=== PATIENT | male | born 1965 | race Caucasian/White ===

== ENCOUNTER → 2018-01-10 11:00 | Outpatient (CLI) | payer MEDICARE, SELFPAY ==
[2018-01-10 16:19] LABS: Anion Gap 11 (5-15); BUN 8 mg/dL (7-18); BUN/Creat Ratio 10.3 RATIO (10-20); Calcium,Total 8.8 mg/dL (8.5-10.1); Chloride 89 mmol/L (98-107); Creatinine, Serum 0.77 mg/dL (0.70-1.30); EST Glomerular Filtration Rate 113 mL/min (>60); Est Glom Filt Rate - Afr Amer 137 mL/min (>60); Glucose 113 mg/dL (74-106); Potassium 3.6 mmol/L (3.5-5.1); Sodium Level 127 mmol/L (136-145)
== END ==
PROVIDERS: Family Provider Family Medicine; PCP Family Medicine; Visit Provider Urology
DX: N31.2 Flaccid neuropathic bladder, not elsewhere classified (principal)
CPT/HCPCS: 36415; 80048

== ENCOUNTER → 2018-01-18 10:31 | Outpatient (CLI) | payer MEDICARE, SELFPAY ==
--- NOTE | 2018-01-18 10:33 | US_ITS ---
US Kidney(s) complete (eg, kidneys T bladder) INDICATION: NEUROGENIC BLADDER COMPARISON: None TECHNIQUE: Ultrasonographic grayscale and Doppler investigation of the retroperitoneum including kidneys and urinary bladder FINDINGS: The right kidney measures 10.1 x 4.9 x 3.8 cm with a cortical thickness of 1.7 cm. There is no evidence of hydronephrosis, cyst, or shadowing calculus. The left kidney measures 9.6 x 4.3 x 5.3 cm with a cortical thickness of 1.9 cm. The left renal pelvis appears prominent, possibly due to parapelvic cysts. Multiple renal calculi are seen, measuring between 5 and 2 mm. The urinary bladder contains 173 mL prevoid and 130 mL postvoid. The prostate gland is prominent in size and lobulated, and bulges into the urinary bladder. US/Kidney and Bladder IMPRESSION: Residual postvoid urinary bladder volume is 130 mm, abnormal. Mild prostatomegaly with bulging of the prostate onto the urinary bladder. Correlate with PSA. Left renal pelviectasis or parapelvic renal cysts and multiple left renal calculi. at 2303 Reported and signed by: Katiana Nettles MD Electronically Signed: Katiana Nettles MD at 22:01 EST Tel , Service support ,
== END ==
PROVIDERS: Family Provider Family Medicine; PCP Family Medicine; Visit Provider Urology
DX: N31.9 Neuromuscular dysfunction of bladder, unspecified (principal); N20.0 Calculus of kidney
CPT/HCPCS: 76770

== ENCOUNTER 2020-08-01 19:31 | Emergency (ER) | payer MEDICARE, MEDICAID, SELFPAY ==
[2020-08-01 19:32] VITALS: BP 145/98; PULSE 99; RESP 18; TEMP 36.8; O2SAT 97; BMI 23.4
[2020-08-01 22:10] LABS: Bacteria 0 SEEN /hpf (None Seen); Mucous, Urine 0 SEEN /hpf (<or=2+); Red Blood Cells-Urine 0 SEEN /hpf (0-5); Squamous Epithelial Cells - UA 0 SEEN /hpf (0-5)
[2020-08-01 22:11] LABS: Color, Urine Yellow (Yellow); Glucose, Dipstick Normal (Normal); Ketone-Dipstick Negative (Negative); Leukocyte Esterase-Dipstick 25 /ul (Negative); Nitrite-Dipstick Negative (Negative); Occult Blood-Urine Negative /ul (Negative); Protein-Dipstick 15 mg/dl (Negative); Urine Bilirubin Dipstick Negative (Negative); Urine Clarity Sl. Cloudy (Clear); Urine Urobilinogen Normal (Normal)
[2020-08-01 22:26] VITALS: BP 161/103; PULSE 81; RESP 16; O2SAT 99
[2020-08-01] MEDS: 0.9% Normal Saline 1,000 ML 1000 ML IV (22:41)
--- NOTE | 2020-08-01 22:44 | CT_ITS ---
HISTORY: ABDOMINAL PAIN WITH DISTENTION TECHNIQUE: Helically acquired images were obtained of the abdomen and pelvis without oral or IV contrast. A radiation dose optimization technique was used for this scan. COMPARISON: A renal ultrasound comparison study is available from January 18, 2018. An x-ray of the abdomen is available from September 05, 2015. FINDINGS: # of images incl. paperwork: 470 LUNG BASES: clear. CT abdomen: The left hip is chronically dislocated. There is arthritis in a pseudoarticulation with hyperostosis to a degenerated pseudoacetabulum above the patient's left acetabulum from which the left femoral head has dislocated. This is indicative of severe chronic left hip dislocation. The right hip appears to be adequately aligned. There is a gentle dextroscoliosis within the lumbar spine. Some degenerative disc disease is present. Vertebral body height is otherwise preserved. There is gas and liquid distending the distal esophagus suggestive of a significant reflux disease. The gallbladder is contracted. The liver is displaced posteriorly by bowel, mostly colon. Thespleen, pancreas, and adrenal glands are normal. Nonobstructing left nephrolith. The right kidney is normal. There is some external rotation to the left kidney. An exophytic mass to the left kidney is hypodense, and statistically represents a benign cyst.. The aorta is normal. There is no intra-or extrahepatic biliary ductal dilatation. CT pelvis: No ascites is present. The prostate gland is slightly enlarged indenting into the posterior aspect of the urinary bladder. Within the right chest wall extending down the anterior right abdominal wall, extending into the pelvis through the lateral aspect of the right rectus abdominis muscle is a catheter likely a ventriculoperitoneal shunt.. The appendix is likely normal and tiny, coronal series 601 image 60. The bladder is decompressed with a Bowman catheter. A right posterior lateral bladder diverticulum is present. This is likely just anterior to the right ureterovesicular junction. Bilateral inguinal hernias are present. Both inguinal hernias containing the anterior borders of the urinary bladder greater on the left than right with some bladder wall thickening and induration of the surrounding fat. There may be some bowel wall thickening to the rectum. There is gaseous distention of the redundant sigmoid colon. There is gaseous distention of the transverse colon. The descending colon is almost completely decompressed. There is not a pathological volume of stool within the colon. Small bowel is normal. CT/Abdomen/Pelvis without Cont IMPRESSION: Gaseous distention of the transverse colon and the redundant sigmoid colon extending to the anterior abdominal wall into the abdomen out of the pelvis. This is of unknown etiology but could be due to delayed and decreased motility within the colon. Gas and fluid within a slightly distended esophagus suggestive of esophageal reflux disease. 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 Ventricular peritoneal catheter. Bilateral inguinal hernias containing fat and corners of the urinary bladder with some inflammation to the bladder extending into the left inguinal hernia. Diverticulum of the posterior right lateral aspect of the urinary bladder. The bladder does contain a Bowman catheter but is not completely decompressed. No bowel wall thickening. No constipation. Individualized dose optimization techniques were used for this CT. at 0006 Reported and signed by: Yuval Olson MD Electronically Signed: Yuval Olson MD at 0:05 EDT Tel , Service support ,
[2020-08-01 22:49] LABS: Amorphous Sediment 1+; White Blood Cells 0-5 SEEN /hpf (0-5)
[2020-08-01 22:49] LABS: Absolute Lymphocyte Count 2.59 X10^3/uL (0.83-4.51); Basophil# 0.04 X10^3/uL; Basophil% 0.4 % (0-1); Eosinophil# 0.17 X10^3/uL; Eosinophils% 1.9 % (0-5); Hematocrit 41.1 % (40-54); Hemoglobin 14.3 g/dL (13.0-16.5); Lymphocyte # 2.59 X10^3/ul (4.0); Lymphocyte % 28.6 % (19-41); Mean Corp Hgb Conc 34.8 g/dL (32-36); Mean Corpuscular Hgb 30.3 pg (27.0-32.0); Mean Corpuscular Volume 87.1 fL (80-94); Mean Platelet Vol. 10.1 fl (6.2-12.0); Monocyte# 1.29 X10^3/uL; Monocyte% 14.2 % (0-10); NRBC Flagged by Analyzer 0 % (0-5); Neutrophil # 4.96 X10^3/uL (2.7-7.7); Neutrophil % 54.7 % (47-70); Platelet Count 405 K/mm3 (150-450); RBC Distribution Width CV 12.2 % (11.6-14.6); Red Blood Count 4.72 M/mm3 (4.6-6.2); White Blood Count 9.1 K/mm3 (4.4-11.0)
--- NOTE | 2020-08-01 22:57 | ED.VIS.GI ---
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 Sister who is his primary caregiver, noticed that patient seemed to have a hernia develop in his left groin yesterday. No overlying redness and they called the PCP office who recommended be reevaluated in 24 hours. In addition patient seems to have increased urinary frequency but less drainage. The sister is concerned that he might have urinary retention. Finally, patient has been more distended in his abdomen lately. Did not complain of any abdominal pain. No reported nausea or vomiting. No fever or chills. No chest pain, shortness breath or difficulty breathing. No other complaints at this time. Patient is wheelchair-bound at baseline. Sister states he has had problem with urinary retention in the past and is seen Dr. Oliva. It is been recommended that he requires straight catheterization however he is a difficult catheterization apparently. In addition, he does have history of chronic constipation and has to receive enemas/manual stimulation to have bowel movements. No change in the caliber of his stools. Past Medical History - Allergies and Home Meds Allergies/Adverse Reactions: Allergies Iodinated Contrast Media [Iodinated Contrast Media - IV Dye] Allergy (Verified 08/01/20 19:34) Anaphylaxis nitrofurantoin Adverse Reaction (Verified 08/01/20 19:34) Upset Stomach Primary Care Physician: Damian Aldana MD [Primary Care Provider] - Past Medical History: - - Hydrocephalus, motor neuron damage, urinary retention Smoking Status: Never smoker Review of Systems General: Denies: Chills, Fever, Sweats Eyes: Denies: Visual changes - bilaterally, Diplopia ENT: Denies: Rhinorrhea, Sore throat Cardiovascular: Denies: Chest pain, Palpitations Respiratory: Denies: Dyspnea, Cough, Dyspnea on exertion Gastrointestinal: Reports: Abdominal pain, Constipation - Chronic. Denies: Nausea, Vomiting, Diarrhea, Melena, Hematochezia Genitourinary: Reports: - - Decreased frequency of urination/decreased urinary volumes. Denies: Dysuria, Hematuria, Frequency Musculoskeletal: Denies: Back pain, Extremity Pain Skin: Denies: Rash, Wounds Neurological: Reports: Weakness - Chronic, lower extremities. Denies: Headache, Numbness Physical Exam Vital Signs/Narrative: Vital Signs Temp Pulse Resp BP Pulse Ox 08/01/20 22:26 81 16 161/103 H 99 08/01/20 19:32 98.3 F 99 18 145/98 H 97 Inital Vital Signs reviewed: Yes General: Well nourished, Well developed, No Acute Distress Head: Normocephalic, Atraumatic Eyes: Perrl, EOMI ENT: Moist mucous membranes, No rhinorrhea Neck: Supple, Nontender Cardiovascular: Regular rate, Regular rhythm, No murmurs Respiratory: No distress, CTA bilaterally, Chest nontender Abdomen: Soft, Normal bowel sounds, Tender - Suprapubic region, Hypoactive bowel sounds, Inguinal hernia - Left, soft, no overlying erythema, reducible, - - Distended, palpable bladder. Negative for: Guarding : - - Normal external genitalia, normal testicles, normal lie, no testicular mass noted Extremities: Nontender, No edema Skin: Normal color, No rash Neurological: Alert, Oriented x3, Cranial nerves II-XII grossly intact, Normal Sensation, - - Atrophy and weakness of the lower extremities?chronic Psychological: Normal affect, Normal Mood Diagnostic/Tx/Re-eval Clinical Impression(s) from Imaging Studies Abdomen/Pelvis CT 08/01/20 22:44 IMPRESSION: Gaseous distention of the transverse colon and the redundant sigmoid colon extending to the anterior abdominal wall into the abdomen out of the pelvis. This is of unknown etiology but could be due to delayed and decreased motility within the colon. Gas and fluid within a slightly distended esophagus suggestive of esophageal reflux disease. 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 Ventricular peritoneal catheter. Bilateral inguinal hernias containing fat and corners of the urinary bladder with some inflammation to the bladder extending into the left inguinal hernia. Diverticulum of the posterior right lateral aspect of the urinary bladder. The bladder does contain a Bowman catheter but is not completely decompressed. No bowel wall thickening. No constipation. Individualized dose optimization techniques were used for this CT. at 0006 Reported and signed by: Yuval Olson MD Electronically Signed: Yuval Olson MD at 0:05 EDT Tel , Service support , Laboratory Data 08/01/20 08/01/20 08/01/20 21:04 22:15 22:15 WBC 9.1 RBC 4.72 Hgb 14.3 Hct 41.1 MCV 87.1 MCH 30.3 MCHC 34.8 RDW Std Deviation 39.0 RDW Coeff of Frieda 12.2 Plt Count 405 MPV 10.1 Immature Gran % (Auto) 0.200 Neut % (Auto) 54.7 Lymph % (Auto) 28.6 [place] % (Auto) 14.2 H Eos % (Auto) 1.9 Baso % (Auto) 0.4 Absolute Neuts (auto) 5.0 Absolute Lymphs (auto) 2.59 Nucleated RBC % 0 Sodium 129 L Potassium 3.7 Chloride 94 L Carbon Dioxide 28.0 Anion Gap 7 BUN 12 Creatinine 0.74 Estim Creat Clear Calc 82.58 Est GFR (MDRD) Af Amer 142 Est GFR (MDRD) Non-Af 117 BUN/Creatinine Ratio 16.1 Glucose 106 Lactic Acid Calcium 9.0 Total Bilirubin 0.30 AST 15 ALT 22 Alkaline Phosphatase 73 Total Protein 7.3 Albumin 3.5 Globulin 3.8 Albumin/Globulin Ratio 0.9 Lipase 123 Urine Color Yellow Urine Clarity Sl. Cloudy Urine pH 7.0 Ur Specific [place] 1.010 Urine Protein 15 H Urine Glucose (UA) Normal Urine Ketones Negative Urine Occult Blood Negative Urine Nitrite Negative Urine Bilirubin Negative Urine Urobilinogen Normal Ur Leukocyte Esterase 25 H Urine RBC 0 SEEN Urine WBC 0-5 SEEN Ur Squamous Epith Cells 0 SEEN Amorphous Sediment 1+ Urine Bacteria 0 SEEN Urine Mucus 0 SEEN 08/01/20 22:15 WBC RBC Hgb Hct MCV MCH MCHC RDW Std Deviation RDW Coeff of Frieda Plt Count MPV Immature Gran % (Auto) Neut % (Auto) Lymph % (Auto) [place] % (Auto) Eos % (Auto) Baso % (Auto) Absolute Neuts (auto) Absolute Lymphs (auto) Nucleated RBC % Sodium Potassium Chloride Carbon Dioxide Anion Gap BUN Creatinine Estim Creat Clear Calc Est GFR (MDRD) Af Amer Est GFR (MDRD) Non-Af BUN/Creatinine Ratio Glucose Lactic Acid 0.9 Calcium Total Bilirubin AST ALT Alkaline Phosphatase Total Protein Albumin Globulin Albumin/Globulin Ratio Lipase Urine Color Urine Clarity Urine pH Ur Specific [place] Urine Protein Urine Glucose (UA) Urine Ketones Urine Occult Blood Urine Nitrite Urine Bilirubin Urine Urobilinogen Ur Leukocyte Esterase Urine RBC Urine WBC Ur Squamous Epith Cells Amorphous Sediment Urine Bacteria Urine Mucus - Medical Decision Making Patient is evaluated for difficulty urinating as well as a swelling mass in his left groin area. Physical exam is consistent with a distended abdomen as well as tenderness in the suprapubic region and a reducible left inguinal hernia. Bladder scan performed which shows greater than 500 cc of urine. Bowman catheter is placed and patient ultimately has 1800 cc of urine out. He has improvement of symptoms with this. In addition his hernia seems to improve. CT of the abdomen pelvis is obtained without contrast as patient does have a history of anaphylaxis to contrast. It shows a significant gaseous distention as well as bilateral inguinal hernias with some bladder in the left hernia. This is discussed with surgery who feels that decompression of the bladder is likely treatment enough and patient can follow-up outpatient for the hernias. Patient will be given urology for outpatient follow-up. He has normal kidney function and no significant laboratory normalities. Sister who is his process designer is agreeable with this plan. He is seeing Dr. Oliva the past and is referred back to him for further management of his urinary retention and Bowman catheter. She is given return precautions. Patient and sister verbalized agreement understand this plan. Patient discharged home in improved and stable condition. ED Disposition - Plan for ED Patient: Disposition: Home or Assisted Living Diagnosis: Acute urinary retention, Inguinal hernia, Abdominal distension (gaseous) Instructions: ED Urinary Retention Male, ED Hernia Inguinal, ED Constipation Referrals: Damian Aldana MD [Primary Care Provider] - Kevyn Oliva MD [STAFF PHYSICIAN] - Chang Grant MD [STAFF PHYSICIAN] - Additional Instructions: Please call urology on Tuesday to arrange follow-up. His Bowman catheter will need to stay in for at least 5 to 7 days. This will help decompress the bladder and let the bladder heal from his urinary retention. Given you follow-up information for general surgery for further evaluation of his hernias. Continue with a stool regime to help limit constipation.
[2020-08-01 23:02] LABS: ALB/GLOB Ratio 0.9 RATIO (0.9-2.4); AST(SGOT) 15 U/L (15-37); Alanine Aminotransfer ALT/SGPT 22 U/L (16-61); Albumin, Serum 3.5 g/dL (3.2-5.0); Alkaline Phosphatase 73 U/L (45-117); Anion Gap 7 (5-15); BUN 12 mg/dL (7-18); BUN/Creat Ratio 16.1 RATIO (10-20); Chloride 94 mmol/L (98-107); Creatinine, Serum 0.74 mg/dL (0.70-1.30); EST Glomerular Filtration Rate 117 mL/min (>60); Est Glom Filt Rate - Afr Amer 142 mL/min (>60); Estimated Creatinine Clearance 82.58 ml/min; Globulin 3.8 g/dL (2.2-4.2); Glucose 106 mg/dL (74-106); Lipase 123 U/L (73-393); Potassium 3.7 mmol/L (3.5-5.1); Protein, Total 7.3 g/dL (6.4-8.2); Sodium Level 129 mmol/L (136-145)
[2020-08-01 23:05] LABS: Lactic Acid 0.9 mmol/L (0.4-1.9)
[2020-08-02 00:27] VITALS: BP 146/96; PULSE 81; RESP 16; O2SAT 96
== END 2020-08-02 00:48 | disposition home or self-care (01) ==
PROVIDERS: Emergency Provider Emergency Medicine; PCP Family Medicine
DX: R33.9 Retention of urine, unspecified (principal); K40.90 Unilateral inguinal hernia, without obstruction or gangrene, not specified as recurrent; R14.0 Abdominal distension (gaseous)
CPT/HCPCS: 51702; 74176; 80053; 81001; 83605; 83690; 85025; 96360; 96361; 99285; J7030; A4216

== ENCOUNTER 2020-08-18 11:44 | Emergency (ER) | payer MEDICARE, MEDICAID, SELFPAY ==
[2020-08-18 11:45] VITALS: BP 140/115; PULSE 94; RESP 16; TEMP 36.8; O2SAT 98; BMI 24.0
--- NOTE | 2020-08-18 12:44 | RAD_ITS ---
STUDY: X-RAY - ABDOMEN/PELVIS REASON FOR EXAM: Male, 54 years old. ABDOMINAL PAIN, NO BOWEL MOVEMENT IN 6 DAYS TECHNIQUE: Single AP view of the abdomen / pelvis. COMPARISON: 08/01/2020 FINDINGS: Normal visualized lung bases. There is gaseous distention of the colon, most compatible with a colonic ileus. There is no demonstrated free abdominal air. The visualized liver, spleen and kidneys are grossly normal in size and morphology. Normal soft tissue structures. Normal visualized osseous structures. RAD/Abdomen Single View IMPRESSION: There is gaseous distention of the colon, most compatible with a colonic ileus. Electronically Signed: Julius Steven, at 13:00 EDT Tel , Service support ,
--- NOTE | 2020-08-18 13:54 | ED.VIS.GI ---
History of Present Illness Chief Complaint: Constipation Narrative: Patient presenting for evaluation secondary to constipation. Patient sister who is his warehouse administrator states that he has not had a bowel movement since Tuesday. 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 Patient had been administered mineral oil, suppositories, and his sister even tried disimpaction which was not successful. Patient denies any abdominal pain. No fevers. No nausea or vomiting. She is concerned because he has a history of an inguinal hernia but he denies that this is painful or feels as if it is incarcerated. View of systems otherwise negative. Past Medical History - Allergies and Home Meds Allergies/Adverse Reactions: Allergies Iodinated Contrast Media [Iodinated Contrast Media - IV Dye] Allergy (Verified 08/18/20 11:47) Anaphylaxis nitrofurantoin Adverse Reaction (Verified 08/18/20 11:47) Upset Stomach Primary Care Physician: Lyndon Sanders MD [Primary Care Provider] - Prior records reviewed: Yes Lives: With Family Smoking Status: Never smoker Alcohol: None Drugs: None Review of Systems General: Denies: Chills, Fever, Sweats Eyes: Denies: Visual changes - bilaterally, Diplopia ENT: Denies: Rhinorrhea, Sore throat Cardiovascular: Denies: Chest pain, Palpitations Respiratory: Denies: Dyspnea, Cough, Dyspnea on exertion Gastrointestinal: Reports: Constipation Genitourinary: Denies: Dysuria, Hematuria, Frequency Musculoskeletal: Denies: Back pain, Extremity Pain Skin: Denies: Rash, Wounds Neurological: Denies: Headache Psych: Denies: Depression Hematologic: Denies: Easy bruising Allergy: Denies: Uticaria Physical Exam Vital Signs/Narrative: Vital Signs Temp Pulse Resp BP Pulse Ox 08/18/20 11:45 98.2 F 94 16 140/115 H 98 Inital Vital Signs reviewed: Yes General: - - Thin appearing male no acute distress Head: Normocephalic, Atraumatic Eyes: Perrl, EOMI ENT: Moist mucous membranes, No rhinorrhea Neck: Supple, Nontender Cardiovascular: Regular rate, Regular rhythm, No murmurs, - - 2+ radial pulses bilaterally symmetric Respiratory: No distress, CTA bilaterally, Chest nontender Abdomen: Soft, Nontender, Nondistended, Normal bowel sounds Rectal: - - Rectal exam demonstrates nonthrombosed nontender external hemorrhoids, there was no stool noted within the vault. Rectal exam was nontender. Extremities: Nontender, - - Chronic contractures noted Neurological: - - Paraplegia Diagnostic/Tx/Re-eval - Medical Decision Making Patient presents with constipation. X-ray shows no signs of obstruction, but does show a significant amount of stool within the patient's large intestines consistent with a colonic ileus by my personal interpretation as well as radiology. Patient be placed on a course of magnesium citrate. He is recommended follow-up with primary care. ED Disposition - Plan for ED Patient: Disposition: Home or Assisted Living Diagnosis: Constipation Instructions: ED Constipation Referrals: Lyndon Sanders MD [Primary Care Provider] - 1-2 Days if not improving
[2020-08-18] MEDS: Magnesium Citrate 300 ML PO (14:05)
== END 2020-08-18 14:06 | disposition home or self-care (01) ==
PROVIDERS: Emergency Provider Emergency Medicine; PCP Family Medicine
DX: K59.00 Constipation, unspecified (principal)
CPT/HCPCS: 74018; 99282

== ENCOUNTER 2020-12-11 17:43 | Emergency (ER) | payer MEDICARE, MEDICAID, SELFPAY ==
[2020-12-11 17:44] VITALS: BP 140/91; PULSE 85; RESP 16; TEMP 36.8; O2SAT 97
--- NOTE | 2020-12-11 19:34 | CT_ITS ---
STUDY: CT ABDOMEN AND PELVIS WITHOUT CONTRAST REASON FOR EXAM: Male, 55 years old. 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 Sagittal and coronal images were reconstructed. Individualized dose optimization techniques were used for this CT. COMPARISON: CT abdomen and pelvis 08/01/2020 FINDINGS: The visualized lung bases are unremarkable. The visualized portions of the heart are within normal limits. Normal liver. Normal gallbladder and extrahepatic biliary system. Normal spleen. Normal pancreas. Normal bilateral adrenal glands. Normal right kidney. 4 mm nonobstructing left nephrolith. 19 mm left renal cortical cyst. Normal visualized stomach. Normal small intestine. Colonic interposition between the liver and diaphragm. Increased stool and gas in the colon. Appendix is not identified. Normal abdominal aorta. Normal inferior vena cava. Normal retroperitoneum. Bladder partially decompressed with a SILVA catheter. Residual intravenous contrast or stones noted within the bladder. 2.9 x 3.6 cm right-sided bladder diverticulum. Bilateral fat-containing inguinal hernias. Peritoneal catheter noted in the anterior abdominal wall terminating in the left lower quadrant. No free fluid. Possible mild scoliosis. Chronically dislocated left hip superiorly with severe degenerative change. IMPRESSION: Increased stool and colonic ileus. Nonobstructing nephrolith on the left. Bladder stones versus residual intravenous contrast. Peritoneal catheter. Right-sided bladder diverticulum. The dislocated left hip. Electronically Signed: Chris Romero MD at 20:50 EST , Service support , CT/Abdomen/Pelvis without Cont
[2020-12-11 20:11] LABS: Absolute Lymphocyte Count 1.76 X10^3/uL (0.83-4.51); Absolute Neutrophil Count 3.1 X10^3/uL (2.0-7.7); Basophil# 0.03 X10^3/uL; Basophil% 0.5 % (0-1); Eosinophil# 0.04 X10^3/uL; Eosinophils% 0.7 % (0-5); Hematocrit 44.2 % (40-54); Hemoglobin 14.7 g/dL (13.0-16.5); Lymphocyte # 1.76 X10^3/ul (4.0); Mean Corp Hgb Conc 33.3 g/dL (32-36); Mean Corpuscular Hgb 28.7 pg (27.0-32.0); Mean Corpuscular Volume 86.2 fL (80-94); Mean Platelet Vol. 9.9 fl (6.2-12.0); Monocyte# 0.75 X10^3/uL; Monocyte% 13.2 % (0-10); NRBC Flagged by Analyzer 0 % (0-5); Neutrophil # 3.08 X10^3/uL (2.7-7.7); Neutrophil % 54.4 % (47-70); Platelet Count 425 K/mm3 (150-450); RBC Distribution Width CV 12.5 % (11.6-14.6); RBC Distribution Width SD 39.4 fl (35.1-43.9); Red Blood Count 5.13 M/mm3 (4.6-6.2); White Blood Count 5.7 K/mm3 (4.4-11.0)
--- NOTE | 2020-12-11 20:14 | ED.DCSUM_ITS ---
- ER Visit Summary Date of Service: 12/11/20 Chief Complaint: Constipation History of Present Illness: The patient is a 55 M presenting with constipation. Sister is his caregiver and is providing history. Patient has a history of hydrocephalus at . He has had chronic constipation for his entire life. Sister states they typically give him Metamucil, suppositories, enemas at home. His last bowel movement was 5 days ago. He has not been vomiting. No fever. Physical Examination: Vitals are stable. Patient is afebrile. Alert no acute distress. HEENT exam is unremarkable. Neck is supple. Lungs are clear and equal bilaterally. Heart is regular rate and rhythm. Abdomen is soft nontender nondistended. No guarding or rebound Rectal: nontender, no stool impaction Extremities are unremarkable. Skin is warm and dry. Remainder of exam is unremarkable. Emergency Department Course and Treatment: CBC, chemistries show sodium 129, similar to previous. CT abdomen/pelvis shows nonobstructing nephrolith on the left. Bladder stones versus residual intravenous contrast. Peritoneal catheter. Right-sided bladder diverticulum. Chronically dislocated left hip. Patient was offered enema. Family declines. They request mag citrate for home. He will follow-up with his primary care physician and GI physician. Advised return to ED for worsening complaints. Disposition: Discharge home Impression: Constipation This note was generated with [employer] dictation software. It may contain incorrect words, spelling, and punctuation that were not noted in review of the chart prior to signing ED Disposition - Plan for ED Patient: Referrals: Lyndon Sanders MD [Primary Care Provider] -
[2020-12-11 20:21] VITALS: BP 149/105; PULSE 87; RESP 16; O2SAT 96
[2020-12-11 20:29] LABS: Anion Gap 7 (5-15); BUN 6 mg/dL (7-18); BUN/Creat Ratio 8.9 RATIO (10-20); Calcium,Total 9.1 mg/dL (8.5-10.1); Chloride 95 mmol/L (98-107); Creatinine, Serum 0.68 mg/dL (0.70-1.30); EST Glomerular Filtration Rate 131 mL/min (>60); Est Glom Filt Rate - Afr Amer 158 mL/min (>60); Estimated Creatinine Clearance 96.72 ml/min; Glucose 87 mg/dL (74-106); Sodium Level 129 mmol/L (136-145)
--- NOTE | 2020-12-11 22:24 | ED.DEP ---
ED Disposition - Plan for ED Patient: Instructions: ED Constipation (Adult) Referrals: Lyndon Sanders MD [Primary Care Provider] -
[2020-12-11] MEDS: Magnesium Citrate 300 ML PO (22:34)
[2020-12-11 22:35] VITALS: BP 146/93; PULSE 89; RESP 16; O2SAT 95
== END 2020-12-11 22:50 | disposition home or self-care (01) ==
LOC: ED 19:37
PROVIDERS: Emergency Provider Emergency Medicine; PCP Family Medicine
DX: K59.00 Constipation, unspecified (principal)
CPT/HCPCS: 74176; 80048; 85025; 99283; A4216

== ENCOUNTER 2020-12-19 15:35 | Emergency (ER) | payer MEDICARE, MEDICAID, SELFPAY ==
[2020-12-19 15:36] VITALS: BP 163/139; PULSE 100; RESP 18; TEMP 36.4; O2SAT 98; BMI 22.6
--- NOTE | 2020-12-19 16:16 | ED.DCSUM_ITS ---
- ER Visit Summary Date of Service: 12/19/20 Chief Complaint: Needs Hannon catheter change History of Present Illness: The patient is a 55 M presenting due to hannon catheter not draining. Family states his catheter is changed once a month. States the catheter today stopped draining. Patient presented with suprapubic abdominal pain. No vomiting. No blood in urine. No fever. No other complaints. Physical Examination: Vitals are stable. Patient is afebrile. Alert no acute distress. HEENT exam is unremarkable. Neck is supple. Lungs are clear and equal bilaterally. Heart is regular rate and rhythm. Abdomen is soft nontender nondistended. No guarding or rebound Extremities are unremarkable. Skin is warm and dry. Remainder of exam is unremarkable. Emergency Department Course and Treatment: Hannon catheter was changed on patient's arrival. He feels much improved. Catheter is draining clear yellow urine. He will follow-up with his urologist. Advised return to ED for worsening complaints. Disposition: Discharge home Impression: Hannon catheter change This note was generated with [employer] dictation software. It may contain incorrect words, spelling, and punctuation that were not noted in review of the chart prior to signing ED Disposition - Plan for ED Patient: Referrals: Lyndon Sanders MD [Primary Care Provider] -
--- NOTE | 2020-12-19 16:19 | ED.DEP ---
ED Disposition - Plan for ED Patient: Instructions: ED Bowman Catheter, Care Referrals: Lyndon Sanders MD [Primary Care Provider] -
[2020-12-19 16:22] VITALS: BP 152/93; PULSE 89; RESP 17; O2SAT 97
[2020-12-19 16:41] VITALS: RESP 16
== END 2020-12-19 16:41 | disposition home or self-care (01) ==
LOC: ED 16:15
PROVIDERS: Emergency Provider Emergency Medicine; PCP Family Medicine
DX: Z46.6 Encounter for fitting and adjustment of urinary device (principal); R10.2 Pelvic and perineal pain
CPT/HCPCS: 51702; 87077; 87086; 87088; 87186; 99283

== ENCOUNTER 2020-12-31 08:45 | Emergency (ER) | payer MEDICARE, MEDICAID, SELFPAY ==
[2020-12-31 08:45] VITALS: BP 145/90; PULSE 98; RESP 16; TEMP 35.5; O2SAT 97; BMI 19.3
--- NOTE | 2020-12-31 09:21 | ED.VIS.GEN ---
History of Present Illness Chief Complaint: Bowman C/O Detail of Chief Complaint: Bowman was not functioning and was either removed or fell out Informant: Patient, Family Onset: Hours Context: Sudden Onset Timing: Continuous Quality: Problems with Bowman Location: Urethral, indwelling Current Severity: - - Bowman is presently out Maximum Severity: - - Not applicable Worsened by: Occluded Relieved by: Nothing Associated Symptoms: No associated symptoms Narrative: Is a 55-year-old man with history of urinary retention. Had Bowman placed July 2020. Bowman has been in place since. There is been no complaint of fever or chills. There is no plaints of nausea or vomiting. He does report pain that he points to the suprapubic area. Patient and family concerned because of the sediment. Apparently, he has had problems for more than 24 hours. He denies cardiac respiratory symptoms. He denies URI symptoms. He is not on an anticoagulant. She is not a good informant. Prior similar symptoms: Yes Recent Illness/Hospitalization: No - Past Medical History (1) History of urinary retention Status: Acute Past Medical History - Allergies and Home Meds Allergies/Adverse Reactions: Allergies Iodinated Contrast Media [Iodinated Contrast Media - IV Dye] Allergy (Verified 12/31/20 08:45) Anaphylaxis nitrofurantoin Adverse Reaction (Verified 12/31/20 08:45) Upset Stomach Primary Care Physician: Lyndon Sanders MD [Primary Care Provider] - Prior records reviewed: Yes Surgical History: noncontributory Lives: With Family Smoking Status: Never smoker Alcohol: None Drugs: None Review of Systems General: Denies: Chills, Fever, Malaise, Subjective, Sweats Eyes: Denies: Visual changes - bilaterally, Blurred Vision - bilaterally ENT: Denies: Rhinorrhea, Sore throat Cardiovascular: Denies: Chest pain, Palpitations Respiratory: Denies: Dyspnea, Cough, Dyspnea on exertion Gastrointestinal: Reports: Abdominal pain. Denies: Nausea, Vomiting Genitourinary: Reports: - - Inability to urinate. Denies: Dysuria, Hematuria, Frequency Musculoskeletal: Denies: Myalgias, Arthralgias, Back pain, Swelling, Extremity Pain Skin: Denies: Rash, Wounds Neurological: Denies: Weakness, Parasthesia Psych: Reports: Depression Hematologic: Denies: Easy bruising, Easy bleeding Physical Exam Vital Signs/Narrative: Vital Signs Temp Pulse Resp BP Pulse Ox 12/31/20 08:45 96 F L 98 16 145/90 H 97 Inital Vital Signs reviewed: Yes General: Well nourished, Well developed Head: Normocephalic, Atraumatic Eyes: Perrl, EOMI. Negative for: Pale conjunctiva, Scleral icterus ENT: Moist mucous membranes, No rhinorrhea Neck: Supple, Nontender, No lymphadenopathy, No JVD Cardiovascular: Regular rate, Regular rhythm, No murmurs, Normal S1, Normal S2 Respiratory: No distress, CTA bilaterally, Chest nontender Abdomen: Soft, Nondistended, Normal bowel sounds, Tender, Guarding, Mass - Distended bladder. Negative for: Nontender, No masses, Rebound tenderness Rectal: Deferred : - - Circumcised male without penile lesions or discharge. Testes descended bilaterally. Back: Nontender, Normal Inspection Extremities: Nontender, No edema Skin: Normal color, No rash Neurological: Alert, Oriented x3, Cranial nerves II-XII grossly intact Psychological: Depressed Diagnostic/Tx/Re-eval Laboratory Results 12/31/20 12/31/20 12/31/20 09:10 09:10 10:50 WBC 12.6 H RBC 5.15 Hgb 15.0 Hct 44.3 MCV 86.0 MCH 29.1 MCHC 33.9 RDW Std Deviation 38.8 RDW Coeff of Frieda 12.3 Plt Count 424 MPV 10.2 Immature Gran % (Auto) 0.400 Neut % (Auto) 78.5 H Lymph % (Auto) 9.8 L [place] % (Auto) 10.7 H Eos % (Auto) 0.2 Baso % (Auto) 0.4 Absolute Neuts (auto) 9.9 H Absolute Lymphs (auto) 1.23 Nucleated RBC % 0 Sodium 130 L Potassium 3.6 Chloride 96 L Carbon Dioxide 29.0 Anion Gap 5 BUN 8 Creatinine 0.84 Estim Creat Clear Calc 78.30 Est GFR (MDRD) Af Amer 123 Est GFR (MDRD) Non-Af 101 BUN/Creatinine Ratio 9.5 L Glucose 95 Lactic Acid Calcium 9.0 Urine Color Yellow Urine Clarity Clear Urine pH 7.0 Ur Specific [place] 1.010 Urine Protein 30 H Urine Glucose (UA) Normal Urine Ketones Negative Urine Occult Blood 25 H Urine Nitrite Negative Urine Bilirubin Negative Urine Urobilinogen Normal Ur Leukocyte Esterase 500 H Urine RBC 0 SEEN Urine WBC 10-25 SEEN Ur Squamous Epith Cells 0 SEEN Urine Bacteria 2+ Urine Mucus 0 SEEN 12/31/20 11:23 WBC RBC Hgb Hct MCV MCH MCHC RDW Std Deviation RDW Coeff of Frieda Plt Count MPV Immature Gran % (Auto) Neut % (Auto) Lymph % (Auto) [place] % (Auto) Eos % (Auto) Baso % (Auto) Absolute Neuts (auto) Absolute Lymphs (auto) Nucleated RBC % Sodium Potassium Chloride Carbon Dioxide Anion Gap BUN Creatinine Estim Creat Clear Calc Est GFR (MDRD) Af Amer Est GFR (MDRD) Non-Af BUN/Creatinine Ratio Glucose Lactic Acid 1.0 Calcium Urine Color Urine Clarity Urine pH Ur Specific [place] Urine Protein Urine Glucose (UA) Urine Ketones Urine Occult Blood Urine Nitrite Urine Bilirubin Urine Urobilinogen Ur Leukocyte Esterase Urine RBC Urine WBC Ur Squamous Epith Cells Urine Bacteria Urine Mucus Lactate is normal. Patient has sepsis. Patient did not have severe sepsis or evidence of endorgan injury. Will discharge with levofloxacin. He is to follow-up with his primary care physician in 2 to 3 days. - Medical Decision Making With history of urinary retention difficulty urinating will obtain a basic metabolic panel to assess renal function. UA was obtained to assess for infection as well as CBC. Bowman was ordered since patient has chronic urinary retention. Patient has 2 sirs criteria. Lactate was ordered as well as blood cultures. Since she has a chronic indwelling Bowman levofloxacin was ordered per sepsis treatment order set. If lactate is normal he is a candidate for home therapy otherwise will call hospitalist for admission. ED Disposition - Plan for ED Patient: Disposition: Home or Assisted Living Diagnosis: Urinary tract infection associated with catheterization of urinary tract, Sepsis Instructions: ED Urinary Retention, Male, ED Bladder Infection, Male (Adult) Prescriptions: Levofloxacin 750 mg PO DAILY #7 tab Transmission Status: [id number] Referrals: Lyndon Sanders MD [Primary Care Provider] - 3-5 Days
[2020-12-31 09:42] LABS: Absolute Lymphocyte Count 1.23 X10^3/uL (0.83-4.51); Absolute Neutrophil Count 9.9 X10^3/uL (2.0-7.7); Basophil# 0.05 X10^3/uL; Basophil% 0.4 % (0-1); Eosinophil# 0.03 X10^3/uL; Eosinophils% 0.2 % (0-5); Hematocrit 44.3 % (40-54); Lymphocyte # 1.23 X10^3/ul (4.0); Lymphocyte % 9.8 % (19-41); Mean Corp Hgb Conc 33.9 g/dL (32-36); Mean Corpuscular Hgb 29.1 pg (27.0-32.0); Mean Platelet Vol. 10.2 fl (6.2-12.0); Monocyte# 1.35 X10^3/uL; Monocyte% 10.7 % (0-10); NRBC Flagged by Analyzer 0 % (0-5); Neutrophil # 9.85 X10^3/uL (2.7-7.7); Neutrophil % 78.5 % (47-70); Platelet Count 424 K/mm3 (150-450); RBC Distribution Width CV 12.3 % (11.6-14.6); RBC Distribution Width SD 38.8 fl (35.1-43.9); Red Blood Count 5.15 M/mm3 (4.6-6.2); White Blood Count 12.6 K/mm3 (4.4-11.0)
[2020-12-31 09:56] LABS: Anion Gap 5 (5-15); BUN 8 mg/dL (7-18); BUN/Creat Ratio 9.5 RATIO (10-20); Chloride 96 mmol/L (98-107); Creatinine, Serum 0.84 mg/dL (0.70-1.30); EST Glomerular Filtration Rate 101 mL/min (>60); Est Glom Filt Rate - Afr Amer 123 mL/min (>60); Glucose 95 mg/dL (74-106); Potassium 3.6 mmol/L (3.5-5.1); Sodium Level 130 mmol/L (136-145)
[2020-12-31 10:44] VITALS: RESP 16
[2020-12-31 10:55] LABS: Mucous, Urine 0 SEEN /hpf (<or=2+); Red Blood Cells-Urine 0 SEEN /hpf (0-5); Squamous Epithelial Cells - UA 0 SEEN /hpf (0-5)
[2020-12-31 10:57] LABS: Color, Urine Yellow (Yellow); Glucose, Dipstick Normal (Normal); Ketone-Dipstick Negative (Negative); Leukocyte Esterase-Dipstick 500 /ul (Negative); Nitrite-Dipstick Negative (Negative); Occult Blood-Urine 25 /ul (Negative); Protein-Dipstick 30 mg/dl (Negative); Urine Bilirubin Dipstick Negative (Negative); Urine Clarity Clear (Clear); Urine Urobilinogen Normal (Normal)
[2020-12-31 11:03] LABS: White Blood Cells 10-25 SEEN /hpf (0-5)
[2020-12-31 11:04] LABS: Bacteria 2+ /hpf (None Seen)
[2020-12-31] MEDS: levoFLOXacin IV 750 MG/150 ML BAG 100 MG IV (11:30)
[2020-12-31 13:56] VITALS: BP 145/80; PULSE 85; RESP 18; O2SAT 96
== END 2020-12-31 13:58 | disposition home or self-care (01) ==
PROVIDERS: Emergency Provider Emergency Medicine; PCP Family Medicine
DX: N39.0 Urinary tract infection, site not specified (principal); A41.9 Sepsis, unspecified organism
CPT/HCPCS: 51702; 80048; 81001; 83605; 85025; 87040; 87077; 87086; 87088; 87186; 96365; 96366; 99285; J7050; A4216

== ENCOUNTER 2021-02-14 07:49 | Emergency (ER) | payer MEDICARE, MEDICAID, SELFPAY ==
[2021-02-14 07:50] VITALS: BP 149/94; PULSE 95; RESP 16; TEMP 36.6; O2SAT 99
[2021-02-14 08:05] VITALS: BP 149/94; PULSE 95; RESP 16; TEMP 36.6; O2SAT 99
--- NOTE | 2021-02-14 08:14 | ED.VIS.GEN ---
History of Present Illness Chief Complaint: Bowman C/O Informant: Patient, Family Narrative: Patient is a 55-year-old male with myelodysplastic disorder with a history of urinary retention since this past July. He is a chronic indwelling Bowman catheter. He typically gets this changed monthly. Have been having some issues with it. Lately it has been leaking. It typically would get change in 6 more days so they are coming in to request to be changed now. The patient denies any other symptoms whatsoever. No abdominal pain. No fevers or chills. Denies any back pain. They have not noticed any blood in the urine. Have noticed a strong smell but she states that it almost always smells strong. It has been otherwise draining appropriately previously. They did try to get a hold of the patient's urologist yesterday but they were not able to get a hold of them. Past Medical History - Allergies and Home Meds Allergies/Adverse Reactions: Allergies Iodinated Contrast Media [Iodinated Contrast Media - IV Dye] Allergy (Verified 12/31/20 08:45) Anaphylaxis nitrofurantoin Adverse Reaction (Verified 12/31/20 08:45) Upset Stomach Primary Care Physician: Lyndon Sanders MD [Primary Care Provider] - As Needed Prior records reviewed: Yes Surgical History: noncontributory Smoking Status: Never smoker Review of Systems All systems negative except as indicated General: Denies: Chills, Fever ENT: Denies: Rhinorrhea, Sore throat Cardiovascular: Denies: Chest pain Respiratory: Denies: Dyspnea Gastrointestinal: Denies: Abdominal pain, Nausea, Vomiting Genitourinary: Denies: Dysuria, Hematuria Musculoskeletal: Denies: Back pain Skin: Denies: Rash Neurological: Denies: Headache Physical Exam Vital Signs/Narrative: Vital Signs Temp Pulse Resp BP Pulse Ox 02/14/21 08:05 97.9 F 95 16 149/94 H 99 02/14/21 07:50 97.9 F 95 16 149/94 H 99 Inital Vital Signs reviewed: Yes General: Well nourished, Well developed, - - Contractures of upper extremities Head: Normocephalic, Atraumatic Eyes: Perrl, EOMI ENT: Moist mucous membranes Neck: Supple Cardiovascular: Regular rate, Regular rhythm Respiratory: No distress Abdomen: Soft, Nontender, Nondistended : - - Indwelling Bowman catheter present. Clear/yellow urine in bag. Skin: Normal color, No rash Neurological: Alert Psychological: Normal affect, Normal Mood Diagnostic/Tx/Re-eval - Medical Decision Making Patient presents to the ED for leaking of his Bowman catheter. He denies any complaints whatsoever otherwise. He is supposed to have this changed in the next 6 days. At this time will replace the Bowman catheter now. I do not feel he needs tested for UTI as he has no other complaints. He is to follow-up with his urologist. Patient will be discharged home in stable condition. All questions were answered. ED Disposition - Plan for ED Patient: Disposition: Home or Assisted Living Diagnosis: Bowman catheter problem Instructions: Caring for Your Indwelling Urinary Catheter Referrals: Lyndon Sanders MD [Primary Care Provider] - As Needed
[2021-02-14 08:51] VITALS: RESP 15
== END 2021-02-14 08:51 | disposition home or self-care (01) ==
PROVIDERS: Emergency Provider Emergency Medicine; PCP Family Medicine
DX: T83.9XXA Unspecified complication of genitourinary prosthetic device, implant and graft, initial encounter (principal)
CPT/HCPCS: 51702; 99283

== ENCOUNTER 2021-02-28 12:29 | Emergency (ER) | payer MEDICARE, MEDICAID, SELFPAY ==
[2021-02-28 12:31] VITALS: BP 150/88; PULSE 95; RESP 17; TEMP 36.6; O2SAT 97; BMI 21.9
--- NOTE | 2021-02-28 12:45 | ED.VIS.GEN ---
History of Present Illness Chief Complaint: Bowman C/O Narrative: Patient has a history of hydrocephalus, lower extremity paralysis and weakness, myelodysplastic disorder with a history of urinary retention presents after he noticed that the Bowman has not been draining this morning. He has suprapubic pressure. This has happened in the past. He has no fever chills no difficulty with bowel movement. He has no flank pain. Past medical history: As above Medications: Reviewed Social history: Noncontributory Review of systems: All systems negative except as indicated General: NoFever Eyes: No visual changes ENT: No upper airway congestion, normal voice Neck: No neck pain Cardiovascular: No chest pain Respiratory: No shortness of breath or cough Gastrointestinal: Some suprapubic pain. No constipation diarrhea or vomiting Genitourinary: As in HPI Musculoskeletal: Chronic lower extremity weakness, some upper extremity weakness Skin: No rash Neurological: No new changes Psych: No recent behavioral changes Hematologic: No easy bleeding or easy bruising Physical exam General: Patient appears chronically ill he does not appear acutely ill Head: Normocephalic, Atraumatic Eyes: Conjunctiva not pale ENT: Moist mucous membranes Neck: Supple, Nontender, No lymphadenopathy Cardiovascular: Regular rate, Regular rhythm Respiratory: No distress, CTA bilaterally Abdomen: Soft, there is a suprapubic mass which is somewhat tender. : Normal external genitalia uncircumcised with a catheter that appears intact. Back: Nontender, Normal Inspection. Negative for: CVA tenderness Extremities: Significant atrophy of the lower extremities some atrophy of the upper extremities minimal movement of the lower extremities. No signs of injury Skin: Normal color, No rash Neurological: Upper and lower extremity weakness but no new deficit he is lucid coherent and oriented Psychological: Normal affect Past Medical History - Allergies and Home Meds Allergies/Adverse Reactions: Allergies Iodinated Contrast Media [Iodinated Contrast Media - IV Dye] Allergy (Verified 02/28/21 12:30) Anaphylaxis nitrofurantoin Adverse Reaction (Verified 02/28/21 12:30) Upset Stomach Primary Care Physician: Lyndon Sanders MD [Primary Care Provider] - Surgical History: noncontributory Smoking Status: Never smoker Physical Exam Vital Signs/Narrative: Vital Signs Temp Pulse Resp BP Pulse Ox 02/28/21 12:31 97.8 F 95 17 150/88 H 97 Diagnostic/Tx/Re-eval - Medical Decision Making Catheter was changed by the nurse, it is now free-flowing. I will culture the urine otherwise I will discharge him in stable condition. He appears well. ED Disposition - Plan for ED Patient: Disposition: Home or Assisted Living Diagnosis: Malfunction of Bowman catheter Instructions: ED Bowman Catheter, Care Prescriptions: Smz/Tmp Ds [Bactrim Ds] 1 tablet PO BID #14 tab Transmission Status: [id number] Referrals: Lyndon Sanders MD [Primary Care Provider] - 2 Days
--- NOTE | 2021-02-28 13:05 | ED.RN ---
catheter in place prior to arrival. irrigation unsuccessful. hannon replaced and urine is draining. ua culture sent off for analysis. angelita alexander rn [id number]
[2021-02-28 13:34] VITALS: BP 145/100; PULSE 83; RESP 18
== END 2021-02-28 13:37 | disposition home or self-care (01) ==
LOC: ED 13:02
PROVIDERS: Emergency Provider Emergency Medicine; PCP Family Medicine
DX: T83.091A Other mechanical complication of indwelling urethral catheter, initial encounter (principal)
CPT/HCPCS: 51702; 87077; 87086; 87088; 87186; 99283

== ENCOUNTER 2021-06-17 10:51 | Emergency (ER) | payer MEDICARE, MEDICAID, SELFPAY ==
[2021-06-17 10:51] VITALS: BP 156/102; PULSE 92; RESP 18; TEMP 36.8; O2SAT 100; BMI 21.4
--- NOTE | 2021-06-17 11:37 | EX.ED.GUMALE ---
HPI History of Present Illness Chief Complaint: Complaint Detail of Chief Complaint: Leaking around Bowman catheter Informant: patient and family Pain Onset: Yesterday Context: Gradual Onset Timing: Continuous Worsened by: Laying down Relieved by: Nothing Narrative Narrative: Patient presents with leaking around his Bowman catheter that began yesterday. Patient states he noted some leaking last evening. Patient states that when he laid down there was a large amount of leaking around his catheter. Patient states he gets some pressure in his lower abdomen and then notices some leaking. Patient has a chronic indwelling Bowman catheter. Patient denies any dysuria or hematuria. Patient admits to some mild lower abdominal pain. Patient denies any fevers or chills. Patient does admit to a slight cough. [facility] Medical History (Updated 06/17/21 @ 12:[address] Richard Dodd DO) Hydrocephalus Home Medications baclofen 5 mg PO TID 12/11/20 [History Last Taken 12/11/20] cephalexin 500 mg PO Q6 #40 capsule 06/17/21 [Rx Last Taken Unknown] Allergy/AdvReac Type Severity Reaction Status Date / Time Iodinated Contrast Media Allergy Anaphylaxis Verified 06/17/21 10:54 [Iodinated Contrast Media - IV Dye] nitrofurantoin AdvReac Upset Verified 06/17/21 10:54 Stomach Surgical History S/P [employer]ORE LEAD shunt Social History Smoking Status: Never smoker ROS ROS ED Constitutional Constitutional ED: Denies chills or fever(s) Eyes Eyes: Denies blurry vision or change in vision ENT ENT ED: Denies rhinorrhea or sore throat Cardiovascular Cardiovascular: Denies chest pain or palpitations Respiratory/Chest Respiratory/Chest: Reports cough; Denies dyspnea Gastrointestinal Gastrointestinal: Reports abdominal pain; Denies nausea or vomiting Genitourinary Genitourinary ED: Denies dysuria or hematuria Musculoskeletal Musculoskeletal: Denies back pain or neck pain Integumentary Denies abscess or rash Neurologic Neurologic: Denies headache(s) or weakness Allergic/Immunologic Allergic/Immunologic ED: Denies mouth swelling or urticaria EXAM Physical Exam Const Vital Signs: 06/17/21 10:51 06/17/21 12:10 Temperature 98.2 F 98.2 F Temperature Source Temporal Temporal Pulse Rate 92 92 Respiratory Rate 18 18 Blood Pressure 156/102 H 156/102 H Blood Pressure Mean 120 120 Pulse Ox 100 100 Oxygen Delivery Method Room Air Room Air Positive well nourished, well developed and unkempt General Appearance ED: unkempt and well developed HEENT Reports moist mucous membranes Neck supple and no JVD Resp normal respiratory effort and clear to auscultation bilaterally Cardio regular rate and regular rhythm GI non-tender and non-distended Auscultation: normoactive bowel sounds Palpation: soft Neuro oriented x3, CN's II-XII intact bilaterally and no sensory deficits noted Sensorium / Orientation: alert Psych mental status grossly normal Appearance: unkempt MDM MDM MDM Narrative Medical decision making narrative: The Bowman catheter was changed. Urinalysis was obtained. Leukocyte esterase was 500. There were 5-10 white blood cells and 2+ bacteria. 005 epithelial cells. There is 50-100 red blood cells. Urine culture was sent. Patient was given a prescription for Keflex. Patient states he has an appointment with his primary care physician coming up in the next 1 to 2 weeks. Patient was instructed to keep this appointment. Patient was instructed to return if worse in any way. Patient understood and was agreeable with the plan. All questions were answered. Lab Data Attestation: I reviewed the patient's lab results. Labs: Laboratory Results - last 24 hr 06/17/21 12:00 Urine Color Red Urine Clarity Sl. Cloudy Urine pH 8.0 Ur Specific [place] 1.010 Urine Protein 100 H Urine Glucose (UA) Normal Urine Ketones Negative Urine Occult Blood 250 H Urine Nitrite Negative Urine Bilirubin Negative Urine Urobilinogen Normal Ur Leukocyte Esterase 500 H Urine RBC 50-100 SEEN Urine WBC 5-10 SEEN Ur Squamous Epith Cells 0-5 SEEN Urine Bacteria 2+ Urine Mucus 0 SEEN Discharge Plan Triage Chief Complaint: Complaint ED Provider: Richard Dodd Dx/Rx/DC Orders Clinical Impression: Urinary tract infection, History of urinary retention Instructions: ED Bladder Infection, Male (Adult) Prescriptions: New cephalexin [cephalexin] 500 MG capsule 500 mg PO Q6 Qty: 40 RF: 0 No Action baclofen 5 MG tablet 5 mg PO TID RF: 0 Primary Care Provider: Lyndon Sanders Referrals: Lyndon Sanders MD [Primary Care Provider] - Keep Stiven appointment Disposition Disposition: Home, Self Care
[2021-06-17 12:07] LABS: Mucous, Urine 0 SEEN /hpf (<or=2+)
[2021-06-17 12:08] LABS: Color, Urine Red (Yellow); Glucose, Dipstick Normal (Normal); Ketone-Dipstick Negative (Negative); Leukocyte Esterase-Dipstick 500 /ul (Negative); Nitrite-Dipstick Negative (Negative); Occult Blood-Urine 250 /ul (Negative); Protein-Dipstick 100 mg/dl (Negative); Urine Bilirubin Dipstick Negative (Negative); Urine Clarity Sl. Cloudy (Clear); Urine Urobilinogen Normal (Normal)
[2021-06-17 12:10] VITALS: BP 156/102; PULSE 92; RESP 18; TEMP 36.8; O2SAT 100
[2021-06-17 12:13] LABS: Bacteria 2+ /hpf (None Seen); Red Blood Cells-Urine 50-100 SEEN /hpf (0-5); Squamous Epithelial Cells - UA 0-5 SEEN /hpf (0-5); White Blood Cells 5-10 SEEN /hpf (0-5)
[2021-06-17] MEDS: Cephalexin 500 MG Capsule PO (12:49)
[2021-06-17 12:52] VITALS: BP 142/73; PULSE 83; RESP 17; O2SAT 97
== END 2021-06-17 12:53 | disposition home or self-care (01) ==
PROVIDERS: Emergency Provider Emergency Medicine; PCP Family Medicine
DX: N39.0 Urinary tract infection, site not specified (principal)
CPT/HCPCS: 51702; 81001; 87077; 87086; 87088; 87186; 99284

== ENCOUNTER 2021-07-13 17:21 | Emergency (ER) | payer MEDICARE, MEDICAID, SELFPAY ==
[2021-07-13 17:22] VITALS: BP 139/89; PULSE 86; RESP 14; TEMP 36.7; O2SAT 96; BMI 21.4
--- NOTE | 2021-07-13 18:06 | EX.ED.GUMALE ---
HPI History of Present Illness Chief Complaint: Bowman C/O Informant: patient and family Pain Onset: Today Context: Gradual Onset Timing: Continuous Current Severity: Mild Maximum Severity: Mild Appearance Lesion(s): No Genital Edema: No Narrative Narrative: 55-year-old male history of hydrocephalus and chronic indwelling Bowman catheter. Today his Bowman catheter was not working. A family member that is a nurse that takes care of it typically tried to flush it was unable to get to work and remove the Bowman catheter. He is really not been able to urinate since. He needs a new Bowman catheter placed. He denies any fever or recent illness. The most recent Bowman catheter was placed 06/17/2021. He has been on recent antibiotics for UTI. 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 Social History Smoking Status: Never smoker ROS ROS ED ROS Narrative Denies Review of Systems ROS Unobtainable: Denies due to encephalopathy Constitutional Constitutional ED: Denies chills or fever(s) Eyes Eyes: Denies change in vision ENT ENT ED: Denies ear pain or sore throat Cardiovascular Cardiovascular: Denies chest pain Respiratory/Chest Respiratory/Chest: Denies cough or dyspnea Gastrointestinal Gastrointestinal: Denies abdominal pain, diarrhea, nausea or vomiting Genitourinary Genitourinary ED: Denies dysuria Musculoskeletal Musculoskeletal: Denies myalgias Integumentary Denies rash Neurologic Neurologic: Denies headache(s) Psychiatric Psychiatric: Denies depression Endocrine Endocrinology: Denies polyuria Hematologic/Lymphatic Hematologic/Lymphatic: Denies easy bruising Allergic/Immunologic Allergic/Immunologic ED: Denies urticaria EXAM Physical Exam Narrative Exam Narrative: Middle-age male no acute distress. Vital signs stable afebrile. H EENT exam unremarkable. Neck nontender no lymphadenopathy. Lungs clear to auscultation bilaterally. Heart regular rhythm no murmur. Abdomen soft nondistended. Normal bowel sounds no peritoneal signs. External exam circumcised penis. Unremarkable otherwise. Moving all 4 extremities. Weak in the lower extremities which is chronic. No edema. Const Vital Signs: 07/13/21 17:22 Temperature 98.1 F Temperature Source Temporal Pulse Rate 86 Respiratory Rate 14 Blood Pressure 139/89 H Blood Pressure Mean 105 Pulse Ox 96 Oxygen Delivery Method Room Air Positive well nourished and well developed General Appearance ED: well developed and NAD HEENT Reports moist mucous membranes normocephalic and atraumatic; Negative for tenderness Eyes PERRL and EOMs intact bilaterally Neck no lymphadenopathy, supple and no JVD General: Negative for tenderness Resp normal respiratory effort and clear to auscultation bilaterally Auscultation: Negative for rales, rhonchi or wheezes Cardio regular rate, regular rhythm, S1 normal heart sound, S2 normal heart sound and no murmurs GI non-tender, non-distended and no masses Auscultation: normoactive bowel sounds; Negative for hyperactive bowel sounds or hypoactive bowel sounds Palpation: soft Rectal Exam: tenderness no CVA tenderness Bladder / Kidney Exam: No CVA tenderness Penis: normal penis and circumcised Back/Spine no CVA tenderness Extremity Extremity Narrative: Weakness both lower extremities which is chronic. Atrophy. Neuro Sensorium / Orientation: alert, oriented to person and oriented to place Motor Exam: strength abnormal Psych mental status grossly normal Skin Lesions: no lesions Rashes: no rashes MDM MDM MDM Narrative Medical decision making narrative: 55-year-old male with hydrocephalus chronic indwelling Bowman catheter. Bowman catheter is obstructed today family took it out at home. He needs it replaced. Urinalysis also being obtained. Lab Data Attestation: I reviewed the patient's lab results. Lab results narrative: Urine by catheter is positive for UTI with greater than 100 white cells 0-5 epithelial cells 2+ bacteria and positive nitrates. Culture will be sent. He will be started on does not Keflex 4 times daily for 10 days. Follow-up with his primary. Labs: Laboratory Results - last 24 hr 07/13/21 18:40 Urine Color Yellow Urine Clarity Cloudy Urine pH 7.0 Ur Specific [place] 1.005 Urine Protein 15 H Urine Glucose (UA) Normal Urine Ketones Negative Urine Occult Blood 50 H Urine Nitrite Positive H Urine Bilirubin Negative Urine Urobilinogen Normal Ur Leukocyte Esterase 500 H Urine RBC 5-10 SEEN Urine WBC >100 SEEN Ur Squamous Epith Cells 0-5 SEEN Amorphous Sediment 2+ PHOS Urine Bacteria 2+ Urine Mucus 0 SEEN Discharge Plan Triage Chief Complaint: Bowman C/O ED Provider: Mark Thomas Dx/Rx/DC Orders Clinical Impression: Urinary tract infection, History of urinary retention Instructions: Urinary Tract Infections in Men, ED Bowman Catheter, Care Prescriptions: New cephalexin 500 mg capsule 500 mg PO Q6H 10 Days Qty: 40 RF: 0 No Action baclofen 5 MG tablet 5 mg PO TID RF: 0 cephalexin [cephalexin] 500 MG capsule 500 mg PO Q6 Qty: 40 RF: 0 Primary Care Provider: Lyndon Sanders Referrals: Lyndon Sanders MD [Primary Care Provider] - 1 Week Activity Restrictions/Additional Instructions: Urinary tract infection. Urine culture was sent. You will be started on antibiotic Keflex 4 times a day for 10 days. Call [id number] with your primary care physician. Disposition Disposition: Home, Self Care
[2021-07-13 18:46] LABS: Mucous, Urine 0 SEEN /hpf (<or=2+)
[2021-07-13 18:54] LABS: Color, Urine Yellow (Yellow); Glucose, Dipstick Normal (Normal); Ketone-Dipstick Negative (Negative); Leukocyte Esterase-Dipstick 500 /ul (Negative); Nitrite-Dipstick Positive (Negative); Occult Blood-Urine 50 /ul (Negative); Protein-Dipstick 15 mg/dl (Negative); Specific Gravity, Urine 1.005 (1.002-1.030); Urine Bilirubin Dipstick Negative (Negative); Urine Clarity Cloudy (Clear); Urine Urobilinogen Normal (Normal)
[2021-07-13 19:31] LABS: Amorphous Sediment 2+ PHOS; Bacteria 2+ /hpf (None Seen); Red Blood Cells-Urine 5-10 SEEN /hpf (0-5); Squamous Epithelial Cells - UA 0-5 SEEN /hpf (0-5); White Blood Cells >100 SEEN /hpf (0-5)
[2021-07-13] MEDS: Cephalexin 250 MG Capsule 500 MG PO (20:34)
== END 2021-07-13 20:36 | disposition home or self-care (01) ==
PROVIDERS: Emergency Provider Emergency Medicine; PCP Family Medicine
DX: N39.0 Urinary tract infection, site not specified (principal)
CPT/HCPCS: 51702; 81001; 87077; 87086; 87088; 87186; 99284

== ENCOUNTER 2021-07-31 14:56 | Inpatient (IN) | payer MEDICARE, MEDICAID, SELFPAY ==
[2021-07-31 14:57] VITALS: BP 153/100; PULSE 107; RESP 17; TEMP 37.4; O2SAT 95; BMI 23.6
--- NOTE | 2021-07-31 15:13 | CT_ITS ---
STUDY: CT ABDOMEN AND PELVIS WITHOUT CONTRAST REASON FOR EXAM: Male, 55 years old. Pain. RADIATION DOSAGE (If Supplied By Facility): CTDIvol = ( 10.42 ) mGy, DLP = ( 573.00 ) mGycm TECHNIQUE: Transaxial images were obtained from the dome of the diaphragm to the symphysis pubis without oral contrast, and without intravenous contrast. Sagittal and coronal images were reconstructed. Individualized dose optimization techniques were used for this CT. COMPARISON: 12/11/2020. FINDINGS: The visualized lung bases are unremarkable. The visualized portions of the heart are within normal limits. Normal liver. Normal gallbladder and extrahepatic biliary system. Normal spleen. Normal pancreas. Normal bilateral adrenal glands. Normal right kidney. There is a 4 mm calcification in the mid calyx of left kidney. There is an exophytic 1.7 cm cyst off the lower pole. There is no abnormality of the visualized ureters. Fluid distention of the proximal stomach. There is abrupt narrowing and wall thickening of the antrum. There is no obstruction. There is distended proximal small bowel lobes containing air-fluid levels. There is no visualized transition point although the distal ileum appears to be normal in diameter. Air and feces are seen within the proximal colon. There is nondistention of the descending and rectosigmoid colon without mass or obstruction. There is a right-sided CASING INSPECTOR shunt catheter which enters the mid abdomen and extends into the left midabdomen and pelvis. The appendix is visualized and appears normal. Normal abdominal aorta. Normal inferior vena cava. Normal retroperitoneum. Urinary bladder is collapsed about a SILVA catheter. There are calcifications within the right lumen as well as within the lumen of the collapsed right bladder diverticulum seen on the earlier exam. The prostate remains enlarged. No pelvic lymphadenopathy. No free air or free fluid is seen within the peritoneal cavity. Bilateral inguinal hernias of omental fat. Anterior portions of bladder extend outward into the orifices of both hernias. There are degenerative changes of the lumbar spine. There is marked deformity of the left hip secondary to superior dislocation and formation of a pseudoarticulation. This is a stable finding. CT/Abdomen/Pelvis without Cont IMPRESSION: 1. Distended stomach and proximal small bowel. This appears more extensive than on the previous study. The transition point is not well visualized. 2. Luminal narrowing and wall thickening of the gastric antrum. The possibility of gastritis or mass cannot be entirely ruled out on the present study. No abnormality is seen on the prior study this may simply be due to compression by the adjacent distended small bowel loops. 3. SILVA catheter. Bladder calculi are seen both within the bladder lumen and the collateral right sided diverticulum. 4. No other major interval change. Electronically Signed: Oleg Berry DO at 16:37 EDT Tel [phone], Service support ,
--- NOTE | 2021-07-31 15:14 | EDS_ITS ---
HPI HPI - GI History of Present Illness Chief Complaint: Abd Pain Narrative Narrative: History and physical is limited secondary to hydrocephalus. Majority of the history does come from the patient's sister. She presents him because she states he recently got over a urinary tract infection. He has a chronic indwelling Silva catheter because part of his bladder is enclosed in a hernia. She states that last evening she was told that the patient had nausea and vomiting, and thinks that he is dehydrated because he has low urine output. He only had 200 cc over 8 hours. His urinary catheter bag was last emptied an hour and 15 minutes ago. She states that he has vomited 3 times without any blood in his emesis since 2:00 today. She is concerned about his low urine output. Additionally, he has problems with constipation. Although she has given him a r ectal suppository, he only had a small bowel movement. She feels he may be constipated. While she denies that he has had any surgical history that involves the abdomen, she is concerned about blockage. He has not had any fevers or chills. No other symptoms. He describes some abdominal pressure, mainly in his left lower quadrant. His nausea has resolved currently. [facility] Medical History Hydrocephalus Home Medications baclofen 5 mg PO TID 12/11/20 [History Last Taken 12/11/20] linaclotide [Linzess] 72 mcg PO QHS 07/31/21 [History Last Taken Unknown] Allergy/AdvReac Type Severity Reaction Status Date / Time Iodinated Contrast Media Allergy Anaphylaxis Verified 07/31/21 14:56 [Iodinated Contrast Media - IV Dye] nitrofurantoin AdvReac Upset Verified 07/31/21 14:56 Stomach Surgical History S/P SUSTAINABILITY OFFICER shunt Social History Smoking Status: Never smoker ROS ROS ED ROS Narrative Review of systems limited secondary to hydrocephalus constitutional: No fever, no chills. HEENT: No sore throat. No neck pain. No loss of vision. No rhinorrhea. Cardiovascular: No chest pain. No palpitations. No pedal edema. Respiratory: No cough, no shortness of breath. Abdominal: Diffuse to left lower quadrant abdominal pain. Positive nausea. Positive vomiting. No hematemesis. Positive constipation (chronic) Genitourinary: No dysuria. No hematuria. Musculoskeletal: No myalgias. No arthralgias. Neurologic: No headaches. No dizziness. No lightheadedness. Skin: No rash. No change in color. Psychiatric: No depression. No anxiety. EXAM Physical Exam Narrative Exam Narrative: Afebrile. Vital signs noted. HEENT: Normocephalic. Atraumatic. PERRL, EOMI. Neck soft and supple. No point tenderness or step off. Cardiovascular: Regular rate and rhythm with intermittent tachycardia. No murmurs, rubs, or gallops appreciated. Respiratory: No tachypnea. Lungs clear to auscultation bilaterally. Gastrointestinal: Abdomen soft, mild tenderness left lower quadrant, with normoactive bowel sounds. No rebound or guarding. Noted indwelling Silva catheter with small amount of yellow to dark yellow urine and collection bag. Neurological: Awake. Alert. Nonfocal, nonlateralizing. Skin: No rash. Normal color. No pallor. Musculoskeletal: No pedal edema. Bilateral lower extremities in braces.. Const Vital Signs: 07/31/21 14:57 07/31/21 17:04 07/31/21 19:16 Temperature 99.4 F H Temperature Source Temporal Pulse Rate 107 H 91 Respiratory Rate 17 16 Blood Pressure 153/100 H 148/81 H 172/106 H Blood Pressure Mean 117 103 128 Pulse Ox 95 98 96 Oxygen Delivery Method Room Air Room Air Room Air 07/31/21 21:31 Temperature Temperature Source Pulse Rate Respiratory Rate Blood Pressure 157/109 H Blood Pressure Mean 125 Pulse Ox Oxygen Delivery Method MDM MDM MDM Narrative Medical decision making narrative: Comprehensive work-up was pursued. He will be bolused normal saline 1 L intravenously. I will check a CBC, CMP, and lipase for his vomiting. I will obtain a CT of the abdomen and pelvis without contrast secondary to his IV contrast allergy. He has a slightly elevated white count of 12.7, but this may be demargination from any nausea and vomiting. Hemoglobin stable at 15.1. Sodium low at 123, but according to his sister he has chronic hyponatremia. Glucose appropriately elevated at 133. I obtained a CT of the abdomen and pelvis without contrast that showed a distended stomach and proximal small bowel. This appears more extensive than on the previous study. The transition point is not well visualized. There is luminal narrowing and wall thickening of the gastric antrum. This is seen in the possibility of gastritis or mass, but there is no abnormality seen on the prior study and may be simply due to compression by the adjacent distended small bowel loops. No other interval change. The patient experienced more nausea and vomiting. He was administered Zofran. NG was placed. Initially, I discussed the patient with the hospitalist who wanted general surgery consulted because of the results of the CAT scan and possibility of mass. CT scan was reviewed by Dr. Lopez and discussed with him. He states that he prefers that the patient be transferred. In discussion with his sister, they would like him transferred to [facility]. I discussed the patient with general surgery, Dr. Garner, who reviewed the patient's prior records from their facility. He does have chronic hyponatremia, and this is most likely a chronic problem with his gastric motility. However, he has accepted him in transfer. Patient will be transferred and is currently awaiting a bed. He is in stable condition. Lab Data Attestation: I reviewed the patient's lab results. Labs: Laboratory Results - last 24 hr 07/31/21 07/31/21 15:55 15:55 WBC 12.7 H RBC 5.09 Hgb 15.1 Hct 43.4 MCV 85.3 MCH 29.7 MCHC 34.8 RDW Std Deviation 38.8 RDW Coeff of Frieda 12.6 Plt Count 461 H MPV 10.0 Immature Gran % (Auto) 0.300 Neut % (Auto) 82.4 H Lymph % (Auto) 7.6 L [place] % (Auto) 9.5 Eos % (Auto) 0.0 Baso % (Auto) 0.2 Absolute Neuts (auto) 10.5 H Absolute Lymphs (auto) 0.96 Nucleated RBC % 0 Sodium 123 L Potassium 3.8 Chloride 86 L Carbon Dioxide 27.0 Anion Gap 10 BUN 15 Creatinine 0.78 Estim Creat Clear Calc 81.02 Est GFR (MDRD) Af Amer 134 Est GFR (MDRD) Non-Af 111 BUN/Creatinine Ratio 19.3 Glucose 133 H Calcium 9.2 Total Bilirubin 0.80 AST 11 L ALT 24 Alkaline Phosphatase 70 Total Protein 8.0 Albumin 3.4 Globulin 4.6 H Albumin/Globulin Ratio 0.7 L Lipase 35 L Radiography Diagnostic Testing: Radiology Impression Abdomen/Pelvis CT 07/31/21 15:13 IMPRESSION: 1. Distended stomach and proximal small bowel. This appears more extensive than on the previous study. The transition point is not well visualized. 2. Luminal narrowing and wall thickening of the gastric antrum. The possibility of gastritis or mass cannot be entirely ruled out on the present study. No abnormality is seen on the prior study this may simply be due to compression by the adjacent distended small bowel loops. 3. SILVA catheter. Bladder calculi are seen both within the bladder lumen and the collateral right sided diverticulum. 4. No other major interval change. Electronically Signed: Oleg Berry DO at 16:37 EDT Tel [phone], Service support , KUB X-Ray 07/31/21 20:22 IMPRESSION: 1. NG tube as described. 2. Ileus versus early or incomplete small bowel obstruction. Electronically Signed: Oleg Berry DO at 21:48 EDT Tel [phone], Service support , Discharge Plan Triage Chief Complaint: Abd Pain ED Provider: Josiah Schaffer Dx/Rx/DC Orders Prescriptions: No Action baclofen 5 MG tablet 5 mg PO TID RF: 0 Linzess 72 mcg capsule 72 mcg PO QHS RF: 0 Primary Care Provider: Lyndon Sanders Referrals: Lyndon Sanders MD [Primary Care Provider] - Disposition Disposition: Acute Care Hospital Discharge Location: [facility]
[2021-07-31] MEDS: 0.9% Normal Saline 1,000 ML 1000 ML IV (15:52)
[2021-07-31 16:12] LABS: Absolute Lymphocyte Count 0.96 X10^3/uL (0.83-4.51); Absolute Neutrophil Count 10.5 X10^3/uL (2.0-7.7); Basophil# 0.02 X10^3/uL; Basophil% 0.2 % (0-1); Hematocrit 43.4 % (40-54); Hemoglobin 15.1 g/dL (13.0-16.5); Lymphocyte # 0.96 X10^3/ul (0.83-4.51); Lymphocyte % 7.6 % (19-41); Mean Corp Hgb Conc 34.8 g/dL (32-36); Mean Corpuscular Hgb 29.7 pg (27.0-32.0); Mean Corpuscular Volume 85.3 fL (80-94); Monocyte% 9.5 % (0-10); NRBC Flagged by Analyzer 0 % (0-5); Neutrophil # 10.46 X10^3/uL (2.7-7.7); Neutrophil % 82.4 % (47-70); Platelet Count 461 K/mm3 (150-450); RBC Distribution Width CV 12.6 % (11.6-14.6); RBC Distribution Width SD 38.8 fl (35.1-43.9); Red Blood Count 5.09 M/mm3 (4.6-6.2); White Blood Count 12.7 K/mm3 (4.4-11.0)
[2021-07-31 16:26] LABS: ALB/GLOB Ratio 0.7 RATIO (0.9-2.4); AST(SGOT) 11 U/L (15-37); Alanine Aminotransfer ALT/SGPT 24 U/L (16-61); Albumin, Serum 3.4 g/dL (3.2-5.0); Alkaline Phosphatase 70 U/L (45-117); Anion Gap 10 (5-15); BUN 15 mg/dL (7-18); BUN/Creat Ratio 19.3 RATIO (10-20); Calcium,Total 9.2 mg/dL (8.5-10.1); Chloride 86 mmol/L (98-107); Creatinine, Serum 0.78 mg/dL (0.70-1.30); EST Glomerular Filtration Rate 111 mL/min (>60); Est Glom Filt Rate - Afr Amer 134 mL/min (>60); Estimated Creatinine Clearance 81.02 ml/min; Globulin 4.6 g/dL (2.2-4.2); Glucose 133 mg/dL (74-106); Lipase 35 U/L (73-393); Potassium 3.8 mmol/L (3.5-5.1); Sodium Level 123 mmol/L (136-145)
[2021-07-31] MEDS: Ondansetron 4 MG/2 ML Vial IV (16:30)
[2021-07-31 17:04] VITALS: BP 148/81; O2SAT 98
[2021-07-31] MEDS: 0.9% Normal Saline 1,000 ML 250 ML IV (18:09)
[2021-07-31] MEDS: Famotidine 200 MG/20 ML MDV 20 MG in 0.9% Normal Saline (Pres. free 8 ML 300 MG IV (18:09)
[2021-07-31 19:16] VITALS: BP 172/106; PULSE 91; RESP 16; O2SAT 96
--- NOTE | 2021-07-31 20:22 | RAD_ITS ---
STUDY: X-RAY - ABDOMEN/PELVIS REASON FOR EXAM: Male, 55 years old. NG tube insertion. Abdominal pain and nausea vomiting beginning last night. TECHNIQUE: Single AP view of the chest and upper abdomen COMPARISON: None. FINDINGS: Lungs are clear. The heart is normal in size. There is an NG tube with its tip in the region of the gastric fundus. There is dilated small bowel loops in this upper abdomen. Air is seen in distended colon beneath the diaphragms. There is no demonstrated free abdominal air. The visualized liver, spleen and kidneys are grossly normal in size and morphology. There is a right-sided REGISTERED NURSE CARDIAC TELEMETRY shunt catheter. Normal visualized osseous structures. RAD/Abdomen Single View (Portable) IMPRESSION: 1. NG tube as described. 2. Ileus versus early or incomplete small bowel obstruction. Electronically Signed: Oleg Berry DO at 21:48 EDT Tel [phone], Service support ,
[2021-07-31 21:31] VITALS: BP 157/109
--- NOTE | 2021-07-31 22:53 | ED.RN ---
PATIENT IS ACCEPTED AT [facility], WE DO NOT HAVE A BED ASSIGNMENT AT THIS TIME.
[2021-07-31 23:23] VITALS: BP 150/82; PULSE 74; RESP 18; O2SAT 98
[2021-07-31 23:24] VITALS: BP 150/82; PULSE 74; RESP 18; TEMP 36.9; O2SAT 98
[2021-08-01] VITALS (7 sets, daily range): BP systolic 141–162; BP diastolic 86–102; PULSE 90–98; RESP 14–18; TEMP 36.1–37.2; O2SAT 96–99; BMI 20.9
--- NOTE | 2021-08-01 02:43 | HP.PCM.HOS_ITS ---
HPI - General General Date of Admission: 08/01/21 HPI Narrative JIAN ALTAMIRANO, is a 55 M with a significant history of hydrocephalus status post MACHINE TOOL DRESSER shunts who presents with nausea and vomiting that started about 24 hours prior to presentation. Associated with his symptom is constipation. Patient received a suppository and water enema that helped his bowels to move. Patient has a chronic indwelling Silva catheter. Family noticed that the urine output in his chronic indwelling Silva has reduced. Emergency department doctor discussed the case with general surgery who request ed the patient be transferred to tertiary institution because of patient's complex medical history. Of note patient follows up with a GI doctor at [facility]. Reportedly patient has been accepted to [facility]. However because he stayed at the emergent department for more than 6 hours a decision was made to admit patient at our hospital until a bed becomes available at [facility]. [facility] Medical History Hydrocephalus Home Medications baclofen 5 mg PO TID 12/11/20 [History Last Taken 12/11/20] linaclotide [Linzess] 72 mcg PO QHS 07/31/21 [History Last Taken Unknown] Allergy/AdvReac Type Severity Reaction Status Date / Time Iodinated Contrast Media Allergy Anaphylaxis Verified 07/31/21 14:56 [Iodinated Contrast Media - IV Dye] nitrofurantoin AdvReac Upset Verified 07/31/21 14:56 Stomach Family History Other Cancer Heart disease Peptic ulcer disease Surgical History S/P MACHINE TOOL DRESSER shunt Social History Smoking Status: Never smoker ROS ROS Narrative Constitutional: Denies fever, chills or change in weight Eyes: Denies blurry vision, change in eye color, change in vision, discharge from eye(s), double vision, erythema, eye pain, loss of vision or other HEENT: Denies abnormal hearing, dysphagia, ear pain, epistaxis, headache(s), hearing loss, nasal congestion, nasal discharge, post nasal drip, sinus pressure, sore throat or other Cardiovascular: Denies chest pain or palpitations. Denies dyspnea on exertion, orthopnea and paroxysmal nocturnal dyspnea Respiratory/Chest: Denies cough, excessive phlegm production, shortness of breath with exertion and wheezing Gastrointestinal: Reports nausea, vomiting and constipation. Denies abdominal pain, hematemesis, hematochezia, or other Genitourinary: With chronic Silva catheter. Decreased urine output. Musculoskeletal: Denies arthralgias, back pain, joint pain, joint stiffness, joint swelling, myalgias, neck pain or other Neurologic: Walks with assistance. . Denies seizure-like activity, seizures, syncope, tingling, tremor(s) or other Psychiatric: Denies anxiety, depression, homicidal ideation, suicidal ideation or other Endocrinology: Denies change in body appearance, cold intolerance, excessive sweating, heat intolerance, polydipsia, polyuria or other Hematologic/Lymphatic: Denies anemia, easy bleeding, easy bruising, lymphadenopathy or other Integumentary: Denies rashes Allergic/Immunologic: Denies rhinitis, hives, eczema, asthma or other Vital Signs Vital Signs Vital Signs: 07/31/21 14:57 07/31/21 17:04 07/31/21 19:16 Temperature 99.4 F H Temperature Source Temporal Pulse Rate 107 H 91 Respiratory Rate 17 16 Blood Pressure 153/100 H 148/81 H 172/106 H Blood Pressure Mean 117 103 128 Pulse Ox 95 98 96 Oxygen Delivery Method Room Air Room Air Room Air 07/31/21 21:31 07/31/21 23:23 07/31/21 23:24 Temperature 98.5 F Temperature Source Pulse Rate 74 74 Respiratory Rate 18 18 Blood Pressure 157/109 H 150/82 H 150/82 H Blood Pressure Mean 125 104 104 Pulse Ox 98 98 Oxygen Delivery Method Room Air Weight Weight: 56.699 kg Body Mass Index (BMI) 23.6 Physical Exam Narrative Physical exam: General: Well-nourished, well-developed. Head: Normocephalic, atraumatic, no tenderness Eyes: PERRLA, EOMI ENT, no trauma, moist mucous membranes, no rhinorrhea Neck: Nontender, full range of motion, no spinal tenderness, deformities, step- off CVS: Regular rate and rhythm. S1-S2 present. No murmur, gallop or rub. Respiratory : clear to auscultation bilaterally, chest wall nontender, no wheezing Abdomen: NG tube in place. Soft, nontender, nondistended, normal bowel sounds, no masses : Silva catheter in place Back: Nontender, no CVA tenderness, no midline spinal tenderness, deformities, step-offs Extremities: Unable to move bilateral legs. Decreased strength in bilateral upper extremity; left worse on the right. Skin: Normal color, no trauma, abrasions Neuro: Alert, oriented, cranial nerves II through XII grossly intact. Psychiatry: Normal mood. Normal affect. Not depressed. Not anxious. Results Lab / Micro Data Result Diagrams: 07/31/21 15:55 07/31/21 15:55 Labs: Laboratory Results - last 24 hr 07/31/21 15:55: WBC 12.7 H, RBC 5.09, Hgb 15.1, Hct 43.4, MCV 85.3, MCH 29.7, MCHC 34.8, RDW Std Deviation 38.8, RDW Coeff of Frieda 12.6, Plt Count 461 H, MPV 10.0, Immature Gran % (Auto) 0.300, Neut % (Auto) 82.4 H, Lymph % (Auto) 7.6 L, [place] % (Auto) 9.5, Eos % (Auto) 0.0, Baso % (Auto) 0.2, Absolute Neuts (auto) 10.5 H, Absolute Lymphs (auto) 0.96, Nucleated RBC % 0 07/31/21 15:55: Sodium 123 L, Potassium 3.8, Chloride 86 L, Carbon Dioxide 27.0, Anion Gap 10, BUN 15, Creatinine 0.78, Estim Creat Clear Calc 81.02, Est GFR (MDRD) Af Amer 134, Est GFR (MDRD) Non-Af 111, BUN/Creatinine Ratio 19.3, Glucose 133 H, Calcium 9.2, Total Bilirubin 0.80, AST 11 L, ALT 24, Alkaline Phosphatase 70, Total Protein 8.0, Albumin 3.4, Globulin 4.6 H, Albumin/Globulin Ratio 0.7 L, Lipase 35 L Micro: Microbiology 07/31/21 18:10 Nasal Secretion SARS-CoV-2 Antigen (Rapid) - Final Radiology Impression Abdomen/Pelvis CT 07/31/21 15:13 IMPRESSION: 1. Distended stomach and proximal small bowel. This appears more extensive than on the previous study. The transition point is not well visualized. 2. Luminal narrowing and wall thickening of the gastric antrum. The possibility of gastritis or mass cannot be entirely ruled out on the present study. No abnormality is seen on the prior study this may simply be due to compression by the adjacent distended small bowel loops. 3. SILVA catheter. Bladder calculi are seen both within the bladder lumen and the collateral right sided diverticulum. 4. No other major interval change. Electronically Signed: Oleg Berry DO at 16:37 EDT Tel [phone], Service support , KUB X-Ray 07/31/21 20:22 IMPRESSION: 1. NG tube as described. 2. Ileus versus early or incomplete small bowel obstruction. Electronically Signed: Oleg Berry DO at 21:48 EDT Tel [phone], Service support , Assessment & Plan Assessment/Plan (1) Constipation: QUALIFIERS: Constipation type: unspecified constipation type Qualified Code(s): K59.00 - Constipation, unspecified (2) Nausea & vomiting: QUALIFIERS: Vomiting Intractability: intractable Vomiting type: unspecified Qualified Code(s): R11.2 - Nausea with vomiting, unspecified PLAN: Nausea, vomiting and constipation Impression of abdomen and pelvis CT by radiologist as above. I agree with the radiologist interpretation. Received normal saline bolus at emergency department and started on maintenance infusion. Maintenance normal saline infusion continued. NG tube was placed at the emergency department. Trend CBC and BMP. Patient has been accepted to [facility] awaiting bed. Decreased urinary volume/hyponatremia/thrombocytosis Review of medical department labs showed sodium of 123; chloride of 86; and platelet of 461. Likely secondary to hypovolemia. IV fluids as above. Trend BMP. Trend CBC Muscle spasms On home baclofen. Held secondary to n.p.o. status Chronic constipation Linzess held secondary to n.p.o. status DVT prophylaxis: SCD ordered.
--- NOTE | 2021-08-01 02:59 | ED.RN ---
PT TO BE ADMITTED TO [facility] UNTIL TRANSFER BED AVAILABLE TO [facility]
--- NOTE | 2021-08-01 04:08 | PCS.PANDOC ---
PANDEMIC DOCUMENTATION INITIATED: Date: 08/01/21 Time: 8500
[2021-08-01] MEDS: 0.9% Normal Saline 1,000 ML 75 ML IV ×2 (04:32→16:58)
[2021-08-01 07:13] LABS: Absolute Lymphocyte Count 1.16 X10^3/uL (0.83-4.51); Absolute Neutrophil Count 7.5 X10^3/uL (2.0-7.7); Basophil# 0.03 X10^3/uL; Basophil% 0.3 % (0-1); Eosinophil# 0.04 X10^3/uL; Eosinophils% 0.4 % (0-5); Hematocrit 37.7 % (40-54); Hemoglobin 12.6 g/dL (13.0-16.5); Lymphocyte # 1.16 X10^3/ul (0.83-4.51); Lymphocyte % 11.1 % (19-41); Mean Corp Hgb Conc 33.4 g/dL (32-36); Mean Corpuscular Hgb 29.2 pg (27.0-32.0); Mean Corpuscular Volume 87.3 fL (80-94); Mean Platelet Vol. 9.6 fl (6.2-12.0); Monocyte# 1.72 X10^3/uL; Monocyte% 16.4 % (0-10); NRBC Flagged by Analyzer 0 % (0-5); Neutrophil # 7.49 X10^3/uL (2.7-7.7); Neutrophil % 71.5 % (47-70); POSITIVE DIFFERENTIAL YES; Platelet Count 358 K/mm3 (150-450); RBC Distribution Width CV 12.7 % (11.6-14.6); RBC Distribution Width SD 40.4 fl (35.1-43.9); Red Blood Count 4.32 M/mm3 (4.6-6.2); White Blood Count 10.5 K/mm3 (4.4-11.0)
[2021-08-01 07:20] LABS: Differential Indicated SCAN CRITERIA MET
[2021-08-01 07:42] LABS: Anion Gap 4 (5-15); BUN 8 mg/dL (7-18); BUN/Creat Ratio 10.7 RATIO (10-20); Calcium,Total 8.1 mg/dL (8.5-10.1); Chloride 98 mmol/L (98-107); Creatinine, Serum 0.75 mg/dL (0.70-1.30); EST Glomerular Filtration Rate 115 mL/min (>60); Est Glom Filt Rate - Afr Amer 140 mL/min (>60); Estimated Creatinine Clearance 94.71 ml/min; Glucose 108 mg/dL (74-106); Potassium 3.6 mmol/L (3.5-5.1); Sodium Level 131 mmol/L (136-145)
[2021-08-01 07:45] LABS: Differential Comment SCANNED
--- NOTE | 2021-08-01 13:20 | CASEMGMT ---
RN ANGELITO Face to Face with patient for initial transition planning/care coordination assessment. RN CM introduced self and role at [facility]. Patient lying in bed, alert and oriented. Patient willing to participate in assessment and is able to answer all questions appropriately. Care providers, pharmacy, and demographics verified. Patient wishes to discharge home, denies need for home health at this time. Patient states he has no further needs or concerns at this time. CM to follow for discharge planning needs that may arise. PCP: Tommy Specialists: Luis Alberto urologist Preferred Pharmacy: [facility] Insurance: Olinda Garcia Prescription Benefit: yes Living Will/HPOA: none LNOK: sisters Living Arrangements: Patient lives with sister that has camper on property. Sisters provide care for patient and preform ADLs. Patient lives in a 2 story home with bed and bath on first floor and ramp to enter the home. Transportation: sisters DME/HHC: Patient states he has shower chair, BSC, raised toilet, cane, grab bars, and wheelchair at home. Patient denies previous HHC or SNF. Disposition Plan: Patient to discharge home with family support and follow-up plans in place. Anita FIELDS, RN, CM
--- NOTE | 2021-08-01 16:10 | PCM.PN.HOSP ---
Subjective Subjective Abdomen feeling better. Objective Data Objective Data Vital Signs: Vital Signs Temp Pulse Resp BP Pulse Ox 36.7 C 95 16 146/102 H 97 08/01/21 12:16 08/01/21 12:16 08/01/21 12:16 08/01/21 12:16 08/01/21 12:16 Oxygen Delivery Method Room Air Weight: 58.786 kg Body Mass Index (BMI) 20.9 Intake & Output: Intake and Output for Last 24 Hours 07/30/21 07/31/21 08/01/21 23:59 23:59 23:59 Intake Total 1010 / 1010 1000 / 1000 Output Total 1675 / 1675 Balance 1010 / 1010 -675 / -675 Lab / Micro Data Result Diagrams: 08/01/21 07:00 08/01/21 07:00 Labs: Laboratory Results - last 24 hr 07/31/21 15:55: WBC 12.7 H, RBC 5.09, Hgb 15.1, Hct 43.4, MCV 85.3, MCH 29.7, MCHC 34.8, RDW Std Deviation 38.8, RDW Coeff of Frieda 12.6, Plt Count 461 H, MPV 10.0, Immature Gran % (Auto) 0.300, Neut % (Auto) 82.4 H, Lymph % (Auto) 7.6 L, [place] % (Auto) 9.5, Eos % (Auto) 0.0, Baso % (Auto) 0.2, Absolute Neuts (auto) 10.5 H, Absolute Lymphs (auto) 0.96, Nucleated RBC % 0 07/31/21 15:55: Sodium 123 L, Potassium 3.8, Chloride 86 L, Carbon Dioxide 27.0, Anion Gap 10, BUN 15, Creatinine 0.78, Estim Creat Clear Calc 81.02, Est GFR (MDRD) Af Amer 134, Est GFR (MDRD) Non-Af 111, BUN/Creatinine Ratio 19.3, Glucose 133 H, Calcium 9.2, Total Bilirubin 0.80, AST 11 L, ALT 24, Alkaline Phosphatase 70, Total Protein 8.0, Albumin 3.4, Globulin 4.6 H, Albumin/Globulin Ratio 0.7 L, Lipase 35 L 08/01/21 07:00: Sodium 131 L, Potassium 3.6, Chloride 98, Carbon Dioxide 29.0, Anion Gap 4 L, BUN 8, Creatinine 0.75, Estim Creat Clear Calc 94.71, Est GFR (MDRD) Af Amer 140, Est GFR (MDRD) Non-Af 115, BUN/Creatinine Ratio 10.7, Glucose 108 H, Calcium 8.1 L 08/01/21 07:00: WBC 10.5, RBC 4.32 L, Hgb 12.6 L, Hct 37.7 L, MCV 87.3, MCH 29.2, MCHC 33.4, RDW Std Deviation 40.4, RDW Coeff of Frieda 12.7, Plt Count 358, MPV 9.6, Immature Gran % (Auto) 0.300, Neut % (Auto) 71.5 H, Lymph % (Auto) 11.1 L, [place] % (Auto) 16.4 H, Eos % (Auto) 0.4, Baso % (Auto) 0.3, Absolute Neuts (auto) 7.5, Absolute Lymphs (auto) 1.16, Nucleated RBC % 0, Differential Comment SCANNED Micro: Microbiology 07/31/21 18:10 Nasal Secretion SARS-CoV-2 Antigen (Rapid) - Final Radiography Diagnostic Testing: Radiology Impression Abdomen/Pelvis CT 07/31/21 15:13 IMPRESSION: 1. Distended stomach and proximal small bowel. This appears more extensive than on the previous study. The transition point is not well visualized. 2. Luminal narrowing and wall thickening of the gastric antrum. The possibility of gastritis or mass cannot be entirely ruled out on the present study. No abnormality is seen on the prior study this may simply be due to compression by the adjacent distended small bowel loops. 3. SILVA catheter. Bladder calculi are seen both within the bladder lumen and the collateral right sided diverticulum. 4. No other major interval change. Electronically Signed: Oleg Berry DO at 16:37 EDT Tel [phone], Service support , KUB X-Ray 07/31/21 20:22 IMPRESSION: 1. NG tube as described. 2. Ileus versus early or incomplete small bowel obstruction. Electronically Signed: Oleg Berry DO at 21:48 EDT Tel [phone], Service support , Physical Exam Const alert Resp normal respiratory effort, no retractions, no use of accessory muscles and clear to auscultation bilaterally Cardio regular rate, regular rhythm, S1 normal heart sound and S2 normal heart sound GI normal to inspection, nondistended, normoactive bowel sounds GI Narrative: soft NT ND Assessment & Plan Assessment/Plan (1) Constipation: QUALIFIERS: Constipation type: unspecified constipation type Qualified Code(s): K59.00 - Constipation, unspecified (2) Nausea & vomiting: QUALIFIERS: Vomiting type: unspecified Vomiting Intractability: intractable Qualified Code(s): R11.2 - Nausea with vomiting, unspecified PLAN: 1. Ileus/SBO clamped NG. No BM/flatus NPO 2. hyponatremia improved continue IVF 3. gastric antrum wall thickening mass cannot be ruled out awaiting on bed at [facility] for further evaluation. Dr. Lopez recommended transfer which facilitated the discussion. 4. VTE prophylaxis: SCDs Nausea, vomiting and constipation Impression of abdomen and pelvis CT by radiologist as above. I agree with the radiologist interpretation. Received normal saline bolus at emergency department and started on maintenance infusion. Maintenance normal saline infusion continued. NG tube was placed at the emergency department. Trend CBC and BMP. Patient has been accepted to [facility] awaiting bed. Decreased urinary volume/hyponatremia/thrombocytosis Review of medical department labs showed sodium of 123; chloride of 86; and platelet of 461. Likely secondary to hypovolemia. IV fluids as above. Trend BMP. Trend CBC Muscle spasms On home baclofen. Held secondary to n.p.o. status Chronic constipation Linzess held secondary to n.p.o. status DVT prophylaxis: SCD ordered. Charges/Coding Procedures Hospitalists Procedures: Other Procedure - See Report (non billable rounding. pt admitted after midnight. )
[2021-08-02 03:55] VITALS: BP 140/77; PULSE 88; RESP 16; TEMP 36.8; O2SAT 97
[2021-08-02 04:51] LABS: Absolute Lymphocyte Count 1.46 X10^3/uL (0.83-4.51); Absolute Neutrophil Count 7.3 X10^3/uL (2.0-7.7); Basophil# 0.03 X10^3/uL; Basophil% 0.3 % (0-1); Eosinophil# 0.03 X10^3/uL; Eosinophils% 0.3 % (0-5); Hematocrit 38.4 % (40-54); Hemoglobin 12.9 g/dL (13.0-16.5); Lymphocyte # 1.46 X10^3/ul (0.83-4.51); Lymphocyte % 13.9 % (19-41); Mean Corp Hgb Conc 33.6 g/dL (32-36); Mean Corpuscular Hgb 29.4 pg (27.0-32.0); Mean Corpuscular Volume 87.5 fL (80-94); Mean Platelet Vol. 9.7 fl (6.2-12.0); Monocyte# 1.65 X10^3/uL; Monocyte% 15.7 % (0-10); NRBC Flagged by Analyzer 0 % (0-5); Neutrophil # 7.28 X10^3/uL (2.7-7.7); Neutrophil % 69.4 % (47-70); POSITIVE DIFFERENTIAL YES; Platelet Count 363 K/mm3 (150-450); RBC Distribution Width CV 12.8 % (11.6-14.6); RBC Distribution Width SD 40.5 fl (35.1-43.9); Red Blood Count 4.39 M/mm3 (4.6-6.2); White Blood Count 10.5 K/mm3 (4.4-11.0)
[2021-08-02 05:03] LABS: Differential Indicated SCAN CRITERIA MET
[2021-08-02 05:09] LABS: Anion Gap 12 (5-15); BUN 11 mg/dL (7-18); BUN/Creat Ratio 18.5 RATIO (10-20); Calcium,Total 8.6 mg/dL (8.5-10.1); Chloride 96 mmol/L (98-107); Creatinine, Serum 0.59 mg/dL (0.70-1.30); EST Glomerular Filtration Rate 151 mL/min (>60); Est Glom Filt Rate - Afr Amer 183 mL/min (>60); Glucose 73 mg/dL (74-106); Potassium 3.1 mmol/L (3.5-5.1); Sodium Level 133 mmol/L (136-145)
[2021-08-02] MEDS: 0.9% Normal Saline 1,000 ML 75 ML IV (05:28)
[2021-08-02 08:21] LABS: Bedside Glucose 73 mg/dL (70-110)
[2021-08-02 08:24] VITALS: BP 150/100; PULSE 97; RESP 16; TEMP 36.5; O2SAT 95
[2021-08-02 08:51] LABS: Magnesium 2.1 mg/dL (1.6-2.6)
[2021-08-02] MEDS: Dextrose 5%/0.9% NaCl 1,000 ML 150 ML IV ×3 (08:52→21:24)
[2021-08-02 08:58] VITALS: O2SAT 95
[2021-08-02] MEDS: Potassium Chloride 10mEq/100mL 10 MEQ/100 ML IV.SOLN. 100 MEQ IV BOLUS ×4 (09:45→12:44)
[2021-08-02 10:39] LABS: Color, Urine Yellow (Yellow); Glucose, Dipstick Normal (Normal); Leukocyte Esterase-Dipstick 500 /ul (Negative); Nitrite-Dipstick Positive (Negative); Occult Blood-Urine 25 /ul (Negative); Protein-Dipstick 30 mg/dl (Negative); Specific Gravity, Urine 1.015 (1.002-1.030); Urine Bilirubin Dipstick Negative (Negative); Urine Clarity Cloudy (Clear); Urine Urobilinogen Normal (Normal); Urine pH 6.5 (5.0 - 8.0)
[2021-08-02 10:47] LABS: Ketone-Dipstick 150 mg/dl (Negative)
[2021-08-02 13:01] VITALS: BP 158/96; PULSE 92; RESP 18; TEMP 37; O2SAT 98
--- NOTE | 2021-08-02 14:09 | PN.HOSP_ITS ---
Subjective Subjective still with copious liquid suctioned via NG. Feels he needs his catheter flushed. Objective Data Objective Data Vital Signs: Vital Signs Temp Pulse Resp BP Pulse Ox 37.0 C 92 18 158/96 H 98 08/02/21 13:01 08/02/21 13:01 08/02/21 13:01 08/02/21 13:01 08/02/21 13:01 Oxygen Delivery Method Room Air Weight: 58.786 kg Body Mass Index (BMI) 20.9 Intake & Output: Intake and Output for Last 24 Hours 07/31/21 08/01/21 08/02/21 23:59 23:59 23:59 Intake Total 1010 / 1010 2292.5 / 2292.5 2149.17 / 2149.17 Output Total 2525 / 3375 2300 / 2300 Balance 1010 / 1010 -232.5 / -1082.5 -150.83 / -150.83 Lab / Micro Data Result Diagrams: 08/02/21 04:29 08/02/21 04:29 Labs: Laboratory Results - last 24 hr 08/02/21 04:29: WBC 10.5, RBC 4.39 L, Hgb 12.9 L, Hct 38.4 L, MCV 87.5, MCH 29.4, MCHC 33.6, RDW Std Deviation 40.5, RDW Coeff of Frieda 12.8, Plt Count 363, M PV 9.7, Immature Gran % (Auto) 0.400, Neut % (Auto) 69.4, Lymph % (Auto) 13.9 L, [place] % (Auto) 15.7 H, Eos % (Auto) 0.3, Baso % (Auto) 0.3, Absolute Neuts (auto) 7.3, Absolute Lymphs (auto) 1.46, Nucleated RBC % 0 08/02/21 04:29: Sodium 133 L, Potassium 3.1 L, Chloride 96 L, Carbon Dioxide 25.0, Anion Gap 12, BUN 11, Creatinine 0.59 L, Estim Creat Clear Calc 120.40, Est GFR (MDRD) Af Amer 183, Est GFR (MDRD) Non-Af 151, BUN/Creatinine Ratio 18.5, Glucose 73 L, Calcium 8.6 08/02/21 04:29: Magnesium 2.1 08/02/21 08:17: POC Glucose 73 08/02/21 10:32: Urine Color Yellow, Urine Clarity Cloudy, Urine pH 6.5, Ur Specific [place] 1.015, Urine Protein 30 H, Urine Glucose (UA) Normal, Urine Ketones 150 A*, Urine Occult Blood 25 H, Urine Nitrite Positive H, Urine Bilirubin Negative, Urine Urobilinogen Normal, Ur Leukocyte Esterase 500 H Micro: Microbiology 07/31/21 18:10 Nasal Secretion SARS-CoV-2 Antigen (Rapid) - Final Physical Exam Const alert Resp normal respiratory effort, no retractions, no use of accessory muscles and clear to auscultation bilaterally Cardio regular rate, regular rhythm, S1 normal heart sound and S2 normal heart sound GI GI Narrative: hypoactive BS. distended. NT. hannon with light bola urine. Assessment & Plan Assessment/Plan (1) Constipation: QUALIFIERS: Constipation type: unspecified constipation type Qualified Code(s): K59.00 - Constipation, unspecified (2) Nausea & vomiting: QUALIFIERS: Vomiting type: unspecified Vomiting Intractability: intractable Qualified Code(s): R11.2 - Nausea with vomiting, unspecified PLAN: 1. SBO ongoing Sister who cares for him was asking RN for patient to receive laxative and miralax. I reviewed imaging and I don't appreciate much in the way of constipation. Appears more consistent with SBO, therefore, will avoid her recommendations until this is resolved NPO D5NS 2. hyponatremia improved continue IVF 3. gastric antrum wall thickening mass cannot be ruled out awaiting on bed at [facility] for further evaluation. Dr. Lopez recommended transfer which facilitated the discussion. 4. VTE prophylaxis: SCDs 5. Hypokalemia replace magnesium 2.1 6. Urinary sediment UA dipstick shows +Nitrite, 500 LE and 150 ketones. Check complete UA to determine if he does have actual infection. Sister asking for hannon to be flushed. Pt has urinary output, so will hold off for now. 7. Urinary ketones not in DKA. Normal AG monitor clinically for now. 8. DVT prophylaxis: SCD ordered. Charges/Coding Visit Charges Inpatient E&M: 99729 Subs Hosp L2
[2021-08-02 17:01] VITALS: BP 151/93; PULSE 95; RESP 18; TEMP 37.1; O2SAT 100
[2021-08-02 19:24] LABS: Mucous, Urine 0 SEEN /hpf (<or=2+); Squamous Epithelial Cells - UA 0 SEEN /hpf (0-5)
[2021-08-02 20:21] LABS: White Blood Cells 50-100 SEEN /hpf (0-5)
[2021-08-02 20:22] LABS: Bacteria 4+ /hpf (None Seen)
[2021-08-02 20:23] LABS: Red Blood Cells-Urine 0-5 SEEN /hpf (0-5)
[2021-08-02 23:05] VITALS: BP 155/92; PULSE 97; RESP 16; TEMP 37.4; O2SAT 97
[2021-08-03 03:32] VITALS: BP 155/96; PULSE 95; RESP 18; TEMP 37.1; O2SAT 97
[2021-08-03] MEDS: Dextrose 5%/0.9% NaCl 1,000 ML 150 ML IV ×3 (03:45→16:56)
[2021-08-03 05:16] LABS: Absolute Lymphocyte Count 1.43 X10^3/uL (0.83-4.51); Absolute Neutrophil Count 7.3 X10^3/uL (2.0-7.7); Basophil# 0.03 X10^3/uL; Basophil% 0.3 % (0-1); Eosinophil# 0.06 X10^3/uL; Eosinophils% 0.6 % (0-5); Hematocrit 35.1 % (40-54); Hemoglobin 11.6 g/dL (13.0-16.5); Lymphocyte # 1.43 X10^3/ul (0.83-4.51); Lymphocyte % 13.5 % (19-41); Mean Corpuscular Hgb 29.2 pg (27.0-32.0); Mean Corpuscular Volume 88.4 fL (80-94); Mean Platelet Vol. 9.8 fl (6.2-12.0); Monocyte# 1.75 X10^3/uL; Monocyte% 16.6 % (0-10); NRBC Flagged by Analyzer 0 % (0-5); Neutrophil # 7.26 X10^3/uL (2.7-7.7); Neutrophil % 68.6 % (47-70); POSITIVE DIFFERENTIAL YES; Platelet Count 346 K/mm3 (150-450); RBC Distribution Width CV 12.8 % (11.6-14.6); RBC Distribution Width SD 41.4 fl (35.1-43.9); Red Blood Count 3.97 M/mm3 (4.6-6.2); White Blood Count 10.6 K/mm3 (4.4-11.0)
[2021-08-03 05:22] LABS: Differential Indicated SCAN CRITERIA MET
[2021-08-03 05:45] LABS: Anion Gap 7 (5-15); BUN 6 mg/dL (7-18); BUN/Creat Ratio 10.6 RATIO (10-20); Calcium,Total 7.9 mg/dL (8.5-10.1); Chloride 99 mmol/L (98-107); Creatinine, Serum 0.56 mg/dL (0.70-1.30); EST Glomerular Filtration Rate 161 mL/min (>60); Est Glom Filt Rate - Afr Amer 194 mL/min (>60); Estimated Creatinine Clearance 126.84 ml/min; Glucose 149 mg/dL (74-106); Sodium Level 132 mmol/L (136-145)
[2021-08-03 08:02] VITALS: BP 153/94; PULSE 92; RESP 18; TEMP 37; O2SAT 99
[2021-08-03] MEDS: Potassium Chloride 10mEq/100mL 10 MEQ/100 ML IV.SOLN. 100 MEQ IV BOLUS ×4 (08:18→11:41)
[2021-08-03 08:35] VITALS: O2SAT 94
[2021-08-03 14:00] VITALS: BP 159/95; PULSE 93; RESP 18; TEMP 36.9; O2SAT 99
--- NOTE | 2021-08-03 14:51 | PN.HOSP_ITS ---
Subjective Subjective Patient states that he feels like something is in his rectum. Still getting copestone fluids suctioned out through his NG tube. Bowman catheter was flushed and he states that he feels better afterwards. Objective Data Objective Data Vital Signs: Vital Signs Temp Pulse Resp BP Pulse Ox 36.9 C 93 18 159/95 H 99 08/03/21 14:00 08/03/21 14:00 08/03/21 14:00 08/03/21 14:00 08/03/21 14:00 Oxygen Delivery Method Room Air Weight: 58.786 kg Body Mass Index (BMI) 20.9 Intake & Output: Intake and Output for Last 24 Hours 08/01/21 08/02/21 08/03/21 23:59 23:59 23:59 Intake Total 2292.5 / 2292.5 4224.17 / 4344.17 2690.0 / 2690.0 Output Total 2525 / 3375 2750 / 3700 2825 / 2825 Balance -232.5 / -1082.5 1474.17 / 644.17 -135.0 / -135.0 Lab / Micro Data Result Diagrams: 08/03/21 04:56 08/03/21 04:56 Labs: Laboratory Results - last 24 hr 08/02/21 10:32: Urine RBC 0-5 SEEN, Urine WBC 50-100 SEEN, Ur Squamous Epith Cells 0 SEEN, Urine Bacteria 4+, Urine Mucus 0 SEEN 08/02/21 10:32: Urine Color Cancelled, Urine Clarity Cancelled, Urine pH Cancelled, Ur Specific [place] Cancelled, U Specif Grav (Refrac) Cancelled, Urine Protein Cancelled, Urine Glucose (UA) Cancelled, Urine Ketones Cancelled, Urine Occult Blood Cancelled, Urine Nitrite Cancelled, Urine Bilirubin Cancelled, Urine Urobilinogen Cancelled, Ur Leukocyte Esterase Cancelled, Urine RBC Cancelled, Urine WBC Cancelled, Ur Squamous Epith Cells Cancelled, Ur Transition Epith Cell Cancelled, Ur Renal Epithelial Cell Cancelled, Calcium Ox alate Crystal Cancelled, Uric Acid Crystals Cancelled, Triple Phos Crystals Cancelled, Other Crystals Cancelled, Amorphous Sediment Cancelled, Urine Bacteria Cancelled, Hyaline Casts Cancelled, Fine Granular Casts Cancelled, Coarse Granular Casts Cancelled, Waxy Casts Cancelled, RBC Casts Cancelled, WBC Casts Cancelled, Urine Mucus Cancelled, Urine Trichomonas Cancelled, Urine Yeast Cancelled 08/03/21 04:56: WBC 10.6, RBC 3.97 L, Hgb 11.6 L, Hct 35.1 L, MCV 88.4, MCH 29.2, MCHC 33.0, RDW Std Deviation 41.4, RDW Coeff of Frieda 12.8, Plt Count 346, MPV 9.8, Immature Gran % (Auto) 0.400, Neut % (Auto) 68.6, Lymph % (Auto) 13.5 L , [place] % (Auto) 16.6 H, Eos % (Auto) 0.6, Baso % (Auto) 0.3, Absolute Neuts (auto) 7.3, Absolute Lymphs (auto) 1.43, Nucleated RBC % 0 08/03/21 04:56: Sodium 132 L, Potassium 3.0 L, Chloride 99, Carbon Dioxide 26.0, Anion Gap 7, BUN 6 L, Creatinine 0.56 L, Estim Creat Clear Calc 126.84, Est GFR (MDRD) Af Amer 194, Est GFR (MDRD) Non-Af 161, BUN/Creatinine Ratio 10.6, Glucose 149 H, Calcium 7.9 L Micro: Microbiology 08/02/21 10:32 Urine Catheter - Catheter Urine Culture - Preliminary GNR lactose community service director Gram negative kennedy 07/31/21 18:10 Nasal Secretion SARS-CoV-2 Antigen (Rapid) - Final Physical Exam Const alert HEENT Head and Scalp: normocephalic Eyes Eyes Narrative: Amblyopia Resp normal respiratory effort, no retractions, no use of accessory muscles and clear to auscultation bilaterally Cardio regular rate, regular rhythm, S1 normal heart sound and S2 normal heart sound GI soft to palpation GI Narrative: Distended. Hypoactive bowel sounds. Nontender. Extremity normal to inspection Neuro no focal motor deficits Sensorium / Orientation: awake and alert Psych affect normal Assessment & Plan Assessment/Plan (1) Constipation: QUALIFIERS: Constipation type: unspecified constipation type Qualified Code(s): K59.00 - Constipation, unspecified (2) Nausea & vomiting: QUALIFIERS: Vomiting type: unspecified Vomiting Intractability: intractable Qualified Code(s): R11.2 - Nausea with vomiting, unspecified (3) Small bowel obstruction: PLAN: 1. SBO ongoing Sister who cares for him was asking RN for patient to receive laxative and miralax. I reviewed imaging and I don't appreciate much in the way of constipation. Appears more consistent with SBO, therefore, will avoid her recommendations until this is resolved NPO D5NS Sister now requesting soapsuds enema. I think that is reasonable to least try that. Per nursing, the sister is going to administer that with the nurse at bed side May need to consider TPN in the near future. Patient began having symptoms on the . And essentially has been n.p.o. since then. 2. hyponatremia improved continue IVF 3. gastric antrum wall thickening mass cannot be ruled out awaiting on bed at [facility] for further evaluation. Dr. Lopez recommended transfer which facilitated the discussion. We will add PPI through the IV as a mention cannot rule out gastritis 4. VTE prophylaxis: SCDs 5. Hypokalemia replace magnesium 2.1 6. Urinary sediment UA shows 150 ketones, positive nitrites, 500 leuk esterase, 50-100 white blood cells and 4+ bacteria. Culture showing gram-negative rods Cannot rule out colonization but patient has had a history of Klebsiella pneumonia a UTI but has not been sensitive to ceftriaxone Start ceftriaxone 7. Urinary ketones not in DKA. Normal AG monitor clinically for now. 8. DVT prophylaxis: SCD ordered. 9. History of hydrocephalus with COMMUNICATIONS REPRESENTATIVE shunt: Over all complicates care and overall recovery. Charges/Coding Visit Charges Inpatient E&M: 35496 Subs Hosp L3
[2021-08-03] MEDS: Ceftriaxone 1 GM/50 ML BAG IV (16:57)
[2021-08-03 21:38] VITALS: BP 162/91; PULSE 95; RESP 18; TEMP 36.3; O2SAT 97
[2021-08-04] MEDS: Dextrose 5%/0.9% NaCl 1,000 ML 150 ML IV ×4 (00:31→22:29)
[2021-08-04 02:31] VITALS: BP 129/80; PULSE 88; RESP 18; TEMP 36.6; O2SAT 96
[2021-08-04 06:27] LABS: Absolute Lymphocyte Count 1.58 X10^3/uL (0.83-4.51); Absolute Neutrophil Count 5.9 X10^3/uL (2.0-7.7); Basophil# 0.03 X10^3/uL; Basophil% 0.3 % (0-1); Eosinophil# 0.06 X10^3/uL; Eosinophils% 0.6 % (0-5); Hematocrit 34.1 % (40-54); Hemoglobin 11.5 g/dL (13.0-16.5); Lymphocyte # 1.58 X10^3/ul (0.83-4.51); Lymphocyte % 16.8 % (19-41); Mean Corp Hgb Conc 33.7 g/dL (32-36); Mean Corpuscular Hgb 29.3 pg (27.0-32.0); Mean Corpuscular Volume 86.8 fL (80-94); Monocyte# 1.79 X10^3/uL; NRBC Flagged by Analyzer 0 % (0-5); Neutrophil # 5.88 X10^3/uL (2.7-7.7); Neutrophil % 62.3 % (47-70); POSITIVE DIFFERENTIAL YES; Platelet Count 342 K/mm3 (150-450); RBC Distribution Width CV 12.7 % (11.6-14.6); RBC Distribution Width SD 40.7 fl (35.1-43.9); Red Blood Count 3.93 M/mm3 (4.6-6.2); White Blood Count 9.4 K/mm3 (4.4-11.0)
[2021-08-04 06:47] LABS: Anion Gap 5 (5-15); BUN 3 mg/dL (7-18); BUN/Creat Ratio 5.7 RATIO (10-20); Calcium,Total 8.1 mg/dL (8.5-10.1); Chloride 102 mmol/L (98-107); Creatinine, Serum 0.53 mg/dL (0.70-1.30); EST Glomerular Filtration Rate 174 mL/min (>60); Est Glom Filt Rate - Afr Amer 210 mL/min (>60); Estimated Creatinine Clearance 134.02 ml/min; Glucose 129 mg/dL (74-106); Sodium Level 134 mmol/L (136-145)
[2021-08-04 07:09] LABS: Differential Indicated SCAN CRITERIA MET
[2021-08-04 08:20] VITALS: BP 156/85; PULSE 90; RESP 20; TEMP 36.9; O2SAT 95
[2021-08-04 08:23] VITALS: O2SAT 95
[2021-08-04] MEDS: Potassium Chloride 10mEq/100mL 10 MEQ/100 ML IV.SOLN. 100 MEQ IV BOLUS ×4 (08:38→14:40)
[2021-08-04] MEDS: Ceftriaxone 1 GM/50 ML BAG IV (10:40)
--- NOTE | 2021-08-04 11:06 | CASEMGMT ---
According to [facility] website, the following tertiary facilities are in network: [facility], [place], [facility], [place], [facility], [facility], [place], [facility], [place], [facility] and .
--- NOTE | 2021-08-04 13:20 | NURSING ---
sister of pt calls out states the pts back of throat feels funny where the NGT is... pt was sitting in WC- unable for this nurse to hear placement.. pt moved back to bed. placement rechecked - placement confirmed. checked back of throat no coiling of tubing noted. placed rolled towel to back of neck pt states feels better. Lisa TREJO updated.
--- NOTE | 2021-08-04 16:28 | PCM.PN.HOSP ---
Subjective Subjective Still with abdominal distention, no flatus or bowel movement. Objective Data Objective Data Vital Signs: Vital Signs Temp Pulse Resp BP Pulse Ox 36.9 C 90 20 H 156/85 H 95 08/04/21 08:20 08/04/21 08:20 08/04/21 08:20 08/04/21 08:20 08/04/21 08:23 Oxygen Delivery Method Room Air Weight: 58.786 kg Body Mass Index (BMI) 20.9 Intake & Output: Intake and Output for Last 24 Hours 08/02/21 08/03/21 08/04/21 23:59 23:59 23:59 Intake Total 4224.17 / 4344.17 4970.0 / 4970.0 2920.0 / 2920.0 Output Total 2750 / 3700 3525 / 3525 3825 / 3825 Balance 1474.17 / 644.17 1445.0 / 1445.0 -905.0 / -905.0 Lab / Micro Data Result Diagrams: 08/04/21 05:44 08/04/21 05:44 Labs: Laboratory Results - last 24 hr 08/04/21 05:44: WBC 9.4, RBC 3.93 L, Hgb 11.5 L, Hct 34.1 L, MCV 86.8, MCH 29.3, MCHC 33.7, RDW Std Deviation 40.7, RDW Coeff of Frieda 12.7, Plt Count 342, MPV 10.0, Immature Gran % (Auto) 1.000 H, Neut % (Auto) 62.3, Lymph % (Auto) 16.8 L, [place] % (Auto) 19.0 H, Eos % (Auto) 0.6, Baso % (Auto) 0.3, Absolute Neuts (auto) 5.9, Absolute Lymphs (auto) 1.58, Nucleated RBC % 0 08/04/21 05:44: Sodium 134 L, Potassium 3.0 L, Chloride 102, Carbon Dioxide 27.0, Anion Gap 5, BUN 3 L, Creatinine 0.53 L, Estim Creat Clear Calc 134.02, Est GFR (MDRD) Af Amer 210, Est GFR (MDRD) Non-Af 174, BUN/Creatinine Ratio 5.7 L, Glucose 129 H, Calcium 8.1 L Micro: Microbiology 08/02/21 10:32 Urine Catheter - Catheter Urine Culture - Preliminary GNR lactose dealer development manager Gram negative kennedy Gram negative kennedy#2 GPC Poss Enterococcus sp 07/31/21 18:10 Nasal Secretion SARS-CoV-2 Antigen (Rapid) - Final Physical Exam Const alert Constitutional Narrative: No acute distress and afebrile. Resp normal respiratory effort, no retractions, no use of accessory muscles and clear to auscultation bilaterally Cardio regular rate, regular rhythm, S1 normal heart sound and S2 normal heart sound GI GI Narrative: Distended. Nontender. Hypoactive bowel sounds. Extremity normal to inspection Neuro Sensorium / Orientation: awake and alert Assessment & Plan Assessment/Plan (1) Constipation: QUALIFIERS: Constipation type: unspecified constipation type Qualified Code(s): K59.00 - Constipation, unspecified (2) Nausea & vomiting: QUALIFIERS: Vomiting type: unspecified Vomiting Intractability: intractable Qualified Code(s): R11.2 - Nausea with vomiting, unspecified (3) Small bowel obstruction: PLAN: 1. SBO ongoing NPO D5NS Sister now requesting soapsuds enema. I think that is reasonable to least try that. Per nursing, the sister is going to administer that with the nurse at bed side May need to consider TPN in the near future. Patient began having symptoms on the . And essentially has been n.p.o. since then. 2. hyponatremia improved continue IVF 3. gastric antrum wall thickening mass cannot be ruled out awaiting on bed at [facility] for further evaluation. Nursing has reached out to [facility] and he is listed as high-priority, but still no bed. Dr. Lopez on admission recommended transfer which facilitated the discussion. Will defer surgical consultation when patient is transferred. We will add PPI through the IV as a mention cannot rule out gastritis 4. VTE prophylaxis: SCDs 5. Hypokalemia replace magnesium 2.1 6. Urinary sediment UA shows 150 ketones, positive nitrites, 500 leuk esterase, 50-100 white blood cells and 4+ bacteria. Culture showing gram-negative rods Cannot rule out colonization but patient has had a history of Klebsiella pneumonia a UTI but has not been sensitive to ceftriaxone Start ceftriaxone Urine culture with multiple organisms including gram-negative rods and possible Enterococcus. Continue with antibiotics for now. This could very well be colonization. 7. Urinary ketones not in DKA. Normal AG monitor clinically for now. 8. DVT prophylaxis: SCD ordered. 9. 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 Charges/Coding Visit Charges Inpatient E&M: 33970 Subs Hosp L2
[2021-08-04 19:31] VITALS: BP 143/84; PULSE 88; RESP 20; TEMP 36.8; O2SAT 97
[2021-08-05 02:16] VITALS: BP 128/76; PULSE 74; RESP 18; TEMP 36.9; O2SAT 98
[2021-08-05] MEDS: Dextrose 5%/0.9% NaCl 1,000 ML 150 ML IV ×3 (05:10→18:56)
[2021-08-05 07:04] LABS: Absolute Lymphocyte Count 1.79 X10^3/uL (0.83-4.51); Absolute Neutrophil Count 3.6 X10^3/uL (2.0-7.7); Basophil# 0.03 X10^3/uL; Basophil% 0.5 % (0-1); Eosinophil# 0.13 X10^3/uL; Hematocrit 33.3 % (40-54); Hemoglobin 11.4 g/dL (13.0-16.5); Lymphocyte # 1.79 X10^3/ul (0.83-4.51); Lymphocyte % 27.1 % (19-41); Mean Corp Hgb Conc 34.2 g/dL (32-36); Mean Corpuscular Hgb 29.7 pg (27.0-32.0); Mean Corpuscular Volume 86.7 fL (80-94); Mean Platelet Vol. 10.3 fl (6.2-12.0); Monocyte# 1.09 X10^3/uL; Monocyte% 16.5 % (0-10); NRBC Flagged by Analyzer 0 % (0-5); Neutrophil # 3.55 X10^3/uL (2.7-7.7); Neutrophil % 53.7 % (47-70); Platelet Count 332 K/mm3 (150-450); RBC Distribution Width CV 12.7 % (11.6-14.6); RBC Distribution Width SD 40.2 fl (35.1-43.9); Red Blood Count 3.84 M/mm3 (4.6-6.2); White Blood Count 6.6 K/mm3 (4.4-11.0)
[2021-08-05 07:18] LABS: Anion Gap 7 (5-15); BUN 2 mg/dL (7-18); BUN/Creat Ratio 4.1 RATIO (10-20); Calcium,Total 8.4 mg/dL (8.5-10.1); Chloride 103 mmol/L (98-107); Creatinine, Serum 0.49 mg/dL (0.70-1.30); EST Glomerular Filtration Rate 188 mL/min (>60); Est Glom Filt Rate - Afr Amer 228 mL/min (>60); Estimated Creatinine Clearance 144.97 ml/min; Glucose 122 mg/dL (74-106); Potassium 3.3 mmol/L (3.5-5.1); Sodium Level 134 mmol/L (136-145)
[2021-08-05 08:15] VITALS: BP 136/78; PULSE 88; RESP 18; TEMP 36.7; O2SAT 98
--- NOTE | 2021-08-05 09:02 | PN.HOSP_ITS ---
Subjective Subjective Patient was seen and examined. Waiting on transfer to the [facility]. No acute events overnight. Had multiple enemas Objective Data Objective Data Vital Signs: Vital Signs Temp Pulse Resp BP Pulse Ox 98.0 F 88 18 136/78 H 98 08/05/21 08:15 08/05/21 08:15 08/05/21 08:15 08/05/21 08:15 08/05/21 08:15 Oxygen Delivery Method Room Air Weight: 58.786 kg Body Mass Index (BMI) 20.9 Intake & Output: Intake and Output for Last 24 Hours 08/03/21 08/04/21 08/05/21 23:59 23:59 23:59 Intake Total 4970.0 / 4970.0 4300.0 / 4300.0 1260 / 1260 Output Total 3525 / 3525 5625 / 5625 775 / 775 Balance 1445.0 / 1445.0 -1325.0 / -1325.0 485 / 485 Lab / Micro Data Result Diagrams: 08/05/21 06:24 08/05/21 06:24 Labs: Laboratory Results - last 24 hr 08/05/21 06:24: WBC 6.6, RBC 3.84 L, Hgb 11.4 L, Hct 33.3 L, MCV 86.7, MCH 29.7, MCHC 34.2, RDW Std Deviation 40.2, RDW Coeff of Frieda 12.7, Plt Count 332, MPV 10.3, Immature Gran % (Auto) 0.200, Neut % (Auto) 53.7, Lymph % (Auto) 27.1, [place] % (Auto) 16.5 H, Eos % (Auto) 2.0, Baso % (Auto) 0.5, Absolute Neuts (auto) 3.6, Absolute Lymphs (auto) 1.79, Nucleated RBC % 0 08/05/21 06:24: Sodium 134 L, Potassium 3.3 L, Chloride 103, Carbon Dioxide 24.0, Anion Gap 7, BUN 2 L, Creatinine 0.49 L, Estim Creat Clear Calc 144.97, Est GFR (MDRD) Af Amer 228, Est GFR (MDRD) Non-Af 188, BUN/Creatinine Ratio 4.1 L, Glucose 122 H, Calcium 8.4 L Micro: Microbiology 08/02/21 10:32 Urine Catheter - Catheter Urine Culture - Preliminary GNR lactose wall scraper Gram negative kennedy Gram negative kennedy#2 GPC Poss Enterococcus sp 07/31/21 18:10 Nasal Secretion SARS-CoV-2 Antigen (Rapid) - Final Physical Exam Narrative Physical exam: General: Alert, Oriented x3, Cooperative, No apparent distress, cachectic, left- sided weakness, chronic with contractures HEENT: Atraumatic Oral: Moist Mucosa Neck: Supple Lungs: Clear to auscultation Cardiovascular: HS I+II, regular, no murmurs Abdomen: Bowel Sounds Present, Soft, Non Tender Extremities: Bilateral leg wasting, no edema Assessment & Plan Assessment/Plan (1) Constipation: QUALIFIERS: Constipation type: unspecified constipation type Qualified Code(s): K59.00 - Constipation, unspecified (2) Nausea & vomiting: QUALIFIERS: Vomiting Intractability: intractable Vomiting type: unspecified Qualified Code(s): R11.2 - Nausea with vomiting, unspecified (3) Small bowel obstruction: PLAN: 1. Acute small bowel obstruction, improved somehow status post enema Status post NG tube, continue to keep n.p.o. Patient has been accepted to the [facility]; awaiting bed 2. Hyponatremia, improved, continue to monitor 3. Hypokalemia, replaced, recheck in a.m. 4. Gastric antrum wall thickening; mass cannot be ruled out Transfer to [facility] is pending Continue on IV PPI twice daily 5. Probable acute Klebsiella pneumonia, Morganella, procidentia and Enterococcus UTI Continue IV ceftriaxone, sensitive to above organisms 6. 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 Charges/Coding Visit Charges Inpatient E&M: 20739 Subs Hosp L3
[2021-08-05 09:11] VITALS: O2SAT 98
[2021-08-05] MEDS: Potassium Chloride 10mEq/100mL 10 MEQ/100 ML IV.SOLN. 100 MEQ IV BOLUS ×4 (09:55→14:02)
[2021-08-05] MEDS: Ceftriaxone 1 GM/50 ML BAG IV (10:29)
[2021-08-05 14:00] VITALS: BP 144/86; PULSE 84; RESP 16; TEMP 36.7; O2SAT 99
--- NOTE | 2021-08-05 15:04 | CASEMGMT ---
Social Work Note SW received call from NEIL EATON through [facility] requesting update on pt. SW provided update. Anita Zaldivar PUBLIC AFFAIRS SPECIALIST, GLOBAL REGULATORY LEAD
[2021-08-05 20:30] VITALS: BP 142/97; PULSE 81; RESP 16; TEMP 36.7; O2SAT 98
[2021-08-06] VITALS (8 sets, daily range): BP systolic 120–157; BP diastolic 50–93; PULSE 83–94; RESP 14–20; TEMP 36.4–37; O2SAT 97–99
[2021-08-06] MEDS: Dextrose 5%/0.9% NaCl 1,000 ML 150 ML IV ×3 (01:52→20:47)
[2021-08-06 07:04] LABS: Absolute Neutrophil Count 4.3 X10^3/uL (2.0-7.7); Basophil# 0.02 X10^3/uL; Basophil% 0.3 % (0-1); Eosinophil# 0.16 X10^3/uL; Eosinophils% 2.3 % (0-5); Hemoglobin 11.7 g/dL (13.0-16.5); Mean Corp Hgb Conc 34.4 g/dL (32-36); Mean Corpuscular Hgb 29.5 pg (27.0-32.0); Mean Corpuscular Volume 85.6 fL (80-94); Mean Platelet Vol. 9.6 fl (6.2-12.0); Monocyte# 0.89 X10^3/uL; Monocyte% 12.6 % (0-10); NRBC Flagged by Analyzer 0 % (0-5); Neutrophil # 4.28 X10^3/uL (2.7-7.7); Neutrophil % 60.5 % (47-70); Platelet Count 372 K/mm3 (150-450); RBC Distribution Width CV 12.5 % (11.6-14.6); RBC Distribution Width SD 39.1 fl (35.1-43.9); Red Blood Count 3.97 M/mm3 (4.6-6.2); White Blood Count 7.1 K/mm3 (4.4-11.0)
[2021-08-06 08:10] LABS: ALB/GLOB Ratio 0.6 RATIO (0.9-2.4); AST(SGOT) 10 U/L (15-37); Alanine Aminotransfer ALT/SGPT 20 U/L (16-61); Albumin, Serum 2.4 g/dL (3.2-5.0); Alkaline Phosphatase 50 U/L (45-117); Anion Gap 7 (5-15); BUN 2 mg/dL (7-18); BUN/Creat Ratio 3.8 RATIO (10-20); Calcium,Total 8.1 mg/dL (8.5-10.1); Chloride 101 mmol/L (98-107); Creatinine, Serum 0.52 mg/dL (0.70-1.30); EST Glomerular Filtration Rate 176 mL/min (>60); Est Glom Filt Rate - Afr Amer 213 mL/min (>60); Globulin 4.1 g/dL (2.2-4.2); Glucose 137 mg/dL (74-106); Potassium 3.1 mmol/L (3.5-5.1); Protein, Total 6.5 g/dL (6.4-8.2); Sodium Level 133 mmol/L (136-145)
[2021-08-06] MEDS: Ceftriaxone 1 GM/50 ML BAG IV (10:40)
--- NOTE | 2021-08-06 13:10 | PCM.PN.HOSP ---
Subjective Subjective Patient was seen and examined. He had a medium-sized bowel movement yesterday after enemas. He still has an NG tube in situ. Denied any nausea or abdominal discomfort. Objective Data Objective Data Vital Signs: Vital Signs Temp Pulse Resp BP Pulse Ox 98 F 92 14 152/83 H 97 08/06/21 09:45 08/06/21 09:45 08/06/21 09:45 08/06/21 09:45 08/06/21 09:45 Oxygen Delivery Method Room Air Weight: 58.786 kg Body Mass Index (BMI) 20.9 Intake & Output: Intake and Output for Last 24 Hours 08/04/21 08/05/21 08/06/21 23:59 23:59 23:59 Intake Total 4300.0 / 4300.0 3860.0 / 3860.0 2280 / 2280 Output Total 5625 / 5625 3075 / 3675 1725 / 1725 Balance -1325.0 / -1325.0 785.0 / 185.0 555 / 555 Lab / Micro Data Result Diagrams: 08/06/21 06:40 08/06/21 06:40 Labs: Laboratory Results - last 24 hr 08/06/21 06:40: WBC 7.1, RBC 3.97 L, Hgb 11.7 L, Hct 34.0 L, MCV 85.6, MCH 29.5, MCHC 34.4, RDW Std Deviation 39.1, RDW Coeff of Frieda 12.5, Plt Count 372, MPV 9.6, Immature Gran % (Auto) 0.300, Neut % (Auto) 60.5, Lymph % (Auto) 24.0, [place] % (Auto) 12.6 H, Eos % (Auto) 2.3, Baso % (Auto) 0.3, Absolute Neuts (auto) 4.3, Absolute Lymphs (auto) 1.70, Nucleated RBC % 0 08/06/21 06:40: Sodium 133 L, Potassium 3.1 L, Chloride 101, Carbon Dioxide 25.0, Anion Gap 7, BUN 2 L, Creatinine 0.52 L, Estim Creat Clear Calc 136.60, Est GFR (MDRD) Af Amer 213, Est GFR (MDRD) Non-Af 176, BUN/Creatinine Ratio 3.8 L, Glucose 137 H, Calcium 8.1 L, Total Bilirubin 0.30, AST 10 L, ALT 20, Alkaline Phosphatase 50, Total Protein 6.5, Albumin 2.4 L, Globulin 4.1, Albumin/Globulin Ratio 0.6 L Micro: Microbiology 08/02/21 10:32 Urine Catheter - Catheter Urine Culture - Final Klebsiella pneumoniae sp pneum Morganella morganii sp morgani Providencia rettgeri Enterococcus faecalis 07/31/21 18:10 Nasal Secretion SARS-CoV-2 Antigen (Rapid) - Final Physical Exam Narrative Physical exam: General: Alert, Oriented x3, Cooperative, No apparent distress, cachectic, left-sided weakness, chronic with contractures HEENT: Atraumatic Oral: Moist Mucosa Neck: Supple Lungs: Clear to auscultation Cardiovascular: HS I+II, regular, no murmurs Abdomen: Bowel Sounds Present, Soft, Non Tender Extremities: Bilateral leg wasting, no edema Assessment & Plan Assessment/Plan (1) Constipation: QUALIFIERS: Constipation type: unspecified constipation type Qualified Code(s): K59.00 - Constipation, unspecified (2) Nausea & vomiting: QUALIFIERS: Vomiting type: unspecified Vomiting Intractability: intractable Qualified Code(s): R11.2 - Nausea with vomiting, unspecified (3) Small bowel obstruction: PLAN: 1. Acute small bowel obstruction, improved Patient had medium sized bowel movement Status post NG tube, continue to keep n.p.o. Discussed with general surgery; will reevaluate 2. Hyponatremia, improved, continue to monitor 3. Hypokalemia, replaced, recheck in a.m. 4. Gastric antrum wall thickening; mass cannot be ruled out Continue on IV PPI twice daily Await general surgery reevaluation 5. Probable acute Klebsiella pneumonia, Morganella, procidentia and Enterococcus UTI Continue IV ceftriaxone, sensitive to above organisms 6. 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 Charges/Coding Visit Charges Inpatient E&M: 56441 Subs Hosp L2
--- NOTE | 2021-08-06 14:48 | CON.PCM.GI_ITS ---
HPI Consult Data Date of Consult: 08/06/21 HPI Narrative HPI Narrative: JIAN ALTAMIRANO, is a 55 M who presents with a significant history of hydrocephalus status post [employer]UM[employer]ING [employer] HEATING [employer] shunts who presents with nausea and vomiting. He has a history of an indwelling catheter with multiple urinary tract infections. He follows up at [facility] for almost all of his GI issues in particular chronic idiopathic constipation, gastroesophageal reflux disease and possible second baclofen. I was called to see him due to an abnormal CT scan and possible gastric mass that was seen on imaging. He has been having intractable nausea vomiting since being in the hospital. He was diagnosed with a partial small bowel obstruction and did okay with conservative therapy. [facility] Medical History (Updated 08/06/21 @ 14:[address] Alfonso Friend, DO) Chronic indwelling Bowman catheter Hydrocephalus Home Medications baclofen 5 mg PO TID 12/11/20 [History Last Taken 12/11/20] linaclotide [Linzess] 72 mcg PO QHS 07/31/21 [History Last Taken Unknown] Allergy/AdvReac Type Severity Reaction Status Date / Time Iodinated Contrast Media Allergy Anaphylaxis Verified 07/31/21 14:56 [Iodinated Contrast Media - IV Dye] nitrofurantoin AdvReac Upset Verified 07/31/21 14:56 Stomach Family History Other Cancer Heart disease Peptic ulcer disease Surgical History S/P PLUM[employer]ING [employer] HEATING [employer]CH[employer]IC shunt Social History Smoking Status: Never smoker ROS ROS Narrative Patient is not able to give a good history and review of systems so most of it i s obtained from chart and the patient's family Physical Exam Const alert General Appearance: cooperative HEENT hearing grossly normal bilaterally Head and Scalp: normal to inspection Face and Sinus: face symmetric Nose: external nose normal Mouth: oral and palatal mucosa normal Eyes conjunctivae normal General Eye: normal appearance of both eyes Neck full ROM General: normal visual inspection Lymph Lymphatic: no lymphadenopathy noted Chest inspection of chest normal and palpation of chest normal Chest: symmetrical chest wall rise Resp normal respiratory effort Cardio regular rate GI non-distended Percussion: normal to percussion Rectal Exam: deferred Neuro Speech: speech normal Gait (Neuro): normal gait Lab / Micro Data Result Diagrams: 08/06/21 06:40 08/06/21 06:40 Labs: Laboratory Results - last 24 hr 08/06/21 06:40: WBC 7.1, RBC 3.97 L, Hgb 11.7 L, Hct 34.0 L, MCV 85.6, MCH 29.5, MCHC 34.4, RDW Std Deviation 39.1, RDW Coeff of Frieda 12.5, Plt Count 372, MPV 9.6, Immature Gran % (Auto) 0.300, Neut % (Auto) 60.5, Lymph % (Auto) 24.0, [place] % (Auto) 12.6 H, Eos % (Auto) 2.3, Baso % (Auto) 0.3, Absolute Neuts (auto) 4.3, Absolute Lymphs (auto) 1.70, Nucleated RBC % 0 08/06/21 06:40: Sodium 133 L, Potassium 3.1 L, Chloride 101, Carbon Dioxide 25.0, Anion Gap 7, BUN 2 L, Creatinine 0.52 L, Estim Creat Clear Calc 136.60, Est GFR (MDRD) Af Amer 213, Est GFR (MDRD) Non-Af 176, BUN/Creatinine Ratio 3.8 L, Glucose 137 H, Calcium 8.1 L, Total Bilirubin 0.30, AST 10 L, ALT 20, Alkaline Phosphatase 50, Total Protein 6.5, Albumin 2.4 L, Globulin 4.1, Albumin/Globulin Ratio 0.6 L Assessment & Plan Assessment/Plan (1) Small bowel obstruction: PLAN: Small bowel obstruction has resolved. He will undergo upper endoscopy to evaluate his stomach. If everything is okay then he will be able to eat (2) Gastric outlet obstruction: PLAN: He possibly has a gastric outlet obstruction secondary to hypo contractility from baclofen. Also the differential diagnosis for possible gastric mass or obstruction would be severe gastritis or gastric ulcer. This will be evaluated an upper endoscopy. (3) Nausea & vomiting: QUALIFIERS: Vomiting Intractability: intractable Vomiting type: unspecified Qualified Code(s): R11.2 - Nausea with vomiting, unspecified PLAN: Nausea vomiting possibly secondary to medication induced gastroparesis, gastric outlet obstruction or peptic ulcer disease.
--- NOTE | 2021-08-06 15:00 | EGD_PTH ---
PATIENT: JIAN ALTAMIRANO LOC: MS3 U#:[id number] AGE/SX: 55/M ROOM: ME319 RE08/01/[address]: Dr. Gladys Hernandez MD : 1965 BED: 1 DIS: 08/07/2021 SPEC #: [id number] RECD: 08/06/21 15:48 STATUS: ANA MURPHY #: [id number] KATHERINE: 08/06/21 15:[address]: Kaden Haynes DEPT: SURGICAL PATHOLOGY RECD BY: Felipe Lara ENTERED: 08/07/21 07:32 SP TYPE: EGD BIOPSY OT DR: MD Dr. Arian Cole MD Dr. Joseph Agyepong, MD Dr. William Lago, MD Tissues: Duodenum, NOS Procedures: Surgery Specimen Level IV HEADER OPERATION: EGD ([facility]) PRE-OP DIAGNOSIS: Small bowel obstruction; gastric outlet obstruction; nausea and vomiting TISSUE SUBMITTED: Biopsy duodenal polyp MICROSCOPIC DIAGNOSIS Duodenal polyp, biopsy: Polypoid fragment of benign small bowel type mucosa with minimal chronic inflammation. AM:lashell 08/10/2021 MICROSCOPIC DESCRIPTION Slides are reviewed. GROSS DESCRIPTION Received in fixative is one container labeled with the patient's name and designated biopsy duodenal polyp. The specimen consists of one irregular fragment of light lloyd soft tissue that measures 0.4 x 0.4 x 0.1 cm. The specimen is totally submitted in one cassette. / GOLD:lashell 08/07/21 TC:5 CPT: 26166
--- NOTE | 2021-08-06 15:54 | OP.CCLET_ITS ---
07/15/2022 Lyndon Sanders Re : Upper GI endoscopy procedure for Immanuel Fuentes Dear Tommy This procedure was performed on July. My impressions and recommendations are as follows: Impressions : - Normal esophagus. - Normal stomach. - A single duodenal polyp. Resected and retrieved. - Normal esophagus. - Normal stomach. - A single duodenal polyp. Resected and retrieved. Biopsied. Recommendations : - Return patient to hospital fan for ongoing care. - Resume regular diet today. - Use Protonix (pantoprazole) 40 mg PO BID indefinitely. - Continue present medications. My findings are described in the full procedure note, which is enclosed. If I can be of further assistance, please feel free to contact me at . Sincerely, Kaden Friend, 08/06/2021 3:53:52 PM This report has been signed electronically.
--- NOTE | 2021-08-06 15:54 | OP.EGD_ITS ---
Patient Name: Immanuel Fuentes Procedure Date: 08/06/2021 3:02 PM Date of : 1965 Age: 55 Procedure: Upper GI endoscopy Indications: Failure to respond to medical treatment Providers: Kaden Haynes DO Medicines: Monitored Anesthesia Care Patient Profile: This is a 55 year old male. Refer to note in patient chart for documentation of history and physical. Patient has symptoms. The symptoms first began 04,. Complications: No immediate complications. Procedure: Pre-Anesthesia Assessment: - Prior to the procedure, a History and Physical was performed, and patient medications and allergies were reviewed. The patient is competent. The risks and benefits of the procedure and the sedation options and risks were discussed with the patient. All questions were answered and informed consent was obtained. Patient identification and proposed procedure were verified by the physician in the pre-procedure area. Mental Status Examination: normal. Airway Examination: normal oropharyngeal airway and neck mobility. Respiratory Examination: clear to auscultation. CV Examination: normal. Prophylactic Antibiotics: The patient does not require prophylactic antibiotics. Prior Anticoagulants: The patient has taken no previous anticoagulant or antiplatelet agents. ASA Grade Assessment: II - A patient with mild systemic disease. After reviewing the risks and benefits, the patient was deemed in satisfactory condition to undergo the procedure. The anesthesia plan was to use moderate sedation / analgesia (conscious sedation). Immediately prior to administration of medications, the patient was re-assessed for adequacy to receive sedatives. The heart rate, respiratory rate, oxygen saturations, blood pressure, adequacy of pulmonary ventilation, and response to care were monitored throughout the procedure. The physical status of the patient was re-assessed after the procedure. After obtaining informed consent, the endoscope was passed under direct vision. Throughout the procedure, the patient's blood pressure, pulse, and oxygen saturations were monitored continuously. The Endoscope was introduced through the mouth, and advanced to the second part of duodenum. The upper GI endoscopy was accomplished without difficulty. The patient tolerated the procedure well. Moderate Sedation: Moderate (conscious) sedation was personally administered by an anesthesia professional. The following parameters were monitored: oxygen saturation, heart rate, blood pressure, and response to care. Scope In: 3:18:45 PM Scope Out: 3:24:48 PM Total Procedure Duration Time 0 hours 6 minutes 3 seconds Findings: The examined esophagus was normal. The entire examined stomach was normal. A single 5 mm sessile polyp was found in the second portion of the duodenum. The polyp was removed with a jumbo cold forceps. Resection and retrieval were complete. Estimated blood loss: none. Impression: - Normal esophagus. - Normal stomach. - A single duodenal polyp. Resected and retrieved. - Normal esophagus. - Normal stomach. - A single duodenal polyp. Resected and retrieved. Biopsied. Recommendation: - Return patient to hospital fan for ongoing care. - Resume regular diet today. - Use Protonix (pantoprazole) 40 mg PO BID indefinitely. - Continue present medications. Procedure Code(s): --- Professional --- 99934, Esophagogastroduodenoscopy, flexible, transoral; with biopsy, single or multiple CPT copyright 2017 [employer]. All rights reserved. The codes documented in this report are preliminary and upon dress marker review may be revised to meet current compliance requirements. Kaden Haynes DO 08/06/2021 3:53:52 PM This report has been signed electronically. Number of Addenda: 1 Note Initiated On: 08/06/2021 3:02 PM Addendum Number: 1 Addendum Date: 07/15/2022 4:02:47 PM MAC was used instead of moderate sedation for this patient. Kaden Haynes DO 07/15/2022 4:02:54 PM This report has been signed electronically.
--- NOTE | 2021-08-06 16:35 | PCM.DC ---
Discharge Instructions Diet Discharge Diet: No restrictions Activity Discharge Activity: Return to Normal Activity Follow Up Care Test Results: Test results from this visit will be discussed in further detail at your follow-up appointment, if applicable. Discharge Plan Admission Admit Date/Time: 08/01/21 02:49 Primary Reason for Your Visit: Intractable nausea, vomiting, abdominal pain Attending Provider: Gladys Hernandez Primary Care Provider: Lyndon Sanders Consulting Providers: Arian Lopez Discharge Orders/Prescriptions Prescriptions: New cefdinir 300 mg capsule 300 mg PO BID 3 Days Qty: 6 RF: 0 pantoprazole 40 mg tablet,delayed release (DR/EC) 40 mg PO BID 30 Days Qty: 60 RF: 0 Continued baclofen 5 MG tablet 5 mg PO TID RF: 0 Linzess 72 mcg capsule 72 mcg PO QHS RF: 0 Referrals / Follow Up: Lyndon Sanders MD [Primary Care Provider] - Within 2 Weeks Disposition Disposition (needs filled in before D/C Order can be placed): Home, Self Care
--- NOTE | 2021-08-06 16:40 | DS.PCM_ITS ---
Providers Date of Admission: 08/01/21 Date of Discharge: 08/07/21 Primary Care Physician: Dr. Lyndon Sanders MD Consultations 08/05/21 17:23 Consult: General Surgery Routine Consulting Provider: Arian Lopez Reason for Consult: small bowel obstruction EMERGENT Consult: No MD Notified: Yes Date Notified: 08/05/21 Time Notified: 17:23 Method of Notification: phone Reason For Visit: NAUSEA, VOMITING AND CONSTIPATION Diagnosis Discharge Diagnosis (1) Small bowel obstruction: Status: Resolved Code(s): K56.609 - Unspecified intestinal obstruction, unspecified as to partial versus complete obstruction (2) Gastric outlet obstruction: Status: Resolved Code(s): K31.1 - Adult hypertrophic pyloric stenosis (3) Nausea & vomiting: Status: Acute Code(s): R11.2 - Nausea with vomiting, unspecified Qualifiers: Vomiting Intractability: intractable Vomiting type: unspecified Qualified Code(s): R11.2 - Nausea with vomiting, unspecified (4) Hyponatremia: Status: Acute Code(s): E87.1 - Hypo-osmolality and hyponatremia (5) Hypokalemia: Status: Resolved Code(s): E87.6 - Hypokalemia (6) Gastric mass: Status: Resolved Code(s): K31.89 - Other diseases of stomach and duodenum (7) Urinary tract infection: Status: Acute Code(s): N39.0 - Urinary tract infection, site not specified Medications at Discharge Home Medications baclofen 5 mg PO TID 12/11/20 Linzess 72 mcg PO QHS 07/31/21 cefdinir 300 mg PO BID 3 Days #6 cap 08/06/21 pantoprazole 40 mg PO BID 30 Days #60 tab 08/06/21 azithromycin 250 mg PO DAILY 14 Days #14 tab 08/07/21 metoclopramide HCl [Reglan] 5 mg PO .qid 30 Days #120 tab 08/07/21 Hospital Course Operations None Procedures EGD (08/06/21) Summary of Care Provided Minutes Spent on Discharge: 45 Hospital Course: 55-year-old male with past medical history of hydrocephalus status post shunt, who presents with nausea and vomiting ongoing for 1 day prior to admission. This is associated with constipation. Patient usually receives a suppository and water enema to make his bowels move. He has chronic indwelling Bowman catheter. Urine output from the catheter was also found to be reduced. CT of the abdomen and pelvis showed distended stomach as well as proximal small bowel. There was luminal narrowing and wall thickening of the gastric antrum suggestive of possible gastritis or mass. Emergency room discussed with general surgery. The recommendation was transferred to [facility]. Patient was admitted pending admission to the [facility]. An NG tube was placed for partial small bowel obstruction . He continued to improve. He never got a bed from the [facility]. His urine cultures grew Klebsiella pneumonia, Morganella Morgagni, procidentia and Enterococcus. Patient had multiple bowel movements in this hospital stay. Patient had multiple bowel movement with soap coral enemas. General surgery and gastroenterology reevaluated him. Patient underwent EGD on 08/06/21. Findings showed normal esophagus, normal stomach, single duodenal polyp which was resected and retrieved. It was recommended that he be discharged on pantoprazole twice daily. Patient tolerated a regular diet, had multiple bowel movements. It was recommended patient be discharged on azithromycin to 50 mg once daily for 2 weeks, Reglan 5 mg 4 times daily. He was discharged to follow-up with his primary care doctor and gastroenterology within 2 weeks. Physical Exam Narrative Physical exam: General: Alert, Oriented x3, Cooperative, No apparent distress, cachectic, left- sided weakness, chronic with contractures HEENT: Atraumatic Oral: Moist Mucosa Neck: Supple Lungs: Clear to auscultation Cardiovascular: HS I+II, regular, no murmurs Abdomen: Bowel Sounds Present, Soft, Non Tender Extremities: Bilateral leg wasting, no edema Weight / BMI Weight Weight: 58.786 kg Body Mass Index (BMI) 20.9 ABG / Lab / Microbiology Data Result Diagrams: 08/07/21 05:20 08/07/21 05:20 Laboratory: Laboratory Results - last 24 hr 08/06/21 06:40: WBC 7.1, RBC 3.97 L, Hgb 11.7 L, Hct 34.0 L, MCV 85.6, MCH 29.5, MCHC 34.4, RDW Std Deviation 39.1, RDW Coeff of Frieda 12.5, Plt Count 372, MPV 9.6, Immature Gran % (Auto) 0.300, Neut % (Auto) 60.5, Lymph % (Auto) 24.0, [place] % (Auto) 12.6 H, Eos % (Auto) 2.3, Baso % (Auto) 0.3, Absolute Neuts (auto) 4.3, Absolute Lymphs (auto) 1.70, Nucleated RBC % 0 08/06/21 06:40: Sodium 133 L, Potassium 3.1 L, Chloride 101, Carbon Dioxide 25.0, Anion Gap 7, BUN 2 L, Creatinine 0.52 L, Estim Creat Clear Calc 136.60, Est GFR (MDRD) Af Amer 213, Est GFR (MDRD) Non-Af 176, BUN/Creatinine Ratio 3.8 L, Glucose 137 H, Calcium 8.1 L, Total Bilirubin 0.30, AST 10 L, ALT 20, Alkaline Phosphatase 50, Total Protein 6.5, Albumin 2.4 L, Globulin 4.1, Albumin/Globulin Ratio 0.6 L Microbiology: Microbiology 08/02/21 10:32 Urine Catheter - Catheter Urine Culture - Final Klebsiella pneumoniae sp pneum Morganella morganii sp morgani Providencia rettgeri Enterococcus faecalis 07/31/21 18:10 Nasal Secretion SARS-CoV-2 Antigen (Rapid) - Final D/C Instructions Discharge Diet: No restrictions Meaningful Use Info Meaningful Use Diagnoses (Choose all that apply): None applicable Discharge Plan Admission Admit Date/Time: 08/01/21 02:49 Primary Reason for Your Visit: Intractable nausea, vomiting, abdominal pain Attending Provider: Gladys Hernandez Primary Care Provider: Lyndon Sanders Consulting Providers: Arian Lopez Discharge Orders/Prescriptions Prescriptions: New cefdinir 300 mg capsule 300 mg PO BID 3 Days Qty: 6 RF: 0 pantoprazole 40 mg tablet,delayed release (DR/EC) 40 mg PO BID 30 Days Qty: 60 RF: 0 metoclopramide HCl [Reglan] 5 mg tablet 5 mg PO .qid 30 Days Qty: 120 RF: 0 azithromycin 250 mg tablet 250 mg PO DAILY 14 Days Qty: 14 RF: 0 Continued baclofen 5 MG tablet 5 mg PO TID RF: 0 Linzess 72 mcg capsule 72 mcg PO QHS RF: 0 Referrals / Follow Up: Kaden Haynes DO [STAFF PHYSICIAN] - Within 2 Weeks Lyndon Sanders MD [Primary Care Provider] - 08/12/21 11:20 am (wear mask) Disposition Disposition (needs filled in before D/C Order can be placed): Home, Self Care Charges/Coding Visit Charges Inpatient E&M: 89421 Disch Hosp
[2021-08-07 02:12] VITALS: BP 133/85; PULSE 92; RESP 18; TEMP 37.1; O2SAT 94
[2021-08-07] MEDS: Dextrose 5%/0.9% NaCl 1,000 ML 150 ML IV (03:28)
[2021-08-07 05:40] LABS: Absolute Lymphocyte Count 1.94 X10^3/uL (0.83-4.51); Absolute Neutrophil Count 3.7 X10^3/uL (2.0-7.7); Basophil# 0.03 X10^3/uL; Basophil% 0.4 % (0-1); Eosinophil# 0.19 X10^3/uL; Eosinophils% 2.7 % (0-5); Hematocrit 33.9 % (40-54); Hemoglobin 11.6 g/dL (13.0-16.5); Lymphocyte # 1.94 X10^3/ul (0.83-4.51); Lymphocyte % 27.8 % (19-41); Mean Corp Hgb Conc 34.2 g/dL (32-36); Mean Corpuscular Hgb 29.4 pg (27.0-32.0); Mean Platelet Vol. 9.6 fl (6.2-12.0); Monocyte# 1.08 X10^3/uL; Monocyte% 15.5 % (0-10); NRBC Flagged by Analyzer 0 % (0-5); Neutrophil # 3.73 X10^3/uL (2.7-7.7); Neutrophil % 53.5 % (47-70); Platelet Count 383 K/mm3 (150-450); RBC Distribution Width CV 12.4 % (11.6-14.6); RBC Distribution Width SD 39.3 fl (35.1-43.9); Red Blood Count 3.94 M/mm3 (4.6-6.2)
[2021-08-07 06:05] LABS: ALB/GLOB Ratio 0.6 RATIO (0.9-2.4); AST(SGOT) 14 U/L (15-37); Alanine Aminotransfer ALT/SGPT 25 U/L (16-61); Albumin, Serum 2.4 g/dL (3.2-5.0); Alkaline Phosphatase 53 U/L (45-117); Anion Gap 6 (5-15); BUN 4 mg/dL (7-18); BUN/Creat Ratio 7.6 RATIO (10-20); Calcium,Total 8.2 mg/dL (8.5-10.1); Chloride 103 mmol/L (98-107); Creatinine, Serum 0.53 mg/dL (0.70-1.30); EST Glomerular Filtration Rate 174 mL/min (>60); Est Glom Filt Rate - Afr Amer 210 mL/min (>60); Estimated Creatinine Clearance 134.02 ml/min; Globulin 4.1 g/dL (2.2-4.2); Glucose 135 mg/dL (74-106); Potassium 3.1 mmol/L (3.5-5.1); Protein, Total 6.5 g/dL (6.4-8.2); Sodium Level 134 mmol/L (136-145)
[2021-08-07 08:15] VITALS: BP 142/94; PULSE 89; RESP 18; TEMP 36.6; O2SAT 97
[2021-08-07] MEDS: Potassium Chloride Oral Tablet 20 MEQ 60 MEQ PO (08:30)
--- NOTE | 2021-08-07 09:31 | CASEMGMT ---
[facility] in to pt room to discuss dc planning. Pt states he has his sisters (2) who rotate weeks coming in to stay with him. Pt states he does not feel that he needs any therapy at home, discussed HHC. Pt aware that if he changes his mind before he leaves to notify the [facility]. If he changes his mind at home, he should notify his PCP of his request for HHC. Pt verbalizes understanding.
--- NOTE | 2021-08-07 09:57 | EX.PCM.PN.GI ---
Subjective Subjective Patient is eating without any problems. He is not having any nausea or vomiting. He is not having abdominal pain. I had a long talk with his sister and power of criminal attorney yesterday after the procedure regarding the multiple bowel issues that he has that I believe is leading to a lot of his digestion issues Objective Data Objective Data Vital Signs: Vital Signs Temp Pulse Resp BP Pulse Ox 97.9 F 89 18 142/94 H 97 08/07/21 08:15 08/07/21 08:15 08/07/21 08:15 08/07/21 08:15 08/07/21 08:15 Oxygen Delivery Method Room Air Weight: 129 lb 9.6 oz Body Mass Index (BMI) 20.9 Intake & Output: Intake and Output for Last 24 Hours 08/05/21 08/06/21 08/07/21 23:59 23:59 23:59 Intake Total 3860.0 / 3860.0 3280 / 3280 1000 / 1000 Output Total 3075 / 3675 2525 / 4525 2700 / 2700 Balance 785.0 / 185.0 755 / -1245 -1700 / -1700 Lab / Micro Data Result Diagrams: 08/07/21 05:20 08/07/21 05:20 Labs: Laboratory Results - last 24 hr 08/07/21 05:20: WBC 7.0, RBC 3.94 L, Hgb 11.6 L, Hct 33.9 L, MCV 86.0, MCH 29.4, MCHC 34.2, RDW Std Deviation 39.3, RDW Coeff of Frieda 12.4, Plt Count 383, MPV 9.6, Immature Gran % (Auto) 0.100, Neut % (Auto) 53.5, Lymph % (Auto) 27.8, [place] % (Auto) 15.5 H, Eos % (Auto) 2.7, Baso % (Auto) 0.4, Absolute Neuts (auto) 3.7, Absolute Lymphs (auto) 1.94, Nucleated RBC % 0 08/07/21 05:20: Sodium 134 L, Potassium 3.1 L, Chloride 103, Carbon Dioxide 25.0, Anion Gap 6, BUN 4 L, Creatinine 0.53 L, Estim Creat Clear Calc 134.02, Est GFR (MDRD) Af Amer 210, Est GFR (MDRD) Non-Af 174, BUN/Creatinine Ratio 7.6 L, Glucose 135 H, Calcium 8.2 L, Total Bilirubin 0.30, AST 14 L, ALT 25, Alkaline Phosphatase 53, Total Protein 6.5, Albumin 2.4 L, Globulin 4.1, Albumin/Globulin Ratio 0.6 L Micro: Microbiology 08/02/21 10:32 Urine Catheter - Catheter Urine Culture - Final Klebsiella pneumoniae sp pneum Morganella morganii sp morgani Providencia rettgeri Enterococcus faecalis 07/31/21 18:10 Nasal Secretion SARS-CoV-2 Antigen (Rapid) - Final Physical Exam Const alert General Appearance: cooperative Orientation / Consciousness: oriented to person HEENT hearing grossly normal bilaterally Head and Scalp: normal to inspection Face and Sinus: face symmetric Nose: external nose normal Mouth: oral and palatal mucosa normal Eyes conjunctivae normal General Eye: normal appearance of both eyes Neck full ROM General: normal visual inspection Lymph Lymphatic: no lymphadenopathy noted Chest inspection of chest normal and palpation of chest normal Chest: symmetrical chest wall rise Resp normal respiratory effort Effort and Inspection: able to speak in complete sentences Cardio regular rate GI non-distended Percussion: normal to percussion Rectal Exam: deferred Neuro Speech: speech normal Gait (Neuro): normal gait Assessment & Plan Assessment/Plan (1) Gastric outlet obstruction: PLAN: I believe gastric outlet obstruction was secondary to a partial small bowel obstruction. I remove the NG tube during endoscopy yesterday after seeing that there was good movement in the small bowel at the level of the duodenum and no signs of obstruction in the stomach. (2) Small bowel obstruction: PLAN: Partial small bowel obstruction versus ileus secondary to chronic constipation. He needs a aggressive bowel regimen. (3) Constipation: QUALIFIERS: Constipation type: unspecified constipation type Qualified Code(s): K59.00 - Constipation, unspecified PLAN: I talked to his sister and recommended medical oil twice a day, azithromycin 250 mg once a day x2 weeks to increase small bowel motility by inhibiting migratory motor complex. (4) Nausea & vomiting: QUALIFIERS: Vomiting type: unspecified Vomiting Intractability: intractable Qualified Code(s): R11.2 - Nausea with vomiting, unspecified PLAN: I would recommend 5 mg of Reglan 4 times daily along with Protonix 40 mg once a day. If he is discharged today he can follow-up in the office in about 2 weeks.
[2021-08-07 10:00] VITALS: PULSE 89; O2SAT 97
[2021-08-07] MEDS: Ceftriaxone 1 GM/50 ML BAG IV (10:47)
--- NOTE | 2021-08-07 15:45 | CASEMGMT ---
Received tc from [facility] who requests DC summary to be faxed to her. Faxed at this time.
--- NOTE | 2021-08-08 00:30 | NURSING ---
Late note: [facility] called with a bed assignment. This RN advised [facility] that pt had been discharged to home today.
--- NOTE | 2021-08-10 14:10 | CASEMGMT ---
RN CM Discharge Follow-up Phone Call: CIELO: 11 Strata: 3 Call Date: 08/10/21 Discharge Date: 08/07/21 Time of Call: 1410 Duration: 1 min Admitting Diagnosis: N/V/Constipation RN ANGELITO attempted to complete follow-up phone call after recent hospitalization. No answer and unable to leave message as voicemail box is not setup.
== END 2021-08-07 14:00 | disposition home or self-care (01) | DRG 389 ==
LOC: ED 21:50 → MS3 08-01 03:18
PROVIDERS: Internal Medicine Gastroenterology; Admitting Provider Hospitalist; Emergency Provider Emergency Medicine; PCP Family Medicine; Visit Provider Internal Medicine
PROC: 0DJ08ZZ Inspection of Upper Intestinal Tract, Via Natural or Artificial Opening Endoscopic (ICD-10-PCS; CPT 43235; principal; 2021-08-06 14:55)
DX: K56.600 Partial intestinal obstruction, unspecified as to cause (principal); K31.1 Adult hypertrophic pyloric stenosis; G91.9 Hydrocephalus, unspecified; E87.1 Hypo-osmolality and hyponatremia; N39.0 Urinary tract infection, site not specified; Z98.2 Presence of cerebrospinal fluid drainage device; M62.838 Other muscle spasm; E86.1 Hypovolemia; E87.6 Hypokalemia; B95.2 Enterococcus as the cause of diseases classified elsewhere; B96.89 Other specified bacterial agents as the cause of diseases classified elsewhere; B96.1 Klebsiella pneumoniae [K. pneumoniae] as the cause of diseases classified elsewhere
CPT/HCPCS: 36415; 74018; 74176; 80048; 80053; 81002; 82962; 83690; 83735; 85025; 87077; 87086; 87088; 87186; 87426; 88305; 97110; 97162; 97530; 99285; J7030; J7050; J7120; A4216; J2405; J3490

== ENCOUNTER 2021-08-20 00:20 | Emergency (ER) | payer MEDICARE, MEDICAID, SELFPAY ==
[2021-08-20 00:21] VITALS: BP 144/110; PULSE 95; RESP 16; TEMP 36.5; O2SAT 96; BMI 22.6
--- NOTE | 2021-08-20 00:44 | EX.ED.GUMALE ---
HPI History of Present Illness Chief Complaint: Bowman C/O Detail of Chief Complaint: Bowman catheter problem that started last evening Informant: patient and family Narrative Narrative: Patient presents with concern for a malfunctioning Bowman catheter. Patient apparently had his catheter changed yesterday at his family practitioner's office and last evening noted that it was draining around the catheter and he was having some pressure in his abdomen. His caregiver who is a sister attempted to irrigated and irrigated without difficulty but was leaking around the catheter. There is concerned that the balloon might be broken or the catheter is malfunctioning. Patient otherwise has not been ill. No fever. No other complaints. Patient currently not having any abdominal discomfort. [facility] Medical History (Updated 08/20/21 @ 01:[address] Arely Wallace DO) Chronic indwelling Bowman catheter Hydrocephalus Home Medications baclofen 5 mg PO TID 12/11/20 [History Last Taken 12/11/20] Linzess 72 mcg PO QHS 07/31/21 [History Last Taken Unknown] cefdinir 300 mg PO BID 3 Days #6 cap 08/06/21 [Rx Last Taken Unknown] pantoprazole 40 mg PO BID 30 Days #60 tab 08/06/21 [Rx Last Taken Unknown] azithromycin 250 mg PO DAILY 14 Days #14 tab 08/07/21 [Rx Last Taken Unknown] metoclopramide HCl [Reglan] 5 mg PO .qid 30 Days #120 tab 08/07/21 [Rx Last Taken Unknown] Allergy/AdvReac Type Severity Reaction Status Date / Time Iodinated Contrast Media Allergy Anaphylaxis Verified 08/20/21 00:21 [Iodinated Contrast Media - IV Dye] nitrofurantoin AdvReac Upset Verified 08/20/21 00:21 Stomach Family History Other Cancer Heart disease Peptic ulcer disease Surgical History S/P [employer] shunt Social History Smoking Status: Never smoker ROS ROS ED Constitutional Constitutional ED: Reports systems reviewed and no addt'l complaints, except as documented; Denies body ache(s), change in weight or chills Eyes Eyes: Denies acute decrease in peripheral vision, change in vision, double vision or loss of vision ENT ENT ED: Reports none; Denies ear pain, lip swelling, loss taste/smell, neck pain, otalgia or sore throat Cardiovascular Cardiovascular: Reports none; Denies abdominal pain, chest pain with activity, leg edema, lightheadedness, palpitations, rapid heart rate or syncope Respiratory/Chest Respiratory/Chest: Reports none; Denies change in mental status, dry cough, dyspnea, hemoptysis, shortness of breath at rest or shortness of breath with exertion Gastrointestinal Gastrointestinal: Reports none; Denies abdominal pain, change in stool character, diarrhea, hematemesis, hematochezia, melena, rectal bleeding or vomiting Genitourinary Genitourinary ED: Reports none; Denies abdominal discomfort, anuria, dysuria, genital pain or polyuria Musculoskeletal Musculoskeletal: Reports none; Denies arthralgias, back pain, difficulty walking, extremity pain, muscle weakness or myalgias Integumentary Reports none; Denies abscess or rash Neurologic Neurologic: Reports none; Denies abnormal gait, confusion, focal weakness, frequent falls, headache(s), loss of vision, numbness, paresthesias, radicular pain, vertigo or weakness Psychiatric Psychiatric: Reports systems reviewed and no addt'l complaints, except as documented and none; Denies behavioral changes, confusion, difficulty concentrating, hallucinations, suicidal ideation, tactile hallucinations or visual hallucinations Endocrine Endocrinology: Denies none, cold intolerance, excessive sweating, fatigue or heat intolerance Hematologic/Lymphatic Hematologic/Lymphatic: Reports none; Denies anemia, easy bleeding or easy bruising Allergic/Immunologic Allergic/Immunologic ED: Denies as per HPI, none, lip swelling, mouth swelling, throat swelling, tongue swelling or hives EXAM Physical Exam Const Vital Signs: 08/20/21 00:21 08/20/21 01:10 Temperature 97.7 F L Temperature Source Temporal Pulse Rate 95 Respiratory Rate 16 17 Blood Pressure 144/110 H Blood Pressure Mean 121 Pulse Ox 96 Oxygen Delivery Method Room Air Positive well nourished and well developed General Appearance ED: well developed and NAD HEENT Reports TM's clear and moist mucous membranes normocephalic and atraumatic; Negative for trauma or tenderness Tympanic Membrane ED: Yes TM's clear Eyes PERRL and EOMs intact bilaterally General Eye ED: Negative for pale conjunctiva or scleral icterus Neck no lymphadenopathy, supple and no JVD General: Negative for tenderness Chest Wall inspection of chest normal and palpation of chest normal Chest: Negative for tenderness Resp normal respiratory effort and clear to auscultation bilaterally Effort and Inspection: Negative for respiratory distress or pain with movement Auscultation: Negative for rhonchi, wheezes or diminished lung sounds Cardio regular rate, regular rhythm, S1 normal heart sound, S2 normal heart sound and no murmurs Peripheral Pulses: pulses 2+ throughout GI normal to inspection, nondistended, normoactive bowel sounds, soft to palpation, non-tender, non-distended and no masses Back/Spine no CVA tenderness and no thoracic nor lumbar tenderness Extremity normal to inspection General Extremety ED: Negative for edema General Extremity: Negative for edema Neuro oriented x3, CN's II-XII intact bilaterally, no sensory deficits noted and gait normal Sensorium / Orientation: awake, alert, oriented to person, oriented to place and oriented to time Motor Exam: strength 5/5 throughout and strength abnormal Psych mental status grossly normal Skin no rashes or lesions noted and no wounds MDM MDM MDM Narrative Medical decision making narrative: Patient's Bowman catheter was replaced. Patient draining clear urine and has no complaints otherwise. Discharge Plan Triage Chief Complaint: Bowman C/O ED Provider: Arely Wallace Dx/Rx/DC Orders Clinical Impression: Encounter for Bowman catheter replacement Instructions: ED Bowman Catheter, Care Prescriptions: No Action baclofen 5 MG tablet 5 mg PO TID RF: 0 Linzess 72 mcg capsule 72 mcg PO QHS RF: 0 cefdinir 300 mg capsule 300 mg PO BID 3 Days Qty: 6 RF: 0 pantoprazole 40 mg tablet,delayed release (DR/EC) 40 mg PO BID 30 Days Qty: 60 RF: 0 metoclopramide HCl [Reglan] 5 mg tablet 5 mg PO .qid 30 Days Qty: 120 RF: 0 azithromycin 250 mg tablet 250 mg PO DAILY 14 Days Qty: 14 RF: 0 Primary Care Provider: Lyndon Sanders Referrals: Lyndon Sanders MD [Primary Care Provider] - As Needed Disposition Disposition: Home, Self Care
[2021-08-20 01:10] VITALS: RESP 17
== END 2021-08-20 01:36 | disposition home or self-care (01) ==
PROVIDERS: Emergency Provider Emergency Medicine; PCP Family Medicine
DX: Z46.6 Encounter for fitting and adjustment of urinary device (principal); T83.098A Other mechanical complication of other urinary catheter, initial encounter
CPT/HCPCS: 99282

== ENCOUNTER 2021-09-12 10:45 | Emergency (ER) | payer MEDICARE, MEDICAID, SELFPAY ==
[2021-09-12 10:46] VITALS: BP 114/97; PULSE 83; RESP 18; TEMP 36.6; O2SAT 98; BMI 23.0
--- NOTE | 2021-09-12 11:14 | EDS_ITS ---
HPI History of Present Illness Chief Complaint: Bowman C/O Informant: patient and family Pain Onset: Today Context: Sudden Onset Timing: Continuous Current Severity: Mild Maximum Severity: Mild Narrative Narrative: 55-year-old male history of hydrocephalus with shunt. History of chronic urinary retention with indwelling Bowman catheter for around the last year. He had his catheter changed about a month ago. States is not emptying today. He denies any fever. He denies any other complaints. Prior similar symptoms: Yes Recent Illness/Hospitalization: Yes PFSH PFSH Medical History Chronic indwelling Bowman catheter Gastroparesis Hydrocephalus Ileus Home Medications baclofen 5 mg PO TID 12/11/20 [History Last Taken 12/11/20] Linzess 72 mcg PO QHS 07/31/21 [History Last Taken Unknown] cefdinir 300 mg PO BID 3 Days #6 cap 08/06/21 [Rx Last Taken Unknown] pantoprazole 40 mg PO BID 30 Days #60 tab 08/06/21 [Rx Last Taken Unknown] azithromycin 250 mg PO DAILY 14 Days #14 tab 08/07/21 [Rx Last Taken Unknown] metoclopramide HCl [Reglan] 5 mg PO .qid 30 Days #120 tab 08/07/21 [Rx Last Taken Unknown] psyllium husk 3.4 gram/5.4 gram oral powder 1 tbsp PO DAILY PRN 08/20/21 [History Last Taken Unknown] Allergy/AdvReac Type Severity Reaction Status Date / Time Iodinated Contrast Media Allergy Anaphylaxis Verified 09/12/21 10:49 [Iodinated Contrast Media - IV Dye] nitrofurantoin AdvReac Upset Verified 09/12/21 10:49 Stomach Family History Other Cancer Heart disease Peptic ulcer disease Surgical History S/P [employer] shunt Social History Smoking Status: Never smoker ROS ROS ED ROS Narrative Denies recent illness. Review of Systems ROS Unobtainable: Denies due to encephalopathy Constitutional Constitutional ED: Denies fever(s) Eyes Eyes: Denies change in vision ENT ENT ED: Denies ear pain Cardiovascular Cardiovascular: Denies chest pain Respiratory/Chest Respiratory/Chest: Denies cough or dyspnea Gastrointestinal Gastrointestinal: Denies abdominal pain, diarrhea, nausea or vomiting Genitourinary Genitourinary ED: Denies dysuria or hematuria Musculoskeletal Musculoskeletal: Denies myalgias Integumentary Denies rash Neurologic Neurologic: Denies headache(s) Psychiatric Psychiatric: Denies depression Endocrine Endocrinology: Denies polyuria Hematologic/Lymphatic Hematologic/Lymphatic: Denies easy bruising Allergic/Immunologic Allergic/Immunologic ED: Denies urticaria EXAM Physical Exam Narrative Exam Narrative: Middle-age male no acute distress vital signs stable afebrile. HEENT exam unremarkable. Lungs clear. Heart regular rhythm. Abdomen soft nondistended normal bowel sounds no peritoneal signs. General exam unremarkable. Bowman catheter in place. There is no draining of urine. Extremities nontender no edema. Neurologically is awake and alert. He is answering questions and following commands. Const Vital Signs: 09/12/21 10:46 Temperature 98 F Temperature Source Temporal Pulse Rate 83 Respiratory Rate 18 Blood Pressure 114/97 H Blood Pressure Mean 102 Pulse Ox 98 Oxygen Delivery Method Room Air Positive well nourished and well developed; Negative for obese, cachectic, contractures or unkempt General Appearance ED: well developed and NAD; Negative for unkempt, cachectic or contractures Nutritional Appearance: Negative for cachectic or obese HEENT Reports moist mucous membranes normocephalic and atraumatic Eyes PERRL and EOMs intact bilaterally Neck no lymphadenopathy and supple Resp normal respiratory effort and clear to auscultation bilaterally Auscultation: Negative for rales, rhonchi or wheezes Cardio regular rate, regular rhythm, S1 normal heart sound, S2 normal heart sound and no murmurs GI non-tender, non-distended and no masses Auscultation: normoactive bowel sounds Palpation: soft Rectal Exam: Negative for tenderness no CVA tenderness Penis: normal penis Back/Spine no CVA tenderness Extremity normal to inspection General Extremety ED: Negative for edema or tenderness General Extremity: Negative for edema Neuro oriented x3 Sensorium / Orientation: alert, oriented to person, oriented to place and oriented to time Psych mental status grossly normal Appearance: Negative for unkempt Skin Lesions: no lesions Rashes: no rashes MDM MDM MDM Narrative Medical decision making narrative: Middle-age male with hydrocephalus with chronic indwelling Bowman catheter secondary urinary tension. The catheter is obstructed. Nursing will change the catheter he will be reassessed and most likely discharged home. Nurse placed a 16 Khmer Bowman catheter he had good output. The urine is primarily clear with sediment. UA was sent and shows 5-10 reds and 5-10 white cells with only rare bacteria no nitrates. I am not going to put him on an antibiotic at this time. A culture was sent if that shows significant growth then he would need to be treated. I discussed all this with the patient he is doing well on repeat exam at 12:15 PM will be discharged home. Lab Data Labs: Laboratory Results - last 24 hr 09/12/21 11:35 Urine Color Yellow Urine Clarity Clear Urine pH 7.0 Ur Specific Wheeler 1.010 Urine Protein 100 H Urine Glucose (UA) Normal Urine Ketones Negative Urine Occult Blood 250 H Urine Nitrite Negative Urine Bilirubin Negative Urine Urobilinogen Normal Ur Leukocyte Esterase 500 H Urine RBC 5-10 SEEN Urine WBC 5-10 SEEN Ur Squamous Epith Cells 0 SEEN Urine Bacteria RARE Urine Mucus 0 SEEN Discharge Plan Triage Chief Complaint: Bowman C/O ED Provider: Mark Thomas Dx/Rx/DC Orders Clinical Impression: Complication of Bowman catheter Instructions: ED Bowman Catheter, Care Prescriptions: No Action Metamucil 3.4 gram/5.4 gram powder 1 tbsp PO DAILY PRNRF: 0 baclofen 5 MG tablet 5 mg PO TID RF: 0 Linzess 72 mcg capsule 72 mcg PO QHS RF: 0 cefdinir 300 mg capsule 300 mg PO BID 3 Days Qty: 6 RF: 0 pantoprazole 40 mg tablet,delayed release (DR/EC) 40 mg PO BID 30 Days Qty: 60 RF: 0 metoclopramide HCl [Reglan] 5 mg tablet 5 mg PO .qid 30 Days Qty: 120 RF: 0 azithromycin 250 mg tablet 250 mg PO DAILY 14 Days Qty: 14 RF: 0 Primary Care Provider: Lyndon Sanders Referrals: Lyndon Sanders MD [Primary Care Provider] - As Needed Activity Restrictions/Additional Instructions: Follow-up with your doctors as needed. If your Bowman catheter is not draining you follow-up with them or return to the emergency department. Disposition Disposition: Home, Self Care
[2021-09-12 11:58] LABS: Mucous, Urine 0 SEEN /hpf (<or=2+); Squamous Epithelial Cells - UA 0 SEEN /hpf (0-5)
[2021-09-12 12:01] LABS: Color, Urine Yellow (Yellow); Glucose, Dipstick Normal (Normal); Ketone-Dipstick Negative (Negative); Leukocyte Esterase-Dipstick 500 /ul (Negative); Nitrite-Dipstick Negative (Negative); Occult Blood-Urine 250 /ul (Negative); Protein-Dipstick 100 mg/dl (Negative); Urine Bilirubin Dipstick Negative (Negative); Urine Clarity Clear (Clear); Urine Urobilinogen Normal (Normal)
[2021-09-12 12:07] LABS: Bacteria RARE /hpf (None Seen); Red Blood Cells-Urine 5-10 SEEN /hpf (0-5); White Blood Cells 5-10 SEEN /hpf (0-5)
--- NOTE | 2021-09-12 12:34 | ED.RN ---
Assist x2 into W/C without difficulty.
== END 2021-09-12 12:35 | disposition home or self-care (01) ==
PROVIDERS: Emergency Provider Emergency Medicine; PCP Family Medicine
DX: T83.091A Other mechanical complication of indwelling urethral catheter, initial encounter (principal); R33.9 Retention of urine, unspecified; G91.9 Hydrocephalus, unspecified
CPT/HCPCS: 51702; 81001; 87077; 87086; 87088; 87186; 99284

== ENCOUNTER 2021-11-17 10:26 | Emergency (ER) | payer MEDICARE, MEDICAID, SELFPAY ==
[2021-11-17 10:27] VITALS: BP 132/89; PULSE 107; RESP 18; TEMP 37.1; O2SAT 96; BMI 23.0
--- NOTE | 2021-11-17 12:33 | EX.ED.DYSGE1 ---
HPI History of Present Illness Chief Complaint: Complaint Informant: patient and spouse/S.O. Onset/Context/Timing Onset: Yesterday Context: Gradual Onset Timing: Waxes and wanes Quality: plugged hannon Associated Symptoms Associated Symptoms: none Narrative Narrative: Patient has a chronic indwelling Hannon catheter for urinary retention. He has congenital hydrocephalus. Last night it started plugging and leaking around it subsequently. He has a changed every month and today is the day he is supposed to have it changed. Spouse states that she called the urology office multiple times this morning but could not get anybody to respond or to talk to, so she brought him to the ER. Patient states that he had some bladder fullness that made it feel like his bladder was full earlier, but he does not feel like that now. He denies any abdominal pain, nausea, vomiting, back pain, hematuria, he states he feels at baseline without any illness. [facility] Medical History Chronic indwelling Hannon catheter Gastroparesis Hydrocephalus Ileus Home Medications baclofen 5 mg PO TID 12/11/20 [History Last Taken 12/11/20] Linzess 72 mcg PO QHS 07/31/21 [History Last Taken Unknown] cefdinir 300 mg PO BID 3 Days #6 cap 08/06/21 [Rx Last Taken Unknown] pantoprazole 40 mg PO BID 30 Days #60 tab 08/06/21 [Rx Last Taken Unknown] azithromycin 250 mg PO DAILY 14 Days #14 tab 08/07/21 [Rx Last Taken Unknown] metoclopramide HCl [Reglan] 5 mg PO .qid 30 Days #120 tab 08/07/21 [Rx Last Taken Unknown] psyllium husk 3.4 gram/5.4 gram oral powder 1 tbsp PO DAILY PRN 08/20/21 [History Last Taken Unknown] Allergy/AdvReac Type Severity Reaction Status Date / Time Iodinated Contrast Media Allergy Anaphylaxis Verified 11/17/21 10:26 [Iodinated Contrast Media - IV Dye] nitrofurantoin AdvReac Upset Verified 11/17/21 10:26 Stomach Family History Other Cancer Heart disease Peptic ulcer disease Surgical History S/P [employer] shunt Social History Smoking Status: Never smoker ROS ROS ED Constitutional Constitutional ED: Denies chills or fever(s) Eyes Eyes: Denies change in vision or diplopia ENT ENT ED: Denies rhinorrhea or sore throat Cardiovascular Cardiovascular: Denies chest pain or palpitations Respiratory/Chest Respiratory/Chest: Denies cough or dyspnea Gastrointestinal Gastrointestinal: Denies abdominal pain, diarrhea, nausea or vomiting Genitourinary Genitourinary ED: Reports as per HPI; Denies flank pain or hematuria Musculoskeletal Musculoskeletal: Denies back pain or neck pain Integumentary Denies abscess or rash Psychiatric Psychiatric: Denies anxiety or suicidal thoughts EXAM Physical Exam Const Vital Signs: 11/17/21 10:27 Temperature 98.8 F Temperature Source Temporal Pulse Rate 107 H Respiratory Rate 18 Blood Pressure 132/89 H Blood Pressure Mean 103 Pulse Ox 96 Oxygen Delivery Method Room Air Positive well nourished and well developed General Appearance ED: well developed and NAD HEENT Reports moist mucous membranes normocephalic and atraumatic Eyes PERRL and EOMs intact bilaterally Resp normal respiratory effort and clear to auscultation bilaterally Cardio regular rate, regular rhythm and no murmurs GI non-tender and non-distended Auscultation: normoactive bowel sounds Palpation: soft Narrative: Hannon catheter in place in the penis which is normal-appearing, there is no urine flowing out of the catheter, the urine noticed in the bag is very small in amount and cloudy. No blood. Back/Spine no CVA tenderness Neuro oriented x3 Sensorium / Orientation: awake and alert Skin no rashes or lesions noted and no wounds MDM MDM MDM Narrative Medical decision making narrative: Nurses swapped out his Hannon for a clean sterile 16 Kosovan, with good urine output. Sent for culture, and discharged home with appropriate instructions. Discharge Plan Triage Chief Complaint: Complaint ED Provider: Bennett Olivarez Dx/Rx/DC Orders Clinical Impression: Complication, blocked Hannon catheter Instructions: ED Hannon Catheter, Care Prescriptions: No Action Metamucil 3.4 gram/5.4 gram powder 1 tbsp PO DAILY PRNRF: 0 baclofen 5 MG tablet 5 mg PO TID RF: 0 Linzess 72 mcg capsule 72 mcg PO QHS RF: 0 cefdinir 300 mg capsule 300 mg PO BID 3 Days Qty: 6 RF: 0 pantoprazole 40 mg tablet,delayed release (DR/EC) 40 mg PO BID 30 Days Qty: 60 RF: 0 metoclopramide HCl [Reglan] 5 mg tablet 5 mg PO .qid 30 Days Qty: 120 RF: 0 azithromycin 250 mg tablet 250 mg PO DAILY 14 Days Qty: 14 RF: 0 Primary Care Provider: Lyndon Sanders Referrals: Lyndon Sanders MD [Primary Care Provider] - (Or urologist as needed. We did send a urine culture which is pending and will return in 3 days or so.) Disposition Disposition: Home, Self Care
[2021-11-17 13:01] VITALS: BP 144/92; PULSE 86; RESP 17; O2SAT 94
== END 2021-11-17 13:01 | disposition home or self-care (01) ==
PROVIDERS: Emergency Provider Emergency Medicine; PCP Family Medicine; Visit Provider Emergency Medicine
DX: T83.091A Other mechanical complication of indwelling urethral catheter, initial encounter (principal); Q03.9 Congenital hydrocephalus, unspecified; R33.9 Retention of urine, unspecified; X58.XXXA Exposure to other specified factors, initial encounter
CPT/HCPCS: 51702; 87077; 87086; 87088; 87186; 99283

== ENCOUNTER 2021-12-12 12:43 | Emergency (ER) | payer MEDICARE, MEDICAID, SELFPAY ==
--- NOTE | 2021-12-12 16:22 | EDS_ITS ---
DATE OF SERVICE 12/12/21 CHIEF COMPLAINT: Bowman catheter placement. HISTORY OF PRESENT ILLNESS: The patient is a 56-year-old male who presents with urinary retention. The patient has a chronic indwelling Bowman catheter. The patient and family report that this has not been draining and needs to be replaced. The patient has some pressure in his suprapubic area. The patient states that it has gradually gotten worse throughout the day. The patient denies any fevers or chills. PAST MEDICAL HISTORY: Hydrocephalus. PAST SURGICAL HISTORY: DIRECTOR MEDICAL ECONOMICS shunt and multiple revisions as well as hamstring surgery. MEDICATIONS: Baclofen, Linzess and Metamucil. ALLERGIES: IVP dye and Macrobid. SOCIAL HISTORY: The patient lives at home. The patient denies any smoking, alcohol or drug use. REVIEW OF SYSTEMS: GENERAL: The patient denies fever or chills. EYES: The patient denies diplopia or blurry vision. ENT: The patient denies sore throat or rhinorrhea. CARDIOVASCULAR: The patient denies chest pain or palpitations. RESPIRATORY: The patient denies shortness of breath or cough. GI: The patient denies any nausea or vomiting. MUSCULOSKELETAL: The patient denies any neck pain or back pain. SKIN: The patient denies rashes or abscess. NEUROLOGIC: The patient denies headaches. NEUROLOGIC: The patient denies headaches. The patient admits to general weakness due to hydrocephalus. ALLERGIES: The patient denies any hives or swelling. PHYSICAL EXAMINATION: GENERAL: The patient is in no acute distress. VITAL SIGNS: Stable. Afebrile. HEENT: Oral mucosa is pink and moist. NECK: Supple. There is no JVD or lymphadenopathy. LUNGS: Clear and equal bilaterally. HEART: Regular rate and rhythm. ABDOMEN: Soft, nontender. NEUROLOGIC: Cranial nerves II-XII are intact. The patient is awake, alert and oriented x3. The patient has chronic weakness. There are no new focal motor or sensory deficits. DIAGNOSTIC DATA: Urinalysis shows leukocyte esterase of 500 and occult blood of 250. There were positive nitrites with 10-15 WBC and 2+ bacteria. Urine culture was ordered. EMERGENCY DEPARTMENT COURSE AND MEDICAL DECISION MAKING: A Bowman catheter was placed. The patient felt better after this was placed. There were 450 mL urine removed immediately. IMPRESSION: Urinary retention. Urinary tract infection. DISPOSITION/PLAN: The family states that the patient normally does well with Bactrim or Keflex. The patient was given a prescription for Keflex. The patient was given a dose here. The patient was instructed to follow up with his primary care physician in 5-7 days. The patient and family understood and were agreeable with the plan. All questions were answered. The patient was discharged in stable condition.
[2021-12-12 20:26] LABS: Mucous, Urine 0 SEEN /hpf (<or=2+); Red Blood Cells-Urine 0 SEEN /hpf (0-5); Squamous Epithelial Cells - UA 0 SEEN /hpf (0-5)
[2021-12-13 09:04] LABS: Color, Urine Yellow (Yellow)
[2021-12-13 09:05] LABS: Bacteria 2+ /hpf (None Seen); Glucose, Dipstick NEGATIVE (Normal); Ketone-Dipstick Negative (Negative); Leukocyte Esterase-Dipstick 500 /ul (Negative); Nitrite-Dipstick Positive (Negative); Occult Blood-Urine 250 /ul (Negative); Protein-Dipstick 30 mg/dl (Negative); Specific Gravity, Urine 1.015 (1.002-1.030); Urine Bilirubin Dipstick Negative (Negative); Urine Clarity Cloudy (Clear); Urine Urobilinogen Normal (Normal); White Blood Cells 10-25 SEEN /hpf (0-5)
== END 2021-12-12 16:48 | disposition home or self-care (01) ==
LOC: ED 12-15 06:45
PROVIDERS: Emergency Provider Emergency Medicine; PCP Family Medicine; Referring Provider Emergency Medicine; Visit Provider Emergency Medicine
DX: R33.9 Retention of urine, unspecified (principal); N39.0 Urinary tract infection, site not specified
CPT/HCPCS: 51702; 81001; 87077; 87086; 87088; 87186; 99285

== ENCOUNTER 2021-12-26 17:56 | Emergency (ER) | payer MEDICARE, MEDICAID, SELFPAY ==
[2021-12-26 17:56] VITALS: BP 148/91; PULSE 94; RESP 14; TEMP 36.4; O2SAT 98; BMI 22.2
[2021-12-26 17:58] VITALS: BP 148/91; PULSE 94; RESP 14; TEMP 36.4; O2SAT 98
--- NOTE | 2021-12-26 18:18 | EX.ED.DYSGE1 ---
HPI History of Present Illness Chief Complaint: Bowman C/O Narrative Narrative: Patient is a 56-year-old male with neurogenic bladder who has a chronic indwelling Bowman. Patient and state that they noticed some sediment coming through the Bowman catheter over the past few days. states she flushed it yesterday hoping to clear any sediment out however about 3 to 4 hours prior to arrival the catheter stopped flowing and therefore she removed it and reported there was sediment on the end of it. Since removal the patient has a painful distended abdomen concerning for urinary retention and therefore was brought in for possible Bowman catheter replacement. [facility] Medical History Chronic indwelling Bowman catheter Gastroparesis Hydrocephalus Ileus Home Medications baclofen 5 mg PO TID 12/11/20 [History Last Taken 12/11/20] Linzess 72 mcg PO QHS 07/31/21 [History Last Taken Unknown] cefdinir 300 mg PO BID 3 Days #6 cap 08/06/21 [Rx Last Taken Unknown] pantoprazole 40 mg PO BID 30 Days #60 tab 08/06/21 [Rx Last Taken Unknown] azithromycin 250 mg PO DAILY 14 Days #14 tab 08/07/21 [Rx Last Taken Unknown] metoclopramide HCl [Reglan] 5 mg PO .qid 30 Days #120 tab 08/07/21 [Rx Last Taken Unknown] psyllium husk 3.4 gram/5.4 gram oral powder 1 tbsp PO DAILY PRN 08/20/21 [History Last Taken Unknown] Allergy/AdvReac Type Severity Reaction Status Date / Time Iodinated Contrast Media Allergy Anaphylaxis Verified 12/26/21 17:58 [Iodinated Contrast Media - IV Dye] nitrofurantoin AdvReac Upset Verified 12/26/21 17:58 Stomach Family History Other Cancer Heart disease Peptic ulcer disease Surgical History 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 Social History Smoking Status: Never smoker ROS ROS ED Constitutional Constitutional ED: Denies chills or fever(s) ENT ENT ED: Denies sore throat Cardiovascular Cardiovascular: Denies chest pain Respiratory/Chest Respiratory/Chest: Denies cough or dyspnea Gastrointestinal Gastrointestinal: Reports abdominal pain; Denies diarrhea, nausea or vomiting Genitourinary Genitourinary ED: Reports other Details: Positive urinary retention Musculoskeletal Musculoskeletal: Denies myalgias Integumentary Denies rash Neurologic Neurologic: Denies headache(s) Hematologic/Lymphatic Hematologic/Lymphatic: Denies easy bleeding or easy bruising EXAM Physical Exam Const Vital Signs: 12/26/21 17:56 12/26/21 17:58 Temperature 97.5 F L 97.5 F L Temperature Source Temporal Temporal Pulse Rate 94 94 Respiratory Rate 14 14 Blood Pressure 148/91 H 148/91 H Blood Pressure Mean 110 110 Pulse Ox 98 98 Oxygen Delivery Method Room Air Positive well nourished and well developed General Appearance ED: well developed HEENT Reports moist mucous membranes Eyes PERRL and EOMs intact bilaterally Neck supple Resp normal respiratory effort and clear to auscultation bilaterally Cardio regular rate and regular rhythm GI GI Narrative: Patient has mild distention and pain on palpation in the lower midline abdomen consistent with a distended bladder otherwise no voluntary guarding or rigidity or pulsatile mass Auscultation: normoactive bowel sounds Palpation: soft Narrative: Normal circumcised male with no blood or discharge from the urethral meatus no testicular masses or swelling noted. Extremity normal to inspection Neuro oriented x3 and CN's II-XII intact bilaterally Sensorium / Orientation: alert Motor Exam: strength 5/5 throughout Psych mental status grossly normal Skin no rashes or lesions noted MDM MDM MDM Narrative Medical decision making narrative: Patient presented to the ER hypertensive but otherwise with stable vitals. His history and exam is consistent with acute urinary retention. A Bowman catheter was placed in the ER and began draining clear yellow urine and his abdominal pain and distention resolved. He reported this is only been ongoing for a few hours and therefore my concern for obstructive nephropathy leading to acute kidney injury is low and not feel there is need for blood work or urine sample at this time. Therefore now that the catheter has been replaced and is draining well and patient symptoms have resolved he is safe for discharge. Discharge Plan Triage Chief Complaint: Bwoman C/O ED Provider: Abdirahman Jones Dx/Rx/DC Orders Clinical Impression: Urinary catheter (Bowman) change required Instructions: ED Bowman Catheter, Care Prescriptions: No Action Metamucil 3.4 gram/5.4 gram powder 1 tbsp PO DAILY PRNRF: 0 baclofen 5 MG tablet 5 mg PO TID RF: 0 Linzess 72 mcg capsule 72 mcg PO QHS RF: 0 cefdinir 300 mg capsule 300 mg PO BID 3 Days Qty: 6 RF: 0 pantoprazole 40 mg tablet,delayed release (DR/EC) 40 mg PO BID 30 Days Qty: 60 RF: 0 metoclopramide HCl [Reglan] 5 mg tablet 5 mg PO .qid 30 Days Qty: 120 RF: 0 azithromycin 250 mg tablet 250 mg PO DAILY 14 Days Qty: 14 RF: 0 Primary Care Provider: Lyndon Sanders Referrals: Lyndon Sanders MD [Primary Care Provider] - Disposition Disposition: Home, Self Care Discharge Date/Time: 12/26/21 18:28
== END 2021-12-26 18:28 | disposition home or self-care (01) ==
LOC: ED 18:22
PROVIDERS: Emergency Provider Emergency Medicine; PCP Family Medicine; Visit Provider Emergency Medicine
DX: T83.9XXA Unspecified complication of genitourinary prosthetic device, implant and graft, initial encounter (principal); X58.XXXA Exposure to other specified factors, initial encounter; Z79.899 Other long term (current) drug therapy
CPT/HCPCS: 51702; 99283

== ENCOUNTER 2022-01-10 05:35 | Emergency (ER) | payer MEDICARE, MEDICAID, SELFPAY ==
[2022-01-10 05:36] VITALS: BP 162/102; PULSE 84; RESP 16; TEMP 36.2; O2SAT 97; BMI 23.3
[2022-01-10 06:25] LABS: Mucous, Urine 0 SEEN /hpf (<or=2+); Squamous Epithelial Cells - UA 0 SEEN /hpf (0-5)
--- NOTE | 2022-01-10 06:26 | EX.ED.GUMALE ---
HPI History of Present Illness Chief Complaint: Bowman C/O Narrative Narrative: 56-year-old male presenting for Bowman catheter. Patient does normally have an indwelling Bowman catheter. His sister is able to put in a Bowman catheter however she did not have a spare. She took out the old Bowman catheter because it was blocked. She was able to straight catheterize him twice overnight and he did have 250 to 300 cc each time. She states he is otherwise at baseline. [facility] Medical History Chronic indwelling Bowman catheter Gastroparesis Hydrocephalus Ileus Home Medications baclofen 5 mg PO TID 12/11/20 [History Last Taken 12/11/20] Linzess 72 mcg PO DAILY 07/31/21 [History Last Taken Unknown] ciprofloxacin HCl [Cipro] 500 mg PO BID #13 tab 01/10/22 [Rx Last Taken Unknown] Allergy/AdvReac Type Severity Reaction Status Date / Time Iodinated Contrast Media Allergy Anaphylaxis Verified 01/10/22 05:43 [Iodinated Contrast Media - IV Dye] nitrofurantoin AdvReac Upset Verified 01/10/22 05:43 Stomach Family History Other Cancer Heart disease Peptic ulcer disease Surgical History S/P 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 shunt Social History Smoking Status: Never smoker ROS ROS ED Constitutional Constitutional ED: Denies fever(s) or sweats Eyes Eyes: Denies blurry vision ENT ENT ED: Denies rhinorrhea or sore throat Cardiovascular Cardiovascular: Denies chest pain or palpitations Respiratory/Chest Respiratory/Chest: Denies cough, dyspnea or sputum Gastrointestinal Gastrointestinal: Denies nausea or vomiting Genitourinary Genitourinary ED: Reports other Musculoskeletal Musculoskeletal: Denies myalgias or neck pain Integumentary Denies rash Neurologic Neurologic: Denies headache(s) EXAM Physical Exam Const Vital Signs: 01/10/22 05:36 01/10/22 06:57 Temperature 97.2 F L Temperature Source Temporal Pulse Rate 84 75 Respiratory Rate 16 17 Blood Pressure 162/102 H 133/76 H Blood Pressure Mean 122 95 Pulse Ox 97 97 Oxygen Delivery Method Room Air Room Air Positive well nourished General Appearance ED: NAD; Negative for pallor HEENT normocephalic and atraumatic Eyes PERRL and EOMs intact bilaterally Cardio regular rate and regular rhythm GI non-tender and non-distended Palpation: soft Neuro oriented x3 and CN's II-XII intact bilaterally Sensorium / Orientation: alert Skin General Skin Exam: Negative for jaundice or pallor MDM MDM MDM Narrative Medical decision making narrative: Patient had Bowman catheter placed. Urine appears to be clear to yellow. It is not dark. Urinalysis is positive for infection with positive nitrites, 500 leukocyte esterase, 3+ bacteria. I reviewed the patient's last blood culture from November which was sensitive to Cipro and Bactrim. His sister felt he would have better results with Cipro as she cares for him. Cipro will be provided with the first dose in the ER. Impression: 1. Urinary retention 2. UTI Lab Data Attestation: I reviewed the patient's lab results. Labs: Laboratory Results - last 24 hr 01/10/22 06:21 Urine Color Yellow Urine Clarity Clear Urine pH 7.0 Ur Specific [place] 1.010 Urine Protein 30 H Urine Glucose (UA) Normal Urine Ketones Negative Urine Occult Blood 10 H Urine Nitrite Positive H Urine Bilirubin Negative Urine Urobilinogen Normal Ur Leukocyte Esterase 500 H Urine RBC 0-5 SEEN Urine WBC 10-25 SEEN Ur Squamous Epith Cells 0 SEEN Urine Bacteria 3+ Urine Mucus 0 SEEN Discharge Plan Triage Chief Complaint: Bowman C/O ED Provider: Rivera Dodge Dx/Rx/DC Orders Instructions: ED Bowman Catheter, Care, ED Bladder Infection, Male (Adult) Prescriptions: New ciprofloxacin HCl [Cipro] 500 mg tablet 500 mg PO BID Qty: 13 RF: 0 No Action baclofen 5 MG tablet 5 mg PO TID RF: 0 Linzess 72 mcg capsule 72 mcg PO DAILY RF: 0 Primary Care Provider: Lyndon Sanders Referrals: Lyndon Sanders MD [Primary Care Provider] - Disposition Disposition: Home, Self Care
[2022-01-10 06:39] LABS: Color, Urine Yellow (Yellow); Glucose, Dipstick Normal (Normal); Ketone-Dipstick Negative (Negative); Leukocyte Esterase-Dipstick 500 /ul (Negative); Nitrite-Dipstick Positive (Negative); Occult Blood-Urine 10 /ul (Negative); Protein-Dipstick 30 mg/dl (Negative); Urine Bilirubin Dipstick Negative (Negative); Urine Clarity Clear (Clear); Urine Urobilinogen Normal (Normal)
[2022-01-10 06:55] LABS: Bacteria 3+ /hpf (None Seen); Red Blood Cells-Urine 0-5 SEEN /hpf (0-5); White Blood Cells 10-25 SEEN /hpf (0-5)
[2022-01-10 06:57] VITALS: BP 133/76; PULSE 75; RESP 17; O2SAT 97
[2022-01-10] MEDS: Ciprofloxacin 500 MG Tablet PO (07:11)
== END 2022-01-10 07:22 | disposition home or self-care (01) ==
PROVIDERS: Emergency Provider Student in an Organized Health Care Education/Training Program; PCP Family Medicine; Visit Provider Student in an Organized Health Care Education/Training Program
DX: R33.9 Retention of urine, unspecified (principal); N39.0 Urinary tract infection, site not specified; Z79.899 Other long term (current) drug therapy
CPT/HCPCS: 51702; 81001; 87077; 87086; 87088; 87186; 99284

== ENCOUNTER 2022-01-19 07:38 | Inpatient (IN) | payer MEDICARE, MEDICAID, SELFPAY ==
[2022-01-19] VITALS (8 sets, daily range): BP systolic 125–158; BP diastolic 7–103; PULSE 88–108; RESP 14–20; TEMP 36.7–37.5; O2SAT 94–98; BMI 22.1; BMI 23.7
--- NOTE | 2022-01-19 08:00 | CT_ITS ---
STUDY: CT ABDOMEN AND PELVIS WITHOUT CONTRAST REASON FOR EXAM: Male, 56 years old. Nausea and vomiting. Decreased urinary output. History of gastric mass. Myelodysplastic syndrome. RADIATION DOSAGE (If Supplied By Facility): CTDIvol = ( 6.40 ) mGy, DLP = ( 354.49 ) mGycm TECHNIQUE: Transaxial images were obtained from the dome of the diaphragm to the symphysis pubis without oral contrast, and without intravenous contrast. Sagittal and coronal images were reconstructed. Individualized dose optimization techniques were used for this CT. COMPARISON: Comparison is made with prior study dated 07/31/2021. FINDINGS: Stable 7 mm noncalcified nodule in the posterior medial segment of the left lower lobe. The visualized portions of the heart are within normal limits. Normal liver. Normal gallbladder and extrahepatic biliary system. Normal spleen. Normal pancreas. Normal bilateral adrenal glands. Normal right kidney. 5 mm nonobstructive calculus in the midpole calyx of the left kidney. There is a 1.7cm x 2.4 cm calculus in the distal portion of the right ureter. This has increased in size as compared to prior study. There is marked degree of distention of the stomach with residual fluid and food particles. There are dilated loops of the small intestine with a non-distended colon consistent with a small bowel obstruction. The transition point is in the mid portion of the ileum. Normal colon. The appendix is visualized and appears normal. Normal abdominal aorta. Normal inferior vena cava. Normal retroperitoneum. A SILVA catheter is seen within the urinary bladder. Diffuse bladder wall thickening. Multiple calculi are seen at the base of the bladder. A catheter is seen within the abdomen with the tip in the pelvis most likely representing a ventriculoperitoneal shunt tube. Small bilateral inguinal hernias more prominent on the left side. There are degenerative changes of the visualized lumbar spine. Mild dextroscoliosis. 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 CT/Abdomen/Pelvis without Cont IMPRESSION: Small bowel obstruction with the transition point in the mid ileum. Gastric distention. Multiple bladder calculi. Large calculus at the distal aspect of the right ureter. Electronically Signed: Kingsley Butler MD at 9:19 EST ,
--- NOTE | 2022-01-19 08:02 | EDS_ITS ---
HPI History of Present Illness Chief Complaint: Abd Pain Narrative Narrative: Patient with past medical history of congenital hydrocephalus, has chronic indwelling Bowman catheter, presents with his sister who is his caregiver for decreased urine output and abdominal pain. He has problems with constipation and in the past had problems with ileus. She states that he had a large bowel movement yesterday evening. She noticed that there was less drainage from his Bowman catheter and he has had problems with sediment, so she irrigated his Bowman last evening with 30 mL, then again this morning. She states there is only a small amount in the bag from 10 hours ago. She states that she also did not hear bowel sounds last evening, but this morning had he had bowel sounds in his right lower quadrant. He is nauseated but vomited once when he got here to the emergency department. No fevers or chills. No other symptoms. They are concerned because of his low urine output and his previous problems with ileus and constipation for which she was hospitalized for a week during the pandemic, while they were awaiting transfer to [facility] that never happened. [facility] Medical History Chronic indwelling Bowman catheter Gastroparesis Hydrocephalus Ileus Home Medications baclofen 5 mg PO TID 12/11/20 [History Last Taken 12/11/20] Linzess 72 mcg PO DAILY 07/31/21 [History Last Taken Unknown] ciprofloxacin HCl [Cipro] 500 mg PO BID #13 tab 01/10/22 [Rx Last Taken Unknown] Allergy/AdvReac Type Severity Reaction Status Date / Time Iodinated Contrast Media Allergy Anaphylaxis Verified 01/19/22 07:38 [Iodinated Contrast Media - IV Dye] nitrofurantoin AdvReac Upset Verified 01/19/22 07:38 Stomach Family History Other Cancer Heart disease Peptic ulcer disease Surgical History 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 HEENT: No sore throat. No neck pain. No loss of vision. No rhinorrhea. Cardiovascular: No chest pain. No palpitations. No pedal edema. Respiratory: No cough, no shortness of breath. Abdominal: Diffuse abdominal pain. Positive nausea. Positive vomiting x1. Genitourinary: No dysuria. No hematuria. Decreased urine output. He does have history of urinary retention. Musculoskeletal: No myalgias. No arthralgias. Neurologic: No headaches. No dizziness. No lightheadedness. Skin: No rash. No change in color. Psychiatric: No depression. No anxiety. EXAM Physical Exam Narrative Exam Narrative: Afebrile. Vital signs noted. HEENT: Atraumatic. PERRL, EOMI. Neck soft and supple. No point tenderness or step off. Cardiovascular: Regular rate and rhythm. No murmurs, rubs, or gallops apprecia benjy. Respiratory: No tachypnea. Lungs clear to auscultation bilaterally. Gastrointestinal: Abdomen soft, nontender, with decreased to normal bowel sounds. No rebound or guarding. Neurological: Awake. Alert. Nonfocal, nonlateralizing. Skin: No rash. Normal color. No pallor. Musculoskeletal: No pedal edema. Full range of motion extremities. Genitourinary: Indwelling Bowman catheter noted with approximately 300 cc of yellow to red urine noted in bag. Const Vital Signs: 01/19/22 07:39 01/19/22 10:34 01/19/22 11:19 Temperature 98.6 F Temperature Source Temporal Pulse Rate 104 H 97 88 Respiratory Rate 16 14 20 H Respiratory Pattern Normal Blood Pressure 158/98 H 155/103 H Blood Pressure Mean 118 120 Pulse Ox 96 96 Oxygen Delivery Method Room Air Room Air 01/19/22 14:31 01/19/22 14:33 Temperature Temperature Source Pulse Rate 93 93 Respiratory Rate 17 17 Respiratory Pattern Blood Pressure 125/7 H 125/73 H Blood Pressure Mean 46 90 Pulse Ox 94 94 Oxygen Delivery Method Room Air Room Air MDM MDM MDM Narrative Medical decision making narrative: I reviewed his prior records. I have seen the patient in the past and remember his problems with constipation and fecal impactions. He has recently been seen for urinary retention. I will have the RN perform a bladder scan and irrigate his Bowman. To investigate his decreased urine output I will obtain basic laboratory work. Given his reported ileus, although he has bowel sounds now, I will image his abdomen to ensure that he does not have a bowel obstruction. He is allergic to IV contrast. Patient has an elevated white count of 16.9, hemoglobin normal at 16.0. Platelet count slightly elevated at 475. He does appear dehydrated with a sodium of 124 and a chloride of 87. BUN is elevated at 20 with a normal creatinine of 1.18. His urinalysis shows no infection there are 5-10 white cells and 0-5 squamous epithelial cells with calcium oxalate crystals, but I do feel that with his indwelling Bowman catheter that this is most likely his baseline. He does have urine ketones. I do not feel that he requires emergent antibiotics. CT of the abdomen and pelvis without contrast does show what appears to be a small bowel obstruction with transition point in the mid ileum. NG tube was placed. In discussion with the patient and his sister who is his caregiver they would like to be transferred to the [facility] based on his multiple medical problems. I discussed the patient with Dr. Ash who has accepted him in transfer. NG tube was placed and KUB shows that the tip of the NG tube is in the body of the stomach. Patient is currently awaiting transfer. Should the weight be prolonged, he will be admitted here again for small bowel obstruction. Currently, he is in stable condition. He will be signed out to the oncoming physician, Dr. Damian Thomas, to make final disposition on this patient. He is in stable condition. Lab Data Labs: Laboratory Results - last 24 hr 01/19/22 01/19/22 01/19/22 08:00 08:00 08:50 WBC 16.9 H RBC 5.49 Hgb 16.0 Hct 47.0 MCV 85.6 MCH 29.1 MCHC 34.0 RDW Std Deviation 39.8 RDW Coeff of [place] 12.8 Plt Count 475 H MPV 11.0 Immature Gran % (Auto) 0.400 Neut % (Auto) 86.6 H Lymph % (Auto) 5.7 L [place] % (Auto) 7.2 Eos % (Auto) 0.0 Baso % (Auto) 0.1 Absolute Neuts (auto) 14.6 H Absolute Lymphs (auto) 0.96 Nucleated RBC % 0 Sodium 124 L Potassium 3.9 Chloride 87 L Carbon Dioxide 24.0 Anion Gap 13 BUN 20 H Creatinine 1.18 Estim Creat Clear Calc 57.39 Est GFR (MDRD) Af Amer 83 Est GFR (MDRD) Non-Af 68 BUN/Creatinine Ratio 16.9 Glucose 132 H Calcium 9.9 Urine Color Yellow Urine Clarity Sl. Cloudy Urine pH 6.0 Ur Specific [place] 1.015 Urine Protein 30 H Urine Glucose (UA) Normal Urine Ketones 15 H Urine Occult Blood 25 H Urine Nitrite Negative Urine Bilirubin Negative Urine Urobilinogen Normal Ur Leukocyte Esterase 500 H Urine RBC 0-5 SEEN Urine WBC 5-10 SEEN Ur Squamous Epith Cells 0-5 SEEN Calcium Oxalate Crystal RARE Urine Bacteria 1+ Urine Mucus 2+ Radiography Diagnostic Testing: Clinical Impression(s) from Imaging Studies Abdomen/Pelvis CT 01/19/22 08:00 IMPRESSION: Small bowel obstruction with the transition point in the mid ileum. Gastric distention. Multiple bladder calculi. Large calculus at the distal aspect of the right ureter. Electronically Signed: Kingsley Butler MD at 9:19 EST , KUB X-Ray 01/19/22 10:28 IMPRESSION: The tip of the NG tube is in the body of the stomach. Electronically Signed: Kingsley Butler MD at 12:12 EST , Discharge Plan Triage Chief Complaint: Abd Pain ED Provider: Josiah Schaffer Dx/Rx/DC Orders Prescriptions: No Action baclofen 5 MG tablet 5 mg PO TID RF: 0 Linzess 72 mcg capsule 72 mcg PO DAILY RF: 0 ciprofloxacin HCl [Cipro] 500 mg tablet 500 mg PO BID Qty: 13 RF: 0 Primary Care Provider: Lyndon Sanders
[2022-01-19] MEDS: 0.9% Normal Saline 1,000 ML 1000 ML IV (08:10)
[2022-01-19] MEDS: Ondansetron 4 MG/2 ML Vial IV (08:47)
[2022-01-19 08:54] LABS: Absolute Lymphocyte Count 0.96 X10^3/uL (0.83-4.51); Absolute Neutrophil Count 14.6 X10^3/uL (2.0-7.7); Basophil# 0.02 X10^3/uL; Basophil% 0.1 % (0-1); Lymphocyte # 0.96 X10^3/ul (0.83-4.51); Lymphocyte % 5.7 % (19-41); Mean Corpuscular Hgb 29.1 pg (27.0-32.0); Mean Corpuscular Volume 85.6 fL (80-94); Monocyte# 1.22 X10^3/uL; Monocyte% 7.2 % (0-10); NRBC Flagged by Analyzer 0 % (0-5); Neutrophil # 14.63 X10^3/uL (2.7-7.7); Neutrophil % 86.6 % (47-70); Platelet Count 475 K/mm3 (150-450); RBC Distribution Width CV 12.8 % (11.6-14.6); RBC Distribution Width SD 39.8 fl (35.1-43.9); Red Blood Count 5.49 M/mm3 (4.6-6.2); White Blood Count 16.9 K/mm3 (4.4-11.0)
[2022-01-19 08:56] LABS: Anion Gap 13 (5-15); BUN 20 mg/dL (7-18); BUN/Creat Ratio 16.9 RATIO (10-20); Calcium,Total 9.9 mg/dL (8.5-10.1); Chloride 87 mmol/L (98-107); Creatinine, Serum 1.18 mg/dL (0.70-1.30); EST Glomerular Filtration Rate 68 mL/min (>60); Est Glom Filt Rate - Afr Amer 83 mL/min (>60); Estimated Creatinine Clearance 57.39 ml/min; Glucose 132 mg/dL (74-106); Potassium 3.9 mmol/L (3.5-5.1); Sodium Level 124 mmol/L (136-145)
[2022-01-19 08:58] LABS: Color, Urine Yellow (Yellow); Glucose, Dipstick Normal (Normal); Ketone-Dipstick 15 mg/dl (Negative); Leukocyte Esterase-Dipstick 500 /ul (Negative); Nitrite-Dipstick Negative (Negative); Occult Blood-Urine 25 /ul (Negative); Protein-Dipstick 30 mg/dl (Negative); Specific Gravity, Urine 1.015 (1.002-1.030); Urine Bilirubin Dipstick Negative (Negative); Urine Clarity Sl. Cloudy (Clear); Urine Urobilinogen Normal (Normal)
[2022-01-19 09:17] LABS: Bacteria 1+ /hpf (None Seen); Calcium Oxalate Crystals Ur RARE /hpf (<or=2+); Mucous, Urine 2+ /hpf (<or=2+); Red Blood Cells-Urine 0-5 SEEN /hpf (0-5); Squamous Epithelial Cells - UA 0-5 SEEN /hpf (0-5); White Blood Cells 5-10 SEEN /hpf (0-5)
--- NOTE | 2022-01-19 10:28 | RAD_ITS ---
STUDY: X-RAY - ABDOMEN/PELVIS REASON FOR EXAM: Male, 56 years old. NG Insertion TECHNIQUE: Single AP view of the abdomen / pelvis. COMPARISON: None. FINDINGS: The tip of the NG tube is in the body of the stomach. A right-sided ventriculoperitoneal shunt tube is seen. RAD/Abdomen Single View (Portable) IMPRESSION: The tip of the NG tube is in the body of the stomach. Electronically Signed: Kingsley Butler MD at 12:12 EST ,
[2022-01-19] MEDS: Lidocaine 4% 5 ML Ampul 2 ML INHALATION (11:19)
[2022-01-19] MEDS: Oxymetazoline 0.05% 1 SPRAY SPRAY.BTL 2 SPRAY NASAL (11:30)
--- NOTE | 2022-01-19 17:07 | ED.RN ---
Dr Thomas aware that [facility] has an accepting Dr but no bed and no time to get a bed at this point
--- NOTE | 2022-01-19 17:09 | HP.PCM.HOS_ITS ---
HPI - General General Date of Admission: 01/19/22 HPI Narrative JIAN ALTAMIRANO, is a 56 M with a PMH as outlined who presents via the ED with a complaint of decreased urine output and abdominal pain. His sister is his primary senior resident care director and she noted that he had a large bowel movement the night before admission; she subsequently noted that he had limited urine output in his Cruz catheter; she irrigated it but he still had decreased urine output from the Cruz. He also had nausea and vomited x 1. Family was concerned about his low urine output and sister also said she didnt hear bowel sounds so she brought him to [facility] ED. He does have a history of gastroparesis and hydrocephalus and has an indwelling Cruz catheter. Vitals in the ED were BP of 144/91, WA of 105, RR of 15 and he was saturating at 98% on room air. CBC showed wbc of 16.9, Hb of 16 and platelets of 475. Chemistry showed sodium of 124 and chloride of 87 as well as Cr of 1.18. Urinalysis showed wbc of 5-10/wpf, and urine bacteria of 1+. CT abdomen showed small bowel obstruction with the transition point in the mid ileum with gastric distension and multiple bladder calculi with large calculus at the distal aspect of the right ureter. Family requested transfer to [facility], where he was accepted. However, per ED doctor, [facility] will not have a bed for him until at least tomorrow so he has been admitted pending transfer to [facility]. [facility] Medical History Chronic indwelling Cruz catheter Gastroparesis Hydrocephalus Ileus Home Medications baclofen 5 mg PO TID 12/11/20 [History Last Taken 12/11/20] Linzess 72 mcg PO DAILY 07/31/21 [History Last Taken Unknown] psyllium husk [Metamucil] 1 tbsp PO DAILY 01/19/22 [History Last Taken 01/17/22] Allergy/AdvReac Type Severity Reaction Status Date / Time Iodinated Contrast Media Allergy Anaphylaxis Verified 01/19/22 07:38 [Iodinated Contrast Media - IV Dye] nitrofurantoin AdvReac Upset Verified 01/19/22 07:38 Stomach Family History Other Cancer Heart disease Peptic ulcer disease Surgical History S/P [employer] shunt Social History Smoking Status: Never smoker ROS Constitutional Constitutional: Denies anorexia, change in weight, chills, fatigue, fever(s) or night sweats Eyes Eyes: Denies change in vision ENT HEENT: Denies dysphagia, hearing loss or nasal congestion Cardiovascular Cardiovascular: Denies chest pain, dyspnea on exertion, edema, lightheadedness, orthopnea, palpitations, paroxysmal nocturnal dyspnea or rapid heart rate Respiratory/Chest Respiratory/Chest: Denies cough, dyspnea, productive cough, shortness of breath at rest or shortness of breath with exertion Gastrointestinal Gastrointestinal: Reports abdominal pain and vomiting; Denies constipation, diarrhea, dyspepsia, hematemesis, hematochezia, loose stools, melena or nausea Genitourinary Genitourinary: Denies burning urination, dysuria, urinary frequency or urinary hesitancy Musculoskeletal Musculoskeletal: Denies arthralgias or joint pain Neurologic Neurologic: Denies confusion, disequilibrium, dizziness, focal weakness, seizures or syncope Psychiatric Psychiatric: Denies anxiety or depression Endocrine Endocrinology: Denies change in body appearance Hematologic/Lymphatic Hematologic/Lymphatic: Denies anemia Vital Signs Vital Signs Vital Signs: 01/19/22 07:39 01/19/22 10:34 01/19/22 11:19 Temperature 98.6 F Temperature Source Temporal Pulse Rate 104 H 97 88 Respiratory Rate 16 14 20 H Respiratory Pattern Normal Blood Pressure 158/98 H 155/103 H Blood Pressure Mean 118 120 Pulse Ox 96 96 Oxygen Delivery Method Room Air Room Air 01/19/22 14:31 01/19/22 14:33 01/19/22 17:04 Temperature Temperature Source Pulse Rate 93 93 105 H Respiratory Rate 17 17 15 Respiratory Pattern Blood Pressure 125/7 H 125/73 H 144/91 H Blood Pressure Mean 46 90 108 Pulse Ox 94 94 98 Oxygen Delivery Method Room Air Room Air Room Air Weight Weight: 125 lb Body Mass Index (BMI) 22.1 Physical Exam Const alert HEENT normocephalic and head/scalp atraumatic HEENT Narrative: Dry oral mucosa Eyes PERRL and EOMs intact bilaterally Neck no lymphadenopathy Resp normal respiratory effort, no retractions, no use of accessory muscles and clear to auscultation bilaterally Cardio regular rate, regular rhythm, S1 normal heart sound, S2 normal heart sound and no murmurs GI normal to inspection, nondistended, normoactive bowel sounds and soft to palpation GI Narrative: minimal generalised tenderness, no guarding or rebound tenderness. NG tube in place Extremity normal to inspection Peripheral Pulses: Yes pulses 2+ throughout Skin no rashes or lesions noted Neuro oriented x3 and CN's II-XII intact bilaterally Sensorium / Orientation: awake and alert Psych affect normal Results Lab / Micro Data Result Diagrams: 01/19/22 08:00 01/19/22 08:00 Labs: Laboratory Results - last 24 hr 01/19/22 08:00: WBC 16.9 H, RBC 5.49, Hgb 16.0, Hct 47.0, MCV 85.6, MCH 29.1, MCHC 34.0, RDW Std Deviation 39.8, RDW Coeff of Frieda 12.8, Plt Count 475 H, MPV 11.0, Immature Gran % (Auto) 0.400, Neut % (Auto) 86.6 H, Lymph % (Auto) 5.7 L, [place] % (Auto) 7.2, Eos % (Auto) 0.0, Baso % (Auto) 0.1, Absolute Neuts (auto) 14.6 H, Absolute Lymphs (auto) 0.96, Nucleated RBC % 0 01/19/22 08:00: Sodium 124 L, Potassium 3.9, Chloride 87 L, Carbon Dioxide 24.0, Anion Gap 13, BUN 20 H, Creatinine 1.18, Estim Creat Clear Calc 57.39, Est GFR (MDRD) Af Amer 83, Est GFR (MDRD) Non-Af 68, BUN/Creatinine Ratio 16.9, Glucose 132 H, Calcium 9.9 01/19/22 08:50: Urine Color Yellow, Urine Clarity Sl. Cloudy, Urine pH 6.0, Ur Specific [place] 1.015, Urine Protein 30 H, Urine Glucose (UA) Normal, Urine Ketones 15 H, Urine Occult Blood 25 H, Urine Nitrite Negative, Urine Bilirubin Negative, Urine Urobilinogen Normal, Ur Leukocyte Esterase 500 H, Urine RBC 0-5 SEEN, Urine WBC 5-10 SEEN, Ur Squamous Epith Cells 0-5 SEEN, Calcium Oxalate Crystal RARE, Urine Bacteria 1+, Urine Mucus 2+ Micro: Microbiology 01/19/22 11:04 Nasal Secretion SARS-CoV-2 Antigen (Rapid) - Final Radiology Impression Abdomen/Pelvis CT 01/19/22 08:00 IMPRESSION: Small bowel obstruction with the transition point in the mid ileum. Gastric distention. Multiple bladder calculi. Large calculus at the distal aspect of the right ureter. Electronically Signed: Kingsley Butler MD at 9:19 EST , KUB X-Ray 01/19/22 10:28 IMPRESSION: The tip of the NG tube is in the body of the stomach. Electronically Signed: Kingsley Butler MD at 12:12 EST , Assessment & Plan Assessment/Plan (1) Small bowel obstruction: PLAN: #Small bowel obstruction * hasnt had any bowel movement today. Says he thinks he passed gas this morning * CT of the abdomen showed small bowel obstruction with transition point in the mid ileum. as well as multiple bladder calculi and large calculus at the dista l aspect of the right ureter * keep NPO. Hydrate with IVF * NG tube in place. place to continuous suction for now * awaiting transfer to [facility]. If patient deteriorates, will consult general surgery. * #History of gastroparesis * patient was seen in [facility] in July 2021 for nausea and vomiting; CT abdomen and pelvis showed small bowel distention as well as gastric distention with luminal narrowing and wall thickening of the gastric antrum suggestive of possible gastritis or mass. At that time, was recommended that he be transferred to [facility] but he never got a bed though he was accepted. He did have EGD during that admission which showed a normal esophagus, normal stomach and single duodenal polyp which was resected and retrieved. * Stable. Will monitor. #Multiple bladder calculi * has a chronic indwelling cruz catheter * UA showed evidence of UTI * he does have a mild fever also * will start on IV ceftriaxone and get urine cultures * #History of hydrocephalus s/p shunt: stable DVT prophylaxis: lovenox Charges/Coding Visit Charges Inpatient E&M: 19844 Init Hosp L3
[2022-01-19] MEDS: 0.9% Saline Lock 10 ML Syringe IV (19:50)
[2022-01-19] MEDS: 0.9% Normal Saline 1,000 ML 125 ML IV (19:51)
[2022-01-19] MEDS: Baclofen 10 MG Tablet 5 MG PO (21:48)
[2022-01-19] MEDS: Ketorolac 15 MG/ML Vial IV (21:48)
[2022-01-20 00:15] VITALS: BP 122/74; PULSE 91; RESP 18; TEMP 37.1; O2SAT 94
[2022-01-20] MEDS: Ceftriaxone 1 GM/50 ML BAG IV ×2 (01:15→21:08)
[2022-01-20] MEDS: 0.9% Normal Saline 1,000 ML 125 ML IV (03:51)
[2022-01-20 05:58] LABS: Absolute Lymphocyte Count 1.53 X10^3/uL (0.83-4.51); Absolute Neutrophil Count 12.1 X10^3/uL (2.0-7.7); Basophil# 0.02 X10^3/uL; Basophil% 0.1 % (0-1); Differential Indicated SCAN CRITERIA MET; Eosinophil# 0.03 X10^3/uL; Eosinophils% 0.2 % (0-5); Hematocrit 38.5 % (40-54); Hemoglobin 13.2 g/dL (13.0-16.5); Lymphocyte # 1.53 X10^3/ul (0.83-4.51); Lymphocyte % 9.9 % (19-41); Mean Corp Hgb Conc 34.3 g/dL (32-36); Mean Corpuscular Hgb 29.2 pg (27.0-32.0); Mean Corpuscular Volume 85.2 fL (80-94); Mean Platelet Vol. 10.1 fl (6.2-12.0); Monocyte# 1.77 X10^3/uL; Monocyte% 11.4 % (0-10); NRBC Flagged by Analyzer 0 % (0-5); Neutrophil # 12.11 X10^3/uL (2.7-7.7); POSITIVE DIFFERENTIAL YES; Platelet Count 359 K/mm3 (150-450); RBC Distribution Width SD 40.2 fl (35.1-43.9); Red Blood Count 4.52 M/mm3 (4.6-6.2); White Blood Count 15.5 K/mm3 (4.4-11.0)
[2022-01-20] MEDS: Baclofen 10 MG Tablet 5 MG PO ×3 (06:10→21:08)
[2022-01-20 06:15] VITALS: BP 125/71; PULSE 75; RESP 16; TEMP 36.7; O2SAT 94
[2022-01-20 06:22] LABS: Anion Gap 6 (5-15); BUN 24 mg/dL (7-18); BUN/Creat Ratio 30.8 RATIO (10-20); Calcium,Total 7.8 mg/dL (8.5-10.1); Chloride 95 mmol/L (98-107); Creatinine, Serum 0.78 mg/dL (0.70-1.30); EST Glomerular Filtration Rate 110 mL/min (>60); Est Glom Filt Rate - Afr Amer 134 mL/min (>60); Estimated Creatinine Clearance 87.13 ml/min; Glucose 113 mg/dL (74-106); Potassium 3.5 mmol/L (3.5-5.1); Sodium Level 130 mmol/L (136-145)
--- NOTE | 2022-01-20 07:15 | PCM.PN.HOSP ---
Subjective Subjective Patient has has congenital hydrocephalus status post [employer] shunt. History of seizure on antiepileptic medication. Patient also with bilateral lower extremity paresis on wheelchair. Contracture on both lower extremities with muscle atrophy. Objective Data Objective Data Vital Signs: Vital Signs Temp Pulse Resp BP Pulse Ox 98.1 F 75 16 125/71 H 94 01/20/22 06:15 01/20/22 06:15 01/20/22 06:15 01/20/22 06:15 01/20/22 06:15 Oxygen Delivery Method Room Air Weight: 133 lb 13.129 oz Body Mass Index (BMI) 23.7 Intake & Output: Intake and Output for Last 24 Hours 01/18/22 01/19/22 01/20/22 23:59 23:59 23:59 Intake Total 1025 / 1025 1075 / 1075 Output Total 575 / 575 400 / 400 Balance 450 / 450 675 / 675 Lab / Micro Data Result Diagrams: 01/20/22 05:20 01/20/22 05:20 Labs: Laboratory Results - last 24 hr 01/19/22 08:00: WBC 16.9 H, RBC 5.49, Hgb 16.0, Hct 47.0, MCV 85.6, MCH 29.1, MCHC 34.0, RDW Std Deviation 39.8, RDW Coeff of Frieda 12.8, Plt Count 475 H, MPV 11.0, Immature Gran % (Auto) 0.400, Neut % (Auto) 86.6 H, Lymph % (Auto) 5.7 L, [place] % (Auto) 7.2, Eos % (Auto) 0.0, Baso % (Auto) 0.1, Absolute Neuts (auto) 14.6 H, Absolute Lymphs (auto) 0.96, Nucleated RBC % 0 01/19/22 08:00: Sodium 124 L, Potassium 3.9, Chloride 87 L, Carbon Dioxide 24.0, Anion Gap 13, BUN 20 H, Creatinine 1.18, Estim Creat Clear Calc 57.39, Est GFR (MDRD) Af Amer 83, Est GFR (MDRD) Non-Af 68, BUN/Creatinine Ratio 16.9, Glucose 132 H, Calcium 9.9 01/19/22 08:50: Urine Color Yellow, Urine Clarity Sl. Cloudy, Urine pH 6.0, Ur Specific [place] 1.015, Urine Protein 30 H, Urine Glucose (UA) Normal, Urine Ketones 15 H, Urine Occult Blood 25 H, Urine Nitrite Negative, Urine Bilirubin Negative, Urine Urobilinogen Normal, Ur Leukocyte Esterase 500 H, Urine RBC 0-5 SEEN, Urine WBC 5-10 SEEN, Ur Squamous Epith Cells 0-5 SEEN, Calcium Oxalate Crystal RARE, Urine Bacteria 1+, Urine Mucus 2+ 01/20/22 05:20: WBC 15.5 H, RBC 4.52 L, Hgb 13.2, Hct 38.5 L, MCV 85.2, MCH 29.2, MCHC 34.3, RDW Std Deviation 40.2, RDW Coeff of Frieda 13.0, Plt Count 359, MPV 10.1, Immature Gran % (Auto) 0.400, Neut % (Auto) 78.0 H, Lymph % (Auto) 9.9 L, [place] % (Auto) 11.4 H, Eos % (Auto) 0.2, Baso % (Auto) 0.1, Absolute Neuts (auto) 12.1 H, Absolute Lymphs (auto) 1.53, Nucleated RBC % 0, Diff Path Review March01/20/22 05:20: Sodium 130 L, Potassium 3.5, Chloride 95 L, Carbon Dioxide 29.0, Anion Gap 6, BUN 24 H, Creatinine 0.78, Estim Creat Clear Calc 87.13, Est GFR (MDRD) Af Amer 134, Est GFR (MDRD) Non-Af 110, BUN/Creatinine Ratio 30.8 H, Glucose 113 H, Calcium 7.8 L Micro: Microbiology 01/19/22 11:04 Nasal Secretion SARS-CoV-2 Antigen (Rapid) - Final Radiography Diagnostic Testing: Radiology Impression Abdomen/Pelvis CT 01/19/22 08:00 IMPRESSION: Small bowel obstruction with the transition point in the mid ileum. Gastric distention. Multiple bladder calculi. Large calculus at the distal aspect of the right ureter. Electronically Signed: Kingsley Butler MD at 9:19 EST , KUB X-Ray 01/19/22 10:28 IMPRESSION: The tip of the NG tube is in the body of the stomach. Electronically Signed: Kingsley Butler MD at 12:12 EST , Physical Exam Narrative Physical exam General: Oriented x3, Cooperative. On baseline HEENT: Atraumatic, PERRLA, EOMI, Normocephalic Oral: No Gingival or Mucosal Lesions/ Ulcerations Neck: Supple, No JVD, Negative Carotid Bruits Lungs: Air entry diminished in bilateral lung bases. No crepitation/rhonchi Cardiovascular: Regular rate, Regular Rhythm, Normal S1, Normal S2, No murmurs Abdomen: Bowel sound present. Soft, mild distention. No palpable mass : Chronic indwelling Hannon catheter. No renal angle tenderness. No suprapubic tenderness. Extremities: No edema, Capillary Refill Less than 3 Seconds Skin: No rashes, No breakdown Musculoskeletal: Muscle atrophy of bilateral lower extremity at hip knee and ankle joints. On wheelchair bound. ROM limited. 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 DTR 2/4. Muscle strength 2/5 at major joints of lower extremity. Psych/Mental Status: Flat affect. Assessment & Plan Assessment/Plan (1) Small bowel obstruction: PLAN: This is a 56-year-old male was admitted through ER for decreased urine output, abdominal pain. Patient has chronic indwelling Hannon catheter and her sister noticed decreased urine output after large bowel movement the night before admission on 01/19/2022. Urine output was low despite irrigation. Patient also had nausea and vomiting. 1 small bowel obstruction: CT abdomen shows small bowel obstruction with transition point in the mid ileum and distended jejunum. Multiple bladder calculi along with large callus at distal aspect of right ureter. Had bowel movement a day before yesterday. Bowel sounds present. Patient had previous bowel obstruction about 21 July 2021 and had relief with Dulcolax suppository and enema. Keep NPO. IV fluid. NG suction. Awaiting transfer to [facility] Transfer papers signed. 2. History of gastroparesis patient was seen in [facility] in July 2021 for nausea and vomiting; CT abdomen and pelvis showed small bowel distention as well as gastric distention with luminal narrowing and wall thickening of the gastric antrum suggestive of possible gastritis or mass. At that time, was recommended that he be transferred to [facility] but he never got a bed though he was accepted. He did have EGD during that admission which showed a normal esophagus, normal stomach and single duodenal polyp which was resected and retrieved. Will monitor #Multiple bladder calculi has a chronic indwelling hannon catheter. UA shows evidence of UTI along with mild fever. On IV ceftriaxone. Urine culture pending. #History of hydrocephalus s/p shunt on seizure prophylaxis, ED DVT prophylaxis: lovenox Charges/Coding Visit Charges Inpatient E&M: 41432 Subs Hosp L2
[2022-01-20 07:47] LABS: AST(SGOT) 14 U/L (15-37); Alanine Aminotransfer ALT/SGPT 19 U/L (16-61); Albumin, Serum 2.6 g/dL (3.2-5.0); Alkaline Phosphatase 58 U/L (45-117); Bilirubin, Direct 0.21 mg/dL (0.00-0.30); Globulin 3.6 g/dL (2.2-4.2); Protein, Total 6.2 g/dL (6.4-8.2)
[2022-01-20] MEDS: Bisacodyl 10 MG Suppository RC (08:48)
[2022-01-20 10:00] VITALS: BP 118/76; PULSE 74; RESP 16; TEMP 36.8; O2SAT 94
--- NOTE | 2022-01-20 12:51 | CHAPLAIN ---
Type of Pastoral Visit _x__ Initial Visit ___ Follow-up Visit ___ On-call Visit ___ General Patient Visit ___ Spiritual Assessment ___ Family Conference ___ Bereavement ___ Rapid Response ___ Code Blue ___ Other (describe below) Pastoral Care Referral From _x__ Patient xFamily ___ Nurse ___ Physician ___ Rim Turning Machine Operator ___ Sound Editor ___ Other (describe below) Sacrament/Intervention _x__ Active listening ___ Anointing ___ Amish ___ Bereavement ___ Communion _x__ Liset exploration ___ _x__ Life review _x__ Prayer ___ Reconciliation ___ Sacrament of Sick _x__ Supportive presence ___ Wedding ___ Other (describe below) Pastoral Comments patient states he appreciates the visit and the prayers; longer conversation including sister of patient; goal is to get a bed at [facility]; pt is connected to local episcopalian and identifies as [employer] with liset for his needs;
[2022-01-20 13:33] VITALS: BP 127/88; PULSE 90; RESP 16; TEMP 36.8; O2SAT 98
[2022-01-20 14:16] LABS: Pathologist Review Reviewed
[2022-01-20 21:00] VITALS: BP 130/93; PULSE 72; RESP 16; TEMP 36.7; O2SAT 97
[2022-01-21 03:00] VITALS: BP 145/87; PULSE 89; RESP 16; TEMP 36.9; O2SAT 97
[2022-01-21] MEDS: Baclofen 10 MG Tablet 5 MG PO ×3 (05:39→21:29)
--- NOTE | 2022-01-21 08:41 | PCM.PN.HOSP ---
Subjective Subjective 1500 mLNG tube mainly bilious with suspicion of undigested food material/Pt had feculent material. Small amount of BM after Dulcolax suppository yesterday. Abdominal x-ray, labs ordered. Discussed with the surgeon. Objective Data Objective Data Vital Signs: Vital Signs Temp Pulse Resp BP Pulse Ox 98.5 F 89 16 145/87 H 97 01/21/22 03:00 01/21/22 03:00 01/21/22 03:00 01/21/22 03:00 01/21/22 03:00 Oxygen Delivery Method Room Air Weight: 133 lb 13.129 oz Body Mass Index (BMI) 23.7 Intake & Output: Intake and Output for Last 24 Hours 01/19/22 01/20/22 01/21/22 23:59 23:59 23:59 Intake Total 1025 / 1025 2150 / 2150 30 / 30 Output Total 575 / 575 2350 / 2550 1100 / 1100 Balance 450 / 450 -200 / -400 -1070 / -1070 Lab / Micro Data Result Diagrams: 01/21/22 10:50 01/20/22 05:20 Labs: Laboratory Results - last 24 hr 01/20/22 05:20: Diff Path Review Reviewed Micro: Microbiology 01/19/22 11:04 Nasal Secretion SARS-CoV-2 Antigen (Rapid) - Final Physical Exam Narrative Physical exam General: Oriented x3, Cooperative. On baseline HEENT: Atraumatic, PERRLA, EOMI, Normocephalic Oral: No Gingival or Mucosal Lesions/ Ulcerations Neck: Supple, No JVD, Negative Carotid Bruits Lungs: Air entry diminished in bilateral lung bases. No crepitation/rhonchi Cardiovascular: Regular rate, Regular Rhythm, Normal S1, Normal S2, No murmurs Abdomen: Bowel sound present/high-pitched. Soft, not distended, nontender. No palpable mass : Chronic indwelling Hannon catheter. No renal angle tenderness. No suprapubic tenderness. Extremities: No edema, Capillary Refill Less than 3 Seconds Skin: No rashes, No breakdown Musculoskeletal: Muscle atrophy of bilateral lower extremity at hip knee and ankle joints with contracture and paraplegia. On wheelchair bound. ROM limited. 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 DTR 2/4. Muscle strength 2/5 at major joints of lower extremity. Psych/Mental Status: Flat affect. Assessment & Plan Assessment/Plan (1) Small bowel obstruction: PLAN: This is a 56-year-old male was admitted through ER for decreased urine output, abdominal pain. Patient has chronic indwelling Hannon catheter and her sister noticed decreased urine output after large bowel movement the night before admission on 01/19/2022. Urine output was low despite irrigation. Patient also had nausea and vomiting. 1 small bowel obstruction: CT abdomen shows small bowel obstruction with transition point in the mid ileum and distended jejunum. Multiple bladder calculi along with large callus at distal aspect of right ureter. Had bowel movement a day before yesterday. Bowel sounds present. Patient had previous bowel obstruction about 21 July 2021 and had relief with Dulcolax suppository and enema. Keep NPO. IV fluid. NG suction. Awaiting transfer to [facility]. Transfer papers signed. 01/21: Labs, abdominal x-ray and small bowel follow-through x-ray with Gastrografin ordered. Dulcolax suppository 1 dose more ordered. Continue IV fluid Ringer lactate. Follow-up labs. Surgery consult requested and discussed. Small bowel series follow-through reviewed. Although not reported shows gaseous distention of colon with contrast on the left side. Surgeon requested GI consult for decompression of colon. GI Dr. Haynes consulted and discussed with him. I further called [facility] for urgent transfer. He is on high-priority but still they do not have beds open. I talked to Pt's sister, Ms. Lesli Bansal and she is agreeable for transfer to other [facility] besides [facility]. I called [facility] and [facility] they also do not have beds open but patient is on the list. Continue NG suction. Discussed with surgery in afternoon and he agreed that contrast descending colon suggestive of colonic ileus. Radiologist also reported contrast seen in colon at 120 minutes following ingestion of Gastrografin. She also ordered tapwater enema. 2. History of gastroparesis patient was seen in [facility] in July 2021 for nausea and vomiting; CT abdomen and pelvis showed small bowel distention as well as gastric distention with luminal narrowing and wall thickening of the gastric antrum suggestive of possible gastritis or mass. At that time, was recommended that he be transferred to [facility] but he never got a bed though he was accepted. He did have EGD during that admission which showed a normal esophagus, normal stomach and single duodenal polyp which was resected and retrieved. 01/21: The stomach is not distended clinically or in x-ray #Multiple bladder calculi has a chronic indwelling hannon catheter. UA shows evidence of UTI along with mild fever. On IV ceftriaxone. Urine culture pending. #History of hydrocephalus s/p shunt on seizure prophylaxis, ED DVT prophylaxis: lovenox Total time of the visit including total time spent in counseling or coordination of care, (more than 50% of the total time, spent in obtaining medical information from nurses and other ancillary care providers,explaining to the patient about labs, imaging, diagnosis and management), discussion with surgeon, GI, patient's next of kin her sister and transfer engineer several different: Clinic hospitals , review of labs and imaging is 40 minutes. Charges/Coding Visit Charges Inpatient E&M: 73629 Subs Hosp L3
--- NOTE | 2022-01-21 08:52 | NURSING ---
[facility] called for an update on bed availability for transfer. Transfer line stated he is a level one for medicine service, but that there is not a bed available at this time.
--- NOTE | 2022-01-21 09:10 | RAD_ITS ---
CLINICAL HISTORY: Male, 56 years old. Small bowel follow-through examination with GASTROGRAFIN. PROCEDURE: GASTROGRAFIN was introduced through the indwelling nasogastric tube. A small bowel follow-through examination was then obtained. Findings: Gaseous distention of small bowel loops. Gas is seen throughout the colon. A right-sided ventriculoperitoneal shunt tube is in situ. There is delay of the contrast transit through the small bowel. Contrast is seen within the colon at 120 minutes following the ingestion of GASTROGRAFIN. Findings are suggestive of an ileus pattern. Suitable acetabulum involving the left iliac bone with cephalic migration of the left femoral head. RAD/Small Bowel Series Only IMPRESSION: Findings suggestive of an ileus pattern with delay of contrast transit through the small bowel. Electronically Signed: Kingsley Butler MD at 12:32 EST ,
--- NOTE | 2022-01-21 10:39 | CASEMGMT ---
According to [facility] website, the following tertiary facilities are in network: [facility], [place], [facility], [facility], [facility], [facility] and .
[2022-01-21 11:01] LABS: Absolute Lymphocyte Count 1.48 X10^3/uL (0.83-4.51); Absolute Neutrophil Count 8.7 X10^3/uL (2.0-7.7); Basophil# 0.03 X10^3/uL; Basophil% 0.3 % (0-1); Eosinophil# 0.01 X10^3/uL; Eosinophils% 0.1 % (0-5); Hematocrit 39.5 % (40-54); Hemoglobin 13.3 g/dL (13.0-16.5); Lymphocyte # 1.48 X10^3/ul (0.83-4.51); Lymphocyte % 12.6 % (19-41); Mean Corp Hgb Conc 33.7 g/dL (32-36); Mean Corpuscular Hgb 29.5 pg (27.0-32.0); Mean Corpuscular Volume 87.6 fL (80-94); Mean Platelet Vol. 9.6 fl (6.2-12.0); Monocyte# 1.51 X10^3/uL; Monocyte% 12.8 % (0-10); NRBC Flagged by Analyzer 0 % (0-5); Neutrophil # 8.73 X10^3/uL (2.7-7.7); Neutrophil % 73.9 % (47-70); POSITIVE DIFFERENTIAL YES; Platelet Count 366 K/mm3 (150-450); RBC Distribution Width CV 12.9 % (11.6-14.6); RBC Distribution Width SD 41.1 fl (35.1-43.9); Red Blood Count 4.51 M/mm3 (4.6-6.2); White Blood Count 11.8 K/mm3 (4.4-11.0)
[2022-01-21 11:03] LABS: Differential Indicated SCAN CRITERIA MET
--- NOTE | 2022-01-21 11:06 | PCM.CONS.GEN ---
Assessment & Plan Assessment/Plan (1) Small bowel obstruction: PLAN: I have been consulted in conjunction with Dr. Ruiz. She will independently evaluate this patient. I have discussed this patient with Dr. Ruiz. Patient had a small bowel follow-through today, awaiting final results. Appears gaseous distention of the colon is present. Patient has had multiple bowel movements and appears to be resolving with conservative measures. Recommend tap water enemas x 2. Recommend consulting GI for potential decompressive colonoscopy. Patient continue to resolve with conservative measures. Patient is currently awaiting transfer to the [facility]. 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 We do not have inpatient neurology in house to assist with this patient's potential post-surgical complications if any were to arise. If patient's symptoms resolve and is able to tolerate his diet, he may not have to be transferred during this visit. Patient has had the opportunity to ask and have questions answered. No surgical intervention planned at this time. Patient verbally understands and agrees with the plan. Thank you for allowing us to participate in this patient's care. HPI Consult Data Date of Consult: 01/21/22 HPI Narrative HPI Narrative: JIAN ALTAMIRANO, is a 56 M who presents with nausea, vomiting and abdominal pain. Patient noted on Tuesday evening, he developed severe cramping abdominal pain. He stated he ate a salad for dinner and then almost immediately had abdominal pain and nausea/vomiting. He presented to the emergency department. CT scan of the abdomen/pelvis demonstrated small bowel obstruction with transition point in the mid ileum, gastric distention, multiple bladder calculi, and large calculus at the distal aspect of the right ureter. Patient had an NG tube placed and has had a total output of 1500 cc over the last 24 hour period. Liquid has been brownish in color. Upon examination, he states he feels much improved. He denies abdominal pain, nausea, vomiting. He noted having a multiple bowel movements, solid and liquid, yesterday. He has had 200 cc output since 0600 AM this morning. He had just returned from a small bowel follow-through this morning. Images show gaseous distention of the colon. final read is not completed. Patient states he has been hospitalized previously last July for similar symptoms. He was evaluated by Dr. Haynes for gastroparesis. He was placed on mineral oil, protonix and Reglan at that time, however the patient's POA, his sister, did not want the patient on the medication due to side effects. Patient denies having any previous abdominal surgeries. He denies cardiac or pulmonary disease. 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 The shunt was last replaced in the . He follows with neurology at [facility]. He denies having seizures or seizure activity. [facility] Medical History (Updated 01/19/22 @ 18:07 by Maddie Fernandez) Chronic indwelling Bowman catheter Gastroparesis Hydrocephalus Hypertension Ileus Seizures Home Medications baclofen 5 mg PO TID 12/11/20 [History Last Taken 01/19/22 06:00] Linzess 72 mcg PO DAILY 07/31/21 [History Last Taken 01/18/22] psyllium husk [Metamucil] 1 tbsp PO DAILY 01/19/22 [History Last Taken 01/17/22] Allergy/AdvReac Type Severity Reaction Status Date / Time Iodinated Contrast Media Allergy Anaphylaxis Verified 01/19/22 07:38 [Iodinated Contrast Media - IV Dye] nitrofurantoin AdvReac Upset Verified 01/19/22 07:38 Stomach Family History Other Cancer Heart disease Peptic ulcer disease Surgical History S/P TECHNICAL PROGRAM MANAGER shunt Social History Smoking Status: Never smoker ROS Constitutional Constitutional: Reports systems reviewed and no addt'l complaints, except as documented Eyes Eyes: Reports systems reviewed and no addt'l complaints, except as documented ENT HEENT: Reports systems reviewed and no addt'l complaints, except as documented Cardiovascular Cardiovascular: Reports systems reviewed and no addt'l complaints, except as documented Respiratory/Chest Respiratory/Chest: Reports systems reviewed and no addt'l complaints, except as documented Gastrointestinal Gastrointestinal: Reports systems reviewed and no addt'l complaints, except as documented Genitourinary Genitourinary: Reports systems reviewed and no addt'l complaints, except as documented Musculoskeletal Musculoskeletal: Reports systems reviewed and no addt'l complaints, except as documented Integumentary Integumentary: Reports systems reviewed and no addt'l complaints, except as documented Neurologic Neurologic: Reports systems reviewed and no addt'l complaints, except as documented Psychiatric Psychiatric: Reports systems reviewed and no addt'l complaints, except as documented Endocrine Endocrinology: Reports systems reviewed and no addt'l complaints, except as documented Hematologic/Lymphatic Hematologic/Lymphatic: Reports systems reviewed and no addt'l complaints, except as documented Allergic/Immunologic Allergic/Immunologic: Reports systems reviewed and no addt'l complaints, except as documented Physical Exam Const alert, oriented x3 and no apparent distress Neck full ROM Lymph Lymphatic: no lymphadenopathy noted Resp normal respiratory effort, normal air movement and clear to auscultation bilaterally Auscultation: diminished lung sounds bilateral lower Cardio regular rate and regular rhythm GI normal to inspection, nondistended, normoactive bowel sounds, soft to palpation, non-tender and non-distended no CVA tenderness Back/Spine no CVA tenderness Extremity Extremity Narrative: Bilateral lower extremity paralysis. Atrophy bilateral lower extremities. Skin no rashes or lesions noted Neuro oriented x3 Psych mental status grossly normal, thought process normal and cooperative Lab / Micro Data Result Diagrams: 01/21/22 10:50 01/20/22 05:20 Labs: Laboratory Results - last 24 hr 01/20/22 05:20: Diff Path Review Reviewed 01/21/22 10:50: WBC 11.8 H, RBC 4.51 L, Hgb 13.3, Hct 39.5 L, MCV 87.6, MCH 29.5, MCHC 33.7, RDW Std Deviation 41.1, RDW Coeff of Frieda 12.9, Plt Count 366, MPV 9.6, Immature Gran % (Auto) 0.300, Neut % (Auto) 73.9 H, Lymph % (Auto) 12.6 L, [place] % (Auto) 12.8 H, Eos % (Auto) 0.1, Baso % (Auto) 0.3, Absolute Neuts (auto) 8.7 H, Absolute Lymphs (auto) 1.48, Nucleated RBC % 0 Micro: Microbiology 01/19/22 08:50 Urine, Random Urine Culture - Preliminary Culture exhibits no growth. Charges/Coding Visit Charges Office Visits / Consults: 09531 IP Consult L3
[2022-01-21 11:30] VITALS: BP 132/90; PULSE 87; RESP 16; TEMP 36.6; O2SAT 95
[2022-01-21 11:36] LABS: Magnesium 2.2 mg/dL (1.6-2.6); Phosphorus 2.4 mg/dL (2.5-4.9)
[2022-01-21] MEDS: 0.9% Saline Lock 10 ML Syringe IV (12:13)
[2022-01-21] MEDS: Lactated Ringers 1,000 ML 75 ML IV (12:15)
[2022-01-21 14:04] VITALS: BP 129/88; PULSE 88; RESP 16; TEMP 37.3; O2SAT 94
[2022-01-21] MEDS: Menthol/Lanolin/Calamine/Znox 113 GM Tube 1 APPLIC TOPICAL ×2 (15:15→21:29)
--- NOTE | 2022-01-21 15:28 | CHAPLAIN ---
Type of Pastoral Visit ___ Initial Visit _x__ Follow-up Visit ___ On-call Visit ___ General Patient Visit ___ Spiritual Assessment ___ Family Conference ___ Bereavement ___ Rapid Response ___ Code Blue ___ Other (describe below) Pastoral Care Referral From ___ Patient _x__ Family ___ Nurse ___ Physician ___ Security Guards Dispatcher ___ Product Safety Test Engineer ___ Other (describe below) Sacrament/Intervention ___ Active listening ___ Anointing ___ Temple ___ Bereavement ___ Communion ___ Liset exploration ___ ___ Life review _x__ Prayer ___ Reconciliation ___ Sacrament of Sick _x__ Supportive presence ___ Wedding ___ Other (describe below) Pastoral Comments follow up visit to check on patient who welcomed presence and prayer yesterday; pt is still waiting transfer; pt welcoming of prayer support; pt admits to being tired from a full day of testing so kept this visit brief
[2022-01-21 16:56] VITALS: BP 143/87; PULSE 96; RESP 18; TEMP 36.7; O2SAT 95
[2022-01-21] MEDS: Bisacodyl 10 MG Suppository RC ×2 (17:04→18:16)
[2022-01-21] MEDS: Ceftriaxone 1 GM/50 ML BAG IV (21:29)
[2022-01-21 23:00] VITALS: BP 139/88; PULSE 95; RESP 18; TEMP 37; O2SAT 97
[2022-01-22] MEDS: Lactated Ringers 1,000 ML 75 ML IV (00:30)
[2022-01-22 05:00] VITALS: BP 134/80; PULSE 92; RESP 18; TEMP 36.3; O2SAT 94
[2022-01-22] MEDS: Baclofen 10 MG Tablet 5 MG PO ×3 (05:33→22:24)
[2022-01-22 06:23] LABS: Absolute Neutrophil Count 7.4 X10^3/uL (2.0-7.7); Basophil# 0.04 X10^3/uL; Basophil% 0.4 % (0-1); Eosinophil# 0.06 X10^3/uL; Eosinophils% 0.6 % (0-5); Hematocrit 38.2 % (40-54); Lymphocyte % 16.3 % (19-41); Mean Corpuscular Hgb 30.2 pg (27.0-32.0); Mean Corpuscular Volume 88.6 fL (80-94); Monocyte% 11.5 % (0-10); NRBC Flagged by Analyzer 0 % (0-5); Neutrophil # 7.37 X10^3/uL (2.7-7.7); Neutrophil % 70.8 % (47-70); Platelet Count 379 K/mm3 (150-450); RBC Distribution Width CV 12.4 % (11.6-14.6); Red Blood Count 4.31 M/mm3 (4.6-6.2); White Blood Count 10.4 K/mm3 (4.4-11.0)
[2022-01-22 06:51] LABS: Anion Gap 10 (5-15); BUN 17 mg/dL (7-18); BUN/Creat Ratio 28.3 RATIO (10-20); Calcium,Total 8.6 mg/dL (8.5-10.1); Chloride 101 mmol/L (98-107); EST Glomerular Filtration Rate 149 mL/min (>60); Est Glom Filt Rate - Afr Amer 180 mL/min (>60); Estimated Creatinine Clearance 113.27 ml/min; Glucose 76 mg/dL (74-106); Potassium 3.2 mmol/L (3.5-5.1); Sodium Level 136 mmol/L (136-145)
--- NOTE | 2022-01-22 07:34 | PN.HOSP_ITS ---
Subjective Subjective Patient denies any abdominal pain. He had bowel movement and passed flatus after suppository and enema. Discussed with the surgeon. Normal development [facility]. Objective Data Objective Data Vital Signs: Vital Signs Temp Pulse Resp BP Pulse Ox 97.4 F L 92 18 134/80 H 94 01/22/22 05:00 01/22/22 05:00 01/22/22 05:00 01/22/22 05:00 01/22/22 05:00 Oxygen Delivery Method Room Air Weight: 133 lb 13.129 oz Body Mass Index (BMI) 23.7 Intake & Output: Intake and Output for Last 24 Hours 01/20/22 01/21/22 01/22/22 23:59 23:59 23:59 Intake Total 2150 / 2150 1199.17 / 1199.17 918.75 / 918.75 Output Total 2350 / 2550 2200 / 2550 1000 / 1000 Balance -200 / -400 -1000.83 / -1350.83 -81.25 / -81.25 Lab / Micro Data Result Diagrams: 01/22/22 05:54 01/22/22 05:54 Labs: Laboratory Results - last 24 hr 01/21/22 10:50: WBC 11.8 H, RBC 4.51 L, Hgb 13.3, Hct 39.5 L, MCV 87.6, MCH 29.5, MCHC 33.7, RDW Std Deviation 41.1, RDW Coeff of Frieda 12.9, Plt Count 366, MPV 9.6, Immature Gran % (Auto) 0.300, Neut % (Auto) 73.9 H, Lymph % (Auto) 12.6 L, [place] % (Auto) 12.8 H, Eos % (Auto) 0.1, Baso % (Auto) 0.3, Absolute Neuts (auto) 8.7 H, Absolute Lymphs (auto) 1.48, Nucleated RBC % 0, Diff Path Review March01/21/22 10:50: Phosphorus 2.4 L, Magnesium 2.2 01/22/22 05:54: WBC 10.4, RBC 4.31 L, Hgb 13.0, Hct 38.2 L, MCV 88.6, MCH 30.2, MCHC 34.0, RDW Std Deviation 41.0, RDW Coeff of Frieda 12.4, Plt Count 379, MPV 10.0, Immature Gran % (Auto) 0.400, Neut % (Auto) 70.8 H, Lymph % (Auto) 16.3 L, [place] % (Auto) 11.5 H, Eos % (Auto) 0.6, Baso % (Auto) 0.4, Absolute Neuts (auto) 7.4, Absolute Lymphs (auto) 1.70, Nucleated RBC % 0 01/22/22 05:54: Sodium 136, Potassium 3.2 L, Chloride 101, Carbon Dioxide 25.0, Anion Gap 10, BUN 17, Creatinine 0.60 L, Estim Creat Clear Calc 113.27, Est GFR (MDRD) Af Amer 180, Est GFR (MDRD) Non-Af 149, BUN/Creatinine Ratio 28.3 H, Glucose 76, Calcium 8.6 Micro: Microbiology 01/19/22 08:50 Urine, Random Urine Culture - Preliminary Culture exhibits no growth. 01/19/22 11:04 Nasal Secretion SARS-CoV-2 Antigen (Rapid) - Final Radiography Diagnostic Testing: Radiology Impression Small Bowel X-Ray 01/21/22 09:10 IMPRESSION: Findings suggestive of an ileus pattern with delay of contrast transit through the small bowel. Electronically Signed: Kingsley Butler MD at 12:32 EST , Physical Exam Narrative Physical exam General: Oriented x3, Cooperative. On baseline HEENT: Atraumatic, PERRLA, EOMI, Normocephalic Oral: NG tube bilious output. No Gingival or Mucosal Lesions/ Ulcerations Neck: Supple, No JVD, Negative Carotid Bruits Lungs: Air entry diminished in bilateral lung bases. No crepitation/rhonchi Cardiovascular: Regular rate, Regular Rhythm, Normal S1, Normal S2, No murmurs Abdomen: Bowel sound sluggish. Soft, not distended, nontender. No palpable mass : Chronic indwelling Hannon catheter. No renal angle tenderness. No suprapubic tenderness. Extremities: No edema, Capillary Refill Less than 3 Seconds Skin: No rashes, No breakdown Musculoskeletal: Muscle atrophy of bilateral lower extremity at hip knee and ankle joints with contracture and paraplegia. On wheelchair bound. ROM limited. 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 DTR 2/4. Muscle strength 2/5 at major joints of lower extremity. Psych/Mental Status: Flat affect. Assessment & Plan Assessment/Plan (1) Small bowel obstruction: PLAN: This is a 56-year-old male was admitted through ER for decreased urine output, abdominal pain. Patient has chronic indwelling Hannon catheter and her sister noticed decreased urine output after large bowel movement the night before admission on 01/19/2022. Urine output was low despite irrigation. Patient also had nausea and vomiting. 1 small bowel obstruction: CT abdomen shows small bowel obstruction with transition point in the mid ileum and distended jejunum. Multiple bladder calculi along with large callus at distal aspect of right ureter. Had bowel movement a day before yesterday. Bowel sounds present. Patient had previous bowel obstruction about 21 July 2021 and had relief with Dulcolax suppository and enema. Keep NPO. IV fluid. NG suction. Awaiting transfer to [facility]. Transfer papers signed. 01/21: Dulcolax suppository 1 dose was given Continue IV fluid Ringer lactate. Follow-up labs. Surgery consult requested and discussed. Small bowel series follow-through with Gastrografin reviewed. Although not reported shows gaseous distention of colon with contrast on the left side. Surgeon requested GI consult for decompression of colon. GI Dr. Haynes consulted and discussed with him. I further called [facility] for urgent transfer. He is on high- priority list but still they do not have beds open. I talked to Pt's sister, Ms. Lesli Bansal and she is agreeable for transfer to other [facility] besides [facility]. I called [facility] and [facility] they also do not have beds open but patient is on the list. Continue NG suction. Discussed with surgery in afternoon and he agreed that contrast descending colon suggestive of colonic ileus. Radiologist also reported contrast seen in colon at 120 minutes following ingestion of Gastrografin. She also ordered tapwater enema. 01/22: Phosphorus and potassium are low consistent with hypokalemia and hypophosphatemia.. Patient getting IV potassium phosphate. IV potassium phosphate ordered. Patient had bowel movement and flatus passed. NG output 800 mL on 01/21 and 1100 mL today after 12 AM. Is mainly bilious. On IV fluid Ringer lactate D5 as patient blood sugar was low 76. Magnesium 2.4. Yesterday the patient's sister refused for any procedure in [facility]. She refused for colonoscopy to Dr. Haynes. 2. History of gastroparesis * patient was seen in [facility] in July 2021 for nausea and vomiting; CT abdomen and pelvis showed small bowel distention as well as gastric distention with luminal narrowing and wall thickening of the gastric antrum suggestive of possible gastritis or mass. At that time, was recommended that he be transferred to [facility] but he never got a bed though he was accepted. He did have EGD during that admission which showed a normal esophagus, normal stomach and single duodenal polyp which was resected and retrieved. 01/21: The stomach is not distended clinically or in x-ray #Multiple bladder calculi * has a chronic indwelling hannon catheter. UA shows evidence of UTI along with mild fever. On IV ceftriaxone. Urine culture pending. #History of hydrocephalus s/p shunt on seizure prophylaxis, ED DVT prophylaxis: lovenox Total time of the visit including total time spent in counseling or coordination of care, (more than 50% of the total time, spent in obtaining medical i nformation from nurses and other ancillary care providers,explaining to the patient about labs, imaging, diagnosis and management), discussion with surgeon, GI, patient's next of kin her sister and tool coordinator several different: Clinic hospitals , review of labs and imaging is 40 minutes. Charges/Coding Visit Charges Inpatient E&M: 73401 Subs Hosp L2
[2022-01-22 08:22] VITALS: BP 139/85; PULSE 91; RESP 18; TEMP 36.2; O2SAT 95
--- NOTE | 2022-01-22 08:32 | RAD_ITS ---
STUDY: X-RAY - ABDOMEN/PELVIS REASON FOR EXAM: Male, 56 years old. Ileus -- portable TECHNIQUE: Single AP view of the abdomen / pelvis. COMPARISON: Comparison is made with prior study dated 01/21/2022. FINDINGS: Oral contrast is now seen throughout the colon. Residual small bowel dilatation. A right-sided ventriculoperitoneal shunt tube is seen. Normal soft tissue structures. Stable pseudoacetabulum with the cephalic migration of the left hip. RAD/Abdomen Single View (Portable) IMPRESSION: Oral contrast is now seen throughout the colon. Residual mildly dilated small bowel. Electronically Signed: Kingsley Butler MD at 9:25 EST ,
[2022-01-22] MEDS: Bisacodyl 10 MG Suppository RC ×2 (09:29→13:24)
--- NOTE | 2022-01-22 10:23 | PN.SURG_ITS ---
Subjective Subjective Patient has been having flatus as well as liquid stool with the enemas. KUB from this morning shows contrast within the colon still looks to have a distended sigmoid. Objective Data Objective Data Vital Signs: Vital Signs Temp Pulse Resp BP Pulse Ox 97.2 F L 91 18 139/85 H 95 01/22/22 08:22 01/22/22 08:22 01/22/22 08:22 01/22/22 08:22 01/22/22 08:22 Oxygen Delivery Method Room Air Weight: 133 lb 13.129 oz Body Mass Index (BMI) 23.7 Intake & Output: Intake and Output for Last 24 Hours 01/20/22 01/21/22 01/22/22 23:59 23:59 23:59 Intake Total 2150 / 2150 1199.17 / 1199.17 918.75 / 918.75 Output Total 2350 / 2550 2200 / 2550 1000 / 1000 Balance -200 / -400 -1000.83 / -1350.83 -81.25 / -81.25 Lab / Micro Data Result Diagrams: 01/22/22 05:54 01/22/22 05:54 Labs: Laboratory Results - last 24 hr 01/21/22 10:50: WBC 11.8 H, RBC 4.51 L, Hgb 13.3, Hct 39.5 L, MCV 87.6, MCH 29.5, MCHC 33.7, RDW Std Deviation 41.1, RDW Coeff of Frieda 12.9, Plt Count 366, MPV 9.6, Immature Gran % (Auto) 0.300, Neut % (Auto) 73.9 H, Lymph % (Auto) 12.6 L, [place] % (Auto) 12.8 H, Eos % (Auto) 0.1, Baso % (Auto) 0.3, Absolute Neuts (auto) 8.7 H, Absolute Lymphs (auto) 1.48, Nucleated RBC % 0, Diff Path Review March01/21/22 10:50: Phosphorus 2.4 L, Magnesium 2.2 01/22/22 05:54: WBC 10.4, RBC 4.31 L, Hgb 13.0, Hct 38.2 L, MCV 88.6, MCH 30.2, MCHC 34.0, RDW Std Deviation 41.0, RDW Coeff of Frieda 12.4, Plt Count 379, MPV 10.0, Immature Gran % (Auto) 0.400, Neut % (Auto) 70.8 H, Lymph % (Auto) 16.3 L, [place] % (Auto) 11.5 H, Eos % (Auto) 0.6, Baso % (Auto) 0.4, Absolute Neuts (auto) 7.4, Absolute Lymphs (auto) 1.70, Nucleated RBC % 0 01/22/22 05:54: Sodium 136, Potassium 3.2 L, Chloride 101, Carbon Dioxide 25.0, Anion Gap 10, BUN 17, Creatinine 0.60 L, Estim Creat Clear Calc 113.27, Est GFR (MDRD) Af Amer 180, Est GFR (MDRD) Non-Af 149, BUN/Creatinine Ratio 28.3 H, Glucose 76, Calcium 8.6 Micro: Microbiology 01/19/22 08:50 Urine, Random Urine Culture - Final Culture exhibits no growth. 01/19/22 11:04 Nasal Secretion SARS-CoV-2 Antigen (Rapid) - Final Radiography Diagnostic Testing: Radiology Impression Small Bowel X-Ray 01/21/22 09:10 IMPRESSION: Findings suggestive of an ileus pattern with delay of contrast transit through the small bowel. Electronically Signed: Kingsley Butler MD at 12:32 EST , KUB X-Ray 01/22/22 08:32 IMPRESSION: Oral contrast is now seen throughout the colon. Residual mildly dilated small bowel. Electronically Signed: Kingsley Butler MD at 9:25 EST , Physical Exam Const alert, oriented x3 and no apparent distress HEENT HEENT Narrative: NG in place Neck full ROM Resp normal respiratory effort, normal air movement and clear to auscultation bilaterally Auscultation: diminished lung sounds bilateral lower Cardio regular rate GI soft to palpation, non-tender and non-distended no CVA tenderness Extremity Extremity Narrative: Bilateral lower extremity paralysis. Atrophy bilateral lower extremities. Skin no rashes or lesions noted Neuro oriented x3 Psych mental status grossly normal, thought process normal and cooperative Assessment & Plan Assessment/Plan (1) Ileus: (2) Hypokalemia: (3) Hyponatremia: PLAN: This morning's KUB still shows contrast in the colon still has a dilated sigmoid patient has had some bowel movements we will continue with enemas. Patient is still having quite a bit out of his NG will continue NG. Also placed patient on Protonix unsure if the NG could be causing some irritation drainage is brownish color questionable coffee-ground. Hypokalemia?replaced Hyponatremia?improved Addendum: Patient is continue to get some results from the enemas this morning still has some enemas plan for this afternoon. Will check KUB in the morning. Dr. Lopez will be covering the weekend. Discussed with Dr. Annamarie Ruiz M.D. Pager: [phone] [facility] [address] [place] [address], [facility], [address] [place] [address] Office: [phone] Charges/Coding Visit Charges Inpatient E&M: 87817 Subs Hosp L3
[2022-01-22] MEDS: Menthol/Lanolin/Calamine/Znox 113 GM Tube 1 APPLIC TOPICAL ×2 (12:28→22:28)
[2022-01-22] MEDS: Dext 5%-0.45% NS 1,000 ML 75 ML IV (12:28)
[2022-01-22 12:39] VITALS: BP 136/93; PULSE 88; RESP 18; TEMP 36.9; O2SAT 95
[2022-01-22 13:27] LABS: Pathologist Review Reviewed
[2022-01-22] MEDS: Dextrose 5%-Lactated Ringers 1,000 ML 75 ML IV (13:47)
[2022-01-22 17:47] VITALS: BP 150/84; PULSE 89; RESP 18; TEMP 36.4; O2SAT 97
[2022-01-22 20:47] LABS: Potassium 3.4 mmol/L (3.5-5.1)
[2022-01-22] MEDS: Ceftriaxone 1 GM/50 ML BAG IV (22:20)
[2022-01-22 22:34] VITALS: BP 157/86; PULSE 88; RESP 16; TEMP 37.2; O2SAT 94
[2022-01-22] MEDS: Potassium Chloride 10mEq/100mL 10 MEQ/100 ML IV.SOLN. 100 MEQ IV BOLUS (23:01)
[2022-01-23] MEDS: Potassium Chloride 10mEq/100mL 10 MEQ/100 ML IV.SOLN. 100 MEQ IV BOLUS (00:06)
[2022-01-23] MEDS: Dextrose 5%-Lactated Ringers 1,000 ML 75 ML IV ×2 (02:59→16:28)
[2022-01-23 05:13] VITALS: BP 131/75; PULSE 84; RESP 16; TEMP 36.9; O2SAT 96
[2022-01-23] MEDS: Baclofen 10 MG Tablet 5 MG PO ×3 (05:16→21:25)
--- NOTE | 2022-01-23 05:55 | RAD_ITS ---
STUDY: X-RAY - ABDOMEN/PELVIS REASON FOR EXAM: Male, 56 years old. ileus TECHNIQUE: Single AP view of the abdomen / pelvis. COMPARISON: 01/22/2022 FINDINGS: Ventriculoperitoneal shunt. No change in multiple loops of dilated small bowel likely consistent with an adynamic ileus. Oral contrast again seen throughout the colon. The visualized liver, spleen and kidneys are grossly normal in size and morphology. Normal soft tissue structures. Normal visualized osseous structures. RAD/Abdomen Single View (Portable) IMPRESSION: No change in adynamic ileus. Electronically Signed: Evangelista Beatty MD at 7:05 EST ,
[2022-01-23 06:29] LABS: Absolute Lymphocyte Count 1.61 X10^3/uL (0.83-4.51); Absolute Neutrophil Count 4.9 X10^3/uL (2.0-7.7); Basophil# 0.04 X10^3/uL; Basophil% 0.5 % (0-1); Eosinophil# 0.28 X10^3/uL; Eosinophils% 3.5 % (0-5); Hematocrit 35.9 % (40-54); Hemoglobin 11.8 g/dL (13.0-16.5); Lymphocyte # 1.61 X10^3/ul (0.83-4.51); Mean Corp Hgb Conc 32.9 g/dL (32-36); Mean Corpuscular Hgb 29.2 pg (27.0-32.0); Mean Corpuscular Volume 88.9 fL (80-94); Mean Platelet Vol. 9.8 fl (6.2-12.0); Monocyte# 1.22 X10^3/uL; Monocyte% 15.2 % (0-10); NRBC Flagged by Analyzer 0 % (0-5); Neutrophil # 4.88 X10^3/uL (2.7-7.7); Neutrophil % 60.7 % (47-70); Platelet Count 362 K/mm3 (150-450); RBC Distribution Width CV 12.6 % (11.6-14.6); RBC Distribution Width SD 41.2 fl (35.1-43.9); Red Blood Count 4.04 M/mm3 (4.6-6.2)
[2022-01-23 06:59] LABS: Anion Gap 5 (5-15); BUN 11 mg/dL (7-18); BUN/Creat Ratio 18.5 RATIO (10-20); Chloride 104 mmol/L (98-107); Creatinine, Serum 0.59 mg/dL (0.70-1.30); EST Glomerular Filtration Rate 151 mL/min (>60); Est Glom Filt Rate - Afr Amer 183 mL/min (>60); Estimated Creatinine Clearance 115.19 ml/min; Glucose 116 mg/dL (74-106); Magnesium 2.1 mg/dL (1.6-2.6); Potassium 3.6 mmol/L (3.5-5.1); Sodium Level 136 mmol/L (136-145)
[2022-01-23 07:15] LABS: Phosphorus 2.6 mg/dL (2.5-4.9)
--- NOTE | 2022-01-23 07:57 | PN.SURG_ITS ---
Subjective Subjective Patient is tolerating NG tube being removed. Tolerating ice chips. Passing flatus. No abdominal pain. Objective Data Objective Data Abdomen is soft and flat no rebound guarding or peritoneal signs. Vital Signs: Vital Signs Temp Pulse Resp BP Pulse Ox 98.5 F 84 16 131/75 H 96 01/23/22 05:13 01/23/22 05:13 01/23/22 05:13 01/23/22 05:13 01/23/22 05:13 Oxygen Delivery Method Room Air Weight: 133 lb 13.129 oz Body Mass Index (BMI) 23.7 Intake & Output: Intake and Output for Last 24 Hours 01/21/22 01/22/22 01/23/22 23:59 23:59 23:59 Intake Total 1199.17 / 1199.17 3321.25 / 3321.25 547.5 / 547.5 Output Total 2200 / 2550 2750 / 2750 350 / 350 Balance -1000.83 / -1350.83 571.25 / 571.25 197.5 / 197.5 Lab / Micro Data Result Diagrams: 01/23/22 06:04 01/23/22 06:04 Labs: Laboratory Results - last 24 hr 01/21/22 10:50: Diff Path Review Reviewed 01/22/22 20:23: Potassium 3.4 L 01/23/22 06:04: WBC 8.0, RBC 4.04 L, Hgb 11.8 L, Hct 35.9 L, MCV 88.9, MCH 29.2, MCHC 32.9, RDW Std Deviation 41.2, RDW Coeff of Frieda 12.6, Plt Count 362, MPV 9.8, Immature Gran % (Auto) 0.100, Neut % (Auto) 60.7, Lymph % (Auto) 20.0, [place] % (Auto) 15.2 H, Eos % (Auto) 3.5, Baso % (Auto) 0.5, Absolute Neuts (auto) 4.9, Absolute Lymphs (auto) 1.61, Nucleated RBC % 0 01/23/22 06:04: Sodium 136, Potassium 3.6, Chloride 104, Carbon Dioxide 27.0, Anion Gap 5, BUN 11, Creatinine 0.59 L, Estim Creat Clear Calc 115.19, Est GFR (MDRD) Af Amer 183, Est GFR (MDRD) Non-Af 151, BUN/Creatinine Ratio 18.5, Gluco se 116 H, Calcium 8.0 L, Magnesium 2.1 01/23/22 06:04: Phosphorus 2.6 Micro: Microbiology 01/19/22 08:50 Urine, Random Urine Culture - Final Culture exhibits no growth. 01/19/22 11:04 Nasal Secretion SARS-CoV-2 Antigen (Rapid) - Final Radiography Diagnostic Testing: Radiology Impression KUB X-Ray 01/22/22 08:32 IMPRESSION: Oral contrast is now seen throughout the colon. Residual mildly dilated small bowel. Electronically Signed: Kingsley Butler MD at 9:25 EST , KUB X-Ray 01/23/22 05:55 IMPRESSION: No change in adynamic ileus. Electronically Signed: Evangelista Beatty MD at 7:05 EST , Assessment & Plan Assessment/Plan (1) Small bowel obstruction: PLAN: Will try to start clear liquids today. All the contrast is in his colon.
[2022-01-23 08:35] VITALS: BP 139/91; PULSE 85; RESP 18; TEMP 36.9; O2SAT 97
[2022-01-23] MEDS: Menthol/Lanolin/Calamine/Znox 113 GM Tube 1 APPLIC TOPICAL ×2 (09:34→21:19)
--- NOTE | 2022-01-23 10:00 | CASEMGMT ---
Per Dr. Braden, pt is improving and likely will not transfer to [facility] now. Layo TREJO CM
--- NOTE | 2022-01-23 11:20 | CASEMGMT ---
NEIL EATON assessment: Face to Face with patient for initial transition planning/care coordination assessment. NEIL EATON introduced self and role at [facility], pt/sister voice understanding and consents to assessment. Pt is sitting up in bed in no distress on RA. Pt is A/Ox4 and answers all questions appropriately but sister completes most of assessment with NEIL EATON. Care providers, pharmacy, and demographics verified/updated. Presentation: Pt c/o abd pain, N/V-decreased urine output this am Admitting dx: SBO PCP: Tommy Specialists: GI, uro and neuro at [facility] main Preferred Pharmacy: [facility] Insurance: [facility] Prescription Benefit: Yes Living Will/HPOA: Pt states does not have LW/HPOA and declines AD info. Sister states 'We need to work on that soon.' LNOK: Lesli Bansal, sister; Isadora Fuentes, sister Living Arrangements: Pt lives with sisterLesli, on main level of 2 story home and states no concerns at home. Pt's sister assists with ADL's. Transportation: Pt's sisters drive and states no transportation concerns. DME/HHC: Pt has the following DME: BSC, shower chair, w/c, chronic hannon, ramp, and finnish crab crutches. Pt/sister state no need for any further DME. Pt states has had HHC in past and states no hx of SNF. Pt/sister state no concerns with pt going home at time of discharge. Pt is on disability. Pt does not smoke cigarettes or drink ETOH. Pt/sister state no further concerns/needs. CM to follow for any further discharge planning/needs. Advised pt/sister to ask for CM if any further questions/concerns/needs arise, voice understanding. Pt Goal: Home Plan: [place] NEIL EATON
[2022-01-23] MEDS: Bisacodyl 10 MG Suppository RC (13:57)
--- NOTE | 2022-01-23 14:49 | PCM.PN.HOSP ---
Subjective Subjective Patient passing flatus and bowel movement. Started on clear liquids. Objective Data Objective Data Vital Signs: Vital Signs Temp Pulse Resp BP Pulse Ox 98.5 F 85 18 139/91 H 97 01/23/22 08:35 01/23/22 08:35 01/23/22 08:35 01/23/22 08:35 01/23/22 08:35 Oxygen Delivery Method Room Air Weight: 133 lb 13.129 oz Body Mass Index (BMI) 23.7 Intake & Output: Intake and Output for Last 24 Hours 01/21/22 01/22/22 01/23/22 23:59 23:59 23:59 Intake Total 1199.17 / 1199.17 3321.25 / 3321.25 657.5 / 657.5 Output Total 2200 / 2550 2750 / 2750 850 / 850 Balance -1000.83 / -1350.83 571.25 / 571.25 -192.5 / -192.5 Lab / Micro Data Result Diagrams: 01/23/22 06:04 01/23/22 06:04 Labs: Laboratory Results - last 24 hr 01/22/22 20:23: Potassium 3.4 L 01/23/22 06:04: WBC 8.0, RBC 4.04 L, Hgb 11.8 L, Hct 35.9 L, MCV 88.9, MCH 29.2, MCHC 32.9, RDW Std Deviation 41.2, RDW Coeff of Frieda 12.6, Plt Count 362, MPV 9.8, Immature Gran % (Auto) 0.100, Neut % (Auto) 60.7, Lymph % (Auto) 20.0, Geary % (Auto) 15.2 H, Eos % (Auto) 3.5, Baso % (Auto) 0.5, Absolute Neuts (auto) 4.9, Absolute Lymphs (auto) 1.61, Nucleated RBC % 0 01/23/22 06:04: Sodium 136, Potassium 3.6, Chloride 104, Carbon Dioxide 27.0, Anion Gap 5, BUN 11, Creatinine 0.59 L, Estim Creat Clear Calc 115.19, Est GFR (MDRD) Af Amer 183, Est GFR (MDRD) Non-Af 151, BUN/Creatinine Ratio 18.5, Glucose 116 H, Calcium 8.0 L, Magnesium 2.1 01/23/22 06:04: Phosphorus 2.6 Micro: Microbiology 01/19/22 08:50 Urine, Random Urine Culture - Final Culture exhibits no growth. 01/19/22 11:04 Nasal Secretion SARS-CoV-2 Antigen (Rapid) - Final Radiography Diagnostic Testing: Radiology Impression KUB X-Ray 01/23/22 05:55 IMPRESSION: No change in adynamic ileus. Electronically Signed: Evangelista Beatty MD at 7:05 EST , Physical Exam Narrative Physical exam NG tube drainage was 1450 mL bilious yesterday General: Oriented x3, Cooperative. On baseline HEENT: Atraumatic, PERRLA, EOMI, Normocephalic Oral: NG tube removed. No Gingival or Mucosal Lesions/ Ulcerations Neck: Supple, No JVD, Negative Carotid Bruits Lungs: Air entry diminished in bilateral lung bases. No crepitation/rhonchi Cardiovascular: Regular rate, Regular Rhythm, Normal S1, Normal S2, No murmurs Abdomen: Bowel sound good high-pitched. Soft, not distended, nontender. No palpable mass : Chronic indwelling Hannon catheter. No renal angle tenderness. No suprapubic tenderness. Extremities: No edema, Capillary Refill Less than 3 Seconds Skin: No rashes, No breakdown Musculoskeletal: Muscle atrophy of bilateral lower extremity at hip knee and ankle joints with contracture and paraplegia. On wheelchair bound. ROM limited. 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 DTR 2/4. Muscle strength 2/5 at major joints of lower extremity. Psych/Mental Status: Flat affect. Assessment & Plan Assessment/Plan (1) Small bowel obstruction: PLAN: This is a 56-year-old male was admitted through ER for decreased urine output, abdominal pain. Patient has chronic indwelling Hannon catheter and her sister noticed decreased urine output after large bowel movement the night before admission on 01/19/2022. Urine output was low despite irrigation. Patient also had nausea and vomiting. 1 small bowel obstruction: CT abdomen shows small bowel obstruction with transition point in the mid ileum and distended jejunum. Multiple bladder calculi along with large callus at distal aspect of right ureter. Had bowel movement a day before yesterday. Bowel sounds present. Patient had previous bowel obstruction about 21 July 2021 and had relief with Dulcolax suppository and enema. Keep NPO. IV fluid. NG suction. Awaiting transfer to [facility]. Transfer papers signed. 01/21: Dulcolax suppository 1 dose was given Continue IV fluid Ringer lactate. Follow-up labs. Surgery consult requested and discussed. Small bowel series follow-through with Gastrografin reviewed. Although not reported shows gaseous distention of colon with contrast on the left side. Surgeon requested GI consult for decompression of colon. GI Dr. Haynes consulted and discussed with him. I further called [facility] for urgent transfer. He is on high-priority list but still they do not have beds open. I talked to Pt's sister, Ms. Lesli Bansal and she is agreeable for transfer to other [facility]. I called [facility] and [facility] they also do not have beds open but patient is on the list. Continue NG suction. Discussed with surgery in afternoon and he agreed that contrast descending colon suggestive of colonic ileus. Radiologist also reported contrast seen in colon at 120 minutes following ingestion of Gastrografin. She also ordered tapwater enema. 01/22: Phosphorus and potassium are low consistent with hypokalemia and hypophosphatemia.. Patient getting IV potassium phosphate. IV potassium phosphate ordered. Patient had bowel movement and flatus passed. NG output 800 mL on 01/21 and 1100 mL today after 12 AM. Is mainly bilious. On IV fluid Ringer lactate D5 as patient blood sugar was low 76. Magnesium 2.4. Yesterday the patient's sister refused for any procedure in [facility]. She refused for colonoscopy to Dr. Haynes. 01/23: Patient started on clear liquid diet. Potassium 3.6. Phosphorus 2.6. Magnesium 2.1. Goal potassium 4.0 therefore IV potassium phosphate ordered. 2. History of gastroparesis patient was seen in [facility] in July 2021 for nausea and vomiting; CT abdomen and pelvis showed small bowel distention as well as gastric distention with luminal narrowing and wall thickening of the gastric antrum suggestive of possible gastritis or mass. At that time, was recommended that he be transferred to [facility] but he never got a bed though he was accepted. He did have EGD during that admission which showed a normal esophagus, normal stomach and single duodenal polyp which was resected and retrieved. 01/21: The stomach is not distended clinically or in x-ray #Multiple bladder calculi has a chronic indwelling hannon catheter. UA shows evidence of UTI along with mild fever. On IV ceftriaxone. 01/23: Urine culture shows no growth. IV antibiotic ceftriaxone discontinued #History of hydrocephalus s/p shunt on seizure prophylaxis, ED DVT prophylaxis: lovenox Total time of the visit including total time spent in counseling or coordination of care, (more than 50% of the total time, spent in obtaining medical information from nurses and other ancillary care providers,explaining to the patient about labs, imaging, diagnosis and management), discussion with surgeon, GI, patient's next of kin her sister and nutrition coordinator several different: Clinic hospitals , review of labs and imaging is 40 minutes. Charges/Coding Visit Charges Inpatient E&M: 48006 Subs Hosp L2
[2022-01-23 15:09] VITALS: BP 127/85; PULSE 78; RESP 18; TEMP 36.4; O2SAT 93
[2022-01-23 21:20] VITALS: BP 136/79; PULSE 78; RESP 16; TEMP 36.3; O2SAT 95
--- NOTE | 2022-01-24 00:30 | NURSING ---
Spoke with Anthony From [facility] transfer center with update, as of right now no bed is available yet yet patients name still remains on the list for transfer.
[2022-01-24 05:11] VITALS: BP 139/83; PULSE 72; RESP 16; TEMP 36.4; O2SAT 96
[2022-01-24] MEDS: Dextrose 5%-Lactated Ringers 1,000 ML 75 ML IV (05:13)
[2022-01-24] MEDS: Baclofen 10 MG Tablet 5 MG PO ×2 (05:15→13:50)
[2022-01-24 06:47] LABS: Absolute Lymphocyte Count 2.13 X10^3/uL (0.83-4.51); Absolute Neutrophil Count 2.7 X10^3/uL (2.0-7.7); Basophil# 0.05 X10^3/uL; Basophil% 0.8 % (0-1); Eosinophil# 0.51 X10^3/uL; Eosinophils% 8.1 % (0-5); Hematocrit 36.3 % (40-54); Hemoglobin 12.2 g/dL (13.0-16.5); Lymphocyte # 2.13 X10^3/ul (0.83-4.51); Lymphocyte % 33.7 % (19-41); Mean Corp Hgb Conc 33.6 g/dL (32-36); Mean Corpuscular Hgb 29.5 pg (27.0-32.0); Mean Corpuscular Volume 87.9 fL (80-94); Mean Platelet Vol. 10.1 fl (6.2-12.0); Monocyte# 0.95 X10^3/uL; NRBC Flagged by Analyzer 0 % (0-5); Neutrophil # 2.66 X10^3/uL (2.7-7.7); Neutrophil % 42.1 % (47-70); Platelet Count 358 K/mm3 (150-450); RBC Distribution Width CV 12.5 % (11.6-14.6); Red Blood Count 4.13 M/mm3 (4.6-6.2); White Blood Count 6.3 K/mm3 (4.4-11.0)
[2022-01-24 07:15] LABS: Anion Gap 5 (5-15); BUN 6 mg/dL (7-18); BUN/Creat Ratio 10.7 RATIO (10-20); Calcium,Total 8.4 mg/dL (8.5-10.1); Chloride 102 mmol/L (98-107); Creatinine, Serum 0.56 mg/dL (0.70-1.30); EST Glomerular Filtration Rate 162 mL/min (>60); Est Glom Filt Rate - Afr Amer 196 mL/min (>60); Estimated Creatinine Clearance 121.36 ml/min; Glucose 113 mg/dL (74-106); Magnesium 2.1 mg/dL (1.6-2.6); Phosphorus 3.6 mg/dL (2.5-4.9); Potassium 3.6 mmol/L (3.5-5.1); Sodium Level 134 mmol/L (136-145)
--- NOTE | 2022-01-24 08:52 | DCINST_ITS ---
Discharge Instructions Diet Discharge Diet: Soft diet (Soft, minced food for next 3 days. Avoid large solid food) Activity Discharge Activity: May Not Drive Dressing / Incision Call your doctor if you observe: Fever of 101 or Higher, Coldness, Increased Pain, Numbness or Tingling, Change in Color, Inability to urinate, Inability to have a bowel movement, Shortness of breath, Dizziness, Fainting spells, Swelling in the ankles, Chest pain, Prolonged hiccupping, Increased palpitations (irregular heartbeat), Calf discomfort and Uncontrolled pain Follow Up Care Test Results: Test results from this visit will be discussed in further detail at your follow-up appointment, if applicable. Discharge Plan Admission Admit Date/Time: 01/19/22 17:18 Primary Reason for Your Visit: Small bowel obstruction Adynamic ileus colon Attending Provider: London Braden Primary Care Provider: Lyndon Sanders Consulting Providers: Dorene Ruiz Instructions Additional Instructions / Restrictions: Follow-up [facility] crm marketing specialist for outpatient colonoscopy. Discharge Orders/Prescriptions Prescriptions: New bisacodyl 10 mg Suppository 10 mg NV PRN PRN (Reason: Constipation) Qty: 0 RF: 0 Continued Linzess 72 mcg capsule 72 mcg PO DAILY RF: 0 Metamucil 3.4 gram/5.4 gram Powder 1 tbsp PO DAILY RF: 0 baclofen 5 MG tablet 5 mg PO TID Qty: 0 RF: 0 Referrals / Follow Up: Lyndon Sanders MD [Primary Care Provider] - In 1 Week Disposition Disposition (needs filled in before D/C Order can be placed): Home Health Service
[2022-01-24] MEDS: Menthol/Lanolin/Calamine/Znox 113 GM Tube 1 APPLIC TOPICAL (09:44)
[2022-01-24 09:45] VITALS: BP 146/95; PULSE 84; RESP 18; TEMP 36.3; O2SAT 97
--- NOTE | 2022-01-24 11:15 | RAD_ITS ---
HISTORY: Adymaic ileus. TECHNIQUE: XR Abdomen W/ Decub and/or Erect Views. # of images incl. paperwork: 4. COMPARISON: 01/23/2022. FINDINGS: FREE AIR: None seen on decubitus view. BOWEL GAS PATTERN: Persistent gaseous distention and dilatation of bowel again noted. Residual contrast in the colon. SOFT TISSUES: FRONT OFFICE DIRECTOR shunt catheter again seen in the right abdomen, tip in the left lower quadrant. RAD/Abd Inc Decub and/or Erect IMPRESSION: No significant interval change in gaseous distention and dilatation of bowel. at 1147 Reported and signed by: Marce Macedo MD Electronically Signed: Marce Macedo MD at 11:45 EDT ,
--- NOTE | 2022-01-24 12:24 | PCM.DC.SUM ---
Providers Date of Admission: 01/19/22 Date of Discharge: 01/24/22 Primary Care Physician: Dr. Lyndon Sanders MD Consultations 01/21/22 08:31 Consult: General Surgery Routine Consulting Provider: Dorene Ruiz Reason for Consult: SBO at ileal level, NG tube 1500 ml EMERGENT Consult: No Notified: Yes Date Notified: 01/21/22 Time Notified: 08:32 Method of Notification: Verbal 01/21/22 10:07 Consult: Gastroenterology Routine Consulting Provider: [facility] Reason for Consult: SB obstruction EMERGENT Consult: No Notified: Yes Date Notified: 01/21/22 Time Notified: 10:07 Method of Notification: Verbal Reason For Visit: SMALL BOWEL OBSTRUCTION Diagnosis Discharge Diagnosis (1) Small bowel obstruction: Status: Acute Code(s): K56.609 - Unspecified intestinal obstruction, unspecified as to partial versus complete obstruction Medications at Discharge Home Medications Linzess 72 mcg PO DAILY 07/31/21 Metamucil 1 tbsp PO DAILY 01/19/22 baclofen 5 mg PO TID #0 tab 01/24/[address] PRN PRN #0 ea 01/24/22 Hospital Course Summary of Care Provided Hospital Course: This is a 56-year-old male was admitted through ER for decreased urine output, abdominal pain. Patient has chronic indwelling Hannon catheter and her sister noticed decreased urine output after large bowel movement the night before admission on 01/19/2022. Urine output was low despite irrigation. Patient also had nausea and vomiting. 1 small bowel obstruction: CT abdomen shows small bowel obstruction with transition point in the mid ileum and distended jejunum. Multiple bladder calculi along with large callus at distal aspect of right ureter. Had bowel movement a day before yesterday. Bowel sounds present. Patient had previous bowel obstruction about 21 July 2021 and had relief with Dulcolax suppository and enema. Keep NPO. IV fluid. NG suction. Awaiting transfer to [facility]. Transfer papers signed. During hospital course, surgical consult was obtained. Small bowel series follow-through with Gastrografin reviewed. It shows gaseous distention of colon with contrast on the left side. Surgeon requested GI consult for decompression of colon. GI Dr. Haynes consulted and discussed with him. I further called [facility] for urgent transfer. He is on high-priority list but still they do not have beds open. I talked to Pt's sister, Ms. Lesli Bansal and she is agreeable for transfer to other [facility]. I called [facility] and [facility] they also do not have beds open but patient is on the list. Continue NG suction. Patient was treated with Dulcolax suppository and tap water enema. Patient had hypokalemia and hypophosphatemia electrolytes were replaced. GI was consulted to decompress colon but patient refused to do colonoscopy in [facility] rather than wanted in [facility]. Further patient had KUB subsequent days shows adynamic ileus. Patient tolerated clear liquid diet yesterday and diet advanced to soft diet. Patient had follow-up with surgeon Dr. Lopez over the weekends. On 01/24 I talked to patient's sister, I gave update about resolution of bowel obstruction. She is okay with discharging taking home but she wanted 1 more KUB. I informed KUB wouldn't show much change than yesterday but ordered as per her request.repeat KUB on 01/24 showed no significant interval change in gaseous distention and dilatation of bowel. Patient discharged home 2. History of gastroparesis patient was seen in [facility] in July 2021 for nausea and vomiting; CT abdomen and pelvis showed small bowel distention as well as gastric distention with luminal narrowing and wall thickening of the gastric antrum suggestive of possible gastritis or mass. At that time, was recommended that he be transferred to [facility] but he never got a bed though he was accepted. He did have EGD during that admission which showed a normal esophagus, normal stomach and single duodenal polyp which was resected and retrieved. Patient NG tube removed #Multiple bladder calculi has a chronic indwelling hannon catheter. UA shows evidence of UTI along with mild fever. On IV ceftriaxone. 01/23: Urine culture shows no growth. IV antibiotic ceftriaxone discontinued #History of hydrocephalus s/p shunt on seizure prophylaxis, ED DVT prophylaxis: lovenox Discharge medication reconciliation done. Discharge follow-up instructions completed. Discharge process discussed with the patient and all questions were answered to patient's satisfaction. Total time spent, exact 35 minutes on discharge meds reconciliation, examination, coordination of care with nurses and ancillary staff, review of imaging and blood test and discussion with the patient on follow-up instructions. Physical Exam Narrative Physical exam Patient did not had nausea or vomiting. Had several bowel movement and passing gas. General: Oriented x3, Cooperative. On baseline HEENT: Atraumatic, PERRLA, EOMI, Normocephalic Oral: NG tube removed. No Gingival or Mucosal Lesions/ Ulcerations Neck: Supple, No JVD, Negative Carotid Bruits Lungs: Air entry diminished in bilateral lung bases. No crepitation/rhonchi Cardiovascular: Regular rate, Regular Rhythm, Normal S1, Normal S2, No murmurs Abdomen: Bowel sound good Soft, not distended, nontender. No palpable mass : Chronic indwelling Hannon catheter. No renal angle tenderness. No suprapubic tenderness. Extremities: No edema, Capillary Refill Less than 3 Seconds Skin: No rashes, No breakdown Musculoskeletal: Muscle atrophy of bilateral lower extremity at hip knee and ankle joints with contracture and paraplegia. On wheelchair bound. ROM limited. 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 DTR 2/4. Muscle strength 2/5 at major joints of lower extremity. Psych/Mental Status: Flat affect. Weight / BMI Weight Weight: 133 lb 13.129 oz Body Mass Index (BMI) 23.7 ABG / Lab / Microbiology Data Result Diagrams: 01/24/22 05:30 01/24/22 05:30 Laboratory: Laboratory Results - last 24 hr 01/24/22 05:30: WBC 6.3, RBC 4.13 L, Hgb 12.2 L, Hct 36.3 L, MCV 87.9, MCH 29.5, MCHC 33.6, RDW Std Deviation 40.0, RDW Coeff of Frieda 12.5, Plt Count 358, MPV 10.1, Immature Gran % (Auto) 0.300, Neut % (Auto) 42.1 L, Lymph % (Auto) 33.7, [place] % (Auto) 15.0 H, Eos % (Auto) 8.1 H, Baso % (Auto) 0.8, Absolute Neuts (auto) 2.7, Absolute Lymphs (auto) 2.13, Nucleated RBC % 0 01/24/22 05:30: Sodium 134 L, Potassium 3.6, Chloride 102, Carbon Dioxide 27.0, Anion Gap 5, BUN 6 L, Creatinine 0.56 L, Estim Creat Clear Calc 121.36, Est GFR (MDRD) Af Amer 196, Est GFR (MDRD) Non-Af 162, BUN/Creatinine Ratio 10.7, Glucose 113 H, Calcium 8.4 L, Phosphorus 3.6, Magnesium 2.1 Microbiology: Microbiology 01/19/22 08:50 Urine, Random Urine Culture - Final Culture exhibits no growth. 01/19/22 11:04 Nasal Secretion SARS-CoV-2 Antigen (Rapid) - Final Meaningful Use Info Meaningful Use Diagnoses (Choose all that apply): None applicable Discharge Plan Admission Admit Date/Time: 01/19/22 17:18 Primary Reason for Your Visit: Small bowel obstruction Adynamic ileus colon Attending Provider: London Braden Primary Care Provider: Lyndon Sanders Consulting Providers: Dorene Ruiz Instructions Additional Instructions / Restrictions: Follow-up [facility] scorer helper for outpatient colonoscopy. Discharge Orders/Prescriptions Prescriptions: New bisacodyl 10 mg Suppository [address] PRN PRN (Reason: Constipation) Qty: 0 RF: 0 Continued Linzess 72 mcg capsule 72 mcg PO DAILY RF: 0 Metamucil 3.4 gram/5.4 gram Powder 1 tbsp PO DAILY RF: 0 baclofen 5 MG tablet 5 mg PO TID Qty: 0 RF: 0 Referrals / Follow Up: Lyndon Sanders MD [Primary Care Provider] - In 1 Week Disposition Disposition (needs filled in before D/C Order can be placed): Home Health Service Charges/Coding Visit Charges Inpatient E&M: 21494 Disch Hosp
--- NOTE | 2022-01-24 12:27 | NURSING ---
talked with case mgmt Anita Seals regarding discharge planning. aware ok to go ahead with discharge and they will follow up with C needs tomorrow.
[2022-01-24 15:15] VITALS: BP 137/85; PULSE 72; RESP 18; TEMP 36.7; O2SAT 98
--- NOTE | 2022-01-25 14:49 | CASEMGMT ---
NEIL EATON called and spoke with daughter Lesli regarding need for HHC. Lesli declined HHC services at this time. 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 Sister has scheduled follow-up with wood floor refinisher Rafita at [facility]. Lesli aware to schedule follow-up appt with PCP. NEIL EATON informed sister that should she reconsider HHC to follow-up with PCP. Lesli voiced understanding. No further questions or concerns at this time.
== END 2022-01-24 16:33 | disposition home or self-care (01) | DRG 389 ==
LOC: ED 16:34 → MS3 17:23
PROVIDERS: Admitting Provider Student in an Organized Health Care Education/Training Program; Emergency Provider Emergency Medicine; PCP Family Medicine; Visit Provider Internal Medicine
DX: K56.609 Unspecified intestinal obstruction, unspecified as to partial versus complete obstruction (principal); N20.1 Calculus of ureter; E87.1 Hypo-osmolality and hyponatremia; Q03.9 Congenital hydrocephalus, unspecified; G83.10 Monoplegia of lower limb affecting unspecified side; G40.909 Epilepsy, unspecified, not intractable, without status epilepticus; K56.0 Paralytic ileus; I10 Essential (primary) hypertension; E87.6 Hypokalemia; K31.84 Gastroparesis; Z98.2 Presence of cerebrospinal fluid drainage device; K63.89 Other specified diseases of intestine; Z79.899 Other long term (current) drug therapy
CPT/HCPCS: 36415; 74018; 74019; 74176; 74250; 80048; 80076; 81001; 83735; 84100; 84132; 85025; 87086; 87426; 94640; 99251; 99285; J7030; J7040; J7050; J7120; A4216; G0463; J2405; J3490; J7799

== ENCOUNTER 2022-03-07 19:59 | Emergency (ER) | payer MEDICARE, MEDICAID, SELFPAY ==
[2022-03-07 20:00] VITALS: BP 134/88; PULSE 91; RESP 16; TEMP 36.6; O2SAT 98; BMI 24.4
--- NOTE | 2022-03-07 20:20 | EX.ED.GUMALE ---
HPI History of Present Illness Chief Complaint: Bowman C/O Informant: patient and family Pain Onset: Today Narrative Narrative: Leaking from around catheter today. Has a Bowman catheter because of bladder stones, recurrent urinary retention. Follows with urology at [facility]. No fevers, chills, blood. The catheter has still been draining urine off and on all day today. A family member who is a nurse flushed the catheter earlier in the day and she said it flushed without any difficulty, and the catheter still been draining. They said that the catheter is beyond due for changing, and they had to have that rescheduled for about 2 weeks from now. He denies any abdominal discomfort, he denies feelings of urinary retention. No fevers, chills, nausea, vomiting, abdominal pain. PFSH PFSH Medical History Chronic indwelling Bowman catheter Gastroparesis Hydrocephalus Hypertension Ileus Seizures Home Medications Linzess 72 mcg PO DAILY 07/31/21 [History Last Taken 01/18/22] Metamucil 1 tbsp PO DAILY 01/19/22 [History Last Taken 01/17/22] baclofen 5 mg PO TID #0 tab 01/24/22 [Rx Last Taken 01/19/22 06:00] bisacodyl 10 mg [place] PRN PRN #0 ea 01/24/22 [Rx Last Taken Unknown] doxycycline monohydrate 100 mg PO BID #14 capsule 03/07/22 [Rx Last Taken Unknown] Allergy/AdvReac Type Severity Reaction Status Date / Time Iodinated Contrast Media Allergy Anaphylaxis Verified 03/07/22 20:01 [Iodinated Contrast Media - IV Dye] nitrofurantoin AdvReac Upset Verified 03/07/22 20:01 Stomach Family History Other Cancer Heart disease Peptic ulcer disease Surgical History S/P FRIT MIXER shunt Social History Smoking Status: Never smoker ROS ROS ED Constitutional Constitutional ED: Denies chills or fever(s) Eyes Eyes: Denies change in vision or diplopia ENT ENT ED: Denies rhinorrhea or sore throat Cardiovascular Cardiovascular: Denies chest pain or palpitations Respiratory/Chest Respiratory/Chest: Denies cough or dyspnea Gastrointestinal Gastrointestinal: Denies abdominal pain, diarrhea, nausea or vomiting Genitourinary Genitourinary ED: Reports as per HPI; Denies dysuria or hematuria Musculoskeletal Musculoskeletal: Denies back pain or neck pain Integumentary Denies abscess or rash Neurologic Neurologic: Denies headache(s), paresthesias or weakness Psychiatric Psychiatric: Denies anxiety or suicidal thoughts EXAM Physical Exam Const Vital Signs: 03/07/22 20:00 Temperature 97.8 F Temperature Source Temporal Pulse Rate 91 Respiratory Rate 16 Blood Pressure 134/88 H Blood Pressure Mean 103 Pulse Ox 98 Oxygen Delivery Method Room Air Positive well nourished and well developed General Appearance ED: well developed and NAD Eyes PERRL and EOMs intact bilaterally Neck full ROM and supple Resp normal respiratory effort and clear to auscultation bilaterally Cardio regular rate, regular rhythm and no murmurs GI non-tender and non-distended Auscultation: normoactive bowel sounds Palpation: soft Narrative: Bowman catheter in place, urine is in the bag and transparent yellow nonbloody. There is thick discharge around the catheter to urethral meatus which is not erythematous or tender. Back/Spine no CVA tenderness General Back: other FROM Extremity normal to inspection General Extremety ED: Negative for edema, pulses abnormal or tenderness General Extremity: Negative for edema or pulses abnormal Neuro oriented x3 and CN's II-XII intact bilaterally Sensorium / Orientation: awake and alert Skin no rashes or lesions noted and no wounds MDM MDM MDM Narrative Medical decision making narrative: We did remove the patient's Bowman, it was kinked near the end, before she removed it and I did the calculus flowing. Replace it with a new Bowman catheter, urine did start flowing after that and after an hour or so, there were a couple 100 cc of urine. Unknown if the old one was obstructed for sure not, I do not think it was, however since he was past due getting it changed I think it was worth changing it out rather than just flushing it again since it did appear to have some urethral discharge around it. His urine looks clear. We will send it for culture, and I had nursing send a culture of the discharge around the catheter, however I think it was not obtained until after she put the new catheter in. We will place him on doxycycline for 1 week and have him follow-up. Discharge Plan Triage Chief Complaint: Bowman C/O ED Provider: Bennett Olivarez Dx/Rx/DC Orders Clinical Impression: Encounter for Bowman catheter replacement, Urethritis Instructions: Urethritis in Men Prescriptions: New doxycycline monohydrate 100 MG capsule 100 mg PO BID Qty: 14 RF: 0 No Action Linzess 72 mcg capsule 72 mcg PO DAILY RF: 0 Metamucil 3.4 gram/5.4 gram Powder 1 tbsp PO DAILY RF: 0 bisacodyl 10 mg Suppository 10 mg IA PRN PRN (Reason: Constipation) Qty: 0 RF: 0 baclofen 5 MG tablet 5 mg PO TID Qty: 0 RF: 0 Primary Care Provider: Lyndon Sanders Referrals: Lyndon Sanders MD [Primary Care Provider] - 3-5 Days (For reevaluation and review of culture results) Disposition Disposition: Home, Self Care
[2022-03-07] MEDS: Doxycycline 100 MG CAPSULE PO (22:00)
[2022-03-07 22:02] VITALS: PULSE 82; RESP 15; O2SAT 97
== END 2022-03-07 22:07 | disposition home or self-care (01) ==
PROVIDERS: Emergency Provider Emergency Medicine; PCP Family Medicine; Visit Provider Emergency Medicine
DX: T83.038A Leakage of other urinary catheter, initial encounter (principal); N34.2 Other urethritis; Z79.899 Other long term (current) drug therapy; X58.XXXA Exposure to other specified factors, initial encounter
CPT/HCPCS: 51702; 87077; 87086; 87088; 87186; 99284

== ENCOUNTER 2022-03-27 00:49 | Emergency (ER) | payer MEDICARE, MEDICAID, SELFPAY ==
[2022-03-27 00:50] VITALS: BP 137/101; PULSE 81; RESP 16; TEMP 36.6; O2SAT 96; BMI 22.5
[2022-03-27 01:40] LABS: Mucous, Urine 0 SEEN /hpf (<or=2+); Squamous Epithelial Cells - UA 0 SEEN /hpf (0-5)
[2022-03-27 01:47] LABS: Color, Urine Yellow (Yellow); Glucose, Dipstick Normal (Normal); Ketone-Dipstick Negative (Negative); Leukocyte Esterase-Dipstick 500 /ul (Negative); Nitrite-Dipstick Negative (Negative); Occult Blood-Urine 150 /ul (Negative); Protein-Dipstick 30 mg/dl (Negative); Urine Bilirubin Dipstick Negative (Negative); Urine Clarity Sl. Cloudy (Clear); Urine Urobilinogen Normal (Normal)
[2022-03-27 01:57] LABS: Bacteria 2+ /hpf (None Seen); White Blood Cells 50-100 SEEN /hpf (0-5)
[2022-03-27 01:59] LABS: Red Blood Cells-Urine 5-10 SEEN /hpf (0-5)
--- NOTE | 2022-03-27 02:02 | EDS_ITS ---
HPI History of Present Illness Chief Complaint: Bowman C/O Narrative Narrative: 56-year-old male presenting with urinary retention. Family states its been about 2 hours. Patient has history of urinary retention and indwelling Bowman catheter which is chronic. Patient does not usually make it 30 days with a Bowman catheter reported to be changed. They see Dr. Virgen as an outpatient urologist. Patient feeling otherwise well before the blockage. No fevers or chills. No abdominal pain. PFSH PFSH Medical History Chronic indwelling Bowman catheter Gastroparesis Hydrocephalus Hypertension Ileus Seizures Home Medications Linzess 72 mcg PO DAILY 07/31/21 [History Last Taken 01/18/22] Metamucil 1 tbsp PO DAILY 01/19/22 [History Last Taken 01/17/22] baclofen 5 mg PO TID #0 tab 01/24/22 [Rx Last Taken 01/19/22 06:00] bisacodyl 10 mg [place] PRN PRN #0 ea 01/24/22 [Rx Last Taken Unknown] doxycycline monohydrate 100 mg PO BID #14 capsule 03/07/22 [Rx Last Taken Unknown] ciprofloxacin HCl 500 mg PO BID #14 tab 03/27/22 [Rx Last Taken Unknown] Allergy/AdvReac Type Severity Reaction Status Date / Time Iodinated Contrast Media Allergy Anaphylaxis Verified 03/07/22 20:01 [Iodinated Contrast Media - IV Dye] nitrofurantoin AdvReac Upset Verified 03/07/22 20:01 Stomach Family History Other Cancer Heart disease Peptic ulcer disease Surgical History 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 Social History Smoking Status: Never smoker ROS ROS ED Constitutional Constitutional ED: Denies chills or fever(s) Eyes Eyes: Denies blurry vision ENT ENT ED: Denies rhinorrhea or sore throat Cardiovascular Cardiovascular: Denies chest pain or palpitations Respiratory/Chest Respiratory/Chest: Denies cough or dyspnea Gastrointestinal Gastrointestinal: Denies abdominal pain or nausea Genitourinary Genitourinary ED: Reports other Details: Urinary retention Musculoskeletal Musculoskeletal: Denies arthralgias or myalgias Integumentary Denies rash Neurologic Neurologic: Denies headache(s) Psychiatric Psychiatric: Denies anxiety or depression EXAM Physical Exam Const Vital Signs: 03/27/22 00:50 Temperature 97.9 F Temperature Source Temporal Pulse Rate 81 Respiratory Rate 16 Blood Pressure 137/101 H Blood Pressure Mean 113 Pulse Ox 96 Oxygen Delivery Method Room Air Positive well nourished General Appearance ED: NAD; Negative for pallor HEENT normocephalic and atraumatic Eyes PERRL and EOMs intact bilaterally Cardio regular rate and regular rhythm GI non-tender and non-distended Palpation: soft Penis: normal penis Neuro oriented x3, CN's II-XII intact bilaterally, no focal motor deficits and no sensory deficits noted Sensorium / Orientation: alert Psych mental status grossly normal Skin General Skin Exam: Negative for jaundice or pallor Lesions: no lesions Rashes: no rashes MDM MDM MDM Narrative Medical decision making narrative: Patient presenting after 2 hours of urinary retention. Bowman catheter changed and urine is yellow/clear. Urinalysis shows 500 leukocyte esterase, 50-100 white blood cells, 2+ bacteria. Discussed with the patient and family at length that patient will always be colonized. Family has concerned that he might have a UTI and wants to be covered for infection. They say Cipro normally helps. I looked at the urine culture from 4 and patient was sensitive to Cipro. Patient will be given ciprofloxacin for home with first dose in the ER. Impression: 1 Bowman obstruction 2. UTI Lab Data Attestation: I reviewed the patient's lab results. Labs: Laboratory Results - last 24 hr 03/27/22 01:35 Urine Color Yellow Urine Clarity Sl. Cloudy Urine pH 7.0 Ur Specific [place] 1.010 Urine Protein 30 H Urine Glucose (UA) Normal Urine Ketones Negative Urine Occult Blood 150 H Urine Nitrite Negative Urine Bilirubin Negative Urine Urobilinogen Normal Ur Leukocyte Esterase 500 H Urine RBC 5-10 SEEN Urine WBC 50-100 SEEN Ur Squamous Epith Cells 0 SEEN Urine Bacteria 2+ Urine Mucus 0 SEEN Discharge Plan Triage Chief Complaint: Bowman C/O ED Provider: Rivera Dodge Dx/Rx/DC Orders Instructions: ED Bowman Catheter, Care, ED Bladder Infection, Male (Adult) Prescriptions: New ciprofloxacin HCl 500 mg tablet 500 mg PO BID Qty: 14 RF: 0 No Action Linzess 72 mcg capsule 72 mcg PO DAILY RF: 0 Metamucil 3.4 gram/5.4 gram Powder 1 tbsp PO DAILY RF: 0 bisacodyl 10 mg Suppository 10 mg [place] PRN PRN (Reason: Constipation) Qty: 0 RF: 0 baclofen 5 MG tablet 5 mg PO TID Qty: 0 RF: 0 doxycycline monohydrate 100 MG capsule 100 mg PO BID Qty: 14 RF: 0 Primary Care Provider: Lyndon Sanders Referrals: Lyndon Sanders MD [Primary Care Provider] - Disposition Disposition: Home, Self Care
[2022-03-27] MEDS: Ciprofloxacin 500 MG Tablet PO (02:21)
[2022-03-27 02:24] VITALS: BP 136/88; PULSE 86; RESP 18; O2SAT 94
== END 2022-03-27 02:47 | disposition home or self-care (01) ==
PROVIDERS: Emergency Provider Student in an Organized Health Care Education/Training Program; PCP Family Medicine; Visit Provider Student in an Organized Health Care Education/Training Program
DX: T83.89XA Other specified complication of genitourinary prosthetic devices, implants and grafts, initial encounter (principal); N39.0 Urinary tract infection, site not specified; R33.9 Retention of urine, unspecified; Z79.899 Other long term (current) drug therapy; X58.XXXA Exposure to other specified factors, initial encounter
CPT/HCPCS: 51702; 81001; 87077; 87086; 87088; 87186; 99284

== ENCOUNTER 2022-04-13 20:31 | Emergency (ER) | payer MEDICARE, MEDICAID, SELFPAY ==
[2022-04-13 20:32] VITALS: BP 138/97; PULSE 105; RESP 16; TEMP 37; O2SAT 93; BMI 22.1
--- NOTE | 2022-04-13 20:53 | CT_ITS ---
INDICATION: Abdominal distenstion EXAMINATION: CT ABDOMEN AND PELVIS WITHOUT CONTRAST - CT Abdomen And Pelvis W/O Contrast Injection TECHNIQUE: Helically acquired images were obtained of the abdomen and pelvis without oral or IV contrast. A radiation dose optimization technique was used for this scan. IV Contrast dosage and agent: None. Oral contrast: None. COMPARISON: 01/19/2022 CT abdomen and pelvis. FINDINGS: LOWER CHEST: Lung bases are within normal limits of the exam; moderate motion artifact. No cardiomegaly or pericardial effusion. LIVER: Small versus absent left hepatic lobe, unchanged. No focal mass. GALLBLADDER AND BILIARY TREE: No calcified gallstones. Collapsed gallbladder. No intra- or extrahepatic biliary ductal dilation. PANCREAS: No focal cystic or solid mass. SPLEEN: Normal size without focal cystic or solid mass. ADRENAL GLANDS: No nodules. KIDNEYS, URETERS and BLADDER: Left inferior pole exophytic hypodensity measuring 30 HOUNSFIELD units, not clearly consistent with simple cyst. Correlation with ultrasound is recommended. There is mild left ureteral pelvic caliectasis, unchanged. Nonobstructing stone left kidney. Urinary bladder calcifications are again demonstrated. A knuckle of the bladder extends into a left inguinal hernia. Several bladder calcifications are seen within this herniated portion of the bladder in the inguinal canal. Fat filled right inguinal canal. Right distal ureteral region, roughly 2 x 2.4 cm, unchanged. PERITONEUM: No ascites or free air. No other fluid collection. Peritoneal drain likely representing ventriculoperitoneal shunt tubing. BOWEL: Visualized distal esophagus is patulous and contains an air-fluid level. Stomach is moderately distended. There are multiple distended proximal small bowel loops and air-fluid levels, not significantly changed in appearance compared to the prior exam. No surrounding inflammatory changes. The more distal small bowel is normal caliber, without collapse. No suspicious focal transition point. No appreciable mass or inflammatory changes. LYMPH NODES: No enlarged mesenteric or retroperitoneal lymph nodes. VESSELS: Aorta is non-dilated. REPRODUCTIVE ORGANS: No prostate enlargement. ABDOMINAL WALL: No discrete abdominal or pelvic wall hernia. BONES: Chronic degenerative morphologic changes left hip. Age expected degenerative changes of the spine. No fracture. No lytic or blastic bone lesion. CT/Abdomen/Pelvis without Cont IMPRESSION: No significant change compared to prior exam 01/19/2022 showing abnormally distended stomach and proximal small bowel loops. There is however no suspicious transition point or other findings to suggest significant obstruction. No inflammatory changes. Left kidney and urinary bladder stones. Right peripelvic 2 cm stone/calcification along with a expected course of the right ureter which is not well delineated. This is unchanged. Bilateral inguinal hernias. A portion of the urinary bladder containing stones and some air, are herniated into the left inguinal canal. This is new. Exophytic hypodensity left kidney shows 30 HOUNSFIELD units on today''s exam but only 13 HOUNSFIELD units on the prior exam. Consider renal ultrasound to exclude solid mass. Chronic degenerative and morphologic changes left hip. Electronically Signed: Myke Almaguer DO at 22:14 EDT ,
--- NOTE | 2022-04-13 20:54 | EX.ED.DYSGE1 ---
HPI History of Present Illness Chief Complaint: Abd Pain Informant: family Narrative Narrative: 56-year-old male brought into the emergency department with his sister who is one of the primary caregivers. He has a history of hydrocephalus wheelchair-bound. He has had 2 prior small bowel obstructions last January and last fall. She states that last night she noticed significant decrease in urinary output of only 150 cc. Decreased p.o. today and this afternoon abdominal distention with nausea and vomiting. Patient has gastroparesis and undergoes a bowel regimen each morning which includes manual disimpaction and enema. She states that he did have a large bowel movement this morning followed by liquid stool this afternoon. Almost all of his doctors are in [facility]. He has a local PCP here in town. [facility] Medical History Chronic indwelling Bowman catheter Gastroparesis Hydrocephalus Hypertension Ileus Seizures Home Medications Linzess 72 mcg PO DAILY 07/31/21 [History Last Taken 01/18/22] baclofen 5 mg PO TID #0 tab 01/24/22 [Rx Last Taken 01/19/22 06:00] bisacodyl 10 mg [place] DAILY 04/13/22 [History Last Taken Unknown] mineral oil 30 ml PO DAILY PRN 04/13/22 [History Last Taken Unknown] Allergy/AdvReac Type Severity Reaction Status Date / Time Iodinated Contrast Media Allergy Anaphylaxis Verified 04/13/22 20:35 [Iodinated Contrast Media - IV Dye] nitrofurantoin AdvReac Upset Verified 04/13/22 20:35 Stomach Family History Other Cancer Heart disease Peptic ulcer disease Surgical History 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 Arian Ching DO) current gender identity: male Smoking Status: Never smoker substance use type: does not use ROS ROS ED Constitutional Constitutional ED: Denies chills or weight loss Eyes Eyes: Denies change in vision or diplopia ENT ENT ED: Denies ear pain, rhinorrhea or sore throat Cardiovascular Cardiovascular: Denies chest pain, orthopnea, palpitations or racing heartbeat Respiratory/Chest Respiratory/Chest: Denies cough, dyspnea or orthopnea Gastrointestinal Gastrointestinal: Reports abdominal pain, constipation, nausea, vomiting and other Details: Abdominal distention ; Denies diarrhea Genitourinary Genitourinary ED: Reports other Details: Chronic indwelling Bowman. Decreased urinary output ; Denies dysuria, hematuria or urinary frequency Musculoskeletal Musculoskeletal: Denies arthralgias or myalgias Integumentary Denies abscess or rash Neurologic Neurologic: Denies headache(s) or weakness Psychiatric Psychiatric: Denies anxiety, depression, suicidal ideation or suicidal thoughts Endocrine Endocrinology: Denies polydipsia, polyphagia or polyuria Allergic/Immunologic Allergic/Immunologic ED: Denies mouth swelling, tongue swelling or urticaria EXAM Physical Exam Const Vital Signs: 04/13/22 20:32 04/13/22 22:00 04/13/22 22:02 Temperature 98.6 F 98.1 F 98.1 F Temperature Source Temporal Oral Oral Pulse Rate 105 H 94 94 Respiratory Rate 16 16 16 Blood Pressure 138/97 H 141/101 H 141/101 H Blood Pressure Mean 110 114 114 Pulse Ox 93 96 96 Oxygen Delivery Method Room Air Room Air Room Air Positive well nourished and well developed General Appearance ED: well developed HEENT Reports normocephalic, head/scalp atraumatic, TM's clear and moist mucous membranes Negative for trauma Tympanic Membrane ED: Yes TM's clear Eyes PERRL and EOMs intact bilaterally Neck no lymphadenopathy, supple and no JVD Resp normal respiratory effort and clear to auscultation bilaterally Cardio regular rate and no murmurs Rate: tachycardic GI non-tender Inspection: abdominal distention Auscultation: normoactive bowel sounds Palpation: soft; Negative for tender, guarding or rebound tenderness present Back/Spine no CVA tenderness and normal ROM Extremity normal to inspection General Extremety ED: Negative for edema General Extremity: Negative for edema Neuro Sensorium / Orientation: alert Psych Mood & Affect: Negative for depressed or tearful Skin no rashes or lesions noted and no wounds MDM MDM MDM Narrative Medical decision making narrative: White count nonspecifically elevated 13.2 hemoglobin 15.4. Lactic acid is normal at 0.8. Sodium is low at 123. CT abdomen pelvis was obtained. This was not performed with IV contrast due to his anaphylaxis and no oral contrast due to his vomiting. This demonstrated an abnormally distended stomach and proximal small bowel loops. There is no obvious transition point however. Patient received hydration. NG tube will be placed. Family is requesting transfer to [facility]. Lab Data Attestation: I reviewed the patient's lab results. Labs: Laboratory Results - last 24 hr 04/13/22 04/13/22 04/13/22 20:40 20:40 20:40 WBC 13.2 H RBC 5.30 Hgb 15.4 Hct 44.9 MCV 84.7 MCH 29.1 MCHC 34.3 RDW Std Deviation 38.8 RDW Coeff of Frieda 12.6 Plt Count 484 H MPV 9.9 Immature Gran % (Auto) 0.400 Neut % (Auto) 79.1 H Lymph % (Auto) 10.6 L [place] % (Auto) 9.7 Eos % (Auto) 0.0 Baso % (Auto) 0.2 Absolute Neuts (auto) 10.5 H Absolute Lymphs (auto) 1.41 Nucleated RBC % 0 Sodium 123 L Potassium 3.6 Chloride 86 L Carbon Dioxide 26.0 Anion Gap 11 BUN 24 H Creatinine 0.98 Estim Creat Clear Calc 69.11 Est GFR (MDRD) Af Amer 102 Est GFR (MDRD) Non-Af 85 BUN/Creatinine Ratio 24.5 H Glucose 122 H Lactic Acid 0.8 Calcium 9.4 Total Bilirubin 1.10 H AST 16 ALT 22 Alkaline Phosphatase 74 Total Protein 8.1 Albumin 3.7 Globulin 4.4 H Albumin/Globulin Ratio 0.8 L Lipase 66 L Urine Color Urine Clarity Urine pH Ur Specific [place] Urine Protein Urine Glucose (UA) Urine Ketones Urine Occult Blood Urine Nitrite Urine Bilirubin Urine Urobilinogen Ur Leukocyte Esterase 04/13/22 21:48 WBC RBC Hgb Hct MCV MCH MCHC RDW Std Deviation RDW Coeff of Frieda Plt Count MPV Immature Gran % (Auto) Neut % (Auto) Lymph % (Auto) [place] % (Auto) Eos % (Auto) Baso % (Auto) Absolute Neuts (auto) Absolute Lymphs (auto) Nucleated RBC % Sodium Potassium Chloride Carbon Dioxide Anion Gap BUN Creatinine Estim Creat Clear Calc Est GFR (MDRD) Af Amer Est GFR (MDRD) Non-Af BUN/Creatinine Ratio Glucose Lactic Acid Calcium Total Bilirubin AST ALT Alkaline Phosphatase Total Protein Albumin Globulin Albumin/Globulin Ratio Lipase Urine Color Yellow Urine Clarity Sl. Cloudy Urine pH 6.5 Ur Specific [place] 1.010 Urine Protein 30 H Urine Glucose (UA) Normal Urine Ketones 15 H Urine Occult Blood 250 H Urine Nitrite Negative Urine Bilirubin Negative Urine Urobilinogen Normal Ur Leukocyte Esterase 500 H Radiography Diagnostic Testing: Clinical Impression(s) from Imaging Studies Abdomen/Pelvis CT 04/13/22 20:53 IMPRESSION: No significant change compared to prior exam 01/19/2022 showing abnormally distended stomach and proximal small bowel loops. There is however no suspicious transition point or other findings to suggest significant obstruction. No inflammatory changes. Left kidney and urinary bladder stones. Right peripelvic 2 cm stone/calcification along with a expected course of the right ureter which is not well delineated. This is unchanged. Bilateral inguinal hernias. A portion of the urinary bladder containing stones and some air, are herniated into the left inguinal canal. This is new. Exophytic hypodensity left kidney shows 30 HOU[place]FIELD units on today''s exam but only 13 HOUNSFIELD units on the prior exam. Consider renal ultrasound to exclude solid mass. Chronic degenerative and morphologic changes left hip. Electronically Signed: Myke Almaguer DO at 22:14 EDT , Discharge Plan Dx/Rx/DC Orders Clinical Impression: Vomiting, Acute hyponatremia, Partial obstruction of small intestine, Acute dehydration Disposition Disposition: Acute Care [facility]
[2022-04-13] MEDS: 0.9% Normal Saline 1,000 ML 1000 ML IV (20:59)
[2022-04-13] MEDS: Ondansetron 4 MG/2 ML Vial IV (21:00)
[2022-04-13 21:07] LABS: Absolute Lymphocyte Count 1.41 X10^3/uL (0.83-4.51); Absolute Neutrophil Count 10.5 X10^3/uL (2.0-7.7); Basophil# 0.02 X10^3/uL; Basophil% 0.2 % (0-1); Hematocrit 44.9 % (40-54); Hemoglobin 15.4 g/dL (13.0-16.5); Lymphocyte # 1.41 X10^3/ul (0.83-4.51); Lymphocyte % 10.6 % (19-41); Mean Corp Hgb Conc 34.3 g/dL (32-36); Mean Corpuscular Hgb 29.1 pg (27.0-32.0); Mean Corpuscular Volume 84.7 fL (80-94); Mean Platelet Vol. 9.9 fl (6.2-12.0); Monocyte# 1.28 X10^3/uL; Monocyte% 9.7 % (0-10); NRBC Flagged by Analyzer 0 % (0-5); Neutrophil # 10.48 X10^3/uL (2.7-7.7); Neutrophil % 79.1 % (47-70); Platelet Count 484 K/mm3 (150-450); RBC Distribution Width CV 12.6 % (11.6-14.6); RBC Distribution Width SD 38.8 fl (35.1-43.9); White Blood Count 13.2 K/mm3 (4.4-11.0)
[2022-04-13 21:24] LABS: ALB/GLOB Ratio 0.8 RATIO (0.9-2.4); AST(SGOT) 16 U/L (15-37); Alanine Aminotransfer ALT/SGPT 22 U/L (16-61); Albumin, Serum 3.7 g/dL (3.2-5.0); Alkaline Phosphatase 74 U/L (45-117); Anion Gap 11 (5-15); BUN 24 mg/dL (7-18); BUN/Creat Ratio 24.5 RATIO (10-20); Calcium,Total 9.4 mg/dL (8.5-10.1); Chloride 86 mmol/L (98-107); Creatinine, Serum 0.98 mg/dL (0.70-1.30); EST Glomerular Filtration Rate 85 mL/min (>60); Est Glom Filt Rate - Afr Amer 102 mL/min (>60); Estimated Creatinine Clearance 69.11 ml/min; Globulin 4.4 g/dL (2.2-4.2); Glucose 122 mg/dL (74-106); Lipase 66 U/L (73-393); Potassium 3.6 mmol/L (3.5-5.1); Protein, Total 8.1 g/dL (6.4-8.2); Sodium Level 123 mmol/L (136-145)
[2022-04-13 21:44] LABS: Lactic Acid 0.8 mmol/L (0.4-1.9)
[2022-04-13 22:00] VITALS: BP 141/101; PULSE 94; RESP 16; TEMP 36.7; O2SAT 96
[2022-04-13 22:02] VITALS: BP 141/101; PULSE 94; RESP 16; TEMP 36.7; O2SAT 96
[2022-04-13 22:21] LABS: Color, Urine Yellow (Yellow); Glucose, Dipstick Normal (Normal); Ketone-Dipstick 15 mg/dl (Negative); Leukocyte Esterase-Dipstick 500 /ul (Negative); Nitrite-Dipstick Negative (Negative); Occult Blood-Urine 250 /ul (Negative); Protein-Dipstick 30 mg/dl (Negative); Urine Bilirubin Dipstick Negative (Negative); Urine Clarity Sl. Cloudy (Clear); Urine Urobilinogen Normal (Normal); Urine pH 6.5 (5.0 - 8.0)
[2022-04-13 22:31] LABS: Bacteria 2+ /hpf (None Seen); Calcium Oxalate Crystals Ur 1+ /hpf (<or=2+); Mucous, Urine 1+ /hpf (<or=2+); Red Blood Cells-Urine 5-10 SEEN /hpf (0-5); Squamous Epithelial Cells - UA 0-5 SEEN /hpf (0-5); White Blood Cells 10-25 SEEN /hpf (0-5)
[2022-04-13 22:32] LABS: Hyaline Cast 0-5 SEEN /lpf (0-5)
--- NOTE | 2022-04-13 22:55 | RAD_ITS ---
INDICATION: NG Insertion EXAMINATION/TECHNIQUE: X-RAY - portable, upright XR Abdomen 1 View COMPARISON: CT abdomen and pelvis from earlier the same evening. Also compared with [facility] [address] [facility] x-rays. FINDINGS: BOWEL GAS PATTERN: New enteric tube with the tip in the lateral aspect of the upper, mid abdomen likely representing persistently distended stomach. Prominent air-filled small bowel loops are again demonstrated. FREE AIR: None. ORGANOMEGALY: Not exemplified. CALCIFICATIONS: No abnormal calcifications observed. LOWER CHEST: Clear. BONES AND SOFT TISSUES: Ventriculoperitoneal shunt tubing looped in the abdomen. RAD/Abdomen Single View (Portable) IMPRESSION: Enteric tube with a somewhat atypical position of the distal tip in the more lateral left upper quadrant. Positioning may be due to persistent distention. No appreciable change in multiple, prominent air-filled small bowel loops. Electronically Signed: Myke Almaguer DO at 23:46 EDT ,
[2022-04-13 23:00] VITALS: BP 139/85; PULSE 95; RESP 16; TEMP 36.9; O2SAT 92
[2022-04-13] MEDS: Ceftriaxone 1 GM/50 ML BAG IV (23:51)
[2022-04-14 00:05] VITALS: BP 129/83; PULSE 96; RESP 16; O2SAT 91
[2022-04-14 01:00] VITALS: BP 124/73; PULSE 97; RESP 16; O2SAT 93
== END 2022-04-14 01:05 | disposition short-term general hospital (02) ==
PROVIDERS: Emergency Provider Emergency Medicine; PCP Family Medicine; Visit Provider Emergency Medicine
DX: E87.1 Hypo-osmolality and hyponatremia (principal); K56.600 Partial intestinal obstruction, unspecified as to cause; E86.0 Dehydration; Z99.3 Dependence on wheelchair
CPT/HCPCS: 74018; 74176; 80053; 81001; 83605; 83690; 85025; 87040; 87077; 87086; 87088; 87811; 96365; 96375; 99285; J7030; A4216; J2405

== ENCOUNTER 2022-07-05 12:23 | Emergency (ER) | payer MEDICARE, MEDICAID, SELFPAY ==
[2022-07-05 12:24] VITALS: BP 151/93; PULSE 86; RESP 15; TEMP 36.6; O2SAT 98; BMI 22.1
--- NOTE | 2022-07-05 13:17 | EX.ED.DYSGE1 ---
HPI History of Present Illness Chief Complaint: Bowman C/O Detail of Chief Complaint: Leaking Bowman cath Informant: patient and family Onset/Context/Timing Onset: Days Narrative Narrative: Patient presents with leaking Bowman catheter. Catheter was changed on the . 3 days later they noted that the catheter started leaking around where the catheter enters the end of his penis. He states he at times will get pressure in the suprapubic area. He did have normal urine output overnight, but has had some decreased urine output over the past several days. [facility] Medical History Chronic indwelling Bowman catheter Gastroparesis Hydrocephalus Hypertension Ileus Kidney stones Seizures Home Medications linaclotide 72 mcg capsule (Linzess) 72 mcg PO DAILY 07/31/21 [History Last Taken 01/18/22] baclofen 5 mg tablet 5 mg PO TID #0 tabs 01/24/22 [Rx Last Taken 01/19/22 06:00] bisacodyl 10 mg rectal suppository 10 mg DE DAILY 04/13/22 [History Last Taken Unknown] mineral oil 30 ml PO DAILY PRN Constipation 04/13/22 [History Last Taken Unknown] cephalexin 500 mg capsule 500 mg PO Q12 #14 caps 07/05/22 [Rx Last Taken Unknown] Allergy/AdvReac Type Severity Reaction Status Date / Time Iodinated Contrast Media Allergy Anaphylaxis Verified 07/05/22 12:24 [Iodinated Contrast Media - IV Dye] nitrofurantoin AdvReac Upset Verified 07/05/22 12:24 Stomach Family History Father Heart disease Kidney stones Prostate disease Brother Kidney stones Other Cancer Peptic ulcer disease Surgical History S/P release of urethral stricture 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 Social History household members: family Smoking Status: Never smoker alcohol intake: never substance use type: does not use ROS ROS ED Constitutional Constitutional ED: Denies chills or fever(s) Eyes Eyes: Denies change in vision or discharge from eye(s) ENT ENT ED: Denies discharge from eye(s), rhinorrhea or sore throat Cardiovascular Cardiovascular: Denies chest pain or palpitations Respiratory/Chest Respiratory/Chest: Denies cough or dyspnea Gastrointestinal Gastrointestinal: Reports abdominal pain; Denies diarrhea, nausea or vomiting Musculoskeletal Musculoskeletal: Denies back pain or extremity pain Integumentary Denies Abrasions or rash Neurologic Neurologic: Denies headache(s) Allergic/Immunologic Allergic/Immunologic ED: Denies lip swelling or urticaria EXAM Physical Exam Const Vital Signs: 07/05/22 12:24 Temperature 97.8 F Temperature Source Temporal Pulse Rate 86 Respiratory Rate 15 Blood Pressure 151/93 H Blood Pressure Mean 112 Pulse Ox 98 Oxygen Delivery Method Room Air Positive well nourished and well developed General Appearance ED: well developed HEENT Reports moist mucous membranes Eyes EOMs intact bilaterally Chest Wall inspection of chest normal and palpation of chest normal Resp normal respiratory effort and clear to auscultation bilaterally Cardio regular rate and regular rhythm GI non-tender Palpation: soft Neuro oriented x3 Psych mental status grossly normal Skin no rashes or lesions noted MDM MDM MDM Narrative Medical decision making narrative: Bowman catheter was changed. Urinalysis sent and does reveal sign of infection with 3+ bacteria and 10-25 white cells. Will be sent for culture. Previous urine cultures are reviewed. Patient will be treated with Keflex. Patient is to follow-up with his urologist. Lab Data Labs: Laboratory Results - last 24 hr 07/05/22 14:13 Urine Color Yellow Urine Clarity Clear Urine pH 7.0 Ur Specific [place] 1.015 Urine Protein 100 H Urine Glucose (UA) Normal Urine Ketones Negative Urine Occult Blood 50 H Urine Nitrite Negative Urine Bilirubin Negative Urine Urobilinogen Normal Ur Leukocyte Esterase 500 H Urine RBC 5-10 SEEN Urine WBC 10-25 SEEN Ur Squamous Epith Cells 0 SEEN Urine Bacteria 3+ Urine Mucus 0 SEEN Discharge Plan Triage Chief Complaint: Bowman C/O ED Provider: Maddie Vasquez Dx/Rx/DC Orders Clinical Impression: Bowman catheter problem, UTI (urinary tract infection) Instructions: ED Bowman Catheter, Care, ED Bladder Infection, Male (Adult) Prescriptions: New cephalexin 500 mg capsule 500 mg PO Q12 Qty: 14 0RF No Action Linzess 72 mcg capsule 72 mcg PO DAILY Label Comments: TAKE 1 CAP BY MOUTH ONCE DAILY ON EMPTY STOMACH SWALLOW WHOLE DO NOT CHEW/CRUSH baclofen 5 MG tablet 5 mg PO TID Qty: 0 0RF Rx Instructions: Hold for sedation/lethargy mineral oil Oil 30 ml PO DAILY PRN (Reason: Constipation) bisacodyl 10 mg suppository 10 mg DE DAILY Rx Instructions: OTC Primary Care Provider: Lyndon Sanders Referrals: Lyndon Sanders MD [Primary Care Provider] - Activity Restrictions/Additional Instructions: Follow-up with your urologist in 1 to 2 weeks. Disposition Disposition: Home, Self Care
[2022-07-05 14:16] LABS: Mucous, Urine 0 SEEN /hpf (<or=2+); Squamous Epithelial Cells - UA 0 SEEN /hpf (0-5)
[2022-07-05 14:19] LABS: Color, Urine Yellow (Yellow); Glucose, Dipstick Normal (Normal); Ketone-Dipstick Negative (Negative); Leukocyte Esterase-Dipstick 500 /ul (Negative); Nitrite-Dipstick Negative (Negative); Occult Blood-Urine 50 /ul (Negative); Protein-Dipstick 100 mg/dl (Negative); Specific Gravity, Urine 1.015 (1.002-1.030); Urine Bilirubin Dipstick Negative (Negative); Urine Clarity Clear (Clear); Urine Urobilinogen Normal (Normal)
[2022-07-05 14:23] LABS: White Blood Cells 10-25 SEEN /hpf (0-5)
[2022-07-05 14:24] LABS: Red Blood Cells-Urine 5-10 SEEN /hpf (0-5)
[2022-07-05 14:25] LABS: Bacteria 3+ /hpf (None Seen)
[2022-07-05] MEDS: Cephalexin 250 MG Capsule 500 MG PO (15:18)
[2022-07-05 15:24] VITALS: BP 156/90; PULSE 89; RESP 15; O2SAT 98
== END 2022-07-05 15:24 | disposition home or self-care (01) ==
PROVIDERS: Emergency Provider Emergency Medicine; PCP Family Medicine; Visit Provider Emergency Medicine
DX: T83.031A Leakage of indwelling urethral catheter, initial encounter (principal); N39.0 Urinary tract infection, site not specified; I10 Essential (primary) hypertension; X58.XXXA Exposure to other specified factors, initial encounter
CPT/HCPCS: 51702; 81001; 87077; 87086; 87088; 87186; 99284

== ENCOUNTER 2022-07-21 05:11 | Inpatient (IN) | payer MEDICARE, MEDICAID, SELFPAY ==
[2022-07-21] VITALS (10 sets, daily range): BP systolic 137–152; BP diastolic 78–99; PULSE 88–103; RESP 15–22; TEMP 36.4–37.7; O2SAT 95–100; BMI 22.3; BMI 20.4
--- NOTE | 2022-07-21 05:32 | EDS_ITS ---
HPI History of Present Illness Chief Complaint: General Illness Informant: patient and parent Narrative Narrative: Presents concerns for decreased output from Bowman catheter. Last emptying was 7 PM. Currently 400 cc in the bag report normally is 1400 output. Nausea vomiting x3 no hematemesis. Last bowel movement yesterday. Positive flatus. History of bowel obstructions. History of hydrocephalus with a TIRE MOLD TESTER shunt. History UTIs. Seen little over 2 weeks ago Bowman catheter exchange and findings of UTI. Records note E. coli pansensitive. He was on Keflex. He denies any fevers. Denies current nausea. Prior similar symptoms: Yes PFSH PFSH Medical History Chronic indwelling Bowman catheter Gastroparesis Hydrocephalus Hypertension Ileus Kidney stones Seizures Home Medications linaclotide 72 mcg capsule (Linzess) 72 mcg PO DAILY 07/31/21 [History Last Taken 01/18/22] baclofen 5 mg tablet 5 mg PO TID #0 tabs 01/24/22 [Rx Last Taken 01/19/22 06:00] bisacodyl 10 mg rectal suppository 10 mg [place] DAILY 04/13/22 [History Last Taken Unknown] mineral oil 30 ml PO DAILY PRN Constipation 04/13/22 [History Last Taken Unknown] cephalexin 500 mg capsule 500 mg PO Q12 #14 caps 07/05/22 [Rx Last Taken Unknown] Allergy/AdvReac Type Severity Reaction Status Date / Time Iodinated Contrast Media Allergy Anaphylaxis Verified 07/21/22 05:16 [Iodinated Contrast Media - IV Dye] nitrofurantoin AdvReac Upset Verified 07/21/22 05:16 Stomach Family History Father Heart disease Kidney stones Prostate disease Brother Kidney stones Other Cancer Peptic ulcer disease Surgical History S/P release of urethral stricture S/P TIRE MOLD TESTER shunt Social History household members: family Smoking Status: Never smoker alcohol intake: never substance use type: does not use ROS ROS ED Constitutional Constitutional ED: Denies chills, fever(s) or sweats Eyes Eyes: Denies change in vision ENT ENT ED: Denies dysphagia or sore throat Cardiovascular Cardiovascular: Denies chest pain, leg edema, palpitations or racing heartbeat Respiratory/Chest Respiratory/Chest: Denies cough, dyspnea or dyspnea on exertion Gastrointestinal Gastrointestinal: Reports nausea and vomiting; Denies abdominal pain or diarrhea Genitourinary Genitourinary ED: Reports other Details: Decreased Bowman catheter output. ; Denies dysuria, hematuria or urinary frequency Musculoskeletal Musculoskeletal: Denies back pain, extremity pain or neck pain Integumentary Denies rash or wounds Neurologic Neurologic: Denies headache(s), paresthesias or weakness EXAM Physical Exam Const Vital Signs: 07/21/22 05:12 07/21/22 05:15 07/21/22 05:18 Temperature 97.9 F 97.9 F Temperature Source Temporal Temporal Pulse Rate 103 H 103 H Respiratory Rate 20 H 20 H Respiratory Effort Normal Respiratory Pattern Normal Blood Pressure 150/89 H 150/89 H Blood Pressure Mean 109 109 Pulse Ox 95 98 Oxygen Delivery Method Room Air Room Air 07/21/22 06:26 07/21/22 08:03 Temperature 98.2 F 97.8 F Temperature Source Temporal Temporal Pulse Rate 88 100 Respiratory Rate 17 16 Respiratory Effort Respiratory Pattern Blood Pressure 142/78 H 137/95 H Blood Pressure Mean 99 109 Pulse Ox 98 96 Oxygen Delivery Method Room Air Room Air Positive well nourished and well developed General Appearance ED: well developed and NAD HEENT Reports moist mucous membranes normocephalic and atraumatic Eyes PERRL, EOMs intact bilaterally and conjunctivae normal General Eye ED: Yes normal appearance of both eyes Neck no lymphadenopathy and supple General: Negative for tenderness Chest Wall Chest: Negative for tenderness Resp normal respiratory effort and normal air movement Effort and Inspection: symmetric chest movement; Negative for respiratory distress Cardio regular rate, regular rhythm and no murmurs Peripheral Pulses: pulses 2+ throughout GI normal to inspection, nondistended, normoactive bowel sounds and non-tender Auscultation: hypoactive bowel sounds Palpation: Negative for guarding or rebound tenderness present Narrative: Bowman catheter dark yellow urine. 400 cc currently in urine bag. Back/Spine no CVA tenderness and no thoracic nor lumbar tenderness Extremity normal to inspection General Extremety ED: Negative for edema or tenderness General Extremity: Negative for edema Neuro oriented x3 and no sensory deficits noted Sensorium / Orientation: awake and alert Skin no rashes or lesions noted and no wounds MDM MDM MDM Narrative Medical decision making narrative: Patient was soft abdomen hypoactive bowel sounds. Bladder scan noted 35 cc residual. Labs White count 14. Liver enzymes renal function normal sodium 130. Hemoglobin 15.6. Urine positive for infection, culture sent he is started on Rocephin. CT scan per radiology results concerns for high-grade bowel obstruction with mid transition zone with moderate distended gastrum. Also notes moderate left inguinal hernia containing bladder with surrounding inflammatory changes could not rule out incarceration. He is nontender in this area on reevaluation. Lactic acid added returned at 1.3. NG tube was placed. Reviewing records he had obstruction concerns back in July and in January. He was managed with NG tube with conservative treatment with improvement. He has no abdominal surgeries. I spoke with covering surgeon Dr. Grant, discussed patient's history and findings. With abdominal surgeries and conservative treatment with findings of infection, he states more likely ileus. He would like this admitted to medicine with his close following. I spoke with hospitalist Dr. De Luna for admission. 0830: Review of KUB was reviewed by myself notes kinking of the tube in the stomach which curls back up to the esophagus, however orifice was still in the gastrum. Due to the kink, I did readjust the NG tube. Reorder of KUB is pending. 0845: Evaluation bedside of 1 view KUB by myself notes NG tube curled now in the mid esophagus. Tube was pulled back to posterior pharyngeal, loop, readjusted in advance, positive bowel sounds noted. Attached to suction more significant output. KUB reordered for evaluation. 0900: KUB reviewed bedside, now in appropriate position in the stomach. Lab Data Attestation: I reviewed the patient's lab results. Labs: Laboratory Results - last 24 hr 07/21/22 07/21/22 07/21/22 05:45 05:45 06:43 WBC 14.4 H RBC 5.39 Hgb 15.6 Hct 46.1 MCV 85.5 MCH 28.9 MCHC 33.8 RDW Std Deviation 39.8 RDW Coeff of [place] 12.8 Plt Count 450 MPV 9.5 Immature Gran % (Auto) 0.300 Neut % (Auto) 87.1 H Lymph % (Auto) 6.4 L [place] % (Auto) 5.9 Eos % (Auto) 0.2 Baso % (Auto) 0.1 Absolute Neuts (auto) 12.5 H Absolute Lymphs (auto) 0.92 Nucleated RBC % 0 Sodium 130 L Potassium 4.1 Chloride 95 L Carbon Dioxide 25.0 Anion Gap 10 BUN 20 H Creatinine 0.85 Estim Creat Clear Calc 79.96 Est GFR (MDRD) Af Amer 121 Est GFR (MDRD) Non-Af 100 BUN/Creatinine Ratio 23.6 H Glucose 138 H Lactic Acid Calcium 9.0 Total Bilirubin 0.60 AST 13 L ALT 20 Alkaline Phosphatase 70 Total Protein 7.7 Albumin 3.3 Globulin 4.4 H Albumin/Globulin Ratio 0.8 L Lipase 106 Urine Color Yellow Urine Clarity Turbid Urine pH 8.0 Ur Specific [place] 1.015 Urine Protein 500 H Urine Glucose (UA) Normal Urine Ketones 5 H Urine Occult Blood 250 H Urine Nitrite Negative Urine Bilirubin Negative Urine Urobilinogen Normal Ur Leukocyte Esterase 500 H Urine RBC > 100 SEEN Urine WBC 5-10 SEEN Ur Squamous Epith Cells 0-5 SEEN Triple Phos Crystals 1+ Urine Bacteria 4+ Urine Mucus 0 SEEN 07/21/22 07:15 WBC RBC Hgb Hct MCV MCH MCHC RDW Std Deviation RDW Coeff of Frieda Plt Count MPV Immature Gran % (Auto) Neut % (Auto) Lymph % (Auto) [place] % (Auto) Eos % (Auto) Baso % (Auto) Absolute Neuts (auto) Absolute Lymphs (auto) Nucleated RBC % Sodium Potassium Chloride Carbon Dioxide Anion Gap BUN Creatinine Estim Creat Clear Calc Est GFR (MDRD) Af Amer Est GFR (MDRD) Non-Af BUN/Creatinine Ratio Glucose Lactic Acid 1.3 Calcium Total Bilirubin AST ALT Alkaline Phosphatase Total Protein Albumin Globulin Albumin/Globulin Ratio Lipase Urine Color Urine Clarity Urine pH Ur Specific [place] Urine Protein Urine Glucose (UA) Urine Ketones Urine Occult Blood Urine Nitrite Urine Bilirubin Urine Urobilinogen Ur Leukocyte Esterase Urine RBC Urine WBC Ur Squamous Epith Cells Triple Phos Crystals Urine Bacteria Urine Mucus Radiography Diagnostic Testing: Clinical Impression(s) from Imaging Studies Abdomen/Pelvis CT 07/21/22 06:17 IMPRESSION: 1. High-grade small bowel obstruction with transition in the mid abdomen. 2. Moderately distended gastric fundus with distal gastric decompression, most likely related to transient peristalsis, however correlate for outlet obstruction. 3. Mild urinary bladder wall thickening with gas in urinary bladder, may be due to recent instrumentation or cystitis. 4. Moderate left inguinal hernia containing a portion of the urinary bladder with surrounding inflammatory changes, cannot exclude incarceration. 5. Nonobstructive left nephrolithiasis again seen. No hydroureteronephrosis. 6. Multiple bladder stones, similar compared to the prior. Electronically Signed: Ayan Thakkar MD at 6:58 EDT , Discharge Plan Dx/Rx/DC Orders Clinical Impression: Urinary tract infection, Gastroparesis, History of urinary retention, Acute hyponatremia, Ileus due to infection Disposition Disposition: Acute Care Hospital [facility]
[2022-07-21 05:49] LABS: Absolute Lymphocyte Count 0.92 X10^3/uL (0.83-4.51); Absolute Neutrophil Count 12.5 X10^3/uL (2.0-7.7); Basophil# 0.02 X10^3/uL; Basophil% 0.1 % (0-1); Eosinophil# 0.03 X10^3/uL; Eosinophils% 0.2 % (0-5); Hematocrit 46.1 % (40-54); Hemoglobin 15.6 g/dL (13.0-16.5); Lymphocyte # 0.92 X10^3/ul (0.83-4.51); Lymphocyte % 6.4 % (19-41); Mean Corp Hgb Conc 33.8 g/dL (32-36); Mean Corpuscular Hgb 28.9 pg (27.0-32.0); Mean Corpuscular Volume 85.5 fL (80-94); Mean Platelet Vol. 9.5 fl (6.2-12.0); Monocyte# 0.85 X10^3/uL; Monocyte% 5.9 % (0-10); NRBC Flagged by Analyzer 0 % (0-5); Neutrophil # 12.53 X10^3/uL (2.7-7.7); Neutrophil % 87.1 % (47-70); Platelet Count 450 K/mm3 (150-450); RBC Distribution Width CV 12.8 % (11.6-14.6); RBC Distribution Width SD 39.8 fl (35.1-43.9); Red Blood Count 5.39 M/mm3 (4.6-6.2); White Blood Count 14.4 K/mm3 (4.4-11.0)
[2022-07-21 06:09] LABS: ALB/GLOB Ratio 0.8 RATIO (0.9-2.4); AST(SGOT) 13 U/L (15-37); Alanine Aminotransfer ALT/SGPT 20 U/L (16-61); Albumin, Serum 3.3 g/dL (3.2-5.0); Alkaline Phosphatase 70 U/L (45-117); Anion Gap 10 (5-15); BUN 20 mg/dL (7-18); BUN/Creat Ratio 23.6 RATIO (10-20); Chloride 95 mmol/L (98-107); Creatinine, Serum 0.85 mg/dL (0.70-1.30); EST Glomerular Filtration Rate 100 mL/min (>60); Est Glom Filt Rate - Afr Amer 121 mL/min (>60); Estimated Creatinine Clearance 79.96 ml/min; Globulin 4.4 g/dL (2.2-4.2); Glucose 138 mg/dL (74-106); Lipase 106 U/L (73-393); Potassium 4.1 mmol/L (3.5-5.1); Protein, Total 7.7 g/dL (6.4-8.2); Sodium Level 130 mmol/L (136-145)
--- NOTE | 2022-07-21 06:17 | CT_ITS ---
STUDY: CT ABDOMEN AND PELVIS WITHOUT CONTRAST REASON FOR EXAM: Male, 56 years old. vomiting RADIATION DOSAGE (If Supplied By Facility): CTDIvol = ( 6.04 ) mGy, DLP = ( 333.75 ) mGycm TECHNIQUE: Transaxial images were obtained from the dome of the diaphragm to the symphysis pubis without oral contrast, and without intravenous contrast. Sagittal and coronal images were reconstructed. Individualized dose optimization techniques were used for this CT. COMPARISON: CT abdomen and pelvis 01/19/2022 FINDINGS: LOWER CHEST: Normal. LIVER: Normal. GALLBLADDER/BILE DUCTS: Normal. PANCREAS: Normal. SPLEEN: Normal. ADRENAL GLANDS: Normal. KIDNEYS/URETERS/BLADDER: Nonobstructive left nephrolithiasis and left renal cystic changes, similar compared to the prior. No hydroureteronephrosis. Bowman catheter in place within the urinary bladder. There is small gas in the urinary bladder and layering bladder stones extending into the small to moderate right bladder diverticulum. Small right and moderate left inguinal hernia is again seen with the left inguinal hernia containing a portion of the urinary bladder and at least 2 bladder calculi. Fat stranding involving the herniated fat in the left inguinal hernia. RETROPERITONEUM/AORTA: Normal. BOWEL/MESENTERY: Multiple dilated small bowel loops with transition in the mid abdomen into decompressed bowel loops with associated mesenteric infiltration. Moderately distended gastric fundus with distal gastric decompression. APPENDIX: Nonvisualized. PERITONEUM: Trace free fluid. REPRODUCTIVE ORGANS: Normal. BONES/SOFT TISSUES:. Severe degenerative changes in the left hip with superior subluxation, similar compared to the prior.. OTHER: Right abdominal JET DYEING MACHINE TENDER shunt terminates in similar position in the lower abdomen.. CT/Abdomen/Pelvis without Cont IMPRESSION: 1. High-grade small bowel obstruction with transition in the mid abdomen. 2. Moderately distended gastric fundus with distal gastric decompression, most likely related to transient peristalsis, however correlate for outlet obstruction. 3. Mild urinary bladder wall thickening with gas in urinary bladder, may be due to recent instrumentation or cystitis. 4. Moderate left inguinal hernia containing a portion of the urinary bladder with surrounding inflammatory changes, cannot exclude incarceration. 5. Nonobstructive left nephrolithiasis again seen. No hydroureteronephrosis. 6. Multiple bladder stones, similar compared to the prior. Electronically Signed: Ayan Thakkar MD at 6:58 EDT ,
[2022-07-21 06:49] LABS: Mucous, Urine 0 SEEN /hpf (<or=2+)
[2022-07-21 06:51] LABS: Color, Urine Yellow (Yellow); Glucose, Dipstick Normal (Normal); Ketone-Dipstick 5 mg/dl (Negative); Leukocyte Esterase-Dipstick 500 /ul (Negative); Nitrite-Dipstick Negative (Negative); Occult Blood-Urine 250 /ul (Negative); Protein-Dipstick 500 mg/dl (Negative); Specific Gravity, Urine 1.015 (1.002-1.030); Urine Bilirubin Dipstick Negative (Negative); Urine Clarity Turbid (Clear); Urine Urobilinogen Normal (Normal)
[2022-07-21 06:56] LABS: Bacteria 4+ /hpf (None Seen); Red Blood Cells-Urine > 100 SEEN /hpf (0-5); Squamous Epithelial Cells - UA 0-5 SEEN /hpf (0-5); Triple Phosphate Crystals Ur 1+ /hpf (<or=1+); White Blood Cells 5-10 SEEN /hpf (0-5)
[2022-07-21] MEDS: Ceftriaxone 1 GM/50 ML BAG IV (07:26)
--- NOTE | 2022-07-21 07:40 | ED.RN ---
multiple attempts to insert ng by different RN's all unsuccessful provider aware.
[2022-07-21 07:54] LABS: Lactic Acid 1.3 mmol/L (0.4-1.9)
--- NOTE | 2022-07-21 08:17 | PCM.HP.STD ---
HPI - General General Date of Admission: 07/21/22 Date of Service: 07/21/22 Chief Complaint: Abdominal discomfort HPI Narrative JIAN ALTAMIRANO, is a 56 M with past medical history significant for hydrocephalus status post PRODUCER ASSISTANT shunt, history of recurrent small bowel obstruction gastroparesis who presents with abdominal discomfort with nausea and vomiting. Patient symptoms started a day prior to coming in. Patient had also experienced subjective fever and chills at home. In view of worsening symptoms patient was brought to the emergency department. CT of the abdomen obtained demonstrated high-grade small bowel obstruction with transition in the mid abdomen. He was also found to have moderately distended gastric fundus with gastric decompression. Urinalysis also obtained demonstrated features consistent with UTI. An NG tube was placed in the ED and subsequently admitted to regular nursing floor for further management [facility] Medical History Chronic indwelling Bowman catheter Gastroparesis Hydrocephalus Hypertension Ileus Kidney stones Seizures Home Medications linaclotide 72 mcg capsule (Linzess) 145 mcg PO DAILY constipation 07/31/21 [History Last Taken 07/20/22] bisacodyl 10 mg rectal suppository 10 mg [place] DAILY constipation 04/13/22 [History Last Taken 07/20/22] mineral oil 30 ml PO DAILY PRN Constipation 04/13/22 [History Last Taken 07/18/22] baclofen 5 mg tablet 5 mg PO TID spasms 07/21/22 [History Last Taken 07/20/22] Allergy/AdvReac Type Severity Reaction Status Date / Time Iodinated Contrast Media Allergy Anaphylaxis Verified 07/21/22 05:16 [Iodinated Contrast Media - IV Dye] nitrofurantoin AdvReac Upset Verified 07/21/22 05:16 Stomach Family History Father Heart disease Kidney stones Prostate disease Brother Kidney stones Other Cancer Peptic ulcer disease Surgical History S/P release of urethral stricture S/P PRODUCER ASSISTANT shunt Social History household members: family Smoking Status: Never smoker alcohol intake: never substance use type: does not use ROS ROS Narrative GENERAL: fever, chills, HEENT: denies headache, sinus congestion, RESPIRATORY: denies cough, sputum production, CARDIAC: denies chest pain, palpitations, orthopnea, GASTROINTESTINAL: abdominal pain, nausea, vomiting, GENITOURINARY: denies dysuria, urgency, frequency, EXTREMITY: denies swelling MUSCULOSKELETAL: denies current joint pain or tenderness NEUROLOGIC: denies focal numbness, weakness, tingling HEMATOLOGIC: denies easy bruising and/or hemorrhage INTEGUMENT: denies rashes PSYCHIATRIC: denies suicidal or homicidal ideation Vital Signs Vital Signs Vital Signs: 07/21/22 05:12 07/21/22 05:15 07/21/22 05:18 Temperature 97.9 F 97.9 F Temperature Source Temporal Temporal Pulse Rate 103 H 103 H Respiratory Rate 20 H 20 H Respiratory Effort Normal Respiratory Pattern Normal Blood Pressure 150/89 H 150/89 H Blood Pressure Mean 109 109 Pulse Ox 95 98 Oxygen Delivery Method Room Air Room Air 07/21/22 06:26 07/21/22 08:03 Temperature 98.2 F 97.8 F Temperature Source Temporal Temporal Pulse Rate 88 100 Respiratory Rate 17 16 Respiratory Effort Respiratory Pattern Blood Pressure 142/78 H 137/95 H Blood Pressure Mean 99 109 Pulse Ox 98 96 Oxygen Delivery Method Room Air Room Air Weight Weight: 57.2 kg Body Mass Index (BMI) 22.3 Physical Exam Narrative GENERAL: Patient appears ill looking HEENT: Atraumatic; NG tube in place EYES; Anicteric, Normal Conjunctiva NECK; supple, normal thyroid, RESPIRATORY: Diminished to auscultation CARDIOVASCULAR: Regular S1 S2, GI: soft, normoactive bowel sounds, : No Renal angle tenderness; EXTREMITIES: No edema, no clubbing, MUSCULOSKELETAL: no muscle wasting NEURO: Awake; no lateralizing signs. SKIN: No Rash PSYCH; Flat affect Results Lab / Micro Data Result Diagrams: 07/21/22 05:45 07/21/22 05:45 Labs: Laboratory Results - last 24 hr 07/21/22 05:45: WBC 14.4 H, RBC 5.39, Hgb 15.6, Hct 46.1, MCV 85.5, MCH 28.9, MCHC 33.8, RDW Std Deviation 39.8, RDW Coeff of Frieda 12.8, Plt Count 450, MPV 9.5, Immature Gran % (Auto) 0.300, Neut % (Auto) 87.1 H, Lymph % (Auto) 6.4 L, [place] % (Auto) 5.9, Eos % (Auto) 0.2, Baso % (Auto) 0.1, Absolute Neuts (auto) 12.5 H, Absolute Lymphs (auto) 0.92, Nucleated RBC % 0 07/21/22 05:45: Sodium 130 L, Potassium 4.1, Chloride 95 L, Carbon Dioxide 25.0, Anion Gap 10, BUN 20 H, Creatinine 0.85, Estim Creat Clear Calc 79.96, Est GFR (MDRD) Af Amer 121, Est GFR (MDRD) Non-Af 100, BUN/Creatinine Ratio 23.6 H, Glucose 138 H, Calcium 9.0, Total Bilirubin 0.60, AST 13 L, ALT 20, Alkaline Phosphatase 70, Total Protein 7.7, Albumin 3.3, Globulin 4.4 H, Albumin/Globulin Ratio 0.8 L, Lipase 106 07/21/22 06:43: Urine Color Yellow, Urine Clarity Turbid, Urine pH 8.0, Ur Specific [place] 1.015, Urine Protein 500 H, Urine Glucose (UA) Normal, Urine Ketones 5 H, Urine Occult Blood 250 H, Urine Nitrite Negative, Urine Bilirubin Negative, Urine Urobilinogen Normal, Ur Leukocyte Esterase 500 H, Urine RBC > 100 SEEN, Urine WBC 5-10 SEEN, Ur Squamous Epith Cells 0-5 SEEN, Triple Phos Crystals 1+, Urine Bacteria 4+, Urine Mucus 0 SEEN 07/21/22 07:15: Lactic Acid 1.3 Radiology Impression Abdomen/Pelvis CT 07/21/22 06:17 IMPRESSION: 1. High-grade small bowel obstruction with transition in the mid abdomen. 2. Moderately distended gastric fundus with distal gastric decompression, most likely related to transient peristalsis, however correlate for outlet obstruction. 3. Mild urinary bladder wall thickening with gas in urinary bladder, may be due to recent instrumentation or cystitis. 4. Moderate left inguinal hernia containing a portion of the urinary bladder with surrounding inflammatory changes, cannot exclude incarceration. 5. Nonobstructive left nephrolithiasis again seen. No hydroureteronephrosis. 6. Multiple bladder stones, similar compared to the prior. Electronically Signed: Ayan Thakkar MD at 6:58 EDT , Assessment & Plan Assessment/Plan (1) Acute hyponatremia: (2) History of urinary retention: (3) Ileus due to infection: PLAN: Plan Patient is a 56-year-old gentleman presenting with abdominal pain with associated nausea vomiting and fever 1. Small bowel obstruction ? Patient has been admitted to regular nursing floor being managed conservatively with bowel rest NG tube to suction IV fluids pain meds as well as antinausea medications. Consult was placed to general surgery. Patient progressed being monitored clinically as well as with serial imaging studies. 2. Acute cystitis ? Patient started on Rocephin cultures sent, plan is to continue either with the Rocephin or adjust antibiotic therapy pending culture results 3. Hydrocephalus ? Status post PRODUCER ASSISTANT shunt 4. Gastroparesis ? Per history 5. History of multiple bladder calculi ? Stable 6. DVT prophylaxis ? CT Jaya Charges/Coding Visit Charges Inpatient E&M: 47203 Init Hosp L2
--- NOTE | 2022-07-21 08:20 | RAD_ITS ---
STUDY: X-RAY - ABDOMEN/PELVIS REASON FOR EXAM: Male, 56 years old. ng tube placement -- KUB with both diaphragms for NG/OG Verification TECHNIQUE: Single AP view of the abdomen / pelvis. COMPARISON: None. FINDINGS: The tip of the nasogastric tube is coiled within the distal portion of the esophagus. A ventriculoperitoneal shunt tube is seen. RAD/Abdomen Single View (Portable) IMPRESSION: The tip of the nasogastric tube is coiled within the distal portion of the esophagus. Electronically Signed: Kingsley Butler MD at 8:47 EDT ,
--- NOTE | 2022-07-21 08:24 | NURSING ---
MED SURG KITTOE UTI, ILEUS, VOMITNIG
--- NOTE | 2022-07-21 08:25 | NURSING ---
MED SURG KITTOE UTI, ILEUS, VOMITING
--- NOTE | 2022-07-21 08:35 | RAD_ITS ---
STUDY: X-RAY - ABDOMEN/PELVIS REASON FOR EXAM: Male, 56 years old. NG tube TECHNIQUE: AP supine and decubitus views of the abdomen and pelvis. COMPARISON: Comparison is made with prior study done earlier today. FINDINGS: The distal tip of the nasogastric tube is coiled within the midportion of the esophagus. RAD/Abdomen Single View (Portable) IMPRESSION: The distal tip of the nasogastric tube is coiled within the midportion of the esophagus. Electronically Signed: Kingsley Butler MD at 9:38 EDT ,
--- NOTE | 2022-07-21 08:56 | RAD_ITS ---
STUDY: X-RAY - ABDOMEN/PELVIS REASON FOR EXAM: Male, 56 years old. NG adjustment TECHNIQUE: Single AP view of the abdomen / pelvis. COMPARISON: Comparison is made with prior study done earlier today. FINDINGS: The tip of the nasogastric tube is in the body of the stomach. RAD/Abdomen Single View (Portable) IMPRESSION: The tip of the nasogastric tube is in the body of the stomach. Electronically Signed: Kingsley Butler MD at 9:39 EDT ,
[2022-07-21] MEDS: Enoxaparin 40 MG/0.4 ML Syringe SC (10:16)
--- NOTE | 2022-07-21 11:01 | CON.PCM.SX_ITS ---
Assessment & Plan Assessment/Plan (1) Ileus due to infection: PLAN: I have been consulted in conjunction with Dr. Grant. He will ind ependently evaluate this patient. I have discussed this patient with Dr. Grant. Plan for conservative measures with NG tube, bowel rest, IV fluids. Patient's ileus is likely due to his urinary tract infection. Recommend IV antibiotics to treat UTI. Obtain KUB tomorrow morning. 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 We do not have inpatient neurology in house to assist with this patient's potential post-surgical complications if any were to arise. If yuki vann's symptoms resolve and he is able to tolerate his diet, he may not have to be transferred during this visit. Patient has had the opportunity to ask and have questions answered. No surgical intervention planned at this time. Patient verbally understands and agrees with the plan. We will continue to closely monitor this patient. ? Thank you for allowing us to participate in this patient's care. HPI Consult Data Date of Consult: 07/21/22 HPI Narrative Reason for Consultation: Possible small bowel obstruction HPI Narrative: JIAN ALTAMIRANO, is a 56 M who presents with 1 day history of nausea, vomiting and decreased urine output. Patient stated his last bowel movement was yesterday morning. He notes passing flatus. Patient's sister is present along with patient's [id number]. 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 Patient follows with Dr. Chavarria at [facility], neurology. He denies having any seizures or seizure activity. Patient is able to ambulate with canes with 2 person assist, otherwise he spends most his time in a wheelchair or in bed. He states he has a dull ache in his abdomen. No true pain or discomfort. He takes Linzess and mineral oil daily for his bowels. His sister noted he also has to use suppositories and tap water enemas daily to assist with his bowel movements. He follows with a GI specialist at [facility]. He also sees a urologist there as well. Patient sees Dr. Virgen for catheter exchange monthly. Patient had a Hannon catheter placed in 2019 due to urinary retention. Patient has had a catheter ever since. Patient's sister noted that patient's urine output had decreased overnight. She noted typoically the patient will have 1400 cc overnight of urine. Last night patient was only noted to have a 400 cc urine output. Patient also notes he has had multiple bowel obstructions within the last year or two. Patient's most recent hospitalization was at [facility] in April. He was hospitalized for 1 week. His obstruction resolved with conservative measures. He denies any previous abdominal surgeries for bowel obstructions. Patient also notes he has UTI's often with the hannon catheter placed. Patient is cared for by his 2 sisters who alternate caregiver responsibilities. Patient was recently evaluated in the ED at [facility] on 07/05/22. Patient was treated for a UTI at that time with Keflex x 7 days. Culture demonstrated E. Coli. Patient also recently had an upper scope with Dr. Haynes on 07/15/22. Examination was unremarkable. It was recommended the patient use Protonix indefinitely. Patient has a history of medication induced gastroparesis. Patient is on Baclofen for tonic and spastic movements. Patient also has a known left inguinal hernia which includes bladder involvement. Per patient's sister, no plan has been made to repair the hernia at this time. The hernia does not seem to bother him. Patient had a CT scan of the abdomen/pelvis completed in the ED which demonstrated: IMPRESSION: ? 1.? High-grade small bowel obstruction with transition in the mid abdomen. 2.? Moderately distended gastric fundus with distal gastric decompression, most likely related to transient peristalsis, however correlate for outlet obstruction. 3.? Mild urinary bladder wall thickening with gas in urinary bladder, may be due to recent instrumentation or cystitis. 4.? Moderate left inguinal hernia containing a portion of the urinary bladder with surrounding inflammatory changes, cannot exclude incarceration. 5.? Nonobstructive left nephrolithiasis again seen.? No hydroureteronephrosis. 6.? Multiple bladder stones, similar compared to the prior. NG tube was placed in the ED by Dr. Albarran. Per patient's sister the canister in the ED was [address]. I am unfortunately unable to find the exact output a mount. WBC is 14.4. Patient's urine demonstrates a UTI. [facility] Medical History Chronic indwelling Hannon catheter Gastroparesis Hydrocephalus Hypertension Ileus Kidney stones Seizures Home Medications linaclotide 72 mcg capsule (Linzess) 145 mcg PO DAILY constipation 07/31/21 [History Last Taken 07/20/22] bisacodyl 10 mg rectal suppository 10 mg ME DAILY constipation 04/13/22 [History Last Taken 07/20/22] mineral oil 30 ml PO DAILY PRN Constipation 04/13/22 [History Last Taken 07/18/22] baclofen 5 mg tablet 5 mg PO TID spasms 07/21/22 [History Last Taken 07/20/22] Allergy/AdvReac Type Severity Reaction Status Date / Time Iodinated Contrast Media Allergy Anaphylaxis Verified 07/21/22 05:16 [Iodinated Contrast Media - IV Dye] nitrofurantoin AdvReac Upset Verified 07/21/22 05:16 Stomach Family History Father Heart disease Kidney stones Prostate disease Brother Kidney stones Other Cancer Peptic ulcer disease Surgical History S/P release of urethral stricture S/P 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 Social History household members: family Smoking Status: Never smoker alcohol intake: never substance use type: does not use ROS Constitutional Constitutional: Reports systems reviewed and no addt'l complaints, except as documented Eyes Eyes: Reports systems reviewed and no addt'l complaints, except as documented ENT HEENT: Reports systems reviewed and no addt'l complaints, except as documented Cardiovascular Cardiovascular: Reports systems reviewed and no addt'l complaints, except as documented Respiratory/Chest Respiratory/Chest: Reports systems reviewed and no addt'l complaints, except as documented Gastrointestinal Gastrointestinal: Reports systems reviewed and no addt'l complaints, except as documented Genitourinary Genitourinary: Reports systems reviewed and no addt'l complaints, except as documented Musculoskeletal Musculoskeletal: Reports systems reviewed and no addt'l complaints, except as documented Integumentary Integumentary: Reports systems reviewed and no addt'l complaints, except as documented Neurologic Neurologic: Reports systems reviewed and no addt'l complaints, except as documented Psychiatric Psychiatric: Reports systems reviewed and no addt'l complaints, except as documented Endocrine Endocrinology: Reports systems reviewed and no addt'l complaints, except as documented Hematologic/Lymphatic Hematologic/Lymphatic: Reports systems reviewed and no addt'l complaints, except as documented Allergic/Immunologic Allergic/Immunologic: Reports systems reviewed and no addt'l complaints, except as documented Physical Exam Const alert, oriented x3 and no apparent distress HEENT head/scalp atraumatic Eyes General Eye: proptosis Neck General: torticollis Lymph Lymphatic: no lymphadenopathy noted Chest inspection of chest normal Resp normal respiratory effort, normal air movement and clear to auscultation bilaterally Cardio regular rate and regular rhythm GI soft to palpation, non-tender and non-distended Auscultation: hypoactive bowel sounds no CVA tenderness Bladder / Kidney Exam: catheter in place other (turbid urine) Extremity Extremity Narrative: bilateral atrophic lower extremities. Bilateral lower extremities contracted. Neuro oriented x3 Psych mental status grossly normal, thought process normal, cooperative and speech normal Lab / Micro Data Result Diagrams: 07/21/22 05:45 07/21/22 05:45 Labs: Laboratory Results - last 24 hr 07/21/22 05:45: WBC 14.4 H, RBC 5.39, Hgb 15.6, Hct 46.1, MCV 85.5, MCH 28.9, MCHC 33.8, RDW Std Deviation 39.8, RDW Coeff of Frieda 12.8, Plt Count 450, MPV 9.5, Immature Gran % (Auto) 0.300, Neut % (Auto) 87.1 H, Lymph % (Auto) 6.4 L, [place] % (Auto) 5.9, Eos % (Auto) 0.2, Baso % (Auto) 0.1, Absolute Neuts (auto) 12.5 H, Absolute Lymphs (auto) 0.92, Nucleated RBC % 0 07/21/22 05:45: Sodium 130 L, Potassium 4.1, Chloride 95 L, Carbon Dioxide 25.0, Anion Gap 10, BUN 20 H, Creatinine 0.85, Estim Creat Clear Calc 79.96, Est GFR (MDRD) Af Amer 121, Est GFR (MDRD) Non-Af 100, BUN/Creatinine Ratio 23.6 H, Glucose 138 H, Calcium 9.0, Total Bilirubin 0.60, AST 13 L, ALT 20, Alkaline Phosphatase 70, Total Protein 7.7, Albumin 3.3, Globulin 4.4 H, Albumin/Globulin Ratio 0.8 L, Lipase 106 07/21/22 06:43: Urine Color Yellow, Urine Clarity Turbid, Urine pH 8.0, Ur Specific [place] 1.015, Urine Protein 500 H, Urine Glucose (UA) Normal, Urine Ketones 5 H, Urine Occult Blood 250 H, Urine Nitrite Negative, Urine Bilirubin Negative, Urine Urobilinogen Normal, Ur Leukocyte Esterase 500 H, Urine RBC > 100 SEEN, Urine WBC 5-10 SEEN, Ur Squamous Epith Cells 0-5 SEEN, Triple Phos Crystals 1+, Urine Bacteria 4+, Urine Mucus 0 SEEN 07/21/22 07:15: Lactic Acid 1.3 Radiology Impression Abdomen/Pelvis CT 07/21/22 06:17 IMPRESSION: 1. High-grade small bowel obstruction with transition in the mid abdomen. 2. Moderately distended gastric fundus with distal gastric decompression, most likely related to transient peristalsis, however correlate for outlet obstruction. 3. Mild urinary bladder wall thickening with gas in urinary bladder, may be due to recent instrumentation or cystitis. 4. Moderate left inguinal hernia containing a portion of the urinary bladder with surrounding inflammatory changes, cannot exclude incarceration. 5. Nonobstructive left nephrolithiasis again seen. No hydroureteronephrosis. 6. Multiple bladder stones, similar compared to the prior. Electronically Signed: Ayan Thakkar MD at 6:58 EDT , KUB X-Ray 07/21/22 08:20 IMPRESSION: The tip of the nasogastric tube is coiled within the distal portion of the esophagus. Electronically Signed: Kingsley Butler MD at 8:47 EDT , KUB X-Ray 07/21/22 08:35 IMPRESSION: The distal tip of the nasogastric tube is coiled within the midportion of the esophagus. Electronically Signed: Kingsley Butler MD at 9:38 EDT , KUB X-Ray 07/21/22 08:56 IMPRESSION: The tip of the nasogastric tube is in the body of the stomach. Electronically Signed: Kingsley Butler MD at 9:39 EDT , Charges/Coding Visit Charges Office Visits / Consults: 46562 IP Consult L3
[2022-07-21] MEDS: Baclofen 10 MG Tablet 5 MG PO ×2 (14:32→22:14)
--- NOTE | 2022-07-21 15:09 | CHAPLAIN ---
Type of Pastoral Visit _x__ Initial Visit ___ Follow-up Visit ___ On-call Visit ___ General Patient Visit ___ Spiritual Assessment ___ Family Conference ___ Bereavement ___ Rapid Response ___ Code Blue ___ Other (describe below) Pastoral Care Referral From _x__ Patient ___ Family ___ Nurse ___ Physician ___ Computer Drafter ___ Inspector Exhaust Emissions ___ Other (describe below) Sacrament/Intervention _x__ Active listening ___ Anointing ___ Nondenominational ___ Bereavement ___ Communion ___ Liset exploration ___ ___ Life review _x__ Prayer ___ Reconciliation ___ Sacrament of Sick ___ Supportive presence ___ Wedding ___ Other (describe below) Pastoral Comments two siblings are with patient in his room; pt is remembered from a previous admission; pt states that 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
[2022-07-21] MEDS: Menthol/Lanolin/Calamine/Znox 113 GM Tube 1 APPLIC TOPICAL (22:14)
[2022-07-22 03:08] VITALS: BP 145/88; PULSE 95; RESP 16; TEMP 36.6; O2SAT 97
[2022-07-22] MEDS: Baclofen 10 MG Tablet 5 MG PO ×3 (05:53→21:44)
[2022-07-22 06:00] LABS: Absolute Lymphocyte Count 1.72 X10^3/uL (0.83-4.51); Absolute Neutrophil Count 4.2 X10^3/uL (2.0-7.7); Basophil# 0.02 X10^3/uL; Basophil% 0.3 % (0-1); Eosinophil# 0.05 X10^3/uL; Eosinophils% 0.7 % (0-5); Hematocrit 42.7 % (40-54); Hemoglobin 13.8 g/dL (13.0-16.5); Lymphocyte # 1.72 X10^3/ul (0.83-4.51); Lymphocyte % 24.1 % (19-41); Mean Corp Hgb Conc 32.3 g/dL (32-36); Mean Corpuscular Hgb 29.7 pg (27.0-32.0); Monocyte# 1.09 X10^3/uL; Monocyte% 15.3 % (0-10); NRBC Flagged by Analyzer 0 % (0-5); Neutrophil # 4.24 X10^3/uL (2.7-7.7); Neutrophil % 59.3 % (47-70); Platelet Count 393 K/mm3 (150-450); RBC Distribution Width CV 13.2 % (11.6-14.6); RBC Distribution Width SD 44.5 fl (35.1-43.9); Red Blood Count 4.64 M/mm3 (4.6-6.2); White Blood Count 7.1 K/mm3 (4.4-11.0)
[2022-07-22 06:24] LABS: Anion Gap 4 (5-15); BUN 10 mg/dL (7-18); BUN/Creat Ratio 15.8 RATIO (10-20); Calcium,Total 8.3 mg/dL (8.5-10.1); Chloride 106 mmol/L (98-107); Creatinine, Serum 0.63 mg/dL (0.70-1.30); EST Glomerular Filtration Rate 140 mL/min (>60); Est Glom Filt Rate - Afr Amer 170 mL/min (>60); Estimated Creatinine Clearance 102.34 ml/min; Glucose 136 mg/dL (74-106); Potassium 3.7 mmol/L (3.5-5.1); Sodium Level 138 mmol/L (136-145)
[2022-07-22 06:32] LABS: Phosphorus 2.1 mg/dL (2.5-4.9)
--- NOTE | 2022-07-22 07:21 | RAD_ITS ---
STUDY: X-RAY - ABDOMEN/PELVIS REASON FOR EXAM: Male, 56 years old. Ileus -- PORTABLE TECHNIQUE: AP supine and decubitus views of the abdomen and pelvis. COMPARISON: Comparison made with prior study dated 07/21/2022. FINDINGS: A nasogastric tube is seen with the tip in the body of the stomach. A right-sided ventriculoperitoneal shunt tube is seen with the distal tip in the left lower abdomen. Normal visualized lung bases. Gaseous distention of the small bowel loops. Gas and fecal material are seen in the colon. There is no demonstrated free abdominal air. Bladder calculi are seen. Normal soft tissue structures. There is cephalic migration of the left hip with a new acetabulum formed in the left iliac bone with a marked degree of the degenerative changes and osteoarthritis. There is deformity of the left femoral head and femoral neck. RAD/Abd Decub and/or Erect(Portabl IMPRESSION: Gaseous distention of the small bowel loops. Gas is seen throughout the colon. This may represent an incomplete small bowel obstruction. Further follow-up is recommended. Opacities are seen in the urinary bladder suggestive of bladder calculi. Electronically Signed: Kingsley Butler MD at 10:09 EDT ,
[2022-07-22 07:48] VITALS: BP 134/89; PULSE 80; RESP 14; TEMP 36.5; O2SAT 98
--- NOTE | 2022-07-22 07:53 | PCM.PN.HOSP ---
Subjective Subjective Patient is a 56-year-old gentleman admitted with abdominal pain with nausea and vomiting found to have small bowel obstruction admitted to regular nursing floor where patient is currently being managed conservatively ? Patient seen currently denies having had any bowel movement. Objective Data Objective Data Vital Signs: Vital Signs Temp Pulse Resp BP Pulse Ox O2 Del Method 97.8 F 95 16 145/88 H 97 Room Air 07/22/22 03:08 07/22/22 03:08 07/22/22 03:08 07/22/22 03:08 07/22/22 03:08 07/22/22 03:08 Oxygen Delivery Method Room Air Weight: 53.977 kg Body Mass Index (BMI) 20.4 Intake & Output: Intake and Output for Last 24 Hours 07/20/22 07/21/22 07/22/22 23:59 23:59 23:59 Intake Total 2597.5 / 2597.5 1002.5 / 1002.5 Output Total 1150 / 1150 1900 / 1900 Balance 1447.5 / 1447.5 -897.5 / -897.5 Lab / Micro Data Result Diagrams: 07/22/22 05:40 07/22/22 05:40 Labs: Laboratory Results - last 24 hr 07/21/22 07:15: Lactic Acid 1.3 07/22/22 05:40: WBC 7.1, RBC 4.64, Hgb 13.8, Hct 42.7, MCV 92.0 D, MCH 29.7, MCHC 32.3, RDW Std Deviation 44.5 H, RDW Coeff of Frieda 13.2, Plt Count 393, MPV 10.0, Immature Gran % (Auto) 0.300, Neut % (Auto) 59.3, Lymph % (Auto) 24.1, [place] % (Auto) 15.3 H, Eos % (Auto) 0.7, Baso % (Auto) 0.3, Absolute Neuts (auto) 4.2, Absolute Lymphs (auto) 1.72, Nucleated RBC % 0 07/22/22 05:40: Sodium 138, Potassium 3.7, Chloride 106, Carbon Dioxide 28.0, Anion Gap 4 L, BUN 10, Creatinine 0.63 L, Estim Creat Clear Calc 102.34, Est GFR (MDRD) Af Amer 170, Est GFR (MDRD) Non-Af 140, BUN/Creatinine Ratio 15.8, Glucose 136 H, Calcium 8.3 L, Magnesium 2.0 07/22/22 05:40: Phosphorus 2.1 L Radiography Diagnostic Testing: Radiology Impression KUB X-Ray 07/21/22 08:20 IMPRESSION: The tip of the nasogastric tube is coiled within the distal portion of the esophagus. Electronically Signed: Kingsley Butler MD at 8:47 EDT , KUB X-Ray 07/21/22 08:35 IMPRESSION: The distal tip of the nasogastric tube is coiled within the midportion of the esophagus. Electronically Signed: Kingsley Butler MD at 9:38 EDT Reading Location ID and State: [id number] / [employer] , Service support , KUB X-Ray 07/21/22 08:56 IMPRESSION: The tip of the nasogastric tube is in the body of the stomach. Electronically Signed: Kingsley Butler MD at 9:39 EDT , Physical Exam Narrative GENERAL: Patient appears ill looking HEENT: Atraumatic; NG tube in place EYES; Anicteric, Normal Conjunctiva NECK; supple, normal thyroid, RESPIRATORY: Diminished to auscultation CARDIOVASCULAR: Regular S1 S2, GI: Nondistended but bowel sounds not appreciated : No Renal angle tenderness; EXTREMITIES: No edema, no clubbing, MUSCULOSKELETAL: no muscle wasting NEURO: Awake; no lateralizing signs. SKIN: No Rash PSYCH; Flat affect Assessment & Plan Assessment/Plan (1) Acute hyponatremia: (2) History of urinary retention: (3) Ileus due to infection: PLAN: Plan Patient is a 56-year-old gentleman presenting with abdominal pain with associated nausea vomiting and fever 1. Small bowel obstruction ? Patient has been admitted to regular nursing floor being managed conservatively with bowel rest NG tube to suction IV fluids pain meds as well as antinausea medications. Consult was placed to general surgery. Patient progressed being monitored clinically as well as with serial imaging studies. ? 07/22/2022. No bowel movement or return of bowel function 2. Acute cystitis ? Patient started on Rocephin cultures sent, plan is to continue either with the Rocephin or adjust antibiotic therapy pending culture results 3. Hydrocephalus ? Status post DYE RANGE FEEDER shunt 4. Gastroparesis ? Per history 5. History of multiple bladder calculi ? Stable 6. DVT prophylaxis ? SC Lovenox Charges/Coding Visit Charges Inpatient E&M: 98964 Subs Hosp L2
[2022-07-22 08:11] VITALS: BP 142/81; PULSE 54; RESP 18; TEMP 37; O2SAT 95
[2022-07-22] MEDS: Bisacodyl 10 MG Suppository RC (10:09)
[2022-07-22] MEDS: Menthol/Lanolin/Calamine/Znox 113 GM Tube 1 APPLIC TOPICAL ×2 (10:09→21:44)
[2022-07-22] MEDS: Enoxaparin 40 MG/0.4 ML Syringe SC (10:09)
[2022-07-22] MEDS: Ceftriaxone 1 GM/50 ML BAG IV (10:10)
--- NOTE | 2022-07-22 10:20 | CASEMGMT ---
RN ANGELITO Face to Face with patient for initial transition planning/care coordination assessment. RN CM introduced self and role at [facility]. Patient lying in bed, alert and oriented, sister and her partner at bedside. Patient willing to participate in assessment and is able to answer all questions appropriately. Care providers, pharmacy, and demographics verified. Patient wishes to discharge home with HHC for additional therapy. CM to provide patient with HHC list. Patient states he has no further needs or concerns at this time. CM to follow for discharge planning needs that may arise. PCP: Tommy Specialists: Urologist, GI, and Neurologist at [facility] Preferred Pharmacy: [facility] Insurance: Olinda Garcia Prescription Benefit: yes Living Will/HPOA: none LNOK: sisters Living Arrangements: Patient lives in a 2 story home with bed and bath on first floor. Sisters rotate every 2 weeks staying with patient and providing care. Transportation: sisters DME/HHC: Patient has BSC, raised toielt, cane, grab bars, walker, and wheelchair at home. Patient has had HHC in the past but could not recall agency. No previous SNF. Disposition Plan: Patient to discharge home with HHC, family support, and follow-up plans in place. Anita FIELDS, RN, CM
--- NOTE | 2022-07-22 10:33 | PN.SURG_ITS ---
Subjective Subjective Patient describes minimal abdominal pain and he says he is passing flatus. Objective Data Objective Data Vital Signs: Vital Signs Temp Pulse Resp BP Pulse Ox O2 Del Method 98.6 F 54 L 18 142/81 H 95 Room Air 07/22/22 08:11 07/22/22 08:11 07/22/22 08:11 07/22/22 08:11 07/22/22 08:11 07/22/22 08:16 Oxygen Delivery Method Room Air Weight: 118 lb 15.983 oz Body Mass Index (BMI) 20.4 Intake & Output: Intake and Output for Last 24 Hours 07/20/22 07/21/22 07/22/22 23:59 23:59 23:59 Intake Total 2597.5 / 2597.5 1032.5 / 1032.5 Output Total 1150 / 1150 1900 / 1900 Balance 1447.5 / 1447.5 -867.5 / -867.5 Lab / Micro Data Result Diagrams: 07/22/22 05:40 07/22/22 05:40 Labs: Laboratory Results - last 24 hr 07/22/22 05:40: WBC 7.1, RBC 4.64, Hgb 13.8, Hct 42.7, MCV 92.0 D, MCH 29.7, MCHC 32.3, RDW Std Deviation 44.5 H, RDW Coeff of Frieda 13.2, Plt Count 393, MPV 10.0, Immature Gran % (Auto) 0.300, Neut % (Auto) 59.3, Lymph % (Auto) 24.1, [place] % (Auto) 15.3 H, Eos % (Auto) 0.7, Baso % (Auto) 0.3, Absolute Neuts (auto) 4.2, Absolute Lymphs (auto) 1.72, Nucleated RBC % 0 07/22/22 05:40: Sodium 138, Potassium 3.7, Chloride 106, Carbon Dioxide 28.0, Anion Gap 4 L, BUN 10, Creatinine 0.63 L, Estim Creat Clear Calc 102.34, Est GFR (MDRD) Af Amer 170, Est GFR (MDRD) Non-Af 140, BUN/Creatinine Ratio 15.8, Glucose 136 H, Calcium 8.3 L, Magnesium 2.0 07/22/22 05:40: Phosphorus 2.1 L Micro: Microbiology 07/21/22 06:43 Urine, Catheterized Urine Culture - Preliminary GNR 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 Gas is seen throughout the colon. This may represent an incomplete small bowel obstruction. Further follow-up is recommended. Opacities are seen in the urinary bladder suggestive of bladder calculi. Electronically Signed: Kingsley Butler MD at 10:09 EDT , Assessment & Plan Assessment/Plan (1) Ileus due to infection: PLAN: Patient has ileus due to UTI. He is being treated and his white count is returned to normal. His NG output seems clear but it was still copious with over 1200 cc being removed in the last 24 hours. KUB from this morning shows air throughout the colon suggesting this is likely an ileus. I would recommend continuing the NG until the output decreases. I will obtain another KUB in the morning. Continue treatment of UTI. Chang Grant MD Pager: [facility] [address] [place] [address], [address] [place] [address] Office:
--- NOTE | 2022-07-22 11:18 | CASEMGMT ---
Notified by nurse that pt may benefit from therapy while in the hospital. Contacted hospitalist who gave order for evals.
--- NOTE | 2022-07-22 12:03 | CASEMGMT ---
NEIL EATON in to pt room, pt sister and another family member present. Patient and family were provided a list of [facility] providers including quality and resource use data and consistent with the patient?s preferred geographic region, medical needs, and insurance network were provided from the [employer] Guide. Patient and family has chosen [facility] as they have had used in the past with another family member. RYAN Petit at [facility], referral made. Also sent referral through [employer]. Will await acceptance.
[2022-07-22 13:37] VITALS: BP 136/79; PULSE 92; RESP 18; TEMP 37.1; O2SAT 98
[2022-07-22 20:01] VITALS: BP 139/85; PULSE 91; RESP 18; TEMP 36.6; O2SAT 94
[2022-07-23 02:09] VITALS: BP 135/87; PULSE 99; RESP 18; TEMP 36.5; O2SAT 93
--- NOTE | 2022-07-23 05:05 | RAD_ITS ---
STUDY: AP X-RAY OF THE ABDOMEN AND PELVIS--2 VIEWS OF 502 HOURS ON 07/23/2022 REASON FOR EXAM: 56-year-old male with a clinical ileus. TECHNIQUE: 2 AP views of the abdomen and pelvis were performed. COMPARISON: None. FINDINGS: There is a moderate small and large intestinal ileus. The most prominently dilated intestine is a segment of small intestine in the mid abdomen. There is evidence of a ventricular peritoneal shunt with considerable shunt catheter in the abdomen and pelvis. There is no abdominal organomegaly. There are amorphous increased density within the pelvis to that probably represents contrast in the sigmoid colon. No abnormal intra-abdominal calcifications. There is marked degenerative change of the left hip joint with a partial vertical subluxation and marked narrowing of the joint space with deformity of both the acetabulum and femoral head. RAD/Abdomen Single View IMPRESSION: 1. Moderate small large intestine ileus with a most prominently dilated intestine being a segment of small intestine mid abdomen. 2. Presence of a ventriculoperitoneal shunt with considerable shunt catheter in the abdomen and pelvis. 3. No abdominal organomegaly. 4. Amorphous increased density within the pelvis that probably represents contrast within the sigmoid colon. 5. No abnormal intra-abdominal calcifications. 6. Marked degenerative changes and deformity of the left hip joint, left femoral head, and left acetabulum. Electronically Signed: John Hurst MD at 1:44 EDT ,
[2022-07-23] MEDS: Baclofen 10 MG Tablet 5 MG PO ×3 (05:58→21:22)
[2022-07-23 06:04] LABS: Absolute Lymphocyte Count 1.92 X10^3/uL (0.83-4.51); Absolute Neutrophil Count 6.5 X10^3/uL (2.0-7.7); Basophil# 0.03 X10^3/uL; Basophil% 0.3 % (0-1); Eosinophil# 0.04 X10^3/uL; Eosinophils% 0.4 % (0-5); Hematocrit 37.4 % (40-54); Hemoglobin 12.7 g/dL (13.0-16.5); Lymphocyte # 1.92 X10^3/ul (0.83-4.51); Lymphocyte % 19.5 % (19-41); Mean Corpuscular Hgb 29.8 pg (27.0-32.0); Mean Corpuscular Volume 87.8 fL (80-94); Mean Platelet Vol. 10.3 fl (6.2-12.0); Monocyte% 14.2 % (0-10); NRBC Flagged by Analyzer 0 % (0-5); Neutrophil # 6.45 X10^3/uL (2.7-7.7); Neutrophil % 65.4 % (47-70); Platelet Count 381 K/mm3 (150-450); RBC Distribution Width CV 13.2 % (11.6-14.6); RBC Distribution Width SD 42.6 fl (35.1-43.9); Red Blood Count 4.26 M/mm3 (4.6-6.2); White Blood Count 9.9 K/mm3 (4.4-11.0)
[2022-07-23 06:26] LABS: Anion Gap 5 (5-15); BUN 11 mg/dL (7-18); BUN/Creat Ratio 15.9 RATIO (10-20); Calcium,Total 8.6 mg/dL (8.5-10.1); Chloride 107 mmol/L (98-107); Creatinine, Serum 0.69 mg/dL (0.70-1.30); EST Glomerular Filtration Rate 126 mL/min (>60); Est Glom Filt Rate - Afr Amer 153 mL/min (>60); Estimated Creatinine Clearance 93.44 ml/min; Glucose 107 mg/dL (74-106); Potassium 3.5 mmol/L (3.5-5.1); Sodium Level 142 mmol/L (136-145)
--- NOTE | 2022-07-23 07:48 | PN.SURG_ITS ---
Subjective Subjective Patient is not complaining of any sharp abdominal pain or nausea Objective Data Objective Data Vital Signs: Vital Signs Temp Pulse Resp BP Pulse Ox O2 Del Method 97.7 F L 99 18 135/87 H 93 Room Air 07/23/22 02:07/23/22 02:07/23/22 02:07/23/22 02:07/23/22 02:07/23/22 02:09 Oxygen Delivery Method Room Air Weight: 118 lb 15.983 oz Body Mass Index (BMI) 20.4 Intake & Output: Intake and Output for Last 24 Hours 07/21/22 07/22/22 07/23/22 23:59 23:59 23:59 Intake Total 2597.5 / 2597.5 3372.5 / 3402.5 90 / 90 Output Total 1150 / 1150 3625 / 4600 1675 / 1675 Balance 1447.5 / 1447.5 -252.5 / -1197.5 -1585 / -1585 Lab / Micro Data Result Diagrams: 07/23/22 05:02 07/23/22 05:02 Labs: Laboratory Results - last 24 hr 07/23/22 05:02: WBC 9.9, RBC 4.26 L, Hgb 12.7 L, Hct 37.4 L, MCV 87.8, MCH 29.8, MCHC 34.0 D, RDW Std Deviation 42.6, RDW Coeff of Frieda 13.2, Plt Count 381, MPV 10.3, Immature Gran % (Auto) 0.200, Neut % (Auto) 65.4, Lymph % (Auto) 19.5, [place] % (Auto) 14.2 H, Eos % (Auto) 0.4, Baso % (Auto) 0.3, Absolute Neuts (auto) 6.5, Absolute Lymphs (auto) 1.92, Nucleated RBC % 0 07/23/22 05:02: Sodium 142, Potassium 3.5, Chloride 107, Carbon Dioxide 30.0, Anion Gap 5, BUN 11, Creatinine 0.69 L, Estim Creat Clear Calc 93.44, Est GFR (MDRD) Af Amer 153, Est GFR (MDRD) Non-Af 126, BUN/Creatinine Ratio 15.9, Glucose 107 H, Calcium 8.6 Micro: Microbiology 07/21/22 09:54 Blood Culture (Wb) - Anticubital Right Blood Culture - Preliminary No growth in 48 hours. 07/21/22 09:49 Blood Culture (Wb) - Anticubital Left Blood Culture - Preliminary No growth in 48 hours. 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 Gas is seen throughout the colon. This may represent an incomplete small bowel obstruction. Further follow-up is recommended. Opacities are seen in the urinary bladder suggestive of bladder calculi. Electronically Signed: Kingsley Butler MD at 10:09 EDT , Physical Exam Const oriented x3 Resp normal respiratory effort Cardio regular rate and regular rhythm GI soft to palpation and non-tender Assessment & Plan Assessment/Plan (1) Ileus due to infection: PLAN: The patient is soft and nontender and is not complaining of any sharp pain. He does have some hypoactive bowel sounds. His NG output seems clear but it was copious. I will give a soapsuds enema today to see if this starts advancing his stool. The patient had a KUB this morning which shows distended colon. Continue observation and NG suction and bowel regimen. Chang Grant MD Pager: [facility] [address] [place] [address], [address] [place] [address] Office:
--- NOTE | 2022-07-23 07:49 | PN.HOSP_ITS ---
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 Still has NG tube with copious amount of secretions. KUB obtained this a.m. demonstrated distended colon. Objective Data Objective Data Vital Signs: Vital Signs Temp Pulse Resp BP Pulse Ox O2 Del Method 97.7 F L 99 18 135/87 H 93 Room Air 07/23/22 02:07/23/22 02:07/23/22 02:07/23/22 02:07/23/22 02:07/23/22 02:09 Oxygen Delivery Method Room Air Weight: 53.977 kg Body Mass Index (BMI) 20.4 Intake & Output: Intake and Output for Last 24 Hours 07/21/22 07/22/22 07/23/22 23:59 23:59 23:59 Intake Total 2597.5 / 2597.5 3372.5 / 3402.5 90 / 90 Output Total 1150 / 1150 3625 / 4600 1675 / 1675 Balance 1447.5 / 1447.5 -252.5 / -1197.5 -1585 / -1585 Lab / Micro Data Result Diagrams: 07/23/22 05:02 07/23/22 05:02 Labs: Laboratory Results - last 24 hr 07/23/22 05:02: WBC 9.9, RBC 4.26 L, Hgb 12.7 L, Hct 37.4 L, MCV 87.8, MCH 29.8, MCHC 34.0 D, RDW Std Deviation 42.6, RDW Coeff of Frieda 13.2, Plt Count 381, MPV 10.3, Immature Gran % (Auto) 0.200, Neut % (Auto) 65.4, Lymph % (Auto) 19.5, [place] % (Auto) 14.2 H, Eos % (Auto) 0.4, Baso % (Auto) 0.3, Absolute Neuts (auto) 6.5, Absolute Lymphs (auto) 1.92, Nucleated RBC % 0 07/23/22 05:02: Sodium 142, Potassium 3.5, Chloride 107, Carbon Dioxide 30.0, Anion Gap 5, BUN 11, Creatinine 0.69 L, Estim Creat Clear Calc 93.44, Est GFR (MDRD) Af Amer 153, Est GFR (MDRD) Non-Af 126, BUN/Creatinine Ratio 15.9, Glucos e 107 H, Calcium 8.6 Micro: Microbiology 07/21/22 09:54 Blood Culture (Wb) - Anticubital Right Blood Culture - Preliminary No growth in 48 hours. 07/21/22 09:49 Blood Culture (Wb) - Anticubital Left Blood Culture - Preliminary No growth in 48 hours. 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 Gas is seen throughout the colon. This may represent an incomplete small bowel obstruction. Further follow-up is recommended. Opacities are seen in the urinary bladder suggestive of bladder calculi. Electronically Signed: Kingsley Butler MD at 10:09 EDT , Physical Exam Narrative GENERAL: Patient appears ill looking HEENT: Atraumatic; NG tube in place EYES; Anicteric, Normal Conjunctiva NECK; supple, normal thyroid, RESPIRATORY: Diminished to auscultation CARDIOVASCULAR: Regular S1 S2, GI: Nondistended but bowel sounds not appreciated : No Renal angle tenderness; EXTREMITIES: No edema, no clubbing, MUSCULOSKELETAL: no muscle wasting NEURO: Awake; no lateralizing signs. SKIN: No Rash PSYCH; Flat affect Assessment & Plan Assessment/Plan (1) Acute hyponatremia: (2) History of urinary retention: (3) Ileus due to infection: PLAN: Plan Patient is a 56-year-old gentleman presenting with abdominal pain with associated nausea vomiting and fever 1. Small bowel obstruction ? Patient has been admitted to regular nursing floor being managed conservatively with bowel rest NG tube to suction IV fluids pain meds as well as antinausea medications. Consult was placed to general surgery. Patient progressed being monitored clinically as well as with serial imaging studies. ? 07/22/2022. No bowel movement or return of bowel function ? 07/23/2022; Still has NG tube with copious amount of secretions. KUB obtained this a.m. demonstrated distend colon. Surgery is recommended subset enemas. Per patient has been passing some gas 2. Acute cystitis (UTI due to indwelling urinary catheter.) ? 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 Hydrocephalus ? Status post HANDLE TURNER shunt 4. Gastroparesis ? Per history 5. History of multiple bladder calculi ? Stable 6. DVT prophylaxis ? SC Lovenox Charges/Coding Visit Charges Inpatient E&M: 88450 Subs Hosp L2
[2022-07-23 08:15] VITALS: BP 131/84; PULSE 90; RESP 18; TEMP 37.3; O2SAT 95
[2022-07-23] MEDS: Menthol/Lanolin/Calamine/Znox 113 GM Tube 1 APPLIC TOPICAL ×2 (08:16→21:22)
[2022-07-23 09:21] VITALS: RESP 18; O2SAT 95
[2022-07-23] MEDS: Ceftriaxone 1 GM/50 ML BAG IV (10:24)
[2022-07-23] MEDS: Enoxaparin 40 MG/0.4 ML Syringe SC (10:24)
--- NOTE | 2022-07-23 13:45 | CASEMGMT ---
TC hazel Petit at [facility], she is aware pt still with NG. Will touch base on Tuesday for plan for SOC.
[2022-07-23 19:46] VITALS: BP 150/89; PULSE 100; RESP 18; TEMP 36.5; O2SAT 100
[2022-07-23] MEDS: 0.9% Saline Lock 10 ML Syringe IV ×2 (21:22→23:18)
[2022-07-23] MEDS: 0.9% Normal Saline 1,000 ML 125 ML IV (23:17)
[2022-07-24 02:38] VITALS: BP 136/90; PULSE 96; RESP 18; TEMP 36.6; O2SAT 93
--- NOTE | 2022-07-24 05:01 | PN.SURG_ITS ---
Subjective Subjective Patient's NG put out about 350 overnight another 350 till midnight yesterday- light brown in color. Patient denies flatus states his abdomen is a little achy. Objective Data Objective Data Vital Signs: Vital Signs Temp Pulse Resp BP Pulse Ox O2 Del Method 98 F 96 18 136/90 H 93 Room Air 07/24/22 02:38 07/24/22 02:38 07/24/22 02:38 07/24/22 02:38 07/24/22 02:38 07/24/22 02:38 Oxygen Delivery Method Room Air Weight: 118 lb 15.983 oz Body Mass Index (BMI) 20.4 Intake & Output: Intake and Output for Last 24 Hours 07/22/22 07/23/22 07/24/22 23:59 23:59 23:59 Intake Total 3372.5 / 3402.5 330 / 330 60 / 60 Output Total 3625 / 4600 1875 / 1875 550 / 550 Balance -252.5 / -1197.5 -1545 / -1545 -490 / -490 Lab / Micro Data Result Diagrams: 07/23/22 05:02 07/23/22 05:02 Labs: Laboratory Results - last 24 hr 07/23/22 05:02: WBC 9.9, RBC 4.26 L, Hgb 12.7 L, Hct 37.4 L, MCV 87.8, MCH 29.8, MCHC 34.0 D, RDW Std Deviation 42.6, RDW Coeff of Frieda 13.2, Plt Count 381, MPV 10.3, Immature Gran % (Auto) 0.200, Neut % (Auto) 65.4, Lymph % (Auto) 19.5, [place] % (Auto) 14.2 H, Eos % (Auto) 0.4, Baso % (Auto) 0.3, Absolute Neuts (auto) 6.5, Absolute Lymphs (auto) 1.92, Nucleated RBC % 0 07/23/22 05:02: Sodium 142, Potassium 3.5, Chloride 107, Carbon Dioxide 30.0, Anion Gap 5, BUN 11, Creatinine 0.69 L, Estim Creat Clear Calc 93.44, Est GFR (MDRD) Af Amer 153, Est GFR (MDRD) Non-Af 126, BUN/Creatinine Ratio 15.9, Glucose 107 H, Calcium 8.6 Micro: Microbiology 07/21/22 06:43 Urine, Catheterized Urine Culture - Preliminary Escherichia coli Gram negative kennedy 07/21/22 09:54 Blood Culture (Wb) - Anticubital Right Blood Culture - Preliminary No growth in 48 hours. 07/21/22 09:49 Blood Culture (Wb) - Anticubital Left Blood Culture - Preliminary No growth in 48 hours. Radiography Diagnostic Testing: Radiology Impression KUB X-Ray 07/23/22 05:05 IMPRESSION: 1. Moderate small large intestine ileus with a most prominently dilated intestine being a segment of small intestine mid abdomen. 2. Presence of a ventriculoperitoneal shunt with considerable shunt catheter in the abdomen and pelvis. 3. No abdominal organomegaly. 4. Amorphous increased density within the pelvis that probably represents contrast within the sigmoid colon. 5. No abnormal intra-abdominal calcifications. 6. Marked degenerative changes and deformity of the left hip joint, left femoral head, and left acetabulum. Electronically Signed: John Hurst MD at 1:44 EDT , Physical Exam Resp normal respiratory effort Cardio regular rate GI soft to palpation GI Narrative: Mild abdominal distention Inspection: abdominal distention Palpation: tender other (Mild diffuse) Assessment & Plan Assessment/Plan (1) Ileus due to infection: PLAN: Plan We will continue to try suppositories/enemas as he has a regimen at home that his sisters use as well. KUB ordered for this morning. will continue to monitor. N.p.o./IV fluids/NG Dorene Ruiz M.D. Pager: [phone] [facility] [address] [place] [address], Outpatient [place], [address] [place] [address] Office: [phone] Charges/Coding Visit Charges Inpatient E&M: 33860 Subs Hosp L2
[2022-07-24] MEDS: 0.9% Normal Saline 1,000 ML 125 ML IV ×3 (06:29→22:02)
[2022-07-24] MEDS: Baclofen 10 MG Tablet 5 MG PO ×3 (06:30→22:00)
--- NOTE | 2022-07-24 07:28 | PCM.PN.HOSP ---
Subjective Subjective Patient seen yet to have return of bowel function. Plan is to restart patient home bowel regimen. KUB obtained the day prior demonstrated moderate large small intestines ileus Objective Data Objective Data Vital Signs: Vital Signs Temp Pulse Resp BP Pulse Ox O2 Del Method 98 F 96 18 136/90 H 93 Room Air 07/24/22 02:38 07/24/22 02:38 07/24/22 02:38 07/24/22 02:38 07/24/22 02:38 07/24/22 02:38 Oxygen Delivery Method Room Air Weight: 53.977 kg Body Mass Index (BMI) 20.4 Intake & Output: Intake and Output for Last 24 Hours 07/22/22 07/23/22 07/24/22 23:59 23:59 23:59 Intake Total 3372.5 / 3402.5 330 / 330 2019.17 / 2018. Output Total 3625 / 4600 1875 / 1875 1050 / 1050 Balance -252.5 / -1197.5 -1545 / -1545 969.17 / 969.17 Lab / Micro Data Result Diagrams: 07/24/22 07:38 07/23/22 05:02 Micro: Microbiology 07/21/22 06:43 Urine, Catheterized Urine Culture - Preliminary Escherichia coli Gram negative kennedy 07/21/22 09:54 Blood Culture (Wb) - Anticubital Right Blood Culture - Preliminary No growth in 48 hours. 07/21/22 09:49 Blood Culture (Wb) - Anticubital Left Blood Culture - Preliminary No growth in 48 hours. Radiography Diagnostic Testing: Radiology Impression KUB X-Ray 07/23/22 05:05 IMPRESSION: 1. Moderate small large intestine ileus with a most prominently dilated intestine being a segment of small intestine mid abdomen. 2. Presence of a ventriculoperitoneal shunt with considerable shunt catheter in the abdomen and pelvis. 3. No abdominal organomegaly. 4. Amorphous increased density within the pelvis that probably represents contrast within the sigmoid colon. 5. No abnormal intra-abdominal calcifications. 6. Marked degenerative changes and deformity of the left hip joint, left femoral head, and left acetabulum. Electronically Signed: John Hurst MD at 1:44 EDT , Physical Exam Narrative GENERAL: Patient appears ill looking HEENT: Atraumatic; NG tube in place EYES; Anicteric, Normal Conjunctiva NECK; supple, normal thyroid, RESPIRATORY: Diminished to auscultation CARDIOVASCULAR: Regular S1 S2, GI: Nondistended but bowel sounds not appreciated : No Renal angle tenderness; EXTREMITIES: No edema, no clubbing, MUSCULOSKELETAL: no muscle wasting NEURO: Awake; no lateralizing signs. SKIN: No Rash PSYCH; Flat affect Assessment & Plan Assessment/Plan (1) Acute hyponatremia: (2) History of urinary retention: (3) Ileus due to infection: PLAN: Plan Patient is a 56-year-old gentleman presenting with abdominal pain with associated nausea vomiting and fever 1. Small bowel obstruction ? Patient has been admitted to regular nursing floor being managed conservatively with bowel rest NG tube to suction IV fluids pain meds as well as antinausea medications. Consult was placed to general surgery. Patient progressed being monitored clinically as well as with serial imaging studies. ? 07/22/2022. No bowel movement or return of bowel function ? 07/23/2022; Still has NG tube with copious amount of secretions. KUB obtained this a.m. demonstrated distend colon. Surgery is recommended subset enemas. Per patient has been passing some gas -07/24/2022 ; Patient seen yet to have return of bowel function. Plan is to restart patient home bowel regimen. KUB obtained the day prior demonstrated moderate large small intestines ileus 2. Acute cystitis (UTI due to indwelling urinary catheter.) ? 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 Hydrocephalus ? Status post DOUBLE SURFACE OPERATOR shunt 4. Gastroparesis ? Per history 5. History of multiple bladder calculi ? Stable 6. DVT prophylaxis ? SC Lovenox Charges/Coding Visit Charges Inpatient E&M: 96075 Subs Hosp L2
[2022-07-24] MEDS: Bisacodyl 10 MG Suppository RC ×2 (08:01→16:12)
[2022-07-24 08:04] LABS: Absolute Lymphocyte Count 1.47 X10^3/uL (0.83-4.51); Absolute Neutrophil Count 7.9 X10^3/uL (2.0-7.7); Basophil# 0.03 X10^3/uL; Basophil% 0.3 % (0-1); Eosinophil# 0.03 X10^3/uL; Eosinophils% 0.3 % (0-5); Hematocrit 40.5 % (40-54); Lymphocyte # 1.47 X10^3/ul (0.83-4.51); Lymphocyte % 13.8 % (19-41); Mean Corp Hgb Conc 32.1 g/dL (32-36); Mean Corpuscular Hgb 28.9 pg (27.0-32.0); Mean Platelet Vol. 9.8 fl (6.2-12.0); Monocyte# 1.16 X10^3/uL; Monocyte% 10.9 % (0-10); NRBC Flagged by Analyzer 0 % (0-5); Neutrophil # 7.94 X10^3/uL (2.7-7.7); Neutrophil % 74.5 % (47-70); Platelet Count 385 K/mm3 (150-450); RBC Distribution Width CV 13.1 % (11.6-14.6); RBC Distribution Width SD 43.3 fl (35.1-43.9); White Blood Count 10.7 K/mm3 (4.4-11.0)
[2022-07-24 08:30] VITALS: BP 143/88; PULSE 95; RESP 18; TEMP 36.4; O2SAT 94
[2022-07-24 08:39] LABS: Anion Gap 12 (5-15); BUN 21 mg/dL (7-18); BUN/Creat Ratio 29.7 RATIO (10-20); Chloride 105 mmol/L (98-107); Creatinine, Serum 0.71 mg/dL (0.70-1.30); EST Glomerular Filtration Rate 123 mL/min (>60); Est Glom Filt Rate - Afr Amer 149 mL/min (>60); Estimated Creatinine Clearance 90.81 ml/min; Glucose 95 mg/dL (74-106); Potassium 3.1 mmol/L (3.5-5.1); Sodium Level 143 mmol/L (136-145)
[2022-07-24] MEDS: Ceftriaxone 1 GM/50 ML BAG IV (11:47)
[2022-07-24] MEDS: Enoxaparin 40 MG/0.4 ML Syringe SC (11:48)
[2022-07-24] MEDS: Menthol/Lanolin/Calamine/Znox 113 GM Tube 1 APPLIC TOPICAL ×2 (11:48→21:58)
--- NOTE | 2022-07-24 12:20 | RAD_ITS ---
STUDY: X-RAY - ABDOMEN/PELVIS REASON FOR EXAM: Male, 56 years old. illius TECHNIQUE: AP supine and decubitus views of the abdomen and pelvis. COMPARISON: 07/23/2022 FINDINGS: Nasogastric tube with the tip in the left upper quadrant likely in the body the stomach. Right-sided ventricular peritoneal shunt catheter terminates in the left side of the pelvis. Slight decrease in the caliber of air-filled dilated bowel consistent with improved adynamic ileus. There is no demonstrated free abdominal air. The visualized liver, spleen and kidneys are grossly normal in size and morphology. Normal soft tissue structures. Normal visualized osseous structures. RAD/Abd Decub and/or Erect(Portabl IMPRESSION: 1. Nasogastric tube with the tip in the left upper quadrant likely in the body the stomach. 2. Ventriculoperitoneal shunt catheter. 3. Slightly improved adynamic ileus. 4. No pneumoperitoneum. Electronically Signed: Evangelista Beatty MD at 13:00 EDT ,
[2022-07-24 15:03] VITALS: BP 150/91; PULSE 98; RESP 18; TEMP 36.9; O2SAT 94
[2022-07-24] MEDS: Mineral Oil 30 ML UDC PO (16:12)
[2022-07-24 22:00] VITALS: BP 136/88; PULSE 88; RESP 18; TEMP 36.8; O2SAT 100
[2022-07-25] MEDS: 0.9% Normal Saline 1,000 ML 125 ML IV (05:10)
[2022-07-25] MEDS: Baclofen 10 MG Tablet 5 MG PO (05:11)
[2022-07-25] MEDS: Potassium Chloride Oral Tablet 20 MEQ 40 MEQ PO (09:09)
[2022-07-25] MEDS: Enoxaparin 40 MG/0.4 ML Syringe SC (09:09)
[2022-07-25] MEDS: Menthol/Lanolin/Calamine/Znox 113 GM Tube 1 APPLIC TOPICAL (09:10)
[2022-07-25] MEDS: Ceftriaxone 1 GM/50 ML BAG IV (09:12)
--- NOTE | 2022-07-25 09:56 | DS.PCM_ITS ---
Providers Date of Admission: 07/21/22 Date of Discharge: 07/25/22 Primary Care Physician: Dr. Lyndon Sanders MD Consultations 07/21/22 09:42 Consult: General Surgery Routine Consulting Provider: Chang Grant Reason for Consult: SBO EMERGENT Consult: No Notified: Yes Date Notified: 07/21/22 Time Notified: 08:15 Method of Notification: Verbal Reason For Visit: ILEUS Diagnosis Discharge Diagnosis (1) Acute hyponatremia: Status: Acute Code(s): E87.1 - Hypo-osmolality and hyponatremia (2) History of urinary retention: Status: Acute Code(s): Z87.898 - Personal history of other specified conditions (3) Ileus due to infection: Status: Acute Code(s): K56.7 - Ileus, unspecified; B99.9 - Unspecified infectious disease Plan Patient is a 56-year-old gentleman presenting with abdominal pain with associated nausea vomiting and fever 1. Small bowel obstruction ? Patient has been admitted to regular nursing floor being managed conservatively with bowel rest NG tube to suction IV fluids pain meds as well as antinausea medications. Consult was placed to general surgery. Patient progressed being monitored clinically as well as with serial imaging studies. ? 07/22/2022. No bowel movement or return of bowel function ? 07/23/2022; Still has NG tube with copious amount of secretions. KUB obtained this a.m. demonstrated distend colon. Surgery is recommended subset enemas. Pe r patient has been passing some gas -07/24/2022 ; Patient seen yet to have return of bowel function. Plan is to restart patient home bowel regimen. KUB obtained the day prior demonstrated moderate large small intestines ileus -07/25/2022 patient did have significant bowel movement the day prior. Patient small bowel obstruction/ileus resolved patient will be assessed for possible discharge 2. Acute cystitis (UTI due to indwelling urinary catheter.) With E. coli and Proteus mirabilis ? 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 07/25/2022; cultures came back positive for E. coli and Proteus mirabilis discharged home on appropriate antibiotic therapy 3. Hydrocephalus ? Status post GRADES 1 THRU 6 HOME TEACHER shunt 4. Gastroparesis ? Per history 5. History of multiple bladder calculi ? Stable 6. DVT prophylaxis ? SC Lovenox Medications at Discharge Home Medications linaclotide 72 mcg capsule (Linzess) 145 mcg PO DAILY constipation 07/31/21 bisacodyl 10 mg rectal suppository 10 mg DC DAILY constipation 04/13/22 mineral oil 30 ml PO DAILY PRN Constipation 04/13/22 baclofen 5 mg tablet 5 mg PO TID spasms 07/21/22 cefdinir 300 mg capsule 300 mg PO BID #14 caps 07/25/22 Hospital Course Summary of Care Provided Minutes Spent on Discharge: 35 Physical Exam Narrative GENERAL: Patient appears ill looking HEENT: Atraumatic; NG tube in place EYES; Anicteric, Normal Conjunctiva NECK; supple, normal thyroid, RESPIRATORY: Diminished to auscultation CARDIOVASCULAR: Regular S1 S2, GI: Nondistended but bowel sounds not appreciated : No Renal angle tenderness; EXTREMITIES: No edema, no clubbing, MUSCULOSKELETAL: no muscle wasting NEURO: Awake; no lateralizing signs. SKIN: No Rash PSYCH; Flat affect Weight / BMI Weight Weight: 53.977 kg Body Mass Index (BMI) 20.4 ABG / Lab / Microbiology Data Result Diagrams: 07/24/22 07:38 07/24/22 07:38 Microbiology: Microbiology 07/21/22 06:43 Urine, Catheterized Urine Culture - Final Escherichia coli Proteus mirabilis 07/21/22 09:54 Blood Culture (Wb) - Anticubital Right Blood Culture - Preliminary No growth in 48 hours. 07/21/22 09:49 Blood Culture (Wb) - Anticubital Left Blood Culture - Preliminary No growth in 48 hours. Radiography Diagnostic Testing: Radiology Impression Abdomen X-Ray 07/24/22 12:20 IMPRESSION: 1. Nasogastric tube with the tip in the left upper quadrant likely in the body the stomach. 2. Ventriculoperitoneal shunt catheter. 3. Slightly improved adynamic ileus. 4. No pneumoperitoneum. Electronically Signed: Evangelista Beatty MD at 13:00 EDT , D/C Instructions Discharge Diet: No restrictions Call your doctor if you observe: Fever of 101 or Higher, Shortness of breath, Fainting spells and Chest pain Meaningful Use Info Meaningful Use Diagnoses (Choose all that apply): None applicable Discharge Plan Admission Admit Date/Time: 07/21/22 08:09 Attending Provider: Gavino De Luna Primary Care Provider: Lyndon Sanders Consulting Providers: Chang Grant Instructions Patient Instructions: Ileus Discharge Orders/Prescriptions Prescriptions: New cefdinir 300 mg capsule 300 mg PO BID Qty: 14 0RF Continued Linzess 72 mcg capsule 145 mcg PO DAILY Label Comments: TAKE 1 CAP BY MOUTH ONCE DAILY ON EMPTY STOMACH SWALLOW WHOLE DO NOT CHEW/CRUSH mineral oil Oil 30 ml PO DAILY PRN (Reason: Constipation) bisacodyl 10 mg suppository 10 mg DC DAILY Rx Instructions: OTC baclofen 5 MG tablet 5 mg PO TID Rx Instructions: Hold for sedation/lethargy Referrals / Follow Up: Lyndon Sanders MD [Primary Care Provider] - In 1 Week Disposition Disposition (needs filled in before D/C Order can be placed): Home Health Service Charges/Coding Visit Charges Inpatient E&M: 34107 Disch Hosp
[2022-07-25 10:01] VITALS: BP 134/68; PULSE 70; RESP 18; TEMP 37.2; O2SAT 98
--- NOTE | 2022-07-25 10:24 | PN.SURG_ITS ---
Subjective Subjective Patient tolerating regular diet with no issues. Denies any abdominal pain. Objective Data Objective Data Vital Signs: Vital Signs Temp Pulse Resp BP Pulse Ox O2 Del Method 98.3 F 88 18 136/88 H 100 Room Air 07/24/22 22:00 07/24/22 22:00 07/24/22 22:00 07/24/22 22:00 07/24/22 22:00 07/24/22 22:00 Oxygen Delivery Method Room Air Weight: 118 lb 15.983 oz Body Mass Index (BMI) 20.4 Intake & Output: Intake and Output for Last 24 Hours 07/23/22 07/24/22 07/25/22 23:59 23:59 23:59 Intake Total 330 / 330 4254.59 / 4254.59 891.67 / 891.67 Output Total 1875 / 1875 1650 / 1950 450 / 450 Balance -1545 / -1545 2604.59 / 2304.59 441.67 / 441.67 Lab / Micro Data Result Diagrams: 07/24/22 07:38 07/24/22 07:38 Micro: Microbiology 07/21/22 06:43 Urine, Catheterized Urine Culture - Final Escherichia coli Proteus mirabilis 07/21/22 09:54 Blood Culture (Wb) - Anticubital Right Blood Culture - Preliminary No growth in 48 hours. 07/21/22 09:49 Blood Culture (Wb) - Anticubital Left Blood Culture - Preliminary No growth in 48 hours. Radiography Diagnostic Testing: Radiology Impression Abdomen X-Ray 07/24/22 12:20 IMPRESSION: 1. Nasogastric tube with the tip in the left upper quadrant likely in the body the stomach. 2. Ventriculoperitoneal shunt catheter. 3. Slightly improved adynamic ileus. 4. No pneumoperitoneum. Electronically Signed: Evangelista Beatty MD at 13:00 EDT , Physical Exam Resp normal respiratory effort Cardio regular rate GI soft to palpation GI Narrative: Mild abdominal distention Inspection: Negative for abdominal distention Palpation: Negative for tender Assessment & Plan Assessment/Plan (1) Ileus due to infection: PLAN: Plan Patient's having bowel function tolerating regular diet okay to DC from surgery standpoint. Dorene Ruiz M.D. Pager: [phone] [facility] [address] [place] [address] [address] [place] [address] Office: [phone]
== END 2022-07-25 12:04 | disposition home health service (06) | DRG 699 ==
LOC: ED 05:34 → MS3 08:35
PROVIDERS: Admitting Provider Internal Medicine; Emergency Provider Emergency Medicine; PCP Family Medicine; Visit Provider Internal Medicine
DX: T83.511A Infection and inflammatory reaction due to indwelling urethral catheter, initial encounter (principal); K56.7 Ileus, unspecified; E87.1 Hypo-osmolality and hyponatremia; G91.9 Hydrocephalus, unspecified; N30.00 Acute cystitis without hematuria; G40.909 Epilepsy, unspecified, not intractable, without status epilepticus; K31.84 Gastroparesis; Y84.6 Urinary catheterization as the cause of abnormal reaction of the patient, or of later complication, without mention of misadventure at the time of the procedure; Z98.2 Presence of cerebrospinal fluid drainage device; Z87.442 Personal history of urinary calculi; Z79.899 Other long term (current) drug therapy; B96.20 Unspecified Escherichia coli [E. coli] as the cause of diseases classified elsewhere
CPT/HCPCS: 36415; 74018; 74019; 74176; 80048; 80053; 81001; 83605; 83690; 83735; 84100; 85025; 87040; 87077; 87086; 87088; 87186; 97116; 97162; 97166; 97530; 97535; 97802; 99285; J7030; A4216; C1887

== ENCOUNTER 2022-08-10 17:41 | Outpatient (RCR) | payer MEDICARE, SELFPAY ==
[2022-08-10 17:49] LABS: Color, Urine Yellow (Yellow); Glucose, Dipstick Normal (Normal); Ketone-Dipstick 50 mg/dl (Negative); Leukocyte Esterase-Dipstick 500 /ul (Negative); Nitrite-Dipstick Negative (Negative); Occult Blood-Urine 150 /ul (Negative); Protein-Dipstick 100 mg/dl (Negative); Urine Bilirubin Dipstick Negative (Negative); Urine Clarity Sl. Cloudy (Clear); Urine Urobilinogen Normal (Normal)
== END 2022-08-10 18:00 | disposition home or self-care (01) ==
LOC: HHLAB 17:41
PROVIDERS: PCP Family Medicine; Visit Provider Family Medicine
DX: T83.511D Infection and inflammatory reaction due to indwelling urethral catheter, subsequent encounter (principal)
CPT/HCPCS: 81002; 87077; 87086; 87088; 87186

== ENCOUNTER 2022-08-10 21:32 | Inpatient (IN) | payer MEDICARE, MEDICAID, SELFPAY ==
[2022-08-10 21:33] VITALS: BP 152/89; PULSE 97; RESP 16; TEMP 37.8; O2SAT 98; BMI 21.0
--- NOTE | 2022-08-10 22:11 | EDS_ITS ---
HPI History of Present Illness Chief Complaint: Fever Informant: patient and family Onset/Context/Timing Onset: Days Narrative Narrative: Patient presents with his sister for evaluation of fever. She is concerned that he may have a UTI. Patient has a chronic indwelling Bowman catheter secondary to urinary retention. Sister states it was last changed out not long ago. She states for the past 4 days or so he has felt warm and today had a temperature up to 103. He has not had significant cough, vomiting, or diarrhea. [facility] Medical History Chronic indwelling Bowman catheter Gastroparesis History of urinary retention Hydrocephalus Hypertension Ileus Kidney stones Seizures Home Medications linaclotide 72 mcg capsule (Linzess) 145 mcg PO DAILY constipation 07/31/21 [History Last Taken 07/20/22] bisacodyl 10 mg rectal suppository 10 mg AL DAILY constipation 04/13/22 [History Last Taken 07/20/22] mineral oil 30 ml PO DAILY PRN Constipation 04/13/22 [History Last Taken 07/18/22] baclofen 5 mg tablet 5 mg PO TID spasms 07/21/22 [History Last Taken 07/20/22] Allergy/AdvReac Type Severity Reaction Status Date / Time Iodinated Contrast Media Allergy Anaphylaxis Verified 08/10/22 21:39 [Iodinated Contrast Media - IV Dye] nitrofurantoin AdvReac Upset Verified 08/10/22 21:39 Stomach Family History Father Heart disease Kidney stones Prostate disease Brother Kidney stones Other Cancer Peptic ulcer disease Surgical History S/P release of urethral stricture 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 Social History household members: family Smoking Status: Never smoker alcohol intake: never substance use type: does not use ROS ROS ED Constitutional Constitutional ED: Reports fever(s); Denies chills Eyes Eyes: Denies change in vision or discharge from eye(s) ENT ENT ED: Denies discharge from eye(s), rhinorrhea or sore throat Cardiovascular Cardiovascular: Denies chest pain or palpitations Respiratory/Chest Respiratory/Chest: Denies cough or dyspnea Gastrointestinal Gastrointestinal: Denies abdominal pain, diarrhea, nausea or vomiting Musculoskeletal Musculoskeletal: Denies back pain or extremity pain Integumentary Denies Abrasions or rash Neurologic Neurologic: Denies headache(s) or weakness Allergic/Immunologic Allergic/Immunologic ED: Denies lip swelling or urticaria EXAM Physical Exam Const Vital Signs: 08/10/22 21:33 08/10/22 21:59 08/10/22 22:39 Temperature 100.0 F H 99.4 F H Temperature Source Temporal Temporal Pulse Rate 97 93 Respiratory Rate 16 17 Respiratory Effort Normal Non-Labored Respiratory Pattern Normal Blood Pressure 152/89 H 141/94 H Blood Pressure Mean 110 109 Pulse Ox 98 94 Oxygen Delivery Method Room Air Room Air 08/10/22 23:00 Temperature 99.4 F H Temperature Source Temporal Pulse Rate 91 Respiratory Rate 17 Respiratory Effort Respiratory Pattern Blood Pressure 146/86 H Blood Pressure Mean 106 Pulse Ox 94 Oxygen Delivery Method Room Air Positive well nourished and well developed General Appearance ED: well developed HEENT Reports normocephalic and head/scalp atraumatic Eyes PERRL and EOMs intact bilaterally Neck supple Chest Wall inspection of chest normal and palpation of chest normal Resp normal respiratory effort and clear to auscultation bilaterally Cardio regular rate and regular rhythm GI non-tender Auscultation: hypoactive bowel sounds Palpation: soft Extremity normal to inspection Neuro oriented x3 Sensorium / Orientation: alert Psych mental status grossly normal Skin no rashes or lesions noted MDM MDM MDM Narrative Medical decision making narrative: Patient reportedly had a temp of 103 at home did not receive anything for fever control. Temperature here is 100.0. Bowman catheter is completely replaced and urine sample taken out of new set up. Blood and urine cultures obtained. Swabs for COVID and influenza ordered. Lab Data Attestation: I reviewed the patient's lab results. Labs: Laboratory Results - last 24 hr 08/10/22 08/10/22 08/10/22 22:06 22:06 22:06 WBC 11.4 H RBC 4.27 L Hgb 12.5 L Hct 35.6 L MCV 83.4 MCH 29.3 MCHC 35.1 RDW Std Deviation 38.2 RDW Coeff of Frieda 12.6 Plt Count 376 MPV 9.9 Immature Gran % (Auto) 0.400 Neut % (Auto) 67.6 Lymph % (Auto) 13.3 L [place] % (Auto) 18.4 H Eos % (Auto) 0.1 Baso % (Auto) 0.2 Absolute Neuts (auto) 7.7 Absolute Lymphs (auto) 1.52 Nucleated RBC % 0 Differential Comment SEE COMMENT Diff Path Review May foll Platelet Estimate ADEQUATE RBC Morphology N CHROM Sodium 119 L* Potassium 3.8 Chloride 83 L Carbon Dioxide 27.0 Anion Gap 9 BUN 6 L Creatinine 0.68 L Estim Creat Clear Calc 94.81 Est GFR (MDRD) Af Amer 156 Est GFR (MDRD) Non-Af 129 BUN/Creatinine Ratio 8.8 L Glucose 115 H Lactic Acid 1.1 Calcium 8.5 Total Bilirubin 0.50 Direct Bilirubin 0.16 AST 24 ALT 25 Alkaline Phosphatase 62 Total Protein 7.2 Albumin 2.9 L Globulin 4.3 H Urine Color Urine Clarity Urine pH Ur Specific [place] Urine Protein Urine Glucose (UA) Urine Ketones Urine Occult Blood Urine Nitrite Urine Bilirubin Urine Urobilinogen Ur Leukocyte Esterase Urine RBC Urine WBC Ur Squamous Epith Cells Urine Bacteria Urine Mucus 08/10/22 22:25 WBC RBC Hgb Hct MCV MCH MCHC RDW Std Deviation RDW Coeff of Frieda Plt Count MPV Immature Gran % (Auto) Neut % (Auto) Lymph % (Auto) [place] % (Auto) Eos % (Auto) Baso % (Auto) Absolute Neuts (auto) Absolute Lymphs (auto) Nucleated RBC % Differential Comment Diff Path Review Platelet Estimate RBC Morphology Sodium Potassium Chloride Carbon Dioxide Anion Gap BUN Creatinine Estim Creat Clear Calc Est GFR (MDRD) Af Amer Est GFR (MDRD) Non-Af BUN/Creatinine Ratio Glucose Lactic Acid Calcium Total Bilirubin Direct Bilirubin AST ALT Alkaline Phosphatase Total Protein Albumin Globulin Urine Color Straw Urine Clarity Sl. Cloudy Urine pH 7.0 Ur Specific [place] 1.010 Urine Protein 30 H Urine Glucose (UA) Normal Urine Ketones 15 H Urine Occult Blood 150 H Urine Nitrite Positive H Urine Bilirubin Negative Urine Urobilinogen Normal Ur Leukocyte Esterase 500 H Urine RBC 0-5 SEEN Urine WBC 25-50 SEEN Ur Squamous Epith Cells 0 SEEN Urine Bacteria 1+ Urine Mucus 0 SEEN Radiography Chest X-Ray - ED: 1 View, Read by ED Physician, Chronic Changes and No Infiltrates Diagnostic Testing: Clinical Impression(s) from Imaging Studies Chest X-Ray 08/10/22 22:44 IMPRESSION: No acute abnormal cardiopulmonary finding. Electronically Signed: Brock Alberto MD at 23:02 EDT , Treatment and Re-Evaluation Narrative: Purple chest x-ray per my interpretation reveals no focal infiltrate. Radiology interpretation is reviewed and agrees. CBC reveals a white count of 11.4 but no left shift is appreciated. Chemistry studies significant for a sodium of 119. His sodium was 143 on July 24 of this year. Lactic acid is normal at 1.1. LFTs unremarkable. Urinalysis is positive for nitrites with 25-50 white cells and 1+ bacteria. COVID and influenza swabs are negative. Blood and urine cultures have been sent. Patient will be given a dose of Rocephin. IV fluids have been ordered to correct his sodium. I will speak with hospitalist regarding admission. Discharge Plan Triage Chief Complaint: Fever ED Provider: Maddie Vasquez Dx/Rx/DC Orders Clinical Impression: Hyponatremia, Fever, UTI (urinary tract infection) Prescriptions: No Action Linzess 72 mcg capsule 145 mcg PO DAILY Label Comments: TAKE 1 CAP BY MOUTH ONCE DAILY ON EMPTY STOMACH SWALLOW WHOLE DO NOT CHEW/CRUSH mineral oil Oil 30 ml PO DAILY PRN (Reason: Constipation) bisacodyl 10 mg suppository 10 mg AL DAILY Rx Instructions: OTC baclofen 5 MG tablet 5 mg PO TID Rx Instructions: Hold for sedation/lethargy Primary Care Provider: Lyndon Sanders Referrals: Lyndon Sanders MD [Primary Care Provider] - Disposition Disposition: Acute Care Hospital [facility]
--- NOTE | 2022-08-10 22:20 | ED.RN ---
Pt hannon cath from home d/c. New 16f hannon cath inserted without any difficulty. Draining clear with brownish shreds
[2022-08-10 22:27] LABS: Absolute Lymphocyte Count 1.52 X10^3/uL (0.83-4.51); Absolute Neutrophil Count 7.7 X10^3/uL (2.0-7.7); Basophil# 0.02 X10^3/uL; Basophil% 0.2 % (0-1); Eosinophil# 0.01 X10^3/uL; Eosinophils% 0.1 % (0-5); Hematocrit 35.6 % (40-54); Hemoglobin 12.5 g/dL (13.0-16.5); Lymphocyte # 1.52 X10^3/ul (0.83-4.51); Lymphocyte % 13.3 % (19-41); Mean Corp Hgb Conc 35.1 g/dL (32-36); Mean Corpuscular Hgb 29.3 pg (27.0-32.0); Mean Corpuscular Volume 83.4 fL (80-94); Mean Platelet Vol. 9.9 fl (6.2-12.0); Monocyte% 18.4 % (0-10); NRBC Flagged by Analyzer 0 % (0-5); Neutrophil % 67.6 % (47-70); POSITIVE DIFFERENTIAL YES; Platelet Count 376 K/mm3 (150-450); RBC Distribution Width CV 12.6 % (11.6-14.6); RBC Distribution Width SD 38.2 fl (35.1-43.9); Red Blood Count 4.27 M/mm3 (4.6-6.2); White Blood Count 11.4 K/mm3 (4.4-11.0)
[2022-08-10] MEDS: Acetaminophen 500 MG Tablet 1000 MG PO (22:32)
[2022-08-10] MEDS: 0.9% Normal Saline 1,000 ML 150 ML IV (22:32)
[2022-08-10 22:36] LABS: Mucous, Urine 0 SEEN /hpf (<or=2+); Squamous Epithelial Cells - UA 0 SEEN /hpf (0-5)
[2022-08-10 22:36] LABS: Differential Indicated SCAN CRITERIA MET
[2022-08-10 22:38] LABS: Color, Urine Straw (Yellow); Glucose, Dipstick Normal (Normal); Ketone-Dipstick 15 mg/dl (Negative); Leukocyte Esterase-Dipstick 500 /ul (Negative); Nitrite-Dipstick Positive (Negative); Occult Blood-Urine 150 /ul (Negative); Protein-Dipstick 30 mg/dl (Negative); Urine Bilirubin Dipstick Negative (Negative); Urine Clarity Sl. Cloudy (Clear); Urine Urobilinogen Normal (Normal)
[2022-08-10 22:39] VITALS: BP 141/94; PULSE 93; RESP 17; TEMP 37.4; O2SAT 94
--- NOTE | 2022-08-10 22:44 | RAD_ITS ---
STUDY: X-RAY CHEST REASON FOR EXAM: Male, 56 years old. Fever TECHNIQUE: Portable, upright, AP chest radiograph COMPARISON: 07/21/2022 abdomen x-ray FINDINGS: Right-sided shunt tubing redemonstrated. The lungs are clear and expanded. There is no demonstrated pleural abnormality. Normal size heart. Normal mediastinum and mike. Normal visualized pulmonary arteries. Normal visualized aortic arch and descending thoracic aorta. Partial redemonstration of gaseous bowel distention. RAD/Chest 1 View (Portable) IMPRESSION: No acute abnormal cardiopulmonary finding. Electronically Signed: Brock Alberto MD at 23:02 EDT ,
[2022-08-10 22:47] LABS: Bacteria 1+ /hpf (None Seen); Red Blood Cells-Urine 0-5 SEEN /hpf (0-5); White Blood Cells 25-50 SEEN /hpf (0-5)
[2022-08-10 22:50] LABS: Lactic Acid 1.1 mmol/L (0.4-1.9)
[2022-08-10 22:51] LABS: AST(SGOT) 24 U/L (15-37); Alanine Aminotransfer ALT/SGPT 25 U/L (16-61); Albumin, Serum 2.9 g/dL (3.2-5.0); Alkaline Phosphatase 62 U/L (45-117); Anion Gap 9 (5-15); BUN 6 mg/dL (7-18); BUN/Creat Ratio 8.8 RATIO (10-20); Bilirubin, Direct 0.16 mg/dL (0.00-0.30); Calcium,Total 8.5 mg/dL (8.5-10.1); Chloride 83 mmol/L (98-107); Creatinine, Serum 0.68 mg/dL (0.70-1.30); EST Glomerular Filtration Rate 129 mL/min (>60); Est Glom Filt Rate - Afr Amer 156 mL/min (>60); Estimated Creatinine Clearance 94.81 ml/min; Globulin 4.3 g/dL (2.2-4.2); Glucose 115 mg/dL (74-106); Potassium 3.8 mmol/L (3.5-5.1); Protein, Total 7.2 g/dL (6.4-8.2); Sodium Level 119 mmol/L (136-145)
[2022-08-10 23:00] VITALS: BP 146/86; PULSE 91; RESP 17; TEMP 37.4; O2SAT 94
[2022-08-10] MEDS: 0.9% Normal Saline 1,000 ML 999 ML IV (23:02)
[2022-08-10 23:10] LABS: Platelet Estimate ADEQUATE (ADEQ); Red Cell Morphology N CHROM NORMAL (NORM C&C)
[2022-08-10 23:33] VITALS: BP 131/87; PULSE 89; RESP 17; TEMP 37.4; O2SAT 94
[2022-08-10] MEDS: Ceftriaxone 1 GM/50 ML BAG IV (23:33)
--- NOTE | 2022-08-10 23:52 | PCM.HP.STD ---
Documented by User: NGHIA Valdivia 08/11/22 00:04 HPI - General General Date of Admission: 08/10/22 Date of Service: 08/10/22 Chief Complaint: Fever HPI Narrative JIAN LATAMIRANO, is a 56 M who presents with fever. Patient has a chronic indwelling catheter and patient's sister is concerned for UTIs which patient gets frequently. Patient sister reports that he had a fever of 103 at home. Patient's sister reports that she did not medicate him as she did not want to mask the fever prior to bringing him into the ER. Patient has a history of gastroparesis and bowel obstructions. [facility] Medical History Chronic indwelling Bowman catheter Gastroparesis History of urinary retention Hydrocephalus Hypertension Ileus Kidney stones Seizures Home Medications linaclotide 72 mcg capsule (Linzess) 145 mcg PO DAILY constipation 07/31/21 [History Last Taken 07/20/22] bisacodyl 10 mg rectal suppository 10 mg MI DAILY constipation 04/13/22 [History Last Taken 07/20/22] mineral oil 30 ml PO DAILY PRN Constipation 04/13/22 [History Last Taken 07/18/22] baclofen 5 mg tablet 5 mg PO TID spasms 07/21/22 [History Last Taken 07/20/22] Allergy/AdvReac Type Severity Reaction Status Date / Time Iodinated Contrast Media Allergy Anaphylaxis Verified 08/10/22 21:39 [Iodinated Contrast Media - IV Dye] nitrofurantoin AdvReac Upset Verified 08/10/22 21:39 Stomach Family History Father Heart disease Kidney stones Prostate disease Brother Kidney stones Other Cancer Peptic ulcer disease Surgical History S/P release of urethral stricture 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 Social History household members: family Smoking Status: Never smoker alcohol intake: never substance use type: does not use ROS Constitutional Constitutional: Reports chills, fever(s) and malaise; Denies anorexia, fatigue or weakness Cardiovascular Cardiovascular: Denies chest pain, edema, palpitations or syncope Respiratory/Chest Respiratory/Chest: Denies cough, shortness of breath at rest, shortness of breath with exertion or wheezing Gastrointestinal Gastrointestinal: Reports constipation; Denies abdominal pain, diarrhea, nausea or vomiting Genitourinary Genitourinary: Reports other Details: Change in urine consistency in catheter Musculoskeletal Musculoskeletal: Denies back pain, extremity pain or joint pain Integumentary Integumentary: Denies dry skin Neurologic Neurologic: Denies abnormal gait, abnormal speech, confusion or dizziness Psychiatric Psychiatric: Denies anxiety or depression Endocrine Endocrinology: Denies change in body appearance Hematologic/Lymphatic Hematologic/Lymphatic: Denies anemia Vital Signs Vital Signs Vital Signs: 08/10/22 21:33 08/10/22 21:59 08/10/22 22:39 Temperature 100.0 F H 99.4 F H Temperature Source Temporal Temporal Pulse Rate 97 93 Respiratory Rate 16 17 Respiratory Effort Normal Non-Labored Respiratory Pattern Normal Blood Pressure 152/89 H 141/94 H Blood Pressure Mean 110 109 Pulse Ox 98 94 Oxygen Delivery Method Room Air Room Air 08/10/22 23:00 08/10/22 23:33 Temperature 99.4 F H 99.3 F H Temperature Source Temporal Temporal Pulse Rate 91 89 Respiratory Rate 17 17 Respiratory Effort Respiratory Pattern Blood Pressure 146/86 H 131/87 H Blood Pressure Mean 106 101 Pulse Ox 94 94 Oxygen Delivery Method Room Air Room Air Weight Weight: 119 lb Body Mass Index (BMI) 21.0 Physical Exam Const alert and oriented x3 General Appearance: cooperative HEENT normocephalic, head/scalp atraumatic and moist oral mucous membranes Eyes conjunctivae normal and no scleral icterus Neck no lymphadenopathy and supple General: trachea midline Resp normal respiratory effort, normal air movement and clear to auscultation bilaterally Cardio regular rate, regular rhythm, S1 normal heart sound, S2 normal heart sound and peripheral pulses 2+ throughout GI normal to inspection, nondistended, normoactive bowel sounds, soft to palpation and non-tender Extremity normal capillary refill and no clubbing, cyanosis or edema Skin General Skin Exam: no breakdown Lesions: no lesions Rashes: no rashes Neuro no focal motor deficits and no sensory deficits noted Psych thought process normal, cooperative and affect normal Results Lab / Micro Data Result Diagrams: 08/10/22 22:06 08/10/22 22:06 Labs: Laboratory Results - last 24 hr 08/10/22 22:06: WBC 11.4 H, RBC 4.27 L, Hgb 12.5 L, Hct 35.6 L, MCV 83.4, MCH 29.3, MCHC 35.1, RDW Std Deviation 38.2, RDW Coeff of Frieda 12.6, Plt Count 376, MPV 9.9, Immature Gran % (Auto) 0.400, Neut % (Auto) 67.6, Lymph % (Auto) 13.3 L, [place] % (Auto) 18.4 H, Eos % (Auto) 0.1, Baso % (Auto) 0.2, Absolute Neuts (auto) 7.7, Absolute Lymphs (auto) 1.52, Nucleated RBC % 0, Differential Comment SEE COMMENT, Diff Path Review March, Platelet Estimate ADEQUATE, RBC Morphology N CHROM 08/10/22 22:06: Sodium 119 L*, Potassium 3.8, Chloride 83 L, Carbon Dioxide 27.0, Anion Gap 9, BUN 6 L, Creatinine 0.68 L, Estim Creat Clear Calc 94.81, Est GFR (MDRD) Af Amer 156, Est GFR (MDRD) Non-Af 129, BUN/Creatinine Ratio 8.8 L, Glucose 115 H, Calcium 8.5, Total Bilirubin 0.50, Direct Bilirubin 0.16, AST 24, ALT 25, Alkaline Phosphatase 62, Total Protein 7.2, Albumin 2.9 L, Globulin 4.3 H 08/10/22 22:06: Lactic Acid 1.1 08/10/22 22:25: Urine Color Straw, Urine Clarity Sl. Cloudy, Urine pH 7.0, Ur Specific [place] 1.010, Urine Protein 30 H, Urine Glucose (UA) Normal, Urine Ketones 15 H, Urine Occult Blood 150 H, Urine Nitrite Positive H, Urine Bilirubin Negative, Urine Urobilinogen Normal, Ur Leukocyte Esterase 500 H, Urine RBC 0-5 SEEN, Urine WBC 25-50 SEEN, Ur Squamous Epith Cells 0 SEEN, Urine Bacteria 1+, Urine Mucus 0 SEEN Micro: Microbiology 08/10/22 22:17 Nasal Secretion SARS-CoV-2 & FLU Antigen (Rapid) - Final Radiology Impression Chest X-Ray 08/10/22 22:44 IMPRESSION: No acute abnormal cardiopulmonary finding. Electronically Signed: Brock Alberto MD at 23:02 EDT , Assessment & Plan Assessment/Plan (1) Hyponatremia: (2) UTI (urinary tract infection): PLAN: Plan 1. Urinary tract infection -Sepsis ruled out -Admit to PCU -Blood and urine cultures pending -Maintain Bowman catheter, urinary catheter change in ER upon arrival -CBC, magnesium, phosphorus, TSH in a.m. -PT and OT to eval and treat -Intake and output -Continue Rocephin, patient received first dose in the ER 2. Hyponatremia -BMP every 4 hours, initial sodium 119 -Normal saline 150 mL/h ordered -Urine sodium, urine creatinine, urine osmolality, serum osmolality ordered -Patient's sister reports that she has been giving him large amounts of warm water to help with constipation. 3. Chronic constipation -Continue Linzess and as needed mineral oil and Dulcolax 4. Spasms -Continue scheduled baclofen 5. History of seizures -Patient currently not on medication regimen -Seizure precautions ordered DVT prophylaxis-subcu Lovenox This patient was seen by Beth Almazan NP-C under the supervision of Dr. Hinkle. 30 minutes spent in clinical coordination of patient's plan of care. Documented by User: Dr. Sidney Hinkle MD 08/11/22 00:12 HPI - General General Date of Admission: 08/10/22 [facility] Medical History Chronic indwelling Bowman catheter Gastroparesis History of urinary retention Hydrocephalus Hypertension Ileus Kidney stones Seizures Home Medications linaclotide 72 mcg capsule (Linzess) 145 mcg PO DAILY constipation 07/31/21 [History Last Taken 07/20/22] bisacodyl 10 mg rectal suppository 10 mg MI DAILY constipation 04/13/22 [History Last Taken 07/20/22] mineral oil 30 ml PO DAILY PRN Constipation 04/13/22 [History Last Taken 07/18/22] baclofen 5 mg tablet 5 mg PO TID spasms 07/21/22 [History Last Taken 07/20/22] Allergy/AdvReac Type Severity Reaction Status Date / Time Iodinated Contrast Media Allergy Anaphylaxis Verified 08/10/22 21:39 [Iodinated Contrast Media - IV Dye] nitrofurantoin AdvReac Upset Verified 08/10/22 21:39 Stomach Family History Father Heart disease Kidney stones Prostate disease Brother Kidney stones Other Cancer Peptic ulcer disease Surgical History S/P release of urethral stricture 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 I agree with assessment and plan by Beth Almazan NP-C JIAN ALTAMIRANO, is a 55 M with a significant history of hydrocephalus status post AUTO PAINTER shunts who presents emergency department with a fever for the past 4 days. On the day of presentation his fever increased to 103 Fahrenheit so patient was brought to the hospital. Of note patient sister to call patient at home. Reportedly patient has chronic constipation and has to be on a daily and routine suppository. Patient Bowman catheter was changed at the ED Physical exam: General: Well-nourished, well-developed. Head: Normocephalic, atraumatic Eyes: Vision is grossly intact. EOMI ENT, no trauma, moist mucous membranes, no rhinorrhea CVS: Regular rate and rhythm. S1-S2 present. No murmur, gallop or rub. Respiratory : clear to auscultation bilaterally, chest wall nontender, no wheezing Abdomen: Soft, nontender, nondistended, normal bowel sounds, no masses : Bowman catheter in place Extremities: Unable to raise bilateral legs. Weak strength in bilateral upper extremity, right worse than left. Skin: Normal color, no trauma, abrasions Neuro: Alert, oriented Psychiatry: Normal mood. Normal affect. Not depressed. Not anxious. Assessment and plan UTI secondary to chronic Bowman Chest x-ray showed no acute cardiopulmonary process. Chest x-ray was visualized and independent interpreted and I agree radiology interpretation. Urinalysis was abnormal. Bowman catheter change at the emergency department. Received ceftriaxone emergency department and continued. Hyponatremia Sodium of 119 at emergency department. Admit to progressive care unit on telemetry. Trend BMP. TSH, urine sodium, urine osmolality, uric acid ordered. Gentle normal saline IV hydration. Chronic constipation Reportedly last time patient had a good bowel movement was a day before presentation. On the day of presentation patient had only a smear of stool Home regimen continued. DVT prophylaxis: SCDs ordered. 35 minutes was spent seeing patient and reviewing charts. Visit Charges Inpatient E&M: 32014 Init Hosp L3
[2022-08-10 23:58] VITALS: BP 134/81; PULSE 89; RESP 17; TEMP 37.3; O2SAT 94
[2022-08-11] VITALS (14 sets, daily range): BP systolic 135–151; BP diastolic 78–89; PULSE 81–106; RESP 16–18; TEMP 36.8–38.8; O2SAT 94–99; BMI 20.5
[2022-08-11 00:28] LABS: Osmolality, Urine 49 mOsm/KG
[2022-08-11 00:32] LABS: Osmolality, Serum 239 mOsm/KG (275-295)
[2022-08-11 00:38] LABS: Creatinine, Urine (random) < 13.00 mg/dL (NO RANGE EST.); Urine Sodium 23 mmol/L (Not Establ.)
[2022-08-11] MEDS: 0.9% Normal Saline 1,000 ML 150 ML IV ×2 (00:52→08:59)
[2022-08-11 05:32] LABS: BUN 5 mg/dL (7-18); BUN/Creat Ratio 9.1 RATIO (10-20); Calcium,Total 7.8 mg/dL (8.5-10.1); Creatinine, Serum 0.55 mg/dL (0.70-1.30); EST Glomerular Filtration Rate 165 mL/min (>60); Est Glom Filt Rate - Afr Amer 200 mL/min (>60); Estimated Creatinine Clearance 117.92 ml/min; Glucose 118 mg/dL (74-106); Sodium Level 131 mmol/L (136-145)
[2022-08-11 05:33] LABS: Anion Gap 7 (5-15); Chloride 98 mmol/L (98-107); Potassium 3.3 mmol/L (3.5-5.1)
[2022-08-11 05:40] LABS: Absolute Lymphocyte Count 1.01 X10^3/uL (0.83-4.51); Basophil# 0.02 X10^3/uL; Basophil% 0.2 % (0-1); Eosinophil# 0.02 X10^3/uL; Eosinophils% 0.2 % (0-5); Hematocrit 33.6 % (40-54); Hemoglobin 11.6 g/dL (13.0-16.5); Lymphocyte # 1.01 X10^3/ul (0.83-4.51); Lymphocyte % 11.1 % (19-41); Mean Corp Hgb Conc 34.5 g/dL (32-36); Mean Corpuscular Hgb 29.1 pg (27.0-32.0); Mean Corpuscular Volume 84.2 fL (80-94); Mean Platelet Vol. 9.4 fl (6.2-12.0); Monocyte# 2.09 X10^3/uL; Monocyte% 22.9 % (0-10); NRBC Flagged by Analyzer 0 % (0-5); Neutrophil # 5.95 X10^3/uL (2.7-7.7); Neutrophil % 65.3 % (47-70); POSITIVE DIFFERENTIAL YES; Platelet Count 337 K/mm3 (150-450); RBC Distribution Width CV 12.6 % (11.6-14.6); RBC Distribution Width SD 38.4 fl (35.1-43.9); Red Blood Count 3.99 M/mm3 (4.6-6.2); White Blood Count 9.1 K/mm3 (4.4-11.0)
[2022-08-11] MEDS: Baclofen 10 MG Tablet 5 MG PO ×3 (05:46→20:44)
[2022-08-11 06:01] LABS: Differential Indicated SCAN CRITERIA MET
[2022-08-11 06:21] LABS: Phosphorus 3.4 mg/dL (2.5-4.9)
[2022-08-11 06:25] LABS: Anion Gap 8 (5-15); BUN 4 mg/dL (7-18); BUN/Creat Ratio 7.1 RATIO (10-20); Calcium,Total 8.1 mg/dL (8.5-10.1); Chloride 99 mmol/L (98-107); Creatinine, Serum 0.57 mg/dL (0.70-1.30); EST Glomerular Filtration Rate 159 mL/min (>60); Est Glom Filt Rate - Afr Amer 192 mL/min (>60); Estimated Creatinine Clearance 113.79 ml/min; Glucose 113 mg/dL (74-106); Magnesium 2.1 mg/dL (1.6-2.6); Potassium 3.8 mmol/L (3.5-5.1); Sodium Level 131 mmol/L (136-145); Thyroid Stim Hormone (TSH) 0.68 uIU/mL (0.358-3.74)
[2022-08-11 06:49] LABS: Differential Comment SCANNED
[2022-08-11] MEDS: 0.9% Saline Lock 10 ML Syringe IV (08:57)
[2022-08-11] MEDS: Bisacodyl 10 MG Suppository RC (08:57)
[2022-08-11] MEDS: Ceftriaxone 1 GM/50 ML BAG IV (09:04)
[2022-08-11] MEDS: Acetaminophen 325 MG Tablet 650 MG PO ×3 (09:12→20:46)
[2022-08-11] MEDS: Nystatin Powder 15gm Bottle 1 APPLIC TOPICAL (09:36)
[2022-08-11 11:00] LABS: Anion Gap 9 (5-15); BUN 5 mg/dL (7-18); BUN/Creat Ratio 6.3 RATIO (10-20); Calcium,Total 8.3 mg/dL (8.5-10.1); Chloride 98 mmol/L (98-107); Creatinine, Serum 0.79 mg/dL (0.70-1.30); EST Glomerular Filtration Rate 108 mL/min (>60); Est Glom Filt Rate - Afr Amer 131 mL/min (>60); Glucose 126 mg/dL (74-106); Potassium 3.5 mmol/L (3.5-5.1); Sodium Level 131 mmol/L (136-145)
--- NOTE | 2022-08-11 11:50 | PN.HOSP_ITS ---
Documented by User: Blaire Hunter NP, SURGICAL SERVICES MANAGER-C 08/11/22 11:57 Subjective Subjective Patient seen and examined. Sister at bedside, helping with care. Patient reports fever this morning. Reports recent bowel obstruction and had suppository this morning, states he feels like he needs to have a BM. Denies other symptoms or complaints Objective Data Objective Data Vital Signs: Vital Signs Temp Pulse Resp BP Pulse Ox O2 Del Method 101.9 F H 106 H 16 141/82 H 94 Room Air 08/11/22 08:50 08/11/22 08:50 08/11/22 08:50 08/11/22 08:50 08/11/22 08:50 08/11/22 08:50 Oxygen Delivery Method Room Air Weight: 119 lb 11.376 oz Body Mass Index (BMI) 20.5 Intake & Output: Intake and Output for Last 24 Hours 08/09/22 08/10/22 08/11/22 23:59 23:59 23:59 Intake Total 157.5 / 157.5 1807.5 / 1807.5 Output Total 2500 / 2500 Balance 157.5 / 157.5 -692.5 / -692.5 Lab / Micro Data Result Diagrams: 08/11/22 05:32 08/11/22 14:06 Labs: Laboratory Results - last 24 hr 08/10/22 00:14: Urine Osmolality 49 L, Ur Random Sodium 23, Urine Creatinine < 13.00 08/10/22 22:06: WBC 11.4 H, RBC 4.27 L, Hgb 12.5 L, Hct 35.6 L, MCV 83.4, MCH 29.3, MCHC 35.1, RDW Std Deviation 38.2, RDW Coeff of Frieda 12.6, Plt Count 376, MPV 9.9, Immature Gran % (Auto) 0.400, Neut % (Auto) 67.6, Lymph % (Auto) 13.3 L , [place] % (Auto) 18.4 H, Eos % (Auto) 0.1, Baso % (Auto) 0.2, Absolute Neuts (auto) 7.7, Absolute Lymphs (auto) 1.52, Nucleated RBC % 0, Differential Comment SEE COMMENT, Diff Path Review May foll, Platelet Estimate ADEQUATE, RBC Morphology N CHROM 08/10/22 22:06: Sodium 119 L*, Potassium 3.8, Chloride 83 L, Carbon Dioxide 27.0, Anion Gap 9, BUN 6 L, Creatinine 0.68 L, Estim Creat Clear Calc 94.81, Est GFR (MDRD) Af Amer 156, Est GFR (MDRD) Non-Af 129, BUN/Creatinine Ratio 8.8 L, Glucose 115 H, Calcium 8.5, Total Bilirubin 0.50, Direct Bilirubin 0.16, AST 24, ALT 25, Alkaline Phosphatase 62, Total Protein 7.2, Albumin 2.9 L, Globulin 4.3 H 08/10/22 22:06: Lactic Acid 1.1 08/10/22 22:06: Serum Osmolality 239 L 08/10/22 22:25: Urine Color Straw, Urine Clarity Sl. Cloudy, Urine pH 7.0, Ur Specific [place] 1.010, Urine Protein 30 H, Urine Glucose (UA) Normal, Urine Ketones 15 H, Urine Occult Blood 150 H, Urine Nitrite Positive H, Urine Bilirubin Negative, Urine Urobilinogen Normal, Ur Leukocyte Esterase 500 H, Urine RBC 0-5 SEEN, Urine WBC 25-50 SEEN, Ur Squamous Epith Cells 0 SEEN, Urine Bacteria 1+, Urine Mucus 0 SEEN 08/11/22 02:13: Sodium 131 L, Potassium 3.3 L, Chloride 98, Carbon Dioxide 26.0, Anion Gap 7, BUN 5 L, Creatinine 0.55 L, Estim Creat Clear Calc 117.92, Est GFR (MDRD) Af Amer 200, Est GFR (MDRD) Non-Af 165, BUN/Creatinine Ratio 9.1 L, Glucose 118 H, Calcium 7.8 L 08/11/22 05:32: WBC 9.1, RBC 3.99 L, Hgb 11.6 L, Hct 33.6 L, MCV 84.2, MCH 29.1, MCHC 34.5, RDW Std Deviation 38.4, RDW Coeff of Frieda 12.6, Plt Count 337, MPV 9.4, Immature Gran % (Auto) 0.300, Neut % (Auto) 65.3, Lymph % (Auto) 11.1 L, [place] % (Auto) 22.9 H, Eos % (Auto) 0.2, Baso % (Auto) 0.2, Absolute Neuts (auto) 6.0, Absolute Lymphs (auto) 1.01, Nucleated RBC % 0, Differential Comment SCANNED 08/11/22 05:32: Sodium 131 L, Potassium 3.8, Chloride 99, Carbon Dioxide 24.0, Anion Gap 8, BUN 4 L, Creatinine 0.57 L, Estim Creat Clear Calc 113.79, Est GFR (MDRD) Af Amer 192, Est GFR (MDRD) Non-Af 159, BUN/Creatinine Ratio 7.1 L, Glucose 113 H, Calcium 8.1 L, Magnesium 2.1, TSH 0.68 08/11/22 05:32: Phosphorus 3.4 08/11/22 10:08: Sodium 131 L, Potassium 3.5, Chloride 98, Carbon Dioxide 24.0, Anion Gap 9, BUN 5 L, Creatinine 0.79, Estim Creat Clear Calc 82.10, Est GFR (MDRD) Af Amer 131, Est GFR (MDRD) Non-Af 108, BUN/Creatinine Ratio 6.3 L, Glucose 126 H, Calcium 8.3 L Micro: Microbiology 08/10/22 22:25 Urine Catheter - Catheter Urine Culture - Preliminary GNR lactose receiving associate 08/10/22 22:17 Nasal Secretion SARS-CoV-2 & FLU Antigen (Rapid) - Final Radiography Diagnostic Testing: Radiology Impression Chest X-Ray 08/10/22 22:44 IMPRESSION: No acute abnormal cardiopulmonary finding. Electronically Signed: Brock Alberto MD at 23:02 EDT , Physical Exam Const alert and oriented x3 Constitutional Narrative: Slow to respond. Nutritional Appearance: cachectic HEENT normocephalic Mouth: dry mucous membranes Eyes PERRL, EOMs intact bilaterally and conjunctivae normal Neck no lymphadenopathy Resp clear to auscultation bilaterally Auscultation: diminished lung sounds Cardio regular rate, regular rhythm and no murmurs Peripheral Pulses: pulses 2+ throughout GI normal to inspection, nondistended, normoactive bowel sounds, non-tender and non-distended Extremity normal to inspection Extremity Narrative: Wheelchair-bound, muscle wasting Skin no rashes or lesions noted Lesions: no lesions Rashes: no rashes Trauma: no lacerations or abrasions Neuro CN's II-XII intact bilaterally, no focal motor deficits, no sensory deficits noted and deep tendon reflexes 2+ bilaterally Psych mental status grossly normal and affect normal Assessment & Plan Assessment/Plan (1) UTI (urinary tract infection): PLAN: Plan 1. Acute complicated UTI with history of chronic indwelling Bowman catheter- history of multiple bladder calculi. IV Rocephin pending urine culture. Previous cultures grew E. coli and Proteus. Blood culture pending. 2. Acute on chronic hyponatremia-now at baseline following IV fluids. Likely hypovolemic. Trend BMP. 3. History of recurrent small bowel obstruction/gastroparesis-currently stable. Continue aggressive bowel regimen. 4. Chronic debility/eeoerregzf-nlccs-hmjcyzroo to hydrocephalus status post POUCH MAKER shunt. PT/OT. Sister is water supply engineer. DVT prophylaxis- Lovenox sc This patient was seen by Blaire Hunter NP-C under the supervision of Dr. Mercer. Time spent examining patient, reviewing data and subsequent management of care: 16 minutes Documented by User: Dr. Geo Mercer DO 08/11/22 19:09 Objective Data Lab / Micro Data Result Diagrams: 08/11/22 05:32 08/11/22 14:06 Assessment & Plan Assessment/Plan (1) UTI (urinary tract infection): Charges/Coding Addendum Addendum: Patient was seen and examined independently of Blaire Hunter daily, he was admitted yesterday for a severe urinary tract infection and hyponatremia. Patient has a history in the past of hydrocephalus and has some physical impairment but according to his sister who was in the room at the time my examination today, patient's cognitive skills are not impaired. Patient appears to be resting at the time of my visit and I did not awaken the patient, he does not appear to be in any distress at this time. On examination he appeared somnolent and in no distress. Vital signs as doc umented. Skin warm and dry and without overt rashes. Neck without JVD, neck was supple, trachea midline, thyroid was normal. Lungs clear bilaterally, normal air movement was noted. Heart exam notable for regular rhythm, normal sounds and absence of murmurs, rubs or gallops. Abdomen unremarkable and without evidence of organomegaly, masses, or abdominal aortic enlargement. Bowel sounds are present, abdomen is not distended. Extremities nonedematous, no cyanosis was noted, no clubbing was noted. Neuro: Cranial nerves II through XII are grossly intact, no focal motor deficits were noted Psych: Patient is somnolent, he appears in no distress Impression: #1 urinary tract infection-urine is growing out a gram-negative lactose receiving associate, patient has a chronic Bowman in, patient's white blood cell count today was normal. Patient will remain on ceftriaxone at this time IV #2 hyponatremia-patient's sodium today is 133, his sodium appeared low at the time of admission at 119. I do not know if this was an accurate reading as the patient's sodium was repeated several hours later and it was 131. BMP will be repeated tomorrow morning as will a CBC #3 chronic constipation-patient is on Linzess of mineral oil as well as Dulcolax as needed I have reviewed Blaireconstance Hunter's progress note including her medical assessment and plan of care with the above additions endorse it. Total clinical time spent by myself addressing the patient's medical issues, reviewing the data, and collaborating with the patient's care team: 35 minutes Visit Charges Inpatient E&M: 92532 Subs Hosp L2
[2022-08-11 12:14] LABS: Pathologist Review Reviewed
[2022-08-11 12:42] LABS: Hemoglobin A1c 5.8 % (3.8-5.6)
[2022-08-11] MEDS: Zinc Oxide 30gm Tube 1 APPLIC TOPICAL (13:23)
[2022-08-11 14:40] LABS: Anion Gap 10 (5-15); BUN 6 mg/dL (7-18); BUN/Creat Ratio 7.3 RATIO (10-20); Calcium,Total 8.2 mg/dL (8.5-10.1); Chloride 98 mmol/L (98-107); Creatinine, Serum 0.83 mg/dL (0.70-1.30); EST Glomerular Filtration Rate 103 mL/min (>60); Est Glom Filt Rate - Afr Amer 124 mL/min (>60); Estimated Creatinine Clearance 78.14 ml/min; Glucose 120 mg/dL (74-106); Potassium 3.6 mmol/L (3.5-5.1); Sodium Level 133 mmol/L (136-145)
--- NOTE | 2022-08-11 15:00 | CASEMGMT ---
Readmission chart review: 07/21-07/25/22 Ileus 08/10/22-current UTI, hyponatremia Pt presented to [facility] ED for decreased urinary output, fever, nausea and was admitted to [facility] for Ileus. Pt's two sisters care for him and trade out every couple weeks d/t hx hydrocephalus w/ FLUE LINING DIPPER shunt/chronic debility. Pt with chronic hannon from home. Na+ on admission was 130 but up to 143 at discharge. Pt was sent home with [facility] for SN, PT/OT, SW. Pt did not have f/u scheduled with PCP at discharge. Pt returned to [facility] ED on 08/10/22 for fever and concern for UTI. Pt still with chronic hannon. Pt does have a urologist. Pt admitted to PCU for UTI, hyponatremia. Pt's Na+ on this admission was 119 and is now up to 133. MAURA order placed as pt is still active with [facility]. CM to follow for any further discharge planning/needs. SStcam TREJO CM
--- NOTE | 2022-08-11 16:24 | CHAPLAIN ---
Type of Pastoral Visit _x__ Initial Visit ___ Follow-up Visit ___ On-call Visit ___ General Patient Visit ___ Spiritual Assessment ___ Family Conference ___ Bereavement ___ Rapid Response ___ Code Blue ___ Other (describe below) Pastoral Care Referral From _x__ Patient ___ Family ___ Nurse ___ Physician ___ Belt Cutter ___ Paleologist ___ Other (describe below) Sacrament/Intervention _x__ Active listening ___ Anointing ___ Orthodoxy ___ Bereavement ___ Communion ___ Liset exploration ___ _x__ Life review _x__ Prayer ___ Reconciliation ___ Sacrament of Sick _x__ Supportive presence ___ Wedding ___ Other (describe below) Pastoral Comments patient has been seen before in previous admissions; sister of patient is also with him at this time; pt gives details about his new health issues; sister also gives her report; pt talks about some disappointment when he is not able to do his work for [employer]; conversation about his interest in baseball and what he can do to occupy himself; prayer and prsence welcomed
[2022-08-11] MEDS: 0.9% Normal Saline 1,000 ML 75 ML IV (16:31)
[2022-08-12] VITALS (11 sets, daily range): BP systolic 125–132; BP diastolic 62–84; PULSE 80–95; RESP 18–20; TEMP 36.5–38.3; O2SAT 97–98
[2022-08-12] MEDS: 0.9% Normal Saline 1,000 ML 75 ML IV ×2 (04:18→17:51)
[2022-08-12] MEDS: Baclofen 10 MG Tablet 5 MG PO ×3 (06:21→22:06)
[2022-08-12] MEDS: Linacolotide 145 MCG CAPSULE PO (06:22)
[2022-08-12 06:47] LABS: Absolute Neutrophil Count 4.8 X10^3/uL (2.0-7.7); Basophil# 0.04 X10^3/uL; Basophil% 0.5 % (0-1); Eosinophil# 0.02 X10^3/uL; Eosinophils% 0.2 % (0-5); Hematocrit 30.4 % (40-54); Hemoglobin 10.6 g/dL (13.0-16.5); Lymphocyte % 19.2 % (19-41); Mean Corp Hgb Conc 34.9 g/dL (32-36); Mean Corpuscular Hgb 29.4 pg (27.0-32.0); Mean Corpuscular Volume 84.4 fL (80-94); Mean Platelet Vol. 9.7 fl (6.2-12.0); Monocyte# 1.88 X10^3/uL; Monocyte% 22.6 % (0-10); NRBC Flagged by Analyzer 0 % (0-5); Neutrophil # 4.77 X10^3/uL (2.7-7.7); Neutrophil % 57.3 % (47-70); POSITIVE DIFFERENTIAL YES; Platelet Count 310 K/mm3 (150-450); RBC Distribution Width CV 12.9 % (11.6-14.6); RBC Distribution Width SD 39.8 fl (35.1-43.9); White Blood Count 8.3 K/mm3 (4.4-11.0)
[2022-08-12 06:49] LABS: Differential Indicated SCAN CRITERIA MET
[2022-08-12 07:06] LABS: Anion Gap 7 (5-15); BUN 5 mg/dL (7-18); BUN/Creat Ratio 8.8 RATIO (10-20); Chloride 101 mmol/L (98-107); Creatinine, Serum 0.57 mg/dL (0.70-1.30); EST Glomerular Filtration Rate 159 mL/min (>60); Est Glom Filt Rate - Afr Amer 193 mL/min (>60); Estimated Creatinine Clearance 113.79 ml/min; Glucose 110 mg/dL (74-106); Potassium 3.4 mmol/L (3.5-5.1); Sodium Level 133 mmol/L (136-145)
[2022-08-12 07:11] LABS: Differential Comment SCANNED
[2022-08-12] MEDS: Bisacodyl 10 MG Suppository RC (09:04)
[2022-08-12] MEDS: Enoxaparin 40 MG/0.4 ML Syringe SC (09:08)
[2022-08-12] MEDS: Nystatin Powder 15gm Bottle 1 APPLIC TOPICAL ×2 (09:09→22:03)
--- NOTE | 2022-08-12 09:32 | CASEMGMT ---
Social Work SW informed by LILY in Home Health that pt would like to complete POA papers, wants one sister to be POA but pt's other sister wants to be POA. SW called [facility]([phone]), pt has a rn field case manager Sherri Jean. SW spoke w/Lisandra Jean in regard to POA. Lisandra has just started working with this pt and family, and in fact will be scheduling a meeting in August with pt and family. SW asked if pt has the capacity to complete POA paperwork. Lisandra states she does not know, she actually has not even met the pt yet. We spoke about her addressing this w/pt and family. Sherri states she will address this w/pt and family at their August meeting. SW let the SW in Home Health know. MIKE Rose
--- NOTE | 2022-08-12 17:45 | PN.HOSP_ITS ---
Subjective Subjective Patient was seen and examined today, he appears more alert today and is talkative, I talked with his sister who was in the room at the time of my examination. Patient's urine culture resulted as ESBL E. coli, I changed his antibiotic coverage today from Rocephin to meropenem, I talked with infectious diseases today and they will see the patient in consultation. Objective Data Objective Data Vital Signs: Vital Signs Temp Pulse Resp BP Pulse Ox O2 Del Method 98.6 F 95 18 128/67 H 98 Room Air 08/12/22 16:00 08/12/22 16:00 08/12/22 16:00 08/12/22 16:00 08/12/22 16:00 08/12/22 16:00 Oxygen Delivery Method Room Air Weight: 54.3 kg Body Mass Index (BMI) 20.5 Intake & Output: Intake and Output for Last 24 Hours 08/10/22 08/11/22 08/12/22 23:59 23:59 23:59 Intake Total 157.5 / 157.5 3342.5 / 3342.5 2282.50 / 2282.50 Output Total 4125 / 4125 1900 / 1900 Balance 157.5 / 157.5 -782.5 / -782.5 382.50 / 382.50 Lab / Micro Data Result Diagrams: 08/12/22 06:14 08/12/22 06:14 Labs: Laboratory Results - last 24 hr 08/12/22 06:14: WBC 8.3, RBC 3.60 L, Hgb 10.6 L, Hct 30.4 L, MCV 84.4, MCH 29.4, MCHC 34.9, RDW Std Deviation 39.8, RDW Coeff of Frieda 12.9, Plt Count 310, MPV 9.7, Immature Gran % (Auto) 0.200, Neut % (Auto) 57.3, Lymph % (Auto) 19.2, [place] % (Auto) 22.6 H, Eos % (Auto) 0.2, Baso % (Auto) 0.5, Absolute Neuts (auto) 4.8, Absolute Lymphs (auto) 1.60, Nucleated RBC % 0, Differential Comment SCANNED 08/12/22 06:14: Sodium 133 L, Potassium 3.4 L, Chloride 101, Carbon Dioxide 25.0, Anion Gap 7, BUN 5 L, Creatinine 0.57 L, Estim Creat Clear Calc 113.79, Est GFR (MDRD) Af Amer 193, Est GFR (MDRD) Non-Af 159, BUN/Creatinine Ratio 8.8 L, Glucose 110 H, Calcium 8.0 L Micro: Microbiology 08/10/22 22:25 Urine Catheter - Catheter Urine Culture - Preliminary Escherichia coli 08/10/22 22:17 Nasal Secretion SARS-CoV-2 & FLU Antigen (Rapid) - Final Physical Exam Const alert, oriented x3 and no apparent distress Constitutional Narrative: Patient appears older than his stated age General Appearance: cooperative Orientation / Consciousness: awake, oriented to person, oriented to place and oriented to time HEENT normocephalic, head/scalp atraumatic and moist oral mucous membranes Eyes PERRL, EOMs intact bilaterally and conjunctivae normal Neck supple, no JVD, thyroid normal and no carotid bruits General: trachea midline Resp normal respiratory effort and clear to auscultation bilaterally Auscultation: Negative for rales, rhonchi or wheezes Cardio regular rate, regular rhythm, no murmurs, no rub and no gallops GI normal to inspection, nondistended, normoactive bowel sounds, soft to palpation, non-tender and non-distended Extremity Extremity Narrative: Patient exhibits muscle atrophy over his legs and arms Skin no rashes or lesions noted General Skin Exam: no breakdown Neuro oriented x3 and CN's II-XII intact bilaterally Sensorium / Orientation: awake and alert Speech: speech normal Psych affect normal Assessment & Plan Assessment/Plan (1) UTI (urinary tract infection): PLAN: Plan 1. Acute cystitis with E. coli which is ESBL-continue meropenem at this time, ID will see the patient tomorrow #2 hyponatremia-BMP will be rechecked tomorrow, continue normal saline IV #3 chronic constipation-patient is on Linzess and mineral oil as well as Dulcolax Charges/Coding Visit Charges Inpatient E&M: 67012 Subs Hosp L2
[2022-08-12] MEDS: Potassium Chloride Oral Soln 20 MEQ/15 ML UDC PO (17:51)
[2022-08-12] MEDS: Acetaminophen 325 MG Tablet 650 MG PO (20:03)
[2022-08-13] VITALS (8 sets, daily range): BP systolic 116–154; BP diastolic 64–88; PULSE 76–97; RESP 16–20; TEMP 36.5–37.3; O2SAT 94–98
[2022-08-13] MEDS: Baclofen 10 MG Tablet 5 MG PO ×3 (05:48→22:38)
[2022-08-13] MEDS: KCL 40mEq in 0.9% NS 40 MEQ/1,000 ML IV.SOLN 75 MEQ IV ×2 (05:48→19:19)
[2022-08-13] MEDS: Linacolotide 145 MCG CAPSULE PO (05:50)
[2022-08-13 05:55] LABS: Absolute Lymphocyte Count 1.74 X10^3/uL (0.83-4.51); Absolute Neutrophil Count 2.9 X10^3/uL (2.0-7.7); Basophil# 0.02 X10^3/uL; Basophil% 0.3 % (0-1); Eosinophil# 0.11 X10^3/uL; Eosinophils% 1.8 % (0-5); Hematocrit 31.5 % (40-54); Hemoglobin 10.7 g/dL (13.0-16.5); Lymphocyte # 1.74 X10^3/ul (0.83-4.51); Lymphocyte % 28.2 % (19-41); Mean Corpuscular Hgb 28.9 pg (27.0-32.0); Mean Corpuscular Volume 85.1 fL (80-94); Mean Platelet Vol. 9.6 fl (6.2-12.0); Monocyte# 1.37 X10^3/uL; Monocyte% 22.2 % (0-10); NRBC Flagged by Analyzer 0 % (0-5); Neutrophil % 47.2 % (47-70); POSITIVE MORPHOLOGY YES; Platelet Count 308 K/mm3 (150-450); RBC Distribution Width CV 12.9 % (11.6-14.6); RBC Distribution Width SD 39.9 fl (35.1-43.9); White Blood Count 6.2 K/mm3 (4.4-11.0)
[2022-08-13 06:11] LABS: Differential Indicated SCAN CRITERIA MET
[2022-08-13 06:25] LABS: Atypical Lymphocyte RARE %; Differential Comment SCANNED
[2022-08-13 06:34] LABS: Anion Gap 9 (5-15); BUN 6 mg/dL (7-18); BUN/Creat Ratio 12.1 RATIO (10-20); Calcium,Total 8.1 mg/dL (8.5-10.1); Chloride 101 mmol/L (98-107); Creatinine, Serum 0.49 mg/dL (0.70-1.30); EST Glomerular Filtration Rate 186 mL/min (>60); Est Glom Filt Rate - Afr Amer 225 mL/min (>60); Estimated Creatinine Clearance 132.36 ml/min; Glucose 111 mg/dL (74-106); Potassium 3.6 mmol/L (3.5-5.1); Sodium Level 135 mmol/L (136-145)
[2022-08-13] MEDS: Nystatin Powder 15gm Bottle 1 APPLIC TOPICAL ×2 (09:23→22:39)
[2022-08-13] MEDS: Bisacodyl 10 MG Suppository RC (09:28)
[2022-08-13] MEDS: Enoxaparin 40 MG/0.4 ML Syringe SC (09:28)
--- NOTE | 2022-08-13 12:41 | PCM.CONS.GEN ---
Assessment & Plan Assessment/Plan (1) UTI (urinary tract infection): PLAN: complicated uti with chronic hannon and esbl ecoli infection - improving with meropenem. Will continue while inpatient, plan on home with one week po bactrim DS bid which he has tolerated in past without issue. Will follow, thank you, d/w Dr. Mercer. HPI Consult Data Date of Consult: 08/13/22 HPI Narrative Reason for Consultation: esbl infection HPI Narrative: JIAN ALTAMIRANO, is a 56 M with hydrocephalus at , chronic hannon. His sisters take care of him. On 08/10 came to ED with one day h/o fever. Had recently been on 1 week cefdinir for uti. Admitted on ceftriaxone, changed to edwardo once ucx showed esbl ecoli. Now improved, temps better. Denies abd pain or back pain. Full ROS performed and neg except as noted above. [facility] Medical History Chronic indwelling Hannon catheter Gastroparesis History of urinary retention Hydrocephalus Hypertension Ileus Kidney stones Seizures Home Medications linaclotide 72 mcg capsule (Linzess) 145 mcg PO DAILY constipation 07/31/21 [History Last Taken 07/20/22] bisacodyl 10 mg rectal suppository 10 mg CA DAILY constipation 04/13/22 [History Last Taken 07/20/22] mineral oil 30 ml PO DAILY PRN Constipation 04/13/22 [History Last Taken 07/18/22] baclofen 5 mg tablet 5 mg PO TID spasms 07/21/22 [History Last Taken 07/20/22] Allergy/AdvReac Type Severity Reaction Status Date / Time Iodinated Contrast Media Allergy Anaphylaxis Verified 08/10/22 21:39 [Iodinated Contrast Media - IV Dye] nitrofurantoin AdvReac Upset Verified 08/10/22 21:39 Stomach Family History Father Heart disease Kidney stones Prostate disease Brother Kidney stones Other Cancer Peptic ulcer disease Surgical History S/P release of urethral stricture S/P GIS SOFTWARE ENGINEER shunt Social History household members: family Smoking Status: Never smoker alcohol intake: never substance use type: does not use Physical Exam Const alert and no apparent distress General Appearance: cooperative HEENT head/scalp atraumatic Eyes PERRL and EOMs intact bilaterally Neck supple and No nodes Resp normal air movement and clear to auscultation bilaterally Cardio regular rate and regular rhythm GI soft to palpation, non-tender and non-distended Extremity General Extremity: Negative for edema Skin no rashes or lesions noted Neuro CN's II-XII intact bilaterally Lab / Micro Data Attestation: I reviewed the patient's lab results. Result Diagrams: 08/13/22 05:25 08/13/22 05:25 Labs: Laboratory Results - last 24 hr 08/13/22 05:25: WBC 6.2, RBC 3.70 L, Hgb 10.7 L, Hct 31.5 L, MCV 85.1, MCH 28.9, MCHC 34.0, RDW Std Deviation 39.9, RDW Coeff of Frieda 12.9, Plt Count 308, MPV 9.6, Immature Gran % (Auto) 0.300, Neut % (Auto) 47.2, Lymph % (Auto) 28.2, [place] % (Auto) 22.2 H, Eos % (Auto) 1.8, Baso % (Auto) 0.3, Absolute Neuts (auto) 2.9, Absolute Lymphs (auto) 1.74, Nucleated RBC % 0, Differential Comment SCANNED, Atypical Lymphocytes RARE 08/13/22 05:25: Sodium 135 L, Potassium 3.6, Chloride 101, Carbon Dioxide 25.0, Anion Gap 9, BUN 6 L, Creatinine 0.49 L, Estim Creat Clear Calc 132.36, Est GFR (MDRD) Af Amer 225, Est GFR (MDRD) Non-Af 186, BUN/Creatinine Ratio 12.1, Glucose 111 H, Calcium 8.1 L Micro: Microbiology 08/10/22 22:25 Urine Catheter - Catheter Urine Culture - Final Escherichia coli
--- NOTE | 2022-08-13 13:40 | CASEMGMT ---
Green sheet on chart for MAURA C and per sister, no concerns with pt going home at discharge. SStcam TREJO CM
--- NOTE | 2022-08-13 15:02 | CASEMGMT ---
Patient does not have a Healthcare Power of Tobacco Curer or Healthcare Living Will. Lisandra BAUTISTA did talk with patient's Board of [employer] Specialist, Sherri who will be meeting with patient in Aug. Sherri will address completion of documents at that time. Roslyn Mcbride RUBBER MOLDER PATRICK
--- NOTE | 2022-08-13 19:21 | PN.HOSP_ITS ---
Subjective Subjective Patient was seen and examined today, I briefly talked with his sister who was in the room at the time of my examination, I also talked with infectious diseases, infectious diseases stated that the patient could go home on Bactrim when he is medically stable but recommended he receive 1 more day of IV antibiotics. I relayed this to the patient and his sister. Patient's white blood cell count today was normal at 6.2, blood cultures are not back at this time, urine culture finalized as showing ESBL E. coli. Objective Data Objective Data Vital Signs: Vital Signs Temp Pulse Resp BP Pulse Ox O2 Del Method 99.2 F H 89 16 116/64 97 Room Air 08/13/22 16:35 08/13/22 16:35 08/13/22 16:35 08/13/22 16:35 08/13/22 16:35 08/13/22 16:35 Oxygen Delivery Method Room Air Weight: 54.3 kg Body Mass Index (BMI) 20.5 Intake & Output: Intake and Output for Last 24 Hours 08/11/22 08/12/22 08/13/22 23:59 23:59 23:59 Intake Total 3342.5 / 3342.5 2578.75 / 2828.75 3316.25 / 3316.25 Output Total 4125 / 4125 2600 / 4700 4125 / 4125 Balance -782.5 / -782.5 -21.25 / -1871.25 -808.75 / -808.75 Lab / Micro Data Result Diagrams: 08/13/22 05:25 08/13/22 05:25 Labs: Laboratory Results - last 24 hr 08/13/22 05:25: WBC 6.2, RBC 3.70 L, Hgb 10.7 L, Hct 31.5 L, MCV 85.1, MCH 28.9, MCHC 34.0, RDW Std Deviation 39.9, RDW Coeff of Frieda 12.9, Plt Count 308, MPV 9. 6, Immature Gran % (Auto) 0.300, Neut % (Auto) 47.2, Lymph % (Auto) 28.2, [place] % (Auto) 22.2 H, Eos % (Auto) 1.8, Baso % (Auto) 0.3, Absolute Neuts (auto) 2.9, Absolute Lymphs (auto) 1.74, Nucleated RBC % 0, Differential Comment SCANNED, Atypical Lymphocytes RARE 08/13/22 05:25: Sodium 135 L, Potassium 3.6, Chloride 101, Carbon Dioxide 25.0, Anion Gap 9, BUN 6 L, Creatinine 0.49 L, Estim Creat Clear Calc 132.36, Est GFR (MDRD) Af Amer 225, Est GFR (MDRD) Non-Af 186, BUN/Creatinine Ratio 12.1, Glucose 111 H, Calcium 8.1 L Micro: Microbiology 08/10/22 22:25 Urine Catheter - Catheter Urine Culture - Final Escherichia coli 08/10/22 22:17 Nasal Secretion SARS-CoV-2 & FLU Antigen (Rapid) - Final Physical Exam Narrative alert, oriented x3 and no apparent distress Constitutional Narrative: Patient appears older than his stated age General Appearance: cooperative Orientation / Consciousness: awake, oriented to person, oriented to place and oriented to time HEENT normocephalic, head/scalp atraumatic and moist oral mucous membranes Eyes PERRL, EOMs intact bilaterally and conjunctivae normal Neck supple, no JVD, thyroid normal and no carotid bruits General: trachea midline Resp normal respiratory effort and clear to auscultation bilaterally Auscultation: Negative for rales, rhonchi or wheezes Cardio regular rate, regular rhythm, no murmurs, no rub and no gallops GI normal to inspection, nondistended, normoactive bowel sounds, soft to palpation, non-tender and non-distended Extremity Extremity Narrative: Patient exhibits muscle atrophy over his legs and arms Skin no rashes or lesions noted General Skin Exam: no breakdown Neuro oriented x3 and CN's II-XII intact bilaterally Sensorium / Orientation: awake and alert Speech: speech normal Psych affect normal Assessment & Plan Assessment/Plan (1) UTI (urinary tract infection): PLAN: Plan 1. Acute cystitis with E. coli which is ESBL-continue meropenem at this time, ID will see the patient tomorrow #2 hyponatremia-BMP will be rechecked tomorrow, continue normal saline IV #3 chronic constipation-patient is on Linzess and mineral oil as well as Dulcolax Charges/Coding Visit Charges Inpatient E&M: 97177 Subs Hosp L2
[2022-08-14 02:30] VITALS: PULSE 91
[2022-08-14 03:12] VITALS: BP 133/75; PULSE 89; RESP 20; TEMP 36.2; O2SAT 97
[2022-08-14] MEDS: Linacolotide 145 MCG CAPSULE PO (05:04)
[2022-08-14] MEDS: Baclofen 10 MG Tablet 5 MG PO (05:04)
[2022-08-14 07:00] VITALS: PULSE 79
[2022-08-14 09:12] VITALS: BP 114/83; PULSE 92; RESP 16; TEMP 37.1; O2SAT 97
--- NOTE | 2022-08-14 10:24 | DCINST_ITS ---
Discharge Instructions Diet Discharge Diet: No restrictions Activity Discharge Activity: Return to Normal Activity Weight Bearing Status: Full weight bearing Follow Up Care Test Results: Test results from this visit will be discussed in further detail at your follow- up appointment, if applicable. Discharge Plan Admission Admit Date/Time: 08/10/22 23:47 Primary Reason for Your Visit: urinary tract infection Attending Provider: Geo Mercer Primary Care Provider: Lyndon Snaders Consulting Providers: Sidney Hinkle ; Juan Miguel Castro Discharge Orders/Prescriptions Prescriptions: New sulfamethoxazole-trimethoprim [Bactrim DS] 800-160 mg tablet 1 tab PO BID Qty: 14 0RF Rx Instructions: start today Continued Linzess 72 mcg capsule 145 mcg PO DAILY Label Comments: TAKE 1 CAP BY MOUTH ONCE DAILY ON EMPTY STOMACH SWALLOW WHOLE DO NOT CHEW/CRUSH mineral oil Oil 30 ml PO DAILY PRN (Reason: Constipation) bisacodyl 10 mg suppository 10 mg GA DAILY Rx Instructions: OTC baclofen 5 MG tablet 5 mg PO TID Rx Instructions: Hold for sedation/lethargy Referrals / Follow Up: Lyndon Sanders MD [Primary Care Provider] - Within 2 Weeks Disposition Disposition (needs filled in before D/C Order can be placed): Home, Self Care
--- NOTE | 2022-08-14 10:27 | DS.PCM_ITS ---
Providers Date of Admission: 08/10/22 Date of Discharge: 08/14/22 Primary Care Physician: Dr. Lyndon Sanders MD Consultations 08/12/22 12:24 Consult: Infectious Disease Routine Consulting Provider: Juan Miguel Castro Reason for Consult: ESBL EMERGENT Consult: No MD Notified: Yes Date Notified: 08/12/22 Time Notified: 12:24 Method of Notification: Verbal Reason For Visit: UTI, HYPONATREMIA Diagnosis Discharge Diagnosis (1) UTI (urinary tract infection): Status: Acute Code(s): N39.0 - Urinary tract infection, site not specified Plan 1. Acute cystitis with E. coli which is ESBL-continue meropenem at this time, ID will see the patient tomorrow #2 hyponatremia-BMP will be rechecked tomorrow, continue normal saline IV #3 chronic constipation-patient is on Linzess and mineral oil as well as Dulcolax #4 chronic urinary retention #5 metabolic encephalopathy due to acute cystitis Medications at Discharge Home Medications linaclotide 72 mcg capsule (Linzess) 145 mcg PO DAILY constipation 07/31/21 bisacodyl 10 mg rectal suppository 10 mg SC DAILY constipation 04/13/22 mineral oil 30 ml PO DAILY PRN Constipation 04/13/22 baclofen 5 mg tablet 5 mg PO TID spasms 07/21/22 sulfamethoxazole 800 mg-trimethoprim 160 mg tablet (Bactrim DS) 1 tab PO BID #14 tabs 08/14/22 Hospital Course Operations None Procedures None Summary of Care Provided Minutes Spent on Discharge: 32 Hospital Course: This 56-year-old white male was seen in the emergency room at [facility] with complaints of fever and chills and altered mental status. Patient has a chronic indwelling Bowman, labs obtained in the emergency room revealed an elevated white blood cell count 11.4, patient's sodium was low at 119. Chest x- ray showed no acute abnormal finding, patient's urinalysis showed red blood cells, white blood cells, and bacteria although the patient did have a chronic indwelling Bowman catheter. Patient was lethargic. Patient was felt to have an acute urinary tract infection, he was admitted to PCU and placed on IV antibiotics, patient's mentation improved, he was given IV normal saline and his sodium improved. Patient's urine resulted in positive for E. coli which was ESBL, patient's antibiotics were changed to meropenem and he was seen in consultation by infectious diseases who made recommendations for outpatient oral antibiotic at the time of discharge (Bactrim DS) On 08/14/2022, patient was seen and examined: On examination he appeared in good health and spirits. Vital signs as documented. Skin warm and dry and without overt rashes. Neck without JVD, neck was supple, trachea midline, thyroid was normal. Lungs clear bilaterally, normal air movement was noted. Heart exam notable for regular rhythm, normal sounds and absence of murmurs, rubs or gallops. Abdomen unremarkable and without evidence of organomegaly, masses, or abdominal aortic enlargement. Bowel sounds are present, abdomen is not dist ended. Extremities nonedematous, no cyanosis was noted, no clubbing was noted. There is noted to be generalized wasting of the patient's extremities in keeping with chronic physical disability. Neuro: Cranial nerves II through XII are grossly intact, no focal motor deficits were noted, sensation to light touch and pinprick intact, motor exam 5/5 throughout. Psych: Patient is alert and oriented x3, he does not appear anxious or depressed, he does not appear agitated. Patient was felt to be stable for discharge on 08/14/2022, I had lengthy conversations with the patient's sister during my examinations of the patient during his hospital stay. Patient lives with his family. Weight / BMI Weight Weight: 54.3 kg Body Mass Index (BMI) 20.5 ABG / Lab / Microbiology Data Result Diagrams: 08/13/22 05:25 08/13/22 05:25 Microbiology: Microbiology 08/10/22 22:25 Urine Catheter - Catheter Urine Culture - Final Escherichia coli 08/10/22 22:17 Nasal Secretion SARS-CoV-2 & FLU Antigen (Rapid) - Final D/C Instructions Discharge Diet: No restrictions Weight Bearing Status: Full weight bearing Meaningful Use Info Meaningful Use Diagnoses (Choose all that apply): None applicable Discharge Plan Admission Admit Date/Time: 08/10/22 23:47 Primary Reason for Your Visit: urinary tract infection Attending Provider: Geo Mercer Primary Care Provider: Lyndon Sanders Consulting Providers: Sidney Hinkle ; Juan Miguel Castro Discharge Orders/Prescriptions Prescriptions: New sulfamethoxazole-trimethoprim [Bactrim DS] 800-160 mg tablet 1 tab PO BID Qty: 14 0RF Rx Instructions: start today Continued Linzess 72 mcg capsule 145 mcg PO DAILY Label Comments: TAKE 1 CAP BY MOUTH ONCE DAILY ON EMPTY STOMACH SWALLOW WHOLE DO NOT CHEW/CRUSH mineral oil Oil 30 ml PO DAILY PRN (Reason: Constipation) bisacodyl 10 mg suppository 10 mg SC DAILY Rx Instructions: OTC baclofen 5 MG tablet 5 mg PO TID Rx Instructions: Hold for sedation/lethargy Referrals / Follow Up: Lyndon Sanders MD [Primary Care Provider] - Within 2 Weeks Disposition Disposition (needs filled in before D/C Order can be placed): Home, Self Care Charges/Coding Visit Charges Inpatient E&M: 83322 Disch Hosp
[2022-08-14] MEDS: Bisacodyl 10 MG Suppository RC (10:38)
[2022-08-14] MEDS: Enoxaparin 40 MG/0.4 ML Syringe SC (10:39)
[2022-08-14] MEDS: Nystatin Powder 15gm Bottle 1 APPLIC TOPICAL (10:40)
--- NOTE | 2022-08-14 11:59 | NURSING ---
Around 1040 I spoke tricia Gustafson with [facility] to inform her of PT's D/c I also faxed d/c instructions over.
== END 2022-08-14 13:24 | disposition home or self-care (01) | DRG 698 ==
LOC: ED 23:30 → PCU 23:48
PROVIDERS: Nurse Practitioner Family; Admitting Provider Hospitalist; Emergency Provider Emergency Medicine; PCP Family Medicine; Visit Provider Internal Medicine
DX: T83.511A Infection and inflammatory reaction due to indwelling urethral catheter, initial encounter (principal); G93.41 Metabolic encephalopathy; E87.1 Hypo-osmolality and hyponatremia; N30.00 Acute cystitis without hematuria; K59.09 Other constipation; I10 Essential (primary) hypertension; Z79.2 Long term (current) use of antibiotics; B96.20 Unspecified Escherichia coli [E. coli] as the cause of diseases classified elsewhere; Z98.2 Presence of cerebrospinal fluid drainage device; R33.9 Retention of urine, unspecified
CPT/HCPCS: 36415; 71045; 80048; 80076; 81001; 81002; 82570; 83036; 83605; 83735; 83930; 83935; 84100; 84300; 84443; 85025; 87040; 87077; 87086; 87088; 87186; 87428; 97110; 97162; 97166; 97530; 97535; 97802; 99285; J2185; J7030; A4216

== ENCOUNTER 2022-09-09 21:27 | Inpatient (IN) | payer MEDICARE, MEDICAID, SELFPAY ==
[2022-09-09 21:28] VITALS: BP 136/84; PULSE 113; RESP 18; TEMP 36.6; O2SAT 95; BMI 21.0
--- NOTE | 2022-09-09 21:51 | EDS_ITS ---
HPI <Dr. Richard Dodd DO - Last Filed: 09/10/22 08:28> HPI - GI History of Present Illness Chief Complaint: Abd Pain Informant: spouse/S.O. Limited: other (Patient is nonverbal) Abdominal Pain/Flank Pain Onset: Today Context: Gradual Onset Timing: Continuous Location: Diffuse Nausea/Vomiting/Emesis GI Symptom: Positive for Nausea and Vomiting Onset: Today Diarrhea/Melena/Hematochezia GI Symptom: Negative for Diarrhea, Melena or Hematochezia Narrative Narrative: Patient presents with nausea and vomiting that began today. states that t he patient has a history of small bowel obstructions and thinks he is developing another 1. Patient is nonverbal and is a poor informant. states the patient is having some emesis of stomach contents. states nothing makes it better nothing makes it worse. states patient did have a bowel movement today. denies any fevers or chills. Patient has a chronic indwelling Bowman catheter for urinary retention. [facility] <Dr. Ricahrd Dodd DO - Last Filed: 09/10/22 08:28> [facility] Medical History Chronic indwelling Bowman catheter Fever Gastroparesis History of urinary retention Hydrocephalus Hypertension Hyponatremia Ileus Kidney stones Seizures Home Medications linaclotide 72 mcg capsule (Linzess) 145 mcg PO DAILY constipation 07/31/21 [History Last Taken 07/20/22] baclofen 5 mg tablet 5 mg PO TID spasms 07/21/22 [History Last Taken 07/20/22] Allergy/AdvReac Type Severity Reaction Status Date / Time Iodinated Contrast Media Allergy Anaphylaxis Verified 09/09/22 21:29 [Iodinated Contrast Media - IV Dye] nitrofurantoin AdvReac Upset Verified 09/09/22 21:29 Stomach Family History Father Heart disease Kidney stones Prostate disease Brother Kidney stones Other Cancer Peptic ulcer disease Surgical History S/P release of urethral stricture S/P [employer] shunt Social History household members: family Smoking Status: Never smoker alcohol intake: never substance use type: does not use ROS <Dr. Richard Dodd, DO - Last Filed: 09/10/22 08:28> ROS ED Review of Systems ROS Unobtainable: due to mental condition Constitutional Constitutional ED: Denies fever(s) or sweats Gastrointestinal Gastrointestinal: Reports nausea and vomiting Genitourinary Genitourinary ED: Denies dysuria or hematuria Integumentary Denies abscess or rash Allergic/Immunologic Allergic/Immunologic ED: Denies mouth swelling or tongue swelling EXAM <Dr. Richard Dodd, DO - Last Filed: 09/10/22 08:28> Physical Exam Const Vital Signs: 09/09/22 21:28 09/09/22 23:59 09/10/22 02:19 Temperature 97.8 F Temperature Source Temporal Pulse Rate 113 H Respiratory Rate 18 18 Blood Pressure 136/84 H 92/38 L Blood Pressure Mean 101 56 Pulse Ox 95 Oxygen Delivery Method Room Air 09/10/22 03:38 09/10/22 05:13 09/10/22 07:08 Temperature Temperature Source Pulse Rate 87 78 Respiratory Rate 18 18 Blood Pressure 121/75 H 102/77 105/69 Blood Pressure Mean 90 85 81 Pulse Ox 97 93 Oxygen Delivery Method Room Air Room Air 09/10/22 07:28 09/10/22 08:00 Temperature 98.7 F Temperature Source Temporal Pulse Rate 87 Respiratory Rate 14 Blood Pressure 105/69 117/92 H Blood Pressure Mean 81 100 Pulse Ox 96 95 Oxygen Delivery Method Room Air Room Air Positive well nourished General Appearance ED: NAD HEENT Reports moist mucous membranes Neck supple and no JVD Resp normal respiratory effort and clear to auscultation bilaterally Cardio regular rate and regular rhythm GI Auscultation: hypoactive bowel sounds Palpation: soft Neuro CN's II-XII intact bilaterally and no sensory deficits noted Sensorium / Orientation: alert Psych mental status grossly normal <Dr. Triny Lackey, DO - Last Filed: 09/10/22 08:02> Physical Exam Const Vital Signs: 09/09/22 21:28 09/09/22 23:59 09/10/22 02:19 Temperature 97.8 F Temperature Source Temporal Pulse Rate 113 H Respiratory Rate 18 18 Blood Pressure 136/84 H 92/38 L Blood Pressure Mean 101 56 Pulse Ox 95 Oxygen Delivery Method Room Air 09/10/22 03:38 09/10/22 05:13 09/10/22 07:08 Temperature Temperature Source Pulse Rate 87 78 Respiratory Rate 18 18 Blood Pressure 121/75 H 102/77 105/69 Blood Pressure Mean 90 85 81 Pulse Ox 97 93 Oxygen Delivery Method Room Air Room Air 09/10/22 07:28 09/10/22 08:00 Temperature 98.7 F Temperature Source Temporal Pulse Rate 87 Respiratory Rate 14 Blood Pressure 105/69 117/92 H Blood Pressure Mean 81 100 Pulse Ox 96 95 Oxygen Delivery Method Room Air Room Air MDM <Dr. Richard Dodd, DO - Last Filed: 09/10/22 08:28> [facility] Narrative Medical decision making narrative: Patient was given IV fluids. CBC shows a leukocytosis of 18.2. Comprehensive metabolic profile shows a sodium of 126. This is consistent with prior results. Urinalysis shows positive nitrates and a leukocyte esterases of 500. There were greater than 100 white blood cells and 25-50 red blood cells. Occult blood was 250. There is 3+ bacteria. Urine culture was ordered. CT scan of the abdomen pelvis was ordered and is pending. Lactate was ordered and is pending. Blood cultures were ordered. Patient was given a dose of Zosyn. Care of the patient was turned over to the oncoming physician. Lab Data Attestation: I reviewed the patient's lab results. Labs: Laboratory Results - last 24 hr 09/09/22 09/09/22 09/09/22 21:50 21:50 21:58 WBC 18.2 H RBC 5.68 Hgb 16.9 H Hct 47.7 MCV 84.0 MCH 29.8 MCHC 35.4 RDW Std Deviation 41.0 RDW Coeff of Frieda 13.3 Plt Count 366 MPV 10.2 Immature Gran % (Auto) 0.200 Neut % (Auto) 87.5 H Lymph % (Auto) 4.8 L Osborne % (Auto) 7.1 Eos % (Auto) 0.1 Baso % (Auto) 0.3 Absolute Neuts (auto) 15.9 H Absolute Lymphs (auto) 0.88 Nucleated RBC % 0 Sodium 126 L Potassium 3.5 Chloride 92 L Carbon Dioxide 22.0 Anion Gap 12 BUN 17 Creatinine 1.18 Estim Creat Clear Calc 54.64 Est GFR (MDRD) Af Amer 83 Est GFR (MDRD) Non-Af 68 BUN/Creatinine Ratio 14.4 Glucose 141 H Lactic Acid Calcium 9.8 Total Bilirubin 0.70 AST 14 L ALT 21 Alkaline Phosphatase 83 Total Protein 9.2 H Albumin 4.3 Globulin 4.9 H Albumin/Globulin Ratio 0.9 Lipase 91 Urine Color Yellow Urine Clarity Cloudy Urine pH 6.5 Ur Specific Meherrin 1.015 Urine Protein 500 H Urine Glucose (UA) Normal Urine Ketones 15 H Urine Occult Blood 250 H Urine Nitrite Positive H Urine Bilirubin Negative Urine Urobilinogen Normal Ur Leukocyte Esterase 500 H Urine RBC 25-50 SEEN Urine WBC >100 SEEN Ur Squamous Epith Cells 0 SEEN Urine Bacteria 3+ Urine Mucus 0 SEEN 09/09/22 22:15 WBC RBC Hgb Hct MCV MCH MCHC RDW Std Deviation RDW Coeff of Frieda Plt Count MPV Immature Gran % (Auto) Neut % (Auto) Lymph % (Auto) Osborne % (Auto) Eos % (Auto) Baso % (Auto) Absolute Neuts (auto) Absolute Lymphs (auto) Nucleated RBC % Sodium Potassium Chloride Carbon Dioxide Anion Gap BUN Creatinine Estim Creat Clear Calc Est GFR (MDRD) Af Amer Est GFR (MDRD) Non-Af BUN/Creatinine Ratio Glucose Lactic Acid 1.6 Calcium Total Bilirubin AST ALT Alkaline Phosphatase Total Protein Albumin Globulin Albumin/Globulin Ratio Lipase Urine Color Urine Clarity Urine pH Ur Specific Meherrin Urine Protein Urine Glucose (UA) Urine Ketones Urine Occult Blood Urine Nitrite Urine Bilirubin Urine Urobilinogen Ur Leukocyte Esterase Urine RBC Urine WBC Ur Squamous Epith Cells Urine Bacteria Urine Mucus Radiography Diagnostic Testing: Clinical Impression(s) from Imaging Studies KUB X-Ray 09/10/22 02:19 IMPRESSION: 1. Transesophageal catheter is new in the interval. Side port is below the GE junction and tip is at the proximal stomach. 2. No other changes from before. Electronically Signed: Abdirahman Patterson MD at 2:45 EDT , <Dr. Triny Lackey, DO - Last Filed: 09/10/22 08:02> [facility] MDM Narrative Medical decision making narrative: Patient was given IV fluids. CBC shows a leukocytosis of 18.2. Comprehensive metabolic profile shows a sodium of 126. This is consistent with prior results. Urinalysis shows positive nitrates and a leukocyte esterases of 500. There were greater than 100 white blood cells and 25-50 red blood cells. Occult blood was 250. There is 3+ bacteria. Urine culture was ordered. CT scan of the abdomen pelvis was ordered and is pending. Lactate was ordered and is pending. Blood cultures were ordered. Patient was given a dose of Zosyn. Care of the patient was turned over to the oncoming physician. Darya-patient signed out to me pending CT results. CT shows bladder calculi with bladder diverticula to exclude herniation of the left bladder diverticulum into the inguinal canal. There is associated inflammation about the herniated diverticulum raising concern for infection/inflammation/ischemia. Lactate is normal. Patient does have a history of ESBL. 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 Patient is accepted by Dr. Guadalupe at [facility] [place] however he is put on the wait list at there are no beds available. Patient remains hemodynamically stable. NG tube is placed as patient has an ileus versus early small bowel obstruction and is vomiting. Tolerates this well. He was placed on maintenance fluids. In the morning patient is evaluated by surgery who will questions if the UTI is actually because of his leukocytosis and this inguinal bladder diverticulum is more of an incidental finding. Patient be admitted to the medicine service with surgery and urology on consult. Lab Data Labs: Laboratory Results - last 24 hr 09/09/22 09/09/22 09/09/22 21:50 21:50 21:58 WBC 18.2 H RBC 5.68 Hgb 16.9 H Hct 47.7 MCV 84.0 MCH 29.8 MCHC 35.4 RDW Std Deviation 41.0 RDW Coeff of Frieda 13.3 Plt Count 366 MPV 10.2 Immature Gran % (Auto) 0.200 Neut % (Auto) 87.5 H Lymph % (Auto) 4.8 L Osborne % (Auto) 7.1 Eos % (Auto) 0.1 Baso % (Auto) 0.3 Absolute Neuts (auto) 15.9 H Absolute Lymphs (auto) 0.88 Nucleated RBC % 0 Sodium 126 L Potassium 3.5 Chloride 92 L Carbon Dioxide 22.0 Anion Gap 12 BUN 17 Creatinine 1.18 Estim Creat Clear Calc 54.64 Est GFR (MDRD) Af Amer 83 Est GFR (MDRD) Non-Af 68 BUN/Creatinine Ratio 14.4 Glucose 141 H Lactic Acid Calcium 9.8 Total Bilirubin 0.70 AST 14 L ALT 21 Alkaline Phosphatase 83 Total Protein 9.2 H Albumin 4.3 Globulin 4.9 H Albumin/Globulin Ratio 0.9 Lipase 91 Urine Color Yellow Urine Clarity Cloudy Urine pH 6.5 Ur Specific Meherrin 1.015 Urine Protein 500 H Urine Glucose (UA) Normal Urine Ketones 15 H Urine Occult Blood 250 H Urine Nitrite Positive H Urine Bilirubin Negative Urine Urobilinogen Normal Ur Leukocyte Esterase 500 H Urine RBC 25-50 SEEN Urine WBC >100 SEEN Ur Squamous Epith Cells 0 SEEN Urine Bacteria 3+ Urine Mucus 0 SEEN 09/09/22 22:15 WBC RBC Hgb Hct MCV MCH MCHC RDW Std Deviation RDW Coeff of Frieda Plt Count MPV Immature Gran % (Auto) Neut % (Auto) Lymph % (Auto) Osborne % (Auto) Eos % (Auto) Baso % (Auto) Absolute Neuts (auto) Absolute Lymphs (auto) Nucleated RBC % Sodium Potassium Chloride Carbon Dioxide Anion Gap BUN Creatinine Estim Creat Clear Calc Est GFR (MDRD) Af Amer Est GFR (MDRD) Non-Af BUN/Creatinine Ratio Glucose Lactic Acid 1.6 Calcium Total Bilirubin AST ALT Alkaline Phosphatase Total Protein Albumin Globulin Albumin/Globulin Ratio Lipase Urine Color Urine Clarity Urine pH Ur Specific Meherrin Urine Protein Urine Glucose (UA) Urine Ketones Urine Occult Blood Urine Nitrite Urine Bilirubin Urine Urobilinogen Ur Leukocyte Esterase Urine RBC Urine WBC Ur Squamous Epith Cells Urine Bacteria Urine Mucus Radiography Diagnostic Testing: Clinical Impression(s) from Imaging Studies KUB X-Ray 09/10/22 02:19 IMPRESSION: 1. Transesophageal catheter is new in the interval. Side port is below the GE junction and tip is at the proximal stomach. 2. No other changes from before. Electronically Signed: Abdirahman Patterson MD at 2:45 EDT , <Dr. Richard Dodd, DO - Last Filed: 09/10/22 08:28> Critical Care Time Critical Care Time: Yes Critical care time (excluding procedures): 30-74 minutes (33), Including time spent:, Discussing w/Patient &/or Family/Real Estate Loan Officer, Discussing w/Consultants, Arranging Admission or Transfer and Performing Direct Patient Care at Bedside Discharge Plan Triage Chief Complaint: Abd Pain Other Complaint: Nausea/Vomiting ED Provider: Richard Dodd Dx/Rx/DC Orders Clinical Impression: Abdominal pain, Nausea and vomiting, Catheter-associated urinary tract infection, Ileus, Bladder diverticulum, Inguinal hernia Primary Care Provider: Lyndon Sanders Disposition Disposition: Acute Care Hospital
[2022-09-09 22:09] LABS: Mucous, Urine 0 SEEN /hpf (<or=2+); Squamous Epithelial Cells - UA 0 SEEN /hpf (0-5)
[2022-09-09 22:14] LABS: Absolute Lymphocyte Count 0.88 X10^3/uL (0.83-4.51); Absolute Neutrophil Count 15.9 X10^3/uL (2.0-7.7); Basophil# 0.05 X10^3/uL; Basophil% 0.3 % (0-1); Eosinophil# 0.01 X10^3/uL; Eosinophils% 0.1 % (0-5); Hematocrit 47.7 % (40-54); Hemoglobin 16.9 g/dL (13.0-16.5); Lymphocyte # 0.88 X10^3/ul (0.83-4.51); Lymphocyte % 4.8 % (19-41); Mean Corp Hgb Conc 35.4 g/dL (32-36); Mean Corpuscular Hgb 29.8 pg (27.0-32.0); Mean Platelet Vol. 10.2 fl (6.2-12.0); Monocyte# 1.29 X10^3/uL; Monocyte% 7.1 % (0-10); NRBC Flagged by Analyzer 0 % (0-5); Neutrophil % 87.5 % (47-70); Platelet Count 366 K/mm3 (150-450); RBC Distribution Width CV 13.3 % (11.6-14.6); Red Blood Count 5.68 M/mm3 (4.6-6.2); White Blood Count 18.2 K/mm3 (4.4-11.0)
[2022-09-09] MEDS: 0.9% Normal Saline 1,000 ML 1000 ML IV (22:17)
[2022-09-09 22:20] LABS: Color, Urine Yellow (Yellow); Glucose, Dipstick Normal (Normal); Ketone-Dipstick 15 mg/dl (Negative); Leukocyte Esterase-Dipstick 500 /ul (Negative); Nitrite-Dipstick Positive (Negative); Occult Blood-Urine 250 /ul (Negative); Protein-Dipstick 500 mg/dl (Negative); Specific Gravity, Urine 1.015 (1.002-1.030); Urine Bilirubin Dipstick Negative (Negative); Urine Clarity Cloudy (Clear); Urine Urobilinogen Normal (Normal); Urine pH 6.5 (5.0 - 8.0)
[2022-09-09] MEDS: MethylPREDNISolone 125 MG/2 ML Vial IV (22:21)
[2022-09-09] MEDS: Ondansetron 4 MG/2 ML Vial IV (22:21)
[2022-09-09] MEDS: DiphenhydrAMINE 50 MG/ML Syringe 25 MG IV (22:23)
[2022-09-09 22:26] LABS: Bacteria 3+ /hpf (None Seen); Red Blood Cells-Urine 25-50 SEEN /hpf (0-5); White Blood Cells >100 SEEN /hpf (0-5)
[2022-09-09] MEDS: Famotidine 200 MG/20 ML MDV 20 MG in 0.9% Normal Saline (Pres. free 8 ML 300 MG IV (22:28)
[2022-09-09 22:31] LABS: ALB/GLOB Ratio 0.9 RATIO (0.9-2.4); AST(SGOT) 14 U/L (15-37); Alanine Aminotransfer ALT/SGPT 21 U/L (16-61); Albumin, Serum 4.3 g/dL (3.2-5.0); Alkaline Phosphatase 83 U/L (45-117); Anion Gap 12 (5-15); BUN 17 mg/dL (7-18); BUN/Creat Ratio 14.4 RATIO (10-20); Calcium,Total 9.8 mg/dL (8.5-10.1); Chloride 92 mmol/L (98-107); Creatinine, Serum 1.18 mg/dL (0.70-1.30); EST Glomerular Filtration Rate 68 mL/min (>60); Est Glom Filt Rate - Afr Amer 83 mL/min (>60); Estimated Creatinine Clearance 54.64 ml/min; Globulin 4.9 g/dL (2.2-4.2); Glucose 141 mg/dL (74-106); Lipase 91 U/L (73-393); Potassium 3.5 mmol/L (3.5-5.1); Protein, Total 9.2 g/dL (6.4-8.2); Sodium Level 126 mmol/L (136-145)
[2022-09-09 23:07] LABS: Lactic Acid 1.6 mmol/L (0.4-1.9)
[2022-09-09 23:59] VITALS: RESP 18
[2022-09-10] VITALS (9 sets, daily range): BP systolic 92–130; BP diastolic 38–92; PULSE 78–88; RESP 14–18; TEMP 36.6–37.1; O2SAT 93–99; BMI 21.3
--- NOTE | 2022-09-10 02:19 | RAD_ITS ---
EXAM: XR ABDOMEN, 1 VIEW CLINICAL INDICATION: NG Insertion TECHNIQUE: Frontal supine view of the abdomen/pelvis. This report was created using [employer] report generation technology. COMPARISON: None. FINDINGS: See Impression. RAD/Abdomen Single View (Portable) IMPRESSION: 1. Transesophageal catheter is new in the interval. Side port is below the GE junction and tip is at the proximal stomach. 2. No other changes from before. Electronically Signed: Abdirahman Patterson MD at 2:45 EDT ,
[2022-09-10] MEDS: 0.9% Normal Saline 1,000 ML 150 ML IV ×3 (08:00→20:35)
--- NOTE | 2022-09-10 08:02 | CON.PCM.SX_ITS ---
Assessment & Plan Assessment/Plan (1) Inguinal hernia: (2) Bladder diverticulum: (3) Nausea and vomiting: (4) Abdominal pain: PLAN: Plan This is a 56-year-old, medically complex, patient who initially presented with acute onset nausea, vomiting, and abdominal pain as well as signs of sepsis and CT imaging concerning for potential incarcerated/strangulated bladder diverticulum. On evaluation, patient did not have any contents to his left inguinal hernia and his abdominal exam is improved. He appears responsive to intravenous fluid resuscitation as his pressures were normal during my evaluation. I did note that he had a markedly abnormal urinalysis with elevated leukocyte esterase and nitrite positivity. With these observations I became relatively reassured that patient's white blood cell count and vital signs were not related to his inguinal hernia process and became suspicious for recurrent urinary tract infection. I did recommend, in this patient with limited verbal ability, that urology consultation be considered for complete evaluation of potential bladder involvement prior to my evaluation. I also recommended medicine admission for evaluation and treatment of urinary tract infection. Further recommendations: ? Continue surveillance of patient's abdominal exam ? Continue nasogastric tube to intermittent low wall suction until patient spontaneously demonstrating return of bowel function HPI Consult Data Date of Consult: 09/10/22 HPI Narrative Reason for Consultation: Abdominal pain with concerning imaging of left inguinal hernia HPI Narrative: JIAN ALTAMIRANO, is a 56 M, with a complex past medical history stemming from a diagnosis of congenital hydrocephalus status post [employer] shunt, who presents with his sister (primary caregiver) for recent complaints of abdominal pain, multiple bouts of emesis, and some hardening of his abdomen. History is primarily provided by patient's sister. She states that approximately a day and a half prior to presentation she noticed that her brother was having troubles with having bowel movements. She stated this was not necessarily unusual as she must really work at them. However yesterday, he began to have more firmness to his abdominal wall and had multiple episodes of vomiting yellow frothy fluid. She estimates in total he had a pint worth of vomiting. She insists there were no other associated signs of infection. Patient's ER work-up was notable for concerning vitals with some tachycardia and intermittent blood pressure readings of hypotension. White blood cell count was 18,[address] imaging was concerning for potentially ischemic bladder diverticulum with an patient's known left-sided inguinal hernia. On hearing and observing these features of his presentation, I immediately recommended transfer to a higher level of care?and suggested [facility] as this was reported to be where he primarily follows. I suggested my concerns were for an inability to address his care in a multidisciplinary fashion?as this may require emergent urologic assistance and neurosurgical assistance. I also advised them to begin empiric antibiotic coverage, consider NG-tube placement, and attempt to reduce patient's hernia. Emergency medicine sought referral as directed and received provisional acceptance at the Clinic, but was told there was no bed availability. They just began trying to seek placement elsewhere, but were not able to find bed availability with any of the options attempted. Therefore, I was asked to evaluate patient for probable admission here at [facility]. In reviewing patient's recent history with his sister, she comments that he was admitted to [facility] with signs and symptoms of a small bowel obstruction beginning of July. Then at the end of the month he required a second hospitalization for a multidrug-resistant E. coli UTI infection. She confirmed that he completed antibiotics for this infection and returned home to a normal state of health until his presentation today. Patient's sister also reports that his last [employer]END[employer] shunt intervention was a repair at the age of 19. She reports this was also the time of his last seizure?as occasioned by shunt malfunction. She vaguely recalls a possible intervention to her brother's kidney on the left side when he was young, but otherwise is unaware of any additional abdominal surgery. [facility] Medical History Chronic indwelling Bowman catheter Fever Gastroparesis History of urinary retention Hydrocephalus Hypertension Hyponatremia Ileus Kidney stones Seizures Home Medications linaclotide 72 mcg capsule (Linzess) 145 mcg PO DAILY constipation 07/31/21 [History Last Taken 07/20/22] baclofen 5 mg tablet 5 mg PO TID spasms 07/21/22 [History Last Taken 07/20/22] bisacodyl 10 mg rectal suppository (Dulcolax (bisacodyl)) 10 mg DC DAILY constipation 09/10/22 [History Last Taken Unknown] mineral oil 1 ea DC DAILY PRN Constipation 09/10/22 [History Last Taken Unknown] Allergy/AdvReac Type Severity Reaction Status Date / Time Iodinated Contrast Media Allergy Anaphylaxis Verified 09/09/22 21:29 [Iodinated Contrast Media - IV Dye] nitrofurantoin AdvReac Upset Verified 09/09/22 21:29 Stomach Family History Father Heart disease Kidney stones Prostate disease Brother Kidney stones Other Cancer Peptic ulcer disease Surgical History S/P release of urethral stricture S/P [employer]END[employer] shunt Social History household members: family Smoking Status: Never smoker alcohol intake: never substance use type: does not use Physical Exam Const alert Constitutional Narrative: Patient provides limited verbal feedback, but that which she does is appropriate HEENT HEENT Narrative: Nasogastric tube in place Resp normal respiratory effort GI GI Narrative: Nasogastric tube in place draining a light brown/frothy effluent of moderate volume. Patient's left groin immediately evaluated and there is no bulge present. A normal testicle was found in the left hemiscrotum and I probed the patient's left groin hernia to find it fully reduced and was able to insert my finger through a rather large defect into the patient's peritoneum. Patient's abdomen was soft and he denied any tenderness with palpation exam Bladder / Kidney Exam: catheter in place urethral Groin / Perineum Exam: reducible hernia Lab / Micro Data Result Diagrams: 09/09/22 21:50 09/09/22 21:50 Labs: Laboratory Results - last 24 hr 09/09/22 21:50: WBC 18.2 H, RBC 5.68, Hgb 16.9 H, Hct 47.7, MCV 84.0, MCH 29.8, MCHC 35.4, RDW Std Deviation 41.0, RDW Coeff of Frieda 13.3, Plt Count 366, MPV 10.2, Immature Gran % (Auto) 0.200, Neut % (Auto) 87.5 H, Lymph % (Auto) 4.8 L, [place] % (Auto) 7.1, Eos % (Auto) 0.1, Baso % (Auto) 0.3, Absolute Neuts (auto) 15.9 H, Absolute Lymphs (auto) 0.88, Nucleated RBC % 0 09/09/22 21:50: Sodium 126 L, Potassium 3.5, Chloride 92 L, Carbon Dioxide 22.0, Anion Gap 12, BUN 17, Creatinine 1.18, Estim Creat Clear Calc 54.64, Est GFR (MDRD) Af Amer 83, Est GFR (MDRD) Non-Af 68, BUN/Creatinine Ratio 14.4, Glucose 141 H, Calcium 9.8, Total Bilirubin 0.70, AST 14 L, ALT 21, Alkaline Phosphatase 83, Total Protein 9.2 H, Albumin 4.3, Globulin 4.9 H, Albumin/Globulin Ratio 0.9, Lipase 91 09/09/22 21:58: Urine Color Yellow, Urine Clarity Cloudy, Urine pH 6.5, Ur Specific [place] 1.015, Urine Protein 500 H, Urine Glucose (UA) Normal, Urine Ketones 15 H, Urine Occult Blood 250 H, Urine Nitrite Positive H, Urine Bilirubin Negative, Urine Urobilinogen Normal, Ur Leukocyte Esterase 500 H, Urine RBC 25-50 SEEN, Urine WBC >100 SEEN, Ur Squamous Epith Cells 0 SEEN, Urine Bacteria 3+, Urine Mucus 0 SEEN 09/09/22 22:15: Lactic Acid 1.6 Micro: Microbiology 09/10/22 02:04 Nasal Secretion SARS-CoV-2 Antigen (Rapid) - Final Radiology Impression KUB X-Ray 09/10/22 02:19 IMPRESSION: 1. Transesophageal catheter is new in the interval. Side port is below the GE junction and tip is at the proximal stomach. 2. No other changes from before. Electronically Signed: Abdirahman Patterson MD at 2:45 EDT , Abdomen CT 09/10/22 22:01 IMPRESSION: Bladder calculi with bladder diverticula to exclude herniation of the left bladder diverticulum into the inguinal canal. There is inflammation about the herniated diverticulum raising for infection/inflammation/ischemia. Electronically Signed: Abdirahman Patterson MD at 1:29 EDT , Charges/Coding Visit Charges Office Visits / Consults: 73719 IP Consult L2
--- NOTE | 2022-09-10 10:40 | CASEMGMT ---
RN ANGELITO Face to Face with patient for initial transition planning/care coordination assessment. RN CM introduced self and role at [facility]. Patient lying in bed, alert and oriented. Patient willing to participate in assessment and is able to answer all questions appropriately. Care providers, pharmacy, and demographics verified. Patient wishes to discharge home with resumption of HHC with [facility] HHC, patient declines list of HHC agnecies. Patient states he has no further needs or concerns at this time. CM to follow for discharge planning needs that may arise. PCP: Tommy Specialists: Urologist, GI, and Neurologist at [facility] Preferred Pharmacy: [facility] Insurance: Olinda Garcia Prescription Benefit: yes Living Will/HPOA: none LNOK: sisters Living Arrangements: Patient lives in a 2 story home with bed and bath on first floor. Sisters rotate every 2 weeks staying with patient and providing care. Transportation: sisters DME/HHC: Patient has BSC, raised toielt, cane, grab bars, walker, and wheelchair at home. Patient is active with [facility] and would like to return home with them. No previous SNF. Disposition Plan: Patient to discharge home with HHC, family support, and follow-up plans in place. Anita FIELDS, RN, CM
[2022-09-10] MEDS: Baclofen 10 MG Tablet 5 MG PO ×2 (14:44→23:01)
--- NOTE | 2022-09-10 16:59 | PCM.HP.STD ---
HPI - General General Date of Admission: 09/10/22 Date of Service: 09/10/22 Chief Complaint: Lower abdominal pain, nausea and vomiting HPI Narrative JIAN ALTAMIRANO, is a 56 M who presents to the emergency room at [facility] with complaints of lower abdominal pain along with nausea and vomiting. Patient presented on 09/09/2022 with these complaints, he was diagnosed with an ileus and a urinary tract infection, imaging studies done revealed a bladder diverticula with possible herniation of the left bladder diverticulum into the inguinal canal. There is noted to be inflammation about the herniated diverticulum raising concerns for infection. Arrangements were made for the patient be transferred to [facility] but there is no bed available, patient was then reevaluated by general surgery and it was felt that the he had an ileus and a urinary tract infection and that the patient could be admitted here. I talked with the patient's sister whom he lives with, patient is disabled due to hydrocephalus.. He is taken care of by his family. Patient's sister would like him transferred to [facility] when a bed becomes available. Until then, patient will be admitted to [place] [id number], NG tube will remain in place, and the patient will be given IV antibiotics for presumed ESBL urinary tract infection which she has had in the past. FOR[facility]LY [facility] Medical History Chronic indwelling Bowman catheter Fever Gastroparesis History of urinary retention Hydrocephalus Hypertension Hyponatremia Ileus Kidney stones Seizures Home Medications linaclotide 72 mcg capsule (Linzess) 145 mcg PO DAILY constipation 07/31/21 [History Last Taken 07/20/22] baclofen 5 mg tablet 5 mg PO TID spasms 07/21/22 [History Last Taken 07/20/22] bisacodyl 10 mg rectal suppository (Dulcolax (bisacodyl)) 10 mg CO DAILY constipation 09/10/22 [History Last Taken Unknown] mineral oil 1 ea CO DAILY PRN Constipation 09/10/22 [History Last Taken Unknown] Allergy/AdvReac Type Severity Reaction Status Date / Time Iodinated Contrast Media Allergy Anaphylaxis Verified 09/09/22 21:29 [Iodinated Contrast Media - IV Dye] nitrofurantoin AdvReac Upset Verified 09/09/22 21:29 Stomach Family History Father Heart disease Kidney stones Prostate disease Brother Kidney stones Other Cancer Peptic ulcer disease Surgical History S/P release of urethral stricture 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 Social History household members: family Smoking Status: Never smoker alcohol intake: never substance use type: does not use ROS ROS Narrative Review of systems was unobtainable due to patient's lethargy and somnolence, information was obtained from patient's sister who was in the room at the time of my examination Cardiovascular Cardiovascular: Denies claudication, edema or palpitations Respiratory/Chest Respiratory/Chest: Denies cough, hemoptysis, shortness of breath at rest or shortness of breath with exertion Gastrointestinal Gastrointestinal: Denies abdominal pain, constipation, diarrhea, hematemesis, hematochezia, melena, nausea or vomiting Genitourinary Genitourinary: Denies dysuria, hematuria, urinary frequency, urinary hesitancy, urinary incontinence or urinary urgency Musculoskeletal Musculoskeletal: Denies back pain, joint pain, joint stiffness, joint swelling, myalgias or neck pain Neurologic Neurologic: Denies abnormal gait, abnormal speech, dizziness, focal weakness, headache(s), loss of vision, numbness, other visual disturbances, paresthesias, syncope or tingling Psychiatric Psychiatric: Denies anxiety, cognitive impairment, depression, irritability, mood swings or suicidal ideation Endocrine Endocrinology: Denies change in body appearance, cold intolerance, excessive sweating, heat intolerance, polydipsia or polyuria Hematologic/Lymphatic Hematologic/Lymphatic: Denies none, anemia, easy bleeding, easy bruising or lymphadenopathy Allergic/Immunologic Allergic/Immunologic: Denies rhinitis, urticaria, eczemia or asthma Vital Signs Vital Signs Vital Signs: 09/09/22 21:28 09/09/22 23:59 09/10/22 02:19 Temperature 97.8 F Temperature Source Temporal Pulse Rate 113 H Respiratory Rate 18 18 Blood Pressure 136/84 H 92/38 L Blood Pressure Mean 101 56 Blood Pressure Source Blood Pressure Position Blood Pressure Location Pulse Ox 95 Oxygen Delivery Method Room Air 09/10/22 03:38 09/10/22 05:13 09/10/22 07:08 Temperature Temperature Source Pulse Rate 87 78 Respiratory Rate 18 18 Blood Pressure 121/75 H 102/77 105/69 Blood Pressure Mean 90 85 81 Blood Pressure Source Blood Pressure Position Blood Pressure Location Pulse Ox 97 93 Oxygen Delivery Method Room Air Room Air 09/10/22 07:28 09/10/22 08:00 09/10/22 09:41 Temperature 98.7 F 98.0 F Temperature Source Temporal Oral Pulse Rate 87 83 Respiratory Rate 14 16 Blood Pressure 105/69 117/92 H 130/82 H Blood Pressure Mean 81 100 98 Blood Pressure Source Monitor Blood Pressure Position Semi-Fowlers Blood Pressure Location Right Arm Pulse Ox 96 95 99 Oxygen Delivery Method Room Air Room Air Room Air 09/10/22 15:23 Temperature 97.9 F Temperature Source Oral Pulse Rate 82 Respiratory Rate 14 Blood Pressure 116/74 Blood Pressure Mean 88 Blood Pressure Source Monitor Blood Pressure Position Semi-Fowlers Blood Pressure Location Left Arm Pulse Ox 97 Oxygen Delivery Method Room Air Weight Weight: 54.6 kg Body Mass Index (BMI) 21.3 Physical Exam Narrative Patient is lethargic, he awakens to verbal and painful stimuli, he does not carry on conversation HEENT normocephalic, head/scalp atraumatic and hearing grossly normal bilaterally Eyes PERRL and EOMs intact bilaterally Neck supple and no JVD Resp normal respiratory effort, no retractions, no use of accessory muscles and clear to auscultation bilaterally Cardio regular rate, regular rhythm, S1 normal heart sound, S2 normal heart sound, no murmurs and no rub GI GI Narrative: Patient is abdomen is soft, bowel sounds are absent, abdomen does not appear to be distended, patient has an NG tube in place Neuro CN's II-XII intact bilaterally Neuro Narrative: Patient is alert but somnolent, he responds appropriately to verbal stimuli but does not carry on a conversation Psych Psych Narrative: Affect is dull Results Lab / Micro Data Result Diagrams: 09/11/22 05:05 09/11/22 05:05 Labs: Laboratory Results - last 24 hr 09/09/22 21:50: WBC 18.2 H, RBC 5.68, Hgb 16.9 H, Hct 47.7, MCV 84.0, MCH 29.8, MCHC 35.4, RDW Std Deviation 41.0, RDW Coeff of Frieda 13.3, Plt Count 366, MPV 10.2, Immature Gran % (Auto) 0.200, Neut % (Auto) 87.5 H, Lymph % (Auto) 4.8 L, [place] % (Auto) 7.1, Eos % (Auto) 0.1, Baso % (Auto) 0.3, Absolute Neuts (auto) 15.9 H, Absolute Lymphs (auto) 0.88, Nucleated RBC % 0 09/09/22 21:50: Sodium 126 L, Potassium 3.5, Chloride 92 L, Carbon Dioxide 22.0, Anion Gap 12, BUN 17, Creatinine 1.18, Estim Creat Clear Calc 54.64, Est GFR (MDRD) Af Amer 83, Est GFR (MDRD) Non-Af 68, BUN/Creatinine Ratio 14.4, Glucose 141 H, Calcium 9.8, Total Bilirubin 0.70, AST 14 L, ALT 21, Alkaline Phosphatase 83, Total Protein 9.2 H, Albumin 4.3, Globulin 4.9 H, Albumin/Globulin Ratio 0.9, Lipase 91 09/09/22 21:58: Urine Color Yellow, Urine Clarity Cloudy, Urine pH 6.5, Ur Specific [place] 1.015, Urine Protein 500 H, Urine Glucose (UA) Normal, Urine Ketones 15 H, Urine Occult Blood 250 H, Urine Nitrite Positive H, Urine Bilirubin Negative, Urine Urobilinogen Normal, Ur Leukocyte Esterase 500 H, Urine RBC 25-50 SEEN, Urine WBC >100 SEEN, Ur Squamous Epith Cells 0 SEEN, Urine Bacteria 3+, Urine Mucus 0 SEEN 09/09/22 22:15: Lactic Acid 1.6 Micro: Microbiology 09/09/22 23:14 Urine, Catheterized Urine Culture - Preliminary 09/10/22 02:04 Nasal Secretion SARS-CoV-2 Antigen (Rapid) - Final Radiology Impression KUB X-Ray 09/10/22 02:19 IMPRESSION: 1. Transesophageal catheter is new in the interval. Side port is below the GE junction and tip is at the proximal stomach. 2. No other changes from before. Electronically Signed: Abdirahman Patterson MD at 2:45 EDT , Abdomen CT 09/10/22 22:01 IMPRESSION: Bladder calculi with bladder diverticula to exclude herniation of the left bladder diverticulum into the inguinal canal. There is inflammation about the herniated diverticulum raising for infection/inflammation/ischemia. Electronically Signed: Abdirahman Patterson MD at 1:29 EDT , Assessment & Plan Assessment/Plan (1) Nausea and vomiting: PLAN: Plan 1. Adynamic ileus-patient had NG tube inserted in the emergency room, he will be admitted to [place] [address] and surgery has seen him in consultation. Patient will remain n.p.o. at this time he will be given IV fluids. #2 catheter associated urinary tract infection-it seems likely the patient has a urinary tract infection, he does have a chronic Bowman in place so it is difficult to tell but he did have some lower abdominal pain on initial examination. Patient has had a history of ESBL organisms, I have elected to place him on meropenem for now, patient was here recently went home on Bactrim DS with ESBL in the urine. #3 nausea and vomiting secondary to #1-patient currently is not vomiting, he has an NG tube in place #4 chronic gastroparesis-complicates management, care, recovery, and prognosis. Charges/Coding Visit Charges Inpatient E&M: 69842 Init Hosp L3
--- NOTE | 2022-09-10 22:01 | CT_ITS ---
EXAM: CT ABDOMEN AND PELVIS WITHOUT INTRAVENOUS CONTRAST CLINICAL INDICATION: Abdominal pain -- IV PO Contrast TECHNIQUE: Helically acquired images were obtained of the abdomen and pelvis without intravenous contrast. CTDIvol = ( 8.61 ) mGy, DLP = ( 479.79 ) mGycm This CT exam was performed using one or more of the following dose reduction techniques: automated exposure control, adjustment of the mA and/or kV according to patient size, and/or use of iterative reconstruction technique. This report was created using [employer] Number report [employer] technology. CONTRAST: Oral Gastrografin COMPARISON: None. FINDINGS: LOWER THORAX: Unremarkable. Lung bases are clear. No cardiomegaly. No significant pericardial effusion. ABDOMEN: LIVER: Unremarkable. Homogeneous. GALLBLADDER AND BILE DUCTS: Unremarkable. No calcified gallstones. No gallbladder distention or wall edema. No intra- or extrahepatic biliary ductal dilation. PANCREAS: Unremarkable. No focal cystic mass. SPLEEN: Unremarkable. Normal size without focal cystic or solid mass. ADRENALS: Unremarkable. No nodules. KIDNEYS AND URETERS: Exophytic left renal cyst posteriorly. Left renal calyceal pelvis measuring 7 mm, nonobstructing. Question left renal sinus region cyst. Normal renal size and position. STOMACH AND BOWEL: No colitis, diverticulitis or bowel obstruction. PELVIS: APPENDIX: No evidence of acute appendicitis. BLADDER: Bladder I and right posterior bladder diverticulum, also containing calcified. Anterior bladder wall thickening. Bladder catheter in place. REPRODUCTIVE: Unremarkable as visualized. No mass. ABDOMEN and PELVIS: INTRAPERITONEAL SPACE: No free air, pneumatosis or portal venous gas. No ascites or other fluid collection. 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 Severe degenerative changes are noted at this pseudoarticulation. No suspicious lytic or blastic abnormality. SOFT TISSUES: Fat-containing right inguinal hernia. Large inguinal hernia contains what appears to be a diverticulum arising from the left aspect of the bladder and containing intraluminal calculi. There is stranding within the left inguinal hernia raising concern infection or ischemia. VASCULATURE: Unremarkable. Abdominal aorta is non-dilated. LYMPH NODES: Unremarkable. No enlarged lymph nodes. TUBES, LINES AND DEVICES: Shunt catheter identified with no adjacent or fluid collections. CT/Abdomen/Pel W ORAL Cont Only IMPRESSION: Bladder calculi with bladder diverticula to exclude herniation of the left bladder diverticulum into the inguinal canal. There is inflammation about the herniated diverticulum raising for infection/inflammation/ischemia. Electronically Signed: Abdirahman Patterson MD at 1:29 EDT ,
[2022-09-10] MEDS: Heparin Injection (Vial) 5,000 UNIT/ML VIAL 5000 UNIT SC (23:02)
[2022-09-11 02:51] VITALS: BP 128/76; PULSE 85; RESP 18; TEMP 36.8; O2SAT 96
[2022-09-11] MEDS: 0.9% Normal Saline 1,000 ML 150 ML IV ×2 (03:01→11:25)
[2022-09-11] MEDS: Baclofen 10 MG Tablet 5 MG PO ×3 (05:33→23:18)
[2022-09-11 06:03] LABS: Absolute Lymphocyte Count 1.67 X10^3/uL (0.83-4.51); Absolute Neutrophil Count 6.4 X10^3/uL (2.0-7.7); Basophil# 0.02 X10^3/uL; Basophil% 0.2 % (0-1); Eosinophil# 0.01 X10^3/uL; Eosinophils% 0.1 % (0-5); Hematocrit 35.4 % (40-54); Hemoglobin 11.8 g/dL (13.0-16.5); Lymphocyte # 1.67 X10^3/ul (0.83-4.51); Lymphocyte % 17.7 % (19-41); Mean Corp Hgb Conc 33.3 g/dL (32-36); Mean Corpuscular Hgb 29.4 pg (27.0-32.0); Mean Corpuscular Volume 88.3 fL (80-94); Mean Platelet Vol. 10.1 fl (6.2-12.0); Monocyte% 13.8 % (0-10); NRBC Flagged by Analyzer 0 % (0-5); Neutrophil # 6.43 X10^3/uL (2.7-7.7); Platelet Count 275 K/mm3 (150-450); RBC Distribution Width CV 13.8 % (11.6-14.6); RBC Distribution Width SD 44.6 fl (35.1-43.9); Red Blood Count 4.01 M/mm3 (4.6-6.2); White Blood Count 9.5 K/mm3 (4.4-11.0)
[2022-09-11 06:45] LABS: Anion Gap 12 (5-15); BUN 14 mg/dL (7-18); BUN/Creat Ratio 22.8 RATIO (10-20); Calcium,Total 7.9 mg/dL (8.5-10.1); Chloride 105 mmol/L (98-107); Creatinine, Serum 0.61 mg/dL (0.70-1.30); EST Glomerular Filtration Rate 145 mL/min (>60); Est Glom Filt Rate - Afr Amer 176 mL/min (>60); Estimated Creatinine Clearance 106.91 ml/min; Glucose 83 mg/dL (74-106); Potassium 3.1 mmol/L (3.5-5.1); Sodium Level 139 mmol/L (136-145)
[2022-09-11 08:03] VITALS: BP 135/78; PULSE 93; RESP 18; TEMP 36.6; O2SAT 98
--- NOTE | 2022-09-11 08:06 | PN.SURG_ITS ---
Subjective Subjective Patient states he had some flatus. Denies any abdominal pain. Objective Data Objective Data Vital Signs: Vital Signs Temp Pulse Resp BP Pulse Ox O2 Del Method 97.9 F 93 18 135/78 H 98 Room Air 09/11/22 08:03 09/11/22 08:03 09/11/22 08:03 09/11/22 08:03 09/11/22 08:03 09/11/22 08:03 Oxygen Delivery Method Room Air Weight: 120 lb 5.958 oz Body Mass Index (BMI) 21.3 Intake & Output: Intake and Output for Last 24 Hours 09/09/22 09/10/22 09/11/22 23:59 23:59 23:59 Intake Total 2322.5 / 2322.5 1185 / 1185 Output Total 2725 / 4275 2750 / 2750 Balance -402.5 / -1952.5 -1565 / -1565 Lab / Micro Data Result Diagrams: 09/11/22 05:05 09/11/22 05:05 Labs: Laboratory Results - last 24 hr 09/11/22 05:05: WBC 9.5, RBC 4.01 L, Hgb 11.8 L, Hct 35.4 L, MCV 88.3 D, MCH 29.4, MCHC 33.3 D, RDW Std Deviation 44.6 H, RDW Coeff of Frieda 13.8, Plt Count 275, MPV 10.1, Immature Gran % (Auto) 0.200, Neut % (Auto) 68.0, Lymph % (Auto) 17.7 L, Lipscomb % (Auto) 13.8 H, Eos % (Auto) 0.1, Baso % (Auto) 0.2, Absolute Neuts (auto) 6.4, Absolute Lymphs (auto) 1.67, Nucleated RBC % 0 09/11/22 05:05: Sodium 139, Potassium 3.1 L, Chloride 105, Carbon Dioxide 22.0, Anion Gap 12, BUN 14, Creatinine 0.61 L, Estim Creat Clear Calc 106.91, Est GFR (MDRD) Af Amer 176, Est GFR (MDRD) Non-Af 145, BUN/Creatinine Ratio 22.8 H, Glucose 83, Calcium 7.9 L 09/11/22 05:05: Magnesium 2.0 Micro: Microbiology 09/09/22 23:14 Urine, Catheterized Urine Culture - Preliminary 09/10/22 02:04 Nasal Secretion SARS-CoV-2 Antigen (Rapid) - Final Physical Exam Const no apparent distress Constitutional Narrative: NG in place minimal in the container Resp normal respiratory effort Cardio regular rate GI soft to palpation and non-tender GI Narrative: Reduced inguinal hernia on exam. Assessment & Plan Assessment/Plan (1) Inguinal hernia: (2) Bladder diverticulum: (3) Nausea and vomiting: (4) Abdominal pain: PLAN: Plan Patient is having flatus minimal output from the NG will DC NG. Okay for clears will advance as tolerated Patient denies any abdominal pain. Patient's inguinal hernia is reduced on exam. Continue medical management for UTI. Dorene Ruiz M.D. Pager: [phone] [facility] [address] [place] [address], [facility], [address] [place] [id number] Office: [phone] Charges/Coding Visit Charges Inpatient E&M: 26546 Subs Hosp L2
[2022-09-11] MEDS: Potassium Chloride Oral Soln 20 MEQ/15 ML UDC 60 MEQ NG (08:11)
--- NOTE | 2022-09-11 11:07 | PN.HOSP_ITS ---
Subjective Subjective Patient was seen and Ament today, he is alert and does not appear in any distress, he denies any abdominal pain, his NG tube was removed today he has been passing flatus. Urine culture results are pending at this time, patient remains on IV antibiotics. Patient's diet will be advanced per surgery. I talked briefly with general surgery about his care today. Objective Data Objective Data Vital Signs: Vital Signs Temp Pulse Resp BP Pulse Ox O2 Del Method 97.9 F 93 18 135/78 H 98 Room Air 09/11/22 08:03 09/11/22 08:03 09/11/22 08:03 09/11/22 08:03 09/11/22 08:03 09/11/22 08:03 Oxygen Delivery Method Room Air Weight: 54.6 kg Body Mass Index (BMI) 21.3 Intake & Output: Intake and Output for Last 24 Hours 09/09/22 09/10/22 09/11/22 23:59 23:59 23:59 Intake Total 2322.5 / 2322.5 1960 / 1959 Output Total 2725 / 4275 2750 / 2750 Balance -402.5 / -1952.5 -790 / -790 Lab / Micro Data Result Diagrams: 09/11/22 05:05 09/11/22 05:05 Labs: Laboratory Results - last 24 hr 09/11/22 05:05: WBC 9.5, RBC 4.01 L, Hgb 11.8 L, Hct 35.4 L, MCV 88.3 D, MCH 29.4, MCHC 33.3 D, RDW Std Deviation 44.6 H, RDW Coeff of Frieda 13.8, Plt Count 275, MPV 10.1, Immature Gran % (Auto) 0.200, Neut % (Auto) 68.0, Lymph % (Auto) 17.7 L, King % (Auto) 13.8 H, Eos % (Auto) 0.1, Baso % (Auto) 0.2, Absolute Neuts (auto) 6.4, Absolute Lymphs (auto) 1.67, Nucleated RBC % 0 09/11/22 05:05: Sodium 139, Potassium 3.1 L, Chloride 105, Carbon Dioxide 22.0, Anion Gap 12, BUN 14, Creatinine 0.61 L, Estim Creat Clear Calc 106.91, Est GFR (MDRD) Af Amer 176, Est GFR (MDRD) Non-Af 145, BUN/Creatinine Ratio 22.8 H, Glucose 83, Calcium 7.9 L 09/11/22 05:05: Magnesium 2.0 Micro: Microbiology 09/09/22 23:14 Urine, Catheterized Urine Culture - Preliminary GNR lactose vp director of creative strategy Gram negative kennedy 09/10/22 02:04 Nasal Secretion SARS-CoV-2 Antigen (Rapid) - Final Physical Exam Const alert, oriented x3 and no apparent distress HEENT head/scalp atraumatic Head and Scalp: normocephalic Mouth: dry mucous membranes Eyes PERRL, EOMs intact bilaterally and conjunctivae normal Neck supple and no JVD Resp normal respiratory effort, no retractions, no use of accessory muscles and clear to auscultation bilaterally Cardio regular rate, regular rhythm, S1 normal heart sound, S2 normal heart sound, no murmurs and no rub GI normal to inspection, nondistended, normoactive bowel sounds, soft to palpation, non-tender and non-distended Extremity Extremity Narrative: Patient has atrophy of the lower extremities Neuro oriented x3, CN's II-XII intact bilaterally, moves all extremities and no focal motor deficits Neuro Narrative: Patient has a slow speech pattern, he is appropriate and answers questions appropriately Sensorium / Orientation: awake, alert, oriented to person, oriented to place and oriented to time Psych affect normal Assessment & Plan Assessment/Plan (1) Abdominal pain: PLAN: Plan 1. Adynamic ileus-resolved at this time, patient is NG tube was taken out this morning, he is passing flatus, he was placed on a clear liquid diet by surgery. #2 catheter associated urinary tract infection-again we are awaiting the final identification of the bacteria, patient remains on meropenem at this time #3 chronic gastroparesis-complicates care, management, recovery, and prognosis Charges/Coding Visit Charges Inpatient E&M: 75505 Subs Hosp L2
[2022-09-11 11:22] VITALS: O2SAT 96
[2022-09-11] MEDS: Heparin Injection (Vial) 5,000 UNIT/ML VIAL 5000 UNIT SC ×2 (11:27→23:18)
[2022-09-11] MEDS: Bisacodyl 10 MG Suppository RC (12:41)
[2022-09-11 14:00] VITALS: BP 136/88; PULSE 87; RESP 18; TEMP 36.7; O2SAT 97
[2022-09-11] MEDS: Nystatin Powder 15gm Bottle 1 APPLIC TOPICAL ×2 (17:08→23:21)
[2022-09-11] MEDS: 0.9% Normal Saline 1,000 ML 100 ML IV (21:41)
[2022-09-11 23:09] VITALS: BP 145/78; PULSE 93; RESP 18; TEMP 36.9; O2SAT 94
[2022-09-11 23:12] VITALS: BP 145/78; PULSE 93; RESP 18; TEMP 36.9; O2SAT 94
[2022-09-11] MEDS: 0.9% Saline Lock 10 ML Syringe IV (23:18)
[2022-09-12 05:00] VITALS: BP 136/83; PULSE 83; RESP 20; TEMP 36.7; O2SAT 95
[2022-09-12 05:30] VITALS: BP 136/83; PULSE 83; RESP 20; TEMP 36.7; O2SAT 95
[2022-09-12] MEDS: Baclofen 10 MG Tablet 5 MG PO ×2 (05:38→13:14)
[2022-09-12] MEDS: Nystatin Powder 15gm Bottle 1 APPLIC TOPICAL ×2 (06:12→13:15)
[2022-09-12 06:50] LABS: Anion Gap 6 (5-15); BUN 4 mg/dL (7-18); BUN/Creat Ratio 7.1 RATIO (10-20); Calcium,Total 8.4 mg/dL (8.5-10.1); Chloride 101 mmol/L (98-107); Creatinine, Serum 0.56 mg/dL (0.70-1.30); EST Glomerular Filtration Rate 161 mL/min (>60); Est Glom Filt Rate - Afr Amer 195 mL/min (>60); Estimated Creatinine Clearance 116.46 ml/min; Glucose 107 mg/dL (74-106); Potassium 3.8 mmol/L (3.5-5.1); Sodium Level 133 mmol/L (136-145)
--- NOTE | 2022-09-12 08:51 | PN.SURG_ITS ---
Subjective Subjective Currently having breakfast and tolerating regular diet. Patient did have bowel movements yesterday as well. denies any abdominal pain. Objective Data Objective Data Vital Signs: Vital Signs Temp Pulse Resp BP Pulse Ox O2 Del Method 98.1 F 83 20 H 136/83 H 95 Room Air 09/12/22 05:30 09/12/22 05:30 09/12/22 05:30 09/12/22 05:30 09/12/22 05:30 09/12/22 05:30 Oxygen Delivery Method Room Air Weight: 120 lb 5.958 oz Body Mass Index (BMI) 21.3 Intake & Output: Intake and Output for Last 24 Hours 09/10/22 09/11/22 09/12/22 23:59 23:59 23:59 Intake Total 2322.5 / 2322.5 3245.0 / 3305.0 60 / 60 Output Total 2725 / 4275 6275 / 6275 900 / 900 Balance -402.5 / -1952.5 -3030.0 / -2970.0 -840 / -840 Lab / Micro Data Result Diagrams: 09/11/22 05:05 09/12/22 05:20 Labs: Laboratory Results - last 24 hr 09/12/22 05:20: Sodium 133 L, Potassium 3.8, Chloride 101, Carbon Dioxide 26.0, Anion Gap 6, BUN 4 L, Creatinine 0.56 L, Estim Creat Clear Calc 116.46, Est GFR (MDRD) Af Amer 195, Est GFR (MDRD) Non-Af 161, BUN/Creatinine Ratio 7.1 L, Glucose 107 H, Calcium 8.4 L Micro: Microbiology 09/09/22 23:15 Blood Culture (Wb) - Left Hand Blood Culture - Preliminary No growth in 48 hours. 09/09/22 23:00 Blood Culture (Wb) - Right Hand Blood Culture - Preliminary No growth in 48 hours. 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 Assessment & Plan Assessment/Plan (1) Inguinal hernia: (2) Bladder diverticulum: (3) Nausea and vomiting: (4) Abdominal pain: PLAN: Plan Patient tolerated clears currently on regular diet ok to d/c per surgery if jordan PO. Dorene Ruiz M.D. Pager: [phone] [facility] [address] [place] [address], [address] [place] [address] Office: [phone] Charges/Coding Visit Charges Inpatient E&M: 00375 Subs Hosp L2
[2022-09-12] MEDS: 0.9% Normal Saline 1,000 ML 100 ML IV (09:43)
[2022-09-12 11:00] VITALS: PULSE 82; RESP 18; O2SAT 98
--- NOTE | 2022-09-12 11:04 | DCINST_ITS ---
Discharge Instructions Diet Discharge Diet: No restrictions Activity Discharge Activity: Return to Normal Activity Follow Up Care Test Results: Test results from this visit will be discussed in further detail at your follow- up appointment, if applicable. Discharge Plan Admission Admit Date/Time: 09/10/22 10:26 Primary Reason for Your Visit: ileus, cystitis Attending Provider: Geo Mercer Primary Care Provider: Lyndon Sanders Consulting Providers: Dorene Ruiz Discharge Orders/Prescriptions Prescriptions: New ciprofloxacin HCl 500 mg tablet 500 mg PO BID Qty: 10 0RF Rx Instructions: one twice a day for 5 days starting today Continued Linzess 72 mcg capsule 145 mcg PO DAILY Label Comments: TAKE 1 CAP BY MOUTH ONCE DAILY ON EMPTY STOMACH SWALLOW WHOLE DO NOT CHEW/CRUSH baclofen 5 MG tablet 5 mg PO TID Rx Instructions: Hold for sedation/lethargy bisacodyl [Dulcolax (bisacodyl)] 10 mg Suppository 10 mg WA DAILY mineral oil Enema 1 ea WA DAILY PRN (Reason: Constipation) Referrals / Follow Up: Lyndon Sanders MD [Primary Care Provider] - Within 2 Weeks Disposition Disposition (needs filled in before D/C Order can be placed): Home, Self Care
--- NOTE | 2022-09-12 11:08 | DS.PCM_ITS ---
Providers Date of Admission: 09/10/22 Date of Discharge: 09/12/22 Primary Care Physician: Dr. Lyndon Sanders MD Consultations 09/10/22 13:16 Consult: General Surgery Routine Consulting Provider: Dorene Ruiz Reason for Consult: ileus, abdominal pain EMERGENT Consult: No MD Notified: Yes Date Notified: 09/10/22 Time Notified: 10:39 Method of Notification: Verbal Reason For Visit: VOMITTING, UTI Diagnosis Discharge Diagnosis (1) Inguinal hernia: Status: Acute Code(s): K40.90 - Unilateral inguinal hernia, without obstruction or gangrene, not specified as recurrent (2) Bladder diverticulum: Status: Acute Code(s): N32.3 - Diverticulum of bladder (3) Nausea and vomiting: Status: Acute Code(s): R11.2 - Nausea with vomiting, unspecified (4) Abdominal pain: Status: Acute Code(s): R10.9 - Unspecified abdominal pain Plan 1. Adynamic ileus-resolved at this time, patient is NG tube was taken out this morning, he is passing flatus, he was placed on a clear liquid diet by surgery. #2 catheter associated urinary tract infection with Citrobacter and Proteus #3 chronic gastroparesis-complicates care, management, recovery, and prognosis Medications at Discharge Home Medications linaclotide 72 mcg capsule (Linzess) 145 mcg PO DAILY constipation 07/31/21 baclofen 5 mg tablet 5 mg PO TID spasms 07/21/22 bisacodyl 10 mg rectal suppository (Dulcolax (bisacodyl)) 10 mg MN DAILY constipation 09/10/22 mineral oil 1 ea MN DAILY PRN Constipation 09/10/22 ciprofloxacin HCl 500 mg tablet 500 mg PO BID #10 tabs 09/12/22 Hospital Course Operations None Procedures None Summary of Care Provided Minutes Spent on Discharge: 32 Hospital Course: This 56-year-old white male was seen in the emergency room at [facility] to complain of nausea and vomiting and lower abdominal pain, work-up in the emergency room showed the patient have an elevated white blood cell count, surgery was contacted initially due to concerns about an incarcerated bladder diverticulum but it was felt ultimately that the patient had an adynamic ileus. NG tube was inserted, patient was also felt to have a urinary tract infection-he has a chronic Bowman catheter and he is prone to frequent urinary tract infections. Patient was admitted to [place] [address], given IV fluids, NG tube suction was maintained and he was seen in consultation by surgery. Patient was started on meropenem, cultures finally resulted in Citrobacter and Proteus. Patient's ileus spontaneously resolved, NG tube was removed and he was transition to regular diet. Patient's white count improved. On 09/12/2022, patient was seen and examined:alert, oriented x3 and no apparent distress HEENT head/scalp atraumatic Head and Scalp: normocephalic Mouth: dry mucous membranes Eyes PERRL, EOMs intact bilaterally and conjunctivae normal Neck supple and no JVD Resp normal respiratory effort, no retractions, no use of accessory muscles and clear to auscultation bilaterally Cardio regular rate, regular rhythm, S1 normal heart sound, S2 normal heart sound, no murmurs and no rub GI normal to inspection, nondistended, normoactive bowel sounds, soft to palpation, non-tender and non-distended Extremity Extremity Narrative: Patient has atrophy of the lower extremities Neuro oriented x3, CN's II-XII intact bilaterally, moves all extremities and no focal motor deficits Neuro Narrative: Patient has a slow speech pattern, he is appropriate and answers questions appropriately Sensorium / Orientation: awake, alert, oriented to person, oriented to place and oriented to time Psych affect normal Patient was felt to be medically stable for discharge on 09/12/2022. Weight / BMI Weight Weight: 54.6 kg Body Mass Index (BMI) 21.3 ABG / Lab / Microbiology Data Result Diagrams: 09/11/22 05:05 09/12/22 05:20 Laboratory: Laboratory Results - last 24 hr 09/12/22 05:20: Sodium 133 L, Potassium 3.8, Chloride 101, Carbon Dioxide 26.0, Anion Gap 6, BUN 4 L, Creatinine 0.56 L, Estim Creat Clear Calc 116.46, Est GFR (MDRD) Af Amer 195, Est GFR (MDRD) Non-Af 161, BUN/Creatinine Ratio 7.1 L, Glucose 107 H, Calcium 8.4 L Microbiology: Microbiology 09/09/22 23:14 Urine, Catheterized Urine Culture - Final Citrobacter freundii Proteus mirabilis 09/09/22 23:15 Blood Culture (Wb) - Left Hand Blood Culture - Preliminary No growth in 48 hours. 09/09/22 23:00 Blood Culture (Wb) - Right Hand Blood Culture - Preliminary No growth in 48 hours. 09/10/22 02:04 Nasal Secretion SARS-CoV-2 Antigen (Rapid) - Final D/C Instructions Discharge Diet: No restrictions Meaningful Use Info Meaningful Use Diagnoses (Choose all that apply): None applicable Discharge Plan Admission Admit Date/Time: 09/10/22 10:26 Primary Reason for Your Visit: ileus, cystitis Attending Provider: Geo Mercer Primary Care Provider: Lyndon Sanders Consulting Providers: Dorene Ruiz Discharge Orders/Prescriptions Prescriptions: New ciprofloxacin HCl 500 mg tablet 500 mg PO BID Qty: 10 0RF Rx Instructions: one twice a day for 5 days starting today Continued Linzess 72 mcg capsule 145 mcg PO DAILY Label Comments: TAKE 1 CAP BY MOUTH ONCE DAILY ON EMPTY STOMACH SWALLOW WHOLE DO NOT CHEW/CRUSH baclofen 5 MG tablet 5 mg PO TID Rx Instructions: Hold for sedation/lethargy bisacodyl [Dulcolax (bisacodyl)] 10 mg Suppository 10 mg MN DAILY mineral oil Enema 1 ea MN DAILY PRN (Reason: Constipation) Referrals / Follow Up: Lyndon Sanders MD [Primary Care Provider] - Within 2 Weeks Disposition Disposition (needs filled in before D/C Order can be placed): Home, Self Care Charges/Coding Visit Charges Inpatient E&M: 01381 Disch Hosp
[2022-09-12 11:15] VITALS: BP 136/81; PULSE 82; RESP 18; TEMP 36.6; O2SAT 98
[2022-09-12 11:23] VITALS: O2SAT 96
[2022-09-12] MEDS: Menthol/Lanolin/Calamine/Znox 113 GM Tube 1 APPLIC TOPICAL (11:38)
[2022-09-12] MEDS: Bisacodyl 10 MG Suppository RC (11:45)
[2022-09-12] MEDS: Heparin Injection (Vial) 5,000 UNIT/ML VIAL 5000 UNIT SC (11:45)
[2022-09-12 13:20] VITALS: BP 139/80; PULSE 94; RESP 18; TEMP 36.6; O2SAT 98
== END 2022-09-12 14:56 | disposition home health service (06) | DRG 699 ==
LOC: ED 09-10 08:03 → MS3 09-10 08:39
PROVIDERS: Surgery; Admitting Provider Internal Medicine; Emergency Provider Emergency Medicine; PCP Family Medicine; Visit Provider Internal Medicine
DX: T83.511A Infection and inflammatory reaction due to indwelling urethral catheter, initial encounter (principal); K56.0 Paralytic ileus; Q03.9 Congenital hydrocephalus, unspecified; K40.90 Unilateral inguinal hernia, without obstruction or gangrene, not specified as recurrent; I10 Essential (primary) hypertension; K31.84 Gastroparesis; N39.0 Urinary tract infection, site not specified; R33.9 Retention of urine, unspecified; N32.3 Diverticulum of bladder; B96.4 Proteus (mirabilis) (morganii) as the cause of diseases classified elsewhere; Z98.2 Presence of cerebrospinal fluid drainage device
CPT/HCPCS: 36415; 74018; 74176; 80048; 80053; 81001; 83605; 83690; 83735; 85025; 87040; 87077; 87086; 87088; 87186; 87811; 96365; 96366; 96367; 96375; 99284; J2185; J7030; A4216; J2405; J3490

== ENCOUNTER 2022-09-19 19:18 | Inpatient (IN) | payer MEDICARE, MEDICAID, SELFPAY ==
[2022-09-19 19:19] VITALS: BP 136/95; PULSE 118; RESP 20; TEMP 36.6; O2SAT 98; BMI 21.0
[2022-09-19 19:21] VITALS: BP 136/95; PULSE 118; RESP 20; TEMP 36.6; O2SAT 98
--- NOTE | 2022-09-19 19:37 | EX.ED.DYSGE1 ---
HPI History of Present Illness Chief Complaint: Nausea/Vomiting Detail of Chief Complaint: Nausea vomiting abdominal pain with distention Informant: patient and family Onset/Context/Timing Onset: Today (Hours prior to presentation) Context: Sudden Onset Timing: Intermittent and Waxes and wanes Quality: 10-minute of vomiting followed by several small episodes Location: GI Current Severity: Mild Maximum Severity: Moderate Worsened by: Nothing Relieved by: Nothing Associated Symptoms Associated Symptoms: Abdominal distention Narrative Narrative: Patient is a 56-year-old male with history of catheter associated urinary tract infection, ileus, bladder diverticulum, inguinal hernia and gastric paresis. Apparently there is a gastric mass per review of old records. Review of the H&P performed by the emergency physician and by the admitting physician does not indicate there is a gastric mass. Apparently the bladder diverticulum was noted in the inguinal area and there was associated inflammation. Patient did receive his care here and was not transferred to [facility]. Parents state he was discharged past Tuesday. This evening he abruptly had nausea and vomiting that was persistent and lasted 10 minutes. He now reports mild abdominal discomfort with distention. There are no exacerbating precipitating or alleviating factors. His last bowel movement was today. He is passing gas. He has an indwelling Bowman. Prior similar symptoms: Yes Recent Illness/Hospitalization: Yes [facility] Medical History Chronic indwelling Bowman catheter Fever Gastroparesis History of urinary retention Hydrocephalus Hypertension Hyponatremia Ileus Kidney stones Seizures Home Medications linaclotide 72 mcg capsule (Linzess) 145 mcg PO DAILY constipation 07/31/21 [History Last Taken 07/20/22] baclofen 5 mg tablet 5 mg PO TID spasms 07/21/22 [History Last Taken 07/20/22] Allergy/AdvReac Type Severity Reaction Status Date / Time Iodinated Contrast Media Allergy Anaphylaxis Verified 09/09/22 21:29 [Iodinated Contrast Media - IV Dye] nitrofurantoin AdvReac Upset Verified 09/09/22 21:29 Stomach Family History Father Heart disease Kidney stones Prostate disease Brother Kidney stones Other Cancer Peptic ulcer disease Surgical History S/P release of urethral stricture S/P RECREATIONAL SPECIALIST shunt Social History household members: family Smoking Status: Never smoker alcohol intake: never substance use type: does not use ROS ROS ED Constitutional Constitutional ED: Denies chills, fever(s), subjective, sweats or weight loss Eyes Eyes: Denies blurry vision, change in vision or diplopia ENT ENT ED: Denies ear pain, rhinorrhea or sore throat Cardiovascular Cardiovascular: Denies chest pain or palpitations Respiratory/Chest Respiratory/Chest: Denies cough, dyspnea or dyspnea on exertion Gastrointestinal Gastrointestinal: Reports abdominal pain, nausea and vomiting; Denies constipation, diarrhea or melena Genitourinary Genitourinary ED: Reports other Details: Patient has an indwelling Bowman. Musculoskeletal Musculoskeletal: Denies arthralgias, back pain, myalgias or neck pain Integumentary Denies Abrasions or rash Neurologic Neurologic: Denies headache(s) or paresthesias Hematologic/Lymphatic Hematologic/Lymphatic: Denies anemia, easy bleeding or easy bruising EXAM Physical Exam Const Vital Signs: 09/19/22 19:19 09/19/22 19:21 09/19/22 21:30 Temperature 97.8 F 97.8 F Temperature Source Temporal Temporal Pulse Rate 118 H 118 H 101 H Respiratory Rate 20 H 20 H 18 Blood Pressure 136/95 H 136/95 H 138/97 H Blood Pressure Mean 108 108 110 Pulse Ox 98 98 95 Oxygen Delivery Method Room Air Room Air Room Air 09/19/22 22:11 Temperature Temperature Source Pulse Rate 90 Respiratory Rate 17 Blood Pressure 138/106 H Blood Pressure Mean 116 Pulse Ox Oxygen Delivery Method Positive well nourished, well developed and unkempt General Appearance ED: unkempt, well developed and NAD HEENT Reports dry mucous membranes HEENT Narrative: Head is atraumatic. Ears normal. Nares patent. Uvula midline. No deviation of protrusion. Mouth ED: Yes dry mucous membranes Mouth: dry mucous membranes Eyes PERRL and EOMs intact bilaterally General Eye ED: Negative for pale conjunctiva or scleral icterus Neck no lymphadenopathy, supple and no JVD Resp normal respiratory effort and clear to auscultation bilaterally Cardio regular rhythm, S1 normal heart sound, S2 normal heart sound and no murmurs Rate: tachycardic GI normal to inspection, nondistended, normoactive bowel sounds, non-tender, non-distended and no masses; Negative for hepatosplenomegaly Back/Spine no CVA tenderness Cervical Spine: Negative for cervical spine tenderness Thoracic Spine / Upper Back: Negative for thoracic spinal tenderness Lumbar Spine / Lower Back: Negative for lumbar spinal tenderness Extremity General Extremety ED: Negative for edema or tenderness General Extremity: Negative for edema Neuro oriented x3 and CN's II-XII intact bilaterally Sensorium / Orientation: alert Psych mental status grossly normal Appearance: unkempt Skin no rashes or lesions noted, no wounds and skin turgor normal MDM MDM MDM Narrative Medical decision making narrative: Patient has history of ileus with recent admission and discharge from [facility]. Since his abdomen is distended he had nausea and vomiting obtain abdominal x-rays to determine there is evidence of obstruction. His abdominal exam is unremarkable. Clinically is dehydrated. Will obtain basic metabolic panel to assess renal function, CO2 anion gap and electrolytes. CBC was obtained since he had recent infection with inflammation of his inguinal hernia/bladder diverticulum. He was medicated with Zofran for his nausea and vomiting. 1 L of normal saline was ordered. Lab Data Attestation: I reviewed the patient's lab results. Lab results narrative: CBC is remarkable white count of 16.9 thousand with slight shift. There is no bandemia. Basic metabolic panel is remarkable for hyponatremia. Slightly worse than blood work obtained on September 12. Labs: Laboratory Results - last 24 hr 09/19/22 09/19/22 19:50 19:50 WBC 16.9 H RBC 5.50 Hgb 16.0 Hct 46.9 MCV 85.3 MCH 29.1 MCHC 34.1 RDW Std Deviation 41.8 RDW Coeff of Frieda 13.4 Plt Count 550 H MPV 9.4 Immature Gran % (Auto) 0.400 Neut % (Auto) 77.0 H Lymph % (Auto) 12.1 L Todd % (Auto) 9.8 Eos % (Auto) 0.4 Baso % (Auto) 0.3 Absolute Neuts (auto) 13.1 H Absolute Lymphs (auto) 2.04 Nucleated RBC % 0 Differential Comment SCANNED Diff Path Review May foll Sodium 129 L Potassium 3.7 Chloride 91 L Carbon Dioxide 26.0 Anion Gap 12 BUN 14 Creatinine 0.76 Estim Creat Clear Calc 84.83 Est GFR (MDRD) Af Amer 137 Est GFR (MDRD) Non-Af 113 BUN/Creatinine Ratio 18.4 Glucose 128 H Calcium 10.1 Radiography Chest X-Ray - ED: Read by ED Physician (3 view abdominal series was obtained which included a chest portion. As well as KUB and upright. Patient has a ventricular peritoneal shunt noted. The cardiac silhouette and size is unremarkable. There is no abnormality of the lung parenchyma. Perihilar region looks normal. The abdominal porti) Diagnostic Testing: Clinical Impression(s) from Imaging Studies Acute Abdomen Series 09/19/22 20:40 IMPRESSION: 1. Right-sided ventriculoperitoneal shunt. 2. No active pulmonary disease. 3. Mildly dilated small bowel and colon. Electronically Signed: Evangelista Beatty MD at 21:18 EST , Treatment and Re-Evaluation Narrative: Patient did receive a liter of fluids. He has made little urine. His heart rate has improved from 1 18-90. Additional liter of normal saline was ordered. The Zofran initially did not help. He was treated with IV Reglan. His nausea and vomiting stopped. Discharge Plan Triage Chief Complaint: Nausea/Vomiting ED Provider: Parvez Moore Dx/Rx/DC Orders Prescriptions: No Action Linzess 72 mcg capsule 145 mcg PO DAILY Label Comments: TAKE 1 CAP BY MOUTH ONCE DAILY ON EMPTY STOMACH SWALLOW WHOLE DO NOT CHEW/CRUSH baclofen 5 MG tablet 5 mg PO TID Rx Instructions: Hold for sedation/lethargy Primary Care Provider: Lyndon Sanders Referrals: Lyndon Sanders MD [Primary Care Provider] -
[2022-09-19] MEDS: 0.9% Normal Saline 1,000 ML 1000 ML IV ×2 (19:49→23:10)
[2022-09-19] MEDS: Ondansetron 4 MG/2 ML Vial IV (19:53)
[2022-09-19 19:56] LABS: Absolute Lymphocyte Count 2.04 X10^3/uL (0.83-4.51); Absolute Neutrophil Count 13.1 X10^3/uL (2.0-7.7); Basophil# 0.05 X10^3/uL; Basophil% 0.3 % (0-1); Eosinophil# 0.06 X10^3/uL; Eosinophils% 0.4 % (0-5); Hematocrit 46.9 % (40-54); Lymphocyte # 2.04 X10^3/ul (0.83-4.51); Lymphocyte % 12.1 % (19-41); Mean Corp Hgb Conc 34.1 g/dL (32-36); Mean Corpuscular Hgb 29.1 pg (27.0-32.0); Mean Corpuscular Volume 85.3 fL (80-94); Mean Platelet Vol. 9.4 fl (6.2-12.0); Monocyte# 1.65 X10^3/uL; Monocyte% 9.8 % (0-10); NRBC Flagged by Analyzer 0 % (0-5); Neutrophil # 13.05 X10^3/uL (2.7-7.7); POSITIVE DIFFERENTIAL YES; Platelet Count 550 K/mm3 (150-450); RBC Distribution Width CV 13.4 % (11.6-14.6); RBC Distribution Width SD 41.8 fl (35.1-43.9); White Blood Count 16.9 K/mm3 (4.4-11.0)
[2022-09-19 19:57] LABS: Differential Indicated SCAN CRITERIA MET
[2022-09-19 20:08] LABS: Anion Gap 12 (5-15); BUN 14 mg/dL (7-18); BUN/Creat Ratio 18.4 RATIO (10-20); Calcium,Total 10.1 mg/dL (8.5-10.1); Chloride 91 mmol/L (98-107); Creatinine, Serum 0.76 mg/dL (0.70-1.30); EST Glomerular Filtration Rate 113 mL/min (>60); Est Glom Filt Rate - Afr Amer 137 mL/min (>60); Estimated Creatinine Clearance 84.83 ml/min; Glucose 128 mg/dL (74-106); Potassium 3.7 mmol/L (3.5-5.1); Sodium Level 129 mmol/L (136-145)
[2022-09-19 20:18] LABS: Differential Comment SCANNED
--- NOTE | 2022-09-19 20:40 | RAD_ITS ---
STUDY: X-RAY - ACUTE ABDOMINAL SERIES REASON FOR EXAM: Male, 56 years old. Pain TECHNIQUE: Single view of the chest. Supine, and erect view(s) of the abdomen were obtained. COMPARISON: None. FINDINGS: Right-sided ventricular peritoneal shunt appears intact. The lungs are clear and expanded. Normal size heart. Normal mediastinum and mike. Normal visualized pulmonary arteries. Normal visualized aortic arch and descending thoracic aorta. Mildly dilated small bowel and colon. The soft tissue structures of the abdomen and pelvis are unremarkable. Normal visualized osseous structures. RAD/Acute Abdomen Inc Chest IMPRESSION: 1. Right-sided ventriculoperitoneal shunt. 2. No active pulmonary disease. 3. Mildly dilated small bowel and colon. Electronically Signed: Evangelista Beatty MD at 21:18 EST ,
[2022-09-19 21:30] VITALS: BP 138/97; PULSE 101; RESP 18; O2SAT 95
[2022-09-19] MEDS: Metoclopramide 10 MG/2 ML Vial 5 MG IV (21:57)
[2022-09-19 22:11] VITALS: BP 138/106; PULSE 90; RESP 17
[2022-09-20] VITALS (11 sets, daily range): BP systolic 103–131; BP diastolic 62–98; PULSE 62–106; RESP 16–18; TEMP 36.6–37.4; O2SAT 94–98; BMI 20.8
--- NOTE | 2022-09-20 | CT_ITS ---
INDICATION: Nausea vomiting persistent history of SBO EXAMINATION: CT ABDOMEN AND PELVIS WITHOUT CONTRAST - CT Abdomen And Pelvis W/O Contrast Injection TECHNIQUE: Helically acquired images were obtained of the abdomen and pelvis without oral or IV contrast. A radiation dose optimization technique was used for this scan. IV Contrast dosage and agent: None. Oral contrast: None. COMPARISON: September 10, 2022 CT. abdominal radiograph September 19, 2022. FINDINGS: LOWER CHEST: Mild dependent atelectasis. Lung bases are clear. No cardiomegaly or pericardial effusion. LIVER: Homogeneous. No focal mass. GALLBLADDER AND BILIARY TREE: No calcified gallstones. No gallbladder distension or wall edema. No intra- or extrahepatic biliary ductal dilation. PANCREAS: No focal cystic or solid mass. SPLEEN: Normal size without focal cystic or solid mass. ADRENAL GLANDS: No nodules. KIDNEYS AND URETERS: Left renal 2 cm exophytic cyst, and follow-up required. Nonobstructive 5 mm left renal stone. No hydronephrosis. Left kidney is rotated leftward. Unremarkable ureters. Dependent stones within the bladder. Bulky calcification likely within right posterior bladder diverticulum. Bladder decompressed by Bowman catheter. Prostate enlarged at 5.4 cm transverse. Bladder with small dependent stone extends into the left inguinal fat-containing hernia. Right inguinal fat containing hernia also noted. PERITONEUM: Anterior peritoneal shunt noted. Trace perihepatic ascites. No free air. No other fluid collection. BOWEL: Enteric tube extends into distended fluid and air-filled stomach. Diffuse proximal and mid small bowel distention. Transition to decompressed distal small bowel in the central abdomen, axial image 111. Appendix is not seen. No right lower quadrant inflammation to suggest appendicitis. Large rectal stool collection. No gross colonic wall thickening. LYMPH NODES: No enlarged mesenteric or retroperitoneal lymph nodes. VESSELS: Aorta is non-dilated. BONES: Severe left hip osteoarthritis with femoral acetabular osseous remodeling and cephalad subluxation. Mild to moderate right hip osteoarthritis. No lytic or blastic abnormality. CT/Abdomen/Pelvis without Cont IMPRESSION: Findings consistent with distal small bowel obstruction with transition in the midabdomen. Large rectal stool collection. Bilateral inguinal hernias, continuing to contain bladder on the left with mild surrounding inflammation. Inflammation is less extensive than seen September 10, 2022. Dependent stones within the bladder and right posterior bladder diverticulum. Nonobstructive left nephrolithiasis. Electronically Signed: Beck Mcgovern MD at 1:27 EST ,
[2022-09-20] MEDS: Lidocaine Jelly 2% 20 ML Syringe (URO-JET) 1 APPLIC TOPICAL (00:05)
--- NOTE | 2022-09-20 02:10 | PCM.HP.STD ---
HPI - General General Date of Admission: 09/20/22 Date of Service: 09/20/22 Chief Complaint: Intractable nausea and vomiting HPI Narrative JIAN ALTAMIRANO, is a 56 M who presented department [facility] on 05/19/2022 with intractable nausea and vomiting that started at approximately 6 PM. Patient was just recently admitted here from 09/10/2022 [id number]/2022 through 09/12/2022 for bowel obstruction at that time. Family states that there is some theory that he has some scar from his CONSERVATION BIOLOGY PROFESSOR shunt that intermittently causes obstruction. Family indicated that typically they noticed his urine output drops some prior to him developing obstructions. It appears that last admission his symptoms resolved with conservative management however he was only discharged 1 week ago today. He was also found to have a urinary tract infection at that time and does have a known history of bladder stones for which he follows with urology in [place]. Family is not aware when his last visit was however. He has just completed his antibiotics yesterday for his UTI found at his last admission. Since presenting he had ongoing episodes of nausea and vomiting and an NG tube had to be placed. He has had several bouts of symptoms as above that have caused presentation however it does not appear that he is required any surgical intervention previously. Family is concerned because they do feel that these becoming more frequently occurring. Vital signs on presentation showed a temperature of 97.8, heart rate 118, blood pressure 136/95, respiratory rate is 20, pulse ox is 98% on room air. His tachycardia did improve after the NG tube was placed as did his blood pressure. CBC shows a leukocytosis and a thrombocytosis with a white count of 16.9 and a platelet count of 550,000 respectively. His chemistry panel shows hyponatremia at 129 however he does have intermittent issues with chronic hyponatremia. Blood glucose level was 128. His lab is otherwise unremarkable. Acute abdominal series was performed and showed right-sided CONSERVATION BIOLOGY PROFESSOR shunt, no active pulmonary disease and a mildly dilated small bowel and colon. A CT of the abdomen pelvis was then performed and demonstrated findings consistent with a distal small bowel obstruction having a transition point in the mid abdomen, large rectal stool collection, bilateral inguinal hernia continuing to contain bladder on the left with mild surrounding inflammation however inflammation has improved since September 10, 2022 scan, dependent stones within the bladder and right posterior bladder diverticulum, nonobstructive left nephrolithiasis that is stable. After NG tube placement the emergency department his vital signs improved dramatically. He was also given pain medication and antiemetics. General surgery was contacted by the emergency department physician and they recommended admission with consultation to them. [facility] Medical History Bladder diverticulum Catheter-associated urinary tract infection Chronic indwelling Bowman catheter Fever Gastroparesis History of urinary retention Hydrocephalus Hypertension Hyponatremia Ileus Inguinal hernia Kidney stones Seizures Home Medications linaclotide 72 mcg capsule (Linzess) 145 mcg PO DAILY constipation 07/31/21 [History Last Taken 07/20/22] baclofen 5 mg tablet 5 mg PO TID spasms 07/21/22 [History Last Taken 07/20/22] Allergy/AdvReac Type Severity Reaction Status Date / Time Iodinated Contrast Media Allergy Anaphylaxis Verified 09/09/22 21:29 [Iodinated Contrast Media - IV Dye] nitrofurantoin AdvReac Upset Verified 09/09/22 21:29 Stomach Family History Father Heart disease Kidney stones Prostate disease Brother Kidney stones Other Cancer Peptic ulcer disease Surgical History S/P release of urethral stricture S/P CONSERVATION BIOLOGY PROFESSOR shunt Social History household members: family Smoking Status: Never smoker alcohol intake: never substance use type: does not use ROS Review of Systems ROS Unobtainable: due to mental condition Vital Signs Vital Signs Vital Signs: 09/19/22 19:19 09/19/22 19:21 09/19/22 21:30 Temperature 97.8 F 97.8 F Temperature Source Temporal Temporal Pulse Rate 118 H 118 H 101 H Respiratory Rate 20 H 20 H 18 Blood Pressure 136/95 H 136/95 H 138/97 H Blood Pressure Mean 108 108 110 Pulse Ox 98 98 95 Oxygen Delivery Method Room Air Room Air Room Air 09/19/22 22:11 09/20/22 00:09 Temperature Temperature Source Pulse Rate 90 106 H Respiratory Rate 17 18 Blood Pressure 138/106 H 131/95 H Blood Pressure Mean 116 107 Pulse Ox 96 Oxygen Delivery Method Room Air Weight Weight: 53.977 kg Body Mass Index (BMI) 21.0 Physical Exam Const Constitutional Narrative: Middle-aged white male sleeping, appears comfortable and not restless, family at bedside, nontoxic HEENT normocephalic and head/scalp atraumatic HEENT Narrative: Dentition is fair, Mallampati is 2, no thrush, mucous membranes are slightly dry, NG tube in place and has put out 2 L of fluid thus far Eyes PERRL and conjunctivae normal Eyes Narrative: No scleral icterus Neck no lymphadenopathy and supple Neck Narrative: Trachea midline, no thyroid enlargement Resp normal respiratory effort, no retractions, no use of accessory muscles and clear to auscultation bilaterally Auscultation: Negative for crackles, rales, rhonchi or wheezes Cardio regular rate, regular rhythm, S1 normal heart sound, S2 normal heart sound, no murmurs, no rub, no gallops and no clicks GI GI Narrative: No distention, abdomen is soft no tenderness at this time Auscultation: hypoactive bowel sounds Extremity no clubbing, cyanosis or edema Extremity Narrative: Decreased lean muscle mass Skin no rashes or lesions noted, no wounds, skin turgor normal, no jaundice, no petechiae and no mottling Neuro Neuro Narrative: Patient moves all extremities spontaneously, sleeping at this time difficult to obtain complete neurological exam Psych Psych Narrative: Unable to assess Results Lab / Micro Data Result Diagrams: 09/19/22 19:50 09/19/22 19:50 Labs: Laboratory Results - last 24 hr 09/19/22 19:50: WBC 16.9 H, RBC 5.50, Hgb 16.0, Hct 46.9, MCV 85.3, MCH 29.1, MCHC 34.1, RDW Std Deviation 41.8, RDW Coeff of Frieda 13.4, Plt Count 550 H, MPV 9.4, Immature Gran % (Auto) 0.400, Neut % (Auto) 77.0 H, Lymph % (Auto) 12.1 L, [place] % (Auto) 9.8, Eos % (Auto) 0.4, Baso % (Auto) 0.3, Absolute Neuts (auto) 13.1 H, Absolute Lymphs (auto) 2.04, Nucleated RBC % 0, Differential Comment SCANNED, Diff Path Review March09/19/22 19:50: Sodium 129 L, Potassium 3.7, Chloride 91 L, Carbon Dioxide 26.0, Anion Gap 12, BUN 14, Creatinine 0.76, Estim Creat Clear Calc 84.83, Est GFR (MDRD) Af Amer 137, Est GFR (MDRD) Non-Af 113, BUN/Creatinine Ratio 18.4, Glucose 128 H, Calcium 10.1 Radiology Impression Acute Abdomen Series 09/19/22 20:40 IMPRESSION: 1. Right-sided ventriculoperitoneal shunt. 2. No active pulmonary disease. 3. Mildly dilated small bowel and colon. Electronically Signed: Evangelista Beatty MD at 21:18 EST , Abdomen/Pelvis CT 09/20/22 00:00 IMPRESSION: Findings consistent with distal small bowel obstruction with transition in the midabdomen. Large rectal stool collection. Bilateral inguinal hernias, continuing to contain bladder on the left with mild surrounding inflammation. Inflammation is less extensive than seen September 10, 2022. Dependent stones within the bladder and right posterior bladder diverticulum. Nonobstructive left nephrolithiasis. Electronically Signed: Beck Mcgovern MD at 1:27 EST , ADDENDUM: 09/20/22 0141 IMPRESSION: Findings consistent with distal small bowel obstruction with transition in the midabdomen. Large rectal stool collection. Bilateral inguinal hernias, continuing to contain bladder on the left with mild surrounding inflammation. Inflammation is less extensive than seen September 10, 2022. Dependent stones within the bladder and right posterior bladder diverticulum. Nonobstructive left nephrolithiasis. N.B. : Wesley Lynn RN, confirmed on 09/20/2022 01:33:09 (ET) that the healthcare facility has received the radiology report. Electronically Signed: Beck Mcgovern MD at 1:27 EST , Assessment & Plan Assessment/Plan (1) Abdominal pain, acute, generalized: (2) Small bowel obstruction: (3) Sinus tachycardia: (4) Bladder diverticulum: (5) Bladder stones: PLAN: Plan Small bowel obstruction -Has had these periodically -Evidently had neurological damage to the nerves that supply the gastrointestinal tract during a CONSERVATION BIOLOGY PROFESSOR shunt placement -Also concerned that scarring from CONSERVATION BIOLOGY PROFESSOR shunt placement complicated this as well -N.p.o. -NG tube in place to low intermittent suction -Continue IV fluids -As needed pain medication -Antiemetics -Consult to general surgery Sinus tachycardia -Improving -Likely related to above and discomfort Bladder diverticulum/bladder stones/inguinal hernia containing bladder -Check UA as patient does have frequent UTIs -Bladder stones would complicate this -Consult urology Chronic hyponatremia -Slightly lower than baseline -Suspect this was related to nausea and vomiting and dehydration -IV fluids as above -Repeat BMP in a.m. Leukocytosis/thrombocytosis -Unclear if this is just related to stress response or if actual infection -UA pending as patient has history of recurrent UTIs -If UA is suggestive of urinary tract infection will start antibiotics next-patient has just completed antibiotics for UTI that was discovered at his last admission on 09/10/2022. -Repeat CBC in a.m. Congenital hydrocephalus -Status post CONSERVATION BIOLOG[employer] PROFESSOR shunt placement -Appears clinically stable at this time -Last CONSERVATION BIOLOGY PROFESSOR shunt intervention was a repair at age of 19 History of seizures -Patient family reports that his last seizure was related to CONSERVATION BIOLOG[employer] PROFESSOR shunt malfunction he is not on any chronic medications Bilateral inguinal hernia -General surgery consultation DVT prophylaxis -Subcu Lovenox -SCDs CODE STATUS -Full code Charges/Coding Visit Charges Inpatient E&M: 74881 Init Hosp L3
[2022-09-20 03:05] LABS: Color, Urine Yellow (Yellow); Glucose, Dipstick Normal (Normal); Ketone-Dipstick 5 mg/dl (Negative); Leukocyte Esterase-Dipstick 500 /ul (Negative); Nitrite-Dipstick Positive (Negative); Occult Blood-Urine 150 /ul (Negative); Protein-Dipstick 100 mg/dl (Negative); Specific Gravity, Urine 1.015 (1.002-1.030); Urine Bilirubin Dipstick Negative (Negative); Urine Clarity Sl. Cloudy (Clear); Urine Urobilinogen Normal (Normal)
[2022-09-20] MEDS: 0.9% Saline Lock 10 ML Syringe IV (04:56)
[2022-09-20] MEDS: Lactated Ringers 1,000 ML 100 ML IV ×2 (04:56→14:41)
--- NOTE | 2022-09-20 07:07 | EX.PCM.CON.S ---
Assessment & Plan Assessment/Plan (1) Small bowel obstruction: PLAN: Patient has had multiple hospital admissions for abdominal pain and partial small bowel obstruction/ileus. His last admission and discharge was 09/12. He presents with similar symptoms. Hopefully this will resolve with IV hydration, NG tube decompression, and supportive care. Continue present therapy. PLAN: Plan see above HPI Consult Data Date of Consult: 09/21/22 HPI Narrative Reason for Consultation: abdominal pain HPI Narrative: I was asked to see patient by Dr. Diane Franco in consultation for this patient's abdominal pain. JIAN ALTAMIRANO, is a 56 M who presents with abdominal pain. He has had multiple hospitalization and ER visits for bowel and urinary problems. He was hospitalized recently for ileus from 09/10-09/12. He was hospitalized for UTI with ileus from 08/10-08/14. He was hospitalized for ileus from 07/21-07/25. He was hospitalized from 01/19-01/24. Patient appears to have long standing history of poor intestinal motility. He is on Linzess for chronic constipation. He had a colonoscopy in 2020 which revealed tortuous colon with redundancy. It was also atonic without noticeable peristalsis during examination. He also has known gastroparesis. He has a SWINGING CUT OFF SAW OPERATOR shunt in place for hydrocephalus and he has spina bifida. He denies previous abdominal surgeries. Presently, he states that he feels improved after NG tube placed. [facility] Medical History Bladder diverticulum Catheter-associated urinary tract infection Chronic indwelling Bowman catheter Fever Gastroparesis History of urinary retention Hydrocephalus Hypertension Hyponatremia Ileus Inguinal hernia Kidney stones Seizures Home Medications linaclotide 72 mcg capsule (Linzess) 145 mcg PO DAILY constipation 07/31/21 [History Last Taken 07/20/22] baclofen 5 mg tablet 5 mg PO TID spasms 07/21/22 [History Last Taken 07/20/22] Allergy/AdvReac Type Severity Reaction Status Date / Time Iodinated Contrast Media Allergy Anaphylaxis Verified 09/09/22 21:29 [Iodinated Contrast Media - IV Dye] nitrofurantoin AdvReac Upset Verified 09/09/22 21:29 Stomach Family History Father Heart disease Kidney stones Prostate disease Brother Kidney stones Other Cancer Peptic ulcer disease Surgical History S/P release of urethral stricture S/P SWINGING CUT OFF SAW OPERATOR shunt Social History household members: family Smoking Status: Never smoker alcohol intake: never substance use type: does not use ROS Constitutional Constitutional: Denies fever(s) or weight gain Gastrointestinal Gastrointestinal: Reports abdominal pain and constipation Genitourinary Genitourinary: Reports difficulty urinating Musculoskeletal Musculoskeletal: Reports systems reviewed and no addt'l complaints, except as documented Integumentary Integumentary: Denies jaundice Physical Exam Const alert and oriented x3 General Appearance: cooperative HEENT HEENT Narrative: NG tube in place Eyes Eyes Narrative: left eye stray Neck supple Resp normal respiratory effort Effort and Inspection: able to speak in complete sentences GI GI Narrative: abdomen is soft and benign, not distended Lab / Micro Data Attestation: I reviewed the patient's lab results. Result Diagrams: 09/21/22 05:46 09/21/22 05:46 Labs: Laboratory Results - last 24 hr 09/19/22 19:50: WBC 16.9 H, RBC 5.50, Hgb 16.0, Hct 46.9, MCV 85.3, MCH 29.1, MCHC 34.1, RDW Std Deviation 41.8, RDW Coeff of Frieda 13.4, Plt Count 550 H, MPV 9.4, Immature Gran % (Auto) 0.400, Neut % (Auto) 77.0 H, Lymph % (Auto) 12.1 L, [place] % (Auto) 9.8, Eos % (Auto) 0.4, Baso % (Auto) 0.3, Absolute Neuts (auto) 13.1 H, Absolute Lymphs (auto) 2.04, Nucleated RBC % 0, Differential Comment SCANNED, Diff Path Review March09/19/22 19:50: Sodium 129 L, Potassium 3.7, Chloride 91 L, Carbon Dioxide 26.0, Anion Gap 12, BUN 14, Creatinine 0.76, Estim Creat Clear Calc 84.83, Est GFR (MDRD) Af Amer 137, Est GFR (MDRD) Non-Af 113, BUN/Creatinine Ratio 18.4, Glucose 128 H, Calcium 10.1 09/20/22 02:47: Urine Color Yellow, Urine Clarity Sl. Cloudy, Urine pH 6.0, Ur Specific [place] 1.015, Urine Protein 100 H, Urine Glucose (UA) Normal, Urine Ketones 5 H, Urine Occult Blood 150 H, Urine Nitrite Positive H, Urine Bilirubin Negative, Urine Urobilinogen Normal, Ur Leukocyte Esterase 500 H Radiology Impression Acute Abdomen Series 09/19/22 20:40 IMPRESSION: 1. Right-sided ventriculoperitoneal shunt. 2. No active pulmonary disease. 3. Mildly dilated small bowel and colon. Electronically Signed: Evangelista Beatty MD at 21:18 EST , Abdomen/Pelvis CT 09/20/22 00:00 IMPRESSION: Findings consistent with distal small bowel obstruction with transition in the midabdomen. Large rectal stool collection. Bilateral inguinal hernias, continuing to contain bladder on the left with mild surrounding inflammation. Inflammation is less extensive than seen September 10, 2022. Dependent stones within the bladder and right posterior bladder diverticulum. Nonobstructive left nephrolithiasis. Electronically Signed: Beck Mcgovern MD at 1:27 EST , ADDENDUM: 09/20/22 0141 IMPRESSION: Findings consistent with distal small bowel obstruction with transition in the midabdomen. Large rectal stool collection. Bilateral inguinal hernias, continuing to contain bladder on the left with mild surrounding inflammation. Inflammation is less extensive than seen September 10, 2022. Dependent stones within the bladder and right posterior bladder diverticulum. Nonobstructive left nephrolithiasis. N.B. : Wesley Lynn RN, confirmed on 09/20/2022 01:33:09 (ET) that the healthcare facility has received the radiology report. Electronically Signed: Beck Mcgovern MD at 1:27 EST ,
[2022-09-20 09:14] LABS: Absolute Lymphocyte Count 1.23 X10^3/uL (0.83-4.51); Absolute Neutrophil Count 13.3 X10^3/uL (2.0-7.7); Basophil# 0.03 X10^3/uL; Basophil% 0.2 % (0-1); Eosinophil# 0.01 X10^3/uL; Eosinophils% 0.1 % (0-5); Hematocrit 44.2 % (40-54); Hemoglobin 15.3 g/dL (13.0-16.5); Lymphocyte # 1.23 X10^3/ul (0.83-4.51); Lymphocyte % 7.6 % (19-41); Mean Corp Hgb Conc 34.6 g/dL (32-36); Mean Corpuscular Hgb 29.8 pg (27.0-32.0); Mean Corpuscular Volume 86.2 fL (80-94); Mean Platelet Vol. 9.3 fl (6.2-12.0); Monocyte# 1.53 X10^3/uL; Monocyte% 9.5 % (0-10); NRBC Flagged by Analyzer 0 % (0-5); Neutrophil # 13.34 X10^3/uL (2.7-7.7); Neutrophil % 82.3 % (47-70); POSITIVE DIFFERENTIAL YES; Platelet Count 521 K/mm3 (150-450); RBC Distribution Width CV 13.7 % (11.6-14.6); RBC Distribution Width SD 43.4 fl (35.1-43.9); Red Blood Count 5.13 M/mm3 (4.6-6.2); White Blood Count 16.2 K/mm3 (4.4-11.0)
[2022-09-20 09:17] LABS: Differential Indicated SCAN CRITERIA MET
[2022-09-20] MEDS: Enoxaparin 40 MG/0.4 ML Syringe SC (09:39)
[2022-09-20 10:08] LABS: ALB/GLOB Ratio 0.8 RATIO (0.9-2.4); AST(SGOT) 9 U/L (15-37); Alanine Aminotransfer ALT/SGPT 17 U/L (16-61); Albumin, Serum 3.4 g/dL (3.2-5.0); Alkaline Phosphatase 69 U/L (45-117); Anion Gap 9 (5-15); BUN 20 mg/dL (7-18); BUN/Creat Ratio 23.2 RATIO (10-20); Calcium,Total 9.5 mg/dL (8.5-10.1); Chloride 93 mmol/L (98-107); Creatinine, Serum 0.86 mg/dL (0.70-1.30); EST Glomerular Filtration Rate 98 mL/min (>60); Est Glom Filt Rate - Afr Amer 119 mL/min (>60); Estimated Creatinine Clearance 74.03 ml/min; Globulin 4.4 g/dL (2.2-4.2); Glucose 119 mg/dL (74-106); Magnesium 2.3 mg/dL (1.6-2.6); Phosphorus 4.5 mg/dL (2.5-4.9); Potassium 4.1 mmol/L (3.5-5.1); Protein, Total 7.8 g/dL (6.4-8.2); Sodium Level 130 mmol/L (136-145); Thyroid Stim Hormone (TSH) 0.98 uIU/mL (0.358-3.74)
--- NOTE | 2022-09-20 10:08 | CON.PCM.UR_ITS ---
HPI Consult Data Date of Consult: 09/21/22 HPI Narrative HPI Narrative: JIAN ALTAMIRANO, is a 56 M who presents with a partial small bowel obstruction CT scan was done also demonstrates very large stone in the bladder and also a large diverticulum with a stone within the diverticulum he certainly would benefit from having the stone diverticulum removed and probably prostate surgery to address this situation however the stone is so large that endoscopic management would be futile, best approach would be either open surgical approach to remove the stone and remove the diverticulum or my preference would be a laparoscopic robotic approach to remove the stone in the diverticulum however given his current situation with a partial small bowel obstruction this would be too risky right now out of the weight until his bowel obstruction has resolved completely. He can follow-up with me after discharge from the hospital to discuss the options of doing robotic surgery to remove his bladder stone and diverticulum. Call me with questions. [facility] Medical History Bladder diverticulum Catheter-associated urinary tract infection Chronic indwelling Bowman catheter Fever Gastroparesis History of urinary retention Hydrocephalus Hypertension Hyponatremia Ileus Inguinal hernia Kidney stones Seizures Home Medications linaclotide 72 mcg capsule (Linzess) 145 mcg PO DAILY constipation 07/31/21 [History Last Taken 07/20/22] baclofen 5 mg tablet 5 mg PO TID spasms 07/21/22 [History Last Taken 07/20/22] Allergy/AdvReac Type Severity Reaction Status Date / Time Iodinated Contrast Media Allergy Anaphylaxis Verified 09/09/22 21:29 [Iodinated Contrast Media - IV Dye] nitrofurantoin AdvReac Upset Verified 09/09/22 21:29 Stomach Family History Father Heart disease Kidney stones Prostate disease Brother Kidney stones Other Cancer Peptic ulcer disease Surgical History S/P release of urethral stricture 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 Social History household members: family Smoking Status: Never smoker alcohol intake: never substance use type: does not use Lab / Micro Data Result Diagrams: 09/21/22 05:46 09/21/22 05:46 Labs: Laboratory Results - last 24 hr 09/19/22 19:50: WBC 16.9 H, RBC 5.50, Hgb 16.0, Hct 46.9, MCV 85.3, MCH 29.1, MCHC 34.1, RDW Std Deviation 41.8, RDW Coeff of Frieda 13.4, Plt Count 550 H, MPV 9.4, Immature Gran % (Auto) 0.400, Neut % (Auto) 77.0 H, Lymph % (Auto) 12.1 L, [place] % (Auto) 9.8, Eos % (Auto) 0.4, Baso % (Auto) 0.3, Absolute Neuts (auto) 13.1 H, Absolute Lymphs (auto) 2.04, Nucleated RBC % 0, Differential Comment SCANNED, Diff Path Review March09/19/22 19:50: Sodium 129 L, Potassium 3.7, Chloride 91 L, Carbon Dioxide 26.0, Anion Gap 12, BUN 14, Creatinine 0.76, Estim Creat Clear Calc 84.83, Est GFR (MDRD) Af Amer 137, Est GFR (MDRD) Non-Af 113, BUN/Creatinine Ratio 18.4, Gl ucose 128 H, Calcium 10.1 09/20/22 02:47: Urine Color Yellow, Urine Clarity Sl. Cloudy, Urine pH 6.0, Ur Specific [place] 1.015, Urine Protein 100 H, Urine Glucose (UA) Normal, Urine Ketones 5 H, Urine Occult Blood 150 H, Urine Nitrite Positive H, Urine Bilirubin Negative, Urine Urobilinogen Normal, Ur Leukocyte Esterase 500 H 09/20/22 09:04: WBC 16.2 H, RBC 5.13, Hgb 15.3, Hct 44.2, MCV 86.2, MCH 29.8, MCHC 34.6, RDW Std Deviation 43.4, RDW Coeff of Frieda 13.7, Plt Count 521 H, MPV 9.3, Immature Gran % (Auto) 0.300, Neut % (Auto) 82.3 H, Lymph % (Auto) 7.6 L, [place] % (Auto) 9.5, Eos % (Auto) 0.1, Baso % (Auto) 0.2, Absolute Neuts (auto) 13.3 H, Absolute Lymphs (auto) 1.23, Nucleated RBC % 0, Differential Comment COMMENT, Diff Path Review May foll Radiology Impression Acute Abdomen Series 09/19/22 20:40 IMPRESSION: 1. Right-sided ventriculoperitoneal shunt. 2. No active pulmonary disease. 3. Mildly dilated small bowel and colon. Electronically Signed: Evangelista Beatty MD at 21:18 EST , Abdomen/Pelvis CT 09/20/22 00:00 IMPRESSION: Findings consistent with distal small bowel obstruction with transition in the midabdomen. Large rectal stool collection. Bilateral inguinal hernias, continuing to contain bladder on the left with mild surrounding inflammation. Inflammation is less extensive than seen September 10, 2022. Dependent stones within the bladder and right posterior bladder diverticulum. Nonobstructive left nephrolithiasis. Electronically Signed: Beck Mcgovern MD at 1:27 EST , ADDENDUM: 09/20/22 0141 IMPRESSION: Findings consistent with distal small bowel obstruction with transition in the midabdomen. Large rectal stool collection. Bilateral inguinal hernias, continuing to contain bladder on the left with mild surrounding inflammation. Inflammation is less extensive than seen September 10, 2022. Dependent stones within the bladder and right posterior bladder diverticulum. Nonobstructive left nephrolithiasis. N.B. : Wesley Lynn RN, confirmed on 09/20/2022 01:33:09 (ET) that the healthcare facility has received the radiology report. Electronically Signed: Beck Mcgovern MD at 1:27 EST ,
--- NOTE | 2022-09-20 10:50 | PCM.PN.HOSP ---
Subjective Subjective Patient seen and examined. He says he feels better since he had the NG inserted. He denied any abdominal pain and says he is passing gas but not having bowel movements. Review of systems is otherwise negative. Objective Data Objective Data Vital Signs: Vital Signs Temp Pulse Resp BP Pulse Ox O2 Del Method 98.9 F 62 16 129/88 H 98 Room Air 09/20/22 09:10 09/20/22 09:10 09/20/22 09:10 09/20/22 09:10 09/20/22 09:10 09/20/22 09:10 Oxygen Delivery Method Room Air Weight: 117 lb 8.102 oz Body Mass Index (BMI) 20.8 Intake & Output: Intake and Output for Last 24 Hours 09/19/22 09/19/22 09/20/22 00:59 23:59 23:59 Intake Total 1060 / 1060 Output Total 3600 / 3600 Balance -2540 / -2540 Lab / Micro Data Result Diagrams: 09/20/22 09:04 09/20/22 09:04 Labs: Laboratory Results - last 24 hr 09/19/22 19:50: WBC 16.9 H, RBC 5.50, Hgb 16.0, Hct 46.9, MCV 85.3, MCH 29.1, MCHC 34.1, RDW Std Deviation 41.8, RDW Coeff of Frieda 13.4, Plt Count 550 H, MPV 9.4, Immature Gran % (Auto) 0.400, Neut % (Auto) 77.0 H, Lymph % (Auto) 12.1 L, [place] % (Auto) 9.8, Eos % (Auto) 0.4, Baso % (Auto) 0.3, Absolute Neuts (auto) 13.1 H, Absolute Lymphs (auto) 2.04, Nucleated RBC % 0, Differential Comment SCANNED, Diff Path Review March09/19/22 19:50: Sodium 129 L, Potassium 3.7, Chloride 91 L, Carbon Dioxide 26.0, Anion Gap 12, BUN 14, Creatinine 0.76, Estim Creat Clear Calc 84.83, Est GFR (MDRD) Af Amer 137, Est GFR (MDRD) Non-Af 113, BUN/Creatinine Ratio 18.4, Glucose 128 H, Calcium 10.1 09/20/22 02:47: Urine Color Yellow, Urine Clarity Sl. Cloudy, Urine pH 6.0, Ur Specific [place] 1.015, Urine Protein 100 H, Urine Glucose (UA) Normal, Urine Ketones 5 H, Urine Occult Blood 150 H, Urine Nitrite Positive H, Urine Bilirubin Negative, Urine Urobilinogen Normal, Ur Leukocyte Esterase 500 H 09/20/22 09:04: WBC 16.2 H, RBC 5.13, Hgb 15.3, Hct 44.2, MCV 86.2, MCH 29.8, MCHC 34.6, RDW Std Deviation 43.4, RDW Coeff of Frieda 13.7, Plt Count 521 H, MPV 9.3, Immature Gran % (Auto) 0.300, Neut % (Auto) 82.3 H, Lymph % (Auto) 7.6 L, [place] % (Auto) 9.5, Eos % (Auto) 0.1, Baso % (Auto) 0.2, Absolute Neuts (auto) 13.3 H, Absolute Lymphs (auto) 1.23, Nucleated RBC % 0, Differential Comment COMMENT, Diff Path Review March09/20/22 09:04: Sodium 130 L, Potassium 4.1, Chloride 93 L, Carbon Dioxide 28.0, Anion Gap 9, BUN 20 H, Creatinine 0.86, Estim Creat Clear Calc 74.03, Est GFR (MDRD) Af Amer 119, Est GFR (MDRD) Non-Af 98, BUN/Creatinine Ratio 23.2 H, Glucose 119 H, Calcium 9.5, Phosphorus 4.5, Magnesium 2.3, Total Bilirubin 0.90, AST 9 L, ALT 17, Alkaline Phosphatase 69, Total Protein 7.8, Albumin 3.4, Globulin 4.4 H, Albumin/Globulin Ratio 0.8 L, TSH 0.98 Radiography Diagnostic Testing: Radiology Impression Acute Abdomen Series 09/19/22 20:40 IMPRESSION: 1. Right-sided ventriculoperitoneal shunt. 2. No active pulmonary disease. 3. Mildly dilated small bowel and colon. Electronically Signed: Evangelista Beatty MD at 21:18 EST , Abdomen/Pelvis CT 09/20/22 00:00 IMPRESSION: Findings consistent with distal small bowel obstruction with transition in the midabdomen. Large rectal stool collection. Bilateral inguinal hernias, continuing to contain bladder on the left with mild surrounding inflammation. Inflammation is less extensive than seen September 10, 2022. Dependent stones within the bladder and right posterior bladder diverticulum. Nonobstructive left nephrolithiasis. Electronically Signed: Beck Mcgovern MD at 1:27 EST , ADDENDUM: 09/20/22 0141 IMPRESSION: Findings consistent with distal small bowel obstruction with transition in the midabdomen. Large rectal stool collection. Bilateral inguinal hernias, continuing to contain bladder on the left with mild surrounding inflammation. Inflammation is less extensive than seen September 10, 2022. Dependent stones within the bladder and right posterior bladder diverticulum. Nonobstructive left nephrolithiasis. N.B. : Wesley Lynn RN, confirmed on 09/20/2022 01:33:09 (ET) that the healthcare facility has received the radiology report. Electronically Signed: Beck Mcgovern MD at 1:27 EST , Physical Exam Const alert, oriented x3 and no apparent distress Constitutional Narrative: frail HEENT head/scalp atraumatic and oropharynx normal Head and Scalp: normocephalic Mouth: dry mucous membranes Eyes PERRL Neck no lymphadenopathy and supple Resp normal respiratory effort, no retractions, no use of accessory muscles and clear to auscultation bilaterally Cardio regular rate, regular rhythm, S1 normal heart sound, S2 normal heart sound and no murmurs GI GI Narrative: NG tube in situ, draining bilious fluid. abdominal soft, minimal tenderness, few bowel sounds auscultated. Neuro oriented x3, CN's II-XII intact bilaterally, moves all extremities and no focal motor deficits Sensorium / Orientation: awake and alert Motor Exam: strength 5/5 throughout Psych affect normal Assessment & Plan Assessment/Plan (1) Small bowel obstruction: (2) Nausea and vomiting in adult patient: PLAN: Plan #Recurrent small bowel obstruction currently NPO NG tube in position, placed to low intermittent suction hydrate gently with IVF on IV zofran prn general surgery on board #Sinus tachycardia; resolved #Bladder diverticulum and kidney stones CT abdomen showed dependent stones within and right posterior bladder diverticulum urology consulted. 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 Not on any chronic meds. #Bilateral inguinal hernia: stable. DVT prophylaxis: lovenox Charges/Coding Visit Charges Inpatient E&M: 06264 [facility] Hosp L3
[2022-09-20 12:25] LABS: Pathologist Review Reviewed
[2022-09-20 12:38] LABS: Pathologist Review Reviewed
--- NOTE | 2022-09-20 12:50 | CASEMGMT ---
NEIL EATON Readmission Note Previous Admission:?09/10/22-09/12/22 ? Diagnosis:? Vomiting, UTI DC Disposition: Home with resumption of [facility]. Current Admission? Current Diagnosis:?SBO Pt presented to ER from home with N/V that lasted 10 minutes. Pt is a 56-year-old male with history of catheter associated urinary tract infection, ileus, bladder diverticulum, inguinal hernia and gastric paresis. Pt had BM day of admission. NEIL EATON in to pt room, pt lying in bed with NG in. Pt reports he had not had time to follow up with his PCP as the follow up was for in 2 weeks. Pt states he is taking his meds as ordered. His sisters are still rotating caring for him. Pt is active with [facility]. Pt states he would like to return home with [facility] and denies further homegoing needs. DC Plan: Resume [facility] SN
--- NOTE | 2022-09-20 13:28 | CASEMGMT ---
Updated Marisabel at [facility] that pt would like to resume services upon dc.
[2022-09-20] MEDS: HYDROmorphone 0.5 MG/0.5 ML SYRINGE IV (20:59)
[2022-09-21] VITALS (8 sets, daily range): BP systolic 120–148; BP diastolic 84–92; PULSE 86–90; RESP 12–16; TEMP 36.6–37.2; O2SAT 85–97
[2022-09-21] MEDS: Lactated Ringers 1,000 ML 100 ML IV ×3 (00:34→20:22)
[2022-09-21 06:11] LABS: Absolute Lymphocyte Count 2.22 X10^3/uL (0.83-4.51); Absolute Neutrophil Count 6.7 X10^3/uL (2.0-7.7); Basophil# 0.02 X10^3/uL; Basophil% 0.2 % (0-1); Eosinophil# 0.03 X10^3/uL; Eosinophils% 0.3 % (0-5); Hematocrit 36.6 % (40-54); Lymphocyte # 2.22 X10^3/ul (0.83-4.51); Lymphocyte % 21.4 % (19-41); Mean Corp Hgb Conc 32.8 g/dL (32-36); Mean Corpuscular Hgb 29.1 pg (27.0-32.0); Mean Corpuscular Volume 88.8 fL (80-94); Monocyte# 1.41 X10^3/uL; Monocyte% 13.6 % (0-10); NRBC Flagged by Analyzer 0 % (0-5); Neutrophil # 6.68 X10^3/uL (2.7-7.7); Neutrophil % 64.2 % (47-70); Platelet Count 410 K/mm3 (150-450); RBC Distribution Width SD 45.1 fl (35.1-43.9); Red Blood Count 4.12 M/mm3 (4.6-6.2); White Blood Count 10.4 K/mm3 (4.4-11.0)
--- NOTE | 2022-09-21 06:45 | NURSING ---
Patients sister called. Sister requesting that patients physician contact her. Sister also requesting case management meet with pt and herself.
--- NOTE | 2022-09-21 07:05 | PN.SURG_ITS ---
Subjective Subjective patient denies abdominal pain, not passing flatus, feels rumblings in abdomen, denies bloating Objective Data Objective Data Vital Signs: Vital Signs Temp Pulse Resp BP Pulse Ox O2 Del Method 98.5 F 88 16 120/84 H 95 Room Air 09/21/22 02:49 09/21/22 02:49 09/21/22 02:49 09/21/22 02:49 09/21/22 02:49 09/21/22 02:49 Oxygen Delivery Method Room Air Weight: 53.3 kg Body Mass Index (BMI) 20.8 Intake & Output: Intake and Output for Last 24 Hours 09/19/22 09/20/22 09/21/22 23:59 23:59 23:59 Intake Total 2095 / 2095 988.33 / 988.33 Output Total 3900 / 4050 700 / 700 Balance -1805 / -1955 288.33 / 288.33 Medical Nutrition Assessment Dietitian: Malnutrition Criteria Met Start: 09/20/22 11:01 Freq: Status: Active Protocol: Document 09/20/22 11:02 JOSE RAUL (Rec: 09/20/22 11:02 [facility] [id number]) Nutrition Malnutrition Evidence of Malnutrition Exists Yes Malnutrition (severe): Acute Illness/Injury Evidenced By Suboptimal Energy Intake ( Severe),Weight Loss (Severe), Physical Changes (Mild) Clinical Problem Acute Disease or Injury Related Malnutrition Etiology related to GI dysfunction and having decreased energy intake to meet est nutritional needs Signs/Symptoms as evidenced by NPO status w/ NG in place for wall suction, 2.4% wt loss and <50% po intake of meals x < 2 weeks. Fat/muscle loss noted w/ NFPA. Status Active Problem Recommendation Dietitian Recommendations/Changes As medically able, rec CHACORTA to Transitional diet w/ goal of liberal Regular diet Rec 8 oz ensure clear w/ meals when po diet resumes. Consider nutrition support if prolonged NPO duration (>3 days) Lab / Micro Data Result Diagrams: 09/21/22 05:46 09/21/22 05:46 Labs: Laboratory Results - last 24 hr 09/19/22 19:50: Diff Path Review Reviewed 09/20/22 09:04: WBC 16.2 H, RBC 5.13, Hgb 15.3, Hct 44.2, MCV 86.2, MCH 29.8, MCHC 34.6, RDW Std Deviation 43.4, RDW Coeff of Frieda 13.7, Plt Count 521 H, MPV 9.3, Immature Gran % (Auto) 0.300, Neut % (Auto) 82.3 H, Lymph % (Auto) 7.6 L, [place] % (Auto) 9.5, Eos % (Auto) 0.1, Baso % (Auto) 0.2, Absolute Neuts (auto) 13.3 H, Absolute Lymphs (auto) 1.23, Nucleated RBC % 0, Differential Comment COMMENT, Diff Path Review Reviewed 09/20/22 09:04: Sodium 130 L, Potassium 4.1, Chloride 93 L, Carbon Dioxide 28.0, Anion Gap 9, BUN 20 H, Creatinine 0.86, Estim Creat Clear Calc 74.03, Est GFR (MDRD) Af Amer 119, Est GFR (MDRD) Non-Af 98, BUN/Creatinine Ratio 23.2 H, Glucose 119 H, Calcium 9.5, Phosphorus 4.5, Magnesium 2.3, Total Bilirubin 0.90, AST 9 L, ALT 17, Alkaline Phosphatase 69, Total Protein 7.8, Albumin 3.4, Globulin 4.4 H, Albumin/Globulin Ratio 0.8 L, TSH 0.98 09/21/22 05:46: WBC 10.4, RBC 4.12 L, Hgb 12.0 L, Hct 36.6 L, MCV 88.8, MCH 29.1, MCHC 32.8 D, RDW Std Deviation 45.1 H, RDW Coeff of Frieda 14.0, Plt Count 410, MPV 10.0, Immature Gran % (Auto) 0.300, Neut % (Auto) 64.2, Lymph % (Auto) 21.4, [place] % (Auto) 13.6 H, Eos % (Auto) 0.3, Baso % (Auto) 0.2, Absolute Neuts (auto) 6.7, Absolute Lymphs (auto) 2.22, Nucleated RBC % 0 Physical Exam Const alert and oriented x3 General Appearance: cooperative HEENT HEENT Narrative: right head tilt Resp normal respiratory effort Effort and Inspection: able to speak in complete sentences GI GI Narrative: abdomen is soft and benign Assessment & Plan Assessment/Plan (1) Abdominal pain, acute, generalized: PLAN: see below (2) Small bowel obstruction: PLAN: see below PLAN: Plan because of retained stool in rectum - will order enema may consider repeat CT scan with gastrografin continue present therapy
[2022-09-21 07:14] LABS: Anion Gap 7 (5-15); BUN 23 mg/dL (7-18); BUN/Creat Ratio 35.3 RATIO (10-20); Calcium,Total 8.1 mg/dL (8.5-10.1); Chloride 99 mmol/L (98-107); Creatinine, Serum 0.65 mg/dL (0.70-1.30); EST Glomerular Filtration Rate 135 mL/min (>60); Est Glom Filt Rate - Afr Amer 164 mL/min (>60); Estimated Creatinine Clearance 97.94 ml/min; Glucose 100 mg/dL (74-106); Sodium Level 134 mmol/L (136-145)
[2022-09-21] MEDS: Enoxaparin 40 MG/0.4 ML Syringe SC (08:53)
--- NOTE | 2022-09-21 12:08 | PN.HOSP_ITS ---
Subjective Subjective Patient seen and examined. He has no active complaints. He had an enema yesterday but had only passed gas. NG tube is still in situ. Review of systems is otherwise negative. Objective Data Objective Data Vital Signs: Vital Signs Temp Pulse Resp BP Pulse Ox O2 Del Method 98 F 86 16 132/85 H 97 Room Air 09/21/22 10:13 09/21/22 10:13 09/21/22 10:13 09/21/22 10:13 09/21/22 10:13 09/21/22 10:13 Oxygen Delivery Method Room Air Weight: 117 lb 8.102 oz Body Mass Index (BMI) 20.8 Intake & Output: Intake and Output for Last 24 Hours 09/19/22 09/20/22 09/21/22 23:59 23:59 23:59 Intake Total 2094 / 2094 1994. / 1994. Output Total 3900 / 4050 700 / 700 Balance -1805 / -1955 1295.00 / 1295.00 Medical Nutrition Assessment Dietitian: Malnutrition Criteria Met Start: 09/20/22 11:01 Freq: Status: Active Protocol: Document 09/20/22 11:02 JOSE RAUL (Rec: 09/20/22 11:02 JOSE RAUL [id number]) Nutrition Malnutrition Evidence of Malnutrition Exists Yes Malnutrition (severe): Acute Illness/Injury Evidenced By Suboptimal Energy Intake ( Severe),Weight Loss (Severe), Physical Changes (Mild) Clinical Problem Acute Disease or Injury Related Malnutrition Etiology related to GI dysfunction and having decreased energy intake to meet est nutritional needs Signs/Symptoms as evidenced by NPO status w/ NG in place for wall suction, 2.4% wt loss and <50% po intake of meals x < 2 weeks. Fat/muscle loss noted w/ NFPA. Status Active Problem Recommendation Dietitian Recommendations/Changes As medically able, rec CHACORTA to Transitional diet w/ goal of liberal Regular diet Rec 8 oz ensure clear w/ meals when po diet resumes. Consider nutrition support if prolonged NPO duration (>3 days) Lab / Micro Data Result Diagrams: 09/21/22 05:46 09/21/22 05:46 Labs: Laboratory Results - last 24 hr 09/19/22 19:50: Diff Path Review Reviewed 09/20/22 09:04: Diff Path Review Reviewed 09/21/22 05:46: WBC 10.4, RBC 4.12 L, Hgb 12.0 L, Hct 36.6 L, MCV 88.8, MCH 29.1, MCHC 32.8 D, RDW Std Deviation 45.1 H, RDW Coeff of Frieda 14.0, Plt Count 410, MPV 10.0, Immature Gran % (Auto) 0.300, Neut % (Auto) 64.2, Lymph % (Auto) 21.4, [place] % (Auto) 13.6 H, Eos % (Auto) 0.3, Baso % (Auto) 0.2, Absolute Neuts (auto) 6.7, Absolute Lymphs (auto) 2.22, Nucleated RBC % 0 09/21/22 05:46: Sodium 134 L, Potassium 4.0, Chloride 99, Carbon Dioxide 28.0, Anion Gap 7, BUN 23 H, Creatinine 0.65 L, Estim Creat Clear Calc 97.94, Est GFR (MDRD) Af Amer 164, Est GFR (MDRD) Non-Af 135, BUN/Creatinine Ratio 35.3 H, Glucose 100, Calcium 8.1 L Physical Exam Const alert, oriented x3 and no apparent distress Constitutional Narrative: frail HEENT normocephalic, head/scalp atraumatic, moist oral mucous membranes and oropharynx normal Head and Scalp: normocephalic Mouth: dry mucous membranes Eyes PERRL, EOMs intact bilaterally and conjunctivae normal Neck no lymphadenopathy and supple Resp normal respiratory effort, no retractions, no use of accessory muscles and clear to auscultation bilaterally Auscultation: Negative for crackles, rales, rhonchi or wheezes Cardio regular rate, regular rhythm, S1 normal heart sound, S2 normal heart sound, no murmurs, no rub, no gallops and no clicks GI GI Narrative: NG tube in situ, draining bilious fluid. abdominal soft, no tenderness, few bowel sounds auscultated. Auscultation: hypoactive bowel sounds Extremity no clubbing, cyanosis or edema Skin no rashes or lesions noted, no wounds, skin turgor normal, no jaundice, no petechiae and no mottling Neuro oriented x3, CN's II-XII intact bilaterally, moves all extremities and no focal motor deficits Sensorium / Orientation: awake and alert Motor Exam: strength 5/5 throughout Psych affect normal Assessment & Plan Assessment/Plan (1) Small bowel obstruction: (2) Nausea and vomiting in adult patient: PLAN: Plan #Recurrent small bowel obstruction * still NPO * NG tube in position, placed to low intermittent suction * hydrate gently with IVF * on IV zofran prn * general surgery on board; per general surgery, to consider repeating CT scan with gastrografin. * was given an enema yesterday, but hasnt yet had a bowel movement. Is passing gas. * #Sinus tachycardia; resolved #Bladder diverticulum and kidney stones * CT abdomen showed dependent stones within and right posterior bladder diverticulum * urology consulted. Per urology, he would benefit from having the stone diverticulum removed, but stone is so large that endoscopic management would be futile; best approach would be open surgical approach or a laparoscopic robotic approach. Surgery is deemed too risky now, so to follow up with urology on outpatient basis. * * #Chronic hyponatremia: stable #Leucocytosis * resolved. 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 Stable #History of seizures * due to ASSOCIATE [employer]OR [employer] shunt malfunction. Not on any chronic meds. * #Bilateral inguinal hernia: stable. DVT prophylaxis: lovenox Charges/Coding Visit Charges Inpatient E&M: 94942 Subs Hosp L2
[2022-09-22 03:00] VITALS: BP 143/84; PULSE 91; RESP 14; TEMP 36.8; O2SAT 96
[2022-09-22 06:30] LABS: Absolute Lymphocyte Count 1.82 X10^3/uL (0.83-4.51); Basophil# 0.03 X10^3/uL; Basophil% 0.3 % (0-1); Eosinophil# 0.04 X10^3/uL; Eosinophils% 0.4 % (0-5); Hematocrit 34.6 % (40-54); Hemoglobin 11.8 g/dL (13.0-16.5); Lymphocyte # 1.82 X10^3/ul (0.83-4.51); Lymphocyte % 16.4 % (19-41); Mean Corp Hgb Conc 34.1 g/dL (32-36); Mean Corpuscular Hgb 29.6 pg (27.0-32.0); Mean Corpuscular Volume 86.9 fL (80-94); Mean Platelet Vol. 9.3 fl (6.2-12.0); Monocyte% 10.8 % (0-10); NRBC Flagged by Analyzer 0 % (0-5); Neutrophil % 71.8 % (47-70); Platelet Count 387 K/mm3 (150-450); RBC Distribution Width CV 13.3 % (11.6-14.6); RBC Distribution Width SD 42.3 fl (35.1-43.9); Red Blood Count 3.98 M/mm3 (4.6-6.2); White Blood Count 11.1 K/mm3 (4.4-11.0)
[2022-09-22] MEDS: Lactated Ringers 1,000 ML 100 ML IV ×2 (06:33→16:57)
[2022-09-22 06:57] LABS: Anion Gap 12 (5-15); BUN 10 mg/dL (7-18); BUN/Creat Ratio 20.5 RATIO (10-20); Calcium,Total 8.1 mg/dL (8.5-10.1); Chloride 96 mmol/L (98-107); Creatinine, Serum 0.49 mg/dL (0.70-1.30); EST Glomerular Filtration Rate 189 mL/min (>60); Est Glom Filt Rate - Afr Amer 229 mL/min (>60); Estimated Creatinine Clearance 129.93 ml/min; Glucose 74 mg/dL (74-106); Potassium 3.5 mmol/L (3.5-5.1); Sodium Level 131 mmol/L (136-145)
[2022-09-22 09:00] VITALS: BP 134/84; PULSE 87; RESP 17; TEMP 36.6; O2SAT 98
[2022-09-22] MEDS: Enoxaparin 40 MG/0.4 ML Syringe SC (09:38)
--- NOTE | 2022-09-22 10:48 | PN.HOSP_ITS ---
Subjective Subjective Doing well, no issues overnight. His NG tube is clamped today Objective Data Objective Data Vital Signs: Vital Signs Temp Pulse Resp BP Pulse Ox O2 Del Method 97.9 F 87 17 134/84 H 98 Room Air 09/22/22 09:00 09/22/22 09:00 09/22/22 09:00 09/22/22 09:00 09/22/22 09:00 09/22/22 09:00 Oxygen Delivery Method Room Air Weight: 117 lb 8.102 oz Body Mass Index (BMI) 20.8 Intake & Output: Intake and Output for Last 24 Hours 09/21/22 09/22/22 09/23/22 03:59 03:59 03:59 Intake Total 2083.33 / 2083.33 2066.67 / 2066.67 1060 / 1060 Output Total 950 / 950 1750 / 1750 890 / 890 Balance 1133.33 / 1133.33 316.67 / 316.67 170 / 170 Medical Nutrition Assessment Dietitian: Malnutrition Criteria Met Start: 09/20/22 11:01 Freq: Status: Active Protocol: Document 09/20/22 11:02 JOSE RAUL (Rec: 09/20/22 11:02 JOSE RAUL [id number]) Nutrition Malnutrition Evidence of Malnutrition Exists Yes Malnutrition (severe): Acute Illness/Injury Evidenced By Suboptimal Energy Intake ( Severe),Weight Loss (Severe), Physical Changes (Mild) Clinical Problem Acute Disease or Injury Related Malnutrition Etiology related to GI dysfunction and having decreased energy intake to meet est nutritional needs Signs/Symptoms as evidenced by NPO status w/ NG in place for wall suction, 2.4% wt loss and <50% po intake of meals x < 2 weeks. Fat/muscle loss noted w/ NFPA. Status Active Problem Recommendation Dietitian Recommendations/Changes As medically able, rec CHACORTA to Transitional diet w/ goal of liberal Regular diet Rec 8 oz ensure clear w/ meals when po diet resumes. Consider nutrition support if prolonged NPO duration (>3 days) Lab / Micro Data Result Diagrams: 09/22/22 06:15 09/22/22 06:15 Labs: Laboratory Results - last 24 hr 09/22/22 06:15: WBC 11.1 H, RBC 3.98 L, Hgb 11.8 L, Hct 34.6 L, MCV 86.9, MCH 29.6, MCHC 34.1, RDW Std Deviation 42.3, RDW Coeff of Frieda 13.3, Plt Count 387, MPV 9.3, Immature Gran % (Auto) 0.300, Neut % (Auto) 71.8 H, Lymph % (Auto) 16.4 L, [place] % (Auto) 10.8 H, Eos % (Auto) 0.4, Baso % (Auto) 0.3, Absolute Neuts (auto) 8.0 H, Absolute Lymphs (auto) 1.82, Nucleated RBC % 0 09/22/22 06:15: Sodium 131 L, Potassium 3.5, Chloride 96 L, Carbon Dioxide 23.0, Anion Gap 12, BUN 10, Creatinine 0.49 L, Estim Creat Clear Calc 129.93, Est GFR (MDRD) Af Amer 229, Est GFR (MDRD) Non-Af 189, BUN/Creatinine Ratio 20.5 H, Glucose 74, Calcium 8.1 L Physical Exam Narrative General: Alert, Oriented x3, Cooperative, No apparent distress HEENT: Atraumatic, PERRLA, EOMI, Normocephalic, NG tube in place but clamped Oral: Moist Mucosa Neck: Supple, No JVD Lungs: Clear to auscultation, Normal air movement, No rhonchi, No wheeze, No rales Cardiovascular: Regular rate, Regular Rhythm, Normal S1, Normal S2, No murmurs Abdomen: Soft, Non Tender, Non-Distended, No Hepato-splenomegaly Extremities: No edema, Capillary Refill Less than 3 Seconds Skin: No rashes, No breakdown Musculoskeletal: No Tenderness to Palpation of Joints or Extremities Neurological: Cranial nerves II-XII grossly intact, Motor Exam 5/5 strength throughout, Sensory exam intact to light touch and pain Psych/Mental Status: Normal Affect, Appropriate Assessment & Plan Assessment/Plan (1) Small bowel obstruction: (2) Nausea and vomiting in adult patient: PLAN: Plan 1. Recurrent small bowel obstruction * still NPO * NG tube in position, clamped * hydrate gently with IVF * on IV zofran prn * general surgery on board; per general surgery, to consider repeating CT scan with gastrografin. * was given an enema yesterday, but hasnt yet had a bowel movement. Is passing gas. Can try a suppository today 2. Bladder diverticulum and kidney stones * CT abdomen showed dependent stones within and right posterior bladder diverticulum * urology consulted. Per urology, he would benefit from having the stone diverticulum removed, but stone is so large that endoscopic management would be futile; best approach would be open surgical approach or a laparoscopic robotic approach. Surgery is deemed too risky now, so to follow up with urology on outpatient basis. 3. Chronic hyponatremia: stable 4. 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 Stable 5. History of seizures * due to MANUAL WINDER shunt malfunction. Not on any chronic meds. 6. Bilateral inguinal hernia: stable. DVT: lovenox Charges/Coding Visit Charges Inpatient E&M: 35929 Subs Hosp L2
--- NOTE | 2022-09-22 11:37 | PN.SURG_ITS ---
Subjective Subjective patient passing flatus, his NG output has greatly decreased, his NG tube has been clamped most of the morning and patient has not had emesis denies abdominal pain patient's sister wants patient to have a bowel movement before he goes home, she is also requesting SBFT Objective Data Objective Data Vital Signs: Vital Signs Temp Pulse Resp BP Pulse Ox O2 Del Method 97.9 F 87 17 134/84 H 98 Room Air 09/22/22 09:00 09/22/22 09:00 09/22/22 09:00 09/22/22 09:00 09/22/22 09:00 09/22/22 09:00 Oxygen Delivery Method Room Air Weight: 53.3 kg Body Mass Index (BMI) 20.8 Intake & Output: Intake and Output for Last 24 Hours 09/20/22 09/21/22 09/22/22 23:59 23:59 23:59 Intake Total 2095 / 2095 3055.00 / 3055.00 1060 / 1060 Output Total 3900 / 4050 1350 / 1900 1440 / 1440 Balance -1805 / -1955 1705.00 / 1155.00 -380 / -380 Medical Nutrition Assessment Dietitian: Malnutrition Criteria Met Start: 09/20/22 11:01 Freq: Status: Active Protocol: Document 09/20/22 11:02 JOSE RAUL (Rec: 09/20/22 11:02 JOSE RAUL [id number]) Nutrition Malnutrition Evidence of Malnutrition Exists Yes Malnutrition (severe): Acute Illness/Injury Evidenced By Suboptimal Energy Intake ( Severe),Weight Loss (Severe), Physical Changes (Mild) Clinical Problem Acute Disease or Injury Related Malnutrition Etiology related to GI dysfunction and having decreased energy intake to meet est nutritional needs Signs/Symptoms as evidenced by NPO status w/ NG in place for wall suction, 2.4% wt loss and <50% po intake of meals x < 2 weeks. Fat/muscle loss noted w/ NFPA. Status Active Problem Recommendation Dietitian Recommendations/Changes As medically able, rec CHACORTA to Transitional diet w/ goal of liberal Regular diet Rec 8 oz ensure clear w/ meals when po diet resumes. Consider nutrition support if prolonged NPO duration (>3 days) Lab / Micro Data Attestation: I reviewed the patient's lab results. Result Diagrams: 09/22/22 06:15 09/22/22 06:15 Labs: Laboratory Results - last 24 hr 09/22/22 06:15: WBC 11.1 H, RBC 3.98 L, Hgb 11.8 L, Hct 34.6 L, MCV 86.9, MCH 29.6, MCHC 34.1, RDW Std Deviation 42.3, RDW Coeff of Frieda 13.3, Plt Count 387, MPV 9.3, Immature Gran % (Auto) 0.300, Neut % (Auto) 71.8 H, Lymph % (Auto) 16.4 L, [place] % (Auto) 10.8 H, Eos % (Auto) 0.4, Baso % (Auto) 0.3, Absolute Neuts (auto) 8.0 H, Absolute Lymphs (auto) 1.82, Nucleated RBC % 0 09/22/22 06:15: Sodium 131 L, Potassium 3.5, Chloride 96 L, Carbon Dioxide 23.0, Anion Gap 12, BUN 10, Creatinine 0.49 L, Estim Creat Clear Calc 129.93, Est GFR (MDRD) Af Amer 229, Est GFR (MDRD) Non-Af 189, BUN/Creatinine Ratio 20.5 H, Glu cose 74, Calcium 8.1 L Physical Exam Const alert General Appearance: cooperative Resp normal respiratory effort Effort and Inspection: able to speak in complete sentences GI GI Narrative: abdomen is soft and benign Assessment & Plan Assessment/Plan (1) Small bowel obstruction: PLAN: resolved, see below (2) Abdominal pain, acute, generalized: PLAN: resolved, see below PLAN: Plan spoke with patient's sister, she is unhappy with her brother's care in the hospital she states that a specific bowel regimen must be followed for her brother - I have ordered this as per her wishes Will also order gastrogaffin SBFT and discussed with radiologist - if clear then can advance patient's diet and d/c to jasmine
--- NOTE | 2022-09-22 12:00 | RAD_ITS ---
STUDY: GASTROGRAFIN SMALL BOWEL FOLLOW-THROUGH EXAMINATION. REASON FOR EXAM: Male, 56 years old. Gastrogaffin small bowel follow through TECHNIQUE: 120 mL of GASTROGRAFIN was introduced through the indwelling nasogastric tube. COMPARISON: None. FINDINGS: A ventriculoperitoneal shunt catheter is seen within the left lower quadrant. There is mild degree of diffuse gaseous distention of the small bowel and colon down to the rectum. There is a deformity of the left hip joint with cephalic migration of the left femur with a new pseudoacetabulum in the superior aspect of the left iliac bone. Contrast is seen in the small bowel. By 4 hours, contrast is seen throughout the colon. RAD/Small Bowel Series Only IMPRESSION: Delayed transit although there is no evidence of obstruction. Electronically Signed: Kingsley Butler MD at 8:15 EST ,
--- NOTE | 2022-09-22 12:08 | NURSING ---
Pt off floor for procedure
[2022-09-22 16:55] VITALS: O2SAT 98
[2022-09-22] MEDS: Glycerin 1 Suppository 1 SUPP RC (16:55)
[2022-09-22 17:00] VITALS: BP 137/81; PULSE 96; RESP 16; TEMP 36.6; O2SAT 96
[2022-09-22 22:00] VITALS: BP 150/89; PULSE 86; RESP 16; TEMP 36.4; O2SAT 97
[2022-09-23] MEDS: Lactated Ringers 1,000 ML 100 ML IV (02:29)
[2022-09-23 03:39] VITALS: BP 123/85; PULSE 95; RESP 18; TEMP 36.6; O2SAT 96
--- NOTE | 2022-09-23 04:35 | RAD_ITS ---
EXAM: XR ABDOMEN, 1 VIEW CLINICAL INDICATION: ileus TECHNIQUE: Frontal supine view of the abdomen/pelvis. This report was created using [employer] report generation technology. COMPARISON: XR Abdomen dated 09/22/2022 FINDINGS: LOWER THORAX: No acute pathology. GASTROINTESTINAL TRACT: Previously noted barium placed within the stomach via the endogastric tube now extends into the large bowel and rectum. There is persistent prominent and diffuse distention of the large bowel and rectum. ORGANS: No organomegaly. BONES/JOINTS: No acute abnormality. SOFT TISSUES: No pathological calcification. RAD/Abdomen Single View (Portable) IMPRESSION: Persistent large bowel ileus. No evidence of small bowel obstruction. Electronically Signed: Chemo Bell MD at 8:26 EST ,
[2022-09-23 07:02] LABS: Absolute Lymphocyte Count 1.64 X10^3/uL (0.83-4.51); Absolute Neutrophil Count 8.3 X10^3/uL (2.0-7.7); Basophil# 0.03 X10^3/uL; Basophil% 0.3 % (0-1); Eosinophil# 0.04 X10^3/uL; Eosinophils% 0.3 % (0-5); Hematocrit 34.6 % (40-54); Hemoglobin 11.9 g/dL (13.0-16.5); Lymphocyte # 1.64 X10^3/ul (0.83-4.51); Lymphocyte % 14.2 % (19-41); Mean Corp Hgb Conc 34.4 g/dL (32-36); Mean Corpuscular Hgb 29.8 pg (27.0-32.0); Mean Corpuscular Volume 86.5 fL (80-94); Mean Platelet Vol. 9.2 fl (6.2-12.0); Monocyte# 1.55 X10^3/uL; Monocyte% 13.4 % (0-10); NRBC Flagged by Analyzer 0 % (0-5); Neutrophil # 8.28 X10^3/uL (2.7-7.7); Neutrophil % 71.5 % (47-70); POSITIVE DIFFERENTIAL YES; Platelet Count 389 K/mm3 (150-450); RBC Distribution Width CV 13.4 % (11.6-14.6); RBC Distribution Width SD 42.4 fl (35.1-43.9); White Blood Count 11.6 K/mm3 (4.4-11.0)
[2022-09-23 07:10] LABS: Differential Indicated SCAN CRITERIA MET
[2022-09-23 07:45] VITALS: O2SAT 95
[2022-09-23 07:47] LABS: Anion Gap 13 (5-15); BUN 9 mg/dL (7-18); BUN/Creat Ratio 18.5 RATIO (10-20); Calcium,Total 8.3 mg/dL (8.5-10.1); Chloride 96 mmol/L (98-107); Creatinine, Serum 0.49 mg/dL (0.70-1.30); EST Glomerular Filtration Rate 189 mL/min (>60); Est Glom Filt Rate - Afr Amer 229 mL/min (>60); Estimated Creatinine Clearance 129.93 ml/min; Glucose 70 mg/dL (74-106); Potassium 3.3 mmol/L (3.5-5.1); Sodium Level 130 mmol/L (136-145)
[2022-09-23 08:46] VITALS: BP 134/90; PULSE 92; RESP 16; TEMP 36.6; O2SAT 97
[2022-09-23] MEDS: Enoxaparin 40 MG/0.4 ML Syringe SC (10:42)
[2022-09-23 11:00] VITALS: BP 128/82; PULSE 90; RESP 15; TEMP 36.3; O2SAT 96
[2022-09-23] MEDS: Potassium Chloride 10mEq/100mL 10 MEQ/100 ML IV.SOLN. 100 MEQ IV BOLUS ×4 (11:48→14:53)
[2022-09-23] MEDS: Menthol/Lanolin/Calamine/Znox 113 GM Tube 1 APPLIC TOPICAL (13:50)
--- NOTE | 2022-09-23 15:28 | DCINST_ITS ---
Discharge Instructions Diet Discharge Diet: No restrictions Activity Discharge Activity: Return to Normal Activity Dressing / Incision Call your doctor if you observe: Fever of 101 or Higher, Shortness of breath, Dizziness, Fainting spells, Swelling in the ankles, Chest pain and Increased palpitations (irregular heartbeat) Follow Up Care Test Results: Test results from this visit will be discussed in further detail at your follow- up appointment, if applicable. Discharge Plan Admission Admit Date/Time: 09/20/22 02:04 Attending Provider: Ace Moncada Primary Care Provider: Lyndon Sanders Consulting Providers: Laura Kidd ; Diane Franco ; Kevyn Oliva ; Conchita Rankin Discharge Orders/Prescriptions Prescriptions: Continued Linzess 72 mcg capsule 145 mcg PO DAILY Label Comments: TAKE 1 CAP BY MOUTH ONCE DAILY ON EMPTY STOMACH SWALLOW WHOLE DO NOT CHEW/CRUSH baclofen 5 MG tablet 5 mg PO TID Rx Instructions: Hold for sedation/lethargy Referrals / Follow Up: Lyndon Sanders MD [Primary Care Provider] - Within 1 Week Disposition Disposition (needs filled in before D/C Order can be placed): Home Health Service
--- NOTE | 2022-09-23 15:30 | DS.PCM_ITS ---
Providers Date of Admission: 09/20/22 Primary Care Physician: Dr. Lyndon Sanders MD Consultations 09/20/22 04:41 Consult: General Surgery Routine Consulting Provider: Laura Kidd Reason for Consult: Distal small bowel obstruction EMERGENT Consult: No MD Notified: Yes Date Notified: 09/20/22 Time Notified: 02:09 Method of Notification: ED Physician Initiated Consult: Urology Routine Consulting Provider: Kevyn Oliva Reason for Consult: Inguinal hernia containing bladder/bladder diverticulum/bladder stones EMERGENT Consult: No MD Notified: Yes Date Notified: 09/20/22 Time Notified: 09:55 Method of Notification: Answering Service Reason For Visit: SMALL BOWEL OBSTRUCTION Diagnosis Discharge Diagnosis (1) Small bowel obstruction: Status: Acute Code(s): K56.609 - Unspecified intestinal obstruction, unspecified as to partial versus complete obstruction (2) Abdominal pain, acute, generalized: Status: Acute Code(s): R10.84 - Generalized abdominal pain Plan 1. Recurrent small bowel obstruction * still NPO * NG tube in position, clamped * hydrate gently with IVF * on IV zofran prn * general surgery on board; per general surgery, to consider repeating CT scan with gastrografin. * was given an enema yesterday, but hasnt yet had a bowel movement. Is passing gas. Can try a suppository today 2. Bladder diverticulum and kidney stones * CT abdomen showed dependent stones within and right posterior bladder diverticulum * urology consulted. Per urology, he would benefit from having the stone diverticulum removed, but stone is so large that endoscopic management would be futile; best approach would be open surgical approach or a laparoscopic robotic approach. Surgery is deemed too risky now, so to follow up with urology on outpatient basis. 3. Chronic hyponatremia: stable 4. 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 Stable 5. History of seizures * due to [employer]PECTOR shunt malfunction. Not on any chronic meds. 6. Bilateral inguinal hernia: stable. DVT: lovenox Medications at Discharge Home Medications linaclotide 72 mcg capsule (Linzess) 145 mcg PO DAILY constipation 07/31/21 baclofen 5 mg tablet 5 mg PO TID spasms 07/21/22 Hospital Course Operations None Procedures None Summary of Care Provided Minutes Spent on Discharge: 37 Hospital Course: Per HPI: JIAN ALTAMIRANO, is a 56 M who presented department [facility] on 05/19/2022 with intractable nausea and vomiting that started at approximately 6 PM.? Patient was just recently admitted here from 09/10/2022 [id number] through 09/12/2022 for bowel obstruction at that time.? Family states that there is some theory that he has some scar from his [employer] shunt that intermittently causes obstruction.? Family indicated that typically they noticed his urine output drops some prior to him developing obstructions.? It appears that last admission his symptoms resolved with conservative management however he was only discharged 1 week ago today.? He was also found to have a urinary tract infection at that time and does have a known history of bladder stones for which he follows with urology in [place].? Family is not aware when his last visit was however.? He has just completed his antibiotics yesterday for his UTI found at his last admission.? Since presenting he had ongoing episodes of nausea and vomiting and an NG tube had to be placed.? He has had several bouts of symptoms as above that have caused presentation however it does not appear that he is required any surgical intervention previously.? Family is concerned because they do feel that these becoming more frequently occurring. Vital signs on presentation showed a temperature of 97.8, heart rate 118, blood pressure 136/95, respiratory rate is 20, pulse ox is 98% on room air.? His tachycardia did improve after the NG tube was placed as did his blood pressure.? CBC shows a leukocytosis and a thrombocytosis with a white count of 16.9 and a platelet count of 550,000 respectively.? His chemistry panel shows hyponatremia at 129 however he does have intermittent issues with chronic hyponatremia.? Blood glucose level was 128.? His lab is otherwise unremarkable.? Acute abdominal series was performed and showed right-sided [employer] shunt, no active pulmonary disease and a mildly dilated small bowel and colon.? A CT of the abdomen pelvis was then performed and demonstrated findings consistent with a distal small bowel obstruction having a transition point in the mid abdomen, large rectal stool collection, bilateral inguinal hernia continuing to contain bladder on the left with mild surrounding inflammation however inflammation has improved since September 10, 2022 scan, dependent stones within the bladder and right posterior bladder diverticulum, nonobstructive left nephrolithiasis that is stable. After NG tube placement the emergency department his vital signs improved dramatically.? He was also given pain medication and antiemetics.? General surgery was contacted by the emergency department physician and they recommended admission with consultation to them. Hospital Course: 1. Recurrent small bowel obstruction/bladder diverticulum with stone? 56-year-old male with a history of hydrocephalus presents to the hospital with recurrent small bowel obstructions. This is likely secondary to adhesions due to placement of the [employer]PECTOR shunt. He proceeded through his hospital course very well, his NG was clamped yesterday and he was trialed on clear liquids and then he had its removed today as he was not having any nausea or vomiting. He did have small bowel follow-through was just showed his gastroparesis and slow transit but did not show any small bowel obstruction at this time. He is having some fairly large stools today so it does appear that things are opening up. Is also noticed on CT scan on admission that he had a bladder diverticulum with stones so urology was consulted and felt that he can follow-up with them as an outpatient to discuss surgical options. I discussed with him and his sister the plan for discharge today and they both expressed understanding of the risk benefits of going home and are okay with him going home today. 2. Chronic hyponatremia, congenital hydrocephalus, history of seizures, bilateral inguinal hernias are all chronic medical conditions complicate his care. His home medications were continued where appropriate Physical Exam Narrative General: Alert, Oriented x3, Cooperative, No apparent distress HEENT: Atraumatic, PERRLA, EOMI, Normocephalic Oral: Moist Mucosa Neck: Supple, No JVD Lungs: Clear to auscultation, Normal air movement, No rhonchi, No wheeze, No rales Cardiovascular: Regular rate, Regular Rhythm, Normal S1, Normal S2, No murmurs Abdomen: Soft, Non Tender, Non-Distended, No Hepato-splenomegaly Extremities: No edema, Capillary Refill Less than 3 Seconds Skin: No rashes, No breakdown Musculoskeletal: No Tenderness to Palpation of Joints or Extremities Neurological: Cranial nerves II-XII grossly intact, Motor Exam 5/5 strength throughout, Sensory exam intact to light touch and pain Psych/Mental Status: Normal Affect, Appropriate Medical Records Data Medical Nutrition Assessment Dietitian: Malnutrition Criteria Met Start: 09/20/22 11:01 Freq: Status: Active Protocol: Document 09/20/22 11:02 JOSE RAUL (Rec: 11/07/22 11:02 SLA [id number]) Nutrition Malnutrition Evidence of Malnutrition Exists Yes Malnutrition (severe): Acute Illness/Injury Evidenced By Suboptimal Energy Intake ( Severe),Weight Loss (Severe), Physical Changes (Mild) Clinical Problem Acute Disease or Injury Related Malnutrition Etiology related to GI dysfunction and having decreased energy intake to meet est nutritional needs Signs/Symptoms as evidenced by NPO status w/ NG in place for wall suction, 2.4% wt loss and <50% po intake of meals x < 2 weeks. Fat/muscle loss noted w/ NFPA. Status Active Problem Recommendation Dietitian Recommendations/Changes As medically able, rec CHACORTA to Transitional diet w/ goal of liberal Regular diet Rec 8 oz ensure clear w/ meals when po diet resumes. Consider nutrition support if prolonged NPO duration (>3 days) Weight / BMI Weight Weight: 117 lb 8.102 oz Body Mass Index (BMI) 20.8 ABG / Lab / Microbiology Data Result Diagrams: 09/23/22 06:45 09/23/22 06:45 Laboratory: Laboratory Results - last 24 hr 09/23/22 06:45: WBC 11.6 H, RBC 4.00 L, Hgb 11.9 L, Hct 34.6 L, MCV 86.5, MCH 29.8, MCHC 34.4, RDW Std Deviation 42.4, RDW Coeff of Frieda 13.4, Plt Count 389, MPV 9.2, Immature Gran % (Auto) 0.300, Neut % (Auto) 71.5 H, Lymph % (Auto) 14.2 L, [place] % (Auto) 13.4 H, Eos % (Auto) 0.3, Baso % (Auto) 0.3, Absolute Neuts (auto) 8.3 H, Absolute Lymphs (auto) 1.64, Nucleated RBC % 0, Diff Path Review March09/23/22 06:45: Sodium 130 L, Potassium 3.3 L, Chloride 96 L, Carbon Dioxide 21.0, Anion Gap 13, BUN 9, Creatinine 0.49 L, Estim Creat Clear Calc 129.93, Est GFR (MDRD) Af Amer 229, Est GFR (MDRD) Non-Af 189, BUN/Creatinine Ratio 18.5, Glucose 70 L, Calcium 8.3 L Radiography Diagnostic Testing: Radiology Impression Small Bowel X-Ray 09/22/22 12:00 IMPRESSION: Delayed transit although there is no evidence of obstruction. Electronically Signed: Kingsley Butler MD at 8:15 EST , KUB X-Ray 09/23/22 04:35 IMPRESSION: Persistent large bowel ileus. No evidence of small bowel obstruction. Electronically Signed: Chemo Bell MD at 8:26 EST , D/C Instructions Discharge Diet: No restrictions Call your doctor if you observe: Fever of 101 or Higher, Shortness of breath, Dizziness, Fainting spells, Swelling in the ankles, Chest pain and Increased palpitations (irregular heartbeat) Meaningful Use Info Meaningful Use Diagnoses (Choose all that apply): None applicable Discharge Plan Admission Admit Date/Time: 09/20/22 02:04 Attending Provider: Ace Moncada Primary Care Provider: Lyndon Sanders Consulting Providers: Laura Kidd ; Diane Franco ; Kevyn Oliva ; Conchita Rankin Discharge Orders/Prescriptions Prescriptions: Continued Linzess 72 mcg capsule 145 mcg PO DAILY Label Comments: TAKE 1 CAP BY MOUTH ONCE DAILY ON EMPTY STOMACH SWALLOW WHOLE DO NOT CHEW/CRUSH baclofen 5 MG tablet 5 mg PO TID Rx Instructions: Hold for sedation/lethargy Referrals / Follow Up: Lyndon Sanders MD [Primary Care Provider] - Within 1 Week Kevyn Oliva MD [Med Staff - Active Staff] - Within 1 Month Disposition Disposition (needs filled in before D/C Order can be placed): Home Health Service Charges/Coding Visit Charges Inpatient E&M: 22972 Disch Hosp
[2022-09-23 15:40] LABS: Pathologist Review Reviewed
--- NOTE | 2022-09-23 15:51 | PCM.PN.SRG ---
Subjective Subjective patient denies abdominal pain, having diarrhea after gastrogaffin SBFT Objective Data Objective Data Vital Signs: Vital Signs Temp Pulse Resp BP Pulse Ox O2 Del Method 97.3 F L 90 15 128/82 H 96 Room Air 09/23/22 11:00 09/23/22 11:00 09/23/22 11:00 09/23/22 11:00 09/23/22 11:00 09/23/22 11:00 Oxygen Delivery Method Room Air Weight: 53.3 kg Body Mass Index (BMI) 20.8 Intake & Output: Intake and Output for Last 24 Hours 09/21/22 09/22/22 09/23/22 23:59 23:59 23:59 Intake Total 3055.00 / 3055.00 2060 / 2060 2196.66 / 2196.66 Output Total 1350 / 1900 2140 / 2390 800 / 800 Balance 1705.00 / 1155.00 -80 / -330 1396.66 / 1396.66 Medical Nutrition Assessment Dietitian: Malnutrition Criteria Met Start: 09/20/22 11:01 Freq: Status: Active Protocol: Document 09/20/22 11:02 JOSE RAUL (Rec: 09/20/22 11:02 [facility] [id number]) Nutrition Malnutrition Evidence of Malnutrition Exists Yes Malnutrition (severe): Acute Illness/Injury Evidenced By Suboptimal Energy Intake ( Severe),Weight Loss (Severe), Physical Changes (Mild) Clinical Problem Acute Disease or Injury Related Malnutrition Etiology related to GI dysfunction and having decreased energy intake to meet est nutritional needs Signs/Symptoms as evidenced by NPO status w/ NG in place for wall suction, 2.4% wt loss and <50% po intake of meals x < 2 weeks. Fat/muscle loss noted w/ NFPA. Status Active Problem Recommendation Dietitian Recommendations/Changes As medically able, rec CHACORTA to Transitional diet w/ goal of liberal Regular diet Rec 8 oz ensure clear w/ meals when po diet resumes. Consider nutrition support if prolonged NPO duration (>3 days) Lab / Micro Data Attestation: I reviewed the patient's lab results. Result Diagrams: 09/23/22 06:45 09/23/22 06:45 Labs: Laboratory Results - last 24 hr 09/23/22 06:45: WBC 11.6 H, RBC 4.00 L, Hgb 11.9 L, Hct 34.6 L, MCV 86.5, MCH 29.8, MCHC 34.4, RDW Std Deviation 42.4, RDW Coeff of Frieda 13.4, Plt Count 389, MPV 9.2, Immature Gran % (Auto) 0.300, Neut % (Auto) 71.5 H, Lymph % (Auto) 14.2 L, [place] % (Auto) 13.4 H, Eos % (Auto) 0.3, Baso % (Auto) 0.3, Absolute Neuts (auto) 8.3 H, Absolute Lymphs (auto) 1.64, Nucleated RBC % 0, Diff Path Review Reviewed 09/23/22 06:45: Sodium 130 L, Potassium 3.3 L, Chloride 96 L, Carbon Dioxide 21.0, Anion Gap 13, BUN 9, Creatinine 0.49 L, Estim Creat Clear Calc 129.93, Est GFR (MDRD) Af Amer 229, Est GFR (MDRD) Non-Af 189, BUN/Creatinine Ratio 18.5, Glucose 70 L, Calcium 8.3 L Radiography Diagnostic Testing: Radiology Impression Small Bowel X-Ray 09/22/22 12:00 IMPRESSION: Delayed transit although there is no evidence of obstruction. Electronically Signed: Kingsley Butler MD at 8:15 EST , KUB X-Ray 09/23/22 04:35 IMPRESSION: Persistent large bowel ileus. No evidence of small bowel obstruction. Electronically Signed: Chemo Bell MD at 8:26 EST , Physical Exam Const alert and oriented x3 General Appearance: cooperative Resp normal respiratory effort Effort and Inspection: able to speak in complete sentences GI GI Narrative: abdomen is unchanged from yesterday Assessment & Plan Assessment/Plan (1) Small bowel obstruction: PLAN: resolved as seen by radiographic studies (2) Abdominal pain, acute, generalized: PLAN: resolved as per patient PLAN: Plan consider discharge home if medically feasible I will sign off If patient remains in patient, please re-consult if any problems
--- NOTE | 2022-09-23 16:05 | CASEMGMT ---
NEIL EATON NOTE: Pt being discharged home. PT/OT notes have been reviewed. Additional therapy recommended. NEIL EATON to room to talk w/pt and sister, who is at bedside. They both state would like for have [facility] therapy work w/pt. Order placed to have PT/OT added onto [facility] order. Call placed to Marisabel @ [facility] and she was made aware. She is also aware pt is discharging today. Pt and sister deny having other discharge planning needs. Augusto FIELDS RN CM
[2022-09-23 17:00] VITALS: BP 128/72; PULSE 75; RESP 15; TEMP 36.4; O2SAT 94
== END 2022-09-23 19:05 | disposition home health service (06) | DRG 389 ==
LOC: ED 23:44 → MS3 09-20 03:52
PROVIDERS: Student in an Organized Health Care Education/Training Program; Admitting Provider Internal Medicine; Emergency Provider Emergency Medicine; PCP Family Medicine; Visit Provider Family Medicine
DX: K56.600 Partial intestinal obstruction, unspecified as to cause (principal); E87.1 Hypo-osmolality and hyponatremia; Q03.9 Congenital hydrocephalus, unspecified; K40.20 Bilateral inguinal hernia, without obstruction or gangrene, not specified as recurrent; I10 Essential (primary) hypertension; K31.84 Gastroparesis; Z98.2 Presence of cerebrospinal fluid drainage device; N20.0 Calculus of kidney; N32.3 Diverticulum of bladder; Z79.899 Other long term (current) drug therapy; Z68.20 Body mass index [BMI] 20.0-20.9, adult
CPT/HCPCS: 36415; 74018; 74022; 74176; 74250; 80048; 80053; 81002; 83735; 84100; 84443; 85025; 97162; 97166; 97802; 99251; 99285; J7030; J7050; J7120; A4216; G0463; J2405

== ENCOUNTER 2022-10-29 14:18 | Emergency (ER) | payer MEDICARE, MEDICAID, SELFPAY ==
[2022-10-29 14:20] VITALS: BP 160/98; PULSE 98; RESP 18; TEMP 36.2; O2SAT 100; BMI 21.0
[2022-10-29 15:56] LABS: Mucous, Urine 0 SEEN /hpf (<or=2+); Squamous Epithelial Cells - UA 0 SEEN /hpf (0-5)
[2022-10-29 16:01] LABS: Color, Urine Yellow (Yellow); Glucose, Dipstick Normal (Normal); Ketone-Dipstick Negative (Negative); Leukocyte Esterase-Dipstick 500 /ul (Negative); Nitrite-Dipstick Positive (Negative); Occult Blood-Urine 250 /ul (Negative); Protein-Dipstick 100 mg/dl (Negative); Specific Gravity, Urine 1.015 (1.002-1.030); Urine Bilirubin Dipstick Negative (Negative); Urine Clarity Sl. Cloudy (Clear); Urine Urobilinogen Normal (Normal)
[2022-10-29 16:07] LABS: Red Blood Cells-Urine > 100 SEEN /hpf (0-5); White Blood Cells 5-10 SEEN /hpf (0-5)
[2022-10-29 16:08] LABS: Bacteria RARE /hpf (None Seen)
--- NOTE | 2022-10-29 16:51 | EX.ED.GUMALE ---
HPI History of Present Illness Chief Complaint: Bowman C/O Informant: patient and spouse/S.O. Narrative Narrative: Bowman catheter dysfunction. This was changed out at home today was not draining spouse concerns with area looking dusky therefore is removed. He has had a Bowman catheter 2 years for retention. He was brought in here. Denies fevers. Denies abdominal pain. Follows to urologist through [facility]. Prior similar symptoms: Yes PFSH PFSH Medical History Bladder diverticulum Bladder diverticulum Bladder stones Catheter-associated urinary tract infection Chronic indwelling Bowman catheter Fever Gastric paresis Gastroparesis History of urinary retention Hydrocephalus Hypertension Hyponatremia Ileus Inguinal hernia Kidney stones Seizures Home Medications linaclotide 72 mcg capsule (Linzess) 145 mcg PO DAILY constipation 07/31/21 [History Last Taken 07/20/22] baclofen 5 mg tablet 5 mg PO TID spasms 07/21/22 [History Last Taken 07/20/22] cephalexin 500 mg capsule 500 mg PO Q6 #28 caps 10/29/22 [Rx Last Taken Unknown] Allergy/AdvReac Type Severity Reaction Status Date / Time Iodinated Contrast Media Allergy Anaphylaxis Verified 10/29/22 14:20 [Iodinated Contrast Media - IV Dye] nitrofurantoin AdvReac Upset Verified 10/29/22 14:20 Stomach Family History Father Heart disease Kidney stones Prostate disease Brother Kidney stones Other Cancer Peptic ulcer disease Surgical History S/P release of urethral stricture 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 Social History household members: family Smoking Status: Never smoker alcohol intake: never substance use type: does not use ROS ROS ED Constitutional Constitutional ED: Denies chills, fever(s) or sweats Eyes Eyes: Denies change in vision ENT ENT ED: Denies dysphagia or sore throat Cardiovascular Cardiovascular: Denies chest pain, leg edema, palpitations or racing heartbeat Respiratory/Chest Respiratory/Chest: Denies cough, dyspnea or dyspnea on exertion Gastrointestinal Gastrointestinal: Denies abdominal pain, diarrhea, nausea or vomiting Genitourinary Genitourinary ED: Denies dysuria, hematuria or urinary frequency Musculoskeletal Musculoskeletal: Denies back pain, extremity pain or neck pain Integumentary Denies rash or wounds Neurologic Neurologic: Denies headache(s), paresthesias or weakness EXAM Physical Exam Const Vital Signs: 10/29/22 14:20 Temperature 97.1 F L Temperature Source Temporal Pulse Rate 98 Respiratory Rate 18 Blood Pressure 160/98 H Blood Pressure Mean 118 Pulse Ox 100 Oxygen Delivery Method Room Air Positive well nourished and well developed General Appearance ED: well developed and NAD HEENT Reports moist mucous membranes normocephalic and atraumatic Eyes PERRL, EOMs intact bilaterally and conjunctivae normal General Eye ED: Yes normal appearance of both eyes Neck no lymphadenopathy and supple General: Negative for tenderness Chest Wall Chest: Negative for tenderness Resp normal respiratory effort and normal air movement Effort and Inspection: symmetric chest movement; Negative for respiratory distress Cardio regular rate, regular rhythm and no murmurs Peripheral Pulses: pulses 2+ throughout GI normal to inspection, nondistended, normoactive bowel sounds and non-tender Palpation: Negative for guarding or rebound tenderness present Narrative: Bowman catheter draining yellow urine. Back/Spine no CVA tenderness and no thoracic nor lumbar tenderness Extremity normal to inspection General Extremety ED: Negative for edema or tenderness General Extremity: Negative for edema Neuro oriented x3 and no sensory deficits noted Sensorium / Orientation: awake and alert Skin no rashes or lesions noted and no wounds MDM MDM MDM Narrative Medical decision making narrative: Vital stable due to the busy department Bowman catheter was placed through triage by nursing. Straining. Urine from new Bowman, noted signs of infection culture sent. He started on Keflex. He feels better. Outpatient follow-up. Lab Data Attestation: I reviewed the patient's lab results. Labs: Laboratory Results - last 24 hr 10/29/22 15:50 Urine Color Yellow Urine Clarity Sl. Cloudy Urine pH 8.0 Ur Specific Cascade 1.015 Urine Protein 100 H Urine Glucose (UA) Normal Urine Ketones Negative Urine Occult Blood 250 H Urine Nitrite Positive H Urine Bilirubin Negative Urine Urobilinogen Normal Ur Leukocyte Esterase 500 H Urine RBC > 100 SEEN Urine WBC 5-10 SEEN Ur Squamous Epith Cells 0 SEEN Urine Bacteria RARE Urine Mucus 0 SEEN Discharge Plan Triage Chief Complaint: Bowman C/O Other Complaint: Complaint ED Provider: Abelardo Albarran Dx/Rx/DC Orders Clinical Impression: Bowman catheter problem, Acute UTI Instructions: Urinary Tract Infections in Men, ED Bowman Catheter, Care Prescriptions: New cephalexin [cephalexin] 500 mg capsule 500 mg PO Q6 Qty: 28 0RF No Action Linzess 72 mcg capsule 145 mcg PO DAILY Label Comments: TAKE 1 CAP BY MOUTH ONCE DAILY ON EMPTY STOMACH SWALLOW WHOLE DO NOT CHEW/CRUSH baclofen 5 MG tablet 5 mg PO TID Rx Instructions: Hold for sedation/lethargy Primary Care Provider: Lyndon Sanders Referrals: Lyndon Sanders MD [Primary Care Provider] - 5-7 Days Disposition Disposition: Home, Self Care
[2022-10-29] MEDS: Cephalexin 250 MG Capsule 500 MG PO (17:04)
== END 2022-10-29 17:05 | disposition home or self-care (01) ==
LOC: ED 17:02
PROVIDERS: Emergency Provider Emergency Medicine; PCP Family Medicine; Visit Provider Emergency Medicine
DX: T83.011A Breakdown (mechanical) of indwelling urethral catheter, initial encounter (principal); Y84.6 Urinary catheterization as the cause of abnormal reaction of the patient, or of later complication, without mention of misadventure at the time of the procedure; N39.0 Urinary tract infection, site not specified; R33.9 Retention of urine, unspecified; I10 Essential (primary) hypertension; Z79.899 Other long term (current) drug therapy
CPT/HCPCS: 51702; 81001; 87077; 87086; 87088; 87186; 99283; A4216

== ENCOUNTER 2022-12-10 22:13 | Emergency (ER) | payer MEDICARE, MEDICAID, SELFPAY ==
[2022-12-10 22:14] VITALS: BP 160/94; PULSE 101; RESP 16; TEMP 36.4; O2SAT 98; BMI 21.0
--- NOTE | 2022-12-10 22:24 | CT_ITS ---
ACR Level 3 findings have been noted. An addendum which confirms receipt of the report will follow. INDICATION: Pain EXAMINATION: CT Abdomen And Pelvis W/O Contrast Injection TECHNIQUE: Helically acquired images were obtained of the abdomen and pelvis without the use of IV contrast. A radiation dose optimization technique was used for this scan. Oral contrast: None. COMPARISON: 09/20/2022 FINDINGS: Evaluation of the solid organs and vascular structures is limited without intravenous contrast. Visualized lung bases: Bibasilar atelectasis. Liver: Unremarkable Gallbladder: Unremarkable Spleen: Unremarkable Pancreas: Unremarkable Adrenal Glands: Unremarkable Kidneys: 5 mm nonobstructing stone in the left mid renal pole. Multiple bilateral simple cysts are stable. Vasculature: Mild scattered aortoiliac atherosclerotic calcifications. GI Tract: There is marked distention of the stomach, multiple small bowel loops and the colon. The colon is dilated up to 6.9 cm in the transverse segment. The small bowel is dilated up to 4.6 cm. The sigmoid colon appears to rotate around an axis of swirling vessels with short segment narrowing of the proximal and distal sigmoid colon in the mid abdomen (image 32, series 601). Lymphadenopathy: None Peritoneum: No ascites. There is a shunt catheter coursing in the anterior abdominal wall and ending in the left paracolic gutter. Bladder: Moderate circumferential bladder wall thickening with surrounding mesenteric fat stranding. There is a Bowman catheter in place. There is bulky calcification again seen in the dependent portion of the bladder as well as a right posterior bladder diverticulum. Bowman catheter is in place. A small portion of the left anterior bladder extends into a left inguinal hernia, unchanged from prior. Reproductive organs: The prostate is moderate enlarged. Bones/Soft tissues: Mild scattered degenerative changes of the visualized spine. Severe left hip osteoarthritis with femoral acetabular osseous remodeling and cephalad subluxation. Mild to moderate right hip osteoarthritis. 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 Chronic findings involving the bladder with likely cystitis, unchanged since prior CT dated 09/20/2022. Other chronic findings as above. Electronically Signed: Reynold Anglin MD at 23:37 EST ,
--- NOTE | 2022-12-10 22:27 | EDS_ITS ---
HPI HPI - GI History of Present Illness Chief Complaint: Nausea/Vomiting Narrative Narrative: 57-year-old male past medical history of gastroparesis, indwelling Bowman catheter, previous ileus and bowel obstructions, bladder diverticulum presents with his sister who is a retired RN with concern for bowel obstruction. He is well-known to the emergency department for frequent visits for nausea and vomiting, and abdominal pain. She states that she thinks his last bowel obstruction was in August or September of last year but is unsure. He had a large bowel movement this morning without any blood in it. This evening, he vomited his stomach contents. This is usually a sign that he is working on obstruction. She denies that he has had any fever or other symptoms. No blood in his emesis. PFSH [facility] Medical History Bladder diverticulum Bladder diverticulum Bladder stones Catheter-associated urinary tract infection Chronic indwelling Bowman catheter Fever Gastric paresis Gastroparesis History of urinary retention Hydrocephalus Hypertension Hyponatremia Ileus Inguinal hernia Kidney stones Seizures Home Medications linaclotide 72 mcg capsule (Linzess) 145 mcg PO DAILY constipation 07/31/21 [History Last Taken 07/20/22] baclofen 5 mg tablet 5 mg PO TID spasms 07/21/22 [History Last Taken 07/20/22] cephalexin 500 mg capsule 500 mg PO Q6 #28 caps 10/29/22 [Rx Last Taken Unknown] sulfamethoxazole 800 mg-trimethoprim 160 mg tablet (Bactrim DS) 1 tab PO BID 7 days #14 tabs 11/04/22 [Rx Last Taken Unknown] Allergy/AdvReac Type Severity Reaction Status Date / Time Iodinated Contrast Media Allergy Anaphylaxis Verified 10/29/22 14:20 [Iodinated Contrast Media - IV Dye] nitrofurantoin AdvReac Upset Verified 10/29/22 14:20 Stomach Family History Father Heart disease Kidney stones Prostate disease Brother Kidney stones Other Cancer Peptic ulcer disease Surgical History S/P release of urethral stricture S/P CRYPTOLOGIC SUPERVISOR shunt Social History household members: family Smoking Status: Never smoker alcohol intake: never substance use type: does not use ROS ROS ED ROS Narrative Constitutional: No fever, no chills. HEENT: No sore throat. No neck pain. No loss of vision. No rhinorrhea. Cardiovascular: No chest pain. No palpitations. No pedal edema. Respiratory: No cough, no shortness of breath. Abdominal: No abdominal pain. Positive nausea. 1 episode of nonbloody vomiting. Genitourinary: No dysuria. No hematuria. Musculoskeletal: No myalgias. No arthralgias. Neurologic: No headaches. No dizziness. No lightheadedness. Skin: No rash. No change in color. Psychiatric: No depression. No anxiety. EXAM Physical Exam Narrative Exam Narrative: Afebrile. Vital signs noted. HEENT: Normocephalic. Atraumatic. PERRL, EOMI. Neck soft and supple. No point tenderness or step off. Cardiovascular: Regular rate and rhythm with intermittent tachycardia. No murmurs, rubs, or gallops appreciated. Respiratory: No tachypnea. Lungs clear to auscultation bilaterally. Gastrointestinal: Abdomen soft, mild diffuse tenderness with mild to moderate distention with decreased bowel sounds. No rebound or guarding. Neurological: Awake. Alert. Nonfocal, nonlateralizing. Skin: No rash. Normal color. No pallor. Musculoskeletal: No pedal edema. Full range of motion extremities. Const Vital Signs: 12/10/22 22:14 12/11/22 01:46 12/11/22 03:48 Temperature 97.5 F L Temperature Source Temporal Pulse Rate 101 H 92 Respiratory Rate 16 18 16 Blood Pressure 160/94 H 147/91 H Blood Pressure Mean 116 109 Pulse Ox 98 94 Oxygen Delivery Method Room Air Room Air Room Air MDM MDM MDM Narrative Medical decision making narrative: I reviewed his prior ED work-ups. He had a bowel obstruction in September of last year. CT will be obtained without contrast because he has anaphylaxis to IV contrast. He is not given p.o. contrast secondary to his vomiting and concern for aspiration. He will be given Zofran and a bolus of IV fluids and his laboratory work will be checked. I am not as concerned for dehydration as he has only had 1 episode of vomiting today. I reviewed the patient's laboratory work. He has slightly elevated white count of 12.1, but almost chronic leukocytosis. Hemoglobin normal at 14.6, hematocrit 41.8. Platelet count of 425. He is hyponatremic with a sodium of 129 with chloride 95. Glucose slightly elevated at 146 with a normal anion gap of 11. BUN of 16 and normal creatinine of 0.76. Lipase normal at 95. I in the pendantly reviewed the patient's CT scan. There is evidence of dilated stomach, and dilated small bowel, all the way down to the colon. In review of the radiology CT report, they confirm suspicion for sigmoid volvulus. I discussed the patient with the radiologist over the telephone, and he states that there are 2 areas of concern in the S[place] L[place]: That appear pinched with engorged blood vessels. Upon repeat examination at approximately 2345, patient's abdomen remains soft. He has not had profuse vomiting here, and his sister states that he may have spit up. I will discuss the patient with Dr. Grant with general surgery with concern for the patient's sigmoid volvulus. In discussion with Dr. Grant, as the patient has a CRYPTOLOGIC SUPERVISOR shunt, it is not advisable that he be admitted here as there is no neurosurgery available in the event that the shunt needs were placed, or gets infected. In discussion with his sister, she agrees with the need for transfer to an outside facility. I discussed the patient with the [facility], and while he was initially accepted there, there is a long waiting list and I was told that he needed a backup plan by the on-call colorectal surgeon. Of note, gastroenterology is unavailable here for any sigmoid volvulus decompression with endoscopy. In discussion with his sister, she states that she would like [facility] to be tried for transfer as I do feel his sigmoid volvulus requires more emergent attention. I discussed the patient with Dr. Navarro with acute care surgery who recommends ED to ED transfer. I then discussed the patient with Dr. Murillo in the ED at the [facility] at [facility] who is excepted him in transfer. The colorectal surgeon was also on the line, and she agrees with the ED to ED transfer. I informed the patient and his sister that they would be transferred. In the meantime, I did have the RN inserted an NG tube to low intermittent wall suction. KUB x-ray was obtained for placement and interpreted by myself. Upon my interpretation it does appear to be in good position. I reviewed the radiology report and they confirm good placement of the NG tube. At this point in time, he will be transferred in stable condition. Lab Data Attestation: I reviewed the patient's lab results. Labs: Laboratory Results - last 24 hr 12/10/22 12/10/22 22:53 22:53 WBC 12.1 H RBC 4.96 Hgb 14.6 Hct 41.8 MCV 84.3 MCH 29.4 MCHC 34.9 RDW Std Deviation 40.9 RDW Coeff of Frieda 13.2 Plt Count 425 MPV 9.7 Immature Gran % (Auto) 0.200 Neut % (Auto) 78.7 H Lymph % (Auto) 11.0 L Pennington % (Auto) 9.7 Eos % (Auto) 0.2 Baso % (Auto) 0.2 Absolute Neuts (auto) 9.5 H Absolute Lymphs (auto) 1.34 Nucleated RBC % 0 Sodium 129 L Potassium 3.9 Chloride 95 L Carbon Dioxide 23.0 Anion Gap 11 BUN 16 Creatinine 0.76 Estim Creat Clear Calc 83.85 Est GFR (MDRD) Af Amer 138 Est GFR (MDRD) Non-Af 114 BUN/Creatinine Ratio 21.2 H Glucose 146 H Calcium 8.7 Total Bilirubin 0.40 AST 13 L ALT 19 Alkaline Phosphatase 63 Total Protein 7.4 Albumin 3.4 Globulin 4.0 Albumin/Globulin Ratio 0.8 L Lipase 95 Radiography Diagnostic Testing: Clinical Impression(s) from Imaging Studies Abdomen/Pelvis CT 12/10/22 22:24 IMPRESSION: Findings suspicious for sigmoid volvulus with high-grade bowel obstruction. Chronic findings involving the bladder with likely cystitis, unchanged since prior CT dated 09/20/2022. Other chronic findings as above. Electronically Signed: Reynold Anglin MD at 23:37 EST , ADDENDUM: 12/10/22 1269 IMPRESSION: Findings suspicious for sigmoid volvulus with high-grade bowel obstruction. Chronic findings involving the bladder with likely cystitis, unchanged since prior CT dated 09/20/2022. Other chronic findings as above. N.B. : The above information has been verbally conveyed by Reynold Anglin MD to Josiah Schaffer MD, on 12/10/2022 23:45:05 (ET). Electronically Signed: Reynold Anglin MD at 23:37 EST , KUB X-Ray 12/11/22 00:29 IMPRESSION: 1. Appropriate positioning of nasogastric tube. 2. Dilated small and large bowel. Electronically Signed: Shantelle Murillo MD at 1:55 EST , Critical Care Time Critical care time (excluding procedures): 30-74 minutes (22 minutes), Including time spent:, Discussing w/Patient &/or Family/Manufacturing Engineering Technologist, Discussing w/Consultants, Arranging Admission or Transfer and Performing Direct Patient Care at Bedside Discharge Plan Triage Chief Complaint: Nausea/Vomiting ED Provider: Josiah Schaffer Dx/Rx/DC Orders Clinical Impression: Sigmoid volvulus, Hyponatremia, Nausea and vomiting, CRYPTOLOGIC SUPERVISOR (ventriculoperitoneal) shunt status Prescriptions: No Action Linzess 72 mcg capsule 145 mcg PO DAILY Label Comments: TAKE 1 CAP BY MOUTH ONCE DAILY ON EMPTY STOMACH SWALLOW WHOLE DO NOT CHEW/CRUSH baclofen 5 MG tablet 5 mg PO TID Rx Instructions: Hold for sedation/lethargy cephalexin [cephalexin] 500 mg capsule 500 mg PO Q6 Qty: 28 0RF sulfamethoxazole-trimethoprim [Bactrim DS] 800-160 mg tablet 1 tab PO BID 7 Days Qty: 14 0RF Rx Instructions: 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 Stop the current Keflex that he is on because the bacteria may be resistant to it. The Bactrim he will take 1 pill twice a day for 7 days. Primary Care Provider: Lyndon Sanders Referrals: Lyndon Sanders MD [Primary Care Provider] - Disposition Disposition: Acute Care Hospital Discharge Location: [facility]
[2022-12-10] MEDS: 0.9% Normal Saline 1,000 ML 1000 ML IV (22:57)
[2022-12-10] MEDS: Ondansetron 4 MG/2 ML Vial IV (22:57)
[2022-12-10 23:04] LABS: Absolute Lymphocyte Count 1.34 X10^3/uL (0.83-4.51); Absolute Neutrophil Count 9.5 X10^3/uL (2.0-7.7); Basophil# 0.02 X10^3/uL; Basophil% 0.2 % (0-1); Eosinophil# 0.03 X10^3/uL; Eosinophils% 0.2 % (0-5); Hematocrit 41.8 % (40-54); Hemoglobin 14.6 g/dL (13.0-16.5); Lymphocyte # 1.34 X10^3/ul (0.83-4.51); Mean Corp Hgb Conc 34.9 g/dL (32-36); Mean Corpuscular Hgb 29.4 pg (27.0-32.0); Mean Corpuscular Volume 84.3 fL (80-94); Mean Platelet Vol. 9.7 fl (6.2-12.0); Monocyte# 1.18 X10^3/uL; Monocyte% 9.7 % (0-10); NRBC Flagged by Analyzer 0 % (0-5); Neutrophil # 9.53 X10^3/uL (2.7-7.7); Neutrophil % 78.7 % (47-70); Platelet Count 425 K/mm3 (150-450); RBC Distribution Width CV 13.2 % (11.6-14.6); RBC Distribution Width SD 40.9 fl (35.1-43.9); Red Blood Count 4.96 M/mm3 (4.6-6.2); White Blood Count 12.1 K/mm3 (4.4-11.0)
[2022-12-10 23:19] LABS: ALB/GLOB Ratio 0.8 RATIO (0.9-2.4); AST(SGOT) 13 U/L (15-37); Alanine Aminotransfer ALT/SGPT 19 U/L (16-61); Albumin, Serum 3.4 g/dL (3.2-5.0); Alkaline Phosphatase 63 U/L (45-117); Anion Gap 11 (5-15); BUN 16 mg/dL (7-18); BUN/Creat Ratio 21.2 RATIO (10-20); Calcium,Total 8.7 mg/dL (8.5-10.1); Chloride 95 mmol/L (98-107); Creatinine, Serum 0.76 mg/dL (0.70-1.30); EST Glomerular Filtration Rate 114 mL/min (>60); Est Glom Filt Rate - Afr Amer 138 mL/min (>60); Estimated Creatinine Clearance 83.85 ml/min; Glucose 146 mg/dL (74-106); Lipase 95 U/L (73-393); Potassium 3.9 mmol/L (3.5-5.1); Protein, Total 7.4 g/dL (6.4-8.2); Sodium Level 129 mmol/L (136-145)
--- NOTE | 2022-12-11 00:29 | RAD_ITS ---
STUDY: X-RAY - ABDOMEN/PELVIS REASON FOR EXAM: Male, 57 years old patient with nasogastric (NG) tube placement. TECHNIQUE: Single AP view of the abdomen / pelvis. COMPARISON: CT of the abdomen and pelvis dated December 10, 2022. FINDINGS: Normal visualized lung bases. There is a large amount of bowel gas throughout the upper abdomen with dilatation of small bowel. Nasogastric tube is present with the distal tip in the left upper quadrant. There is no obvious organomegaly, mass, or pathologic calcifications. A catheter is visible in the soft tissues of the right chest and upper abdomen. This is presumably secondary to ventriculostomy drain. Pelvis is not imaged on this study. Normal visualized osseous structures. RAD/Abdomen Single View (Portable) IMPRESSION: 1. Appropriate positioning of nasogastric tube. 2. Dilated small and large bowel. Electronically Signed: Shantelle Murillo MD at 1:55 EST ,
[2022-12-11] MEDS: Oxymetazoline 0.05% 1 SPRAY SPRAY.BTL 2 SPRAY NASAL (01:27)
[2022-12-11] MEDS: Lidocaine Jelly 2% 20 ML Syringe (URO-JET) 1 APPLIC TOPICAL (01:27)
[2022-12-11 01:46] VITALS: BP 147/91; PULSE 92; RESP 18; O2SAT 94
--- NOTE | 2022-12-11 01:52 | ED.RN ---
[facility] CONTACTED FOR TRANSFER AT THIS TIME
[2022-12-11 03:48] VITALS: RESP 16
[2022-12-11 06:19] VITALS: BP 126/81; PULSE 86; RESP 16; TEMP 36.4; O2SAT 95
[2022-12-11 06:20] VITALS: BP 126/81; RESP 16; O2SAT 95
== END 2022-12-11 07:39 | disposition short-term general hospital (02) ==
PROVIDERS: Emergency Provider Emergency Medicine; PCP Family Medicine; Visit Provider Emergency Medicine
DX: K56.2 Volvulus (principal); E87.1 Hypo-osmolality and hyponatremia; R11.2 Nausea with vomiting, unspecified; Z98.2 Presence of cerebrospinal fluid drainage device
CPT/HCPCS: 74018; 74176; 80053; 83690; 85025; 87428; 96361; 96374; 99285; J7030; A4216; J2405

== ENCOUNTER 2023-02-15 05:19 | Emergency (ER) | payer MEDICARE, MEDICAID, SELFPAY ==
[2023-02-15 05:20] VITALS: BP 148/96; PULSE 85; RESP 18; TEMP 37.1; O2SAT 98; BMI 21.7
--- NOTE | 2023-02-15 05:29 | EX.ED.GUMALE ---
HPI History of Present Illness Chief Complaint: Bowman C/O Narrative Narrative: 57-year-old male, past medical history of gastroparesis, chronic indwelling Bowman that is changed once a month, presents with his sister who is his caregiver because of blocked Bowman catheter. She relates history that he called her at around 3:00 in the morning, 2-1/2 hours ago, with bladder pressure. She was unable to irrigate his Bowman catheter like she usually does. She did not have anything to deflate the balloon. She thinks it may have been blocked for a few hours. No fevers or chills, no nausea or vomiting currently. He had been on cephalexin last month. She presents him for his Bowman catheter problem. [facility] Medical History Bladder diverticulum Bladder diverticulum Bladder stones Catheter-associated urinary tract infection Chronic indwelling Bowman catheter Fever Gastric paresis Gastroparesis History of urinary retention Hydrocephalus Hypertension Hyponatremia Ileus Inguinal hernia Kidney stones Seizures Home Medications linaclotide 72 mcg capsule (Linzess) 145 mcg PO DAILY constipation 07/31/21 [History Last Taken 07/20/22] baclofen 5 mg tablet 5 mg PO TID spasms 07/21/22 [History Last Taken 07/20/22] cephalexin 500 mg capsule 500 mg PO Q6 #28 caps 10/29/22 [Rx Last Taken Unknown] sulfamethoxazole 800 mg-trimethoprim 160 mg tablet (Bactrim DS) 1 tab PO BID 7 days #14 tabs 11/04/22 [Rx Last Taken Unknown] Allergy/AdvReac Type Severity Reaction Status Date / Time Iodinated Contrast Media Allergy Anaphylaxis Verified 10/29/22 14:20 [Iodinated Contrast Media - IV Dye] nitrofurantoin AdvReac Upset Verified 10/29/22 14:20 Stomach Family History Father Heart disease Kidney stones Prostate disease Brother Kidney stones Other Cancer Peptic ulcer disease Surgical History S/P release of urethral stricture 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 HEENT: No sore throat. No neck pain. No loss of vision. No rhinorrhea. Cardiovascular: No chest pain. No palpitations. No pedal edema. Respiratory: No cough, no shortness of breath. Abdominal: No abdominal pain. No nausea. No vomiting. Genitourinary: No dysuria. No hematuria. History of bladder diverticulum. Chronic indwelling Bowman catheter. Unable to irrigate because Bowman catheter is blocked. Musculoskeletal: No myalgias. No arthralgias. Neurologic: No headaches. No dizziness. No lightheadedness. Skin: No rash. No change in color. Psychiatric: No depression. No anxiety. EXAM Physical Exam Narrative Exam Narrative: Afebrile. Vital signs noted. HEENT: Normocephalic. Atraumatic. PERRL, EOMI. Neck soft and supple. No point tenderness or step off. Cardiovascular: Regular rate and rhythm. No murmurs, rubs, or gallops appreciated. Respiratory: No tachypnea. Lungs clear to auscultation bilaterally. Gastrointestinal: Abdomen soft, nontender, with normoactive bowel sounds. No rebound or guarding. Genitourinary: Exam performed after Bowman catheter had been changed by RN upon arrival, draining clear to yellow urine. Neurological: Awake. Alert. Nonfocal, nonlateralizing. Skin: No rash. Normal color. No pallor. Musculoskeletal: No pedal edema. Full range of motion extremities. Const Vital Signs: 02/15/23 05:20 Temperature 98.8 F Temperature Source Temporal Pulse Rate 85 Respiratory Rate 18 Blood Pressure 148/96 H Blood Pressure Mean 113 Pulse Ox 98 Oxygen Delivery Method Room Air MDM MDM MDM Narrative Medical decision making narrative: His obstructed Bowman catheter has been changed out. He was not due for a Bowman catheter change until mid month, in the next 1 to 2 weeks. At this point in time, I feel he can be discharged home to follow-up with his urologist and his primary care provider. I do feel that the blockage may have been secondary to sediment. I do not feel that he requires observation or outpatient antibiotics, this can be taken care of by his primary care provider and/or urologist because with his history of bladder diverticulum and chronic indwelling Bowman catheter, I do feel a urinalysis would most likely be colonized with bacteria. Hence, without any fever, I do not feel that he would require antibiotics regardless of what the urinalysis would show. Return instructions were reviewed. Disposition is discharged home in stable condition. Discharge Plan Triage Chief Complaint: Bowman C/O ED Provider: Josiah Schaffer Dx/Rx/DC Orders Clinical Impression: Bowman catheter problem, Obstructed Bowman catheter, Urinary catheter (Bowman) change required Instructions: Indwelling Urinary Catheter Dc, ED Bowman Catheter, Care Prescriptions: No Action Linzess 72 mcg capsule 145 mcg PO DAILY Label Comments: TAKE 1 CAP BY MOUTH ONCE DAILY ON EMPTY STOMACH SWALLOW WHOLE DO NOT CHEW/CRUSH baclofen 5 MG tablet 5 mg PO TID Rx Instructions: Hold for sedation/lethargy cephalexin [cephalexin] 500 mg capsule 500 mg PO Q6 Qty: 28 0RF sulfamethoxazole-trimethoprim [Bactrim DS] 800-160 mg tablet 1 tab PO BID 7 Days Qty: 14 0RF Rx Instructions: 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 Stop the current Keflex that he is on because the bacteria may be resistant to it. The Bactrim he will take 1 pill twice a day for 7 days. Primary Care Provider: Lyndon Sanders Referrals: Lyndon Sandesr MD [Primary Care Provider] - Activity Restrictions/Additional Instructions: Follow-up with your urologist as soon as possible. Disposition Disposition: Home, Self Care
== END 2023-02-15 05:45 | disposition home or self-care (01) ==
LOC: ED 05:34
PROVIDERS: Emergency Provider Emergency Medicine; PCP Family Medicine; Visit Provider Emergency Medicine
DX: T83.091A Other mechanical complication of indwelling urethral catheter, initial encounter (principal); X58.XXXA Exposure to other specified factors, initial encounter
CPT/HCPCS: 99282

== ENCOUNTER 2023-02-20 15:21 | Inpatient (IN) | payer MEDICARE, MEDICAID, SELFPAY ==
[2023-02-20 15:22] VITALS: BP 137/103; PULSE 101; RESP 18; TEMP 37.2
[2023-02-20 15:24] VITALS: BP 137/103; PULSE 101; RESP 18; TEMP 37.2
--- NOTE | 2023-02-20 16:21 | CT_ITS ---
STUDY: CT ABDOMEN AND PELVIS WITHOUT CONTRAST REASON FOR EXAM: Male, 57 years old. Pain -- distention, hx of sbo RADIATION DOSAGE (If Supplied By Facility): CTDIvol = ( 6.55 ) mGy, DLP = ( 369.98 ) mGycm TECHNIQUE: Transaxial images were obtained from the dome of the diaphragm to the symphysis pubis without oral contrast, and without intravenous contrast. Sagittal and coronal images were reconstructed. Individualized dose optimization techniques were used for this CT. COMPARISON: CT abdomen and pelvis December 10, 2022. FINDINGS: The visualized lung bases are unremarkable. The visualized portions of the heart are within normal limits. Normal liver. Normal gallbladder and extrahepatic biliary system. Normal spleen. Normal pancreas. Normal bilateral adrenal glands. Mild right hydronephrosis. Punctate nonobstructing nephrolith on the left. 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 Stable simple left renal cortical cyst measures 1 x 2.2 cm. Moderate hiatal hernia. Air-fluid levels noted in the small bowel. Colon is distended with multiple air-fluid levels. There is no bowel wall thickening or pneumatosis. Appendix is not identified. Normal abdominal aorta. Normal inferior vena cava. Normal retroperitoneum. Bladder is decompressed with a Bowman catheter. Bladder stones appear unchanged. There is also a stable radiodensity in or near the distal right ureter measuring 3.6 x 1.7 cm in transverse dimension. Bilateral fat-containing inguinal hernias. Bladder extends in to the left inguinal hernia also. CRITICAL CARE SPECIALIST shunt enters the right upper quadrant and is terminating within the pelvis. Moderate dextroconvex scoliosis. Chronic dislocation left hip. CT/Abdomen/Pelvis without Cont IMPRESSION: Mild right hydronephrosis and hydroureter. Possible punctate distal ureterolith. Stable bladder stone and questionable large distal ureterolith. Ileus. Electronically Signed: Chris Romero MD at 18:18 EDT ,
[2023-02-20 16:33] VITALS: BMI 24.7
--- NOTE | 2023-02-20 16:34 | ED.VIS.GI ---
HPI HPI - GI History of Present Illness Chief Complaint: Abd Pain Informant: patient and spouse/S.O. Narrative Narrative: Here with sister concerning recurrent bowel obstruction. History of multiple bowel obstructions in the past. Reports last time was a couple months ago diagnosed here, however transferred to for with suspected sigmoid volvulus. Per sister, sigmoid scope was performed and there was no volvulus, treated conservatively with improvement of symptoms. Prior to that was this past July evaluated by myself treated conservatively. History of CRUISE COORDINATOR shunt with surgery from shunt placement. Known inguinal hernia from CT back July with bladder involvement no bowel involvement. Last bowel movement yesterday. Sister states since yesterday increasing distention and pain. There is no nausea or vomiting. Patient tolerated p.o. intake is been decreased Bowman output and she reports this is a precursor to him developing a bowel obstruction. Chronic Bowman for retention followed by Dr. Virgen. Denies fevers. No surgical intervention for obstruction in the past. Reports no flatus today. Prior similar symptoms: Yes PFSH PFSH Medical History (Updated 02/20/23 @ 20:[address] Nikki Celestin MD) Bladder diverticulum Bladder stones Catheter-associated urinary tract infection Chronic indwelling Bowman catheter Gastroparesis History of urinary retention Hydrocephalus Hypertension Hyponatremia Ileus Inguinal hernia Seizures Home Medications linaclotide 72 mcg capsule (Linzess) 290 mcg PO DAILY constipation 07/31/21 [History Last Taken 02/20/23] baclofen 5 mg tablet 5 mg PO TID spasms 07/21/22 [History Last Taken 02/20/23] Allergy/AdvReac Type Severity Reaction Status Date / Time Iodinated Contrast Media Allergy Anaphylaxis Verified 10/29/22 14:20 [Iodinated Contrast Media - IV Dye] nitrofurantoin AdvReac Upset Verified 10/29/22 14:20 Stomach Family History Father Heart disease Kidney stones Prostate disease Brother Kidney stones Other Cancer Peptic ulcer disease Surgical History S/P release of urethral stricture S/P CRUISE COORDINATOR shunt Social History household members: family Smoking Status: Never smoker alcohol intake: never substance use type: does not use ROS ROS ED Constitutional Constitutional ED: Denies chills, fever(s) or sweats Eyes Eyes: Denies change in vision ENT ENT ED: Denies dysphagia or sore throat Cardiovascular Cardiovascular: Denies chest pain, leg edema, palpitations or racing heartbeat Respiratory/Chest Respiratory/Chest: Denies cough, dyspnea or dyspnea on exertion Gastrointestinal Gastrointestinal: Reports abdominal pain; Denies diarrhea, nausea or vomiting Genitourinary Genitourinary ED: Denies dysuria, hematuria or urinary frequency Musculoskeletal Musculoskeletal: Denies back pain, extremity pain or neck pain Integumentary Denies rash or wounds Neurologic Neurologic: Denies headache(s), paresthesias or weakness EXAM Physical Exam Const Vital Signs: 02/20/23 15:22 02/20/23 15:24 02/20/23 18:43 Temperature 99.0 F 99.0 F 98.9 F Temperature Source Temporal Temporal Temporal Pulse Rate 101 H 101 H 95 Respiratory Rate 18 18 18 Blood Pressure 137/103 H 137/103 H 134/90 H Blood Pressure Mean 114 114 104 Pulse Ox 96 Oxygen Delivery Method Room Air Positive well nourished and well developed General Appearance ED: well developed and NAD HEENT Reports dry mucous membranes normocephalic and atraumatic Mouth ED: Yes dry mucous membranes Mouth: dry mucous membranes Eyes PERRL, EOMs intact bilaterally and conjunctivae normal General Eye ED: Yes normal appearance of both eyes Neck no lymphadenopathy and supple General: Negative for tenderness Chest Wall Chest: Negative for tenderness Resp normal respiratory effort and normal air movement Effort and Inspection: symmetric chest movement; Negative for respiratory distress Cardio regular rate, regular rhythm and no murmurs Peripheral Pulses: pulses 2+ throughout GI GI Narrative: Abdominal distention scant bowel sounds, no guarding or rebound. 2 healed horizontal right side abdominal scars reported from CRUISE COORDINATOR shunt placement Palpation: Negative for guarding or rebound tenderness present Back/Spine no CVA tenderness and no thoracic nor lumbar tenderness Extremity normal to inspection General Extremety ED: Negative for edema or tenderness General Extremity: Negative for edema Neuro oriented x3 and no sensory deficits noted Sensorium / Orientation: awake and alert Skin no rashes or lesions noted and no wounds MDM MDM MDM Narrative Medical decision making narrative: Interventions / MDM: Differential diagnosis: Small bowel obstruction, abdominal pain Diagnosis considered but do not suspect: N/A My EKG interpretation: N/A Imaging independently reviewed and interpreted by myself: CT abdomen pelvis: Proximal small bowel distention with air-fluid levels along with mild right hydro-, calcification in the bladder with Bowman catheter. Noted bladder herniation left inguinal canal as previous. Per radiology reporting ileus with questionable distal ureteral stone. External documents reviewed: N/A Test considered but not ordered:N/A ED course: Patient distended abdomen scant bowel sounds history of similar with bowel obstructions. Work-up initial white count 3.7 then so 124, there is been similar levels previously, currently not confused without any vomiting. Creatinine normal, lactic acid normal. CT scan per radiology air-fluid levels reporting ileus. Reported right hydro question of distal stone. Added urine and culture. Re-evaluation: 1900: stable, 300 cc output, improved distention. Nontoxic. I spoke with on-call surgeon Dr. Kidd, with reported ileus improved with conservative therapy previously she request discussing with medicine for admission. Spoke with Dr. Celestin for admission. Urine did report signs of infection and possible colonization culture sent. Will do cefepime which is sensitive as Rocephin was resistant. Disposition discussed with patient/family/significant other: Patient Case discussed with consulting clinician: General surgeon Dr. Kidd, hospitalist Dr. Celestin Lab Data Attestation: I reviewed the patient's lab results. Labs: Laboratory Results - last 24 hr 02/20/23 02/20/23 02/20/23 16:39 16:39 16:39 WBC 13.7 H RBC 4.98 Hgb 14.7 Hct 42.8 MCV 85.9 MCH 29.5 MCHC 34.3 RDW Std Deviation 39.3 RDW Coeff of Frieda 12.6 Plt Count 414 MPV 9.5 Immature Gran % (Auto) 0.300 Neut % (Auto) 73.6 H Lymph % (Auto) 12.4 L [place] % (Auto) 13.0 H Eos % (Auto) 0.5 Baso % (Auto) 0.2 Absolute Neuts (auto) 10.1 H Absolute Lymphs (auto) 1.69 Nucleated RBC % 0 Differential Comment SCANNED Diff Path Review May foll Sodium 124 L Potassium 3.7 Chloride 92 L Carbon Dioxide 21.0 Anion Gap 11 BUN 18 Creatinine 0.78 Estim Creat Clear Calc 86.12 Est GFR (MDRD) Af Amer 132 Est GFR (MDRD) Non-Af 109 BUN/Creatinine Ratio 23.0 H Glucose 106 Lactic Acid 1.0 Calcium 8.6 Phosphorus Magnesium Total Bilirubin 0.80 AST 14 L ALT 19 Alkaline Phosphatase 72 Total Protein 7.3 Albumin 3.5 Globulin 3.8 Albumin/Globulin Ratio 0.9 Lipase 71 L Urine Color Urine Clarity Urine pH Ur Specific [place] Urine Protein Urine Glucose (UA) Urine Ketones Urine Occult Blood Urine Nitrite Urine Bilirubin Urine Urobilinogen Ur Leukocyte Esterase Urine RBC Urine WBC Ur Squamous Epith Cells Amorphous Sediment Urine Bacteria Urine Mucus 02/20/23 02/20/23 16:39 18:55 WBC RBC Hgb Hct MCV MCH MCHC RDW Std Deviation RDW Coeff of Frieda Plt Count MPV Immature Gran % (Auto) Neut % (Auto) Lymph % (Auto) [place] % (Auto) Eos % (Auto) Baso % (Auto) Absolute Neuts (auto) Absolute Lymphs (auto) Nucleated RBC % Differential Comment Diff Path Review Sodium Potassium Chloride Carbon Dioxide Anion Gap BUN Creatinine Estim Creat Clear Calc Est GFR (MDRD) Af Amer Est GFR (MDRD) Non-Af BUN/Creatinine Ratio Glucose Lactic Acid Calcium Phosphorus 2.9 Magnesium 2.1 Total Bilirubin AST ALT Alkaline Phosphatase Total Protein Albumin Globulin Albumin/Globulin Ratio Lipase Urine Color Yellow Urine Clarity Sl. Cloudy Urine pH 8.0 Ur Specific [place] 1.010 Urine Protein 30 H Urine Glucose (UA) Normal Urine Ketones 50 H Urine Occult Blood 25 H Urine Nitrite Positive H Urine Bilirubin Negative Urine Urobilinogen Normal Ur Leukocyte Esterase 500 H Urine RBC 0-5 SEEN Urine WBC 10-25 SEEN Ur Squamous Epith Cells 0-5 SEEN Amorphous Sediment 1+ PHOS Urine Bacteria 1+ Urine Mucus 0 SEEN Radiography Diagnostic Testing: Clinical Impression(s) from Imaging Studies Abdomen/Pelvis CT 02/20/23 16:21 IMPRESSION: Mild right hydronephrosis and hydroureter. Possible punctate distal ureterolith. Stable bladder stone and questionable large distal ureterolith. Ileus. Electronically Signed: Chris Romero MD at 18:18 EDT Reading Location ID and State: [facility] / [place] , Service support , KUB X-Ray 02/20/23 18:40 IMPRESSION: Ileus. Enteric tube now noted in the stomach. Electronically Signed: Chris Romero MD at 19:12 EDT , Discharge Plan Dx/Rx/DC Orders Clinical Impression: Ileus, Hyponatremia, Abdominal distension, Normal pressure hydrocephalus, CRUISE COORDINATOR (ventriculoperitoneal) shunt status, Chronic indwelling Bowman catheter, Kidney stone on right side, UTI (urinary tract infection) Disposition Disposition: Acute Care Hospital [facility] Discharge Date/Time: 02/20/23 20:13
[2023-02-20] MEDS: 0.9% Normal Saline 1,000 ML 1000 ML IV (16:41)
[2023-02-20 16:49] LABS: Absolute Lymphocyte Count 1.69 X10^3/uL (0.83-4.51); Absolute Neutrophil Count 10.1 X10^3/uL (2.0-7.7); Basophil# 0.03 X10^3/uL; Basophil% 0.2 % (0-1); Eosinophil# 0.07 X10^3/uL; Eosinophils% 0.5 % (0-5); Hematocrit 42.8 % (40-54); Hemoglobin 14.7 g/dL (13.0-16.5); Lymphocyte # 1.69 X10^3/ul (0.83-4.51); Lymphocyte % 12.4 % (19-41); Mean Corp Hgb Conc 34.3 g/dL (32-36); Mean Corpuscular Hgb 29.5 pg (27.0-32.0); Mean Corpuscular Volume 85.9 fL (80-94); Mean Platelet Vol. 9.5 fl (6.2-12.0); Monocyte# 1.78 X10^3/uL; NRBC Flagged by Analyzer 0 % (0-5); Neutrophil # 10.06 X10^3/uL (2.7-7.7); Neutrophil % 73.6 % (47-70); POSITIVE DIFFERENTIAL YES; Platelet Count 414 K/mm3 (150-450); RBC Distribution Width CV 12.6 % (11.6-14.6); RBC Distribution Width SD 39.3 fl (35.1-43.9); Red Blood Count 4.98 M/mm3 (4.6-6.2); White Blood Count 13.7 K/mm3 (4.4-11.0)
[2023-02-20 17:03] LABS: ALB/GLOB Ratio 0.9 RATIO (0.9-2.4); AST(SGOT) 14 U/L (15-37); Alanine Aminotransfer ALT/SGPT 19 U/L (16-61); Albumin, Serum 3.5 g/dL (3.2-5.0); Alkaline Phosphatase 72 U/L (45-117); Anion Gap 11 (5-15); BUN 18 mg/dL (7-18); Calcium,Total 8.6 mg/dL (8.5-10.1); Chloride 92 mmol/L (98-107); Creatinine, Serum 0.78 mg/dL (0.70-1.30); EST Glomerular Filtration Rate 109 mL/min (>60); Est Glom Filt Rate - Afr Amer 132 mL/min (>60); Estimated Creatinine Clearance 86.12 ml/min; Globulin 3.8 g/dL (2.2-4.2); Glucose 106 mg/dL (74-106); Lipase 71 U/L (73-393); Potassium 3.7 mmol/L (3.5-5.1); Protein, Total 7.3 g/dL (6.4-8.2); Sodium Level 124 mmol/L (136-145)
[2023-02-20 17:31] LABS: Differential Indicated SCAN CRITERIA MET
[2023-02-20 17:33] LABS: Differential Comment SCANNED
[2023-02-20] MEDS: Oxymetazoline 0.05% 1 SPRAY SPRAY.BTL 2 SPRAY NASAL (18:16)
--- NOTE | 2023-02-20 18:40 | RAD_ITS ---
STUDY: X-RAY - ABDOMEN/PELVIS REASON FOR EXAM: Male, 57 years old. NG Insertion TECHNIQUE: Single AP view of the abdomen / pelvis. COMPARISON: CT abdomen and pelvis from today. FINDINGS: Normal visualized lung bases. Gas-filled loops of small and large bowel. Lower abdomen is not included within the [id number]. Enteric tube is now noted within the stomach. Peritoneal catheter projects over the right abdomen. The visualized liver, spleen and kidneys are grossly normal in size and morphology. Normal soft tissue structures. Normal visualized osseous structures. RAD/Abdomen Single View (Portable) IMPRESSION: Ileus. Enteric tube now noted in the stomach. Electronically Signed: Chris Romero MD at 19:12 EDT ,
[2023-02-20 18:43] VITALS: BP 134/90; PULSE 95; RESP 18; TEMP 37.2; O2SAT 96
[2023-02-20 19:09] LABS: Mucous, Urine 0 SEEN /hpf (<or=2+)
[2023-02-20 19:12] LABS: Color, Urine Yellow (Yellow); Glucose, Dipstick Normal (Normal); Ketone-Dipstick 50 mg/dl (Negative); Leukocyte Esterase-Dipstick 500 /ul (Negative); Nitrite-Dipstick Positive (Negative); Occult Blood-Urine 25 /ul (Negative); Protein-Dipstick 30 mg/dl (Negative); Urine Bilirubin Dipstick Negative (Negative); Urine Clarity Sl. Cloudy (Clear); Urine Urobilinogen Normal (Normal)
[2023-02-20 19:32] LABS: Amorphous Sediment 1+ PHOS; Bacteria 1+ /hpf (None Seen); Red Blood Cells-Urine 0-5 SEEN /hpf (0-5); Squamous Epithelial Cells - UA 0-5 SEEN /hpf (0-5); White Blood Cells 10-25 SEEN /hpf (0-5)
--- NOTE | 2023-02-20 19:50 | PCM.HP.STD ---
HPI - General General Date of Admission: 02/20/23 Date of Service: 02/20/23 Chief Complaint: Abdominal pain, distention, decreased UOP, foul smelling urine. HPI Narrative The patient is a 57 y/o M w/ PMHx: Chronic Hyponatremia (130 usual average but vacillates between low 120s-mid 130s), HTN, Hx Seizure disorder, Gastroparesis, Neurogenic bladder with chronic indwelling hannon catheter, NPH/Hydrocephalus/Functional paraplegia with wheelchair bound status s/p BASS MECHANISM MAKER shunt placement, Hx prior SBO who presents to the [facility] ED on 02/20/23 with history of 12-24 hours of progressively worsening abdominal distention, abdominal discomfort rated moderate 4-6 out of 10 in severity, decreased oral intake, decreased urine output and lack of flatus with last bowel movement greater than 24 hours prior with family concern for possible recurrent bowel obstruction and possible UTI with strong smelling urine reported as well but no fevers or chills prompting ED evaluation. Work-up in the ED included T99, heart rate 101, BP 137/103, respiratory rate 18, 96% on room air, CBC with WBC 13.7, hemoglobin 14.7, platelet 414 with left shift, CMP with sodium 124, chloride 92, lactic acid 1.0, unremarkable hepatic profile, lipase 71, urinalysis concerning for possible UTI although patient would certainly could be chronically colonized, urine culture pending per ED, CT abdomen pelvis with mild right hydronephrosis and hydroureter, possible punctate distal ureterolith, stable bladder stone and questionable large distal ureterolith, ileus with air-fluid levels noted in the small bowel, colon distended with multiple air-fluid levels with no bowel wall thickening or pneumatosis, follow-up KUB following NG tube placement with evidence of ileus with enteric tube in the stomach. In the ED patient ministered 1 L normal saline as well as cefepime 1 g IV x1. [facility] Medical History (Updated 02/20/23 @ 20:[address] Nikki Celestin MD) Bladder diverticulum Bladder stones Catheter-associated urinary tract infection Chronic indwelling Hannon catheter Gastroparesis History of urinary retention Hydrocephalus Hypertension Hyponatremia Ileus Inguinal hernia Seizures Home Medications linaclotide 72 mcg capsule (Linzess) 145 mcg PO DAILY constipation 07/31/21 [History Last Taken 07/20/22] baclofen 5 mg tablet 5 mg PO TID spasms 07/21/22 [History Last Taken 07/20/22] Allergy/AdvReac Type Severity Reaction Status Date / Time Iodinated Contrast Media Allergy Anaphylaxis Verified 10/29/22 14:20 [Iodinated Contrast Media - IV Dye] nitrofurantoin AdvReac Upset Verified 10/29/22 14:20 Stomach Family History Father Heart disease Kidney stones Prostate disease Brother Kidney stones Other Cancer Peptic ulcer disease Surgical History S/P release of urethral stricture S/P BASS MECHANISM MAKER shunt Social History household members: family Smoking Status: Never smoker alcohol intake: never substance use type: does not use ROS ROS Narrative Admission Review of Systems: CONSTITUTIONAL: No weight loss, fever, chills, + weakness or fatigue. HEENT: Eyes: No visual loss, blurred vision, double vision or yellow sclerae. Ears, Nose, Throat: No hearing loss, sneezing, congestion, runny nose or sore throat. SKIN: No rash or itching, lesions, wounds. CARDIOVASCULAR: No chest pain, chest pressure or chest discomfort, palpitations, edema, orthopnea, syncopal events. RESPIRATORY: No shortness of breath, cough or sputum, wheezing, hemoptysis. GASTROINTESTINAL: + anorexia, abdominal discomfort and distention, No reported nausea, vomiting, melena, BRBPR. GENITOURINARY: + Neurogenic bladder with chronic indwelling Hannon catheter, reporting foul-smelling urine. Does have a history of urinary retention. NEUROLOGICAL: + History neurogenic bladder, NPH, hydrocephalus with functional paraplegia with wheelchair bound status, seizure disorder, No headache, dizziness, syncope, change in bowel or bladder control. MUSCULOSKELETAL: + muscle, back pain, joint pain or stiffness. HEMATOLOGIC: No anemia, bleeding or bruising. LYMPHATICS: No enlarged nodes. No history of splenectomy. PSYCHIATRIC: No history of depression or anxiety. ENDOCRINOLOGIC: No reports of sweating, cold or heat intolerance. No polyuria or polydipsia. ALLERGIES: + History of anaphylaxis. Vital Signs Vital Signs Vital Signs: 02/20/23 15:22 02/20/23 15:24 02/20/23 18:43 Temperature 99.0 F 99.0 F 98.9 F Temperature Source Temporal Temporal Temporal Pulse Rate 101 H 101 H 95 Respiratory Rate 18 18 18 Blood Pressure 137/103 H 137/103 H 134/90 H Blood Pressure Mean 114 114 104 Pulse Ox 96 Oxygen Delivery Method Room Air Weight Weight: 139 lb 15.896 oz Body Mass Index (BMI) 24.7 Physical Exam Narrative Physical Examination: General: Awake, alert, oriented to self, place and recent events, remains cooperative, seated upright in the ED bed, notes feeling improved status post NG tube placement with approximately one quarter of the canister filled already Skin: Normal color, normal turgor, no icterus, no cyanosis. HEENT: AT/NC, EOMI, PERRLA, dry MM, poor dentition, no carotid bruits or JVD noted. Lungs: Mildly diminished, greater bases, proper effort, no rales, ronchi or wheezing. Heart: Currently regular rate and rhythm; no gallop, rub audible. Abdomen: Soft, still some discomfort to general palpation but no rebound or guarding and no marked distention with patient reporting that this has improved status post NG tube placement, NG tube in place with at least one quarter of the canister filled, hypoactive bowel sounds, no obvious HSM. Extremities: No cyanosis, clubbing, or edema, evidence of lower extremity muscle wasting. Neurological: Patient awake, alert, oriented as noted, cognitive function suspect baseline intact intact; pupils equally reactive to light and accommodation, cranial nerves II-XII grossly normal, moving extremities but patient does have significant distal muscle wasting and uses a wheelchair at baseline. Psychiatric: Affect appears fatigued, no acute evidence of depressive or anxiety feelings. Results Lab / Micro Data Result Diagrams: 02/20/23 16:39 02/20/23 16:39 Labs: Laboratory Results - last 24 hr 02/20/23 16:39: WBC 13.7 H, RBC 4.98, Hgb 14.7, Hct 42.8, MCV 85.9, MCH 29.5, MCHC 34.3, RDW Std Deviation 39.3, RDW Coeff of Frieda 12.6, Plt Count 414, MPV 9.5, Immature Gran % (Auto) 0.300, Neut % (Auto) 73.6 H, Lymph % (Auto) 12.4 L, [place] % (Auto) 13.0 H, Eos % (Auto) 0.5, Baso % (Auto) 0.2, Absolute Neuts (auto) 10.1 H, Absolute Lymphs (auto) 1.69, Nucleated RBC % 0, Differential Comment SCANNED, Diff Path Review March02/20/23 16:39: Sodium 124 L, Potassium 3.7, Chloride 92 L, Carbon Dioxide 21.0, Anion Gap 11, BUN 18, Creatinine 0.78, Estim Creat Clear Calc 86.12, Est GFR (MDRD) Af Amer 132, Est GFR (MDRD) Non-Af 109, BUN/Creatinine Ratio 23.0 H, Glucose 106, Calcium 8.6, Total Bilirubin 0.80, AST 14 L, ALT 19, Alkaline Phosphatase 72, Total Protein 7.3, Albumin 3.5, Globulin 3.8, Albumin/Globulin Ratio 0.9, Lipase 71 L 02/20/23 16:39: Lactic Acid 1.0 02/20/23 18:55: Urine Color Yellow, Urine Clarity Sl. Cloudy, Urine pH 8.0, Ur Specific [place] 1.010, Urine Protein 30 H, Urine Glucose (UA) Normal, Urine Ketones 50 H, Urine Occult Blood 25 H, Urine Nitrite Positive H, Urine Bilirubin Negative, Urine Urobilinogen Normal, Ur Leukocyte Esterase 500 H, Urine RBC 0-5 SEEN, Urine WBC 10-25 SEEN, Ur Squamous Epith Cells 0-5 SEEN, Amorphous Sediment 1+ PHOS, Urine Bacteria 1+, Urine Mucus 0 SEEN Radiology Impression Abdomen/Pelvis CT 02/20/23 16:21 IMPRESSION: Mild right hydronephrosis and hydroureter. Possible punctate distal ureterolith. Stable bladder stone and questionable large distal ureterolith. Ileus. Electronically Signed: Chris Romero MD at 18:18 EDT Reading Location ID and State: [facility] / [place] , Service support , KUB X-Ray 02/20/23 18:40 IMPRESSION: Ileus. Enteric tube now noted in the stomach. Electronically Signed: Chris Romero MD at 19:12 EDT Reading Location ID and State: [facility] / [place] , Service support , Assessment & Plan Assessment/Plan (1) Ileus: PLAN: Plan The patient is a 57 y/o M w/ PMHx: Chronic Hyponatremia, HTN, Hx Seizure disorder, Gastroparesis, Neurogenic bladder with chronic indwelling hannon catheter, NPH/Hydrocephalus/Functional paraplegia with wheelchair bound status s/p BASS MECHANISM MAKER shunt placement, Hx prior SBO who presents to the [facility] ED on 02/20/23 with history of 12-24 hours of progressively worsening abdominal distention, abdominal discomfort rated moderate 4-6 out of 10 in severity, decreased oral intake, decreased urine output and lack of flatus with last bowel movement greater than 24 hours prior with family concern for possible recurrent bowel obstruction and possible UTI with strong smelling urine reported as well but no fevers or chills prompting ED evaluation. #1. Abdominal pain, distention with concern for adynamic ileus versus possible early SBO: Will admit to medical surgical floor, maintain on IVFs, continue NGT to suction, strict I&Os, IV pain/anti-emetics PRN, serial KUB as needed to montior bowel function, PPI IV, maintain NPO on bowel rest. General surgery Dr. Kidd consulted and will evaluate in AM. #2. Acute Complicated Urinary Tract Infection associated with Chronic Indwelling Hannon Catheter with Neurogenic bladder w/ mild right hydronephrosis and hydroureter, possible punctate distal ureterolith, stable bladder stone and questionable large distal ureterolith: UA upon ED evaluation remarkable and given decreased UOP, strong smelling per family will opt to initiate therapy but certainly does have some component of chronic colonization, pending UCx, continue IVFs, monitor I/Os, continue IV cefepime w/ transition as able pending sensitivities and speciation. Will have catheter changed. Dr. Oliva will be consulted in AM. #3. Acute on Chronic Hyponatremia: Admission Na 124, baseline does appear mid 120s-low 130s, likely worsened by recent decreased intake given #1 and #2, will continue to hydrate and repeat CMP in AM. #4. NPH, Hydrocephalus, Chronic wheelchair status, functional paraplegia, chart reported seizure history: s/p BASS MECHANISM MAKER shunt, encourage continued follow-up with his Neurologist/Neurosurgery, fall precautions, frequent positional changes, barrier care, despite seizure history reported no usage of AED. Holding chronic baclofen, will change to low dose IV ativan to prevent withdrawal component. #5. Gastroaparesis: Chronic issues, not on any reglan or medication, currently NPO status but given history could start low dose scheduled IV if necessary. #6. DVT prophylaxis: Lovenox. #7. CODE status: Patient does not have healthcare power of deputy prosecuting attorney nor living will set up he notes that his sister present would be his decision maker likely. Discussed CODE status at length including difference between FULL code, DNR-CCA and DNR-CC status. Following discussions about the differences in these status and following discussions he states he is really not sure but amenable to keeping his status is full code and will think about it further and relate to staff if there is any change. Advanced Care Planning Face to Face Time: 16 minutes. Admission Evaluation Time spent evaluating chart, patient history, patient evaluation, care planning and discussion with specialists: 75 minutes. Charges/Coding Visit Charges Inpatient E&M: 25352 Init Hosp L3 Procedures Hospitalists Procedures: 92811 Advncd Care Plan 30 Min
[2023-02-20 20:11] VITALS: BP 138/90; PULSE 81; RESP 22; TEMP 36.4; O2SAT 97
[2023-02-20 20:20] LABS: Magnesium 2.1 mg/dL (1.6-2.6); Phosphorus 2.9 mg/dL (2.5-4.9)
[2023-02-20 20:37] VITALS: BMI 21.5
[2023-02-20 20:41] VITALS: BP 134/89; PULSE 80; RESP 18; TEMP 36.6; O2SAT 95
[2023-02-20] MEDS: 0.9% Normal Saline 1,000 ML 125 ML IV (21:30)
[2023-02-20] MEDS: LORazepam 2 MG/ML Syringe 0.5 MG IV (23:10)
[2023-02-21 03:00] VITALS: BP 122/87; PULSE 80; RESP 16; TEMP 37.3; O2SAT 95
[2023-02-21 04:57] LABS: Absolute Lymphocyte Count 1.74 X10^3/uL (0.83-4.51); Absolute Neutrophil Count 3.7 X10^3/uL (2.0-7.7); Basophil# 0.03 X10^3/uL; Basophil% 0.5 % (0-1); Eosinophil# 0.08 X10^3/uL; Eosinophils% 1.2 % (0-5); Hematocrit 37.1 % (40-54); Hemoglobin 12.9 g/dL (13.0-16.5); Lymphocyte # 1.74 X10^3/ul (0.83-4.51); Lymphocyte % 26.7 % (19-41); Mean Corp Hgb Conc 34.8 g/dL (32-36); Mean Corpuscular Hgb 30.3 pg (27.0-32.0); Mean Corpuscular Volume 87.1 fL (80-94); Mean Platelet Vol. 9.7 fl (6.2-12.0); Monocyte# 0.92 X10^3/uL; Monocyte% 14.1 % (0-10); NRBC Flagged by Analyzer 0 % (0-5); Neutrophil # 3.74 X10^3/uL (2.7-7.7); Neutrophil % 57.3 % (47-70); Platelet Count 340 K/mm3 (150-450); RBC Distribution Width SD 40.9 fl (35.1-43.9); Red Blood Count 4.26 M/mm3 (4.6-6.2); White Blood Count 6.5 K/mm3 (4.4-11.0)
[2023-02-21] MEDS: 0.9% Normal Saline 1,000 ML 125 ML IV ×3 (05:17→20:07)
[2023-02-21] MEDS: LORazepam 2 MG/ML Syringe 0.5 MG IV ×3 (05:17→21:17)
[2023-02-21 05:21] LABS: ALB/GLOB Ratio 0.9 RATIO (0.9-2.4); AST(SGOT) 12 U/L (15-37); Alanine Aminotransfer ALT/SGPT 17 U/L (16-61); Albumin, Serum 2.8 g/dL (3.2-5.0); Alkaline Phosphatase 60 U/L (45-117); Anion Gap 5 (5-15); BUN 10 mg/dL (7-18); BUN/Creat Ratio 15.8 RATIO (10-20); Calcium,Total 7.9 mg/dL (8.5-10.1); Chloride 105 mmol/L (98-107); Creatinine, Serum 0.63 mg/dL (0.70-1.30); EST Glomerular Filtration Rate 140 mL/min (>60); Est Glom Filt Rate - Afr Amer 169 mL/min (>60); Estimated Creatinine Clearance 103.25 ml/min; Globulin 3.2 g/dL (2.2-4.2); Glucose 99 mg/dL (74-106); Potassium 3.8 mmol/L (3.5-5.1); Sodium Level 133 mmol/L (136-145)
--- NOTE | 2023-02-21 05:55 | RAD_ITS ---
INDICATION: Ileus EXAMINATION/TECHNIQUE: X-RAY - Supine AP view. COMPARISON: 02/20/2023. FINDINGS: Ventriculoperitoneal shunt terminates in the left lower quadrant. BOWEL GAS PATTERN: Stable dilated loops of large bowel and small bowel. No significant stool retention. CALCIFICATIONS: No abnormal calcifications identified. LOWER CHEST: Visualized lung bases are unremarkable. BONES AND SOFT TISSUES: No acute abnormality. Severe degenerative changes in the wrist changes of the left hip. RAD/Abdomen Single View (Portable) IMPRESSION: Stable ileus. Electronically Signed: Damian Moon DO at 5:47 EDT ,
[2023-02-21 06:00] VITALS: BMI 21.2
--- NOTE | 2023-02-21 06:38 | CON.PCM.SX_ITS ---
Assessment & Plan Assessment/Plan (1) Ileus: PLAN: see below PLAN: Plan patient has presented to hospital for multiple admissions for partial SBO/ileus these episodes have all resolved with NG tube decompression/IV hydration/bowel rest Patient has had no previous intraabdominal surgeries except has a NEWSP[employer]ER REPOR[employer] shunt He has known slow peristalsis Suspect that this episode will also resolve without surgery Consider gastrografin SBFT and IV reglan HPI Consult Data Date of Consult: 02/21/23 HPI Narrative Reason for Consultation: abdominal pain HPI Narrative: I was asked by Dr. Nikki Celestin to see this patient for consultation for abdominal pain and abnormal CT scan. JIAN ALTAMIRANO, is a 57 M who presents with abdominal pain, nausea and emesis. He has had multiple admissions to the hospital for the same presentation. Findings on CT scan of ileus. He has had worsening symptoms of above for the past day. He may also have a UTI. He presents with low grade temperature elevations CT scan reveals air fluid levels of small bowel, reading by radiologist of ileus - patient has known slow peristalsis. [facility] Medical History Bladder diverticulum Bladder stones Catheter-associated urinary tract infection Chronic indwelling Bowman catheter Gastroparesis History of urinary retention Hydrocephalus Hypertension Hyponatremia Ileus Inguinal hernia Seizures Home Medications linaclotide 72 mcg capsule (Linzess) 290 mcg PO DAILY constipation 07/31/21 [History Last Taken 02/20/23] baclofen 5 mg tablet 5 mg PO TID spasms 07/21/22 [History Last Taken 02/20/23] Allergy/AdvReac Type Severity Reaction Status Date / Time Iodinated Contrast Media Allergy Anaphylaxis Verified 10/29/22 14:20 [Iodinated Contrast Media - IV Dye] nitrofurantoin AdvReac Upset Verified 10/29/22 14:20 Stomach Family History Father Heart disease Kidney stones Prostate disease Brother Kidney stones Other Cancer Peptic ulcer disease Surgical History S/P release of urethral stricture S/P NEWSPAPER REPORTER shunt Social History household members: family Smoking Status: Never smoker alcohol intake: never substance use type: does not use ROS Constitutional Constitutional: Reports fatigue; Denies chills Eyes Eyes: Denies loss of central vision ENT HEENT: Denies epistaxis Cardiovascular Cardiovascular: Denies chest pain at rest Respiratory/Chest Respiratory/Chest: Denies shortness of breath at rest Gastrointestinal Gastrointestinal: Reports abdominal pain Genitourinary Genitourinary: Reports difficulty urinating Musculoskeletal Musculoskeletal: Reports muscle weakness Integumentary Integumentary: Denies jaundice Neurologic Neurologic: Denies loss of vision Hematologic/Lymphatic Hematologic/Lymphatic: Denies easy bleeding Physical Exam Const alert General Appearance: cooperative HEENT head/scalp atraumatic Neck supple Resp normal respiratory effort Effort and Inspection: able to speak in complete sentences GI GI Narrative: abdomen is soft and benign, slightly tympanitic Medical Records Data Attestation: I reviewed the patient's medical records Lab / Micro Data Attestation: I reviewed the patient's lab results. Result Diagrams: 02/21/23 04:25 02/21/23 04:25 Labs: Laboratory Results - last 24 hr 02/20/23 16:39: WBC 13.7 H, RBC 4.98, Hgb 14.7, Hct 42.8, MCV 85.9, MCH 29.5, MCHC 34.3, RDW Std Deviation 39.3, RDW Coeff of Frieda 12.6, Plt Count 414, MPV 9.5, Immature Gran % (Auto) 0.300, Neut % (Auto) 73.6 H, Lymph % (Auto) 12.4 L, Nolan % (Auto) 13.0 H, Eos % (Auto) 0.5, Baso % (Auto) 0.2, Absolute Neuts (auto) 10.1 H, Absolute Lymphs (auto) 1.69, Nucleated RBC % 0, Differential Comment SCANNED, Diff Path Review March02/20/23 16:39: Sodium 124 L, Potassium 3.7, Chloride 92 L, Carbon Dioxide 21.0, Anion Gap 11, BUN 18, Creatinine 0.78, Estim Creat Clear Calc 86.12, Est GFR (MDRD) Af Amer 132, Est GFR (MDRD) Non-Af 109, BUN/Creatinine Ratio 23.0 H, Glucose 106, Calcium 8.6, Total Bilirubin 0.80, AST 14 L, ALT 19, Alkaline Phosphatase 72, Total Protein 7.3, Albumin 3.5, Globulin 3.8, Albumin/Globulin Ratio 0.9, Lipase 71 L 02/20/23 16:39: Lactic Acid 1.0 02/20/23 16:39: Phosphorus 2.9, Magnesium 2.1 02/20/23 18:55: Urine Color Yellow, Urine Clarity Sl. Cloudy, Urine pH 8.0, Ur Specific Sylvester 1.010, Urine Protein 30 H, Urine Glucose (UA) Normal, Urine Ketones 50 H, Urine Occult Blood 25 H, Urine Nitrite Positive H, Urine Bilirubin Negative, Urine Urobilinogen Normal, Ur Leukocyte Esterase 500 H, Urine RBC 0-5 SEEN, Urine WBC 10-25 SEEN, Ur Squamous Epith Cells 0-5 SEEN, Amorphous Sediment 1+ PHOS, Urine Bacteria 1+, Urine Mucus 0 SEEN 02/21/23 04:25: WBC 6.5, RBC 4.26 L, Hgb 12.9 L, Hct 37.1 L, MCV 87.1, MCH 30.3, MCHC 34.8, RDW Std Deviation 40.9, RDW Coeff of Frieda 13.0, Plt Count 340, MPV 9.7, Immature Gran % (Auto) 0.200, Neut % (Auto) 57.3, Lymph % (Auto) 26.7, Nolan % (Auto) 14.1 H, Eos % (Auto) 1.2, Baso % (Auto) 0.5, Absolute Neuts (auto) 3.7, Absolute Lymphs (auto) 1.74, Nucleated RBC % 0 02/21/23 04:25: Sodium 133 L, Potassium 3.8, Chloride 105, Carbon Dioxide 23.0, Anion Gap 5, BUN 10, Creatinine 0.63 L, Estim Creat Clear Calc 103.25, Est GFR (MDRD) Af Amer 169, Est GFR (MDRD) Non-Af 140, BUN/Creatinine Ratio 15.8, Glucose 99, Calcium 7.9 L, Total Bilirubin 0.70, AST 12 L, ALT 17, Alkaline Phosphatase 60, Total Protein 6.0 L, Albumin 2.8 L, Globulin 3.2, Albumin/Globulin Ratio 0.9 Radiology Impression Abdomen/Pelvis CT 02/20/23 16:21 IMPRESSION: Mild right hydronephrosis and hydroureter. Possible punctate distal ureterolith. Stable bladder stone and questionable large distal ureterolith. Ileus. Electronically Signed: Chris Romero MD at 18:18 EDT , KUB X-Ray 02/20/23 18:40 IMPRESSION: Ileus. Enteric tube now noted in the stomach. Electronically Signed: Chris Romero MD at 19:12 EDT , KUB X-Ray 02/21/23 05:55 IMPRESSION: Stable ileus. Electronically Signed: Damian Moon DO at 5:47 EDT ,
[2023-02-21 08:23] VITALS: BP 113/73; PULSE 75; RESP 18; TEMP 36.8; O2SAT 94
[2023-02-21] MEDS: Enoxaparin 40 MG/0.4 ML Syringe SC (09:17)
[2023-02-21 10:00] VITALS: O2SAT 95
--- NOTE | 2023-02-21 10:16 | CASEMGMT ---
Addendum entered by Niesha Goldberg 02/21/23 10:34: Updated Marisabel at [facility] of plan for pt to return home after hospital stay. Original Note: NEIL EATON Assessment: Face to Face with pt for initial transition planning/care coordination assessment. NEIL EATON introduced self and role at [facility], pt voices understanding and consents to assessment. Pt is A/O x4 and answers all questions appropriately at this time. Pt lying in bed in no distress with NG tube in. Pt sister Lesli came in room mid assessment and began turning pt. Care providers, pharmacy, and demographics verified/updated. Admitting Dx: ileus, hyponatremia PCP:Tommy Specialists: Pt sees a neuro and uro at [facility]. Preferred Pharmacy: [facility] Insurance: [facility] Prescription Benefit: yes LNOK: Yakelin Bansal, sister; Isadora Paigedoralaurel, sister Living Arrangements: Pt lives in a two story home with a ramp to enter. Pt states his sisters rotate care for him and are on the property very frequently. Pt needs assist with all ADL's and IADL's from sisters. Pt denies concerns at home. Transportation: Pt sister Yakeiln usually provides transportation to medical appts. DME/HHC/SNF: Pt has 3 cane crab crutches, walker, w/c, grab bars, BSC, and raised toilet. Pt is active with [facility] SN for monthly cath changes. Pt denies SNF stays and pt sister states He will not go to one as long as I am alive. Pt states no concerns with going home at time of dc. Pt and sister deny any need for therapy at home. Sister states she knows how to take care of pt. Pt states no further concerns/needs. CM to follow. Advised pt to ask CM if any further question/concerns/needs arise, voices understanding. Pt Goal: Home with MAURA of SN services through [facility]. Plan: Home with MAURA of SN services through [facility]. Pt sister is requesting information for completing DPOA. Updated SW.
[2023-02-21 13:21] VITALS: BP 121/69; PULSE 85; RESP 18; TEMP 36.7; O2SAT 97
--- NOTE | 2023-02-21 16:37 | CHAPLAIN ---
Type of Pastoral Visit _x__ Initial Visit ___ Follow-up Visit ___ On-call Visit ___ General Patient Visit ___ Spiritual Assessment ___ Family Conference ___ Bereavement ___ Rapid Response ___ Code Blue ___ Other (describe below) Pastoral Care Referral From _x__ Patient ___ Family ___ Nurse ___ Physician ___ Gymnastic Teacher ___ Marriage Therapist ___ Other (describe below) Sacrament/Intervention _x__ Active listening ___ Anointing ___ Restorationist ___ Bereavement ___ Communion ___ Liset exploration ___ ___ Life review _x__ Prayer ___ Reconciliation ___ Sacrament of Sick _x__ Supportive presence ___ Wedding ___ Other (describe below) Pastoral Comments patient has been seen before in previous admissions; pt is greeted and he expresses remembrance of previous visits; this engineering teacher notices a special Aviation hat and asks about it; pt talks about his interest in planes and flying history; pt also relates to his interests in current events and reading books; time given to converse and hear about pt; pt welcomes a prayer; no other needs noted
[2023-02-21 16:53] VITALS: BP 130/77; PULSE 89; RESP 18; TEMP 37; O2SAT 98
--- NOTE | 2023-02-21 19:31 | PN.HOSP_ITS ---
Reason for Visit Reason for Visit: Diagnoses Ileus, unspecified (02/20/23) Subjective Subjective Patient was seen and examined today, he does not appear uncomfortable, he still has an NG tube in place, I talked with his sister who is in the room at the time my examination also. Surgery is participating in his medical care at this time, it appears from her note that the patient may not need surgical intervention at this time. Objective Data Objective Data Vital Signs: Vital Signs Temp Pulse Resp BP Pulse Ox O2 Del Method 98.6 F 89 18 130/77 H 98 Room Air 02/21/23 16:53 02/21/23 16:53 02/21/23 16:53 02/21/23 16:53 02/21/23 16:53 02/21/23 16:53 Oxygen Delivery Method Room Air Weight: 54.4 kg Body Mass Index (BMI) 21.2 Intake & Output: Intake and Output for Last 24 Hours 02/19/23 02/20/23 02/21/23 23:59 23:59 23:59 Intake Total 1368.33 / 1368.33 3333.67 / 3333.67 Output Total 1500 / 1500 1100 / 1100 Balance -131.67 / -131.67 2233.67 / 2233.67 Lab / Micro Data Result Diagrams: 02/21/23 04:25 02/21/23 04:25 Labs: Laboratory Results - last 24 hr 02/20/23 16:39: Phosphorus 2.9, Magnesium 2.1 02/20/23 18:55: Urine Color Yellow, Urine Clarity Sl. Cloudy, Urine pH 8.0, Ur Specific Waldron 1.010, Urine Protein 30 H, Urine Glucose (UA) Normal, Urine Ketones 50 H, Urine Occult Blood 25 H, Urine Nitrite Positive H, Urine Bilirubin Negative, Urine Urobilinogen Normal, Ur Leukocyte Esterase 500 H, Urine RBC 0-5 SEEN, Urine WBC 10-25 SEEN, Ur Squamous Epith Cells 0-5 SEEN, Amorphous Sediment 1+ PHOS, Urine Bacteria 1+, Urine Mucus 0 SEEN 02/21/23 04:25: WBC 6.5, RBC 4.26 L, Hgb 12.9 L, Hct 37.1 L, MCV 87.1, MCH 30.3, MCHC 34.8, RDW Std Deviation 40.9, RDW Coeff of Frieda 13.0, Plt Count 340, MPV 9.7, Immature Gran % (Auto) 0.200, Neut % (Auto) 57.3, Lymph % (Auto) 26.7, Collin % (Auto) 14.1 H, Eos % (Auto) 1.2, Baso % (Auto) 0.5, Absolute Neuts (auto) 3.7, Absolute Lymphs (auto) 1.74, Nucleated RBC % 0 02/21/23 04:25: Sodium 133 L, Potassium 3.8, Chloride 105, Carbon Dioxide 23.0, Anion Gap 5, BUN 10, Creatinine 0.63 L, Estim Creat Clear Calc 103.25, Est GFR (MDRD) Af Amer 169, Est GFR (MDRD) Non-Af 140, BUN/Creatinine Ratio 15.8, Glucose 99, Calcium 7.9 L, Total Bilirubin 0.70, AST 12 L, ALT 17, Alkaline Phosphatase 60, Total Protein 6.0 L, Albumin 2.8 L, Globulin 3.2, Albumin/Globulin Ratio 0.9 Micro: Microbiology 02/20/23 18:55 Urine, Catheterized Urine Culture - Preliminary Gram negative kennedy Radiography Diagnostic Testing: Radiology Impression KUB X-Ray 02/21/23 05:55 IMPRESSION: Stable ileus. Electronically Signed: Damian Moon DO at 5:47 EDT , Physical Exam Const alert, oriented x3 and no apparent distress General Appearance: cooperative, well kempt and well developed Orientation / Consciousness: awake, oriented to person, oriented to place and oriented to time HEENT normocephalic, head/scalp atraumatic and moist oral mucous membranes Eyes PERRL, EOMs intact bilaterally and conjunctivae normal Neck supple, no JVD, thyroid normal and no carotid bruits General: trachea midline Resp normal respiratory effort, no retractions, no use of accessory muscles and clear to auscultation bilaterally Auscultation: Negative for rales, rhonchi or wheezes Cardio regular rate, regular rhythm, S1 normal heart sound, S2 normal heart sound, no murmurs, no rub and no gallops GI soft to palpation and non-tender GI Narrative: Bowel sounds are diminished at this time Auscultation: hypoactive bowel sounds Extremity no clubbing, cyanosis or edema Skin no rashes or lesions noted General Skin Exam: no breakdown Neuro oriented x3, CN's II-XII intact bilaterally, no focal motor deficits and no s ensory deficits noted Sensorium / Orientation: awake, alert, oriented to person, oriented to place and oriented to time Speech: speech normal Psych affect normal Assessment & Plan Assessment/Plan (1) Ileus: PLAN: Plan 1. Acute recurrent ileus-patient currently has an NG to suction, he is being seen by general surgery #2 acute cystitis associated with chronic indwelling Bowman catheter with bladder stones-patient will remain on his current antibiotic coverage #3 hyponatremia-continue to monitor sodium, IV fluids will be administered #4 chronic gastroparesis-complicates care, medical course, recovery, and prognosis #5 history of normal pressure hydrocephalus-patient ambulates with special canes, otherwise uses a wheelchair Total clinical time spent by myself addressing the patient's medical issues, reviewing all of his data, and collaborating with patient's care team: 37 minutes Charges/Coding Visit Charges Inpatient E&M: 70779 Subs Hosp L2
[2023-02-21 21:00] VITALS: BP 120/86; PULSE 78; RESP 16; TEMP 36.6; O2SAT 95
[2023-02-22 00:59] VITALS: BMI 21.2
[2023-02-22 03:23] VITALS: BP 118/74; PULSE 82; RESP 14; TEMP 36.6; O2SAT 95
[2023-02-22] MEDS: 0.9% Normal Saline 1,000 ML 125 ML IV ×3 (04:07→21:39)
[2023-02-22] MEDS: LORazepam 2 MG/ML Syringe 0.5 MG IV ×3 (05:34→21:45)
--- NOTE | 2023-02-22 07:42 | CON.PCM.UR_ITS ---
Assessment & Plan Assessment/Plan (1) Bladder stones: PLAN: 57-year-old male multiple medical problems he has chronic Bowman catheter in place he does have a stone in his bladder and also appears that may be a stone in the left ureter some mild left hydronephrosis. This is definitely chronic prior CAT scan that demonstrated both findings. Unfortunately because of his condition and state it would be physically impossible to get the stones out via a transurethral approach because I would not be able to get his legs in stirrups in order to get into the bladder and remove the stones and the stone in the ureter. I think it be too dangerous to approach this with an open surgical approach given his bowel distention and bowel problems. So at this point I do not think I am able to offer the patient any intervention regarding the removal of the stone in the bladder and the ureter. Signing off call me with questions. HPI Consult Data Date of Consult: 02/22/23 HPI Narrative Reason for Consultation: Bladder stone possible ureteral calculi HPI Narrative: JIAN ALTAMIRANO, is a 57 male patient with multiple medical problems he has a chronic indwelling Bowman catheter he presents to the hospital multiple times with abdominal distention and possible bowel obstruction which typically is managed with NG decompression and time. CT scan was done that demonstrates stone within the bladder and also possible stone within the left ureter. Unfortunate this patient is a cachectic noninteractive male with his legs are very thin and cachectic and contorted together he has a Bowman catheter that is changed every month. He is followed by the [facility] urologist as an outpatient. I reviewed the CAT scan and his admission notes [facility] Medical History (Updated 02/22/23 @ 07:[address] Kevyn Oliva MD) Bladder diverticulum Bladder stones Catheter-associated urinary tract infection Chronic indwelling Bowman catheter Gastroparesis History of urinary retention Hydrocephalus Hypertension Hyponatremia Ileus Inguinal hernia Seizures Home Medications linaclotide 72 mcg capsule (Linzess) 290 mcg PO DAILY constipation 07/31/21 [History Last Taken 02/20/23] baclofen 5 mg tablet 5 mg PO TID spasms 07/21/22 [History Last Taken 02/20/23] Allergy/AdvReac Type Severity Reaction Status Date / Time Iodinated Contrast Media Allergy Anaphylaxis Verified 10/29/22 14:20 [Iodinated Contrast Media - IV Dye] nitrofurantoin AdvReac Upset Verified 10/29/22 14:20 Stomach Family History Father Heart disease Kidney stones Prostate disease Brother Kidney stones Other Cancer Peptic ulcer disease Surgical History S/P release of urethral stricture S/P [employer] shunt Social History household members: family Smoking Status: Never smoker alcohol intake: never substance use type: does not use Physical Exam Narrative Noninteractive male does not respond to questions has got an NG tube in place abdomen is slightly distended Bowman catheter is in place he had cachectic contorted legs together. Lab / Micro Data Result Diagrams: 02/21/23 04:25 02/21/23 04:25 Micro: Microbiology 02/20/23 18:55 Urine, Catheterized Urine Culture - Preliminary Gram negative kennedy Reviewed CT scan imaging
[2023-02-22 08:02] VITALS: BP 130/90; PULSE 74; RESP 12; TEMP 36.3; O2SAT 98
--- NOTE | 2023-02-22 10:14 | CASEMGMT ---
Social Work SW in to pt room to discuss HCPOA paperwork. Pt presented soft spoken, groggy and not making eye contact. SW introduced self and role at [facility]. Inquired pt pt would like to complete AD this morning. Pt shook head no. Pt indicated not feeling well this morning. SW left Advanced Directives Rack card and explained pt can set appointment at later time to complete. SW will check in with pt later this day if time allows. JORGE Escamilla
[2023-02-22 11:03] VITALS: O2SAT 94
[2023-02-22] MEDS: Enoxaparin 40 MG/0.4 ML Syringe SC (11:11)
--- NOTE | 2023-02-22 12:51 | PCM.PN.SRG ---
Subjective Subjective patient's sister in the room, she states that patient is on a very specific bowel regimen and it has not been followed while has been hospitalized she states that patient has passed flatus and that is abdomen is much less disteneded Objective Data Objective Data Vital Signs: Vital Signs Temp Pulse Resp BP Pulse Ox O2 Del Method 97.3 F L 74 12 130/90 H 94 Room Air 02/22/23 08:02 02/22/23 08:02 02/22/23 08:02 02/22/23 08:02 02/22/23 11:03 02/22/23 11:03 Oxygen Delivery Method Room Air Weight: 54.4 kg Body Mass Index (BMI) 21.2 Intake & Output: Intake and Output for Last 24 Hours 02/20/23 02/21/23 02/22/23 23:59 23:59 23:59 Intake Total 1368.33 / 1368.33 4429.09 / 4429.09 2185 / 2185 Output Total 1500 / 1500 2300 / 2300 1250 / 1250 Balance -131.67 / -131.67 2129.09 / 2129.09 935 / 935 Lab / Micro Data Attestation: I reviewed the patient's lab results. Result Diagrams: 02/21/23 04:25 02/21/23 04:25 Micro: Microbiology 02/20/23 18:55 Urine, Catheterized Urine Culture - Final Proteus mirabilis Physical Exam Const alert Resp normal respiratory effort GI GI Narrative: abdomen is soft and benign Assessment & Plan Assessment/Plan (1) Ileus: PLAN: see below PLAN: Plan will obtain small bowel series with gastrografin - if all contrast goes through, can d/c NG tube and then d/c to home
--- NOTE | 2023-02-22 13:15 | RAD_ITS ---
CLINICAL HISTORY: Male, 57 years old. Abdominal pain and distention, possible obstruction PROCEDURE: Small bowel follow-through with Gastrografin No fluoroscopy time, 8 overhead images obtained over a 16 hour timeframe. TECHNIQUE: (All elements of maximal sterile barrier technique followed, including US elements as applicable) Laborer Syrup Machine film demonstrates borderline distended air-filled loops of small and large bowel in all 4 quadrants of the abdomen with retained stool in the rectum. There is a nonspecific chunky calcification the right hemipelvis of uncertain etiology. There is end-stage left hip arthrosis with a new superior pseudojoint having been performed above the normal acetabular joint space with femoral head flattening and subchondral changes consistent with AVN. Patient has NG tube tip in the body the stomach and a INVASIVE PHYSICIAN shunt tube noted. Initial and 2.5 hour films showed persistence of Gastrografin within the stomach. However, the overnight films show that the Gastrografin moved through the small and into the large bowel and the overnight 16.5 hour image shows contrast throughout the colon. This suggests that there is no obstruction, that there is small and large bowel ileus. RAD/Small Bowel Series Only IMPRESSION: Although transit time is abnormal at somewhere around 16.5 hours, the Gastrografin does make it into the colon. No demonstrated obstruction, findings are system with both small and large bowel ileus. Electronically Signed: Sebastián Marcial MD at 8:55 EDT ,
[2023-02-22 14:26] VITALS: BP 138/86; PULSE 79; RESP 18; TEMP 36.8; O2SAT 98
[2023-02-22 20:30] VITALS: BP 140/90; PULSE 88; RESP 18; TEMP 36.8; O2SAT 98
--- NOTE | 2023-02-22 20:50 | PN.HOSP_ITS ---
Reason for Visit Reason for Visit: Diagnoses Ileus, unspecified (02/20/23) Calculus in bladder (02/20/23) Subjective Subjective Patient was seen and examined today, he still has an NG in place, a small bowel follow-through was ordered by surgery today and it is not resulted at the time of this dictation. Patient has no complaints of any nausea or abdominal pain at this time. Objective Data Objective Data Vital Signs: Vital Signs Temp Pulse Resp BP Pulse Ox O2 Del Method 98.3 F 88 18 140/90 H 98 Room Air 02/22/23 20:30 02/22/23 20:30 02/22/23 20:30 02/22/23 20:30 02/22/23 20:30 02/22/23 20:30 Oxygen Delivery Method Room Air Weight: 54.4 kg Body Mass Index (BMI) 21.2 Intake & Output: Intake and Output for Last 24 Hours 02/20/23 02/21/23 02/22/23 23:59 23:59 23:59 Intake Total 1368.33 / 1368.33 4429.09 / 4429.09 2441.25 / 2441.25 Output Total 1500 / 1500 2300 / 2300 3650 / 3650 Balance -131.67 / -131.67 2129.09 / 2129.09 -1208.75 / -1208.75 Lab / Micro Data Result Diagrams: 02/21/23 04:25 02/21/23 04:25 Micro: Microbiology 02/20/23 18:55 Urine, Catheterized Urine Culture - Final Proteus mirabilis Physical Exam Narrative alert, oriented x3 and no apparent distress General Appearance: cooperative, well kempt and well developed Orientation / Consciousness: awake, oriented to person, oriented to place and oriented to time HEENT normocephalic, head/scalp atraumatic and moist oral mucous membranes Eyes PERRL, EOMs intact bilaterally and conjunctivae normal Neck supple, no JVD, thyroid normal and no carotid bruits General: trachea midline Resp normal respiratory effort, no retractions, no use of accessory muscles and clear to auscultation bilaterally Auscultation: Negative for rales, rhonchi or wheezes Cardio regular rate, regular rhythm, S1 normal heart sound, S2 normal heart sound, no murmurs, no rub and no gallops GI soft to palpation and non-tender, NG tube in place GI Narrative: Bowel sounds are diminished at this time Auscultation: hypoactive bowel sounds Extremity no clubbing, cyanosis or edema Skin no rashes or lesions noted General Skin Exam: no breakdown Neuro oriented x3, CN's II-XII intact bilaterally, no focal motor deficits and no sensory deficits noted Sensorium / Orientation: awake, alert, oriented to person, oriented to place and oriented to time Speech: speech normal Psych affect normal Assessment & Plan Assessment/Plan (1) Ileus: PLAN: Plan 1. Acute recurrent ileus-patient currently has an NG to suction, he is being seen by general surgery #2 acute cystitis associated with chronic indwelling Bowman catheter with bladder stones-patient will remain on his current antibiotic coverage #3 hyponatremia-continue to monitor sodium, IV fluids will be administered #4 chronic gastroparesis-complicates care, medical course, recovery, and pro gnosis #5 history of normal pressure hydrocephalus-patient ambulates with special canes, otherwise uses a wheelchair Total clinical time spent by myself addressing the patient's medical issues, reviewing all of his data, and collaborating with patient's care team: 35 minutes Charges/Coding Visit Charges Inpatient E&M: 64799 Subs Hosp L2
[2023-02-22] MEDS: 0.9% Saline Lock 10 ML Syringe IV (21:45)
[2023-02-23 02:50] VITALS: BP 122/83; PULSE 95; RESP 18; TEMP 37.1; O2SAT 95
[2023-02-23 05:21] VITALS: BMI 21.2
[2023-02-23] MEDS: 0.9% Normal Saline 1,000 ML 125 ML IV ×2 (05:39→15:42)
[2023-02-23 07:10] VITALS: O2SAT 97
[2023-02-23 08:35] VITALS: BP 139/82; PULSE 96; RESP 18; TEMP 36.6; O2SAT 96
[2023-02-23] MEDS: Enoxaparin 40 MG/0.4 ML Syringe SC (08:42)
[2023-02-23 10:38] LABS: Pathologist Review Reviewed
[2023-02-23] MEDS: Bisacodyl 10 MG Suppository RC (13:05)
[2023-02-23 15:30] VITALS: BP 124/76; PULSE 83; RESP 18; TEMP 36.6; O2SAT 99
--- NOTE | 2023-02-23 16:39 | PCM.PN.SRG ---
Subjective Subjective patient denies abdominal pain has been passing flatus and had a bowel movement Objective Data Objective Data Vital Signs: Vital Signs Temp Pulse Resp BP Pulse Ox O2 Del Method 98 F 83 18 124/76 H 99 Room Air 02/23/23 15:30 02/23/23 15:30 02/23/23 15:30 02/23/23 15:30 02/23/23 15:30 02/23/23 15:30 Oxygen Delivery Method Room Air Weight: 54.4 kg Body Mass Index (BMI) 21.2 Intake & Output: Intake and Output for Last 24 Hours 02/21/23 02/22/23 02/23/23 23:59 23:59 23:59 Intake Total 4429.09 / 4429.09 3495.00 / 3495.00 2310 / 2310 Output Total 2300 / 2300 3650 / 4050 1250 / 1250 Balance 2129.09 / 2129.09 -155.00 / -555.00 1060 / 1060 Lab / Micro Data Attestation: I reviewed the patient's lab results. Result Diagrams: 02/21/23 04:25 02/21/23 04:25 Labs: Laboratory Results - last 24 hr 02/20/23 16:39: Diff Path Review Reviewed Micro: Microbiology 02/20/23 18:55 Urine, Catheterized Urine Culture - Final Proteus mirabilis Radiography Diagnostic Testing: Radiology Impression Small Bowel X-Ray 02/22/23 13:15 IMPRESSION: Although transit time is abnormal at somewhere around 16.5 hours, the Gastrografin does make it into the colon. No demonstrated obstruction, findings are system with both small and large bowel ileus. Electronically Signed: Sebastián Marcial MD at 8:55 EDT , Physical Exam Const alert General Appearance: cooperative Neck supple GI GI Narrative: abdomen is soft and benign Assessment & Plan Assessment/Plan (1) Ileus: PLAN: see below PLAN: Plan patient with known ileus no bowel obstruction No surgical intervention required I am signing off this case, please re-consult general surgery if patient's status changes
--- NOTE | 2023-02-23 20:31 | PN.HOSP_ITS ---
Reason for Visit Reason for Visit: Diagnoses Ileus, unspecified (02/20/23) Calculus in bladder (02/20/23) Subjective Subjective Patient was seen and examined today, his NG tube was removed by general surgery and he is now on liquids. I had the nurses place him back on his home meds. Objective Data Objective Data Vital Signs: Vital Signs Temp Pulse Resp BP Pulse Ox O2 Del Method 98 F 83 18 124/76 H 99 Room Air 02/23/23 15:30 02/23/23 15:30 02/23/23 15:30 02/23/23 15:30 02/23/23 15:30 02/23/23 15:30 Oxygen Delivery Method Room Air Weight: 54.4 kg Body Mass Index (BMI) 21.2 Intake & Output: Intake and Output for Last 24 Hours 02/21/23 02/22/23 02/23/23 23:59 23:59 23:59 Intake Total 4429.09 / 4429.09 3495.00 / 3495.00 2310 / 2310 Output Total 2300 / 2300 3650 / 4050 2050 / 2050 Balance 2129.09 / 2129.09 -155.00 / -555.00 260 / 260 Lab / Micro Data Result Diagrams: 02/21/23 04:25 02/21/23 04:25 Labs: Laboratory Results - last 24 hr 02/20/23 16:39: Diff Path Review Reviewed Micro: Microbiology 02/20/23 18:55 Urine, Catheterized Urine Culture - Final Proteus mirabilis Radiography Diagnostic Testing: Radiology Impression Small Bowel X-Ray 02/22/23 13:15 IMPRESSION: Although transit time is abnormal at somewhere around 16.5 hours, the Gastrografin does make it into the colon. No demonstrated obstruction, findings are system with both small and large bowel ileus. Electronically Signed: Sebastián Marcial MD at 8:55 EDT , Physical Exam Narrative alert, oriented x3 and no apparent distress General Appearance: cooperative, well kempt and well developed Orientation / Consciousness: awake, oriented to person, oriented to place and oriented to time HEENT normocephalic, head/scalp atraumatic and moist oral mucous membranes Eyes PERRL, EOMs intact bilaterally and conjunctivae normal Neck supple, no JVD, thyroid normal and no carotid bruits General: trachea midline Resp normal respiratory effort, no retractions, no use of accessory muscles and clear to auscultation bilaterally Auscultation: Negative for rales, rhonchi or wheezes Cardio regular rate, regular rhythm, S1 normal heart sound, S2 normal heart sound, no murmurs, no rub and no gallops GI soft to palpation and non-tender GI Narrative: Bowel sounds are diminished at this time Auscultation: hypoactive bowel sounds Extremity no clubbing, cyanosis or edema Skin no rashes or lesions noted General Skin Exam: no breakdown Neuro oriented x3, CN's II-XII intact bilaterally, no focal motor deficits and no sensory deficits noted Sensorium / Orientation: awake, alert, oriented to person, oriented to place and oriented to time Speech: speech normal Psych affect normal Assessment & Plan Assessment/Plan (1) Ileus: PLAN: Plan 1. Acute recurrent ileus-patient currently has an NG to suction, he is being seen by general surgery #2 acute cystitis from Proteus mirabilis associated with chronic indwelling Bowman catheter with bladder stones-patient will remain on his current antibiotic coverage #3 hyponatremia-continue to monitor sodium, IV fluids will be administered #4 chronic gastroparesis-complicates care, medical course, recovery, and prognosis #5 history of normal pressure hydrocephalus-patient ambulates with special canes, otherwise uses a wheelchair #6 bladder stone-urology states that it would be difficult to remove the stone at this time, patient is to follow-up with his urologist who is at the [facility] Total clinical time spent by myself addressing the patient's medical issues, reviewing all of his data, and collaborating with patient's care team: 36 minutes Charges/Coding Visit Charges Inpatient E&M: 18306 Subs Hosp L2
[2023-02-23 21:00] VITALS: BP 146/99; PULSE 79; RESP 18; TEMP 36.8; O2SAT 98
[2023-02-23] MEDS: Baclofen 10 MG Tablet 5 MG PO (21:53)
[2023-02-24 03:00] VITALS: BP 137/100; PULSE 83; RESP 18; TEMP 36.8; O2SAT 98; BMI 21.2
[2023-02-24] MEDS: 0.9% Normal Saline 1,000 ML 125 ML IV (05:16)
[2023-02-24] MEDS: Baclofen 10 MG Tablet 5 MG PO (05:16)
[2023-02-24 05:53] VITALS: BMI 21.2
[2023-02-24 10:07] VITALS: BP 154/98; PULSE 91; RESP 16; TEMP 36.2; O2SAT 100
[2023-02-24] MEDS: Enoxaparin 40 MG/0.4 ML Syringe SC (10:26)
[2023-02-24] MEDS: Cefdinir 300 MG Capsule PO (10:34)
--- NOTE | 2023-02-24 11:24 | DCINST_ITS ---
Discharge Instructions Diet Discharge Diet: No restrictions Activity Discharge Activity: - (Resume previous activity level) Follow Up Care Test Results: Test results from this visit will be discussed in further detail at your follow- up appointment, if applicable. Discharge Plan Admission Admit Date/Time: 02/20/23 19:51 Primary Reason for Your Visit: Ileus, urinary tract infection Attending Provider: Geo Mercer Primary Care Provider: Lyndon Sanders Consulting Providers: Laura Kidd ; Nikki Celestin ; Kevyn Oliva Instructions Additional Instructions / Restrictions: Follow-up with your urologist concerning your bladder stone Discharge Orders/Prescriptions Prescriptions: New cefdinir 300 mg Capsule 300 mg PO BID Qty: 9 0RF Continued Linzess 72 mcg capsule 290 mcg PO DAILY Label Comments: TAKE 1 CAP BY MOUTH ONCE DAILY ON EMPTY STOMACH SWALLOW WHOLE DO NOT CHEW/CRUSH baclofen 5 MG tablet 5 mg PO TID Rx Instructions: Hold for sedation/lethargy Referrals / Follow Up: Lyndon Sanders MD [Primary Care Provider] - See Referral Note (At next scheduled appointment time) Disposition Disposition (needs filled in before D/C Order can be placed): Home Health Service
--- NOTE | 2023-02-24 11:28 | PCM.DC.SUM ---
Providers Date of Admission: 02/20/23 Date of Discharge: 02/24/23 Primary Care Physician: Dr. Lyndon Sanders MD Consultations 02/20/23 20:31 Consult: General Surgery Routine Consulting Provider: Laura Kidd Reason for Consult: Ileus, hx frequent SBO EMERGENT Consult: No Notified: Yes Date Notified: 02/20/23 Time Notified: 19:54 Method of Notification: Text 02/21/23 07:00 Consult: Urology Routine Consulting Provider: Kevyn Oliva Reason for Consult: Complicated UTI/hannon w/ R sided hydro/hydroureter EMERGENT Consult: No Notified: Yes Date Notified: 02/20/23 Time Notified: 10:10 Method of Notification: Verbal Method of Consult:: In-Person Reason For Visit: ILEUS, HYPONATREMIA Diagnosis Discharge Diagnosis (1) Ileus: Status: Acute Code(s): K56.7 - Ileus, unspecified Plan 1. Acute recurrent ileus-patient currently has an NG to suction, he is being seen by general surgery #2 acute cystitis from Proteus mirabilis associated with chronic indwelling Hannon catheter with bladder stones-patient will remain on his current antibiotic coverage #3 hyponatremia-continue to monitor sodium, IV fluids will be administered #4 chronic gastroparesis-complicates care, medical course, recovery, and prognosis #5 history of normal pressure hydrocephalus-patient ambulates with special canes, otherwise uses a wheelchair #6 bladder stone-urology states that it would be difficult to remove the stone at this time, patient is to follow-up with his urologist who is at the [facility] Total clinical time spent by myself addressing the patient's medical issues, reviewing all of his data, and collaborating with patient's care team: 36 minutes Medications at Discharge Home Medications linaclotide 72 mcg capsule (Linzess) 290 mcg PO DAILY constipation 07/31/21 baclofen 5 mg tablet 5 mg PO TID spasms 07/21/22 cefdinir 300 mg capsule 300 mg PO BID #9 caps 02/24/23 Hospital Course Operations None Procedures None Summary of Care Provided Minutes Spent on Discharge: 32 Hospital Course: This 57-year-old white male was seen in the emergency room at [facility] with chief complaint of generalized abdominal pain, patient is cared for by his sister due to debility, he had been admitted to the hospital previously for small bowel obstruction. Patient has a chronic Hannon for urinary retention. Work-up in the emergency room showed the patient had an ileus, an NG tube was inserted and he was seen by general surgery and admitted to [facility], patient was also felt to have acute cystitis associated with his chronic indwelling Hannon, he was treated with IV antibiotics. Patient improved over the next several days and his NG was able to be removed. On 02/24/2023, patient was seen and examined: On examination he appeared in good health and spirits. Vital signs as documented. Skin warm and dry and without overt rashes. Neck without JVD, neck was supple, trachea midline, thyroid was normal. Lungs clear bilaterally, normal air movement was noted. Heart exam notable for regular rhythm, normal sounds and absence of murmurs, rubs or gallops. Abdomen unremarkable and without evidence of organomegaly, masses, or abdominal aortic enlargement. Bowel sounds are present, abdomen is not distended. Extremities nonedematous, no cyanosis was noted, no clubbing was noted. Neuro: Cranial nerves II through XII are grossly intact, no focal motor deficits were noted, sensation to light touch and pinprick intact, motor exam 5/5 throughout. Psych: Patient is alert and oriented x3, he does not appear anxious or depressed, he does not appear agitated. Patient appear to be stable for discharge home on 02/24/2023 Weight / BMI Weight Weight: 54.4 kg Body Mass Index (BMI) 21.2 ABG / Lab / Microbiology Data Result Diagrams: 02/21/23 04:25 02/21/23 04:25 Microbiology: Microbiology 02/20/23 18:55 Urine, Catheterized Urine Culture - Final Proteus mirabilis D/C Instructions Discharge Diet: No restrictions Meaningful Use Info Meaningful Use Diagnoses (Choose all that apply): None applicable Discharge Plan Admission Admit Date/Time: 02/20/23 19:51 Primary Reason for Your Visit: Ileus, urinary tract infection Attending Provider: Geo Mercer Primary Care Provider: Lyndon Sanders Consulting Providers: Laura Kidd ; Nikki Celestin ; Kevyn Oliva Instructions Additional Instructions / Restrictions: Follow-up with your urologist concerning your bladder stone Discharge Orders/Prescriptions Prescriptions: New cefdinir 300 mg Capsule 300 mg PO BID Qty: 9 0RF Continued Linzess 72 mcg capsule 290 mcg PO DAILY Label Comments: TAKE 1 CAP BY MOUTH ONCE DAILY ON EMPTY STOMACH SWALLOW WHOLE DO NOT CHEW/CRUSH baclofen 5 MG tablet 5 mg PO TID Rx Instructions: Hold for sedation/lethargy Referrals / Follow Up: Lyndon Sanders MD [Primary Care Provider] - See Referral Note (At next scheduled appointment time) Disposition Disposition (needs filled in before D/C Order can be placed): Home Health Service Charges/Coding Visit Charges Inpatient E&M: 99486 Disch Hosp >30min
--- NOTE | 2023-02-24 11:51 | CASEMGMT ---
Notified Marisabel at [facility] that pt will dc today.
--- NOTE | 2023-02-24 12:59 | PHA.DC.MC ---
Pharmacy Service has performed discharge medication reconciliation and counseling for this patient. The patient was counseled on the following discharge medications and changes in medications for homegoing were reviewed. 1. OMNICEF The Reason for Use, instructions for use, and potential side effects were reviewed for all new medications. The patient's questions regarding all of their medications were answered. The patient's sister was able to verbally demonstrate an understanding of the patient's discharge medications. Home Medications linaclotide 72 mcg capsule (Linzess) 290 mcg PO DAILY constipation 07/31/21 baclofen 5 mg tablet 5 mg PO TID spasms 07/21/22 cefdinir 300 mg capsule 300 mg PO BID #9 caps 02/24/23
--- NOTE | 2023-02-24 13:19 | CASEMGMT ---
Social work SW met with pt and introduced self and role of SW. SW spoke with pt regarding advance directives and per pt request, SW assisted pt in completing Living Will and HCPOA naming his sister Lesli Bansal. Copy placed on pt chart and original given to pt. JORGE Hartley
[2023-02-24 14:40] VITALS: BP 137/84; PULSE 82; RESP 16; TEMP 37.1; O2SAT 98
== END 2023-02-24 15:26 | disposition home health service (06) | DRG 699 ==
LOC: ED 19:29 → MS3 20:11
PROVIDERS: Admitting Provider Family Medicine; Emergency Provider Emergency Medicine; PCP Family Medicine; Visit Provider Internal Medicine
DX: T83.511A Infection and inflammatory reaction due to indwelling urethral catheter, initial encounter (principal); K56.0 Paralytic ileus; G91.2 (Idiopathic) normal pressure hydrocephalus; E87.1 Hypo-osmolality and hyponatremia; N13.6 Pyonephrosis; N30.00 Acute cystitis without hematuria; F44.4 Conversion disorder with motor symptom or deficit; I10 Essential (primary) hypertension; K31.84 Gastroparesis; X58.XXXA Exposure to other specified factors, initial encounter; B96.4 Proteus (mirabilis) (morganii) as the cause of diseases classified elsewhere; N31.9 Neuromuscular dysfunction of bladder, unspecified; N21.0 Calculus in bladder; Z99.3 Dependence on wheelchair; Z98.2 Presence of cerebrospinal fluid drainage device; Z79.899 Other long term (current) drug therapy; Z87.19 Personal history of other diseases of the digestive system
CPT/HCPCS: 36415; 74018; 74176; 74250; 80053; 81001; 83605; 83690; 83735; 84100; 85025; 87077; 87086; 87088; 87186; 97162; 97166; 99283; J7030; A4216

== ENCOUNTER 2023-03-30 16:34 | Emergency (ER) | payer MEDICARE, MEDICAID, SELFPAY ==
[2023-03-30 16:35] VITALS: BP 141/98; PULSE 80; RESP 16; TEMP 36.4; O2SAT 100
--- NOTE | 2023-03-30 17:41 | EX.ED.GUMALE ---
HPI History of Present Illness Chief Complaint: Bowman C/O Narrative Narrative: 57-year-old male presenting with dark urine. Family concern for UTI. Patient has history of indwelling Bowman catheter because he cannot void normally. He has not any fevers, chills, nausea, vomiting. He is not having abdominal pain. Patient's family called his doctor's office but he is not on vacation so he was deferred to the ER. Family member states that she has been getting lots of fluids into him. His urinary output fluctuates. He had 6 cups of water prior to coming in today. [facility] Medical History Bladder diverticulum Bladder stones Catheter-associated urinary tract infection Chronic indwelling Bowman catheter Gastroparesis History of urinary retention Hydrocephalus Hypertension Hyponatremia Ileus Inguinal hernia Normal pressure hydrocephalus Seizures Home Medications linaclotide 72 mcg capsule (Linzess) 290 mcg PO DAILY constipation 07/31/21 [History Last Taken 02/20/23] baclofen 5 mg tablet 5 mg PO TID spasms 07/21/22 [History Last Taken 02/20/23] cefdinir 300 mg capsule 300 mg PO BID #9 caps 02/24/23 [Rx Last Taken Unknown] Allergy/AdvReac Type Severity Reaction Status Date / Time Iodinated Contrast Media Allergy Anaphylaxis Verified 03/30/23 16:35 [Iodinated Contrast Media - IV Dye] nitrofurantoin AdvReac Upset Verified 03/30/23 16:35 Stomach Family History Father Heart disease Kidney stones Prostate disease Brother Kidney stones Other Cancer Peptic ulcer disease Surgical History S/P release of urethral stricture S/P INSOLE BOTTOM FILLER shunt INSOLE BOTTOM FILLER (ventriculoperitoneal) shunt status Social History household members: family Smoking Status: Never smoker alcohol intake: never substance use type: does not use ROS ROS ED Constitutional Constitutional ED: Denies chills or fever(s) Eyes Eyes: Denies change in vision or other ENT ENT ED: Denies rhinorrhea or sore throat Cardiovascular Cardiovascular: Denies chest pain Respiratory/Chest Respiratory/Chest: Denies cough or dyspnea Gastrointestinal Gastrointestinal: Denies abdominal pain or constipation Genitourinary Genitourinary ED: Reports other Details: Dark urine Musculoskeletal Musculoskeletal: Denies arthralgias or back pain Integumentary Denies abscess or rash Neurologic Neurologic: Denies headache(s) or paresthesias EXAM Physical Exam Const Vital Signs: 03/30/23 16:35 Temperature 97.5 F L Temperature Source Temporal Pulse Rate 80 Respiratory Rate 16 Blood Pressure 141/98 H Blood Pressure Mean 112 Pulse Ox 100 Oxygen Delivery Method Room Air Positive well nourished General Appearance ED: NAD Resp normal respiratory effort Cardio regular rate and regular rhythm GI non-tender Narrative: Bowman catheter in place. Dark urine feels the Bowman catheter bag Back/Spine no CVA tenderness Neuro Sensorium / Orientation: alert Psych Psych Narrative: Mental status at baseline MDM MDM MDM Narrative Medical decision making narrative: 57-year-old male presenting with indwelling Bowman catheter. It does appear to be cloudy. Patient's sister concerned that this seems to be changed. She states he only gets 1 a month. Patient was referred to the ER by his primary care's office. He gets his urologic care from [facility] she states include 1. He has not any fevers, chills, nausea, vomiting. He denies abdominal pain or flank pain. CBC to assess white blood cell count, hemoglobin, platelets, differential. BMP to assess renal function, electrolytes, glucose, anion gap. Urinalysis to assess for UTI. CBC and BMP are unremarkable with exception of a sodium of 129. Urinalysis shows 500 leukocyte esterase, 10-25 RBCs, 25-50 WBCs, 0-5 squamous epithelial cells. No bacteria seen. I will send this for culture. We will hold antibiotics for now. Return precautions discussed. Discussed with the patient and his sister to check online for culture results. Return for any new or worsening symptoms. Impression: 1. Bowman catheter care Lab Data Attestation: I reviewed the patient's lab results. Labs: Laboratory Results - last 24 hr 03/30/23 03/30/23 03/30/23 18:12 18:12 19:43 WBC 7.0 RBC 4.62 Hgb 13.7 Hct 40.4 MCV 87.4 MCH 29.7 MCHC 33.9 RDW Std Deviation 39.8 RDW Coeff of Frieda 12.4 Plt Count 382 MPV 9.6 Immature Gran % (Auto) 0.100 Neut % (Auto) 49.5 Lymph % (Auto) 34.9 [place] % (Auto) 12.6 H Eos % (Auto) 2.3 Baso % (Auto) 0.6 Absolute Neuts (auto) 3.5 Absolute Lymphs (auto) 2.46 Nucleated RBC % 0 Sodium 129 L Potassium 3.6 Chloride 96 L Carbon Dioxide 26.0 Anion Gap 7 BUN 11 Creatinine 0.57 L Est GFR (MDRD) Af Amer 191 Est GFR (MDRD) Non-Af 158 BUN/Creatinine Ratio 19.3 Glucose 98 Calcium 8.3 L Urine Color Yellow Urine Clarity Sl. Cloudy Urine pH 7.0 Ur Specific [place] 1.005 Urine Protein 15 H Urine Glucose (UA) Normal Urine Ketones 5 H Urine Occult Blood 150 H Urine Nitrite Negative Urine Bilirubin Negative Urine Urobilinogen Normal Ur Leukocyte Esterase 500 H Urine RBC 10-25 SEEN Urine WBC 25-50 SEEN Ur Squamous Epith Cells 0-5 SEEN Amorphous Sediment 1+ PHOS Urine Bacteria 0 SEEN Urine Mucus 0 SEEN Discharge Plan Triage Chief Complaint: Bowman C/O ED Provider: Rivera Dodge Dx/Rx/DC Orders Instructions: ED Bowman Catheter, Care Prescriptions: No Action Linzess 72 mcg capsule 290 mcg PO DAILY Label Comments: TAKE 1 CAP BY MOUTH ONCE DAILY ON EMPTY STOMACH SWALLOW WHOLE DO NOT CHEW/CRUSH baclofen 5 MG tablet 5 mg PO TID Rx Instructions: Hold for sedation/lethargy cefdinir 300 mg Capsule 300 mg PO BID Qty: 9 0RF Primary Care Provider: Lyndon Sanders Referrals: Lyndon Sanders MD [Primary Care Provider] - Disposition Disposition: Home, Self Care
[2023-03-30 18:23] LABS: Absolute Lymphocyte Count 2.46 X10^3/uL (0.83-4.51); Absolute Neutrophil Count 3.5 X10^3/uL (2.0-7.7); Basophil# 0.04 X10^3/uL; Basophil% 0.6 % (0-1); Eosinophil# 0.16 X10^3/uL; Eosinophils% 2.3 % (0-5); Hematocrit 40.4 % (40-54); Hemoglobin 13.7 g/dL (13.0-16.5); Lymphocyte # 2.46 X10^3/ul (0.83-4.51); Lymphocyte % 34.9 % (19-41); Mean Corp Hgb Conc 33.9 g/dL (32-36); Mean Corpuscular Hgb 29.7 pg (27.0-32.0); Mean Corpuscular Volume 87.4 fL (80-94); Mean Platelet Vol. 9.6 fl (6.2-12.0); Monocyte# 0.89 X10^3/uL; Monocyte% 12.6 % (0-10); NRBC Flagged by Analyzer 0 % (0-5); Neutrophil # 3.48 X10^3/uL (2.7-7.7); Neutrophil % 49.5 % (47-70); Platelet Count 382 K/mm3 (150-450); RBC Distribution Width CV 12.4 % (11.6-14.6); RBC Distribution Width SD 39.8 fl (35.1-43.9); Red Blood Count 4.62 M/mm3 (4.6-6.2)
[2023-03-30 18:35] LABS: BUN 11 mg/dL (7-18); Creatinine, Serum 0.57 mg/dL (0.70-1.30); Glucose 98 mg/dL (74-106)
[2023-03-30 18:36] LABS: Anion Gap 7 (5-15); BUN/Creat Ratio 19.3 RATIO (10-20); Calcium,Total 8.3 mg/dL (8.5-10.1); Chloride 96 mmol/L (98-107); EST Glomerular Filtration Rate 158 mL/min (>60); Est Glom Filt Rate - Afr Amer 191 mL/min (>60); Potassium 3.6 mmol/L (3.5-5.1); Sodium Level 129 mmol/L (136-145)
[2023-03-30 19:51] LABS: Bacteria 0 SEEN /hpf (None Seen); Mucous, Urine 0 SEEN /hpf (<or=2+)
[2023-03-30 19:55] LABS: Color, Urine Yellow (Yellow); Glucose, Dipstick Normal (Normal); Ketone-Dipstick 5 mg/dl (Negative); Leukocyte Esterase-Dipstick 500 /ul (Negative); Nitrite-Dipstick Negative (Negative); Occult Blood-Urine 150 /ul (Negative); Protein-Dipstick 15 mg/dl (Negative); Specific Gravity, Urine 1.005 (1.002-1.030); Urine Bilirubin Dipstick Negative (Negative); Urine Clarity Sl. Cloudy (Clear); Urine Urobilinogen Normal (Normal)
[2023-03-30 20:18] LABS: Amorphous Sediment 1+ PHOS; Red Blood Cells-Urine 10-25 SEEN /hpf (0-5); Squamous Epithelial Cells - UA 0-5 SEEN /hpf (0-5); White Blood Cells 25-50 SEEN /hpf (0-5)
[2023-03-30 20:34] VITALS: RESP 18
== END 2023-03-30 21:21 | disposition home or self-care (01) ==
PROVIDERS: Emergency Provider Student in an Organized Health Care Education/Training Program; PCP Family Medicine; Visit Provider Student in an Organized Health Care Education/Training Program
DX: R82.89 Other abnormal findings on cytological and histological examination of urine (principal)
CPT/HCPCS: 51702; 99284; 80048; 81001; 85025; 87077; 87086; 87088; 87186; A4216

== ENCOUNTER 2023-04-01 23:33 | Inpatient (IN) | payer MEDICARE, MEDICAID, SELFPAY ==
[2023-04-01 23:35] VITALS: BP 128/88; PULSE 103; RESP 18; TEMP 36.7; O2SAT 97; BMI 22.7
--- NOTE | 2023-04-01 23:48 | EKG12_ITS ---
Test Reason : DYSRHYTHMIA Blood Pressure : / mmHG Vent. Rate : 103 BPM Atrial Rate : 103 BPM P-R Int : 138 ms QRS Dur : 094 ms QT Int : 332 ms P-R-T Axes : 055 043 045 degrees QTc Int : 434 ms Sinus tachycardia Otherwise normal ECG Confirmed by ALFONSO DONOVAN, RALPH ([id number]), web editor DAVE MARQUEZ ([id number]) on 04/04/2023 11:10:52 AM Referred By: PL Confirmed By:RALPH HAMILTON MD
--- NOTE | 2023-04-01 23:53 | EX.ED.DYSGE1 ---
HPI History of Present Illness Chief Complaint: Nausea/Vomiting Informant: patient and friend Narrative Narrative: Patient presents with concern for ileus or obstruction. This patient has a history of hydrocephalus with SPINNING MACHINE TENDER shunt. This was most recently evaluated by [facility] in November and they saw no issues with this. He has chronic indwelling Bowman. He has a history of frequent UTIs. He has been having problems with frequent ileus and obstructions. He has never needed surgery for these. He also has known gastroparesis and poor peristalsis. His last admission was about 2 months ago. He started to get mild nausea today at dinnertime. He ate a meal. After this he had more abdominal cramping and pain. He had some stool output over the last couple days but it was a little less than normal. He almost always needs an enema manual stimulation and is also on Linzess for this. There have been no fevers or chills. No blood in the stool. His abdomen is normally quite thin and it is slightly distended this evening. This is a typical pattern that he has presented with. [facility] Medical History Bladder diverticulum Bladder stones Catheter-associated urinary tract infection Chronic indwelling Bowman catheter Gastroparesis History of urinary retention Hydrocephalus Hypertension Hyponatremia Ileus Inguinal hernia Normal pressure hydrocephalus Seizures Home Medications linaclotide 72 mcg capsule (Linzess) 290 mcg PO DAILY constipation 07/31/21 [History Last Taken 02/20/23] baclofen 5 mg tablet 5 mg PO TID spasms 07/21/22 [History Last Taken 02/20/23] Allergy/AdvReac Type Severity Reaction Status Date / Time Iodinated Contrast Media Allergy Anaphylaxis Verified 04/01/23 23:35 [Iodinated Contrast Media - IV Dye] nitrofurantoin AdvReac Upset Verified 04/01/23 23:35 Stomach Family History Father Heart disease Kidney stones Prostate disease Brother Kidney stones Other Cancer Peptic ulcer disease Surgical History S/P release of urethral stricture S/P SPINNING MACHINE TENDER shunt SPINNING MACHINE TENDER (ventriculoperitoneal) shunt status Social History household members: family Smoking Status: Never smoker alcohol intake: never substance use type: does not use ROS ROS ED ROS Narrative A complete review of systems was performed and is negative except as documented in the history of present illness. Some specific details below. Constitutional: No recent fevers or chills. He felt fine until earlier this evening. EYE: No visual complaints or pain. ENT: No difficulty swallowing. No pain. No GERD. CV: No chest pain or palpitations. Respiratory: No dyspnea. No hemoptysis. No difficulty taking breaths. GI: Please see history of present illness. : Chronic indwelling Bowman. Was checked for UTI 2 days ago. No bacteria were seen. Antibiotics were held pending culture. I just reviewed his culture and he is positive. Sensitive to everything except Macrobid. Musculoskeletal: No recent trauma. No pains. Skin: No rash. Nondiaphoretic. Neuro: No focal weakness or numbness. Endocrine: No polyuria or polydipsia. EXAM Physical Exam Const Vital Signs: 04/01/23 23:35 04/02/23 00:52 Temperature 98.1 F Temperature Source Temporal Pulse Rate 103 H 91 Respiratory Rate 18 18 Blood Pressure 128/88 H 123/89 H Blood Pressure Mean 101 100 Pulse Ox 97 95 Oxygen Delivery Method Room Air Room Air MDM MDM MDM Narrative Medical decision making narrative: Patient CBC shows elevated white count and elevated hemoglobin. This may be due to both infection and some component of dehydration. Platelets are also up. He is known to have a UTI based on recent cultures and I did initiate therapy for this. Electrolytes show mild low sodium. It is a little lower than what he normally is. Creatinine is 1.3. Glucose is a little up at 159. Patient's lactic acid is normal. Liver function test showed no marked abnormalities Lipase is normal My independent interpretation the patient's CT of the abdomen does show diffuse distended small bowel loops with air-fluid levels consistent with an obstruction. There does appear to be a portion of the bladder diverticulum in the left inguinal region. Final reading shows mid small bowel obstruction with transition. He has bilateral inguinal hernias. I I spoke with Dr. Diego about this patient. He is going to come in and see him because the concern is that this patient does have a SPINNING MACHINE TENDER shunt. If it is concerning he may need surgery he may be best served up at where the patient has been seen before and follows for his SPINNING MACHINE TENDER shunt. I rechecked the patient. He is not having inguinal tenderness although I can feel some fullness on his left. It does not hurt. Its feels like I can easily reduce the small amount of swelling but it comes back. But his abdomen is definitely more distended now than when I first saw him. But he came in very quickly after the onset of his symptoms. He is just about to get his NG tube so we will see how this helps him. Final disposition will be made after seen by surgery here. Dr. Diego came down to see the patient and talk with his sister. He spent quite a bit of time reviewing the history exam and work-up. His concern is that of this patient needs surgery he really needs access to both urology and neurosurgery. We have neither of those at this facility at this time. Although we do have urology at times they are not here this weekend. For this reason it is most appropriate that he goes to facility with a few more options. They prefer [facility] as they see both gastroenterology and urology there. His shunt was actually originally placed to [facility] and revised there when he was 19 years old. I did call [facility] transfer line and give them all the information. They contacted their surgeon on-call Dr. Fischer who has excepted the patient and will get the patient transferred up there as soon as possible. Lab Data Attestation: I reviewed the patient's lab results. Labs: Laboratory Results - last 24 hr 04/01/23 04/01/23 04/01/23 23:58 23:58 23:58 WBC 20.9 H RBC 5.83 Hgb 17.2 H Hct 50.7 MCV 87.0 MCH 29.5 MCHC 33.9 RDW Std Deviation 40.1 RDW Coeff of Frieda 12.7 Plt Count 495 H MPV 10.6 Immature Gran % (Auto) 0.400 Neut % (Auto) 87.0 H Lymph % (Auto) 5.1 L [place] % (Auto) 7.2 Eos % (Auto) 0.0 Baso % (Auto) 0.3 Absolute Neuts (auto) 18.2 H Absolute Lymphs (auto) 1.07 Nucleated RBC % 0 Sodium 124 L Potassium 3.7 Chloride 88 L Carbon Dioxide 23.0 Anion Gap 13 BUN 20 H Creatinine 1.30 Estim Creat Clear Calc 51.67 Est GFR (MDRD) Af Amer 74 Est GFR (MDRD) Non-Af 61 BUN/Creatinine Ratio 15.4 Glucose 159 H Lactic Acid 1.6 Calcium 10.7 H Magnesium 2.5 Total Bilirubin 0.90 AST 17 ALT 22 Alkaline Phosphatase 93 Total Protein 9.6 H Albumin 4.6 Globulin 5.0 H Albumin/Globulin Ratio 0.9 Lipase 31 Urine Color Urine Clarity Urine pH Ur Specific [place] Urine Protein Urine Glucose (UA) Urine Ketones Urine Occult Blood Urine Nitrite Urine Bilirubin Urine Urobilinogen Ur Leukocyte Esterase Urine RBC Urine WBC Ur Squamous Epith Cells Triple Phos Crystals Urine Bacteria Urine Mucus 04/02/23 00:30 WBC RBC Hgb Hct MCV MCH MCHC RDW Std Deviation RDW Coeff of Frieda Plt Count MPV Immature Gran % (Auto) Neut % (Auto) Lymph % (Auto) [place] % (Auto) Eos % (Auto) Baso % (Auto) Absolute Neuts (auto) Absolute Lymphs (auto) Nucleated RBC % Sodium Potassium Chloride Carbon Dioxide Anion Gap BUN Creatinine Estim Creat Clear Calc Est GFR (MDRD) Af Amer Est GFR (MDRD) Non-Af BUN/Creatinine Ratio Glucose Lactic Acid Calcium Magnesium Total Bilirubin AST ALT Alkaline Phosphatase Total Protein Albumin Globulin Albumin/Globulin Ratio Lipase Urine Color Yellow Urine Clarity Turbid Urine pH 8.0 Ur Specific [place] 1.015 Urine Protein 100 H Urine Glucose (UA) Normal Urine Ketones 15 H Urine Occult Blood 150 H Urine Nitrite Negative Urine Bilirubin Negative Urine Urobilinogen Normal Ur Leukocyte Esterase 500 H Urine RBC 10-25 SEEN Urine WBC 50-100 SEEN Ur Squamous Epith Cells 0-5 SEEN Triple Phos Crystals RARE Urine Bacteria 4+ Urine Mucus 0 SEEN Radiography Diagnostic Testing: Clinical Impression(s) from Imaging Studies KUB X-Ray 04/02/23 01:50 IMPRESSION: Enteric tube projects subdiaphragmatic within a distended stomach. Diffuse upper abdominal bowel distention. Electronically Signed: Beck Mcgovern MD at 2:09 EDT , Abdomen/Pelvis CT 04/02/23 23:48 IMPRESSION: Mid small bowel obstruction with transition to decompressed distal small bowel in the posterior central lower abdomen. No evidence of perforation. Nonobstructive left nephrolithiasis. Bowman catheter decompresses the bladder with coarse intraluminal stones. Coarse stones also suggested in a right bladder diverticulum. Bilateral inguinal hernias, containing a small amount of bladder in the left hernia. Electronically Signed: Beck Mcgovern MD at 1:16 EDT , ADDENDUM: 04/02/23 0128 IMPRESSION: Mid small bowel obstruction with transition to decompressed distal small bowel in the posterior central lower abdomen. No evidence of perforation. Nonobstructive left nephrolithiasis. Bowman catheter decompresses the bladder with coarse intraluminal stones. Coarse stones also suggested in a right bladder diverticulum. Bilateral inguinal hernias, containing a small amount of bladder in the left hernia. N.B. : Immanuel Jose MD, confirmed on 04/02/2023 01:21:55 (ET) that the healthcare facility has received the radiology report. Electronically Signed: Beck Mcgovern MD at 1:16 EDT , EKG Initial EKG: Comments: My independent interpretation the patient's EKG done for mildly tachycardic rate shows sinus rhythm with tachycardic rate at 103. Nonspecific changes but no acute ST elevation or depression. No ectopy. MD interval, QRS duration and QTc are normal. Management Discussion w/another healthcare provider: Mathematical Statistician Discharge Plan Triage Chief Complaint: Nausea/Vomiting Other Complaint: Abd Pain ED Provider: Immanuel Jose Dx/Rx/DC Orders Clinical Impression: SBO (small bowel obstruction), Leukocytosis, Urinary tract infection, Bladder stones, Chronic indwelling Bowman catheter Prescriptions: No Action Linzess 72 mcg capsule 290 mcg PO DAILY Label Comments: TAKE 1 CAP BY MOUTH ONCE DAILY ON EMPTY STOMACH SWALLOW WHOLE DO NOT CHEW/CRUSH baclofen 5 MG tablet 5 mg PO TID Rx Instructions: Hold for sedation/lethargy Primary Care Provider: Lyndon Sanders Referrals: Lyndon Sanders MD [Primary Care Provider] - Disposition Disposition: Acute Care Hospital Discharge Location: [facility]
[2023-04-02] VITALS (8 sets, daily range): BP systolic 116–131; BP diastolic 76–89; PULSE 83–98; RESP 14–18; TEMP 36.1–37.5; O2SAT 93–98; BMI 21.9
[2023-04-02] MEDS: 0.9% Normal Saline 1,000 ML 1000 ML IV
[2023-04-02 00:20] LABS: Absolute Lymphocyte Count 1.07 X10^3/uL (0.83-4.51); Absolute Neutrophil Count 18.2 X10^3/uL (2.0-7.7); Basophil# 0.06 X10^3/uL; Basophil% 0.3 % (0-1); Eosinophil# 0.01 X10^3/uL; Hematocrit 50.7 % (40-54); Hemoglobin 17.2 g/dL (13.0-16.5); Lymphocyte # 1.07 X10^3/ul (0.83-4.51); Lymphocyte % 5.1 % (19-41); Mean Corp Hgb Conc 33.9 g/dL (32-36); Mean Corpuscular Hgb 29.5 pg (27.0-32.0); Mean Platelet Vol. 10.6 fl (6.2-12.0); Monocyte% 7.2 % (0-10); NRBC Flagged by Analyzer 0 % (0-5); Platelet Count 495 K/mm3 (150-450); RBC Distribution Width CV 12.7 % (11.6-14.6); RBC Distribution Width SD 40.1 fl (35.1-43.9); Red Blood Count 5.83 M/mm3 (4.6-6.2); White Blood Count 20.9 K/mm3 (4.4-11.0)
[2023-04-02 00:33] LABS: ALB/GLOB Ratio 0.9 RATIO (0.9-2.4); AST(SGOT) 17 U/L (15-37); Alanine Aminotransfer ALT/SGPT 22 U/L (16-61); Albumin, Serum 4.6 g/dL (3.2-5.0); Alkaline Phosphatase 93 U/L (45-117); Anion Gap 13 (5-15); BUN 20 mg/dL (7-18); BUN/Creat Ratio 15.4 RATIO (10-20); Calcium,Total 10.7 mg/dL (8.5-10.1); Chloride 88 mmol/L (98-107); EST Glomerular Filtration Rate 61 mL/min (>60); Est Glom Filt Rate - Afr Amer 74 mL/min (>60); Estimated Creatinine Clearance 51.67 ml/min; Glucose 159 mg/dL (74-106); Lipase 31 U/L (13-75); Magnesium 2.5 mg/dL (1.6-2.6); Potassium 3.7 mmol/L (3.5-5.1); Protein, Total 9.6 g/dL (6.4-8.2); Sodium Level 124 mmol/L (136-145)
[2023-04-02 00:38] LABS: Mucous, Urine 0 SEEN /hpf (<or=2+)
[2023-04-02 00:38] LABS: Lactic Acid 1.6 mmol/L (0.4-1.9)
[2023-04-02] MEDS: Ceftriaxone 1 GM/50 ML BAG IV (00:58)
[2023-04-02 01:21] LABS: Color, Urine Yellow (Yellow); Glucose, Dipstick Normal (Normal); Ketone-Dipstick 15 mg/dl (Negative); Leukocyte Esterase-Dipstick 500 /ul (Negative); Nitrite-Dipstick Negative (Negative); Occult Blood-Urine 150 /ul (Negative); Protein-Dipstick 100 mg/dl (Negative); Specific Gravity, Urine 1.015 (1.002-1.030); Urine Bilirubin Dipstick Negative (Negative); Urine Clarity Turbid (Clear); Urine Urobilinogen Normal (Normal)
[2023-04-02 01:35] LABS: Bacteria 4+ /hpf (None Seen); Red Blood Cells-Urine 10-25 SEEN /hpf (0-5); Squamous Epithelial Cells - UA 0-5 SEEN /hpf (0-5); Triple Phosphate Crystals Ur RARE /hpf (<or=1+); White Blood Cells 50-100 SEEN /hpf (0-5)
[2023-04-02] MEDS: Oxymetazoline 0.05% 1 SPRAY SPRAY.BTL 2 SPRAY NASAL (01:40)
--- NOTE | 2023-04-02 01:50 | RAD_ITS ---
INDICATION: NG Tube placement -- KUB with both diaphragms for NG/OG Verification EXAMINATION/TECHNIQUE: X-RAY - XR Abdomen 1 View COMPARISON: CT April 02, 2023 FINDINGS: BOWEL GAS PATTERN: Enteric tube projects subdiaphragmatic within the distended stomach. Partially seen right ventriculoperitoneal shunt. Diffuse distention of bowel filling the upper abdomen.. FREE AIR: Not well assessed on a supine view. ORGANOMEGALY: Not seen. CALCIFICATIONS: Left renal 3 mm calcification noted. LOWER CHEST: No airspace consolidation effusion or pneumothorax. No florid edema.. BONES AND SOFT TISSUES: No acute pathology. RAD/Abdomen Single View (Portable) IMPRESSION: Enteric tube projects subdiaphragmatic within a distended stomach. Diffuse upper abdominal bowel distention. Electronically Signed: Beck Mcgovern MD at 2:09 EDT ,
--- NOTE | 2023-04-02 03:03 | EX.PCM.CON.S ---
Assessment & Plan Assessment/Plan (1) SBO (small bowel obstruction): PLAN: Patient is a 57-year-old male, with a moderately complex past medical history, who presents for evaluation of acute onset abdominal discomfort and nausea. Clinical evaluation is consistent with recurrence of small bowel obstruction. Today, patient's abdominal exam is nonacute and my independent review of his CT imaging confirms that his small bowel obstruction has recurred in the same location designated with previous imaging studies. I remain suspicious that patient's leukocytosis is most attributable to his ongoing urinary tract infections. Mr. Fuentes is known to me from a prior admission August 2022 with a similar presentation and ultimately experienced spontaneous return of bowel function, however, he underwent 3 subsequent admissions at this facility for similar presentations in the interval since we last had contact. With each of these admissions it has always been the agreement that if surgery were required, Mr. Fuentes would require tertiary referral?owing to the existence of his PAINT BRUSH MAKER shunt and the possible need for revision. As stated above, patient's sister (and primary caregiver) is a good historian and provides this interval update. She states that in addition to the above admissions at this facility she and her brother were at [facility] in November and December for concerns around a sigmoid volvulus event. She also reports that they have seen urology relatively recently at the [facility] for Mr. Fuentes's recurrent urinary tract infections. Approaching half a dozen admissions in as many months, I raised this issue to patient and his sister and they confirm that they have made this observation of increasing frequency of visits as well. I offered to them that we could seek inpatient admission as we have done historically, with our usual understanding that if surgery required transfer request would be made or we could consider transfer at this juncture. Is patient's/patient's sister's request that we seek transfer now with the hopes of intervention. This request was passed along to emergency medicine who agreed to pursue transfer. HPI Consult Data Date of Consult: 04/02/23 HPI Narrative Reason for Consultation: Small bowel obstruction HPI Narrative: IMMANUEL FUENTES, is a 57 M, with past medical history of normal pressure hydrocephalus and indwelling ventriculoperitoneal shunt, who presents to [facility] due to complaints of acute onset abdominal pain and nausea. He has a history of recurrent small bowel obstructions and when he complained of these things to his sister (primary caregiver) she immediately brought in for evaluation. She states that the symptoms were first reported to her approximately 8 PM. ER evaluation is notable for CBC with significant leukocytosis at 20.[address] imaging of the abdomen pelvis which shows small bowel obstruction with small bowel loops dilated to 4.7 cm with a transition point in the mid abdomen. Nasogastric tube was placed by emergency medicine and there is been output of a moderate volume of yellow bilious fluid. Patient's sister provides much of the additional history and she states that she brought her brother in just 2 days ago for possible urinary tract infection. At that time his catheter was exchanged and a urine culture was obtained. She states that she has been informed that culture has just started to show some growth. She also reports that she has noticed a decrease in her brother's urine output over the last couple of days and anecdotally has found this to correlate with his bowel complaints. Patient apparently had relatively normal bowel movements with his usual regimen (2 suppositories and a tapwater enema daily) each day this week including today. When asked about any use of high-fiber foods, patient's sister states that she is aware that this is a risk factor and she generally tries to avoid these things, but does admit to feeding her brother some potatoes with her skin still on and some salads. [facility] Medical History Bladder diverticulum Bladder stones Catheter-associated urinary tract infection Chronic indwelling Bowman catheter Gastroparesis History of urinary retention Hydrocephalus Hypertension Hyponatremia Ileus Inguinal hernia Normal pressure hydrocephalus Seizures Home Medications linaclotide 72 mcg capsule (Linzess) 290 mcg PO DAILY constipation 07/31/21 [History Last Taken 02/20/23] baclofen 5 mg tablet 5 mg PO TID spasms 07/21/22 [History Last Taken 02/20/23] Allergy/AdvReac Type Severity Reaction Status Date / Time Iodinated Contrast Media Allergy Anaphylaxis Verified 04/01/23 23:35 [Iodinated Contrast Media - IV Dye] nitrofurantoin AdvReac Upset Verified 04/01/23 23:35 Stomach Family History Father Heart disease Kidney stones Prostate disease Brother Kidney stones Other Cancer Peptic ulcer disease Surgical History S/P release of urethral stricture S/P PAINT BRUSH MAKER shunt PAINT BRUSH MAKER (ventriculoperitoneal) shunt status Social History household members: family Smoking Status: Never smoker alcohol intake: never substance use type: does not use Physical Exam Const alert, oriented x3 and no apparent distress Constitutional Narrative: Appears very fatigued Resp normal respiratory effort GI GI Narrative: Mild to moderately distended, soft, nontender to palpation x4 quadrants Narrative: No tenderness over bilateral groins. Urine is dark and concentrated in appearance Bladder / Kidney Exam: catheter in place Lab / Micro Data Result Diagrams: 04/01/23 23:58 04/01/23 23:58 Labs: Laboratory Results - last 24 hr 04/01/23 23:58: WBC 20.9 H, RBC 5.83, Hgb 17.2 H, Hct 50.7, MCV 87.0, MCH 29.5, MCHC 33.9, RDW Std Deviation 40.1, RDW Coeff of Frieda 12.7, Plt Count 495 H, MPV 10.6, Immature Gran % (Auto) 0.400, Neut % (Auto) 87.0 H, Lymph % (Auto) 5.1 L, [place] % (Auto) 7.2, Eos % (Auto) 0.0, Baso % (Auto) 0.3, Absolute Neuts (auto) 18.2 H, Absolute Lymphs (auto) 1.07, Nucleated RBC % 0 04/01/23 23:58: Sodium 124 L, Potassium 3.7, Chloride 88 L, Carbon Dioxide 23.0, Anion Gap 13, BUN 20 H, Creatinine 1.30, Estim Creat Clear Calc 51.67, Est GFR (MDRD) Af Amer 74, Est GFR (MDRD) Non-Af 61, BUN/Creatinine Ratio 15.4, Glucose 159 H, Calcium 10.7 H, Magnesium 2.5, Total Bilirubin 0.90, AST 17, ALT 22, Alkaline Phosphatase 93, Total Protein 9.6 H, Albumin 4.6, Globulin 5.0 H, Albumin/Globulin Ratio 0.9, Lipase 31 04/01/23 23:58: Lactic Acid 1.6 04/02/23 00:30: Urine Color Yellow, Urine Clarity Turbid, Urine pH 8.0, Ur Specific [place] 1.015, Urine Protein 100 H, Urine Glucose (UA) Normal, Urine Ketones 15 H, Urine Occult Blood 150 H, Urine Nitrite Negative, Urine Bilirubin Negative, Urine Urobilinogen Normal, Ur Leukocyte Esterase 500 H, Urine RBC 10-25 SEEN, Urine WBC 50-100 SEEN, Ur Squamous Epith Cells 0-5 SEEN, Triple Phos Crystals RARE, Urine Bacteria 4+, Urine Mucus 0 SEEN Radiology Impression KUB X-Ray 04/02/23 01:50 IMPRESSION: Enteric tube projects subdiaphragmatic within a distended stomach. Diffuse upper abdominal bowel distention. Electronically Signed: Beck Mcgovern MD at 2:09 EDT Reading Location ID and State: [facility] / [place] Tel , Service support , Abdomen/Pelvis CT 04/02/23 23:48 IMPRESSION: Mid small bowel obstruction with transition to decompressed distal small bowel in the posterior central lower abdomen. No evidence of perforation. Nonobstructive left nephrolithiasis. Bowman catheter decompresses the bladder with coarse intraluminal stones. Coarse stones also suggested in a right bladder diverticulum. Bilateral inguinal hernias, containing a small amount of bladder in the left hernia. Electronically Signed: Beck Mcgovern MD at 1:16 EDT , ADDENDUM: 04/02/23 0128 IMPRESSION: Mid small bowel obstruction with transition to decompressed distal small bowel in the posterior central lower abdomen. No evidence of perforation. Nonobstructive left nephrolithiasis. Bowman catheter decompresses the bladder with coarse intraluminal stones. Coarse stones also suggested in a right bladder diverticulum. Bilateral inguinal hernias, containing a small amount of bladder in the left hernia. N.B. : Immanuel Jose MD, confirmed on 04/02/2023 01:21:55 (ET) that the healthcare facility has received the radiology report. Electronically Signed: Beck Mcgovern MD at 1:16 EDT , Charges/Coding Visit Charges Office Visits / Consults: [id number] ED Visit; High/Urgent Severity
--- NOTE | 2023-04-02 08:53 | NURSING ---
talked to [facility] and they are still waiting on a bed
[2023-04-02] MEDS: 0.9% Normal Saline 1,000 ML 150 ML IV ×3 (10:34→21:33)
[2023-04-02] MEDS: Ondansetron 4 MG/2 ML Vial IV ×2 (10:37)
[2023-04-02] MEDS: Morphine 4 MG/ML Syringe IV (10:38)
--- NOTE | 2023-04-02 11:14 | HP.PCM.HOS_ITS ---
HPI - General General Date of Admission: 04/02/23 Date of Service: 04/02/23 Chief Complaint: abdominal pain. HPI Narrative JIAN ALTAMIRANO, is a 57 M who presents with N/V and abdominal pain. Presented to ED on the and found to have a SBO. NGT was placed. Seen by Dr. Diego and given pt's complexity, recommended transfer to a tertiary facility. [facility] was contacted by the ED and patient was accepted, but unable to transfer the patient immediately since there are no current beds available. The Hospitalist service was contacted to admit the patient since the patient may not be able to be transferred for 1-2 days. Pt was seen on the and diagnosed with a UTI. His catheter was changed at that time and discharge with cefdinir. Pt received CTX during this visit. The UCx from the showed Monganella morganii and Citrobacter freundii (resistant to CTX). [facility] Medical History Bladder diverticulum Bladder stones Catheter-associated urinary tract infection Chronic indwelling Bowman catheter Gastroparesis History of urinary retention Hydrocephalus Hypertension Hyponatremia Ileus Inguinal hernia Normal pressure hydrocephalus Seizures Home Medications linaclotide 72 mcg capsule (Linzess) 290 mcg PO DAILY constipation 07/31/21 [History Last Taken 02/20/23] baclofen 5 mg tablet 5 mg PO TID spasms 07/21/22 [History Last Taken 02/20/23] Allergy/AdvReac Type Severity Reaction Status Date / Time Iodinated Contrast Media Allergy Anaphylaxis Verified 04/01/23 23:35 [Iodinated Contrast Media - IV Dye] nitrofurantoin AdvReac Upset Verified 04/01/23 23:35 Stomach Family History Father Heart disease Kidney stones Prostate disease Brother Kidney stones Other Cancer Peptic ulcer disease Surgical History S/P release of urethral stricture S/P HOME HELP AIDE shunt HOME HELP AIDE (ventriculoperitoneal) shunt status Social History household members: family Smoking Status: Never smoker alcohol intake: never substance use type: does not use ROS ROS Narrative + Rhinitis. Walks with assistance at baseline. All review of systems were negative except as mentioned above in the history of present illness and the other review of systems. Vital Signs Vital Signs Vital Signs: 04/01/23 23:35 04/02/23 00:52 04/02/23 03:00 Temperature 36.7 C Temperature Source Temporal Pulse Rate 103 H 91 94 Respiratory Rate 18 18 18 Blood Pressure 128/88 H 123/89 H 116/78 Blood Pressure Mean 101 100 90 Pulse Ox 97 95 94 Oxygen Delivery Method Room Air Room Air Room Air 04/02/23 05:00 04/02/23 08:00 04/02/23 10:00 Temperature Temperature Source Pulse Rate 98 Respiratory Rate 16 14 14 Blood Pressure 120/83 H 131/76 H 121/85 H Blood Pressure Mean 95 94 97 Pulse Ox 93 95 96 Oxygen Delivery Method Room Air Room Air Room Air 04/02/23 10:51 Temperature 36.1 C L Temperature Source Temporal Pulse Rate 97 Respiratory Rate 16 Blood Pressure 126/85 H Blood Pressure Mean 98 Pulse Ox 95 Oxygen Delivery Method Room Air Weight Weight: 58.2 kg Body Mass Index (BMI) 22.7 Physical Exam Const alert and no apparent distress Constitutional Narrative: towel over face. HEENT normocephalic HEENT Narrative: NGT in place. Resp normal respiratory effort and no retractions Cardio regular rate, regular rhythm, S1 normal heart sound and S2 normal heart sound GI GI Narrative: distended. hypoacitve BS. Extremity Extremity Narrative: atrophic LE. Neuro moves all extremities Results Lab / Micro Data Attestation: I reviewed the patient's lab results. Result Diagrams: 04/01/23 23:58 04/01/23 23:58 Labs: Laboratory Results - last 24 hr 04/01/23 23:58: WBC 20.9 H, RBC 5.83, Hgb 17.2 H, Hct 50.7, MCV 87.0, MCH 29.5, MCHC 33.9, RDW Std Deviation 40.1, RDW Coeff of Frieda 12.7, Plt Count 495 H, MPV 10.6, Immature Gran % (Auto) 0.400, Neut % (Auto) 87.0 H, Lymph % (Auto) 5.1 L, Preston % (Auto) 7.2, Eos % (Auto) 0.0, Baso % (Auto) 0.3, Absolute Neuts (auto) 18.2 H, Absolute Lymphs (auto) 1.07, Nucleated RBC % 0 04/01/23 23:58: Sodium 124 L, Potassium 3.7, Chloride 88 L, Carbon Dioxide 23.0, Anion Gap 13, BUN 20 H, Creatinine 1.30, Estim Creat Clear Calc 51.67, Est GFR (MDRD) Af Amer 74, Est GFR (MDRD) Non-Af 61, BUN/Creatinine Ratio 15.4, Glucose 159 H, Calcium 10.7 H, Magnesium 2.5, Total Bilirubin 0.90, AST 17, ALT 22, Alkaline Phosphatase 93, Total Protein 9.6 H, Albumin 4.6, Globulin 5.0 H, Albumin/Globulin Ratio 0.9, Lipase 31 04/01/23 23:58: Lactic Acid 1.6 04/02/23 00:30: Urine Color Yellow, Urine Clarity Turbid, Urine pH 8.0, Ur Specific Hessmer 1.015, Urine Protein 100 H, Urine Glucose (UA) Normal, Urine Ketones 15 H, Urine Occult Blood 150 H, Urine Nitrite Negative, Urine Bilirubin Negative, Urine Urobilinogen Normal, Ur Leukocyte Esterase 500 H, Urine RBC 10- 25 SEEN, Urine WBC 50-100 SEEN, Ur Squamous Epith Cells 0-5 SEEN, Triple Phos Crystals RARE, Urine Bacteria 4+, Urine Mucus 0 SEEN EKG Initial EKG: Attestation: I personally reviewed and interpreted this EKG as follows: Prior EKG tracings: available for review EKG Rhythm Intrepretation: Sinus Tachycardia Radiology Impression KUB X-Ray 04/02/23 01:50 IMPRESSION: Enteric tube projects subdiaphragmatic within a distended stomach. Diffuse upper abdominal bowel distention. Electronically Signed: Beck Mcgovern MD at 2:09 EDT , Abdomen/Pelvis CT 04/02/23 23:48 IMPRESSION: Mid small bowel obstruction with transition to decompressed distal small bowel in the posterior central lower abdomen. No evidence of perforation. Nonobstructive left nephrolithiasis. Bowman catheter decompresses the bladder with coarse intraluminal stones. Coarse stones also suggested in a right bladder diverticulum. Bilateral inguinal hernias, containing a small amount of bladder in the left hernia. Electronically Signed: Beck Mcgovern MD at 1:16 EDT , ADDENDUM: 04/02/23 0128 IMPRESSION: Mid small bowel obstruction with transition to decompressed distal small bowel in the posterior central lower abdomen. No evidence of perforation. Nonobstructive left nephrolithiasis. Bowman catheter decompresses the bladder with coarse intraluminal stones. Coarse stones also suggested in a right bladder diverticulum. Bilateral inguinal hernias, containing a small amount of bladder in the left hernia. N.B. : Jian Jose MD, confirmed on 04/02/2023 01:21:55 (ET) that the healthcare facility has received the radiology report. Electronically Signed: Beck Mcgovern MD at 1:16 EDT , Assessment & Plan Assessment/Plan (1) SBO (small bowel obstruction): PLAN: Awaiting on TF to [facility] in case surgery would be needed. continue NGT to LIS PRN antiemetics pain control (2) Urinary tract infection: PLAN: Mongella morganii and Citrobacter freundii CAUTI. Catheter changed on 03/30 Was discharge with cefdinir and received CTX in ED. The citrobacter was resistant to CTX Change Abx to levofloxacin (3) TRESA (acute kidney injury): PLAN: 2/2 decreased intake + vomiting. continue IVF PLAN: Plan Chronic conditions: * hydrocephalus s/p HOME HELP AIDE shunt. Initial placement when he was 5 * gastroparesis * constipation: hold linzess for now * Chronic indwelling catheter, continue * chronic debility: walks with assistance VTE prophylaxis: SQ LMWH. Code Status: pt unsure. Full code. Informed pt he can change this at any time. Charges/Coding Visit Charges Inpatient E&M: 03752 Init Hosp L3
[2023-04-02] MEDS: levoFLOXacin IV 500 MG/100 ML BAG 100 MG IV (13:36)
--- NOTE | 2023-04-02 23:48 | CT_ITS ---
ACR Level 3 findings have been noted. An addendum which confirms receipt of the report will follow. /INDICATION: Pain EXAMINATION: CT ABDOMEN AND PELVIS WITHOUT CONTRAST - CT Abdomen And Pelvis W/O Contrast Injection TECHNIQUE: Helically acquired images were obtained of the abdomen and pelvis without oral or IV contrast. A radiation dose optimization technique was used for this scan. IV Contrast dosage and agent: None. Oral contrast: None. COMPARISON: February 20, 2023. FINDINGS: TUBES: Right anterior chest and abdominal ventriculoperitoneal shunt partially seen LOWER CHEST: Lung bases are clear. No cardiomegaly or pericardial effusion. Fluid-filled distended distal esophagus LIVER: Homogeneous. No focal mass. GALLBLADDER AND BILIARY TREE: No calcified gallstones. No gallbladder distension or wall edema. No intra- or extrahepatic biliary ductal dilation. PANCREAS: No focal cystic or solid mass. SPLEEN: Normal size without focal cystic or solid mass. ADRENAL GLANDS: No nodules. KIDNEYS AND URETERS: Left renal 4 mm and smaller nonobstructive stones. Exophytic left renal cyst, no imaging follow-up required. No hydronephrosis or surrounding inflammation. No acute ureteral finding. . PERITONEUM: No ascites or free air. No other fluid collection. BOWEL: Bladder is distended with fluid. Diffuse small bowel fluid distention up to 4.7 cm with transition to decompressed bowel in the posterior inferior abdomen, axial image 108 and coronal image 46. Appendix is not seen. No right lower quadrant inflammation to suggest appendicitis. Scattered fluid within the proximal colon and rectum without focal colonic wall thickening. LYMPH NODES: No enlarged mesenteric or retroperitoneal lymph nodes. VESSELS: Aorta is non-dilated. URINARY BLADDER: Bowman catheter decompresses bladder. Bulky calcifications within the bladder and likely within right posterior bladder diverticulum. Bilateral inguinal hernias containing fat on the right and fat and small portion of bladder on the left.. REPRODUCTIVE ORGANS: No pelvic masses. BONES: No lytic or blastic abnormality. CT/Abdomen/Pelvis without Cont IMPRESSION: Mid small bowel obstruction with transition to decompressed distal small bowel in the posterior central lower abdomen. No evidence of perforation. Nonobstructive left nephrolithiasis. Bowman catheter decompresses the bladder with coarse intraluminal stones. Coarse stones also suggested in a right bladder diverticulum. Bilateral inguinal hernias, containing a small amount of bladder in the left hernia. Electronically Signed: Beck Mcgovern MD at 1:16 EDT ,
--- NOTE | 2023-04-03 00:22 | NURSING ---
0015 Pt left with transport to [facility]. IV saline locked. NG clamped. Pt wheelchair and belongings sent with transport.
--- NOTE | 2023-04-03 06:56 | DS.PCM_ITS ---
Providers Date of Admission: 04/02/23 Primary Care Physician: Dr. Lyndon Sanders MD Reason For Visit: SBO, UTI Diagnosis Discharge Diagnosis (1) SBO (small bowel obstruction): Status: Acute Code(s): K56.609 - Unspecified intestinal obstruction, unspecified as to partial versus complete obstruction Plan: Awaiting on TF to [facility] in case surgery would be needed. continue NGT to LIS PRN antiemetics pain control (2) Urinary tract infection: Status: Acute Code(s): N39.0 - Urinary tract infection, site not specified Plan: Mongella morganii and Citrobacter freundii CAUTI. Catheter changed on 03/30 Was discharge with cefdinir and received CTX in ED. The citrobacter was resistant to CTX Change Abx to levofloxacin (3) TRESA (acute kidney injury): Status: Acute Code(s): N17.9 - Acute kidney failure, unspecified Plan: 2/2 decreased intake + vomiting. continue IVF Plan Chronic conditions: * hydrocephalus s/p LIBRARY HELPER shunt. Initial placement when he was 5 * gastroparesis * constipation: hold linzess for now * Chronic indwelling catheter, continue * chronic debility: walks with assistance VTE prophylaxis: SQ LMWH. Code Status: pt unsure. Full code. Informed pt he can change this at any time. Medications at Discharge Home Medications linaclotide 72 mcg capsule (Linzess) 290 mcg PO DAILY constipation 07/31/21 baclofen 5 mg tablet 5 mg PO TID spasms 07/21/22 Hospital Course Operations None Procedures None Summary of Care Provided Hospital Course: Patient was admitted with small bowel obstruction. Given patient prior surgical history, general surgery, saw the patient in the emergency room, recommend transfer to tertiary facility. Patient was accepted to [facility] but they informed emergency room that they would not have any beds available for a day or 2.'s patient did have NG tube placed. Patient also had a urinary tract infection was started on antibiotics. Patient was able to get a bed and was discharged at 0045 on 04/03. Weight / BMI Weight Weight: 56.2 kg Body Mass Index (BMI) 21.9 ABG / Lab / Microbiology Data Result Diagrams: 04/01/23 23:58 04/01/23 23:58 Meaningful Use Info Meaningful Use Diagnoses (Choose all that apply): None applicable Discharge Plan Admission Admit Date/Time: 04/02/23 11:05 Primary Reason for Your Visit: small bowel obstruction. Attending Provider: Richard Palacio Primary Care Provider: Lyndon Sanders Discharge Orders/Prescriptions Prescriptions: No Action Linzess 72 mcg capsule 290 mcg PO DAILY Label Comments: TAKE 1 CAP BY MOUTH ONCE DAILY ON EMPTY STOMACH SWALLOW WHOLE DO NOT CHEW/CRUSH baclofen 5 MG tablet 5 mg PO TID Rx Instructions: Hold for sedation/lethargy Referrals / Follow Up: Lyndon Sanders MD [Primary Care Provider] - Disposition Disposition (needs filled in before D/C Order can be placed): DC/Tx to Another Type of [facility]CF
== END 2023-04-03 00:10 | disposition short-term general hospital (02) | DRG 389 ==
LOC: ED 04-02 10:07 → MS3 04-02 10:59
PROVIDERS: Emergency Provider Emergency Medicine; PCP Family Medicine
DX: K56.609 Unspecified intestinal obstruction, unspecified as to partial versus complete obstruction (principal); T83.511A Infection and inflammatory reaction due to indwelling urethral catheter, initial encounter; G91.2 (Idiopathic) normal pressure hydrocephalus; N17.9 Acute kidney failure, unspecified; N39.0 Urinary tract infection, site not specified; K31.84 Gastroparesis; I10 Essential (primary) hypertension; K59.00 Constipation, unspecified; X58.XXXA Exposure to other specified factors, initial encounter; B96.4 Proteus (mirabilis) (morganii) as the cause of diseases classified elsewhere; B96.89 Other specified bacterial agents as the cause of diseases classified elsewhere; R53.81 Other malaise; Z98.2 Presence of cerebrospinal fluid drainage device; Z79.899 Other long term (current) drug therapy; Z87.440 Personal history of urinary (tract) infections
CPT/HCPCS: 51702; 74018; 74176; 80048; 80053; 81001; 83605; 83690; 83735; 85025; 87077; 87086; 87088; 87186; 93005; 97162; 97166; 99284; 99285; J7030; A4216; J2405

== ENCOUNTER 2023-05-09 03:09 | Inpatient (IN) | payer MEDICARE, MEDICAID, SELFPAY ==
[2023-05-09] VITALS (8 sets, daily range): BP systolic 115–149; BP diastolic 71–91; PULSE 71–100; RESP 16–20; TEMP 36.3–37.3; O2SAT 91–97; BMI 21.9
--- NOTE | 2023-05-09 03:35 | CT_ITS ---
ACR Level 3 findings have been noted. An addendum which confirms receipt of the report will follow. INDICATION: abd pain / ? SBO -- oral EXAMINATION: CT ABDOMEN AND PELVIS WITHOUT CONTRAST - CT Abdomen And Pelvis W/O Contrast Injection TECHNIQUE: Helically acquired images were obtained of the abdomen and pelvis without oral or IV contrast. A radiation dose optimization technique was used for this scan. IV Contrast dosage and agent: None. Oral contrast: None. COMPARISON: April 02, 2023. FINDINGS: LOWER CHEST: Lung bases are clear. No cardiomegaly or pericardial effusion. LIVER: Homogeneous. No focal mass. GALLBLADDER AND BILIARY TREE: No calcified gallstones. No gallbladder distension or wall edema. No intra- or extrahepatic biliary ductal dilation. PANCREAS: No focal cystic or solid mass. SPLEEN: Normal size without focal cystic or solid mass. ADRENAL GLANDS: No nodules. KIDNEYS AND URETERS: Left renal exophytic cyst. Mild bilateral renal pelviectasis including the left extrarenal pelvis. Nonobstructive left renal 5 mm stone. Cystic versus PERITONEUM: No ascites or free air. No other fluid collection. BOWEL: Persistent gastric distention. Increased diffuse distention of small bowel up to 5 cm with transition to decompressed bowel in the central pelvis, axial image 127. Scattered fluid remains throughout the colon with rectal stool. LYMPH NODES: No enlarged mesenteric or retroperitoneal lymph nodes. VESSELS: Aorta is non-dilated. URINARY BLADDER: Diffuse bladder wall thickening,including portion herniated into left inguinal canal. Large dependent stones in the main bladder, bladder in the left inguinal canal, and right posterior bladder diverticulum. REPRODUCTIVE ORGANS: No pelvic masses. ABDOMINAL WALL: No discrete abdominal or pelvic wall hernia. BONES: No lytic or blastic abnormality. 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 Ventricular peritoneal shunt partially seen, pelvis coiled in the anterior pelvis. CT/Abdomen/Pel W ORAL Cont Only IMPRESSION: 1. Progressive or recurrent distention of small bowel with transition to decompressed bowel in the central pelvis concerning for small bowel obstruction. 2. Bilateral inguinal hernias, containing bladder on the left, with dependent stones within the pelvic bladder and herniated bladder segment. Diffuse chronic bladder wall thickening likely secondary to chronic outlet dysfunction in setting of large prostate. Correlate with urine to exclude cystitis. 3. Mild bilateral renal pelviectasis. Electronically Signed: Beck Mcgovern MD at 7:01 EDT ,
--- NOTE | 2023-05-09 03:47 | EX.ED.DYSGE1 ---
HPI History of Present Illness Chief Complaint: GI Bleed Informant: patient, legal guardian and family Narrative Narrative: Patient is a 57-year-old male with complex medical history of recurrent small bowel obstructions recurrent urinary tract infections chronic indwelling Bowman catheter and hydrocephalus requiring ADMINISTRATIVE SECRETARY shunt as well as gastroparesis. His sister is his primary product technician. She states that today he was having difficulty with bowel movements and she was concerned that he could be developing an obstruction once again and she gave him enemas and eventually was able to have a large bowel movement. She states that she thought he was doing better but that this evening/morning he developed abdominal pain and had 2 or 3 bouts of vomiting and there was red discoloration to it. She states that she is unsure if it was blood or not as it did not have the normal blood smell. She also states that he did have pizza this evening and there is chance that the discoloration could have been from the marinara sauce. However she feels like his stomach is nondistended and she is concerned that with the vomiting and the constipation he had earlier today that he is developing a repeat obstruction or potential ileus and therefore he was brought in for evaluation [facility] Medical History Bladder diverticulum Bladder stones Catheter-associated urinary tract infection Chronic indwelling Bowman catheter Gastroparesis History of urinary retention Hydrocephalus Hypertension Hyponatremia Ileus Inguinal hernia Normal pressure hydrocephalus Seizures Home Medications linaclotide 72 mcg capsule (Linzess) 290 mcg PO DAILY constipation 07/31/21 [History Last Taken 02/20/23] baclofen 5 mg tablet 5 mg PO TID spasms 07/21/22 [History Last Taken 02/20/23] Allergy/AdvReac Type Severity Reaction Status Date / Time Iodinated Contrast Media Allergy Anaphylaxis Verified 05/09/23 03:11 [Iodinated Contrast Media - IV Dye] nitrofurantoin AdvReac Upset Verified 05/09/23 03:11 Stomach Family History Father Heart disease Kidney stones Prostate disease Brother Kidney stones Other Cancer Peptic ulcer disease Surgical History S/P release of urethral stricture S/P ADMINISTRATIVE SECRETARY shunt ADMINISTRATIVE SECRETARY (ventriculoperitoneal) shunt status Social History household members: family Smoking Status: Never smoker alcohol intake: never substance use type: does not use ROS ROS ED Constitutional Constitutional ED: Denies chills or fever(s) Cardiovascular Cardiovascular: Denies chest pain Respiratory/Chest Respiratory/Chest: Denies cough or dyspnea Gastrointestinal Gastrointestinal: Reports abdominal pain, nausea and vomiting; Denies diarrhea Musculoskeletal Musculoskeletal: Denies back pain or myalgias Integumentary Denies rash Neurologic Neurologic: Denies headache(s) Hematologic/Lymphatic Hematologic/Lymphatic: Denies easy bleeding or easy bruising EXAM Physical Exam Const Vital Signs: 05/09/23 03:12 05/09/23 05:19 Temperature 97.3 F L Temperature Source Temporal Pulse Rate 100 86 Respiratory Rate 18 16 Blood Pressure 149/91 H 149/88 H Blood Pressure Mean 110 108 Pulse Ox 94 96 Positive well nourished and well developed General Appearance ED: well developed HEENT HEENT Narrative: Normocephalic atraumatic Eyes PERRL and EOMs intact bilaterally General Eye ED: Negative for scleral icterus Neck supple Resp normal respiratory effort and clear to auscultation bilaterally Cardio regular rate and regular rhythm GI non-tender GI Narrative: Abdomen is soft with slight distention. There is increased tympany noted in the midepigastric and left upper quadrant. However there is no obvious pain with palpation no voluntary guarding or rigidity or pulsatile mass or fluid wave. No organomegaly to suggest urinary retention. Auscultation: normoactive bowel sounds Palpation: soft Extremity normal to inspection Neuro CN's II-XII intact bilaterally Neuro Narrative: Patient is at his baseline mental status Sensorium / Orientation: alert Psych Psych Narrative: Patient has a flat affect Skin no rashes or lesions noted General Skin Exam: Negative for jaundice MDM MDM MDM Narrative Medical decision making narrative: Patient presented to the ER mildly hypertensive but otherwise with stable vitals. Patient and sister reported that after his enema he did have a bowel movement and large passage of gas. There was only one episode of vomiting and only questionable blood as sister reported that the emesis was red in color but that he also had pizza for dinner which could have change the color of the emesis. However as he has had recurrent bowel obstructions and he is slightly distended and had constipation and vomiting today the sister is concern for that once again. White count is slightly bumped at 15.7 which could just be stress response his sodium is chronically low at 127 which is near baseline and he does not have signs of acute kidney injury. His urine does show changes consistent with infection which correlates with his history of recurrent catheter associated UTIs but he is not showing laboratory or vital sign changes concerning for urosepsis. The urine was sent for culture and he was started on Rocephin. He has not had any further bouts of vomiting since his arrival to the ER and was able to drink oral contrast without difficulty. CT scan shows intestinal dilation with transition point consistent with recurrent small bowel obstruction. Secondary to this I discussed the case with general surgery on-call. They feel that patient may does have an ileus secondary to his recurrent UTI but this also could be a recurrent SBO which may require surgery and with his ADMINISTRATIVE SECRETARY shunt will require a higher level of care at a tertiary center. Family is requesting admission at this facility and therefore medicine will be contacted. Even though he is not had any bouts of vomiting after reviewing the CT scan general surgery recommends NG tube placement at this time. The case was also discussed with medicine but as general surgery would not be able to perform any type of operation even if it was lifesaving based on his history of ADMINISTRATIVE SECRETARY shunt they recommend transfer and therefore we will reach out to the [facility] facility where he was admitted roughly 1 month ago to see if they are capable of accepting for recurrent care at this time. History & Record Review Discussion w/independent historian: Patient and Family Lab Data Attestation: I reviewed the patient's lab results. Labs: Laboratory Results - last 24 hr 05/09/23 05/09/23 05/09/23 03:47 03:47 03:47 WBC 15.7 H RBC 5.31 Hgb 15.5 Hct 45.9 MCV 86.4 MCH 29.2 MCHC 33.8 RDW Std Deviation 39.4 RDW Coeff of Frieda 12.5 Plt Count 423 MPV 10.0 Immature Gran % (Auto) 0.400 Neut % (Auto) 85.7 H Lymph % (Auto) 6.4 L Bea[place]gard % (Auto) 7.2 Eos % (Auto) 0.1 Baso % (Auto) 0.2 Absolute Neuts (auto) 13.4 H Absolute Lymphs (auto) 1.00 Nucleated RBC % 0 Sodium 127 L Potassium 3.9 Chloride 91 L Carbon Dioxide 26.0 Anion Gap 10 BUN 19 H Creatinine 0.84 Estim Creat Clear Calc 78.98 Est GFR (MDRD) Af Amer 122 Est GFR (MDRD) Non-Af 101 BUN/Creatinine Ratio 22.6 H Glucose 135 H Lactic Acid 1.0 Calcium 9.7 Total Bilirubin 0.90 Direct Bilirubin 0.20 AST 16 ALT 19 Alkaline Phosphatase 80 Total Protein 8.0 Albumin 3.8 Globulin 4.2 Lipase 29 Urine Color Urine Clarity Urine pH Ur Specific [place] Urine Protein Urine Glucose (UA) Urine Ketones Urine Occult Blood Urine Nitrite Urine Bilirubin Urine Urobilinogen Ur Leukocyte Esterase Urine RBC Urine WBC Ur Squamous Epith Cells Urine Bacteria Urine Mucus 05/09/23 05:20 WBC RBC Hgb Hct MCV MCH MCHC RDW Std Deviation RDW Coeff of Frieda Plt Count MPV Immature Gran % (Auto) Neut % (Auto) Lymph % (Auto) Bea[place]gard % (Auto) Eos % (Auto) Baso % (Auto) Absolute Neuts (auto) Absolute Lymphs (auto) Nucleated RBC % Sodium Potassium Chloride Carbon Dioxide Anion Gap BUN Creatinine Estim Creat Clear Calc Est GFR (MDRD) Af Amer Est GFR (MDRD) Non-Af BUN/Creatinine Ratio Glucose Lactic Acid Calcium Total Bilirubin Direct Bilirubin AST ALT Alkaline Phosphatase Total Protein Albumin Globulin Lipase Urine Color Yellow Urine Clarity Clear Urine pH 7.0 Ur Specific [place] 1.010 Urine Protein 15 H Urine Glucose (UA) Normal Urine Ketones 5 H Urine Occult Blood 10 H Urine Nitrite Negative Urine Bilirubin Negative Urine Urobilinogen Normal Ur Leukocyte Esterase 500 H Urine RBC 0-5 SEEN Urine WBC 25-50 SEEN Ur Squamous Epith Cells 0 SEEN Urine Bacteria 2+ Urine Mucus 0 SEEN Radiography Diagnostic Testing: Clinical Impression(s) from Imaging Studies Abdomen CT 05/09/23 03:35 IMPRESSION: 1. Progressive or recurrent distention of small bowel with transition to decompressed bowel in the central pelvis concerning for small bowel obstruction. 2. Bilateral inguinal hernias, containing bladder on the left, with dependent stones within the pelvic bladder and herniated bladder segment. Diffuse chronic bladder wall thickening likely secondary to chronic outlet dysfunction in setting of large prostate. Correlate with urine to exclude cystitis. 3. Mild bilateral renal pelviectasis. Electronically Signed: Beck Mcgovern MD at 7:01 EDT , ADDENDUM: 05/09/23 0712 IMPRESSION: 1. Progressive or recurrent distention of small bowel with transition to decompressed bowel in the central pelvis concerning for small bowel obstruction. 2. Bilateral inguinal hernias, containing bladder on the left, with dependent stones within the pelvic bladder and herniated bladder segment. Diffuse chronic bladder wall thickening likely secondary to chronic outlet dysfunction in setting of large prostate. Correlate with urine to exclude cystitis. 3. Mild bilateral renal pelviectasis. N.B. : ALPHONSE Kim, confirmed on 05/09/2023 07:05:15 (ET) that the healthcare facility has received the radiology report. Electronically Signed: Beck Mcgovern MD at 7:01 EDT Reading Location ID and State: [facility] / [place] Tel , Service support , Management Discussion w/another healthcare provider: Hospitalist and Guide Dog Instructor Discharge Plan Triage Chief Complaint: GI Bleed ED Provider: Abdirahman Jones Dx/Rx/DC Orders Clinical Impression: Recurrent urinary tract infection, Chronic hyponatremia, SBO (small bowel obstruction) Prescriptions: No Action Linzess 72 mcg capsule 290 mcg PO DAILY Label Comments: TAKE 1 CAP BY MOUTH ONCE DAILY ON EMPTY STOMACH SWALLOW WHOLE DO NOT CHEW/CRUSH baclofen 5 MG tablet 5 mg PO TID Rx Instructions: Hold for sedation/lethargy Primary Care Provider: Lyndon Sanders Referrals: Lyndon Sanders MD [Primary Care Provider] - Disposition Disposition: Acute Care Hospital Discharge Location: [facility]
[2023-05-09] MEDS: 0.9% Normal Saline 1,000 ML 999 ML IV ×2 (03:51→05:18)
[2023-05-09] MEDS: MethylPREDNISolone 125 MG/2 ML Vial IV (03:51)
[2023-05-09] MEDS: DiphenhydrAMINE 50 MG/ML Syringe IV (03:52)
[2023-05-09] MEDS: Ondansetron 4 MG/2 ML Vial IV (03:52)
[2023-05-09 04:03] LABS: Absolute Neutrophil Count 13.4 X10^3/uL (2.0-7.7); Basophil# 0.03 X10^3/uL; Basophil% 0.2 % (0-1); Eosinophil# 0.01 X10^3/uL; Eosinophils% 0.1 % (0-5); Hematocrit 45.9 % (40-54); Hemoglobin 15.5 g/dL (13.0-16.5); Lymphocyte % 6.4 % (19-41); Mean Corp Hgb Conc 33.8 g/dL (32-36); Mean Corpuscular Hgb 29.2 pg (27.0-32.0); Mean Corpuscular Volume 86.4 fL (80-94); Monocyte# 1.13 X10^3/uL; Monocyte% 7.2 % (0-10); NRBC Flagged by Analyzer 0 % (0-5); Neutrophil # 13.42 X10^3/uL (2.7-7.7); Neutrophil % 85.7 % (47-70); Platelet Count 423 K/mm3 (150-450); RBC Distribution Width CV 12.5 % (11.6-14.6); RBC Distribution Width SD 39.4 fl (35.1-43.9); Red Blood Count 5.31 M/mm3 (4.6-6.2); White Blood Count 15.7 K/mm3 (4.4-11.0)
[2023-05-09 04:19] LABS: AST(SGOT) 16 U/L (15-37); Alanine Aminotransfer ALT/SGPT 19 U/L (16-61); Albumin, Serum 3.8 g/dL (3.2-5.0); Alkaline Phosphatase 80 U/L (45-117); Anion Gap 10 (5-15); BUN 19 mg/dL (7-18); BUN/Creat Ratio 22.6 RATIO (10-20); Calcium,Total 9.7 mg/dL (8.5-10.1); Chloride 91 mmol/L (98-107); Creatinine, Serum 0.84 mg/dL (0.70-1.30); EST Glomerular Filtration Rate 101 mL/min (>60); Est Glom Filt Rate - Afr Amer 122 mL/min (>60); Estimated Creatinine Clearance 78.98 ml/min; Globulin 4.2 g/dL (2.2-4.2); Glucose 135 mg/dL (74-106); Lipase 29 U/L (13-75); Potassium 3.9 mmol/L (3.5-5.1); Sodium Level 127 mmol/L (136-145)
[2023-05-09 05:24] LABS: Mucous, Urine 0 SEEN /hpf (<or=2+); Squamous Epithelial Cells - UA 0 SEEN /hpf (0-5)
[2023-05-09 05:41] LABS: Color, Urine Yellow (Yellow); Glucose, Dipstick Normal (Normal); Ketone-Dipstick 5 mg/dl (Negative); Leukocyte Esterase-Dipstick 500 /ul (Negative); Nitrite-Dipstick Negative (Negative); Occult Blood-Urine 10 /ul (Negative); Protein-Dipstick 15 mg/dl (Negative); Urine Bilirubin Dipstick Negative (Negative); Urine Clarity Clear (Clear); Urine Urobilinogen Normal (Normal)
[2023-05-09 06:46] LABS: White Blood Cells 25-50 SEEN /hpf (0-5)
[2023-05-09 06:47] LABS: Bacteria 2+ /hpf (None Seen); Red Blood Cells-Urine 0-5 SEEN /hpf (0-5)
[2023-05-09] MEDS: Ceftriaxone 1 GM/50 ML BAG IV (07:12)
--- NOTE | 2023-05-09 07:20 | RAD_ITS ---
EXAM: XR ABDOMEN, 1 VIEW CLINICAL INDICATION: s/p NG tube placement -- KUB with both diaphragms for NG/OG Verification TECHNIQUE: Frontal supine view of the abdomen/pelvis. COMPARISON: No relevant prior studies available. FINDINGS: GASTROINTESTINAL TRACT: Prominent diffuse gaseous distention of the bowel again noted. ORGANS: No organomegaly. BONES/JOINTS: No acute abnormality. TUBES, LINES AND DEVICES: Enteric tube extends into the stomach. RAD/Abdomen Single View (Portable) IMPRESSION: Satisfactory endogastric tube placement. Persistent diffuse bowel ileus. Electronically Signed: Chemo Bell MD at 8:26 EDT ,
[2023-05-09] MEDS: Oxymetazoline 0.05% 1 SPRAY SPRAY.BTL 2 SPRAY NASAL (07:48)
--- NOTE | 2023-05-09 08:02 | NURSING ---
CALLED [facility] TRANSFER LINE. TALKED TO
--- NOTE | 2023-05-09 08:32 | NURSING ---
DR LINDA LYLE
--- NOTE | 2023-05-09 09:13 | HP.PCM.HOS_ITS ---
HPI - General General Date of Service: 05/09/23 Chief Complaint: abdominal pain and distention HPI Narrative JIAN ALTAMIRANO, is a 57 M who presents with worsening abdominal pain and distention. Began around 1 AM. CAT scan performed in the emergency room showed progressive or recurrent distention of small bowel with transition to decompressed bowel in the central pelvis. Concerning for small bowel obstruction. NG tube was placed. ED reached out to [facility] for transfer. They reference the patient had a small bowel follow-through that he had had performed when he was transferred there month ago and showed no small bowel obstruction but was concerning for motility issue. The surgeon there recommended medical admission and conservative management. Patient's sister tells me the patient had not been feeling well for the previous few days but did have flatus and a bowel movement yesterday. She thought that they were through the worst of it until he got worse earlier this morning. [facility] Medical History Bladder diverticulum Bladder stones Catheter-associated urinary tract infection Chronic indwelling Bowman catheter Gastroparesis History of urinary retention Hydrocephalus Hypertension Hyponatremia Ileus Inguinal hernia Normal pressure hydrocephalus Seizures Home Medications linaclotide 72 mcg capsule (Linzess) 290 mcg PO DAILY constipation 07/31/21 [History Last Taken 02/20/23] baclofen 5 mg tablet 5 mg PO TID spasms 07/21/22 [History Last Taken 02/20/23] Allergy/AdvReac Type Severity Reaction Status Date / Time Iodinated Contrast Media Allergy Anaphylaxis Verified 05/09/23 03:11 [Iodinated Contrast Media - IV Dye] nitrofurantoin AdvReac Upset Verified 05/09/23 03:11 Stomach Family History Father Heart disease Kidney stones Prostate disease Brother Kidney stones Other Cancer Peptic ulcer disease Surgical History S/P release of urethral stricture S/P BOOKSTORE CLERK shunt BOOKSTORE CLERK (ventriculoperitoneal) shunt status Social History household members: family Smoking Status: Never smoker alcohol intake: never substance use type: does not use ROS ROS Narrative All review of systems were negative except as mentioned above in the history of present illness and the other review of systems. Vital Signs Vital Signs Vital Signs: 05/09/23 03:12 05/09/23 05:19 05/09/23 07:00 Temperature 36.3 C L Temperature Source Temporal Pulse Rate 100 86 89 Respiratory Rate 18 16 18 Blood Pressure 149/91 H 149/88 H 115/80 Blood Pressure Mean 110 108 91 Pulse Ox 94 96 97 Oxygen Delivery Method Room Air 05/09/23 09:00 Temperature Temperature Source Pulse Rate Respiratory Rate Blood Pressure 126/77 H Blood Pressure Mean 93 Pulse Ox Oxygen Delivery Method Weight Weight: 56.2 kg Body Mass Index (BMI) 21.9 Physical Exam Const alert and no apparent distress HEENT normocephalic, head/scalp atraumatic and hearing grossly normal bilaterally Eyes Eyes Narrative: No icterus Neck no lymphadenopathy Resp normal respiratory effort, no retractions, no use of accessory muscles and clear to auscultation bilaterally Cardio regular rate, regular rhythm, S1 normal heart sound and S2 normal heart sound GI GI Narrative: Hypoactive bowel sounds. Nondistended. Nontender. Extremity Extremity Narrative: Atrophy Neuro Sensorium / Orientation: awake and alert Speech: speech normal Psych Psych Narrative: Flat affect Results Lab / Micro Data Attestation: I reviewed the patient's lab results. Result Diagrams: 05/09/23 03:47 05/09/23 03:47 Labs: Laboratory Results - last 24 hr 05/09/23 03:47: WBC 15.7 H, RBC 5.31, Hgb 15.5, Hct 45.9, MCV 86.4, MCH 29.2, M CHC 33.8, RDW Std Deviation 39.4, RDW Coeff of Frieda 12.5, Plt Count 423, MPV 10.0, Immature Gran % (Auto) 0.400, Neut % (Auto) 85.7 H, Lymph % (Auto) 6.4 L, Coles % (Auto) 7.2, Eos % (Auto) 0.1, Baso % (Auto) 0.2, Absolute Neuts (auto) 13.4 H, Absolute Lymphs (auto) 1.00, Nucleated RBC % 0 05/09/23 03:47: Sodium 127 L, Potassium 3.9, Chloride 91 L, Carbon Dioxide 26.0, Anion Gap 10, BUN 19 H, Creatinine 0.84, Estim Creat Clear Calc 78.98, Est GFR (MDRD) Af Amer 122, Est GFR (MDRD) Non-Af 101, BUN/Creatinine Ratio 22.6 H, Glucose 135 H, Calcium 9.7, Total Bilirubin 0.90, Direct Bilirubin 0.20, AST 16, ALT 19, Alkaline Phosphatase 80, Total Protein 8.0, Albumin 3.8, Globulin 4.2, Lipase 29 05/09/23 03:47: Lactic Acid 1.0 05/09/23 05:20: Urine Color Yellow, Urine Clarity Clear, Urine pH 7.0, Ur Specific Som[place] 1.010, Urine Protein 15 H, Urine Glucose (UA) Normal, Urine Ketones 5 H, Urine Occult Blood 10 H, Urine Nitrite Negative, Urine Bilirubin Negative, Urine Urobilinogen Normal, Ur Leukocyte Esterase 500 H, Urine RBC 0-5 SEEN, Urine WBC 25-50 SEEN, Ur Squamous Epith Cells 0 SEEN, Urine Bacteria 2+, Urine Mucus 0 SEEN Radiology Impression Abdomen CT 05/09/23 03:35 IMPRESSION: 1. Progressive or recurrent distention of small bowel with transition to decompressed bowel in the central pelvis concerning for small bowel obstruction. 2. Bilateral inguinal hernias, containing bladder on the left, with dependent stones within the pelvic bladder and herniated bladder segment. Diffuse chronic bladder wall thickening likely secondary to chronic outlet dysfunction in setting of large prostate. Correlate with urine to exclude cystitis. 3. Mild bilateral renal pelviectasis. Electronically Signed: Beck Mcgovern MD at 7:01 EDT Reading Location ID and State: [facility] / [place] Tel , Service support , ADDENDUM: 05/09/23 0745 IMPRESSION: 1. Progressive or recurrent distention of small bowel with transition to decompressed bowel in the central pelvis concerning for small bowel obstruction. 2. Bilateral inguinal hernias, containing bladder on the left, with dependent stones within the pelvic bladder and herniated bladder segment. Diffuse chronic bladder wall thickening likely secondary to chronic outlet dysfunction in setting of large prostate. Correlate with urine to exclude cystitis. 3. Mild bilateral renal pelviectasis. N.B. : ALPHONSE Kim, confirmed on 05/09/2023 07:05:15 (ET) that the healthcare facility has received the radiology report. Electronically Signed: Beck Mcgovern MD at 7:01 EDT , KUB X-Ray 05/09/23 07:20 IMPRESSION: Satisfactory endogastric tube placement. Persistent diffuse bowel ileus. Electronically Signed: Chemo Bell MD at 8:26 EDT , Assessment & Plan Assessment/Plan (1) SBO (small bowel obstruction): PLAN: Small bowel suction versus ileus. NG tube placed in the emergency room and will continue low intermittent suction N.p.o. Antiemetics I will order a small bowel follow-through. Discussed with the patient and his sister, that my recommendation is for the patient to be transferred as I do not have surgery available at this institution that would be able to do any management in case he gets worse. I did review through [facility] from March and xrays at [facility] please reference hospitalization from March. If patient does get worse, I told them both that it could be detrimental to his health and even his life. They both expressed understanding. If this is found to be more of a motility issue or ileus, may consider doing gastric emptying study at a later point. (2) Chronic hyponatremia: PLAN: IV fluids. Monitor PLAN: Plan Abnormal urinalysis: Not consistent with urinary tract infection. Patient did receive antibiotics. Urinary tract infection ruled out. Chronic conditions * Spina bifida: Hold off on baclofen for now. * Hydrocephalus: BOOKSTORE CLERK shunt in place. VTE prophylaxis: SCDs CODE STATUS: Addressed with the patient. Patient wishes to be DNR Comfort Care arrest no intubation. Charges/Coding Visit Charges Inpatient E&M: 65103 Init Hosp L3
--- NOTE | 2023-05-09 10:11 | NURSING ---
ngt clamped for radiology transport.
--- NOTE | 2023-05-09 10:30 | RAD_ITS ---
CLINICAL HISTORY: Male, 57 years old. Small bowel obstruction PROCEDURE: 11 overhead KUB films post enteric contrast via enteric tube. Including a vp home health film. Findings: Peritoneal catheter right abdomen and pelvis. 4 cm radiodense lesion right pelvis unchanged. Enteric tube in the stomach. Gas-filled loops of small and large bowel noted throughout. Severe degenerative change dislocation left hip. Scoliosis. Oral contrast is followed throughout the distended small bowel and appears to be within the colon at 6 hours. RAD/Small Bowel Series Only IMPRESSION: Incomplete small bowel obstruction Electronically Signed: Chris Romero MD at 18:16 EDT ,
[2023-05-09] MEDS: 0.9% Normal Saline 1,000 ML 150 ML IV ×2 (12:12→18:48)
--- NOTE | 2023-05-09 15:11 | CHAPLAIN ---
Type of Pastoral Visit ___ Initial Visit ___ Follow-up Visit ___ On-call Visit ___ General Patient Visit ___ Spiritual Assessment ___ Family Conference ___ Bereavement ___ Rapid Response ___ Code Blue ___ Other (describe below) Pastoral Care Referral From ___ Patient ___ Family ___ Nurse ___ Physician ___ Ventilating Engineer ___ Personnel Recruiter ___ Other (describe below) Sacrament/Intervention ___ Active listening ___ Anointing ___ Cheondoism ___ Bereavement ___ Communion ___ Liset exploration ___ ___ Life review ___ Prayer ___ Reconciliation ___ Sacrament of Sick ___ Supportive presence ___ Wedding ___ Other (describe below) Pastoral Comments patient is sleeping, did not disturb
[2023-05-10] MEDS: 0.9% Normal Saline 1,000 ML 150 ML IV ×4 (00:09→20:15)
[2023-05-10 05:48] VITALS: BP 134/86; PULSE 84; RESP 18; TEMP 37.4; O2SAT 94
[2023-05-10 06:04] LABS: Absolute Lymphocyte Count 1.22 X10^3/uL (0.83-4.51); Absolute Neutrophil Count 11.5 X10^3/uL (2.0-7.7); Basophil# 0.02 X10^3/uL; Basophil% 0.1 % (0-1); Hemoglobin 11.8 g/dL (13.0-16.5); Lymphocyte # 1.22 X10^3/ul (0.83-4.51); Lymphocyte % 8.5 % (19-41); Mean Corp Hgb Conc 32.8 g/dL (32-36); Mean Corpuscular Hgb 29.6 pg (27.0-32.0); Mean Corpuscular Volume 90.2 fL (80-94); Mean Platelet Vol. 10.6 fl (6.2-12.0); Monocyte# 1.49 X10^3/uL; Monocyte% 10.4 % (0-10); NRBC Flagged by Analyzer 0 % (0-5); Neutrophil # 11.52 X10^3/uL (2.7-7.7); Neutrophil % 80.6 % (47-70); Platelet Count 328 K/mm3 (150-450); Red Blood Count 3.99 M/mm3 (4.6-6.2); White Blood Count 14.3 K/mm3 (4.4-11.0)
[2023-05-10 07:03] LABS: Anion Gap 5 (5-15); BUN 17 mg/dL (7-18); BUN/Creat Ratio 25.6 RATIO (10-20); Calcium,Total 7.6 mg/dL (8.5-10.1); Chloride 109 mmol/L (98-107); Creatinine, Serum 0.66 mg/dL (0.70-1.30); EST Glomerular Filtration Rate 132 mL/min (>60); Est Glom Filt Rate - Afr Amer 160 mL/min (>60); Estimated Creatinine Clearance 100.61 ml/min; Glucose 119 mg/dL (74-106); Potassium 3.4 mmol/L (3.5-5.1); Sodium Level 140 mmol/L (136-145)
--- NOTE | 2023-05-10 07:38 | PCM.PN.HOSP ---
Reason for Visit Reason for Visit: Diagnoses Hypo-osmolality and hyponatremia (05/09/23) Unspecified intestinal obstruction, unspecified as to partial versus complete obstruction (05/09/23) Subjective Subjective Denies flatus or any bowel movements. Feels that he should have a suppository for bowel movement. Objective Data Objective Data Vital Signs: Vital Signs Temp Pulse Resp BP Pulse Ox O2 Del Method 37.4 C H 84 18 134/86 H 94 Room Air 05/10/23 05:48 05/10/23 05:48 05/10/23 05:48 05/10/23 05:48 05/10/23 05:48 05/10/23 05:48 Oxygen Delivery Method Room Air Weight: 56.245 kg Body Mass Index (BMI) 21.9 Intake & Output: Intake and Output for Last 24 Hours 05/08/23 05/09/23 05/10/23 23:59 23:59 23:59 Intake Total 3240 / 3240 1890.0 / 1890.0 Output Total 2750 / 2750 900 / 900 Balance 490 / 490 990.0 / 990.0 Lab / Micro Data Result Diagrams: 05/10/23 05:21 05/10/23 05:21 Labs: Laboratory Results - last 24 hr 05/10/23 05:21: WBC 14.3 H, RBC 3.99 L, Hgb 11.8 L, Hct 36.0 L, MCV 90.2, MCH 29.6, MCHC 32.8, RDW Std Deviation 43.0, RDW Coeff of Frieda 13.0, Plt Count 328, MPV 10.6, Immature Gran % (Auto) 0.400, Neut % (Auto) 80.6 H, Lymph % (Auto) 8.5 L, Dillon % (Auto) 10.4 H, Eos % (Auto) 0.0, Baso % (Auto) 0.1, Absolute Neuts (auto) 11.5 H, Absolute Lymphs (auto) 1.22, Nucleated RBC % 0 05/10/23 05:21: Sodium 140, Potassium 3.4 L, Chloride 109 H, Carbon Dioxide 26.0, Anion Gap 5, BUN 17, Creatinine 0.66 L, Estim Creat Clear Calc 100.61, Est GFR (MDRD) Af Amer 160, Est GFR (MDRD) Non-Af 132, BUN/Creatinine Ratio 25.6 H, Glucose 119 H, Calcium 7.6 L Radiography Diagnostic Testing: Radiology Impression KUB X-Ray 05/09/23 07:20 IMPRESSION: Satisfactory endogastric tube placement. Persistent diffuse bowel ileus. Electronically Signed: Chemo Bell MD at 8:26 EDT , Small Bowel X-Ray 05/09/23 10:30 IMPRESSION: Incomplete small bowel obstruction Electronically Signed: Chris Romero MD at 18:16 EDT , Physical Exam Const alert and no apparent distress Constitutional Narrative: NG tube in place with bilious gastric drainage. Resp normal respiratory effort, no retractions, no use of accessory muscles and clear to auscultation bilaterally Cardio regular rate, regular rhythm, S1 normal heart sound and S2 normal heart sound GI GI Narrative: Hypoactive bowel sounds. Nontender. Distended. Extremity normal to inspection Neuro Sensorium / Orientation: awake Assessment & Plan Assessment/Plan (1) SBO (small bowel obstruction): PLAN: NG tube placed in the emergency room and will continue low intermittent suction N.p.o. Antiemetics 05/09: Discussed with the patient and his sister, that my recommendation is for the patient to be transferred as I do not have surgery available at this institution that would be able to do any management in case he gets worse. I did review through [facility] SBFT from March and xrays at [facility]. If patient does get worse, I told them both that it could be detrimental to his health and even his life. They both expressed understanding. If this is found to be more of a motility issue or ileus, may consider doing gastric emptying study at a later point. SBFT from 05/09 showed incomplete SBO 05/10: KUB performed today, results pending. (2) Chronic hyponatremia: PLAN: Improved w IV fluids. Monitor Suspect due to hypovolemia PLAN: Plan Abnormal urinalysis: Not consistent with urinary tract infection. Patient did receive antibiotics. Urinary tract infection ruled out. Chronic conditions Spina bifida: Hold off on baclofen for now. 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 VTE prophylaxis: SCDs CODE STATUS: Addressed with the patient. Patient wishes to be DNR Comfort Care arrest no intubation. Charges/Coding Visit Charges Inpatient E&M: 60429 Subs Hosp L2
--- NOTE | 2023-05-10 07:41 | RAD_ITS ---
STUDY: X-RAY - ABDOMEN/PELVIS REASON FOR EXAM: Male, 57 years old. SBO TECHNIQUE: Single AP view of the abdomen / pelvis. COMPARISON: Comparison is made with prior study dated May 09, 2023. FINDINGS: The tip of a nasogastric tube is in the body of the stomach. A right-sided ventriculoperitoneal shunt tube is seen. Contrast is seen within the entire colon. Persistent ileus pattern of the small bowel and distal colon. The visualized liver, spleen and kidneys are grossly normal in size and morphology. Normal soft tissue structures. Normal visualized osseous structures. RAD/Abdomen Single View (Portable) IMPRESSION: Contrast is seen within the colon. Persistent ileus distention of the colon and small bowel. Electronically Signed: Kingsley Butler MD at 13:45 EDT ,
[2023-05-10 09:26] VITALS: BP 144/81; PULSE 93; RESP 18; TEMP 37; O2SAT 97
--- NOTE | 2023-05-10 11:40 | CASEMGMT ---
NEIL EATON Assessment: Face to Face with pt for initial transition planning/care coordination assessment. NEIL EATON introduced self and role at [facility], pt voices understanding and consents to assessment. Pt is A/O x3 and answers all questions appropriately at this time. Pt lying in bed with NG in and pillowcase over head in no distress. Care providers, pharmacy, and demographics verified/updated. Admitting Dx: SBO PCP:Tommy Specialists:Kimberlyn, neuro and uro at [facility]- pt cannot recall name Preferred Pharmacy: [facility] Insurance: [facility] Prescription Benefit: yes LNOK: Yakelin Bansal, sister; Isadora Fuentes, sister Living Arrangements: Pt lives in a two story home with a ramp to enter. Pt uses the main level. Pt has his sisters or sister's sig other present with him at all times. Pt reports family provides all ADL/IADL's. Pt denies concerns at home. Transportation: Pt sister Lesli provides transportation to medical appts. DME/HHC/SNF: Pt has a 3 prong honduran crab cane, crutches, walker, w/c, grab bars, BSC and raised toilet seat. Pt is active with [facility] for SN for cath changes and would like them to return upon dc. Pt denies need for list of other agencies to chose from. Pt denies SNF stays. Pt states no concerns with going home at time of dc. Referral via careport to [facility] per dc supply chain planner, message to [facility] intake. Pt states no further concerns/needs. CM to follow. Advised pt to ask CM if any further question/concerns/needs arise, voices understanding. Pt Goal: Home with [facility] to resume Plan: Home with [facility] to resume
--- NOTE | 2023-05-10 11:47 | CASEMGMT ---
Discharge Planning Referral sent [facility] Felicita Armenta, Discharge Planning Asst.
--- NOTE | 2023-05-10 14:11 | CHAPLAIN ---
Type of Pastoral Visit _x__ Initial Visit ___ Follow-up Visit ___ On-call Visit ___ General Patient Visit ___ Spiritual Assessment ___ Family Conference ___ Bereavement ___ Rapid Response ___ Code Blue ___ Other (describe below) Pastoral Care Referral From _x__ Patient ___ Family ___ Nurse ___ Physician ___ Basketball Player ___ Content Assistant ___ Other (describe below) Sacrament/Intervention _x__ Active listening ___ Anointing ___ Islam ___ Bereavement ___ Communion ___ Liset exploration ___ ___ Life review _x__ Prayer ___ Reconciliation ___ Sacrament of Sick _x__ Supportive presence ___ Wedding ___ Other (describe below) Pastoral Comments patient is awake on this attempt to visit; sister is in the room; pt states that I am managing but sister adds that still need to find out why this is happening and goes on to describe a new medicine that will be a trial to see if it can benefit patient; pt does answer questions with some difficulty due to gastric tube down throat; both welcome prayer for support
[2023-05-10] MEDS: Bisacodyl 10 MG Suppository RC (15:10)
[2023-05-10] MEDS: Ceftriaxone 1 GM/50 ML BAG IV (15:10)
[2023-05-10] MEDS: Metoclopramide 10 MG/2 ML Vial 5 MG IV ×3 (15:13→23:58)
[2023-05-10] MEDS: 0.9% Saline Lock 10 ML Syringe IV ×2 (15:13→23:58)
[2023-05-10 16:22] VITALS: BP 130/80; PULSE 80; RESP 18; TEMP 37.1; O2SAT 98
[2023-05-10 21:41] VITALS: BP 139/75; PULSE 90; RESP 16; TEMP 36.8; O2SAT 94
[2023-05-11 01:48] VITALS: BP 140/59; PULSE 84; RESP 16; TEMP 36.6; O2SAT 100
[2023-05-11] MEDS: 0.9% Normal Saline 1,000 ML 150 ML IV ×4 (02:56→23:51)
[2023-05-11] MEDS: Metoclopramide 10 MG/2 ML Vial 5 MG IV ×2 (06:00→12:14)
[2023-05-11] MEDS: 0.9% Saline Lock 10 ML Syringe IV (06:00)
[2023-05-11 07:12] LABS: Absolute Lymphocyte Count 1.04 X10^3/uL (0.83-4.51); Basophil# 0.02 X10^3/uL; Basophil% 0.1 % (0-1); Hematocrit 33.8 % (40-54); Hemoglobin 11.1 g/dL (13.0-16.5); Lymphocyte # 1.04 X10^3/ul (0.83-4.51); Lymphocyte % 7.7 % (19-41); Mean Corp Hgb Conc 32.8 g/dL (32-36); Mean Corpuscular Hgb 30.1 pg (27.0-32.0); Mean Corpuscular Volume 91.6 fL (80-94); Monocyte# 1.47 X10^3/uL; Monocyte% 10.8 % (0-10); NRBC Flagged by Analyzer 0 % (0-5); Neutrophil # 10.95 X10^3/uL (2.7-7.7); Neutrophil % 80.8 % (47-70); Platelet Count 286 K/mm3 (150-450); RBC Distribution Width SD 43.8 fl (35.1-43.9); Red Blood Count 3.69 M/mm3 (4.6-6.2); White Blood Count 13.6 K/mm3 (4.4-11.0)
--- NOTE | 2023-05-11 07:15 | PCM.PN.HOSP ---
Reason for Visit Reason for Visit: Diagnoses Hypo-osmolality and hyponatremia (05/09/23) Unspecified intestinal obstruction, unspecified as to partial versus complete obstruction (05/09/23) Subjective Subjective Some flatus when lying on his side. Objective Data Objective Data Vital Signs: Vital Signs Temp Pulse Resp BP Pulse Ox O2 Del Method 36.6 C 84 16 140/59 H 100 Room Air 05/11/23 01:48 05/11/23 01:48 05/11/23 01:48 05/11/23 01:48 05/11/23 01:48 05/11/23 01:48 Oxygen Delivery Method Room Air Weight: 56.245 kg Body Mass Index (BMI) 21.9 Intake & Output: Intake and Output for Last 24 Hours 05/09/23 05/10/23 05/11/23 23:59 23:59 23:59 Intake Total 3240 / 3240 4240.0 / 4240.0 100 / 100 Output Total 2750 / 2750 3750 / 3750 Balance 490 / 490 490.0 / 490.0 100 / 100 Lab / Micro Data 05/11/23 05:25 05/11/23 05:25 Labs: Laboratory Results - last 24 hr 05/11/23 05:25: WBC 13.6 H, RBC 3.69 L, Hgb 11.1 L, Hct 33.8 L, MCV 91.6, MCH 30.1, MCHC 32.8, RDW Std Deviation 43.8, RDW Coeff of Frieda 13.0, Plt Count 286, MPV 11.0, Immature Gran % (Auto) 0.600, Neut % (Auto) 80.8 H, Lymph % (Auto) 7.7 L, Grant % (Auto) 10.8 H, Eos % (Auto) 0.0, Baso % (Auto) 0.1, Absolute Neuts (auto) 11.0 H, Absolute Lymphs (auto) 1.04, Nucleated RBC % 0 Micro: Microbiology 05/09/23 05:20 Urine Catheter - Bowman Urine Culture - Preliminary GNR lactose acquisition consultant Gram negative kennedy Radiography Diagnostic Testing: Radiology Impression KUB X-Ray 05/10/23 07:41 IMPRESSION: Contrast is seen within the colon. Persistent ileus distention of the colon and small bowel. Electronically Signed: Kingsley Butler MD at 13:45 EDT , Physical Exam Const alert and no apparent distress HEENT HEENT Narrative: NGT in place. Resp normal respiratory effort, no retractions, no use of accessory muscles and clear to auscultation bilaterally Cardio regular rate, regular rhythm, S1 normal heart sound and S2 normal heart sound GI normal to inspection, nondistended, normoactive bowel sounds, soft to palpation and non-tender Assessment & Plan Assessment/Plan (1) SBO (small bowel obstruction): PLAN: NG tube placed in the emergency room and will continue low intermittent suction N.p.o. Antiemetics 05/09: Discussed with the patient and his sister, that my recommendation is for the patient to be transferred as I do not have surgery available at this institution that would be able to do any management in case he gets worse. I did review through [facility] SBFT from March and xrays at [facility]. If patient does get worse, I told them both that it could be detrimental to his health and even his life. They both expressed understanding. If this is found to be more of a motility issue or ileus, may consider doing gastric emptying study at a later point. SBFT from 05/09 showed incomplete SBO 05/10: KUB performed today, results pending. Started on metoclopramide. 05/11: ileus pattern still present. Treat UTI. Correct electrolytes. (2) Chronic hyponatremia: PLAN: Improved w IV fluids. Monitor Suspect due to hypovolemia (3) Urinary tract infection: QUALIFIERS: Hematuria presence: without hematuria Urinary tract infection type: acute cystitis Qualified Code(s): N30.00 - Acute cystitis without hematuria PLAN: GNR On CTX Follow up Cx. (4) BPH (benign prostatic hyperplasia): QUALIFIERS: Lower urinary tract symptom presence: symptoms present Lower urinary tract symptom detail: urinary retention Qualified Code(s): N40.1 - Benign prostatic hyperplasia with lower urinary tract symptoms; R33.8 - Other retention of urine PLAN: CT showed diffuse chronic bladder wall thickening likely 2/2 chronic outlet dysfuntion in settin of large prostate. When able to take PO, start tamsulosin. (5) Hypokalemia: PLAN: Replace Check Mag and replace if low. PLAN: Plan Chronic conditions Spina bifida: Hold off on baclofen for now. Hydrocephalus: POST ANESTHESIA NURSE shunt in place. VTE prophylaxis: SCDs CODE STATUS: Addressed with the patient. Patient wishes to be DNR Comfort Care arrest no intubation. Charges/Coding Visit Charges Inpatient E&M: 96407 Subs Hosp L2
--- NOTE | 2023-05-11 07:16 | RAD_ITS ---
STUDY: X-RAY - ABDOMEN/PELVIS REASON FOR EXAM: Male, 57 years old. Ileus TECHNIQUE: Single AP view of the abdomen / pelvis. COMPARISON: Comparison is made with prior study dated May 10, 2023. FINDINGS: A right-sided ventriculoperitoneal shunt tube is seen. Oral contrast is seen within the entire colon down to the rectum. Stable ileus pattern of the small bowel and colon. Normal soft tissue structures. 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 RAD/Abdomen Single View (Portable) IMPRESSION: Stable examination. Electronically Signed: Kingsley Butler MD at 8:42 EDT ,
[2023-05-11 07:35] LABS: Anion Gap 8 (5-15); BUN 16 mg/dL (7-18); BUN/Creat Ratio 28.1 RATIO (10-20); Calcium,Total 7.8 mg/dL (8.5-10.1); Chloride 111 mmol/L (98-107); Creatinine, Serum 0.57 mg/dL (0.70-1.30); EST Glomerular Filtration Rate 158 mL/min (>60); Est Glom Filt Rate - Afr Amer 191 mL/min (>60); Estimated Creatinine Clearance 116.49 ml/min; Glucose 104 mg/dL (74-106); Potassium 3.2 mmol/L (3.5-5.1); Sodium Level 144 mmol/L (136-145)
[2023-05-11 08:26] VITALS: BP 128/76; PULSE 83; RESP 16; TEMP 36.7; O2SAT 96
[2023-05-11] MEDS: Ceftriaxone 1 GM/50 ML BAG IV (09:46)
[2023-05-11 11:07] LABS: Magnesium 2.3 mg/dL (1.6-2.6)
[2023-05-11] MEDS: Potassium Chloride 10mEq/100mL 10 MEQ/100 ML IV.SOLN. 100 MEQ IV BOLUS ×2 (12:14→14:03)
[2023-05-11] MEDS: Bisacodyl 10 MG Suppository RC (14:01)
[2023-05-11 14:05] VITALS: BP 137/88; PULSE 88; RESP 16; TEMP 36.7; O2SAT 96
[2023-05-11] MEDS: Potassium Chloride 10mEq/100mL 10 MEQ/100 ML IV.SOLN. 75 MEQ IV BOLUS ×2 (16:11→17:32)
[2023-05-11 20:30] VITALS: BP 152/92; PULSE 85; RESP 18; TEMP 37.2; O2SAT 97
[2023-05-12 02:00] VITALS: BP 128/71; PULSE 89; RESP 16; TEMP 37.2; O2SAT 95
[2023-05-12] MEDS: 0.9% Normal Saline 1,000 ML 150 ML IV ×3 (05:56→18:25)
[2023-05-12 06:49] LABS: Anion Gap 8 (5-15); BUN 9 mg/dL (7-18); BUN/Creat Ratio 20.2 RATIO (10-20); Calcium,Total 7.9 mg/dL (8.5-10.1); Chloride 106 mmol/L (98-107); Creatinine, Serum 0.44 mg/dL (0.70-1.30); EST Glomerular Filtration Rate 210 mL/min (>60); Est Glom Filt Rate - Afr Amer 254 mL/min (>60); Estimated Creatinine Clearance 150.91 ml/min; Glucose 78 mg/dL (74-106); Potassium 2.8 mmol/L (3.5-5.1); Sodium Level 138 mmol/L (136-145)
[2023-05-12 08:27] VITALS: BP 130/78; PULSE 84; RESP 16; TEMP 37.1; O2SAT 96
--- NOTE | 2023-05-12 08:40 | PCM.PN.HOSP ---
Reason for Visit Reason for Visit: Diagnoses Hypo-osmolality and hyponatremia (05/09/23) Hypokalemia (05/09/23) Unspecified intestinal obstruction, unspecified as to partial versus complete obstruction (05/09/23) Acute cystitis without hematuria (05/09/23) Benign prostatic hyperplasia with lower urinary tract symptoms (05/09/23) Other retention of urine (05/09/23) Subjective Subjective Had some BMs yesterday after suppositories and tap water enema. Objective Data Objective Data Vital Signs: Vital Signs Temp Pulse Resp BP Pulse Ox O2 Del Method 37.1 C 84 16 130/78 H 96 Room Air 05/12/23 08:27 05/12/23 08:27 05/12/23 08:27 05/12/23 08:27 05/12/23 08:27 05/12/23 08:27 Oxygen Delivery Method Room Air Weight: 56.245 kg Body Mass Index (BMI) 21.9 Intake & Output: Intake and Output for Last 24 Hours 05/10/23 05/11/23 05/12/23 23:59 23:59 23:59 Intake Total 4240.0 / 4240.0 5050 / 5050 1312.5 / 1312.5 Output Total 3750 / 3750 3100 / 3100 950 / 950 Balance 490.0 / 490.0 1950 / 1950 362.5 / 362.5 Lab / Micro Data 05/11/23 05:25 05/12/23 05:40 Labs: Laboratory Results - last 24 hr 05/11/23 05:25: Magnesium 2.3 05/12/23 05:40: Sodium 138, Potassium 2.8 L, Chloride 106, Carbon Dioxide 24.0, Anion Gap 8, BUN 9, Creatinine 0.44 L, Estim Creat Clear Calc 150.91, Est GFR (MDRD) Af Amer 254, Est GFR (MDRD) Non-Af 210, BUN/Creatinine Ratio 20.2 H, Glucose 78, Calcium 7.9 L Micro: Microbiology 05/09/23 05:20 Urine Catheter - Bowman Urine Culture - Preliminary GNR lactose creative assistant Gram negative kennedy Radiography Diagnostic Testing: Radiology Impression KUB X-Ray 05/11/23 07:16 IMPRESSION: Stable examination. Electronically Signed: Kingsley Butler MD at 8:42 EDT , Physical Exam Const alert and no apparent distress HEENT head/scalp atraumatic and moist oral mucous membranes Resp normal respiratory effort, no retractions, no use of accessory muscles and clear to auscultation bilaterally Cardio regular rate, regular rhythm, S1 normal heart sound and S2 normal heart sound GI GI Narrative: hypoactive BS. distended. NT. Assessment & Plan Assessment/Plan (1) SBO (small bowel obstruction): PLAN: NG tube placed in the emergency room and will continue low intermittent suction N.p.o. Antiemetics 05/09: Discussed with the patient and his sister, that my recommendation is for the patient to be transferred as I do not have surgery available at this institution that would be able to do any management in case he gets worse. I did review through [facility] SBFT from March and xrays at [facility]. If patient does get worse, I told them both that it could be detrimental to his health and even his life. They both expressed understanding. If this is found to be more of a motility issue or ileus, may consider doing gastric emptying study at a later point. SBFT from 05/09 showed incomplete SBO 05/10: KUB performed today, results pending. Started on metoclopramide. 05/11: ileus pattern still present. Treat UTI. Correct electrolytes. Had BMs 05/12: clinically unchanged. hold off on repeat Xray at this time. reattempt suppositories and enema. Clamp NG and observe. (2) Chronic hyponatremia: PLAN: Improved w IV fluids. Monitor Suspect due to hypovolemia (3) Urinary tract infection: QUALIFIERS: Hematuria presence: without hematuria Urinary tract infection type: acute cystitis Qualified Code(s): N30.00 - Acute cystitis without hematuria PLAN: GNR On CTX Follow up Cx. (4) BPH (benign prostatic hyperplasia): QUALIFIERS: Lower urinary tract symptom detail: urinary retention Lower urinary tract symptom presence: symptoms present Qualified Code(s): N40.1 - Benign prostatic hyperplasia with lower urinary tract symptoms; R33.8 - Other retention of urine PLAN: CT showed diffuse chronic bladder wall thickening likely 2/2 chronic outlet dysfuntion in settin of large prostate. When able to take PO, start tamsulosin. (5) Hypokalemia: PLAN: Ongoing Replace Magnesium WNL PLAN: Plan Chronic conditions Spina bifida: Hold off on baclofen for now. 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 VTE prophylaxis: SCDs CODE STATUS: Addressed with the patient. Patient wishes to be DNR Comfort Care arrest no intubation. Charges/Coding Visit Charges Inpatient E&M: 33121 Subs Hosp L2
[2023-05-12] MEDS: Potassium Chloride 10mEq/100mL 10 MEQ/100 ML IV.SOLN. 100 MEQ IV BOLUS ×4 (09:11→13:27)
[2023-05-12] MEDS: Ceftriaxone 1 GM/50 ML BAG IV (10:09)
[2023-05-12] MEDS: Bisacodyl 10 MG Suppository RC ×2 (11:11→14:29)
[2023-05-12 11:33] VITALS: BP 135/87; PULSE 81; RESP 16; TEMP 37.5; O2SAT 97
--- NOTE | 2023-05-12 13:28 | NURSING ---
pt sister at bedside and insist that she does his bowel care. pt agreed to have her do it. sister stated she does this every day, and knows him. pt sister gave supp. no results with the supp. pt sister then gave tap water enema, as per dr altman.
[2023-05-12] MEDS: Ondansetron 4 MG/2 ML Vial IV (14:32)
--- NOTE | 2023-05-12 14:34 | NURSING ---
sister stated she gave 500cc tap water enema and has mod results.
[2023-05-12 15:10] LABS: Anion Gap 11 (5-15); BUN 8 mg/dL (7-18); BUN/Creat Ratio 14.7 RATIO (10-20); Chloride 104 mmol/L (98-107); Creatinine, Serum 0.55 mg/dL (0.70-1.30); EST Glomerular Filtration Rate 166 mL/min (>60); Est Glom Filt Rate - Afr Amer 200 mL/min (>60); Estimated Creatinine Clearance 120.73 ml/min; Glucose 80 mg/dL (74-106); Potassium 3.6 mmol/L (3.5-5.1); Sodium Level 138 mmol/L (136-145)
[2023-05-12 15:16] VITALS: BP 111/57; PULSE 74; RESP 16; TEMP 36.7; O2SAT 97
[2023-05-12 21:02] VITALS: BP 118/64; PULSE 81; RESP 18; TEMP 36.4; O2SAT 97
[2023-05-13] MEDS: 0.9% Normal Saline 1,000 ML 150 ML IV ×4 (01:38→22:05)
[2023-05-13 03:02] VITALS: BP 112/68; PULSE 81; RESP 16; TEMP 36.6; O2SAT 95
[2023-05-13 06:45] LABS: Anion Gap 12 (5-15); BUN 6 mg/dL (7-18); BUN/Creat Ratio 16.2 RATIO (10-20); Calcium,Total 7.3 mg/dL (8.5-10.1); Chloride 103 mmol/L (98-107); Creatinine, Serum 0.37 mg/dL (0.70-1.30); EST Glomerular Filtration Rate 259 mL/min (>60); Est Glom Filt Rate - Afr Amer 314 mL/min (>60); Estimated Creatinine Clearance 179.46 ml/min; Glucose 95 mg/dL (74-106); Sodium Level 134 mmol/L (136-145)
--- NOTE | 2023-05-13 06:45 | NURSING ---
Pt sister called [phone] for update. This RN returned call 0510 with update on pt.
--- NOTE | 2023-05-13 08:33 | PCM.PN.HOSP ---
Reason for Visit Reason for Visit: Diagnoses Hypo-osmolality and hyponatremia (05/09/23) Hypokalemia (05/09/23) Unspecified intestinal obstruction, unspecified as to partial versus complete obstruction (05/09/23) Acute cystitis without hematuria (05/09/23) Benign prostatic hyperplasia with lower urinary tract symptoms (05/09/23) Other retention of urine (05/09/23) Subjective Subjective Some BM. Abdomen more distended. Declined metoclopramide as it made him drowsy. Objective Data Objective Data Vital Signs: Vital Signs Temp Pulse Resp BP Pulse Ox O2 Del Method 36.6 C 81 16 112/68 95 Room Air 05/13/23 03:02 05/13/23 03:02 05/13/23 03:02 05/13/23 03:02 05/13/23 03:02 05/13/23 03:02 Oxygen Delivery Method Room Air Weight: 56.245 kg Body Mass Index (BMI) 21.9 Intake & Output: Intake and Output for Last 24 Hours 05/11/23 05/12/23 05/13/23 23:59 23:59 23:59 Intake Total 5050 / 5050 3607.5 / 3607.5 2500 / 2500 Output Total 3100 / 3100 2550 / 2550 900 / 900 Balance 1950 / 1950 1057.5 / 1057.5 1600 / 1600 Lab / Micro Data 05/11/23 05:25 05/13/23 05:25 Labs: Laboratory Results - last 24 hr 05/12/23 14:40: Sodium 138, Potassium 3.6, Chloride 104, Carbon Dioxide 23.0, Anion Gap 11, BUN 8, Creatinine 0.55 L, Estim Creat Clear Calc 120.73, Est GFR (MDRD) Af Amer 200, Est GFR (MDRD) Non-Af 166, BUN/Creatinine Ratio 14.7, Glucose 80, Calcium 8.0 L 05/13/23 05:25: Sodium 134 L, Potassium 3.0 L, Chloride 103, Carbon Dioxide 19.0 L, Anion Gap 12, BUN 6 L, Creatinine 0.37 L, Estim Creat Clear Calc 179.46, Est GFR (MDRD) Af Amer 314, Est GFR (MDRD) Non-Af 259, BUN/Creatinine Ratio 16.2, Glucose 95, Calcium 7.3 L Micro: Microbiology 05/09/23 05:20 Urine Catheter - Bowman Urine Culture - Final Citrobacter freundii Proteus mirabilis Physical Exam Const alert and no apparent distress HEENT head/scalp atraumatic and moist oral mucous membranes Resp normal respiratory effort, no retractions, no use of accessory muscles and clear to auscultation bilaterally Cardio regular rate and regular rhythm GI GI Narrative: distended. high pitched bowel sounds. Assessment & Plan Assessment/Plan (1) SBO (small bowel obstruction): PLAN: NG tube placed in the emergency room and will continue low intermittent suction N.p.o. Antiemetics 05/09: Discussed with the patient and his sister, that my recommendation is for the patient to be transferred as I do not have surgery available at this institution that would be able to do any management in case he gets worse. I did review through [facility] SBFT from March and [facility]. If patient does get worse, I told them both that it could be detrimental to his health and even his life. They both expressed understanding. If this is found to be more of a motility issue or ileus, may consider doing gastric emptying study at a later point. SBFT from 05/09 showed incomplete SBO 05/10: KUB performed today, results pending. Started on metoclopramide. 05/11: ileus pattern still present. Treat UTI. Correct electrolytes. Had BMs 05/12: clinically unchanged. hold off on repeat Xray at this time. reattempt suppositories and enema. Clamp NG and observe. 05/13: worse. pt had been declining metoclopramide due to drowsiness. I recommended taking given lack of improvement. DW pt's sister. Replace suction to NG. NPO. continue reglan. (2) Chronic hyponatremia: PLAN: Improved w IV fluids. Monitor Suspect due to hypovolemia (3) Urinary tract infection: QUALIFIERS: Hematuria presence: without hematuria Urinary tract infection type: acute cystitis Qualified Code(s): N30.00 - Acute cystitis without hematuria PLAN: GNR On CTX Follow up Cx. (4) BPH (benign prostatic hyperplasia): QUALIFIERS: Lower urinary tract symptom detail: urinary retention Lower urinary tract symptom presence: symptoms present Qualified Code(s): N40.1 - Benign prostatic hyperplasia with lower urinary tract symptoms; R33.8 - Other retention of urine PLAN: CT showed diffuse chronic bladder wall thickening likely 2/2 chronic outlet dysfuntion in settin of large prostate. When able to take PO, start tamsulosin. (5) Hypokalemia: PLAN: Ongoing Continue to replace Magnesium WNL PLAN: Plan Chronic conditions Spina bifida: Hold off on baclofen for now. 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 VTE prophylaxis: SCDs CODE STATUS: Addressed with the patient. Patient wishes to be DNR Comfort Care arrest no intubation. Charges/Coding Visit Charges Inpatient E&M: 81863 Subs Hosp L2
[2023-05-13 09:20] VITALS: BP 118/67; PULSE 88; RESP 16; TEMP 37.2; O2SAT 97
[2023-05-13] MEDS: Potassium Chloride 10mEq/100mL 10 MEQ/100 ML IV.SOLN. 100 MEQ IV BOLUS ×4 (09:27→12:52)
[2023-05-13] MEDS: Ceftriaxone 1 GM/50 ML BAG IV (10:15)
[2023-05-13] MEDS: Bisacodyl 10 MG Suppository RC (10:52)
[2023-05-13 11:06] VITALS: BP 124/74; PULSE 61; RESP 16; TEMP 36.8; O2SAT 99
[2023-05-13] MEDS: Metoclopramide 10 MG/2 ML Vial 5 MG IV ×2 (11:45→17:27)
[2023-05-13 14:36] VITALS: BP 111/72; PULSE 69; RESP 16; TEMP 37.2; O2SAT 98
[2023-05-13 21:47] VITALS: BP 120/76; PULSE 78; RESP 16; TEMP 36.9; O2SAT 98
[2023-05-14] MEDS: Metoclopramide 10 MG/2 ML Vial 5 MG IV ×4 (00:01→18:11)
[2023-05-14 03:45] VITALS: BP 139/79; PULSE 77; RESP 16; TEMP 37.2; O2SAT 95
[2023-05-14] MEDS: 0.9% Normal Saline 1,000 ML 150 ML IV ×3 (04:47→19:43)
[2023-05-14 06:37] LABS: Absolute Neutrophil Count 7.6 X10^3/uL (2.0-7.7); Basophil# 0.03 X10^3/uL; Basophil% 0.3 % (0-1); Eosinophil# 0.16 X10^3/uL; Eosinophils% 1.5 % (0-5); Hematocrit 34.5 % (40-54); Hemoglobin 11.5 g/dL (13.0-16.5); Lymphocyte % 16.5 % (19-41); Mean Corp Hgb Conc 33.3 g/dL (32-36); Mean Corpuscular Hgb 29.9 pg (27.0-32.0); Mean Corpuscular Volume 89.6 fL (80-94); Monocyte# 1.31 X10^3/uL; NRBC Flagged by Analyzer 0 % (0-5); Neutrophil # 7.55 X10^3/uL (2.7-7.7); Neutrophil % 69.3 % (47-70); Platelet Count 340 K/mm3 (150-450); RBC Distribution Width CV 12.2 % (11.6-14.6); RBC Distribution Width SD 39.9 fl (35.1-43.9); Red Blood Count 3.85 M/mm3 (4.6-6.2); White Blood Count 10.9 K/mm3 (4.4-11.0)
--- NOTE | 2023-05-14 07:30 | PN.HOSP_ITS ---
Reason for Visit Reason for Visit: Diagnoses Hypo-osmolality and hyponatremia (05/09/23) Hypokalemia (05/09/23) Unspecified intestinal obstruction, unspecified as to partial versus complete obstruction (05/09/23) Acute cystitis without hematuria (05/09/23) Benign prostatic hyperplasia with lower urinary tract symptoms (05/09/23) Other retention of urine (05/09/23) Subjective Subjective Feeling ok. Tolerating some PO. Objective Data Objective Data Vital Signs: Vital Signs Temp Pulse Resp BP Pulse Ox O2 Del Method 37.2 C 77 16 139/79 H 95 Room Air 05/14/23 03:45 05/14/23 03:45 05/14/23 03:45 05/14/23 03:45 05/14/23 03:45 05/14/23 03:45 Oxygen Delivery Method Room Air Weight: 56.245 kg Body Mass Index (BMI) 21.9 Intake & Output: Intake and Output for Last 24 Hours 05/12/23 05/13/23 05/14/23 23:59 23:59 23:59 Intake Total 3607.5 / 3607.5 5292.5 / 5532.5 1480 / 1480 Output Total 2550 / 2550 3250 / 4150 2300 / 2300 Balance 1057.5 / 1057.5 2042.5 / 1382.5 -820 / -820 Lab / Micro Data 05/14/23 05:15 05/14/23 05:15 Labs: Laboratory Results - last 24 hr 05/14/23 05:15: WBC 10.9, RBC 3.85 L, Hgb 11.5 L, Hct 34.5 L, MCV 89.6, MCH 29.9, MCHC 33.3, RDW Std Deviation 39.9, RDW Coeff of Frieda 12.2, Plt Count 340, MPV 11.0, Immature Gran % (Auto) 0.400, Neut % (Auto) 69.3, Lymph % (Auto) 16.5 L, [place] % (Auto) 12.0 H, Eos % (Auto) 1.5, Baso % (Auto) 0.3, Absolute Neuts (auto) 7.6, Absolute Lymphs (auto) 1.80, Nucleated RBC % 0 Micro: Microbiology 05/09/23 05:20 Urine Catheter - Bowman Urine Culture - Final Citrobacter freundii Proteus mirabilis Physical Exam Const alert Resp normal respiratory effort, no retractions, no use of accessory muscles and clear to auscultation bilaterally Cardio regular rate, regular rhythm, S1 normal heart sound and S2 normal heart sound GI normal to inspection, nondistended, normoactive bowel sounds GI Narrative: distended. high pitched bowel sounds Assessment & Plan Assessment/Plan (1) SBO (small bowel obstruction): PLAN: NG tube placed in the emergency room and will continue low intermittent suction N.p.o. Antiemetics 05/09: Discussed with the patient and his sister, that my recommendation is for the patient to be transferred as I do not have surgery available at this institution that would be able to do any management in case he gets worse. I did review through [facility] SBFT from March and xrays at [facility]. If patient does g et worse, I told them both that it could be detrimental to his health and even his life. They both expressed understanding. If this is found to be more of a motility issue or ileus, may consider doing gastric emptying study at a later point. SBFT from 05/09 showed incomplete SBO 05/10: KUB performed today, results pending. Started on metoclopramide. 05/11: ileus pattern still present. Treat UTI. Correct electrolytes. Had BMs 05/12: clinically unchanged. hold off on repeat Xray at this time. reattempt suppositories and enema. Clamp NG and observe. 05/13: worse. pt had been declining metoclopramide due to drowsiness. I recommended taking given lack of improvement. DW pt's sister. Replace suction to NG. NPO. continue reglan. Later in the day, pt had some BMs and flatus. Reclamped NGT and advanced to clear diets. 05/14: ongoing. Add erythromycin. (2) Chronic hyponatremia: PLAN: Improved w IV fluids. Monitor Suspect due to hypovolemia (3) Urinary tract infection: QUALIFIERS: Hematuria presence: without hematuria Urinary tract infection type: acute cystitis Qualified Code(s): N30.00 - Acute cystitis without hematuria PLAN: GNR On CTX Follow up Cx. (4) BPH (benign prostatic hyperplasia): QUALIFIERS: Lower urinary tract symptom detail: urinary retention Lower urinary tract symptom presence: symptoms present Qualified Code(s): N40.1 - Benign prostatic hyperplasia with lower urinary tract symptoms; R33.8 - Other retention of urine PLAN: CT showed diffuse chronic bladder wall thickening likely 2/2 chronic outlet dysfuntion in settin of large prostate. When able to take PO, start tamsulosin. (5) Hypokalemia: PLAN: Ongoing Continue to replace Magnesium WNL PLAN: Plan Chronic conditions * Spina bifida: Hold off on baclofen for now. 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 VTE prophylaxis: SCDs CODE STATUS: Addressed with the patient. Patient wishes to be DNR Comfort Care arrest no intubation. Charges/Coding Visit Charges Inpatient E&M: 68780 Subs Hosp L2
[2023-05-14 07:33] LABS: Anion Gap 12 (5-15); BUN 3 mg/dL (7-18); BUN/Creat Ratio 9.3 RATIO (10-20); Chloride 102 mmol/L (98-107); Creatinine, Serum 0.32 mg/dL (0.70-1.30); EST Glomerular Filtration Rate 306 mL/min (>60); Est Glom Filt Rate - Afr Amer 370 mL/min (>60); Glucose 82 mg/dL (74-106); Sodium Level 136 mmol/L (136-145)
[2023-05-14 09:43] VITALS: BP 133/83; PULSE 86; RESP 18; TEMP 37.2; O2SAT 96
[2023-05-14] MEDS: Ceftriaxone 1 GM/50 ML BAG IV (09:50)
[2023-05-14] MEDS: Bisacodyl 10 MG Suppository RC (11:21)
[2023-05-14] MEDS: Potassium Chloride 10mEq/100mL 10 MEQ/100 ML IV.SOLN. 100 MEQ IV BOLUS ×4 (13:48→17:11)
[2023-05-14] MEDS: Potassium Chloride Oral Soln 20 MEQ/15 ML UDC 40 MEQ PO (14:53)
[2023-05-14 16:46] VITALS: BP 150/90; PULSE 86; RESP 18; TEMP 37; O2SAT 96
[2023-05-14] MEDS: 0.9% Saline Lock 10 ML Syringe IV (18:12)
[2023-05-14 23:00] VITALS: PULSE 76
[2023-05-15] MEDS: Metoclopramide 10 MG/2 ML Vial 5 MG IV ×5 (00:22→23:45)
[2023-05-15] MEDS: 0.9% Normal Saline 1,000 ML 150 ML IV ×4 (02:35→23:45)
[2023-05-15 05:47] VITALS: BP 146/96; PULSE 88; RESP 16; TEMP 36.3; O2SAT 95
--- NOTE | 2023-05-15 07:08 | PCM.PN.HOSP ---
Reason for Visit Reason for Visit: Diagnoses Hypo-osmolality and hyponatremia (05/09/23) Hypokalemia (05/09/23) Unspecified intestinal obstruction, unspecified as to partial versus complete obstruction (05/09/23) Acute cystitis without hematuria (05/09/23) Benign prostatic hyperplasia with lower urinary tract symptoms (05/09/23) Other retention of urine (05/09/23) Subjective Subjective Tolerating some clears. Some flatus and BMs. Objective Data Objective Data Vital Signs: Vital Signs Temp Pulse Resp BP Pulse Ox O2 Del Method 36.3 C L 88 16 146/96 H 95 Room Air 05/15/23 05:47 05/15/23 05:47 05/15/23 05:47 05/15/23 05:47 05/15/23 05:47 05/15/23 05:47 Oxygen Delivery Method Room Air Weight: 56.245 kg Body Mass Index (BMI) 21.9 Intake & Output: Intake and Output for Last 24 Hours 05/13/23 05/14/23 05/15/23 23:59 23:59 23:59 Intake Total 5292.5 / 5532.5 4630 / 4630 1100 / 1100 Output Total 3250 / 4150 5800 / 7000 2000 / 1999 Balance 2042.5 / 1382.5 -1170 / -2370 -900 / -900 Lab / Micro Data 05/14/23 05:15 05/15/23 06:16 Labs: Laboratory Results - last 24 hr 05/14/23 05:15: Sodium 136, Potassium 3.0 L, Chloride 102, Carbon Dioxide 22.0, Anion Gap 12, BUN 3 L, Creatinine 0.32 L, Estim Creat Clear Calc 207.50, Est GFR (MDRD) Af Amer 370, Est GFR (MDRD) Non-Af 306, BUN/Creatinine Ratio 9.3 L, Glucose 82, Calcium 8.0 L Micro: Microbiology 05/09/23 05:20 Urine Catheter - Bowman Urine Culture - Final Citrobacter freundii Proteus mirabilis Physical Exam Const alert HEENT head/scalp atraumatic and moist oral mucous membranes Resp normal respiratory effort, no retractions, no use of accessory muscles and clear to auscultation bilaterally Cardio regular rate, regular rhythm, S1 normal heart sound and S2 normal heart sound GI GI Narrative: distended, but not taut. high-pitched bowel sounds. Assessment & Plan Assessment/Plan (1) SBO (small bowel obstruction): PLAN: NG tube placed in the emergency room and will continue low intermittent suction N.p.o. Antiemetics 05/09: Discussed with the patient and his sister, that my recommendation is for the patient to be transferred as I do not have surgery available at this institution that would be able to do any management in case he gets worse. I did review through [facility] SBFT from March and xrays at [facility]. If patient does get worse, I told them both that it could be detrimental to his health and even his life. They both expressed understanding. If this is found to be more of a motility issue or ileus, may consider doing gastric emptying study at a later point. SBFT from 05/09 showed incomplete SBO 05/10: KUB performed today, results pending. Started on metoclopramide. 05/11: ileus pattern still present. Treat UTI. Correct electrolytes. Had BMs 05/12: clinically unchanged. hold off on repeat Xray at this time. reattempt suppositories and enema. Clamp NG and observe. 05/13: worse. pt had been declining metoclopramide due to drowsiness. I recommended taking given lack of improvement. ASHLEE pt's sister. Replace suction to NG. NPO. continue reglan. Later in the day, pt had some BMs and flatus. Reclamped NGT and advanced to clear diets. 05/14: ongoing. Add erythromycin. 05/15: no change, but not worse. Remove NGT. Small bites and amounts of food for now. Continue metoclopramide and erythromycin. Consult GI for additional recs (ASHLEE Dr. Friend). I am concerned pt may be at or near his baseline. (2) Chronic hyponatremia: PLAN: Improved w IV fluids. Monitor Suspect due to hypovolemia (3) Urinary tract infection: QUALIFIERS: Hematuria presence: without hematuria Urinary tract infection type: acute cystitis Qualified Code(s): N30.00 - Acute cystitis without hematuria PLAN: GNR On CTX Follow up Cx. (4) BPH (benign prostatic hyperplasia): QUALIFIERS: Lower urinary tract symptom detail: urinary retention Lower urinary tract symptom presence: symptoms present Qualified Code(s): N40.1 - Benign prostatic hyperplasia with lower urinary tract symptoms; R33.8 - Other retention of urine PLAN: CT showed diffuse chronic bladder wall thickening likely 2/2 chronic outlet dysfuntion in settin of large prostate. When able to take PO, start tamsulosin. (5) Hypokalemia: PLAN: Ongoing Continue to replace Magnesium WNL PLAN: Plan Chronic conditions Spina bifida: Hold off on baclofen for now. 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 VTE prophylaxis: SCDs CODE STATUS: Addressed with the patient. Patient wishes to be DNR Comfort Care arrest no intubation. Charges/Coding Visit Charges Inpatient E&M: 26591 Subs Hosp L2
[2023-05-15 07:27] LABS: Anion Gap 8 (5-15); BUN 2 mg/dL (7-18); BUN/Creat Ratio 4.5 RATIO (10-20); Chloride 101 mmol/L (98-107); Creatinine, Serum 0.44 mg/dL (0.70-1.30); EST Glomerular Filtration Rate 212 mL/min (>60); Est Glom Filt Rate - Afr Amer 257 mL/min (>60); Estimated Creatinine Clearance 150.91 ml/min; Glucose 99 mg/dL (74-106); Potassium 3.1 mmol/L (3.5-5.1); Sodium Level 133 mmol/L (136-145)
[2023-05-15 08:38] VITALS: BP 145/81; PULSE 90; RESP 16; TEMP 36.4; O2SAT 96
[2023-05-15] MEDS: Ceftriaxone 1 GM/50 ML BAG IV (11:25)
[2023-05-15] MEDS: Bisacodyl 10 MG Suppository RC (11:25)
[2023-05-15] MEDS: 0.9% Saline Lock 10 ML Syringe IV (11:26)
[2023-05-15] MEDS: Potassium Chloride Oral Soln 20 MEQ/15 ML UDC 40 MEQ PO ×2 (13:22→18:08)
[2023-05-15 16:05] VITALS: BP 148/68; PULSE 88; RESP 16; TEMP 36.5; O2SAT 95
[2023-05-15] MEDS: Tamsulosin HCl 0.4 MG Capsule PO (18:15)
[2023-05-15 21:15] VITALS: BP 151/95; PULSE 88; RESP 16; TEMP 36.6; O2SAT 95
[2023-05-15 21:22] VITALS: O2SAT 96
[2023-05-16 03:15] VITALS: BP 130/82; PULSE 80; RESP 16; TEMP 36.4; O2SAT 97
[2023-05-16] MEDS: Metoclopramide 10 MG/2 ML Vial 5 MG IV ×2 (06:01→12:28)
[2023-05-16] MEDS: 0.9% Normal Saline 1,000 ML 150 ML IV (06:01)
[2023-05-16 07:08] LABS: Anion Gap 5 (5-15); BUN 1 mg/dL (7-18); BUN/Creat Ratio 2.3 RATIO (10-20); Chloride 104 mmol/L (98-107); Creatinine, Serum 0.44 mg/dL (0.70-1.30); EST Glomerular Filtration Rate 213 mL/min (>60); Est Glom Filt Rate - Afr Amer 258 mL/min (>60); Estimated Creatinine Clearance 150.91 ml/min; Glucose 104 mg/dL (74-106); Potassium 3.8 mmol/L (3.5-5.1); Sodium Level 135 mmol/L (136-145)
--- NOTE | 2023-05-16 07:08 | CON.PCM.GI_ITS ---
HPI Consult Data Date of Consult: 05/15/23 HPI Narrative Reason for Consultation: Ileus HPI Narrative: JIAN ALTAMIRANO, is a 57 M who presents with worsening abdominal distention and possible bowel obstruction. He has a past medical history of chronic hyponatremia, hypertension, seizure disorder, gastroparesis and neurogenic bladder, normal pressure hydrocephalus with AUTOMATIC FANCY MACHINE OPERATOR shunt and functional paraplegia. He presented to the [facility] ED owith history of 12-24 hours of progressively worsening abdominal distention, abdominal discomfort rated moderate 4-6 out of 10 in severity, decreased oral intake, decreased urine output and lack of flatus with last bowel movement greater than 24 hours prior with family concern for possible recurrent bowel obstruction . He has presented to hospital for multiple admissions for partial SBO/ileus these episodes have all resolved with NG tube decompression/IV hydration/bowel rest. Patient has had no previous intraabdominal surgeries except has a AUTOMATIC FANCY MACHINE OPERATOR shunt. On this current admission he had a small bowel follow-through that did not show any signs of obstruction. Patient did have multiple bowel movements today. And after talking to nursing they tell me that his sister comes every morning to g selvin him enemas and decompress his bowels. Patient said that he did have liquids this morning and he had a regular lunch. He says that his abdomen feels a lot better. He is gotten multiple treatments including Reglan, erythromycin and PPI therapy on this admission. [facility] Medical History (Updated 05/16/23 @ 07:[address] Kaden Haynes, ) Bladder diverticulum Bladder stones BPH (benign prostatic hyperplasia) Catheter-associated urinary tract infection Chronic indwelling Bowman catheter Gastroparesis History of urinary retention Hydrocephalus Hypertension Hyponatremia Ileus Inguinal hernia Normal pressure hydrocephalus Seizures Home Medications linaclotide 72 mcg capsule (Linzess) 290 mcg PO DAILY constipation 07/31/21 [History Last Taken 02/20/23] baclofen 5 mg tablet 5 mg PO TID spasms 07/21/22 [History Last Taken 02/20/23] Allergy/AdvReac Type Severity Reaction Status Date / Time Iodinated Contrast Media Allergy Anaphylaxis Verified 05/09/23 03:11 [Iodinated Contrast Media - IV Dye] nitrofurantoin AdvReac Upset Verified 05/09/23 03:11 Stomach Family History Father Heart disease Kidney stones Prostate disease Brother Kidney stones Other Cancer Peptic ulcer disease Surgical History S/P release of urethral stricture S/P AUTOMATIC FANCY MACHINE OPERATOR shunt AUTOMATIC FANCY MACHINE OPERATOR (ventriculoperitoneal) shunt status Social History household members: family Smoking Status: Never smoker alcohol intake: never substance use type: does not use ROS ROS Narrative All review of systems were negative except as mentioned above in the history of present illness and the other review of systems. Physical Exam Const alert HEENT head/scalp atraumatic and moist oral mucous membranes Resp normal respiratory effort, no retractions, no use of accessory muscles and clear to auscultation bilaterally Cardio regular rate, regular rhythm, S1 normal heart sound and S2 normal heart sound GI GI Narrative: Nondistended and nontender Lab / Micro Data 05/14/23 05:15 05/16/23 05:55 Labs: Laboratory Results - last 24 hr 05/15/23 06:16: Sodium 133 L, Potassium 3.1 L, Chloride 101, Carbon Dioxide 24.0, Anion Gap 8, BUN 2 L, Creatinine 0.44 L, Estim Creat Clear Calc 150.91, Est GFR (MDRD) Af Amer 257, Est GFR (MDRD) Non-Af 212, BUN/Creatinine Ratio 4.5 L, Glucose 99, Calcium 8.0 L 05/16/23 05:55: Sodium 135 L, Potassium 3.8, Chloride 104, Carbon Dioxide 26.0, Anion Gap 5, BUN 1 L, Creatinine 0.44 L, Estim Creat Clear Calc 150.91, Est GFR (MDRD) Af Amer 258, Est GFR (MDRD) Non-Af 213, BUN/Creatinine Ratio 2.3 L, Glucose 104, Calcium 8.0 L Assessment & Plan Assessment/Plan (1) Chronic intestinal pseudo-obstruction: PLAN: Typically for an acute exacerbation we would stop all medications that can exacerbate his chronic intestinal pseudoobstruction including opioids, calcium channel blockers and all medicines the anticholinergic side effects. Also we give methylnaltrexone at a 0.15 mg/kg dose, along with erythromycin 3 mg/kg every 8 hours for 5 to 7 days and neostigmine 0.5 mg intramuscular. If you give neostigmine IV did not have to be under cardiac monitoring. I would also include metoclopramide 10 mg every 6 hours. Chronically he could be on prucalopride which is a 5-HT 4 receptor agonist that accelerates transit in the stomach, small bowel and colon with pyridostigmine which is a oral form of neostigmine that may be also beneficial. At this time he seems to be doing very well. Therefore you can continue current therapy. Charges/Coding Visit Charges Inpatient E&M: 02198 Init Hosp L3
[2023-05-16] MEDS: Potassium Chloride Oral Soln 20 MEQ/15 ML UDC 40 MEQ PO (08:32)
[2023-05-16] MEDS: Bisacodyl 10 MG Suppository RC (10:17)
[2023-05-16] MEDS: Ceftriaxone 1 GM/50 ML BAG IV (10:18)
[2023-05-16 10:25] VITALS: BP 136/97; PULSE 100; PULSE 95; RESP 18; TEMP 36.7; O2SAT 96
--- NOTE | 2023-05-16 10:48 | DCINST_ITS ---
Discharge Instructions Diet Discharge Diet: No restrictions Activity Discharge Activity: Return to Normal Activity Dressing / Incision Call your doctor if you observe: Fever of 101 or Higher, Shortness of breath, Dizziness, Fainting spells, Swelling in the ankles, Chest pain and Increased palpitations (irregular heartbeat) Follow Up Care Test Results: Test results from this visit will be discussed in further detail at your follow- up appointment, if applicable. Discharge Plan Admission Admit Date/Time: 05/09/23 09:06 Attending Provider: Ace Moncada Primary Care Provider: Lyndon Sanders Consulting Providers: Richard Palacio Instructions Additional Instructions / Restrictions: Have lab work drawn by the home health nurse in 3 to 5 days to monitor your renal function and electrolytes Discharge Orders/Prescriptions Prescriptions: New metoclopramide HCl 5 mg/mL Solution 5 mg IV Q6 30 Days Qty: 120 0RF tamsulosin 0.4 mg Capsule 0.4 mg PO DAILY@1730 30 Days Qty: 30 0RF erythromycin ethylsuccinate [EryPed 200] 200 mg/5 mL Suspension For Reconstitution 100 mg PO TIDAC 30 Days Qty: 225 0RF Continued Linzess 72 mcg capsule 290 mcg PO DAILY Patient Comments: TAKE 1 CAP BY MOUTH ONCE DAILY ON EMPTY STOMACH SWALLOW WHOLE DO NOT CHEW/CRUSH baclofen 5 MG tablet 5 mg PO TID Rx Instructions: Hold for sedation/lethargy Referrals / Follow Up: Kaden Haynes DO [Med Staff - Active Staff] - Within 3 Months Lyndon Sanders MD [Primary Care Provider] - Within 1 Week Disposition Disposition (needs filled in before D/C Order can be placed): Home Health Service
[2023-05-16] MEDS: 0.9% Saline Lock 10 ML Syringe IV (12:29)
--- NOTE | 2023-05-16 13:23 | CASEMGMT ---
Addendum entered by Niesha Goldberg 05/16/23 13:37: [facility] [place] will see pt on Tuesday, Johanna aware of lab draw due in 3-5 days. Original Note: TC to Johanna at [facility] [place], made aware pt is dc'ing today. [facility] to resume.
--- NOTE | 2023-05-16 13:25 | PCM.DC.SUM ---
Providers Date of Admission: 05/09/23 Primary Care Physician: Dr. Lyndon Sanders MD Consultations 05/15/23 12:25 Consult: Gastroenterology Routine Consulting Provider: Estela Gastro[facility] Reason for Consult: Gastroparesis EMERGENT Consult: No MD Notified: Yes Date Notified: 05/15/23 Time Notified: 12:25 Method of Notification: Verbal Reason For Visit: SBO Diagnosis Discharge Diagnosis (1) Chronic intestinal pseudo-obstruction: Status: Acute Code(s): K59.89 - Other specified functional intestinal disorders Medications at Discharge Home Medications linaclotide 72 mcg capsule (Linzess) 290 mcg PO DAILY constipation 07/31/21 baclofen 5 mg tablet 5 mg PO TID spasms 07/21/22 erythromycin ethylsuccinate 200 mg/5 mL oral powder for suspension (EryPed 200) 100 mg (2.5 mL) PO TIDAC 30 days #225 mL 05/16/23 metoclopramide HCl 5 mg tablet (Reglan) 5 mg PO Q6H 30 days #120 tabs 05/16/23 tamsulosin 0.4 mg capsule 0.4 mg PO DAILY@1730 30 days #30 caps 05/16/23 Hospital Course Operations None Procedures None Summary of Care Provided Minutes Spent on Discharge: 36 Hospital Course: Per HPI: JIAN ALTAMIRANO, is a 57 M who presents with worsening abdominal pain and distention. Began around 1 AM. CAT scan performed in the emergency room showed progressive or recurrent distention of small bowel with transition to decompressed bowel in the central pelvis. Concerning for small bowel obstruction. NG tube was placed. ED reached out to [facility] for transfer. They reference the patient had a small bowel follow-through that he had had performed when he was transferred there month ago and showed no small bowel obstruction but was concerning for motility issue. The surgeon there recommended medical admission and conservative management. Patient's sister tells me the patient had not been feeling well for the previous few days but did have flatus and a bowel movement yesterday. She thought that they were through the worst of it until he got worse earlier this morning. Hospital Course: 1. Chronic intestinal pseudoobstruction/spina bifida/hydrocephalus?57-year-old male presented to the hospital with what appeared to be a small bowel obstruction. He was started on NG tube and made n.p.o. This does happen periodically and he is not a great surgical candidate here. He did slowly improve and was placed on erythromycin as well as Reglan which did cause him to start having multiple bowel movements and he was able to tolerate a p.o. diet. Gastroenterology was consulted and felt that he was doing well and recommended Reglan and erythromycin on discharge. He is already on Linzess and does not take any medications other than baclofen for his muscle spasms and can cause constipation. I discussed with him the plan for possible discharge today and he expressed understanding of the risks and benefits of going home and he would like to go home today, he feels much better today than when he came in. I do recommend that he follow-up with his PCP in 3 to 5 days as well as gastroenterology as an outpatient for continued monitoring and management of his GI condition. Physical Exam Narrative General: Alert, Oriented x3, Cooperative, No apparent distress HEENT: Atraumatic, PERRLA, EOMI, Normocephalic Oral: Moist Mucosa Neck: Supple, No JVD Lungs: Diminished, normal air movement, No rhonchi, No wheeze, No rales Cardiovascular: Regular rate, Regular Rhythm, Normal S1, Normal S2, No murmurs Abdomen: Soft, Non Tender, Non-Distended, No Hepato-splenomegaly Extremities: No edema, Capillary Refill Less than 3 Seconds Skin: No rashes, No breakdown Musculoskeletal: No Tenderness to Palpation of Joints or Extremities Neurological: Chronically abnormal due to spina bifida, remains unchanged Psych/Mental Status: Normal Affect, Appropriate Weight / BMI Weight Weight: 124 lb Body Mass Index (BMI) 21.9 ABG / Lab / Microbiology Data 05/14/23 05:15 05/16/23 05:55 Laboratory: Laboratory Results - last 24 hr 05/16/23 05:55: Sodium 135 L, Potassium 3.8, Chloride 104, Carbon Dioxide 26.0, Anion Gap 5, BUN 1 L, Creatinine 0.44 L, Estim Creat Clear Calc 150.91, Est GFR (MDRD) Af Amer 258, Est GFR (MDRD) Non-Af 213, BUN/Creatinine Ratio 2.3 L, Glucose 104, Calcium 8.0 L Microbiology: Microbiology 05/09/23 05:20 Urine Catheter - Bowman Urine Culture - Final Citrobacter freundii Proteus mirabilis D/C Instructions Discharge Diet: No restrictions Call your doctor if you observe: Fever of 101 or Higher, Shortness of breath, Dizziness, Fainting spells, Swelling in the ankles, Chest pain and Increased palpitations (irregular heartbeat) Meaningful Use Info Meaningful Use Diagnoses (Choose all that apply): None applicable Discharge Plan Admission Admit Date/Time: 05/09/23 09:06 Attending Provider: Ace Moncada Primary Care Provider: Lyndon Sanders Consulting Providers: Richard Palacio Instructions Additional Instructions / Restrictions: Have lab work drawn by the home health nurse in 3 to 5 days to monitor your renal function and electrolytes Discharge Orders/Prescriptions Prescriptions: New tamsulosin 0.4 mg Capsule 0.4 mg PO DAILY@1730 30 Days Qty: 30 0RF erythromycin ethylsuccinate [EryPed 200] 200 mg/5 mL Suspension For Reconstitution 100 mg PO TIDAC 30 Days Qty: 225 0RF metoclopramide HCl [Reglan] 5 mg tablet 5 mg PO Q6H 30 Days Qty: 120 0RF Continued Linzess 72 mcg capsule 290 mcg PO DAILY Patient Comments: TAKE 1 CAP BY MOUTH ONCE DAILY ON EMPTY STOMACH SWALLOW WHOLE DO NOT CHEW/CRUSH baclofen 5 MG tablet 5 mg PO TID Rx Instructions: Hold for sedation/lethargy Referrals / Follow Up: Kaden Haynes DO [Med Staff - Active Staff] - 09/30/23 3:15 pm Lyndon Sanders MD [Primary Care Provider] - 05/20/23 2:20 pm Disposition Disposition (needs filled in before D/C Order can be placed): Home Health Service Charges/Coding Visit Charges Inpatient E&M: 41608 Disch Hosp >30min
== END 2023-05-16 13:54 | disposition home health service (06) | DRG 392 ==
LOC: ED 07:51 → MS3 11:43
PROVIDERS: Emergency Provider Emergency Medicine; PCP Family Medicine; Visit Provider Family Medicine
DX: K59.89 Other specified functional intestinal disorders (principal); E87.1 Hypo-osmolality and hyponatremia; G91.2 (Idiopathic) normal pressure hydrocephalus; T83.511A Infection and inflammatory reaction due to indwelling urethral catheter, initial encounter; N30.00 Acute cystitis without hematuria; I10 Essential (primary) hypertension; E86.1 Hypovolemia; E87.6 Hypokalemia; X58.XXXA Exposure to other specified factors, initial encounter; B96.4 Proteus (mirabilis) (morganii) as the cause of diseases classified elsewhere; B96.89 Other specified bacterial agents as the cause of diseases classified elsewhere; N40.1 Benign prostatic hyperplasia with lower urinary tract symptoms; R33.8 Other retention of urine; Z66 Do not resuscitate; Z98.2 Presence of cerebrospinal fluid drainage device; Z79.899 Other long term (current) drug therapy
CPT/HCPCS: 36415; 74018; 74176; 74250; 80048; 80076; 81001; 83605; 83690; 83735; 85025; 87077; 87086; 87088; 87186; 97802; 99285; J7030; A4216; J2405

== ENCOUNTER 2023-08-09 00:17 | Inpatient (IN) | payer MEDICARE, MEDICAID, SELFPAY ==
[2023-08-09] VITALS (9 sets, daily range): BP systolic 123–139; BP diastolic 82–107; PULSE 66–110; RESP 16–20; TEMP 36.3–37.1; O2SAT 95–98; BMI 22.1
--- NOTE | 2023-08-09 00:36 | CT_ITS ---
INDICATION: abd pain EXAMINATION: CT ABDOMEN AND PELVIS WITHOUT CONTRAST - CT Abdomen And Pelvis W/O Contrast Injection TECHNIQUE: Helically acquired images were obtained of the abdomen and pelvis without oral or IV contrast. A radiation dose optimization technique was used for this scan. IV Contrast dosage and agent: None. Oral contrast: None. RADIATION DOSAGE (If Supplied By Facility): CTDIvol = ( 7.22 ) mGy, DLP = ( 501.77 ) mGycm COMPARISON: Prior study dated: 05/09/2023 FINDINGS: LOWER CHEST: Lung bases are clear. No cardiomegaly or pericardial effusion. LIVER: The liver is normal in size, shape, and attenuation. No focal mass. GALLBLADDER AND BILIARY TREE: The gallbladder is normally distended. No gallstones. No gallbladder wall thickening or edema. No intra- or extrahepatic biliary ductal dilation. PANCREAS: No focal cystic or solid mass. SPLEEN: Normal size without focal cystic or solid mass. ADRENAL GLANDS: No nodules. KIDNEYS AND URETERS: Normal renal size and position. No hydronephrosis. Simple left lower pole renal cyst. No specific follow-up recommended. Left upper pole 0.5 cm calculus is 4 cm from the posterior axillary line. PERITONEUM: No ascites or free air. No other fluid collection. BOWEL: Significantly distended stomach. No wall thickening. The small bowel is fluid-filled and dilated as well. This is similar to previous imaging, with transition to decompressed small bowel in the region of the pelvis/right lower quadrant. Shunt tubing extends into the pelvis. LYMPH NODES: No enlarged mesenteric or retroperitoneal lymph nodes. VESSELS: Aorta is non-dilated. URINARY BLADDER: Bowman catheter in the bladder. Prominent diverticulum at the posterior right aspect of the bladder wall with additional left diverticulum extending into a left inguinal hernia. The diverticula have internal calculi, as well as layering calcification in the bladder lumen. REPRODUCTIVE ORGANS: No pelvic masses. ABDOMINAL WALL: Bilateral inguinal hernias, with the left-sided hernia containing a bladder diverticulum. BONES: No acute or suspicious osseous abnormality. Degenerative change throughout the spine. Chronic left hip dislocation. Associated pseudoarthrosis of the pelvis. CT/Abdomen/Pelvis without Cont IMPRESSION: Multiple chronic changes. Significant distention of the stomach and proximal small bowel with distal transition, suggestive of a small bowel obstruction. This appearance is similar to prior imaging. Bladder with prominent diverticula. Multiple bladder calcifications. Left-sided diverticulum enters into the left inguinal hernia. Left-sided renal calculus. No hydronephrosis. Chronic left hip dislocation. Electronically Signed: Roscoe Sinha MD at 1:47 EDT ,
[2023-08-09] MEDS: 0.9% Normal Saline (1000mL) 1,000 ML 999 ML IV (01:03)
[2023-08-09] MEDS: Ondansetron 4 MG/2 ML Vial IV ×2 (01:03→12:59)
[2023-08-09 01:05] LABS: Absolute Lymphocyte Count 1.15 X10^3/uL (0.83-4.51); Basophil# 0.04 X10^3/uL; Basophil% 0.3 % (0-1); Eosinophil# 0.02 X10^3/uL; Eosinophils% 0.1 % (0-5); Hematocrit 45.5 % (40-54); Hemoglobin 15.8 g/dL (13.0-16.5); Lymphocyte # 1.15 X10^3/ul (0.83-4.51); Lymphocyte % 7.5 % (19-41); Mean Corp Hgb Conc 34.7 g/dL (32-36); Mean Corpuscular Hgb 29.9 pg (27.0-32.0); Mean Corpuscular Volume 86.2 fL (80-94); Mean Platelet Vol. 9.5 fl (6.2-12.0); Monocyte% 7.2 % (0-10); NRBC Flagged by Analyzer 0 % (0-5); Neutrophil # 12.98 X10^3/uL (2.7-7.7); Neutrophil % 84.5 % (47-70); Platelet Count 522 K/mm3 (150-450); RBC Distribution Width CV 12.5 % (11.6-14.6); RBC Distribution Width SD 39.1 fl (35.1-43.9); Red Blood Count 5.28 M/mm3 (4.6-6.2); White Blood Count 15.4 K/mm3 (4.4-11.0)
[2023-08-09 01:23] LABS: AST(SGOT) 15 U/L (15-37); Alanine Aminotransfer ALT/SGPT 19 U/L (16-61); Albumin, Serum 3.6 g/dL (3.2-5.0); Alkaline Phosphatase 84 U/L (45-117); Anion Gap 8 (5-15); BUN 15 mg/dL (7-18); BUN/Creat Ratio 16.9 RATIO (10-20); Bilirubin, Direct 0.16 mg/dL (0.00-0.30); Calcium,Total 9.2 mg/dL (8.5-10.1); Chloride 92 mmol/L (98-107); Creatinine, Serum 0.89 mg/dL (0.70-1.30); EST Glomerular Filtration Rate 94 mL/min (>60); Est Glom Filt Rate - Afr Amer 114 mL/min (>60); Estimated Creatinine Clearance 75.21 ml/min; Globulin 4.7 g/dL (2.2-4.2); Glucose 168 mg/dL (74-106); Lipase 22 U/L (13-75); Potassium 4.1 mmol/L (3.5-5.1); Protein, Total 8.3 g/dL (6.4-8.2); Sodium Level 127 mmol/L (136-145)
--- NOTE | 2023-08-09 01:52 | RAD_ITS ---
INDICATION: NG Insertion EXAMINATION/TECHNIQUE: X-RAY - upright XR Abdomen 1 View COMPARISON: Prior study dated: CT 08/09/2023 FINDINGS: BOWEL GAS PATTERN: Dilated appearance of bowel in the upper abdomen. Enteric tube terminates in the stomach in good position. FREE AIR: No gross evidence of free air, although evaluation is limited due to the gas-filled appearance of the bowel/stomach. ORGANOMEGALY: Not seen. CALCIFICATIONS: No abnormal calcifications observed. LOWER CHEST: No acute pathology. BONES AND SOFT TISSUES: No acute pathology. RAD/Abdomen Single View (Portable) IMPRESSION: Enteric tube terminating in the stomach. Dilated bowel in the upper abdomen. Electronically Signed: Roscoe Sinha MD at 2:42 EDT ,
[2023-08-09] MEDS: Piperacil/Tazobactam 3.375 GM in 0.9% Normal Saline (50mL MB+) 50 ML IV (03:17)
--- NOTE | 2023-08-09 03:38 | EX.ED.DYSGE1 ---
HPI History of Present Illness Chief Complaint: Nausea/Vomiting Informant: patient and family Narrative Narrative: Patient is a 57-year-old male with past medical history of hydrocephalus having a [employer] shunt placed shortly after . He has paraplegia secondary to this. He also has a history of recurrent small bowel obstructions and a chronic indwelling Bowman cath. Patient and his sister who he stays with states that he was doing well but this evening approximately 2 hours prior to arrival began with increasing upper abdominal pain and bouts of vomiting. They deny any fever but with his history of SBO and now sudden onset of vomiting there is concern for this and he was brought in for evaluation [facility] Medical History Bladder diverticulum Bladder stones BPH (benign prostatic hyperplasia) Catheter-associated urinary tract infection Chronic hyponatremia Chronic indwelling Bowman catheter Chronic intestinal pseudo-obstruction Gastroparesis History of urinary retention Hydrocephalus Hypertension Hyponatremia Ileus Inguinal hernia Normal pressure hydrocephalus Seizures Home Medications linaclotide 72 mcg capsule (Linzess) 290 mcg PO DAILY constipation 07/31/21 [History Last Taken 02/20/23] baclofen 5 mg tablet 5 mg PO TID spasms 07/21/22 [History Last Taken 02/20/23] erythromycin ethylsuccinate 200 mg/5 mL oral powder for suspension (EryPed 200) 100 mg (2.5 mL) PO TIDAC 30 days #225 mL 05/16/23 [Rx Last Taken Unknown] metoclopramide HCl 5 mg tablet (Reglan) 5 mg PO Q6H 30 days #120 tabs 05/16/23 [Rx Last Taken Unknown] tamsulosin 0.4 mg capsule 0.4 mg PO DAILY@1730 30 days #30 caps 05/16/23 [Rx Last Taken Unknown] Allergy/AdvReac Type Severity Reaction Status Date / Time Iodinated Contrast Media Allergy Anaphylaxis Verified 05/09/23 03:11 [Iodinated Contrast Media - IV Dye] nitrofurantoin AdvReac Upset Verified 05/09/23 03:11 Stomach Family History Father Heart disease Kidney stones Prostate disease Brother Kidney stones Other Cancer Peptic ulcer disease Surgical History S/P release of urethral stricture S/P [employer] shunt [employer] (ventriculoperitoneal) shunt status Social History household members: family Smoking Status: Never smoker alcohol intake: never substance use type: does not use ROS ROS ED Constitutional Constitutional ED: Denies chills or fever(s) ENT ENT ED: Denies sore throat Cardiovascular Cardiovascular: Denies chest pain Respiratory/Chest Respiratory/Chest: Denies cough or dyspnea Gastrointestinal Gastrointestinal: Reports abdominal pain, nausea and vomiting; Denies diarrhea Integumentary Denies rash Neurologic Neurologic: Denies headache(s) Hematologic/Lymphatic Hematologic/Lymphatic: Denies easy bleeding or easy bruising EXAM Physical Exam Const Vital Signs: 08/09/23 00:18 08/09/23 02:17 Temperature 98.5 F Temperature Source Temporal Pulse Rate 110 H Respiratory Rate 16 20 H Blood Pressure 137/107 H Blood Pressure Mean 117 Pulse Ox 97 Oxygen Delivery Method Room Air Positive well nourished and well developed General Appearance ED: well developed HEENT Reports moist mucous membranes HEENT Narrative: No airway edema or compromise No secondary changes of the posterior pharynx to suggest infection Eyes PERRL and EOMs intact bilaterally General Eye ED: Negative for scleral icterus Neck supple Neck Narrative: No nuchal rigidity or meningeal signs noted Resp normal respiratory effort and clear to auscultation bilaterally Resp Narrative: Breath sounds are diminished throughout but overall clear to auscultation without nasal flaring retractions tachypnea or accessory muscle use Cardio regular rhythm Rate: tachycardic and other Other Details: Slightly tachycardic heart rate with regular rhythm. Radial and carotid pulses are equal and symmetric GI GI Narrative: Abdomen is distended with hypoactive bowel sounds. There is pain on palpation in the upper abdomen and there is increased tympany at the site. Auscultation: hypoactive bowel sounds Narrative: Patient has a chronic indwelling Bowman catheter Extremity Extremity Narrative: Patient has chronic changes to his arms and legs secondary to his history of hydrocephalus Neuro oriented x3 and CN's II-XII intact bilaterally Sensorium / Orientation: alert Psych mental status grossly normal Skin no rashes or lesions noted General Skin Exam: Negative for jaundice MDM MDM MDM Narrative Medical decision making narrative: Patient presented to the ER hypertensive and slightly tachycardic but afebrile. He has a history of recurrent small bowel obstructions and his exam with distention and hypoactive bowel sounds and increased tympany does correlate with this. Differential diagnosis is for SBO versus ileus versus gastroenteritis. A CT scan without contrast was obtained as patient has a allergy to contrast dye. This confirmed dilated stomach and small bowel obstruction with transition point. Therefore a NG tube was placed to decompress the bowel. His white count is elevated at 15.4 which could be secondary to developing infection or stress response from the SBO as he does have history of [employer] shunt antibiotics were started. The patient does have hyponatremia at 127 which he has been at before but is below his most recent values. Case was discussed with general surgery on-call/Dr. Centeno who agrees with NG tube placement but states because of the [employer] shunt if he did require surgery we cannot perform here and therefore recommends transfer. Family request [facility] and therefore they were contacted and the case was discussed with general surgeon Dr. Brice. He agrees except the patient at this time. Patient and sister were informed of the acceptance and at this time patient remains hemodynamically stable while awaiting transfer to [facility] History & Record Review Discussion w/independent historian: Patient and Family Lab Data Attestation: I reviewed the patient's lab results. Labs: Laboratory Results - last 24 hr 08/09/23 00:59 WBC 15.4 H RBC 5.28 Hgb 15.8 Hct 45.5 MCV 86.2 MCH 29.9 MCHC 34.7 RDW Std Deviation 39.1 RDW Coeff of Frieda 12.5 Plt Count 522 H MPV 9.5 Immature Gran % (Auto) 0.400 Neut % (Auto) 84.5 H Lymph % (Auto) 7.5 L [place] % (Auto) 7.2 Eos % (Auto) 0.1 Baso % (Auto) 0.3 Absolute Neuts (auto) 13.0 H Absolute Lymphs (auto) 1.15 Nucleated RBC % 0 Sodium 127 L Potassium 4.1 Chloride 92 L Carbon Dioxide 27.0 Anion Gap 8 BUN 15 Creatinine 0.89 Estim Creat Clear Calc 75.21 Est GFR (MDRD) Af Amer 114 Est GFR (MDRD) Non-Af 94 BUN/Creatinine Ratio 16.9 Glucose 168 H Lactic Acid 1.0 Calcium 9.2 Total Bilirubin 0.50 Direct Bilirubin 0.16 AST 15 ALT 19 Alkaline Phosphatase 84 Total Protein 8.3 H Albumin 3.6 Globulin 4.7 H Lipase 22 Radiography Diagnostic Testing: Clinical Impression(s) from Imaging Studies Abdomen/Pelvis CT 08/09/23 00:36 IMPRESSION: Multiple chronic changes. Significant distention of the stomach and proximal small bowel with distal transition, suggestive of a small bowel obstruction. This appearance is similar to prior imaging. Bladder with prominent diverticula. Multiple bladder calcifications. Left-sided diverticulum enters into the left inguinal hernia. Left-sided renal calculus. No hydronephrosis. Chronic left hip dislocation. Electronically Signed: Roscoe Sinha MD at 1:47 EDT , KUB X-Ray 08/09/23 01:52 IMPRESSION: Enteric tube terminating in the stomach. Dilated bowel in the upper abdomen. Electronically Signed: Roscoe Sinha MD at 2:42 EDT , KUB is interpreted by the emergency medicine physician reveals the nasogastric tube terminating within the stomach and persistent dilated loops of bowel consistent with SBO Management Discussion w/another healthcare provider: Emergency Medicine Physician and Other Discharge Plan Triage Chief Complaint: Nausea/Vomiting ED Provider: Abdirahman Jones Dx/Rx/DC Orders Clinical Impression: Small bowel obstruction, Chronic indwelling Bowman catheter, Hyponatremia, Hydrocephalus Prescriptions: No Action Linzess 72 mcg capsule 290 mcg PO DAILY Patient Comments: TAKE 1 CAP BY MOUTH ONCE DAILY ON EMPTY STOMACH SWALLOW WHOLE DO NOT CHEW/CRUSH baclofen 5 MG tablet 5 mg PO TID Rx Instructions: Hold for sedation/lethargy tamsulosin 0.4 mg Capsule 0.4 mg PO DAILY@1730 30 Days Qty: 30 0RF erythromycin ethylsuccinate [EryPed 200] 200 mg/5 mL Suspension For Reconstitution 100 mg PO TIDAC 30 Days Qty: 225 0RF metoclopramide HCl [Reglan] 5 mg tablet 5 mg PO Q6H 30 Days Qty: 120 0RF Primary Care Provider: Lyndon Sanders Referrals: Lyndon Sanders MD [Primary Care Provider] - Disposition Disposition: Acute Care Hospital Discharge Location: [facility]
[2023-08-09] MEDS: 0.9% Normal Saline (1000mL) 1,000 ML 200 ML IV (05:28)
[2023-08-09] MEDS: Morphine 4 MG/ML Syringe IV (12:59)
--- NOTE | 2023-08-09 14:36 | HP.PCM.HOS_ITS ---
[facility] General Date of Admission: 08/09/23 Date of Service: 08/09/23 Chief Complaint: abdominal pain HPI Narrative JIAN ALTAMIRANO, is a 57 M who presents with abdominal pain. Patient was having vomiting abdominal distention. Patient has had similar but this was more severe, according to his sister at bedside. Patient presents to the emergency room and was noted to have significant distention of the stomach and proximal small bowel with distal transition, suggestive of a small bowel obstruction. An NG tube was placed in the emergency room the patient had copious amounts of green bilious fluid suctioned. Dr. Grant, general surgery, was contacted and would not feel comfortable managing this patient given his history of P[employer]IATRY PROFESSOR shunt. Requested transfer to tertiary facility. [facility] was contacted and the patient was excepted, however no readily available beds. Patient was emergency room for roughly 6 hours and the hospitalist service was contacted. I requested them to reach out to [facility] but no available at this time. Patient is to be brought into the hospital with his abdominal issues which may be a small bowel obstruction or an ileus with right surgical availability. If condition worsens. Patient will remain here until he can be safely transferred to a tertiary facility for unless he gets better. [facility] Medical History Bladder diverticulum Bladder stones BPH (benign prostatic hyperplasia) Catheter-associated urinary tract infection Chronic hyponatremia Chronic indwelling Bowman catheter Chronic intestinal pseudo-obstruction Gastroparesis History of urinary retention Hydrocephalus Hypertension Hyponatremia Ileus Inguinal hernia Normal pressure hydrocephalus Seizures Home Medications baclofen 5 mg tablet 5 mg PO TID MUSCLE SPASMS 07/21/22 [History Last Taken 02/20/23] metoclopramide HCl 5 mg tablet (Reglan) 5 mg PO Q6H 30 days #120 tabs 05/16/23 [Rx Last Taken Unknown] linaclotide 290 mcg capsule (Linzess) 290 mcg PO DAILY IRRITABLE BOWELS 08/09/23 [History Last Taken Unknown] omeprazole 20 mg capsule,delayed release 20 mg PO DAILY ACID REFLUX 08/09/23 [History Last Taken Unknown] prucalopride 2 mg tablet (Motegrity) 2 mg PO DAILY CHRONIC CONSTIPATION 08/09/23 [History Last Taken Unknown] tamsulosin 0.4 mg capsule 0.4 mg PO 1730 PROSTATE 08/09/23 [History Last Taken Unknown] Allergy/AdvReac Type Severity Reaction Status Date / Time Iodinated Contrast Media Allergy Anaphylaxis Verified 05/09/23 03:11 [Iodinated Contrast Media - IV Dye] nitrofurantoin AdvReac Upset Verified 05/09/23 03:11 Stomach Family History Father Heart disease Kidney stones Prostate disease Brother Kidney stones Other Cancer Peptic ulcer disease Surgical History S/P release of urethral stricture S/P PODIATRY PROFESSOR shunt PODIATRY PROFESSOR (ventriculoperitoneal) shunt status Social History household members: family Smoking Status: Never smoker alcohol intake: never substance use type: does not use ROS ROS Narrative Feeling much better after the ET tube was placed. All review of systems were negative except as mentioned above in the history of present illness and the other review of systems. Vital Signs Vital Signs Vital Signs: 08/09/23 00:18 08/09/23 02:17 08/09/23 04:00 Temperature 36.9 C Temperature Source Temporal Pulse Rate 110 H Respiratory Rate 16 20 H 18 Blood Pressure 137/107 H Blood Pressure Mean 117 Pulse Ox 97 Oxygen Delivery Method Room Air 08/09/23 08:20 08/09/23 11:00 08/09/23 12:55 Temperature 36.3 C L Temperature Source Oral Pulse Rate 89 66 90 Respiratory Rate 16 16 16 Blood Pressure 126/82 H 138/90 H 139/102 H Blood Pressure Mean 96 106 114 Pulse Ox 98 95 95 Oxygen Delivery Method Room Air Room Air Room Air Weight Weight: 56.699 kg Body Mass Index (BMI) 22.1 Physical Exam Const alert and no apparent distress Constitutional Narrative: NG tube in place HEENT normocephalic and head/scalp atraumatic Resp normal respiratory effort, no retractions, no use of accessory muscles and clear to auscultation bilaterally Cardio regular rate, regular rhythm, S1 normal heart sound and S2 normal heart sound GI normal to inspection, nondistended, normoactive bowel sounds, soft to palpation, non-tender and non-distended Extremity normal to inspection Neuro Sensorium / Orientation: awake and alert Results Lab / Micro Data 08/09/23 00:59 08/09/23 00:59 Labs: Laboratory Results - last 24 hr 08/09/23 00:59: WBC 15.4 H, RBC 5.28, Hgb 15.8, Hct 45.5, MCV 86.2, MCH 29.9, MC HC 34.7, RDW Std Deviation 39.1, RDW Coeff of Frieda 12.5, Plt Count 522 H, MPV 9.5, Immature Gran % (Auto) 0.400, Neut % (Auto) 84.5 H, Lymph % (Auto) 7.5 L, Maverick % (Auto) 7.2, Eos % (Auto) 0.1, Baso % (Auto) 0.3, Absolute Neuts (auto) 13.0 H, Absolute Lymphs (auto) 1.15, Nucleated RBC % 0, Sodium 127 L, Potassium 4.1, Chloride 92 L, Carbon Dioxide 27.0, Anion Gap 8, BUN 15, Creatinine 0.89, Estim Creat Clear Calc 75.21, Est GFR (MDRD) Af Amer 114, Est GFR (MDRD) Non-Af 94, BUN/Creatinine Ratio 16.9, Glucose 168 H, Lactic Acid 1.0, Calcium 9.2, Total Bilirubin 0.50, Direct Bilirubin 0.16, AST 15, ALT 19, Alkaline Phosphatase 84, Total Protein 8.3 H, Albumin 3.6, Globulin 4.7 H, Lipase 22 Radiology Impression Abdomen/Pelvis CT 08/09/23 00:36 IMPRESSION: Multiple chronic changes. Significant distention of the stomach and proximal small bowel with distal transition, suggestive of a small bowel obstruction. This appearance is similar to prior imaging. Bladder with prominent diverticula. Multiple bladder calcifications. Left-sided diverticulum enters into the left inguinal hernia. Left-sided renal calculus. No hydronephrosis. Chronic left hip dislocation. Electronically Signed: Roscoe Sinha MD at 1:47 EDT , KUB X-Ray 08/09/23 01:52 IMPRESSION: Enteric tube terminating in the stomach. Dilated bowel in the upper abdomen. Electronically Signed: Roscoe Sinha MD at 2:42 EDT , Assessment & Plan Assessment/Plan (1) Small bowel obstruction: PLAN: Versus ileus. Patient has had similar presentations. Unclear as to which this is at this time. Continue with NG tube to low intermittent suction. IV fluids, antiemetics, nonnarcotic analgesia. Metoclopramide, scheduled. Patient does get better we can manage him here by clamping NG tube and assessing his overall response. If he does not get better or certainly if he gets worse, patient still waiting on transfer to the [facility]. (2) Leukocytosis: QUALIFIERS: Leukocytosis type: unspecified Qualified Code(s): D72.829 - Elevated white blood cell count, unspecified PLAN: Suspect reactive due to small bowel obstruction or ileus Monitor (3) Hyponatremia: PLAN: May be due to hypovolemia. Continue with IV fluids and monitor PLAN: Plan Chronic conditions * BPH: Hold tamsulosin for now * Spina bifida: Hold baclofen. * Status post PODIATRY PROFESSOR shunt: No active issues. Concern for infection at this time, however, who presents precludes her surgery managing this patient here. VTE prophylaxis: SCDs CODE STATUS: Addressed with the patient's sister at bedside. DNR Comfort Care arrest no intubation.. Charges/Coding Visit Charges Inpatient E&M: 22209 Init Hosp L3
[2023-08-09] MEDS: 0.9% Normal Saline (1000mL) 1,000 ML 150 ML IV ×2 (16:02→22:31)
[2023-08-09] MEDS: 0.9% Saline Lock 10 ML Syringe IV (16:02)
[2023-08-09] MEDS: Metoclopramide 10 MG/2 ML Vial 5 MG IV (17:24)
[2023-08-10] MEDS: Metoclopramide 10 MG/2 ML Vial 5 MG IV ×4 (00:59→17:38)
[2023-08-10 02:27] VITALS: BP 105/73; PULSE 94; RESP 18; TEMP 37.1; O2SAT 96
[2023-08-10] MEDS: 0.9% Normal Saline (1000mL) 1,000 ML 150 ML IV ×3 (05:06→18:33)
[2023-08-10 06:33] LABS: Absolute Lymphocyte Count 1.41 X10^3/uL (0.83-4.51); Absolute Neutrophil Count 5.5 X10^3/uL (2.0-7.7); Basophil# 0.03 X10^3/uL; Basophil% 0.4 % (0-1); Eosinophil# 0.04 X10^3/uL; Eosinophils% 0.5 % (0-5); Hematocrit 34.1 % (40-54); Hemoglobin 11.6 g/dL (13.0-16.5); Lymphocyte # 1.41 X10^3/ul (0.83-4.51); Lymphocyte % 17.1 % (19-41); Mean Corpuscular Hgb 30.1 pg (27.0-32.0); Mean Corpuscular Volume 88.6 fL (80-94); Mean Platelet Vol. 9.7 fl (6.2-12.0); Monocyte# 1.31 X10^3/uL; Monocyte% 15.9 % (0-10); NRBC Flagged by Analyzer 0 % (0-5); Neutrophil # 5.45 X10^3/uL (2.7-7.7); Neutrophil % 65.9 % (47-70); Platelet Count 367 K/mm3 (150-450); RBC Distribution Width CV 12.8 % (11.6-14.6); RBC Distribution Width SD 41.5 fl (35.1-43.9); Red Blood Count 3.85 M/mm3 (4.6-6.2); White Blood Count 8.3 K/mm3 (4.4-11.0)
[2023-08-10 07:04] LABS: ALB/GLOB Ratio 0.8 RATIO (0.9-2.4); AST(SGOT) 5 U/L (15-37); Alanine Aminotransfer ALT/SGPT 13 U/L (16-61); Albumin, Serum 2.6 g/dL (3.2-5.0); Alkaline Phosphatase 57 U/L (45-117); Anion Gap 5 (5-15); BUN 11 mg/dL (7-18); BUN/Creat Ratio 17.3 RATIO (10-20); Calcium,Total 7.8 mg/dL (8.5-10.1); Chloride 105 mmol/L (98-107); Creatinine, Serum 0.64 mg/dL (0.70-1.30); EST Glomerular Filtration Rate 138 mL/min (>60); Est Glom Filt Rate - Afr Amer 168 mL/min (>60); Estimated Creatinine Clearance 104.59 ml/min; Globulin 3.4 g/dL (2.2-4.2); Glucose 96 mg/dL (74-106); Potassium 3.5 mmol/L (3.5-5.1); Sodium Level 137 mmol/L (136-145)
--- NOTE | 2023-08-10 08:31 | PCM.PN.HOSP ---
Reason for Visit Reason for Visit: Diagnoses Elevated white blood cell count, unspecified (08/09/23) Hypo-osmolality and hyponatremia (08/09/23) Unspecified intestinal obstruction, unspecified as to partial versus complete obstruction (08/09/23) Subjective Subjective Still with abdominal pain. No BM nor flatus. Objective Data Objective Data Vital Signs: Vital Signs Temp Pulse Resp BP Pulse Ox O2 Del Method 37.1 C 94 18 105/73 96 Room Air 08/10/23 02:08/10/23 02:08/10/23 02:27 08/10/23 02:08/10/23 02:08/10/23 02:27 Oxygen Delivery Method Room Air Weight: 56.699 kg Body Mass Index (BMI) 22.1 Intake & Output: Intake and Output for Last 24 Hours 08/08/23 08/09/23 08/10/23 23:59 23:59 23:59 Intake Total 3102.5 / 3102.5 1047.5 / 1047.5 Output Total 1050 / 1050 1550 / 1550 Balance 2052.5 / 2052.5 -502.5 / -502.5 Lab / Micro Data 08/10/23 06:09 08/10/23 06:09 Labs: Laboratory Results - last 24 hr 08/10/23 06:09: WBC 8.3, RBC 3.85 L, Hgb 11.6 L, Hct 34.1 L, MCV 88.6, MCH 30.1, MCHC 34.0, RDW Std Deviation 41.5, RDW Coeff of Frieda 12.8, Plt Count 367, MPV 9.7, Immature Gran % (Auto) 0.200, Neut % (Auto) 65.9, Lymph % (Auto) 17.1 L, Mcintosh % (Auto) 15.9 H, Eos % (Auto) 0.5, Baso % (Auto) 0.4, Absolute Neuts (auto) 5.5, Absolute Lymphs (auto) 1.41, Nucleated RBC % 0, Sodium 137, Potassium 3.5, Chloride 105, Carbon Dioxide 27.0, Anion Gap 5, BUN 11, Creatinine 0.64 L, Estim Creat Clear Calc 104.59, Est GFR (MDRD) Af Amer 168, Est GFR (MDRD) Non-Af 138, BUN/Creatinine Ratio 17.3, Glucose 96, Calcium 7.8 L, Total Bilirubin 0.60, AST 5 L, ALT 13 L, Alkaline Phosphatase 57, Total Protein 6.0 L, Albumin 2.6 L, Globulin 3.4, Albumin/Globulin Ratio 0.8 L Physical Exam Const alert and no apparent distress Resp normal respiratory effort, no retractions, no use of accessory muscles and clear to auscultation bilaterally Cardio regular rate, regular rhythm, S1 normal heart sound and S2 normal heart sound GI GI Narrative: soft, NT, ND. copious bilious fluid from NGT. Assessment & Plan Assessment/Plan (1) Small bowel obstruction: PLAN: Versus ileus. Patient has had similar presentations. Unclear as to which this is at this time. Continue with NG tube to low intermittent suction. IV fluids, antiemetics, nonnarcotic analgesia. Metoclopramide, scheduled. Patient does get better we can manage him here by clamping NG tube and assessing his overall response. If he does not get better or certainly if he gets worse, patient still waiting on transfer to the [facility]. (2) Leukocytosis: QUALIFIERS: Leukocytosis type: unspecified Qualified Code(s): D72.829 - Elevated white blood cell count, unspecified PLAN: Resovled Suspect reactive due to small bowel obstruction or ileus Monitor (3) Hyponatremia: PLAN: Resolved May be due to hypovolemia. Continue with IV fluids and monitor PLAN: Plan Chronic conditions BPH: Hold tamsulosin for now Spina bifida: Hold baclofen. Status post FOLD SKIVER shunt: No active issues. Concern for infection at this time, however, who presents precludes her surgery managing this patient here. VTE prophylaxis: SCDs CODE STATUS: Addressed with the patient's sister at bedside. DNR Comfort Care arrest no intubation.. Charges/Coding Visit Charges Inpatient E&M: 24438 Subs Hosp L2
[2023-08-10 09:28] VITALS: BP 115/76; PULSE 91; RESP 18; TEMP 36.9; O2SAT 95
--- NOTE | 2023-08-10 10:20 | CASEMGMT ---
NEIL EATON Assessment: Face to Face with pt for initial transition planning/care coordination assessment. NEIL EATON introduced self and role at [facility], pt voices understanding and consents to assessment. Pt is A/O x3 and answers all questions appropriately at this time. Pt lying in bed with NG in in no distress. Care providers, pharmacy, and demographics verified/updated. Admitting Dx: SBO PCP:Tommy Specialists:Kimberlyn, neuro and uro at [facility] Preferred Pharmacy: [facility] Insurance: [place] Prescription Benefit: yes LNOK: Yakelin Bansal, sister; Isadora Fuentes, sister Living Arrangements: Pt lives in a two story home with a ramp to enter. Pt uses the main level. Pt has his sisters or sister's sig other present with him at all times. Pt reports family provides all ADL/IADL's. Pt denies concerns at home. Transportation: Pt sister Yakelin provides transportation to medical appts. DME/HHC/SNF: Pt has a 3 prong malagasy crab cane, crutches, walker, w/c, grab bars, BSC and raised toilet seat. Pt is active with [facility] for SN for cath changes and would like them to return upon dc. Pt denies need for list of other agencies to chose from. Pt denies SNF stays. Notified [facility] that pt would like to resume services and possibility of trf to [facility], left message on Lety's vm. Pt states no further concerns/needs. CM to follow. Advised pt to ask CM if any further question/concerns/needs arise, voices understanding. Pt Goal: Home with [facility] to resume unless trf'd to [facility] Plan: Home with [facility] to resume unless trf'd to [facility]
[2023-08-10 14:15] VITALS: BP 130/87; PULSE 98; RESP 18; TEMP 37.2; O2SAT 98
--- NOTE | 2023-08-10 14:54 | CHAPLAIN ---
Type of Pastoral Visit _x__ Initial Visit ___ Follow-up Visit ___ On-call Visit ___ General Patient Visit ___ Spiritual Assessment ___ Family Conference ___ Bereavement ___ Rapid Response ___ Code Blue ___ Other (describe below) Pastoral Care Referral From _x__ Patient ___ Family ___ Nurse ___ Physician ___ Electric Meter Repairer Apprentice ___ Supervisor Cutting And Boning ___ Other (describe below) Sacrament/Intervention _x__ Active listening ___ Anointing ___ Gnosticism ___ Bereavement ___ Communion ___ Liset exploration ___ ___ Life review _x__ Prayer ___ Reconciliation ___ Sacrament of Sick _x__ Supportive presence ___ Wedding ___ Other (describe below) Pastoral Comments patient has been seen before in previous admissions; pt is given time to talk and to express his feelings; pt acknowledges that he is getting weary of many admissions and having similar problems; pt also speaks of a friend who has health and relationship issues which show a sensitivity to the plight of others; pt states that he has no other real needs but does welcome prayer and the presence of this reinsurance clerk
--- NOTE | 2023-08-10 16:02 | NURSING ---
talked with Aung at [facility] transfer center aware no bed at this time.
[2023-08-10 20:00] VITALS: BP 143/84; PULSE 91; RESP 18; TEMP 36.5; O2SAT 97
[2023-08-11] MEDS: Metoclopramide 10 MG/2 ML Vial 5 MG IV ×4 (01:00→17:51)
[2023-08-11] MEDS: 0.9% Normal Saline (1000mL) 1,000 ML 150 ML IV ×4 (01:14→21:40)
[2023-08-11] MEDS: 0.9% Saline Lock 10 ML Syringe IV (01:15)
[2023-08-11 01:16] VITALS: BP 127/74; PULSE 95; RESP 18; TEMP 37.2; O2SAT 96
[2023-08-11 04:36] VITALS: BP 115/66; PULSE 88; RESP 18; TEMP 36.8; O2SAT 95
[2023-08-11 06:36] LABS: Absolute Lymphocyte Count 1.26 X10^3/uL (0.83-4.51); Absolute Neutrophil Count 9.1 X10^3/uL (2.0-7.7); Basophil# 0.04 X10^3/uL; Basophil% 0.3 % (0-1); Eosinophil# 0.03 X10^3/uL; Eosinophils% 0.3 % (0-5); Hematocrit 35.2 % (40-54); Hemoglobin 11.1 g/dL (13.0-16.5); Lymphocyte # 1.26 X10^3/ul (0.83-4.51); Lymphocyte % 10.6 % (19-41); Mean Corp Hgb Conc 31.5 g/dL (32-36); Mean Corpuscular Volume 91.9 fL (80-94); Mean Platelet Vol. 10.1 fl (6.2-12.0); Monocyte% 12.6 % (0-10); NRBC Flagged by Analyzer 0 % (0-5); Neutrophil # 9.06 X10^3/uL (2.7-7.7); Neutrophil % 75.9 % (47-70); Platelet Count 387 K/mm3 (150-450); RBC Distribution Width CV 12.7 % (11.6-14.6); RBC Distribution Width SD 41.8 fl (35.1-43.9); Red Blood Count 3.83 M/mm3 (4.6-6.2); White Blood Count 11.9 K/mm3 (4.4-11.0)
[2023-08-11 07:25] LABS: Anion Gap 12 (5-15); BUN 12 mg/dL (7-18); BUN/Creat Ratio 20.8 RATIO (10-20); Chloride 105 mmol/L (98-107); Creatinine, Serum 0.58 mg/dL (0.70-1.30); EST Glomerular Filtration Rate 155 mL/min (>60); Est Glom Filt Rate - Afr Amer 188 mL/min (>60); Estimated Creatinine Clearance 115.41 ml/min; Glucose 69 mg/dL (74-106); Potassium 3.2 mmol/L (3.5-5.1); Sodium Level 139 mmol/L (136-145)
--- NOTE | 2023-08-11 08:01 | PCM.PN.HOSP ---
Reason for Visit Reason for Visit: Diagnoses Elevated white blood cell count, unspecified (08/09/23) Hypo-osmolality and hyponatremia (08/09/23) Unspecified intestinal obstruction, unspecified as to partial versus complete obstruction (08/09/23) Subjective Subjective Denies complaints. No BM. No flatus. He says his abdomen growls more at night. Objective Data Objective Data Vital Signs: Vital Signs Temp Pulse Resp BP Pulse Ox O2 Del Method 36.8 C 88 18 115/66 95 Room Air 08/11/23 04:36 08/11/23 04:36 08/11/23 04:36 08/11/23 04:36 08/11/23 04:36 08/11/23 04:36 Oxygen Delivery Method Room Air Weight: 56.699 kg Body Mass Index (BMI) 22.1 Intake & Output: Intake and Output for Last 24 Hours 08/09/23 08/10/23 08/11/23 23:59 23:59 23:59 Intake Total 3102.5 / 3102.5 3155.0 / 3155.0 1090 / 1090 Output Total 1050 / 1050 3650 / 3650 1300 / 1300 Balance 2052.5 / 2052.5 -495.0 / -495.0 -210 / -210 Lab / Micro Data 08/11/23 05:35 08/11/23 05:35 Labs: Laboratory Results - last 24 hr 08/11/23 05:35: WBC 11.9 H, RBC 3.83 L, Hgb 11.1 L, Hct 35.2 L, MCV 91.9, MCH 29.0, MCHC 31.5 L D, RDW Std Deviation 41.8, RDW Coeff of Frieda 12.7, Plt Count 387, MPV 10.1, Immature Gran % (Auto) 0.300, Neut % (Auto) 75.9 H, Lymph % (Auto) 10.6 L, [place] % (Auto) 12.6 H, Eos % (Auto) 0.3, Baso % (Auto) 0.3, Absolute Neuts (auto) 9.1 H, Absolute Lymphs (auto) 1.26, Nucleated RBC % 0, Sodium 139, Potassium 3.2 L, Chloride 105, Carbon Dioxide 22.0, Anion Gap 12, BUN 12, Creatinine 0.58 L, Estim Creat Clear Calc 115.41, Est GFR (MDRD) Af Amer 188, Est GFR (MDRD) Non-Af 155, BUN/Creatinine Ratio 20.8 H, Glucose 69 L, Calcium 8.0 L Physical Exam Const alert and no apparent distress Cardio regular rate, regular rhythm, S1 normal heart sound and S2 normal heart sound GI normal to inspection, nondistended, normoactive bowel sounds GI Narrative: copious dark brown drainage from NGT. Neuro oriented x3 Sensorium / Orientation: awake and alert Assessment & Plan Assessment/Plan (1) Small bowel obstruction: PLAN: Versus ileus, though this is less likely given any significant failure to improve. Continue with NG tube to low intermittent suction. IV fluids, antiemetics, nonnarcotic analgesia. Metoclopramide, scheduled. Patient does get better we can manage him here by clamping NG tube and assessing his overall response. If he does not get better or certainly if he gets worse, patient still waiting on transfer to the [facility]. (2) Leukocytosis: QUALIFIERS: Leukocytosis type: unspecified Qualified Code(s): D72.829 - Elevated white blood cell count, unspecified PLAN: Resovled Suspect reactive due to small bowel obstruction or ileus Monitor (3) Hyponatremia: PLAN: Resolved May be due to hypovolemia. Continue with IV fluids and monitor (4) Hypokalemia: PLAN: Likely secondary to GI losses Replace Magnesium 2.1 PLAN: Plan Chronic conditions BPH: Hold tamsulosin for now Spina bifida: Hold baclofen. 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 Concern for infection at this time, however, who presents precludes her surgery managing this patient here. VTE prophylaxis: SCDs CODE STATUS: Addressed with the patient's sister at bedside. DNR Comfort Care arrest no intubation. Charges/Coding Visit Charges Inpatient E&M: 61417 Subs Hosp L2
--- NOTE | 2023-08-11 08:32 | NURSING ---
[facility] called at this time for transfer status update. No bed available at this time, patient remains on waiting list.
[2023-08-11 08:40] LABS: Magnesium 2.1 mg/dL (1.6-2.6)
[2023-08-11] MEDS: Potassium Chloride 10mEq/100mL 10 MEQ/100 ML IV.SOLN. 100 MEQ IV BOLUS ×4 (09:49→13:13)
[2023-08-11 10:00] VITALS: BP 110/65; PULSE 83; RESP 18; TEMP 37.2; O2SAT 96
[2023-08-11 15:04] VITALS: BP 137/84; PULSE 85; RESP 18; TEMP 37.2; O2SAT 96
[2023-08-11] MEDS: Phenol/Sodium Phenolate 180ML 2 SPRAY MUCOUS MEM ×2 (17:51→22:52)
[2023-08-11 22:00] VITALS: BP 134/87; PULSE 96; RESP 18; TEMP 37.3; O2SAT 97
[2023-08-11 22:16] LABS: Bedside Glucose 79 mg/dL (74-106)
[2023-08-12] MEDS: 0.9% Saline Lock 10 ML Syringe IV ×3 (00:29→18:24)
[2023-08-12] MEDS: Metoclopramide 10 MG/2 ML Vial 5 MG IV ×4 (00:29→18:14)
[2023-08-12 03:00] VITALS: BP 129/79; PULSE 93; RESP 16; TEMP 37.1; O2SAT 96
[2023-08-12] MEDS: 0.9% Normal Saline (1000mL) 1,000 ML 150 ML IV (03:23)
[2023-08-12 05:55] LABS: Absolute Lymphocyte Count 1.54 X10^3/uL (0.83-4.51); Absolute Neutrophil Count 9.3 X10^3/uL (2.0-7.7); Basophil# 0.04 X10^3/uL; Basophil% 0.3 % (0-1); Eosinophil# 0.03 X10^3/uL; Eosinophils% 0.2 % (0-5); Hematocrit 35.2 % (40-54); Hemoglobin 11.2 g/dL (13.0-16.5); Lymphocyte # 1.54 X10^3/ul (0.83-4.51); Lymphocyte % 12.1 % (19-41); Mean Corp Hgb Conc 31.8 g/dL (32-36); Mean Corpuscular Hgb 28.9 pg (27.0-32.0); Mean Platelet Vol. 9.9 fl (6.2-12.0); Monocyte# 1.76 X10^3/uL; Monocyte% 13.8 % (0-10); NRBC Flagged by Analyzer 0 % (0-5); Neutrophil # 9.31 X10^3/uL (2.7-7.7); Neutrophil % 73.1 % (47-70); POSITIVE DIFFERENTIAL YES; Platelet Count 384 K/mm3 (150-450); RBC Distribution Width CV 12.8 % (11.6-14.6); RBC Distribution Width SD 42.6 fl (35.1-43.9); Red Blood Count 3.87 M/mm3 (4.6-6.2); White Blood Count 12.8 K/mm3 (4.4-11.0)
[2023-08-12 05:56] LABS: Differential Indicated SCAN CRITERIA MET
[2023-08-12 06:21] LABS: Differential Comment SCANNED
[2023-08-12 06:29] LABS: Anion Gap 12 (5-15); BUN 9 mg/dL (7-18); Calcium,Total 8.2 mg/dL (8.5-10.1); Chloride 108 mmol/L (98-107); EST Glomerular Filtration Rate 148 mL/min (>60); Est Glom Filt Rate - Afr Amer 179 mL/min (>60); Estimated Creatinine Clearance 111.56 ml/min; Glucose 74 mg/dL (74-106); Potassium 3.2 mmol/L (3.5-5.1); Sodium Level 140 mmol/L (136-145)
[2023-08-12 07:12] LABS: Bedside Glucose 71 mg/dL (74-106)
[2023-08-12] MEDS: Phenol/Sodium Phenolate 180ML 2 SPRAY MUCOUS MEM ×2 (08:09→18:24)
[2023-08-12 08:15] VITALS: O2SAT 98
[2023-08-12 08:17] VITALS: BP 139/80; PULSE 92; RESP 16; TEMP 36.2; O2SAT 98
--- NOTE | 2023-08-12 08:26 | NURSING ---
This RN is aware of Vital Signs taken by [facility] Braille Operator. Pt seems to be having continous dry coughing this morning. Pt denies sputum. This Rn will consult hospitalist possibly ordering I.S and peep. sp02 98% on RA at rest.
--- NOTE | 2023-08-12 08:34 | PCM.PN.HOSP ---
Reason for Visit Reason for Visit: Diagnoses Elevated white blood cell count, unspecified (08/09/23) Hypo-osmolality and hyponatremia (08/09/23) Hypokalemia (08/09/23) Unspecified intestinal obstruction, unspecified as to partial versus complete obstruction (08/09/23) Subjective Subjective Still no BM, nor flatus. Objective Data Objective Data Vital Signs: Vital Signs Temp Pulse Resp BP Pulse Ox O2 Del Method 36.2 C L 92 16 139/80 H 98 Room Air 08/12/23 08:17 08/12/23 08:17 08/12/23 08:17 08/12/23 08:17 08/12/23 08:17 08/12/23 08:17 Oxygen Delivery Method Room Air Weight: 56.699 kg Body Mass Index (BMI) 22.1 Intake & Output: Intake and Output for Last 24 Hours 08/10/23 08/11/23 08/12/23 23:59 23:59 23:59 Intake Total 3155.0 / 3155.0 4610 / 4610 887.5 / 887.5 Output Total 3650 / 3650 3900 / 3900 1040 / 1040 Balance -495.0 / -495.0 710 / 710 -152.5 / -152.5 Lab / Micro Data 08/12/23 05:12 08/12/23 05:12 Labs: Laboratory Results - last 24 hr 08/11/23 05:35: Magnesium 2.1 08/11/23 20:37: POC Glucose 79 08/12/23 05:12: WBC 12.8 H, RBC 3.87 L, Hgb 11.2 L, Hct 35.2 L, MCV 91.0, MCH 28.9, MCHC 31.8 L, RDW Std Deviation 42.6, RDW Coeff of Frieda 12.8, Plt Count 384, MPV 9.9, Immature Gran % (Auto) 0.500, Neut % (Auto) 73.1 H, Lymph % (Auto) 12.1 L, [place] % (Auto) 13.8 H, Eos % (Auto) 0.2, Baso % (Auto) 0.3, Absolute Neuts (auto) 9.3 H, Absolute Lymphs (auto) 1.54, Nucleated RBC % 0, Differential Comment SCANNED, Diff Path Review March, Sodium 140, Potassium 3.2 L, Chloride 108 H, Carbon Dioxide 20.0 L, Anion Gap 12, BUN 9, Creatinine 0.60 L, Estim Creat Clear Calc 111.56, Est GFR (MDRD) Af Amer 179, Est GFR (MDRD) Non-Af 148, BUN/Creatinine Ratio 15.0, Glucose 74, Calcium 8.2 L 08/12/23 05:52: POC Glucose 71 L Physical Exam Const alert and no apparent distress Resp normal respiratory effort, no retractions, no use of accessory muscles and clear to auscultation bilaterally Cardio regular rate, regular rhythm, S1 normal heart sound and S2 normal heart sound GI normal to inspection, nondistended, normoactive bowel sounds, soft to palpation, non-tender and non-distended Assessment & Plan Assessment/Plan (1) Small bowel obstruction: PLAN: Versus ileus, though this is less likely given any significant failure to improve. Continue with NG tube to low intermittent suction. IV fluids, antiemetics, nonnarcotic analgesia. Metoclopramide, scheduled. Patient does get better we can manage him here by clamping NG tube and assessing his overall response. If he does not get better or certainly if he gets worse, patient still waiting on transfer to the [facility]. Tried suppository, no effect. Will attempt tap water enema. (2) Leukocytosis: QUALIFIERS: Leukocytosis type: unspecified Qualified Code(s): D72.829 - Elevated white blood cell count, unspecified PLAN: Resovled Suspect reactive due to small bowel obstruction or ileus Monitor (3) Hyponatremia: PLAN: Resolved May be due to hypovolemia. Continue with IV fluids and monitor (4) Hypokalemia: PLAN: Likely secondary to GI losses Replace Magnesium 2.1 PLAN: Plan Chronic conditions BPH: Hold tamsulosin for now Spina bifida: Hold baclofen. 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 Concern for infection at this time, however, who presents precludes her surgery managing this patient here. VTE prophylaxis: SCDs CODE STATUS: Addressed with the patient's sister at bedside. DNR Comfort Care arrest no intubation. Charges/Coding Visit Charges Inpatient E&M: 36369 Subs Hosp L2
[2023-08-12 09:26] VITALS: O2SAT 98
[2023-08-12] MEDS: 0.9% Normal Saline (1000mL) 1,000 ML 100 ML IV ×2 (09:47→18:17)
[2023-08-12] MEDS: Potassium Chloride 10mEq/100mL 10 MEQ/100 ML IV.SOLN. 100 MEQ IV BOLUS ×4 (09:47→12:54)
[2023-08-12 12:21] LABS: Pathologist Review Reviewed
[2023-08-12] MEDS: Bisacodyl 10 MG Suppository RC (12:54)
[2023-08-12 13:26] LABS: Bedside Glucose 84 mg/dL (74-106)
--- NOTE | 2023-08-12 13:30 | NURSING ---
Pt's sister wanted to give the suppository to the patient and not have this RN do it. Dr. Palacio aware. Pt's sister Cassidy also requesting Tap water Enema for pt b/c thats what we do at home despite education that we should give the suppository time to work, pt sister wants tap water enema ordered. This RN informed Dr. Palacio and he was okay with her giving the tap water enema.
[2023-08-12 16:40] VITALS: BP 138/83; PULSE 86; RESP 16; TEMP 37.4; O2SAT 96
[2023-08-12 18:47] LABS: Bedside Glucose 87 mg/dL (74-106)
[2023-08-12 20:32] VITALS: BP 139/81; PULSE 83; RESP 16; TEMP 36.8; O2SAT 99
[2023-08-13] MEDS: Metoclopramide 10 MG/2 ML Vial 5 MG IV ×4 (00:13→17:45)
[2023-08-13 00:20] VITALS: BP 129/76; PULSE 89; RESP 16; TEMP 37.1; O2SAT 97
[2023-08-13] MEDS: Phenol/Sodium Phenolate 180ML 2 SPRAY MUCOUS MEM (00:33)
[2023-08-13 00:57] LABS: Bedside Glucose 82 mg/dL (74-106)
[2023-08-13] MEDS: 0.9% Normal Saline (1000mL) 1,000 ML 100 ML IV ×3 (04:07→22:32)
[2023-08-13 05:47] VITALS: BP 132/76; PULSE 90; RESP 16; TEMP 36.9; O2SAT 93
[2023-08-13 06:11] LABS: Bedside Glucose 83 mg/dL (74-106)
[2023-08-13 07:11] LABS: Absolute Lymphocyte Count 1.37 X10^3/uL (0.83-4.51); Absolute Neutrophil Count 9.1 X10^3/uL (2.0-7.7); Basophil# 0.04 X10^3/uL; Basophil% 0.3 % (0-1); Eosinophil# 0.07 X10^3/uL; Eosinophils% 0.6 % (0-5); Hematocrit 35.9 % (40-54); Hemoglobin 11.3 g/dL (13.0-16.5); Lymphocyte # 1.37 X10^3/ul (0.83-4.51); Lymphocyte % 11.4 % (19-41); Mean Corp Hgb Conc 31.5 g/dL (32-36); Mean Corpuscular Hgb 28.7 pg (27.0-32.0); Mean Corpuscular Volume 91.1 fL (80-94); Mean Platelet Vol. 10.1 fl (6.2-12.0); Monocyte# 1.46 X10^3/uL; Monocyte% 12.1 % (0-10); NRBC Flagged by Analyzer 0 % (0-5); Neutrophil # 9.07 X10^3/uL (2.7-7.7); Neutrophil % 75.4 % (47-70); Platelet Count 394 K/mm3 (150-450); RBC Distribution Width CV 12.9 % (11.6-14.6); Red Blood Count 3.94 M/mm3 (4.6-6.2)
--- NOTE | 2023-08-13 07:36 | PN.HOSP_ITS ---
Reason for Visit Reason for Visit: Diagnoses Elevated white blood cell count, unspecified (08/09/23) Hypo-osmolality and hyponatremia (08/09/23) Hypokalemia (08/09/23) Unspecified intestinal obstruction, unspecified as to partial versus complete obstruction (08/09/23) Subjective Subjective Did have a BM yesterday. Denies any complaints. Objective Data Objective Data Vital Signs: Vital Signs Temp Pulse Resp BP Pulse Ox O2 Del Method 36.9 C 90 16 132/76 H 93 Room Air 08/13/23 05:47 08/13/23 05:47 08/13/23 05:47 08/13/23 05:47 08/13/23 05:47 08/13/23 05:47 Oxygen Delivery Method Room Air Weight: 56.699 kg Body Mass Index (BMI) 22.1 Intake & Output: Intake and Output for Last 24 Hours 08/11/23 08/12/23 08/13/23 23:59 23:59 23:59 Intake Total 4610 / 4610 3240.83 / 3240.83 1103.33 / 1103.33 Output Total 3900 / 3900 3390 / 3390 1000 / 1000 Balance 710 / 710 -149.17 / -149.17 103.33 / 103.33 Lab / Micro Data 08/13/23 06:32 08/13/23 06:32 Labs: Laboratory Results - last 24 hr 08/12/23 05:12: Diff Path Review Reviewed 08/12/23 13:07: POC Glucose 84 08/12/23 18:26: POC Glucose 87 08/13/23 00:28: POC Glucose 82 08/13/23 05:39: POC Glucose 83 08/13/23 06:32: WBC 12.0 H, RBC 3.94 L, Hgb 11.3 L, Hct 35.9 L, MCV 91.1, MCH 28.7, MCHC 31.5 L, RDW Std Deviation 43.0, RDW Coeff of Frieda 12.9, Plt Count 394, MPV 10.1, Immature Gran % (Auto) 0.200, Neut % (Auto) 75.4 H, Lymph % (Auto) 11.4 L, [place] % (Auto) 12.1 H, Eos % (Auto) 0.6, Baso % (Auto) 0.3, Absolute Neuts (auto) 9.1 H, Absolute Lymphs (auto) 1.37, Nucleated RBC % 0 Physical Exam Const alert and no apparent distress HEENT head/scalp atraumatic and moist oral mucous membranes Resp normal respiratory effort, no retractions, no use of accessory muscles and clear to auscultation bilaterally Cardio regular rate, regular rhythm, S1 normal heart sound and S2 normal heart sound GI normal to inspection, nondistended, normoactive bowel sounds, soft to palpation and non-tender Assessment & Plan Assessment/Plan (1) Small bowel obstruction: PLAN: Versus ileus, though this is less likely given any significant failure to improve. Continue with NG tube to low intermittent suction. IV fluids, antiemetics, nonnarcotic analgesia. Metoclopramide, scheduled. Patient does get better we can manage him here by clamping NG tube and assessing his overall response. If he does not get better or certainly if he gets worse, patient still waiting on transfer to the [facility]. Did abdomen on . We will clamp the NG tube and evaluate. (2) Leukocytosis: QUALIFIERS: Leukocytosis type: unspecified Qualified Code(s): D72.829 - Elevated white blood cell count, unspecified PLAN: Resovled Suspect reactive due to small bowel obstruction or ileus Monitor (3) Hyponatremia: PLAN: Resolved May be due to hypovolemia. Continue with IV fluids and monitor (4) Hypokalemia: PLAN: Likely secondary to GI losses Replace Magnesium 2.1 PLAN: Plan Chronic conditions * BPH: Hold tamsulosin for now * Spina bifida: Hold baclofen. 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 Concern for infection at this time, however, who presents precludes her surgery managing this patient here. VTE prophylaxis: SCDs CODE STATUS: Addressed with the patient's sister at bedside. DNR Comfort Care arrest no intubation. Charges/Coding Visit Charges Inpatient E&M: 97824 Subs Hosp L2
[2023-08-13 07:40] LABS: ALB/GLOB Ratio 0.7 RATIO (0.9-2.4); AST(SGOT) 8 U/L (15-37); Alanine Aminotransfer ALT/SGPT 13 U/L (16-61); Albumin, Serum 2.7 g/dL (3.2-5.0); Alkaline Phosphatase 58 U/L (45-117); Anion Gap 11 (5-15); BUN 6 mg/dL (7-18); BUN/Creat Ratio 10.5 RATIO (10-20); Calcium,Total 8.2 mg/dL (8.5-10.1); Chloride 109 mmol/L (98-107); Creatinine, Serum 0.57 mg/dL (0.70-1.30); EST Glomerular Filtration Rate 157 mL/min (>60); Est Glom Filt Rate - Afr Amer 190 mL/min (>60); Estimated Creatinine Clearance 117.43 ml/min; Globulin 3.7 g/dL (2.2-4.2); Glucose 81 mg/dL (74-106); Potassium 3.2 mmol/L (3.5-5.1); Protein, Total 6.4 g/dL (6.4-8.2); Sodium Level 138 mmol/L (136-145)
[2023-08-13 08:18] VITALS: BP 128/81; PULSE 93; RESP 18; TEMP 37.1; O2SAT 94
[2023-08-13] MEDS: Potassium Chloride 10mEq/100mL 10 MEQ/100 ML IV.SOLN. 100 MEQ IV BOLUS ×4 (10:50→14:10)
[2023-08-13] MEDS: 0.9% Normal Saline (250mL Bag) 250 ML 15 ML IV (10:52)
[2023-08-13] MEDS: Bisacodyl 10 MG Suppository RC (14:09)
[2023-08-13 14:17] VITALS: BP 148/90; PULSE 88; RESP 18; TEMP 37.1; O2SAT 100
--- NOTE | 2023-08-13 15:28 | NURSING ---
approximately 1200; pt given 100 cc of liquid sister Lucina requests 50cc water with some sugar in it and also 50cc of applejuice with some sugar in it and she will assist pt with sipping/drinking.
[2023-08-13 16:25] VITALS: BP 147/87; PULSE 86
[2023-08-13 16:51] LABS: Bedside Glucose 74 mg/dL (74-106)
[2023-08-13 18:07] LABS: Bedside Glucose 92 mg/dL (74-106)
[2023-08-13 20:20] VITALS: BP 151/91; PULSE 90; RESP 16; TEMP 37.2; O2SAT 97
[2023-08-14] MEDS: Metoclopramide 10 MG/2 ML Vial 5 MG IV ×4 (00:41→17:37)
[2023-08-14 02:00] VITALS: BP 149/82; PULSE 85; RESP 16; TEMP 36.6; O2SAT 99
[2023-08-14 05:24] LABS: Bedside Glucose 96 mg/dL (74-106)
[2023-08-14 06:20] LABS: Bedside Glucose 96 mg/dL (74-106)
[2023-08-14 07:08] LABS: Absolute Lymphocyte Count 1.92 X10^3/uL (0.83-4.51); Absolute Neutrophil Count 3.6 X10^3/uL (2.0-7.7); Basophil# 0.04 X10^3/uL; Basophil% 0.6 % (0-1); Eosinophil# 0.27 X10^3/uL; Hematocrit 34.2 % (40-54); Hemoglobin 11.3 g/dL (13.0-16.5); Lymphocyte # 1.92 X10^3/ul (0.83-4.51); Lymphocyte % 28.6 % (19-41); Mean Corpuscular Volume 87.9 fL (80-94); Mean Platelet Vol. 9.5 fl (6.2-12.0); Monocyte# 0.92 X10^3/uL; Monocyte% 13.7 % (0-10); NRBC Flagged by Analyzer 0 % (0-5); Neutrophil # 3.56 X10^3/uL (2.7-7.7); Platelet Count 378 K/mm3 (150-450); RBC Distribution Width CV 12.8 % (11.6-14.6); RBC Distribution Width SD 41.4 fl (35.1-43.9); Red Blood Count 3.89 M/mm3 (4.6-6.2); White Blood Count 6.7 K/mm3 (4.4-11.0)
--- NOTE | 2023-08-14 07:28 | PN.HOSP_ITS ---
Reason for Visit Reason for Visit: Diagnoses Elevated white blood cell count, unspecified (08/09/23) Hypo-osmolality and hyponatremia (08/09/23) Hypokalemia (08/09/23) Unspecified intestinal obstruction, unspecified as to partial versus complete obstruction (08/09/23) Subjective Subjective Sneezed out his NGT yesterday. Instead of replacing it, I kept it out. He had small BMs yesterday. Started on clear liquid diet. Objective Data Objective Data Vital Signs: Vital Signs Temp Pulse Resp BP Pulse Ox O2 Del Method 36.6 C 85 16 149/82 H 99 Room Air 08/14/23 02:00 08/14/23 02:00 08/14/23 02:00 08/14/23 02:00 08/14/23 02:00 08/14/23 02:00 Oxygen Delivery Method Room Air Weight: 56.699 kg Body Mass Index (BMI) 22.1 Intake & Output: Intake and Output for Last 24 Hours 08/12/23 08/13/23 08/14/23 23:59 23:59 23:59 Intake Total 3240.83 / 3240.83 3387.75 / 3387.75 Output Total 3390 / 3390 2550 / 2550 850 / 850 Balance -149.17 / -149.17 837.75 / 837.75 -850 / -850 Lab / Micro Data 08/14/23 06:30 08/14/23 06:30 Labs: Laboratory Results - last 24 hr 08/13/23 06:32: Sodium 138, Potassium 3.2 L, Chloride 109 H, Carbon Dioxide 18.0 L, Anion Gap 11, BUN 6 L, Creatinine 0.57 L, Estim Creat Clear Calc 117.43, Est GFR (MDRD) Af Amer 190, Est GFR (MDRD) Non-Af 157, BUN/Creatinine Ratio 10.5, Glucose 81, Calcium 8.2 L, Total Bilirubin 0.70, AST 8 L, ALT 13 L, Alkaline Phosphatase 58, Total Protein 6.4, Albumin 2.7 L, Globulin 3.7, Albumin/Globulin Ratio 0.7 L 08/13/23 11:56: POC Glucose 74 08/13/23 17:43: POC Glucose 92 08/14/23 00:37: POC Glucose 96 08/14/23 05:54: POC Glucose 96 08/14/23 06:30: WBC 6.7, RBC 3.89 L, Hgb 11.3 L, Hct 34.2 L, MCV 87.9, MCH 29.0, MCHC 33.0, RDW Std Deviation 41.4, RDW Coeff of Frieda 12.8, Plt Count 378, MPV 9.5, Immature Gran % (Auto) 0.100, Neut % (Auto) 53.0, Lymph % (Auto) 28.6, [place] % (Auto) 13.7 H, Eos % (Auto) 4.0, Baso % (Auto) 0.6, Absolute Neuts (auto) 3.6, Absolute Lymphs (auto) 1.92, Nucleated RBC % 0 Physical Exam Const alert HEENT head/scalp atraumatic Cardio regular rate, regular rhythm, S1 normal heart sound and S2 normal heart sound GI normal to inspection, nondistended, normoactive bowel sounds, soft to palpation, non-tender and non-distended Extremity normal to inspection Neuro oriented x3 and CN's II-XII intact bilaterally Assessment & Plan Assessment/Plan (1) Small bowel obstruction: PLAN: Resolved versus ileus, though this is less likely given any significant failure to improve. Continue with NG tube to low intermittent suction. IV fluids, antiemetics, nonnarcotic analgesia. Metoclopramide, scheduled. Patient does get better we can manage him here by clamping NG tube and assessing his overall response. If he does not get better or certainly if he gets worse, patient still waiting on transfer to the [facility]. NG tube sneezed out on the . Kept out. Tolerating clears. Will advance to full's and if tolerates that then can transition to a transitional diet. And if remains stable, hopefully be able to discharge on the second. No need for transfer at this time as patient is medically stable. (2) Leukocytosis: QUALIFIERS: Leukocytosis type: unspecified Qualified Code(s): D72.829 - Elevated white blood cell count, unspecified PLAN: Resovled Suspect reactive due to small bowel obstruction or ileus Monitor (3) Hyponatremia: PLAN: Resolved May be due to hypovolemia. Continue with IV fluids and monitor (4) Hypokalemia: PLAN: Likely secondary to GI losses Replace Magnesium 2.1 PLAN: Plan Chronic conditions * BPH: Hold tamsulosin for now * Spina bifida: Hold baclofen. 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 Concern for infection at this time, however, who presents precludes her surgery managing this patient here. VTE prophylaxis: SCDs CODE STATUS: Addressed with the patient's sister at bedside. DNR Comfort Care arrest no intubation. Charges/Coding Visit Charges Inpatient E&M: 17748 Subs Hosp L2
[2023-08-14 07:31] LABS: Anion Gap 7 (5-15); BUN 3 mg/dL (7-18); BUN/Creat Ratio 6.5 RATIO (10-20); Chloride 106 mmol/L (98-107); Creatinine, Serum 0.46 mg/dL (0.70-1.30); EST Glomerular Filtration Rate 199 mL/min (>60); Est Glom Filt Rate - Afr Amer 241 mL/min (>60); Estimated Creatinine Clearance 145.51 ml/min; Glucose 108 mg/dL (74-106); Sodium Level 136 mmol/L (136-145)
[2023-08-14 08:02] VITALS: BP 126/87; PULSE 91; RESP 18; TEMP 36.7; O2SAT 97
[2023-08-14] MEDS: 0.9% Normal Saline (1000mL) 1,000 ML 100 ML IV (08:11)
--- NOTE | 2023-08-14 10:36 | PCA ---
Per RN she states Dr. Lozano said it is okay to cancel pending transfer for [facility]
[2023-08-14 13:51] VITALS: BP 126/84; PULSE 93; RESP 18; TEMP 37.2; O2SAT 99
[2023-08-14] MEDS: Potassium Chloride Oral Soln 20 MEQ/15 ML UDC 40 MEQ PO (13:53)
[2023-08-14] MEDS: 0.9% Saline Lock 10 ML Syringe IV ×2 (15:55→17:37)
[2023-08-14 20:20] VITALS: BP 152/96; PULSE 88; RESP 16; TEMP 36.9; O2SAT 97
[2023-08-14] MEDS: Metoclopramide 5 MG TABLET PO (20:49)
[2023-08-15 02:20] VITALS: BP 121/77; PULSE 82; RESP 16; TEMP 36.6; O2SAT 96
[2023-08-15] MEDS: Metoclopramide 5 MG TABLET PO ×2 (06:32→10:24)
[2023-08-15] MEDS: Phenol/Sodium Phenolate 180ML 2 SPRAY MUCOUS MEM (06:37)
[2023-08-15 10:22] VITALS: BP 131/88; PULSE 99; RESP 18; TEMP 36.6; O2SAT 96
--- NOTE | 2023-08-15 15:52 | DCINST_ITS ---
Discharge Instructions Diet Discharge Diet: Soft diet (advance slowly as tolerated) Activity Discharge Activity: Return to Normal Activity Weight Bearing Status: Weight bearing as tolerated Dressing / Incision Call your doctor if you observe: Fever of 101 or Higher, Shortness of breath, Dizziness and Chest pain Follow Up Care Test Results: Test results from this visit will be discussed in further detail at your follow- up appointment, if applicable. Discharge Plan Admission Admit Date/Time: 08/09/23 14:30 Primary Reason for Your Visit: small bowel obstruction Attending Provider: Conchita Rankin Primary Care Provider: Lyndon Sanders Consulting Providers: Richard Palacio Instructions Patient Instructions: Small Bowel Obstruction Discharge Orders/Prescriptions Prescriptions: Continued baclofen 5 MG tablet 5 mg PO TID Patient Comments: Hold for sedation/lethargy metoclopramide HCl [Reglan] 5 mg tablet 5 mg PO Q6H 30 Days Qty: 120 0RF Linzess 290 mcg capsule 290 mcg PO DAILY omeprazole 20 mg capsule,delayed release(DR/EC) 20 mg PO DAILY Motegrity 2 mg tablet 2 mg PO DAILY tamsulosin 0.4 mg Capsule 0.4 mg PO 1730 Referrals / Follow Up: Lyndon Sanders MD [Primary Care Provider] - Within 1 Week Disposition Disposition (needs filled in before D/C Order can be placed): Home, Self Care
--- NOTE | 2023-08-15 15:53 | PCM.DC.SUM ---
Providers Date of Admission: 08/09/23 Date of Discharge: 08/15/23 Primary Care Physician: Dr. Lyndon Sanders MD Reason For Visit: SMALL BOWL OBSTRUCTION Diagnosis Discharge Diagnosis (1) Small bowel obstruction: Status: Acute Code(s): K56.609 - Unspecified intestinal obstruction, unspecified as to partial versus complete obstruction (2) Leukocytosis: Status: Acute Code(s): D72.829 - Elevated white blood cell count, unspecified Qualifiers: Leukocytosis type: unspecified Qualified Code(s): D72.829 - Elevated white blood cell count, unspecified (3) Hyponatremia: Status: Acute Code(s): E87.1 - Hypo-osmolality and hyponatremia (4) Hypokalemia: Status: Resolved Code(s): E87.6 - Hypokalemia Medications at Discharge Home Medications baclofen 5 mg tablet 5 mg PO TID MUSCLE SPASMS 07/21/22 metoclopramide HCl 5 mg tablet (Reglan) 5 mg PO Q6H 30 days #120 tabs 05/16/23 linaclotide 290 mcg capsule (Linzess) 290 mcg PO DAILY IRRITABLE BOWELS 08/09/23 omeprazole 20 mg capsule,delayed release 20 mg PO DAILY ACID REFLUX 08/09/23 prucalopride 2 mg tablet (Motegrity) 2 mg PO DAILY CHRONIC CONSTIPATION 08/09/23 tamsulosin 0.4 mg capsule 0.4 mg PO 1730 PROSTATE 08/09/23 Hospital Course Operations None Procedures None Summary of Care Provided Minutes Spent on Discharge: 55 Hospital Course: JIAN ALTAMIRANO, is a 57 M with a PMH as outlined who presents via the ED on 08/09/2023 with abdominal pain. He had associated vomiting and abdominal distension; he had had similar episodes in the past but it had worsened. this time. He came in to the ED and abdominal imaging done showed evidence of small bowel obstruction, with significant distension of hte stomach and proximal small bowel with distal transition. NG tube was inserted. 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 Patient was therefore to be transfered to [facility]. He was accepted at [facility] pending bed availability. He was eventually admitted to [facility] because of no bed availability at [facility]. He was intially kept NPO; abdominal pain resolved and he felt much better. He started passing gas. He was started on a clear liquid diet which he tolerated. He was advanced to a transitional diet which he also tolerated and did well. On the day of discharge, 08/15/2023, patient tolerated both breakfast and lunch on the transitional diet. He remained stable and requested to be discharged home. There was no longer any need for transfer because he was no longer having abdominal pain, and was passing gas and tolerating a diet. He remained stable and was discharged home on 08/15/2023. He is to follow up with his PCP within one week. He is to advance his diet very slowly as tolerated. Patient seen and examined. He feels well and has no complaints. He had tolerated breakfast and subsequently tolerated lunch. He denied any nausea vomiting or abdominal pain. Review of systems otherwise negative. Labs and vitals reviewed. Home meds reviewed and reconciled. Physical Exam Const alert, oriented x3 and no apparent distress General Appearance: cooperative and comfortable Orientation / Consciousness: awake Exam Limitations: no limitations HEENT normocephalic, head/scalp atraumatic, hearing grossly normal bilaterally and moist oral mucous membranes Mouth: oral and palatal mucosa normal Eyes PERRL Neck no lymphadenopathy Resp normal respiratory effort, no retractions, no use of accessory muscles and clear to auscultation bilaterally Cardio regular rate, regular rhythm, S1 normal heart sound and S2 normal heart sound GI normal to inspection, nondistended, normoactive bowel sounds, soft to palpation, non-tender and non-distended Extremity normal to inspection Skin no rashes or lesions noted Neuro oriented x3 and CN's II-XII intact bilaterally Sensorium / Orientation: awake and alert Motor Exam: strength 5/5 throughout Psych affect normal Weight / BMI Weight Weight: 125 lb Body Mass Index (BMI) 22.1 ABG / Lab / Microbiology Data 08/14/23 06:30 08/14/23 06:30 D/C Instructions Discharge Diet: Soft diet (advance slowly as tolerated) Discharge Activity: Return to Normal Activity Weight Bearing Status: Weight bearing as tolerated Call your doctor if you observe: Fever of 101 or Higher, Shortness of breath, Dizziness and Chest pain Meaningful Use Info Meaningful Use Diagnoses (Choose all that apply): None applicable Discharge Plan Admission Admit Date/Time: 08/09/23 14:30 Primary Reason for Your Visit: small bowel obstruction Attending Provider: Conchita Rankin Primary Care Provider: Lyndon Sanders Consulting Providers: Richard Palacio Instructions Patient Instructions: Small Bowel Obstruction Discharge Orders/Prescriptions Prescriptions: Continued baclofen 5 MG tablet 5 mg PO TID Patient Comments: Hold for sedation/lethargy metoclopramide HCl [Reglan] 5 mg tablet 5 mg PO Q6H 30 Days Qty: 120 0RF Linzess 290 mcg capsule 290 mcg PO DAILY omeprazole 20 mg capsule,delayed release(DR/EC) 20 mg PO DAILY Motegrity 2 mg tablet 2 mg PO DAILY tamsulosin 0.4 mg Capsule 0.4 mg PO 1730 Referrals / Follow Up: Lyndon Sanders MD [Primary Care Provider] - Within 1 Week Disposition Disposition (needs filled in before D/C Order can be placed): Home, Self Care Charges/Coding Visit Charges Inpatient E&M: 88244 Disch Hosp >30min
--- NOTE | 2023-08-15 16:02 | CASEMGMT ---
Updated Marisabel at [facility] that pt will dc today.
[2023-08-15 16:11] VITALS: BP 126/81; PULSE 96; RESP 18; TEMP 36.6; O2SAT 98
== END 2023-08-15 16:27 | disposition home health service (06) | DRG 389 ==
LOC: ED 03:45 → MS3 14:37
PROVIDERS: Emergency Provider Emergency Medicine; PCP Family Medicine; Visit Provider Student in an Organized Health Care Education/Training Program
DX: K56.609 Unspecified intestinal obstruction, unspecified as to partial versus complete obstruction (principal); E87.1 Hypo-osmolality and hyponatremia; G82.20 Paraplegia, unspecified; Q05.4 Unspecified spina bifida with hydrocephalus; I10 Essential (primary) hypertension; E87.6 Hypokalemia; N40.0 Benign prostatic hyperplasia without lower urinary tract symptoms; Z66 Do not resuscitate; Z98.2 Presence of cerebrospinal fluid drainage device; Z79.899 Other long term (current) drug therapy
CPT/HCPCS: 36415; 51702; 74018; 74176; 80048; 80053; 80076; 82962; 83605; 83690; 83735; 85025; 92610; 94668; 99285; J7030; J7050; A4216; J2405

== ENCOUNTER 2023-09-20 18:47 | Observation (INO) | payer MEDICARE, MEDICAID, SELFPAY ==
[2023-09-20] VITALS (8 sets, daily range): BP systolic 105–139; BP diastolic 60–94; PULSE 82–105; RESP 13–18; TEMP 36.6–37.3; O2SAT 95–96; BMI 18.8
--- NOTE | 2023-09-20 19:06 | EKG12_ITS ---
Test Reason : COMPAINT Blood Pressure : / mmHG Vent. Rate : 095 BPM Atrial Rate : 095 BPM P-R Int : 134 ms QRS Dur : 104 ms QT Int : 348 ms P-R-T Axes : 041 043 036 degrees QTc Int : 437 ms Normal sinus rhythm Normal ECG Confirmed by DUANE DONOVAN, KENYATTA ([id number]), manager editorial ARTHUR DAMON ([id number]) on 09/26/2023 8:35:39 AM Referred By: CARLOS Confirmed By:KENYETTA ZEPEDA MD
--- NOTE | 2023-09-20 19:07 | EDS_ITS ---
HPI History of Present Illness Chief Complaint: Complaint Informant: patient and family (subassembler) Narrative Narrative: Patient with a fever of 101.7 axillary today according to subassembler at home. He has been having lots of sediment in his urine, intermittent leaking around the catheter maybe a week. Had the catheter changed just over a week ago and again today. Prior to changing it had about 200 cc out in the catheter, but a scant amount since then and it has been 5 hours. No bowel movement in the last 2 days but no vomiting, has a history of chronic constipation for which she is on medication follows with a specialist at [facility], and has been admitted for ileus and bowel obstructions in the past. When asked if he has abdominal pain right now, he states a little ache. Healthcare Management Consultant provides most all the history. She states she tested positive for COVID about a week ago, she is feeling better but other family members had a 2, and he has had chronic congestion with a little bit of a cough lately but no dyspnea. [facility] Medical History Bladder diverticulum Bladder stones BPH (benign prostatic hyperplasia) Catheter-associated urinary tract infection Chronic hyponatremia Chronic indwelling Bowman catheter Chronic indwelling Bowman catheter Chronic intestinal pseudo-obstruction Gastroparesis History of urinary retention Hydrocephalus Hydrocephalus Hypertension Hyponatremia Hyponatremia Ileus Inguinal hernia Normal pressure hydrocephalus Seizures Home Medications baclofen 5 mg tablet 5 mg PO TID MUSCLE SPASMS 07/21/22 [History Last Taken 02/20/23] metoclopramide HCl 5 mg tablet (Reglan) 5 mg PO Q6H 30 days #120 tabs 05/16/23 [Rx Last Taken Unknown] linaclotide 290 mcg capsule (Linzess) 290 mcg PO DAILY IRRITABLE BOWELS 08/09/23 [History Last Taken Unknown] omeprazole 20 mg capsule,delayed release 20 mg PO DAILY ACID REFLUX 08/09/23 [History Last Taken Unknown] prucalopride 2 mg tablet (Motegrity) 2 mg PO DAILY CHRONIC CONSTIPATION 08/09/23 [History Last Taken Unknown] tamsulosin 0.4 mg capsule 0.4 mg PO 1730 PROSTATE 08/09/23 [History Last Taken Unknown] Allergy/AdvReac Type Severity Reaction Status Date / Time Iodinated Contrast Media Allergy Anaphylaxis Verified 09/20/23 18:51 [Iodinated Contrast Media - IV Dye] nitrofurantoin AdvReac Upset Verified 09/20/23 18:51 Stomach Family History Father Heart disease Kidney stones Prostate disease Brother Kidney stones Other Cancer Peptic ulcer disease Surgical History S/P release of urethral stricture S/P ASSOCIATE SOFTWARE DEVELOPER shunt ASSOCIATE SOFTWARE DEVELOPER (ventriculoperitoneal) shunt status Social History household members: family Smoking Status: Never smoker alcohol intake: never substance use type: does not use ROS ROS ED Review of Systems ROS Unobtainable: due to mental status Constitutional Constitutional ED: Reports fever(s) and malaise Eyes Eyes: Denies change in vision ENT ENT ED: Denies ear pain or sore throat Cardiovascular Cardiovascular: Denies chest pain or palpitations Respiratory/Chest Respiratory/Chest: Reports cough; Denies dyspnea Gastrointestinal Gastrointestinal: Reports abdominal pain and constipation; Denies melena, nausea or vomiting Musculoskeletal Musculoskeletal: Denies back pain or neck pain Integumentary Denies rash Neurologic Neurologic: Reports weakness; Denies headache(s) EXAM Physical Exam Const Vital Signs: 09/20/23 18:49 09/20/23 19:31 09/20/23 19:47 Temperature 97.8 F Temperature Source Temporal Pulse Rate 105 H 96 Respiratory Rate 18 16 Blood Pressure 137/94 H 139/93 H Blood Pressure Mean 108 108 Pulse Ox 95 95 95 Oxygen Delivery Method Room Air Room Air Room Air 09/20/23 19:47 Temperature 98.9 F Temperature Source Oral Pulse Rate 97 Respiratory Rate 15 Blood Pressure 136/93 H Blood Pressure Mean 107 Pulse Ox 96 Oxygen Delivery Method Room Air Positive well nourished, well developed and cachectic General Appearance ED: well developed, cachectic and NAD Nutritional Appearance: cachectic HEENT Reports moist mucous membranes HEENT Narrative: ASSOCIATE SOFTWARE DEVELOPER shunt along with distribution all the way to the right upper quadrant benign nontender without any overlying erythema normocephalic and atraumatic Eyes PERRL and EOMs intact bilaterally Neck full ROM, no lymphadenopathy and supple Resp normal respiratory effort and clear to auscultation bilaterally Cardio regular rate, regular rhythm and no murmurs Rate: Negative for tachycardic GI non-tender and non-distended Auscultation: normoactive bowel sounds Palpation: soft Narrative: Bowman catheter in place, cloudy yellow urine within the catheter without blood. No leakage around the catheter insertion site. Extremity normal to inspection General Extremety ED: Negative for edema, pulses abnormal or tenderness General Extremity: Negative for edema or pulses abnormal Neuro oriented x3 and CN's II-XII intact bilaterally Neuro Narrative: atrophy BLE Sensorium / Orientation: awake and alert Motor Exam: general weakness Psych mental status grossly normal Skin no rashes or lesions noted and no wounds MDM MDM MDM Narrative Medical decision making narrative: Patient's work-up indicates that he does have COVID-19, but he also appears to have a complicated urinary infection. Septic work-up was obtained including blood and urine cultures, and he was given empiric Rocephin 1 g IV. My concern is that he has a significant leukocytosis, suggesting that his fever is related to the urine infection and not necessarily COVID-19 which typically is not associated with an acute leukocytosis with a leftward shift like this patient has. His lactate is within normal limits, he is hyponatremic. He was initially given a 500 cc bolus of IV fluid, but given that his pressures are good and his vital signs are otherwise normal, we will continue the IV fluids at a slower rate. Given the leukocytosis and fever, supposing this is probably due to the UTI, will admit with IV antibiotics for now pending cultures. Does not technically meet criteria for sepsis and I do not think he needs to be in the ICU at this time. Lab Data Attestation: I reviewed the patient's lab results. Labs: Laboratory Results - last 24 hr 09/20/23 09/20/23 19:35 19:45 WBC 19.4 H RBC 4.35 L Hgb 12.3 L Hct 36.8 L MCV 84.6 MCH 28.3 MCHC 33.4 RDW Std Deviation 39.8 RDW Coeff of Frieda 12.9 Plt Count 366 MPV 9.7 Immature Gran % (Auto) 0.500 Neut % (Auto) 80.2 H Lymph % (Auto) 5.9 L Coryell % (Auto) 12.8 H Eos % (Auto) 0.4 Baso % (Auto) 0.2 Absolute Neuts (auto) 15.6 H Absolute Lymphs (auto) 1.14 Nucleated RBC % 0 Differential Comment SCANNED Diff Path Review March foll PT 14.5 INR 1.1 APTT 32.9 Sodium 124 L Potassium 3.6 Chloride 90 L Carbon Dioxide 27.0 Anion Gap 7 BUN 12 Creatinine 0.68 L Est GFR (MDRD) Af Amer 155 Est GFR (MDRD) Non-Af 128 BUN/Creatinine Ratio 17.6 Glucose 120 H Lactic Acid 0.9 Calcium 8.3 L Total Bilirubin 0.50 AST 11 L ALT 16 Alkaline Phosphatase 62 Total Protein 7.0 Albumin 3.0 L Globulin 4.0 Albumin/Globulin Ratio 0.8 L Urine Color Yellow Urine Clarity Cloudy Urine pH 7.0 Ur Specific [place] 1.010 Urine Protein 100 H Urine Glucose (UA) Normal Urine Ketones 15 H Urine Occult Blood 50 H Urine Nitrite Positive H Urine Bilirubin Negative Urine Urobilinogen Normal Ur Leukocyte Esterase 500 H Urine RBC 10-25 SEEN Urine WBC 25-50 SEEN Ur Squamous Epith Cells 0 SEEN Urine Bacteria 2+ Urine Mucus 0 SEEN Radiography Diagnostic Testing: Clinical Impression(s) from Imaging Studies Chest X-Ray 09/20/23 19:50 IMPRESSION: 1. No acute pathology in the chest. 2. Mild gaseous distention of bowel in the upper abdomen partially visualized. No discrete evidence of subdiaphragmatic air. Electronically Signed: Conor Carrasco DO at 20:06 EST , Rhythm Strip Rhythm Strip: Sinus Rhythm Rate: 95 Ectopy: None EKG Initial EKG: Attestation: I personally reviewed and interpreted this EKG as follows: Interpretation: Sinus Rhythm and No Acute Injury Pattern Management Discussion w/another healthcare provider: Hospitalist Discharge Plan Triage Chief Complaint: Complaint ED Provider: Bennett Olivarez Dx/Rx/DC Orders Clinical Impression: Complicated UTI (urinary tract infection), COVID-19, Acute hyponatremia, Leukocytosis Prescriptions: No Action baclofen 5 MG tablet 5 mg PO TID Patient Comments: Hold for sedation/lethargy metoclopramide HCl [Reglan] 5 mg tablet 5 mg PO Q6H 30 Days Qty: 120 0RF Linzess 290 mcg capsule 290 mcg PO DAILY omeprazole 20 mg capsule,delayed release(DR/EC) 20 mg PO DAILY Motegrity 2 mg tablet 2 mg PO DAILY tamsulosin 0.4 mg Capsule 0.4 mg PO 1730 Primary Care Provider: Lyndon Sanders Referrals: Lyndon Sanders MD [Primary Care Provider] - Disposition Disposition: Acute Care Hospital [facility]
--- OUTSIDE RECORDS SUMMARY | 2023-09-20 19:30 | XMS RPT_ITS | CCD ---
Author Name Unknown Address [address] [place] [address] Organization [facility] Care Team Providers Care Research Spec Name Role Phone Lyndon Estes MD Primary Care Provider [phone] Mikey DONOVAN, Traceyoxi Unavailable Mikey DONOVAN, Traceyoxi Unavailable Dr. Von Sanchez Attending Steffi vailable Laura, Dr. Von Dunbar Admitting Steffi vailable Patient, Unavailable Referring Unavailable Lyndon Estes MD Primary Care Provider Mikey DONOVAN, Traceyoxi Unavailable Mieky DONOVAN, Traceyoxmyriam Unavailable Landy TREJO, Katiana Unavailable Unavailable Adam TREJO, Giselle Unavailable Unavailable MARCELO PRINCE Attending Unavail able LYNDON ESTES Primary Care Unavailable Nayely Nazario Attending Unavailable LYNDON ESTES Primary Care Unavailable MILLIE CONNER Referring Unavailable LYNDON ESTES Primary Care Unavailable TERESITA REESE Attending Unavailable JIAN UGALDE Referring Unavaila ble LYNDON ESTES Primary Care Unavailable Muriel, Hemn Admitting Unavailable JUDAH CORRAL Attending Unavailable Juan Daniel WOLFF Attending Unavailable LYNDON ESTES Primary Care Unavailable LYNDON ESTES Referring Unavailable LYNDON ESTES Primary Care Unavailable LYNDON ESTES Attending Unavailable LYNDON ESTES Primary Care Unavailable LIZ VILLARREAL Attending Unavailable LYNDON ESTES Primary Care Unavailable LYNDON ESTES Primary Care Unavailable LYNDON ESTES Referring Unavailable LYNDON ESTES Primary Care Unavailable LIZ VILLARREAL Attending Unavailable LYNDON ESTES Primary Care Unavailable LYNDON ESTES Referring Unavailable LYNDON ESTES Primary Care Unavailable LYNDON ESTES Referring Unavailable LYNDON ESTES Primary Care Unavailable SELF Referring Unavailable LYNDON ESTES Attending Unavailable LYNDON ESTES Primary Care Unavailable LYNDON ESTES Attending Unavailable Allergies Allergy Classification Reported Allergen(s) Allergy Type Date of Onset Reaction(s) Facility (20 sources) Contrast media; Translations: [CONTRAST DYE] Drug Allergy 0 Anaphylaxis [facility] Work Phone: (20 sources) Nitrofurantoin; Translations: [NITROFURANTOIN MACROCRYSTALLINE ] Drug Allergy 0 GI Upset [facility] Work Phone: (20 sources) Nitrofurantoin; Translations: [NITROFURANTOIN] Drug Allergy 1 GI Upset [facility] (20 sources) Phenytoin; Translations: [PHENYTOIN] Drug Allergy 6 [facility] Work Phone: (20 sources) Fd And C Blue No.1; Translations: [FD AND C BLUE NO.1] Propensity to adverse reactions 6 [facility] Work Phone: (1 source) IODINATED CONTRAST MEDIA; Translations: [IODINATED CONTRAST MEDIA] Propensity to adverse reactions to drug (disorder) 1 [facility] Repository Medications Current Medications Medication Drug Class(es) Dates Sig (Normalized) Sig (Original) baclofen 5 mg oral tablet (20 sources) gamma-Aminobutyri c Acid-ergic Agonist Start: 08-03-2023 End: 09-05-2024 take 1 tablet by mouth three times daily baclofen 5 mg tablet Indications: Spina bifida with hydrocephalus, unspecified spinal region (HCC) Take 1 tablet by mouth three times a day. 270 Each 3 09/06/2023 09/05/2024 Active Completed/Discontinued Medications Medication Drug Class(es) Dates Sig (Normalized) Sig (Original) bisacodyl 10 mg rectal suppository (20 sources) Stimulant Laxative Start: 01-24-2022 End: 05-19-2022 bisacodyl (DULCOLAX) 10 mg supp Bisacodyl Active 10 MG RC NEEDED 0 January 24, 2022 10:15am OTC 0 01/24/2022 Active Problems Active Problems Problem Classification Problem Date Documented Da te Episodic/Chronic Allergic reactions (1 source) Radiographic dye allergy status; Translations: [Radiographic dye allergy status] Onset: 12-15-2022 Episodic Calculus of urinary tract (1 source) Urinary bladder stone; Translations: [Calculus in bladder] Episodic Digestive congenital anomalies (4 sources) Congenital redundant colon; Translations: [Other specified congenital malformations of intestine] Onset: 10-04-2022 Chronic Disorders of lipid metabolism (1 source) Hyperlipidemia, unspecified; Translations: [Hyperlipidemia, unspecified] Onset: 12-15-2022 Chronic Epilepsy; convulsions (1 source) Epilepsy, unspecified, not intractable, without status epilepticus; Translations: [Epilepsy, unsp, not intractable, without status epilepticus] Onset: 12-15-2022 Chronic Essential hypertension (1 source) Essential (primary) hypertension; Translations: [Essential (primary) hypertension] Onset: 12-15-2022 Chronic Genitourinary symptoms and ill-defined conditions (2 sources) Urinary catheter in situ; Translations: [Presence of urogenital implants] Chronic Hyperplasia of prostate (20 sources) Benign prostatic hypertrophy with outflow obstruction; Translations: [Benign prostatic hyperplasia with lower urinary tract symptoms] Onset: 08-29-2020 08-29-2020 Chronic Immunizations and screening for infectious disease (2 sources) Needs influenza immunization; Translations: [Encounter for immunization] Onset: 08-03-2023 Episodic Mycoses (1 source) Dermal mycosis; Translations: [Superficial mycosis, unspecified] Episodic Neoplasms of unspecified nature or uncertain behavior (1 source) Thrombocytosis; Translations: [Thrombocytosis] Onset: 08-03-2023 Chronic Neoplasms of unspecified nature or uncertain behavior (3 sources) Thrombocytosis; Translations: [Thrombocytosis] Episodic Nervous system congenital anomalies (20 sources) Congenital hydrocephalus; Translations: [Congenital hydrocephalus, unspecified] Onset: 02-02-2008 02-02-2008 Chronic Other aftercare (1 source) Other remote computer terminal operator (current) drug therapy; Translations: [Other remote computer terminal operator (current) drug therapy] Onset: 12-15-2022 Episodic Other diseases of bladder and urethra (20 sources) Neurogenic bladder; Translations: [Neuromuscular dysfunction of bladder, unspecified] Onset: 08-22-2018 08-22-2018 Chronic Other diseases of bladder and urethra (2 sources) Neuromuscular dysfunction of bladder, unspecified; Translations: [Neuromuscular dysfunction of bladder, unspecified] Onset: 12-15-2022 Chronic Other diseases of kidney and ureters (1 source) Renal impairment; Translations: [Disorder of kidney and ureter, unspecified] Episodic Other gastrointestinal disorders (5 sources) Chronic constipation; Translations: [Other constipation] Episodic Other gastrointestinal disorders (5 sources) Personal history of other diseases of the digestive system; Translations: [Personal history of other diseases of digestive system] Onset: 10-04-2022 Episodic Other gastrointestinal disorders (4 sources) Constipation, unspecified; Translations: [Constipation, unspecified] Onset: 12-11-2022 Episodic Other gastrointestinal disorders (1 source) Other megacolon; Translations: [Other megacolon] Onset: 12-15-2022 Episodic Other gastrointestinal disorders (2 sources) Constipation; Translations: [Constipation, unspecified] 06-13-2023 Episodic Other lower respiratory disease (2 sources) Chronic cough; Translations: [Chronic cough] Onset: 08-03-2023 08-03-2023 Episodic Other nervous system disorders (20 sources) Hydrocephalus; Translations: [Hydrocephalus, unspecified] Onset: 04-06-2021 04-06-2021 Chronic Other nervous system disorders (20 sources) H/O: major vascular surgery; Translations: [Presence of cerebrospinal fluid drainage device] Onset: 07-16-2022 Chronic Other nervous system disorders (1 source) Hydrocephalus, unspecified; Translations: [Hydrocephalus, unspecified type (HCC)] Onset: 04-06-2021 Chronic Other screening for suspected conditions (not mental disorders or infectious disease) (3 sources) Patient encounter status; Translations: [Encounter for screening for other disorder] Episodic Residual codes; unclassified (1 source) Other specified postprocedural states; Translations: [Other specified postprocedural states] Onset: 12-15-2022 Episodic Residual codes; unclassified (1 source) Acquired absence of other specified parts of digestive tract; Translations: [Acquired absence of other specified parts of digestive tract] Onset: 12-15-2022 Episodic Unclassified (20 sources) Myelodysplasia of spinal cord; Translations: [Myelodysplasia] Onset: 05-22-2013 05-22-2013 Unclassified (1 source) Contact with and (suspected) exposure to COVID-19; Translations: [Contact with and (suspected) exposure to COVID-19] Onset: 12-15-2022 Urinary tract infections (2 sources) Recurrent urinary tract infection; Translations: [Urinary tract infection, site not specified] Episodic Past or Other Problems Problem Classification Problem Date Documented Da te Episodic/Chronic Abdominal hernia (20 sources) Right inguinal hernia ; Translations: [Unilateral inguinal hernia, without obstruction or gangrene, not specified as recurrent] Onset: 04-06-2021 04-06-2021 Episodic Abdominal pain (1 source) Pelvic and perineal pain; Translations: [Suprapubic pressure] Onset: 05-20-2023 Episodic Complication of device; implant or graft (1 source) Unspecified complication of genitourinary prosthetic device, implant and graft, initial encounter; Translations: [Bowman catheter problem, initial encounter ([facility])] Onset: 05-20-2023 Episodic Fluid and electrolyte disorders (20 sources) Hyponatremia; Translations: [Hypo-osmolality and hyponatremia] Onset: 05-19-2023 Episodic Genitourinary symptoms and ill-defined conditions (20 sources) Retention of urine; Translations: [Retention of urine, unspecified] Onset: 04-06-2021 04-06-2021 Episodic Intestinal obstruction without hernia (20 sources) Small bowel obstruction; Translations: [Unspecified intestinal obstruction, unspecified as to partial versus complete obstruction] Onset: 04-14-2022 Episodic Malaise and fatigue (20 sources) Asthenia; Translations: [Weakness] Onset: 07-31-2015 07-31-2015 Episodic Nervous system congenital anomalies (1 source) Personal history of other specified (corrected) congenital malformations of nervous system and sense organs; Translations: [History of spina bifida] Onset: 05-20-2023 Episodic Other acquired deformities (20 sources) Acquired deformity of ankle AND/OR foot; Translations: [Unspecified acquired deformity of unspecified lower leg] Onset: 07-31-2015 07-31-2015 Episodic Other diseases of kidney and ureters (1 source) Disorder of kidney and ureter, unspecified; Translations: [Renal insufficiency] Onset: 05-19-2023 Episodic Other disorders of stomach and duodenum (2 sources) Gastroparesis; Translations: [Gastroparesis] Onset: 12-15-2022 Episodic Other disorders of stomach and duodenum (20 sources) Gastroparesis syndrome; Translations: [Gastroparesis] Onset: 05-19-2023 Episodic Other gastrointestinal disorders (1 source) Other constipation; Translations: [Chronic constipation] Onset: 10-04-2022 Episodic Other nervous system disorders (20 sources) Abnormal gait; Translations: [Unspecified abnormalities of gait and mobility] Onset: 07-31-2015 07-31-2015 Episodic Results Test Name Value Interpretation Reference Range Facil ity Vital Signs Date Time Vital Sign Value Performing Clinician Terrii lity 08-03-2023 15:04-0400 Diastolic blood pressure 88 mm[Hg] Lyndon Estes MD Work Phone: [facility] 08-03-2023 15:04-0400 Heart rate 84 /min Lyndon Estes MD Work Phone: [facility] 08-03-2023 15:04-0400 SaO2% (BldA) [Mass fraction] 97 % Lyndon Estes MD Work Phone: [facility] 08-03-2023 15:04-0400 Systolic blood pressure 130 mm[Hg] Lynodn Estes MD Work Phone: [facility] 06-13-2023 15:30-0400 Body height 160 cm Liz Villarreal PA-C Work Phone: [facility] 06-13-2023 15:30-0400 Body temperature 97 [degF] Liz Bells PA-C Work Phone: [facility] 06-13-2023 15:30-0400 Body weight 56.25 kg Liz Bells PA-C Work Phone: [facility] 06-13-2023 15:30-0400 Diastolic blood pressure 89 mm[Hg] Liz Bells PA-C Work Phone: [facility] 06-13-2023 15:30-0400 Heart rate 80 /min Liz Villarreal PA-C Work Phone: [facility] 06-13-2023 15:30-0400 SaO2% (BldA) [Mass fraction] 98 % Liz LEE-Anyi Work Phone: [facility] 06-13-2023 15:30-0400 Systolic blood pressure 125 mm[Hg] Liz Villarreal PA-C Work Phone: [facility] 05-19-2023 15:30-0400 Body height 160 cm Lyndon Estes MD Work Phone: [facility] 05-19-2023 15:30-0400 Body weight 56.25 kg Lyndon Estes MD Work Phone: [facility] 05-19-2023 15:30-0400 Diastolic blood pressure 64 mm[Hg] Lyndon Estes MD Work Phone: [facility] 05-19-2023 15:30-0400 Heart rate 94 /min Lyndon Estes MD Work Phone: [facility] 05-19-2023 15:30-0400 SaO2% (BldA) [Mass fraction] 96 % Lyndon Estes MD Work Phone: [facility] 05-19-2023 15:30-0400 Systolic blood pressure 108 mm[Hg] Lyndon Estes MD Work Phone: [facility] 10-12-2022 12:36-0500 Diastolic blood pressure 89 mm[Hg] Marcelo Prince MD Work Phone: [facility] 10-12-2022 12:36-0500 Heart rate 83 /min Marcelo Prince MD Work Phone: [facility] 10-12-2022 12:36-0500 Systolic blood pressure 131 mm[Hg] Marcelo Prince MD Work Phone: [facility] 10-04-2022 16:31-0500 Body height 160 cm Nayely Nazario MD Work Phone: [facility] 10-04-2022 16:31-0500 Body weight 53.98 kg Nayely Nazario MD Work Phone: [facility] 10-04-2022 16:31-0500 Diastolic blood pressure 92 mm[Hg] Nayely Nazario MD Work Phone: [facility] 10-04-2022 16:31-0500 Heart rate 89 /min Nayely Nazario MD Work Phone: [facility] 10-04-2022 16:31-0500 SaO2% (BldA) [Mass fraction] 100 % Nayely Nazario MD Work Phone: [facility] 10-04-2022 16:31-0500 Systolic blood pressure 145 mm[Hg] Nayely Nazario MD Work Phone: [facility] 08-24-2022 14:32-0400 Diastolic blood pressure 80 mm[Hg] Lyndon Estes MD Work Phone: [facility] 08-24-2022 14:32-0400 Systolic blood pressure 126 mm[Hg] Lyndon Estes MD Work Phone: [facility] 08-24-2022 14:05-0400 Body height 157.5 cm Lyndon Estes MD Work Phone: [facility] 08-24-2022 14:05-0400 Body weight 53.98 kg Lyndon Estes MD Work Phone: [facility] 08-24-2022 14:05-0400 Heart rate 94 /min Lyndon Estes MD Work Phone: [facility] 08-24-2022 14:05-0400 SaO2% (BldA) [Mass fraction] 97 % Lyndon Estes MD Work Phone: [facility] 07-30-2022 15:57-0400 Diastolic blood pressure 86 mm[Hg] Lyndon Estes MD Work Phone: [facility] 07-30-2022 15:57-0400 Systolic blood pressure 130 mm[Hg] Lyndon Estes MD Work Phone: [facility] 07-30-2022 15:36-0400 Body height 157.5 cm Lyndon Estes MD Work Phone: [facility] 07-30-2022 15:36-0400 Body weight 53.98 kg Lyndon Estes MD Work Phone: [facility] 07-30-2022 15:36-0400 Heart rate 97 /min Lyndon Estes MD Work Phone: [facility] 07-30-2022 15:36-0400 SaO2% (BldA) [Mass fraction] 97 % Lyndon Estes MD Work Phone: [facility] 07-16-2022 10:52-0400 Diastolic blood pressure 84 mm[Hg] Julita Sofia DO Work Phone: [facility] 07-16-2022 10:52-0400 Heart rate 87 /min Julita Sofia DO Work Phone: [facility] 07-16-2022 10:52-0400 Systolic blood pressure 153 mm[Hg] Julita Sofia DO Work Phone: [facility] 06-11-2022 16:25-0400 Body height 157.5 cm Millie Kubena FINANCIAL WRITER.CN P Work Phone: [facility] 06-11-2022 16:25-0400 Body temperature 97.39 [degF] Millie Kubena FINANCIAL WRITER.CN P Work Phone: [facility] 06-11-2022 16:25-0400 Body weight 55.79 kg Millie Kubena FINANCIAL WRITER.CN P Work Phone: [facility] 06-11-2022 16:25-0400 Diastolic blood pressure 87 mm[Hg] Millie Kubena FINANCIAL WRITER.[employer] Work Phone: [facility] 06-11-2022 16:25-0400 Heart rate 76 /min Millie Kubena FINANCIAL WRITER.CN P Work Phone: [facility] 06-11-2022 16:25-0400 SaO2% (BldA) [Mass fraction] 99 % Millie Kubena FINANCIAL WRITER.[employer] Work Phone: [facility] 06-11-2022 16:25-0400 Systolic blood pressure 136 mm[Hg] Millie Conner APRN.[employer] Work Phone: [facility] 02-17-2022 09:55-0400 Diastolic blood pressure 88 mm[Hg] Marcelo Prince MD Work Phone: [facility] 02-17-2022 09:55-0400 Heart rate 82 /min Marcelo Prince MD Work Phone: [facility] 02-17-2022 09:55-0400 Systolic blood pressure 128 mm[Hg] Marcelo Prince MD Work Phone: [facility] 02-02-2022 13:40-0400 Body temperature 97.9 [degF] PHUONG Eller MD Work Phone: [facility] 02-02-2022 13:40-0400 Diastolic blood pressure 91 mm[Hg] PHUONG Eller MD Work Phone: [facility] 02-02-2022 13:40-0400 Heart rate 83 /min PHUONG Eller MD Work Phone: [facility] 02-02-2022 13:40-0400 Respiratory rate 20 /min PHUONG Eller MD Work Phone: [facility] 02-02-2022 13:40-0400 SaO2% (BldA) [Mass fraction] 100 % PHUONG Eller MD Work Phone: [facility] 02-02-2022 13:40-0400 Systolic blood pressure 145 mm[Hg] PHUONG Eller MD Work Phone: [facility] Encounters Encounter Date Encounter Type Care Provider Facility Start: 09-06-2023 Denise Mir APRN.[employer] Work Phone: [facility] Procedures Date Procedure Procedure Detail Performing Clinician Start: 08-03-2023 INFLUENZA VACCINE, A GE 6 MO - 64 YR, QUADRIVALENT (AFLURIA, FLULAVAL, FLUZONE) Lynodn Estes MD Work Phone: Start: 04-06-2023 Antibody screen JOSE PRINCE Plan of Treatment Date Care Activity Detail Author Start: 01-28-2028 PROSTATE CANCER SCRE ENING DISCUSSION PROSTATE CANCER SCREENING DISCUSSION [facility] Start: 08-03-2026 Diabetes Screening Diabetes Screenin [facility] Start: 05-26-2026 DIABETES SCREEN DIABETES SCREEN [facility] Start: 05-26-2026 Diabetes Screening Diabetes Screenin g [facility] Start: 05-20-2026 DIABETES SCREEN DIABETES SCREEN [facility] Start: 05-19-2026 DIABETES SCREEN DIABETES SCREEN [facility] Start: 04-06-2026 DIABETES SCREEN DIABETES SCREEN [facility] Start: 01-27-2026 DIABETES SCREEN DIABETES SCREEN [facility] Start: 09-11-2025 Lipid 1996 panel - S yue or Plasma Lipid Screening [facility] Start: 09-11-2025 LIPID SCREEN LIPID SCREEN [facility] Start: 09-03-2025 DIABETES SCREEN DIABETES SCREEN [facility] Start: 08-24-2025 DIABETES SCREEN DIABETES SCREEN [facility] Start: 07-30-2025 DIABETES SCREEN DIABETES SCREEN [facility] Start: 07-30-2025 Urine microalbumin profile [facility] Start: 04-19-2025 DIABETES SCREEN DIABETES SCREEN [facility] Start: 01-27-2025 DIABETES SCREEN DIABETES SCREEN [facility] Start: 01-28-2024 HEPATITIS C SCREENING HEPATITIS C SC ELLEN [facility] Immunizations Immunization Date Immunization Notes Care Provider Liliya hartman 08-03-2023 influenza, injectabl e, quadrivalent, contains preservative Lyndon Estes MD Work Phone: [facility] 07-30-2022 influenza, injectabl e, quadrivalent, contains preservative Lyndon Estes MD Work Phone: [facility] 04-19-2022 COVID-19 vaccine, ag e 12+ yr ([employer] - [facility]) Katiana Loera LPN Work Phone: [facility] 07-21-2021 influenza, injectabl e, quadrivalent, contains preservative PHUONG Eller MD Work Phone: [facility] 09-11-2020 influenza, injectabl e, quadrivalent, contains preservative PHUONG Eller MD Work Phone: [facility] 07-30-2015 tetanus toxoid, redu yong diphtheria toxoid, and acellular pertussis vaccine, adsorbed PHUONG Eller MD Work Phone: [facility] Payers Date Payer Category Payer Medicaid [employer] [id number] 2019-Present [phone] [address] [place] [address] Medicaid [id number] 2019 Medicaid [employer] [id number] 2019-Present [phone] [address] [place] [address] Medicaid [id number] 2019 Unknown ANTHEM BLUE CROS S AND BLUE SHIELD ANTHEM MEDIBLUE O [id number] 2019-Present [phone] [id number] [id number] 2019 Unknown ANTHEM BLUE CROS S AND BLUE SHIELD ANTHEM MEDIBLUE O [id number] 2019-Present [phone] [address] [facility] [id number] 2019 Unknown [id number] 2019 Unknown [id number] 1965 Unknown [id number] Social History Date Type Detail Facility Start: 05-23-2013 Tobacco smoking stat us NHIS Never smoked tobacco [facility] Start: 02-02-2022 End: 08-22-2023 Alcohol intake Current non-drinker of alcohol (finding) [facility] Start: 1965 Sex Assigned At Not on file [facility] Start: 01-23-2022 End: 10-12-2022 Exposure to SARS-CoV-2 (event) Not sure [facility] Start: 02-23-2022 End: 03-05-2022 Exposure to SARS-CoV-2 (event) Unable to assess [facility] Start: 04-14-2022 History SDOH Financial 5 [facility] Start: 04-14-2022 End: 04-07-2023 History SDOH Food Worry 1 [facility] Start: 04-14-2022 End: 04-07-2023 History SDOH Transport Med 2 [facility] Start: 05-23-2013 Tobacco use and exposure Smokeless tobacco non-user [facility] Start: 04-14-2023 End: 05-20-2023 History of Social function [facility] Work Phone: Start: 04-14-2023 End: 05-20-2023 Tobacco use panel [facility] Work Phone: Adult Depression Screening Assessment 0 [facility] Work Phone: (I/We) worried wheth er (my/our) food would run out before (I/we) got money to buy more. Never true [facility] In the past 12 month s, was there a time when you were not able to pay the mortgage or rent on time? No [facility] Work Phone: Clinical Notes 02-02-2008 to 09-06-2023 Telephone Encounter - Felicita Kennedy LPN - 09/06/2023 12:00 PM EDTTelephone Encounter - Mabel Lopez LPN - 09/05/2023 9:42 AM EDTTelephone Encounter - Laura Colon - 08/16/2023 10:43 AM EDT Note Date & Type Note Facility 09-06-2023 Miscellaneous Notes Patient has been identified by name and date of : Yes, Provider Yvette Mir Parent/Guardian phones for refill(s): Requested Prescriptions Pending Prescriptions Disp Refills baclofen 5 mg tablet 270 Each 3 Sig: Take 1 tablet by mouth three times a day. Date of last office visit in primary care: 08/22/2023 Date of next office visit in primary care: 09/14/2023 Last 2 Encounter Wt Readings: Date: Wt: 06/13/2023 56.2 kg (124 lb) 05/20/2023 56.2 kg (124 lb) Please advise. Thank you. Felicita Kennedy LPN. documented in this encounter [facility] 09-05-2023 Miscellaneous Notes Faxed signed order to [employer] for urological supplies. Mabel Lopez LPN documented in this encounter [facility] 08-22-2023 Note HNO ID: [id number] Author: Juan Daniel Wolff PA-C Service: ? Author Type: Physician Wig Stylist Type: Progress Notes Filed: 08/22/2023 8:46 PM Note Text: 57 year old male [place] with spina bfida, hydrocephallus, brain shunt.c/o Hospital discharge follow up Facility [facility] Date of admission 08/09/2023 Date of discharge 08/15/2023 Discharge diagnoses: 1. Small bowel obstruction acute 2. Leukocytosis 3. Hyponatremia 4. Hypokalemia Medication reconciliation: Continue: Baclofen 5 mg p.o. 3 times daily muscle spasm Metoclopramide HCl 5 mg p.o. every 6 hours x30 days, #120/0 Linaclotide 290 mcg capsule p.o. daily IBS Omeprazole [address] daily AC Prucalopride 2 mg p.o. daily chronic constipation Tamsulosin 0.4 mg p.o. daily prostate Hospital course, admitted to the emergency department with acute abdominal pain, vomiting and abdominal distention. Similar episodes in the past but this time was worse. In the ED imaging demonstrated evidence of small bowel obstruction with significant distention of the stomach, small bowel with distal transition. NG tube inserted for decompression which was successful. Patient has presence of SUSPECT ARTIST shunt which made concerns for surgical evaluation. Patient was transferred to [facility], initially kept n.p.o. MDM patient was admitted to [facility] because no bed was available at [facility]. Advance to transitional diet where he also tolerated and did well. Date of discharge 08/15/2023 patient tolerated breakfast, transitional diet, remained stable, was discharged home. Discharge weight 125 pounds, BMI 22.1 Discharge labs WBC 6.7-Hgb 11.3-HCT 34.2-PLT 378 NA 136-CL 106-K3.0-CO2 23.0-BUN 3-CRE 0.46-GLU 108 C/o clear rhinorrhea, cough, irritation posterior pharnyx in the hospital. Used Chlorseptic spray. Appetite pretty good. Bowels moving daily, glycerin suppository and tap water enema Has permanent indwelling bowman No cough currently, occurs at night Walking 20-30 feet with quad canes. Follows GI [facility] HISTORIES FAMILY HISTORY Problem Relation Age of Onset Allergies Father Stroke Other Arthritis Other Cancer Brother lung cancer Asthma Sister other (head injury) Sister PAST MEDICAL HISTORY Diagnosis Date Bowel dysfunction Constipation Hydrocephalus (HCC) Inguinal hernia left - imaging at [facility] Sleep apnea Spina bifida (HCC) Urinary retention PAST SURGICAL HISTORY Procedure Laterality Date CRTJ SHUNT [id number] TERMINUS EGD W/O [facility] SPEC VARICIES INJ 08/06/2021 PAST SURGICAL HISTORY OF repair of hamstring Social History Tobacco Use Smoking status: Never Smokeless tobacco: Never Substance Use Topics Alcohol use: No Drug use: No ACTIVE PROBLEM LIST Congenital Hydrocephalus (Hcc) Myelodysplasia Deformity of Ankle and Foot, Acquired Weakness Abnormality of Gait Spina Bifida (Hcc) Neurogenic Bladder Benign Prostatic Hyperplasia With Urinary Retention Right Inguinal Hernia Hydrocephalus (Hcc) Urinary Retention History of Brain Shunt Gastroparesis Acute Pseudo-Obstruction of Bowel Hypokalemia Current Outpatient Medications Medication Sig Dispense Refill metoclopramide HCl (REGLAN) 5 mg tablet Take 1 po up to tid prn constipation 10 tablet 2 baclofen 5 mg tablet Take 1 tablet by mouth three times daily. 270 Each 3 omeprazole (PRILOSEC) 20 mg capsule Take 1 capsule by mouth daily before breakfast. 1/2 hr before meal. 30 capsule 5 linaCLOtide (LINZESS) 290 mcg capsule Take 1 po qd 90 capsule 2 MOTEGRITY 2 mg tab tablet TAKE 1 TABLET BY MOUTH EVERY DAY 30 tablet 3 bisacodyl (DULCOLAX) 10 mg supp Bisacodyl Active 10 MG RC NEEDED 0 January 24, 2022 10:15am OTC No current facility-administered medications for this visit. Colorectal Cancer Screening due on 03/27/2022 Covid-19 Vaccine(4 - Moderna series) due on 06/14/2022 EXAM: BP 132/82 Pulse 104 Resp 16 SpO2 98% Pleasant adult man with spina bifida, communicating clearly in no acute distress. Alert and oriented all spheres. Normal affect and cognition. Speech normal. No deficits to learning or comprehension. Skin warm, dry, pink to lips and nailbeds. Normal turgor. Respirations regular and unlabored. HEENT: NCAT. No scleral icterus or conjunctival injection. TM's clear. Nose and oropharynx free from injection or lesion. Oral membranes moist and pink. Mild gingival erythema. No cervical lymph nodes. Thyroid non-tender, no masses, or enlargement. Carotids pulses 2+/4+ without bruits. No JVD with HOB at 30 degrees. Chest is normal shape. Lungs are clear to all zelaya with good air exchange through out. HRRR without murmur or gallop. No lifts, heaves, or rubs. Abd soft, active bowels, nontender. Active bowel sounds. Extrem: no clubbing or cyanosis. Edema: none. Extremities atrophic are warm and pink with prompt capillary refill. ASSESSMENT/PLAN: 1. Hospital discharge follow-up - ICD9: V67.59, ICD10: (more content not included)... [facility] 08-19-2023 Miscellaneous Notes Thanks for the update. Spoke with sister. Patient doing well at this time. Reviewed using Motegrity & Linzess as his regular medications. May add Reglan sparingly. Reviewed that walking and abdominal massage are very safe ways to encourage his bowels. She hasn't yet implemented them d/t her own health issues but intends to put more effort into adding this to his regimen. Sister & POA Diaz) called. Says Jian was admitted on , and D/C yesterday at [facility] for small bowel obstruction issues. Says he was doing well on the Motegrity. Since, D/C, advised to consult for next plan. Should he take the Reglan in addition to the Motegrity? Also, follow-up?? Believes he overdue for a EGD (high risk)? Please advise. documented in this encounter [facility] 08-18-2023 Note Patient Outreach (FA MPWS) JIAN FUENTES ([id number]) 1965 M Date Time Provider Department 08/18/23 KASSY KYLE During your visit today, we recorded the following information about you: Kassy Kyle Ma 08/19/2023 8:19 AM Signed TRANSITION CARE MANAGEMENT (TCM) INITIAL CONTACT [employer] Outreach Provider Action/FYI: Left message for Darrion deng, to return call Initial contact with patient post discharge, spoke to . Patient identified by name and . TRANSITION CARE MANAGEMENT INITIAL OUTREACH DOCUMENTATION: Date of Outreach: 08/18/2023 Outreach Attempt 1: Contact Not Made Date of Discharge 08/15/2023 Some recent data might be hidden SUMMARY: -Pt discharged from [facility] on 08/15/23. -Admitted for: Small Bowel Obstruction Do you have a hospital follow up appointment with your PCP? Appointment on with 08/22/23 with Brayan Wolff MEDICATIONS: Many patients have questions or concerns about their medications once they are home. Were you prescribed any new medications? Yes waiting on air personality from [facility] on a medication Were you told to hold any medications? No Were any of your medications discontinued? No Do you have any questions about getting or taking your medications? No Your discharge instructions/After visit Summary (AVS) are important in guiding you through the recovery process. Is there anything I might help you understand? waiting for call back from [facility] [place] Do you have all the necessary equipment and supplies at home? No, follow site specific process to secure durable medical equipment and/or supplies for the patient, handoff to RN/BEAMER OPERATOR, or LIP Medical records from recent hospitalization: [facility] Allergies As of Date: 08/18/2023 Noted Allergy Reaction CONTRAST DYE 10/29/2010 10 - Anaphylaxis FD AND C BLUE NO.1 07/29/2006 IODINATED CONTRAST MEDIA 12/11/2020 10 - Anaphylaxis MACRODANTIN (NITROFURANTOIN MACRO*10/29/2010 8 - GI Upset NITROFURANTOIN 12/11/2020 8 - GI Upset PHENYTOIN 07/29/2006 Date Reviewed: 08/03/2023 Reviewed by: Kaylee Greenberg LPN - Fully Assessed Reason for Visit: Transition Of Care [4074] Cmt: [facility] 08/09/23-08/15/23 Prescriptions as of 08/19/2023 - metoclopramide HCl (REGLAN) 5 mg tablet Take 1 po up to tid prn constipation - baclofen 5 mg tablet Take 1 tablet by mouth three times daily. - omeprazole (PRILOSEC) 20 mg capsule Take 1 capsule by mouth daily before breakfast. 1/2 hr before meal. - linaCLOtide (LINZESS) 290 mcg capsule Take 1 po qd - MOTEGRITY 2 mg tab tablet TAKE 1 TABLET BY MOUTH EVERY DAY - bisacodyl (DULCOLAX) 10 mg supp Bisacodyl Active 10 MG RC NEEDED 0 January 24, 2022 10:15am OTC Meds Comments as of 11/01/2020: 11/01/2020 Pt's sister stating pt not taking Cipro at this time, completed course of atb. Matt Gutierrez Problem List As Of Date 08/18/2023 Noted Resolved Congenital hydrocephalus (HCC) [Q03.9] 02/02/2008 CP (CEREBRAL PALSY - INFANTILE) HEMIPLEGIA, CON*02/02/2008 05/22/2013 Myelodysplasia [SDA8392] 05/22/2013 Deformity of ankle and foot, acquired [M21.969] 07/31/2015 Weakness [R53.1] 07/31/2015 Abnormality of gait [R26.9] 07/31/2015 Spina bifida (HCC) [Q05.9] 08/22/2018 Neurogenic bladder [N31.9] 08/22/2018 Benign prostatic hyperplasia with urinary reten*08/29/2020 Right inguinal hernia [K40.90] 04/06/2021 Hydrocephalus (HCC) [G91.9] 04/06/2021 Urinary retention [R33.9] 04/06/2021 SBO (small bowel obstruction) (HCC) [K56.609] 04/14/2022 05/19/2023 History of brain shunt [Z98.2] 07/16/2022 Small bowel obstruction (HCC) [K56.609] 04/03/2023 04/06/2023 Gastroparesis [K31.84] 05/19/2023 Acute pseudo-obstruction of bowel [K59.89] 05/19/2023 Hypokalemia [E87.6] 05/19/2023 Encounter Status:Closed by KASSY KYLE MA on 08/19/23 [facility] 08-18-2023 Note HNO ID: [id number] Author: Kassy Kyle Ma Service: ? Author Type: ? Type: Progress Notes Filed: 08/19/2023 8:19 AM Note Text: TRANSITION CARE MANAGEMENT (TCM) INITIAL CONTACT [employer] Out[facility] Provider Action/FYI: Left message for Darrion deng, to return call Initial contact with patient post discharge, spoke to sister. Patient identified by name and . TRANSITION CARE MANAGEMENT INITIAL OUTREACH DOCUMENTATION: Date of Outreach: 08/18/2023 Outreach Attempt 1: Contact Not Made Date of Discharge 08/15/2023 Some recent data might be hidden SUMMARY: -Pt discharged from [facility] on 08/15/23. -Admitted for: Small Bowel Obstruction Do you have a hospital follow up appointment with your PCP? Appointment on with 08/22/23 with Brayan Wolff MEDICATIONS: Many patients have questions or concerns about their medications once they are home. Were you prescribed any new medications? Yes waiting on air personality from [facility] on a medication Were you told to hold any medications? No Were any of your medications discontinued? No Do you have any questions about getting or taking your medications? No Your discharge instructions/After visit Summary (AVS) are important in guiding you through the recovery process. Is there anything I might help you understand? waiting for call back from main [facility] Do you have all the necessary equipment and supplies at home? No, follow site specific process to secure durable medical equipment and/or supplies for the patient, handoff to RN/BEAMER OPERATOR, or LIP Medical records from recent hospitalization: [facility] 08-18-2023 History of Presen t illness Narrative TRANSITION CARE MANAGEMENT (TCM) INITIAL CONTACT [employer] [facility] Provider Action/FYI: Left message for Darrion deng, to return call Initial contact with patient post discharge, spoke to sister. Patient identified by name and . TRANSITION CARE MANAGEMENT INITIAL OUTREACH DOCUMENTATION: Date of Outreach: 08/18/2023 Outreach Attempt 1: Contact Not Made Date of Discharge 08/15/2023 Some recent data might be hidden SUMMARY: -Pt discharged from [facility] on 08/15/23. -Admitted for: Small Bowel Obstruction Do you have a hospital follow up appointment with your PCP? Appointment on with 08/22/23 with Brayan Wolff MEDICATIONS: Many patients have questions or concerns about their medications once they are home. Were you prescribed any new medications? Yes waiting on air personality from [facility] on a medication Were you told to hold any medications? No Were any of your medications discontinued? No Do you have any questions about getting or taking your medications? No Your discharge instructions/After visit Summary (AVS) are important in guiding you through the recovery process. Is there anything I might help you understand? [facility] Do you have all the necessary equipment and supplies at home? No, follow site specific process to secure durable medical equipment and/or supplies for the patient, handoff to RN/BEAMER OPERATOR, or LIP Medical records from recent hospitalization: [facility] documented in this encounter [facility] 08-15-2023 Miscellaneous Notes FYI: Elizabeth vitale [employer] Mixer with [employer] calls to report that pt is getting discharged today from [facility]. Pt was dx with a small bowel obstruction which has been resolved. Lily Noonan LPN [facility] calls back to let provider know that patient is currently at [facility] ER for bowel obstruction. Catheter has been changed in ER. Christiano reports patient is going to be a transfer to [facility]. Christiano will call back for resumption of care orders once released from hospital. Daniela Nelson RN Christian[facility] from [facility] Home Health calling time for recert for monthly bowman catheter change, every month x 2 starting in August, need new verbal order and for Urine and culture order. Patient sister has been irrigating catheter due to lots of sediment and clogging issues, changing catheter today while he is there, is a week early for changing. Pending orders needs diagnosis. Please advise documented in this encounter [facility] 08-11-2023 Miscellaneous Notes Spoke with Jian Fuentes ( sister Darrion)on August 11, 2023. Patient Update - Darrion stated and informed of patient status Admitted in [facility] since TuesdayAugust 08 with NG Tube with drainage of 500-1000 cc daily . Waiting on a Hospital bed at [facility] per patients request. Ms. Verdugo was made aware that Liz was out of the office until Aug.15 . Discussed while her brother (patient) was admitted into the hospital at [facility] he would be under the Physicians at the hospital care plan and treatment plan until discharge . Ms. Verdugo verbalized understanding. -Maryan Juarez LPN Sis (Darrion) called. Says Jian will be admitted at [facility], but he's waiting on a bed right now. States the Motegrity worked well for 3 months, until now. Symptoms / details No pain nor nausea; more so off/on ache He has the symptoms of a ?? bowel obstruction, which resolve in the past, but doesn't seem to be now. He has a NG Tube, and has a large amount of drainage, which often indicates a blockage. Is there another facility she can take him to? Says he also has AV Shunt that would require a Neuro MD as well. Please advise. documented in this encounter [facility] 08-05-2023 Miscellaneous Notes Talked to patients sister and she understands he needs to drink less pain water and moire electrolytes Ericka Rubin . Sodium is low. Are they watching his fluid intake. Again, limit plain water and use electrolyte drinks etc for now. Recheck bmp in a few weeks. documented in this encounter [facility] 08-03-2023 Note HNO ID: [id number] Author: Lyndon Estes MD Service: ? Author Type: Physician Type: Progress Notes Filed: 08/03/2023 5:47 PM Note Text: Patient presents with: 6 Month Exam HPI: Patient presents today for office visit for for follow up. Is doing better. The combination of the linzess and motegrity has helped. Bowels are moving better. Appetite is stable. They would like his urine checked. Has indwelling bowman. No fever or chills. No behavioral changes. No hematuria. Has a chronic cough. Worse when lying flat. Is worse over the last year. Has had chest xray. MEDICATIONS: Current Outpatient Medications Medication Sig linaCLOtide (LINZESS) 290 mcg capsule Take 1 po qd MOTEGRITY 2 mg tab tablet TAKE 1 TABLET BY MOUTH EVERY DAY bisacodyl (DULCOLAX) 10 mg supp Bisacodyl Active 10 MG RC NEEDED 0 January 24, 2022 10:15am OTC No current facility-administered medications for this visit. ALLERGIES: ALLERGIES Allergen Reactions Contrast Dye Anaphylaxis Fd And C Blue No.1 Iodinated Contrast * Anaphylaxis Macrodantin [Nitrof* GI Upset Nitrofurantoin GI Upset Phenytoin PAST MEDICAL HISTORY Diagnosis Date Bowel dysfunction Constipation Hydrocephalus (HCC) Inguinal hernia left - imaging at [facility] Sleep apnea Spina bifida (HCC) Urinary retention PAST SURGICAL HISTORY Procedure Laterality Date CRTJ SHUNT [id number] TERMINUS EGD W/O BRSH SPEC VARICIES INJ 08/06/2021 PAST SURGICAL HISTORY OF repair of hamstring FAMILY HISTORY Problem Relation Age of Onset Allergies Father Stroke Other Arthritis Other Cancer Brother lung cancer Asthma Sister other (head injury) Sister Social History Tobacco Use Smoking status: Never Smokeless tobacco: Never Substance Use Topics Alcohol use: No Drug use: No Reviewed current medications, allergies, past medical history, surgical history, family history and social history today. REVIEW OF SYSTEMS All other reviewed and negative other than HPI. VITALS: BP 130/88 Pulse 84 SpO2 97% Last 4 Encounter Wt Readings: Date: Wt: 06/13/2023 56.2 kg (124 lb) 05/20/2023 56.2 kg (124 lb) 05/20/2023 56.2 kg (124 lb) 05/19/2023 56.2 kg (124 lb) PHYSICAL EXAMINATION: General appearance: Well appearing, alert, in no acute distress, well-hydrated, well nourished. Skin: Skin color, texture, turgor normal, no suspicious rashes or lesions Lungs: Lungs clear to auscultation. No wheezing, rhonchi, rales Heart: RRR without murmur, gallop, or rubs. No ectopy Abdomen: Normal abdominal exam, Abdomen soft, non-tender. Bowel sounds normal. No masses, organomegaly Extremities: No deformities, edema, skin discoloration, clubbing or cyanosis. Good capillary refill. Neuro: no neuro changes. ASSESSMENT/PLAN: 1. Hydrocephalus, unspecified type (HCC) - ICD9: 331.4, ICD10: G91.9 (primary diagnosis) Reminded to follow with neurology 2. Encounter for immunization - ICD9: V03.89, ICD10: Z23 - INFLUENZA VACCINE, AGE 6 MO - 64 YR, QUADRIVALENT (AFLURIA, FLULAVAL, FLUZONE) 3. Spina bifida with hydrocephalus, unspecified spinal region (HCC) - ICD9: 741.00, ICD10: Q05.4 - BACLOFEN 5 MG TABLET 4. Congenital hydrocephalus (HCC) - ICD9: 742.3, ICD10: Q03.9 - see neuro 5. Neurogenic bladder - ICD9: 596.54, ICD10: N31. - URINALYSIS, WITH MICROSCOPIC - URINE CULTURE - CONSULT TO NEUROLOGY 6. Gastroparesis - ICD9: 536.3, ICD10: K31.84 -doing better. 7. Chronic cough - ICD9: 786.2, ICD10: R05.3 - Discussed risks and benefits of new medication with the patient. Advised them to call if any side effects or questions. Keep follow up - SPIROMETRY WITH DILATOR IF OBSTRUCTED - LUNG DIFFUSION CAPACITY (DLCO) - OMEPRAZOLE 20 MG CAPSULE,DELAYED RELEASE 8. Dark urine - ICD9: 791.9, ICD10: R82.998 - check urine. 9. Hyponatremia - ICD9: 276.1, ICD10: E87. - COMP METABOLIC PANEL 10. Urinary retention - ICD9: 788.20, ICD10: R33.9 11. Hypokalemia - ICD9: 276.8, ICD10: E87.6 - COMP METABOLIC PANEL 12. Thrombocytosis - ICD9: 238.71, ICD10: D75.839 - CBC + DIFF Lyndon Estes RTO in six weeks and prn. [facility] 08-03-2023 History of Presen t illness Narrative Patient presents with: 6 Month Exam HPI: Patient presents today for office visit for for follow up. Is doing better. The combination of the linzess and motegrity has helped. Bowels are moving better. Appetite is stable. They would like his urine checked. Has indwelling bowman. No fever or chills. No behavioral changes. No hematuria. Has a chronic cough. Worse when lying flat. Is worse over the last year. Has had chest xray. MEDICATIONS: Current Outpatient Medications Medication Sig linaCLOtide (LINZESS) 290 mcg capsule Take 1 po qd MOTEGRITY 2 mg tab tablet TAKE 1 TABLET BY MOUTH EVERY DAY bisacodyl (DULCOLAX) 10 mg supp Bisacodyl Active 10 MG RC NEEDED 0 January 24, 2022 10:15am OTC No current facility-administered medications for this visit. ALLERGIES: ALLERGIES Allergen Reactions Contrast Dye Anaphylaxis Fd And C Blue No.1 Iodinated Contrast * Anaphylaxis Macrodantin [Nitrof* GI Upset Nitrofurantoin GI Upset Phenytoin PAST MEDICAL HISTORY Diagnosis Date Bowel dysfunction Constipation Hydrocephalus (HCC) Inguinal hernia left - imaging at [facility] Sleep apnea Spina bifida (HCC) Urinary retention PAST SURGICAL HISTORY Procedure Laterality Date CRTJ SHUNT [id number] TERMINUS EGD W/O BRSH SPEC VARICIES INJ 08/06/2021 PAST SURGICAL HISTORY OF repair of hamstring FAMILY HISTORY Problem Relation Age of Onset Allergies Father Stroke Other Arthritis Other Cancer Brother lung cancer Asthma Sister other (head injury) Sister Social History Tobacco Use Smoking status: Never Smokeless tobacco: Never Substance Use Topics Alcohol use: No Drug use: No Reviewed current medications, allergies, past medical history, surgical history, family history and social history today. REVIEW OF SYSTEMS All other reviewed and negative other than HPI. VITALS: BP 130/88 Pulse 84 SpO2 97% Last 4 Encounter Wt Readings: Date: Wt: 06/13/2023 56.2 kg (124 lb) 05/20/2023 56.2 kg (124 lb) 05/20/2023 56.2 kg (124 lb) 05/19/2023 56.2 kg (124 lb) PHYSICAL EXAMINATION: General appearance: Well appearing, alert, in no acute distress, well-hydrated, well nourished. Skin: Skin color, texture, turgor normal, no suspicious rashes or lesions Lungs: Lungs clear to auscultation. No wheezing, rhonchi, rales Heart: RRR without murmur, gallop, or rubs. No ectopy Abdomen: Normal abdominal exam, Abdomen soft, non-tender. Bowel sounds normal. No masses, organomegaly Extremities: No deformities, edema, skin discoloration, clubbing or cyanosis. Good capillary refill. Neuro: no neuro changes. ASSESSMENT/PLAN: 1. Hydrocephalus, unspecified type (HCC) - ICD9: 331.4, ICD10: G91.9 (primary diagnosis) Reminded to follow with neurology 2. Encounter for immunization - ICD9: V03.89, ICD10: Z23 - INFLUENZA VACCINE, AGE 6 MO - 64 YR, QUADRIVALENT (AFLURIA, FLULAVAL, FLUZONE) 3. Spina bifida with hydrocephalus, unspecified spinal region (HCC) - ICD9: 741.00, ICD10: Q05.4 - BACLOFEN 5 MG TABLET 4. Congenital hydrocephalus (HCC) - ICD9: 742.3, ICD10: Q03.9 - see neuro 5. Neurogenic bladder - ICD9: 596.54, ICD10: N31. - URINALYSIS, WITH MICROSCOPIC - URINE CULTURE - CONSULT TO NEUROLOGY 6. Gastroparesis - ICD9: 536.3, ICD10: K31.84 -doing better. 7. Chronic cough - ICD9: 786.2, ICD10: R05.3 - Discussed risks and benefits of new medication with the patient. Advised them to call if any side effects or questions. Keep follow up - SPIROMETRY WITH DILATOR IF OBSTRUCTED - LUNG DIFFUSION CAPACITY (DLCO) - OMEPRAZOLE 20 MG CAPSULE,DELAYED RELEASE 8. Dark urine - ICD9: 791.9, ICD10: R82.998 - check urine. 9. Hyponatremia - ICD9: 276.1, ICD10: E87. - COMP METABOLIC PANEL 10. Urinary retention - ICD9: 788.20, ICD10: R33.9 11. Hypokalemia - ICD9: 276.8, ICD10: E87.6 - COMP METABOLIC PANEL 12. Thrombocytosis - ICD9: 238.71, ICD10: D75.839 - CBC + DIFF Lyndon Estes RTO in six weeks and prn. documented in this encounter [facility] 07-13-2023 Miscellaneous Notes Signed and faxed back. Placed on Tommy's desk for review and completion. Sarahy Monet Type of form: Home Health Certification and POC Form received via fax When form is completed, Fax form to [phone] Form has been forwarded to Physician Mailbox: Dr. Tommy Guajardo LPN documented in this encounter [facility] 06-13-2023 Note HNO ID: [id number] Author: Liz Villarreal PA-C Service: ? Author Type: Physician Wig Stylist Type: Progress Notes Filed: 06/13/2023 10:17 PM Note Text: DEPARTMENT OF GASTROENTEROLOGY GI MOTILITY follow-up (Add-on patient from Dr. Nazario.) Hx by patient and his sister. REASON FOR VISIT Jian Fuentes is a 57 year old year old male who is an established patient with constipation. My final recommendations will be communicated back to the requesting physician by the way of the shared medical record, fax, or via US Mail. HISTORY OF PRESENT ILLNESS Jian Fuentes is a 57 year old year old male who presents today for an evaluation of chronic constipation AND ileus. Pt. AND his sister have been positivly impressed w/ their one month so far of adding Motegrity 2mg to his bowel regimen. Dr. Nazario saw him briefly and agrees with plan. FAMILY HISTORY Problem Relation Age of Onset Allergies Father Stroke Other Arthritis Other Cancer Brother lung cancer Asthma Sister other (head injury) Sister 04/03/2023 AST 10 04/03/2023 ALT 8 04/03/2023 Hemoglobin (g/dL) Date Value 05/20/2023 12.9 07/30/2021 15.3 Hematocrit (%) Date Value 05/20/2023 38.9 07/30/2021 47.4 WBC (k/uL) Date Value 05/20/2023 6.99 07/30/2021 12.52 Platelet Count (k/uL) Date Value 05/20/2023 480 07/30/2021 362 MCV (fL) Date Value 05/20/2023 89.4 07/30/2021 88.6 RECENT LABS Glucose 68 05/26/2023 BUN 9 05/26/2023 Creatinine 0.83 05/26/2023 Sodium 128 05/26/2023 Potassium 4.6 05/26/2023 Chloride 95 05/26/2023 CO2 19 05/26/2023 Protein, Total 6.6 04/03/2023 Albumin 3.7 04/03/2023 Calcium 8.6 05/26/2023 Alkaline Phosphatase 58 04/03/2023 Bilirubin, Total 0 Social History Tobacco Use Smoking status: Never Smokeless tobacco: Never Substance Use Topics Alcohol use: No Drug use: No PAST MEDICAL HISTORY Diagnosis Date Bowel dysfunction Constipation Hydrocephalus (HCC) Inguinal hernia left - imaging at [facility] Sleep apnea Spina bifida (HCC) Urinary retention PAST SURGICAL HISTORY Procedure Laterality Date CRTJ SHUNT [id number] TERMINUS [facility]IC[facility] INJ 08/06/2021 PAST SURGICAL HISTORY OF repair of hamstring Current Outpatient Medications Medication Sig linaCLOtide (LINZESS) 290 mcg capsule Take 1 capsule by mouth DAILY (6 AM). baclofen (LIORESAL) 5 mg tablet Take 1 tablet by mouth three times daily. bisacodyl (DULCOLAX) 10 mg supp Bisacodyl Active 10 MG RC NEEDED 0 January 24, 2022 10:15am OTC MOTEGRITY 2 mg tab tablet TAKE 1 TABLET BY MOUTH EVERY DAY (Patient not taking: Reported on 06/13/2023) No current facility-administered medications for this visit. ALLERGIES Allergen Reactions Contrast Dye Anaphylaxis Fd And C Blue No.1 Iodinated Contrast * Anaphylaxis Macrodantin [Nitrof* GI Upset Nitrofurantoin GI Upset Phenytoin REVIEW OF SYSTEMS PAIN ASSESSMENT: Negative for pain, history of chronic pain, or current treatment for a chronic pain condition. GENERAL: No weight loss, malaise or fevers HEENT: Negative for frequent or significant headaches, No changes in hearing or vision, no nose bleeds or other nasal problems NECK: Negative for lumps, goiter, pain and significant neck swelling RESPIRATORY: Negative for cough, hemoptysis, wheezing, COPD, dyspnea or shortness of breath CARDIOVASCULAR: Negative for chest pain, leg swelling, hypertension, CHF or palpitations GI: See HPI : No history of dysuria, frequency or incontinence MUSCULOSKELETAL: Negative for joint pain or swelling, back pain or muscle pain SKIN: Negative for lesions, rash, and itching PHYSICAL EXAMINATION BP 125/89 (BP Site: Left Arm, BP Position: Sitting, BP Cuff Size: Regular Adult) Pulse 80 Temp 36.1 ?C (97 ?F) (Temporal) Ht 160 cm (5' 3 ) Wt 56.2 kg (124 lb) SpO2 98% BMI 21.97 kg/m? General appearance: alert, oriented x 3, pleasant and in no acute distress Skin: Skin color, texture, turgor normal, no suspicious rashes or lesions Head: normocephalic, atraumatic Lungs: Lungs clear to auscultation. No wheezing, rhonchi, rales Heart: regular rate and rhythm, no murmurs or gallops Abdomen: Abdomen is soft, nontender, without organomegaly or masses. Extremities: no cyanosis or edema Gait: normal Assessment IMPRESSION: This is a 57 year old year old male presenting with spina bifida, hydrocephalus with SUSPECT ARTIST shunt AND is wheelchair-bound who has chronic constipation AND recurrent ileus'. PLAN: Pt. AND sister plan to continue on Motegrity 2mg AND not pursue Randolph-ped at this time. He's had no bloating or abdominal pain. BM's still require some rectal manipulation etc but it's reportedly much easier. Follow-up here or virtually. I suggested 6 mo. but they'd like to come sooner. I spent a total of 30 minutes minutes on the date of the service which included preparing to see the patie (more content not included)... [facility] 06-13-2023 History of Presen t illness Narrative DEPARTMENT OF GASTROENTEROLOGY GI MOTILITY follow-up (Add-on patient from Dr. Nazario.) Hx by patient and his sister. REASON FOR VISIT Jian Fuentes is a 57 year old year old male who is an established patient with constipation. My final recommendations will be communicated back to the requesting physician by the way of the shared medical record, fax, or via US Mail. HISTORY OF PRESENT ILLNESS Jian Fuentes is a 57 year old year old male who presents today for an evaluation of chronic constipation & ileus. Pt. & his sister have been positivly impressed w/ their one month so far of adding Motegrity 2mg to his bowel regimen. Dr. Nazario saw him briefly and agrees with plan. FAMILY HISTORY Problem Relation Age of Onset Allergies Father Stroke Other Arthritis Other Cancer Brother lung cancer Asthma Sister other (head injury) Sister 04/03/2023 AST 10 04/03/2023 ALT 8 04/03/2023 Hemoglobin (g/dL) Date Value 05/20/2023 12.9 07/30/2021 15.3 Hematocrit (%) Date Value 05/20/2023 38.9 07/30/2021 47.4 WBC (k/uL) Date Value 05/20/2023 6.99 07/30/2021 12.52 Platelet Count (k/uL) Date Value 05/20/2023 480 07/30/2021 362 MCV (fL) Date Value 05/20/2023 89.4 07/30/2021 88.6 RECENT LABS Glucose 68 05/26/2023 BUN 9 05/26/2023 Creatinine 0.83 05/26/2023 Sodium 128 05/26/2023 Potassium 4.6 05/26/2023 Chloride 95 05/26/2023 CO2 19 05/26/2023 Protein, Total 6.6 04/03/2023 Albumin 3.7 04/03/2023 Calcium 8.6 05/26/2023 Alkaline Phosphatase 58 04/03/2023 Bilirubin, Total 0 Social History Tobacco Use Smoking status: Never Smokeless tobacco: Never Substance Use Topics Alcohol use: No Drug use: No PAST MEDICAL HISTORY Diagnosis Date Bowel dysfunction Constipation Hydrocephalus (HCC) Inguinal hernia left - imaging at [facility] Sleep apnea Spina bifida (HCC) Urinary retention PAST SURGICAL HISTORY Procedure Laterality Date CRTJ SHUNT [id number] TERMINUS EGD W/O [facility] SPEC VARICIES INJ 08/06/2021 PAST SURGICAL HISTORY OF repair of hamstring Current Outpatient Medications Medication Sig linaCLOtide (LINZESS) 290 mcg capsule Take 1 capsule by mouth DAILY (6 AM). baclofen (LIORESAL) 5 mg tablet Take 1 tablet by mouth three times daily. bisacodyl (DULCOLAX) 10 mg supp Bisacodyl Active 10 MG RC NEEDED 0 January 24, 2022 10:15am OTC MOTEGRITY 2 mg tab tablet TAKE 1 TABLET BY MOUTH EVERY DAY (Patient not taking: Reported on 06/13/2023) No current facility-administered medications for this visit. ALLERGIES Allergen Reactions Contrast Dye Anaphylaxis Fd And C Blue No.1 Iodinated Contrast * Anaphylaxis Macrodantin [Nitrof* GI Upset Nitrofurantoin GI Upset Phenytoin REVIEW OF SYSTEMS PAIN ASSESSMENT: Negative for pain, history of chronic pain, or current treatment for a chronic pain condition. GENERAL: No weight loss, malaise or fevers HEENT: Negative for frequent or significant headaches, No changes in hearing or vision, no nose bleeds or other nasal problems NECK: Negative for lumps, goiter, pain and significant neck swelling RESPIRATORY: Negative for cough, hemoptysis, wheezing, COPD, dyspnea or shortness of breath CARDIOVASCULAR: Negative for chest pain, leg swelling, hypertension, CHF or palpitations GI: See HPI : No history of dysuria, frequency or incontinence MUSCULOSKELETAL: Negative for joint pain or swelling, back pain or muscle pain SKIN: Negative for lesions, rash, and itching PHYSICAL EXAMINATION BP 125/89 (BP Site: Left Arm, BP Position: Sitting, BP Cuff Size: Regular Adult) Pulse 80 Temp 36.1 C (97 F) (Temporal) Ht 160 cm (5' 3 ) Wt 56.2 kg (124 lb) SpO2 98% BMI 21.97 kg/m General appearance: alert, oriented x 3, pleasant and in no acute distress Skin: Skin color, texture, turgor normal, no suspicious rashes or lesions Head: normocephalic, atraumatic Lungs: Lungs clear to auscultation. No wheezing, rhonchi, rales Heart: regular rate and rhythm, no murmurs or gallops Abdomen: Abdomen is soft, nontender, without organomegaly or masses. Extremities: no cyanosis or edema Gait: normal Assessment IMPRESSION: This is a 57 year old year old male presenting with spina bifida, hydrocephalus with SUSPECT ARTIST shunt & is wheelchair-bound who has chronic constipation & recurrent ileus'. PLAN: Pt. & sister plan to continue on Motegrity 2mg & not pursue Randolph-ped at this time. He's had no bloating or abdominal pain. BM's still require some rectal manipulation etc but it's reportedly much easier. Follow-up here or virtually. I suggested 6 mo. but they'd like to come sooner. I spent a total of 30 minutes minutes on the date of the service which included preparing to see the patient, [id number] patient care, completing clinical documentation, obtaining and/or reviewing separately obtained history, performing a medically appropriate examination, counseling and educating the patient/family/caregiver, ordering medications, tests, or procedures, communicating results to the patient/family/caregiver, and care coordination (not separately reported). Liz Villarreal PA-C Neurogastroenterology Section Department of Gastroenterology June 13, 2023 documented in this encounter [facility] 06-13-2023 Miscellaneous Notes Ok. Juan from [facility] calls and states that he did re-certification of patient today. Juan states that senior care will visit patient 1 time a month in June and 2 times a month in July. Patient gets catheter changes once every month, and patient will need to be re-certified again at end of July. Please review and advise, Mercy Noonan, RN documented in this encounter [facility] 06-09-2023 Miscellaneous Notes Faxed signed orders by Azam Virgen PA-C for urological supplies, bedside drainage bad, to [facility]. Mabel Lopez LPN documented in this encounter [facility] 05-30-2023 Miscellaneous Notes Spoke with Darrion, patients sister who states she still has been unable to get out to get to store. She says she's using what she has at home which is tomato juice and pretzels while also reducing his water intake. She was advised to make sure she get his labs repeated in two weeks and she verbalized understanding. Sarahy Monet She needs to find a way to get some this week. His sodium should not be this low. Recheck bmp in two weeks. Patient sister Darrion returned call and went over results, notes from Dr Estes with understanding. Sister said she was not able to get out to the store to get gatorade. she is only caregiver taking care of brother. Message left for return call from sister, Darrion. Sarahy Monet Sodium is still low. Did they make changes that we discussed at last ov. documented in this encounter [facility] 05-23-2023 Miscellaneous Notes PHARMACY EMERGENCY DEPARTMENT CULTURE CALLBACK Patient Name: Jian Fuentes Date of Callback: 05/23/2023 Pharmacist contacted sister of this patient per emergency department culture callback guidelines. Patient was confirmed with 2 ID's Patient reviewed with Reuben Reese ALLERGIES Allergen Reactions Contrast Dye Anaphylaxis Fd And C Blue No.1 Iodinated Contrast * Anaphylaxis Macrodantin [Nitrof* GI Upset Nitrofurantoin GI Upset Phenytoin Type of Culture(s): Urine Culture Results: Positive: Citrobacter Change in treatment needed:No Action Taken: discussed with sister who stated that PCP had already sent in antibiotics Lab Results: n/a Home Medication List: Prior to Admission medications as of 05/20/23 9550 Medication Sig Last Dose Taking sulfamethoxazole-trimethoprim (BACTRIM DS) 800-160 mg per tablet Take 1 tablet by mouth twice daily for 7 days. linaCLOtide (LINZESS) 290 mcg capsule Take 1 capsule by mouth DAILY (6 AM). MOTEGRITY 2 mg tab tablet TAKE 1 TABLET BY MOUTH EVERY DAY baclofen (LIORESAL) 5 mg tablet Take 1 tablet by mouth three times daily. bisacodyl (DULCOLAX) 10 mg supp Bisacodyl Active 10 MG RC NEEDED 0 January 24, 2022 10:15am OTC Patient's Preferred Pharmacy: e- [facility]/pharmacy #[id number] [place] [address] [phone] [facility]. - [phone] [facility] [phone] Please page/call with any issues or questions. Electronic signature: Lesli Rutherford RPh May 23, 2023 7:55 PM Pager/Extension: [phone] documented in this encounter [facility] 05-23-2023 Miscellaneous Notes Sister made aware Urine culture from ER did come back positive. It is somewhat resistant. Add bactrim. Rx sent documented in this encounter [facility] 05-21-2023 Note HNO ID: [id number] Author: Liz Villarreal PA-C Service: ? Author Type: Physician Wig Stylist Type: Progress Notes Filed: 07/28/2023 11:24 PM Note Text: DEPARTMENT OF GASTROENTEROLOGY - NEW PATIENT/CONSULT GI MOTILITY History by patient AND sister. REASON FOR VISIT Jian Fuentes is a 57 year old year old male who is scheduled for New Patient (Chronic constipation, spina bifida with hydrocephalus). My final recommendations will be communicated back to the requesting physician by the way of the shared medical record, fax, or via US Mail. HISTORY OF PRESENT ILLNESS Jian Fuentes is a 57 year old year old male w/ h/o spina bifida who presents today for an evaluation of .chronic constipation, redundant colon, mult.SBO's AND spina bifida. Symptoms: Sister relates that he's had several SBO's and chronic constipation for which she has a complex daily bowel regimen set up. Recent discharge from hospital for same AND sister is worried that he might soon relapse. Couldn't afford several of the laxatives prescribed. Uses 2-3 suppository plus enema, lubricant AND rectal stim regularly. She's also careful about other factors that can affect his constipation: Diet - sweet potatoes AND rhubarb, poke greens AND muñiz, hot water, greasy foods AND yoel crackers. Exercise consists of walking 25 ft. Uses Linzess 290 mcg/d AND Baclofen ?5 mg tid. Eryped, Reglan ($300.00) AND Motegrity 2 mg - hasn't started yet. Reviewed: 04/15/22 CT Abd/Pel GI Tract: Dilated proximal-mid small bowel up to 5 cm with caliber change in the right abdomen, consistent with obstruction and likely related to adhesive tethering. Gas and feces within nondilated colon. Associated dilation of the distal esophagus and stomach related to the small bowel obstruction. FAMILY HISTORY Problem Relation Age of Onset Allergies Father Stroke Other Arthritis Other Cancer Brother lung cancer Asthma Sister other (head injury) Sister RECENT LABS Glucose 116 05/20/2023 BUN 9 05/20/2023 Creatinine 0.61 05/20/2023 Sodium 129 05/20/2023 Potassium 3.7 05/20/2023 Chloride 93 05/20/2023 CO2 27 05/20/2023 Protein, Total 6.6 04/03/2023 Albumin 3.7 04/03/2023 Calcium 8.7 05/20/2023 Alkaline Phosphatase 58 04/03/2023 Bilirubin, Total 0.6 04/03/2023 AST 10 04/03/2023 ALT 8 04/03/2023 Hemoglobin (g/dL) Date Value 05/20/2023 12.9 07/30/2021 15.3 Hematocrit (%) Date Value 05/20/2023 38.9 07/30/2021 47.4 WBC (k/uL) Date Value 05/20/2023 6.99 07/30/2021 12.52 Platelet Count (k/uL) Date Value 05/20/2023 480 07/30/2021 362 MCV (fL) Date Value 05/20/2023 89.4 07/30/2021 88.6 Social History Tobacco Use Smoking status: Never Smokeless tobacco: Never Substance Use Topics Alcohol use: No Drug use: No PAST MEDICAL HISTORY Diagnosis Date Bowel dysfunction Constipation Hydrocephalus (HCC) Inguinal hernia left - imaging at [facility] Sleep apnea Spina bifida (HCC) Urinary retention PAST SURGICAL HISTORY Procedure Laterality Date CRTJ SHUNT [id number] TERMINUS EGD W/O [facility] SPEC VARICIES INJ 08/06/2021 PAST SURGICAL HISTORY OF repair of hamstring Current Outpatient Medications Medication Sig linaCLOtide (LINZESS) 290 mcg capsule Take 1 capsule by mouth DAILY (6 AM). MOTEGRITY 2 mg tab tablet TAKE 1 TABLET BY MOUTH EVERY DAY baclofen (LIORESAL) 5 mg tablet Take 1 tablet by mouth three times daily. bisacodyl (DULCOLAX) 10 mg supp Bisacodyl Active 10 MG RC NEEDED 0 January 24, 2022 10:15am OTC No current facility-administered medications for this visit. ALLERGIES Allergen Reactions Contrast Dye Anaphylaxis Fd And C Blue No.1 Iodinated Contrast * Anaphylaxis Macrodantin [Nitrof* GI Upset Nitrofurantoin GI Upset Phenytoin REVIEW OF SYSTEMS PAIN ASSESSMENT: Negative for pain, history of chronic pain, or current treatment for a chronic pain condition. GENERAL: No weight loss, malaise or fevers HEENT: Negative for frequent or significant headaches, No changes in hearing or vision, no nose bleeds or other nasal problems NECK: Negative for lumps, goiter, pain and significant neck swelling RESPIRATORY: Negative for cough, hemoptysis, wheezing, COPD, dyspnea or shortness of breath CARDIOVASCULAR: Negative for chest pain, leg swelling, hypertension, CHF or palpitations GI: See HPI : No history of dysuria, frequency or incontinence MUSCULOSKELETAL: Negative for joint pain or swelling, back pain or muscle pain SKIN: Negative for lesions, rash, and itching PHYSICAL EXAMINATION BP 112/74 (BP Site: Right Arm, BP Position: Sitting, BP Cuff Size: Regular Adult) Pulse 85 Temp 37.1 ?C (98.8 ?F) (Temporal) Ht 160 cm (5' 3 ) Wt 56.2 kg (124 lb) SpO2 98% BMI 21.97 kg/m? Patient in wheelchair. Verbal but quiet. General appearance: alert, oriented x 3, pleasant and in no acute distress Skin: color, texture, turgor normal (more content not included)... [facility] 05-20-2023 Miscellaneous Notes Patient's sister notified of same. Placed call to patients sister Darrion. No answer. Left for return call. Sarahy Monet Potassium is normal. His sodium however is very low again. Make sure not drinking plain water. Supplement with things like gatorade etc. Recheck bmp next week documented in this encounter [facility] 05-19-2023 Note HNO ID: [id number] Author: Lyndon Estes MD Service: ? Author Type: Physician Type: Progress Notes Filed: 05/19/2023 4:13 PM Note Text: Patient presents with: Hospital F/U HPI: Patient presents today for office visit for hospital follow up. Admitted into [facility] on 05/09/23 Discharged on 05/16/23 Due to Gastroparesis. Gi saw in consult and it was discussed with [facility] who had him admitted previously and felt it was pseudoobstruction and gastroparesis. He improved with erthyro and reglan. Has chronic indwelling catheter Sent home with Tamsulosin 0.4 mg, Erythromycin 200mg/5ml and Metoclopramide. Per sister they did not pick these medications up due to expense. Wants to discuss starting Tamsulosin with urologist first. Sister told us yesterday she prefers to use natural means Explained there is no natural remedy for gastroparesis and that we need to probably used medications. They do have an appt tomorrow with gi. His potassium was low probably due to his prolonged ng. They have motegrity but has not started that yet. Reiterated that we need to do something. She will discuss Using rhubarb pie, sweet potato, relaxation, and exercise. See hospital discharge summary from 04/05. DIAGNOSIS: Principal Problem: Small bowel obstruction (HCC) POA: Yes Resolved Problems: * No resolved hospital problems. * OPERATIONS DURING HOSPITALIZATION: None PROCEDURES DURING HOSPITALIZATION: IV Access, EKG, KUB, SBFT Study HOSPITAL COURSE: Mr. Jian Fuentes is a 57 year old male with spina bifida, hydrocephalus s/p SUSPECT ARTIST shunt placement (at 19 yo in ), neurogenic bladder s/p chronic bowman placement (follows with Dr. Prince at [facility]), who presents on 04/03/2023 as transfer from [facility] for recurrent small bowel obstruction. Imaging obtained at OSH shows a mid SBO with diffuse small bowel fluid distension up to 4.7cm with transition to decompressed bowel in the posterior inferior abdomen. A nasogastric tube was placed at OSH prior to transfer. KUB upon arrival confirms appropriate position. Patient admitted under general surgery to the regular nursing floor. He underwent SBFT 04/04 with resolution of small bowel dilation with persistent gaseous colonic dilation; normal small bowel transit time without obstruction . MEDICATIONS: Current Outpatient Medications Medication Sig linaCLOtide (LINZESS) 290 mcg capsule Take 1 capsule by mouth DAILY (6 AM). MOTEGRITY 2 mg tab tablet TAKE 1 TABLET BY MOUTH EVERY DAY baclofen (LIORESAL) 5 mg tablet Take 1 tablet by mouth three times daily. bisacodyl (DULCOLAX) 10 mg supp Bisacodyl Active 10 MG RC NEEDED 0 January 24, 2022 10:15am OTC No current facility-administered medications for this visit. ALLERGIES: ALLERGIES Allergen Reactions Contrast Dye Anaphylaxis Fd And C Blue No.1 Iodinated Contrast * Anaphylaxis Macrodantin [Nitrof* GI Upset Nitrofurantoin GI Upset Phenytoin PAST MEDICAL HISTORY Diagnosis Date Bowel dysfunction Constipation Hydrocephalus (HCC) Inguinal hernia left - imaging at [facility] Sleep apnea Spina bifida (HCC) Urinary retention PAST SURGICAL HISTORY Procedure Laterality Date CRTJ SHUNT [id number] TERMINUS [facility] SPE[facility] VARICIES INJ 08/06/2021 PAST SURGICAL HISTORY OF repair of hamstring FAMILY HISTORY Problem Relation Age of Onset Allergies Father Stroke Other Arthritis Other Cancer Brother lung cancer Asthma Sister other (head injury) Sister Social History Tobacco Use Smoking status: Never Smokeless tobacco: Never Substance Use Topics Alcohol use: No Drug use: No Reviewed current medications, allergies, past medical history, surgical history, family history and social history today. REVIEW OF SYSTEMS All other reviewed and negative other than HPI. VITALS: BP 108/64 Pulse 94 Ht 160 cm (5' 3 ) Wt 56.2 kg (124 lb) SpO2 96% BMI 21.97 kg/m? Last 4 Encounter Wt Readings: Date: Wt: 04/02/2023 58 kg (127 lb 13.9 oz) 01/27/2023 54 kg (119 lb) 10/04/2022 54 kg (119 lb) 08/24/2022 54 kg (119 lb) PHYSICAL EXAMINATION: General appearance: Well appearing, alert, in no acute distress, well-hydrated, well nourished in wheelchair. Skin: Skin color, texture, turgor normal, no suspicious rashes or lesions Head: Normocephalic, no masses, lesions, tenderness or abnormalities Lungs: Lungs clear to auscultation. No wheezing, rhonchi, rales Heart: RRR without murmur, gallop, or rubs. No ectopy Abdomen: Normal abdominal exam, Abdomen soft, non-tender. Bowel sounds normal. No masses, organomegaly Bowman draining well. ASSESSMENT/PLAN: 1. Acute pseudo-obstruction of bowel - ICD9: 560.89, ICD10: K59.89 (primary diagnosis) - see gi. Encouraged to follow their recommendations. If have motegrity. 2. Gastroparesis - ICD9: 536.3, ICD10: K31.84 - see gi. 3. Spina bifida with hydrocephalus, unspecified s (more content not included)... [facility] 05-19-2023 History of Presen t illness Narrative Patient presents with: Hospital F/U HPI: Patient presents today for office visit for hospital follow up. Admitted into [facility] on 05/09/23 Discharged on 05/16/23 Due to Gastroparesis. Gi saw in consult and it was discussed with [facility] who had him admitted previously and felt it was pseudoobstruction and gastroparesis. He improved with erthyro and reglan. Has chronic indwelling catheter Sent home with Tamsulosin 0.4 mg, Erythromycin 200mg/5ml and Metoclopramide. Per sister they did not pick these medications up due to expense. Wants to discuss starting Tamsulosin with urologist first. Sister told us yesterday she prefers to use natural means Explained there is no natural remedy for gastroparesis and that we need to probably used medications. They do have an appt tomorrow with gi. His potassium was low probably due to his prolonged ng. They have motegrity but has not started that yet. Reiterated that we need to do something. She will discuss Using rhubarb pie, sweet potato, relaxation, and exercise. See hospital discharge summary\ from 04/05. DIAGNOSIS: Principal Problem: Small bowel obstruction (HCC) POA: Yes Resolved Problems: * No resolved hospital problems. * OPERATIONS DURING HOSPITALIZATION: None PROCEDURES DURING HOSPITALIZATION: IV Access, EKG, KUB, SBFT Study HOSPITAL COURSE: Mr. Jian Fuentes is a 57 year old male with spina bifida, hydrocephalus s/p SUSPECT ARTIST shunt placement (at 19 yo in ), neurogenic bladder s/p chronic bowman placement (follows with Dr. Prince at [facility]), who presents on 04/03/2023 as transfer from [facility] for recurrent small bowel obstruction. Imaging obtained at OSH shows a mid SBO with diffuse small bowel fluid distension up to 4.7cm with transition to decompressed bowel in the posterior inferior abdomen. A nasogastric tube was placed at OSH prior to transfer. KUB upon arrival confirms appropriate position. Patient admitted under general surgery to the regular nursing floor. He underwent SBFT 04/04 with resolution of small bowel dilation with persistent gaseous colonic dilation; normal small bowel transit time without obstruction . MEDICATIONS: Current Outpatient Medications Medication Sig linaCLOtide (LINZESS) 290 mcg capsule Take 1 capsule by mouth DAILY (6 AM). MOTEGRITY 2 mg tab tablet TAKE 1 TABLET BY MOUTH EVERY DAY baclofen (LIORESAL) 5 mg tablet Take 1 tablet by mouth three times daily. bisacodyl (DULCOLAX) 10 mg supp Bisacodyl Active 10 MG RC NEEDED 0 January 24, 2022 10:15am OTC No current facility-administered medications for this visit. ALLERGIES: ALLERGIES Allergen Reactions Contrast Dye Anaphylaxis Fd And C Blue No.1 Iodinated Contrast * Anaphylaxis Macrodantin [Nitrof* GI Upset Nitrofurantoin GI Upset Phenytoin PAST MEDICAL HISTORY Diagnosis Date Bowel dysfunction Constipation Hydrocephalus (HCC) Inguinal hernia left - imaging at [facility] Sleep apnea Spina bifida (HCC) Urinary retention PAST SURGICAL HISTORY Procedure Laterality Date CRTJ SHUNT [id number] TERMINUS EGD W/O BRSH SPEC VARICIES INJ 08/06/2021 PAST SURGICAL HISTORY OF repair of hamstring FAMILY HISTORY Problem Relation Age of Onset Allergies Father Stroke Other Arthritis Other Cancer Brother lung cancer Asthma Sister other (head injury) Sister Social History Tobacco Use Smoking status: Never Smokeless tobacco: Never Substance Use Topics Alcohol use: No Drug use: No Reviewed current medications, allergies, past medical history, surgical history, family history and social history today. REVIEW OF SYSTEMS All other reviewed and negative other than HPI. VITALS: BP 108/64 Pulse 94 Ht 160 cm (5' 3 ) Wt 56.2 kg (124 lb) SpO2 96% BMI 21.97 kg/m Last 4 Encounter Wt Readings: Date: Wt: 04/02/2023 58 kg (127 lb 13.9 oz) 01/27/2023 54 kg (119 lb) 10/04/2022 54 kg (119 lb) 08/24/2022 54 kg (119 lb) PHYSICAL EXAMINATION: General appearance: Well appearing, alert, in no acute distress, well-hydrated, well nourished in wheelchair. Skin: Skin color, texture, turgor normal, no suspicious rashes or lesions Head: Normocephalic, no masses, lesions, tenderness or abnormalities Lungs: Lungs clear to auscultation. No wheezing, rhonchi, rales Heart: RRR without murmur, gallop, or rubs. No ectopy Abdomen: Normal abdominal exam, Abdomen soft, non-tender. Bowel sounds normal. No masses, organomegaly Bowman draining well. ASSESSMENT/PLAN: 1. Acute pseudo-obstruction of bowel - ICD9: 560.89, ICD10: K59.89 (primary diagnosis) - see gi. Encouraged to follow their recommendations. If have motegrity. 2. Gastroparesis - ICD9: 536.3, ICD10: K31.84 - see gi. 3. Spina bifida with hydrocephalus, unspecified spinal region (HCC) - ICD9: 741.00, ICD10: Q05.4 - stable. 4. Hypokalemia - ICD9: 276.8, ICD10: E87.6 - bmp. Will follow up. Lyndon Estes MD documented in this encounter [facility] 05-18-2023 Miscellaneous Notes Called sister Lesli notified and given Dr. Estes's instructions. Given the amount of hospitalizations he has had. Relying on natural medicines is a very, very bad idea and may be dangerous. Let her know I highly discourage that. Spoke with sister, Lesli, states patient had a large bowel movement today, states they would rather rely on natural foods than take medication. Is scheduled to be at appointment tomorrow. Will try to get blood drawn prior to, but may be after appointment tomorrow. Let them know I recommend they get these meds unless they like for him to go to the hospital again. Needs labs done. Shruthi from [facility] calls to report that senior care had gone out to see patient on 05/16 to resume HH after patient was discharged from hospital. Patient is supposed to be getting labs drawn for renal function. Patient had family is not wanting home health to come and do this. Patient and family is only wanting senior care to come out to only change the bowman catheter. This needs to be changed again on 05/30 Patient was prescribed erythromycin ethylsuccinate 200 mg/5ml suspension which patient is supposed to be taking 2.5 mL TID and metoclopramide 5 mg tablet which patient is supposed to be taking every 6 hours. Patient and family went to pharmacy and did not sisal picker both medications due to cost. Patient has hospital follow up appointment with Dr. Estes on 05/19/2023 which patient and family are supposed to discuss the above with provider. Mercy Noonan RN documented in this encounter [facility] 05-18-2023 Miscellaneous Notes Yvette from [facility] reports pt was hospitalized 05/09 - 05/16/2023 & has a FU appt 05/19/23. Pt's sister is asking for a list of high potassium foods when she brings pt in for his appt. Felicita Kennedy LPN documented in this encounter [facility] 05-04-2023 Note HNO ID: [id number] Author: Giselle Reese RN Service: ? Author Type: Registered Nurse Type: Progress Notes Filed: 05/04/2023 2:42 PM Note Text: TRANSITION CARE MANAGEMENT (TCM) FOLLOW-UP NOTE Provider Action/FYI Chart reviewed. Unable to reach pt/pts sister Darrion for TCM follow-up call, left voicemail. Will continue to follow. Summary: Pt discharged from [facility] on 04/06/23. Admitted for: small bowel obstruction PMHx spina bifida, hydrocephalus s/p SUSPECT ARTIST shunt placement, s/p chronic bowman placement Signature Giselle Reese RN May 04, 2023 [facility] 05-04-2023 History of Presen t illness Narrative TRANSITION CARE MANAGEMENT (TCM) FOLLOW-UP NOTE Provider Action/FYI Chart reviewed. Unable to reach pt/pts sister Darrion for TCM follow-up call, left voicemail. Will continue to follow. Summary: Pt discharged from [facility] on 04/06/23. Admitted for: small bowel obstruction PMHx spina bifida, hydrocephalus s/p SUSPECT ARTIST shunt placement, s/p chronic bowman placement Signature Giselle Reese RN May 04, 2023 documented in this encounter [facility] 05-04-2023 Note Patient Outreach (AM [facility]) JIAN FUENTES ([id number]) 1965 M Date Time Provider Department 05/04/23 GISELLE REESE During your visit today, we recorded the following information about you: Giselle Reese RN 05/04/2023 2:42 PM Signed TRANSITION CARE MANAGEMENT (TCM) FOLLOW-UP NOTE Provider Action/FYI Chart reviewed. Unable to reach pt/pts sister Darrion for TCM follow-up call, left voicemail. Will continue to follow. Summary: Pt discharged from [facility] on 04/06/23. Admitted for: small bowel obstruction PMHx spina bifida, hydrocephalus s/p SUSPECT ARTIST shunt placement, s/p chronic bowman placement Signature Giselle Reese RN May 04, 2023 Allergies As of Date: 05/04/2023 Noted Allergy Reaction CONTRAST DYE 10/29/2010 10 - Anaphylaxis FD AND C BLUE NO.1 07/29/2006 IODINATED CONTRAST MEDIA 12/11/2020 10 - Anaphylaxis MACRODANTIN (NITROFURANTOIN MACRO*10/29/2010 8 - GI Upset NITROFURANTOIN 12/11/2020 8 - GI Upset PHENYTOIN 07/29/2006 Date Reviewed: 04/03/2023 Reviewed by: Sarahy Muñiz RN - Fully Assessed Reason for Visit: Transition Of Care [4074] Cmt: TCM follow-up Prescriptions as of 05/04/2023 - linaCLOtide (LINZESS) 290 mcg capsule Take 1 capsule by mouth DAILY (6 AM). - MOTEGRITY 2 mg tab tablet TAKE 1 TABLET BY MOUTH EVERY DAY - baclofen (LIORESAL) 5 mg tablet Take 1 tablet by mouth three times daily. - bisacodyl (DULCOLAX) 10 mg supp Bisacodyl Active 10 MG RC NEEDED 0 January 24, 2022 10:15am OTC Meds Comments as of 11/01/2020: 11/01/2020 Pt's sister stating pt not taking Cipro at this time, completed course of atb. Matt Gutierrez Problem List As Of Date 05/04/2023 Noted Resolved Congenital hydrocephalus (HCC) [Q03.9] 02/02/2008 CP (CEREBRAL PALSY - INFANTILE) HEMIPLEGIA, CON*02/02/2008 05/22/2013 Myelodysplasia [NZW3135] 05/22/2013 Deformity of ankle and foot, acquired [M21.969] 07/31/2015 Weakness [R53.1] 07/31/2015 Abnormality of gait [R26.9] 07/31/2015 Spina bifida (HCC) [Q05.9] 08/22/2018 Neurogenic bladder [N31.9] 08/22/2018 Benign prostatic hyperplasia with urinary reten*08/29/2020 Right inguinal hernia [K40.90] 04/06/2021 Hydrocephalus (HCC) [G91.9] 04/06/2021 Urinary retention [R33.9] 04/06/2021 SBO (small bowel obstruction) (HCC) [K56.609] 04/14/2022 History of brain shunt [Z98.2] 07/16/2022 Small bowel obstruction (HCC) [K56.609] 04/03/2023 04/06/2023 Encounter Status:Closed by GISELLE REESE on 05/04/23 [facility] 04-20-2023 Note HNO ID: [id number] Author: Giselle Reese RN Service: ? Author Type: Registered Nurse Type: Progress Notes Filed: 04/20/2023 3:49 PM Note Text: TRANSITION CARE MANAGEMENT (TCM) FOLLOW-UP NOTE Provider Action/FYI Chart reviewed. Spoke with pts sister Darrion, states pt is doing ok, no s/s of pain, no sob, tolerating diet, having bowel movements most days. Discussed missed appt with PCP 04/14/23, states she forgot to write it down-she will reschedule with Dr Estes herself, did not want assistance with that. She states overall, pt is doing better. Will continue to follow. Patient identified by name and date of : YES Spoke to sister Darrion Caregiver Discharge Network Status: In-Network Discharge Summary: Pt discharged from [facility] on 04/06/23. Admitted for: small bowel obstruction PMHx spina bifida, hydrocephalus s/p SUSPECT ARTIST shunt placement, s/p chronic bowman placement Signature Giselle Reese RN April 20, 2023 [facility] 04-20-2023 History of Presen t illness Narrative TRANSITION CARE MANAGEMENT (TCM) FOLLOW-UP NOTE Provider Action/FYI Chart reviewed. Spoke with pts sister Darrion, states pt is doing ok, no s/s of pain, no sob, tolerating diet, having bowel movements most days. Discussed missed appt with PCP 04/14/23, states she forgot to write it down-she will reschedule with Dr Estes herself, did not want assistance with that. She states overall, pt is doing better. Will continue to follow. Patient identified by name and date of : YES Spoke to sister Darrion Caregiver Discharge Network Status: In-Network Discharge Summary: Pt discharged from [facility] on 04/06/23. Admitted for: small bowel obstruction PMHx spina bifida, hydrocephalus s/p SUSPECT ARTIST shunt placement, s/p chronic bowman placement Signature Giselle Reese RN April 20, 2023 documented in this encounter [facility] 04-20-2023 Note Patient Outreach [place] JIAN FUENT[place] ([id number]) 1965 M Date Time Provider Department 04/20/23 GISELLE REESE During your visit today, we recorded the following information about you: Giselle Reese RN 04/20/2023 3:49 PM Signed TRANSITION CARE MANAGEMENT (TCM) FOLLOW-UP NOTE Provider Action/FYI Chart reviewed. Spoke with pts sister Darrion, states pt is doing ok, no s/s of pain, no sob, tolerating diet, having bowel movements most days. Discussed missed appt with PCP 04/14/23, states she forgot to write it down-she will reschedule with Dr Estes herself, did not want assistance with that. She states overall, pt is doing better. Will continue to follow. Patient identified by name and date of : YES Spoke to sister Darrion Caregiver Discharge Network Status: In-Network Discharge Summary: Pt discharged from [facility] on 04/06/23. Admitted for: small bowel obstruction PMHx spina bifida, hydrocephalus s/p SUSPECT ARTIST shunt placement, s/p chronic bowman placement Signature Giselle Reese RN April 20, 2023 Allergies As of Date: 04/20/2023 Noted Allergy Reaction CONTRAST DYE 10/29/2010 10 - Anaphylaxis FD AND C BLUE NO.1 07/29/2006 IODINATED CONTRAST MEDIA 12/11/2020 10 - Anaphylaxis MACRODANTIN (NITROFURANTOIN MACRO*10/29/2010 8 - GI Upset NITROFURANTOIN 12/11/2020 8 - GI Upset PHENYTOIN 07/29/2006 Date Reviewed: 04/03/2023 Reviewed by: Sarahy Muñiz RN - Fully Assessed Reason for Visit: Transition Of Care [4074] Cmt: TCM follow-up Prescriptions as of 04/20/2023 - linaCLOtide (LINZESS) 290 mcg capsule Take 1 capsule by mouth DAILY (6 AM). - MOTEGRITY 2 mg tab tablet TAKE 1 TABLET BY MOUTH EVERY DAY - baclofen (LIORESAL) 5 mg tablet Take 1 tablet by mouth three times daily. - bisacodyl (DULCOLAX) 10 mg supp Bisacodyl Active 10 MG RC NEEDED 0 January 24, 2022 10:15am OTC Meds Comments as of 11/01/2020: 11/01/2020 Pt's sister stating pt not taking Cipro at this time, completed course of jaycob. Matt Gutierrez Problem List As Of Date 04/20/2023 Noted Resolved Congenital hydrocephalus (HCC) [Q03.9] 02/02/2008 CP (CEREBRAL PALSY - INFANTILE) HEMIPLEGIA, CON*02/02/2008 05/22/2013 Myelodysplasia [BME7648] 05/22/2013 Deformity of ankle and foot, acquired [M21.969] 07/31/2015 Weakness [R53.1] 07/31/2015 Abnormality of gait [R26.9] 07/31/2015 Spina bifida (HCC) [Q05.9] 08/22/2018 Neurogenic bladder [N31.9] 08/22/2018 Benign prostatic hyperplasia with urinary reten*08/29/2020 Right inguinal hernia [K40.90] 04/06/2021 Hydrocephalus (HCC) [G91.9] 04/06/2021 Urinary retention [R33.9] 04/06/2021 SBO (small bowel obstruction) (HCC) [K56.609] 04/14/2022 History of brain shunt [Z98.2] 07/16/2022 Small bowel obstruction (HCC) [K56.609] 04/03/2023 04/06/2023 Encounter Status:Closed by GISELLE REESE on 04/20/23 [facility] 04-15-2023 Miscellaneous Notes Notified. Ok to do Bushra with [facility] asking provider for order to allow [facility] to see patient monthly for catheter changes; 1 month x 1, then 2 months x 1. Please call Bushra at [phone]. Thank you. documented in this encounter [facility] 04-07-2023 Note Patient Outreach ([facility] JIAN FUENTES ([id number]) 1965 M Date Time Provider Department 04/07/23 GISELLE REESEG During your visit today, we recorded the following information about you: Giselle Reese RN 04/07/2023 10:14 AM Signed TCM Home Visit Referral Source of Stratification: [facility] Admission Status: Discharged Readmission Risk Score: 17 SHAMA Score: 8 Patient meets program referral criteria: No Patient does not qualify for High Risk TCM Home Visit program due to: Discharged home, does not meet program criteria Giselle Reese RN April 07, 2023 10:14 AM TRANSITIONAL CARE MANAGEMENT (TCM) COMMUNITY MONITORING PROGRAM Provider Action/FYI: PMHx spina bifida, hydrocephalus s/p SUSPECT ARTIST shunt placement, s/p chronic bowman placement Spoke with pts sister Ramsey, she is primary caregiver and lives with him, she states pt does not c/o pain, no sob, still burping a lot, had small stool last night, she is keeping him on full liquid diet today then she said she would advance as tolerated-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 TCM Eligible until 04/20/23 Thank you SUMMARY: Discharge Network Status: In-Network Discharge Pt discharged from [facility] [place] on 04/06/23. Admitted for: small bowel obstruction Contact made with patient: Yes Hi my name is Giselle Reese RN and I am calling from the [facility] on behalf of your PCP, Lyndon Estes MD I understand you were recently in the hospital so I am calling to check in with you to ensure you are feeling well now that you're home. May I ask you a few questions related to your hospital stay and well-being? Yes Contact with patient post discharge, spoke to sister. Patient identified by name and . Do you feel your health is BETTER, WORSE, or the SAME since leaving the hospital? Better ACTION TAKEN: Patient indicated symptoms are better or same, no action required. Continue outreach. MEDICATIONS: Many patients have questions or concerns about their medications once they are home. Do you have any questions about taking your medications or which medication you should be on? No Do you need any medication refills at this time, including any of the medications you might take only when needed? No ACTION TAKEN: No action required For RNs or Pharmacy completing outreach ONLY, was a medication review completed? Yes SOCIAL: We would like to make sure you have what you need so that your basics needs are met - including your personal safety, food, housing and medications. Would you like to speak with a social work seafood team member to help give you support for any of these needs? No It can be normal to feel anxious or down during a time like this. Would you like to talk to a mental health professional about how you have been feeling? No ACTION TAKEN: No action taken DISCHARGE INTRUCTIONS: Your discharge instructions / After Visit Summary (AVS) are important in guiding you through the recovery process. Do you have any questions related to your discharge instructions? No Do you have all the necessary equipment and supplies at home? Yes ACTION TAKEN: No action required I would like to help you schedule a hospital follow-up virtual or telephone visit with your PCP. This is a great way for you to connect with your provider to ensure you have safely transitioned home. If you are agreeable, I will send your request to a radiology scheduler who will contact and assist you with that appointment. This will give you an opportunity to ask any questions or address any concerns you may have with your PCP. Inform the patient that if they have any questions or concerns prior to that appointment, to call their PCP's office right away. ACTION TAKEN: Patient desires an appointment - Routed to [facility] [[id number]] for scheduling telehealth visit (telephonic, virtual visit, or Facetime) within 7 days of discharge with PCP care team. Indicate hospital follow-up appointment needed within 7 days in Provider/FYI box. End Outreach. Your doctor would like us to remind you of the recommendations regarding the coronavirus (Covid19) outbreak: Avoid public places as much as possible. Avoid close contact (within 6 feet) with others you don?t live with, especially if they are sick. Stay home if you are sick. Wash your hands regularly for at least 20 seconds with soap and water. Wear a cloth mask in public places to help reduce community spread. Do not go to your Doctor?s office unless instructed to do so. For any non-emergency symptoms, call your Doctor?s office to get instructions on how to manage (we might recommend a telephone or virtual visit). For emergency symptoms, pro (more content not included)... [facility] 04-07-2023 Note HNO ID: [id number] Author: Kaitlynn Mitchell MA Service: ? Author Type: [employer] Bluer Type: Progress Notes Filed: 04/07/2023 11:04 AM Note Text: POPULATION HEALTH NAVIGATION OUTREACH Action/FYI April 07, 2023 Spoke with pt's sisterLesli. Pt scheduled for hospital follow up appt on 04/14/23 with PCP. Contact: Lesli Bansal (Sister) [phone] (Home Phone TCM eligible through 04/20/23 Pt discharged from [facility] on 04/06/23 Admitted for: small bowel obstruction Patient Identified by Name and : YES, via phone Outreach Outcome/Action Spoke to patient / parent / legal guardian: Patient scheduled Did you use a PCP flex slot to schedule this appointment? No Reason for Outreach Community Monitoring Pool Payer: Payor: [employer] / Plan: [employer] HMO / Product Type: HMO / Care Gap Reviewed:: Follow-up appointment Reminder: Reminder note to check Health Maintenance for items below Health Maintenance items due: COLORECTAL CANCER SCREENING due on 03/27/2022 COVID-19 VACCINE(4 - Booster for Moderna series) due on 06/14/2022 Navigation Signature: Kaitlynn Mitchell MA April 07, 2023 10:[address] [facility] 04-07-2023 Note HNO ID: [id number] Author: Giselle Reese RN Service: ? Author Type: Registered Nurse Type: Progress Notes Filed: 04/07/2023 10:14 AM Note Text: TCM Home Visit Referral Source of Stratification: TCM [facility] Hospital Admission Status: Discharged Readmission Risk Score: 17 SHAMA Score: 8 Patient meets program referral criteria: No Patient does not qualify for High Risk TCM Home Visit program due to: Discharged home, does not meet program criteria Giselle Reese RN April 07, 2023 10:14 AM TRANSITIONAL CARE MANAGEMENT (TCM) COMMUNITY MONITORING PROGRAM Provider Action/FYI: PMHx spina bifida, hydrocephalus s/p SUSPECT ARTIST shunt placement, s/p chronic bowman placement Spoke with pts sister Ramsey, she is primary caregiver and lives with him, she states pt does not c/o pain, no sob, still burping a lot, had small stool last night, she is keeping him on full liquid diet today then she said she would advance as tolerated-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 TCM Eligible until 04/20/23 Thank you SUMMARY: Discharge Network Status: In-Network Discharge Pt discharged from [facility] [place] on 04/06/23. Admitted for: small bowel obstruction Contact made with patient: Yes Hi my name is Giselle Reese RN and I am calling from the [facility] on behalf of your PCP, Lyndon Estes MD I understand you were recently in the hospital so I am calling to check in with you to ensure you are feeling well now that you're home. May I ask you a few questions related to your hospital stay and well-being? Yes Contact with patient post discharge, spoke to sister. Patient identified by name and . Do you feel your health is BETTER, WORSE, or the SAME since leaving the hospital? Better ACTION TAKEN: Patient indicated symptoms are better or same, no action required. Continue outreach. MEDICATIONS: Many patients have questions or concerns about their medications once they are home. Do you have any questions about taking your medications or which medication you should be on? No Do you need any medication refills at this time, including any of the medications you might take only when needed? No ACTION TAKEN: No action required For RNs or Pharmacy completing outreach ONLY, was a medication review completed? Yes SOCIAL: We would like to make sure you have what you need so that your basics needs are met - including your personal safety, food, housing and medications. Would you like to speak with a social work seafood team member to help give you support for any of these needs? No It can be normal to feel anxious or down during a time like this. Would you like to talk to a mental health professional about how you have been feeling? No ACTION TAKEN: No action taken DISCHARGE INTRUCTIONS: Your discharge instructions / After Visit Summary (AVS) are important in guiding you through the recovery process. Do you have any questions related to your discharge instructions? No Do you have all the necessary equipment and supplies at home? Yes ACTION TAKEN: No action required I would like to help you schedule a hospital follow-up virtual or telephone visit with your PCP. This is a great way for you to connect with your provider to ensure you have safely transitioned home. If you are agreeable, I will send your request to a radiology scheduler who will contact and assist you with that appointment. This will give you an opportunity to ask any questions or address any concerns you may have with your PCP. Inform the patient that if they have any questions or concerns prior to that appointment, to call their PCP's office right away. ACTION TAKEN: Patient desires an appointment - Routed to [facility] [[id number]] for scheduling telehealth visit (telephonic, virtual visit, or Facetime) within 7 days of discharge with PCP care team. Indicate hospital follow-up appointment needed within 7 days in Provider/FYI box. End Outreach. Your doctor would like us to remind you of the recommendations regarding the coronavirus (Covid19) outbreak: Avoid public places as much as possible. Avoid close contact (within 6 feet) with others you don?t live with, especially if they are sick. Stay home if you are sick. Wash your hands regularly for at least 20 seconds with soap and water. Wear a cloth mask in public places to help reduce community spread. Do not go to your Doctor?s office unless instructed to do so. For any non-emergency symptoms, call your Doctor?s office to get instructions on how to manage (we might recommend a telephone or virtual visit). For emergency symptoms, proceed to Emergency Department as usual but inform them of cough and fever symptoms JIE if present (or call on the way if possible). IRENE Education Ordered -: No [facility] 04-06-2023 Note HNO ID: [id number] Author: Arian Nichols RN Service: Care Management Author Type: Registered Nurse Type: Care Mgt Progress Note Filed: 04/07/2023 8:42 AM Note Text: CARE MANAGEMENT DISCHARGE NOTE SERVICE DATE: April 07, 2023 SERVICE TIME: 8:42 AM Admission Date: 04/03/2023 LOS: 3 days Discharge Arrangement Discharge Arrangement: Home with Relative, Home with Self Care Caregiver Assessment Caregiver is ready, willing and able to meet the patient's needs as recommended by the inter-professional team: Yes Name of Caregiver: Sister Transportation Arrangements Transportation Arrangements: Car Handoff Communication: Handoff to: Primary Care Physician Primary Care Physician Name/Phone: Lyndon Estes MD [phone] Patient d/c ready to home with no skilled needs identified. Patient and bedside RN aware of plan. Family to transport patient home via private auto. SIGNATURE: Arian Nichols RN PATIENT NAME: Jian Fuentes DATE: April 07, 2023 TIME: 8:42 AM CONTACT #: [phone] [facility] 04-06-2023 Note HNO ID: [id number] Author: Roscoe Dejesus MD Service: General Surgery Author Type: Resident Type: Progress Notes Filed: 04/06/2023 10:38 AM Note Text: GENERAL SURGERY SERVICE PROGRESS NOTE Jian Fuentes [id number] ASSESSMENT: Jian Fuentes is 57 year old PMHx spina bifida, hydrocephalus s/p SUSPECT ARTIST shunt placement (at 19 yo in ), neurogenic bladder s/p chronic bowman placement (follows with Dr. Prince at [facility]), and bilateral asymptomatic inguinal hernias who presented as transfer from [facility] for recurrent small bowel obstructions. Imaging shows a mid SBO with some distal small bowel. Patient is currently being managed conservatively. Patient underwent SBFT on 04/04 with contrast reaching colon in 60 mins, presentation more consistent with decreased intestinal motility vs functional. Will advance diet as tolerated today and will continue suppositories as this is helping with patient's bowel function. If he is tolerating soft foods this afternoon he is ok for discharge and should follow up with GI for intestinal dysmotility. PLAN of Care: - Advance diet as tolerated today, if tolerating GI soft then ok for discharge - Continue suppositories PRN Roscoe Dejesus MD General Surgery, PGY 1 For team paging 6AM-6PM during weekdays: Acute Care Surgery (ACS) Day Floor Pager: [phone] Acute Care Surgery (ACS) Day Consults Pager: [phone] On nights (6 pm to 6 am) and on Weekends/Holidays, please page the on-call pager: [phone] Subjective INTERVAL HPI: NG tube removed yesterday afternoon. Tolerating clear liquids this morning. No nausea or vomiting. Having bowel function which is helped by suppositories. Objective BP 154/90 Pulse 90 Temp (Src) 98.4 (Oral) Resp 16 Ht 5' 3 (1.60m) Wt 127 lb 13.9 oz (58.0kg) SpO2 98% BMI 22.66 kg/(m2). O2 Therapy: Room Air Date 04/05/23 07 - 04/06/23 0659 04/06/23 0700 - 04/07/23 0659 Shift 1403-9357 8489-8406 7874-8502 24 Hour Total 5282-8766 0300-6372 7532-0496 24 Hour Total INTAKE PO 0 0 PO 0 0 IV 1600 786 352 2492 Volume (mL) (levoFLOXacin iv piggyback 750 mg in D5W 150 mL (LEVAQUIN)) 150 150 Volume (mL) (lactated ringers iv infusion) 1450 450 024 8758 Shift Total 1600 027 009 6697 OUTPUT Urine 650 2492 348 0912 Output ( Indwelling Urinary Catheter 04/03/23 0240 Admission to [facility]) 650 9988 041 1058 Emesis 0 0 Emesis (ml) 0 0 Tubes 100 100 Output ([REMOVED] GI Feed 04/03/23 0241 Admission to Hospital Gastric Left Naris 04/05/23 1745) 100 100 # of BMs Number of BMs 0 x 2 x 2 x Shift Total 750 8966 825 9887 Weight (kg) 58 58 58 58 58 58 58 58 Lines, Drains, and Airways Line Duration Peripheral 04/06/23 1006 Right Arm 22 Gauge <1 day Drain Duration Indwelling Urinary Catheter 04/03/23 0240 Admission to [facility] 3 days OBJECTIVE: BP 154/90 Pulse 90 Temp 36.9 ?C (98.4 ?F) (Oral) Resp 16 Ht 160 cm (5' 3 ) Wt 58 kg (127 lb 13.9 oz) SpO2 98% BMI 22.65 kg/m? Body mass index is 22.65 kg/m?. GENERAL: Alert and oriented, no acute distress, cooperative. LUNGS: Non labored breathing ABDOMEN: Soft, nontender and mildly distended Labs: CBC, Coags, BMP, Mg, Phos Recent Labs 04/06/23 0142 04/04/23 0858 WBC 7.12 9.30 HB 12.7* 12.9* HCT 36.7* 38.3* PLT 359 363 NA 133* 131* K 3.5* 3.6* CHLOR 95* 95* CO2 22 20* BUN 7* 9 CREAT 0.64* 0.66* GLUC 72* 71* CA 9.0 8.9 MG 1.8 1.8 P 3.4 3.0 Liver Function, Amylase, AND Lipase I/O past 24h: Intake/Output Summary (Last 24 hours) at 04/06/2023 1035 Last data filed at 04/06/2023 0655 Gross per 24 hour Intake 1800 ml Output 2475 ml Net -675 ml LDA: Lines, Drains, and Airways Line Duration Peripheral 04/06/23 1006 Right Arm 22 Gauge <1 day Drain Duration Indwelling Urinary Catheter 04/03/23 0240 Admission to [facility] 3 days SURGERY/PROCEDURE: Procedure(s) and Anesthesia Type: * LAPAROSCOPY DIAGNOSTIC - General [facility] 04-05-2023 Note HNO ID: [id number] Author: Saravanan Interiano MD Service: General Surgery Author Type: Resident Type: Progress Notes Filed: 04/05/2023 12:35 PM Note Text: Documentation Query Based on your medical judgment of the clinical indicators outlined below, please clarify the condition: (Please type X next to your response and sign) Clinical Indicators: ...presented....for recurrent small bowel obstruction... 04/03/23 Labs: Potassium 3.6 Treatment: ...potassium chloride iv piggyback 20 mEq/100 mL) 200 Please clarify the diagnosis associated with the above clinical indicators: Hyperkalemia x Other, please specify hypokalemia _ [facility] 04-05-2023 Miscellaneous Notes Maru Prakash Flitch Hanger- phoned to let pcp know, patient went to [facility] ER and was admitted on 04-02-23 with intestinal obstruction and UTI, then transferred to [facility] Main on 04-03-23. Possible discharge tomorrow, 04-06-23 as the obstruction is resolving and will not need surgery. documented in this encounter [facility] 04-05-2023 Note HNO ID: [id number] Author: Saravanan Interiano MD Service: General Surgery Author Type: Resident Type: Progress Notes Filed: 04/05/2023 9:01 AM Note Text: GENERAL SURGERY SERVICE PROGRESS NOTE Jian Fuentes [id number] ASSESSMENT: Jian Fuentes is 57 year old PMHx spina bifida, hydrocephalus s/p SUSPECT ARTIST shunt placement (at 19 yo in ), neurogenic bladder s/p chronic bowman placement (follows with Dr. Prince at [facility]), and bilateral asymptomatic inguinal hernias who presented as transfer from [facility] for recurrent small bowel obstructions. Imaging shows a mid SBO with some distal small bowel. Patient is currently being managed conservatively. Patient underwent SBFT on 04/04 with contrast reaching colon in 60 mins, presentation more consistent with decreased intestinal motility vs functional. PLAN of Care: - GI consult for dilated colon. - Clamp trail today, if passed will advance to clears - Suppository ( patient on daily suppository at home) - Diet: NPO, IVFs - Pain: multimodal - Abx: Levaquin ( uti) - Chronic bowman, strict I/O - incentive spirometry 10x/hr, wean O2 as tolerated - Activity - OOB ambulating TID, OOB to chair TID - DVT prx: SQH, SCDs - Dispo RNF. Approaching discharge, can be medically cleared tomorrow if NGT clamp trail passed. Appreciate CM assistance and PT/OT irving Interiano MD General Surgery, PGY 1 For team paging 6AM-6PM during weekdays: Acute Care Surgery (ACS) Day Floor Pager: [phone] Acute Care Surgery (ACS) Day Consults Pager: [phone] On nights (6 pm to 6 am) and on Weekends/Holidays, please page the on-call pager: [phone] Subjective INTERVAL HPI: NAEON NGT with 100 cc Objective BP 136/76 Pulse 75 Temp (Src) 97.9 (Axillary) Resp 16 Ht 5' 3 (1.60m) Wt 127 lb 13.9 oz (58.0kg) SpO2 95% BMI 22.66 kg/(m2). O2 Therapy: Room Air Date 04/04/23 0700 - 04/05/23 0659 04/05/23 07 - 04/06/23 0659 Shift 8323-6690 0441-1462 2525-9063 24 Hour Total 9883-9763 5138-9999 5109-7535 24 Hour Total INTAKE PO 0 0 0 0 PO 0 0 0 0 Supplements (mL) 0 0 0 IV 950 950 Volume (mL) (levoFLOXacin iv piggyback 750 mg in D5W 150 mL (LEVAQUIN)) 150 150 Volume (mL) (potassium chloride iv piggyback 20 mEq/100 mL) 200 200 Volume (mL) (lactated ringers iv infusion) 600 600 Irrigants 40 40 Irrigant/Flush Amount In (GI Feed 04/03/23240 Admission to Hospital Gastric Left [facility]aris) 40 40 Shift Total 990 0 0 990 OUTPUT Urine 750 1320 385 2220 Output ( Indwelling Urinary Catheter 04/03/23239 Admission to [facility]) 750 2660 924 5786 Emesis 0 0 Emesis (ml) 0 0 Tubes 100 0 300 400 Output (GI Feed 04/03/23240 Admission to Hospital Gastric Left [facility]aris) 100 0 300 400 # of BMs Number of BMs 0 x 0 x Shift Total 850 1025 1150 3025 Weight (kg) 58 58 58 58 58 58 58 58 Lines, Drains, and Airways Line Duration Peripheral 04/04/23 1323 Short Right Hand 20 Gauge <1 day Drain Duration GI Feed 04/03/23240 Admission to Hospital Gastric Left [facility]aris 2 days Indwelling Urinary Catheter 04/03/23239 Admission to [facility] 2 days OBJECTIVE: BP 136/76 Pulse 75 Temp 36.6 ?C (97.9 ?F) (Axillary) Resp 16 Ht 160 cm (5' 3 ) Wt 58 kg (127 lb 13.9 oz) SpO2 95% BMI 22.65 kg/m? Body mass index is 22.65 kg/m?. GENERAL: Alert and oriented, no acute distress, cooperative. LUNGS: Non labored breathing ABDOMEN: Soft, nontender and moderately distended, left inguinal region with more fullness - both inguinal regions soft. NGT in place with minimal bilious output WOUND: N/A Labs: CBC, Coags, BMP, Mg, Phos Recent Labs 04/04/23 0858 04/03/23 0604 04/03/23 0603 WBC 9.30 9.15 -- HB 12.9* 14.0 -- HCT 38.3* 41.6 -- PLT 363 357 -- INR -- 1.1 -- APTT -- 21.7* -- NA 131* -- 134* K 3.6* -- 3.6* CHLOR 95* -- 98 CO2 20* -- 24 BUN 9 -- 11 CREAT 0.66* -- 0.80 GLUC 71* -- 94 CA 8.9 -- 8.8 MG 1.8 -- -- P 3.0 -- -- Liver Function, Amylase, AND Lipase Recent Labs 04/03/23 0603 TPROT 6.6 ALB 3.7* ALT 8* AST 10* ALKPHOS 58 TBILI 0.6 I/O past 24h: Intake/Output Summary (Last 24 hours) at 04/05/2023 0834 Last data filed at 04/05/2023 0600 Gross per 24 hour Intake 990 ml Output 3025 ml Net -2035 ml LDA: Lines, Drains, and Airways Line Duration Peripheral 04/04/23 1323 Short Right Hand 20 Gauge <1 day Drain Duration GI Feed 04/03/23 0241 Admission to Hospital Gastric Left Naris 2 days Indwelling Urinary Catheter 04/03/23 0240 Admission to [facility] 2 days SURGERY/PROCEDURE: Procedure(s) and Anesthesia Type: * LAPAROSCOPY DIAGNOSTIC - General [facility] 04-04-2023 Note HNO ID: [id number] Author: Arian Nichols RN Service: Care Management Author Type: Registered Nurse Type: Care Mgt Initial Assessment Filed: 04/04/2023 3:20 PM Note Text: CARE MANAGEMENT: ASSESSMENT AND DISCHARGE PLAN SERVICE DATE: April 04, 2023 SERVICE TIME: 3:16 PM PCP: Lyndon Estes MD Primary Contact: Extended Emergency Contact Information Primary Emergency Contact: Lesli Bansal Relation: Sister Secondary Emergency Contact: Isadora Fuentes Mobile Relation: Sister Admission Status: Inpatient Insurance Provider: [employer] [facility] Discharge Planning requested by: Attending Provider Potential Transition Plans To Be Determined Advance Directives Current Advance Directive: Health Care Power of [place] Floor Walker In Chart: No Current Living Arrangements and Support Lives with: Family members Type of Residence: Private Residence (House) Support: Family members How do you manage to accomplish the following: Independent: Ambulation;Bathe/Shower;Dress;Me als/Meal Prep;Going to the bathroom;Medication Management Needs Assistance: Transportation to appointments/community Current Services/Equipment Current Post-Acute Service(s): DME Current DME Type: Cane, Wheelchair-manual Discharge Planning Patient Goal(s): Be able to go home, General wellness Jay of Choice Explained: Jay of Choice Given: No Reason Not Given: No placements necessary Are you interested in bedside delivery of your medications? No Discharge Planning Participant(s): Patient Patient/Family Comments: Caregiver Assessment: Caregiver is ready, willing and able to meet the patient's needs as recommended by the inter-professional team: No Caregiver needed Transport at Discharge: Transportation Arrangements: Car Needs Prior to Discharge: Needs Prior to Discharge: To Be Determined Post-Acute Discharge Plan: 57 year old male with PMHx spina bifida, hydrocephalus s/p SUSPECT ARTIST shunt placement (at 19 yo in ), neurogenic bladder s/p chronic bowman placement who was transferred 04/03 from [facility] for recurrent small bowel obstructions. Needs TBD. Family to transport at D/C. SIGNATURE: Arian Nichols RN PATIENT NAME: Jian Fuentes DATE: April 04, 2023 TIME: 3:16 PM CONTACT #: [phone] [facility] 04-04-2023 Note HNO ID: [id number] Author: Johanna Read RT(R) Service: Radiology Author Type: Technologist Type: Progress Notes Filed: 04/04/2023 10:53 AM Note Text: Radiology Service Progress Note PATIENT NAME: Jian Fuentes DATE OF SERVICE: April 04, 2023 TIME: 10:53 AM PATIENT IDENTITY VERIFICATION COMPLETED USING TWO (2) IDENTIFIERS: Name and Date of confirmed by patient verbally. FALL SCREENING: Has the patient had 2 falls in the last year or 1 fall with injury or currently using an Ambulatory Assistive Device (Walker, Cane, Wheelchair, Crutches, etc.)? Inpatient: Screened on floor PATIENT GENDER DATA: Male PATIENT RELEVANT IMPLANT DATA REVIEWED: Not Applicable RADIOLOGY DEPARTMENT: General X-ray: Exam(s) Completed: GI/ Procedure(s): Small bowel series with water soluable contrast PERIPHERAL IV DATA: Not applicable SIGNED BY: Johanna Read, RT(R) April 04, 2023 10:[address] [facility] 04-04-2023 Note HNO ID: [id number] Author: Saravanan Interiano MD Service: General Surgery Author Type: Resident Type: Progress Notes Filed: 04/04/2023 8:44 AM Note Text: GENERAL SURGERY SERVICE PROGRESS NOTE Jian Fuentes [id number] ASSESSMENT: Jian Fuentes is 57 year old PMHx spina bifida, hydrocephalus s/p SUSPECT ARTIST shunt placement (at 19 yo in ), neurogenic bladder s/p chronic bowman placement (follows with Dr. Prince at [facility]), and bilateral asymptomatic inguinal hernias who presented as transfer from [facility] for recurrent small bowel obstructions. Imaging shows a mid SBO with some distal small bowel. Patient is currently being managed conservatively. PLAN of Care: - Awaiting SBFT. Premedicated for h/o of contrast allergy ( per patient anaphylactic reaction) - Diet: NPO, IVFs - NGT - Pain: multimodal - Abx: Levaquin ( uti) - Chronic bowman, strict I/O - incentive spirometry 10x/hr, wean O2 as tolerated - Activity - OOB ambulating TID, OOB to chair TID - DVT prx: SQH, SCDs - Dispo RNF Saravanan Interiano MD General Surgery, PGY 1 For team paging 6AM-6PM during weekdays: Acute Care Surgery (ACS) Day Floor Pager: [phone] Acute Care Surgery (ACS) Day Consults Pager: [phone] On nights (6 pm to 6 am) and on Weekends/Holidays, please page the on-call pager: [phone] Subjective INTERVAL HPI: NAEON NGT with 750 cc Objective BP 140/74 Pulse 81 Temp (Src) 98.6 (Axillary) Resp 16 Ht 5' 3 (1.60m) Wt 127 lb 13.9 oz (58.0kg) SpO2 95% BMI 22.66 kg/(m2). O2 Therapy: Room Air Date 04/03/23 07 - 04/04/23 0659 04/04/23 07 - 04/05/23 0659 Shift 1513-1609 0678-1850 8604-4152 24 Hour Total 4190-6782 4323-3744 0710-1598 24 Hour Total INTAKE PO 0 0 PO 0 0 IV 979 160 6756 Volume (mL) (levoFLOXacin iv piggyback 750 mg in D5W 150 mL (LEVAQUIN)) 150 150 Volume (mL) (potassium chloride iv piggyback 20 mEq/100 mL) 200 200 Volume (mL) (lactated ringers iv infusion) 900 900 Shift Total 350 0 900 1250 OUTPUT Urine 350 875 484 5865 Output ( Indwelling Urinary Catheter 04/03/23239 Admission to [facility]) 350 831 713 6927 Tubes 0 500 250 750 Output (GI Feed 04/03/23240 Admission to Hospital Gastric Left Naris) 0 500 250 750 # of BMs Number of BMs 0 x 0 x 0 x 0 x Shift Total 350 1200 1125 2675 Weight (kg) 58 58 58 58 58 58 58 58 Lines, Drains, and Airways Line Duration Peripheral 04/03/23 0230 Admission to Hospital Short Left Arm 20 Gauge 1 day Drain Duration GI Feed 04/03/23240 Admission to Hospital Gastric Left Naris 1 day Indwelling Urinary Catheter 04/03/23239 Admission to [facility] 1 day OBJECTIVE: BP 140/74 Pulse 81 Temp 37 ?C (98.6 ?F) (Axillary) Resp 16 Ht 160 cm (5' 3 ) Wt 58 kg (127 lb 13.9 oz) SpO2 95% BMI 22.65 kg/m? Body mass index is 22.65 kg/m?. GENERAL: Alert and oriented, no acute distress, cooperative. LUNGS: Non labored breathing ABDOMEN: Soft, mild diffuse tenderness and distended, left inguinal region with more fullness - both inguinal regions soft WOUND: N/A Labs: CBC, Coags, BMP, Mg, Phos Recent Labs 04/03/23 0604/03/23 06 WBC 9.15 -- HB 14.0 -- HCT 41.6 -- PLT 357 -- INR 1.1 -- APTT 21.7* -- NA -- 134* K -- 3.6* CHLOR -- 98 CO2 -- 24 BUN -- 11 CREAT -- 0.80 GLUC -- 94 CA -- 8.8 Liver Function, Amylase, AND Lipase Recent Labs 04/03/23 0603 TPROT 6.6 ALB 3.7* ALT 8* AST 10* ALKPHOS 58 TBILI 0.6 I/O past 24h: Intake/Output Summary (Last 24 hours) at 04/04/2023 0843 Last data filed at 04/04/2023 0600 Gross per 24 hour Intake 1250 ml Output 2675 ml Net -1425 ml LDA: Lines, Drains, and Airways Line Duration Peripheral 04/03/23 0230 Admission to Hospital Short Left Arm 20 Gauge 1 day Drain Duration GI Feed 04/03/23 0241 Admission to Hospital Gastric Left Naris 1 day Indwelling Urinary Catheter 04/03/23 0240 Admission to [facility] 1 day SURGERY/PROCEDURE: Procedure(s) and Anesthesia Type: * LAPAROSCOPY DIAGNOSTIC - General [facility] documented as of this encounter (statuses as of 04/14/2023) [facility]05-21-2023 History of Past illness Narrative* Problem Noted Date Resolved Date Small bowel obstruction 04/03/2023 04/06/20 23 CP (CEREBRAL PALSY - INFANTILE) HEMIPLEGIA, TESFAYE ENITAL 02/02/2008 05/22/2013 documented as of this encounter (statuses as of 04/15/2023) [facility] History of Past illness Narrative* Problem Noted Date Resolved Date Small bowel obstruction 04/03/2023 04/06/20 23 CP (CEREBRAL PALSY - INFANTILE) HEMIPLEGIA, TESFAYE ENITAL 02/02/2008 05/22/2013 documented as of this encounter (statuses as of 04/21/2023) [facility] History of Past illness Narrative* Problem Noted Date Resolved Date Small bowel obstruction 04/03/2023 04/06/20 23 CP (CEREBRAL PALSY - INFANTILE) HEMIPLEGIA, TESFAYE ENITAL 02/02/2008 05/22/2013 documented as of this encounter (statuses as of 05/04/2023) [facility] History of Past illness Narrative* Problem Noted Date Resolved Date Small bowel obstruction 04/03/2023 04/06/20 23 CP (CEREBRAL PALSY - INFANTILE) HEMIPLEGIA, TESFAYE ENITAL 02/02/2008 05/22/2013 documented as of this encounter (statuses as of 05/19/2023) [facility] History of Past illness Narrative* Problem Noted Date Resolved Date Small bowel obstruction 04/03/2023 04/06/20 23 SBO (small bowel obstruction) 04/14/2022 CP (CEREBRAL PALSY - INFANTILE) HEMIPLEGIA, TESFAYE ENITAL 02/02/2008 05/22/2013 documented as of this encounter (statuses as of 05/20/2023) [address]21-2023 History of Past illness Narrative* Problem Noted Date Resolved Date Small bowel obstruction 04/03/2023 04/06/20 23 SBO (small bowel obstruction) 04/14/2022 CP (CEREBRAL PALSY - INFANTILE) HEMIPLEGIA, TESFAYE ENITAL 02/02/2008 05/22/2013 documented as of this encounter (statuses as of 05/20/2023) [address]-2023 History of Past illness Narrative* Problem Noted Date Diagnosed Date Resolved Date Small bowel obstruction 04/03/202303/15 SBO (small bowel obstruction) 04/14/2022 05/19/2023 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, 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 05/22/2013 documented as of this encounter (statuses as of 05/24/2023) [facility] History of Past illness Narrative* Problem Noted Date Diagnosed Date Resolved Date Small bowel obstruction 04/03/202303/15 SBO (small bowel obstruction) 04/14/2022 05/19/2023 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, 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 05/22/2013 documented as of this encounter (statuses as of 05/30/2023) [address]-2023 History of Past illness Narrative* Problem Noted Date Diagnosed Date Resolved Date Small bowel obstruction 04/03/2023 0502/2023 SBO (small bowel obstruction) 04/14/2022 05/19/2023 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, 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 05/22/2013 documented as of this encounter (statuses as of 06/10/2023) [address]-2023 History of Past illness Narrative* Problem Noted Date Diagnosed Date Resolved Date Small bowel obstruction 04/03/202303/15 SBO (small bowel obstruction) 04/14/2022 05/19/2023 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, 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 05/22/2013 documented as of this encounter (statuses as of 06/14/2023) [facility] History of Past illness Narrative* Problem Noted Date Diagnosed Date Resolved Date Small bowel obstruction 04/03/202303/15 SBO (small bowel obstruction) 04/14/2022 05/19/2023 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, 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 05/22/2013 documented as of this encounter (statuses as of 06/14/2023) [facility] History of Past illness Narrative* Problem Noted Date Diagnosed Date Resolved Date Small bowel obstruction 04/03/202303/15 SBO (small bowel obstruction) 04/14/2022 05/19/2023 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, 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 05/22/2013 documented as of this encounter (statuses as of 06/29/2023) [facility] History of Past illness Narrative* Problem Noted Date Diagnosed Date Resolved Date Small bowel obstruction 04/03/202303/15 SBO (small bowel obstruction) 04/14/2022 05/19/2023 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, 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 05/22/2013 documented as of this encounter (statuses as of 07/05/2023) [facility] History of Past illness Narrative* Problem Noted Date Diagnosed Date Resolved Date Small bowel obstruction 04/03/202303/15 SBO (small bowel obstruction) 04/14/2022 05/19/2023 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, 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 05/22/2013 documented as of this encounter (statuses as of 07/13/2023) [facility] History of Past illness Narrative* Problem Noted Date Diagnosed Date Resolved Date Small bowel obstruction 04/03/202303/15 SBO (small bowel obstruction) 04/14/2022 05/19/2023 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, 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 05/22/2013 documented as of this encounter (statuses as of 08/04/2023) [facility] History of Past illness Narrative* Problem Noted Date Diagnosed Date Resolved Date Small bowel obstruction 04/03/202303/15 SBO (small bowel obstruction) 04/14/2022 05/19/2023 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, 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 05/22/2013 documented as of this encounter (statuses as of 08/05/2023) [facility] History of Past illness Narrative* Problem Noted Date Diagnosed Date Resolved Date Small bowel obstruction 04/03/202303/15 SBO (small bowel obstruction) 04/14/2022 05/19/2023 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, 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 05/22/2013 documented as of this encounter (statuses as of 08/12/2023) [facility] History of Past illness Narrative* Problem Noted Date Diagnosed Date Resolved Date Small bowel obstruction 04/03/202303/15 SBO (small bowel obstruction) 04/14/2022 05/19/2023 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, 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 05/22/2013 documented as of this encounter (statuses as of 08/16/2023) [facility] History of Past illness Narrative* Problem Noted Date Diagnosed Date Resolved Date Small bowel obstruction 04/03/202303/15 SBO (small bowel obstruction) 04/14/2022 05/19/2023 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, 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 05/22/2013 documented as of this encounter (statuses as of 08/20/2023) [address]21-2023 History of Past illness Narrative* Problem Noted Date Diagnosed Date Resolved Date Small bowel obstruction 04/03/202303/15 SBO (small bowel obstruction) 04/14/2022 05/19/2023 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, 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 05/22/2013 documented as of this encounter (statuses as of 08/20/2023) [facility]05-21-2023 History of Past illness Narrative* Problem Noted Date Diagnosed Date Resolved Date Small bowel obstruction 04/03/202303/15 SBO (small bowel obstruction) 04/14/2022 05/19/2023 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, 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 05/22/2013 documented as of this encounter (statuses as of 09/05/2023) [facility]05-21-2023 History of Past illness Narrative* Problem Noted Date Diagnosed Date Resolved Date Small bowel obstruction 04/03/202303/15 SBO (small bowel obstruction) 04/14/2022 05/19/2023 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 Prince at [facility]), and bilateral asymptomatic inguinal hernias who presented as transfer from [facility] for recurrent small bowel obstructions. Imaging shows a mid SBO with some distal small bowel. Patient is currently being managed conservatively. PLAN of Care: - Awaiting SBFT. Tentatively added on for diagnostic laparoscopy tomorrow - Diet: NPO, IVFs - NGT - Pain: multimodal - Abx: Levaquin ( uti) - Chronic bowman, strict I/O - incentive spirometry 10x/hr, wean O2 as tolerated - Activity - OOB ambulating TID, OOB to chair TID - DVT prx: SQH, SCDs - Dispo RNF Saravanan Interiano MD General Surgery, PGY 1 For team paging 6AM-6PM during weekdays: Acute Care Surgery (ACS) Day Floor Pager: [phone] Acute Care Surgery (ACS) Day Consults Pager: [phone] On nights (6 pm to 6 am) and on Weekends/Holidays, please page the on-call pager: [phone] Subjective INTERVAL HPI: NAEON since admission Objective BP 135/83 Pulse 85 Temp (Src) 98.1 (Oral) Resp 18 Ht 5' 3 (1.60m) Wt 127 lb 13.9 oz (58.0kg) SpO2 97% BMI 22.66 kg/(m2). O2 Therapy: Room Air Date 04/02/23 07 - 04/03/23 06(Not Admitted) 04/03/23 07 - 04/04/23 0659 Shift 9312-0731 5771-0552 7805-4571 24 Hour Total 4107-0658 7532-1772 2135-2452 24 Hour Total INTAKE IV 200 200 Volume (mL) (lactated ringers iv infusion) 200 200 Irrigants 60 60 Irrigant/Flush Amount In (GI Feed 04/03/23240 Admission to Hospital Gastric Left Naris) 60 60 Shift Total 260 260 OUTPUT Urine 400 400 Output ( Indwelling Urinary Catheter 04/03/23239 Admission to Hospital Bowman) 400 400 Tubes 800 800 Output (GI Feed 04/03/23240 Admission to Hospital Gastric Left Naris) 800 800 Shift Total 1200 1200 Weight (kg) 58 58 58 58 58 58 Lines, Drains, and Airways Line Duration Peripheral 04/03/23 0230 Admission to Hospital Short Left Arm 20 Gauge <1 day Drain Duration GI Feed 04/03/23 024 Admission to Hospital Gastric Left Naris <1 day Indwelling Urinary Catheter 04/03/23 0240 Admission to Hospital Bowman <1 day OBJECTIVE: BP 135/83 Pulse 85 Temp 36.7 ?C (98.1 ?F) (Oral) Resp 18 Ht 160 cm (5' 3 ) Wt 58 kg (127 lb 13.9 oz) SpO2 97% BMI 22.65 kg/m? Body mass index is 22.65 kg/m?. GENERAL: Alert and oriented, no acute distress, cooperative. LUNGS: Non labored breathing ABDOMEN: Soft, mild diffuse tenderness and distended, left inguinal region with more fullness - both inguinal regions soft WOUND: N/A Labs: CBC, Coags, BMP, Mg, Phos Recent Labs 04/03/23 0604/03/23 06 WBC 9.15 -- HB 14.0 -- HCT 41.6 -- PLT 357 -- INR 1.1 -- APTT 21.7* -- NA -- 134* K -- 3.6* CHLOR -- 98 CO2 -- 24 BUN -- 11 CREAT -- 0.80 GLUC -- 94 CA -- 8.8 Liver Function, Amylase, AND Lipase Recent Labs 04/03/23 06 TPROT 6.6 ALB 3.7* ALT 8* AST 10* ALKPHOS 58 TBILI 0.6 I/O past 24h: Intake/Output Summary (Last 24 hours) at 04/03/2023 0841 Last data filed at 04/03/2023 0655 Gross per 24 hour Intake 260 ml Output 1200 ml Net -940 ml LDA: Lines, Drains, and Airways Line Duration Peripheral 04/03/23 0230 Admission to Hospital Short Left Arm 20 Gauge <1 day Drain Duration GI Feed 04/03/23 0241 Admission to Hospital Gastric Left Naris <1 day Indwelling Urinary Catheter 04/03/23 0240 Admission to Hospital Bowman <1 day SURGERY/PROCEDURE: * Surgery not found *[facility]04-25-2023 NoteHNO ID: [id number] Author: Katiana Hoyos RN Service: ? Author Type: Registered Nurse Type: Progress Notes Filed: 03/08/2023 3:04 PM Note Text: TRANSITION CARE MANAGEMENT (TCM) FOLLOW-UP NOTE Provider Action/FYI Discharge Network Status: Exm-nd-Locfhfw (OON) Discharge Summary: Pt discharged from [facility] on 02/24/23. Admitted for: Ileus, UTI Concerns: Attempted to reach pt for TCM follow up, VM left for sister Lesli with CC contact information. Encouraged to contact PCP for questions or concerns. Bus Inspector plan for next outreach: Will continue to follow during TCM 30 day period Signature Katiana Hoyos RN March 08[facility]04-25-2023 History of Present illness Narrative* Katiana Hoyos RN - 03/08/2023 3:00 PM EDT TRANSITION CARE MANAGEMENT (TCM) FOLLOW-UP NOTE Provider Action/FYI Discharge Network Status: Gmg-zm-Tisypgz (OON) Discharge Summary: Pt discharged from [facility] on 02/24/23. Admitted for: Ileus, UTI Concerns: Attempted to reach pt for TCM follow up, VM left for sister Lesli with CC contact information. Encouraged to contact PCP for questions or concerns. Bus Inspector plan for next outreach: Will continue to follow during TCM 30 day period Signature Katiana Hoyos RN March 08, 2023 documented [facility] NotePatient Outreach (AMBCMG) JIAN FUENTES ([id number]) 1965 M Date Time Provider Department 03/08/23 KATIANA HOYOS During your visit today, we recorded the following information about you: Katiana Hoyos RN 03/08/2023 3:04 PM Signed TRANSITION CARE MANAGEMENT (TCM) FOLLOW-UP NOTE Provider Action/FYI Discharge Network Status: Dyn-xb-Jfwncfu (OON) Discharge Summary: Pt discharged from [facility] on 02/24/23. Admitted for: Ileus, UTI Concerns: Attempted to reach pt for TCM follow up, VM left for sister Lesli with CC contact information. Encouraged to contact PCP for questions or concerns. Bus Inspector plan for next outreach: Will continue to follow during TCM 30 day period Signature Katiana Hoyos RN March 08, 2023 Allergies As of Date: 03/08/2023 Noted Allergy Reaction CONTRAST DYE 10/29/2010 10 - Anaphylaxis FD AND C BLUE NO.1 07/29/2006 IODINATED CONTRAST MEDIA 12/11/2020 10 - Anaphylaxis MACRODANTIN (NITROFURANTOIN MACRO*10/29/2010 8 - GI Upset NITROFURANTOIN 12/11/2020 8 - GI Upset PHENYTOIN 07/29/2006 Date Reviewed: 01/27/2023 Reviewed by: Sarahy Monet - Fully Assessed Reason for Visit: Transition Of Care [4074] Cmt: TCM follow up Prescriptions as of 03/08/2023 - linaCLOtide (LINZESS) 290 mcg capsule Take 1 capsule by mouth DAILY (6 AM). - MOTEGRITY 2 mg tab tablet TAKE 1 TABLET BY MOUTH EVERY DAY - baclofen (LIORESAL) 5 mg tablet Take 1 tablet by mouth three times daily. - bisacodyl (DULCOLAX) 10 mg supp Bisacodyl Active 10 MG RC NEEDED 0 January 24, 2022 10:15am OTC Meds Comments as of 11/01/2020: 11/01/2020 Pt's sister stating pt not taking Cipro at this time, completed course of atb. 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 03-03-2023 NoteHNO ID: [id number] Author: Kaitlynn Mitchell MA Service: ? Author Type: Dulite Machine Bluer Type: Progress Notes Filed: 03/03/2023 10:04 AM Note Text: POPULATION HEALTH NAVIGATION OUTREACH Action/March 03, 2023 2nd attempt - spoke with pt's sister who declines appt at this time. Sister states she will contact PCP's office directly with any updates or to schedule if she feels the need. TCM eligible through 03/10/23 Pt discharged from [facility] on 02/24/23. Admitted for: Ileus, UTI Patient Identified by Name and : YES, via phone Outreach Outcome/Action Spoke to patient / parent / legal guardian: Patient declined Did you use a PCP flex slot to schedule this appointment? N/A Reason for Outreach [facility] Monitoring [place] Payer: Payor: SUZY PERDUE / Plan: ANTHEM MEDIBLUE HMO / Product Type: HMO / Care Gap Reviewed:: Follow-up appointment Reminder: Reminder note to check Health Maintenance for items below Health Maintenance items due: COLORECTAL CANCER SCREENING due on 03/27/2022 COVID-19 VACCINE(4 - Booster for Moderna series) due on 06/14/2022 Navigation Signature: Kaitlynn Mitchell MA March 03, 2023 9:56 [facility]04-18-2023 NoteHNO ID: [id number] Author: Ros Paez MA Service: ? Author Type: Dulite Machine Bluer Type: Progress Notes Filed: 03/01/2023 5:11 PM Note Text: POPULATION HEALTH NAVIGATION OUTREACH Action/March 01, 2023 Pt discharged from [facility] on 02/24/23. Admitted for: Ileus, UTI TCM Eligible through 03/10/2023 Outcome/Action Unable to reach patient. Person on other hung up phone x 2 times MC letter sent Postponed x 2 days Ros Paez MA Patient Identified by Name and : NO Outreach Outcome/Action Unable to reach patient: Left message MyChart message sent Did you use a PCP flex slot to schedule this appointment? N/A Reason for Outreach [facility] [place] Payer: Payor: SUZY PERDUE / Plan: ANTHEM MEDIBLUE HMO / Product Type: HMO / Care Gap Reviewed:: Follow-up appointment Reminder: Reminder note to check Health Maintenance for items below Health Maintenance items due: COLORECTAL CANCER SCREENING due on 03/27/2022 COVID-19 VACCINE(4 - Booster for Moderna series) due on 06/14/2022 Navigation Signature: Ros Paez MA March 01, 2023 5:00 [facility]04-18-2023 NoteHNO ID: [id number] Author: Katiana Hoyos RN Service: ? Author Type: Registered Nurse Type: Progress Notes Filed: 03/01/2023 4:56 PM Note Text: TRANSITIONAL CARE MANAGEMENT (TCM) COMMUNITY MONITORING PROGRAM Provider Action/FYI: PCP Pt discharged from [facility] on 02/24/23. Admitted for: Ileus, UTI Per sister Lesli Pt is feeling better Denies CP or acute pain, SOB, N/V, fever or chills Bowman draining clear yellow urine BM 03/02 Ambulating with canes or wheelchair Appetite is good, eating and hydrating Denies questions or concerns at this time Upcoming appointments PCP 08/03 Copied from Care Everywhere cefdinir 300 mg BID - New - finished yesterday Linzess 290 mcg daily baclofen 5 MG TID Small Bowel X-Ray 02/22/23 13:15 IMPRESSION: Although transit time is abnormal at somewhere around 16.5 hours, the Gastrografin does make it into the colon. No demonstrated obstruction, findings are system with both small and large bowel ileus. Follow-up with his urologist who is at the [facility] concerning your bladder stone -Sister will contact Dr. Nazario's office tomorrow Navigation Team Please assist with scheduling [facility] Hospital Discharge Follow up. TCM Eligible until 03/10/23. OON DC Thank you SUMMARY: Discharge Network Status: Uvj-bj-Kgebpha (OON) Discharge Pt discharged from [facility] on 02/24/23. Admitted for: Ileus, UTI Contact made with patient: Yes Hi my name is Katiana Hoyos RN and I am calling from the [facility] on behalf of your PCP, Lyndon Estes MD I understand you were recently in the hospital so I am calling to check in with you to ensure you are feeling well now that you're home. May I ask you a few questions related to your hospital stay and well-being? Yes Contact with patient post discharge, spoke to sister. Niecy Ballesteros is involved in patients care. Patient identified by name and . Do you feel your health is BETTER, WORSE, or the SAME since leaving the hospital? Better ACTION TAKEN: Patient indicated symptoms are better or same, no action required. Continue outreach. MEDICATIONS: Many patients have questions or concerns about their medications once they are home. Do you have any questions about taking your medications or which medication you should be on? No Do you need any medication refills at this time, including any of the medications you might take only when needed? No ACTION TAKEN: No action required For RNs or Pharmacy completing outreach ONLY, was a medication review completed? Yes SOCIAL: We would like to make sure you have what you need so that your basics needs are met - including your personal safety, food, housing and medications. Would you like to speak with a social work seafood team member to help give you support for any of these needs? No It can be normal to feel anxious or down during a time like this. Would you like to talk to a mental health professional about how you have been feeling? No ACTION TAKEN: No action taken DISCHARGE INTRUCTIONS: Your discharge instructions / After Visit Summary (AVS) are important in guiding you through the recovery process. Do you have any questions related to your discharge instructions? No Do you have all the necessary equipment and supplies at home? Yes ACTION TAKEN: No action required I would like to help you schedule a hospital follow-up virtual or telephone visit with your PCP. This is a great way for you to connect with your provider to ensure you have safely transitioned home. If you are agreeable, I will send your request to a radiology scheduler who will contact and assist you with that appointment. This will give you an opportunity to ask any questions or address any concerns you may have with your PCP. Inform the patient that if they have any questions or concerns prior to that appointment, to call their PCP's office right away. ACTION TAKEN: Patient desires an appointment - Routed to [facility] [[id number]] for scheduling telehealth visit (telephonic, virtual visit, or Facetime) within 7 days of discharge with PCP care team. Indicate hospital follow-up appointment needed within 7 days in Provider/FYI box. End Outreach. Your doctor would like us to remind you of the recommendations regarding the coronavirus (Covid19) outbreak: Avoid public places as much as possible. Avoid close contact (within 6 feet) with others you don?t live with, especially if they are sick. Stay home if you are sick. Wash your hands regularly for at least 20 seconds with soap and water. Wear a cloth mask in public places to help reduce community spread. Do not go to your Doctor?s office unless instructed to do so. For any non-emergency symptoms, call your Doctor?s office to get instructions on how to manage (we might recommend a telephone or virtual visit). For emergency symptoms, proceed to Rohini (more content not included)...[facility]04-18-2023 NotePatient Outreach (AMBCMG) JIAN FUENTES ([id number]) 1965 M Date Time Provider Department 03/01/23 KATIANA HOYOS During your visit today, we recorded the following information about you: Katiana Hoyos RN 03/01/2023 4:56 PM Signed TRANSITIONAL CARE MANAGEMENT (TCM) COMMUNITY MONITORING PROGRAM Provider Action/FYI: PCP Pt discharged from [facility] on 02/24/23. Admitted for: Ileus, UTI Per sister Lesli Pt is feeling better Denies CP or acute pain, SOB, N/V, fever or chills Bowman draining clear yellow urine BM 03/02 Ambulating with canes or wheelchair Appetite is good, eating and hydrating Denies questions or concerns at this time Upcoming appointments PCP 08/03 Copied from Care Everywhere cefdinir 300 mg BID - New - finished yesterday Linzess 290 mcg daily baclofen 5 MG TID Small Bowel X-Ray 02/22/23 13:15 IMPRESSION: Although transit time is abnormal at somewhere around 16.5 hours, the Gastrografin does make it into the colon. No demonstrated obstruction, findings are system with both small and large bowel ileus. Follow-up with his urologist who is at the [facility] concerning your bladder stone -Sister will contact Dr. Nazario's office tomorrow Navigation Team Please assist with scheduling TCM Hospital Discharge Follow up. TCM Eligible until 03/10/23. OON DC Thank you SUMMARY: Discharge Network Status: Yei-py-Cwcbomz (OON) Discharge Pt discharged from [facility] on 02/24/23. Admitted for: Ileus, UTI Contact made with patient: Yes Hi my name is Katiana Hoyos RN and I am calling from the [facility] on behalf of your PCP, Lyndon Estes MD I understand you were recently in the hospital so I am calling to check in with you to ensure you are feeling well now that you're home. May I ask you a few questions related to your hospital stay and well-being? Yes Contact with patient post discharge, spoke to sister. Niecy Ballesteros is involved in patients care. Patient identified by name and . Do you feel your health is BETTER, WORSE, or the SAME since leaving the hospital? Better ACTION TAKEN: Patient indicated symptoms are better or same, no action required. Continue outreach. MEDICATIONS: Many patients have questions or concerns about their medications once they are home. Do you have any questions about taking your medications or which medication you should be on? No Do you need any medication refills at this time, including any of the medications you might take only when needed? No ACTION TAKEN: No action required For RNs or Pharmacy completing outreach ONLY, was a medication review completed? Yes SOCIAL: We would like to make sure you have what you need so that your basics needs are met - including your personal safety, food, housing and medications. Would you like to speak with a social work seafood team member to help give you support for any of these needs? No It can be normal to feel anxious or down during a time like this. Would you like to talk to a mental health professional about how you have been feeling? No ACTION TAKEN: No action taken DISCHARGE INTRUCTIONS: Your discharge instructions / After Visit Summary (AVS) are important in guiding you through the recovery process. Do you have any questions related to your discharge instructions? No Do you have all the necessary equipment and supplies at home? Yes ACTION TAKEN: No action required I would like to help you schedule a hospital follow-up virtual or telephone visit with your PCP. This is a great way for you to connect with your provider to ensure you have safely transitioned home. If you are agreeable, I will send your request to a radiology scheduler who will contact and assist you with that appointment. This will give you an opportunity to ask any questions or address any concerns you may have with your PCP. Inform the patient that if they have any questions or concerns prior to that appointment, to call their PCP's office right away. ACTION TAKEN: Patient desires an appointment - Routed to [facility] [[id number]] for scheduling telehealth visit (telephonic, virtual visit, or Facetime) within 7 days of discharge with PCP care team. Indicate hospital follow-up appointment needed within 7 days in Provider/FYI box. End Outreach. Your doctor would like us to remind you of the recommendations regarding the coronavirus (Covid19) outbreak: Avoid public places as much as possible. Avoid close contact (within 6 feet) with others you don?t live with, especially if they are sick. Stay home if you are sick. Wash your hands regularly for at least 20 seconds with soap and water. Wear a cloth mask in public places to help reduce community spread. Do not go to your Doctor?s office unless instructed to do so. For a (more content not included)...[facility]04-14-2023 Miscellaneous Notes * Telephone Encounter - Lesli Burton Ma - 02/25/2023 1:04 PM EDT Marisabel was notified with provider response Lesli Burton Ma * Telephone Encounter - Lyndon Estes MD - 02/25/2023 12:55 PM EDT ok * Telephone Encounter - Juan Daniel Finn RN - 02/25/2023 12:48 PM EDT Marisabel, [facility], reports patient was discharged yesterday from [facility] with orders for HHC. Marisabel spoke with sister, who is caregiver, and requested delay / resumption of care until 02-28-23. Please phone Marisabel with verbal approval. documented in this [facility]Gre[facility]04-[facility]-2023 Miscellaneous Notes* Telephone Encounter - Juan Daniel Finn RN - 02/23/2023 8:09 AM EDT Aurelio Prakash- phoned to let pcp know, patient was admitted to [facility] on 02-20-23 with ileus and is still an inpatient. documented in this encounterGreene [facility] Hospital04-06-2023 Miscellaneous Notes* Telephone Encounter - Kishor Briseno - 02/17/2023 10:54 AM EDT Patient's request for medication is as follows: Requested Prescriptions Pending Prescriptions Disp Refills linaCLOtide (LINZESS) 290 mcg capsule 30 capsule 3 Sig: Take 1 capsule by mouth DAILY (6 AM). Please send this med to [facility] pharmacy in [place], [place] on [address] [facility] [address]. documented in this encounterGreene [facility] Hospital04-05-2023 Miscellaneous Notes* Telephone Encounter - Kaylee Greenberg LPN - 02/16/2023 12:27 PM EDT Completed and faxed. * Telephone Encounter - Rich Guajardo LPN - 02/16/2023 10:22 AM EDT Type of form: Home Health Care Orders Form received via fax When form is completed, Fax form to [phone] Form has been forwarded to Physician Mailbox: Dr. Tommy Guajardo LPN documented in this encounterGreene [facility] Hospital03-31-2023 Miscellaneous Notes* Telephone Encounter - Kaylee Greenberg LPN - 02/11/2023 4:44 PM EDT Signed and faxed as requested. * Telephone Encounter - Rich Guajardo LPN - 02/11/2023 3:16 PM EDT Type of form: Home Health Care Orders Form received via fax When form is completed, Fax form to [phone] Form has been forwarded to Physician Mailbox: Dr. Tommy Guajardo LPN documented in this encounterGreene Memorial Hospital03-31-2023 Miscellaneous Notes* Telephone Encounter - Daniela Nelson RN - 02/11/2023 12:20 PM EDT Moriah calling from [facility] to report plan of care for patient and SN will visit patient 1 time a monthfor a month and 1 times a week for 2 weeks. SN will work with patient on bowman placement, disease management, and medication education. Moriah reports no call back needed if provider agrees with POC. Daniela Nelson RN documented in this encounterGreene Memorial Hospital03-17-2023 Miscellaneous Notes* Telephone Encounter - Kaylee Greenberg LPN - 01/28/2023 12:44 PM EDT Notified sister Darrion and verbalizes understanding. * Telephone Encounter - Lyndon Estes MD - 01/28/2023 12:14 PM EDT Sodium has dropped again. I think we discussed before that they pushed plain water. Change to something like gatorade etc. Recheck bmp in one week documented in this encounterGreene Memorial Hospital03-16-2023 NoteHNO ID: [id number] Author: Lyndon Estes MD Service: ? Author Type: Physician Type: Progress Notes Filed: 01/27/2023 2:37 PM Note Text: Patient presents with: 6 Month Exam HPI: Patient presents today for office visit for follow up. Patient states overall feeling pretty good. Seeing Dr. Mansi Lugo Continue current bowel regimen. Linzess increased and Motegrity added. Seems to be a lot of confusion about the Motegrity. Patient has not started yet. Sister seems confused about things. Patient was in the ER back in December sister thinks. Due to nausea and abdomen firmness. Seeing Urology. Last seen 10/12/22. Cath changes monthly. Next change 01/28/23. Sister thinks he has a uti. Urine has sludge. No fever or chills. No hematuria. No vomiting or abd pain. Bowels are workign well. No chest pain or shortness of breath. MEDICATIONS: Current Outpatient Medications Medication Sig MOTEGRITY 2 mg tab tablet TAKE 1 TABLET BY MOUTH EVERY DAY linaCLOtide (LINZESS) 290 mcg capsule Take 1 capsule by mouth DAILY (6 AM). baclofen (LIORESAL) 5 mg tablet Take 1 tablet by mouth three times daily. bisacodyl (DULCOLAX) 10 mg supp Bisacodyl Active 10 MG RC NEEDED 0 January 24, 2022 10:15am OTC No current facility-administered medications for this visit. ALLERGIES: ALLERGIES Allergen Reactions Contrast Dye Anaphylaxis Fd And C Blue No.1 Iodinated Contrast * Anaphylaxis Macrodantin [Nitrof* GI Upset Nitrofurantoin GI Upset Phenytoin PAST MEDICAL HISTORY Diagnosis Date Bowel dysfunction Constipation Hydrocephalus (HCC) Inguinal hernia left - imaging at [facility] Sleep apnea Spina bifida (HCC) Urinary retention PAST SURGICAL HISTORY Procedure Laterality Date CRTJ SHUNT [id number] TERMINUS EGD W/O BRSH SPEC VARICIES INJ 08/06/2021 PAST SURGICAL HISTORY OF repair of hamstring FAMILY HISTORY Problem Relation Age of Onset Allergies Father Stroke Other Arthritis Other Cancer Brother lung cancer Asthma Sister other (head injury) Sister Social History Tobacco Use Smoking status: Never Smokeless tobacco: Never Substance Use Topics Alcohol use: No Drug use: No Reviewed current medications, allergies, past medical history, surgical history, family history and social history today. REVIEW OF SYSTEMS All other reviewed and negative other than HPI. HEALTH MAINTENANCE: Reviewed health maintenance issues today and recommended the following in detail. HEPATITIS B(1 of 3 - 3-dose series) Never done HEPATITIS C SCREENING -declines HIV SCREENING -declines. SHINGRIX VACCINE(1 of 2) Never done COLORECTAL CANCER SCREENING - per gi. COVID-19 VACCINE(4 - Booster for Moderna series) due on 06/14/2022 DEPRESSION ASSESSMENT Never done PROSTATE CANCER SCREENING DISCUSSION - defer to urology. Had discussion with patient regarding risks and benefits of prostate screening. VITALS: BP 134/82 Pulse 85 Wt 54 kg (119 lb) SpO2 98% BMI 21.08 kg/m? Last 4 Encounter Wt Readings: Date: Wt: 10/04/2022 54 kg (119 lb) 08/24/2022 54 kg (119 lb) 07/30/2022 54 kg (119 lb) 06/11/2022 55.8 kg (123 lb) PHYSICAL EXAMINATION: General appearance: Well appearing, alert, in no acute distress, well-hydrated, well nourished. Skin: Skin color, texture, turgor normal, no suspicious rashes or lesions Head: Normocephalic, no masses, lesions, tenderness or abnormalities Lungs: Lungs clear to auscultation. No wheezing, rhonchi, rales Heart: RRR without murmur, gallop, or rubs. No ectopy Abdomen: Normal abdominal exam, Abdomen soft, non-tender. Bowel sounds normal. No masses, organomegaly Extremities: No deformities, edema, skin discoloration, clubbing or cyanosis. Good capillary refill. Musculoskeletal: No joint swelling, deformity, or tenderness Peripheral pulses: Normal Neuro: no change. Bowman shows sediment in it. ASSESSMENT/PLAN: 1. Urine abnormality - ICD9: 791.9, ICD10: R82.90 (primary diagnosis) - send urine for culture. Cover with keflex. - URINE CULTURE - CEPHALEXIN 250 MG CAPSULE 2. Congenital hydrocephalus (HCC) - ICD9: 742.3, ICD10: Q03.9 - doing well. 3. Spina bifida with hydrocephalus, unspecified spinal region (HCC) - ICD9: 741.00, ICD10: Q05.4 - stable. 4. Neurogenic bladder - ICD9: 596.54, ICD10: N31.9 - stable. 5. Abnormality of gait - ICD9: 781.2, ICD10: R26.9 - stable. Lyndon Estes, [facility]02-06-2023 Miscellaneous Notes* Telephone Encounter - Stephanie Wahl LPN - 12/20/2022 10:28 AM EST NEIL Hankinsagriculture manager for [facility] calling to let you know pt was d/c from [facility] on 12-15-22. Pt had a large bowel blockage. (FYI pt was sent there because there was no beds at [facility] per Nhi). Stephanie Wahl LPN documented in this encounterGreene Memorial Hospital02-03-2023 Miscellaneous Notes* Telephone Encounter - Melodie Kim RN - 12/17/2022 1:05 PM EST Sallie at [facility] notified by detailed VM on her identified line. Melodie Kim RN * Telephone Encounter - Juan Daniel Finn RN - 12/17/2022 9:38 AM EST Sallie- [facility] asking for approval for POC to see patient 2 x month for 2 months for bowman catheter change and recertification. Please phone Sallie with verbal. documented in this encounterGreene Memorial Hospital02-02-2023 Miscellaneous Notes* Telephone Encounter - Kishor Briseno - 12/16/2022 3:20 PM EST Patient's sister, Darrion, is asking what medication Dr Nazario is suggesting for him. She said there was a laxative that Dr Nazario suggested that she can't remember. Darrion is asking what should she do now? She would like to speak with Dr Nazario to discuss her brother'scurrent update now. documented in this encounterGreene Memorial Hospital02-01-2023 NoteSend Summary: Discharge Summary Providers: Provider RoleProvider Name AttendingMiMaddie Simms Note Recipients: Correct Info, Needed, Von Bass MD Miller-Ocuin, Jennifer L, MD Required, No Pcp, Discharge: Summary: Admission Date: .11-Dec-2022 08:52:00 Discharge Date: 15-Dec-2022 Attending Physician at Discharge: Maddie Thornton Admission Reason: Obstipation Final Discharge Diagnoses: Obstipation, Obstruction of colon Procedures: none Condition at Discharge: Satisfactory Disposition at Discharge: Home Health Care - Resumed Vital Signs: T PRBPMAPSpO2 Value35.89250939/8692% Date/Time12/15 5:542/ 5:542/ 5:542/1 5:542/1 5:54 Range(35.9C - 37.1C ) (72 - 102 ) (16 - 18 ) (117 - 148 )/ (77 - 88 ) (92% - 96% ) Highest temp of 37.1 C was recorded at 12/14 9:24 Date: Weight/Scale Type:Height: 11-Dec-2022 16:1954.4 kg / hfb129.9 cm Physical Exam: Constitutional: Pleasant, calm and cooperative resting in bed, no apparent distress Pulmonary: Lungs CTAB, chest expansion symmetric, unlabored on room air Cardiac: RRR Abdominal: Soft, round, nontender, and nondistended : Voiding via chronic Bowman catheter Extremities: ROM intact, Pato Psychological: Appropriate for discharge Discharge instructions reviewed. Total time with patient today was 30 minutes, all of which was spent counseling patient on resuming home bowel regimen and contacting Dr. Chidi Mitchell office with any further questions or concerns. Hospital Course: Jian Fuentes is a 57 year old Male with a history of congenital hydrocephalus s/p remote SUSPECT ARTIST shunt (revision at 19yo), bowel dysmotility, neurogenic bladder, HTN, HLD, and seizures who presented to an OSH with abdominal pain. He endorsed nausea with bilious emesis and flatus or stool in over 24 hours. Has a long-standing history of bowel dysmotility requiring daily enemas and suppositories. He endorsed a history of multiple admissions in the past for SBO. CT obtained at OSH showed large stool burden, diffuse dilation, and possible rectosigmoid narrowing. He was given a bowel regimen with enema and suppositories. He was noted to have good result with return of bowel function with stool and flatus. His diet was advanced as tolerated. He endorsed feeling well without abdominal discomfort and bloating and he was discharged home with family. He discharged home with a bowel regime and will follow up with home primary care doctor as needed. Discharge Information: and Continuing Care: Lab Results - Pending: None Radiology Results - Pending: None Discharge Instructions: Activity: activity as tolerated. May shower.. May not drive. Weight-bearing Instructions: full weight bearing. Nutrition/Diet: resume normal diet Encourage Fluids: Drink plenty of a variety of fluids to prevent dehydration. Signs of dehydration are: dry mouth, dark yellow urine in small amounts, and dizziness with change in position or increased feeling of weakness/tiredness. Catheter Care: Type: indwelling Catheter Care: soap and water Catheter Care Frequency: Twice daily and as needed Catheter Change: Change once per month per usual routine Additional Orders: Additional Instructions: Continue home bowel regimen Drink plenty of a variety of fluids to prevent dehydration. Signs of dehydration are: dry mouth, dark yellow urine in small amounts, and dizziness with change in position or increased feeling of weakness/tiredness. Infectious Disease: PPD Status: not given MRSA: no VRE: no C. 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, for monthly Bowman catheter change Home Care Services: Home Care Skilled Service: bowman catheter Follow Up Appointments: Follow-Up Appointment 01: Physician/Dept/Service: Dr Thornton Reason for Referral: Colorectal Surgeon Discharge Medications: Home Medication baclofen 5 mg oral tablet - 1 tab(s) orally 3 times a day linaclotide 290 mcg oral capsule - 1 cap(s) orally once a day with first meal of the day PRN Medication DNR Status: Code StatusCode Status order at time of discharge: Full Code Electronic Signatures: Long Saldaña ([employer]AN[employer]) (Signed 15-Dec-2022 13:32) Authored: Send Summary, Summary Content, Ongoing Care, DNR Status, Note Completion Last Updated: 15-Dec-2022 13:32 by Long Saldaña (FINANCIAL [employer])[facility]01-31-2023 Miscellaneous Notes* Telephone Encounter - Daniela Nelson RN - 12/14/2022 10:15 AM EST Nhi mendoza with [facility] calls to let provider know that patient was transferred to [facility] instead of [facility]. Not certain as to why but they are discussing discharge planning at this time. Daniela Nelson RN documented in this encounterGreene Memorial Hospital01-28-2023 NoteClinical Note - Pharmacy v2: Education: Document TopicMedication Education MedicationMeds to Beds: Patient accepts Meds to Beds service at discharge, please send prescriptions to [facility]. Sources used to confirm home medication list: Family interview with sister Darrion Barrow (patient's drum builder), Continuity of Care Document [facility] 12/11/2022, fill history Additional comments: Patient's sister reports he takes baclofen at 6 AM, 2 PM, and 10 PM daily Medication reconciliation complete Please reach out via [email or web address] for questions Wesley Mueller PharmD PGY-1 Family Consumer Science [employer] Teacher Meds Ambulatory and Retail Services Is This Intervention Medication Reconciliation Relatedyes Time [id number] minutes Additional NotesHome Medications Review Status for Reconciliation: Complete Med Status: Patient Currently Takes Medications Drug Name: baclofen 5 mg oral tablet (Takes at 6 AM, 2 PM, and 10 PM) Instructions: 1 tab(s) orally 3 times a day Drug Name: linaclotide 290 mcg oral capsule Instructions: 1 cap(s) orally once a day with first meal of the day Allergy: Allergies Summary Allergy Allergen: DrugAllergiesUnable to Obtain Type: Reaction: Allergen: Ionic contrasts Type: Contrast Reaction: Anaphylaxis Electronic Signatures: Wesley Mueller ([facility]) (Signed 11-Dec-2022 14:53) Authored: Education, Allergy Yobani Romero ([facility]) (Signed 11-Dec-2022 18:26) Co-Signer: Stuart, Allergy Last Updated: 11-Dec-2022 18:26 by Yobani Romero ([facility]01-28-2023 NoteHistory of Present Illness: HPI: JIAN FUENTES is a 57 year old Male with Hx congenital hydrocephalus s/p remote SUSPECT ARTIST shunt (revision at 19yo), bowel dysmotility, neurogenic bladder, HTN, HLD, seizures who presented to OSH with abdominal pain. Patent reports that he had one day of crampy abdominal pain, diffuse, started yesterday, associated with multiple bouts of nausea and bilious emesis. Reports last BM was yesterday in the day, hasn't passed flatus since. Has a long-standing history of bowel dysmotility requiring daily enemas and suppositories. Reports having multiple admission for SBOs managed without surgery. CT obtained at OSH was read as sigmoid volvulus ; however, in house review showed large stool burden, diffuse dilation, possible rectosigmoid narrowing due to compression from stool. Prior colonoscopy two years ago reported to be tortuous but otherwise unremarkable. PMH: congenital hydrocephalus, gastroparesis, HTN, hyponatremia, seizures, prior small bowel obstructions PSH: remote SUSPECT ARTIST shunt Allergies: None FHX: noncontributory Meds: baclofen 5mg TID, linzess Social history: no alcohol / tobacco / recreational drugs. Ambulatory with significant assistance. Lives at home and cared for by sister ROS: 12-pt ROS was unremarkable unless otherwise indicated above in HPI Comorbidities: Comorbidites: Comorbid Conditionshypertension Family History: Family History: reviewed and not pertinent to presenting problem Social History: Social History: Smoking Statusnever smoker Alcohol Usedenies Drug Usedenies Allergies: DrugAllergiesUnable to Obtain: Ionic contrasts: Anaphylaxis Medications Prior to Admission: Outpatient Meds have not been reviewed. Review of Systems: Constitutional: NEGATIVE: Fever, Chills, Malaise Eyes: NEGATIVE: Blurry Vision, Vision Loss/ Change ENMT: NEGATIVE: Nasal Discharge, Throat Pain Respiratory: NEGATIVE: Dry Cough, Shortness of Breath Cardiac: NEGATIVE: Chest Pain, Syncope Gastrointestinal: POSITIVE: Nausea, Vomiting, Constipation Genitourinary: NEGATIVE: Discharge Musculoskeletal: NEGATIVE: Decreased ROM, Swelling, Stiffness Neurological: NEGATIVE: Dizziness, Confusion Psychiatric: NEGATIVE: Mood Changes, Anxiety Skin: NEGATIVE: Mass, Rash Hematologic/Lymph: NEGATIVE: Anemia, Bruising Allergic/Immunologic: NEGATIVE: Anaphylaxis All Other Systems: All other systems reviewed and are negative Objective: Objective Information: T PRBPMAPSpO2 Value36.84942354/9095% Date/Time12/11 9: 12: 12: 12: 12:16 Range(36.8C - 36.8C ) (89 - 94 ) (17 - 18 ) (129 - 141 )/ (90 - 93 ) (95% - 96% ) Pain reported at 12/11 9:02: 2 = Mild Weights 12/11 9:02: Weight in lbs ((lbs)) 118.8 12/11 9:02: Weight in kg (Weight (kg)) 53.9 12/11 9:02: BMI (kg/m2) (BMI (kg/m2)) 21.054 Physical Exam by System: Constitutional: NAD, AAO, lying comfortably in bed Eyes: EOMI ENMT: MMM, NGT with gastric output in cannister Head/Neck: Trachea midline Respiratory/Thorax: No conversational dyspnea, on RA, symmetric chest rise Cardiovascular: RR per bedside monitor Gastrointestinal: soft, minimally distended, nontender Genitourinary: Chronic bowman in place Musculoskeletal: ESQUIVEL Extremities: warm and well perfused, no edema Psychological: Appropriate mood and behavior Skin: warm, no cyanosis or jaundice Medications: Medications: Continuous Medications No continuous medications are active Scheduled Medications 1. diphenhydrAMINE Injectable: 50 mg IntraVenous Push Once 2. Gastrografin 15 mL - No Flavoring - in 450 mL Clear Fluid (Pre-Exam): 1 dose(s) Oral Once 3. Iohexol (Omnipaque 350-Radiology Contrast): 80.85 mL IntraVenous Push Once 4. methylPREDNISolone Sodium Succinate Injectable: 40 mg IntraVenous Push Every 4 Hours PRN Medications No PRN medications are active Recent Lab Results: Results: CBC: 12/11/2022 09:28 \ Hgb / \ 12.9 L / WBC Plt 8.0 358 / Hct \ / 36.4 L \ RBC: 4.39 L MCV: 83 Neutrophil %: 62.2 RFP: 12/11/2022 09:28 NA+ Cl- BUN / 127 L 98 13 / Glucose 106 H K+ HCO3- Creat \ 4.0 24 0.70 \ Calcium : 8.1 LAnion Gap : 9 L Albumin : 3.4 Phos : 2.9 Coagulation: 12/11/2022 09:28 PT / 12.4 / -------< INR < 1.1 PTT\ 29 \ Assessment and Plan: Assessment: JIAN FUENTES is a 57 year old Male with Hx congenital hydrocephalus s/p remote SUSPECT ARTIST shunt (revision at 19yo), bowel dysmotility, neurogenic bladder, HTN, HLD, seizures who presented to OSH with abdominal pain c/f significant constipation vs rectosigmoid narrowing. Plan: -2x tap water enemas now to (more content not included)...[facility]12-19-2022 Miscellaneous Notes* Telephone Encounter - Mabel Lopez LPN - 11/01/2022 2:40 PM EST Called Cori- left message. We can see patient in clinic for cathter changes but understood previously that skilled care in place for several care issues with one being transportation and being able to get patient to clinic forcare. Mabel Lopez LPN * Telephone Encounter - Isadora Rea LPN - 11/01/2022 12:43 PM EST Janay with [facility] called, stating patient sister took catheter out of Nurse hand when going to place new one in patient, the patient sister proceeded to place catheter in patient, later that evening removed catheter stating it was not working and took to ER. Sister stated ER Placed a 14French instead of 16 [facility]. Home health is frustrated with the sister, and want to know if they should continue bowman changes or can it be done in office? Please advise. Thank you. Cori# [phone] * Telephone Encounter - Mercy Noonan RN - 10/29/2022 1:32 PM EST Shruthi from [facility] calls and states that she had changed Bowman catheter today. intermediate is decreasing their frequency of visits to 1 time a month. Next visit is 11/23/2022 where they will re-certify patient again. Mercy Noonan RN documented in this encounterGreene Memorial Hospital12-09-2022 Miscellaneous Notes* Telephone Encounter - Kaylee Greenberg LPN - 10/22/2022 10:33 AM EST Left detailed message as advised. * Telephone Encounter - Lyndon Estes MD - 10/22/2022 8:29 AM EST Ok to do * Telephone Encounter - Stephanie Wahl LPN - 10/22/2022 8:15 AM EST Sallie with [facility], nursing called to get a verbal order to move apt from today to reevaluate. Apt was to be today but pt has declined apt today and asking to have next week. Please call Sallie with verbal order. Okay to leave a message. [phone]. Stephanie Wahl LPN documented in this encounterGreene Memorial Hospital11-29-2022 NoteHNO ID: [id number] Author: Marcelo Prince MD Service: ? Author Type: Physician Type: Progress Notes Filed: 10/12/2022 4:09 PM Note Text: [facility] UROLOGY HISTORY AND PHYSICAL ESTABLISHED PATIENT VISIT PATIENT: Jian Fuentes : 1965 DATE OF SERVICE: October 12, 2022 HISTORY OF PRESENT ILLNESS: Jain Fuentes is a 56 year old male with history of hydrocephalous, recurrent small bowel obstructions, bilateral inguinal hernias, and neurogenic bladder who presents to clinic today for follow-up for bladder stones/calcified debris, recurrent UTI and chronic indwelling bowman catheter. Patient has had urethral bowman (16 Fr) exchanged multiple times with prior discussions focused on consideration of SP or ileal conduit if other surgery planned. Patient was admitted to [facility] for SBO on 04/14/2022 and was treated conservatively managed with gastric decompression. Patient has been admitted to local hospital 5 times since July for febrile UTI (ESBL UTI) associated with bladder stone, hyponatremia, SBO. CT imaging at OSH on 09/10 revealed right posterior bladder diverticulum containing calcified material, calcified material along the posterior bladder wall, and anterior bladder wall thickening. Negative for hematuria. Chronic indwelling 16 Fr urethral bowman with mild debris in urine. Currently on aggressive bowel regimen including daily suppositories and enemas. SUBJECTIVE AND REVIEW OF SYSTEMS: General: SEE HPI ENMT: No earaches, No hearing loss, No nose, sinus problems or snoring, No dry mouth, mouth ulcers or sore throat, No thrush Eyes:Not Significant Respiratory: Negative for cough, wheezing or shortness of breath. Cardiovascular: Negative for chest pain, leg swelling or palpitations. Gastrointestinal: Constipation and Positive for small bowel obstructions Genitourinary: Chronic indwelling urethral bowman, recurrent UTIs Musculoskeletal: Contracted muscles Skin: Negative for lesions, rash, and itching. Neuro: Hydrocephalus [x] The remainder of the ROS was reviewed and was negative; see HPI above OBJECTIVE: ALLERGIES: ALLERGIES Allergen Reactions Contrast Dye Anaphylaxis Fd And C Blue No.1 Iodinated Contrast * Anaphylaxis Macrodantin [Nitrof* GI Upset Nitrofurantoin GI Upset Phenytoin MEDICATIONS: Current Outpatient Medications Medication Sig MOTEGRITY 2 mg tab tablet TAKE 1 TABLET BY MOUTH ONCE DAILY. linaCLOtide (LINZESS) 290 mcg capsule Take 1 capsule by mouth DAILY (6 AM). baclofen (LIORESAL) 5 mg tablet Take 1 tablet by mouth three times daily. bisacodyl (DULCOLAX) 10 mg supp Bisacodyl Active 10 MG RC NEEDED 0 January 24, 2022 10:15am OTC No current facility-administered medications for this visit. PAST MEDICAL HISTORY: PAST MEDICAL HISTORY Diagnosis Date Bowel dysfunction Constipation Hydrocephalus (HCC) Inguinal hernia left - imaging at [facility] Sleep apnea Spina bifida (HCC) Urinary retention PAST SURGICAL HISTORY Procedure Laterality Date CRTJ SHUNT [id number] TERMINUS EGD W/O BRSH SPEC VARICIES INJ 08/06/2021 PAST SURGICAL HISTORY OF repair of hamstring VITALS: There were no vitals taken for this visit. PHYSICAL EXAM: Physical Exam performed by: GEN: [x] NAD [] AANDO x __ [] Lethargic []Arousable [] Unresponsive [] Other: LUNGS: [x] CTAB [] Wheezing [] Crackles [] Coughing [] Other: HEART: [x] RRR [] MURMUR [] EKG changes [] Other: ABD/: [x] Soft [x] NT [x] ND [] Tender to palpation [] Distended [] Firm [] Rigid [x] Other: Bilateral inguinal hernias appreciated, 16 Fr urethral bowman inserted draining CYU EXT: [x] No edema [x] BLE pulses [x] Warm [] Cool [] Edema [] Non pitting [] Pitting []Others: LAB REVIEW Creatinine Date Value Ref Range Status 09/03/2022 0.63 (L) 0.73 - 1.22 mg/dL Final 08/24/2022 0.56 (L) 0.73 - 1.22 mg/dL Final 07/30/2022 0.74 0.73 - 1.22 mg/dL Final 04/19/2022 0.71 (L) 0.73 - 1.22 mg/dL Final IMAGING: CT A/P from OSH (09/10) - Right posterior bladder diverticulum containing calcified material, posterior calcification of the bladder wall, and anterior bladder wall thickening. ASSESSMENT/PLAN PHYSICIAN NOTE OF PERSONAL INVOLVEMENT IN CARE: Staff Note: I reviewed the above HPI/EXAM with the fellow/R.N. and discussed findings face to face with patient and agreed with giraldo findings and plan. IMPRESSION: 56 year old male with history of hydrocephalous, recurrent small bowel obstructions, bilateral inguinal hernias, and neurogenic bladder who presents to clinic today for follow-up for bladder stones/calcified debris, recurrent UTI and chronic indwelling bowman catheter. Herniation of left anterior bladder noted on prior CT with calcified matierial in area of herniation. PLAN: - Relatively stable bladder stone/calcification burden - Deferring on SP tube placement fo (more content not included)...[facility]11-29-2022 NotePatient Outreach (UROLMN) JIAN FUENTES ([id number]) 1965 M Date Time Provider Department 10/12/22 MARCELO PRINCE UROMARCO ANTONION During your visit today, we recorded the following information about you: Allergies As of Date: 10/12/2022 Noted Allergy Reaction CONTRAST DYE 10/29/2010 10 - Anaphylaxis FD AND C BLUE NO.1 07/29/2006 IODINATED CONTRAST MEDIA 12/11/2020 10 - Anaphylaxis MACRODANTIN (NITROFURANTOIN MACRO*10/29/2010 8 - GI Upset NITROFURANTOIN 12/11/2020 8 - GI Upset PHENYTOIN 07/29/2006 Date Reviewed: 10/12/2022 Reviewed by: Long Man MA - Fully Assessed Visit Diagnosis:Screening for genitourinary condition [Z13.89] Order(s):URINALYSIS, REFLEX MICROSCOPIC [[id number]] Order #: [id number] Prescriptions as of 10/15/2022 - MOTEGRITY 2 mg tab tablet TAKE 1 TABLET BY MOUTH EVERY DAY - linaCLOtide (LINZESS) 290 mcg capsule Take 1 capsule by mouth DAILY (6 AM). - baclofen (LIORESAL) 5 mg tablet Take 1 tablet by mouth three times daily. - bisacodyl (DULCOLAX) 10 mg supp Bisacodyl Active 10 MG RC NEEDED 0 January 24, 2022 10:15am OTC Meds Comments as of 11/01/2020: 11/01/2020 Pt's sister stating pt not taking Cipro at this time, completed course of atb. Matt Gutierrez Problem List As Of Date 10/12/2022 Noted Resolved CONGENITAL HYDROCEPHALUS [Q03.9] 02/02/2008 CP (CEREBRAL PALSY - INFANTILE) HEMIPLEGIA, CON*02/02/2008 05/22/2013 Myelodysplasia [YGT5554] 05/22/2013 Deformity of ankle and foot, acquired [M21.969] 07/31/2015 Weakness [R53.1] 07/31/2015 Abnormality of gait [R26.9] 07/31/2015 Spina bifida (HCC) [Q05.9] 08/22/2018 Neurogenic bladder [N31.9] 08/22/2018 Benign prostatic hyperplasia with urinary reten*08/29/2020 Right inguinal hernia [K40.90] 04/06/2021 Hydrocephalus (HCC) [G91.9] 04/06/2021 Urinary retention [R33.9] 04/06/2021 SBO (small bowel obstruction) (HCC) [K56.609] 04/14/2022 History of brain shunt [Z98.2] 07/16/2022 Encounter Status:Closed by EPIC, PRODUSER on 10/15/22[facility] 10-12-2022 History of Present illness Narrative* Marcelo Prince MD - 10/12/2022 12:36 PM EST [facility] UROLOGY HISTORY AND PHYSICAL ESTABLISHED PATIENT VISIT PATIENT: Jian uFentes : 1965 DATE OF SERVICE: October 12, 2022 HISTORY OF PRESENT ILLNESS: Jian Fuentes is a 56 year old male with history of hydrocephalous, recurrent small bowel obstructions, bilateral inguinal hernias, and neurogenic bladder who presents to clinic today for follow-up for bladder stones/calcified debris, recurrent UTI and chronic indwelling bowman catheter. Patient has had urethral bowman (16 Fr) exchanged multiple times with prior discussions focused on consideration of SP or ileal conduit if other surgery planned. Patient was admitted to [facility] for SBO on 04/14/2022 and was treated conservatively managed with gastricdecompression. Patient has been admitted to local hospital 5 times since July for febrile UTI (ESBL UTI) associated with bladder stone, hyponatremia, SBO. CT imaging at [facility] on 09/10 revealed right posterior bladder diverticulum containing calcified material, calcified material along the posterior bladder wall, and anterior bladder wall thickening. Negative for hematuria. Chronic indwelling 16 Fr urethral bowman with mild debris in urine. Currently on aggressive bowel regimen including daily suppositories and enemas. SUBJECTIVE AND REVIEW OF SYSTEMS: General: SEE HPI ENMT: No earaches, No hearing loss, No nose, sinus problems or snoring, No dry mouth, mouth ulcers or sore throat, No thrush Eyes:Not Significant Respiratory: Negative for cough, wheezing or shortness of breath. Cardiovascular: Negative for chest pain, leg swelling or palpitations. Gastrointestinal: Constipation and Positive for small bowel obstructions Genitourinary: Chronic indwelling urethral bowman, recurrent UTIs Musculoskeletal: Contracted muscles Skin: Negative for lesions, rash, and itching. Neuro: Hydrocephalus [x] The remainder of the ROS was reviewed and was negative; see HPI above OBJECTIVE: ALLERGIES: ALLERGIES Allergen Reactions Contrast Dye Anaphylaxis Fd And C Blue No.1 Iodinated Contrast * Anaphylaxis Macrodantin [Nitrof* GI Upset Nitrofurantoin GI Upset Phenytoin MEDICATIONS: Current Outpatient Medications Medication Sig MOTEGRITY 2 mg tab tablet TAKE 1 TABLET BY MOUTH ONCE DAILY. linaCLOtide (LINZESS) 290 mcg capsule Take 1 capsule by mouth DAILY (6 AM). baclofen (LIORESAL) 5 mg tablet Take 1 tablet by mouth three times daily. bisacodyl (DULCOLAX) 10 mg supp Bisacodyl Active 10 MG RC NEEDED 0 January 24, 2022 10:15am OTC No current facility-administered medications for this visit. PAST MEDICAL HISTORY: PAST MEDICAL HISTORY Diagnosis Date Bowel dysfunction Constipation Hydrocephalus (HCC) Inguinal hernia left - imaging at [facility] apnea Spina bifida (HCC) Urinary retention PAST SURGICAL HISTORY Procedure Laterality Date CRTJ SHUNT [id number] TERMINUS EGD W/O BRSH SPEC VARICIES INJ 08/06/2021 PAST SURGICAL HISTORY OF repair of hamstring VITALS: There were no vitals taken for this visit. PHYSICAL EXAM: Physical Exam performed by: GEN: [x] NAD [] A&O x __ [] Lethargic []Arousable [] Unresponsive [] Other: LUNGS: [x] CTAB [] Wheezing [] Crackles [] Coughing [] Other: HEART: [x] RRR [] MURMUR [] EKG changes [] Other: ABD/: [x] Soft [x] NT [x] ND [] Tender to palpation [] Distended [] Firm [] Rigid [x] Other: Bilateral inguinal hernias appreciated, 16 Fr urethral bowman inserted draining CYU EXT: [x] No edema [x] BLE pulses [x] Warm [] Cool [] Edema [] Non pitting [] Pitting []Others: LAB REVIEW Creatinine Date Value Ref Range Status 09/03/2022 0.63 (L) 0.73 - 1.22 mg/dL Final 08/24/2022 0.56 (L) 0.73 - 1.22 mg/dL Final 07/30/2022 0.74 0.73 - 1.22 mg/dL Final 04/19/2022 0.71 (L) 0.73 - 1.22 mg/dL Final IMAGING: CT A/P from [facility] (09/10) - Right posterior bladder diverticulum containing calcified material, posterior calcification of the bladder wall, and anterior bladder wall thickening. ASSESSMENT/PLAN PHYSICIAN NOTE OF PERSONAL INVOLVEMENT IN CARE: Staff Note: I reviewed the above HPI/EXAM with the fellow/R.N. and discussed findings face to face with patient and agreed with giraldo findings and plan. IMPRESSION: 56 year old male with history of hydrocephalous, recurrent small bowel obstructions, bilateral inguinal hernias, and neurogenic bladder who presents to clinic today for follow-up for bladder stones/calcified debris, recurrent UTI and chronic indwelling bowman catheter. Herniation of leftanterior bladder noted on prior CT with calcified matierial in area of herniation. PLAN: - Relatively stable bladder stone/calcification burden - Deferring on SP tube placement for now - Continue routine bowman catheter exchanged, continue monitoring for febrile UTIs - Patient and caregiver to reach out if urinary comorbidities worsen Mahendra Escalante MD, MS Urology PGY-2 UROL Staff Reviewed PMH/PSH, medications and ROS noted by RN/resident. Agree with details. Long discussion with caregiver and patient. Overall he has had 1 febrile UTI. Stone burden is essentially no different from 02/2022. Discussed procedure to remove stones. She will consider and notify me if his condition worsens Marcelo Prince MD documented in this encounterGreene [facility] Hospital11-23-2022 Miscellaneous Notes* Telephone Encounter - Kaylee Greenberg LPN - 10/06/2022 12:11 PM EST Completed and faxed. * Telephone Encounter - Sarahy Monet - 10/04/2022 12:05 PM EST Physician order placed on Melbeta's desk for signature. Needs faxed back to [phone] Sarahy Monet documented in this encounterGreene Memorial Hospital11-21-2022 Instructions* Patient Instructions* Liz Villarreal PA-C - 10/04/2022 6:14 PM EST Dear Jian Fuentes, It was a pleasure seeing you and talking to you! Here are some things we discussed: -- continue your current bowel regimen -- Don't use any supplemental fiber, --Try to avoid more than one high-fiber food with any meal. --Increase Linzess to 290 mcg/d -- add Motegrity 2 mg once daily. Let's follow up virtually or via mychart after above or as needed. Please feel free to call with questions and concerns anytime. My PA Liz, nurse Aileen and secretary administrative assistant Kishor are also very familiar with you and they can help as well, but I am here for you anytime.Follow up appt at: [phone]. Scheduling number is: [phone] Best regards, Nayely Nazario M.D Mail List Processor, GI motility & pelvic floor clinic Department of Gastroenterology, Nutrition & Hepatology [facility] [place] [facility] documented in this encounterGreene Memorial Hospital11-21-2022 NoteHNO ID: [id number] Author: Nayely Nazario MD Service: ? Author Type: Physician Type: Progress Notes Filed: 10/05/2022 4:55 PM Note Text: DEPARTMENT OF GASTROENTEROLOGY - NEW PATIENT/CONSULT NEUROGASTROENTEROLOGY SECTION GI MOTILITY AND PELVIC FLOOR CLINIC REASON FOR VISIT Jian Fuentes is a 56 year old male who is scheduled at the request of Millie Conner for slow transit dysmotility. My final recommendations will be communicated back to the requesting physician by the way of the shared medical record, fax, or via US Mail.slow transit dysmotility HISTORY OF PRESENT ILLNESS Patient presents with sister (a BEAMER OPERATOR). Jian Fuentes is a 56 year old male who presents today for an evaluation of slow transit dysmotility. Wants to avoid bowel obstructions. Symptoms: -- Knows that he has a bowel obstruction when he's vomiting despite Zofran -- He also burps before bowel obstruction AND has concentrated urine -- He has BM's qd after glycerin supp (denies Dulcolax) AND tap water enema, sometimes has to walk Stopped Metamucil because sister suspects that may cause bowel obstruction but still eats fibrous foods/vegetables. Has hemorrhoids w/ occas. bleeding, on Linzess 145 mcg Has had 5 bowel obstruction in past 1-2 years, resolve spontaneously Had surgical consult 09/10/22 Has inguinal hernia containing portion of bladder Only surgery was A-V shunt Approx 1/mo has food slowly go down Weight is stable Is able to tolerate baclofen tid w/o aggravating constipation Has an upcoming sowmya't w/ Dr. Harrington Caffeine - zero, Non-smoker, alcohol - zero, stress d/t hospitalizations Worked at [employer] until COVID19 AND bowel problems becoming time consuming Reviewed extensive testing in the past 09/28/2022 XRAY ABDOMEN ([facility]) IMPRESSION: Persistent large bowel ileus. No evidence of SBO. EGD 08/06/2021([facility]) IMPRESSION: Normal esophagus Duodenal polyp, resected and retrieved Normal esophagus Normal stomach A single duodenal polyp, resected and retrieved. COLONOSCOPY 03/27/2021 Findings: The colon (entire examined portion) was moderately tortuous and redundant. It was also atonic without noticeable peritalsis during the examination Meds and therapies tried Kiwi, Linzess PAST MEDICAL HISTORY Diagnosis Date Bowel dysfunction Constipation Hydrocephalus (HCC) Inguinal hernia left - imaging at [facility] Sleep apnea Spina bifida (HCC) Urinary retention PAST SURGICAL HISTORY Procedure Laterality Date CRTJ SHUNT [id number] TERMINUS EGD W/O BRSH SPEC VARICIES INJ 08/06/2021 PAST SURGICAL HISTORY OF repair of hamstring Current Outpatient Medications Medication Sig Dispense Refill baclofen (LIORESAL) 5 mg tablet Take 1 tablet by mouth three times daily. 270 Each 3 linaclotide (LINZESS) 145 mcg capsule Take 1 capsule by mouth DAILY (6 AM). 90 capsule 1 bisacodyl (DULCOLAX) 10 mg supp Bisacodyl Active 10 MG RC NEEDED 0 January 24, 2022 10:15am OTC No current facility-administered medications for this visit. ALLERGIES Allergen Reactions Contrast Dye Anaphylaxis Fd And C Blue No.1 Iodinated Contrast * Anaphylaxis Macrodantin [Nitrof* GI Upset Nitrofurantoin GI Upset Phenytoin Social History Tobacco Use Smoking status: Never Smokeless tobacco: Never Substance Use Topics Alcohol use: No Drug use: No FAMILY HISTORY: No known GI or liver family history unless stated above. GI SPECIFIC REVIEW OF SYMPTOMS All ROS are negative unless specified in HPI REVIEW OF SYSTEMS Eyes Negative for vision changes, diplopia or epiphora. Ears, Mouth, nose, throat:No problems Cardiovascular: No Problems Respiratory: Negative for cough, wheezing and shortness of breath Gastrointestinal : per HPI Genitourinary: negative Musuloskeletal: Denies significant problems Integumentary: no rashes, lesions, or jaundice Neurological: No history of neurologic problems Endocrine: Negative for cold or heat intolerance, polyuria, polydipsia and goiter. Psychiatric: See above Allergic/ Immunologic: Negative All others negative PHYSICAL EXAMINATION BP 145/92 Pulse 89 Ht 5' 3 (1.60m) Wt 119 lb (54.0kg) SpO2 100% BMI 21.09 kg/(m2). General Appearance: Well appearing, alert, in no acute distress, well-hydrated, well nourished. Eyes: PERRLA, conjunctiva and sclera normal Oropharynx: Lips, tongue, and oral mucosa normal. There is no thrush or oral ulcers. Lungs:breath sounds clear to auscultation bilaterally, no crackles, rhonchi, or wheezes Heart: regular rate and rhythm, no murmurs or gallops. Abdomen: round, soft, nontender, w/o HSM or masses ?Shunt palpable in RUQ Rectal exam: Deferred. Extremities: no cyanosis or edema Skin: no jaundice, no spider angiomas, no palmar erythema Neuro:alert, oriented x 3, pleasant and in no acute distress RECENT LABS (more content not included)...[facility]11-21-2022 History of Present illness Narrative* Nayely Nazario MD - 10/04/2022 3:30 PM EST DEPARTMENT OF GASTROENTEROLOGY - NEW PATIENT/CONSULT NEUROGASTROENTEROLOGY SECTION GI MOTILITY & PELVIC FLOOR CLINIC REASON FOR VISIT Jian Fuentes is a 56 year old male who is scheduled at the request of Millie Conner for slow transit dysmotility. My final recommendations will be communicated back to the requesting physician by the way of the shared medical record, fax, or via US Mail.slow transit dysmotility HISTORY OF PRESENT ILLNESS Patient presents with sister (a BEAMER OPERATOR). Jian Fuentes is a 56 year old male who presents today for an evaluation of slow transit dysmotility. Wants to avoid bowel obstructions. Symptoms: -- Knows that he has a bowel obstruction when he's vomiting despite Zofran -- He also burps before bowel obstruction & has concentrated urine -- He has BM's qd after glycerin supp (denies Dulcolax) & tap water enema, sometimes has to walk Stopped Metamucil because sister suspects that may cause bowel obstruction but still eats fibrous foods/vegetables. Has hemorrhoids w/ occas. bleeding, on Linzess 145 mcg Has had 5 bowel obstruction in past 1-2 years, resolve spontaneously Had surgical consult 09/10/22 Has inguinal hernia containing portion of bladder Only surgery was A-V shunt Approx 1/mo has food slowly go down Weight is stable Is able to tolerate baclofen tid w/o aggravating constipation Has an upcoming sowmya't w/ Dr. Harrington Caffeine - zero, Non-smoker, alcohol - zero, stress d/t hospitalizations Worked at [employer] until COVID19 & bowel problems becoming time consuming Reviewed extensive testing in the past 09/28/2022 XRAY ABDOMEN ([facility]) IMPRESSION: Persistent large bowel ileus. No evidence of SBO. EGD 08/06/2021([facility]) IMPRESSION: Normal esophagus Duodenal polyp, resected and retrieved Normal esophagus Normal stomach A single duodenal polyp, resected and retrieved. COLONOSCOPY 03/27/2021 Findings: The colon (entire examined portion) was moderately tortuous and redundant. It was also atonic without noticeable peritalsis during the examination Meds and therapies tried Nish Espino PAST MEDICAL HISTORY Diagnosis Date Bowel dysfunction Constipation Hydrocephalus (HCC) Inguinal hernia left - imaging at [facility] Sleep apnea Spina bifida (HCC) Urinary retention PAST SURGICAL HISTORY Procedure Laterality Date CRTJ SHUNT [id number] TERMINUS EGD W/O BRSH SPEC VARICIES INJ 08/06/2021 PAST SURGICAL HISTORY OF repair of hamstring Current Outpatient Medications Medication Sig Dispense Refill baclofen (LIORESAL) 5 mg tablet Take 1 tablet by mouth three times daily. 270 Each 3 linaclotide (LINZESS) 145 mcg capsule Take 1 capsule by mouth DAILY (6 AM). 90 capsule 1 bisacodyl (DULCOLAX) 10 mg supp Bisacodyl Active 10 MG RC NEEDED 0 January 24, 2022 10:15am OTC No current facility-administered medications for this visit. ALLERGIES Allergen Reactions Contrast Dye Anaphylaxis Fd And C Blue No.1 Iodinated Contrast * Anaphylaxis Macrodantin [Nitrof* GI Upset Nitrofurantoin GI Upset Phenytoin Social History Tobacco Use Smoking status: Never Smokeless tobacco: Never Substance Use Topics Alcohol use: No Drug use: No FAMILY HISTORY: No known GI or liver family history unless stated above. GI SPECIFIC REVIEW OF SYMPTOMS All ROS are negative unless specified in HPI REVIEW OF SYSTEMS Eyes Negative for vision changes, diplopia or epiphora. Ears, Mouth, nose, throat:No problems Cardiovascular: No Problems Respiratory: Negative for cough, wheezing and shortness of breath Gastrointestinal : per HPI Genitourinary: negative Musuloskeletal: Denies significant problems Integumentary: no rashes, lesions, or jaundice Neurological: No history of neurologic problems Endocrine: Negative for cold or heat intolerance, polyuria, polydipsia and goiter. Psychiatric: See above Allergic/ Immunologic: Negative All others negative PHYSICAL EXAMINATION BP 145/92 Pulse 89 Ht 5' 3 (1.60m) Wt 119 lb (54.0kg) SpO2 100% BMI 21.09 kg/(m^2). General Appearance: Well appearing, alert, in no acute distress, well-hydrated, well nourished. Eyes: PERRLA, conjunctiva and sclera normal Oropharynx: Lips, tongue, and oral mucosa normal. There is no thrush or oral ulcers. Lungs:breath sounds clear to auscultation bilaterally, no crackles, rhonchi, or wheezes Heart: regular rate and rhythm, no murmurs or gallops. Abdomen: round, soft, nontender, w/o HSM or masses ?Shunt palpable in RUQ Rectal exam: Deferred. Extremities: no cyanosis or edema Skin: no jaundice, no spider angiomas, no palmar erythema Neuro:alert, oriented x 3, pleasant and in no acute distress RECENT LABS CBC: WBC (k/uL) Date Value 09/03/2022 6.24 08/24/2022 6.84 Hematocrit (%) Date Value 09/03/2022 41.6 MCV (fL) Date Value 09/03/2022 87.9 Platelet Count (k/uL) Date Value 09/03/2022 312 Lymph% (%) Date Value 09/03/2022 26.6 Comprehensive Metabolic Panel: Glucose (mg/dL) Date Value 09/03/2022 90 BUN (mg/dL) Date Value 09/03/2022 12 Creatinine (mg/dL) Date Value 09/03/2022 0.63 (L) Sodium (mmol/L) Date Value 09/03/2022 129 (L) Potassium (mmol/L) Date Value 09/03/2022 4.7 Chloride (mmol/L) Date Value 09/03/2022 95 (L) CO2 (mmol/L) Date Value 09/03/2022 24 Protein, Total (g/dL) Date Value 04/19/2022 6.6 Albumin (g/dL) Date Value 04/19/2022 3.4 (L) Calcium, Total (mg/dL) Date Value 09/03/2022 9.1 Alkaline Phosphatase (U/L) Date Value 04/19/2022 65 Bilirubin, Total (mg/dL) Date Value 04/19/2022 0.3 AST (U/L) Date Value 04/19/2022 35 ALT (U/L) Date Value 04/19/2022 34 IMPRESSION Mr. Fuentes is a 56 year old year old male with spina bifida here with sister who presents with chronic constipation and repeated SBO's. Has not had to have surgery for these. Has spina bifida & uses a wheelchair. Sister does daily bowel care: BM's qd after glycerin supp (denies Dulcolax)& tap water enema, sometimes has to walk to bring on a BM. He has no pain today. Sister wants to know how much fiber he should have in his diet & wants to know if blocked shunt brings on SBO's. Had 2 CT's of the abdomen <1 mo ago at [facility]. Recent xray with persistent large bowel ileus. PLAN Continue current bowel regimen. Don't use any supplemental fiber, Try to avoid more than one high-fiber food with any meal. Increase Linzess to 290 mcg/d Add Motegrity 2 mg once daily. Enemas every day- every other day Liz Villarreal PA-C GI Motility & pelvic floor clinic Neurogastroenterology section Department of Gastroenterology Plan is to follow up as needed Nayely Nazario M.D Mail List Processor, GI motility & pelvic floor clinic Department of Gastroenterology, nutrition & hepatology [facility] [place] [facility] I spent a total of 60 minutes on the date of the service which included preparing to see the patient, [id number] patient care, completing clinical documentation, obtaining and/or reviewing separately obtained history, performing a medically appropriate examination, counseling and educating the pat ient/family/caregiver, ordering medications, tests, or procedures, communicating with other HCPs (not separately reported), independently interpreting results (not separately reported), communicatingresults to the patient/family/caregiver, and care coordination (not separately reported). documented in this encounterGreene Memorial Hospital11-16-2022 Miscellaneous Notes* Telephone Encounter - Dalia Floyd RN - 09/29/2022 2:15 PM EST NANETTE Jimenez @ [facility] calling to let PCP know PT evaluated patient today and patient does not need physical therapy services at this time. He is at his baseline prior to hospitalization. Dalia Floyd RN documented in this encounterGreene Memorial Hospital11-04-2022 NoteHNO ID: [id number] Author: Lyndon Estes MD Service: ? Author Type: Physician Type: Progress Notes Filed: 09/17/2022 3:30 PM Note Text: Addendum: Patient requires new wheelchair. He uses it daily in order to move about the home and do his adls due to his spina bifida and hydrocephalus.[facility]11-02-2022 Miscellaneous Notes* Telephone Encounter - Kaylee Greenberg LPN - 09/15/2022 11:40 AM EDT Form on Dr Estes desk for review. * Telephone Encounter - Rich Guajardo LPN - 09/15/2022 10:16 AM EDT Patient has been identified by name and date of : Yes Type of form: Medical Necessity (received previous CMN but was incomplete) Form received via: Fax When form is completed, fax form to fax number provided. Form has been forwarded to: Nurse Rich Guajardo LPN documented in this encounterGreene Memorial Hospital10-28-2022 Miscellaneous Notes* Telephone Encounter - Millie Conner APRN.CNP - 09/10/2022 9:16 AM EDT Called and spoke to patient's sister. Reports she took patient to ED last night [facility]. Recommended follow up with Dr. Nazario at [facility] for slow transit constipation and motility after admission. Sister verbalized understanding and agreed to plan. Millie Conner APRN.KAREN * Telephone Encounter - Laura Perez Sec - 09/09/2022 1:20 PM EDT Sister (Darrion Bansal) called requesting to speak to Millie or her RN JIE. Says Jian has been having difficulties moving his bowels. Advised to give 2 kiwi's which she's been out of for a couple of days. He takes Linzess once daily. However, yesterday and today, she gave both a depository and enema with a manual stem (??) trying to get the stool out. Says before she can prepare the enema kit, the stool goes back up. Doesn't knowwhat to do. Jian is resting now, but she will try again when he wakes up. Any suggestions?? Doesn't want him to overuse laxatives. Please call; desperate because he's had no BM's for awhile. documented in this encounterGreene Memorial Hospital10-24-2022 Miscellaneous Notes* Telephone Encounter - Kassy Kyle Ma - 09/06/2022 11:38 AM EDT VO given to kate at [facility] * Telephone Encounter - Yvette Mir APRN.KAREN - 09/06/2022 10:16 AM EDT Agree. Yvette Mir APRN.KAREN * Telephone Encounter - Mercy Noonan RN - 09/06/2022 10:03 AM EDT Kate from [facility] calls to report that physical therapy did not visit the patient on 09/03/2022 due to they needed insurance authorization. Kate asking for orders to omit that visit. Kate also asking for orders for physical therapy to do a 1 time visit for re-evaluation of physical therapy. Please review and advise, Mercy Noonan RN documented in this encounterGreene Memorial Hospital10-12-2022 Miscellaneous Notes* Telephone Encounter - Sarahy Monet - 08/25/2022 1:28 PM EDT Spoke with Darrion, patients sister and informed of results. She verbalized understanding. Sarahy Monet * Telephone Encounter - Lyndon Estes MD - 08/25/2022 12:49 PM EDT Platelets are up,likely due to recent infection. Sodium is better but still low. Recheck labs in one week documented in this encounterGreene Memorial Hospital10-11-2022 History of Present illness Narrative* Lyndon Estes MD - 08/24/2022 2:05 PM EDT Patient presents with: Hospital Follow Up HPI: Patient presents today for office visit for hospital follow up/TCM. Dx with UTI. Abx completed. Has finished the bactrim. Discussed infections and catheters. He does have a chronic indwelling. They had really pushed fluids prior to admit so they are wondering if that is what dropped his sodium. Feels great now. Urine is clear and passing well. No fever or chills. Bowels are doing well. No abd pain. Discussed whether or not to recheck urine, particularly since he has a cath that is likely to show bacteria and the possibility we could create resistance. Home health is coming in. Still doing physical therapy as well. Appetite is doing well. SeeTCM noted. Discharged from [facility] on 08/14: Copied from [facility] [employer]: This 56 year-old white male seen in the emergency room at [facility] with complaints of fever and chills and altered mental status. Patient has a chronic indwelling Bowman, labs obtained in the emergency room revealed an elevated white blood cell count 11.4, patient's sodium was lowat 119. Chest x- ray showed no acute abnormal finding, patient's urinalysis showed red blood cells, white blood cells, and bacteria although the patient did have a chronic indwelling Bowman catheter. Patient was lethargic. Patient was felt to have an acute urinary tract infection, he was admitted to PCU and place on IV antibiotics, patient's mentation improved, he was given IV normal saline and his sodium improved. Patient's urine resulted in positive for E.Coli which was ESBL, patient's antibiotics were changed to meropenem and he was seen in consultation by infectious disease who made recommendations for outpatient oral antibiotic at the time of discharge (Bactrim DS) On 08/14/22, patient was seen and examined: On examination he appeared in good health and spirits. Vital signs as documented. Skin warm and dry and without over rashes. Neck without JVD, neck was supple, trachea midline, thyroid was normal. Lungs clear bilaterally, normal air movement was noted. Heart exam notable for regular rhythm, normal sounds and absence of murmurs, rubs or gallops. Abdomen unremarkable and without evidence of organomegaly, masses or abdominal aortic enlargement. Bowel sounds are present, abdomen is not distended. Extremities nonedematous, no cyanosis was noted, no clubbing was noted. There is noted to be generalized wasting of the patients extremities in keeping with chronic physical disability. Neuro: Cranial nerves II through XII are grossly intact, no focal motor deficits were noted, sensation to light touch and pinprick intact, motor exam 5/5 throughout. Psych:Patient is alert and oriented x3, he does not appear anxious or depressed, he does not appear agitat ed. Patient was felt to be stable for discharge on 08/14/22, I had lengthy conversations with the patient's sister during my examinations of the patient during his hospital stay. Patient lives with his family. Per sister, pt does not have any follow up's with ID and does have some questions regarding the type of bacterial growth found on urine cx. She plans to discuss with PCP at upcoming appt. MEDICATIONS: Current Outpatient Medications Medication Sig baclofen (LIORESAL) 5 mg tablet Take 1 tablet by mouth three times daily. linaclotide (LINZESS) 145 mcg capsule Take 1 capsule by mouth DAILY (6 AM). bisacodyl (DULCOLAX) 10 mg supp Bisacodyl Active 10 MG RC NEEDED 0 January 24, 2022 10:15am OTC No current facility-administered medications for this visit. ALLERGIES: ALLERGIES Allergen Reactions Contrast Dye Anaphylaxis Fd And C Blue No.1 Iodinated Contrast * Anaphylaxis Macrodantin [Nitrof* GI Upset Nitrofurantoin GI Upset Phenytoin PAST MEDICAL HISTORY Diagnosis Date Bowel dysfunction Constipation Hydrocephalus (HCC) Inguinal hernia left - imaging at [facility] Sleep apnea Spina bifida (HCC) Urinary retention PAST SURGICAL HISTORY Procedure Laterality Date CRTJ SHUNT [id number] TERMINUS EGD W/O [facility] SPEC VARICIES INJ 08/06/2021 PAST SURGICAL HISTORY OF repair of hamstring FAMILY HISTORY Problem Relation Age of Onset Allergies Father Stroke Other Arthritis Other Cancer Brother lung cancer Asthma Sister other (head injury) Sister Social History Tobacco Use Smoking status: Never Smokeless tobacco: Never Substance Use Topics Alcohol use: No Drug use: No Reviewed current medications, allergies, past medical history, surgical history, family history andsocial history today. REVIEW OF SYSTEMS All other reviewed and negative other than HPI. VITALS: BP 126/80 Pulse 94 Ht 157.5 cm (5' 2 ) Wt 54 kg (119 lb) SpO2 97% BMI 21.77 kg/m Last 4 Encounter Wt Readings: Date: Wt: 07/30/2022 54 kg (119 lb) 06/11/2022 55.8 kg (123 lb) 04/13/2022 55.9 kg (123 lb 3.8 oz) 02/02/2022 0 kg () PHYSICAL EXAMINATION: General appearance: Well appearing, alert, in no acute distress, well-hydrated, well nourished. Skin: Skin color, texture, turgor normal, no suspicious rashes or lesions Head: Normocephalic, no masses, lesions, tenderness or abnormalities Neck: Supple, no adenopathy; thyroid symmetric, normal size, no bruits Lungs: Lungs clear to auscultation. No wheezing, rhonchi, rales Heart: RRR without murmur, gallop, or rubs. No ectopy Abdomen: Normal abdominal exam, Abdomen soft, non-tender. Bowel sounds normal. No masses, organomegaly Extremities: No deformities, edema, skin discoloration, clubbing or cyanosis. Good capillary refill. ASSESSMENT/PLAN: 1. Urinary tract infection without hematuria, site unspecified - ICD9: 599.0, ICD10: N39.0 (primarydiagnosis) - now resolved. Call if any issues. - CBC + DIFF 2. Hyponatremia - ICD9: 276.1, ICD10: E87.1 - folllow labs. - BASIC METABOLIC PNL 3. Urinary catheter in place - ICD9: V45.89, ICD10: Z96.0 - continue care. 4. Neurogenic bladder - ICD9: 596.54, ICD10: N31.9 5. Spina bifida with hydrocephalus, unspecified spinal region (HCC) - ICD9: 741.00, ICD10: Q05.4 Lyndon Estes MD Keep follow up appt and prn documented in this encounterGreene Memorial Hospital10-06-2022 Miscellaneous Notes* Telephone Encounter - Kaylee Greenberg LPN - 08/19/2022 3:10 PM EDT Faxed as requested. * Telephone Encounter - Lyndon Estes MD - 08/19/2022 2:30 PM EDT Printed. * Telephone Encounter - Ave Mullins LPN - 08/19/2022 1:28 PM EDT Janie from [facility] Home Health OT returned call and said family wants order for standard manual wheel chair with elevating leg rests faxed to [employer] fax number is [phone]. Patient height is 63 inches and weight is 119 pounds. * Telephone Encounter - Kyleigh Hernandez LPN - 08/18/2022 12:00 PM EDT Contacted Janie from , need to know where to send order. Janie states she will find out and call back. * Telephone Encounter - Lyndon Estes MD - 08/17/2022 3:40 PM EDT written * Telephone Encounter - Mercy Noonan RN - 08/17/2022 1:47 PM EDT Janie OT from [facility] calls to report that she did only a one time visit. Janie states that patient is pretty much wheel chair bound. Patient wheel chair is old and torn withno cushion. Janie asking if provider can write a prescription for a new wheel chair and cushion. Please review and advise, Mercy Noonan RN documented in this encounterGreene Memorial Hospital10-05-2022 Miscellaneous Notes* Telephone Encounter - Juan Daniel Finn RN - 08/18/2022 4:09 PM EDT Barbara- PT- [facility], reporting POC: will see patient 2 x's week for 2 weeks, for lower extremity strengthening, ROM, transfers, and gait training. documented in this encounterGreene Memorial Hospital10-04-2022 History of Present illness Narrative* Rich Guajardo BEAMER OPERATOR - 08/17/2022 10:14 AM EDT TRANSITION CARE MANAGEMENT (TCM) INITIAL CONTACT [employer] Outreach Provider Action/FYI: Copied from [facility] [employer]: This 56 year-old white male seen in the emergency room at [facility] with complaints of fever and chills and altered mental status. Patient has a chronic indwelling Bowman, labs obtained in the emergency room revealed an elevated white blood cell count 11.4, patient's sodium was lowat 119. Chest x- ray showed no acute abnormal finding, patient's urinalysis showed red blood cells, white blood cells, and bacteria although the patient did have a chronic indwelling Bowman catheter. Patient was lethargic. Patient was felt to have an acute urinary tract infection, he was admitted to PCU and place on IV antibiotics, patient's mentation improved, he was given IV normal saline and his sodium improved. Patient's urine resulted in positive for E.Coli which was ESBL, patient's antibiotics were changed to meropenem and he was seen in consultation by infectious disease who made recommendations for outpatient oral antibiotic at the time of discharge (Bactrim DS) On 08/14/22, patient was seen and examined: On examination he appeared in good health and spirits. Vital signs as documented. Skin warm and dry and without over rashes. Neck without JVD, neck was supple, trachea midline, thyroid was normal. Lungs clear bilaterally, normal air movement was noted. Heart exam notable for regular rhythm, normal sounds and absence of murmurs, rubs or gallops. Abdomen unremarkable and without evidence of organomegaly, masses or abdominal aortic enlargement. Bowel sounds are present, abdomen is not distended. Extremities nonedematous, no cyanosis was noted, no clubbing was noted. There is noted to be generalized wasting of the patients extremities in keeping with chronic physical disability. Neuro: Cranial nerves II through XII are grossly intact, no focal motor deficits were noted, sensation to light touch and pinprick intact, motor exam 5/5 throughout. Psych:Patient is alert and oriented x3, he does not appear anxious or depressed, he does not appear agitat ed. Patient was felt to be stable for discharge on 08/14/22, I had lengthy conversations with the patient's sister during my examinations of the patient during his hospital stay. Patient lives with his family. Per sister, pt does not have any follow up's with ID and does have some questions regarding the type of bacterial growth found on urine cx. She plans to discuss with PCP at upcoming appt. Initial contact with patient post discharge, spoke to caregiver, sister Lesli. Patient identified by name and . TRANSITION CARE MANAGEMENT INITIAL OUTREACH DOCUMENTATION: Date of Outreach: 08/17/2022 Outreach Attempt 1: Contact Made Date of Discharge 08/14/2022 Some recent data might be hidden SUMMARY: -Pt discharged from [facility] on 08/14/22. -Admitted for: UTI, hyponatremia Do you have a hospital follow up appointment with your PCP? Appointment on 08/[address] Estes. Yes. Remind patient of appointment date, time, and location. If not within 14 calendar days of discharge - please reschedule accordingly. MEDICATIONS: Many patients have questions or concerns about their medications once they are home. Were you prescribed any new medications? Yes, Bactrim DS 800-160mg 1 tablet twice daily x 7days. Were you told to hold any medications? No Were any of your medications discontinued? No Do you have any questions about getting or taking your medications? No Your discharge instructions/After visit Summary (AVS) are important in guiding you through the recovery process. Is there anything I might help you understand? No Do you have all the necessary equipment and supplies at home? Yes Medical records from recent hospitalization: Requested from outside hospital documented in this encounterGreene Memorial Hospital09-29-2022 Miscellaneous Notes* Telephone Encounter - Kassy Kyle Ma - 08/12/2022 12:11 PM EDT Patient currently admitted and being treated for UTI * Telephone Encounter - Lyndon Estes MD - 08/12/2022 12:05 PM EDT I think he is still in the hospital for ? Uti. Can we check. * Telephone Encounter - Morenita Neil Ma - 08/12/2022 12:00 PM EDT See outside external lab. View External Lab - Miscellaneous Lab [ID [id number]] Morenita Neil Ma documented in this encounterGreene Memorial Hospital09-28-2022 Miscellaneous Notes* Telephone Encounter - Daniela Nelson RN - 08/11/2022 9:13 AM EDT Serina SW with [facility] HH calls to let provider know that she planned to see patient in the home today to help complete advance directives--POA. Serina reports that patient is currently hospitalized at [facility] PCU and SW will assist patient with this while he is there. Serina reports she shouldn't need anyfurther SW visits in the home but will call back if that changes. Daniela Nelson RN documented in this encounterGreene Memorial Hospital09-27-2022 Miscellaneous Notes* Telephone Encounter - Kassy Kyle Ma - 08/10/2022 1:16 PM EDT VO given to Moriah from [facility] * Telephone Encounter - Juan Daniel Wolff PA-C - 08/10/2022 12:51 PM EDT Telephone on 08/10/22 URINALYSIS, REFLEX MICROSCOPIC URINE CULTURE Abnormal urine color (primary encounter diagnosis) Urinary catheter in place Brayan Lawson PA-C * Telephone Encounter - Ave Mullins LPN - 08/10/2022 10:22 AM EDT Moriah from [facility] Home Health calling patient caregiver has called her and said his urine color is much darker, he has bowman catheter chronically. She plans to go to home later this morning. She is askingfor orders for urine sample. Pending orders needs diagnosis. Please advise documented in this encounterGreene Memorial Hospital09-23-2022 Miscellaneous Notes* Telephone Encounter - Jane Wiggins RN - 08/06/2022 3:42 PM EDT Nhi nurse from [facility] called in and reports she was getting notifications that the Pt had been in the hospital from 07/20-07/23. I told her I didn't see in our system that the Pt had been. She saidshe couldn't pull any visits up either. documented in this encounterGreene Memorial Hospital09-22-2022 Miscellaneous Notes* Telephone Encounter - Morenita Neil Ma - 08/05/2022 11:29 AM EDT Returned call to Phyllis, notified her of response from PCP, verbalized understanding. Morenita Neil Ma * Telephone Encounter - Lyndon Estes MD - 08/05/2022 10:24 AM EDT Ok to do * Telephone Encounter - Mercy Noonan RN - 08/05/2022 10:00 AM EDT Serina BAUTISTA from [facility] calls and asking for a verbal order for continued Social Work for 1 time for 2 weeks. Please give Serina a call back at with verbal order if agreeable. Mercy Noonan RN documented in this encounterGreene Memorial Hospital09-20-2022 Miscellaneous Notes* Telephone Encounter - Melodie Kim RN - 08/03/2022 11:58 AM EDT Shantelle, Nurse, notified of order. Melodie Kim RN * Telephone Encounter - Yvette Mir APRN.CNP - 08/03/2022 11:48 AM EDT Okay to change catheter. Yvette Mir APRN.[employer] * Telephone Encounter - Melodie Kim RN - 08/03/2022 10:19 AM EDT Shantelle, a nurse with [facility] calling to state patient's daughter reports patient's catheter is leaking. Shantelle is planning to visit patient at this afternoon. She is asking for an order to change the catheter today, if provider agreeable- It was to be changed on 08/11. Please call Shantelle with order at [phone]. Thank you. documented in this encounterGreene Memorial Hospital09-19-2022 Miscellaneous Notes* Telephone Encounter - Lyndon Estes MD - 08/02/2022 3:15 PM EDT noted * Telephone Encounter - Juan Daniel Finn RN - 08/02/2022 2:43 PM EDT Janie- [facility] OT reporting POC- there was a delay of care waiting for insurance authorization. Plan to see patient 2 x's week for 2 weeks, then 1 x week for 1 week, for home exercise to improve transfers, and education for caregivers. Does not need a call back as long as pcp agrees. documented in this encounterGreene Memorial Hospital09-19-2022 Miscellaneous Notes* Telephone Encounter - aKylee Greenberg LPN - 08/02/2022 11:27 AM EDT As requested this was printed in letters and sent to patient via mail. This was requested by [facility] office the day of visit. * Telephone Encounter - Lyndon Estes MD - 08/02/2022 8:41 AM EDT His labs are stable. Platelets are mildly up. Potassium is mildly up. Sodium is low but stable. Recheck labs in two weeks documented in this encounterGreene Memorial Hospital09-16-2022 History of Present illness Narrative* Lyndon Estes MD - 07/30/2022 3:39 PM EDT Patient presents with: Hospital F/U HPI: Patient presents today for office visit for hospital follow up. Bowel obstruction and UTI. Was in [facility] Admitted 07/21-07/25 DX:admitted with SBO, cystitis. Is on cefdinir. Cultlure was positive for e coli. He does see urology. Was seen by Dr Manriquez, surgery as well. Also has hyponatremia. No fever or chills. No stomach pain. No nausea or vomiting. Doing physical therapy and home health. Catheter is draining well. No bm yet today but has been better for several days. MEDICATIONS: Current Outpatient Medications Medication Sig cefdinir (OMNICEF) 300 mg capsule Take 300 mg by mouth twice daily. nystatin (MYCOSTATIN) powder Apply 1 application to affected area four times daily for 14 days. baclofen (LIORESAL) 5 mg tablet Take 1 tablet by mouth three times daily. linaclotide (LINZESS) 145 mcg capsule Take 1 capsule by mouth DAILY (6 AM). bisacodyl (DULCOLAX) 10 mg supp Bisacodyl Active 10 MG RC NEEDED 0 January 24, 2022 10:15am OTC No current facility-administered medications for this visit. ALLERGIES: ALLERGIES Allergen Reactions Contrast Dye Anaphylaxis Fd And C Blue No.1 Iodinated Contrast * Anaphylaxis Macrodantin [Nitrof* GI Upset Nitrofurantoin GI Upset Phenytoin PAST MEDICAL HISTORY Diagnosis Date Bowel dysfunction Constipation Hydrocephalus (HCC) Inguinal hernia left - imaging at [place] Sleep apnea Spina bifida (HCC) Urinary retention PAST SURGICAL HISTORY Procedure Laterality Date CRTJ SHUNT [id number] TERMINUS EGD W/O [facility] SPEC VARICIES INJ 08/06/2021 PAST SURGICAL HISTORY OF repair of hamstring FAMILY HISTORY Problem Relation Age of Onset Allergies Father Stroke Other Arthritis Other Cancer Brother lung cancer Asthma Sister other (head injury) Sister Social History Tobacco Use Smoking status: Never Smokeless tobacco: Never Substance Use Topics Alcohol use: No Drug use: No Reviewed current medications, allergies, past medical history, surgical history, family history andsocial history today. REVIEW OF SYSTEMS Requests nystatin powder No chest pain or shortness of breath. All other reviewed and negative other than HPI. HEALTH MAINTENANCE: Reviewed health maintenance issues today and recommended the following in detail. COLORECTAL CANCER SCREENING-per gi. Had colonoscopy in 2020 INFLUENZA(1) due on 07/15/2022 VITALS: BP 130/86 Pulse 97 Ht 157.5 cm (5' 2 ) Wt 54 kg (119 lb) SpO2 97% BMI 21.77 kg/m Last 4 Encounter Wt Readings: Date: Wt: 07/30/2022 54 kg (119 lb) 06/11/2022 55.8 kg (123 lb) 04/13/2022 55.9 kg (123 lb 3.8 oz) 02/02/2022 0 kg () PHYSICAL EXAMINATION: General appearance: Wheelchair. Appears healthy. Urine is draining clear in bowman. Skin: Skin color, texture, turgor normal, no suspicious rashes or lesions Lungs: Lungs clear to auscultation. No wheezing, rhonchi, rales Heart: RRR without murmur, gallop, or rubs. No ectopy Abdomen: Normal abdominal exam, Abdomen soft, non-tender. Bowel sounds normal. No masses, organomegaly Extremities: No deformities, edema, skin discoloration, clubbing or cyanosis. Good capillary refill. Musculoskeletal: No joint swelling, deformity, or tenderness Peripheral pulses: Normal Neuro: no change. ASSESSMENT/PLAN: 1. SBO (small bowel obstruction) (HCC) - ICD9: 560.9, ICD10: K56.609 (primary diagnosis) - is improving. Follow with gi. Continue regimen. 2. Need for influenza vaccination - ICD9: V04.81, ICD10: Z23 - INFLUENZA VACCINE QUADRIVALENT 6 MO - 64 YRS IM 3. Recurrent UTI (urinary tract infection) - ICD9: 599.0, ICD10: N39.0 - see urology - CBC + DIFF 4. Congenital hydrocephalus ([facility]) - ICD9: 742.3, ICD10: Q03.9 - stable. 5. Spina bifida with hydrocephalus, unspecified spinal region (HCC) - ICD9: 741.00, ICD10: Q05.4 - stable. 6. Neurogenic bladder - ICD9: 596.54, ICD10: N31.9 7. Hyponatremia - ICD9: 276.1, ICD10: E87.1 - BASIC METABOLIC PNL Lyndon Estes RTO in six months and prn. documented in this encounterGreene Memorial Hospital09-16-2022 Miscellaneous Notes* Telephone Encounter - Lyndon Estes MD - 07/30/2022 3:22 PM EDT ok * Telephone Encounter - Ave Mullins LPN - 07/30/2022 3:15 PM EDT Barbara from [facility] Home Health calling with PT plan of care, 2 visits weekly for 3 weeks working on lower extremities range of motion, tone management, transfer and gait training, core strength. documented in this encounterGreene Memorial Hospital09-13-2022 Miscellaneous Notes* Telephone Encounter - Mercy Noonan RN - 07/27/2022 4:36 PM EDT Christiano from [facility] calls and states that she did receive orders from provider via detailed message. Patient needs nystatin powder prescription to be sent to [facility]. Please review and advise, Mercy Noonan RN documented in this encounterGreene Memorial Hospital09-13-2022 Miscellaneous Notes* Telephone Encounter - Diane Franco Ma - 07/27/2022 3:27 PM EDT Detailed message left on Cori's identified confidential VM. Diane Franco Ma * Telephone Encounter - Lyndon Estes MD - 07/27/2022 3:17 PM EDT Ok for all * Telephone Encounter - Jane Wiggins RN - 07/27/2022 2:45 PM EDT Janay SN with [facility] called in and reports they will see the Pt once a week for three weeks. She is asking for an order for Social Work to help with community resources and Advanced Directives. She reports the Pt has a stage 1 wound to his coccyx and is asking for orders for that. She also reports he has excoriation to his groin and R armpit and is asking for Nystatin to be ordered to that. Pleasecall and advise. documented in this encounterGreene Memorial Hospital09-12-2022 Miscellaneous Notes* Telephone Encounter - Rich Guajardo LPN - 07/26/2022 5:44 PM EDT TC to Marisabel, left detailed message on secure identified voicemail. Marisabel only to return call to office /c any questions. Rich Guajardo LPN * Telephone Encounter - Lyndon Estes MD - 07/26/2022 5:09 PM EDT ok * Telephone Encounter - Dalia Floyd RN - 07/26/2022 4:45 PM EDT Marisabel nurse @ [facility] calling to let PCP know patient was discharged from [facility] on 07/25 post hospitalization for ileus, SBO, gastroparesis, UTI. He has home health orders for nursing, PT/OT. Agree and willing to follow? Please call with verbal okay. # [phone]. Dalia Floyd RN documented in this encounterGreene Memorial Hospital09-02-2022 Instructions* Patient Instructions* Julita Sofia DO - 07/16/2022 11:26 AM EDT Today we discuss: -baclofen 5 mg every 8 hours is working well for spasticity, but diet had to be changed due to three small bowel obstructions. -you do not show symptoms of increased intracranial pressure such that neurosurgery visit is not indicated now. -One year of baclofen prescribed today, for 3 month supply, with three refills. -A consult placed to physical medicine and rehab, which may be helpful with therapy, with recommendations for therapists, and other options for treating the spasticity. documented in this encounterGreene Memorial Hospital09-02-2022 History of Present illness Narrative* Julita Sofia DO - 07/16/2022 11:00 AM EDT Images from the original note were not included. [facility] Follow up/ Established patient visit Individuals who were included in, or assisted with the encounter were: Jian Sofia DO Chief Complaint/Issues: Jian Fuentes is a 56 year old male seen in the [facility] for: Spasticity or b/l UE and LE, neurogenic bladder, bowel dysfunction. Multiple surgeries through the years to his legs, wheelchair bound with catheter Diagnosis/Issues: Relevant Medical Issues: 1. Hydrocephalus s/p SUSPECT ARTIST shunt 2. Spina bifida 3. Spastic paraparesis with neurogenic bladder, SBO in 04/2022 and right head tilt Current Treatment and Relevant Treatment History: 1. baclofen 07/08/2022 2. referred to spasticity clinic for botox evaluation Follows with urology and GI Imaging/Studies/Labs: No WORKING SECOND HAND imaging Most Recent Neurological Assessment and Plan: Last Filed Values None HPI/Interval History: Today, patient here with his sister Darrion. Since last visit in 09/19/2020 he has had three SBOs. He has had few to no spasticity events since starting baclofen. He has had a dietary change, with no meats that are hard to chew, no metamucil. He has started eating Kiwi. He still has a urinary catheter, follows with urology. In the past, his symptoms of intracranial hypertension when his shunt malfunctioned, his symptoms included nausea, headache seizure. He has not had any of these symptoms since last visit. His isvery -last shunt check by neurosurgery is 2014 according to last office visit note. Referred to [facility] in September 2020. -consider referral to [facility] PHYSICAL EXAM: General appearance: Awake and alert. No distress. Cooperative with exam. Skin: No rash or jaundice. HEENT: Atraumatic. Anicteric. Lungs: Clear to auscultation. Heart: RRR. No murmur heard. Abdomen: Soft, non tender. Extremities: No edema. Radial and DP pulses strong bilaterally. Musculoskeletal: No obvious joint swelling. Neurological exam: Mental Status: Alert, oriented x3 Cranial Nerves: CNII: Visual zelaya full to confrontation CNIII, IV, : Pupils equal, round and reactive to light, baseline dysconjugate gaze with OD exotropia CN V: Facial sensation intact bilaterally to fine touch CN VII: Facial muscles symmetric and strong CN VIII: Hears finger rub well bilaterally CN IX: Deferred CN X: Palate elevates symmetrically CN XI: Full strength shoulder shrug bilaterally CN XII: Tongue protrusion full and midline Motor Exam: Muscle Tone: increased bilateral upper and lower extremitie spasticity in all four limbs Strength: 4/5 bilateral upper extremities proximal>distal, 4/5 R hip flexion, 3/5 L hip flexion,4-/5 bilateral knee flexion/extension, bilateral ankles contracted Reflexes: equal and reactive, 2+ throughout Sensation: Intact to light touch and pin prick all 4 extremities. Coordination: Finger-to- nose-finger limited by spasticity but no clear dysmetria Gait: Patient's unable to walk, he is in a wheelchair Assessment & Plan 07/16/2022 - General Neurology, Julita Sofia, DO ASSESSMENT Patient is 56 yo male with a history of spina bifida with hydrocephalus s/p SUSPECT ARTIST shunt placed at who presents for followup visit. He has spasticity in all limbs that has improved with baclofen 5mg TID, however, this has led to constipation and three SBOs since starting baclofen. They have modified his diet to prevent constipation, which has helped. He has an indwelling catheter as well. Spasticity in neck muscles with rightward head tilt. His last shunt evaluation by Neurosurgery was 2014, however, no symptoms of headache, nausea/vomiting, or seizures (symptoms demonstrated previously when shunt malfunctioned) so may be ok to not see neurosurgery at this time. Driving up to main campus is very difficult, as his sister Darrion, his caregiver, has some physical limitations of her own. He may benefit from a different treatment for the spasticity (botox) that would not cause the constipation and SBOs, so I've referred to Physical med and Rehab for full evaluation. They are interested in an in home therapist also that maybe can be recommended from the [facility] group. baclofen refilled today. Return in one year. PLAN -baclofen 5 mg every 8 hours is working well for spasticity, but diet had to be changed due to three small bowel obstructions. -you do not show symptoms of increased intracranial pressure such that neurosurgery visit is not indicated now. -One year of baclofen prescribed today, for 3 month supply, with three refills. -A consult placed to physical medicine and rehab, which may be helpful with therapy, with recommendations for therapists, and other options for treating the spasticity. No diagnosis found. No follow-ups on file. Data Review Objective Current Outpatient Medications Medication Sig baclofen (LIORESAL) 5 mg tablet Take 1 tablet by mouth three times daily. linaclotide (LINZESS) 145 mcg capsule Take 1 capsule by mouth DAILY (6 AM). bisacodyl (DULCOLAX) 10 mg supp Bisacodyl Active 10 MG RC NEEDED 0 January 24, 2022 10:15am OTC psyllium husk (METAMUCIL ORAL) Take by mouth daily at bedtime. OTC as needed (Patient not taking: Reported on 06/11/2022 ) No current facility-administered medications for this visit. ACTIVE PROBLEM LIST Congenital Hydrocephalus (Hcc) Myelodysplasia Deformity of Ankle and Foot, Acquired Weakness Abnormality of Gait Spina bifida (HCC) Neurogenic Bladder Benign Prostatic Hyperplasia With Urinary Retention Right Inguinal Hernia Hydrocephalus (Hcc) Urinary Retention Sbo (Small Bowel Obstruction) ([facility]) PAST MEDICAL HISTORY Diagnosis Date Bowel dysfunction Constipation Hydrocephalus (HCC) Inguinal hernia left - imaging at [place] Sleep apnea Spina bifida (HCC) Urinary retention PAST SURGICAL HISTORY Procedure Laterality Date CRTJ SHUNT [id number] TERMINUS PAST SURGICAL HISTORY OF repair of hamstring Social History Tobacco Use Smoking status: Never Smokeless tobacco: Never Substance Use Topics Alcohol use: No Drug use: No FAMILY HISTORY Problem Relation Age of Onset Allergies Father Stroke Other Arthritis Other Cancer Brother lung cancer Asthma Sister other (head injury) Sister Review of Systems Musculoskeletal: Positive for muscle weakness. Gastrointestinal: Positive for constipation. Genitourinary: Positive for indwelling catheter. Lab and Test Review: Results for orders placed or performed in visit on 06/04/22 PT ED PATIENT INFORMATION Result Value Ref Range [place] Provider DALILA your patient JIAN FUENTES has been assigned their Irene program. The date to complete this order is 07-19-2022 The Irene program is: PATIENT SAFETY AND FALL PREVENTION The patient access code to view the Irene program is: [id number] To view the Irene program go to: [email or web address] Data/Labs: Subjective Patient-Entered Data: 07/11/22 - GENERAL NEUROLOGY SCORES No flowsheet data found. Depression Screening 09/06/2016 08/22/2018 PHQ-2 Score 2 0 No flowsheet data found. No flowsheet data found. No flowsheet data found. I spent a total of 35 minutes on the date of the service which included preparing to see the patient, [id number] patient care, completing clinical documentation, obtaining and/or reviewing separately obtained history, performing a medically appropriate examination, counseling and educating the pat ient/family/caregiver, ordering medications, tests, or procedures, independently interpreting results (not separately reported), and care coordination (not separately reported). Julita Sofia DO documented in this encounterGreene [facility] Hospital07-29-2022 Instructions* Patient Instructions* Millie Conner APRN.CNP - 06/11/2022 4:18 PM EDT PLAN - Trial increase Linzess 145mcg daily. - 2 kiwi fruit/day - Follow up 6 months. documented in this encounterGreene Memorial Hospital07-29-2022 History of Present illness Narrative* Millie Conner APRN.CNP - 06/11/2022 4:07 PM EDT Jian Fuentes, 56 year old male here for follow-up for chronic constipation . LAST SEEN: 02/06/21 chronic constipation Plan -Overdue for screening colonoscopy MAC -Miralax titrate up to three times daily -Fiber supplement (metamucil) -Start Linzess 72 mcg daily -Anorectal manometry -2 kiwi fruit/day for constipation -F/U after testing. Interval events: Admitted 04/14-04/18 with suspected SBO- management non-operatively with NGT. Linzess has really been helping. Has mineral oil on standby as needed if unable to have a BM. Stopped taking fiber. Trying to avoid taking multiple laxatives. Has been having a small BM daily. No nausea or vomiting. No interested in seeing colorectal surgery at this time. GI EVALUATION 03/27/21: Colonoscopy: - Tortuous colon with redundancy and atonic. - No specimens collected. 02/18/21: Colonoscopy: - Preparation of the colon was unsatisfactory. - Stool in the rectum, in the sigmoid colon and in the descending colon. - No specimens collected. ALLERGIES Allergen Reactions Contrast Dye Anaphylaxis Fd And C Blue No.1 Iodinated Contrast * Anaphylaxis Macrodantin [Nitrof* GI Upset Nitrofurantoin GI Upset Phenytoin Current Outpatient Medications Medication Sig Dispense Refill linaclotide (LINZESS) 145 mcg capsule Take 1 capsule by mouth DAILY (6 AM). 90 capsule 1 bisacodyl (DULCOLAX) 10 mg supp Bisacodyl Active 10 MG RC NEEDED 0 January 24, 2022 10:15am OTC baclofen (LIORESAL) 5 mg tablet Take 1 tablet by mouth three times daily. 90 Each 2 psyllium husk (METAMUCIL ORAL) Take by mouth daily at bedtime. OTC as needed (Patient not taking: Reported on 06/11/2022 ) No current facility-administered medications for this visit. Past medical, surgical and social history is reviewed and unchanged from prior visit. REVIEW OF SYSTEMS: Eyes: Negative for vision changes, diplopia or epiphora. Ears, Mouth, nose, throat:No problems Cardiovascular: No Problems Respiratory: Negative for cough, wheezing and shortness of breath Gastrointestinal : See HPI. Genitourinary: neurogenic bladder Musuloskeletal: spina bifida Integumentary: no rashes, lesions, or jaundice Neurological: spina bifida Endocrine: Negative for cold or heat intolerance, polyuria, polydipsia and goiter. Psychiatric: Cooperative and agreeable Allergic/ Immunologic: Negative PHYSICAL EXAMINATION General appearance: alert, in no acute distress Skin: Skin color, texture, turgor normal, no suspicious rashes or lesions Head: Normocephalic, no masses, lesions, tenderness or abnormalities Eyes: Anicteric sclera. Lungs: Lungs clear to auscultation. No wheezing, rhonchi, rales. Heart: RRR Abdomen: Abdomen soft, non-tender. Bowel sounds normal. No masses, organomegaly Extremities: No edema, skin discoloration, clubbing or cyanosis. Assessment IMPRESSION 56-year old male with h/o neurogenic bladder, spina bifida presents today for follow up of chronic constipation/slow transit constipation. Recently admitted for suspected SBO/pseudo-obstruction 2/2 slow transit constipation. Colonoscopy last year with a tortuous, atonic and redundant colon. Discussed options to see colorectal regarding possible surgical intervention- pt is not interested at this time. PLAN - Trial increase Linzess 145mcg daily. - 2 kiwi fruit/day - Follow up 6 months. Millie Conner APRN.CNP June 11, 2022 4:08 PM documented in this encounterGreene Memorial Hospital07-19-2022 History of Present illness Narrative* Mabel Lopez LPN - 06/01/2022 1:56 PM EDT CC Bowman catheter in Place HPI: Jian Fuentes is a 56 year old male. The patient is here now for a supra bowman catheter change. Procedure: Performed a catheter change. Removed fluid from balloon in the bowman. The indwelling bowman catheter size 16 Fr Coude was removedwith catheter tip intact without difficulty. Inserted 16 Fr Coude catheter using aseptic technique.Bulb inflated with 10 mLs prefilled syringe- sterile water. Very small amount of thick urine return. Irrigated with 60 mL 0.9% sodium chloride without difficulties. Approximately 80 mLs light yellow urine return noted. Catheter secured to left inner thigh with drainage bag. The patient tolerated the procedure well. Assessment/Plan: Successful catheter change. Return for catheter changes as planned. Mabel Lopez LPN documented in this encounterGreene Memorial Hospital06-17-2022 History of Present illness Narrative* Blaire Pandey RN - 04/30/2022 2:37 PM EDT Patient present for bowman catheter change. 16F coude bowman catheter removed with cath tip intact. Patient was then prepped with betadine usingsterile technique. 16F coude bowman catheter inserted and balloon inflated with 10 mL sterile water.Approximately 50 mL of urine drained into leg bag without issue. Patient tolerated procedure without distress. Instructions given on catheter care. Blaire Pandey RN documented in this encounterGreene Memorial Hospital06-14-2022 Miscellaneous Notes* Telephone Encounter - Kassy Kyle Ma - 04/27/2022 12:13 PM EDT Order faxed * Telephone Encounter - Kassy Kyle Ma - 04/27/2022 11:[address] referral then will fax to [phone] Spoke with Enedina, then her supervisor production department Hiral, they will try to get one out to him. * Telephone Encounter - Lyndon Estes MD - 04/27/2022 11:39 AM EDT Are we able to have the agencies social media assistant see him? * Telephone Encounter - Ave Susanna WOOTEN - 04/27/2022 10:02 AM EDT Enedina from [facility] calling she opened patient case on 04/22. Pt plan of care 1 visit weekly for 1 week, 2 visits weekly for 1 week, then 1 visit weekly for 2 weeks. She is working on home exercise plan. Enedina said patient has terrible home situation. She is not sure if PCP is aware. Sister is his caregiver. They live in a tiny very old shack, very cluttered with stuff, path to the tv room. She said kitchen table is stacked with stuff had 8 x 10 space to have her computer and patient had that space to eat at the eat. He has twin bed that is half full of books, he loves to read. She said it is lashae ers living in very small space. They live back [place], with junk cars and old mobile homes, campersnear the shack. She said sister helps him bathe at bedside, has never been in the shower, has foleycatheter. She kept trying to have sister set up follow up appt with PCP, said she will not need to.Family situation is not good, another brother has mental issues not sure if he comes to the home at times. Sister had said she had head injury from other brother so she can no longer work. She wants to help but has never seen conditions like this. documented in this encounterGreene Memorial Hospital06-10-2022 Miscellaneous Notes* Telephone Encounter - Makenna Gonzalez RN - 04/23/2022 2:57 PM EDT PATIENT INFORMATION Record ID: [id number] [facility] [place]: [facility] [place] Attending: Francisca Jensen Center: General Surgery INSTRUCTIONS Continue with script and ensure patient has number or is given number to appointment center [phone] All Clear All Clear SURVEY INFORMATION Medical/Nurse Wig Stylist: Makenna Gonzalez 1. Your discharge instructions are important in guiding you through the recovery process. Is there anything I could help you clarify on your discharge instructions? (Standard Question) No, All clear 2. Do you have a follow up appointment related to your hospital stay scheduled within the next 30 days? (Standard Question) No, patient prefers to schedule in own time 3. Do you have any of the following new symptoms related to your wound?; Creamy white or foul smelling drainage Increasing redness or swelling, Increasing pain (Red Flag Question) No, no concerns at all 4. Are you tolerating your pain with your current medication? (Red Flag Question) Yes, I can tolerate my pain 5. Many patients have concerns about their medications once they are home. Do you have any questions about getting or taking your medications? (Standard Question) No 6. Do you have any new or different symptoms? (Standard Question) No documented in this encounterGreene Memorial Hospital06-10-2022 Miscellaneous Notes* Telephone Encounter - Rich Guajardo LPN - 04/23/2022 11:15 AM EDT TC hazel Wolf, detailed message left on secure identified voicemail. Rich Guajardo LPN * Telephone Encounter - Lyndon Estes MD - 04/23/2022 11:05 AM EDT Ok to start * Telephone Encounter - Jane Wiggins RN - 04/23/2022 9:30 AM EDT Maryann from [facility] will be faxing an order to provider at [phone]. This is for verbal for start of care for PT evaluation and treatment date 04/20/22. She states they will have a fax number on the paper for provider to send back to, she said to just put Attn: Penelope. documented in this encounterGreene Memorial Hospital06-07-2022 Miscellaneous Notes* Telephone Encounter - Katiana Loera LPN - 04/20/2022 3:07 PM EDT CONFIRMATION CALL a. Date and Time: 3:08 PM 04/20/2022 b. Contact name/relationship: Spoke with patients sister DARRION and she said [facility] will be providinghomecare at this time. I told her if any problems please call. Katiana Loera LPN documented in this encounterGreene Memorial Hospital05-20-2022 Miscellaneous Notes* Telephone Encounter - Mabel Quiñones RN - 04/02/2022 4:02 PM EDT Scheduling center scheduled patient with Dr Desai in April. Message sent to them to notify that he shantal patient of Dr Sofia's and should be scheduled with her. Joana Quiñones RN * Telephone Encounter - Mabel Quiñones RN - 04/01/2022 9:36 AM EDT Patient trying to make appointment with Dr Sofia but scheduling center is telling patient that he has never seen Dr Sofia. Explained that patient saw Dr Buchanan with Dr Sofia when she was a fellow in our office. Joana Quiñones RN documented in this encounterGreene Memorial Hospital05-18-2022 Miscellaneous Notes* Telephone Encounter - Juvenal Henry MD - 03/31/2022 6:24 PM EDT Updated Nurse on-Call: Paged by RN re: Mr. Jian Fuentes, a 56 yo man w/PMH s/f spina bifida with hydrocephalus s/p SUSPECT ARTIST shunt placed at , spastic paraparesis, and neurogenic bladder who last saw Dr. Sofia in Neurology clinic for spasticity. Mr. Fuentes's family called asking for a re-fill for his Baclofen for his spasticity. However, per EMR review, they have attempted to get a re-fill on 03/[address] Sofia's office, however, their request was denied by the office since they have not seen Dr. Sofia since 09/19/2020. Unfortunately I am unable to write this re-fill prescription if the Neurology office has not seen the patient in so long and requires an updated visit to prescribe. Recommendations: Recommended to call Dr. Sofia's office first thing tomorrow AM and attempt to get a visit scheduled for re-assessment and on-going re-fills. I have routed the message to Dr. Sofia as well. Juvenal Henry MD PGY-2, Neurology [phone] 6:32 PM, March 31, 2022 documented in this encounterGreene Memorial Hospital05-18-2022 Miscellaneous Notes* Telephone Encounter - Chriss Bradford RN - 03/31/2022 5:58 PM EDT The patient's sister, Lesli Bansal, is calling, seeking a refill on Baclofen 5mg for the patient. The patient is not present at this time. She states that he has been out of the medication for several days and they have been calling the office trying to get a refill and have not received word back and the pharmacy states they have not received a new order. She said due to muscle rigidity and spasms she is not able to perform his rangeof motion exercises. She respectfully requests a months worth of pills, because they live 70 miles away and it is not easy with his other medical problems to get him in for an appointment. She will call the neurology office tomorrow morning for an appointment with Dr Julita Sofia. Allergies were reviewed, (see list,) no new allergies [facility] pharmacy in [place], Paged the doctor on air personality for Dr Sofia, and Dr Juvenal Henry responded and after review of the chart does not feel like he is able to refill this prescription. He advised that they call to speak directly with the office tomorrow for an appointment and a refill. The patient's sister was recalled and informed of the above. Although frustrated, she is most appreciative and will call the office right after 8a.m. tomorrow morning. (Dr Sofia's office phone [phone]) documented in this encounterGreene Memorial Hospital05-17-2022 Miscellaneous Notes* Telephone Encounter - Mabel Quiñones RN - 03/30/2022 1:37 PM EDT Refused refill request again as no longer under providers care. Joana Quiñones RN documented in this encounterGreene Memorial Hospital05-12-2022 Miscellaneous Notes* Telephone Encounter - Mabel Quiñones RN - 03/25/2022 4:58 PM EDT Refill request refused due to MIGNON 09/19/20. Joana Quiñones RN * Telephone Encounter - Mabel Quiñones RN - 03/25/2022 1:43 PM EDT Last OV: 09/19/[address] Buchanan Last Refill: 09/25/21 FU OV: No upcoming appointments Appropriate for refill routed to Dr Sofia for review Joana Quiñones RN * Telephone Encounter - Paco Hawkins - 03/24/2022 3:26 PM EDT Physician: Julita Sofia Call from patient requesting refill. Please E-Scribe Last OV: 09/19/20 with Dewayne Pending Prescriptions Disp Refills BACLOFEN 5 MG TABLET 90 Each 5 Sig: Take 1 tablet by mouth three times daily. CARINE: No Pharmacy Name: [facility] Pharmacy Phone #: [phone] Paco Hawkins documented in this encounterGreene Memorial Hospital05-05-2022 Miscellaneous Notes* Telephone Encounter - Laura Valentine - 03/18/2022 9:47 AM EDT Forwarding script request to covering provider for approval; in lieu of Millie's absence. documented in this encounterGreene Memorial Hospital04-22-2022 History of Present illness Narrative* Ina Bernal, RT(R) - 03/05/2022 4:00 PM EDT Radiology Service Progress Note PATIENT NAME: Jian Fuentes DATE OF SERVICE: March 05, 2022 TIME: 4:34 PM PATIENT IDENTITY VERIFICATION COMPLETED USING TWO (2) IDENTIFIERS: Name and Date of confirmedby patient verbally and Name and Date of confirmed by identification band. FALL SCREENING: Has the patient had 2 falls in the last year or 1 fall with injury or currently using an Ambulatory Assistive Device (Walker, Cane, Wheelchair, Crutches, etc.)? Yes, Patient High Riskfor Falls What interventions were put in place to prevent falls during this visit? Increased Observations by Caregivers PATIENT GENDER DATA: Male PATIENT RELEVANT IMPLANT DATA REVIEWED: Yes RADIOLOGY DEPARTMENT: CT; Exam(s) Completed: Abdomen/Pelvis PERIPHERAL IV DATA: Not applicable SIGNED BY: RT Eitan(R) March 05, 2022 4:34 PM documented in this encounterGreene Memorial Hospital04-06-2022 Miscellaneous Notes* Telephone Encounter - Laura Jacobo RN - 02/17/2022 11:46 AM EDT Will have patient contact schedulers to schedule appointments. * Telephone Encounter - Keisha Jin - 02/17/2022 11:15 AM EDT Patient is at [facility] currently wants to know if they can schedule CT while they are here want a call back form Laura. 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 Soto and Dr. Ramos for neurogenic bladder Last seen in March 2021- Previous local hospital admission 01/19-01/24/22 Small bowel obstruction Bladder stone, kidney stone Recent CT imaging completed Creatinine Date Value Ref Range Status 01/27/2022 0.59 (L) 0.73 - 1.22 mg/dL Final Contrast Dye allergy UROL Staff Reviewed PMH/PSH, medications and ROS noted by RN/resident. Agree with details. Follow up re: bladder dysfunction and bladder stones. Re-iterated discussion held by Dr. Soto -Continue with urethral catheter -consider SP tube -ileal conduit if role for other surgery Per sister, she is fine with continued urethral catheter. Will change monthly. CT non-contrast to assess for stones. Marcelo Prince MD documented in this encounterGreene Memorial Hospital04-05-2022 Miscellaneous Notes* Telephone Encounter - Laura Jacobo RN - 02/16/2022 9:20 AM EDT Message sent to schedulers. * Telephone Encounter - Keisha Allen Pss - 02/16/2022 8:55 AM EDT Sister wants a call back to schedule CT with the Clinic for the patient documented in this encounterGreene Memorial Hospital04-05-2022 Miscellaneous Notes* Telephone Encounter - Laura Perez Sec - 02/16/2022 8:49 AM EDT Patient's sister called stating that he's completely out of his Linzess medication. Can refills be added this time please? Forwarding script request to covering provider for approval; in lieu of Millie's absence. documented in this encounterGreene Memorial Hospital04-05-2022 Miscellaneous Notes* Telephone Encounter - Laura Jacobo RN - 02/16/2022 8:36 AM EDT Discussed with patient , that we will cancel CT scan since he has a contrast allergy. We will have someone send prescription for medications to take, patient will call and reschedule CT scan * Telephone Encounter - Keisha Allen Pss - 02/16/2022 8:16 AM EDT Sister has concerns about the drink that patient has to consume before image testing wants a call back. [facility] History of Present illness Narrative* Mabel Lopez LPN - 02/12/2022 10:49 AM EDT CC Bowman catheter in Place HPI: Jian Fuentes is a 56 year old male. The patient is here now for a bowman catheter change. Darrion, patients sister/caregiver, reports that bowman catheter last changed at [facility] on 01/10/2022. Procedure: Performed a catheter change. Removed fluid from balloon in the bowman. The indwelling bowman catheter bowman size 16 Fr coude was removed with catheter tip intact without difficulty. Inserted 16 Fr Coude Silicone catheter using aseptic technique. Bulb infalted with 10 mLs prefilled syringe. Irrigated with 60 mL sterile water without difficulties. 60 mLs clear yellow urine return noted. Catheter secured to left inner thigh with drainage bag. Instructions on catheter care and importance of changing catheter every 4-6 weeks. The patient tolerated the procedure well. Assessment/Plan: Successful catheter change. Return for catheter changes as planned. Mabel Lopez LPN documented in this encounterGreene [facility]03-22-[facility]22 History of Present illness Narrative* Lamont Eller MD - 02/02/2022 2:11 PM EDT Consultation requested by Self for an opinion regarding Jian Fuentes, who presents today for recurrent SBO.. My final recommendations will be communicated back to the requesting physician byway of shared Medical record or letter to requesting physician via US mail. [facility] STAFF PHYSICIAN NOTE OF PERSONAL INVOLVEMENT IN CARE I have reviewed the consult note obtained and documented by the resident and I personally participated in the giraldo components. I have discussed the case and management of the patient's care. The following comments revise or confirm relevant giraldo components of the note. IMPRESSION: This is a 56 year old with recurrent SBO, last episode 2 weeks ago, prior in Sept. prior abdominal surgery. now back to normal. PMHx per resident including SUSPECT ARTIST shunt. PLAN: options of surgery now vs waiting for recurrent sx discussed. will repeat imaging now and decide. CT with PO contrast only. Medical Decision Making Daniel Eller MD Date of Service: February 02, 2022 Time of Service: 2:22 PM documented in [facility]22 History and physical note * Nicho Jimenes MD - 02/02/2022 2:08 PM EDT SURGICAL SERVICES HISTORY AND PHYSICAL EXAMINATION SERVICE DATE: 02/02/2022 SERVICE TIME: 2:08 PM PRIMARY CARE PHYSICIAN: Lyndon Estes MD SUBJECTIVE CHIEF COMPLAINT: Small bowel obstruction HISTORY OF PRESENT ILLNESS: Mr. Fuentes is a 56 year old male with a PMHx of spina bifida, hydrocephalus s/p SUSPECT ARTIST shunt and dysmotility requiring regular suppositories and bowel regimen presents for follow up after small bowel obstruction. The patient had a recent admission for an obstructive episode on 01/19. Presenting with abdominal pain, nausea and vomiting. He was discharged after being treated with bowel rest and NGT decompression and discharged on 01/24 after normal SBFT study and return of bowel function. He had a previous episode of obstruction in July of 2021, at that time treated nonoperatively. Since discharge he has had no more abdominal pain, nausea or vomiting and has had regular bowel movements, however requiring more suppositories and enemas compared to his base line. He is tolerating a regular diet, takesmetamucil once a day and rectal suppositories. PAST MEDICAL HISTORY: PAST MEDICAL HISTORY Diagnosis Date Bowel dysfunction Constipation Hydrocephalus (HCC) Inguinal hernia left - imaging at [facility] Sleep apnea Spina bifida (HCC) Urinary retention PAST SURGICAL HISTORY: PAST SURGICAL HISTORY Procedure Laterality Date CRTJ SHUNT [id number] TERMINUS PAST SURGICAL HISTORY OF repair of hamstring FAMILY HISTORY: FAMILY HISTORY Problem Relation Age of Onset Allergies Father Stroke Other Arthritis Other Cancer Brother lung cancer Asthma Sister other (head injury) Sister SOCIAL HISTORY: Social History Tobacco Use Smoking status: Never Smoker Smokeless tobacco: Never Used Substance Use Topics Alcohol use: No Drug use: No I have confirmed and edited as necessary, the PFSH and ROS obtained by others. MEDICATIONS: Prior to Admission Medications: (Not in a hospital admission) No current facility-administered medications for this visit. ALLERGIES: ALLERGIES Allergen Reactions Contrast Dye Anaphylaxis Fd And C Blue No.1 Iodinated Contrast * Anaphylaxis Macrodantin [Nitrof* GI Upset Nitrofurantoin GI Upset Phenytoin COMPLETE REVIEW OF SYSTEMS: A 10 Point Review of Systems was completed; pertinent positives are noted above in HPI, all other reviewed are negative PAIN ASSESSMENT: Negative for pain, history of chronic pain, or current treatment for a chronic pain condition. GENERAL: No weight loss, malaise or fevers RESPIRATORY: Negative for cough, hemoptysis, wheezing, COPD, dyspnea or shortness of breath CARDIOVASCULAR: Negative for chest pain, leg swelling, hypertension, CHF or palpitations GI: See HPI ASSOCIATE SALES: Negative for abnormal vaginal bleeding, abnormal vaginal discharge SKIN: Negative for lesions, rash, and itching NEURO: No history of headaches, syncope, paralysis, seizures or tremors OBJECTIVE PHYSICAL EXAM: BP 145/91 Pulse 83 Temp (Src) 97.9 (Oral) Resp 20 Ht [unable to obtain[ (0.00m) Wt 0 lb (0.0kg) SpO2 100[RA]% GENERAL: Alert, no distress, cooperative SKIN: Skin color, texture, turgor normal. No rashes or lesions. HEAD/SINUSES: No significant findings. EYES: EOMI and anicteric sclerae NECK: Supple, no thyromegaly LUNGS: Lungs clear to auscultation, Good diaphragmatic excursion CARDIAC: Normal S1 and S2; no rubs, murmurs, or gallops ABDOMEN: Abdomen soft, non-tender, non-distended, BS normal EXTREMITIES: Extremities normal, no deformities, edema, clubbing or skin discoloration. Good capillary refill., No ulcers PULSES: 2+ radial ASSESSMENT AND PLAN Jian Fuentes is a 56 year old male with a PMH as noted above who presents for follow up after an episode of bowel obstruction. The patient is doing well clinically with obstructive symptoms resolved. Given his initial CT scan that was showing the obstruction has a concerning area of possible mesenteric twist, it is reasonable to repeat imaging and reevaluate. Scan will be done with only PO contrast due to anaphylactic reaction to contrast being charted in EMR. - Repeat CT A/P with oral contrast Nicho Jimenes MD PGY-2 General Surgery Resident Pager: [phone] 02/02/2022 documented in this encounterGre[facility]03-14-2022 Miscellaneous Notes* Telephone Encounter - Marcela Rowland LPN - 01/25/2022 2:45 PM EDT Called patient to gather medical record info. Patient voicemail not set up Spoke with patient sister, records at [facility]. Records requested 01/26/22 documented in this encounterGre[facility] History of Past illness Narrative* Problem Noted Date Resolved Date CP (CEREBRAL PALSY - INFANTILE) HEMIPLEGIA, TESFAYE ENITAL 02/02/2008 05/22/2013 documented as of this encounter (statuses as of 02/03/2022) [address]21-2008 History of Past illness Narrative* Problem Noted Date Resolved Date CP (CEREBRAL PALSY - INFANTILE) HEMIPLEGIA, TESFAYE ENITAL 02/02/2008 05/22/2013 documented as of this encounter (statuses as of 02/04/2022) [address]21-2008 History of Past illness Narrative* Problem Noted Date Resolved Date CP (CEREBRAL PALSY - INFANTILE) HEMIPLEGIA, TESFAYE ENITAL 02/02/2008 05/22/2013 documented as of this encounter (statuses as of 02/12/2022) [facility] Narrative* Problem Noted Date Resolved Date CP (CEREBRAL PALSY - INFANTILE) HEMIPLEGIA, TESFAYE ENITAL 02/02/2008 05/22/2013 documented as of this encounter (statuses as of 02/16/2022) [facility] illness Narrative* Problem Noted Date Resolved Date CP (CEREBRAL PALSY - INFANTILE) HEMIPLEGIA, TESFAYE ENITAL 02/02/2008 05/22/2013 documented as of this encounter (statuses as of 02/17/2022) [address]-2008 History of Past illness Narrative* Problem Noted Date Resolved Date CP (CEREBRAL PALSY - INFANTILE) HEMIPLEGIA, TESFAYE ENITAL 02/02/2008 05/22/2013 documented as of this encounter (statuses as of 02/17/2022) [facility] Narrative* Problem Noted Date Resolved Date CP (CEREBRAL PALSY - INFANTILE) HEMIPLEGIA, TESFAYE ENITAL 02/02/2008 05/22/2013 documented as of this encounter (statuses as of 02/18/2022) [facility] Narrative* Problem Noted Date Resolved Date CP (CEREBRAL PALSY - INFANTILE) HEMIPLEGIA, TESFAYE ENITAL 02/02/2008 05/22/2013 documented as of this encounter (statuses as of 02/22/2022) [facility] Narrative* Problem Noted Date Resolved Date CP (CEREBRAL PALSY - INFANTILE) HEMIPLEGIA, TESFAYE ENITAL 02/02/2008 05/22/2013 documented as of this encounter (statuses as of 03/04/2022) [facility] Narrative* Problem Noted Date Resolved Date CP (CEREBRAL PALSY - INFANTILE) HEMIPLEGIA, TESFAYE ENITAL 02/02/2008 05/22/2013 documented as of this encounter (statuses as of 03/06/2022) [facility] Narrative* Problem Noted Date Resolved Date CP (CEREBRAL PALSY - INFANTILE) HEMIPLEGIA, TESFAYE ENITAL 02/02/2008 05/22/2013 documented as of this encounter (statuses as of 03/06/2022) [facility] Narrative* Problem Noted Date Resolved Date CP (CEREBRAL PALSY - INFANTILE) HEMIPLEGIA, TESFAYE ENITAL 02/02/2008 05/22/2013 documented as of this encounter (statuses as of 03/18/2022) [facility] Narrative* Problem Noted Date Resolved Date CP (CEREBRAL PALSY - INFANTILE) HEMIPLEGIA, TESFAYE ENITAL 02/02/2008 05/22/2013 documented as of this encounter (statuses as of 03/25/2022) [facility] Narrative* Problem Noted Date Resolved Date CP (CEREBRAL PALSY - INFANTILE) HEMIPLEGIA, TESFAYE ENITAL 02/02/2008 05/22/2013 documented as of this encounter (statuses as of 03/30/2022) [address]-2008 History of Past illness Narrative* Problem Noted Date Resolved Date CP (CEREBRAL PALSY - INFANTILE) HEMIPLEGIA, TESFAYE ENITAL 02/02/2008 05/22/2013 documented as of this encounter (statuses as of 03/31/2022) [address]-2008 History of Past illness Narrative* Problem Noted Date Resolved Date CP (CEREBRAL PALSY - INFANTILE) HEMIPLEGIA, TESFAYE ENITAL 02/02/2008 05/22/2013 documented as of this encounter (statuses as of 04/07/2022) [facility] Narrative* Problem Noted Date Resolved Date CP (CEREBRAL PALSY - INFANTILE) HEMIPLEGIA, TESFAYE ENITAL 02/02/2008 05/22/2013 documented as of this encounter (statuses as of 04/20/2022) [facility] Narrative* Problem Noted Date Resolved Date CP (CEREBRAL PALSY - INFANTILE) HEMIPLEGIA, TESFAYE ENITAL 02/02/2008 05/22/2013 documented as of this encounter (statuses as of 04/22/2022) [facility] Narrative* Problem Noted Date Resolved Date CP (CEREBRAL PALSY - INFANTILE) HEMIPLEGIA, TESFAYE ENITAL 02/02/2008 05/22/2013 documented as of this encounter (statuses as of 04/23/2022) [facility] Narrative* Problem Noted Date Resolved Date CP (CEREBRAL PALSY - INFANTILE) HEMIPLEGIA, TESFAYE ENITAL 02/02/2008 05/22/2013 documented as of this encounter (statuses as of 04/27/2022) [facility] Narrative* Problem Noted Date Resolved Date CP (CEREBRAL PALSY - INFANTILE) HEMIPLEGIA, TESFAYE ENITAL 02/02/2008 05/22/2013 documented as of this encounter (statuses as of 04/30/2022) [facility] Narrative* Problem Noted Date Resolved Date CP (CEREBRAL PALSY - INFANTILE) HEMIPLEGIA, TESFAYE ENITAL 02/02/2008 05/22/2013 documented as of this encounter (statuses as of 06/01/2022) [address]21-2008 History of Past illness Narrative* Problem Noted Date Resolved Date CP (CEREBRAL PALSY - INFANTILE) HEMIPLEGIA, TESFAYE ENITAL 02/02/2008 05/22/2013 documented as of this encounter (statuses as of 06/14/2022) [address]21-2008 History of Past illness Narrative* Problem Noted Date Resolved Date CP (CEREBRAL PALSY - INFANTILE) HEMIPLEGIA, TESFAYE ENITAL 02/02/2008 05/22/2013 documented as of this encounter (statuses as of 07/16/2022) [address]21-2008 History of Past illness Narrative* Problem Noted Date Resolved Date CP (CEREBRAL PALSY - INFANTILE) HEMIPLEGIA, TESFAYE ENITAL 02/02/2008 05/22/2013 documented as of this encounter (statuses as of 07/26/2022) [address]21-2008 History of Past illness Narrative* Problem Noted Date Resolved Date CP (CEREBRAL PALSY - INFANTILE) HEMIPLEGIA, TESFAYE ENITAL 02/02/2008 05/22/2013 documented as of this encounter (statuses as of 07/27/2022) [address]21-2008 History of Past illness Narrative* Problem Noted Date Resolved Date CP (CEREBRAL PALSY - INFANTILE) HEMIPLEGIA, TESFAYE ENITAL 02/02/2008 05/22/2013 documented as of this encounter (statuses as of 07/30/2022) [address]21-2008 History of Past illness Narrative* Problem Noted Date Resolved Date CP (CEREBRAL PALSY - INFANTILE) HEMIPLEGIA, TESFAYE ENITAL 02/02/2008 05/22/2013 documented as of this encounter (statuses as of 07/30/2022) [address]21-2008 History of Past illness Narrative* Problem Noted Date Resolved Date CP (CEREBRAL PALSY - INFANTILE) HEMIPLEGIA, TESFAYE ENITAL 02/02/2008 05/22/2013 documented as of this encounter (statuses as of 08/02/2022) [address]21-2008 History of Past illness Narrative* Problem Noted Date Resolved Date CP (CEREBRAL PALSY - INFANTILE) HEMIPLEGIA, TESFAYE ENITAL 02/02/2008 05/22/2013 documented as of this encounter (statuses as of 08/02/2022) [address]-2008 History of Past illness Narrative* Problem Noted Date Resolved Date CP (CEREBRAL PALSY - INFANTILE) HEMIPLEGIA, TESFAYE ENITAL 02/02/2008 05/22/2013 documented as of this encounter (statuses as of 08/03/2022) [facility]arrative* Problem Noted Date Resolved Date CP (CEREBRAL PALSY - INFANTILE) HEMIPLEGIA, TESFAYE ENITAL 02/02/2008 05/22/2013 documented as of this encounter (statuses as of 08/05/2022) [facility] Narrative* Problem Noted Date Resolved Date CP (CEREBRAL PALSY - INFANTILE) HEMIPLEGIA, TESFAYE ENITAL 02/02/2008 05/22/2013 documented as of this encounter (statuses as of 08/06/2022) [facility] Narrative* Problem Noted Date Resolved Date CP (CEREBRAL PALSY - INFANTILE) HEMIPLEGIA, TESFAYE ENITAL 02/02/2008 05/22/2013 documented as of this encounter (statuses as of 08/10/2022) [facility] Narrative* Problem Noted Date Resolved Date CP (CEREBRAL PALSY - INFANTILE) HEMIPLEGIA, TESFAYE ENITAL 02/02/2008 05/22/2013 documented as of this encounter (statuses as of 08/19/2022) [facility]arrative* Problem Noted Date Resolved Date CP (CEREBRAL PALSY - INFANTILE) HEMIPLEGIA, TESFAYE ENITAL 02/02/2008 05/22/2013 documented as of this encounter (statuses as of 08/20/2022) [facility] Narrative* Problem Noted Date Resolved Date CP (CEREBRAL PALSY - INFANTILE) HEMIPLEGIA, TESFAYE ENITAL 02/02/2008 05/22/2013 documented as of this encounter (statuses as of 08/24/2022) [facility] Narrative* Problem Noted Date Resolved Date CP (CEREBRAL PALSY - INFANTILE) HEMIPLEGIA, TESFAYE ENITAL 02/02/2008 05/22/2013 documented as of this encounter (statuses as of 08/25/2022) [facility] Narrative* Problem Noted Date Resolved Date CP (CEREBRAL PALSY - INFANTILE) HEMIPLEGIA, TESFAYE ENITAL 02/02/2008 05/22/2013 documented as of this encounter (statuses as of 09/01/2022) [address]21-2008 History of Past illness Narrative* Problem Noted Date Resolved Date CP (CEREBRAL PALSY - INFANTILE) HEMIPLEGIA, TESFAYE ENITAL 02/02/2008 05/22/2013 documented as of this encounter (statuses as of 09/06/2022) [address]21-2008 History of Past illness Narrative* Problem Noted Date Resolved Date CP (CEREBRAL PALSY - INFANTILE) HEMIPLEGIA, TESFAYE ENITAL 02/02/2008 05/22/2013 documented as of this encounter (statuses as of 09/10/2022) [facility]arrative* Problem Noted Date Resolved Date CP (CEREBRAL PALSY - INFANTILE) HEMIPLEGIA, TESFAYE ENITAL 02/02/2008 05/22/2013 documented as of this encounter (statuses as of 09/22/2022) [facility]arrative* Problem Noted Date Resolved Date CP (CEREBRAL PALSY - INFANTILE) HEMIPLEGIA, TESFAYE ENITAL 02/02/2008 05/22/2013 documented as of this encounter (statuses as of 09/30/2022) [facility]arrative* Problem Noted Date Resolved Date CP (CEREBRAL PALSY - INFANTILE) HEMIPLEGIA, TESFAYE ENITAL 02/02/2008 05/22/2013 documented as of this encounter (statuses as of 10/04/2022) [facility]arrative* Problem Noted Date Resolved Date CP (CEREBRAL PALSY - INFANTILE) HEMIPLEGIA, TESFAYE ENITAL 02/02/2008 05/22/2013 documented as of this encounter (statuses as of 10/05/2022) [address]-2008 History of Past illness Narrative* Problem Noted Date Resolved Date CP (CEREBRAL PALSY - INFANTILE) HEMIPLEGIA, TESFAYE ENITAL 02/02/2008 05/22/2013 documented as of this encounter (statuses as of 10/06/2022) [address]21-2008 History of Past illness Narrative* Problem Noted Date Resolved Date CP (CEREBRAL PALSY - INFANTILE) HEMIPLEGIA, TESFAYE ENITAL 02/02/2008 05/22/2013 documented as of this encounter (statuses as of 10/11/2022) [address]21-2008 History of Past illness Narrative* Problem Noted Date Resolved Date CP (CEREBRAL PALSY - INFANTILE) HEMIPLEGIA, TESFAYE ENITAL 02/02/2008 05/22/2013 documented as of this encounter (statuses as of 10/12/2022) [address]21-2008 History of Past illness Narrative* Problem Noted Date Resolved Date CP (CEREBRAL PALSY - INFANTILE) HEMIPLEGIA, TESFAYE ENITAL 02/02/2008 05/22/2013 documented as of this encounter (statuses as of 10/13/2022) [address]21-2008 History of Past illness Narrative* Problem Noted Date Resolved Date CP (CEREBRAL PALSY - INFANTILE) HEMIPLEGIA, TESFAYE ENITAL 02/02/2008 05/22/2013 documented as of this encounter (statuses as of 10/15/2022) [address]21-2008 History of Past illness Narrative* Problem Noted Date Resolved Date CP (CEREBRAL PALSY - INFANTILE) HEMIPLEGIA, TESFAYE ENITAL 02/02/2008 05/22/2013 documented as of this encounter (statuses as of 10/22/2022) [address]-2008 History of Past illness Narrative* Problem Noted Date Resolved Date CP (CEREBRAL PALSY - INFANTILE) HEMIPLEGIA, TESFAYE ENITAL 02/02/2008 05/22/2013 documented as of this encounter (statuses as of 11/03/2022) [address]-2008 History of Past illness Narrative* Problem Noted Date Resolved Date CP (CEREBRAL PALSY - INFANTILE) HEMIPLEGIA, TESFAYE ENITAL 02/02/2008 05/22/2013 documented as of this encounter (statuses as of 12/16/2022) [address]-2008 History of Past illness Narrative* Problem Noted Date Resolved Date CP (CEREBRAL PALSY - INFANTILE) HEMIPLEGIA, TESFAYE ENITAL 02/02/2008 05/22/2013 documented as of this encounter (statuses as of 12/16/2022) [address]-2008 History of Past illness Narrative* Problem Noted Date Resolved Date CP (CEREBRAL PALSY - INFANTILE) HEMIPLEGIA, TESFAYE ENITAL 02/02/2008 05/22/2013 documented as of this encounter (statuses as of 12/17/2022) [address]-2008 History of Past illness Narrative* Problem Noted Date Resolved Date CP (CEREBRAL PALSY - INFANTILE) HEMIPLEGIA, TESFAYE ENITAL 02/02/2008 05/22/2013 documented as of this encounter (statuses as of 12/21/2022) [facility]arr[facility]* Problem Noted Date Resolved Date CP (CEREBRAL PALSY - INFANTILE) HEMIPLEGIA, TESFAYE ENITAL 02/02/2008 05/22/2013 documented as of this encounter (statuses as of 01/28/2023) [facility]arrative* Problem Noted Date Resolved Date CP (CEREBRAL PALSY - INFANTILE) HEMIPLEGIA, TESFAYE ENITAL 02/02/2008 05/22/2013 documented as of this encounter (statuses as of 02/12/2023) [facility]ative* Problem Noted Date Resolved Date CP (CEREBRAL PALSY - INFANTILE) HEMIPLEGIA, TESFAYE ENITAL 02/02/2008 05/22/2013 documented as of this encounter (statuses as of 02/15/2023) [facility]* Problem Noted Date Resolved Date CP (CEREBRAL PALSY - INFANTILE) HEMIPLEGIA, TESFAYE ENITAL 02/02/2008 05/22/2013 documented as of this encounter (statuses as of 02/16/2023) [facility]arr[facility]* Problem Noted Date Resolved Date CP (CEREBRAL PALSY - INFANTILE) HEMIPLEGIA, TESFAYE ENITAL 02/02/2008 05/22/2013 documented as of this encounter (statuses as of 02/17/2023) [facility]* Problem Noted Date Resolved Date CP (CEREBRAL PALSY - INFANTILE) HEMIPLEGIA, TESFAYE ENITAL 02/02/2008 05/22/2013 documented as of this encounter (statuses as of 02/18/2023) [facility]* Problem Noted Date Resolved Date CP (CEREBRAL PALSY - INFANTILE) HEMIPLEGIA, TESFAYE ENITAL 02/02/2008 05/22/2013 documented as of this encounter (statuses as of 02/26/2023) [facility]arrative* Problem Noted Date Resolved Date CP (CEREBRAL PALSY - INFANTILE) HEMIPLEGIA, TESFAYE ENITAL 02/02/2008 05/22/2013 documented as of this encounter (statuses as of 03/09/2023) [facility]arrative* Problem Noted Date Resolved Date CP (CEREBRAL PALSY - INFANTILE) HEMIPLEGIA, TESFAYE ENITAL 02/02/2008 05/22/2013 documented as of this encounter (statuses as of 03/10/2023) [facility]arrative* Problem Noted Date Resolved Date CP (CEREBRAL PALSY - INFANTILE) HEMIPLEGIA, TESFAYE ENITAL 02/02/2008 05/22/2013 documented as of this encounter (statuses as of 03/10/2023) [facility] note* Diagnosis Small bowel obstruction (HCC)- Primary Unspecified [facility] Diagnosis Urinary retention- Primary Retention of urine, unspecified [facility] Diagnosis Calculus of urinary bladder [facility] Diagnosis Chronic constipation Unspecified constipation [facility] Diagnosis Screening for genitourinary condition Screening for other and unspecified genitourinary condition [facility] Diagnosis Small bowel obstruction (HCC) Unspecified intestinal obstruction Urinary retention Retention of urine, unspecified [facility]* Diagnosis Chronic constipation Unspecified constipation [facility] Diagnosis Spina bifida with hydrocephalus, unspecified spinal region (FORMERLY [facility] Diagnosis Neurogenic bladder- Primary Neurogenic bladder, NOS [facility] Diagnosis Neurogenic bladder- Primary Neurogenic bladder, NOS [facility] Diagnosis Chronic constipation- Primary Unspecified constipation [facility] Diagnosis Spina bifida with hydrocephalus, unspecified spinal region (HCC)- Primary Acquired deformity of ankle and foot, unspecified laterality Neurogenic bladder Neurogenic bladder, NOS SBO (small bowel obstruction) (HCC) Unspecified intestinal obstruction Congenital hydrocephalus (HCC) Congenital hydrocephalus History of brain shunt [facility] Diagnosis SBO (small bowel obstruction) (HCC)- Primary Unspecified intestinal obstruction Need for influenza vaccination Need for prophylactic vaccination and inoculation against influenza Recurrent UTI (urinary tract infection) Urinary tract infection, site not specified Congenital hydrocephalus (HCC) Congenital hydrocephalus Spina bifida with hydrocephalus, unspecified spinal region (HCC) Neurogenic bladder Neurogenic bladder, NOS Hyponatremia Hyposmolality and/or hyponatremia Fungal dermatitis Dermatomycosis, unspecified [facility] Diagnosis Thrombocytosis- Primary Essential thrombocythemia Hyperkalemia Hyperpotassemia [facility] Diagnosis Abnormal urine color- Primary Other nonspecific finding on examination of urine Urinary catheter in place Other postprocedural status [facility] Diagnosis Spina bifida with hydrocephalus, unspecified spinal region (HCC)- Primary Congenital hydrocephalus (HCC) Congenital hydrocephalus [facility] Diagnosis Urinary tract infection without hematuria, site unspecified- Primary Hyponatremia Hyposmolality and/or hyponatremia Urinary catheter in place Other postprocedural status Neurogenic bladder Neurogenic bladder, NOS Spina bifida with hydrocephalus, unspecified spinal region (HCC) [facility] Diagnosis Thrombocytosis- Primary Essential thrombocythemia Hyponatremia Hyposmolality and/or hyponatremia [facility] Diagnosis Chronic constipation- Primary Unspecified constipation Spina bifida with hydrocephalus, unspecified spinal region (HCC) Redundant colon Other congenital anomalies of intestine History of small bowel obstruction Personal history of other diseases of digestive system [facility] Diagnosis Neurogenic bladder- Primary Neurogenic bladder, NOS [facility] Diagnosis Screening for genitourinary condition Screening for other and unspecified genitourinary condition [facility] Diagnosis Renal insufficiency- Primary Unspecified disorder of kidney and ureter [facility] Diagnosis Acute pseudo-obstruction of bowel- Primary Other specified intestinal obstruction Gastroparesis Spina bifida with hydrocephalus, unspecified spinal region (HCC) Hypokalemia Hypopotassemia [facility]* Diagnosis Hyponatremia- Primary Hyposmolality and/or hyponatremia [facility] Diagnosis Hyponatremia- Primary Hyposmolality and/or hyponatremia [facility]* Diagnosis Constipation, unspecified constipation type- Primary Redundant colon Other congenital anomalies of intestine H/O small bowel obstruction Personal history of other diseases of digestive system Spina bifida with hydrocephalus, unspecified spinal region (HCC) Neurogenic bladder Neurogenic bladder, NOS [facility] Diagnosis Hydrocephalus, unspecified type (HCC)- Primary Encounter for immunization Need for other specified prophylactic vaccination against single bacterial disease Spina bifida with hydrocephalus, unspecified spinal region (HCC) Congenital hydrocephalus (HCC) Congenital hydrocephalus Neurogenic bladder Neurogenic bladder, NOS Gastroparesis Chronic cough Cough Dark urine Other nonspecific finding on examination of urine Hyponatremia Hyposmolality and/or hyponatremia Urinary retention Retention of urine, unspecified Hypokalemia Hypopotassemia Thrombocytosis Essential thrombocythemia [facility]* Diagnosis Hyponatremia- Primary Hyposmolality and/or hyponatremia [facility] Diagnosis Spina bifida with hydrocephalus, unspecified spinal region (HCC) documented [facility] Summary Purpose Family History No Family History Records FoundNo Family History Records FoundNo Family History Records Found Advance Directives Documents on File Type Date Recorded Patient [employer] Expl anation Advance Directive(s) 03/27/2021 1:27 PM Advance Directive(s) 02/18/2021 9:25 AM Documents on File Type Date Recorded Patient [employer] Expl anation Advance Directive(s) 03/27/2021 1:27 PM Advance Directive(s) 02/18/2021 9:25 AM Documents on File Type Date Recorded Patient [employer] Expl anation Advance Directive(s) 04/14/2022 6:51 PM Advance Directive(s) 03/27/2021 1:27 PM Advance Directive(s) 02/18/2021 9:25 AM Documents on File Type Date Recorded Patient [employer] Expl anation Advance Directive(s) 04/04/2023 7:49 PM Documents on File Type Date Recorded Patient [employer] Expl anation Advance Directive(s) 04/04/2023 7:49 PM Reason for Referral Specialty Diagnoses / Procedures Referred By Contac t Referred To Contact CT IMAGING Diagnoses Small bowel obstruction (HCC) Procedures CT ABD/PEL WO IVCON CT ABD & PEL[place] [address] [place] [address] Ct Imaging Referral ID Status Reason Start Date Expiration Date Visits Requested Visits Authorized [id number] Authorized Auto-Generat ed Referral 03/05/2022 03/04/2023 1 1 Specialty Diagnoses / Procedures Referred By Contac t Referred To Contact CT IMAGING Diagnoses Calculus of urinary bladder Procedures CT FLANK WO IVCON CT ABD & PELVIS W/O CONTRAST Marcelo Prince MD [address] [place] [address] Ct Imaging Referral ID Status Reason Start Date Expiration Date Visits Requested Visits Authorized [id number] Pending Review Auto-Generat ed Referral 02/26/2022 03/19/2023 1 1 Referral ID Status Reason Start Date Expiration Date V isits Requested Visits Authorized [id number] Closed Auto-Generate d Referral 03/05/2022 03/04/2023 1 1 Specialty Diagnoses / Procedures Referred By Contac t Referred To Contact [facility] Diagnoses Spina bifida with hydrocephalus, unspecified spinal region (HCC) Procedures CONSULT TO PHYSICAL MEDICINE AND REHABILITATION OFFICE/OUTPATIENT [facility] 60-74 MINUTES Julita Sofia DO [address] [place] [address] [facility] [place] [address] [place] [address] Referral ID Status Reason Start Date Expiration Date Visits Requested Visits Authorized [id number] Pending Review PCP Requested Referral Auto-Generate d Referral 07/16/2022 07/16/2023 1 1 Specialty Diagnoses / Procedures Referred By Contac t Referred To Contact Neurology Diagnoses Spina bifida with hydrocephalus, unspecified spinal region (HCC) Congenital hydrocephalus (HCC) Hydrocephalus, unspecified type (HCC) Neurogenic bladder Procedures CONSULT TO NEUROLOGY OFFICE/OUTPATIENT [facility] 60-74 MINUTES Lyndon Estes MD [address] [place] [address] Referral ID Status Reason Start Date Expiration Date Visits Requested Visits Authorized [id number] Pending Review PCP Requested Referral 08/03/2023 08/02/2024 1 1 Specialty Diagnoses / Procedures Referred By Contac t Referred To Contact [facility] Diagnoses Chronic cough Procedures LUNG DIFFUSION CAPACITY (DLCO) DIFFUSING CAPACITY Lyndon Estes MD [address] [place] [address] [address] Referral ID Status Reason Start Date Expiration Date Visits Requested Visits Authorized [id number] Pending Review Auto-Generat ed Referral 08/03/2023 09/01/2024 1 1 Specialty Diagnoses / Procedures Referred By Contac t Referred To Contact [facility] Diagnoses Chronic cough Procedures SPIROMETRY WITH DILATOR IF OBSTRUCTED BRNCDILAT RSPSE SPMTRY PRE&POST-BRNCDILAT ADMN Lyndon Estes MD [address] [place] [address] [address] Referral ID Status Reason Start Date Expiration Date Visits Requested Visits Authorized [id number] Pending Review Auto-Generat ed Referral 08/03/2023 09/01/2024 1 1 Additional Source Comments (unrecognized sect ion and content) No Status Records FoundNo Status Records FoundNo Status Records Found INFORMATION SOURCE (unrecogn ized section and content) DATE CREATED AUTHOR AUTHOR'S ORGANIZ ATION 12/23/2022 [facility] DATE CREATED AUTHOR AUTHOR'S ORGANIZ ATION 09/05/2023 [facility] Source Comments (unrecognize d section and content) In the event this informatio n is protected by the Federal Confidentiality of Alcohol and Drug Abuse Patient Records regulations: The Federal rules restrict any use of the information to criminally investigate or prosecute any alcohol or drug abuse patient.[facility] the event this information is protected by the Federal Confidentiality of Alcohol and Drug Abuse Patient Records regulations: The Federal rules restrict any use of the information to criminally investigate or prosecute any alcohol or drug abuse patient.[facility] the event this information is protected by the Federal Confidentiality of Alcohol and Drug Abuse Patient Records regulations: The Federal rules restrict any use of the information to criminally investigate or prosecute any alcohol or drug abuse patient.[facility] the event this information is protected by the Federal Confidentiality of Alcohol and Drug Abuse Patient Records regulations: The Federal rules restrict any use of the information to criminally investigate or prosecute any alcohol or drug abuse patient.[facility] the event this information is protected by the Federal Confidentiality of Alcohol and Drug Abuse Patient Records regulations: The Federal rules restrict any use of the information to criminally investigate or prosecute any alcohol or drug abuse patient.[facility] the event this information is protected by the Federal Confidentiality of Alcohol and Drug Abuse Patient Records regulations: The Federal rules restrict any use of the information to criminally investigate or prosecute any alcohol or drug abuse patient.[facility] the event this information is protected by the Federal Confidentiality of Alcohol and Drug Abuse Patient Records regulations: The Federal rules restrict any use of the information to criminally investigate or prosecute any alcohol or drug abuse patient.[facility]In the event this information is protected by the Federal Confidentiality of Alcohol and Drug Abuse Patient Records regulations: The Federal rules restrict any use of the information to criminally investigate or prosecute any alcohol or drug abuse patient.[facility]In the event this information is protected by the Federal Confidentiality of Alcohol and Drug Abuse Patient Records regulations: The Federal rules restrict any use of the information to criminally investigate or prosecute any alcohol or drug abuse patient.[facility] the event this information is protected by the Federal Confidentiality of Alcohol and Drug Abuse Patient Records regulations: The Federal rules restrict any use of the information to criminally investigate or prosecute any alcohol or drug abuse patient.[facility]In the event this information is protected by the Federal Confidentiality of Alcohol and Drug Abuse Patient Records regulations: The Federal rules restrict any use of the information to criminally investigate or prosecute any alcohol or drug abuse patient.[facility]In the event this information is protected by the Federal Confidentiality of Alcohol and Drug Abuse Patient Records regulations: The Federal rules restrict any use of the information to criminally investigate or prosecute any alcohol or drug abuse patient.[facility] HospitalIn the event this information is protected by the Federal Confidentiality of Alcohol and Drug Abuse Patient Records regulations: The Federal rules restrict any use of the information to criminally investigate or prosecute any alcohol or drug abuse patient.[facility]In the event this information is protected by the Federal Confidentiality of Alcohol and Drug Abuse Patient Records regulations: The Federal rules restrict any use of the information to criminally investigate or prosecute any alcohol or drug abuse patient.[facility]In the event this information is protected by the Federal Confidentiality of Alcohol and Drug Abuse Patient Records regulations: The Federal rules restrict any use of the information to criminally investigate or prosecute any alcohol or drug abuse patient.[facility] HospitalIn the event this information is protected by the Federal Confidentiality of Alcohol and Drug Abuse Patient Records regulations: The Federal rules restrict any use of the information to criminally investigate or prosecute any alcohol or drug abuse patient.[facility] HospitalIn the event this information is protected by the Federal Confidentiality of Alcohol and Drug Abuse Patient Records regulations: The Federal rules restrict any use of the information to criminally investigate or prosecute any alcohol or drug abuse patient.[facility] HospitalIn the event this information is protected by the Federal Confidentiality of Alcohol and Drug Abuse Patient Records regulations: The Federal rules restrict any use of the information to criminally investigate or prosecute any alcohol or drug abuse patient.[facility] HospitalIn the event this information is protected by the Federal Confidentiality of Alcohol and Drug Abuse Patient Records regulations: The Federal rules restrict any use of the information to criminally investigate or prosecute any alcohol or drug abuse patient.[facility] HospitalIn the event this information is protected by the Federal Confidentiality of Alcohol and Drug Abuse Patient Records regulations: The Federal rules restrict any use of the information to criminally investigate or prosecute any alcohol or drug abuse patient.[facility] HospitalIn the event this information is protected by the Federal Confidentiality of Alcohol and Drug Abuse Patient Records regulations: The Federal rules restrict any use of the information to criminally investigate or prosecute any alcohol or drug abuse patient.[facility] HospitalIn the event this information is protected by the Federal Confidentiality of Alcohol and Drug Abuse Patient Records regulations: The Federal rules restrict any use of the information to criminally investigate or prosecute any alcohol or drug abuse patient.[facility] HospitalIn the event this information is protected by the Federal Confidentiality of Alcohol and Drug Abuse Patient Records regulations: The Federal rules restrict any use of the information to criminally investigate or prosecute any alcohol or drug abuse patient.[facility] HospitalIn the event this information is protected by the Federal Confidentiality of Alcohol and Drug Abuse Patient Records regulations: The Federal rules restrict any use of the information to criminally investigate or prosecute any alcohol or drug abuse patient.[facility] HospitalIn the event this information is protected by the Federal Confidentiality of Alcohol and Drug Abuse Patient Records regulations: The Federal rules restrict any use of the information to criminally investigate or prosecute any alcohol or drug abuse patient.[facility] HospitalIn the event this information is protected by the Federal Confidentiality of Alcohol and Drug Abuse Patient Records regulations: The Federal rules restrict any use of the information to criminally investigate or prosecute any alcohol or drug abuse patient.[facility]In the event this information is protected by the Federal Confidentiality of Alcohol and Drug Abuse Patient Records regulations: The Federal rules restrict any use of the information to criminally investigate or prosecute any alcohol or drug abuse patient.[facility]In the event this information is protected by the Federal Confidentiality of Alcohol and Drug Abuse Patient Records regulations: The Federal rules restrict any use of the information to criminally investigate or prosecute any alcohol or drug abuse patient.[facility] HospitalIn the event this information is protected by the Federal Confidentiality of Alcohol and Drug Abuse Patient Records regulations: The Federal rules restrict any use of the information to criminally investigate or prosecute any alcohol or drug abuse patient.[facility]In the event this information is protected by the Federal Confidentiality of Alcohol and Drug Abuse Patient Records regulations: The Federal rules restrict any use of the information to criminally investigate or prosecute any alcohol or drug abuse patient.[facility] HospitalIn the event this information is protected by the Federal Confidentiality of Alcohol and Drug Abuse Patient Records regulations: The Federal rules restrict any use of the information to criminally investigate or prosecute any alcohol or drug abuse patient.[facility] HospitalIn the event this information is protected by the Federal Confidentiality of Alcohol and Drug Abuse Patient Records regulations: The Federal rules restrict any use of the information to criminally investigate or prosecute any alcohol or drug abuse patient.[facility] HospitalIn the event this information is protected by the Federal Confidentiality of Alcohol and Drug Abuse Patient Records regulations: The Federal rules restrict any use of the information to criminally investigate or prosecute any alcohol or drug abuse patient.[facility] HospitalIn the event this information is protected by the Federal Confidentiality of Alcohol and Drug Abuse Patient Records regulations: The Federal rules restrict any use of the information to criminally investigate or prosecute any alcohol or drug abuse patient.[facility]In the event this information is protected by the Federal Confidentiality of Alcohol and Drug Abuse Patient Records regulations: The Federal rules restrict any use of the information to criminally investigate or prosecute any alcohol or drug abuse patient.[facility]In the event this information is protected by the Federal Confidentiality of Alcohol and Drug Abuse Patient Records regulations: The Federal rules restrict any use of the information to criminally investigate or prosecute any alcohol or drug abuse patient.[facility] HospitalIn the event this information is protected by the Federal Confidentiality of Alcohol and Drug Abuse Patient Records regulations: The Federal rules restrict any use of the information to criminally investigate or prosecute any alcohol or drug abuse patient.[facility] HospitalIn the event this information is protected by the Federal Confidentiality of Alcohol and Drug Abuse Patient Records regulations: The Federal rules restrict any use of the information to criminally investigate or prosecute any alcohol or drug abuse patient.[facility]In the event this information is protected by the Federal Confidentiality of Alcohol and Drug Abuse Patient Records regulations: The Federal rules restrict any use of the information to criminally investigate or prosecute any alcohol or drug abuse patient.[facility] HospitalIn the event this information is protected by the Federal Confidentiality of Alcohol and Drug Abuse Patient Records regulations: The Federal rules restrict any use of the information to criminally investigate or prosecute any alcohol or drug abuse patient.[facility] HospitalIn the event this information is protected by the Federal Confidentiality of Alcohol and Drug Abuse Patient Records regulations: The Federal rules restrict any use of the information to criminally investigate or prosecute any alcohol or drug abuse patient.[facility] HospitalIn the event this information is protected by the Federal Confidentiality of Alcohol and Drug Abuse Patient Records regulations: The Federal rules restrict any use of the information to criminally investigate or prosecute any alcohol or drug abuse patient.[facility] HospitalIn the event this information is protected by the Federal Confidentiality of Alcohol and Drug Abuse Patient Records regulations: The Federal rules restrict any use of the information to criminally investigate or prosecute any alcohol or drug abuse patient.[facility] HospitalIn the event this information is protected by the Federal Confidentiality of Alcohol and Drug Abuse Patient Records regulations: The Federal rules restrict any use of the information to criminally investigate or prosecute any alcohol or drug abuse patient.[facility] HospitalIn the event this information is protected by the Federal Confidentiality of Alcohol and Drug Abuse Patient Records regulations: The Federal rules restrict any use of the information to criminally investigate or prosecute any alcohol or drug abuse patient.[facility] HospitalIn the event this information is protected by the Federal Confidentiality of Alcohol and Drug Abuse Patient Records regulations: The Federal rules restrict any use of the information to criminally investigate or prosecute any alcohol or drug abuse patient.[facility] HospitalIn the event this information is protected by the Federal Confidentiality of Alcohol and Drug Abuse Patient Records regulations: The Federal rules restrict any use of the information to criminally investigate or prosecute any alcohol or drug abuse patient.[facility] HospitalIn the event this information is protected by the Federal Confidentiality of Alcohol and Drug Abuse Patient Records regulations: The Federal rules restrict any use of the information to criminally investigate or prosecute any alcohol or drug abuse patient.[facility] HospitalIn the event this information is protected by the Federal Confidentiality of Alcohol and Drug Abuse Patient Records regulations: The Federal rules restrict any use of the information to criminally investigate or prosecute any alcohol or drug abuse patient.[facility] HospitalIn the event this information is protected by the Federal Confidentiality of Alcohol and Drug Abuse Patient Records regulations: The Federal rules restrict any use of the information to criminally investigate or prosecute any alcohol or drug abuse patient.[facility] HospitalIn the event this information is protected by the Federal Confidentiality of Alcohol and Drug Abuse Patient Records regulations: The Federal rules restrict any use of the information to criminally investigate or prosecute any alcohol or drug abuse patient.[facility] HospitalIn the event this information is protected by the Federal Confidentiality of Alcohol and Drug Abuse Patient Records regulations: The Federal rules restrict any use of the information to criminally investigate or prosecute any alcohol or drug abuse patient.[facility] HospitalIn the event this information is protected by the Federal Confidentiality of Alcohol and Drug Abuse Patient Records regulations: The Federal rules restrict any use of the information to criminally investigate or prosecute any alcohol or drug abuse patient.[facility] HospitalIn the event this information is protected by the Federal Confidentiality of Alcohol and Drug Abuse Patient Records regulations: The Federal rules restrict any use of the information to criminally investigate or prosecute any alcohol or drug abuse patient.[facility] HospitalIn the event this information is protected by the Federal Confidentiality of Alcohol and Drug Abuse Patient Records regulations: The Federal rules restrict any use of the information to criminally investigate or prosecute any alcohol or drug abuse patient.[facility] HospitalIn the event this information is protected by the Federal Confidentiality of Alcohol and Drug Abuse Patient Records regulations: The Federal rules restrict any use of the information to criminally investigate or prosecute any alcohol or drug abuse patient.[facility] HospitalIn the event this information is protected by the Federal Confidentiality of Alcohol and Drug Abuse Patient Records regulations: The Federal rules restrict any use of the information to criminally investigate or prosecute any alcohol or drug abuse patient.[facility] HospitalIn the event this information is protected by the Federal Confidentiality of Alcohol and Drug Abuse Patient Records regulations: The Federal rules restrict any use of the information to criminally investigate or prosecute any alcohol or drug abuse patient.[facility] HospitalIn the event this information is protected by the Federal Confidentiality of Alcohol and Drug Abuse Patient Records regulations: The Federal rules restrict any use of the information to criminally investigate or prosecute any alcohol or drug abuse patient.[facility] HospitalIn the event this information is protected by the Federal Confidentiality of Alcohol and Drug Abuse Patient Records regulations: The Federal rules restrict any use of the information to criminally investigate or prosecute any alcohol or drug abuse patient.[facility] HospitalIn the event this information is protected by the Federal Confidentiality of Alcohol and Drug Abuse Patient Records regulations: The Federal rules restrict any use of the information to criminally investigate or prosecute any alcohol or drug abuse patient.[facility] HospitalIn the event this information is protected by the Federal Confidentiality of Alcohol and Drug Abuse Patient Records regulations: The Federal rules restrict any use of the information to criminally investigate or prosecute any alcohol or drug abuse patient.[facility] HospitalIn the event this information is protected by the Federal Confidentiality of Alcohol and Drug Abuse Patient Records regulations: The Federal rules restrict any use of the information to criminally investigate or prosecute any alcohol or drug abuse patient.[facility] HospitalIn the event this information is protected by the Federal Confidentiality of Alcohol and Drug Abuse Patient Records regulations: The Federal rules restrict any use of the information to criminally investigate or prosecute any alcohol or drug abuse patient.[facility] HospitalIn the event this information is protected by the Federal Confidentiality of Alcohol and Drug Abuse Patient Records regulations: The Federal rules restrict any use of the information to criminally investigate or prosecute any alcohol or drug abuse patient.[facility] HospitalIn the event this information is protected by the Federal Confidentiality of Alcohol and Drug Abuse Patient Records regulations: The Federal rules restrict any use of the information to criminally investigate or prosecute any alcohol or drug abuse patient.[facility] HospitalIn the event this information is protected by the Federal Confidentiality of Alcohol and Drug Abuse Patient Records regulations: The Federal rules restrict any use of the information to criminally investigate or prosecute any alcohol or drug abuse patient.[facility] HospitalIn the event this information is protected by the Federal Confidentiality of Alcohol and Drug Abuse Patient Records regulations: The Federal rules restrict any use of the information to criminally investigate or prosecute any alcohol or drug abuse patient.[facility] HospitalIn the event this information is protected by the Federal Confidentiality of Alcohol and Drug Abuse Patient Records regulations: The Federal rules restrict any use of the information to criminally investigate or prosecute any alcohol or drug abuse patient.[facility] HospitalIn the event this information is protected by the Federal Confidentiality of Alcohol and Drug Abuse Patient Records regulations: The Federal rules restrict any use of the information to criminally investigate or prosecute any alcohol or drug abuse patient.[facility] HospitalIn the event this information is protected by the Federal Confidentiality of Alcohol and Drug Abuse Patient Records regulations: The Federal rules restrict any use of the information to criminally investigate or prosecute any alcohol or drug abuse patient.[facility] HospitalIn the event this information is protected by the Federal Confidentiality of Alcohol and Drug Abuse Patient Records regulations: The Federal rules restrict any use of the information to criminally investigate or prosecute any alcohol or drug abuse patient.[facility] HospitalIn the event this information is protected by the Federal Confidentiality of Alcohol and Drug Abuse Patient Records regulations: The Federal rules restrict any use of the information to criminally investigate or prosecute any alcohol or drug abuse patient.[facility] HospitalIn the event this information is protected by the Federal Confidentiality of Alcohol and Drug Abuse Patient Records regulations: The Federal rules restrict any use of the information to criminally investigate or prosecute any alcohol or drug abuse patient.[facility] HospitalIn the event this information is protected by the Federal Confidentiality of Alcohol and Drug Abuse Patient Records regulations: The Federal rules restrict any use of the information to criminally investigate or prosecute any alcohol or drug abuse patient.[facility] HospitalIn the event this information is protected by the Federal Confidentiality of Alcohol and Drug Abuse Patient Records regulations: The Federal rules restrict any use of the information to criminally investigate or prosecute any alcohol or drug abuse patient.[facility] HospitalIn the event this information is protected by the Federal Confidentiality of Alcohol and Drug Abuse Patient Records regulations: The Federal rules restrict any use of the information to criminally investigate or prosecute any alcohol or drug abuse patient.[facility] HospitalIn the event this information is protected by the Federal Confidentiality of Alcohol and Drug Abuse Patient Records regulations: The Federal rules restrict any use of the information to criminally investigate or prosecute any alcohol or drug abuse patient.[facility] HospitalIn the event this information is protected by the Federal Confidentiality of Alcohol and Drug Abuse Patient Records regulations: The Federal rules restrict any use of the information to criminally investigate or prosecute any alcohol or drug abuse patient.[facility] HospitalIn the event this information is protected by the Federal Confidentiality of Alcohol and Drug Abuse Patient Records regulations: The Federal rules restrict any use of the information to criminally investigate or prosecute any alcohol or drug abuse patient.[facility] HospitalIn the event this information is protected by the Federal Confidentiality of Alcohol and Drug Abuse Patient Records regulations: The Federal rules restrict any use of the information to criminally investigate or prosecute any alcohol or drug abuse patient.[facility] HospitalIn the event this information is protected by the Federal Confidentiality of Alcohol and Drug Abuse Patient Records regulations: The Federal rules restrict any use of the information to criminally investigate or prosecute any alcohol or drug abuse patient.[facility] HospitalIn the event this information is protected by the Federal Confidentiality of Alcohol and Drug Abuse Patient Records regulations: The Federal rules restrict any use of the information to criminally investigate or prosecute any alcohol or drug abuse patient.[facility] HospitalIn the event this information is protected by the Federal Confidentiality of Alcohol and Drug Abuse Patient Records regulations: The Federal rules restrict any use of the information to criminally investigate or prosecute any alcohol or drug abuse patient.[facility] HospitalIn the event this information is protected by the Federal Confidentiality of Alcohol and Drug Abuse Patient Records regulations: The Federal rules restrict any use of the information to criminally investigate or prosecute any alcohol or drug abuse patient.[facility] HospitalIn the event this information is protected by the Federal Confidentiality of Alcohol and Drug Abuse Patient Records regulations: The Federal rules restrict any use of the information to criminally investigate or prosecute any alcohol or drug abuse patient.[facility] HospitalIn the event this information is protected by the Federal Confidentiality of Alcohol and Drug Abuse Patient Records regulations: The Federal rules restrict any use of the information to criminally investigate or prosecute any alcohol or drug abuse patient.[facility] HospitalIn the event this information is protected by the Federal Confidentiality of Alcohol and Drug Abuse Patient Records regulations: The Federal rules restrict any use of the information to criminally investigate or prosecute any alcohol or drug abuse patient.[facility] HospitalIn the event this information is protected by the Federal Confidentiality of Alcohol and Drug Abuse Patient Records regulations: The Federal rules restrict any use of the information to criminally investigate or prosecute any alcohol or drug abuse patient.[facility] HospitalIn the event this information is protected by the Federal Confidentiality of Alcohol and Drug Abuse Patient Records regulations: The Federal rules restrict any use of the information to criminally investigate or prosecute any alcohol or drug abuse patient.[facility] HospitalIn the event this information is protected by the Federal Confidentiality of Alcohol and Drug Abuse Patient Records regulations: The Federal rules restrict any use of the information to criminally investigate or prosecute any alcohol or drug abuse patient.[facility] HospitalIn the event this information is protected by the Federal Confidentiality of Alcohol and Drug Abuse Patient Records regulations: The Federal rules restrict any use of the information to criminally investigate or prosecute any alcohol or drug abuse patient.[facility] HospitalIn the event this information is protected by the Federal Confidentiality of Alcohol and Drug Abuse Patient Records regulations: The Federal rules restrict any use of the information to criminally investigate or prosecute any alcohol or drug abuse patient.[facility] HospitalIn the event this information is protected by the Federal Confidentiality of Alcohol and Drug Abuse Patient Records regulations: The Federal rules restrict any use of the information to criminally investigate or prosecute any alcohol or drug abuse patient.[facility] HospitalIn the event this information is protected by the Federal Confidentiality of Alcohol and Drug Abuse Patient Records regulations: The Federal rules restrict any use of the information to criminally investigate or prosecute any alcohol or drug abuse patient.[facility] HospitalIn the event this information is protected by the Federal Confidentiality of Alcohol and Drug Abuse Patient Records regulations: The Federal rules restrict any use of the information to criminally investigate or prosecute any alcohol or drug abuse patient.[facility] HospitalIn the event this information is protected by the Federal Confidentiality of Alcohol and Drug Abuse Patient Records regulations: The Federal rules restrict any use of the information to criminally investigate or prosecute any alcohol or drug abuse patient.[facility] Reason for Visit (unrecogniz ed section and content) Reason Comments Appointment Reason Comments Nurse Visit Reason Comments Patient Update Reason Comments Patient Question Reason Comments Follow Up Reason Comments Refill Request Reason Comments Preparations For Procedures I tried call ing patient to confirm premed pickup and instructions. No answer. I left a message with a call back number Reason Comments Radiology CT Specialty Diagnoses / Procedures Referred By Rose Marie t Referred To Contact CT IMAGING Diagnoses Small bowel obstruction (HCC) Procedures CT ABD/PEL WO IVCON CT ABD & PEL[place] [address] [place] [address] Ct Imaging Referral ID Status Reason Start Date Expiration Date V isits Requested Visits Authorized [id number] Closed Auto-Generate d Referral 03/05/2022 03/04/2023 1 1 Reason Onset Date Comments Refill Request 03/18/2022 Reason Onset Date Comments Refill Request 03/31/2022 Reason Comments Home Care confirmation call Reason Comments Follow Up Phone Call Post Discharge F/U attempt made. No answer. Reason Comments Orders Reason Comments Follow Up Phone Call All Clear Reason Comments PT plan of care Reason Comments Home Health orders Reason Comments Patient Update Orders Reason Onset Date Comments Hospital F/U Immunizations 07/30/2022 Flu vaccination Reason Comments Results Reason Comments [facility] OT POC Reason Comments Order Request Reason Comments Continued Social Work order Reason Comments Hospital Follow Up Reason Onset Date Comments Transition Of Care 08/17/2022 [facility] 08/10/22-1 Reason Comments Physical Therapy orders Reason Comments Forms Reason Comments Physical Therapy Update Reason Comments New Patient Slow transit dysmoti lity Reason Comments Orders [facility] Home health Reason Comments Med Change Request Reason Comments [facility], nursing, verbal order Reason Comments Halfway Updated Reason Comments Patient Update Patient Question Reason Comments Approve for POC Reason Comments [facility] SN POC Reason Onset Date Comments Refill Request 02/17/2023 Reason Comments Delay/resumption of care Reason Onset Date Comments Transition Of Care 03/08/2023 TCM follow up Reason Comments [facility] PT POC Reason Comments Inpatient at [facility] Reason Comments Follow Up Phone Call Post Discharge F/U - attempt made. No answer. Reason Comments Home Health Nursing Call Reason Onset Date Comments Transition Of Care 04/20/2023 TCM follow-up Reason Onset Date Comments Transition Of Care 05/04/2023 TCM follow-up Reason Comments Halfway Update Reason Comments Hospital F/U Reason Comments Patient Update Results Reason Comments Home Health Medication Order Reason Comments Established Patient Constipation Reason Comments 6 Month Exam Reason Comments Hospital Admission Reason Comments Orders recert patient for home health Reason Comments Hospital F/U Reason Onset Date Comments Transition Of Care 08/18/2023 [facility] 08/09/23-1 Reason Onset Date Comments Refill Request 09/06/2023 Care Teams (unrecognized sec tion and content) Research Spec Relationship Specialty Start Date End Date Lyndon Estes MD [address] [place] [address] PCP - General Family Practice 12/11/18 Research Spec Relationship Specialty Start Date End Date Lyndon Estes MD [address] [place] [address] PCP - General Family Practice 12/11/18 Research Spec Relationship Specialty Start Date End Date Lyndon Estes MD [address] [place] [address] PCP - General Family Practice 12/11/18 Research Spec Relationship Specialty Start Date End Date Lyndon Estes MD [address] [place] [address] PCP - General Family Practice 12/11/18 Research Spec Relationship Specialty Start Date End Date Lyndon Estes MD [address] [place] [address] PCP - General Family Practice 12/11/18 Research Spec Relationship Specialty Start Date End Date Lyndon Estes MD [address] [place] [address] PCP - General Family Practice 12/11/18 Research Spec Relationship Specialty Start Date End Date Lyndon Estes MD [address] [place] [address] PCP - General Family Practice 12/11/18 Research Spec Relationship Specialty Start Date End Date Lyndon Estes MD [address] [place] [address] PCP - General Family Practice 12/11/18 Research Spec Relationship Specialty Start Date End Date Lyndon Estes MD [address] [place] [address] PCP - General Family Practice 12/11/18 Research Spec Relationship Specialty Start Date End Date Lyndon Estes MD [address] [place] [address] PCP - General Family Practice 12/11/18 Francisca Jensen MD [address] [place] [address] Referring General Surgery 04/20/22 Francisca Jensen MD [address] [place] [address] Home Care Physician General Surgery 04/20/22 Research Spec Relationship Specialty Start Date End Date Lyndon Estes MD [address] [place] [address] PCP - General Family Practice 12/11/18 Francisca Jensen MD [address] [place] [address] Referring General Surgery 04/20/22 Francisca Jensen MD [address] [place] [address] Home Care Physician General Surgery 04/20/22 Research Spec Relationship Specialty Start Date End Date Lyndon Estes MD [address] [place] [address] PCP - General Family Practice 12/11/18 Francisca Jensen MD [address] [place] [address] Referring General Surgery 04/20/22 Francisca Jensen MD [address] [place] [address] Home Care Physician General Surgery 04/20/22 Research Spec Relationship Specialty Start Date End Date Lyndon Estes MD [address] [place] [address] PCP - General Family Practice 12/11/18 Francisca Jensen MD [address] [place] [address] Referring General Surgery 04/20/22 Francisca Jensen MD [address] [place] [address] Home Care Physician General Surgery 04/20/22 Research Spec Relationship Specialty Start Date End Date Lyndon Estes MD [address] [place] [address] PCP - General Family Practice 12/11/18 Francisca Jensen MD [address] [place] [address] Referring General Surgery 04/20/22 Francisca Jensen MD [address] [place] [address] Home Care Physician General Surgery 04/20/22 Research Spec Relationship Specialty Start Date End Date Lyndon Estes MD [address] [place] [address] PCP - General Family Practice 12/11/18 Francisca Jensen MD [address] [place] [address] Referring General Surgery 04/20/22 Franicsca Jensen MD [address] [place] [address] Home Care Physician General Surgery 04/20/22 Research Spec Relationship Specialty Start Date End Date Lyndon Estes MD [address] [place] [address] PCP - General Family Practice 12/11/18 Francisca Jensen MD [address] [place] [address] Referring General Surgery 04/20/22 Francisca Jensen MD [address] [place] [address] Home Care Provider General Surgery 04/20/22 Research Spec Relationship Specialty Start Date End Date Lyndon Estes MD [facility] [place] [address] PCP - General Family Practice 12/11/18 Francisca Jensen MD [address] [place] [address] Referring General Surgery 04/20/22 Francisca Jensen MD [address] [place] [address] Home Care Provider General Surgery 04/20/22 Research Spec Relationship Specialty Start Date End Date Lyndon Estes MD [address] [place] [address] PCP - General [facility] Practice 12/11/18 Francisca Jensen MD [address] [place] [address] Referring General Surgery 04/20/22 Francisca Jensen MD [address] [place] [address] Home Care Provider General Surgery 04/20/22 Research Spec Relationship Specialty Start Date End Date Lyndon Estes MD [address] [place] [address] PCP - General Family Practice 12/11/18 Francisca Jensen MD [address] [place] [address] Referring General Surgery 04/20/22 Francisca Jensen MD [address] [place] [address] Home Care Provider General Surgery 04/20/22 Research Spec Relationship Specialty Start Date End Date Lyndon Estes MD [address] [place] [address] PCP - General Family Medicine 12/11/18 Francisca Jensen MD [address] [place] [address] Referring General Surgery 04/20/22 Francisca Jensen MD [address] [place] [address] Home Care Provider General Surgery 04/20/22 Research Spec Relationship Specialty Start Date End Date Lyndon Estes MD [address] [place] [address] PCP - General Family Medicine 12/11/18 Francisca Jensen MD [address] [place] [address] Referring General Surgery 04/20/22 Francisca Jensen MD [address] [place] [address] Home Care Provider General Surgery 04/20/22 Research Spec Relationship Specialty Start Date End Date Lyndon Estes MD [address] [place] [address] PCP - General Family Medicine 12/11/18 Francisca Jensen MD [address] [place] [address] Referring General Surgery 04/20/22 Francisca Jensen MD [address] [place] [address] Home Care Provider General Surgery 04/20/22 Research Spec Relationship Specialty Start Date End Date Lyndon Estes MD [address] [place] [address] PCP - General Family Medicine 12/11/18 Francisca Jensen MD [address] [place] [address] Referring General Surgery 04/20/22 Francisca Jensen MD [address] [place] [address] Home Care Provider General Surgery 04/20/22 Research Spec Relationship Specialty Start Date End Date Lyndon Estes MD [address] [place] [address] PCP - General Family Medicine 12/11/18 Francisca Jensen MD [address] [place] [address] Referring General Surgery 04/20/22 Francisca Jensen MD [address] [place] [address] Home Care Provider General Surgery 04/20/22 Research Spec Relationship Specialty Start Date End Date Lyndon Estes MD [address] [place] [address] PCP - General Family Medicine 12/11/18 Francisca Jensen MD [address] [place] [address] Referring General Surgery 04/20/22 Francisca Jensen MD [address] [place] [address] Home Care Provider General Surgery 04/20/22 Research Spec Relationship Specialty Start Date End Date Lyndon Estes MD [address] [place] [address] PCP - General Family Medicine 12/11/18 Francisca Jensen MD [address] [place] [address] Referring General Surgery 04/20/22 Francisca Jensen MD [address] [place] [address] Home Care Provider General Surgery 04/20/22 Research Spec Relationship Specialty Start Date End Date Lyndon Estes MD [address] [place] [address] PCP - General Family Medicine 12/11/18 Francisca Jensen MD [address] [place] [address] Referring General Surgery 04/20/22 Francisca Jensen MD [address] [place] [address] Home Care Provider General Surgery 04/20/22 Research Spec Relationship Specialty Start Date End Date Lyndon Estes MD [address] [place] [address] PCP - General Family Medicine 12/11/18 Francisca Jensen MD [address] [place] [address] Referring General Surgery 04/20/22 Francisca Jensen MD [address] [place] [address] Home Care Provider General Surgery 04/20/22 Research Spec Relationship Specialty Start Date End Date Lyndon Estes MD [address] [place] [address] PCP - General Family Medicine 12/11/18 Francisca Jensen MD [address] [place] [address] Referring General Surgery 04/20/22 Francisca Jensen MD [address] [place] [address] Home Care Provider General Surgery 04/20/22 Katiana Hoyos, [employer] 03/01/23 03/30/23 Research Spec Relationship Specialty Start Date End Date Lyndon Estes MD [address] [place] [address] PCP - General Family Medicine 12/11/18 Francisca Jensen MD [address] [place] [address] Referring General Surgery 04/20/22 Francisca Jensen MD [address] [place] [address] Home Care Provider General Surgery 04/20/22 Katiana Hoyos, pizzamaker Medical Esthetician 03/01/23 03/30/23 Research Spec Relationship Specialty Start Date End Date Lyndon Estes MD [address] [place] [address] PCP - General Family Medicine 12/11/18 Francisca Jensen MD [address] [place] [address] Referring General Surgery 04/20/22 Francisca Jensen MD [address] [place] [address] Home Care Provider General Surgery 04/20/22 Giselle Reese, pizzamaker Medical Esthetician 04/06/23 05/04/23 Research Spec Relationship Specialty Start Date End Date Lyndon Estes MD [address] [place], [place] [id number] PCP - General Family Medicine 12/11/18 Francisca Jensen MD [address] [place] [address] Referring General Surgery 04/20/22 Francisca Jensen MD [address] [place] [address] Home Care Provider General Surgery 04/20/22 Giselle Reese, pizzamaker Medical Esthetician 04/06/23 05/04/23 Research Spec Relationship Specialty Start Date End Date Lyndon Estes MD [address] [place], [place] [id number] PCP - General Family Medicine 12/11/18 Francisca Jensen MD [address] [place] [address] Referring General Surgery 04/20/22 Francisca Jensen MD [address] [place] [address] Home Care Provider General Surgery 04/20/22 Giselle Reese, pizzamaker Medical Esthetician 04/06/23 05/04/23 Research Spec Relationship Specialty Start Date End Date Lyndon Estes MD [address] [place], [place] [id number] PCP - General Family Medicine 12/11/18 Francisca Jensen MD [address] [place], [place] [id number] [phone] Referring General Surgery 04/20/22 Francisca Jensen MD [address] [place] [address] Home Care Provider General Surgery 04/20/22 Research Spec Relationship Specialty Start Date End Date Lyndon Estes MD [address] [place] [address] PCP - General Family Medicine 12/11/18 Francisca Jensen MD [address] [place] [address] Referring General Surgery 04/20/22 Francisca Jensen MD [address] [place] [address] Home Care Provider General Surgery 04/20/22 Research Spec Relationship Specialty Start Date End Date Lyndon Estes MD [address] [place] [address] PCP - General Family Medicine 12/11/18 Francisca Jensen MD [address] [place] [address] Referring General Surgery 04/20/22 Francisca Jensen MD [address] [place] [address] Home Care Provider General Surgery 04/20/22 Research Spec Relationship Specialty Start Date End Date Lyndon Estes MD [address] [place], [place] [id number] PCP - General Family Medicine 12/11/18 Francisca Jensen MD [address] [place], [place] [id number] [phone] Referring General Surgery 04/20/22 Francisca Jensen MD [address] [place], [place] [id number] [phone] Home Care Provider General Surgery 04/20/22 Research Spec Relationship Specialty Start Date End Date yLndon Estes MD [address] [place] [address] PCP - General Family Medicine 12/11/18 Francisca Jensen MD [address] [place] [address] Referring General Surgery 04/20/22 Francisca Jensen MD [address] [place] [address] Home Care Provider General Surgery 04/20/22 Research Spec Relationship Specialty Start Date End Date Lyndon Estes MD [address] [place] [address] PCP - General Family Medicine 12/11/18 Francisca Jensen MD [address] [place] [address] Referring General Surgery 04/20/22 Francisca Jensen MD [address] [place] [address] Home Care Provider General Surgery 04/20/22 Research Spec Relationship Specialty Start Date End Date Lyndon Estes MD [address] [place], [place] [address] PCP - General Family Medicine 12/11/18 Francisca Jensen MD [address] [place], [place] [id number] Referring General Surgery 04/20/22 Francisca Jensen MD [address] [place], [place] [id number] Home Care Provider General Surgery 04/20/22 Giselle Reese, pizzamaker Medical Esthetician 04/06/23 05/04/23 Research Spec Relationship Specialty Start Date End Date Lyndon Estes MD [address] [place] [address] PCP - General Family Medicine 12/11/18 Francisca Jensen MD [address] [place] [address] Referring General Surgery 04/20/22 Francisca Jensen MD [address] [place], [place] [id number] [phone] Home Care Provider General Surgery 04/20/22 Research Spec Relationship Specialty Start Date End Date Lyndon Estes MD [address] [place], [place] [id number] PCP - General Family Medicine 12/11/18 Francisca Jensen MD [address] [place], [place] [id number] [phone] Referring General Surgery 04/20/22 Francisca Jensen MD [address] [place] [address] Home Care Provider General Surgery 04/20/22 Research Spec Relationship Specialty Start Date End Date Lyndon Estes MD [address] [place], [place] [id number] PCP - General Family Medicine 12/11/18 Francisca Jensen MD [address] [place] [address] Referring General Surgery 04/20/22 Francisca Jensen MD [address] [place] [address] Home Care Provider General Surgery 04/20/22 Research Spec Relationship Specialty Start Date End Date Lyndon Estes MD [address] [place], [place] [address] PCP - General Family Medicine 12/11/18 Francisca Jensen MD [address] [place] [address] Referring General Surgery 04/20/22 Francisca Jensen MD [address] [place] [address] Home Care Provider General Surgery 04/20/22 FOR RECORDS PERTAINING TO PATIENTS WHO ARE OR HAVE BEEN ENROLLED IN A CHEMICAL DEPENDENCY/SUBSTANCEABUSE PROGRAM, SOME INFORMATION MAY BE OMITTED. This clinical summary was aggregated from multiple sources. Caution should be exercised in using it in the provision of clinical care. This summary normalizes information from multiple sources, and as a consequence, information in this document may materially change the coding, format and clinical context of patient data. In addition, data may be omitted in some cases. CLINICAL DECISIONS SHOULD BE BASED ON THE PRIMARY CLINICAL RECORDS. [facility] [employer] [facility]. provides no warranty or guarantee of the accuracy or completeness of information in this document.
[2023-09-20 19:48] LABS: Absolute Lymphocyte Count 1.14 X10^3/uL (0.83-4.51); Absolute Neutrophil Count 15.6 X10^3/uL (2.0-7.7); Basophil# 0.03 X10^3/uL; Basophil% 0.2 % (0-1); Eosinophil# 0.07 X10^3/uL; Eosinophils% 0.4 % (0-5); Hematocrit 36.8 % (40-54); Hemoglobin 12.3 g/dL (13.0-16.5); Lymphocyte # 1.14 X10^3/ul (0.83-4.51); Lymphocyte % 5.9 % (19-41); Mean Corp Hgb Conc 33.4 g/dL (32-36); Mean Corpuscular Hgb 28.3 pg (27.0-32.0); Mean Corpuscular Volume 84.6 fL (80-94); Mean Platelet Vol. 9.7 fl (6.2-12.0); Monocyte# 2.48 X10^3/uL; Monocyte% 12.8 % (0-10); NRBC Flagged by Analyzer 0 % (0-5); Neutrophil # 15.57 X10^3/uL (2.7-7.7); Neutrophil % 80.2 % (47-70); POSITIVE DIFFERENTIAL YES; Platelet Count 366 K/mm3 (150-450); RBC Distribution Width CV 12.9 % (11.6-14.6); RBC Distribution Width SD 39.8 fl (35.1-43.9); Red Blood Count 4.35 M/mm3 (4.6-6.2); White Blood Count 19.4 K/mm3 (4.4-11.0)
[2023-09-20 19:49] LABS: Mucous, Urine 0 SEEN /hpf (<or=2+); Squamous Epithelial Cells - UA 0 SEEN /hpf (0-5)
--- NOTE | 2023-09-20 19:50 | RAD_ITS ---
EXAM: XR CHEST, 1 VIEW CLINICAL INDICATION: fever TECHNIQUE: Frontal view of the chest. COMPARISON: Acute abdominal series, 09/19/2022 FINDINGS: LUNGS AND PLEURAL SPACES: No significant abnormality. No consolidation or edema. No pneumothorax. No effusion. HEART: No significant abnormality. Cardiac silhouette not enlarged. MEDIASTINUM: Central airways and mediastinal contour are unremarkable. BONES/JOINTS: No significant abnormality. SOFT TISSUES: No significant abnormality. TUBES, LINES AND DEVICES: A ventriculoperitoneal shunt catheter traverses the right chest wall. UPPER ABDOMEN: Mild gaseous distention of bowel in the upper abdomen partially visualized. No discrete evidence of subdiaphragmatic air. RAD/Chest 1 View (Portable) IMPRESSION: 1. No acute pathology in the chest. 2. Mild gaseous distention of bowel in the upper abdomen partially visualized. No discrete evidence of subdiaphragmatic air. Electronically Signed: Conor Carrasco DO at 20:06 EST ,
[2023-09-20 19:51] LABS: Color, Urine Yellow (Yellow); Glucose, Dipstick Normal (Normal); Ketone-Dipstick 15 mg/dl (Negative); Leukocyte Esterase-Dipstick 500 /ul (Negative); Nitrite-Dipstick Positive (Negative); Occult Blood-Urine 50 /ul (Negative); Protein-Dipstick 100 mg/dl (Negative); Urine Bilirubin Dipstick Negative (Negative); Urine Clarity Cloudy (Clear); Urine Urobilinogen Normal (Normal)
[2023-09-20 19:54] LABS: Bacteria 2+ /hpf (None Seen); Red Blood Cells-Urine 10-25 SEEN /hpf (0-5); White Blood Cells 25-50 SEEN /hpf (0-5)
[2023-09-20 19:56] LABS: International Normalized Ratio 1.1; Prothrombin Time (Protime)PT. 14.5 SECONDS (11.7-14.9)
[2023-09-20] MEDS: 0.9% Normal Saline (500mL Bag) 500 ML 999 ML IV (19:57)
[2023-09-20 19:58] LABS: Differential Indicated SCAN CRITERIA MET
[2023-09-20 20:01] LABS: Partial Thromboplast Time 32.9 Seconds (24.1-36.2)
[2023-09-20 20:05] LABS: ALB/GLOB Ratio 0.8 RATIO (0.9-2.4); AST(SGOT) 11 U/L (15-37); Alanine Aminotransfer ALT/SGPT 16 U/L (16-61); Alkaline Phosphatase 62 U/L (45-117); Anion Gap 7 (5-15); BUN 12 mg/dL (7-18); BUN/Creat Ratio 17.6 RATIO (10-20); Calcium,Total 8.3 mg/dL (8.5-10.1); Chloride 90 mmol/L (98-107); Creatinine, Serum 0.68 mg/dL (0.70-1.30); EST Glomerular Filtration Rate 128 mL/min (>60); Est Glom Filt Rate - Afr Amer 155 mL/min (>60); Glucose 120 mg/dL (74-106); Potassium 3.6 mmol/L (3.5-5.1); Sodium Level 124 mmol/L (136-145)
[2023-09-20 20:10] LABS: Lactic Acid 0.9 mmol/L (0.4-1.9)
[2023-09-20 20:12] LABS: Differential Comment SCANNED
[2023-09-20] MEDS: 0.9% Normal Saline (1000mL) 1,000 ML 150 ML IV (20:57)
[2023-09-20] MEDS: Ceftriaxone 1 GM/50 ML BAG IV (20:58)
--- NOTE | 2023-09-20 21:41 | PCM.HP.STD ---
HPI - General General Date of Admission: 09/20/23 Date of Service: 09/20/23 Chief Complaint: Fever and Decreased UOP. HPI Narrative JIAN FUENTES, is a 57 M past medical history of normal pressure hydrocephalus since ; status post ELECTION WATCHER shunt, seizure disorder, history of urinary retention with chronic indwelling Bowman catheter with frequent UTIs, history of urethral stricture; status post release, history of ileus, gastroparesis and chronic intestinal pseudoobstruction; on Linzess and as needed Reglan, history of chronic hyponatremia, BPH, history of bladder diverticulum, history of bladder stones and recently diagnosed COVID-19 approximately 1 week ago who presents to [facility] ER complaining of fever and decreased urinary output. Mr. Fuentes is a suboptimal historian at this time so augmented history was gathered from his older sister who is his distribution dispatcher. She reported he had been experiencing lots of sediment in his urine with intermittent urine leaking around his Bowman catheter for approximately 1 week with his Bowman just changed earlier today. Then he spiked a temp up to 101.7 ?F that coincided with a decrease amount of urine of only approximately 200 cc over the past 5 hours. He admits to a mild pain in his abdomen that is aching in nature cannot further elaborate. She also reports that he has a chronic congested cough and chronic constipation with no BM in the past 2 days but she denies acute shortness of breath or other significant symptoms at this time. In the ER his urinalysis was positive for acute cystitis related to chronic Bowman for which she was started on IV Rocephin with leukocytosis of 19.4 present on admission complicated by subacute COVID-19 with positive test this admission and hyponatremia of 124 mmol/L present on admission in the ER. He did not meet criteria for sepsis and did not appear to be acutely ill enough to require ICU admission at this time. He was then admitted to the PCU for ongoing care for a stay is expected to be greater than 48 hours [facility] Medical History Bladder diverticulum Bladder stones BPH (benign prostatic hyperplasia) Catheter-associated urinary tract infection Chronic hyponatremia Chronic indwelling Bowman catheter Chronic indwelling Bowman catheter Chronic intestinal pseudo-obstruction Gastroparesis History of urinary retention Hydrocephalus Hydrocephalus Hypertension Hyponatremia Hyponatremia Ileus Inguinal hernia Normal pressure hydrocephalus Seizures Home Medications baclofen 5 mg tablet 5 mg PO TID MUSCLE SPASMS 07/21/22 [History Last Taken 02/20/23] linaclotide 290 mcg capsule (Linzess) 290 mcg PO DAILY IRRITABLE BOWELS 08/09/23 [History Last Taken Unknown] omeprazole 20 mg capsule,delayed release 20 mg PO DAILY ACID REFLUX 08/09/23 [History Last Taken Unknown] prucalopride 2 mg tablet (Motegrity) 2 mg PO DAILY CHRONIC CONSTIPATION 08/09/23 [History Last Taken Unknown] tamsulosin 0.4 mg capsule 0.4 mg PO 1730 PROSTATE 08/09/23 [History Last Taken Unknown] metoclopramide HCl 5 mg tablet (Reglan) 5 mg PO Q6H PRN nausea and vomiting 09/20/23 [History Last Taken Unknown] Allergy/AdvReac Type Severity Reaction Status Date / Time Iodinated Contrast Media Allergy Anaphylaxis Verified 09/20/23 18:51 [Iodinated Contrast Media - IV Dye] nitrofurantoin AdvReac Upset Verified 09/20/23 18:51 Stomach Family History Father Heart disease Kidney stones Prostate disease Brother Kidney stones Other Cancer Peptic ulcer disease Surgical History S/P release of urethral stricture S/P ELECTION WATCHER shunt ELECTION WATCHER (ventriculoperitoneal) shunt status Social History household members: family Smoking Status: Never smoker alcohol intake: never substance use type: does not use ROS ROS Narrative Review of systems cannot be fully completed due to patient's encephalopathy. Review of Systems ROS Unobtainable: due to encephalopathy Constitutional Constitutional: Reports fatigue Genitourinary Genitourinary: Reports burning urination, difficulty urinating and dysuria Musculoskeletal Musculoskeletal: Reports myalgias Neurologic Neurologic: Reports confusion Psychiatric Psychiatric: Reports depression Vital Signs Vital Signs Vital Signs: 09/20/23 18:49 09/20/23 19:31 09/20/23 19:47 Temperature 97.8 F Temperature Source Temporal Pulse Rate 105 H 96 Respiratory Rate 18 16 Blood Pressure 137/94 H 139/93 H Blood Pressure Mean 108 108 Pulse Ox 95 95 95 Oxygen Delivery Method Room Air Room Air Room Air 09/20/23 19:47 09/20/23 20:45 09/20/23 21:02 Temperature 98.9 F 98.6 F Temperature Source Oral Oral Pulse Rate 97 95 92 Respiratory Rate 15 16 15 Blood Pressure 136/93 H 113/66 116/74 Blood Pressure Mean 107 81 88 Pulse Ox 96 95 95 Oxygen Delivery Method Room Air Room Air Room Air Physical Exam Const alert, no apparent distress and average body habitus General Appearance: cooperative Orientation / Consciousness: confused HEENT normocephalic, head/scalp atraumatic, hearing grossly normal bilaterally and moist oral mucous membranes Eyes PERRL, EOMs intact bilaterally and conjunctivae normal Neck no lymphadenopathy Resp normal respiratory effort, no retractions, no use of accessory muscles and clear to auscultation bilaterally Cardio regular rate and regular rhythm GI normal to inspection, nondistended, normoactive bowel sounds, soft to palpation, non-tender and non-distended GI Narrative: Patient has a ELECTION WATCHER shunt in place in the right side of his abdomen. Extremity Extremity Narrative: Patient is atrophied foot muscles bilaterally; right greater than left. Skin Skin Narrative: Negative for rash. Neuro CN's II-XII intact bilaterally and moves all extremities Sensorium / Orientation: awake, alert, oriented to person and oriented to place Speech: speech normal Psych Mood & Affect: depressed Results Medical Records Data Attestation: I reviewed the patient's medical records Lab / Micro Data Attestation: I reviewed the patient's lab results. 09/21/23 04:36 09/21/23 04:36 Labs: Laboratory Results - last 24 hr 09/20/23 19:35: WBC 19.4 H, RBC 4.35 L, Hgb 12.3 L, Hct 36.8 L, MCV 84.6, MCH 28.3, MCHC 33.4, RDW Std Deviation 39.8, RDW Coeff of Frieda 12.9, Plt Count 366, MPV 9.7, Immature Gran % (Auto) 0.500, Neut % (Auto) 80.2 H, Lymph % (Auto) 5.9 L, [place] % (Auto) 12.8 H, Eos % (Auto) 0.4, Baso % (Auto) 0.2, Absolute Neuts (auto) 15.6 H, Absolute Lymphs (auto) 1.14, Nucleated RBC % 0, Differential Comment SCANNED, Diff Path Review March foll, PT 14.5, INR 1.1, APTT 32.9, Sodium 124 L, Potassium 3.6, Chloride 90 L, Carbon Dioxide 27.0, Anion Gap 7, BUN 12, Creatinine 0.68 L, Est GFR (MDRD) Af Amer 155, Est GFR (MDRD) Non-Af 128, BUN/Creatinine Ratio 17.6, Glucose 120 H, Lactic Acid 0.9, Calcium 8.3 L, Total Bilirubin 0.50, AST 11 L, ALT 16, Alkaline Phosphatase 62, Total Protein 7.0, Albumin 3.0 L, Globulin 4.0, Albumin/Globulin Ratio 0.8 L 09/20/23 19:45: Urine Color Yellow, Urine Clarity Cloudy, Urine pH 7.0, Ur Specific [place] 1.010, Urine Protein 100 H, Urine Glucose (UA) Normal, Urine Ketones 15 H, Urine Occult Blood 50 H, Urine Nitrite Positive H, Urine Bilirubin Negative, Urine Urobilinogen Normal, Ur Leukocyte Esterase 500 H, Urine RBC 10-25 SEEN, Urine WBC 25-50 SEEN, Ur Squamous Epith Cells 0 SEEN, Urine Bacteria 2+, Urine Mucus 0 SEEN Micro: Microbiology 09/20/23 19:29 Nasal Secretion SARS-CoV-2 Antigen (Rapid) - Final SARS-CoV-2 (COVID 19) Rhythm Strip Rhythm Strip: Sinus Rhythm Rate: 95 Ectopy: None Radiology Impression Chest X-Ray 09/20/23 19:50 IMPRESSION: 1. No acute pathology in the chest. 2. Mild gaseous distention of bowel in the upper abdomen partially visualized. No discrete evidence of subdiaphragmatic air. Electronically Signed: Conor Carrasco, DO at 20:06 EST , Assessment & Plan Assessment/Plan (1) Acute hyponatremia: (2) COVID-19: (3) Complicated UTI (urinary tract infection): (4) Chronic indwelling Bowman catheter: (5) Leukocytosis: PLAN: Plan 1. Acute cystitis in the setting of chronic indwelling Bowman causing infection with leukocytosis of 19.4 present on admission -admit to general medical floor. Continue IV Rocephin and await culture and sensitivity data to narrow antibiotic spectrum. Patient's Bowman was changed within the last 24 hours. Give Tylenol as needed for pain or fever. 2. Subacute COVID-19 complicating #1 - Patient has positive test this admission with resolving symptoms. Placed on droplet precautions treat supportively with vitamin D3, vitamin C and zinc. 3. Hyponatremia of 124 mmol/L present on admission compounding #1 and #2- Give normal saline IV fluids and recheck BMP in the a.m. to ensure improvement. 4. History of normal pressure hydrocephalus since ; status post ELECTION WATCHER shunt with seizure disorder - Continue home medications as previous. 5. History of BPH, bladder diverticulum and bladder stones - Stable. 6. DVT prophylaxis - Lovenox 40 mg subcu daily. Total time: Approximately 55 minutes Charges/Coding Visit Charges Inpatient E&M: 94469 Init Hosp L2
--- OUTSIDE RECORDS SUMMARY | 2023-09-20 22:10 | XMS RPT_ITS | CCD ---
Author Name Unknown Address [address] [place] [address] Organization [facility] Care Team Providers Care Alarm Adjuster Name Role Phone Tommy DONOVAN, Lyndon Alexis Primary Care Provider Mikey DONOVAN, Traceyoxi Unavailable Mikey DONOVAN, Traceyoxi Unavailable Dr. Von Sanchez Attending Steffi vailable Laura, Dr. Von Dunbar Admitting Steffi vailable Patient, Unavailable Referring Unavailable Lyndon Estes MD Primary Care Provider Mikey DONOVAN, Traceyoxi Unavailable Mikey DONOVAN, Traceyoxi Unavailable Landy TREJO, Katiana Unavailable Unavailable Adam TREJO, Giselle Unavailable Unavailable MARCELO PRINCE Attending Unavail able LYNDON ESTES Primary Care Unavailable Nayely Nazario Attending Unavailable LYNDON ESTES Primary Care Unavailable Millie Kaur Referring Unavailable LYNDON ESTES Primary Care Unavailable TERESITA REESE Attending Unavailable JIAN UGALDE Referring Unavaila ble LYNDON ESTES Primary Care Unavailable Qader, Hemn Admitting Unavailable JUDAH CORRAL Attending Unavailable [...] Translations: [CONTRAST DYE] Drug Allergy 0 Anaphylaxis [facility] Work Phone: (20 sources) Nitrofurantoin; Translations: [NITROFURANTOIN MACROCRYSTALLINE ] Drug Allergy 0 GI Upset [facility] Work Phone: (20 sources) Nitrofurantoin; Translations: [NITROFURANTOIN] Drug Allergy 1 GI Upset [facility] (20 sources) Phenytoin; Translations: [PHENYTOIN] Drug Allergy 6 [facility] Work Phone: (20 sources) Fd And C Blue No.1; Translations: [FD AND C BLUE NO.1] Propensity to adverse reactions 6 [facility] Work Phone: (1 source) IODINATED CONTRAST MEDIA; Translations: [IODINATED CONTRAST MEDIA] Propensity to adverse reactions to drug (disorder) 1 [facility] Rep[facility] Medications Current Medications Medication Drug Class(es) [...] situ; Translations: [Presence of urogenital implants] Chronic Genitourinary symptoms and ill-defined conditions (20 sources) Retention of urine; Translations: [Retention of urine, unspecified] Onset: 04-06-2021 04-06-2021 Episodic Hyperplasia of prostate (20 sources) Benign prostatic [...] 02-02-2008 Chronic Other aftercare (1 source) Other fdc (current) drug therapy; Translations: [Other terminal gauger (current) drug therapy] Onset: 12-15-2022 Episodic Other [...] Translations: [Other constipation] Episodic Other gastrointestinal disorders (1 source) Other [...] Translations: [Bowman catheter problem, initial encounter ([facility])] Onset: 05-20-2023 Episodic Fluid and electrolyte disorders (20 sources) Hyponatremia; Translations: [Hypo-osmolality and hyponatremia] Onset: 05-19-2023 Episodic Intestinal obstruction without hernia (20 sources) [...] [Gastroparesis] Onset: 05-19-2023 Episodic Other gastrointestinal disorders (5 sources) Personal [...] Date Time Vital Sign Value Performing Clinician Faci lity 08-03-2023 15:04-0400 Diastolic blood pressure 88 mm[Hg] Lyndon Estes MD Work Phone: [facility] 08-03-2023 15:04-0400 Heart rate 84 /min Lyndon Estes MD Work Phone: [facility] 08-03-2023 15:04-0400 SaO2% (BldA) [Mass fraction] 97 % Lyndon Estes MD Work Phone: [facility] 08-03-2023 15:04-0400 Systolic blood pressure 130 mm[Hg] Lyndon Estes MD Work Phone: [facility] 06-13-2023 15:30-0400 Body height 160 cm Liz Lintonbons PA-C Work Phone: [facility] 06-13-2023 15:30-0400 Body temperature 97 [degF] Liz Lintonbons PA-C Work Phone: [facility] 06-13-2023 15:30-0400 Body weight 56.25 kg Liz Royerbons PA-C Work Phone: [facility] 06-13-2023 15:30-0400 Diastolic blood pressure 89 mm[Hg] Liz Lintonbons PA-C Work Phone: [facility] 06-13-2023 15:30-0400 Heart rate 80 /min Liz Bells PA-C Work Phone: [facility] 06-13-2023 15:30-0400 SaO2% (BldA) [Mass fraction] 98 % Liz Villarreal PA-C Work Phone: [facility] 06-13-2023 15:30-0400 Systolic blood pressure 125 mm[Hg] Liz Villarreal PA-C Work Phone: [facility] 05-19-2023 15:30-0400 Body height 160 cm Lyndon Estes MD Work Phone: [facility] 05-19-2023 15:30-0400 Body weight 56.25 kg Lyndon Estes MD Work Phone: [facility] 05-19-2023 15:30-0400 Diastolic blood pressure 64 mm[Hg] Lyndon Estes MD Work Phone: [facility] 05-19-2023 15:30-0400 Heart rate 94 /min Lyndon Estes MD Work Phone: [facility] 05-19-2023 15:30-0400 SaO2% (BldA) [Mass fraction] 96 % Lyndon Estes MD Work Phone: [facility] 05-19-2023 15:30-0400 Systolic blood pressure 108 mm[Hg] Lyndon Estes MD Work Phone: [facility] 10-12-2022 12:36-0500 Diastolic blood pressure 89 mm[Hg] Marcelo Prince MD Work Phone: [facility] 10-12-2022 12:36-0500 Heart rate 83 /min Marcelo Prince MD Work Phone: [facility] 10-12-2022 12:36-0500 Systolic blood pressure 131 mm[Hg] Marcelo Prince MD Work Phone: [facility] 10-04-2022 16:31-0500 Body height 160 cm Nayely Nazario MD Work Phone: [facility] 10-04-2022 16:31-0500 Body weight 53.98 kg Nayely Nazario MD Work Phone: [facility] 10-04-2022 16:31-0500 Diastolic blood pressure 92 mm[Hg] Nayely Nazario MD Work Phone: [facility] 10-04-2022 16:31-0500 Heart rate 89 /min Nayely Nazario MD Work Phone: [facility] 10-04-2022 16:31-0500 SaO2% (BldA) [Mass fraction] 100 % Nayely Nazario MD Work Phone: [facility] 10-04-2022 16:31-0500 Systolic blood pressure 145 mm[Hg] Nayely Nazario MD Work Phone: [facility] 08-24-2022 14:32-0400 Diastolic blood pressure 80 mm[Hg] Lyndon Estes MD Work Phone: [facility] 08-24-2022 14:32-0400 Systolic blood pressure 126 mm[Hg] Lyndon Estes MD Work Phone: [facility] 08-24-2022 14:05-0400 Body height 157.5 cm Lyndon Estes MD Work Phone: [facility] 08-24-2022 14:05-0400 Body weight 53.98 kg Lyndon Estes MD Work Phone: [facility] 08-24-2022 14:05-0400 Heart rate 94 /min Lyndon Estes MD Work Phone: [facility] 08-24-2022 14:05-0400 SaO2% (BldA) [Mass fraction] 97 % Lyndon Estes MD Work Phone: [facility] 07-30-2022 15:57-0400 Diastolic blood pressure 86 mm[Hg] Lyndon Estes MD Work Phone: [facility] 07-30-2022 15:57-0400 Systolic blood pressure 130 mm[Hg] Lyndon Estes MD Work Phone: [facility] 07-30-2022 15:36-0400 Body height 157.5 cm Lyndon Estes MD Work Phone: [facility] 07-30-2022 15:36-0400 Body weight 53.98 kg Lyndon Estes MD Work Phone: [facility] 07-30-2022 15:36-0400 Heart rate 97 /min Lyndon Estes MD Work Phone: [facility] 07-30-2022 15:36-0400 SaO2% (BldA) [Mass fraction] 97 % Lyndon Estes MD Work Phone: [facility] 07-16-2022 10:52-0400 Diastolic blood pressure 84 mm[Hg] Julita Sofia DO Work Phone: [facility] 07-16-2022 10:52-0400 Heart rate 87 /min Julita Sofia DO Work Phone: [facility] 07-16-2022 10:52-0400 Systolic blood pressure 153 mm[Hg] Julita Sofia DO Work Phone: [facility] 06-11-2022 16:25-0400 Body height 157.5 cm Millie Kaur APRN.CN P Work Phone: [facility] 06-11-2022 16:25-0400 Body temperature 97.39 [degF] iMllie Hudsonbena PROVIDER NETWORK ANALYST.CN P Work Phone: [facility] 06-11-2022 16:25-0400 Body weight 55.79 kg Millie Hudsonbena PROVIDER NETWORK ANALYST.CN P Work Phone: [facility] 06-11-2022 16:25-0400 Diastolic blood pressure 87 mm[Hg] Millie Kubena PROVIDER NETWORK ANALYST.TUNNELLER Work Phone: [facility] 06-11-2022 16:25-0400 Heart rate 76 /min Millie Hudsonbedebbie CHANGN.CN P Work Phone: [facility] 06-11-2022 16:25-0400 SaO2% (BldA) [Mass fraction] 99 % Millie Dalila PROVIDER NETWORK ANALYST.TUNNELLER Work Phone: [facility] 06-11-2022 16:25-0400 Systolic blood pressure 136 mm[Hg] Millie Dalila PROVIDER NETWORK ANALYST.TUNNELLER Work Phone: [facility] 02-17-2022 09:55-0400 Diastolic blood pressure 88 mm[Hg] Marcelo Prince MD Work Phone: [facility] 02-17-2022 09:55-0400 Heart rate 82 /min Marcelo Prince MD Work Phone: [facility] 02-17-2022 09:55-0400 Systolic blood pressure 128 mm[Hg] Marcelo Prince MD Work Phone: [facility] 02-02-2022 13:40-0400 Body temperature 97.9 [degF] DEBBIE Eller MD Work Phone: [facility] 02-02-2022 13:40-0400 Diastolic blood pressure 91 mm[Hg] DEBBIE Eller MD Work Phone: [facility] 02-02-2022 13:40-0400 Heart rate 83 /min DEBBIE Eller MD Work Phone: [facility] 02-02-2022 13:40-0400 Respiratory rate 20 /min DEBBIE Eller MD Work Phone: [facility] 02-02-2022 13:40-0400 SaO2% (BldA) [Mass fraction] 100 % DEBBIE Eller MD Work Phone: [facility] 02-02-2022 13:40-0400 Systolic blood pressure 145 mm[Hg] DEBBIE Eller MD Work Phone: [facility] Encounters Encounter Date Encounter Type Care Provider Facility Start: 09-06-2023 Denise Mir PROVIDER NETWORK ANALYST.TUNNELLER Work Phone: [facility] [place] Procedures Date Procedure Procedure Detail Performing Clinician Start: 08-03-2023 INFLUENZA VACCINE, A GE 6 MO - 64 YR, QUADRIVALENT (AFLURIA, FLULAVAL, FLUZONE) Lyndon Estes MD Work Phone: Start: 04-06-2023 Antibody screen JOSE PRINCE Plan of Treatment Date Care Activity Detail Author Start: 01-28-2028 PROSTATE CANCER SCRE ENING DISCUSSION PROSTATE CANCER SCREENING DISCUSSION [facility] Start: 08-03-2026 Diabetes Screening Diabetes Screenin [facility] Start: 05-26-2026 DIABETES SCREEN DIABETES SCREEN [facility] Start: 05-26-2026 Diabetes Screening Diabetes Screenin g [facility] Start: 05-20-2026 DIABETES SCREEN DIABETES SCREEN [facility] Start: 05-19-2026 DIABETES SCREEN DIABETES SCREEN [facility] Start: 04-06-2026 DIABETES SCREEN DIABETES SCREEN [facility] Start: 01-27-2026 DIABETES SCREEN DIABETES SCREEN [facility] Start: 09-11-2025 Lipid 1996 panel - S yue or Plasma Lipid Screening [facility] Start: 09-11-2025 LIPID SCREEN LIPID SCREEN [facility] Start: 09-03-2025 DIABETES SCREEN DIABETES SCREEN [facility] Start: 08-24-2025 DIABETES SCREEN DIABETES SCREEN [facility] Start: 07-30-2025 DIABETES SCREEN DIABETES SCREEN [facility] Start: 07-30-2025 Urine microalbumin profile [facility] Start: 04-19-2025 DIABETES SCREEN DIABETES SCREEN [facility] Start: 01-27-2025 DIABETES SCREEN DIABETES SCREEN [facility] Start: 01-28-2024 HEPATITIS C SCREENING HEPATITIS C SC [facility] Immunizations Immunization Date Immunization Notes Care Provider Fa devan 08-03-2023 influenza, injectabl e, quadrivalent, contains preservative Lyndon Estes MD Work Phone: [facility] 07-30-2022 influenza, injectabl e, quadrivalent, contains preservative Lyndon Estes MD Work Phone: [facility] 04-19-2022 COVID-19 vaccine, ag e 12+ yr ([facility] [employer] [facility] Katiana Loera LPN Work Phone: [facility] 07-21-2021 influenza, injectabl e, quadrivalent, contains preservative NA Eller MD Work Phone: [facility] 09-11-2020 influenza, injectabl e, quadrivalent, contains preservative DEBBIE Eller MD Work Phone: [facility] 07-30-2015 tetanus toxoid, redu yong diphtheria toxoid, and acellular pertussis vaccine, adsorbed DEBBIE Eller MD Work Phone: [facility] Payers Date Payer Category Payer Medicaid [employer] [id number] 2019-Present [phone] [address] [place] [address] Medicaid [id number] 2019 Medicaid [employer] [id number] 2019-Present [phone] [address] [place] [address] Medicaid [id number] 2019 Unknown ANTHEM BLUE CROS S AND BLUE SHIELD ANTHEM MEDIBLUE O [id number] 2019-Present [phone] [address] [id number] 2019 Unknown ANTHEM BLUE CROS S AND BLUE SHIELD ANTHEM MEDIBLUE O [id number] 2019-Present [id number] [place], [place] [id number] O [id number] 2019 Unknown [id number] 2019 Unknown [id number] 1965 Unknown [id number] Social History Date Type Detail Facility Start: 05-23-2013 Tobacco smoking stat us [facility] Never smoked tobacco [facility] Start: 02-02-2022 End: 08-22-2023 Alcohol intake Current non-drinker of alcohol (finding) [facility] Start: 1965 Sex Assigned At Not on file [facility] Start: 01-23-2022 End: 10-12-2022 Exposure to SARS-CoV-2 (event) Not sure [facility] Start: 02-23-2022 End: 03-05-2022 Exposure to SARS-CoV-2 (event) Unable to assess [facility] Start: 04-14-2022 History SDOH Financial 5 [facility] Start: 04-14-2022 End: 04-07-2023 History SDOH Food Worry 1 [facility] Start: 04-14-2022 End: 04-07-2023 History SDOH Transport Med 2 [facility] Start: 05-23-2013 Tobacco use and exposure Smokeless tobacco non-user [facility] Start: 04-14-2023 End: 05-20-2023 History of Social function [facility] Work Phone: Start: 04-14-2023 End: 05-20-2023 Tobacco use panel [facility] Work Phone: Adult Depression Screening Assessment 0 [facility] Work Phone: (I/We) worried wheth er (my/our) food would run out before (I/we) got money to buy more. Never true [facility] In the past 12 month s, was there a time when you were not able to pay the mortgage or rent on time? No [facility] Work Phone: Clinical Notes 02-02-2008 to 09-06-2023 [...] Felicita Kennedy LPN. documented in this encounter [facility] 09-05-2023 Miscellaneous Notes Faxed signed order to [employer] for urological supplies. Mabel Lopez LPN documented in this encounter [facility] 08-22-2023 Note HNO ID: [id number] Author: Juan Daniel Wolff PA-C Service: ? Author Type: Physician Blood Bank Order Control Clerk Type: Progress Notes Filed: 08/22/2023 8:46 PM Note Text: 57 year old male new to [place] with spina bfida, hydrocephallus, brain shunt.c/o Hospital discharge follow up Facility [facility] Date of admission 08/09/2023 Date of discharge [...] which was successful. Patient has presence of FALSEWORK BUILDER shunt which made concerns for surgical evaluation. Patient was transferred to [facility], initially kept n.p.o. MDM patient was admitted to [facility] because no bed was available at [facility]. Advance to transitional diet where he also [...] (HCC) Inguinal hernia left - imaging at [place] Sleep apnea Spina bifida (HCC) Urinary retention PAST SURGICAL HISTORY Procedure Laterality Date CRTJ SHUNT [id number] TERMINUS EGD W/O RUST SPEC VARICIES INJ 08/06/2021 PAST SURGICAL HISTORY [...] ICD9: V67.59, ICD10: (more content not included)... [facility] 08-19-2023 Miscellaneous Notes Thanks for the [...] admitted on , and D/C yesterday at [facility] for small bowel obstruction issues. Says he was doing well on the Motegrity. Since, D/C, advised to consult for next plan. Should he take the Reglan in addition to the Motegrity? Also, follow-up?? Believes he overdue for a EGD (high risk)? Please advise. documented in this encounter [facility] 08-18-2023 Note Patient Outreach (FA MPWS) JIAN FUENTES ([id number]) 1965 M Date Time Provider Department 08/18/23 KASSY KYLE During your visit today, we recorded the following information about you: Kassy Kyle Ma 08/19/2023 8:19 AM Signed TRANSITION CARE MANAGEMENT (TCM) INITIAL CONTACT Life Trainer Outreach Provider Action/FYI: Left message for Darrion deng, to return call Initial contact with patient post discharge, spoke to . Patient identified by name and . TRANSITION CARE MANAGEMENT INITIAL OUTREACH DOCUMENTATION: Date of Outreach: 08/18/2023 Outreach Attempt 1: Contact Not Made Date of Discharge 08/15/2023 Some recent data might be hidden SUMMARY: -Pt discharged from [facility] on 08/15/23. -Admitted for: Small Bowel Obstruction Do you have a hospital follow up appointment with your PCP? Appointment on with 08/22/23 with Brayan Wolff MEDICATIONS: Many patients have questions or concerns about their medications once they are home. Were you prescribed any new medications? Yes waiting special education resource room teacher from [facility] [place] on a medication Were you told to hold any medications? No Were any of your medications discontinued? No Do you have any questions about getting or taking your medications? No Your discharge instructions/After visit Summary (AVS) are important in guiding you through the recovery process. Is there anything I might help you understand? waiting for call back from [facility] [place] Do you have all the necessary equipment and supplies at home? No, follow site specific process to secure durable medical equipment and/or supplies for the patient, handoff to RN/CHURCH BUSINESS ADMINISTRATOR, or LIP Medical records from recent hospitalization: [facility] Allergies As of Date: 08/18/2023 Noted Allergy Reaction CONTRAST DYE 10/29/2010 10 - Anaphylaxis FD AND C BLUE NO.1 07/29/2006 IODINATED CONTRAST MEDIA 12/11/2020 10 - Anaphylaxis MACRODANTIN (NITROFURANTOIN MACRO*10/29/2010 8 - GI Upset NITROFURANTOIN 12/11/2020 8 - GI Upset PHENYTOIN 07/29/2006 Date Reviewed: 08/03/2023 Reviewed by: Kaylee Greenberg LPN - Fully Assessed Reason for Visit: Transition Of Care [4074] Cmt: [facility] 08/09/23-08/15/23 Prescriptions as of 08/19/2023 - metoclopramide [...] PALSY - INFANTILE) HEMIPLEGIA, CON*02/02/2008 05/22/2013 Myelodysplasia [[id number]] 05/22/2013 Deformity of ankle and foot, acquired [...] Status:Closed by KASSY KYLE MA on 08/19/23 [facility] 08-18-2023 Note HNO ID: [id number] Author: Kassy Kyle Ma Service: ? Author Type: ? Type: Progress Notes Filed: 08/19/2023 8:19 AM Note Text: TRANSITION CARE MANAGEMENT (TCM) INITIAL CONTACT Life Trainer Outreach Provider Action/FYI: Left message for sister, Darrion, to return call Initial contact with patient post discharge, spoke to sister. Patient identified by name and . TRANSITION CARE MANAGEMENT INITIAL OUTREACH DOCUMENTATION: Date of Outreach: 08/18/2023 Outreach Attempt 1: Contact Not Made Date of Discharge 08/15/2023 Some recent data might be hidden SUMMARY: -Pt discharged from [facility] on 08/15/23. -Admitted for: Small Bowel Obstruction Do you have a hospital follow up appointment with your PCP? Appointment on with 08/22/23 with Brayan Wolff MEDICATIONS: Many patients have questions or concerns about their medications once they are home. Were you prescribed any new medications? Yes waiting special education resource room teacher from [facility] on a medication Were [...] and/or supplies for the patient, handoff to RN/CHURCH BUSINESS ADMINISTRATOR, or LIP Medical records from recent hospitalization: [facility] 08-18-2023 History of Presen t illness Narrative TRANSITION CARE MANAGEMENT (TCM) INITIAL CONTACT Life Trainer Outreach Provider Action/FYI: Left message for Darrion deng, to return call Initial contact with patient post discharge, spoke to sister. Patient identified by name and . TRANSITION CARE MANAGEMENT INITIAL OUTREACH DOCUMENTATION: Date of Outreach: 08/18/2023 Outreach Attempt 1: Contact Not Made Date of Discharge 08/15/2023 Some recent data might be hidden SUMMARY: -Pt discharged from [facility] on 08/15/23. -Admitted for: Small Bowel Obstruction Do you have a hospital follow up appointment with your PCP? Appointment on with 08/22/23 with Brayan Wolff MEDICATIONS: Many patients have questions or concerns about their medications once they are home. Were you prescribed any new medications? Yes waiting special education resource room teacher from main campus on a medication Were you told to hold any medications? No Were any of your medications discontinued? No Do you have any questions about getting or taking your medications? No Your discharge instructions/After visit Summary (AVS) are important in guiding you through the recovery process. Is there anything I might help you understand? waiting [facility] Do you have all the necessary equipment and supplies at home? No, follow site specific process to secure durable medical equipment and/or supplies for the patient, handoff to RN/CHURCH BUSINESS ADMINISTRATOR, or LIP Medical records from recent hospitalization: [facility] documented in this encounter [facility] 08-15-2023 Miscellaneous Notes FYI: Elizabeth vitale Product Coordinator with [employer] calls to report that pt is getting discharged today from [facility]. Pt was dx with a small bowel obstruction which has been resolved. Lily Noonan LPN [facility] calls back to let provider know that patient is currently at [facility] ER for bowel obstruction. Catheter has been changed in ER. Christiano reports patient is going to be a transfer to [facility]. Christiano will call back for resumption of care orders once released from hospital. Daniela Nelson RN Christiano from [facility] Home Health calling time for recert for [...] diagnosis. Please advise documented in this encounter [facility] 08-11-2023 Miscellaneous Notes Spoke with Jian Fuentes ( sister Darrion)on August 11, 2023. Patient Update - Darrion stated and informed of patient status Admitted in [facility] since TuesdayAugust 08 with NG Tube with drainage of 500-1000 cc daily . Waiting on a Hospital bed at [facility] per patients request. Ms. Verdugo was made aware that Liz was out of the office until Aug.15 . Discussed while her brother (patient) was admitted into the hospital at [facility] he would be under the Physicians at the hospital care plan and treatment plan until discharge . Ms. Verdugo verbalized understanding. -Maryan Juarez LPN Sis (Darrion) called. Says Jian will be admitted at [facility], but he's waiting on a bed right [...] well. Please advise. documented in this encounter [facility] 08-05-2023 Miscellaneous Notes Talked to patients sister and she understands he needs to drink less pain water and moire electrolytes Ericka Rubin . Sodium is low. Are they watching his fluid intake. Again, limit plain water and use electrolyte drinks etc for now. Recheck bmp in a few weeks. documented in this encounter [facility] 08-03-2023 Note HNO ID: [id number] Author: Lyndon Estes MD Service: ? Author [...] (HCC) Inguinal hernia left - imaging at [place] Sleep apnea Spina bifida (HCC) Urinary retention PAST SURGICAL HISTORY Procedure Laterality Date CRTJ SHUNT [id number] TERMINUS EGD W/O BRSH SPEC VARICIES INJ [...] Estes RTO in six weeks and prn. [facility] 08-03-2023 History of Presen t illness [...] (HCC) Inguinal hernia left - imaging at [place] Sleep apnea Spina bifida (HCC) Urinary retention PAST SURGICAL HISTORY Procedure Laterality Date CRTJ SHUNT [id number] TERMINUS EGD W/O BRSH SPEC VARICIES INJ [...] weeks and prn. documented in this encounter [facility] 07-13-2023 Miscellaneous Notes Signed and faxed back. Placed on Tommy's desk for review and completion. Sarahy Monet Type of form: Home Health Certification and POC Form received via fax When form is completed, Fax form to [phone] Form has been forwarded to Physician Mailbox: Dr. Tommy Guajardo LPN documented in this encounter [facility] 06-13-2023 Note HNO ID: [id number] Author: Liz Villarreal PA-C Service: ? Author Type: Physician Blood Bank Order Control Clerk Type: Progress Notes Filed: 06/13/2023 10:17 PM [...] (HCC) Inguinal hernia left - imaging at [place] Sleep apnea Spina bifida (HCC) Urinary retention PAST SURGICAL HISTORY Procedure Laterality Date CRTJ SHUNT [id number] TERMINUS EGD W/O BRSH SPEC VARICIES INJ [...] male presenting with spina bifida, hydrocephalus with FALSEWORK BUILDER shunt AND is wheelchair-bound who has chronic [...] see the patie (more content not included)... [facility] 06-13-2023 History of Presen t illness [...] (HCC) Inguinal hernia left - imaging at [place] Sleep apnea Spina bifida (HCC) Urinary retention PAST SURGICAL HISTORY Procedure Laterality Date CRTJ SHUNT [id number] TERMINUS EGD W/O RUST SPEC VARICIES INJ 08/06/2021 PAST SURGICAL HISTORY [...] male presenting with spina bifida, hydrocephalus with FALSEWORK BUILDER shunt & is wheelchair-bound who has chronic [...] which included preparing to see the patient, uoja-ow-dgfz patient care, completing clinical documentation, obtaining and/or reviewing separately obtained history, performing a medically appropriate examination, counseling and educating the patient/family/caregiver, ordering medications, tests, or procedures, communicating results to the patient/family/caregiver, and care coordination (not separately reported). Liz Villarreal PA-C Neurogastroenterology Section Department of Gastroenterology June 13, 2023 documented in this encounter [facility] 06-13-2023 Miscellaneous Notes Ok. Juan from [facility] calls and states that he did re-certification of patient today. Juan states that [facility] will visit patient 1 time a month in June and 2 times a month in July. Patient gets catheter changes once every month, and patient will need to be re-certified again at end of July. Please review and advise, Mercy Noonan RN documented in this encounter [facility] 06-09-2023 Miscellaneous Notes Faxed signed orders by Azam Virgen PA-C for urological supplies, bedside drainage bad, to [facility]. Mabel Lopez LPN documented in this encounter [facility] 05-30-2023 Miscellaneous Notes Spoke with Darrion, patients [...] brother. Message left for return call from sisterDarrion. Sarahy Monet Sodium is still low. Did they make changes that we discussed at last ov. documented in this encounter [facility] 05-23-2023 Miscellaneous Notes PHARMACY EMERGENCY DEPARTMENT CULTURE [...] Prior to Admission medications as of 05/20/23 4330 Medication Sig Last Dose Taking sulfamethoxazole-trimethoprim (BACTRIM [...] 2022 10:15am OTC Patient's Preferred Pharmacy: e- [facility]/pharmacy #[id number] [place] [address] - [address]. - [phone] Please page/call with any issues or questions. Electronic signature: Lesli Rutherford RPh May 23, 2023 7:55 PM Pager/Extension: [phone] documented in this encounter [facility] 05-23-2023 Miscellaneous Notes Sister made aware Urine culture from ER did come back positive. It is somewhat resistant. Add bactrim. Rx sent documented in this encounter [facility] 05-21-2023 Note HNO ID: [id number] Author: Liz Villarreal PA-C Service: ? Author Type: Physician Blood Bank Order Control Clerk Type: Progress Notes Filed: 07/28/2023 11:24 PM [...] SURGICAL HISTORY Procedure Laterality Date CRTJ SHUNT [id number] TERMINUS EGD W/O BRSH SPEC VARICIES INJ [...] texture, turgor normal (more content not included)... [facility] 05-20-2023 Miscellaneous Notes Patient's sister notified of same. Placed call to patients sister Darrion. No answer. Left for return call. Sarahy Monet Potassium is normal. His sodium however is very low again. Make sure not drinking plain water. Supplement with things like gatorade etc. Recheck bmp next week documented in this encounter [facility] 05-19-2023 Note HNO ID: [id number] Author: Lyndon Estes MD Service: ? Author Type: Physician Type: Progress Notes Filed: 05/19/2023 4:13 PM Note Text: Patient presents with: Hospital F/U HPI: Patient presents today for office visit for hospital follow up. Admitted into [facility] on 05/09/23 Discharged on 05/16/23 Due to [...] old male with spina bifida, hydrocephalus s/p FALSEWORK BUILDER shunt placement (at 19 yo in ), neurogenic bladder s/p chronic bowman placement (follows with Dr. Prince at [facility]), who presents on 04/03/2023 as transfer from [facility] for recurrent small bowel obstruction. Imaging obtained [...] (HCC) Inguinal hernia left - imaging at [place] Sleep apnea Spina bifida (HCC) Urinary retention PAST SURGICAL HISTORY Procedure Laterality Date CRTJ SHUNT [id number] TERMINUS EGD W/O BRSH SPEC VARICIES INJ [...] hydrocephalus, unspecified s (more content not included)... [facility] 05-19-2023 History of Presen t illness Narrative Patient presents with: Hospital F/U HPI: Patient presents today for office visit for hospital follow up. Admitted into [facility] on 05/09/23 Discharged on 05/16/23 Due to [...] old male with spina bifida, hydrocephalus s/p FALSEWORK BUILDER shunt placement (at 19 yo in ), neurogenic bladder s/p chronic bowman placement (follows with Dr. Prince at [facility]), who presents on 04/03/2023 as transfer from [facility] for recurrent small bowel obstruction. Imaging obtained [...] (HCC) Inguinal hernia left - imaging at [place] Sleep apnea Spina bifida (HCC) Urinary retention PAST SURGICAL HISTORY Procedure Laterality Date CRTJ SHUNT [id number] TERMINUS EGD W/O BRSH SPEC VARICIES INJ [...] Lyndon Estes MD documented in this encounter [facility] 05-18-2023 Miscellaneous Notes Called sister Lesli notified [...] hospital again. Needs labs done. Shruthi from [facility] HH calls to report that [facility] had gone out to see patient on 05/16 to resume HH after patient was discharged from hospital. Patient is supposed to be getting labs drawn for renal function. Patient had family is not wanting home health to come and do this. Patient and family is only wanting [facility] to come out to only change the bowman catheter. This needs to be changed again on 05/30 Patient was prescribed erythromycin ethylsuccinate 200 mg/5ml suspension which patient is supposed to be taking 2.5 mL TID and metoclopramide 5 mg tablet which patient is supposed to be taking every 6 hours. 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 Patient has hospital follow up appointment with Dr. Estes on 05/19/2023 which patient and family are supposed to discuss the above with provider. Mercy Noonan RN documented in this encounter [facility] 05-18-2023 Miscellaneous Notes Yvette from [facility] reports pt was hospitalized 05/09 - 05/16/2023 & has a FU appt 05/19/23. Pt's sister is asking for a list of high potassium foods when she brings pt in for his appt. Felicita Kennedy LPN documented in this encounter [facility] 05-04-2023 Note HNO ID: [id number] Author: Giselle Reese RN Service: ? Author Type: Registered Nurse Type: Progress Notes Filed: 05/04/2023 2:42 PM Note Text: TRANSITION CARE MANAGEMENT (TCM) FOLLOW-UP NOTE Provider Action/FYI Chart reviewed. Unable to reach pt/pts sister Darrion for TCM follow-up call, left voicemail. Will continue to follow. Summary: Pt discharged from [facility] on 04/06/23. Admitted for: small bowel obstruction PMHx spina bifida, hydrocephalus s/p FALSEWORK BUILDER shunt placement, s/p chronic bowman placement Signature Giselle Reese RN May 04, 2023 [facility] 05-04-2023 History of Presen t illness Narrative TRANSITION CARE MANAGEMENT (TCM) FOLLOW-UP NOTE Provider Action/FYI Chart reviewed. Unable to reach pt/pts sister Darrion for TCM follow-up call, left voicemail. Will continue to follow. Summary: Pt discharged from [facility] on 04/06/23. Admitted for: small bowel obstruction PMHx spina bifida, hydrocephalus s/p FALSEWORK BUILDER shunt placement, s/p chronic bowman placement Signature Giselle Reese RN May 04, 2023 documented in this encounter [facility] 05-04-2023 Note Patient Outreach (AM [facility]) JIAN FUENTES ([id number]) 1965 M Date Time Provider Department 05/04/23 GISELLE REESE During your visit today, we recorded the following information about you: Giselle Reese RN 05/04/2023 2:42 PM Signed TRANSITION CARE MANAGEMENT (TCM) FOLLOW-UP NOTE Provider Action/FYI Chart reviewed. Unable to reach pt/pts sister Darrion for TCM follow-up call, left voicemail. Will continue to follow. Summary: Pt discharged from [facility] on 04/06/23. Admitted for: small bowel obstruction PMHx spina bifida, hydrocephalus s/p FALSEWORK BUILDER shunt placement, s/p chronic bowman placement Signature [...] PALSY - INFANTILE) HEMIPLEGIA, CON*02/02/2008 05/22/2013 Myelodysplasia [[id number]] 05/22/2013 Deformity of ankle and foot, acquired [...] Encounter Status:Closed by GISELLE REESE on 05/04/23 [facility] 04-20-2023 Note HNO ID: [id number] Author: Giselle Reese RN Service: ? Author [...] Status: In-Network Discharge Summary: Pt discharged from [facility] on 04/06/23. Admitted for: small bowel obstruction PMHx spina bifida, hydrocephalus s/p FALSEWORK BUILDER shunt placement, s/p chronic bowman placement Signature Giselle Reese RN April 20, 2023 [facility] 04-20-2023 History of Presen t illness [...] Status: In-Network Discharge Summary: Pt discharged from [facility] on 04/06/23. Admitted for: small bowel obstruction PMHx spina bifida, hydrocephalus s/p FALSEWORK BUILDER shunt placement, s/p chronic bowman placement Signature Giselle Reese RN April 20, 2023 documented in this encounter [facility] 04-20-2023 Note Patient Outreach (AM [facility]) JIAN FUENTES ([id number]) 1965 M Date Time Provider Department 04/20/23 [...] Status: In-Network Discharge Summary: Pt discharged from [facility] [place] on 04/06/23. Admitted for: small bowel obstruction PMHx spina bifida, hydrocephalus s/p FALSEWORK BUILDER shunt placement, s/p chronic bowman placement Signature [...] PALSY - INFANTILE) HEMIPLEGIA, CON*02/02/2008 05/22/2013 Myelodysplasia [[id number]] 05/22/2013 Deformity of ankle and foot, acquired [...] Encounter Status:Closed by GISELLE REESE on 04/20/23 [facility] 04-15-2023 Miscellaneous Notes Notified. Ok to do Bushra with [facility] HH asking provider for order to allow [facility] to see patient monthly for catheter changes; 1 month x 1, then 2 months x 1. Please call Bushra at [phone]. Thank you. documented in this encounter [facility] 04-07-2023 Note Patient Outreach (AM [facility]) JIAN FUENTES ([id number]) 1965 M Date Time Provider Department 04/07/23 GISELLE REESE During your visit today, we recorded the following information about you: Giselle Reese RN 04/07/2023 10:14 AM Signed TCM Home Visit Referral Source of Stratification: [facility] Admission Status: Discharged Readmission Risk Score: 17 SHAMA Score: 8 Patient meets program referral criteria: No Patient does not qualify for High Risk TCM Home Visit program due to: Discharged home, does not meet program criteria Giselle Reese RN April 07, 2023 10:14 AM TRANSITIONAL CARE MANAGEMENT (TCM) COMMUNITY MONITORING PROGRAM Provider Action/FYI: PMHx spina bifida, hydrocephalus s/p FALSEWORK BUILDER shunt placement, s/p chronic bowman placement Spoke with pts sister Ramsey, she is primary caregiver and lives with him, she states pt does not c/o pain, no sob, still burping a lot, had small stool last night, she is keeping him on full liquid diet today then she said she would advance as tolerated-she states she used to be a [employer], no fever/chills, abdomen soft but still slightly distended Navigation Team Please assist with scheduling [facility] Hospital Discharge Follow up. TCM Eligible until 04/20/23 Thank you SUMMARY: Discharge Network Status: In-Network Discharge Pt discharged from [facility] on 04/06/23. Admitted for: small bowel obstruction Contact made with patient: Yes Hi my name is Giselle Reese RN and I am calling from the [facility] on behalf of your PCP, Lyndon Estes [...] like to speak with a social work [employer] team member to help give you support [...] I will send your request to a planner/scheduler who will contact and assist you with that appointment. This will give you an opportunity to ask any questions or address any concerns you may have with your PCP. Inform the patient that if they have any questions or concerns prior to that appointment, to call their PCP's office right away. ACTION TAKEN: Patient desires an appointment - Routed to [facility] [[id number]] for scheduling telehealth visit (telephonic, virtual visit, [...] emergency symptoms, pro (more content not included)... [facility] 04-07-2023 Note HNO ID: [id number] Author: Kaitlynn Mitchell MA Service: ? Author Type: Life Trainer Type: Progress Notes Filed: 04/07/2023 11:04 AM Note Text: POPULATION HEALTH NAVIGATION OUTREACH Action/FYI April 07, 2023 Spoke with pt's sisterLesli. Pt scheduled for hospital follow up appt on 04/14/23 with PCP. Contact: Lesli Bansal (Sister) [phone] (Home Phone TCM eligible through 04/20/23 Pt discharged from [facility] on 04/06/23 Admitted for: small bowel obstruction Patient Identified by Name and : YES, via phone Outreach Outcome/Action Spoke to patient / parent / legal guardian: Patient scheduled Did you use a PCP flex slot to schedule this appointment? No Reason for Outreach Community Monitoring Pool Payer: Payor: [employer] / Plan: [employer] HMO / Product Type: HMO / Care Gap Reviewed:: Follow-up appointment Reminder: Reminder note to check Health Maintenance for items below Health Maintenance items due: COLORECTAL CANCER SCREENING due on 03/27/2022 COVID-19 VACCINE(4 - Booster for Moderna series) due on 06/14/2022 Navigation Signature: Kaitlynn Mitchell MA April 07, 2023 10:52 AM [facility] 04-07-2023 Note HNO ID: [id number] Author: Giselle Reese RN Service: ? Author Type: Registered Nurse Type: Progress Notes Filed: 04/07/2023 10:14 AM Note Text: TCM Home Visit Referral Source of Stratification: TCM [facility] Hospital Admission Status: Discharged Readmission Risk Score: 17 SHAMA Score: 8 Patient meets program referral criteria: No Patient does not qualify for High Risk TCM Home Visit program due to: Discharged home, does not meet program criteria Giselle Reese RN April 07, 2023 10:14 AM TRANSITIONAL CARE MANAGEMENT (TCM) COMMUNITY MONITORING PROGRAM Provider Action/I: PMHx spina bifida, hydrocephalus s/p FALSEWORK BUILDER shunt placement, s/p chronic bowman placement Spoke with pts sister Ramsey, she is primary caregiver and lives with him, she states pt does not c/o pain, no sob, still burping a lot, had small stool last night, she is keeping him on full liquid diet today then she said she would advance as tolerated-she states she used to be a [employer], no fever/chills, abdomen soft but still slightly distended Navigation Team Please assist with scheduling [facility] Hospital Discharge Follow up. TCM Eligible until 04/20/23 Thank you SUMMARY: Discharge Network Status: In-Network Discharge Pt discharged from [facility] [place] on 04/06/23. Admitted for: small bowel obstruction Contact made with patient: Yes Hi my name is Giselle Reese RN and I am calling from the [facility] on behalf of your PCP, Lyndon Estes [...] like to speak with a social work pizza hut team member to help give you support [...] I will send your request to a planner/scheduler who will contact and assist you with that appointment. This will give you an opportunity to ask any questions or address any concerns you may have with your PCP. Inform the patient that if they have any questions or concerns prior to that appointment, to call their PCP's office right away. ACTION TAKEN: Patient desires an appointment - Routed to [facility] [[id number]] for scheduling telehealth visit (telephonic, virtual visit, [...] if possible). IRENE Education Ordered -: No [facility] 04-06-2023 Note HNO ID: [id number] Author: Arian Nichols RN Service: Care Management [...] Primary Care Physician Name/Phone: Lyndon Estes MD [phone] Patient d/c ready to home with no skilled needs identified. Patient and bedside RN aware of plan. Family to transport patient home via private auto. SIGNATURE: Arian Nichols RN PATIENT NAME: Jian Fuentes DATE: April 07, 2023 TIME: 8:42 AM CONTACT #: [phone] [facility] 04-06-2023 Note HNO ID: [id number] Author: Roscoe Dejesus MD Service: General Surgery Author Type: Resident Type: Progress Notes Filed: 04/06/2023 10:38 AM Note Text: GENERAL SURGERY SERVICE PROGRESS NOTE Jian Fuentes [id number] ASSESSMENT: Jian Fuentes is 57 year old PMHx spina bifida, hydrocephalus s/p FALSEWORK BUILDER shunt placement (at 19 yo in ), neurogenic bladder s/p chronic bowman placement (follows with Dr. Prince at [facility]), and bilateral asymptomatic inguinal hernias who presented as transfer from [facility] for recurrent small bowel obstructions. Imaging shows [...] Acute Care Surgery (ACS) Day Floor Pager: [phone] Acute Care Surgery (ACS) Day Consults Pager: [phone] On nights (6 pm to 6 am) and on Weekends/Holidays, please page the on-call pager: [phone] Subjective INTERVAL HPI: NG tube removed yesterday afternoon. Tolerating clear liquids this morning. No nausea or vomiting. Having bowel function which is helped by suppositories. Objective BP 154/90 Pulse 90 Temp (Src) 98.4 (Oral) Resp 16 Ht 5' 3 (1.60m) Wt 127 lb 13.9 oz (58.0kg) SpO2 98% BMI 22.66 kg/(m2). O2 Therapy: Room Air Date 04/05/23 0700 - 04/06/23 0659 04/06/23 0700 - 04/07/23 0659 Shift 7572-8169 8727-7753 1716-4080 24 Hour Total 8317-4129 9640-4164 7245-5445 24 Hour Total INTAKE PO 0 0 PO 0 0 IV 1600 961 699 9237 Volume (mL) (levoFLOXacin iv piggyback 750 mg in D5W 150 mL (LEVAQUIN)) 150 150 Volume (mL) (lactated ringers iv infusion) 1450 831 224 0585 Shift Total 1600 610 710 5855 OUTPUT Urine 650 6711 546 8865 Output ( Indwelling Urinary Catheter 04/03/23 0240 Admission to [facility]) 650 9871 688 7433 Emesis 0 0 Emesis (ml) 0 0 Tubes 100 100 Output ([REMOVED] GI Feed 04/03/23 0241 Admission to [facility] Gastric Left Naris 04/05/23 1745) 100 100 # of BMs Number of BMs 0 x 2 x 2 x Shift Total 750 5564 935 1006 Weight (kg) 58 58 58 58 58 58 58 58 Lines, Drains, and Airways Line Duration Peripheral 04/06/23 1006 Right Arm 22 Gauge <1 day Drain Duration Indwelling Urinary Catheter 04/03/23 0240 Admission to [facility] 3 days OBJECTIVE: BP 154/90 Pulse 90 [...] Anesthesia Type: * LAPAROSCOPY DIAGNOSTIC - General [facility] 04-05-2023 Note HNO ID: [id number] Author: Saravanan Interiano MD Service: General Surgery [...] Hyperkalemia x Other, please specify hypokalemia _ [facility] 04-05-2023 Miscellaneous Notes Maru Prakash Breastfeeding Educator- phoned to let pcp know, patient went to [facility] ER and was admitted on 04-02-23 with intestinal obstruction and UTI, then transferred to [facility] Main on 04-03-23. Possible discharge tomorrow, 04-06-23 as the obstruction is resolving and will not need surgery. documented in this encounter [facility] 04-05-2023 Note HNO ID: [id number] Author: Saravanan Interiano MD Service: General Surgery Author Type: Resident Type: Progress Notes Filed: 04/05/2023 9:01 AM Note Text: GENERAL SURGERY SERVICE PROGRESS NOTE Jian Fuentes [id number] ASSESSMENT: Jian Fuentes is 57 year old PMHx spina bifida, hydrocephalus s/p FALSEWORK BUILDER shunt placement (at 19 yo in ), neurogenic bladder s/p chronic bowman placement (follows with Dr. Prince at [facility]), and bilateral asymptomatic inguinal hernias who presented as transfer from [facility] for recurrent small bowel obstructions. Imaging shows [...] Acute Care Surgery (ACS) Day Floor Pager: [phone] Acute Care Surgery (ACS) Day Consults Pager: [phone] On nights (6 pm to 6 am) and on Weekends/Holidays, please page the on-call pager: [phone] Subjective INTERVAL HPI: NAEON NGT with 100 cc Objective BP 136/76 Pulse 75 Temp (Src) 97.9 (Axillary) Resp 16 Ht 5' 3 (1.60m) Wt 127 lb 13.9 oz (58.0kg) SpO2 95% BMI 22.66 kg/(m2). O2 Therapy: Room Air Date 04/04/23 07 - 04/05/23 0659 04/05/23 07 - 04/06/23 0659 Shift 0842-9176 5186-6241 3838-6222 24 Hour Total 7611-3588 0103-2212 4700-7995 24 Hour Total INTAKE PO 0 0 [...] 990 0 0 990 OUTPUT Urine 750 7524 219 7163 Output ( Indwelling Urinary Catheter 04/03/23239 Admission to Hospital [facility]) 750 9901 640 7870 Emesis 0 0 Emesis (ml) 0 0 [...] Anesthesia Type: * LAPAROSCOPY DIAGNOSTIC - General [facility] 04-04-2023 Note HNO ID: [id number] Author: Arian Nichols RN Service: Care Management [...] Admission Status: Inpatient [place] [facility] [place] Planning requested by: Attending Provider Potential Transition Plans To Be Determined Advance Directives Current Advance Directive: Health Care Power of Internal Corrosion Specialist In Chart: No Current Living Arrangements and [...] Be able to go home, General wellness Carm[place] of Choice Explained: [place] of Choice Given: No Reason Not Given: [...] male with PMHx spina bifida, hydrocephalus s/p FALSEWORK BUILDER shunt placement (at 19 yo in ), neurogenic bladder s/p chronic bowman placement who was transferred 04/03 from [facility] for recurrent small bowel obstructions. Needs TBD. Family to transport at D/C. SIGNATURE: Arian Nichols RN PATIENT NAME: Jian Fuentes DATE: April 04, 2023 TIME: 3:16 PM CONTACT #: [phone] [facility] 04-04-2023 Note HNO ID: [id number] Author: Johanna Read RT(R) Service: Radiology Author [...] Read, RT(R) April 04, 2023 10:53 AM [facility] 04-04-2023 Note HNO ID: [id number] Author: Saravanan Interiano MD Service: General Surgery Author Type: Resident Type: Progress Notes Filed: 04/04/2023 8:44 AM Note Text: GENERAL SURGERY SERVICE PROGRESS NOTE Jian Fuentes [id number] ASSESSMENT: Jian Fuentes is 57 year old PMHx spina bifida, hydrocephalus s/p FALSEWORK BUILDER shunt placement (at 19 yo in ), neurogenic bladder s/p chronic bowman placement (follows with Dr. Prince at [facility]), and bilateral asymptomatic inguinal hernias who presented as transfer from [facility] for recurrent small bowel obstructions. Imaging shows [...] Acute Care Surgery (ACS) Day Floor Pager: [phone] Acute Care Surgery (ACS) Day Consults Pager: [phone] On nights (6 pm to 6 am) and on Weekends/Holidays, please page the on-call pager: [phone] Subjective INTERVAL HPI: NAEON NGT with 750 cc Objective BP 140/74 Pulse 81 Temp (Src) 98.6 (Axillary) Resp 16 Ht 5' 3 (1.60m) Wt 127 lb 13.9 oz (58.0kg) SpO2 95% BMI 22.66 kg/(m2). O2 Therapy: Room Air Date 04/03/23 07 - 04/04/23 0659 04/04/23 07 - 04/05/23 0659 Shift 4769-9007 0433-6498 0161-6320 24 Hour Total 6788-3440 2113-1207 0960-5905 24 Hour Total INTAKE PO 0 0 PO 0 0 IV 004 557 6461 Volume (mL) (levoFLOXacin iv piggyback 750 mg in D5W 150 mL (LEVAQUIN)) 150 150 Volume (mL) (potassium chloride iv piggyback 20 mEq/100 mL) 200 200 Volume (mL) (lactated ringers iv infusion) 900 900 Shift Total 350 0 900 1250 OUTPUT Urine 350 933 555 3532 Output ( Indwelling Urinary Catheter 04/03/23239 Admission to Hospital Bowman) 350 361 802 9582 Tubes 0 500 250 750 Output (GI [...] Coags, BMP, Mg, Phos Recent Labs 04/03/23 0604 04/03/23 0603 WBC 9.15 -- HB 14.0 -- HCT [...] Anesthesia Type: * LAPAROSCOPY DIAGNOSTIC - General [facility] documented as of this encounter (statuses as of 04/14/2023) [facility]05-21-2023 History of Past illness Narrative* Problem Noted Date Resolved Date Small bowel obstruction 04/03/2023 04/06/20 23 CP (CEREBRAL PALSY - INFANTILE) HEMIPLEGIA, TESFAYE ENITAL 02/02/2008 05/22/2013 documented as of this encounter (statuses as of 04/15/2023) [facility]05-21-2023 History of Past illness Narrative* Problem Noted Date Resolved Date Small bowel obstruction 04/03/2023 04/06/20 23 CP (CEREBRAL PALSY - INFANTILE) HEMIPLEGIA, TESFAYE ENITAL 02/02/2008 05/22/2013 documented as of this encounter (statuses as of 04/21/2023) [facility]05[facility]21[facility]2023 History of Past illness Narrative* Problem Noted Date Resolved Date Small bowel obstruction 04/03/2023 04/06/20 23 CP (CEREBRAL PALSY - INFANTILE) HEMIPLEGIA, TESFAYE ENITAL 02/02/2008 05/22/2013 documented as of this encounter (statuses as of 05/04/2023) [facility]2023 History of Past illness Narrative* Problem Noted Date Resolved Date Small bowel obstruction 04/03/2023 04/06/20 23 CP (CEREBRAL PALSY - INFANTILE) HEMIPLEGIA, TESFAYE ENITAL 02/02/2008 05/22/2013 documented as of this encounter (statuses as of 05/19/2023) [facility] History of Past illness Narrative* Problem Noted Date Resolved Date Small bowel obstruction 04/03/2023 04/06/20 23 SBO (small bowel obstruction) 04/14/2022 CP (CEREBRAL PALSY - INFANTILE) HEMIPLEGIA, TESFAYE ENITAL 02/02/2008 05/22/2013 documented as of this encounter (statuses as of 05/20/2023) [facility] History of Past illness Narrative* Problem Noted Date Resolved Date Small bowel obstruction 04/03/2023 04/06/20 23 SBO (small bowel obstruction) 04/14/2022 CP (CEREBRAL PALSY - INFANTILE) HEMIPLEGIA, TESFAYE ENITAL 02/02/2008 05/22/2013 documented as of this encounter (statuses as of 05/20/2023) [facility] History of Past illness Narrative* Problem Noted Date Diagnosed Date Resolved Date Small bowel obstruction 04/03/202303/15 SBO (small bowel obstruction) 04/14/2022 05/19/2023 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, 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 05/22/2013 documented as of this encounter (statuses as of 05/24/2023) [facility] History of Past illness Narrative* Problem Noted Date Diagnosed Date Resolved Date Small bowel obstruction 04/03/202303/15 SBO (small bowel obstruction) 04/14/2022 05/19/2023 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, 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 05/22/2013 documented as of this encounter (statuses as of 05/30/2023) [facility] History of Past illness Narrative* Problem Noted Date Diagnosed Date Resolved Date Small bowel obstruction 04/03/202303/15 SBO (small bowel obstruction) 04/14/2022 05/19/2023 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, 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 05/22/2013 documented as of this encounter (statuses as of 06/10/2023) [facility] History of Past illness Narrative* Problem Noted Date Diagnosed Date Resolved Date Small bowel obstruction 04/03/20232 02/2023 SBO (small bowel obstruction) 04/14/2022 05/19/2023 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, 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 05/22/2013 documented as of this encounter (statuses as of 06/14/2023) [facility] History of Past illness Narrative* Problem Noted Date Diagnosed Date Resolved Date Small bowel obstruction 04/03/202303/15 SBO (small bowel obstruction) 04/14/2022 05/19/2023 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, 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 05/22/2013 documented as of this encounter (statuses as of 06/14/2023) [facility] History of Past illness Narrative* Problem Noted Date Diagnosed Date Resolved Date Small bowel obstruction 04/03/202303/15 SBO (small bowel obstruction) 04/14/2022 05/19/2023 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, 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 05/22/2013 documented as of this encounter (statuses as of 06/29/2023) [facility] History of Past illness Narrative* Problem Noted Date Diagnosed Date Resolved Date Small bowel obstruction 04/03/202303/15 SBO (small bowel obstruction) 04/14/2022 05/19/2023 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, 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 05/22/2013 documented as of this encounter (statuses as of 07/05/2023) [facility] History of Past illness Narrative* Problem Noted Date Diagnosed Date Resolved Date Small bowel obstruction 04/03/202303/15 SBO (small bowel obstruction) 04/14/2022 05/19/2023 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, 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 05/22/2013 documented as of this encounter (statuses as of 07/13/2023) [facility] History of Past illness Narrative* Problem Noted Date Diagnosed Date Resolved Date Small bowel obstruction 04/03/202303/15 SBO (small bowel obstruction) 04/14/2022 05/19/2023 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, 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 05/22/2013 documented as of this encounter (statuses as of 08/04/2023) [facility]20[facility] History of Past illness Narrative* Problem Noted Date Diagnosed Date Resolved Date Small bowel obstruction 04/03/20232 02/2023 SBO (small bowel obstruction) 04/14/2022 05/19/2023 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, 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 05/22/2013 documented as of this encounter (statuses as of 08/05/2023) [facility]05[facility] History of Past illness Narrative* Problem Noted Date Diagnosed Date Resolved Date Small bowel obstruction 04/03/20232 02/2023 SBO (small bowel obstruction) 04/14/2022 05/19/2023 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, 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 05/22/2013 documented as of this encounter (statuses as of 08/12/2023) [facility]2023 History of Past illness Narrative* Problem Noted Date Diagnosed Date Resolved Date Small bowel obstruction 04/03/202303/15 SBO (small bowel obstruction) 04/14/2022 05/19/2023 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, 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 05/22/2013 documented as of this encounter (statuses as of 08/16/2023) [facility]20[facility] History of Past illness Narrative* Problem Noted Date Diagnosed Date Resolved Date Small bowel obstruction 04/03/2023 05/2 02/2023 SBO (small bowel obstruction) 04/14/2022 05/19/2023 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, 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 05/22/2013 documented as of this encounter (statuses as of 08/20/2023) [address]21-2023 History of Past illness Narrative* Problem Noted Date Diagnosed Date Resolved Date Small bowel obstruction 04/03/20232 02/2023 SBO (small bowel obstruction) 04/14/2022 05/19/2023 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, 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 05/22/2013 documented as of this encounter (statuses as of 08/20/2023) [facility] History of Past illness Narrative* Problem Noted Date Diagnosed Date Resolved Date Small bowel obstruction 04/03/202303/15 SBO (small bowel obstruction) 04/14/2022 05/19/2023 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, 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 05/22/2013 documented as of this encounter (statuses as of 09/05/2023) [facility] History of Past illness Narrative* Problem Noted Date Diagnosed Date Resolved Date Small bowel obstruction 04/03/202303/15 SBO (small bowel obstruction) 04/14/2022 05/19/2023 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, 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 05/22/2013 documented as of this encounter (statuses as of 09/07/2023) [facility]05-21-2023 NoteHNO ID: [id number] Author: Татьяна Hernandez MD Service: General Surgery Author Type: Resident Type: Progress Notes Filed: 04/03/2023 12:15 PM Note Text: GENERAL SURGERY SERVICE PROGRESS NOTE Jian Fuentes [id number] ASSESSMENT: Jian Fuentes is 57 year old PMHx spina bifida, hydrocephalus s/p FALSEWORK BUILDER shunt placement (at 19 yo in ), neurogenic bladder s/p chronic bowman placement (follows with Dr. Prince at [facility]), and bilateral asymptomatic inguinal hernias who presented as transfer from [facility] for recurrent small bowel obstructions. Imaging shows [...] Acute Care Surgery (ACS) Day Floor Pager: [phone] Acute Care Surgery (ACS) Day Consults Pager: [phone] On nights (6 pm to 6 am) and on Weekends/Holidays, please page the on-call pager: [phone] Subjective INTERVAL HPI: NAEON since admission Objective BP 135/83 Pulse 85 Temp (Src) 98.1 (Oral) Resp 18 Ht 5' 3 (1.60m) Wt 127 lb 13.9 oz (58.0kg) SpO2 97% BMI 22.66 kg/(m2). O2 Therapy: Room Air Date 04/02/23 07 - 04/03/23 06(Not Admitted) 04/03/23 07 - 04/04/23 0659 Shift 4171-1902 6439-8121 4776-9050 24 Hour Total 3725-8726 0452-7007 5664-1730 24 Hour Total INTAKE IV 200 200 [...] 04/03/23240 Admission to Hospital Gastric Left Naris <1 [...] <1 day SURGERY/PROCEDURE: * Surgery not found *[facility]04-25-2023 NoteHNO ID: [id number] Author: Katiana Hoyos RN Service: ? Author Type: Registered Nurse Type: Progress Notes Filed: 03/08/2023 3:04 PM Note Text: TRANSITION CARE MANAGEMENT (TCM) FOLLOW-UP NOTE Provider Action/FYI Discharge Network Status: Eqm-rq-Viamefx (OON) Discharge Summary: Pt discharged from [facility] on 02/24/23. Admitted for: Ileus, UTI Concerns: Attempted to reach pt for TCM follow up, left for sister Lesli with CC contact information. Encouraged to contact PCP for questions or concerns. Medical Equipment Repairer plan for next outreach: Will continue to follow during TCM 30 day period Signature Katiana Hoyos RN March 08[facility]04[facility]25-[facility]23 History of Present illness Narrative* Katiana Hoyos RN - 03/08/2023 3:00 PM EDT TRANSITION CARE MANAGEMENT (TCM) FOLLOW-UP NOTE Provider Action/FYI Discharge Network Status: Drb-tw-Kniwbrd (OON) Discharge Summary: Pt discharged from [facility] on 02/24/23. Admitted for: Ileus, UTI Concerns: Attempted to reach pt for TCM follow up, VM left for sister Lesli with CC contact information. Encouraged to contact PCP for questions or concerns. Medical Equipment Repairer plan for next outreach: Will continue to follow during TCM 30 day period Signature Katiana Hoyos RN March 08, 2023 documented in this encounterLakehealth [facility]04-25-2023 NotePatient Outreach ([facility]) JIAN FUENTES ([id number]) 1965 M Date Time Provider Department 03/08/23 KATIANA HOYOS During your visit today, we recorded the following information about you: Katiana Hoyos RN 03/08/2023 3:04 PM Signed TRANSITION CARE MANAGEMENT (TCM) FOLLOW-UP NOTE Provider Action/FYI Discharge Network Status: Vew-fx-Wlcppte (OON) Discharge Summary: Pt discharged from [facility] on 02/24/23. Admitted for: Ileus, UTI Concerns: Attempted to reach pt for TCM follow up, VM left for sister Lesli with CC contact information. Encouraged to contact PCP for questions or concerns. 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 Author Type: Life Trainer Type: Progress Notes Filed: 03/03/2023 10:04 AM Note Text: POPULATION HEALTH NAVIGATION OUTREACH Action/March 03, 2023 2nd attempt - spoke with pt's sister who declines appt at this time. Sister states she will contact PCP's office directly with any updates or to schedule if she feels the need. TCM eligible through 03/10/23 Pt discharged from [facility] on 02/24/23. Admitted for: Ileus, UTI Patient Identified by Name and : YES, via phone Outreach Outcome/Action Spoke to patient / parent / legal guardian: Patient declined Did you use a PCP flex slot to schedule this appointment? N/A Reason for Outreach [facility] Monitoring [place] Payer: Payor: SUZY PERDUE / Plan: [employer] MEDIBLUE HMO / Product Type: HMO / Care Gap Reviewed:: Follow-up appointment Reminder: Reminder note to check Health Maintenance for items below Health Maintenance items due: COLORECTAL CANCER SCREENING due on 03/27/2022 COVID-19 VACCINE(4 - Booster for Moderna series) due on 06/14/2022 Navigation Signature: Kaitlynn Mitchell MA March 03, 2023 9:56 [facility]04-18-2023 NoteHNO ID: [id number] Author: Ros Paez MA Service: ? Author Type: Life Trainer Type: Progress Notes Filed: 03/01/2023 5:11 PM Note Text: POPULATION HEALTH NAVIGATION OUTREACH Action/March 01, 2023 Pt discharged from [facility] on 02/24/23. Admitted for: Ileus, UTI TCM [...] schedule this appointment? N/A Reason for Outreach [facility] Monitoring [place] Payer: Payor: SUZY PERDUE / Plan: [employer]M MEDIBLUE HMO / Product Type: HMO / Care Gap Reviewed:: Follow-up appointment Reminder: Reminder note to check Health Maintenance for items below Health Maintenance items due: COLORECTAL CANCER SCREENING due on 03/27/2022 COVID-19 VACCINE(4 - Booster for Moderna series) due on 06/14/2022 Navigation Signature: Ros Paez MA March 01, 2023 5:00 [facility]04-18-2023 NoteHNO ID: [id number] Author: Katiana Hoyos RN Service: ? Author Type: Registered Nurse Type: Progress Notes Filed: 03/01/2023 4:56 PM Note Text: TRANSITIONAL CARE MANAGEMENT ([facility]) COMMUNITY MONITORING PROGRAM Provider Action/FYI: PCP Pt discharged from [facility] on 02/24/23. Admitted for: Ileus, UTI Per [...] with his urologist who is at the [facility] concerning your bladder stone -Sister will contact Dr. Nazario's office tomorrow Navigation Team Please assist with scheduling [facility] Hospital Discharge Follow up. TCM Eligible until 03/10/23. OON DC Thank you SUMMARY: Discharge Network Status: Ans-qm-Goqtpkz (OON) Discharge Pt discharged from [facility] on 02/24/23. Admitted for: Ileus, UTI Contact made with patient: Yes Hi my name is Katiana Hoyos RN and I am calling from the [facility] on behalf of your PCP, Lyndon Estes [...] like to speak with a social work [employer] team member to help give you support [...] I will send your request to a planner/scheduler who will contact and assist you with that appointment. This will give you an opportunity to ask any questions or address any concerns you may have with your PCP. Inform the patient that if they have any questions or concerns prior to that appointment, to call their PCP's office right away. ACTION TAKEN: Patient desires an appointment - Routed to [facility] [[id number]] for scheduling telehealth visit (telephonic, virtual visit, [...] symptoms, proceed to Rohini (more content not included)...[facility]04-18-2023 NotePatient Outreach ([facility]) JIAN FUENTES ([id number]) 1965 M Date Time Provider Department 03/01/23 KATIANA HOYOS During your visit today, we recorded the following information about you: Katiana Hoyos RN 03/01/2023 4:56 PM Signed TRANSITIONAL CARE MANAGEMENT (TCM) COMMUNITY MONITORING PROGRAM Provider Action/FYI: PCP Pt discharged from [facility] on 02/24/23. Admitted for: Ileus, UTI Per [...] with his urologist who is at the [facility] concerning your bladder stone -Sister will contact Dr. Nazario's office tomorrow Navigation Team Please assist with scheduling TCM Hospital Discharge Follow up. TCM Eligible until 03/10/23. OON DC Thank you SUMMARY: Discharge Network Status: Jsz-eq-Jqmzcuu (OON) Discharge Pt discharged from [facility] on 02/24/23. Admitted for: Ileus, UTI Contact made with patient: Yes Hi my name is Katiana Hoyos RN and I am calling from the [facility] on behalf of your PCP, Lyndon Estes [...] like to speak with a social work [employer] team member to help give you support [...] I will send your request to a planner/scheduler who will contact and assist you with that appointment. This will give you an opportunity to ask any questions or address any concerns you may have with your PCP. Inform the patient that if they have any questions or concerns prior to that appointment, to call their PCP's office right away. ACTION TAKEN: Patient desires an appointment - Routed to [facility] [[id number]] for scheduling telehealth visit (telephonic, virtual visit, [...] do so. For a (more content not included)...[facility]04-14-2023 Miscellaneous Notes * Telephone Encounter - Lesli Burton Ma - 02/25/2023 1:04 PM EDT Marisabel was notified with provider response Lesli Burton Ma * Telephone Encounter - Lyndon Estes MD - 02/25/2023 12:55 PM EDT ok * Telephone Encounter - Juan Daniel Finn RN - 02/25/2023 12:48 PM EDT Marisabel, [facility], reports patient was discharged yesterday from [facility] with orders for HHC. Marisabel spoke with sister, who is caregiver, and requested delay / resumption of care until 02-28-23. Please phone Marisabel with verbal approval. documented in this encounterLakehealth [facility]04-12-2023 Miscellaneous Notes* Telephone Encounter - Juan Daniel Finn RN - 02/23/2023 8:09 AM EDT Aurelio Prakash- phoned to let pcp know, patient was admitted to [facility] on 02-20-23 with ileus and is still an inpatient. documented in this encounterLakehealth [facility]point [facility] Center04-06-2023 Miscellaneous Notes* Telephone Encounter - Kishor Briseno - 02/17/2023 10:54 AM EDT Patient's request for medication is as follows: Requested Prescriptions Pending Prescriptions Disp Refills linaCLOtide (LINZESS) 290 mcg capsule 30 capsule 3 Sig: Take 1 capsule by mouth DAILY (6 AM). Please send this med to [facility] pharmacy in [place], [place] on [address] [place]. documented in this encounterLakehealth [facility]point Medical Center04-05-2023 Miscellaneous Notes* Telephone Encounter - Kaylee Greenberg LPN - 02/16/2023 12:27 PM EDT Completed and faxed. * Telephone Encounter - Rich Guajardo LPN - 02/16/2023 10:22 AM EDT Type of form: Home Health Care Orders Form received via fax When form is completed, Fax form to [phone] Form has been forwarded to Physician Mailbox: Dr. Tommy Guajardo LPN documented in this encounterLakehealth [facility]point [facility] Center03-31-2023 Miscellaneous Notes* Telephone Encounter - Kaylee Greenberg LPN - 02/11/2023 4:44 PM EDT Signed and faxed as requested. * Telephone Encounter - Rich Guajardo LPN - 02/11/2023 3:16 PM EDT Type of form: Home Health Care Orders Form received via fax When form is completed, Fax form to [phone] Form has been forwarded to Physician Mailbox: Dr. Tommy Guajardo LPN documented in this encounterLakehealth Tripoint Medical Center03-31-2023 Miscellaneous Notes* Telephone Encounter - Daniela Nelson RN - 02/11/2023 12:20 PM EDT Moriah calling from [facility] to report plan of care for patient and SN will visit patient 1 time a monthfor a month and 1 times a week for 2 weeks. SN will work with patient on obwman placement, disease management, and medication education. Moriah reports no call back needed if provider agrees with POC. Daniela Nelson RN documented in this encounterLakehealth Tripoint Medical Center03-17-2023 Miscellaneous Notes* Telephone Encounter - Kaylee Greenberg LPN - 01/28/2023 12:44 PM EDT Notified sister Darrion and verbalizes understanding. * Telephone Encounter - Lyndon Estes MD - 01/28/2023 12:14 PM EDT Sodium has dropped again. I think we discussed before that they pushed plain water. Change to something like gatorade etc. Recheck bmp in one week documented in this encounterLakehealth [facility]point Medical Center03-16-2023 NoteHNO ID: [id number] Author: Lyndon Estes MD Service: ? Author [...] (HCC) Inguinal hernia left - imaging at [place] Sleep apnea Spina bifida (HCC) Urinary retention PAST SURGICAL HISTORY Procedure Laterality Date CRTJ SHUNT [id number] TERMINUS EGD W/O BRSH SPEC VARICIES INJ [...] 781.2, ICD10: R26.9 - stable. Lyndon Estes, [facility]02-06-2023 Miscellaneous Notes* Telephone Encounter - Stephanie Wahl LPN - 12/20/2022 10:28 AM EST NEIL Hankinssql manager for [facility] calling to let you know pt was d/c from [facility] on 12-15-22. Pt had a large bowel blockage. (FYI pt was sent there because there was no beds at [facility] per [facility]). Stephanie Wahl LPN documented in this encounterLakehealth Tripoint Medical Center02-03-2023 Miscellaneous Notes* Telephone Encounter - Melodie Kim RN - 12/17/2022 1:05 PM EST Sallie at [facility] notified by detailed VM on her identified line. Melodie Kim RN * Telephone Encounter - Juan Daniel Finn RN - 12/17/2022 9:38 AM EST Sallie- [facility] asking for approval for POC to see patient 2 x month for 2 months for bowman catheter change and recertification. Please phone Sallie with verbal. documented in this encounterLakehealth [facility]point Medical Center02-02-2023 Miscellaneous Notes* Telephone Encounter - Kishor Briseno [...] her brother'scurrent update now. documented in this encounterLakehealth Tripoint Medical Center02-01-2023 NoteSend Summary: Discharge Summary Providers: Provider RoleProvider Name AttendingMiMaddie Simms Note Recipients: Correct Info, Needed, Von aBss MD Miller-Ocuin, Jennifer L, MD Required, No Pcp, MD Discharge: Summary: Admission Date: .11-Dec-2022 08:52:00 Discharge Date: 15-Dec-2022 Attending Physician at Discharge: Maddie Thornton Admission Reason: Obstipation Final Discharge Diagnoses: Obstipation, Obstruction of colon Procedures: none Condition at Discharge: Satisfactory Disposition at Discharge: Home Health Care - Resumed Vital Signs: T PRBPMAPSpO2 [id number]/8692% Date/Time12/15 5:542/ 5:542/ 5:542/ 5:542/ 5:54 Range(35.9C - 37.1C ) (72 - 102 ) (16 - 18 ) (117 - 148 )/ (77 - 88 ) (92% - 96% ) Highest temp of 37.1 C was recorded at 12/14 9:24 Date: Weight/Scale Type:Height: 11-Dec-2022 16:1954.4 kg / gfw240.9 cm Physical Exam: Constitutional: Pleasant, calm and [...] a history of congenital hydrocephalus s/p remote FALSEWORK BUILDER shunt (revision at 19yo), bowel dysmotility, neurogenic [...] none Home Care Certification: Skilled Disciplines Ordered: RN/CHURCH BUSINESS ADMINISTRATOR, for monthly Bowman catheter change Home Care [...] discharge: Full Code Electronic Signatures: Long Saldaña (PROVIDER NETWORK ANALYST-TUNNELLER) (Signed 15-Dec-2022 13:32) Authored: Send Summary, Summary Content, Ongoing Care, DNR Status, Note Completion Last Updated: 15-Dec-2022 13:32 by Long Saldaña (PROVIDER NETWORK ANALYST-TUNNELLER)[facility]01-31-2023 Miscellaneous Notes* Telephone Encounter - Daniela Nelson RN - 12/14/2022 10:15 AM EST Nhi mendoza with [facility] calls to let provider know that patient was transferred to [facility] instead of [facility]. Not certain as to why but they are discussing discharge planning at this time. Daniela Nelson RN documented in this encounterLakehealth Tripoint Medical Center01-28-2023 NoteClinical Note - Pharmacy v2: Education: Document TopicMedication Education MedicationMeds to Beds: Patient accepts Meds to Beds service at discharge, please send prescriptions to [facility]. Sources used to confirm home medication list: Family interview with sister Darrion Barrow (patient's client support manager), Continuity of Care Document [facility] 12/11/2022, fill history Additional comments: Patient's sister reports he takes baclofen at 6 AM, 2 PM, and 10 PM daily Medication reconciliation complete Please reach out via UserMojo for questions Wesley Mueller PharmD PGY-1 [facility] Is This Intervention Medication Reconciliation Relatedyes Time Pxiqovgf53-60 minutes Additional NotesHome Medications Review Status for [...] Contrast Reaction: Anaphylaxis Electronic Signatures: Wesley Mueller ([facility]) (Signed 11-Dec-2022 14:53) Authored: Education, Allergy Yobani Romero ([facility]) (Signed 11-Dec-2022 18:26) Co-Signer: Stuart, Allergy Last Updated: 11-Dec-2022 18:26 by Yobani Romero ([facility]01-28-2023 NoteHistory of Present Illness: HPI: JIAN FUENTES is a 57 year old Male with Hx congenital hydrocephalus s/p remote FALSEWORK BUILDER shunt (revision at 19yo), bowel dysmotility, neurogenic [...] seizures, prior small bowel obstructions PSH: remote FALSEWORK BUILDER shunt Allergies: None FHX: noncontributory Meds: baclofen [...] are negative Objective: Objective Information: T PRBPMAPSpO2 Value36.25498625/9095% Date/Time12/11 9: 12: 12: 12: 12:16 Range(36.8C [...] Male with Hx congenital hydrocephalus s/p remote FALSEWORK BUILDER shunt (revision at 19yo), bowel dysmotility, neurogenic bladder, HTN, HLD, seizures who presented to OSH with abdominal pain c/f significant constipation vs rectosigmoid narrowing. Plan: -2x tap water enemas now to (more content not included)...[facility]12-19-2022 Miscellaneous Notes* Telephone Encounter - Mabel Lopez [...] Rea LPN - 11/01/2022 12:43 PM EST Chidii with [facility] called, stating patient sister took catheter out of Nurse hand when going to place new one in patient, the patient sister proceeded to place catheter in patient, later that evening removed catheter stating it was not working and took to ER. Sister stated ER Placed a 14French instead of 16 Swazi. [facility] is frustrated with the sister, and want to know if they should continue bowman changes or can it be done in office? Please advise. Thank you. Cori# [phone] * Telephone Encounter - Mercy Noonan RN - 10/29/2022 1:32 PM EST Shruthi from [facility] calls and states that she had changed Bowman catheter today. [facility] is decreasing their frequency of visits to 1 time a month. Next visit is 11/23/2022 where they will re-certify patient again. Mercy Noonan RN documented in this encounterLakehealth Tripoint Medical Center12-09-2022 Miscellaneous Notes* Telephone Encounter - Kaylee Greenberg LPN - 10/22/2022 10:33 AM EST Left detailed message as advised. * Telephone Encounter - Lyndon Estes MD - 10/22/2022 8:29 AM EST Ok to do * Telephone Encounter - Stephanie Wahl LPN - 10/22/2022 8:15 AM EST Sallie with [facility], nursing called to get a verbal order to move apt from today to reevaluate. Apt was to be today but pt has declined apt today and asking to have next week. Please call Sallie with verbal order. Okay to leave a message. [phone]. Stephanie Wahl LPN documented in this encounterLakehealth Tripoint Medical Center11-29-2022 NoteHNO ID: [id number] Author: Marcelo Prince MD Service: ? Author Type: Physician Type: Progress Notes Filed: 10/12/2022 4:09 PM Note Text: [facility] UROLOGY HISTORY AND PHYSICAL ESTABLISHED PATIENT VISIT [...] other surgery planned. Patient was admitted to [facility] for SBO on 04/14/2022 and was treated [...] (HCC) Inguinal hernia left - imaging at [place] Sleep apnea Spina bifida (HCC) Urinary retention PAST SURGICAL HISTORY Procedure Laterality Date CRTJ SHUNT [id number] TERMINUS EGD W/O BRSH SPEC VARICIES INJ [...] SP tube placement fo (more content not included)...[facility]11-29-2022 NotePatient Outreach (UROLMN) JIAN FUENTES ([id number]) 1965 M Date Time Provider Department 10/12/22 MARCELO PRINEC URODARREL During your visit today, we recorded the [...] for genitourinary condition [Z13.89] Order(s):URINALYSIS, REFLEX MICROSCOPIC [ADG7417] Order #: [id number] Prescriptions as of 10/15/2022 - MOTEGRITY 2 [...] PALSY - INFANTILE) HEMIPLEGIA, CON*02/02/2008 05/22/2013 Myelodysplasia [ZWL3118] 05/22/2013 Deformity of ankle and foot, acquired [M21.969] 07/31/2015 Weakness [R53.1] 07/31/2015 Abnormality of gait [R26.9] 07/31/2015 Spina bifida (HCC) [Q05.9] 08/22/2018 Neurogenic bladder [N31.9] 08/22/2018 Benign prostatic hyperplasia with urinary reten*08/29/2020 Right inguinal hernia [K40.90] 04/06/2021 Hydrocephalus (HCC) [G91.9] 04/06/2021 Urinary retention [R33.9] 04/06/2021 SBO (small bowel obstruction) (HCC) [K56.609] 04/14/2022 History of brain shunt [Z98.2] 07/16/2022 Encounter Status:Closed by JOE, PRODUSER on 10/15/22[facility] 10-12-2022 History of Present illness Narrative* Marcelo Prince MD - 10/12/2022 12:[address] [facility] UROLOGY HISTORY AND PHYSICAL ESTABLISHED PATIENT VISIT [...] other surgery planned. Patient was admitted to [facility] for SBO on 04/14/2022 and was treated [...] (HCC) Inguinal hernia left - imaging at [place] Sleep apnea Spina bifida (HCC) Urinary retention PAST SURGICAL HISTORY Procedure Laterality Date CRTJ SHUNT [id number] TERMINUS EGD W/O BRSH SPEC VARICIES INJ [...] worsens Marcelo Prince MD documented in this encounterLakehealth Tripoint Medical Center11-23-2022 Miscellaneous Notes* Telephone Encounter - Kaylee Greenberg LPN - 10/06/2022 12:11 PM EST Completed and faxed. * Telephone Encounter - Sarahy Monet - 10/04/2022 12:05 PM EST Physician order placed on Pontoosuc's desk for signature. Needs faxed back to [phone] Sarahy Monet documented in this encounterLakehealth Tripoint Medical Center11-21-2022 Instructions* Patient Instructions* Liz Villarreal PA-C - [...] anytime. My PA Liz, nurse Aileen and company secretary Kishor are also very familiar with you and they can help as well, but I am here for you anytime.Follow up appt at: [phone]. Scheduling number is: [phone] Best regards, Nayely Nazario M.D Tetryl Screen Operator, GI motility & pelvic floor clinic Department of Gastroenterology, Nutrition & Hepatology [facility] [place] ([facility]) [facility] documented in this encounterLakehealth Tripoint Medical Center11-21-2022 NoteHNO ID: [id number] Author: Nayely Nazario MD Service: ? Author Type: Physician Type: Progress Notes Filed: 10/05/2022 4:55 PM Note Text: DEPARTMENT OF GASTROENTEROLOGY - NEW PATIENT/CONSULT NEUROGASTROENTEROLOGY SECTION GI MOTILITY AND PELVIC FLOOR CLINIC REASON FOR VISIT Jian Fuentes is a 56 year old male who is scheduled at the request of Millie Kaur for slow transit dysmotility. My final recommendations will be communicated back to the requesting physician by the way of the shared medical record, fax, or via US Mail.slow transit dysmotility HISTORY OF PRESENT ILLNESS Patient presents with sister (a CHURCH BUSINESS ADMINISTRATOR). Jian Fuentes is a 56 year old [...] testing in the past 09/28/2022 XRAY ABDOMEN ([facility]) IMPRESSION: Persistent large bowel ileus. No evidence of SBO. EGD 08/06/2021([facility]) IMPRESSION: Normal esophagus Duodenal polyp, resected [...] (HCC) Inguinal hernia left - imaging at [place] Sleep apnea Spina bifida (HCC) Urinary retention PAST SURGICAL HISTORY Procedure Laterality Date CRTJ SHUNT [id number] TERMINUS EGD W/O BRSH SPEC VARICIES INJ [...] acute distress RECENT LABS (more content not included)...[facility]11-21-2022 History of Present illness Narrative* Nayely Nazario MD - 10/04/2022 3:30 PM EST DEPARTMENT OF GASTROENTEROLOGY - NEW PATIENT/CONSULT NEUROGASTROENTEROLOGY SECTION GI MOTILITY & PELVIC FLOOR CLINIC REASON FOR VISIT Jian Fuentes is a 56 year old male who is scheduled at the request of Millie Kaur for slow transit dysmotility. My final recommendations will be communicated back to the requesting physician by the way of the shared medical record, fax, or via US Mail.slow transit dysmotility HISTORY OF PRESENT ILLNESS Patient presents with sister (iam CHURCH BUSINESS ADMINISTRATOR). Jian Fuentes is a 56 year old [...] - zero, stress d/t hospitalizations Worked at [employer] until COVID19 & bowel problems becoming time consuming Reviewed extensive testing in the past 09/28/2022 XRAY ABDOMEN ([facility]) IMPRESSION: Persistent large bowel ileus. No evidence of SBO. EGD 08/06/2021([facility]) IMPRESSION: Normal esophagus Duodenal polyp, resected [...] (HCC) Inguinal hernia left - imaging at [place] Sleep apnea Spina bifida (HCC) Urinary retention PAST SURGICAL HISTORY Procedure Laterality Date CRTJ SHUNT [id number] TERMINUS EGD W/O BRSH SPEC VARICIES INJ [...] of the abdomen <1 mo ago at [facility]. Recent xray with persistent large bowel [...] follow up as needed Nayely Nazario M.D Tetryl Screen Operator, GI motility & pelvic floor clinic Department of Gastroenterology, nutrition & hepatology [facility] [place] ([facility]) [facility] I spent a total of 60 minutes on the date of the service which included preparing to see the patient, [id number]-[id number] patient care, completing clinical documentation, obtaining and/or reviewing separately obtained history, performing a medically appropriate examination, counseling and educating the pat ient/family/caregiver, ordering medications, tests, or procedures, communicating with other HCPs (not separately reported), independently interpreting results (not separately reported), communicatingresults to the patient/family/caregiver, and care coordination (not separately reported). documented in this encounterLakehealth Tripoint Medical Center11-16-2022 Miscellaneous Notes* Telephone Encounter - Dalia Floyd RN - 09/29/2022 2:15 PM EST NANETTE Jimenez @ [facility] calling to let PCP know PT evaluated patient today and patient does not need physical therapy services at this time. He is at his baseline prior to hospitalization. Dalia Floyd RN documented in this encounterLakehealth Tripoint Medical Center11-02-2022 Miscellaneous Notes* Telephone Encounter - Kaylee Greenberg LPN - 09/15/2022 11:40 AM EDT Form on Dr Tommy stephenson for review. * Telephone Encounter - Rich Guajardo LPN - 09/15/2022 10:16 AM EDT Patient has been identified by name and date of : Yes Type of form: Medical Necessity (received previous CMN but was incomplete) Form received via: Fax When form is completed, fax form to fax number provided. Form has been forwarded to: Nurse Rich Guajardo LPN documented in this encounterLakehealth Tripoint Medical Center10-28-2022 Miscellaneous Notes* Telephone Encounter - Millie Kaur APRN.TUNNELLER - 09/10/2022 9:16 AM EDT Called and spoke to patient's sister. Reports she took patient to ED last night and [facility] to [facility]. [facility] transit constipation and motility after admission. Sister verbalized understanding and agreed to plan. Millie Kaur APRN.CNP * Telephone Encounter - Laura Valentine - 09/09/2022 1:20 PM EDT Sister (Darrion [...] no BM's for awhile. documented in this encounterLakehealth Tripoint Medical Center10-24-2022 Miscellaneous Notes* Telephone Encounter - Kassy Kyle Ma - 09/06/2022 11:38 AM EDT VO given to kate at [facility] * Telephone Encounter - Yvette Mir APRN.CNP - 09/06/2022 10:16 AM EDT Agree. Yvette Mir APRN.CNP * Telephone Encounter - Mercy Noonan RN - 09/06/2022 10:03 AM EDT Kate from [facility] calls to report that physical therapy did not visit the patient on 09/03/2022 due to they needed insurance authorization. Kate asking for orders to omit that visit. Kate also asking for orders for physical therapy to do a 1 time visit for re-evaluation of physical therapy. Please review and advise, Mercy Noonan RN documented in this encounterLakehealth Tripoint Medical Center10-12-2022 Miscellaneous Notes* Telephone Encounter - Sarahy Monet - 08/25/2022 1:28 PM EDT Spoke with Darrion, patients sister and informed of results. She verbalized understanding. Sarahy Monet * Telephone Encounter - Lyndon Estes MD - 08/25/2022 12:49 PM EDT Platelets are up,likely due to recent infection. Sodium is better but still low. Recheck labs in one week documented in this encounterLakehealth Tripoint Medical Center10-11-2022 History of Present illness Narrative* Lyndon Estes [...] is doing well. SeeTCM noted. Discharged from [facility] on 08/14: Copied from [facility]: This 56 year-old white male seen in the emergency room at [facility] with complaints of fever and chills and [...] (HCC) Inguinal hernia left - imaging at [place] Sleep apnea Spina bifida (HCC) Urinary retention PAST SURGICAL HISTORY Procedure Laterality Date CRTJ SHUNT [id number] TERMINUS EGD W/O BRSH SPEC VARICIES INJ [...] up appt and prn documented in this encounterLakehealth Tripoint Medical Center10-06-2022 Miscellaneous Notes* Telephone Encounter - Kaylee Greenberg LPN - 08/19/2022 3:10 PM EDT Faxed as requested. * Telephone Encounter - Lyndon Estes MD - 08/19/2022 2:30 PM EDT Printed. * Telephone Encounter - Ave Mullins LPN - 08/19/2022 1:28 PM EDT Janie from [facility] Home Health OT returned call and said family wants order for standard manual wheel chair with elevating leg rests faxed to [facility] fax number is [phone]. Patient height is 63 inches and weight [...] 08/17/2022 1:47 PM EDT Janie OT from [facility] calls to report that she did only a one time visit. Janie states that patient is pretty much wheel chair bound. Patient wheel chair is old and torn withno cushion. Janie asking if provider can write a prescription for a new wheel chair and cushion. Please review and advise, Mercy Noonan RN documented in this encounterLakehealth Tripoint Medical Center10-05-2022 Miscellaneous Notes* Telephone Encounter - Juan Daniel Finn RN - 08/18/2022 4:09 PM EDT Stan PT- [facility], reporting POC: will see patient 2 x's week for 2 weeks, for lower extremity strengthening, ROM, transfers, and gait training. documented in this encounterLakehealth Tripoint Medical Center10-04-2022 History of Present illness Narrative* Rich Guajardo LPN - 08/17/2022 10:14 AM EDT TRANSITION CARE MANAGEMENT (TCM) INITIAL CONTACT Life Trainer Outreach Provider Action/FYI: Copied from [facility]: This 56 year-old white male seen in the emergency room at [facility] with complaints of fever and chills and [...] might be hidden SUMMARY: -Pt discharged from [facility] on 08/14/22. -Admitted for: UTI, hyponatremia Do [...] Requested from outside hospital documented in this encounterLakehealth Tripoint Medical Center09-29-2022 Miscellaneous Notes* Telephone Encounter - Kassy Kyle [...] View External Lab - Miscellaneous Lab [ID [id number]] Morenita Neil Ma documented in this encounterLakehealth Tripoint Medical Center09-28-2022 Miscellaneous Notes* Telephone Encounter - Daniela Nelson RN - 08/11/2022 9:13 AM EDT Serina SW with [facility] calls to let provider know that she planned to see patient in the home today to help complete advance directives--POA. Serina reports that patient is currently hospitalized at [facility] PCU and SW will assist patient with this while he is there. Serina reports she shouldn't need anyfurther SW visits in the home but will call back if that changes. Daniela Nelson RN documented in this encounterLakehealth Tripoint Medical Center09-27-2022 Miscellaneous Notes* Telephone Encounter - Kassy Kyle Ma - 08/10/2022 1:16 PM EDT VO given to Moriah from [facility] * Telephone Encounter - Juan Daniel Wolff PA-C - 08/10/2022 12:51 PM EDT Telephone on 08/10/22 URINALYSIS, REFLEX MICROSCOPIC URINE CULTURE Abnormal urine color (primary encounter diagnosis) Urinary catheter in place ThanksBrayan PA-C * Telephone Encounter - Ave Mullins LPN - 08/10/2022 10:22 AM EDT Moriah from [facility] Home Health calling patient caregiver has called her and said his urine color is much darker, he has bowman catheter chronically. She plans to go to home later this morning. She is askingfor orders for urine sample. Pending orders needs diagnosis. Please advise documented in this encounterLakehealth Tripoint Medical Center09-23-2022 Miscellaneous Notes* Telephone Encounter - Jane Wiggins RN - 08/06/2022 3:42 PM EDT Nhi nurse from [facility] called in and reports she was getting notifications that the Pt had been in the hospital from 07/20-07/23. I told her I didn't see in our system that the Pt had been. She saidshe couldn't pull any visits up either. documented in this encounterLakehealth Tripoint Medical Center09-22-2022 Miscellaneous Notes* Telephone Encounter - Morenita Neil Ma - 08/05/2022 11:29 AM EDT Returned call to [place], notified her of response from PCP, verbalized understanding. Morenita Neil Ma * Telephone Encounter - Lyndon Estes MD - 08/05/2022 10:24 AM EDT Ok to do * Telephone Encounter - Mercy Noonan RN - 08/05/2022 10:00 AM EDT Serina BAUTISTA from [facility] calls and asking for a verbal order for continued Social Work for 1 time for 2 weeks. Please give Serina a call back at with verbal order if agreeable. Mercy Noonan RN documented in this encounterLakehealth Tripoint Medical Center09-20-2022 Miscellaneous Notes* Telephone Encounter - Melodie Kim RN - 08/03/2022 11:58 AM EDT Shantelle, Nurse, notified of order. Meldoie Kim RN * Telephone Encounter - Yvette Mir APRN.CNP - 08/03/2022 11:48 AM EDT Okay to change catheter. Yvette Mir APRN.KAREN * Telephone Encounter - Melodie Kim RN - 08/03/2022 10:19 AM EDT Shantelle, a nurse with [facility] calling to state patient's daughter reports patient's catheter is leaking. Shantelle is planning to visit patient at this afternoon. She is asking for an order to change the catheter today, if provider agreeable- It was to be changed on 08/11. Please call Shantelle with order at [phone]. Thank you. documented in this encounterLakehealth Tripoint Medical Center09-19-2022 Miscellaneous Notes* Telephone Encounter - Lyndon Estes MD - 08/02/2022 3:15 PM EDT noted * Telephone Encounter - Juan Daniel Finn RN - 08/02/2022 2:43 PM EDT Janie- [facility] OT reporting POC- there was a delay of care waiting for insurance authorization. Plan to see patient 2 x's week for 2 weeks, then 1 x week for 1 week, for home exercise to improve transfers, and education for caregivers. Does not need a call back as long as pcp agrees. documented in this encounterLakehealth Tripoint Medical Center09-19-2022 Miscellaneous Notes* Telephone Encounter - Kaylee Greenberg LPN - 08/02/2022 11:27 AM EDT As requested this was printed in letters and sent to patient via mail. This was requested by [facility] office the day of visit. * Telephone Encounter - Lyndon Estes MD - 08/02/2022 8:41 AM EDT His labs are stable. Platelets are mildly up. Potassium is mildly up. Sodium is low but stable. Recheck labs in two weeks documented in this encounterLakehealth Tripoint Medical Center09-16-2022 History of Present illness Narrative* Lyndon Estes MD - 07/30/2022 3:39 PM EDT Patient presents with: Hospital F/U HPI: Patient presents today for office visit for hospital follow up. Bowel obstruction and UTI. Was in [facility] Admitted 07/21-07/25 DX:admitted with SBO, cystitis. Is [...] (HCC) Inguinal hernia left - imaging at [place] Sleep apnea Spina bifida (HCC) Urinary retention PAST SURGICAL HISTORY Procedure Laterality Date CRTJ SHUNT [id number] TERMINUS EGD W/O BRSH SPEC VARICIES INJ [...] - CBC + DIFF 4. 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 5. Spina bifida with hydrocephalus, unspecified spinal region (HCC) - ICD9: 741.00, ICD10: Q05.4 - stable. 6. Neurogenic bladder - ICD9: 596.54, ICD10: N31.9 7. Hyponatremia - ICD9: 276.1, ICD10: E87.1 - BASIC METABOLIC PNL Lyndon Estes RTO in six months and prn. documented in this encounterLakehealth Tripoint Medical Center09-16-2022 Miscellaneous Notes* Telephone Encounter - Lyndon Estes MD - 07/30/2022 3:22 PM EDT ok * Telephone Encounter - Ave Mullins LPN - 07/30/2022 3:15 PM EDT Barbara from [facility] calling with PT plan of care, 2 visits weekly for 3 weeks working on lower extremities range of motion, tone management, transfer and gait training, core strength. documented in this encounterLakehealth Tripoint Medical Center09-13-2022 Miscellaneous Notes* Telephone Encounter - Mercy Noonan RN - 07/27/2022 4:36 PM EDT Christiano from [facility] calls and states that she did receive orders from provider via detailed message. Patient needs nystatin powder prescription to be sent to [facility]. Please review and advise, Mercy Noonan RN documented in this encounterLakehealth Tripoint Medical Center09-13-2022 Miscellaneous Notes* Telephone Encounter - Diane Franco Ma - 07/27/2022 3:27 PM EDT Detailed message left on Cori's identified confidential VM. Dianebrenda Franco Ma * Telephone Encounter - Lyndon Estes MD - 07/27/2022 3:17 PM EDT Ok for all * Telephone Encounter - Jane Wiggins RN - 07/27/2022 2:45 PM EDT Janay SN with [facility] called in and reports they will see [...] that. Pleasecall and advise. documented in this encounterLakehealth Tripoint Medical Center09-12-2022 Miscellaneous Notes* Telephone Encounter - Rich Guajardo LPN - 07/26/2022 5:44 PM EDT TC to Marisabel left detailed message on secure identified voicemail. Marisabel only to return call to office /c any questions. Rich Guajardo LPN * Telephone Encounter - Lyndon Estes MD - 07/26/2022 5:09 PM EDT ok * Telephone Encounter - Dalia Floyd RN - 07/26/2022 4:45 PM EDT Marisabel, nurse @ [facility] calling to let PCP know patient was discharged from [facility] on 07/25 post hospitalization for ileus, SBO, gastroparesis, UTI. He has home health orders for nursing, PT/OT. Agree and willing to follow? Please call with verbal okay. # [phone]. Dalia Floyd RN documented in this encounterLakehealth [facility]09-02-2022 Instructions* Patient Instructions* Julita Sofia DO - [...] for treating the spasticity. documented in this encounterLakehealth Tripoint [facility] Center09-02-2022 History of Present illness Narrative* Julita Sofia DO - 07/16/2022 11:00 AM EDT Images from the original note were not included. [facility] for General [facility]rology Follow up/ Established patient visit Individuals who were included in, or assisted with the encounter were: Jian Sofia DO Chief Complaint/Issues: Jian Reuben Fuentes is a 56 year old male seen in the [facility] for General Neurology for: Spasticity or b/l UE and LE, neurogenic bladder, bowel dysfunction. Multiple surgeries through the years to his legs, wheelchair bound with catheter Diagnosis/Issues: Relevant Medical Issues: 1. Hydrocephalus s/p FALSEWORK BUILDER shunt 2. Spina bifida 3. Spastic paraparesis with neurogenic bladder, SBO in 04/2022 and right head tilt Current Treatment and Relevant Treatment History: 1. baclofen 07/08/2022 2. referred to spasticity clinic for botox evaluation Follows with urology and GI Imaging/Studies/Labs: No OIL FIRE SPECIALIST imaging Most Recent Neurological Assessment and Plan: [...] of these symptoms since last visit. His raudel -last shunt check by neurosurgery is 2014 [...] Plan 07/16/2022 - General Neurology, Julita Sofia, ASSESSMENT Patient is 56 yo male with a history of spina bifida with hydrocephalus s/p FALSEWORK BUILDER shunt placed at who presents for followup [...] (Hcc) Urinary Retention Sbo (Small Bowel Obstruction) (Hcc) PAST MEDICAL HISTORY Diagnosis Date Bowel dysfunction Constipation Hydrocephalus (HCC) Inguinal hernia left - imaging at [place] Sleep apnea Spina bifida (HCC) Urinary retention PAST SURGICAL HISTORY Procedure Laterality Date CRTJ SHUNT [id number] TERMINUS PAST SURGICAL HISTORY OF repair of [...] ED PATIENT INFORMATION Result Value Ref Range Hvac Sheet Metal Installer Provider DALILA your patient JIAN FUENTES has been assigned their Irene program. The date to complete this order is 07-19-2022 The Irene program is: PATIENT SAFETY AND FALL PREVENTION The patient access code to view the Irene program is: [id number] To view the Irene program go to: [email or web address] Patient-Entered Data: 07/11/22 - GENERAL NEUROLOGY SCORES No flowsheet data found. Depression Screening 09/06/2016 08/22/2018 PHQ-2 Score 2 0 No flowsheet data found. No flowsheet data found. No flowsheet data found. I spent a total of 35 minutes on the date of the service which included preparing to see the patient, [id number] patient care, completing clinical documentation, obtaining and/or reviewing separately obtained history, performing a medically appropriate examination, counseling and educating the pat ient/family/caregiver, ordering medications, tests, or procedures, independently interpreting results (not separately reported), and care coordination (not separately reported). Julita Sofia DO documented in this encounterLakehealth [facility]point [facility] Center07-29-2022 Instructions* Patient Instructions* Millie Kaur APRN.CNP - 06/11/2022 4:18 PM EDT PLAN - Trial increase Linzess 145mcg daily. - 2 kiwi fruit/day - Follow up 6 months. documented in this encounterLakehealth Tripoint Medical Center07-29-2022 History of Present illness Narrative* Millie Kaur APRN.CNP - 06/11/2022 4:07 PM EDT Jian [...] fruit/day - Follow up 6 months. Millie Kaur APRN.TUNNELLER June 11, 2022 4:08 PM documented in this encounterLakehealth Tripoint [facility] Center07-19-2022 History of Present illness Narrative* Mabel Lopez [...] planned. Mabel Lopez LPN documented in this encounterLakehealth Tripoint [facility] Center06-17-2022 History of Present illness Narrative* Blaire Pandey [...] care. Blaire Pandey RN documented in this encounterLakehealth Tripoint Medical Center06-14-2022 Miscellaneous Notes* Telephone Encounter - Kassy Kyle Ma - 04/27/2022 12:13 PM EDT Order faxed * Telephone Encounter - Kassy Kyle Ma - 04/27/2022 11:[address] referral then will fax to [phone] Spoke with Enedina, then her banana ripening room supervisor Hiral, they will try to get one out to him. * Telephone Encounter - Lyndon Estes MD - 04/27/2022 11:39 AM EDT Are we able to have the agencies transition social worker see him? * Telephone Encounter - Ave Mullins LPN - 04/27/2022 10:02 AM EDT Enedina from [facility] calling she opened patient case on 04/22. [...] cars and old mobile homes, [facility]. She said sister helps him bathe at [...] seen conditions like this. documented in this encounterLakehealth [facility] Center06-10-2022 Miscellaneous Notes* Telephone Encounter - Makenna Gonzalez RN - 04/23/2022 2:57 PM EDT PATIENT INFORMATION Record ID: [id number] Patient Name: Eleanor Slater [facility]: [facility] [place]: [facility] [place] Attending: Francisca Jensen Center: General Surgery INSTRUCTIONS Continue with script and ensure patient has number or is given number to appointment center [phone] All Clear All Clear SURVEY INFORMATION Medical/Nurse Blood Bank Order Control Clerk: Makenna Gonzalez 1. Your discharge instructions are [...] symptoms? (Standard Question) No documented in this encounterLakehealth Tripoint Medical Center06-10-2022 Miscellaneous Notes* Telephone Encounter - Rich Guajardo LPN - 04/23/2022 11:15 AM EDT TC hazel Wolf, detailed message left on secure identified voicemail. Rich Guajardo LPN * Telephone Encounter - Lyndon Estes MD - 04/23/2022 11:05 AM EDT Ok to start * Telephone Encounter - Jane Wiggins RN - 04/23/2022 9:30 AM EDT Maraynn from [facility] will be faxing an order to provider at [phone]. This is for verbal for start of care for PT evaluation and treatment date 04/20/22. She states they will have a fax number on the paper for provider to send back to, she said to just put Attn: Penelope. documented in this encounterLakehealth [facility]point Medical Center06-07-2022 Miscellaneous Notes* Telephone Encounter - Katiana Loera LPN - 04/20/2022 3:07 PM EDT CONFIRMATION CALL a. Date and Time: 3:08 PM 04/20/2022 b. Contact name/relationship: Spoke with patients sister DARRION and she said [facility] will be providinghomecare at this time. I told her if any problems please call. Katiana Loera LPN documented in this encounterLakehealth [facility]point [facility] Center05-20-2022 Miscellaneous Notes* Telephone Encounter - Mabel Quiñones [...] office. Joana Quiñones RN documented in this encounterLakehealth [facility]point [facility] Center05-18-2022 Miscellaneous Notes* Telephone Encounter - Juvenal Henry MD - 03/31/2022 6:24 PM EDT Updated Nurse on-Call: Paged by RN re: Mr. Jian Fuentes, a 56 yo man w/PMH s/f spina bifida with hydrocephalus s/p FALSEWORK BUILDER shunt placed at , spastic paraparesis, and [...] as well. Juvenal Henry MD PGY-2, Neurology [phone] 6:32 PM, March 31, 2022 documented in this encounterLakehealth Tripoint [facility] Center05-18-2022 Miscellaneous Notes* Telephone Encounter - Chriss Bradford [...] were reviewed, (see list,) no new allergies [facility] pharmacy in [place], Paged the doctor special education resource room teacher for Dr Sofia, and Dr Juvenal Henry [...] 8a.m. tomorrow morning. (Dr Sofia's office phone [phone]) documented in this encounterLakehealth [facility]point [facility] Center05-17-2022 Miscellaneous Notes* Telephone Encounter - Mabel Quiñones RN - 03/30/2022 1:37 PM EDT Refused refill request again as no longer under providers care. Joana Quiñones RN documented in this encounterLakehealth [facility] Center05-12-2022 Miscellaneous Notes* Telephone Encounter - Mabel Quiñones RN - 03/25/2022 4:58 PM EDT Refill request refused due to MIGNON 09/19/20. Jaona Quiñones RN * Telephone Encounter - Mabel [...] three times daily. CARINE: No Pharmacy Name: [facility] Pharmacy Phone #: [phone] Paco Hawkins documented in this encounterLakehealth [facility]point [facility] Center05-05-2022 Miscellaneous Notes* Telephone Encounter - Laura Perez Sec - 03/18/2022 9:47 AM EDT Forwarding script request to covering provider for approval; in lieu of Millie's absence. documented in this encounterLakehealth Tripoint Medical Center04-22-2022 History of Present illness Narrative* RT Eitan(Lamont) - 03/05/2022 4:00 PM EDT Radiology Service [...] 05, 2022 4:34 PM documented in this encounterLakehealth Tripoint Medical Center04-06-2022 Miscellaneous Notes* Telephone Encounter - Laura Jacobo RN - 02/17/2022 11:46 AM EDT Will have patient contact schedulers to schedule appointments. * Telephone Encounter - Keisha Allen Pss - 02/17/2022 11:15 AM EDT [facility] wants to know if they can schedule CT while they are here want a call back form Laura. 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 Soto and Dr. Ramso for neurogenic bladder Last seen in March [...] stones. Marcelo Prince MD documented in this encounterCleveland [phone] Miscellaneous Notes* Telephone Encounter - Laura Jacobo RN - 02/16/2022 9:20 AM EDT Message sent to schedulers. * Telephone Encounter - Keisha Allen Pss - 02/16/2022 8:55 AM EDT Sister wants a call back to schedule CT with the Clinic for the patient documented in this encounterLakehealth [facility]point [facility] Center04-05-2022 Miscellaneous Notes* Telephone Encounter - Laura Perez Sec - 02/16/2022 8:49 AM EDT Patient's sister called stating that he's completely out of his Linzess medication. Can refills be added this time please? Forwarding script request to covering provider for approval; in lieu of Millie's absence. documented in this encounterLakehealth [facility] Center04-05-2022 Miscellaneous Notes* Telephone Encounter - Laura Jacobo [...] wants a call back. documented in this encounterLakehealth [facility]point [facility] Center04-01-2022 History of Present illness Narrative* Mabel Lopez LPN - 02/12/2022 10:49 AM EDT CC Bowman catheter in Place HPI: Jian Fuentes is a 56 year old male. The patient is here now for a bowman catheter change. Darrion, patients sister/caregiver, reports that bowman catheter last changed at [facility] on 01/10/2022. Procedure: Performed a catheter change. [...] planned. Mabel Lopez LPN documented in this encounterLakehealth Tripoint [facility] Center03-22-2022 History of Present illness Narrative* Lamont Eller MD - 02/02/2022 2:11 PM EDT Consultation requested by Self for an opinion regarding Jian Fuentes, who presents today for recurrent SBO.. My final recommendations will be communicated back to the requesting physician byway of shared Medical record or letter to requesting physician via US mail. [facility] STAFF PHYSICIAN NOTE OF PERSONAL INVOLVEMENT IN [...] last episode 2 weeks ago, prior in Jul. prior abdominal surgery. now back to normal. PMHx per resident including FALSEWORK BUILDER shunt. PLAN: options of surgery now vs waiting for recurrent sx discussed. will repeat imaging now and decide. CT with PO contrast only. Medical Decision Making Daniel Eller MD Date of Service: February 02, 2022 Time of Service: 2:22 PM documented in this encounterLakehealth Tripoint Medical Center03-22-2022 History and physical note * Nicho Jimenes MD - 02/02/2022 2:08 PM EDT SURGICAL SERVICES HISTORY AND PHYSICAL EXAMINATION SERVICE DATE: 02/02/2022 SERVICE TIME: 2:08 PM PRIMARY CARE PHYSICIAN: Lyndon Estes MD SUBJECTIVE CHIEF COMPLAINT: Small bowel obstruction HISTORY OF PRESENT ILLNESS: Mr. Fuentes is a 56 year old male with a PMHx of spina bifida, hydrocephalus s/p FALSEWORK BUILDER shunt and dysmotility requiring regular suppositories and [...] (HCC) Inguinal hernia left - imaging at [place] Sleep apnea Spina bifida (HCC) Urinary retention PAST SURGICAL HISTORY: PAST SURGICAL HISTORY Procedure Laterality Date CRTJ SHUNT [id number] TERMINUS PAST SURGICAL HISTORY OF repair of [...] hypertension, CHF or palpitations GI: See HPI LIGHT CLEANER: Negative for abnormal vaginal bleeding, abnormal vaginal [...] Jimenes MD PGY-2 General Surgery Resident Pager: [phone] 02/02/2022 documented in this encounterLakehealth Tripoint Medical Center03-14-2022 Miscellaneous Notes* Telephone Encounter - Marcela Rowland LPN - 01/25/2022 2:45 PM EDT Called patient to gather medical record info. Patient voicemail not set up Spoke with patient sister, records at [facility]. Records requested 01/26/22 documented in this encounterLakehealth Tripoint Medical Center03-21-2008 History of Past illness Narrative* Problem Noted Date Resolved Date CP (CEREBRAL PALSY - INFANTILE) HEMIPLEGIA, TESFAYE ENITAL 02/02/2008 05/22/2013 documented as of this encounter (statuses as of 02/03/2022) [facility] History of Past illness Narrative* Problem Noted Date Resolved Date CP (CEREBRAL PALSY - INFANTILE) HEMIPLEGIA, TESFAYE ENITAL 02/02/2008 05/22/2013 documented as of this encounter (statuses as of 02/04/2022) [facility]03[facility] History of Past illness Narrative* Problem Noted Date Resolved Date CP (CEREBRAL PALSY - INFANTILE) HEMIPLEGIA, TESFAYE ENITAL 02/02/2008 05/22/2013 documented as of this encounter (statuses as of 02/12/2022) [facility] of Past illness Narrative* Problem Noted Date Resolved Date CP (CEREBRAL PALSY - INFANTILE) HEMIPLEGIA, TESFAYE ENITAL 02/02/2008 05/22/2013 documented as of this encounter (statuses as of 02/16/2022) [facility] of Past illness Narrative* Problem Noted Date Resolved Date CP (CEREBRAL PALSY - INFANTILE) HEMIPLEGIA, TESFAYE ENITAL 02/02/2008 05/22/2013 documented as of this encounter (statuses as of 02/17/2022) [facility] of Past illness Narrative* Problem Noted Date Resolved Date CP (CEREBRAL PALSY - INFANTILE) HEMIPLEGIA, TESFAYE ENITAL 02/02/2008 05/22/2013 documented as of this encounter (statuses as of 02/17/2022) [facility] of Past illness Narrative* Problem Noted Date Resolved Date CP (CEREBRAL PALSY - INFANTILE) HEMIPLEGIA, TESFAYE ENITAL 02/02/2008 05/22/2013 documented as of this encounter (statuses as of 02/18/2022) [address]21-2008 History of Past illness Narrative* Problem Noted Date Resolved Date CP (CEREBRAL PALSY - INFANTILE) HEMIPLEGIA, TESFAYE ENITAL 02/02/2008 05/22/2013 documented as of this encounter (statuses as of 02/22/2022) [address]21-2008 History of Past illness Narrative* Problem Noted Date Resolved Date CP (CEREBRAL PALSY - INFANTILE) HEMIPLEGIA, TESFAYE ENITAL 02/02/2008 05/22/2013 documented as of this encounter (statuses as of 03/04/2022) [address]21-2008 History of Past illness Narrative* Problem Noted Date Resolved Date CP (CEREBRAL PALSY - INFANTILE) HEMIPLEGIA, TESFAYE ENITAL 02/02/2008 05/22/2013 documented as of this encounter (statuses as of 03/06/2022) [address]21-2008 History of Past illness Narrative* Problem Noted Date Resolved Date CP (CEREBRAL PALSY - INFANTILE) HEMIPLEGIA, TESFAYE ENITAL 02/02/2008 05/22/2013 documented as of this encounter (statuses as of 03/06/2022) [address]21-2008 History of Past illness Narrative* Problem Noted Date Resolved Date CP (CEREBRAL PALSY - INFANTILE) HEMIPLEGIA, TESFAYE ENITAL 02/02/2008 05/22/2013 documented as of this encounter (statuses as of 03/18/2022) [address]21-2008 History of Past illness Narrative* Problem Noted Date Resolved Date CP (CEREBRAL PALSY - INFANTILE) HEMIPLEGIA, TESFAYE ENITAL 02/02/2008 05/22/2013 documented as of this encounter (statuses as of 03/25/2022) [address]21-2008 History of Past illness Narrative* Problem Noted Date Resolved Date CP (CEREBRAL PALSY - INFANTILE) HEMIPLEGIA, TESFAYE ENITAL 02/02/2008 05/22/2013 documented as of this encounter (statuses as of 03/30/2022) [address]21-2008 History of Past illness Narrative* Problem Noted Date Resolved Date CP (CEREBRAL PALSY - INFANTILE) HEMIPLEGIA, TESFAYE ENITAL 02/02/2008 05/22/2013 documented as of this encounter (statuses as of 03/31/2022) [address]21-2008 History of Past illness Narrative* Problem Noted Date Resolved Date CP (CEREBRAL PALSY - INFANTILE) HEMIPLEGIA, TESFAYE ENITAL 02/02/2008 05/22/2013 documented as of this encounter (statuses as of 04/07/2022) [address]21-2008 History of Past illness Narrative* Problem Noted Date Resolved Date CP (CEREBRAL PALSY - INFANTILE) HEMIPLEGIA, TESFAYE ENITAL 02/02/2008 05/22/2013 documented as of this encounter (statuses as of 04/20/2022) [address]21-2008 History of Past illness Narrative* Problem Noted Date Resolved Date CP (CEREBRAL PALSY - INFANTILE) HEMIPLEGIA, TESFAYE ENITAL 02/02/2008 05/22/2013 documented as of this encounter (statuses as of 04/22/2022) [address]21-2008 History of Past illness Narrative* Problem Noted Date Resolved Date CP (CEREBRAL PALSY - INFANTILE) HEMIPLEGIA, TESFAYE ENITAL 02/02/2008 05/22/2013 documented as of this encounter (statuses as of 04/23/2022) [address]21-2008 History of Past illness Narrative* Problem Noted Date Resolved Date CP (CEREBRAL PALSY - INFANTILE) HEMIPLEGIA, TESFAYE ENITAL 02/02/2008 05/22/2013 documented as of this encounter (statuses as of 04/27/2022) [address]21-2008 History of Past illness Narrative* Problem Noted Date Resolved Date CP (CEREBRAL PALSY - INFANTILE) HEMIPLEGIA, TESFAYE ENITAL 02/02/2008 05/22/2013 documented as of this encounter (statuses as of 04/30/2022) [address]21-2008 History of Past illness Narrative* Problem Noted Date Resolved Date CP (CEREBRAL PALSY - INFANTILE) HEMIPLEGIA, TESFAYE ENITAL 02/02/2008 05/22/2013 documented as of this encounter (statuses as of 06/01/2022) [address]21-2008 History of Past illness Narrative* Problem Noted Date Resolved Date CP (CEREBRAL PALSY - INFANTILE) HEMIPLEGIA, TESFAYE ENITAL 02/02/2008 05/22/2013 documented as of this encounter (statuses as of 06/14/2022) [address]21-2008 History of Past illness Narrative* Problem Noted Date Resolved Date CP (CEREBRAL PALSY - INFANTILE) HEMIPLEGIA, TESFAYE ENITAL 02/02/2008 05/22/2013 documented as of this encounter (statuses as of 07/16/2022) [facility] Narrative* Problem Noted Date Resolved Date CP (CEREBRAL PALSY - INFANTILE) HEMIPLEGIA, TESFAYE ENITAL 02/02/2008 05/22/2013 documented as of this encounter (statuses as of 07/26/2022) [facility] Narrative* Problem Noted Date Resolved Date CP (CEREBRAL PALSY - INFANTILE) HEMIPLEGIA, TESFAYE ENITAL 02/02/2008 05/22/2013 documented as of this encounter (statuses as of 07/27/2022) [facility] Narrative* Problem Noted Date Resolved Date CP (CEREBRAL PALSY - INFANTILE) HEMIPLEGIA, TESFAYE ENITAL 02/02/2008 05/22/2013 documented as of this encounter (statuses as of 07/30/2022) [facility] Narrative* Problem Noted Date Resolved Date CP (CEREBRAL PALSY - INFANTILE) HEMIPLEGIA, TESFAYE ENITAL 02/02/2008 05/22/2013 documented as of this encounter (statuses as of 07/30/2022) [facility] Narrative* Problem Noted Date Resolved Date CP (CEREBRAL PALSY - INFANTILE) HEMIPLEGIA, TESFAYE ENITAL 02/02/2008 05/22/2013 documented as of this encounter (statuses as of 08/02/2022) [facility] Narrative* Problem Noted Date Resolved Date CP (CEREBRAL PALSY - INFANTILE) HEMIPLEGIA, TESFAYE ENITAL 02/02/2008 05/22/2013 documented as of this encounter (statuses as of 08/02/2022) [facility] Narrative* Problem Noted Date Resolved Date CP (CEREBRAL PALSY - INFANTILE) HEMIPLEGIA, TESFAYE ENITAL 02/02/2008 05/22/2013 documented as of this encounter (statuses as of 08/03/2022) [facility] Narrative* Problem Noted Date Resolved Date CP (CEREBRAL PALSY - INFANTILE) HEMIPLEGIA, TESFAYE ENITAL 02/02/2008 05/22/2013 documented as of this encounter (statuses as of 08/05/2022) [address]21-2008 History of Past illness Narrative* Problem Noted Date Resolved Date CP (CEREBRAL PALSY - INFANTILE) HEMIPLEGIA, TESFAYE ENITAL 02/02/2008 05/22/2013 documented as of this encounter (statuses as of 08/06/2022) [address]21-2008 History of Past illness Narrative* Problem Noted Date Resolved Date CP (CEREBRAL PALSY - INFANTILE) HEMIPLEGIA, TESFAYE ENITAL 02/02/2008 05/22/2013 documented as of this encounter (statuses as of 08/10/2022) [address]21-2008 History of Past illness Narrative* Problem Noted Date Resolved Date CP (CEREBRAL PALSY - INFANTILE) HEMIPLEGIA, TESFAYE ENITAL 02/02/2008 05/22/2013 documented as of this encounter (statuses as of 08/19/2022) [address]21-2008 History of Past illness Narrative* Problem Noted Date Resolved Date CP (CEREBRAL PALSY - INFANTILE) HEMIPLEGIA, TESFAYE ENITAL 02/02/2008 05/22/2013 documented as of this encounter (statuses as of 08/20/2022) [address]21-2008 History of Past illness Narrative* Problem Noted Date Resolved Date CP (CEREBRAL PALSY - INFANTILE) HEMIPLEGIA, TESFAYE ENITAL 02/02/2008 05/22/2013 documented as of this encounter (statuses as of 08/24/2022) [address]21-2008 History of Past illness Narrative* Problem Noted Date Resolved Date CP (CEREBRAL PALSY - INFANTILE) HEMIPLEGIA, TESFAYE ENITAL 02/02/2008 05/22/2013 documented as of this encounter (statuses as of 08/25/2022) [address]21-2008 History of Past illness Narrative* Problem Noted Date Resolved Date CP (CEREBRAL PALSY - INFANTILE) HEMIPLEGIA, TESFAYE ENITAL 02/02/2008 05/22/2013 documented as of this encounter (statuses as of 09/01/2022) [address]21-2008 History of Past illness Narrative* Problem Noted Date Resolved Date CP (CEREBRAL PALSY - INFANTILE) HEMIPLEGIA, TESFAYE ENITAL 02/02/2008 05/22/2013 documented as of this encounter (statuses as of 09/06/2022) [address]21-2008 History of Past illness Narrative* Problem Noted Date Resolved Date CP (CEREBRAL PALSY - INFANTILE) HEMIPLEGIA, TESFAYE ENITAL 02/02/2008 05/22/2013 documented as of this encounter (statuses as of 09/10/2022) [address]21-2008 History of Past illness Narrative* Problem Noted Date Resolved Date CP (CEREBRAL PALSY - INFANTILE) HEMIPLEGIA, TESFAYE ENITAL 02/02/2008 05/22/2013 documented as of this encounter (statuses as of 09/22/2022) [address]21-2008 History of Past illness Narrative* Problem Noted Date Resolved Date CP (CEREBRAL PALSY - INFANTILE) HEMIPLEGIA, TESFAYE ENITAL 02/02/2008 05/22/2013 documented as of this encounter (statuses as of 09/30/2022) [address]21-2008 History of Past illness Narrative* Problem Noted Date Resolved Date CP (CEREBRAL PALSY - INFANTILE) HEMIPLEGIA, TESFAYE ENITAL 02/02/2008 05/22/2013 documented as of this encounter (statuses as of 10/04/2022) [address]21-2008 History of Past illness Narrative* Problem Noted Date Resolved Date CP (CEREBRAL PALSY - INFANTILE) HEMIPLEGIA, TESFAYE ENITAL 02/02/2008 05/22/2013 documented as of this encounter (statuses as of 10/05/2022) [address]21-2008 History of Past illness Narrative* Problem Noted Date Resolved Date CP (CEREBRAL PALSY - INFANTILE) HEMIPLEGIA, TESFAYE ENITAL 02/02/2008 05/22/2013 documented as of this encounter (statuses as of 10/06/2022) [address]21[address] History of Past illness Narrative* Problem Noted Date Resolved Date CP (CEREBRAL PALSY - INFANTILE) HEMIPLEGIA, TESFAYE ENITAL 02/02/2008 05/22/2013 documented as of this encounter (statuses as of 10/11/2022) [address]21-2008 History of Past illness Narrative* Problem Noted Date Resolved Date CP (CEREBRAL PALSY - INFANTILE) HEMIPLEGIA, TESFAYE ENITAL 02/02/2008 05/22/2013 documented as of this encounter (statuses as of 10/12/2022) [address]21-2008 History of Past illness Narrative* Problem Noted Date Resolved Date CP (CEREBRAL PALSY - INFANTILE) HEMIPLEGIA, TESFAYE ENITAL 02/02/2008 05/22/2013 documented as of this encounter (statuses as of 10/13/2022) [facility]03-21-2008 History of Past illness Narrative* Problem Noted Date Resolved Date CP (CEREBRAL PALSY - INFANTILE) HEMIPLEGIA, TESFAYE ENITAL 02/02/2008 05/22/2013 documented as of this encounter (statuses as of 10/15/2022) [facility]03-21-2008 History of Past illness Narrative* Problem Noted Date Resolved Date CP (CEREBRAL PALSY - INFANTILE) HEMIPLEGIA, TESFAYE ENITAL 02/02/2008 05/22/2013 documented as of this encounter (statuses as of 10/22/2022) [facility]03-21-2008 History of Past illness Narrative* Problem Noted Date Resolved Date CP (CEREBRAL PALSY - INFANTILE) HEMIPLEGIA, TESFAYE ENITAL 02/02/2008 05/22/2013 documented as of this encounter (statuses as of 11/03/2022) [facility]03-21-2008 History of Past illness Narrative* Problem Noted Date Resolved Date CP (CEREBRAL PALSY - INFANTILE) HEMIPLEGIA, TESFAYE ENITAL 02/02/2008 05/22/2013 documented as of this encounter (statuses as of 12/16/2022) [facility]21-2008 History of Past illness Narrative* Problem Noted Date Resolved Date CP (CEREBRAL PALSY - INFANTILE) HEMIPLEGIA, TESFAYE ENITAL 02/02/2008 05/22/2013 documented as of this encounter (statuses as of 12/16/2022) [facility]21-2008 History of Past illness Narrative* Problem Noted Date Resolved Date CP (CEREBRAL PALSY - INFANTILE) HEMIPLEGIA, TESFAYE ENITAL 02/02/2008 05/22/2013 documented as of this encounter (statuses as of 12/17/2022) [facility]-2008 History of Past illness Narrative* Problem Noted Date Resolved Date CP (CEREBRAL PALSY - INFANTILE) HEMIPLEGIA, TESFAYE ENITAL 02/02/2008 05/22/2013 documented as of this encounter (statuses as of 12/21/2022) [facility]2008 History of Past illness Narrative* Problem Noted Date Resolved Date CP (CEREBRAL PALSY - INFANTILE) HEMIPLEGIA, TESFAYE ENITAL 02/02/2008 05/22/2013 documented as of this encounter (statuses as of 01/28/2023) [address]21-2008 History of Past illness Narrative* Problem Noted Date Resolved Date CP (CEREBRAL PALSY - INFANTILE) HEMIPLEGIA, TESFAYE ENITAL 02/02/2008 05/22/2013 documented as of this encounter (statuses as of 02/12/2023) [address]21-2008 History of Past illness Narrative* Problem Noted Date Resolved Date CP (CEREBRAL PALSY - INFANTILE) HEMIPLEGIA, TESFAYE ENITAL 02/02/2008 05/22/2013 documented as of this encounter (statuses as of 02/15/2023) [address]21-2008 History of Past illness Narrative* Problem Noted Date Resolved Date CP (CEREBRAL PALSY - INFANTILE) HEMIPLEGIA, TESFAYE ENITAL 02/02/2008 05/22/2013 documented as of this encounter (statuses as of 02/16/2023) [address]21-2008 History of Past illness Narrative* Problem Noted Date Resolved Date CP (CEREBRAL PALSY - INFANTILE) HEMIPLEGIA, TESFAYE ENITAL 02/02/2008 05/22/2013 documented as of this encounter (statuses as of 02/17/2023) [address]21-2008 History of Past illness Narrative* Problem Noted Date Resolved Date CP (CEREBRAL PALSY - INFANTILE) HEMIPLEGIA, TESFAYE ENITAL 02/02/2008 05/22/2013 documented as of this encounter (statuses as of 02/18/2023) [address]21-2008 History of Past illness Narrative* Problem Noted Date Resolved Date CP (CEREBRAL PALSY - INFANTILE) HEMIPLEGIA, TESFAYE ENITAL 02/02/2008 05/22/2013 documented as of this encounter (statuses as of 02/26/2023) [address]21-2008 History of Past illness Narrative* Problem Noted Date Resolved Date CP (CEREBRAL PALSY - INFANTILE) HEMIPLEGIA, TESFAYE ENITAL 02/02/2008 05/22/2013 documented as of this encounter (statuses as of 03/09/2023) [address]21-2008 History of Past illness Narrative* Problem Noted Date Resolved Date CP (CEREBRAL PALSY - INFANTILE) HEMIPLEGIA, TESFAYE ENITAL 02/02/2008 05/22/2013 documented as of this encounter (statuses as of 03/10/2023) [facility]-2008 History of Past illness Narrative* Problem Noted Date Resolved Date CP (CEREBRAL PALSY - INFANTILE) HEMIPLEGIA, TESFAYE ENITAL 02/02/2008 05/22/2013 documented as of this encounter (statuses as of 03/10/2023) [facility] note* Diagnosis Small bowel obstruction (HCC)- Primary Unspecified intestinal obstruction documented in this encounter [facility] note* Diagnosis Urinary retention- Primary Retention of urine, unspecified documented in this encounter [facility] note* Diagnosis Calculus of urinary bladder documented in this encounter [facility] note* Diagnosis Chronic constipation Unspecified constipation documented in this encounter [facility] note* Diagnosis Screening for genitourinary condition Screening for other and unspecified genitourinary condition documented in this encounter [facility] note* Diagnosis Small bowel obstruction (HCC) Unspecified intestinal obstruction Urinary retention Retention of urine, unspecified documented in this encounter [facility] note* Diagnosis Chronic constipation Unspecified constipation documented in this encounter [facility] note* Diagnosis Spina bifida with hydrocephalus, unspecified spinal region (HCC)- Primary documented in this encounter [facility] note* Diagnosis Neurogenic bladder- Primary Neurogenic bladder, NOS documented in this encounter [facility] note* Diagnosis Neurogenic bladder- Primary Neurogenic bladder, NOS documented in this encounter [facility] note* Diagnosis Chronic constipation- Primary Unspecified constipation documented in this encounter [facility] note* Diagnosis Spina bifida with hydrocephalus, unspecified spinal region (HCC)- Primary Acquired deformity of ankle and foot, unspecified laterality Neurogenic bladder Neurogenic bladder, NOS SBO (small bowel obstruction) (HCC) Unspecified intestinal obstruction Congenital hydrocephalus (HCC) Congenital hydrocephalus History of brain shunt documented in this encounter [facility] note* Diagnosis SBO (small bowel obstruction) (HCC)- [...] dermatitis Dermatomycosis, unspecified [facility] Thrombocytosis- Primary Essential thrombocythemia Hyperkalemia Hyperpotassemia [facility] Diagnosis Abnormal urine color- Primary Other nonspecific finding on examination of urine Urinary catheter in place Other postprocedural status [facility] Diagnosis Spina bifida with hydrocephalus, unspecified spinal region (HCC)- Primary Congenital hydrocephalus (HCC) Congenital hydrocephalus [facility] Diagnosis Urinary tract infection without hematuria, site unspecified- Primary Hyponatremia Hyposmolality and/or hyponatremia Urinary catheter in place Other postprocedural status Neurogenic bladder Neurogenic bladder, NOS Spina bifida with hydrocephalus, unspecified spinal region (HCC) [facility] Diagnosis Thrombocytosis- Primary Essential thrombocythemia Hyponatremia Hyposmolality and/or hyponatremia [facility] Diagnosis Chronic constipation- Primary Unspecified constipation Spina bifida with hydrocephalus, unspecified spinal region (HCC) Redundant colon Other congenital anomalies of intestine History of small bowel obstruction Personal history of other diseases of digestive system [facility] Diagnosis Neurogenic bladder- Primary Neurogenic bladder, NOS [facility] Diagnosis Screening for genitourinary condition Screening for other and unspecified genitourinary condition [facility] Diagnosis Renal insufficiency- Primary Unspecified disorder of kidney and ureter [facility] Diagnosis Acute pseudo-obstruction of bowel- Primary Other specified intestinal obstruction Gastroparesis Spina bifida with hydrocephalus, unspecified spinal region (HCC) Hypokalemia Hypopotassemia [facility] Diagnosis Hyponatremia- Primary Hyposmolality and/or hyponatremia [facility] Diagnosis Hyponatremia- Primary Hyposmolality and/or hyponatremia [facility] Diagnosis Constipation, unspecified constipation type- Primary Redundant colon Other congenital anomalies of intestine H/O small bowel obstruction Personal history of other diseases of digestive system Spina bifida with hydrocephalus, unspecified spinal region (HCC) Neurogenic bladder Neurogenic bladder, NOS [facility] Diagnosis Hydrocephalus, unspecified type (HCC)- Primary [...] Thrombocytosis Essential thrombocythemia [facility] Diagnosis Hyponatremia- Primary Hyposmolality and/or hyponatremia [facility] Diagnosis Spina bifida with hydrocephalus, unspecified spinal region (HCC) documented in this encounter [facility] Summary Purpose Family History No Family History Records FoundNo Family History Records FoundNo Family History Records Found Advance Directives No Advanced Directives Records FoundDocuments on File Type Date Recorded 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 Advance Directive(s) 03/27/2021 1:27 PM Advance Directive(s) 02/18/2021 9:25 AM Documents on File Type Date Recorded 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 Advance Directive(s) 03/27/2021 1:27 PM Advance Directive(s) 02/18/2021 9:25 AM Documents on File Type Date Recorded 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 Advance Directive(s) 04/14/2022 6:51 PM Advance Directive(s) 03/27/2021 1:27 PM Advance Directive(s) 02/18/2021 9:25 AM Documents on File Type Date Recorded 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 Advance Directive(s) 04/04/2023 7:49 PM Documents on File Type Date Recorded 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 Advance Directive(s) 04/04/2023 7:49 PM Reason for Referral Specialty Diagnoses / Procedures Referred By Rose Marie neri Referred To Contact CT IMAGING Diagnoses Small bowel obstruction (HCC) Procedures CT ABD/PEL WO IVCON CT ABD & P[place] [address] [place] [address] Ct Imaging Referral ID Status Reason Start Date Expiration Date Visits Requested Visits Authorized [id number] Authorized Auto-Generat ed Referral 03/05/2022 03/04/2023 1 1 Specialty Diagnoses / Procedures Referred By Contac t Referred To Contact CT IMAGING Diagnoses Calculus of urinary bladder Procedures CT FLANK WO IVCON CT ABD & PELVIS W/O CONTRAST Marcelo Prince MD [address] [place] [address] Ct Imaging Referral ID Status Reason Start Date Expiration Date Visits Requested Visits Authorized [id number] Pending Review Auto-Generat ed Referral 02/26/2022 03/19/2023 1 1 Referral ID Status Reason Start Date Expiration Date V isits Requested Visits Authorized [id number] Closed Auto-Generate d Referral 03/05/2022 03/04/2023 1 1 Specialty Diagnoses / Procedures Referred By Contac t Referred To Contact [facility] Diagnoses Spina bifida with hydrocephalus, unspecified spinal region (HCC) Procedures CONSULT TO PHYSICAL MEDICINE AND REHABILITATION OFFICE/OUTPATIENT [facility] 60-74 MINUTES Julita Sofia DO [address] [place] [address] [facility] [place] [address] [place] [id number] Referral ID Status Reason Start Date Expiration Date Visits Requested Visits Authorized [id number] Pending Review PCP Requested Referral Auto-Generate d Referral 07/16/2022 07/16/2023 1 1 Specialty Diagnoses / Procedures Referred By Contac t Referred To Contact Neurology Diagnoses Spina bifida with hydrocephalus, unspecified spinal region (HCC) Congenital hydrocephalus (HCC) Hydrocephalus, unspecified type (HCC) Neurogenic bladder Procedures CONSULT TO NEUROLOGY OFFICE/OUTPATIENT [facility] 60-74 MINUTES Lyndon Estes MD [address] [place] [id number] Referral ID Status Reason Start Date Expiration Date Visits Requested Visits Authorized [id number] Pending Review PCP Requested Referral 08/03/2023 08/02/2024 1 1 Specialty Diagnoses / Procedures Referred By Contac t Referred To [facility] Diagnoses Chronic cough Procedures LUNG DIFFUSION CAPACITY (DLCO) DIFFUSING CAPACITY Lyndon Estes MD [address] [place] [id number] [facility] [address] [place] [address], [place] [address] Referral ID Status Reason Start Date Expiration Date Visits Requested Visits Authorized [id number] Pending Review Auto-Generat ed Referral 08/03/2023 09/01/2024 1 1 Specialty Diagnoses / Procedures Referred By Rose Marie neri Referred To Contact [facility] Diagnoses Chronic cough Procedures SPIROMETRY WITH DILATOR IF OBSTRUCTED BRNCDILAT RSPSE SPMTRY PRE&POST-BRNCDILAT ADMN Lyndon Estes MD [address] [place] [address] [facility] [address] [place] [id number] Referral ID Status Reason Start Date Expiration Date Visits Requested Visits Authorized [id number] Pending Review Auto-Generat ed Referral 08/03/2023 09/01/2024 1 1 Additional Source Comments (unrecognized sect ion and content) No Status Records FoundNo Status Records FoundNo Status Records Found INFORMATION SOURCE (unrecogn ized section and content) DATE CREATED AUTHOR AUTHOR'S ORGANIZ ATION 12/23/2022 [facility] DATE CREATED AUTHOR AUTHOR'S ORGANIZ ATION 09/20/2023 [facility] Source Comments (unrecognize d section and content) In the event this informatio n is protected by the Federal Confidentiality of Alcohol and Drug Abuse Patient Records regulations: The Federal rules restrict any use of the information to criminally investigate or prosecute any alcohol or drug abuse patient.[facility] the event this information is protected by the Federal Confidentiality of Alcohol and Drug Abuse Patient Records regulations: The Federal rules restrict any use of the information to criminally investigate or prosecute any alcohol or drug abuse patient.[facility] Center[facility] the event this information is protected by the Federal Confidentiality of Alcohol and Drug Abuse Patient Records regulations: The Federal rules restrict any use of the information to criminally investigate or prosecute any alcohol or drug abuse patient.[facility] Center[facility] the event this information is protected by the Federal Confidentiality of Alcohol and Drug Abuse Patient Records regulations: The Federal rules restrict any use of the information to criminally investigate or prosecute any alcohol or drug abuse patient.[facility] Center[facility] the event this information is protected by the Federal Confidentiality of Alcohol and Drug Abuse Patient Records regulations: The Federal rules restrict any use of the information to criminally investigate or prosecute any alcohol or drug abuse patient.[facility] Center[facility] the event this information is protected by the Federal Confidentiality of Alcohol and Drug Abuse Patient Records regulations: The Federal rules restrict any use of the information to criminally investigate or prosecute any alcohol or drug abuse patient.[facility] Center[facility] the event this information is protected by the Federal Confidentiality of Alcohol and Drug Abuse Patient Records regulations: The Federal rules restrict any use of the information to criminally investigate or prosecute any alcohol or drug abuse patient.[facility] CenterIn the event this information is protected by the Federal Confidentiality of Alcohol and Drug Abuse Patient Records regulations: The Federal rules restrict any use of the information to criminally investigate or prosecute any alcohol or drug abuse patient.[facility] Center[facility] the event this information is protected by the Federal Confidentiality of Alcohol and Drug Abuse Patient Records regulations: The Federal rules restrict any use of the information to criminally investigate or prosecute any alcohol or drug abuse patient.[facility] CenterIn the event this information is protected by the Federal Confidentiality of Alcohol and Drug Abuse Patient Records regulations: The Federal rules restrict any use of the information to criminally investigate or prosecute any alcohol or drug abuse patient.[facility] CenterIn the event this information is protected by the Federal Confidentiality of Alcohol and Drug Abuse Patient Records regulations: The Federal rules restrict any use of the information to criminally investigate or prosecute any alcohol or drug abuse patient.[facility] CenterIn the event this information is protected by the Federal Confidentiality of Alcohol and Drug Abuse Patient Records regulations: The Federal rules restrict any use of the information to criminally investigate or prosecute any alcohol or drug abuse patient.[facility] CenterIn the event this information is protected by the Federal Confidentiality of Alcohol and Drug Abuse Patient Records regulations: The Federal rules restrict any use of the information to criminally investigate or prosecute any alcohol or drug abuse patient.[facility] CenterIn the event this information is protected by the Federal Confidentiality of Alcohol and Drug Abuse Patient Records regulations: The Federal rules restrict any use of the information to criminally investigate or prosecute any alcohol or drug abuse patient.[facility] CenterIn the event this information is protected by the Federal Confidentiality of Alcohol and Drug Abuse Patient Records regulations: The Federal rules restrict any use of the information to criminally investigate or prosecute any alcohol or drug abuse patient.[facility] CenterIn the event this information is protected by the Federal Confidentiality of Alcohol and Drug Abuse Patient Records regulations: The Federal rules restrict any use of the information to criminally investigate or prosecute any alcohol or drug abuse patient.[facility] CenterIn the event this information is protected by the Federal Confidentiality of Alcohol and Drug Abuse Patient Records regulations: The Federal rules restrict any use of the information to criminally investigate or prosecute any alcohol or drug abuse patient.[facility] CenterIn the event this information is protected by the Federal Confidentiality of Alcohol and Drug Abuse Patient Records regulations: The Federal rules restrict any use of the information to criminally investigate or prosecute any alcohol or drug abuse patient.[facility] CenterIn the event this information is protected by the Federal Confidentiality of Alcohol and Drug Abuse Patient Records regulations: The Federal rules restrict any use of the information to criminally investigate or prosecute any alcohol or drug abuse patient.[facility] CenterIn the event this information is protected by the Federal Confidentiality of Alcohol and Drug Abuse Patient Records regulations: The Federal rules restrict any use of the information to criminally investigate or prosecute any alcohol or drug abuse patient.[facility] CenterIn the event this information is protected by the Federal Confidentiality of Alcohol and Drug Abuse Patient Records regulations: The Federal rules restrict any use of the information to criminally investigate or prosecute any alcohol or drug abuse patient.[facility] CenterIn the event this information is protected by the Federal Confidentiality of Alcohol and Drug Abuse Patient Records regulations: The Federal rules restrict any use of the information to criminally investigate or prosecute any alcohol or drug abuse patient.[facility] CenterIn the event this information is protected by the Federal Confidentiality of Alcohol and Drug Abuse Patient Records regulations: The Federal rules restrict any use of the information to criminally investigate or prosecute any alcohol or drug abuse patient.[facility] CenterIn the event this information is protected by the Federal Confidentiality of Alcohol and Drug Abuse Patient Records regulations: The Federal rules restrict any use of the information to criminally investigate or prosecute any alcohol or drug abuse patient.[facility] CenterIn the event this information is protected by the Federal Confidentiality of Alcohol and Drug Abuse Patient Records regulations: The Federal rules restrict any use of the information to criminally investigate or prosecute any alcohol or drug abuse patient.[facility] CenterIn the event this information is protected by the Federal Confidentiality of Alcohol and Drug Abuse Patient Records regulations: The Federal rules restrict any use of the information to criminally investigate or prosecute any alcohol or drug abuse patient.[facility] CenterIn the event this information is protected by the Federal Confidentiality of Alcohol and Drug Abuse Patient Records regulations: The Federal rules restrict any use of the information to criminally investigate or prosecute any alcohol or drug abuse patient.[facility] CenterIn the event this information is protected by the Federal Confidentiality of Alcohol and Drug Abuse Patient Records regulations: The Federal rules restrict any use of the information to criminally investigate or prosecute any alcohol or drug abuse patient.[facility] CenterIn the event this information is protected by the Federal Confidentiality of Alcohol and Drug Abuse Patient Records regulations: The Federal rules restrict any use of the information to criminally investigate or prosecute any alcohol or drug abuse patient.[facility] CenterIn the event this information is protected by the Federal Confidentiality of Alcohol and Drug Abuse Patient Records regulations: The Federal rules restrict any use of the information to criminally investigate or prosecute any alcohol or drug abuse patient.[facility] CenterIn the event this information is protected by the Federal Confidentiality of Alcohol and Drug Abuse Patient Records regulations: The Federal rules restrict any use of the information to criminally investigate or prosecute any alcohol or drug abuse patient.[facility] CenterIn the event this information is protected by the Federal Confidentiality of Alcohol and Drug Abuse Patient Records regulations: The Federal rules restrict any use of the information to criminally investigate or prosecute any alcohol or drug abuse patient.[facility] CenterIn the event this information is protected by the Federal Confidentiality of Alcohol and Drug Abuse Patient Records regulations: The Federal rules restrict any use of the information to criminally investigate or prosecute any alcohol or drug abuse patient.[facility] CenterIn the event this information is protected by the Federal Confidentiality of Alcohol and Drug Abuse Patient Records regulations: The Federal rules restrict any use of the information to criminally investigate or prosecute any alcohol or drug abuse patient.[facility] CenterIn the event this information is protected by the Federal Confidentiality of Alcohol and Drug Abuse Patient Records regulations: The Federal rules restrict any use of the information to criminally investigate or prosecute any alcohol or drug abuse patient.[facility] CenterIn the event this information is protected by the Federal Confidentiality of Alcohol and Drug Abuse Patient Records regulations: The Federal rules restrict any use of the information to criminally investigate or prosecute any alcohol or drug abuse patient.[facility] CenterIn the event this information is protected by the Federal Confidentiality of Alcohol and Drug Abuse Patient Records regulations: The Federal rules restrict any use of the information to criminally investigate or prosecute any alcohol or drug abuse patient.[facility] CenterIn the event this information is protected by the Federal Confidentiality of Alcohol and Drug Abuse Patient Records regulations: The Federal rules restrict any use of the information to criminally investigate or prosecute any alcohol or drug abuse patient.[facility] CenterIn the event this information is protected by the Federal Confidentiality of Alcohol and Drug Abuse Patient Records regulations: The Federal rules restrict any use of the information to criminally investigate or prosecute any alcohol or drug abuse patient.[facility] CenterIn the event this information is protected by the Federal Confidentiality of Alcohol and Drug Abuse Patient Records regulations: The Federal rules restrict any use of the information to criminally investigate or prosecute any alcohol or drug abuse patient.[facility] CenterIn the event this information is protected by the Federal Confidentiality of Alcohol and Drug Abuse Patient Records regulations: The Federal rules restrict any use of the information to criminally investigate or prosecute any alcohol or drug abuse patient.[facility] CenterIn the event this information is protected by the Federal Confidentiality of Alcohol and Drug Abuse Patient Records regulations: The Federal rules restrict any use of the information to criminally investigate or prosecute any alcohol or drug abuse patient.[facility] CenterIn the event this information is protected by the Federal Confidentiality of Alcohol and Drug Abuse Patient Records regulations: The Federal rules restrict any use of the information to criminally investigate or prosecute any alcohol or drug abuse patient.[facility] CenterIn the event this information is protected by the Federal Confidentiality of Alcohol and Drug Abuse Patient Records regulations: The Federal rules restrict any use of the information to criminally investigate or prosecute any alcohol or drug abuse patient.[facility] CenterIn the event this information is protected by the Federal Confidentiality of Alcohol and Drug Abuse Patient Records regulations: The Federal rules restrict any use of the information to criminally investigate or prosecute any alcohol or drug abuse patient.[facility] CenterIn the event this information is protected by the Federal Confidentiality of Alcohol and Drug Abuse Patient Records regulations: The Federal rules restrict any use of the information to criminally investigate or prosecute any alcohol or drug abuse patient.[facility] CenterIn the event this information is protected by the Federal Confidentiality of Alcohol and Drug Abuse Patient Records regulations: The Federal rules restrict any use of the information to criminally investigate or prosecute any alcohol or drug abuse patient.[facility] CenterIn the event this information is protected by the Federal Confidentiality of Alcohol and Drug Abuse Patient Records regulations: The Federal rules restrict any use of the information to criminally investigate or prosecute any alcohol or drug abuse patient.[facility] CenterIn the event this information is protected by the Federal Confidentiality of Alcohol and Drug Abuse Patient Records regulations: The Federal rules restrict any use of the information to criminally investigate or prosecute any alcohol or drug abuse patient.[facility] CenterIn the event this information is protected by the Federal Confidentiality of Alcohol and Drug Abuse Patient Records regulations: The Federal rules restrict any use of the information to criminally investigate or prosecute any alcohol or drug abuse patient.[facility] CenterIn the event this information is protected by the Federal Confidentiality of Alcohol and Drug Abuse Patient Records regulations: The Federal rules restrict any use of the information to criminally investigate or prosecute any alcohol or drug abuse patient.[facility] CenterIn the event this information is protected by the Federal Confidentiality of Alcohol and Drug Abuse Patient Records regulations: The Federal rules restrict any use of the information to criminally investigate or prosecute any alcohol or drug abuse patient.[facility] CenterIn the event this information is protected by the Federal Confidentiality of Alcohol and Drug Abuse Patient Records regulations: The Federal rules restrict any use of the information to criminally investigate or prosecute any alcohol or drug abuse patient.[facility] CenterIn the event this information is protected by the Federal Confidentiality of Alcohol and Drug Abuse Patient Records regulations: The Federal rules restrict any use of the information to criminally investigate or prosecute any alcohol or drug abuse patient.[facility] CenterIn the event this information is protected by the Federal Confidentiality of Alcohol and Drug Abuse Patient Records regulations: The Federal rules restrict any use of the information to criminally investigate or prosecute any alcohol or drug abuse patient.[facility] CenterIn the event this information is protected by the Federal Confidentiality of Alcohol and Drug Abuse Patient Records regulations: The Federal rules restrict any use of the information to criminally investigate or prosecute any alcohol or drug abuse patient.[facility] CenterIn the event this information is protected by the Federal Confidentiality of Alcohol and Drug Abuse Patient Records regulations: The Federal rules restrict any use of the information to criminally investigate or prosecute any alcohol or drug abuse patient.[facility] CenterIn the event this information is protected by the Federal Confidentiality of Alcohol and Drug Abuse Patient Records regulations: The Federal rules restrict any use of the information to criminally investigate or prosecute any alcohol or drug abuse patient.[facility] CenterIn the event this information is protected by the Federal Confidentiality of Alcohol and Drug Abuse Patient Records regulations: The Federal rules restrict any use of the information to criminally investigate or prosecute any alcohol or drug abuse patient.[facility] CenterIn the event this information is protected by the Federal Confidentiality of Alcohol and Drug Abuse Patient Records regulations: The Federal rules restrict any use of the information to criminally investigate or prosecute any alcohol or drug abuse patient.[facility] CenterIn the event this information is protected by the Federal Confidentiality of Alcohol and Drug Abuse Patient Records regulations: The Federal rules restrict any use of the information to criminally investigate or prosecute any alcohol or drug abuse patient.[facility] CenterIn the event this information is protected by the Federal Confidentiality of Alcohol and Drug Abuse Patient Records regulations: The Federal rules restrict any use of the information to criminally investigate or prosecute any alcohol or drug abuse patient.[facility] CenterIn the event this information is protected by the Federal Confidentiality of Alcohol and Drug Abuse Patient Records regulations: The Federal rules restrict any use of the information to criminally investigate or prosecute any alcohol or drug abuse patient.[facility] CenterIn the event this information is protected by the Federal Confidentiality of Alcohol and Drug Abuse Patient Records regulations: The Federal rules restrict any use of the information to criminally investigate or prosecute any alcohol or drug abuse patient.[facility] CenterIn the event this information is protected by the Federal Confidentiality of Alcohol and Drug Abuse Patient Records regulations: The Federal rules restrict any use of the information to criminally investigate or prosecute any alcohol or drug abuse patient.[facility] CenterIn the event this information is protected by the Federal Confidentiality of Alcohol and Drug Abuse Patient Records regulations: The Federal rules restrict any use of the information to criminally investigate or prosecute any alcohol or drug abuse patient.[facility] CenterIn the event this information is protected by the Federal Confidentiality of Alcohol and Drug Abuse Patient Records regulations: The Federal rules restrict any use of the information to criminally investigate or prosecute any alcohol or drug abuse patient.[facility] CenterIn the event this information is protected by the Federal Confidentiality of Alcohol and Drug Abuse Patient Records regulations: The Federal rules restrict any use of the information to criminally investigate or prosecute any alcohol or drug abuse patient.[facility] CenterIn the event this information is protected by the Federal Confidentiality of Alcohol and Drug Abuse Patient Records regulations: The Federal rules restrict any use of the information to criminally investigate or prosecute any alcohol or drug abuse patient.[facility] CenterIn the event this information is protected by the Federal Confidentiality of Alcohol and Drug Abuse Patient Records regulations: The Federal rules restrict any use of the information to criminally investigate or prosecute any alcohol or drug abuse patient.[facility] CenterIn the event this information is protected by the Federal Confidentiality of Alcohol and Drug Abuse Patient Records regulations: The Federal rules restrict any use of the information to criminally investigate or prosecute any alcohol or drug abuse patient.[facility] CenterIn the event this information is protected by the Federal Confidentiality of Alcohol and Drug Abuse Patient Records regulations: The Federal rules restrict any use of the information to criminally investigate or prosecute any alcohol or drug abuse patient.[facility] CenterIn the event this information is protected by the Federal Confidentiality of Alcohol and Drug Abuse Patient Records regulations: The Federal rules restrict any use of the information to criminally investigate or prosecute any alcohol or drug abuse patient.[facility] CenterIn the event this information is protected by the Federal Confidentiality of Alcohol and Drug Abuse Patient Records regulations: The Federal rules restrict any use of the information to criminally investigate or prosecute any alcohol or drug abuse patient.[facility] CenterIn the event this information is protected by the Federal Confidentiality of Alcohol and Drug Abuse Patient Records regulations: The Federal rules restrict any use of the information to criminally investigate or prosecute any alcohol or drug abuse patient.[facility] CenterIn the event this information is protected by the Federal Confidentiality of Alcohol and Drug Abuse Patient Records regulations: The Federal rules restrict any use of the information to criminally investigate or prosecute any alcohol or drug abuse patient.[facility] CenterIn the event this information is protected by the Federal Confidentiality of Alcohol and Drug Abuse Patient Records regulations: The Federal rules restrict any use of the information to criminally investigate or prosecute any alcohol or drug abuse patient.[facility] CenterIn the event this information is protected by the Federal Confidentiality of Alcohol and Drug Abuse Patient Records regulations: The Federal rules restrict any use of the information to criminally investigate or prosecute any alcohol or drug abuse patient.[facility] CenterIn the event this information is protected by the Federal Confidentiality of Alcohol and Drug Abuse Patient Records regulations: The Federal rules restrict any use of the information to criminally investigate or prosecute any alcohol or drug abuse patient.[facility] CenterIn the event this information is protected by the Federal Confidentiality of Alcohol and Drug Abuse Patient Records regulations: The Federal rules restrict any use of the information to criminally investigate or prosecute any alcohol or drug abuse patient.[facility] CenterIn the event this information is protected by the Federal Confidentiality of Alcohol and Drug Abuse Patient Records regulations: The Federal rules restrict any use of the information to criminally investigate or prosecute any alcohol or drug abuse patient.[facility] CenterIn the event this information is protected by the Federal Confidentiality of Alcohol and Drug Abuse Patient Records regulations: The Federal rules restrict any use of the information to criminally investigate or prosecute any alcohol or drug abuse patient.[facility] CenterIn the event this information is protected by the Federal Confidentiality of Alcohol and Drug Abuse Patient Records regulations: The Federal rules restrict any use of the information to criminally investigate or prosecute any alcohol or drug abuse patient.[facility] CenterIn the event this information is protected by the Federal Confidentiality of Alcohol and Drug Abuse Patient Records regulations: The Federal rules restrict any use of the information to criminally investigate or prosecute any alcohol or drug abuse patient.[facility] CenterIn the event this information is protected by the Federal Confidentiality of Alcohol and Drug Abuse Patient Records regulations: The Federal rules restrict any use of the information to criminally investigate or prosecute any alcohol or drug abuse patient.[facility] CenterIn the event this information is protected by the Federal Confidentiality of Alcohol and Drug Abuse Patient Records regulations: The Federal rules restrict any use of the information to criminally investigate or prosecute any alcohol or drug abuse patient.[facility] CenterIn the event this information is protected by the Federal Confidentiality of Alcohol and Drug Abuse Patient Records regulations: The Federal rules restrict any use of the information to criminally investigate or prosecute any alcohol or drug abuse patient.[facility] CenterIn the event this information is protected by the Federal Confidentiality of Alcohol and Drug Abuse Patient Records regulations: The Federal rules restrict any use of the information to criminally investigate or prosecute any alcohol or drug abuse patient.[facility] CenterIn the event this information is protected by the Federal Confidentiality of Alcohol and Drug Abuse Patient Records regulations: The Federal rules restrict any use of the information to criminally investigate or prosecute any alcohol or drug abuse patient.[facility] CenterIn the event this information is protected by the Federal Confidentiality of Alcohol and Drug Abuse Patient Records regulations: The Federal rules restrict any use of the information to criminally investigate or prosecute any alcohol or drug abuse patient.[facility] CenterIn the event this information is protected by the Federal Confidentiality of Alcohol and Drug Abuse Patient Records regulations: The Federal rules restrict any use of the information to criminally investigate or prosecute any alcohol or drug abuse patient.[facility] CenterIn the event this information is protected by the Federal Confidentiality of Alcohol and Drug Abuse Patient Records regulations: The Federal rules restrict any use of the information to criminally investigate or prosecute any alcohol or drug abuse patient.[facility] CenterIn the event this information is protected by the Federal Confidentiality of Alcohol and Drug Abuse Patient Records regulations: The Federal rules restrict any use of the information to criminally investigate or prosecute any alcohol or drug abuse patient.[facility] CenterIn the event this information is protected by the Federal Confidentiality of Alcohol and Drug Abuse Patient Records regulations: The Federal rules restrict any use of the information to criminally investigate or prosecute any alcohol or drug abuse patient.[facility] CenterIn the event this information is protected by the Federal Confidentiality of Alcohol and Drug Abuse Patient Records regulations: The Federal rules restrict any use of the information to criminally investigate or prosecute any alcohol or drug abuse patient.[facility] CenterIn the event this information is protected by the Federal Confidentiality of Alcohol and Drug Abuse Patient Records regulations: The Federal rules restrict any use of the information to criminally investigate or prosecute any alcohol or drug abuse patient.[facility] CenterIn the event this information is protected by the Federal Confidentiality of Alcohol and Drug Abuse Patient Records regulations: The Federal rules restrict any use of the information to criminally investigate or prosecute any alcohol or drug abuse patient.[facility] Reason for Visit (unrecogniz ed section and [...] CT Specialty Diagnoses / Procedures Referred By Contac t Referred To Contact CT IMAGING Diagnoses Small bowel obstruction (HCC) Procedures CT ABD/PEL WO IVCON CT ABD & PEL[place] [id number] Imaging Referral ID Status Reason Start Date Expiration Date V isits Requested Visits Authorized [id number] Closed Auto-Generate d Referral 03/05/2022 03/04/2023 1 [...] Flu vaccination Reason Comments Results Reason Comments [facility] OT POC Reason Comments Order Request Reason Comments Continued Social Work order Reason Comments Hospital Follow Up Reason Onset Date Comments Transition Of Care 08/17/2022 [facility] 08/10/22-1 Reason Comments Physical Therapy orders Reason Comments Forms Reason Comments Physical Therapy Update Reason Comments New Patient Slow transit dysmoti lity Reason Comments Orders [facility] Home health Reason Comments Med Change Request Reason Comments [facility], nursing, verbal order Reason Comments Usp Updated Reason Comments Patient Update Patient Question Reason Comments Approve for POC Reason Comments [facility] SN POC Reason Onset Date Comments Refill Request 02/17/2023 Reason Comments Delay/resumption of care Reason Onset Date Comments Transition Of Care 03/08/2023 TCM follow up Reason Comments [facility] PT POC Reason Comments Inpatient at [facility] Reason Comments Follow Up Phone Call Post Discharge F/U - attempt made. No answer. Reason Comments Home Health Nursing Call Reason Onset Date Comments Transition Of Care 04/20/2023 TCM follow-up Reason Onset Date Comments Transition Of Care 05/04/2023 TCM follow-up Reason Comments Usp Update Reason Comments Hospital F/U Reason Comments Patient Update Results Reason Comments Home Health Medication Order Reason Comments Established Patient Constipation Reason Comments 6 Month Exam Reason Comments Hospital Admission Reason Comments Orders recert patient for home health Reason Comments Hospital F/U Reason Onset Date Comments Transition Of Care 08/18/2023 [facility] 08/09/23-1 Reason Onset Date Comments Refill Request 09/06/2023 Care Teams (unrecognized sec tion and content) Alarm Adjuster Relationship Specialty Start Date End Date Tommy, Lyndon J, MD [address] [facility] [address] PCP - General Family Practice 12/11/18 Alarm Adjuster Relationship Specialty Start Date End Date Lyndon Estes MD [address] [facility] [address] PCP - General Family Practice 12/11/18 Alarm Adjuster Relationship Specialty Start Date End Date Lyndon Estes MD [address] [facility] [address] PCP - General Family Practice 12/11/18 Alarm Adjuster Relationship Specialty Start Date End Date Lyndon Estes MD [address] [facility] [address] PCP - General Family Practice 12/11/18 Alarm Adjuster Relationship Specialty Start Date End Date Lyndon Estes MD [address] [facility] [address] PCP - General Family Practice 12/11/18 Alarm Adjuster Relationship Specialty Start Date End Date Lyndon Estes MD [address] [facility] [address] PCP - General Family Practice 12/11/18 Alarm Adjuster Relationship Specialty Start Date End Date Lyndon Estes MD [address] [facility] [address] PCP - General Family Practice 12/11/18 Alarm Adjuster Relationship Specialty Start Date End Date Lyndon Estes MD [address] [facility] [address] PCP - General Family Practice 12/11/18 Alarm Adjuster Relationship Specialty Start Date End Date Lyndon Estes MD [address] [facility] [address] PCP - General Family Practice 12/11/18 Alarm Adjuster Relationship Specialty Start Date End Date Lyndon Estes MD [address] [place] [address] PCP - General Family Practice 12/11/18 Francisca Jensen MD [address] [place] [address] Referring General Surgery 04/20/22 Francisca Jensen MD [address] [place] [address] Home Care Physician General Surgery 04/20/22 Alarm Adjuster Relationship Specialty Start Date End Date Lyndon Estes MD [address] [place] [address] PCP - General Family Practice 12/11/18 Francisca Jensen MD [address] [place] [address] Referring General Surgery 04/20/22 Francisca Jensen MD [address] [place] [address] Home Care Physician General Surgery 04/20/22 Alarm Adjuster Relationship Specialty Start Date End Date Lyndon Estes MD [address] [place] [address] PCP - General Family Practice 12/11/18 Francisca Jensen MD [address] [place] [address] Referring General Surgery 04/20/22 Francisca Jensen MD [address] [place] [address] Home Care Physician General Surgery 04/20/22 Alarm Adjuster Relationship Specialty Start Date End Date Lyndon Estes MD [address] [place] [address] PCP - General Family Practice 12/11/18 Francisca Jensen MD [address] [place] [address] Referring General Surgery 04/20/22 Francisca Jensen MD [address] [place] [address] Home Care Physician General Surgery 04/20/22 Alarm Adjuster Relationship Specialty Start Date End Date Lyndon Estes MD [address] [place] [address] PCP - General Family Practice 12/11/18 Francisca Jensen MD [address] [place] [address] Referring General Surgery 04/20/22 Francisca Jensen MD [address] [place] [address] Home Care Physician General Surgery 04/20/22 Alarm Adjuster Relationship Specialty Start Date End Date Lyndon Estes MD [address] [place] [address] PCP - General Family Practice 12/11/18 Francisca Jensen MD [address] [place] [address] Referring General Surgery 04/20/22 Francisca Jensen MD [address] [place] [address] Home Care Physician General Surgery 04/20/22 Alarm Adjuster Relationship Specialty Start Date End Date Lyndon Estes MD [address] [place] [address] PCP - General Family Practice 12/11/18 Francisca Jensen MD [address] [place] [address] Referring General Surgery 04/20/22 Francisca Jensen MD [address] [place] [address] Home Care Provider General Surgery 04/20/22 Alarm Adjuster Relationship Specialty Start Date End Date Lyndon Estes MD [address] [place] [address] PCP - General Family Practice 12/11/18 Francisca Jensen MD [address] [place] [address] Referring General Surgery 04/20/22 Francisca Jensen MD [address] [place] [address] Home Care Provider General Surgery 04/20/22 Alarm Adjuster Relationship Specialty Start Date End Date Lyndon Estes MD [address] [place] [address] PCP - General Family Practice 12/11/18 Francisca Jensen MD [address] [place] [address] Referring General Surgery 04/20/22 Francisca Jensen MD [address] [place] [address] Home Care Provider General Surgery 04/20/22 Alarm Adjuster Relationship Specialty Start Date End Date Lyndon Estes MD [address] [place] [address] PCP - General Family Practice 12/11/18 Francisca Jensen MD [address] [place] [address] Referring General Surgery 04/20/22 Francisca Jensen MD [address] [place] [address] Home Care Provider General Surgery 04/20/22 Alarm Adjuster Relationship Specialty Start Date End Date Lyndon Estes MD [address] [place] [address] PCP - General Family Medicine 12/11/18 Francisca Jensen MD [address] [place] [address] Referring General Surgery 04/20/22 Francisca Jensen MD [address] [place] [address] Home Care Provider General Surgery 04/20/22 Alarm Adjuster Relationship Specialty Start Date End Date Lyndon Estes MD [address] [place] [address] PCP - General Family Medicine 12/11/18 Francisca Jensen MD [address] [place] [address] Referring General Surgery 04/20/22 Francisca Jensen MD [address] [place] [address] Home Care Provider General Surgery 04/20/22 Alarm Adjuster Relationship Specialty Start Date End Date Lyndon Estes MD [address] [place] [address] PCP - General Family Medicine 12/11/18 Francisca Jensen MD [address] [place] [address] Referring General Surgery 04/20/22 Francisca Jensen MD [address] [place] [address] Home Care Provider General Surgery 04/20/22 Alarm Adjuster Relationship Specialty Start Date End Date Lyndon Estes MD [address] [place] [address] PCP - General Family Medicine 12/11/18 Francisca Jensen MD [address] [place] [address] Referring General Surgery 04/20/22 Francisca Jensen MD [address] [place] [address] Home Care Provider General Surgery 04/20/22 Alarm Adjuster Relationship Specialty Start Date End Date Lyndon Estes MD [address] [place] [address] PCP - General Family Medicine 12/11/18 Francisca Jensen MD [address] [place] [address] Referring General Surgery 04/20/22 Francisca Jensen MD [address] [place] [address] Home Care Provider General Surgery 04/20/22 Alarm Adjuster Relationship Specialty Start Date End Date Lyndon Estes MD [address] [place] [address] PCP - General Family Medicine 12/11/18 Francisca Jensen MD [address] [place] [address] Referring General Surgery 04/20/22 Francisca Jensen MD [address] [place] [address] Home Care Provider General Surgery 04/20/22 Alarm Adjuster Relationship Specialty Start Date End Date Lyndon Estes MD [address] [place] [address] PCP - General Family Medicine 12/11/18 Francisca Jensen MD [address] [place] [address] Referring General Surgery 04/20/22 Francisca Jensen MD [address] [place] [address] Home Care Provider General Surgery 04/20/22 Alarm Adjuster Relationship Specialty Start Date End Date Lyndon Estes MD [address] [place] [address] PCP - General Family Medicine 12/11/18 Francisca Jensen MD [address] [place] [address] Referring General Surgery 04/20/22 Francisca Jensen MD [address] [place] [address] Home Care Provider General Surgery 04/20/22 Alarm Adjuster Relationship Specialty Start Date End Date Lyndon Estes MD [address] [place] [address] PCP - General Family Medicine 12/11/18 Francisca Jensen MD [address] [place] [address] Referring General Surgery 04/20/22 Francisca Jensen MD [address] [place] [address] Home Care Provider General Surgery 04/20/22 Alarm Adjuster Relationship Specialty Start Date End Date Lyndon Estes MD [address] [place] [address] PCP - General Family Medicine 12/11/18 Francisca Jensen MD [address] [place] [address] Referring General Surgery 04/20/22 Francisca Jensen MD [address] [place] [address] Home Care Provider General Surgery 04/20/22 Katiana Hoyos, body design checker Inspector Circuitry Negative 03/01/23 03/30/23 Alarm Adjuster Relationship Specialty Start Date End Date Lyndon Estes MD [address] [place], [place] [id number] PCP - General Family Medicine 12/11/18 Francisca Jensen MD [address] [place] [address] Referring General Surgery 04/20/22 Francisca Jensen MD [address] [place] [address] Home Care Provider General Surgery 04/20/22 Katiana Hoyos, body design checker Inspector Circuitry Negative 03/01/23 03/30/23 Alarm Adjuster Relationship Specialty Start Date End Date Lyndon Estes MD [address] [place], [place] [address] PCP - General Family Medicine 12/11/18 Francisca Jensen MD [address] [place] [address] Referring General Surgery 04/20/22 Francisca Jensen MD [address] [place] [address] Home Care Provider General Surgery 04/20/22 Giselle Reese body design checker Inspector Circuitry Negative 04/06/23 05/04/23 Alarm Adjuster Relationship Specialty Start Date End Date Lyndon Estes MD [address] [place] [address] PCP - General Family Medicine 12/11/18 Francisca Jensen MD [address] [place] [address] Referring General Surgery 04/20/22 Francisca Jensen MD [address] [place] [address] Home Care Provider General Surgery 04/20/22 Giselle Reese, body design checker Inspector Circuitry Negative 04/06/23 05/04/23 Alarm Adjuster Relationship Specialty Start Date End Date Lyndon Estes MD [address] [place] [address] PCP - General Family Medicine 12/11/18 Francisca Jensen MD [address] [place] [address] Referring General Surgery 04/20/22 Francisca Jensen MD [address] [place] [address] Home Care Provider General Surgery 04/20/22 Giselle Reese, body design checker Inspector Circuitry Negative 04/06/23 05/04/23 Alarm Adjuster Relationship Specialty Start Date End Date Lyndon Estes MD [address] [place] [address] PCP - General Family Medicine 12/11/18 Francisca Jensen MD [address] [place] [address] Referring General Surgery 04/20/22 Francisca Jensen MD [address] [place] [address] Home Care Provider General Surgery 04/20/22 Alarm Adjuster Relationship Specialty Start Date End Date Lyndon Estes MD [address] [place] [address] PCP - General Family Medicine 12/11/18 Francisca Jensen MD [address] [place] [address] Referring General Surgery 04/20/22 Francisca Jensen MD [address] [place], [place] [address] Home Care Provider General Surgery 04/20/22 Alarm Adjuster Relationship Specialty Start Date End Date Lyndon Estes MD [address] [place] [address] PCP - General Family Medicine 12/11/18 Francisca Jensen MD [address] [place] [address] Referring General Surgery 04/20/22 Francisca Jensen MD [address] [place] [address] Home Care Provider General Surgery 04/20/22 Alarm Adjuster Relationship Specialty Start Date End Date Lyndon Estes MD [address] [place] [address] PCP - General Family Medicine 12/11/18 Francisca Jensen MD [address] [place] [address] Referring General Surgery 04/20/22 Francisca Jensen MD [address] [place] [address] Home Care Provider General Surgery 04/20/22 Alarm Adjuster Relationship Specialty Start Date End Date Lyndon Estes MD [address] [place] [address] PCP - General Family Medicine 12/11/18 Francisca Jensen MD [address] [place] [address] Referring General Surgery 04/20/22 Francisca Jensen MD [address] [place] [address] Home Care Provider General Surgery 04/20/22 Alarm Adjuster Relationship Specialty Start Date End Date Lyndon Estes MD [address] [place] [address] PCP - General Family Medicine 12/11/18 Francisca Jensen MD [address] [place] [address] Referring General Surgery 04/20/22 Francisca Jensen MD [address] [place] [address] Home Care Provider General Surgery 04/20/22 Alarm Adjuster Relationship Specialty Start Date End Date Lyndon Estes MD [address] [place] [address] PCP - General Family Medicine 12/11/18 Francisca Jensen MD [address] [place] [phone] Referring General Surgery 04/20/22 Francisca Jensen MD [address] [place] [address] Home Care Provider General Surgery 04/20/22 Giselle Reese, body design checker Inspector Circuitry Negative 04/06/23 05/04/23 Alarm Adjuster Relationship Specialty Start Date End Date Lyndon Estes MD [address] [place], [place] [address] PCP - General Family Medicine 12/11/18 Francisca Jensen MD [address] [place] [address] Referring General Surgery 04/20/22 Francisca Jensen MD [address] [place] [address] Home Care Provider General Surgery 04/20/22 Alarm Adjuster Relationship Specialty Start Date End Date Lyndon Estes MD [address] [place] [address] PCP - General Family Medicine 12/11/18 Francisca Jensen MD [address] [place] [address] Referring General Surgery 04/20/22 Francisca Jensen MD [address] [place] [address] Home Care Provider General Surgery 04/20/22 Alarm Adjuster Relationship Specialty Start Date End Date Lyndon Estes MD [address] [place] [address] PCP - General Family Medicine 12/11/18 Francisca Jensen MD [address] [place] [address] Referring General Surgery 04/20/22 Francisca Jensen MD [address] [place] [address] Home Care Provider General Surgery 04/20/22 Alarm Adjuster Relationship Specialty Start Date End Date Lyndon Estes MD [address] [place] [address] PCP - General Family Medicine 12/11/18 Francisca Jensen MD [address] [place] [address] Referring General Surgery 04/20/22 Francisca Jensen MD [address] [place] [address] Home Care Provider General Surgery [...] BE BASED ON THE PRIMARY CLINICAL RECORDS. [employer] [facility]. provides no warranty or guarantee of the accuracy or completeness of information in this document.
--- OUTSIDE RECORDS SUMMARY | 2023-09-20 22:55 | XMS RPT_ITS | CCD ---
Author Name Unknown Address [address] [place] [address] Organization [facility] Care Team Providers Care Planer Feeder Name Role Phone Tommy DONOVAN, Lyndon Alexis Primary Care Provider [phone] Mikey DONOVAN, Traceyoxi Unavailable Mikey DONOVAN, Traceyoxi [...] Translations: [CONTRAST DYE] Drug Allergy 0 Anaphylaxis [facility] Work Phone: (20 sources) Nitrofurantoin; Translations: [NITROFURANTOIN MACROCRYSTALLINE ] Drug Allergy 0 GI Upset [facility] Work Phone: (20 sources) Nitrofurantoin; Translations: [NITROFURANTOIN] Drug Allergy 1 GI Upset [facility] (20 sources) Phenytoin; Translations: [PHENYTOIN] Drug Allergy 6 [facility] Work Phone: (20 sources) Fd And C Blue No.1; Translations: [FD AND C BLUE NO.1] Propensity to adverse reactions 6 [facility] Work Phone: (1 source) IODINATED CONTRAST MEDIA; Translations: [IODINATED CONTRAST MEDIA] Propensity to adverse reactions to drug (disorder) 1 [facility] Repository Medications Current Medications Medication Drug [...] 02-02-2008 Chronic Other aftercare (1 source) Other senior care (current) drug therapy; Translations: [Other intermediate manager (current) drug therapy] Onset: 12-15-2022 Episodic Other [...] encounter; Translations: [Bowman catheter problem, initial encounter ([facility])] Onset: 05-20-2023 Episodic Fluid and [...] 88 mm[Hg] Lyndon Estes MD Work Phone: [facility] 08-03-2023 15:04-0400 Heart rate 84 /min Lyndon Estes MD Work Phone: [facility] 08-03-2023 15:04-0400 SaO2% (BldA) [Mass fraction] 97 % Lyndon Estes MD Work Phone: [facility] 08-03-2023 15:04-0400 Systolic blood pressure 130 mm[Hg] Lyndon Estes MD Work Phone: [facility] 06-13-2023 15:30-0400 Body height 160 cm Liz Lintonbons PA-C Work Phone: [facility] 06-13-2023 15:30-0400 Body temperature 97 [degF] Liz Lintonbons PA-C Work Phone: [facility] 06-13-2023 15:30-0400 Body weight 56.25 kg Liz Royerbons PA-C Work Phone: [facility] 06-13-2023 15:30-0400 Diastolic blood pressure 89 mm[Hg] Liz Lintonbons PA-C Work Phone: [facility] 06-13-2023 15:30-0400 Heart rate 80 /min Liz Bells PA-C Work Phone: [facility] 06-13-2023 15:30-0400 SaO2% (BldA) [Mass fraction] 98 % Liz Villarreal PA-C Work Phone: [facility] 06-13-2023 15:30-0400 Systolic blood pressure 125 mm[Hg] Liz Villarreal PA-C Work Phone: [facility] 05-19-2023 15:30-0400 Body height 160 cm Lyndon Estes MD Work Phone: [facility] 05-19-2023 15:30-0400 Body weight 56.25 kg Lyndon Estes MD Work Phone: [facility] 05-19-2023 15:30-0400 Diastolic blood pressure 64 mm[Hg] Lyndon Estes MD Work Phone: [facility] 05-19-2023 15:30-0400 Heart rate 94 /min Lyndon Estes MD Work Phone: [facility] 05-19-2023 15:30-0400 SaO2% (BldA) [Mass fraction] 96 % Lyndon Estes MD Work Phone: [facility] 05-19-2023 15:30-0400 Systolic blood pressure 108 mm[Hg] Lyndon Estes MD Work Phone: [facility] 10-12-2022 12:36-0500 Diastolic blood pressure 89 mm[Hg] Marcelo Prince MD Work Phone: [facility] 10-12-2022 12:36-0500 Heart rate 83 /min Marcelo Prince MD Work Phone: [facility] 10-12-2022 12:36-0500 Systolic blood pressure 131 mm[Hg] Marcelo Prince MD Work Phone: [facility] 10-04-2022 16:31-0500 Body height 160 cm Nayely Nazario MD Work Phone: [facility] 10-04-2022 16:31-0500 Body weight 53.98 kg Nayely Nazario MD Work Phone: [facility] 10-04-2022 16:31-0500 Diastolic blood pressure 92 mm[Hg] Nayely Nazario MD Work Phone: [facility] 10-04-2022 16:31-0500 Heart rate 89 /min Nayely Nazario MD Work Phone: [facility] 10-04-2022 16:31-0500 SaO2% (BldA) [Mass fraction] 100 % Nayely Nazario MD Work Phone: [facility] 10-04-2022 16:31-0500 Systolic blood pressure 145 mm[Hg] Nayely Nazario MD Work Phone: [facility] 08-24-2022 14:32-0400 Diastolic blood pressure 80 mm[Hg] Lyndon Estes MD Work Phone: [facility] 08-24-2022 14:32-0400 Systolic blood pressure 126 mm[Hg] Lyndon Estes MD Work Phone: [facility] 08-24-2022 14:05-0400 Body height 157.5 cm Lyndon Estes MD Work Phone: [facility] 08-24-2022 14:05-0400 Body weight 53.98 kg Lyndon Estes MD Work Phone: [facility] 08-24-2022 14:05-0400 Heart rate 94 /min Lyndon Estes MD Work Phone: [facility] 08-24-2022 14:05-0400 SaO2% (BldA) [Mass fraction] 97 % Lyndon Estes MD Work Phone: [facility] 07-30-2022 15:57-0400 Diastolic blood pressure 86 mm[Hg] Lyndon Estes MD Work Phone: [facility] 07-30-2022 15:57-0400 Systolic blood pressure 130 mm[Hg] Lyndon Estes MD Work Phone: [facility] 07-30-2022 15:36-0400 Body height 157.5 cm Lyndon Estes MD Work Phone: [facility] 07-30-2022 15:36-0400 Body weight 53.98 kg Lyndon Estes MD Work Phone: [facility] 07-30-2022 15:36-0400 Heart rate 97 /min Lyndon Estes MD Work Phone: [facility] 07-30-2022 15:36-0400 SaO2% (BldA) [Mass fraction] 97 % Lyndon Estes MD Work Phone: [facility] 07-16-2022 10:52-0400 Diastolic blood pressure 84 mm[Hg] Julita Sofia DO Work Phone: [facility] 07-16-2022 10:52-0400 Heart rate 87 /min Julita Sofia DO Work Phone: [facility] 07-16-2022 10:52-0400 Systolic blood pressure 153 mm[Hg] Julita Sofia DO Work Phone: [facility] 06-11-2022 16:25-0400 Body height 157.5 cm Millie Kaur APRN.CN P Work Phone: [facility] 06-11-2022 16:25-0400 Body temperature 97.39 [degF] Millie Hudsonbena PARTS FINISHER.CN P Work Phone: [facility] 06-11-2022 16:25-0400 Body weight 55.79 kg Millie Hudsonbena PARTS FINISHER.CN P Work Phone: [facility] 06-11-2022 16:25-0400 Diastolic blood pressure 87 mm[Hg] Millie Kubena PARTS FINISHER.HAND IRONER Work Phone: [facility] 06-11-2022 16:25-0400 Heart rate 76 /min Millie Hudsonbedebbie CHANGN.CN P Work Phone: [facility] 06-11-2022 16:25-0400 SaO2% (BldA) [Mass fraction] 99 % Millie Dalila PARTS FINISHER.HAND IRONER Work Phone: [facility] 06-11-2022 16:25-0400 Systolic blood pressure 136 mm[Hg] Millie Dalila PARTS FINISHER.HAND IRONER Work Phone: [facility] 02-17-2022 09:55-0400 Diastolic blood pressure 88 mm[Hg] Marcelo Prince MD Work Phone: [facility] 02-17-2022 09:55-0400 Heart rate 82 /min Marcelo Prince MD Work Phone: [facility] 02-17-2022 09:55-0400 Systolic blood pressure 128 mm[Hg] Marcelo Prince MD Work Phone: [facility] 02-02-2022 13:40-0400 Body temperature 97.9 [degF] DEBBIE Eller MD Work Phone: [facility] 02-02-2022 13:40-0400 Diastolic blood pressure 91 mm[Hg] DEBBIE Eller MD Work Phone: [facility] 02-02-2022 13:40-0400 Heart rate 83 /min DEBBIE Eller MD Work Phone: [facility] 02-02-2022 13:40-0400 Respiratory rate 20 /min DEBBIE Eller MD Work Phone: [facility] 02-02-2022 13:40-0400 SaO2% (BldA) [Mass fraction] 100 % DEBBIE Eller MD Work Phone: [facility] 02-02-2022 13:40-0400 Systolic blood pressure 145 mm[Hg] DEBBIE Eller MD Work Phone: [facility] Encounters Encounter Date Encounter Type Care Provider Facility Start: 09-06-2023 Denise Mir PARTS FINISHER.HAND IRONER Work Phone: [facility] [place] Procedures Date Procedure Procedure Detail Performing Clinician Start: 08-03-2023 INFLUENZA VACCINE, A GE 6 MO - 64 YR, QUADRIVALENT (AFLURIA, FLULAVAL, FLUZONE) Lyndon Estes MD Work Phone: Start: 04-06-2023 Antibody screen JOSE PRINCE Plan of Treatment Date Care Activity Detail Author Start: 01-28-2028 PROSTATE CANCER SCRE ENING DISCUSSION PROSTATE CANCER SCREENING DISCUSSION [facility] Start: 08-03-2026 Diabetes Screening Diabetes Screen[facility] Start: 05-26-2026 DIABETES SCREEN DIABETES SCREEN [facility] Start: 05-26-2026 Diabetes Screening Diabetes Screenin g [facility] Start: 05-20-2026 DIABETES SCREEN DIABETES SCREEN [facility] Start: 05-19-2026 DIABETES SCREEN DIABETES SCREEN [facility] Start: 04-06-2026 DIABETES SCREEN DIABETES SCREEN [facility] Start: 01-27-2026 DIABETES SCREEN DIABETES SCREEN [facility] Start: 09-11-2025 Lipid 1996 panel - S yue or Plasma Lipid Screening [facility] Start: 09-11-2025 LIPID SCREEN LIPID SCREEN [facility] Start: 09-03-2025 DIABETES SCREEN DIABETES SCREEN [facility] Start: 08-24-2025 DIABETES SCREEN DIABETES SCREEN [facility] Start: 07-30-2025 DIABETES SCREEN DIABETES SCREEN [facility] Start: 07-30-2025 Urine microalbumin profile [facility] Start: 04-19-2025 DIABETES SCREEN DIABETES SCREEN [facility] Start: 01-27-2025 DIABETES SCREEN DIABETES SCREEN [facility] Start: 01-28-2024 HEPATITIS C SCREENING HEPATITIS C [facility] Immunizations Immunization Date Immunization Notes Care Provider Fa devan 08-03-2023 influenza, injectabl e, quadrivalent, contains preservative Lyndon Estes MD Work Phone: [facility] 07-30-2022 influenza, injectabl e, quadrivalent, contains preservative Lyndon Estes MD Work Phone: [facility] 04-19-2022 COVID-19 vaccine, ag e 12+ yr ([employer] [facility]) Katiana Loera LPN Work Phone: [facility] 07-21-2021 influenza, injectabl e, quadrivalent, contains preservative NA Eller MD Work Phone: [facility] 09-11-2020 influenza, injectabl e, quadrivalent, contains preservative DEBBIE Eller MD Work Phone: [facility] 07-30-2015 tetanus toxoid, redu yong diphtheria toxoid, and acellular pertussis vaccine, adsorbed DEBBIE Eller MD Work Phone: [facility] Payers Date Payer Category Payer Medicaid [employer] [id number] 2019-Present [phone] [address] [place] [address] Medicaid [id number] 2019 Medicaid [employer] [id number] 2019-Present [phone] [address] [place] [address] Medicaid [id number] 2019 Unknown ANTHEM BLUE CROS S AND BLUE SHIELD ANTHEM MEDIBLUE O [id number] 2019-Present [phone] [address] [id number] 2019 Unknown ANTHEM BLUE CROS S AND BLUE SHIELD ANTHEM MEDIBLUE O [id number] 2019-Present [id number] [place], [place] [id number] O [id number] 2019 Unknown [id number] 2019 Unknown [id number] 1965 Unknown [id number] Social History Date Type Detail Facility Start: 05-23-2013 Tobacco smoking stat us [facility] Never smoked tobacco [facility] Start: 02-02-2022 End: 08-22-2023 Alcohol intake Current non-drinker of alcohol (finding) [facility] Start: 1965 Sex Assigned At Not on file [facility] Start: 01-23-2022 End: 10-12-2022 Exposure to SARS-CoV-2 (event) Not sure [facility] Start: 02-23-2022 End: 03-05-2022 Exposure to SARS-CoV-2 (event) Unable to assess [facility] Start: 04-14-2022 History SDOH Financial 5 [facility] Start: 04-14-2022 End: 04-07-2023 History SDOH Food Worry 1 [facility] Start: 04-14-2022 End: 04-07-2023 History SDOH Transport Med 2 [facility] Start: 05-23-2013 Tobacco use and exposure Smokeless tobacco non-user [facility] Start: 04-14-2023 End: 05-20-2023 History of Social function [facility] Work Phone: Start: 04-14-2023 End: 05-20-2023 Tobacco use panel [facility] Work Phone: Adult Depression Screening Assessment 0 [facility] Work Phone: (I/We) worried wheth er (my/our) food would run out before (I/we) got money to buy more. Never true [facility] In the past 12 month s, was there a time when you were not able to pay the mortgage or rent on time? No [facility] Work Phone: Clinical Notes 02-02-2008 to 09-06-2023 [...] Felicita Kennedy LPN. documented in this encounter [facility] 09-05-2023 Miscellaneous Notes Faxed signed order to [employer] for urological supplies. Mabel Lopez LPN documented in this encounter [facility] 08-22-2023 Note HNO ID: [id number] Author: Juan Daniel Wolff PA-C Service: ? Author Type: Physician Lacemaker Type: Progress Notes Filed: 08/22/2023 8:46 PM Note Text: 57 year [place] with spina bfida, hydrocephallus, brain shunt.c/o Hospital discharge follow up Facility [facility] Date of admission 08/09/2023 Date of discharge [...] which was successful. Patient has presence of CAPONIZER shunt which made concerns for surgical evaluation. Patient was transferred to [facility], initially kept n.p.o. MDM patient was admitted to [facility] because no bed was available at [facility]. Advance to transitional diet where he [...] (HCC) Inguinal hernia left - imaging at [place] Sleep apnea Spina bifida (HCC) Urinary retention PAST SURGICAL HISTORY Procedure Laterality Date CRTJ SHUNT [id number] TERMINUS EGD W/O [facility] SPEC VARICIES INJ 08/06/2021 PAST SURGICAL HISTORY [...] ICD9: V67.59, ICD10: (more content not included)... [facility] 08-19-2023 Miscellaneous Notes Thanks for the update. [...] risk)? Please advise. documented in this encounter [facility] 08-18-2023 Note Patient Outreach (FA MPWS) JIAN FUENTES ([id number]) 1965 M Date Time Provider Department 08/18/23 KASSY KYLE During your visit today, we recorded the following information about you: Kassy Kyle Ma 08/19/2023 8:19 AM Signed TRANSITION CARE MANAGEMENT (TCM) INITIAL CONTACT Land Conservation Specialist Outreach Provider Action/FYI: Left message for Darrion deng, to return call Initial contact with patient post discharge, spoke to . Patient identified by name and . TRANSITION CARE MANAGEMENT INITIAL OUTREACH DOCUMENTATION: Date of Outreach: 08/18/2023 Outreach Attempt 1: Contact Not Made Date of Discharge 08/15/2023 Some recent data might be hidden SUMMARY: -Pt discharged from [facility] on 08/15/23. -Admitted for: Small Bowel Obstruction Do you have a hospital follow up appointment with your PCP? Appointment on with 08/22/23 with Brayan Wolff MEDICATIONS: Many patients have questions or concerns about their medications once they are home. Were you prescribed any new medications? 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 No Were any of your medications discontinued? No Do you have any questions about getting or taking your medications? No Your discharge instructions/After visit Summary (AVS) are important in guiding you through the recovery process. Is there anything I might help you understand? waiting for call back from [facility] [place] Do you have all the necessary equipment and supplies at home? No, follow site specific process to secure durable medical equipment and/or supplies for the patient, handoff to RN/LEGAL OFFICER, or LIP Medical records from recent hospitalization: [facility] Allergies As of Date: 08/18/2023 Noted Allergy Reaction CONTRAST DYE 10/29/2010 10 - Anaphylaxis FD AND C BLUE NO.1 07/29/2006 IODINATED CONTRAST MEDIA 12/11/2020 10 - Anaphylaxis MACRODANTIN (NITROFURANTOIN MACRO*10/29/2010 8 - GI Upset NITROFURANTOIN 12/11/2020 8 - GI Upset PHENYTOIN 07/29/2006 Date Reviewed: 08/03/2023 Reviewed by: Kaylee Greenberg LPN - Fully Assessed Reason for Visit: Transition Of Care [4074] Cmt: [facility] 08/09/23-08/15/23 Prescriptions as of 08/19/2023 - metoclopramide [...] PALSY - INFANTILE) HEMIPLEGIA, CON*02/02/2008 05/22/2013 Myelodysplasia [[id number]] 05/22/2013 Deformity of ankle and foot, acquired [...] Status:Closed by KASSY KYLE MA on 08/19/23 [facility] 08-18-2023 Note HNO ID: [id number] Author: Kassy Kyle Ma Service: ? Author Type: ? Type: Progress Notes Filed: 08/19/2023 8:19 AM Note Text: TRANSITION CARE MANAGEMENT (TCM) INITIAL CONTACT Land Conservation Specialist Outreach Provider Action/FYI: Left message for sister, Darrion, to return call Initial contact with patient post discharge, spoke to sister. Patient identified by name and . TRANSITION CARE MANAGEMENT INITIAL OUTREACH DOCUMENTATION: Date of Outreach: 08/18/2023 Outreach Attempt 1: Contact Not Made Date of Discharge 08/15/2023 Some recent data might be hidden SUMMARY: -Pt discharged from [facility] on 08/15/23. -Admitted for: Small Bowel Obstruction Do you have a hospital follow up appointment with your PCP? Appointment on with 08/22/23 with Brayan Wolff MEDICATIONS: Many patients have questions or concerns about their medications once they are home. Were you prescribed any new medications? Yes waiting concrete buster operator from main campus on a medication Were [...] and/or supplies for the patient, handoff to RN/LEGAL OFFICER, or LIP Medical records from recent hospitalization: [facility] 08-18-2023 History of Presen t illness Narrative TRANSITION CARE MANAGEMENT (TCM) INITIAL CONTACT Land Conservation Specialist Outreach Provider Action/FYI: Left message for Darrion deng, to return call Initial contact with patient post discharge, spoke to sister. Patient identified by name and . TRANSITION CARE MANAGEMENT INITIAL OUTREACH DOCUMENTATION: Date of Outreach: 08/18/2023 Outreach Attempt 1: Contact Not Made Date of Discharge 08/15/2023 Some recent data might be hidden SUMMARY: -Pt discharged from [facility] on 08/15/23. -Admitted for: Small Bowel Obstruction Do you have a hospital follow up appointment with your PCP? Appointment on with 08/22/23 with Brayan Wolff MEDICATIONS: Many patients have questions or concerns about their medications once they are home. Were you prescribed any new medications? Yes waiting concrete buster operator from main campus on a medication Were you told to hold any medications? No Were any of your medications discontinued? No Do you have any questions about getting or taking your medications? No Your discharge instructions/After visit Summary (AVS) are important in guiding you through the recovery process. Is there anything I might help you understand? waiting for call back [facility] Do you have all the necessary equipment and supplies at home? No, follow site specific process to secure durable medical equipment and/or supplies for the patient, handoff to RN/LEGAL OFFICER, or LIP Medical records from recent hospitalization: [facility] documented in this encounter [facility] 08-15-2023 Miscellaneous Notes FYI: Elizabeth vitale Oracle Architect with [employer] calls to report that pt is getting discharged today from [facility]. Pt was dx with a small bowel obstruction which has been resolved. Lily Noonan LPN [facility] calls back to let provider know that patient is currently at [facility] ER for bowel obstruction. Catheter has been changed in ER. Christiano reports patient is going to be a transfer to [facility]. Christiano will call back for resumption of care orders once released from hospital. Daniela Nelson RN Christiano from [facility] Home Health calling time for recert for [...] diagnosis. Please advise documented in this encounter [facility] 08-11-2023 Miscellaneous Notes Spoke with Jian Fuentes ( sister Darrion)on August 11, 2023. Patient Update - Darrion stated and informed of patient status Admitted in [facility] since TuesdayAugust 08 with NG Tube with drainage of 500-1000 cc daily . Waiting on a Hospital bed at [facility] per patients request. Ms. Verdugo was made aware that Liz was out of the office until Aug.15 . Discussed while her brother (patient) was admitted into the hospital at [facility] he would be under the Physicians at the hospital care plan and treatment plan until discharge . Ms. Verdugo verbalized understanding. -Maryan Juarez LPN Sis (Darrion) called. Says Jian will be admitted at [facility], but he's waiting on a bed right [...] well. Please advise. documented in this encounter [facility] 08-05-2023 Miscellaneous Notes Talked to patients sister and she understands he needs to drink less pain water and moire electrolytes Ericka Rubin . Sodium is low. Are they watching his fluid intake. Again, limit plain water and use electrolyte drinks etc for now. Recheck bmp in a few weeks. documented in this encounter [facility] 08-03-2023 Note HNO ID: [id number] Author: Lyndon Estes MD Service: ? Author [...] (HCC) Inguinal hernia left - imaging at [place] Sleep apnea Spina bifida (HCC) Urinary retention PAST SURGICAL HISTORY Procedure Laterality Date CRTJ SHUNT [id number] TERMINUS EGD W/O [facility] SPEC VARICIES INJ [...] ICD10: D75.839 - CBC + DIFF Lyndon Estse RTO in six weeks and prn. [facility] 08-03-2023 History of Presen t illness Narrative [...] (HCC) Inguinal hernia left - imaging at [place] Sleep apnea Spina bifida (HCC) Urinary retention PAST SURGICAL HISTORY Procedure Laterality Date CRTJ SHUNT [id number] TERMINUS EGD W/O BRSH SPEC VARICIES INJ [...] weeks and prn. documented in this encounter [facility] 07-13-2023 Miscellaneous Notes Signed and faxed back. Placed on Tommy's desk for review and completion. Sarahy Monet Type of form: Home Health Certification and POC Form received via fax When form is completed, Fax form to [phone] Form has been forwarded to Physician Mailbox: Dr. Tommy Guajardo LPN documented in this encounter [facility] 06-13-2023 Note HNO ID: [id number] Author: Liz Villarreal PA-C Service: ? Author Type: Physician Lacemaker Type: Progress Notes Filed: 06/13/2023 10:17 PM [...] (HCC) Inguinal hernia left - imaging at [place] Sleep apnea Spina bifida (HCC) Urinary retention PAST SURGICAL HISTORY Procedure Laterality Date CRTJ SHUNT [id number] TERMINUS EGD W/O BRSH SPEC VARICIES INJ [...] male presenting with spina bifida, hydrocephalus with CAPONIZER shunt AND is wheelchair-bound who has chronic [...] see the patie (more content not included)... [facility] 06-13-2023 History of Presen t illness Narrative [...] (HCC) Inguinal hernia left - imaging at [place] Sleep apnea Spina bifida (HCC) Urinary retention PAST SURGICAL HISTORY Procedure Laterality Date CRTJ SHUNT [id number] TERMINUS EGD W/O [facility] SPEC VARICIES INJ 08/06/2021 PAST SURGICAL HISTORY [...] male presenting with spina bifida, hydrocephalus with CAPONIZER shunt & is wheelchair-bound who has chronic [...] which included preparing to see the patient, [id number] patient care, completing clinical documentation, obtaining and/or reviewing separately obtained history, performing a medically appropriate examination, counseling and educating the patient/family/caregiver, ordering medications, tests, or procedures, communicating results to the patient/family/caregiver, and care coordination (not separately reported). Liz Villarreal PA-C Neurogastroenterology Section Department of Gastroenterology June 13, 2023 documented in this encounter [facility] 06-13-2023 Miscellaneous Notes Ok. Juan from [facility] calls and states that he did re-certification of patient today. Juan states that detention will visit patient 1 time a month in June and 2 times a month in July. Patient gets catheter changes once every month, and patient will need to be re-certified again at end of July. Please review and advise, Mercy Noonan RN documented in this encounter [facility] 06-09-2023 Miscellaneous Notes Faxed signed orders by Azam Virgen PA-C for urological supplies, bedside drainage bad, to [facility]. Mabel Lopez LPN documented in this encounter [facility] 05-30-2023 Miscellaneous Notes Spoke with Darrion, patients [...] at last ov. documented in this encounter [facility] 05-23-2023 Miscellaneous Notes PHARMACY EMERGENCY DEPARTMENT CULTURE [...] Prior to Admission medications as of 05/20/23 6200 Medication Sig Last Dose Taking sulfamethoxazole-trimethoprim (BACTRIM [...] 2022 10:15am OTC Patient's Preferred Pharmacy: e- [facility]/pharmacy #[id number] [place] [address] - [address] [facility]. - [phone] [phone] Please page/call with any issues or questions. Electronic signature: Lesli Rutherford RPh May 23, 2023 7:55 PM Pager/Extension: [phone] documented in this encounter [facility] 05-23-2023 Miscellaneous Notes Sister made aware Urine culture from ER did come back positive. It is somewhat resistant. Add bactrim. Rx sent documented in this encounter [facility] 05-21-2023 Note HNO ID: [id number] Author: Liz Villarreal PA-C Service: ? Author Type: Physician Lacemaker Type: Progress Notes Filed: 07/28/2023 11:24 PM [...] SURGICAL HISTORY Procedure Laterality Date CRTJ SHUNT [id number] TERMINUS EGD W/O BRSH SPEC VARICIES INJ [...] texture, turgor normal (more content not included)... [facility] 05-20-2023 Miscellaneous Notes Patient's sister notified of same. Placed call to patients sister Darrion. No answer. Left for return call. Sarahy Monet Potassium is normal. His sodium however is very low again. Make sure not drinking plain water. Supplement with things like gatorade etc. Recheck bmp next week documented in this encounter [facility] 05-19-2023 Note HNO ID: [id number] Author: Lyndon Estes MD Service: ? Author Type: Physician Type: Progress Notes Filed: 05/19/2023 4:13 PM Note Text: Patient presents with: Hospital F/U HPI: Patient presents today for office visit for hospital follow up. Admitted into [facility] on 05/09/23 Discharged on 05/16/23 Due to [...] old male with spina bifida, hydrocephalus s/p CAPONIZER shunt placement (at 19 yo in ), neurogenic bladder s/p chronic bowman placement (follows with Dr. Prince at [facility]), who presents on 04/03/2023 as transfer from [facility] for recurrent small bowel obstruction. [...] (HCC) Inguinal hernia left - imaging at [place] Sleep apnea Spina bifida (HCC) Urinary retention PAST SURGICAL HISTORY Procedure Laterality Date CRTJ SHUNT [id number] TERMINUS EGD W/O BRSH SPEC VARICIES INJ [...] hydrocephalus, unspecified s (more content not included)... [facility] 05-19-2023 History of Presen t illness Narrative Patient presents with: Hospital F/U HPI: Patient presents today for office visit for hospital follow up. Admitted into [facility] on 05/09/23 Discharged on 05/16/23 Due to [...] old male with spina bifida, hydrocephalus s/p CAPONIZER shunt placement (at 19 yo in ), neurogenic bladder s/p chronic bowman placement (follows with Dr. Prince at [facility]), who presents on 04/03/2023 as transfer from [facility] for recurrent small bowel obstruction. [...] (HCC) Inguinal hernia left - imaging at [place] Sleep apnea Spina bifida (HCC) Urinary retention PAST SURGICAL HISTORY Procedure Laterality Date CRTJ SHUNT [id number] TERMINUS EGD W/O BRSH SPEC VARICIES INJ [...] Lyndon Estes MD documented in this encounter [facility] 05-18-2023 Miscellaneous Notes Called sister Lesli notified [...] hospital again. Needs labs done. Shruthi from [facility] HH calls to report that detention had gone out to see patient on 05/16 to resume HH after patient was discharged from hospital. Patient is supposed to be getting labs drawn for renal function. Patient had family is not wanting home health to come and do this. Patient and family is only wanting detention to come out to only change the bowman catheter. This needs to be changed again on 05/30 Patient was prescribed erythromycin ethylsuccinate 200 mg/5ml suspension which patient is supposed to be taking 2.5 mL TID and metoclopramide 5 mg tablet which patient is supposed to be taking every 6 hours. Patient and family went to pharmacy and did not olive picker both medications due to cost. Patient has hospital follow up appointment with Dr. Estes on 05/19/2023 which patient and family are supposed to discuss the above with provider. Mercy Noonan RN documented in this encounter [facility] 05-18-2023 Miscellaneous Notes Yvette from [facility] reports pt was hospitalized 05/09 - 05/16/2023 & has a FU appt 05/19/23. Pt's sister is asking for a list of high potassium foods when she brings pt in for his appt. Felicita Kennedy LPN documented in this encounter [facility] 05-04-2023 Note HNO ID: [id number] Author: Giselle Reese RN Service: ? Author Type: Registered Nurse Type: Progress Notes Filed: 05/04/2023 2:42 PM Note Text: TRANSITION CARE MANAGEMENT (TCM) FOLLOW-UP NOTE Provider Action/FYI Chart reviewed. Unable to reach pt/pts sister Darrion for TCM follow-up call, left voicemail. Will continue to follow. Summary: Pt discharged from [facility] on 04/06/23. Admitted for: small bowel obstruction PMHx spina bifida, hydrocephalus s/p CAPONIZER shunt placement, s/p chronic bowman placement Signature Giselle Reese RN May 04, 2023 [facility] 05-04-2023 History of Presen t illness Narrative TRANSITION CARE MANAGEMENT (TCM) FOLLOW-UP NOTE Provider Action/FYI Chart reviewed. Unable to reach pt/pts sister Darrion for TCM follow-up call, left voicemail. Will continue to follow. Summary: Pt discharged from [facility] on 04/06/23. Admitted for: small bowel obstruction PMHx spina bifida, hydrocephalus s/p CAPONIZER shunt placement, s/p chronic bowman placement Signature Giselle Reese RN May 04, 2023 documented in this encounter [facility] 05-04-2023 Note Patient Outreach (AM [facility]) JIAN FUENTES ([id number]) 1965 M Date Time Provider Department 05/04/23 GISELLE REESE During your visit today, we recorded the following information about you: Giselle Reese RN 05/04/2023 2:42 PM Signed TRANSITION CARE MANAGEMENT (TCM) FOLLOW-UP NOTE Provider Action/FYI Chart reviewed. Unable to reach pt/pts sister Darrion for TCM follow-up call, left voicemail. Will continue to follow. Summary: Pt discharged from [facility] on 04/06/23. Admitted for: small bowel obstruction PMHx spina bifida, hydrocephalus s/p CAPONIZER shunt placement, s/p chronic bowman placement Signature [...] PALSY - INFANTILE) HEMIPLEGIA, CON*02/02/2008 05/22/2013 Myelodysplasia [[id number]] 05/22/2013 Deformity of ankle and foot, acquired [...] Encounter Status:Closed by GISELLE REESE on 05/04/23 [facility] 04-20-2023 Note HNO ID: [id number] Author: Giselle Reese RN Service: ? Author [...] Status: In-Network Discharge Summary: Pt discharged from [facility] on 04/06/23. Admitted for: small bowel obstruction PMHx spina bifida, hydrocephalus s/p CAPONIZER shunt placement, s/p chronic bowman placement Signature Giselle Reese RN April 20, 2023 [facility] 04-20-2023 History of Presen t illness Narrative [...] Status: In-Network Discharge Summary: Pt discharged from [facility] on 04/06/23. Admitted for: small bowel obstruction PMHx spina bifida, hydrocephalus s/p CAPONIZER shunt placement, s/p chronic bowman placement Signature Giselle Reese RN April 20, 2023 documented in this encounter [facility] 04-20-2023 Note Patient Outreach (AM [facility]) JIAN FUENTES ([id number]) 1965 M Date Time Provider Department 04/20/23 [...] In-Network Discharge Summary: Pt discharged from Main [place] on 04/06/23. Admitted for: small bowel obstruction PMHx spina bifida, hydrocephalus s/p CAPONIZER shunt placement, s/p chronic bowman placement Signature [...] PALSY - INFANTILE) HEMIPLEGIA, CON*02/02/2008 05/22/2013 Myelodysplasia [[id number]] 05/22/2013 Deformity of ankle and foot, acquired [...] Encounter Status:Closed by GISELLE REESE on 04/20/23 [facility] 04-15-2023 Miscellaneous Notes Notified. Ok to do Bushra with [facility] asking provider for order to allow Shelter to see patient monthly for catheter changes; 1 month x 1, then 2 months x 1. Please call Bushra at [phone]. Thank you. documented in this encounter [facility] 04-07-2023 Note Patient Outreach (AM [facility]) JIAN FUENTES ([id number]) 1965 M Date Time Provider Department 04/07/23 GISELLE REESE During your visit today, we recorded the following information about you: Giselle Reese RN 04/07/2023 10:14 AM Signed TCM Home Visit Referral Source of Stratification: [facility] Admission Status: Discharged Readmission Risk Score: 17 SHAMA Score: 8 Patient meets program referral criteria: No Patient does not qualify for High Risk TCM Home Visit program due to: Discharged home, does not meet program criteria Giselle Reese RN April 07, 2023 10:14 AM TRANSITIONAL CARE MANAGEMENT (TCM) COMMUNITY MONITORING PROGRAM Provider Action/FYI: PMHx spina bifida, hydrocephalus s/p CAPONIZER shunt placement, s/p chronic bowman placement Spoke with pts sister Ramsey, she is primary caregiver and lives with him, she states pt does not c/o pain, no sob, still burping a lot, had small stool last night, she is keeping him on full liquid diet today then she said she would advance as tolerated-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 TCM Eligible until 04/20/23 Thank you SUMMARY: Discharge Network Status: In-Network Discharge Pt discharged from [facility] on 04/06/23. Admitted for: small bowel obstruction Contact made with patient: Yes Hi my name is Giselle Reese RN and I am calling from the [facility] on behalf of your PCP, Lyndon Estes [...] like to speak with a social work meat service team member to help give you support [...] I will send your request to a rehabilitation aide/scheduler who will contact and assist you with that appointment. This will give you an opportunity to ask any questions or address any concerns you may have with your PCP. Inform the patient that if they have any questions or concerns prior to that appointment, to call their PCP's office right away. ACTION TAKEN: Patient desires an appointment - Routed to [facility] [[id number]] for scheduling telehealth visit (telephonic, virtual visit, [...] emergency symptoms, pro (more content not included)... [facility] 04-07-2023 Note HNO ID: [id number] Author: Kaitlynn Mitchell MA Service: ? Author Type: Land Conservation Specialist Type: Progress Notes Filed: 04/07/2023 11:04 AM Note Text: POPULATION HEALTH NAVIGATION OUTREACH Action/FYI April 07, 2023 Spoke with pt's sisterLesli. Pt scheduled for hospital follow up appt on 04/14/23 with PCP. Contact: Lesli Bansal (Sister) [phone] (Home Phone TCM eligible through 04/20/23 Pt discharged from [facility] on 04/06/23 Admitted for: small bowel obstruction Patient Identified by Name and : YES, via phone Outreach Outcome/Action Spoke to patient / parent / legal guardian: Patient scheduled Did you use a PCP flex slot to schedule this appointment? No Reason for Outreach Community Monitoring Pool Payer: Payor: [employer] AND [employer] / Plan: [employer] HMO / Product Type: HMO / Care Gap Reviewed:: Follow-up appointment Reminder: Reminder note to check Health Maintenance for items below Health Maintenance items due: COLORECTAL CANCER SCREENING due on 03/27/2022 COVID-19 VACCINE(4 - Booster for Moderna series) due on 06/14/2022 Navigation Signature: Kaitlynn Mitchell MA April 07, 2023 10:52 AM [facility] 04-07-2023 Note HNO ID: [id number] Author: Giselle Reese RN Service: ? Author Type: Registered Nurse Type: Progress Notes Filed: 04/07/2023 10:14 AM Note Text: TCM Home Visit Referral Source of Stratification: TCM [facility] Admission Status: Discharged Readmission Risk Score: 17 SHAMA Score: 8 Patient meets program referral criteria: No Patient does not qualify for High Risk TCM Home Visit program due to: Discharged home, does not meet program criteria Giselle Resee RN April 07, 2023 10:14 AM TRANSITIONAL CARE MANAGEMENT (TCM) COMMUNITY MONITORING PROGRAM Provider Action/I: PMHx spina bifida, hydrocephalus s/p CAPONIZER shunt placement, s/p chronic bowman placement Spoke with pts sister Ramsey, she is primary caregiver and lives with him, she states pt does not c/o pain, no sob, still burping a lot, had small stool last night, she is keeping him on full liquid diet today then she said she would advance as tolerated-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 TCM Eligible until 04/20/23 Thank you SUMMARY: Discharge Network Status: In-Network Discharge Pt discharged from Main [place] on 04/06/23. Admitted for: small bowel obstruction Contact made with patient: Yes Hi my name is Giselle Reese RN and I am calling from the [facility] on behalf of your PCP, Lyndon Estes [...] like to speak with a social work meat service team member to help give you support [...] I will send your request to a rehabilitation aide/scheduler who will contact and assist you with that appointment. This will give you an opportunity to ask any questions or address any concerns you may have with your PCP. Inform the patient that if they have any questions or concerns prior to that appointment, to call their PCP's office right away. ACTION TAKEN: Patient desires an appointment - Routed to [facility] [[id number]] for scheduling telehealth visit (telephonic, virtual visit, [...] if possible). IRENE Education Ordered -: No [facility] 04-06-2023 Note HNO ID: [id number] Author: Arian Nichols RN Service: Care Management [...] Primary Care Physician Name/Phone: Lyndon Estes MD [phone] Patient d/c ready to home with no skilled needs identified. Patient and bedside RN aware of plan. Family to transport patient home via private auto. SIGNATURE: Arian Nichols RN PATIENT NAME: Jian Fuentes DATE: April 07, 2023 TIME: 8:42 AM CONTACT #: [phone] [facility] 04-06-2023 Note HNO ID: [id number] Author: Roscoe Dejesus MD Service: General Surgery Author Type: Resident Type: Progress Notes Filed: 04/06/2023 10:38 AM Note Text: GENERAL SURGERY SERVICE PROGRESS NOTE Jian Fuentes [id number] ASSESSMENT: Jian Fuentes is 57 year old PMHx spina bifida, hydrocephalus s/p CAPONIZER shunt placement (at 19 yo in ), neurogenic bladder s/p chronic bowman placement (follows with Dr. Prince at [facility]), and bilateral asymptomatic inguinal hernias who presented as transfer from [facility] for recurrent small bowel obstructions. [...] Acute Care Surgery (ACS) Day Floor Pager: [phone] Acute Care Surgery (ACS) Day Consults Pager: [phone] On nights (6 pm to 6 am) and on Weekends/Holidays, please page the on-call pager: [phone] Subjective INTERVAL HPI: NG tube removed yesterday [...] 0659 04/06/23 0700 - 04/07/23 0659 Shift 1928-3176 6938-0342 5710-5814 24 Hour Total 9209-4528 7459-0785 4837-0449 24 Hour Total INTAKE PO 0 0 PO 0 0 IV 1600 362 417 2051 Volume (mL) (levoFLOXacin iv piggyback 750 mg in D5W 150 mL (LEVAQUIN)) 150 150 Volume (mL) (lactated ringers iv infusion) 1450 037 235 0468 Shift Total 1600 142 254 5779 OUTPUT Urine 650 5726 905 9324 Output ( Indwelling Urinary Catheter 04/03/23 0240 Admission to [facility]) 650 9562 088 6567 Emesis 0 0 Emesis (ml) 0 0 Tubes 100 100 Output ([REMOVED] GI Feed 04/03/23 0241 Admission to [facility] Gastric Left Naris 04/05/23 1745) 100 100 # of BMs Number of BMs 0 x 2 x 2 x Shift Total 750 5170 603 3199 Weight (kg) 58 58 58 58 58 58 58 58 Lines, Drains, and Airways Line Duration Peripheral 04/06/23 1006 Right Arm 22 Gauge <1 day Drain Duration Indwelling Urinary Catheter 04/03/23 0240 Admission to [facility] 3 days OBJECTIVE: BP 154/90 Pulse 90 [...] Anesthesia Type: * LAPAROSCOPY DIAGNOSTIC - General [facility] 04-05-2023 Note HNO ID: [id number] Author: Saravanan Interiano MD Service: General Surgery [...] Hyperkalemia x Other, please specify hypokalemia _ [facility] 04-05-2023 Miscellaneous Notes Maru Prakash Editor School Photograph- phoned to let pcp know, patient went to [facility] ER and was admitted on 04-02-23 with intestinal obstruction and UTI, then transferred to [facility] Main on 04-03-23. Possible discharge tomorrow, 04-06-23 as the obstruction is resolving and will not need surgery. documented in this encounter [facility] 04-05-2023 Note HNO ID: [id number] Author: Saravanan Interiano MD Service: General Surgery Author Type: Resident Type: Progress Notes Filed: 04/05/2023 9:01 AM Note Text: GENERAL SURGERY SERVICE PROGRESS NOTE Jian Fuentes [id number] ASSESSMENT: Jian Fuentes is 57 year old PMHx spina bifida, hydrocephalus s/p CAPONIZER shunt placement (at 19 yo in ), neurogenic bladder s/p chronic bowman placement (follows with Dr. Prince at [facility]), and bilateral asymptomatic inguinal hernias who presented as transfer from [facility] for recurrent small bowel obstructions. [...] Acute Care Surgery (ACS) Day Floor Pager: [phone] Acute Care Surgery (ACS) Day Consults Pager: [phone] On nights (6 pm to 6 am) and on Weekends/Holidays, please page the on-call pager: [phone] Subjective INTERVAL HPI: NAEON NGT with 100 cc Objective BP 136/76 Pulse 75 Temp (Src) 97.9 (Axillary) Resp 16 Ht 5' 3 (1.60m) Wt 127 lb 13.9 oz (58.0kg) SpO2 95% BMI 22.66 kg/(m2). O2 Therapy: Room Air Date 04/04/23 07 - 04/05/23 0659 04/05/23 07 - 04/06/23 0659 Shift 5820-9994 4336-9329 9551-1341 24 Hour Total 5348-3269 4002-6782 1042-1332 24 Hour Total INTAKE PO 0 0 [...] 990 0 0 990 OUTPUT Urine 750 0026 409 6973 Output ( Indwelling Urinary Catheter 04/03/23239 Admission to Hospital [facility]) 750 5316 483 0079 Emesis 0 0 Emesis (ml) 0 0 [...] Indwelling Urinary Catheter 04/03/23239 Admission to Hospital [facility] 2 days OBJECTIVE: BP 136/76 Pulse 75 [...] Anesthesia Type: * LAPAROSCOPY DIAGNOSTIC - General [facility] 04-04-2023 Note HNO ID: [id number] Author: Arian Nichols RN Service: Care Management [...] Admission Status: Inpatient Insurance Provider: [facility] Discharge Planning requested by: Attending Provider Potential Transition Plans To Be Determined Advance Directives Current Advance Directive: Health Care Power of Facepiece Line Supervisor In Chart: No Current Living Arrangements and [...] Be able to go home, General wellness [place] Explained: [place] Given: No Reason Not Given: [...] male with PMHx spina bifida, hydrocephalus s/p CAPONIZER shunt placement (at 19 yo in ), neurogenic bladder s/p chronic bowman placement who was transferred 04/03 from [facility] for recurrent small bowel obstructions. Needs TBD. Family to transport at D/C. SIGNATURE: Arian Nichols RN PATIENT NAME: Jian Fuentes DATE: April 04, 2023 TIME: 3:16 PM CONTACT #: [phone] [facility] 04-04-2023 Note HNO ID: [id number] Author: Johanna Read RT(R) Service: Radiology Author [...] Read, RT(R) April 04, 2023 10:53 AM [facility] 04-04-2023 Note HNO ID: [id number] Author: Saravanan Interiano MD Service: General Surgery Author Type: Resident Type: Progress Notes Filed: 04/04/2023 8:44 AM Note Text: GENERAL SURGERY SERVICE PROGRESS NOTE Jian Fuentes [id number] ASSESSMENT: Jian Fuentes is 57 year old PMHx spina bifida, hydrocephalus s/p CAPONIZER shunt placement (at 19 yo in ), neurogenic bladder s/p chronic bowman placement (follows with Dr. Prince at [facility]), and bilateral asymptomatic inguinal hernias who presented as transfer from [facility] for recurrent small bowel obstructions. [...] Acute Care Surgery (ACS) Day Floor Pager: [phone] Acute Care Surgery (ACS) Day Consults Pager: [phone] On nights (6 pm to 6 am) and on Weekends/Holidays, please page the on-call pager: [phone] Subjective INTERVAL HPI: NAEON NGT with 750 cc Objective BP 140/74 Pulse 81 Temp (Src) 98.6 (Axillary) Resp 16 Ht 5' 3 (1.60m) Wt 127 lb 13.9 oz (58.0kg) SpO2 95% BMI 22.66 kg/(m2). O2 Therapy: Room Air Date 04/03/23 07 - 04/04/23 0659 04/04/23 07 - 04/05/23 0659 Shift 9150-8194 6756-0709 9622-5724 24 Hour Total 1640-8407 0068-9860 4633-4780 24 Hour Total INTAKE PO 0 0 PO 0 0 IV 177 205 4851 Volume (mL) (levoFLOXacin iv piggyback 750 mg in D5W 150 mL (LEVAQUIN)) 150 150 Volume (mL) (potassium chloride iv piggyback 20 mEq/100 mL) 200 200 Volume (mL) (lactated ringers iv infusion) 900 900 Shift Total 350 0 900 1250 OUTPUT Urine 350 311 794 9346 Output ( Indwelling Urinary Catheter 04/03/23239 Admission to [facility]) 350 571 565 9828 Tubes 0 500 250 750 Output (GI [...] Anesthesia Type: * LAPAROSCOPY DIAGNOSTIC - General [facility] documented as of this encounter (statuses as of 04/14/2023) [facility]05-21-2023 History of Past illness Narrative* Problem Noted Date Resolved Date Small bowel obstruction 04/03/2023 04/06/20 23 CP (CEREBRAL PALSY - INFANTILE) HEMIPLEGIA, TESFAYE ENITAL 02/02/2008 05/22/2013 documented as of this encounter (statuses as of 04/15/2023) [facility]05-21-2023 History of Past illness Narrative* Problem Noted Date Resolved Date Small bowel obstruction 04/03/2023 04/06/20 23 CP (CEREBRAL PALSY - INFANTILE) HEMIPLEGIA, TESFAYE ENITAL 02/02/2008 05/22/2013 documented as of this encounter (statuses as of 04/21/2023) [facility]05-21[facility]2023 History of Past illness Narrative* Problem Noted Date Resolved Date Small bowel obstruction 04/03/2023 04/06/20 23 CP (CEREBRAL PALSY - INFANTILE) HEMIPLEGIA, TESFAYE ENITAL 02/02/2008 05/22/2013 documented as of this encounter (statuses as of 05/04/2023) [facility]2023 History of Past illness Narrative* Problem Noted Date Resolved Date Small bowel obstruction 04/03/2023 04/06/20 23 CP (CEREBRAL PALSY - INFANTILE) HEMIPLEGIA, TESFAYE ENITAL 02/02/2008 05/22/2013 documented as of this encounter (statuses as of 05/19/2023) [facility]21[facility]2023 History of Past illness Narrative* Problem Noted Date Resolved Date Small bowel obstruction 04/03/2023 04/06/20 23 SBO (small bowel obstruction) 04/14/2022 CP (CEREBRAL PALSY - INFANTILE) HEMIPLEGIA, TESFAYE ENITAL 02/02/2008 05/22/2013 documented as of this encounter (statuses as of 05/20/2023) [facility]23 History of Past illness Narrative* Problem Noted Date Resolved Date Small bowel obstruction 04/03/2023 04/06/20 23 SBO (small bowel obstruction) 04/14/2022 CP (CEREBRAL PALSY - INFANTILE) HEMIPLEGIA, TESFAYE ENITAL 02/02/2008 05/22/2013 documented as of this encounter (statuses as of 05/20/2023) [facility]23 History of Past illness Narrative* Problem Noted Date Diagnosed Date Resolved Date Small bowel obstruction 04/03/202303/15 SBO (small bowel obstruction) 04/14/2022 05/19/2023 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, 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 05/22/2013 documented as of this encounter (statuses as of 05/24/2023) [facility] History of Past illness Narrative* Problem Noted Date Diagnosed Date Resolved Date Small bowel obstruction 04/03/202303/15 SBO (small bowel obstruction) 04/14/2022 05/19/2023 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, 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 05/22/2013 documented as of this encounter (statuses as of 05/30/2023) [facility]23 History of Past illness Narrative* Problem Noted Date Diagnosed Date Resolved Date Small bowel obstruction 04/03/202303/15 SBO (small bowel obstruction) 04/14/2022 05/19/2023 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, 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 05/22/2013 documented as of this encounter (statuses as of 06/10/2023) [facility] History of Past illness Narrative* Problem Noted Date Diagnosed Date Resolved Date Small bowel obstruction 04/03/20232 02/2023 SBO (small bowel obstruction) 04/14/2022 05/19/2023 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, 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 05/22/2013 documented as of this encounter (statuses as of 06/14/2023) [facility] History of Past illness Narrative* Problem Noted Date Diagnosed Date Resolved Date Small bowel obstruction 04/03/202303/15 SBO (small bowel obstruction) 04/14/2022 05/19/2023 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, 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 05/22/2013 documented as of this encounter (statuses as of 06/14/2023) [facility]23 History of Past illness Narrative* Problem Noted Date Diagnosed Date Resolved Date Small bowel obstruction 04/03/202303/15 SBO (small bowel obstruction) 04/14/2022 05/19/2023 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, 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 05/22/2013 documented as of this encounter (statuses as of 06/29/2023) [facility]2023 History of Past illness Narrative* Problem Noted Date Diagnosed Date Resolved Date Small bowel obstruction 04/03/202303/15 SBO (small bowel obstruction) 04/14/2022 05/19/2023 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, 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 05/22/2013 documented as of this encounter (statuses as of 07/05/2023) [facility] History of Past illness Narrative* Problem Noted Date Diagnosed Date Resolved Date Small bowel obstruction 04/03/202303/15 SBO (small bowel obstruction) 04/14/2022 05/19/2023 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, 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 05/22/2013 documented as of this encounter (statuses as of 07/13/2023) [facility]2023 History of Past illness Narrative* Problem Noted Date Diagnosed Date Resolved Date Small bowel obstruction 04/03/202303/15 SBO (small bowel obstruction) 04/14/2022 05/19/2023 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, 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 05/22/2013 documented as of this encounter (statuses as of 08/04/2023) [facility] History of Past illness Narrative* Problem Noted Date Diagnosed Date Resolved Date Small bowel obstruction 04/03/20232 02/2023 SBO (small bowel obstruction) 04/14/2022 05/19/2023 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, 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 05/22/2013 documented as of this encounter (statuses as of 08/05/2023) [facility]2023 History of Past illness Narrative* Problem Noted Date Diagnosed Date Resolved Date Small bowel obstruction 04/03/20232 02/2023 SBO (small bowel obstruction) 04/14/2022 05/19/2023 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, 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 05/22/2013 documented as of this encounter (statuses as of 08/12/2023) [facility]2023 History of Past illness Narrative* Problem Noted Date Diagnosed Date Resolved Date Small bowel obstruction 04/03/202303/15 SBO (small bowel obstruction) 04/14/2022 05/19/2023 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, 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 05/22/2013 documented as of this encounter (statuses as of 08/16/2023) [facility]21[facility]2023 History of Past illness Narrative* Problem Noted Date Diagnosed Date Resolved Date Small bowel obstruction 04/03/2023 05/2 02/2023 SBO (small bowel obstruction) 04/14/2022 05/19/2023 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, 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 05/22/2013 documented as of this encounter (statuses as of 08/20/2023) [address]21-2023 History of Past illness Narrative* Problem Noted Date Diagnosed Date Resolved Date Small bowel obstruction 04/03/20232 02/2023 SBO (small bowel obstruction) 04/14/2022 05/19/2023 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, 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 05/22/2013 documented as of this encounter (statuses as of 08/20/2023) [facility]23 History of Past illness Narrative* Problem Noted Date Diagnosed Date Resolved Date Small bowel obstruction 04/03/202303/15 SBO (small bowel obstruction) 04/14/2022 05/19/2023 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, 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 05/22/2013 documented as of this encounter (statuses as of 09/05/2023) [facility]05[facility]21[facility]2023 History of Past illness Narrative* Problem Noted Date Diagnosed Date Resolved Date Small bowel obstruction 04/03/202303/15 SBO (small bowel obstruction) 04/14/2022 05/19/2023 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, 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 05/22/2013 documented as of this encounter (statuses as of 09/07/2023) [facility]05-21-2023 NoteHNO ID: [id number] Author: Татьяна Hernandez MD Service: General Surgery Author Type: Resident Type: Progress Notes Filed: 04/03/2023 12:15 PM Note Text: GENERAL SURGERY SERVICE PROGRESS NOTE Jian Fuentes [id number] ASSESSMENT: Jian Fuentes is 57 year old PMHx spina bifida, hydrocephalus s/p CAPONIZER shunt placement (at 19 yo in ), neurogenic bladder s/p chronic bowman placement (follows with Dr. Prince at [facility]), and bilateral asymptomatic inguinal hernias who presented as transfer from [facility] for recurrent small bowel obstructions. [...] Acute Care Surgery (ACS) Day Floor Pager: [phone] Acute Care Surgery (ACS) Day Consults Pager: [phone] On nights (6 pm to 6 am) and on Weekends/Holidays, please page the on-call pager: [phone] Subjective INTERVAL HPI: NAEON since admission Objective BP 135/83 Pulse 85 Temp (Src) 98.1 (Oral) Resp 18 Ht 5' 3 (1.60m) Wt 127 lb 13.9 oz (58.0kg) SpO2 97% BMI 22.66 kg/(m2). O2 Therapy: Room Air Date 04/02/23 07 - 04/03/23 06(Not Admitted) 04/03/23 07 - 04/04/23 0659 Shift 3495-7660 3884-1763 5892-8369 24 Hour Total 1261-4635 2251-2903 1925-4541 24 Hour Total INTAKE IV 200 200 [...] <1 day SURGERY/PROCEDURE: * Surgery not found *[facility]04-25-2023 NoteHNO ID: [id number] Author: Katiana Hoyos RN Service: ? Author Type: Registered Nurse Type: Progress Notes Filed: 03/08/2023 3:04 PM Note Text: TRANSITION CARE MANAGEMENT (TCM) FOLLOW-UP NOTE Provider Action/FYI Discharge Network Status: Qeg-of-Cubjbar (OON) Discharge Summary: Pt discharged from [facility] on 02/24/23. Admitted for: Ileus, UTI Concerns: Attempted to reach pt for TCM follow up, left for sister Lesli with CC contact information. Encouraged to contact PCP for questions or concerns. Alterations Supervisor plan for next outreach: Will continue to follow during TCM 30 day period Signature [facility] 08[facility] of Present illness Narrative* Katiana Hoyos RN - 03/08/2023 3:00 PM EDT TRANSITION CARE MANAGEMENT (TCM) FOLLOW-UP NOTE Provider Action/FYI Discharge Network Status: Xjp-os-Auwezfa (OON) Discharge Summary: Pt discharged from [facility] on 02/24/23. Admitted for: Ileus, UTI Concerns: Attempted to reach pt for TCM follow up, VM left for sister Lesli with CC contact information. Encouraged to contact PCP for questions or concerns. Alterations Supervisor plan for next outreach: Will continue to follow during TCM 30 day period Signature Katiana Hoyos RN March 08, 2023 documented in this encounterFirelands [facility]04-[facility]-2023 NotePatient Outreach (AMBCMG) JIAN FUENTES ([id number]) 1965 M Date Time Provider Department 03/08/23 KATIANA HOYOS During your visit today, we recorded the following information about you: Katiana Hoyos RN 03/08/2023 3:04 PM Signed TRANSITION CARE MANAGEMENT (TCM) FOLLOW-UP NOTE Provider Action/FYI Discharge Network Status: Nse-vp-Lnlefzv (OON) Discharge Summary: Pt discharged from [facility] on 02/24/23. Admitted for: Ileus, UTI Concerns: Attempted to reach pt for TCM follow up, VM left for sister Lesli with CC contact information. Encouraged to contact PCP for questions or concerns. Alterations Supervisor plan for next outreach: Will continue to [...] PALSY - INFANTILE) HEMIPLEGIA, CON*02/02/2008 05/22/2013 Myelodysplasia [[id number]] 05/22/2013 Deformity of ankle and foot, acquired [...] 07/16/2022 Encounter Status:Closed by KATIANA HOYOS on 03/08/23[facility] 03-03-2023 NoteHNO ID: [id number] Author: Kaitlynn Mitchell MA Service: ? Author Type: Land Conservation Specialist Type: Progress Notes Filed: 03/03/2023 10:04 AM Note Text: POPULATION HEALTH NAVIGATION OUTREACH Action/March 03, 2023 2nd attempt - spoke with pt's sister who declines appt at this time. Sister states she will contact PCP's office directly with any updates or to schedule if she feels the need. TCM eligible through 03/10/23 Pt discharged from [facility] on 02/24/23. Admitted for: Ileus, UTI Patient Identified by Name and : YES, via phone Outreach Outcome/Action Spoke to patient / parent / legal guardian: Patient declined Did you use a PCP flex slot to schedule this appointment? N/A Reason for Outreach [facility] Monitoring [place] Payer: Payor: SUZY PERDUE / Plan: ANTHEM MEDIBLUE HMO / Product Type: HMO / Care Gap Reviewed:: Follow-up appointment Reminder: Reminder note to check Health Maintenance for items below Health Maintenance items due: COLORECTAL CANCER SCREENING due on 03/27/2022 COVID-19 VACCINE(4 - Booster for Moderna series) due on 06/14/2022 Navigation Signature: Kaitlynn Mitchell MA March 03, 2023 9:56 [facility]04-18-2023 NoteHNO ID: [id number] Author: Ros Paez MA Service: ? Author Type: Land Conservation Specialist Type: Progress Notes Filed: 03/01/2023 5:11 PM Note Text: POPULATION HEALTH NAVIGATION OUTREACH Action/March 01, 2023 Pt discharged from [facility] on 02/24/23. Admitted for: Ileus, [...] schedule this appointment? N/A Reason for Outreach [facility] [place] Payer: Payor: SUZY PERDUE / Plan: ANTHEM MEDIBLUE HMO / Product Type: HMO / Care Gap Reviewed:: Follow-up appointment Reminder: Reminder note to check Health Maintenance for items below Health Maintenance items due: COLORECTAL CANCER SCREENING due on 03/27/2022 COVID-19 VACCINE(4 - Booster for Moderna series) due on 06/14/2022 Navigation Signature: Ros Paez MA March 01, 2023 5:00 [facility]04-18-2023 NoteHNO ID: [id number] Author: Katiana Hoyos RN Service: ? Author Type: Registered Nurse Type: Progress Notes Filed: 03/01/2023 4:56 PM Note Text: TRANSITIONAL CARE MANAGEMENT [facility] COMMUNITY MONITORING PROGRAM Provider Action/FYI: PCP Pt discharged from [facility] on 02/24/23. Admitted for: Ileus, [...] with his urologist who is at the [facility] concerning your bladder stone -Sister will contact Dr. Nazario's office tomorrow Navigation Team Please assist with scheduling [facility] Discharge Follow up. TCM Eligible until 03/10/23. OON DC Thank you SUMMARY: Discharge Network Status: Bci-ui-Qgoaggf (OON) Discharge Pt discharged from [facility] on 02/24/23. Admitted for: Ileus, UTI Contact made with patient: Yes Hi my name is Katiana Hoyos RN and I am calling from the [facility] on behalf of your PCP, Lyndon Estes [...] like to speak with a social work meat service team member to help give you support [...] I will send your request to a rehabilitation aide/scheduler who will contact and assist you with that appointment. This will give you an opportunity to ask any questions or address any concerns you may have with your PCP. Inform the patient that if they have any questions or concerns prior to that appointment, to call their PCP's office right away. ACTION TAKEN: Patient desires an appointment - Routed to [facility] [[phone]] for scheduling telehealth visit (telephonic, virtual visit, [...] symptoms, proceed to Rohini (more content not included)...[facility]04-18-2023 NotePatient Outreach ([facility]BCMG) JIAN FUENTES ([id number]) 1965 M Date Time Provider Department 03/01/23 KATIANA HOYOS During your visit today, we recorded the following information about you: Katiana Hoyos RN 03/01/2023 4:56 PM Signed TRANSITIONAL CARE MANAGEMENT (TCM) COMMUNITY MONITORING PROGRAM Provider Action/FYI: PCP Pt discharged from [facility] on 02/24/23. Admitted for: Ileus, [...] with his urologist who is at the [facility] concerning your bladder stone -Sister will contact Dr. Nazario's office tomorrow Navigation Team Please assist with scheduling TCM Hospital Discharge Follow up. TCM Eligible until 03/10/23. OON DC Thank you SUMMARY: Discharge Network Status: Ivh-qk-Gfsqsyv (OON) Discharge Pt discharged from [facility] on 02/24/23. Admitted for: Ileus, UTI Contact made with patient: Yes Hi my name is Katiana Hoyos RN and I am calling from the [facility] on behalf of your PCP, Lyndon Estes [...] like to speak with a social work meat service team member to help give you support [...] I will send your request to a rehabilitation aide/scheduler who will contact and assist you with that appointment. This will give you an opportunity to ask any questions or address any concerns you may have with your PCP. Inform the patient that if they have any questions or concerns prior to that appointment, to call their PCP's office right away. ACTION TAKEN: Patient desires an appointment - Routed to [facility] [[id number]] for scheduling telehealth visit (telephonic, virtual visit, [...] do so. For a (more content not included)...[facility]04-14-2023 Miscellaneous Notes * Telephone Encounter - Lesli Burton Ma - 02/25/2023 1:04 PM EDT Marisabel was notified with provider response Lesli Burton Ma * Telephone Encounter - Lyndon Estes MD - 02/25/2023 12:55 PM EDT ok * Telephone Encounter - Juan Daniel Finn RN - 02/25/2023 12:48 PM EDT Marisabel, [facility], reports patient was discharged yesterday from [facility] with orders for HHC. Marisabel spoke with sister, who is caregiver, and requested delay / resumption of care until 02-28-23. Please phone Marisabel with verbal approval. documented in this encounterFirelands [facility]04-12-2023 Miscellaneous Notes* Telephone Encounter - Juan Daniel Finn RN - 02/23/2023 8:09 AM EDT Aurelio Prakash- phoned to let pcp know, patient was admitted to [facility] on 02-20-23 with ileus and is still an inpatient. documented in this encounterFirelands Regional Medical [facility]04-06-2023 Miscellaneous Notes* Telephone Encounter - Kishor Briseno - 02/17/2023 10:54 AM EDT Patient's request for medication is as follows: Requested Prescriptions Pending Prescriptions Disp Refills linaCLOtide (LINZESS) 290 mcg capsule 30 capsule 3 Sig: Take 1 capsule by mouth DAILY (6 AM). Please send this med to [facility] pharmacy in [place], [place] on [address]. documented in this encounterFirelands Regional Medical Center [facility]04-05-2023 Miscellaneous Notes* Telephone Encounter - Kaylee Greenberg LPN - 02/16/2023 12:27 PM EDT Completed and faxed. * Telephone Encounter - Rich Guajardo LPN - 02/16/2023 10:22 AM EDT Type of form: Home Health Care Orders Form received via fax When form is completed, Fax form to [phone] Form has been forwarded to Physician Mailbox: Dr. Tommy Guajardo LPN documented in this encounterFirelands Regional Medical [facility]03-31-2023 Miscellaneous Notes* Telephone Encounter - Kaylee Greenberg LPN - 02/11/2023 4:44 PM EDT Signed and faxed as requested. * Telephone Encounter - Rich Guajardo LPN - 02/11/2023 3:16 PM EDT Type of form: Home Health Care Orders Form received via fax When form is completed, Fax form to [phone] Form has been forwarded to Physician Mailbox: Dr. Tommy Guajardo LPN documented in this encounterFirelands Regional Medical Center [facility]03-31-2023 Miscellaneous Notes* Telephone Encounter - Daniela Nelson RN - 02/11/2023 12:20 PM EDT Moriah calling from [facility] to report plan of care for patient and SN will visit patient 1 time a monthfor a month and 1 times a week for 2 weeks. SN will work with patient on bowman placement, disease management, and medication education. Moriah reports no call back needed if provider agrees with POC. Daniela Nelson RN documented in this encounterFirelands Regional Medical Center [facility]03-17-2023 Miscellaneous Notes* Telephone Encounter - Kaylee Greenberg LPN - 01/28/2023 12:44 PM EDT Notified sister Darrion and verbalizes understanding. * Telephone Encounter - Lyndon Estes MD - 01/28/2023 12:14 PM EDT Sodium has dropped again. I think we discussed before that they pushed plain water. Change to something like gatorade etc. Recheck bmp in one week documented in this encounterFirelands Regional Medical Center [facility] Campus03-16-2023 NoteHNO ID: [id number] Author: Lyndon Estes MD Service: ? Author [...] (HCC) Inguinal hernia left - imaging at [place] Sleep apnea Spina bifida (HCC) Urinary retention PAST SURGICAL HISTORY Procedure Laterality Date CRTJ SHUNT TNZEAFOWDE-VBEVYJMVM-LLANEGN TERMINUS EGD W/O BRSH SPEC VARICIES INJ [...] ICD9: 781.2, ICD10: R26.9 - stable. Lyndon Estse, [facility]02-06-2023 Miscellaneous Notes* Telephone Encounter - Stephanie Wahl LPN - 12/20/2022 10:28 AM EST NEIL Hankinsmanager stars for [facility] calling to let you know pt was d/c from [facility] on 12-15-22. Pt had a large bowel blockage. (FYI pt was sent there because there was no beds at [facility] per Nhi). Stephanie Wahl LPN documented in this encounterFirelands Regional Medical Center [facility]02-03-2023 Miscellaneous Notes* Telephone Encounter - Melodie Kim RN - 12/17/2022 1:05 PM EST Sallie at [facility] notified by detailed VM on her identified line. Melodie Kim RN * Telephone Encounter - Juan Dnaiel Finn RN - 12/17/2022 9:38 AM EST Sallie- [facility] asking for approval for POC to see patient 2 x month for 2 months for bowman catheter change and recertification. Please phone Sallie with verbal. documented in this encounterFirelands Regional Medical [facility]02-02-2023 Miscellaneous Notes* Telephone Encounter - Kishor Briseno [...] her brother'scurrent update now. documented in this encounterFirelands Regional Medical Center [facility]02-01-2023 NoteSend Summary: Discharge Summary Providers: Provider RoleProvider [...] Care - Resumed Vital Signs: T PRBPMAPSpO2 [id number]/8692% Date/Time12/15 5:542/ 5:542/ 5:542/ 5:542/ 5:54 Range(35.9C - 37.1C ) (72 - 102 ) (16 - 18 ) (117 - 148 )/ (77 - 88 ) (92% - 96% ) Highest temp of 37.1 C was recorded at 12/14 9:24 Date: Weight/Scale Type:Height: 11-Dec-2022 16:1954.4 kg / ztp290.9 cm Physical Exam: Constitutional: Pleasant, calm and [...] a history of congenital hydrocephalus s/p remote CAPONIZER shunt (revision at 19yo), bowel dysmotility, neurogenic [...] none Home Care Certification: Skilled Disciplines Ordered: RN/LEGAL OFFICER, for monthly Bowman catheter change Home Care [...] discharge: Full Code Electronic Signatures: Long Saldaña (PARTS FINISHER-HAND IRONER) (Signed 15-Dec-2022 13:32) Authored: Send Summary, Summary Content, Ongoing Care, DNR Status, Note Completion Last Updated: 15-Dec-2022 13:32 by Long Saldaña (PARTS FINISHER-HAND IRONER)[facility]01-31-2023 Miscellaneous Notes* Telephone Encounter - Daniela Nelson RN - 12/14/2022 10:15 AM EST Nhi mendoza with [employer] calls to let provider know that patient was transferred to [facility] instead of [facility]. Not certain as to why but they are discussing discharge planning at this time. Daniela Nelson RN documented in this encounterFirelands Regional Medical Center South Campus01-28-2023 NoteClinical Note - Pharmacy v2: Education: Document TopicMedication Education MedicationMeds to Beds: Patient accepts Meds to Beds service at discharge, please send prescriptions to [facility]. Sources used to confirm home medication list: Family interview with sister Darrion Barrow (patient's corporate associate attorney), Continuity of Care Document [facility] 12/11/2022, fill history Additional comments: Patient's sister reports he takes baclofen at 6 AM, 2 PM, and 10 PM daily Medication reconciliation complete Please reach out via GoEuro for questions Wesley Mueller PharmD PGY-1 [employer] Amb[facility] [employer] Services Is This Intervention Medication Reconciliation Relatedyes Time [id number] minutes Additional NotesHome Medications Review Status for [...] Contrast Reaction: Anaphylaxis Electronic Signatures: Wesley Mueller ([facility]) (Signed 11-Dec-2022 14:53) Authored: Education, Allergy Yobani Romero ([facility]) (Signed 11-Dec-2022 18:26) Co-Signer: Stuart, Allergy Last Updated: 11-Dec-2022 18:26 by Yobani Romero ([facility]01-28-2023 NoteHistory of Present Illness: HPI: JIAN FUENTES is a 57 year old Male with Hx congenital hydrocephalus s/p remote CAPONIZER shunt (revision at 19yo), bowel dysmotility, neurogenic [...] seizures, prior small bowel obstructions PSH: remote CAPONIZER shunt Allergies: None FHX: noncontributory Meds: baclofen [...] are negative Objective: Objective Information: T PRBPMAPSpO2 Value36.03677732/9095% Date/Time12/11 9: 12: 12: 12: 12:16 Range(36.8C [...] Male with Hx congenital hydrocephalus s/p remote CAPONIZER shunt (revision at 19yo), bowel dysmotility, neurogenic bladder, HTN, HLD, seizures who presented to OSH with abdominal pain c/f significant constipation vs rectosigmoid narrowing. Plan: -2x tap water enemas now to (more content not included)...[facility]12-19-2022 Miscellaneous Notes* Telephone Encounter - Mabel Lopez [...] - 11/01/2022 12:43 PM EST Chidii with [facility] called, stating patient sister took catheter out of Nurse hand when going to place new one in patient, the patient sister proceeded to place catheter in patient, later that evening removed catheter stating it was not working and took to ER. Sister stated ER Placed a 14French instead of 16 Polish. [facility] is frustrated with the sister, and want to know if they should continue bowman changes or can it be done in office? Please advise. Thank you. Cori# [phone] * Telephone Encounter - Mercy Noonan RN - 10/29/2022 1:32 PM EST Shruthi from [facility] calls and states that she had changed Bowman catheter today. correction is decreasing their frequency of visits to 1 time a month. Next visit is 11/23/2022 where they will re-certify patient again. Mercy Noonan RN documented in this encounterFirelands Regional Medical Center South Campus12-09-2022 Miscellaneous Notes* Telephone Encounter - Kaylee Greenberg LPN - 10/22/2022 10:33 AM EST Left detailed message as advised. * Telephone Encounter - Lyndon Estes MD - 10/22/2022 8:29 AM EST Ok to do * Telephone Encounter - Stephanie Wahl LPN - 10/22/2022 8:15 AM EST Sallie with [facility], nursing called to get a verbal order to move apt from today to reevaluate. Apt was to be today but pt has declined apt today and asking to have next week. Please call Sallie with verbal order. Okay to leave a message. [phone]. Stephanie Wahl LPN documented in this encounterFirelands Regional Medical Center South Campus11-29-2022 NoteHNO ID: [id number] Author: Marcelo Prince MD Service: ? Author Type: Physician Type: Progress Notes Filed: 10/12/2022 4:09 PM Note Text: [facility] UROLOGY HISTORY AND PHYSICAL ESTABLISHED PATIENT [...] (HCC) Inguinal hernia left - imaging at [place] Sleep apnea Spina bifida (HCC) Urinary retention PAST SURGICAL HISTORY Procedure Laterality Date CRTJ SHUNT [id number] TERMINUS EGD W/O BRSH SPEC VARICIES INJ [...] Bilateral inguinal hernias appreciated, 16 Fr urethral obwman inserted draining CYU EXT: [x] No edema [...] SP tube placement fo (more content not included)...[facility]11-29-2022 NotePatient Outreach (UROLMN) JIAN FUENTES ([id number]) 1965 M Date Time Provider Department 10/12/22 MARCELO PRINCE URODARREL During your visit today, we recorded [...] for genitourinary condition [Z13.89] Order(s):URINALYSIS, REFLEX MICROSCOPIC [[id number]] Order #: [id number] Prescriptions as of 10/15/2022 - MOTEGRITY 2 [...] PALSY - INFANTILE) HEMIPLEGIA, CON*02/02/2008 05/22/2013 Myelodysplasia [FKJ9224] 05/22/2013 Deformity of ankle and foot, acquired [...] 07/16/2022 Encounter Status:Closed by JOE, PRODUSER on 10/15/22[facility] 10-12-2022 History of Present illness Narrative* Marcelo Prince MD - 10/12/2022 12:36 PM EST [facility] UROLOGY HISTORY AND PHYSICAL ESTABLISHED PATIENT VISIT PATIENT: iJan Fuentes : 1965 DATE OF SERVICE: October [...] other surgery planned. Patient was admitted to [facility] for SBO on 04/14/2022 and was [...] (HCC) Inguinal hernia left - imaging at [place] Sleep apnea Spina bifida (HCC) Urinary retention PAST SURGICAL HISTORY Procedure Laterality Date CRTJ SHUNT [id number] TERMINUS EGD W/O BRSH SPEC VARICIES INJ [...] worsens Marcelo Prince MD documented in this encounterFirelands Regional Medical Center South Campus11-23-2022 Miscellaneous Notes* Telephone Encounter - Kaylee Greenberg LPN - 10/06/2022 12:11 PM EST Completed and faxed. * Telephone Encounter - Sarahy Monet - 10/04/2022 12:05 PM EST Physician order placed on [place]'s desk for signature. Needs faxed back to [phone] Sarahy Monet documented in this encounterFirelands Regional Medical Center South Campus11-21-2022 Instructions* Patient Instructions* Liz Villarreal PA-C - [...] anytime. My PA Liz, nurse Aileen and marketing secretary Kishor are also very familiar with you and they can help as well, but I am here for you anytime.Follow up appt at: [phone]. Scheduling number is: [phone] Best regards, Nayely Nazario M.D Extract Mixer, GI motility & pelvic floor clinic Department of Gastroenterology, Nutrition & Hepatology [facility] [place] ([facility]) [facility] documented in this encounterFirelands Regional Medical Center South Campus11-21-2022 NoteHNO ID: [id number] Author: Nayely Nazario MD Service: ? Author [...] PRESENT ILLNESS Patient presents with sister (a LEGAL OFFICER). Jian Fuentes is a 56 year old [...] testing in the past 09/28/2022 XRAY ABDOMEN ([facility]) IMPRESSION: Persistent large bowel ileus. No evidence of SBO. EGD 08/06/2021([facility]) IMPRESSION: Normal esophagus Duodenal polyp, resected [...] (HCC) Inguinal hernia left - imaging at [place] Sleep apnea Spina bifida (HCC) Urinary retention PAST SURGICAL HISTORY Procedure Laterality Date CRTJ SHUNT [id number] TERMINUS EGD W/O BRSH SPEC VARICIES INJ [...] acute distress RECENT LABS (more content not included)...[facility]11-21-2022 History of Present illness Narrative* Nayely Nazario [...] PRESENT ILLNESS Patient presents with sister (iam LEGAL OFFICER). Jian Fuentes is a 56 year old [...] - zero, stress d/t hospitalizations Worked at [employer] until COVID19 & bowel problems becoming time consuming Reviewed extensive testing in the past 09/28/2022 XRAY ABDOMEN ([facility]) IMPRESSION: Persistent large bowel ileus. No evidence of SBO. EGD 08/06/2021([facility]) IMPRESSION: Normal esophagus Duodenal polyp, resected [...] (HCC) Inguinal hernia left - imaging at [place] Sleep apnea Spina bifida (HCC) Urinary retention PAST SURGICAL HISTORY Procedure Laterality Date CRTJ SHUNT [id number] TERMINUS EGD W/O BRSH SPEC VARICIES INJ [...] of the abdomen <1 mo ago at [facility]. Recent xray with persistent large bowel [...] follow up as needed Nayely Nazario M.D Extract Mixer, GI motility & pelvic floor clinic Department of Gastroenterology, nutrition & hepatology [facility] [place] ([facility]) [facility] I spent a total of 60 minutes on the date of the service which included preparing to see the patient, [id number] patient care, completing clinical documentation, obtaining and/or reviewing separately obtained history, performing a medically appropriate examination, counseling and educating the pat ient/family/caregiver, ordering medications, tests, or procedures, communicating with other HCPs (not separately reported), independently interpreting results (not separately reported), communicatingresults to the patient/family/caregiver, and care coordination (not separately reported). documented in this encounterFirelands Regional Medical Center South Campus11-16-2022 Miscellaneous Notes* Telephone Encounter - Dalia Floyd RN - 09/29/2022 2:15 PM EST NANETTE Jimenez @ [facility] calling to let PCP know PT evaluated patient today and patient does not need physical therapy services at this time. He is at his baseline prior to hospitalization. Dalia Floyd RN documented in this encounterFirelands Regional Medical Center South Campus11-02-2022 Miscellaneous Notes* Telephone Encounter - Kaylee Greenberg [...] Nurse Rich Guajardo LPN documented in this encounterFirelands Regional Medical Center South Campus10-28-2022 Miscellaneous Notes* Telephone Encounter - Millie Kaur APRN.HAND IRONER - 09/10/2022 9:16 AM EDT Called and spoke to patient's sister. Reports she took patient to ED last night and [facility]. Recommended follow up with Dr. Nazario at [facility] for slow transit constipation and [...] no BM's for awhile. documented in this encounterFirelands Regional Medical Center South Campus10-24-2022 Miscellaneous Notes* Telephone Encounter - Kassy Kyle Ma - 09/06/2022 11:38 AM EDT VO given to kate at [facility] * Telephone Encounter - Yvette Mir APRN.CNP - 09/06/2022 10:16 AM EDT Agree. Yvette Mir APRN.CNP * Telephone Encounter - Mercy Noonan RN - 09/06/2022 10:03 AM EDT Kate from [facility] HH calls to report that physical therapy did not visit the patient on 09/03/2022 due to they needed insurance authorization. Kate asking for orders to omit that visit. Kate also asking for orders for physical therapy to do a 1 time visit for re-evaluation of physical therapy. Please review and advise, Mercy Noonan RN documented in this encounterFirelands Regional Medical Center South Campus10-12-2022 Miscellaneous Notes* Telephone Encounter - Sarahy Monet - 08/25/2022 1:28 PM EDT Spoke with Darrion, patients sister and informed of results. She verbalized understanding. Sarahy Monet * Telephone Encounter - Lyndon Estes MD - 08/25/2022 12:49 PM EDT Platelets are up,likely due to recent infection. Sodium is better but still low. Recheck labs in one week documented in this encounterFirelands Regional Medical Center South Campus10-11-2022 History of Present illness Narrative* Lyndon Estes [...] is doing well. SeeTCM noted. Discharged from [facility] on 08/14: Copied from [facility] Alphion: This 56 year-old white male seen in the emergency room at [facility] with complaints of fever and [...] (HCC) Inguinal hernia left - imaging at [place] Sleep apnea Spina bifida (HCC) Urinary retention PAST SURGICAL HISTORY Procedure Laterality Date CRTJ SHUNT [id number] TERMINUS EGD W/O BRSH SPEC VARICIES INJ [...] up appt and prn documented in this encounterFirelands Regional Medical Center South Campus10-06-2022 Miscellaneous Notes* Telephone Encounter - Kaylee Greenberg LPN - 08/19/2022 3:10 PM EDT Faxed as requested. * Telephone Encounter - Lyndon Estes MD - 08/19/2022 2:30 PM EDT Printed. * Telephone Encounter - Ave Mullins LPN - 08/19/2022 1:28 PM EDT Janie from [facility] Home Health OT returned call and said family wants order for standard manual wheel chair with elevating leg rests faxed to [facility] fax number is [phone]. Patient height is 63 inches and weight [...] 08/17/2022 1:47 PM EDT Janie OT from [facility] calls to report that she did only a one time visit. Janie states that patient is pretty much wheel chair bound. Patient wheel chair is old and torn withno cushion. Janie asking if provider can write a prescription for a new wheel chair and cushion. Please review and advise, Mercy Noonan RN documented in this encounterFirelands Regional Medical Center South Campus10-05-2022 Miscellaneous Notes* Telephone Encounter - Juan Daniel Finn RN - 08/18/2022 4:09 PM EDT Stan PT- [facility], reporting POC: will see patient 2 x's week for 2 weeks, for lower extremity strengthening, ROM, transfers, and gait training. documented in this encounterFirelands Regional Medical Center South Campus10-04-2022 History of Present illness Narrative* Rich Guajardo LPN - 08/17/2022 10:14 AM EDT TRANSITION CARE MANAGEMENT (TCM) INITIAL CONTACT Land Conservation Specialist Outreach Provider Action/FYI: Copied from [facility]: This 56 year-old white male seen in the emergency room at [facility] with complaints of fever and [...] might be hidden SUMMARY: -Pt discharged from [facility] on 08/14/22. -Admitted for: UTI, hyponatremia Do [...] Requested from outside hospital documented in this encounterFirelands Regional Medical Center South Campus09-29-2022 Miscellaneous Notes* Telephone Encounter - Kassy Kyle [...] View External Lab - Miscellaneous Lab [ID [id number]] Morenita Neil Ma documented in this encounterFirelands Regional Medical Center South Campus09-28-2022 Miscellaneous Notes* Telephone Encounter - Daniela Nelson RN - 08/11/2022 9:13 AM EDT Serina SW with [facility] HH calls to let provider know that she planned to see patient in the home today to help complete advance directives--POA. Serina reports that patient is currently hospitalized at [facility] PCU and SW will assist patient with this while he is there. Serina reports she shouldn't need anyfurther SW visits in the home but will call back if that changes. Daniela Nelson RN documented in this encounterFirelands Regional Medical Center South Campus09-27-2022 Miscellaneous Notes* Telephone Encounter - Kassy Kyle Ma - 08/10/2022 1:16 PM EDT VO given to Moriah from [facility] * Telephone Encounter - Juan Daniel Wolff PA-C - 08/10/2022 12:51 PM EDT Telephone on 08/10/22 URINALYSIS, REFLEX MICROSCOPIC URINE CULTURE Abnormal urine color (primary encounter diagnosis) Urinary catheter in place ThanksBrayan PA-C * Telephone Encounter - Ave Mullins LPN - 08/10/2022 10:22 AM EDT Moriah from [facility] Home Health calling patient caregiver has called her and said his urine color is much darker, he has bowman catheter chronically. She plans to go to home later this morning. She is askingfor orders for urine sample. Pending orders needs diagnosis. Please advise documented in this encounterFirelands Regional Medical Center South Campus09-23-2022 Miscellaneous Notes* Telephone Encounter - Jane Wiggins RN - 08/06/2022 3:42 PM EDT Nhi nurse from [facility] called in and reports she was getting notifications that the Pt had been in the hospital from 07/20-07/23. I told her I didn't see in our system that the Pt had been. She saidshe couldn't pull any visits up either. documented in this encounterFirelands Regional Medical Center South Campus09-22-2022 Miscellaneous Notes* Telephone Encounter - Morenita Neil Ma - 08/05/2022 11:29 AM EDT Returned call to [place], notified her of response from PCP, verbalized understanding. Morenita Neil Ma * Telephone Encounter - Lyndon Estes MD - 08/05/2022 10:24 AM EDT Ok to do * Telephone Encounter - Mercy Noonan RN - 08/05/2022 10:00 AM EDT Serina BAUTISTA from [facility] calls and asking for a verbal order for continued Social Work for 1 time for 2 weeks. Please give Serina a call back at with verbal order if agreeable. Mercy Noonan RN documented in this encounterFirelands Regional Medical Center South Campus09-20-2022 Miscellaneous Notes* Telephone Encounter - Melodie Kim RN - 08/03/2022 11:58 AM EDT Shantelle, Nurse, notified of order. Melodie Kim RN * Telephone Encounter - Yvette Mir APRN.CNP - 08/03/2022 11:48 AM EDT Okay to change catheter. Yvette Mir APRN.KAREN * Telephone Encounter - Melodie Kim RN - 08/03/2022 10:19 AM EDT Shantelle, a nurse with [facility] calling to state patient's daughter reports patient's catheter is leaking. Shantelle is planning to visit patient at this afternoon. She is asking for an order to change the catheter today, if provider agreeable- It was to be changed on 08/11. Please call Shantelle with order at [phone]. Thank you. documented in this encounterFirelands Regional Medical Center South Campus09-19-2022 Miscellaneous Notes* Telephone Encounter - Lyndon Estes MD - 08/02/2022 3:15 PM EDT noted * Telephone Encounter - Juan Daniel Finn RN - 08/02/2022 2:43 PM EDT Janie- [facility] OT reporting POC- there was a delay of care waiting for insurance authorization. Plan to see patient 2 x's week for 2 weeks, then 1 x week for 1 week, for home exercise to improve transfers, and education for caregivers. Does not need a call back as long as pcp agrees. documented in this encounterFirelands Regional Medical Center South Campus09-19-2022 Miscellaneous Notes* Telephone Encounter - Kaylee Greenberg LPN - 08/02/2022 11:27 AM EDT As requested this was printed in letters and sent to patient via mail. This was requested by [facility] office the day of visit. * Telephone Encounter - Lyndon Estes MD - 08/02/2022 8:41 AM EDT His labs are stable. Platelets are mildly up. Potassium is mildly up. Sodium is low but stable. Recheck labs in two weeks documented in this encounterFirelands Regional Medical Center South Campus09-16-2022 History of Present illness Narrative* Lyndon Estes MD - 07/30/2022 3:39 PM EDT Patient presents with: Hospital F/U HPI: Patient presents today for office visit for hospital follow up. Bowel obstruction and UTI. Was in [facility] Admitted 07/21-07/25 DX:admitted with SBO, cystitis. Is [...] (HCC) Inguinal hernia left - imaging at [place] Sleep apnea Spina bifida (HCC) Urinary retention PAST SURGICAL HISTORY Procedure Laterality Date CRTJ SHUNT [id number] TERMINUS EGD W/O BRSH SPEC VARICIES INJ [...] six months and prn. documented in this encounterFirelands Regional Medical Center South Campus09-16-2022 Miscellaneous Notes* Telephone Encounter - Lyndon Estes MD - 07/30/2022 3:22 PM EDT ok * Telephone Encounter - Ave Mullins LPN - 07/30/2022 3:15 PM EDT Barbara from [facility] Home Health calling with PT plan of care, 2 visits weekly for 3 weeks working on lower extremities range of motion, tone management, transfer and gait training, core strength. documented in this encounterFirelands Regional Medical Center South Campus09-13-2022 Miscellaneous Notes* Telephone Encounter - Mercy Noonan RN - 07/27/2022 4:36 PM EDT Christiano from [facility] calls and states that she did receive orders from provider via detailed message. Patient needs nystatin powder prescription to be sent to [facility]. Please review and advise, Mercy Noonan RN documented in this encounterFirelands Regional Medical Center South Campus09-13-2022 Miscellaneous Notes* Telephone Encounter - Diane Franco Ma - 07/27/2022 3:27 PM EDT Detailed message left on Cori's identified confidential VM. Dianebrenda Franco Ma * Telephone Encounter - Lyndon Estes MD - 07/27/2022 3:17 PM EDT Ok for all * Telephone Encounter - Jane Wiggins RN - 07/27/2022 2:45 PM EDT Janay SN with [facility] HH called in and reports they will [...] that. Pleasecall and advise. documented in this encounterFirelands Regional Medical Center South Campus09-12-2022 Miscellaneous Notes* Telephone Encounter - Rich Guajardo LPN - 07/26/2022 5:44 PM EDT TC to Marisabel left detailed message on secure identified voicemail. Marisabel only to return call to office /c any questions. Rich Guajardo LPN * Telephone Encounter - Lyndon Estes MD - 07/26/2022 5:09 PM EDT ok * Telephone Encounter - Dalia lFoyd RN - 07/26/2022 4:45 PM EDT Marisabel, nurse @ [facility] calling to let PCP know patient was discharged from [facility] on 07/25 post hospitalization for ileus, SBO, gastroparesis, UTI. He has home health orders for nursing, PT/OT. Agree and willing to follow? Please call with verbal okay. # [phone]. Dalia Floyd RN documented in this encounterFirelands Regional Medical Center South Campus09-02-2022 Instructions* Patient Instructions* Julita Sofia DO - [...] for treating the spasticity. documented in this encounterFirelands Regional Medical Center South Campus09-02-2022 History of Present illness Narrative* Julita Sofia DO - 07/16/2022 11:00 AM EDT Images from the original note were not included. [facility] Follow up/ Established patient visit Individuals who were included in, or assisted with the encounter were: Jian Sofia DO Chief Complaint/Issues: Jian Reuben Fuentes is a 56 year old male seen in the [facility] for: Spasticity or b/l UE and LE, neurogenic bladder, bowel dysfunction. Multiple surgeries through the years to his legs, wheelchair bound with catheter Diagnosis/Issues: Relevant Medical Issues: 1. Hydrocephalus s/p CAPONIZER shunt 2. Spina bifida 3. Spastic paraparesis with neurogenic bladder, SBO in 04/2022 and right head tilt Current Treatment and Relevant Treatment History: 1. baclofen 07/08/2022 2. referred to spasticity clinic for botox evaluation Follows with urology and GI Imaging/Studies/Labs: No [facility] imaging Most Recent Neurological Assessment and [...] history of spina bifida with hydrocephalus s/p CAPONIZER shunt placed at who presents for followup [...] (HCC) Inguinal hernia left - imaging at [place] Sleep apnea Spina bifida (HCC) Urinary retention PAST SURGICAL HISTORY Procedure Laterality Date CRTJ SHUNT [id number] TERMINUS PAST SURGICAL HISTORY OF repair of [...] ED PATIENT INFORMATION Result Value Ref Range Toolroom Machinist Provider DALILA your patient JIAN FUENTES has been assigned their Irene program. The date to complete this order is 07-19-2022 The Irene program is: PATIENT SAFETY AND FALL PREVENTION The patient access code to view the Irene program is: [email or web address] To view the Irene program go to: [email or web address] Patient-Entered Data: 07/11/22 - GENERAL NEUROLOGY SCORES No flowsheet data found. Depression Screening 09/06/2016 08/22/2018 PHQ-2 Score 2 0 No flowsheet data found. No flowsheet data found. No flowsheet data found. I spent a total of 35 minutes on the date of the service which included preparing to see the patient, [id number] patient care, completing clinical documentation, obtaining and/or reviewing separately obtained history, performing a medically appropriate examination, counseling and educating the pat ient/family/caregiver, ordering medications, tests, or procedures, independently interpreting results (not separately reported), and care coordination (not separately reported). Julita Sofia DO documented in this encounterFirelands Regional Medical [facility] Campus07-29-2022 Instructions* Patient Instructions* Millie Kaur APRN.CNP - 06/11/2022 4:18 PM EDT PLAN - Trial increase Linzess 145mcg daily. - 2 kiwi fruit/day - Follow up 6 months. documented in this encounterFirelands Regional Medical Center South Campus07-29-2022 History of Present illness Narrative* Millie Kaur [...] - Follow up 6 months. Millie Kaur APRN.HAND IRONER June 11, 2022 4:08 PM documented in this encounterFirelands Regional Medical Center [facility] Campus07-19-2022 History of Present illness Narrative* Mabel Lopez [...] planned. Mabel Lopez LPN documented in this encounterFirelands Regional Medical Center South Campus06-17-2022 History of Present illness Narrative* Blaire Panedy RN - 04/30/2022 2:37 PM EDT Patient [...] care. Blaire Pandey RN documented in this encounterFirelands Regional Medical [facility] Campus06-14-2022 Miscellaneous Notes* Telephone Encounter - Kassy Kyle Ma - 04/27/2022 12:13 PM EDT Order faxed * Telephone Encounter - Kassy Kyle Ma - 04/27/2022 11:[address] referral then will fax to [phone] Spoke with Enedina, then her sawmill supervisor Hiral, they will try to get one out to him. * Telephone Encounter - Lyndon Estes MD - 04/27/2022 11:39 AM EDT Are we able to have the agencies social work associate see him? * Telephone Encounter - Ave Mullins LPN - 04/27/2022 10:02 AM EDT Enedina from [facility] calling she opened patient case on [...] cars and old mobile homes, campersnear the psychiatric. She said sister helps him bathe at [...] seen conditions like this. documented in this encounterFirelands Regional Medical Center South Campus06-10-2022 Miscellaneous Notes* Telephone Encounter - Makenna Gonzalez RN - 04/23/2022 2:57 PM EDT PATIENT INFORMATION Record ID: [id number] [facility] [place]: [facility] [place] Attending: [facility]: General Surgery INSTRUCTIONS Continue with script and ensure patient has number or is given number to appointment center [phone] All Clear All Clear SURVEY INFORMATION Medical/Nurse Lacemaker: Makenna Gonzalez 1. Your discharge instructions are [...] symptoms? (Standard Question) No documented in this encounterFirelands Regional Medical Center South Campus06-10-2022 Miscellaneous Notes* Telephone Encounter - Rich Guajardo LPN - 04/23/2022 11:15 AM EDT TC hazel Wolf, detailed message left on secure identified voicemail. Rich Guajardo LPN * Telephone Encounter - Lyndon Estes MD - 04/23/2022 11:05 AM EDT Ok to start * Telephone Encounter - Jane Wiggins RN - 04/23/2022 9:30 AM EDT Maryann from [facility] will be faxing an order to provider at [phone]. This is for verbal for start of care for PT evaluation and treatment date 04/20/22. She states they will have a fax number on the paper for provider to send back to, she said to just put Attn: Penelope. documented in this encounterFirelands Regional Medical Center South Campus06-07-2022 Miscellaneous Notes* Telephone Encounter - Katiana Loera LPN - 04/20/2022 3:07 PM EDT CONFIRMATION CALL a. Date and Time: 3:08 PM 04/20/2022 b. Contact name/relationship: Spoke with patients sister DARRION and she said [facility] will be providinghomecare at this time. I told her if any problems please call. Katiana Loera LPN documented in this encounterFirelands Regional Medical Center [facility] Campus05-20-2022 Miscellaneous Notes* Telephone Encounter - Mabel Quiñones [...] office. Joana Quiñones RN documented in this encounterFirelands Regional Medical Center South Campus05-18-2022 Miscellaneous Notes* Telephone Encounter - Juvenal Henry MD - 03/31/2022 6:24 PM EDT Updated Nurse on-Call: Paged by RN re: Mr. Jian Fuentes, a 56 yo man w/PMH s/f spina bifida with hydrocephalus s/p CAPONIZER shunt placed at , spastic paraparesis, and [...] as well. Juvenal Henry MD PGY-2, Neurology [phone] 6:32 PM, March 31, 2022 documented in this encounterFirelands Regional Medical Center South Campus05-18-2022 Miscellaneous Notes* Telephone Encounter - Chriss Bradford [...] were reviewed, (see list,) no new allergies [facility] pharmacy in [place], Paged the doctor concrete buster operator for Dr Sofia, and Dr Juvenal Henry [...] 8a.m. tomorrow morning. (Dr Sofia's office phone [phone]) documented in this encounterFirelands Regional Medical Center [facility] Campus05-17-2022 Miscellaneous Notes* Telephone Encounter - Mabel Quiñones RN - 03/30/2022 1:37 PM EDT Refused refill request again as no longer under providers care. Joana Quiñones RN documented in this encounterFirelands Regional Medical Center [facility] Campus05-12-2022 Miscellaneous Notes* Telephone Encounter - Mabel Quiñones [...] three times daily. CARINE: No Pharmacy Name: [facility] Pharmacy Phone #: [phone] Paco Hawkins documented in this encounterFirelands Regional Medical Center South Campus05-05-2022 Miscellaneous Notes* Telephone Encounter - Laura Perez Sec - 03/18/2022 9:47 AM EDT Forwarding script request to covering provider for approval; in lieu of Millie's absence. documented in this encounterFirelands Regional Medical Center South Campus04-22-2022 History of Present illness Narrative* RT Eitan(Lamont) [...] 05, 2022 4:34 PM documented in this encounterFirelands Regional Medical Center South Campus04-06-2022 Miscellaneous Notes* Telephone Encounter - Laura Jacobo RN - 02/17/2022 11:46 AM EDT Will have patient contact schedulers to schedule appointments. * Telephone Encounter - Keisha Allen Pss - 02/17/2022 11:15 AM EDT Patient is at [facility] currently wants to know if they can schedule CT while they are here want a call back form Laura. documented in this encounterFirelands Regional Medical Center South Campus04-06-2022 History of Present illness Narrative* Marcelo Prince MD - 02/17/2022 10:00 AM EDT [facility] [place] 56 yo male Here for evaluation of kidney stone, bladder pmh of hydrocephalus- lifelong Permanent indwelling catheter for urinary retention mention Sister with patient at corporate associate attorney Previously seen in urology by Dr. Soto [...] Marcelo Prince MD documented in this encounterCleveland [phone] Miscellaneous Notes* Telephone Encounter - Laura Jacobo RN - 02/16/2022 9:20 AM EDT Message sent to schedulers. * Telephone Encounter - Keisha Allen Pss - 02/16/2022 8:55 AM EDT Sister wants a call back to schedule CT with the Clinic for the patient documented in this encounterFirelands Regional Medical Center South Campus04-05-2022 Miscellaneous Notes* Telephone Encounter - Laura Perez Sec - 02/16/2022 8:49 AM EDT Patient's sister called stating that he's completely out of his Linzess medication. Can refills be added this time please? Forwarding script request to covering provider for approval; in lieu of Millie's absence. documented in this encounterFirelands Regional Medical Center [facility] Campus04-05-2022 Miscellaneous Notes* Telephone Encounter - Laura Jacobo [...] wants a call back. documented in this encounterFirelands Regional Medical Center South Campus04-01-2022 History of Present illness Narrative* Mabel Lopez LPN - 02/12/2022 10:49 AM EDT CC Bowman catheter in Place HPI: Jian Fuentes is a 56 year old male. The patient is here now for a bowman catheter change. Darrion, patients sister/caregiver, reports that bowman catheter last changed at [facility] on 01/10/2022. Procedure: Performed a [...] planned. Mabel Lopez LPN documented in this encounterFirelands Regional Medical Center [facility] Campus03-22-2022 History of Present illness Narrative* Lamont Eller MD - 02/02/2022 2:11 PM EDT Consultation requested by Self for an opinion regarding Jian Fuentes, who presents today for recurrent SBO.. My final recommendations will be communicated back to the requesting physician byway of shared Medical record or letter to requesting physician via US mail. [facility] STAFF PHYSICIAN NOTE OF PERSONAL INVOLVEMENT [...] back to normal. PMHx per resident including CAPONIZER shunt. PLAN: options of surgery now vs waiting for recurrent sx discussed. will repeat imaging now and decide. CT with PO contrast only. Medical Decision Making Daniel Eller MD Date of Service: February 02, 2022 Time of Service: 2:22 PM documented in this encounterFirelands Regional Medical Center [facility] Campus03-22-2022 History and physical note * Nicho Jimenes MD - 02/02/2022 2:08 PM EDT SURGICAL SERVICES HISTORY AND PHYSICAL EXAMINATION SERVICE DATE: 02/02/2022 SERVICE TIME: 2:08 PM PRIMARY CARE PHYSICIAN: Lyndon Estes MD SUBJECTIVE CHIEF COMPLAINT: Small bowel obstruction HISTORY OF PRESENT ILLNESS: Mr. Fuentes is a 56 year old male with a PMHx of spina bifida, hydrocephalus s/p CAPONIZER shunt and dysmotility requiring regular suppositories and [...] (HCC) Inguinal hernia left - imaging at [place] Sleep apnea Spina bifida (HCC) Urinary retention PAST SURGICAL HISTORY: PAST SURGICAL HISTORY Procedure Laterality Date CRTJ SHUNT [id number] TERMINUS PAST SURGICAL HISTORY OF repair of [...] hypertension, CHF or palpitations GI: See HPI TAXI DRIVER: Negative for abnormal vaginal bleeding, abnormal vaginal [...] Jimenes MD PGY-2 General Surgery Resident Pager: [phone] 02/02/2022 documented in this encounterFirelands Regional Medical Center [facility] Campus03-14-2022 Miscellaneous Notes* Telephone Encounter - Marcela Rowland LPN - 01/25/2022 2:45 PM EDT Called patient to gather medical record info. Patient voicemail not set up Spoke with patient sister, records [facility]. Records requested 01/26/22 documented in this encounterFirelands Regional Medical Center [facility] Campus03-21-2008 History of Past illness Narrative* Problem Noted Date Resolved Date CP (CEREBRAL PALSY - INFANTILE) HEMIPLEGIA, TESFAYE ENITAL 02/02/2008 05/22/2013 documented as of this encounter (statuses as of 02/03/2022) [facility]03-21-2008 History of Past illness Narrative* Problem Noted Date Resolved Date CP (CEREBRAL PALSY - INFANTILE) HEMIPLEGIA, TESFAYE ENITAL 02/02/2008 05/22/2013 documented as of this encounter (statuses as of 02/04/2022) [facility]03-21-2008 History of Past illness Narrative* Problem Noted Date Resolved Date CP (CEREBRAL PALSY - INFANTILE) HEMIPLEGIA, TESFAYE ENITAL 02/02/2008 05/22/2013 documented as of this encounter (statuses as of 02/12/2022) [facility]03-21-2008 History of Past illness Narrative* Problem Noted Date Resolved Date CP (CEREBRAL PALSY - INFANTILE) HEMIPLEGIA, TESFAYE ENITAL 02/02/2008 05/22/2013 documented as of this encounter (statuses as of 02/16/2022) [facility]03[facility] History of Past illness Narrative* Problem Noted Date Resolved Date CP (CEREBRAL PALSY - INFANTILE) HEMIPLEGIA, TESFAYE ENITAL 02/02/2008 05/22/2013 documented as of this encounter (statuses as of 02/17/2022) [facility] History of Past illness Narrative* Problem Noted Date Resolved Date CP (CEREBRAL PALSY - INFANTILE) HEMIPLEGIA, TESFAYE ENITAL 02/02/2008 05/22/2013 documented as of this encounter (statuses as of 02/17/2022) [facility] History of Past illness Narrative* Problem Noted Date Resolved Date CP (CEREBRAL PALSY - INFANTILE) HEMIPLEGIA, TESFAYE ENITAL 02/02/2008 05/22/2013 documented as of this encounter (statuses as of 02/18/2022) [address]21-2008 History of Past illness Narrative* Problem Noted Date Resolved Date CP (CEREBRAL PALSY - INFANTILE) HEMIPLEGIA, TESFAYE ENITAL 02/02/2008 05/22/2013 documented as of this encounter (statuses as of 02/22/2022) [address]21-2008 History of Past illness Narrative* Problem Noted Date Resolved Date CP (CEREBRAL PALSY - INFANTILE) HEMIPLEGIA, TESFAYE ENITAL 02/02/2008 05/22/2013 documented as of this encounter (statuses as of 03/04/2022) [address]21-2008 History of Past illness Narrative* Problem Noted Date Resolved Date CP (CEREBRAL PALSY - INFANTILE) HEMIPLEGIA, TESFAYE ENITAL 02/02/2008 05/22/2013 documented as of this encounter (statuses as of 03/06/2022) [address]21-2008 History of Past illness Narrative* Problem Noted Date Resolved Date CP (CEREBRAL PALSY - INFANTILE) HEMIPLEGIA, TESFAYE ENITAL 02/02/2008 05/22/2013 documented as of this encounter (statuses as of 03/06/2022) [address]21-2008 History of Past illness Narrative* Problem Noted Date Resolved Date CP (CEREBRAL PALSY - INFANTILE) HEMIPLEGIA, TESFAYE ENITAL 02/02/2008 05/22/2013 documented as of this encounter (statuses as of 03/18/2022) [address]21-2008 History of Past illness Narrative* Problem Noted Date Resolved Date CP (CEREBRAL PALSY - INFANTILE) HEMIPLEGIA, TESFAYE ENITAL 02/02/2008 05/22/2013 documented as of this encounter (statuses as of 03/25/2022) [address]21-2008 History of Past illness Narrative* Problem Noted Date Resolved Date CP (CEREBRAL PALSY - INFANTILE) HEMIPLEGIA, TESFAYE ENITAL 02/02/2008 05/22/2013 documented as of this encounter (statuses as of 03/30/2022) [address]21-2008 History of Past illness Narrative* Problem Noted Date Resolved Date CP (CEREBRAL PALSY - INFANTILE) HEMIPLEGIA, TESFAYE ENITAL 02/02/2008 05/22/2013 documented as of this encounter (statuses as of 03/31/2022) [address]21-2008 History of Past illness Narrative* Problem Noted Date Resolved Date CP (CEREBRAL PALSY - INFANTILE) HEMIPLEGIA, TESFAYE ENITAL 02/02/2008 05/22/2013 documented as of this encounter (statuses as of 04/07/2022) [address]21-2008 History of Past illness Narrative* Problem Noted Date Resolved Date CP (CEREBRAL PALSY - INFANTILE) HEMIPLEGIA, TESFAYE ENITAL 02/02/2008 05/22/2013 documented as of this encounter (statuses as of 04/20/2022) [address]21-2008 History of Past illness Narrative* Problem Noted Date Resolved Date CP (CEREBRAL PALSY - INFANTILE) HEMIPLEGIA, TESFAYE ENITAL 02/02/2008 05/22/2013 documented as of this encounter (statuses as of 04/22/2022) [address]21-2008 History of Past illness Narrative* Problem Noted Date Resolved Date CP (CEREBRAL PALSY - INFANTILE) HEMIPLEGIA, TESFAYE ENITAL 02/02/2008 05/22/2013 documented as of this encounter (statuses as of 04/23/2022) [address]21-2008 History of Past illness Narrative* Problem Noted Date Resolved Date CP (CEREBRAL PALSY - INFANTILE) HEMIPLEGIA, TESFAYE ENITAL 02/02/2008 05/22/2013 documented as of this encounter (statuses as of 04/27/2022) [address]21-2008 History of Past illness Narrative* Problem Noted Date Resolved Date CP (CEREBRAL PALSY - INFANTILE) HEMIPLEGIA, TESFAYE ENITAL 02/02/2008 05/22/2013 documented as of this encounter (statuses as of 04/30/2022) [address]21-2008 History of Past illness Narrative* Problem Noted Date Resolved Date CP (CEREBRAL PALSY - INFANTILE) HEMIPLEGIA, TESFAYE ENITAL 02/02/2008 05/22/2013 documented as of this encounter (statuses as of 06/01/2022) [address]21-2008 History of Past illness Narrative* Problem Noted Date Resolved Date CP (CEREBRAL PALSY - INFANTILE) HEMIPLEGIA, TESFAYE ENITAL 02/02/2008 05/22/2013 documented as of this encounter (statuses as of 06/14/2022) [address]21-2008 History of Past illness Narrative* Problem Noted Date Resolved Date CP (CEREBRAL PALSY - INFANTILE) HEMIPLEGIA, TESFAYE ENITAL 02/02/2008 05/22/2013 documented as of this encounter (statuses as of 07/16/2022) [facility] of Past illness Narrative* Problem Noted Date Resolved Date CP (CEREBRAL PALSY - INFANTILE) HEMIPLEGIA, TESFAYE ENITAL 02/02/2008 05/22/2013 documented as of this encounter (statuses as of 07/26/2022) [facility] of Past illness Narrative* Problem Noted Date Resolved Date CP (CEREBRAL PALSY - INFANTILE) HEMIPLEGIA, TESFAYE ENITAL 02/02/2008 05/22/2013 documented as of this encounter (statuses as of 07/27/2022) [facility] of Past illness Narrative* Problem Noted Date Resolved Date CP (CEREBRAL PALSY - INFANTILE) HEMIPLEGIA, TESFAYE ENITAL 02/02/2008 05/22/2013 documented as of this encounter (statuses as of 07/30/2022) [facility] of Past illness Narrative* Problem Noted Date Resolved Date CP (CEREBRAL PALSY - INFANTILE) HEMIPLEGIA, TESFAYE ENITAL 02/02/2008 05/22/2013 documented as of this encounter (statuses as of 07/30/2022) [facility] of Past illness Narrative* Problem Noted Date Resolved Date CP (CEREBRAL PALSY - INFANTILE) HEMIPLEGIA, TESFAYE ENITAL 02/02/2008 05/22/2013 documented as of this encounter (statuses as of 08/02/2022) [facility] of Past illness Narrative* Problem Noted Date Resolved Date CP (CEREBRAL PALSY - INFANTILE) HEMIPLEGIA, TESFAYE ENITAL 02/02/2008 05/22/2013 documented as of this encounter (statuses as of 08/02/2022) [facility] of Past illness Narrative* Problem Noted Date Resolved Date CP (CEREBRAL PALSY - INFANTILE) HEMIPLEGIA, TESFAYE ENITAL 02/02/2008 05/22/2013 documented as of this encounter (statuses as of 08/03/2022) [facility] of Past illness Narrative* Problem Noted Date Resolved Date CP (CEREBRAL PALSY - INFANTILE) HEMIPLEGIA, TESFAYE ENITAL 02/02/2008 05/22/2013 documented as of this encounter (statuses as of 08/05/2022) [address]21-2008 History of Past illness Narrative* Problem Noted Date Resolved Date CP (CEREBRAL PALSY - INFANTILE) HEMIPLEGIA, TESFAYE ENITAL 02/02/2008 05/22/2013 documented as of this encounter (statuses as of 08/06/2022) [address]21-2008 History of Past illness Narrative* Problem Noted Date Resolved Date CP (CEREBRAL PALSY - INFANTILE) HEMIPLEGIA, TESFAYE ENITAL 02/02/2008 05/22/2013 documented as of this encounter (statuses as of 08/10/2022) [address]21-2008 History of Past illness Narrative* Problem Noted Date Resolved Date CP (CEREBRAL PALSY - INFANTILE) HEMIPLEGIA, TESFAYE ENITAL 02/02/2008 05/22/2013 documented as of this encounter (statuses as of 08/19/2022) [address]21-2008 History of Past illness Narrative* Problem Noted Date Resolved Date CP (CEREBRAL PALSY - INFANTILE) HEMIPLEGIA, TESFAYE ENITAL 02/02/2008 05/22/2013 documented as of this encounter (statuses as of 08/20/2022) [address]21-2008 History of Past illness Narrative* Problem Noted Date Resolved Date CP (CEREBRAL PALSY - INFANTILE) HEMIPLEGIA, TESFAYE ENITAL 02/02/2008 05/22/2013 documented as of this encounter (statuses as of 08/24/2022) [address]21-2008 History of Past illness Narrative* Problem Noted Date Resolved Date CP (CEREBRAL PALSY - INFANTILE) HEMIPLEGIA, TESFAYE ENITAL 02/02/2008 05/22/2013 documented as of this encounter (statuses as of 08/25/2022) [address]21-2008 History of Past illness Narrative* Problem Noted Date Resolved Date CP (CEREBRAL PALSY - INFANTILE) HEMIPLEGIA, TESFAYE ENITAL 02/02/2008 05/22/2013 documented as of this encounter (statuses as of 09/01/2022) [address]21-2008 History of Past illness Narrative* Problem Noted Date Resolved Date CP (CEREBRAL PALSY - INFANTILE) HEMIPLEGIA, TESFAYE ENITAL 02/02/2008 05/22/2013 documented as of this encounter (statuses as of 09/06/2022) [address]21-2008 History of Past illness Narrative* Problem Noted Date Resolved Date CP (CEREBRAL PALSY - INFANTILE) HEMIPLEGIA, TESFAYE ENITAL 02/02/2008 05/22/2013 documented as of this encounter (statuses as of 09/10/2022) [address]21-2008 History of Past illness Narrative* Problem Noted Date Resolved Date CP (CEREBRAL PALSY - INFANTILE) HEMIPLEGIA, TESFAYE ENITAL 02/02/2008 05/22/2013 documented as of this encounter (statuses as of 09/22/2022) [address]21-2008 History of Past illness Narrative* Problem Noted Date Resolved Date CP (CEREBRAL PALSY - INFANTILE) HEMIPLEGIA, TESFAYE ENITAL 02/02/2008 05/22/2013 documented as of this encounter (statuses as of 09/30/2022) [address]21-2008 History of Past illness Narrative* Problem Noted Date Resolved Date CP (CEREBRAL PALSY - INFANTILE) HEMIPLEGIA, TESFAYE ENITAL 02/02/2008 05/22/2013 documented as of this encounter (statuses as of 10/04/2022) [address]21-2008 History of Past illness Narrative* Problem Noted Date Resolved Date CP (CEREBRAL PALSY - INFANTILE) HEMIPLEGIA, TESFAYE ENITAL 02/02/2008 05/22/2013 documented as of this encounter (statuses as of 10/05/2022) [address]-2008 History of Past illness Narrative* Problem Noted Date Resolved Date CP (CEREBRAL PALSY - INFANTILE) HEMIPLEGIA, TESFAYE ENITAL 02/02/2008 05/22/2013 documented as of this encounter (statuses as of 10/06/2022) [address]-2008 History of Past illness Narrative* Problem Noted Date Resolved Date CP (CEREBRAL PALSY - INFANTILE) HEMIPLEGIA, TESFAYE ENITAL 02/02/2008 05/22/2013 documented as of this encounter (statuses as of 10/11/2022) [address]-2008 History of Past illness Narrative* Problem Noted Date Resolved Date CP (CEREBRAL PALSY - INFANTILE) HEMIPLEGIA, TESFAYE ENITAL 02/02/2008 05/22/2013 documented as of this encounter (statuses as of 10/12/2022) [address]-2008 History of Past illness Narrative* Problem Noted Date Resolved Date CP (CEREBRAL PALSY - INFANTILE) HEMIPLEGIA, TESFAYE ENITAL 02/02/2008 05/22/2013 documented as of this encounter (statuses as of 10/13/2022) [facility] Narrative* Problem Noted Date Resolved Date CP (CEREBRAL PALSY - INFANTILE) HEMIPLEGIA, TESFAYE ENITAL 02/02/2008 05/22/2013 documented as of this encounter (statuses as of 10/15/2022) [facility] Narrative* Problem Noted Date Resolved Date CP (CEREBRAL PALSY - INFANTILE) HEMIPLEGIA, TESFAYE ENITAL 02/02/2008 05/22/2013 documented as of this encounter (statuses as of 10/22/2022) [facility] Narrative* Problem Noted Date Resolved Date CP (CEREBRAL PALSY - INFANTILE) HEMIPLEGIA, TESFAYE ENITAL 02/02/2008 05/22/2013 documented as of this encounter (statuses as of 11/03/2022) [facility] Past illness Narrative* Problem Noted Date Resolved Date CP (CEREBRAL PALSY - INFANTILE) HEMIPLEGIA, TESFAYE ENITAL 02/02/2008 05/22/2013 documented as of this encounter (statuses as of 12/16/2022) [facility] of Past illness Narrative* Problem Noted Date Resolved Date CP (CEREBRAL PALSY - INFANTILE) HEMIPLEGIA, TESFAYE ENITAL 02/02/2008 05/22/2013 documented as of this encounter (statuses as of 12/16/2022) [facility] of Past illness Narrative* Problem Noted Date Resolved Date CP (CEREBRAL PALSY - INFANTILE) HEMIPLEGIA, TESFAYE ENITAL 02/02/2008 05/22/2013 documented as of this encounter (statuses as of 12/17/2022) [facility] of Past illness Narrative* Problem Noted Date Resolved Date CP (CEREBRAL PALSY - INFANTILE) HEMIPLEGIA, TESFAYE ENITAL 02/02/2008 05/22/2013 documented as of this encounter (statuses as of 12/21/2022) [facility] of Past illness Narrative* Problem Noted Date Resolved Date CP (CEREBRAL PALSY - INFANTILE) HEMIPLEGIA, TESFAYE ENITAL 02/02/2008 05/22/2013 documented as of this encounter (statuses as of 01/28/2023) [address]21-2008 History of Past illness Narrative* Problem Noted Date Resolved Date CP (CEREBRAL PALSY - INFANTILE) HEMIPLEGIA, TESFAYE ENITAL 02/02/2008 05/22/2013 documented as of this encounter (statuses as of 02/12/2023) [address]-2008 History of Past illness Narrative* Problem Noted Date Resolved Date CP (CEREBRAL PALSY - INFANTILE) HEMIPLEGIA, TESFAYE ENITAL 02/02/2008 05/22/2013 documented as of this encounter (statuses as of 02/15/2023) [address]-2008 History of Past illness Narrative* Problem Noted Date Resolved Date CP (CEREBRAL PALSY - INFANTILE) HEMIPLEGIA, TESFAYE ENITAL 02/02/2008 05/22/2013 documented as of this encounter (statuses as of 02/16/2023) [address]-2008 History of Past illness Narrative* Problem Noted Date Resolved Date CP (CEREBRAL PALSY - INFANTILE) HEMIPLEGIA, TESFAYE ENITAL 02/02/2008 05/22/2013 documented as of this encounter (statuses as of 02/17/2023) [address]-2008 History of Past illness Narrative* Problem Noted Date Resolved Date CP (CEREBRAL PALSY - INFANTILE) HEMIPLEGIA, TESFAYE ENITAL 02/02/2008 05/22/2013 documented as of this encounter (statuses as of 02/18/2023) [address]-2008 History of Past illness Narrative* Problem Noted Date Resolved Date CP (CEREBRAL PALSY - INFANTILE) HEMIPLEGIA, TESFAYE ENITAL 02/02/2008 05/22/2013 documented as of this encounter (statuses as of 02/26/2023) [address]-2008 History of Past illness Narrative* Problem Noted Date Resolved Date CP (CEREBRAL PALSY - INFANTILE) HEMIPLEGIA, TESFAYE ENITAL 02/02/2008 05/22/2013 documented as of this encounter (statuses as of 03/09/2023) [address]-2008 History of Past illness Narrative* Problem Noted Date Resolved Date CP (CEREBRAL PALSY - INFANTILE) HEMIPLEGIA, TESFAYE ENITAL 02/02/2008 05/22/2013 documented as of this encounter (statuses as of 03/10/2023) [facility]2008 History of Past illness Narrative* Problem Noted Date Resolved Date CP (CEREBRAL PALSY - INFANTILE) HEMIPLEGIA, TESFAYE ENITAL 02/02/2008 05/22/2013 documented as of this encounter (statuses as of 03/10/2023) [facility] note* Diagnosis Small bowel obstruction (HCC)- Primary Unspecified intestinal obstruction documented in this encounter [facility] note* Diagnosis Urinary retention- Primary Retention of urine, unspecified documented in this encounter [facility] note* Diagnosis Calculus of urinary bladder documented in this encounter [facility] note* Diagnosis Chronic constipation Unspecified constipation documented in this encounter [facility] note* Diagnosis Screening for genitourinary condition Screening for other and unspecified genitourinary condition documented in this encounter [facility] note* Diagnosis Small bowel obstruction (HCC) Unspecified intestinal obstruction Urinary retention Retention of urine, unspecified documented in this encounter [facility] note* Diagnosis Chronic constipation Unspecified constipation documented in this encounter [facility] note* Diagnosis Spina bifida with hydrocephalus, unspecified spinal region (HCC)- Primary documented in this encounter [facility] note* Diagnosis Neurogenic bladder- Primary Neurogenic bladder, NOS documented in this encounter [facility] note* Diagnosis Neurogenic bladder- Primary Neurogenic bladder, NOS documented in this encounter [facility] note* Diagnosis Chronic constipation- Primary Unspecified constipation documented in this encounter [facility] note* Diagnosis Spina bifida with hydrocephalus, unspecified spinal region (HCC)- Primary Acquired deformity of ankle and foot, unspecified laterality Neurogenic bladder Neurogenic bladder, NOS SBO (small bowel obstruction) (HCC) Unspecified intestinal obstruction Congenital hydrocephalus (HCC) Congenital hydrocephalus History of brain shunt documented in this encounter [facility] note* Diagnosis SBO (small bowel obstruction) (HCC)- [...] thrombocythemia Hyperkalemia Hyperpotassemia [facility] Diagnosis Abnormal urine color- Primary Other nonspecific finding on examination of urine Urinary catheter in place Other postprocedural status [facility] Diagnosis Spina bifida with hydrocephalus, unspecified spinal region (HCC)- Primary Congenital hydrocephalus (HCC) Congenital hydrocephalus [facility] Diagnosis Urinary tract infection without hematuria, site unspecified- Primary Hyponatremia Hyposmolality and/or hyponatremia Urinary catheter in place Other postprocedural status Neurogenic bladder Neurogenic bladder, NOS Spina bifida with hydrocephalus, unspecified spinal region (HCC) [facility] Diagnosis Thrombocytosis- Primary Essential thrombocythemia Hyponatremia Hyposmolality and/or hyponatremia documented [facility] Diagnosis Chronic constipation- Primary Unspecified constipation Spina bifida with hydrocephalus, unspecified spinal region (HCC) Redundant colon Other congenital anomalies of intestine History of small bowel obstruction Personal history of other diseases of digestive system [facility] Diagnosis Neurogenic bladder- Primary Neurogenic bladder, NOS documented [facility] Diagnosis Screening for genitourinary condition Screening for other and unspecified genitourinary condition [facility] Diagnosis Renal insufficiency- Primary Unspecified disorder of kidney and ureter [facility] Diagnosis Acute pseudo-obstruction of bowel- Primary Other specified intestinal obstruction Gastroparesis Spina bifida with hydrocephalus, unspecified spinal region (HCC) Hypokalemia Hypopotassemia [facility] Diagnosis Hyponatremia- Primary Hyposmolality and/or hyponatremia documented [facility] this [facility] Diagnosis Hyponatremia- Primary Hyposmolality and/or hyponatremia documented [facility] this [facility] Diagnosis Constipation, unspecified constipation type- Primary Redundant colon Other congenital anomalies of intestine H/O small bowel obstruction Personal history of other diseases of digestive system Spina bifida with hydrocephalus, unspecified spinal region (HCC) Neurogenic bladder Neurogenic bladder, NOS documented [facility] this encounter [facility] Diagnosis Hydrocephalus, unspecified type (HCC)- Primary [...] Thrombocytosis Essential thrombocythemia [facility] Diagnosis Hyponatremia- Primary Hyposmolality and/or hyponatremia [facility] this [facility] Diagnosis Spina bifida with hydrocephalus, unspecified spinal region (HCC) documented in this encounter [facility] Summary Purpose Family History No Family History Records FoundNo Family History Records FoundNo Family History Records Found Advance Directives No Advanced Directives Records FoundDocuments on File Type Date 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 Advance Directive(s) 03/27/2021 1:27 PM Advance Directive(s) 02/18/2021 9:25 AM Documents on File Type Date 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 Advance Directive(s) 03/27/2021 1:27 PM Advance Directive(s) 02/18/2021 9:25 AM Documents on File Type Date 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 Advance Directive(s) 04/14/2022 6:51 PM Advance Directive(s) 03/27/2021 1:27 PM Advance Directive(s) 02/18/2021 9:25 AM Documents on File Type Date 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 Advance Directive(s) 04/04/2023 7:49 PM Documents on File Type Date 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 Advance Directive(s) 04/04/2023 7:49 PM Reason for Referral Specialty Diagnoses / Procedures Referred By Rose Marie neri Referred To Contact CT IMAGING Diagnoses Small bowel obstruction (HCC) Procedures CT ABD/PEL WO IVCON CT ABD & [place] [address] [place] [address] Ct Imaging Referral ID Status Reason Start Date Expiration Date Visits Requested Visits Authorized [id number] Authorized Auto-Generat ed Referral 03/05/2022 03/04/2023 1 1 Specialty Diagnoses / Procedures Referred By Contac t Referred To Contact CT IMAGING Diagnoses Calculus of urinary bladder Procedures CT FLANK WO IVCON CT ABD & PELVIS W/O CONTRAST Marcelo Prince MD [address] [place] [address] Ct Imaging Referral ID Status Reason Start Date Expiration Date Visits Requested Visits Authorized [id number] Pending Review Auto-Generat ed Referral 02/26/2022 03/19/2023 1 1 Referral ID Status Reason Start Date Expiration Date V isits Requested Visits Authorized [id number] Closed Auto-Generate d Referral 03/05/2022 03/04/2023 1 1 Specialty Diagnoses / Procedures Referred By Contac t Referred To Contact [facility] Diagnoses Spina bifida with hydrocephalus, unspecified spinal region (HCC) Procedures CONSULT TO PHYSICAL MEDICINE AND REHABILITATION OFFICE/OUTPATIENT [facility] 60-74 MINUTES Julita Sofia DO [address] [place] [address] [facility] [place] [address] [place] [id number] Referral ID Status Reason Start Date Expiration Date Visits Requested Visits Authorized [id number] Pending Review PCP Requested Referral Auto-Generate d Referral 07/16/2022 07/16/2023 1 1 Specialty Diagnoses / Procedures Referred By Contac t Referred To Contact Neurology Diagnoses Spina bifida with hydrocephalus, unspecified spinal region (HCC) Congenital hydrocephalus (HCC) Hydrocephalus, unspecified type (HCC) Neurogenic bladder Procedures CONSULT TO NEUROLOGY OFFICE/OUTPATIENT [facility] 60-74 MINUTES Lyndon Estes MD [address] [place] [id number] Referral ID Status Reason Start Date Expiration Date Visits Requested Visits Authorized [id number] Pending Review PCP Requested Referral 08/03/2023 08/02/2024 1 1 Specialty Diagnoses / Procedures Referred By Contac t Referred To Contact [facility] Diagnoses Chronic cough Procedures LUNG DIFFUSION CAPACITY (DLCO) DIFFUSING CAPACITY Lyndon Estes MD [address] [place] [phone] [facility] [place] [address] [place] [address], [place] [address] Referral ID Status Reason Start Date Expiration Date Visits Requested Visits Authorized [id number] Pending Review Auto-Generat ed Referral 08/03/2023 09/01/2024 1 1 Specialty Diagnoses / Procedures Referred By Rose Marie neri Referred To Contact [facility] Diagnoses Chronic cough Procedures SPIROMETRY WITH DILATOR IF OBSTRUCTED BRNCDILAT RSPSE SPMTRY PRE&POST-BRNCDILAT ADMN Lyndon Estes MD [address] [place] [address] [facility] [place] [address] [place] [phone] Referral ID Status Reason Start Date Expiration Date Visits Requested Visits Authorized [id number] Pending Review Auto-Generat ed Referral 08/03/2023 09/01/2024 1 1 Additional Source Comments (unrecognized sect ion and content) No Status Records FoundNo Status Records FoundNo Status Records Found INFORMATION SOURCE (unrecogn ized section and content) DATE CREATED AUTHOR AUTHOR'S ORGANIZ ATION 12/23/2022 [facility] DATE CREATED AUTHOR AUTHOR'S ORGANIZ ATION 09/20/2023 [facility] Source Comments (unrecognize d section and content) In the event this informatio n is protected by the Federal Confidentiality of Alcohol and Drug Abuse Patient Records regulations: The Federal rules restrict any use of the information to criminally investigate or prosecute any alcohol or drug abuse patient.[facility] the event this information is protected by the Federal Confidentiality of Alcohol and Drug Abuse Patient Records regulations: The Federal rules restrict any use of the information to criminally investigate or prosecute any alcohol or drug abuse patient.[facility] the event this information is protected by the Federal Confidentiality of Alcohol and Drug Abuse Patient Records regulations: The Federal rules restrict any use of the information to criminally investigate or prosecute any alcohol or drug abuse patient.[facility] the event this information is protected by the Federal Confidentiality of Alcohol and Drug Abuse Patient Records regulations: The Federal rules restrict any use of the information to criminally investigate or prosecute any alcohol or drug abuse patient.[facility] the event this information is protected by the Federal Confidentiality of Alcohol and Drug Abuse Patient Records regulations: The Federal rules restrict any use of the information to criminally investigate or prosecute any alcohol or drug abuse patient.[facility] the event this information is protected by the Federal Confidentiality of Alcohol and Drug Abuse Patient Records regulations: The Federal rules restrict any use of the information to criminally investigate or prosecute any alcohol or drug abuse patient.[facility] the event this information is protected by the Federal Confidentiality of Alcohol and Drug Abuse Patient Records regulations: The Federal rules restrict any use of the information to criminally investigate or prosecute any alcohol or drug abuse patient.[facility] the event this information is protected by the Federal Confidentiality of Alcohol and Drug Abuse Patient Records regulations: The Federal rules restrict any use of the information to criminally investigate or prosecute any alcohol or drug abuse patient.[facility] the event this information is protected by the Federal Confidentiality of Alcohol and Drug Abuse Patient Records regulations: The Federal rules restrict any use of the information to criminally investigate or prosecute any alcohol or drug abuse patient.[facility] the event this information is protected by the Federal Confidentiality of Alcohol and Drug Abuse Patient Records regulations: The Federal rules restrict any use of the information to criminally investigate or prosecute any alcohol or drug abuse patient.[facility] the event this information is protected by the Federal Confidentiality of Alcohol and Drug Abuse Patient Records regulations: The Federal rules restrict any use of the information to criminally investigate or prosecute any alcohol or drug abuse patient.[facility] the event this information is protected by the Federal Confidentiality of Alcohol and Drug Abuse Patient Records regulations: The Federal rules restrict any use of the information to criminally investigate or prosecute any alcohol or drug abuse patient.[facility] the event this information is protected by the Federal Confidentiality of Alcohol and Drug Abuse Patient Records regulations: The Federal rules restrict any use of the information to criminally investigate or prosecute any alcohol or drug abuse patient.[facility] the event this information is protected by the Federal Confidentiality of Alcohol and Drug Abuse Patient Records regulations: The Federal rules restrict any use of the information to criminally investigate or prosecute any alcohol or drug abuse patient.[facility] the event this information is protected by the Federal Confidentiality of Alcohol and Drug Abuse Patient Records regulations: The Federal rules restrict any use of the information to criminally investigate or prosecute any alcohol or drug abuse patient.[facility] the event this information is protected by the Federal Confidentiality of Alcohol and Drug Abuse Patient Records regulations: The Federal rules restrict any use of the information to criminally investigate or prosecute any alcohol or drug abuse patient.[facility] the event this information is protected by the Federal Confidentiality of Alcohol and Drug Abuse Patient Records regulations: The Federal rules restrict any use of the information to criminally investigate or prosecute any alcohol or drug abuse patient.[facility] the event this information is protected by the Federal Confidentiality of Alcohol and Drug Abuse Patient Records regulations: The Federal rules restrict any use of the information to criminally investigate or prosecute any alcohol or drug abuse patient.[facility] the event this information is protected by the Federal Confidentiality of Alcohol and Drug Abuse Patient Records regulations: The Federal rules restrict any use of the information to criminally investigate or prosecute any alcohol or drug abuse patient.[facility] the event this information is protected by the Federal Confidentiality of Alcohol and Drug Abuse Patient Records regulations: The Federal rules restrict any use of the information to criminally investigate or prosecute any alcohol or drug abuse patient.[facility] the event this information is protected by the Federal Confidentiality of Alcohol and Drug Abuse Patient Records regulations: The Federal rules restrict any use of the information to criminally investigate or prosecute any alcohol or drug abuse patient.[facility] the event this information is protected by the Federal Confidentiality of Alcohol and Drug Abuse Patient Records regulations: The Federal rules restrict any use of the information to criminally investigate or prosecute any alcohol or drug abuse patient.[facility] the event this information is protected by the Federal Confidentiality of Alcohol and Drug Abuse Patient Records regulations: The Federal rules restrict any use of the information to criminally investigate or prosecute any alcohol or drug abuse patient.[facility] the event this information is protected by the Federal Confidentiality of Alcohol and Drug Abuse Patient Records regulations: The Federal rules restrict any use of the information to criminally investigate or prosecute any alcohol or drug abuse patient.[facility] the event this information is protected by the Federal Confidentiality of Alcohol and Drug Abuse Patient Records regulations: The Federal rules restrict any use of the information to criminally investigate or prosecute any alcohol or drug abuse patient.[facility] the event this information is protected by the Federal Confidentiality of Alcohol and Drug Abuse Patient Records regulations: The Federal rules restrict any use of the information to criminally investigate or prosecute any alcohol or drug abuse patient.[facility] the event this information is protected by the Federal Confidentiality of Alcohol and Drug Abuse Patient Records regulations: The Federal rules restrict any use of the information to criminally investigate or prosecute any alcohol or drug abuse patient.[facility] the event this information is protected by the Federal Confidentiality of Alcohol and Drug Abuse Patient Records regulations: The Federal rules restrict any use of the information to criminally investigate or prosecute any alcohol or drug abuse patient.[facility] the event this information is protected by the Federal Confidentiality of Alcohol and Drug Abuse Patient Records regulations: The Federal rules restrict any use of the information to criminally investigate or prosecute any alcohol or drug abuse patient.[facility] the event this information is protected by the Federal Confidentiality of Alcohol and Drug Abuse Patient Records regulations: The Federal rules restrict any use of the information to criminally investigate or prosecute any alcohol or drug abuse patient.[facility] the event this information is protected by the Federal Confidentiality of Alcohol and Drug Abuse Patient Records regulations: The Federal rules restrict any use of the information to criminally investigate or prosecute any alcohol or drug abuse patient.[facility] the event this information is protected by the Federal Confidentiality of Alcohol and Drug Abuse Patient Records regulations: The Federal rules restrict any use of the information to criminally investigate or prosecute any alcohol or drug abuse patient.[facility] the event this information is protected by the Federal Confidentiality of Alcohol and Drug Abuse Patient Records regulations: The Federal rules restrict any use of the information to criminally investigate or prosecute any alcohol or drug abuse patient.[facility] the event this information is protected by the Federal Confidentiality of Alcohol and Drug Abuse Patient Records regulations: The Federal rules restrict any use of the information to criminally investigate or prosecute any alcohol or drug abuse patient.[facility] the event this information is protected by the Federal Confidentiality of Alcohol and Drug Abuse Patient Records regulations: The Federal rules restrict any use of the information to criminally investigate or prosecute any alcohol or drug abuse patient.[facility] the event this information is protected by the Federal Confidentiality of Alcohol and Drug Abuse Patient Records regulations: The Federal rules restrict any use of the information to criminally investigate or prosecute any alcohol or drug abuse patient.[facility] the event this information is protected by the Federal Confidentiality of Alcohol and Drug Abuse Patient Records regulations: The Federal rules restrict any use of the information to criminally investigate or prosecute any alcohol or drug abuse patient.[facility] the event this information is protected by the Federal Confidentiality of Alcohol and Drug Abuse Patient Records regulations: The Federal rules restrict any use of the information to criminally investigate or prosecute any alcohol or drug abuse patient.[facility] the event this information is protected by the Federal Confidentiality of Alcohol and Drug Abuse Patient Records regulations: The Federal rules restrict any use of the information to criminally investigate or prosecute any alcohol or drug abuse patient.[facility] CampusIn the event this information is protected by the Federal Confidentiality of Alcohol and Drug Abuse Patient Records regulations: The Federal rules restrict any use of the information to criminally investigate or prosecute any alcohol or drug abuse patient.[facility] CampusIn the event this information is protected by the Federal Confidentiality of Alcohol and Drug Abuse Patient Records regulations: The Federal rules restrict any use of the information to criminally investigate or prosecute any alcohol or drug abuse patient.[facility] CampusIn the event this information is protected by the Federal Confidentiality of Alcohol and Drug Abuse Patient Records regulations: The Federal rules restrict any use of the information to criminally investigate or prosecute any alcohol or drug abuse patient.[facility] CampusIn the event this information is protected by the Federal Confidentiality of Alcohol and Drug Abuse Patient Records regulations: The Federal rules restrict any use of the information to criminally investigate or prosecute any alcohol or drug abuse patient.[facility] CampusIn the event this information is protected by the Federal Confidentiality of Alcohol and Drug Abuse Patient Records regulations: The Federal rules restrict any use of the information to criminally investigate or prosecute any alcohol or drug abuse patient.[facility] CampusIn the event this information is protected by the Federal Confidentiality of Alcohol and Drug Abuse Patient Records regulations: The Federal rules restrict any use of the information to criminally investigate or prosecute any alcohol or drug abuse patient.[facility] CampusIn the event this information is protected by the Federal Confidentiality of Alcohol and Drug Abuse Patient Records regulations: The Federal rules restrict any use of the information to criminally investigate or prosecute any alcohol or drug abuse patient.[facility] CampusIn the event this information is protected by the Federal Confidentiality of Alcohol and Drug Abuse Patient Records regulations: The Federal rules restrict any use of the information to criminally investigate or prosecute any alcohol or drug abuse patient.[facility] CampusIn the event this information is protected by the Federal Confidentiality of Alcohol and Drug Abuse Patient Records regulations: The Federal rules restrict any use of the information to criminally investigate or prosecute any alcohol or drug abuse patient.[facility] CampusIn the event this information is protected by the Federal Confidentiality of Alcohol and Drug Abuse Patient Records regulations: The Federal rules restrict any use of the information to criminally investigate or prosecute any alcohol or drug abuse patient.[facility] CampusIn the event this information is protected by the Federal Confidentiality of Alcohol and Drug Abuse Patient Records regulations: The Federal rules restrict any use of the information to criminally investigate or prosecute any alcohol or drug abuse patient.[facility] CampusIn the event this information is protected by the Federal Confidentiality of Alcohol and Drug Abuse Patient Records regulations: The Federal rules restrict any use of the information to criminally investigate or prosecute any alcohol or drug abuse patient.[facility] CampusIn the event this information is protected by the Federal Confidentiality of Alcohol and Drug Abuse Patient Records regulations: The Federal rules restrict any use of the information to criminally investigate or prosecute any alcohol or drug abuse patient.[facility] CampusIn the event this information is protected by the Federal Confidentiality of Alcohol and Drug Abuse Patient Records regulations: The Federal rules restrict any use of the information to criminally investigate or prosecute any alcohol or drug abuse patient.[facility] CampusIn the event this information is protected by the Federal Confidentiality of Alcohol and Drug Abuse Patient Records regulations: The Federal rules restrict any use of the information to criminally investigate or prosecute any alcohol or drug abuse patient.[facility] CampusIn the event this information is protected by the Federal Confidentiality of Alcohol and Drug Abuse Patient Records regulations: The Federal rules restrict any use of the information to criminally investigate or prosecute any alcohol or drug abuse patient.[facility] CampusIn the event this information is protected by the Federal Confidentiality of Alcohol and Drug Abuse Patient Records regulations: The Federal rules restrict any use of the information to criminally investigate or prosecute any alcohol or drug abuse patient.[facility] CampusIn the event this information is protected by the Federal Confidentiality of Alcohol and Drug Abuse Patient Records regulations: The Federal rules restrict any use of the information to criminally investigate or prosecute any alcohol or drug abuse patient.[facility] CampusIn the event this information is protected by the Federal Confidentiality of Alcohol and Drug Abuse Patient Records regulations: The Federal rules restrict any use of the information to criminally investigate or prosecute any alcohol or drug abuse patient.[facility] CampusIn the event this information is protected by the Federal Confidentiality of Alcohol and Drug Abuse Patient Records regulations: The Federal rules restrict any use of the information to criminally investigate or prosecute any alcohol or drug abuse patient.[facility] CampusIn the event this information is protected by the Federal Confidentiality of Alcohol and Drug Abuse Patient Records regulations: The Federal rules restrict any use of the information to criminally investigate or prosecute any alcohol or drug abuse patient.[facility] CampusIn the event this information is protected by the Federal Confidentiality of Alcohol and Drug Abuse Patient Records regulations: The Federal rules restrict any use of the information to criminally investigate or prosecute any alcohol or drug abuse patient.[facility] CampusIn the event this information is protected by the Federal Confidentiality of Alcohol and Drug Abuse Patient Records regulations: The Federal rules restrict any use of the information to criminally investigate or prosecute any alcohol or drug abuse patient.[facility] CampusIn the event this information is protected by the Federal Confidentiality of Alcohol and Drug Abuse Patient Records regulations: The Federal rules restrict any use of the information to criminally investigate or prosecute any alcohol or drug abuse patient.[facility] CampusIn the event this information is protected by the Federal Confidentiality of Alcohol and Drug Abuse Patient Records regulations: The Federal rules restrict any use of the information to criminally investigate or prosecute any alcohol or drug abuse patient.[facility] CampusIn the event this information is protected by the Federal Confidentiality of Alcohol and Drug Abuse Patient Records regulations: The Federal rules restrict any use of the information to criminally investigate or prosecute any alcohol or drug abuse patient.[facility] CampusIn the event this information is protected by the Federal Confidentiality of Alcohol and Drug Abuse Patient Records regulations: The Federal rules restrict any use of the information to criminally investigate or prosecute any alcohol or drug abuse patient.[facility] CampusIn the event this information is protected by the Federal Confidentiality of Alcohol and Drug Abuse Patient Records regulations: The Federal rules restrict any use of the information to criminally investigate or prosecute any alcohol or drug abuse patient.[facility] CampusIn the event this information is protected by the Federal Confidentiality of Alcohol and Drug Abuse Patient Records regulations: The Federal rules restrict any use of the information to criminally investigate or prosecute any alcohol or drug abuse patient.[facility] CampusIn the event this information is protected by the Federal Confidentiality of Alcohol and Drug Abuse Patient Records regulations: The Federal rules restrict any use of the information to criminally investigate or prosecute any alcohol or drug abuse patient.[facility] CampusIn the event this information is protected by the Federal Confidentiality of Alcohol and Drug Abuse Patient Records regulations: The Federal rules restrict any use of the information to criminally investigate or prosecute any alcohol or drug abuse patient.[facility] CampusIn the event this information is protected by the Federal Confidentiality of Alcohol and Drug Abuse Patient Records regulations: The Federal rules restrict any use of the information to criminally investigate or prosecute any alcohol or drug abuse patient.[facility] CampusIn the event this information is protected by the Federal Confidentiality of Alcohol and Drug Abuse Patient Records regulations: The Federal rules restrict any use of the information to criminally investigate or prosecute any alcohol or drug abuse patient.[facility] CampusIn the event this information is protected by the Federal Confidentiality of Alcohol and Drug Abuse Patient Records regulations: The Federal rules restrict any use of the information to criminally investigate or prosecute any alcohol or drug abuse patient.[facility] CampusIn the event this information is protected by the Federal Confidentiality of Alcohol and Drug Abuse Patient Records regulations: The Federal rules restrict any use of the information to criminally investigate or prosecute any alcohol or drug abuse patient.[facility] CampusIn the event this information is protected by the Federal Confidentiality of Alcohol and Drug Abuse Patient Records regulations: The Federal rules restrict any use of the information to criminally investigate or prosecute any alcohol or drug abuse patient.[facility] CampusIn the event this information is protected by the Federal Confidentiality of Alcohol and Drug Abuse Patient Records regulations: The Federal rules restrict any use of the information to criminally investigate or prosecute any alcohol or drug abuse patient.[facility] CampusIn the event this information is protected by the Federal Confidentiality of Alcohol and Drug Abuse Patient Records regulations: The Federal rules restrict any use of the information to criminally investigate or prosecute any alcohol or drug abuse patient.[facility] CampusIn the event this information is protected by the Federal Confidentiality of Alcohol and Drug Abuse Patient Records regulations: The Federal rules restrict any use of the information to criminally investigate or prosecute any alcohol or drug abuse patient.[facility] CampusIn the event this information is protected by the Federal Confidentiality of Alcohol and Drug Abuse Patient Records regulations: The Federal rules restrict any use of the information to criminally investigate or prosecute any alcohol or drug abuse patient.[facility] CampusIn the event this information is protected by the Federal Confidentiality of Alcohol and Drug Abuse Patient Records regulations: The Federal rules restrict any use of the information to criminally investigate or prosecute any alcohol or drug abuse patient.[facility] CampusIn the event this information is protected by the Federal Confidentiality of Alcohol and Drug Abuse Patient Records regulations: The Federal rules restrict any use of the information to criminally investigate or prosecute any alcohol or drug abuse patient.[facility] CampusIn the event this information is protected by the Federal Confidentiality of Alcohol and Drug Abuse Patient Records regulations: The Federal rules restrict any use of the information to criminally investigate or prosecute any alcohol or drug abuse patient.[facility] CampusIn the event this information is protected by the Federal Confidentiality of Alcohol and Drug Abuse Patient Records regulations: The Federal rules restrict any use of the information to criminally investigate or prosecute any alcohol or drug abuse patient.[facility] CampusIn the event this information is protected by the Federal Confidentiality of Alcohol and Drug Abuse Patient Records regulations: The Federal rules restrict any use of the information to criminally investigate or prosecute any alcohol or drug abuse patient.[facility] CampusIn the event this information is protected by the Federal Confidentiality of Alcohol and Drug Abuse Patient Records regulations: The Federal rules restrict any use of the information to criminally investigate or prosecute any alcohol or drug abuse patient.[facility] CampusIn the event this information is protected by the Federal Confidentiality of Alcohol and Drug Abuse Patient Records regulations: The Federal rules restrict any use of the information to criminally investigate or prosecute any alcohol or drug abuse patient.[facility] CampusIn the event this information is protected by the Federal Confidentiality of Alcohol and Drug Abuse Patient Records regulations: The Federal rules restrict any use of the information to criminally investigate or prosecute any alcohol or drug abuse patient.[facility] CampusIn the event this information is protected by the Federal Confidentiality of Alcohol and Drug Abuse Patient Records regulations: The Federal rules restrict any use of the information to criminally investigate or prosecute any alcohol or drug abuse patient.[facility] CampusIn the event this information is protected by the Federal Confidentiality of Alcohol and Drug Abuse Patient Records regulations: The Federal rules restrict any use of the information to criminally investigate or prosecute any alcohol or drug abuse patient.[facility] CampusIn the event this information is protected by the Federal Confidentiality of Alcohol and Drug Abuse Patient Records regulations: The Federal rules restrict any use of the information to criminally investigate or prosecute any alcohol or drug abuse patient.[facility] CampusIn the event this information is protected by the Federal Confidentiality of Alcohol and Drug Abuse Patient Records regulations: The Federal rules restrict any use of the information to criminally investigate or prosecute any alcohol or drug abuse patient.[facility] CampusIn the event this information is protected by the Federal Confidentiality of Alcohol and Drug Abuse Patient Records regulations: The Federal rules restrict any use of the information to criminally investigate or prosecute any alcohol or drug abuse patient.[facility] CampusIn the event this information is protected by the Federal Confidentiality of Alcohol and Drug Abuse Patient Records regulations: The Federal rules restrict any use of the information to criminally investigate or prosecute any alcohol or drug abuse patient.[facility] CampusIn the event this information is protected by the Federal Confidentiality of Alcohol and Drug Abuse Patient Records regulations: The Federal rules restrict any use of the information to criminally investigate or prosecute any alcohol or drug abuse patient.[facility] CampusIn the event this information is protected by the Federal Confidentiality of Alcohol and Drug Abuse Patient Records regulations: The Federal rules restrict any use of the information to criminally investigate or prosecute any alcohol or drug abuse patient.[facility] CampusIn the event this information is protected by the Federal Confidentiality of Alcohol and Drug Abuse Patient Records regulations: The Federal rules restrict any use of the information to criminally investigate or prosecute any alcohol or drug abuse patient.[facility] CampusIn the event this information is protected by the Federal Confidentiality of Alcohol and Drug Abuse Patient Records regulations: The Federal rules restrict any use of the information to criminally investigate or prosecute any alcohol or drug abuse patient.[facility] Reason for Visit (unrecogniz ed section and [...] & PEL[place] [id number] Imaging Referral ID Status Reason Start Date Expiration Date V isits Requested Visits Authorized [id number] Closed Auto-Generate d Referral 03/05/2022 03/04/2023 1 [...] Flu vaccination Reason Comments Results Reason Comments [facility] OT POC Reason Comments Order Request Reason Comments Continued Social Work order Reason Comments Hospital Follow Up Reason Onset Date Comments Transition Of Care 08/17/2022 [facility] 08/10/22-1 Reason Comments Physical Therapy orders Reason Comments Forms Reason Comments Physical Therapy Update Reason Comments New Patient Slow transit dysmoti lity Reason Comments Orders [facility] Home health Reason Comments Med Change Request Reason Comments [facility], nursing, verbal order Reason Comments Shelter Updated Reason Comments Patient Update Patient Question Reason Comments Approve for POC Reason Comments [facility] SN POC Reason Onset Date Comments Refill Request 02/17/2023 Reason Comments Delay/resumption of care Reason Onset Date Comments Transition Of Care 03/08/2023 TCM follow up Reason Comments [facility] PT POC Reason Comments Inpatient at [facility] Reason Comments Follow Up Phone Call Post Discharge F/U - attempt made. No answer. Reason Comments Home Health Nursing Call Reason Onset Date Comments Transition Of Care 04/20/2023 TCM follow-up Reason Onset Date Comments Transition Of Care 05/04/2023 TCM follow-up Reason Comments Shelter Update Reason Comments Hospital F/U Reason Comments Patient Update Results Reason Comments Home Health Medication Order Reason Comments Established Patient Constipation Reason Comments 6 Month Exam Reason Comments Hospital Admission Reason Comments Orders recert patient for home health Reason Comments Hospital F/U Reason Onset Date Comments Transition Of Care 08/18/2023 [facility] 08/09/23-1 Reason Onset Date Comments Refill Request 09/06/2023 Care Teams (unrecognized sec tion and content) Planer Feeder Relationship Specialty Start Date End Date Tommy, Lyndon J, MD [address] [facility] [place] [address] PCP - General Family Practice 12/11/18 Planer Feeder Relationship Specialty Start Date End Date Lyndon Estes MD [address] [facility] [place] [address] PCP - General Family Practice 12/11/18 Planer Feeder Relationship Specialty Start Date End Date Lyndon Estes MD [address] [facility] [place] [address] PCP - General Family Practice 12/11/18 Planer Feeder Relationship Specialty Start Date End Date Lyndon Estes MD [address] [facility] [place] [address] PCP - General Family Practice 12/11/18 Planer Feeder Relationship Specialty Start Date End Date Lyndon Estes MD [address] [facility] [place] [address] PCP - General Family Practice 12/11/18 Planer Feeder Relationship Specialty Start Date End Date Lyndon Estes MD [address] [facility] [place] [address] PCP - General Family Practice 12/11/18 Planer Feeder Relationship Specialty Start Date End Date Lyndon Estes MD [address] [facility] [place] [address] PCP - General Family Practice 12/11/18 Planer Feeder Relationship Specialty Start Date End Date Lyndon Estes MD [address] [facility] [place] [address] PCP - General Family Practice 12/11/18 Planer Feeder Relationship Specialty Start Date End Date Lyndon Estes MD [address] [facility] [place] [address] PCP - General Family Practice 12/11/18 Planer Feeder Relationship Specialty Start Date End Date Lyndon Estes MD [address] [place] [address] PCP - General Family Practice 12/11/18 Francisca Jensen MD [address] [place] [address] Referring General Surgery 04/20/22 Francisca Jensen MD [address] [place] [address] Home Care Physician General Surgery 04/20/22 Planer Feeder Relationship Specialty Start Date End Date Lyndon Estes MD [address] [place] [address] PCP - General Family Practice 12/11/18 Francisca Jensen MD [address] [place] [address] Referring General Surgery 04/20/22 Francisca Jensen MD [address] [place] [address] Home Care Physician General Surgery 04/20/22 Planer Feeder Relationship Specialty Start Date End Date Lyndon Estes MD [address] [place] [address] PCP - General Family Practice 12/11/18 Francisca Jensen MD [address] [place] [address] Referring General Surgery 04/20/22 Francisca Jensen MD [address] [place] [address] Home Care Physician General Surgery 04/20/22 Planer Feeder Relationship Specialty Start Date End Date Lyndon Estes MD [address] [place] [address] PCP - General Family Practice 12/11/18 Francisca Jensen MD [address] [place] [address] Referring General Surgery 04/20/22 Francisca Jensen MD [address] [place] [address] Home Care Physician General Surgery 04/20/22 Planer Feeder Relationship Specialty Start Date End Date Lyndon Estes MD [address] [place] [address] PCP - General Family Practice 12/11/18 Francisca Jensen MD [address] [place] [address] Referring General Surgery 04/20/22 Francisca Jensen MD [address] [place] [address] Home Care Physician General Surgery 04/20/22 Planer Feeder Relationship Specialty Start Date End Date Lyndon Estes MD [address] [place] [address] PCP - General Family Practice 12/11/18 Francisca Jensen MD [address] [place] [address] Referring General Surgery 04/20/22 Francisca Jensen MD [address] [place] [address] Home Care Physician General Surgery 04/20/22 Planer Feeder Relationship Specialty Start Date End Date Lyndon Estes MD [address] [place] [address] PCP - General Family Practice 12/11/18 Francisca Jensen MD [address] [place] [address] Referring General Surgery 04/20/22 Francisca Jensen MD [address] [place] [address] Home Care Provider General Surgery 04/20/22 Planer Feeder Relationship Specialty Start Date End Date Lyndon Estes MD [address] [place] [address] PCP - General Family Practice 12/11/18 Francisca Jensen MD [address] [place] [address] Referring General Surgery 04/20/22 Francisca Jensen MD [address] [place] [address] Home Care Provider General Surgery 04/20/22 Planer Feeder Relationship Specialty Start Date End Date Lyndon Estes MD [address] [place] [address] PCP - General Family Practice 12/11/18 Francisca Jensen MD [address] [place] [address] Referring General Surgery 04/20/22 Francisca Jensen MD [address] [place] [address] Home Care Provider General Surgery 04/20/22 Planer Feeder Relationship Specialty Start Date End Date Lyndon Estes MD [address] [place] [address] PCP - General Family Practice 12/11/18 Francisca Jensen MD [address] [place] [address] Referring General Surgery 04/20/22 Francisca Jensen MD [address] [place] [address] Home Care Provider General Surgery 04/20/22 Planer Feeder Relationship Specialty Start Date End Date Lyndon Estes MD [address] [place] [address] PCP - General Family Medicine 12/11/18 Francisca Jensen MD [address] [place] [address] Referring General Surgery 04/20/22 Francisca Jensen MD [address] [place] [address] Home Care Provider General Surgery 04/20/22 Planer Feeder Relationship Specialty Start Date End Date Lyndon Estes MD [address] [place] [address] PCP - General Family Medicine 12/11/18 Francisca Jensen MD [address] [place] [address] Referring General Surgery 04/20/22 Francisca Jensen MD [address] [place] [address] Home Care Provider General Surgery 04/20/22 Planer Feeder Relationship Specialty Start Date End Date Lyndon Estes MD [address] [place] [address] PCP - General Family Medicine 12/11/18 Francisca Jensen MD [address] [place] [address] Referring General Surgery 04/20/22 Francisca Jensen MD [address] [place] [address] Home Care Provider General Surgery 04/20/22 Planer Feeder Relationship Specialty Start Date End Date Lyndon Estes MD [address] [place] [address] PCP - General Family Medicine 12/11/18 Francisca Jensen MD [address] [place] [address] Referring General Surgery 04/20/22 Francisca Jensen MD [address] [place] [address] Home Care Provider General Surgery 04/20/22 Planer Feeder Relationship Specialty Start Date End Date Lyndon Estes MD [address] [place] [address] PCP - General Family Medicine 12/11/18 Francisca Jensen MD [address] [place] [address] Referring General Surgery 04/20/22 Francisca Jensen MD [address] [place] [address] Home Care Provider General Surgery 04/20/22 Planer Feeder Relationship Specialty Start Date End Date Lyndon Estes MD [address] [place] [address] PCP - General Family Medicine 12/11/18 Francisca Jensen MD [address] [place] [address] Referring General Surgery 04/20/22 Francisca Jensen MD [address] [place] [address] Home Care Provider General Surgery 04/20/22 Planer Feeder Relationship Specialty Start Date End Date Lyndon Estes MD [address] [place] [address] PCP - General Family Medicine 12/11/18 Francisca Jensen MD [address] [place] [address] Referring General Surgery 04/20/22 Francisca Jensen MD [address] [place] [address] Home Care Provider General Surgery 04/20/22 Planer Feeder Relationship Specialty Start Date End Date Lyndon Estes MD [address] [place] [address] PCP - General Family Medicine 12/11/18 Francisca Jensen MD [address] [place] [address] Referring General Surgery 04/20/22 Francisca Jensen MD [address] [place] [address] Home Care Provider General Surgery 04/20/22 Planer Feeder Relationship Specialty Start Date End Date Lyndon Estes MD [address] [place] [address] PCP - General Family Medicine 12/11/18 Francisca Jensen MD [address] [place] [address] Referring General Surgery 04/20/22 Francisca Jensen MD [address] [place] [address] Home Care Provider General Surgery 04/20/22 Planer Feeder Relationship Specialty Start Date End Date Lyndon Estes MD [address] [place] [address] PCP - General Family Medicine 12/11/18 Francisca Jensen MD [address] [place] [address] Referring General Surgery 04/20/22 Francisca Jensen MD [address] [place] [address] Home Care Provider General Surgery 04/20/22 Katiana Hoyos, community arts officer Clerical Car Checker 03/01/23 03/30/23 Planer Feeder Relationship Specialty Start Date End Date Lyndon Estes MD [address] [place], [place] [id number] PCP - General Family Medicine 12/11/18 Francisca Jensen MD [address] [place] [address] Referring General Surgery 04/20/22 Francisca Jensen MD [address] [place] [address] Home Care Provider General Surgery 04/20/22 Katiana Hoyos, community arts officer Clerical Car Checker 03/01/23 03/30/23 Planer Feeder Relationship Specialty Start Date End Date Lyndon Estes MD [address] [place], [place] [address] PCP - General Family Medicine 12/11/18 Francisca Jensen MD [address] [place] [address] Referring General Surgery 04/20/22 Francisca Jensen MD [address] [place] [address] Home Care Provider General Surgery 04/20/22 Giselle Reese community arts officer Clerical Car Checker 04/06/23 05/04/23 Planer Feeder Relationship Specialty Start Date End Date Lyndon Estes MD [address] [place] [address] PCP - General Family Medicine 12/11/18 Francisca Jensen MD [address] [place] [address] Referring General Surgery 04/20/22 Francisca Jensen MD [address] [place] [address] Home Care Provider General Surgery 04/20/22 Giselle Reese, community arts officer Clerical Car Checker 04/06/23 05/04/23 Planer Feeder Relationship Specialty Start Date End Date Lyndon Estes MD [address] [place] [address] PCP - General Family Medicine 12/11/18 Francisca Jensen MD [address] [place] [address] Referring General Surgery 04/20/22 Francisca Jensen MD [address] [place] [address] Home Care Provider General Surgery 04/20/22 Giselle Reese, community arts officer Clerical Car Checker 04/06/23 05/04/23 Planer Feeder Relationship Specialty Start Date End Date Lyndon Estes MD [address] [place] [address] PCP - General Family Medicine 12/11/18 Francisca Jensen MD [address] [place] [address] Referring General Surgery 04/20/22 Francisca Jensen MD [address] [place] [address] Home Care Provider General Surgery 04/20/22 Planer Feeder Relationship Specialty Start Date End Date Lyndon Estes MD [address] [place] [address] PCP - General Family Medicine 12/11/18 Francisca Jensen MD [address] [place] [address] Referring General Surgery 04/20/22 Francisca Jensen MD [address] [place], [place] [address] Home Care Provider General Surgery 04/20/22 Planer Feeder Relationship Specialty Start Date End Date Lyndon Estes MD [address] [place] [address] PCP - General Family Medicine 12/11/18 Francisca Jensen MD [address] [place] [address] Referring General Surgery 04/20/22 Francisca Jensen MD [address] [place] [address] Home Care Provider General Surgery 04/20/22 Planer Feeder Relationship Specialty Start Date End Date Lyndon Estes MD [address] [place] [address] PCP - General Family Medicine 12/11/18 Francisca Jensen MD [address] [place] [address] Referring General Surgery 04/20/22 Francisca Jensen MD [address] [place] [address] Home Care Provider General Surgery 04/20/22 Planer Feeder Relationship Specialty Start Date End Date Lyndon Estes MD [address] [place] [address] PCP - General Family Medicine 12/11/18 Francisca Jensen MD [address] [place] [address] Referring General Surgery 04/20/22 Francisca Jensen MD [address] [place] [address] Home Care Provider General Surgery 04/20/22 Planer Feeder Relationship Specialty Start Date End Date Lyndon Estes MD [address] [place] [address] PCP - General Family Medicine 12/11/18 Francisca Jensen MD [address] [place] [address] Referring General Surgery 04/20/22 Francisca Jensen MD [address] [place] [address] Home Care Provider General Surgery 04/20/22 Planer Feeder Relationship Specialty Start Date End Date Lyndon Estes MD [address] [place] [address] PCP - General Family Medicine 12/11/18 Francisca Jensen MD [address] [place], [place] [address] [phone] Referring General Surgery 04/20/22 Francisca Jensen MD [address] [place] [address] Home Care Provider General Surgery 04/20/22 Giselle Reese, community arts officer Clerical Car Checker 04/06/23 05/04/23 Planer Feeder Relationship Specialty Start Date End Date Lyndon Estes MD [address] [place], [place] [address] PCP - General Family Medicine 12/11/18 Francisca Jensen MD [address] [place] [address] Referring General Surgery 04/20/22 Francisca Jensen MD [address] [place] [address] Home Care Provider General Surgery 04/20/22 Planer Feeder Relationship Specialty Start Date End Date Lyndon Estes MD [address] [place] [address] PCP - General Family Medicine 12/11/18 Francisca Jensen MD [address] [place] [address] Referring General Surgery 04/20/22 Francisca Jensen MD [address] [place] [address] Home Care Provider General Surgery 04/20/22 Planer Feeder Relationship Specialty Start Date End Date Lyndon Estes MD [address] [place] [address] PCP - General Family Medicine 12/11/18 Francisca Jensen MD [address] [place] [address] Referring General Surgery 04/20/22 Francisca Jensen MD [address] [place] [address] Home Care Provider General Surgery 04/20/22 Planer Feeder Relationship Specialty Start Date End Date Lyndon Estes MD [address] [place] [address] PCP - General Family Medicine 12/11/18 Francisca Jensen MD [address] [place] [address] Referring General Surgery 04/20/22 Francisca Jensen MD [address] [place] [address] Home Care Provider General Surgery [...] BE BASED ON THE PRIMARY CLINICAL RECORDS. [employer] [facility]. provides no warranty or guarantee of the accuracy or completeness of information in this document.
[2023-09-20] MEDS: 0.9% Normal Saline (1000mL) 1,000 ML 75 ML IV (23:00)
[2023-09-21 00:20] VITALS: O2SAT 96
[2023-09-21] MEDS: Baclofen 10 MG Tablet 5 MG PO ×4 (00:22→22:46)
[2023-09-21 05:09] LABS: Absolute Lymphocyte Count 2.09 X10^3/uL (0.83-4.51); Absolute Neutrophil Count 9.6 X10^3/uL (2.0-7.7); Basophil# 0.02 X10^3/uL; Basophil% 0.1 % (0-1); Eosinophil# 0.03 X10^3/uL; Eosinophils% 0.2 % (0-5); Hematocrit 34.7 % (40-54); Hemoglobin 11.5 g/dL (13.0-16.5); Lymphocyte # 2.09 X10^3/ul (0.83-4.51); Lymphocyte % 15.7 % (19-41); Mean Corp Hgb Conc 33.1 g/dL (32-36); Mean Corpuscular Hgb 28.3 pg (27.0-32.0); Mean Corpuscular Volume 85.5 fL (80-94); Mean Platelet Vol. 10.1 fl (6.2-12.0); Monocyte# 1.58 X10^3/uL; Monocyte% 11.8 % (0-10); NRBC Flagged by Analyzer 0 % (0-5); Neutrophil # 9.57 X10^3/uL (2.7-7.7); Neutrophil % 71.8 % (47-70); POSITIVE DIFFERENTIAL YES; Platelet Count 335 K/mm3 (150-450); RBC Distribution Width SD 40.3 fl (35.1-43.9); Red Blood Count 4.06 M/mm3 (4.6-6.2); White Blood Count 13.4 K/mm3 (4.4-11.0)
[2023-09-21 05:30] VITALS: BP 110/67; PULSE 84; RESP 16; TEMP 37.1; O2SAT 95
[2023-09-21 05:36] LABS: Anion Gap 6 (5-15); BUN 8 mg/dL (7-18); BUN/Creat Ratio 14.8 RATIO (10-20); Chloride 98 mmol/L (98-107); Creatinine, Serum 0.54 mg/dL (0.70-1.30); EST Glomerular Filtration Rate 167 mL/min (>60); Est Glom Filt Rate - Afr Amer 202 mL/min (>60); Estimated Creatinine Clearance 105.38 ml/min; Glucose 109 mg/dL (74-106); Potassium 3.6 mmol/L (3.5-5.1); Sodium Level 129 mmol/L (136-145)
[2023-09-21] MEDS: Acetaminophen 500 MG Tablet 1000 MG PO (05:38)
[2023-09-21] MEDS: Miconazole Nitrate 43 GM Bottle 1 APPLIC TOPICAL ×3 (05:43→22:35)
[2023-09-21] MEDS: 0.9% Normal Saline (1000mL) 1,000 ML 75 ML IV ×2 (05:46→13:59)
[2023-09-21 06:00] VITALS: BMI 18.8
[2023-09-21 06:07] LABS: Differential Indicated SCAN CRITERIA MET
[2023-09-21 06:14] LABS: Differential Comment SCANNED
--- NOTE | 2023-09-21 08:21 | PCM.PN.HOSP ---
Reason for Visit Reason for Visit: Diagnoses Elevated white blood cell count, unspecified (09/20/23) Hypo-osmolality and hyponatremia (09/20/23) Urinary tract infection, site not specified (09/20/23) COVID-19 (09/20/23) Presence of other specified devices (09/20/23) Subjective Subjective Discussed the case with the patient's sister he said bedside. Stated he has not had much in way of bowel movements and she is concerned that he may start developing another ileus. I requested to be able to give him enemas. Objective Data Objective Data Vital Signs: Vital Signs Temp Pulse Resp BP Pulse Ox O2 Del Method 37.1 C 84 16 110/67 95 Room Air 09/21/23 05:30 09/21/23 05:30 09/21/23 05:30 09/21/23 05:30 09/21/23 05:30 09/21/23 05:30 Oxygen Delivery Method Room Air Weight: 48.1 kg Body Mass Index (BMI) 18.8 Intake & Output: Intake and Output for Last 24 Hours 09/19/23 09/20/23 09/21/23 23:59 23:59 23:59 Intake Total 1000 / 1000 507.5 / 507.5 Output Total 200 / 200 1250 / 1250 Balance 800 / 800 -742.5 / -742.5 Lab / Micro Data 09/21/23 04:36 09/21/23 04:36 Labs: Laboratory Results - last 24 hr 09/20/23 19:35: WBC 19.4 H, RBC 4.35 L, Hgb 12.3 L, Hct 36.8 L, MCV 84.6, MCH 28.3, MCHC 33.4, RDW Std Deviation 39.8, RDW Coeff of Frieda 12.9, Plt Count 366, MPV 9.7, Immature Gran % (Auto) 0.500, Neut % (Auto) 80.2 H, Lymph % (Auto) 5.9 L, [place] % (Auto) 12.8 H, Eos % (Auto) 0.4, Baso % (Auto) 0.2, Absolute Neuts (auto) 15.6 H, Absolute Lymphs (auto) 1.14, Nucleated RBC % 0, Differential Comment SCANNED, Diff Path Review March, PT 14.5, INR 1.1, APTT 32.9, Sodium 124 L, Potassium 3.6, Chloride 90 L, Carbon Dioxide 27.0, Anion Gap 7, BUN 12, Creatinine 0.68 L, Est GFR (MDRD) Af Amer 155, Est GFR (MDRD) Non-Af 128, BUN/Creatinine Ratio 17.6, Glucose 120 H, Lactic Acid 0.9, Calcium 8.3 L, Total Bilirubin 0.50, AST 11 L, ALT 16, Alkaline Phosphatase 62, Total Protein 7.0, Albumin 3.0 L, Globulin 4.0, Albumin/Globulin Ratio 0.8 L 09/20/23 19:45: Urine Color Yellow, Urine Clarity Cloudy, Urine pH 7.0, Ur Specific [place] 1.010, Urine Protein 100 H, Urine Glucose (UA) Normal, Urine Ketones 15 H, Urine Occult Blood 50 H, Urine Nitrite Positive H, Urine Bilirubin Negative, Urine Urobilinogen Normal, Ur Leukocyte Esterase 500 H, Urine RBC 10-25 SEEN, Urine WBC 25-50 SEEN, Ur Squamous Epith Cells 0 SEEN, Urine Bacteria 2+, Urine Mucus 0 SEEN 09/21/23 04:36: WBC 13.4 H, RBC 4.06 L, Hgb 11.5 L, Hct 34.7 L, MCV 85.5, MCH 28.3, MCHC 33.1, RDW Std Deviation 40.3, RDW Coeff of Frieda 13.0, Plt Count 335, MPV 10.1, Immature Gran % (Auto) 0.400, Neut % (Auto) 71.8 H, Lymph % (Auto) 15.7 L, [place] % (Auto) 11.8 H, Eos % (Auto) 0.2, Baso % (Auto) 0.1, Absolute Neuts (auto) 9.6 H, Absolute Lymphs (auto) 2.09, Nucleated RBC % 0, Differential Comment SCANNED, Diff Path Review March, Sodium 129 L, Potassium 3.6, Chloride 98, Carbon Dioxide 25.0, Anion Gap 6, BUN 8, Creatinine 0.54 L, Estim Creat Clear Calc 105.38, Est GFR (MDRD) Af Amer 202, Est GFR (MDRD) Non-Af 167, BUN/Creatinine Ratio 14.8, Glucose 109 H, Calcium 8.0 L Micro: Microbiology 09/20/23 19:29 Nasal Secretion SARS-CoV-2 Antigen (Rapid) - Final SARS-CoV-2 (COVID 19) Radiography Diagnostic Testing: Radiology Impression Chest X-Ray 09/20/23 19:50 IMPRESSION: 1. No acute pathology in the chest. 2. Mild gaseous distention of bowel in the upper abdomen partially visualized. No discrete evidence of subdiaphragmatic air. Electronically Signed: Conor Carrasco, DO at 20:06 EST , Rhythm Strip Rhythm Strip: Sinus Rhythm Rate: 95 Ectopy: None Physical Exam Const alert and no apparent distress HEENT head/scalp atraumatic and moist oral mucous membranes Resp normal respiratory effort and no retractions Cardio regular rate, regular rhythm, S1 normal heart sound and S2 normal heart sound GI normal to inspection, nondistended, normoactive bowel sounds, soft to palpation, non-tender and non-distended Extremity normal to inspection Assessment & Plan Assessment/Plan (1) Complicated UTI (urinary tract infection): PLAN: CAUTI. Catheter changed. Antibiotics with ceftriaxone. Await final urine culture results. (2) COVID-19: PLAN: On room air. Chest x-ray showed no pneumonia. No treatment for COVID-19 indicated at this time. Positive test on the . Patient will need to quarantine through the . (3) Acute hyponatremia: PLAN: Hyponatremia of 124 mmol/L present on admission compounding #1 and #2- Give normal saline IV fluids and recheck BMP in the a.m. to ensure improvement. Improving PLAN: Plan Chronic conditions History of recurrent ileus: Patient has scans that look like small bowel obstruction but generally respond to conservative measures. Seems to be more consistent with an ileus. Patient has been admitted here on numerous occasions as he surgeons in [place] do not feel that is an actual small bowel obstruction. Patient has responded well to conservative measures. General surgery here has repeatedly declined to be involved with the patient's care as it is beyond their scope given the patient's history of EMOTIONALLY IMPAIRED TEACHER shunt. Currently no ongoing issues at this time but would advise caution with narcotics given this patient's history.Patient sister asking to be able to give him enemas. I feel that would be fine. I would defer to her as she is very intimately involved with his care at home. She is actually administered suppositories and enemas for him in the hospital during previous encounters. History of normal pressure hydrocephalus since ; status post EMOTIONALLY IMPAIRED TEACHER shunt with seizure disorder - Continue home medications as previous. History of BPH, bladder diverticulum and bladder stones - Stable. DVT prophylaxis - Lovenox 40 mg subcu daily. I believe the patient's sister was a former nurse, but when the patient is hospitalized previously she is actually very involved in his care in regards to changing him and tending to many of his nursing needs. Charges/Coding Visit Charges Inpatient E&M: 72992 Subs Hosp L2
[2023-09-21 09:15] VITALS: BP 131/84; PULSE 84; RESP 18; TEMP 36.6; O2SAT 97
[2023-09-21] MEDS: Phenylephrine 0.25%/Cocoa Btr 1 Rectal Supp 1 SUPP RC (09:16)
[2023-09-21] MEDS: Enoxaparin 40 MG/0.4 ML Syringe SC ×2 (09:16→22:30)
[2023-09-21] MEDS: Pantoprazole Sodium 20 MG Tablet PO (09:16)
[2023-09-21] MEDS: Zinc Sulfate 50 mg zinc (220 mg) ORAL capsule PO (10:29)
[2023-09-21] MEDS: Cholecalciferol (Vit D3) 125 MCG CAPSULE (5,000 UNITS) PO (10:29)
[2023-09-21] MEDS: Ascorbic Acid 500 MG Tablet 1000 MG PO (10:29)
[2023-09-21 13:16] VITALS: O2SAT 96
--- NOTE | 2023-09-21 14:31 | NURSING ---
This RN assisted pt's sister to give fleet enema.
[2023-09-21] MEDS: Bisacodyl 10 MG Suppository RC (14:40)
[2023-09-21 15:15] VITALS: BP 124/77; PULSE 77; RESP 18; TEMP 36.3; O2SAT 98
[2023-09-21] MEDS: Tamsulosin HCl 0.4 MG Capsule 0.400000000000000022 MG PO (16:15)
[2023-09-21 22:22] VITALS: BP 112/67; PULSE 78; RESP 16; TEMP 37; O2SAT 99
[2023-09-21] MEDS: Ceftriaxone 1 GM/50 ML BAG IV (22:31)
[2023-09-22 03:34] VITALS: BP 123/75; PULSE 85; RESP 16; TEMP 36.7; O2SAT 98
[2023-09-22] MEDS: 0.9% Normal Saline (1000mL) 1,000 ML 75 ML IV (03:36)
[2023-09-22] MEDS: Baclofen 10 MG Tablet 5 MG PO ×2 (05:44→14:00)
[2023-09-22] MEDS: Miconazole Nitrate 43 GM Bottle 1 APPLIC TOPICAL (05:46)
[2023-09-22 06:52] LABS: Absolute Lymphocyte Count 1.24 X10^3/uL (0.83-4.51); Absolute Neutrophil Count 4.8 X10^3/uL (2.0-7.7); Basophil# 0.01 X10^3/uL; Basophil% 0.1 % (0-1); Eosinophil# 0.06 X10^3/uL; Eosinophils% 0.9 % (0-5); Hematocrit 32.9 % (40-54); Hemoglobin 11.4 g/dL (13.0-16.5); Lymphocyte # 1.24 X10^3/ul (0.83-4.51); Mean Corp Hgb Conc 34.7 g/dL (32-36); Mean Corpuscular Hgb 29.4 pg (27.0-32.0); Mean Corpuscular Volume 84.8 fL (80-94); Mean Platelet Vol. 9.7 fl (6.2-12.0); Monocyte# 0.78 X10^3/uL; Monocyte% 11.3 % (0-10); NRBC Flagged by Analyzer 0 % (0-5); Neutrophil # 4.78 X10^3/uL (2.7-7.7); Neutrophil % 69.4 % (47-70); Platelet Count 327 K/mm3 (150-450); RBC Distribution Width CV 13.2 % (11.6-14.6); RBC Distribution Width SD 40.9 fl (35.1-43.9); Red Blood Count 3.88 M/mm3 (4.6-6.2); White Blood Count 6.9 K/mm3 (4.4-11.0)
[2023-09-22 07:25] VITALS: O2SAT 97
[2023-09-22 07:27] LABS: Anion Gap 7 (5-15); BUN 5 mg/dL (7-18); BUN/Creat Ratio 10.4 RATIO (10-20); Calcium,Total 6.6 mg/dL (8.5-10.1); Chloride 98 mmol/L (98-107); Creatinine, Serum 0.48 mg/dL (0.70-1.30); EST Glomerular Filtration Rate 192 mL/min (>60); Est Glom Filt Rate - Afr Amer 233 mL/min (>60); Glucose 111 mg/dL (74-106); Potassium 3.5 mmol/L (3.5-5.1); Sodium Level 129 mmol/L (136-145)
[2023-09-22] MEDS: LINACLOTIDE 290 MCG CAPSULE PO (08:13)
[2023-09-22] MEDS: Zinc Sulfate 50 mg zinc (220 mg) ORAL capsule PO (08:14)
[2023-09-22] MEDS: Pantoprazole Sodium 20 MG Tablet PO (08:14)
[2023-09-22] MEDS: Cholecalciferol (Vit D3) 125 MCG CAPSULE (5,000 UNITS) PO (08:14)
[2023-09-22] MEDS: Ascorbic Acid 500 MG Tablet 1000 MG PO (08:14)
[2023-09-22] MEDS: PRUCALOPRIDE SUCCINATE 2 MG TABLET PO (08:14)
[2023-09-22] MEDS: Phenylephrine 0.25%/Cocoa Btr 1 Rectal Supp 1 SUPP RC (08:15)
[2023-09-22] MEDS: Enoxaparin 40 MG/0.4 ML Syringe SC (08:15)
[2023-09-22 08:17] VITALS: BP 127/90; PULSE 79; RESP 16; TEMP 36; O2SAT 98
--- NOTE | 2023-09-22 09:08 | PN.HOSP_ITS ---
Reason for Visit Reason for Visit: Diagnoses Elevated white blood cell count, unspecified (09/20/23) Hypo-osmolality and hyponatremia (09/20/23) Urinary tract infection, site not specified (09/20/23) COVID-19 (09/20/23) Presence of other specified devices (09/20/23) Objective Data Objective Data Vital Signs: Vital Signs Temp Pulse Resp BP Pulse Ox O2 Del Method 96.8 F L 79 16 127/90 H 98 Room Air 09/22/23 08:17 09/22/23 08:17 09/22/23 08:17 09/22/23 08:17 09/22/23 08:17 09/22/23 08:17 Oxygen Delivery Method Room Air Weight: 106 lb 0.677 oz Body Mass Index (BMI) 18.8 Intake & Output: Intake and Output for Last 24 Hours 09/20/23 09/21/23 09/22/23 23:59 23:59 23:59 Intake Total 1000 / 1000 2373.75 / 2373.75 1000 / 1000 Output Total 200 / 200 3200 / 3200 1000 / 1000 Balance 800 / 800 -826.25 / -826.25 0 / 0 Medical Nutrition Assessment Dietitian: Malnutrition Criteria Met Start: 09/21/23 14:54 Freq: Status: Active Protocol: Document 09/21/23 14:54 RMA (Rec: 09/21/23 14:54 RMA [id number]) Nutrition Malnutrition Evidence of Malnutrition Exists Yes Malnutrition (severe): Chronic Evidenced By Suboptimal Energy Intake ( Severe),Weight Loss (Severe) Intake Problem Inadequate Oral Intake Etiology related to altered GI function Signs/Symptoms as evidenced by ~14% unintentional weight loss x less than 2 months Status Active Problem Clinical Problem Chronic Disease or Condition Related Malnutrition Etiology Severe protein-calorie malnutrition in the context of chronic disease related to inadequate oral intake and altered GI function/recurrent ileus Signs/Symptoms as evidenced by BMI 18.8, ~14% weight loss x less than 2 months and PO meeting less than 50% estimated nutrition needs x past 1 month Status Active Problem Recommendation Dietitian Recommendations/Changes Will liberalize diet to regular w/ fiber-restriction given recurrent ileus/ obstructions. Will add ensure compact TID w/ meals as tolerated. Additional ONS as needed. Reweigh patient as able for further assessment. Lab / Micro Data 09/22/23 06:20 09/22/23 06:20 Labs: Laboratory Results - last 24 hr 09/22/23 06:20: WBC 6.9, RBC 3.88 L, Hgb 11.4 L, Hct 32.9 L, MCV 84.8, MCH 29.4, MCHC 34.7, RDW Std Deviation 40.9, RDW Coeff of Frieda 13.2, Plt Count 327, MPV 9.7, Immature Gran % (Auto) 0.300, Neut % (Auto) 69.4, Lymph % (Auto) 18.0 L, [place] % (Auto) 11.3 H, Eos % (Auto) 0.9, Baso % (Auto) 0.1, Absolute Neuts (auto) 4.8, Absolute Lymphs (auto) 1.24, Nucleated RBC % 0, Sodium 129 L, Potassium 3.5, Chloride 98, Carbon Dioxide 24.0, Anion Gap 7, BUN 5 L, Creatinine 0.48 L, Estim Creat Clear Calc 118.30, Est GFR (MDRD) Af Amer 233, Est GFR (MDRD) Non-Af 192, BUN/Creatinine Ratio 10.4, Glucose 111 H, Calcium 6.6 L Micro: Microbiology 09/20/23 19:45 Urine Catheter - Bowman Urine Culture - Final Escherichia coli Proteus mirabilis 09/20/23 19:29 Nasal Secretion SARS-CoV-2 Antigen (Rapid) - Final SARS-CoV-2 (COVID 19) Rhythm Strip Rhythm Strip: Sinus Rhythm Rate: 95 Ectopy: None Physical Exam Narrative Patient is atrophied foot muscles bilaterally; right greater than left. Assessment & Plan Assessment/Plan (1) Complicated UTI (urinary tract infection): PLAN: CAUTI. Catheter changed. Antibiotics with ceftriaxone. Await final urine culture results. (2) COVID-19: PLAN: On room air. Chest x-ray showed no pneumonia. No treatment for COVID-19 indicated at this time. Positive test on the . Patient will need to quarantine through the . (3) Acute hyponatremia: PLAN: Hyponatremia of 124 mmol/L present on admission compounding #1 and #2- Give normal saline IV fluids and recheck BMP in the a.m. to ensure improvement. Improving PLAN: Plan Chronic conditions * History of recurrent ileus: Patient has scans that look like small bowel obstruction but generally respond to conservative measures. Seems to be more consistent with an ileus. Patient has been admitted here on numerous occasions as he surgeons in [place] do not feel that is an actual small bowel obstruction. Patient has responded well to conservative measures. 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 Currently no ongoing issues at this time but would advise caution with narcotics given this patient's history.Patient sister asking to be able to give him enemas. I feel that would be fine. I would defer to her as she is very intimately involved with his care at home. She is actually administered suppositories and enemas for him in the hospital during previous encounters. 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 * History of BPH, bladder diverticulum and bladder stones - Stable. DVT prophylaxis - Lovenox 40 mg subcu daily. I believe the patient's sister was a former nurse, but when the patient is hospitalized previously she is actually very involved in his care in regards to changing him and tending to many of his nursing needs.
[2023-09-22 09:21] LABS: Pathologist Review Reviewed
[2023-09-22 09:27] LABS: Pathologist Review Reviewed
--- NOTE | 2023-09-22 11:10 | PCM.DC ---
Discharge Instructions Diet Discharge Diet: Light diet - advance as tolerated ( Soft diet easy to chew, protein rich diet.) and - Activity Discharge Activity: Return to Normal Activity Weight Bearing Status: Partial weight bearing Dressing / Incision Call your doctor if you observe: Fever of 101 or Higher, Coldness, Increased Pain, Numbness or Tingling, Change in Color, Inability to urinate, Inability to have a bowel movement, Shortness of breath, Dizziness, Fainting spells, Swelling in the ankles, Chest pain, Prolonged hiccupping, Increased palpitations (irregular heartbeat) and Calf discomfort Follow Up Care When: IN 2 WEEKS Test Results: Test results from this visit will be discussed in further detail at your follow-up appointment, if applicable. Discharge Plan Admission Admit Date/Time: 09/20/23 21:57 Attending Provider: London Braden Primary Care Provider: Lyndon Sanders Consulting Providers: Gavino Pena; Richard Palacio Instructions Additional Instructions / Restrictions: Follow-up in [facility] urologist for kidney stones Discharge Orders/Prescriptions Prescriptions: New bisacodyl 10 mg Suppository 10 mg RI DAILY PRN (Reason: Constipation) Qty: 0 0RF ciprofloxacin HCl 500 mg tablet 500 mg PO BID Qty: 10 0RF Continued baclofen 5 MG tablet 5 mg PO TID Patient Comments: Hold for sedation/lethargy Linzess 290 mcg capsule 290 mcg PO DAILY omeprazole 20 mg capsule,delayed release(DR/EC) 20 mg PO DAILY Motegrity 2 mg tablet 2 mg PO DAILY tamsulosin 0.4 mg Capsule 0.4 mg PO 1730 metoclopramide HCl [Reglan] 5 mg tablet 5 mg PO Q6H PRN (Reason: nausea and vomiting) Referrals / Follow Up: Lyndon Sanders MD [Primary Care Provider] - Within 2 Weeks Chang Grant MD [Med Staff - Active Staff] - Within 1 Month (for recurrent ileus) Disposition Disposition (needs filled in before D/C Order can be placed): Home Health Service
--- NOTE | 2023-09-22 13:19 | DS.PCM_ITS ---
Providers Date of Admission: 09/20/23 Date of Discharge: 09/22/23 Primary Care Physician: Dr. Lyndon Sanders MD Reason For Visit: UTI, SUBACUTE COVID-19 AND HYPONATREMIA OF 124 POA Diagnosis Discharge Diagnosis (1) Complicated UTI (urinary tract infection): Status: Acute Code(s): N39.0 - Urinary tract infection, site not specified Plan: CAUTI. Catheter changed. Antibiotics with ceftriaxone. Await final urine culture results. (2) COVID-19: Status: Acute Code(s): U07.1 - COVID-19 Plan: On room air. Chest x-ray showed no pneumonia. No treatment for COVID-19 indicated at this time. Positive test on the . Patient will need to quarantine through the . Follow with PCP. Patient might benefit from booster COVID injection with multiple variants (3) Acute hyponatremia: Status: Acute Code(s): E87.1 - Hypo-osmolality and hyponatremia Plan: Sodium is 129 for last 2 days. I think he might have isovolemic hyponatremia. Follow with PCP. Plan Chronic conditions * History of recurrent ileus: Patient has scans that look like small bowel obstruction but generally respond to conservative measures. Seems to be more consistent with an ileus. Patient has been admitted here on numerous occasions as he surgeons in [place] do not feel that is an actual small bowel obstruction. Patient has responded well to conservative measures. General surgery here has repeatedly declined to be involved with the patient's care as it is beyond their scope given the patient's history of [employer] shunt. Currently no ongoing issues at this time but would advise caution with narcotics given this patient's history.Patient sister asking to be able to give him enemas. I feel that would be fine. I would defer to her as she is very intimately involved with his care at home. She is actually administered suppositories and enemas for him in the hospital during previous encounters. * Follow-up with Dr. Steve Nichols surgeon. * History of normal pressure hydrocephalus since ; status post [employer] shunt with seizure disorder - Continue home medications as previous. * History of BPH, bladder diverticulum and bladder stones - Stable. DVT prophylaxis - Lovenox 40 mg subcu daily. I believe the patient's sister was a former nurse, Mrs. Lesli Bansal multiple health conditions including recurrent UTI from stone and indwelling Bowman catheter. Patient also COVID-19 infection follow with PCP. He also has recurrent ileus and requires suppositories and enema. Her sister takes care of it. Follow-up with surgeon. Discharge medication reconciliation done. Discharge follow-up instructions completed. Discharge process discussed with the patient and all questions were answered to patient's satisfaction. Follow with PCP in 1 to 2 weeks Total time spent, exact 35 minutes on discharge meds reconciliation, examination, coordination of care with nurses and ancillary staff, review of imaging and blood test and discussion with the patient on follow-up instructions. Medications at Discharge Home Medications baclofen 5 mg tablet 5 mg PO TID MUSCLE SPASMS 07/21/22 linaclotide 290 mcg capsule (Linzess) 290 mcg PO DAILY IRRITABLE BOWELS 08/09/23 omeprazole 20 mg capsule,delayed release 20 mg PO DAILY ACID REFLUX 08/09/23 prucalopride 2 mg tablet (Motegrity) 2 mg PO DAILY CHRONIC CONSTIPATION 08/09/23 tamsulosin 0.4 mg capsule 0.4 mg PO 1730 PROSTATE 08/09/23 metoclopramide HCl 5 mg tablet (Reglan) 5 mg PO Q6H PRN nausea and vomiting 09/20/23 bisacodyl 10 mg rectal suppository 10 mg WV DAILY PRN Constipation #0 ea 09/22/23 ciprofloxacin HCl 500 mg tablet 500 mg PO BID #10 tabs 09/22/23 Physical Exam Narrative Seen and examined. Patient is states no abdominal pain. Patient had good bowel movement. Physical exam General: Awake. Oriented x3. HEENT: Atraumatic, PERRLA, EOMI, Normocephalic Oral: No Gingival or Mucosal Lesions/ Ulcerations Neck: Supple, No JVD, Negative Carotid Bruits Lungs: Air entry diminished in bilateral lung bases. No crepitation/rhonchi. On room air. Cardiovascular: Regular rate, Regular Rhythm, Normal S1, Normal S2, No murmurs Abdomen: Abdominal surgical scar. Bowel Sounds Present, Soft, Non Tender, Non- Distended : No renal angle tenderness. No suprapubic tenderness. Extremities: No edema, Capillary Refill Less than 3 Seconds Skin: No rashes, No breakdown Musculoskeletal: Moderate to severe atrophy of muscles of extremity. No Tenderness to Palpation of Joints or Extremities Neurological: Cranial nerves II-XII grossly intact, DTR 2+/4. No acute focal neurological deficit. Psych/Mental Status: Flat affect. Medical Records Data Medical Nutrition Assessment Dietitian: Malnutrition Criteria Met Start: 09/21/23 14:54 Freq: Status: Active Protocol: Document 09/21/23 14:54 RMA (Rec: 09/21/23 14:54 RMA [id number]) Nutrition Malnutrition Evidence of Malnutrition Exists Yes Malnutrition (severe): Chronic Evidenced By Suboptimal Energy Intake ( Severe),Weight Loss (Severe) Intake Problem Inadequate Oral Intake Etiology related to altered GI function Signs/Symptoms as evidenced by ~14% unintentional weight loss x less than 2 months Status Active Problem Clinical Problem Chronic Disease or Condition Related Malnutrition Etiology Severe protein-calorie malnutrition in the context of chronic disease related to inadequate oral intake and altered GI function/recurrent ileus Signs/Symptoms as evidenced by BMI 18.8, ~14% weight loss x less than 2 months and PO meeting less than 50% estimated nutrition needs x past 1 month Status Active Problem Recommendation Dietitian Recommendations/Changes Will liberalize diet to regular w/ fiber-restriction given recurrent ileus/ obstructions. Will add ensure compact TID w/ meals as tolerated. Additional ONS as needed. Reweigh patient as able for further assessment. Weight / BMI Weight Weight: 106 lb 0.677 oz Body Mass Index (BMI) 18.8 ABG / Lab / Microbiology Data 09/22/23 06:20 09/22/23 06:20 Laboratory: Laboratory Results - last 24 hr 09/20/23 19:35: Diff Path Review Reviewed 09/21/23 04:36: Diff Path Review Reviewed 09/22/23 06:20: WBC 6.9, RBC 3.88 L, Hgb 11.4 L, Hct 32.9 L, MCV 84.8, MCH 29.4, MCHC 34.7, RDW Std Deviation 40.9, RDW Coeff of Frieda 13.2, Plt Count 327, MPV 9.7, Immature Gran % (Auto) 0.300, Neut % (Auto) 69.4, Lymph % (Auto) 18.0 L, [place] % (Auto) 11.3 H, Eos % (Auto) 0.9, Baso % (Auto) 0.1, Absolute Neuts (auto) 4.8, Absolute Lymphs (auto) 1.24, Nucleated RBC % 0, Sodium 129 L, Potassium 3.5, Chloride 98, Carbon Dioxide 24.0, Anion Gap 7, BUN 5 L, Creatinine 0.48 L, Estim Creat Clear Calc 118.30, Est GFR (MDRD) Af Amer 233, Est GFR (MDRD) Non-Af 192, BUN/Creatinine Ratio 10.4, Glucose 111 H, Calcium 6.6 L Microbiology: Microbiology 09/20/23 19:45 Urine Catheter - Bowman Urine Culture - Final Escherichia coli Proteus mirabilis 09/20/23 19:29 Nasal Secretion SARS-CoV-2 Antigen (Rapid) - Final SARS-CoV-2 (COVID 19) D/C Instructions Discharge Diet: Light diet - advance as tolerated ( Soft diet easy to chew, protein rich diet.) and - Weight Bearing Status: Partial weight bearing Call your doctor if you observe: Fever of 101 or Higher, Coldness, Increased Pain, Numbness or Tingling, Change in Color, Inability to urinate, Inability to have a bowel movement, Shortness of breath, Dizziness, Fainting spells, Swelling in the ankles, Chest pain, Prolonged hiccupping, Increased palpitations (irregular heartbeat) and Calf discomfort When: IN 2 WEEKS Meaningful Use Info Meaningful Use Diagnoses (Choose all that apply): None applicable Discharge Plan Admission Admit Date/Time: 09/20/23 21:57 Attending Provider: London Braden Primary Care Provider: Lyndon Sanders Consulting Providers: Gavino Pena; Richard Palacio Instructions Additional Instructions / Restrictions: Follow-up in [facility] urologist for kidney stones Discharge Orders/Prescriptions Prescriptions: New bisacodyl 10 mg Suppository 10 mg WV DAILY PRN (Reason: Constipation) Qty: 0 0RF ciprofloxacin HCl 500 mg tablet 500 mg PO BID Qty: 10 0RF Continued baclofen 5 MG tablet 5 mg PO TID Patient Comments: Hold for sedation/lethargy Linzess 290 mcg capsule 290 mcg PO DAILY omeprazole 20 mg capsule,delayed release(DR/EC) 20 mg PO DAILY Motegrity 2 mg tablet 2 mg PO DAILY tamsulosin 0.4 mg Capsule 0.4 mg PO 1730 metoclopramide HCl [Reglan] 5 mg tablet 5 mg PO Q6H PRN (Reason: nausea and vomiting) Referrals / Follow Up: Chang Grant MD [Med Staff - Active Staff] - Within 1 Month (for recurrent ileus) Lyndon Sanders MD [Primary Care Provider] - Within 2 Weeks Disposition Disposition (needs filled in before D/C Order can be placed): Home Health Service Charges/Coding Visit Charges Inpatient E&M: 44120 Disch Hosp >30min
--- NOTE | 2023-09-22 13:25 | CASEMGMT ---
RN ANGELITO called sister for initial transition planning/care coordination assessment as she is patient's caregiver. RN ANGELITO introduced self and role at [facility]. Sister, Lesli, willing to participate in assessment and is able to answer all questions appropriately. Care providers, pharmacy, and demographics verified. Sister wishes for patient to discharge home with resumption of HHC with [facility]. Sister states she has no further needs or concerns at this time. CM to follow for discharge planning needs that may arise. PCP: Tommy Specialists: Kimberlyn Neurologist; Urologist [facility] Preferred [facility]acy[facility] Insurance: [employer] Prescription Benefit: yes Living Will/HPOA: yes, sister Lesli Bansal LNOK: sisters Living Arrangements: Patient lives in a 2 story home with first floor setup. Sisters rotate taking care of patient and preforming ADLs. Transportation: sister DME/HHC: Patient has BSC, raised toilet, cane, walker, crutches, wheelchair, and grab bars at home. No previous SNF. Patient is active with [facility] Disposition Plan: Patietn to discharge home with resumption of HHC, family support, and follow-up plans in place. Anita FIELDS, RN, CM
[2023-09-22 14:23] VITALS: BP 126/82; PULSE 91; RESP 16; TEMP 36.1
--- NOTE | 2023-09-22 15:13 | PHA.DC_ITS ---
Pharmacy [facility] Reconciliation Pharmacy Service has performed discharge medication reconciliation for this patient. The patient's discharge medication list was reviewed for discrepancies and discrepancies were resolved. Medications at Discharge Home Medications baclofen 5 mg tablet 5 mg PO TID MUSCLE SPASMS 07/21/22 linaclotide 290 mcg capsule (Linzess) 290 mcg PO DAILY IRRITABLE BOWELS 08/09/23 omeprazole 20 mg capsule,delayed release 20 mg PO DAILY ACID REFLUX 08/09/23 prucalopride 2 mg tablet (Motegrity) 2 mg PO DAILY CHRONIC CONSTIPATION 08/09/23 tamsulosin 0.4 mg capsule 0.4 mg PO 1730 PROSTATE 08/09/23 metoclopramide HCl 5 mg tablet (Reglan) 5 mg PO Q6H PRN nausea and vomiting 09/20/23 bisacodyl 10 mg rectal suppository 10 mg ME DAILY PRN Constipation #0 ea 09/22/23 ciprofloxacin HCl 500 mg tablet 500 mg PO BID #10 tabs 09/22/23
== END 2023-09-22 14:48 | disposition home health service (06) | DRG 698 ==
LOC: ED 20:41 → PCU 22:41
PROVIDERS: Admitting Provider Internal Medicine; Emergency Provider Emergency Medicine; PCP Family Medicine; Visit Provider Internal Medicine
DX: T83.511A Infection and inflammatory reaction due to indwelling urethral catheter, initial encounter (principal); Q03.8 Other congenital hydrocephalus; G40.909 Epilepsy, unspecified, not intractable, without status epilepticus; U07.1 COVID-19; E87.1 Hypo-osmolality and hyponatremia; N30.00 Acute cystitis without hematuria; I10 Essential (primary) hypertension; Y73.8 Miscellaneous gastroenterology and urology devices associated with adverse incidents, not elsewhere classified; N40.1 Benign prostatic hyperplasia with lower urinary tract symptoms; R33.8 Other retention of urine; B96.20 Unspecified Escherichia coli [E. coli] as the cause of diseases classified elsewhere; B96.4 Proteus (mirabilis) (morganii) as the cause of diseases classified elsewhere; Z98.2 Presence of cerebrospinal fluid drainage device; Z79.899 Other long term (current) drug therapy; Z87.19 Personal history of other diseases of the digestive system; Z87.442 Personal history of urinary calculi; Z87.448 Personal history of other diseases of urinary system
CPT/HCPCS: 36415; 71045; 80048; 80053; 81001; 83605; 85025; 85610; 85730; 87040; 87077; 87086; 87088; 87186; 87811; 92610; 93005; 96361; 96365; 96366; 96372; 97802; 99221; 99285; J7030; A4216; G0378

== ENCOUNTER 2023-11-01 18:51 | Emergency (ER) | payer MEDICARE, MEDICAID, SELFPAY ==
[2023-11-01 18:53] VITALS: BP 166/107; PULSE 93; RESP 18; TEMP 36.5; O2SAT 100
--- NOTE | 2023-11-01 19:06 | EDS_ITS ---
HPI History of Present Illness Chief Complaint: Bowman C/O Informant: patient and family Narrative Narrative: Chronic Bowman catheter per sister decreased urine output since 2:30 PM. Normal emptying at that time of 450 cc. She tried to flush 4pm and felt resistance. Stated since then he feels more pressure. No fevers. Last Bowman change 12 days ago by home health nurse. Prior similar symptoms: Yes PFSH PFSH Medical History Acute hyponatremia Bladder diverticulum Bladder stones BPH (benign prostatic hyperplasia) Catheter-associated urinary tract infection Chronic hyponatremia Chronic indwelling Bowman catheter Chronic indwelling Bowman catheter Chronic intestinal pseudo-obstruction Complicated UTI (urinary tract infection) COVID-19 Gastroparesis History of urinary retention Hydrocephalus Hydrocephalus Hypertension Hyponatremia Hyponatremia Ileus Inguinal hernia Normal pressure hydrocephalus Seizures Home Medications baclofen 5 mg tablet 5 mg PO TID MUSCLE SPASMS 07/21/22 [History Last Taken 02/20/23] linaclotide 290 mcg capsule (Linzess) 290 mcg PO DAILY IRRITABLE BOWELS 08/09/23 [History Last Taken Unknown] omeprazole 20 mg capsule,delayed release 20 mg PO DAILY ACID REFLUX 08/09/23 [History Last Taken Unknown] prucalopride 2 mg tablet (Motegrity) 2 mg PO DAILY CHRONIC CONSTIPATION 08/09/23 [History Last Taken Unknown] tamsulosin 0.4 mg capsule 0.4 mg PO 1730 PROSTATE 08/09/23 [History Last Taken Unknown] metoclopramide HCl 5 mg tablet (Reglan) 5 mg PO Q6H PRN nausea and vomiting 09/20/23 [History Last Taken Unknown] bisacodyl 10 mg rectal suppository 10 mg CA DAILY PRN Constipation #0 ea 09/22/23 [Rx Last Taken Unknown] ciprofloxacin HCl 500 mg tablet 500 mg PO BID #10 tabs 09/22/23 [Rx Last Taken Unknown] cefuroxime axetil 500 mg tablet 500 mg PO BID #13 tabs 11/01/23 [Rx Last Taken Unknown] Allergy/AdvReac Type Severity Reaction Status Date / Time Iodinated Contrast Media Allergy Anaphylaxis Verified 11/01/23 18:53 [Iodinated Contrast Media - IV Dye] nitrofurantoin AdvReac Upset Verified 11/01/23 18:53 Stomach Family History Father Heart disease Kidney stones Prostate disease Brother Kidney stones Other Cancer Peptic ulcer disease Surgical History S/P release of urethral stricture S/P [employer] shunt [employer] (ventriculoperitoneal) shunt status Social History household members: family Smoking Status: Never smoker alcohol intake: never substance use type: does not use ROS ROS ED Constitutional Constitutional ED: Denies chills, fever(s) or sweats Eyes Eyes: Denies change in vision ENT ENT ED: Denies dysphagia or sore throat Cardiovascular Cardiovascular: Denies chest pain, leg edema, palpitations or racing heartbeat Respiratory/Chest Respiratory/Chest: Denies cough, dyspnea or dyspnea on exertion Gastrointestinal Gastrointestinal: Denies abdominal pain, diarrhea, nausea or vomiting Genitourinary Genitourinary ED: Reports other Details: Decreased Bowman output ; Denies dysuria, hematuria or urinary frequency Musculoskeletal Musculoskeletal: Denies back pain, extremity pain or neck pain Integumentary Denies rash or wounds Neurologic Neurologic: Denies headache(s), paresthesias or weakness EXAM Physical Exam Const Vital Signs: 11/01/23 18:53 11/01/23 21:41 Temperature 97.7 F L Temperature Source Temporal Pulse Rate 93 Respiratory Rate 18 Blood Pressure 166/107 H Blood Pressure Mean 126 Pulse Ox 100 Oxygen Delivery Method Room Air Room Air Positive well nourished and well developed General Appearance ED: well developed and NAD HEENT Reports moist mucous membranes normocephalic and atraumatic Eyes EOMs intact bilaterally and conjunctivae normal General Eye ED: Yes normal appearance of both eyes Neck no lymphadenopathy and supple General: Negative for tenderness Chest Wall Chest: Negative for tenderness Resp normal respiratory effort and normal air movement Effort and Inspection: symmetric chest movement; Negative for respiratory distress Cardio regular rate, regular rhythm and no murmurs Peripheral Pulses: pulses 2+ throughout GI normal to inspection, nondistended, normoactive bowel sounds GI Narrative: No significant distention suprapubic, no rebound or guarding. Palpation: Negative for guarding or rebound tenderness present Narrative: Bowman catheter yellow urine mild, reported 3 hours ago this was emptied however only 20 cc urine output. Back/Spine no CVA tenderness and no thoracic nor lumbar tenderness Extremity Extremity Narrative: Atrophy lower extremities General Extremety ED: Negative for edema or tenderness General Extremity: Negative for edema Neuro oriented x3 and no sensory deficits noted Sensorium / Orientation: awake and alert MDM MDM MDM Narrative Medical decision making narrative: Interventions / MDM: Differential diagnosis: Bowman dysfunction, UTI Diagnosis considered but do not suspect: No clinical sepsis My EKG interpretation: N/A Imaging independently reviewed and interpreted by myself: N/A External documents reviewed: N/A Test considered but not ordered:N/A ED course: Patient nontoxic minimal urine output, he had nondistended abdomen. Bladder scans per nursing states 100 cc. However they tried to flush no resistance. Therefore this was swapped out. He had immediate urine output up to 400 cc reported cloudy. This was sent to the lab along with cultures, notes signs of infection. He is covered with cefuroxime. He is nontoxic. He felt better with bladder drainage and Bowman output. Outpatient follow-up. All questions were answered. Re-evaluation: stable Disposition discussed with patient/family/significant other: Patient and sister Case discussed with consulting clinician: N/A This note was generated with Seahorse dictation software. It may contain incorrect words, spelling, and punctuation that were not noted in checking the note before signing. Lab Data Attestation: I reviewed the patient's lab results. Labs: Laboratory Results - last 24 hr 11/01/23 20:08 Urine Color Yellow Urine Clarity Cloudy Urine pH 8.0 Ur Specific [place] 1.015 Urine Protein 100 H Urine Glucose (UA) Normal Urine Ketones Negative Urine Occult Blood 150 H Urine Nitrite Positive H Urine Bilirubin Negative Urine Urobilinogen Normal Ur Leukocyte Esterase 500 H Urine RBC 5-10 SEEN Urine WBC >100 SEEN Ur Squamous Epith Cells 0 SEEN Triple Phos Crystals RARE Amorphous Sediment 1+ Urine Bacteria 3+ Urine Mucus 0 SEEN Discharge Plan Triage Chief Complaint: Bowman C/O ED Provider: Abelardo Albarran Dx/Rx/DC Orders Clinical Impression: Bowman catheter problem, Chronic indwelling Bowman catheter, Acute UTI Instructions: Urinary Tract Infections in Men, ED Bowman Catheter, Care Prescriptions: New cefuroxime axetil 500 mg tablet 500 mg PO BID Qty: 13 0RF No Action baclofen 5 MG tablet 5 mg PO TID Patient Comments: Hold for sedation/lethargy Linzess 290 mcg capsule 290 mcg PO DAILY omeprazole 20 mg capsule,delayed release(DR/EC) 20 mg PO DAILY Motegrity 2 mg tablet 2 mg PO DAILY tamsulosin 0.4 mg Capsule 0.4 mg PO 1730 metoclopramide HCl [Reglan] 5 mg tablet 5 mg PO Q6H PRN (Reason: nausea and vomiting) bisacodyl 10 mg Suppository 10 mg CA DAILY PRN (Reason: Constipation) Qty: 0 0RF ciprofloxacin HCl 500 mg tablet 500 mg PO BID Qty: 10 0RF Primary Care Provider: Lyndon Sanders Referrals: Lyndon Sanders MD [Primary Care Provider] - 1 Week Disposition Disposition: Home, Self Care Discharge Date/Time: 11/01/23 21:41
[2023-11-01 20:14] LABS: Mucous, Urine 0 SEEN /hpf (<or=2+); Squamous Epithelial Cells - UA 0 SEEN /hpf (0-5)
[2023-11-01 20:16] LABS: Color, Urine Yellow (Yellow); Glucose, Dipstick Normal (Normal); Ketone-Dipstick Negative (Negative); Leukocyte Esterase-Dipstick 500 /ul (Negative); Nitrite-Dipstick Positive (Negative); Occult Blood-Urine 150 /ul (Negative); Protein-Dipstick 100 mg/dl (Negative); Specific Gravity, Urine 1.015 (1.002-1.030); Urine Bilirubin Dipstick Negative (Negative); Urine Clarity Cloudy (Clear); Urine Urobilinogen Normal (Normal)
[2023-11-01 20:24] LABS: White Blood Cells >100 SEEN /hpf (0-5)
[2023-11-01 20:25] LABS: Bacteria 3+ /hpf (None Seen); Red Blood Cells-Urine 5-10 SEEN /hpf (0-5)
[2023-11-01 20:26] LABS: Amorphous Sediment 1+; Triple Phosphate Crystals Ur RARE /hpf (<or=1+)
[2023-11-01] MEDS: cefuroxime axetiL 250 MG TABLET 500 MG PO (21:31)
== END 2023-11-01 21:41 | disposition home or self-care (01) ==
PROVIDERS: Emergency Provider Emergency Medicine; PCP Family Medicine; Visit Provider Emergency Medicine
DX: T83.89XA Other specified complication of genitourinary prosthetic devices, implants and grafts, initial encounter (principal); N39.0 Urinary tract infection, site not specified; X58.XXXA Exposure to other specified factors, initial encounter; Z86.16 Personal history of COVID-19
CPT/HCPCS: 81001; 87077; 87086; 87088; 87186; 99282

== ENCOUNTER 2023-11-28 14:19 | Emergency (ER) | payer MEDICARE, MEDICAID, SELFPAY ==
[2023-11-28 14:20] VITALS: BP 118/80; PULSE 110; RESP 18; TEMP 37.2; O2SAT 96
[2023-11-28 16:23] VITALS: TEMP 36.9
--- NOTE | 2023-11-28 17:44 | CT_ITS ---
STUDY: CT ABDOMEN AND PELVIS WITHOUT CONTRAST REASON FOR EXAM: Male, 58 years old. abdominal pain RADIATION DOSAGE (If Supplied By Facility): CTDIvol = ( 6.72 ) mGy, DLP = ( 394.42 ) mGycm TECHNIQUE: Transaxial images were obtained from the dome of the diaphragm to the symphysis pubis without oral contrast, and without intravenous contrast. Sagittal and coronal images were reconstructed. Individualized dose optimization techniques were used for this CT. COMPARISON: August 09, 2023. FINDINGS: The visualized lung bases are unremarkable. The visualized portions of the heart are within normal limits. Normal liver. Normal gallbladder and extrahepatic biliary system. Normal spleen. Normal pancreas. Normal bilateral adrenal glands. Normal right kidney. 5 mm stone in the left kidney. 2.2 cm left renal cyst Normal visualized stomach. Normal small intestine. Fecal retention and gaseous distention in the colon. The appendix is not visualized. Normal abdominal aorta. Normal inferior vena cava. Normal retroperitoneum. There is a shunt catheter extending into the pelvis. [place] catheter in the urinary bladder with diffuse wall thickening and diverticuli bilaterally containing calculi. There is a left inguinal hernia partially containing the left-sided urinary bladder diverticulum with calculus and mild intraluminal gas. Normal abdominal wall. Old deformity of the left hip. CT/Abdomen/Pelvis without Cont IMPRESSION: Nonobstructive left renal stone and cyst. Fecal retention and gaseous distention in the colon. There is a shunt catheter extending into the pelvis. Bowman catheter in the urinary bladder with diffuse wall thickening and diverticuli bilaterally containing calculi. There is a left inguinal hernia partially containing the left-sided urinary bladder diverticulum with calculus and mild intraluminal gas. Old left hip deformity. Electronically Signed: Raphael Spaulding DO at 19:01 EST Reading Location ID and State: [facility] / [place] Tel [phone], Service support ,
--- NOTE | 2023-11-28 17:45 | EDS_ITS ---
HPI History of Present Illness Chief Complaint: Abd Pain PFSH PFS Medical History Acute hyponatremia Bladder diverticulum Bladder stones BPH (benign prostatic hyperplasia) Catheter-associated urinary tract infection Chronic hyponatremia Chronic indwelling Bowman catheter Chronic indwelling Bowman catheter Chronic intestinal pseudo-obstruction Complicated UTI (urinary tract infection) COVID-19 Gastroparesis History of urinary retention Hydrocephalus Hydrocephalus Hypertension Hyponatremia Hyponatremia Ileus Inguinal hernia Normal pressure hydrocephalus Seizures Home Medications baclofen 5 mg tablet 5 mg PO TID MUSCLE SPASMS 07/21/22 [History Last Taken 02/20/23] linaclotide 290 mcg capsule (Linzess) 290 mcg PO DAILY IRRITABLE BOWELS 08/09/23 [History Last Taken Unknown] omeprazole 20 mg capsule,delayed release 20 mg PO DAILY ACID REFLUX 08/09/23 [History Last Taken Unknown] prucalopride 2 mg tablet (Motegrity) 2 mg PO DAILY CHRONIC CONSTIPATION 08/09/23 [History Last Taken Unknown] tamsulosin 0.4 mg capsule 0.4 mg PO 1730 PROSTATE 08/09/23 [History Last Taken Unknown] metoclopramide HCl 5 mg tablet (Reglan) 5 mg PO Q6H PRN nausea and vomiting 09/20/23 [History Last Taken Unknown] bisacodyl 10 mg rectal suppository 10 mg IA DAILY PRN Constipation #0 ea 09/22/23 [Rx Last Taken Unknown] ciprofloxacin HCl 500 mg tablet 500 mg PO BID #10 tabs 09/22/23 [Rx Last Taken Unknown] cefuroxime axetil 500 mg tablet 500 mg PO BID #13 tabs 11/01/23 [Rx Last Taken Unknown] Allergy/AdvReac Type Severity Reaction Status Date / Time Iodinated Contrast Media Allergy Anaphylaxis Verified 11/28/23 16:24 [Iodinated Contrast Media - IV Dye] nitrofurantoin AdvReac Upset Verified 11/28/23 16:24 Stomach Family History Father Heart disease Kidney stones Prostate disease Brother Kidney stones Other Cancer Peptic ulcer disease Surgical History S/P release of urethral stricture 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 I agree with his/her statements and above findings. I have personally performed a face to face assessment of the patient and have reviewed the JAY Note. I performed a substantive portion of the visit including all aspects of the following. I personally saw the patient performed chart review, physical exam, reviewed labs, imaging (if obtained), and formulated a treatment and management plan. Brief history: 58-year-old male here for abdominal pain. Exam: Nursing triage notes reviewed, Vital signs reviewed Constitutional: please see mdm Abdomen: Distention, diffuse tenderness MDM/plan: Chief Complaint: Abdominal pain External records reviewed: hospitalized in February 2023 for ileus Factors affecting care: Ileus, small bowel obstruction, hydrocephalus status post RAG ROOM SUPERVISOR shunt Social determinants of health: Developmental disability MDM narrative: Patient was initially tachycardic otherwise hemodynamically stable he is afebrile and nontoxic-appearing. Abdomen was diffusely tender concern for small bowel obstruction, perforation, UTI amongst other etiologies Will perform a broad lab and imaging workup to further elucidate etiology patient complaints. Will dispo based on results of imaging, repeat exam, labs, show decision making. Shared decision making: I will have a discussion with the patient and or visitors regarding risk/benefits of further testing or admission. They will be made aware of of the risk/benefits inherent in this decision they will be given the opportunity to voice understanding. Discharge Plan Triage Chief Complaint: Abd Pain ED Midlevel Provider: Kassy Gray ED Provider: Reji Woods Dx/Rx/DC Orders Prescriptions: No Action baclofen 5 MG tablet 5 mg PO TID Patient Comments: Hold for sedation/lethargy Linzess 290 mcg capsule 290 mcg PO DAILY omeprazole 20 mg capsule,delayed release(DR/EC) 20 mg PO DAILY Motegrity 2 mg tablet 2 mg PO DAILY tamsulosin 0.4 mg Capsule 0.4 mg PO 1730 cefuroxime axetil 500 mg tablet 500 mg PO BID Qty: 13 0RF metoclopramide HCl [Reglan] 5 mg tablet 5 mg PO Q6H PRN (Reason: nausea and vomiting) bisacodyl 10 mg Suppository 10 mg IA DAILY PRN (Reason: Constipation) Qty: 0 0RF ciprofloxacin HCl 500 mg tablet 500 mg PO BID Qty: 10 0RF Primary Care Provider: Lyndon Sanders Referrals: Lyndon Sanders MD [Primary Care Provider] - Capacity Legal Wrapper Layer And Examiner Soft Work Reflex Medical hold order details:: IF a medical hold is selected below, a suggested order for a MEDICAL HOLD will reflex upon signing the document. Next of kin: [place] law dictates a PRIORITY LIST for identifying legal decision-maker/legal next of kin in the following order (LNOK): 1st: The patient?s legal guardian, if any 2nd: The patient's spouse (if status is questionable, consult Risk Management) 3rd: The patient?s adult child(grant) (majority, if multiple children) 4th: The patient?s parents 5th: The patient?s adult siblings (majority, if multiple children siblings)
--- NOTE | 2023-11-28 17:54 | EDS_ITS ---
HPI <JESUS Loaiza - Last Filed: 11/28/23 19:58> History of Present Illness Chief Complaint: Abd Pain Narrative Narrative: 58-year-old male has history of CARDIOLOGY MANAGER shunt, disability, bowel obstructions, indwelling Bowman catheter. He was brought in by his sister who is one of his caregivers because this morning he had shaking and chills. She checked his axillary temperature and it was 104F and gave Tylenol at 10 AM. He had p.o. intake earlier but this afternoon vomited x 2. She administers suppositories twice daily and enemas as needed so he has a daily BM. He had a normal BM yesterday but today only still amount of liquid stool. She is concerned he c ould be developing a bowel obstruction. He has had this multiple times in the past and they were always managed medically. No history of abdominal surgeries. His indwelling Bowman catheter was changed today by visiting nurse and is draining well. [facility] <JESUS Loaiza - Last Filed: 11/28/23 19:58> [facility] Medical History Acute hyponatremia Bladder diverticulum Bladder stones BPH (benign prostatic hyperplasia) Catheter-associated urinary tract infection Chronic hyponatremia Chronic indwelling Bowman catheter Chronic indwelling Bowman catheter Chronic intestinal pseudo-obstruction Complicated UTI (urinary tract infection) COVID-19 Gastroparesis History of urinary retention Hydrocephalus Hydrocephalus Hypertension Hyponatremia Hyponatremia Ileus Inguinal hernia Normal pressure hydrocephalus Seizures Home Medications baclofen 5 mg tablet 5 mg PO TID MUSCLE SPASMS 07/21/22 [History Last Taken 02/20/23] linaclotide 290 mcg capsule (Linzess) 290 mcg PO DAILY IRRITABLE BOWELS 08/09/23 [History Last Taken Unknown] omeprazole 20 mg capsule,delayed release 20 mg PO DAILY ACID REFLUX 08/09/23 [History Last Taken Unknown] prucalopride 2 mg tablet (Motegrity) 2 mg PO DAILY CHRONIC CONSTIPATION 08/09/23 [History Last Taken Unknown] tamsulosin 0.4 mg capsule 0.4 mg PO 1730 PROSTATE 08/09/23 [History Last Taken Unknown] metoclopramide HCl 5 mg tablet (Reglan) 5 mg PO Q6H PRN nausea and vomiting 09/20/23 [History Last Taken Unknown] bisacodyl 10 mg rectal suppository 10 mg DC DAILY PRN Constipation #0 ea 09/22/23 [Rx Last Taken Unknown] ciprofloxacin HCl 500 mg tablet 500 mg PO BID #10 tabs 09/22/23 [Rx Last Taken Unknown] cefuroxime axetil 500 mg tablet 500 mg PO BID #13 tabs 11/01/23 [Rx Last Taken Unknown] cephalexin 500 mg capsule 500 mg PO Q6 7 days #28 CAPSULES 11/28/23 [Rx Last Taken Unknown] Allergy/AdvReac Type Severity Reaction Status Date / Time Iodinated Contrast Media Allergy Anaphylaxis Verified 11/28/23 16:24 [Iodinated Contrast Media - IV Dye] nitrofurantoin AdvReac Upset Verified 11/28/23 16:24 Stomach Family History Father Heart disease Kidney stones Prostate disease Brother Kidney stones Other Cancer Peptic ulcer disease Surgical History S/P release of urethral stricture S/P CARDIOLOGY MANAGER shunt CARDIOLOGY MANAGER (ventriculoperitoneal) shunt status Social History household members: family Smoking Status: Never smoker alcohol intake: never substance use type: does not use ROS <JESUS Loaiza - Last Filed: 11/28/23 19:58> ROS ED ROS Narrative Constitutional: Positive for fever. Respiratory: Negative for shortness of breath, cough. GI: Positive for vomiting. Skin: Negative for rash, wound. EXAM <JESUS Loaiza - Last Filed: 11/28/23 19:58> Physical Exam Narrative Exam Narrative: CONST: Male laying in bed in no distress. EYES: Normal inspection. ENT: Normal inspection, moist mucous membranes. NECK: Normal inspection. RESP: No respiratory distress, CTAB. CVS: Regular rate and rhythm, no murmur, no gallop. ABD: Soft and nontender, no guarding or rebound, mildly distended. SKIN: Color normal, no rash, warm, dry, intact. EXTREMITIES: Normal appearance, no pedal edema. NEURO: Awake and alert. Intellectual disability, extremity contractures/atrophy. PSYCH: Normal affect. Const Vital Signs: 11/28/23 14:20 11/28/23 16:23 11/28/23 19:35 Temperature 99.0 F 98.5 F Temperature Source Temporal Oral Pulse Rate 110 H 97 Respiratory Rate 18 Blood Pressure 118/80 Blood Pressure Mean 92 Pulse Ox 96 Oxygen Delivery Method Room Air <Dr. Reji Woods DO - Last Filed: 11/28/23 23:48> Physical Exam Const Vital Signs: 11/28/23 14:20 11/28/23 16:23 11/28/23 19:35 Temperature 99.0 F 98.5 F Temperature Source Temporal Oral Pulse Rate 110 H 97 Respiratory Rate 18 Blood Pressure 118/80 Blood Pressure Mean 92 Pulse Ox 96 Oxygen Delivery Method Room Air MDM <JESUS Loaiza - Last Filed: 11/28/23 19:58> MDM MDM Narrative Medical decision making narrative: History gathered from: Patient's sister, caregiver Patient developed a fever this morning and vomiting x 2 and had loss of a bowel movement. Sister is concerned he is either developing an infection or bowel obstruction. He is awake alert in no distress. HR is 110 with otherwise normal vital signs. He is afebrile last dose of Tylenol was at 10 AM. Normal heart and lung sounds. Abdomen soft and nontender with normal bowel sounds. Sepsis workup ordered?WBC is 20.5, lactate 2.0. Hyponatremia at 129 is chronic. Normal renal function. COVID/flu/RSV swab is negative. CT abdomen/pelvis scan shows no acute findings?there is fecal retention and gas in the colon but no obstruction. The Bowman catheter is in the bladder which has diffuse wall thickening. UA appears infected and while this may be colonization with his new leukocytosis I sent a culture and treated with Rocephin. I discussed the case with his sister who is his caregiver and offered admission but she would like to go home and is comfortable administering oral antibiotics. Plan is after medication administration to make sure his heart rate has improved. I sent Keflex QID to his pharmacy and discussed to come back if any symptoms worsen. He was discharged in stable condition. Lab Data Attestation: I reviewed the patient's lab results. Labs: Laboratory Results - last 24 hr 11/28/23 11/28/23 17:50 17:55 WBC 20.5 H RBC 4.89 Hgb 13.8 Hct 42.1 MCV 86.1 MCH 28.2 MCHC 32.8 RDW Std Deviation 43.0 RDW Coeff of Frieda 13.6 Plt Count 406 MPV 9.3 Immature Gran % (Auto) 0.800 Neut % (Auto) 91.2 H Lymph % (Auto) 2.5 L Frio % (Auto) 5.3 Eos % (Auto) 0.0 Baso % (Auto) 0.2 Absolute Neuts (auto) 18.7 H Absolute Lymphs (auto) 0.51 L Nucleated RBC % 0 Differential Comment SCANNED Sodium 129 L Potassium 4.1 Chloride 94 L Carbon Dioxide 26.0 Anion Gap 9 BUN 15 Creatinine 0.84 Est GFR (MDRD) Af Amer 121 Est GFR (MDRD) Non-Af 100 BUN/Creatinine Ratio 17.8 Glucose 109 H Lactic Acid 2.0 Calcium 8.6 Total Bilirubin 0.90 AST 25 ALT 28 Alkaline Phosphatase 74 Total Protein 7.6 Albumin 3.3 Globulin 4.3 H Albumin/Globulin Ratio 0.8 L Lipase 17 Urine Color Yellow Urine Clarity Sl. Cloudy Urine pH 6.5 Ur Specific [place] 1.015 Urine Protein 100 H Urine Glucose (UA) Normal Urine Ketones Negative Urine Occult Blood 150 H Urine Nitrite Positive H Urine Bilirubin Negative Urine Urobilinogen 1 H Ur Leukocyte Esterase 500 H Urine RBC 25-50 SEEN Urine WBC >100 SEEN Ur Squamous Epith Cells 0-5 SEEN Amorphous Sediment 1+ URATE Urine Bacteria 2+ Urine Mucus 0 SEEN Radiography Diagnostic Testing: Clinical Impression(s) from Imaging Studies Abdomen/Pelvis CT 11/28/23 17:44 IMPRESSION: Nonobstructive left renal stone and cyst. Fecal retention and gaseous distention in the colon. There is a shunt catheter extending into the pelvis. Bowman catheter in the urinary bladder with diffuse wall thickening and diverticuli bilaterally containing calculi. There is a left inguinal hernia partially containing the left-sided urinary bladder diverticulum with calculus and mild intraluminal gas. Old left hip deformity. Electronically Signed: Raphael Spaulding DO at 19:01 EST Reading Location ID and State: [facility] / [place] Tel [phone], Service support , <Dr. Reji Woods DO - Last Filed: 11/28/23 23:48> [facility] Lab Data Labs: Laboratory Results - last 24 hr 11/28/23 11/28/23 17:50 17:55 WBC 20.5 H RBC 4.89 Hgb 13.8 Hct 42.1 MCV 86.1 MCH 28.2 MCHC 32.8 RDW Std Deviation 43.0 RDW Coeff of Frieda 13.6 Plt Count 406 MPV 9.3 Immature Gran % (Auto) 0.800 Neut % (Auto) 91.2 H Lymph % (Auto) 2.5 L Frio % (Auto) 5.3 Eos % (Auto) 0.0 Baso % (Auto) 0.2 Absolute Neuts (auto) 18.7 H Absolute Lymphs (auto) 0.51 L Nucleated RBC % 0 Differential Comment SCANNED Sodium 129 L Potassium 4.1 Chloride 94 L Carbon Dioxide 26.0 Anion Gap 9 BUN 15 Creatinine 0.84 Est GFR (MDRD) Af Amer 121 Est GFR (MDRD) Non-Af 100 BUN/Creatinine Ratio 17.8 Glucose 109 H Lactic Acid 2.0 Calcium 8.6 Total Bilirubin 0.90 AST 25 ALT 28 Alkaline Phosphatase 74 Total Protein 7.6 Albumin 3.3 Globulin 4.3 H Albumin/Globulin Ratio 0.8 L Lipase 17 Urine Color Yellow Urine Clarity Sl. Cloudy Urine pH 6.5 Ur Specific [place] 1.015 Urine Protein 100 H Urine Glucose (UA) Normal Urine Ketones Negative Urine Occult Blood 150 H Urine Nitrite Positive H Urine Bilirubin Negative Urine Urobilinogen 1 H Ur Leukocyte Esterase 500 H Urine RBC 25-50 SEEN Urine WBC >100 SEEN Ur Squamous Epith Cells 0-5 SEEN Amorphous Sediment 1+ URATE Urine Bacteria 2+ Urine Mucus 0 SEEN Radiography Diagnostic Testing: Clinical Impression(s) from Imaging Studies Abdomen/Pelvis CT 11/28/23 17:44 IMPRESSION: Nonobstructive left renal stone and cyst. Fecal retention and gaseous distention in the colon. There is a shunt catheter extending into the pelvis. Bowman catheter in the urinary bladder with diffuse wall thickening and diverticuli bilaterally containing calculi. There is a left inguinal hernia partially containing the left-sided urinary bladder diverticulum with calculus and mild intraluminal gas. Old left hip deformity. Electronically Signed: Raphael Spaulding DO at 19:01 EST Reading Location ID and State: [facility] / [place] Tel [phone], Service support , Treatment and Re-Evaluation :: ED attending note: I evaluated the patient in conjunction with the JAY. I agree with his/her statements and above findings. I have personally performed a face to face assessment of the patient and have reviewed the JAY Note. I performed a substantive portion of the visit including all aspects of the following. I personally saw the patient performed chart review, physical exam, reviewed labs, imaging (if obtained), and formulated a treatment and management plan. Brief history: 58-year-old male here for abdominal pain. Exam: Nursing triage notes reviewed, Vital signs reviewed Constitutional: please see mdm Abdomen: Distention, diffuse tenderness MDM/plan: Chief Complaint: Abdominal pain External records reviewed: hospitalized in February 2023 for ileus Factors affecting care: Ileus, small bowel obstruction, hydrocephalus status post CARDIOLOGY MANAGER shunt Social determinants of health: Developmental disability MDM narrative: Patient was initially tachycardic otherwise hemodynamically stable he is afebrile and nontoxic-appearing. Abdomen was diffusely tender concern for small bowel obstruction, perforation, UTI amongst other etiologies Will perform a broad lab and imaging workup to further elucidate etiology patient complaints. Will dispo based on results of imaging, repeat exam, labs, show decision making. Shared decision making: I will have a discussion with the patient and or visitors regarding risk/benefits of further testing or admission. They will be made aware of of the risk/benefits inherent in this decision they will be given the opportunity to voice understanding. Discharge Plan Triage Chief Complaint: Abd Pain ED Midlevel Provider: Kassy Gray ED Provider: Reji Woods Dx/Rx/DC Orders Clinical Impression: Acute UTI, Leukocytosis, Chronic constipation Instructions: ED Bladder Infection, Male (Adult) Prescriptions: New cephalexin 500 mg capsule 500 mg PO Q6 7 Days Qty: 28 0RF No Action baclofen 5 MG tablet 5 mg PO TID Patient Comments: Hold for sedation/lethargy Linzess 290 mcg capsule 290 mcg PO DAILY omeprazole 20 mg capsule,delayed release(DR/EC) 20 mg PO DAILY Motegrity 2 mg tablet 2 mg PO DAILY tamsulosin 0.4 mg Capsule 0.4 mg PO 1730 cefuroxime axetil 500 mg tablet 500 mg PO BID Qty: 13 0RF metoclopramide HCl [Reglan] 5 mg tablet 5 mg PO Q6H PRN (Reason: nausea and vomiting) bisacodyl 10 mg Suppository 10 mg DC DAILY PRN (Reason: Constipation) Qty: 0 0RF ciprofloxacin HCl 500 mg tablet 500 mg PO BID Qty: 10 0RF Primary Care Provider: Lyndon Sanders Referrals: Lyndon Sanders MD [Primary Care Provider] - Activity Restrictions/Additional Instructions: He was prescribed antibiotics for urinary tract infection to take 4 times daily. If symptoms worsen such as persistent fevers, vomiting and inability to take medications, come back to ER. Disposition Disposition: Home, Self Care Discharge Date/Time: 11/28/23 21:02 Capacity <JESUS Loaiza - Last Filed: 11/28/23 19:58> Legal Liquor Inspector Reflex Medical hold order details:: IF a medical hold is selected below, a suggested order for a MEDICAL HOLD will reflex upon signing the document. Next of kin: [place] law dictates a PRIORITY LIST for identifying legal decision-maker/legal next of kin in the following order (LNOK): 1st: The patient?s legal guardian, if any 2nd: The patient's spouse (if status is questionable, consult Risk Management) 3rd: The patient?s adult child(grant) (majority, if multiple children) 4th: The patient?s parents 5th: The patient?s adult siblings (majority, if multiple children siblings)
[2023-11-28 18:00] LABS: Mucous, Urine 0 SEEN /hpf (<or=2+)
[2023-11-28 18:05] LABS: Absolute Lymphocyte Count 0.51 X10^3/uL (0.83-4.51); Absolute Neutrophil Count 18.7 X10^3/uL (2.0-7.7); Basophil# 0.05 X10^3/uL; Basophil% 0.2 % (0-1); Hematocrit 42.1 % (40-54); Hemoglobin 13.8 g/dL (13.0-16.5); Lymphocyte # 0.51 X10^3/ul (0.83-4.51); Lymphocyte % 2.5 % (19-41); Mean Corp Hgb Conc 32.8 g/dL (32-36); Mean Corpuscular Hgb 28.2 pg (27.0-32.0); Mean Corpuscular Volume 86.1 fL (80-94); Mean Platelet Vol. 9.3 fl (6.2-12.0); Monocyte# 1.08 X10^3/uL; Monocyte% 5.3 % (0-10); NRBC Flagged by Analyzer 0 % (0-5); Neutrophil # 18.68 X10^3/uL (2.7-7.7); Neutrophil % 91.2 % (47-70); POSITIVE DIFFERENTIAL YES; Platelet Count 406 K/mm3 (150-450); RBC Distribution Width CV 13.6 % (11.6-14.6); Red Blood Count 4.89 M/mm3 (4.6-6.2); White Blood Count 20.5 K/mm3 (4.4-11.0)
[2023-11-28 18:06] LABS: Color, Urine Yellow (Yellow); Glucose, Dipstick Normal (Normal); Ketone-Dipstick Negative (Negative); Leukocyte Esterase-Dipstick 500 /ul (Negative); Nitrite-Dipstick Positive (Negative); Occult Blood-Urine 150 /ul (Negative); Protein-Dipstick 100 mg/dl (Negative); Specific Gravity, Urine 1.015 (1.002-1.030); Urine Bilirubin Dipstick Negative (Negative); Urine Clarity Sl. Cloudy (Clear); Urine Urobilinogen 1 mg/dl (Normal); Urine pH 6.5 (5.0 - 8.0)
[2023-11-28 18:10] LABS: Differential Indicated SCAN CRITERIA MET
[2023-11-28 18:13] LABS: Red Blood Cells-Urine 25-50 SEEN /hpf (0-5); Squamous Epithelial Cells - UA 0-5 SEEN /hpf (0-5); White Blood Cells >100 SEEN /hpf (0-5)
[2023-11-28 18:14] LABS: Amorphous Sediment 1+ URATE; Bacteria 2+ /hpf (None Seen)
[2023-11-28 18:28] LABS: ALB/GLOB Ratio 0.8 RATIO (0.9-2.4); AST(SGOT) 25 U/L (15-37); Alanine Aminotransfer ALT/SGPT 28 U/L (16-61); Albumin, Serum 3.3 g/dL (3.2-5.0); Alkaline Phosphatase 74 U/L (45-117); Anion Gap 9 (5-15); BUN 15 mg/dL (7-18); BUN/Creat Ratio 17.8 RATIO (10-20); Calcium,Total 8.6 mg/dL (8.5-10.1); Chloride 94 mmol/L (98-107); Creatinine, Serum 0.84 mg/dL (0.70-1.30); Differential Comment SCANNED; EST Glomerular Filtration Rate 100 mL/min (>60); Est Glom Filt Rate - Afr Amer 121 mL/min (>60); Globulin 4.3 g/dL (2.2-4.2); Glucose 109 mg/dL (74-106); Lipase 17 U/L (13-75); Potassium 4.1 mmol/L (3.5-5.1); Protein, Total 7.6 g/dL (6.4-8.2); Sodium Level 129 mmol/L (136-145)
[2023-11-28 19:35] VITALS: PULSE 97
[2023-11-28] MEDS: Ceftriaxone 1 GM/50 ML BAG IV (20:12)
[2023-11-28] MEDS: 0.9% Normal Saline (1000mL) 1,000 ML 999 ML IV (20:12)
[2023-11-28 21:58] LABS: Reflex Lactate? Y
== END 2023-11-28 21:02 | disposition home or self-care (01) ==
PROVIDERS: Physician Assistant; Emergency Provider Emergency Medicine; PCP Family Medicine; Visit Provider Emergency Medicine
DX: N39.0 Urinary tract infection, site not specified (principal); D72.829 Elevated white blood cell count, unspecified; K59.09 Other constipation; Z86.16 Personal history of COVID-19
CPT/HCPCS: 74176; 80053; 81001; 83605; 83690; 85025; 87040; 87077; 87086; 87088; 87149; 87186; 87631; 96365; 99284; J7030; A4216

== ENCOUNTER 2024-02-10 13:43 | Outpatient (RCR) | payer MEDICARE, MEDICAID, SELFPAY ==
[2024-01-23 11:54] LABS: Color, Urine Yellow (Yellow); Glucose, Dipstick Normal (Normal); Ketone-Dipstick Negative (Negative); Leukocyte Esterase-Dipstick 500 /ul (Negative); Nitrite-Dipstick Negative (Negative); Occult Blood-Urine 25 /ul (Negative); Protein-Dipstick 30 mg/dl (Negative); Urine Bilirubin Dipstick Negative (Negative); Urine Clarity Sl. Cloudy (Clear); Urine Urobilinogen Normal (Normal)
[2024-02-10 13:51] LABS: Color, Urine Yellow (Yellow); Glucose, Dipstick Normal (Normal); Ketone-Dipstick Negative (Negative); Leukocyte Esterase-Dipstick 500 /ul (Negative); Nitrite-Dipstick Positive (Negative); Occult Blood-Urine 250 /ul (Negative); Protein-Dipstick Negative (Negative); Specific Gravity, Urine 1.005 (1.002-1.030); Urine Bilirubin Dipstick Negative (Negative); Urine Clarity Sl. Cloudy (Clear); Urine Urobilinogen Normal (Normal)
== END 2024-02-11 18:00 | disposition home or self-care (01) ==
LOC: HHLAB 13:43
PROVIDERS: PCP Family Medicine; Visit Provider Family Medicine
DX: Z46.6 Encounter for fitting and adjustment of urinary device (principal); N40.1 Benign prostatic hyperplasia with lower urinary tract symptoms; R33.8 Other retention of urine; K59.89 Other specified functional intestinal disorders
CPT/HCPCS: 81002; 87077; 87086; 87088; 87186

== ENCOUNTER 2024-06-06 01:09 | Inpatient (IN) | payer MEDICARE, MEDICAID, SELFPAY ==
[2024-06-06] VITALS (20 sets, daily range): BP systolic 96–132; BP diastolic 65–92; PULSE 76–122; RESP 12–22; TEMP 36–37.4; O2SAT 92–99; BMI 21.5; BMI 20.7
--- NOTE | 2024-06-06 01:46 | CT_ITS ---
We are attempting to reach an attending provider to discuss findings. An addendum with communication details will be sent when the communication is complete. INDICATION: Pain EXAMINATION: CT ABDOMEN AND PELVIS WITHOUT CONTRAST - CT Abdomen And Pelvis W/O Contrast Injection TECHNIQUE: Helically acquired images were obtained of the abdomen and pelvis without oral or IV contrast. A radiation dose optimization technique was used for this scan. IV Contrast dosage and agent: None. Oral contrast: None. COMPARISON: CT November 28, 2023. FINDINGS: LOWER CHEST: Left basilar 1.1 cm cavitary lesion with layering fluid, axial image 11. No cardiomegaly or pericardial effusion. LIVER: Homogeneous. No focal mass. GALLBLADDER AND BILIARY TREE: No calcified gallstones. No gallbladder distension or wall edema. No intra- or extrahepatic biliary ductal dilation. PANCREAS: No focal cystic or solid mass. SPLEEN: Normal size without focal cystic or solid mass. ADRENAL GLANDS: No nodules. KIDNEYS AND URETERS: 5 mm nonobstructive left renal stone. No hydronephrosis or perinephric inflammation. Benign left renal cyst, no imaging follow-up required. Unremarkable ureters. Bowman catheter mostly decompressed the bladder with mild wall thickening and adjacent inflammatory stranding. . PERITONEUM: [Abdominal ventricular peritoneal shunt noted. No ascites or free air. No other fluid collection. BOWEL: Stomach is distended with fluid without wall thickening or surrounding inflammation. Diffuse small bowel distention up to 4 cm with transition to decompressed small bowel in the central abdomen, axial image 93 and coronal image 31. No colonic distention or wall thickening. Redundant sigmoid colon extends into the right upper quadrant. Appendix is not seen. No right lower quadrant inflammation to suggest appendicitis. LYMPH NODES: No enlarged mesenteric or retroperitoneal lymph nodes. VESSELS: Aorta is non-dilated. ABDOMINAL WALL: Small fat-containing inguinal hernias, left greater than right. Within the left inguinal hernia there is a 1.9 cm curvilinear tube like device with surrounding air, unchanged from November 28, 2023 BONES: No lytic or blastic abnormality. Severe left hip osteoarthritis with femoral acetabular remodeling. Mild right hip osteoarthritis.. CT/Abdomen/Pelvis without Cont IMPRESSION: Mid small bowel bowel obstruction with transition to decompressed bowel in the central abdomen. No evidence of perforation. Bladder partially decompressed by Bowman catheter with mild wall thickening adjacent inflammation. Correlate with urine for evidence of cystitis. Nonobstructive left nephrolithiasis. Electronically Signed: Beck Mcgovern MD at 3:05 EDT ,
--- NOTE | 2024-06-06 01:47 | EDS_ITS ---
HPI HPI - GI History of Present Illness Chief Complaint: Abd Pain Detail of Chief Complaint: Abdominal pain Informant: patient Narrative Narrative: Patient presents with abdominal pain that started today. Patient went to bed and was heard by family member tsering [place]. Patient ended up vomiting x 2. Temperature was checked and was 100.8. Patient has history of frequent obstructions of the bowel. He has a ELEVATOR BUILDER shunt for history of hydrocephalus. Patient had a headache earlier in the day but not currently. Patient has an indwelling Bowman catheter. Last bowel movement was today. PFSH PFSH Medical History Acute hyponatremia Bladder diverticulum Bladder stones BPH (benign prostatic hyperplasia) Catheter-associated urinary tract infection Chronic hyponatremia Chronic indwelling Bowman catheter Chronic indwelling Bowman catheter Chronic intestinal pseudo-obstruction Complicated UTI (urinary tract infection) COVID-19 Gastroparesis History of urinary retention Hydrocephalus Hydrocephalus Hypertension Hyponatremia Hyponatremia Ileus Inguinal hernia Normal pressure hydrocephalus Seizures Home Medications ?Medication ?Instructions ?Recorded ?Last Taken ?Type baclofen 5 mg tablet 5 mg PO TID MUSCLE SPASMS 07/21/22 02/20/23 History linaclotide 290 mcg capsule 290 mcg PO DAILY IRRITABLE BOWELS 08/09/23 Unknown History (Linzess) prucalopride 2 mg tablet 2 mg PO DAILY CHRONIC CONSTIPATION 08/09/23 Unknown History (Motegrity) metoclopramide HCl 5 mg tablet 5 mg PO Q6H PRN nausea and vomiting 09/20/23 Unknown History (Reglan) bisacodyl 10 mg rectal suppository 10 mg NH DAILY PRN Constipation #0 09/22/23 Unknown Rx ea Allergy/AdvReac Type Severity Reaction Status Date / Time Iodinated Contrast Media Allergy Anaphylaxis Verified 06/06/24 01:10 (Iodinated Contrast Media - IV Dye) nitrofurantoin AdvReac Upset Verified 06/06/24 01:10 Stomach Family History Father Heart disease Kidney stones Prostate disease Brother Kidney stones Other Cancer Peptic ulcer disease Surgical History S/P release of urethral stricture S/P ELEVATOR BUILDER shunt ELEVATOR BUILDER (ventriculoperitoneal) shunt status Social History household members: family Smoking Status: Never smoker alcohol intake: never substance use type: does not use ROS ROS ED Review of Systems ROS Unobtainable: other Constitutional Constitutional ED: Reports lethargy; Denies chills, fever(s), sweats or weight loss Eyes Eyes: Denies blurry vision, change in vision or diplopia ENT ENT ED: Denies rhinorrhea or sore throat Cardiovascular Cardiovascular: Reports chest pain and racing heartbeat; Denies orthopnea Respiratory/Chest Respiratory/Chest: Denies cough, dyspnea, dyspnea on exertion, orthopnea or sputum Gastrointestinal Gastrointestinal: Reports abdominal pain, nausea and vomiting; Denies diarrhea Genitourinary Genitourinary ED: Denies dysuria, hematuria or urinary frequency Musculoskeletal Musculoskeletal: Denies arthralgias, back pain, myalgias or neck pain Integumentary Denies abscess, Abrasions or rash Neurologic Neurologic: Denies headache(s) or weakness Psychiatric Psychiatric: Denies anxiety, depression or suicidal thoughts Endocrine Endocrinology: Denies polydipsia, polyphagia or polyuria Hematologic/Lymphatic Hematologic/Lymphatic: Denies easy bleeding, easy bruising or lymphadenopathy Allergic/Immunologic Allergic/Immunologic ED: Denies mouth swelling, tongue swelling or urticaria EXAM Physical Exam Const Vital Signs: 06/06/24 01:10 06/06/24 02:25 06/06/24 03:25 Temperature 97 F L 98.4 F 98.7 F Temperature Source Temporal Oral Oral Pulse Rate 105 H 122 H 93 Respiratory Rate 17 22 H 16 Blood Pressure 130/92 H 132/80 H 96/66 Blood Pressure Mean 104 97 76 Pulse Ox 94 96 94 Oxygen Delivery Method Room Air Room Air Room Air 06/06/24 04:00 Temperature 98 F Temperature Source Oral Pulse Rate 99 Respiratory Rate 20 H Blood Pressure 124/79 H Blood Pressure Mean 94 Pulse Ox 94 Oxygen Delivery Method Room Air Positive well nourished and well developed General Appearance ED: well developed and NAD HEENT Reports TM's clear and moist mucous membranes normocephalic and atraumatic; Negative for trauma or tenderness Tympanic Membrane ED: Yes TM's clear Eyes PERRL and EOMs intact bilaterally General Eye ED: Negative for pale conjunctiva or scleral icterus Neck no lymphadenopathy, supple and no JVD General: Negative for tenderness Chest Wall inspection of chest normal and palpation of chest normal Chest: Negative for tenderness Resp normal respiratory effort and clear to auscultation bilaterally Effort and Inspection: Negative for respiratory distress or pain with movement Auscultation: Negative for rhonchi, wheezes or diminished lung sounds Cardio regular rate, regular rhythm, S1 normal heart sound, S2 normal heart sound and no murmurs Peripheral Pulses: pulses 2+ throughout GI normal to inspection, nondistended, normoactive bowel sounds, soft to palpation, non-distended and no masses GI Narrative: Mild diffuse tenderness. No rebound, rigidity, or peritoneal signs. No mass palpated. Back/Spine no CVA tenderness and no thoracic nor lumbar tenderness Extremity normal to inspection General Extremety ED: Negative for edema General Extremity: Negative for edema Neuro oriented x3, CN's II-XII intact bilaterally, no sensory deficits noted and gait normal Sensorium / Orientation: awake, alert, oriented to person, oriented to place and oriented to time Motor Exam: strength 5/5 throughout and strength abnormal Psych mental status grossly normal Skin no rashes or lesions noted and no wounds MDM MDM MDM Narrative Medical decision making narrative: Patient presents with abdominal pain and vomiting with history of bowel obstructions. Patient also has indwelling Bowman catheter. IV line established. CBC with differential obtained showed an elevated WBC count of 25,000. Chemistry showed a sodium of 121. Lactate normal at 1.2. LFTs unremarkable. Urinalysis positive for infection. Urine culture sent. Patient started on Rocephin [address] scan of the ab pelvis obtained showed a small bowel obstruction with transition point in the mid abdomen. Patient had a shunt series obtained that showed no evidence of break in the shunt. Patient was given Zofran on arrival. He was given normal saline. Discussed with patient's sister who is the caregiver. If patient would need surgery apparently they were told he would need to go up to the [facility] because of his shunt. I discussed case with [facility] surgeon on-call Dr. Chakraborty who accepted transfer of patient to their facility. They are not sure when they will have a bed available. We did place an NG tube to low intermittent suction. Lab Data Attestation: I reviewed the patient's lab results. Labs: Laboratory Results - last 24 hr 06/06/24 06/06/24 06/06/24 01:38 01:59 02:59 WBC 25.3 H RBC 5.06 Hgb 14.8 Hct 42.5 MCV 84.0 MCH 29.2 MCHC 34.8 RDW Std Deviation 39.6 RDW Coeff of [place] 12.9 Plt Count 368 MPV 10.1 Immature Gran % (Auto) 0.700 Neut % (Auto) 85.5 H Lymph % (Auto) 3.6 L [place] % (Auto) 9.9 Eos % (Auto) 0.0 Baso % (Auto) 0.3 Absolute Neuts (auto) 21.6 H Absolute Lymphs (auto) 0.91 Nucleated RBC % 0 Differential Comment SCANNED Diff Path Review May foll Sodium 121 L Potassium 3.6 Chloride 85 L Carbon Dioxide 25.0 Anion Gap 11 BUN 16 Creatinine 1.07 Estim Creat Clear Calc 60.08 Est GFR (MDRD) Af Amer 92 Est GFR (MDRD) Non-Af 76 BUN/Creatinine Ratio 15.0 Glucose 142 H Lactic Acid 1.2 Calcium 9.9 Total Bilirubin 1.50 H AST 14 L ALT 19 Alkaline Phosphatase 92 Total Protein 8.5 H Albumin 3.9 Globulin 4.6 H Albumin/Globulin Ratio 0.8 L Lipase 17 Urine Color Yellow Urine Clarity Cloudy Urine pH 5.0 Ur Specific [place] 1.025 Urine Protein 100 H Urine Glucose (UA) Normal Urine Ketones 5 H Urine Occult Blood 150 H Urine Nitrite Positive H Urine Bilirubin 1 H Urine Urobilinogen 1 H Ur Leukocyte Esterase 500 H Urine RBC 10-25 SEEN Urine WBC >100 SEEN Ur Squamous Epith Cells 5-10 SEEN Urine Bacteria 4+ Hyaline Casts 0-5 SEEN Fine Granular Casts 0-5 SEEN Urine Mucus 0 SEEN Radiography Diagnostic Testing: Clinical Impression(s) from Imaging Studies Abdomen/Pelvis CT 06/06/24 01:46 IMPRESSION: Mid small bowel bowel obstruction with transition to decompressed bowel in the central abdomen. No evidence of perforation. Bladder partially decompressed by Bowman catheter with mild wall thickening adjacent inflammation. Correlate with urine for evidence of cystitis. Nonobstructive left nephrolithiasis. Electronically Signed: Beck Mcgovern MD at 3:05 EDT Reading Location ID and State: [facility] / [place] Tel , Service support , ADDENDUM: 06/06/24 0314 IMPRESSION: Mid small bowel bowel obstruction with transition to decompressed bowel in the central abdomen. No evidence of perforation. Bladder partially decompressed by Bowman catheter with mild wall thickening adjacent inflammation. Correlate with urine for evidence of cystitis. Nonobstructive left nephrolithiasis. N.B. : The above Results were Read Back by Beck Mcgovern MD to Dr. Arely Wallace , DO, and understanding confirmed on 06/06/2024 03:07:22 (ET). Electronically Signed: Beck Mcgovern MD at 3:05 EDT , ADDENDUM: 06/06/24 0401 IMPRESSION: undefined Shuntogram 06/06/24 01:49 IMPRESSION: No evidence of shunt disruption. Gaseous distention of bowel in the upper abdomen.. CT pending No evidence of acute cardiopulmonary process. Electronically Signed: Beck Mcgovern MD at 2:49 EDT , KUB X-Ray 06/06/24 03:07 IMPRESSION: Enteric tube projects subdiaphragmatic within the stomach. Upper abdominal bowel distention, slightly decreased from prior exam. Electronically Signed: Beck Mcgovern MD at 4:44 EDT , Shuntogram obtained interpreted by myself as no evidence of disruption. Radiology in agreement. KUB obtained after NG tube placement shows the NG tube to be within the stomach on my interpretation. Radiology in agreement. Discharge Plan Triage Chief Complaint: Abd Pain ED Provider: Arely Wallace Dx/Rx/DC Orders Clinical Impression: Complete obstruction of small intestine, Acute UTI, Acute hyponatremia, Leukocytosis Prescriptions: No Action baclofen 5 MG tablet 5 mg PO TID Patient Comments: Hold for sedation/lethargy Linzess 290 mcg capsule 290 mcg PO DAILY Motegrity 2 mg tablet 2 mg PO DAILY metoclopramide HCl [Reglan] 5 mg tablet 5 mg PO Q6H PRN (Reason: nausea and vomiting) bisacodyl 10 mg Suppository 10 mg NH DAILY PRN (Reason: Constipation) Qty: 0 0RF Primary Care Provider: Lyndon Sanders Referrals: Lyndon Sanders MD [Primary Care Provider] - Print Language: Chinese Disposition Disposition: DC/Tx to Another Type of [facility]
--- NOTE | 2024-06-06 01:49 | RAD_ITS ---
INDICATION: headache, fever , vomitting EXAMINATION/TECHNIQUE: X-RAY - XR Shuntogram (Previously Placed): 5 image shunt series from skull to abdomen COMPARISON: November 28, 2023 CT. Chest radiograph September 20, 2023. FINDINGS: LINES/DEVICES: Right ventricular shunt noted without evidence of disruption from the head through the right chest and into right abdomen and pelvis.. LUNGS: No consolidation, edema or effusion. No pneumothorax. MEDIASTINUM AND CARDIOVASCULAR STRUCTURES: Cardiac silhouette not enlarged. BONES AND SOFT TISSUES: Unremarkable. ABDOMEN: Gaseous distention of bowel in upper abdomen. RAD/Shuntogram/Prev Placed Shunt IMPRESSION: No evidence of shunt disruption. Gaseous distention of bowel in the upper abdomen.. CT pending No evidence of acute cardiopulmonary process. Electronically Signed: Beck Mcgovern MD at 2:49 EDT ,
[2024-06-06] MEDS: 0.9% Normal Saline (1000mL) 1,000 ML 125 ML IV ×2 (01:57→10:00)
[2024-06-06] MEDS: Ondansetron 4 MG/2 ML Vial IV ×2 (01:58→14:23)
[2024-06-06 02:07] LABS: Absolute Lymphocyte Count 0.91 X10^3/uL (0.83-4.51); Absolute Neutrophil Count 21.6 X10^3/uL (2.0-7.7); Basophil# 0.08 X10^3/uL; Basophil% 0.3 % (0-1); Hematocrit 42.5 % (40-54); Hemoglobin 14.8 g/dL (13.0-16.5); Lymphocyte # 0.91 X10^3/ul (0.83-4.51); Lymphocyte % 3.6 % (19-41); Mean Corp Hgb Conc 34.8 g/dL (32-36); Mean Corpuscular Hgb 29.2 pg (27.0-32.0); Mean Platelet Vol. 10.1 fl (6.2-12.0); Monocyte# 2.49 X10^3/uL; Monocyte% 9.9 % (0-10); NRBC Flagged by Analyzer 0 % (0-5); Neutrophil # 21.62 X10^3/uL (2.7-7.7); Neutrophil % 85.5 % (47-70); POSITIVE DIFFERENTIAL YES; Platelet Count 368 K/mm3 (150-450); RBC Distribution Width CV 12.9 % (11.6-14.6); RBC Distribution Width SD 39.6 fl (35.1-43.9); Red Blood Count 5.06 M/mm3 (4.6-6.2); White Blood Count 25.3 K/mm3 (4.4-11.0)
[2024-06-06 02:31] LABS: Lactic Acid 1.2 mmol/L (0.4-1.9)
[2024-06-06 02:36] LABS: Differential Comment SCANNED; Differential Indicated SCAN CRITERIA MET
[2024-06-06 02:40] LABS: ALB/GLOB Ratio 0.8 RATIO (0.9-2.4); AST(SGOT) 14 U/L (15-37); Alanine Aminotransfer ALT/SGPT 19 U/L (16-61); Albumin, Serum 3.9 g/dL (3.2-5.0); Alkaline Phosphatase 92 U/L (45-117); Anion Gap 11 (5-15); BUN 16 mg/dL (7-18); Calcium,Total 9.9 mg/dL (8.5-10.1); Chloride 85 mmol/L (98-107); Creatinine, Serum 1.07 mg/dL (0.70-1.30); EST Glomerular Filtration Rate 76 mL/min (>60); Est Glom Filt Rate - Afr Amer 92 mL/min (>60); Estimated Creatinine Clearance 60.08 ml/min; Globulin 4.6 g/dL (2.2-4.2); Glucose 142 mg/dL (74-106); Lipase 17 U/L (13-75); Potassium 3.6 mmol/L (3.5-5.1); Protein, Total 8.5 g/dL (6.4-8.2); Sodium Level 121 mmol/L (136-145)
[2024-06-06 03:02] LABS: Color, Urine Yellow (Yellow); Glucose, Dipstick Normal (Normal); Ketone-Dipstick 5 mg/dl (Negative); Leukocyte Esterase-Dipstick 500 /ul (Negative); Mucous, Urine 0 SEEN /hpf (<or=2+); Nitrite-Dipstick Positive (Negative); Occult Blood-Urine 150 /ul (Negative); Protein-Dipstick 100 mg/dl (Negative); Specific Gravity, Urine 1.025 (1.002-1.030); Urine Clarity Cloudy (Clear); Urine Urobilinogen 1 mg/dl (Normal)
--- NOTE | 2024-06-06 03:07 | RAD_ITS ---
INDICATION: NG Insertion EXAMINATION/TECHNIQUE: X-RAY - XR Abdomen 1 View COMPARISON: Shunt series on same day FINDINGS: BOWEL GAS PATTERN: Enteric tube projects subdiaphragmatic within the stomach. Persistent upper abdominal distention of bowel, slightly decreased from prior exam. Right ventriculoperitoneal shunt better assessed on shunt series FREE AIR: No specific evidence of pneumoperitoneum. ORGANOMEGALY: Not seen. CALCIFICATIONS: No concerning calcifications. LOWER CHEST: No acute pathology. BONES AND SOFT TISSUES: No acute pathology. RAD/Abdomen Single View (Portable) IMPRESSION: Enteric tube projects subdiaphragmatic within the stomach. Upper abdominal bowel distention, slightly decreased from prior exam. Electronically Signed: Beck Mcgovern MD at 4:44 EDT ,
[2024-06-06 03:33] LABS: Urine Bilirubin Dipstick 1 mg/dL (Negative)
[2024-06-06 03:34] LABS: Bacteria 4+ /hpf (None Seen); Fine Granular Cast- Urine 0-5 SEEN /lpf (0-5); Hyaline Cast 0-5 SEEN /lpf (0-5); Red Blood Cells-Urine 10-25 SEEN /hpf (0-5); Squamous Epithelial Cells - UA 5-10 SEEN /hpf (0-5); White Blood Cells >100 SEEN /hpf (0-5)
[2024-06-06] MEDS: Ceftriaxone 1 GM/50 ML BAG IV (04:20)
--- NOTE | 2024-06-06 08:39 | ED.RN ---
CALLED [facility]--WAITING BED @[id number]
[2024-06-06 10:49] LABS: Pathologist Review Reviewed
--- NOTE | 2024-06-06 12:33 | ED.RN ---
CALLED [facility]--STILL WAITING ON BED; MOST LIKELY NOT TODAY
[2024-06-06] MEDS: Morphine 4 MG/ML Syringe IV (14:23)
--- NOTE | 2024-06-06 14:31 | PCM.HP.STD ---
HPI - General General Date of Admission: 06/06/24 Date of Service: 06/06/24 Chief Complaint: Abdominal pain, N/V, Fever. HPI Narrative The patient is a 58 y/o M w/ PMHx: Chronic Hyponatremia (130 usual average but vacillates between low 120s-mid 130s), HTN, Hx Seizure disorder, Gastroparesis, Neurogenic bladder with chronic indwelling hannon catheter, NPH/Hydrocephalus/Functional paraplegia with wheelchair bound status s/p [employer] shunt placement, Hx prior SBO who presents to the [facility] ED on 06/06/24 with history of onset of abdominal pain starting 06/05/2024 with onset of nausea and dry heaving with eventual bouts of emesis with elevated temperature up to 100.8 at home with family initially reporting a mild headache earlier in the day but this dissipated with last bowel movement earlier in the day upon initial ED presentation but given ongoing symptoms prompted ED evaluation. Patient notes that the distention and abdominal pain is currently resolved and he feels much improved. He was having nausea previously but was given some IV Zofran and notes this is currently resolved. He does report feeling significantly fatigued. He does report that his urine has smelled very strong and foul. Workup in the ED included T97, heart rate 105, BP 140/92, respiratory rate 17, 94% on room air, noted to be afebrile during presentation, most recent vital signs T97.8, heart rate 90, BP 129/90, respiratory rate 13, 95% room air, CBC with WC 25.3, hemoglobin 14.8, platelet 368 with significant left shift, CMP with sodium 121, chloride 85, glucose 142, lactic acid 1.2, hepatic profile with T. bili 1.50 otherwise not marked appearing, lipase 17, urine culture pending per ED, urinalysis with elevated specific remedy 1.025, protein 100, ketone 5, occult blood 150, nitrite positive, leukocyte Estrace 500 with urine RBCs 10-25, urine to BCs greater than 100 with 4+ urine bacteria, CT abdomen and pelvis with left lower lobe cavitary lesion with layering fluid concerning for possible fungal versus mycobacterial infection with cystic neoplasm less likely, mid small bowel obstruction with transition to decompressed bowel in the central abdomen with no evidence of any perforation, bladder partially decompressed by Hannon catheter with mild wall thickening adjacent inflammation, nonobstructive left nephrolithiasis, shuntogram with no evidence of any shunt disruption, gaseous distention of bowel in the upper abdomen, no acute cardiopulmonary process identified, KUB with ET tube projecting to the send diaphragmatic within the stomach, upper abdominal bowel distention, slightly decreased from previous exam. Per discussion with ED staff patient catheter was also changed in the ED. Given these initial findings patient was treated with IV Rocephin 1 g secondary to concerns for UTI and an given bowel obstruction NG tube was placed with transfer initiated to [facility] secondary to known shunt although shuntogram appropriate given high risk for any surgical intervention with acceptance by Dr. Chakraborty general surgery. Unfortunately bed availability was noted to be significantly delayed thus hospitalist service contacted for admission evaluation. Reviewed previous urine cultures and noted significant resistance patterns thus initial decision to initiate IV imipenem versus ertapenem however also reviewed imaging study and it was noted addendum to initial CT scan with concern for left lower lobe cavitary lesion with layering fluid concerning for possible fungal versus mycobacterial infection therefore at this time CT chest is also being obtained to be cautious. Patient will be placed in appropriate precautions and if CT chest does confirm this appearance would initiate aggressive antibiotic regimen and discussed case with infectious disease. [facility] will be updated regarding these findings per discussion with staff. Awaiting these findings to determine placement/precautions needed/abx needed. [facility] Medical History COVID-19 Complicated UTI (urinary tract infection) Hydrocephalus Hyponatremia Chronic indwelling Hannon catheter Chronic intestinal pseudo-obstruction BPH (benign prostatic hyperplasia) Chronic hyponatremia Normal pressure hydrocephalus Bladder stones Bladder diverticulum Inguinal hernia Catheter-associated urinary tract infection Hyponatremia Hypertension Seizures Gastroparesis Ileus Chronic indwelling Hannon catheter Hydrocephalus History of urinary retention Home Medications ?Medication ?Instructions ?Recorded ?Last Taken ?Type baclofen 5 mg tablet 5 mg PO TID MUSCLE SPASMS 07/21/22 02/20/23 History linaclotide 290 mcg capsule 290 mcg PO DAILY IRRITABLE BOWELS 08/09/23 Unknown History (Linzess) prucalopride 2 mg tablet 2 mg PO DAILY CHRONIC CONSTIPATION 08/09/23 Unknown History (Motegrity) metoclopramide HCl 5 mg tablet 5 mg PO Q6H PRN nausea and vomiting 09/20/23 Unknown History (Reglan) bisacodyl 10 mg rectal suppository 10 mg MA DAILY PRN Constipation #0 09/22/23 Unknown Rx ea Allergy/AdvReac Type Severity Reaction Status Date / Time Iodinated Contrast Media Allergy Anaphylaxis Verified 06/06/24 01:10 (Iodinated Contrast Media - IV Dye) nitrofurantoin AdvReac Upset Verified 06/06/24 01:10 Stomach Family History (Updated 06/06/24 @ 15:[address] Nikki Celestin MD) Father Heart disease Kidney stones Prostate disease Hypertension Brother Kidney stones Mother Cancer Hypertension Peptic ulcer disease Surgical History [employer] (ventriculoperitoneal) shunt status S/P release of urethral stricture S/P [employer] shunt Social History household members: family Smoking Status: Never smoker alcohol intake: never substance use type: does not use ROS ROS Narrative Admission Review of Systems: CONSTITUTIONAL: No weight loss, fever, chills, + weakness or fatigue. HEENT: Eyes: No visual loss, blurred vision, double vision or yellow sclerae. Ears, Nose, Throat: No hearing loss, sneezing, congestion, runny nose or sore throat. SKIN: No rash or itching, lesions, wounds. CARDIOVASCULAR: No chest pain, chest pressure or chest discomfort, palpitations, edema, orthopnea, syncopal events. RESPIRATORY: No shortness of breath, cough or sputum, wheezing, hemoptysis. GASTROINTESTINAL: + Anorexia, abdominal discomfort, distention, lack of bowel movement and flatus, nausea, emesis. No melena, BRBPR. GENITOURINARY: + Neurogenic bladder with chronic indwelling Hannon catheter with also history of retention previously, reporting foul-smelling/strong smelling urine. NEUROLOGICAL: + History neurogenic bladder, NPH, hydrocephalus with functional paraplegia with wheelchair bound status, seizure disorder, No headache, dizziness, syncope, change in bowel or bladder control. MUSCULOSKELETAL: + muscle, back pain, joint pain or stiffness. HEMATOLOGIC: No anemia, bleeding or bruising. LYMPHATICS: No enlarged nodes. No history of splenectomy. PSYCHIATRIC: No history of depression or anxiety. ENDOCRINOLOGIC: No reports of sweating, cold or heat intolerance. No polyuria or polydipsia. ALLERGIES: + History of anaphylaxis. Vital Signs Vital Signs Vital Signs: 06/06/24 01:10 06/06/24 02:25 06/06/24 03:25 Temperature 97 F L 98.4 F 98.7 F Temperature Source Temporal Oral Oral Pulse Rate 105 H 122 H 93 Respiratory Rate 17 22 H 16 Blood Pressure 130/92 H 132/80 H 96/66 Blood Pressure Mean 104 97 76 Pulse Ox 94 96 94 Oxygen Delivery Method Room Air Room Air Room Air 06/06/24 04:00 06/06/24 05:00 06/06/24 06:00 Temperature 98 F 97.4 F L 97.7 F L Temperature Source Oral Temporal Temporal Pulse Rate 99 98 93 Respiratory Rate 20 H 16 16 Blood Pressure 124/79 H 105/67 108/69 Blood Pressure Mean 94 79 82 Pulse Ox 94 93 94 Oxygen Delivery Method Room Air Room Air Room Air 06/06/24 07:00 06/06/24 08:00 06/06/24 09:14 Temperature 97.0 F L 97.7 F L 96.8 F L Temperature Source Temporal Temporal Temporal Pulse Rate 93 93 100 Respiratory Rate 15 15 15 Blood Pressure 111/70 106/65 116/68 Blood Pressure Mean 83 78 84 Pulse Ox 96 94 95 Oxygen Delivery Method Room Air Room Air Room Air 06/06/24 10:01 06/06/24 11:00 06/06/24 12:00 Temperature 97.0 F L 97.1 F L 97.3 F L Temperature Source Temporal Temporal Temporal Pulse Rate 97 96 98 Respiratory Rate 18 12 16 Blood Pressure 118/70 116/69 117/74 Blood Pressure Mean 86 84 88 Pulse Ox 92 92 93 Oxygen Delivery Method Room Air Room Air Room Air 06/06/24 13:00 Temperature 97.8 F Temperature Source Temporal Pulse Rate 90 Respiratory Rate 13 Blood Pressure 129/90 H Blood Pressure Mean 103 Pulse Ox 95 Oxygen Delivery Method Room Air Weight Weight: 121 lb 7.595 oz Body Mass Index (BMI) 21.5 Physical Exam Narrative Physical Examination: General: Awake, alert, oriented to self, place and recent events, laying in the ED bed, notes feeling improved status post NG tube placement, denies any current abdominal pain or nausea. Skin: Normal color, normal turgor, no icterus, no cyanosis except occasional staged ecchymoses, abrasion. HEENT: AT/NC, EOMI, PERRLA, dry MM, NG tube in place, poor dentition, no carotid bruits or JVD noted. Lungs: Mildly diminished, greater bases, proper effort, no rales, ronchi or wheezing. Heart: Regular rate and rhythm; no gallop, rub audible. Abdomen: Soft, abdomen nontender palpation with no rebound or guarding, absent bowel sounds, no HSM, NG tube in place, canister currently empty but was recently changed per report. Extremities: No cyanosis, clubbing, or edema, evidence of lower extremity muscle wasting. Neurological: Patient awake, alert, oriented as noted, cognitive function appropriate and patient is currently baseline intact; pupils equally reactive to light and accommodation, cranial nerves grossly normal, moving extremities but patient does have significant distal muscle wasting and uses a wheelchair at baseline. Psychiatric: Affect appears fatigued, ill-appearing, abdominal pain currently resolved, no acute evidence of depressive or anxiety feelings. Results Lab / Micro Data 06/06/24 01:38 06/06/24 01:38 Labs: Laboratory Results - last 24 hr 06/06/24 01:38: WBC 25.3 H, RBC 5.06, Hgb 14.8, Hct 42.5, MCV 84.0, MCH 29.2, MCHC 34.8, RDW Std Deviation 39.6, RDW Coeff of Frieda 12.9, Plt Count 368, MPV 10.1, Immature Gran % (Auto) 0.700, Neut % (Auto) 85.5 H, Lymph % (Auto) 3.6 L, [place] % (Auto) 9.9, Eos % (Auto) 0.0, Baso % (Auto) 0.3, Absolute Neuts (auto) 21.6 H, Absolute Lymphs (auto) 0.91, Nucleated RBC % 0, Differential Comment SCANNED, Diff Path Review Reviewed, Sodium 121 L, Potassium 3.6, Chloride 85 L, Carbon Dioxide 25.0, Anion Gap 11, BUN 16, Creatinine 1.07, Estim Creat Clear Calc 60.08, Est GFR (MDRD) Af Amer 92, Est GFR (MDRD) Non-Af 76, BUN/Creatinine Ratio 15.0, Glucose 142 H, Calcium 9.9, Total Bilirubin 1.50 H, AST 14 L, ALT 19, Alkaline Phosphatase 92, Total Protein 8.5 H, Albumin 3.9, Globulin 4.6 H, Albumin/Globulin Ratio 0.8 L, Lipase 17 06/06/24 01:59: Lactic Acid 1.2 06/06/24 02:59: Urine Color Yellow, Urine Clarity Cloudy, Urine pH 5.0, Ur Specific [place] 1.025, Urine Protein 100 H, Urine Glucose (UA) Normal, Urine Ketones 5 H, Urine Occult Blood 150 H, Urine Nitrite Positive H, Urine Bilirubin 1 H, Urine Urobilinogen 1 H, Ur Leukocyte Esterase 500 H, Urine RBC 10-25 SEEN, Urine WBC >100 SEEN, Ur Squamous Epith Cells 5-10 SEEN, Urine Bacteria 4+, Hyaline Casts 0-5 SEEN, Fine Granular Casts 0-5 SEEN, Urine Mucus 0 SEEN Imaging Radiology Impression Abdomen/Pelvis CT 06/06/24 01:46 IMPRESSION: Mid small bowel bowel obstruction with transition to decompressed bowel in the central abdomen. No evidence of perforation. Bladder partially decompressed by Hannon catheter with mild wall thickening adjacent inflammation. Correlate with urine for evidence of cystitis. Nonobstructive left nephrolithiasis. Electronically Signed: Beck Mcgovern MD at 3:05 EDT , ADDENDUM: 06/06/24 0314 IMPRESSION: Mid small bowel bowel obstruction with transition to decompressed bowel in the central abdomen. No evidence of perforation. Bladder partially decompressed by Hannon catheter with mild wall thickening adjacent inflammation. Correlate with urine for evidence of cystitis. Nonobstructive left nephrolithiasis. N.B. : The above Results were Read Back by Beck Mcgovern MD to Dr. Arely Wallace DO, and understanding confirmed on 06/06/2024 03:07:22 (ET). Electronically Signed: Beck Mcgovern MD at 3:05 EDT , ADDENDUM: 06/06/24 0401 IMPRESSION: undefined Shuntogram 06/06/24 01:49 IMPRESSION: No evidence of shunt disruption. Gaseous distention of bowel in the upper abdomen.. CT pending No evidence of acute cardiopulmonary process. Electronically Signed: Beck Mcgovern MD at 2:49 EDT , KUB X-Ray 06/06/24 03:07 IMPRESSION: Enteric tube projects subdiaphragmatic within the stomach. Upper abdominal bowel distention, slightly decreased from prior exam. Electronically Signed: Beck Mcgovern MD at 4:44 EDT , Assessment & Plan Assessment/Plan (1) Complete obstruction of small intestine: PLAN: Plan The patient is a 58 y/o M w/ PMHx: Chronic Hyponatremia (130 usual average but vacillates between low 120s-mid 130s), HTN, Hx Seizure disorder, Gastroparesis, Neurogenic bladder with chronic indwelling hannon catheter, NPH/Hydrocephalus/Functional paraplegia with wheelchair bound status s/p [employer] shunt placement, Hx prior SBO who presents to the [facility] ED on 06/06/24 with history of onset of abdominal pain starting 06/05/2024 with onset of nausea and dry heaving with eventual bouts of emesis with elevated temperature up to 100.8 at home with family initially reporting a mild headache earlier in the day but this dissipated with last bowel movement earlier in the day upon initial ED presentation but given ongoing symptoms prompted ED evaluation. #1. Abdominal pain, distention, nausea and emesis secondary to complicated small bowel obstruction with previous history: Given there is no [facility] bed available at this time would plan to temporarily admit to [facility] on MedSurg, maintain on judicious IVFs, continue NGT to suction, strict I&Os, IV pain/anti-emetics PRN, serial KUB as needed to montior bowel function, PPI IV, maintain NPO on bowel rest. General surgery, Dr. Diego was contacted and will evaluate patient in the interim until bed is obtained at tertiary facility. #2. Acute Complicated Urinary Tract Infection associated with Chronic Indwelling Hannon Catheter with Neurogenic bladder with significant resistance history per urine culture review with ESBL, VRE, Proteus Mirabellis on prior Cx noted: UA upon ED evaluation remarkable, pending UCx, continue IVFs, monitor I/Os, initially administered IV Rocephin however based on previous cultures patient would have likely significant resistance, decision to initiate IV meropenem however may need to broaden this regimen given pending CT chest as noted, will alter pending CT chest as well as urine culture sensitivities and speciation. #3. Incidentally noted Questionable left lower lobe cavitary lesion with layering fluid: Noted on CT imaging of the abdomen pelvis, concerning for possible fungal versus mycobacterial infection. As noted will temporally place patient in precautions and as discussed with ED physician CT chest will be obtained to further evaluate. If there is in fact an obvious cavitary lesion will discuss case with infectious disease and would likely have to broaden regimen from not only imipenem to treat possibility of a mycobacterial infection versus fungal infection. Will await this imaging prior to decision and course of treatment plan. #4. Acute on Chronic Hyponatremia, hypochloremia: Admission Na 121, baseline does appear mid 120s-low 130s, likely worsened by recent decreased intake given #1 and #2 as well as possibly #3, will continue to hydrate and repeat CMP in AM. #5. Hyperglycemia, possibly stress response: Admission glucose 142, to be cautious will obtain hemoglobin A1c. #6. NPH, Hydrocephalus, Chronic wheelchair status, functional paraplegia, chart reported seizure history: s/p [employer] shunt, ED obtained shuntogram unremarkable, encourage continued follow-up with his Neurologist/Neurosurgery, fall precautions, frequent positional changes, barrier care, despite seizure history reported no usage of AED. Holding chronic baclofen given NG tube placement as noted, will change to low dose IV ativan to prevent withdrawal component. #7. Gastroparesis, chronic component: Patient is not on any reglan or medication, currently NPO status with NG tube, if needed may add low dose IV reglan. #8. DVT prophylaxis: Lovenox. #9. CODE status: Patient sister is his HCPOA and LW is currently in place. Discussed CODE status at length including difference between FULL code, DNR-CCA and DNR-CC status. Following discussions about the differences in these status and following discussions sister and patient elect full code but sister does note that if he worsened or was deteriorating they would consider altering his status. Advanced Care Planning Face to Face Time: 16 minutes. Charges/Coding Visit Charges Inpatient E&M: 70680 Init Hosp L3 Procedures Hospitalists Procedures: 24753 Advncd Care Plan 30 Min
--- NOTE | 2024-06-06 15:00 | CT_ITS ---
STUDY: CT CHEST WITHOUT CONTRAST REASON FOR EXAM: Male, 58 years old. Lung lesion RADIATION DOSAGE (If Supplied By Facility): CTDIvol = ( 9.61 ) mGy, DLP = ( 360.40 ) mGycm TECHNIQUE: Transaxial imaging was performed without the administration of intravenous contrast material. Multiplanar coronal and sagittal images were reformatted. Individualized dose optimization techniques were used for this CT. COMPARISON: Comparison is made with prior CT scan of the abdomen and pelvis dated June 06, 2024. FINDINGS: CHEST An orogastric tube is seen within the esophagus. There is a 1.1 cm partially cavitated lesion in the posterior aspect of the left lower lobe. This may represent either focal bronchiectasis with fluid versus a cavitary nodule. Increased markings at the lung bases slightly more prominent on the right side suggestive of scarring and/or atelectasis. Calcified right pleural plaques. There are calcifications of the coronary arteries. Normal mediastinum. Normal hilar regions. Normal unenhanced pulmonary arteries. Normal aorta arch and descending thoracic aorta. There are multi-level degenerative changes of the thoracic spine. Fluid-filled small bowel loops. CT/Chest without Contrast IMPRESSION: 1.1 cm cavitated nodule at the left lung base. Three-month follow-up is recommended. Findings suggestive of scarring at the lung bases with calcified pleural plaques on the right side. Electronically Signed: Kingsley Butler MD at 15:19 EDT ,
[2024-06-06] MEDS: Meropenem 1 GM in 0.9% Normal Saline (100mL MB+) 100 ML IV ×2 (15:14→21:49)
[2024-06-06] MEDS: 0.9% Normal Saline (1000mL) 1,000 ML 999 ML IV (17:42)
[2024-06-06] MEDS: 0.9% Normal Saline (1000mL) 1,000 ML 100 ML IV (17:44)
[2024-06-06] MEDS: Pantoprazole Sodium 40 MG in 0.9% Normal Saline (100mL MB+) 100 ML 330 MG IV ×2 (18:31→21:15)
--- NOTE | 2024-06-06 18:37 | NURSING ---
notified sister that dr ordered atvian so pt will not go through withdraw from baclofen. sister understands why it was ordered but does not want pt to have it. she stated that pt has not been able to take baclofen dose for a bit and already is spastic. sister stated that ativan will only add to the bowel issues.
[2024-06-06] MEDS: Vancomycin HCl 1,250 MG in 0.9% Normal Saline (250mL Bag) 250 ML 167 MG IV (18:53)
[2024-06-06 18:59] LABS: M R Staph aureus DNA By PCR Negative (Negative); Probe Check PASS; Specimen Processing Control PASS
--- NOTE | 2024-06-06 20:04 | PCM.RX.CS ---
Consult Antibiotic Management Pharmacy has been consulted to manage selected antibiotic: Vancomycin Type of Intervention Type of Consult: New start Suspected Infection Suspected Infection: Other Labs Labs: Sodium 121 mmol/L (136-145) L 06/06/24 01:38 Potassium 3.6 mmol/L (3.5-5.1) 06/06/24 01:38 Chloride 85 mmol/L (98-107) L 06/06/24 01:38 Carbon Dioxide 25.0 mmol/L (21.0-32.0) 06/06/24 01:38 Anion Gap 11 (5-15) 06/06/24 01:38 BUN 16 mg/dL (7-18) 06/06/24 01:38 Creatinine 1.07 mg/dL (0.70-1.30) 06/06/24 01:38 Est GFR (MDRD) Af Amer 92 mL/min (>60) 06/06/24 01:38 Est GFR (MDRD) Non-Af 76 mL/min (>60) 06/06/24 01:38 BUN/Creatinine Ratio 15.0 RATIO (10-20) 06/06/24 01:38 Glucose 142 mg/dL (74-106) H 06/06/24 01:38 Microbiology Microbiology: Microbiology 06/06/24 02:59 Urine Catheter - Bowman Legionella Antigen - Final 06/06/24 02:59 Urine Catheter - Bowman Streptococcus pneumoniae Antigen (M - Final Goal Trough Goal Trough: 15-20 mcg/mL Pharmacy Plan for Drug Dosing Pharmacy Plan for Drug Dosing: NEW START IV VANCOMYCIN Consulting Physician: Dr. Celestin Indication: Complicated UTI/ r/o possible infected cavitary lesion Goal Trough: 15-20 SrCr: 1.07 CrCl: 60 mL/min Comments: Loading dose of 1250mg IV X1 ordered and administered 06/06 @1853 Vancomycin Dose: Vancomycin 500mg IV Q12hr to start 06/07/24 @0700 Pending Level: 06/08/24 @0630, prior to 4th total dose of vanco per protocol Pharmacy Service will continue to monitor and adjust dosing as required.
--- NOTE | 2024-06-06 22:48 | CON.PCM.SX_ITS ---
Assessment & Plan Assessment/Plan (1) Complete obstruction of small intestine: PLAN: Patient is a 58-year-old male with moderately complex past medical history inclusive of recurrent small bowel obstructions who presents with signs and symptoms of a recurrent obstruction. He notes that all of his symptoms developed acutely yesterday after normal bowel movement. He shares that he is improved now after nasogastric tube decompression. Indeed, on exam his abdomen is benign. There is approximately 600 mL of mildly bilious simple fluid in the nasogastric tube collection. Patient does deny any passage of flatus. Based on patient's exam and his history of resolution through conservative measures I would be inclined to pursue a small bowel follow-through tomorrow via his nasogastric tube. However, if he were to fail this test he would require transfer to a tertiary facility given the concurrent ventriculoperitoneal shunt. Myke Diego MD General Surgery Endocrine Surgery Pager: [facility] [address] [place] [address], [facility], [address] [place] [id number] Office: [phone] HPI Consult Data Date of Consult: 06/06/24 HPI Narrative Reason for Consultation: Small bowel obstruction HPI Narrative: JIAN FUENTES, is a 58 M who presented to [facility] last evening after acutely developing abdominal discomfort, nausea and vomiting. He is well-known to me and our service for history of recurrent small bowel obstructions but was last seen by me in March 2023. He shares that overall he has done better from a small bowel obstruction standpoint but was fairly recently operated on for urologic issues (later specified to mean removal of bladder stones) at the [facility]. He notes that he was having a reasonable day yesterday and actually even had a bowel movement yesterday before he developed the nausea and vomiting. CT imaging of the abdomen pelvis was obtained and showed evidence of a transition point within the mid abdomen. Transfer was sought to a tertiary facility given patient's indwelling ventriculoperitoneal shunt and while acceptance was made bed availability was not guaranteed. Ultimately patient was admitted to the hospital by the hospitalist service as he awaited transfer. A nasogastric tube was placed in this interim and Mr. Fuentes confirms that he now feels better after its placement. [facility] Medical History COVID-19 Complicated UTI (urinary tract infection) Hydrocephalus Hyponatremia Chronic indwelling Bowman catheter Chronic intestinal pseudo-obstruction BPH (benign prostatic hyperplasia) Chronic hyponatremia Normal pressure hydrocephalus Bladder stones Bladder diverticulum Inguinal hernia Catheter-associated urinary tract infection Hyponatremia Hypertension Seizures Gastroparesis Ileus Chronic indwelling Bowman catheter Hydrocephalus History of urinary retention Home Medications ?Medication ?Instructions ?Recorded ?Last Taken ?Type baclofen 5 mg tablet 5 mg PO TID MUSCLE SPASMS 07/21/22 02/20/23 History linaclotide 290 mcg capsule 290 mcg PO DAILY IRRITABLE BOWELS 08/09/23 Unknown History (Linzess) prucalopride 2 mg tablet 2 mg PO DAILY CHRONIC CONSTIPATION 08/09/23 Unknown History (Motegrity) metoclopramide HCl 5 mg tablet 5 mg PO Q6H PRN nausea and vomiting 09/20/23 Unknown History (Reglan) bisacodyl 10 mg rectal suppository 10 mg [place] DAILY PRN Constipation #0 09/22/23 Unknown Rx ea Allergy/AdvReac Type Severity Reaction Status Date / Time Iodinated Contrast Media Allergy Anaphylaxis Verified 06/06/24 01:10 (Iodinated Contrast Media - IV Dye) nitrofurantoin AdvReac Upset Verified 06/06/24 01:10 Stomach Family History (Updated 06/06/24 @ 15:[address] Nikki Celestin MD) Father Heart disease Kidney stones Prostate disease Hypertension Brother Kidney stones Mother Cancer Hypertension Peptic ulcer disease Surgical History NAILHEAD OPERATOR (ventriculoperitoneal) shunt status S/P release of urethral stricture S/P NAILHEAD OPERATOR shunt Social History household members: family Smoking Status: Never smoker alcohol intake: never substance use type: does not use ROS Gastrointestinal Gastrointestinal: Reports abdominal pain, nausea and vomiting Physical Exam Const alert and no apparent distress General Appearance: cooperative Resp normal respiratory effort GI GI Narrative: Numerous scars well-healed, no visible herniation, nondistended, soft, nontender to palpation x 4 quadrants Lab / Micro Data 06/06/24 01:38 06/06/24 01:38 Labs: Laboratory Results - last 24 hr 06/06/24 01:38: WBC 25.3 H, RBC 5.06, Hgb 14.8, Hct 42.5, MCV 84.0, MCH 29.2, MCHC 34.8, RDW Std Deviation 39.6, RDW Coeff of Frieda 12.9, Plt Count 368, MPV 10.1, Immature Gran % (Auto) 0.700, Neut % (Auto) 85.5 H, Lymph % (Auto) 3.6 L, [place] % (Auto) 9.9, Eos % (Auto) 0.0, Baso % (Auto) 0.3, Absolute Neuts (auto) 21.6 H, Absolute Lymphs (auto) 0.91, Nucleated RBC % 0, Differential Comment SCANNED, Diff Path Review Reviewed, Sodium 121 L, Potassium 3.6, Chloride 85 L, Carbon Dioxide 25.0, Anion Gap 11, BUN 16, Creatinine 1.07, Estim Creat Clear Calc 60.08, Est GFR (MDRD) Af Amer 92, Est GFR (MDRD) Non-Af 76, BUN/Creatinine Ratio 15.0, Glucose 142 H, Calcium 9.9, Total Bilirubin 1.50 H, AST 14 L, ALT 19, Alkaline Phosphatase 92, Total Protein 8.5 H, Albumin 3.9, Globulin 4.6 H, A lbumin/Globulin Ratio 0.8 L, Lipase 17 06/06/24 01:59: Lactic Acid 1.2 06/06/24 02:59: Urine Color Yellow, Urine Clarity Cloudy, Urine pH 5.0, Ur Specific [place] 1.025, Urine Protein 100 H, Urine Glucose (UA) Normal, Urine Ketones 5 H, Urine Occult Blood 150 H, Urine Nitrite Positive H, Urine Bilirubin 1 H, Urine Urobilinogen 1 H, Ur Leukocyte Esterase 500 H, Urine RBC 10-25 SEEN, Urine WBC >100 SEEN, Ur Squamous Epith Cells 5-10 SEEN, Urine Bacteria 4+, Hyaline Casts 0-5 SEEN, Fine Granular Casts 0-5 SEEN, Urine Mucus 0 SEEN 06/06/24 17:40: MRSA (PCR) Negative Micro: Microbiology 06/06/24 18:40 Mucosa - Nose Respiratory Panel (PCR) - Final 06/06/24 02:59 Urine Catheter - Bowman Legionella Antigen - Final 06/06/24 02:59 Urine Catheter - Bowman Streptococcus pneumoniae Antigen (M - Final Imaging Radiology Impression Abdomen/Pelvis CT 06/06/24 01:46 IMPRESSION: Mid small bowel bowel obstruction with transition to decompressed bowel in the central abdomen. No evidence of perforation. Bladder partially decompressed by Bowman catheter with mild wall thickening adjacent inflammation. Correlate with urine for evidence of cystitis. Nonobstructive left nephrolithiasis. Electronically Signed: Beck Mcgovern MD at 3:05 EDT Reading Location ID and State: [facility] / [place] Tel , Service support , ADDENDUM: 06/06/24 0314 IMPRESSION: Mid small bowel bowel obstruction with transition to decompressed bowel in the central abdomen. No evidence of perforation. Bladder partially decompressed by Bowman catheter with mild wall thickening adjacent inflammation. Correlate with urine for evidence of cystitis. Nonobstructive left nephrolithiasis. N.B. : The above Results were Read Back by Beck Mcgovern MD to Dr. Arely Wallace DO, and understanding confirmed on 06/06/2024 03:07:22 (ET). Electronically Signed: Beck Mcgovern MD at 3:05 EDT Reading Location ID and State: [facility] / [place] Tel , Service support , ADDENDUM: 06/06/24 0401 IMPRESSION: undefined Shuntogram 06/06/24 01:49 IMPRESSION: No evidence of shunt disruption. Gaseous distention of bowel in the upper abdomen.. CT pending No evidence of acute cardiopulmonary process. Electronically Signed: Beck Mcgovern MD at 2:49 EDT , KUB X-Ray 06/06/24 03:07 IMPRESSION: Enteric tube projects subdiaphragmatic within the stomach. Upper abdominal bowel distention, slightly decreased from prior exam. Electronically Signed: Beck Mcgovern MD at 4:44 EDT , Chest CT 06/06/24 15:00 IMPRESSION: 1.1 cm cavitated nodule at the left lung base. Three-month follow-up is recommended. Findings suggestive of scarring at the lung bases with calcified pleural plaques on the right side. Electronically Signed: Kingsley Butler MD at 15:19 EDT , Charges/Coding Visit Charges Inpatient E&M: 41000 Init Hosp L2
[2024-06-07] VITALS (7 sets, daily range): BP systolic 119–158; BP diastolic 75–89; PULSE 84–93; RESP 16–18; TEMP 36.5–37.1; O2SAT 95–99; BMI 20.7
--- NOTE | 2024-06-07 05:55 | RAD_ITS ---
INDICATION: bowel obstruction EXAMINATION/TECHNIQUE: X-RAY - Supine AP view. COMPARISON: 06/06/2024. FINDINGS: Ventriculoperitoneal shunt terminates in the left hemipelvis. Enteric tube side-port and distal tip are distal to the GE junction within the proximal stomach. BOWEL GAS PATTERN: Again seen is dilated small bowel. CALCIFICATIONS: No abnormal calcifications identified. LOWER CHEST: Visualized lung bases are unremarkable. BONES AND SOFT TISSUES: No acute abnormality. RAD/Abdomen Single View (Portable) IMPRESSION: Dilated small bowel consistent with small bowel obstruction, slightly improved as compared to the prior exam. Electronically Signed: Damian Moon DO at 6:28 EDT ,
[2024-06-07] MEDS: 0.9% Normal Saline (1000mL) 1,000 ML 100 ML IV (05:56)
[2024-06-07] MEDS: Vancomycin IV 500 MG/100 ML BAG 100 MG IV (06:00)
--- NOTE | 2024-06-07 06:58 | RAD_ITS ---
STUDY: GASTROGRAFIN SMALL BOWEL FOLLOW-THROUGH EXAMINATION. REASON FOR EXAM: Male, 58 years old. f/u SBO -- Films: Immediately post GG, 6 h, 12 h, and 24h TECHNIQUE: Gastrografin was introduced into the indwelling nasogastric tube. Imaging was performed at 6 hours, 12 hours and 24 hours following the placement of the contrast. COMPARISON: None. FINDINGS: On the 6 hour study, contrast is seen throughout the entire colon. There is evidence of a dilated small bowel loops. This may represent an ileus pattern. Contrast is still seen in the colon on the 24 hour image. RAD/Small Bowel Series Only IMPRESSION: No evidence of the small bowel obstruction although there is evidence of small bowel dilatation suggestive of ileus pattern. Electronically Signed: Kingsley Butler MD at 13:39 EDT ,
--- NOTE | 2024-06-07 06:59 | PN.SURG_ITS ---
Subjective Subjective Patient seen and examined during AM rounds. He reports that he is doing about the same as yesterday. He denies passage of flatus but he also denies any nausea. He suggests colicky abdominal discomfort. Objective Data Objective Data Vital Signs: Vital Signs Temp Pulse Resp BP Pulse Ox O2 Del Method 97.8 F 92 16 119/75 95 Room Air 06/07/24 02:00 06/07/24 02:00 06/07/24 02:00 06/07/24 02:00 06/07/24 02:00 06/07/24 02:00 Oxygen Delivery Method Room Air Weight: 117 lb 1.047 oz Body Mass Index (BMI) 20.7 Intake & Output: Intake and Output for Last 24 Hours 06/05/24 06/06/24 06/07/24 23:59 23:59 23:59 Intake Total 3926.82 / 4051.82 1470 / 1470 Output Total 2000 / 2650 1200 / 1200 Balance 1926.82 / 1401.82 270 / 270 Lab / Micro Data 06/07/24 06:18 06/07/24 06:18 Labs: Laboratory Results - last 24 hr 06/06/24 01:38: Diff Path Review Reviewed 06/06/24 17:40: MRSA (PCR) Negative Micro: Microbiology 06/06/24 18:40 Mucosa - Nose Respiratory Panel (PCR) - Final 06/06/24 02:59 Urine Catheter - Bowman Legionella Antigen - Final 06/06/24 02:59 Urine Catheter - Bowman Streptococcus pneumoniae Antigen (M - Final Radiography Diagnostic Testing: Radiology Impression Chest CT 06/06/24 15:00 IMPRESSION: 1.1 cm cavitated nodule at the left lung base. Three-month follow-up is recommended. Findings suggestive of scarring at the lung bases with calcified pleural plaques on the right side. Electronically Signed: Kingsley Butler MD at 15:19 EDT , KUB X-Ray 06/07/24 05:55 IMPRESSION: Dilated small bowel consistent with small bowel obstruction, slightly improved as compared to the prior exam. Electronically Signed: Damian Moon DO at 6:28 EDT , Physical Exam Const oriented x3 and no apparent distress GI GI Narrative: Nasogastric tube in place draining thin, serous?type gastric contents with mild tenting, minimally distended, soft, minimally tender to palpation x 4 quadrants (nonfocal) Assessment & Plan Assessment/Plan (1) Complete obstruction of small intestine: PLAN: Patient is a 58-year-old male with moderately complex past medical history inclusive of recurrent small bowel obstructions who presents with signs and symptoms of a recurrent obstruction. Patient appears stable today without spontaneous return of bowel function, however, his exam is relatively benign. Given that he has undergone adequate NG tube decompression will begin small bowel follow-through. Myke Diego MD General Surgery Endocrine Surgery Pager: [facility] [address] [place] [address], [address] [place] [id number] Office: [phone] Charges/Coding Visit Charges Inpatient E&M: 68380 Subs Hosp L2
[2024-06-07] MEDS: Meropenem 1 GM in 0.9% Normal Saline (100mL MB+) 100 ML IV ×2 (07:07→13:32)
[2024-06-07 07:37] LABS: Absolute Lymphocyte Count 1.23 X10^3/uL (0.83-4.51); Absolute Neutrophil Count 6.1 X10^3/uL (2.0-7.7); Basophil# 0.03 X10^3/uL; Basophil% 0.3 % (0-1); Eosinophil# 0.07 X10^3/uL; Eosinophils% 0.8 % (0-5); Hemoglobin 11.8 g/dL (13.0-16.5); Lymphocyte # 1.23 X10^3/ul (0.83-4.51); Lymphocyte % 13.9 % (19-41); Mean Corp Hgb Conc 32.8 g/dL (32-36); Mean Corpuscular Hgb 29.4 pg (27.0-32.0); Mean Corpuscular Volume 89.8 fL (80-94); Mean Platelet Vol. 10.7 fl (6.2-12.0); Monocyte# 1.37 X10^3/uL; Monocyte% 15.5 % (0-10); NRBC Flagged by Analyzer 0 % (0-5); Neutrophil # 6.12 X10^3/uL (2.7-7.7); Neutrophil % 69.2 % (47-70); Platelet Count 284 K/mm3 (150-450); RBC Distribution Width CV 13.1 % (11.6-14.6); RBC Distribution Width SD 43.8 fl (35.1-43.9); Red Blood Count 4.01 M/mm3 (4.6-6.2); White Blood Count 8.9 K/mm3 (4.4-11.0)
--- NOTE | 2024-06-07 07:59 | CASEMGMT ---
Social Work- Pt has directives naming sister, Lesli, as primary agent and brother, Nicholas, as alternate agent in chart. JORGE Mahoney
[2024-06-07 08:25] LABS: ALB/GLOB Ratio 0.8 RATIO (0.9-2.4); AST(SGOT) 12 U/L (15-37); Alanine Aminotransfer ALT/SGPT 13 U/L (16-61); Albumin, Serum 2.5 g/dL (3.2-5.0); Alkaline Phosphatase 62 U/L (45-117); Anion Gap 11 (5-15); BUN 12 mg/dL (7-18); BUN/Creat Ratio 19.3 RATIO (10-20); Calcium,Total 7.7 mg/dL (8.5-10.1); Chloride 103 mmol/L (98-107); Creatinine, Serum 0.62 mg/dL (0.70-1.30); EST Glomerular Filtration Rate 142 mL/min (>60); Est Glom Filt Rate - Afr Amer 172 mL/min (>60); Estimated Creatinine Clearance 99.92 ml/min; Globulin 3.3 g/dL (2.2-4.2); Glucose 73 mg/dL (74-106); Potassium 3.5 mmol/L (3.5-5.1); Protein, Total 5.8 g/dL (6.4-8.2); Sodium Level 135 mmol/L (136-145)
[2024-06-07 09:23] LABS: Hemoglobin A1c 5.1 % (3.8-5.6)
--- NOTE | 2024-06-07 09:23 | CASEMGMT ---
Insurance review for hospitals In-network with?[place] insurance if transfer is recommended is as follows: [facility], [place], [facility], [place], [facility], [facility], [facility], [facility], [place], [facility]), and . Felicita Armenta, Discharge Planning Asst.
[2024-06-07] MEDS: Pantoprazole Sodium 40 MG in 0.9% Normal Saline (100mL MB+) 100 ML 330 MG IV ×2 (10:49→21:41)
[2024-06-07] MEDS: Enoxaparin 40 MG/0.4 ML Syringe SC (10:49)
[2024-06-07 13:03] LABS: Bedside Glucose 72 mg/dL (74-106)
[2024-06-07] MEDS: 0.9% Normal Saline (250mL Bag) 250 ML 15 ML IV (13:31)
--- NOTE | 2024-06-07 13:47 | PN_ITS ---
Subjective Subjective Patient seen and examined. He said he felt better. He still has not passed gas but denies any abdominal pain. He has an NG tube in situ and is due for Gastrografin study today. Review of symptoms otherwise negative. Objective Data Objective Data Vital Signs: Vital Signs Temp Pulse Resp BP Pulse Ox O2 Del Method 97.8 F 87 16 144/88 H 97 Room Air 06/07/24 13:40 06/07/24 13:40 06/07/24 13:40 06/07/24 13:40 06/07/24 13:40 06/07/24 13:40 Oxygen Delivery Method Room Air Weight: 117 lb 1.047 oz Body Mass Index (BMI) 20.7 Intake & Output: Intake and Output for Last 24 Hours 06/05/24 06/06/24 06/07/24 23:59 23:59 23:59 Intake Total 3926.82 / 4051.82 1925 / 1925 Output Total 1999 / 2650 2100 / 2100 Balance 1926.82 / 1401.82 -175 / -175 Lab / Micro Data 06/07/24 06:18 06/07/24 06:18 Labs: Laboratory Results - last 24 hr 06/06/24 17:40: MRSA (PCR) Negative 06/07/24 06:18: WBC 8.9, RBC 4.01 L, Hgb 11.8 L, Hct 36.0 L, MCV 89.8 D, MCH 29.4, MCHC 32.8 D, RDW Std Deviation 43.8, RDW Coeff of Frieda 13.1, Plt Count 284, MPV 10.7, Immature Gran % (Auto) 0.300, Neut % (Auto) 69.2, Lymph % (Auto) 13.9 L, [place] % (Auto) 15.5 H, Eos % (Auto) 0.8, Baso % (Auto) 0.3, Absolute Neuts (auto) 6.1, Absolute Lymphs (auto) 1.23, Nucleated RBC % 0, Sodium 135 L, Potassium 3.5, Chloride 103, Carbon Dioxide 21.0, Anion Gap 11, BUN 12, C reatinine 0.62 L, Estim Creat Clear Calc 99.92, Est GFR (MDRD) Af Amer 172, Est GFR (MDRD) Non-Af 142, BUN/Creatinine Ratio 19.3, Glucose 73 L, Hemoglobin A1c 5.1, Calcium 7.7 L, Total Bilirubin 0.70, AST 12 L, ALT 13 L, Alkaline Phosphatase 62, Total Protein 5.8 L, Albumin 2.5 L, Globulin 3.3, A lbumin/Globulin Ratio 0.8 L 06/07/24 12:42: POC Glucose 72 L Micro: Microbiology 06/06/24 02:59 Urine Catheter - Bowman Urine Culture - Preliminary GNR lactose program checker 06/06/24 18:40 Mucosa - Nose Respiratory Panel (PCR) - Final 06/06/24 02:59 Urine Catheter - Bowman Legionella Antigen - Final 06/06/24 02:59 Urine Catheter - Bowman Streptococcus pneumoniae Antigen (M - Final Radiography Diagnostic Testing: Radiology Impression Chest CT 06/06/24 15:00 IMPRESSION: 1.1 cm cavitated nodule at the left lung base. Three-month follow-up is recommended. Findings suggestive of scarring at the lung bases with calcified pleural plaques on the right side. Electronically Signed: Kingsley Butler MD at 15:19 EDT , KUB X-Ray 06/07/24 05:55 IMPRESSION: Dilated small bowel consistent with small bowel obstruction, slightly improved as compared to the prior exam. Electronically Signed: Damian Moon DO at 6:28 EDT , Physical Exam Const alert, oriented x3 and no apparent distress Constitutional Narrative: frail General Appearance: cooperative HEENT normocephalic, head/scalp atraumatic and oropharynx normal Mouth: dry mucous membranes Eyes PERRL and EOMs intact bilaterally Neck no lymphadenopathy and supple Lymph Lymphatic: no lymphadenopathy noted and no lymphedema noted Resp Resp Narrative: diminished breath sounds bibasally, no wheezes or crackles. on room air. Cardio regular rate, regular rhythm, S1 normal heart sound, S2 normal heart sound and no murmurs GI GI Narrative: NG tube in situ; abdomen mildly distended, minimal bowel sounds, no guarding or rebound tenderness. NG tube draining bilious fluid. Extremity normal capillary refill, no clubbing, cyanosis or edema and no calf tenderness General Extremity: no tenderness to palpation of joints or extremities Skin General Skin Exam: no breakdown Neuro CN's II-XII intact bilaterally, no focal motor deficits and deep tendon reflexes 2+ bilaterally Motor Exam: strength 5/5 throughout and general weakness Psych thought process normal and cooperative Appearance: appropriate Assessment & Plan Assessment/Plan (1) Complete obstruction of small intestine: PLAN: Plan #Small bowel obstruction * Still not passing gas. CT of the abdomen done showed complete small bowel obstruction. * NG tube in situ. General surgery on board. For Gastrografin study today. * Continue gentle hydration with IV fluids. Keep n.p.o. * Accepted at [facility] pending bed availability. * KUB this morning showed dilated small bowel consistent with small bowel obstruction, slightly improved as compared to prior exam. #Acute complicated UTI * Has a history of chronic indwelling Bowman catheter with neurogenic bladder. * On IV meropenem based on previous culture results. * urine culture pending * #Left lower lobe cavitary lesion with layering fluid * this was an incidental finding of CT abdomen and pelvis, concerning for fungal vs mycobacterial infetion. However, there was low suspicion for mycobacterial infection as he had not had any weight loss or night sweats. * started on IV vancomycin and meropenem empirically * will consult ID * sputum culture ordered. Respiraory panel also ordered * #Acute on chronic hyponatremia: * resolved. Sodium is 135. Was 121 on admission. * Continue gentle hydration with iVF due to SBO. * I do not think there is a need for tolvaptan to bring down the sodium now as he does have chronic hyponatremia. #History of normal pressure hydrocephalus * has a history of functional paraplegia * has a HOISTER shunt in place * n baclofen, but that is now on hold due to patient having NG tube in situ. * #DVT prophylaxis: lovenox * Charges/Coding Visit Charges Inpatient E&M: 42312 [facility] Hosp L3
--- NOTE | 2024-06-07 14:42 | CON.PCM.ID_ITS ---
Assessment & Plan Assessment/Plan (1) Cavitating mass in left lower lung lobe: PLAN: No clinical signs of active infection at this time. Small cavitary lesion in the left lower lobe unclear etiology. Recommend to follow CT scan of the chest in 3 to 6 months. If the lesion does increase in size would recommend a diagnostic bronchoscopy. Patient does have a chronic indwelling Bowman catheter with persistent bacteriuria, will discontinue vancomycin and meropenem at this time HPI Consult Data Date of Consult: 06/07/24 HPI Narrative Reason for Consultation: Cavitary lung lesion with left lower lobe HPI Narrative: JIAN ALTAMIRANO, is a 58 M who presents multiple comorbidities including seizure disorder with underlying hydrocephalus, neurogenic bladder with a chronic indwelling Bowman catheter who was recently admitted found to have an abnormal CT scan involving his left lower lung. Patient currently has NG tube in place. No documented fevers. I did review his CT scan of the chest that shows a small 1.1 cm cavitary lesion. In talking the patient he denies any significant phlegm production. No hemoptysis. No pleuritic chest pain. No fevers at home. Denies any night sweats. Currently on vancomycin plus meropenem [facility] Medical History COVID-19 Complicated UTI (urinary tract infection) Hydrocephalus Hyponatremia Chronic indwelling Bowman catheter Chronic intestinal pseudo-obstruction BPH (benign prostatic hyperplasia) Chronic hyponatremia Normal pressure hydrocephalus Bladder stones Bladder diverticulum Inguinal hernia Catheter-associated urinary tract infection Hyponatremia Hypertension Seizures Gastroparesis Ileus Chronic indwelling Bowman catheter Hydrocephalus History of urinary retention Home Medications ?Medication ?Instructions ?Recorded ?Last Taken ?Type baclofen 5 mg tablet 5 mg PO TID MUSCLE SPASMS 07/21/22 02/20/23 History linaclotide 290 mcg capsule 290 mcg PO DAILY IRRITABLE BOWELS 08/09/23 Unknown History (Linzess) prucalopride 2 mg tablet 2 mg PO DAILY CHRONIC CONSTIPATION 08/09/23 Unknown History (Motegrity) metoclopramide HCl 5 mg tablet 5 mg PO Q6H PRN nausea and vomiting 09/20/23 Unknown History (Reglan) bisacodyl 10 mg rectal suppository 10 mg [place] DAILY PRN Constipation #0 09/22/23 Unknown Rx ea Allergy/AdvReac Type Severity Reaction Status Date / Time Iodinated Contrast Media Allergy Anaphylaxis Verified 06/06/24 01:10 (Iodinated Contrast Media - IV Dye) nitrofurantoin AdvReac Upset Verified 06/06/24 01:10 Stomach Family History (Updated 06/06/24 @ 15:[address] Nikki Celestin MD) Father Heart disease Kidney stones Prostate disease Hypertension Brother Kidney stones Mother Cancer Hypertension Peptic ulcer disease Surgical History CHIP MACHINE OPERATOR (ventriculoperitoneal) shunt status S/P release of urethral stricture S/P CHIP MACHINE OPERATOR shunt Social History household members: family Smoking Status: Never smoker alcohol intake: never substance use type: does not use ROS ROS Narrative As stated in history of present illness others negative Physical Exam Narrative Alert and responsive does not appear acutely ill lungs are clear heart exam S1- S2 abdomen soft. Indwelling Bowman catheter is in place Lab / Micro Data 06/07/24 06:18 06/07/24 06:18 Labs: Laboratory Results - last 24 hr 06/06/24 17:40: MRSA (PCR) Negative 06/07/24 06:18: WBC 8.9, RBC 4.01 L, Hgb 11.8 L, Hct 36.0 L, MCV 89.8 D, MCH 29.4, MCHC 32.8 D, RDW Std Deviation 43.8, RDW Coeff of Frieda 13.1, Plt Count 284, MPV 10.7, Immature Gran % (Auto) 0.300, Neut % (Auto) 69.2, Lymph % (Auto) 13.9 L, [place] % (Auto) 15.5 H, Eos % (Auto) 0.8, Baso % (Auto) 0.3, Absolute Neuts (auto) 6.1, Absolute Lymphs (auto) 1.23, Nucleated RBC % 0, Sodium 135 L, Potassium 3.5, Chloride 103, Carbon Dioxide 21.0, Anion Gap 11, BUN 12, C reatinine 0.62 L, Estim Creat Clear Calc 99.92, Est GFR (MDRD) Af Amer 172, Est GFR (MDRD) Non-Af 142, BUN/Creatinine Ratio 19.3, Glucose 73 L, Hemoglobin A1c 5.1, Calcium 7.7 L, Total Bilirubin 0.70, AST 12 L, ALT 13 L, Alkaline Phosphatase 62, Total Protein 5.8 L, Albumin 2.5 L, Globulin 3.3, A lbumin/Globulin Ratio 0.8 L 06/07/24 12:42: POC Glucose 72 L Micro: Microbiology 06/06/24 02:59 Urine Catheter - Bowman Urine Culture - Preliminary GNR lactose railroad carman 06/06/24 18:40 Mucosa - Nose Respiratory Panel (PCR) - Final 06/06/24 02:59 Urine Catheter - Bowman Legionella Antigen - Final 06/06/24 02:59 Urine Catheter - Bowman Streptococcus pneumoniae Antigen (M - Final Imaging Radiology Impression Chest CT 06/06/24 15:00 IMPRESSION: 1.1 cm cavitated nodule at the left lung base. Three-month follow-up is recommended. Findings suggestive of scarring at the lung bases with calcified pleural plaques on the right side. Electronically Signed: Kingsley Butelr MD at 15:19 EDT , KUB X-Ray 06/07/24 05:55 IMPRESSION: Dilated small bowel consistent with small bowel obstruction, slightly improved as compared to the prior exam. Electronically Signed: Damian Moon DO at 6:28 EDT ,
[2024-06-07] MEDS: Bisacodyl 10 MG Suppository RC (18:24)
[2024-06-07] MEDS: Lactated Ringers 1,000 ML 100 ML IV (19:51)
[2024-06-08 02:00] VITALS: BP 146/91; PULSE 88; RESP 16; TEMP 37.1; O2SAT 96
[2024-06-08] MEDS: Lactated Ringers 1,000 ML 100 ML IV (05:52)
[2024-06-08 06:00] VITALS: BMI 21.4
[2024-06-08 06:40] LABS: Absolute Lymphocyte Count 1.15 X10^3/uL (0.83-4.51); Basophil# 0.03 X10^3/uL; Basophil% 0.4 % (0-1); Eosinophil# 0.09 X10^3/uL; Eosinophils% 1.2 % (0-5); Hematocrit 34.2 % (40-54); Hemoglobin 11.3 g/dL (13.0-16.5); Lymphocyte # 1.15 X10^3/ul (0.83-4.51); Lymphocyte % 15.3 % (19-41); Mean Corpuscular Hgb 29.2 pg (27.0-32.0); Mean Corpuscular Volume 88.4 fL (80-94); Mean Platelet Vol. 9.6 fl (6.2-12.0); Monocyte# 1.21 X10^3/uL; Monocyte% 16.1 % (0-10); NRBC Flagged by Analyzer 0 % (0-5); Neutrophil # 5.03 X10^3/uL (2.7-7.7); Neutrophil % 66.7 % (47-70); Platelet Count 309 K/mm3 (150-450); RBC Distribution Width CV 12.9 % (11.6-14.6); RBC Distribution Width SD 41.8 fl (35.1-43.9); Red Blood Count 3.87 M/mm3 (4.6-6.2); White Blood Count 7.5 K/mm3 (4.4-11.0)
[2024-06-08 07:15] LABS: Anion Gap 11 (5-15); BUN 6 mg/dL (7-18); BUN/Creat Ratio 10.8 RATIO (10-20); Calcium,Total 8.2 mg/dL (8.5-10.1); Chloride 104 mmol/L (98-107); Creatinine, Serum 0.55 mg/dL (0.70-1.30); EST Glomerular Filtration Rate 162 mL/min (>60); Est Glom Filt Rate - Afr Amer 196 mL/min (>60); Estimated Creatinine Clearance 116.67 ml/min; Glucose 76 mg/dL (74-106); Potassium 3.3 mmol/L (3.5-5.1); Sodium Level 134 mmol/L (136-145)
[2024-06-08 07:48] VITALS: O2SAT 96
[2024-06-08] MEDS: Potassium Chloride 10mEq/100mL 10 MEQ/100 ML IV.SOLN. 100 MEQ IV BOLUS ×4 (08:18→12:21)
[2024-06-08] MEDS: 0.9% Normal Saline (250mL Bag) 250 ML 15 ML IV (08:18)
[2024-06-08 09:15] VITALS: BP 140/79; PULSE 89; RESP 16; TEMP 37.1; O2SAT 97
[2024-06-08] MEDS: Pantoprazole Sodium 40 MG in 0.9% Normal Saline (100mL MB+) 100 ML 330 MG IV ×2 (09:40→21:48)
[2024-06-08] MEDS: Enoxaparin 40 MG/0.4 ML Syringe SC (09:42)
[2024-06-08] MEDS: Menthol/Lanolin/Calamine/Znox 113 GM Tube 1 APPLIC TOPICAL ×2 (09:43→21:49)
--- NOTE | 2024-06-08 10:01 | PN_ITS ---
Subjective Subjective Patient seen and examined. He had no active complaints. Patient told me that he had some suppositories inserted but he did not have any bowel movements. However his nurse tells me that he did have 2 bowel movements overnight. NG tube remains in situ. Review of systems otherwise negative. Objective Data Objective Data Vital Signs: Vital Signs Temp Pulse Resp BP Pulse Ox O2 Del Method 98.8 F 89 16 140/79 H 97 Room Air 06/08/24 09:15 06/08/24 09:15 06/08/24 09:15 06/08/24 09:15 06/08/24 09:15 06/08/24 09:15 Oxygen Delivery Method Room Air Weight: 121 lb 4.068 oz Body Mass Index (BMI) 21.4 Intake & Output: Intake and Output for Last 24 Hours 06/06/24 06/07/24 06/08/24 23:59 23:59 23:59 Intake Total 3926.82 / 4051.82 3686.92 / 3686.92 1260 / 1260 Output Total 1999 / 2650 2650 / 3900 2049 / 2049 Balance 1926.82 / 1401.82 1036.92 / -213.08 -790 / -790 Lab / Micro Data 06/08/24 05:20 06/08/24 05:20 Labs: Laboratory Results - last 24 hr 06/07/24 12:42: POC Glucose 72 L 06/08/24 05:20: WBC 7.5, RBC 3.87 L, Hgb 11.3 L, Hct 34.2 L, MCV 88.4, MCH 29.2, MCHC 33.0, RDW Std Deviation 41.8, RDW Coeff of Frieda 12.9, Plt Count 309, MPV 9.6, Immature Gran % (Auto) 0.300, Neut % (Auto) 66.7, Lymph % (Auto) 15.3 L, M mag % (Auto) 16.1 H, Eos % (Auto) 1.2, Baso % (Auto) 0.4, Absolute Neuts (auto) 5.0, Absolute Lymphs (auto) 1.15, Nucleated RBC % 0, Sodium 134 L, Potassium 3.3 L, Chloride 104, Carbon Dioxide 19.0 L, Anion Gap 11, BUN 6 L, Creatinine 0.55 L , Estim Creat Clear Calc 116.67, Est GFR (MDRD) Af Amer 196, Est GFR (MDRD) Non- Af 162, BUN/Creatinine Ratio 10.8, Glucose 76, Calcium 8.2 L Micro: Microbiology 06/06/24 02:59 Urine Catheter - Bowman Urine Culture - Final Escherichia coli 06/06/24 18:40 Mucosa - Nose Respiratory Panel (PCR) - Final 06/06/24 02:59 Urine Catheter - Bowman Legionella Antigen - Final 06/06/24 02:59 Urine Catheter - Bowman Streptococcus pneumoniae Antigen (M - Final Physical Exam Const alert, oriented x3 and no apparent distress Constitutional Narrative: frail General Appearance: cooperative HEENT normocephalic, head/scalp atraumatic and oropharynx normal Eyes PERRL and EOMs intact bilaterally Neck no lymphadenopathy and supple Lymph Lymphatic: no lymphadenopathy noted and no lymphedema noted Resp Resp Narrative: diminished breath sounds bibasally, no wheezes or crackles. on room air. Cardio regular rate, regular rhythm, S1 normal heart sound, S2 normal heart sound and no murmurs GI GI Narrative: NG tube in situ; abdomen mildly distended, minimal bowel sounds, no guarding or rebound tenderness. NG tube draining bilious fluid. Extremity normal capillary refill, no clubbing, cyanosis or edema and no calf tenderness General Extremity: no tenderness to palpation of joints or extremities Skin General Skin Exam: no breakdown Neuro CN's II-XII intact bilaterally, no focal motor deficits and deep tendon reflexes 2+ bilaterally Motor Exam: strength 5/5 throughout and general weakness Psych thought process normal and cooperative Appearance: appropriate Assessment & Plan Assessment/Plan (1) Complete obstruction of small intestine: PLAN: Plan #Small bowel obstruction * had 2 bowel movements overnight * CT of the abdomen done showed complete small bowel obstruction on admission. * NG tube in situ. General surgery on board. * Continue gentle hydration with IV fluids. Keep n.p.o. * Accepted at [facility] Main campus pending bed availability. * KUB yesterday showed dilated small bowel consistent with small bowel obstruction, slightly improved as compared to prior exam. * management as per general surgery #Acute complicated UTI * Has a history of chronic indwelling Bowman catheter with neurogenic bladder. * On IV meropenem based on previous culture results. * urine culture growing E coli sensitive to ceftriaxone * will de-escalate antibiotics to ceftriaxone. * #Left lower lobe cavitary lesion with layering fluid * this was an incidental finding of CT abdomen and pelvis, concerning for fungal vs mycobacterial infection. However, there was low suspicion for mycobacterial infection as he had not had any weight loss or night sweats. * started on IV vancomycin and meropenem empirically * ID on board and stopped antibiotics yesterday due to no evidence of infection. * #Acute on chronic hyponatremia: * Sodium today is 134. Will monitor closely. * #Hypokalemia: Potassium is 3.3. Replace and trend. #History of normal pressure hydrocephalus * has a history of functional paraplegia * has a EDI MANAGER shunt in place * n baclofen, but that is now on hold due to patient having NG tube in situ. * #DVT prophylaxis: lovenox * Charges/Coding Visit Charges Inpatient E&M: 76897 Subs Hosp L2
[2024-06-08] MEDS: 0.9% Normal Saline (1000mL) 1,000 ML 100 ML IV (11:05)
[2024-06-08] MEDS: Ceftriaxone 1 GM/50 ML BAG IV (12:20)
[2024-06-08 12:51] LABS: Bedside Glucose 67 mg/dL (74-106)
[2024-06-08] MEDS: Dextrose 5%/0.9% NaCl 1,000 ML 125 ML IV ×2 (13:20→21:48)
[2024-06-08 13:51] VITALS: BP 139/84; PULSE 81; RESP 16; TEMP 36.8; O2SAT 97
--- NOTE | 2024-06-08 15:34 | CASEMGMT ---
NEIL EATON called [facility] to notify plan is still to transfer to [facility] notified NEIL EATON their last scheduled visit is this Tuesday06/10/24, after this the patient will no longer be a [facility]URA and will be a new patient referral.
--- NOTE | 2024-06-08 15:38 | CHAPLAIN ---
Type of Pastoral Visit _x__ Initial Visit ___ Follow-up Visit ___ On-call Visit ___ General Patient Visit ___ Spiritual Assessment ___ Family Conference ___ Bereavement ___ Rapid Response ___ Code Blue ___ Other (describe below) Pastoral Care Referral From _x__ Patient ___ Family ___ Nurse ___ Physician ___ Sustainability Coordinator ___ Job Counselor ___ Other (describe below) Sacrament/Intervention _x__ Active listening ___ Anointing ___ Yazidism ___ Bereavement ___ Communion ___ Liset exploration ___ ___ Life review ___ Prayer ___ Reconciliation ___ Sacrament of Sick _x__ Supportive presence ___ Wedding ___ Other (describe below) Pastoral Comments lots of supportive listening as this patient explained his current situation and the need for a decision about staying in [place] or going to [facility]; pt has had some good health recently and yet now has some anxiety about how this will all hospitalist nocturnist physician; lots of time given to listen and be present
[2024-06-08] MEDS: Bisacodyl 10 MG Suppository RC (16:45)
--- NOTE | 2024-06-08 18:17 | PN.SURG_ITS ---
Subjective Subjective Patient seen and examined during AM rounds and then again in the afternoon. This morning he reported improvements in his abdominal discomfort after nursing and confirmed multiple loose bowel movements overnight. Unfortunately patient denies any return of appetite. Objective Data Objective Data Vital Signs: Vital Signs Temp Pulse Resp BP Pulse Ox O2 Del Method 98.3 F 81 16 139/84 H 97 Room Air 06/08/24 13:51 06/08/24 13:51 06/08/24 13:51 06/08/24 13:51 06/08/24 13:51 06/08/24 13:51 Oxygen Delivery Method Room Air Weight: 121 lb 4.068 oz Body Mass Index (BMI) 21.4 Intake & Output: Intake and Output for Last 24 Hours 06/06/24 06/07/24 06/08/24 23:59 23:59 23:59 Intake Total 3926.82 / 4051.82 3686.92 / 3686.92 2591.67 / 2591.67 Output Total 1999 / 2650 2650 / 3900 2049 / 2049 Balance 1926.82 / 1401.82 1036.92 / -213.08 541.67 / 541.67 Lab / Micro Data 06/08/24 05:20 06/08/24 05:20 Labs: Laboratory Results - last 24 hr 06/08/24 05:20: WBC 7.5, RBC 3.87 L, Hgb 11.3 L, Hct 34.2 L, MCV 88.4, MCH 29.2, MCHC 33.0, RDW Std Deviation 41.8, RDW Coeff of Frieda 12.9, Plt Count 309, MPV 9.6, Immature Gran % (Auto) 0.300, Neut % (Auto) 66.7, Lymph % (Auto) 15.3 L, M mag % (Auto) 16.1 H, Eos % (Auto) 1.2, Baso % (Auto) 0.4, Absolute Neuts (auto) 5.0, Absolute Lymphs (auto) 1.15, Nucleated RBC % 0, Sodium 134 L, Potassium 3.3 L, Chloride 104, Carbon Dioxide 19.0 L, Anion Gap 11, BUN 6 L, Creatinine 0.55 L , Estim Creat Clear Calc 116.67, Est GFR (MDRD) Af Amer 196, Est GFR (MDRD) Non- Af 162, BUN/Creatinine Ratio 10.8, Glucose 76, Calcium 8.2 L 06/08/24 12:31: POC Glucose 67 L Micro: Microbiology 06/06/24 02:59 Urine Catheter - Bowman Urine Culture - Final Escherichia coli 06/06/24 18:40 Mucosa - Nose Respiratory Panel (PCR) - Final 06/06/24 02:59 Urine Catheter - Bowman Legionella Antigen - Final 06/06/24 02:59 Urine Catheter - Bowman Streptococcus pneumoniae Antigen (M - Final Radiography Diagnostic Testing: Radiology Impression Small Bowel X-Ray 06/07/24 06:58 IMPRESSION: No evidence of the small bowel obstruction although there is evidence of small bowel dilatation suggestive of ileus pattern. Electronically Signed: Kingsley Butler MD at 13:39 EDT , Physical Exam Const oriented x3 and no apparent distress Resp normal respiratory effort GI GI Narrative: Mild persistent abdominal distention, mildly bilious output from NG tube, soft, nontender to palpation x 4 quadrants Assessment & Plan Assessment/Plan (1) Complete obstruction of small intestine: PLAN: Patient is a 58-year-old male with moderately complex past medical history inclusive of recurrent small bowel obstructions who presents with signs and symptoms of a recurrent obstruction. Patient remains clinically stable after completion of small bowel follow- through. There are no signs of obstruction on this exam, however there was delayed evacuation of the contrast once it reached the distal colon. Patient did ultimately have several bowel movements overnight. He is symptomatically improved, however his appetite is not returned and his KUB shows persistent dilation of his small bowel. With this persistent dilation I have asked nursing to continue NG tube to low intermittent wall suction. Radiology agrees that this picture is consistent with persistent ileus. Remains undetermined as to why patient develops this problem so frequently, but he is followed as an outpatient with a motility clinic. Given both this following as well as the persistent abnormalities on his radiographs I have encouraged nursing staff and primary hospitalist team to continue to seek transfer to a tertiary facility. I discussed patient's case at length with his sister and power of civil attorney. We will plan to repeat a Dulcolax suppository today to try to continue to stimulate bowel activity from below. Dr. Ruiz will be covering this weekend. Myke Diego MD General Surgery Endocrine Surgery Pager: [facility] [address] [place] [address] [address] [place] [address] Office: [phone] Charges/Coding Visit Charges Inpatient E&M: 64367 Subs Hosp L2
[2024-06-08 19:53] VITALS: O2SAT 95
[2024-06-08 20:05] VITALS: BP 148/88; PULSE 86; RESP 15; TEMP 36.9; O2SAT 97
[2024-06-09] VITALS: RESP 15
[2024-06-09 00:05] LABS: Bedside Glucose 131 mg/dL (74-106)
[2024-06-09 04:00] VITALS: BP 128/78; PULSE 75; RESP 15; TEMP 37.4; O2SAT 97
[2024-06-09 05:01] VITALS: BMI 21.5
[2024-06-09] MEDS: Dextrose 5%/0.9% NaCl 1,000 ML 125 ML IV ×2 (05:53→17:11)
[2024-06-09 06:10] LABS: Absolute Lymphocyte Count 1.46 X10^3/uL (0.83-4.51); Absolute Neutrophil Count 3.1 X10^3/uL (2.0-7.7); Basophil# 0.02 X10^3/uL; Basophil% 0.3 % (0-1); Eosinophil# 0.13 X10^3/uL; Eosinophils% 2.2 % (0-5); Hematocrit 33.3 % (40-54); Hemoglobin 11.2 g/dL (13.0-16.5); Lymphocyte # 1.46 X10^3/ul (0.83-4.51); Mean Corp Hgb Conc 33.6 g/dL (32-36); Mean Corpuscular Hgb 28.7 pg (27.0-32.0); Mean Corpuscular Volume 85.4 fL (80-94); Mean Platelet Vol. 9.8 fl (6.2-12.0); Monocyte% 18.9 % (0-10); NRBC Flagged by Analyzer 0 % (0-5); Neutrophil % 53.3 % (47-70); Platelet Count 330 K/mm3 (150-450); RBC Distribution Width CV 12.5 % (11.6-14.6); RBC Distribution Width SD 39.1 fl (35.1-43.9); White Blood Count 5.8 K/mm3 (4.4-11.0)
[2024-06-09 06:28] LABS: Bedside Glucose 141 mg/dL (74-106)
[2024-06-09 06:38] LABS: Anion Gap 7 (5-15); BUN 2 mg/dL (7-18); BUN/Creat Ratio 3.6 RATIO (10-20); Calcium,Total 8.1 mg/dL (8.5-10.1); Chloride 101 mmol/L (98-107); Creatinine, Serum 0.55 mg/dL (0.70-1.30); EST Glomerular Filtration Rate 164 mL/min (>60); Est Glom Filt Rate - Afr Amer 198 mL/min (>60); Estimated Creatinine Clearance 116.88 ml/min; Glucose 151 mg/dL (74-106); Potassium 3.1 mmol/L (3.5-5.1); Sodium Level 132 mmol/L (136-145)
[2024-06-09 07:41] VITALS: O2SAT 97
--- NOTE | 2024-06-09 08:48 | PCM.PN.SRG ---
Subjective Subjective +BM, NG in place with 550 cc overnight per nursing, canister pretty clear patient is getting flushed with 125 cc for the NG. Patient denies any abdominal pain, awaiting transfer bed to [facility] Objective Data Objective Data Vital Signs: Vital Signs Temp Pulse Resp BP Pulse Ox O2 Del Method 99.3 F H 75 15 128/78 H 97 Room Air 06/09/24 04:00 06/09/24 04:00 06/09/24 04:00 06/09/24 04:00 06/09/24 07:41 06/09/24 07:41 Oxygen Delivery Method Room Air Weight: 121 lb 7.595 oz Body Mass Index (BMI) 21.5 Intake & Output: Intake and Output for Last 24 Hours 06/07/24 06/08/24 06/09/24 23:59 23:59 23:59 Intake Total 3686.92 / 3686.92 4201.67 / 4326.67 1250 / 1250 Output Total 2650 / 3900 2600 / 3500 1500 / 1500 Balance 1036.92 / -213.08 1601.67 / 826.67 -250 / -250 Lab / Micro Data 06/09/24 05:25 06/09/24 05:25 Labs: Laboratory Results - last 24 hr 06/08/24 12:31: POC Glucose 67 L 06/08/24 23:40: POC Glucose 131 H 06/09/24 05:25: WBC 5.8, RBC 3.90 L, Hgb 11.2 L, Hct 33.3 L, MCV 85.4, MCH 28.7, MCHC 33.6, RDW Std Deviation 39.1, RDW Coeff of Frieda 12.5, Plt Count 330, MPV 9.8, Immature Gran % (Auto) 0.300, Neut % (Auto) 53.3, Lymph % (Auto) 25.0, [place] % (Auto) 18.9 H, Eos % (Auto) 2.2, Baso % (Auto) 0.3, Absolute Neuts (auto) 3.1, Absolute Lymphs (auto) 1.46, Nucleated RBC % 0, Sodium 132 L, Potassium 3.1 L, Chloride 101, Carbon Dioxide 24.0, Anion Gap 7, BUN 2 L, Creatinine 0.55 L, Estim Creat Clear Calc 116.88, Est GFR (MDRD) Af Amer 198, Est GFR (MDRD) Non-Af 164, BUN/Creatinine Ratio 3.6 L, Glucose 151 H, Calcium 8.1 L 06/09/24 05:50: POC Glucose 141 H Micro: Microbiology 06/06/24 02:59 Urine Catheter - Bowman Urine Culture - Final Escherichia coli 06/06/24 18:40 Mucosa - Nose Respiratory Panel (PCR) - Final 06/06/24 02:59 Urine Catheter - Bowman Legionella Antigen - Final 06/06/24 02:59 Urine Catheter - Bowman Streptococcus pneumoniae Antigen (M - Final Radiography Diagnostic Testing: Radiology Impression Small Bowel X-Ray 06/07/24 06:58 IMPRESSION: No evidence of the small bowel obstruction although there is evidence of small bowel dilatation suggestive of ileus pattern. Electronically Signed: Kingsley Butler MD at 13:39 EDT Reading Location ID and State: [facility] / [place] , Service support , Physical Exam Const oriented x3 and no apparent distress Resp normal respiratory effort GI GI Narrative: NG tube?NG in place output clear, soft, nontender to palpation no peritoneal signs Assessment & Plan Assessment/Plan (1) Complete obstruction of small intestine: PLAN: Patient is a 58-year-old male with moderately complex past medical history inclusive of recurrent small bowel obstructions who presents with signs and symptoms of a recurrent obstruction. Awaiting transfer bed Will check KUB, continue NG and IV fluids Dorene Ruiz M.D. Pager: [phone] [facility] [address] [place] [address], Outpatient [place], [address] [place] [address] Office: [phone] Charges/Coding Visit Charges Inpatient E&M: 55279 Subs Hosp L2
--- NOTE | 2024-06-09 08:50 | RAD_ITS ---
HISTORY: SBO. TECHNIQUE: XR Abdomen 1 View. COMPARISON: 06/07/2024. FINDINGS: LINES/TUBES: Nasogastric tube tip in the left upper quadrant at the level of the distal stomach. [employer] shunt catheter extending from the right upper quadrant to pelvis with tip in the left lower quadrant. BOWEL GAS PATTERN: Persistent gaseous distention and dilatation of small and large bowel in the midabdomen. Residual contrast throughout the colon down to the level of the rectum. FREE AIR: Not assessed on supine view. RAD/Abdomen Single View (Portable) IMPRESSION: Persistent ileus or distal obstruction. Electronically Signed: Marce Macedo MD at 10:59 EDT ,
[2024-06-09] MEDS: Pantoprazole Sodium 40 MG in 0.9% Normal Saline (100mL MB+) 100 ML 330 MG IV ×2 (09:15→21:10)
[2024-06-09] MEDS: Menthol/Lanolin/Calamine/Znox 113 GM Tube 1 APPLIC TOPICAL ×2 (09:16→21:11)
[2024-06-09] MEDS: Enoxaparin 40 MG/0.4 ML Syringe SC (09:18)
[2024-06-09] MEDS: 0.9% Saline Lock 10 ML Syringe IV (09:23)
[2024-06-09 09:25] VITALS: BP 141/81; PULSE 84; RESP 18; TEMP 36.7; O2SAT 94
--- NOTE | 2024-06-09 09:57 | PN_ITS ---
Subjective Subjective Patient seen and examined. He has no active complaints today. Review of systems is otherwise negative. He says he had some loose bowel movement overnight. Output from NG tube is now clear. Objective Data Objective Data Vital Signs: Vital Signs Temp Pulse Resp BP Pulse Ox O2 Del Method 98.0 F 84 18 141/81 H 94 Room Air 06/09/24 09:25 06/09/24 09:25 06/09/24 09:25 06/09/24 09:25 06/09/24 09:25 06/09/24 09:25 Oxygen Delivery Method Room Air Weight: 121 lb 7.595 oz Body Mass Index (BMI) 21.5 Intake & Output: Intake and Output for Last 24 Hours 06/07/24 06/08/24 06/09/24 23:59 23:59 23:59 Intake Total 3686.92 / 3686.92 4201.67 / 4326.67 1937.5 / 1937.5 Output Total 2650 / 3900 2600 / 3500 1500 / 1500 Balance 1036.92 / -213.08 1601.67 / 826.67 437.5 / 437.5 Lab / Micro Data 06/09/24 05:25 06/09/24 05:25 Labs: Laboratory Results - last 24 hr 06/08/24 12:31: POC Glucose 67 L 06/08/24 23:40: POC Glucose 131 H 06/09/24 05:25: WBC 5.8, RBC 3.90 L, Hgb 11.2 L, Hct 33.3 L, MCV 85.4, MCH 28.7, MCHC 33.6, RDW Std Deviation 39.1, RDW Coeff of Frieda 12.5, Plt Count 330, MPV 9.8, Immature Gran % (Auto) 0.300, Neut % (Auto) 53.3, Lymph % (Auto) 25.0, [place] % (Auto) 18.9 H, Eos % (Auto) 2.2, Baso % (Auto) 0.3, Absolute Neuts (auto) 3.1, Absolute Lymphs (auto) 1.46, Nucleated RBC % 0, Sodium 132 L, Potassium 3.1 L, Chloride 101, Carbon Dioxide 24.0, Anion Gap 7, BUN 2 L, Creatinine 0.55 L, Estim Creat Clear Calc 116.88, Est GFR (MDRD) Af Amer 198, Est GFR (MDRD) Non-Af 164, BUN/Creatinine Ratio 3.6 L, Glucose 151 H, Calcium 8.1 L 06/09/24 05:50: POC Glucose 141 H Micro: Microbiology 06/06/24 02:59 Urine Catheter - Bowman Urine Culture - Final Escherichia coli 06/06/24 18:40 Mucosa - Nose Respiratory Panel (PCR) - Final 06/06/24 02:59 Urine Catheter - Bowamn Legionella Antigen - Final 06/06/24 02:59 Urine Catheter - Bowman Streptococcus pneumoniae Antigen (M - Final Radiography Diagnostic Testing: Radiology Impression Small Bowel X-Ray 06/07/24 06:58 IMPRESSION: No evidence of the small bowel obstruction although there is evidence of small bowel dilatation suggestive of ileus pattern. Electronically Signed: Kingsley Butler MD at 13:39 EDT Reading Location ID and State: [facility] / [place] , Service support , Physical Exam Const alert, oriented x3 and no apparent distress Constitutional Narrative: frail General Appearance: cooperative HEENT normocephalic, head/scalp atraumatic and oropharynx normal Eyes PERRL and EOMs intact bilaterally Neck no lymphadenopathy and supple Lymph Lymphatic: no lymphadenopathy noted and no lymphedema noted Resp Resp Narrative: diminished breath sounds bibasally, no wheezes or crackles. on room air. Cardio regular rate, regular rhythm, S1 normal heart sound, S2 normal heart sound and no murmurs GI GI Narrative: NG tube in situ; abdomen mildly distended, few bowel sounds, no guarding or rebound tenderness. NG tube now draining fluid. Extremity normal capillary refill, no clubbing, cyanosis or edema and no calf tenderness General Extremity: no tenderness to palpation of joints or extremities Skin General Skin Exam: no breakdown Neuro CN's II-XII intact bilaterally, no focal motor deficits and deep tendon reflexes 2+ bilaterally Motor Exam: strength 5/5 throughout and general weakness Psych thought process normal and cooperative Appearance: appropriate Assessment & Plan Assessment/Plan (1) Complete obstruction of small intestine: PLAN: Plan #Small bowel obstruction * CT of the abdomen done showed complete small bowel obstruction on admission. * NG tube in situ. General surgery on board. * Continue gentle hydration with IV fluids. continie n.p.o. * Accepted at [facility] Main [place] pending bed availability. * KUB yesterday showed dilated small bowel consistent with small bowel obstruction, slightly improved as compared to prior exam. * management as per general surgery #Acute complicated UTI * Has a history of chronic indwelling Bowman catheter with neurogenic bladder * urine culture growing E coli sensitive to ceftriaxone * now on IV ceftriaxone * #Left lower lobe cavitary lesion with layering fluid * this was an incidental finding of CT abdomen and pelvis, concerning for fungal vs mycobacterial infection. However, there was low suspicion for mycobacterial infection as he had not had any weight loss or night sweats. * started on IV vancomycin and meropenem empirically * ID on board and stopped antibiotics yesterday due to no evidence of infection. * #Acute on chronic hyponatremia: * Sodium today is 132. Will monitor closely. * #Hypokalemia: Potassium is 3. Will replace and trend. #History of normal pressure hydrocephalus * has a history of functional paraplegia * has a BLOCK OUT MACHINE OPERATOR shunt in place * n baclofen, but that is now on hold due to patient having NG tube in situ. * #DVT prophylaxis: lovenox * Charges/Coding Visit Charges Inpatient E&M: 56304 Subs Hosp L2
[2024-06-09] MEDS: Ceftriaxone 1 GM/50 ML BAG IV (10:26)
[2024-06-09] MEDS: Potassium Chloride 10mEq/100mL 10 MEQ/100 ML IV.SOLN. 100 MEQ IV BOLUS ×4 (11:45→16:55)
--- NOTE | 2024-06-09 11:50 | NURSING ---
1st bag of the Krider running. This RN checked compatibility and potassium chloride is compatible with Dextrose 5% 0.9NS thats also running.
[2024-06-09 11:59] LABS: Bedside Glucose 120 mg/dL (74-106)
[2024-06-09] MEDS: Bisacodyl 10 MG Suppository RC (14:42)
[2024-06-09 17:32] LABS: Bedside Glucose 133 mg/dL (74-106)
[2024-06-09] MEDS: PRUCALOPRIDE SUCCINATE 2 MG TABLET PO (18:30)
[2024-06-09 18:38] VITALS: BP 166/98; PULSE 76; RESP 18; TEMP 36.8; O2SAT 99
--- NOTE | 2024-06-09 18:46 | NURSING ---
SBP is 166. This RN wanted to give prn Apresoline IV per protocol and pts sister stated, who ordered that. Sister got defensive. I dont want him to have that. Stated that his bp gets high when his bowels get in trouble. This RN asked pt since he is A&OX3 what he wanted to do. Pt agreed with sister and did not want the apresoline. Sister also wanted to put up all four of his side rails. This RN told her that it would be considered a restraint. Pt sister asked when that happened b/c she never heard that. Education given. x3 side rails up at this time.
[2024-06-09 21:28] VITALS: BP 139/88; PULSE 74; RESP 16; TEMP 36.6; O2SAT 99
[2024-06-10] MEDS: Dextrose 5%/0.9% NaCl 1,000 ML 125 ML IV ×3 (01:04→17:51)
[2024-06-10 05:02] VITALS: BMI 21.9
[2024-06-10 05:15] VITALS: BP 121/73; PULSE 72; RESP 16; TEMP 36.6; O2SAT 98
[2024-06-10 06:28] LABS: Absolute Lymphocyte Count 1.37 X10^3/uL (0.83-4.51); Absolute Neutrophil Count 2.4 X10^3/uL (2.0-7.7); Basophil# 0.02 X10^3/uL; Basophil% 0.4 % (0-1); Eosinophil# 0.12 X10^3/uL; Eosinophils% 2.5 % (0-5); Hematocrit 33.3 % (40-54); Hemoglobin 11.4 g/dL (13.0-16.5); Lymphocyte # 1.37 X10^3/ul (0.83-4.51); Mean Corp Hgb Conc 34.2 g/dL (32-36); Mean Corpuscular Hgb 29.2 pg (27.0-32.0); Mean Corpuscular Volume 85.2 fL (80-94); Mean Platelet Vol. 9.8 fl (6.2-12.0); Monocyte# 0.82 X10^3/uL; Monocyte% 17.3 % (0-10); NRBC Flagged by Analyzer 0 % (0-5); Neutrophil # 2.38 X10^3/uL (2.7-7.7); Neutrophil % 50.4 % (47-70); POSITIVE MORPHOLOGY YES; Platelet Count 345 K/mm3 (150-450); RBC Distribution Width CV 12.5 % (11.6-14.6); RBC Distribution Width SD 38.5 fl (35.1-43.9); Red Blood Count 3.91 M/mm3 (4.6-6.2); White Blood Count 4.7 K/mm3 (4.4-11.0)
[2024-06-10 06:38] LABS: Differential Indicated SCAN CRITERIA MET
[2024-06-10 06:50] LABS: Anion Gap 4 (5-15); BUN 1 mg/dL (7-18); BUN/Creat Ratio 2.1 RATIO (10-20); Chloride 103 mmol/L (98-107); Creatinine, Serum 0.47 mg/dL (0.70-1.30); EST Glomerular Filtration Rate 197 mL/min (>60); Est Glom Filt Rate - Afr Amer 239 mL/min (>60); Estimated Creatinine Clearance 139.75 ml/min; Glucose 142 mg/dL (74-106); Potassium 2.9 mmol/L (3.5-5.1); Sodium Level 135 mmol/L (136-145)
[2024-06-10] MEDS: Potassium Chloride 10mEq/100mL 10 MEQ/100 ML IV.SOLN. 100 MEQ IV BOLUS ×4 (07:48→11:34)
[2024-06-10] MEDS: Menthol/Lanolin/Calamine/Znox 113 GM Tube 1 APPLIC TOPICAL ×2 (07:48→20:44)
[2024-06-10] MEDS: Enoxaparin 40 MG/0.4 ML Syringe SC (07:49)
[2024-06-10] MEDS: 0.9% Saline Lock 10 ML Syringe IV (07:49)
[2024-06-10 08:04] VITALS: BP 123/77; PULSE 84; RESP 18; TEMP 36.5; O2SAT 95
--- NOTE | 2024-06-10 08:10 | PCM.PN.SRG ---
Subjective Subjective Patient's NG is still clear and output 300 overnight, patient did have results after an suppository and enema yesterday. Still no current transfer bed available. Objective Data Objective Data Vital Signs: Vital Signs Temp Pulse Resp BP Pulse Ox O2 Del Method 97.7 F L 84 18 123/77 H 95 Room Air 06/10/24 08:04 06/10/24 08:04 06/10/24 08:04 06/10/24 08:04 06/10/24 08:04 06/10/24 08:04 Oxygen Delivery Method Room Air Weight: 124 lb 1.924 oz Body Mass Index (BMI) 21.9 Intake & Output: Intake and Output for Last 24 Hours 06/08/24 06/09/24 06/10/24 23:59 23:59 23:59 Intake Total 4201.67 / 4326.67 3727.92 / 3727.92 475.83 / 475.83 Output Total 2600 / 3500 3075 / 3525 1150 / 1150 Balance 1601.67 / 826.67 652.92 / 202.92 -674.17 / -674.17 Lab / Micro Data 06/10/24 05:30 06/10/24 05:30 Labs: Laboratory Results - last 24 hr 06/09/24 11:35: POC Glucose 120 H 06/09/24 17:10: POC Glucose 133 H 06/10/24 05:30: WBC 4.7, RBC 3.91 L, Hgb 11.4 L, Hct 33.3 L, MCV 85.2, MCH 29.2, MCHC 34.2, RDW Std Deviation 38.5, RDW Coeff of Frieda 12.5, Plt Count 345, MPV 9.8, Immature Gran % (Auto) 0.400, Neut % (Auto) 50.4, Lymph % (Auto) 29.0, [place] % (Auto) 17.3 H, Eos % (Auto) 2.5, Baso % (Auto) 0.4, Absolute Neuts (auto) 2.4, Absolute Lymphs (auto) 1.37, Nucleated RBC % 0, Sodium 135 L, Potassium 2.9 L, Chloride 103, Carbon Dioxide 28.0, Anion Gap 4 L, BUN 1 L, Creatinine 0.47 L, Estim Creat Clear Calc 139.75, Est GFR (MDRD) Af Amer 239, Est GFR (MDRD) Non-Af 197, BUN/Creatinine Ratio 2.1 L, Glucose 142 H, Calcium 8.0 L Micro: Microbiology 06/06/24 02:59 Urine Catheter - Bowman Urine Culture - Final Escherichia coli 06/06/24 18:40 Mucosa - Nose Respiratory Panel (PCR) - Final 06/06/24 02:59 Urine Catheter - Bowman Legionella Antigen - Final 06/06/24 02:59 Urine Catheter - Bowman Streptococcus pneumoniae Antigen (M - Final Radiography Diagnostic Testing: Radiology Impression KUB X-Ray 06/09/24 08:50 IMPRESSION: Persistent ileus or distal obstruction. Electronically Signed: Marce Macedo MD at 10:59 EDT , Physical Exam Const oriented x3 and no apparent distress Resp normal respiratory effort GI GI Narrative: NG tube?NG in place output clear, soft, nontender to palpation no peritoneal signs Assessment & Plan Assessment/Plan (1) Complete obstruction of small intestine: PLAN: Patient is a 58-year-old male with moderately complex past medical history inclusive of recurrent small bowel obstructions who presents with signs and symptoms of a recurrent obstruction. Awaiting transfer bed Will check KUB, continue NG and IV fluids Continue with patient's home regimen for motility, did have results with the enema after the soapsuds did not have any results. Dorene Ruiz M.D. Pager: [phone] [facility] [address] [place] [address], [facility], [address] [place] [address] Office: [phone]
--- NOTE | 2024-06-10 08:27 | RAD_ITS ---
STUDY: XR Abdomen 1 View 06/10/2024 8:14 AM REASON FOR EXAM: Male, 58 years old. ileus TECHNIQUE: XR Abdomen 1 View COMPARISON: Study done yesterday FINDINGS: Normal visualized lung bases. There is a paralytic ileus of the small intestine with mild gaseous distention. Oral contrast fills the colon. ANALYTICAL CHEMIST shunt noted on the right side. NG tube tip visualized in the region of the stomach. There is no demonstrated free abdominal air. The visualized liver, spleen and kidneys are grossly normal in size and morphology. Normal soft tissue structures. There are diffuse degenerative changes of the visualized lumbar spine. RAD/Abdomen Single View (Portable) IMPRESSION: Since the prior study, there is been no transit of the oral contrast. This suggests slow colonic motility. The small bowel loops are unchanged in appearance and suggest an ileus. Obstruction is not excluded. Electronically Signed: Varun Lutz MD at 14:50 EDT ,
[2024-06-10 12:02] LABS: Bedside Glucose 115 mg/dL (74-106)
--- NOTE | 2024-06-10 12:19 | PN_ITS ---
Subjective Subjective Patient seen and examined. He had no complaints today and had a couple of loose bowel movements. He denied any fever, chills, chest pain, palpitations, dizziness, nausea or vomiting. Review of systems is otherwise negative. NG tube still draining some bilious fluid. General surgery wants to get an KUB today. Objective Data Objective Data Vital Signs: Vital Signs Temp Pulse Resp BP Pulse Ox O2 Del Method 97.7 F L 84 18 123/77 H 95 Room Air 06/10/24 08:04 06/10/24 08:04 06/10/24 08:04 06/10/24 08:04 06/10/24 08:04 06/10/24 08:04 Oxygen Delivery Method Room Air Weight: 124 lb 1.924 oz Body Mass Index (BMI) 21.9 Intake & Output: Intake and Output for Last 24 Hours 06/08/24 06/09/24 06/10/24 23:59 23:59 23:59 Intake Total 4201.67 / 4326.67 3727.92 / 3727.92 1748.75 / 1748.75 Output Total 2600 / 3500 3075 / 3525 1150 / 1150 Balance 1601.67 / 826.67 652.92 / 202.92 598.75 / 598.75 Lab / Micro Data 06/10/24 05:30 06/10/24 05:30 Labs: Laboratory Results - last 24 hr 06/09/24 17:10: POC Glucose 133 H 06/10/24 05:30: WBC 4.7, RBC 3.91 L, Hgb 11.4 L, Hct 33.3 L, MCV 85.2, MCH 29.2, MCHC 34.2, RDW Std Deviation 38.5, RDW Coeff of Frieda 12.5, Plt Count 345, MPV 9.8, Immature Gran % (Auto) 0.400, Neut % (Auto) 50.4, Lymph % (Auto) 29.0, [place] % (Auto) 17.3 H, Eos % (Auto) 2.5, Baso % (Auto) 0.4, Absolute Neuts (auto) 2.4, Absolute Lymphs (auto) 1.37, Nucleated RBC % 0, Sodium 135 L, Potassium 2.9 L, Chloride 103, Carbon Dioxide 28.0, Anion Gap 4 L, BUN 1 L, Creatinine 0.47 L, Estim Creat Clear Calc 139.75, Est GFR (MDRD) Af Amer 239, Est GFR (MDRD) Non-Af 197, BUN/Creatinine Ratio 2.1 L, Glucose 142 H, Calcium 8.0 L 06/10/24 11:25: POC Glucose 115 H Micro: Microbiology 06/06/24 02:59 Urine Catheter - Bowman Urine Culture - Final Escherichia coli 06/06/24 18:40 Mucosa - Nose Respiratory Panel (PCR) - Final 06/06/24 02:59 Urine Catheter - Bowman Legionella Antigen - Final 06/06/24 02:59 Urine Catheter - Bowman Streptococcus pneumoniae Antigen (M - Final Physical Exam Const alert, oriented x3 and no apparent distress Constitutional Narrative: frail General Appearance: cooperative HEENT normocephalic, head/scalp atraumatic and oropharynx normal Eyes PERRL and EOMs intact bilaterally Neck no lymphadenopathy and supple Lymph Lymphatic: no lymphadenopathy noted and no lymphedema noted Resp Resp Narrative: diminished breath sounds bibasally, no wheezes or crackles. on room air. Cardio regular rate, regular rhythm, S1 normal heart sound, S2 normal heart sound and no murmurs GI GI Narrative: NG tube in situ; abdomen mildly distended, few bowel sounds, no guarding or rebound tenderness. NG tube now draining fluid. Extremity normal capillary refill, no clubbing, cyanosis or edema and no calf tenderness General Extremity: no tenderness to palpation of joints or extremities Skin General Skin Exam: no breakdown Neuro CN's II-XII intact bilaterally, no focal motor deficits and deep tendon reflexes 2+ bilaterally Motor Exam: strength 5/5 throughout and general weakness Psych thought process normal and cooperative Appearance: appropriate Assessment & Plan Assessment/Plan (1) Complete obstruction of small intestine: PLAN: Plan #Small bowel obstruction * CT of the abdomen done showed complete small bowel obstruction on admission. * NG tube in situ. General surgery on board. * Continue gentle hydration with IV fluids. continue n.p.o. * Accepted at [facility] Main campus pending bed availability, though since he is not a surgical candidate, there may be limited utility in transferring him. * KUB yesterday showed dilated small bowel consistent with small bowel obstruction, slightly improved as compared to prior exam. * management as per general surgery * continue gentle hydration with iVF. #Acute complicated UTI * Has a history of chronic indwelling Bowman catheter with neurogenic bladder * urine culture growing E coli sensitive to ceftriaxone * now on IV ceftriaxone- day 2 of 5. * #Left lower lobe cavitary lesion with layering fluid * this was an incidental finding of CT abdomen and pelvis, concerning for fungal vs mycobacterial infection. However, there was low suspicion for mycobacterial infection as he had not had any weight loss or night sweats. * started on IV vancomycin and meropenem empirically * ID on board and stopped antibiotics yesterday due to no evidence of infection. * #Acute on chronic hyponatremia: * Sodium today is 135. * resolved * #Hypokalemia: Potassium is 2.9. Will replace and trend. Will check magnesium also. 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 * #DVT prophylaxis: lovenox * Charges/Coding Visit Charges Inpatient E&M: 62784 Subs Hosp L2
[2024-06-10] MEDS: Ceftriaxone 1 GM/50 ML BAG IV (13:04)
[2024-06-10] MEDS: Bisacodyl 10 MG Suppository RC (13:32)
[2024-06-10] MEDS: Pantoprazole Sodium 40 MG in 0.9% Normal Saline (100mL MB+) 100 ML 330 MG IV ×2 (13:44→20:40)
[2024-06-10 14:00] VITALS: BP 146/95; PULSE 74; RESP 16; TEMP 36.6; O2SAT 94
[2024-06-10 14:47] VITALS: O2SAT 94
[2024-06-10] MEDS: PRUCALOPRIDE SUCCINATE 2 MG TABLET PO (17:50)
[2024-06-10] MEDS: Phenol/Sodium Phenolate 180ML 3 SPRAY MUCOUS MEM (18:03)
[2024-06-10 18:39] LABS: Bedside Glucose 119 mg/dL (74-106)
[2024-06-10 20:56] VITALS: BP 131/90; PULSE 75; RESP 16; TEMP 36.7; O2SAT 98
[2024-06-11] MEDS: Dextrose 5%/0.9% NaCl 1,000 ML 125 ML IV (02:14)
[2024-06-11] MEDS: Phenol/Sodium Phenolate 180ML 3 SPRAY MUCOUS MEM ×2 (02:14→06:32)
[2024-06-11 02:46] VITALS: BP 119/80; PULSE 86; RESP 16; TEMP 36.9; O2SAT 95
[2024-06-11 04:58] VITALS: BMI 21.9
--- NOTE | 2024-06-11 06:47 | NURSING ---
report called to jarrell @ [facility]
--- NOTE | 2024-06-11 08:11 | PN.SURG_ITS ---
Subjective Subjective Patient is evaluated resting comfortably in bed. He denies any abdominal pain or nausea this morning. Objective Data Objective Data Vital Signs: Vital Signs Temp Pulse Resp BP Pulse Ox O2 Del Method 98.5 F 86 16 119/80 95 Room Air 06/11/24 02:46 06/11/24 02:46 06/11/24 02:46 06/11/24 02:46 06/11/24 02:46 06/11/24 02:46 Oxygen Delivery Method Room Air Weight: 123 lb 10.869 oz Body Mass Index (BMI) 21.9 Intake & Output: Intake and Output for Last 24 Hours 06/09/24 06/10/24 06/11/24 23:59 23:59 23:59 Intake Total 3727.92 / 3727.92 3560.83 / 3560.83 677.92 / 677.92 Output Total 3075 / 3525 3700 / 3700 1050 / 1050 Balance 652.92 / 202.92 -139.17 / -139.17 -372.08 / -372.08 Lab / Micro Data 06/10/24 05:30 06/10/24 05:30 Labs: Laboratory Results - last 24 hr 06/10/24 11:25: POC Glucose 115 H 06/10/24 17:52: POC Glucose 119 H Micro: Microbiology 06/06/24 02:59 Urine Catheter - Bowman Urine Culture - Final Escherichia coli 06/06/24 18:40 Mucosa - Nose Respiratory Panel (PCR) - Final 06/06/24 02:59 Urine Catheter - Bowman Legionella Antigen - Final 06/06/24 02:59 Urine Catheter - Bowman Streptococcus pneumoniae Antigen (M - Final Radiography Diagnostic Testing: Radiology Impression KUB X-Ray 06/10/24 08:27 IMPRESSION: Since the prior study, there is been no transit of the oral contrast. This suggests slow colonic motility. The small bowel loops are unchanged in appearance and suggest an ileus. Obstruction is not excluded. Electronically Signed: Varun Lutz MD at 14:50 EDT , Physical Exam GI GI Narrative: Abdomen- slight distention. Non-tender Assessment & Plan Assessment/Plan (1) Complete obstruction of small intestine: PLAN: I am following his patient in conjunction with Dr. Diego. He has independently evaluated this patient. Plan is for patient to be transferred to [facility] Main [place] to motility specialist today Patient has been accepted and bed is available Charges/Coding Visit Charges Inpatient E&M: 14625 Subs Hosp L1
--- NOTE | 2024-06-11 14:35 | DS.PCM_ITS ---
Providers Date of Admission: 06/06/24 Date of Discharge: 06/11/24 Primary Care Physician: Dr. Lyndon Sanders MD Consultations 06/06/24 17:19 Consult: General Surgery Routine Consulting Provider: Myke Diego Reason for Consult: Bowel obstruction EMERGENT Consult: No Notified: Yes Date Notified: 06/06/24 Time Notified: 15:42 Method of Notification: Verbal 06/07/24 14:27 Consult: Infectious Disease Routine Consulting Provider: Juan Miguel Castro Reason for Consult: cavitary lung lesion EMERGENT Consult: No Notified: Yes Date Notified: 06/07/24 Time Notified: 14:27 Method of Notification: Text Reason For Visit: BOWEL OBSTRUCTION, COMPLICATED UTI,LUNG CAVITARY N Diagnosis Discharge Diagnosis (1) Complete obstruction of small intestine: Status: Acute Code(s): K56.601 - Complete intestinal obstruction, unspecified as to cause Plan #Small bowel obstruction * CT of the abdomen done showed complete small bowel obstruction on admission. * NG tube in situ. General surgery on board. * Continue gentle hydration with IV fluids. continue n.p.o. * Accepted at [facility] pending bed availability, though since he is not a surgical candidate, there may be limited utility in transferring him. * KUB yesterday showed dilated small bowel consistent with small bowel obstruction, slightly improved as compared to prior exam. * management as per general surgery * continue gentle hydration with iVF. #Acute complicated UTI * Has a history of chronic indwelling Bowman catheter with neurogenic bladder * urine culture growing E coli sensitive to ceftriaxone * now on IV ceftriaxone- day 2 of 5. * #Left lower lobe cavitary lesion with layering fluid * this was an incidental finding of CT abdomen and pelvis, concerning for fungal vs mycobacterial infection. However, there was low suspicion for mycobacterial infection as he had not had any weight loss or night sweats. * started on IV vancomycin and meropenem empirically * ID on board and stopped antibiotics yesterday due to no evidence of infection. * #Acute on chronic hyponatremia: * Sodium today is 135. * resolved * #Hypokalemia: Potassium is 2.9. Will replace and trend. Will check magnesium also. 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 * #DVT prophylaxis: lovenox * Medications at Discharge Home Medications baclofen 5 mg tablet 5 mg PO TID MUSCLE SPASMS 07/21/22 linaclotide 290 mcg capsule (Linzess) 290 mcg PO DAILY IRRITABLE BOWELS 08/09/23 prucalopride 2 mg tablet (Motegrity) 2 mg PO DAILY CHRONIC CONSTIPATION 08/09/23 metoclopramide HCl 5 mg tablet (Reglan) 5 mg PO Q6H PRN nausea and vomiting 09/20/23 bisacodyl 10 mg rectal suppository 10 mg ID DAILY PRN Constipation #0 ea 09/22/23 Hospital Course Operations None Procedures None Summary of Care Provided Minutes Spent on Discharge: 55 Hospital Course: Patient is a 58-year-old male with an extensive past medical history as outlined which includes NPH with functional paraplegia and STONE POLISHER HAND shunt in place and previous history of recurrent small bowel obstruction. He was admitted through the ED on 06/06/2024 with a complaint of abdominal pain and nausea as well as dry heaving and subsequent nausea and vomiting. He also had a mild fever 100.8. He had had abdominal distention and abdominal pain though he had had a bowel movement during the day. Urinalysis showed 4+ bacteria and CT of the abdomen and pelvis showed a left lower lobe cavitary lesion with layering fluid concerning for possible fungal versus mycobacterial infection with cystic neoplasm less likely and he also had a mid small bowel obstruction with transition to decompressed bowel in the central abdomen and no evidence of perforation. She was started on IV ceftriaxone for UTI and NG tube was placed. Plan was to transfer to [facility] [place] in light of his complicated history and presence of STONE POLISHER HAND shunt but there was no bed available so he was admitted to [facility] and managed for small bowel obstruction as well as possible cavitary pneumonia. General surgery was also consulted as well as ID. Patient antibiotics were broadened to IV vancomycin and meropenem. ID reviewed him and did not think that he had any evidence of infection for the cavitary lesion and it was an incidental finding so vancomycin and meropenem were discontinued. Patient was placed on IV ceftriaxone due to UTI. Urine cultures grew E. coli sensitive to ceftriaxone. KUB done subsequently showed dilated small bowel consistent with small bowel obstruction. Patient has started having bowel movements. However NG tube remained in situ per general surgery. Patient got a bed at [facility] on 06/11/2024 and so he was transferred to the on 06/11/2024. He is to follow-up with his primary care doctor within 1 to 2 weeks Patient was seen and examined prior to transfer. He had no complaints. He was passing gas and said he had had a bowel movement the night before. Review of systems otherwise negative. Labs and vitals reviewed. Physical Exam Const alert, oriented x3 and no apparent distress Constitutional Narrative: frail General Appearance: cooperative, comfortable and well kempt HEENT normocephalic, head/scalp atraumatic, hearing grossly normal bilaterally, moist oral mucous membranes and oropharynx normal Mouth: oral and palatal mucosa normal Eyes PERRL and EOMs intact bilaterally Neck no lymphadenopathy and supple Lymph Lymphatic: no lymphadenopathy noted and no lymphedema noted Resp Resp Narrative: diminished breath sounds bibasally, no wheezes or crackles. on room air. Cardio regular rate, regular rhythm, S1 normal heart sound, S2 normal heart sound and no murmurs GI GI Narrative: NG tube in situ; abdomen mildly distended, few bowel sounds, no guarding or rebound tenderness. Extremity normal to inspection, full ROM, normal capillary refill, no clubbing, cyanosis or edema and no calf tenderness General Extremity: no tenderness to palpation of joints or extremities Skin no rashes or lesions noted and no wounds General Skin Exam: no breakdown Neuro oriented x3, CN's II-XII intact bilaterally, moves all extremities, no focal motor deficits, no sensory deficits noted and deep tendon reflexes 2+ bilaterally Sensorium / Orientation: awake and alert Motor Exam: strength 5/5 throughout and general weakness Psych thought process normal and cooperative Appearance: appropriate Weight / BMI Weight Weight: 123 lb 10.869 oz Body Mass Index (BMI) 21.9 ABG / Lab / Microbiology Data 06/10/24 05:30 06/10/24 05:30 Laboratory: Laboratory Results - last 24 hr 06/10/24 17:52: POC Glucose 119 H Microbiology: Microbiology 06/06/24 02:59 Urine Catheter - Bowman Urine Culture - Final Escherichia coli 06/06/24 18:40 Mucosa - Nose Respiratory Panel (PCR) - Final 06/06/24 02:59 Urine Catheter - Bowman Legionella Antigen - Final 06/06/24 02:59 Urine Catheter - Bowman Streptococcus pneumoniae Antigen (M - Final Radiography Diagnostic Testing: Radiology Impression KUB X-Ray 06/10/24 08:27 IMPRESSION: Since the prior study, there is been no transit of the oral contrast. This suggests slow colonic motility. The small bowel loops are unchanged in appearance and suggest an ileus. Obstruction is not excluded. Electronically Signed: Varun Lutz MD at 14:50 EDT Reading Location ID and State: [facility] / [place] , Service support , Meaningful Use Info Meaningful Use Meaningful Use Diagnoses (Choose all that apply): None applicable Ischemic Stroke Statin Dosing Therapy Reference: STATIN DOSE THERAPY REFERENCE: * Patients > 75 years receive moderate or high dose statin therapy. * Patients 75 years or YOUNGER should receive HIGH intensity statin dose unless contraindicated. You will be required to document reason for non-treatment if statin daily dose does not meet guidelines. HIGH DOSE STATIN THERAPY DAILY Atorvastatin > than or = to 40 mg Rosuvastatin > than or = to 20 mg Amlodipine + Atorvastatin > than or = to 2.5/40 mg Ezetimibe + Simvastatin 10/80 mg Simvastatin 80mg Discharge Plan Admission Admit Date/Time: 06/06/24 15:39 Primary Reason for Your Visit: small bowel obstruction Attending Provider: Conchita Rankin Primary Care Provider: Lyndon Sanders Consulting Providers: Myke Diego; Nikki Celestin; Juan Miguel Castro Discharge Orders/Prescriptions Prescriptions: No Action baclofen 5 MG tablet 5 mg PO TID Patient Comments: Hold for sedation/lethargy Linzess 290 mcg capsule 290 mcg PO DAILY Motegrity 2 mg tablet 2 mg PO DAILY metoclopramide HCl [Reglan] 5 mg tablet 5 mg PO Q6H PRN (Reason: nausea and vomiting) bisacodyl 10 mg Suppository 10 mg ID DAILY PRN (Reason: Constipation) Qty: 0 0RF Referrals / Follow Up: Lyndon Sanders MD [Primary Care Provider] - Disposition Disposition (needs filled in before D/C Order can be placed): DC/Tx to Another Type of HCF Charges/Coding Visit Charges Inpatient E&M: 48886 Disch Hosp >30min
== END 2024-06-11 08:14 | disposition short-term general hospital (02) | DRG 389 ==
LOC: ED 04:38 → MS3 16:41
PROVIDERS: Admitting Provider Family Medicine; Emergency Provider Emergency Medicine; PCP Family Medicine; Visit Provider Student in an Organized Health Care Education/Training Program
DX: K56.691 Other complete intestinal obstruction (principal); E87.1 Hypo-osmolality and hyponatremia; G91.2 (Idiopathic) normal pressure hydrocephalus; T83.511A Infection and inflammatory reaction due to indwelling urethral catheter, initial encounter; N39.0 Urinary tract infection, site not specified; E87.8 Other disorders of electrolyte and fluid balance, not elsewhere classified; G40.909 Epilepsy, unspecified, not intractable, without status epilepticus; I10 Essential (primary) hypertension; E87.6 Hypokalemia; J98.4 Other disorders of lung; Z98.2 Presence of cerebrospinal fluid drainage device; R73.9 Hyperglycemia, unspecified; N31.9 Neuromuscular dysfunction of bladder, unspecified; F44.4 Conversion disorder with motor symptom or deficit; B96.20 Unspecified Escherichia coli [E. coli] as the cause of diseases classified elsewhere; N40.0 Benign prostatic hyperplasia without lower urinary tract symptoms; Z99.3 Dependence on wheelchair; Z79.899 Other long term (current) drug therapy; Y73.8 Miscellaneous gastroenterology and urology devices associated with adverse incidents, not elsewhere classified
CPT/HCPCS: 36415; 51702; 71250; 74018; 74176; 74250; 75809; 80048; 80053; 81001; 82962; 83036; 83605; 83690; 85025; 87077; 87086; 87088; 87186; 87449; 87633; 87641; 94668; 97110; 97162; 97166; 97530; 97535; 99252; 99285; J2185; J7030; J7050; J7120; A4216; G0463; J2405

== ENCOUNTER 2025-09-21 22:30 | Emergency (ER) | payer MEDICARE, MEDICAID, SELFPAY ==
[2025-09-21 22:31] VITALS: BP 198/88; PULSE 118; RESP 22; TEMP 36.8; O2SAT 92
[2025-09-21 22:59] VITALS: BP 153/96; PULSE 80; RESP 18; TEMP 36.8; O2SAT 98; BMI 21.7
--- NOTE | 2025-09-21 22:59 | EDS_ITS ---
HPI History of Present Illness Chief Complaint: Bowman C/O Narrative Narrative: Patient was seen and examined after presenting to ED for evaluation for Bowman catheter family states that they have been unable to irrigated the last time they had any decent output was around 1700 earlier today patient is complaining of some abdominal distention. 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 Leukocytosis Acute hyponatremia Acute UTI Complete obstruction of small intestine COVID-19 Complicated UTI (urinary tract infection) Hydrocephalus Hyponatremia Chronic indwelling Bowman catheter Chronic intestinal pseudo-obstruction BPH (benign prostatic hyperplasia) Chronic hyponatremia Normal pressure hydrocephalus Bladder stones Bladder diverticulum Inguinal hernia Catheter-associated urinary tract infection Hyponatremia Hypertension Seizures Gastroparesis Ileus Chronic indwelling Bowman catheter Hydrocephalus History of urinary retention Home Medications Medication Instructions Recorded Last Taken Type baclofen 5 mg tablet 5 mg PO TID MUSCLE SPASMS 02/20/23 History linaclotide 290 mcg capsule 290 mcg PO DAILY IRRITABLE BOWELS 08/09/23 Unknown History (Linzess) prucalopride 2 mg tablet 2 mg PO DAILY CHRONIC CONSTI PATION 08/09/23 Unknown History (Motegrity) metoclopramide HCl 5 mg tablet 5 mg PO Q6H PRN nausea and vomiting 09/20/23 Unknown History (Reglan) bisacodyl 10 mg rectal suppository 10 mg MN DAILY PRN Constipation #0 09/22/23 Unknown Rx ea cefdinir 300 mg capsule 300 mg PO BID #14 caps 09/22 Unknown Rx Allergy/AdvReac Type Severity Reaction Status Date / Time Iodinated Contrast Media Allergy Anaphylaxis Verified 09/21/25 22:31 (Iodinated Contrast Media - IV Dye) nitrofurantoin AdvReac Upset Verified 09/21/25 22:31 Stomach Family History Father Heart disease Kidney stones Prostate disease Hypertension Brother Kidney stones Mother Cancer Hypertension Peptic ulcer disease Surgical History GAS USAGE METER CLERK (ventriculoperitoneal) shunt status S/P release of urethral stricture S/P GAS USAGE METER CLERK shunt Social History household members: family Smoking Status: Never smoker alcohol intake: never substance use type: does not use ROS ROS ED ROS Narrative Pertinent Positives: Abdominal distention and inability to irrigate Bowman catheter Pertinent Negatives: Fevers chills nausea vomiting diarrhea black or bloody stools blood in urine The remainder of review of systems negative unless otherwise stated in the HPI above. Systems reviewed including constitutional, psychiatric, cardiovascular, respiratory, integument, HENT, gastrointestinal. EXAM Physical Exam Narrative Exam Narrative: Afebrile hemodynamically stable although tachycardic and hypertensive does not appear toxic or in distress. Normocephalic atraumatic abdomen soft has some suprapubic discomfort on palpation mildly distended. Intact MSPs he is warm and well-perfused Const Vital Signs: 09/21/25 22:31 09/21/25 22:59 09/22/25 00:31 Temperature 98.2 F 98.2 F Temperature Source Temporal Oral Pulse Rate 118 H 80 72 Respiratory Rate 22 H 18 Blood Pressure 198/88 H 153/96 H 150/91 H Blood Pressure Mean 124 115 110 Pulse Ox 92 98 99 Oxygen Delivery Method Room Air Room Air MDM MDM MDM Narrative Medical decision making narrative: Nursing notes, triage notes, available previous documentation, and vital signs were reviewed. Any discrepancies noted were addressed. Differential Diagnoses: Could be an obstruction of some sort or dislodgment of the catheter itself we will make sure that he does have urine in fact in his bladder Interventions: Antibiotics Given: Cefdinir Fluids Given: 1 L normal saline Labs Reviewed: Patient found to have a slight hyponatremia 127 no renal insufficiency urine appears to be positive for nitrates we will go ahead and provide him with coverage which appears based off of previous sensitivities he has had various resistant pathology however his most recent urine in May 2024 showed that it was sensitive to cephalosporins Previous Documentation Reviewed: None available or applicable at this time. ED Course: Patient presenting with difficulty irrigating bladder as stated above we will go ahead and do a bladder scan will get a renal panel and if we need to swap out the Bowman we will. We ended up replacing Bowman catheter he was found to be slightly hyponatremic he was receiving IV fluids for this also found to have nitrite positive urine but based off his most recent sensitivity back in May 2024 it showed sensitivity to cephalosporins for E. coli so we will go ahead and give dose cefdinir here as well as a prescription for the same return precautions follow-up recommendations provide patient stable for discharge This note was made utilizing voice recognition software. All attempts were made to correct spelling or other errors prior to note completion. However, due to the fast-paced nature of emergency medicine, some errors may still be present. Lab Data Labs: Laboratory Results - last 24 hr 09/21/25 09/21/25 23:00 23:30 Sodium 127 L Potassium 4.4 Chloride 93 L Carbon Dioxide 22.0 Anion Gap 12 BUN 11 Creatinine 0.74 Estim Creat Clear Calc 86.61 Est GFR (MDRD) Non-Af 106 BUN/Creatinine Ratio 15.2 Glucose 104 H Calcium 8.9 Urine Color Yellow Urine Clarity Clear Urine pH 7.0 Ur Specific [place] 1.010 Urine Protein 30 H Urine Glucose (UA) Normal Urine Ketones 5 H Urine Occult Blood 150 H Urine Nitrite Positive H Urine Bilirubin Negative Urine Urobilinogen Normal Ur Leukocyte Esterase 500 H Urine RBC 0-5 SEEN Urine WBC 10-25 SEEN Ur Squamous Epith Cells 0 SEEN Other Crystals COMMENT Urine Bacteria 1+ Urine Mucus 0 SEEN Discharge Plan Triage Chief Complaint: Bowman C/O ED Provider: Linn Rudd Dx/Rx/DC Orders Clinical Impression: Bowman catheter problem, Chronic indwelling Bowman catheter, Acute UTI Instructions: ED Bowman Catheter, Care Prescriptions: New cefdinir 300 mg capsule 300 mg PO BID Qty: 14 0RF No Action baclofen 5 MG tablet 5 mg PO TID Patient Comments: Hold for sedation/lethargy Linzess 290 mcg capsule 290 mcg PO DAILY Motegrity 2 mg tablet 2 mg PO DAILY metoclopramide HCl [Reglan] 5 mg tablet 5 mg PO Q6H PRN (Reason: nausea and vomiting) bisacodyl 10 mg Suppository 10 mg MN DAILY PRN (Reason: Constipation) Qty: 0 0RF Primary Care Provider: Lyndon Sanders Referrals: Lyndon Sanders MD [Primary Care Provider, Medical] Activity Restrictions/Additional Instructions: We are going to go ahead and provide you with a course of antibiotics because your urine does appear to be somewhat infected if you are feeling worse in any way do not hesitate to return otherwise follow-up with your medical care team. Print Language: Serbian Disposition Disposition: Home, Self Care
--- OUTSIDE RECORDS SUMMARY | 2025-09-21 23:28 | XMS RPT_ITS | CCD ---
Author Organization [facility] Care Team Providers Care Cuff Stitcher Name Role Phone Clifford Estes MD Primary Care Provider Dr. Clifford Estes Primary Care Provider MD Josiah Schaffer Emergency Provider Dr. Conchita Rankin Admit Provider Dr. London Braden Attending Provider Dr. London Braden Other Provider Dr. Dorene Ruiz Other Provider Dr. Conchita Rankin Referring Provider Dr. Dorene Ruiz Attending Provider Mikey DONOVAN, Traceyoxmyriam Unavailable Mikey DONOVAN, Traceyoxmyriam Unavailable Clifford Estes MD Primary Care Provider [phone] Mikey DONOVAN, Xiaoxi Unavailable Mikey DONOVAN, Xiaoxi Unavailable Dr. Clifford Estes Primary Care Provider Dr. Abelardo Albarran Emergency Provider [phone] Dr. Gavino De Luna Admit Provider Unavailable Dr. Gavino De Luna Attending Provider Unavailable Dr. Gavino De Luna Other Provider Unavailable Dr. Chang Grant Other Provider ZOE Rivera Attending Provider Dr. Chang Grant Attending Provider Dr. Dorene Ruiz Attending Provider Mikey DONOVAN, Francisca Unavailable Clifford Estes MD Primary Care Provider Dr. Gavino De Luna Referring Provider Unavailable Dr. Maddie Vasquez Emergency Provider Dr. Sidney Hinkle Provider Dr. Sidney Hinkle Other Provider Tha, HOME MORTGAGE DISCLOSURE ACT SPECIALIST-C Beth Attending Provider Unavail able Dr. Geo Mercer Other Provider Dale HOME MORTGAGE DISCLOSURE ACT SPECIALIST, HOME MORTGAGE DISCLOSURE ACT SPECIALIST-C Blaire Attending Provider Dr. Geo Mercer Attending Provider Dr. Juan Miguel Castro Other Provider Dr. Sidney Hinkle Attending Provider Dr. Geo Mercer Attending Provider Dr. Clifford Estes Primary Care Provider Dr. Abelardo Albarran Emergency Provider Dr. Gavino De Lunait Provider Unavailable Dr. Gavino De Luna Attending Provider Unavailable Dr. Gavino De Luna Other Provider Unavailable Dr. Chang Grant Other Provider Dr. Gavino De Luna Referring Provider Unavailable ZOE Rivera Attending Provider Dr. Chang Grant Attending Provider Dr. Dorene Ruiz Attending Provider Dr. aMddie Vasquez Emergency Provider Dr. Sidney Hinkle Provider Dr. Sidney Hinlke Attending Provider Dr. Sidney Hinkle Other Provider Dr. Geo Mercer Attending Provider Dr. Geo Mercer Other Provider Dr. Juan Miguel Castro Other Provider Dr. Richard Dodd Emergency Provider Dr. Geo Mercer Admit Provider Dr. Dorene Ruiz Other Provider Dr. Parvez Moore Emergency Provider Dr. Diane Franco Attending Provider Dr. Diane Franco Admit Provider Dr. Diane Franco Other Provider Dr. Laura Kidd Other Provider Dr. Conchita Rankin Attending Provider Dr. Conchita Rankin Other Provider Dr. Kevyn Oliva Other Provider Dr. Ace Moncada Attending Provider Dr. Ace Moncada Other Provider Tommy DONOVAN, Clifford Alexis Primary Care Provider Mikey DONOVAN, Xiaoxi Unavailable Mikey DONOVAN, Xiaoxi Unavailable Dr. Clifford Estes Primary Care Provider Dr. Maddie Vasquez Emergency Provider Dr. Sidney Hinkle Admit Provider Dr. Sidney Hinkle Other Provider Dr. Geo Mercer Attending Provider Dr. Geo Mercer Other Provider Dr. Juan Miguel Castro Other Provider Dr. Dorene Ruiz Attending Provider Dr. Von Sanchez Attending Steffi vailable Dr. Von Sanchez Admitting Steffi vailable Patient, Unavailable Referring Unavailable Dr. Clifford Estes Primary Care Provider Dr. Abelardo Albarran Emergency Provider Dr. Nikki Celestin Admit Provider Dr. Nikki Celestin Other Provider Dr. Laura Kidd Other Provider Dr. Geo Mercer Attending Provider Dr. Geo Mercer Other Provider Dr. Kevyn Oliva Other Provider Landy RN, Katiana Unavailable Unavailable Adam RN, Giselle Unavailable Unavailable Dr. Jian oJse Emergency Provider Dr. Myke Diego Attending Provider Dr. Richard Palacio Admit Provider Dr. Richard Palacio Attending Provider Dr. Richard Palacio Other Provider Dr. Abdirahman Jones Emergency Provider Dr. Ace Moncada Other Provider Friend, Dr. Alfonso Attending Provider Dr. Ace Moncada Attending Provider Dr. Clifford Estes Primary Care Provider Dr. Richard Palacio Attending Provider Dr. Richard Palacio Admit Provider Dr. Richard Palacio Other Provider Dr. Ace Moncada Referring Provider Dr. Conchita Rankin Attending Provider Dr. Conchita Rankin Other Provider Dr. Clifford Estes Primary Care Provider Dr. Abdirahman Jones Emergency Provider Dr. Richard Palacio Admit Provider Dr. Richard Palacio Attending Provider Dr. Richard Palacio Other Provider Chucho, Dr. Conchita Cordero Attending Provider Chucho, Dr. Conchita Cordero Other Provider Juanis, Dr. Guajardo Emergency Provider Pena, Dr. Mancia Admit Provider Unavailabl e Pena, Dr. Mancia Other Provider Unavailabl e Sampson, Dr. Callahan Attending Provider Sampson, Dr. Callahan Other Provider Landy TREJO, Katiana Unavailable Unavailable Tommy DONOVAN, Clifford Alexis Primary Care Provider Provider MD, Ssuanne Unavailable Unavailable Provider , Susanne Unavailable Unavailable Tommy DONOVAN, Clifford Alexis Unavailable Tommy DONOVAN, Clifford Alexis Unavailable Rony TREJO, Wero Unavailable Mikey DONOVAN, Xiaaroldo Unavailable Mikey DONOVAN, Xiaoxi Unavailable Adeola SENIOR BUSINESS MANAGER.Yvette JONES Unavailable Suppan SENIOR BUSINESS MANAGER.Kyleigh JONES Unavailable Clifford Estes Attending Unavailable [place], Clifford Primary Care Unavailable Reji Woods Attending Unavailable [place], Clifford Primary Care Unavailable Koram, Conchita Consuelo Attending Unavailable Brandie, Myke Consulting Unavailable [place], Clifford Primary Care Unavailable White, Nikki L Admitting Unavailable White, Nikki L Consulting Unavailable Gloria, Juan Miguel Consulting Unavailable Koram, Conchita Consuelo Attending Unavailable White, Nikki L Admitting Unavailable Bortz, Myke Consulting Unavailable Tommy, Clifford Primary Care Unavailable White, Nikki L Consulting Unavailable Gloria, Juan Miguel Consulting Unavailable Koram, Conchita Consuelo Consulting Unavailable White, Nikki L Attending Unavailable Tommy, Clifford Primary Care Unavailable Koram, Conchita Consuelo Referring Unavailable Myke Diego Attending Unavailable Dorene Ruiz Attending Unavailable Jane Rivera Attending Unavailable Tommy, Clifford Attending Unavailable Tommy, Clifford Primary Care Unavailable Suppan SENIOR BUSINESS MANAGER.KAREN, Kyleigh A Unavailable MARIAH-RAMANDEEPEJY Referring Unavailable BREA FLORENTINO Attending Unavailable [facility] Unavailable [facility] Unavailable MARIAH-RAMANDEEP, BREA Referring Unavailable [facility] Unavailable MARIAH-RAMANDEEP, BREA Referring Unavailable [facility] Unavailable SUPPELIZABETH, KYLEIGH Referring Unavailable [facility] Unavailable SUPPAN, KYLEIGH Referring Unavailable [facility] Unavailable SUPPPADMA JOHNSONLINE Attending Unavailable Allergies Allergy Classification Reported Allergen(s) Allergy Type Date of Onset Reaction(s) Facility Anti-Epileptic Agents (1 source) Phenytoin Drug Allergy 6 [facility] Contrast Media (1 source) Contrast media Substance Allergy 0 Anaphylaxis [facility] Nitrofurantoin (2 sources) Nitrofurantoin Drug Allergy 0 GI Upset [facility] (20 sources) Contrast media; Translations: [CONTRAST DYE] Drug Allergy 0 Anaphylaxis [facility] Work Phone: (20 sources) Nitrofurantoin; Translations: [NITROFURANTOIN MACROCRYSTALLINE] Drug Allergy 0 GI Upset [facility] Work Phone: (20 sources) Nitrofurantoin; Translations: [NITROFURANTOIN] Drug Allergy 1 GI Upset [facility] (20 sources) Phenytoin; Translations: [PHENYTOIN] Drug Allergy 6 [facility] Work Phone: (20 sources) Fd And C Blue No.1; Translations: [FD AND C BLUE NO.1] Propensity to adverse reactions 6 [facility] Work Phone: (20 sources) Iodinated Contrast Media; Translations: [Iodinated Contrast Media] Allergy to substance 1 Anaphylaxis [facility] (1 source) Nitrofurantoin Drug Allergy 4 [facility] Repository Medications Current Medications Medication Drug Class(es) Dates Sig (Normalized) Sig (Original) baclofen 5 mg oral tablet (20 sources) gamma-Aminobutyr ic Acid-ergic Agonist Start: 12-11-2020 End: 09-06-2025 take 1 tablet by mouth three times daily baclofen 5 mg tablet Indications: Spina bifida with hydrocephalus, unspecified spinal region (HCC) Take 1 tablet by mouth three times a day. 270 Each 3 09/06/2024 09/06/2025 Active Comment on above: Take 1 tablet by rosales th three times daily. Take 1 tablet by rosales th three times a day. belladonna alkaloids 16.2 mg / opium 30 mg rectal suppository (5 sources) Start: 09-19-2023 End: 09-26-2023 belladonna-opium (B AND O 15-A) 16.2-30 mg suppository Indications: Bladder spasm 30 mg by RECTAL route two times a day as needed for pain for up to 7 days. 14 Suppository 0 09/19/2023 09/26/2023 Active Comment on above: 30 mg by RECTAL rout e two times a day as needed for pain for up to 7 days. bisacodyl 10 mg rectal suppository (20 sources) Stimulant Laxative Start: 01-24-2022 take 10 mg rectal route once daily as needed for constipation bisacodyl (DULCOLAX) 10 mg supp Bisacodyl Active 10 MG rectally daily NEEDED for constipation 01/24/2022 Active Start: 01-24-2022 End: 05-19-2022 bisacodyl (DULCOLAX) 10 mg s upp Bisacodyl Active 10 MG rectally daily NEEDED for constipation 0 01/24/2022 Active Comment on above: 1 Suppository by REC REGGIE route twice daily. Bisacodyl Active 10 MG RC NEEDED 0 January 24, 2022 10:15am OTC cefdinir 300 mg oral capsule (12 sources) Cephalosporin Antibacterial Start: 02-24-2023 take 300 mg by mouth twice daily Cefdinir Active 300 MG PO TWICE A DAY February 24, 2023 12:00am Start: 07-25-2022 End: 08-24-2022 take 1 capsule by mouth twice daily cefdinir (OMNICEF) 300 mg capsule Take 300 mg by mouth twice daily. 0 07/25/2022 08/24/2022 Discontinued (Other) Comment on above: Take 300 mg by mouth twice daily. cefuroxime 500 mg oral tablet (3 sources) Cephalosporin Antibacterial Start: 3 take 500 mg by mouth twice daily Cefuroxime Axetil Active 500 MG PO TWICE A DAY November 01, 2023 1:00am cephalexin 500 mg oral capsule (12 sources) Cephalosporin Antibacterial Start: 5 End: 5 take 1 capsule by mouth four times daily cephALEXin (KEFLEX) 500 mg capsule Take 1 capsule by mouth four times daily for 5 days. 20 capsule 04/26/2025 05/01/2025 Active Start: 01-23-2024 End: 02-02-2024 take 1 capsule by mouth four times daily cephALEXin (KEFLEX) 500 mg capsule Take 1 capsule by mouth four times daily for 10 days. 40 capsule 0 01/23/2024 01/27/2024 Discontinued Start: 11-28-2023 take 500 mg by mouth every six hours Cephalexin Active 500 MG PO EVERY 6 HOURS 10 06November 28, 2023 8:45pm Start: 01-27-2023 End: 02-03-2023 take 1 capsule by mouth four times daily cephALEXin (KEFLEX) 250 mg capsule Indications: Urine abnormality Take 1 capsule by mouth four times daily for 7 days. 28 capsule 0 01/27/2023 02/03/2023 Active Start: 10-29-2022 take 500 mg by mouth every six hours Cephalexin Active 500 MG PO EVERY 6 HOURS October 29, 2022 1:00am Start: 07-05-2022 take 500 mg by mouth every twelve hours Cephalexin Active 500 MG PO EVERY 12 HOURS July 05, 2022 12:00am Comment on above: Take 1 capsule by [facility] four times daily for 7 days. Take 1 capsule by [facility] four times daily for 10 days. doxycycline monohydrate 100 mg oral capsule (2 sources) Tetracycline-class Drug Start: 03-07-2022 take 100 mg by mouth twice daily Doxycycline Monohydrate Active 100 MG PO TWICE A DAY March 07, 2022 9:50pm linaclotide 0.29 mg oral capsule (20 sources) Guanylate Cyclase-C Agonist Start: 10-04-2022 End: 05-13-2025 linaCLOtide (LINZESS) 290 mcg capsule [The details of the medication are not available because there are pending changes by a home health clinician.] 90 capsule 2 05/13/2025 Active Start: 06-11-2022 End: 12-08-2022 take 1 capsule by mouth once daily, then take 6 capsules by mouth in the morning linaclotide (LINZESS) 145 mcg capsule Indications: Chronic constipation Take 1 capsule by mouth DAILY (6 AM). 90 capsule 1 06/11/2022 10/04/2022 Discontinued Start: 07-31-2021 End: 08-09-2023 take 1 capsule by mouth once daily Linaclotide (Linzess) 72 mcg capsule Discontinued 290 MCG PO DAILY July 31, 2021 12:00am August 09, 2023 10:14am Comment on above: Take 1 capsule by mo uth once daily. Administer on an empty stomach. Swallow whole; DO NOT crush or chew. Take 1 capsule by mo ut DAILY (6 AM). Take 1 po qd metoclopramide 5 mg oral tablet (20 sources) Dopamine-2 Receptor Antagonist Start: 06-04-2025 metoclopramide HCl (REGLAN) 5 mg tablet [The details of the medication are not available because there are pending changes by a home health clinician.] 10 tablet 2 06/04/2025 Active Start: 12-20-2024 End: 06-04-2025 take 1 tablet by mouth three times daily as needed for constipation metoclopramide HCl (REGLAN) 5 mg tablet Take 1 po up to tid prn constipation 10 tablet 2 06/04/2025 Active Start: 06-06-2024 End: 12-20-2024 metoclopramide HCl (REGLAN) 5 mg tablet [The details of the medication are not available because there are pending changes by a home health clinician.] 10 tablet 2 06/06/2024 12/20/2024 Discontinued Start: 11-30-2023 End: 06-06-2024 take 1 tablet by mouth three times daily as needed for constipation metoclopramide HCl (REGLAN) 5 mg tablet Take 1 po up to tid prn constipation 10 tablet 2 06/06/2024 Active Start: 08-18-2023 take 1 tablet by rosales three times daily as needed for constipation metoclopramide HCl (REGLAN) 5 mg tablet Take 1 po up to tid prn constipation 10 tablet 2 08/18/2023 Active Start: 05-16-2023 End: 09-20-2023 take 1 tablet by mouth every six hours Metoclopramide Hcl (Reglan) 5 mg tablet Active 5 MG PO EVERY 6 HOURS September 20, 2023 12:00am Comment on above: Take 1 po up to tid prn constipation Mineral Oil (7 sources) Start: 04-13-2022 take 1 mL by mouth once daily Mineral Oil Active 30 ML PO DAILY April 13, 2022 9:01pm Start: 04-13-2022 take 1 mL by mouth once daily Mineral Oil Active 30 ML PO DAILY April 13, 2022 12:00am nystatin 100 unt/mg topical powder (10 sources) Polyene Antifungal Start: 07-27-2022 End: 08-13-2022 nystatin (MYCOSTATIN) powder Indications: Fungal dermatitis Apply 1 application to affected area four times daily for 14 days. 60 g 1 07/30/2022 08/13/2022 Active Comment on above: Apply 1 application to affected area four times daily for 14 days. omeprazole 20 mg delayed release oral capsule (20 sources) Proton Pump Inhibitor Start: 08-03-2023 take 1 capsule by mouth once daily before breakfast omeprazole (PRILOSEC) 20 mg capsule Indications: Chronic cough Take 1 capsule by mouth daily before breakfast. 1/2 hr before meal. 30 capsule 5 08/03/2023 Active Comment on above: Take 1 capsule by [facility] daily before breakfast. 1/2 hr before meal. polyethylene glycol 3350 34462 mg powder for oral solution (20 sources) Osmotic Laxative Start: 04-13-2024 polyethylene glycol 3350 (MIRALAX) 17 gram packet Take 1 Packet by mouth once daily as needed for constipation. Dissolve dose in 4 - 8 ounces of liquid and take as directed. 04/13/2024 Active prucalopride 2 mg oral tablet (20 sources) Start: 10-04-2022 End: 08-12-2025 take 1 tablet by mouth once daily prucalopride 2 mg tablet (MOTEGRITY) Take 1 tablet by mouth once daily. 30 tablet 2 05/14/2025 08/12/2025 Active Comment on above: Take 1 tablet (2 mg) by mouth once daily. TAKE 1 TABLET BY ROSALES TH ONCE DAILY. TAKE 1 TABLET BY ROSALES TH EVERY DAY psyllium 3400 mg powder for oral suspension (2 sources) Start: 01-19-2022 Psyllium Husk (Metamucil) 3.4 gram/5.4 gram Powder Active 1 tbsp PO DAILY January 19, 2022 6:19pm sulfamethoxazole 800 mg / trimethoprim 160 mg oral tablet (11 sources) Dihydrofolate Reductase Inhibitor Antibacterial, Sulfonamide Antimicrobial Start: 04-13-2024 End: 04-18-2024 take 1 tablet by mouth twice daily sulfamethoxazole- trimethoprim (BACTRIM DS) 800-160 mg per tablet Take 1 tablet by mouth two times a day for 5 days. 10 tablet 0 04/13/2024 04/18/2024 Active Start: 04-06-2024 End: 04-09-2024 take 1 tablet by mouth twice daily sulfamethoxazole-trimethoprim (BACTRIM D S) 800-160 mg per tablet Take 1 tablet by mouth two times a day for 3 days. 6 tablet 0 04/06/2024 04/09/2024 Active Start: 05-23-2023 End: 05-30-2023 take 1 tablet by mouth twice daily sulfamethoxazole-trimethoprim (BACTRIM D S) 800-160 mg per tablet Take 1 tablet by mouth twice daily for 7 days. 14 tablet 0 05/23/2023 05/30/2023 Active Start: 11-04-2022 take 1 tablet by rosales th once daily, then take 1 tablet by mouth twice daily Sulfamethoxazole-Trimethoprim (Bactrim D s) 800-160 mg tablet Active 1 TABLET PO TWICE A DAY 27 05November 04, 2022 1:00am Start this antibiotic once you citrus picker the prescription. Stop the current Keflex that he is on because the bacteria may be resistant to it. The Bactrim he will take 1 pill twice a day for 7 days. Start: 08-14-2022 take 1 tablet by rosales th twice daily Sulfamethoxazole-Trimethoprim (Bactrim D s) 800-160 mg tablet Active 1 TABLET PO TWICE A DAY August 14, 2022 12:00am start today Comment on above: Take 1 tablet by rosales th twice daily for 7 days. tamsulosin hydrochloride 0.4 mg oral capsule (15 sources) alpha-Adrenergic Sean Start: 3 End: 3 Tamsulosin Active 0.4 MG PO 1729August 08, 2023 11:00pm trospium chloride 20 mg oral tablet (20 sources) Cholinergic Muscarinic Antagonist Start: 4 take 1 tablet by mouth every twelve hours as needed trospium (SANCTURA) 20 mg tablet Take 1 tablet by mouth two times a day as needed (bladder spasm or urine leaking around catheter). 21 tablet 04/13/2024 Active Completed/Discontinued Medications Medication Drug Class(es) Dates Sig (Normalized) Sig (Original) ciprofloxacin 250 mg oral tablet (20 sources) Quinolone Antimicrobial Start: 02-14-2024 End: 02-21-2024 take 1 tablet by mouth twice daily ciprofloxacin HCl (CIPRO) 250 mg tablet Take 1 tablet by mouth two times a day for 7 days. 14 tablet 0 02/14/2024 02/21/2024 Start: 09-22-2023 take 500 mg by mouth twice daily Ciprofloxacin Hcl Active 500 MG PO TWICE A DAY September 22, 2023 1:00am Start: 03-27-2022 take 500 mg by mouth twice daily Ciprofloxacin Hcl Active 500 MG PO TWICE A DAY March 27, 2022 2:01am Comment on above: Take 500 mg by mouth twice daily. Take 1 tablet by rosales th two times a day for 7 days. cosyntropin 0.25 mg injection (CORTROSYN) (2 sources) Start: 10-25-2023 End: 10-25-2023 cosyntropin 0.25 mg injection (CORTROSYN) Start: 10-25-2023 End: 10-25-2023 cosyntropin 0.25 mg injectio n (CORTROSYN) diphenhydrAMINE hydrochloride 25 mg oral capsule (12 sources) Histamine-1 Receptor Antagonist Start: 02-16-2022 diphenhydrAMINE (BENADRYL) 25 mg capsule Take two capsules (50 mg) [address] scan. 2 capsule 0 02/16/2022 Active Comment on above: Take two capsules (5 0 mg) [address] scan. enteric contrast (will be provided with radiology test) (1 source) Start: 02-02-2022 End: 02-02-2022 take 1 dose by mouth once, then take 1 dose by mouth once enteric contrast (will be provided with radiology test) Take 1 Each by mouth one time only for [address] ABD/PEL WO Routine order Administer, As Directed One Time Only, via Oral, Rectal, both Oral and Rectal, Enteric Tube, Stoma or Indwelling Catheter, Enteric Contrast as designated per enteric contrast guidelines 1 Each 0 02/02/2022 02/02/2022 Comment on above: Take 1 Each by mouth one time only for [address] ABD/PEL WO Routine order Administer, As Directed One Time Only, via Oral, Rectal, both Oral and Rectal, Enteric Tube, Stoma or Indwelling Catheter, Enteric Contrast as designated per enteric contrast guidelines erythromycin ethylsuccinate 40 mg/ml oral suspension (8 sources) Macrolide, Macrolide Antimicrobial Start: 05-16-2023 End: 08-09-2023 Erythromycin Ethylsuccinate (Eryped 200) 200 mg/5 mL Suspension For Reconstitution Discontinued 100 MG PO THREE TIMES DAILY BEFORE MEALS 225 May 16, 2023 12:00am August 09, 2023 10:18am ipratropium bromide 0.021 mg/actuat metered dose nasal spray (18 sources) Anticholinergic Start: 07-21-2021 Ipratropium [place] (ATROVENT) 21 mcg (0.03 %) nasal spray Indications: Chronic rhinitis Use 2 Sprays in the nose every 12 hours. 30 mL 3 07/21/2021 Active Comment on above: Use 2 Sprays in the nose every 12 hours. Irrigation Set irst (18 sources) Start: 01-27-2021 Irrigation Set irst Indications: Neurogenic bladder Irrigation of SPT as needed when collection bag and tubing stop draining 5 Each 5 01/27/2021 Active Comment on above: Irrigation of SPT as needed when collection bag and tubing stop draining Magnesium Sulfate / potassium sulfate / sodium sulfate (20 sources) Start: 02-18-2021 sodium sulfate-potassium sulfate-magnesium sulfate (SUPREP BOWEL PREP KIT) 17.5-3.13-1.6 gram oral liquid Indications: Colon cancer screening Refer to instructions given by your provider. 2 Kit 0 02/18/2021 Active Start: 02-18-2021 sodium sulfate -potassium sulfate-magnesium sulfate (SUPREP BOWEL PREP KIT) 17.5-3.13-1.6 gram oral liquid Indications: Colon cancer screening Refer to instructions given by your provider. 1 Kit 0 02/18/2021 Active Comment on above: Refer to instruction s given by your provider. MINERAL OIL, BULK, MISC (18 sources) MINERAL OIL, BUL K, MISC 2 Tablespoonsful. 0 Active Comment on above: 2 Tablespoonsful. mupirocin 0.02 mg/mg topical ointment (18 sources) RNA Synthetase Inhibitor Antibacterial Start: 05-06-20 19 mupirocin (BACTROBAN) 2 % ointment Apply 1 application to affected area three times daily. 30 g 0 05/06/2019 Active Comment on above: Apply 1 application to affected area three times daily. oxyCODONE hydrochloride 5 mg oral tablet (1 source) Opioid Agonist Start: 04-13-20 24 End: 04-16-20 24 oxyCODONE IR (ROXICODONE) 5 mg immediate release tablet Indications: Post-op pain Take 1 tablet by mouth every 8 hours as needed for pain for up to 8 doses. 8 tablet 0 04/13/2024 04/16/2024 pantoprazole 40 mg delayed release oral tablet (18 sources) Proton Pump Inhibitor Start: 08-06-20 21 take 1 tablet by mouth twice daily pantoprazole DR (PROTONIX) 40 mg tablet Take 40 mg by mouth twice daily. 0 08/06/2021 Active Comment on above: Take 40 mg by mouth twice daily. predniSONE 10 mg oral tablet (12 sources) Start: 02-17-20 predniSONE (DELTASONE) 10 mg tablet Take 5 tablets by mouth as directed. Take 5 tablets [address] scan. Take 5 tablets [address] scan. Take 5 tablets [address] scan. 15 tablet 0 02/16/2022 Active Comment on above: Take 5 tablets by [facility] as directed. Take 5 tablets [address] scan. Take 5 tablets [address] scan. Take 5 tablets [address] scan. psyllium husk (METAMUCIL ORAL) (20 sources) End: 07-30-20 22 psyllium husk (METAMUCIL ORAL) Take by mouth daily at bedtime. OTC as needed 0 07/30/2022 Discontinued (Other) psyllium husk (M ETAMUCIL ORAL) Take by mouth daily at bedtime. OTC as needed 0 Active Comment on above: Take by mouth daily at bedtime. OTC as needed sodium chloride 0.154 meq/ml irrigation solution (18 sources) Start: 11-04-2020 sodium chloride irrig solution (NACL 0.9% IRRIGATION BOTTLE) Indications: Dysuria Irrigate 200 mL as instructed once daily. 2000 mL 4 11/04/2020 Active Comment on above: Irrigate 200 mL as i nstructed once daily. Problems Active Problems Problem Classification Problem Date Documented Date Episodic/Chronic Acute and unspecified renal failure (9 sources) Injury of kidney; Translations: [Acute kidney failure, unspecified] 04-02-2023 Episodic Allergic reactions (1 source) Radiographic dye allergy status; Translations: [Radiographic dye allergy status] Onset: 12-15-19 Episodic Cardiac dysrhythmias (19 sources) Sinus tachycardia; Translations: [Tachycardia, unspecified] Episodic Complication of device; implant or graft (20 sources) Disorder of urethral catheter; Translations: [Breakdown (mechanical) of indwelling urethral catheter, initial encounter] Episodic Digestive congenital anomalies (3 sources) Congenital redundant colon; Translations: [Other specified congenital malformations of intestine] Chronic Diseases of white blood cells (20 sources) Leukocytosis; Translations: [Elevated white blood cell count, unspecified] 04-02-2023 Chronic Disorders of lipid metabolism (1 source) Hyperlipidemia, unspecified; Translations: [Hyperlipidemia, unspecified] Onset: 12-15-19 Chronic Epilepsy; convulsions (1 source) Epilepsy, unspecified, not intractable, without status epilepticus; Translations: [Epilepsy, unsp, not intractable, without status epilepticus] Onset: 12-15-19 Chronic Essential hypertension (1 source) Essential (primary) hypertension; Translations: [Essential (primary) hypertension] Onset: 12-15-19 Chronic Fever of unknown origin (20 sources) Fever; Translations: [Fever, unspecified] Episodic Fluid and electrolyte disorders (20 sources) Hyponatremia; Translations: [Hypo-osmolality and hyponatremia] Onset: 05-19-20 Episodic Genitourinary symptoms and ill-defined conditions (20 sources) Urinary catheter in situ; Translations: [Encounter for fitting and adjustment of urinary device] Chronic Genitourinary symptoms and ill-defined conditions (20 sources) Retention of urine; Translations: [Retention of urine, unspecified] Onset: 04-06-20 21 04-06-2021 Episodic Hyperplasia of prostate (20 sources) Benign prostatic hypertrophy with outflow obstruction; Translations: [Benign prostatic hyperplasia with lower urinary tract symptoms] Onset: 08-29-20 20 08-29-2020 Chronic Immunizations and screening for infectious disease (2 sources) Needs influenza immunization; Translations: [Encounter for immunization] Onset: 08-30-20 Episodic Mycoses (2 sources) Dermal mycosis; Translations: [Superficial mycosis, unspecified] Onset: 08-30-20 Episodic Nausea and vomiting (20 sources) Nausea and vomiting; Translations: [Nausea with vomiting, unspecified] Episodic Neoplasms of unspecified nature or uncertain behavior (3 sources) Thrombocytosis; Translations: [Thrombocytosis] Episodic Nervous system congenital anomalies (20 sources) Congenital hydrocephalus; Translations: [Congenital hydrocephalus, unspecified] Onset: 02-02-20 08 02-02-2008 Chronic Other aftercare (1 source) Other residential (current) drug therapy; Translations: [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] Onset: 12-15-19 Episodic Other congenital anomalies (1 source) Congenital hernia of bladder; Translations: [Congenital hernia of bladder] 02-21-2024 Chronic Other diseases of bladder and urethra (20 sources) Neurogenic bladder; Translations: [Neuromuscular dysfunction of bladder, unspecified] Onset: 08-22-20 18 08-22-2018 Chronic Other diseases of bladder and urethra (20 sources) Diverticulum of bladder; Translations: [Diverticulum of bladder] Onset: 04-12-20 24 09-20-2022 Chronic Other diseases of bladder and urethra (4 sources) Diverticulum of bladder; Translations: [Diverticulum of bladder] Onset: 06-07-20 Chronic Other diseases of bladder and urethra (2 sources) Neuromuscular dysfunction of bladder, unspecified; Translations: [Neuromuscular dysfunction of bladder, unspecified] Onset: 12-15-19 Chronic Other diseases of bladder and urethra (1 source) Spasm of bladder; Translations: [Other specified disorders of bladder] 09-19-2023 Chronic Other diseases of kidney and ureters (1 source) Renal impairment; Translations: [Disorder of kidney and ureter, unspecified] Episodic Other disorders of stomach and duodenum (20 sources) Pyloric obstruction; Translations: [Adult hypertrophic pyloric stenosis] 08-15-2021 Episodic Other disorders of stomach and duodenum (20 sources) Mass of stomach; Translations: [Other diseases of stomach and duodenum] 08-07-2021 Episodic Other disorders of stomach and duodenum (12 sources) Gastroparesis; Translations: [Gastroparesis] Onset: 12-15-19 Episodic Other gastrointestinal disorders (1 source) Neurogenic bowel; Translations: [Neurogenic bowel, not elsewhere classified] 03-21-2024 Chronic Other gastrointestinal disorders (7 sources) Chronic constipation; Translations: [Other constipation] Episodic Other gastrointestinal disorders (20 sources) Abdominal distension, gaseous; Translations: [Abdominal distension (gaseous)] 08-03-2020 Episodic Other gastrointestinal disorders (20 sources) Constipation; Translations: [Constipation, unspecified] 08-15-2021 Episodic Other gastrointestinal disorders (3 sources) Personal history of other diseases of the digestive system; Translations: [Personal history of other diseases of digestive system] Episodic Other gastrointestinal disorders (3 sources) Constipation, unspecified; Translations: [Constipation, unspecified] Onset: 12-11-19 Episodic Other gastrointestinal disorders (1 source) Other megacolon; Translations: [Other megacolon] Onset: 12-15-19 Episodic Other gastrointestinal disorders (10 sources) Swollen abdomen; Translations: [Abdominal distension (gaseous)] 02-20-2023 Episodic Other gastrointestinal disorders (3 sources) Abdominal distension (gaseous); Translations: [Flatulence, eructation, and gas pain] 02-20-2023 Episodic Other gastrointestinal disorders (9 sources) Chronic intestinal pseudo-obstruction; 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] 05-16-2023 Episodic Other gastrointestinal disorders (2 sources) Constipation due to neurogenic bowel; Translations: [Constipation, unspecified] 07-02-2024 Episodic Other lower respiratory disease (1 source) Chronic cough; Translations: [Chronic cough] 08-03-2023 Episodic Other nervous system disorders (20 sources) Hydrocephalus; Translations: [Hydrocephalus, unspecified] Onset: 04-06-2004-06-2021 Chronic Other nervous system disorders (20 sources) H/O: major vascular surgery; Translations: [Presence of cerebrospinal fluid drainage device] Onset: 07-16-20 Chronic Other nervous system disorders (20 sources) Ventriculoperitoneal shunt in situ; Translations: [Presence of cerebrospinal fluid drainage device] 12-11-2022 Chronic Other nervous system disorders (10 sources) Normal pressure hydrocephalus; Translations: [(Idiopathic) normal pressure hydrocephalus] 02-20-2023 Chronic Other nervous system disorders (2 sources) (Idiopathic) normal pressure hydrocephalus; 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)] 02-20-2023 Chronic Other nervous system disorders (2 sources) Presence of cerebrospinal fluid drainage device; Translations: [Presence of cerebrospinal fluid drainage device] 02-20-2023 Chronic Other nervous system disorders (3 sources) Hydrocephalus, unspecified; Translations: [Obstructive hydrocephalus] Onset: 04-06-2008-09-2023 Chronic Other screening for suspected conditions (not mental disorders or infectious disease) (8 sources) Patient encounter status; Translations: [Encounter for screening for other disorder] Episodic Residual codes; unclassified (20 sources) H/O: urinary disease; Translations: [Personal history of other specified conditions] 08-02-2022 Episodic Residual codes; unclassified (2 sources) Personal history of other specified conditions; Translations: [Personal history of other specified urinary system disorders] Episodic Residual codes; unclassified (1 source) Other specified postprocedural states; Translations: [Other specified postprocedural states] Onset: 12-15-19 Episodic Residual codes; unclassified (1 source) Acquired absence of other specified parts of digestive tract; Translations: [Acquired absence of other specified parts of digestive tract] Onset: 12-15-19 Episodic Residual codes; unclassified (17 sources) Urinary catheter in situ; Translations: [Presence of other specified devices] 02-20-2023 Episodic Screening and history of mental health and substance abuse codes (2 sources) Encounter for screening for depression; Translations: [Encounter for screening examination for other mental health and behavioral disorders] Onset: 08-30-20 Episodic Septicemia (except in labor) (20 sources) Sepsis; Translations: [Sepsis, unspecified organism] 01-01-2021 Episodic Unclassified (20 sources) Myelodysplasia of spinal cord; Translations: [Myelodysplasia] Onset: 05-22-20 13 05-22-2013 Unclassified (1 source) Contact with and (suspected) exposure to COVID-19; Translations: [Contact with and (suspected) exposure to COVID-19] Onset: 12-15-19 Urinary tract infections (20 sources) Urinary tract infectious disease; Translations: [Urinary tract infection, site not specified] Episodic Viral infection (8 sources) Disease caused by 2019-nCoV; Translations: [COVID-19] 09-20-2023 Episodic Past or Other Problems Problem Classification Problem Date Documented Da te Episodic/Chronic Abdominal hernia (20 sources) Right inguinal hernia ; Translations: [Unilateral inguinal hernia, without obstruction or gangrene, not specified as recurrent] Onset: 04-06-2021 04-06-2021 Episodic Abdominal pain (20 sources) Abdominal pain; Translations: [Unspecified abdominal pain] Onset: 01-26-2024 Episodic Calculus of urinary tract (20 sources) Urinary bladder stone; Translations: [Calculus in bladder] Onset: 04-12-2024 Episodic Intestinal obstruction without hernia (20 sources) Small bowel obstruction; Translations: [Unspecified intestinal obstruction, unspecified as to partial versus complete obstruction] Onset: 04-14-2022 Resolved: 05-19-2023 Episodic Malaise and fatigue (20 sources) Asthenia; Translations: [Weakness] Onset: 07-31-2015 07-31-2015 Episodic Other acquired deformities (20 sources) Acquired deformity of ankle AND/OR foot; Translations: [Unspecified acquired deformity of unspecified lower leg] Onset: 07-31-2015 07-31-2015 Episodic Other disorders of stomach and duodenum (20 sources) Gastroparesis syndrome; Translations: [Gastroparesis] Onset: 05-19-2023 07-21-2022 Episodic Other gastrointestinal disorders (2 sources) Other specified functional intestinal disorders; Translations: [Other specified functional intestinal disorders] Onset: 02-11-2024 Episodic Other lower respiratory disease (1 source) Other disorders of lung; Translations: [Other disorders of lung] Onset: 06-30-2024 Episodic Other nervous system disorders (20 sources) Abnormal gait; Translations: [Unspecified abnormalities of gait and mobility] Onset: 07-31-2015 07-31-2015 Episodic Other nervous system disorders (1 source) Unspecified abnormalities of gait and mobility; Translations: [Abnormality of gait] Onset: 04-06-2023 Episodic Paralysis (20 sources) Hemiplegic cerebral palsy; Translations: [Other cerebral palsy] Onset: 02-02-2008 Resolved: 05-22-2013 05-22-2013 Chronic Residual codes; unclassified (8 sources) Presence of other specified devices; Translations: [Other postprocedural status] 02-20-2023 Episodic Results Test Name Value Interpretation Reference Range Facility Basic metabolic 2000 panelon 09-06-2025 Anion gap [Moles/Vol] 12 mmol/L Normal 8-15 [facility] Comment on above: Order Comment: Speci men Type: BLOOD SPECIMENOrdering Facility: [facility] Address: [address] [place] [address] Performed By: #### 2 4321-2 ####[facility] LABCLIA [id number] [place] [address] [place] Calcium [Mass/Vol] 9.1 mg/dL Normal 8.5-10.2 [facility] Comment on above: Order Comment: Speci men Type: BLOOD SPECIMENOrdering Facility: [facility] Address: [address] [place] [address] Performed By: #### 2 4321-2 ####[facility] LABCLIA [id number] [place] [address] [place] Chloride [Moles/Vol] 94 mmol/L Low 98-107 [facility] Comment on above: Order Comment: Speci men Type: BLOOD SPECIMENOrdering Facility: [facility] Address: [address] [place] [address] Performed By: #### 2 4321-2 ####[facility] LABCLIA [id number] [place] [id number] [place] CO2 [Moles/Vol] 23 mmol/L Normal 22-30 [facility] Comment on above: Order Comment: Speci men Type: BLOOD SPECIMENOrdering Facility: [facility] Address: [address] [place] [address] Performed By: #### 2 4321-2 ####[facility] LABCLIA [id number] [place] [id number] [place] Creatinine [Mass/Vol] 0.63 mg/dL Low 0.73-1.22 [facility] Comment on above: Order Comment: Mary gallegos Type: BLOOD SPECIMENOrdering Facility: [facility] Address: [address] [place] [address] Performed By: #### 2 4321-2 ####[facility] LABCLIA [id number] [place] [address] [place] eGFRcr SerPlBld CKD-EPI 2020 111 mL/min/1.73m??? Normal >=60 [facility] Comment on above: Order Comment: Mary gallegos Type: BLOOD SPECIMENOrdering Facility: [facility] Address: [address] [place] [address] Result Comment: Zoey mated Glomerular Filtration Rate (eGFR) is calculated using the 2020 CKD-EPI creatinine equation. This equation utilizes serum creatinine, sex, and age as parameters. The creatinine assay has traceable calibration to isotope dilution-mass spectrometry. Refer to KDIGO guidelines for clinical interpretation. In patients with unstable renal function, e.g. those with acute kidney injury, the eGFR may not accurately reflect actual GFR. Performed By: #### 2 4321-2 ####[facility] LABCLIA [id number] [place] [address] [place] Glucose [Mass/Vol] 101 mg/dL High 74-99 [facility] Comment on above: Order Comment: Mary rosy Type: BLOOD SPECIMENOrdering Facility: [facility] Address: [address] [place] [address] Result Comment: The [place] [employer] Association (ADA) provides guidance for cutoff values for fasting glucose and random glucose. The ADA defines fasting as no caloric intake for at least 8 hours. Fasting plasma glucose results between 100 to 125 mg/dL indicate increased risk for diabetes (prediabetes). Fasting plasma glucose results greater than or equal to 126 mg/dL meet the criteria for diagnosis of diabetes. In the absence of unequivocal hyperglycemia, results should be confirmed by repeat testing. In a patient with classic symptoms of hyperglycemia or hyperglycemic crisis, random plasma glucose results greater than or equal to 200 mg/dL meet the criteria for diagnosis of diabetes. Reference: Standards of Medical Care in Diabetes 2016, [place] [employer]. Diabetes Care. 2016.39(Suppl 1). Performed By: #### 2 4321-2 ####[facility] LABCLIA [id number] [place] [address] [place] Potassium [Moles/Vol] 3.9 mmol/L Normal 3.7-5.1 [facility] Comment on above: Order Comment: Speci men Type: BLOOD SPECIMENOrdering Facility: [facility] Address: [address] [place] [address] Performed By: #### 2 4321-2 ####[facility] LABCLIA [id number] [place] [address] [place] Sodium [Moles/Vol] 129 mmol/L Low 136-144 [facility] Comment on above: Order Comment: Speci men Type: BLOOD SPECIMENOrdering Facility: [facility] Address: [address] [place] [address] Performed By: #### 2 4321-2 ####[facility] LABIA [id number] [place] [address] [place] Urea nitrogen [Mass/Vol] 12 mg/dL Normal 9-24 [facility] Comment on above: Order Comment: Speci men Type: BLOOD SPECIMENOrdering Facility: [facility] Address: [address] [place] [address] Performed By: #### 2 4321-2 ####[facility] LABIA [id number] [place] [address] [place] Osmolality Uron 09-06-2025 Osmolality (U) [Osmolality] 301 mosm/kg Normal 50-1200 [facility] Comment on above: Order Comment: Speci men Type: URINE SPECIMENOrdering Facility: [facility] Address: [address] [place] [address] Performed By: #### 2 695-5 ####[facility] LABCLIA [id number] [place] [address] [place] CBC W Auto Differential pane l (Bld)on 08-30-2025 Basophils (Bld) [#/Vol] 0.06 10*3/uL Normal <0.11 [facility] Comment on above: Order Comment: Speci men Type: BLOOD SPECIMENOrdering Facility: [facility] Address: [address] [place] [address] Performed By: #### 5 7021-8 ####[facility] LABCLIA [id number] [place] [address] [place] Basophils/100 WBC (Bld) 0.7 % Normal [facility] Comment on above: Order Comment: Speci men Type: BLOOD SPECIMENOrdering Facility: [facility] Address: [address] [place] [address] Performed By: #### 5 7021-8 ####[facility] LABCLIA [id number] [place] [address] [place] Differential cell count method Nom (Bld) Auto Normal [facility] Comment on above: Order Comment: Speci men Type: BLOOD SPECIMENOrdering Facility: [facility] Address: [address] [place] [address] Performed By: #### 5 7021-8 ####[facility] LABCLIA [id number] [place] [address] [place] Eosinophils (Bld) [#/Vol] 0.17 10*3/uL Normal <0.46 [facility] Comment on above: Order Comment: Speci men Type: BLOOD SPECIMENOrdering Facility: [facility] Address: [address] [place] [address] Performed By: #### 5 7021-8 ####[facility] LABCLIA [id number] [place] [address] [place] Eosinophils/100 WBC (Bld) 2.1 % Normal [facility] Comment on above: Order Comment: Speci men Type: BLOOD SPECIMENOrdering Facility: [facility] Address: [address] [place] [address] Performed By: #### 5 7021-8 ####[facility] LABCLIA [id number] [address] [place] Erythrocyte distribution width (RBC) [Ratio] 12.7 % Normal 11.5-15.0 [facility] Comment on above: Order Comment: Speci men Type: BLOOD SPECIMENOrdering Facility: [facility] Address: [address] [place] [address] Performed By: #### 5 7021-8 ####[facility] LABCLIA [id number] [place] [address] [place] Hematocrit (Bld) [Volume fraction] 42.5 % Normal 39.0-51.0 [facility] Comment on above: Order Comment: Speci men Type: BLOOD SPECIMENOrdering Facility: [facility] Address: [address] [place] [address] Performed By: #### 5 7021-8 ####[facility] LABCLIA [id number] [place] [address] [place] Hemoglobin (Bld) [Mass/Vol] 14.6 g/dL Normal 13.0-17.0 [facility] Comment on above: Order Comment: Speci men Type: BLOOD SPECIMENOrdering Facility: [facility] Address: [address] [place] [address] Performed By: #### 5 7021-8 ####[facility] LABCLIA [id number] [place] [address] [place] Immature granulocytes (Bld) [#/Vol] 10*3/uL Normal <0.10 [facility] Comment on above: Order Comment: Speci men Type: BLOOD SPECIMENOrdering Facility: [facility] Address: [address] [place] [address] Performed By: #### 5 7021-8 ####[facility] LABCLIA [id number] [place] [address] [place] Immature granulocytes/100 WBC (Bld) 0.2 % Normal [facility] Comment on above: Order Comment: Speci men Type: BLOOD SPECIMENOrdering Facility: [facility] Address: [address] [place] [address] Performed By: #### 5 7021-8 ####[facility] LABCLIA [id number] [place] [address] [place] Lymphocytes (Bld) [#/Vol] 1.97 10*3/uL Normal 1.00-4.00 [facility] Comment on above: Order Comment: Speci men Type: BLOOD SPECIMENOrdering Facility: [facility] Address: [address] [place] [address] Performed By: #### 5 7021-8 ####[facility] LABCLIA [id number] [place] [address] [place] Lymphocytes/100 WBC (Bld) 24.1 % Normal [facility] Comment on above: Order Comment: Speci men Type: BLOOD SPECIMENOrdering Facility: [facility] Address: [address] [place] [address] Performed By: #### 5 7021-8 ####[facility] LABCLIA [id number] [place] [address] [place] MCH (RBC) [Entitic mass] 30.3 pg Normal 26.0-34.0 [facility] Comment on above: Order Comment: Speci men Type: BLOOD SPECIMENOrdering Facility: [facility] Address: [address] [place] [address] Performed By: #### 5 7021-8 ####[facility] LABCLIA [id number] [place] [address] [place] MCHC (RBC) [Mass/Vol] 34.4 g/dL Normal 30.5-36.0 [facility] Comment on above: Order Comment: Speci men Type: BLOOD SPECIMENOrdering Facility: [facility] Address: [address] [place] [address] Performed By: #### 5 7021-8 ####[facility] LABCLIA [id number] [place] [address] [place] MCV (RBC) [Entitic vol] 88.2 fL Normal 80.0-100.0 [facility] Comment on above: Order Comment: Speci men Type: BLOOD SPECIMENOrdering Facility: [facility] Address: [address] [place] [address] Performed By: #### 5 7021-8 ####[facility] LABCLIA [id number] [place] [address] [place] Monocytes (Bld) [#/Vol] 1.14 10*3/uL High <0.87 [facility] Comment on above: Order Comment: Speci men Type: BLOOD SPECIMENOrdering Facility: [facility] Address: [address] [place] [address] Performed By: #### 5 7021-8 ####[facility] LABCLIA [id number] [place] [address] [place] Monocytes/100 WBC (Bld) 14.0 % [facility] on above: Order Comment: Speci men Type: BLOOD SPECIMENOrdering Facility: [facility] Address: [address] [place] [address] Performed By: #### 5 7021-8 ####[facility] LABCLIA [id number] [place] [address] [place] Neutrophils (Bld) [#/Vol] 4.80 10*3/uL Normal 1.45-7.50 [facility] Comment on above: Order Comment: Speci men Type: BLOOD SPECIMENOrdering Facility: [facility] Address: [address] [place] [address] Performed By: #### 5 7021-8 ####[facility] LABCLIA [id number] [place] [address] [place] Neutrophils/100 WBC (Bld) 58.9 % Normal [facility] Comment on above: Order Comment: Speci men Type: BLOOD SPECIMENOrdering Facility: [facility] Address: [address] [place] [address] Performed By: #### 5 7021-8 ####[facility] LABCLIA [id number] [place] [address] [place] Nucleated RBC (Bld) [#/Vol] 10*3/uL Normal <0.01 [facility] Comment on above: Order Comment: Speci men Type: BLOOD SPECIMENOrdering Facility: [facility] Address: [address] [place] [address] Performed By: #### 5 7021-8 ####[facility] LABCLIA [id number] [place] [address] [place] Nucleated RBC/100 WBC (Bld) [Ratio] 0.0 /100 WBC Normal [facility] Comment on above: Order Comment: Speci men Type: BLOOD SPECIMENOrdering Facility: [facility] Address: [address] [place] [address] Performed By: #### 5 7021-8 ####[facility] LABCLIA [id number] [place] [address] [place] Platelet mean volume (Bld) [Entitic vol] 11.2 fL Normal 9.0-12.7 [facility] [place] Comment on above: Order Comment: Speci men Type: BLOOD SPECIMENOrdering Facility: [facility] Address: [address] [place] [address] Performed By: #### 5 7021-8 ####[facility] LABCLIA [id number] [place] [address] [place] Platelets (Bld) [#/Vol] 299 10*3/uL Normal 150-400 [facility] [place] Comment on above: Order Comment: Speci men Type: BLOOD SPECIMENOrdering Facility: [facility] Address: [address] [place] [address] Performed By: #### 5 7021-8 ####[facility] LABCLIA [id number] [place] [address] [place] RBC (Bld) [#/Vol] 4.82 10*6/uL Normal 4.20-6.00 [facility] Comment on above: Order Comment: Speci men Type: BLOOD SPECIMENOrdering Facility: [facility] Address: [address] [id number] Performed By: #### 5 7021-8 ####[facility] LABCLIA [id number] [place] [id number] [place] WBC (Bld) [#/Vol] 8.16 10*3/uL Normal 3.70-11.00 [facility] Comment on above: Order Comment: Speci men Type: BLOOD SPECIMENOrdering Facility: [facility] Address: [address] [id number] Performed By: #### 5 7021-8 ####[facility] LABCLIA [id number] [place] [id number] [facility] CNOVon 08-30-2025 CNOV Office Visit ([facility] ) -------- JEANJIAN KOENIG ([id number]) 1965 M Date Time Provider Department 08/30/25 2:40 PM [facility] During your visit today, we recorded the following information about you: Pulse Respiration Blood pressure 81/minute 16/minute 128/82 Kyleigh Casas, SENIOR BUSINESS MANAGER.[employer]YS [employer] GAMES HAND FINISHER 08/30/2025 4:16 PM Signed Chief Reason For Appointment Patient presents with: Yearly Exam Jian Altamirano is a 59 year old male who presents for annual exam. Last office visit date: 06/25/2024 Accompanied By spouse, Darrion, sister Have you had any critical events, hospital stays, ER visits, surgeries or procedures since your last visit here in our office: No Specialists/Other Healthcare Providers Seen: Patient Care Team: Clifford Estes MD as PCP - General (Family Medicine) Clifford Estes MD as Referring (Family Medicine) Clifford Estes MD as Home Care Provider (Family Medicine) Wero Uribe RN as Balancer (Post Acute Care) Yvette Gao APRN.KAREN as Instructor Dancing (Family Medicine) Kyleigh Casas APRN.KAREN as Instructor Dancing (Family Medicine) Concerns today: Fungal rashes and sinus drainage HPI The patient is a 59-year-old male with chronic sinusitis, presenting for evaluation of persistent sinus congestion and nocturnal cough. Accompanied by his sister, who is providing history on his behalf. Jian Altamirano is a 59-year-old male with a history of chronic sinusitis, neurogenic bladder, and bowel obstructions, accompanied by his sister, who is providing history on his behalf, presenting for evaluation of chronic sinusitis and skin rash. Chronic Sinusitis: - Chronic sinusitis with nocturnal cough. - Sister reports horrible wax problem in ears. - Denies SOB, wheezing, or chest pain. Skin Rash: - Dry, flaky skin on scalp. - Occasional erythema in axillary regions, managed with Betadine pads. Neurogenic Bladder: - Managed with twice-monthly catheter changes by home health nurse. - Daily bladder irrigation performed by sister. - History of bladder stones; reports strong-smelling urine. Bowel Obstructions: - History of SBOs and ileus. - Managed by motility specialist at [facility]. - Currently taking Motegrity with good results. - Denies recent nausea or emesis. Mobility: - Ambulates with assistance using Serbian crutches. - Unable to obtain accurate weight due to mobility limitations. Immunizations: - Interested in receiving flu and COVID vaccines today. 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 ROS: Constitutional: (-) weight loss, (-) weight gain Head: (-) headache Ears/Nose/Mouth/Throat: (+) ear fullness Neck: (-) neck swelling Cardiovascular: (+) palpitations, (-) chest pain, (-) peripheral edema, (-) orthopnea Respiratory: (+) cough Gastrointestinal: (-) nausea, (-) vomiting Musculoskeletal: (-) joint pain, (-) joint swelling Skin: (+) dry skin, (+) axillary rash Neurological: (-) seizures, (-) stroke symptoms, (-) tremor Psychiatric: (-) depressed mood, (-) anhedonia, (-) anxiety, (-) suicidal ideation PAST MEDICAL HISTORY Diagnosis Date Bladder stones 04/12/2024 Bowel dysfunction Constipation Hydrocephalus (HCC) Inguinal hernia left - imaging at [facility] Sleep apnea Spina bifida (HCC) Urinary retention PAST SURGICAL HISTORY Procedure Laterality Date CRTJ SHUNT [id number] URAL TERMINUS EGD W/O [facility] SPEC VARICIES INJ 08/06/2021 PAST SURGICAL HISTORY OF repair of hamstring PAST SURGICAL HISTORY OF abdominal surgery in childhood Medication List Current Outpatient Medications Medication Sig Dispense Refill baclofen 5 mg tablet Take 1 tablet by mouth three times a day. 270 each 3 metoclopramide HCl (REGLAN) 5 mg tablet Take 1 po up to tid prn constipation 10 tablet 2 linaCLOtide (LINZESS) 290 mcg capsule Take 1 po qd 90 capsule 2 trospium (SANCTURA) 20 mg tablet Take 1 tablet by mouth two times a day as needed (bladder spasm or urine leaking around catheter). 21 tablet 0 polyethylene glycol 3350 (MIRALAX) 17 gram packet Take 1 Packet by mouth once daily as needed for constipation. Dissolve dos (more content not included)... Normal [facility] Comprehensive metabolic 2000 panelon 08-30-2025 Albumin [Mass/Vol] 4.2 g/dL Normal 3.9-4.9 [facility] Comment on above: Order Comment: Speci men Type: BLOOD SPECIMENOrdering Facility: [facility] Address: [address] [place] [address] Performed By: #### 1 9123-9, 3016-3, 67656-3, LIPNF ####[facility] LABCLIA [id number] [place] [address] [place] ALP [Catalytic activity/Vol] 70 U/L Normal 38-113 [facility] Comment on above: Order Comment: Speci men Type: BLOOD SPECIMENOrdering Facility: [facility] Address: [address] [place] [address] Performed By: #### 1 9123-9, 3016-3, 46698-8, LIPNF ####[facility] LABCLIA [id number] [place] [address] [place] ALT [Catalytic activity/Vol] 14 U/L Normal 10-54 [facility] Comment on above: Order Comment: Speci men Type: BLOOD SPECIMENOrdering Facility: [facility] Address: [address] [place] [address] Performed By: #### 1 9123-9, 6-3, 56036-2, LIPNF ####[facility] LABCLIA [id number] [place] [address] [place] Anion gap [Moles/Vol] 11 mmol/L Normal 8-15 [facility] Comment on above: Order Comment: Speci men Type: BLOOD SPECIMENOrdering Facility: [facility] Address: [address] [place] [address] Performed By: #### 1 9123-9, 3015-3, 77388-3, LIPNF ####[facility] LABCLIA [id number] [place] [id number] [place] AST [Catalytic activity/Vol] 17 U/L Normal 14-40 [facility] Comment on above: Order Comment: Speci men Type: BLOOD SPECIMENOrdering Facility: [facility] Address: [address] [place] [address] Performed By: #### 1 9123-9, 3016-3, 98779-1, LIPNF ####[facility] LABCLIA [id number] [place] [address] [place] Bilirubin [Mass/Vol] 0.5 mg/dL Normal 0.2-1.3 [facility] Comment on above: Order Comment: Speci men Type: BLOOD SPECIMENOrdering Facility: [facility] Address: [address] [place] [address] Performed By: #### 1 9123-9, 3016-3, 71697-1, LIPNF ####[facility] LABCLIA [id number] [place] [address] [place] Calcium [Mass/Vol] 9.0 mg/dL Normal 8.5-10.2 [facility] Comment on above: Order Comment: Speci men Type: BLOOD SPECIMENOrdering Facility: [facility] Address: [address] [place] [address] Performed By: #### 1 9123-9, 3015-3, 25908-6, LIPNF ####[facility] LABCLIA [id number] [place] [address] [place] Chloride [Moles/Vol] 91 mmol/L Low 98-107 [facility] Comment on above: Order Comment: Speci men Type: BLOOD SPECIMENOrdering Facility: [facility] Address: [address] [place] [address] Performed By: #### 1 9123-9, 3015-3, 84636-1, LIPNF ####[facility] LABCLIA [id number] [place] [address] [place] CO2 [Moles/Vol] 24 mmol/L Normal 22-30 [facility] Comment on above: Order Comment: Speci men Type: BLOOD SPECIMENOrdering Facility: [facility] Address: [address] [place] [address] Performed By: #### 1 9123-9, 6-3, 29903-8, LIPNF ####[facility] LABCLIA [id number] [place] [id number] [place] Creatinine [Mass/Vol] 0.61 mg/dL Low 0.73-1.22 [facility] Comment on above: Order Comment: Mary gallegos Type: BLOOD SPECIMENOrdering Facility: [facility] Address: [address] [place] [address] Performed By: #### 1 9123-9, 3016-3, 96243-9, LIPNF ####[facility] LABCLIA [id number] [place] [address] [place] eGFRcr SerPlBld CKD-EPI 2020 112 mL/min/1.73m??? Normal >=60 [facility] Comment on above: Order Comment: Mary gallegos Type: BLOOD SPECIMENOrdering Facility: [facility] Address: [address] [place] [address] Result Comment: Zoey mated Glomerular Filtration Rate (eGFR) is calculated using the 2020 CKD-EPI creatinine equation. This equation utilizes serum creatinine, sex, and age as parameters. The creatinine assay has traceable calibration to isotope dilution-mass spectrometry. Refer to KDIGO guidelines for clinical interpretation. In patients with unstable renal function, e.g. those with acute kidney injury, the eGFR may not accurately reflect actual GFR. Performed By: #### 1 9123-9, 3016-3, 81935-7, LIPNF ####[facility] LABCLIA [id number] [place] [address] [place] Glucose [Mass/Vol] 96 mg/dL Normal 74-99 [facility] Comment on above: Order Comment: Mary gallegos Type: BLOOD SPECIMENOrdering Facility: [facility] Address: [address] [place] [address] Result Comment: The [place] Diabetes Association (ADA) provides guidance for cutoff values for fasting glucose and random glucose. The ADA defines fasting as no caloric intake for at least 8 hours. Fasting plasma glucose results between 100 to 125 mg/dL indicate increased risk for diabetes (prediabetes). Fasting plasma glucose results greater than or equal to 126 mg/dL meet the criteria for diagnosis of diabetes. In the absence of unequivocal hyperglycemia, results should be confirmed by repeat testing. In a patient with classic symptoms of hyperglycemia or hyperglycemic crisis, random plasma glucose results greater than or equal to 200 mg/dL meet the criteria for diagnosis of diabetes. Reference: Standards of Medical Care in Diabetes 2016, [place] Diabetes Association. Diabetes Care. 2016.39(Suppl 1). Performed By: #### 1 9123-9, 3015-3, 38317-8, LIPNF ####[facility] LABCLIA [id number] [place] [address] [place] Potassium [Moles/Vol] 4.2 mmol/L Normal 3.7-5.1 [facility] Comment on above: Order Comment: Speci men Type: BLOOD SPECIMENOrdering Facility: [facility] Address: [address] [place] [address] Performed By: #### 1 9123-9, 3, , LIPNF ####[facility] LABCLIA [id number] [place] [id number] [place] Protein [Mass/Vol] 7.5 g/dL Normal 6.3-8.0 [facility] Comment on above: Order Comment: Speci men Type: BLOOD SPECIMENOrdering Facility: [facility] Address: [address] [place] [address] Performed By: #### 1 9123-9, 3, , LIPNF ####[facility] LABCLIA [id number] [place] [id number] [place] Sodium [Moles/Vol] 126 mmol/L Low 136-144 [facility] Comment on above: Order Comment: Speci men Type: BLOOD SPECIMENOrdering Facility: [facility] Address: [address] [place] [address] Performed By: #### 1 9123-9, 3015-3, , LIPNF ####[facility] LABCLIA [id number] [place] [address] [place] Urea nitrogen [Mass/Vol] 6 mg/dL Low 9-24 [facility] Comment on above: Order Comment: Speci men Type: BLOOD SPECIMENOrdering Facility: [facility] Address: [address] [place] [address] Performed By: #### 1 9123-9, 3016-3, 39508-9, LIPNF ####[facility] LABCLIA [id number] [address] HbA1c (Bld)on 08-30-2025 Average glucose Estimated from glycated hemoglobin (Bld) [Mass/Vol] 103 mg/dL Normal [facility] Comment on above: Order Comment: Mary gallegos Type: BLOOD SPECIMENOrdering Facility: [facility] Address: [address] [place] [address] Result Comment: eAG: (Estimated average glucose) is a calculated value from HgbA1c and is mechanical service representative of the average blood glucose level in the last 2-3 month period. Performed By: #### 5 5454-3 ####[facility] LABIA [id number] [address] [facility] HbA1c (Bld) [Mass fraction] 5.2 % Normal 4.3-5.6 [facility] Comment on above: Order Comment: Mary gallegos Type: BLOOD SPECIMENOrdering Facility: [facility] Address: [address] [place] [address] Result Comment: [place] Diabetes Association guidelines indicate that patients with HgbA1c in the range 5.7-6.4% are at increased risk for development of diabetes, and intervention by lifestyle modification may be beneficial. HgbA1c greater or equal to 6.5% is considered diagnostic of diabetes. Performed By: #### 5 5454-3 ####[facility] LABIA [id number] [address] [facility] LIPID PANEL, NONFASTINGon Cholesterol [Mass/Vol] 136 mg/dL Normal <200 [facility] Comment on above: Order Comment: Mary gallegos Type: BLOOD SPECIMENOrdering Facility: [facility] Address: [address] [place] [address] Result Comment: <200 mg/dL, Desirable 200-239 mg/dL, Borderline high >239 mg/dL, High Performed By: #### 1 9123-9, 6-3, 98544-5, LIPNF ####[facility] LABCLIA [id number] [address] STATES [facility] HDL CHOLESTEROL, NF 42 mg/dL Normal >39 [facility] Comment on above: Order Comment: Speci men Type: BLOOD SPECIMENOrdering Facility: [facility] Address: [address] [place] [address] Result Comment: 40-5 9 mg/dL, Acceptable >59 mg/dL, High: Negative risk factor for coronary heart disease <40 mg/dL, Low: Positive risk factor for coronary heart disease Performed By: #### 1 9123-9, 3015-3, 72397-6, LIPNF ####[facility] LABCLIA [id number] [address] LDL CHOLESTEROL CALCULATED, NF 81 mg/dL Normal <100 [facility] Comment on above: Order Comment: Speci men Type: BLOOD SPECIMENOrdering Facility: [facility] Address: [address] [place] [address] Result Comment: <100 mg/dL, Optimal 100-129 mg/dL, Near optimal/above optimal 130-159 mg/dL, Borderline high 160-189 mg/dL, High >189 mg/dL, Very high Secondary prevention optimal LDL Cholesterol levels are recommended to be <70 mg/dL LDL cholesterol is calculated using the Davidson-NIH equation. Performed By: #### 1 9123-9, 3015-3, 03431-6, LIPNF ####[facility] LABCLIA [id number] [address] [facility] LDL/HDL RATIO, NF 1.93 mg/dL Normal <2.54 [facility] Comment on above: Order Comment: Speci men Type: BLOOD SPECIMENOrdering Facility: [facility] Address: [address] [place] [address] Result Comment: Refe rence: 1. National Cholesterol Education Program ATP III Guideline At-A-Glance Quick Desk Reference: National Heart, Lung, and Blood [place]. National Institutes of Health. 2001: NIH Publication No. 01-3305. 2. An International Atherosclerosis Society position paper: global recommendations for the management of dyslipidemia: executive summary, Atherosclerosis. 2014: 232(2):410-413. Performed By: #### 1 9123-9, 3016-3, 12718-3, LIPNF ####[facility] LABCLIA [id number] [place] [id number] [place] NON HDL CHOL, NF 94 mg/dL Normal <130 [facility] Comment on above: Order Comment: Speci men Type: BLOOD SPECIMENOrdering Facility: [facility] Address: [address] [place] [address] Result Comment: <130 mg/dL, Optimal 130-159 mg/dL, Near optimal/above optimal 160-189 mg/dL, Borderline high 190-219 mg/dL, High >219 mg/dL, Very high Secondary prevention optimal non HDL Cholesterol levels are recommended to be <100 mg/dL Performed By: #### 1 9123-9, 3016-3, 72441-4, LIPNF ####[facility] LABCLIA [id number] [place] [address] [place] T CHOL/HDL RATIO NF 3.24 mg/dL Normal <5.10 [facility] Comment on above: Order Comment: Mary men Type: BLOOD SPECIMENOrdering Facility: [facility] Address: [address] [place] [address] Performed By: #### 1 9123-9, 3016-3, 08991-9, LIPNF ####[facility] LABCLIA [id number] [place] [id number] [place] TRIGLYCERIDES, NF 59 mg/dL Normal <150 [facility] Comment on above: Order Comment: Speci men Type: BLOOD SPECIMENOrdering Facility: [facility] Address: [address] [place] [address] Result Comment: <150 mg/dL, Normal 150-199 mg/dL, Borderline high 200-499 mg/dL, High >499 mg/dL, Very high Performed By: #### 1 9123-9, 3016-3, 58186-0, LIPNF ####[facility] LABCLIA [id number] [place] [id number] [place] VLDL CHOLESTEROL, NF 9 mg/dL Normal <30 [facility] Comment on above: Order Comment: Speci men Type: BLOOD SPECIMENOrdering Facility: [facility] Address: [address] [place] [address] Performed By: #### 1 9123-9, 6-3, 16092-0, LIPNF ####[facility] LABCLIA [id number] [place] [address] [place] Magnesium SerPl-mCncon 08-30 Magnesium [Mass/Vol] 2.1 mg/dL Normal 1.7-2.3 [facility] Comment on above: Order Comment: Speci men Type: BLOOD SPECIMENOrdering Facility: [facility] Address: [address] [place] [address] Performed By: #### 1 9123-9, 6-3, 27440-8, LIPNF ####[facility] LABIA [id number] [place] [address] [place] TSH SerPl-aCncon 08-30-2025 TSH Qn 0.824 m[IU]/L Normal 0.270-4.200 [facility] Comment on above: Order Comment: Speci men Type: BLOOD SPECIMENOrdering Facility: [facility] Address: [address] [place] [address] Performed By: #### 1 9123-9, 6-3, 16485-5, LIPNF ####[facility] LABCLIA [id number] [place] [address] [place] Vit B12 SerPl-mCncon 025 Cobalamin (Vitamin B12) [Mass/Vol] 341 pg/mL Normal 232-1245 [facility] Comment on above: Order Comment: Speci men Type: BLOOD SPECIMENOrdering Facility: [facility] Address: [address] [place] [address] Performed By: #### 2 132-9 ####[facility] LABCLIA [id number] [address] [facility] 102on 08-29-2025 102 HNO ID: [id number] Author: RELL HART HDA Service: ? Author Type: ? Type: 102 Filed: 08/29/2025 10:59 Note Text: Code Status: DNR-CCA Normal [facility] CNPNon [facility]20[facility] -------- JIAN ALTAMIRANO ([id number]) 1965 M Date Time Provider Department 08/03/25 CLIFFORD ESTES [facility] During your visit today, we recorded the following information about you: Barbara Gutierrez 08/03/2025 10:19 AM Signed Sister/NIVIAGrady Lesli, calling to request prescription for renewal of X2 handicap placards. 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 [phone]. Kaylee Salguero LPN 08/05/2025 9:56 AM Signed Printed and will place on desk to sign. Clifford Estes MD 08/05/2025 10:46 AM Signed Kaylee Ayala LPN 08/05/2025 11:38 AM Signed Notified sister that can be picked up. Allergies As of Date: 08/03/2025 Noted Allergy Reaction CONTRAST DYE 10/29/2010 10 - Anaphylaxis FD AND C BLUE NO.1 07/29/2006 IODINATED CONTRAST MEDIA 12/11/2020 10 - Anaphylaxis MACRODANTIN (NITROFURANTOIN MACRO*10/29/2010 8 - GI Upset NITROFURANTOIN 12/11/2020 8 - GI Upset PHENYTOIN 07/29/2006 Date Reviewed: 07/24/2025 Reviewed by: Daniella Garrett RN - Fully Assessed Reason for Visit: Orders [681] Cmt: Handicap Placards Prescriptions as of 08/05/2025 - metoclopramide HCl (REGLAN) 5 mg tablet Take 1 po up to tid prn constipation - prucalopride 2 mg tablet (MOTEGRITY) Take 1 tablet by mouth once daily. - linaCLOtide (LINZESS) 290 mcg capsule Take 1 po qd - baclofen 5 mg tablet Take 1 tablet by mouth three times a day. - trospium (SANCTURA) 20 mg tablet Take 1 tablet by mouth two times a day as needed (bladder spasm or urine leaking around catheter). - polyethylene glycol 3350 (MIRALAX) 17 gram packet Take 1 Packet by mouth once daily as needed for constipation. Dissolve dose in 4 - 8 ounces of liquid and take as directed. - omeprazole (PRILOSEC) 20 mg capsule Take 1 capsule by mouth daily before breakfast. 1/2 hr before meal. - bisacodyl (DULCOLAX) 10 mg supp Bisacodyl Active 10 MG rectally daily NEEDED for constipation Meds Comments as of 11/01/2020: 11/01/2020 Pt's sister stating pt not taking Cipro at this time, completed course of jaycob. Matt Gutierrez Problem List As Of Date 08/03/2025 Noted Resolved Congenital hydrocephalus (HCC) [Q03.9] 02/02/2008 CP (CEREBRAL PALSY - INFANTILE) HEMIPLEGIA, CON*02/02/2008 05/22/2013 Myelodysplasia [UZR2014] 05/22/2013 Deformity of ankle and foot, acquired [...] of bowel [K59.89] 05/19/2023 Hypokalemia [E87.6] 05/19/2023 Bladder diverticulum [N32.3] 04/12/2024 Bladder stones [N21.0] 04/12/2024 Small bowel obstruction (HCC) [K56.609] 06/11/2024 Letter Text Encounter Status:Closed by KAYLEE SALGUERO on 08/05/25 [facility] 07-24-2025 CNPN Telephone ([facility]) -------- JIAN ALTAMIRANO ([id number]) 1965 M Date Time Provider Department 07/24/25 [facility] During your visit today, we recorded the following information about you: Daniella Garrett RN 07/24/2025 9:39 AM Signed Good morning, I wanted to update you on hannon management. Sister has had to change the catheter 3 times in the past month. She tried the vinegar irrigation but pt had a lot of cramping and discomfort with it. She is still irrigating daily with the distilled water. The blockage happens suddenly and she is not able to irrigate. Do you have any other suggestions? . Allergies As of Date: 07/24/2025 Noted Allergy Reaction CONTRAST DYE 10/29/2010 10 - Anaphylaxis FD AND C BLUE NO.1 07/29/2006 IODINATED CONTRAST MEDIA 12/11/2020 10 - Anaphylaxis MACRODANTIN (NITROFURANTOIN MACRO*10/29/2010 8 - GI Upset NITROFURANTOIN 12/11/2020 8 - GI Upset PHENYTOIN 07/29/2006 Date Reviewed: 07/24/2025 Reviewed by: Daniella Garrett RN - Fully Assessed Reason for Visit: Patient Update [1234] Primary Visit Diagnosis:Cloudy urine [R82.90] Other Visit Diagnoses:Neurogenic bladder [N31.9] Bladder stone [N21.0] Order(s):CT FLANK WO IVCON [[id number]] Order #: [id number] FUTURE Prescriptions as of 07/24/2025 - metoclopramide HCl (REGLAN) 5 mg tablet Take 1 po up to tid prn constipation - prucalopride 2 mg tablet (MOTEGRITY) Take 1 tablet by mouth once daily. - linaCLOtide (LINZESS) 290 mcg capsule Take 1 po qd - baclofen 5 mg tablet Take 1 tablet by mouth three times a day. - trospium (SANCTURA) 20 mg tablet Take 1 tablet by mouth two times a day as needed (bladder spasm or urine leaking around catheter). - polyethylene glycol 3350 (MIRALAX) 17 gram packet Take 1 Packet by mouth once daily as needed for constipation. Dissolve dose in 4 - 8 ounces of liquid and take as directed. - omeprazole (PRILOSEC) 20 mg capsule Take 1 capsule by mouth daily before breakfast. 1/2 hr before meal. - bisacodyl (DULCOLAX) 10 mg supp Bisacodyl Active 10 MG rectally daily NEEDED for constipation Meds Comments as of 11/01/2020: 11/01/2020 Pt's sister stating pt not taking Cipro at this time, completed course of jaycob. Matt Gutierrez Problem List As Of Date 07/24/2025 Noted Resolved Congenital hydrocephalus (HCC) [Q03.9] 02/02/2008 CP (CEREBRAL PALSY - INFANTILE) HEMIPLEGIA, CON*02/02/2008 05/22/2013 Myelodysplasia [IST1219] 05/22/2013 Deformity of ankle and foot, acquired [...] of bowel [K59.89] 05/19/2023 Hypokalemia [E87.6] 05/19/2023 Bladder diverticulum [N32.3] 04/12/2024 Bladder stones [N21.0] 04/12/2024 Small bowel obstruction (HCC) [K56.609] 06/11/2024 Encounter Status:Closed by BREA FLORENTINO on 07/24/25 [facility] 102on 07-04-2025 102 HNO ID: [id number] Author: RELL HART HDA Service: ? Author Type: ? Type: 102 Filed: 07/04/2025 11:01 Note Text: Code Status: DNR-CCA [facility] 07-03-2025 KARENN Telephone (UROMARCO ANTONION) -------- JIAN ALTAMIRANO ([id number]) 1965 M Date Time Provider Department 07/03/25 KHAI ARRIAGA During your visit today, we recorded the following information about you: Khai Arriaga RN 07/03/2025 12:31 PM Addendum Left voicemail with Daniella [facility] home care nurse, and relayed per Brea Florentino MD's verbal order it is ok to change pt catheter every two weeks. Khai Arriaga RN ----- Message from Brea Florentino MD sent at 07/03/2025 10:46 AM EDT ----- Regarding: RE: Catheter How do I give them a verbal ordeR? ----- Message ----- From: Miroslava Adame Sent: 07/03/2025 9:38 AM EDT To: Brea Florentino MD Subject: Catheter Daniella [facility] Home Health Nurse [phone] [facility] Home Health nurse would like verbal approval to change his catheter every two weeks - the irrigating did not go well lots of cramping and it still clogged. Allergies As of Date: 07/03/2025 Noted Allergy Reaction CONTRAST DYE 10/29/2010 10 - Anaphylaxis FD AND C BLUE NO.1 07/29/2006 IODINATED CONTRAST MEDIA 12/11/2020 10 - Anaphylaxis MACRODANTIN (NITROFURANTOIN MACRO*10/29/2010 8 - GI Upset NITROFURANTOIN 12/11/2020 8 - GI Upset PHENYTOIN 07/29/2006 Date Reviewed: 07/03/2025 Reviewed by: Daniella Garrett RN - Fully Assessed Reason for Visit: Orders [681] Prescriptions as of 07/03/2025 - metoclopramide HCl (REGLAN) 5 mg tablet Take 1 po up to tid prn constipation - prucalopride 2 mg tablet (MOTEGRITY) Take 1 tablet by mouth once daily. - linaCLOtide (LINZESS) 290 mcg capsule Take 1 po qd - baclofen 5 mg tablet Take 1 tablet by mouth three times a day. - trospium (SANCTURA) 20 mg tablet Take 1 tablet by mouth two times a day as needed (bladder spasm or urine leaking around catheter). - polyethylene glycol 3350 (MIRALAX) 17 gram packet Take 1 Packet by mouth once daily as needed for constipation. Dissolve dose in 4 - 8 ounces of liquid and take as directed. - omeprazole (PRILOSEC) 20 mg capsule Take 1 capsule by mouth daily before breakfast. 1/2 hr before meal. - bisacodyl (DULCOLAX) 10 mg supp Bisacodyl Active 10 MG rectally daily NEEDED for constipation Meds Comments as of 11/01/2020: 11/01/2020 Pt's sister stating pt not taking Cipro at this time, completed course of atb. 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] 02/02/2008 CP (CEREBRAL PALSY - INFANTILE) HEMIPLEGIA, CON*02/02/2008 05/22/2013 Myelodysplasia [DVH0702] 05/22/2013 Deformity of ankle and foot, acquired [...] of bowel [K59.89] 05/19/2023 Hypokalemia [E87.6] 05/19/2023 Bladder diverticulum [N32.3] 04/12/2024 Bladder stones [N21.0] 04/12/2024 Small bowel obstruction (HCC) [K56.609] 06/11/2024 Encounter Status:Closed by KHAI ARRIAGA on 07/03/25 Normal [facility] Telephone (HCSIND) -------- ADARSHJIAN ([id number]) 1965 M Date Time Provider Department 07/03/25 DANIELLA GARRETT During your visit today, we recorded the following information about you: Daniella Garrett RN 07/03/2025 10:08 AM Signed Good morning, FYI: sister reported that pt fell out of his w/c on 06/23/25 am while getting dressed. He leaned too far forward and fell forward, did strike his head on the floor and suffered a small laceration which family treated with first aid, he did not have any LOC and no change in mental status. Clifford Estes MD 07/03/2025 10:09 AM Signed Noted. Thank you Allergies As of Date: 07/03/2025 Noted Allergy Reaction CONTRAST DYE 10/29/2010 10 - Anaphylaxis FD AND C BLUE NO.1 07/29/2006 IODINATED CONTRAST MEDIA 12/11/2020 10 - Anaphylaxis MACRODANTIN (NITROFURANTOIN MACRO*10/29/2010 8 - GI Upset NITROFURANTOIN 12/11/2020 8 - GI Upset PHENYTOIN 07/29/2006 Date Reviewed: 06/10/2025 Reviewed by: Daniella Garrett RN - Fully Assessed Reason for Visit: Home Care [4073] Cmt: Pt fall Prescriptions as of 07/03/2025 - metoclopramide HCl (REGLAN) 5 mg tablet Take 1 po up to tid prn constipation - prucalopride 2 mg tablet (MOTEGRITY) Take 1 tablet by mouth once daily. - linaCLOtide (LINZESS) 290 mcg capsule Take 1 po qd - baclofen 5 mg tablet Take 1 tablet by mouth three times a day. - trospium (SANCTURA) 20 mg tablet Take 1 tablet by mouth two times a day as needed (bladder spasm or urine leaking around catheter). - polyethylene glycol 3350 (MIRALAX) 17 gram packet Take 1 Packet by mouth once daily as needed for constipation. Dissolve dose in 4 - 8 ounces of liquid and take as directed. - omeprazole (PRILOSEC) 20 mg capsule Take 1 capsule by mouth daily before breakfast. 1/2 hr before meal. - bisacodyl (DULCOLAX) 10 mg supp Bisacodyl Active 10 MG rectally daily NEEDED for constipation Meds Comments as of 11/01/2020: 11/01/2020 Pt's sister stating pt not taking Cipro at this time, completed course of atb. 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] 02/02/2008 CP (CEREBRAL PALSY - INFANTILE) HEMIPLEGIA, CON*02/02/2008 05/22/2013 Myelodysplasia [ERP8106] 05/22/2013 Deformity of ankle and foot, acquired [...] of bowel [K59.89] 05/19/2023 Hypokalemia [E87.6] 05/19/2023 Bladder diverticulum [N32.3] 04/12/2024 Bladder stones [N21.0] 04/12/2024 Small bowel obstruction (HCC) [K56.609] 06/11/2024 Encounter Status:Closed by DANIELLA GARRETT on 07/03/25 Normal [facility] CNOVon 06-07-2025 CNOV Office Visit (UROLMN ) -------- JIAN ALTAMIRANO ([id number]) 1965 M Date Time Provider Department 06/07/25 9:00 AM BREA FLORENTINO During your visit today, we recorded the following information about you: Pulse Blood pressure 81/minute 144/94 Brea Florentino MD 06/07/2025 10:05 AM Signed HPI: 59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 Normal right kidney. 2. The left kidney contains an 8 mm calculus at its midportion and a 3 cm exophytic cyst posteriorly PAST MEDICAL HISTORY Diagnosis Date Bladder stones 04/12/2024 Bowel dysfunction Constipation Hydrocephalus (HCC) Inguinal hernia left - imaging at [place] Sleep apnea Spina bifida (HCC) Urinary retention PAST SURGICAL HISTORY Procedure Laterality Date CRTJ SHUNT [id number] URAL TERMINUS EGD W/O BRSH SPEC VARICIES INJ 08/06/2021 PAST SURGICAL HISTORY OF repair of hamstring PAST SURGICAL HISTORY OF abdominal surgery in childhood Social History Tobacco Use Smoking status: Never Smokeless tobacco: Never Substance Use Topics Alcohol use: No Drug use: No Current Outpatient Medications Medication Sig Dispense Refill metoclopramide HCl (REGLAN) 5 mg tablet Take 1 po up to tid prn constipation 10 tablet 2 prucalopride 2 mg tablet (MOTEGRITY) Take 1 tablet by mouth once daily. 30 tablet 2 linaCLOtide (LINZESS) 290 mcg capsule Take 1 po qd 90 capsule 2 baclofen 5 mg tablet Take 1 tablet by mouth three times a day. 270 Each 3 trospium (SANCTURA) 20 mg tablet Take 1 tablet by mouth two times a day as needed (bladder spasm or urine leaking around catheter). 21 tablet 0 polyethylene glycol 3350 (MIRALAX) 17 gram packet Take 1 Packet by mouth once daily as needed for constipation. Dissolve dose in 4 - 8 ounces of liquid and take as directed. bisacodyl (DULCOLAX) 10 mg supp Bisacodyl Active 10 MG rectally daily NEEDED for constipation omeprazole (PRILOSEC) 20 mg capsule Take 1 capsule by mouth daily before breakfast. 1/2 hr before meal. (Patient not taking: Reported on 04/05/2024) 30 capsule 5 No current facility-administered medications for this visit. ROS: Constitutional: negative Gastrointestinal: negative PHYSICAL EXAM: BP 144/94 (BP Site: Left Arm, BP Position: Sitting, BP Cuff Size: Regular Adult) Pulse 81 GENERAL: Wnl nutrition, no deformities, healthy appearing ABDOMEN: Soft, nontender, nondistended, no masses. No hernia Lower midline well healed Hannon draining clear urine DATA/OR LABS TO BE REVIEWED: (Simple=1 data point; Complex= 2 or more) No results found for: PSA Creatinine (mg/dL) Date Value 05/08/2025 0.66 06/12/2024 0.51 06/11/2024 0.49 04/13/2024 0.74 04/12/2024 0.83 07/30/2021 0.73 10/02/2020 0.72 09/11/2020 0.68 08/22/2018 0.76 05/22/2013 0.53 No results found for: TESTOST A/P: 59M w spina bifida, shunted hydrocephalus, NGB/B Large bladder stone in R posterior tic + bl bladder containing hernias with stone on left, stone within bladder lumen Now sp open cystolithotomy and bladder diverticulectomy 04/12/24 RBUS, Cr, cystatin C all normal Doing well More clogging that normal Rec vinegar instillations Rbus, bmp and cystatin and vv in 1 year MD Adrian Knutson Molly, MD 06/07/2025 9:54 AM Signed Instill 30-50mls of dilute vinegar into your bladder and cap the tube for 10-20 minutes. Then irrigate Amount of 5% White Vinegar Solution to Mix In: If Your Normal Bladder Irrigation Amount Is: 0.5 teaspoon 50 mL 1 teaspoon (5 ml) 100 mL 2.5 teaspoons (12.5 mL) 250 mL irrigation 5 teaspoons (25 mL) 500 mL irrigation 10 teaspoons (50 mL) 1000 mL irrigation About 6 ounces 1 gallon irrigation Referring Provider: BREA FLORENTINO [[id number]] Allergies As of Date: 06/07/2025 Noted Allergy Reaction CONTRAST DYE 10/29/2010 10 - Anaphylaxis FD AND C BLUE NO.1 07/29/2006 IODINATED CONTRAST MEDIA 12/11/2020 10 - Anaphylaxis MACRODANTIN (NITROFURANTOIN MACRO*10/29/2010 8 - GI Upset NITROFURANTOIN 12/11/2020 8 - GI Upset PHENYTOIN 07/29/2006 Date Reviewed: 06/07/2025 Reviewed by: Roslyn Celestin MA - Fully Assessed Reason for Visit: Follow Up [171] Primary Visit Diagnosis:Neurogenic bladder [N31.9] Other Visit Diagnoses: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 Normal [facility] Basic metabolic 2000 panelon 05-08-2025 Anion gap [Moles/Vol] 12 mmol/L Normal - [facility] Comment on above: Order Comment: Speci men Type: BLOOD SPECIMENOrdering Facility: [facility] Address: [address] [place] [address] Performed By: #### 2 4321-2 ####[facility] [id number] [place] [address] [place] Calcium [Mass/Vol] 9.6 mg/dL Normal 8.5-10.2 [facility] Comment on above: Order Comment: Speci men Type: BLOOD SPECIMENOrdering Facility: [facility] Address: [address] [place] [address] Performed By: #### 2 4321-2 ####[facility] MILLTOWNCLIA [id number] [place] [address] [place] Chloride [Moles/Vol] 97 mmol/L Low 98-107 [facility] Comment on above: Order Comment: Speci men Type: BLOOD SPECIMENOrdering Facility: [facility] Address: [address] [place] [address] Performed By: #### 2 4321-2 ####[facility] [id number] [place] [address] [place] CO2 [Moles/Vol] 20 mmol/L Low 22-30 [facility] Comment on above: Order Comment: Speci men Type: BLOOD SPECIMENOrdering Facility: [facility] Address: [address] [place] [address] Performed By: #### 2 4321-2 ####[facility] [id number] [place] [address] [place] Creatinine [Mass/Vol] 0.66 mg/dL Low 0.73-1.22 [facility] Comment on above: Order Comment: Speci men Type: BLOOD SPECIMENOrdering Facility: [facility] Address: [address] [place] [address] Performed By: #### 2 4321-2 ####[facility] [id number] [place] [address] [place] Creatinine and Glomerular filtration rate.predicted panel (S/P/Bld) 109 mL/min/1.73m??? Normal >=60 [facility] Comment on above: Order Comment: Mary gallegos Type: BLOOD SPECIMENOrdering Facility: [facility] Address: [address] [id number] Result Comment: Zoey mated Glomerular Filtration Rate (eGFR) is calculated using the 2020 CKD-EPI creatinine equation. This equation utilizes serum creatinine, sex, and age as parameters. The creatinine assay has traceable calibration to isotope dilution-mass spectrometry. Refer to KDIGO guidelines for clinical interpretation. In patients with unstable renal function, e.g. those with acute kidney injury, the eGFR may not accurately reflect actual GFR. Performed By: #### 2 4321-2 ####[facility] [id number] [place] [address] [place] Glucose [Mass/Vol] 104 mg/dL High 74-99 [facility] Comment on above: Order Comment: Mary gallegos Type: BLOOD SPECIMENOrdering Facility: [facility] Address: [address] [place] [address] Result Comment: The [place] Diabetes Association (ADA) provides guidance for cutoff values for fasting glucose and random glucose. The ADA defines fasting as no caloric intake for at least 8 hours. Fasting plasma glucose results between 100 to 125 mg/dL indicate increased risk for diabetes (prediabetes). Fasting plasma glucose results greater than or equal to 126 mg/dL meet the criteria for diagnosis of diabetes. In the absence of unequivocal hyperglycemia, results should be confirmed by repeat testing. In a patient with classic symptoms of hyperglycemia or hyperglycemic crisis, random plasma glucose results greater than or equal to 200 mg/dL meet the criteria for diagnosis of diabetes. Reference: Standards of Medical Care in Diabetes 2016, [place] Diabetes Association. Diabetes Care. 2016.39(Suppl 1). Performed By: #### 2 4321-2 ####[facility] [id number] [place] [address] [place] Potassium [Moles/Vol] 4.0 mmol/L Normal 3.7-5.1 [facility] Comment on above: Order Comment: Mary gallegos Type: BLOOD SPECIMENOrdering Facility: [facility] Address: [address] [id number] Performed By: #### 2 4321-2 ####[facility] [id number] [place] [address] [place] Sodium [Moles/Vol] 129 mmol/L Low 136-144 [facility] Comment on above: Order Comment: Speci men Type: BLOOD SPECIMENOrdering Facility: [facility] Address: [address] [place] [address] Performed By: #### 2 4321-2 ####[facility] [id number] [place] [address] [place] Urea nitrogen [Mass/Vol] 11 mg/dL Normal 9-24 [facility] Comment on above: Order Comment: Speci men Type: BLOOD SPECIMENOrdering Facility: [facility] Address: [address] [place] [address] Performed By: #### 2 4321-2 ####[facility] [id number] [place] [address] [place] CYSTATIN Con 05-08-2025 Cystatin C [Mass/Vol] 0.94 mg/L Normal 0.61-0.95 [facility] Comment on above: Order Comment: Speci men Type: BLOOD SPECIMENOrdering Facility: [facility] Address: [address] [place] [address] Performed By: #### C YS ####[facility] LABCLIA [id number] [place] [address] [place] CYSTATIN C EGFR 85 mL/min/1.73m??? Normal >=60 C [facility] Comment on above: Order Comment: Speci men Type: BLOOD SPECIMENOrdering Facility: [facility] Address: [address] [place] [address] Result Comment: Zoye mated Glomerular Filtration Rate (eGFR) is calculated using the 2012 CKD-EPI cystatin C equation. This equation utilizes serum cystatin C, sex, and age as parameters. The cystatin C assay has traceable calibration to the ERM-DA471/IF reference material. Refer to KDIGO guidelines for clinical interpretation. In patients with unstable renal function, e.g. those with acute kidney injury, the eGFR may not accurately reflect actual GFR. Performed By: #### C YSTC ####[facility] LABCLIA [id number] [address] STATES OF [facility] US KIDNEY/BLADDERon 05-08-20 US KIDNEY/BLADDER * * *Final Report* * * DATE OF EXAM: May 08 2025 8:24AM U 1055 - US KIDNEY/BLADDER / PROCEDURE REASON: Neurogenic bladder * * * * Physician Interpretation * * * * EXAMINATION: RENAL ULTRASOUND CLINICAL HISTORY: Neurogenic bladder TECHNIQUE: Sonography of the kidneys and urinary bladder was performed. Images were obtained and stored in a permanent archive. MQ: UR_1 COMPARISON: CT study from February 2022 and prior ultrasound from January 2021 RESULT: Right Kidney: -Renal length: 10.9 cm -Parenchyma: Normal parenchymal echogenicity. Normal parenchymal thickness. -Collecting system: No hydronephrosis. -Calculus: No echogenic, shadowing calculus. -Lesion: None. Left Kidney: -Renal length: 10.5 cm -Parenchyma: Normal parenchymal echogenicity. Normal parenchymal thickness. -Collecting system: No hydronephrosis. -Calculus: 8 mm calculus at the mid kidney -Lesion: 3 cm simple cyst posteriorly Bladder: Collapsed with a Hannon catheter in place. IMPRESSION: 1. Normal right kidney. 2. 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 Author Type: ? Type: 102 Filed: 05/03/2025 09:36 Note Text: Code Status: DNR-CCA Normal [facility] Bacteria Ur Culton 5 Bacteria identified Cx Nom (U) ORGANISM ID: 1 >=100,000 CFU/ml Mixed microbiota No further workup. Mixed microbiota can be due to???urine???contaminati on with skin bacteria at time of collection or presence of a long-term urinary catheter. If a new culture is needed, please consider re-education of the patient on proper midstream co llection technique or straight catheterization for???urine???collection . Normal [facility] Comment on above: Performed By: #### 2 4356-8, 630-4 ####[facility] LABCLIA [id number] [place] [facility] [id number] [address] [place] Urinalysis complete panel (U )on 04-25-2025 BACTERIA UL >9821 High Negative [facility] Comment on above: Order Comment: Speci men Type: URINE SPECIMENOrdering Facility: [facility] Address: [address] [place] [address], [place] [address] Performed By: #### 2 4356-8, 630-4 ####[facility] LABCLIA [id number] [place] [address] [place] [address] [place] Bilirubin Ql (U) Negative Normal Negative [facility] Comment on above: Order Comment: Speci men Type: URINE SPECIMENOrdering Facility: [facility] Address: [address] [place] [address], [place] [address] Performed By: #### 2 4356-8, 630-4 ####[facility] LABCLIA [id number] [place] [facility] [address] [place] [address] [place] Clarity (Unsp spec) Turbid Abnormal [facility] Comment on above: Order Comment: Speci men Type: URINE SPECIMENOrdering Facility: [facility] Address: [address] [place] [address], [place] [address] Performed By: #### 2 4356-8, 630-4 ####[facility] LABCLIA [id number] [place] [address] [place] [address] [place] Color (U) Yellow Normal Yellow [facility] Comment on above: Order Comment: Speci men Type: URINE SPECIMENOrdering Facility: [facility] Address: [address] [place] [address], [place] [address] Performed By: #### 2 4356-8, 630-4 ####[facility] LABCLIA [id number] [place] [address], [id number] [place] Epithelial cells LM.HPF (Urine sed) [#/Area] None Seen Normal [facility] Comment on above: Order Comment: Speci men Type: URINE SPECIMENOrdering Facility: [facility] Address: [address] [place] [address], [place] [address] Performed By: #### 2 4356-8, 630-4 ####[facility] LABCLIA [id number] [facility] [address], [id number] OF [place] Glucose Test strip (U) [Mass/Vol] Negative Normal Negative [facility] Comment on above: Order Comment: Speci men Type: URINE SPECIMENOrdering Facility: [facility] Address: [address] [place] [address], [place] [address] Performed By: #### 2 4356-8, 020-4 ####[facility] LABCLIA [id number] [facility] [address] [place] [address] [place] Hemoglobin Ql (U) Trace Abnormal Negative [facility] Comment on above: Order Comment: Speci men Type: URINE SPECIMENOrdering Facility: [facility] Address: [address] [place] [address], [place] [address] Performed By: #### 2 4356-8, 630-4 ####[facility] LABCLIA [id number] [facility] [address], [id number] [place] Hyaline casts (Urine sed) [#/Area] 1-3 /LPF Abnormal 0 /LPF [facility] Comment on above: Order Comment: Speci men Type: URINE SPECIMENOrdering Facility: [facility] Address: [address] [place] [address], [place] [address] Performed By: #### 2 4356-8, 630-4 ####[facility] LABCLIA [id number] [address] [id number], [place] [address] [place] Ketones Ql (U) Negative Normal Negative [facility] Comment on above: Order Comment: Speci men Type: URINE SPECIMENOrdering Facility: [facility] Address: [address] [place] [address], [place] [address] Performed By: #### 2 4356-8, 630-4 ####[facility] LABCLIA [id number] [id number], [place] [address] [place] Leukocyte esterase Test strip Ql (U) 3+ Abnormal Negative [facility] Comment on above: Order Comment: Speci men Type: URINE SPECIMENOrdering Facility: [facility] Address: [address] [place] [address], [place] [address] Performed By: #### 2 43568, 630-4 ####[facility] LABCLIA [id number] [address] [id number], [place] [address] [place] Nitrite Ql (U) Positive Abnormal Negative [facility] Comment on above: Order Comment: Speci men Type: URINE SPECIMENOrdering Facility: [facility] Address: [address] [place] [address], [place] [address] Performed By: #### 2 43568, 630-4 ####[facility] LABCLIA [id number] [address] [id number], [place] [address] [place] pH (U) 7.5 [pH] Normal <8.5 [facility] Comment on above: Order Comment: Speci men Type: URINE SPECIMENOrdering Facility: [facility] Address: [address] [place] [address], [place] [id number] Performed By: #### 2 4356-8, 630-4 ####[facility] LABCLIA [id number] [address] [id number], [place] [address] [place] Protein (U) [Mass/Vol] 2+ Abnormal Negative [facility] Comment on above: Order Comment: Speci men Type: URINE SPECIMENOrdering Facility: [facility] Address: [address] [place] [address], [place] [address] Performed By: #### 2 4356-8, 630-4 ####[facility] LABCLIA [id number] [facility] [address] [place] [address] [place] RBC LM.HPF (Urine sed) [#/Area] 3-5 /HPF Abnormal 0-2 /HPF [facility] Comment on above: Order Comment: Speci men Type: URINE SPECIMENOrdering Facility: [facility] Address: [address] [place] [address], [place] [address] Performed By: #### 2 4356-8, 630-4 ####[facility] LABIA [id number] [address] [place] [address] [place] Specific gravity (U) [Rel density] 1.017 Normal 1.005-1.030 [facility] Comment on above: Order Comment: Speci men Type: URINE SPECIMENOrdering Facility: [facility] Address: [address] [place] [address], [place] [address] Performed By: #### 2 4356-8, 630-4 ####[facility] LABCLIA [id number] [facility] [address] [place] [address] [place] Triple phosphate crystals LM.HPF (Urine sed) [#/Area] Many Abnormal None Seen [facility] Comment on above: Order Comment: Speci men Type: URINE SPECIMENOrdering Facility: [facility] Address: [address] [place] [address], [place] [address] Performed By: #### 2 4356-8, 630-4 ####[facility] LABCLIA [id number] [facility] [address] [place] [address] [place] Urobilinogen Ql (U) 0.2 EU/dL Normal 0.2-1.0 EU/dL [facility] Comment on above: Order Comment: Speci men Type: URINE SPECIMENOrdering Facility: [facility] Address: [address] [place] [address], [place] [address] Performed By: #### 2 4356-8, 630-4 ####[facility] [id number] [address] [place] WBC LM.HPF (Urine sed) [#/Area] /[HPF] Abnormal 0-5 /HPF [facility] Comment on above: Order Comment: Speci men Type: URINE SPECIMENOrdering Facility: [facility] Address: [address] [place] [address], [place] [address] Performed By: #### 2 4356-8, 630-4 ####[facility] LABIA [id number] [place] [id number] [place] CNPNon 03-13-2025 CNPN Telephone (HCSIND) -------- JIAN ALTAMIRANO ([id number]) 1965 M Date Time Provider Department 03/13/25 DANIELLA GARRETT HCSALFREDO During your visit today, we recorded the following information about you: Daniella Garrett RN 03/13/2025 10:01 AM Signed Good morning, Pt has had trouble with this catheter the last 2 months and required an extra catheter; I spoke with [facility], his DME supplier, and they informed me that his insurance will pnly cover 1 per month.. They also informed me that if a script was sent to them stating that pt medically needs 2 16 fr/10 ml balloon hannon catheters, 2 10 ml hannon insertion trays and 2 2000 ml bedside drainage bags; they can pursue getting the extra supplies covered. Could you have your staff follow up on this please? The DME is [facility] and their fax number is [phone]. Thank you very much! Clifford Estes MD 03/13/2025 11:55 AM Signed printed Wilfredo Monet MA 03/13/2025 2:48 PM Signed Faxed. Wilfredo Monet [place] Allergies As of Date: 03/13/2025 Noted Allergy Reaction CONTRAST DYE 10/29/2010 10 - Anaphylaxis FD AND C BLUE NO.1 07/29/2006 IODINATED CONTRAST MEDIA 12/11/2020 10 - Anaphylaxis MACRODANTIN (NITROFURANTOIN MACRO*10/29/2010 8 - GI Upset NITROFURANTOIN 12/11/2020 8 - GI Upset PHENYTOIN 07/29/2006 Date Reviewed: 02/08/2025 Reviewed by: Daniella Garrett RN - Fully Assessed Reason for Visit: Home Care [4073] Patient Question [7247] Primary Visit Diagnosis:Spina bifida with hydrocephalus, unspecified spinal region (HCC) [Q05.4] Other Visit Diagnoses:Urinary retention [R33.9] Bladder diverticulum [N32.3] Neurogenic bladder [N31.9] Order(s):DME SUPPLY OR ACCESSORY, NOS [[id number]] Order #: [id number] Prescriptions as of 03/13/2025 - prucalopride 2 mg tablet (MOTEGRITY) Take 1 tablet by mouth once daily. - metoclopramide HCl (REGLAN) 5 mg tablet Take 1 po up to tid prn constipation - baclofen 5 mg tablet Take 1 tablet by mouth three times a day. - linaCLOtide (LINZESS) 290 mcg capsule Take 1 po qd - trospium (SANCTURA) 20 mg tablet Take 1 tablet by mouth two times a day as needed (bladder spasm or urine leaking around catheter). - polyethylene glycol 3350 (MIRALAX) 17 gram packet Take 1 Packet by mouth once daily as needed for constipation. Dissolve dose in 4 - 8 ounces of liquid and take as directed. - omeprazole (PRILOSEC) 20 mg capsule Take 1 capsule by mouth daily before breakfast. 1/2 hr before meal. - bisacodyl (DULCOLAX) 10 mg supp Bisacodyl Active 10 MG rectally daily NEEDED for constipation Meds Comments as of 11/01/2020: 11/01/2020 Pt's sister stating pt not taking Cipro at this time, completed course of jaycob. Matt Gutierrez Problem List As Of Date 03/13/2025 Noted Resolved Congenital hydrocephalus (HCC) [Q03.9] 02/02/2008 CP (CEREBRAL PALSY - INFANTILE) HEMIPLEGIA, CON*02/02/2008 05/22/2013 Myelodysplasia [CMX8043] 05/22/2013 Deformity of ankle and foot, acquired [...] of bowel [K59.89] 05/19/2023 Hypokalemia [E87.6] 05/19/2023 Bladder diverticulum [N32.3] 04/12/2024 Bladder stones [N21.0] 04/12/2024 Small bowel obstruction (HCC) [K56.609] 06/11/2024 Encounter Status:Closed by WILFREDO MONET on 03/13/25 [facility] 102on 02-20-2025 102 HNO ID: [id number] Author: RELL HART HDA Service: ? Author Type: ? Type: 102 Filed: 02/20/2025 10:04 Note Text: Code Status: DNR-CCA [facility] 102on 01-02-2025 102 HNO ID: [id number] Author: LAURA NOONAN HDA Service: ? Author Type: ? Type: 102 Filed: 01/02/2025 10:01 Note Text: Code Status: DNR-CCA Normal [facility] CNPNon 11-20-2024 CNPN Telephone (ICUHOSP) -------- JIAN ALTAMIRANO ([id number]) 1965 M Date Time Provider Department 11/20/24 KAYLIE MARES ICUHOSP During your visit today, we recorded the following information about you: Nayely Nazario MD 11/21/2024 3:34 PM Signed He can continue motegrity if helping and no side effects. Allergies As of Date: 11/20/2024 Noted Allergy Reaction CONTRAST DYE 10/29/2010 10 - Anaphylaxis FD AND C BLUE NO.1 07/29/2006 IODINATED CONTRAST MEDIA 12/11/2020 10 - Anaphylaxis MACRODANTIN (NITROFURANTOIN MACRO*10/29/2010 8 - GI Upset NITROFURANTOIN 12/11/2020 8 - GI Upset PHENYTOIN 07/29/2006 Date Reviewed: 11/16/2024 Reviewed by: Daniella Garrett RN - Fully Assessed Prescriptions as of 11/22/2024 - prucalopride (MOTEGRITY) 2 mg tab tablet Take 1 tablet (2 mg) by mouth once daily. - baclofen 5 mg tablet Take 1 tablet by mouth three times a day. - linaCLOtide (LINZESS) 290 mcg capsule Take 1 po qd - metoclopramide HCl (REGLAN) 5 mg tablet Take 1 po up to tid prn constipation - trospium (SANCTURA) 20 mg tablet Take 1 tablet by mouth two times a day as needed (bladder spasm or urine leaking around catheter). - polyethylene glycol 3350 (MIRALAX) 17 gram packet Take 1 Packet by mouth once daily as needed for constipation. Dissolve dose in 4 - 8 ounces of liquid and take as directed. - omeprazole (PRILOSEC) 20 mg capsule Take 1 capsule by mouth daily before breakfast. 1/2 hr before meal. - bisacodyl (DULCOLAX) 10 mg supp Bisacodyl Active 10 MG rectally daily NEEDED for constipation Meds Comments as of 11/01/2020: 11/01/2020 Pt's sister stating pt not taking Cipro at this time, completed course of atb. 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 Author Type: ? Type: 102 Filed: 10/31/2024 11:46 Note Text: Code Status: DNR-CCA Normal [facility] Basic Metabolic Profile (BMP )on 06-15-2024 BUN Normal 7-18 [facility] Comment on above: Result Comment: Canc elled via OM: Order cancelled - Patient discharged Performed By: #### L 501.2450, L100.0100, L500.4050, L503.6005 #### [facility] [address] [place], [address] BUN/CRE Normal 10-20 [facility] Comment on above: Result Comment: Canc elled via OM: Order cancelled - Patient discharged Performed By: #### L 501.2450, L100.0100, L500.4050, L503.6005 #### [facility] [address] [place], [address] CA,Total Normal 8.5-10.1 [facility] Comment on above: Result Comment: Canc elled via OM: Order cancelled - Patient discharged Performed By: #### L 501.2450, L100.0100, L500.4050, L503.6005 #### [facility] [address] [place], [address] CL Normal 98-107 [facility] Comment on above: Result Comment: Canc elled via OM: Order cancelled - Patient discharged Performed By: #### L 501.2450, L100.0100, L500.4050, L503.6005 #### [facility] [address] [place], [address] CO2 Normal 21.0-32.0 [facility] Comment on above: Result Comment: Canc elled via OM: Order cancelled - Patient discharged Performed By: #### L 501.2450, L100.0100, L500.4050, L503.6005 #### [facility] [address] [place], [address] CREAT,SERUM Normal 0.70-1.30 [facility] Comment on above: Result Comment: Canc elled via OM: Order cancelled - Patient discharged Performed By: #### L 501.2450, L100.0100, L500.4050, L503.6005 #### [facility] [address] [place], [address] EST GFR Normal >60 [facility] Comment on above: Result Comment: Canc elled via OM: Order cancelled - Patient discharged Performed By: #### L 501.2450, L100.0100, L500.4050, L503.6005 #### [facility] [address] [place], [address] EST GFR - AA Normal >60 [facility] Comment on above: Result Comment: Canc elled via OM: Order cancelled - Patient discharged Performed By: #### L 501.2450, L100.0100, L500.4050, L503.6005 #### [facility] [address] [place], [address] GAP Normal 5-15 [facility] Comment on above: Result Comment: Canc elled via OM: Order cancelled - Patient discharged Performed By: #### L 501.2450, L100.0100, L500.4050, L503.6005 #### [facility] [address] [place], [address] GLU Normal 74-106 [facility] Comment on above: Result Comment: Canc elled via OM: Order cancelled - Patient discharged Performed By: #### L 501.2450, L100.0100, L500.4050, L503.6005 #### [facility] [address] [place], [address] Potassium Normal 3.5-5.1 [facility] Comment on above: Result Comment: Canc elled via OM: Order cancelled - Patient discharged Performed By: #### L 501.2450, L100.0100, L500.4050, L503.6005 #### [facility] [address] [place], [address] Basic Metabolic Profile (BMP) Normal 136-145 [facility] Comment on above: Result Comment: Canc elled via OM: Order cancelled - Patient discharged Performed By: #### L 501.2450, L100.0100, L500.4050, L503.6005 #### [facility] [address] [place], [address] CBC W/Diff, Automatedon 08-0 -2023 Absolute Neut Normal 2.0-7.7 [facility] Comment on above: Result Comment: Canc elled via OM: Order cancelled - Patient discharged Performed By: #### L 501.2450, L100.0100, L500.4050, L503.6005 #### [facility] [address] [place], [address] HCT Normal 40-54 [facility] Comment on above: Result Comment: Canc elled via OM: Order cancelled - Patient discharged Performed By: #### L 501.2450, L100.0100, L500.4050, L503.6005 #### [facility] [address] [place], [address] HGB Normal 13.0-16.5 [facility] Comment on above: Result Comment: Canc elled via OM: Order cancelled - Patient discharged Performed By: #### L 501.2450, L100.0100, L500.4050, L503.6005 #### [facility] [address] [place], [address] MCH Normal 27.0-32.0 [facility] Comment on above: Result Comment: Canc elled via OM: Order cancelled - Patient discharged Performed By: #### L 501.2450, L100.0100, L500.4050, L503.6005 #### [facility] [address] [place], [address] MCHC Normal 32-36 [facility] Comment on above: Result Comment: Canc elled via OM: Order cancelled - Patient discharged Performed By: #### L 501.2450, L100.0100, L500.4050, L503.6005 #### [facility] [address] [place], [address] MCV Normal 80-94 [facility] Comment on above: Result Comment: Canc elled via OM: Order cancelled - Patient discharged Performed By: #### L 501.2450, L100.0100, L500.4050, L503.6005 #### [facility] [address] [place], [address] NEUT% Normal 47-70 [facility] Comment on above: Result Comment: Canc elled via OM: Order cancelled - Patient discharged Performed By: #### L 501.2450, L100.0100, L500.4050, L503.6005 #### [facility] [address] [place], [address] PLT Normal 150-450 [facility] Comment on above: Result Comment: Canc elled via OM: Order cancelled - Patient discharged Performed By: #### L 501.2450, L100.0100, L500.4050, L503.6005 #### [facility] [address] [place], [address] RBC Normal 4.6-6.2 [facility] Comment on above: Result Comment: Canc elled via OM: Order cancelled - Patient discharged Performed By: #### L 501.2450, L100.0100, L500.4050, L503.6005 #### [facility] [address] [place], [address] RDW CV Normal 11.6-14.6 [facility] Comment on above: Result Comment: Canc elled via OM: Order cancelled - Patient discharged Performed By: #### L 501.2450, L100.0100, L500.4050, L503.6005 #### [facility] [address] [place], [address] RDW SD Normal 35.1-43.9 [facility] Comment on above: Result Comment: Canc elled via OM: Order cancelled - Patient discharged Performed By: #### L 501.2450, L100.0100, L500.4050, L503.6005 #### [facility] [address] [place], [address] WBC Normal 4.4-11.0 [facility] Comment on above: Result Comment: Canc elled via OM: Order cancelled - Patient discharged Performed By: #### L 501.2450, L100.0100, L500.4050, L503.6005 #### [facility] [address] [place], [address] Basic Metabolic Profile (BMP )on 06-14-2024 BUN Normal 7-18 [facility] Comment on above: Result Comment: Canc elled via OM: Order cancelled - Patient discharged Performed By: #### M 100.2200, L4 #### [facility] [address] [place], [address] BUN/CRE Normal 10-20 [facility] Comment on above: Result Comment: Canc elled via OM: Order cancelled - Patient discharged Performed By: #### M 100.2200, L4.2010 #### [facility] [address] [place], [address] CA,Total Normal 8.5-10.1 [facility] Comment on above: Result Comment: Canc elled via OM: Order cancelled - Patient discharged Performed By: #### M .2199, #### [facility] [address] [place], [address] CL Normal 98-107 [facility] Comment on above: Result Comment: Canc elled via OM: Order cancelled - Patient discharged Performed By: #### M 100.2199, #### [facility] [address] [place], [address] CO2 Normal 21.0-32.0 [facility] Comment on above: Result Comment: Canc elled via OM: Order cancelled - Patient discharged Performed By: #### M , #### [facility] [address] [place], [address] CREAT,SERUM Normal 0.70-1.30 [facility] Comment on above: Result Comment: Canc elled via OM: Order cancelled - Patient discharged Performed By: #### M , L4 #### [facility] [address] [place], [address] EST GFR Normal >60 [facility] Comment on above: Result Comment: Canc elled via OM: Order cancelled - Patient discharged Performed By: #### M , L4 #### [facility] [address] [place], [address] EST GFR - AA Normal >60 [facility] Comment on above: Result Comment: Canc elled via OM: Order cancelled - Patient discharged Performed By: #### M , L4 #### [facility] [address] [place], [address] GAP Normal 5-15 [facility] Comment on above: Result Comment: Canc elled via OM: Order cancelled - Patient discharged Performed By: #### M , #### [facility] [address] [place], [address] GLU Normal 74-106 [facility] Comment on above: Result Comment: Canc elled via OM: Order cancelled - Patient discharged Performed By: #### M 100.2199, #### [facility] [address] [place], [address] Potassium Normal 3.5-5.1 [facility] Comment on above: Result Comment: Canc elled via OM: Order cancelled - Patient discharged Performed By: #### M 100.2199, #### [facility] [address] [place], [address] Basic Metabolic Profile (BMP) Normal 136-145 [facility] Comment on above: Result Comment: Canc elled via OM: Order cancelled - Patient discharged Performed By: #### M .2199, #### [facility] [address] [place], [address] CBC W/Diff, Automatedon 08-0 -2023 Absolute Neut Normal 2.0-7.7 [facility] Comment on above: Result Comment: Canc elled via OM: Order cancelled - Patient discharged Performed By: #### M 100.2199, #### [facility] [address] [place], [address] HCT Normal 40-54 [facility] Comment on above: Result Comment: Canc elled via OM: Order cancelled - Patient discharged Performed By: #### M 100.2199, L4 #### [facility] [address] [place], [address] HGB Normal 13.0-16.5 [facility] Comment on above: Result Comment: Canc elled via OM: Order cancelled - Patient discharged Performed By: #### M 100.2199, #### [facility] [address] [place], [address] MCH Normal 27.0-32.0 [facility] Comment on above: Result Comment: Canc elled via OM: Order cancelled - Patient discharged Performed By: #### M 100.2199, L400.2010 #### [facility] [address] [place], [address] MCHC Normal 32-36 [facility] Comment on above: Result Comment: Canc elled via OM: Order cancelled - Patient discharged Performed By: #### M 100.2199, L4 #### [facility] [address] [place], [address] MCV Normal 80-94 [facility] Comment on above: Result Comment: Canc elled via OM: Order cancelled - Patient discharged Performed By: #### M 100.2199, L4 #### [facility] [address] [place], [address] NEUT% Normal 47-70 [facility] Comment on above: Result Comment: Canc elled via OM: Order cancelled - Patient discharged Performed By: #### M .2199, L4 #### [facility] [address] [place], [address] PLT Normal 150-450 [facility] Comment on above: Result Comment: Canc elled via OM: Order cancelled - Patient discharged Performed By: #### M 100.2199, L400 #### [facility] [address] [place], [address] RBC Normal 4.6-6.2 [facility] Comment on above: Result Comment: Canc elled via OM: Order cancelled - Patient discharged Performed By: #### M 100.2199, L400 #### [facility] [address] [place], [address] RDW CV Normal 11.6-14.6 [facility] Comment on above: Result Comment: Canc elled via OM: Order cancelled - Patient discharged Performed By: #### M 100.2200, L400.2010 #### [facility] [address] [place], [address] RDW SD Normal 35.1-43.9 [facility] Comment on above: Result Comment: Canc elled via OM: Order cancelled - Patient discharged Performed By: #### M 100.2200, L400.2010 #### [facility] [address] [place], [address] WBC Normal 4.4-11.0 [facility] Comment on above: Result Comment: Canc elled via OM: Order cancelled - Patient discharged Performed By: #### M 100.0, L400.2010 #### [facility] [address] [place], [address] Basic Metabolic Profile (BMP )on 06-13-2024 BUN Normal 7-18 [facility] Comment on above: Result Comment: Canc elled via OM: Order cancelled - Patient discharged Performed By: #### L 100.0100, L500.2500 ####[facility] [address] [place], [address] BUN/CRE Normal 10-20 [facility] Comment on above: Result Comment: Canc elled via OM: Order cancelled - Patient discharged Performed By: #### L 100.0100, L500.2500 ####[facility] [address] [place], [address] CA,Total Normal 8.5-10.1 [facility] Comment on above: Result Comment: Canc elled via OM: Order cancelled - Patient discharged Performed By: #### L 100.0100, L500.2500 ####[facility] [address] [place], [address] CL Normal 98-107 [facility] Comment on above: Result Comment: Canc elled via OM: Order cancelled - Patient discharged Performed By: #### L 100.0100, L500.2500 ####[facility] [address] [place], [address] CO2 Normal 21.0-32.0 [facility] Comment on above: Result Comment: Canc elled via OM: Order cancelled - Patient discharged Performed By: #### L 100.0100, L500.2500 ####[facility] [address] [place], [address] CREAT,SERUM Normal 0.70-1.30 [facility] Comment on above: Result Comment: Canc elled via OM: Order cancelled - Patient discharged Performed By: #### L 100.0100, L500.2500 ####[facility] [address] [place], [address] EST GFR Normal >60 [facility] Comment on above: Result Comment: Canc elled via OM: Order cancelled - Patient discharged Performed By: #### L 100.0100, L500.2500 ####[facility] [address] [place], [address] EST GFR - AA Normal >60 [facility] Comment on above: Result Comment: Canc elled via OM: Order cancelled - Patient discharged Performed By: #### L 100.0100, L500.2500 ####[facility] [address] [place], [address] GAP Normal 5-15 [facility] Comment on above: Result Comment: Canc elled via OM: Order cancelled - Patient discharged Performed By: #### L 100.0100, L500.2500 ####[facility] [address] [place], [address] GLU Normal 74-106 [facility] Comment on above: Result Comment: Canc elled via OM: Order cancelled - Patient discharged Performed By: #### L 100.0100, L500.2500 ####[facility] [address] [place], [address] Potassium Normal 3.5-5.1 [facility] Comment on above: Result Comment: Canc elled via OM: Order cancelled - Patient discharged Performed By: #### L 100.0100, L500.2500 ####[facility] [address] [place], [address] Basic Metabolic Profile (BMP) Normal 136-145 [facility] Comment on above: Result Comment: Canc elled via OM: Order cancelled - Patient discharged Performed By: #### L 100.0100, L500.2500 ####[facility] [address] [place], [address] CBC W/Diff, Automatedon 07-3 Absolute Neut Normal 2.0-7.7 [facility] Comment on above: Result Comment: Canc elled via OM: Order cancelled - Patient discharged Performed By: #### L 100.0100, L500.2500 ####[facility] [address] [place], [address] HCT Normal 40-54 [facility] Comment on above: Result Comment: Canc elled via OM: Order cancelled - Patient discharged Performed By: #### L 100.0100, L500.2500 ####[facility] [address] [place], [address] HGB Normal 13.0-16.5 [facility] Comment on above: Result Comment: Canc elled via OM: Order cancelled - Patient discharged Performed By: #### L 100.0100, L500.2500 ####[facility] [address] [place], [address] MCH Normal 27.0-32.0 [facility] Comment on above: Result Comment: Canc elled via OM: Order cancelled - Patient discharged Performed By: #### L 100.0100, L500.2500 ####[facility] [address] [place], [address] MCHC Normal 32-36 [facility] Comment on above: Result Comment: Canc elled via OM: Order cancelled - Patient discharged Performed By: #### L 100.0100, L500.2500 ####[facility] [address] [place], [address] MCV Normal 80-94 [facility] Comment on above: Result Comment: Canc elled via OM: Order cancelled - Patient discharged Performed By: #### L 100.0100, L500.2500 ####[facility] [address] [place], [address] NEUT% Normal 47-70 [facility] Comment on above: Result Comment: Canc elled via OM: Order cancelled - Patient discharged Performed By: #### L 100.0100, L500.2500 ####[facility] [address] [place], [address] PLT Normal 150-450 [facility] Comment on above: Result Comment: Canc elled via OM: Order cancelled - Patient discharged Performed By: #### L 100.0100, L500.2500 ####[facility] [address] [place], [address] RBC Normal 4.6-6.2 [facility] Comment on above: Result Comment: Canc elled via OM: Order cancelled - Patient discharged Performed By: #### L 100.0100, L500.2500 ####[facility] [address] [place], [address] RDW CV Normal 11.6-14.6 [facility] Comment on above: Result Comment: Canc elled via OM: Order cancelled - Patient discharged Performed By: #### L 100.0100, L500.2500 ####[facility] [address] [place], [address] RDW SD Normal 35.1-43.9 [facility] Comment on above: Result Comment: Canc elled via OM: Order cancelled - Patient discharged Performed By: #### L 100.0100, L500.2500 ####[facility] [address] [place], [address] WBC Normal 4.4-11.0 [facility] Comment on above: Result Comment: Canc elled via OM: Order cancelled - Patient discharged Performed By: #### L 100.0100, L500.2500 ####[facility] [address] [place], [address] Basic Metabolic Profile (BMP )on 06-12-2024 BUN Normal 7-18 [facility] Comment on above: Result Comment: Canc elled via OM: Order cancelled - Patient discharged Performed By: #### L 100.0100, L500.2500 ####[facility] [address] [place], [address] BUN/CRE Normal 10-20 [facility] Comment on above: Result Comment: Canc elled via OM: Order cancelled - Patient discharged Performed By: #### L 100.0100, L500.2500 ####[facility] [address] [place], [address] CA,Total Normal 8.5-10.1 [facility] Comment on above: Result Comment: Canc elled via OM: Order cancelled - Patient discharged Performed By: #### L 100.0100, L500.2500 ####[facility] [address] [place], [address] CL Normal 98-107 [facility] Comment on above: Result Comment: Canc elled via OM: Order cancelled - Patient discharged Performed By: #### L 100.0100, L500.2500 ####[facility] [address] [place], [address] CO2 Normal 21.0-32.0 [facility] Comment on above: Result Comment: Canc elled via OM: Order cancelled - Patient discharged Performed By: #### L 100.0100, L500.2500 ####[facility] [address] [place], [address] CREAT,SERUM Normal 0.70-1.30 [facility] Comment on above: Result Comment: Canc elled via OM: Order cancelled - Patient discharged Performed By: #### L 100.0100, L500.2500 ####[facility] [address] [place], [address] EST GFR Normal >60 [facility] Comment on above: Result Comment: Canc elled via OM: Order cancelled - Patient discharged Performed By: #### L 100.0100, L500.2500 ####[facility] [address] [place], [address] EST GFR - AA Normal >60 [facility] Comment on above: Result Comment: Canc elled via OM: Order cancelled - Patient discharged Performed By: #### L 100.0100, L500.2500 ####[facility] [address] [place], [address] GAP Normal 5-15 [facility] Comment on above: Result Comment: Canc elled via OM: Order cancelled - Patient discharged Performed By: #### L 100.0100, L500.2500 ####[facility] [address] [place], [address] GLU Normal 74-106 [facility] Comment on above: Result Comment: Canc elled via OM: Order cancelled - Patient discharged Performed By: #### L 100.0100, L500.2500 ####[facility] [address] [place], [address] Potassium Normal 3.5-5.1 [facility] Comment on above: Result Comment: Canc elled via OM: Order cancelled - Patient discharged Performed By: #### L 100.0100, L500.2500 ####[facility] [address] [place], [address] Basic Metabolic Profile (BMP) Normal 136-145 [facility] Comment on above: Result Comment: Canc elled via OM: Order cancelled - Patient discharged Performed By: #### L 100.0100, L500.2500 ####[facility] [address] [place], [address] CBC W/Diff, Automatedon 07-3 0-2023 Absolute Neut Normal 2.0-7.7 [facility] Comment on above: Result Comment: Canc elled via OM: Order cancelled - Patient discharged Performed By: #### L 100.0100, L500.2500 ####[facility] [address] [place], [address] HCT Normal 40-54 [facility] Comment on above: Result Comment: Canc elled via OM: Order cancelled - Patient discharged Performed By: #### L 100.0100, L500.2500 ####[facility] [address] [place], [address] HGB Normal 13.0-16.5 [facility] Comment on above: Result Comment: Canc elled via OM: Order cancelled - Patient discharged Performed By: #### L 100.0100, L500.2500 ####[facility] [address] [place], [address] MCH Normal 27.0-32.0 [facility] Comment on above: Result Comment: Canc elled via OM: Order cancelled - Patient discharged Performed By: #### L 100.0100, L500.2500 ####[facility] [address] [place], [address] MCHC Normal 32-36 [facility] Comment on above: Result Comment: Canc elled via OM: Order cancelled - Patient discharged Performed By: #### L 100.0100, L500.2500 ####[facility] [address] [place], [address] MCV Normal 80-94 [facility] Comment on above: Result Comment: Canc elled via OM: Order cancelled - Patient discharged Performed By: #### L 100.0100, L500.2500 ####[facility] [address] [place], [address] NEUT% Normal 47-70 [facility] Comment on above: Result Comment: Canc elled via OM: Order cancelled - Patient discharged Performed By: #### L 100.0100, L500.2500 ####[facility] [address] [place], [address] PLT Normal 150-450 [facility] Comment on above: Result Comment: Canc elled via OM: Order cancelled - Patient discharged Performed By: #### L 100.0100, L500.2500 ####[facility] [address] [place], [address] RBC Normal 4.6-6.2 [facility] Comment on above: Result Comment: Canc elled via OM: Order cancelled - Patient discharged Performed By: #### L 100.0100, L500.2500 ####[facility] [address] [place], [address] RDW CV Normal 11.6-14.6 [facility] Comment on above: Result Comment: Canc elled via OM: Order cancelled - Patient discharged Performed By: #### L 100.0100, L500.2500 ####[facility] [address] [place], [address] RDW SD Normal 35.1-43.9 [facility] Comment on above: Result Comment: Canc elled via OM: Order cancelled - Patient discharged Performed By: #### L 100.0100, L500.2500 ####[facility] [address] [place], [address] WBC Normal 4.4-11.0 [facility] Comment on above: Result Comment: Canc elled via OM: Order cancelled - Patient discharged Performed By: #### L 100.0100, L500.2500 ####[facility] [address] [place], [address] Basic Metabolic Profile (BMP )on 06-11-2024 BUN Normal 7-18 [facility] Comment on above: Result Comment: @PAT IENT TRANSFERRED PER TAO,RN Performed By: #### M 100.2200, L4 #### [facility] [address] [place], [address] BUN/CRE Normal 10-20 [facility] Comment on above: Result Comment: @PAT IENT TRANSFERRED PER TAO,RN Performed By: #### M 100.2200, L4 #### [facility] [address] [place], [address] CA,Total Normal 8.5-10.1 [facility] Comment on above: Result Comment: @PAT IENT TRANSFERRED PER TAO,RN Performed By: #### M 100.2200, L4 #### [facility] [address] [place], [address] CL Normal 98-107 [facility] Comment on above: Result Comment: @PAT IENT TRANSFERRED PER TAO,RN Performed By: #### M 100.2200, L4 #### [facility] [address] [place], [address] CO2 Normal 21.0-32.0 [facility] Comment on above: Result Comment: @PAT IENT TRANSFERRED PER TAO,RN Performed By: #### M 100.2200, L4 #### [facility] [address] [place], [address] CREAT,SERUM Normal 0.70-1.30 [facility] Comment on above: Result Comment: @PAT IENT TRANSFERRED PER TAO,RN Performed By: #### M 100.2199, L4 #### [facility] [address] [place], [address] EST GFR Normal >60 [facility] Comment on above: Result Comment: @PAT IENT TRANSFERRED PER TAO,RN Performed By: #### M 100.2199, L4 #### [facility] [address] [place], [address] EST GFR - AA Normal >60 [facility] Comment on above: Result Comment: @PAT IENT TRANSFERRED PER TAO,RN Performed By: #### M .2199, L4 #### [facility] [address] [place], [address] GAP Normal 5-15 [facility] Comment on above: Result Comment: @PAT IENT TRANSFERRED PER TAO,RN Performed By: #### M .2199, L4 #### [facility] [address] [place], [address] GLU Normal 74-106 [facility] Comment on above: Result Comment: @PAT IENT TRANSFERRED PER TAO,RN Performed By: #### M 100.2199, L4 #### [facility] [address] [place], [address] Potassium Normal 3.5-5.1 [facility] Comment on above: Result Comment: @PAT IENT TRANSFERRED PER TAO,RN Performed By: #### M 100.2199, L4 #### [facility] [address] [place], [address] Basic Metabolic Profile (BMP) Normal 136-145 [facility] Comment on above: Result Comment: @PAT IENT TRANSFERRED PER TAO,RN Performed By: #### M 100.2199, #### [facility] [address] [place], [address] CBC W/Diff, Automatedon 07-2 Absolute Neut Normal 2.0-7.7 [facility] Comment on above: Result Comment: @PAT IENT TRANSFERRED PER TAO,RN Performed By: #### M 100.2199, #### [facility] [address] [place], [address] HCT Normal 40-54 [facility] Comment on above: Result Comment: @PAT IENT TRANSFERRED PER TAO,RN Performed By: #### M 100.2199, #### [facility] [address] [place], [address] HGB Normal 13.0-16.5 [facility] Comment on above: Result Comment: @PAT IENT TRANSFERRED PER TAO,RN Performed By: #### M 100.2199, L4 #### [facility] [address] [place], [address] MCH Normal 27.0-32.0 [facility] Comment on above: Result Comment: @PAT IENT TRANSFERRED PER TAO,RN Performed By: #### M 100.2199, #### [facility] [address] [place], [address] MCHC Normal 32-36 [facility] Comment on above: Result Comment: @PAT IENT TRANSFERRED PER TAO,RN Performed By: #### M 100.2199, L4 #### [facility] [address] [place], [address] MCV Normal 80-94 [facility] Comment on above: Result Comment: @PAT IENT TRANSFERRED PER TAO,RN Performed By: #### M 100.2199, #### [facility] [address] [place], [address] NEUT% Normal 47-70 [facility] Comment on above: Result Comment: @PAT IENT TRANSFERRED PER TAO,RN Performed By: #### M 100.2199, #### [facility] [address] [place], [address] PLT Normal 150-450 [facility] Comment on above: Result Comment: @PAT IENT TRANSFERRED PER TAO,RN Performed By: #### M 100.2199, #### [facility] [address] [place], [address] RBC Normal 4.6-6.2 [facility] Comment on above: Result Comment: @PAT IENT TRANSFERRED PER TAO,RN Performed By: #### M 100.2199, #### [facility] [address] [place], [address] RDW CV Normal 11.6-14.6 [facility] Comment on above: Result Comment: @PAT IENT TRANSFERRED PER TAO,RN Performed By: #### M , #### [facility] [address] [place], [address] RDW SD Normal 35.1-43.9 [facility] Comment on above: Result Comment: @PAT IENT TRANSFERRED PER TAO,RN Performed By: #### M 100.2199, #### [facility] [address] [place], [address] WBC Normal 4.4-11.0 [facility] Comment on above: Result Comment: @PAT IENT TRANSFERRED PER TAO,RN Performed By: #### M 100.2199, #### [facility] [address] [place], [address] Abdomen Single View (Portabl e)on 06-10-2024 Abdomen Single View (Portable) [facility] [address] [place], [place] [address] Abdomen Single View (Portable) MR#: [id number] Acct: [id number] Name: JIAN ALTAMIRANO Rep #: [id number] : 1965 M 58 From: Varun Thompson PCP: Dr. Clifford Estes MD Status: ADM IN Study: Abdomen Single View (Portable) Date of Exam: 0 06/10/24 Exam# [id number] Ordering Dr: Dorene Ruiz MD [id number] STUDY: XR Abdomen 1 View 06/10/2024 8:14 AM REASON FOR EXAM: Male, 58 years old. ileus TECHNIQUE: XR Abdomen 1 View COMPARISON: Study done yesterday FINDINGS: Normal visualized lung bases. There is a paralytic ileus of the small intestine with mild gaseous distention. Oral contrast fills the colon. SOFT SHOE DANCER shunt noted on the right side. NG tube tip visualized in the region of the stomach. There is no demonstrated free abdominal air. The visualized liver, spleen and kidneys are grossly normal in size and morphology. Normal soft tissue structures. There are diffuse degenerative changes of the visualized lumbar spine. RAD/Abdomen Single View (Portable) IMPRESSION: Since the prior study, there is been no transit of the oral contrast. This suggests slow colonic motility. The small bowel loops are unchanged in appearance and suggest an ileus. Obstruction is not excluded. Electronically Signed: Varun Lutz MD at 14:50 EDT , CC: Dr. Dorene Ruiz MD; Dr. Clifford Estes MD Tank House Operator: Signed Normal [facility] Basic Metabolic Profile (BMP )on 06-10-2024 BUN/CRE 2.1 RATIO Low 10-20 [facility] Comment on above: Performed By: #### M 100.2199, L4 #### [facility] [address] [place], [address] CA,Total 8.0 mg/dL Low 8.5-10.1 [facility] Comment on above: Performed By: #### M .2199, #### [facility] [address] [place], [address] Chloride [Moles/Vol] 103 mmol/L Normal 98-107 [facility] Comment on above: Performed By: #### M .2199, #### [facility] [address] [place], [address] CO2 [Moles/Vol] 28.0 mmol/L Normal 21.0-32.0 [facility] Comment on above: Performed By: #### M .2199, L4 #### [facility] [address] [place], [address] Creatinine [Mass/Vol] 0.47 mg/dL Low 0.70-1.30 [facility] Comment on above: Result Comment: The validity of the calculated GFR GFRAA in patients over 70 years has not been determined. Clinical correlation is essential. Performed By: #### M 100.2199, L4 #### [facility] [address] [place], [address] ECRCL 139.75 ml/min Normal [facility] Comment on above: Performed By: #### M 100.220, L4 #### [facility] [address] [place], [address] EST GFR - AA 239 mL/min Normal >60 [facility] Comment on above: Result Comment: Afri can [place] GFR Calc Performed By: #### M .2199, L4 #### [facility] [address] [place], [address] GAP 4 Low 5-15 [facility] Comment on above: Performed By: #### M .2199, L4 #### [facility] [address] [place], [address] GFR/1.73 sq M.predicted among non-blacks MDRD (S/P/Bld) [Vol rate/Area] 197 mL/min/{1.73_m2} Normal >60 [facility] Comment on above: Result Comment: Non- GFR Calc Performed By: #### M , #### [facility] [address] [place], [address] Glucose [Mass/Vol] 142 mg/dL High 74-106 [facility] Comment on above: Result Comment: Fast ing Glucose result greater than or equal to 126 mg/dL suggests DIABETES MELLITUS per A.D.A. criteria. Performed By: #### M , L4 #### [facility] [address] [place], [address] Potassium [Moles/Vol] 2.9 mmol/L Low 3.5-5.1 [facility] Comment on above: Performed By: #### M .2199, L4 #### [facility] [address] [place], [address] Sodium [Moles/Vol] 135 mmol/L Low 136-145 [facility] Comment on above: Performed By: #### M 100.2199, L4 #### [facility] [address] [place], [address] Urea nitrogen [Mass/Vol] 1 mg/dL Low 7-18 [facility] Comment on above: Performed By: #### M 100.2199, L4 #### [facility] [address] [place], [address] Bedside Glucoseon 06-10-2024 FINGERSTICK GLU 119 mg/dL High 74-106 [facility] Comment on above: Result Comment: ANAMARIA GEMENT OF PATIENT CARE PER NURSING PROTOCOL Performed By: #### L 501.080 ####[facility] [address] [place], [address] FINGERSTICK GLU 115 mg/dL High 74-106 [facility] Comment on above: Result Comment: ANAMARIA GEMENT OF PATIENT CARE PER NURSING PROTOCOL Performed By: #### M 100.2199, #### [facility] [address] [place], [address] CBC W/Diff, Automatedon 05-15 Absolute Lymph 1.37 X10 3/uL Normal 0.83-4.51 [facility] Comment on above: Performed By: #### M 100.2199, L4 #### [facility] [address] [place], [address] Absolute Neut 2.4 X10 3/uL Normal 2.0-7.7 [facility] Comment on above: Performed By: #### M 100.2199, L4 #### [facility] [address] [place], [address] Basophils/100 WBC (Bld) 0.4 % Normal 0-1 [facility] Comment on above: Performed By: #### M 100.2199, L4 #### [facility] [address] [place], [address] Eosinophils/100 WBC (Bld) 2.5 % Normal 0-5 [facility] Comment on above: Performed By: #### M 100.2199, L4 #### [facility] [address] [place], [address] Erythrocyte distribution width (RBC) [Ratio] 12.5 % Normal 11.6-14.6 [facility] Comment on above: Performed By: #### M .2199, #### [facility] [address] [place], [address] Hematocrit (Bld) [Volume fraction] 33.3 % Low 40-54 [facility] Comment on above: Performed By: #### M .2199, #### [facility] [address] [place], [address] Hemoglobin (Bld) [Mass/Vol] 11.4 g/dL Low 13.0-16.5 [facility] Comment on above: Performed By: #### M , #### [facility] [address] [place], [address] IG% 0.400 Normal 0.0-0.9 [facility] Comment on above: Result Comment: IG% - Immature Granulocytes (promyelocytes, myelocytes and metamyelocytes) > 1% indicates that a LEFT SHIFT is Present. Performed By: #### M .2199, #### [facility] [address] [place], [address] Lymphocytes/100 WBC (Bld) 29.0 % Normal 19-41 [facility] Comment on above: Performed By: #### M 100.2199, #### [facility] [address] [place], [address] MCH (RBC) [Entitic mass] 29.2 pg Normal 27.0-32.0 [facility] Comment on above: Performed By: #### M 100.2199, #### [facility] [address] [place], [address] MCHC (RBC) [Mass/Vol] 34.2 g/dL Normal 32-36 [facility] Comment on above: Performed By: #### M , #### [facility] [address] [place], [address] MCV (RBC) [Entitic vol] 85.2 fL Normal 80-94 [facility] Comment on above: Performed By: #### M , #### [facility] [address] [place], [address] Monocytes/100 WBC (Bld) 17.3 % High 0-10 [facility] Comment on above: Performed By: #### M , #### [facility] [address] [place], [address] Neutrophils/100 WBC (Bld) 50.4 % Normal 47-70 [facility] Comment on above: Performed By: #### M , #### [facility] [address] [place], [address] Nucleated RBC (Bld) [#/Vol] 0 10*3/uL Normal 0-5 [facility] Comment on above: Performed By: #### M , #### [facility] [address] [place], [address] Platelet mean volume (Bld) [Entitic vol] 9.8 fL Normal 6.2-12.0 [facility] Comment on above: Performed By: #### M , #### [facility] [address] [place], [address] Platelets (Bld) [#/Vol] 345 10*3/uL Normal 150-450 [facility] Comment on above: Performed By: #### M , #### [facility] [address] [place], [address] RBC (Bld) [#/Vol] 3.91 10*6/uL Low 4.6-6.2 [facility] Comment on above: Performed By: #### M 100.2200, L400.2010 #### [facility] [address] [place], [address] RDW SD 38.5 fl Normal 35.1-43.9 [facility] Comment on above: Performed By: #### M 100.2200, L400.2010 #### [facility] [address] [place], [address] WBC (Bld) [#/Vol] 4.7 10*3/uL Normal 4.4-11.0 [facility] Comment on above: Performed By: #### M 100.2200, L4.2010 #### [facility] [address] [place], [address] Abdomen Single View (Portabl e)on 06-09-2024 Abdomen Single View (Portable) [facility] [address] [place] [address] Abdomen Single View (Portable) MR#: [id number] Acct: [id number] Name: VALENTINJIAN SALGUERO Reuben Rep #: [id number] : 1965 M 58 From: Marce cruz MD PCP: Dr. Clifford Estes MD Status: ADM IN Study: Abdomen Single View (Portable) Date of Exam: 0 06/09/24 Exam# [id number] Ordering Dr: Dorene Ruiz MD [id number] HISTORY: SBO. TECHNIQUE: XR Abdomen 1 View. COMPARISON: 06/07/2024. FINDINGS: LINES/TUBES: Nasogastric tube tip in the left upper quadrant at the level of the distal stomach. SOFT SHOE DANCER shunt catheter extending from the right upper quadrant to pelvis with tip in the left lower quadrant. BOWEL GAS PATTERN: Persistent gaseous distention and dilatation of small and large bowel in the midabdomen. Residual contrast throughout the colon down to the level of the rectum. FREE AIR: Not assessed on supine view. RAD/Abdomen Single View (Portable) IMPRESSION: Persistent ileus or distal obstruction. Electronically Signed: Marce Macedo MD at 10:59 EDT , CC: Dr. Dorene Ruiz MD; Dr. Clifford Estes MD Tank House Operator: Signed Normal [facility] Basic Metabolic Profile (BMP )on 06-09-2024 BUN/CRE 3.6 RATIO Low 10-20 [facility] Comment on above: Performed By: #### L 500.2500, L100.0100 ####[facility] [address] [place], [address] CA,Total 8.1 mg/dL Low 8.5-10.1 [facility] Comment on above: Performed By: #### L 500.2500, L100.0100 ####[facility] [address] [place], [address] Chloride [Moles/Vol] 101 mmol/L Normal 98-107 [facility] Comment on above: Performed By: #### L 500.2500, L100.0100 ####[facility] [address] [place], [address] CO2 [Moles/Vol] 24.0 mmol/L Normal 21.0-32.0 [facility] Comment on above: Performed By: #### L 500.2500, L100.0100 ####[facility] [address] [place], [address] Creatinine [Mass/Vol] 0.55 mg/dL Low 0.70-1.30 [facility] Comment on above: Result Comment: The validity of the calculated GFR GFRAA in patients over 70 years has not been determined. Clinical correlation is essential. Performed By: #### L 500.2500, L100.0100 ####[facility] [address] [place], [address] ECRCL 116.88 ml/min Normal [facility] Comment on above: Performed By: #### L 500.2500, L100.0100 ####[facility] [address] [place], [address] EST GFR - AA 198 mL/min Normal >60 [facility] Comment on above: Result Comment: Afri can [place] GFR Calc Performed By: #### L 500.2500, L100.0100 ####[facility] [address] [place], [address] GAP 7 Normal 5-15 [facility] Comment on above: Performed By: #### L 500.2500, L100.0100 ####[facility] [address] [place], [address] GFR/1.73 sq M.predicted among non-blacks MDRD (S/P/Bld) [Vol rate/Area] 164 mL/min/{1.73_m2} Normal >60 [facility] Comment on above: Result Comment: Non- GFR Calc Performed By: #### L 500.2500, L100.0100 ####[facility] [address] [place], [address] Glucose [Mass/Vol] 151 mg/dL High 74-106 [facility] Comment on above: Result Comment: Fast ing Glucose result greater than or equal to 126 mg/dL suggests DIABETES MELLITUS per A.D.A. criteria. Performed By: #### L 500.2500, L100.0100 ####[facility] [address] [place], [address] Potassium [Moles/Vol] 3.1 mmol/L Low 3.5-5.1 [facility] Comment on above: Performed By: #### L 500.2500, L100.0100 ####[facility] [address] [place], [address] Sodium [Moles/Vol] 132 mmol/L Low 136-145 [facility] Comment on above: Performed By: #### L 500.2500, L100.0100 ####[facility] [address] [place], [address] Urea nitrogen [Mass/Vol] 2 mg/dL Low 7-18 [facility] Comment on above: Performed By: #### L 500.2500, L100.0100 ####[facility] [address] [place], [address] Bedside Glucoseon 06-09-2024 FINGERSTICK GLU 133 mg/dL High 74-106 [facility] Comment on above: Result Comment: ANAMARIA GEMENT OF PATIENT CARE PER NURSING PROTOCOL Performed By: #### M , L4.2010 #### [facility] [address] [place], [address] FINGERSTICK GLU 120 mg/dL High 74-106 [facility] Comment on above: Result Comment: ANAMARIA GEMENT OF PATIENT CARE PER NURSING PROTOCOL Performed By: #### M , L4.2010 #### [facility] [address] [place], [address] FINGERSTICK GLU 141 mg/dL High 74-106 [facility] Comment on above: Result Comment: ANAMARIA GEMENT OF PATIENT CARE PER NURSING PROTOCOL Performed By: #### M 100.2199, L4.2010 #### [facility] [address] [place], [address] FINGERSTICK GLU 131 mg/dL High 74-106 [facility] Comment on above: Result Comment: ANAMARIA GEMENT OF PATIENT CARE PER NURSING PROTOCOL Performed By: #### M 100.220, L400.2010 #### [facility] [address] [place], [address] CBC W/Diff, Automatedon 05-15 Absolute Lymph 1.46 X10 3/uL Normal 0.83-4.51 [facility] Comment on above: Performed By: #### L 500.2500, L100.0100 ####[facility] [address] [place], [address] Absolute Neut 3.1 X10 3/uL Normal 2.0-7.7 [facility] Comment on above: Performed By: #### L 500.2500, L100.0100 ####[facility] [address] [place], [address] Basophils/100 WBC (Bld) 0.3 % Normal 0-1 [facility] Comment on above: Performed By: #### L 500.2500, L100.0100 ####[facility] [address] [place], [address] Eosinophils/100 WBC (Bld) 2.2 % Normal 0-5 [facility] Comment on above: Performed By: #### L 500.2500, L100.0100 ####[facility] [address] [place], [address] Erythrocyte distribution width (RBC) [Ratio] 12.5 % Normal 11.6-14.6 [facility] Comment on above: Performed By: #### L 500.2500, L100.0100 ####[facility] [address] [place], [address] Hematocrit (Bld) [Volume fraction] 33.3 % Low 40-54 [facility] Comment on above: Performed By: #### L 500.2500, L100.0100 ####[facility] [address] [place], [address] Hemoglobin (Bld) [Mass/Vol] 11.2 g/dL Low 13.0-16.5 [facility] Comment on above: Performed By: #### L 500.2500, L100.0100 ####[facility] [address] [place], [address] IG% 0.300 Normal 0.0-0.9 [facility] Comment on above: Result Comment: IG% - Immature Granulocytes (promyelocytes, myelocytes and metamyelocytes) > 1% indicates that a LEFT SHIFT is Present. Performed By: #### L 500.2500, L100.0100 ####[facility] [address] [place], [address] Lymphocytes/100 WBC (Bld) 25.0 % Normal 19-41 [facility] Comment on above: Performed By: #### L 500.2500, L100.0100 ####[facility] [address] [place], [address] MCH (RBC) [Entitic mass] 28.7 pg Normal 27.0-32.0 [facility] Comment on above: Performed By: #### L 500.2500, L100.0100 ####[facility] [address] [place], [address] MCHC (RBC) [Mass/Vol] 33.6 g/dL Normal 32-36 [facility] Comment on above: Performed By: #### L 500.2500, L100.0100 ####[facility] [address] [place], [address] MCV (RBC) [Entitic vol] 85.4 fL Normal 80-94 [facility] Comment on above: Performed By: #### L 500.2500, L100.0100 ####[facility] [address] [place], [address] Monocytes/100 WBC (Bld) 18.9 % High 0-10 [facility] Comment on above: Performed By: #### L 500.2500, L100.0100 ####[facility] [address] [place], [address] Neutrophils/100 WBC (Bld) 53.3 % Normal 47-70 [facility] Comment on above: Performed By: #### L 500.2500, L100.0100 ####[facility] [address] [place], [address] Nucleated RBC (Bld) [#/Vol] 0 10*3/uL Normal 0-5 [facility] Comment on above: Performed By: #### L 500.2500, L100.0100 ####[facility] [address] [place], [address] Platelet mean volume (Bld) [Entitic vol] 9.8 fL Normal 6.2-12.0 [facility] Comment on above: Performed By: #### L 500.2500, L100.0100 ####[facility] [address] [place], [address] Platelets (Bld) [#/Vol] 330 10*3/uL Normal 150-450 [facility] Comment on above: Performed By: #### L 500.2500, L100.0100 ####[facility] [address] [place], [address] RBC (Bld) [#/Vol] 3.90 10*6/uL Low 4.6-6.2 [facility] Comment on above: Performed By: #### L 500.2500, L100.0100 ####[facility] [address] [place], [address] RDW SD 39.1 fl Normal 35.1-43.9 [facility] Comment on above: Performed By: #### L 500.2500, L100.0100 ####[facility] [address] [place], [address] WBC (Bld) [#/Vol] 5.8 10*3/uL Normal 4.4-11.0 [facility] Comment on above: Performed By: #### L 500.2500, L100.0100 ####[facility] [address] [place], [address] Basic Metabolic Profile (BMP )on 06-08-2024 BUN/CRE 10.8 RATIO Normal 10-20 [facility] Comment on above: Performed By: #### M 100.2200, L4.2010 #### [facility] [address] [place], [address] CA,Total 8.2 mg/dL Low 8.5-10.1 [facility] Comment on above: Performed By: #### M 100.2200, L4.2010 #### [facility] [address] [place], [address] Chloride [Moles/Vol] 104 mmol/L Normal 98-107 [facility] Comment on above: Performed By: #### M 100.2200, L4.2010 #### [facility] [address] [place], [address] CO2 [Moles/Vol] 19.0 mmol/L Low 21.0-32.0 [facility] Comment on above: Performed By: #### M 100.2200, L4.2010 #### [facility] [address] [place], [address] Creatinine [Mass/Vol] 0.55 mg/dL Low 0.70-1.30 [facility] Comment on above: Result Comment: The validity of the calculated GFR GFRAA in patients over 70 years has not been determined. Clinical correlation is essential. Performed By: #### M 100.2200, L400.2010 #### [facility] [address] [place], [address] ECRCL 116.67 ml/min Normal [facility] Comment on above: Performed By: #### M , #### [facility] [address] [place], [address] EST GFR - AA 196 mL/min Normal >60 [facility] Comment on above: Result Comment: Afri can [place] GFR Calc Performed By: #### M , #### [facility] [address] [place], [address] GAP 11 Normal 5-15 [facility] Comment on above: Performed By: #### M , #### [facility] [address] [place], [address] GFR/1.73 sq M.predicted among non-blacks MDRD (S/P/Bld) [Vol rate/Area] 162 mL/min/{1.73_m2} Normal >60 [facility] Comment on above: Result Comment: Non- GFR Calc Performed By: #### M , #### [facility] [address] [place], [address] Glucose [Mass/Vol] 76 mg/dL Normal 74-106 [facility] Comment on above: Performed By: #### M , #### [facility] [address] [place], [address] Potassium [Moles/Vol] 3.3 mmol/L Low 3.5-5.1 [facility] Comment on above: Performed By: #### M , L4 #### [facility] [address] [place], [address] Sodium [Moles/Vol] 134 mmol/L Low 136-145 [facility] Comment on above: Performed By: #### M , #### [facility] [address] [place], [address] Urea nitrogen [Mass/Vol] 6 mg/dL Low 7-18 [facility] Comment on above: Performed By: #### M 100.220, #### [facility] [address] [place], [address] Bedside Glucoseon 06-08-2024 FINGERSTICK GLU 67 mg/dL Low 74-106 [facility] Comment on above: Result Comment: ANAMARIA CRUZ OF PATIENT CARE PER NURSING PROTOCOL Performed By: #### M 100.2199, #### [facility] [address] [place], [address] CBC W/Diff, Automatedon 07- Absolute Lymph 1.15 X10 3/uL Normal 0.83-4.51 [facility] Comment on above: Performed By: #### M 100.2199, #### [facility] [address] [place], [address] Absolute Neut 5.0 X10 3/uL Normal 2.0-7.7 [facility] Comment on above: Performed By: #### M 100.2199, L4 #### [facility] [address] [place], [address] Basophils/100 WBC (Bld) 0.4 % Normal 0-1 [facility] Comment on above: Performed By: #### M 100.220, L4 #### [facility] [address] [place], [address] Eosinophils/100 WBC (Bld) 1.2 % Normal 0-5 [facility] Comment on above: Performed By: #### M 100.220, L4 #### [facility] [address] [place], [address] Erythrocyte distribution width (RBC) [Ratio] 12.9 % Normal 11.6-14.6 [facility] Comment on above: Performed By: #### M , #### [facility] [address] [place], [address] Hematocrit (Bld) [Volume fraction] 34.2 % Low 40-54 [facility] Comment on above: Performed By: #### M , #### [facility] [address] [place], [address] Hemoglobin (Bld) [Mass/Vol] 11.3 g/dL Low 13.0-16.5 [facility] Comment on above: Performed By: #### M , #### [facility] [address] [place], [address] IG% 0.300 Normal 0.0-0.9 [facility] Comment on above: Result Comment: IG% - Immature Granulocytes (promyelocytes, myelocytes and metamyelocytes) > 1% indicates that a LEFT SHIFT is Present. Performed By: #### M , #### [facility] [address] [place], [address] Lymphocytes/100 WBC (Bld) 15.3 % Low 19-41 [facility] Comment on above: Performed By: #### M , #### [facility] [address] [place], [address] MCH (RBC) [Entitic mass] 29.2 pg Normal 27.0-32.0 [facility] Comment on above: Performed By: #### M , #### [facility] [address] [place], [address] MCHC (RBC) [Mass/Vol] 33.0 g/dL Normal 32-36 [facility] Comment on above: Performed By: #### M , L4.2010 #### [facility] [address] [place], [address] MCV (RBC) [Entitic vol] 88.4 fL Normal 80-94 [facility] Comment on above: Performed By: #### M 100, L4.2010 #### [facility] [address] [place], [address] Monocytes/100 WBC (Bld) 16.1 % High 0-10 [facility] Comment on above: Performed By: #### M , L4.2010 #### [facility] [address] [place], [address] Neutrophils/100 WBC (Bld) 66.7 % Normal 47-70 [facility] Comment on above: Performed By: #### M , L4.2010 #### [facility] [address] [place], [address] Nucleated RBC (Bld) [#/Vol] 0 10*3/uL Normal 0-5 [facility] Comment on above: Performed By: #### M , L4 #### [facility] [address] [place], [address] Platelet mean volume (Bld) [Entitic vol] 9.6 fL Normal 6.2-12.0 [facility] Comment on above: Performed By: #### M , L4 #### [facility] [address] [place], [address] Platelets (Bld) [#/Vol] 309 10*3/uL Normal 150-450 [facility] Comment on above: Performed By: #### M 100, L400.2010 #### [facility] [address] [place], [address] RBC (Bld) [#/Vol] 3.87 10*6/uL Low 4.6-6.2 [facility] Comment on above: Performed By: #### M 100.2200, L400.2010 #### [facility] [address] [place], [address] RDW SD 41.8 fl Normal 35.1-43.9 [facility] Comment on above: Performed By: #### M 100.2200, L400.2010 #### [facility] [address] [place], [address] WBC (Bld) [#/Vol] 7.5 10*3/uL Normal 4.4-11.0 [facility] Comment on above: Performed By: #### M 100.2200, L400.2010 #### [facility] [address] [place], [address] Urine Cultureon 06-08-2024 [facility] Escherichia coli [place] Count >100,000 Escherichia coli: REACTION Ampicillin Islt CONOR >=32 R Ampicillin+Sulbac Islt CONOR 16 I ceFAZolin Islt CONOR <=4 S Cefepime Islt CONOR <=0.12 S cefTRIAXone Islt CONOR <=0.25 S Ciprofloxacin Islt CONOR >=4 R Ertapenem Islt CONOR <=0.12 S B-Lactamase Extended Susc Islt NEG Gentamicin Islt CONOR >=16 R Imipenem Islt CONOR <=0.25 S levoFLOXacin Islt CONOR >=8 R Nitrofurantoin Islt CONOR <=16 S Pip+Tazo Islt CONOR <=4 S Tobramycin Islt CONOR 8 I TMP SMX Islt CNOOR >=320 R Normal [facility] Comment on above: Performed By: #### M 100.2200, L400.2010 #### [facility] [address] [place], [address] Abdomen Single View (Portabl e)on 06-07-2024 Abdomen Single View (Portable) [facility] [address] [place] [address] Abdomen Single View (Portable) MR#: [id number] Acct: [id number] Name: JIAN ALTAMIRANO Rep #: [id number] : 1965 M 58 From: Damian Moon MD PCP: Dr. Clifford Estes MD Status: ADM IN Study: Abdomen Single View (Portable) Date of Exam: 0 06/07/24 Exam# [id number] Ordering Dr: Nikki Celestin MD [id number] INDICATION: bowel obstruction EXAMINATION/TECHNIQUE: X-RAY - Supine AP view. COMPARISON: 06/06/2024. FINDINGS: Ventriculoperitoneal shunt terminates in the left hemipelvis. Enteric tube side-port and distal tip are distal to the GE junction within the proximal stomach. BOWEL GAS PATTERN: Again seen is dilated small bowel. CALCIFICATIONS: No abnormal calcifications identified. LOWER CHEST: Visualized lung bases are unremarkable. BONES AND SOFT TISSUES: No acute abnormality. RAD/Abdomen Single View (Portable) IMPRESSION: Dilated small bowel consistent with small bowel obstruction, slightly improved as compared to the prior exam. Electronically Signed: Damian Moon DO at 6:28 EDT , CC: Dr. Nikki Celestin MD; Dr. Clifford Estes MD Tank House Operator: Signed Normal [facility] Bedside Glucoseon 06-07-2024 FINGERSTICK GLU 72 mg/dL Low 74-106 [facility] Comment on above: Result Comment: ANAMARIA NANCY OF PATIENT CARE PER NURSING PROTOCOL Performed By: #### L 501.2450, L100.0100, L500.4050, L503.6005 #### [facility] [address] [place], [address] CBC W/Diff, Automatedon 07-2 -2023 Absolute Lymph 1.23 X10 3/uL Normal 0.83-4.51 [facility] Comment on above: Performed By: #### L 100.0100, L501.9985, L500.4050 #### [facility] [address] [place], [address] Absolute Neut 6.1 X10 3/uL Normal 2.0-7.7 [facility] Comment on above: Performed By: #### L 100.0100, L501.9985, L500.4050 #### [facility] [address] [place], [address] Basophils/100 WBC (Bld) 0.3 % Normal 0-1 [facility] Comment on above: Performed By: #### L 100.0100, L501.9985, L500.4050 #### [facility] [address] [place], [address] Eosinophils/100 WBC (Bld) 0.8 % Normal 0-5 [facility] Comment on above: Performed By: #### L 100.0100, L501.9985, L500.4050 #### [facility] [address] [place], [address] Erythrocyte distribution width (RBC) [Ratio] 13.1 % Normal 11.6-14.6 [facility] Comment on above: Performed By: #### L 100.0100, L501.9985, L500.4050 #### [facility] [address] [place], [address] Hematocrit (Bld) [Volume fraction] 36.0 % Low 40-54 [facility] Comment on above: Performed By: #### L 100.0100, L501.9985, L500.4050 #### [facility] [address] [place], [address] Hemoglobin (Bld) [Mass/Vol] 11.8 g/dL Low 13.0-16.5 [facility] Comment on above: Performed By: #### L 100.0100, L501.9985, L500.4050 #### [facility] [address] [place], [address] IG% 0.300 Normal 0.0-0.9 [facility] Comment on above: Result Comment: IG% - Immature Granulocytes (promyelocytes, myelocytes and metamyelocytes) > 1% indicates that a LEFT SHIFT is Present. Performed By: #### L 100.0100, L501.9985, L500.4050 #### [facility] [address] [place], [address] Lymphocytes/100 WBC (Bld) 13.9 % Low 19-41 [facility] Comment on above: Performed By: #### L 100.0100, L501.9985, L500.4050 #### [facility] [address] [place], [address] MCH (RBC) [Entitic mass] 29.4 pg Normal 27.0-32.0 [facility] Comment on above: Performed By: #### L 100.0100, L501.9985, L500.4050 #### [facility] [address] [place], [address] MCHC (RBC) [Mass/Vol] 32.8 g/dL Normal 32-36 [facility] Comment on above: Performed By: #### L 100.0100, L501.9985, L500.4050 #### [facility] [address] [place], [address] MCV (RBC) [Entitic vol] 89.8 fL Normal 80-94 [facility] Comment on above: Performed By: #### L 100.0100, L501.9985, L500.4050 #### [facility] [address] [place], [address] Monocytes/100 WBC (Bld) 15.5 % High 0-10 [facility] Comment on above: Performed By: #### L 100.0100, L501.9985, L500.4050 #### [facility] [address] [place], [address] Neutrophils/100 WBC (Bld) 69.2 % Normal 47-70 [facility] Comment on above: Performed By: #### L 100.0100, L501.9985, L500.4050 #### [facility] [address] [place], [address] Nucleated RBC (Bld) [#/Vol] 0 10*3/uL Normal 0-5 [facility] Comment on above: Performed By: #### L 100.0100, L501.9985, L500.4050 #### [facility] [address] [place], [address] Platelet mean volume (Bld) [Entitic vol] 10.7 fL Normal 6.2-12.0 [facility] Comment on above: Performed By: #### L 100.0100, L501.9985, L500.4050 #### [facility] [address] [place], [address] Platelets (Bld) [#/Vol] 284 10*3/uL Normal 150-450 [facility] Comment on above: Performed By: #### L 100.0100, L501.9985, L500.4050 #### [facility] [address] [place], [address] RBC (Bld) [#/Vol] 4.01 10*6/uL Low 4.6-6.2 [facility] Comment on above: Performed By: #### L 100.0100, L501.9985, L500.4050 #### [facility] [address] [place], [address] RDW SD 43.8 fl Normal 35.1-43.9 [facility] Comment on above: Performed By: #### L 100.0100, L501.9985, L500.4050 #### [facility] [address] [place], [address] WBC (Bld) [#/Vol] 8.9 10*3/uL Normal 4.4-11.0 [facility] Comment on above: Performed By: #### L 100.0100, L501.9985, L500.4050 #### [facility] [address] [place], [address] Comprehensive Metabolic [facility] 06-07-2024 Albumin [Mass/Vol] 2.5 g/dL Low 3.2-5.0 [facility] Comment on above: Performed By: #### L 100.0100, L501.9985, L500.4050 ####[facility] [address] [place], [address] Albumin/Globulin [Mass ratio] 0.8 {ratio} Low 0.9-2.4 [facility] Comment on above: Performed By: #### L 100.0100, L501.9985, L500.4050 ####[facility] [address] [place], [address] ALK P 62 U/L Normal 45-117 [facility] Comment on above: Performed By: #### L 100.0100, L501.9985, L500.4050 ####[facility] [address] [place], [address] ALT [Catalytic activity/Vol] 13 U/L Low 16-61 [facility] Comment on above: Performed By: #### L 100.0100, L501.9985, L500.4050 ####[facility] [address] [place], [address] AST [Catalytic activity/Vol] 12 U/L Low 15-37 [facility] Comment on above: Performed By: #### L 100.0100, L501.9985, L500.4050 ####[facility] [address] [place], [address] Bilirubin [Mass/Vol] 0.70 mg/dL Normal 0.20-1.00 [facility] Comment on above: Result Comment: For patients on eltrombopag therapy, use of Dimension [place] TBIL is not recommended. Performed By: #### L 100.0100, L501.9985, L500.4050 ####[facility] [address] [place], [address] BUN/CRE 19.3 RATIO Normal 10-20 [facility] Comment on above: Performed By: #### L 100.0100, L501.9985, L500.4050 ####[facility] [address] [place], [address] CA,Total 7.7 mg/dL Low 8.5-10.1 [facility] Comment on above: Performed By: #### L 100.0100, L501.9985, L500.4050 ####[facility] [address] [place], [address] Chloride [Moles/Vol] 103 mmol/L Normal 98-107 [facility] Comment on above: Performed By: #### L 100.0100, L501.9985, L500.4050 ####[facility] [address] [place], [address] CO2 [Moles/Vol] 21.0 mmol/L Normal 21.0-32.0 [facility] Comment on above: Performed By: #### L 100.0100, L501.9985, L500.4050 ####[facility] [address] [place], [address] Creatinine [Mass/Vol] 0.62 mg/dL Low 0.70-1.30 [facility] Comment on above: Result Comment: The validity of the calculated GFR GFRAA in patients over 70 years has not been determined. Clinical correlation is essential. Performed By: #### L 100.0100, L501.9985, L500.4050 ####[facility] [address] [place], [address] ECRCL 99.92 ml/min Normal [facility] Comment on above: Performed By: #### L 100.0100, L501.9985, L500.4050 ####[facility] [address] [place], [address] EST GFR - AA 172 mL/min Normal >60 [facility] Comment on above: Result Comment: Afri can [place] GFR Calc Performed By: #### L 100.0100, L501.9985, L500.4050 ####[facility] [address] [place], [address] GAP 11 Normal 5-15 [facility] Comment on above: Performed By: #### L 100.0100, L501.9985, L500.4050 ####[facility] [address] [place], [address] GFR/1.73 sq M.predicted among non-blacks MDRD (S/P/Bld) [Vol rate/Area] 142 mL/min/{1.73_m2} Normal >60 [facility] Comment on above: Result Comment: Non- GFR Calc Performed By: #### L 100.0100, L501.9985, L500.4050 ####[facility] [address] [place], [address] Globulin (S) [Mass/Vol] 3.3 g/dL Normal 2.2-4.2 [facility] Comment on above: Performed By: #### L 100.0100, L501.9985, L500.4050 ####[facility] [address] [place], [address] Glucose [Mass/Vol] 73 mg/dL Low 74-106 [facility] Comment on above: Performed By: #### L 100.0100, L501.9985, L500.4050 ####[facility] [address] [place], [address] Potassium [Moles/Vol] 3.5 mmol/L Normal 3.5-5.1 [facility] Comment on above: Performed By: #### L 100.0100, L501.9985, L500.4050 ####[facility] [address] [place], [address] Sodium [Moles/Vol] 135 mmol/L Low 136-145 [facility] Comment on above: Performed By: #### L 100.0100, L501.9985, L500.4050 ####[facility] [address] [place], [address] T PROT 5.8 g/dL Low 6.4-8.2 [facility] Comment on above: Performed By: #### L 100.0100, L501.9985, L500.4050 ####[facility] [address] [place], [address] Urea nitrogen [Mass/Vol] 12 mg/dL Normal 7-18 [facility] Comment on above: Performed By: #### L 100.0100, L501.9985, L500.4050 ####[facility] [address] [place], [address] Consultation - Infectious Dx on 06-07-2024 Consultation - Infectious Dx [facility] Medical Records Department [address] [place] [address] Consultation - Infectious Dx 06/07/24 1442 MR#: [id number] Acct: [id number] Name: JIAN ALTAMIRANO Rep #: [id number] : 1965 58 From: Willard Pettit MD PCP: Dr. Clifford Estes MD Status:ADM IN Location: [facility]3 [id number] Assessment Plan Assessment/Plan (1) Cavitating mass in left lower lung lobe: PLAN: No clinical signs of active infection at this time. Small cavitary lesion in the left lower lobe unclear etiology. Recommend to follow CT scan of the chest in 3 to 6 months. If the lesion does increase in size would recommend a diagnostic bronchoscopy. Patient does have a chronic indwelling Hannon catheter with persistent bacteriuria, will discontinue vancomycin and meropenem at this time HPI Consult Data Date of Consult: 06/07/24 HPI Narrative Reason for Consultation: Cavitary lung lesion with left lower lobe HPI Narrative: JIAN ALTAMIRANO, is a 58 M who presents multiple comorbidities including seizure disorder with underlying hydrocephalus, neurogenic bladder with a chronic indwelling Hannon catheter who was recently admitted found to have an abnormal CT scan involving his left lower lung. Patient currently has NG tube in place. No documented fevers. I did review his CT scan of the chest that shows a small 1.1 cm cavitary lesion. In talking the patient he denies any significant phlegm production. No hemoptysis. No pleuritic chest pain. No fevers at home. Denies any night sweats. Currently on vancomycin plus meropenem [facility] Medical History COVID-19 Complicated UTI (urinary tract infection) Hydrocephalus Hyponatremia Chronic indwelling Hannon catheter Chronic intestinal pseudo-obstruction BPH (benign prostatic hyperplasia) Chronic hyponatremia Normal pressure hydrocephalus Bladder stones Bladder diverticulum Inguinal hernia Catheter-associated urinary tract infection Hyponatremia Hypertension Seizures Gastroparesis Ileus Chronic indwelling Hannon catheter Hydrocephalus History of urinary retention Home Medications ???Medication ???Instructions ???Recorded ???Last Taken ???Type baclofen 5 mg tablet 5 mg PO TID MUSCLE SPASMS 07/21/22 02/20/23 History linaclotide 290 mcg capsule 290 mcg PO DAILY IRRITABLE BOWELS 08/09/23 Unknown History (Linzess) prucalopride 2 mg tablet 2 mg PO DAILY CHRONIC CONSTIPATION 08/09/23 Unknown History (Motegrity) metoclopramide HCl 5 mg tablet 5 mg PO Q6H PRN nausea and vomiting 09/20/23 Unknown History (Reglan) bisacodyl 10 mg rectal suppository 10 mg [place] DAILY PRN Constipation #0 09/22/23 Unknown Rx ea Allergy/AdvReac Type Severity Reaction Status Date / Time Iodinated Contrast Media Allergy Anaphylaxis Verified 06/06/24 01:10 (Iodinated Contrast Media - IV Dye) nitrofurantoin AdvReac Upset Verified 06/06/24 01:10 Stomach Family History (Updated 06/06/24 @ 15:[address] Nikki Celestin MD) Father Heart disease Kidney stones Prostate disease Hypertension Brother Kidney stones Mother Cancer Hypertension Peptic ulcer disease Surgical History SOFT SHOE DANCER (ventriculoperitoneal) shunt status S/P release of urethral stricture S/P SOFT SHOE DANCER shunt Social History household members: family Smoking Status: Never smoker alcohol intake: never substance use type: does not use ROS ROS Narrative As stated in history of present illness others negative Physical Exam Narrative Alert and responsive does not appear acutely ill lungs are clear heart exam S1-S2 abdomen soft. Indwelling Hannon catheter is in place Lab / Micro Data 06/07/24 06:18 06/07/24 06:18 Labs: Laboratory Results - last 24 hr 06/06/24 17:40: MRSA (PCR) Negative 06/07/24 06:18: WBC 8.9, RBC 4.01 L, Hgb 11.8 L, Hct 36.0 L, MCV 89.8 D, MCH 29.4, MCHC 32.8 D, RDW Std Deviation 43.8, RDW Coeff of Frieda 13.1, Plt Count 284, MPV 10.7, Immature Gran % (Auto) 0.300, Neut % (Auto) 69.2, Lymph % (Auto) 13.9 L, [place] % (Auto) 15.5 H, Eos % (Auto) 0.8, Baso % (Auto) 0.3, Absolute Neuts (auto) 6.1, Absolute Lymphs (auto) 1.23, Nucleated RBC % 0, Sodium 135 L, Potassium 3.5, Chloride 103, Carbon Dioxide 21.0, Anion Gap 11, BUN 12, Creatinine 0.62 L, Estim Creat Clear Calc 99.92, Est GFR (MDRD) Af Amer 172, Est GFR (MDRD) Non-Af 142, BUN/Creatinine Ratio 19.3, Glucose 73 L, Hemoglobin A1c 5.1, Calcium 7.7 L, Total Bilirubin 0.70, AST 12 L, ALT 13 L, Alkaline Phosphatase 62, Total Protein 5.8 L, Albumin 2.5 L, Globulin 3.3, Albumin/Globulin Ratio 0.8 L 06/07/24 12:42: POC Glucose 72 L Micro: Microbiology 06/06/24 02:59 Urine Catheter - Hannon Urine Culture - Preliminary (more content not included)... Normal [facility] Hemoglobin A1con 06-07-2024 HbA1c (Bld) [Mass fraction] 5.1 % Normal 3.8-5.6 [facility] Comment on above: Result Comment: Norm al < 5.7 % Prediabetic 5.7 - 6.4 % Diabetic >or= 6.5 % Please note range changes. Performed By: #### L 100.0100, L501.9985, L500.4050 ####[facility] [address] [place], [place], [address] Small Bowel Series Onlyon Small Bowel Series Only [facility] Imaging Services [address] [place], [place] [id number] Small Bowel Series Only MR#: [id number] Acct: [id number] Name: JIAN ALTAMIRANO Reuben Rep #: [id number] : 1965 M 58 From: Kingsley pratt MD PCP: Dr. Clifford Estes MD Status: ADM IN Study: Small Bowel Series Only Date of Exam: 06/07/24 Exam# [id number] Ordering Dr: Myke Diego MD [id number] STUDY: GASTROGRAFIN SMALL BOWEL FOLLOW-THROUGH EXAMINATION. REASON FOR EXAM: Male, 58 years old. f/u SBO -- Films: Immediately post GG, 6 h, 12 h, and 24h TECHNIQUE: Gastrografin was introduced into the indwelling nasogastric tube. Imaging was performed at 6 hours, 12 hours and 24 hours following the placement of the contrast. COMPARISON: None. FINDINGS: On the 6 hour study, contrast is seen throughout the entire colon. There is evidence of a dilated small bowel loops. This may represent an ileus pattern. Contrast is still seen in the colon on the 24 hour image. RAD/Small Bowel Series Only IMPRESSION: No evidence of the small bowel obstruction although there is evidence of small bowel dilatation suggestive of ileus pattern. Electronically Signed: Kingsley Butler MD at 13:39 EDT Reading Location ID and State: [address] [place] [address] , Service support , CC: Dr. Myke Diego MD; Dr. Clifford Estes MD Tank House Operator: Signed Normal [facility] Abdomen Single View (Portabl e)on 06-06-2024 Abdomen Single View (Portable) [facility] [address] [place], [place] [id number] Abdomen Single View (Portable) MR#: [id number] Acct: [id number] Name: NISHAMINAJIAN Rep #: [id number] : 1965 M 58 From: Beck Mcgovern MD PCP: Dr. Clifford Estes MD Status: REG ER Study: Abdomen Single View (Portable) Date of Exam: 0 06/06/24 Exam# [id number] Ordering Dr: Arely Wallace DO [id number] INDICATION: NG Insertion EXAMINATION/TECHNIQUE: X-RAY - XR Abdomen 1 View COMPARISON: Shunt series on same day FINDINGS: BOWEL GAS PATTERN: Enteric tube projects subdiaphragmatic within the stomach. Persistent upper abdominal distention of bowel, slightly decreased from prior exam. Right ventriculoperitoneal shunt better assessed on shunt series FREE AIR: No specific evidence of pneumoperitoneum. ORGANOMEGALY: Not seen. CALCIFICATIONS: No concerning calcifications. LOWER CHEST: No acute pathology. BONES AND SOFT TISSUES: No acute pathology. RAD/Abdomen Single View (Portable) IMPRESSION: Enteric tube projects subdiaphragmatic within the stomach. Upper abdominal bowel distention, slightly decreased from prior exam. Electronically Signed: Beck Mcgovern MD at 4:44 EDT Reading Location ID and State: [facility] / [place] Tel , Service support , CC: Dr. Arely Wallace DO; Dr. Clifford Estes MD Tank House Operator: Signed Normal [facility] Abdomen/Pelvis without Conto n 06-06-2024 Abdomen/Pelvis without Cont [facility] Services [address] [place] [id number] Abdomen/Pelvis without Cont MR#: [id number] Acct: [id number] Name: JIAN ALTAMIRANO Rep #: [id number] : 1965 M 58 From: Beck Mcgovern MD PCP: Dr. Clifford Estes MD Status: REG ER Study: Abdomen/Pelvis without Cont Date of Exam: 05/15 03/07 Exam# [id number] Ordering Dr: Arely Wallace DO ADDENDUM by Dr. Beck Mcgovern MD on 06/06/24 at 0354 == ADDENDUM == [id number] ADDENDUM: Additional impression 4: Left lower lobe cavitary lesion with layering fluid, commonly infectious such as with fungal or mycobacterial infection. Cystic neoplasm less likely. Consider dedicated CT chest and pulmonary follow-up Electronically Signed: Beck Mcgovern MD at 3:54 EDT , N.B. : The above Results were Read Back by Beck Mcgovern MD to Dr. Arely Wallace DO, and understanding confirmed on 06/06/2024 03:07:22 (ET). 06/06/24 0354 Date cc: Dr. Arely Wallace DO; Dr. Clifford Estes MD * Signed ADDENDUM by Dr. Beck Mcgovern MD on 06/06/24 at 0305 [id number] INDICATION: Pain EXAMINATION: CT ABDOMEN AND PELVIS WITHOUT CONTRAST - CT Abdomen And Pelvis W/O Contrast Injection TECHNIQUE: Helically acquired images were obtained of the abdomen and pelvis without oral or IV contrast. A radiation dose optimization technique was used for this scan. IV Contrast dosage and agent: None. Oral contrast: None. COMPARISON: CT November 28, 2023. FINDINGS: LOWER CHEST: Left basilar 1.1 cm cavitary lesion with layering fluid, axial image 11. No cardiomegaly or pericardial effusion. LIVER: Homogeneous. No focal mass. GALLBLADDER AND BILIARY TREE: No calcified gallstones. No gallbladder distension or wall edema. No intra- or extrahepatic biliary ductal dilation. PANCREAS: No focal cystic or solid mass. SPLEEN: Normal size without focal cystic or solid mass. ADRENAL GLANDS: No nodules. KIDNEYS AND URETERS: 5 mm nonobstructive left renal stone. No hydronephrosis or perinephric inflammation. Benign left renal cyst, no imaging follow-up required. Unremarkable ureters. Hannon catheter mostly decompressed the bladder with mild wall thickening and adjacent inflammatory stranding. . PERITONEUM: [Abdominal ventricular peritoneal shunt noted. No ascites or free air. No other fluid collection. BOWEL: Stomach is distended with fluid without wall thickening or surrounding inflammation. Diffuse small bowel distention up to 4 cm with transition to decompressed small bowel in the central abdomen, axial image 93 and coronal image 31. No colonic distention or wall thickening. Redundant sigmoid colon extends into the right upper quadrant. Appendix is not seen. No right lower quadrant inflammation to suggest appendicitis. LYMPH NODES: No enlarged mesenteric or retroperitoneal lymph nodes. VESSELS: Aorta is non-dilated. ABDOMINAL WALL: Small fat-containing inguinal hernias, left greater than right. Within the left inguinal hernia there is a 1.9 cm curvilinear tube like device with surrounding air, unchanged from November 28, 2023 BONES: No lytic or blastic abnormality. Severe left hip osteoarthritis with femoral acetabular remodeling. Mild right hip osteoarthritis.. 06/06/24 0305 Date cc: Dr. Arely Wallace DO; Dr. Clifford Estes MD * Signed ADDENDUM by Dr. Beck Mcgovern MD on 06/06/[address]/Abdomen/Pelvis without Cont IMPRESSION: undefined 06/06/24 0401 Date cc: Dr. Arely Wallace DO; Dr. Clifford Estes MD * Signed ADDENDUM by Dr. Beck Mcgovern MD on 06/06/[address]/Abdomen/Pelvis without Cont IMPRESSION: Mid small bowel bowel obstruction with transition to decompressed bowel in the central abdomen. No evidence of perforation. Bladder partially decompressed by Hannon catheter with mild wall thickening adjacent inflammation. Correlate with urine for evidence of cystitis. Nonobstructive left nephrolithiasis. N.B. : The above Results were Read Back by Beck Mcgovern MD to Dr. Arely Wallace DO, and understanding confirmed on 06/06/2024 03:07:22 (ET). Electronically Signed: Beck Mcgovern MD at 3:05 EDT , 06/06/24 0314 Date cc: Dr. Arely Wallace DO; Dr. Clifford Estes MD * Signed We are attempting to reach an attending provi (more content not included)... Normal [facility] CBC W/Diff, Automatedon 05-15 PATH REV Reviewed Normal [facility] Comment on above: Result Comment: Neut rophilic leukocytosis. Clinical correlation necessary. Rony Simons M.D. 06/06/24 AMENDED REPORT 06/06/24 1049 PATH REV previously reported as: March Performed By: #### L 501.2450, L100.0100, L500.4050, L503.6005 #### [facility] [address] [facility] [place], [address] Chest without Contraston Chest without Contrast [facility] Services [address] [place] [address] Chest without Contrast MR#: [id number] Acct: [id number] Name: JIAN ALTAMIRANO Rep #: [id number] : 1965 M 58 From: Kingsley pratt MD PCP: Dr. Clifford Estes MD Status: REG ER Study: Chest without Contrast Date of Exam: 06/06/24 Exam# [id number] Ordering Dr: Arian Ching DO [id number] STUDY: CT CHEST WITHOUT CONTRAST REASON FOR EXAM: Male, 58 years old. Lung lesion RADIATION DOSAGE (If Supplied By Facility): CTDIvol = ( 9.61 ) mGy, DLP = ( 360.40 ) mGycm TECHNIQUE: Transaxial imaging was performed without the administration of intravenous contrast material. Multiplanar coronal and sagittal images were reformatted. Individualized dose optimization techniques were used for this CT. COMPARISON: Comparison is made with prior CT scan of the abdomen and pelvis dated June 06, 2024. FINDINGS: CHEST An orogastric tube is seen within the esophagus. There is a 1.1 cm partially cavitated lesion in the posterior aspect of the left lower lobe. This may represent either focal bronchiectasis with fluid versus a cavitary nodule. Increased markings at the lung bases slightly more prominent on the right side suggestive of scarring and/or atelectasis. Calcified right pleural plaques. There are calcifications of the coronary arteries. Normal mediastinum. Normal hilar regions. Normal unenhanced pulmonary arteries. Normal aorta arch and descending thoracic aorta. There are multi-level degenerative changes of the thoracic spine. Fluid-filled small bowel loops. CT/Chest without Contrast IMPRESSION: 1.1 cm cavitated nodule at the left lung base. Three-month follow-up is recommended. Findings suggestive of scarring at the lung bases with calcified pleural plaques on the right side. Electronically Signed: Kingsley Butler MD at 15:19 EDT , CC: Dr. Arian Ching DO; Dr. Clifford Estes MD Tank House Operator: Signed Normal [facility] Comprehensive Metabolic Prof inon 06-06-2024 Albumin [Mass/Vol] 3.9 g/dL Normal 3.2-5.0 [facility] Comment on above: Performed By: #### L 501.2450, L100.0100, L500.4050, L503.6005 #### [facility] [address] [place], [address] Albumin/Globulin [Mass ratio] 0.8 {ratio} Low 0.9-2.4 [facility] Comment on above: Performed By: #### L 501.2450, L100.0100, L500.4050, L503.6005 #### [facility] [address] [place], [address] ALK P 92 U/L Normal 45-117 [facility] Comment on above: Performed By: #### L 501.2450, L100.0100, L500.4050, L503.6005 #### [facility] [address] [place], [address] ALT [Catalytic activity/Vol] 19 U/L Normal 16-61 [facility] Comment on above: Performed By: #### L 501.2450, L100.0100, L500.4050, L503.6005 #### [facility] [address] [place], [address] AST [Catalytic activity/Vol] 14 U/L Low 15-37 [facility] Comment on above: Performed By: #### L 501.2450, L100.0100, L500.4050, L503.6005 #### [facility] [address] [place], [address] Bilirubin [Mass/Vol] 1.50 mg/dL High 0.20-1.00 [facility] Comment on above: Result Comment: For patients on eltrombopag therapy, use of Dimension [place] TBIL is not recommended. Performed By: #### L 501.2450, L100.0100, L500.4050, L503.6005 #### [facility] [address] [place], [address] BUN/CRE 15.0 RATIO Normal 10-20 [facility] Comment on above: Performed By: #### L 501.2450, L100.0100, L500.4050, L503.6005 #### [facility] [address] [place], [address] CA,Total 9.9 mg/dL Normal 8.5-10.1 [facility] Comment on above: Performed By: #### L 501.2450, L100.0100, L500.4050, L503.6005 #### [facility] [address] [place], [address] Chloride [Moles/Vol] 85 mmol/L Low 98-107 [facility] Comment on above: Performed By: #### L 501.2450, L100.0100, L500.4050, L503.6005 #### [facility] [address] [place], [address] CO2 [Moles/Vol] 25.0 mmol/L Normal 21.0-32.0 [facility] Comment on above: Performed By: #### L 501.2450, L100.0100, L500.4050, L503.6005 #### [facility] [address] [place], [address] Creatinine [Mass/Vol] 1.07 mg/dL Normal 0.70-1.30 [facility] Comment on above: Result Comment: The validity of the calculated GFR GFRAA in patients over 70 years has not been determined. Clinical correlation is essential. Performed By: #### L 501.2450, L100.0100, L500.4050, L503.6005 #### [facility] [address] [place], [address] ECRCL 60.08 ml/min Normal [facility] Comment on above: Performed By: #### L 501.2450, L100.0100, L500.4050, L503.6005 #### [facility] [address] [place], [address] EST GFR - AA 92 mL/min Normal >60 [facility] Comment on above: Result Comment: Afri can [place] GFR Calc Performed By: #### L 501.2450, L100.0100, L500.4050, L503.6005 #### [facility] [address] [place], [address] GAP 11 Normal 5-15 [facility] Comment on above: Performed By: #### L 501.2450, L100.0100, L500.4050, L503.6005 #### [facility] [address] [place], [address] GFR/1.73 sq M.predicted among non-blacks MDRD (S/P/Bld) [Vol rate/Area] 76 mL/min/{1.73_m2} Normal >60 [facility] Comment on above: Result Comment: Non- GFR Calc Performed By: #### L 501.2450, L100.0100, L500.4050, L503.6005 #### [facility] [address] [place], [address] Globulin (S) [Mass/Vol] 4.6 g/dL High 2.2-4.2 [facility] Comment on above: Performed By: #### L 501.2450, L100.0100, L500.4050, L503.6005 #### [facility] [address] [place], [address] Glucose [Mass/Vol] 142 mg/dL High 74-106 [facility] Comment on above: Result Comment: Fast ing Glucose result greater than or equal to 126 mg/dL suggests DIABETES MELLITUS per A.D.A. criteria. Performed By: #### L 501.2450, L100.0100, L500.4050, L503.6005 #### [facility] [address] [place], [address] Potassium [Moles/Vol] 3.6 mmol/L Normal 3.5-5.1 [facility] Comment on above: Performed By: #### L 501.2450, L100.0100, L500.4050, L503.6005 #### [facility] [address] [place], [address] Sodium [Moles/Vol] 121 mmol/L Low 136-145 [facility] Comment on above: Performed By: #### L 501.2450, L100.0100, L500.4050, L503.6005 #### [facility] [address] [place], [address] T PROT 8.5 g/dL High 6.4-8.2 [facility] Comment on above: Performed By: #### L 501.2450, L100.0100, L500.4050, L503.6005 #### [facility] [address] [place], [address] Urea nitrogen [Mass/Vol] 16 mg/dL Normal 7-18 [facility] Comment on above: Performed By: #### L 501.2450, L100.0100, L500.4050, L503.6005 #### [facility] [address] [place], [address] Consultation - Surgicalon Consultation - Surgical [facility] Medical Records Department [address] [place] [address] Consultation - Surgical 06/06/248 MR#: [id number] Acct: [id number] Name: JIAN ALTAMIRANO Rep #: [id number] : 1965 58 From: Myke Diego MD PCP: Dr. Clifford Estes MD Status:ADM IN Location: [id number] Assessment Plan Assessment/Plan (1) Complete obstruction of small intestine: PLAN: Patient is a 58-year-old male with moderately complex past medical history inclusive of recurrent small bowel obstructions who presents with signs and symptoms of a recurrent obstruction. He notes that all of his symptoms developed acutely yesterday after normal bowel movement. He shares that he is improved now after nasogastric tube decompression. Indeed, on exam his abdomen is benign. There is approximately 600 mL of mildly bilious simple fluid in the nasogastric tube collection. Patient does deny any passage of flatus. Based on patient's exam and his history of resolution through conservative measures I would be inclined to pursue a small bowel follow-through tomorrow via his nasogastric tube. However, if he were to fail this test he would require transfer to a tertiary facility given the concurrent ventriculoperitoneal shunt. Myke Diego MD General Surgery Endocrine Surgery Pager: [facility] [address] [place] [address], [address] [place] [id number] Office: [phone] HPI Consult Data Date of Consult: 06/06/24 HPI Narrative Reason for Consultation: Small bowel obstruction HPI Narrative: JIAN ALTAMIRANO, is a 58 M who presented to [facility] last evening after acutely developing abdominal discomfort, nausea and vomiting. He is well-known to me and our service for history of recurrent small bowel obstructions but was last seen by me in March 2023. He shares that overall he has done better from a small bowel obstruction standpoint but was fairly recently operated on for "urologic issues" (later specified to mean removal of bladder stones) at the [facility]. He notes that he was having a reasonable day yesterday and actually even had a bowel movement yesterday before he developed the nausea and vomiting. CT imaging of the abdomen pelvis was obtained and showed evidence of a transition point within the mid abdomen. Transfer was sought to a tertiary facility given patient's indwelling ventriculoperitoneal shunt and while acceptance was made bed availability was not guaranteed. Ultimately patient was admitted to the hospital by the hospitalist service as he awaited transfer. A nasogastric tube was placed in this interim and Mr. Altamirano confirms that he now feels better after its placement. [facility] Medical History COVID-19 Complicated UTI (urinary tract infection) Hydrocephalus Hyponatremia Chronic indwelling Hannon catheter Chronic intestinal pseudo-obstruction BPH (benign prostatic hyperplasia) Chronic hyponatremia Normal pressure hydrocephalus Bladder stones Bladder diverticulum Inguinal hernia Catheter-associated urinary tract infection Hyponatremia Hypertension Seizures Gastroparesis Ileus Chronic indwelling Hannon catheter Hydrocephalus History of urinary retention Home Medications ???Medication ???Instructions ???Recorded ???Last Taken ???Type baclofen 5 mg tablet 5 mg PO TID MUSCLE SPASMS 07/21/22 02/20/23 History linaclotide 290 mcg capsule 290 mcg PO DAILY IRRITABLE BOWELS 08/09/23 Unknown History (Linzess) prucalopride 2 mg tablet 2 mg PO DAILY CHRONIC CONSTIPATION 08/09/23 Unknown History (Motegrity) metoclopramide HCl 5 mg tablet 5 mg PO Q6H PRN nausea and vomiting 09/20/23 Unknown History (Reglan) bisacodyl 10 mg rectal suppository 10 mg [place] DAILY PRN Constipation #0 09/22/23 Unknown Rx ea Allergy/AdvReac Type Severity Reaction Status Date / Time Iodinated Contrast Media Allergy Anaphylaxis Verified 06/06/24 01:10 (Iodinated Contrast Media - IV Dye) nitrofurantoin AdvReac Upset Verified 06/06/24 01:10 Stomach Family History (Updated 06/06/24 @ 15:[address] Nikki Celestin MD) Father Heart disease Kidney stones Prostate disease Hypertension Brother Kidney stones Mother Cancer Hypertension Peptic ulcer disease Surgical History SOFT SHOE DANCER (ventriculoperitoneal) shunt status S/P release of urethral stricture S/P SOFT SHOE DANCER shunt Social History household members: family Smoking Status: Never smoker alcohol intake: never substance use type: does not use ROS Gastrointestinal Gastrointestinal: Reports abdominal pain, nausea and vomiting Physical Exam Const (more content not included)... Normal [facility] Emergency Department Summary on 06-06-2024 Emergency Department Summary [facility] Medical Records Department [address] [place] [address] Emergency Department Summary 06/06/24 MR#: [id number] Acct: [id number] Name: JIAN ALTAMIRANO Rep #: [id number] : 1965 58 From: Arely [place] DO PCP: Dr. Clifford Estes MD Status:REG ER Location: ED HPI HPI - GI History of Present Illness Chief Complaint: Abd Pain Detail of Chief Complaint: Abdominal pain Informant: patient Narrative Narrative: Patient presents with abdominal pain that started today. Patient went to bed and was heard by family member dry ramírez. Patient ended up vomiting x 2. Temperature was checked and was 100.8. Patient has history of frequent obstructions of the bowel. He has a SOFT SHOE DANCER shunt for history of hydrocephalus. Patient had a headache earlier in the day but not currently. Patient has an indwelling Hannon catheter. Last bowel movement was today. PFSH PFSH Medical History Acute hyponatremia Bladder diverticulum Bladder stones BPH (benign prostatic hyperplasia) Catheter-associated urinary tract infection Chronic hyponatremia Chronic indwelling Hannon catheter Chronic indwelling Hannon catheter Chronic intestinal pseudo-obstruction Complicated UTI (urinary tract infection) COVID-19 Gastroparesis History of urinary retention Hydrocephalus Hydrocephalus Hypertension Hyponatremia Hyponatremia Ileus Inguinal hernia Normal pressure hydrocephalus Seizures Home Medications ???Medication ???Instructions ???Recorded ???Last Taken ???Type baclofen 5 mg tablet 5 mg PO TID MUSCLE SPASMS 07/21/22 02/20/23 History linaclotide 290 mcg capsule 290 mcg PO DAILY IRRITABLE BOWELS 08/09/23 Unknown History (Linzess) prucalopride 2 mg tablet 2 mg PO DAILY CHRONIC CONSTIPATION 08/09/23 Unknown History (Motegrity) metoclopramide HCl 5 mg tablet 5 mg PO Q6H PRN nausea and vomiting 09/20/23 Unknown History (Reglan) bisacodyl 10 mg rectal suppository 10 mg [place] DAILY PRN Constipation #0 09/22/23 Unknown Rx ea Allergy/AdvReac Type Severity Reaction Status Date / Time Iodinated Contrast Media Allergy Anaphylaxis Verified 06/06/24 01:10 (Iodinated Contrast Media - IV Dye) nitrofurantoin AdvReac Upset Verified 06/06/24 01:10 Stomach Family History Father Heart disease Kidney stones Prostate disease Brother Kidney stones Other Cancer Peptic ulcer disease Surgical History S/P release of urethral stricture S/P SOFT SHOE DANCER shunt SOFT SHOE DANCER (ventriculoperitoneal) shunt status Social History household members: family Smoking Status: Never smoker alcohol intake: never substance use type: does not use ROS ROS ED Review of Systems ROS Unobtainable: other Constitutional Constitutional ED: Reports lethargy; Denies chills, fever(s), sweats or weight loss Eyes Eyes: Denies blurry vision, change in vision or diplopia ENT ENT ED: Denies rhinorrhea or sore throat Cardiovascular Cardiovascular: Reports chest pain and racing heartbeat; Denies orthopnea Respiratory/Chest Respiratory/Chest: Denies cough, dyspnea, dyspnea on exertion, orthopnea or sputum Gastrointestinal Gastrointestinal: Reports abdominal pain, nausea and vomiting; Denies diarrhea Genitourinary Genitourinary ED: Denies dysuria, hematuria or urinary frequency Musculoskeletal Musculoskeletal: Denies arthralgias, back pain, myalgias or neck pain Integumentary Denies abscess, Abrasions or rash Neurologic Neurologic: Denies headache(s) or weakness Psychiatric Psychiatric: Denies anxiety, depression or suicidal thoughts Endocrine Endocrinology: Denies polydipsia, polyphagia or polyuria Hematologic/Lymphatic Hematologic/Lymphatic: Denies easy bleeding, easy bruising or lymphadenopathy Allergic/Immunologic Allergic/Immunologic ED: Denies mouth swelling, tongue swelling or urticaria EXAM Physical Exam Const Vital Signs: 06/06/24 01:10 06/06/24 02:25 06/06/24 03:25 Temperature 97 F L 98.4 F 98.7 F Temperature Source Temporal Oral Oral Pulse Rate 105 H 122 H 93 Respiratory Rate 17 22 H 16 Blood Pressure 130/92 H 132/80 H 96/66 Blood Pressure Mean 104 97 76 Pulse Ox 94 96 94 Oxygen Delivery Method Room Air Room Air Room Air 06/06/24 04:00 Temperature 98 F Temperature Source Oral Pulse Rate 99 Respiratory Rate 20 H Blood Pressure 124/79 H Blood Pressure Mean 94 Pulse Ox 94 Oxygen Delivery Method Room Air Positive well nourished and well developed General Appearance ED: well developed and NAD HEENT Reports TM's clear and moist mucous membranes normoceph (more content not included)... Normal [facility] H AND P Exam - Hospitaliston 06-06-2024 H&P Exam - Hospitalist [facility] Medical Records Department [address] [place] [address] H P Exam - Hospitalist 06/06/24 1431 MR#: [id number] Acct: [id number] Name: JIAN ALTAMIRANO Rep #: [id number] : 1965 58 From: Nikki Celestin MD PCP: Dr. Clifford Estes MD Status:ADM IN Location: [id number] HPI - General General Date of Admission: 06/06/24 Date of Service: 06/06/24 Chief Complaint: Abdominal pain, N/V, Fever. HPI Narrative The patient is a 58 y/o M w/ PMHx: Chronic Hyponatremia (130 usual average but vacillates between low 120s-mid 130s), HTN, Hx Seizure disorder, Gastroparesis, Neurogenic bladder with chronic indwelling hannon catheter, NPH/Hydrocephalus/Functi onal paraplegia with wheelchair bound status s/p SOFT SHOE DANCER shunt placement, Hx prior SBO who presents to the [facility] ED on 06/06/24 with history of onset of abdominal pain starting 06/05/2024 with onset of nausea and dry heaving with eventual bouts of emesis with elevated temperature up to 100.8 at home with family initially reporting a mild headache earlier in the day but this dissipated with last bowel movement earlier in the day upon initial ED presentation but given ongoing symptoms prompted ED evaluation. Patient notes that the distention and abdominal pain is currently resolved and he feels much improved. He was having nausea previously but was given some IV Zofran and notes this is currently resolved. He does report feeling significantly fatigued. He does report that his urine has smelled very strong and foul. Workup in the ED included T97, heart rate 105, BP 140/92, respiratory rate 17, 94% on room air, noted to be afebrile during presentation, most recent vital signs T97.8, heart rate 90, BP 129/90, respiratory rate 13, 95% room air, CBC with WC 25.3, hemoglobin 14.8, platelet 368 with significant left shift, CMP with sodium 121, chloride 85, glucose 142, lactic acid 1.2, hepatic profile with T. bili 1.50 otherwise not marked appearing, lipase 17, urine culture pending per ED, urinalysis with elevated specific remedy 1.025, protein 100, ketone 5, occult blood 150, nitrite positive, leukocyte Estrace 500 with urine RBCs 10-25, urine to BCs greater than 100 with 4+ urine bacteria, CT abdomen and pelvis with left lower lobe cavitary lesion with layering fluid concerning for possible fungal versus mycobacterial infection with cystic neoplasm less likely, mid small bowel obstruction with transition to decompressed bowel in the central abdomen with no evidence of any perforation, bladder partially decompressed by Hannon catheter with mild wall thickening adjacent inflammation, nonobstructive left nephrolithiasis, shuntogram with no evidence of any shunt disruption, gaseous distention of bowel in the upper abdomen, no acute cardiopulmonary process identified, KUB with ET tube projecting to the send diaphragmatic within the stomach, upper abdominal bowel distention, slightly decreased from previous exam. Per discussion with ED staff patient catheter was also changed in the ED. Given these initial findings patient was treated with IV Rocephin 1 g secondary to concerns for UTI and an given bowel obstruction NG tube was placed with transfer initiated to [facility] secondary to known shunt although shuntogram appropriate given high risk for any surgical intervention with acceptance by Dr. Chakraborty general surgery. Unfortunately bed availability was noted to be significantly delayed thus hospitalist service contacted for admission evaluation. Reviewed previous urine cultures and noted significant resistance patterns thus initial decision to initiate IV imipenem versus ertapenem however also reviewed imaging study and it was noted addendum to initial CT scan with concern for left lower lobe cavitary lesion with layering fluid concerning for possible fungal versus mycobacterial infection therefore at this time CT chest is also being obtained to be cautious. Patient will be placed in appropriate precautions and if CT chest does confirm this appearance would initiate aggressive antibiotic regimen and discussed case with infectious disease. [facility] will be updated regarding these findings per discussion with staff. Awaiting these findings to determine placement/precautions needed/abx needed. [facility] Medical History COVID-19 Complicated UTI (urinary tract infection) Hydrocephalus Hyponatremia Chronic indwelling Hannon catheter Chronic intestinal pseudo-obstruction BPH (benign prostatic hyperplasia) Chronic hyponatremia Normal pressure hydrocephalus Bladder stones Bladder diverticulum Inguinal hernia Catheter-associated urinary tract infection Hyponatremia Hypertension Seizures Gastroparesis Ileus Chronic indwelling Hannon catheter Hydrocephalus History of urinary retention Home Medications ???Medicat (more content not included)... Normal [facility] Lactic Acidon 06-06-2024 Lactate [Moles/Vol] 1.2 mmol/L Normal 0.4-1.9 [facility] Comment on above: Order Comment: Y Performed By: #### L 501.2450, L100.0100, L500.4050, L503.6005 #### [facility] [address] [place], [address] Legionella Antigen Urineon 0 06-06-2024 LEGU URINE, CATHETER Legionella Antigen result interpretation: L pneumo Ag Ur Ql Negative Presumptive negative for Legionella pneumophila serogroup 1 antigen in urine, suggesting no recent or current infection. Legionella Ag, Urine Negative (See interpretation below) Normal [facility] Comment on above: Performed By: #### M 300.4500, M300.4600 ####[facility] [address] [place], [address] Lipaseon 06-06-2024 Lipase [Catalytic activity/Vol] 17 U/L Normal 13-75 [facility] Comment on above: Result Comment: Nessa hein note: LIPASE revised reference range effective 23. New Lipase methodology. Expected to produce lower values than the previous assay method. NEW Reference Range: 13 - 75 U/L Performed By: #### L 501.2450, L100.0100, L500.4050, L503.6005 #### [facility] [address] [place], [address] M R Staph Aureus DNA by PCRo n 06-06-2024 MRSA DNA ASSAY Negative Normal Negative [facility] Comment on above: Performed By: #### L 501.2450, L100.0100, L500.4050, L503.6005 #### [facility] [address] [place], [address] RESPIRATORY PANEL MOLECULARo n 06-06-2024 RP PANEL ADENOVIRUS Not Detected INFLUENZA A Not Detected INFLUENZA A (SUBTYPE H1) Not Detected INFLUENZA A (SUBTYPE H3) Not Detected INFLUENZA B Not Detected HUMAN METAPHNEUMO Not Detected PARAINFLUENZA 1 Not Detected PARAINFLUENZA 2 Not Detected PARAINFLUENZA 3 Not Detected PARAINFLUENZA 4 Not Detected RHINOVIRUS Not Detected RSV A Not Detected RSV B Not Detected Normal [facility] Comment on above: Performed By: #### M 100.638 ####[facility] [address] [place], [place], [id number] Shuntogram/Prev Placed Shunt on 06-06-2024 Shuntogram/Prev Placed Shunt [facility] [address] [place], [place] [id number] Shuntogram/Prev Placed Shunt MR#: [id number] Acct: [id number] Name: JIAN ALTAMIRANO Rep #: [id number] : 1965 M 58 From: Beck Mcgovern MD PCP: Dr. Clifford Estes MD Status: [facility] Study: Shuntogram/Prev Placed Shunt Date of Exam: Exam# [id number] Ordering Dr: Arely [place] DO [id number] INDICATION: headache, fever , vomitting EXAMINATION/TECHNIQUE: X-RAY - XR Shuntogram (Previously Placed): 5 image shunt series from skull to abdomen COMPARISON: November 28, 2023 CT. Chest radiograph September 20, 2023. FINDINGS: LINES/DEVICES: Right ventricular shunt noted without evidence of disruption from the head through the right chest and into right abdomen and pelvis.. LUNGS: No consolidation, edema or effusion. No pneumothorax. MEDIASTINUM AND CARDIOVASCULAR STRUCTURES: Cardiac silhouette not enlarged. BONES AND SOFT TISSUES: Unremarkable. ABDOMEN: Gaseous distention of bowel in upper abdomen. RAD/Shuntogram/Prev Placed Shunt IMPRESSION: No evidence of shunt disruption. Gaseous distention of bowel in the upper abdomen.. CT pending No evidence of acute cardiopulmonary process. Electronically Signed: Beck Mcgovern MD at 2:49 EDT , CC: Dr. Arely [place], DO; Dr. Clifford Estes MD Tank House Operator: Signed Normal [facility] Strep pneumoniae Antig(UR,CS F)on 06-06-2024 STPAG URINE, CATHETER Strep pneumoniae Antig(UR,CSF) [] Negative Urine Presumptive negative for pneumococcal pneumonia, suggesting no current or recent pneumococcal infection. Infection due to S pneumoniae cannot be ruled out since the antigen present in the sample may be below the detection limit of the test. Strep pneumo Test Negative URINE (See interpretation below) Normal [facility] Comment on above: Performed By: #### M 300.4500, M300.4600 ####[facility] [address] [place], [address] Urinalysis, Completeon 06-06 BACTERIA 4+ /hpf Normal None Seen [facility] Comment on above: Order Comment: Y Performed By: #### L 501.2450, L100.0100, L500.4050, L503.6005 #### [facility] [address] [place], [address] CAST,FINE GRAN 0-5 SEEN Normal 0-5 [facility] Comment on above: Order Comment: Y Performed By: #### L 501.2450, L100.0100, L500.4050, L503.6005 #### [facility] [address] [place], [address] CAST,HYALINE 0-5 SEEN Normal 0-5 [facility] Comment on above: Order Comment: Y Performed By: #### L 501.2450, L100.0100, L500.4050, L503.6005 #### [facility] [address] [place], [address] EPI,SQUAMOUS 5-10 SEEN Normal 0-5 [facility] Comment on above: Order Comment: Y Performed By: #### L 501.2450, L100.0100, L500.4050, L503.6005 #### [facility] [address] [place], [address] RBC 10-25 SEEN Normal 0-5 [facility] Comment on above: Order Comment: Y Performed By: #### L 501.2450, L100.0100, L500.4050, L503.6005 #### [facility] [address] [place], [address] WBC >100 SEEN Normal 0-5 [facility] Comment on above: Order Comment: Y Performed By: #### L 501.2450, L100.0100, L500.4050, L503.6005 #### [facility] [address] [place], [address] Mucus Ql (Urine sed) 0 SEEN Normal [facility] Comment on above: Order Comment: Y Performed By: #### L 501.2450, L100.0100, L500.4050, L503.6005 #### [facility] [address] [place], [address] Bacteria identified Cx Nom ( U)Ordered By: Jacquelyn Hernandez on 04-07-2024 Interpretation and review of laboratory results Abnormal [facility] URINE CULTUREOrdered By: Janet Hernandez on 04-07-2024 Bacteria identified Cx Nom (U) >=100,000 CFU/ml Mixed microbiota including 4 different colony types, and no one type predominating. No further workup. Abnormal [facility] XR Head to Abdomen Views for shunt patencyon 04-03-2024 IMPRESSION: Intact shunt without kink. Calcifications along the catheter suggest that it is long-standing and or nonfunctioning. Tank House Operator: PSCDavian Transcribe Date/Time: Apr 03 2024 1:38P Dictated by : WESTLEY VALE MD This examination was interpreted and the report reviewed and electronically signed by: THIEN NAGY MD on Apr 03 2024 2:46PM [facility] DIVISION OF RADIOLOGY * * *Final Report* * * DATE OF EXAM: Apr 03 2024 11:37AM CAX 5696 - XR SOFT SHOE DANCER SHUNT SERIES 5V - / PROCEDURE REASON: multiple diagnoses * * * * Physician Interpretation * * * * EXAMINATION: XR SOFT SHOE DANCER SHUNT SERIES 5V - CLINICAL HISTORY: SOFT SHOE DANCER shunt in place. TECHNIQUE: AP and lateral views of the skull; AP views of the chest and abdomen were obtained. 5 total images. COMPARISON: None. RESULT: SOFT SHOE DANCER Shunt: Right prior occipital approach ventriculoperitoneal shunt catheter extends along the right scalp into the neck and chest eventually entering the right upper quadrant abdomen with tip in the LEFT mid abdomen. No interruption or kinking of the shunt catheter tubing. Calcifications are seen adjacent to it. Chest: No pneumothorax or substantial pleural effusion. No new focal consolidation or overt pulmonary edema. Abdomen: No dilated bowel. Retained contrast. Other: Large C2 and C3 osteophytes and C4 bridging osteophyte. Multilevel degenerative changes of the cervical spine. Dysplastic LEFT hip with severe degenerative changes. DIVISION OF RADIOLOGY Provider, [facility] - 04/03/2024 * * *Final Report* * * DATE OF EXAM: Apr 03 2024 11:37AM CAX 5696 - XR SOFT SHOE DANCER SHUNT SERIES 5 - / PROCEDURE REASON: multiple diagnoses * * * * Physician Interpretation * * * * EXAMINATION: XR SOFT SHOE DANCER SHUNT SERIES 5 - CLINICAL HISTORY: SOFT SHOE DANCER shunt in place. TECHNIQUE: AP and lateral views of the skull; AP views of the chest and abdomen were obtained. 5 total images. COMPARISON: None. RESULT: SOFT SHOE DANCER Shunt: Right prior occipital approach ventriculoperitoneal shunt catheter extends along the right scalp into the neck and chest eventually entering the right upper quadrant abdomen with tip in the LEFT mid abdomen. No interruption or kinking of the shunt catheter tubing. Calcifications are seen adjacent to it. Chest: No pneumothorax or substantial pleural effusion. No new focal consolidation or overt pulmonary edema. Abdomen: No dilated bowel. Retained contrast. Other: Large C2 and C3 osteophytes and C4 bridging osteophyte. Multilevel degenerative changes of the cervical spine. Dysplastic LEFT hip with severe degenerative changes. IMPRESSION IMPRESSION: Intact shunt without kink. Calcifications along the catheter suggest that it is long-standing and or nonfunctioning. Tank House Operator: PSCB Transcribe Date/Time: Apr 03 2024 1:38P Dictated by : WESTLEY VALE MD This examination was interpreted and the report reviewed and electronically signed by: THIEN NAGY MD on Apr 03 2024 2:46PM EST [facility] Radiology Study observation (narrative) Ale[facility] XR Head to Abdomen Views for shunt patencyOrdered By: [facility] Provider on 04-03-2024 [facility] Urine Cultureon 02-13-2024 URC Proteus mirabilis [place] Count >100,000 Citrobacter freundii [place] Count >100,000 Proteus mirabilis: REACTION Ampicillin Islt CONOR >=32 R Ampicillin+Sulbac Islt CONOR 8 S ceFAZolin Islt CONOR >=64 R Cefepime Islt CONOR 16 R cefTRIAXone Islt CONOR >=64 R Ciprofloxacin Islt CONOR <=0.25 S Ertapenem Islt CONOR <=0.12 S Gentamicin Islt CONOR <=1 S levoFLOXacin Islt CONOR <=0.12 S Nitrofurantoin Islt CONOR 128 R Pip+Tazo Islt CONOR <=4 S Tobramycin Islt CONOR <=1 S TMP SMX Islt CONOR <=20 S Citrobacter freundii: REACTION ceFAZolin Islt CONOR >=64 R Cefepime Islt CONOR <=0.12 S cefTRIAXone Islt CONOR >=64 R Ciprofloxacin Islt CONOR 0.5 S Gentamicin Islt CONOR <=1 S Imipenem Islt CONOR <=0.25 S levoFLOXacin Islt CONOR 1 S Nitrofurantoin Islt CONOR <=16 S Tobramycin Islt CONOR <=1 S TMP SMX Islt CONOR <=20 S Normal [facility] Comment on above: Performed By: #### M 100.2200, L400.2010 #### [facility] [address] [place], [address] Bilirubin Test strip Ql (U)O rdered By: Clifford Estes on 02-10-2024 Bilirubin Ql (U) Negative Negative [facility] Ketones Test strip Ql (U)Ord ered By: Clifford Estes on 02-10-2024 Ketones Ql (U) Negative Negative [facility] Nitrite Test strip Ql (U)Ord ered By: Clifford Estes on 02-10-2024 Nitrite Ql (U) Positive Negative [facility] Protein Test strip Ql (U)Ord ered By: Clifford Estes on 02-10-2024 Protein Ql (U) Negative Negative [facility] Urinalysis, Routine (Dipstic k)on 02-10-2024 BILIRUBIN URINE Negative Normal Negative [facility] Comment on above: Order Comment: Urine , Random Performed By: #### M 100.2200, L4.2010 #### [facility] [address] [place], [address] Clarity (U) Sl. Cloudy Normal Clear [facility] Comment on above: Order Comment: Urine , Random Performed By: #### M 100.2200, L4 #### [facility] [address] [place], [address] Color (U) Yellow Normal Yellow [facility] Comment on above: Order Comment: Urine , Random Performed By: #### M 100.2200, L400 #### [facility] [address] [place], [address] GLUCOSE, UR Normal Normal Normal [facility] Comment on above: Order Comment: Urine , Random Performed By: #### M 100.2200, L400 #### [facility] [address] [place], [address] KETONE UR Negative Normal Negative [facility] Comment on above: Order Comment: Urine , Random Performed By: #### M 100.2200, L400 #### [facility] [address] [place], [address] LEUK ESTERASE 500 /ul Abnormal Negative [facility] Comment on above: Order Comment: Urine , Random Performed By: #### M 100.2200, L400 #### [facility] [address] [place], [address] Nitrite Ql (U) Positive Abnormal Negative [facility] Comment on above: Order Comment: Urine , Random Performed By: #### M 100.2200, L400.2010 #### [facility] [address] [place], [address] OCCULT BLOOD-UR 250 /ul Abnormal Negative [facility] Comment on above: Order Comment: Urine , Random Performed By: #### M 100.2200, L4.2010 #### [facility] [address] [place], [address] pH UR 7.0 Normal 5.0 - 8.0 [facility] Comment on above: Order Comment: Urine , Random Performed By: #### M 100.2200, L400.2010 #### [facility] [address] [place], [address] PROT DIPSTX Negative Normal Negative [facility] Comment on above: Order Comment: Urine , Random Performed By: #### M 100.2200, L400.2010 #### [facility] [address] [place], [address] SP.GR. DIPSTX 1.005 Normal 1.002-1.030 [facility] Comment on above: Order Comment: Urine , Random Performed By: #### M 100.0, L400.2010 #### [facility] [address] [place], [address] UROBILI Normal Normal Normal [facility] Comment on above: Order Comment: Urine , Random Performed By: #### M 100.2200, L400.2010 #### [facility] [address] [place], [address] Urine blood detectionOrdered By: Clifford Estes on 02-10-2024 RBC Ql (U) 250 /ul Negative [facility] Urine clarityOrdered By: Chip Estes on 02-10-2024 Clarity (U) Sl. Cloudy Clear [facility] Urine color determinationOrd ered By: Clifford Estes on 02-10-2024 Color (U) Yellow Yellow [facility] Urine glucose detectionOrder ed By: Clifford Estes on 02-10-2024 Glucose Ql (U) Normal mg/dl Normal [facility] Urine leukocyte esterase det ection by dipstickOrdered By: Clifford Estes on 02-10-2024 Leukocyte esterase Test strip Ql (U) 500 /ul Negative [facility] Urine pHOrdered By: Clifford Estes on 02-10-2024 pH (U) 7.0 [pH] 5.0 - 8.0 [facility] Urine specific gravity measu rementOrdered By: Clifford Estes on 02-10-2024 Specific gravity (U) [Rel density] 1.005 1.002-1.030 [facility] Urine urobilinogen measureme ntOrdered By: lCifford Estes on 02-10-2024 Urobilinogen Ql (U) Normal mg/dl Normal [facility] Urine Cultureon 01-27-2024 [facility] ESBL RESULTS CALLED TO Yobani VELEZ 01/25/24 1124 Blaire Fernandez. REPORT READ BACK BY . Bacteria Ur Cult Copy of report sent to Infection Control Printer [id number] 01/25/24 1129 IMGuest. Bacteria Ur Cult VRE RESULTS CALLED TO Daniel FINN 01/26/24 0947 Blaire Fernandez. REPORT READ BACK BY . Bacteria Ur Cult Copy of report sent to Infection Control Printer [id number] 01/26/24 0947 IMGuest. ESBL Escherichia coli [place] Count >100,000 MARKER A ESBL producing Organism A Providencia rettgeri [place] Count >100,000 Vancomycin Resist. E. faecilis [place] Count 80,000-100,000 Proteus mirabilis [place] Count >100,000 Alcaligenes faecalis ssp faeca [place] Count >100,000 ESBL Escherichia coli: REACTION Amikacin Islt CONOR <=2 S cefoTEtan Islt CONOR <=4 S Meropenem Islt CONOR <=0.25 S Tetracycline Islt CONOR >=16 R Cefuroxime Islt CONOR >=64 R ESBL Escherichia coli: REACTION Ampicillin Islt CONOR >=32 R Ampicillin+Sulbac Islt CONOR 4 S ceFAZolin Islt CONOR >=64 R Cefepime Islt CONOR 2 S cefTRIAXone Islt CONOR >=64 R Ciprofloxacin Islt CONOR >=4 R Ertapenem Islt CONOR <=0.12 S B-Lactamase Extended Susc Islt POS Gentamicin Islt CONOR <=1 S Imipenem Islt CONOR <=0.25 S levoFLOXacin Islt CONOR >=8 R Nitrofurantoin Islt CONOR <=16 S Pip+Tazo Islt CONOR <=4 S Tobramycin Islt CONOR <=1 S TMP SMX Islt CONOR >=320 R Providencia rettgeri: REACTION Ampicillin Islt CONOR R Ampicillin+Sulbac Islt CONOR <=2 S ceFAZolin Islt CONOR >=64 R Cefepime Islt CONOR <=0.12 S cefTRIAXone Islt CONOR <=0.25 S Ciprofloxacin Islt CONOR <=0.25 S Ertapenem Islt CONOR <=0.12 S Gentamicin Islt CONOR <=1 S Imipenem Islt CONOR 1 S levoFLOXacin Islt CONOR <=0.12 S Nitrofurantoin Islt CONOR 256 R Pip+Tazo Islt CONOR <=4 S Tobramycin Islt CONOR <=1 S TMP SMX Islt CONOR <=20 S Vancomycin Resist. E. faecilis: REACTION Ampicillin Islt CONOR 32 R Ciprofloxacin Islt CONOR >=8 R Gentamicin Synergy Susc Islt SYN-S S levoFLOXacin Islt CONOR 1 S Nitrofurantoin Islt CONOR 32 S Streptomycin High Pot Susc Islt SYN-S S Tetracycline Islt CONOR >=16 R Vancomycin Islt CONOR >=32 R Proteus mirabilis: REACTION Ampicillin Islt CONOR >=32 R Ampicillin+Sulbac Islt CONOR 4 S ceFAZolin Islt CONOR >=64 R Cefepime Islt CONOR 2 S cefTRIAXone Islt CONOR 32 R Ciprofloxacin Islt CONOR <=0.25 S Ertapenem Islt CONOR <=0.12 S Gentamicin Islt CONOR <=1 S levoFLOXacin Islt CONOR <=0.12 S Nitrofurantoin Islt CONOR 128 R Pip+Tazo Islt CONOR <=4 S Tobramycin Islt CONOR <=1 S TMP SMX Islt CONOR <=20 S Alcaligenes faecalis ssp faeca: REACTION ceFAZolin Islt CONOR 32 R Ciprofloxacin Islt CONOR 1 S Gentamicin Islt CONOR <=1 S levoFLOXacin Islt CONOR 0.5 S Tobramycin Islt CONOR <=1 S TMP SMX Islt CONOR <=20 S Normal [facility] Comment on above: Performed By: #### L 501.2450, L100.0100, L500.4050, L503.6005 #### [facility] [address] [place], [address] Urinalysis, Routine (Dipstic k)on 01-23-2024 BILIRUBIN URINE Negative Normal Negative [facility] Comment on above: Order Comment: Y Performed By: #### L 501.2450, L100.0100, L500.4050, L503.6005 #### [facility] [address] [place], [address] Clarity (U) Sl. Cloudy Normal Clear [facility] Comment on above: Order Comment: Y Performed By: #### L 501.2450, L100.0100, L500.4050, L503.6005 #### [facility] [address] [place], [address] Color (U) Yellow Normal Yellow [facility] Comment on above: Order Comment: Y Performed By: #### L 501.2450, L100.0100, L500.4050, L503.6005 #### [facility] [address] [place], [address] GLUCOSE, UR Normal Normal Normal [facility] Comment on above: Order Comment: Y Performed By: #### L 501.2450, L100.0100, L500.4050, L503.6005 #### [facility] [address] [place], [address] KETONE UR Negative Normal Negative [facility] Comment on above: Order Comment: Y Performed By: #### L 501.2450, L100.0100, L500.4050, L503.6005 #### [facility] [address] [place], [address] LEUK ESTERASE 500 /ul Abnormal Negative [facility] Comment on above: Order Comment: Y Performed By: #### L 501.2450, L100.0100, L500.4050, L503.6005 #### [facility] [address] [place], [address] Nitrite Ql (U) Negative Normal Negative [facility] Comment on above: Order Comment: Y Performed By: #### L 501.2450, L100.0100, L500.4050, L503.6005 #### [facility] [address] [place], [address] OCCULT BLOOD-UR 25 /ul Abnormal Negative [facility] Comment on above: Order Comment: Y Performed By: #### L 501.2450, L100.0100, L500.4050, L503.6005 #### [facility] [address] [place], [address] pH UR 8.0 Normal 5.0 - 8.0 [facility] Comment on above: Order Comment: Y Performed By: #### L 501.2450, L100.0100, L500.4050, L503.6005 #### [facility] [address] [place], [address] PROT DIPSTX 30 mg/dl Abnormal Negative [facility] Comment on above: Order Comment: Y Performed By: #### L 501.2450, L100.0100, L500.4050, L503.6005 #### [facility] [address] [place], [address] SP.GR. DIPSTX 1.010 Normal 1.002-1.030 [facility] Comment on above: Order Comment: Y Performed By: #### L 501.2450, L100.0100, L500.4050, L503.6005 #### [facility] [address] [place], [address] UROBILI Normal Normal Normal [facility] Comment on above: Order Comment: Y Performed By: #### L 501.2450, L100.0100, L500.4050, L503.6005 #### [facility] [address] [place], [address] Culture, Blood (WB)on 2023 CUB No growth in 5 days. Normal [facility] Comment on above: Performed By: #### M 100.2200, L400.2010 #### [facility] [address] [place], [address] Culture, Blood (WB)on 2023 CUB POSITIVE BLOOD CULTU RE GRAM STAIN= GRAM POSITIVE COCCI IN CHAINS Culture, Blood (WB) RESULTS CALLED TO Nestor SEGUNDO 11/29/23 1538 Blaire Fernandez. REPORT READ BACK BY SAME. Streptococcus mitis Amount Growth Growth Streptococcus mitis: REACTION Ampicillin Islt CONOR <=0.25 Penicillin G Islt CONOR 0.12 S Cefotaxime Islt CONOR <=0.12 S cefTRIAXone Islt CONOR 0.25 S Clindamycin Islt CONOR <=0.25 S Vancomycin Islt CONOR 0.5 S Normal [facility] Comment on above: Performed By: #### M 100.2200, L400.2010 #### [facility] [address] [place], [address] Urine Cultureon 12-01-2023 [facility] RESULTS CALLED TO Nestor SEGUNDO 11/30/23 0850 Blaire Fernandez. REPORT READ BACK BY . Bacteria Ur Cult Copy of report sent to Infection Control Printer [id number] 11/30/23 0886 RACHEAL. ESBL Escherichia coli [place] Count >100,000 MARKER A ESBL producing Organism A Proteus mirabilis [place] Count 11,000-25,000 ESBL Escherichia coli: REACTION Amikacin Islt CONOR <=2 S cefoTEtan Islt CONOR <=4 S Meropenem Islt CONOR <=0.25 S Tetracycline Islt CONOR >=16 R Cefuroxime Islt CONOR >=64 R ESBL Escherichia coli: REACTION Ampicillin Islt CONOR >=32 R Ampicillin+Sulbac Islt CONOR >=32 R ceFAZolin Islt CONOR >=64 R Cefepime Islt CONOR 2 S cefTRIAXone Islt CONOR >=64 R Ciprofloxacin Islt CONOR >=4 R Ertapenem Islt CONOR <=0.12 S B-Lactamase Extended Susc Islt POS Gentamicin Islt CONOR >=16 R Imipenem Islt CONOR <=0.25 S levoFLOXacin Islt CONOR >=8 R Nitrofurantoin Islt CONOR <=16 S Pip+Tazo Islt CONOR <=4 S Tobramycin Islt CONOR 2 S TMP SMX Islt CONOR >=320 R Proteus mirabilis: REACTION Ampicillin Islt CONOR >=32 R Ampicillin+Sulbac Islt CONOR <=2 S ceFAZolin Islt CONOR >=64 R Cefepime Islt CONOR 2 S cefTRIAXone Islt CONOR >=64 R Ciprofloxacin Islt CONOR <=0.25 S Ertapenem Islt CONOR <=0.12 S Gentamicin Islt CONOR <=1 S levoFLOXacin Islt CONOR <=0.12 S Nitrofurantoin Islt CONOR 128 R Pip+Tazo Islt CONOR <=4 S Tobramycin Islt CONOR <=1 S TMP SMX Islt CONOR <=20 S Normal [facility] Comment on above: Performed By: #### M 100.2200 ####[facility] [address] [place], [address] BC GPC IDon 11-30-2023 BC GPC ID Enterococcus sp. Not Detected Listeria spp Not Detected NAAT METHOD Testing was performed using nucleic acid amplification Staphylococcus sp. Not Detected Streptococcus spp. DETECTED mecA Not Detected Massiel/vanB Not Detected Strep not Strep pneumo Normal [facility] Comment on above: Performed By: #### M 100.2200, L400.2010 #### [facility] [address] [place], [address] Abdomen/Pelvis without Conto n 11-28-2023 Abdomen/Pelvis without Cont [facility] [address] [place] [address] Abdomen/Pelvis without Cont MR#: [id number] Acct: [id number] Name: JIAN ALTAMIRANO Rep #: [id number] : 1965 M 58 From: Raphael Spaulding DO PCP: Dr. Clifford Estes MD Status: REG ER Study: Abdomen/Pelvis without Cont Date of Exam: 11/14 04/06 Exam# [id number] Ordering Dr: Kassy Gray [id number] STUDY: CT ABDOMEN AND PELVIS WITHOUT CONTRAST REASON FOR EXAM: Male, 58 years old. abdominal pain RADIATION DOSAGE (If Supplied By Facility): CTDIvol = ( 6.72 ) mGy, DLP = ( 394.42 ) mGycm TECHNIQUE: Transaxial images were obtained from the dome of the diaphragm to the symphysis pubis without oral contrast, and without intravenous contrast. Sagittal and coronal images were reconstructed. Individualized dose optimization techniques were used for this CT. COMPARISON: August 09, 2023. FINDINGS: The visualized lung bases are unremarkable. The visualized portions of the heart are within normal limits. Normal liver. Normal gallbladder and extrahepatic biliary system. Normal spleen. Normal pancreas. Normal bilateral adrenal glands. Normal right kidney. 5 mm stone in the left kidney. 2.2 cm left renal cyst Normal visualized stomach. Normal small intestine. Fecal retention and gaseous distention in the colon. The appendix is not visualized. Normal abdominal aorta. Normal inferior vena cava. Normal retroperitoneum. There is a shunt catheter extending into the pelvis. Hannon catheter in the urinary bladder with diffuse wall thickening and diverticuli bilaterally containing calculi. There is a left inguinal hernia partially containing the left-sided urinary bladder diverticulum with calculus and mild intraluminal gas. Normal abdominal wall. Old deformity of the left hip. CT/Abdomen/Pelvis without Cont IMPRESSION: Nonobstructive left renal stone and cyst. Fecal retention and gaseous distention in the colon. There is a shunt catheter extending into the pelvis. Hannon catheter in the urinary bladder with diffuse wall thickening and diverticuli bilaterally containing calculi. There is a left inguinal hernia partially containing the left-sided urinary bladder diverticulum with calculus and mild intraluminal gas. Old left hip deformity. Electronically Signed: Raphael DO Jasson at 19:01 EST Reading Location ID and State: [facility] / [place] Tel [phone], Service support , CC: Dr. Clifford Estes MD; JESUS [employer] Operator: Signed Normal [facility] Absolute lymphocyte countOrd ered By: Reji Woods on 11-28-2023 Lymphocytes Auto (Unsp spec) [#/Vol] 0.51 10*3/uL 0.83-4.51 [facility] Amorphous sediment detection in urine sediment by light microscopyOrdered By: Reji Woods on 11-28-2023 Amorphous sediment LM Ql (Urine sed) 1+ URATE [facility] Basophil percentageOrdered B y: Reji Woods on 11-28-2023 Basophil percentage >100 SEEN /hpf 0-5 [facility] Basophils/100 WBC (Bld) 0.2 % 0-1 [facility] Bilirubin [Mass/Vol] 0.90 mg/dL 0.20-1.00 [facility] Comment on above: For patients on eltr ombopag therapy, use of Dimension [place] TBIL is not recommended. Chloride [Moles/Vol] 94 mmol/L 98-107 [facility] Eosinophils/100 WBC (Bld) 0.0 % 0-5 [facility] Glucose [Mass/Vol] 109 mg/dL 74-106 [facility] Comment on above: Fasting Glucose resu lt from 100 to 125 mg/dL suggests IMPAIRED HOMEOSTASIS per A.D.A. criteria. Neutrophils (Bld) [#/Vol] 18.7 10*3/uL 2.0-7.7 [facility] Neutrophils/100 WBC (Bld) 91.2 % 47-70 [facility] Potassium [Moles/Vol] 4.1 mmol/L 3.5-5.1 [facility] Protein [Mass/Vol] 7.6 g/dL 6.4-8.2 [facility] Sodium [Moles/Vol] 129 mmol/L 136-145 [facility] WBC (Bld) [#/Vol] 20.5 10*3/uL 4.4-11.0 [facility] Basophil percentageOrdered B y: Kassy Gray on 11-28-2023 Lactate [Moles/Vol] 2.0 mmol/L 0.4-2.0 [facility] Comment on above: CRITICAL VALUE VERIF IED. CALLED TO PAT NEVILLE RN ER11/28/[id number] Myke Connors.RESULTS READ BACK BY SAME . Previous reported result: 2.0 mmol/LEdited by: CASIMIRO on 11/28/23:1845 Bilirubin Test strip Ql (U)O rdered By: Reji Woods on 11-28-2023 Bilirubin Ql (U) Negative Negative [facility] Blood erythrocytes count (nu mber/volume)Ordered By: Reji Woods on 11-28-2023 RBC (Bld) [#/Vol] 4.89 10*6/uL 4.6-6.2 [facility] Blood hemoglobin measurement (mass/volume)Ordered By: Reji Woods on 11-28-2023 Hemoglobin (Bld) [Mass/Vol] 13.8 g/dL 13.0-16.5 [facility] Blood lymphocytes/100 leukoc ytesOrdered By: Reji Woods on 11-28-2023 Lymphocytes/100 WBC (Bld) 2.5 % 19-41 [facility] Blood manual differential co mment interpretation (narrative result)Ordered By: Reji Woods on 11-28-2023 Manual differential comment Vasu (Bld) [Interp] SCANNED [facility] Blood monocytes/100 leukocyt esOrdered By: Reji Woods on 11-28-2023 Monocytes/100 WBC (Bld) 5.3 % 0-10 [facility] Blood platelet mean volumeOr dered By: Reji Woods on 11-28-2023 Platelet mean volume (Bld) [Entitic vol] 9.3 fL 6.2-12.0 [facility] CBC W/Diff, Automatedon 11-14 SMEAR COMMENT SCANNED Normal [facility] Comment on above: Performed By: #### L 501.2450, L100.0100, L500.4050, L503.6005 #### [facility] [address] [place], [address] Comprehensive Metabolic Prof ilon 11-28-2023 Albumin [Mass/Vol] 3.3 g/dL Normal 3.2-5.0 [facility] Comment on above: Performed By: #### L 501.2450, L100.0100, L500.4050, L503.6005 #### [facility] [address] [place], [address] Albumin/Globulin [Mass ratio] 0.8 {ratio} Low 0.9-2.4 [facility] Comment on above: Performed By: #### L 501.2450, L100.0100, L500.4050, L503.6005 #### [facility] [address] [place], [address] ALK P 74 U/L Normal 45-117 [facility] Comment on above: Performed By: #### L 501.2450, L100.0100, L500.4050, L503.6005 #### [facility] [address] [place], [address] ALT [Catalytic activity/Vol] 28 U/L Normal 16-61 [facility] Comment on above: Performed By: #### L 501.2450, L100.0100, L500.4050, L503.6005 #### [facility] [address] [place], [address] AST [Catalytic activity/Vol] 25 U/L Normal 15-37 [facility] Comment on above: Performed By: #### L 501.2450, L100.0100, L500.4050, L503.6005 #### [facility] [address] [place], [address] Bilirubin [Mass/Vol] 0.90 mg/dL Normal 0.20-1.00 [facility] Comment on above: Result Comment: For patients on eltrombopag therapy, use of Dimension [place] TBIL is not recommended. Performed By: #### L 501.2450, L100.0100, L500.4050, L503.6005 #### [facility] [address] [place], [address] BUN/CRE 17.8 RATIO Normal 10-20 [facility] Comment on above: Performed By: #### L 501.2450, L100.0100, L500.4050, L503.6005 #### [facility] [address] [place], [address] CA,Total 8.6 mg/dL Normal 8.5-10.1 [facility] Comment on above: Performed By: #### L 501.2450, L100.0100, L500.4050, L503.6005 #### [facility] [address] [place], [address] Chloride [Moles/Vol] 94 mmol/L Low 98-107 [facility] Comment on above: Performed By: #### L 501.2450, L100.0100, L500.4050, L503.6005 #### [facility] [address] [place], [address] CO2 [Moles/Vol] 26.0 mmol/L Normal 21.0-32.0 [facility] Comment on above: Performed By: #### L 501.2450, L100.0100, L500.4050, L503.6005 #### [facility] [address] [place], [address] Creatinine [Mass/Vol] 0.84 mg/dL Normal 0.70-1.30 [facility] Comment on above: Result Comment: The validity of the calculated GFR GFRAA in patients over 70 years has not been determined. Clinical correlation is essential. Performed By: #### L 501.2450, L100.0100, L500.4050, L503.6005 #### [facility] [address] [place], [address] EST GFR - AA 121 mL/min Normal >60 [facility] Comment on above: Result Comment: Afri can [place] GFR Calc Performed By: #### L 501.2450, L100.0100, L500.4050, L503.6005 #### [facility] [address] [place], [address] GAP 9 Normal 5-15 [facility] Comment on above: Performed By: #### L 501.2450, L100.0100, L500.4050, L503.6005 #### [facility] [address] [place], [address] GFR/1.73 sq M.predicted among non-blacks MDRD (S/P/Bld) [Vol rate/Area] 100 mL/min/{1.73_m2} Normal >60 [facility] Comment on above: Result Comment: Non- GFR Calc Performed By: #### L 501.2450, L100.0100, L500.4050, L503.6005 #### [facility] [address] [place], [address] Globulin (S) [Mass/Vol] 4.3 g/dL High 2.2-4.2 [facility] Comment on above: Performed By: #### L 501.2450, L100.0100, L500.4050, L503.6005 #### [facility] [address] [place], [address] Glucose [Mass/Vol] 109 mg/dL High 74-106 [facility] Comment on above: Result Comment: Fast ing Glucose result from 100 to 125 mg/dL suggests IMPAIRED HOMEOSTASIS per A.D.A. criteria. Performed By: #### L 501.2450, L100.0100, L500.4050, L503.6005 #### [facility] [address] [place], [address] Potassium [Moles/Vol] 4.1 mmol/L Normal 3.5-5.1 [facility] Comment on above: Performed By: #### L 501.2450, L100.0100, L500.4050, L503.6005 #### [facility] [address] [place], [address] Sodium [Moles/Vol] 129 mmol/L Low 136-145 [facility] Comment on above: Performed By: #### L 501.2450, L100.0100, L500.4050, L503.6005 #### [facility] [address] [place], [address] T PROT 7.6 g/dL Normal 6.4-8.2 [facility] Comment on above: Performed By: #### L 501.2450, L100.0100, L500.4050, L503.6005 #### [facility] [address] [place], [address] Urea nitrogen [Mass/Vol] 15 mg/dL Normal 7-18 [facility] Comment on above: Performed By: #### L 501.2450, L100.0100, L500.4050, L503.6005 #### [facility] [address] [place], [address] Culture, urineOrdered By: Shelley Gray on 11-28-2023 Bacteria identified Cx Nom (U) ESBL Escherichia coli [facility] Bacteria identified Cx Nom (U) Proteus mirabilis [facility] Determination of erythrocyte mean corpuscular volume (MCV)Ordered By: Reji Woods on 11-28-2023 MCV (RBC) [Entitic vol] 86.1 fL 80-94 [facility] Emergency Department Summary on 11-28-2023 Emergency Department Summary [facility] Medical Records Department [address] [place] [address] Emergency Department Summary 11/28/23 MR#: [id number] Acct: [id number] Name: JIAN ALTAMIRANO Rep #: [id number] : 1965 58 From: Reji Woods DO PCP: Dr. 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 He was brought in by his sister who is one of his caregivers because this morning he had shaking and chills. She checked his axillary temperature and it was 104F and gave Tylenol at 10 AM. He had p.o. intake earlier but this afternoon vomited x 2. She administers suppositories twice daily and enemas as needed so he has a daily BM. He had a normal BM yesterday but today only still amount of liquid stool. She is concerned he could be developing a bowel obstruction. He has had this multiple times in the past and they were always managed medically. No history of abdominal surgeries. His indwelling Hannon catheter was changed today by visiting nurse and is draining well. [facility] Medical History Acute hyponatremia Bladder diverticulum Bladder stones BPH (benign prostatic hyperplasia) Catheter-associated urinary tract infection Chronic hyponatremia Chronic indwelling Hannon catheter Chronic indwelling Hannon catheter Chronic intestinal pseudo-obstruction Complicated UTI (urinary tract infection) COVID-19 Gastroparesis History of urinary retention Hydrocephalus Hydrocephalus Hypertension Hyponatremia Hyponatremia Ileus Inguinal hernia Normal pressure hydrocephalus Seizures Home Medications baclofen 5 mg tablet 5 mg PO TID MUSCLE SPASMS 07/21/22 [History Last Taken 02/20/23] linaclotide 290 mcg capsule (Linzess) 290 mcg PO DAILY IRRITABLE BOWELS 08/09/23 [History Last Taken Unknown] omeprazole 20 mg capsule,delayed release 20 mg PO DAILY ACID REFLUX 08/09/23 [History Last Taken Unknown] prucalopride 2 mg tablet (Motegrity) 2 mg PO DAILY CHRONIC CONSTIPATION 08/09/23 [History Last Taken Unknown] tamsulosin 0.4 mg capsule 0.4 mg PO 1730 PROSTATE 08/09/23 [History Last Taken Unknown] metoclopramide HCl 5 mg tablet (Reglan) 5 mg PO Q6H PRN nausea and vomiting 09/20/23 [History Last Taken Unknown] bisacodyl 10 mg rectal suppository 10 mg [place] DAILY PRN Constipation #0 ea 09/22/23 [Rx Last Taken Unknown] ciprofloxacin HCl 500 mg tablet 500 mg PO BID #10 tabs 09/22/23 [Rx Last Taken Unknown] cefuroxime axetil 500 mg tablet 500 mg PO BID #13 tabs 11/01/23 [Rx Last Taken Unknown] cephalexin 500 mg capsule 500 mg PO Q6 7 days #28 CAPSULES 11/28/23 [Rx Last Taken Unknown] Allergy/AdvReac Type Severity Reaction Status Date / Time Iodinated Contrast Media Allergy Anaphylaxis Verified 11/28/23 16:24 [Iodinated Contrast Media - IV Dye] nitrofurantoin AdvReac Upset Verified 11/28/23 16:24 Stomach Family History Father Heart disease Kidney stones Prostate disease Brother Kidney stones Other Cancer Peptic ulcer disease Surgical History S/P release of urethral stricture S/P SOFT SHOE DANCER shunt SOFT SHOE DANCER (ventriculoperitoneal) shunt status Social History household members: family Smoking Status: Never smoker alcohol intake: never substance use type: does not use ROS ROS ED ROS Narrative Constitutional: Positive for fever. Respiratory: Negative for shortness of breath, cough. GI: Positive for vomiting. Skin: Negative for rash, wound. EXAM Physical Exam Narrative Exam Narrative: CONST: Male laying in bed in no distress. EYES: Normal inspection. ENT: Normal inspection, moist mucous membranes. NECK: Normal inspection. RESP: No respiratory distress, CTAB. CVS: Regular rate and rhythm, no murmur, no gallop. ABD: Soft and nontender, no guarding or rebound, mildly distended. SKIN: Color normal, no rash, warm, dry, intact. EXTREMITIES: Normal appearance, no pedal edema. NEURO: Awake and alert. Intellectual disability, extremity contractures/atrophy. PSYCH: Normal affect. Const Vital Signs: 11/28/23 14:20 11/28/23 16:23 11/28/23 19:35 Temperature 99.0 F 98.5 F Temperature Source Temporal Oral Pulse Rate 110 H 97 Respiratory Rate 18 Blood Pressure 118/80 Blood Pressure Mean 92 Pulse Ox 96 Oxygen Delivery Method Room Air Physical Exam Const Vital Signs: 11/28/23 14:20 11/28/23 16:23 11/28/23 19:35 Temperature 99.0 F 98.5 F Temperature Source Temporal Oral Pulse Rate 110 H 97 Respira (more content not included)... Normal [facility] Hematocrit Auto (Bld) [Volum e fraction]Ordered By: Reji Woods on 11-28-2023 Hematocrit (Bld) [Volume fraction] 42.1 % 40-54 [facility] Ketones Test strip Ql (U)Ord ered By: Reji Woods on 11-28-2023 Ketones Ql (U) Negative Negative [facility] Laboratory - Chemistry and C hemistry - challengeOrdered By: Reji Woods on 11-28-2023 ALP [Catalytic activity/Vol] 74 U/L 45-117 [facility] ALT [Catalytic activity/Vol] 28 U/L 16-61 [facility] CO2 [Moles/Vol] 26.0 mmol/L 21.0-32.0 [facility] Globulin (S) [Mass/Vol] 4.3 g/dL 2.2-4.2 [facility] Urea nitrogen/Creatinine [Mass ratio] 17.8 mg/mg 10-20 [facility] - Chemistry and C hemistry - challengeOrdered By: Kassy Gray on 11-28-2023 Lipase [Catalytic activity/Vol] 17 U/L 13-75 [facility] Comment on above: Please note:LIPASE r evised reference range effective 23. New Lipase methodology. Expected to produce lower values than the previous assay method. NEW Reference Range: 13 - 75 U/L Laboratory - Hematology and Cell countsOrdered By: Reji Woods on 11-28-2023 Erythrocyte distribution width (RBC) [Entitic vol] 43.0 fL 35.1-43.9 [facility] Erythrocyte distribution width (RBC) [Ratio] 13.6 % 11.6-14.6 [facility] Immature granulocytes/100 WBC (Bld) 0.800 % 0.0-0.9 [facility] Comment on above: IG% - Immature Granu locytes (promyelocytes, myelocytes and metamyelocytes) > 1% indicates that a LEFT SHIFT is Present. MCH (RBC) [Entitic mass] 28.2 pg 27.0-32.0 [facility] Nucleated RBC/100 WBC (Bld) [Ratio] 0 % 0-5 [facility] - Microbiology an d Antimicrobial susceptibilityOrdered By: Kassy Gray on 11-28-2023 SARS-CoV-2 (COVID-19) RNA MOHINI+probe Ql (Unsp spec) [facility] SARS-CoV-2 (COVID-19) RNA MOHINI+probe Ql (Unsp spec) [facility] Bacteria identified Cx Nom (Bld) No growth in 5 days. [facility] Bacteria identified Cx Nom (Bld) Streptococcus mitis [facility] Lactic Acidon 11-28-2023 Lactate [Moles/Vol] 2.0 mmol/L Normal 0.4-1.9 [facility] Comment on above: Order Comment: Urine , Random Result Comment: CRIT ICAL VALUE VERIFIED. CALLED TO PAT NEVILLE RN ER 11/28/23 1846 Myke Connors. RESULTS READ BACK BY SAME . Performed By: #### M 100.2200, L400.2010 #### [facility] [address] [place], [address] Lipaseon 11-28-2023 Lipase [Catalytic activity/Vol] 17 U/L Normal 13-75 [facility] Comment on above: Result Comment: Nessa hein note: LIPASE revised reference range effective 23. New Lipase methodology. Expected to produce lower values than the previous assay method. NEW Reference Range: 13 - 75 U/L Performed By: #### L 501.2450, L100.0100, L500.4050, L503.6005 #### [facility] [address] [place], [address] M100.678on 11-28-2023 M100.678 SARS-CoV-2 (COVID 19 ) Negative INFLUENZA A Negative INFLUENZA B Negative RSV PCR Negative Normal [facility] Comment on above: Performed By: #### M 100.2200, L400.2010 #### [facility] [address] [place], [address] MCHC Auto (RBC) [Mass/Vol]Or dered By: Reji Woods on 11-28-2023 MCHC (RBC) [Mass/Vol] 32.8 g/dL 32-36 [facility] Mucus LM Ql (Urine sed)Order ed By: Reji Woods on 11-28-2023 Mucus Ql (Urine sed) 0 SEEN /hpf [facility] Nitrite Test strip Ql (U)Ord ered By: Reji Woods on 11-28-2023 Nitrite Ql (U) Positive Negative [facility] No Panel InformationOrdered By: Reji Woods on 11-28-2023 Estimated GFR (MDRD) Amer 121 mL/min >60 [facility] Comment on above: GFR Calc Estimated GFR (MDRD) Non-Af Amer 100 mL/min >60 [facility] Comment on above: Non- GFR Calc No Panel InformationOrdered By: Kassy Gray on 11-28-2023 Bacteria Detection (PCR) Strep not Strep pneumo [facility] Platelets bldOrdered By: Armani Woods on 11-28-2023 Platelets (Bld) [#/Vol] 406 10*3/uL 150-450 [facility] Protein Test strip Ql (U)Ord ered By: Reji Woods on 11-28-2023 Protein Ql (U) 100 mg/dl Negative [facility] Serum or plasma albumin jeremiah urement (mass/volume)Ordered By: Reji Woods on 11-28-2023 Albumin [Mass/Vol] 3.3 g/dL 3.2-5.0 [facility] Serum or plasma albumin/glob ulin mass ratioOrdered By: Reji Woods on 11-28-2023 Albumin/Globulin [Mass ratio] 0.8 {ratio} 0.9-2.4 [facility] Serum or plasma calcium jeremiah urement (mass/volume)Ordered By: Reji Woods on 11-28-2023 Calcium [Mass/Vol] 8.6 mg/dL 8.5-10.1 [facility] Serum or plasma creatinine m easurement (mass/volume)Ordered By: Reji Woods on 11-28-2023 Creatinine [Mass/Vol] 0.84 mg/dL 0.70-1.30 [facility] Comment on above: The validity of the calculated GFR & GFRAA in patients over 70 years has not been determined. Clinical correlation is essential. Serum or plasma urea nitroge n measurement (mass/volume)Ordered By: Reji Woods on 11-28-2023 Urea nitrogen [Mass/Vol] 15 mg/dL 7-18 [facility] Squamous epithelial cells de tection in urine sediment by light microscopyOrdered By: Reji Woods on 11-28-2023 Epithelial cells.squamous LM Ql (Urine sed) 0-5 SEEN /hpf 0-5 [facility] Thin prep Papanicolaou smear with manual screeningOrdered By: Reji Woods on 11-28-2023 Thin prep Papanicolaou smear with manual screening 25 U/L 15-37 [facility] Thin prep Papanicolaou smear with manual screening 9 5-15 [facility] Urinalysis, Completeon 11-28 AMORPHOUS 1+ URATE Normal [facility] Comment on above: Order Comment: JUAN R RINCONOR TO SPECIFY Performed By: #### L 400.0001 ####[facility] [address] [place], [place], [id number] BACTERIA 2+ /hpf Normal None Seen [facility] Comment on above: Order Comment: JUAN R RINCONOR TO SPECIFY Performed By: #### L 400.0001 ####[facility] [address] [place], [place], [id number] EPI,SQUAMOUS 0-5 SEEN Normal 0-5 [facility] Comment on above: Order Comment: JUAN R CTOR TO SPECIFY Performed By: #### L 400.0001 ####[facility] [address] [place], [address] RBC 25-50 SEEN Normal 0-5 [facility] Comment on above: Order Comment: JUAN R CTOR TO SPECIFY Performed By: #### L 400.0001 ####[facility] [address] [place], [address] WBC >100 SEEN Normal 0-5 [facility] Comment on above: Order Comment: JUAN R CTOR TO SPECIFY Performed By: #### L 400.0001 ####[facility] [address] [place], [address] Mucus Ql (Urine sed) 0 SEEN Normal [facility] Comment on above: Order Comment: JUAN R CTOR TO SPECIFY Performed By: #### L 400.0001 ####[facility] [address] [place], [place], [id number] Urine blood detectionOrdered By: Reji Woods on 11-28-2023 RBC Ql (U) 150 /ul Negative [facility] RBC Ql (U) 25-50 SEEN /hpf 0-5 [facility] Urine clarityOrdered By: Armani Woods on 11-28-2023 Clarity (U) Sl. Cloudy Clear [facility] Urine color determinationOrd ered By: Reji Woods on 11-28-2023 Color (U) Yellow Yellow [facility] Urine glucose detectionOrder ed By: Reji Woods on 11-28-2023 Glucose Ql (U) Normal mg/dl Normal [facility] Urine leukocyte esterase det ection by dipstickOrdered By: Reji Woods on 11-28-2023 Leukocyte esterase Test strip Ql (U) 500 /ul Negative [facility] Urine pHOrdered By: Reji porter on 11-28-2023 pH (U) 6.5 [pH] 5.0 - 8.0 [facility] Urine sediment bacteria coun t by microscopy (number/high power field)Ordered By: Reji Woods on 11-28-2023 Bacteria LM.HPF (Urine sed) [#/Area] 2 /[HPF] None Seen [facility] Urine specific gravity measu rementOrdered By: Reji Woods on 11-28-2023 Specific gravity (U) [Rel density] 1.015 1.002-1.030 [facility] Urobilinogen Auto test strip Ql (U)Ordered By: Reji Woods on 11-28-2023 Urobilinogen Ql (U) 1 mg/dl Normal [facility] Amorphous sediment detection in urine sediment by light microscopyOrdered By: Abelardo Albarran on 11-01-2023 Amorphous sediment LM Ql (Urine sed) 1+ [facility] Basophil percentageOrdered B y: Abelardo Albarran on 11-01-2023 Basophil percentage >100 SEEN /hpf 0-5 [facility] Bilirubin Test strip Ql (U)O rdered By: Abelardo Albarran on 11-01-2023 Bilirubin Ql (U) Negative Negative [facility] Culture, urineOrdered By: Pancho Albarran on 11-01-2023 Bacteria identified Cx Nom (U) Escherichia coli [facility] Bacteria identified Cx Nom (U) Proteus mirabilis [facility] Bacteria identified Cx Nom (U) Escherichia coli [facility] Bacteria identified Cx Nom (U) Proteus mirabilis [facility] Ketones Test strip Ql (U)Ord ered By: Abelardo Albarran on 11-01-2023 Ketones Ql (U) Negative Negative [facility] Magnesium ammonium phosphate crystal detectionOrdered By: Aeblardo Albarran on 11-01-2023 Triple phosphate crystals LM Ql (Urine sed) RARE /hpf [facility] Mucus LM Ql (Urine sed)Order ed By: Abelardo Albarran on 11-01-2023 Mucus Ql (Urine sed) 0 SEEN /hpf [facility] Nitrite Test strip Ql (U)Ord ered By: Abelardo Albarran on 11-01-2023 Nitrite Ql (U) Positive Negative [facility] Protein Test strip Ql (U)Ord ered By: Abelardo Albarran on 11-01-2023 Protein Ql (U) 100 mg/dl Negative [facility] Squamous epithelial cells de tection in urine sediment by light microscopyOrdered By: Abelardo Albarran on 11-01-2023 Epithelial cells.squamous LM Ql (Urine sed) 0 SEEN /hpf 0-5 [facility] Urine blood detectionOrdered By: Abelardo Albarran on 11-01-2023 RBC Ql (U) 150 /ul Negative [facility] RBC Ql (U) 5-10 SEEN /hpf 0-5 [facility] Urine clarityOrdered By: Sridhar Albarran on 11-01-2023 Clarity (U) Cloudy Clear [facility] Urine color determinationOrd ered By: Abelardo Albarran on 11-01-2023 Color (U) Yellow Yellow [facility] Urine glucose detectionOrder ed By: Abelardo Albarran on 11-01-2023 Glucose Ql (U) Normal mg/dl Normal [facility] Urine leukocyte esterase det ection by dipstickOrdered By: Abelardo Albarran on 11-01-2023 Leukocyte esterase Test strip Ql (U) 500 /ul Negative [facility] Urine pHOrdered By: Abelardo Albarran on 11-01-2023 pH (U) 8.0 [pH] 5.0 - 8.0 [facility] Urine sediment bacteria coun t by microscopy (number/high power field)Ordered By: Abelardo Albarran on 11-01-2023 Bacteria LM.HPF (Urine sed) [#/Area] 3 /[HPF] None Seen [facility] Urine specific gravity measu rementOrdered By: Abelardo Albarran on 11-01-2023 Specific gravity (U) [Rel density] 1.015 1.002-1.030 [facility] Urobilinogen Auto test strip Ql (U)Ordered By: Abelardo Albarran on 11-01-2023 Urobilinogen Ql (U) Normal mg/dl Normal [facility] CBC W Auto Differential pane l (Bld)on 10-04-2023 Basophils (Bld) [#/Vol] 0.07 10*3/uL <0.11 k/uL [facility] Basophils/100 WBC (Bld) 1.0 % C [facility] Differential cell count method Nom (Bld) Auto [facility] Eosinophils (Bld) [#/Vol] 0.09 10*3/uL <0.46 k/uL [facility] Eosinophils/100 WBC (Bld) 1.3 % [facility] Erythrocyte distribution width (RBC) [Ratio] 13.4 % 11.5 - 15.0 % [facility] Hematocrit (Bld) [Volume fraction] 40.2 % 39.0 - 51.0 % [facility] Hemoglobin (Bld) [Mass/Vol] 13.4 g/dL 13.0 - 17.0 g/dL [facility] Immature granulocytes (Bld) [#/Vol] <0.10 k/uL [facility] Immature granulocytes/100 WBC (Bld) 0.3 % [facility] Lymphocytes (Bld) [#/Vol] 1.46 10*3/uL 1.00 - 4.00 k/uL [facility] Lymphocytes/100 WBC (Bld) 20.3 % [facility] MCH (RBC) [Entitic mass] 28.6 pg 26. 0 - 34.0 pg [facility] MCHC (RBC) [Mass/Vol] 33.3 g/dL 30.5 - 36.0 g/dL [facility] MCV (RBC) [Entitic vol] 85.9 fL 80.0 - 100.0 fL [facility] Monocytes (Bld) [#/Vol] 0.92 10*3/uL High <0.87 k/uL [facility] Monocytes/100 WBC (Bld) 12.8 % [facility] Neutrophils (Bld) [#/Vol] 4.62 10*3/uL 1.45 - 7.50 k/uL [facility] Neutrophils/100 WBC (Bld) 64.3 % [facility] Nucleated RBC (Bld) [#/Vol] <0.01 k/uL [facility] Nucleated RBC/100 WBC (Bld) [Ratio] 0.0 /100 WBC [facility] Platelet mean volume (Bld) [Entitic vol] 10.3 fL 9.0 - 12.7 fL [facility] Platelets (Bld) [#/Vol] 408 10*3/uL High 150 - 400 k/uL [facility] RBC (Bld) [#/Vol] 4.68 10*6/uL 4.20 - 6.0 0 m/uL [facility] WBC (Bld) [#/Vol] 7.18 10*3/uL 3.70 - 11.00 k/uL [facility] Absolute lymphocyte countOrd ered By: Richard Palacio on 09-22-2023 Lymphocytes Auto (Unsp spec) [#/Vol] 1.24 10*3/uL 0.83-4.51 [facility] Basophil percentageOrdered B y: Richard Palacio on 09-22-2023 Basophils/100 WBC (Bld) 0.1 % 0-1 [facility] Chloride [Moles/Vol] 98 mmol/L 98-107 [facility] Eosinophils/100 WBC (Bld) 0.9 % 0-5 [facility] Glucose [Mass/Vol] 111 mg/dL 74-106 [facility] Comment on above: Fasting Glucose resu lt from 100 to 125 mg/dL suggests IMPAIRED HOMEOSTASIS per A.D.A. criteria. Neutrophils (Bld) [#/Vol] 4.8 10*3/uL 2.0-7.7 [facility] Neutrophils/100 WBC (Bld) 69.4 % 47-70 [facility] Potassium [Moles/Vol] 3.5 mmol/L 3.5-5.1 [facility] Sodium [Moles/Vol] 129 mmol/L 136-145 [facility] WBC (Bld) [#/Vol] 6.9 10*3/uL 4.4-11.0 [facility] Blood erythrocytes count (nu mber/volume)Ordered By: Richard Palacio on 09-22-2023 RBC (Bld) [#/Vol] 3.88 10*6/uL 4.6-6.2 [facility] Blood hemoglobin measurement (mass/volume)Ordered By: Richard Palacio on 09-22-2023 Hemoglobin (Bld) [Mass/Vol] 11.4 g/dL 13.0-16.5 [facility] Blood lymphocytes/100 leukoc ytesOrdered By: Richard Palacio on 09-22-2023 Lymphocytes/100 WBC (Bld) 18.0 % 19-41 [facility] Blood monocytes/100 leukocyt esOrdered By: Richard Palacio on 09-22-2023 Monocytes/100 WBC (Bld) 11.3 % 0-10 [facility] Blood platelet mean volumeOr dered By: Richard Palacio on 09-22-2023 Platelet mean volume (Bld) [Entitic vol] 9.7 fL 6.2-12.0 [facility] Determination of erythrocyte mean corpuscular volume (MCV)Ordered By: Richard Palacio on 09-22-2023 MCV (RBC) [Entitic vol] 84.8 fL 80-94 [facility] Hematocrit Auto (Bld) [Volum e fraction]Ordered By: Richard Palacio on 09-22-2023 Hematocrit (Bld) [Volume fraction] 32.9 % 40-54 [facility] - Chemistry and C hemistry - challengeOrdered By: Richard Palacio on 09-22-2023 CO2 [Moles/Vol] 24.0 mmol/L 21.0-32.0 [facility] Urea nitrogen/Creatinine [Mass ratio] 10.4 mg/mg 10-20 [facility] - Hematology and Cell countsOrdered By: Richard Palacio on 09-22-2023 Erythrocyte distribution width (RBC) [Entitic vol] 40.9 fL 35.1-43.9 [facility] Erythrocyte distribution width (RBC) [Ratio] 13.2 % 11.6-14.6 [facility] Immature granulocytes/100 WBC (Bld) 0.300 % 0.0-0.9 [facility] Comment on above: IG% - Immature Granu locytes (promyelocytes, myelocytes and metamyelocytes) > 1% indicates that a LEFT SHIFT is Present. MCH (RBC) [Entitic mass] 29.4 pg 27.0-32.0 [facility] Nucleated RBC/100 WBC (Bld) [Ratio] 0 % 0-5 [facility] MCHC Auto (RBC) [Mass/Vol]Or dered By: Richard Palacio on 09-22-2023 MCHC (RBC) [Mass/Vol] 34.7 g/dL 32-36 [facility] No Panel InformationOrdered By: Richard Palacio on 09-22-2023 Estimated Creatinine Clearance Calc 118.30 ml/min [facility] Estimated GFR (MDRD) Amer 233 mL/min >60 [facility] Comment on above: GFR Calc Estimated GFR (MDRD) Non-Af Amer 192 mL/min >60 [facility] Comment on above: Non- GFR Calc Platelets bldOrdered By: Kel Palacio on 09-22-2023 Platelets (Bld) [#/Vol] 327 10*3/uL 150-450 [facility] Serum or plasma calcium jeremiah urement (mass/volume)Ordered By: Richard Palacio on 09-22-2023 Calcium [Mass/Vol] 6.6 mg/dL 8.5-10.1 [facility] Serum or plasma creatinine m easurement (mass/volume)Ordered By: Richard Palacio on 09-22-2023 Creatinine [Mass/Vol] 0.48 mg/dL 0.70-1.30 [facility] Comment on above: The validity of the calculated GFR & GFRAA in patients over 70 years has not been determined. Clinical correlation is essential. Serum or plasma urea nitroge n measurement (mass/volume)Ordered By: Richard Palacio on 09-22-2023 Urea nitrogen [Mass/Vol] 5 mg/dL 7-18 [facility] Thin prep Papanicolaou smear with manual screeningOrdered By: Richard Palacio on 09-22-2023 Thin prep Papanicolaou smear with manual screening 7 5-15 [facility] Blood manual differential co mment interpretation (narrative result)Ordered By: Gavino Burden on 09-21-2023 Manual differential comment Vasu (Bld) [Interp] SCANNED [facility] Review by pathologistOrdered By: Gavino Burden on 09-21-2023 Pathologist review Vasu (Unsp spec) [Interp] Reviewed [facility] Comment on above: Previous reported re sult: Lissett velazco Edited by: UZIEL on 09/22/23:925Neutrophilic leukocytosis.Clinical correlation necessary.Rony Simons M.D. 09/22/23 AMENDED REPORT 09/22/23925 PATH REV previously reported as: Lissett velazco Absolute lymphocyte countOrd ered By: Bennett Olivarez on 09-20-2023 Lymphocytes Auto (Unsp spec) [#/Vol] 1.14 10*3/uL 0.83-4.51 [facility] Basophil percentageOrdered B y: Bennett Olivarez on 09-20-2023 Basophil percentage 25-50 SEEN /hpf 0-5 [facility] Basophils/100 WBC (Bld) 0.2 % 0-1 [facility] Bilirubin [Mass/Vol] 0.50 mg/dL 0.20-1.00 [facility] Comment on above: For patients on eltr ombopag therapy, use of Dimension [place] TBIL is not recommended. Chloride [Moles/Vol] 90 mmol/L 98-107 [facility] Eosinophils/100 WBC (Bld) 0.4 % 0-5 [facility] Glucose [Mass/Vol] 120 mg/dL 74-106 [facility] Comment on above: Fasting Glucose resu lt from 100 to 125 mg/dL suggests IMPAIRED HOMEOSTASIS per A.D.A. criteria. Lactate [Moles/Vol] 0.9 mmol/L 0.4-2.0 [facility] Neutrophils (Bld) [#/Vol] 15.6 10*3/uL 2.0-7.7 [facility] Neutrophils/100 WBC (Bld) 80.2 % 47-70 [facility] Potassium [Moles/Vol] 3.6 mmol/L 3.5-5.1 [facility] Protein [Mass/Vol] 7.0 g/dL 6.4-8.2 [facility] Sodium [Moles/Vol] 124 mmol/L 136-145 [facility] WBC (Bld) [#/Vol] 19.4 10*3/uL 4.4-11.0 [facility] Bilirubin Test strip Ql (U)O rdered By: Bennett Olivarez on 09-20-2023 Bilirubin Ql (U) Negative Negative [facility] Blood erythrocytes count (nu mber/volume)Ordered By: Bennett Olivarez on 09-20-2023 RBC (Bld) [#/Vol] 4.35 10*6/uL 4.6-6.2 [facility] Blood hemoglobin measurement (mass/volume)Ordered By: Bennett Olivarez on 09-20-2023 Hemoglobin (Bld) [Mass/Vol] 12.3 g/dL 13.0-16.5 [facility] Blood lymphocytes/100 leukoc ytesOrdered By: Bennett Olivarez on 09-20-2023 Lymphocytes/100 WBC (Bld) 5.9 % 19-41 [facility] Blood manual differential co mment interpretation (narrative result)Ordered By: Bennett Olivarez on 09-20-2023 Manual differential comment Vasu (Bld) [Interp] SCANNED [facility] Comment on above: MONOCYTOSIS NOTED Blood monocytes/100 leukocyt esOrdered By: Bennett Olivarez on 09-20-2023 Monocytes/100 WBC (Bld) 12.8 % 0-10 [facility] Blood platelet mean volumeOr dered By: Bennett Olivarez on 09-20-2023 Platelet mean volume (Bld) [Entitic vol] 9.7 fL 6.2-12.0 [facility] Culture, urineOrdered By: Leo Olivarez on 09-20-2023 Bacteria identified Cx Nom (U) Escherichia coli [facility] Bacteria identified Cx Nom (U) Proteus mirabilis [facility] Determination of erythrocyte mean corpuscular volume (MCV)Ordered By: Bennett Olivarez on 09-20-2023 MCV (RBC) [Entitic vol] 84.6 fL 80-94 [facility] Hematocrit Auto (Bld) [Volum e fraction]Ordered By: Bennett Olivarez on 09-20-2023 Hematocrit (Bld) [Volume fraction] 36.8 % 40-54 [facility] INR in Blood by Coagulation assayOrdered By: Bennett Olivarez on 09-20-2023 INR Coag (Bld) [Relative time] 1.1 {INR} [facility] Ketones Test strip Ql (U)Ord ered By: Bennett Olivarez on 09-20-2023 Ketones Ql (U) 15 mg/dl Negative [facility] Laboratory - Chemistry and C hemistry - challengeOrdered By: Bennett Olivarez on 09-20-2023 ALP [Catalytic activity/Vol] 62 U/L 45-117 [facility] ALT [Catalytic activity/Vol] 16 U/L 16-61 [facility] CO2 [Moles/Vol] 27.0 mmol/L 21.0-32.0 [facility] Globulin (S) [Mass/Vol] 4.0 g/dL 2.2-4.2 [facility] Urea nitrogen/Creatinine [Mass ratio] 17.6 mg/mg 10-20 [facility] Laboratory - CoagulationOrde red By: Bennett Olivarez on 09-20-2023 aPTT Coag (Bld) [Time] 32.9 s 24.1-36.2 [facility] PT Coag (PPP) [Time] 14.5 s 11.7-14.9 [facility] Laboratory - Hematology and Cell countsOrdered By: Bennett Olivarez on 09-20-2023 Erythrocyte distribution width (RBC) [Entitic vol] 39.8 fL 35.1-43.9 [facility] Erythrocyte distribution width (RBC) [Ratio] 12.9 % 11.6-14.6 [facility] Immature granulocytes/100 WBC (Bld) 0.500 % 0.0-0.9 [facility] Comment on above: IG% - Immature Granu locytes (promyelocytes, myelocytes and metamyelocytes) > 1% indicates that a LEFT SHIFT is Present. MCH (RBC) [Entitic mass] 28.3 pg 27.0-32.0 [facility] Nucleated RBC/100 WBC (Bld) [Ratio] 0 % 0-5 [facility] Laboratory - Microbiology an d Antimicrobial susceptibilityOrdered By: Bennett Olivarez on 09-20-2023 Bacteria identified Cx Nom (Bld) No growth in 5 days. [facility] MCHC Auto (RBC) [Mass/Vol]Or dered By: Bennett Olivarez on 09-20-2023 MCHC (RBC) [Mass/Vol] 33.4 g/dL 32-36 [facility] Mucus LM Ql (Urine sed)Order ed By: Bennett Olivarez on 09-20-2023 Mucus Ql (Urine sed) 0 SEEN /hpf [facility] Nitrite Test strip Ql (U)Ord ered By: Bennett Olivarze on 09-20-2023 Nitrite Ql (U) Positive Negative [facility] No Panel InformationOrdered By: Bennett Olivarez on 09-20-2023 Estimated GFR (MDRD) Amer 155 mL/min >60 [facility] Comment on above: GFR Calc Estimated GFR (MDRD) Non-Af Amer 128 mL/min >60 [facility] Comment on above: Non- GFR Calc Platelets bldOrdered By: Mirta Olivarez on 09-20-2023 Platelets (Bld) [#/Vol] 366 10*3/uL 150-450 [facility] Protein Test strip Ql (U)Ord ered By: Bennett Olivarez on 09-20-2023 Protein Ql (U) 100 mg/dl Negative [facility] Review by pathologistOrdered By: Benntet Olivarez on 09-20-2023 Pathologist review Vasu (Unsp spec) [Interp] May foll [facility] SARS-CoV-2 (COVID-19) Ag IA. rapid Ql (Resp)Ordered By: Bennett Olivarez on 09-20-2023 SARS-CoV-2 Antigen (Rapid) SARS-CoV-2 (COVID 19) [facility] Serum or plasma albumin jeremiah urement (mass/volume)Ordered By: Bennett Olivarez on 09-20-2023 Albumin [Mass/Vol] 3.0 g/dL 3.2-5.0 [facility] Serum or plasma albumin/glob ulin mass ratioOrdered By: Bennett Olivarez on 09-20-2023 Albumin/Globulin [Mass ratio] 0.8 {ratio} 0.9-2.4 [facility] Serum or plasma calcium jeremiah urement (mass/volume)Ordered By: Bennett Olivarez on 09-20-2023 Calcium [Mass/Vol] 8.3 mg/dL 8.5-10.1 [facility] Serum or plasma creatinine m easurement (mass/volume)Ordered By: Bennett Olivarez on 09-20-2023 Creatinine [Mass/Vol] 0.68 mg/dL 0.70-1.30 [facility] Comment on above: The validity of the calculated GFR & GFRAA in patients over 70 years has not been determined. Clinical correlation is essential. Serum or plasma urea nitroge n measurement (mass/volume)Ordered By: Bennett Olivarez on 09-20-2023 Urea nitrogen [Mass/Vol] 12 mg/dL 7-18 [facility] Squamous epithelial cells de tection in urine sediment by light microscopyOrdered By: Bennett Olivarez on 09-20-2023 Epithelial cells.squamous LM Ql (Urine sed) 0 SEEN /hpf 0-5 [facility] Thin prep Papanicolaou smear with manual screeningOrdered By: Bennett Olivarez on 09-20-2023 Thin prep Papanicolaou smear with manual screening 11 U/L 15-37 [facility] Thin prep Papanicolaou smear with manual screening 7 5-15 [facility] Urine blood detectionOrdered By: Bennett Olivarez on 09-20-2023 RBC Ql (U) 50 /ul Negative [facility] RBC Ql (U) 10-25 SEEN /hpf 0-5 [facility] Urine clarityOrdered By: Mirta Olivarez on 09-20-2023 Clarity (U) Cloudy Clear [facility] Urine color determinationOrd ered By: Bennett Olivarez on 09-20-2023 Color (U) Yellow Yellow [facility] Urine glucose detectionOrder ed By: Bennett Olivarez on 09-20-2023 Glucose Ql (U) Normal mg/dl Normal [facility] Urine leukocyte esterase det ection by dipstickOrdered By: Bennett Olivarez on 09-20-2023 Leukocyte esterase Test strip Ql (U) 500 /ul Negative [facility] Urine pHOrdered By: Bennett Olivarez on 09-20-2023 pH (U) 7.0 [pH] 5.0 - 8.0 [facility] Urine sediment bacteria coun t by microscopy (number/high power field)Ordered By: Bennett Olivarez on 09-20-2023 Bacteria LM.HPF (Urine sed) [#/Area] 2 /[HPF] None Seen [facility] Urine specific gravity measu rementOrdered By: Bennett Olivarez on 09-20-2023 Specific gravity (U) [Rel density] 1.010 1.002-1.030 [facility] Urobilinogen Auto test strip Ql (U)Ordered By: Bennett Olivarez on 09-20-2023 Urobilinogen Ql (U) Normal mg/dl Normal [facility] Absolute lymphocyte countOrd ered By: Richard Palacio on 08-14-2023 Lymphocytes Auto (Unsp spec) [#/Vol] 1.92 10*3/uL 0.83-4.51 [facility] Basophil percentageOrdered B y: Richard Palacio on 08-14-2023 Basophils/100 WBC (Bld) 0.6 % 0-1 [facility] Chloride [Moles/Vol] 106 mmol/L 98-107 [facility] Eosinophils/100 WBC (Bld) 4.0 % 0-5 [facility] Glucose [Mass/Vol] 108 mg/dL 74-106 [facility] Comment on above: Fasting Glucose resu lt from 100 to 125 mg/dL suggests IMPAIRED HOMEOSTASIS per A.D.A. criteria. Neutrophils (Bld) [#/Vol] 3.6 10*3/uL 2.0-7.7 [facility] Neutrophils/100 WBC (Bld) 53.0 % 47-70 [facility] Potassium [Moles/Vol] 3.0 mmol/L 3.5-5.1 [facility] Sodium [Moles/Vol] 136 mmol/L 136-145 [facility] WBC (Bld) [#/Vol] 6.7 10*3/uL 4.4-11.0 [facility] Blood erythrocytes count (nu mber/volume)Ordered By: Rihcard Palacio on 08-14-2023 RBC (Bld) [#/Vol] 3.89 10*6/uL 4.6-6.2 [facility] Blood hemoglobin measurement (mass/volume)Ordered By: Richard Palacio on 08-14-2023 Hemoglobin (Bld) [Mass/Vol] 11.3 g/dL 13.0-16.5 [facility] Blood lymphocytes/100 leukoc ytesOrdered By: Richard Palacio on 08-14-2023 Lymphocytes/100 WBC (Bld) 28.6 % 19-41 [facility] Blood monocytes/100 leukocyt esOrdered By: Richard Palacio on 08-14-2023 Monocytes/100 WBC (Bld) 13.7 % 0-10 [facility] Blood platelet mean volumeOr dered By: Richard Palacio on 08-14-2023 Platelet mean volume (Bld) [Entitic vol] 9.5 fL 6.2-12.0 [facility] Determination of erythrocyte mean corpuscular volume (MCV)Ordered By: Richard Palacio on 08-14-2023 MCV (RBC) [Entitic vol] 87.9 fL 80-94 [facility] Glucose Glucometer (BldC) [M ass/Vol]Ordered By: Richard Palacio on 08-14-2023 Glucose [Mass/Vol] 96 mg/dL 74-106 [facility] Comment on above: MANAGEMENT OF PATIEN T CARE PER NURSING PROTOCOL Hematocrit Auto (Bld) [Volum e fraction]Ordered By: Richard Palacio on 08-14-2023 Hematocrit (Bld) [Volume fraction] 34.2 % 40-54 [facility] Laboratory - Chemistry and C hemistry - challengeOrdered By: Richard Palacio on 08-14-2023 CO2 [Moles/Vol] 23.0 mmol/L 21.0-32.0 [facility] Urea nitrogen/Creatinine [Mass ratio] 6.5 mg/mg 10-20 [facility] Laboratory - Hematology and Cell countsOrdered By: Richard Palacio on 08-14-2023 Erythrocyte distribution width (RBC) [Entitic vol] 41.4 fL 35.1-43.9 [facility] Erythrocyte distribution width (RBC) [Ratio] 12.8 % 11.6-14.6 [facility] Immature granulocytes/100 WBC (Bld) 0.100 % 0.0-0.9 [facility] Comment on above: IG% - Immature Granu locytes (promyelocytes, myelocytes and metamyelocytes) > 1% indicates that a LEFT SHIFT is Present. MCH (RBC) [Entitic mass] 29.0 pg 27.0-32.0 [facility] Nucleated RBC/100 WBC (Bld) [Ratio] 0 % 0-5 [facility] MCHC Auto (RBC) [Mass/Vol]Or dered By: Richard Palacio on 08-14-2023 MCHC (RBC) [Mass/Vol] 33.0 g/dL 32-36 [facility] No Panel InformationOrdered By: Richard Palacio on 08-14-2023 Estimated Creatinine Clearance Calc 145.51 ml/min [facility] Estimated GFR (MDRD) Amer 241 mL/min >60 [facility] Comment on above: GFR Calc Estimated GFR (MDRD) Non-Af Amer 199 mL/min >60 [facility] Comment on above: Non- GFR Calc Platelets bldOrdered By: Kel Palacio on 08-14-2023 Platelets (Bld) [#/Vol] 378 10*3/uL 150-450 [facility] Serum or plasma calcium jeremiah urement (mass/volume)Ordered By: Richard Palacio on 08-14-2023 Calcium [Mass/Vol] 8.0 mg/dL 8.5-10.1 [facility] Serum or plasma creatinine m easurement (mass/volume)Ordered By: Richard Palacio on 08-14-2023 Creatinine [Mass/Vol] 0.46 mg/dL 0.70-1.30 [facility] Comment on above: The validity of the calculated GFR & GFRAA in patients over 70 years has not been determined. Clinical correlation is essential. Serum or plasma urea nitroge n measurement (mass/volume)Ordered By: Richard Palacio on 08-14-2023 Urea nitrogen [Mass/Vol] 3 mg/dL 7-18 [facility] Thin prep Papanicolaou smear with manual screeningOrdered By: Richard Palacio on 08-14-2023 Thin prep Papanicolaou smear with manual screening 7 5-15 [facility] Basophil percentageOrdered B y: Richard Palacio on 08-13-2023 Bilirubin [Mass/Vol] 0.70 mg/dL 0.20-1.00 [facility] Comment on above: For patients on eltr ombopag therapy, use of Dimension [place] TBIL is not recommended. Protein [Mass/Vol] 6.4 g/dL 6.4-8.2 [facility] Laboratory - Chemistry and C hemistry - challengeOrdered By: Richard Palacio on 08-13-2023 ALP [Catalytic activity/Vol] 58 U/L 45-117 [facility] ALT [Catalytic activity/Vol] 13 U/L 16-61 [facility] Globulin (S) [Mass/Vol] 3.7 g/dL 2.2-4.2 [facility] Serum or plasma albumin jeremiah urement (mass/volume)Ordered By: Richard Palacio on 08-13-2023 Albumin [Mass/Vol] 2.7 g/dL 3.2-5.0 [facility] Serum or plasma albumin/glob ulin mass ratioOrdered By: Richard Palacio on 08-13-2023 Albumin/Globulin [Mass ratio] 0.7 {ratio} 0.9-2.4 [facility] Thin prep Papanicolaou smear with manual screeningOrdered By: Richard Palacio on 08-13-2023 Thin prep Papanicolaou smear with manual screening 8 U/L 15-37 [facility] Blood manual differential co mment interpretation (narrative result)Ordered By: Richard Palacio on 08-12-2023 Manual differential comment Vasu (Bld) [Interp] SCANNED [facility] Review by pathologistOrdered By: Richard Palacio on 08-12-2023 Pathologist review Vasu (Unsp spec) [Interp] Reviewed [facility] Comment on above: Previous reported re sult: Lissett velazco Edited by: RGOOD on 08/12/23:1220Neutrophilic leukocytosis.Clinical correlation necessary.Rony Simons M.D. 08/12/23 AMENDED REPORT 08/12/23 1220 PATH REV previously reported as: [facility] Laboratory - Chemistry and C hemistry - challengeOrdered By: Richard Palacio on 08-11-2023 Magnesium [Mass/Vol] 2.1 mg/dL 1.6-2.6 [facility] Absolute lymphocyte countOrd ered By: Abdirahman Jones on 08-09-2023 Lymphocytes Auto (Unsp spec) [#/Vol] 1.15 10*3/uL 0.83-4.51 [facility] Basophil percentageOrdered B y: Abdirahman Jones on 08-09-2023 Basophils/100 WBC (Bld) 0.3 % 0-1 [facility] Bilirubin [Mass/Vol] 0.50 mg/dL 0.20-1.00 [facility] Comment on above: For patients on eltr ombopag therapy, use of Dimension [place] TBIL is not recommended. Chloride [Moles/Vol] 92 mmol/L 98-107 [facility] Eosinophils/100 WBC (Bld) 0.1 % 0-5 [facility] Glucose [Mass/Vol] 168 mg/dL 74-106 [facility] Comment on above: Fasting Glucose resu lt greater than or equal to 126 mg/dL suggests DIABETES MELLITUS per A.D.A. criteria. Lactate [Moles/Vol] 1.0 mmol/L 0.4-2.0 [facility] Neutrophils (Bld) [#/Vol] 13.0 10*3/uL 2.0-7.7 [facility] Neutrophils/100 WBC (Bld) 84.5 % 47-70 [facility] Potassium [Moles/Vol] 4.1 mmol/L 3.5-5.1 [facility] Comment on above: Slight Hemolysis, Re sult may be falsely increased. Protein [Mass/Vol] 8.3 g/dL 6.4-8.2 [facility] Sodium [Moles/Vol] 127 mmol/L 136-145 [facility] WBC (Bld) [#/Vol] 15.4 10*3/uL 4.4-11.0 [facility] Blood erythrocytes count (nu mber/volume)Ordered By: Abdirahman Jones on 08-09-2023 RBC (Bld) [#/Vol] 5.28 10*6/uL 4.6-6.2 [facility] Blood hemoglobin measurement (mass/volume)Ordered By: Abdirahman Jones on 08-09-2023 Hemoglobin (Bld) [Mass/Vol] 15.8 g/dL 13.0-16.5 [facility] Blood lymphocytes/100 leukoc ytesOrdered By: Abdirahman Jones on 08-09-2023 Lymphocytes/100 WBC (Bld) 7.5 % 19-41 [facility] Blood monocytes/100 leukocyt esOrdered By: Abdirahman Jones on 08-09-2023 Monocytes/100 WBC (Bld) 7.2 % 0-10 [facility] Blood platelet mean volumeOr dered By: Abdirahman Jones on 08-09-2023 Platelet mean volume (Bld) [Entitic vol] 9.5 fL 6.2-12.0 [facility] Determination of erythrocyte mean corpuscular volume (MCV)Ordered By: Abdirahman Jones on 08-09-2023 MCV (RBC) [Entitic vol] 86.2 fL 80-94 [facility] Direct bilirubinOrdered By: Abdirahman Jones on 08-09-2023 Bilirubin.direct [Mass/Vol] 0.16 mg/dL 0.00-0.30 [facility] Hematocrit Auto (Bld) [Volum e fraction]Ordered By: Abdirahman Jones on 08-09-2023 Hematocrit (Bld) [Volume fraction] 45.5 % 40-54 [facility] Laboratory - Chemistry and C hemistry - challengeOrdered By: Abdirahman Jones on 08-09-2023 ALP [Catalytic activity/Vol] 84 U/L 45-117 [facility] ALT [Catalytic activity/Vol] 19 U/L 16-61 [facility] CO2 [Moles/Vol] 27.0 mmol/L 21.0-32.0 [facility] Globulin (S) [Mass/Vol] 4.7 g/dL 2.2-4.2 [facility] Lipase [Catalytic activity/Vol] 22 U/L 13-75 [facility] Comment on above: Please note:LIPASE r evised reference range effective 23. New Lipase methodology. Expected to produce lower values than the previous assay method. NEW Reference Range: 13 - 75 U/L Urea nitrogen/Creatinine [Mass ratio] 16.9 mg/mg 10-20 [facility] Laboratory - Hematology and Cell countsOrdered By: Abdirahman Jones on 08-09-2023 Erythrocyte distribution width (RBC) [Entitic vol] 39.1 fL 35.1-43.9 [facility] Erythrocyte distribution width (RBC) [Ratio] 12.5 % 11.6-14.6 [facility] Immature granulocytes/100 WBC (Bld) 0.400 % 0.0-0.9 [facility] Comment on above: IG% - Immature Granu locytes (promyelocytes, myelocytes and metamyelocytes) > 1% indicates that a LEFT SHIFT is Present. MCH (RBC) [Entitic mass] 29.9 pg 27.0-32.0 [facility] Nucleated RBC/100 WBC (Bld) [Ratio] 0 % 0-5 [facility] MCHC Auto (RBC) [Mass/Vol]Or dered By: Abdirahman Jones on 08-09-2023 MCHC (RBC) [Mass/Vol] 34.7 g/dL 32-36 [facility] No Panel InformationOrdered By: Abdirahman Jones on 08-09-2023 Estimated Creatinine Clearance Calc 75.21 ml/min [facility] Estimated GFR (MDRD) Amer 114 mL/min >60 [facility] Comment on above: GFR Calc Estimated GFR (MDRD) Non-Af Amer 94 mL/min >60 [facility] Comment on above: Non- GFR Calc Platelets bldOrdered By: Toribio Jones on 08-09-2023 Platelets (Bld) [#/Vol] 522 10*3/uL 150-450 [facility] Serum or plasma albumin jeremiah urement (mass/volume)Ordered By: Abdirahman Jones on 08-09-2023 Albumin [Mass/Vol] 3.6 g/dL 3.2-5.0 [facility] Serum or plasma calcium jeremiah urement (mass/volume)Ordered By: Abdirahman Jones on 08-09-2023 Calcium [Mass/Vol] 9.2 mg/dL 8.5-10.1 [facility] Serum or plasma creatinine m easurement (mass/volume)Ordered By: Abdirahman Jones on 08-09-2023 Creatinine [Mass/Vol] 0.89 mg/dL 0.70-1.30 [facility] Comment on above: The validity of the calculated GFR & GFRAA in patients over 70 years has not been determined. Clinical correlation is essential. Serum or plasma urea nitroge n measurement (mass/volume)Ordered By: Abdirahman Jones on 08-09-2023 Urea nitrogen [Mass/Vol] 15 mg/dL 7-18 [facility] Thin prep Papanicolaou smear with manual screeningOrdered By: Abdirahman Jones on 08-09-2023 Thin prep Papanicolaou smear with manual screening 15 U/L 15-37 [facility] Comment on above: Slight Hemolysis, Re sult may be falsely increased. Thin prep Papanicolaou smear with manual screening 8 5-15 [facility] CBC W Auto Differential pane l (Bld)on 08-04-2023 Basophils (Bld) [#/Vol] 0.05 10*3/uL <0.11 k/uL [facility] Basophils/100 WBC (Bld) 0.7 % C [facility] Differential cell count method Nom (Bld) Auto [facility] Eosinophils (Bld) [#/Vol] 0.15 10*3/uL <0.46 k/uL [facility] Eosinophils/100 WBC (Bld) 2.1 % [facility] Erythrocyte distribution width (RBC) [Ratio] 12.5 % 11.5 - 15.0 % [facility] Hematocrit (Bld) [Volume fraction] 41.4 % 39.0 - 51.0 % [facility] Hemoglobin (Bld) [Mass/Vol] 13.6 g/dL 13.0 - 17.0 g/dL [facility] Immature granulocytes (Bld) [#/Vol] 0.03 10*3/uL <0.10 k/uL [facility] Immature granulocytes/100 WBC (Bld) 0.4 % [facility] Lymphocytes (Bld) [#/Vol] 2.29 10*3/uL 1.00 - 4.00 k/uL [facility] Lymphocytes/100 WBC (Bld) 31.9 % [facility] MCH (RBC) [Entitic mass] 28.9 pg 26. 0 - 34.0 pg [facility] MCHC (RBC) [Mass/Vol] 32.9 g/dL 30.5 - 36.0 g/dL [facility] MCV (RBC) [Entitic vol] 88.1 fL 80.0 - 100.0 fL [facility] Monocytes (Bld) [#/Vol] 0.92 10*3/uL High <0.87 k/uL [facility] Monocytes/100 WBC (Bld) 12.8 % C [facility] Neutrophils (Bld) [#/Vol] 3.74 10*3/uL 1.45 - 7.50 k/uL [facility] Neutrophils/100 WBC (Bld) 52.1 % [facility] Nucleated RBC (Bld) [#/Vol] <0.01 k/uL [facility] Nucleated RBC/100 WBC (Bld) [Ratio] 0.0 /100 WBC [facility] Platelet mean volume (Bld) [Entitic vol] 10.7 fL 9.0 - 12.7 fL [facility] Platelets (Bld) [#/Vol] 325 10*3/uL 150 - 400 k/uL [facility] RBC (Bld) [#/Vol] 4.70 10*6/uL 4.20 - 6.0 0 m/uL [facility] WBC (Bld) [#/Vol] 7.18 10*3/uL 3.70 - 11.00 k/uL [facility] Basophil percentageOrdered B y: Richard Palacio on 05-16-2023 Chloride [Moles/Vol] 104 mmol/L 98-107 [facility] Glucose [Mass/Vol] 104 mg/dL 74-106 [facility] Comment on above: Fasting Glucose resu lt from 100 to 125 mg/dL suggests IMPAIRED HOMEOSTASIS per A.D.A. criteria. Potassium [Moles/Vol] 3.8 mmol/L 3.5-5.1 [facility] Sodium [Moles/Vol] 135 mmol/L 136-145 [facility] Laboratory - Chemistry and C hemistry - challengeOrdered By: Richard Palacio on 05-16-2023 CO2 [Moles/Vol] 26.0 mmol/L 21.0-32.0 [facility] Urea nitrogen/Creatinine [Mass ratio] 2.3 mg/mg 10-20 [facility] No Panel InformationOrdered By: Richard Palacio on 05-16-2023 Estimated Creatinine Clearance Calc 150.91 ml/min [facility] Estimated GFR (MDRD) Amer 258 mL/min >60 [facility] Comment on above: GFR Calc Estimated GFR (MDRD) Non-Af Amer 213 mL/min >60 [facility] Comment on above: Non- GFR Calc Serum or plasma calcium jeremiah urement (mass/volume)Ordered By: Richard Palacio on 05-16-2023 Calcium [Mass/Vol] 8.0 mg/dL 8.5-10.1 [facility] Serum or plasma creatinine m easurement (mass/volume)Ordered By: Richard Palacio on 05-16-2023 Creatinine [Mass/Vol] 0.44 mg/dL 0.70-1.30 [facility] Comment on above: The validity of the calculated GFR & GFRAA in patients over 70 years has not been determined. Clinical correlation is essential. Serum or plasma urea nitroge n measurement (mass/volume)Ordered By: Richard Palacio on 05-16-2023 Urea nitrogen [Mass/Vol] 1 mg/dL 7-18 [facility] Thin prep Papanicolaou smear with manual screeningOrdered By: Richard Palacio on 05-16-2023 Thin prep Papanicolaou smear with manual screening 5 5-15 [facility] Absolute lymphocyte countOrd ered By: Richard Palacio on 05-14-2023 Lymphocytes Auto (Unsp spec) [#/Vol] 1.80 10*3/uL 0.83-4.51 [facility] Basophil percentageOrdered B y: Richard Palacio on 05-14-2023 Basophils/100 WBC (Bld) 0.3 % 0-1 [facility] Eosinophils/100 WBC (Bld) 1.5 % 0-5 [facility] Neutrophils (Bld) [#/Vol] 7.6 10*3/uL 2.0-7.7 [facility] Neutrophils/100 WBC (Bld) 69.3 % 47-70 [facility] WBC (Bld) [#/Vol] 10.9 10*3/uL 4.4-11.0 [facility] Blood erythrocytes count (nu mber/volume)Ordered By: Richard Palacio on 05-14-2023 RBC (Bld) [#/Vol] 3.85 10*6/uL 4.6-6.2 [facility] Blood hemoglobin measurement (mass/volume)Ordered By: Richard Palacio on 05-14-2023 Hemoglobin (Bld) [Mass/Vol] 11.5 g/dL 13.0-16.5 [facility] Blood lymphocytes/100 leukoc ytesOrdered By: Richard Palacio on 05-14-2023 Lymphocytes/100 WBC (Bld) 16.5 % 19-41 [facility] Blood monocytes/100 leukocyt esOrdered By: Richard Palacio on 05-14-2023 Monocytes/100 WBC (Bld) 12.0 % 0-10 [facility] Blood platelet mean volumeOr dered By: Richard Palacio on 05-14-2023 Platelet mean volume (Bld) [Entitic vol] 11.0 fL 6.2-12.0 [facility] Determination of erythrocyte mean corpuscular volume (MCV)Ordered By: Richard Palacio on 05-14-2023 MCV (RBC) [Entitic vol] 89.6 fL 80-94 [facility] Hematocrit Auto (Bld) [Volum e fraction]Ordered By: Richard Palacio on 05-14-2023 Hematocrit (Bld) [Volume fraction] 34.5 % 40-54 [facility] Laboratory - Hematology and Cell countsOrdered By: Richard Palacio on 05-14-2023 Erythrocyte distribution width (RBC) [Entitic vol] 39.9 fL 35.1-43.9 [facility] Erythrocyte distribution width (RBC) [Ratio] 12.2 % 11.6-14.6 [facility] Immature granulocytes/100 WBC (Bld) 0.400 % 0.0-0.9 [facility] Comment on above: IG% - Immature Granu locytes (promyelocytes, myelocytes and metamyelocytes) > 1% indicates that a LEFT SHIFT is Present. MCH (RBC) [Entitic mass] 29.9 pg 27.0-32.0 [facility] Nucleated RBC/100 WBC (Bld) [Ratio] 0 % 0-5 [facility] MCHC Auto (RBC) [Mass/Vol]Or dered By: Richard Palacio on 05-14-2023 MCHC (RBC) [Mass/Vol] 33.3 g/dL 32-36 [facility] Platelets bldOrdered By: Kel Palacio on 05-14-2023 Platelets (Bld) [#/Vol] 340 10*3/uL 150-450 [facility] - Chemistry and C hemistry - challengeOrdered By: Richard Palacio on 05-11-2023 Magnesium [Mass/Vol] 2.3 mg/dL 1.6-2.6 [facility] Basophil percentageOrdered B y: Abdirahman Jones on 05-09-2023 Basophil percentage 25-50 SEEN /hpf 0-5 [facility] Bilirubin [Mass/Vol] 0.90 mg/dL 0.20-1.00 [facility] Comment on above: For patients on eltr ombopag therapy, use of Dimension [place] TBIL is not recommended. Lactate [Moles/Vol] 1.0 mmol/L 0.4-2.0 [facility] Protein [Mass/Vol] 8.0 g/dL 6.4-8.2 [facility] Bilirubin Test strip Ql (U)O rdered By: Abdirahman Jones on 05-09-2023 Bilirubin Ql (U) Negative Negative [facility] Culture, urineOrdered By: Susannah Jones on 05-09-2023 Bacteria identified Cx Nom (U) Citrobacter freundii [facility] Bacteria identified Cx Nom (U) Proteus mirabilis [facility] Direct bilirubinOrdered By: Abdirahman Jones on 05-09-2023 Bilirubin.direct [Mass/Vol] 0.20 mg/dL 0.00-0.30 [facility] Ketones Test strip Ql (U)Ord ered By: Abdirahman Jones on 05-09-2023 Ketones Ql (U) 5 mg/dl Negative [facility] Laboratory - Chemistry and C hemistry - challengeOrdered By: Abdirahman Jones on 05-09-2023 ALP [Catalytic activity/Vol] 80 U/L 45-117 [facility] ALT [Catalytic activity/Vol] 19 U/L 16-61 [facility] Globulin (S) [Mass/Vol] 4.2 g/dL 2.2-4.2 [facility] Lipase [Catalytic activity/Vol] 29 U/L 13-75 [facility] Comment on above: Please note:LIPASE r evised reference range effective 23. New Lipase methodology. Expected to produce lower values than the previous assay method. NEW Reference Range: 13 - 75 U/L Mucus LM Ql (Urine sed)Order ed By: Abdirahman Jones on 05-09-2023 Mucus Ql (Urine sed) 0 SEEN /hpf [facility] Nitrite Test strip Ql (U)Ord ered By: Abdirahman Jones on 05-09-2023 Nitrite Ql (U) Negative Negative [facility] Protein Test strip Ql (U)Ord ered By: Abdirahman Jones on 05-09-2023 Protein Ql (U) 15 mg/dl Negative [facility] Serum or plasma albumin jeremiah urement (mass/volume)Ordered By: Abdirahman Jones on 05-09-2023 Albumin [Mass/Vol] 3.8 g/dL 3.2-5.0 [facility] Squamous epithelial cells de tection in urine sediment by light microscopyOrdered By: Abdirahman Jones on 05-09-2023 Epithelial cells.squamous LM Ql (Urine sed) 0 SEEN /hpf 0-5 [facility] Thin prep Papanicolaou smear with manual screeningOrdered By: Abdirahman Jones on 05-09-2023 Thin prep Papanicolaou smear with manual screening 16 U/L 15-37 [facility] Urine blood detectionOrdered By: Abdirahman Jones on 05-09-2023 RBC Ql (U) 10 /ul Negative [facility] RBC Ql (U) 0-5 SEEN /hpf 0-5 [facility] Urine clarityOrdered By: Toribio Jones on 05-09-2023 Clarity (U) Clear Clear [facility] Urine color determinationOrd ered By: Abdirahman Jones on 05-09-2023 Color (U) Yellow Yellow [facility] Urine glucose detectionOrder ed By: Abdirahman Jones on 05-09-2023 Glucose Ql (U) Normal mg/dl Normal [facility] Urine leukocyte esterase det ection by dipstickOrdered By: Abdirahman Jones on 05-09-2023 Leukocyte esterase Test strip Ql (U) 500 /ul Negative [facility] Urine pHOrdered By: Abdirahman mcgarrys on 05-09-2023 pH (U) 7.0 [pH] 5.0 - 8.0 [facility] Urine sediment bacteria coun t by microscopy (number/high power field)Ordered By: Abdirahman Jones on 05-09-2023 Bacteria LM.HPF (Urine sed) [#/Area] 2 /[HPF] None Seen [facility] Urine specific gravity measu rementOrdered By: Abdirahman Jones on 05-09-2023 Specific gravity (U) [Rel density] 1.010 1.002-1.030 [facility] Urobilinogen Auto test strip Ql (U)Ordered By: Abdirahman Jones on 05-09-2023 Urobilinogen Ql (U) Normal mg/dl Normal [facility] Basophil percentageOrdered B y: Jian Jose on 04-02-2023 Basophil percentage 50-100 SEEN /hpf 0-5 [facility] Bilirubin Test strip Ql (U)O rdered By: Jian Jose on 04-02-2023 Bilirubin Ql (U) Negative Negative [facility] Culture, urineOrdered By: Wali Jules on 04-02-2023 Bacteria identified Cx Nom (U) Providencia rettgeri [facility] Bacteria identified Cx Nom (U) Citrobacter freundii [facility] Ketones Test strip Ql (U)Ord ered By: Jian Jose on 04-02-2023 Ketones Ql (U) 15 mg/dl Negative [facility] Magnesium ammonium phosphate crystal detectionOrdered By: Jian Jose on 04-02-2023 Triple phosphate crystals LM Ql (Urine sed) RARE /hpf [facility] Mucus LM Ql (Urine sed)Order ed By: Jian Jose on 04-02-2023 Mucus Ql (Urine sed) 0 SEEN /hpf [facility] Nitrite Test strip Ql (U)Ord ered By: Jian Jose on 04-02-2023 Nitrite Ql (U) Negative Negative [facility] Protein Test strip Ql (U)Ord ered By: Jian Jose on 04-02-2023 Protein Ql (U) 100 mg/dl Negative [facility] Squamous epithelial cells de tection in urine sediment by light microscopyOrdered By: Jian Jose on 04-02-2023 Epithelial cells.squamous LM Ql (Urine sed) 0-5 SEEN /hpf 0-5 [facility] Urine blood detectionOrdered By: Jian Jose on 04-02-2023 RBC Ql (U) 150 /ul Negative [facility] RBC Ql (U) 10-25 SEEN /hpf 0-5 [facility] Urine clarityOrdered By: Sangeeta Jose on 04-02-2023 Clarity (U) Turbid Clear [facility] Urine color determinationOrd ered By: Jian Jose on 04-02-2023 Color (U) Yellow Yellow [facility] Urine glucose detectionOrder ed By: Jian Jose on 04-02-2023 Glucose Ql (U) Normal mg/dl Normal [facility] Urine leukocyte esterase det ection by dipstickOrdered By: Jian Jose on 04-02-2023 Leukocyte esterase Test strip Ql (U) 500 /ul Negative [facility] Urine pHOrdered By: Jian bangura on 04-02-2023 pH (U) 8.0 [pH] 5.0 - 8.0 [facility] Urine sediment bacteria coun t by microscopy (number/high power field)Ordered By: Jian Jose on 04-02-2023 Bacteria LM.HPF (Urine sed) [#/Area] 4 /[HPF] None Seen [facility] Urine specific gravity measu rementOrdered By: Jian Jose on 04-02-2023 Specific gravity (U) [Rel density] 1.015 1.002-1.030 [facility] Urobilinogen Auto test strip Ql (U)Ordered By: Jian Jose on 04-02-2023 Urobilinogen Ql (U) Normal mg/dl Normal [facility] Absolute lymphocyte countOrd ered By: Jian Jose on 04-01-2023 Lymphocytes Auto (Unsp spec) [#/Vol] 1.07 10*3/uL 0.83-4.51 [facility] Basophil percentageOrdered B y: Jian Jose on 04-01-2023 Basophils/100 WBC (Bld) 0.3 % 0-1 [facility] Bilirubin [Mass/Vol] 0.90 mg/dL 0.20-1.00 [facility] Comment on above: For patients on eltr ombopag therapy, use of Dimension [place] TBIL is not recommended. Chloride [Moles/Vol] 88 mmol/L 98-107 [facility] Eosinophils/100 WBC (Bld) 0.0 % 0-5 [facility] Glucose [Mass/Vol] 159 mg/dL 74-106 [facility] Comment on above: Fasting Glucose resu lt greater than or equal to 126 mg/dL suggests DIABETES MELLITUS per A.D.A. criteria. Lactate [Moles/Vol] 1.6 mmol/L 0.4-2.0 [facility] Neutrophils (Bld) [#/Vol] 18.2 10*3/uL 2.0-7.7 [facility] Neutrophils/100 WBC (Bld) 87.0 % 47-70 [facility] Potassium [Moles/Vol] 3.7 mmol/L 3.5-5.1 [facility] Protein [Mass/Vol] 9.6 g/dL 6.4-8.2 [facility] Sodium [Moles/Vol] 124 mmol/L 136-145 [facility] WBC (Bld) [#/Vol] 20.9 10*3/uL 4.4-11.0 [facility] Blood erythrocytes count (nu mber/volume)Ordered By: Jian Jose on 05-19-2023 RBC (Bld) [#/Vol] 5.83 10*6/uL 4.6-6.2 [facility] Blood hemoglobin measurement (mass/volume)Ordered By: Jian Jose on 04-01-2023 Hemoglobin (Bld) [Mass/Vol] 17.2 g/dL 13.0-16.5 [facility] Blood lymphocytes/100 leukoc ytesOrdered By: Jian Jose on 04-01-2023 Lymphocytes/100 WBC (Bld) 5.1 % 19-41 [facility] Blood monocytes/100 leukocyt esOrdered By: Jian Jose on 04-01-2023 Monocytes/100 WBC (Bld) 7.2 % 0-10 [facility] Blood platelet mean volumeOr dered By: Jian Jose on 04-01-2023 Platelet mean volume (Bld) [Entitic vol] 10.6 fL 6.2-12.0 [facility] Determination of erythrocyte mean corpuscular volume (MCV)Ordered By: Jian Jose on 04-01-2023 MCV (RBC) [Entitic vol] 87.0 fL 80-94 [facility] Hematocrit Auto (Bld) [Volum e fraction]Ordered By: Jian Jose on 04-01-2023 Hematocrit (Bld) [Volume fraction] 50.7 % 40-54 [facility] - Chemistry and C hemistry - challengeOrdered By: Jian Jose on 04-01-2023 ALP [Catalytic activity/Vol] 93 U/L 45-117 [facility] ALT [Catalytic activity/Vol] 22 U/L 16-61 [facility] CO2 [Moles/Vol] 23.0 mmol/L 21.0-32.0 [facility] Globulin (S) [Mass/Vol] 5.0 g/dL 2.2-4.2 [facility] Lipase [Catalytic activity/Vol] 31 U/L 13-75 [facility] Comment on above: Please note:LIPASE r evised reference range effective 23. New Lipase methodology. Expected to produce lower values than the previous assay method. NEW Reference Range: 13 - 75 U/L Magnesium [Mass/Vol] 2.5 mg/dL 1.6-2.6 [facility] Urea nitrogen/Creatinine [Mass ratio] 15.4 mg/mg 10-20 [facility] - Hematology and Cell countsOrdered By: Jian Jose on 04-01-2023 Erythrocyte distribution width (RBC) [Entitic vol] 40.1 fL 35.1-43.9 [facility] Erythrocyte distribution width (RBC) [Ratio] 12.7 % 11.6-14.6 [facility] Immature granulocytes/100 WBC (Bld) 0.400 % 0.0-0.9 [facility] Comment on above: IG% - Immature Granu locytes (promyelocytes, myelocytes and metamyelocytes) > 1% indicates that a LEFT SHIFT is Present. MCH (RBC) [Entitic mass] 29.5 pg 27.0-32.0 [facility] Nucleated RBC/100 WBC (Bld) [Ratio] 0 % 0-5 [facility] MCHC Auto (RBC) [Mass/Vol]Or dered By: Jian Jose on 04-01-2023 MCHC (RBC) [Mass/Vol] 33.9 g/dL 32-36 [facility] No Panel InformationOrdered By: Jian Jose on 04-01-2023 Estimated Creatinine Clearance Calc 51.67 ml/min [facility] Estimated GFR (MDRD) Amer 74 mL/min >60 [facility] Comment on above: GFR Calc Estimated GFR (MDRD) Non-Af Amer 61 mL/min >60 [facility] Comment on above: Non- GFR Calc Platelets bldOrdered By: Sangeeta Jose on 04-01-2023 Platelets (Bld) [#/Vol] 495 10*3/uL 150-450 [facility] Serum or plasma albumin jeremiah urement (mass/volume)Ordered By: Jian Jose on 04-01-2023 Albumin [Mass/Vol] 4.6 g/dL 3.2-5.0 [facility] Serum or plasma albumin/glob ulin mass ratioOrdered By: Jian Jose on 04-01-2023 Albumin/Globulin [Mass ratio] 0.9 {ratio} 0.9-2.4 [facility] Serum or plasma calcium ejremiah urement (mass/volume)Ordered By: Jian Jose on 04-01-2023 Calcium [Mass/Vol] 10.7 mg/dL 8.5-10.1 [facility] Serum or plasma creatinine m easurement (mass/volume)Ordered By: Jian Jose on 04-01-2023 Creatinine [Mass/Vol] 1.30 mg/dL 0.70-1.30 [facility] Comment on above: The validity of the calculated GFR & GFRAA in patients over 70 years has not been determined. Clinical correlation is essential. Serum or plasma urea nitroge n measurement (mass/volume)Ordered By: Jian Jose on 04-01-2023 Urea nitrogen [Mass/Vol] 20 mg/dL 7-18 [facility] Thin prep Papanicolaou smear with manual screeningOrdered By: Jian Jose on 04-01-2023 Thin prep Papanicolaou smear with manual screening 17 U/L 15-37 [facility] Thin prep Papanicolaou smear with manual screening 13 5-15 [facility] Absolute lymphocyte countOrd ered By: Rivera Dodge on 03-30-2023 Lymphocytes Auto (Unsp spec) [#/Vol] 2.46 10*3/uL 0.83-4.51 [facility] Amorphous sediment detection in urine sediment by light microscopyOrdered By: Rivera Dodeg on 03-30-2023 Amorphous sediment LM Ql (Urine sed) 1+ PHOS [facility] Basophil percentageOrdered B y: Rivera Dodge on 03-30-2023 Basophil percentage 25-50 SEEN /hpf 0-5 [facility] Basophils/100 WBC (Bld) 0.6 % 0-1 [facility] Chloride [Moles/Vol] 96 mmol/L 98-107 [facility] Eosinophils/100 WBC (Bld) 2.3 % 0-5 [facility] Glucose [Mass/Vol] 98 mg/dL 74-106 [facility] Neutrophils (Bld) [#/Vol] 3.5 10*3/uL 2.0-7.7 [facility] Neutrophils/100 WBC (Bld) 49.5 % 47-70 [facility] Potassium [Moles/Vol] 3.6 mmol/L 3.5-5.1 [facility] Sodium [Moles/Vol] 129 mmol/L 136-145 [facility] WBC (Bld) [#/Vol] 7.0 10*3/uL 4.4-11.0 [facility] Bilirubin Test strip Ql (U)O rdered By: Rivera Dodge on 03-30-2023 Bilirubin Ql (U) Negative Negative [facility] Blood erythrocytes count (nu mber/volume)Ordered By: Rivera Dodge on 03-30-2023 RBC (Bld) [#/Vol] 4.62 10*6/uL 4.6-6.2 [facility] Blood hemoglobin measurement (mass/volume)Ordered By: Rivera Dodge on 03-30-2023 Hemoglobin (Bld) [Mass/Vol] 13.7 g/dL 13.0-16.5 [facility] Blood lymphocytes/100 leukoc ytesOrdered By: Rivera Dodge on 03-30-2023 Lymphocytes/100 WBC (Bld) 34.9 % 19-41 [facility] Blood monocytes/100 leukocyt esOrdered By: Rivera Dodge on 03-30-2023 Monocytes/100 WBC (Bld) 12.6 % 0-10 [facility] Blood platelet mean volumeOr dered By: Rivera Dodge on 03-30-2023 Platelet mean volume (Bld) [Entitic vol] 9.6 fL 6.2-12.0 [facility] Culture, urineOrdered By: Do zina Dodge on 03-30-2023 Bacteria identified Cx Nom (U) Morganella morganii sp sibonii [facility] Bacteria identified Cx Nom (U) Citrobacter freundii [facility] Determination of erythrocyte mean corpuscular volume (MCV)Ordered By: Rivera Dodge on 03-30-2023 MCV (RBC) [Entitic vol] 87.4 fL 80-94 [facility] Hematocrit Auto (Bld) [Volum e fraction]Ordered By: Rivera Dodge on 03-30-2023 Hematocrit (Bld) [Volume fraction] 40.4 % 40-54 [facility] Ketones Test strip Ql (U)Ord ered By: Rivera Dodge on 03-30-2023 Ketones Ql (U) 5 mg/dl Negative [facility] - Chemistry and C hemistry - challengeOrdered By: Rivera Dodge on 03-30-2023 CO2 [Moles/Vol] 26.0 mmol/L 21.0-32.0 [facility] Urea nitrogen/Creatinine [Mass ratio] 19.3 mg/mg 10-20 [facility] - Hematology and Cell countsOrdered By: Rivera Dodge on 03-30-2023 Erythrocyte distribution width (RBC) [Entitic vol] 39.8 fL 35.1-43.9 [facility] Erythrocyte distribution width (RBC) [Ratio] 12.4 % 11.6-14.6 [facility] Immature granulocytes/100 WBC (Bld) 0.100 % 0.0-0.9 [facility] Comment on above: IG% - Immature Granu locytes (promyelocytes, myelocytes and metamyelocytes) > 1% indicates that a LEFT SHIFT is Present. MCH (RBC) [Entitic mass] 29.7 pg 27.0-32.0 [facility] Nucleated RBC/100 WBC (Bld) [Ratio] 0 % 0-5 [facility] MCHC Auto (RBC) [Mass/Vol]Or dered By: Rivera Dodge on 03-30-2023 MCHC (RBC) [Mass/Vol] 33.9 g/dL 32-36 [facility] Mucus LM Ql (Urine sed)Order ed By: Rivera Dodge on 03-30-2023 Mucus Ql (Urine sed) 0 SEEN /hpf [facility] Nitrite Test strip Ql (U)Ord ered By: Rivera Dodge on 03-30-2023 Nitrite Ql (U) Negative Negative [facility] No Panel InformationOrdered By: Rivera Dodge on 03-30-2023 Estimated GFR (MDRD) Amer 191 mL/min >60 [facility] Comment on above: GFR Calc Estimated GFR (MDRD) Non-Af Amer 158 mL/min >60 [facility] Comment on above: Non- GFR Calc Platelets bldOrdered By: Ramon Dodge on 03-30-2023 Platelets (Bld) [#/Vol] 382 10*3/uL 150-450 [facility] Protein Test strip Ql (U)Ord ered By: Rivera Dodge on 03-30-2023 Protein Ql (U) 15 mg/dl Negative [facility] Serum or plasma calcium jeremiah urement (mass/volume)Ordered By: Rivera Dodge on 03-30-2023 Calcium [Mass/Vol] 8.3 mg/dL 8.5-10.1 [facility] Serum or plasma creatinine m easurement (mass/volume)Ordered By: Rivera Dodge on 03-30-2023 Creatinine [Mass/Vol] 0.57 mg/dL 0.70-1.30 [facility] Comment on above: The validity of the calculated GFR & GFRAA in patients over 70 years has not been determined. Clinical correlation is essential. Serum or plasma urea nitroge n measurement (mass/volume)Ordered By: Rivera Dodge on 03-30-2023 Urea nitrogen [Mass/Vol] 11 mg/dL 7-18 [facility] Squamous epithelial cells de tection in urine sediment by light microscopyOrdered By: Rivera Dodge on 03-30-2023 Epithelial cells.squamous LM Ql (Urine sed) 0-5 SEEN /hpf 0-5 [facility] Thin prep Papanicolaou smear with manual screeningOrdered By: Rivera Dodge on 03-30-2023 Thin prep Papanicolaou smear with manual screening 7 5-15 [facility] Urine blood detectionOrdered By: Rivera Dodge on 03-30-2023 RBC Ql (U) 150 /ul Negative [facility] RBC Ql (U) 10-25 SEEN /hpf 0-5 [facility] Urine clarityOrdered By: Ramon Dodge on 03-30-2023 Clarity (U) Sl. Cloudy Clear [facility] Urine color determinationOrd ered By: Rivera Dodge on 03-30-2023 Color (U) Yellow Yellow [facility] Urine glucose detectionOrder ed By: Rivera Dodge on 03-30-2023 Glucose Ql (U) Normal mg/dl Normal [facility] Urine leukocyte esterase det ection by dipstickOrdered By: Rivera Dodge on 03-30-2023 Leukocyte esterase Test strip Ql (U) 500 /ul Negative [facility] Urine pHOrdered By: Rivera nelson on 03-30-2023 pH (U) 7.0 [pH] 5.0 - 8.0 [facility] Urine sediment bacteria coun t by microscopy (number/high power field)Ordered By: Rivera Dodge on 03-30-2023 Bacteria LM.HPF (Urine sed) [#/Area] 0 /[HPF] None Seen [facility] Urine specific gravity measu rementOrdered By: Rivera Dodge on 03-30-2023 Specific gravity (U) [Rel density] 1.005 1.002-1.030 [facility] Urobilinogen Auto test strip Ql (U)Ordered By: Rivera Dodge on 03-30-2023 Urobilinogen Ql (U) Normal mg/dl Normal [facility] Culture, urineOrdered By: Dr Arleen Albarran on 02-22-2023 Bacteria identified Cx Nom (U) Proteus mirabilis [facility] Absolute lymphocyte countOrd ered By: Dr. Celestin on 02-21-2023 Lymphocytes Auto (Unsp spec) [#/Vol] 1.74 10*3/uL 0.83-4.51 [facility] Basophil percentageOrdered B y: Dr. Celestin on 02-21-2023 Basophils/100 WBC (Bld) 0.5 % 0-1 [facility] Bilirubin [Mass/Vol] 0.70 mg/dL 0.20-1.00 [facility] Comment on above: For patients on eltr ombopag therapy, use of Dimension [place] TBIL is not recommended. Chloride [Moles/Vol] 105 mmol/L 98-107 [facility] Eosinophils/100 WBC (Bld) 1.2 % 0-5 [facility] Glucose [Mass/Vol] 99 mg/dL 74-106 [facility] Neutrophils (Bld) [#/Vol] 3.7 10*3/uL 2.0-7.7 [facility] Neutrophils/100 WBC (Bld) 57.3 % 47-70 [facility] Potassium [Moles/Vol] 3.8 mmol/L 3.5-5.1 [facility] Protein [Mass/Vol] 6.0 g/dL 6.4-8.2 [facility] Sodium [Moles/Vol] 133 mmol/L 136-145 [facility] WBC (Bld) [#/Vol] 6.5 10*3/uL 4.4-11.0 [facility] Blood erythrocytes count (nu mber/volume)Ordered By: Dr. Celestin on 02-21-2023 RBC (Bld) [#/Vol] 4.26 10*6/uL 4.6-6.2 [facility] Blood hemoglobin measurement (mass/volume)Ordered By: Dr. Celestin on 02-21-2023 Hemoglobin (Bld) [Mass/Vol] 12.9 g/dL 13.0-16.5 [facility] Blood lymphocytes/100 leukoc ytesOrdered By: Dr. Celestin on 02-21-2023 Lymphocytes/100 WBC (Bld) 26.7 % 19-41 [facility] Blood monocytes/100 leukocyt esOrdered By: Dr. Celestin on 02-21-2023 Monocytes/100 WBC (Bld) 14.1 % 0-10 [facility] Blood platelet mean volumeOr dered By: Dr. Celestin on 02-21-2023 Platelet mean volume (Bld) [Entitic vol] 9.7 fL 6.2-12.0 [facility] Determination of erythrocyte mean corpuscular volume (MCV)Ordered By: Dr. Celestin on 02-21-2023 MCV (RBC) [Entitic vol] 87.1 fL 80-94 [facility] Hematocrit Auto (Bld) [Volum e fraction]Ordered By: Dr. Celestin on 02-21-2023 Hematocrit (Bld) [Volume fraction] 37.1 % 40-54 [facility] - Chemistry and C hemistry - challengeOrdered By: Dr. Celestin on 02-21-2023 ALP [Catalytic activity/Vol] 60 U/L 45-117 [facility] ALT [Catalytic activity/Vol] 17 U/L 16-61 [facility] CO2 [Moles/Vol] 23.0 mmol/L 21.0-32.0 [facility] Globulin (S) [Mass/Vol] 3.2 g/dL 2.2-4.2 [facility] Urea nitrogen/Creatinine [Mass ratio] 15.8 mg/mg 10-20 [facility] - Hematology and Cell countsOrdered By: Dr. Celestin on 02-21-2023 Erythrocyte distribution width (RBC) [Entitic vol] 40.9 fL 35.1-43.9 [facility] Erythrocyte distribution width (RBC) [Ratio] 13.0 % 11.6-14.6 [facility] Immature granulocytes/100 WBC (Bld) 0.200 % 0.0-0.9 [facility] Comment on above: IG% - Immature Granu locytes (promyelocytes, myelocytes and metamyelocytes) > 1% indicates that a LEFT SHIFT is Present. MCH (RBC) [Entitic mass] 30.3 pg 27.0-32.0 [facility] Nucleated RBC/100 WBC (Bld) [Ratio] 0 % 0-5 [facility] MCHC Auto (RBC) [Mass/Vol]Or dered By: Dr. Celestin on 02-21-2023 MCHC (RBC) [Mass/Vol] 34.8 g/dL 32-36 [facility] No Panel InformationOrdered By: Dr. Celestin on 02-21-2023 Estimated Creatinine Clearance Calc 103.25 ml/min [facility] Estimated GFR (MDRD) Amer 169 mL/min >60 [facility] Comment on above: GFR Calc Estimated GFR (MDRD) Non-Af Amer 140 mL/min >60 [facility] Comment on above: Non- GFR Calc Platelets bldOrdered By: Dr. Celestin on 02-21-2023 Platelets (Bld) [#/Vol] 340 10*3/uL 150-450 [facility] Serum or plasma albumin jeremiah urement (mass/volume)Ordered By: Dr. Celestin on 02-21-2023 Albumin [Mass/Vol] 2.8 g/dL 3.2-5.0 [facility] Serum or plasma albumin/glob ulin mass ratioOrdered By: Dr. Celestin on 02-21-2023 Albumin/Globulin [Mass ratio] 0.9 {ratio} 0.9-2.4 [facility] Serum or plasma calcium jeremiah urement (mass/volume)Ordered By: Dr. Celestin on 02-21-2023 Calcium [Mass/Vol] 7.9 mg/dL 8.5-10.1 [facility] Serum or plasma creatinine m easurement (mass/volume)Ordered By: Dr. Celestin on 02-21-2023 Creatinine [Mass/Vol] 0.63 mg/dL 0.70-1.30 [facility] Comment on above: The validity of the calculated GFR & GFRAA in patients over 70 years has not been determined. Clinical correlation is essential. Serum or plasma urea nitroge n measurement (mass/volume)Ordered By: Dr. Celestin on 02-21-2023 Urea nitrogen [Mass/Vol] 10 mg/dL 7-18 [facility] Thin prep Papanicolaou smear with manual screeningOrdered By: Dr. Celestin on 02-21-2023 Thin prep Papanicolaou smear with manual screening 12 U/L 15-37 [facility] Thin prep Papanicolaou smear with manual screening 5 5-15 [facility] Absolute lymphocyte countOrd ered By: Dr. Albarran on 02-20-2023 Lymphocytes Auto (Unsp spec) [#/Vol] 1.69 10*3/uL 0.83-4.51 [facility] Amorphous sediment detection in urine sediment by light microscopyOrdered By: Dr. Albarran on 02-20-2023 Amorphous sediment LM Ql (Urine sed) 1+ PHOS [facility] Basophil percentageOrdered B y: Dr. Albarran on 02-20-2023 Basophil percentage 10-25 SEEN /hpf 0-5 [facility] Basophils/100 WBC (Bld) 0.2 % 0-1 [facility] Bilirubin [Mass/Vol] 0.80 mg/dL 0.20-1.00 [facility] Comment on above: For patients on eltr ombopag therapy, use of Dimension [place] TBIL is not recommended. Chloride [Moles/Vol] 92 mmol/L 98-107 [facility] Eosinophils/100 WBC (Bld) 0.5 % 0-5 [facility] Glucose [Mass/Vol] 106 mg/dL 74-106 [facility] Comment on above: Fasting Glucose resu lt from 100 to 125 mg/dL suggests IMPAIRED HOMEOSTASIS per A.D.A. criteria. Lactate [Moles/Vol] 1.0 mmol/L 0.4-2.0 [facility] Neutrophils (Bld) [#/Vol] 10.1 10*3/uL 2.0-7.7 [facility] Neutrophils/100 WBC (Bld) 73.6 % 47-70 [facility] Potassium [Moles/Vol] 3.7 mmol/L 3.5-5.1 [facility] Protein [Mass/Vol] 7.3 g/dL 6.4-8.2 [facility] Sodium [Moles/Vol] 124 mmol/L 136-145 [facility] WBC (Bld) [#/Vol] 13.7 10*3/uL 4.4-11.0 [facility] Basophil percentageOrdered B y: Dr. Celestin on 02-20-2023 Basophil percentage 2.9 mg/dL 2.5-4.9 [facility] Bilirubin Test strip Ql (U)O rdered By: Dr. Albarran on 02-20-2023 Bilirubin Ql (U) Negative Negative [facility] Blood erythrocytes count (nu mber/volume)Ordered By: Dr. Albarran on 02-20-2023 RBC (Bld) [#/Vol] 4.98 10*6/uL 4.6-6.2 [facility] Blood hemoglobin measurement (mass/volume)Ordered By: Dr. Albarran on 02-20-2023 Hemoglobin (Bld) [Mass/Vol] 14.7 g/dL 13.0-16.5 [facility] Blood lymphocytes/100 leukoc ytesOrdered By: Dr. Albarran on 02-20-2023 Lymphocytes/100 WBC (Bld) 12.4 % 19-41 [facility] Blood manual differential co mment interpretation (narrative result)Ordered By: Dr. Albarran on 02-20-2023 Manual differential comment Vasu (Bld) [Interp] SCANNED [facility] Blood monocytes/100 leukocyt esOrdered By: Dr. Albarran on 02-20-2023 Monocytes/100 WBC (Bld) 13.0 % 0-10 [facility] Blood platelet mean volumeOr dered By: Dr. Albarran on 02-20-2023 Platelet mean volume (Bld) [Entitic vol] 9.5 fL 6.2-12.0 [facility] Culture, urineOrdered By: Pancho Albarran on 02-20-2023 Bacteria identified Cx Nom (U) Proteus mirabilis [facility] Determination of erythrocyte mean corpuscular volume (MCV)Ordered By: Dr. Albarran on 02-20-2023 MCV (RBC) [Entitic vol] 85.9 fL 80-94 [facility] Hematocrit Auto (Bld) [Volum e fraction]Ordered By: Dr. Albarran on 02-20-2023 Hematocrit (Bld) [Volume fraction] 42.8 % 40-54 [facility] Ketones Test strip Ql (U)Ord ered By: Dr. Albarran on 02-20-2023 Ketones Ql (U) 50 mg/dl Negative [facility] Laboratory - Chemistry and C hemistry - challengeOrdered By: Dr. Albarran on 02-20-2023 ALP [Catalytic activity/Vol] 72 U/L 45-117 [facility] ALT [Catalytic activity/Vol] 19 U/L 16-61 [facility] CO2 [Moles/Vol] 21.0 mmol/L 21.0-32.0 [facility] Globulin (S) [Mass/Vol] 3.8 g/dL 2.2-4.2 [facility] Lipase [Catalytic activity/Vol] 71 U/L 73-393 [facility] Urea nitrogen/Creatinine [Mass ratio] 23.0 mg/mg 10-20 [facility] Laboratory - Chemistry and C hemistry - challengeOrdered By: Dr. Celestin on 02-20-2023 Magnesium [Mass/Vol] 2.1 mg/dL 1.6-2.6 [facility] Laboratory - Hematology and Cell countsOrdered By: Dr. Albarran on 02-20-2023 Erythrocyte distribution width (RBC) [Entitic vol] 39.3 fL 35.1-43.9 [facility] Erythrocyte distribution width (RBC) [Ratio] 12.6 % 11.6-14.6 [facility] Immature granulocytes/100 WBC (Bld) 0.300 % 0.0-0.9 [facility] Comment on above: IG% - Immature Granu locytes (promyelocytes, myelocytes and metamyelocytes) > 1% indicates that a LEFT SHIFT is Present. MCH (RBC) [Entitic mass] 29.5 pg 27.0-32.0 [facility] Nucleated RBC/100 WBC (Bld) [Ratio] 0 % 0-5 [facility] MCHC Auto (RBC) [Mass/Vol]Or dered By: Dr. Albarran on 02-20-2023 MCHC (RBC) [Mass/Vol] 34.3 g/dL 32-36 [facility] Mucus LM Ql (Urine sed)Order ed By: Dr. Albarran on 02-20-2023 Mucus Ql (Urine sed) 0 SEEN /hpf [facility] Nitrite Test strip Ql (U)Ord ered By: Dr. Albarran on 02-20-2023 Nitrite Ql (U) Positive Negative [facility] No Panel InformationOrdered By: Dr. Albarran on 02-20-2023 Estimated Creatinine Clearance Calc 86.12 ml/min [facility] Estimated GFR (MDRD) Amer 132 mL/min >60 [facility] Comment on above: GFR Calc Estimated GFR (MDRD) Non-Af Amer 109 mL/min >60 [facility] Comment on above: Non- GFR Calc Platelets bldOrdered By: Dr. Albarran on 02-20-2023 Platelets (Bld) [#/Vol] 414 10*3/uL 150-450 [facility] Protein Test strip Ql (U)Ord ered By: Dr. Albarran on 02-20-2023 Protein Ql (U) 30 mg/dl Negative [facility] Review by pathologistOrdered By: Dr. Albarran on 02-20-2023 Pathologist review Vasu (Unsp spec) [Interp] Lissett velazco [facility] Pathologist review Vasu (Unsp spec) [Interp] Reviewed [facility] Comment on above: Previous reported re sult: Lissett velazco Edited by: RGOOD on 02/23/23:1038Neutrophilic leukocytosis.Clinical correlation necessary.Rony Simons M.D. 02/23/23 AMENDED REPORT 02/23/23 1038 PATH REV previously reported as: Lissett velazco Serum or plasma albumin jeremiah urement (mass/volume)Ordered By: Dr. Albarran on 02-20-2023 Albumin [Mass/Vol] 3.5 g/dL 3.2-5.0 [facility] Serum or plasma albumin/glob ulin mass ratioOrdered By: Dr. Albarran on 02-20-2023 Albumin/Globulin [Mass ratio] 0.9 {ratio} 0.9-2.4 [facility] Serum or plasma calcium jeremiah urement (mass/volume)Ordered By: Dr. Albarran on 02-20-2023 Calcium [Mass/Vol] 8.6 mg/dL 8.5-10.1 [facility] Serum or plasma creatinine m easurement (mass/volume)Ordered By: Dr. Albarran on 02-20-2023 Creatinine [Mass/Vol] 0.78 mg/dL 0.70-1.30 [facility] Comment on above: The validity of the calculated GFR & GFRAA in patients over 70 years has not been determined. Clinical correlation is essential. Serum or plasma urea nitroge n measurement (mass/volume)Ordered By: Dr. Albarran on 02-20-2023 Urea nitrogen [Mass/Vol] 18 mg/dL 7-18 [facility] Squamous epithelial cells de tection in urine sediment by light microscopyOrdered By: Dr. Albarran on 02-20-2023 Epithelial cells.squamous LM Ql (Urine sed) 0-5 SEEN /hpf 0-5 [facility] Thin prep Papanicolaou smear with manual screeningOrdered By: Dr. Albarran on 02-20-2023 Thin prep Papanicolaou smear with manual screening 14 U/L 15-37 [facility] Thin prep Papanicolaou smear with manual screening 11 5-15 [facility] Urine blood detectionOrdered By: Dr. Albarran on 02-20-2023 RBC Ql (U) 25 /ul Negative [facility] RBC Ql (U) 0-5 SEEN /hpf 0-5 [facility] Urine clarityOrdered By: Dr. Albarran on 02-20-2023 Clarity (U) Sl. Cloudy Clear [facility] Urine color determinationOrd ered By: Dr. Albarran on 02-20-2023 Color (U) Yellow Yellow [facility] Urine glucose detectionOrder ed By: Dr. Albarran on 02-20-2023 Glucose Ql (U) Normal mg/dl Normal [facility] Urine leukocyte esterase det ection by dipstickOrdered By: Dr. Albarran on 02-20-2023 Leukocyte esterase Test strip Ql (U) 500 /ul Negative [facility] Urine pHOrdered By: Dr. Albarran o n 02-20-2023 pH (U) 8.0 [pH] 5.0 - 8.0 [facility] Urine sediment bacteria coun t by microscopy (number/high power field)Ordered By: Dr. Albarran on 02-20-2023 Bacteria LM.HPF (Urine sed) [#/Area] 1 /[HPF] None Seen [facility] Urine specific gravity measu rementOrdered By: Dr. Albarran on 02-20-2023 Specific gravity (U) [Rel density] 1.010 1.002-1.030 [facility] Urobilinogen Auto test strip Ql (U)Ordered By: Dr. Albarran on 02-20-2023 Urobilinogen Ql (U) Normal mg/dl Normal [facility] Discharge [id number] Discharge Profile2 Discharge Orders: Anticipated Discharge Date: Anticipated Discharge [id number] Problem List: Additional Dx: Abnormal computed tomography of gastrointestinal tract: Catalog Name: Abnormal findings on diagnostic imaging of other parts of digestive tract Obstipation: Catalog Name: Constipation, unspecified Hospital Providers: Provider RoleProvider Name Maddie Gibbs DNAR: Code Status at Discharge: Full Code Activity: activity as tolerated. May shower. May not drive. Weight-bearing Instructions: full weight bearing. Diet: Dietresume normal diet Encourage FluidsDrink plenty of a variety of fluids to prevent dehydration. Signs of dehydration are: dry mouth, dark yellow urine in small amounts, and dizziness with change in position or increased feeling of weakness/tiredness. Catheter Care: Typeindwelling Catheter Caresoap and water Catheter Care FrequencyTwice daily and as needed Catheter ChangeChange once per month per usual routine Additional Orders: Additional Instructions Continue home bowel regimen Drink plenty of a variety of fluids to prevent dehydration. Signs of dehydration are: dry mouth, dark yellow urine in small amounts, and dizziness with change in position or increased feeling of weakness/tiredness. Call Provider If (Homegoing Patients): Breathing faster than normal. Temperature is greater than 102 degrees. Chills. Urinating less than normal, over 1 day. Acting very sleepy and difficult to awaken. Vomiting (throwing up) and not able to eat or drink for 12 hours. Any new concerning symptoms. If you have questions or concerns, call your doctor s office at: [phone]. This phone number is answered 06/06. If it is after hours, and you need to speak to a physician, the service will answer and page the physician covering, who will return your call. Hospital Course (Home Care/Gold Form): Hospital Course: Hospital Course: include significant abnormal lab values Jian Altamirano is a 57 year old Male with a history of congenital hydrocephalus s/p remote SOFT SHOE DANCER shunt (revision at 19yo), bowel dysmotility, neurogenic [...] with home primary care doctor as needed. Infectious Disease: PPD Statusnot given MRSAno VREno C. Diffno Other Resistant Organismno Isolation Typenone Home Care Orders: Face to Face Certification: Home Care Services Needed: yes Provider to Follow After Discharge: PCP Skilled Disciplines Ordered: RN/POWERHOUSE OILER, for monthly Hannon catheter change Face to Face Encounter Completed: yes Date of Encounter: 14-Dec-2022 Medical Necessity for Homecare (based on clinical findings): My clinical findings support the need for the following skilled services: Nursing/RN needed to assist with monthly indwelling catheter change Homebound Status: homebound Homebound Due to:: Based on my clinical findings, this patient is homebound due to chronic physical limitations Face to Face Completed and Home Care Orders Reviewed: I certify that this patient is under my care. I have reviewed the information included in the face to face and certify that the home care services ordered are medically necessary for this patient. Home Care Services: Home Care Skilled Servicefoley catheter Hannon Catheter [facility] FINAL REVIEW of Orders: Final Review: Final Review of Medication Reconciliation and Orders Completedby ORALIA Reviewing ProviderCHANDRIKA Bose at 15-Dec-2022 13:26:10 Name/Contact Info for Questions About [facility]charge [facility]Un[facility], [facility], pager [phone] Appointments: Follow-Up Appointment 01: Physician/Dept/Daren Thornton Reason for ReferralColorectal Surgeon Phone [phone] Commentsfollow up as needed Electronic Signatures: Anila Ferguson ([facility]) (Signed 15-Dec-2022 12:04) Authored: Discharge Orders, Hospital Course (Home Care/Gold Form), Home Care Orders, Provider FINAL REVIEW of Orders, Appointments, Gold Form - Drum Sprayer Summary Long Saldaña ([facility]) (Sig (more content not included)... Normal [facility] Order Reconciliationon 12-15 Order Reconciliation Page 1 Discharge Reconciliation Document Reconciliation Type: Discharge requested on behalf of Long Saldaña (Advanced Practice Nurse) done by Long Saldaña ([facility]) Discharge - Reconciliation: 15-Dec-2022 13:27 by: Long Saldaña ([facility]) Home Medications EnteredHOME MEDICATIONS AT DISCHARGE DateReconciliation Comment/ Additional Information baclofen 5 mg oral tablet 1 tab(s) orally 3 times a day 11-Dec-2022 14:49 baclofen 5 mg oral tablet 1 tab(s) orally 3 times a day 11-Dec-2022 14:49 baclofen 5 mg oral tablet is continued as baclofen 5 mg oral tablet linaclotide 290 mcg oral capsule 1 cap(s) orally once a day with first meal of the day 11-Dec-2022 14:49 linaclotide 290 mcg oral capsule 1 cap(s) orally once a day with first meal of the day 11-Dec-2022 14:49 linaclotide 290 mcg oral capsule is continued as linaclotide 290 mcg oral capsule Current OrdersDateHOME MEDICATIONS AT DISCHARGE DateReconciliation Comment/ Additional Information Baclofen Tablet (LIORESAL)DOSE = 5 mg Oral 3 Times a Day 13-Dec-2022 09:50 Baclofen is not required Bisacodyl Rectal Suppository (DULCOLAX)DOSE = 10 mg Rectal 2 Times a Day 13-Dec-2022 09:48 Bisacodyl Rectal is not required Enoxaparin SubCutaneous (LOVENOX)DOSE = 40 mg SubCutaneous Every 24 Hours 11-Dec-2022 22:12 Enoxaparin SubCutaneous is not required Linaclotide Capsule (LINZESS)DOSE = 290 microgram(s) Oral DailyClinician Notes: with first meal 13-Dec-2022 09:50 Linaclotide is not required Ondansetron Injectable (ZOFRAN)DOSE = 4 mg IntraVenous Push Every 6 Hours, PRN Nausea and/or Vomiting 11-Dec-2022 22:15 Ondansetron Injectable is not required Pantoprazole Injectable (PROTONIX)DOSE = 40 mg IntraVenous Push Every 24 Hours 11-Dec-2022 22:16 Pantoprazole Injectable is not required Sodium Chloride 0.9% Injectable Flush via Peripheral LineVolume = 10 mL IntraVenous Flush Every 8 Hours and as Needed 11-Dec-2022 22:12 Sodium Chloride 0.9% Injectable Flush is not required All Active Home Medications at time of Discharge Reconciliation: 15-Dec-2022 13:27 baclofen 5 mg oral tablet 1 tab(s) orally 3 times a day linaclotide 290 mcg oral capsule 1 cap(s) orally once a day with first meal of the day Normal [facility] Daily Progress Note-Colorect al Surgeryon 12-14-2022 Daily Progress Note-Colorectal Surgery Service: Colorectal Surgery Subjective Data: JIAN ALTAMIRANO is a 57 year old Male who is Hospital Day # 4. No acute events overnight, afebrile with stable vital signs. states he feels well today, back to base Large liquid stool this am, holding bowel regime this am Advanced to soft diet as tolerated. Objective Data: Objective Information: T PRBPMAPSpO2 [id number]/7896% Date/Time12/14 9: 9: 9: 9: 9:50 Range(36C - 37.1C ) (72 - 96 ) (16 - 18 ) (117 - 149 )/ (76 - 89 ) (95% - 98% ) Highest temp of 37.1 C was recorded at 12/14 9:24 Pain reported at 12/14 11:10: 0 = None ---- Intake and Output ----- Mn/Dy/Year TimeIntakeOutputNet Dec 14, 2022 2:00 [id number] Dec 14, 2022 6:00 [id number] Dec 13, 2022 10:00 [id number] The Intake and Output Totals for the last 24 hours are: IntakeOutputNet [id number] Physical Exam by System: Constitutional: lying in bed, alert and conversive, no distress Eyes: clear sclera ENMT: MMM Respiratory/Thorax: Chest expansion symmetrical, unlabored on room air Cardiovascular: Regular Gastrointestinal: Abdomen soft, minimal distention, no guarding or rebound tenderness Genitourinary: Continues with chronic indwelling hannon with sufficient urine Musculoskeletal: ESQUIVEL x 4 Extremities: warm and dry, SCDs on Neurological: appropriate conversation Psychological: Appropriate mood and behavior Skin: Warm and dry, no lesions, no rashes Medication: Medications: Continuous Medications -------- 1. Dextrose 5% - NaCL 0.45% Infusion: 1000 mL IntraVenous Scheduled Medications -------- 1. Baclofen: 5 mg Oral 3 Times a Day 2. Bisacodyl Rectal: 10 mg Rectal 2 Times a Day 3. Enoxaparin SubCutaneous: 40 mg SubCutaneous Every 24 Hours 4. Linaclotide: 290 microgram(s) Oral Daily 5. Pantoprazole Injectable: 40 mg IntraVenous Push Every 24 Hours PRN Medications -------- 1. Ondansetron Injectable: 4 mg IntraVenous Push Every 6 Hours 2. Sodium Chloride 0.9% Injectable Flush: 10 mL IntraVenous Flush Every 8 Hours and as Needed Assessment and Plan: Code Status: Code StatusFull Code Assessment: VALENTINLANAJIAN MONTES DE OCA is a 57 year old Male with Hx congenital hydrocephalus s/p remote SOFT SHOE DANCER shunt (revision at 19yo), bowel dysmotility, neurogenic bladder, HTN, HLD, seizures who presented to OSH with abdominal pain c/f significant constipation vs rectosigmoid narrowing. Plan: Neuro: history congential hydrocephalus, seizures, comfortable - no pain meds needed - Continue home baclofen CV: Hx HTN- on no medications at home - VS q8 Pulm: no acute issues - IS 10x/hr and PRN - OOB as tolerated with assist GI: Hx neurogenic bowel, frequent - enema and suppository held this am for large stool - Continue home Linzess - Advance to soft diet as tolerated - continue to observe for stool, continue bowel routine : chronic hannon - continue strict intake and output - IV off Heme: no overt signs of bleeding, no indication for transfusions ID: afebrile - no indication for ATB at this time Endo: no glycemic requirements PPx: LVX, SCDs Dispo: cont management on RNF - will resume home nurse for ahnnon change monthly as needed Discussed with surgery K Marty BARTON-[employer] FINISHER Colorectal Surgery HOME M[employer] DISCLOSURE ACT SPECIALIST #[id number] [place] # [id number] Electronic Signatures: Anila Ferguson (SENIOR BUSINESS MANAGER-[employer]) (Signed 14-Dec-2022 15:56) Authored: Service, Subjective Data, Objective Data, Assessment and Plan, Note Completion Last Updated: 14-Dec-2022 15:56 by Anila Ferguson (SENIOR BUSINESS MANAGER-[facility]) Normal [facility] CBCon 12-13-2022 HCT Canceled Normal [facility] Comment on above: Order Comment: TEST CBC WAS CANCELLED, 12/13/2022 08:13 NO SPECIMEN RECEIVED IN LAB. Performed By: #### C BC #### [facility] [address] [place] [address] HGB Canceled Normal [facility] Comment on above: Order Comment: TEST CBC WAS CANCELLED, 12/13/2022 08:13 NO SPECIMEN RECEIVED IN LAB. Performed By: #### C BC #### [facility] [address] [place] [address] MCHC Canceled Normal [facility] Comment on above: Order Comment: TEST CBC WAS CANCELLED, 12/13/2022 08:13 NO SPECIMEN RECEIVED IN LAB. Performed By: #### C BC #### [facility] [address] [place] [address] MCV Canceled Normal [facility] Comment on above: Order Comment: TEST CBC WAS CANCELLED, 12/13/2022 08:13 NO SPECIMEN RECEIVED IN LAB. Performed By: #### C BC #### [facility] [address] [place] [address] NUCLEATED RBC Canceled Normal [facility] Comment on above: Order Comment: TEST CBC WAS CANCELLED, 12/13/2022 08:13 NO SPECIMEN RECEIVED IN LAB. Performed By: #### C BC #### [facility] [address] [place] [address] PLT Canceled Normal [facility] Comment on above: Order Comment: TEST CBC WAS CANCELLED, 12/13/2022 08:13 NO SPECIMEN RECEIVED IN LAB. Performed By: #### C BC #### [facility] [address] [place] [address] RBC Canceled Normal [facility] Comment on above: Order Comment: TEST CBC WAS CANCELLED, 12/13/2022 08:13 NO SPECIMEN RECEIVED IN LAB. Performed By: #### C BC #### [facility] [address] [place] [address] RDW-CV Canceled Normal [facility] Comment on above: Order Comment: TEST CBC WAS CANCELLED, 12/13/2022 08:13 NO SPECIMEN RECEIVED IN LAB. Performed By: #### C BC #### [facility] [address] [place] [address] WBC Canceled Normal [facility] Comment on above: Order Comment: TEST CBC WAS CANCELLED, 12/13/2022 08:13 NO SPECIMEN RECEIVED IN LAB. Performed By: #### C BC #### [facility] [address] [place] [address] Daily Progress Note-Colorect al Surgeryon 12-13-2022 Daily Progress Note-Colorectal Surgery Service: Colorectal Surgery Subjective Data: JIAN ALTAMIRANO is a 57 year old Male who is Hospital Day # 3. No acute events overnight. Having bowel movements with suppositories and enemas. NGT output low. Objective Data: Objective Information: T PRBPMAPSpO2 [id number]% Date/Time12/13 4: 4: 4: 4: 4: 4:54 Range(36C - 36.2C ) (79 - 92 ) (16 - 18 ) (116 - 150 )/ (75 - 92 ) (89 - 89 ) (96% - 98% ) As of 12-Dec-2022 04:58:00, patient is on 2 L/min of oxygen via room air. Pain reported at 12/12 9:50: 0 = None Physical Exam Narrative: Physical Exam: Constitutional: NAD, AAO, lying comfortably in bed Eyes: EOMI ENMT: MMM, NGT with minimal gastric output in cannister Head/Neck: Trachea midline Respiratory/Thorax: No conversational dyspnea, on RA, symmetric chest rise Cardiovascular: RR per bedside monitor Gastrointestinal: soft, nondistended, nontender Genitourinary: Chronic hannon in place Musculoskeletal: ESQUIVEL Extremities: warm and well perfused, no edema Psychological: Appropriate mood and behavior Skin: warm, no cyanosis or jaundice Medication: Medications: Continuous Medications -------- 1. Dextrose 5% - NaCL 0.45% Infusion: 1000 mL IntraVenous Scheduled Medications -------- 1. Bisacodyl Rectal: 10 mg Rectal Daily 2. Enoxaparin SubCutaneous: 40 mg SubCutaneous Every 24 Hours 3. Pantoprazole Injectable: 40 mg IntraVenous Push Every 24 Hours PRN Medications -------- 1. Methocarbamol Injectable: 1000 mg IntraVenous Push Every 8 Hours 2. Ondansetron Injectable: 4 mg IntraVenous Push Every 6 Hours 3. Sodium Chloride 0.9% Injectable Flush: 10 mL IntraVenous Flush Every 8 Hours and as Needed Assessment and Plan: Code Status: Code StatusFull Code Assessment: SHARANJIAN MONTES DE OCA is a 57 year old Male with Hx congenital hydrocephalus s/p remote SOFT SHOE DANCER shunt (revision at 19yo), bowel dysmotility, neurogenic bladder, HTN, HLD, seizures who presented to OSH with abdominal pain c/f significant constipation vs rectosigmoid narrowing. Plan Neuro: no pain meds needed, will restart baclofen Pulm: IS 10x/hr and PRN CV: no cardiac meds, cont to monitor hemodynamics FEN/GI: D51/2NS down to 40cc/hr, replete lytes PRN, will d/c NGT, start CLD, restart home linzess, cont daily suppositories and enemas : chronic hannon, cont strict I/Os Heme: no overt signs of bleeding, no indication for transfusions ID: no overt signs of infection, no indication for abx Endo: no glycemic requirements MSK: OOB with assistance PPx: LVX, SCDs Dispo: cont management on RNF Patient seen and discussed with attending, Dr. Norberto Coates MD PGY5 Colorectal Surgery [id number] Attestation: Note Completion: I am a: Resident/Fellow Attending AttestationI saw and evaluated the patient. I personally obtained the giraldo and critical portions of the history and physical exam or was physically present for giraldo and critical portions performed by the resident/fellow. I reviewed the resident/fellows documentation and discussed the patient with the resident/fellow. I agree with the resident/fellows medical decision making as documented in the note. I personally evaluated the patient [id number] Electronic Signatures: Maddie Thornton) (Signed 16-Dec-2022 13:50) Authored: Note Completion Co-Signer: Service, Subjective Data, Objective Data, Assessment and Plan, Note Completion Clifford Coates (Resident)) (Signed 13-Dec-2022 09:48) Authored: Service, Subjective Data, Objective Data, Assessment and Plan, Note Completion Last Updated: 16-Dec-2022 13:50 by Maddie Thornton) Normal [facility] CBCon 12-12-2022 HCT Canceled Normal [facility] Comment on above: Order Comment: TEST CBC WAS CANCELLED, 12/12/2022 10:51 QNS, PLEASE RESUBMIT.. Performed By: #### C BC #### [facility] [address] [place] [address] HGB Canceled Normal [facility] Comment on above: Order Comment: TEST CBC WAS CANCELLED, 12/12/2022 10:51 QNS, PLEASE RESUBMIT.. Performed By: #### C BC #### [facility] [address] [place] [address] MCHC Canceled Normal [facility] Comment on above: Order Comment: TEST CBC WAS CANCELLED, 12/12/2022 10:51 QNS, PLEASE RESUBMIT.. Performed By: #### C BC #### [facility] [address] [place] [address] MCV Canceled Normal [facility] Comment on above: Order Comment: TEST CBC WAS CANCELLED, 12/12/2022 10:51 QNS, PLEASE RESUBMIT.. Performed By: #### C BC #### [facility] [address] [place] [address] NUCLEATED RBC Canceled Normal [facility] Comment on above: Order Comment: TEST CBC WAS CANCELLED, 12/12/2022 10:51 QNS, PLEASE RESUBMIT.. Performed By: #### C BC #### [facility] [address] [place] [address] PLT Canceled Normal [facility] Comment on above: Order Comment: TEST CBC WAS CANCELLED, 12/12/2022 10:51 QNS, PLEASE RESUBMIT.. Performed By: #### C BC #### [facility] [address] [place] [address] RBC Canceled Normal [facility] Comment on above: Order Comment: TEST CBC WAS CANCELLED, 12/12/2022 10:51 QNS, PLEASE RESUBMIT.. Performed By: #### C BC #### [facility] [address] [place] [address] RDW-CV Canceled Normal [facility] Comment on above: Order Comment: TEST CBC WAS CANCELLED, 12/12/2022 10:51 QNS, PLEASE RESUBMIT.. Performed By: #### C BC #### [facility] [address] [place] [address] WBC Canceled Normal [facility] Comment on above: Order Comment: TEST CBC WAS CANCELLED, 12/12/2022 10:51 QNS, PLEASE RESUBMIT.. Performed By: #### C BC #### [facility] [address] [place] [address] HCT Canceled Normal [facility] Comment on above: Order Comment: TEST CBC WAS CANCELLED, 12/11/2022 22:21 Performed By: #### C BC #### [facility] [address] [place] [address] HGB Canceled Normal [facility] Comment on above: Order Comment: TEST CBC WAS CANCELLED, 12/11/2022 22:21 Performed By: #### C BC #### [facility] [address] [place] [address] MCHC Canceled Normal [facility] Comment on above: Order Comment: TEST CBC WAS CANCELLED, 12/11/2022 22:21 Performed By: #### C BC #### [facility] [address] [place] [address] MCV Canceled Normal [facility] Comment on above: Order Comment: TEST CBC WAS CANCELLED, 12/11/2022 22:21 Performed By: #### C BC #### [facility] [address] [place] [address] NUCLEATED RBC Canceled Normal [facility] Comment on above: Order Comment: TEST CBC WAS CANCELLED, 12/11/2022 22:21 Performed By: #### C BC #### [facility] [address] [place] [address] PLT Canceled Normal [facility] Comment on above: Order Comment: TEST CBC WAS CANCELLED, 12/11/2022 22:21 Performed By: #### C BC #### [facility] [address] [place] [address] RBC Canceled Normal [facility] Comment on above: Order Comment: TEST CBC WAS CANCELLED, 12/11/2022 22:21 Performed By: #### C BC #### [facility] [address] [place] [address] RDW-CV Canceled Normal [facility] Comment on above: Order Comment: TEST CBC WAS CANCELLED, 12/11/2022 22:21 Performed By: #### C BC #### [facility] [address] [place] [address] WBC Canceled Normal [facility] Comment on above: Order Comment: TEST CBC WAS CANCELLED, 12/11/2022 22:21 Performed By: #### C #### [facility] [address] [place] [address] Covid 19 Resultson 3 SARS-CoV-2 (COVID-19) RNA MOHINI+probe Ql (Unsp spec) NEGATIVE COVID-19 Test Coronaviruses are common world-wide and are the cause of many common colds. SARS-COV2 is a new coronavirus that began circulating worldwide in 2019 so we are calling it COVID-19. It has been estimated that four out of five patients with COVID-19 will recover at home without the need for medical attention. Symptoms of COVID-19 may include cough, fever, shortness of breath, loss of taste or smell and other flu-like symptoms including chills, sore muscles, sore throat, and headache. Severe illness is more common in older people and people with other health problems such as high blood pressure, obesity, and immune system problems. If the test is positive, you have COVID-19. You will be contacted by the ordering physicians office and instructed to remain on home isolation, in accordance with CDC guidelines. You may also be contacted by the [facility] to see if any of your close contacts may have been exposed to the virus and need to quarantine. If the test is negative, you likely do not have COVID-19 at this time, but you still may have a different illness that can spread to other people (like Influenza, or the Flu) and could still be at risk for getting COVID-19. We recommend that you stay away from other people to limit the spread of illness until your symptoms are improving and you are fever-free for 24 hours without the use of fever lowering medications such as acetaminophen or ibuprofen. No test is 100% accurate so if you are still concerned you may have COVID-19, talk to your doctor about the need to continue to stay away from others. Medicines Unless your provider told you not to use the following: Acetaminophen (Tylenol and others) is generally safe. Anti-inflammatory medications, such as Ibuprofen (Advil or Motrin) or Naproxen (Aleve) can also be used. Ulks-vqc-xajetdw cough and cold medicines can be used according to the instructions on the package. Some gttr-pbi-koquiry medicines also contain acetaminophen. Make sure you are not taking more than your recommended dose. For those not hospitalized, there is no specific treatment available for this illness. Antibiotics do not treat Coronaviruses. Follow-Up Follow up with your doctor by scheduling a virtual visit or consider follow-up at one of our urgent care fever clinics. If you are having difficulty breathing, or are very weak and having difficulty standing, this is a medical emergency. Call 911 or have someone take you to the nearest emergency room immediately. If possible, wear a facemask. Additional guidance from the CDC for patients who tested POSITIVE for COVID-19 How to isolate: Isolate yourself in a specific room at home and limit your contact with others. Use a separate bathroom from other members of the household, when possible. Leave home only to get essential medical care. Do not go to work, school or public areas. Avoid using public transportation, ride-sharing, or taxis. Restrict contact with pets and other animals. If you must care for your pet or be around animals while you are sick, wash your hands before and after your interaction and wear a facemask. Make sure that shared spaces in the home have good airflow, such as by an air conditioner or an opened window, weather permitting. Personal Hygiene Procedures: Wear a face mask when in the same room as other people or pets. If a face mask interferes with your breathing, others should wear a mask when sharing space with you. Frequent hand-washing: wash your hands with soap and water for at least 20 seconds. If soap and water are not available, use alcohol-based hand lobster man. Avoid touching your eyes, nose, and mouth with unwashed hands. Household Hygiene Procedures: Avoid sharing personal household items such as dishes, glassware, cups, eating utensils, towels or bedding with other people or pets in your home. After use, these items should be washed with soap and hot water. Disinfect all high-touch surfaces every day with antibacterial cleaning solutions such as Lysol wipes, bleach, cleansers, etc. High-touch surfaces include tabletops, doorknobs, bathroom fixtures, toilets, phones, keyboards, tablets and bedside tables. Immediately clean any surfaces that may have blood, poop or body fluids on them, using antibacterial cleaning solutions such as Lysol wipes, bleach, cleansers, etc. If clothing or bedding come into contact with blood, poop or body fluids, they should be washed immediately. Follow the directions on the laundry detergent and clothing labels but hot water is recommended when possible. Stopping home isolation precautions: If possible, consult your doctor before stopping home isolation precautions. According to the CDC, you can discontinue home isolation precautions when you have met both of these criteria: Your fever and respiratory symptoms have been gone for 24 morris (more content not included)... Normal [facility] Daily Progress Note-Colorect al Surgeryon 12-12-2022 Daily Progress Note-Colorectal Surgery Service: Colorectal Surgery Subjective Data: JIAN ALTAMIRANO is a 57 year old Male who is Hospital Day # 2. No acute events overnight. Objective Data: Objective Information: T PRBPMAPSpO2 [id number]% Date/Time12/12 4: 4: 4: 4: 4: 4:58 Range(36.2C - 36.8C ) (83 - 94 ) (16 - 18 ) (116 - 148 )/ (75 - 96 ) (89 - 101 ) (95% - 99% ) As of 12-Dec-2022 04:58:00, patient is on 2 L/min of oxygen via nasal cannula. Pain reported at 12/12 7:30: sleeping Physical Exam Narrative: Physical Exam: Constitutional: NAD, AAO, lying comfortably in bed Eyes: EOMI ENMT: MMM, NGT with gastric output in cannister Head/Neck: Trachea midline Respiratory/Thorax: No conversational dyspnea, on RA, symmetric chest rise Cardiovascular: RR per bedside monitor Gastrointestinal: soft, minimally distended, nontender Genitourinary: Chronic hannon in place Musculoskeletal: ESQUIVEL Extremities: warm and well perfused, no edema Psychological: Appropriate mood and behavior Skin: warm, no cyanosis or jaundice Recent Lab Results: Results: CBC: 12/12/2022 08:37 \\ Hgb / \\ Canceled / WBC Plt Canceled Canceled / Hct \\ / Canceled \\ RBC: Canceled MCV: Canceled RFP: 12/12/2022 08:37 NA+ Cl- BUN / 132 L 98 12 / -------- Glucose --- 76 K+ HCO3- Creat \\ 4.1 24 0.67 \\ Calcium : 8.9Anion Gap : 14 Albumin : 3.3 L Phos : 4.5 Assessment and Plan: Code Status: Code StatusFull Code Assessment: JIAN ALTAMIRANO is a 57 year old Male with Hx congenital hydrocephalus s/p remote SOFT SHOE DANCER shunt (revision at 19yo), bowel dysmotility, neurogenic bladder, HTN, HLD, seizures who presented to OSH with abdominal pain c/f significant constipation vs rectosigmoid narrowing. Plan: -NSGY to evaluate for shunt externalization if needs colectomy or colostomy -Ok for LVX, SCDs -NPO, NGT in place for now - go lytely prep - lactulose tomorrow - switch LR to mIVF - suppository and enemas Patient seen and discussed with attending, Dr. Norberto Nice DO PGY2 Colorectal Surgery [id number] Attestation: Note Completion: I am a: Resident/Fellow Attending AttestationI saw and evaluated the patient. I personally obtained the giraldo and critical portions of the history and physical exam or was physically present for giraldo and critical portions performed by the resident/fellow. I reviewed the resident/fellows documentation and discussed the patient with the resident/fellow. I agree with the resident/fellows medical decision making as documented in their note with the exception/addition of the following: I personally evaluated the patient [id number] Comments/ Additional Findings No evidence of colonic volvulus. Severe constipation and dysmotility. Given NG in place will administer Go Lytely prep prior to removal. Resume home regimen of enema and suppositories. Will also add Miralax or lactulose to home regimen. Electronic Signatures: Maryann Nice ( (Resident)) (Signed 12-Dec-2022 13:32) Authored: Service, Subjective Data, Objective Data, Assessment and Plan, Note Completion Maddie Thornton) (Signed 16-Dec-2022 13:34) Authored: Note Completion Co-Signer: Service, Subjective Data, Objective Data, Assessment and Plan, Note Completion Last Updated: 16-Dec-2022 13:34 by Maddie Thornton) Normal [facility] Daily Progress Note-Gastroen terologyon 12-12-2022 Daily Progress Note-Gastroenterology Service: Gastroenterology Subjective Data: JIAN ALTAMIRANO is a 57 year old Male who is Hospital Day # 2. Patient reports no abdominal pain. No complaints this am other than dry mouth. Patient's sister requesting suppository so she can assist with manual digital disimpaction which she states she has to do periodically due to his chronic motility issues. Objective Data: Objective Information: T PRBPMAPSpO2 [id number]% Date/Time12/12 4: 4: 4: 4: 4: 4:58 Range(36.2C - 36.8C ) (83 - 94 ) (16 - 18 ) (116 - 148 )/ (75 - 96 ) (89 - 101 ) (95% - 99% ) As of 12-Dec-2022 04:58:00, patient is on 2 L/min of oxygen via nasal cannula. Pain reported at 12/12 7:30: sleeping Physical Exam by System: Constitutional: NAD, NG to suction. Eyes: EOMI ENMT: MMM Head/Neck: NC, AT Respiratory/Thorax: CTAB Cardiovascular: RRR Gastrointestinal: Soft, NT, ND, +BS Musculoskeletal: Normal bulk Extremities: No cyanosis, pitting edema Neurological: A&O x3 Psychological: Appropriate mood and behavior Skin: No rashes Medication: Medications: Continuous Medications -------- 1. Lactated Ringers Infusion: 1000 mL IntraVenous Scheduled Medications -------- 1. Enoxaparin SubCutaneous: 40 mg SubCutaneous Every 24 Hours 2. Pantoprazole Injectable: 40 mg IntraVenous Push Every 24 Hours 3. Polyethylene Glycol with Electrolytes: 2 liter(s) Gastrostomy Tube Once PRN Medications -------- 1. Methocarbamol Injectable: 1000 mg IntraVenous Push Every 8 Hours 2. Ondansetron Injectable: 4 mg IntraVenous Push Every 6 Hours 3. Sodium Chloride 0.9% Injectable Flush: 10 mL IntraVenous Flush Every 8 Hours and as Needed Recent Lab Results: Results: CBC: 12/11/2022 22:23 \\ Hgb / \\ Canceled / WBC Plt Canceled Canceled / Hct \\ / Canceled \\ RBC: Canceled MCV: Canceled Neutrophil %: 62.2 RFP: 12/11/2022 22:23 NA+ Cl- BUN / Canceled Canceled Canceled / -------- Glucose --- Canceled K+ HCO3- Creat \\ Canceled Canceled Canceled \\ Calcium : CanceledAnion Gap : Canceled Albumin : Canceled Phos : Canceled The performance characteristics of phosphorus testing in heparinized plasma have been validated by the individual laboratory site where testing is performed. Testing on heparinized plasma is not approved by the FDA; however, suc Coagulation: 12/11/2022 09:28 PT / 12.4 / -------< INR < 1.1 PTT\\ 29 \\ Radiology Results: Results: Impression: Intact SOFT SHOE DANCER shunt catheter without kinking or discontinuity. Gaseous distention of bowel loops throughout the abdomen Xray Adult Shunt Series [Dec 11 2022 4:14PM] Assessment and Plan: Code Status: Code StatusFull Code Assessment: 57 yo, PMH of congenital hydrocephalus s/p SOFT SHOE DANCER shunt, chronic indwelling catheter, gastroparesis, prior bowel obstructions, HTN, seizures, who presented as a transfer from [place] due to a possible sigmoid volvulus. GI is consulted for the same Imaging not typical of a sigmoid volvulus, given significant dilation of small bowel, large bowel, as well as stomach, suspect a component of chronic dysmotility. Does have a large stool burden in a high lying rectum, possibly leading to region of sigmoid narrowing. Flex sig in OR 12/11 - Dilated in the rectum, in the sigmoid colon, in the descending colon and in the distal transverse colon with redundant colon consistent with chronic dysmotility. - Stool in the entire examined colon - No narrowing or volvulus encountered Recs - Aggressive bowel regimen to clear out extensive stool burden. - Repeat imaging PRN. Consider obtaining additional prior outside imaging results for comparison re: chronicity. 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 - Trial of clamping NG with removal if does well GI will sign off. If additional questions, [place] [phone] during the daytime/weekdays, and [phone] after 5pm and on weekends/holidays. Follow up with PCP and GI in [place], [place]. Plan of Care Reviewed With: Plan of Care Reviewed With: patient; sibling; durable/healthcare power of director of corporate responsibility Consult Status: Consult Status (select all that apply): initial consult complete, will not follow, call as needed Multidisciplinary Rounding: The following staff were in attendance consulting physician and fellow. The following topics were discussed during rounds blood test results, diet, discharge planning, imaging/procedure results, issues/problems expressed by family, medications and plan of car (more content not included)... Normal [facility] MAGNESIUMon 12-12-2022 Magnesium [Mass/Vol] 1.88 mg/dL Normal 1.60 - 2.40 [facility] Comment on above: Performed By: #### V FPA4 #### [facility] [address] [place] [address] MAGNESIUM Canceled Normal [facility] Comment on above: Order Comment: TEST MAGNESIUM WAS CANCELLED, 12/11/2022 22:21 Performed By: #### C BCDF #### [facility] [address] [place] [address] RENAL FUNCTION PANELon 12-12 Albumin [Mass/Vol] 3.3 g/dL Low 3.4 - 5.0 [facility] Comment on above: Performed By: #### V FPA4 #### [facility] [address] [place] [address] Anion gap [Moles/Vol] 14 mmol/L Normal 10 - 20 [facility] Comment on above: Performed By: #### V FPA4 #### [facility] [address] [place] [address] Calcium [Mass/Vol] 8.9 mg/dL Normal 8.6 - 10.6 [facility] Comment on above: Performed By: #### V FPA4 #### [facility] [address] [place] [address] Chloride [Moles/Vol] 98 mmol/L Normal 98 - 107 [facility] Comment on above: Performed By: #### V FPA4 #### [facility] [address] [place] [address] Creatinine [Mass/Vol] 0.67 mg/dL Normal 0.50 - 1.30 [facility] Comment on above: Performed By: #### V FPA4 #### [facility] [address] [place] [address] eGFR MALE >90 Normal >90 [facility] Comment on above: Result Comment: CALC ULATIONS OF ESTIMATED GFR ARE PERFORMED USING THE 2020 CKD-EPI STUDY REFIT EQUATION WITHOUT THE RACE VARIABLE FOR THE IDMS-TRACEABLE CREATININE METHODS. https://jasn.asnjournals.org/content/early//ASN.393 1884247 Performed By: #### V FPA4 #### [facility] [address] [place] [address] Glucose [Mass/Vol] 76 mg/dL Normal 74 - 99 [facility] Comment on above: Performed By: #### V FPA4 #### [facility] [address] [place] [address] HCO3 (Bld) [Moles/Vol] 24 mmol/L Normal 21 - 32 [facility] Comment on above: Performed By: #### V FPA4 #### [facility] [address] [place] [address] Phosphate [Mass/Vol] 4.5 mg/dL Normal 2.5 - 4.9 [facility] Comment on above: Result Comment: The performance characteristics of phosphorus testing in heparinized plasma have been validated by the individual laboratory site where testing is performed. Testing on heparinized plasma is not approved by the FDA; however, such approval is not necessary. Performed By: #### V FPA4 #### [facility] [address] [place] [address] Potassium [Moles/Vol] 4.1 mmol/L Normal 3.5 - 5.3 [facility] Comment on above: Performed By: #### V FPA4 #### [facility] [address] [place] [address] Sodium [Moles/Vol] 132 mmol/L Low 136 - 145 [facility] Comment on above: Performed By: #### V FPA4 #### [facility] [address] [place] [address] Urea nitrogen [Mass/Vol] 12 mg/dL Normal 6 - 23 [facility] Comment on above: Performed By: #### V FPA4 #### [facility] [address] [place] [address] ALBUMIN Canceled Normal [facility] Comment on above: Order Comment: TEST RENAL FUNCTION PANEL WAS CANCELLED, 12/11/2022 22:21 Performed By: #### R ENAL #### [facility] [address] [place] [address] ANION GAP Canceled Normal [facility] Comment on above: Order Comment: TEST RENAL FUNCTION PANEL WAS CANCELLED, 12/11/2022 22:21 Performed By: #### R ENAL #### [facility] [address] [place] [address] BICARBONATE Canceled Normal [facility] Comment on above: Order Comment: TEST RENAL FUNCTION PANEL WAS CANCELLED, 12/11/2022 22:21 Performed By: #### R ENAL #### [facility] [address] [place] [address] CALCIUM Canceled Normal [facility] Comment on above: Order Comment: TEST RENAL FUNCTION PANEL WAS CANCELLED, 12/11/2022 22:21 Performed By: #### R ENAL #### [facility] [address] [place] [address] CHLORIDE Canceled Normal [facility] Comment on above: Order Comment: TEST RENAL FUNCTION PANEL WAS CANCELLED, 12/11/2022 22:21 Performed By: #### R ENAL #### [facility] [address] [place] [address] CREATININE Canceled Normal [facility] Comment on above: Order Comment: TEST RENAL FUNCTION PANEL WAS CANCELLED, 12/11/2022 22:21 Performed By: #### R ENAL #### [facility] [address] [place] [address] eGFR FEMALE Canceled Normal [facility] Comment on above: Order Comment: TEST RENAL FUNCTION PANEL WAS CANCELLED, 12/11/2022 22:21 Result Comment: CALC ULATIONS OF ESTIMATED GFR ARE PERFORMED USING THE 2020 CKD-EPI STUDY REFIT EQUATION WITHOUT THE RACE VARIABLE FOR THE IDMS-TRACEABLE CREATININE METHODS. https://jasn.asnjournals.org/content/earlyASN.009 1714259 Performed By: #### R ENAL #### [facility] [address] [place] [address] eGFR MALE Canceled Normal [facility] Comment on above: Order Comment: TEST RENAL FUNCTION PANEL WAS CANCELLED, 12/11/2022 22:21 Result Comment: CALC ULATIONS OF ESTIMATED GFR ARE PERFORMED USING THE 2020 CKD-EPI STUDY REFIT EQUATION WITHOUT THE RACE VARIABLE FOR THE IDMS-TRACEABLE CREATININE METHODS. https://jasn.asnjournals.org/content/earlyASN.387 7179774 Performed By: #### R ENAL #### [facility] [address] [place] [address] GLUCOSE Canceled Normal [facility] Comment on above: Order Comment: TEST RENAL FUNCTION PANEL WAS CANCELLED, 12/11/2022 22:21 Performed By: #### R ENAL #### [facility] [address] [place] [address] PHOSPHORUS Canceled Normal [facility] Comment on above: Order Comment: TEST RENAL FUNCTION PANEL WAS CANCELLED, 12/11/2022 22:21 Result Comment: The performance characteristics of phosphorus testing in heparinized plasma have been validated by the individual laboratory site where testing is performed. Testing on heparinized plasma is not approved by the FDA; however, such approval is not necessary. Performed By: #### R ENAL #### [facility] [address] [place] [address] POTASSIUM Canceled Normal [facility] Comment on above: Order Comment: TEST RENAL FUNCTION PANEL WAS CANCELLED, 12/11/2022 22:21 Performed By: #### R ENAL #### [facility] [address] [place] [address] SODIUM Canceled Normal [facility] Comment on above: Order Comment: TEST RENAL FUNCTION PANEL WAS CANCELLED, 12/11/2022 22:21 Performed By: #### R ENAL #### [facility] [address] [place] [address] UREA NITROGEN Canceled Normal [facility] Comment on above: Order Comment: TEST RENAL FUNCTION PANEL WAS CANCELLED, 12/11/2022 22:21 Performed By: #### R ENAL #### [facility] [address] [place] [address] ABO/RH GROUP TESTon 12-11-19 23 ABO TYPE A Normal [facility] Comment on above: Performed By: #### V ERAB #### [facility] [address] [place] [address] RH TYPE Positive Normal [facility] Comment on above: Performed By: #### V ERAB #### [facility] [address] [place] [address] Admission Risk Screen - Adul ton 12-11-2022 Admission Risk Screen - Adult Allergies: Allergies: DrugAllergiesUnable to Obtain: Ionic contrasts: Anaphylaxis Patient Verification: New W ID Band Applied in my Departmentno Type of ID Patient is WearingW wristband, but not applied here Patient Transferred from Other Facility ([facility], [facility],etc)no Patient Identity Verified Bypatient ID Band FULL Name, include Middle, spelling matches patient's ID used for verificationyes ID Band Matches Patient ID used for Verficationyes ID Band MRN Matches EMR MRNyes Visitor Restriction: Coronavirus Visitor Restriction: Reasonable restrictions to in-person visitors will be observed due to current coronavirus pandemic. Travel History: COVID-19 Screening Completedno exposure or symptoms(1) Travel or Exposure Past 30 DaysNO travel to International locations in the past 30 days Ebola AlertFor Ebola-like Symptoms: Isolate Patient and Notify Provider/Golf Coach For Contact: Notify Provider/Golf Coach Advance Directive: Advance Directive/DNRno Advance Directive Information Givenpatient/family declined [place] Fall Screen: History of falling (immediate or previous)no (0) Secondary Diagnosisyes (15) Intravenous Therapy/ Heparin/Saline Lockyes (20) Gait/Transferringimpaire d (20) Ambulatory Aidsnone/bedrest/nurse assist (0) Mental Statusoriented to own ability (0) Score: Low risk (<25). Moderate risk (25-44). High risk (>44).55 Hill InterventionsHIGH INTERVENTIONS *Low and Moderate Interventions Plus: * supervised toileting at all times, strongly recommended: gait belts with ambulation Family Violence Screen: Are you or have you been threatened or abused physically, emotionally, or sexually by anyoneno Do you feel UNSAFE going back to the place where you are livingno Clinical assessment: Are there any apparent signs of injuries/behaviors that could be related to abuse/neglectno Social Service Consult for abuse/neglect needed this visitno Functional Screen: Functional Screen: In the recent/past 2-4 weeks, patient or family have noticedno issues that require a speech/language consult at this time AM-PAC- Basic Mobility/Daily Activity: Patient baseline bedboundyes Learning Assessment (Patient): Patient is Able to be Assessed for Learningyes Factors Influencing Readiness to Learninformation requested Factors that Impact Ability to Learnnone Devices/Methods Used to Communicatenone Learning Preferencesaudio Cultural Considerationsnone Developmental Considerationsnone Rastafarian Considerationsnone Learning Assessment (Other Learner): Other learner availableno Depression Screen: During the past month, have you often been bothered by feeling down, depressed or hopelessno During the past month, have you often had little interest or pleasure in doing thingsno Have you had any thoughts of harming anyone elseno (1) [place] Suicide: Risk Screen Not Applicable/Able to Answerable to be screened In the Past Month: Have you wished you were or could go to sleep and not wake upno(1) In the Past Month: Have you had any actual thoughts of killing yourself no(1) Lifetime: Have you ever done, started to do, or prepared to do anything to end your lifeno [place] Suicide Risknegative Adult Nutrition Screen: Have you recently lost weight without tryingno Have you been eating poorly because of a decreased appetiteno Malnutrition Screening Tool Score0 Malnutrition Screening Tool RiskMST = 0 or 1 Not at risk. Eating well with little or no weight loss Nutrition Consult needed this visitno Can Patient Participate in Room Serviceyes, with assistance Patient requires Paper Dishes/Plastic Utensilsno Pain Screen: Pain Scalenumerical 0-10 Pain Scale Educationteaching provided Current Pain Level0 = None Acceptable Pain Level0 = None Expression of Pain (nonverbal)none Chronic Painno Spiritual Screen: Are there any cultural, spiritual, christianity practices/values/needs that are important for us to knowno CAGE: Is this an injured patient at a Tra[place] Center [place]/[place] /[place]): no Vaccinations: Vaccination - Influenza Vaccination Screen: Is it flu season (between and February 11)Yes Screening for identified contraindications to influenza vaccinationpatient already received vaccine this season Vaccination - Pneumonia Vaccination Screen: Patient has received a previous pneumonia vaccine:no/unknown... Immunocompetent persons with underlying chronic conditions or reside in residential care facilitiesnone of these conditions Persons with Functional or Anatomic Asplenianone of these conditions Immunocompromised Personsnone of these conditions Pneumonia vaccine NOT indicated due to:patient DOES NOT have a condition that indicates vaccination Chapo: Skin - Chapo Scale: Chapo: Sensory Perception (response to environment)(2) very limi (more content not included)... Normal [facility] BN ADULT SHUNT SERIESon 11-15 ADULT SHUNT SERIES Patient Name: NISHAMINAJIAN STUDY: ADULT SHUNT SERIES; 12/11/2022 2:33 pm INDICATION: evaluate shunt . COMPARISON: None. ACCESSION NUMBER(S): [id number] ORDERING CLINICIAN: DENA JACOBO FINDINGS: Shunt series, five views SOFT SHOE DANCER shunt place extending over the right neck, the right hemithorax and right aspect of the abdomen and terminating over the pelvis. Shunt catheter is intact without kinking or discontinuity. Gaseous distention of the bowel is present including both large and small bowel. The lungs are clear. IMPRESSION: Intact SOFT SHOE DANCER shunt catheter without kinking or discontinuity. Gaseous distention of bowel loops throughout the abdomen Electronically signed by: ADAM PALACIOS MD Normal [facility] CBC AND DIFFERENTIALon 12-11 % AUTOMATED IMMATURE GRAN 0.1 % Normal 0.0 - 0.9 [facility] Comment on above: Result Comment: Nita ture Granulocyte Count (IG) includes promyelocytes, myelocytes and metamyelocytes but does not include bands. Percent differential counts (%) should be interpreted in the context of the absolute cell counts (cells/L). Performed By: #### C BCDF #### [facility] [address] [place] [address] Basophils (Bld) [#/Vol] 0.03 10*3/uL Normal 0.00 - 0.1 0 [facility] Comment on above: Performed By: #### C BCDF #### [facility] [address] [place] [address] Basophils/100 WBC (Bld) 0.4 % Normal 0.0 - 2.0 [facility] Comment on above: Performed By: #### C BCDF #### [facility] [address] [place] [address] Eosinophils (Bld) [#/Vol] 0.06 10*3/uL Normal 0.00 - 0.70 [facility] Comment on above: Performed By: #### C BCDF #### [facility] [address] [place] [address] Eosinophils/100 WBC (Bld) 0.8 % Normal 0.0 - 6.0 [facility] Comment on above: Performed By: #### C BCDF #### [facility] [address] [place] [address] Erythrocyte distribution width (RBC) [Ratio] 13.3 % Normal 11.5 - 14.5 [facility] Comment on above: Performed By: #### C BCDF #### [facility] [address] [place] [address] Hematocrit (Bld) [Volume fraction] 36.4 % Low 41.0 - 52.0 [facility] Comment on above: Performed By: #### C BCDF #### [facility] [address] [place] [address] Hemoglobin (Bld) [Mass/Vol] 12.9 g/dL Low 13.5 - 17.5 [facility] Comment on above: Performed By: #### C BCDF #### [facility] [address] [place] [address] Lymphocytes (Bld) [#/Vol] 1.84 10*3/uL Normal 1.20 - 4.80 [facility] Comment on above: Performed By: #### C BCDF #### [facility] [address] [place] [address] Lymphocytes/100 WBC (Bld) 23.0 % Normal 13.0 - 44.0 [facility] Comment on above: Performed By: #### C BCDF #### [facility] [address] [place] [address] MCHC (RBC) [Mass/Vol] 35.4 g/dL Normal 32.0 - 36.0 [facility] Comment on above: Performed By: #### C BCDF #### [facility] [address] [place] [address] MCV (RBC) [Entitic vol] 83 fL Normal 80 - 100 [facility] Comment on above: Performed By: #### C BCDF #### [facility] [address] [place] [address] Monocytes (Bld) [#/Vol] 1.08 10*3/uL High 0.10 - 1.0 0 [facility] Comment on above: Performed By: #### C BCDF #### [facility] [address] [place] [address] Monocytes/100 WBC (Bld) 13.5 % Normal 2.0 - 10.0 [facility] Comment on above: Performed By: #### C BCDF #### [facility] [address] [place] [address] Neutrophils (Bld) [#/Vol] 4.98 10*3/uL Normal 1.20 - 7.70 [facility] Comment on above: Performed By: #### C BCDF #### [facility] [address] [place] [address] Neutrophils/100 WBC (Bld) 62.2 % Normal 40.0 - 80.0 [facility] Comment on above: Performed By: #### C BCDF #### [facility] [address] [place] [address] NUCLEATED RBC 0.0 /100 WBC Normal 0.0-0.0 [facility] Comment on above: Performed By: #### C BCDF #### [facility] [address] [place] [address] Platelets (Bld) [#/Vol] 358 10*3/uL Normal 150 - 450 [facility] Comment on above: Performed By: #### C BCDF #### [facility] [address] [place] [address] RBC 4.39 x10E12/L Low 4.50 - 5.90 [facility] Comment on above: Performed By: #### C BCDF #### [facility] [address] [place] [address] WBC (Bld) [#/Vol] 8.0 10*3/uL Normal 4.4 - 11.3 [facility] Comment on above: Performed By: #### C BCDF #### [facility] [address] [place] [address] COAGULATION SCREENon 023 aPTT Coag (Bld) [Time] 29 s Normal 26 - 39 [facility] Comment on above: Result Comment: THE APTT IS NO LONGER USED FOR MONITORING UNFRACTIONATED HEPARIN THERAPY. FOR MONITORING HEPARIN THERAPY, USE THE HEPARIN ASSAY. Performed By: #### C OAGS ####[id number] [place] [address] PT Coag (PPP) [Time] 12.4 s Normal 9.8 - 13.4 [facility] Comment on above: Performed By: #### C OAGS ####[id number] [place] [address] PT, INR 1.1 Normal 0.9 - 1.1 [facility] Comment on above: Performed By: #### C OAGS ####[id number] [place] [address] CORONAVIRUS 2019 BY PCRon SARS-CoV-2 (COVID-19) RNA MOHINI+probe Ql (Unsp spec) Canceled Normal [facility] Comment on above: Order Comment: TEST CORONAVIRUS 2019 BY PCR WAS CANCELLED, 12/11/2022 14:58 Result Comment: . This test has received FDA Emergency Use Authorization (EUA) and has been verified by [facility] ([facility]). This test is only authorized for the duration of time that circumstances exist to justify the authorization of the emergency use of in vitro diagnostic tests for the detection of SARS-CoV-2 virus and/or diagnosis of COVID-19 infection under section 564(b)(1) of the Act, 21 U.S.C. 360bbb-3(b)(1), unless the authorization is terminated or revoked sooner. [facility] is certified under CLIA-88 as qualified to perform high complexity testing. Testing is performed in the [facility] [place] [address] [place] [address]. SARS-CoV-2/Flu/RSV Multiplex Test: Fact sheet for providers: https://www.fda.gov/media/462641/download Fact sheet for patients: https://www.fda.gov/media/635948/download Performed By: #### C BCDF #### [facility] [address] [place] [address] Lab Specimen Source Nasal, Nasopharyngeal Normal [facility] Comment on above: Order Comment: TEST CORONAVIRUS 2019 BY PCR WAS CANCELLED, 12/11/2022 14:58 Performed By: #### C BCDF #### [place] [address] CORONAVIRUS 2019, SCREEN ASY MPTOMATICon 12-11-2022 SARS-CoV-2 (COVID-19) RNA MOHINI+probe Ql (Unsp spec) Not detected Normal Not Detected [facility] Comment on above: Result Comment: . This test has received [facility] Emergency Use Authorization (EUA) and has been verified by [facility] ([facility]). This test is only authorized for the duration of time that circumstances exist to justify the authorization of the emergency use of in vitro diagnostic tests for the detection of SARS-CoV-2 virus and/or diagnosis of COVID-19 infection under section 564(b)(1) of the Act, 21 U.S.C. 360bbb-3(b)(1), unless the authorization is terminated or revoked sooner. [facility] is certified under CLIA-88 as qualified to perform high complexity testing. Testing is performed in the [facility] located at [address] [place] [address]. SARS-CoV-2/Flu/RSV Multiplex Test: Fact sheet for providers: https://www.fda.gov/media/284075/download Fact sheet for patients: https://www.fda.gov/media/695684/download Performed By: #### C BCDF #### [place] [address] Lab Specimen Source Nasal, Nasopharyngeal Normal [facility] Comment on above: Performed By: #### C BCDF #### [address] [place] [address] SARS-CoV-2 (COVID-19) RNA MOHINI+probe Ql (Unsp spec) Canceled Normal [facility] Comment on above: Order Comment: TEST CORONAVIRUS 2018, SCREEN ASYMPTOMATIC WAS CANCELLED, 12/11/2022 10:58 Result Comment: . This test has received FDA Emergency Use Authorization (EUA) and has been verified by [facility] ([facility]). This test is only authorized for the duration of time that circumstances exist to justify the authorization of the emergency use of in vitro diagnostic tests for the detection of SARS-CoV-2 virus and/or diagnosis of COVID-19 infection under section 564(b)(1) of the Act, 21 U.S.C. 360bbb-3(b)(1), unless the authorization is terminated or revoked sooner. [facility] is certified under CLIA-88 as qualified to perform high complexity testing. Testing is performed in the [facility] located at [address] [place] [address]. SARS-CoV-2/Flu/RSV Multiplex Test: Fact sheet for providers: https://www.fda.gov/media/061374/download Fact sheet for patients: https://www.fda.gov/media/618831/download Performed By: #### C OVSC #### [facility] [address] [place] [address] Lab Specimen Source Nasal, Nasopharyngeal Normal [facility] Comment on above: Order Comment: TEST CORONAVIRUS 2019, SCREEN ASYMPTOMATIC WAS CANCELLED, 12/11/2022 10:58 Performed By: #### C OVSC #### [facility] [address] [place] [address] SARS-CoV-2 (COVID-19) RNA MOHINI+probe Ql (Unsp spec) Canceled Normal [facility] Comment on above: Order Comment: TEST CORONAVIRUS 2018, SCREEN ASYMPTOMATIC WAS CANCELLED, 12/11/2022 09:34 Result Comment: . This test has received FDA Emergency Use Authorization (EUA) and has been verified by [facility] ([facility]). This test is only authorized for the duration of time that circumstances exist to justify the authorization of the emergency use of in vitro diagnostic tests for the detection of SARS-CoV-2 virus and/or diagnosis of COVID-19 infection under section 564(b)(1) of the Act, 21 U.S.C. 360bbb-3(b)(1), unless the authorization is terminated or revoked sooner. [facility] is certified under CLIA-88 as qualified to perform high complexity testing. Testing is performed in the [facility] located at [address] [place] [address]. SARS-CoV-2/Flu/RSV Multiplex Test: Fact sheet for providers: https://www.fda.gov/media/744149/download Fact sheet for patients: https://www.fda.gov/media/958779/download Performed By: #### V FPA4 #### [facility] [address] [place] [address] Lab Specimen Source Nasal, Nasopharyngeal Normal [facility] Comment on above: Order Comment: TEST CORONAVIRUS 2019, SCREEN ASYMPTOMATIC WAS CANCELLED, 12/11/2022 09:34 Performed By: #### V FPA4 #### [facility] [id number] [place] [address]. [place] [address] Consult - Neuro-Neurosurgery on 12-11-2022 Consult - Neuro-Neurosurgery Service: Service: Service: Surgery Consult: Consult requested by (Attending Name): Von Sanchez Reason: possible SOFT SHOE DANCER shunt externalization for OR tomorrow History of Present Illness: History Present Illness: HPI: Jian Altamirano is a 57 yr old M with h/o HTN, HLD, seizures, gastroparesis, prior small bowel obstructions, spina bifida c/b hydrocephalus s/p SOFT SHOE DANCER shunt (last revised 17 yrs ago), who presents with abdominal pain and bilious emesis and CT CAP poss bowel obstruction. Neurosurgery was consulted due to concern for distal shunt in effected abdomen. The patient's radiographic findings were personally reviewed and the following significant findings were identified: CTH demonstrating thin ventricles. Shunt series without obvious kinking or disconnection. Patient denies any new neurologic complaints. Denies headache. Denies new weakness/numbness/parast hesias. Denies nausea/vomiting. No visual changes. Denies any fever/chills. PMH: as above PSH: as above SH: lives with sibling at baseline FH: non contributory Allergies: reviewed and as listed in EMR ROS: 10 point ROS NEGATIVE other than per above HPI. EXAM: NAD, AOx3, no aphasia or dysarthria, normal fund of knowledge Cranial Nerves II-XII: VFF, PERRL, EOMI, Face Symm, Facial SILT, Palate/Tongue midline and symmetric Motor: Follows commands x4 antigravity in uppers Sensation: SILT throughout all extremities DTRS: 2+ Throughout, No Hoffmans or Clonus Gen: NAD Chest wall rise symmetric Carotid pulses 2+ and symmetric bilaterally Skin warm/dry with no visible lesions No pitting edema Allergies: DrugAllergiesUnable to Obtain: Ionic contrasts: Anaphylaxis Assessment/Recommendatio ns: Assessment: Assessment: Jian Altamirano is a 57 yr old M with h/o HTN, HLD, seizures, gastroparesis, prior small bowel obstructions, spina bifida c/b hydrocephalus s/p SOFT SHOE DANCER shunt (last revised 17 yrs ago), who presents with abdominal pain and bilious emesis and CT CAP poss bowel obstruction. Neurosurgery was consulted due to concern for distal shunt in effected abdomen. The patient's radiographic findings were personally reviewed and the following significant findings were identified: CTH demonstrating thin ventricles. Shunt series without obvious kinking or disconnection. Recommendations: no indication for shunt externalization at this time if patient goes to OR for abdominal surgery please page neurosurgery will continue to follow Consult Status: Consult Order ID: [id number] Attestation: Note Completion: I am a: Resident/Fellow Attending AttestationI saw and evaluated the patient. I personally obtained the giraldo and critical portions of the history and physical exam or was physically present for giraldo and critical portions performed by the resident/fellow. I reviewed the resident/fellows documentation and discussed the patient with the resident/fellow. I agree with the resident/fellows medical decision making as documented in the note. I personally evaluated the patient [id number] Electronic Signatures: Dena Jacobo (Resident)) (Signed 11-Dec-2022 16:46) Authored: Service, History of Present Illness, Allergies, Assessment/Recommendatio ns, Note Completion Maddie Kent) (Signed 12-Dec-2022 07:29) Authored: Note Completion Co-Signer: Service, History of Present Illness, Allergies, Assessment/Recommendatio ns, Note Completion Last Updated: 12-Dec-2022 07:29 by Maddie Kent) Normal [facility] Consult-Acute Care Surgeryon 12-11-2022 Consult-Acute Care Surgery Service: Service: Acute Care Surgery Consult: Consult requested by (Attending Name): Emergency Medicine History of Present Illness: HPI: JIAN ALTAMIRANO is a 57 year old Male with Hx congenital hydrocephalus s/p remote SOFT SHOE DANCER shunt, bowel dysmotility, neurogenic bladder, HTN, HLD, seizures who presented to OSH with 1 day of increasing abdominal pain. CT was concerning for possible sigmoid volvulus and he was transferred to [facility]. Of note, he lives at home with help from his family. He requires daily enemas and suppositories to promote bowel movements. He has had small bowel obstructions in the past but has never needed surgery for them. On interview, he feels slightly better since NG placement but his abdominal pain is continuing. PMH: congenital hydrocephalus, gastroparesis, HTN, hyponatremia, seizures, prior smal bowel obstructions PSH: remote SOFT SHOE DANCER shunt Allergies: None FHX: noncontributorty Social history: no alcohol / tobacco / illicits Allergies: No Known Allergies: Objective: Objective Information: T PRBPMAPSpO2 [id number]/9096% Date/Time12/11 9: 10: 10: 10: 10:24 Range(36.8C - 36.8C ) (91 - 94 ) (18 - 18 ) (129 - 141 )/ (90 - 93 ) (96% - 96% ) Physical Exam Narrative: Physical Exam: General: uncomfortable but in no acute distress, non-toxic appearing Head: normocephalic, atraumatic, symmetric, NG tube in place draining bilious output Respiratory: non labored breathing on room air Cardiovascular: regular rate Abdomen: soft, slightly distended, mildly tender in lower abdomen Extremities: no cyanosis, clubbing or edema Skin: no obvious lesions or rashes Psych: appropriate mood and behavior Assessment: JIAN ALTAMIRANO is a 57 year old Male with Hx congenital hydrocephalus s/p remote SOFT SHOE DANCER shunt, bowel dysmotility, neurogenic bladder, HTN, HLD, seizures who presented to OSH with 1 day of increasing abdominal pain. CT was concerning for possible sigmoid volvulus and he was transferred to [facility]. After discussion with colorectal surgery team, operative intervention may be necessary if GI unable to decompress endoscopically. If surgery is required, colorectal team will take lead. ACS available to assist if needed. Plan: - f/u GI recs for possible endoscopic decompression - f/u colorectal surgery recs - ACS available to assist if needed - NPO, maintain NGT - Rest per ED Seen with attending: Dr. Jazzmine Cunha MD Acute Care Surgery - PGY-1 Pager [phone] Attestation: Note Completion: I am a: Resident/Fellow Attending AttestationI saw and evaluated the patient. I personally obtained the giraldo and critical portions of the history and physical exam or was physically present for giraldo and critical portions performed by the resident/fellow. I reviewed the resident/fellows documentation and discussed the patient with the resident/fellow. I agree with the resident/fellows medical decision making as documented in the note. I personally evaluated the patient [id number] Comments/ Additional Findings Defer to colo-rectal and gastroenterology services management plan. We will be available as needed. Electronic Signatures: Arian Cunha (Resident)) (Signed 11-Dec-2022 12:05) Authored: Service, History of Present Illness, Allergies, Objective, Assessment/Recommendatio ns, Note Completion Teto Dover) (Signed 11-Dec-2022 16:31) Authored: Service, Note Completion Co-Signer: Service, History of Present Illness, Allergies, Objective, Assessment/Recommendatio ns, Note Completion Last Updated: 11-Dec-2022 16:31 by Teto Dover) Normal [facility] Consult-Enterostomal Therapy on 12-11-2022 Consult-Enterostomal Therapy Service: Service: Enterostomal Therapy Consult: Reason: preoperative education History of Present Illness: HPI: JIAN ALTAMIRANO is a 57 year old Male Review Family/Social History and ROS: Social History: Smoking Status: never smoker (1) Alcohol Use: denies(1) Drug Use: denies (1) Allergies: DrugAllergiesUnable to Obtain: Ionic contrasts: Anaphylaxis Assessment: Marked L side of abdomen for possible colostomy . Marked with black permanent marker on flat part of abd visible while sitting and simulating sitting in a wheelchair. Reviewed basic GI function and basic ostomy care. Showed sample pouch. Gave and reviewed booklet Preparing for Ostomy Surgery". Patient reaction: Patient listened to education intently, no questions were asked. Patient hopeful not to need an ostomy. Patient's sister assists with the patient's care, but was not at bedside after multiple visits to patient to try to see her. Plan: will follow if stoma placed. Shelby Moses, MSN, RN, CWCN, COCN Pager [phone] [employer] Electronic Signatures: Shelby Moses (BYRON) (Signed 11-Dec-2022 18:17) Authored: Service, History of Present Illness, Review Family/Social History and ROS, Allergies, Assessment/Recommendatio ns, Note Completion Last Updated: 11-Dec-2022 18:17 by Shelby Moses (BYRON) References: 1. Data Referenced From Patient Profile - Adult v2" 11-Dec-2022 16:19 Normal [facility] Consult-Gastroenterologyon 0 12-11-2022 Consult-Gastroenterology Service: Service: Gastroenterology Consult: Consult requested by (Attending Name): Von Sanchez Reason: Sigmoid volvulus. History of Present Illness: Admission Reason: Sigmoid volvulus. HPI: 57 yo, PMH of congenital hydrocephalus s/p SOFT SHOE DANCER shunt, chronic indwelling catheter, gastroparesis, prior bowel obstructions, HTN, seizures, who presented as a transfer from [place] due to a possible sigmoid volvulus. GI is consulted for the same. Chart review limited as patient is new to system, per RIE care is predominantly in [place]. Noted CTAP concerning for SBO in 09/2022. CT from 12/10/22 "GI Tract: There is marked distention of the stomach, multiple small bowel loops and the colon. The colon is dilated up to 6.9 cm in the transverse segment. The small bowel is dilated up to 4.6 cm. The sigmoid colon appears to rotate around an axis of swirling vessels with short segment narrowing of the proximal and distal sigmoid colon in the mid abdomen (image 32, series 601). On interview, patient reports he had some abdominal pain. His stomach is gurgly and filled with gas. Does not report much emesis prior to coming in, which he reports is different from his prior SBOs. Some collateral was obtained from his sister. He has had problems with motility since . He is on suppositories/ Enemas daily at this point. Last 5-6 years has had obstructions, typically conservatively managed, but needed multiple hospitalizations. He had a motility specialist see him at [facility] as well, not started on a motility agent as well. This is the first time he has had issues with large intestine per her. Reports she placed a "flatus tube" with 250-300cc output yesterday. 12 point ROS as above, otherwise negative. PMH/PSH As above SH No alcohol, smoking, illicit drug use. FH No GI malignancies. Allergies: DrugAllergiesUnable to Obtain: Ionic contrasts: Anaphylaxis Objective: Objective Information: T PRBPMAPSpO2 [id number]/9095% Date/Time12/11 9: 12: 12: 12: 12:16 Range(36.8C - 36.8C ) (89 - 94 ) (17 - 18 ) (129 - 141 )/ (90 - 93 ) (95% - 96% ) Physical Exam by System: Constitutional: NAD, NG to suction. Eyes: EOMI ENMT: MMM Head/Neck: NC, AT Respiratory/Thorax: CTAB Cardiovascular: RRR Gastrointestinal: Soft, NT, ND, +BS Musculoskeletal: Normal bulk Extremities: No cyanosis, pitting edema Neurological: A&O x3 Psychological: Appropriate mood and behavior Skin: No rashes Refresh Home Medications List: Select to Refresh Home Medication ListRefresh Home Medications Medications: Medications: Continuous Medications -------- No continuous medications are active Scheduled Medications -------- 1. diphenhydrAMINE Injectable: 50 mg IntraVenous Push Once 2. Gastrografin 15 mL - No Flavoring - in 450 mL Clear Fluid (Pre-Exam): 1 dose(s) Oral Once 3. Iohexol (Omnipaque 350-Radiology Contrast): 80.85 mL IntraVenous Push Once 4. methylPREDNISolone Sodium Succinate Injectable: 40 mg IntraVenous Push Every 4 Hours PRN Medications -------- No PRN medications are active Recent Lab Results: Results: I have reviewed these laboratory results: Complete Blood Count + Differential 11-Dec-2022 09:28:00 ResultValue White Blood Cell Count 8.0 Nucleated Erythrocyte Count 0.0 Red Blood Cell Count 4.39 L HGB 12.9 L HCT 36.4 L MCV 83 MCHC 35.4 PLT 358 RDW-CV 13.3 Neutrophil % 62.2 Immature Granulocytes % 0.1 Lymphocyte % 23.0 Monocyte % 13.5 Eosinophil % 0.8 Basophil % 0.4 Neutrophil Count 4.98 Lymphocyte Count 1.84 Monocyte Count 1.08 H Eosinophil Count 0.06 Basophil Count 0.03 Renal Function Panel 11-Dec-2022 09:28:00 ResultValue Glucose, Serum 106 H NA 127 L K 4.0 CL 98 Bicarbonate, Serum 24 Anion Gap, Serum 9 L BUN 13 CREAT 0.70 GFR Male >90 Calcium, Serum 8.1 L Phosphorus, Serum 2.9 ALB 3.4 Coagulation Screen 11-Dec-2022 09:28:00 ResultValue Prothrombin Time, Plasma 12.4 International Normalized Ratio, Plasma 1.1 Activated Partial Thromboplastin Time 29 Radiology Results: Results: Images of outside CT abdomen personally reviewed by us. Assessment: 57 yo, PMH of congenital hydrocephalus s/p SOFT SHOE DANCER shunt, chronic indwelling catheter, gastroparesis, prior bowel obstructions, HTN, seizures, who presented as a transfer from [place] due to a possible sigmoid volvulus. GI is consulted for the same Imaging at this is not typical of a sigmoid volvulus, given significant dilation of small bowel, large bowel, as well as stomach, suspect a component of chronic dysmotility. Does have a large stool burden in a high lying rectum, possibly leading to region of sigmoid narrowing from stool burden in rectum. Would recommend enemas to clear out stool burden, an (more content not included)... Normal [facility] Discharge Planning [id number] 0 12-11-2022 Discharge Planning Note2 Discharge Plann ing: Discharge Barriersnone Planned Dispositionhome with homecare Discharge DestinationResume [facility] [place] of Choice Explainedyes Anticipated Discharge [id number] Discharge Planning 12/11/2022 1600 Patient arrived to floor from ED. Patient transferred from [facility]. Patient lives at home alone but receives 24 hour care from various members of patient's support team. Sister at bedside. Requesting information regarding POA. 12/13/22 2302 Transitional Care Coordination Progress Note: Patient discussed during interdisciplinary rounds. Team members present: [employer] HAND FINISHER, SW, RD, TCC Plan per Medical/Surgical team: Pt has a hx of bladder and bowel problems (chronic constipation), seizures and HTN. CRS is ordering a vigorous bowel regime and pt is to start a clear liquid diet. He lives in [place] and is active with [facility], not in [facility]. His sister and family assist him with his care. Status: Inpatient Payor source: [facility], [facility] Discharge disposition: Resume HC Potential Barriers: None. ADOD: two or 3 days Maddie Brooks, DANGELO Doc Halo 12/14/22 Extension Edger Note: Spoke to pt a the bedside and confirmed pt receives [facility]. [facility] was contacted and they confirmed pt was receiving RN services with Dr. Clifford Estes following. Referral to resume home care sent in [facility]. Pt may be ready for discharge today if pt has family to assist him home. Maddie Hall RN TCC Assessment: Discharge Planning Assessment [id number] Discharge Planning Assessment Completed byDIAMOND Magana RN Extension Edger (Doc Halo) Primary Contact Name and NumberSister Darrion [phone] Prior Level of Jxeneqznjho08/7 care from family Lives Withalone; Patient lives alone but receives 24 hour care at home from various members of support team(1) Living Arrangementshouse(1) Stated Reason for Admissionabd pain(1) Arrived Fromhospital (1) PCPunsure Preferred Pharmacy Name/LocationBolpending [facility] Recent Falls/ Injury/ Need Assist with AmbulationPatient states they feel safe at home and denies any recent falls. DME Supplier Name/Numbern/a Home Care Agency/Support ServicesPatient states he is active [facility] Diabetic/Supplies Neededn/a Hemodialysis Schedulen/a Resource/Environmental Concernsnone(1) Anticipated Transition [place](1) Services Anticipated at Transitioncommunity health care InsuranceAnthem Dual Adv Anticipated Changes Related to Illnessnone Equipment Needed After Dischargenone Anticipated Discharge Facility/Level of Care NeedsHome Care - Resume/Unrelated Discharge Planning CommentsPatient states medications are affordable/obtainable. Patient states family drive him to appts. Patient states they feel safe at home and denies any recent falls. Peggy Paz RN Extension Edger (office)[phone] Social Determinants of Health Identifiedn/a Special Considerationsn/a Transportation Home Who/Sister Rocha Medication Adherence/Afford/Obtainy es O2 LPMn/a Home O2 Suppliern/a Electronic Signatures: maddie hsu (RN) (Signed 11-Dec-2022 16:35) Authored: Discharge Planning, Assessment Mabel Freeman (RN) (Signed 15-Dec-2022 02:45) Authored: Discharge Planning Maddie Hall (CN) (Signed 14-Dec-2022 11:22) Authored: Discharge Planning Maddie Brooks (RN) (Signed 13-Dec-2022 13:11) Authored: Discharge Planning, Assessment Peggy Paz (RN) (Signed 12-Dec-2022 11:30) Authored: Discharge Planning, Assessment Last Updated: 15-Dec-2022 02:45 by Mabel Freeman (RN) References: 1. Data Referenced From Patient Profile - Adult v2" 11-Dec-2022 16:19 Normal [facility] Flexible Sigmoidoscopyon Flexible sigmoidoscopy PATIENTNAME Patient Name: Jian Altamirano EXAMDATE Procedure Date: 12/11/2022 8:04 PM PATIENTID PATIENTACCOUNTNUM PATIENTDOB Date of : 1965 ADMITTYPE Admit Type: Inpatient PATIENTROOM Site: Travel ETHNICITY Ethnicity: Not or RACE Race: White PROVDR Attending MD: Emerson Reyes MD, SHAORN, [id number] ENDOPROCEDURENAME Procedure: Inpatient flexible sigmoidoscopy performed in the [place] INDICATION Indications: Abnormal CT of the GI tract, Suspected volvulus COMORBID Comorbidities: Hypertension, Generalized degenerative joint disease, History of seizure disorder PTPROFILE Patient Profile: 57 yo, PMH of congenital hydrocephalus s/p SOFT SHOE DANCER shunt, chronic indwelling catheter, gastroparesis, prior bowel obstructions, HTN, seizures, who presented due to a possible sigmoid volvulus PRIMARYPROVIDER Providers: Emerson Reyes MD, SAHRON (Doctor), Margie Perez MD (Fellow) EDREFPROVIDER Referring: Maddie Thornton MD CURRENT_MEDS Medicines: General Anesthesia, See the Anesthesia note for documentation of the administered medications COMPLIC Complications: No immediate complications. ENDOPROCEDURETEXT Procedure: Pre-Anesthesia Assessment: - Prior to the procedure, a History and Physical was performed, and patient medications and allergies were reviewed. The patient is unable to give consent secondary to the patient being legally incompetent to consent. The risks and benefits of the procedure and the sedation options and risks were discussed with the patient's sister. All questions were answered and informed consent was obtained. Patient identification and proposed procedure were verified by the physician, the nurse, the anesthesiologist, the manager integrated and the help desk technician in the operating room. Mental Status Examination: alert and oriented. Airway Examination: Mallampati Class II (the uvula but not tonsillar pillars visualized). Respiratory Examination: clear to auscultation. CV Examination: normal. Prophylactic Antibiotics: The patient does not require prophylactic antibiotics. Prior Anticoagulants: The patient has taken no anticoagulant or antiplatelet agents. ASA Grade Assessment: III - A patient with severe systemic disease. After reviewing the risks and benefits, the patient was deemed in satisfactory condition to undergo the procedure. The anesthesia plan was to use general anesthesia. Immediately prior to administration of medications, the patient was re-assessed for adequacy to receive sedatives. The heart rate, respiratory rate, oxygen saturations, blood pressure, adequacy of pulmonary ventilation, and response to care were monitored throughout the procedure. The physical status of the patient was re-assessed after the procedure. After obtaining informed consent, the endoscope was passed under direct vision. Throughout the procedure, the patient's blood pressure, pulse, and oxygen saturations were monitored continuously. The adult colonoscope was introduced through the anus and advanced to the left transverse colon. The flexible sigmoidoscopy was accomplished without difficulty. The patient tolerated the procedure. The quality of the bowel preparation was poor. FINDING Findings: The lumen of the rectum, sigmoid colon, descending colon and distal transverse colon was moderately dilated and redundant. Copious quantities of semi-liquid semi-solid solid stool was found in the entire colon, interfering with visualization. Lavage of the area was performed using copious amounts of sterile water, resulting in incomplete clearance with fair visualization. There is no endoscopic evidence of mass, stricture, colitis or volvulus in the sigmoid colon. SEDATION Moderate Sedation: N/A IMPRESS Impression: - Dilated in the rectum, in the sigmoid colon, in the descending colon and in the distal transverse colon with redundant colon consistent with chronic colonic dysmotility. - Stool in the entire examined colon. - No specimens collected. EBL Estimated Blood Loss: Estimated blood loss: none. ENDORECOMMENDATION Recommendation: - Return patient to hospital fan for ongoing care. - Continue present medications. - The patient is not currently taking anticoagulant or antiplatelet agents. - Agressive bowel regimen to clear out extensive stool burden. - Repeat imaging PRN. Consider obtaining additional prior outside imaging results for comparison re: chronicity. - The findings and recommendations were discussed with the surgeon, Maddie Thornton MD, who was present during the procedure. - Follow up with Maddie Thornton MD for ongoing inpatient medical care. - Return to primary care physician at appointment to be scheduled. CPT_CODES Procedure Code(s): --- Professional --- 54437, Sigmoidos (more content not included)... Normal [facility] Influenza virus A and B and SARS-CoV-2 (COVID-19) Ag panel - Upper respiratory specimOrdered By: Dr. Schaffer on 12-11-2022 SARS-CoV-2 (COVID-19) RNA MOHINI+probe Ql (Resp) [facility] NR CT HEAD WO CONTRASTon NR CT HEAD WO CONTRAST Patient Name: JIAN ALTAMIRANO STUDY: CT HEAD WO CONTRAST; 12/11/2022 2:37 pm INDICATION: evaluate shunt, Lie Flat: Yes . COMPARISON: None. ACCESSION NUMBER(S): [id number] ORDERING CLINICIAN: DENA JACOBO TECHNIQUE: Noncontrast axial CT scan of head was performed. Angled reformats in brain and bone windows were generated. The images were reviewed in bone, brain, blood and soft tissue windows. FINDINGS: Changes of right posterior approach shunt catheter placement are evident, with the tip of the shunt terminating near the parenchyma of the medial left frontal lobe, to the left of midline of the expected location of the foramen of Monro. Somewhat dysmorphic ventricular system is not dilated. No abnormal extra-axial fluid collections are identified. Basal cisterns appear patent. Corpus callosum is not well seen, and may be atrophied or partially congenitally absent. Subtle attenuation changes are present in the periventricular and subcortical white matter of bilateral cerebral hemispheres, with newell-white differentiation otherwise intact. 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 Calvarium does not demonstrate any acute abnormalities. No depressed skull fracture is evident. Mastoid air cells and middle ear cavities are well aerated. Nonspecific soft tissue attenuation present in the external auditory canals bilaterally, left greater than right, is favored to represent cerumen but is incompletely characterized on current study. Mild mucosal thickening is present in the inferior maxillary sinuses bilaterally. IMPRESSION: 1. Changes of right posterior approach ventriculostomy shunt catheter, tip of which crosses the midline and appears to terminate near the anterior horn/body of left lateral ventricle, as detailed above. The ventricular system is somewhat dysmorphic in appearance, but nondilated. 2. No evidence of transcortical infarct, hemorrhage, or other acute intracranial abnormality. Electronically signed by: JONY REED MD Normal [facility] Order Reconciliationon 12-11 Order Reconciliation Page 1 Admission Reconciliation Document Reconciliation Type: Admission from ED requested on behalf of Clifford Coates (Resident) done by Clifford Coates ( (Resident)) Admission from ED - Reconciliation: 11-Dec-2022 13:23 by: Clifford Coates ( (Resident)) Additional Current Orders diphenhydrAMINE Injectable (BENADRYL)DOSE = 50 mg IntraVenous Push OnceClinician Notes: 1 hour PRIOR to contrast. Nursing please time dose based on discussion with radiology technicians. Enoxaparin SubCutaneous (LOVENOX)DOSE = 40 mg SubCutaneous Every 24 Hours Gastrografin 15 mL - No Flavoring - in 450 mL Clear Fluid (Pre-Exam) DOSE = 1 dose(s) Oral OnceClinician Notes: SELECT IF PATIENT IS DIABETIC OR IF ADMINISTERED THROUGH NASOGASTRIC TUBE Iohexol (Omnipaque 350-Radiology Contrast) (OMNIPAQUE)DOSE = 80.85 mL IntraVenous Push OnceCa.5 mL/Kg/DOSE x 53.9 Kg = 80.85 mL/Dose (Daily Total is 80.85 mL)LABS: Blood Urea Nitrogen, Serum,13,11-Dec-2022 10:07:26 Creatinine, Serum,0.70,11-Dec-2022 10:07:26 methylPREDNISolone Sodium Succinate Injectable (SOLU-MEDROL)DOSE = 40 mg IntraVenous Push Every 4 HoursCa mg/DOSE x 1 = 40 mg/Dose (Requested dose was 40 mg per Flat Dose) (Daily Total is 240 mg)Clinician Notes: Until contrast administered. Sodium Chloride 0.9% Infusion IV Bag Volume = 1,000 mL Run at: 75 mL/hr IntraVenous Sodium Chloride 0.9% Injectable Flush via Peripheral LineVolume = 10 mL IntraVenous Flush Every 8 Hours and as Needed Normal [facility] Patient Profile - Adult v2on 12-11-2022 Patient Profile - Adult v2 Profile: Initial Info: How to be AddressedPeter Spoken Language PreferredEnglish (1) Source of Informationpatient; family Stated Reason for Admissionabd pain Wants Family/Rep Notified of Admissionn/a; family present Notify PCPnotify PCP Informed of Patient Visiting Rightsyes Arrived Fromspital Patient Belongingsremains with patient Patient Belongings Remaining with Patientcell phone/electronics; clothing Medications Brought to Hospitalno General Health: Weight in kg54.4 kilogram(s)(2) Weight in dhk487.9 pound(s) Weight Methodactual (measured) Scale Typebed Height in cm159.9 centimeter(s)(3) Height in feet5 feet Height in inches2.99 inch(es) Height Methodstated BMI (kg/m2)21.276 square meter RSP Based Care: How would you like to participate in your careinformed decision making What is the number one concern for you during this hospitalizationanswers for abd pain What is the most important thing we can do to support you during this hospitalizationkeep comfortable/informed Is there anything we need to know to best care for youno Substance: Smoking Statusnever smoker (4) Alcohol Usedenies(4) Drug Usedenies (4) Health Mgmt: Symptoms/Conditions Managed at Homegastrointestinal; musculoskeletal; neurological Gastrointestinal Symptoms/Conditionsabdom inal pain; constipation; fecal incontinence Gastrointestinal Management Strategiesbowel program; medication therapy; incontinence garment/pad Gastrointestinal Managementnot managed Musculoskeletal Symptoms/Conditionsmobil ity limited Musculoskeletal Managementmanaged Neurological Symptoms/Conditionsseizu res Neurological Managementmanaged Relationship/Environ: Resource/Environmental Concernsnone Primary Source of Support/Comfortsibling(s ) Lives Withalone; Patient lives alone but receives 24 hour care at home from various members of support team Living Arrangementshouse Services Anticipated at Transitionnone Anticipated Transition [place] Significant IndicatorsComplete Information Review: Allergies, Home Meds and Significant Events have been Reviewed and Verified with Patient/Familyyes ALLERGY, INTOLERANCE, ADVERSE EVENT: Allergies: DrugAllergiesUnable to Obtain: Active Ionic contrasts: Contrast, Anaphylaxis, Active Electronic Signatures: maddie hsu (NEIL) (Signed 11-Dec-2022 16:32) Authored: Initial Info, General Health, RSP Based Care, Substance, Health Mgmt, Relationship/Environ, Additional Information Last Updated: 11-Dec-2022 16:32 by maddie hsu (NEIL) References: 1. Data Referenced From Triage - ED 11-Dec-2022 09:02 2. Data Referenced From 1. Vital Signs 11-Dec-2022 16:08 3. Data Referenced From 1. Vital Signs 11-Dec-2022 09:02 4. Data Referenced From History and Physical 11-Dec-2022 13:26 Normal [facility] Provider Note - ED v3on 11-15 Provider Note - ED v3 Provider Note: Chart Review: ED NOTES ED NOTES: HPI: Patient is a 57-year-old male with past medical history of congenital hydrocephalus status post SOFT SHOE DANCER shunt many years ago, chronic indwelling catheter, gastroparesis with previous bowel obstructions, hypertension, hyponatremia, seizures who presents the emergency department as a transfer from outside hospital due to sigmoid volvulus. Patient states that last night she began to have diffuse abdominal pain but was not having any significant nausea or vomiting. His last bowel movement was earlier that day after he received an enema. He did have a solid bowel movement the day before. Patient had an NG tube placed at the outside hospital and had 400 mL of fluid evacuated. Upon arrival here patient feels like his pain is improved but he is still slightly achy. Patient states that he has had bowel obstructions before and this seems less severe than previous. Patient is not have any concerns about his SOFT SHOE DANCER shunt. He denies headache, new weakness or numbness, vision changes. Patient denies fever, chills, headache, lightheadedness, chest pain, shortness of breath, cough, urinary symptoms, focal neurologic deficits. Past Medical History: congenital hydrocephalus status post SOFT SHOE DANCER shunt many years ago, chronic indwelling catheter, gastroparesis with previous bowel obstructions, hypertension, hyponatremia, seizures Past Surgical History: SOFT SHOE DANCER shunt Allergies: Per EMR Family History: denies family history pertinent to presenting problem Social History: Denies tobacco, alcohol, illicit drug use ROS: All systems were reviewed and negative except as mentioned above in HPI Physical Exam: Appearance: Alert, oriented , cooperative, in no acute distress. Well nourished & well hydrated. Skin: Intact, dry skin, no lesions, rash, petechiae or purpura. Eyes: PERRLA, EOMI, Eyelids without lesions. No scleral icterus. ENT: Hearing grossly intact, mucus membranes moist. Neck: Supple, Trachea at midline. Pulmonary: Clear bilaterally with good chest wall excursion. No rales, rhonchi or wheezing. No accessory muscle use or stridor. Cardiac: RRR, Normal S1, S2 without murmur, rub, gallop or extrasystole. Abdomen: Abdomen is slightly distended but nontender. No rebound or guarding. No CVA tenderness. Musculoskeletal: Full range of motion. no pain, edema, or deformity. Pulses full and equal Neurological: alert and oriented, no focal findings identified. Psychiatric: Appropriate mood and affect. Labs, imaging and meds ordered: please see orders Medical decision-making: Patient is a 57-year-old male with past medical history of congenital hydrocephalus status post SOFT SHOE DANCER shunt many years ago, chronic indwelling catheter, gastroparesis with previous bowel obstructions, hypertension, hyponatremia, seizures who presents the emergency department as a transfer from outside hospital due to sigmoid volvulus. Initial evaluation patient is afebrile, hemodynamically stable, nontoxic-appearing. Patient is clinically well-appearing and does have a distended abdomen but is relatively nontender. He already has an NG tube in for decompression. I reviewed imaging and I do note what appears to be a volvulus. At this point I consulted acute care surgery, colorectal surgery, GI. I performed a repeat set of labs. Labs are at patient's baseline or improved. After discussion between the teams it was decided that patient would be best served being admitted to colorectal surgery so patient was admitted at this time. Pt seen and discussed with Dr. Laura Zhang PGY-3 Emergency Medicine HISTORY OF PRESENTING ILLNESS JIAN is a 57 year old Male and was seen by me at 11-Dec-2022 09:02 for a chief complaint of abdominal pain . Other complaints include: pt presents to the ed as a acs transfer from [place]. pt complaining of a 1 day history of abdominal pain, nausea and vomiting. CT scan at [place] revealed a Sigmoid volvus with sbo . Triage Information: Most recent Vital Sign Value Date Temp (F): 98.4 12-11-2022 09:02 Temp (C): 36.8 12-11-2022 09:02 Heart Rate (beats/min): 94 12-11-2022 09:02 Respirations (breaths/min): 18 12-11-2022 09:02 SpO2 (%): 96 12-11-2022 09:02 BP Systolic (mm Hg): 141 12-11-2022 09:02 BP Diastolic (mm Hg): 93 12-11-2022 09:02 PAST MEDICAL HISTORY ALLERGIES/INTOLERANCES: No Known Allergies HEALTH HISTORY: No documented data. OUTPATIENT MEDICATIONS: Home Medications Review Status for Reconciliation: N/A Med Status: N/A No documented data. SIGNIFICANT EVENTS: Past Medical History Description:hydrocephalu s Description:htn Description:bladder diverticulum Description:bladder stones Description:UTI Description:gastroparesi s Description:seizures DISPOSITION Diagnosis/Annotation: ED Dx Name:Bowel obstruction Code:K56.609 Disposition: hospitalized Admit (more content not included)... Normal [facility] RENAL FUNCTION PANELon 12-11 Albumin [Mass/Vol] 3.4 g/dL Normal 3.4 - 5.0 [facility] Comment on above: Performed By: #### R ENAL ####[id number] [place] [address] Anion gap [Moles/Vol] 9 mmol/L Low 10 - 20 [facility] Comment on above: Performed By: #### R ENAL ####[id number] [place] [address] Calcium [Mass/Vol] 8.1 mg/dL Low 8.6 - 10.6 [facility] Comment on above: Performed By: #### R ENAL ####[id number] [place] [address] Chloride [Moles/Vol] 98 mmol/L Normal 98 - 107 [facility] Comment on above: Performed By: #### R ENAL ####[id number] [place] [address] Creatinine [Mass/Vol] 0.70 mg/dL Normal 0.50 - 1.30 [facility] Comment on above: Performed By: #### R ENAL ####[id number] [place] [address] eGFR MALE >90 Normal >90 [facility] Comment on above: Result Comment: CALC ULATIONS OF ESTIMATED GFR ARE PERFORMED USING THE 2020 CKD-EPI STUDY REFIT EQUATION WITHOUT THE RACE VARIABLE FOR THE IDMS-TRACEABLE CREATININE METHODS. https://jasn.asnjournals.org/content/early//ASN.810 3206466 Performed By: #### R ENAL ####[id number] [place] [address] Glucose [Mass/Vol] 106 mg/dL High 74 - 99 [facility] Comment on above: Performed By: #### R ENAL ####[id number] [place] [address] HCO3 (Bld) [Moles/Vol] 24 mmol/L Normal 21 - 32 [facility] Comment on above: Performed By: #### R ENAL ####[id number] [place] [address] Phosphate [Mass/Vol] 2.9 mg/dL Normal 2.5 - 4.9 [facility] Comment on above: Result Comment: The performance characteristics of phosphorus testing in heparinized plasma have been validated by the individual laboratory site where testing is performed. Testing on heparinized plasma is not approved by the FDA; however, such approval is not necessary. Performed By: #### R ENAL ####[id number] [place] [address] Potassium [Moles/Vol] 4.0 mmol/L Normal 3.5 - 5.3 [facility] Comment on above: Performed By: #### R ENAL ####[id number] [place] [address] Sodium [Moles/Vol] 127 mmol/L Low 136 - 145 [facility] Comment on above: Performed By: #### R ENAL ####[id number] [place] [address] Urea nitrogen [Mass/Vol] 13 mg/dL Normal 6 - 23 [facility] Comment on above: Performed By: #### R ENAL ####[id number] [place] [address] TYPE + SCREENon 12-11-2022 ABO TYPE A Normal [facility] Comment on above: Performed By: #### V FPA4 #### [facility] [id number] [place] [address] RH TYPE Positive Normal [facility] Comment on above: Performed By: #### V FPA4 #### [facility] [id number] [place] [address] Triage - EDon 12-11-2022 Triage - ED Quick Triage: The patient and/or guardian verbally acknowledges placement for services into the following (when Urgent Care Service hours are operating):emergency department Chart Review: PRIMARY ASSESSMENT JIAN ALTAMIRANO's primary assessment is Within Defined Limits. The airway is open and patent. Breathing spontaneous and unlabored with clear breath sounds bilaterally. Circulation is normal with good peripheral pulses. Skin is warm and dry and color is normal for race. ARRIVAL INFORMATION Means of Arrival: stretcher Mode of Arrival: ambulance Agency Name: [facility] Arrival From: another ED Accompanied By: self and console assembler Language: Spoken Language Preferred: Ivorian Reading Language Preferred: Ivorian Field Service Representative Requested: no flower buncher or picker was requested MDRO: History of MDRO: no Present on Arrival: Device Present on Arrival to ED: no Pressure Ulcer Present on Arrival to ED: no CHIEF COMPLAINT JIAN ALTAMIRANO is a Male patient with a chief complaint of abdominal pain. Onset of the Complaint: 10-Dec-2022 Other Complaints: pt presents to the ed as a acs transfer from [place]. pt complaining of a 1 day history of abdominal pain, nausea and vomiting. CT scan at [place] revealed a Sigmoid volvus with sbo Triage Date/Time: 11-Dec-2022 09:02 RONI: 2 Pain Rating (0-10): 2 = Mild Vital Signs: Temperature: 98.4F ( 36.8C) taken oral Blood Pressure: 141/93 Mean: Heart Rate: 94 Respiratory Rate: 18 Pulse Oximetry: 96% on room air, no respiratory support. Height: 5 feet 3.00 inches. 160.0 CM Weight: 118.8 pounds. Calculated 53.9 kg. (stated) Calculated BMI (kg/m2): 21.054 Calculated BSA (m2) 1.55 [place] Coma Scale: Best Eye Response: (E4) spontaneous Best Motor Response: (M6) obeys commands Best Verbal Response: (V5) oriented Courtney Score: 15 Cough lasting greater than 3 weeks: no Allergies: no Mask applied: no Patient has homicidal thoughts: no Symptoms Are POSITIVE For: nausea and vomiting. Symptoms Are Negative For: anorexia, constipation, diaphoresis, diarrhea, distention, fever and rectal blood. Last Bowel Movement: 10-Dec-2022 Risk Screens Suicide Risk Screen In the Past Month: Have you wished you were or wished you could go to sleep and not wake up no In the Past Month: Have you had any actual thoughts of killing yourself no In Your Lifetime: Have you ever done anything, started to do anything, or prepared to do anything to end your life no Hill Fall Scale Screening Has the patient fallen before (or is the patient in the ED as a result of a fall) has not had a fall Does the patient have an impaired gait does not have impaired gait Is the patient cognitively impaired not cognitively impaired Interventions: Hill Fall Interventions: LOW INTERVENTIONS: *patient oriented to surroundings and call system, * patient/family falls education completed and documented, *patients fall status communicated during bedside handoff, *whiteboard updated, *mode of toileting discussed with patient, *bed in low position with brakes locked, *call light in reach, * non-skid footwear PAST MEDICAL HISTORY Immunization History: Last Known Tetanus Immunization: Unknown TRAVEL HISTORY Travel History Coronavirus Screening: no exposure or symptoms Travel Exposure History: NO travel to International locations in the past 30 days PAIN Pain Scale Used: DANIELLE Pain Rating (0-10): 2 = Mild Past Medical History: Past Medical History Reviewedyes seizures: Past Medical History, Active gastroparesis: Past Medical History, Active UTI: Past Medical History, Active bladder stones: Past Medical History, Active bladder diverticulum: Past Medical History, Active htn: Past Medical History, Active hydrocephalus: Past Medical History, Active Electronic Signatures: Philly De Los Santos (RN) (Signed 11-Dec-2022 09:12) Authored: Quick Triage, Risk Screens, Pain, Arrival, ABCD, Immunizations, Travel History, Chart Review, Scores, Past Medical History Last Updated: 11-Dec-2022 09:12 by Philly De Los Santso (RN) Normal [facility] VENOUS FULL PANELon 12-11-19 23 Anion gap [Moles/Vol] 10 mmol/L Normal 10 - 25 [facility] Comment on above: Performed By: #### V FPA4 #### [facility] [address] [place] [address] BASE EXCESS-BLOOD 0.5 mmol/L Normal -2.0 - 3.0 [facility] Comment on above: Performed By: #### V FPA4 #### [facility] [address] [place] [address] BICARB, CALCULATED 24.6 mmol/L Normal 22.0 - 26.0 [facility] Comment on above: Performed By: #### V FPA4 #### [facility] [address] [place] [address] CALCIUM,IONIZED 1.10 mmol/L Normal 1.10 - 1.33 [facility] Comment on above: Performed By: #### V FPA4 #### [facility] [address] [place] [address] Chloride [Moles/Vol] 97 mmol/L Low 98 - 107 [facility] Comment on above: Performed By: #### V FPA4 #### [place] [id number] [place] [address] Glucose [Mass/Vol] 110 mg/dL High 74 - 99 [facility] Comment on above: Performed By: #### V FPA4 #### [facility] [address] [place] [address] Hematocrit (Bld) [Volume fraction] 39.0 % Low 41.0 - 52.0 [facility] Comment on above: Performed By: #### V FPA4 #### [facility] [address] [place] [address] Hemoglobin (Bld) [Mass/Vol] 13.1 g/dL Low 13.5 - 17.5 [facility] Comment on above: Performed By: #### V FPA4 #### [facility] [address] [place] [address] Lactate [Moles/Vol] 0.5 mmol/L Normal 0.4 - 2.0 [facility] Comment on above: Performed By: #### V FPA4 #### [facility] [address] [place] [address] OXY HGB 94.5 % High 45.0 - 75.0 [facility] Comment on above: Performed By: #### V FPA4 #### [facility] [address] [place] [address] Oxygen (Bld) [Partial pressure] 76 mm[Hg] High 35 - 45 [facility] Comment on above: Performed By: #### V FPA4 #### [facility] [address] [place] [address] PATIENT TEMPERATURE 37.0 degrees C Normal [facility] Comment on above: Result Comment: NOTE : PATIENT RESULTS ARE NOT CORRECTED FOR TEMPERATURE. Performed By: #### V FPA4 #### [facility] [address] [place] [address] PCO2 37 mmHg Low 41 - 51 [facility] Comment on above: Performed By: #### V FPA4 #### [facility] [address] [place] [address] pH (Bld) 7.43 [pH] Normal 7.33 - 7.43 [facility] Comment on above: Performed By: #### V FPA4 #### [facility] [address] [place] [address] Potassium [Moles/Vol] 3.8 mmol/L Normal 3.5 - 5.3 [facility] Comment on above: Performed By: #### V FPA4 #### [facility] [address] [place] [address] SO2 97 % High 45 - 75 [facility] Comment on above: Performed By: #### V FPA4 #### [facility] [address] [place] [address] Sodium [Moles/Vol] 128 mmol/L Low 136 - 145 [facility] Comment on above: Performed By: #### V FPA4 #### [facility] [address] [place] [address] Absolute lymphocyte countOrd ered By: Dr. Schaffer on 12-10-2022 Lymphocytes Auto (Unsp spec) [#/Vol] 1.34 10*3/uL 0.83-4.51 [facility] Basophil percentageOrdered B y: Dr. Schaffer on 12-10-2022 Basophils/100 WBC (Bld) 0.2 % 0-1 [facility] Bilirubin [Mass/Vol] 0.40 mg/dL 0.20-1.00 [facility] Comment on above: For patients on eltr ombopag therapy, use of Dimension [place] TBIL is not recommended. Chloride [Moles/Vol] 95 mmol/L 98-107 [facility] Eosinophils/100 WBC (Bld) 0.2 % 0-5 [facility] Glucose [Mass/Vol] 146 mg/dL 74-106 [facility] Comment on above: Fasting Glucose resu lt greater than or equal to 126 mg/dL suggests DIABETES MELLITUS per A.D.A. criteria. Neutrophils (Bld) [#/Vol] 9.5 10*3/uL 2.0-7.7 [facility] Neutrophils/100 WBC (Bld) 78.7 % 47-70 [facility] Potassium [Moles/Vol] 3.9 mmol/L 3.5-5.1 [facility] Protein [Mass/Vol] 7.4 g/dL 6.4-8.2 [facility] Sodium [Moles/Vol] 129 mmol/L 136-145 [facility] WBC (Bld) [#/Vol] 12.1 10*3/uL 4.4-11.0 [facility] Blood erythrocytes count (nu mber/volume)Ordered By: Dr. Schaffer on 12-10-2022 RBC (Bld) [#/Vol] 4.96 10*6/uL 4.6-6.2 [facility] Blood hemoglobin measurement (mass/volume)Ordered By: Dr. Schaffer on 12-10-2022 Hemoglobin (Bld) [Mass/Vol] 14.6 g/dL 13.0-16.5 [facility] Blood lymphocytes/100 leukoc ytesOrdered By: Dr. Schaffer on 12-10-2022 Lymphocytes/100 WBC (Bld) 11.0 % 19-41 [facility] Blood monocytes/100 leukocyt esOrdered By: Dr. Schaffer on 12-10-2022 Monocytes/100 WBC (Bld) 9.7 % 0-10 [facility] Blood platelet mean volumeOr dered By: Dr. Schaffer on 12-10-2022 Platelet mean volume (Bld) [Entitic vol] 9.7 fL 6.2-12.0 [facility] Determination of erythrocyte mean corpuscular volume (MCV)Ordered By: Dr. Schaffer on 12-10-2022 MCV (RBC) [Entitic vol] 84.3 fL 80-94 [facility] Hematocrit Auto (Bld) [Volum e fraction]Ordered By: Dr. Schaffer on 12-10-2022 Hematocrit (Bld) [Volume fraction] 41.8 % 40-54 [facility] - Chemistry and C hemistry - challengeOrdered By: Dr. Schaffer on 12-10-2022 ALP [Catalytic activity/Vol] 63 U/L 45-117 [facility] ALT [Catalytic activity/Vol] 19 U/L 16-61 [facility] CO2 [Moles/Vol] 23.0 mmol/L 21.0-32.0 [facility] Globulin (S) [Mass/Vol] 4.0 g/dL 2.2-4.2 [facility] Lipase [Catalytic activity/Vol] 95 U/L 73-393 [facility] Urea nitrogen/Creatinine [Mass ratio] 21.2 mg/mg 10-20 [facility] - Hematology and Cell countsOrdered By: Dr. Schaffer on 12-10-2022 Erythrocyte distribution width (RBC) [Entitic vol] 40.9 fL 35.1-43.9 [facility] Erythrocyte distribution width (RBC) [Ratio] 13.2 % 11.6-14.6 [facility] Immature granulocytes/100 WBC (Bld) 0.200 % 0.0-0.9 [facility] Comment on above: IG% - Immature Granu locytes (promyelocytes, myelocytes and metamyelocytes) > 1% indicates that a LEFT SHIFT is Present. MCH (RBC) [Entitic mass] 29.4 pg 27.0-32.0 [facility] Nucleated RBC/100 WBC (Bld) [Ratio] 0 % 0-5 [facility] MCHC Auto (RBC) [Mass/Vol]Or dered By: Dr. Schaffer on 12-10-2022 MCHC (RBC) [Mass/Vol] 34.9 g/dL 32-36 [facility] No Panel InformationOrdered By: Dr. Schaffer on 12-10-2022 Estimated Creatinine Clearance Calc 83.85 ml/min [facility] Estimated GFR (MDRD) Amer 138 mL/min >60 [facility] Comment on above: GFR Calc Estimated GFR (MDRD) Non-Af Amer 114 mL/min >60 [facility] Comment on above: Non- GFR Calc Platelets bldOrdered By: Dr. Schaffer on 12-10-2022 Platelets (Bld) [#/Vol] 425 10*3/uL 150-450 [facility] Serum or plasma albumin jeremiah urement (mass/volume)Ordered By: Dr. Schaffer on 12-10-2022 Albumin [Mass/Vol] 3.4 g/dL 3.2-5.0 [facility] Serum or plasma albumin/glob ulin mass ratioOrdered By: Dr. Schaffer on 12-10-2022 Albumin/Globulin [Mass ratio] 0.8 {ratio} 0.9-2.4 [facility] Serum or plasma calcium jeremiah urement (mass/volume)Ordered By: Dr. Schaffer on 12-10-2022 Calcium [Mass/Vol] 8.7 mg/dL 8.5-10.1 [facility] Serum or plasma creatinine m easurement (mass/volume)Ordered By: Dr. Schaffer on 12-10-2022 Creatinine [Mass/Vol] 0.76 mg/dL 0.70-1.30 [facility] Comment on above: The validity of the calculated GFR & GFRAA in patients over 70 years has not been determined. Clinical correlation is essential. Serum or plasma urea nitroge n measurement (mass/volume)Ordered By: Dr. Schaffer on 12-10-2022 Urea nitrogen [Mass/Vol] 16 mg/dL 7-18 [facility] Thin prep Papanicolaou smear with manual screeningOrdered By: Dr. Schaffer on 12-10-2022 Thin prep Papanicolaou smear with manual screening 13 U/L 15-37 [facility] Thin prep Papanicolaou smear with manual screening 11 5-15 [facility] Culture, urineOrdered By: Dr Arleen Albarran on 11-03-2022 Bacteria identified Cx Nom (U) Citrobacter freundii [facility] Bacteria identified Cx Nom (U) Acinetobacter baumannii [facility] Bacteria identified Cx Nom (U) Enterococcus faecalis [facility] Basophil percentageOrdered B y: ED PROVIDER on 10-29-2022 Basophil percentage 5-10 SEEN /hpf 0-5 [facility] Bilirubin Test strip Ql (U)O rdered By: ED PROVIDER on 10-29-2022 Bilirubin Ql (U) Negative Negative [facility] Ketones Test strip Ql (U)Ord ered By: ED PROVIDER on 10-29-2022 Ketones Ql (U) Negative Negative [facility] Mucus LM Ql (Urine sed)Order ed By: ED PROVIDER on 10-29-2022 Mucus Ql (Urine sed) 0 SEEN /hpf [facility] Nitrite Test strip Ql (U)Ord ered By: ED PROVIDER on 10-29-2022 Nitrite Ql (U) Positive Negative [facility] Protein Test strip Ql (U)Ord ered By: ED PROVIDER on 10-29-2022 Protein Ql (U) 100 mg/dl Negative [facility] Squamous epithelial cells de tection in urine sediment by light microscopyOrdered By: ED PROVIDER on 10-29-2022 Epithelial cells.squamous LM Ql (Urine sed) 0 SEEN /hpf 0-5 [facility] Urine blood detectionOrdered By: ED PROVIDER on 10-29-2022 RBC Ql (U) 250 /ul Negative [facility] RBC Ql (U) > 100 SEEN /hpf 0-5 [facility] Urine clarityOrdered By: ED PROVIDER on 10-29-2022 Clarity (U) Sl. Cloudy Clear [facility] Urine color determinationOrd ered By: ED PROVIDER on 10-29-2022 Color (U) Yellow Yellow [facility] Urine glucose detectionOrder ed By: ED PROVIDER on 10-29-2022 Glucose Ql (U) Normal mg/dl Normal [facility] Urine leukocyte esterase det ection by dipstickOrdered By: ED PROVIDER on 10-29-2022 Leukocyte esterase Test strip Ql (U) 500 /ul Negative [facility] Urine pHOrdered By: ED PROVI KRISTINE on 10-29-2022 pH (U) 8.0 [pH] 5.0 - 8.0 [facility] Urine sediment bacteria coun t by microscopy (number/high power field)Ordered By: ED PROVIDER on 10-29-2022 Bacteria LM.HPF (Urine sed) [#/Area] RARE /hpf None Seen [facility] Urine specific gravity measu rementOrdered By: ED PROVIDER on 10-29-2022 Specific gravity (U) [Rel density] 1.015 1.002-1.030 [facility] Urobilinogen Auto test strip Ql (U)Ordered By: ED PROVIDER on 10-29-2022 Urobilinogen Ql (U) Normal mg/dl Normal [facility] Absolute lymphocyte countOrd ered By: Dr. Rankin on 09-23-2022 Lymphocytes Auto (Unsp spec) [#/Vol] 1.64 10*3/uL 0.83-4.51 [facility] Basophil percentageOrdered B y: Dr. Rankin on 09-23-2022 Basophils/100 WBC (Bld) 0.3 % 0-1 [facility] Chloride [Moles/Vol] 96 mmol/L 98-107 [facility] Eosinophils/100 WBC (Bld) 0.3 % 0-5 [facility] Glucose [Mass/Vol] 70 mg/dL 74-106 [facility] Neutrophils (Bld) [#/Vol] 8.3 10*3/uL 2.0-7.7 [facility] Neutrophils/100 WBC (Bld) 71.5 % 47-70 [facility] Potassium [Moles/Vol] 3.3 mmol/L 3.5-5.1 [facility] Sodium [Moles/Vol] 130 mmol/L 136-145 [facility] WBC (Bld) [#/Vol] 11.6 10*3/uL 4.4-11.0 [facility] Blood erythrocytes count (nu mber/volume)Ordered By: Dr. Rankin on 09-23-2022 RBC (Bld) [#/Vol] 4.00 10*6/uL 4.6-6.2 [facility] Blood hemoglobin measurement (mass/volume)Ordered By: Dr. Rankin on 09-23-2022 Hemoglobin (Bld) [Mass/Vol] 11.9 g/dL 13.0-16.5 [facility] Blood lymphocytes/100 leukoc ytesOrdered By: Dr. Rankin on 09-23-2022 Lymphocytes/100 WBC (Bld) 14.2 % 19-41 [facility] Blood monocytes/100 leukocyt esOrdered By: Dr. Rankin on 09-23-2022 Monocytes/100 WBC (Bld) 13.4 % 0-10 [facility] Blood platelet mean volumeOr dered By: Dr. Rankin on 09-23-2022 Platelet mean volume (Bld) [Entitic vol] 9.2 fL 6.2-12.0 [facility] Determination of erythrocyte mean corpuscular volume (MCV)Ordered By: Dr. Rankin on 09-23-2022 MCV (RBC) [Entitic vol] 86.5 fL 80-94 [facility] Hematocrit Auto (Bld) [Volum e fraction]Ordered By: Dr. Rankin on 09-23-2022 Hematocrit (Bld) [Volume fraction] 34.6 % 40-54 [facility] - Chemistry and C hemistry - challengeOrdered By: Dr. Rankin on 09-23-2022 CO2 [Moles/Vol] 21.0 mmol/L 21.0-32.0 [facility] Urea nitrogen/Creatinine [Mass ratio] 18.5 mg/mg 10-20 [facility] - Hematology and Cell countsOrdered By: Dr. Rankin on 09-23-2022 Erythrocyte distribution width (RBC) [Entitic vol] 42.4 fL 35.1-43.9 [facility] Erythrocyte distribution width (RBC) [Ratio] 13.4 % 11.6-14.6 [facility] Immature granulocytes/100 WBC (Bld) 0.300 % 0.0-0.9 [facility] Comment on above: IG% - Immature Granu locytes (promyelocytes, myelocytes and metamyelocytes) > 1% indicates that a LEFT SHIFT is Present. MCH (RBC) [Entitic mass] 29.8 pg 27.0-32.0 [facility] Nucleated RBC/100 WBC (Bld) [Ratio] 0 % 0-5 [facility] MCHC Auto (RBC) [Mass/Vol]Or dered By: Dr. Rankin on 09-23-2022 MCHC (RBC) [Mass/Vol] 34.4 g/dL 32-36 [facility] No Panel InformationOrdered By: Dr. Rankin on 09-23-2022 Estimated Creatinine Clearance Calc 129.93 ml/min [facility] Estimated GFR (MDRD) Amer 229 mL/min >60 [facility] Comment on above: GFR Calc Estimated GFR (MDRD) Non-Af Amer 189 mL/min >60 [facility] Comment on above: Non- GFR Calc Platelets bldOrdered By: Dr. Rankin on 09-23-2022 Platelets (Bld) [#/Vol] 389 10*3/uL 150-450 [facility] Review by pathologistOrdered By: Dr. Rankin on 09-23-2022 Pathologist review Vasu (Unsp spec) [Interp] Reviewed [facility] Comment on above: Previous reported re sult: Lissett velazco Edited by: JACKIE on 09/23/22:1540Neutrophilic leukocytosis.Clinical correlation necessary.Rony Simons M.D. 09/23/22 AMENDED REPORT 09/23/22 1540 PATH REV previously reported as: Lissett velazco Serum or plasma calcium jeremiah urement (mass/volume)Ordered By: Dr. Rankin on 09-23-2022 Calcium [Mass/Vol] 8.3 mg/dL 8.5-10.1 [facility] Serum or plasma creatinine m easurement (mass/volume)Ordered By: Dr. Rankin on 09-23-2022 Creatinine [Mass/Vol] 0.49 mg/dL 0.70-1.30 [facility] Comment on above: The validity of the calculated GFR & GFRAA in patients over 70 years has not been determined. Clinical correlation is essential. Serum or plasma urea nitroge n measurement (mass/volume)Ordered By: Dr. Rankin on 09-23-2022 Urea nitrogen [Mass/Vol] 9 mg/dL 7-18 [facility] Thin prep Papanicolaou smear with manual screeningOrdered By: Dr. Rankin on 09-23-2022 Thin prep Papanicolaou smear with manual screening 13 5-15 [facility] Basophil percentageOrdered B y: Dr. Franco on 09-20-2022 Basophil percentage 4.5 mg/dL 2.5-4.9 [facility] Bilirubin [Mass/Vol] 0.90 mg/dL 0.20-1.00 [facility] Comment on above: For patients on eltr ombopag therapy, use of Dimension [place] TBIL is not recommended. Protein [Mass/Vol] 7.8 g/dL 6.4-8.2 [facility] Bilirubin Test strip Ql (U)O rdered By: Dr. Franco on 09-20-2022 Bilirubin Ql (U) Negative Negative [facility] Blood manual differential co mment interpretation (narrative result)Ordered By: Dr. Franco on 09-20-2022 Manual differential comment Vasu (Bld) [Interp] COMMENT [facility] Comment on above: MONOCYTOSIS. Ketones Test strip Ql (U)Ord ered By: Dr. Franco on 09-20-2022 Ketones Ql (U) 5 mg/dl Negative [facility] - Chemistry and C hemistry - challengeOrdered By: Dr. Franco on 09-20-2022 ALP [Catalytic activity/Vol] 69 U/L 45-117 [facility] ALT [Catalytic activity/Vol] 17 U/L 16-61 [facility] Globulin (S) [Mass/Vol] 4.4 g/dL 2.2-4.2 [facility] [facility] Magnesium [Mass/Vol] 2.3 mg/dL 1.6-2.6 [facility] Nitrite Test strip Ql (U)Ord ered By: Dr. Franco on 09-20-2022 Nitrite Ql (U) Positive Negative [facility] No Panel InformationOrdered By: Dr. Franco on 09-20-2022 Thyroid Stimulating Hormone (TSH) 0.98 uIU/mL 0.358-3.74 [facility] Protein Test strip Ql (U)Ord ered By: Dr. Franco on 09-20-2022 Protein Ql (U) 100 mg/dl Negative [facility] Serum or plasma albumin jeremiah urement (mass/volume)Ordered By: Dr. Franco on 09-20-2022 Albumin [Mass/Vol] 3.4 g/dL 3.2-5.0 [facility] Serum or plasma albumin/glob ulin mass ratioOrdered By: Dr. Franco on 09-20-2022 Albumin/Globulin [Mass ratio] 0.8 {ratio} 0.9-2.4 [facility] Thin prep Papanicolaou smear with manual screeningOrdered By: Dr. Franco on 09-20-2022 Thin prep Papanicolaou smear with manual screening 9 U/L 15-37 [facility] Urine blood detectionOrdered By: Dr. Franco on 09-20-2022 RBC Ql (U) 150 /ul Negative [facility] Urine clarityOrdered By: Dr. Franco on 09-20-2022 Clarity (U) Sl. Cloudy Clear [facility] Urine color determinationOrd ered By: Dr. Franco on 09-20-2022 Color (U) Yellow Yellow [facility] Urine glucose detectionOrder ed By: Dr. Franco on 09-20-2022 Glucose Ql (U) Normal mg/dl Normal [facility] Urine leukocyte esterase det ection by dipstickOrdered By: Dr. Franco on 09-20-2022 Leukocyte esterase Test strip Ql (U) 500 /ul Negative [facility] Urine pHOrdered By: Dr. Franco on 09-20-2022 pH (U) 6.0 [pH] 5.0 - 8.0 [facility] Urine specific gravity measu rementOrdered By: Dr. Franco on 09-20-2022 Specific gravity (U) [Rel density] 1.015 1.002-1.030 [facility] Urobilinogen Auto test strip Ql (U)Ordered By: Dr. Franco on 09-20-2022 Urobilinogen Ql (U) Normal mg/dl Normal [facility] Absolute lymphocyte counton 09-19-2022 Lymphocytes Auto (Unsp spec) [#/Vol] 2.04 10*3/uL 0.83-4.51 [facility] Work Phone: Basophil percentageon 2021 Basophils/100 WBC (Bld) 0.3 % 0-1 [facility] Work Phone: Chloride [Moles/Vol] 91 mmol/L 98-107 [facility]: Eosinophils/100 WBC (Bld) 0.4 % 0-5 [facility] Work Phone: Glucose [Mass/Vol] 128 mg/dL 74-106 [facility] Work Phone: [phone] Comment on above: Fasting Glucose resu lt greater than or equal to 126 mg/dL suggests DIABETES MELLITUS per A.D.A. criteria. Neutrophils (Bld) [#/Vol] 13.1 10*3/uL 2.0-7.7 [facility] Work Phone: Neutrophils/100 WBC (Bld) 77.0 % 47-70 [facility] Work Phone: Potassium [Moles/Vol] 3.7 mmol/L 3.5-5.1 [facility] Work Phone: Sodium [Moles/Vol] 129 mmol/L 136-145 [facility] Work Phone: WBC (Bld) [#/Vol] 16.9 10*3/uL 4.4-11.0 [facility] Work Phone: [phone] Blood erythrocytes count (nu mber/volume)on 09-19-2022 RBC (Bld) [#/Vol] 5.50 10*6/uL 4.6-6.2 [facility] Work Phone: Blood hemoglobin measurement (mass/volume)on 09-19-2022 Hemoglobin (Bld) [Mass/Vol] 16.0 g/dL 13.0-16.5 [facility] Work Phone: Blood lymphocytes/100 leukoc yteson 09-19-2022 Lymphocytes/100 WBC (Bld) 12.1 % 19-41 [facility] Work Phone: Blood manual differential co mment interpretation (narrative result)on 09-19-2022 Manual differential comment Vasu (Bld) [Interp] SCANNED [facility] Work Phone: Blood monocytes/100 leukocyt eson 09-19-2022 Monocytes/100 WBC (Bld) 9.8 % 0-10 [facility] Work Phone: Blood platelet mean volumeon 09-19-2022 Platelet mean volume (Bld) [Entitic vol] 9.4 fL 6.2-12.0 [facility] Work Phone: Determination of erythrocyte mean corpuscular volume (MCV)on 09-19-2022 MCV (RBC) [Entitic vol] 85.3 fL 80-94 [facility] Work Phone: Hematocrit Auto (Bld) [Volum e fraction]on 09-19-2022 Hematocrit (Bld) [Volume fraction] 46.9 % 40-54 [facility] Work Phone: Laboratory - Chemistry and C hemistry - challengeon 09-19-2022 CO2 [Moles/Vol] 26.0 mmol/L 21.0-32.0 [facility] Work Phone: Urea nitrogen/Creatinine [Mass ratio] 18.4 mg/mg 10-20 [facility] Work Phone: Laboratory - Hematology and Cell countson 09-19-2022 Erythrocyte distribution width (RBC) [Entitic vol] 41.8 fL 35.1-43.9 [facility] Work Phone: Erythrocyte distribution width (RBC) [Ratio] 13.4 % 11.6-14.6 [facility] Work Phone: Immature granulocytes/100 WBC (Bld) 0.400 % 0.0-0.9 [facility] Work Phone: Comment on above: IG% - Immature Granu locytes (promyelocytes, myelocytes and metamyelocytes) > 1% indicates that a LEFT SHIFT is Present. MCH (RBC) [Entitic mass] 29.1 pg 27.0-32.0 [facility] Work Phone: Nucleated RBC/100 WBC (Bld) [Ratio] 0 % 0-5 [facility] Work Phone: MCHC Auto (RBC) [Mass/Vol]on 09-19-2022 MCHC (RBC) [Mass/Vol] 34.1 g/dL 32-36 [facility] Work Phone: No Panel Informationon 09-19 Estimated Creatinine Clearance Calc 84.83 ml/min [facility] Work Phone: Estimated GFR (MDRD) Amer 137 mL/min >60 [facility] Work Phone: Comment on above: GFR Calc Estimated GFR (MDRD) Non-Af Amer 113 mL/min >60 [facility] Work Phone: Comment on above: Non- GFR Calc Platelets bldon 09-19-2022 Platelets (Bld) [#/Vol] 550 10*3/uL 150-450 [facility] Work Phone: Review by pathologiston Pathologist review Vasu (Unsp spec) [Interp] March [facility] Work Phone: Serum or plasma calcium jeremiah urement (mass/volume)on 09-19-2022 Calcium [Mass/Vol] 10.1 mg/dL 8.5-10.1 [facility] Work Phone: Serum or plasma creatinine m easurement (mass/volume)on 09-19-2022 Creatinine [Mass/Vol] 0.76 mg/dL 0.70-1.30 [facility] Work Phone: Comment on above: The validity of the calculated GFR & GFRAA in patients over 70 years has not been determined. Clinical correlation is essential. Serum or plasma urea nitroge n measurement (mass/volume)on 09-19-2022 Urea nitrogen [Mass/Vol] 14 mg/dL 7-18 [facility] Work Phone: Thin prep Papanicolaou smear with manual screeningon 09-19-2022 Thin prep Papanicolaou smear with manual screening 12 5-15 [facility] Work Phone: Laboratory - Microbiology an d Antimicrobial susceptibilityOrdered By: Dr. Dodd on 09-15-2022 Bacteria identified Cx Nom (Bld) No growth in 5 days. [facility] Bacteria identified Cx Nom (Bld) No growth in 5 days. [facility] Basophil percentageOrdered B y: Dr. Mercer on 09-12-2022 Chloride [Moles/Vol] 101 mmol/L 98-107 [facility] Glucose [Mass/Vol] 107 mg/dL 74-106 [facility] Comment on above: Fasting Glucose resu lt from 100 to 125 mg/dL suggests IMPAIRED HOMEOSTASIS per A.D.A. criteria. Potassium [Moles/Vol] 3.8 mmol/L 3.5-5.1 [facility] Sodium [Moles/Vol] 133 mmol/L 136-145 [facility] Culture, urineOrdered By: Dr Arleen Dodd on 09-12-2022 Bacteria identified Cx Nom (U) Citrobacter freundii [facility] Bacteria identified Cx Nom (U) Proteus mirabilis [facility] Laboratory - Chemistry and C hemistry - challengeOrdered By: Dr. Mercer on 09-12-2022 CO2 [Moles/Vol] 26.0 mmol/L 21.0-32.0 [facility] Urea nitrogen/Creatinine [Mass ratio] 7.1 mg/mg 09-02 [facility] No Panel InformationOrdered By: Dr. Mercer on 09-12-2022 Estimated Creatinine Clearance Calc 116.46 ml/min [facility] Estimated GFR (MDRD) Amer 195 mL/min >60 [facility] Comment on above: GFR Calc Estimated GFR (MDRD) Non-Af Amer 161 mL/min >60 [facility] Comment on above: Non- GFR Calc Serum or plasma calcium jeremiah urement (mass/volume)Ordered By: Dr. Mercer on 09-12-2022 Calcium [Mass/Vol] 8.4 mg/dL 8.5-10.1 [facility] Serum or plasma creatinine m easurement (mass/volume)Ordered By: Dr. Mercer on 09-12-2022 Creatinine [Mass/Vol] 0.56 mg/dL 0.70-1.30 [facility] Comment on above: The validity of the calculated GFR & GFRAA in patients over 70 years has not been determined. Clinical correlation is essential. Serum or plasma urea nitroge n measurement (mass/volume)Ordered By: Dr. Mercer on 09-12-2022 Urea nitrogen [Mass/Vol] 4 mg/dL 7-18 [facility] Thin prep Papanicolaou smear with manual screeningOrdered By: Dr. Mercer on 09-12-2022 Thin prep Papanicolaou smear with manual screening 6 5-15 [facility] Absolute lymphocyte countOrd ered By: Dr. Mercer on 09-11-2022 Lymphocytes Auto (Unsp spec) [#/Vol] 1.67 10*3/uL 0.83-4.51 [facility] Basophil percentageOrdered B y: Dr. Mercer on 09-11-2022 Basophils/100 WBC (Bld) 0.2 % 0-1 [facility] Eosinophils/100 WBC (Bld) 0.1 % 0-5 [facility] Neutrophils (Bld) [#/Vol] 6.4 10*3/uL 2.0-7.7 [facility] Neutrophils/100 WBC (Bld) 68.0 % 47-70 [facility] WBC (Bld) [#/Vol] 9.5 10*3/uL 4.4-11.0 [facility] Blood erythrocytes count (nu mber/volume)Ordered By: Dr. Mercer on 09-11-2022 RBC (Bld) [#/Vol] 4.01 10*6/uL 4.6-6.2 [facility] Blood hemoglobin measurement (mass/volume)Ordered By: Dr. Mercer on 09-11-2022 Hemoglobin (Bld) [Mass/Vol] 11.8 g/dL 13.0-16.5 [facility] Blood lymphocytes/100 leukoc ytesOrdered By: Dr. Mercer on 09-11-2022 Lymphocytes/100 WBC (Bld) 17.7 % 19-41 [facility] Blood monocytes/100 leukocyt esOrdered By: Dr. Mercer on 09-11-2022 Monocytes/100 WBC (Bld) 13.8 % 0-10 [facility] Blood platelet mean volumeOr dered By: Dr. Mercer on 09-11-2022 Platelet mean volume (Bld) [Entitic vol] 10.1 fL 6.2-12.0 [facility] Determination of erythrocyte mean corpuscular volume (MCV)Ordered By: Dr. Mercer on 09-11-2022 MCV (RBC) [Entitic vol] 88.3 fL 80-94 [facility] Comment on above: Delta: 84.0 on 09/09 Hematocrit Auto (Bld) [Volum e fraction]Ordered By: Dr. Mercer on 09-11-2022 Hematocrit (Bld) [Volume fraction] 35.4 % 40-54 [facility] Laboratory - Chemistry and C hemistry - challengeOrdered By: Dr. Ruiz on 09-11-2022 Magnesium [Mass/Vol] 2.0 mg/dL 1.6-2.6 [facility] Laboratory - Hematology and Cell countsOrdered By: Dr. Mercer on 09-11-2022 Erythrocyte distribution width (RBC) [Entitic vol] 44.6 fL 35.1-43.9 [facility] Erythrocyte distribution width (RBC) [Ratio] 13.8 % 11.6-14.6 [facility] Immature granulocytes/100 WBC (Bld) 0.200 % 0.0-0.9 [facility] Comment on above: IG% - Immature Granu locytes (promyelocytes, myelocytes and metamyelocytes) > 1% indicates that a LEFT SHIFT is Present. MCH (RBC) [Entitic mass] 29.4 pg 27.0-32.0 [facility] Nucleated RBC/100 WBC (Bld) [Ratio] 0 % 0-5 [facility] MCHC Auto (RBC) [Mass/Vol]Or dered By: Dr. Mercer on 09-11-2022 MCHC (RBC) [Mass/Vol] 33.3 g/dL 32-36 [facility] Comment on above: Delta: 35.4 on 09/09-2149 Platelets bldOrdered By: Dr. Mercer on 09-11-2022 Platelets (Bld) [#/Vol] 275 10*3/uL 150-450 [facility] COVID-19 virus antigen assay Ordered By: Dr. Lackey on 09-10-2022 SARS-CoV-2 (COVID-19) Ag IA.rapid Ql (Resp) [facility] Absolute lymphocyte counton 09-09-2022 Lymphocytes Auto (Unsp spec) [#/Vol] 0.88 10*3/uL 0.83-4.51 [facility] Work Phone: [phone] Basophil percentageOrdered B y: Dr. Dodd on 09-09-2022 Lactate [Moles/Vol] 1.6 mmol/L 0.4-2.0 [facility] Basophil percentage >100 SEEN /hpf 0-5 [facility] Bilirubin [Mass/Vol] 0.70 mg/dL 0.20-1.00 [facility] Comment on above: For patients on eltr ombopag therapy, use of Dimension [place] TBIL is not recommended. Protein [Mass/Vol] 9.2 g/dL 6.4-8.2 [facility] Basophil percentageon 2021 Basophils/100 WBC (Bld) 0.3 % 0-1 [facility] Work Phone: Chloride [Moles/Vol] 92 mmol/L 98-107 [facility] Work Phone: Eosinophils/100 WBC (Bld) 0.1 % 0-5 [facility] Work Phone: Glucose [Mass/Vol] 141 mg/dL 74-106 [facility] Work Phone: Comment on above: Fasting Glucose resu lt greater than or equal to 126 mg/dL suggests DIABETES MELLITUS per A.D.A. criteria. Neutrophils (Bld) [#/Vol] 15.9 10*3/uL 2.0-7.7 [facility] Work Phone: Neutrophils/100 WBC (Bld) 87.5 % 47-70 [facility] Work Phone: Potassium [Moles/Vol] 3.5 mmol/L 3.5-5.1 [facility] Work Phone: Sodium [Moles/Vol] 126 mmol/L 136-145 [facility] Work Phone: WBC (Bld) [#/Vol] 18.2 10*3/uL 4.4-11.0 [facility] Work Phone: Bilirubin Test strip Ql (U)O rdered By: Dr. Dodd on 09-09-2022 Bilirubin Ql (U) Negative Negative [facility] Blood erythrocytes count (nu mber/volume)on 09-09-2022 RBC (Bld) [#/Vol] 5.68 10*6/uL 4.6-6.2 [facility] Work Phone: Blood hemoglobin measurement (mass/volume)on 09-09-2022 Hemoglobin (Bld) [Mass/Vol] 16.9 g/dL 13.0-16.5 [facility] Work Phone: Blood lymphocytes/100 leukoc yteson 09-09-2022 Lymphocytes/100 WBC (Bld) 4.8 % 19-41 [facility] Work Phone: Blood monocytes/100 leukocyt eson 09-09-2022 Monocytes/100 WBC (Bld) 7.1 % 0-10 [facility] Work Phone: Blood platelet mean volumeon 09-09-2022 Platelet mean volume (Bld) [Entitic vol] 10.2 fL 6.2-12.0 [facility] Work Phone: Determination of erythrocyte mean corpuscular volume (MCV)on 09-09-2022 MCV (RBC) [Entitic vol] 84.0 fL 80-94 [facility] Work Phone: Hematocrit Auto (Bld) [Volum e fraction]on 09-09-2022 Hematocrit (Bld) [Volume fraction] 47.7 % 40-54 [facility] Work Phone: Ketones Test strip Ql (U)Ord ered By: Dr. Dodd on 09-09-2022 Ketones Ql (U) 15 mg/dl Negative [facility] Laboratory - Chemistry and C hemistry - challengeOrdered By: Dr. Dodd on 09-09-2022 ALP [Catalytic activity/Vol] 83 U/L 45-117 [facility] ALT [Catalytic activity/Vol] 21 U/L 16-61 [facility] Globulin (S) [Mass/Vol] 4.9 g/dL 2.2-4.2 [facility] Lipase [Catalytic activity/Vol] 91 U/L 73-393 [facility] Laboratory - Chemistry and C hemistry - challengeon 09-09-2022 CO2 [Moles/Vol] 22.0 mmol/L 21.0-32.0 [facility] Work Phone: Urea nitrogen/Creatinine [Mass ratio] 14.4 mg/mg 10-20 [facility] Work Phone: Laboratory - Hematology and Cell countson 09-09-2022 Erythrocyte distribution width (RBC) [Entitic vol] 41.0 fL 35.1-43.9 [facility] Work Phone: Erythrocyte distribution width (RBC) [Ratio] 13.3 % 11.6-14.6 [facility] Work Phone: Immature granulocytes/100 WBC (Bld) 0.200 % 0.0-0.9 [facility] Work Phone: Comment on above: IG% - Immature Granu locytes (promyelocytes, myelocytes and metamyelocytes) > 1% indicates that a LEFT SHIFT is Present. MCH (RBC) [Entitic mass] 29.8 pg 27.0-32.0 [facility] Work Phone: Nucleated RBC/100 WBC (Bld) [Ratio] 0 % 0-5 [facility] Work Phone: MCHC Auto (RBC) [Mass/Vol]on 09-09-2022 MCHC (RBC) [Mass/Vol] 35.4 g/dL 32-36 [facility] Work Phone: Mucus LM Ql (Urine sed)Order ed By: Dr. Dodd on 09-09-2022 Mucus Ql (Urine sed) 0 SEEN /hpf [facility] Nitrite Test strip Ql (U)Ord ered By: Dr. Dodd on 09-09-2022 Nitrite Ql (U) Positive Negative [facility] No Panel Informationon 09-09 Estimated Creatinine Clearance Calc 54.64 ml/min [facility] Work Phone: Estimated GFR (MDRD) Amer 83 mL/min >60 [facility] Work Phone: Comment on above: GFR Calc Estimated GFR (MDRD) Non-Af Amer 68 mL/min >60 [facility] Work Phone: Comment on above: Non- GFR Calc Platelets bldon 09-09-2022 Platelets (Bld) [#/Vol] 366 10*3/uL 150-450 [facility] Work Phone: Protein Test strip Ql (U)Ord ered By: Dr. Dodd on 09-09-2022 Protein Ql (U) 500 mg/dl Negative [facility] Serum or plasma albumin jeremiah urement (mass/volume)Ordered By: Dr. Dodd on 09-09-2022 Albumin [Mass/Vol] 4.3 g/dL 3.2-5.0 [facility] Serum or plasma albumin/glob ulin mass ratioOrdered By: Dr. Dodd on 09-09-2022 Albumin/Globulin [Mass ratio] 0.9 {ratio} 0.9-2.4 [facility] Serum or plasma calcium jeremiah urement (mass/volume)on 09-09-2022 Calcium [Mass/Vol] 9.8 mg/dL 8.5-10.1 [facility] Work Phone: Serum or plasma creatinine m easurement (mass/volume)on 09-09-2022 Creatinine [Mass/Vol] 1.18 mg/dL 0.70-1.30 [facility] Work Phone: Comment on above: The validity of the calculated GFR & GFRAA in patients over 70 years has not been determined. Clinical correlation is essential. Serum or plasma urea nitroge n measurement (mass/volume)on 09-09-2022 Urea nitrogen [Mass/Vol] 17 mg/dL 7-18 [facility] Work Phone: Squamous epithelial cells de tection in urine sediment by light microscopyOrdered By: Dr. Dodd on 09-09-2022 Epithelial cells.squamous LM Ql (Urine sed) 0 SEEN /hpf 0-5 [facility] Thin prep Papanicolaou smear with manual screeningOrdered By: Dr. Dodd on 09-09-2022 Thin prep Papanicolaou smear with manual screening 14 U/L 15-37 [facility] Thin prep Papanicolaou smear with manual screeningon 09-09-2022 Thin prep Papanicolaou smear with manual screening 12 5-15 [facility] Work Phone: Urine blood detectionOrdered By: Dr. Dodd on 09-09-2022 RBC Ql (U) 250 /ul Negative [facility] RBC Ql (U) 25-50 SEEN /hpf 0-5 [facility] Urine clarityOrdered By: Dr. Dodd on 09-09-2022 Clarity (U) Cloudy Clear [facility] Urine color determinationOrd ered By: Dr. Dodd on 09-09-2022 Color (U) Yellow Yellow [facility] Urine glucose detectionOrder ed By: Dr. Dodd on 09-09-2022 Glucose Ql (U) Normal mg/dl Normal [facility] Urine leukocyte esterase det ection by dipstickOrdered By: Dr. Dodd on 09-09-2022 Leukocyte esterase Test strip Ql (U) 500 /ul Negative [facility] Urine pHOrdered By: Dr. Josselin rivas on 09-09-2022 pH (U) 6.5 [pH] 5.0 - 8.0 [facility] Urine sediment bacteria coun t by microscopy (number/high power field)Ordered By: Dr. Dodd on 09-09-2022 Bacteria LM.HPF (Urine sed) [#/Area] 3 /[HPF] None Seen [facility] Urine specific gravity measu rementOrdered By: Dr. Dodd on 09-09-2022 Specific gravity (U) [Rel density] 1.015 1.002-1.030 [facility] Urobilinogen Auto test strip Ql (U)Ordered By: Dr. Dodd on 09-09-2022 Urobilinogen Ql (U) Normal mg/dl Normal [facility] Laboratory - Microbiology an d Antimicrobial susceptibilityOrdered By: Dr. Vasquez on 08-16-2022 Bacteria identified Cx Nom (Bld) No growth in 5 days. [facility] Absolute lymphocyte countOrd ered By: Dr. Mercer on 08-13-2022 Lymphocytes Auto (Unsp spec) [#/Vol] 1.74 10*3/uL 0.83-4.51 [facility] Basophil percentageOrdered B y: Dr. Mercer on 08-13-2022 Basophils/100 WBC (Bld) 0.3 % 0-1 [facility] Chloride [Moles/Vol] 101 mmol/L 98-107 [facility] Eosinophils/100 WBC (Bld) 1.8 % 0-5 [facility] Glucose [Mass/Vol] 111 mg/dL 74-106 [facility] Comment on above: Fasting Glucose resu lt from 100 to 125 mg/dL suggests IMPAIRED HOMEOSTASIS per A.D.A. criteria. Neutrophils (Bld) [#/Vol] 2.9 10*3/uL 2.0-7.7 [facility] Neutrophils/100 WBC (Bld) 47.2 % 47-70 [facility] Potassium [Moles/Vol] 3.6 mmol/L 3.5-5.1 [facility] Sodium [Moles/Vol] 135 mmol/L 136-145 [facility] WBC (Bld) [#/Vol] 6.2 10*3/uL 4.4-11.0 [facility] Blood erythrocytes count (nu mber/volume)Ordered By: Dr. Mercer on 08-13-2022 RBC (Bld) [#/Vol] 3.70 10*6/uL 4.6-6.2 [facility] Blood hemoglobin measurement (mass/volume)Ordered By: Dr. Mercer on 08-13-2022 Hemoglobin (Bld) [Mass/Vol] 10.7 g/dL 13.0-16.5 [facility] Blood lymphocytes/100 leukoc ytesOrdered By: Dr. Mercer on 08-13-2022 Lymphocytes/100 WBC (Bld) 28.2 % 19-41 [facility] Blood manual differential co mment interpretation (narrative result)Ordered By: Dr. Mercer on 08-13-2022 Manual differential comment Vasu (Bld) [Interp] SCANNED [facility] Blood monocytes/100 leukocyt esOrdered By: Dr. Mercer on 08-13-2022 Monocytes/100 WBC (Bld) 22.2 % 0-10 [facility] Blood platelet mean volumeOr dered By: Dr. Mercer on 08-13-2022 Platelet mean volume (Bld) [Entitic vol] 9.6 fL 6.2-12.0 [facility] Culture, urineOrdered By: Dr Arleen Vasquez on 08-13-2022 Bacteria identified Cx Nom (U) Escherichia coli [facility] Determination of erythrocyte mean corpuscular volume (MCV)Ordered By: Dr. Mercer on 08-13-2022 MCV (RBC) [Entitic vol] 85.1 fL 80-94 [facility] Hematocrit Auto (Bld) [Volum e fraction]Ordered By: Dr. Mercer on 08-13-2022 Hematocrit (Bld) [Volume fraction] 31.5 % 40-54 [facility] Laboratory - Chemistry and C hemistry - challengeOrdered By: Dr. Mercer on 08-13-2022 CO2 [Moles/Vol] 25.0 mmol/L 21.0-32.0 [facility] Urea nitrogen/Creatinine [Mass ratio] 12.1 mg/mg 10-20 [facility] Laboratory - Hematology and Cell countsOrdered By: Dr. Mercer on 08-13-2022 Erythrocyte distribution width (RBC) [Entitic vol] 39.9 fL 35.1-43.9 [facility] Erythrocyte distribution width (RBC) [Ratio] 12.9 % 11.6-14.6 [facility] Immature granulocytes/100 WBC (Bld) 0.300 % 0.0-0.9 [facility] Comment on above: IG% - Immature Granu locytes (promyelocytes, myelocytes and metamyelocytes) > 1% indicates that a LEFT SHIFT is Present. MCH (RBC) [Entitic mass] 28.9 pg 27.0-32.0 [facility] Nucleated RBC/100 WBC (Bld) [Ratio] 0 % 0-5 [facility] MCHC Auto (RBC) [Mass/Vol]Or dered By: Dr. Mercer on 08-13-2022 MCHC (RBC) [Mass/Vol] 34.0 g/dL 32-36 [facility] No Panel InformationOrdered By: Dr. Mercer on 08-13-2022 Atypical Lymphocytes RARE % [facility] Estimated Creatinine Clearance Calc 132.36 ml/min [facility] Estimated GFR (MDRD) Amer 225 mL/min >60 [facility] Comment on above: GFR Calc Estimated GFR (MDRD) Non-Af Amer 186 mL/min >60 [facility] Comment on above: Non- GFR Calc Platelets bldOrdered By: Dr. Mercer on 08-13-2022 Platelets (Bld) [#/Vol] 308 10*3/uL 150-450 [facility] Serum or plasma calcium jeremiah urement (mass/volume)Ordered By: Dr. Mercer on 08-13-2022 Calcium [Mass/Vol] 8.1 mg/dL 8.5-10.1 [facility] Serum or plasma creatinine m easurement (mass/volume)Ordered By: Dr. Mercer on 08-13-2022 Creatinine [Mass/Vol] 0.49 mg/dL 0.70-1.30 [facility] Comment on above: The validity of the calculated GFR & GFRAA in patients over 70 years has not been determined. Clinical correlation is essential. Serum or plasma urea nitroge n measurement (mass/volume)Ordered By: Dr. Mercer on 08-13-2022 Urea nitrogen [Mass/Vol] 6 mg/dL 7-18 [facility] Thin prep Papanicolaou smear with manual screeningOrdered By: Dr. Mercer on 08-13-2022 Thin prep Papanicolaou smear with manual screening 9 5-15 [facility] Basophil percentageOrdered B y: Beth Almazan on 08-11-2022 Basophil percentage 3.4 mg/dL 2.5-4.9 [facility] Laboratory - Chemistry and C hemistry - challengeOrdered By: Beth Almazan on 08-11-2022 Magnesium [Mass/Vol] 2.1 mg/dL 1.6-2.6 [facility] No Panel InformationOrdered By: Beth Almazan on 08-11-2022 Thyroid Stimulating Hormone (TSH) 0.68 uIU/mL 0.358-3.74 [facility] Whole blood hemoglobin A1c/t otal hemoglobin ratio (mass fraction)Ordered By: Blaire Hunter on 08-11-2022 HbA1c (Bld) [Mass fraction] 5.8 % 3.8-5.6 [facility] Comment on above: Normal < 5.7 % Predi abetic 5.7 - 6.4 % Diabetic >or= 6.5 % Please note range changes. Absolute lymphocyte counton 08-10-2022 Lymphocytes Auto (Unsp spec) [#/Vol] 1.52 10*3/uL 0.83-4.51 [facility] Work Phone: Basophil percentageOrdered B y: Dr. Vasquez on 08-10-2022 Basophil percentage 25-50 SEEN /hpf 0-5 [facility] Bilirubin [Mass/Vol] 0.50 mg/dL 0.20-1.00 [facility] Comment on above: For patients on eltr ombopag therapy, use of Dimension [place] TBIL is not recommended. Lactate [Moles/Vol] 1.1 mmol/L 0.4-2.0 [facility] Protein [Mass/Vol] 7.2 g/dL 6.4-8.2 [facility] Basophil percentageon 2021 Basophils/100 WBC (Bld) 0.2 % 0-1 [facility] Work Phone: Chloride [Moles/Vol] 83 mmol/L 98-107 [facility] Work Phone: Eosinophils/100 WBC (Bld) 0.1 % 0-5 [facility] Work Phone: Glucose [Mass/Vol] 115 mg/dL 74-106 [facility] Work Phone: Comment on above: Fasting Glucose resu lt from 100 to 125 mg/dL suggests IMPAIRED HOMEOSTASIS per A.D.A. criteria. Neutrophils (Bld) [#/Vol] 7.7 10*3/uL 2.0-7.7 [facility] Work Phone: Neutrophils/100 WBC (Bld) 67.6 % 47-70 [facility] Work Phone: Potassium [Moles/Vol] 3.8 mmol/L 3.5-5.1 [facility] Work Phone: Sodium [Moles/Vol] 119 mmol/L 136-145 [facility] Work Phone: [phone] Comment on above: Critical Result(s) C alled at: 22:55:16 08/10/2022 by: TERESITA CELESTIN TO [facility]. Results read back by same. WBC (Bld) [#/Vol] 11.4 10*3/uL 4.4-11.0 [facility] Work Phone: Bilirubin Test strip Ql (U)o n 08-10-2022 Bilirubin Ql (U) Negative Negative [facility] Work Phone: Bilirubin Test strip Ql (U)O rdered By: Dr. Vasquez on 08-10-2022 Bilirubin Ql (U) Negative Negative [facility] Blood erythrocytes count (nu mber/volume)on 08-10-2022 RBC (Bld) [#/Vol] 4.27 10*6/uL 4.6-6.2 [facility] Work Phone: Blood hemoglobin measurement (mass/volume)on 08-10-2022 Hemoglobin (Bld) [Mass/Vol] 12.5 g/dL 13.0-16.5 [facility] Work Phone: Blood lymphocytes/100 leukoc yteson 08-10-2022 Lymphocytes/100 WBC (Bld) 13.3 % 19-41 [facility] Work Phone: Blood manual differential co mment interpretation (narrative result)on 08-10-2022 Manual differential comment Vasu (Bld) [Interp] SEE COMMENT [facility] Work Phone: Comment on above: MONOCYTOSIS NOTED Blood monocytes/100 leukocyt eson 08-10-2022 Monocytes/100 WBC (Bld) 18.4 % 0-10 [facility] Work Phone: Blood platelet adequacy dete ction by light microscopyOrdered By: Dr. Vasquez on 08-10-2022 Platelets LM Ql (Bld) ADEQUATE ADEQ [facility] Blood platelet mean volumeon 08-10-2022 Platelet mean volume (Bld) [Entitic vol] 9.9 fL 6.2-12.0 [facility] Work Phone: Determination of erythrocyte mean corpuscular volume (MCV)on 08-10-2022 MCV (RBC) [Entitic vol] 83.4 fL 80-94 [facility] Work Phone: Direct bilirubinOrdered By: Dr. Vasquez on 08-10-2022 Bilirubin.direct [Mass/Vol] 0.16 mg/dL 0.00-0.30 [facility] Hematocrit Auto (Bld) [Volum e fraction]on 08-10-2022 Hematocrit (Bld) [Volume fraction] 35.6 % 40-54 [facility] Work Phone: Influenza virus A and B and SARS-CoV-2 (COVID-19) Ag panel - Upper respiratory specimOrdered By: Dr. Vasquez on 08-10-2022 SARS-CoV-2 (COVID-19) RNA MOHINI+probe Ql (Resp) [facility] Ketones Test strip Ql (U)on 08-10-2022 Ketones Ql (U) 50 mg/dl Negative [facility] Work Phone: Ketones Test strip Ql (U)Ord ered By: Dr. Vasquez on 08-10-2022 Ketones Ql (U) 15 mg/dl Negative [facility] Laboratory - Chemistry and C hemistry - challengeOrdered By: Dr. Vasquez on 08-10-2022 ALP [Catalytic activity/Vol] 62 U/L 45-117 [facility] ALT [Catalytic activity/Vol] 25 U/L 16-61 [facility] Globulin (S) [Mass/Vol] 4.3 g/dL 2.2-4.2 [facility] Laboratory - Chemistry and C hemistry - challengeon 08-10-2022 CO2 [Moles/Vol] 27.0 mmol/L 21.0-32.0 [facility] Work Phone: Urea nitrogen/Creatinine [Mass ratio] 8.8 mg/mg 10-20 [facility] Work Phone: Laboratory - Chemistry and C hemistry - challengeOrdered By: Beth Almazan on 08-10-2022 Sodium (U) [Moles/Vol] 23 mmol/L Not Establ. [facility] Laboratory - Hematology and Cell countson 08-10-2022 Erythrocyte distribution width (RBC) [Entitic vol] 38.2 fL 35.1-43.9 [facility] Work Phone: Erythrocyte distribution width (RBC) [Ratio] 12.6 % 11.6-14.6 [facility] Work Phone: Immature granulocytes/100 WBC (Bld) 0.400 % 0.0-0.9 [facility] Work Phone: Comment on above: IG% - Immature Granu locytes (promyelocytes, myelocytes and metamyelocytes) > 1% indicates that a LEFT SHIFT is Present. MCH (RBC) [Entitic mass] 29.3 pg 27.0-32.0 [facility] Work Phone: Nucleated RBC/100 WBC (Bld) [Ratio] 0 % 0-5 [facility] Work Phone: MCHC Auto (RBC) [Mass/Vol]on 08-10-2022 MCHC (RBC) [Mass/Vol] 35.1 g/dL 32-36 [facility] Work Phone: Mucus LM Ql (Urine sed)Order ed By: Dr. Vasquez on 08-10-2022 Mucus Ql (Urine sed) 0 SEEN /hpf [facility] Nitrite Test strip Ql (U)on 08-10-2022 Nitrite Ql (U) Negative Negative [facility] Work Phone: Nitrite Test strip Ql (U)Ord ered By: Dr. Vasquez on 08-10-2022 Nitrite Ql (U) Positive Negative [facility] No Panel Informationon 08-10 Estimated Creatinine Clearance Calc 94.81 ml/min [facility] Work Phone: Estimated GFR (MDRD) Amer 156 mL/min >60 [facility] Work Phone: Comment on above: GFR Calc Estimated GFR (MDRD) Non-Af Amer 129 mL/min >60 [facility] Work Phone: Comment on above: Non- GFR Calc Platelets bldon 08-10-2022 Platelets (Bld) [#/Vol] 376 10*3/uL 150-450 [facility] Work Phone: Protein Test strip Ql (U)on 08-10-2022 Protein Ql (U) 100 mg/dl Negative [facility] Work Phone: Protein Test strip Ql (U)Ord ered By: Dr. Vasquez on 08-10-2022 Protein Ql (U) 30 mg/dl Negative [facility] RBC morphologyOrdered By: Dr Arleen Vasquez on 08-10-2022 RBC morphology finding Nom (Bld) N CHROM NORMAL NORM C&C [facility] Review by pathologiston 07-16 Pathologist review Vasu (Unsp spec) [Interp] March mora [facility] Work Phone: Review by pathologistOrdered By: Dr. Vasquez on 08-10-2022 Pathologist review Vasu (Unsp spec) [Interp] Reviewed [facility] Comment on above: Previous reported re sult: March mora Edited by: RGOOD on 08/11/22:1213Leukocytosis. Clinical correlation necessary.Rony Simons M.D. 08/11/22 AMENDED REPORT 08/11/22 1213 PATH REV previously reported as: March mora Serum or plasma albumin jeremiah urement (mass/volume)Ordered By: Dr. Vasquez on 08-10-2022 Albumin [Mass/Vol] 2.9 g/dL 3.2-5.0 [facility] Serum or plasma calcium jeremiah urement (mass/volume)on 08-10-2022 Calcium [Mass/Vol] 8.5 mg/dL 8.5-10.1 [facility] Work Phone: Serum or plasma creatinine m easurement (mass/volume)on 08-10-2022 Creatinine [Mass/Vol] 0.68 mg/dL 0.70-1.30 [facility] Work Phone: Comment on above: The validity of the calculated GFR & GFRAA in patients over 70 years has not been determined. Clinical correlation is essential. Serum or plasma urea nitroge n measurement (mass/volume)on 08-10-2022 Urea nitrogen [Mass/Vol] 6 mg/dL 7-18 [facility] Work Phone: Squamous epithelial cells de tection in urine sediment by light microscopyOrdered By: Dr. Vasquez on 08-10-2022 Epithelial cells.squamous LM Ql (Urine sed) 0 SEEN /hpf 0-5 [facility] Thin prep Papanicolaou smear with manual screeningOrdered By: Dr. Vasquez on 08-10-2022 Thin prep Papanicolaou smear with manual screening 24 U/L 15-37 [facility] Thin prep Papanicolaou smear with manual screeningon 08-10-2022 Thin prep Papanicolaou smear with manual screening 9 5-15 [facility] Work Phone: Thin prep Papanicolaou smear with manual screeningOrdered By: Beth Almazan on 08-10-2022 Thin prep Papanicolaou smear with manual screening 239 mOsm/KG 275-295 [facility] Urine blood detectionon 07-16 RBC Ql (U) 150 /ul Negative [facility] Work Phone: Urine blood detectionOrdered By: Dr. Vasquez on 08-10-2022 RBC Ql (U) 150 /ul Negative [facility] RBC Ql (U) 0-5 SEEN /hpf 0-5 [facility] Urine clarityon 08-10-2022 Clarity (U) Sl. Cloudy Clear [facility] Work Phone: Urine clarityOrdered By: Dr. Vasquez on 08-10-2022 Clarity (U) Sl. Cloudy Clear [facility] Urine color determinationon 08-10-2022 Color (U) Yellow Yellow [facility] Work Phone: Urine color determinationOrd ered By: Dr. Vasqeuz on 08-10-2022 Color (U) Straw Yellow [facility] Urine creatinine measurement (mass/volume)Ordered By: Beth Almazan on 08-10-2022 Creatinine (U) [Mass/Vol] mg/dL NO RANGE EST. [facility] Urine glucose detectionon Glucose Ql (U) Normal mg/dl Normal [facility] Work Phone: Urine glucose detectionOrder ed By: Dr. Vasquez on 08-10-2022 Glucose Ql (U) Normal mg/dl Normal [facility] Urine leukocyte esterase det ection by dipstickon 08-10-2022 Leukocyte esterase Test strip Ql (U) 500 /ul Negative [facility] Work Phone: Urine leukocyte esterase det ection by dipstickOrdered By: Dr. Vasquez on 08-10-2022 Leukocyte esterase Test strip Ql (U) 500 /ul Negative [facility] Urine osmolality measurement Ordered By: Beth Almazan on 08-10-2022 Osmolality (U) [Osmolality] 49 mOsm/KG >50 [facility] Comment on above: Normal Urine Referen ce Ranges Random: 50 - 1200 mOsm/kg H20 depending on fluid intake Random: >850 mOsm/kg after 12 hour fluid restriction 24 hour: ~300 - 900 mOsm/kg H2O Urine pHon 08-10-2022 pH (U) 7.0 [pH] 5.0 - 8.0 [facility] Work Phone: Urine pHOrdered By: Dr. Royce sales on 08-10-2022 pH (U) 7.0 [pH] 5.0 - 8.0 [facility] Urine sediment bacteria coun t by microscopy (number/high power field)Ordered By: Dr. Vasquez on 08-10-2022 Bacteria LM.HPF (Urine sed) [#/Area] 1 /[HPF] None Seen [facility] Urine specific gravity measu rementon 08-10-2022 Specific gravity (U) [Rel density] 1.010 1.002-1.030 [facility] Work Phone: Urine specific gravity measu rementOrdered By: Dr. Vasquez on 08-10-2022 Specific gravity (U) [Rel density] 1.010 1.002-1.030 [facility] Urobilinogen Auto test strip Ql (U)on 08-10-2022 Urobilinogen Ql (U) Normal mg/dl Normal [facility] Work Phone: Urobilinogen Auto test strip Ql (U)Ordered By: Dr. Vasquez on 08-10-2022 Urobilinogen Ql (U) Normal mg/dl Normal [facility] Absolute lymphocyte counton 07-24-2022 Lymphocytes Auto (Unsp spec) [#/Vol] 1.47 10*3/uL 0.83-4.51 [facility] Work Phone: Basophil percentageon 2021 Basophils/100 WBC (Bld) 0.3 % 0-1 [facility] Work Phone: Chloride [Moles/Vol] 105 mmol/L 98-107 [facility] Work Phone: Eosinophils/100 WBC (Bld) 0.3 % 0-5 [facility] Work Phone: Glucose [Mass/Vol] 95 mg/dL 74-106 [facility] Work Phone: Neutrophils (Bld) [#/Vol] 7.9 10*3/uL 2.0-7.7 [facility] Work Phone: [phone] Neutrophils/100 WBC (Bld) 74.5 % 47-70 [facility] Work Phone: Potassium [Moles/Vol] 3.1 mmol/L 3.5-5.1 [facility] Work Phone: [phone] Sodium [Moles/Vol] 143 mmol/L 136-145 [facility] Work Phone: WBC (Bld) [#/Vol] 10.7 10*3/uL 4.4-11.0 [facility] Work Phone: Blood erythrocytes count (nu mber/volume)on 07-24-2022 RBC (Bld) [#/Vol] 4.50 10*6/uL 4.6-6.2 [facility] Work Phone: Blood hemoglobin measurement (mass/volume)on 07-24-2022 Hemoglobin (Bld) [Mass/Vol] 13.0 g/dL 13.0-16.5 [facility] Work Phone: Blood lymphocytes/100 leukoc yteson 07-24-2022 Lymphocytes/100 WBC (Bld) 13.8 % 19-41 [facility] Work Phone: Blood monocytes/100 leukocyt eson 07-24-2022 Monocytes/100 WBC (Bld) 10.9 % 0-10 [facility] Work Phone: Blood platelet mean volumeon 07-24-2022 Platelet mean volume (Bld) [Entitic vol] 9.8 fL 6.2-12.0 [facility] Work Phone: Determination of erythrocyte mean corpuscular volume (MCV)on 07-24-2022 MCV (RBC) [Entitic vol] 90.0 fL 80-94 [facility] Work Phone: Hematocrit Auto (Bld) [Volum e fraction]on 07-24-2022 Hematocrit (Bld) [Volume fraction] 40.5 % 40-54 [facility] Work Phone: Laboratory - Chemistry and C hemistry - challengeon 07-24-2022 CO2 [Moles/Vol] 26.0 mmol/L 21.0-32.0 [facility] Work Phone: Urea nitrogen/Creatinine [Mass ratio] 29.7 mg/mg 10-20 [facility] Work Phone: Laboratory - Hematology and Cell countson 07-24-2022 Erythrocyte distribution width (RBC) [Entitic vol] 43.3 fL 35.1-43.9 [facility] Work Phone: Erythrocyte distribution width (RBC) [Ratio] 13.1 % 11.6-14.6 [facility] Work Phone: Immature granulocytes/100 WBC (Bld) 0.200 % 0.0-0.9 [facility] Work Phone: Comment on above: IG% - Immature Granu locytes (promyelocytes, myelocytes and metamyelocytes) > 1% indicates that a LEFT SHIFT is Present. MCH (RBC) [Entitic mass] 28.9 pg 27.0-32.0 [facility] Work Phone: Nucleated RBC/100 WBC (Bld) [Ratio] 0 % 0-5 [facility] Work Phone: MCHC Auto (RBC) [Mass/Vol]on 07-24-2022 MCHC (RBC) [Mass/Vol] 32.1 g/dL 32-36 [facility] Work Phone: Comment on above: Delta: 34.0 on 07/23 No Panel Informationon 07-24 Estimated Creatinine Clearance Calc 90.81 ml/min [facility] Work Phone: Estimated GFR (MDRD) Amer 149 mL/min >60 [facility] Work Phone: Comment on above: GFR Calc Estimated GFR (MDRD) Non-Af Amer 123 mL/min >60 [facility] Work Phone: Comment on above: Non- GFR Calc Platelets bldon 07-24-2022 Platelets (Bld) [#/Vol] 385 10*3/uL 150-450 [facility] Work Phone: Serum or plasma calcium jeremiah urement (mass/volume)on 07-24-2022 Calcium [Mass/Vol] 9.0 mg/dL 8.5-10.1 [facility] Work Phone: Serum or plasma creatinine m easurement (mass/volume)on 07-24-2022 Creatinine [Mass/Vol] 0.71 mg/dL 0.70-1.30 [facility] Work Phone: Comment on above: The validity of the calculated GFR & GFRAA in patients over 70 years has not been determined. Clinical correlation is essential. Serum or plasma urea nitroge n measurement (mass/volume)on 07-24-2022 Urea nitrogen [Mass/Vol] 21 mg/dL 7-18 [facility] Work Phone: Thin prep Papanicolaou smear with manual screeningon 07-24-2022 Thin prep Papanicolaou smear with manual screening 12 5-15 [facility] Work Phone: Basophil percentageon 2021 Basophil percentage 2.1 mg/dL 2.5-4.9 [facility] Work Phone: Laboratory - Chemistry and C hemistry - challengeon 07-22-2022 Magnesium [Mass/Vol] 2.0 mg/dL 1.6-2.6 [facility] Work Phone: Absolute lymphocyte counton 07-21-2022 Lymphocytes Auto (Unsp spec) [#/Vol] 0.92 10*3/uL 0.83-4.51 [facility] Work Phone: Basophil percentageon 2021 Lactate [Moles/Vol] 1.3 mmol/L 0.4-2.0 [facility] Work Phone: Basophil percentage 5-10 SEEN /hpf 0-5 [facility] Work Phone: Basophils/100 WBC (Bld) 0.1 % 0-1 [facility] Work Phone: Bilirubin [Mass/Vol] 0.60 mg/dL 0.20-1.00 [facility] Work Phone: Comment on above: For patients on eltr ombopag therapy, use of Dimension [place] TBIL is not recommended. Chloride [Moles/Vol] 95 mmol/L 98-107 [facility] Work Phone: Eosinophils/100 WBC (Bld) 0.2 % 0-5 [facility] Work Phone: Glucose [Mass/Vol] 138 mg/dL 74-106 [facility] Work Phone: Comment on above: Fasting Glucose resu lt greater than or equal to 126 mg/dL suggests DIABETES MELLITUS per A.D.A. criteria. Neutrophils (Bld) [#/Vol] 12.5 10*3/uL 2.0-7.7 [facility] Work Phone: Neutrophils/100 WBC (Bld) 87.1 % 47-70 [facility] Work Phone: Potassium [Moles/Vol] 4.1 mmol/L 3.5-5.1 [facility] Work Phone: Protein [Mass/Vol] 7.7 g/dL 6.4-8.2 [facility] Work Phone: Sodium [Moles/Vol] 130 mmol/L 136-145 [facility] Work Phone: WBC (Bld) [#/Vol] 14.4 10*3/uL 4.4-11.0 [facility] Work Phone: Bilirubin Test strip Ql (U)o n 07-21-2022 Bilirubin Ql (U) Negative Negative [facility] Work Phone: Blood erythrocytes count (nu mber/volume)on 07-21-2022 RBC (Bld) [#/Vol] 5.39 10*6/uL 4.6-6.2 [facility] Work Phone: Blood hemoglobin measurement (mass/volume)on 07-21-2022 Hemoglobin (Bld) [Mass/Vol] 15.6 g/dL 13.0-16.5 [facility] Work Phone: Blood lymphocytes/100 leukoc yteson 07-21-2022 Lymphocytes/100 WBC (Bld) 6.4 % 19-41 [facility] Work Phone: Blood monocytes/100 leukocyt eson 07-21-2022 Monocytes/100 WBC (Bld) 5.9 % 0-10 [facility] Work Phone: Blood platelet mean volumeon 07-21-2022 Platelet mean volume (Bld) [Entitic vol] 9.5 fL 6.2-12.0 [facility] Work Phone: Determination of erythrocyte mean corpuscular volume (MCV)on 07-21-2022 MCV (RBC) [Entitic vol] 85.5 fL 80-94 [facility] Work Phone: Hematocrit Auto (Bld) [Volum e fraction]on 07-21-2022 Hematocrit (Bld) [Volume fraction] 46.1 % 40-54 [facility] Work Phone: Ketones Test strip Ql (U)on 07-21-2022 Ketones Ql (U) 5 mg/dl Negative [facility] Work Phone: Laboratory - Chemistry and C hemistry - challengeon 07-21-2022 ALP [Catalytic activity/Vol] 70 U/L 45-117 [facility] Work Phone: ALT [Catalytic activity/Vol] 20 U/L 16-61 [facility] Work Phone: CO2 [Moles/Vol] 25.0 mmol/L 21.0-32.0 [facility] Work Phone: Globulin (S) [Mass/Vol] 4.4 g/dL 2.2-4.2 [facility] Work Phone: Lipase [Catalytic activity/Vol] 106 U/L 73-393 [facility] Work Phone: Urea nitrogen/Creatinine [Mass ratio] 23.6 mg/mg 10-20 [facility] Work Phone: Laboratory - Hematology and Cell countson 07-21-2022 Erythrocyte distribution width (RBC) [Entitic vol] 39.8 fL 35.1-43.9 [facility] Work Phone: Erythrocyte distribution width (RBC) [Ratio] 12.8 % 11.6-14.6 [facility] Work Phone: Immature granulocytes/100 WBC (Bld) 0.300 % 0.0-0.9 [facility] Work Phone: Comment on above: IG% - Immature Granu locytes (promyelocytes, myelocytes and metamyelocytes) > 1% indicates that a LEFT SHIFT is Present. MCH (RBC) [Entitic mass] 28.9 pg 27.0-32.0 [facility] Work Phone: Nucleated RBC/100 WBC (Bld) [Ratio] 0 % 0-5 [facility] Work Phone: MCHC Auto (RBC) [Mass/Vol]on 07-21-2022 MCHC (RBC) [Mass/Vol] 33.8 g/dL 32-36 [facility] Work Phone: Magnesium ammonium phosphate crystal detectionon 07-21-2022 Triple phosphate crystals LM Ql (Urine sed) 1+ /hpf [facility] Work Phone: Mucus LM Ql (Urine sed)on Mucus Ql (Urine sed) 0 SEEN /hpf [facility] Work Phone: Nitrite Test strip Ql (U)on 07-21-2022 Nitrite Ql (U) Negative Negative [facility] Work Phone: No Panel Informationon 07-21 Estimated Creatinine Clearance Calc 79.96 ml/min [facility] Work Phone: Estimated GFR (MDRD) Amer 121 mL/min >60 [facility] Work Phone: Comment on above: GFR Calc Estimated GFR (MDRD) Non-Af Amer 100 mL/min >60 [facility] Work Phone: Comment on above: Non- GFR Calc Platelets bldon 07-21-2022 Platelets (Bld) [#/Vol] 450 10*3/uL 150-450 [facility] Work Phone: Protein Test strip Ql (U)on 07-21-2022 Protein Ql (U) 500 mg/dl Negative [facility] Work Phone: Serum or plasma albumin jeremiah urement (mass/volume)on 07-21-2022 Albumin [Mass/Vol] 3.3 g/dL 3.2-5.0 [facility] Work Phone: Serum or plasma albumin/glob ulin mass ratioon 07-21-2022 Albumin/Globulin [Mass ratio] 0.8 {ratio} 0.9-2.4 [facility] Work Phone: Serum or plasma calcium jeremiah urement (mass/volume)on 07-21-2022 Calcium [Mass/Vol] 9.0 mg/dL 8.5-10.1 [facility] Work Phone: Serum or plasma creatinine m easurement (mass/volume)on 07-21-2022 Creatinine [Mass/Vol] 0.85 mg/dL 0.70-1.30 [facility] Work Phone: Comment on above: The validity of the calculated GFR & GFRAA in patients over 70 years has not been determined. Clinical correlation is essential. Serum or plasma urea nitroge n measurement (mass/volume)on 07-21-2022 Urea nitrogen [Mass/Vol] 20 mg/dL 7-18 [facility] Work Phone: Squamous epithelial cells de tection in urine sediment by light microscopyon 07-21-2022 Epithelial cells.squamous LM Ql (Urine sed) 0-5 SEEN /hpf 0-5 [facility] Work Phone: Thin prep Papanicolaou smear with manual screeningon 07-21-2022 Thin prep Papanicolaou smear with manual screening 13 U/L 15-37 [facility] Work Phone: Thin prep Papanicolaou smear with manual screening 10 5-15 [facility] Work Phone: Urine blood detectionon RBC Ql (U) 250 /ul Negative [facility] Work Phone: RBC Ql (U) > 100 SEEN /hpf 0-5 [facility] Work Phone: Urine clarityon 07-21-2022 Clarity (U) Turbid Clear [facility] Work Phone: Urine color determinationon 07-21-2022 Color (U) Yellow Yellow [facility] Work Phone: Urine glucose detectionon Glucose Ql (U) Normal mg/dl Normal [facility] Work Phone: Urine leukocyte esterase det ection by dipstickon 07-21-2022 Leukocyte esterase Test strip Ql (U) 500 /ul Negative [facility] Work Phone: Urine pHon 07-21-2022 pH (U) 8.0 [pH] 5.0 - 8.0 [facility] Work Phone: Urine sediment bacteria coun t by microscopy (number/high power field)on 07-21-2022 Bacteria LM.HPF (Urine sed) [#/Area] 4 /[HPF] None Seen [facility] Work Phone: Urine specific gravity measu rementon 07-21-2022 Specific gravity (U) [Rel density] 1.015 1.002-1.030 [facility] Work Phone: Urobilinogen Auto test strip Ql (U)on 07-21-2022 Urobilinogen Ql (U) Normal mg/dl Normal [facility] Work Phone: Basophil percentageon 2021 Basophil percentage 10-25 SEEN /hpf 0-5 [facility] Work Phone: Bilirubin Test strip Ql (U)o n 07-05-2022 Bilirubin Ql (U) Negative Negative [facility] Work Phone: Ketones Test strip Ql (U)on 07-05-2022 Ketones Ql (U) Negative Negative [facility] Work Phone: Mucus LM Ql (Urine sed)on Mucus Ql (Urine sed) 0 SEEN /hpf [facility] Work Phone: Nitrite Test strip Ql (U)on 07-05-2022 Nitrite Ql (U) Negative Negative [facility] Work Phone: Protein Test strip Ql (U)on 07-05-2022 Protein Ql (U) 100 mg/dl Negative [facility] Work Phone: Squamous epithelial cells de tection in urine sediment by light microscopyon 07-05-2022 Epithelial cells.squamous LM Ql (Urine sed) 0 SEEN /hpf 0-5 [facility] Work Phone: Urine blood detectionon 06-15 RBC Ql (U) 50 /ul Negative [facility] Work Phone: RBC Ql (U) 5-10 SEEN /hpf 0-5 [facility] Work Phone: Urine clarityon 07-05-2022 Clarity (U) Clear Clear [facility] Work Phone: Urine color determinationon 07-05-2022 Color (U) Yellow Yellow [facility] Work Phone: Urine glucose detectionon Glucose Ql (U) Normal mg/dl Normal [facility] Work Phone: Urine leukocyte esterase det ection by dipstickon 07-05-2022 Leukocyte esterase Test strip Ql (U) 500 /ul Negative [facility] Work Phone: Urine pHon 07-05-2022 pH (U) 7.0 [pH] 5.0 - 8.0 [facility] Work Phone: Urine sediment bacteria coun t by microscopy (number/high power field)on 07-05-2022 Bacteria LM.HPF (Urine sed) [#/Area] 3 /[HPF] None Seen [facility] Work Phone: Urine specific gravity measu rementon 07-05-2022 Specific gravity (U) [Rel density] 1.015 1.002-1.030 [facility] Work Phone: Urobilinogen Auto test strip Ql (U)on 07-05-2022 Urobilinogen Ql (U) Normal mg/dl Normal [facility] Work Phone: Absolute lymphocyte counton 04-13-2022 Lymphocytes Auto (Unsp spec) [#/Vol] 1.41 10*3/uL 0.83-4.51 [facility] Work Phone: Basophil percentageon 2021 Basophil percentage 10-25 SEEN /hpf 0-5 [facility] Work Phone: Basophils/100 WBC (Bld) 0.2 % 0-1 [facility] Work Phone: Bilirubin [Mass/Vol] 1.10 mg/dL 0.20-1.00 [facility] Work Phone: Comment on above: For patients on eltr ombopag therapy, use of Dimension [place] TBIL is not recommended. Chloride [Moles/Vol] 86 mmol/L 98-107 [facility] Work Phone: Eosinophils/100 WBC (Bld) 0.0 % 0-5 [facility] Work Phone: [phone] Glucose [Mass/Vol] 122 mg/dL 74-106 [facility] Work Phone: Comment on above: Fasting Glucose resu lt from 100 to 125 mg/dL suggests IMPAIRED HOMEOSTASIS per A.D.A. criteria. Lactate [Moles/Vol] 0.8 mmol/L 0.4-2.0 [facility] Work Phone: Neutrophils (Bld) [#/Vol] 10.5 10*3/uL 2.0-7.7 [facility] Work Phone: Neutrophils/100 WBC (Bld) 79.1 % 47-70 [facility] Work Phone: Potassium [Moles/Vol] 3.6 mmol/L 3.5-5.1 [facility] Work Phone: Protein [Mass/Vol] 8.1 g/dL 6.4-8.2 [facility] Work Phone: Sodium [Moles/Vol] 123 mmol/L 136-145 [facility] Work Phone: WBC (Bld) [#/Vol] 13.2 10*3/uL 4.4-11.0 [facility] Work Phone: Bilirubin Test strip Ql (U)o n 04-13-2022 Bilirubin Ql (U) Negative Negative [facility] Work Phone: Blood erythrocytes count (nu mber/volume)on 04-13-2022 RBC (Bld) [#/Vol] 5.30 10*6/uL 4.6-6.2 [facility] Work Phone: Blood hemoglobin measurement (mass/volume)on 04-13-2022 Hemoglobin (Bld) [Mass/Vol] 15.4 g/dL 13.0-16.5 [facility] Work Phone: Blood lymphocytes/100 leukoc yteson 04-13-2022 Lymphocytes/100 WBC (Bld) 10.6 % 19-41 [facility] Work Phone: [phone] Blood monocytes/100 leukocyt eson 04-13-2022 Monocytes/100 WBC (Bld) 9.7 % 0-10 [facility] Work Phone: Blood platelet mean volumeon 04-13-2022 Platelet mean volume (Bld) [Entitic vol] 9.9 fL 6.2-12.0 [facility] Work Phone: [phone] Calcium oxalate crystals det ection in urine sediment by light microscopyon 04-13-2022 Calcium oxalate crystals LM Ql (Urine sed) 1+ /hpf [facility] Work Phone: Determination of erythrocyte mean corpuscular volume (MCV)on 04-13-2022 MCV (RBC) [Entitic vol] 84.7 fL 80-94 [facility] Work Phone: Hematocrit Auto (Bld) [Volum e fraction]on 04-13-2022 Hematocrit (Bld) [Volume fraction] 44.9 % 40-54 [facility] Work Phone: [phone] Hyaline casts LM.LPF (Urine sed) [#/Area]on 04-13-2022 Hyaline casts (Urine sed) [#/Area] 0 /[LPF] 0-5 [facility] Work Phone: Ketones Test strip Ql (U)on 04-13-2022 Ketones Ql (U) 15 mg/dl Negative [facility] Work Phone: Laboratory - Chemistry and C hemistry - challengeon 04-13-2022 ALP [Catalytic activity/Vol] 74 U/L 45-117 [facility] Work Phone: ALT [Catalytic activity/Vol] 22 U/L 16-61 [facility] Work Phone: CO2 [Moles/Vol] 26.0 mmol/L 21.0-32.0 [facility] Work Phone: Globulin (S) [Mass/Vol] 4.4 g/dL 2.2-4.2 [facility] Work Phone: Lipase [Catalytic activity/Vol] 66 U/L 73-393 [facility] Work Phone: Urea nitrogen/Creatinine [Mass ratio] 24.5 mg/mg 10-20 [facility] Work Phone: Laboratory - Hematology and Cell countson 04-13-2022 Erythrocyte distribution width (RBC) [Entitic vol] 38.8 fL 35.1-43.9 [facility] Work Phone: Erythrocyte distribution width (RBC) [Ratio] 12.6 % 11.6-14.6 [facility] Work Phone: Immature granulocytes/100 WBC (Bld) 0.400 % 0.0-0.9 [facility] Work Phone: Comment on above: IG% - Immature Granu locytes (promyelocytes, myelocytes and metamyelocytes) > 1% indicates that a LEFT SHIFT is Present. MCH (RBC) [Entitic mass] 29.1 pg 27.0-32.0 [facility] Work Phone: Nucleated RBC/100 WBC (Bld) [Ratio] 0 % 0-5 [facility] Work Phone: [phone] MCHC Auto (RBC) [Mass/Vol]on 04-13-2022 MCHC (RBC) [Mass/Vol] 34.3 g/dL 32-36 [facility] Work Phone: Mucus LM Ql (Urine sed)on Mucus Ql (Urine sed) 1+ /hpf [facility] Work Phone: Nitrite Test strip Ql (U)on 04-13-2022 Nitrite Ql (U) Negative Negative [facility] Work Phone: No Panel Informationon 04-13 Estimated Creatinine Clearance Calc 69.11 ml/min [facility] Work Phone: Estimated GFR (MDRD) Amer 102 mL/min >60 [facility] Work Phone: Comment on above: GFR Calc Estimated GFR (MDRD) Non-Af Amer 85 mL/min >60 [facility] Work Phone: Comment on above: Non- GFR Calc Platelets bldon 04-13-2022 Platelets (Bld) [#/Vol] 484 10*3/uL 150-450 [facility] Work Phone: Protein Test strip Ql (U)on 04-13-2022 Protein Ql (U) 30 mg/dl Negative [facility] Work Phone: Serum or plasma albumin jeremiah urement (mass/volume)on 04-13-2022 Albumin [Mass/Vol] 3.7 g/dL 3.2-5.0 [facility] Work Phone: Serum or plasma albumin/glob ulin mass ratioon 04-13-2022 Albumin/Globulin [Mass ratio] 0.8 {ratio} 0.9-2.4 [facility] Work Phone: Serum or plasma calcium jeremiah urement (mass/volume)on 04-13-2022 Calcium [Mass/Vol] 9.4 mg/dL 8.5-10.1 [facility] Work Phone: Serum or plasma creatinine m easurement (mass/volume)on 04-13-2022 Creatinine [Mass/Vol] 0.98 mg/dL 0.70-1.30 [facility] Work Phone: Comment on above: The validity of the calculated GFR & GFRAA in patients over 70 years has not been determined. Clinical correlation is essential. Serum or plasma urea nitroge n measurement (mass/volume)on 04-13-2022 Urea nitrogen [Mass/Vol] 24 mg/dL 7-18 [facility] Work Phone: Squamous epithelial cells de tection in urine sediment by light microscopyon 04-13-2022 Epithelial cells.squamous LM Ql (Urine sed) 0-5 SEEN /hpf 0-5 [facility] Work Phone: Thin prep Papanicolaou smear with manual screeningon 04-13-2022 Thin prep Papanicolaou smear with manual screening 16 U/L 15-37 [facility] Work Phone: Thin prep Papanicolaou smear with manual screening 11 5-15 [facility] Work Phone: Urine blood detectionon - RBC Ql (U) 250 /ul Negative [facility] Work Phone: RBC Ql (U) 5-10 SEEN /hpf 0-5 [facility] Work Phone: Urine clarityon 04-13-2022 Clarity (U) Sl. Cloudy Clear [facility] Work Phone: Urine color determinationon 04-13-2022 Color (U) Yellow Yellow [facility] Work Phone: Urine glucose detectionon Glucose Ql (U) Normal mg/dl Normal [facility] Work Phone: Urine leukocyte esterase det ection by dipstickon 04-13-2022 Leukocyte esterase Test strip Ql (U) 500 /ul Negative [facility] Work Phone: Urine pHon 04-13-2022 pH (U) 6.5 [pH] 5.0 - 8.0 [facility] Work Phone: Urine sediment bacteria coun t by microscopy (number/high power field)on 04-13-2022 Bacteria LM.HPF (Urine sed) [#/Area] 2 /[HPF] None Seen [facility] Work Phone: Urine specific gravity measu rementon 04-13-2022 Specific gravity (U) [Rel density] 1.010 1.002-1.030 [facility] Work Phone: Urobilinogen Auto test strip Ql (U)on 04-13-2022 Urobilinogen Ql (U) Normal mg/dl Normal [facility] Work Phone: Basophil percentageon 2021 Basophil percentage 50-100 SEEN /hpf 0-5 [facility] Work Phone: Bilirubin Test strip Ql (U)o n 03-27-2022 Bilirubin Ql (U) Negative Negative [facility] Work Phone: Culture, urineon 03-27-2022 Bacteria identified Cx Nom (U) Proteus mirabilis [facility] Work Phone: Ketones Test strip Ql (U)on 03-27-2022 Ketones Ql (U) Negative Negative [facility] Work Phone: Mucus LM Ql (Urine sed)on Mucus Ql (Urine sed) 0 SEEN /hpf [facility] Work Phone: Nitrite Test strip Ql (U)on 03-27-2022 Nitrite Ql (U) Negative Negative [facility] Work Phone: Protein Test strip Ql (U)on 03-27-2022 Protein Ql (U) 30 mg/dl Negative [facility] Work Phone: Squamous epithelial cells de tection in urine sediment by light microscopyon 03-27-2022 Epithelial cells.squamous LM Ql (Urine sed) 0 SEEN /hpf 0-5 [facility] Work Phone: Urine blood detectionon 03-14 RBC Ql (U) 150 /ul Negative [facility] Work Phone: RBC Ql (U) 5-10 SEEN /hpf 0-5 [facility] Work Phone: Urine clarityon 03-27-2022 Clarity (U) Sl. Cloudy Clear [facility] Work Phone: Urine color determinationon 03-27-2022 Color (U) Yellow Yellow [facility] Work Phone: Urine glucose detectionon Glucose Ql (U) Normal mg/dl Normal [facility] Work Phone: Urine leukocyte esterase det ection by dipstickon 03-27-2022 Leukocyte esterase Test strip Ql (U) 500 /ul Negative [facility] Work Phone: Urine pHon 03-27-2022 pH (U) 7.0 [pH] 5.0 - 8.0 [facility] Work Phone: Urine sediment bacteria coun t by microscopy (number/high power field)on 03-27-2022 Bacteria LM.HPF (Urine sed) [#/Area] 2 /[HPF] None Seen [facility] Work Phone: Urine specific gravity measu rementon 03-27-2022 Specific gravity (U) [Rel density] 1.010 1.002-1.030 [facility] Work Phone: Urobilinogen Auto test strip Ql (U)on 03-27-2022 Urobilinogen Ql (U) Normal mg/dl Normal [facility] Work Phone: Culture, urineon 03-07-2022 Bacteria identified Cx Nom (U) Morganella morganii sp morgani [facility] Work Phone: CT ABD/PEL WO IVCONon 2021 [facility] Absolute lymphocyte counton 01-24-2022 Lymphocytes Auto (Unsp spec) [#/Vol] 2.13 10*3/uL 0.83-4.51 [facility] Work Phone: Basophil percentageon 2021 Basophil percentage 3.6 mg/dL 2.5-4.9 [facility] Work Phone: [phone] Basophils/100 WBC (Bld) 0.8 % 0-1 [facility] Work Phone: Chloride [Moles/Vol] 102 mmol/L 98-107 [facility]: Eosinophils/100 WBC (Bld) 8.1 % 0-5 [facility] Work Phone: [phone] Glucose [Mass/Vol] 113 mg/dL 74-106 [facility] Work Phone: Comment on above: Fasting Glucose resu lt from 100 to 125 mg/dL suggests IMPAIRED HOMEOSTASIS per A.D.A. criteria. Neutrophils (Bld) [#/Vol] 2.7 10*3/uL 2.0-7.7 [facility] Work Phone: [phone] Neutrophils/100 WBC (Bld) 42.1 % 47-70 [facility] Work Phone: Potassium [Moles/Vol] 3.6 mmol/L 3.5-5.1 [facility] Work Phone: [phone] Sodium [Moles/Vol] 134 mmol/L 136-145 [facility] Work Phone: [phone] WBC (Bld) [#/Vol] 6.3 10*3/uL 4.4-11.0 [facility] Work Phone: Blood erythrocytes count (nu mber/volume)on 01-24-2022 RBC (Bld) [#/Vol] 4.13 10*6/uL 4.6-6.2 [facility] Work Phone: Blood hemoglobin measurement (mass/volume)on 01-24-2022 Hemoglobin (Bld) [Mass/Vol] 12.2 g/dL 13.0-16.5 [facility] Work Phone: [phone] Blood lymphocytes/100 leukoc yteson 01-24-2022 Lymphocytes/100 WBC (Bld) 33.7 % 19-41 [facility] Work Phone: Blood monocytes/100 leukocyt eson 01-24-2022 Monocytes/100 WBC (Bld) 15.0 % 0-10 [facility] Work Phone: Blood platelet mean volumeon 01-24-2022 Platelet mean volume (Bld) [Entitic vol] 10.1 fL 6.2-12.0 [facility] Work Phone: Determination of erythrocyte mean corpuscular volume (MCV)on 01-24-2022 MCV (RBC) [Entitic vol] 87.9 fL 80-94 [facility] Work Phone: Hematocrit Auto (Bld) [Volum e fraction]on 01-24-2022 Hematocrit (Bld) [Volume fraction] 36.3 % 40-54 [facility] Work Phone: Laboratory - Chemistry and C hemistry - challengeon 01-24-2022 CO2 [Moles/Vol] 27.0 mmol/L 21.0-32.0 [facility] Work Phone: Magnesium [Mass/Vol] 2.1 mg/dL 1.6-2.6 [facility] Work Phone: Urea nitrogen/Creatinine [Mass ratio] 10.7 mg/mg 10-20 [facility] Work Phone: Laboratory - Hematology and Cell countson 01-24-2022 Erythrocyte distribution width (RBC) [Entitic vol] 40.0 fL 35.1-43.9 [facility] Work Phone: Erythrocyte distribution width (RBC) [Ratio] 12.5 % 11.6-14.6 [facility] Work Phone: Immature granulocytes/100 WBC (Bld) 0.300 % 0.0-0.9 [facility] Work Phone: Comment on above: IG% - Immature Granu locytes (promyelocytes, myelocytes and metamyelocytes) > 1% indicates that a LEFT SHIFT is Present. MCH (RBC) [Entitic mass] 29.5 pg 27.0-32.0 [facility] Work Phone: Nucleated RBC/100 WBC (Bld) [Ratio] 0 % 0-5 [facility] Work Phone: MCHC Auto (RBC) [Mass/Vol]on 01-24-2022 MCHC (RBC) [Mass/Vol] 33.6 g/dL 32-36 [facility] Work Phone: No Panel Informationon 01-24 Estimated Creatinine Clearance Calc 121.36 ml/min [facility] Work Phone: Estimated GFR (MDRD) Amer 196 mL/min >60 [facility] Work Phone: Comment on above: GFR Calc Estimated GFR (MDRD) Non-Af Amer 162 mL/min >60 [facility] Work Phone: Comment on above: Non- GFR Calc Platelets bldon 01-24-2022 Platelets (Bld) [#/Vol] 358 10*3/uL 150-450 [facility] Work Phone: Serum or plasma calcium jeremiah urement (mass/volume)on 01-24-2022 Calcium [Mass/Vol] 8.4 mg/dL 8.5-10.1 [facility] Work Phone: Serum or plasma creatinine m easurement (mass/volume)on 01-24-2022 Creatinine [Mass/Vol] 0.56 mg/dL 0.70-1.30 [facility] Work Phone: Comment on above: The validity of the calculated GFR & GFRAA in patients over 70 years has not been determined. Clinical correlation is essential. Serum or plasma urea nitroge n measurement (mass/volume)on 01-24-2022 Urea nitrogen [Mass/Vol] 6 mg/dL 7-18 [facility] Work Phone: Thin prep Papanicolaou smear with manual screeningon 01-24-2022 Thin prep Papanicolaou smear with manual screening 5 5-15 [facility] Work Phone: Review by pathologiston 01-12 Pathologist review Vasu (Unsp spec) [Interp] Reviewed [facility] Work Phone: Comment on above: Previous reported re sult: Lissett velazco Edited by: RGOOD on 01/22/22:1327Neutrophilic leukocytosis.Clinical correlation necessary.Rony Simons M.D. 01/22/22 AMENDED REPORT 01/22/22 1327 PATH REV previously reported as: March foll Basophil percentageon 2021 Bilirubin [Mass/Vol] 0.70 mg/dL 0.20-1.00 [facility] Work Phone: Comment on above: For patients on eltr ombopag therapy, use of Dimension [place] TBIL is not recommended. Protein [Mass/Vol] 6.2 g/dL 6.4-8.2 [facility] Work Phone: Direct bilirubinon 2 Bilirubin.direct [Mass/Vol] 0.21 mg/dL 0.00-0.30 [facility] Work Phone: Laboratory - Chemistry and C hemistry - challengeon 01-20-2022 ALP [Catalytic activity/Vol] 58 U/L 45-117 [facility] Work Phone: ALT [Catalytic activity/Vol] 19 U/L 16-61 [facility] Work Phone: Globulin (S) [Mass/Vol] 3.6 g/dL 2.2-4.2 [facility] Work Phone: Serum or plasma albumin jeremiah urement (mass/volume)on 01-20-2022 Albumin [Mass/Vol] 2.6 g/dL 3.2-5.0 [facility] Work Phone: Thin prep Papanicolaou smear with manual screeningon 01-20-2022 Thin prep Papanicolaou smear with manual screening 14 U/L 15-37 [facility] Work Phone: Basophil percentageon 2021 Basophil percentage 5-10 SEEN /hpf [facility] Work Phone: Bilirubin Test strip Ql (U)o n 03-08-2022 Bilirubin Ql (U) Negative Negative [facility] Work Phone: Calcium oxalate crystals det ection in urine sediment by light microscopyon 01-19-2022 Calcium oxalate crystals LM Ql (Urine sed) RARE /hpf [facility] Work Phone: Culture, urineon 01-19-2022 Bacteria identified Cx Nom (U) Culture exhibits no growth. [facility] Work Phone: Ketones Test strip Ql (U)on 01-19-2022 Ketones Ql (U) 15 mg/dl Negative [facility] Work Phone: Mucus LM Ql (Urine sed)on Mucus Ql (Urine sed) 2+ /hpf [facility] Work Phone: Nitrite Test strip Ql (U)on 01-19-2022 Nitrite Ql (U) Negative Negative [facility] Work Phone: Protein Test strip Ql (U)on 01-19-2022 Protein Ql (U) 30 mg/dl Negative [facility] Work Phone: Squamous epithelial cells de tection in urine sediment by light microscopyon 01-19-2022 Epithelial cells.squamous LM Ql (Urine sed) 0-5 SEEN /hpf [facility] Work Phone: Urine blood detectionon - RBC Ql (U) 25 /ul Negative [facility] Work Phone: RBC Ql (U) 0-5 SEEN /hpf [facility] Work Phone: Urine clarityon 01-19-2022 Clarity (U) Sl. Cloudy Clear [facility] Work Phone: Urine color determinationon 01-19-2022 Color (U) Yellow Yellow [facility] Work Phone: Urine glucose detectionon Glucose Ql (U) Normal mg/dl Normal [facility] Work Phone: Urine leukocyte esterase det ection by dipstickon 01-19-2022 Leukocyte esterase Test strip Ql (U) 500 /ul Negative [facility] Work Phone: Urine pHon 01-19-2022 pH (U) 6.0 [pH] [facility] Work Phone: Urine sediment bacteria coun t by microscopy (number/high power field)on 01-19-2022 Bacteria LM.HPF (Urine sed) [#/Area] 1 /[HPF] None Seen [facility] Work Phone: Urine specific gravity measu rementon 01-19-2022 Specific gravity (U) [Rel density] 1.015 [facility] Work Phone: Urobilinogen Auto test strip Ql (U)on 01-19-2022 Urobilinogen Ql (U) Normal mg/dl Normal [facility] Work Phone: Basophil percentageon 2021 Basophil percentage 10-25 SEEN /hpf [facility] Work Phone: Bilirubin Test strip Ql (U)o n 01-10-2022 Bilirubin Ql (U) Negative Negative [facility] Work Phone: Culture, urineon 01-10-2022 Bacteria identified Cx Nom (U) Klebsiella pneumoniae sp pneum [facility] Work Phone: Bacteria identified Cx Nom (U) Citrobacter freundii [facility] Work Phone: Bacteria identified Cx Nom (U) Morganella morganii sp morgani [facility] Work Phone: Bacteria identified Cx Nom (U) Proteus mirabilis [facility] Work Phone: Bacteria identified Cx Nom (U) Streptococcus agalactiae (B) [facility] Work Phone: Ketones Test strip Ql (U)on 01-10-2022 Ketones Ql (U) Negative Negative [facility] Work Phone: Mucus LM Ql (Urine sed)on Mucus Ql (Urine sed) 0 SEEN /hpf [facility] Work Phone: Nitrite Test strip Ql (U)on 01-10-2022 Nitrite Ql (U) Positive Negative [facility] Work Phone: Protein Test strip Ql (U)on 01-10-2022 Protein Ql (U) 30 mg/dl Negative [facility] Work Phone: Squamous epithelial cells de tection in urine sediment by light microscopyon 01-10-2022 Epithelial cells.squamous LM Ql (Urine sed) 0 SEEN /hpf [facility] Work Phone: Urine blood detectionon 12-16 RBC Ql (U) 10 /ul Negative [facility] Work Phone: RBC Ql (U) 0-5 SEEN /hpf [facility] Work Phone: Urine clarityon 01-10-2022 Clarity (U) Clear Clear [facility] Work Phone: Urine color determinationon 01-10-2022 Color (U) Yellow Yellow [facility] Work Phone: Urine glucose detectionon Glucose Ql (U) Normal mg/dl Normal [facility] Work Phone: Urine leukocyte esterase det ection by dipstickon 01-10-2022 Leukocyte esterase Test strip Ql (U) 500 /ul Negative [facility] Work Phone: Urine pHon 01-10-2022 pH (U) 7.0 [pH] [facility] Work Phone: Urine sediment bacteria coun t by microscopy (number/high power field)on 01-10-2022 Bacteria LM.HPF (Urine sed) [#/Area] 3 /[HPF] None Seen [facility] Work Phone: Urine specific gravity measu rementon 01-10-2022 Specific gravity (U) [Rel density] 1.010 [facility] Work Phone: Urobilinogen Auto test strip Ql (U)on 01-10-2022 Urobilinogen Ql (U) Normal mg/dl Normal [facility] Work Phone: Basophil percentageon 2021 Basophil percentage 10-25 SEEN /hpf [facility] Work Phone: Bilirubin Test strip Ql (U)o n 12-12-2021 Bilirubin Ql (U) Negative Negative [facility] Work Phone: Culture, urineon 12-12-2021 Bacteria identified Cx Nom (U) Klebsiella pneumoniae sp pneum [facility] Work Phone: Bacteria identified Cx Nom (U) Morganella morganii sp morgani [facility] Work Phone: Ketones Test strip Ql (U)on 12-12-2021 Ketones Ql (U) Negative Negative [facility] Work Phone: Mucus LM Ql (Urine sed)on Mucus Ql (Urine sed) 0 SEEN /hpf [facility] Work Phone: Nitrite Test strip Ql (U)on 12-12-2021 Nitrite Ql (U) Positive Negative [facility] Work Phone: Protein Test strip Ql (U)on 12-12-2021 Protein Ql (U) 30 mg/dl Negative [facility] Work Phone: Squamous epithelial cells de tection in urine sediment by light microscopyon 12-12-2021 Epithelial cells.squamous LM Ql (Urine sed) 0 SEEN /hpf [facility] Work Phone: Urine blood detectionon 11-15 RBC Ql (U) 250 /ul Negative [facility] Work Phone: RBC Ql (U) 0 SEEN /hpf [facility] Work Phone: Urine clarityon 12-12-2021 Clarity (U) Cloudy Clear [facility] Work Phone: Urine color determinationon 12-12-2021 Color (U) Yellow Yellow [facility] Work Phone: Urine glucose detectionon Glucose Ql (U) Negative Normal [facility] Work Phone: Urine leukocyte esterase det ection by dipstickon 12-12-2021 Leukocyte esterase Test strip Ql (U) 500 /ul Negative [facility] Work Phone: Urine pHon 12-12-2021 pH (U) 8.0 [pH] [facility] Work Phone: Urine sediment bacteria coun t by microscopy (number/high power field)on 12-12-2021 Bacteria LM.HPF (Urine sed) [#/Area] 2 /[HPF] None Seen [facility] Work Phone: Urine specific gravity measu rementon 12-12-2021 Specific gravity (U) [Rel density] 1.015 [facility] Work Phone: Urobilinogen Auto test strip Ql (U)on 12-12-2021 Urobilinogen Ql (U) Normal mg/dl Normal [facility] Work Phone: Culture, urineon 11-17-2021 Bacteria identified Cx Nom (U) Citrobacter freundii [facility] Work Phone: COVID-19 virus antigen assay SARS-CoV-2 (COVID-19) Ag IA.rapid Ql (Resp) [facility] Work Phone: Culture, urine Bacteria identified Cx Nom (U) Morganella morganii sp morgani [facility] Work Phone: Bacteria identified Cx Nom (U) Proteus mirabilis [facility] Work Phone: Bacteria identified Cx Nom (U) Corynebacterium amycolatum [facility] Work Phone: Bacteria identified Cx Nom (U) Escherichia coli [facility] Work Phone: Bacteria identified Cx Nom (U) Mixed Gram Pos & Gram Neg Org [facility] Work Phone: Bacteria identified Cx Nom (U) Citrobacter freundii [facility] Work Phone: Influenza virus A and B and SARS-CoV-2 (COVID-19) Ag panel - Upper respiratory specim SARS-CoV-2 (COVID-19) RNA MOHINI+probe Ql (Resp) [facility] Work Phone: Laboratory - Microbiology an d Antimicrobial susceptibility Bacteria identified Cx Nom (Bld) No growth in 5 days. [facility] Work Phone: No Panel Information SARS-CoV-2 & FLU Antigen (Rapid) [facility] Work Phone: Vital Signs Date Time Vital Sign Value Performing Clinician Terrii rose 07-24-2025 09:26-0400 Body temperature 98.01 [degF] Daniella Most RN Work Phone: [facility] 07-24-2025 09:26-0400 Diastolic blood pressure 84 mm[Hg] Daniella Most RN Work Phone: [facility] 07-24-2025 09:26-0400 Heart rate 76 /min Daniella Most RN Work Phone: [facility] 07-24-2025 09:26-0400 Respiratory rate 16 /min Daniella Most RN Work Phone: [facility] 07-24-2025 09:26-0400 SaO2% (BldA) [Mass fraction] 96 % Daniella Most RN Work Phone: [facility] 07-24-2025 09:26-0400 Systolic blood pressure 132 mm[Hg] Daniella Most RN Work Phone: [facility] 07-10-2025 10:50-0400 Body temperature 97.7 [degF] Daniella Most RN Work Phone: [facility] 07-10-2025 10:50-0400 Diastolic blood pressure 84 mm[Hg] Daniella Most RN Work Phone: [facility] 07-10-2025 10:50-0400 Heart rate 84 /min Daniella Most RN Work Phone: [facility] 07-10-2025 10:50-0400 Respiratory rate 16 /min Daniella Most RN Work Phone: [facility] 07-10-2025 10:50-0400 SaO2% (BldA) [Mass fraction] 98 % Daniella Most RN Work Phone: [facility] 07-10-2025 10:50-0400 Systolic blood pressure 138 mm[Hg] Daniella Most RN Work Phone: [facility] 07-03-2025 09:47-0400 Body temperature 97.81 [degF] Daniella Most RN Work Phone: [facility] 07-03-2025 09:47-0400 Diastolic blood pressure 60 mm[Hg] Daniella Most RN Work Phone: [facility] 07-03-2025 09:47-0400 Heart rate 84 /min Daniella Most RN Work Phone: [facility] 07-03-2025 09:47-0400 Respiratory rate 16 /min Daniella Most RN Work Phone: [facility] 07-03-2025 09:47-0400 SaO2% (BldA) [Mass fraction] 94 % Daniella Most RN Work Phone: [facility] 07-03-2025 09:47-0400 Systolic blood pressure 118 mm[Hg] Daniella Most RN Work Phone: [facility] 06-10-2025 09:48-0400 Body temperature 98.49 [degF] Daniella Most RN Work Phone: [facility] 06-10-2025 09:48-0400 Diastolic blood pressure 88 mm[Hg] Daniella Most RN Work Phone: [facility] 06-10-2025 09:48-0400 Heart rate 92 /min Daniella Most RN Work Phone: [facility] 06-10-2025 09:48-0400 Respiratory rate 16 /min Daniella Most RN Work Phone: [facility] 06-10-2025 09:48-0400 SaO2% (BldA) [Mass fraction] 96 % Daniella Most RN Work Phone: [facility] 06-10-2025 09:48-0400 Systolic blood pressure 142 mm[Hg] Daniella Most RN Work Phone: [facility] 06-07-2025 09:34-0400 Diastolic blood pressure 94 mm[Hg] Brea Florentino MD Work Phone: [facility] 06-07-2025 09:34-0400 Heart rate 81 /min Brea Florentino MD Work Phone: [facility] 06-07-2025 09:34-0400 Systolic blood pressure 144 mm[Hg] Brea Florentino MD Work Phone: [facility] 05-10-2025 10:31-0400 Body temperature 98.4 [degF] Daniella Most RN Work Phone: [facility] 05-10-2025 10:31-0400 Diastolic blood pressure 78 mm[Hg] Daniella Most RN Work Phone: [facility] 05-10-2025 10:31-0400 Heart rate 84 /min Daniella Most RN Work Phone: [facility] 05-10-2025 10:31-0400 Respiratory rate 16 /min Daniella Most RN Work Phone: [facility] 05-10-2025 10:31-0400 SaO2% (BldA) [Mass fraction] 98 % Daniella Most RN Work Phone: [facility] 05-10-2025 10:31-0400 Systolic blood pressure 126 mm[Hg] Daniella Most RN Work Phone: [facility] 04-25-2025 09:49-0400 Body temperature 97.7 [degF] Daniella Most RN Work Phone: [facility] 04-25-2025 09:49-0400 Diastolic blood pressure 70 mm[Hg] Daniella Most RN Work Phone: [facility] 04-25-2025 09:49-0400 Heart rate 76 /min Daniella Most RN Work Phone: [facility] 04-25-2025 09:49-0400 Respiratory rate 16 /min Daniella Most RN Work Phone: [facility] 04-25-2025 09:49-0400 SaO2% (BldA) [Mass fraction] 96 % Daniella Most RN Work Phone: [facility] 04-25-2025 09:49-0400 Systolic blood pressure 122 mm[Hg] Daniella Most RN Work Phone: [facility] 04-24-2025 09:30-0400 Body temperature 97.9 [degF] Daniella Most RN Work Phone: [facility] 04-24-2025 09:30-0400 Diastolic blood pressure 76 mm[Hg] Daniella Most RN Work Phone: [facility] 04-24-2025 09:30-0400 Heart rate 80 /min Daniella Most RN Work Phone: [facility] 04-24-2025 09:30-0400 Respiratory rate 16 /min Daniella Most RN Work Phone: [facility] 04-24-2025 09:30-0400 SaO2% (BldA) [Mass fraction] 96 % Daniella Most RN Work Phone: [facility] 04-24-2025 09:30-0400 Systolic blood pressure 122 mm[Hg] Daniella Most RN Work Phone: [facility] 04-10-2025 09:22-0400 Body temperature 98.2 [degF] Daniella Most RN Work Phone: [facility] 04-10-2025 09:22-0400 Diastolic blood pressure 82 mm[Hg] Daniella Most RN Work Phone: [facility] 04-10-2025 09:22-0400 Heart rate 80 /min Daniella Most RN Work Phone: [facility] 04-10-2025 09:22-0400 Respiratory rate 16 /min Daniella Most RN Work Phone: [facility] 04-10-2025 09:22-0400 SaO2% (BldA) [Mass fraction] 96 % Daniella Most RN Work Phone: [facility] 04-10-2025 09:22-0400 Systolic blood pressure 124 mm[Hg] Daniella Most RN Work Phone: [facility] 03-13-2025 10:02-0400 Body temperature 97.9 [degF] Daniella Most RN Work Phone: [facility] 03-13-2025 10:02-0400 Diastolic blood pressure 84 mm[Hg] Daniella Most RN Work Phone: [facility] 03-13-2025 10:02-0400 Heart rate 72 /min Daniella Most RN Work Phone: [facility] 03-13-2025 10:02-0400 Respiratory rate 16 /min Daniella Most RN Work Phone: [facility] 03-13-2025 10:02-0400 SaO2% (BldA) [Mass fraction] 96 % Daniella Most RN Work Phone: [facility] 03-13-2025 10:02-0400 Systolic blood pressure 132 mm[Hg] Daniella Most RN Work Phone: [facility] 02-08-2025 09:34-0400 Body temperature 97.9 [degF] Daniella Most RN Work Phone: [facility] 02-08-2025 09:34-0400 Diastolic blood pressure 84 mm[Hg] Daniella Most RN Work Phone: [facility] 02-08-2025 09:34-0400 Heart rate 76 /min Daniella Most RN Work Phone: [facility] 02-08-2025 09:34-0400 Respiratory rate 16 /min Daniella Most RN Work Phone: [facility] 02-08-2025 09:34-0400 SaO2% (BldA) [Mass fraction] 97 % Daniella Most RN Work Phone: [facility] 02-08-2025 09:34-0400 Systolic blood pressure 136 mm[Hg] Daniella Most RN Work Phone: [facility] 01-09-2025 09:46-0500 Body temperature 97 [degF] Daniella Most RN Work Phone: [facility] 01-09-2025 09:46-0500 Diastolic blood pressure 82 mm[Hg] Daniella Most RN Work Phone: [facility] 01-09-2025 09:46-0500 Heart rate 72 /min Daniella Most RN Work Phone: [facility] 01-09-2025 09:46-0500 Respiratory rate 16 /min Daniella Most RN Work Phone: [facility] 01-09-2025 09:46-0500 SaO2% (BldA) [Mass fraction] 97 % Daniella Most RN Work Phone: [facility] 01-09-2025 09:46-0500 Systolic blood pressure 128 mm[Hg] Daniella Most RN Work Phone: [facility] 12-13-2024 09:37-0500 Body temperature 97.39 [degF] Daniella Most RN Work Phone: [facility] 12-13-2024 09:37-0500 Diastolic blood pressure 84 mm[Hg] Adniella Most RN Work Phone: [facility] 12-13-2024 09:37-0500 Heart rate 72 /min Daniella Most RN Work Phone: [facility] 12-13-2024 09:37-0500 Respiratory rate 20 /min Daniella Most RN Work Phone: [facility] 12-13-2024 09:37-0500 SaO2% (BldA) [Mass fraction] 96 % Daniella Most RN Work Phone: [facility] 12-13-2024 09:37-0500 Systolic blood pressure 136 mm[Hg] Daniella Most RN Work Phone: [facility] 11-16-2024 09:45-0500 Body temperature 98.1 [degF] Daniella Most RN Work Phone: [facility] 11-16-2024 09:45-0500 Diastolic blood pressure 84 mm[Hg] Daniella Most RN Work Phone: [facility] 11-16-2024 09:45-0500 Heart rate 80 /min Daniella Most RN Work Phone: [facility] 11-16-2024 09:45-0500 Respiratory rate 16 /min Daniella Most RN Work Phone: [facility] 11-16-2024 09:45-0500 SaO2% (BldA) [Mass fraction] 99 % Daniella Most RN Work Phone: [facility] 11-16-2024 09:45-0500 Systolic blood pressure 132 mm[Hg] Daniella Most RN Work Phone: [facility] 10-17-2024 09:47-0500 Body temperature 97.39 [degF] Daniella Most RN Work Phone: [facility] 10-17-2024 09:47-0500 Diastolic blood pressure 82 mm[Hg] Daniella Most RN Work Phone: [facility] 10-17-2024 09:47-0500 Heart rate 76 /min Daniella Most RN Work Phone: [facility] 10-17-2024 09:47-0500 Respiratory rate 16 /min Daniella Most RN Work Phone: [facility] 10-17-2024 09:47-0500 SaO2% (BldA) [Mass fraction] 98 % Daniella Most RN Work Phone: [facility] 10-17-2024 09:47-0500 Systolic blood pressure 124 mm[Hg] Daniella Most RN Work Phone: [facility] 10-10-2024 16:51-0500 Body temperature 98.49 [degF] Daniella Most RN Work Phone: [facility] 10-10-2024 16:51-0500 Diastolic blood pressure 64 mm[Hg] Daniella Most RN Work Phone: [facility] 10-10-2024 16:51-0500 Heart rate 80 /min Daniella Most RN Work Phone: [facility] 10-10-2024 16:51-0500 Respiratory rate 20 /min Daniella Most RN Work Phone: [facility] 10-10-2024 16:51-0500 SaO2% (BldA) [Mass fraction] 99 % Daniella Most RN Work Phone: [facility] 10-10-2024 16:51-0500 Systolic blood pressure 110 mm[Hg] Daniella Most RN Work Phone: [facility] 09-19-2024 09:21-0500 Body temperature 98.01 [degF] Daniella Most RN Work Phone: [facility] 09-19-2024 09:21-0500 Diastolic blood pressure 84 mm[Hg] Daniella Most RN Work Phone: [facility] 09-19-2024 09:21-0500 Heart rate 88 /min Daniella Most RN Work Phone: [facility] 09-19-2024 09:21-0500 Respiratory rate 16 /min Daniella Most RN Work Phone: [facility] 09-19-2024 09:21-0500 SaO2% (BldA) [Mass fraction] 96 % Daniella Most RN Work Phone: [facility] 09-19-2024 09:21-0500 Systolic blood pressure 132 mm[Hg] Daniella Most RN Work Phone: [facility] 08-24-2024 14:16-0400 Body temperature 98.6 [degF] Shaila Tapia RN Work Phone: [facility] 08-24-2024 14:16-0400 Diastolic blood pressure 70 mm[Hg] Shaila Tapia RN Work Phone: [facility] 08-24-2024 14:16-0400 Heart rate 83 /min Shaila Tapia RN Work Phone: [facility] 08-24-2024 14:16-0400 Respiratory rate 16 /min Shaila Tapia RN Work Phone: [facility] 08-24-2024 14:16-0400 SaO2% (BldA) [Mass fraction] 98 % Shaila Tapia RN Work Phone: [facility] 08-24-2024 14:16-0400 Systolic blood pressure 124 mm[Hg] Shaila Tapia RN Work Phone: [facility] 08-15-2024 09:17-0400 Body temperature 97.9 [degF] Daniellaelroy Garrett RN Work Phone: [facility] 08-15-2024 09:17-0400 Diastolic blood pressure 82 mm[Hg] Daniellaelroy Garrett RN Work Phone: [facility] 08-15-2024 09:17-0400 Heart rate 76 /min Daniella Most RN Work Phone: [facility] 08-15-2024 09:17-0400 Respiratory rate 16 /min Daniella Most RN Work Phone: [facility] 08-15-2024 09:17-0400 SaO2% (BldA) [Mass fraction] 96 % Daniellaelroy Garrett RN Work Phone: [facility] 08-15-2024 09:17-0400 Systolic blood pressure 124 mm[Hg] Daniella Most RN Work Phone: [facility] 08-03-2024 09:44-0400 Body temperature 97.9 [degF] Daniella Most RN Work Phone: [facility] 08-03-2024 09:44-0400 Diastolic blood pressure 82 mm[Hg] Daniella Most RN Work Phone: [facility] 08-03-2024 09:44-0400 Heart rate 76 /min Daniella Most RN Work Phone: [facility] 08-03-2024 09:44-0400 Respiratory rate 20 /min Daniella Most RN Work Phone: [facility] 08-03-2024 09:44-0400 SaO2% (BldA) [Mass fraction] 97 % Daniella Most RN Work Phone: [facility] 08-03-2024 09:44-0400 Systolic blood pressure 126 mm[Hg] Daniella Most RN Work Phone: [facility] 07-05-2024 09:52-0400 Body temperature 97.81 [degF] Daniella Most RN Work Phone: [facility] 07-05-2024 09:52-0400 Diastolic blood pressure 80 mm[Hg] Daniella Most RN Work Phone: [facility] 07-05-2024 09:52-0400 Heart rate 76 /min Daniella Most RN Work Phone: [facility] 07-05-2024 09:52-0400 Respiratory rate 16 /min Daniella Most RN Work Phone: [facility] 07-05-2024 09:52-0400 SaO2% (BldA) [Mass fraction] 96 % Daniella Most RN Work Phone: [facility] 07-05-2024 09:52-0400 Systolic blood pressure 122 mm[Hg] Daniella Most RN Work Phone: [facility] 07-02-2024 14:06-0400 Body temperature 97 [degF] Nayely Nazario MD Work Phone: [facility] 07-02-2024 14:06-0400 Diastolic blood pressure 109 mm[Hg] Nayely Nazario MD Work Phone: [facility] Comment on above: 2nd BP reading 152/91 07-02-2024 14:06-0400 Heart rate 71 /min Nayely Nazario MD Work Phone: [facility] 07-02-2024 14:06-0400 SaO2% (BldA) [Mass fraction] 99 % Nayely Nazario MD Work Phone: [facility] 07-02-2024 14:06-0400 Systolic blood pressure 144 mm[Hg] Nayely Nazario MD Work Phone: [facility] Comment on above: 2nd BP reading 152/91 06-27-2024 09:09-0400 Body temperature 97.2 [degF] Daniellaelroy Garrett RN Work Phone: [facility] 06-27-2024 09:09-0400 Diastolic blood pressure 86 mm[Hg] Daniella Garrett RN Work Phone: [facility] 06-27-2024 09:09-0400 Heart rate 80 /min Daniella Garrett RN Work Phone: [facility] 06-27-2024 09:09-0400 Respiratory rate 16 /min Daniella Garrett RN Work Phone: [facility] 06-27-2024 09:09-0400 SaO2% (BldA) [Mass fraction] 97 % Daniellaelroy Garrett RN Work Phone: [facility] 06-27-2024 09:09-0400 Systolic blood pressure 132 mm[Hg] Daniella Garrett RN Work Phone: [facility] 06-25-2024 14:32-0400 Diastolic blood pressure 90 mm[Hg] Yvette Gao SENIOR BUSINESS MANAGER.[employer] Work Phone: [facility] 06-25-2024 14:32-0400 Heart rate 82 /min Yvette Haagen SENIOR BUSINESS MANAGER.[employer] Work Phone: [facility] 06-25-2024 14:32-0400 Respiratory rate 16 /min Yvette Haagen SENIOR BUSINESS MANAGER.[employer] Work Phone: [facility] 06-25-2024 14:32-0400 SaO2% (BldA) [Mass fraction] 98 % Yvette Mikeagen SENIOR BUSINESS MANAGER.[employer] Work Phone: [facility] 06-25-2024 14:32-0400 Systolic blood pressure 138 mm[Hg] Yvette Gao [employer] Work Phone: [facility] 06-20-2024 15:18-0400 Body temperature 98.01 [degF] Daniella Garrett RN Work Phone: [facility] 06-20-2024 15:18-0400 Diastolic blood pressure 70 mm[Hg] Daniella Garrett RN Work Phone: [facility] 06-20-2024 15:18-0400 Heart rate 84 /min Daniella Garrett RN Work Phone: [facility] 06-20-2024 15:18-0400 Respiratory rate 16 /min Daniella Garrett RN Work Phone: [facility] 06-20-2024 15:18-0400 SaO2% (BldA) [Mass fraction] 97 % Daniella Garrett RN Work Phone: [facility] 06-20-2024 15:18-0400 Systolic blood pressure 118 mm[Hg] Daniella Garrett RN Work Phone: [facility] 06-17-2024 12:01-0400 Body mass index (BMI) [Ratio] 21.08 kg/m2 Maddie Pineda RN Work Phone: [facility] 06-17-2024 12:01-0400 Body temperature 98.4 [degF] Maddie Pineda RN Work Phone: [facility] 06-17-2024 12:01-0400 Body weight 53.98 kg Maddie Pineda RN Work Phone: [facility] Comment on above: Reported 06-17-2024 12:01-0400 Diastolic blood pressure 86 mm[Hg] Maddie Pineda RN Work Phone: [facility] 06-17-2024 12:01-0400 Heart rate 78 /min Maddie Pineda RN Work Phone: [facility] 06-17-2024 12:01-0400 Respiratory rate 18 /min Maddie Pineda RN Work Phone: [facility] 06-17-2024 12:01-0400 SaO2% (BldA) [Mass fraction] 97 % Maddie Pineda RN Work Phone: [facility] 06-17-2024 12:01-0400 Systolic blood pressure 128 mm[Hg] Maddie Pineda RN Work Phone: [facility] 04-10-2024 10:35-0400 Body height 160 cm Paco Murillo MD Work Phone: [facility] 04-10-2024 10:35-0400 Body mass index (BMI) [Ratio] 21.08 kg/m2 Paco Murillo MD Work Phone: [facility] 04-10-2024 10:35-0400 Body temperature 97.39 [degF] Paco Murillo MD Work Phone: [facility] 04-10-2024 10:35-0400 Body weight 53.98 kg Paco Murillo MD Work Phone: [facility] 04-10-2024 10:35-0400 Diastolic blood pressure 86 mm[Hg] Paco Murillo MD Work Phone: [facility] 04-10-2024 10:35-0400 Heart rate 83 /min Paco Murillo MD Work Phone: [facility] 04-10-2024 10:35-0400 Systolic blood pressure 122 mm[Hg] Paco Murillo MD Work Phone: [facility] 04-05-2024 13:31-0400 Body height 160 cm Pac 6 Work Phone: [facility] 04-05-2024 13:31-0400 Body mass index (BMI) [Ratio] 21.08 kg/m2 Pac 6 Work Phone: [facility] 04-05-2024 13:31-0400 Body temperature 98.01 [degF] Pac 6 Work Phone: [facility] 04-05-2024 13:31-0400 Body weight 53.98 kg Pacc 6 Work Phone: [facility] Comment on above: pt stated 04-05-2024 13:31-0400 Diastolic blood pressure 77 mm[Hg] Pacc 6 Work Phone: [facility] 04-05-2024 13:31-0400 Heart rate 80 /min Pacc 6 Work Phone: [facility] 04-05-2024 13:31-0400 SaO2% (BldA) [Mass fraction] 98 % Pacc 6 Work Phone: [facility] 04-05-2024 13:31-0400 Systolic blood pressure 129 mm[Hg] Pacc 6 Work Phone: [facility] 04-05-2024 11:38-0400 Diastolic blood pressure 87 mm[Hg] Isadora Garvin RN Work Phone: [facility] 04-05-2024 11:38-0400 Heart rate 81 /min Isadora Garvin RN Work Phone: [facility] 04-05-2024 11:38-0400 Systolic blood pressure 128 mm[Hg] Isadora Garvin RN Work Phone: [facility] 04-03-2024 12:02-0400 Body temperature 97.59 [degF] Daphney Buckk PA-C Work Phone: [facility] 04-03-2024 12:02-0400 Diastolic blood pressure 84 mm[Hg] Daphney Buckk PA-C Work Phone: [facility] 04-03-2024 12:02-0400 Heart rate 73 /min Daphneyelizabeth Buckk PA-C Work Phone: [facility] 04-03-2024 12:02-0400 Respiratory rate 18 /min Daphneyelizabeth Buckk PA-C Work Phone: [facility] 04-03-2024 12:02-0400 SaO2% (BldA) [Mass fraction] 99 % Daphney Buckk PA-C Work Phone: [facility] 04-03-2024 12:02-0400 Systolic blood pressure 125 mm[Hg] Daphney Castellon PA-C Work Phone: [facility] 02-21-2024 12:32-0400 Diastolic blood pressure 84 mm[Hg] Brea Florentino MD Work Phone: [facility] 02-21-2024 12:32-0400 Heart rate 87 /min Brea Florentino MD Work Phone: [facility] 02-21-2024 12:32-0400 Systolic blood pressure 127 mm[Hg] Brea Florentino MD Work Phone: [facility] 11-28-2023 19:35-0500 Heart rate 97 /min Dr. Clifford Estes Work Phone: [facility] 11-28-2023 16:23-0500 Body temperature 98.5 [degF] Dr. Clifford Estes Work Phone: [facility] 11-28-2023 14:20-0500 Body height 160.[address] Clifford Estes Work Phone: [facility] 11-28-2023 14:20-0500 Diastolic blood pressure 80 mm[Hg] Dr. Clifford Estes Work Phone: [facility] 11-28-2023 14:20-0500 Respiratory rate 18 /min Dr. Clifford Estes Work Phone: [facility] 11-28-2023 14:20-0500 SaO2% (BldA) [Mass fraction] 96 % Dr. Clifford Estes Work Phone: [facility] 11-28-2023 14:20-0500 Systolic blood pressure 118 mm[Hg] Dr. Clifford Estes Work Phone: [facility] 11-01-2023 18:53-0500 Body height 160.[address] Clifford Estes Work Phone: [facility] 11-01-2023 18:53-0500 Body temperature 97.7 [degF] Dr. Clifford Estes Work Phone: [facility] 11-01-2023 18:53-0500 Diastolic blood pressure 107 mm[Hg] Dr. Clifford Estes Work Phone: [facility] 11-01-2023 18:53-0500 Heart rate 93 /min Dr. Clifford Estes Work Phone: [facility] 11-01-2023 18:53-0500 Respiratory rate 18 /min Dr. Clifford Estes Work Phone: 0(136)437-492185 [place] [address] 11-01-2023 18:53-0500 SaO2% (BldA) [Mass fraction] 100 % Dr. Clifford Estes Work Phone: [facility] 11-01-2023 18:53-0500 Systolic blood pressure 166 mm[Hg] Dr. Clifford Estes Work Phone: [facility] 10-04-2023 14:48-0500 Diastolic blood pressure 90 mm[Hg] Yvette Haagen SENIOR BUSINESS MANAGER.[employer] Work Phone: [facility] 10-04-2023 14:48-0500 Heart rate 87 /min Yvette Haagen SENIOR BUSINESS MANAGER.[employer]ISH[employer] Work Phone: [facility] 10-04-2023 14:48-0500 Respiratory rate 16 /min Yvette Haagen SENIOR BUSINESS MANAGER.[employer]ISH[employer] Work Phone: [facility] 10-04-2023 14:48-0500 SaO2% (BldA) [Mass fraction] 98 % Yvette Haagen SENIOR BUSINESS MANAGER.[employer]ISH[employer] Work Phone: [facility] 10-04-2023 14:48-0500 Systolic blood pressure 132 mm[Hg] Yvette Haagen SENIOR BUSINESS MANAGER.[employer] Work Phone: [facility] 09-22-2023 14:23-0500 Body temperature 97 [degF] Dr. Clifford Estes Work Phone: [facility] 09-22-2023 14:23-0500 Diastolic blood pressure 82 mm[Hg] Dr. Clifford Estes Work Phone: 5(804)532-817922 [place] [address] 09-22-2023 14:23-0500 Heart rate 91 /min Dr. Clifford Estes Work Phone: 4(720)449-866822 [place] [address] 09-22-2023 14:23-0500 Respiratory rate 16 /min Dr. Clifford Estes Work Phone: 8(463)162-091822 [place] [address] 09-22-2023 14:23-0500 Systolic blood pressure 126 mm[Hg] Dr. Clifford Estes Work Phone: 5(790)737-659222 [place] [address] 09-22-2023 08:17-0500 SaO2% (BldA) [Mass fraction] 98 % Dr. Clifford Estes Work Phone: 1(111)853-790522 [place] [address] 09-21-2023 14:37-0500 Body height 160.[address] Clifford Estes Work Phone: 5(883)850-772722 [place] [address] 09-21-2023 14:37-0500 Body weight 48.[address] Clifford Estes Work Phone: 2(856)542-475222 [place] [address] 09-21-2023 06:00-0500 Body mass index (BMI) [Ratio] 18.8 kg/m2 Dr. Clifford Estes Work Phone: 9(010)019-802522 [place] [address] 09-20-2023 21:43-0500 Body temperature 98.2 [degF] Dr. Clifford Estes Work Phone: 5(596)010-441922 [place] [address] 09-20-2023 21:43-0500 Diastolic blood pressure 70 mm[Hg] Dr. Clifford Estes Work Phone: 6(000)723-564122 [place] [address] 09-20-2023 21:43-0500 Heart rate 91 /min Dr. Clifford Estes Work Phone: 2(976)375-090822 [place] [address] 09-20-2023 21:43-0500 Respiratory rate 13 /min Dr. Clifford Estes Work Phone: 1(252)146-180422 [place] [address] 09-20-2023 21:43-0500 SaO2% (BldA) [Mass fraction] 96 % Dr. Clifford Estes Work Phone: 5(159)896-477622 [place] [address] 09-20-2023 21:43-0500 Systolic blood pressure 111 mm[Hg] Dr. Clifford Estes Work Phone: 4(242)812-490822 [place] [address] 09-20-2023 18:49-0500 Body height 160.[address] Clifford Estes Work Phone: 9(218)387-948722 [place] [address] 08-15-2023 16:11-0400 Body temperature 97.8 [degF] Dr. Clifford Estes Work Phone: 6(222)826-110022 [place] [address] 08-15-2023 16:11-0400 Diastolic blood pressure 81 mm[Hg] Dr. Clifford Estes Work Phone: 5(650)104-710222 [place] [address] 08-15-2023 16:11-0400 Heart rate 96 /min Dr. Clifford Estes Work Phone: 6(251)090-676022 [place] [address] 08-15-2023 16:11-0400 Respiratory rate 18 /min Dr. Clifford Estes Work Phone: 9(332)648-004222 [place] [address] 08-15-2023 16:11-0400 SaO2% (BldA) [Mass fraction] 98 % Dr. Clifford Estes Work Phone: 4(822)109-920322 [place] [address] 08-15-2023 16:11-0400 Systolic blood pressure 126 mm[Hg] Dr. Clifford Estes Work Phone: 2(691)596-958622 [place] [address] 08-10-2023 14:04-0400 Body height 160.[address] Clifford Estes Work Phone: 5(195)805-333322 [place] [address] 08-10-2023 14:04-0400 Body weight 56.[address] Clifford Estes Work Phone: 7(448)616-442822 [place] [address] 08-09-2023 15:44-0400 Body mass index (BMI) [Ratio] 22.1 kg/m2 Dr. Clifford Estes Work Phone: 6(895)038-873922 [place] [address] 08-09-2023 14:43-0400 Diastolic blood pressure 87 mm[Hg] Dr. Clifford Estes Work Phone: 3(524)933-946422 [place] [address] 08-09-2023 14:43-0400 Heart rate 91 /min Dr. Clifford Estes Work Phone: [facility] 08-09-2023 14:43-0400 Respiratory rate 16 /min Dr. Clifford Estes Work Phone: [facility] 08-09-2023 14:43-0400 SaO2% (BldA) [Mass fraction] 97 % Dr. Clifford Estes Work Phone: [facility] 08-09-2023 14:43-0400 Systolic blood pressure 123 mm[Hg] Dr. Clifford Estes Work Phone: [facility] 08-09-2023 11:00-0400 Body temperature 97.4 [degF] Dr. Clifford Estes Work Phone: [facility] 08-09-2023 00:18-0400 Body height 160.[address] Clifford Estes Work Phone: [facility] 08-09-2023 00:18-0400 Body mass index (BMI) [Ratio] 22.1 kg/m2 Dr. Clifford Estes Work Phone: [facility] 08-09-2023 00:18-0400 Body weight 56.[address] Clifford Estes Work Phone: [facility] 08-03-2023 15:04-0400 Diastolic blood pressure 88 mm[Hg] Clifofrd Estes MD Work Phone: [facility] 08-03-2023 15:04-0400 Heart rate 84 /min Clifford Estes MD Work Phone: [facility] 08-03-2023 15:04-0400 SaO2% (BldA) [Mass fraction] 97 % Clifford Estes MD Work Phone: [facility] 08-03-2023 15:04-0400 Systolic blood pressure 130 mm[Hg] Clifford Estes MD Work Phone: [facility] 06-13-2023 15:30-0400 Body height 160 cm Liz Villarreal PA-C Work Phone: [facility] 06-13-2023 15:30-0400 Body temperature 97 [degF] Liz Longbons PA-C Work Phone: [facility] 06-13-2023 15:30-0400 Body weight 56.25 kg Liz Longbons PA-C Work Phone: [facility] 06-13-2023 15:30-0400 Diastolic blood pressure 89 mm[Hg] Liz Longbons PA-C Work Phone: [facility] 06-13-2023 15:30-0400 Heart rate 80 /min Liz Longbons PA-C Work Phone: [facility] 06-13-2023 15:30-0400 SaO2% (BldA) [Mass fraction] 98 % Liz Longbons PA-C Work Phone: [facility] 06-13-2023 15:30-0400 Systolic blood pressure 125 mm[Hg] Liz Longbons PA-C Work Phone: [facility] 05-19-2023 15:30-0400 Body height 160 cm Clifford Estes MD Work Phone: [facility] 05-19-2023 15:30-0400 Body weight 56.25 kg Clifford Estes MD Work Phone: [facility] 05-19-2023 15:30-0400 Diastolic blood pressure 64 mm[Hg] Clifford Estes MD Work Phone: [facility] 05-19-2023 15:30-0400 Heart rate 94 /min Clifford Estes MD Work Phone: [facility] 05-19-2023 15:30-0400 SaO2% (BldA) [Mass fraction] 96 % Clifford Estes MD Work Phone: [facility] 05-19-2023 15:30-0400 Systolic blood pressure 108 mm[Hg] Clifford Estes MD Work Phone: [facility] 05-16-2023 10:25-0400 Body temperature 98 [degF] Dr. Clifford Estes Work Phone: 3(296)781-444122 [place] [address] 05-16-2023 10:25-0400 Diastolic blood pressure 97 mm[Hg] Dr. Clifford Estes Work Phone: 6(277)174-813122 [place] [address] 05-16-2023 10:25-0400 Heart rate 95 /min Dr. Clifford Estes Work Phone: 5(998)305-603922 [place] [address] 05-16-2023 10:25-0400 Respiratory rate 18 /min Dr. Clifford Estes Work Phone: 0(837)448-904622 [place] [address] 05-16-2023 10:25-0400 SaO2% (BldA) [Mass fraction] 96 % Dr. Clifford Estes Work Phone: 9(405)732-486122 [place] [address] 05-16-2023 10:25-0400 Systolic blood pressure 136 mm[Hg] Dr. Clifford Estes Work Phone: 6(464)271-826122 [place] [address] 05-11-2023 15:02-0400 Body height 160.[address] Clifford Estes Work Phone: 2(365)250-390622 [place] [address] 05-11-2023 15:02-0400 Body weight 56.[address] Clifford Estes Work Phone: 3(586)897-845222 [place] [address] 05-09-2023 09:58-0400 Body mass index (BMI) [Ratio] 21.9 kg/m2 Dr. Clifford Estes Work Phone: 5(241)032-536022 [place] [address] 04-02-2023 21:17-0400 Body temperature 99.5 [degF] Dr. Clifford Estes Work Phone: 4(056)943-975122 [place] [address] 04-02-2023 21:17-0400 Diastolic blood pressure 87 mm[Hg] Dr. Clifford Estes Work Phone: 3(095)105-913622 [place] [address] 04-02-2023 21:17-0400 Heart rate 88 /min Dr. Clifford Estes Work Phone: 9(328)867-097022 [place] [address] 04-02-2023 21:17-0400 Respiratory rate 16 /min Dr. Clifford Estes Work Phone: 6(159)299-169622 [place] [address] 04-02-2023 21:17-0400 SaO2% (BldA) [Mass fraction] 96 % Dr. Clifford Estes Work Phone: 6(249)142-431722 [place] [address] 04-02-2023 21:17-0400 Systolic blood pressure 129 mm[Hg] Dr. Clifford Estes Work Phone: 9(799)155-187222 [place] [address] 04-02-2023 11:37-0400 Body mass index (BMI) [Ratio] 21.9 kg/m2 Dr. Clifford Estes Work Phone: 5(658)066-457822 [place] [address] 04-02-2023 11:37-0400 Body weight 56.[address] Clifford Estes Work Phone: 6(937)564-102022 [place] [address] 03-30-2023 20:34-0400 Respiratory rate 18 /min Dr. Clifford Estes Work Phone: 8(296)980-146122 [place] [address] 03-30-2023 16:35-0400 Body temperature 97.5 [degF] Dr. Clifford Estes Work Phone: 4(091)306-287922 [place] [address] 03-30-2023 16:35-0400 Diastolic blood pressure 98 mm[Hg] Dr. Clifford Estes Work Phone: 6(040)703-922422 [place] [address] 03-30-2023 16:35-0400 Heart rate 80 /min Dr. Clifford Estes Work Phone: 4(680)072-666222 [place] [address] 03-30-2023 16:35-0400 SaO2% (BldA) [Mass fraction] 100 % Dr. Clifford Estes Work Phone: 4(243)092-761622 [place] [address] 03-30-2023 16:35-0400 Systolic blood pressure 141 mm[Hg] Dr. Clifford Estes Work Phone: 7(289)454-593422 [place] [address] 02-24-2023 14:40-0400 Body temperature 98.7 [degF] Dr. Clifford Estes Work Phone: 6(329)396-975022 [place] [address] 02-24-2023 14:40-0400 Diastolic blood pressure 84 mm[Hg] Dr. Clifford Estes Work Phone: 6(830)111-723822 [place] [address] 02-24-2023 14:40-0400 Heart rate 82 /min Dr. Clifford Estes Work Phone: [facility] 02-24-2023 14:40-0400 Respiratory rate 16 /min Dr. Clifford Estes Work Phone: [facility] 02-24-2023 14:40-0400 SaO2% (BldA) [Mass fraction] 98 % Dr. Clifford Estes Work Phone: [facility] 02-24-2023 14:40-0400 Systolic blood pressure 137 mm[Hg] Dr. Clifford Estes Work Phone: [facility] 02-24-2023 05:53-0400 Body mass index (BMI) [Ratio] 21.2 kg/m2 Dr. Clifford Estes Work Phone: [facility] 02-24-2023 05:53-0400 Body weight 54.[address] Clifford Estes Work Phone: [facility] 02-21-2023 12:34-0400 Body height 160.[address] Clifford Estes Work Phone: [facility] 02-20-2023 20:11-0400 Body temperature 97.6 [degF] [facility] 02-20-2023 20:11-0400 Diastolic blood pressure 90 mm[Hg] [facility] 02-20-2023 20:11-0400 Heart rate 81 /min [facility] 02-20-2023 20:11-0400 Respiratory rate 22 /min [facility] 02-20-2023 20:11-0400 SaO2% (BldA) [Mass fraction] 97 % [facility] 02-20-2023 20:11-0400 Systolic blood pressure 138 mm[Hg] [facility] 02-20-2023 16:33-0400 Body mass index (BMI) [Ratio] 24.7 kg/m2 [facility] 02-20-2023 16:33-0400 Body weight 63.5 kg [facility] 02-20-2023 15:22-0400 Body height 160.02 cm [facility] 02-15-2023 05:20-0400 Body height 159.99 cm [facility] 02-15-2023 05:20-0400 Body mass index (BMI) [Ratio] 21.7 kg/m2 [facility] 02-15-2023 05:20-0400 Body temperature 98.8 [degF] [facility] 02-15-2023 05:20-0400 Body weight 55.6 kg [facility] 02-15-2023 05:20-0400 Diastolic blood pressure 96 mm[Hg] [facility] 02-15-2023 05:20-0400 Heart rate 85 /min [facility] 02-15-2023 05:20-0400 Respiratory rate 18 /min [facility] 02-15-2023 05:20-0400 SaO2% (BldA) [Mass fraction] 98 % [facility] 02-15-2023 05:20-0400 Systolic blood pressure 148 mm[Hg] [facility] 12-11-2022 06:20-0500 Diastolic blood pressure 81 mm[Hg] Dr. Clifford Estes Work Phone: [facility] 12-11-2022 06:20-0500 Respiratory rate 16 /min Dr. Clifford Estes Work Phone: [facility] 12-11-2022 06:20-0500 SaO2% (BldA) [Mass fraction] 95 % Dr. Clifford Estes Work Phone: [facility] 12-11-2022 06:20-0500 Systolic blood pressure 126 mm[Hg] Dr. Clifford Estes Work Phone: [facility] 12-11-2022 06:19-0500 Body temperature 97.6 [degF] Dr. Clifford Estes Work Phone: [facility] 12-11-2022 06:19-0500 Heart rate 86 /min Dr. Clifford Estes Work Phone: [facility] 12-10-2022 22:14-0500 Body height 160.[address] Clifford Estes Work Phone: 4(280)684-230985 [place] [address] 12-10-2022 22:14-0500 Body mass index (BMI) [Ratio] 21 kg/m2 Dr. Clifford Estes Work Phone: 7(515)441-581922 [place] [address] 12-10-2022 22:14-0500 Body weight 53.[address] Clifford Estes Work Phone: 1(207)789-201822 [place] [address] 10-29-2022 14:20-0500 Body height 160.[address] Clifford Estes Work Phone: 4(946)313-240922 [place] [address] Work Phone: 10-29-2022 14:20-0500 Body mass index (BMI) [Ratio] 21 kg/m2 Dr. Clifford Estes Work Phone: 2(341)991-075222 [place] [address] 10-29-2022 14:20-0500 Body temperature 97.1 [degF] Dr. Clifford Estes Work Phone: 4(469)861-579622 [place] [address] 10-29-2022 14:20-0500 Body weight 53.[address] Clifford Estes Work Phone: 3(594)248-432722 [place] [address] 10-29-2022 14:20-0500 Diastolic blood pressure 98 mm[Hg] Dr. Clifford Estes Work Phone: 7(571)800-523522 [place] [address] 10-29-2022 14:20-0500 Heart rate 98 /min Dr. Clifford Estes Work Phone: 0(097)451-528822 [place] [address] 10-29-2022 14:20-0500 Respiratory rate 18 /min Dr. Clifford Estes Work Phone: 6(996)544-637722 [place] [address] 10-29-2022 14:20-0500 SaO2% (BldA) [Mass fraction] 100 % Dr. Clifford Estes Work Phone: 7(751)298-070922 [place] [address] 10-29-2022 14:20-0500 Systolic blood pressure 160 mm[Hg] Dr. Clifford Estes Work Phone: 1(322)567-603522 [place] [address] 10-12-2022 12:36-0500 Diastolic blood pressure 89 mm[Hg] Brice Henriquez MD Work Phone: [facility] 10-12-2022 12:36-0500 Heart rate 83 /min Brice Henriquez MD Work Phone: [facility] 10-12-2022 12:36-0500 Systolic blood pressure 131 mm[Hg] Brice Henriquez MD Work Phone: [facility] 10-04-2022 16:31-0500 Body height 160 cm Nayely Nazario MD Work Phone: [facility] 10-04-2022 16:31-0500 Body weight 53.98 kg Nayely Nazario MD Work Phone: [facility] 10-04-2022 16:31-0500 Diastolic blood pressure 92 mm[Hg] Nayely Nazario MD Work Phone: [facility] 10-04-2022 16:31-0500 Heart rate 89 /min Nayely Nazario MD Work Phone: [facility] 10-04-2022 16:31-0500 SaO2% (BldA) [Mass fraction] 100 % Nayely Nazario MD Work Phone: [facility] 10-04-2022 16:31-0500 Systolic blood pressure 145 mm[Hg] Nayely Nazario MD Work Phone: [facility] 09-23-2022 17:00-0500 Body temperature 97.6 [degF] Dr. Clifford Estes Work Phone: [facility] 09-23-2022 17:00-0500 Diastolic blood pressure 72 mm[Hg] Dr. Clifford Estes Work Phone: [facility] 09-23-2022 17:00-0500 Heart rate 75 /min Dr. Clifford Estes Work Phone: [facility] 09-23-2022 17:00-0500 Respiratory rate 15 /min Dr. Clifford Estes Work Phone: [facility] 09-23-2022 17:00-0500 SaO2% (BldA) [Mass fraction] 94 % Dr. Clifford Estes Work Phone: [facility] 09-23-2022 17:00-0500 Systolic blood pressure 128 mm[Hg] Dr. Clifford Estes Work Phone: [facility] 09-23-2022 12:09-0500 Body height 159.[address] Clifford Estes Work Phone: [facility] Work Phone: 09-23-2022 12:09-0500 Body weight 53.[address] Clifford Estes Work Phone: 2(475)706-591141 [address] 09-20-2022 04:24-0500 Body mass index (BMI) [Ratio] 20.8 kg/m2 Dr. Clifford Estes Work Phone: [facility] 09-20-2022 03:27-0500 Body temperature 98.5 [degF] Dr. Clifford Estes Work Phone: [facility] Work Phone: 09-20-2022 03:27-0500 Diastolic blood pressure 80 mm[Hg] Dr. Clifford Estes Work Phone: [facility] Work Phone: 09-20-2022 03:27-0500 Heart rate 101 /min Dr. Clifford Estes Work Phone: [facility] Work Phone: 09-20-2022 03:27-0500 Respiratory rate 18 /min Dr. Clifford Estes Work Phone: [facility] Work Phone: 09-20-2022 03:27-0500 SaO2% (BldA) [Mass fraction] 96 % Dr. Clifford Estes Work Phone: [facility] Work Phone: 09-20-2022 03:27-0500 Systolic blood pressure 108 mm[Hg] Dr. Clifford Estes Work Phone: [facility] Work Phone: 09-19-2022 19:19-0500 Body height 160.[address] Clifford Estes Work Phone: [facility] Work Phone: 09-19-2022 19:19-0500 Body mass index (BMI) [Ratio] 21 kg/m2 Dr. Clifford Estes Work Phone: [facility] Work Phone: 09-19-2022 19:19-0500 Body weight 53.[address] Clifford Estes Work Phone: [facility] Work Phone: 09-12-2022 13:20-0400 Body temperature 98 [degF] Dr. Clifford Estes Work Phone: 3(957)409-208941 [address] 09-12-2022 13:20-0400 Diastolic blood pressure 80 mm[Hg] Dr. Clifford Estes Work Phone: 4(379)938-785022 [place] [address] 09-12-2022 13:20-0400 Heart rate 94 /min Dr. Clifford Estes Work Phone: 6(911)919-582622 [place] [address] 09-12-2022 13:20-0400 Respiratory rate 18 /min Dr. Clifford Estes Work Phone: 2(450)554-306222 [place] [address] 09-12-2022 13:20-0400 SaO2% (BldA) [Mass fraction] 98 % Dr. Clifford Estes Work Phone: 0(832)154-840285 [place] [address] 09-12-2022 13:20-0400 Systolic blood pressure 139 mm[Hg] Dr. Clifford Estes Work Phone: 1(002)341-407222 [place] [address] 09-10-2022 14:53-0400 Body weight 54.[address] Clifford Estes Work Phone: 9(901)860-593222 [place] [address] 09-10-2022 08:38-0400 Body mass index (BMI) [Ratio] 21.3 kg/m2 Dr. Clifford Estes Work Phone: 5(038)136-311722 [place] [address] 09-10-2022 08:00-0400 Body temperature 98.7 [degF] Dr. Clifford Estes Work Phone: [facility] Work Phone: 09-10-2022 08:00-0400 Diastolic blood pressure 92 mm[Hg] Dr. Clifford Estes Work Phone: [facility] Work Phone: 09-10-2022 08:00-0400 Heart rate 87 /min Dr. Clifford Estes Work Phone: [facility] Work Phone: 09-10-2022 08:00-0400 Respiratory rate 14 /min Dr. Clifford Estes Work Phone: [facility] Work Phone: 09-10-2022 08:00-0400 SaO2% (BldA) [Mass fraction] 95 % Dr. Clifford Estes Work Phone: [facility] Work Phone: 09-10-2022 08:00-0400 Systolic blood pressure 117 mm[Hg] Dr. Clifford Estes Work Phone: [facility] Work Phone: 09-09-2022 21:28-0400 Body height 160.[address] Clifford Estes Work Phone: [facility] Work Phone: 09-09-2022 21:28-0400 Body mass index (BMI) [Ratio] 21 kg/m2 Dr. Clifford Estes Work Phone: [facility] Work Phone: 09-09-2022 21:28-0400 Body weight 53.[address] Clifford Estes Work Phone: [facility] Work Phone: 08-24-2022 14:32-0400 Diastolic blood pressure 80 mm[Hg] Clifford Estes MD Work Phone: [facility] 08-24-2022 14:32-0400 Systolic blood pressure 126 mm[Hg] Clifford Estes MD Work Phone: [facility] 08-24-2022 14:05-0400 Body height 157.5 cm Clifford Estes MD Work Phone: [facility] 08-24-2022 14:05-0400 Body weight 53.98 kg Clifford Estes MD Work Phone: [facility] 08-24-2022 14:05-0400 Heart rate 94 /min Clifford Estes MD Work Phone: [facility] 08-24-2022 14:05-0400 SaO2% (BldA) [Mass fraction] 97 % Clifford Estes MD Work Phone: [facility] 08-14-2022 09:12-0400 Body temperature 98.7 [degF] Dr. Clifford Estes Work Phone: [facility] 08-14-2022 09:12-0400 Diastolic blood pressure 83 mm[Hg] Dr. Clifford Estes Work Phone: [facility] 08-14-2022 09:12-0400 Heart rate 92 /min Dr. Clifford Estes Work Phone: [facility] 08-14-2022 09:12-0400 Respiratory rate 16 /min Dr. Clifford Estes Work Phone: [facility] 08-14-2022 09:12-0400 SaO2% (BldA) [Mass fraction] 97 % Dr. Clifford Estes Work Phone: [facility] 08-14-2022 09:12-0400 Systolic blood pressure 114 mm[Hg] Dr. Clifford Estes Work Phone: [facility] 08-13-2022 16:35-0400 Body temperature 99.2 [degF] Dr. Clifford Estes Work Phone: [facility] Work Phone: 08-13-2022 16:35-0400 Diastolic blood pressure 64 mm[Hg] Dr. Clifford Estes Work Phone: [facility] Work Phone: 08-13-2022 16:35-0400 Heart rate 89 /min Dr. Clifford Estes Work Phone: [facility] Work Phone: 08-13-2022 16:35-0400 Respiratory rate 16 /min Dr. Clifford Estes Work Phone: [facility] Work Phone: 08-13-2022 16:35-0400 SaO2% (BldA) [Mass fraction] 97 % Dr. Clifford Estes Work Phone: [facility] Work Phone: 08-13-2022 16:35-0400 Systolic blood pressure 116 mm[Hg] Dr. Clifford Estes Work Phone: [facility] Work Phone: 08-11-2022 15:16-0400 Body height 162.[address] Clifford Estes Work Phone: [facility] Work Phone: 08-11-2022 15:16-0400 Body weight 54.[address] Clifford Estes Work Phone: [facility] 08-11-2022 00:09-0400 Body mass index (BMI) [Ratio] 20.5 kg/m2 Dr. Clifford Estes Work Phone: [facility] 08-10-2022 23:58-0400 Body temperature 99.2 [degF] Dr. Clifford Estes Work Phone: [facility] Work Phone: 08-10-2022 23:58-0400 Diastolic blood pressure 81 mm[Hg] Dr. Clifford Esets Work Phone: [facility] Work Phone: 08-10-2022 23:58-0400 Heart rate 89 /min Dr. Clifford Estes Work Phone: [facility] Work Phone: 08-10-2022 23:58-0400 Respiratory rate 17 /min Dr. Clifford Estes Work Phone: [facility] Work Phone: 08-10-2022 23:58-0400 SaO2% (BldA) [Mass fraction] 94 % Dr. Clifford Estes Work Phone: [facility] Work Phone: 08-10-2022 23:58-0400 Systolic blood pressure 134 mm[Hg] Dr. Clifford Estes Work Phone: [facility] Work Phone: 08-10-2022 21:33-0400 Body height 160.[address] Clifford Estes Work Phone: [facility] Work Phone: 08-10-2022 21:33-0400 Body mass index (BMI) [Ratio] 21 kg/m2 Dr. Clifford Estes Work Phone: [facility] Work Phone: 08-10-2022 21:33-0400 Body weight 53.[address] Clifford Estes Work Phone: [facility] Work Phone: 07-30-2022 15:57-0400 Diastolic blood pressure 86 mm[Hg] Clifford Estes MD Work Phone: [facility] 07-30-2022 15:57-0400 Systolic blood pressure 130 mm[Hg] Clifford Estes MD Work Phone: [facility] 07-30-2022 15:36-0400 Body height 157.5 cm Clifford Estes MD Work Phone: [facility] 07-30-2022 15:36-0400 Body weight 53.98 kg Clifford Estes MD Work Phone: [facility] 07-30-2022 15:36-0400 Heart rate 97 /min Clifford Estes MD Work Phone: [facility] 07-30-2022 15:36-0400 SaO2% (BldA) [Mass fraction] 97 % Clifford Estes MD Work Phone: [facility] 07-25-2022 10:01-0400 Body temperature 98.9 [degF] Dr. Clifford Estes Work Phone: [facility] Work Phone: 07-25-2022 10:01-0400 Diastolic blood pressure 68 mm[Hg] Dr. Clifford Estes Work Phone: [facility] Work Phone: 07-25-2022 10:01-0400 Heart rate 70 /min Dr. Clifford Estes Work Phone: [facility] Work Phone: 07-25-2022 10:01-0400 Respiratory rate 18 /min Dr. Clifford Estes Work Phone: [facility] Work Phone: 07-25-2022 10:01-0400 SaO2% (BldA) [Mass fraction] 98 % Dr. Clifford Estes Work Phone: [facility] Work Phone: 07-25-2022 10:01-0400 Systolic blood pressure 134 mm[Hg] Dr. Clifford Estes Work Phone: [facility] Work Phone: 07-21-2022 16:51-0400 Body height 162.[address] Clifford Estes Work Phone: [facility] Work Phone: 07-21-2022 16:51-0400 Body weight 53.[address] Clifford Estes Work Phone: [facility] Work Phone: 07-21-2022 09:53-0400 Body mass index (BMI) [Ratio] 20.4 kg/m2 Dr. Clifford Estes Work Phone: [facility] Work Phone: 07-21-2022 08:38-0400 Diastolic blood pressure 93 mm[Hg] [facility] Work Phone: 07-21-2022 08:38-0400 Heart rate 99 /min [facility] Work Phone: 07-21-2022 08:38-0400 Respiratory rate 15 /min [facility] Work Phone: 07-21-2022 08:38-0400 SaO2% (BldA) [Mass fraction] 98 % [facility] Work Phone: 07-21-2022 08:38-0400 Systolic blood pressure 140 mm[Hg] [facility] Work Phone: 07-21-2022 08:36-0400 Body temperature 98 [degF] [facility] Work Phone: 07-21-2022 05:12-0400 Body height 160.02 cm [facility] Work Phone: 07-21-2022 05:12-0400 Body mass index (BMI) [Ratio] 22.3 kg/m2 [facility] Work Phone: 07-21-2022 05:12-0400 Body weight 57.2 kg [facility] Work Phone: 07-16-2022 10:52-0400 Diastolic blood pressure 84 mm[Hg] Julita Sofia DO Work Phone: [facility] 07-16-2022 10:52-0400 Heart rate 87 /min Julita Sofia DO Work Phone: [facility] 07-16-2022 10:52-0400 Systolic blood pressure 153 mm[Hg] Julita Sofia DO Work Phone: [facility] 07-05-2022 15:24-0400 Diastolic blood pressure 90 mm[Hg] [facility] Work Phone: 07-05-2022 15:24-0400 Heart rate 89 /min [facility] Work Phone: 07-05-2022 15:24-0400 Respiratory rate 15 /min [facility] Work Phone: 07-05-2022 15:24-0400 SaO2% (BldA) [Mass fraction] 98 % [facility] Work Phone: 07-05-2022 15:24-0400 Systolic blood pressure 156 mm[Hg] [facility] Work Phone: 07-05-2022 12:24-0400 Body height 160.02 cm [facility] Work Phone: 07-05-2022 12:24-0400 Body mass index (BMI) [Ratio] 22.1 kg/m2 [facility] Work Phone: 07-05-2022 12:24-0400 Body temperature 97.8 [degF] [facility] Work Phone: 07-05-2022 12:24-0400 Body weight 56.69 kg [facility] Work Phone: 06-11-2022 16:25-0400 Body height 157.5 cm Millie Kaur APRN.CN P Work Phone: [facility] 06-11-2022 16:25-0400 Body temperature 97.39 [degF] Millie Kaur APRN.CN P Work Phone: [facility] 06-11-2022 16:25-0400 Body weight 55.79 kg Millie Kaur APRN.CN P Work Phone: [facility] 06-11-2022 16:25-0400 Diastolic blood pressure 87 mm[Hg] Millie Kaur APRN.[employer] Work Phone: [facility] 06-11-2022 16:25-0400 Heart rate 76 /min Millie Kaur APRN.CN P Work Phone: [facility] 06-11-2022 16:25-0400 SaO2% (BldA) [Mass fraction] 99 % Millie Kaur APRN.[employer] Work Phone: [facility] 06-11-2022 16:25-0400 Systolic blood pressure 136 mm[Hg] Millie Kaur APRN.[employer] Work Phone: [facility] 04-14-2022 01:00-0400 Diastolic blood pressure 73 mm[Hg] Dr. Clifford Estes Work Phone: [facility] Work Phone: 04-14-2022 01:00-0400 Heart rate 97 /min Dr. Clifford Estes Work Phone: [facility] Work Phone: 04-14-2022 01:00-0400 Respiratory rate 16 /min Dr. Clifford Estes Work Phone: [facility] Work Phone: 04-14-2022 01:00-0400 SaO2% (BldA) [Mass fraction] 93 % Dr. Clifford Estes Work Phone: [facility] Work Phone: 04-14-2022 01:00-0400 Systolic blood pressure 124 mm[Hg] Dr. Clifford Estes Work Phone: [facility] Work Phone: 04-13-2022 23:00-0400 Body temperature 98.4 [degF] Dr. Clifford Estes Work Phone: [facility] Work Phone: 04-13-2022 20:32-0400 Body height 160.[address] Clifford Estes Work Phone: [facility] Work Phone: 04-13-2022 20:32-0400 Body mass index (BMI) [Ratio] 22.1 kg/m2 Dr. Clifford Estes Work Phone: [facility] Work Phone: 04-13-2022 20:32-0400 Body weight 56.[address] Clifford Estes Work Phone: [facility] Work Phone: 03-27-2022 02:24-0400 Diastolic blood pressure 88 mm[Hg] Dr. Clifford Estes Work Phone: [facility] Work Phone: 03-27-2022 02:24-0400 Heart rate 86 /min Dr. Clifford Estes Work Phone: [facility] Work Phone: 03-27-2022 02:24-0400 Respiratory rate 18 /min Dr. Clifford Estes Work Phone: [facility] Work Phone: 03-27-2022 02:24-0400 SaO2% (BldA) [Mass fraction] 94 % Dr. Clifford Estes Work Phone: [facility] Work Phone: 03-27-2022 02:24-0400 Systolic blood pressure 136 mm[Hg] Dr. Clifford Estes Work Phone: [facility] Work Phone: 03-27-2022 00:50-0400 Body height 160.[address] Clifford Estes Work Phone: [facility] Work Phone: 03-27-2022 00:50-0400 Body mass index (BMI) [Ratio] 22.5 kg/m2 Dr. Clifford Estes Work Phone: [facility] Work Phone: 03-27-2022 00:50-0400 Body temperature 97.9 [degF] Dr. Clifford Estes Work Phone: [facility] Work Phone: 03-27-2022 00:50-0400 Body weight 57.[address] Clifford Estes Work Phone: [facility] Work Phone: 03-07-2022 22:02-0400 Heart rate 82 /min Dr. Clifford Estes Work Phone: [facility] Work Phone: 03-07-2022 22:02-0400 Respiratory rate 15 /min Dr. Clifford Estes Work Phone: [facility] Work Phone: 03-07-2022 22:02-0400 SaO2% (BldA) [Mass fraction] 97 % Dr. Clifford Estes Work Phone: [facility] Work Phone: 03-07-2022 20:00-0400 Body height 152.[address] Clifford Estes Work Phone: [facility] Work Phone: 03-07-2022 20:00-0400 Body mass index (BMI) [Ratio] 24.4 kg/m2 Dr. Clifford Estes Work Phone: [facility] Work Phone: 03-07-2022 20:00-0400 Body temperature 97.8 [degF] Dr. Clifford Estes Work Phone: [facility] Work Phone: 03-07-2022 20:00-0400 Body weight 56.[address] Clifford Estes Work Phone: [facility] Work Phone: 03-07-2022 20:00-0400 Diastolic blood pressure 88 mm[Hg] Dr. Clifford Estes Work Phone: [facility] Work Phone: 03-07-2022 20:00-0400 Systolic blood pressure 134 mm[Hg] Dr. Clifford Estes Work Phone: [facility] Work Phone: 02-17-2022 09:55-0400 Diastolic blood pressure 88 mm[Hg] Brice Henriquez MD Work Phone: [facility] 02-17-2022 09:55-0400 Heart rate 82 /min Brice Henriquez MD Work Phone: [facility] 02-17-2022 09:55-0400 Systolic blood pressure 128 mm[Hg] Brice Henriquez MD Work Phone: [facility] 02-02-2022 13:40-0400 Body temperature 97.9 [degF] PHUONG Eller MD Work Phone: [facility] 02-02-2022 13:40-0400 Diastolic blood pressure 91 mm[Hg] PHUONG lEler MD Work Phone: [facility] 02-02-2022 13:40-0400 Heart rate 83 /min PHUONG Eller MD Work Phone: [facility] 02-02-2022 13:40-0400 Respiratory rate 20 /min PHUONG Eller MD Work Phone: [facility] 02-02-2022 13:40-0400 SaO2% (BldA) [Mass fraction] 100 % PHUONG Eller MD Work Phone: [facility] 02-02-2022 13:40-0400 Systolic blood pressure 145 mm[Hg] PHUONG Eller MD Work Phone: [facility] 01-24-2022 15:15-0400 Body temperature 98.1 [degF] Dr. Clifford Estes Work Phone: [facility] Work Phone: 01-24-2022 15:15-0400 Diastolic blood pressure 85 mm[Hg] Dr. Clifford Estes Work Phone: [facility] Work Phone: 01-24-2022 15:15-0400 Heart rate 72 /min Dr. Clifford Estes Work Phone: [facility] Work Phone: 01-24-2022 15:15-0400 Respiratory rate 18 /min Dr. Clifford Estes Work Phone: [facility] Work Phone: 01-24-2022 15:15-0400 SaO2% (BldA) [Mass fraction] 98 % Dr. Clifford Estes Work Phone: [facility] Work Phone: 01-24-2022 15:15-0400 Systolic blood pressure 137 mm[Hg] Dr. Clifford Estes Work Phone: [facility] Work Phone: 01-20-2022 13:26-0500 Body weight 60.[address] Clifford Estes Work Phone: [facility] Work Phone: 01-19-2022 17:12-0500 Body mass index (BMI) [Ratio] 23.7 kg/m2 Dr. Clifford Estes Work Phone: [facility] Work Phone: 01-10-2022 05:57-0500 Diastolic blood pressure 76 mm[Hg] Dr. Clifford Estes Work Phone: [facility] Work Phone: 01-10-2022 05:57-0500 Heart rate 75 /min Dr. Clifford Estes Work Phone: [facility] Work Phone: 01-10-2022 05:57-0500 Respiratory rate 17 /min Dr. Clifford Estes Work Phone: [facility] Work Phone: 01-10-2022 05:57-0500 SaO2% (BldA) [Mass fraction] 97 % Dr. Clifford Estes Work Phone: [facility] Work Phone: 01-10-2022 05:57-0500 Systolic blood pressure 133 mm[Hg] Dr. Clifford Estes Work Phone: [facility] Work Phone: 01-10-2022 04:36-0500 Body mass index (BMI) [Ratio] 23.3 kg/m2 Dr. Clifford Estes Work Phone: [facility] Work Phone: 01-10-2022 04:36-0500 Body temperature 97.2 [degF] Dr. Clifford Estes Work Phone: [facility] Work Phone: 01-10-2022 04:36-0500 Body weight 59.[address] Clifford Estes Work Phone: [facility] Work Phone: 12-26-2021 16:58-0500 Body temperature 97.5 [degF] Dr. Clifford Estes Work Phone: [facility] Work Phone: 12-26-2021 16:58-0500 Diastolic blood pressure 91 mm[Hg] Dr. Clifford Estes Work Phone: [facility] Work Phone: 12-26-2021 16:58-0500 Heart rate 94 /min Dr. Clifford Estes Work Phone: [facility] Work Phone: 12-26-2021 16:58-0500 Respiratory rate 14 /min Dr. Clifford Estes Work Phone: [facility] Work Phone: 12-26-2021 16:58-0500 SaO2% (BldA) [Mass fraction] 98 % Dr. Clifford Estes Work Phone: [facility] Work Phone: 12-26-2021 16:58-0500 Systolic blood pressure 148 mm[Hg] Dr. Clifford Estes Work Phone: [facility] Work Phone: 12-26-2021 16:56-0500 Body mass index (BMI) [Ratio] 22.2 kg/m2 Dr. Clifford Estes Work Phone: [facility] Work Phone: 12-26-2021 16:56-0500 Body weight [address] Clifford Estes Work Phone: [facility] Work Phone: 11-17-2021 12:01-0500 Diastolic blood pressure 92 mm[Hg] Dr. Clifford Estes Work Phone: [facility] Work Phone: 11-17-2021 12:01-0500 Heart rate 86 /min Dr. Clifford Estes Work Phone: [facility] Work Phone: 11-17-2021 12:01-0500 Respiratory rate 17 /min Dr. Clifford Estes Work Phone: [facility] Work Phone: 11-17-2021 12:01-0500 SaO2% (BldA) [Mass fraction] 94 % Dr. Clifford Estes Work Phone: [facility] Work Phone: 11-17-2021 12:01-0500 Systolic blood pressure 144 mm[Hg] Dr. Clifford Estes Work Phone: [facility] Work Phone: 11-17-2021 09:27-0500 Body mass index (BMI) [Ratio] 23 kg/m2 Dr. Clifford Estes Work Phone: [facility] Work Phone: 11-17-2021 09:27-0500 Body temperature 98.8 [degF] Dr. Clifford Estes Work Phone: [facility] Work Phone: 11-17-2021 09:27-0500 Body weight 58.[address] Clifford Estes Work Phone: [facility] Work Phone: Encounters Encounter Date Encounter Type Care Provider Facility Start: 09-06-2025 End: 09-06-2025 ambulatory [facility] Facility:[facility] Start: 08-30-2025 End: 08-30-2025 ambulatory [facility] Facility:[facility] Start: 08-30-2025 Encounter for genera l adult medical examination without abnormal findings BREA FLORENTINO [facility] Start: 08-30-2025 End: 08-30-2025 ambulatory [facility] Facility:[facility] Start: 07-24-2025 End: 07-24-2025 Telephone encounter Daniella Garrett RN Work Phone: [facility] Comment on above: Patient Update Start: 07-24-2025 End: 07-24-2025 Home visit Daniella Garrett RN Work Phone: [facility] Comment on above: SN ROUTINE Start: 07-10-2025 End: 07-10-2025 Home visit Daniella Garrett RN Work Phone: [facility] Comment on above: SN ROUTINE Start: 07-03-2025 End: 07-03-2025 Telephone encounter Daniella Garrett RN Work Phone: [facility] Comment on above: Home Care (Pt fall) Orders Start: 07-03-2025 End: 07-03-2025 Home visit Daniella Garrett RN Work Phone: [facility] Comment on above: SN ROUTINE Start: 06-23-2025 End: 06-23-2025 Home visit Svetlana Reyes RN Work Phone: [facility] Comment on above: HH TRIAGE PHONE CALL Start: 06-10-2025 End: 06-10-2025 Home visit Daniella Garrett RN Work Phone: [facility] Comment on above: SN RECERT Start: 06-07-2025 End: 06-10-2025 ambulatory Brea Florentino MD Work Phone: Urology Start: 06-07-2025 End: 06-07-2025 Patient encounter procedure Brea Florentino MD Work Phone: Urology Comment on above: Neurogenic bladder ( Primary Dx); Diverticulum of bladder; Bladder stones; Spina bifida with hydrocephalus, unspecified spinal region (HCC) Start: 06-04-2025 End: 06-04-2025 Refill Nayely Nazario MD Work Phone: Gastroenterology Comment on above: Refill Request Start: 06-03-2025 End: 06-04-2025 Refill Nayely Nazario MD Work Phone: Gastroenterology Comment on above: Refill Request Start: 05-14-2025 End: 05-14-2025 Refill Nayely Nazario MD Work Phone: Gastroenterology Comment on above: Refill Request Start: 05-13-2025 End: 05-13-2025 Refill Nayely Nazario MD Work Phone: Gastroenterology Comment on above: Refill Request Start: 05-10-2025 End: 05-10-2025 Home visit Daniella Garrett RN Work Phone: [facility] Comment on above: SN ROUTINE Start: 05-09-2025 End: 07-09-2025 Follow-up encounter Brea Florentino MD Work Phone: Urology Start: 05-08-2025 End: 05-08-2025 Subsequent hospital visit by physician [facility] [place] [facility] Work Phone: Radiology Comment on above: Neurogenic bladder [ N31.9] Start: 05-08-2025 End: 05-08-2025 ambulatory CLIFFORD ESTES Facility:[facility] Start: 04-26-2025 End: 04-29-2025 Follow-up encounter Clifford Estes MD Work Phone: [facility] [place] Start: 04-25-2025 End: 04-25-2025 Home visit Daniella Garrett RN Work Phone: [facility] Comment on above: SN PRN VISIT Start: 04-24-2025 End: 04-24-2025 Home visit Daniella Garrett RN Work Phone: [facility] Comment on above: SN ROUTINE Start: 04-10-2025 End: 04-10-2025 Home visit Daniella Garrett RN Work Phone: [facility] Comment on above: SN RECERT Start: 03-24-2025 End: 03-25-2025 Home visit Halie Lofton RN Work Phone: [facility] Comment on above: HH TRIAGE PHONE CALL Start: 03-13-2025 End: 03-13-2025 Telephone encounter Daniella Garrett RN Work Phone: [facility] Comment on above: Home Care; Patient Q uestion Start: 03-13-2025 End: 03-13-2025 Home visit Daniella Garrett RN Work Phone: [facility] Comment on above: SN ROUTINE Start: 03-03-2025 End: 03-04-2025 Home visit Tereza Celestin RN Work Phone: [facility] Comment on above: HH TRIAGE PHONE CALL Start: 02-25-2025 End: 02-26-2025 Telephone encounter Nayely Nazario MD Work Phone: Gastroenterology Comment on above: Patient Question Start: 02-18-2025 End: 02-18-2025 Refill Nayely Nazario MD Work Phone: Gastroenterology Comment on above: Refill Request Start: 02-08-2025 End: 02-08-2025 Home visit Daniella Garrett RN Work Phone: [facility] Comment on above: SN RECERT Start: 01-09-2025 End: 01-09-2025 Home visit Daniella Garrett RN Work Phone: [facility] Comment on above: SN ROUTINE Start: 12-20-2024 End: 12-20-2024 Refill Nayely Nazario MD Work Phone: Gastroenterology Comment on above: Refill Request Start: 12-13-2024 End: 12-13-2024 Home visit Daniella Garrett RN Work Phone: [facility] Comment on above: SN RECERT Start: 11-26-2024 End: 11-26-2024 ambulatory Anna Eid RN AG [employer] Start: 11-26-2024 End: 11-26-2024 Home visit Anna Eid RN [employer] Comment on above: Population Health Na vigation Outreach ([place] Attributed Member - Chart Review ) Start: 11-21-2024 End: 11-21-2024 Refill Nayely Nazario MD Work Phone: Gastroenterology Comment on above: Refill Request Start: 11-20-2024 End: 11-20-2024 Telephone encounter Kaylie Mares MD Work Phone: ICU Hosp Start: 11-19-2024 End: 11-19-2024 Orders Only Clifford Estes MD Work Phone: [facility] [place] Start: 11-16-2024 End: 11-16-2024 Home visit Daniella Garrett RN Work Phone: [facility] Comment on above: SN ROUTINE Start: 10-20-2024 End: 10-20-2024 Orders Only Camille Larios SENIOR BUSINESS MANAGER.[employer] HAND FINISHER Work Phone: Gastroenterology Start: 10-17-2024 End: 10-17-2024 Home visit Daniella Garrett RN Work Phone: [facility] Comment on above: SN ROUTINE Start: 10-10-2024 End: 10-10-2024 Home visit Daniella Garrett RN Work Phone: [facility] Comment on above: SN RECERT Start: 09-19-2024 End: 09-19-2024 Home visit Daniella Garrett RN Work Phone: [facility] Comment on above: SN ROUTINE Start: 09-06-2024 End: 09-06-2024 Telephone encounter Clifford Estes MD Work Phone: [facility] [place] Comment on above: Refill Request Start: 09-03-2024 End: 09-03-2024 Telephone encounter Wero Uribe RN Work Phone: [facility] Comment on above: Home Care (Notificat ion of unmade home nurse visit.) Start: 08-29-2024 End: 08-29-2024 Telephone encounter Yvette Gao APRN.[employer] HAND FINISHER Work Phone: [facility] [place] Comment on above: Results Start: 08-29-2024 End: 08-29-2024 Home visit Wero Uribe RN Work Phone: [facility] Comment on above: SN UNMADE VISIT Start: 08-24-2024 End: 08-24-2024 Home visit Shaila Tapia RN Work Phone: [facility] Comment on above: SN PRN VISIT Start: 08-23-2024 End: 08-23-2024 Home visit Shaila Tapia RN Work Phone: [facility] Comment on above: SN UNMADE VISIT Start: 08-22-2024 End: 08-22-2024 Home visit Svetlana Reyes RN Work Phone: [facility] Comment on above: HH TRIAGE PHONE CALL Start: 08-22-2024 End: 08-22-2024 Telephone encounter Svetlana Reyes RN Work Phone: [facility] Comment on above: Home Care Start: 08-15-2024 End: 08-15-2024 Refill Nayely Nazario MD Work Phone: Gastroenterology Comment on above: Refill Request SN RECERT Start: 08-03-2024 End: 08-03-2024 Home visit Daniella Garrett RN Work Phone: [facility] Comment on above: SN ROUTINE Start: 07-19-2024 End: 07-19-2024 Telephone encounter Vickie PATEL Work Phone: [facility] Comment on above: Home Care Start: 07-19-2024 End: 07-19-2024 Home visit Vickie PATEL Work Phone: [facility] Comment on above: [facility] Start: 07-05-2024 End: 07-05-2024 Home visit Daniella Garrett RN Work Phone: [facility] Comment on above: SN ROUTINE Start: 07-02-2024 End: 07-02-2024 Patient encounter procedure Nayely Nazario MD Work Phone: Gastroenterology Comment on above: Constipation due to neurogenic bowel (Primary Dx); SBO (small bowel obstruction) (HCC) Start: 06-28-2024 ambulatory Anna Eid RN AG [facility] Start: 06-28-2024 Home visit Anna Eid RN [facility] Comment on above: Population Health Na vigation Outreach ([place] Attributed Member- PCP Attribution Update Sent to [employer] ) Start: 06-27-2024 End: 06-27-2024 Home visit Daniella Garrett RN Work Phone: [facility] Comment on above: SN ROUTINE Start: 06-25-2024 End: 06-25-2024 Office outpatient visit 15 minutes Yvette Gao APRN.[employer] FINISHER Work Phone: [facility] [place] Comment on above: SBO (small bowel obs truction) (HCC) (Primary Dx) Start: 06-20-2024 End: 06-20-2024 Home visit Daniella Garrett RN Work Phone: [facility] Comment on above: SN ROUTINE Start: 06-18-2024 End: 06-18-2024 Home visit Vickie VUW Work Phone: [facility] Comment on above: [facility] Start: 06-17-2024 End: 06-17-2024 Home visit Maddie Pineda RN Work Phone: [facility] Comment on above: SN SOC Start: 06-16-2024 Telephone encounter Maddie crews RN Work Phone: [facility] Comment on above: Home Care Arrangemen ts Start: 06-15-2024 Telephone encounter Chyna morales LPN Work Phone: [facility] Comment on above: Home Assisted Care (Confirmat ion call.) Start: 06-14-2024 Patient Outreach Ace Campos RN Work Phone: [employer] Management Comment on above: Transition Of Care ( Value based non-response initial outreach) Start: 06-13-2024 Telephone encounter Azam López thomas PA-C Work Phone: Orthopaedics Comment on above: Patient Update Start: 06-09-2024 Refill Nayely Nazario MD Work Phone: Gastroenterology Comment on above: Refill Request Start: 06-07-2024 ambulatory Beth Randall MA Na vigate [facility] Start: 06-07-2024 Patient encounter procedure Beth Randall MA [facility] Comment on above: Population Health Na vigation Outreach ([facility]) Start: 06-06-2024 End: 06-11-2024 Evaluation and management of inpatient Conchita Cordero [facility] Facility:[facility] Start: 06-06-2024 Refill Nayely Nazario MD Work Phone: Gastroenterology Comment on above: Refill Request Start: 05-08-2024 End: 05-08-2024 Patient encounter procedure Brea Florentino MD Work Phone: Urology Comment on above: Neurogenic bladder ( Primary Dx); Diverticulum of bladder; Bladder stones Start: 05-08-2024 ambulatory Brea york MD Work Phone: Urology Start: 04-24-2024 Patient Outreach Ophelia John RN Work Phone: [employer] Management Comment on above: Transition Of Care ( [employer] nonresponse single outreach) Start: 04-18-2024 Telephone encounter Clifford Estes MD Work Phone: [facility] [place] Comment on above: Patient Update Start: 04-17-2024 Telephone encounter Clifford Estes MD Work Phone: [facility] [place] Comment on above: bowel issue Start: 04-16-2024 Refill Nayely Nazario MD Work Phone: Gastroenterology Comment on above: Refill Request Start: 04-11-2024 Telephone encounter Dalia Floyd RN [facility] [place] Comment on above: Home Health Update Start: 04-10-2024 End: 04-10-2024 Patient encounter procedure Paco Murillo MD Work Phone: General Surgery Comment on above: Non-recurrent bilate ral inguinal hernia without obstruction or gangrene (Primary Dx) Start: 04-06-2024 Telephone encounter Toni Carlos MD Work Phone: Urology Start: 04-05-2024 ambulatory Brea york MD Work Phone: Urology Start: 04-05-2024 End: 04-05-2024 Admission to establishment Pacc Main 6 Work Phone: Pre Anesthesia Start: 04-05-2024 End: 04-05-2024 Anesthesia consultation Pac Main 6 Work Phone: Pre Anesthesia Comment on above: Pre-op evaluation (P rimary Dx); Hydrocephalus, unspecified type (HCC); Spina bifida with hydrocephalus, unspecified spinal region (HCC); Gastroparesis; Neurogenic bladder Start: 04-05-2024 End: 04-05-2024 Preprocedural examination done Pac Main 6 Work Phone: [facility] Work Phone: Start: 04-05-2024 End: 04-09-2024 Nursing evaluation of patient and report Isadora Garvin RN Work Phone: Urology Comment on above: Screening for genito urinary condition (Primary Dx); Diverticulum of bladder; Bladder stones; Spina bifida with hydrocephalus, unspecified spinal region (HCC) Start: 04-03-2024 End: 04-03-2024 Patient encounter procedure Daphney Castellon PA-C Work Phone: [facility] Comment on above: Spina bifida of lumb ar region with hydrocephalus (HCC) Start: 04-03-2024 End: 04-03-2024 Subsequent hospital visit by physician Lasha Goldberg Work Phone: Radiology Comment on above: Diverticulum of blad kristine [N32.3] Start: 04-02-2024 Telephone encounter Brea Fields MD Work Phone: Urology Start: 03-21-2024 End: 03-21-2024 Patient encounter procedure Beck Mar MD Work Phone: Gastroenterology Comment on above: Neurogenic bowel (Pr imary Dx) Start: 03-21-2024 Telephone encounter Isadora leger RN Work Phone: Urology Comment on above: Returning Patient's Call Start: 03-06-2024 Telephone encounter Clifford Estes MD Work Phone: [facility] [place] Comment on above: information upcoming surgery Start: 03-05-2024 ambulatory Brea york MD Work Phone: Urology Start: 02-29-2024 ambulatory Lety Trevizo MA [facility] Start: 02-29-2024 Patient encounter procedure Lety Trevizo MA [facility] Comment on above: Population Health Na vigation Outreach ([place] Annual Wellness Visit ) Start: 02-21-2024 ambulatory Brice Henriquez MD Work Phone: Urology Start: 02-21-2024 End: 02-21-2024 Patient encounter procedure Brea Florentino MD Work Phone: Urology Comment on above: Neurogenic bladder ( Primary Dx); 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); Bladder stone; Recurrent UTI; S/P SOFT SHOE DANCER shunt; Diverticulum of bladder; Congenital hernia of bladder Start: 02-20-2024 Refill Nayely Nazario MD Work Phone: Gastroenterology Comment on above: Refill Request Start: 02-14-2024 Telephone encounter Clifford Estes MD Work Phone: [facility] [place] Comment on above: Problem with cathete r Start: 02-13-2024 Telephone encounter Clifford Estes MD Work Phone: [facility] [place] Comment on above: Results Start: 02-13-2024 ambulatory Clifford Estes Facility:[facility] Start: 02-10-2024 End: 02-11-2024 ambulatory [facility] Work Phone: Start: 02-10-2024 End: 02-11-2024 Discharged Recurring [facility] Start: 01-25-2024 Telephone encounter Clifford Estes MD Work Phone: [facility] Comment on above: urine culture result s Start: 01-23-2024 Telephone encounter Clifford Estes MD Work Phone: [facility] Comment on above: Order request Results Start: 01-11-2024 Telephone encounter Azam thomas PA-C Work Phone: Urology Comment on above: Orders Start: 12-28-2023 Telephone encounter Clifford Estes MD Work Phone: [facility] Comment on above: Patient Update Start: 12-21-2023 Telephone encounter Nayely hollis MD Work Phone: Gastroenterology Comment on above: Medication Question (Clarification) Start: 11-28-2023 End: 11-28-2023 Emergency department patient visit Dr. Clifford Estes Work Phone: [facility] Work Phone: Start: 11-01-2023 End: 11-01-2023 Emergency department patient visit Dr. Clifford Estes Work Phone: [facility] Work Phone: Start: 10-26-2023 Telephone encounter Clifford Estes MD Work Phone: [facility] Comment on above: Results Start: 10-25-2023 End: 10-25-2023 Nursing evaluation of patient and report Mi Nurse Work Phone: [facility] Comment on above: Hyponatremia (Primar y Dx) Start: 10-21-2023 Telephone encounter Yvette abrams APRN.[employer] FINISHER Work Phone: [facility] Comment on above: Orders Start: 10-14-2023 ambulatory Katiana Bill RN [facility] Start: 10-14-2023 Follow-up encounter Katiana Cruz Control Clerk Repairs Management Comment on above: Transition Of Care ( TCM follow up) Start: 10-14-2023 Telephone encounter Yvette abrams APRN.[employer] HAND FINISHER Work Phone: [facility] Comment on above: Results Start: 10-04-2023 End: 10-04-2023 Office outpatient visit 25 minutes Yvette Gao APRN.[employer] HAND FINISHER Work Phone: [facility] Comment on above: Acute cystitis witho ut hematuria (Primary Dx); Hyponatremia; Leukocytosis, unspecified type; Gastroparesis; COVID-19 Start: 09-30-2023 Patient Outreach Katiana Rasmussen mbulatory Care Management Comment on above: Transition Of Care ( TCM Initial Outreach: [facility] 09/22/23, UTI) Start: 09-28-2023 Telephone encounter Azam thomas PA-C Work Phone: Urology Comment on above: Orders; Care Coordin ator - Other Start: 09-23-2023 Telephone encounter Clifford Estes MD Work Phone: [facility] Comment on above: Orders Start: 09-22-2023 Telephone encounter Clifford Estes MD Work Phone: [facility] Comment on above: FYI-No Action Needed Refill Request Start: 09-22-2023 Non-patient / Non-visit Dr. Clifford Estes Work Phone: [facility] Work Phone: Start: 09-21-2023 Telephone encounter Azam thomas PA-C Work Phone: Urology Comment on above: Home Health Update Start: 09-21-2023 Non-patient / Non-visit Dr. Clifford Estes Work Phone: [facility] Work Phone: Start: 09-20-2023 End: 09-22-2023 Evaluation and management of inpatient Dr. Clifford Estes Work Phone: [facility] Work Phone: Start: 09-20-2023 Telephone encounter Juan Daniel GIBSONC Work Phone: [facility] [place] Comment on above: Elevated Heart Rate Start: 09-19-2023 Telephone encounter Clifford Estes MD Work Phone: [facility] [place] Comment on above: [facility], verbal order needed jie Start: 09-06-2023 Refill Yvette Goa APRN.[employer] FINISHER Work Phone: [facility] [place] Comment on above: Refill Request Start: 09-05-2023 Telephone encounter Azam GIBSONC Work Phone: Pulmonary Medicine Comment on above: Orders Start: 08-18-2023 Patient Outreach Kassy Willson MA [facility] [place] Comment on above: Transition Of Care ( [facility] 08/09/23-08/15/23) Start: 08-16-2023 Telephone encounter Liz LEE-C Work Phone: Gastroenterology Comment on above: Hospital F/U (/) Start: 08-15-2023 Non-patient / Non-visit Dr. Clifford Estes Work Phone: [facility] Work Phone: Start: 08-14-2023 Non-patient / Non-visit Dr. Clifford Estes Work Phone: [facility] Work Phone: Start: 08-13-2023 Non-patient / Non-visit Dr. Clifford Estes Work Phone: [facility] Work Phone: Start: 08-12-2023 Non-patient / Non-visit Dr. Clifford Estes Work Phone: [facility] Work Phone: Start: 08-11-2023 Telephone encounter Liz LEE-C Work Phone: Gastroenterology Comment on above: Hospital Admission Start: 08-11-2023 Non-patient / Non-visit Dr. Clifford Estes Work Phone: [facility] Work Phone: Start: 08-10-2023 Non-patient / Non-visit Dr. Clifford Estes Work Phone: [facility] Work Phone: Start: 08-09-2023 Non-patient / Non-visit Dr. Clifford Estes Work Phone: [facility] Work Phone: Start: 08-09-2023 End: 08-15-2023 Evaluation and management of inpatient Dr. Clifford Estes [facility] Work Phone: Start: 08-09-2023 Telephone encounter Clifford Estes MD Work Phone: [facility] Comment on above: Orders; recert patie nt for home health Start: 08-05-2023 Telephone encounter Clifford Estes MD Work Phone: [facility] Comment on above: Results Start: 08-03-2023 End: 08-03-2023 Patient encounter procedure Clifford Estes MD Work Phone: [facility] [place] Comment on above: Hydrocephalus, unspe cified type (HCC) (Primary Dx); Encounter for immunization; Spina bifida with hydrocephalus, unspecified spinal region (HCC); Congenital hydrocephalus (HCC); Neurogenic bladder; Gastroparesis; Chronic cough; Dark urine; Hyponatremia; Urinary retention; Hypokalemia; Thrombocytosis Start: 07-11-2023 Telephone encounter Clifford Estes MD Work Phone: [facility] [place] Comment on above: Forms Start: 07-04-2023 Refill Liz segundo PA-C Work Phone: Gastroenterology Start: 06-13-2023 End: 06-13-2023 Patient encounter procedure Liz Villarreal PA-C Work Phone: Gastroenterology Comment on above: Constipation, unspec ified constipation type (Primary Dx); Redundant colon; H/O small bowel obstruction; Spina bifida with hydrocephalus, unspecified spinal region (HCC); Neurogenic bladder Start: 06-13-2023 Telephone encounter Clifford Estes MD Work Phone: [facility] [place] Comment on above: Home Health Medicati on Order Start: 06-09-2023 Telephone encounter Azam Mo martha ENRIQUEZ Work Phone: Urology Comment on above: Orders Start: 05-27-2023 Telephone encounter Clifford Estes MD Work Phone: [facility] [place] Comment on above: Results Start: 05-23-2023 Telephone encounter Clifford Estes MD Work Phone: [facility] [place] Comment on above: Results Start: 05-20-2023 Telephone encounter Clifford Estes MD Work Phone: [facility] [place] Comment on above: Results Start: 05-19-2023 End: 05-19-2023 Patient encounter procedure Clifford Estes MD Work Phone: [facility] [place] Comment on above: Acute pseudo-obstruc tion of bowel (Primary Dx); Gastroparesis; Spina bifida with hydrocephalus, unspecified spinal region (HCC); Hypokalemia Start: 05-18-2023 Telephone encounter Clifford Estes MD Work Phone: [facility] [place] Comment on above: Long-Term Upda te Patient Update; Resu lts Start: 05-16-2023 Non-patient / Non-visit Dr. Clifford Estes Work Phone: [facility] Work Phone: Start: 05-16-2023 Non-patient / Non-visit Dr. Clifford Estes Work Phone: [facility] Start: 05-15-2023 Non-patient / Non-visit Dr. Clifford Estes Work Phone: [facility] Work Phone: Start: 05-14-2023 Non-patient / Non-visit Dr. Clifford Estes Work Phone: [facility] Work Phone: Start: 05-13-2023 Non-patient / Non-visit Dr. Clifford Estes Work Phone: [facility] Work Phone: Start: 05-12-2023 Non-patient / Non-visit Dr. Clifford Estes Work Phone: [facility] Work Phone: Start: 05-11-2023 Non-patient / Non-visit Dr. Clifford Estes Work Phone: [facility] Work Phone: Start: 05-10-2023 Non-patient / Non-visit Dr. Clifford Estes Work Phone: [facility] Work Phone: Start: 05-09-2023 Non-patient / Non-visit Dr. Clifford Estes Work Phone: [facility] Work Phone: Start: 05-09-2023 End: 05-16-2023 Evaluation and management of inpatient Dr. Clifford Estes [facility] Work Phone: Start: 05-04-2023 ambulatory Giselle Medina RN [facility] [place] Start: 05-04-2023 Follow-up encounter Giselle Medina cancer registry coordinatorControl Clerk Repairs Management Comment on above: Transition Of Care ( TCM follow-up) Start: 04-20-2023 ambulatory Giselle Medina RN [facility] [place] Start: 04-20-2023 Follow-up encounter Giselle Medina cancer registry coordinatorControl Clerk Repairs Management Comment on above: Transition Of Care ( TCM follow-up) Start: 04-15-2023 Telephone encounter Clifford Estes MD Work Phone: [facility] Comment on above: Home Health Nursing Call Start: 04-14-2023 Telephone encounter Clifford Estes MD Work Phone: NOC Comment on above: Follow Up Phone Call (Post Discharge F/U - attempt made. No answer.) Start: 04-05-2023 Telephone encounter Clifford Estes MD Work Phone: [facility] Comment on above: Patient Update Start: 04-03-2023 Non-patient / Non-visit Dr. Clifford Estes Work Phone: [facility] Work Phone: Start: 04-02-2023 Non-patient / Non-visit Dr. Clifford Estes Work Phone: [facility] Work Phone: Start: 04-02-2023 End: 04-03-2023 Evaluation and management of inpatient Dr. Clifford Estes [facility] Work Phone: Start: 04-02-2023 Non-patient / Non-visit Dr. Clifford Estes Work Phone: [facility] Start: 03-30-2023 End: 03-30-2023 Emergency department patient visit Dr. Clifford Estes [facility] Work Phone: Start: 03-08-2023 ambulatory Katiana Bill RN [facility] Start: 03-08-2023 Follow-up encounter Katiana Cruz Control Clerk [employer] Management Comment on above: Transition Of Care ( TCM follow up) Start: 02-25-2023 Telephone encounter Clifford Estes MD Work Phone: [facility] Comment on above: Delay/resumption of care Start: 02-24-2023 Non-patient / Non-visit Dr. Clifford Estes Work Phone: [facility] Work Phone: Start: 02-23-2023 Non-patient / Non-visit Dr. Clifford Estes Work Phone: [facility] Start: 02-23-2023 Telephone encounter Clifford Estes MD Work Phone: [facility] [place] Comment on above: Inpatient at [facility] Start: 02-22-2023 Non-patient / Non-visit Dr. Clifford Estes Work Phone: [facility] Start: 02-21-2023 Non-patient / Non-visit Dr. Clifford Estes Work Phone: [facility] Start: 02-20-2023 End: 02-24-2023 [facility] of [facility] Start: 02-17-2023 Refill Nayely Nazario MD Work Phone: Gastroenterology Comment on above: Refill Request Start: 02-16-2023 Telephone encounter Clifford Estes MD Work Phone: [facility] Comment on above: Forms Start: 02-15-2023 End: 02-15-2023 Emergency department patient visit [facility] Start: 02-14-2023 Refill Nayely Nazario MD Work Phone: Gastroenterology Comment on above: Refill Request Start: 02-11-2023 Telephone encounter Clifford Estes MD Work Phone: [facility] [place] Comment on above: Orders [facility] HH SN POC Start: 01-28-2023 Telephone encounter Clifford Estes MD Work Phone: [facility] [place] Comment on above: Results Start: 12-20-2022 Telephone encounter Clifford Estes MD Work Phone: [facility] [place] Comment on above: Patient Update Start: 12-17-2022 Telephone encounter Clifford Estes MD Work Phone: [facility] [place] Comment on above: Approve for POC Start: 12-16-2022 Telephone encounter Nayely hollis MD Work Phone: Gastroenterology Comment on above: Patient Update; Sumaya ent Question Start: 12-14-2022 Telephone encounter Clifford Estes MD Work Phone: [facility] [place] Comment on above: Patient Update Start: 12-11-2022 End: 12-11-2022 Emergency department patient visit Dr. Von Sanchez Facility:[facility] Start: 12-10-2022 End: 12-11-2022 Emergency department patient visit Dr. Clifford Estes [facility] Start: 10-29-2022 End: 10-29-2022 Emergency department patient visit Dr. Clifford Estes [facility] Start: 10-29-2022 Telephone encounter Clifford Estes MD Work Phone: [facility] [place] Comment on above: Long-Term Upda benjy Start: 10-22-2022 Telephone encounter Clifford Estes MD Work Phone: [facility] Comment on above: [facility], nursing, leodan bal order Start: 10-12-2022 ambulatory Brice Henriquez MD Work Phone: Urology Start: 10-12-2022 End: 10-12-2022 Patient encounter procedure Brice Henriquez MD Work Phone: Urology Comment on above: Neurogenic bladder ( Primary Dx) Start: 10-11-2022 Refill Nayely Nazario MD Work Phone: Gastroenterology Comment on above: Med Change Request Start: 10-04-2022 End: 10-04-2022 Patient encounter procedure Nayely Nazario MD Work Phone: Gastroenterology Comment on above: Chronic constipation (Primary Dx); Spina bifida with hydrocephalus, unspecified spinal region (HCC); Redundant colon; History of small bowel obstruction Start: 10-04-2022 Refill Nayely Nazario MD Work Phone: Gastroenterology Comment on above: Med Change Request Start: 10-04-2022 Telephone encounter Clifford Estes MD Work Phone: [facility] Comment on above: Orders ([facility] Home hea lth ) Start: 09-29-2022 Telephone encounter Clifford Estes MD Work Phone: [facility] Comment on above: Physical Therapy Upd ate Start: 09-23-2022 Non-patient / Non-visit Dr. Clifford Estes Work Phone: [facility] Start: 09-22-2022 Non-patient / Non-visit Dr. Clifford Estes Work Phone: [facility] Start: 09-21-2022 Non-patient / Non-visit Dr. Clifford Estes Work Phone: [facility] Start: 09-20-2022 Evaluation and management of inpatient Dr. Clifford Estes Work Phone: [facility] Start: 09-20-2022 Non-patient / Non-visit Dr. Clifford Estes Work Phone: [facility] Start: 09-20-2022 End: 09-23-2022 Evaluation and management of inpatient Dr. Clifford Estes Work Phone: [facility] Start: 09-15-2022 Telephone encounter Clifford Estes MD Work Phone: [facility] Comment on above: Forms Start: 09-12-2022 Non-patient / Non-visit Dr. Clifford Estes Work Phone: [facility] Start: 09-12-2022 Non-patient / Non-visit Dr. Clifford Estes Work Phone: [facility] Start: 09-11-2022 Non-patient / Non-visit Dr. Clifford Estes Work Phone: [facility] Start: 09-11-2022 Non-patient / Non-visit Dr. Clifford Estes Work Phone: [facility] Start: 09-10-2022 Non-patient / Non-visit Dr. Clifford Estes Work Phone: [facility] Start: 09-10-2022 End: 09-12-2022 Evaluation and management of inpatient Dr. Clifford Estes Work Phone: [facility] Start: 09-10-2022 Evaluation and management of inpatient Dr. Clifford Estes Work Phone: [facility] Start: 09-09-2022 Telephone encounter Millie waldron APRN.[employer] Work Phone: Gastroenterology Comment on above: Patient Question Start: 09-06-2022 Telephone encounter Clifford Estes MD Work Phone: [facility] Comment on above: Physical Therapy ord ers Start: 08-25-2022 Telephone encounter Clifford Estes MD Work Phone: [facility] Comment on above: Results Start: 08-24-2022 End: 08-24-2022 Patient encounter procedure Clifford Estes MD Work Phone: [facility] Comment on above: Urinary tract infect ion without hematuria, site unspecified (Primary Dx); Hyponatremia; Urinary catheter in place; Neurogenic bladder; Spina bifida with hydrocephalus, unspecified spinal region (HCC) Start: 08-18-2022 Telephone encounter Clifford Estes MD Work Phone: [facility] Comment on above: [facility] HH PT POC Start: 08-17-2022 ambulatory Rich Guajardo POWERHOU[employer] [facility] Start: 08-17-2022 Telephone encounter Clifford Estes MD Work Phone: [facility] Comment on above: Patient Update Transition Of Care ( [facility] 08/10/22-08/14/22) Start: 08-14-2022 Non-patient / Non-visit Dr. Clifford Estes Work Phone: [facility] Start: 08-13-2022 Non-patient / Non-visit Dr. Clifford Estes Work Phone: [facility] Start: 08-12-2022 Non-patient / Non-visit Dr. Clifford Estes Work Phone: [facility] Start: 08-12-2022 Telephone encounter Clifford Estes MD Work Phone: [facility] Comment on above: Results Start: 08-11-2022 Telephone encounter Clifford Estes MD Work Phone: [facility] Comment on above: Patient Update Start: 08-11-2022 Non-patient / Non-visit Dr. Clifford Estes Work Phone: [facility] Start: 08-10-2022 Non-patient / Non-visit Dr. Clifford Estes Work Phone: [facility] Start: 08-10-2022 End: 08-14-2022 Evaluation and management of inpatient Dr. Clifford Estes Work Phone: [facility] Start: 08-10-2022 End: 08-10-[address] Clifford Estes Work Phone: [facility] Work Phone: Start: 08-10-2022 End: 08-10-[address] [facility] Start: 08-10-[address] Cr Estes Work Phone: [facility] Start: 08-10-2022 Telephone encounter Juan Daniel Wolff PA-C Work Phone: [facility] Comment on above: Orders Start: 08-06-2022 Telephone encounter Clifford Estes MD Work Phone: [facility] Comment on above: Patient Update Start: 08-05-2022 Telephone encounter Clifford Estes MD Work Phone: [facility] Comment on above: Continued Social Wor k order Start: 08-03-2022 Telephone encounter Clifford Estes MD Work Phone: [facility] Comment on above: Order Request Start: 08-02-2022 Telephone encounter [facility] Comment [facility]: Results [facility] OT POC Start: 07-30-2022 End: 07-30-2022 Patient encounter procedure Clifford Estes MD Work Phone: [facility] Comment on above: SBO (small bowel obs truction) ([facility]) (Primary Dx); Need for influenza vaccination; Recurrent UTI (urinary tract infection); Congenital hydrocephalus ([facility]); Spina bifida with hydrocephalus, unspecified spinal region (HCC); Neurogenic bladder; Hyponatremia; Fungal dermatitis Start: 07-30-2022 Telephone encounter Clifford Estes MD Work Phone: [facility] Comment on above: PT plan of care Start: 07-27-2022 Telephone encounter Clifford Estes MD Work Phone: [facility] Comment on above: Patient Update; Orde rs Orders Start: 07-26-2022 Telephone encounter Clifford Estes MD Work Phone: [facility] Comment on above: Home Health orders Start: 07-25-2022 Non-patient / Non-visit Dr. Clifford Estes Work Phone: [facility] Start: 07-24-2022 Non-patient / Non-visit Dr. Clifford Estes Work Phone: [facility] Start: 07-24-2022 Non-patient / Non-visit Dr. Clifford Estes Work Phone: [facility] Start: 07-23-2022 Non-patient / Non-visit Dr. Clifford Estes Work Phone: [facility] Start: 07-22-2022 Non-patient / Non-visit Dr. Clifford Estes Work Phone: [facility] Start: 07-22-2022 Non-patient / Non-visit Dr. Clifford Estes Work Phone: [facility] Start: 07-21-2022 Non-patient / Non-visit Dr. Clifford Estes Work Phone: [facility] Start: 07-21-2022 Non-patient / Non-visit Dr. Clifford Estes Work Phone: [facility] Start: 07-21-2022 End: 07-25-2022 Evaluation and management of inpatient [facility] Start: 07-16-2022 End: 07-16-2022 Patient encounter procedure Julita Sofia DO Work Phone: Neurology Comment on above: Spina bifida with hy drocephalus, unspecified spinal region (HCC) (Primary Dx); Acquired deformity of ankle and foot, unspecified laterality; Neurogenic bladder; SBO (small bowel obstruction) (HCC); Congenital hydrocephalus (HCC); History of brain shunt Start: 07-05-2022 End: 07-05-2022 Emergency department patient visit [facility] Start: 06-11-2022 End: 06-11-2022 Patient encounter procedure Millie Kaur APRN.CNP Work Phone: Gastroenterology Comment on above: Chronic constipation (Primary Dx) Start: 06-01-2022 End: 06-01-2022 Patient encounter procedure Azam Virgen PA-C Work Phone: Urology Comment on above: Neurogenic bladder ( Primary Dx) Start: 04-30-2022 End: 04-30-2022 Patient encounter procedure Azam Virgen PA-C Work Phone: Urology Comment on above: Neurogenic bladder ( Primary Dx) Start: 04-27-2022 Telephone encounter Clifford Estes MD Work Phone: [facility] Comment on above: PT plan of care Start: 04-23-2022 Telephone encounter Clifford Estes MD Work Phone: [facility] Comment on above: Orders Follow Up Phone Call (All Clear) Start: 04-22-2022 Telephone encounter Clifford Estes MD Work Phone: [address] [place] [address] Comment on above: Follow Up Phone Call (Post Discharge F/U attempt made. No answer.) Start: 04-20-2022 Telephone encounter Katiana Deleon taqueria WOOTEN Work Phone: [facility] Comment on above: Home Care (confirmat ion call) Start: 04-13-2022 End: 04-14-2022 Emergency department patient visit Dr. Clifford Estes [facility] Start: 04-01-2022 Telephone encounter Julita daniel DO Work Phone: Neurology Comment on above: Appointment Start: 03-31-2022 ambulatory Chriss Bradford RN [facility] Start: 03-31-2022 Telephone encounter Juvenal Henry MD Work Phone: [facility] H[facility] Comment on above: Refill Request Start: 03-27-2022 End: 03-27-2022 Emergency department patient visit Dr. Clifford Estes Work Phone: [facility] Start: 03-25-2022 Refill Julita johnson DO Work Phone: Neurology Comment on above: Refill Request Start: 03-24-2022 Refill Julita Marielos johnson DO Work Phone: Neurology Comment on above: Refill Request Start: 03-18-2022 Refill Millie Kaur APRN.[employer] Work Phone: Gastroenterology Comment on above: Refill Request Start: 03-07-2022 End: 03-07-2022 Emergency department patient visit Dr. Clifford Estes [facility] Start: 03-05-2022 End: 03-05-2022 Subsequent hospital visit by physician Ct 2 Main Qb (I-Stat) Radiology Comment on above: Small bowel obstruct ion (HCC) [K56.609] Start: 03-04-2022 Telephone encounter Ina Bernal RT(R) Radiology Comment on above: Preparations For Pro cedures (I tried calling patient to confirm premed pickup and instructions. No answer. I left a message with a call back number ) Start: 02-17-2022 ambulatory Brice Henriquez MD Work Phone: Urology Start: 02-17-2022 Telephone encounter Lamont Eller MD Work Phone: Gastroenterology Comment on above: Patient Question Start: 02-17-2022 End: 02-17-2022 Patient encounter procedure Brice Henriquez MD Work Phone: Urology Comment on above: Calculus of urinary bladder Start: 02-16-2022 Telephone encounter Lamont Eller MD Work Phone: Gastroenterology Comment on above: Patient Update Refill Request Start: 02-12-2022 End: 02-12-2022 Nursing evaluation of patient and report Nurse Urol [facility] Work Phone: Urology Comment on above: Urinary retention (P rimary Dx) Start: 02-02-2022 End: 02-02-2022 Patient encounter procedure Lamont Eller MD Work Phone: General Surgery Comment on above: Small bowel obstruct ion (HCC) (Primary Dx) Start: 01-25-2022 Telephone encounter Marcela Rowland LPN General Surgery Comment on above: Appointment Start: 01-24-2022 Non-patient / Non-visit Dr. Clifford Estes Work Phone: [facility] Start: 01-23-2022 Non-patient / Non-visit Dr. Clifford Estes Work Phone: [facility] Start: 01-22-2022 Non-patient / Non-visit Dr. Clifford Estes Work Phone: [facility] Start: 01-22-2022 Non-patient / Non-visit Dr. Clifford Estes Work Phone: [facility] Start: 01-21-2022 Non-patient / Non-visit Dr. Clifford Estes Work Phone: [facility] Start: 01-21-2022 Non-patient / Non-visit Dr. Clifford Estes Work Phone: [facility] Start: 01-20-2022 Non-patient / Non-visit Dr. Clifford Estes Work Phone: [facility] Start: 01-19-2022 End: 01-24-2022 Evaluation and management of inpatient Dr. Clifford Estes [facility] Start: 01-10-2022 End: 01-10-2022 Emergency department patient visit Dr. Clifford Estes [facility] Start: 12-26-2021 End: 12-26-2021 Emergency department patient visit Dr. Clifford Estes [facility] Start: 12-12-2021 End: 12-12-2021 Emergency department patient visit Dr. Clifford Estes [facility] Start: 11-17-2021 End: 11-17-2021 Emergency department patient visit Dr. Clifford Estes Work Phone: [facility] Procedures Date Procedure Procedure Detail Performing Clinician Start: 04-05-2024 Culture bacterial quanttative colony count urine Brea Florentino MD Work Phone: Start: 04-03-2024 XR SOFT SHOE DANCER SHUNT SERIES 5 V SKULL/NECK/CHEST/ABD/CTL ABD Brea Florentino MD Work Phone: Start: 11-28-2023 CT of abdomen and pe lvis without contrast Dr. Clifford Estes Work Phone: Start: 11-28-2023 Bacteria Detection (PCR) Start: 11-28-2023 Bacteria identified in Blood by Culture Start: 11-28-2023 SARS-CoV-2, Influenz a & RSV (PCR) Dr. lCifford Estes Work Phone: Start: 11-28-2023 Urine culture Start: 11-01-[address] Cr Estes Work Phone: Start: 09-20-2023 Plain chest X-ray Dr. Warren Estes Work Phone: Start: 09-20-2023 Bacteria identified in Blood by Culture Dr. Clifford Estes Work Phone: Start: 09-20-[address] Cr Estes Work Phone: Start: 09-20-[address] Clifford Estes Work Phone: Start: 08-09-2023 Plain X-ray abdomen Dr. Clifford Estes Work Phone: Start: 08-09-2023 CT of abdomen and pe lvis without contrast Dr. Clifford Estes Work Phone: Start: 08-03-2023 INFLUENZA VACCINE, A GE 6 MO - 64 YR, QUADRIVALENT (AFLURIA, FLULAVAL, FLUZONE) Clifford Estes MD Work Phone: Start: 05-11-2023 Plain X-ray abdomen Dr. Clifford Estes Work Phone: Start: 05-10-2023 Plain X-ray abdomen Dr. Clifford Estes Work Phone: Start: 05-09-[address] Cr Estes Work Phone: Start: 05-09-[address] Clifford Esets Work Phone: Start: 05-09-2023 Plain X-ray abdomen Dr. Clifford Estes Work Phone: Start: 05-09-2023 CT of abdomen and pe lvis with oral contrast Dr. Clifford Estes Work Phone: Start: 04-02-2023 CT of abdomen and pe lvis without contrast Dr. Clifford Estes Work Phone: Start: 04-02-[address] Cr Estes Work Phone: Start: 04-02-2023 Plain X-ray abdomen Dr. Clifford Estes Work Phone: Start: 03-30-[address] Cr Estes Work Phone: Start: 02-22-[address] Clifford Estes Work Phone: Start: 02-21-2023 Plain X-ray abdomen Dr. Clifford Estes Work Phone: Start: 02-20-2023 Plain X-ray abdomen Start: 02-20-2023 CT of abdomen and pe lvis without contrast Start: 02-20-[address] Cr Estes Work Phone: Start: 12-11-[address] Shafer in [facility] Comment on above: Performed By: #### V FPA4 #### [facility] [address] [facility] [place] [address] Start: 12-11-2022 Plain X-ray abdomen Dr. Clifford Estes Work Phone: Start: 12-10-2022 CT of abdomen and pe lvis without contrast Dr. Clifford Estes Work Phone: Start: 09-23-2022 Plain X-ray abdomen Dr. Clifford Estes Work Phone: Start: 09-22-[address] Clifford Estes Work Phone: Start: 09-20-2022 CT of abdomen and pe lvis without contrast Dr. Clifford Estes Work Phone: Start: 09-19-2022 Diagnostic radiograp hy of abdomen Dr. Clifford Estes Work Phone: Start: 09-10-2022 CT of abdomen and pe lvis with oral contrast Dr. Clifford Estes Work Phone: Start: 09-10-2022 Plain X-ray abdomen Dr. Clifford Estes Work Phone: Start: 08-10-2022 Plain chest X-ray Dr. Warren Estes Work Phone: Start: 07-30-2022 INFLUENZA VACCINE QUADRIVALENT 6 MO - 64 YRS IM Clifford Estes MD Work Phone: Start: 07-24-2022 Plain X-ray abdomen Dr. Clifford Estes Work Phone: Start: 07-23-2022 Diagnostic radiograp hy of abdomen Dr. Clifford Estes Work Phone: Start: 07-22-2022 Plain X-ray abdomen Dr. Clifford Estes Work Phone: Start: 07-21-2022 End: 07-21-2022 Plain X-ray abdomen Start: 07-21-2022 CT of abdomen and pe lvis without contrast Start: 04-13-2022 Plain X-ray abdomen Dr. Clifford Estes Work Phone: Start: 04-13-2022 CT of abdomen and pe lvis without contrast Dr. Clifford Estes Work Phone: Start: 04-13-2022 End: 04-13-[address] Clifford Estes Work Phone: Start: 03-27-[address] Cr Estes Work Phone: Start: 03-07-[address] Cr Estes Work Phone: Start: 03-05-2022 Ct abdomen & pelvis w/o contrast material Nicho Jimenes MD Work Phone: Start: 01-24-2022 Diagnostic radiograp hy of abdomen, decubitus and erect Dr. Clifford Estes Work Phone: Start: 01-23-2022 Plain X-ray abdomen Dr. Clifford Estes Work Phone: Start: 01-22-2022 Plain X-ray abdomen Dr. Clifford Estes Work Phone: Start: 01-21-[address] Clifford Estes Work Phone: Start: 01-19-[address] Cr Estes Work Phone: Start: 01-19-2022 End: 01-19-[address] Clifford Estes Work Phone: Start: 01-19-2022 Plain X-ray abdomen Dr. Clifford Estes Work Phone: Start: 01-19-2022 CT of abdomen and pe lvis without contrast Dr. Clifford Estes Work Phone: Start: 01-10-[address] Cr Estes Work Phone: Start: 12-12-[address] Cr Estes Work Phone: Start: 11-17-[address] Cr frias [place] Work Phone: Start: 03-27-2021 Colonoscopy PHUONG Thompson Work Phone: Start: 09-11-2020 Lipid 1996 panel - S yue or Plasma Clifford Estes MD Work Phone: Start: 08-22-2018 Adult depression scr eening assessment PHUONG Eller MD Work Phone: Bacteria identified in Blood by Culture Bacteria identified in Blood by Culture Dr. Clifford Estes Work Phone: Bacteria identified in Blood by Culture Dr. Clifford Estes Work Phone: SARS-CoV-2 & FLU Ant igen (Rapid) Dr. Clifford Estes Work Phone: SARS-CoV-2 & FLU Ant igen (Rapid) Dr. Clifford Estes Work Phone: SARS-CoV-2 & FLU Ant igen (Rapid) Dr. Clifford Estes Work Phone: Urine culture Urine culture Dr. Clifford Wade Work Phone: Urine culture Dr. Clifford Wade Work Phone: Urine culture Dr. Clifford Wade Work Phone: Urine culture Dr. Clifford Wade Work Phone: Viral antigen assay Viral antigen assay Dr. Edmar Estes Work Phone: Plan of Treatment Date Care Activity Detail Author Start: 05-08-2028 Diabetes Screening Diabetes Screening [facility] Start: 01-28-2028 PROSTATE CANCER SCREENING DISCUSSION PROSTATE CANCER SCREENING DISCUSSION [facility] Start: 01-28-2028 Prostate specific antigen measurement Prostate Cancer Screening Discussion [facility] Start: 12-11-2027 Screening for malignant neoplasm of colon [facility] Start: 06-12-2027 Diabetes Screening Diabetes Screening [facility] Start: 04-13-2027 Diabetes Screening Diabetes Screening [facility] Start: 04-03-2027 Diabetes Screening Diabetes Screening [facility] Start: 10-25-2026 Diabetes Screening Diabetes Screening [facility] Start: 10-12-2026 Diabetes Screening Diabetes Screening [facility] Start: 08-03-2026 Diabetes Screening Diabetes Screening [facility] Start: 06-20-2026 End: 06-20-2026 ambulatory 06/20/2026 9:00 AM EDT [facility]rology [address] [address] Brea Florentino MD [address] [place] [address] 1 year vv with US and lab prior per cc chart Urology Comment on above: 1 year vv with US and lab prior per cc yudelka veronica Start: 06-09-2026 End: 06-09-2026 Patient encounter procedure 06/09/2026 7:45 AM EDT Appointment Radiology [address] [place] [address] Neurogenic bladder [N31.9] Radiology Comment on above: Neurogenic bladder [N31.9] Start: 06-09-2026 End: 06-09-2026 ambulatory 06/09/2026 7:30 AM EDT Results Only [place] [facility] [address] [place] [address] Neurogenic bladder [N31.9] [place] [facility] Comment on above: Neurogenic bladder [N31.9] Start: 06-07-2026 End: 09-06-2026 Basic metabolic 2000 panel - Serum or Plasma BASIC METABOLIC PANEL Lab Routine Neurogenic bladder Expected: 06/07/2026, Expires: 09/06/2026 [facility] Comment on above: Expected: 06/07/2026, Expires: Start: 06-07-2026 End: 09-06-2026 CYSTATIN C CYSTATIN C Lab Routine Neurogenic bladder Expected: 06/07/2026, Expires: 09/06/2026 [facility] Comment on above: Expected: 06/07/2026, Expires: Start: 06-07-2026 End: 07-08-2026 US Kidney - bilateral and Urinary bladder US KIDNEY/BLADDER Radiology Routine Neurogenic bladder Expected: 06/07/2026, Expires: 07/08/2026 [facility] Work Phone: Comment on above: Expected: 06/07/2026, Expires: Start: 05-26-2026 DIABETES SCREEN DIABETES SCREEN [facility] Start: 05-26-2026 Diabetes Screening Diabetes Screening [facility] Start: 05-20-2026 DIABETES SCREEN DIABETES SCREEN [facility] Start: 05-19-2026 DIABETES SCREEN DIABETES SCREEN [facility] Start: 04-06-2026 DIABETES SCREEN DIABETES SCREEN [facility] Start: 01-27-2026 DIABETES SCREEN DIABETES SCREEN [facility] Start: 09-11-2025 Lipid 1996 panel - Serum or Plasma Lipid Screening [facility] Start: 09-11-2025 Lipid panel Lipid Screening [facility] Start: 09-11-2025 LIPID SCREEN LIPID SCREEN [facility] Start: 09-03-2025 DIABETES SCREEN DIABETES SCREEN [facility] Start: 08-24-2025 DIABETES SCREEN DIABETES SCREEN [facility] Start: 07-30-2025 DIABETES SCREEN DIABETES SCREEN [facility] Start: 07-30-2025 Urine microalbumin profile [facility] Start: 07-15-2025 Influenza vaccination [facility] Start: 06-10-2025 End: 06-10-2025 Documentation procedure 06/10/2025 Plan of Care Documentation [facility] [address] [place] [id number] [facility] Start: 06-07-2025 End: 06-07-2025 Patient encounter procedure 06/07/2025 9:00 AM EDT Office Visit Urology [address] [address] Brea Florentino MD [address] [place] [address] one year follow up Urology Comment on above: one year follow up Start: 05-14-2025 End: 05-14-2025 Patient encounter procedure 05/14/2025 2:00 PM EDT Office Visit Urology [address] [address] Brea Florentino MD [address] [place] [address] one year follow up Urology Comment on above: one year follow up Start: 05-10-2025 End: 05-10-2025 Patient encounter procedure 05/10/2025 9:00 AM EDT Office Visit Urology [address] [address] Brea Florentino MD [address] [place] [address] one year follow up Urology Comment on above: one year follow up Start: 05-08-2025 End: 08-07-2025 Basic metabolic 2000 panel - Serum or Plasma BASIC METABOLIC PANEL Lab Routine Neurogenic bladder Expected: 05/08/2025 (Approximate), Expires: 08/07/2025 [facility] Comment on above: Expected: 05/08/2025 (Approximate), Expi res: 08/07/2025 Start: 05-08-2025 End: 08-07-2025 CYSTATIN C CYSTATIN C Lab Routine Neurogenic bladder Expected: 05/08/2025 (Approximate), Expires: 08/07/2025 [facility] Comment on above: Expected: 05/08/2025 (Approximate), Expi res: 08/07/2025 Start: 05-08-2025 End: 06-07-2025 US Kidney - bilateral and Urinary bladder [facility] Work Phone: Comment on above: Expected: 05/08/2025 (Approximate), Expi res: 06/07/2025 Start: 05-08-2025 End: 05-08-2025 Patient encounter procedure 05/08/2025 7:45 AM EDT Appointment Radiology [address] [place] [address] US KIDNEY/BLADDER Radiology Comment on above: US KIDNEY/BLADDER Start: 05-08-2025 End: 05-08-2025 ambulatory 05/08/2025 7:15 AM EDT Results Only Isabela [place] [facility] [address] [place] [address] BASIC METABOLIC PANEL Isabel[place] [facility] Comment on above: BASIC METABOLIC PANEL Start: 04-19-2025 DIABETES SCREEN DIABETES SCREEN [facility] Start: 04-10-2025 End: 04-10-2025 Documentation procedure 04/10/2025 Plan of Care Documentation [facility] [address] [place] [address], [place] [address] [facility] Start: 02-08-2025 End: 02-08-2025 Documentation procedure 02/08/2025 Plan of Care Documentation [facility] [address] [place] [address], [place] [address] [facility] Start: 01-27-2025 DIABETES SCREEN DIABETES SCREEN [facility] Start: 12-13-2024 End: 12-13-2024 Documentation procedure 12/13/2024 Plan of Care Documentation [facility] [address] [place] [address], [place] [address] [facility] Start: 11-14-2024 Medicare Advantage Annual Wellness Visit Medicare Advantage Annual Wellness Visit [facility] Start: 10-12-2024 End: 10-12-2024 Documentation procedure 10/12/2024 Plan of Care Documentation [facility] [address] [place] [address], [place] [address] [facility] Start: 08-22-2024 End: 11-21-2024 Bacteria identified in Urine by Culture URINE CULTURE Microbiology Routine Malodorous urine Expected: 08/22/2024, Expires: 11/21/2024 [facility] Comment on above: Expected: 08/22/2024, Expires: Start: 08-22-2024 End: 11-21-2024 Urinalysis complete panel - Urine URINALYSIS, WITH MICROSCOPIC Lab Routine Malodorous urine Expected: 08/22/2024, Expires: 11/21/2024 [facility] Work Phone: Comment on above: Expected: 08/22/2024, Expires: Start: 08-15-2024 End: 08-15-2024 Documentation procedure 08/15/2024 Plan of Care Documentation [facility] [address] [place] [address] [facility] Start: 07-15-2024 Covid-19 Vaccine () Covid-19 Vaccine () [facility] Start: 07-15-2024 Covid-19 Vaccine () Covid-19 Vaccine () [facility] Start: 07-15-2024 Influenza [facility] Start: 07-02-2024 End: 07-02-2024 Patient encounter procedure 07/02/2024 2:00 PM EDT Office Visit Gastroenterology [address] [address] Nayely Nazario MD [address] [place] [address] Small Bowel Obstruction, F/up after hospital discharge Gastroenterology Comment on above: Small Bowel Obstruction, F/up after hosp ital discharge Start: 06-25-2024 End: 06-25-2024 Patient encounter procedure 06/25/2024 2:20 PM EDT Office Visit Family [facility] [place] [address] [place], [place] [id number] Yvette Gao APRN.[employer] [address] [place], [place] [id number] Hospital FU / D/C [facility] 06/12/24 [facility] Comment on above: Hospital FU / D/C [facility] 06/12/24 [facility] Start: 05-08-2024 End: 05-08-2024 Patient encounter procedure 05/08/2024 4:15 PM EDT Office Visit Urology [address] [address] Brea Florentino MD [address] [place] [address] 1 month cath change/post op per staff msg Urology Comment on above: 1 month cath change/post op per staff ms g Start: 04-12-2024 End: 04-12-2024 Admission to same day surgery center 04/12/2024 7:30 AM EDT - 04/12/2024 10:45 AM EDT Surgery Admitting [address] [place] [address] Brea Florentino MD [address] [place] [address] DIVERTICULECTOMY BLADDER Admitting Comment on above: DIVERTICULECTOMY BLADDER Start: 04-12-2024 End: 04-12-2024 Cysto w/insert ureteral stent INSERTION STENT URETERAL Diverticulum of bladder Bladder stones 04/12/2024 7:30 AM EDT [facility] Start: 04-12-2024 End: 04-12-2024 Cystolithotomy cystotomy w/rmvl calculus CYSTOLITHOTOMY Diverticulum of bladder Bladder stones 04/12/2024 7:30 AM EDT [facility] Start: 04-12-2024 End: 04-12-2024 Cystotomy excise bladder diverticulum 1/multiple DIVERTICULECTOMY BLADDER Diverticulum of bladder Bladder stones 04/12/2024 7:30 AM EDT [facility] Start: 04-12-2024 End: 04-12-2024 Cystourethroscopy CYSTOSCOPY FLEXIBLE Diverticulum of bladder Bladder stones 04/12/2024 7:30 AM EDT [facility] Start: 04-12-2024 Subsequent hospital visit by physician 04/12/2024 7:30 AM EDT Hospital Encounter Admitting [address] [place] [address] Brea Florentino MD [address] [place] [address] Diverticulum of bladder [N32.3] Admitting Comment on above: Diverticulum of bladder [N32.3] Start: 04-10-2024 End: 04-10-2024 Patient encounter procedure 04/10/2024 10:00 AM EDT Office Visit General Surgery [address] [id number] Paco Murillo MD [address] [place] [address] NEW/HERNIA General Surgery Comment on above: NEW/HERNIA Start: 04-05-2024 End: 04-05-2024 Anesthesia consultation 04/05/2024 1:40 PM EDT PAT Pre Anesthesia [address] [place] [id number] 6, [address] [place] [id number] Pre-Op, , Dr. Florentino Pre Anesthesia Comment on above: Pre-Op, , Dr. Florentino Start: 04-05-2024 End: 04-05-2024 Patient encounter procedure 04/05/2024 1:00 PM EDT Office Visit Admitting [address] [address] A12, Admit Interview [address] [place] [id number] Pre-Op Admitting Comment on above: Pre-Op Start: 04-05-2024 End: 04-05-2024 Nursing evaluation of patient and report 04/05/2024 11:00 AM EDT Nurse Visit Urology [address] [address] Isadora Garvin RN [address] [address] Pre-Op Per Cure form [facility] U[facility] Comment on above: Pre-Op Per Cure form [facility] Start: 04-03-2024 End: 04-12-2024 Bacteria identified in Urine by Culture URINE CULTURE Microbiology Routine Diverticulum of bladder Bladder stones Expected: 04/03/2024, Expires: 04/12/2024 [facility] Comment on above: Expected: 04/03/2024, Expires: 4 Start: 04-03-2024 End: 04-12-2024 CBC panel - Blood by Automated count COMPLETE BLOOD COUNT Lab Routine Diverticulum of bladder Bladder stones Expected: 04/03/2024, Expires: 04/12/2024 [facility] Work Phone: Comment on above: Expected: 04/03/2024, Expires: 4 Start: 04-03-2024 End: 04-12-2024 Comprehensive metabolic 2000 panel - Serum or Plasma COMPREHENSIVE METABOLIC PANEL Lab Routine Diverticulum of bladder Bladder stones Expected: 04/03/2024, Expires: 04/12/2024 [facility] Comment on above: Expected: 04/03/2024, Expires: 4 Start: 04-03-2024 End: 04-12-2024 CYSTATIN C CYSTATIN C Lab Routine Diverticulum of bladder Bladder stones Expected: 04/03/2024, Expires: 04/12/2024 [facility] Comment on above: Expected: 04/03/2024, Expires: 4 Start: 04-03-2024 End: 04-03-2024 ambulatory 04/03/2024 12:45 PM EDT Results Only [facility] [address] [address] [place] [address] Lab Pre-Op [facility] [address] Comment on above: Lab Pre-Op Start: 04-03-2024 End: 04-03-2024 Patient encounter procedure Radiology Comment on above: Shunt Series XR Spina bifida of lumb ar region with hydrocephalus (HCC) [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] Start: 03-21-2024 End: 03-21-2024 Patient encounter procedure 03/21/2024 2:30 PM EDT Office Visit Gastroenterology [address] [address] Beck Mar MD [address] [facility] [place] [address] Neurogenic bowel, please call Darrion Bansal (sister) [phone] Gastroenterology Comment on above: Neurogenic bowel, please call Darrion Bansal (sister) [phone] Start: 03-13-2024 End: 03-13-2024 Patient encounter procedure 03/13/2024 2:45 PM EDT Office [place] [address] Pre-Op [employer] [facility] Comment on above: Pre-Op Start: 02-21-2024 End: 05-22-2024 CYSTATIN C CYSTATIN C Lab Routine Neurogenic bladder Expected: 02/21/2024, Expires: 05/22/2024 [facility] Work Phone: Comment on above: Expected: 02/21/2024, Expires: Start: 02-10-2024 Urine culture Urine Culture [facility] Start: 02-10-2024 [facility] Start: 01-28-2024 HEPATITIS C SCREENING HEPATITIS C SCREENING [facility] Comment on above: Postponed from 1985 (Declined at t his time) Start: 01-28-2024 Hepatitis C screening Hepatitis C Screening [facility] Comment on above: Postponed from 1985 (Declined at t his time) Start: 01-28-2024 SHINGRIX VACCINE (1 of 2) SHINGRIX VACCINE (1 of 2) [facility] Comment on above: Postponed from 2017 (Declined at t his time) Start: 01-23-2024 End: 04-23-2024 Bacteria identified in Urine by Culture URINE CULTURE Microbiology Routine Recurrent UTI (urinary tract infection) Expected: 01/23/2024, Expires: 04/23/2024 [facility] Work Phone: Comment on above: Expected: 01/23/2024, Expires: Start: 01-23-2024 End: 04-23-2024 Urinalysis complete panel - Urine URINALYSIS, WITH MICROSCOPIC Lab Routine Recurrent UTI (urinary tract infection) Expected: 01/23/2024, Expires: 04/23/2024 [facility] Work Phone: Comment on above: Expected: 01/23/2024, Expires: 4 Start: 11-28-2023 [facility] Start: 11-28-2023 [facility] Start: 11-28-2023 End: 11-28-2023 Blood culture [facility] Start: 11-28-2023 Bacteria identified in Blood by Culture Blood Culture [facility] Start: 11-28-2023 Bacteria identified in Urine by Culture Urine Culture [facility] Start: 11-14-2023 Behavioral Health Screening Behavioral Health Screening [facility] Start: 11-14-2023 Depression Assessment Depression Assessment [facility] Start: 11-01-2023 [facility] Start: 11-01-2023 [facility] Start: 11-01-2023 Bacteria identified in Urine by Culture Urine Culture [facility] Start: 10-14-2023 End: 01-13-2024 ACTH STIMULATION,3 TIME POINTS ACTH STIMULATION,3 TIME POINTS Lab Routine Hyponatremia Expected: 10/14/2023, Expires: 01/13/2024 [facility] Work Phone: Comment on above: Expected: 10/14/2023, Expires: 4 Start: 10-14-2023 End: 01-13-2024 Basic metabolic 2000 panel - Serum or Plasma BASIC METABOLIC PNL Lab Routine Hyponatremia Expected: 10/14/2023, Expires: 01/13/2024 [facility] Work Phone: Comment on above: Expected: 10/14/2023, Expires: 4 Start: 10-14-2023 End: 01-13-2024 Cortisol [Mass/volume] in Serum or Plasma CORTISOL BLD Lab Routine Hyponatremia Expected: 10/14/2023, Expires: 01/13/2024 [facility] Work Phone: Comment on above: Expected: 10/14/2023, Expires: 4 Start: 10-04-2023 End: 01-03-2024 Basic metabolic 2000 panel - Serum or Plasma [facility] Work Phone: Comment on above: Expected: 10/04/2023, Expires: 4 Start: 09-22-2023 Referral to service [facility] Start: 09-22-2023 Patient discharge [facility] Start: 09-22-2023 Speech therapy assessment [facility] Start: 09-21-2023 Following clinical pathway protocol [facility] Start: 09-20-2023 End: 09-20-2023 [facility] Start: 09-20-2023 Assessment of risk of venous thromboembolism [facility] Start: 09-20-2023 Inhalation therapy procedure [facility] Start: 09-20-2023 Insertion of catheter into peripheral vein [facility] Start: 09-20-2023 Measuring intake and output [facility] Start: 09-20-2023 Providing care according to standard [facility] Start: 09-20-2023 Verification routine [facility] Start: 09-20-2023 End: 09-20-2023 Admission procedure [facility] Start: 09-20-2023 Hospital admission, emergency, from emergency room, medical nature [facility] Start: 09-20-2023 End: 09-20-2023 Blood culture [facility] Start: 09-20-2023 End: 09-20-2023 [facility] Start: 09-20-2023 Bacteria identified in Blood by Culture Blood Culture [facility] Start: 09-20-2023 Bacteria identified in Urine by Culture Urine Culture [facility] Start: 09-20-2023 Patient referral to dietitian [facility] Start: 08-15-2023 Patient discharge [facility] Start: 08-14-2023 End: 08-14-2023 [facility] Start: 08-14-2023 Speech therapy assessment [facility] Start: 08-13-2023 [facility] Start: 08-13-2023 [facility] Start: 08-13-2023 [facility] Start: 08-10-2023 Referral to service [facility] Start: 08-10-2023 [facility] Start: 08-09-2023 Application of intermittent pneumatic compression device [facility] Start: 08-09-2023 Following clinical pathway protocol [facility] Start: 08-09-2023 Assessment of risk of venous thromboembolism [facility] Start: 08-09-2023 Documentation procedure [facility] Start: 08-09-2023 Insertion of catheter into peripheral vein [facility] Start: 08-09-2023 Providing care according to standard [facility] Start: 08-09-2023 Provision of activity privileges [facility] Start: 08-09-2023 Referral to occupational therapist [facility] Start: 08-09-2023 Referral to service [facility] Start: 08-09-2023 [facility] Start: 08-09-2023 Verification routine [facility] Start: 08-09-2023 Admission procedure [facility] Start: 08-05-2023 End: 10-05-2023 Basic metabolic 2000 panel - Serum or Plasma BASIC METABOLIC PNL Lab Routine Hyponatremia Expected: 08/05/2023, Expires: 10/05/2023 [facility] Work Phone: Comment on above: Expected: 08/05/2023, Expires: 3 Start: 08-03-2023 End: 10-03-2023 Bacteria identified in Urine by Culture [facility] Work Phone: Comment on above: Expected: 08/03/2023, Expires: 3 Start: 08-03-2023 End: 10-03-2023 Comprehensive metabolic 2000 panel - Serum or Plasma [facility] Work Phone: Comment on above: Expected: 08/03/2023, Expires: 3 Start: 08-03-2023 End: 10-03-2023 Urinalysis complete panel - Urine [facility] Work Phone: Comment on above: Expected: 08/03/2023, Expires: 3 Start: 07-15-2023 Covid-19 Vaccine () Covid-19 Vaccine () [facility] Start: 07-15-2023 Influenza vaccination INFLUENZA (#1) [facility] Start: 05-30-2023 End: 07-30-2023 Basic metabolic 2000 panel - Serum or Plasma BASIC METABOLIC PNL Lab Routine Hyponatremia Expected: 05/30/2023, Expires: 07/30/2023 [facility] Work Phone: Comment on above: Expected: 05/30/2023, Expires: 3 Start: 05-20-2023 End: 07-20-2023 Basic metabolic 2000 panel - Serum or Plasma BASIC METABOLIC PNL Lab Routine Hyponatremia Expected: 05/20/2023, Expires: 07/20/2023 [facility] Work Phone: Comment on above: Expected: 05/20/2023, Expires: 3 Start: 05-18-2023 End: 07-18-2023 Basic metabolic 2000 panel - Serum or Plasma BASIC METABOLIC PNL Lab Routine Renal insufficiency Expected: 05/18/2023, Expires: 07/18/2023 [facility] Work Phone: Comment on above: Expected: 05/18/2023, Expires: 3 Start: 05-16-2023 Patient discharge [facility] Start: 05-15-2023 Referral to gastroenterology service [facility] Start: 05-15-2023 [facility] Start: 05-13-2023 [facility] Start: 05-13-2023 [facility] Start: 05-12-2023 [facility] Start: 05-10-2023 [facility] Start: 05-10-2023 Referral to service [facility] Start: 05-09-2023 Application of intermittent pneumatic compression device [facility] Start: 05-09-2023 Assessment of risk of venous thromboembolism [facility] Start: 05-09-2023 Documentation procedure [facility] Start: 05-09-2023 Insertion of catheter into peripheral vein [facility] Start: 05-09-2023 Providing care according to standard [facility] Start: 05-09-2023 Referral to service [facility] Start: 05-09-2023 [facility] Start: 05-09-2023 Following clinical pathway protocol [facility] Start: 05-09-2023 Admission procedure [facility] Start: 05-09-2023 Patient referral to dietitian [facility] Start: 04-03-2023 Patient discharge [facility] Start: 04-02-2023 [facility] Start: 04-02-2023 Assessment of risk of venous thromboembolism [facility] Start: 04-02-2023 Insertion of catheter into peripheral vein [facility] Start: 04-02-2023 Providing care according to standard [facility] Start: 04-02-2023 Provision of activity privileges [facility] Start: 04-02-2023 Referral to occupational therapist [facility] Start: 04-02-2023 Referral to service [facility] Start: 04-02-2023 [facility] Start: 04-02-2023 Following clinical pathway protocol [facility] Start: 04-02-2023 Admission procedure [facility] Start: 03-30-2023 Emergency department visit high/urgent severity EMERGENCY DEPT VISIT MOD MDM [facility] Start: 03-30-2023 Insj temp ndwellg bladder catheter simple INSERT TEMP BLADDER CATH [facility] Start: 02-24-2023 Patient discharge [facility] Start: 02-23-2023 [facility] Start: 02-21-2023 Referral to service [facility] Start: 02-21-2023 Consultation [facility] Start: 02-20-2023 Following clinical pathway protocol [facility] Start: 02-20-2023 Aspiration precautions [facility] Start: 02-20-2023 Assessment of risk of venous thromboembolism [facility] Start: 02-20-2023 Fall prevention [facility] Start: 02-20-2023 Inhalation therapy procedure [facility] Start: 02-20-2023 Insertion of catheter into peripheral vein [facility] Start: 02-20-2023 Insertion of nasogastric tube [facility] Start: 02-20-2023 Measuring intake and output [facility] Start: 02-20-2023 Providing care according to standard [facility] Start: 02-20-2023 Provision of activity privileges [facility] Start: 02-20-2023 Referral to general surgeon [facility] Start: 02-20-2023 Referral to occupational therapist [facility] Start: 02-20-2023 Referral to service [facility] Start: 02-20-2023 [facility] Start: 02-20-2023 Verification routine [facility] Start: 02-20-2023 Admission procedure [facility] Start: 02-20-2023 [facility] Start: 02-20-2023 End: 02-20-2023 [facility] Start: 2022 PROSTATE CANCER SCREENING DISCUSSION PROSTATE CANCER SCREENING DISCUSSION [facility] Start: 11-14-2022 DEPRESSION ASSESSMENT DEPRESSION ASSESSMENT [facility] Start: 10-29-2022 [facility] Work Phone: Start: 09-28-2022 Blood chemistry [facility] Work Phone: Start: 09-27-2022 Blood chemistry [facility] Work Phone: Start: 09-26-2022 Blood chemistry [facility] Work Phone: Start: 09-25-2022 Blood chemistry [facility] Work Phone: Start: 09-24-2022 Blood chemistry [facility] Work Phone: Start: 09-23-2022 Patient discharge [facility] Start: 09-23-2022 End: 09-23-2022 [facility] Start: 09-23-2022 [facility] Start: 09-22-2022 [facility] Start: 09-22-2022 [facility] Start: 09-22-2022 Referral to occupational therapist [facility] Start: 09-22-2022 Referral to service [facility] Start: 09-20-2022 Referral to service [facility] Start: 09-20-2022 Assessment of risk of venous thromboembolism [facility] Start: 09-20-2022 Consultation [facility] Start: 09-20-2022 Incentive spirometry [facility] Start: 09-20-2022 Insertion of catheter into peripheral vein [facility] Start: 09-20-2022 Insertion of nasogastric tube [facility] Start: 09-20-2022 Patient referral to dietitian [facility] Start: 09-20-2022 Providing care according to standard [facility] Start: 09-20-2022 Provision of activity privileges [facility] Start: 09-20-2022 Referral to general surgeon [facility] Start: 09-20-2022 Referral to service [facility] Start: 09-20-2022 [facility] Start: 09-20-2022 Following clinical pathway protocol [facility] Start: 09-20-2022 Verification routine [facility] Work Phone: Start: 09-20-2022 Admission procedure [facility] Start: 09-12-2022 Patient discharge [facility] Start: 09-11-2022 [facility] Start: 09-10-2022 End: 09-11-2022 [facility] Start: 09-10-2022 Referral to service [facility] Start: 09-10-2022 Assessment of risk of venous thromboembolism [facility] Start: 09-10-2022 Insertion of catheter into peripheral vein [facility] Start: 09-10-2022 Oxygen therapy [facility] Start: 09-10-2022 Providing care according to standard [facility] Start: 09-10-2022 Referral to general surgeon [facility] Start: 09-10-2022 Admission procedure [facility] Start: 09-10-2022 Following clinical pathway protocol [facility] Start: 09-09-2022 [facility] Work Phone: Start: 09-09-2022 End: 09-09-2022 Blood culture [facility] Work Phone: Start: 08-25-2022 End: 10-25-2022 Basic metabolic 2000 panel - Serum or Plasma BASIC METABOLIC PNL Lab Routine Hyponatremia Expected: 08/25/2022, Expires: 10/25/2022 [facility] Work Phone: Comment on above: Expected: 08/25/2022, Expires: 2 Start: 08-25-2022 End: 10-25-2022 CBC W Auto Differential panel - Blood CBC + DIFF Lab Routine Thrombocytosis Expected: 08/25/2022, Expires: 10/25/2022 [facility] Work Phone: Comment on above: Expected: 08/25/2022, Expires: 2 Start: 08-24-2022 End: 10-24-2022 Basic metabolic 2000 panel - Serum or Plasma [facility] Work Phone: Comment on above: Expected: 08/24/2022, Expires: 2 Start: 08-24-2022 End: 10-24-2022 CBC W Auto Differential panel - Blood [facility] Work Phone: Comment on above: Expected: 08/24/2022, Expires: 2 Start: 08-19-2022 COVID-19 VACCINE (4 - Booster for Moderna series) COVID-19 VACCINE (4 - Booster for Moderna series) [facility] Start: 08-14-2022 Patient discharge [facility] Start: 08-14-2022 [facility] Start: 08-13-2022 [facility] Start: 08-12-2022 Consultation [facility] Start: 08-12-2022 Contact precautions [facility] Start: 08-11-2022 End: 08-12-2022 [facility] Start: 08-11-2022 Referral to service [facility] Start: 08-11-2022 Following clinical pathway protocol [facility] Start: 08-11-2022 Assessment of risk of venous thromboembolism [facility] Start: 08-11-2022 Insertion of catheter into peripheral vein [facility] Start: 08-11-2022 Measuring intake and output [facility] Start: 08-11-2022 Oxygen therapy [facility] Start: 08-11-2022 Patient referral to dietitian [facility] Start: 08-11-2022 Providing care according to standard [facility] Start: 08-11-2022 Provision of activity privileges [facility] Start: 08-11-2022 Referral to occupational therapist [facility] Start: 08-11-2022 Referral to service [facility] Start: 08-11-2022 Seizure precautions [facility] Start: 08-10-2022 End: 08-11-2022 [facility] Start: 08-10-2022 Verification routine [facility] Work Phone: Start: 08-10-2022 Admission procedure [facility] Start: 08-10-2022 [facility] Work Phone: Start: 08-10-2022 End: 08-10-2022 Blood culture [facility] Work Phone: Start: 08-10-2022 End: 10-10-2022 Bacteria identified in Urine by Culture URINE CULTURE Microbiology Routine Abnormal urine color Urinary catheter in place Expected: 08/10/2022, Expires: 10/10/2022 [facility] Work Phone: Comment on above: Expected: 08/10/2022, Expires: 2 Start: 08-10-2022 End: 10-10-2022 URINALYSIS, REFLEX MICROSCOPIC URINALYSIS, REFLEX MICROSCOPIC Lab Routine Abnormal urine color Urinary catheter in place Expected: 08/10/2022, Expires: 10/10/2022 [facility] Work Phone: Comment on above: Expected: 08/10/2022, Expires: 2 Start: 08-10-2022 [facility] Work Phone: Start: 08-02-2022 End: 10-02-2022 Basic metabolic 2000 panel - Serum or Plasma BASIC METABOLIC PNL Lab Routine Hyperkalemia Expected: 08/02/2022, Expires: 10/02/2022 [facility] Work Phone: Comment on above: Expected: 08/02/2022, Expires: 2 Start: 08-02-2022 End: 10-02-2022 Platelets [#/volume] in Blood PLTCT (PLATELET COUNT) Lab Routine Thrombocytosis Expected: 08/02/2022, Expires: 10/02/2022 [facility] Work Phone: Comment on above: Expected: 08/02/2022, Expires: 2 Start: 07-30-2022 End: 09-29-2022 Basic metabolic 2000 panel - Serum or Plasma [facility] Work Phone: Comment on above: Expected: 07/30/2022, Expires: 2 Start: 07-30-2022 End: 09-29-2022 CBC W Auto Differential panel - Blood [facility] Work Phone: Comment on above: Expected: 07/30/2022, Expires: Start: 07-25-2022 Patient discharge [facility] Work Phone: Start: 07-24-2022 End: 07-24-2022 [facility] Work Phone: Start: 07-24-2022 [facility] Work Phone: Start: 07-22-2022 Referral to occupational therapist [facility] Work Phone: Start: 07-22-2022 End: 07-22-2022 Referral to service [facility] Work Phone: Start: 07-21-2022 Blood culture [facility] Work Phone: Start: 07-21-2022 Insertion of nasogastric tube [facility] Work Phone: Start: 07-21-2022 Following clinical pathway protocol [facility] Work Phone: Start: 07-21-2022 Ambulation without limitation [facility] Work Phone: Start: 07-21-2022 Assessment of risk of venous thromboembolism [facility] Work Phone: Start: 07-21-2022 Inhalation therapy procedure [facility] Work Phone: Start: 07-21-2022 Insertion of catheter into peripheral vein [facility] Work Phone: Start: 07-21-2022 Providing care according to standard [facility] Work Phone: Start: 07-21-2022 Referral to general surgeon [facility] Work Phone: Start: 07-21-2022 [facility] Work Phone: Start: 07-21-2022 End: 07-21-2022 Plain X-ray abdomen Abdomen Single View (Portable) [facility] Work Phone: Start: 07-21-2022 XR Abdomen Single view [facility] Work Phone: Start: 07-21-2022 Blood culture [facility] Work Phone: Start: 07-21-2022 Verification routine [facility] Work Phone: Start: 07-21-2022 Admission procedure [facility] Work Phone: Start: 07-21-2022 End: 07-21-2022 [facility] Work Phone: Start: 07-21-2022 Patient referral to dietitian [facility] Work Phone: Start: 07-21-2022 [facility] Work Phone: Start: 07-15-2022 Influenza vaccination INFLUENZA (#1) [facility] Start: 07-05-2022 [facility] Work Phone: Start: 06-14-2022 COVID-19 VACCINE (4 - Booster for Moderna series) COVID-19 VACCINE (4 - Booster for Moderna series) [facility] Start: 06-14-2022 COVID-19 VACCINE (4 - Moderna series) COVID-19 VACCINE (4 - Moderna series) [facility] Start: 04-13-2022 [facility] Work Phone: Start: 04-13-2022 Bacteria identified in Blood by Culture Blood Culture [facility] Work Phone: Start: 04-13-2022 Bacteria identified in Urine by Culture Urine Culture [facility] Work Phone: Start: 03-27-2022 Bacteria identified in Urine by Culture Urine Culture [facility] Work Phone: Start: 03-27-2022 Colonoscopy COLONOSCOPY [facility] Start: 03-27-2022 COLORECTAL CANCER SCREENING COLORECTAL CANCER SCREENING [facility] Start: 03-27-2022 Screening for malignant neoplasm of colon [facility] Start: 03-07-2022 Removal of urinary catheter [facility] Work Phone: Start: 03-07-2022 Bacteria identified in Urine by Culture Urine Culture [facility] Work Phone: Start: 03-05-2022 End: 03-04-2023 Ct abdomen & pelvis w/o contrast material [facility] Work Phone: Comment on above: Expected: 03/05/2022, Expires: 3 Start: 02-26-2022 End: 02-17-2023 Ct abdomen & pelvis w/o contrast material CT FLANK WO IVCON Radiology Routine Calculus of urinary bladder Expected: 02/26/2022, Expires: 02/17/2023 [facility] Work Phone: Comment on above: Expected: 02/26/2022, Expires: 3 Start: 11-14-2021 DEPRESSION ASSESSMENT DEPRESSION ASSESSMENT [facility] Start: 10-07-2021 COVID-19 VACCINE (3 - Booster for Moderna series) COVID-19 VACCINE (3 - Booster for Moderna series) [facility] Start: 08-22-2019 Adult depression screening assessment DEPRESSION SCREENING [facility] Start: 2017 Pneumococcal Vaccine: 50+ (1 of 1 - PCV) Pneumococcal Vaccine: 50+ (1 of 1 - PCV) [facility] Start: 2017 SHINGRIX VACCINE (1 of 2) SHINGRIX VACCINE (1 of 2) [facility] Start: 2012 COLOGUARD (FIT-DNA) COLOGUARD (FIT-DNA) [facility] Start: [address] COLONOGRAPHY [facility] Start: 2012 FECAL OCCULT BLOOD FECAL OCCULT BLOOD [facility] Start: 2012 Screening for malignant neoplasm of colon [facility] Start: 2012 SIGMOIDOSCOPY SIGMOIDOSCOPY [facility] Start: 1985 Anxiety Screening Anxiety Screening [facility] Start: 1985 Depression Screening Depression Screening [facility] Start: 1985 HEPATITIS C SCREENING HEPATITIS C SCREENING [facility] Start: 1985 Hepatitis C screening Hepatitis C Screening [facility] Start: 1985 HIV SCREENING HIV SCREENING [facility] Start: 1967 HEPATITIS B (1 of 3 - 3-dose series) HEPATITIS B (1 of 3 - 3-dose series) [facility] Alanine aminotransfe rase [Enzymatic activity/volume] in Serum or Plasma [facility] Albumin [Mass/volume ] in Serum or Plasma [facility] Alkaline phosphatase [Enzymatic activity/volume] in Serum or Plasma [facility] Anion gap measurement [facility] Aspartate aminotransferase [Enzymatic activity/volume] in Serum or Plasma [facility] Bacteria identified in Blood by Culture Blood Culture [facility] Work Phone: Bacteria identified in Urine by Culture Urine Culture [facility] Bilirubin, total measurement [facility] Blood culture [facility] Work Phone: BUN/Creatinine ratio [facility] Calcium [Mass/volume ] in Serum or Plasma [facility] Carbon dioxide, tota l [Moles/volume] in Serum or Plasma [facility] Chloride [Moles/volu me] in Serum or Plasma [facility] Creatinine [Mass/vol ume] in Urine collected for unspecified duration [facility] Work Phone: Creatinine [Moles/volume] in Serum or Plasma [facility] End: 08-23-2026 CT Abdomen and Pelvis WO contrast CT FLANK WO IVCON Radiology Routine Cloudy urine Neurogenic bladder Bladder stone 1 Occurrences starting 07/24/2025 until 08/23/2026 [facility] Work Phone: Comment on above: 1 Occurrences starting 07/24/2025 until 08/23/2026 End: 05-03-2025 CT Head WO contrast CT BRAIN WO IVCON Radiology Routine 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) 1 Occurrences starting 04/03/2024 until 05/03/2025 [facility] Work Phone: Comment on above: 1 Occurrences starting 04/03/2024 until 05/03/2025 ECG COMPLETE ECG COMPLETE ECG Routine Pre-op evaluation 04/05/2024 2:10 PM EDT [facility] Work Phone: End: 02-12-2023 [facility]ANGE HANNON CHANGE Procedures Routine Urinary retention Once per month for 12 Occurrences starting 02/12/2022 until 02/12/2023 [facility] Work Phone: Comment on above: Once per month for 12 Occurrences starti ng 02/12/2022 until 02/12/2023 Glucose [Mass/volume ] in Serum or Plasma [facility] Hematocrit [Volume Fraction] of Blood [facility] Hemoglobin [Mass/vol ume] in Blood [facility] Leukocytes [#/volume ] in Blood [facility] End: 09-01-2024 LUNG DIFFUSION CAPACITY (DLCO) LUNG DIFFUSION CAPACITY (DLCO) PFT Routine Chronic cough 1 Occurrences starting 08/03/2023 until 09/01/2024 [facility] Work Phone: Comment on above: 1 Occurrences starting 08/03/2023 until 09/01/2024 Magnesium [Mass/volu me] in Serum or Plasma [facility] Mean corpuscular hemoglobin concentration determination [facility] Mean corpuscular hemoglobin determination [facility] Measurement of renal function [facility] Neutrophil count [facility] Neutrophil percent differential count [facility] Osmolality of Urine [facility] Work Phone: Patient Education [facility] Work Phone: Patient referral [facility] Work Phone: Platelets [#/volume] in Blood [facility] Potassium [Moles/vol ume] in Serum or Plasma [facility] Red blood cell count [facility] Red cell distributio n width determination [facility] Sodium [Moles/volume ] in Serum or Plasma [facility] Sodium [Moles/volume ] in Urine [facility] Work Phone: End: 09-01-2024 SPIROMETRY WITH DILATOR IF OBSTRUCTED SPIROMETRY WITH DILATOR IF OBSTRUCTED PFT Routine Chronic cough 1 Occurrences starting 08/03/2023 until 09/01/2024 [facility] Work Phone: Comment on above: 1 Occurrences starting 08/03/2023 until 09/01/2024 Total protein measurement [facility] UA DIP, URINE (POC) UA DIP, URIN E (POC) Lab Routine Screening for genitourinary condition 1 Occurrences starting 06/07/2025 [facility] Work Phone: Comment on above: 1 Occurrences starting 06/07/2025 Urea nitrogen [Mass/volume] in Serum or Plasma [facility] URINALYSIS, REFLEX MICROSCOPIC URINALYSIS, REFLEX MICROSCOPIC Lab Routine Screening for genitourinary condition Ordered: 02/17/2022 [facility] Work Phone: Comment on above: Ordered: 02/17/2022 URINALYSIS, REFLEX MICROSCOPIC URINALYSIS, REFLEX MICROSCOPIC Lab Routine Screening for genitourinary condition Ordered: 10/12/2022 [facility] Work Phone: Comment on above: Ordered: 10/12/2022 URINALYSIS, REFLEX MICROSCOPIC URINALYSIS, REFLEX MICROSCOPIC Lab Routine Screening for genitourinary condition Ordered: 02/21/2024 [facility] Work Phone: Comment on above: Ordered: 02/21/2024 URINALYSIS, REFLEX MICROSCOPIC URINALYSIS, REFLEX MICROSCOPIC Lab Routine Screening for genitourinary condition Ordered: 04/05/2024 [facility] Work Phone: Comment on above: Ordered: 04/05/2024 URINALYSIS, REFLEX MICROSCOPIC URINALYSIS, REFLEX MICROSCOPIC Lab Routine Screening for genitourinary condition Ordered: 04/05/2024 [facility] Work Phone: Comment on above: Ordered: 04/05/2024 URINALYSIS, REFLEX MICROSCOPIC URINALYSIS, REFLEX MICROSCOPIC Lab Routine Screening for genitourinary condition Ordered: 05/08/2024 [facility] Work Phone: Comment on above: Ordered: 05/08/2024 End: 04-05-2025 XR Head to Abdomen Views for shunt patency XR SOFT SHOE DANCER SHUNT SERIES 5V SKULL/NECK/CHEST/ABD/CT L ABD Radiology Routine Diverticulum of bladder Bladder stones 1 Occurrences starting 03/06/2024 until 04/05/2025 [facility] Comment on above: 1 Occurrences starting 03/06/2024 until 04/05/2025 [facility] Immunizations Immunization Date Immunization Notes Care Provider Liliya hartman 08-03-2023 influenza, injectabl e, quadrivalent, contains preservative Clifford Estes MD Work Phone: [facility] 08-03-2023 influenza virus vaccine, unspecified formulation Nayely Nazario MD Work Phone: [facility] 07-30-2022 influenza, injectabl e, quadrivalent, contains preservative Clifford Estes MD Work Phone: [facility] 07-30-2022 influenza, injectabl e, quadrivalent, preservative free Dr. Clifford Estes Work Phone: [facility] 07-30-2022 influenza, seasonal, injectable Dr. Clifford Estes Work Phone: [facility] 04-19-2022 Covid (Pfizer) Dr. Clifford conti Work Phone: [facility] 04-19-2022 COVID-19 vaccine, ag e 12+ yr (PFIZER-BIONTBrowserling - [facility]) Katiana Loera LPN Work Phone: [facility] 07-21-2021 influenza, injectabl e, quadrivalent, contains preservative NA Rafita DONOVAN Work Phone: [facility] 05-07-2021 Covid (Moderna) Dr. Clifford Estes Work Phone: [facility] 04-09-2021 Covid (Moderna) Dr. Clifford Estes Work Phone: [facility] 09-11-2020 influenza, injectabl e, quadrivalent, contains preservative NA Rafita DONOVAN Work Phone: [facility] 09-11-2020 influenza, injectabl e, quadrivalent, preservative free Dr. Clifford Estes Work Phone: [facility] 09-11-2020 influenza, seasonal, injectable Dr. Clifford Estes Work Phone: [facility] 07-30-2015 tetanus toxoid, redu yong diphtheria toxoid, and acellular pertussis vaccine, adsorbed NA Rafita DONOVAN Work Phone: [facility] Payers Date Payer Category Payer Medicare [employer] [facility] [id number] 2024-Present [phone] [address] [place] [address] Medicare [id number] 2024 Private Health Insurance [employer] [id number] 2023 Self-pay [id number] 2023 Formerly [facility] [id number] 2019 Medicaid [employer] [facility] [employer] [id number] 2019-Present [phone] [address] [place] [address] Medicaid [id number] 2019 Medicaid [id number] 2019 Medicare (Managed Care) [facility] HMO [id number] 2019 Unknown [employer]THCAROL BLUE CROS S AND BLUE SHIELD ANTH[employer]OL MEDIBLUE O [id number] 2019-Present [phone] [address] [place] [address] [facility] [id number] 2019 Unknown [id number] 2019 Medicare [id number] 2016 Medicare [id number] 1967 Unknown [id number] 356 Unknown [id number] Unknown [id number]. 462 Unknown [id number] [id number]. 462 Unknown [id number] 2..1.382676.3.579.2. 462 Unknown [id number] 2.16.840.1.191810.3.579.2. 462 Unknown [id number] 2.16.840.1.488866.3.579.2. 462 Unknown [id number] 2.16.840.1.997063.3.579.2. 462 Unknown [id number] 2.16.840.1.254088.3.579.2. 462 Unknown [id number] 2.16.840.1.211884.3.579.2. 462 Unknown [id number] 2.16.840.1.985332.3.579.2. 462 Unknown [id number] 2.16.840.1.449757.3.579.2. 462 Unknown [id number] 2.16.840.1.038119.3.579.2. 462 Unknown [id number] 2.16.840.1.661889.3.579.2. 462 Unknown [id number] 2.16.840.1.920172.3.579.2. 462 Unknown [id number] 2.16.840.1.468755.3.579.2. 462 Unknown [id number] 2.16.840.1.636198.3.579.2. 462 Unknown [id number]. 462 Social History Date Type Detail Facility [facility]: [facility] Start: 02-02-2022 End: 07-02-2024 Alcohol intake Current non-drinker of alcohol (finding) [facility] Start: 1965 Sex Assigned At Not on file [facility] Start: 01-23-2022 End: 10-12-2022 Exposure to SARS-CoV-2 (event) Not sure [facility] Start: 02-23-2022 End: 03-05-2022 Exposure to SARS-CoV-2 (event) Unable to assess [facility] Start: 03-07-2022 End: 11-28-2023 Tobacco smoking status NHIS Unknown if ever smoked [facility] Start: 12-31-2020 None [facility] Start: 12-31-2020 With Family [facility] Start: 02-28-2021 Non-smoker [facility] Start: 1965 Sex Assigned At Male [facility] Start: 04-14-2022 History SDOH Financial 5 [facility] Start: 04-14-2022 End: 04-07-2023 History SDOH Food Worry 1 [facility] Start: 04-14-2022 End: 04-07-2023 History SDOH Transport Med 2 [facility] Start: 05-23-2013 Tobacco use and exposure Smokeless tobacco non-user [facility] [facility] Start: 04-14-2023 End: 05-20-2023 History of Social function [facility] Work Phone: Start: 04-14-2023 End: 05-20-2023 Tobacco use panel [facility] Work Phone: Start: 10-15-2012 Adult Depression Screening Assessment 0 [facility] Work Phone: (I/We) worried wheth er (my/our) food would run out before (I/we) got money to buy more. Never true [facility] In the past 12 month s, was there a time when you were not able to pay the mortgage or rent on time? No [facility] Work Phone: Goals Date Patient Goal Desired Activity /State Functional Status Date Assessment Result Facility 06-12-2024 Are you deaf, or do you have serious difficulty hearing No 06/12/2024 2:31 PM Arian Robbins, RN No [facility] 06-12-2024 Are you blind, or do you have serious difficulty seeing, even when wearing glasses No 06/12/2024 2:31 PM Arian Robbins, RN No [facility] 06-12-2024 Do you have serious difficulty walking or climbing stairs Yes 06/12/2024 2:31 PM Arian Robbins, RN Yes [facility] 06-12-2024 Do you have difficul ty dressing or bathing Yes 06/12/2024 2:31 PM Arian Robbins RN Yes [facility] 06-12-2024 Because of a physica l, mental, or emotional condition, do you have difficulty doing errands alone such as visiting a physician's office or shopping Yes 06/12/2024 2:31 PM Arian Robbins RN Yes [facility] 09-22-2023 [facility] Work Phone: 08-15-2023 Functional status Bedrest [facility] Work Phone: 05-16-2023 Functional status Bedrest [facility] Work Phone: 04-03-2023 Functional status Bedrest [facility] Work Phone: 02-24-2023 Functional status Activity Ability Bedres t [facility] Work Phone: 02-23-2023 Functional status Bedrest [facility] Work Phone: 09-23-2022 Functional status Bedrest [facility] Work Phone: 09-12-2022 Functional status Chair [facility] Work Phone: 08-14-2022 Functional status Bedrest [facility] Work Phone: 08-13-2022 Functional status Activity Abili ty With Assist of 2 [facility] Work Phone: 08-13-2022 Functional status Bedrest [facility] Work Phone: 07-25-2022 Functional status Bedrest [facility] Work Phone: 01-24-2022 Functional status [facility] Work Phone: Mental Status Date Assessment Result Facility 06-12-2024 Because of a physica l, mental, or emotional condition, do you have serious difficulty concentrating, remembering, or making decisions Yes 06/12/2024 2:31 PM Arian Robbins NEIL Yes [facility] 09-22-2023 [facility]: 08-15-2023 [facility]: 05-16-2023 [facility] Work Phone: 04-02-2023 [facility] Work Phone: 02-24-2023 [facility] function [facility] Work Phone: 09-23-2022 Cognitive function Voice/Name [facility] Work Phone: 09-12-2022 Cognitive function Appropriate;Cooperativ e [facility] Work Phone: 08-14-2022 Cognitive function Voice/Name [facility] Work Phone: 08-13-2022 Cognitive function Voice/Name [facility] Work Phone: 08-10-2022 Cognitive function Level Of Cons ciousness Awake;Alert;Appropriate [facility] Work Phone: 07-25-2022 Cognitive function Voice/Name [facility] Work Phone: 07-21-2022 Cognitive function Level Of Cons ciousness Awake;Alert;Appropriate;Fol lows Commands [facility] Work Phone: 01-24-2022 Cognitive function Voice/Name [facility] Work Phone: Clinical Notes 02-02-2008 to 08-30-2025 Telephone Encounter - Daniella Garrett RN - 07/24/2025 9:33 AM EDTTelephone Encounter - Daniella Garrett RN - 07/24/2025 9:33 AM EDTHH SN Routine - Daniella Garrett RN - 07/24/2025 9:01 AM EDTPatient Instructions Note Date & Type Note Facility 08-30-2025 Note HNO ID: [id number] Author: NIDIA HIGGINBOTHAM MA Service: ? Author Type: Occupational Ther Type: Progress Notes Filed: 08/30/2025 16:29 Note Text: Ambulatory Ear Lavage Pre-treatment: Warm water Treatment: Both ears Equipment and Irrigation solution and Volume used: Single use syringe with single use irrigation tip Water Return flow appearance: Brown Yellow Patient tolerated procedure: yes Tympanic membrane assessment: Tympanic membrane assessed by LIP pre and post procedure [facility] [place] 08-30-2025 Note HNO ID: [id number] Author: KYLEIGH CASAS APRN.CNP Service: ? Author Type: Nurse Practitioner Type: Progress Notes Filed: 08/30/2025 16:16 Note Text: Chief Reason For Appointment Patient presents with: Yearly Exam Jian Altamirano is a 59 year old male who presents for annual exam. Last office visit date: 06/25/2024 Accompanied By spouse, Darrion, sister Have you had any critical events, hospital stays, ER visits, surgeries or procedures since your last visit here in our office: No Specialists/Other Healthcare Providers Seen: Patient Care Team: Clifford Estes MD as PCP - General (Family Medicine) Clifford Estes MD as Referring (Family Medicine) Clifford Estes MD as Home Care Provider (Family Medicine) Wero Uribe RN as Balancer (Post Acute Care) Yvette Gao APRN.[employer] HAND FINISHER as Instructor Dancing (Family Medicine) Kyleigh Casas APRN.CNP as Instructor Dancing (Family Medicine) Concerns today: Fungal rashes and sinus drainage HPI The patient is a 59-year-old male with chronic sinusitis, presenting for evaluation of persistent sinus congestion and nocturnal cough. Accompanied by his sister, who is providing history on his behalf. Jian Altamirano is a 59-year-old male with a history of chronic sinusitis, neurogenic bladder, and bowel obstructions, accompanied by his sister, who is providing history on his behalf, presenting for evaluation of chronic sinusitis and skin rash. Chronic Sinusitis: - Chronic sinusitis with nocturnal cough. - Sister reports "horrible wax problem" in ears. - Denies SOB, wheezing, or chest pain. Skin Rash: - Dry, flaky skin on scalp. - Occasional erythema in axillary regions, managed with Betadine pads. Neurogenic Bladder: - Managed with twice-monthly catheter changes by home health nurse. - Daily bladder irrigation performed by sister. - History of bladder stones; reports strong-smelling urine. Bowel Obstructions: - History of SBOs and ileus. - Managed by motility specialist at [facility]. - Currently taking Motegrity with good results. - Denies recent nausea or emesis. Mobility: - Ambulates with assistance using Serbian crutches. - Unable to obtain accurate weight due to mobility limitations. Immunizations: - Interested in receiving flu and COVID vaccines today. 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 ROS: Constitutional: (-) weight loss, (-) weight gain Head: (-) headache Ears/Nose/Mouth/Throat: (+) ear fullness Neck: (-) neck swelling Cardiovascular: (+) palpitations, (-) chest pain, (-) peripheral edema, (-) orthopnea Respiratory: (+) cough Gastrointestinal: (-) nausea, (-) vomiting Musculoskeletal: (-) joint pain, (-) joint swelling Skin: (+) dry skin, (+) axillary rash Neurological: (-) seizures, (-) stroke symptoms, (-) tremor Psychiatric: (-) depressed mood, (-) anhedonia, (-) anxiety, (-) suicidal ideation PAST MEDICAL HISTORY Diagnosis Date Bladder stones 04/12/2024 Bowel dysfunction Constipation Hydrocephalus (HCC) Inguinal hernia left - imaging at [place] Sleep apnea Spina bifida (HCC) Urinary retention PAST SURGICAL HISTORY Procedure Laterality Date CRTJ SHUNT [id number] TERMINUS EGD W/O BRSH SPEC VARICIES INJ 08/06/2021 PAST SURGICAL HISTORY OF repair of hamstring PAST SURGICAL HISTORY OF abdominal surgery in childhood Medication List Current Outpatient Medications Medication Sig Dispense Refill baclofen 5 mg tablet Take 1 tablet by mouth three times a day. 270 each 3 metoclopramide HCl (REGLAN) 5 mg tablet Take 1 po up to tid prn constipation 10 tablet 2 linaCLOtide (LINZESS) 290 mcg capsule Take 1 po qd 90 capsule 2 trospium (SANCTURA) 20 mg tablet Take 1 tablet by mouth two times a day as needed (bladder spasm or urine leaking around catheter). 21 tablet 0 polyethylene glycol 3350 (MIRALAX) 17 gram packet Take 1 Packet by mouth once daily as needed for constipation. Dissolve dose in 4 - 8 ounces of liquid and take as directed. bisacodyl (DULCOLAX) 10 mg supp Bisacodyl Active 10 MG rectally daily NEEDED for constipation prucalopride 2 mg tablet (MOTEGRITY) Take 1 tablet by mouth once daily. 30 tablet 3 omeprazole (PRILOSEC (more content not included)... [facility] 07-24-2025 Telephone encounter Note Good morning, I wanted to update you on hannon management. Sister has had to change the catheter 3 times in the past month. She tried the vinegar irrigation but pt had a lot of cramping and discomfort with it. She is still irrigating daily with the distilled water. The blockage happens suddenly and she is not able to irrigate. Do you have any other suggestions? . [facility] Work Phone: 07-24-2025 Miscellaneous Notes Good morning, I wanted to update you on hannon management. Sister has had to change the catheter 3 times in the past month. She tried the vinegar irrigation but pt had a lot of cramping and discomfort with it. She is still irrigating daily with the distilled water. The blockage happens suddenly and she is not able to irrigate. Do you have any other suggestions? . documented in this encounter [facility] 07-24-2025 Miscellaneous Notes SITUATION: Long-Term routine visit completed today. sister also present during today's visit. patient reports the following: Allergies--reviewed Medications--reviewed current medications Falls--None BACKGROUND: Reason for Home Care: hannon cath management ASSESSMENT: SN greeted at door by caregiver. Upon entrance patient found in bed Patient appears in no acute distress. Patient/CG concerns verbalized today: sister verbalizes that catheter plugged again on 07/17 and she had to change it. she states that pt was irrigated with saline twice that day and the second time she attempted to flush on 07/17, she was not able to. Vitals (see flow sheet for details): stable SN findings today: Pt laying in bed. See above pt report. Hannon is draining light yellow urine freely, a small amount of mucus is noted. family is irrigating with distilled water every day. It was previously noted that pt had cramping with the vinegar irrigation so cg has not been doing this. See intervention summary for education details. Patient demonstrated a need for further skilled SN services for urinary catheter care. Current Discharge plan: recertification RECOMMENDATION: Next visit to focus on (be specific): hannon cath change. documented in this encounter [facility] 07-24-2025 Patient's home Note SITUATION: Long-Term routine visit completed today. sister also present during today's visit. patient reports the following: Allergies--reviewed Medications--reviewed current medications Falls--None BACKGROUND: Reason for Home Care: hannon cath management ASSESSMENT: SN greeted at door by caregiver. Upon entrance patient found in bed Patient appears in no acute distress. Patient/CG concerns verbalized today: sister verbalizes that catheter plugged again on 07/17 and she had to change it. she states that pt was irrigated with saline twice that day and the second time she attempted to flush on 07/17, she was not able to. Vitals (see flow sheet for details): stable SN findings today: Pt laying in bed. See above pt report. Hannon is draining light yellow urine freely, a small amount of mucus is noted. family is irrigating with distilled water every day. It was previously noted that pt had cramping with the vinegar irrigation so cg has not been doing this. See intervention summary for education details. Patient demonstrated a need for further skilled SN services for urinary catheter care. Current Discharge plan: recertification RECOMMENDATION: Next visit to focus on (be specific): hannon cath change. [facility] Work Phone: 07-10-2025 Miscellaneous Notes SITUATION: Long-Term routine visit completed today. sister also present during today's visit. patient reports the following: Allergies--reviewed Medications--reviewed current medications Falls--None BACKGROUND: Reason for Home Care: hannon catheter management ASSESSMENT: SN greeted at door by caregiver. Upon entrance patient found in bed Patient appears in no acute distress. Patient/CG concerns verbalized today: pt/cg verbalize that the catheter needed to be changed on 07/08 because it plugged again. Sister feels that his kidney stones have been breaking up and this is what is causing the frequent catheter issues. Vitals (see flow sheet for details): stable SN findings today: Pt laying in bed getting bathed by sister. See intervention summary for education details. Patient demonstrated a need for further skilled SN services for urinary catheter care. Current Discharge plan: recertification RECOMMENDATION: Next visit to focus on (be specific): Hannon cath change, how has catheter been draining? documented in this encounter [facility] 07-10-2025 Patient's home Note SITUATION: Long-Term routine visit completed today. sister also present during today's visit. patient reports the following: Allergies--reviewed Medications--reviewed current medications Falls--None BACKGROUND: Reason for Home Care: hannon catheter management ASSESSMENT: SN greeted at door by caregiver. Upon entrance patient found in bed Patient appears in no acute distress. Patient/CG concerns verbalized today: pt/cg verbalize that the catheter needed to be changed on 07/08 because it plugged again. Sister feels that his kidney stones have been breaking up and this is what is causing the frequent catheter issues. Vitals (see flow sheet for details): stable SN findings today: Pt laying in bed getting bathed by sister. See intervention summary for education details. Patient demonstrated a need for further skilled SN services for urinary catheter care. Current Discharge plan: recertification RECOMMENDATION: Next visit to focus on (be specific): Hannon cath change, how has catheter been draining? [facility] Work Phone: 07-03-2025 Telephone encounter Note Left voicemail with Daniella Hima home care nurse, and relayed per Brea Florentino MD's verbal order it is ok to change pt catheter every two weeks. hKai Arriaga RN ----- Message from Brea Florentino MD sent at 07/03/2025 10:46 AM EDT ----- Regarding: RE: Catheter How do I give them a verbal ordeR? ----- Message ----- From: Miroslava Adame Sent: 07/03/2025 9:38 AM EDT To: Brea Florentino MD Subject: Catheter Daniella [facility] Home Health Nurse [phone] [facility] Home Health nurse would like verbal approval to change his catheter every two weeks - the irrigating did not go well lots of cramping and it still clogged. [facility] 07-03-2025 Miscellaneous Notes Left voicemail with Daniella DE LEON home care nurse, and relayed per Brea Florentino MD's verbal order it is ok to change pt catheter every two weeks. Khai Arriaga RN ----- Message from Brea Florentino MD sent at 07/03/2025 10:46 AM EDT ----- Regarding: RE: Catheter How do I give them a verbal ordeR? ----- Message ----- From: Miroslava Adame Sent: 07/03/2025 9:38 AM EDT To: Brea Florentino MD Subject: Catheter Daniella [facility] Home Health Nurse [phone] [facility] Home Health nurse would like verbal approval to change his catheter every two weeks - the irrigating did not go well lots of cramping and it still clogged. documented in this encounter [facility] 07-03-2025 Telephone encounter Note Noted. Thank you [facility] 07-03-2025 Miscellaneous Notes Noted. Thank you Good morning, FYI: sister reported that pt fell out of his w/c on 06/23/25 am while getting dressed. He leaned too far forward and fell forward, did strike his head on the floor and suffered a small laceration which family treated with first aid, he did not have any LOC and no change in mental status. documented in this encounter [facility] 07-03-2025 Telephone encounter Note Good , FYI: sister reported that pt fell out of his w/c on 06/23/25 am while getting dressed. He leaned too far forward and fell forward, did strike his head on the floor and suffered a small laceration which family treated with first aid, he did not have any LOC and no change in mental status. [facility] Work Phone: 07-03-2025 Miscellaneous Notes SITUATION: Long-Term routine visit completed today. sister also present during today's visit. patient reports the following: Allergies--reviewed Medications--reviewed current medications Falls--None BACKGROUND: Reason for Home Care: hannon catheter management ASSESSMENT: SN greeted at door by caregiver. Upon entrance patient found in bed Patient appears in no acute distress. Patient/CG concerns verbalized today: sister verbalizes that the catheter is still having issues with plugging despite the vineger solution irrigations, sister states that the vinegar irrigation caused alot of cramping and pt discomfort. Vitals (see flow sheet for details): stable SN findings today: Pt laying in bed, sister states that she had to change the catheter on 06/29 because if plugged. She states that she tried the vinegar solution irrigation and it caused pt to have cramps even after the irrigation was done. SN contacted Dr Florentino's office of urology and requested orders to change catheter every 2 weeks and go back to distilled water irrigations daily. Pt reports that his bowels have been moving well the last few days. Abdomen is soft with active bowel sounds. Pt has a scab on his scalp from the fll he had on 06/23. Pt denies any ongoing effects. See intervention summary for education details. Patient demonstrated a need for further skilled SN services for urinary catheter care. Current Discharge plan: recertification RECOMMENDATION: Next visit to focus on (be specific): ?new orders for increased catheter change frequency, how has catheter been functioning, ?catheter change? documented in this encounter [facility] 07-03-2025 Patient's home Note SITUATION: Long-Term routine visit completed today. sister also present during today's visit. patient reports the following: Allergies--reviewed Medications--reviewed current medications Falls--None BACKGROUND: Reason for Home Care: hannon catheter management ASSESSMENT: SN greeted at door by caregiver. Upon entrance patient found in bed Patient appears in no acute distress. Patient/CG concerns verbalized today: sister verbalizes that the catheter is still having issues with plugging despite the vineger solution irrigations, sister states that the vinegar irrigation caused alot of cramping and pt discomfort. Vitals (see flow sheet for details): stable SN findings today: Pt laying in bed, sister states that she had to change the catheter on 06/29 because if plugged. She states that she tried the vinegar solution irrigation and it caused pt to have cramps even after the irrigation was done. SN contacted Dr Florentino's office of urology and requested orders to change catheter every 2 weeks and go back to distilled water irrigations daily. Pt reports that his bowels have been moving well the last few days. Abdomen is soft with active bowel sounds. Pt has a scab on his scalp from the fll he had on 06/23. Pt denies any ongoing effects. See intervention summary for education details. Patient demonstrated a need for further skilled SN services for urinary catheter care. Current Discharge plan: recertification RECOMMENDATION: Next visit to focus on (be specific): ?new orders for increased catheter change frequency, how has catheter been functioning, ?catheter change? [facility] Work Phone: 06-10-2025 Miscellaneous Notes SITUATION: Long-Term Recert visit completed today. sister also present during today's visit. patient reports the following: Allergies--reviewed Medications--reviewed current medications Falls--None Advance Directives: Patient does have advance directives. BACKGROUND: Reason for Home Care: hannon cath management ASSESSMENT: SN greeted at door by caregiver. Upon entrance patient found in bed Patient appears in no acute distress. Patient lives at home with sister. Home environment: dirty and cluttered. Patient/CG concerns verbalized today: cg verbalizes that pt saw urologist last week and has been instructed to irrigate pt's catheter with a weak vinegar solution intermittently due he is building up sediment which is contributing to his catheter plugging. Vitals (see flow sheet for details): stable SN findings today: Pt laying in bed. He states that he has been having difficulty with his bowels lately but did have a large BM yesterday. BP slightly elevated today as a result of this. Hannon cath is draining light yellow urine which is clear in the drainage bag but does have some sediment/haziness in drainage tubing. SN reviewed irrigation orders and sister states that she wa snot told how often to use the vinegar precisely (urologist said Every once in a while") Sister plans to do it today and then weekly. She will continue to irrigate with distilled water daily. Pt denies pain today. See intervention summary for education details and skills performed. Visit frequency, plan of care, and goals & dates reviewed and updated with patient and caregiver and plan of care agreed upon. Home care book updated. Patient demonstrated a need for further skilled SN services for urinary catheter care RECOMMENDATION: Visit Frequency: 1 mo 2 Need for additional services: Patient agreeable to N/A referrals. Patient declined N/A referrals. Additional concerns to be followed up on: NONE Next visit to focus on (be specific): assess hannon catheter for patency, function. Hannon cath change. documented in this encounter [facility] 06-10-2025 Patient's home Note SITUATION: Long-Term Recert visit completed today. sister also present during today's visit. patient reports the following: Allergies--reviewed Medications--reviewed current medications Falls--None Advance Directives: Patient does have advance directives. BACKGROUND: Reason for Home Care: hannon cath management ASSESSMENT: SN greeted at door by caregiver. Upon entrance patient found in bed Patient appears in no acute distress. Patient lives at home with sister. Home environment: dirty and cluttered. Patient/CG concerns verbalized today: cg verbalizes that pt saw urologist last week and has been instructed to irrigate pt's catheter with a weak vinegar solution intermittently due he is building up sediment which is contributing to his catheter plugging. Vitals (see flow sheet for details): stable SN findings today: Pt laying in bed. He states that he has been having difficulty with his bowels lately but did have a large BM yesterday. BP slightly elevated today as a result of this. Hannon cath is draining light yellow urine which is clear in the drainage bag but does have some sediment/haziness in drainage tubing. SN reviewed irrigation orders and sister states that she wa snot told how often to use the vinegar precisely (urologist said Every once in a while") Sister plans to do it today and then weekly. She will continue to irrigate with distilled water daily. Pt denies pain today. See intervention summary for education details and skills performed. Visit frequency, plan of care, and goals & dates reviewed and updated with patient and caregiver and plan of care agreed upon. Home care book updated. Patient demonstrated a need for further skilled SN services for urinary catheter care RECOMMENDATION: Visit Frequency: 1 mo 2 Need for additional services: Patient agreeable to N/A referrals. Patient declined N/A referrals. Additional concerns to be followed up on: NONE Next visit to focus on (be specific): assess hannon catheter for patency, function. Hannon cath change. [facility] Work Phone: 06-07-2025 Instructions Brea Florentino MD - 06/07/2025 9:54 AM EDT Instill 30-50mls of dilute vinegar into your bladder and cap the tube for 10-20 minutes. Then irrigate Amount of 5% White Vinegar Solution to Mix In: If Your Normal Bladder Irrigation Amount Is: 0.5 teaspoon 50 mL 1 teaspoon (5 ml) 100 mL 2.5 teaspoons (12.5 mL) 250 mL irrigation 5 teaspoons (25 mL) 500 mL irrigation 10 teaspoons (50 mL) 1000 mL irrigation About 6 ounces 1 gallon irrigation documented in this encounter [facility] 06-07-2025 Note HNO ID: [id number] Author: BREA FLORENTINO MD Service: ? 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 Normal right kidney. 2. The left kidney contains an 8 mm calculus at its midportion and a 3 cm exophytic cyst posteriorly PAST MEDICAL HISTORY Diagnosis Date Bladder stones 04/12/2024 Bowel dysfunction Constipation Hydrocephalus (HCC) Inguinal hernia left - imaging at [place] Sleep apnea Spina bifida (HCC) Urinary retention PAST SURGICAL HISTORY Procedure Laterality Date CRTJ SHUNT [id number] TERMINUS EGD W/O [facility]SH SPEC VARICIES INJ 08/06/2021 PAST SURGICAL HISTORY OF repair of hamstring PAST SURGICAL HISTORY OF abdominal surgery in childhood Social History Tobacco Use Smoking status: Never Smokeless tobacco: Never Substance Use Topics Alcohol use: No Drug use: No Current Outpatient Medications Medication Sig Dispense Refill metoclopramide HCl (REGLAN) 5 mg tablet Take 1 po up to tid prn constipation 10 tablet 2 prucalopride 2 mg tablet (MOTEGRITY) Take 1 tablet by mouth once daily. 30 tablet 2 linaCLOtide (LINZESS) 290 mcg capsule Take 1 po qd 90 capsule 2 baclofen 5 mg tablet Take 1 tablet by mouth three times a day. 270 Each 3 trospium (SANCTURA) 20 mg tablet Take 1 tablet by mouth two times a day as needed (bladder spasm or urine leaking around catheter). 21 tablet 0 polyethylene glycol 3350 (MIRALAX) 17 gram packet Take 1 Packet by mouth once daily as needed for constipation. Dissolve dose in 4 - 8 ounces of liquid and take as directed. bisacodyl (DULCOLAX) 10 mg supp Bisacodyl Active 10 MG rectally daily NEEDED for constipation omeprazole (PRILOSEC) 20 mg capsule Take 1 capsule by mouth daily before breakfast. 1/2 hr before meal. (Patient not taking: Reported on 04/05/2024) 30 capsule 5 No current facility-administered medications for this visit. ROS: Constitutional: negative Gastrointestinal: negative PHYSICAL EXAM: BP 144/94 (BP Site: Left Arm, BP Position: Sitting, BP Cuff Size: Regular Adult) Pulse 81 GENERAL: Wnl nutrition, no deformities, healthy appearing ABDOMEN: Soft, nontender, nondistended, no masses. 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 w spina bifida, shunted hydrocephalus, NGB/B Large bladder stone in R posterior tic + bl bladder containing hernias with stone on left, stone within bladder lumen Now sp open cystolithotomy and bladder diverticulectomy 04/12/24 RBUS, Cr, cystatin C all normal Doing well More clogging that normal Rec vinegar instillations Rbus, bmp and cystatin and vv in 1 year Brea Florentino MD [facility] [place] 06-07-2025 History of Present illness Narrative HPI: 59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 Normal right kidney. 2. The left kidney contains an 8 mm calculus at its midportion and a 3 cm exophytic cyst posteriorly PAST MEDICAL HISTORY Diagnosis Date Bladder stones 04/12/2024 Bowel dysfunction Constipation Hydrocephalus (HCC) Inguinal hernia left - imaging at [place] Sleep apnea Spina bifida (HCC) Urinary retention PAST SURGICAL HISTORY Procedure Laterality Date CRTJ SHUNT [id number] [facility]/06/[facility]21 PAST SURGICAL HISTORY OF repair of hamstring PAST SURGICAL HISTORY OF abdominal surgery in childhood Social History Tobacco Use Smoking status: Never Smokeless tobacco: Never Substance Use Topics Alcohol use: No Drug use: No Current Outpatient Medications Medication Sig Dispense Refill metoclopramide HCl (REGLAN) 5 mg tablet Take 1 po up to tid prn constipation 10 tablet 2 prucalopride 2 mg tablet (MOTEGRITY) Take 1 tablet by mouth once daily. 30 tablet 2 linaCLOtide (LINZESS) 290 mcg capsule Take 1 po qd 90 capsule 2 baclofen 5 mg tablet Take 1 tablet by mouth three times a day. 270 Each 3 trospium (SANCTURA) 20 mg tablet Take 1 tablet by mouth two times a day as needed (bladder spasm or urine leaking around catheter). 21 tablet 0 polyethylene glycol 3350 (MIRALAX) 17 gram packet Take 1 Packet by mouth once daily as needed for constipation. Dissolve dose in 4 - 8 ounces of liquid and take as directed. bisacodyl (DULCOLAX) 10 mg supp Bisacodyl Active 10 MG rectally daily NEEDED for constipation omeprazole (PRILOSEC) 20 mg capsule Take 1 capsule by mouth daily before breakfast. 1/2 hr before meal. (Patient not taking: Reported on 04/05/2024) 30 capsule 5 No current facility-administered medications for this visit. ROS: Constitutional: negative Gastrointestinal: negative PHYSICAL EXAM: BP 144/94 (BP Site: Left Arm, BP Position: Sitting, BP Cuff Size: Regular Adult) Pulse 81 GENERAL: Wnl nutrition, no deformities, healthy appearing ABDOMEN: Soft, nontender, nondistended, no masses. 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 w spina bifida, shunted hydrocephalus, NGB/B Large bladder stone in R posterior tic + bl bladder containing hernias with stone on left, stone within bladder lumen Now sp open cystolithotomy and bladder diverticulectomy 04/12/24 RBUS, Cr, cystatin C all normal Doing well More clogging that normal Rec vinegar instillations Rbus, bmp and cystatin and vv in 1 year Brea Florentino MD documented in this encounter [facility] 06-07-2025 Note Patient Outreach (UR OLMN) JIAN ALTAMIRANO ([id number]) 1965 M Date Time Provider Department 06/07/25 BREA FLORENTINO URON During your visit today, we recorded the following information about you: Allergies As of Date: 06/07/2025 Noted Allergy Reaction CONTRAST DYE 10/29/2010 10 - Anaphylaxis FD AND C BLUE NO.1 07/29/2006 IODINATED CONTRAST MEDIA 12/11/2020 10 - Anaphylaxis MACRODANTIN (NITROFURANTOIN MACRO*10/29/2010 8 - GI Upset NITROFURANTOIN 12/11/2020 8 - GI Upset PHENYTOIN 07/29/2006 Date Reviewed: 06/07/2025 Reviewed by: Roslyn Celestin MA - Fully Assessed Visit Diagnosis:Screening for genitourinary condition [Z13.89] Order(s):UA DIP, URINE (POC) [5660380] Order #: [id number] FUTURE Prescriptions as of 06/10/2025 - metoclopramide HCl (REGLAN) 5 mg tablet Take 1 po up to tid prn constipation - prucalopride 2 mg tablet (MOTEGRITY) Take 1 tablet by mouth once daily. - linaCLOtide (LINZESS) 290 mcg capsule Take 1 po qd - baclofen 5 mg tablet Take 1 tablet by mouth three times a day. - trospium (SANCTURA) 20 mg tablet Take 1 tablet by mouth two times a day as needed (bladder spasm or urine leaking around catheter). - polyethylene glycol 3350 (MIRALAX) 17 gram packet Take 1 Packet by mouth once daily as needed for constipation. Dissolve dose in 4 - 8 ounces of liquid and take as directed. - omeprazole (PRILOSEC) 20 mg capsule Take 1 capsule by mouth daily before breakfast. 1/2 hr before meal. - bisacodyl (DULCOLAX) 10 mg supp Bisacodyl Active 10 MG rectally daily NEEDED for constipation Meds Comments as of 11/01/2020: 11/01/2020 Pt's sister stating pt not taking Cipro at this time, completed course of atb. 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 Stefany Grijalva [facility] Work Phone: 06-03-2025 Miscellaneous Notes Patient phones requesting refills as follows: Requested Prescriptions Pending Prescriptions Disp Refills metoclopramide HCl (REGLAN) 5 mg tablet 10 tablet 2 Sig: Take 1 po up to tid prn constipation Please review and advise. Stefany Grijalva documented in this encounter [facility] 05-14-2025 Miscellaneous Notes respirationsPatient phones requesting refills as follows: Requested Prescriptions Pending Prescriptions Disp Refills prucalopride 2 mg tablet (MOTEGRITY) 30 tablet 2 Sig: Take 1 tablet by mouth once daily. Please review and advise. Stefany Grijalva documented in this encounter [facility] 05-14-2025 Telephone encounter Note respirationsPatient phones requesting refills as follows: Requested Prescriptions Pending Prescriptions Disp Refills prucalopride 2 mg tablet (MOTEGRITY) 30 tablet 2 Sig: Take 1 tablet by mouth once daily. Please review and advise. Stefany Grijalva [facility] Work Phone: 05-13-2025 Telephone encounter Note Patient phones requesting refills as follows: Requested Prescriptions Pending Prescriptions Disp Refills linaCLOtide (LINZESS) 290 mcg capsule 90 capsule 2 Sig: Take 1 po qd Please review and advise. Stefany Grijalva [facility] Work Phone: 05-13-2025 Miscellaneous Notes Patient phones requesting refills as follows: Requested Prescriptions Pending Prescriptions Disp Refills linaCLOtide (LINZESS) 290 mcg capsule 90 capsule 2 Sig: Take 1 po qd Please review and advise. Stefany Grijalva documented in this encounter [facility] 05-10-2025 Miscellaneous Notes SITUATION: Long-Term routine visit completed today. sister also present during today's visit. patient reports the following: Allergies--reviewed Medications--reviewed current medications Falls--None BACKGROUND: Reason for Home Care: hannon cath management ASSESSMENT: SN greeted at door by caregiver. Upon entrance patient found in bed Patient appears in no acute distress. Patient/CG concerns verbalized today: no special concerns today. Pt was trreated with kelflex after urine was obtained and cg states that the catheter has been working better. Vitals (see flow sheet for details): stable SN findings today: Pt laying in bed. Cg reports that catheter has been functioning well since las SN vs. SN removed hannon cath without difficulty. new hannon inserted without issue and hannon is draining light yellow, slightly hazy urine in good amounts. See intervention summary for education details. Patient demonstrated a need for further skilled SN services for urinary catheter care. Current Discharge plan: recertification RECOMMENDATION: Next visit to focus on (be specific): hannon cath change, recert. documented in this encounter [facility] 05-10-2025 Patient's home Note SITUATION: Long-Term routine visit completed today. sister also present during today's visit. patient reports the following: Allergies--reviewed Medications--reviewed current medications Falls--None BACKGROUND: Reason for Home Care: hannon cath management ASSESSMENT: SN greeted at door by caregiver. Upon entrance patient found in bed Patient appears in no acute distress. Patient/CG concerns verbalized today: no special concerns today. Pt was trreated with kelflex after urine was obtained and cg states that the catheter has been working better. Vitals (see flow sheet for details): stable SN findings today: Pt laying in bed. Cg reports that catheter has been functioning well since las SN vs. SN removed hannon cath without difficulty. new hannon inserted without issue and hannon is draining light yellow, slightly hazy urine in good amounts. See intervention summary for education details. Patient demonstrated a need for further skilled SN services for urinary catheter care. Current Discharge plan: recertification RECOMMENDATION: Next visit to focus on (be specific): hannon cath change, recert. [facility] Work Phone: 05-08-2025 History of Present illness Narrative Radiology Service Progress Note PATIENT NAME: Jian Altamirano DATE OF SERVICE: May 08, 2025 TIME: 11:06 AM PATIENT IDENTITY VERIFICATION COMPLETED USING TWO (2) IDENTIFIERS: Name and Date of confirmed by patient verbally. FALL SCREENING: Has the patient had 2 falls in the last year or 1 fall with injury or currently using an Ambulatory Assistive Device (Walker, Cane, Wheelchair, Crutches, etc.)? Yes, Patient High Risk for Falls What interventions were put in place to prevent falls during this visit? Offered Assistance with Transfers/Clothing and Increased Observations by Caregivers PATIENT GENDER DATA: Assigned male at PATIENT RELEVANT IMPLANT DATA REVIEWED: Not Applicable PATIENT PRESENTS WITH AN IMPLANTABLE OR ATTACHED SUPERVISOR RESPIRATORY: No RADIOLOGY DEPARTMENT: Ultrasound PERIPHERAL IV DATA: Not applicable SIGNED BY: Nely Velazquez RDMS May 08, 2025 11:06 AM documented in this encounter [facility] 05-08-2025 Note HNO ID: [id number] Author: NELY VELAZQUEZ RDMS Service: ? Author Type: Key Carrier Type: Progress Notes Filed: 05/08/2025 11:06 Note Text: Radiology Service Progress Note PATIENT NAME: Jian Altamirano DATE OF SERVICE: May 08, 2025 TIME: 11:06 AM PATIENT IDENTITY VERIFICATION COMPLETED USING TWO (2) IDENTIFIERS: Name and Date of confirmed by patient verbally. FALL SCREENING: Has the patient had 2 falls in the last year or 1 fall with injury or currently using an Ambulatory Assistive Device (Walker, Cane, Wheelchair, Crutches, etc.)? Yes, Patient High Risk for Falls What interventions were put in place to prevent falls during this visit? Offered Assistance with Transfers/Clothing and Increased Observations by Caregivers PATIENT GENDER DATA: Assigned male at PATIENT RELEVANT IMPLANT DATA REVIEWED: Not Applicable PATIENT PRESENTS WITH AN IMPLANTABLE OR ATTACHED SUPERVISOR RESPIRATORY: No RADIOLOGY DEPARTMENT: Ultrasound PERIPHERAL IV DATA: Not applicable SIGNED BY: Nely Velazquez RDMS May 08, 2025 11:06 AM [facility] [place] 04-29-2025 Telephone encounter Note Notified Darrion. [facility] 04-29-2025 Miscellaneous Notes Notified Darrion. documented in this encounter [facility] 04-25-2025 Miscellaneous Notes SITUATION: Long-Term PRN visit completed today. sister also present during today's visit. patient reports the following: Allergies--reviewed Medications--reviewed current medications Falls--None BACKGROUND: Reason for Home Care: hannon catheter management Reason for PRN Visit: obtain urine specimen to due recent issues with hannon blockages despite daily irrigations ASSESSMENT: SN greeted at door by caregiver. Upon entrance patient found in bed Patient appears in no acute distress. Patient/CG concerns verbalized today: no new concerns Vitals (see flow sheet for details): stable SN findings today: Pt laying in bed, cg in process of doing his daily bowel routine. SN obtained urine specimen from port of hannon catheter. Urine is hazy and cloudy, light yellow in color. Pt denies feeling ill, vitals remain stable. See intervention summary for education details and skills performed. RECOMMENDATION: Next visit to focus on (be specific): assess urineary cath function, follow up on UA results. documented in this encounter [facility] 04-25-2025 Patient's home Note SITUATION: Long-Term PRN visit completed today. sister also present during today's visit. patient reports the following: Allergies--reviewed Medications--reviewed current medications Falls--None BACKGROUND: Reason for Home Care: hannon catheter management Reason for PRN Visit: obtain urine specimen to due recent issues with hannon blockages despite daily irrigations ASSESSMENT: SN greeted at door by caregiver. Upon entrance patient found in bed Patient appears in no acute distress. Patient/CG concerns verbalized today: no new concerns Vitals (see flow sheet for details): stable SN findings today: Pt laying in bed, cg in process of doing his daily bowel routine. SN obtained urine specimen from port of hannon catheter. Urine is hazy and cloudy, light yellow in color. Pt denies feeling ill, vitals remain stable. See intervention summary for education details and skills performed. RECOMMENDATION: Next visit to focus on (be specific): assess urineary cath function, follow up on UA results. [facility] Work Phone: 04-24-2025 Miscellaneous Notes SITUATION: Long-Term routine visit completed today. sister also present during today's visit. patient reports the following: Allergies--reviewed Medications--reviewed current medications Falls--None BACKGROUND: Reason for Home Care: hannon catheter management ASSESSMENT: SN greeted at door by caregiver. Upon entrance patient found in bed Patient appears in no acute distress. Patient/CG concerns verbalized today: cg verbalizes that she had a problem with the catheter 2 days ago and the catheter was plugged, pt in a great deal of pain and cg states sheyla she went ahead and changed the catheter rather than have pt wait for EMS transport. This happened at about midnight. Vitals (see flow sheet for details): stable SN findings today: Pt laying in bed. See above cg report. SN notes that urine is hazy light yellow, it is draining freely at this time. No odor is noted and pt reports that he is feeling "normal". Cg reports that his bowels have been moving with stimulation and does not seem to be an issue lately when his catheter becomes plugged. She has been doing the irrigations daily and this has not made a big difference this past 2 weeks. See intervention summary for education details. Patient demonstrated a need for further skilled SN services for urinary catheter care. Current Discharge plan: recertification RECOMMENDATION: Next visit to focus on (be specific): ? prn vs for UA, C&S documented in this encounter [facility] 04-24-2025 Patient's home Note SITUATION: Long-Term routine visit completed today. sister also present during today's visit. patient reports the following: Allergies--reviewed Medications--reviewed current medications Falls--None BACKGROUND: Reason for Home Care: hannon catheter management ASSESSMENT: SN greeted at door by caregiver. Upon entrance patient found in bed Patient appears in no acute distress. Patient/CG concerns verbalized today: cg verbalizes that she had a problem with the catheter 2 days ago and the catheter was plugged, pt in a great deal of pain and cg states sheyla she went ahead and changed the catheter rather than have pt wait for EMS transport. This happened at about midnight. Vitals (see flow sheet for details): stable SN findings today: Pt laying in bed. See above cg report. SN notes that urine is hazy light yellow, it is draining freely at this time. No odor is noted and pt reports that he is feeling "normal". Cg reports that his bowels have been moving with stimulation and does not seem to be an issue lately when his catheter becomes plugged. She has been doing the irrigations daily and this has not made a big difference this past 2 weeks. See intervention summary for education details. Patient demonstrated a need for further skilled SN services for urinary catheter care. Current Discharge plan: recertification RECOMMENDATION: Next visit to focus on (be specific): ? prn vs for UA, C&S [facility] Work Phone: 04-10-2025 Miscellaneous Notes SITUATION: Long-Term Recert visit completed today. sister also present during today's visit. patient reports the following: Allergies--reviewed Medications--reviewed current medications Falls--None Advance Directives: Patient does have advance directives. BACKGROUND: Reason for Home Care: spina bifida with neurogenic bladder, indwelling hannon catheter ASSESSMENT: SN greeted at door by caregiver. Upon entrance patient found in bed Patient appears in no acute distress. Patient lives at home with sister. Home environment: dirty and cluttered. Patient/CG concerns verbalized today: cg verbalizes that catheter became plugged yesterday and she had no choice but to remove the catheter and insert a new one because pt was having pain and she was not able to irrigate it. Vitals (see flow sheet for details): stable SN findings today: Pt laying in bed, see above cg report. Cg states that she does not like to change the catheter because she griffin snot feel real comfortable doing it but felt that she had no choice yesterday as she did not want to send pt to ED. Cg states that the urine was quite dark yesterday and she did push fluids and urine is much improved today. SN notes that it is light yellow and slightly hazy, no sediment or mucus noted today and pt states that he is not feeling ill. Cg also feels that the pushing of fluids took care of the situation. SN reinforced to pt and cg the importance of doing this every day to prevent issues. Pt reports that he has been having issues with his bowels moving lately as well but cg states that pt did have a large BM yesterday as well. This may have contributed with extra pressure on bladder? Pt reports that he normally eats foods that help his bowels move but that when his other sister is caring for him, his diet is not as healthy as when Lesli is here. See intervention summary for education details and skills performed. Visit frequency, plan of care, and goals & dates reviewed and updated with patient and caregiver and plan of care agreed upon. Patient demonstrated a need for further skilled SN services for chronic disease management & education and urinary catheter care RECOMMENDATION: Visit Frequency: 2 mo 1 to follow up on urinary issues and dtermine if hannon cath changes need to be increased in frequency. If not then will continue monthly vs for cath changes. Need for additional services: Patient agreeable to N/A referrals. Patient declined N/A referrals. Additional concerns to be followed up on: NONE Next visit to focus on (be specific): hannon cath assessment, does hannon need to be changed every 2 weeks? How has the irrigations and pushing fluids marely going? documented in this encounter [facility] 04-10-2025 Patient's home Note SITUATION: Long-Term Recert visit completed today. sister also present during today's visit. patient reports the following: Allergies--reviewed Medications--reviewed current medications Falls--None Advance Directives: Patient does have advance directives. BACKGROUND: Reason for Home Care: spina bifida with neurogenic bladder, indwelling hannon catheter ASSESSMENT: SN greeted at door by caregiver. Upon entrance patient found in bed Patient appears in no acute distress. Patient lives at home with sister. Home environment: dirty and cluttered. Patient/CG concerns verbalized today: cg verbalizes that catheter became plugged yesterday and she had no choice but to remove the catheter and insert a new one because pt was having pain and she was not able to irrigate it. Vitals (see flow sheet for details): stable SN findings today: Pt laying in bed, see above cg report. Cg states that she does not like to change the catheter because she griffin snot feel real comfortable doing it but felt that she had no choice yesterday as she did not want to send pt to ED. Cg states that the urine was quite dark yesterday and she did push fluids and urine is much improved today. SN notes that it is light yellow and slightly hazy, no sediment or mucus noted today and pt states that he is not feeling ill. Cg also feels that the pushing of fluids took care of the situation. SN reinforced to pt and cg the importance of doing this every day to prevent issues. Pt reports that he has been having issues with his bowels moving lately as well but cg states that pt did have a large BM yesterday as well. This may have contributed with extra pressure on bladder? Pt reports that he normally eats foods that help his bowels move but that when his other sister is caring for him, his diet is not as healthy as when Lesli is here. See intervention summary for education details and skills performed. Visit frequency, plan of care, and goals & dates reviewed and updated with patient and caregiver and plan of care agreed upon. Patient demonstrated a need for further skilled SN services for chronic disease management & education and urinary catheter care RECOMMENDATION: Visit Frequency: 2 mo 1 to follow up on urinary issues and dtermine if hannon cath changes need to be increased in frequency. If not then will continue monthly vs for cath changes. Need for additional services: Patient agreeable to N/A referrals. Patient declined N/A referrals. Additional concerns to be followed up on: NONE Next visit to focus on (be specific): hannon cath assessment, does hannon need to be changed every 2 weeks? How has the irrigations and pushing fluids marely going? [facility] Work Phone: 03-13-2025 Telephone encounter Note Faxed. Wilfredo Monet MA [facility] 03-13-2025 Miscellaneous Notes Faxed. Wilfredo Monet MA printed Good morning, Pt has had trouble with this catheter the last 2 months and required an extra catheter; I spoke with [facility], his DME supplier, and they informed me that his insurance will pnly cover 1 per month.. They also informed me that if a script was sent to them stating that pt medically needs 2 16 fr/10 ml balloon hannon catheters, 2 10 ml hannon insertion trays and 2 2000 ml bedside drainage bags; they can pursue getting the extra supplies covered. Could you have your staff follow up on this please? The DME is [facility] and their fax number is [phone]. Thank you very much! documented in this encounter [facility] 03-13-2025 Telephone encounter Note printed [facility] 03-13-2025 Telephone encounter Note Good morning, Pt has had trouble with this catheter the last 2 months and required an extra catheter; I spoke with [facility], his DME supplier, and they informed me that his insurance will pnly cover 1 per month.. They also informed me that if a script was sent to them stating that pt medically needs 2 16 fr/10 ml balloon hannon catheters, 2 10 ml hannon insertion trays and 2 2000 ml bedside drainage bags; they can pursue getting the extra supplies covered. Could you have your staff follow up on this please? The DME is [facility] and their fax number is [phone]. Thank you very much! [facility] Work Phone: 03-13-2025 Miscellaneous Notes SITUATION: Long-Term routine visit completed today. sister also present during today's visit. patient reports the following: Allergies--reviewed Medications--reviewed current medications Falls--None BACKGROUND: Reason for Home Care: hannon cath management ASSESSMENT: SN greeted at door by caregiver. Upon entrance patient found in bed Patient appears in no acute distress. Patient/CG concerns verbalized today: cg reports that she ended up changing the catheter on 03/04 because of the incident on 03/03. Vitals (see flow sheet for details): stable SN findings today: Pt laying in bed. See above cg report. SN changed catheter without issue using a cath from car stock due to cg reports that pt only gets one cath per month. SN did make contact with his DME co and this is all that is covered per month. SN also inquired about how often they are irrigating and sister, Lesli, states that she usually does it as needed and only gets 2 small bottles of saline per month, she states that the urologist told her that she can use distilled water if needed. This is all the insurance covers as well. DME co did say that if the Dr sends them a script with need of more supplies, they coulc try to get additional supplies covered. See telephone.contact. [facility] fax [phone] SN changed cath today without issues, urine is clear and light yellow, flowing in adequate amounts. Pt tolerated well. See intervention summary for education details. Patient demonstrated a need for further skilled SN services for urinary catheter care. Current Discharge plan: recertification RECOMMENDATION: Next visit to focus on (be specific): catheter change, recert documented in this encounter [facility] 03-13-2025 Patient's home Note SITUATION: Long-Term routine visit completed today. sister also present during today's visit. patient reports the following: Allergies--reviewed Medications--reviewed current medications Falls--None BACKGROUND: Reason for Home Care: hannon cath management ASSESSMENT: SN greeted at door by caregiver. Upon entrance patient found in bed Patient appears in no acute distress. Patient/CG concerns verbalized today: cg reports that she ended up changing the catheter on 03/04 because of the incident on 03/03. Vitals (see flow sheet for details): stable SN findings today: Pt laying in bed. See above cg report. SN changed catheter without issue using a cath from car stock due to cg reports that pt only gets one cath per month. SN did make contact with his DME co and this is all that is covered per month. SN also inquired about how often they are irrigating and sister, Lesli, states that she usually does it as needed and only gets 2 small bottles of saline per month, she states that the urologist told her that she can use distilled water if needed. This is all the insurance covers as well. DME co did say that if the Dr sends them a script with need of more supplies, they coulc try to get additional supplies covered. See telephone.contact. [facility] fax [phone] SN changed cath today without issues, urine is clear and light yellow, flowing in adequate amounts. Pt tolerated well. See intervention summary for education details. Patient demonstrated a need for further skilled SN services for urinary catheter care. Current Discharge plan: recertification RECOMMENDATION: Next visit to focus on (be specific): catheter change, recert [facility] Work Phone: 02-26-2025 Telephone encounter Note Returned call to sister to relay recommendations and answer questions. [facility] 02-26-2025 Miscellaneous Notes Returned call to sister to relay recommendations and answer questions. Yes miralax is fine as well as enemas as needed Pt's sister, Darrion called. She says that the pt is having a hard time passing stool & is constipated more often. She is giving pt the rescue med Reglan if he hasn't had a bowel movement in a few days. Should she give Miralax daily to him? He is passing a very small amount of stool. They don't use mychart and would like a phone call back, please. documented in this encounter [facility] 02-25-2025 Telephone encounter Note Yes miralax is fine as well as enemas as needed [facility] 02-25-2025 Telephone encounter Note Pt's sister, Darrion called. She says that the pt is having a hard time passing stool & is constipated more often. She is giving pt the rescue med Reglan if he hasn't had a bowel movement in a few days. Should she give Miralax daily to him? He is passing a very small amount of stool. They don't use mychart and would like a phone call back, please. [facility] 02-18-2025 Telephone encounter Note Patient's request for medication is as follows: Requested Prescriptions Pending Prescriptions Disp Refills prucalopride 2 mg tablet (MOTEGRITY) 30 tablet 2 Sig: Take 1 tablet by mouth once daily. Please send this med to [facility] on [address] In [place], [place] [facility] 02-18-2025 Miscellaneous Notes Patient's request for medication is as follows: Requested Prescriptions Pending Prescriptions Disp Refills prucalopride 2 mg tablet (MOTEGRITY) 30 tablet 2 Sig: Take 1 tablet by mouth once daily. Please send this med to [facility] on [address] In [place], [place] documented in this encounter [facility] 02-08-2025 Miscellaneous Notes SITUATION: Long-Term Recert visit completed today. sister also present during today's visit. patient reports the following: Allergies--reviewed Medications--reviewed current medications Falls--None Advance Directives: Patient does have advance directives. BACKGROUND: Reason for Home Care: hannon cath managment ASSESSMENT: SN greeted at door by caregiver. Upon entrance patient found in bed Patient appears in no acute distress. Patient lives at home with sister. Home environment: dirty and cluttered. Patient/CG concerns verbalized today: no special concerns Vitals (see flow sheet for details): stable SN findings today: Pt laying in bed, he denies any pain, bowels have been moving regularly with daily bowel routine, pt reports he had a good movement yesterday. Hannon cath change without issue and is draining adequate amounts of light yellow urine that is clear. It is unlikely that pt will change any functional ability and will require home health for hannon changes for life. See intervention summary for education details and skills performed. Visit frequency, plan of care, and goals & dates reviewed and updated with patient and plan of care agreed upon. Home care book updated. Patient demonstrated a need for further skilled SN services for urinary catheter care RECOMMENDATION: Visit Frequency: 1 mo 2 Need for additional services: Patient agreeable to N/A referrals. Patient declined N/A referrals. Additional concerns to be followed up on: NONE Next visit to focus on (be specific): hannon cath change documented in this encounter [facility] 02-08-2025 Patient's home Note SITUATION: Long-Term Recert visit completed today. sister also present during today's visit. patient reports the following: Allergies--reviewed Medications--reviewed current medications Falls--None Advance Directives: Patient does have advance directives. BACKGROUND: Reason for Home Care: hannon cath managment ASSESSMENT: SN greeted at door by caregiver. Upon entrance patient found in bed Patient appears in no acute distress. Patient lives at home with sister. Home environment: dirty and cluttered. Patient/CG concerns verbalized today: no special concerns Vitals (see flow sheet for details): stable SN findings today: Pt laying in bed, he denies any pain, bowels have been moving regularly with daily bowel routine, pt reports he had a good movement yesterday. Hannon cath change without issue and is draining adequate amounts of light yellow urine that is clear. It is unlikely that pt will change any functional ability and will require home health for hannon changes for life. See intervention summary for education details and skills performed. Visit frequency, plan of care, and goals & dates reviewed and updated with patient and plan of care agreed upon. Home care book updated. Patient demonstrated a need for further skilled SN services for urinary catheter care RECOMMENDATION: Visit Frequency: 1 mo 2 Need for additional services: Patient agreeable to N/A referrals. Patient declined N/A referrals. Additional concerns to be followed up on: NONE Next visit to focus on (be specific): hannon cath change [facility] Work Phone: 01-09-2025 Miscellaneous Notes SITUATION: Long-Term routine visit completed today. sister also present during today's visit. patient reports the following: Allergies--reviewed Medications--reviewed current medications Falls--None BACKGROUND: Reason for Home Care: hannon cath management ASSESSMENT: SN greeted at door by caregiver. Upon entrance patient found in bed Patient appears in no acute distress. Patient/CG concerns verbalized today: no new concerns Vitals (see flow sheet for details): stable SN findings today: Pt laying in bed. Pt reports that his bowels have been moving regularly. Hannon cath changed ithout difficulty, draining dilute clear yellow urine. See intervention summary for education details. Patient demonstrated a need for further skilled SN services for urinary catheter care. Current Discharge plan: recertification RECOMMENDATION: Next visit to focus on (be specific): hannon cath change, recert. documented in this encounter [facility] 01-09-2025 Patient's home Note SITUATION: Long-Term routine visit completed today. sister also present during today's visit. patient reports the following: Allergies--reviewed Medications--reviewed current medications Falls--None BACKGROUND: Reason for Home Care: hannon cath management ASSESSMENT: SN greeted at door by caregiver. Upon entrance patient found in bed Patient appears in no acute distress. Patient/CG concerns verbalized today: no new concerns Vitals (see flow sheet for details): stable SN findings today: Pt laying in bed. Pt reports that his bowels have been moving regularly. Hannon cath changed ithout difficulty, draining dilute clear yellow urine. See intervention summary for education details. Patient demonstrated a need for further skilled SN services for urinary catheter care. Current Discharge plan: recertification RECOMMENDATION: Next visit to focus on (be specific): hannon cath change, recert. [facility] Work Phone: 12-20-2024 Telephone encounter Note Patient's request for medication is as follows: Requested Prescriptions Pending Prescriptions Disp Refills metoclopramide HCl (REGLAN) 5 mg tablet 10 tablet 2 Sig: Take 1 po up to tid prn constipation Please send this med to [facility] on [address] in [place], [place]. [facility] 12-20-2024 Miscellaneous Notes Patient's request for medication is as follows: Requested Prescriptions Pending Prescriptions Disp Refills metoclopramide HCl (REGLAN) 5 mg tablet 10 tablet 2 Sig: Take 1 po up to tid prn constipation Please send this med to [facility] [address] in [place], [place]. documented in this encounter [facility] 12-13-2024 Miscellaneous Notes SITUATION: Long-Term Recert visit completed today. sister also present during today's visit. patient reports the following: Allergies--reviewed Medications--reviewed current medications Falls--None Advance Directives: Patient does have advance directives. BACKGROUND: Reason for Home Care: hannon catheter management ASSESSMENT: SN greeted at door by caregiver. Upon entrance patient found in bed Patient appears in no acute distress. Patient lives at home with sister. Home environment: dirty and cluttered. Patient/CG concerns verbalized today: no new concerns Vitals (see flow sheet for details): stable SN findings today: Pt laying in bed. Hannon catheter changed without issues. Urines is light yellow, slightly hazy. Pt reports that he did have some constipation this past week but was relieved with a dose of reglan. appetite has been good, he takes fluids well. See intervention summary for education details and skills performed. Visit frequency, plan of care, and goals & dates reviewed and updated with patient and plan of care agreed upon. Home care book updated. Patient demonstrated a need for further skilled SN services for urinary catheter care RECOMMENDATION: Visit Frequency: 1 month 2 Need for additional services: Patient agreeable to N/A referrals. Patient declined N/A referrals. Additional concerns to be followed up on: NONE Next visit to focus on (be specific): hannon catheter change documented in this encounter [facility] 12-13-2024 Patient's home Note SITUATION: Long-Term Recert visit completed today. sister also present during today's visit. patient reports the following: Allergies--reviewed Medications--reviewed current medications Falls--None Advance Directives: Patient does have advance directives. BACKGROUND: Reason for Home Care: hannon catheter management ASSESSMENT: SN greeted at door by caregiver. Upon entrance patient found in bed Patient appears in no acute distress. Patient lives at home with sister. Home environment: dirty and cluttered. Patient/CG concerns verbalized today: no new concerns Vitals (see flow sheet for details): stable SN findings today: Pt laying in bed. Hannon catheter changed without issues. Urines is light yellow, slightly hazy. Pt reports that he did have some constipation this past week but was relieved with a dose of reglan. appetite has been good, he takes fluids well. See intervention summary for education details and skills performed. Visit frequency, plan of care, and goals & dates reviewed and updated with patient and plan of care agreed upon. Home care book updated. Patient demonstrated a need for further skilled SN services for urinary catheter care RECOMMENDATION: Visit Frequency: 1 month 2 Need for additional services: Patient agreeable to N/A referrals. Patient declined N/A referrals. Additional concerns to be followed up on: NONE Next visit to focus on (be specific): hannon catheter change [facility] Work Phone: 11-26-2024 Note HNO ID: [id number] Author: ANNA EID RN Service: ? Author Type: Registered Nurse Type: Progress Notes Filed: 11/26/2024 11:27 Note Text: [facility] POPULATION HEALTH NAVIGATION OUTREACH Action/I 04/24/2024 Patient outreach uploaded to [employer] to close care gap for 04-13-2024 [facility]-PED Patient Identified by Name and : Yes, via EPIC - no outreach needed Reason for Outreach Attribution: Attribution review/confirmation Care Gap or Scheduling Wellness Visits Care Gap Reviewed:: [facility] Outreach Outcome/Action Population Health Navigation Workflow Attribution Chart Review Cute PDF and Portal Submission Payer: [place] Navigation Signature: Anna Eid RN November 26, 2024 11:26 AM [facility] 11-26-2024 History of Present illness Narrative [facility] POPULATION HEALTH NAVIGATION OUTREACH Action/I 04/24/2024 Patient outreach uploaded to [employer] to close care gap for 04-13-2024 [facility]-PED Patient Identified by Name and : Yes, via EPIC - no outreach needed Reason for Outreach Attribution: Attribution review/confirmation Care Gap or Scheduling Wellness Visits Care Gap Reviewed:: [facility] Outreach Outcome/Action Population Health Navigation Workflow Attribution Chart Review Cute PDF and Portal Submission Payer: [employer] Navigation Signature: Anna Eid RN November 26, 2024 11:26 AM documented in this encounter [facility] 11-26-2024 Note Patient Outreach ([facility]) ADARSHJIAN ([id number]) 1965 M Date Time Provider Department 11/26/24 ANNA EID [facility] During your visit today, we recorded the following information about you: Anna Eid RN 11/26/2024 11:27 AM Signed [facility] POPULATION HEALTH NAVIGATION OUTREACH Action/FYI 04/24/2024 Patient outreach uploaded to [employer] to close care gap for 04-13-2024 [facility]-PED Patient Identified by Name and : Yes, via EPIC - no outreach needed Reason for Outreach Attribution: Attribution review/confirmation Care Gap or Scheduling Wellness Visits Care Gap Reviewed:: [facility] Outreach Outcome/Action Population Health Navigation Workflow Attribution Chart Review Cute PDF and Portal Submission Payer: [employer] Navigation Signature: Anna Eid RN November 26, 2024 11:26 AM Allergies As of Date: 11/26/2024 Noted Allergy Reaction CONTRAST DYE 10/29/2010 10 - Anaphylaxis FD AND C BLUE NO.1 07/29/2006 IODINATED CONTRAST MEDIA 12/11/2020 10 - Anaphylaxis MACRODANTIN (NITROFURANTOIN MACRO*10/29/2010 8 - GI Upset NITROFURANTOIN 12/11/2020 8 - GI Upset PHENYTOIN 07/29/2006 Date Reviewed: 11/16/2024 Reviewed by: Daniella Garrett RN - Fully Assessed Reason for Visit: Population Health Navigation Outreach [3910] Cmt: [employer] Attributed Member - Chart Review Prescriptions as of 11/26/2024 - prucalopride (MOTEGRITY) 2 mg tab tablet Take 1 tablet (2 mg) by mouth once daily. - baclofen 5 mg tablet Take 1 tablet by mouth three times a day. - linaCLOtide (LINZESS) 290 mcg capsule Take 1 po qd - metoclopramide HCl (REGLAN) 5 mg tablet Take 1 po up to tid prn constipation - trospium (SANCTURA) 20 mg tablet Take 1 tablet by mouth two times a day as needed (bladder spasm or urine leaking around catheter). - polyethylene glycol 3350 (MIRALAX) 17 gram packet Take 1 Packet by mouth once daily as needed for constipation. Dissolve dose in 4 - 8 ounces of liquid and take as directed. - omeprazole (PRILOSEC) 20 mg capsule Take 1 capsule by mouth daily before breakfast. 1/2 hr before meal. - bisacodyl (DULCOLAX) 10 mg supp Bisacodyl Active 10 MG rectally daily NEEDED for constipation Meds Comments as of 11/01/2020: 11/01/2020 Pt's sister stating pt not taking Cipro at this time, completed course of atb. 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 Patient's sister called to request the med Motegrity 2mg to go to [facility] in [place], [place] on [address]. She stated the pharmacy told her the med was discontinued. [facility] 11-21-2024 Miscellaneous Notes Patient's request for medication is as follows: Requested Prescriptions Pending Prescriptions Disp Refills prucalopride (MOTEGRITY) 2 mg tab tablet 30 tablet 2 Sig: Take 1 tablet (2 mg) by mouth once daily. Patient's sister called to request the med Motegrity 2mg to go to [facility] in [place], [place] on [facility] [address] [address]. She stated the pharmacy told her the med was discontinued. documented in this encounter [facility] 11-16-2024 Miscellaneous Notes SITUATION: Long-Term routine visit completed today. family members also present during today's visit. patient and caregiver reports the following: Allergies--reviewed Medications--reviewed current medications Falls--None BACKGROUND: Reason for Home Care: hannon cath management ASSESSMENT: SN greeted at door by caregiver. Upon entrance patient found in bed Patient appears in no acute distress. Patient/CG concerns verbalized today: no special concerns Vitals (see flow sheet for details): stable SN findings today: Pt laying in bed. Family states that catheter has functioned well this past month. SN changed hannon cath without issues and clear light yellow urine is draining freely. Pt reports that bowel routine has been going well and have been moving daily. See intervention summary for education details. Patient demonstrated a need for further skilled SN services for urinary catheter care. Current Discharge plan: recertification RECOMMENDATION: Next visit to focus on (be specific): recert and cath change documented in this encounter [facility] 11-16-2024 Patient's home Note SITUATION: Long-Term routine visit completed today. family members also present during today's visit. patient and caregiver reports the following: Allergies--reviewed Medications--reviewed current medications Falls--None BACKGROUND: Reason for Home Care: hannon cath management ASSESSMENT: SN greeted at door by caregiver. Upon entrance patient found in bed Patient appears in no acute distress. Patient/CG concerns verbalized today: no special concerns Vitals (see flow sheet for details): stable SN findings today: Pt laying in bed. Family states that catheter has functioned well this past month. SN changed hannon cath without issues and clear light yellow urine is draining freely. Pt reports that bowel routine has been going well and have been moving daily. See intervention summary for education details. Patient demonstrated a need for further skilled SN services for urinary catheter care. Current Discharge plan: recertification RECOMMENDATION: Next visit to focus on (be specific): recert and cath change [facility] Work Phone: 10-17-2024 Miscellaneous Notes SITUATION: Long-Term routine visit completed today. family members also present during today's visit. patient reports the following: Allergies--reviewed Medications--reviewed current medications Falls--None BACKGROUND: Reason for Home Care: hannon cath management, hx of spina bifida ASSESSMENT: SN greeted at door by caregiver. Upon entrance patient found in bed Patient appears in no acute distress. Patient/CG concerns verbalized today: no special concerns Vitals (see flow sheet for details): stable SN findings today: Pt laying in bed. Hannon cath removed without difficulty. New hannon cath inserted without difficulty. There was hesitation for urine to return but cath was inserted the full length and balloon inflated without resistance. After a few minutes then light hazy yellow urine started to flow. Pt tolerated all well. See intervention summary for education details. Patient demonstrated a need for further skilled SN services for safety and urinary catheter care. Current Discharge plan: recertification RECOMMENDATION: Next visit to focus on (be specific): Hannon cath change documented in this encounter [facility] 10-17-2024 Patient's home Note SITUATION: Long-Term routine visit completed today. family members also present during today's visit. patient reports the following: Allergies--reviewed Medications--reviewed current medications Falls--None BACKGROUND: Reason for Home Care: hannon cath management, hx of spina bifida ASSESSMENT: SN greeted at door by caregiver. Upon entrance patient found in bed Patient appears in no acute distress. Patient/CG concerns verbalized today: no special concerns Vitals (see flow sheet for details): stable SN findings today: Pt laying in bed. Hannon cath removed without difficulty. New hannon cath inserted without difficulty. There was hesitation for urine to return but cath was inserted the full length and balloon inflated without resistance. After a few minutes then light hazy yellow urine started to flow. Pt tolerated all well. See intervention summary for education details. Patient demonstrated a need for further skilled SN services for safety and urinary catheter care. Current Discharge plan: recertification RECOMMENDATION: Next visit to focus on (be specific): Hannon cath change [facility] Work Phone: 10-10-2024 Miscellaneous Notes SITUATION: Long-Term Recert visit completed today. sister also present during today's visit. patient reports the following: Allergies--reviewed Medications--reviewed current medications Falls--None Advance Directives: Patient does have advance directives. BACKGROUND: Reason for Home Care: urinary cath managment ASSESSMENT: SN greeted at door by caregiver. Upon entrance patient found in wheelchair Patient appears in no acute distress. Patient lives at home with sister Home environment: dirty and cluttered. Pt unable to negotiate with his w/c on his own. There is a w/c ramp but pt needs assist of family to use this as well. Patient/CG concerns verbalized today: no new concerns Vitals (see flow sheet for details): stable SN findings today: Pt sitting at kitchen table in w/c. SisterLesli present today. She shares care responsibilities with pt's other sister, Isadora. Pt lives in a very old home which is very cluttered and he is not able to manage basic care needs but is able to bear weight for transfers and able to use assist of 1 person. Primary reason for home care is for urinary cath change monthly. Recert vs done this date due to 5 day window for recert does not coincide with cath change due date. Pt will continue to need this urinary cath for life; next change due on 10/17. Pt and cg appear to be managing all other needs at this time. See intervention summary for education details and skills performed. Visit frequency, plan of care, and goals & dates reviewed and updated with patient and caregiver and plan of care agreed upon. Home care book updated. Patient demonstrated a need for further skilled SN services for urinary catheter care RECOMMENDATION: Visit Frequency: every 4 weeks Need for additional services: Patient agreeable to N/A referrals. Patient declined N/A referrals. Additional concerns to be followed up on: NONE Next visit to focus on (be specific): hannon cath change documented in this encounter [facility] 10-10-2024 Patient's home Note SITUATION: Long-Term Recert visit completed today. sister also present during today's visit. patient reports the following: Allergies--reviewed Medications--reviewed current medications Falls--None Advance Directives: Patient does have advance directives. BACKGROUND: Reason for Home Care: urinary cath managment ASSESSMENT: SN greeted at door by caregiver. Upon entrance patient found in wheelchair Patient appears in no acute distress. Patient lives at home with sister Home environment: dirty and cluttered. Pt unable to negotiate with his w/c on his own. There is a w/c ramp but pt needs assist of family to use this as well. Patient/CG concerns verbalized today: no new concerns Vitals (see flow sheet for details): stable SN findings today: Pt sitting at kitchen table in w/c. SisterLesli present today. She shares care responsibilities with pt's other sister, Isadora. Pt lives in a very old home which is very cluttered and he is not able to manage basic care needs but is able to bear weight for transfers and able to use assist of 1 person. Primary reason for home care is for urinary cath change monthly. Recert vs done this date due to 5 day window for recert does not coincide with cath change due date. Pt will continue to need this urinary cath for life; next change due on 10/17. Pt and cg appear to be managing all other needs at this time. See intervention summary for education details and skills performed. Visit frequency, plan of care, and goals & dates reviewed and updated with patient and caregiver and plan of care agreed upon. Home care book updated. Patient demonstrated a need for further skilled SN services for urinary catheter care RECOMMENDATION: Visit Frequency: every 4 weeks Need for additional services: Patient agreeable to N/A referrals. Patient declined N/A referrals. Additional concerns to be followed up on: NONE Next visit to focus on (be specific): hannon cath change [facility] Work Phone: 09-19-2024 Miscellaneous Notes SITUATION: Long-Term routine visit completed today. sister also present during today's visit. patient reports the following: Allergies--reviewed Medications--reviewed current medications Falls--None BACKGROUND: Reason for Home Care: hannon cath management ASSESSMENT: SN greeted at door by caregiver. Upon entrance patient found in bed Patient appears in no acute distress. Patient/CG concerns verbalized today: no new concerns Vitals (see flow sheet for details): stable SN findings today: Pt laying in bed ready for cath change. No new concerns, cg independent with catheter irrigation. SN changed ctheter without issues, draining slightly hazy light yellow urine in good amounts. See intervention summary for education details. Patient demonstrated a need for further skilled SN services for urinary catheter care. Current Discharge plan: recertification RECOMMENDATION: Next visit to focus on (be specific): recert documented in this encounter [facility] 09-19-2024 Patient's home Note SITUATION: Long-Term routine visit completed today. sister also present during today's visit. patient reports the following: Allergies--reviewed Medications--reviewed current medications Falls--None BACKGROUND: Reason for Home Care: hannon cath management ASSESSMENT: SN greeted at door by caregiver. Upon entrance patient found in bed Patient appears in no acute distress. Patient/CG concerns verbalized today: no new concerns Vitals (see flow sheet for details): stable SN findings today: Pt laying in bed ready for cath change. No new concerns, cg independent with catheter irrigation. SN changed ctheter without issues, draining slightly hazy light yellow urine in good amounts. See intervention summary for education details. Patient demonstrated a need for further skilled SN services for urinary catheter care. Current Discharge plan: recertification RECOMMENDATION: Next visit to focus on (be specific): recert [facility] Work Phone: 09-06-2024 Telephone encounter Note Patient's sister, Isadora, called to refill his baclofen 5 mg rx. Not on current med list and he only has 2 days of medication left. Wants to know if it can be sent to [facility] in [place]. She would like a call at [phone] when sent. [facility] 09-06-2024 Miscellaneous Notes Patient's sister, Isadora, called to refill his baclofen 5 mg rx. Not on current med list and he only has 2 days of medication left. Wants to know if it can be sent to [facility] in [place]. She would like a call at [phone] when sent. documented in this encounter [facility] 09-03-2024 Telephone encounter Note Patient's home nurse visit on 08/29/24 was unmade as patient had his catheter changed on 08/24/24. Thank you. Wero Uribe RN [place] [facility] Work Phone: 09-03-2024 Miscellaneous Notes Patient's home nurse visit on 08/29/24 was unmade as patient had his catheter changed on 08/24/24. Thank you. Wero Uribe RN [facility] documented in this encounter [facility] 08-29-2024 Telephone encounter Note Patients sister notified and voiced her understanding. [facility] 08-29-2024 Miscellaneous Notes Patients sister notified and voiced her understanding. TC to pt. LM to call office, ask for triage nurse to get results. Julita Hameed LPN Can please let patient/sister know that the urine culture did not show an infection. If he is continuing to have symptoms, please let us know, as we should repeat the culture. Yvette Gao APRN.[employer] documented in this encounter [facility] 08-29-2024 Telephone encounter Note TC to pt. LM to call office, ask for triage nurse to get results. Julita Hameed LPN [facility] 08-29-2024 Telephone encounter Note Can please let patient/sister know that the urine culture did not show an infection. If he is continuing to have symptoms, please let us know, as we should repeat the culture. Yvette Gao APRN.[employer] [facility] 08-29-2024 Miscellaneous Notes Patient to be seen this date for cath change, visit not needed as cath was changed earlier last week 08/24/24. Dr. Estes notified via telephone encounter. documented in this encounter [facility] 08-29-2024 Patient's home Note Patient to be seen this date for cath change, visit not needed as cath was changed earlier last week 08/24/24. Dr. Estes notified via telephone encounter. [facility] Work Phone: 08-24-2024 Miscellaneous Notes SITUATION: Long-Term PRN visit completed today. sister also present during today's visit. caregiver reports the following: Allergies--reviewed Medications--reviewed current medications Falls--None BACKGROUND: Reason for Home Care: cath care Reason for PRN Visit: hannon cath change, urine collection ASSESSMENT: SN greeted at door by caregiver. Upon entrance patient found in bed Patient appears in no acute distress. Patient/CG concerns verbalized today: none Vitals (see flow sheet for details): stable SN findings today: pts sister greets sn at door. pt sitting in kitchen in wheelchair. pt denies any falls. pt c/o generalized pain and aches. pts sister denies any medication changes, pt sister is pt primary CG. today sister tells sn she is trying to get pt to move his bowels, pt normally moves bowels daily but has not in 2 days. pts sister tells sn pts urine has been cloudy. pts appetite is good and pt is drinking plenty of fluid per pt and sister. pts vitals are wnl. pts lungs are clear. BSP x 4, abdomen is soft and non tender. sn changed pts hannon with no issues. inserted 16 fr inflated with 10 cc NS. urine specimen collected for UA and C&S, taken to [facility]. pt tolerated well. See intervention summary for education details and skills performed. RECOMMENDATION: Next visit to focus on (be specific): results from UA and C&S? documented in this encounter [facility] 08-24-2024 Patient's home Note SITUATION: Long-Term PRN visit completed today. sister also present during today's visit. caregiver reports the following: Allergies--reviewed Medications--reviewed current medications Falls--None BACKGROUND: Reason for Home Care: cath care Reason for PRN Visit: hannon cath change, urine collection ASSESSMENT: SN greeted at door by caregiver. Upon entrance patient found in bed Patient appears in no acute distress. Patient/CG concerns verbalized today: none Vitals (see flow sheet for details): stable SN findings today: pts sister greets sn at door. pt sitting in kitchen in wheelchair. pt denies any falls. pt c/o generalized pain and aches. pts sister denies any medication changes, pt sister is pt primary CG. today sister tells sn she is trying to get pt to move his bowels, pt normally moves bowels daily but has not in 2 days. pts sister tells sn pts urine has been cloudy. pts appetite is good and pt is drinking plenty of fluid per pt and sister. pts vitals are wnl. pts lungs are clear. BSP x 4, abdomen is soft and non tender. sn changed pts hannon with no issues. inserted 16 fr inflated with 10 cc NS. urine specimen collected for UA and C&S, taken to [facility]. pt tolerated well. See intervention summary for education details and skills performed. RECOMMENDATION: Next visit to focus on (be specific): results from UA and C&S? [facility] Work Phone: 08-23-2024 Miscellaneous Notes Patients sister requested a visit tomorrow morning rather than tonight. Patient will be unmade. documented in this encounter [facility] 08-23-2024 Patient's home Note Patients sister requested a visit tomorrow morning rather than tonight. Patient will be unmade. [facility] Work Phone: 08-22-2024 Miscellaneous Notes Addended by: YVETTE GAO on: 08/22/2024 01:01 PM Modules accepted: Orders Yes please. Orders are in. Yvette Gao APRN.KAREN Call from patient's sister, she believes patient has a UTI, dark yellow urine, foul odor, very cloudy, requesting we check UA< C&S of urine , do you want to order this? I can schedule a nurse to go out and change hannon and obtain. Last cath. Change was 08/03/24. documented in this encounter [facility] 08-22-2024 Note Addended by: YEVTTE GAO on: 08/22/2024 01:01 PM Modules accepted: Orders [facility] 08-22-2024 Telephone encounter Note Yes please. Orders are in. Yvette Gao APRN.CNP [facility] 08-22-2024 Telephone encounter Note Call from patient's sister, she believes patient has a UTI, dark yellow urine, foul odor, very cloudy, requesting we check UA< C&S of urine , do you want to order this? I can schedule a nurse to go out and change hannon and obtain. Last cath. Change was 08/03/24. [facility] Work Phone: 08-15-2024 Telephone encounter Note Patient's request for medication is as follows: Requested Prescriptions Pending Prescriptions Disp Refills linaCLOtide (LINZESS) 290 mcg capsule 90 capsule 2 Sig: Take 1 po qd Please send this med to [facility] on [address] in [place], [place]. [facility] 08-15-2024 Miscellaneous Notes Patient's request for medication is as follows: Requested Prescriptions Pending Prescriptions Disp Refills linaCLOtide (LINZESS) 290 mcg capsule 90 capsule 2 Sig: Take 1 po qd Please send this med to [facility] on [facility] in [place], [place]. documented in this encounter [facility] 08-15-2024 Miscellaneous Notes SITUATION: Long-Term Recert visit completed today. sisters also present during today's visit. patient reports the following: Allergies--reviewed Medications--reviewed current medications Falls--None BACKGROUND: Reason for Home Care: hannon cath management ASSESSMENT: SN greeted at door by caregiver. Upon entrance patient found in chair Patient appears in no acute distress. Patient lives at home with sister. Home environment: dirty and cluttered. Patient/CG concerns verbalized today: no special concerns Vitals (see flow sheet for details): stable SN findings today: Pt up in w/c. Hannon cath draining light yellow hazy urine in good amounts. Pt reports that cg has irrigated catheter several times, no evidence of blockage. Pt reports tath bowels have been moving well, cg assists with a daily bowel routine. Pt reports that appetite has been good, he is taking fluids well. Cg reports no evidence of skin breakdown. See intervention summary for education details and skills performed. Visit frequency, plan of care, and goals & dates reviewed and updated with patient and caregiver and plan of care agreed upon. Home care book updated. Patient demonstrated a need for further skilled SN services for urinary catheter care RECOMMENDATION: Visit Frequency: monthly for catheter changes. Need for additional services: Patient agreeable to N/A referrals. Patient declined N/A referrals. Additional concerns to be followed up on: NONE Next visit to focus on (be specific): hannon catheter change documented in this encounter [facility] 08-15-2024 Patient's home Note SITUATION: Long-Term Recert visit completed today. sisters also present during today's visit. patient reports the following: Allergies--reviewed Medications--reviewed current medications Falls--None BACKGROUND: Reason for Home Care: hannon cath management ASSESSMENT: SN greeted at door by caregiver. Upon entrance patient found in chair Patient appears in no acute distress. Patient lives at home with sister. Home environment: dirty and cluttered. Patient/CG concerns verbalized today: no special concerns Vitals (see flow sheet for details): stable SN findings today: Pt up in w/c. Hannon cath draining light yellow hazy urine in good amounts. Pt reports that cg has irrigated catheter several times, no evidence of blockage. Pt reports tath bowels have been moving well, cg assists with a daily bowel routine. Pt reports that appetite has been good, he is taking fluids well. Cg reports no evidence of skin breakdown. See intervention summary for education details and skills performed. Visit frequency, plan of care, and goals & dates reviewed and updated with patient and caregiver and plan of care agreed upon. Home care book updated. Patient demonstrated a need for further skilled SN services for urinary catheter care RECOMMENDATION: Visit Frequency: monthly for catheter changes. Need for additional services: Patient agreeable to N/A referrals. Patient declined N/A referrals. Additional concerns to be followed up on: NONE Next visit to focus on (be specific): hannon catheter change [facility] Work Phone: 08-03-2024 Miscellaneous Notes SITUATION: Long-Term routine visit completed today. sisters also present during today's visit. patient reports the following: Allergies--reviewed Medications--reviewed current medications Falls--None BACKGROUND: Reason for Home Care: urinary cath management ASSESSMENT: SN greeted at door by caregiver. Upon entrance patient found in bed Patient appears in no acute distress. Patient/CG concerns verbalized today: no special concerns Vitals (see flow sheet for details): stable SN findings today: Pt laying in bed. He and cg report that catheter has been functioning well, they have irrigated a couple of times since last insertion but no signs of blockage. urine is dilute yellow and slightly hazy, draining in good amounts. Cath change today without issues. See intervention summary for education details. Patient demonstrated a need for further skilled SN services for urinary catheter care. Current Discharge plan: recertification RECOMMENDATION: Next visit to focus on (be specific): recert documented in this encounter [facility] 08-03-2024 Patient's home Note SITUATION: Long-Term routine visit completed today. sisters also present during today's visit. patient reports the following: Allergies--reviewed Medications--reviewed current medications Falls--None BACKGROUND: Reason for Home Care: urinary cath management ASSESSMENT: SN greeted at door by caregiver. Upon entrance patient found in bed Patient appears in no acute distress. Patient/CG concerns verbalized today: no special concerns Vitals (see flow sheet for details): stable SN findings today: Pt laying in bed. He and cg report that catheter has been functioning well, they have irrigated a couple of times since last insertion but no signs of blockage. urine is dilute yellow and slightly hazy, draining in good amounts. Cath change today without issues. See intervention summary for education details. Patient demonstrated a need for further skilled SN services for urinary catheter care. Current Discharge plan: recertification RECOMMENDATION: Next visit to focus on (be specific): recert [facility] Work Phone: 07-19-2024 Telephone encounter Note 07/19/24 SIPHONER called the pt.'s sister Lesli Bansal to follow-up from phone call 06/18/24 how they were managing the pt.'s care. She stated that the pt. was doing better. She stated she finished her Radiation treatments. SIPHONER asked the pt.'s sister if she received the information SIPHONER mailed on [facility]. She stated she would have to look and was out of town for a couple of days. The pt.'s sister stated she did not feel they needed more help at this time. SIPHONER informed the pt.'s sister to call SIPHONER with any needs. Thank You, [facility] Work Phone: 07-19-2024 Miscellaneous Notes 07/19/24 SIPHONER called the pt.'s sister Lesli Bansal to follow-up from phone call 06/18/24 how they were managing the pt.'s care. She stated that the pt. was doing better. She stated she finished her Radiation treatments. SIPHONER asked the pt.'s sister if she received the information SIPHONER mailed on [facility] [employer]. She stated she would have to look and was out of town for a couple of days. The pt.'s sister stated she did not feel they needed more help at this time. SIPHONER informed the pt.'s sister to call SIPHONER with any needs. Thank You, documented in this encounter [facility] 07-19-2024 Miscellaneous Notes 07/19/24 12:39 PM - 12:42 PM SIPHONER called the pt.'s sister Lesli Bansal to follow-up how they were managing the pt.'s care. She stated that the pt. was doing better. She stated she finished her Radiation treatments. SIPHONER asked the pt.'s sister if she received the information SIPHONER mailed on [facility]. She stated she would have to look and was out of town for a couple of days. The pt.'s sister stated she did not feel they needed more help at this time. SIPHONER informed the pt.'s sister to call SIPHONER with any needs. 07/19/[address] Clifford PATEL called the pt.'s sister Lesli Bansal to follow-up from phone call 06/18/24 how they were managing the pt.'s care. She stated that the pt. was doing better. She stated she finished her Radiation treatments. SIPHONER asked the pt.'s sister if she received the information SIPHONER mailed on [facility]. She stated she would have to look and was out of town for a couple of days. The pt.'s sister stated she did not feel they needed more help at this time. SIPHONER informed the pt.'s sister to call SIPHONER with any needs. Thank You, documented in this encounter [facility] 07-19-2024 Patient's home Note 07/19/24 12:39 PM - 12:42 PM SIPHONER called the pt.'s sister Lesli Bansal to follow-up how they were managing the pt.'s care. She stated that the pt. was doing better. She stated she finished her Radiation treatments. SIPHONER asked the pt.'s sister if she received the information SIPHONER mailed on [facility]. She stated she would have to look and was out of town for a couple of days. The pt.'s sister stated she did not feel they needed more help at this time. SIPHONER informed the pt.'s sister to call SIPHONER with any needs. 07/19/[address] Clifford VUW called the pt.'s sister Lesli Bansal to follow-up from phone call 06/18/24 how they were managing the pt.'s care. She stated that the pt. was doing better. She stated she finished her Radiation treatments. SIPHONER asked the pt.'s sister if she received the information SIPHONER mailed on [facility]. She stated she would have to look and was out of town for a couple of days. The pt.'s sister stated she did not feel they needed more help at this time. SIPHONER informed the pt.'s sister to call SIPHONER with any needs. Thank You, [facility] Work Phone: 07-05-2024 Miscellaneous Notes SITUATION: Long-Term routine visit completed today. sister also present during today's visit. patient reports the following: Allergies--reviewed Medications--reviewed current medications Falls--None BACKGROUND: Reason for Home Care: hannon cath management ASSESSMENT: SN greeted at door by caregiver. Upon entrance patient found in bed Patient appears in no acute distress. Patient/CG concerns verbalized today: no special concerns Vitals (see flow sheet for details): stable SN findings today: Pt laying in bed. He reports no special concerns, bowels have been moving well with his daily bowel routine. Hannon is draining slightly hazy light yellow urine in good amounts. Catheter changed today without any issues, See intervention summary for education details. Patient demonstrated a need for further skilled SN services for urinary catheter care. Current Discharge plan: recertification RECOMMENDATION: Next visit to focus on (be specific): hannon cath change. documented in this encounter [facility] 07-05-2024 Patient's home Note SITUATION: Long-Term routine visit completed today. sister also present during today's visit. patient reports the following: Allergies--reviewed Medications--reviewed current medications Falls--None BACKGROUND: Reason for Home Care: hannon cath management ASSESSMENT: SN greeted at door by caregiver. Upon entrance patient found in bed Patient appears in no acute distress. Patient/CG concerns verbalized today: no special concerns Vitals (see flow sheet for details): stable SN findings today: Pt laying in bed. He reports no special concerns, bowels have been moving well with his daily bowel routine. Hannon is draining slightly hazy light yellow urine in good amounts. Catheter changed today without any issues, See intervention summary for education details. Patient demonstrated a need for further skilled SN services for urinary catheter care. Current Discharge plan: recertification RECOMMENDATION: Next visit to focus on (be specific): hannon cath change. [facility] Work Phone: 07-02-2024 Instructions Nayely Nazario MD - 07/02/2024 2:57 PM EDT Dear Jian Altamirano, It was a pleasure seeing you and talking to you! Here are some things we discussed: -- continue bowel regimen- goal 1-2 soft BMs per day, pt has refills -- 2 Liters per day, adequate electrolytes and check electrolytes with PCP -- avoid UTIs -- last colonoscopy in 2020 Follow up as needed Let's follow up virtually or via mychart after above or as needed. Please feel free to call with questions and concerns anytime. My nurse Daya and clinical secretary Kishor are also very familiar with you and they can help as well, but I am here for you anytime. Follow up appt at: [phone]. Scheduling number is: [phone] Jc regards, Nayely Nazario M.D Staff Brake Tester, GI motility & pelvic floor clinic Department of Gastroenterology, Nutrition & Hepatology [facility] [place] ([facility] documented in this encounter [facility] 07-02-2024 History of Present illness Narrative DEPARTMENT OF GASTROENTEROLOGY - FOLLOW UP VISIT NEUROGASTROENTEROLOGY SECTION GI MOTILITY & PELVIC FLOOR CLINIC HISTORY OF PRESENT ILLNESS Jian Alexis Adarsh is a 58 year old male who presents today for follow up of neurogenic bowel f/u recent SBO- had NG tube got Mg and K and IVF in [facility]. Past medical history is significant for JASON, spina bifida, hydrocephalus s/p shunt, neurogenic bowel. Previously seen by Dr. Mar and Liz Villarreal. Motegrity at bedtime, linzess 290 mcg and daily suppositories and enema as needed. Now having Bms daily. They have refills. HOSPITAL COURSE: He presented to [facility] ED on 06/06 with abdominal pain, emesis and fever to 38C. He was found to have a UTI which was treated with ceftriaxone and exchange of his indwelling urinary catheter. CT abdomen also showed SBO with a transition point in the mid-abdomen. An NGT was placed and he was made NPO. Gastrografin small bowel follow through on 06/07 showed no evidence of SBO but dilatation suggestive of ileus. He was transferred to [facility] on 06/11 at which time he had return of bowel function and had had 4/5 days of IV ceftriaxone. Repeat KUB showed no small bowel obstruction. The NGT was removed and a clear liquid diet was started. He tolerated a CLD well, with no nausea, vomiting or abdominal pain. On 06/12 his diet was further advanced to Gastrointestinal Soft diet, which he also tolerated well, without any nausea, vomiting or abdominal pain. He also completed his last dose of Ceftriaxone. He was therefore medically cleared for discharge back home with his sister who is his primary nurse healthcare manager. Discharged on 06/12. Refers daily regimen of multiple suppositories. Refers will do tap water enemas. Still taking the linzess. Uses the reglan when starts to have problems, and will start later tonight. Uses the motegrity. Refers that he did pass gas this morning. No n/v. No abdominal pain. Refers that he is having "some gurgling." Did have some cereal and a banana today. Has appt with motility provider next Tuesday. Motility testing, medications and history since last visit: Imaging/Procedures: Sigmoidoscopy 11/2022: - Dilated in the rectum, in the sigmoid colon, in the descending colon and in the distal transverse colon with redundant colon consistent with chronic colonic dysmotility. - Stool in the entire examined colon. - No specimens collected. Colonoscopy 03/2021: - Tortuous colon with redundancy and atonic. - No specimens collected. Xray 06/11/2024: IMPRESSION: NG/OG tube tip in the gastric antrum/pyloric region with side port below the diaphragm. Intact SOFT SHOE DANCER shunt catheter courses along the right chest and abdominal wall. Scattered gas in normal caliber small bowel. Gas-filled, dilated, and redundant colon, similar to multiple prior exams dating back to at least 2021. Degenerative changes of the spine. Meds and therapies tried: Motegrity at bedtime, linzess 290 mcg and daily suppositories and enema as needed. Now having Bms daily. They have refills. Hemoglobin (g/dL) Date Value 06/12/2024 13.4 07/30/2021 15.3 Hematocrit (%) Date Value 06/12/2024 38.7 07/30/2021 47.4 WBC (k/uL) Date Value 06/12/2024 5.46 07/30/2021 12.52 Glucose (mg/dL) Date Value 06/12/2024 103 07/30/2021 87 Potassium (mmol/L) Date Value 06/12/2024 3.7 07/30/2021 4.3 Sodium (mmol/L) Date Value 06/12/2024 137 07/30/2021 129 Chloride (mmol/L) Date Value 06/12/2024 101 07/30/2021 91 CO2 (mmol/L) Date Value 06/12/2024 22 07/30/2021 21 Creatinine (mg/dL) Date Value 06/12/2024 0.51 07/30/2021 0.73 BUN (mg/dL) Date Value 06/12/2024 2 07/30/2021 13 Anion Gap (mmol/L) Date Value 06/12/2024 14 07/30/2021 17 Calcium (mg/dL) Date Value 07/30/2021 9.8 Calcium, Total (mg/dL) Date Value 06/12/2024 8.7 Protein, Total (g/dL) Date Value 06/11/2024 6.6 07/30/2021 7.9 Albumin (g/dL) Date Value 06/11/2024 3.6 07/30/2021 4.2 Bilirubin, Total (mg/dL) Date Value 06/11/2024 0.3 07/30/2021 0.5 Alkaline Phosphatase (U/L) Date Value 06/11/2024 67 07/30/2021 74 AST (U/L) Date Value 06/11/2024 9 07/30/2021 17 ALT (U/L) Date Value 06/11/2024 11 07/30/2021 17 Current Outpatient Medications Medication Sig Dispense Refill MOTEGRITY 2 mg tab tablet take 1 tablet by mouth once daily. 30 tablet 3 metoclopramide HCl (REGLAN) 5 mg tablet Take 1 po up to tid prn constipation (Patient taking differently: Take 5 mg by mouth three times a day as needed (constipation).) 10 tablet 2 trospium (SANCTURA) 20 mg tablet Take 1 tablet by mouth two times a day as needed (bladder spasm or urine leaking around catheter). 21 tablet 0 polyethylene glycol 3350 (MIRALAX) 17 gram packet Take 1 Packet by mouth once daily as needed for constipation. Dissolve dose in 4 - 8 ounces of liquid and take as directed. baclofen 5 mg tablet Take 1 tablet by mouth three times a day. 270 Each 3 linaCLOtide (LINZESS) 290 mcg capsule Take 1 po qd (Patient taking differently: Take 290 mcg by mouth once daily.) 90 capsule 2 bisacodyl (DULCOLAX) 10 mg supp Bisacodyl Active 10 MG rectally daily NEEDED for constipation omeprazole (PRILOSEC) 20 mg capsule Take 1 capsule by mouth daily before breakfast. 1/2 hr before meal. (Patient not taking: Reported on 04/05/2024) 30 capsule 5 No current facility-administered medications for this visit. ALLERGIES Allergen Reactions Contrast Dye Anaphylaxis Fd And C Blue No.1 Iodinated Contrast * Anaphylaxis Macrodantin [Nitrof* GI Upset Nitrofurantoin GI Upset Phenytoin GI SPECIFIC REVIEW OF SYMPTOMS All ROS [...] Negative All others negative PHYSICAL EXAMINATION BP 144/109[2nd BP reading 152/91[ Pulse 71 Temp (Src) 97 (Temporal) SpO2 99% General Appearance: Well appearing, alert, in no acute distress, well-hydrated, well nourished. In wheelchair Eyes: PERRLA, conjunctiva and sclera normal Oropharynx: Lips, tongue, and oral mucosa normal. There is no thrush or oral ulcers. Lungs:breath sounds clear to auscultation bilaterally, no crackles, rhonchi, or wheezes Heart: regular rate and rhythm, no murmurs or gallops. Abdomen: soft NT ND +BS Rectal exam: Deferred. Extremities: no cyanosis or edema Skin: no jaundice, no spider angiomas, no palmar erythema Neuro:alert IMPRESSION Jian Altamirano is a 58 year old male who presents today for follow up of neurogenic bowel f/u recent SBO- had NG tube got Mg and K and IVF in [facility]. Past medical history is significant for JASON, spina bifida, hydrocephalus s/p shunt, neurogenic bowel. Previously seen by Dr. Mar and Liz Villarreal. Motegrity at bedtime, linzess 290 mcg and daily suppositories and enema as needed. Now having Bms daily. They have refills. Motegrity has helped. Constipation due to neurogenic bowel SBO (small bowel obstruction) (HCC) PLAN -- continue bowel regimen- goal 1-2 soft BMs per day, pt has refills -- 2 Liters fluids per day, adequate electrolytes and check electrolytes with PCP -- avoid UTIs -- last colonoscopy in 2020 tortuous atonic colon Follow up as needed Nayely Nazario M.D Staff Brake Tester, GI motility & pelvic floor clinic Department of Gastroenterology, nutrition & hepatology [facility] [place] [facility] I spent a total of 30 minutes on the date of the service which included preparing to see the patient, [id number] patient care, completing clinical documentation, obtaining and/or reviewing separately obtained history, performing a medically appropriate examination, counseling and educating the patient/family/caregiver, ordering medications, tests, or procedures, communicating with other HCPs (not separately reported), independently interpreting results (not separately reported), communicating results to the patient/family/caregiver, and care coordination (not separately reported). documented in this encounter [facility] 06-28-2024 Note HNO ID: [id number] Author: ANNA EID RN Service: ? Author Type: Registered Nurse Type: Progress Notes Filed: 06/28/2024 09:03 Note Text: [facility] POPULATION HEALTH NAVIGATION OUTREACH Action/FYI Patient Identified by Name and : Yes, via phone Reason for Outreach Attribution: Attribution review/confirmation Care Gap Reviewed:: Outreach Outcome/Action Unable to reach patient: Left message Population Health Navigation Workflow Attribution Payer: [place] Navigation Signature: Anna Eid RN June 28, 2024 9:02 AM [facility] 06-28-2024 History of Present illness Narrative [facility] POP[facility] NAVIGATION OUTREACH Action/FYI Patient Identified by Name and : Yes, via phone Reason for Outreach Attribution: Attribution review/confirmation Care Gap Reviewed:: Outreach Outcome/Action Unable to reach patient: Left message Population Health Navigation Workflow Attribution Payer: [place] Navigation Signature: Anna Eid RN June 28, 2024 9:02 AM documented in this encounter [facility] 06-28-2024 Note Patient Outreach ( AC) JIAN ALTAMIRANO ([id number]) 1965 M Date Time Provider Department 06/28/24 ANNA EID [facility] During your visit today, we recorded the following information about you: Anna Eid RN 06/28/2024 9:03 AM Signed [facility] POP[facility] HE[facility] NAVIGATION OUTREACH Action/FYI Patient Identified by Name and : Yes, via phone Reason for Outreach Attribution: Attribution review/confirmation Care Gap Reviewed:: Outreach Outcome/Action Unable to reach patient: Left message Population Health Navigation Workflow Attribution Payer: Chepe Skelton Signature: Anna Eid RN June 28, 2024 9:02 AM Allergies As of Date: 06/28/2024 Noted Allergy Reaction CONTRAST DYE 10/29/2010 10 - Anaphylaxis FD AND C BLUE NO.1 07/29/2006 IODINATED CONTRAST MEDIA 12/11/2020 10 - Anaphylaxis MACRODANTIN (NITROFURANTOIN MACRO*10/29/2010 8 - GI Upset NITROFURANTOIN 12/11/2020 8 - GI Upset PHENYTOIN 07/29/2006 Date Reviewed: 06/27/2024 Reviewed by: Daniella Garrett RN - Fully Assessed Reason for Visit: Population Health Navigation Outreach [[id number]] Cmt: Chepe Attributed Member- PCP Attribution Update Sent to [employer] Prescriptions as of 06/28/2024 - MOTEGRITY 2 mg tab tablet take 1 tablet by mouth once daily. - metoclopramide HCl (REGLAN) 5 mg tablet Take 1 po up to tid prn constipation - trospium (SANCTURA) 20 mg tablet Take 1 tablet by mouth two times a day as needed (bladder spasm or urine leaking around catheter). - polyethylene glycol 3350 (MIRALAX) 17 gram packet Take 1 Packet by mouth once daily as needed for constipation. Dissolve dose in 4 - 8 ounces of liquid and take as directed. - baclofen 5 mg tablet Take 1 tablet by mouth three times a day. - omeprazole (PRILOSEC) 20 mg capsule Take 1 capsule by mouth daily before breakfast. 1/2 hr before meal. - linaCLOtide (LINZESS) 290 mcg capsule Take 1 po qd - bisacodyl (DULCOLAX) 10 mg supp Bisacodyl Active 10 MG rectally daily NEEDED for constipation Meds Comments as of 11/01/2020: 11/01/2020 Pt's sister stating pt not taking Cipro at this time, completed course of atb. Matt Gutierrez Problem List As Of Date 06/28/2024 Noted Resolved Congenital hydrocephalus (HCC) [Q03.9] 02/02/2008 CP (CEREBRAL PALSY - INFANTILE) HEMIPLEGIA, CON*02/02/2008 05/22/2013 Myelodysplasia [EVC0331] 05/22/2013 Deformity of ankle and foot, acquired [...] of bowel [K59.89] 05/19/2023 Hypokalemia [E87.6] 05/19/2023 Bladder diverticulum [N32.3] 04/12/2024 Bladder stones [N21.0] 04/12/2024 Small bowel obstruction (HCC) [K56.609] 06/11/2024 Encounter Status:Closed by ANNA EID on 06/28/24 [facility] 06-27-2024 Miscellaneous Notes SITUATION: Long-Term routine visit completed today. sister also present during today's visit. patient reports the following: Allergies--reviewed Medications--reviewed current medications Falls--None BACKGROUND: Reason for Home Care: hannon management ASSESSMENT: SN greeted at door by caregiver. Upon entrance patient found in bed Patient appears in no acute distress. Patient/CG concerns verbalized today: no new concerns Vitals (see flow sheet for details): stable SN findings today: Pt laying in bed, sister is doing his bowel routine. Abdomen is soft and non tender with good bowel sounds. Sister reports that he had a large BM yesterday. hannon cath is draining slightly hazy light yellow urine. Sister reports that she irrigated catheter yesterday. Pt reports that he is comfortable. See intervention summary for education details. Patient demonstrated a need for further skilled SN services for chronic disease management & education and urinary catheter care. Current Discharge plan: recertification RECOMMENDATION: Next visit to focus on (be specific): hannon cath change due. documented in this encounter [facility] 06-27-2024 Patient's home Note SITUATION: Long-Term routine visit completed today. sister also present during today's visit. patient reports the following: Allergies--reviewed Medications--reviewed current medications Falls--None BACKGROUND: Reason for Home Care: hannon management ASSESSMENT: SN greeted at door by caregiver. Upon entrance patient found in bed Patient appears in no acute distress. Patient/CG concerns verbalized today: no new concerns Vitals (see flow sheet for details): stable SN findings today: Pt laying in bed, sister is doing his bowel routine. Abdomen is soft and non tender with good bowel sounds. Sister reports that he had a large BM yesterday. hannon cath is draining slightly hazy light yellow urine. Sister reports that she irrigated catheter yesterday. Pt reports that he is comfortable. See intervention summary for education details. Patient demonstrated a need for further skilled SN services for chronic disease management & education and urinary catheter care. Current Discharge plan: recertification RECOMMENDATION: Next visit to focus on (be specific): hannon cath change due. [facility] Work Phone: 06-25-2024 Instructions Yvette Gao APRN.CNP - 06/25/2024 2:58 PM EDT Continue the same medications. Follow-up with specialist next week, as planned. documented in this encounter [facility] 06-25-2024 History of Present illness Narrative This is a 58 year old male who presents today with: Patient presents with: Hospital Follow Up: [facility] 06/12/24 dx: SBO; has upcoming appt with motility HISTORY OF PRESENT ILLNESS: Jian Altamirano is a 58 year old male. Patient presents with: Hospital Follow Up: [facility] 06/12/24 dx: SBO; has upcoming appt with motility Pt presents today for hospital follow-up. HOSPITAL COURSE: He presented to [facility] ED on 06/06 with abdominal pain, emesis and fever to 38C. He was found to have a UTI which was treated with ceftriaxone and exchange of his indwelling urinary catheter. CT abdomen also showed SBO with a transition point in the mid-abdomen. An NGT was placed and he was made NPO. Gastrografin small bowel follow through on 06/07 showed no evidence of SBO but dilatation suggestive of ileus. He was transferred to [facility] on 06/11 at which time he had return of bowel function and had had 4/5 days of IV ceftriaxone. Repeat KUB showed no small bowel obstruction. The NGT was removed and a clear liquid diet was started. He tolerated a CLD well, with no nausea, vomiting or abdominal pain. On 06/12 his diet was further advanced to Gastrointestinal Soft diet, which he also tolerated well, without any nausea, vomiting or abdominal pain. He also completed his last dose of Ceftriaxone. He was therefore medically cleared for discharge back home with his sister who is his primary nurse healthcare manager. Discharged on 06/12. Refers daily regimen of multiple suppositories. Refers will do tap water enemas. Still taking the linzess. Uses the reglan when starts to have problems, and will start later tonight. Uses the motegrity. Refers that he did pass gas this morning. No n/v. No abdominal pain. Refers that he is having "some gurgling." Did have some cereal and a banana today. Has appt with motility provider next Tuesday. PAST MEDICAL HISTORY: PAST MEDICAL HISTORY 04/12/2024: Bladder stones No date: Bowel dysfunction No date: Constipation No date: Hydrocephalus (HCC) No date: Inguinal hernia Comment: left - imaging at [facility] No date: Sleep apnea No date: Spina bifida (HCC) No date: Urinary retention PAST SURGICAL HISTORY No date: CRTJ SHUNT [id number] TERMINUS 08/06/2021: EGD W/O [facility] SPEC VARICIES INJ No date: PAST SURGICAL HISTORY OF Comment: repair of hamstring No date: PAST SURGICAL HISTORY OF Comment: abdominal surgery in childhood ALLERGIES Contrast Dye, Fd And C Blue No.1, Iodinated Contrast Media, Macrodantin [Nitrofurantoin Macrocrystalline], Nitrofurantoin, and Phenytoin MEDICATIONS Current Outpatient Medications Medication Sig MOTEGRITY 2 mg tab tablet take 1 tablet by mouth once daily. metoclopramide HCl (REGLAN) 5 mg tablet Take 1 po up to tid prn constipation (Patient taking differently: Take 5 mg by mouth three times a day as needed (constipation).) trospium (SANCTURA) 20 mg tablet Take 1 tablet by mouth two times a day as needed (bladder spasm or urine leaking around catheter). polyethylene glycol 3350 (MIRALAX) 17 gram packet Take 1 Packet by mouth once daily as needed for constipation. Dissolve dose in 4 - 8 ounces of liquid and take as directed. baclofen 5 mg tablet Take 1 tablet by mouth three times a day. omeprazole (PRILOSEC) 20 mg capsule Take 1 capsule by mouth daily before breakfast. 1/2 hr before meal. (Patient not taking: Reported on 04/05/2024) linaCLOtide (LINZESS) 290 mcg capsule Take 1 po qd (Patient taking differently: Take 290 mcg by mouth once daily.) bisacodyl (DULCOLAX) 10 mg supp Bisacodyl Active 10 MG rectally daily NEEDED for constipation No current facility-administered medications for this visit. FAMILY HISTORY Problem Relation Age of Onset Allergies Father Cancer Brother lung cancer Asthma Sister other (head injury) Sister Stroke Other Arthritis Other Anesthesia Problems No Family History Social History Tobacco Use Smoking status: Never Smokeless tobacco: Never Substance Use Topics Alcohol use: No Drug use: No EXAM: BP 138/90 Pulse 82 Resp 16 SpO2 98% PHYSICAL EXAM: General Appearance: Well appearing, alert, in no acute distress, well-hydrated, well nourished.. Skin: Skin color, texture, turgor normal, no suspicious rashes or lesions. Head: Normocephalic, no masses, lesions, tenderness or abnormalities. Lungs: Lungs clear to auscultation. No wheezing, rhonchi, rales.. Heart: RRR without murmur, gallop, or rubs. No ectopy. Abdomen: Abdomen soft, non-tender. Bowel sounds normal. Neurologic: answers questions appropriately. ASSESSMENT/PLAN: 1. SBO (small bowel obstruction) (HCC) - ICD9: 560.9, ICD10: K56.609 Resolved. Continues to be diligent with bowel regimen. Has follow-up with motility next week. Discussed treatment plan and patient voices understanding. Patient's questions answered appropriately. Medications and potential side effects were discussed and patient voices understanding. Return to the office as scheduled or as needed for worsening/no improvement. Yvette Gao APRN.KAREN I spent a total of 25 minutes on the date of the service which included preparing to see the patient, [id number] patient care, completing clinical documentation, obtaining and/or reviewing separately obtained history, and performing a medically appropriate examination. documented in this encounter [facility] 06-20-2024 Miscellaneous Notes SITUATION: Long-Term routine visit completed today. sister also present during today's visit. patient reports the following: Allergies--reviewed Medications--reviewed current medications Falls--None BACKGROUND: Reason for Home Care: hannon catheter management ASSESSMENT: SN greeted at door by caregiver. Upon entrance patient found in chair Patient appears in no acute distress. Patient/CG concerns verbalized today: no special concerns. Vitals (see flow sheet for details): stable SN findings today: Pt sittign in w/c at kitchen table. He reports no discomfort from hannon catheter. It is draining slightly hazy ight yellow urine in good amounts. Pt/sister report that bowels have been moving well this past week, usually every day with use of suppositories and/or water enemas. Pt reports that he has been eating well. See intervention summary for education details. Patient demonstrated a need for further skilled SN services for urinary catheter care. Current Discharge plan: recertification RECOMMENDATION: Next visit to focus on (be specific): hannon cath assessment, overall assessment. documented in this encounter [facility] 06-20-2024 Patient's home Note SITUATION: Long-Term routine visit completed today. sister also present during today's visit. patient reports the following: Allergies--reviewed Medications--reviewed current medications Falls--None BACKGROUND: Reason for Home Care: hannon catheter management ASSESSMENT: SN greeted at door by caregiver. Upon entrance patient found in chair Patient appears in no acute distress. Patient/CG concerns verbalized today: no special concerns. Vitals (see flow sheet for details): stable SN findings today: Pt sittign in w/c at kitchen table. He reports no discomfort from hannon catheter. It is draining slightly hazy ight yellow urine in good amounts. Pt/sister report that bowels have been moving well this past week, usually every day with use of suppositories and/or water enemas. Pt reports that he has been eating well. See intervention summary for education details. Patient demonstrated a need for further skilled SN services for urinary catheter care. Current Discharge plan: recertification RECOMMENDATION: Next visit to focus on (be specific): hannon cath assessment, overall assessment. [facility] Work Phone: 06-18-2024 Miscellaneous Notes 06/18/24 3:04 PM - 3:13 PM SIPHONER called the pt.'s sister Lesli Bansal regarding SIPHONER visit and community resources for the pt. The pt.'s sister stated she could talk but driving to Radiation. SIPHONER discussed with the pt.'s sister regarding the pt.'s care and more help in the home. The pt.'s sister stated she was a Nurse and hurt before penitentiary. She stated she was 72 yrs old and has been caring for the pt. She stated that she cared for their parents and the home was left in a trust for the pt. She stated that her and her sister care for the pt. SIPHONER educated the pt.'s sister on [place] Home Care Waiver for an Aide/Homemaker, Home Delivered Meals, ER Medical Alert, home modifications. The pt.'s sister stated that she lives with the pt. and they have to make the pt.'s meals from scratch. She stated due to his bowels and that he was on a bowel regimen. She stated that her and her sister did not feel someone else could do this. The pt.'s sister stated they just needed the Nurse for his catheter. She stated that she had a lumpectomy on 05/23/24 and today was her first Radiation treatment and she only needs 5 treatments. She stated that the pt. has a Motility Dr. that the pt. sees. SIPHONER asked the pt.'s sister if they would like information on [place] [facility] Care Waiver and she stated that SIPHONER could mail some information on this to the home. The pt.'s sister stated that she did not understand why the pt. had [place] Medicaid and was to have Dual [place] and she though he would have [place] Medicaid. She stated that she plans to look into. SIPHONER provided the pt.'s sister with her name and phone number. The pt.'s sister stated she may need help regarding figuring out the pt.'s insurance. The pt.'s sister was driving and will follow-up. 06/18/24 SIPHONER mailed information on [facility] Care Waiver to the pt.'s home. documented in this encounter [facility] 06-18-2024 Patient's home Note 06/18/24 3:04 PM - 3:13 PM SIPHONER called the pt.'s sister Lesli Bansal regarding SIPHONER visit and community resources for the pt. The pt.'s sister stated she could talk but driving to Radiation. SIPHONER discussed with the pt.'s sister regarding the pt.'s care and more help in the home. The pt.'s sister stated she was a Nurse and hurt before penitentiary. She stated she was 72 yrs old and has been caring for the pt. She stated that she cared for their parents and the home was left in a trust for the pt. She stated that her and her sister care for the pt. SIPHONER educated the pt.'s sister on [place] Home Care Waiver for an Aide/Homemaker, Home Delivered Meals, ER Medical Alert, home modifications. The pt.'s sister stated that she lives with the pt. and they have to make the pt.'s meals from scratch. She stated due to his bowels and that he was on a bowel regimen. She stated that her and her sister did not feel someone else could do this. The pt.'s sister stated they just needed the Nurse for his catheter. She stated that she had a lumpectomy on 05/23/24 and today was her first Radiation treatment and she only needs 5 treatments. She stated that the pt. has a Motility Dr. that the pt. sees. SIPHONER asked the pt.'s sister if they would like information on [place] Care Waiver and she stated that SIPHONER could mail some information on this to the home. The pt.'s sister stated that she did not understand why the pt. had [place] Medicaid and was to have [place] and she though he would have [place] Medicaid. She stated that she plans to look into. SIPHONER provided the pt.'s sister with her name and phone number. The pt.'s sister stated she may need help regarding figuring out the pt.'s insurance. The pt.'s sister was driving and will follow-up. 06/18/24 SIPHONER mailed information on [facility] Care Waiver to the pt.'s home. [facility] Work Phone: 06-17-2024 Miscellaneous Notes SITUATION: Long-Term SOC visit completed today. Sister also present during today's visit. patient and caregiver reports the following: Allergies--reviewed Medications--full medication reconciliation completed Falls--None DME-Reviewed and added to chart BACKGROUND: Discharged/Referral from acute care hospital on 06/12/24 following treatment for Neurogenic bladder. Pertinent referral information or other diagnoses that may affect plan of care: Congenital Hydrocephalus (Hcc) Myelodysplasia Spina Bifida (Hcc) Neurogenic Bladder Benign Prostatic Hyperplasia With Urinary Retention Urinary Retention Gastroparesis Bladder Diverticulum Bladder Stones ASSESSMENT: SN greeted at door by caregiver. Upon entrance patient found in wheelchair Patient appears in no acute distress. Patient lives at home with sister. Home environment: dirty and cluttered. SOC booklet reviewed & completed with patient and caregiver and consent obtained for Home Care services. Patient/CG concerns verbalized today: none Vitals (see flow sheet for details): stable SN findings today: A&Ox4. Nonlabored breathing on room air; lungs clear throughout. HRR. BSPx4; patient has frequent constipation. Patient has suppository inserted during SNV. Patient denies bowel incontinence. Hannon catheter in place, draining clear, yellow without complications. SN educated patient and family on s/s of UTI and UTI prevention, including increased fluid intake and keeping catheter bag in a dependent position. Patient with recent UTI which was treated with IV ATB in the hospital. No edema noted. Skin intact. SN reviewed all medications. SN made a list of medications in admission book for patient. Patient's sisters manage his medications by handing the patient his medications when they are due. Patient navigates his home in a wheelchair. Patient transfers with gait belt, one and uses a "somali crab cane" in each hand, which are are wooden and homemade with three legs. SN educated patient on fall precautions. SN placing a [facility] referral for poor living conditions. Home is dirty, dark and cluttered. SN educated patient and family on q2h position changes to prevent skin breakdown. For this admission, patient went to [facility] on 06/06 and was then transferred to . See intervention summary for education details and skills performed. Plan of care and visit frequency established with patient and caregiver and plan of care agreed upon. Patient demonstrated a need for further skilled SN services for chronic disease management & education and urinary catheter care. RECOMMENDATION: Visit Frequency: 06/17, 06/20, 06/27, 07/04, 08/01, 08/14 Need for additional services: Patient agreeable to N/A referrals. Patient declined N/A referrals. Additional concerns to be followed up on: NONE Next visit to focus on (be specific): UTI prevention, constipation documented in this encounter [facility] 06-17-2024 Patient's home Note SITUATION: Long-Term SOC visit completed today. Sister also present during today's visit. patient and caregiver reports the following: Allergies--reviewed Medications--full medication reconciliation completed Falls--None DME-Reviewed and added to chart BACKGROUND: Discharged/Referral from acute [facility] on 06/12/24 following treatment for Neurogenic bladder. Pertinent referral information or other diagnoses that may affect plan of care: Congenital Hydrocephalus (Hcc) Myelodysplasia Spina Bifida (Hcc) Neurogenic Bladder Benign Prostatic Hyperplasia With Urinary Retention Urinary Retention Gastroparesis Bladder Diverticulum Bladder Stones ASSESSMENT: SN greeted at door by caregiver. Upon entrance patient found in wheelchair Patient appears in no acute distress. Patient lives at home with sister. Home environment: dirty and cluttered. SOC booklet reviewed & completed with patient and caregiver and consent obtained for Home Care services. Patient/CG concerns verbalized today: none Vitals (see flow sheet for details): stable SN findings today: A&Ox4. Nonlabored breathing on room air; lungs clear throughout. HRR. BSPx4; patient has frequent constipation. Patient has suppository inserted during SNV. Patient denies bowel incontinence. Hannon catheter in place, draining clear, yellow without complications. SN educated patient and family on s/s of UTI and UTI prevention, including increased fluid intake and keeping catheter bag in a dependent position. Patient with recent UTI which was treated with IV ATB in the hospital. No edema noted. Skin intact. SN reviewed all medications. SN made a list of medications in admission book for patient. Patient's sisters manage his medications by handing the patient his medications when they are due. Patient navigates his home in a wheelchair. Patient transfers with gait belt, one and uses a "somali crab cane" in each hand, which are are wooden and homemade with three legs. SN educated patient on fall precautions. SN placing a [facility] [employer] referral for poor living conditions. Home is dirty, dark and cluttered. SN educated patient and family on q2h position changes to prevent skin breakdown. For this admission, patient went to [facility] on 06/06 and was then transferred to . See intervention summary for education details and skills performed. Plan of care and visit frequency established with patient and caregiver and plan of care agreed upon. Patient demonstrated a need for further skilled SN services for chronic disease management & education and urinary catheter care. RECOMMENDATION: Visit Frequency: 06/17, 06/20, 06/27, 07/04, 08/01, 08/14 Need for additional services: Patient agreeable to N/A referrals. Patient declined N/A referrals. Additional concerns to be followed up on: NONE Next visit to focus on (be specific): UTI prevention, constipation [facility] Work Phone: 06-16-2024 Telephone encounter Note Patient accepted and confirmed home health start of care (SOC) for 06/17/24. Visit time established. [facility] Work Phone: 06-16-2024 Miscellaneous Notes Patient accepted and confirmed home health start of care (SOC) for 06/17/24. Visit time established. documented in this encounter [facility] 06-15-2024 Telephone encounter Note [facility] contacted sister for start of care. [facility] 06-15-2024 Miscellaneous Notes [facility] contacted sister for start of care. Will wait to hear back from [facility] Home Care. Placed both Do you want to try and place a referral to our [facility] to see if they will be able to accept patient? Routing to to see if she can help with C referral. Can refer to another [facility] Pt's sister Lesli calling, pt was d/c from [facility] last PM. She is asking if pcp wants to do any FU labs, states pt's sodium level was low. She reports pt was having small diarrhea stools still last pm. She states pt was due for re certification for HH at [facility] but pt was in the hospital at the time so it didn't get completed & now they will not see him. Lesli will schedule a FU with ledy Alberts. Lesli states she is feeling overwhelmed at this time. States she will start cancer treatment for herself next week. Hosp FU appt scheduled 06/25/24 with Francisca De La Vega is unable to bring pt next week as she will be in [place] every day getting radiation. Pt's next cath change is due 07/07/24. Felicita Kennedy LPN Needs discharge visit, 40 minutes with one of us. Do we know when next change is needed.? Christiano with [facility] calling to update PCP that pt's Home Health with [facility] ended this past Tuesday. Christiano states patient was getting care from them for catheter care and changes. Christiano states patient will need new Home Health agency to continue this care, if needed, and wanted PCP to be aware. Melodie Kim RN documented in this encounter [facility] 06-15-2024 Telephone encounter Note Clifford Estes MD Thank you for the referral for Jian Altamirano. [facility] spoke with the patient and they are agreeable to a Start of Care on 06/17/24. Please let us know if you are agreeable to this date. If we do not hear back, we will continue with this planned date. Thank you, Chyna Newell LPN [facility] Work Phone: 06-15-2024 Miscellaneous Notes Clifford Estes MD Thank you for the referral for Jian Altamirano. [facility] spoke with the patient and they are agreeable to a Start of Care on 06/17/24. Please let us know if you are agreeable to this date. If we do not hear back, we will continue with this planned date. Thank you, Chyna Newell LPN documented in this encounter [facility] 06-15-2024 Telephone encounter Note Date/Time: 06/15/2024 10:06 AM Spoke with sister Ballesteros @ phone #: [phone] - Preferred # for contact: [phone] Have you received help from a home care company in the last 60 days? [facility]. (This nurse called [facility] and patient was discharged June 12) Are you agreeable to [facility] services? Yes. What address will we be seeing you at? [address] [place] [id number] Do you have any upcoming appointments or things we need to schedule around? June 25 and has appointments. Do you have a teachable CG or can you manage your care independently? Sister Lesli. [facility] Work Phone: 06-15-2024 Miscellaneous Notes Date/Time: 06/15/2024 10:06 AM Spoke with sister Ballesteros @ phone #: [phone] - Preferred # for contact: [phone] Have you received help from a home care company in the last 60 days? [facility] [employer]. (This nurse called [facility] and patient was discharged June 12) Are you agreeable to [facility] services? Yes. What address will we be seeing you at? [address] [address] Do you have any upcoming appointments or things we need to schedule around? June 25 and has appointments. Do you have a teachable CG or can you manage your care independently? Sister Lesli. documented in this encounter [facility] 06-14-2024 History of Present illness Narrative Transition Care Management (TCM) Initial Outreach PCP Update / Actionable Items N/A - No specialty updates needed Patient Source: In-Network Discharge Initial outreach: [facility]RIC - non-response initial outreach Outreach Summary: Appts:06/25-PCP; 07/02-GI Spoke with pt's sister Darrion-Validated in chart Pt denies questions or concerns regarding medications, self care, and discharge instructions. Pt has follow up appointments in place and is agreeable with recommended plan of care. Pt feeling better since discharge Denies any concerning symptoms/needs at this time Denies SOB, CP, Fever, Nausea, Vomiting, Abdominal pain BM-had BM today. Soft. Pt to call PCP/GenSurg for any new/worsening symptoms. Patient discharged from [facility] Discharge date: 06/12/24 Admitted for: SBO Readmission Risk: Value-Based Contract: Chepe ERICKSON Contact: Contact made with patient: Yes Hi, my name is Ace Sullivan RN and I am calling from the [facility] on behalf of your Primary Care Provider, Clifford Estes MD. I understand you were recently in the hospital, so I am calling to check in with you to ensure you are feeling well now that you are home. May I ask you a few questions related to your hospital stay and well-being? Yes Spoke to: SisterDarrion Validation: Validated the person spoken to is actively involved in the patient's care. The patient was identified by Name and Date of . Symptoms: Are you feeling about the same, better or worse since leaving the hospital? Better Medications: Do you have any questions about taking your medications, including which medications you should be on, or do you need refills on your medications? No Medication Review: Declined at this time per patient preference Discharge Instructions: Your Discharge Instructions / After Visit Summary (AVS) are important in guiding you through the recovery process. Do you have any questions related to your discharge instructions? No Home Care: Were you discharged with home care? No Equipment: Do you have all the necessary equipment and supplies needed at your home? Yes The patient verbalizes understanding the use of the equipment and supplies Social: We would like to make sure you have what you need so that your basics needs are met - including your personal safety, food, housing and medications. Would you like to speak with a social work rock climbing team member to help give you support for any of these needs? No It can be normal to feel anxious or down during a time like this. Would you like to talk to a mental health professional about how you have been feeling? No Action Taken: No needs verbalized. No action required. Follow-Up Appointment: [Appointment / TCM Follow-up within 14 days] I would like to help you schedule a hospital follow-up virtual or telephone visit with your PCP. This is a great way for you to connect with your provider to ensure you have safely transitioned home. If you are agreeable, I will send your request to a wirer street light who will contact and assist you with that appointment. This will give you an opportunity to ask any questions or address any concerns you may have with your PCP. Inform the patient that if they have any questions or concerns prior to that appointment, to call their PCP's office right away. Appointment Action: No action required; patient already has appointment scheduled. Education Patient and family educated on issues/questions related to reason for admission, transition of care topics, and follow-up needed upon discharge. Targets addressed / completed during outreach: N/A Outreach Outcome: Continue FABRIC TCM follow-up Care Management partners utilized: N/A Ace Sullivan RN June 14, 2024 3:25 PM documented in this encounter [facility] 06-13-2024 Telephone encounter Note PCP placed new referral to other [facility] agencies. Will await their approval of admit regarding catheter care. Stephanie Enrique MA [facility] 06-13-2024 Miscellaneous Notes PCP placed new referral to other [facility] agencies. Will await their approval of admit regarding catheter care. Stephanie Enrique MA Received a call from [facility] about this patient. He was admitted at [facility] and [facility] discontinued seeing the patient. Patient was discharged from [facility] with assumption that [facility] would pick services back up. They decline to initiate services for this patient again. Due to non compliance of patient and family. New home health services will need to be established with a new Home Health Agency. documented in this encounter [facility] 06-13-2024 Telephone encounter Note Will wait to hear back from [facility] Home Care. [facility] 06-13-2024 Telephone encounter Note Placed both [facility] 06-13-2024 Telephone encounter Note Do you want to try and place a referral to our [facility] to see if they will be able to accept patient? [facility] 06-13-2024 Telephone encounter Note Routing to to see if she can help with HHC referral. [facility] 06-13-2024 Telephone encounter Note Can refer to another [facility] 06-13-2024 Telephone encounter Note Pt's sister Lesli calling, pt was d/c from [facility] last PM. She is asking if pcp wants to do any FU labs, states pt's sodium level was low. She reports pt was having small diarrhea stools still last pm. She states pt was due for re certification for HH at [facility] but pt was in the hospital at the time so it didn't get completed & now they will not see him. Lesli will schedule a FU with ledy Alberts. Lesli states she is feeling overwhelmed at this time. States she will start cancer treatment for herself next week. Hosp FU appt scheduled 06/25/24 with Lali De La Vegaz is unable to bring pt next week as she will be in [place] every day getting radiation. Pt's next cath change is due 07/07/24. Felicita Kennedy LPN [facility] 06-13-2024 Telephone encounter Note Needs discharge visit, 40 minutes with one of us. Do we know when next change is needed.? [facility] 06-13-2024 Telephone encounter Note Received a call from [facility] about this patient. He was admitted at [facility] and [facility] discontinued seeing the patient. Patient was discharged from [facility] with assumption that [facility] would pick services back up. They decline to initiate services for this patient again. Due to non compliance of patient and family. New home health services will need to be established with a new Home Health Agency. [facility] 06-13-2024 Telephone encounter Note Christiano with [facility] calling to update PCP that pt's Home Health with [facility] ended this past Tuesday. Christiano states patient was getting care from them for catheter care and changes. [facility] states patient will need new Home Health agency to continue this care, if needed, and wanted PCP to be aware. Melodie Kim RN [facility] 06-11-2024 Note [facility] Medical Records Department [address] [place] [id number] Discharge Summary 06/11/24 1435 MR#: [id number] Acct: [id number] Name: JIAN ALTAMIRANO Rep #: [id number] : [id number] From: Conchita Rankin MD PCP: Dr. Clifford Estes MD Status:DIS IN [place] [facility] [id number] Providers Date of Admission: 06/06/24 Date of Discharge: 06/11/24 Primary Care Physician: Dr. Clifford Estes MD Consultations 06/06/24 17:19 Consult: General Surgery Routine Consulting Provider: Myke Diego Reason for Consult: Bowel obstruction EMERGENT Consult: No Notified: Yes Date Notified: 06/06/24 Time Notified: 15:42 Method of Notification: Verbal 06/07/24 14:27 Consult: Infectious Disease Routine Consulting Provider: Juan Miguel Castro Reason for Consult: cavitary lung lesion EMERGENT Consult: No Notified: Yes Date Notified: 06/07/24 Time Notified: 14:27 Method of Notification: Text Reason For Visit: BOWEL OBSTRUCTION, COMPLICATED UTI,LUNG CAVITARY N Diagnosis Discharge Diagnosis (1) Complete obstruction of small intestine: Status: Acute Code(s): K56.601 - Complete intestinal obstruction, unspecified as to cause Plan #Small bowel obstruction * CT of the abdomen done showed complete small bowel obstruction on admission. * NG tube in situ. General surgery on board. * Continue gentle hydration with IV fluids. continue n.p.o. * Accepted at [facility] pending bed availability, though since he is not a surgical candidate, there may be limited utility in transferring him. * KUB yesterday showed dilated small bowel consistent with small bowel obstruction, slightly improved as compared to prior exam. * management as per general surgery * continue gentle hydration with iVF. #Acute complicated UTI * Has a history of chronic indwelling Hannon catheter with neurogenic bladder * urine culture growing E coli sensitive to ceftriaxone * now on IV ceftriaxone- day 2 of 5. * #Left lower lobe cavitary lesion with layering fluid * this was an incidental finding of CT abdomen and pelvis, concerning for fungal vs mycobacterial infection. However, there was low suspicion for mycobacterial infection as he had not had any weight loss or night sweats. * started on IV vancomycin and meropenem empirically * ID on board and stopped antibiotics yesterday due to no evidence of infection. * #Acute on chronic hyponatremia: * Sodium today is 135. * resolved * #Hypokalemia: Potassium is 2.9. Will replace and trend. Will check magnesium also. #History of normal pressure hydrocephalus * has a history of functional paraplegia * has a SOFT SHOE DANCER shunt in place * n baclofen, but that is now on hold due to patient having NG tube in situ. * #DVT prophylaxis: lovenox * Medications at Discharge Home Medications baclofen 5 mg tablet 5 mg PO TID MUSCLE SPASMS 07/21/22 linaclotide 290 mcg capsule (Linzess) 290 mcg PO DAILY IRRITABLE BOWELS 08/09/23 prucalopride 2 mg tablet (Motegrity) 2 mg PO DAILY CHRONIC CONSTIPATION 08/09/23 metoclopramide HCl 5 mg tablet (Reglan) 5 mg PO Q6H PRN nausea and vomiting 09/20/23 bisacodyl 10 mg rectal suppository 10 mg [place] DAILY PRN Constipation #0 ea 09/22/23 Hospital Course Operations None Procedures None Summary of Care Provided Minutes Spent on Discharge: 55 Hospital Course: Patient is a 58-year-old male with an extensive past medical history as outlined which includes NPH with functional paraplegia and SOFT SHOE DANCER shunt in place and previous history of recurrent small bowel obstruction. He was admitted through the ED on 06/06/2024 with a complaint of abdominal pain and nausea as well as dry heaving and subsequent nausea and vomiting. He also had a mild fever 100.8. He had had abdominal distention and abdominal pain though he had had a bowel movement during the day. Urinalysis showed 4+ bacteria and CT of the abdomen and pelvis showed a left lower lobe cavitary lesion with layering fluid concerning for possible fungal versus mycobacterial infection with cystic neoplasm less likely and he also had a mid small bowel obstruction with transition to decompressed bowel in the central abdomen and no evidence of perforation. She was started on IV ceftriaxone for UTI and NG tube was placed. Plan was to transfer to [facility] in light of his complicated history and presence of SOFT SHOE DANCER shunt but there was no bed available so he was admitted to [facility] and managed for small bowel obstruction as well as possible cavitary pneumonia. General surgery was also consulted as well as ID. Patient antibiotics were broadened to IV vancomycin and meropenem. ID reviewed him and did not think that he had any evidence of infection for the cavitary lesion and it was an incidental finding so vancomycin and meropenem were discontinued. Patient was placed on IV ceftr (more content not included)... [facility] 06-07-2024 History of Present illness Narrative POPULATION HEALTH NAVIGATION OUTREACH Action/FYI Patient is on [facility] CURRENT ROSTER Workbench list for below and needs appointment to address: Depression Screening Anxiety Screening Hepatitis C Screening Shingrix Vaccine(1 of 2) Covid-19 Vaccine( season) No results found for: "HBA1C" Patient due for: Medicare Annual Wellness Visit Did not contact patient - previously patient declined scheduling. Reason for Outreach Care Gap/HCC or Scheduling Wellness Visits Care Gaps due: Medicare Annual Wellness Visit Patient Contacted: Unable or unnecessary to reach patient: HCC related Navigation Signature: Beth Randall MA June 07, 2024 8:48 AM documented in this encounter [facility] 06-06-2024 Telephone encounter Note Patient's request for medication is as follows: Requested Prescriptions Pending Prescriptions Disp Refills metoclopramide HCl (REGLAN) 5 mg tablet 10 tablet 2 Sig: Take 1 po up to tid prn constipation Please send this med to [facility] in [place], [place]. [facility] 06-06-2024 Miscellaneous Notes Patient's request for medication is as follows: Requested Prescriptions Pending Prescriptions Disp Refills metoclopramide HCl (REGLAN) 5 mg tablet 10 tablet 2 Sig: Take 1 po up to tid prn constipation Please send this med to [facility] in [place], [place]. documented in this encounter [facility] 05-08-2024 History of Present illness Narrative HPI: 58 M w spina bifida, shunted hydrocephalus, NGB/B Large bladder stone in R posterior tic + bl bladder containing hernias with stone on left, stone within bladder lumen Now sp open cystolithotomy and bladder diverticulectomy 04/12 Here for follow up and cath exchange From urinary perspective doing great Had issues with constipation post op This is improving PAST MEDICAL HISTORY Diagnosis Date Bladder stones 04/12/2024 Bowel dysfunction Constipation Hydrocephalus (HCC) Inguinal hernia left - imaging at [facility] Sleep apnea Spina bifida (HCC) Urinary retention PAST SURGICAL HISTORY Procedure Laterality Date CRTJ SHUNT [id number] TERMINUS EGD W/O BRSH SPEC VARICIES INJ 08/06/2021 PAST SURGICAL HISTORY OF repair of hamstring PAST SURGICAL HISTORY OF abdominal surgery in childhood Social History Tobacco Use Smoking status: Never Smokeless tobacco: Never Substance Use Topics Alcohol use: No Drug use: No Current Outpatient Medications on File Prior to Visit Medication Sig metoclopramide HCl (REGLAN) 5 mg tablet Take 1 po up to tid prn constipation trospium (SANCTURA) 20 mg tablet Take 1 tablet by mouth two times a day as needed (bladder spasm or urine leaking around catheter). polyethylene glycol 3350 (MIRALAX) 17 gram packet Take 1 Packet by mouth once daily as needed for constipation. Dissolve dose in 4 - 8 ounces of liquid and take as directed. prucalopride (MOTEGRITY) 2 mg tab tablet Take 1 tablet (2 mg) by mouth once daily. baclofen 5 mg tablet Take 1 tablet by mouth three times a day. omeprazole (PRILOSEC) 20 mg capsule Take 1 capsule by mouth daily before breakfast. 1/2 hr before meal. (Patient not taking: Reported on 04/05/2024) linaCLOtide (LINZESS) 290 mcg capsule Take 1 po qd bisacodyl (DULCOLAX) 10 mg supp Bisacodyl Active 10 MG RC NEEDED 0 January 24, 2022 10:15am OTC No current facility-administered medications on file prior to visit. ROS: Constitutional: negative Gastrointestinal: negative PHYSICAL EXAM: There were no vitals taken for this visit. GENERAL: Wnl nutrition, no deformities, healthy appearing ABDOMEN: Soft, nontender, nondistended, no masses. Incision well healed GENITOURINARY: MALE EXAM: ciurc phallus Catheter exchanged by me under usual sterile conditions Catheter irrigated 16F hannon DATA/OR LABS TO BE REVIEWED: (Simple=1 data point; Complex= 2 or more) No results found for: "PSA" Creatinine (mg/dL) Date Value 04/13/2024 0.74 04/12/2024 0.83 04/03/2024 0.69 10/25/2023 0.70 10/12/2023 0.68 07/30/2021 0.73 10/02/2020 0.72 09/11/2020 0.68 08/22/2018 0.76 05/22/2013 0.53 No results found for: "TESTOST" A/P: 58 M w SB sb diverticulectomy and cystolithalopaxy Follow up in 1 year w rbus, bmp, cystatin C Monthly cath exchanges Regular irrigations Brea Florentino MD documented in this encounter [facility] 04-24-2024 History of Present illness Narrative TRANSITION CARE MANAGEMENT (TCM) FOLLOW-UP NOTE Provider Action/FYI Patient did not answer [employer] texts Spoke with patient States he is doing "alright" Sitting outside getting some air Feeling "pretty darn good" Was having constipation but Having normal bowel movements Incision appears normal Has post op appt 05/08/2024 No mention of any further new or worsening symptoms Denies any needs/concerns Advised to notify PCP for recurring, new/worsening symptoms. Verbalized understanding. Patient identified by name and date of : YES Spoke to patient Discharge Network Status: In-Network Discharge Summary: Discharged from [facility] on 04/13/2024 Admitted for bladder diverticulum Ophelia John RN April 24, 2024 1:41 PM documented in this encounter [facility] 04-18-2024 Telephone encounter Note Will watch [facility] 04-18-2024 Miscellaneous Notes Will watch Qi from [facility] called to report patient recent blood pressure. Readings were supine. 148/94 Left arm 138/88 right arm with pulse of 95. Patient denies any headaches or other related symptoms to blood pressure. Daughter feels blood pressure is related to his bowel issues. Qi did explain need of staying well hydrated. documented in this encounter [facility] 04-18-2024 Telephone encounter Note Qi from [facility] called to report patient recent blood pressure. Readings were supine. 148/94 Left arm 138/88 right arm with pulse of 95. Patient denies any headaches or other related symptoms to blood pressure. Daughter feels blood pressure is related to his bowel issues. Qi did explain need of staying well hydrated. [facility] 04-17-2024 Telephone encounter Note Patient's sister notified. Verbalized understanding. [facility] 04-17-2024 Miscellaneous Notes Patient's sister notified. Verbalized understanding. er Sister calls with the following issue: Sister reports pt is post-op for divericulectomy of bladder.(Surg 04/12). Sister reports pt had a bowel movement the day after surgery before he was discharged from hospital. Sister reports yesterday is the only other time he has had anything and that was a lot of colored water and 3 tiny stools. Sister reports they have a daily regimen of two suppositories and enema. Pt's stomach is distended and there are no bowel sounds today. Sister reports pt is passing gas. Pt is not acting sick and does not have a fever. Sister reports she has done all the motility exercises that were taught by the bowel specialist. Sister reports she has not given pt any laxatives yet. Sister is asking what provider would recommend. Should she be more patient, take pt to ER, give him laxative. Sister reports she has tried to call Dr. Nazario but has not heard anything back and is hard to get a message back. Please review and advise. Lily Noonan LPN documented in this encounter [facility] 04-17-2024 Telephone encounter Note er [facility] 04-17-2024 Telephone encounter Note Sister calls with the following issue: Sister reports pt is post-op for divericulectomy of bladder.(Surg 04/12). Sister reports pt had a bowel movement the day after surgery before he was discharged from hospital. Sister reports yesterday is the only other time he has had anything and that was a lot of colored water and 3 tiny stools. Sister reports they have a daily regimen of two suppositories and enema. Pt's stomach is distended and there are no bowel sounds today. Sister reports pt is passing gas. Pt is not acting sick and does not have a fever. Sister reports she has done all the motility exercises that were taught by the bowel specialist. Sister reports she has not given pt any laxatives yet. Sister is asking what provider would recommend. Should she be more patient, take pt to ER, give him laxative. Sister reports she has tried to call Dr. Nazario but has not heard anything back and is hard to get a message back. Please review and advise. Lily Noonan LPN [facility] 04-16-2024 Telephone encounter Note Patient's request for medication is as follows: Requested Prescriptions Pending Prescriptions Disp Refills metoclopramide HCl (REGLAN) 5 mg tablet 10 tablet 2 Sig: Take 1 po up to tid prn constipation Pleases send this med to [facility] in [place], [place] on [address] Please change the quantity on the med. He may need 30 tablets instead of 10. [facility] 04-16-2024 Miscellaneous Notes Patient's request for medication is as follows: Requested Prescriptions Pending Prescriptions Disp Refills metoclopramide HCl (REGLAN) 5 mg tablet 10 tablet 2 Sig: Take 1 po up to tid prn constipation Pleases send this med to [facility] in [place], [place] on [address] Please change the quantity on the med. He may need 30 tablets instead of 10. documented in this encounter [facility] 04-11-2024 Telephone encounter Note iQ with Home Health informed and verbalized understanding. Wilfredo Monet MA [facility] 04-11-2024 Miscellaneous Notes Qi with Home Health informed and verbalized understanding. Wilfredo Monet MA Ok. Can we have someone recheck bp in next week and call it to us. Qi nurse @ [facility] calling to let provider know patient BP 140/96 @ nurse visit. No recheck done. Patient was recertified for nursing. They will see patient 1 x/month for two months for Hannon cath changes. Three PRN visits added if issue with catheter. Dalia Floyd RN documented in this encounter [facility] 04-11-2024 Telephone encounter Note Ok. Can we have someone recheck bp in next week and call it to us. [facility] 04-11-2024 Telephone encounter Note Qi nurse @ [facility] calling to let provider know patient BP 140/96 @ nurse visit. No recheck done. Patient was recertified for nursing. They will see patient 1 x/month for two months for Hannon cath changes. Three PRN visits added if issue with catheter. Dalia Floyd RN [facility] 04-10-2024 History of Present illness Narrative Consultation requested by Dr. Brea Florentino for an opinion regarding bilateral inguinal hernias. My final recommendations will be communicated back to the requesting physician by way of shared medical record or letter via US mail. Jian Altamirano is a 58 year old male who presents with bilateral inguinal hernias in the setting of spina bifida. He has a bladder diverticulum and stone and is scheduled to have the stone removed and the diverticulum resection this week. On exam he has bilateral reducible inguinal hernias. We discussed that this is not an ideal time to fix these hernias with a mesh-based repair given the likely contamination from his bladder. I will plan to see him later on to discuss elective inguinal hernia repair in a clean setting. I have seen and evaluated the patient and discussed the case with the resident physician. I agree with the assessment and plan as documented in the resident s note including a ROS that was reviewed and negative other than what was indicated in our notes. Patient consented for study? 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 Per chart review, the patient most recently presented to see Dr. Florentino (Urology) in outpatient setting on 02/21/24 for evaluation of recurrent UTI. At that time, the patient's sister (primary caregiver) noted difficulty flushing urethral catheter with recurrent UTIs. Imaging was obtained revealing curvilinear bladder stones with large posterior right bladder diverticulum containing stone. Additionally noted was bilateral inguinal hernias with herniation of bladder into inguinal rings, with stone contained within left side. Recommendation per Urology was to proceed with open cystolitholapaxy and diverticulectomy which is currently scheduled for 04/12/24. He was referred to Hernia Surgery for evaluation in advance of this procedure to inquire about repair of bilateral inguinal hernias at time of scheduled procedure with Urology. He presents today with his sister who confirms a several year history of bilateral inguinal hernias which have been asymptomatic. She denies the patient complaining of pain or the hernias increasing in apparent size. She confirms the patient being on a significant bowel regimen per Gastroenterology with prior admissions for ileus. She denies admission for small bowel obstruction secondary to bowel within inguinal hernias. Relevant previous operations include: - SOFT SHOE DANCER shunt insertion - in infancy - SOFT SHOE DANCER shunt revision - age 19 No history of Psychiatric Disorders or Opioid Use Totally dependent No employment None Spina bifida, hydrocephalus N/A PAST MEDICAL HISTORY Diagnosis Date Bowel dysfunction Constipation Hydrocephalus (HCC) Inguinal hernia left - imaging at [facility] Sleep apnea Spina bifida (HCC) Urinary retention PAST SURGICAL HISTORY Procedure Laterality Date CRTJ SHUNT [id number] TERMINUS EGD W/O BRSH SPEC VARICIES INJ 08/06/2021 PAST SURGICAL HISTORY OF repair of hamstring PAST SURGICAL HISTORY OF abdominal surgery in childhood Social History Tobacco Use Smoking status: Never Smokeless tobacco: Never Substance Use Topics Alcohol use: No Drug use: No Additional social history not relevant to the patient's HPI FAMILY HISTORY Problem Relation Age of Onset Allergies Father Cancer Brother lung cancer Asthma Sister other (head injury) Sister Stroke Other Arthritis Other Anesthesia Problems No Family History Additional family history not relevant to the patient's HPI ALLERGIES Allergen Reactions Contrast Dye Anaphylaxis Fd And C Blue No.1 Iodinated Contrast * Anaphylaxis Macrodantin [Nitrof* GI Upset Nitrofurantoin GI Upset Phenytoin Current Outpatient Medications Medication Sig Dispense Refill prucalopride (MOTEGRITY) 2 mg tab tablet Take 1 tablet (2 mg) by mouth once daily. 30 tablet 3 metoclopramide HCl (REGLAN) 5 mg tablet Take 1 po up to tid prn constipation 10 tablet 2 baclofen 5 mg tablet Take 1 tablet by mouth three times a day. 270 Each 3 omeprazole (PRILOSEC) 20 mg capsule Take 1 capsule by mouth daily before breakfast. 1/2 hr before meal. (Patient not taking: Reported on 04/05/2024) 30 capsule 5 linaCLOtide (LINZESS) 290 mcg capsule Take 1 po qd 90 capsule 2 bisacodyl (DULCOLAX) 10 mg supp Bisacodyl Active 10 MG RC NEEDED 0 January 24, 2022 10:15am OTC No current facility-administered medications for this visit. REVIEW OF SYSTEMS The remainder of the 12 review of systems is negative other than what was mentioned in the HPI and above. BP 122/86 Pulse 83 Temp 36.3 C (97.4 F) (Temporal) Ht 160 cm (5' 3") Wt 54 kg (119 lb) BMI 21.08 kg/m Physical findings of this patient are as follows (COMPLETE 10 INCLUDING HEART AND LUNG EXAM OR CHOOSE NORMAL EXAM IF APPROPRIATE): Physical Exam Physical Exam Constitutional: No apparent distress. Evidence of chronic contractures. Cardiovascular: Regular rhythm and normal heart sounds. Pulmonary/Chest: Effort normal and breath sounds normal. Abdominal: Soft. Nontender. Skin: Skin is warm and dry. Relevant Hernia Findings - Bilateral inguinal hernias which are soft and easily reducible. No overlying tenderness or skin changes. LABS: No results found for: "HBA1C" IMAGING - Reviewed with staff CT - 11/28/23 Bilateral inguinal hernias - left inguinal hernia containing portion of bladder and bladder stone. No bowel contained within either hernia. 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 At time of examination, the patient is found to have bilateral inguinal hernias which are soft and easily reducible without overlying skin changes. While these are amenable to repair, would recommend deferring definitive repair until patient has fully recovered from Urology procedure to avoid risk of mesh contamination and subsequent infection given nature of planned Urology operation. The patient and his sister are aware they may follow up once he is recovered for re-evaluation and further discussion of elective repair. Plan: - Recommend deferring operative intervention at this time given risk of mesh contamination if performed at time of surgery scheduled 04/12 - Patient to follow up once appropriately recovered from Urology procedure for further discussion of elective bilateral inguinal hernia repair with mesh - Red flag symptoms warranting more urgent evaluation discussed Plan of care discussed with staff, Dr. Murillo. Laura Monet MD General Surgery Resident, PGY-1 04/10/2024 11:04 AM [facility] Work Phone: 04-10-2024 History and physical note [facility] - HISTORY AND PHYSICAL Chief Complaint: Bilateral inguinal hernias HPI: Jian Altamirano is a 58 year old male with PMHx of spina bifida with neurogenic bladder (with indwelling urethral catheter) and neurogenic bowel in addition to congenital hydrocephalus s/p SOFT SHOE DANCER shunt (inserted in infancy) who presents for evaluation of bilateral inguinal hernias. Per chart review, the patient most recently presented to see Dr. Florentino (Urology) in outpatient setting on 02/21/24 for evaluation of recurrent UTI. At that time, the patient's sister (primary caregiver) noted difficulty flushing urethral catheter with recurrent UTIs. Imaging was obtained revealing curvilinear bladder stones with large posterior right bladder diverticulum containing stone. Additionally noted was bilateral inguinal hernias with herniation of bladder into inguinal rings, with stone contained within left side. Recommendation per Urology was to proceed with open cystolitholapaxy and diverticulectomy which is currently scheduled for 04/12/24. He was referred to Hernia Surgery for evaluation in advance of this procedure to inquire about repair of bilateral inguinal hernias at time of scheduled procedure with Urology. He presents today with his sister who confirms a several year history of bilateral inguinal hernias which have been asymptomatic. She denies the patient complaining of pain or the hernias increasing in apparent size. She confirms the patient being on a significant bowel regimen per Gastroenterology with prior admissions for ileus. She denies admission for small bowel obstruction secondary to bowel within inguinal hernias. Relevant previous operations include: - SOFT SHOE DANCER shunt insertion - in infancy - SOFT SHOE DANCER shunt revision - age 19 No history of Psychiatric Disorders or Opioid Use Totally dependent No employment None Spina bifida, hydrocephalus N/A PAST MEDICAL HISTORY Diagnosis Date Bowel dysfunction Constipation Hydrocephalus (HCC) Inguinal hernia left - imaging at [facility] Sleep apnea Spina bifida (HCC) Urinary retention PAST SURGICAL HISTORY Procedure Laterality Date CRTJ SHUNT [id number] TERMINUS EGD W/O BRSH SPEC VARICIES INJ 08/06/2021 PAST SURGICAL HISTORY OF repair of hamstring PAST SURGICAL HISTORY OF abdominal surgery in childhood Social History Tobacco Use Smoking status: Never Smokeless tobacco: Never Substance Use Topics Alcohol use: No Drug use: No Additional social history not relevant to the patient's HPI FAMILY HISTORY Problem Relation Age of Onset Allergies Father Cancer Brother lung cancer Asthma Sister other (head injury) Sister Stroke Other Arthritis Other Anesthesia Problems No Family History Additional family history not relevant to the patient's HPI ALLERGIES Allergen Reactions Contrast Dye Anaphylaxis Fd And C Blue No.1 Iodinated Contrast * Anaphylaxis Macrodantin [Nitrof* GI Upset Nitrofurantoin GI Upset Phenytoin Current Outpatient Medications Medication Sig Dispense Refill prucalopride (MOTEGRITY) 2 mg tab tablet Take 1 tablet (2 mg) by mouth once daily. 30 tablet 3 metoclopramide HCl (REGLAN) 5 mg tablet Take 1 po up to tid prn constipation 10 tablet 2 baclofen 5 mg tablet Take 1 tablet by mouth three times a day. 270 Each 3 omeprazole (PRILOSEC) 20 mg capsule Take 1 capsule by mouth daily before breakfast. 1/2 hr before meal. (Patient not taking: Reported on 04/05/2024) 30 capsule 5 linaCLOtide (LINZESS) 290 mcg capsule Take 1 po qd 90 capsule 2 bisacodyl (DULCOLAX) 10 mg supp Bisacodyl Active 10 MG RC NEEDED 0 January 24, 2022 10:15am OTC No current facility-administered medications for this visit. REVIEW OF SYSTEMS The remainder of the 12 review of systems is negative other than what was mentioned in the HPI and above. BP 122/86 Pulse 83 Temp 36.3 C (97.4 F) (Temporal) Ht 160 cm (5' 3") Wt 54 kg (119 lb) BMI 21.08 kg/m Physical findings of this patient are as follows (COMPLETE 10 INCLUDING HEART AND LUNG EXAM OR CHOOSE NORMAL EXAM IF APPROPRIATE): Physical Exam Physical Exam Constitutional: No apparent distress. Evidence of chronic contractures. Cardiovascular: Regular rhythm and normal heart sounds. Pulmonary/Chest: Effort normal and breath sounds normal. Abdominal: Soft. Nontender. Skin: Skin is warm and dry. Relevant Hernia Findings - Bilateral inguinal hernias which are soft and easily reducible. No overlying tenderness or skin changes. LABS: No results found for: "HBA1C" IMAGING - Reviewed with staff CT - 11/28/23 Bilateral inguinal hernias - left inguinal hernia containing portion of bladder and bladder stone. No bowel contained within either hernia. 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 At time of examination, the patient is found to have bilateral inguinal hernias which are soft and easily reducible without overlying skin changes. While these are amenable to repair, would recommend deferring definitive repair until patient has fully recovered from Urology procedure to avoid risk of mesh contamination and subsequent infection given nature of planned Urology operation. The patient and his sister are aware they may follow up once he is recovered for re-evaluation and further discussion of elective repair. Plan: - Recommend deferring operative intervention at this time given risk of mesh contamination if performed at time of surgery scheduled 04/12 - Patient to follow up once appropriately recovered from Urology procedure for further discussion of elective bilateral inguinal hernia repair with mesh - Red flag symptoms warranting more urgent evaluation discussed Plan of care discussed with staff, Dr. Murillo. Laura Monet MD General Surgery Resident, PGY-1 04/10/2024 11:04 AM documented in this encounter [facility] 04-10-2024 Nurse Note What is the reason for your visit today? Consult Who is your referring physician? Dr. Murillo Are you having poor oral intake? NO Have you had unintentional weight loss of 15 lbs/7 Kg in the last 3-6 months? NO Bowels: constipated Wound: clean & dry Temperature: No Drains: No [facility] 04-10-2024 Nurse Note What is the reason for your visit today? Consult Who is your referring physician? Dr. Murillo Are you having poor oral intake? NO Have you had unintentional weight loss of 15 lbs/7 Kg in the last 3-6 months? NO Bowels: constipated Wound: clean & dry Temperature: No Drains: No documented in this encounter [facility] 04-06-2024 Telephone encounter Note Called patient to discuss preoperative urine culture results and prescribed Bactrim to take starting 3 days prior to scheduled surgery based upon prior culture sensitivity profile. They demonstrated understanding. [facility] 04-06-2024 Miscellaneous Notes Called patient to discuss preoperative urine culture results and prescribed Bactrim to take starting 3 days prior to scheduled surgery based upon prior culture sensitivity profile. They demonstrated understanding. documented in this encounter [facility] 04-05-2024 Instructions Anna Ayoub PA-C - 04/05/2024 1:49 PM EDT PATIENT PREOPERATIVE INSTRUCTIONS Brea Florentino MD has scheduled you for your procedure at this surgery center: [facility] Scheduling Office: [phone] --[address] [place] [address]. Please read below carefully for your personalized instructions. Dietary Restrictions: - No solid food after midnight. - You may have 12 ounces of clear liquids (water, clear juices such as apple juice or gatorade, carbonated beverages, clear tea, black coffee, jello) until 2 hours before scheduled arrival at facility. Medications: Unless instructed differently below, stay on all of your medications until your surgery. If you start any new medications after today's visit, please contact your surgeon. Pre-Surgery Med Instructions Medication Instructions prucalopride (MOTEGRITY) 2 mg tab tablet Do not take the day of surgery metoclopramide HCl (REGLAN) 5 mg tablet Do not take the day of surgery baclofen 5 mg tablet Do not take the day of surgery linaCLOtide (LINZESS) 290 mcg capsule Do not take the day of surgery If you start any new medications after today's visit, please contact the surgeon's office. Blood Thinning Medications: - Stop NSAIDS (Ibuprofen, Advil, Aleve, Motrin, Celebrex, Mobic, etc.) 7 days before surgery, as directed by your surgeon. - Stop Aspirin 7 days before surgery, as directed by your surgeon. - Stop Vitamin E, ALL multi-vitamins, herbals and dietary supplements 7 days before surgery. - You may take Tylenol (Acetaminophen) or any of your pain medications that do not contain aspirin or NSAIDS as needed. Important Reminders: - Candy, mints, and tobacco products are NOT permitted the morning of surgery. - Hearing aids, dentures and glasses may be worn the morning of surgery. - NO jewelry, body piercings, makeup, hairpins or contacts are to be worn the day of surgery. If you develop symptoms such as a fever, cold, or flu, or have other changes to your health within TWO DAYS of scheduled surgery or the morning of surgery, please contact the surgery center above. Personal Belongings: -Please have photo ID and insurance cards. -If you do not have a copy of advance directives on file with us, please bring a copy with you on the day of surgery. - Leave ALL valuables and money at home or with family members. For Outpatient Procedures: - YOU MUST HAVE A RESPONSIBLE TRICHOLOGIST TAKE YOU HOME. A PACKAGING SALES CONSULTANT OR WEIGHT ANALYST CANNOT BE MADE A RESPONSIBLE TRICHOLOGIST. - We recommend that a responsible person stays with you overnight to take care of you. - You cannot stay in a hotel alone after outpatient surgery. You will not be permitted to have your surgery, if you do not have someone to take care of you. Arrival Time for Surgery: - To obtain your arrival time for surgery, call your physician's office the day before your surgery. - If your surgery is scheduled for Tuesday, call the Tuesday before. Your surgeon s wirer street light will tell you what time to call the office. - If you have not reached the departmental wirer street light by 5 P.M., call [phone] after 5 P.M. the day before your surgery. Please be aware that emergency situations arise, which may delay or change your surgical time. If this happens, we will notify you as soon as possible and regret any inconvenience. If you already have an Advance Directive, please fax a copy to [phone] or email to for it to be added to your chart. If you do not have an Advance Directive, you can find the appropriate form and more information at [email or web address]. We recommend that you complete the Advance Directive form found on the website and bring it with you the day of your surgery. It can be witnessed and scanned into your chart that day. Anna Ayoub PA-C documented in this encounter [facility] 04-05-2024 History and physical note HISTORY AND PHYSICAL EXAMINATION SERVICE DATE: 04/05/2024 SERVICE TIME: 1:37 PM PRIMARY CARE PHYSICIAN: Clifford Estes MD Assessment Patient has the following medical conditions which may affect ellis-operative course: Hydrocephalus (HCC) -s/p shunt placement -follows with neurology Spina bifida (HCC) -on baclofen -follows with neurology Gastroparesis -on Linzess, Reglan, and Motegrity Neurogenic bladder -hannon catheter -scheduled for surgery [facility] Activity Status Index: METS: DASI Score: 0 (Walks with crutches ) Patient is partially dependent. Clinical Frailty Scale: 6. Moderately frail STOP-Bang Score: Patient over 50 years old Male patient STOP-Bang Score: 2 ANESTHESIA FINDINGS: Intubation History: No history of difficult intubation Significant Anesthesia Considerations: none Airway History: No history of difficult airway I - PHYSICAL EVALUATION AIRWAY Patient intubated: No. Mallampati: IV. TM distance: >3 FB. Neck ROM: limited extension. Upper lip bite test: unable. DENTAL Dental findings: teeth intact. II - ANESTHESIA PLAN Anesthetic plan additional comments: *PACC/TCI - anesthesia choice. Beta Sean Monitoring Plan Post Procedure Analgesic Plan Prepared for Surgery: optimally prepared for surgery, pending [see comment]. EKG. CONSULTS: Patient does not require consults for optimization at this time Planned Anesthetic: anesthesia choice The Following Tests/Procedures Have Been Initiated: Orders Placed This Encounter ECG COMPLETE Standing Status: Future Number of Occurrences: 1 Standing Expiration Date: 04/05/2025 Orders placed by surgeon's office: CBC, CMP. REASON FOR VISIT: Jian Altamirano is a 58 year old male who is scheduled for Procedure(s): DIVERTICULECTOMY BLADDER (N/A) CYSTOSCOPY FLEXIBLE (N/A) INSERTION STENT URETERAL (Right) CYSTOLITHOTOMY (N/A) at the request of Brea Chaney MD for consultation. My final recommendation will be communicated back to the requesting physician by way of shared medical record or letter. Subjective The patient has the following: ACTIVE PROBLEM LIST Congenital Hydrocephalus (Hcc) Myelodysplasia Deformity of Ankle and Foot, Acquired Weakness Abnormality of Gait Spina Bifida (Hcc) Neurogenic Bladder Benign Prostatic Hyperplasia With Urinary Retention Right Inguinal Hernia Hydrocephalus (Hcc) Urinary Retention History of Brain Shunt Gastroparesis Acute Pseudo-Obstruction of Bowel Hypokalemia COVID-19 Immunization Status Overdue - Covid-19 Vaccine () Overdue since 07/15/2023 04/19/2022 Imm Admin: COVID-19 original vaccine, age 12+ yr, monovalent ([employer] - [facility]) 05/07/2021 Imm Admin: COVID-19 original vaccine, full dose, monovalent (MODERNA) 04/09/2021 Imm Admin: COVID-19 original vaccine, full dose, monovalent (MODERNA) Only the first 3 history entries have been loaded, but more history exists. CHIEF COMPLAINT: Diverticulum of bladder HPI: Patient is a 58 year old male presenting to [facility]. He has c/o diverticulum of bladder and bladder stones. Currently has a hannon catheter denies hematuria. The above surgery was recommended; patient has elected to proceed. REVIEW OF SYSTEMS: General: No weight loss, malaise or fevers. Neurological: + Spina bifida, congenital hydrocephalus, Sp brain shunt Negative for: TIA and strokes. Respiratory: No history of current cough or dyspnea, or pneumonia in the past 6 weeks. No history of respiratory/pulmonary symptoms or problems. Cardiovascular: No history of HTN requiring medication, no history of angina, CHF, VT, cardiac surgery or stents. Denies rest pain, gangrene or revascularization/amputation for PVD. No history of cardiovascular symptoms or problems. GI: + Gastroparesis. : See HPI. Endocrine: No history of diabetes. Has not taken steroids within the past 30 days. No history of endocrinological symptoms or problems. Hematology: No history of bleeding or clotting disorder. Patient is not taking anti-coagulation or platelet medications. No history of hematological symptoms or problems. Oncology: No history of CA metastasis, chemo within 30 days, or radiotherapy within 90 days. No history of oncological symptoms or problems. Psych: No history of psychiatric symptoms or problems. Musculoskeletal: Negative for joint pain or swelling, back pain or muscle pain. Skin: Negative for lesions, rash and itching. PAST MEDICAL HISTORY Diagnosis Date Bowel dysfunction Constipation Hydrocephalus (HCC) Inguinal hernia left - imaging at [facility] Sleep apnea Spina bifida (HCC) Urinary retention PAST SURGICAL HISTORY Procedure Laterality Date CRTJ SHUNT [id number] TERMINUS EGD W/O BRSH SPEC VARICIES INJ 08/06/2021 PAST SURGICAL HISTORY OF repair of hamstring PAST SURGICAL HISTORY OF abdominal surgery in childhood FAMILY HISTORY Problem Relation Age of Onset Allergies Father Cancer Brother lung cancer Asthma Sister other (head injury) Sister Stroke Other Arthritis Other Anesthesia Problems No Family History Social History Tobacco Use Smoking status: Never Smokeless tobacco: Never Substance Use Topics Alcohol use: No Drug use: No Prior to Admission medications as of 04/05/24 1444 Medication Sig Last Dose Taking prucalopride (MOTEGRITY) 2 mg tab tablet Take 1 tablet (2 mg) by mouth once daily. Taking Yes metoclopramide HCl (REGLAN) 5 mg tablet Take 1 po up to tid prn constipation Taking Yes baclofen 5 mg tablet Take 1 tablet by mouth three times a day. Taking Yes linaCLOtide (LINZESS) 290 mcg capsule Take 1 po qd Taking Yes omeprazole (PRILOSEC) 20 mg capsule Take 1 capsule by mouth daily before breakfast. 1/2 hr before meal. Patient not taking: Reported on 04/05/2024 Not Taking bisacodyl (DULCOLAX) 10 mg supp Bisacodyl Active 10 MG RC NEEDED 0 January 24, 2022 10:15am OTC Medication Comments documented by Sandie Pierre RN on 11/01/2020 at 1703. 11/01/2020 Pt's sister stating pt not taking Cipro at this time, completed course of atb. N. Gabby Cruz. ALLERGIES Allergen Reactions Contrast Dye Anaphylaxis Fd And C Blue No.1 Iodinated Contrast * Anaphylaxis Macrodantin [Nitrof* GI Upset Nitrofurantoin GI Upset Phenytoin Objective PHYSICAL EXAM: General: alert and oriented and healthy appearance. Pertinent negatives noted - not distressed. Skin: normal color, no rash or lesions. HEENT: EOM intact. Pertinent negatives noted - no carotid bruit. Cardiovascular: regular rate and rhythm, normal S1 and S2, no rub, murmurs, or gallop. Respiratory: normal breath sounds, no wheezes or crackles. No chest wall deformity or tenderness. Abdomen: Pertinent negatives noted - not distended. Extremities: no deformity, no edema or tenderness, no joint swelling or clubbing. Neurological: Positive for abnormal gait (in a wheelchair), speech abnormality and limb weakness. Contractures . PAIN ASSESSMENT: VITALS: BP 129/77 Pulse 80 Temp (Src) 98 (Temporal) Ht 5' 3" (1.60m) Wt 119 lb (54.0kg) SpO2 98% BMI 21.09 kg/(m^2). Diagnostic tests reviewed for today's visit: Lab Value Units Date High Low HB 14.6 g/dL 04/03/2024 17.0 13.0 HCT 42.7 % 04/03/2024 51.0 39.0 WBC 7.36 k/uL 04/03/2024 11.00 3.70 PLT 410 k/uL 04/03/2024 400 150 NA 131 mmol/L 04/03/2024 144 136 K 4.3 mmol/L 04/03/2024 5.1 3.7 GLUC 96 mg/dL 04/03/2024 99 74 BUN 7 mg/dL 04/03/2024 24 9 CREAT 0.69 mg/dL 04/03/2024 1.22 0.73 PTSEC No results within date range. INR No results within date range. APTT No results within date range. ALT 13 U/L 04/03/2024 54 10 AST 15 U/L 04/03/2024 40 14 TBILI 0.4 mg/dL 04/03/2024 1.3 0.2 TSH No results within date range. Lab Value Units Date High Low HCGQT No results within date range. UHCG No results within date range. HCG, BODY* No results within date range. Lab Value Units Date High Low ABORHD No results within date range. ABSCREEN No results within date range. No results found for: "HBA1C" Recent Results (from the past 8760 hour(s)) ECG COMPLETE Collection Time: 04/05/24 2:10 PM Result Value Ventricular Rate 79 Atrial Rate 79 P-R Interval 142 QRS Duration 102 QT Interval 374 QTC Calculation (Bazett) 428 Calculated P Meade 1 Calculated R Meade 7 Calculated T Meade 32 Impression NORMAL SINUS RHYTHM RSR' PATTERN IN V1 SUGGESTS INCOMPLETE RIGHT BUNDLE BRANCH BLOCK BORDERLINE ECG No results found for this or any previous visit (from the past 43636 hour(s)). Instructions Given to Patient: Instructions located in the after visit summary. Patient given verbal and written preop instructions and voices comprehension and compliance. SIGNATURE: Anna Ayoub PA-C PATIENT NAME: Jian Altamirano DATE: April 05, 2024 TIME: 2:09 PM PAGER/CONTACT #: [facility] 04-05-2024 History and physical note HISTORY AND PHYSICAL EXAMINATION SERVICE DATE: 04/05/2024 SERVICE TIME: 1:37 PM PRIMARY CARE PHYSICIAN: Clifford Estes MD Assessment Patient has the following medical conditions which may affect ellis-operative course: Hydrocephalus (HCC) -s/p shunt placement -follows with neurology Spina bifida (HCC) -on baclofen -follows with neurology Gastroparesis -on Linzess, Reglan, and Motegrity Neurogenic bladder -hannon catheter -scheduled for surgery [facility] Activity Status Index: METS: DASI Score: 0 (Walks with crutches ) Patient is partially dependent. Clinical Frailty Scale: 6. Moderately frail STOP-Bang Score: Patient over 50 years old Male patient STOP-Bang Score: 2 ANESTHESIA FINDINGS: Intubation History: No history of difficult intubation Significant Anesthesia Considerations: none Airway History: No history of difficult airway I - PHYSICAL EVALUATION AIRWAY Patient intubated: No. Mallampati: IV. TM distance: >3 FB. Neck ROM: limited extension. Upper lip bite test: unable. DENTAL Dental findings: teeth intact. II - ANESTHESIA PLAN Anesthetic plan additional comments: *PACC/TCI - anesthesia choice. Beta Sean Monitoring Plan Post Procedure Analgesic Plan Prepared for Surgery: optimally prepared for surgery, pending [see comment]. EKG. CONSULTS: Patient does not require consults for optimization at this time Planned Anesthetic: anesthesia choice The Following Tests/Procedures Have Been Initiated: Orders Placed This Encounter ECG COMPLETE Standing Status: Future Number of Occurrences: 1 Standing Expiration Date: 04/05/2025 Orders placed by surgeon's office: CBC, CMP. REASON FOR VISIT: Jian Altamirano is a 58 year old male who is scheduled for Procedure(s): DIVERTICULECTOMY BLADDER (N/A) CYSTOSCOPY FLEXIBLE (N/A) INSERTION STENT URETERAL (Right) CYSTOLITHOTOMY (N/A) at the request of Brea Chaney MD for consultation. My final recommendation will be communicated back to the requesting physician by way of shared medical record or letter. Subjective The patient has the following: ACTIVE PROBLEM LIST Congenital Hydrocephalus (Hcc) Myelodysplasia Deformity of Ankle and Foot, Acquired Weakness Abnormality of Gait Spina Bifida (Hcc) Neurogenic Bladder Benign Prostatic Hyperplasia With Urinary Retention Right Inguinal Hernia Hydrocephalus (Hcc) Urinary Retention History of Brain Shunt Gastroparesis Acute Pseudo-Obstruction of Bowel Hypokalemia COVID-19 Immunization Status Overdue - Covid-19 Vaccine ( season) Overdue since 07/15/2023 04/19/2022 Imm Admin: COVID-19 original vaccine, age 12+ yr, monovalent ([facility]) 05/07/2021 Imm Admin: COVID-19 original vaccine, full dose, monovalent (MODERNA) 04/09/2021 Imm Admin: COVID-19 original vaccine, full dose, monovalent (MODERNA) Only the first 3 history entries have been loaded, but more history exists. CHIEF COMPLAINT: Diverticulum of bladder HPI: Patient is a 58 year old male presenting to [facility]. He has c/o diverticulum of bladder and bladder stones. Currently has a hannon catheter denies hematuria. The above surgery was recommended; patient has elected to proceed. REVIEW OF SYSTEMS: General: No weight loss, malaise or fevers. Neurological: + Spina bifida, congenital hydrocephalus, Sp brain shunt Negative for: TIA and strokes. Respiratory: No history of current cough or dyspnea, or pneumonia in the past 6 weeks. No history of respiratory/pulmonary symptoms or problems. Cardiovascular: No history of HTN requiring medication, no history of angina, CHF, VT, cardiac surgery or stents. Denies rest pain, gangrene or revascularization/amputation for PVD. No history of cardiovascular symptoms or problems. GI: + Gastroparesis. : See HPI. Endocrine: No history of diabetes. Has not taken steroids within the past 30 days. No history of endocrinological symptoms or problems. Hematology: No history of bleeding or clotting disorder. Patient is not taking anti-coagulation or platelet medications. No history of hematological symptoms or problems. Oncology: No history of CA metastasis, chemo within 30 days, or radiotherapy within 90 days. No history of oncological symptoms or problems. Psych: No history of psychiatric symptoms or problems. Musculoskeletal: Negative for joint pain or swelling, back pain or muscle pain. Skin: Negative for lesions, rash and itching. PAST MEDICAL HISTORY Diagnosis Date Bowel dysfunction Constipation Hydrocephalus (HCC) Inguinal hernia left - imaging at [facility] Sleep apnea Spina bifida (HCC) Urinary retention PAST SURGICAL HISTORY Procedure Laterality Date CRTJ SHUNT [id number] TERMINUS EGD W/O BRSH SPEC VARICIES INJ 08/06/2021 PAST SURGICAL HISTORY OF repair of hamstring PAST SURGICAL HISTORY OF abdominal surgery in childhood FAMILY HISTORY Problem Relation Age of Onset Allergies Father Cancer Brother lung cancer Asthma Sister other (head injury) Sister Stroke Other Arthritis Other Anesthesia Problems No Family History Social History Tobacco Use Smoking status: Never Smokeless tobacco: Never Substance Use Topics Alcohol use: No Drug use: No Prior to Admission medications as of 04/05/24 1444 Medication Sig Last Dose Taking prucalopride (MOTEGRITY) 2 mg tab tablet Take 1 tablet (2 mg) by mouth once daily. Taking Yes metoclopramide HCl (REGLAN) 5 mg tablet Take 1 po up to tid prn constipation Taking Yes baclofen 5 mg tablet Take 1 tablet by mouth three times a day. Taking Yes linaCLOtide (LINZESS) 290 mcg capsule Take 1 po qd Taking Yes omeprazole (PRILOSEC) 20 mg capsule Take 1 capsule by mouth daily before breakfast. 1/2 hr before meal. Patient not taking: Reported on 04/05/2024 Not Taking bisacodyl (DULCOLAX) 10 mg supp Bisacodyl Active 10 MG RC NEEDED 0 January 24, 2022 10:15am OTC Medication Comments documented by Sandie Pierre RN on 11/01/2020 at 1703. 11/01/2020 Pt's sister stating pt not taking Cipro at this time, completed course of atb. Matt Cruz. ALLERGIES Allergen Reactions Contrast Dye Anaphylaxis Fd And C Blue No.1 Iodinated Contrast * Anaphylaxis Macrodantin [Nitrof* GI Upset Nitrofurantoin GI Upset Phenytoin Objective PHYSICAL EXAM: General: alert and oriented and healthy appearance. Pertinent negatives noted - not distressed. Skin: normal color, no rash or lesions. HEENT: EOM intact. Pertinent negatives noted - no carotid bruit. Cardiovascular: regular rate and rhythm, normal S1 and S2, no rub, murmurs, or gallop. Respiratory: normal breath sounds, no wheezes or crackles. No chest wall deformity or tenderness. Abdomen: Pertinent negatives noted - not distended. Extremities: no deformity, no edema or tenderness, no joint swelling or clubbing. Neurological: Positive for abnormal gait (in a wheelchair), speech abnormality and limb weakness. Contractures . PAIN ASSESSMENT: VITALS: BP 129/77 Pulse 80 Temp (Src) 98 (Temporal) Ht 5' 3" (1.60m) Wt 119 lb (54.0kg) SpO2 98% BMI 21.09 kg/(m^2). Diagnostic tests reviewed for today's visit: Lab Value Units Date High Low HB 14.6 g/dL 04/03/2024 17.0 13.0 HCT 42.7 % 04/03/2024 51.0 39.0 WBC 7.36 k/uL 04/03/2024 11.00 3.70 PLT 410 k/uL 04/03/2024 400 150 NA 131 mmol/L 04/03/2024 144 136 K 4.3 mmol/L 04/03/2024 5.1 3.7 GLUC 96 mg/dL 04/03/2024 99 74 BUN 7 mg/dL 04/03/2024 24 9 CREAT 0.69 mg/dL 04/03/2024 1.22 0.73 PTSEC No results within date range. INR No results within date range. APTT No results within date range. ALT 13 U/L 04/03/2024 54 10 AST 15 U/L 04/03/2024 40 14 TBILI 0.4 mg/dL 04/03/2024 1.3 0.2 TSH No results within date range. Lab Value Units Date High Low HCGQT No results within date range. UHCG No results within date range. HCG, BODY* No results within date range. Lab Value Units Date High Low ABORHD No results within date range. ABSCREEN No results within date range. No results found for: "HBA1C" Recent Results (from the past 8760 hour(s)) ECG COMPLETE Collection Time: 04/05/24 2:10 PM Result Value Ventricular Rate 79 Atrial Rate 79 P-R Interval 142 QRS Duration 102 QT Interval 374 QTC Calculation (Bazett) 428 Calculated P Meade 1 Calculated R Meade 7 Calculated T Meade 32 Impression NORMAL SINUS RHYTHM RSR' PATTERN IN V1 SUGGESTS INCOMPLETE RIGHT BUNDLE BRANCH BLOCK BORDERLINE ECG No results found for this or any previous visit (from the past 19542 hour(s)). Instructions Given to Patient: Instructions located in the after visit summary. Patient given verbal and written preop instructions and voices comprehension and compliance. SIGNATURE: Anna Ayoub PA-C PATIENT NAME: Jian Altamirano DATE: April 05, 2024 TIME: 2:09 PM PAGER/CONTACT #: documented in this encounter [facility] 04-05-2024 History of Present illness Narrative HPI: Mr. Altamirano is a 58 year old male with a history of spina bifida, shunted hydrocephalus. 02/21/2024, office visit with Dr. Florentino for recurrent UTI. 11/28/2023, CT scan OSH: curvilinear bladder stones (likely formed on hannon) and large posterior right sided bladder diverticulum with large stone; Bladder herniated into bl inguinal rings, stone in left; Dilated bowel 03/21/24, virtual office visit with Dr. Mar for neurogenic bowel. Per note, "PLAN - Continue patient's currently bowel regimen for linaclotide 290mcg daily, prucalopride 2mg and daily suppositories/prn enemas as outpatient - While patient is in the hospital following his upcoming surgery, I would make sure his prucalopride and linaclotide are continued. I would plan for BID enemas (scheduled) and daily supository (scheduled) to ensure bowels remain as close to regular as possible in the hospital - Metoclopramide 5mg TID-prn for constipation Plan is to follow up as needed (prn)." 04/03/2024, office visit with Daphney Castellon PA-C for shunt evaluation. Per note, "Message sent to admin to obtain CT from Recommend repeat CT brain Shunt series done today, looks good. No disconnections No specific shunt related issues. F/u in 2 years." Today, here for pre op teaching and collection of urine for culture from urethral catheter for upcoming bladder, diverticulectomy, cystoscopy, bladder stone removal, and right ureteral stent placement on 04/12/[address] Florentino. Accompanied by his sister and lawn care worker, Darrion. All questions and concerns regarding surgery and recovery discussed. Urine collected from urethral catheter in sterile fashion. PAST MEDICAL HISTORY Diagnosis Date Bowel dysfunction Constipation Hydrocephalus (HCC) Inguinal hernia left - imaging at [facility] Sleep apnea Spina bifida (HCC) Urinary retention PAST SURGICAL HISTORY Procedure Laterality Date CRTJ SHUNT [id number] [facility] 08/06/2021 PAST SURGICAL HISTORY OF repair of hamstring Social History Tobacco Use Smoking status: Never Smokeless tobacco: Never Substance Use Topics Alcohol use: No Drug use: No Current Outpatient Medications on File Prior to Visit Medication Sig prucalopride (MOTEGRITY) 2 mg tab tablet Take 1 tablet (2 mg) by mouth once daily. metoclopramide HCl (REGLAN) 5 mg tablet Take 1 po up to tid prn constipation baclofen 5 mg tablet Take 1 tablet by mouth three times a day. omeprazole (PRILOSEC) 20 mg capsule Take 1 capsule by mouth daily before breakfast. 1/2 hr before meal. linaCLOtide (LINZESS) 290 mcg capsule Take 1 po qd bisacodyl (DULCOLAX) 10 mg supp Bisacodyl Active 10 MG RC NEEDED 0 January 24, 2022 10:15am OTC No current facility-administered medications on file prior to visit. DATA/OR LABS TO BE REVIEWED: (Simple=1 data point; Complex= 2 or more) No results found for: "PSA" Creatinine (mg/dL) Date Value 04/03/2024 0.69 10/25/2023 0.70 10/12/2023 0.68 10/04/2023 0.55 08/03/2023 0.75 07/30/2021 0.73 10/02/2020 0.72 09/11/2020 0.68 08/22/2018 0.76 05/22/2013 0.53 No results found for: "TESTOST" A/P: (Z13.89) Screening for genitourinary condition (primary encounter diagnosis) Plan: URINALYSIS, REFLEX MICROSCOPIC (N32.3) Diverticulum of bladder Plan: URINE CULTURE (N21.0) Bladder stones Plan: URINE CULTURE (Q05.4) Spina bifida with hydrocephalus, unspecified spinal region (HCC) Will reach out to patient after urine culture results for treatment, if needed. Isadora Garvin RN documented in this encounter [facility] 04-03-2024 Instructions Daphney Castellon PA-C - 04/03/2024 12:22 PM EDT Call [phone] brain documented in this encounter [facility] 04-03-2024 Nurse Note Additional intake questions: Has the patient had fever, nausea, vomiting, diarrhea, constipation, fatigue for > 1 week? No Does the patient have a decreased appetite? No Does patient want to see a Systems Integration Advisor? No (yes to any of above refer patient to schedulers for dietitian appointment) ) Does patient have any new or increased numbness or tingling of extremities? No Is patient interested in fertility information? No Does patient need any prescription refills? No Does patient have an advanced directive in place? Yes, copies are in Epic [facility] 04-03-2024 Nurse Note Additional intake questions: Has the patient had fever, nausea, vomiting, diarrhea, constipation, fatigue for > 1 week? No Does the patient have a decreased appetite? No Does patient want to see a Systems Integration Advisor? No (yes to any of above refer patient to schedulers for dietitian appointment) ) Does patient have any new or increased numbness or tingling of extremities? No Is patient interested in fertility information? No Does patient need any prescription refills? No Does patient have an advanced directive in place? Yes, copies are in [facility] documented in this encounter [facility] 04-03-2024 History of Present illness Narrative This note was created using [email or web address]. Subjective Jian Altamirano is a 58 year old male [facility]. He has a PMhx of spina bifida with hydrocephalus, s/p SOFT SHOE DANCER shunt placed at , spastic paraparesis and neurogenic bladder. He was last seen by neurology in 2019 with c/o worsening spasticity, bowel function and urinary function. At that time he c/o spasticity most prominent in the ankles, but present througout upper and lower extremities. He felt his head was always tilting to the R with significant tightness in the neck. He has a urinary catheter. The last time the shunt was revised was when he was a teenager and they revised the distal catheter to add length. The family thinks that there was one time that they did one surgery that they shaved his head but they don't remember what they did. He is currently having a lot of urinary issues and bowel issues. He has a permanent indwelling catheter. He is supposed to go to surgery for an inguinal hernia and blader diverticulum. Review of Systems Constitutional: Negative for fatigue and fever. HENT: Negative for tinnitus and trouble swallowing. Eyes: Negative for pain and visual disturbance. Respiratory: Positive for cough. Negative for wheezing. Cardiovascular: Negative for chest pain and palpitations. Gastrointestinal: Negative for nausea and vomiting. Musculoskeletal: Negative for back pain and neck pain. Allergic/Immunologic: Negative for environmental allergies and food allergies. Neurological: Negative for dizziness and headaches. Psychiatric/Behavioral: Negative for dysphoric mood. The patient is not nervous/anxious. Objective There were no vitals taken for this visit. Physical Exam Constitutional: Appearance: Normal appearance. HENT: Head: Normocephalic and atraumatic. Eyes: Conjunctiva/sclera: Conjunctivae normal. Comments: Eyes dysconjugate Pulmonary: Effort: Pulmonary effort is normal. No respiratory distress. Skin: General: Skin is warm and dry. Neurological: Mental Status: He is alert. GCS: GCS eye subscore is 4. GCS verbal subscore is 5. GCS motor subscore is 6. Cranial Nerves: Facial asymmetry present. No dysarthria. Motor: Weakness and abnormal muscle tone present. Coordination: Coordination abnormal. [id number]-Hwtj-[id number] Test abnormal. Comments: Paraparesis Spasticity of the UE and LE Neurogenic b/b Assessment and Plan Spina bifida Congenital hydrocephalus Paraparesis Neurogenic bowel and bladder Non-programmable shunt valve. No disconnections noted on xray. No recent CT in system Report of CT from dec 11, 2022. Pt was seeing for shunt Has not been seen in awhile Message sent to admin to obtain CT from Recommend repeat CT brain Shunt series done today, looks good. No disconnections No specific shunt related issues. F/u in 2 years. I spent a total of 35 minutes on the date of the service which included preparing to see the patient, [id number] patient care, completing clinical documentation, obtaining and/or reviewing separately obtained history, performing a medically appropriate examination, counseling and educating the patient/family/caregiver, ordering medications, tests, or procedures, communicating with other HCPs (not separately reported), independently interpreting results (not separately reported), communicating results to the patient/family/caregiver, and care coordination (not separately reported). documented in this encounter [facility] 04-03-2024 History of Present illness Narrative Radiology Service Progress Note PATIENT NAME: Jian Altamirano DATE OF SERVICE: April 03, 2024 TIME: 12:04 PM PATIENT IDENTITY VERIFICATION COMPLETED USING TWO (2) IDENTIFIERS: Name and Date of confirmed by patient verbally. FALL SCREENING: Has the patient had 2 falls in the last year or 1 fall with injury or currently using an Ambulatory Assistive Device (Walker, Cane, Wheelchair, Crutches, etc.)? No PATIENT GENDER DATA: Male PATIENT RELEVANT IMPLANT DATA REVIEWED: Not Applicable PATIENT PRESENTS WITH AN IMPLANTABLE OR ATTACHED SUPERVISOR RESPIRATORY: No RADIOLOGY DEPARTMENT: General X-ray: Exam(s) Completed: Shunt X-Ray PERIPHERAL IV DATA: Not applicable SIGNED BY: RT Khushi(R) April 03, 2024 12:04 PM documented in this encounter [facility] 04-02-2024 Telephone encounter Note Called darrion to discuss hernias He is not symptomatic from hernias He does have a forceful cough at baseline and spasticity that causes his legs to swing in the air. Darrion is concerned this will increase risk for recurrence with any hernia repair. Jian is on a good bowel regimen as recommended by Dr Nazario. Doing well from this standpoint. I have discussed this case with my hernia colleagues re whether to fix hernias at the same time as diverticulectomy/cystolithotomy. They will discuss RBA with patient/family. [facility] Work Phone: 04-02-2024 Miscellaneous Notes Called darrion to discuss hernias He is not symptomatic from hernias He does have a forceful cough at baseline and spasticity that causes his legs to swing in the air. Darrion is concerned this will increase risk for recurrence with any hernia repair. Jian is on a good bowel regimen as recommended by Dr Nazario. Doing well from this standpoint. I have discussed this case with my hernia colleagues re whether to fix hernias at the same time as diverticulectomy/cystolithotomy. They will discuss RBA with patient/family. documented in this encounter [facility] 03-21-2024 Telephone encounter Note Called and spoke to Lesli Bansal regarding her questions and concerns. Wanted to know if general surgeon, Joel Orellana, wanted to see Jian Altamirano in advance of surgery. Informed her that imaging of 11/2023 was sufficient for her needs, and she will see him the morning of surgery. Reviewed the rest of the pre op appointments and answered questions and concerns. Invited her to call the office if something comes up. Lesli Bansal states understanding. Isadora Garvin RN ----- Message from Veronika Frazier MA sent at 03/21/2024 3:14 PM EDT ----- Regarding: Pre ops Please call patient She called office and has a lot of questions about pre ops. I tried going over with her the times etc that it shows on the appt desk. She has a bunch of questions I cannot answer re: the procedure and seeing another doctor as well who is suppose to be doing the surgery with Brea Thanks [facility] Work Phone: 03-21-2024 Miscellaneous Notes Called and spoke to Lesli Bansal regarding her questions and concerns. Wanted to know if general surgeon, Joel Orellana, wanted to see Jian Altamirano in advance of surgery. Informed her that imaging of 11/2023 was sufficient for her needs, and she will see him the morning of surgery. Reviewed the rest of the pre op appointments and answered questions and concerns. Invited her to call the office if something comes up. Lesli Bansal states understanding. Isadora Garvin RN ----- Message from Veronika Frazier MA sent at 03/21/2024 3:14 PM EDT ----- Regarding: Pre ops Please call patient She called office and has a lot of questions about pre ops. I tried going over with her the times etc that it shows on the appt desk. She has a bunch of questions I cannot answer re: the procedure and seeing another doctor as well who is suppose to be doing the surgery with Brea Thanks documented in this encounter [facility] 03-21-2024 History of Present illness Narrative DEPARTMENT OF GASTROENTEROLOGY AND [facility]Y [facility] OUTPATIENT VISIT DATE March 21, 2024 OUTPATIENT VISIT TYPE FOLLOW UP VIRTUAL VISIT Patient: Jian Altamirano Medical Record: [id number] Reason for Consultation: Opinion/Advice regarding neurogenic bowel at the request of Brea Florentino MD. My recommendations will be communicated by way of the shared medical record. Assessment IMPRESSION Jian Altamirano is a 58 year old male who is seen via virtual visit today in consultation for neurogenic bowel. Past medical history is significant for JASON, spina bifida, hydrocephalus s/p shunt, neurogenic bowel. PLAN - Continue patient's currently bowel regimen for linaclotide 290mcg daily, prucalopride 2mg and daily suppositories/prn enemas as outpatient - While patient is in the hospital following his upcoming surgery, I would make sure his prucalopride and linaclotide are continued. I would plan for BID enemas (scheduled) and daily supository (scheduled) to ensure bowels remain as close to regular as possible in the hospital - Metoclopramide 5mg TID-prn for constipation Plan is to follow up as needed (prn). Beck Mar MD Staff, Gastroenterology Division of Neurogastroenterology & Motility [facility] Diseases [facility] Surgery [facility] I spent a total of 45 minutes on the date of the service which included preparing to see the patient, [id number] virtual patient care, completing clinical documentation, obtaining and/or reviewing separately obtained history, performing a medically appropriate examination, counseling and educating the patient/family/caregiver, ordering medications, tests, or procedures, communicating with other HCPs (not separately reported), independently interpreting results (not separately reported), communicating results to the patient/family/caregiver, and care coordination (not separately reported). HISTORY OF PRESENT ILLNESS: Jian Altamirano is a 58 year old male who is seen via virtual visit today in consultation for neurogenic bowel. Past medical history is significant for JASON, spina bifida, hydrocephalus s/p shunt, neurogenic bowel. Patient has had follow up with Dr. Nayely Nazario and Liz Villarreal over the past several years. Saw Dr. Nazario 09/2022. Currently on prucalopride 2mg once daily, linaclotide 290mcg/day, suppositories daily with prn enemas. REVIEW OF SYSTEMS: PAIN ASSESSMENT: Negative for pain, history of [...] SKIN: Negative for lesions, rash, and itching ENDOCRINE: Negative for cold or heat intolerance, polyuria, polydipsia and goiter NEURO: No history of headaches, syncope, paralysis, seizures or tremors All other systems were reviewed and found to be negative. I have confirmed and edited as necessary, the PFSH and ROS obtained by others. Past Medical History: PAST MEDICAL HISTORY Diagnosis Date Bowel dysfunction Constipation Hydrocephalus (HCC) Inguinal hernia left - imaging at [facility] Sleep apnea Spina bifida (HCC) Urinary retention Past Surgical History: PAST SURGICAL HISTORY Procedure Laterality Date CRTJ SHUNT [id number] TERMINUS EGD W/O [facility] SPEC VARICIES INJ 08/06/2021 PAST SURGICAL HISTORY OF repair of hamstring Family History: FAMILY HISTORY Problem Relation Age of Onset Allergies Father Stroke Other Arthritis Other Cancer Brother lung cancer Asthma Sister other (head injury) Sister Social History: Social History Tobacco Use Smoking status: Never Smokeless tobacco: Never Substance Use Topics Alcohol use: No Drug use: No Allergies: ALLERGIES Allergen Reactions Contrast Dye Anaphylaxis Fd And C Blue No.1 Iodinated Contrast * Anaphylaxis Macrodantin [Nitrof* GI Upset Nitrofurantoin GI Upset Phenytoin Medications: Current Outpatient Medications Medication Sig Dispense Refill prucalopride (MOTEGRITY) 2 mg tab tablet Take 1 tablet (2 mg) by mouth once daily. 30 tablet 3 metoclopramide HCl (REGLAN) 5 mg tablet Take 1 po up to tid prn constipation 10 tablet 2 baclofen 5 mg tablet Take 1 tablet by mouth three times a day. 270 Each 3 omeprazole (PRILOSEC) 20 mg capsule Take 1 capsule by mouth daily before breakfast. 1/2 hr before meal. 30 capsule 5 linaCLOtide (LINZESS) 290 mcg capsule Take 1 po qd 90 capsule 2 bisacodyl (DULCOLAX) 10 mg supp Bisacodyl Active 10 MG RC NEEDED 0 January 24, 2022 10:15am OTC No current facility-administered medications for this visit. PHYSICAL EXAM Patient reported BMI is 21.97 General - Normal, healthy, cooperative, in no acute distress Able to interact verbally by video conference Psych - ORIENTATION: normal to time place, person and situation Mood/Affect: AFFECT AND MOOD: Normal Head/Neuro - Normal size and shape Facial appearance normal Pulmonary - respiratory effort normal Cardiovascular - patient describes extremities normal, warm, no cyanosis,no clubbing, and no edema Abdominal - Not performed Skin - abnormal lesions not visualized Motor - patient seen sitting with Normal appearing strength and coordination LABS: I have personally reviewed all pertinent labs on the date of the encounter. IMAGING: I have personally reviewed all pertinent imaging on the date of the encounter. PROCEDURES: I have personally reviewed all pertinent procedures on the date of the encounter. Sigmoidoscopy 11/2022: - Dilated in the rectum, in the sigmoid colon, in the descending colon and in the distal transverse colon with redundant colon consistent with chronic colonic dysmotility. - Stool in the entire examined colon. - No specimens collected. Colonoscopy 03/2021: - Tortuous colon with redundancy and atonic. - No specimens collected. I have communicated my name and active licensure. The patient's identity and physical location were verified at the time of this visit. Either the patient or their legal mechanical service representative has been informed of the risks and benefits of -- and alternatives to -- treatment through a remote evaluation and consents to proceed with the evaluation remotely. SIGNATURE: Beck Mar MD PATIENT NAME: Jian Altamirano DATE OF 1965 documented in this encounter [facility] 03-21-2024 Instructions Beck Mar MD - 03/21/2024 2:15 PM EDT documented in this encounter [facility] 03-06-2024 Telephone encounter Note Patient's sister notified. Verbalized understanding. [facility] 03-06-2024 Miscellaneous Notes Patient's sister notified. Verbalized understanding. Ok. Thank her for letting me know. We will wait and see how he does. Patient sister Darrion calling she is letting PCP know that brother is scheduled for surgery on 04/12/2024 diverticulectomy bladder and having Neuro surgeon also in case any issues with his shunt. She said his bladder is full of stones. She said he has lots of appts coming up so anything that he would need to have done let her know please. Please advise documented in this encounter [facility] 03-06-2024 Telephone encounter Note Ok. Thank her for letting me know. We will wait and see how he does. [facility] 03-06-2024 Telephone encounter Note Patient sister Darrion calling she is letting PCP know that brother is scheduled for surgery on 04/12/2024 diverticulectomy bladder and having Neuro surgeon also in case any issues with his shunt. She said his bladder is full of stones. She said he has lots of appts coming up so anything that he would need to have done let her know please. Please advise [facility] 02-29-2024 History of Present illness Narrative POPULATION HEALTH NAVIGATION OUTREACH Action/FYI Spoke to patient regarding Annual Medicare Wellness and patient declined scheduling. Reason for Outreach Care Gap/HCC or Scheduling Wellness Visits Care Gaps due: Medicare Annual Wellness Visit Patient Contacted: Spoke to patient/parent/or legal guardian Patient identified by name and : Yes Care Gap/HCC/Scheduling Wellness actions taken: Patient declined: Not interested in scheduling Navigation Signature: Lety Trevizo MA February 29, 2024 9:51 AM documented in this encounter [facility] 02-21-2024 History of Present illness Narrative Images from the original note were not included. [facility] UROLOGY NEW PATIENT CLINIC NOTE SERVICE DATE: 02/21/2024 NAME: Jian Altamirano REFERRED BY: SELF CHIEF COMPLAINT Bladder stone HISTORY OF PRESENT ILLNESS Mr. Altamirano is a 58 year old male with a history of spina bifida, shunted hydrocephalus who presents for evaluation for recurrent UTIs Lives w sister who is an POWERHOUSE OILER and provides care (Darrion) Bladder managed with urethral cath She changes this once a month without issue Recently has had issues irrigating tube UTIs He does have neurogenic bowel - they feel current regimen is good - enemas No interest in colostomy No urethral erosion or wounds They have been recommended SPT but they prefer to keep urethral catheter Wheelchair for mobility CT scan reviewed - curvilinear bladder stones (likely formed on hannon) and large posterior right sided bladder diverticulum with large stone Bladder herniated into bl inguinal rings, stone in left Dilated bowel PSH: SOFT SHOE DANCER shunt PAST MEDICAL HISTORY PAST MEDICAL HISTORY Diagnosis Date Bowel dysfunction Constipation Hydrocephalus (HCC) Inguinal hernia left - imaging at [facility] Sleep apnea Spina bifida (HCC) Urinary retention PAST SURGICAL HISTORY PAST SURGICAL HISTORY Procedure Laterality Date CRTJ SHUNT [id number] TERMINUS EGD W/O BRSH SPEC VARICIES INJ 08/06/2021 PAST SURGICAL HISTORY OF repair of hamstring FAMILY HISTORY FAMILY HISTORY Problem Relation Age of Onset Allergies Father Stroke Other Arthritis Other Cancer Brother lung cancer Asthma Sister other (head injury) Sister SOCIAL HISTORY Social History Tobacco Use Smoking status: Never Smokeless tobacco: Never Substance Use Topics Alcohol use: No Drug use: No MEDICATIONS Current Outpatient Medications Medication Sig prucalopride (MOTEGRITY) 2 mg tab tablet Take 1 tablet (2 mg) by mouth once daily. ciprofloxacin HCl (CIPRO) 250 mg tablet Take 1 tablet by mouth two times a day for 7 days. metoclopramide HCl (REGLAN) 5 mg tablet Take 1 po up to tid prn constipation baclofen 5 mg tablet Take 1 tablet by mouth three times a day. omeprazole (PRILOSEC) 20 mg capsule Take 1 capsule by mouth daily before breakfast. 1/2 hr before meal. linaCLOtide (LINZESS) 290 mcg capsule Take 1 po qd bisacodyl (DULCOLAX) 10 mg supp Bisacodyl Active 10 MG RC NEEDED 0 January 24, 2022 10:15am OTC No current facility-administered medications for this visit. CURRENT ALLERGIES Allergies As of Date: 02/21/2024 Allergen Noted Reaction CONTRAST DYE 10/29/2010 Anaphylaxis FD AND C BLUE NO.1 07/29/2006 IODINATED CONTRAST MEDIA 12/11/2020 Anaphylaxis MACRODANTIN [NITROFURANTOIN MACRO*10/29/2010 GI Upset NITROFURANTOIN 12/11/2020 GI Upset PHENYTOIN 07/29/2006 Fully Assessed 02/21/2024 COMPLETE REVIEW OF SYSTEMS REVIEW OF SYSTEMS See hpi OBJECTIVE PHYSICAL EXAM: Sister served as diesel instructor 02/21/24 1232 BP: 127/84 BP Site: Left Arm BP Position: Sitting BP Cuff Size: Regular Adult Pulse: 87 There is no height or weight on file to calculate BMI. 02/21/24 1232 BP: 127/84 BP Site: Left Arm BP Position: Sitting BP Cuff Size: Regular Adult Pulse: 87 General: pleasant Psych: euthymic, NAD Neuro: A&Ox3. CV: normal perfusion, hemodynamically stable Resp: normal effort Belly soft Bl inguinal hernias Circ phallus, testes down Hannon in place with no urethral erosion wheelchair DATA Labs Lab Results Component Value Date/Time WBC 6.33 10/12/2023 04:26 PM WBC 12.52 (H) 07/30/2021 12:53 PM HB 13.4 10/12/2023 04:26 PM HB 15.3 07/30/2021 12:53 PM HCT 41.2 10/12/2023 04:26 PM HCT 47.4 07/30/2021 12:53 PM PLT 347 10/12/2023 04:26 PM PLT 362 07/30/2021 12:53 PM NA 129 (L) 10/25/2023 11:00 AM NA 129 (L) 07/30/2021 12:53 PM K 4.4 10/25/2023 11:00 AM K 4.3 07/30/2021 12:53 PM CHLOR 94 (L) 10/25/2023 11:00 AM CHLOR 91 (L) 07/30/2021 12:53 PM CO2 22 10/25/2023 11:00 AM CO2 21 (L) 07/30/2021 12:53 PM BUN 9 10/25/2023 11:00 AM BUN 13 07/30/2021 12:53 PM CREAT 0.70 (L) 10/25/2023 11:00 AM CREAT 0.73 07/30/2021 12:53 PM Imaging Reviewed as above ASSESSMENT/PLAN 1. Neurogenic bladder - ICD9: 596.54, ICD10: N31.9 (primary diagnosis) 2. 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) - ICD9: 741.03, ICD10: Q05.2 3. Bladder stone - ICD9: 594.1, ICD10: N21.0 4. Recurrent UTI - ICD9: 599.0, ICD10: N39.0 5. S/P SOFT SHOE DANCER shunt - ICD9: V45.2, ICD10: Z98.2 6. Diverticulum of bladder - ICD9: 596.3, ICD10: N32.3 7. Congenital hernia of bladder - ICD9: 756.71, ICD10: Q79.51 58 M w spina bifida, NGB/B Large bladder stone in R posterior tic + bl bladder containing hernias with stone on left, stone within bladder lumen Discussed options Sister and patient strongly prefer to keep urethral catheter over SPT or diversion and he has no erosion Recurrent UTI and catheter clogging likely from stone Discussed open cystolitholapaxy + diverticulectomy Will discuss w hernia team concurrent repair Discussed risks - bleeding, infection, damage to nearby structures, bladder leak, ureteral injury requiring reimplant, shunt infection Requests follow up with neurosurgery Needs follow up with GI given severe bowel dilation on last scan in Nov Cystatin C with preops Brea Florentino MD Associate Staff [facility] Department of Urology I spent a total of 40 minutes on the date of the service which included preparing to see the patient, [id number] patient care, completing clinical documentation, obtaining and/or reviewing separately obtained history, performing a medically appropriate examination, counseling and educating the patient/family/caregiver, and ordering medications, tests, or procedures. >50% of time was devoted to patient counseling. documented in this encounter [facility] 02-20-2024 Miscellaneous Notes Patient's request for medication is as follows: Requested Prescriptions Pending Prescriptions Disp Refills prucalopride (MOTEGRITY) 2 mg tab tablet 30 tablet 3 Sig: Take 1 tablet (2 mg) by mouth once daily. Please send this med to [facility] in [place], [place]. documented in this encounter [facility] 02-14-2024 Miscellaneous Notes Janay nurse informed and states will make Jian's sister Darrion aware. Wilfredo Monet MA Both organisms he grew were sensitive to cipro. Rx sent Janay- NEIL- [facility]- phoned for results of urine cx. Given provider's message from previous encounter. Reports sister usually does not know if patient having s/s of UTI. Reports they live in an unclean environment and flush the catheter daily, even though the nurses tell them not to. Reports she just spoke with , who reports the hannon catheter is now obstructed, and the urine is cloudy. Cori states this usually means patient has a UTI. Cori is going to patient's home to change it. Cori thinks patient should start on an AB so UTI does not get worse. GISSELLE Mar. Please advise Cormyriam- [phone] documented in this encounter [facility] 02-13-2024 Miscellaneous Notes Spoke with patients Darrion deng and relayed result. She verbalized understanding. States no s/s of infection currently. Wilfredo Monet MA The more resistant organisms he had are gone. Again we expect some bacteria to show in the urine since he has the chronic hannon. Any s/s of infection right now? Cloudy urine, blood or fever? Final urine culture back today. Scan on 02/13/2024 8:36 AM by Provider, ZOE Head: VEE documented in this encounter [facility] 01-27-2024 Miscellaneous Notes Spoke with Johanna. Isadora deng reported to home health that Jian has been feeling better and she knows what to look for and will contact home health immediately with any issues. Darrion was made aware that no ATB was being sent in for patient at this time by home health and she verbalized understanding of this. She also was aware of the orders to recheck urine after next hannon change. See all the previous notes. There is nothing I can put him on to treat for it. He is growing multiple resistant organisms in his urine. People with catheters will usually show multiple organisms. These often represent colonization not a uti. Again, keeping him on an oral antibiotic that will not work only makes his resistance higher so when he gets an infection, nothing would treat it. If he is showing signs of infection would need to go to er to evaluate for admission. If no symptoms, simply keep off antibiotics and watch for issues and recheck urine after next hannon change. Patient sister Darrion returned call said she is out of state and her phone does not have enough bars may cut on the call. Went over notes from Dr Estes and she is asking what is Dr putting him on in place of the keflex? She is calling home health office after she hangs up with me. Please advise Johanna RN with [facility] called and reports she wasn't able to get a hold of Pts sister, but she left a VM. She was asking when Pt was on Keflex. I told her Dr Estes prescribed it on 01/23/24 through 01/27/24. She said they hadn't been out this week, so that is why they didn't;t have it on their list. Called and spoke with Johanna TREJO with [facility] and advised her of ucx and relayed Dr. Estes's message. She verbalized understanding and states she would do her best to get in contact with pt's family. Wilfreod Monet MA Can we call the since family is not returning our calls. Urine cultre is growing highly resistant antibiotics and is suggestive of colonization. See below. Stop antibiotic. Can recheck urine culture in one month after next hannon change Also if any s/s of infection will need to go to ER. 2nd attempt to reach sister, Darrion Retry family again. Still have not contacted us back. Is growing even more resistant bacteria. If he has any s/s of infection, needs to go to ER. Let us know how doing. Blaire- [facility] lab, reporting urine results. Reports yesterday urine cx showed e-coli, today urine cx also showing VRE. Left vm for patient to return call to nurse for provider's message. Shows multiple forms of bacteria so urine may be just colonized from having a hannon and may not be a uti. Only oral antibiotic that covers the one resistant bacteria is macrodantin which causes him gi upset. See how doing. Results on desk for review. Left message for sister Darrion to call office. Many of those are very resistant and may require injectable antibiotics. Can we pull the culture results from [facility] Can we check on how he is doing? Alivia with [facility] called with urine culture results. Urine culture is growing ESBL ecoli. Stephanie Velez LPN documented in this encounter [facility] 01-24-2024 Miscellaneous Notes Pts sister called and is notified of providers results and instructions. She voices understanding. Jane Wiggins RN Left a message for sister Darrion. Urine culture is pending.l urine does show blood and white cells. (May be normal given hannon)]rx sent in until culture back. documented in this encounter [facility] 01-23-2024 Miscellaneous Notes Orders sent as requested. Ok to send order Mercy, [facility], reports sister phoned her, this morning, to report she thinks the hannon cath is clogged. Mercy went to pt's home, and was unable to irrigate the hannon, so changed the catheter. [facility]cy also collected a urine sample. Asking pcp to send order for UACNS to [facility], Fax @ [phone] documented in this encounter [facility] 01-11-2024 Miscellaneous Notes Faxed orders signed by Azam Virgen PA-C for urological supplies to [facility]. Mabel Lopze LPN documented in this encounter [facility] 12-28-2023 Miscellaneous Notes noted Reuben, nurse with [facility] calling to update Dr. Estes that pt's BP reading today was 145/98 and recheck was 145/100. Patient asymptomatic. Pt's sister states she will log pt's BP's and call in with more readings this week. MIGNON: 10/04/23 NOV: not scheduled Please call pt's sister if provider has any orders. Melodie Kim, NEIL documented in this encounter [facility] 12-21-2023 Miscellaneous Notes Yes as below or typically 30 min prior to meal. Spoke with Jian Altamirano( cristobal Tejadabeth @ ) on December 21, 2023. Lesli wanted to clarify the time of taking the linaCLOtide (LINZESS) 290 mcg capsule She stated on bottle it stated 6 am . Take 1 by mouth daily. Informed her that was the correct time to give patient medication. Ms. Ballesteros verbalized understanding. Maryan Juarez LPN Sister/Caregiver called. Need clarification how Jian is supposed to take dosing of Linzess. Can she please speak to the RN? Says brother originally saw Dr. Nazario, and then Liz who left. documented in this encounter [facility] 10-28-2023 Miscellaneous Notes Sister, Darrion, notified. She verbalized understanding. Rich Guajardo Can please let patient/caregiver know that I received his labs. The cortisol level was normal. His sodium level is low, but stable. Please continue to do what you are doing. Yvette Gao APRN.KAREN Patient's sister, Darrion calling for Cortisol result done yesterday 10/25/23. Advised her provider has not yet reviewed but the result is normal. She states she will continue to limit fluids as previously instructed by provider. Dalia Floyd RN documented in this encounter [facility] 10-25-2023 History of Present illness Narrative Patient presents to lab for ACTH Stim testing. Denies any problems at this time. Tolerated injection well. Ted Shen LPN documented in this encounter [facility] 10-21-2023 Miscellaneous Notes Patient scheduled for nurse visit 10/25/23 to receive ACTH Stim testing. Please place order for Cortrosyn injection at this time. Ted Shen LPN documented in this encounter [facility] 10-14-2023 Miscellaneous Notes TC to pt sister, Darrion, notified of results/provider instructions. She verbalized understanding. Rich Guajardo Can please let patient caregiver know that we received his lab results. His sodium is still low, but did come up some. Please continue to limit fluids some -- less plain water and more electrolytes. I put in some additional blood tests to complete -- a cortisol level and an ACTH stimulation test. Please help schedule testing (he will need an injection of medication and it will require multiple blood tests at different time intervals). Yvette Gao APRN.CNP documented in this encounter [facility] 10-14-2023 History of Present illness Narrative TRANSITION CARE MANAGEMENT (TCM) FOLLOW-UP NOTE Provider Action/FYI Discharge Network Status: [id number] (OON) Discharge Summary: Pt discharged from [facility] on 09/22/23. Admitted for: UTI Concerns: Attempted to reach pt for TCM follow up, VM left with CC contact information. Encouraged to contact PCP for questions or concerns. Extension Edger plan for next outreach: Will continue to follow during TCM 30 day period IRENE Education Ordered -: No Signature Katiana Bill RN October 14, 2023 documented in this encounter [facility] 10-04-2023 Instructions Yvette Gao APRN.CNP - 10/04/2023 3:15 PM EST Get labs. Let us know if any problems/concerns. documented in this encounter [facility] 10-04-2023 History of Present illness Narrative Hospital Follow Up Provider Documentation Jian Altamirano is a 57 year old male here today for a follow up from recent hospitalization. I have reviewed the patient's hospital course including discharge summary, discharge medications , and follow up needs with the patient and any family members present at today's visit. HPI Patient presents today for hospital follow-up. Presents w/ sister/caregiver. He was admitted to [facility] on 09/20/2023. He was discharged on 09/22/2023. He went to the emergency room with a temperature of 101.7. He had been having lots of sediment in his urine, intermittent leaking around the catheter for possibly a week. He was only having a scant amount of urine out of his catheter after it had been changed. He had not had a bowel movement in 2 days prior to hospital presentation, he does have a history of chronic constipation. He had been previously admitted for ileus and bowel obstructions in the past. His caregiver also had recently had COVID. His workup was positive for COVID-19. He also appeared to have a complicated urinary infection. Septic workup was completed. He was given empiric Rocephin 1 g IV. He was hyponatremic. He was admitted for IV antibiotics and pending cultures. He did not meet the criteria for sepsis. His chest x-ray was negative for pneumonia. He has chronic recurrent ileus. He generally tends to respond well to conservative measures. Bowel regimen is primarily administered by his sister consisting of suppositories and enemas. His urine grew E. coli and Proteus Mirabili's. He was discharged on the hospital with Cipro. He was hyponatremic in the hospital. Reports this he chronically has had issues. He drinks lots of fluids to help with his urination and bowels. Refers that he has been doing well since discharge. They work very hard with his bowel regimen. He denies any CP/SOB/palpitations. He has a little cough. Sometimes some decreased appetite d/t constipation, but is eating and drinking okay. He has an indwelling catheter and they report it has been functioning well. PHYSICAL EXAMINATION BP 132/90 Pulse 87 Resp 16 SpO2 98% GENERAL: well appearing, alert, in no acute distress HEART: regular rate and rhythm. No murmur, rubs or gallops. LUNGS: clear to auscultation, no wheezing, rhonchi, or crackles ABDOMEN: soft, non-tender, non-distended, no masses or organomegaly Neuro: wheelchair bound. Answers questionsappropriately. ASSESSMENT/PLAN: 1. Acute cystitis without hematuria - ICD9: 595.0, ICD10: N30.00 (primary diagnosis) Symptoms improved. Follow-up with urology. Continue to monitor. 2. Hyponatremia - ICD9: 276.1, ICD10: E87.1 Repeat. They have tried to cut back a little bit on his fluid intake. - BASIC METABOLIC PNL 3. Leukocytosis, unspecified type - ICD9: 288.60, ICD10: D72.829 Recheck. - CBC + DIFF 4. Gastroparesis - ICD9: 536.3, ICD10: K31.84 Continue per GI motility. 5. COVID-19 - ICD9: 079.89, ICD10: U07.1 Symptoms improved. Discussed treatment plan and patient voices understanding. Patient's questions answered appropriately. Medications and potential side effects were discussed and patient voices understanding. Return to the office as scheduled or as needed for worsening/no improvement. Yvette Gao APRN.[employer] HAND FINISHER documented in this encounter [facility] 09-30-2023 History of Present illness Narrative TCM Home Visit Referral Source of Stratification: [facility] Admission Status: Discharged Readmission Risk Score: SHAMA Score: Patient meets program referral criteria: No Patient does not qualify for High Risk TCM Home Visit program due to: Discharged home, does not meet program criteria Katiana Bill RN September 30, 2023 9:30 AM TRANSITIONAL CARE MANAGEMENT (TCM) COMMUNITY MONITORING PROGRAM Provider Action/FYI: PCP Pt discharged from [facility] on 09/22/23. Admitted for: UTI Per sister Darrion Pt is feeling better, steadily improving Denies CP or acute pain, SOB, N/V, fever or chills Dry cough at times Hannon draining clear yellow BM 09/29 Ambulating with somali crab crutches Appetite is good, eating and hydrating Denies questions or concerns at this time Upcoming appointments PCP 10/04 Copied from Care Everywhere [facility] Start: 09-20-2023 End: 09-22-2023 Elevated white blood cell count, unspecified (09/20/23) Hypo-osmolality and hyponatremia (09/20/23) Urinary tract infection, site not specified (09/20/23) COVID-19 (09/20/23) Disposition: Home Health Service Patient with a fever of 101.7 axillary today according to lawn care worker at home. Hehas been having lots of sediment in his urine, intermittent leaking around the catheter maybe a week. Had the catheter changed just over a week ago and again today. Prior to changing it had about 200 cc out in the catheter, but a scant amount since then and it has been 5 hours. No bowel movement in the last 2 daysbut no vomiting, has a history of chronic constipation for which she is on medication follows with a specialist at [facility], and has been admitted for ileus andbowel obstructions in the past. 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 She statesshe tested positive for COVID about a week ago, she is feeling better but other family members had a 2, and he has had chronic congestion with a little bit of acough lately but no dyspnea. Discharge Orders/Prescriptions New bisacodyl 10 mg Suppository 10 mg [place] DAILY PRN (Reason: Constipation) ciprofloxacin HCl 500 mg tablet 500 mg PO BID Qty: 10 SUMMARY: Discharge Network Status: [id number] (OON) Discharge Pt discharged from [facility] on 09/22/23. Admitted for: UTI Contact made with patient: Yes Hi my name is Katiana Bill RN and I am calling from the [facility] on behalf of your PCP, Clifford Estes MD I understand you were recently in the hospital so I am calling to check in with you to ensure you are feeling well now that you're home. May I ask you a few questions related to your hospital stay and well-being? Yes Contact with patient post discharge, spoke to sister. Niecy Verdugo is involved in patients care. Patient identified [...] outreach ONLY, was a medication review completed? No, partial medication review completed: new medications added per sister's preference. SOCIAL: We would like to make sure you have what you need so that your basics needs are met - including your personal safety, food, housing and medications. Would you like to speak with a social work rock climbing team member to help give you support [...] I will send your request to a wirer street light who will contact and assist you with that appointment. This will give you an opportunity to ask any questions or address any concerns you may have with your PCP. Inform the patient that if they have any questions or concerns prior to that appointment, to call their PCP's office right away. ACTION TAKEN: No action required, patient already has an appointment scheduled. Your doctor would like us to remind you of the recommendations regarding the coronavirus (Covid19) outbreak: Avoid public places as much as possible. Avoid close contact (within 6 feet) with others you don t live with, especially if they are sick. Stay home if you are sick. Wash your hands regularly for at least 20 seconds with soap and water. Wear a cloth mask in public places to help reduce community spread. Do not go to your Doctor s office unless instructed to do so. For any non-emergency symptoms, call your Doctor s office to get instructions on how to manage (we might recommend a telephone or virtual visit). For emergency symptoms, proceed to Emergency Department as usual but inform them of cough and fever symptoms JIE if present (or call on the way if possible). IRENE Education Ordered -: No DIAMOND Ramírez, fine arts instructor [employer] Ground Crew Supervisor [facility] documented in this encounter [facility] 09-28-2023 Miscellaneous Notes Received fax from [facility] [employer] for urological supplies. Patient has not seen Azam in over a year and according to his sister they planned to schedule with Dr. Henriquez. Azam noted on documention that Dr. Henriquez needs to be the one to sign orders and faxed to [facility] [employer] [employer] to let them know that. Mabel Lopez LPN documented in this encounter [facility] 09-26-2023 Miscellaneous Notes Call to [facility] and notified her of message below from Provider, verbalized understanding. Morenita Neil Ma Ok to give order for social work lecturer consult order to eval and Tx.. [facility] calls to ask for a social work lecturer eval and tx order. Family is requesting SW to assist with some insurance issues. [facility] requests call back at [phone]. Daniela Nelson RN documented in this encounter [facility] 09-22-2023 Miscellaneous Notes Patient was actually admitted to [facility] 09/20/23 and discharged 09/22/23. Olinda Tinoco [employer] Manufacturing Coordinator for patient, calling to update provider that pt went to [facility] ER on 09/20/23 and has been admitted for UTI and COVID. Melodie Kim RN documented in this encounter [facility] 09-22-2023 Discharge summary Note Date/Time September 22, 2023 1:14[facility] Medical Records Department [address] [place] [address] Instructions for Home/Discharge Instructions 09/22/23 1110 MR#: [id number] Acct: [id number] Name: JIAN ALTAMIRANO Rep #:[id number] : 1965 57 From: London Thopmson PCP: Dr. Clifford Estes MD Status:ADM I N Discharge Instructions Diet Discharge Diet: Light diet - advance as tolerated ( Soft diet easy to chew, protein rich diet.) and - Activity Discharge Activity: Return to Normal Activity Weight Bearing Status: Partial weight bearing Dressing / Incision Call your doctor if you observe: Fever of 101 or Higher, Coldness, Increased Pain, Numbness or Tingling, Change in Color, Inability to urinate, Inability to have a bowel movement, Shortness of breath, Dizziness, Fainting spells, Swellingin the ankles, Chest pain, Prolonged hiccupping, Increased palpitations (irregular heartbeat) and Calf discomfort Follow Up Care When: IN 2 WEEKS Test Results: Test results from this visit will be discussed in further detail at your follow-up appointment, if applicable. Discharge Plan Admission Admit Date/Time: 09/20/23 21:57 Attending Provider: London Braden Primary Care Provider: Clifford Estes Consulting Providers: Gavino Pena; Richard Palacio Instructions Additional Instructions / Restrictions: Follow-up in [facility] urologist for kidney stones Discharge Orders/Prescriptions Prescriptions: New bisacodyl 10 mg Suppository 10 mg [place] DAILY PRN (Reason: Constipation) Qty: 0 0RF ciprofloxacin HCl 500 mg tablet 500 mg PO BID Qty: 10 0RF Continued baclofen 5 MG tablet 5 mg PO TID Patient Comments: Hold for sedation/lethargy Linzess 290 mcg capsule 290 mcg PO DAILY omeprazole 20 mg capsule,delayed release(DR/EC) 20 mg PO DAILY Motegrity 2 mg tablet 2 mg PO DAILY tamsulosin 0.4 mg Capsule 0.4 mg PO 1730 metoclopramide HCl [Reglan] 5 mg tablet 5 mg PO Q6H PRN (Reason: nausea and vomiting) Referrals / Follow Up: Clifford Estes MD [Primary Care Provider] - Within 2 Weeks Chang Grant MD [Med Staff - Active Staff] - Within 1 Month (for recurrent ileus) Disposition Disposition (needs filled in before D/C Order can be placed): Home Health Service 09/22/23 1319<Electronically signed by London Braden MD>London Braden MD CC: Dr. Gavino Pena DO; Dr. Richard Palacio DO; Dr. Clifford Estes MD ~ Signed [facility] Work Phone: [phone]) 580-760711-09-2023 Miscellaneous Notes* Telephone Encounter - KristinekathrynKishor - 09/22/2023 12:37 PM EST Patient's request for medication is as follows: Requested Prescriptions Pending Prescriptions Disp Refills prucalopride (MOTEGRITY) 2 mg tab tablet 30 tablet 3 Sig: Take 1 tablet (2 mg) by mouth once daily. Please send this med to [facility] in [place], [place]. [facility] Progress note Author Richard Palacio [facility] September 21, 2023 2:09pm Note Date/Time September 21, 2023 8 :27am [facility] Medical Records Department [address] [place] [address] Progress Note - Hospitalist 09/21/23820 MR#: [id number] Acct: [id number] Name: NISHAMINAJIAN Rep #:[id number] : 1965 57 From: Richard Palacio DO PCP: Dr. Clifford Estes MD Status:ADM I N Location: [place] [address] Reason for Visit Reason for Visit: Diagnoses Elevated white blood cell count, unspecified (09/20/23) Hypo-osmolality and hyponatremia (09/20/23) Urinary tract infection, site not specified (09/20/23) COVID-19 (09/20/23) Presence of other specified devices (09/20/23) Subjective Subjective Discussed the case with the patient's sister he said bedside. Stated he has nothad much in way of bowel movements and she is concerned that he may start developing another ileus. I requested to be able to give him enemas. Objective Data Objective Data Vital Signs: Vital Signs Temp Pulse Resp BP Pulse Ox O2 Del Method 37.1 C 84 16 110/67 95 Room Air 09/21/23 05:30 09/21/23 05:30 09/21/23 05:30 09/21/23 05:30 09/21/23 05:30 09/21/23 05:30 Oxygen Delivery Method Room Air Weight: 48.1 kg Body Mass Index (BMI) 18.8 Intake & Output: Intake and Output for Last 24 Hours 09/19/23 09/20/23 09/21/23 23:59 23:59 23:59 Intake Total 1000 / 1000 507.5 / 507.5 Output Total 200 / 200 1250 / 1250 Balance 800 / 800 -742.5 / -742.5 Lab / Micro Data 09/21/23 04:36 09/21/23 04:36 Labs: Laboratory Results - last 24 hr 09/20/23 19:35: WBC 19.4 H, RBC 4.35 L, Hgb 12.3 L, Hct 36.8 L, MCV 84.6, MCH 28.3, MCHC 33.4, RDW Std Deviation 39.8, RDW Coeff of Frieda 12.9, Plt Count 366, MPV 9.7, Immature Gran % (Auto) 0.500, Neut % (Auto) 80.2 H, Lymph % (Auto) 5.9 L, [place] % (Auto) 12.8 H, Eos % (Auto) 0.4, Baso % (Auto) 0.2, Absolute Neuts (auto) 15.6 H, Absolute Lymphs (auto) 1.14, Nucleated RBC % 0, Differential Comment SCANNED, Diff Path Review March, PT 14.5, INR 1.1, APTT 32.9, Sodium 124 L, Potassium 3.6, Chloride 90 L, Carbon Dioxide 27.0, Anion Gap 7, BUN 12, Creatinine 0.68 L, Est GFR (MDRD) Af Amer 155, Est GFR (MDRD) Non-Af 128, BUN/Creatinine Ratio 17.6, Glucose 120 H, Lactic Acid 0.9, Calcium 8.3 L, Total Bilirubin 0.50, AST 11 L, ALT 16, Alkaline Phosphatase 62, Total Protein 7.0, Albumin 3.0 L, Globulin 4.0, Albumin/Globulin Ratio 0.8 L 09/20/23 19:45: Urine Color Yellow, Urine Clarity Cloudy, Urine pH 7.0, Ur Specific [place] 1.010, Urine Protein 100 H, Urine Glucose (UA) Normal, Urine Ketones 15 H, Urine Occult Blood 50 H, Urine Nitrite Positive H, Urine BilirubinNegative, Urine Urobilinogen Normal, Ur Leukocyte Esterase 500 H, Urine RBC 10-25 SEEN, Urine WBC 25-50 SEEN, Ur Squamous Epith Cells 0 SEEN, Urine Bacteria 2+, Urine Mucus 0 SEEN 09/21/23 04:36: WBC 13.4 H, RBC 4.06 L, Hgb 11.5 L, Hct 34.7 L, MCV 85.5, MCH 28.3, MCHC 33.1, RDW Std Deviation 40.3, RDW Coeff of Frieda 13.0, Plt Count 335, MPV 10.1, Immature Gran % (Auto) 0.400, Neut % (Auto) 71.8 H, Lymph % (Auto) 15.7 L, [place] % (Auto) 11.8 H, Eos % (Auto) 0.2, Baso % (Auto) 0.1, Absolute Neuts (auto) 9.6 H, Absolute Lymphs (auto) 2.09, Nucleated RBC % 0, DifferentialComment SCANNED, Diff Path Review March, Sodium 129 L, Potassium 3.6, Chloride 98, Carbon Dioxide 25.0, Anion Gap 6, BUN 8, Creatinine 0.54 L, Estim Creat Clear Calc 105.38, Est GFR (MDRD) Af Amer 202, Est GFR (MDRD) Non-Af 167, BUN/Creatinine Ratio 14.8, Glucose 109 H, Calcium 8.0 L Micro: Microbiology 09/20/23 19:29 Nasal Secretion SARS-CoV-2 Antigen (Rapid) - Final SARS-CoV-2 (COVID 19) Radiography Diagnostic Testing: Radiology Impression Chest X-Ray 09/20/23 19:50 IMPRESSION: 1. No acute pathology in the chest. 2. Mild gaseous distention of bowel in the upper abdomen partially visualized. No discrete evidence of subdiaphragmatic air. Electronically Signed: Conor Carrasco DO at 20:06 EST , Rhythm Strip Rhythm Strip: Sinus Rhythm Rate: 95 Ectopy: None Physical Exam Const alert and no apparent distress HEENT head/scalp atraumatic and moist oral mucous membranes Resp normal respiratory effort and no retractions Cardio regular rate, regular rhythm, S1 normal heart sound and S2 normal heart sound GI normal to inspection, nondistended, normoactive bowel sounds, soft to palpation,non-tender and non-distended Extremity normal to inspection Assessment & Plan Assessment/Plan (1) Complicated UTI (urinary tract infection): PLAN: CAUTI. Catheter changed. Antibiotics with ceftriaxone. Await final urine culture results. (2) COVID-19: PLAN: On room air. Chest x-ray showed no pneumonia. No treatment for COVID-19 indicated at this time. Positive test on the . Patient will need to quarantine through the . (3) Acute hyponatremia: PLAN: Hyponatremia of 124 mmol/L present on admission compounding #1 and #2- Give normal saline IV fluids and recheck BMP in the a.m. to ensure improvement. Improving PLAN: Plan Chronic conditions * History of recurrent ileus: Patient has scans that look like small bowel obstruction but generally respond to conservative measures. Seems to be more consistent with an ileus. Patient has been admitted here on numerous occasions as he surgeons in [place] do not feel that is an actual small bowel obstruction. Patient has responded well to conservative measures. General surgery here has repeatedly declined to be involved with the patient's care as it is beyond their scope given the patient's history of SOFT SHOE DANCER shunt. Currently no ongoing issues at this time but would advise caution with narcotics given this patient's history.Patient sister asking to be able to give him enemas. I feel that would be fine. I would defer to her as she is very intimately involved with his care at home. She is actually administered suppositories and enemas for him in the hospital during previous encounters. * History of normal pressure hydrocephalus since ; status post SOFT SHOE DANCER shunt with seizure disorder - Continue home medications as previous. * History of BPH, bladder diverticulum and bladder stones - Stable. DVT prophylaxis - Lovenox 40 mg subcu daily. I believe the patient's sister was a former nurse, but when the patient is hospitalized previously she is actually very involved in his care in regards to changing him and tending to many of his nursing needs. Charges/Coding Visit Charges Inpatient E&M: 95704 Subs Hosp L2 09/21/23 1409 <Electronically signed by Richard Palacio DO> Cosigner Signature (if applicable): CC: ~ Signed [facility] Work Phone: 1(509) 634-444911-08-2023 Miscellaneous Notes* Telephone Encounter - Mabel Lopez LPN - 09/21/2023 2:56 PM EST Called Darrion, Verified name and date of of patient. Darrion does validate that her brother is stillat the [facility]. She agrees that home health is important for assistance/catheterchanges due to transportation issues, difficulties and safety of transfers. Darrion is aware to make sure that upon discharge from hospital that there is a plan in place for his home health needs. Per Darrion she is planning to schedule urology appointment with Dr. Henriquez for patient- last office visit 10/12/2022. Mabel Lopez LPN * Telephone Encounter - Mabel Lopez LPN - 09/21/2023 2:51 PM EST Called Janay, watch caser with [facility]. Left message on secured voicemail: Nursemanage at Clinic informed of home health concerns and does advise that home health and [facility] coordinate care for home health catheter changes due to limitations of patient and safety. Mabel Lopez LPN * Telephone Encounter - Mabel Lopez LPN - 09/21/2023 1:11 PM EST Janay with [facility] called. She is concerned that patient is getting frequent Urinary Tract Infections, that patients sister is not alerting them to patient having symptoms, Patient is now at [facility], patients sister is doing unsanitary flushes, opening sterile containers and verbalized her over all frustration with the sister stating they are hoping not to take patient back once he is discharged from the hospital this time. Janay questioned why patient has never been placed on a routine antibiotic since he has had so many UTI's- we have not seen patient in over a year. When patient was seen at the clinic for catheter changes he had been having more difficulties being transferred. His sister was pleased when home health took over catheter changes. Pleasereview and advise. Mabel Lopez LPN [facility] History and physical note Author Gavino Burden [facility] September 21, 2023 7:38am Note Date/Time September 20, 2023 9 :43pm [facility] Medical Records Department [address] [place] [address] H&P Exam - Hospitalist 09/20/23 2141 MR#: [id number] Acct: [id number] Name: JIAN ALTAMIRANO Rep #:[id number] : 1965 57 From: Gavino Maldonado DO PCP: Dr. Clifford Estes MD Status:ADM I N Location: [place] [id number] 1 HPI - General General Date of Admission: 09/20/23 Date of Service: 09/20/23 Chief Complaint: Fever and Decreased UOP. HPI Narrative JIAN ALTAMIRANO, is a 57 M past medical history of normal pressure hydrocephalus since ; status post SOFT SHOE DANCER shunt, seizure disorder, history of urinary retention with chronic indwelling Hannon catheter with frequent UTIs, history of urethral stricture; status post release, history of ileus, gastroparesis and chronic intestinal pseudoobstruction; on Linzess and as needed Reglan,history of chronic hyponatremia, BPH, history of bladder diverticulum, history of bladder stones and recently diagnosed COVID-19 approximately 1 week ago who presents to [facility] ER complaining of fever and decreased urinary output. Mr. Altamirano is a suboptimal historian at this time so augmented history was gathered from his older sister who is his lawn care worker. She reported he had been experiencing lots of sediment in his urine with intermittent urine leaking around his Hannon catheter for approximately 1 week with his Hannon just changed earlier today. Then he spiked a temp up to 101.7 ?Fthat coincided with a decrease amount of urine of only approximately 200 cc overthe past 5 hours. He admits to a mild pain in his abdomen that is aching in nature cannot further elaborate. She also reports that he has a chronic congested cough and chronic constipation with no BM in the past 2 days but she denies acute shortness of breath or other significant symptoms at this time. Inthe ER his urinalysis was positive for acute cystitis related to chronic Hannon for which she was started on IV Rocephin with leukocytosis of 19.4 present on admission complicated by subacute COVID-19 with positive test this admission andhyponatremia of 124 mmol/L present on admission in the ER. He did not meet criteria for sepsis and did not appear to be acutely ill enough to require ICU admission at this time. He was then admitted to the PCU for ongoing care for a stay is expected to be greater than 48 hours [facility] Medical History Bladder diverticulum Bladder stones BPH (benign prostatic hyperplasia) Catheter-associated urinary tract infection Chronic hyponatremia Chronic indwelling Hannon catheter Chronic indwelling Hannon catheter Chronic intestinal pseudo-obstruction Gastroparesis History of urinary retention Hydrocephalus Hydrocephalus Hypertension Hyponatremia Hyponatremia Ileus Inguinal hernia Normal pressure hydrocephalus Seizures Home Medications baclofen 5 mg tablet 5 mg PO TID MUSCLE SPASMS 07/21/22 [History Last Taken 02/20/23] linaclotide 290 mcg capsule (Linzess) 290 mcg PO DAILY IRRITABLE BOWELS 08/09/23[History Last Taken Unknown] omeprazole 20 mg capsule,delayed release 20 mg PO DAILY ACID REFLUX 08/09/23 [History Last Taken Unknown] prucalopride 2 mg tablet (Motegrity) 2 mg PO DAILY CHRONIC CONSTIPATION 08/09/23[History Last Taken Unknown] tamsulosin 0.4 mg capsule 0.4 mg PO 1730 PROSTATE 08/09/23 [History Last Taken Unknown] metoclopramide HCl 5 mg tablet (Reglan) 5 mg PO Q6H PRN nausea and vomiting 09/20/23 [History Last Taken Unknown] Allergy/AdvReac Type Severity Reaction Status Date / Time Iodinated Contrast Media Allergy Anaphylaxis Verified 09/20/23 18:51 [Iodinated Contrast Media - IV Dye] nitrofurantoin AdvReac Upset Verified 09/20/23 18:51 Stomach Family History Father Heart disease Kidney stones Prostate disease Brother Kidney stones Other Cancer Peptic ulcer disease Surgical History S/P release of urethral stricture S/P SOFT SHOE DANCER shunt SOFT SHOE DANCER (ventriculoperitoneal) shunt status Social History household members: family Smoking Status: Never smoker alcohol intake: never substance use type: does not use ROS ROS Narrative Review of systems cannot be fully completed due to patient's encephalopathy. Review of Systems ROS Unobtainable: due to encephalopathy Constitutional Constitutional: Reports fatigue Genitourinary Genitourinary: Reports burning urination, difficulty urinating and dysuria Musculoskeletal Musculoskeletal: Reports myalgias Neurologic Neurologic: Reports confusion Psychiatric Psychiatric: Reports depression Vital Signs Vital Signs Vital Signs: 09/20/23 18:49 09/20/23 19:31 09/20/23 19:47 Temperature 97.8 F Temperature Source Temporal Pulse Rate 105 H 96 Respiratory Rate 18 16 Blood Pressure 137/94 H 139/93 H Blood Pressure Mean 108 108 Pulse Ox 95 95 95 Oxygen Delivery Method Room Air Room Air Room Air 09/20/23 19:47 09/20/23 20:45 09/20/23 21:02 Temperature 98.9 F 98.6 F Temperature Source Oral Oral Pulse Rate 97 95 92 Respiratory Rate 15 16 15 Blood Pressure 136/93 H 113/66 116/74 Blood Pressure Mean 107 81 88 Pulse Ox 96 95 95 Oxygen Delivery Method Room Air Room Air Room Air Physical Exam Const alert, no apparent distress and average body habitus General Appearance: cooperative Orientation / Consciousness: confused HEENT normocephalic, head/scalp atraumatic, hearing grossly normal bilaterally and moist oral mucous membranes Eyes PERRL, EOMs intact bilaterally and conjunctivae normal Neck no lymphadenopathy Resp normal respiratory effort, no retractions, no use of accessory muscles and clearto auscultation bilaterally Cardio regular rate and regular rhythm GI normal to inspection, nondistended, normoactive bowel sounds, soft to palpation,non-tender and non-distended GI Narrative: Patient has a SOFT SHOE DANCER shunt in place in the right side of his abdomen. Extremity Extremity Narrative: Patient is atrophied foot muscles bilaterally; right greater than left. Skin Skin Narrative: Negative for rash. Neuro CN's II-XII intact bilaterally and moves all extremities Sensorium / Orientation: awake, alert, oriented to person and oriented to place Speech: speech normal Psych Mood & Affect: depressed Results Medical Records Data Attestation: I reviewed the patient's medical records Lab / Micro Data Attestation: I reviewed the patient's lab results. 09/21/23 04:36 09/21/23 04:36 Labs: Laboratory Results - last 24 hr 09/20/23 19:35: WBC 19.4 H, RBC 4.35 L, Hgb 12.3 L, Hct 36.8 L, MCV 84.6, MCH 28.3, MCHC 33.4, RDW Std Deviation 39.8, RDW Coeff of Frieda 12.9, Plt Count 366, MPV 9.7, Immature Gran % (Auto) 0.500, Neut % (Auto) 80.2 H, Lymph % (Auto) 5.9 L, [place] % (Auto) 12.8 H, Eos % (Auto) 0.4, Baso % (Auto) 0.2, Absolute Neuts (auto) 15.6 H, Absolute Lymphs (auto) 1.14, Nucleated RBC % 0, Differential Comment SCANNED, Diff Path Review March, PT 14.5, INR 1.1, APTT 32.9, Sodium 124 L, Potassium 3.6, Chloride 90 L, Carbon Dioxide 27.0, Anion Gap 7, BUN 12, Creatinine 0.68 L, Est GFR (MDRD) Af Amer 155, Est GFR (MDRD) Non-Af 128, BUN/Creatinine Ratio 17.6, Glucose 120 H, Lactic Acid 0.9, Calcium 8.3 L, Total Bilirubin 0.50, AST 11 L, ALT 16, Alkaline Phosphatase 62, Total Protein 7.0, Albumin 3.0 L, Globulin 4.0, Albumin/Globulin Ratio 0.8 L 09/20/23 19:45: Urine Color Yellow, Urine Clarity Cloudy, Urine pH 7.0, Ur Specific [place] 1.010, Urine Protein 100 H, Urine Glucose (UA) Normal, Urine Ketones 15 H, Urine Occult Blood 50 H, Urine Nitrite Positive H, Urine BilirubinNegative, Urine Urobilinogen Normal, Ur Leukocyte Esterase 500 H, Urine RBC 10-25 SEEN, Urine WBC 25-50 SEEN, Ur Squamous Epith Cells 0 SEEN, Urine Bacteria 2+, Urine Mucus 0 SEEN Micro: Microbiology 09/20/23 19:29 Nasal Secretion SARS-CoV-2 Antigen (Rapid) - Final SARS-CoV-2 (COVID 19) Rhythm Strip Rhythm Strip: Sinus Rhythm Rate: 95 Ectopy: None Radiology Impression Chest X-Ray 09/20/23 19:50 IMPRESSION: 1. No acute pathology in the chest. 2. Mild gaseous distention of bowel in the upper abdomen partially visualized. No discrete evidence of subdiaphragmatic air. Electronically Signed: Conor Carrasco DO at 20:06 EST , Assessment & Plan Assessment/Plan (1) Acute hyponatremia: (2) COVID-19: (3) Complicated UTI (urinary tract infection): (4) Chronic indwelling Hannon catheter: (5) Leukocytosis: PLAN: Plan 1. Acute cystitis in the setting of chronic indwelling Hannon causing infection with leukocytosis of 19.4 present on admission -admit to general medical floor. Continue IV Rocephin and await culture and sensitivity data to narrow antibioticspectrum. Patient's Hannon was changed within the last 24 hours. Give Tylenol as needed for pain or fever. 2. Subacute COVID-19 complicating #1 - Patient has positive test this admissionwith resolving symptoms. Placed on droplet precautions treat supportively with vitamin D3, vitamin C and zinc. 3. Hyponatremia of 124 mmol/L present on admission compounding #1 and #2- Give normal saline IV fluids and recheck BMP in the a.m. to ensure improvement. 4. History of normal pressure hydrocephalus since ; status post SOFT SHOE DANCER shunt with seizure disorder - Continue home medications as previous. 5. History of BPH, bladder diverticulum and bladder stones - Stable. 6. DVT prophylaxis - Lovenox 40 mg subcu daily. Total time: Approximately 55 minutes Charges/Coding Visit Charges Inpatient E&M: 71682 Init Hosp L2 09/21/23 0738 <Electronically signed by Gavino Pena DO> Cosigner Signature (if applicable): CC: Dr. Gavino Pena DO; Dr. Clifford Estes MD~ Signed [facility] Work Phone: 1(658) 421-451211-08-2023 Discharge summary Author Bennett Olivarez [facility] September 21, 2023 12:14am Note Date/Time September 20, 2023 7 :11pm [facility] Medical Records Department [address] [place] [address] Emergency Department Summary 09/20/23 MR#: [id number] Acct: [id number] Name: JIAN ALTAMIRANO Rep #:[id number] : 1965 57 From: Bennett Olivarez MD PCP: Dr. 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 Hehas been having lots of sediment in his urine, intermittent leaking around the catheter maybe a week. Had the catheter changed just over a week ago and again today. Prior to changing it had about 200 cc out in the catheter, but a scant amount since then and it has been 5 hours. No bowel movement in the last 2 daysbut no vomiting, has a history of chronic constipation for which she is on medication follows with a specialist at [facility], and has been admitted for ileus andbowel obstructions in the past. 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 She statesshe tested positive for COVID about a week ago, she is feeling better but other family members had a 2, and he has had chronic congestion with a little bit of acough lately but no dyspnea. 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 Gastroparesis History of urinary retention Hydrocephalus Hydrocephalus Hypertension Hyponatremia Hyponatremia Ileus Inguinal hernia Normal pressure hydrocephalus Seizures Home Medications baclofen 5 mg tablet 5 mg PO TID MUSCLE SPASMS 07/21/22 [History Last Taken 02/20/23] metoclopramide HCl 5 mg tablet (Reglan) 5 mg PO Q6H 30 days #120 tabs 05/16/23 [Rx Last Taken Unknown] linaclotide 290 mcg capsule (Linzess) 290 mcg PO DAILY IRRITABLE BOWELS 08/09/23[History Last Taken Unknown] omeprazole 20 mg capsule,delayed release 20 mg PO DAILY ACID REFLUX 08/09/23 [History Last Taken Unknown] prucalopride 2 mg tablet (Motegrity) 2 mg PO DAILY CHRONIC CONSTIPATION 08/09/23[History Last Taken Unknown] tamsulosin 0.4 mg capsule 0.4 mg PO 1730 PROSTATE 08/09/23 [History Last Taken Unknown] Allergy/AdvReac Type Severity Reaction Status Date / Time Iodinated Contrast Media Allergy Anaphylaxis Verified 09/20/23 18:51 [Iodinated Contrast Media - IV Dye] nitrofurantoin AdvReac Upset Verified 09/20/23 18:51 Stomach Family History Father Heart disease Kidney stones Prostate disease Brother Kidney stones Other Cancer Peptic ulcer disease Surgical History S/P release of urethral stricture S/P SOFT SHOE DANCER shunt SOFT SHOE DANCER (ventriculoperitoneal) shunt status Social History household members: family Smoking Status: Never smoker alcohol intake: never substance use type: does not use ROS ROS ED Review of Systems ROS Unobtainable: due to mental status Constitutional Constitutional ED: Reports fever(s) and malaise Eyes Eyes: Denies change in vision ENT ENT ED: Denies ear pain or sore throat Cardiovascular Cardiovascular: Denies chest pain or palpitations Respiratory/Chest Respiratory/Chest: Reports cough; Denies dyspnea Gastrointestinal Gastrointestinal: Reports abdominal pain and constipation; Denies melena, nauseaor vomiting Musculoskeletal Musculoskeletal: Denies back pain or neck pain Integumentary Denies rash Neurologic Neurologic: Reports weakness; Denies headache(s) EXAM Physical Exam Const Vital Signs: 09/20/23 18:49 09/20/23 19:31 09/20/23 19:47 Temperature 97.8 F Temperature Source Temporal Pulse Rate 105 H 96 Respiratory Rate 18 16 Blood Pressure 137/94 H 139/93 H Blood Pressure Mean 108 108 Pulse Ox 95 95 95 Oxygen Delivery Method Room Air Room Air Room Air 09/20/23 19:47 Temperature 98.9 F Temperature Source Oral Pulse Rate 97 Respiratory Rate 15 Blood Pressure 136/93 H Blood Pressure Mean 107 Pulse Ox 96 Oxygen Delivery Method Room Air Positive well nourished, well developed and cachectic General Appearance ED: well developed, cachectic and NAD Nutritional Appearance: cachectic HEENT Reports moist mucous membranes HEENT Narrative: SOFT SHOE DANCER shunt along with distribution all the way to the right upper quadrant benign nontender without any overlying erythema normocephalic and atraumatic Eyes PERRL and EOMs intact bilaterally Neck full ROM, no lymphadenopathy and supple Resp normal respiratory effort and clear to auscultation bilaterally Cardio regular rate, regular rhythm and no murmurs Rate: Negative for tachycardic GI non-tender and non-distended Auscultation: normoactive bowel sounds Palpation: soft Narrative: Hannon catheter in place, cloudy yellow urine within the catheter without blood. No leakage around the catheter insertion site. Extremity normal to inspection General Extremety ED: Negative for edema, pulses abnormal or tenderness General Extremity: Negative for edema or pulses abnormal Neuro oriented x3 and CN's II-XII intact bilaterally Neuro Narrative: atrophy BLE Sensorium / Orientation: awake and alert Motor Exam: general weakness Psych mental status grossly normal Skin no rashes or lesions noted and no wounds MDM MDM MDM Narrative Medical decision making narrative: Patient's work-up indicates that he does have COVID-19, but he also appears to have a complicated urinary infection. Septic work-up was obtained including blood and urine cultures, and he was given empiric Rocephin 1 g IV. My concern is that he has a significant leukocytosis, suggesting that his fever is related to the urine infection and not necessarily COVID-19 which typically is not associated with an acute leukocytosis with a leftward shift like this patient has. His lactate is within normal limits, he is hyponatremic. He was initiallygiven a 500 cc bolus of IV fluid, but given that his pressures are good and his vital signs are otherwise normal, we will continue the IV fluids at a slower rate. Given the leukocytosis and fever, supposing this is probably due to the UTI, will admit with IV antibiotics for now pending cultures. Does not technically meet criteria for sepsis and I do not think he needs to be in the ICU at this time. Lab Data Attestation: I reviewed the patient's lab results. Labs: Laboratory Results - last 24 hr 09/20/23 09/20/23 19:35 19:45 WBC 19.4 H RBC 4.35 L Hgb 12.3 L Hct 36.8 L MCV 84.6 MCH 28.3 MCHC 33.4 RDW Std Deviation 39.8 RDW Coeff of Frieda 12.9 Plt Count 366 MPV 9.7 Immature Gran % (Auto) 0.500 Neut % (Auto) 80.2 H Lymph % (Auto) 5.9 L [place] % (Auto) 12.8 H Eos % (Auto) 0.4 Baso % (Auto) 0.2 Absolute Neuts (auto) 15.6 H Absolute Lymphs (auto) 1.14 Nucleated RBC % 0 Differential Comment SCANNED Diff Path Review March foll PT 14.5 INR 1.1 APTT 32.9 Sodium 124 L Potassium 3.6 Chloride 90 L Carbon Dioxide 27.0 Anion Gap 7 BUN 12 Creatinine 0.68 L Est GFR (MDRD) Af Amer 155 Est GFR (MDRD) Non-Af 128 BUN/Creatinine Ratio 17.6 Glucose 120 H Lactic Acid 0.9 Calcium 8.3 L Total Bilirubin 0.50 AST 11 L ALT 16 Alkaline Phosphatase 62 Total Protein 7.0 Albumin 3.0 L Globulin 4.0 Albumin/Globulin Ratio 0.8 L Urine Color Yellow Urine Clarity Cloudy Urine pH 7.0 Ur Specific [place] 1.010 Urine Protein 100 H Urine Glucose (UA) Normal Urine Ketones 15 H Urine Occult Blood 50 H Urine Nitrite Positive H Urine Bilirubin Negative Urine Urobilinogen Normal Ur Leukocyte Esterase 500 H Urine RBC 10-25 SEEN Urine WBC 25-50 SEEN Ur Squamous Epith Cells 0 SEEN Urine Bacteria 2+ Urine Mucus 0 SEEN Radiography Diagnostic Testing: Clinical Impression(s) from Imaging Studies Chest X-Ray 09/20/23 19:50 IMPRESSION: 1. No acute pathology in the chest. 2. Mild gaseous distention of bowel in the upper abdomen partially visualized. No discrete evidence of subdiaphragmatic air. Electronically Signed: Conor Carrasco DO at 20:06 EST , Rhythm Strip Rhythm Strip: Sinus Rhythm Rate: 95 Ectopy: None EKG Initial EKG: Attestation: I personally reviewed and interpreted this EKG as follows: Interpretation: Sinus Rhythm and No Acute Injury Pattern Management Discussion w/another healthcare provider: Hospitalist Discharge Plan Triage Chief Complaint: Complaint ED Provider: Bennett Olivarez Dx/Rx/DC Orders Clinical Impression: Complicated UTI (urinary tract infection), COVID-19, Acute hyponatremia, Leukocytosis Prescriptions: No Action baclofen 5 MG tablet 5 mg PO TID Patient Comments: Hold for sedation/lethargy metoclopramide HCl [Reglan] 5 mg tablet 5 mg PO Q6H 30 Days Qty: 120 0RF Linzess 290 mcg capsule 290 mcg PO DAILY omeprazole 20 mg capsule,delayed release(DR/EC) 20 mg PO DAILY Motegrity 2 mg tablet 2 mg PO DAILY tamsulosin 0.4 mg Capsule 0.4 mg PO 1730 Primary Care Provider: Clifford Estes Referrals: Clifford Estes MD [Primary Care Provider] - Disposition Disposition: Acute Care Hospital [facility] What to do if you have Problems For any increased pain, shortness of breath, bleeding, nausea or vomiting, chestpain, or any unexpected problems, contact your Primary Care Provider. Call [facility] ([phone]) or report to the closest Emergency Room. Call 911 if necessary. 09/21/23 0014 <Electronically signed by Bennett Olivarez MD> Cosigner Signature (if applicable): CC: Dr. Clifford Estes MD ~ Signed [facility] Work Phone: 1(406) 320-765011-07-2023 Miscellaneous Notes* Telephone Encounter - Melodie Kim RN - 09/20/2023 3:32 PM EST THANH Tomlinson Nurse contacted and given provider's message for pt to be seen in ER. Kael states she will contact patient now. Melodie Kim, RN * Telephone Encounter - Juan Daniel Wolff PA-C - 09/20/2023 3:21 PM EST Needs to be seen in ER. We don't have hannon equipment. Needs check for UTI, dehydration with HR 120. Thanks, Brayan Wolff PA-C * Telephone Encounter - Felicita Kennedy LPN - 09/20/2023 2:09 PM EST [facility] nurse Kael reports he is with pt now & reports his heart rate is 120. Kael states pt lives with his sister who has covid, along with other family members who also hasit. Lungs are clear, T 98.8. Pt has a periodic cough, non productive. Family called Kael as they were having resistance with cath, kael reportsw a lot of sediment. Asking if she can have an order for a urine & culture? And advice regarding the elevated HR. Please advise. Felicita Kennedy LPN documented [facility]11-[facility]23 Miscellaneous Notes* Telephone Encounter - Rich Guajardo - 09/19/2023 6:26 PM EST TC to Johanna, left detailed message on secure identified voicemail. Johanna to return call to office/c any questions. Rich Guajardo * Telephone Encounter - Juan Daniel Wolff PA-C - 09/19/2023 4:49 PM EST Please make sure hannon is in bladder and has not pulled down into urethra: should move easily in and out ( just enough o make sure it moves). May use rectal suppository for spasm. The following approved medication requests have been transmitted electronically. Requested Prescriptions Signed Prescriptions Disp Refills belladonna-opium (B AND O 15-A) 16.2-30 mg suppository 14 Suppository 0 Si mg by RECTAL route two times a day as needed for pain for up to 7 days. Authorizing Provider: Juan Daniel WOLFF PA-C * Telephone Encounter - Stephanie Velez LPN - 09/19/2023 11:03 AM EST Johanna with [facility], nursing calling to get verbal orders to see pt for the following: Sister, caregiver for pt called her and pt is having bladder spasms and leaving around hannon cath. Pt had a fall last week and the whole family has COVID. Please review and advise Johanna mccormack if possible verbal order. Stephanie Velez LPN documented in this encounterSal[facility]10-24-2023 Miscellaneous Notes* Telephone Encounter - Felicita Kennedy LPN - 09/06/2023 12:00 PM EDT Patient has been identified by name and date of : Yes, Provider Yvette Gao Parent/Guardian phones for refill(s): Requested Prescriptions Pending [...] you. Felicita Kennedy LPN. documented in this encounterSalem [facility] Hospital10-23-2023 Miscellaneous Notes* Telephone Encounter - Mabel Lopez LPN - 09/05/2023 9:42 AM EDT Faxed signed order to [facility] [employer] for urological supplies. Mabel Lopez LPN documented in this encounterSalem [facility] Hospital10-06-2023 Miscellaneous Notes* Telephone Encounter - Maryan Chi LPN - 08/19/2023 10:44 AM EDT Thanks for the update. * Telephone Encounter - Liz Villarreal PA-C - 08/18/2023 2:38 PM EDT Spoke with sister. Patient doing well at this time. Reviewed using Motegrity & Linzess as his regular medications. May add Reglan sparingly. Reviewed that walking and abdominal massage are very safe ways to encourage his bowels. She hasn't yet implemented them d/t her own health issues but intends to put more effort into adding this to his regimen. * Telephone Encounter - Laura Colon - 08/16/2023 10:43 AM EDT Sister & POA (Darrion) called. Says Jian was admitted on , and D/C yesterday at [facility] for small bowel obstruction issues. Says he was doing well on the Motegrity. Since, D/C, advised to consult for next plan. Should he take the Reglan in addition to the Motegrity? Also, follow-up?? Believes he overdue for aEGD (high risk)? Please advise. documented in this encounterSalem City Hospital10-05-2023 History of Present illness Narrative* Kassy Willson Ma - 08/18/2023 11:02 AM EDT TRANSITION CARE MANAGEMENT (TCM) INITIAL CONTACT Occupational Ther Outreach Provider Action/FYI: Left message for sister, Darrion, to return call Initial contact with patient post discharge, spoke to sister. Patient identified by name and . TRANSITION CARE MANAGEMENT INITIAL OUTREACH DOCUMENTATION: Date of Outreach: 08/18/2023 Outreach Attempt 1: Contact Not Made Date of Discharge 08/15/2023 Some recent data might be hidden SUMMARY: -Pt discharged from [facility] on 08/15/23. -Admitted for: Small Bowel Obstruction Do you have a hospital follow up appointment with your PCP? Appointment on with 08/22/23 with Brayan Wolff MEDICATIONS: Many patients have questions or concerns about their medications once they are home. Were you prescribed any new medications? Yes waiting radiation / chemistry technician from [facility] on a medication Were you told to hold any medications? No Were any of your medications discontinued? No Do you have any questions about getting or taking your medications? No Your discharge instructions/After visit Summary (AVS) are important in guiding you through the recovery process. Is there anything I might help you understand? waiting for call back from [facility] Do you have all the necessary equipment and supplies at home? No, follow site specific process to secure durable medical equipment and/or supplies for the patient, handoff to RN/POWERHOUSE OILER, or LIP Medical records from recent hospitalization: [facility] documented in this encounterSalem City Hospital10-02-2023 Miscellaneous Notes* Telephone Encounter - Lily Noonan LPN - 08/15/2023 8:35 AM EDT FYI: Elizabeth rasmussen [employer]an Manufacturing Coordinator with [employer] calls to report that pt is getting discharged today from [facility]. Pt was dx with a small bowel obstruction which has been resolved. Lily Noonan LPN * Telephone Encounter - Daniela Nelson RN - 08/09/2023 8:45 AM EDT Christiano calls back to let provider know that patient is currently at [facility] ER for bowel obstruction. Catheter has been changed in ER. Christiano reports patient is going to be a transfer to [facility]. Christiano will call back for resumption of care orders once released from hospital. Daniela Nelson, RN * Telephone Encounter - Ave Mullins LPN - 08/09/2023 8:31 AM EDT Christiano from [facility] calling time for recert for monthly hannon catheter change, every month x2 starting in August, need new verbal order and for Urine and culture order. Patient sister has been irrigating catheter due to lots of sediment and clogging issues, changing catheter today while heis there, is a week early for changing. Pending orders needs diagnosis. Please advise documented in this encounterSalem City Hospital10-01-2023 Progress note Author Richard Palacio [facility] August 14, 2023 11:57am Note Date/Time August 14, 2023 7: 29am [facility] Medical Records Department [address] [place] [id number] Progress Note - Hospitalist 08/14/23 0728 MR#: [id number] Acct: [id number] Name: JIAN ALTAMIRANO Rep #:[id number] : 1965 57 From: Richard Palacio DO PCP: Dr. Clifford Estes MD Status:ADM I N Location: [address] Reason for Visit Reason for Visit: Diagnoses Elevated white blood cell count, unspecified (08/09/23) Hypo-osmolality and hyponatremia (08/09/23) Hypokalemia (08/09/23) Unspecified intestinal obstruction, unspecified as to partial versus complete obstruction (08/09/23) Subjective Subjective Sneezed out his NGT yesterday. Instead of replacing it, I kept it out. He had small BMs yesterday. Started on clear liquid diet. Objective Data Objective Data Vital Signs: Vital Signs Temp Pulse Resp BP Pulse Ox O2 Del Method 36.6 C 85 16 149/82 H 99 Room Air 08/14/23 02:00 08/14/23 02:00 08/14/23 02:00 08/14/23 02:00 08/14/23 02:00 08/14/23 02:00 Oxygen Delivery Method Room Air Weight: 56.699 kg Body Mass Index (BMI) 22.1 Intake & Output: Intake and Output for Last 24 Hours 08/12/23 08/13/23 08/14/23 23:59 23:59 23:59 Intake Total 3240.83 / 3240.83 3387.75 / 3387.75 Output Total 3390 / 3390 2550 / 2550 850 / 850 Balance -149.17 / -149.17 837.75 / 837.75 -850 / -850 Lab / Micro Data 08/14/23 06:30 08/14/23 06:30 Labs: Laboratory Results - last 24 hr 08/13/23 06:32: Sodium 138, Potassium 3.2 L, Chloride 109 H, Carbon Dioxide 18.0L, Anion Gap 11, BUN 6 L, Creatinine 0.57 L, Estim Creat Clear Calc 117.43, Est GFR (MDRD) Af Amer 190, Est GFR (MDRD) Non-Af 157, BUN/Creatinine Ratio 10.5, Glucose 81, Calcium 8.2 L, Total Bilirubin 0.70, AST 8 L, ALT 13 L, Alkaline Phosphatase 58, Total Protein 6.4, Albumin 2.7 L, Globulin 3.7, Albumin/GlobulinRatio 0.7 L 08/13/23 11:56: POC Glucose 74 08/13/23 17:43: POC Glucose 92 08/14/23 00:37: POC Glucose 96 08/14/23 05:54: POC Glucose 96 08/14/23 06:30: WBC 6.7, RBC 3.89 L, Hgb 11.3 L, Hct 34.2 L, MCV 87.9, MCH 29.0,MCHC 33.0, RDW Std Deviation 41.4, RDW Coeff of Frieda 12.8, Plt Count 378, MPV 9.5, Immature Gran % (Auto) 0.100, Neut % (Auto) 53.0, Lymph % (Auto) 28.6, [place]% (Auto) 13.7 H, Eos % (Auto) 4.0, Baso % (Auto) 0.6, Absolute Neuts (auto) 3.6,Absolute Lymphs (auto) 1.92, Nucleated RBC % 0 Physical Exam Const alert HEENT head/scalp atraumatic Cardio regular rate, regular rhythm, S1 normal heart sound and S2 normal heart sound GI normal to inspection, nondistended, normoactive bowel sounds, soft to palpation,non-tender and non-distended Extremity normal to inspection Neuro oriented x3 and CN's II-XII intact bilaterally Assessment & Plan Assessment/Plan (1) Small bowel obstruction: PLAN: Resolved versus ileus, though this is less likely given any significant failure to improve. Continue with NG tube to low intermittent suction. IV fluids, antiemetics, nonnarcotic analgesia. Metoclopramide, scheduled. Patient does get better we can manage him here by clamping NG tube and assessinghis overall response. If he does not get better or certainly if he gets worse, patient still waiting on transfer to the [facility]. NG tube sneezed out on the . Kept out. Tolerating clears. Will advance tofull's and if tolerates that then can transition to a transitional diet. And if remains stable, hopefully be able to discharge on the second. No need for transfer at this time as patient is medically stable. (2) Leukocytosis: QUALIFIERS: Leukocytosis type: unspecified Qualified Code(s): D72.829 - Elevated white blood cell count, unspecified PLAN: Resovled Suspect reactive due to small bowel obstruction or ileus Monitor (3) Hyponatremia: PLAN: Resolved May be due to hypovolemia. Continue with IV fluids and monitor (4) Hypokalemia: PLAN: Likely secondary to GI losses Replace Magnesium 2.1 PLAN: Plan Chronic conditions * BPH: Hold tamsulosin for now * Spina bifida: Hold baclofen. * Status post SOFT SHOE DANCER shunt: No active issues. Concern for infection at this time, however, who presents precludes her surgery managing this patient here. VTE prophylaxis: SCDs CODE STATUS: Addressed with the patient's sister at bedside. DNR Comfort Care arrest no intubation. Charges/Coding Visit Charges Inpatient E&M: 05942 Subs Hosp L2 08/14/23 115 <Electronically signed by Richard Palacio DO> Cosigner Signature (if applicable): CC: ~ Signed [facility] Work Phone: 1(390) 325-899709-30-2023 Progress note Author Richard Palacio [facility] August 13, 2023 11:28am Note Date/Time August 13, 2023 7:38am [facility] Medical Records Department [address] [place] [address] Progress Note - Hospitalist 08/13/23 0736 MR#: [id number] Acct: [id number] Name: JIAN ALTAMIRANO Rep #:[id number] : 1965 57 From: Richard Palacio DO PCP: Dr. Clifford Estes MD Status:ADM I N Location: [place] [address] Reason for Visit Reason for Visit: Diagnoses Elevated white blood cell count, unspecified (08/09/23) Hypo-osmolality and hyponatremia (08/09/23) Hypokalemia (08/09/23) Unspecified intestinal obstruction, unspecified as to partial versus complete obstruction (08/09/23) Subjective Subjective Did have a BM yesterday. Denies any complaints. Objective Data Objective Data Vital Signs: Vital Signs Temp Pulse Resp BP Pulse Ox O2 Del Method 36.9 C 90 16 132/76 H 93 Room Air 08/13/23 05:47 08/13/23 05:47 08/13/23 05:47 08/13/23 05:47 08/13/23 05:47 08/13/23 05:47 Oxygen Delivery Method Room Air Weight: 56.699 kg Body Mass Index (BMI) 22.1 Intake & Output: Intake and Output for Last 24 Hours 08/11/23 08/12/23 08/13/23 23:59 23:59 23:59 Intake Total 4610 / 4610 3240.83 / 3240.83 1103.33 / 1103.33 Output Total 3900 / 3900 3390 / 3390 1000 / 1000 Balance 710 / 710 -149.17 / -149.17 103.33 / 103.33 Lab / Micro Data 08/13/23 06:32 08/13/23 06:32 Labs: Laboratory Results - last 24 hr 08/12/23 05:12: Diff Path Review Reviewed 08/12/23 13:07: POC Glucose 84 08/12/23 18:26: POC Glucose 87 08/13/23 00:28: POC Glucose 82 08/13/23 05:39: POC Glucose 83 08/13/23 06:32: WBC 12.0 H, RBC 3.94 L, Hgb 11.3 L, Hct 35.9 L, MCV 91.1, MCH 28.7, MCHC 31.5 L, RDW Std Deviation 43.0, RDW Coeff of Frieda 12.9, Plt Count 394,MPV 10.1, Immature Gran % (Auto) 0.200, Neut % (Auto) 75.4 H, Lymph % (Auto) 11.4 L, [place] % (Auto) 12.1 H, Eos % (Auto) 0.6, Baso % (Auto) 0.3, Absolute Neuts (auto) 9.1 H, Absolute Lymphs (auto) 1.37, Nucleated RBC % 0 Physical Exam Const alert and no apparent distress HEENT head/scalp atraumatic and moist oral mucous membranes Resp normal respiratory effort, no retractions, no use of accessory muscles and clearto auscultation bilaterally Cardio regular rate, regular rhythm, S1 normal heart sound and S2 normal heart sound GI normal to inspection, nondistended, normoactive bowel sounds, soft to palpation and non-tender Assessment & Plan Assessment/Plan (1) Small bowel obstruction: PLAN: Versus ileus, though this is less likely given any significant failure to improve. Continue with NG tube to low intermittent suction. IV fluids, antiemetics, nonnarcotic analgesia. Metoclopramide, scheduled. Patient does get better we can manage him here by clamping NG tube and assessinghis overall response. If he does not get better or certainly if he gets worse, patient still waiting on transfer to the [facility]. Did abdomen on . We will clamp the NG tube and evaluate. (2) Leukocytosis: QUALIFIERS: Leukocytosis type: unspecified Qualified Code(s): D72.829 - Elevated white blood cell count, unspecified PLAN: Resovled Suspect reactive due to small bowel obstruction or ileus Monitor (3) Hyponatremia: PLAN: Resolved May be due to hypovolemia. Continue with IV fluids and monitor (4) Hypokalemia: PLAN: Likely secondary to GI losses Replace Magnesium 2.1 PLAN: Plan Chronic conditions * BPH: Hold tamsulosin for now * Spina bifida: Hold baclofen. * Status post SOFT SHOE DANCER shunt: No active issues. Concern for infection at this time, however, who presents precludes her surgery managing this patient here. VTE prophylaxis: SCDs CODE STATUS: Addressed with the patient's sister at bedside. DNR Comfort Care arrest no intubation. Charges/Coding Visit Charges Inpatient E&M: 62572 Subs Hosp L2 08/13/23 1128 <Electronically signed by Richard Palacio DO> Cosigner Signature (if applicable): CC: ~ Signed [facility] Work Phone: 1(217) 493-327909-29-2023 Progress note Author Richard Palacio [facility] August 12, 2023 1:53pm Note Date/Time August 12, 2023 8:37am [facility] Medical Records Department [address] [place] [address] Progress Note - Hospitalist 08/12/23 0834 MR#: [id number] Acct: [id number] Name: JIAN ALTAMIRANO Rep #:[id number] : 1965 57 From: Richard Palacio DO PCP: Dr. Clifford Estes MD Status:ADM I N Location: [place] [address] Reason for Visit Reason for Visit: Diagnoses Elevated white blood cell count, unspecified (08/09/23) Hypo-osmolality and hyponatremia (08/09/23) Hypokalemia (08/09/23) Unspecified intestinal obstruction, unspecified as to partial versus complete obstruction (08/09/23) Subjective Subjective Still no BM, nor flatus. Objective Data Objective Data Vital Signs: Vital Signs Temp Pulse Resp BP Pulse Ox O2 Del Method 36.2 C L 92 16 139/80 H 98 Room Air 08/12/23 08:17 08/12/23 08:17 08/12/23 08:17 08/12/23 08:17 08/12/23 08:17 08/12/23 08:17 Oxygen Delivery Method Room Air Weight: 56.699 kg Body Mass Index (BMI) 22.1 Intake & Output: Intake and Output for Last 24 Hours 08/10/23 08/11/23 08/12/23 23:59 23:59 23:59 Intake Total 3155.0 / 3155.0 4610 / 4610 887.5 / 887.5 Output Total 3650 / 3650 3900 / 3900 1040 / 1040 Balance -495.0 / -495.0 710 / 710 -152.5 / -152.5 Lab / Micro Data 08/12/23 05:12 08/12/23 05:12 Labs: Laboratory Results - last 24 hr 08/11/23 05:35: Magnesium 2.1 08/11/23 20:37: POC Glucose 79 08/12/23 05:12: WBC 12.8 H, RBC 3.87 L, Hgb 11.2 L, Hct 35.2 L, MCV 91.0, MCH 28.9, MCHC 31.8 L, RDW Std Deviation 42.6, RDW Coeff of Frieda 12.8, Plt Count 384,MPV 9.9, Immature Gran % (Auto) 0.500, Neut % (Auto) 73.1 H, Lymph % (Auto) 12.1L, [place] % (Auto) 13.8 H, Eos % (Auto) 0.2, Baso % (Auto) 0.3, Absolute Neuts (auto) 9.3 H, Absolute Lymphs (auto) 1.54, Nucleated RBC % 0, Differential Comment SCANNED, Diff Path Review March foll, Sodium 140, Potassium 3.2 L, Chloride 108H, Carbon Dioxide 20.0 L, Anion Gap 12, BUN 9, Creatinine 0.60 L, Estim Creat Clear Calc 111.56, Est GFR (MDRD) Af Amer 179, Est GFR (MDRD) Non-Af 148, BUN/Creatinine Ratio 15.0, Glucose 74, Calcium 8.2 L 08/12/23 05:52: POC Glucose 71 L Physical Exam Const alert and no apparent distress Resp normal respiratory effort, no retractions, no use of accessory muscles and clearto auscultation bilaterally Cardio regular rate, regular rhythm, S1 normal heart sound and S2 normal heart sound GI normal to inspection, nondistended, normoactive bowel sounds, soft to palpation,non-tender and non-distended Assessment & Plan Assessment/Plan (1) Small bowel obstruction: PLAN: Versus ileus, though this is less likely given any significant failure to improve. Continue with NG tube to low intermittent suction. IV fluids, antiemetics, nonnarcotic analgesia. Metoclopramide, scheduled. Patient does get better we can manage him here by clamping NG tube and assessinghis overall response. If he does not get better or certainly if he gets worse, patient still waiting on transfer to the [facility]. Tried suppository, no effect. Will attempt tap water enema. (2) Leukocytosis: QUALIFIERS: Leukocytosis type: unspecified Qualified Code(s): D72.829 - Elevated white blood cell count, unspecified PLAN: Resovled Suspect reactive due to small bowel obstruction or ileus Monitor (3) Hyponatremia: PLAN: Resolved May be due to hypovolemia. Continue with IV fluids and monitor (4) Hypokalemia: PLAN: Likely secondary to GI losses Replace Magnesium 2.1 PLAN: Plan Chronic conditions * BPH: Hold tamsulosin for now * Spina bifida: Hold baclofen. * Status post SOFT SHOE DANCER shunt: No active issues. Concern for infection at this time, however, who presents precludes her surgery managing this patient here. VTE prophylaxis: SCDs CODE STATUS: Addressed with the patient's sister at bedside. DNR Comfort Care arrest no intubation. Charges/Coding Visit Charges Inpatient E&M: 46697 Subs Hosp L2 08/12/23 1353 <Electronically signed by Richard Palacio DO> Cosigner Signature (if applicable): CC: ~ Signed [facility] Work Phone: 1(870) 823-213809-28-2023 Progress note Author Richard Palacio [facility] August 11, 2023 12:01pm Note Date/Time August 11, 2023 8:04am [facility] Medical Records Department [address] [place] [address] Progress Note - Hospitalist 08/11/23 0801 MR#: [id number] Acct: [id number] Name: JIAN ALTAMIRANO Rep #:[id number] : 1965 57 From: Richard Palacio DO PCP: Dr. Clifford Estes MD Status:ADM I N Location: [place] [address] Reason for Visit Reason for Visit: Diagnoses Elevated white blood cell count, unspecified (08/09/23) Hypo-osmolality and hyponatremia (08/09/23) Unspecified intestinal obstruction, unspecified as to partial versus complete obstruction (08/09/23) Subjective Subjective Denies complaints. No BM. No flatus. He says his abdomen growls more at night. Objective Data Objective Data Vital Signs: Vital Signs Temp Pulse Resp BP Pulse Ox O2 Del Method 36.8 C 88 18 115/66 95 Room Air 08/11/23 04:36 08/11/23 04:36 08/11/23 04:36 08/11/23 04:36 08/11/23 04:36 08/11/23 04:36 Oxygen Delivery Method Room Air Weight: 56.699 kg Body Mass Index (BMI) 22.1 Intake & Output: Intake and Output for Last 24 Hours 08/09/23 08/10/23 08/11/23 23:59 23:59 23:59 Intake Total 3102.5 / 3102.5 3155.0 / 3155.0 1090 / 1090 Output Total 1050 / 1050 3650 / 3650 1300 / 1300 Balance 2052.5 / 2052.5 -495.0 / -495.0 -210 / -210 Lab / Micro Data 08/11/23 05:35 08/11/23 05:35 Labs: Laboratory Results - last 24 hr 08/11/23 05:35: WBC 11.9 H, RBC 3.83 L, Hgb 11.1 L, Hct 35.2 L, MCV 91.9, MCH 29.0, MCHC 31.5 L D, RDW Std Deviation 41.8, RDW Coeff of Frieda 12.7, Plt Count 387, MPV 10.1, Immature Gran % (Auto) 0.300, Neut % (Auto) 75.9 H, Lymph % (Auto) 10.6 L, [place] % (Auto) 12.6 H, Eos % (Auto) 0.3, Baso % (Auto) 0.3, Absolute Neuts (auto) 9.1 H, Absolute Lymphs (auto) 1.26, Nucleated RBC % 0, Sodium 139, Potassium 3.2 L, Chloride 105, Carbon Dioxide 22.0, Anion Gap 12, BUN 12, Creatinine 0.58 L, Estim Creat Clear Calc 115.41, Est GFR (MDRD) Af Orjo378, Est GFR (MDRD) Non-Af 155, BUN/Creatinine Ratio 20.8 H, Glucose 69 L, Calcium 8.0 L Physical Exam Const alert and no apparent distress Cardio regular rate, regular rhythm, S1 normal heart sound and S2 normal heart sound GI normal to inspection, nondistended, normoactive bowel sounds GI Narrative: copious dark brown drainage from NGT. Neuro oriented x3 Sensorium / Orientation: awake and alert Assessment & Plan Assessment/Plan (1) Small bowel obstruction: PLAN: Versus ileus, though this is less likely given any significant failure to improve. Continue with NG tube to low intermittent suction. IV fluids, antiemetics, nonnarcotic analgesia. Metoclopramide, scheduled. Patient does get better we can manage him here by clamping NG tube and assessinghis overall response. If he does not get better or certainly if he gets worse, patient still waiting on transfer to the [facility]. (2) Leukocytosis: QUALIFIERS: Leukocytosis type: unspecified Qualified Code(s): D72.829 - Elevated white blood cell count, unspecified PLAN: Resovled Suspect reactive due to small bowel obstruction or ileus Monitor (3) Hyponatremia: PLAN: Resolved May be due to hypovolemia. Continue with IV fluids and monitor (4) Hypokalemia: PLAN: Likely secondary to GI losses Replace Magnesium 2.1 PLAN: Plan Chronic conditions * BPH: Hold tamsulosin for now * Spina bifida: Hold baclofen. * Status post SOFT SHOE DANCER shunt: No active issues. Concern for infection at this time, however, who presents precludes her surgery managing this patient here. VTE prophylaxis: SCDs CODE STATUS: Addressed with the patient's sister at bedside. DNR Comfort Care arrest no intubation. Charges/Coding Visit Charges Inpatient E&M: 76539 Subs Hosp L2 08/11/23 1201 <Electronically signed by Richard Palacio DO> Cosigner Signature (if applicable): CC: ~ Signed [facility] Work Phone: 1(686) 879-549109-28-2023 Miscellaneous Notes* Telephone Encounter - Maryan Chi LPN - 08/11/2023 11:52 AM EDT Spoke with Jian Altamirano ( sister Darrion)on August 11, 2023. Patient Update - Darrion stated and informed of patient status Admitted in [facility] since TuesdayAugust 08 with NG Tube with drainage of 500-1000 cc daily . Waiting on a Hospital bed at [facility] per patients request. Ms. Verdugo was made aware that Liz was out of the office until Aug.15 . Discussed while her brother (patient) was admitted into the hospital at [facility] he would be under the [facility] the [facility] care plan and treatment plan until discharge . Ms. Verdugo verbalized understanding. -Maryan Juarez LPN * Telephone Encounter - Laura Colon - 08/11/2023 9:15 AM EDT Sis (Darrion) called. Says Jian will be admitted at [facility], but he's waiting on a bed rightnow. States the Motegrity worked well for 3 [...] has AV Shunt that would require a NeuroMD as well. Please advise. [facility] Progress note Author Richard Palacio [facility] August 10, 2023 1:42pm Note Date/Time August 10, 2023 8:31am [facility] Medical Records Department [address] [place] [address] Progress Note - Hospitalist 08/10/23 0831 MR#: [id number] Acct: [id number] Name: JIAN ALTAMIRANO Rep #:[id number] : 1965 57 From: Richard Palacio DO PCP: Dr. Clifford Estes MD Status:ADM I N Location: MS3 [id number] Reason for Visit Reason for Visit: Diagnoses Elevated white blood cell count, unspecified (08/09/23) Hypo-osmolality and hyponatremia (08/09/23) Unspecified intestinal obstruction, unspecified as to partial versus complete obstruction (08/09/23) Subjective Subjective Still with abdominal pain. No BM nor flatus. Objective Data Objective Data Vital Signs: Vital Signs Temp Pulse Resp BP Pulse Ox O2 Del Method 37.1 C 94 18 105/73 96 Room Air 08/10/23 02:27 08/10/23 02:27 08/10/23 02:27 08/10/23 02:08/10/23 02:08/10/23 02:27 Oxygen Delivery Method Room Air Weight: 56.699 kg Body Mass Index (BMI) 22.1 Intake & Output: Intake and Output for Last 24 Hours 08/08/23 08/09/23 08/10/23 23:59 23:59 23:59 Intake Total 3102.5 / 3102.5 1047.5 / 1047.5 Output Total 1050 / 1050 1550 / 1550 Balance 2052.5 / 2052.5 -502.5 / -502.5 Lab / Micro Data 08/10/23 06:09 08/10/23 06:09 Labs: Laboratory Results - last 24 hr 08/10/23 06:09: WBC 8.3, RBC 3.85 L, Hgb 11.6 L, Hct 34.1 L, MCV 88.6, MCH 30.1,MCHC 34.0, RDW Std Deviation 41.5, RDW Coeff of Frieda 12.8, Plt Count 367, MPV 9.7, Immature Gran % (Auto) 0.200, Neut % (Auto) 65.9, Lymph % (Auto) 17.1 L, [place] % (Auto) 15.9 H, Eos % (Auto) 0.5, Baso % (Auto) 0.4, Absolute Neuts (auto)5.5, Absolute Lymphs (auto) 1.41, Nucleated RBC % 0, Sodium 137, Potassium 3.5, Chloride 105, Carbon Dioxide 27.0, Anion Gap 5, BUN 11, Creatinine 0.64 L, EstimCreat Clear Calc 104.59, Est GFR (MDRD) Af Amer 168, Est GFR (MDRD) Non-Af 138, BUN/Creatinine Ratio 17.3, Glucose 96, Calcium 7.8 L, Total Bilirubin 0.60, AST 5 L, ALT 13 L, Alkaline Phosphatase 57, Total Protein 6.0 L, Albumin 2.6 L, Globulin 3.4, Albumin/Globulin Ratio 0.8 L Physical Exam Const alert and no apparent distress Resp normal respiratory effort, no retractions, no use of accessory muscles and clearto auscultation bilaterally Cardio regular rate, regular rhythm, S1 normal heart sound and S2 normal heart sound GI GI Narrative: soft, NT, ND. copious bilious fluid from NGT. Assessment & Plan Assessment/Plan (1) Small bowel obstruction: PLAN: Versus ileus. Patient has had similar presentations. Unclear as to whichthis is at this time. Continue with NG tube to low intermittent suction. IV fluids, antiemetics, nonnarcotic analgesia. Metoclopramide, scheduled. Patient does get better we can manage him here by clamping NG tube and assessinghis overall response. If he does not get better or certainly if he gets worse, patient still waiting on transfer to the [facility]. (2) Leukocytosis: QUALIFIERS: Leukocytosis type: unspecified Qualified Code(s): D72.829 - Elevated white blood cell count, unspecified PLAN: Resovled Suspect reactive due to small bowel obstruction or ileus Monitor (3) Hyponatremia: PLAN: Resolved May be due to hypovolemia. Continue with IV fluids and monitor PLAN: Plan Chronic conditions * BPH: Hold tamsulosin for now * Spina bifida: Hold baclofen. * Status post SOFT SHOE DANCER shunt: No active issues. Concern for infection at this time, however, who presents precludes her surgery managing this patient here. VTE prophylaxis: SCDs CODE STATUS: Addressed with the patient's sister at bedside. DNR Comfort Care arrest no intubation.. Charges/Coding Visit Charges Inpatient E&M: 25214 Subs Hosp L2 08/10/23 1342 <Electronically signed by Richard Palacio DO> Cosigner Signature (if applicable): CC: ~ Signed [facility] Work Phone: 1(690) 193-269409-26-2023 History and physical note Author Richard Palacio [facility] August 09, 2023 2:50pm Note Date/Time August 09, 2023 2:46pm [facility] Medical Records Department [address] [place] [address] H&P Exam - Hospitalist 08/09/23 1436 MR#: [id number] Acct: [id number] Name: JIAN ALTAMIRANO Rep #:[id number] : 1965 57 From: Richard Palacio DO PCP: Dr. Clifford Estes MD Status:ADM I N Location[place] [id number] HPI - General General Date of Admission: 08/09/23 Date of Service: 08/09/23 Chief Complaint: abdominal pain HPI Narrative JIAN ALTAMIRANO, is a 57 M who presents with abdominal pain. Patient was having vomiting abdominal distention. Patient has had similar but this was moresevere, according to his sister at bedside. Patient presents to the emergency room and was noted to have significant distention of the stomach and proximal small bowel with distal transition, suggestive of a small bowel obstruction. AnNG tube was placed in the emergency room the patient had copious amounts of green bilious fluid suctioned. Dr. Grant, general surgery, was contacted and would not feel comfortable managing this patient given his history of SOFT SHOE DANCER shunt. Requested transfer to tertiary facility. [facility], however no readily available beds. Patient was emergency room for roughly 6 hours and the hospitalist service was contacted. Irequested them to [facility] out to [facility] but no available at this time. Patient is to be brought into the hospital with his abdominal issues which may be a small bowel obstruction or an ileus with right surgical availability. If condition worsens. Patient will remain here until he can be safely transferred to a tertiary facility for unless he gets better. [facility] Medical History Bladder diverticulum Bladder stones BPH (benign prostatic hyperplasia) Catheter-associated urinary tract infection Chronic hyponatremia Chronic indwelling Hannon catheter Chronic intestinal pseudo-obstruction Gastroparesis History of urinary retention Hydrocephalus Hypertension Hyponatremia Ileus Inguinal hernia Normal pressure hydrocephalus Seizures Home Medications baclofen 5 mg tablet 5 mg PO TID MUSCLE SPASMS 07/21/22 [History Last Taken 02/20/23] metoclopramide HCl 5 mg tablet (Reglan) 5 mg PO Q6H 30 days #120 tabs 05/16/23 [Rx Last Taken Unknown] linaclotide 290 mcg capsule (Linzess) 290 mcg PO DAILY IRRITABLE BOWELS 08/09/23[History Last Taken Unknown] omeprazole 20 mg capsule,delayed release 20 mg PO DAILY ACID REFLUX 08/09/23 [History Last Taken Unknown] prucalopride 2 mg tablet (Motegrity) 2 mg PO DAILY CHRONIC CONSTIPATION 08/09/23[History Last Taken Unknown] tamsulosin 0.4 mg capsule 0.4 mg PO 1730 PROSTATE 08/09/23 [History Last Taken Unknown] Allergy/AdvReac Type Severity Reaction Status Date / Time Iodinated Contrast Media Allergy Anaphylaxis Verified 05/09/23 03:11 [Iodinated Contrast Media - IV Dye] nitrofurantoin AdvReac Upset Verified 05/09/23 03:11 Stomach Family History Father Heart disease Kidney stones Prostate disease Brother Kidney stones Other Cancer Peptic ulcer disease Surgical History S/P release of urethral stricture S/P SOFT SHOE DANCER shunt SOFT SHOE DANCER (ventriculoperitoneal) shunt status Social History household members: family Smoking Status: Never smoker alcohol intake: never substance use type: does not use ROS ROS Narrative Feeling much better after the ET tube was placed. All review of systems were negative except as mentioned above in the history of present illness and the other review of systems. Vital Signs Vital Signs Vital Signs: 08/09/23 00:18 08/09/23 02:17 08/09/23 04:00 Temperature 36.9 C Temperature Source Temporal Pulse Rate 110 H Respiratory Rate 16 20 H 18 Blood Pressure 137/107 H Blood Pressure Mean 117 Pulse Ox 97 Oxygen Delivery Method Room Air 08/09/23 08:20 08/09/23 11:00 08/09/23 12:55 Temperature 36.3 C L Temperature Source Oral Pulse Rate 89 66 90 Respiratory Rate 16 16 16 Blood Pressure 126/82 H 138/90 H 139/102 H Blood Pressure Mean 96 106 114 Pulse Ox 98 95 95 Oxygen Delivery Method Room Air Room Air Room Air Weight Weight: 56.699 kg Body Mass Index (BMI) 22.1 Physical Exam Const alert and no apparent distress Constitutional Narrative: NG tube in place HEENT normocephalic and head/scalp atraumatic Resp normal respiratory effort, no retractions, no use of accessory muscles and clearto auscultation bilaterally Cardio regular rate, regular rhythm, S1 normal heart sound and S2 normal heart sound GI normal to inspection, nondistended, normoactive bowel sounds, soft to palpation,non-tender and non-distended Extremity normal to inspection Neuro Sensorium / Orientation: awake and alert Results Lab / Micro Data 08/09/23 00:59 08/09/23 00:59 Labs: Laboratory Results - last 24 hr 08/09/23 00:59: WBC 15.4 H, RBC 5.28, Hgb 15.8, Hct 45.5, MCV 86.2, MCH 29.9, MCHC 34.7, RDW Std Deviation 39.1, RDW Coeff of Frieda 12.5, Plt Count 522 H, MPV 9.5, Immature Gran % (Auto) 0.400, Neut % (Auto) 84.5 H, Lymph % (Auto) 7.5 L, [place] % (Auto) 7.2, Eos % (Auto) 0.1, Baso % (Auto) 0.3, Absolute Neuts (auto) 13.0 H, Absolute Lymphs (auto) 1.15, Nucleated RBC % 0, Sodium 127 L, Potassium 4.1, Chloride 92 L, Carbon Dioxide 27.0, Anion Gap 8, BUN 15, Creatinine 0.89, Estim Creat Clear Calc 75.21, Est GFR (MDRD) Af Amer 114, Est GFR (MDRD) Non-Af 94, BUN/Creatinine Ratio 16.9, Glucose 168 H, Lactic Acid 1.0, Calcium 9.2, Total Bilirubin 0.50, Direct Bilirubin 0.16, AST 15, ALT 19, Alkaline Phosphatase 84, Total Protein 8.3 H, Albumin 3.6, Globulin 4.7 H, Lipase 22 Radiology Impression Abdomen/Pelvis CT 08/09/23 00:36 IMPRESSION: Multiple chronic changes. Significant distention of the stomach and proximal small bowel with distal transition, suggestive of a small bowel obstruction. This appearance is similar to prior imaging. Bladder with prominent diverticula. Multiple bladder calcifications. Left-sided diverticulum enters into the left inguinal hernia. Left-sided renal calculus. No hydronephrosis. Chronic left hip dislocation. Electronically Signed: Roscoe Sinha MD at 1:47 EDT , KUB X-Ray 08/09/23 01:52 IMPRESSION: Enteric tube terminating in the stomach. Dilated bowel in the upper abdomen. Electronically Signed: Roscoe Sinha MD at 2:42 EDT , Assessment & Plan Assessment/Plan (1) Small bowel obstruction: PLAN: Versus ileus. Patient has had similar presentations. Unclear as to whichthis is at this time. Continue with NG tube to low intermittent suction. IV fluids, antiemetics, nonnarcotic analgesia. Metoclopramide, scheduled. Patient does get better we can manage him here by clamping NG tube and assessinghis overall response. If he does not get better or certainly if he gets worse, patient still waiting on transfer to the [facility]. (2) Leukocytosis: QUALIFIERS: Leukocytosis type: unspecified Qualified Code(s): D72.829 - Elevated white blood cell count, unspecified PLAN: Suspect reactive due to small bowel obstruction or ileus Monitor (3) Hyponatremia: PLAN: May be due to hypovolemia. Continue with IV fluids and monitor PLAN: Plan Chronic conditions * BPH: Hold tamsulosin for now * Spina bifida: Hold baclofen. * Status post SOFT SHOE DANCER shunt: No active issues. Concern for infection at this time, however, who presents precludes her surgery managing this patient here. VTE prophylaxis: SCDs CODE STATUS: Addressed with the patient's sister at bedside. DNR Comfort Care arrest no intubation.. Charges/Coding Visit Charges Inpatient E&M: 06043 Init Hosp L3 08/09/23 1450 <Electronically signed by Richard Palacio DO> Cosigner Signature (if applicable): CC: Dr. Richard Palacio DO; Dr. Clifford Estes MD~ Signed [facility] Work Phone: 1(290) 635-600009-26-2023 Discharge summary Author Abdirahman Jones [facility] August 09, 2023 3:45am Note Date/Time August 09, 2023 3:46am [facility] Medical Records Department [address] [place] [address] Emergency Department Summary 08/09/23 MR#: [id number] Acct: [id number] Name: JIAN ALTAMIRANO Rep #:[id number] : 1965 57 From: Abdirahman Jones DO PCP: Dr. Clifford Estes MD Status:REG E R Location: ED HPI History of Present Illness Chief Complaint: Nausea/Vomiting Informant: patient and family Narrative Narrative: Patient is a 57-year-old male with past medical history of hydrocephalus having a SOFT SHOE DANCER shunt placed shortly after . He has paraplegia secondary to this. Healso has a history of recurrent small bowel obstructions and a chronic indwelling Hannon cath. Patient and his sister who he stays with states that he was doing well but this evening approximately 2 hours prior to arrival began with increasing upper abdominal pain and bouts of vomiting. They deny any feverbut with his history of SBO and now sudden onset of vomiting there is concern for this and he was brought in for evaluation [facility] Medical History Bladder diverticulum Bladder stones BPH (benign prostatic hyperplasia) Catheter-associated urinary tract infection Chronic hyponatremia Chronic indwelling Hannon catheter Chronic intestinal pseudo-obstruction Gastroparesis History of urinary retention Hydrocephalus Hypertension Hyponatremia Ileus Inguinal hernia Normal pressure hydrocephalus Seizures Home Medications linaclotide 72 mcg capsule (Linzess) 290 mcg PO DAILY constipation 07/31/21 [History Last Taken 02/20/23] baclofen 5 mg tablet 5 mg PO TID spasms 07/21/22 [History Last Taken 02/20/23] erythromycin ethylsuccinate 200 mg/5 mL oral powder for suspension (EryPed 200) 100 mg (2.5 mL) PO TIDAC 30 days #225 mL 05/16/23 [Rx Last Taken Unknown] metoclopramide HCl 5 mg tablet (Reglan) 5 mg PO Q6H 30 days #120 tabs 05/16/23 [Rx Last Taken Unknown] tamsulosin 0.4 mg capsule 0.4 mg PO DAILY@1730 30 days #30 caps 05/16/23 [Rx Last Taken Unknown] Allergy/AdvReac Type Severity Reaction Status Date / Time Iodinated Contrast Media Allergy Anaphylaxis Verified 05/09/23 03:11 [Iodinated Contrast Media - IV Dye] nitrofurantoin AdvReac Upset Verified 05/09/23 03:11 Stomach Family History Father Heart disease Kidney stones Prostate disease Brother Kidney stones Other Cancer Peptic ulcer disease Surgical History S/P release of urethral stricture S/P SOFT SHOE DANCER shunt SOFT SHOE DANCER (ventriculoperitoneal) shunt status Social History household members: family Smoking Status: Never smoker alcohol intake: never substance use type: does not use ROS ROS ED Constitutional Constitutional ED: Denies chills or fever(s) ENT ENT ED: Denies sore throat Cardiovascular Cardiovascular: Denies chest pain Respiratory/Chest Respiratory/Chest: Denies cough or dyspnea Gastrointestinal Gastrointestinal: Reports abdominal pain, nausea and vomiting; Denies diarrhea Integumentary Denies rash Neurologic Neurologic: Denies headache(s) Hematologic/Lymphatic Hematologic/Lymphatic: Denies easy bleeding or easy bruising EXAM Physical Exam Const Vital Signs: 08/09/23 00:18 08/09/23 02:17 Temperature 98.5 F Temperature Source Temporal Pulse Rate 110 H Respiratory Rate 16 20 H Blood Pressure 137/107 H Blood Pressure Mean 117 Pulse Ox 97 Oxygen Delivery Method Room Air Positive well nourished and well developed General Appearance ED: well developed HEENT Reports moist mucous membranes HEENT Narrative: No airway edema or compromise No secondary changes of the posterior pharynx to suggest infection Eyes PERRL and EOMs intact bilaterally General Eye ED: Negative for scleral icterus Neck supple Neck Narrative: No nuchal rigidity or meningeal signs noted Resp normal respiratory effort and clear to auscultation bilaterally Resp Narrative: Breath sounds are diminished throughout but overall clear to auscultation without nasal flaring retractions tachypnea or accessory muscle use Cardio regular rhythm Rate: tachycardic and other Other Details: Slightly tachycardic heart rate with regular rhythm. Radial and carotid pulses are equal and symmetric GI GI Narrative: Abdomen is distended with hypoactive bowel sounds. There is pain on palpation in the upper abdomen and there is increased tympany at the site. Auscultation: hypoactive bowel sounds Narrative: Patient has a chronic indwelling Hannon catheter Extremity Extremity Narrative: Patient has chronic changes to his arms and legs secondary to his history of hydrocephalus Neuro oriented x3 and CN's II-XII intact bilaterally Sensorium / Orientation: alert Psych mental status grossly normal Skin no rashes or lesions noted General Skin Exam: Negative for jaundice MDM MDM MDM Narrative Medical decision making narrative: Patient presented to the ER hypertensive and slightly tachycardic but afebrile. He has a history of recurrent small bowel obstructions and his exam with distention and hypoactive bowel sounds and increased tympany does correlate withthis. Differential diagnosis is for SBO versus ileus versus gastroenteritis. ACT scan without contrast was obtained as patient has a allergy to contrast dye. This confirmed dilated stomach and small bowel obstruction with transition point. Therefore a NG tube was placed to decompress the bowel. His white countis elevated at 15.4 which could be secondary to developing infection or stress response from the SBO as he does have history of SOFT SHOE DANCER shunt antibiotics were started. The patient does have hyponatremia at 127 which he has been at before but is below his most recent values. Case was discussed with general surgery on-call/Dr. Centeno who agrees with NG tube placement but states because of the SOFT SHOE DANCER shunt if he did require surgery we cannot perform here and therefore recommends transfer. Family request [facility] and therefore they were contacted and the case was discussed with general surgeon Dr. Brice. He agrees except the patient at this time. Patient and sister were informed of the acceptance and at this time patient remains hemodynamically stable while awaiting transfer to [facility] History & Record Review Discussion w/independent historian: Patient and Family Lab Data Attestation: I reviewed the patient's lab results. Labs: Laboratory Results - last 24 hr 08/09/23 00:59 WBC 15.4 H RBC 5.28 Hgb 15.8 Hct 45.5 MCV 86.2 MCH 29.9 MCHC 34.7 RDW Std Deviation 39.1 RDW Coeff of Frieda 12.5 Plt Count 522 H MPV 9.5 Immature Gran % (Auto) 0.400 Neut % (Auto) 84.5 H Lymph % (Auto) 7.5 L [place] % (Auto) 7.2 Eos % (Auto) 0.1 Baso % (Auto) 0.3 Absolute Neuts (auto) 13.0 H Absolute Lymphs (auto) 1.15 Nucleated RBC % 0 Sodium 127 L Potassium 4.1 Chloride 92 L Carbon Dioxide 27.0 Anion Gap 8 BUN 15 Creatinine 0.89 Estim Creat Clear Calc 75.21 Est GFR (MDRD) Af Amer 114 Est GFR (MDRD) Non-Af 94 BUN/Creatinine Ratio 16.9 Glucose 168 H Lactic Acid 1.0 Calcium 9.2 Total Bilirubin 0.50 Direct Bilirubin 0.16 AST 15 ALT 19 Alkaline Phosphatase 84 Total Protein 8.3 H Albumin 3.6 Globulin 4.7 H Lipase 22 Radiography Diagnostic Testing: Clinical Impression(s) from Imaging Studies Abdomen/Pelvis CT 08/09/23 00:36 IMPRESSION: Multiple chronic changes. Significant distention of the stomach and proximal small bowel with distal transition, suggestive of a small bowel obstruction. This appearance is similar to prior imaging. Bladder with prominent diverticula. Multiple bladder calcifications. Left-sided diverticulum enters into the left inguinal hernia. Left-sided renal calculus. No hydronephrosis. Chronic left hip dislocation. Electronically Signed: Roscoe Sinha MD at 1:47 EDT , KUB X-Ray 08/09/23 01:52 IMPRESSION: Enteric tube terminating in the stomach. Dilated bowel in the upper abdomen. Electronically Signed: Roscoe Sinha MD at 2:42 EDT , KUB is interpreted by the emergency medicine physician reveals the nasogastric tube terminating within the stomach and persistent dilated loops of bowel consistent with SBO Management Discussion w/another healthcare provider: Collection Manager and Other Discharge Plan Triage Chief Complaint: Nausea/Vomiting ED Provider: Abdirahman Jones Dx/Rx/DC Orders Clinical Impression: Small bowel obstruction, Chronic indwelling Hannon catheter, Hyponatremia, Hydrocephalus Prescriptions: No Action Linzess 72 mcg capsule 290 mcg PO DAILY Patient Comments: TAKE 1 CAP BY MOUTH ONCE DAILY ON EMPTY STOMACH SWALLOW WHOLE DO NOT CHEW/CRUSH baclofen 5 MG tablet 5 mg PO TID Rx Instructions: Hold for sedation/lethargy tamsulosin 0.4 mg Capsule 0.4 mg PO DAILY@1730 30 Days Qty: 30 0RF erythromycin ethylsuccinate [EryPed 200] 200 mg/5 mL Suspension For Reconstitution 100 mg PO TIDAC 30 Days Qty: 225 0RF metoclopramide HCl [Reglan] 5 mg tablet 5 mg PO Q6H 30 Days Qty: 120 0RF Primary Care Provider: Clifford Estes Referrals: Clifford Estes MD [Primary Care Provider] - Disposition Disposition: Acute Care Hospital Discharge Location: [facility] What to do if you have Problems For any increased pain, shortness of breath, bleeding, nausea or vomiting, chestpain, or any unexpected problems, contact your Primary Care Provider. Call [facility] ([phone]) or report to the closest Emergency Room. Call 911 if necessary. 08/09/23 0345 <Electronically signed by Abdirahman Jones DO> Cosigner Signature (if applicable): CC: Dr. Clifford Estes MD ~ Signed [facility] Work Phone: 1(340) 476-706009-22-2023 Miscellaneous Notes* Telephone Encounter - Ericka Rubin - 08/05/2023 10:09 AM EDT Talked to patients sister and she understands he needs to drink less pain water and moire electrolytes Ericka Rubin . * Telephone Encounter - Clifford Estes MD - 08/05/2023 8:03 AM EDT Sodium is low. Are they watching his fluid intake. Again, limit plain water and use electrolyte drinks etc for now. Recheck bmp in a few weeks. documented in [facility] encounter[facility]09-20-[facility] History of Present illness Narrative* Clifford Estes MD - 08/03/2023 3:20 PM EDT Patient presents with: 6 Month Exam HPI: Patient presents today for office visit for for follow up. Is doing better. The combination of the linzess and motegrity has helped. Bowels are moving better. Appetite is stable. They would like his urine checked. Has indwelling hannon. No fever or chills. No behavioral changes. [...] (HCC) Inguinal hernia left - imaging at [facility] Sleep apnea Spina bifida (HCC) Urinary retention PAST SURGICAL HISTORY Procedure Laterality Date CRTJ SHUNT [id number] TERMINUS EGD W/O BRSH SPEC VARICIES INJ [...] patient. Advised them to call if any sideeffects or questions. Keep follow up - SPIROMETRY [...] 238.71, ICD10: D75.839 - CBC + DIFF Clifford Estes RTO in six weeks and prn. documented in this encounterSalem City Hospital08-30-2023 Miscellaneous Notes* Telephone Encounter - Kaylee Salguero LPN - 07/13/2023 11:56 AM EDT Signed and faxed back. * Telephone Encounter - Wilfredo Monet - 07/12/2023 11:31 AM EDT Placed on Tommy's desk for review and completion. Wilfredo Monet * Telephone Encounter - Rich Guajardo LPN - 07/11/2023 6:51 PM EDT Type of form: Home Health Certification and POC Form received via fax When form is completed, Fax form to [phone] Form has been forwarded to Physician Mailbox: Dr. Tommy Guajardo LPN documented in this encounterSalem City Hospital07-31-2023 History of Present illness Narrative* Liz Villarreal PA-C - 06/13/2023 9:28 PM EDT DEPARTMENT OF GASTROENTEROLOGY GI MOTILITY follow-up (Add-on patient from Dr. Nazario.) Hx by patient and his sister. REASON FOR VISIT Jian Altamirano is a 57 year old year old male who is an established patient with constipation. My final recommendations will be communicated back to the requesting physician by the way of the shared medical record, fax, or via US Mail. HISTORY OF PRESENT ILLNESS Jian Altamirano is a 57 year old year old male who presents today for an evaluation of chronic constipation & ileus. Pt. & his sister have been positivly impressed w/ their one month sofar of adding Motegrity 2mg to his bowel [...] (HCC) Inguinal hernia left - imaging at [facility] Sleep apnea Spina bifida (HCC) Urinary retention PAST SURGICAL HISTORY Procedure Laterality Date CRTJ SHUNT [id number] TERMINUS EGD W/O [facility] SPEC VARICIES INJ 08/06/2021 PAST [...] (97 F) (Temporal) Ht 160 cm (5' 3") Wt 56.2 kg (124 lb) SpO2 98% [...] male presenting with spina bifida, hydrocephalus with VPshunt & is wheelchair-bound who has chronic constipation [...] which included preparing to see the patient, [id number] patient care, completing clinical documentation, obtaining and/or reviewing separately obtained history, performing a medically appropriate examination, counseling and educating the patient/family/caregiver, ordering medications, tests, or procedures, communicating results tothe patient/family/caregiver, and care coordination (not separately reported). Liz Villarreal PA-C Neurogastroenterology Section Department of Gastroenterology June 13, 2023 documented in this encounterSalem City Hospital07-31-2023 Miscellaneous Notes* Telephone Encounter - Clifford Estes MD - 06/13/2023 1:51 PM EDT Ok. * Telephone Encounter - Mercy Noonan RN - 06/13/2023 1:21 PM EDT Juan from [facility] calls and states that he did re-certification of patient today. Juan states that senior living will visit patient 1 time a month in June and 2 times a month in July. Patientgets catheter changes once every month, and patient will need to be re-certified again at end of July. Please review and advise, Mercy Noonan RN documented in this encounterSalem City Hospital07-27-2023 Miscellaneous Notes* Telephone Encounter - Mabel Lopez LPN - 06/09/2023 4:19 PM EDT Faxed signed orders by Azam Virgen PA-C for urological supplies, bedside [facility] bad[facility] Mabel Lopez LPN documented in this encounterSalem City Hospital07-17-2023 Miscellaneous Notes* Telephone Encounter - Wilfredo Monet - 05/30/2023 10:15 AM EDT Spoke with Darrion, patients sister who states she still has been unable to get out to get to store. She says she's using what she has at home which is tomato juice and pretzels while also reducing his water intake. She was advised to make sure she get his labs repeated in two weeks and she verbalized understanding. Wilfredo Monet * Telephone Encounter - Clifford Estes MD - 05/30/2023 9:05 AM EDT She needs to find a way to get some this week. His sodium should not be this low. Recheck bmp in two weeks. * Telephone Encounter - Ave Mullins LPN - 05/28/2023 9:21 AM EDT Patient sister Darrion returned call and went over results, notes from Dr Estes with understanding. Sister said she was not able to get out to the store to get gatorade. she is only caregiver taking care of brother. * Telephone Encounter - Wilfredo Monet - 05/27/2023 3:48 PM EDT Message left for return call from sisterDarrion. Wilfredo Monet * Telephone Encounter - Clifford Estes MD - 05/27/2023 3:26 PM EDT Sodium is still low. Did they make changes that we discussed at last ov. documented in this encounterSalem City Hospital07-10-2023 Miscellaneous Notes* Telephone Encounter - Lesli Rutherford RPh - 05/23/2023 7:52 PM EDT PHARMACY EMERGENCY DEPARTMENT CULTURE CALLBACK Patient Name: Jian Altamirano Date of Callback: 05/23/2023 Pharmacist contacted sister [...] Prior to Admission medications as of 05/20/23 1540 Medication Sig Last Dose Taking sulfamethoxazole-trimethoprim (BACTRIM DS) 800-160 mg per tablet Take 1 tablet by mouth twice dailyfor 7 days. linaCLOtide (LINZESS) 290 mcg capsule Take 1 capsule by mouth DAILY (6 AM). MOTEGRITY 2 mg tab tablet TAKE 1 TABLET BY MOUTH EVERY DAY baclofen (LIORESAL) 5 mg tablet Take 1 tablet by mouth three times daily. bisacodyl (DULCOLAX) 10 mg supp Bisacodyl Active 10 MG RC NEEDED 0 January 24, 2022 10:15am OTC Patient's Preferred Pharmacy: e- [facility]/pharmacy #[id number] [place] [address] [phone] [facility] - [phone] [facility] [phone] Please page/call with any issues or questions. Electronic signature: Lesli Rutherford RPh May 23, 2023 7:55 PM Pager/Extension: [phone] documented in this encounterSalem City Hospital07-10-2023 Miscellaneous Notes* Telephone Encounter - Kassy Willson Ma - 05/23/2023 5:25 PM EDT Sister made aware * Telephone Encounter - Clifford Estes MD - 05/23/2023 4:54 PM EDT Urine culture from ER did come back positive. It is somewhat resistant. Add bactrim. Rx sent documented in this encounterSalem City Hospital07-07-2023 Miscellaneous Notes* Telephone Encounter - Ekaterina Garrett LPN - 05/20/2023 8:58 AM EDT Patient's sister notified of same. * Telephone Encounter - Wilfredo Monet - 05/20/2023 8:44 AM EDT Placed call to patients sister Darrion. No answer. Left VM for return call. Wilfredo Monet * Telephone Encounter - Clifford Estes MD - 05/20/2023 8:08 AM EDT Potassium is normal. His sodium however is very low again. Make sure not drinking plain water. Supplement with things like gatorade etc. Recheck bmp next week documented in this encounterSalem City Hospital07-06-2023 History of Present illness Narrative* Clifford Estes MD - 05/19/2023 3:30 PM EDT Patient presents with: Hospital F/U HPI: Patient presents today for office visit for hospital follow up. Admitted into [facility] on 05/09/23 Discharged on 05/16/23 Due to [...] told us yesterday she prefers to use "natural means" Explained there is no natural remedy for gastroparesis and that we need to probably used medications. They do have an appt tomorrow with gi. His potassium was low probably due to his prolonged ng. They have motegrity but has not started that yet. Reiterated that we need to do something. She willdiscuss Using rhubarb pie, sweet potato, relaxation, and exercise. See hospital discharge summary\\ from 04/05. DIAGNOSIS: Principal Problem: Small bowel obstruction (HCC) POA: Yes Resolved Problems: * No resolved hospital problems. * OPERATIONS DURING HOSPITALIZATION: None PROCEDURES DURING HOSPITALIZATION: IV Access, EKG, KUB, SBFT Study HOSPITAL COURSE: Mr. Jian Altamirano is a 57 year old male with spina bifida, hydrocephalus s/p SOFT SHOE DANCER shunt placement (at 19 yo in ), neurogenic bladder s/p chronic hannon placement (follows with Dr. Henriquez at [facility]), who presents on 04/03/2023 as transfer from [facility] for recurrent small bowel obstruction. Imaging [...] (HCC) Inguinal hernia left - imaging at [facility] Sleep apnea Spina bifida (HCC) Urinary retention PAST SURGICAL HISTORY Procedure Laterality Date CRTJ SHUNT [id number] TERMINUS EGD W/O BRSH SPEC VARICIES INJ [...] 108/64 Pulse 94 Ht 160 cm (5' 3") Wt 56.2 kg (124 lb) SpO2 96% [...] non-tender. Bowel sounds normal. No masses, organomegaly Hannon draining well. ASSESSMENT/PLAN: 1. Acute pseudo-obstruction of [...] ICD10: E87.6 - bmp. Will follow up. Clifford Estes MD documented in this encounterSalem City Hospital07-05-2023 Miscellaneous Notes* Telephone Encounter - Julita Crowley RN - 05/18/2023 3:28 PM EDT Called sister Lesli notified and given Dr. Estes's instructions. * Telephone Encounter - Clifford Estes MD - 05/18/2023 3:12 PM EDT Given the amount of hospitalizations he has had. Relying on natural medicines is a very, very bad idea and may be dangerous. Let her know I highly discourage that. * Telephone Encounter - Kyleigh Hernandez LPN - 05/18/2023 2:50 PM EDT Spoke with sister, Lesli, states patient had a large bowel movement today, states they would rather rely on natural foods than take medication. Is scheduled to be at appointment tomorrow. Will try to get blood drawn prior to, but may be after appointment tomorrow. * Telephone Encounter - Clifford Estes MD - 05/18/2023 11:38 AM EDT Let them know I recommend they get these meds unless they like for him to go to the hospital again.Needs labs done. * Telephone Encounter - Mercy Noonan RN - 05/18/2023 10:16 AM EDT Shruthi from [facility] calls to report that senior living had gone out to see patient on 05/16 to resume HH after patient was discharged from hospital. Patient is supposed to be getting labs drawn for renal function. Patient had family is not wanting home health to come and do this. Patient and family is only wanting senior living to come out to only change the hannon catheter. This needs to be changed again on 05/30 Patient was prescribed erythromycin ethylsuccinate 200 mg/5ml suspension which patient is supposed to be taking 2.5 mL TID and metoclopramide 5 mg tablet which patient is supposed to be taking every 6 hours. Patient and family went to pharmacy and did not citrus picker both medications due to cost. Patient has hospital follow up appointment with Dr. Estes on 05/19/2023 which patient and family aresupposed to discuss the above with provider. Mercy Noonan RN documented in this encounterSalem City Hospital07-05-2023 Miscellaneous Notes* Telephone Encounter - Felicita Kennedy LPN - 05/18/2023 10:39 AM EDT Yvette from [facility] reports pt was hospitalized 05/09 - 05/16/2023 & has a FU appt 05/19/23. Pt's sister is asking for a list of high potassium foods when she brings pt in for his appt. Felicita Kennedy LPN documented in this encounterSalem City Hospital07-03-2023 Discharge summary Author Ace Moncada [facility] May 16, 2023 10:56am Note Date/Time May 16, 2023 10:49 am [facility] Medical Records Department [address] [place] [address] Instructions for Home/Discharge Instructions 05/16/23 1048 MR#: [id number] Acct: [id number] Name: JIAN ALTAMIRANO Rep #:[id number] : 1965 57 From: Ace zelaya MD PCP: Dr. Clifford Estes MD Status:ADM I N Discharge Instructions Diet Discharge Diet: No restrictions Activity Discharge Activity: Return to Normal Activity Dressing / Incision Call your doctor if you observe: Fever of 101 or Higher, Shortness of breath, Dizziness, Fainting spells, Swelling in the ankles, Chest pain and Increased palpitations (irregular heartbeat) Follow Up Care Test Results: Test results from this visit will be discussed in further detail at your follow- up appointment, if applicable. Discharge Plan Admission Admit Date/Time: 05/09/23 09:06 Attending Provider: Ace Moncada Primary Care Provider: Clifford Estes Consulting Providers: Richard Palacio Instructions Additional Instructions / Restrictions: Have lab work drawn by the home health nurse in 3 to 5 days to monitor your renal function and electrolytes Discharge Orders/Prescriptions Prescriptions: New metoclopramide HCl 5 mg/mL Solution 5 mg IV Q6 30 Days Qty: 120 0RF tamsulosin 0.4 mg Capsule 0.4 mg PO DAILY@1730 30 Days Qty: 30 0RF erythromycin ethylsuccinate [EryPed 200] 200 mg/5 mL Suspension For Reconstitution 100 mg PO TIDAC 30 Days Qty: 225 0RF Continued Linzess 72 mcg capsule 290 mcg PO DAILY Patient Comments: TAKE 1 CAP BY MOUTH ONCE DAILY ON EMPTY STOMACH SWALLOW WHOLE DO NOT CHEW/CRUSH baclofen 5 MG tablet 5 mg PO TID Rx Instructions: Hold for sedation/lethargy Referrals / Follow Up: Kaden Haynes DO [Med Staff - Active Staff] - Within 3 Months Clifford Estes MD [Primary Care Provider] - Within 1 Week Disposition Disposition (needs filled in before D/C Order can be placed): Home Health Service 05/16/23 1056<Electronically signed by Ace Moncada MD>Ace Moncada MD CC: Dr. Richard Palacio DO; Dr. Clifford Estes MD ~ Signed [facility] Work Phone: 1(977) 164-468007-03-2023 Consult note Author Kaden Haynes [facility] May 16, 2023 7:21am Note Date/Time May 16, 2023 7:09a m [facility] Medical Records Department [address] [place], [place] [address]món[place] [address] Consultation - GI 05/16/23 0708 MR#: [id number] Acct: [id number] Name: JIAN ALTAMIRANO Rep #:[id number] : 1965 57 From: Kaden Haynes DO PCP: Dr. Clifford Estes MD Status:ADM I N [facility]: [facility] [id number] HPI Consult Data Date of Consult: 05/15/23 HPI Narrative Reason for Consultation: Ileus HPI Narrative: JIAN ALTAMIRANO, is a 57 M who presents with worsening abdominal distention and possible bowel obstruction. He has a past medical history of chronic hyponatremia, hypertension, seizure disorder, gastroparesis and neurogenic bladder, normal pressure hydrocephalus with SOFT SHOE DANCER shunt and functional paraplegia. He presented to the [facility] ED owith history of 12-24 hours of progressively worsening abdominal distention, abdominal discomfort rated moderate 4-6 out of 10 in severity, decreased oral intake, decreased urine output and lack of flatuswith last bowel movement greater than 24 hours prior with family concern for possible recurrent bowel obstruction . He has presented to hospital for multiple admissions for partial SBO/ileus these episodes have all resolved with NG tube decompression/IV hydration/bowel rest. Patient has had no previous intraabdominal surgeries except has a SOFT SHOE DANCER shunt. On this current admission he had a small bowel follow-through that did not show any signs of obstruction. Patient did have multiple bowel movements today. Andafter talking to nursing they tell me that his sister comes every morning to give him enemas and decompress his bowels. Patient said that he did have liquids this morning and he had a regular lunch. He says that his abdomen feelsa lot better. He is gotten multiple treatments including Reglan, erythromycin and PPI therapy on this admission. [facility] Medical History (Updated 05/16/23 @ 07:[address] Alfonso Friend, ) Bladder diverticulum Bladder stones BPH (benign prostatic hyperplasia) Catheter-associated urinary tract infection Chronic indwelling Hannon catheter Gastroparesis History of urinary retention Hydrocephalus Hypertension Hyponatremia Ileus Inguinal hernia Normal pressure hydrocephalus Seizures Home Medications linaclotide 72 mcg capsule (Linzess) 290 mcg PO DAILY constipation 07/31/21 [History Last Taken 02/20/23] baclofen 5 mg tablet 5 mg PO TID spasms 07/21/22 [History Last Taken 02/20/23] Allergy/AdvReac Type Severity Reaction Status Date / Time Iodinated Contrast Media Allergy Anaphylaxis Verified 05/09/23 03:11 [Iodinated Contrast Media - IV Dye] nitrofurantoin AdvReac Upset Verified 05/09/23 03:11 Stomach Family History Father Heart disease Kidney stones Prostate disease Brother Kidney stones Other Cancer Peptic ulcer disease Surgical History S/P release of urethral stricture S/P SOFT SHOE DANCER shunt SOFT SHOE DANCER (ventriculoperitoneal) shunt status Social History household members: family Smoking Status: Never smoker alcohol intake: never substance use type: does not use ROS ROS Narrative All review of systems were negative except as mentioned above in the history of present illness and the other review of systems. Physical Exam Const alert HEENT head/scalp atraumatic and moist oral mucous membranes Resp normal respiratory effort, no retractions, no use of accessory muscles and clearto auscultation bilaterally Cardio regular rate, regular rhythm, S1 normal heart sound and S2 normal heart sound GI GI Narrative: Nondistended and nontender Lab / Micro Data 05/14/23 05:15 05/16/23 05:55 Labs: Laboratory Results - last 24 hr 05/15/23 06:16: Sodium 133 L, Potassium 3.1 L, Chloride 101, Carbon Dioxide 24.0, Anion Gap 8, BUN 2 L, Creatinine 0.44 L, Estim Creat Clear Calc 150.91, Est GFR (MDRD) Af Amer 257, Est GFR (MDRD) Non-Af 212, BUN/Creatinine Ratio 4.5 L, Glucose 99, Calcium 8.0 L 05/16/23 05:55: Sodium 135 L, Potassium 3.8, Chloride 104, Carbon Dioxide 26.0, Anion Gap 5, BUN 1 L, Creatinine 0.44 L, Estim Creat Clear Calc 150.91, Est GFR (MDRD) Af Amer 258, Est GFR (MDRD) Non-Af 213, BUN/Creatinine Ratio 2.3 L, Glucose 104, Calcium 8.0 L Assessment & Plan Assessment/Plan (1) Chronic intestinal pseudo-obstruction: PLAN: Typically for an acute exacerbation we would stop all medications that canexacerbate his chronic intestinal pseudoobstruction including opioids, calcium channel blockers and all medicines the anticholinergic side effects. Also we give methylnaltrexone at a 0.15 mg/kg dose, along with erythromycin 3 mg/kg every 8 hours for 5 to 7 days and neostigmine 0.5 mg intramuscular. If you give neostigmine IV did not have to be under cardiac monitoring. I would also include metoclopramide 10 mg every 6 hours. Chronically he could be on prucalopride which is a 5-HT 4 receptor agonist thataccelerates transit in the stomach, small bowel and colon with pyridostigmine which is a oral form of neostigmine that may be also beneficial. At this time he seems to be doing very well. Therefore you can continue current therapy. Charges/Coding Visit Charges Inpatient E&M: 32444 Init Hosp L3 05/16/23 0721 <Electronically signed by Kaden Haynes DO> Cosigner Signature (if applicable): CC: Dr. Richard Palacio DO; Dr. Clifford Estes MD~ Signed [facility] Work Phone: 1(822) 619-385507-02-2023 Progress note Author [facility] May 15, 2023 12:29pm Note Date/Time May 15, 2023 7:10a m [facility] Medical Records Department [address] [place] [id number] Progress Note - Hospitalist 05/15/23 0708 MR#: [id number] Acct: [id number] Name: JIAN ALTAMIRANO Rep #:[id number] : 1965 57 From: Richard Palacio DO PCP: Dr. Clifford Estes MD Status:ADM I N Location: [place] [address] Reason for Visit Reason for Visit: Diagnoses Hypo-osmolality and hyponatremia (05/09/23) Hypokalemia (05/09/23) Unspecified intestinal obstruction, unspecified as to partial versus complete obstruction (05/09/23) Acute cystitis without hematuria (05/09/23) Benign prostatic hyperplasia with lower urinary tract symptoms (05/09/23) Other retention of urine (05/09/23) Subjective Subjective Tolerating some clears. Some flatus and BMs. Objective Data Objective Data Vital Signs: Vital Signs Temp Pulse Resp BP Pulse Ox O2 Del Method 36.3 C L 88 16 146/96 H 95 Room Air 05/15/23 05:47 05/15/23 05:47 05/15/23 05:47 05/15/23 05:47 05/15/23 05:47 05/15/23 05:47 Oxygen Delivery Method Room Air Weight: 56.245 kg Body Mass Index (BMI) 21.9 Intake & Output: Intake and Output for Last 24 Hours 05/13/23 05/14/23 05/15/23 23:59 23:59 23:59 Intake Total 5292.5 / 5532.5 4630 / 4630 1100 / 1100 Output Total 3250 / 4150 5800 / 7000 1999 / 1999 Balance 2042.5 / 1382.5 -1170 / -2370 -900 / -900 Lab / Micro Data 05/14/23 05:15 05/15/23 06:16 Labs: Laboratory Results - last 24 hr 05/14/23 05:15: Sodium 136, Potassium 3.0 L, Chloride 102, Carbon Dioxide 22.0, Anion Gap 12, BUN 3 L, Creatinine 0.32 L, Estim Creat Clear Calc 207.50, Est GFR(MDRD) Af Amer 370, Est GFR (MDRD) Non-Af 306, BUN/Creatinine Ratio 9.3 L, Glucose 82, Calcium 8.0 L Micro: Microbiology 05/09/23 05:20 Urine Catheter - Hannon Urine Culture - Final Citrobacter freundii Proteus mirabilis Physical Exam Const alert HEENT head/scalp atraumatic and moist oral mucous membranes Resp normal respiratory effort, no retractions, no use of accessory muscles and clearto auscultation bilaterally Cardio regular rate, regular rhythm, S1 normal heart sound and S2 normal heart sound GI GI Narrative: distended, but not taut. high-pitched bowel sounds. Assessment & Plan Assessment/Plan (1) SBO (small bowel obstruction): PLAN: NG tube placed in the emergency room and will continue low intermittent suction N.p.o. Antiemetics 05/09: Discussed with the patient and his sister, that my recommendation is for the patient to be transferred as I do not have surgery available at this institution that would be able to do any management in case he gets worse. I did review through [facility] SBFT from March and xrays at [facility]. If patient does get worse, I told them both that it could be detrimental to his health and even his life. They both expressed understanding. If this is found to be more of a motility issue or ileus, may consider doing gastric emptying study at a later point. SBFT from 05/09 showed incomplete SBO 05/10: KUB performed today, results pending. Started on metoclopramide. 05/11: ileus pattern still present. Treat UTI. Correct electrolytes. Had BMs 05/12: clinically unchanged. hold off on repeat Xray at this time. reattempt suppositories and enema. Clamp NG and observe. 05/13: worse. pt had been declining metoclopramide due to drowsiness. I recommended taking given lack of improvement. DW pt's sister. Replace suction toNG. NPO. continue reglan. Later in the day, pt had some BMs and flatus. Reclamped NGT and advanced to clear diets. 05/14: ongoing. Add erythromycin. 05/15: no change, but not worse. Remove NGT. Small bites and amounts of food for now. Continue metoclopramide and erythromycin. Consult GI for additional recs ([facility]LE[facility] Dr. Friend). I am concerned pt may be at or near his baseline. (2) Chronic hyponatremia: PLAN: Improved w IV fluids. Monitor Suspect due to hypovolemia (3) Urinary tract infection: QUALIFIERS: Hematuria presence: without hematuria Urinary tract infection type: acute cystitis Qualified Code(s): N30.00 - Acute cystitis without hematuria PLAN: GNR On CTX Follow up Cx. (4) BPH (benign prostatic hyperplasia): QUALIFIERS: Lower urinary tract symptom detail: urinary retention Lower urinary tract symptom presence: symptoms present Qualified Code(s): N40.1- Benign prostatic hyperplasia with lower urinary tract symptoms; R33.8 - Other retention of urine PLAN: CT showed diffuse chronic bladder wall thickening likely 2/2 chronic outlet dysfuntion in settin of large prostate. When able to take PO, start tamsulosin. (5) Hypokalemia: PLAN: Ongoing Continue to replace Magnesium WNL PLAN: Plan Chronic conditions * Spina bifida: Hold off on baclofen for now. * Hydrocephalus: SOFT SHOE DANCER shunt in place. VTE prophylaxis: SCDs CODE STATUS: Addressed with the patient. Patient wishes to be DNR Comfort Care arrest no intubation. Charges/Coding Visit Charges Inpatient E&M: 72182 Subs Hosp L2 05/15/23 1229 <Electronically signed by Richard Palacio DO> Cosigner Signature (if applicable): CC: ~ Signed [facility] Work Phone: 1(672) 310-555907-01-2023 Progress note Author Richard Palacio [facility] May 14, 2023 10:46am Note Date/Time May 14, 2023 7:31a m [facility] Medical Records Department [address] [place] [address] Progress Note - Hospitalist 05/14/23729 MR#: [id number] Acct: [id number] Name: JIAN ALTAMIRANO Rep #:[id number] : 1965 57 From: Richard Palacio DO PCP: Dr. Clifford Estes MD Status:ADM I N Location: [place] [address] Reason for Visit Reason for Visit: Diagnoses Hypo-osmolality and hyponatremia (05/09/23) Hypokalemia (05/09/23) Unspecified intestinal obstruction, unspecified as to partial versus complete obstruction (05/09/23) Acute cystitis without hematuria (05/09/23) Benign prostatic hyperplasia with lower urinary tract symptoms (05/09/23) Other retention of urine (05/09/23) Subjective Subjective Feeling ok. Tolerating some PO. Objective Data Objective Data Vital Signs: Vital Signs Temp Pulse Resp BP Pulse Ox O2 Del Method 37.2 C 77 16 139/79 H 95 Room Air 05/14/23 03:45 05/14/23 03:45 05/14/23 03:45 05/14/23 03:45 05/14/23 03:45 05/14/23 03:45 Oxygen Delivery Method Room Air Weight: 56.245 kg Body Mass Index (BMI) 21.9 Intake & Output: Intake and Output for Last 24 Hours 05/12/23 05/13/23 05/14/23 23:59 23:59 23:59 Intake Total 3607.5 / 3607.5 5292.5 / 5532.5 1480 / 1480 Output Total 2550 / 2550 3250 / 4150 2300 / 2300 Balance 1057.5 / 1057.5 2042.5 / 1382.5 -820 / -820 Lab / Micro Data 05/14/23 05:15 05/14/23 05:15 Labs: Laboratory Results - last 24 hr 05/14/23 05:15: WBC 10.9, RBC 3.85 L, Hgb 11.5 L, Hct 34.5 L, MCV 89.6, MCH 29.9, MCHC 33.3, RDW Std Deviation 39.9, RDW Coeff of Frieda 12.2, Plt Count 340, MPV 11.0, Immature Gran % (Auto) 0.400, Neut % (Auto) 69.3, Lymph % (Auto) 16.5 L, [place] % (Auto) 12.0 H, Eos % (Auto) 1.5, Baso % (Auto) 0.3, Absolute Neuts (auto) 7.6, Absolute Lymphs (auto) 1.80, Nucleated RBC % 0 Micro: Microbiology 05/09/23 05:20 Urine Catheter - Hannon Urine Culture - Final Citrobacter freundii Proteus mirabilis Physical Exam Const alert Resp normal respiratory effort, no retractions, no use of accessory muscles and clearto auscultation bilaterally Cardio regular rate, regular rhythm, S1 normal heart sound and S2 normal heart sound GI normal to inspection, nondistended, normoactive bowel sounds GI Narrative: distended. high pitched bowel sounds Assessment & Plan Assessment/Plan (1) SBO (small bowel obstruction): PLAN: NG tube placed in the emergency room and will continue low intermittent suction N.p.o. Antiemetics 05/09: Discussed with the patient and his sister, that my recommendation is for the patient to be transferred as I do not have surgery available at this institution that would be able to do any management in case he gets worse. I did review through [facility] SBFT from March and xrays at [facility]. If patient does get worse, I told them both that it could be detrimental to his health and even his life. They both expressed understanding. If this is found to be more of a motility issue or ileus, may consider doing gastric emptying study at a later point. SBFT from 05/09 showed incomplete SBO 05/10: KUB performed today, results pending. Started on metoclopramide. 05/11: ileus pattern still present. Treat UTI. Correct electrolytes. Had BMs 05/12: clinically unchanged. hold off on repeat Xray at this time. reattempt suppositories and enema. Clamp NG and observe. 05/13: worse. pt had been declining metoclopramide due to drowsiness. I recommended taking given lack of improvement. DW pt's sister. Replace suction toNG. NPO. continue reglan. Later in the day, pt had some BMs and flatus. Reclamped NGT and advanced to clear diets. 05/14: ongoing. Add erythromycin. (2) Chronic hyponatremia: PLAN: Improved w IV fluids. Monitor Suspect due to hypovolemia (3) Urinary tract infection: QUALIFIERS: Hematuria presence: without hematuria Urinary tract infection type: acute cystitis Qualified Code(s): N30.00 - Acute cystitis without hematuria PLAN: GNR On CTX Follow up Cx. (4) BPH (benign prostatic hyperplasia): QUALIFIERS: Lower urinary tract symptom detail: urinary retention Lower urinary tract symptom presence: symptoms present Qualified Code(s): N40.1- Benign prostatic hyperplasia with lower urinary tract symptoms; R33.8 - Other retention of urine PLAN: CT showed diffuse chronic bladder wall thickening likely 2/2 chronic outlet dysfuntion in settin of large prostate. When able to take PO, start tamsulosin. (5) Hypokalemia: PLAN: Ongoing Continue to replace Magnesium WNL PLAN: Plan Chronic conditions * Spina bifida: Hold off on baclofen for now. * Hydrocephalus: SOFT SHOE DANCER shunt in place. VTE prophylaxis: SCDs CODE STATUS: Addressed with the patient. Patient wishes to be DNR Comfort Care arrest no intubation. Charges/Coding Visit Charges Inpatient E&M: 87104 Subs Hosp L2 05/14/23 1046 <Electronically signed by Richard Palacio DO> Cosigner Signature (if applicable): CC: ~ Signed [facility] Work Phone: 1(193) 263-517606-30-2023 Progress note Author Richard Palacio [facility] May 13, 2023 12:13pm Note Date/Time May 13, 2023 8:34 am [facility] Medical Records Department [address] [place] [address] Progress Note - Hospitalist 05/13/23 0833 MR#: [id number] Acct: [id number] Name: JIAN ALTAMIRANO Rep #:[id number] : 1965 57 From: Richard Palacio DO PCP: Dr. Clifford Estes MD Status:ADM I N Location: [place] [address] Reason for Visit Reason for Visit: Diagnoses Hypo-osmolality and hyponatremia (05/09/23) Hypokalemia (05/09/23) Unspecified intestinal obstruction, unspecified as to partial versus complete obstruction (05/09/23) Acute cystitis without hematuria (05/09/23) Benign prostatic hyperplasia with lower urinary tract symptoms (05/09/23) Other retention of urine (05/09/23) Subjective Subjective Some BM. Abdomen more distended. Declined metoclopramide as it made him drowsy. Objective Data Objective Data Vital Signs: Vital Signs Temp Pulse Resp BP Pulse Ox O2 Del Method 36.6 C 81 16 112/68 95 Room Air 05/13/23 03:02 05/13/23 03:02 05/13/23 03:02 05/13/23 03:02 05/13/23 03:02 05/13/23 03:02 Oxygen Delivery Method Room Air Weight: 56.245 kg Body Mass Index (BMI) 21.9 Intake & Output: Intake and Output for Last 24 Hours 05/11/23 05/12/23 05/13/23 23:59 23:59 23:59 Intake Total 5050 / 5050 3607.5 / 3607.5 2500 / 2500 Output Total 3100 / 3100 2550 / 2550 900 / 900 Balance 1950 / 1950 1057.5 / 1057.5 1600 / 1600 Lab / Micro Data 05/11/23 05:25 05/13/23 05:25 Labs: Laboratory Results - last 24 hr 05/12/23 14:40: Sodium 138, Potassium 3.6, Chloride 104, Carbon Dioxide 23.0, Anion Gap 11, BUN 8, Creatinine 0.55 L, Estim Creat Clear Calc 120.73, Est GFR (MDRD) Af Amer 200, Est GFR (MDRD) Non-Af 166, BUN/Creatinine Ratio 14.7, Glucose 80, Calcium 8.0 L 05/13/23 05:25: Sodium 134 L, Potassium 3.0 L, Chloride 103, Carbon Dioxide 19.0L, Anion Gap 12, BUN 6 L, Creatinine 0.37 L, Estim Creat Clear Calc 179.46, Est GFR (MDRD) Af Amer 314, Est GFR (MDRD) Non-Af 259, BUN/Creatinine Ratio 16.2, Glucose 95, Calcium 7.3 L Micro: Microbiology 05/09/23 05:20 Urine Catheter - Hannon Urine Culture - Final Citrobacter freundii Proteus mirabilis Physical Exam Const alert and no apparent distress HEENT head/scalp atraumatic and moist oral mucous membranes Resp normal respiratory effort, no retractions, no use of accessory muscles and clearto auscultation bilaterally Cardio regular rate and regular rhythm GI GI Narrative: distended. high pitched bowel sounds. Assessment & Plan Assessment/Plan (1) SBO (small bowel obstruction): PLAN: NG tube placed in the emergency room and will continue low intermittent suction N.p.o. Antiemetics 05/09: Discussed with the patient and his sister, that my recommendation is for the patient to be transferred as I do not have surgery available at this institution that would be able to do any management in case he gets worse. I did review through [facility] SBFT from March and xrays at [facility]. If patient does get worse, I told them both that it could be detrimental to his health and even his life. They both expressed understanding. If this is found to be more of a motility issue or ileus, may consider doing gastric emptying study at a later point. SBFT from 05/09 showed incomplete SBO 05/10: KUB performed today, results pending. Started on metoclopramide. 05/11: ileus pattern still present. Treat UTI. Correct electrolytes. Had BMs 05/12: clinically unchanged. hold off on repeat Xray at this time. reattempt suppositories and enema. Clamp NG and observe. 05/13: worse. pt had been declining metoclopramide due to drowsiness. I recommended taking given lack of improvement. DW pt's sister. Replace suction toNG. NPO. continue reglan. (2) Chronic hyponatremia: PLAN: Improved w IV fluids. Monitor Suspect due to hypovolemia (3) Urinary tract infection: QUALIFIERS: Hematuria presence: without hematuria Urinary tract infection type: acute cystitis Qualified Code(s): N30.00 - Acute cystitis without hematuria PLAN: GNR On CTX Follow up Cx. (4) BPH (benign prostatic hyperplasia): QUALIFIERS: Lower urinary tract symptom detail: urinary retention Lower urinary tract symptom presence: symptoms present Qualified Code(s): N40.1- Benign prostatic hyperplasia with lower urinary tract symptoms; R33.8 - Other retention of urine PLAN: CT showed diffuse chronic bladder wall thickening likely 2/2 chronic outlet dysfuntion in settin of large prostate. When able to take PO, start tamsulosin. (5) Hypokalemia: PLAN: Ongoing Continue to replace Magnesium WNL PLAN: Plan Chronic conditions * Spina bifida: Hold off on baclofen for now. * Hydrocephalus: SOFT SHOE DANCER shunt in place. VTE prophylaxis: SCDs CODE STATUS: Addressed with the patient. Patient wishes to be DNR Comfort Care arrest no intubation. Charges/Coding Visit Charges Inpatient E&M: 78823 Subs Hosp L2 05/13/23 1213 <Electronically signed by Richard Palacio DO> Cosigner Signature (if applicable): CC: ~ Signed [facility] Work Phone: [phone]) 767-301906-30-2023 Progress note Author Richard [facility] May 13, 2023 8:32am Note Date/Time May 13, 2023 8:32 am [facility] Medical Records Department [address] [place] [address] Progress Note - Hospitalist 05/13/23 0832 MR#: [id number] Acct: [id number] Name: JIAN ALTAMIRANO Rep #:[id number] : 1965 57 From: Richard Palacio DO PCP: Dr. Clifford Estes MD Status:ADM I N Location: [place] [address] Reason for Visit Reason for Visit: Diagnoses Hypo-osmolality and hyponatremia (05/09/23) Hypokalemia (05/09/23) Unspecified intestinal obstruction, unspecified as to partial versus complete obstruction (05/09/23) Acute cystitis without hematuria (05/09/23) Benign prostatic hyperplasia with lower urinary tract symptoms (05/09/23) Other retention of urine (05/09/23) Objective Data Objective Data Vital Signs: Vital Signs Temp Pulse Resp BP Pulse Ox O2 Del Method 36.6 C 81 16 112/68 95 Room Air 05/13/23 03:02 05/13/23 03:02 05/13/23 03:02 05/13/23 03:02 05/13/23 03:02 05/13/23 03:02 Oxygen Delivery Method Room Air Weight: 56.245 kg Body Mass Index (BMI) 21.9 Intake & Output: Intake and Output for Last 24 Hours 05/11/23 05/12/23 05/13/23 23:59 23:59 23:59 Intake Total 5050 / 5050 3607.5 / 3607.5 2500 / 2500 Output Total 3100 / 3100 2550 / 2550 900 / 900 Balance 1950 / 1950 1057.5 / 1057.5 1600 / 1600 Lab / Micro Data 05/11/23 05:25 05/13/23 05:25 Labs: Laboratory Results - last 24 hr 05/12/23 14:40: Sodium 138, Potassium 3.6, Chloride 104, Carbon Dioxide 23.0, Anion Gap 11, BUN 8, Creatinine 0.55 L, Estim Creat Clear Calc 120.73, Est GFR (MDRD) Af Amer 200, Est GFR (MDRD) Non-Af 166, BUN/Creatinine Ratio 14.7, Glucose 80, Calcium 8.0 L 05/13/23 05:25: Sodium 134 L, Potassium 3.0 L, Chloride 103, Carbon Dioxide 19.0L, Anion Gap 12, BUN 6 L, Creatinine 0.37 L, Estim Creat Clear Calc 179.46, Est GFR (MDRD) Af Amer 314, Est GFR (MDRD) Non-Af 259, BUN/Creatinine Ratio 16.2, Glucose 95, Calcium 7.3 L Micro: Microbiology 05/09/23 05:20 Urine Catheter - Hannon Urine Culture - Final Citrobacter freundii Proteus mirabilis 05/13/23 0832 <Electronically signed by Richard Palacio DO> Cosigner Signature (if applicable): CC: ~ Signed [facility] Work Phone: 1(847) 275-532306-29-2023 Progress note Author Richard Palacio [facility] May 12, 2023 2:18pm Note Date/Time May 12, 2023 8:43 am [facility] Medical Records Department [address] [place] [address] Progress Note - Hospitalist 05/12/23 0840 MR#: [id number] Acct: [id number] Name: JIAN ALTAMIRANO Rep #:[id number] : 1965 57 From: Richard Palacio DO PCP: Dr. Clifford Estes MD Status:ADM I N Location: [place] [address] Reason for Visit Reason for Visit: Diagnoses Hypo-osmolality and hyponatremia (05/09/23) Hypokalemia (05/09/23) Unspecified intestinal obstruction, unspecified as to partial versus complete obstruction (05/09/23) Acute cystitis without hematuria (05/09/23) Benign prostatic hyperplasia with lower urinary tract symptoms (05/09/23) Other retention of urine (05/09/23) Subjective Subjective Had some BMs yesterday after suppositories and tap water enema. Objective Data Objective Data Vital Signs: Vital Signs Temp Pulse Resp BP Pulse Ox O2 Del Method 37.1 C 84 16 130/78 H 96 Room Air 05/12/23 08:27 05/12/23 08:27 05/12/23 08:27 05/12/23 08:27 05/12/23 08:27 05/12/23 08:27 Oxygen Delivery Method Room Air Weight: 56.245 kg Body Mass Index (BMI) 21.9 Intake & Output: Intake and Output for Last 24 Hours 05/10/23 05/11/23 05/12/23 23:59 23:59 23:59 Intake Total 4240.0 / 4240.0 5050 / 5050 1312.5 / 1312.5 Output Total 3750 / 3750 3100 / 3100 950 / 950 Balance 490.0 / 490.0 1950 / 1950 362.5 / 362.5 Lab / Micro Data 05/11/23 05:25 05/12/23 05:40 Labs: Laboratory Results - last 24 hr 05/11/23 05:25: Magnesium 2.3 05/12/23 05:40: Sodium 138, Potassium 2.8 L, Chloride 106, Carbon Dioxide 24.0, Anion Gap 8, BUN 9, Creatinine 0.44 L, Estim Creat Clear Calc 150.91, Est GFR (MDRD) Af Amer 254, Est GFR (MDRD) Non-Af 210, BUN/Creatinine Ratio 20.2 H, Glucose 78, Calcium 7.9 L Micro: Microbiology 05/09/23 05:20 Urine Catheter - Hannon Urine Culture - Preliminary GNR lactose field service representative Gram negative kennedy Radiography Diagnostic Testing: Radiology Impression KUB X-Ray 05/11/23 07:16 IMPRESSION: Stable examination. Electronically Signed: Kingsley Butler MD at 8:42 EDT , Physical Exam Const alert and no apparent distress HEENT head/scalp atraumatic and moist oral mucous membranes Resp normal respiratory effort, no retractions, no use of accessory muscles and clearto auscultation bilaterally Cardio regular rate, regular rhythm, S1 normal heart sound and S2 normal heart sound GI GI Narrative: hypoactive BS. distended. NT. Assessment & Plan Assessment/Plan (1) SBO (small bowel obstruction): PLAN: NG tube placed in the emergency room and will continue low intermittent suction N.p.o. Antiemetics 05/09: Discussed with the patient and his sister, that my recommendation is for the patient to be transferred as I do not have surgery available at this institution that would be able to do any management in case he gets worse. I did review through [facility] SBFT from March and xrays at [facility]. If patient does get worse, I told them both that it could be detrimental to his health and even his life. They both expressed understanding. If this is found to be more of a motility issue or ileus, may consider doing gastric emptying study at a later point. SBFT from 05/09 showed incomplete SBO 05/10: KUB performed today, results pending. Started on metoclopramide. 05/11: ileus pattern still present. Treat UTI. Correct electrolytes. Had BMs 05/12: clinically unchanged. hold off on repeat Xray at this time. reattempt suppositories and enema. Clamp NG and observe. (2) Chronic hyponatremia: PLAN: Improved w IV fluids. Monitor Suspect due to hypovolemia (3) Urinary tract infection: QUALIFIERS: Hematuria presence: without hematuria Urinary tract infection type: acute cystitis Qualified Code(s): N30.00 - Acute cystitis without hematuria PLAN: GNR On CTX Follow up Cx. (4) BPH (benign prostatic hyperplasia): QUALIFIERS: Lower urinary tract symptom detail: urinary retention Lower urinary tract symptom presence: symptoms present Qualified Code(s): N40.1- Benign prostatic hyperplasia with lower urinary tract symptoms; R33.8 - Other retention of urine PLAN: CT showed diffuse chronic bladder wall thickening likely 2/2 chronic outlet dysfuntion in settin of large prostate. When able to take PO, start tamsulosin. (5) Hypokalemia: PLAN: Ongoing Replace Magnesium WNL PLAN: Plan Chronic conditions * Spina bifida: Hold off on baclofen for now. * Hydrocephalus: SOFT SHOE DANCER shunt in place. VTE prophylaxis: SCDs CODE STATUS: Addressed with the patient. Patient wishes to be DNR Comfort Care arrest no intubation. Charges/Coding Visit Charges Inpatient E&M: 19603 Subs Hosp L2 05/12/23 1106 <Electronically signed by Richard Palacio DO> Cosigner Signature (if applicable): CC: ~ Signed ADDENDUM by Dr. Richard Palacio DO on 05/12/23 at 1418 Addendum When followed up in the patient this afternoon. His abdomen is softer but stilldistended. Patient still complaining of crampy abdominal pain. Patient has received his Dulcolax suppositories as well as tapwater enemas has had some stool. Patient's sister is present, who is his primary lawn care worker at home. She states that her hearing some gurgling which may indicate good sign that this motility issue may be resolving given her prior experience with him. She is requesting another dose of Dulcolax today. Feel that is reasonable. We can start the patient on ice chips and liquids. Continue to clamp the NG. Patient does seem to do well then we can later advance his diet to liquids but I would keep the NG tube in place until we know for sure that he is currently through this ordeal. 05/12/23 1418<Electronically signed by Richard Palacio DO> Cosigner Signature (if applicable): cc: ~* Signed [facility] Work Phone: [phone]) 900-551406-28-2023 Progress note Author Richard Palacio [facility] May 11, 2023 10:49am Note Date/Time May 11, 2023 7:17 am [facility] Medical Records Department [address] [place] [address] Progress Note - Hospitalist 05/11/23 0715 MR#: [id number] Acct: [id number] Name: JIAN ALTAMIRANO Rep #:[id number] : 1965 57 From: Richard Palacio DO PCP: Dr. Clifford Estes MD Status:ADM I N Location: [place] [address] Reason for Visit Reason for Visit: Diagnoses Hypo-osmolality and hyponatremia (05/09/23) Unspecified intestinal obstruction, unspecified as to partial versus complete obstruction (05/09/23) Subjective Subjective Some flatus when lying on his side. Objective Data Objective Data Vital Signs: Vital Signs Temp Pulse Resp BP Pulse Ox O2 Del Method 36.6 C 84 16 140/59 H 100 Room Air 05/11/23 01:48 05/11/23 01:48 05/11/23 01:48 05/11/23 01:48 05/11/23 01:48 05/11/23 01:48 Oxygen Delivery Method Room Air Weight: 56.245 kg Body Mass Index (BMI) 21.9 Intake & Output: Intake and Output for Last 24 Hours 05/09/23 05/10/23 05/11/23 23:59 23:59 23:59 Intake Total 3240 / 3240 4240.0 / 4240.0 100 / 100 Output Total 2750 / 2750 3750 / 3750 Balance 490 / 490 490.0 / 490.0 100 / 100 Lab / Micro Data 05/11/23 05:25 05/11/23 05:25 Labs: Laboratory Results - last 24 hr 05/11/23 05:25: WBC 13.6 H, RBC 3.69 L, Hgb 11.1 L, Hct 33.8 L, MCV 91.6, MCH 30.1, MCHC 32.8, RDW Std Deviation 43.8, RDW Coeff of Frieda 13.0, Plt Count 286, MPV 11.0, Immature Gran % (Auto) 0.600, Neut % (Auto) 80.8 H, Lymph % (Auto) 7.7L, [place] % (Auto) 10.8 H, Eos % (Auto) 0.0, Baso % (Auto) 0.1, Absolute Neuts (auto) 11.0 H, Absolute Lymphs (auto) 1.04, Nucleated RBC % 0 Micro: Microbiology 05/09/23 05:20 Urine Catheter - Hannon Urine Culture - Preliminary GNR lactose field service representative Gram negative kennedy Radiography Diagnostic Testing: Radiology Impression KUB X-Ray 05/10/23 07:41 IMPRESSION: Contrast is seen within the colon. Persistent ileus distention of the colon and small bowel. Electronically Signed: Kingsley Butler MD at 13:45 EDT , Physical Exam Const alert and no apparent distress HEENT HEENT Narrative: NGT in place. Resp normal respiratory effort, no retractions, no use of accessory muscles and clearto auscultation bilaterally Cardio regular rate, regular rhythm, S1 normal heart sound and S2 normal heart sound GI normal to inspection, nondistended, normoactive bowel sounds, soft to palpation and non-tender Assessment & Plan Assessment/Plan (1) SBO (small bowel obstruction): PLAN: NG tube placed in the emergency room and will continue low intermittent suction N.p.o. Antiemetics 05/09: Discussed with the patient and his sister, that my recommendation is for the patient to be transferred as I do not have surgery available at this institution that would be able to do any management in case he gets worse. I did review through [facility] SBFT from March and xrays at [facility]. If patient does get worse, I told them both that it could be detrimental to his health and even his life. They both expressed understanding. If this is found to be more of a motility issue or ileus, may consider doing gastric emptying study at a later point. SBFT from 05/09 showed incomplete SBO 05/10: KUB performed today, results pending. Started on metoclopramide. 05/11: ileus pattern still present. Treat UTI. Correct electrolytes. (2) Chronic hyponatremia: PLAN: Improved w IV fluids. Monitor Suspect due to hypovolemia (3) Urinary tract infection: QUALIFIERS: Hematuria presence: without hematuria Urinary tract infection type: acute cystitis Qualified Code(s): N30.00 - Acute cystitis without hematuria PLAN: GNR On CTX Follow up Cx. (4) BPH (benign prostatic hyperplasia): QUALIFIERS: Lower urinary tract symptom presence: symptoms present Lower urinary tract symptom detail: urinary retention Qualified Code(s): N40.1- Benign prostatic hyperplasia with lower urinary tract symptoms; R33.8 - Other retention of urine PLAN: CT showed diffuse chronic bladder wall thickening likely 2/2 chronic outlet dysfuntion in settin of large prostate. When able to take PO, start tamsulosin. (5) Hypokalemia: PLAN: Replace Check Mag and replace if low. PLAN: Plan Chronic conditions * Spina bifida: Hold off on baclofen for now. * Hydrocephalus: SOFT SHOE DANCER shunt in place. VTE prophylaxis: SCDs CODE STATUS: Addressed with the patient. Patient wishes to be DNR Comfort Care arrest no intubation. Charges/Coding Visit Charges Inpatient E&M: 05858 Subs Hosp L2 05/11/23 1049 <Electronically signed by Richard Palacio DO> Cosigner Signature (if applicable): CC: ~ Signed [facility] Work Phone: 1(435) 229-388506-27-2023 Progress note Author Richard [facility] May 10, 2023 1:59pm Note Date/Time May 10, 2023 7:41 am [facility] Medical Records Department [address] [place] [id number] Progress Note - Hospitalist 05/10/23 0738 MR#: [id number] Acct: [id number] Name: JIAN ALTAMIRANO Rep #:[id number] : 1965 57 From: Richard Palacio DO PCP: Dr. Clifford Estes MD Status:ADM I N Location: [place] [address]1 Reason for Visit Reason for Visit: Diagnoses Hypo-osmolality and hyponatremia (05/09/23) Unspecified intestinal obstruction, unspecified as to partial versus complete obstruction (05/09/23) Subjective Subjective Denies flatus or any bowel movements. Feels that he should have a suppository for bowel movement. Objective Data Objective Data Vital Signs: Vital Signs Temp Pulse Resp BP Pulse Ox O2 Del Method 37.4 C H 84 18 134/86 H 94 Room Air 05/10/23 05:48 05/10/23 05:48 05/10/23 05:48 05/10/23 05:48 05/10/23 05:48 05/10/23 05:48 Oxygen Delivery Method Room Air Weight: 56.245 kg Body Mass Index (BMI) 21.9 Intake & Output: Intake and Output for Last 24 Hours 05/08/23 05/09/23 05/10/23 23:59 23:59 23:59 Intake Total 3240 / 3240 1890.0 / 1890.0 Output Total 2750 / 2750 900 / 900 Balance 490 / 490 990.0 / 990.0 Lab / Micro Data Result Diagrams: 05/10/23 05:21 05/10/23 05:21 Labs: Laboratory Results - last 24 hr 05/10/23 05:21: WBC 14.3 H, RBC 3.99 L, Hgb 11.8 L, Hct 36.0 L, MCV 90.2, MCH 29.6, MCHC 32.8, RDW Std Deviation 43.0, RDW Coeff of Frieda 13.0, Plt Count 328, MPV 10.6, Immature Gran % (Auto) 0.400, Neut % (Auto) 80.6 H, Lymph % (Auto) 8.5L, [place] % (Auto) 10.4 H, Eos % (Auto) 0.0, Baso % (Auto) 0.1, Absolute Neuts (auto) 11.5 H, Absolute Lymphs (auto) 1.22, Nucleated RBC % 0 05/10/23 05:21: Sodium 140, Potassium 3.4 L, Chloride 109 H, Carbon Dioxide 26.0, Anion Gap 5, BUN 17, Creatinine 0.66 L, Estim Creat Clear Calc 100.61, EstGFR (MDRD) Af Amer 160, Est GFR (MDRD) Non-Af 132, BUN/Creatinine Ratio 25.6 H, Glucose 119 H, Calcium 7.6 L Radiography Diagnostic Testing: Radiology Impression KUB X-Ray 05/09/23 07:20 IMPRESSION: Satisfactory endogastric tube placement. Persistent diffuse bowel ileus. Electronically Signed: Chemo Bell MD at 8:26 EDT , Small Bowel X-Ray 05/09/23 10:30 IMPRESSION: Incomplete small bowel obstruction Electronically Signed: Chris Romero MD at 18:16 EDT , Physical Exam Const alert and no apparent distress Constitutional Narrative: NG tube in place with bilious gastric drainage. Resp normal respiratory effort, no retractions, no use of accessory muscles and clearto auscultation bilaterally Cardio regular rate, regular rhythm, S1 normal heart sound and S2 normal heart sound GI GI Narrative: Hypoactive bowel sounds. Nontender. Distended. Extremity normal to inspection Neuro Sensorium / Orientation: awake Assessment & Plan Assessment/Plan (1) SBO (small bowel obstruction): PLAN: NG tube placed in the emergency room and will continue low intermittent suction N.p.o. Antiemetics 05/09: Discussed with the patient and his sister, that my recommendation is for the patient to be transferred as I do not have surgery available at this institution that would be able to do any management in case he gets worse. I did review through [facility] SBFT from March and xrays at [facility]. If patient does get worse, I told them both that it could be detrimental to his health and even his life. They both expressed understanding. If this is found to be more of a motility issue or ileus, may consider doing gastric emptying study at a later point. SBFT from 05/09 showed incomplete SBO 05/10: KUB performed today, results pending. (2) Chronic hyponatremia: PLAN: Improved w IV fluids. Monitor Suspect due to hypovolemia PLAN: Plan Abnormal urinalysis: Not consistent with urinary tract infection. Patient did receive antibiotics. Urinary tract infection ruled out. Chronic conditions * Spina bifida: Hold off on baclofen for now. * Hydrocephalus: SOFT SHOE DANCER shunt in place. VTE prophylaxis: SCDs CODE STATUS: Addressed with the patient. Patient wishes to be DNR Comfort Care arrest no intubation. Charges/Coding Visit Charges Inpatient E&M: 92527 Subs Hosp L2 05/10/23 1100 <Electronically signed by Richard Palacio DO> Cosigner Signature (if applicable): CC: ~ Signed ADDENDUM by Dr. Richard Palacio DO on 05/10/23 at 1359 Addendum Abdominal x-ray showing more of an ileus type pattern rather than small bowel obstruction. Updated the patient's sister and she still concerned with the patient's urine output. Stated that his kidney function looks okay at this point time we will continue to keep an eye on him and his urine output. Urine culture is showing gram-negative rods greater than 100,000. We will start ceftriaxone and wait on final results from urine culture. We will start the patient on metoclopramide for is ileus and gastroparesis. 05/10/23 1359<Electronically signed by Richard Palacio DO> Cosigner Signature (if applicable): cc: ~* Signed [facility] Work Phone: 1(337) 869-298606-26-2023 Discharge summary Author Mark Thomas [facility] May 09, 2023 9:36am Note Date/Time May 09, 2023 3:51 am [facility] Medical Records Department [address] [place] [address] Emergency Department Summary 05/09/23 MR#: [id number] Acct: [id number] Name: JIAN ALTAMIRANO Rep #:[id number] : 1965 57 From: Abdirahman Jones DO PCP: Dr. Clifford Estes MD Status:REG E R Location: ED ADDENDUM by Dr. Mark Thomas MD on 05/09/23 at 0936 Patient was turned over to me from the overnight physician. I spoke to [facility] about a possible transfer. I spoke to surgeon who knows this patient. They had done a small bowel follow-through on the patient on his last admission there in March. Said this is not really a surgical issue and its more of a motility issue. [place] that he could be cared for at our facility if possible. I spoke to the hospitalist Dr. Richard menon you came down evaluated the patient and has written for admission 05/09/23 0936<Electronically signed by Mark Thomas MD> Cosigner Signature (if applicable): cc: Dr. Clifford Estes MD ~* Signed HPI History of Present Illness Chief Complaint: GI Bleed Informant: patient, legal guardian and family Narrative Narrative: Patient is a 57-year-old male with complex medical history of recurrent small bowel obstructions recurrent urinary tract infections chronic indwelling Hannon catheter and hydrocephalus requiring SOFT SHOE DANCER shunt as well as gastroparesis. His sister is his primary lawn care worker. She states that today he was having difficultywith bowel movements and she was concerned that he could be developing an obstruction once again and she gave him enemas and eventually was able to have alarge bowel movement. She states that she thought he was doing better but that this evening/morning he developed abdominal pain and had 2 or 3 bouts of vomiting and there was red discoloration to it. She states that she is unsure if it was blood or not as it did not have "the normal blood smell". She also states that he did have pizza this evening and there is chance that the discoloration could have been from the marinara sauce. However she feels like his stomach is nondistended and she is concerned that with the vomiting and the constipation he had earlier today that he is developing a repeat obstruction or potential ileus and therefore he was brought in for evaluation [facility] Medical History Bladder diverticulum Bladder stones Catheter-associated urinary tract infection Chronic indwelling Hannon catheter Gastroparesis History of urinary retention Hydrocephalus Hypertension Hyponatremia Ileus Inguinal hernia Normal pressure hydrocephalus Seizures Home Medications linaclotide 72 mcg capsule (Linzess) 290 mcg PO DAILY constipation 07/31/21 [History Last Taken 02/20/23] baclofen 5 mg tablet 5 mg PO TID spasms 07/21/22 [History Last Taken 02/20/23] Allergy/AdvReac Type Severity Reaction Status Date / Time Iodinated Contrast Media Allergy Anaphylaxis Verified 05/09/23 03:11 [Iodinated Contrast Media - IV Dye] nitrofurantoin AdvReac Upset Verified 05/09/23 03:11 Stomach Family History Father Heart disease Kidney stones Prostate disease Brother Kidney stones Other Cancer Peptic ulcer disease Surgical History S/P release of urethral stricture S/P SOFT SHOE DANCER shunt SOFT SHOE DANCER (ventriculoperitoneal) shunt status Social History household members: family Smoking Status: Never smoker alcohol intake: never substance use type: does not use ROS ROS ED Constitutional Constitutional ED: Denies chills or fever(s) Cardiovascular Cardiovascular: Denies chest pain Respiratory/Chest Respiratory/Chest: Denies cough or dyspnea Gastrointestinal Gastrointestinal: Reports abdominal pain, nausea and vomiting; Denies diarrhea Musculoskeletal Musculoskeletal: Denies back pain or myalgias Integumentary Denies rash Neurologic Neurologic: Denies headache(s) Hematologic/Lymphatic Hematologic/Lymphatic: Denies easy bleeding or easy bruising EXAM Physical Exam Const Vital Signs: 05/09/23 03:12 05/09/23 05:19 Temperature 97.3 F L Temperature Source Temporal Pulse Rate 100 86 Respiratory Rate 18 16 Blood Pressure 149/91 H 149/88 H Blood Pressure Mean 110 108 Pulse Ox 94 96 Positive well nourished and well developed General Appearance ED: well developed HEENT HEENT Narrative: Normocephalic atraumatic Eyes PERRL and EOMs intact bilaterally General Eye ED: Negative for scleral icterus Neck supple Resp normal respiratory effort and clear to auscultation bilaterally Cardio regular rate and regular rhythm GI non-tender GI Narrative: Abdomen is soft with slight distention. There is increased tympany noted in themidepigastric and left upper quadrant. However there is no obvious pain with palpation no voluntary guarding or rigidity or pulsatile mass or fluid wave. Noorganomegaly to suggest urinary retention. Auscultation: normoactive bowel sounds Palpation: soft Extremity normal to inspection Neuro CN's II-XII intact bilaterally Neuro Narrative: Patient is at his baseline mental status Sensorium / Orientation: alert Psych Psych Narrative: Patient has a flat affect Skin no rashes or lesions noted General Skin Exam: Negative for jaundice MDM MDM MDM Narrative Medical decision making narrative: Patient presented to the ER mildly hypertensive but otherwise with stable vitals. Patient and sister reported that after his enema he did have a bowel movement and large passage of gas. There was only one episode of vomiting and only questionable blood as sister reported that the emesis was red in color but that he also had pizza for dinner which could have change the color of the emesis. However as he has had recurrent bowel obstructions and he is slightly distended and had constipation and vomiting today the sister is concern for thatonce again. White count is slightly bumped at 15.7 which could just be stress response his sodium is chronically low at 127 which is near baseline and he doesnot have signs of acute kidney injury. His urine does show changes consistent with infection which correlates with his history of recurrent catheter associated UTIs but he is not showing laboratory or vital sign changes concerning for urosepsis. The urine was sent for culture and he was started on Rocephin. He has not had any further bouts of vomiting since his arrival to theER and was able to drink oral contrast without difficulty. CT scan shows intestinal dilation with transition point consistent with recurrent small bowel obstruction. Secondary to this I discussed the case with general surgery on-call. They feel that patient may does have an ileus secondary to his recurrent UTI but this also could be a recurrent SBO which may require surgery and with his SOFT SHOE DANCER shunt will require a higher level of care at a tertiary center. Family is requesting admission at this facility and therefore medicine will be contacted. Even though he is not had any bouts of vomiting after reviewing the CT scan general surgery recommends NG tube placement at this time. The case wasalso discussed with medicine but as general surgery would not be able to performany type of operation even if it was lifesaving based on his history of SOFT SHOE DANCER shuntthey recommend transfer and therefore we will reach out to the [facility] facility where he was admitted roughly 1 month ago to see if they are capable ofaccepting for recurrent care at this time. History & Record Review Discussion w/independent historian: Patient and Family Lab Data Attestation: I reviewed the patient's lab results. Labs: Laboratory Results - last 24 hr 05/09/23 05/09/23 05/09/23 03:47 03:47 03:47 WBC 15.7 H RBC 5.31 Hgb 15.5 Hct 45.9 MCV 86.4 MCH 29.2 MCHC 33.8 RDW Std Deviation 39.4 RDW Coeff of Frieda 12.5 Plt Count 423 MPV 10.0 Immature Gran % (Auto) 0.400 Neut % (Auto) 85.7 H Lymph % (Auto) 6.4 L [place] % (Auto) 7.2 Eos % (Auto) 0.1 Baso % (Auto) 0.2 Absolute Neuts (auto) 13.4 H Absolute Lymphs (auto) 1.00 Nucleated RBC % 0 Sodium 127 L Potassium 3.9 Chloride 91 L Carbon Dioxide 26.0 Anion Gap 10 BUN 19 H Creatinine 0.84 Estim Creat Clear Calc 78.98 Est GFR (MDRD) Af Amer 122 Est GFR (MDRD) Non-Af 101 BUN/Creatinine Ratio 22.6 H Glucose 135 H Lactic Acid 1.0 Calcium 9.7 Total Bilirubin 0.90 Direct Bilirubin 0.20 AST 16 ALT 19 Alkaline Phosphatase 80 Total Protein 8.0 Albumin 3.8 Globulin 4.2 Lipase 29 Urine Color Urine Clarity Urine pH Ur Specific [place] Urine Protein Urine Glucose (UA) Urine Ketones Urine Occult Blood Urine Nitrite Urine Bilirubin Urine Urobilinogen Ur Leukocyte Esterase Urine RBC Urine WBC Ur Squamous Epith Cells Urine Bacteria Urine Mucus 05/09/23 05:20 WBC RBC Hgb Hct MCV MCH MCHC RDW Std Deviation RDW Coeff of Frieda Plt Count MPV Immature Gran % (Auto) Neut % (Auto) Lymph % (Auto) [place] % (Auto) Eos % (Auto) Baso % (Auto) Absolute Neuts (auto) Absolute Lymphs (auto) Nucleated RBC % Sodium Potassium Chloride Carbon Dioxide Anion Gap BUN Creatinine Estim Creat Clear Calc Est GFR (MDRD) Af Amer Est GFR (MDRD) Non-Af BUN/Creatinine Ratio Glucose Lactic Acid Calcium Total Bilirubin Direct Bilirubin AST ALT Alkaline Phosphatase Total Protein Albumin Globulin Lipase Urine Color Yellow Urine Clarity Clear Urine pH 7.0 Ur Specific [place] 1.010 Urine Protein 15 H Urine Glucose (UA) Normal Urine Ketones 5 H Urine Occult Blood 10 H Urine Nitrite Negative Urine Bilirubin Negative Urine Urobilinogen Normal Ur Leukocyte Esterase 500 H Urine RBC 0-5 SEEN Urine WBC 25-50 SEEN Ur Squamous Epith Cells 0 SEEN Urine Bacteria 2+ Urine Mucus 0 SEEN Radiography Diagnostic Testing: Clinical Impression(s) from Imaging Studies Abdomen CT 05/09/23 03:35 IMPRESSION: 1. Progressive or recurrent distention of small bowel with transition to decompressed bowel in the central pelvis concerning for small bowel obstruction. 2. Bilateral inguinal hernias, containing bladder on the left, with dependent stones within the pelvic bladder and herniated bladder segment. Diffuse chronic bladder wall thickening likely secondary to chronic outlet dysfunction in setting of large prostate. Correlate with urine to exclude cystitis. 3. Mild bilateral renal pelviectasis. Electronically Signed: Beck Mcgovern MD at 7:01 EDT Reading Location ID and State: [facility] / [place] Tel , Service support , ADDENDUM: 05/09/23 0712 IMPRESSION: 1. Progressive or recurrent distention of small bowel with transition to decompressed bowel in the central pelvis concerning for small bowel obstruction. 2. Bilateral inguinal hernias, containing bladder on the left, with dependent stones within the pelvic bladder and herniated bladder segment. Diffuse chronic bladder wall thickening likely secondary to chronic outlet dysfunction in setting of large prostate. Correlate with urine to exclude cystitis. 3. Mild bilateral renal pelviectasis. N.B. : ALPHONSE Kim, confirmed on 05/09/2023 07:05:15 (ET) that the healthcare facility has received the radiology report. Electronically Signed: Beck Mcgovern MD at 7:01 EDT Reading Location ID and State: [facility] / [place] Tel , Service support , Management Discussion w/another healthcare provider: Hospitalist and Collection Manager Discharge Plan Triage Chief Complaint: GI Bleed ED Provider: Abdirahman Jones Dx/Rx/DC Orders Clinical Impression: Recurrent urinary tract infection, Chronic hyponatremia, SBO (small bowel obstruction) Prescriptions: No Action Linzess 72 mcg capsule 290 mcg PO DAILY Label Comments: TAKE 1 CAP BY MOUTH ONCE DAILY ON EMPTY STOMACH SWALLOW WHOLE DO NOT CHEW/CRUSH baclofen 5 MG tablet 5 mg PO TID Rx Instructions: Hold for sedation/lethargy Primary Care Provider: Clifford Estes Referrals: Clifford Estes MD [Primary Care Provider] - Disposition Disposition: Acute Care Hospital Discharge Location: [facility] What to do if you have Problems For any increased pain, shortness of breath, bleeding, nausea or vomiting, chestpain, or any unexpected problems, contact your Primary Care Provider. Call [facility], [facility] ([phone]) or report to the closest Emergency Room. Call 911 if necessary. 05/09/23 0751 <Electronically signed by Abdirahman Jones DO> Cosigner Signature (if applicable): CC: Dr. Clifford Estes MD ~ Signed [facility] Work Phone: 1(809) 820-412306-26-2023 History and physical note Author Richard Palacio [facility] May 09, 2023 9:20am Note Date/Time May 09, 2023 9:20 am [facility] Medical Records Department [address] [facility] [place] [address] H&P Exam - Hospitalist 05/09/23 0913 MR#: [id number] Acct: [id number] Name: JIAN ALTAMIRANO Rep #:[id number] : 1965 57 From: Richard Palacio DO PCP: Dr. Clifford Estes MD Status:REG E R Location: ED HPI - General General Date of Service: 05/09/23 Chief Complaint: abdominal pain and distention HPI Narrative JIAN ALTAMIRANO, is a 57 M who presents with worsening abdominal pain and distention. Began around 1 AM. CAT scan performed in the emergency room showedprogressive or recurrent distention of small bowel with transition to decompressed bowel in the central pelvis. Concerning for small bowel obstruction. NG tube was placed. ED reached out to [facility] for transfer. They reference the patient had a small bowel follow-through that he had had performed when he was transferred there month ago and showed no small bowel obstruction but was concerning for motility issue. The surgeon there recommended medical admission and conservative management. Patient's sister tells me the patient had not been feeling well for the previousfew days but did have flatus and a bowel movement yesterday. She thought that they were through the worst of it until he got worse earlier this morning. [facility] Medical History Bladder diverticulum Bladder stones Catheter-associated urinary tract infection Chronic indwelling Hannon catheter Gastroparesis History of urinary retention Hydrocephalus Hypertension Hyponatremia Ileus Inguinal hernia Normal pressure hydrocephalus Seizures Home Medications linaclotide 72 mcg capsule (Linzess) 290 mcg PO DAILY constipation 09/17/21 [History Last Taken 02/20/23] baclofen 5 mg tablet 5 mg PO TID spasms 07/21/22 [History Last Taken 02/20/23] Allergy/AdvReac Type Severity Reaction Status Date / Time Iodinated Contrast Media Allergy Anaphylaxis Verified 05/09/23 03:11 [Iodinated Contrast Media - IV Dye] nitrofurantoin AdvReac Upset Verified 05/09/23 03:11 Stomach Family History Father Heart disease Kidney stones Prostate disease Brother Kidney stones Other Cancer Peptic ulcer disease Surgical History S/P release of urethral stricture S/P SOFT SHOE DANCER shunt SOFT SHOE DANCER (ventriculoperitoneal) shunt status Social History household members: family Smoking Status: Never smoker alcohol intake: never substance use type: does not use ROS ROS Narrative All review of systems were negative except as mentioned above in the history of present illness and the other review of systems. Vital Signs Vital Signs Vital Signs: 05/09/23 03:12 05/09/23 05:19 05/09/23 07:00 Temperature 36.3 C L Temperature Source Temporal Pulse Rate 100 86 89 Respiratory Rate 18 16 18 Blood Pressure 149/91 H 149/88 H 115/80 Blood Pressure Mean 110 108 91 Pulse Ox 94 96 97 Oxygen Delivery Method Room Air 05/09/23 09:00 Temperature Temperature Source Pulse Rate Respiratory Rate Blood Pressure 126/77 H Blood Pressure Mean 93 Pulse Ox Oxygen Delivery Method Weight Weight: 56.2 kg Body Mass Index (BMI) 21.9 Physical Exam Const alert and no apparent distress HEENT normocephalic, head/scalp atraumatic and hearing grossly normal bilaterally Eyes Eyes Narrative: No icterus Neck no lymphadenopathy Resp normal respiratory effort, no retractions, no use of accessory muscles and clearto auscultation bilaterally Cardio regular rate, regular rhythm, S1 normal heart sound and S2 normal heart sound GI GI Narrative: Hypoactive bowel sounds. Nondistended. Nontender. Extremity Extremity Narrative: Atrophy Neuro Sensorium / Orientation: awake and alert Speech: speech normal Psych Psych Narrative: Flat affect Results Lab / Micro Data Attestation: I reviewed the patient's lab results. Result Diagrams: 05/09/23 03:47 05/09/23 03:47 Labs: Laboratory Results - last 24 hr 05/09/23 03:47: WBC 15.7 H, RBC 5.31, Hgb 15.5, Hct 45.9, MCV 86.4, MCH 29.2, MCHC 33.8, RDW Std Deviation 39.4, RDW Coeff of Frieda 12.5, Plt Count 423, MPV 10.0, Immature Gran % (Auto) 0.400, Neut % (Auto) 85.7 H, Lymph % (Auto) 6.4 L, [place] % (Auto) 7.2, Eos % (Auto) 0.1, Baso % (Auto) 0.2, Absolute Neuts (auto) 13.4 H, Absolute Lymphs (auto) 1.00, Nucleated RBC % 0 05/09/23 03:47: Sodium 127 L, Potassium 3.9, Chloride 91 L, Carbon Dioxide 26.0,Anion Gap 10, BUN 19 H, Creatinine 0.84, Estim Creat Clear Calc 78.98, Est GFR (MDRD) Af Amer 122, Est GFR (MDRD) Non-Af 101, BUN/Creatinine Ratio 22.6 H, Glucose 135 H, Calcium 9.7, Total Bilirubin 0.90, Direct Bilirubin 0.20, AST 16,ALT 19, Alkaline Phosphatase 80, Total Protein 8.0, Albumin 3.8, Globulin 4.2, Lipase 29 05/09/23 03:47: Lactic Acid 1.0 05/09/23 05:20: Urine Color Yellow, Urine Clarity Clear, Urine pH 7.0, Ur Specific [place] 1.010, Urine Protein 15 H, Urine Glucose (UA) Normal, Urine Ketones 5 H, Urine Occult Blood 10 H, Urine Nitrite Negative, Urine Bilirubin Negative, Urine Urobilinogen Normal, Ur Leukocyte Esterase 500 H, Urine RBC 0-5 SEEN, Urine WBC 25-50 SEEN, Ur Squamous Epith Cells 0 SEEN, Urine Bacteria 2+, Urine Mucus 0 SEEN Radiology Impression Abdomen CT 05/09/23 03:35 IMPRESSION: 1. Progressive or recurrent distention of small bowel with transition to decompressed bowel in the central pelvis concerning for small bowel obstruction. 2. Bilateral inguinal hernias, containing bladder on the left, with dependent stones within the pelvic bladder and herniated bladder segment. Diffuse chronic bladder wall thickening likely secondary to chronic outlet dysfunction in setting of large prostate. Correlate with urine to exclude cystitis. 3. Mild bilateral renal pelviectasis. Electronically Signed: Beck Mcgovern MD at 7:01 EDT , ADDENDUM: 05/09/23 0712 IMPRESSION: 1. Progressive or recurrent distention of small bowel with transition to decompressed bowel in the central pelvis concerning for small bowel obstruction. 2. Bilateral inguinal hernias, containing bladder on the left, with dependent stones within the pelvic bladder and herniated bladder segment. Diffuse chronic bladder wall thickening likely secondary to chronic outlet dysfunction in setting of large prostate. Correlate with urine to exclude cystitis. 3. Mild bilateral renal pelviectasis. N.B. : ALPHONSE Kim, confirmed on 05/09/2023 07:05:15 (ET) that the healthcare facility has received the radiology report. Electronically Signed: Beck Mcgovern MD at 7:01 EDT , KUB X-Ray 05/09/23 07:20 IMPRESSION: Satisfactory endogastric tube placement. Persistent diffuse bowel ileus. Electronically Signed: Chemo Bell MD at 8:26 EDT , Assessment & Plan Assessment/Plan (1) SBO (small bowel obstruction): PLAN: Small bowel suction versus ileus. NG tube placed in the emergency room and will continue low intermittent suction N.p.o. Antiemetics I will order a small bowel follow-through. Discussed with the patient and his sister, that my recommendation is for the patient to be transferred as I do not have surgery available at this institutionthat would be able to do any management in case he gets worse. I did review through [facility] from March and xrays at [facility] please reference hospitalization from March. If patient does get worse, I told them both that it could be detrimental to his health and even his life. They both expressed understanding. If this is found to be more of a motility issue or ileus, may consider doing gastric emptying study at a later point. (2) Chronic hyponatremia: PLAN: IV fluids. Monitor PLAN: Plan Abnormal urinalysis: Not consistent with urinary tract infection. Patient did receive antibiotics. Urinary tract infection ruled out. Chronic conditions * Spina bifida: Hold off on baclofen for now. * Hydrocephalus: SOFT SHOE DANCER shunt in place. VTE prophylaxis: SCDs CODE STATUS: Addressed with the patient. Patient wishes to be DNR Comfort Care arrest no intubation. Charges/Coding Visit Charges Inpatient E&M: 89530 Init Hosp L3 05/09/23 0920 <Electronically signed by Richard Palacio DO> Cosigner Signature (if applicable): CC: Dr. Richard Palacio DO; Dr. Clifford Estes MD~ Signed [facility] Work Phone: 1(406) 831-292306-21-2023 History of Present illness Narrative* Giselle Medina RN - 05/04/2023 2:40 PM EDT TRANSITION CARE MANAGEMENT (TCM) FOLLOW-UP NOTE Provider Action/FYI Chart reviewed. Unable to reach pt/pts sister Darrion for TCM follow-up call, left voicemail. Will continue to follow. Summary: Pt discharged from [facility] on 04/06/23. Admitted for: small bowel obstruction PMHx spina bifida, hydrocephalus s/p SOFT SHOE DANCER shunt placement, s/p chronic hannon placement Signature Giselle Medina RN May 04, 2023 [facility] History of Present illness Narrative* Giselle Medina RN - 04/20/2023 3:37 PM EDT TRANSITION CARE MANAGEMENT (TCM) FOLLOW-UP NOTE Provider Action/FYI Chart reviewed. Spoke with pts sister Darrion, states pt is doing ok, no s/s of pain, no sob, tolerating diet, having bowel movements most days. Discussed missed appt with PCP 04/14/23, states she forgotto write it down-she will reschedule with Dr Estes herself, did not want assistance with that. She states overall, pt is doing better. Will continue to follow. Patient identified by name and date of : YES Spoke to sister Darrion Caregiver Discharge Network Status: In-Network Discharge Summary: Pt discharged from [facility] on 04/06/23. Admitted for: small bowel obstruction PMHx spina bifida, hydrocephalus s/p SOFT SHOE DANCER shunt placement, s/p chronic hannon placement Signature Giselle Medina RN April 20, 2023 documented [facility] Miscellaneous Notes* Telephone Encounter - Kaylee Salguero LPN - 04/15/2023 9:01 AM EDT Notified. * Telephone Encounter - Clifford Estes MD - 04/15/2023 8:55 AM EDT Ok to do * Telephone Encounter - Melodie Kim RN - 04/15/2023 8:40 AM EDT Kael with [facility] asking provider for order to allow Long-Term to see patient monthly for catheter changes; 1 month x 1, then 2 months x 1. Please call Kael at [phone]. Thank you. documented in this encounter[facility]05-[facility] Miscellaneous Notes* Telephone Encounter - Juan Daniel Finn RN - 04/05/2023 2:00 PM EDT Maru Prakash Circular Knitter- phoned to let pcp know, patient went to [facility] ER and was admitted on 04-02-23 with intestinal obstruction and UTI, then transferred to [facility] on 04-03-23. Possible discharge tomorrow, 04-06-23 as the obstruction is resolving and will not need surgery. documented in this encounterSal[facility]05-[facility] History of Past illness Narrative* Problem Noted Date Resolved Date Small bowel obstruction 04/03/2023 04/06/20 23 CP (CEREBRAL PALSY - INFANTILE) HEMIPLEGIA, TESFAYE ENITAL 02/02/2008 05/22/2013 documented as of this encounter (statuses as of 04/14/2023) [facility] History of Past illness Narrative* Problem Noted Date Resolved Date Small bowel obstruction 04/03/2023 04/06/20 CP (CEREBRAL PALSY - INFANTILE) HEMIPLEGIA, TESFAYE ENITAL 02/02/2008 05/22/2013 documented as of this encounter (statuses as of 04/15/2023) [facility] of Past illness Narrative* Problem Noted Date Resolved Date Small bowel obstruction 04/03/2023 04/06/20 23 CP (CEREBRAL PALSY - INFANTILE) HEMIPLEGIA, TESFAYE ENITAL 02/02/2008 05/22/2013 documented as of this encounter (statuses as of 04/21/2023) [facility] of Past illness Narrative* Problem Noted Date Resolved Date Small bowel obstruction 04/03/2023 04/06/20 23 CP (CEREBRAL PALSY - INFANTILE) HEMIPLEGIA, TESFAYE ENITAL 02/02/2008 05/22/2013 documented as of this encounter (statuses as of 05/04/2023) [facility] of [facility] illness Narrative* Problem Noted Date Resolved Date Small bowel obstruction 04/03/2023 04/06/20 23 CP (CEREBRAL PALSY - INFANTILE) HEMIPLEGIA, TESFAYE ENITAL 02/02/2008 05/22/2013 documented as of this encounter (statuses as of 05/19/2023) [facility] of [facility] illness Narrative* Problem Noted Date Resolved Date Small bowel obstruction 04/03/2023 04/06/20 SBO (small bowel obstruction) 04/14/2022 CP (CEREBRAL PALSY - INFANTILE) HEMIPLEGIA, TESFAYE ENITAL 02/02/2008 05/22/2013 documented as of this encounter (statuses as of 05/20/2023) [facility] Narrative* Problem Noted Date Resolved Date Small bowel obstruction 04/03/2023 04/06/20 SBO (small bowel obstruction) 04/14/2022 CP (CEREBRAL PALSY - INFANTILE) HEMIPLEGIA, TESFAYE ENITAL 02/02/2008 05/22/2013 documented as of this encounter (statuses as of 05/20/2023) [facility] of [facility] illness Narrative* Problem Noted Date Diagnosed Date Resolved Date Small bowel obstruction 04/03/202303/15 SBO (small bowel obstruction) 04/14/2022 05/19/2023 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, 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 05/22/2013 documented as of this encounter (statuses as of 05/24/2023) [facility] Narrative* Problem Noted Date Diagnosed Date Resolved Date Small bowel obstruction 04/03/202303/15 SBO (small bowel obstruction) 04/14/2022 05/19/2023 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, 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 05/22/2013 documented as of this encounter (statuses as of 05/30/2023) [facility] Narrative* Problem Noted Date Diagnosed Date Resolved Date Small bowel obstruction 04/03/2023 0502/2023 SBO (small bowel obstruction) 04/14/2022 05/19/2023 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, 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 05/22/2013 documented as of this encounter (statuses as of 06/10/2023) [facility] Narrative* Problem Noted Date Diagnosed Date Resolved Date Small bowel obstruction 04/03/202303/15 SBO (small bowel obstruction) 04/14/2022 05/19/2023 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, 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 05/22/2013 documented as of this encounter (statuses as of 06/14/2023) [facility] Narrative* Problem Noted Date Diagnosed Date Resolved Date Small bowel obstruction 04/03/20232 02/2023 SBO (small bowel obstruction) 04/14/2022 05/19/2023 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, 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 05/22/2013 documented as of this encounter (statuses as of 06/14/2023) [facility] Narrative* Problem Noted Date Diagnosed Date Resolved Date Small bowel obstruction 04/03/202303/15 SBO (small bowel obstruction) 04/14/2022 05/19/2023 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, 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 05/22/2013 documented as of this encounter (statuses as of 06/29/2023) [facility] Narrative* Problem Noted Date Diagnosed Date Resolved Date Small bowel obstruction 04/03/202303/15 SBO (small bowel obstruction) 04/14/2022 05/19/2023 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, 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 05/22/2013 documented as of this encounter (statuses as of 07/05/2023) [facility] Narrative* Problem Noted Date Diagnosed Date Resolved Date Small bowel obstruction 04/03/202303/15 SBO (small bowel obstruction) 04/14/2022 05/19/2023 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, 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 05/22/2013 documented as of this encounter (statuses as of 07/13/2023) [address]21-2023 History of Past illness Narrative* Problem Noted Date Diagnosed Date Resolved Date Small bowel obstruction 04/03/202303/15 SBO (small bowel obstruction) 04/14/2022 05/19/2023 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, 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 05/22/2013 documented as of this encounter (statuses as of 08/04/2023) [facility] Narrative* Problem Noted Date Diagnosed Date Resolved Date Small bowel obstruction 04/03/202303/15 SBO (small bowel obstruction) 04/14/2022 05/19/2023 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, 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 05/22/2013 documented as of this encounter (statuses as of 08/05/2023) [facility] Narrative* Problem Noted Date Diagnosed Date Resolved Date Small bowel obstruction 04/03/202303/15 SBO (small bowel obstruction) 04/14/2022 05/19/2023 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, 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 05/22/2013 documented as of this encounter (statuses as of 08/12/2023) [facility] Narrative* Problem Noted Date Diagnosed Date Resolved Date Small bowel obstruction 04/03/202303/15 SBO (small bowel obstruction) 04/14/2022 05/19/2023 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, 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 05/22/2013 documented as of this encounter (statuses as of 08/16/2023) [facility] Narrative* Problem Noted Date Diagnosed Date Resolved Date Small bowel obstruction 04/03/202303/15 SBO (small bowel obstruction) 04/14/2022 05/19/2023 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, 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 05/22/2013 documented as of this encounter (statuses as of 08/20/2023) [address]21-2023 History of Past illness Narrative* Problem Noted Date Diagnosed Date Resolved Date Small bowel obstruction 04/03/202303/15 SBO (small bowel obstruction) 04/14/2022 05/19/2023 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, 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 05/22/2013 documented as of this encounter (statuses as of 08/20/2023) [facility] Narrative* Problem Noted Date Diagnosed Date Resolved Date Small bowel obstruction 04/03/202303/15 SBO (small bowel obstruction) 04/14/2022 05/19/2023 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, 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 05/22/2013 documented as of this encounter (statuses as of 09/05/2023) [facility] Narrative* Problem Noted Date Diagnosed Date Resolved Date Small bowel obstruction 04/03/202303/15 SBO (small bowel obstruction) 04/14/2022 05/19/2023 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, 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 05/22/2013 documented as of this encounter (statuses as of 09/07/2023) [facility] Narrative* Problem Noted Date Diagnosed Date Resolved Date Small bowel obstruction 04/03/202303/15 SBO (small bowel obstruction) 04/14/2022 05/19/2023 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, 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 05/22/2013 documented as of this encounter (statuses as of 09/20/2023) [facility] Narrative* Problem Noted Date Diagnosed Date Resolved Date Small bowel obstruction 04/03/202303/15 SBO (small bowel obstruction) 04/14/2022 05/19/2023 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, 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 05/22/2013 documented as of this encounter (statuses as of 09/21/2023) [facility] Narrative* Problem Noted Date Diagnosed Date Resolved Date Small bowel obstruction 04/03/202303/15 SBO (small bowel obstruction) 04/14/2022 05/19/2023 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, 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 05/22/2013 documented as of this encounter (statuses as of 09/23/2023) [facility] Narrative* Problem Noted Date Diagnosed Date Resolved Date Small bowel obstruction 04/03/20232 02/2023 SBO (small bowel obstruction) 04/14/2022 05/19/2023 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, 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 05/22/2013 documented as of this encounter (statuses as of 09/23/2023) [facility] Narrative* Problem Noted Date Diagnosed Date Resolved Date Small bowel obstruction 04/03/20232 02/2023 SBO (small bowel obstruction) 04/14/2022 05/19/2023 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, 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 05/22/2013 documented as of this encounter (statuses as of 09/26/2023) [facility] Narrative* Problem Noted Date Diagnosed Date Resolved Date Small bowel obstruction 04/03/202303/15 SBO (small bowel obstruction) 04/14/2022 05/19/2023 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, 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 05/22/2013 documented as of this encounter (statuses as of 09/27/2023) [facility] Narrative* Problem Noted Date Diagnosed Date Resolved Date Small bowel obstruction 04/03/202303/15 SBO (small bowel obstruction) 04/14/2022 05/19/2023 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, 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 05/22/2013 documented as of this encounter (statuses as of 09/28/2023) [facility] Narrative* Problem Noted Date Diagnosed Date Resolved Date Small bowel obstruction 04/03/202303/15 SBO (small bowel obstruction) 04/14/2022 05/19/2023 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, 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 05/22/2013 documented as of this encounter (statuses as of 09/30/2023) [facility] Narrative* Problem Noted Date Diagnosed Date Resolved Date Small bowel obstruction 04/03/20232 02/2023 SBO (small bowel obstruction) 04/14/2022 05/19/2023 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, 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 05/22/2013 documented as of this encounter (statuses as of 10/05/2023) [facility] Narrative* Problem Noted Date Diagnosed Date Resolved Date Small bowel obstruction 04/03/202303/15 SBO (small bowel obstruction) 04/14/2022 05/19/2023 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, 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 05/22/2013 documented as of this encounter (statuses as of 10/14/2023) [facility] Narrative* Problem Noted Date Diagnosed Date Resolved Date Small bowel obstruction 04/03/202303/15 SBO (small bowel obstruction) 04/14/2022 05/19/2023 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, 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 05/22/2013 documented as of this encounter (statuses as of 10/15/2023) [facility]arrative* Problem Noted Date Diagnosed Date Resolved Date Small bowel obstruction 04/03/202303/15 SBO (small bowel obstruction) 04/14/2022 05/19/2023 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, 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 05/22/2013 documented as of this encounter (statuses as of 10/22/2023) [facility]arrative* Problem Noted Date Diagnosed Date Resolved Date Small bowel obstruction 04/03/202303/15 SBO (small bowel obstruction) 04/14/2022 05/19/2023 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, 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 05/22/2013 documented as of this encounter (statuses as of 10/25/2023) [facility]arrative* Problem Noted Date Diagnosed Date Resolved Date Small bowel obstruction 04/03/202303/15 SBO (small bowel obstruction) 04/14/2022 05/19/2023 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, 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 05/22/2013 documented as of this encounter (statuses as of 10/29/2023) [facility]arrative* Problem Noted Date Diagnosed Date Resolved Date Small bowel obstruction 04/03/202303/15 SBO (small bowel obstruction) 04/14/2022 05/19/2023 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, 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 05/22/2013 documented as of this encounter (statuses as of 12/22/2023) [facility]arrative* Problem Noted Date Diagnosed Date Resolved Date Small bowel obstruction 04/03/202303/15 SBO (small bowel obstruction) 04/14/2022 05/19/2023 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, 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 05/22/2013 documented as of this encounter (statuses as of 12/28/2023) [facility] Narrative* Problem Noted Date Diagnosed Date Resolved Date Small bowel obstruction 04/03/202303/15 SBO (small bowel obstruction) 04/14/2022 05/19/2023 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, 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 05/22/2013 documented as of this encounter (statuses as of 01/12/2024) [facility] Narrative* Problem Noted Date Diagnosed Date Resolved Date Small bowel obstruction 04/03/202303/15 SBO (small bowel obstruction) 04/14/2022 05/19/2023 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, 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 05/22/2013 documented as of this encounter (statuses as of 01/23/2024) [address]21-2023 History of Past illness Narrative* Problem Noted Date Diagnosed Date Resolved Date Small bowel obstruction 04/03/202303/15 SBO (small bowel obstruction) 04/14/2022 05/19/2023 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, 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 05/22/2013 documented as of this encounter (statuses as of 01/24/2024) [address]21-2023 History of Past illness Narrative* Problem Noted Date Diagnosed Date Resolved Date Small bowel obstruction 04/03/202303/15 SBO (small bowel obstruction) 04/14/2022 05/19/2023 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, 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 05/22/2013 documented as of this encounter (statuses as of 01/27/2024) [facility] Narrative* Problem Noted Date Diagnosed Date Resolved Date Small bowel obstruction 04/03/202303/15 SBO (small bowel obstruction) 04/14/2022 05/19/2023 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, 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 05/22/2013 documented as of this encounter (statuses as of 02/14/2024) [facility] Narrative* Problem Noted Date Diagnosed Date Resolved Date Small bowel obstruction 04/03/202303/15 SBO (small bowel obstruction) 04/14/2022 05/19/2023 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, 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 05/22/2013 documented as of this encounter (statuses as of 02/14/2024) [facility]05-21-2023 History of Past illness Narrative* Problem Noted Date Diagnosed Date Resolved Date Small bowel obstruction 04/03/202303/15 SBO (small bowel obstruction) 04/14/2022 05/19/2023 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, 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 05/22/2013 documented as of this encounter (statuses as of 02/20/2024) [address]21-2023 History of Past illness Narrative* Problem Noted Date Diagnosed Date Resolved Date Small bowel obstruction 04/03/202303/15 SBO (small bowel obstruction) 04/14/2022 05/19/2023 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, 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 05/22/2013 documented as of this encounter (statuses as of 02/22/2024) [facility]05-21-2023 History of Past illness Narrative* Problem Noted Date Diagnosed Date Resolved Date Small bowel obstruction 04/03/202303/15 SBO (small bowel obstruction) 04/14/2022 05/19/2023 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, 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 05/22/2013 documented as of this encounter (statuses as of 02/24/2024) [facility]05-21-2023 History of Past illness Narrative* Problem Noted Date Diagnosed Date Resolved Date Small bowel obstruction 04/03/202303/15 SBO (small bowel obstruction) 04/14/2022 05/19/2023 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, 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 Admitted for: Ileus, UTI Concerns: Attempted to reach pt for TCM follow up, VM left for sister Lesli with CC contact information. Encouraged to contact PCP for questions or concerns. Extension Edger plan for next outreach: Will continue to follow during TCM 30 day period Signature Katiana Bill RN March 08, 2023 [facility] Miscellaneous Notes* Telephone Encounter - Lesli Burton Ma - 02/25/2023 1:04 PM EDT Marisabel was notified with provider response Lesli Burton Ma * Telephone Encounter - Clifford Estes MD - 02/25/2023 12:55 PM EDT ok * Telephone Encounter - Juan Daniel Finn RN - 02/25/2023 12:48 PM EDT Marisabel, [facility], reports patient was discharged yesterday from [facility] with orders for HHC. Mariasbel spoke with sister, who is caregiver, and requested delay / resumption of care until 02-28-23. Please phone Marisabel with verbal approval. [facility] Mercer [facility] February 24, 2023 11:28am Note Date/Time February 24, 2023 11: 25am [facility] Medical Records Department [address] [place] [address] Instructions for Home/Discharge Instructions 02/24/23 1124 MR#: [id number] Acct: [id number] Name: JIAN ALTAMIRANO Reuben Rep #:[id number] : 1965 57 From: Geo Mercer DO PCP: Dr. Clifford Estes MD Status:ADM I N Discharge Instructions Diet Discharge Diet: No restrictions Activity Discharge Activity: - (Resume previous activity level) Follow Up Care Test Results: Test results from this visit will be discussed in further detail at your follow- up appointment, if applicable. Discharge Plan Admission Admit Date/Time: 02/20/23 19:51 Primary Reason for Your Visit: Ileus, urinary tract infection Attending Provider: Geo Mercer Primary Care Provider: Clifford Estes Consulting Providers: Laura Kidd ; Nikki Celestin ; Kevyn Oliva Instructions Additional Instructions / Restrictions: Follow-up with your urologist concerning your bladder stone Discharge Orders/Prescriptions Prescriptions: New cefdinir 300 mg Capsule 300 mg PO BID Qty: 9 0RF Continued Linzess 72 mcg capsule 290 mcg PO DAILY Label Comments: TAKE 1 CAP BY MOUTH ONCE DAILY ON EMPTY STOMACH SWALLOW WHOLE DO NOT CHEW/CRUSH baclofen 5 MG tablet 5 mg PO TID Rx Instructions: Hold for sedation/lethargy Referrals / Follow Up: Clifford Estes MD [Primary Care Provider] - See Referral Note (At next scheduled appointment time) Disposition Disposition (needs filled in before D/C Order can be placed): Home Health Service 02/24/23 1128<Electronically signed by Geo Mercer DO>Geo Mercer DO CC: Dr. Nikki Celestin MD; Dr. Kevyn Oliva MD; Dr. Laura Kidd MD; Dr.William Tommy MD ~ Signed [facility] Work Phone: 1(599) 188-667504-13-[address] Mercer [facility] February 24, 2023 11:24am Note Date/Time February 23, 2023 8:3 1pm [facility] Medical Records Department [address] [place] [address] Progress Note - Hospitalist 02/23/232030 MR#: [id number] Acct: [id number] Name: JAIN ALTAMIRANO Rep #:[id number] : 1965 57 From: Geo Mercer DO PCP: Dr. Clifford Estes MD Status:ADM I N Location: [place] [address]1 Reason for Visit Reason for Visit: Diagnoses Ileus, unspecified (02/20/23) Calculus in bladder (02/20/23) Subjective Subjective Patient was seen and examined today, his NG tube was removed by general surgery and he is now on liquids. I had the nurses place him back on his home meds. Objective Data Objective Data Vital Signs: Vital Signs Temp Pulse Resp BP Pulse Ox O2 Del Method 98 F 83 18 124/76 H 99 Room Air 02/23/23 15:30 02/23/23 15:30 02/23/23 15:30 02/23/23 15:30 02/23/23 15:30 02/23/23 15:30 Oxygen Delivery Method Room Air Weight: 54.4 kg Body Mass Index (BMI) 21.2 Intake & Output: Intake and Output for Last 24 Hours 02/21/23 02/22/23 02/23/23 23:59 23:59 23:59 Intake Total 4429.09 / 4429.09 3495.00 / 3495.00 2310 / 2310 Output Total 2300 / 2300 3650 / 4050 2049 / 2049 Balance 2129.09 / 2129.09 -155.00 / -555.00 260 / 260 Lab / Micro Data Result Diagrams: 02/21/23 04:25 02/21/23 04:25 Labs: Laboratory Results - last 24 hr 02/20/23 16:39: Diff Path Review Reviewed Micro: Microbiology 02/20/23 18:55 Urine, Catheterized Urine Culture - Final Proteus mirabilis Radiography Diagnostic Testing: Radiology Impression Small Bowel X-Ray 02/22/23 13:15 IMPRESSION: Although transit time is abnormal at somewhere around 16.5 hours, the Gastrografin does make it into the colon. No demonstrated obstruction, findings are system with both small and large bowel ileus. Electronically Signed: Sebastián Marcial MD at 8:55 EDT , Physical Exam Narrative alert, oriented x3 and no apparent distress General Appearance: cooperative, well kempt and well developed Orientation / Consciousness: awake, oriented to person, oriented to place and oriented to time HEENT normocephalic, head/scalp atraumatic and moist oral mucous membranes Eyes PERRL, EOMs intact bilaterally and conjunctivae normal Neck supple, no JVD, thyroid normal and no carotid bruits General: trachea midline Resp normal respiratory effort, no retractions, no use of accessory muscles and clearto auscultation bilaterally Auscultation: Negative for rales, rhonchi or wheezes Cardio regular rate, regular rhythm, S1 normal heart sound, S2 normal heart sound, no murmurs, no rub and no gallops GI soft to palpation and non-tender GI Narrative: Bowel sounds are diminished at this time Auscultation: hypoactive bowel sounds Extremity no clubbing, cyanosis or edema Skin no rashes or lesions noted General Skin Exam: no breakdown Neuro oriented x3, CN's II-XII intact bilaterally, no focal motor deficits and no sensory deficits noted Sensorium / Orientation: awake, alert, oriented to person, oriented to place andoriented to time Speech: speech normal Psych affect normal Assessment & Plan Assessment/Plan (1) Ileus: PLAN: Plan 1. Acute recurrent ileus-patient currently has an NG to suction, he is being seen by general surgery #2 acute cystitis from Proteus mirabilis associated with chronic indwelling Hannon catheter with bladder stones-patient will remain on his current antibioticcoverage #3 hyponatremia-continue to monitor sodium, IV fluids will be administered #4 chronic gastroparesis-complicates care, medical course, recovery, and prognosis #5 history of normal pressure hydrocephalus-patient ambulates with special canes, otherwise uses a wheelchair #6 bladder stone-urology states that it would be difficult to remove the stone at this time, patient is to follow-up with his urologist who is at the [facility] Total clinical time spent by myself addressing the patient's medical issues, reviewing all of his data, and collaborating with patient's care team: 36 minutes Charges/Coding Visit Charges Inpatient E&M: 9[address] [facility] Hosp L2 02/24/23 1124 <Electronically signed by Geo Mercer DO> Cosigner Signature (if applicable): CC: ~ Signed [facility] Work Phone: 1(131) 131-505104-13-[address] Mercer [facility] February 24, 2023 11:18am Note Date/Time February 22, 2023 8:5 1pm [facility] Medical Records Department [address] [place] [address] Progress Note - Hospitalist 02/22/232049 MR#: [id number] Acct: [id number] Name: JIAN ALTAMIRANO Rep #:[id number] : 1965 57 From: Geo Mercer DO PCP: Dr. Clifford Estes MD Status:ADM I N Location: [address] Reason for Visit Reason for Visit: Diagnoses Ileus, unspecified (02/20/23) Calculus in bladder (02/20/23) Subjective Subjective Patient was seen and examined today, he still has an NG in place, a small bowel follow-through was ordered by surgery today and it is not resulted at the time of this dictation. Patient has no complaints of any nausea or abdominal pain atthis time. Objective Data Objective Data Vital Signs: Vital Signs Temp Pulse Resp BP Pulse Ox O2 Del Method 98.3 F 88 18 140/90 H 98 Room Air 02/22/23 20:30 02/22/23 20:30 02/22/23 20:30 02/22/23 20:30 02/22/23 20:30 02/22/23 20:30 Oxygen Delivery Method Room Air Weight: 54.4 kg Body Mass Index (BMI) 21.2 Intake & Output: Intake and Output for Last 24 Hours 02/20/23 02/21/23 02/22/23 23:59 23:59 23:59 Intake Total 1368.33 / 1368.33 4429.09 / 4429.09 2441.25 / 2441.25 Output Total 1500 / 1500 2300 / 2300 3650 / 3650 Balance -131.67 / -131.67 2129.09 / 2129.09 -1208.75 / -1208.75 Lab / Micro Data Result Diagrams: 02/21/23 04:25 02/21/23 04:25 Micro: Microbiology 02/20/23 18:55 Urine, Catheterized Urine Culture - Final Proteus mirabilis Physical Exam Narrative alert, oriented x3 and no apparent distress General Appearance: cooperative, well kempt and well developed Orientation / Consciousness: awake, oriented to person, oriented to place and oriented to time HEENT normocephalic, head/scalp atraumatic and moist oral mucous membranes Eyes PERRL, EOMs intact bilaterally and conjunctivae normal Neck supple, no JVD, thyroid normal and no carotid bruits General: trachea midline Resp normal respiratory effort, no retractions, no use of accessory muscles and clearto auscultation bilaterally Auscultation: Negative for rales, rhonchi or wheezes Cardio regular rate, regular rhythm, S1 normal heart sound, S2 normal heart sound, no murmurs, no rub and no gallops GI soft to palpation and non-tender, NG tube in place GI Narrative: Bowel sounds are diminished at this time Auscultation: hypoactive bowel sounds Extremity no clubbing, cyanosis or edema Skin no rashes or lesions noted General Skin Exam: no breakdown Neuro oriented x3, CN's II-XII intact bilaterally, no focal motor deficits and no sensory deficits noted Sensorium / Orientation: awake, alert, oriented to person, oriented to place andoriented to time Speech: speech normal Psych affect normal Assessment & Plan Assessment/Plan (1) Ileus: PLAN: Plan 1. Acute recurrent ileus-patient currently has an NG to suction, he is being seen by general surgery #2 acute cystitis associated with chronic indwelling Hannon catheter with bladderstones-patient will remain on his current antibiotic coverage #3 hyponatremia-continue to monitor sodium, IV fluids will be administered #4 chronic gastroparesis-complicates care, medical course, recovery, and prognosis #5 history of normal pressure hydrocephalus-patient ambulates with special canes, otherwise uses a wheelchair Total clinical time spent by myself addressing the patient's medical issues, reviewing all of his data, and collaborating with patient's care team: 35 minutes Charges/Coding Visit Charges Inpatient E&M: 50438 Subs Hosp L2 02/24/23 1118 <Electronically signed by Geo Mercer DO> Cosigner Signature (if applicable): CC: ~ Signed [facility] Work Phone: 1(474) 244-564204-12-[address] Kidd [facility] February 23, 2023 4:41pm Note Date/Time February 23, 2023 4:4 1pm [facility] Medical Records Department [address] [place] [address] Progress Note - Surgery 02/23/23 1639 MR#: [id number] Acct: [id number] Name: NISHAMINAJIAN Alexis Rep #:[id number] : 1965 57 From: Laura Kidd MD PCP: Dr. Clifford Estes MD Status:ADM I N Location: [place] [address] Subjective Subjective patient denies abdominal pain has been passing flatus and had a bowel movement Objective Data Objective Data Vital Signs: Vital Signs Temp Pulse Resp BP Pulse Ox O2 Del Method 98 F 83 18 124/76 H 99 Room Air 02/23/23 15:30 02/23/23 15:30 02/23/23 15:30 02/23/23 15:30 02/23/23 15:30 02/23/23 15:30 Oxygen Delivery Method Room Air Weight: 54.4 kg Body Mass Index (BMI) 21.2 Intake & Output: Intake and Output for Last 24 Hours 02/21/23 02/22/23 02/23/23 23:59 23:59 23:59 Intake Total 4429.09 / 4429.09 3495.00 / 3495.00 2310 / 2310 Output Total 2300 / 2300 3650 / 4050 1250 / 1250 Balance 2129.09 / 2129.09 -155.00 / -555.00 1060 / 1060 Lab / Micro Data Attestation: I reviewed the patient's lab results. Result Diagrams: 02/21/23 04:25 02/21/23 04:25 Labs: Laboratory Results - last 24 hr 02/20/23 16:39: Diff Path Review Reviewed Micro: Microbiology 02/20/23 18:55 Urine, Catheterized Urine Culture - Final Proteus mirabilis Radiography Diagnostic Testing: Radiology Impression Small Bowel X-Ray 02/22/23 13:15 IMPRESSION: Although transit time is abnormal at somewhere around 16.5 hours, the Gastrografin does make it into the colon. No demonstrated obstruction, findings are system with both small and large bowel ileus. Electronically Signed: Sebastián Marcial MD at 8:55 EDT , Physical Exam Const alert General Appearance: cooperative Neck supple GI GI Narrative: abdomen is soft and benign Assessment & Plan Assessment/Plan (1) Ileus: PLAN: see below PLAN: Plan patient with known ileus no bowel obstruction No surgical intervention required I am signing off this case, please re-consult general surgery if patient's status changes 02/23/23 1641 <Electronically signed by Laura Kidd MD> Cosigner Signature (if applicable): CC: ~ Signed [facility] Work Phone: 1(796) 299-885104-12-2023 Miscellaneous Notes* Telephone Encounter - Juan Daniel Finn RN - 02/23/2023 8:09 AM EDT Aurelio Prakash- phoned to let pcp know, patient was admitted to [facility] on 02-20-23 with ileus and is still an inpatient. [facility] Kidd [facility] February 22, 2023 12:53pm Note Date/Time February 22, 2023 12: 53pm [facility] Medical Records Department [address] [place] [address] Progress Note - Surgery 02/22/23 1251 MR#: [id number] Acct: [id number] Name: JIAN ALTAMIRANO Rep #:[id number] : 1965 57 From: Laura Kidd MD PCP: Dr. Clifford Estes MD Status:ADM I N [id number] Subjective Subjective patient's sister in the room, she states that patient is on a very specific bowel regimen and it has not been followed while has been hospitalized she states that patient has passed flatus and that is abdomen is much less disteneded Objective Data Objective Data Vital Signs: Vital Signs Temp Pulse Resp BP Pulse Ox O2 Del Method 97.3 F L 74 12 130/90 H 94 Room Air 02/22/23 08:02 02/22/23 08:02 02/22/23 08:02 02/22/23 08:02 02/22/23 11:03 02/22/23 11:03 Oxygen Delivery Method Room Air Weight: 54.4 kg Body Mass Index (BMI) 21.2 Intake & Output: Intake and Output for Last 24 Hours 02/20/23 02/21/23 02/22/23 23:59 23:59 23:59 Intake Total 1368.33 / 1368.33 4429.09 / 4429.09 2185 / 2185 Output Total 1500 / 1500 2300 / 2300 1250 / 1250 Balance -131.67 / -131.67 2129.09 / 2128.09 935 / 935 Lab / Micro Data Attestation: I reviewed the patient's lab results. Result Diagrams: 02/21/23 04:25 02/21/23 04:25 Micro: Microbiology 02/20/23 18:55 Urine, Catheterized Urine Culture - Final Proteus mirabilis Physical Exam Const alert Resp normal respiratory effort GI GI Narrative: abdomen is soft and benign Assessment & Plan Assessment/Plan (1) Ileus: PLAN: see below PLAN: Plan will obtain small bowel series with gastrografin - if all contrast goes through, can d/c NG tube and then d/c to home 02/22/23 1253 <Electronically signed by Laura Kidd MD> Cosigner Signature (if applicable): CC: ~ Signed [facility] Work Phone: 1(425) 224-221704-11-[address] Mercer [facility] February 22, 2023 11:00am Note Date/Time February 21, 2023 7:3 2pm [facility] Medical Records Department [address] [place] [address] Progress Note - Hospitalist 02/21/231930 MR#: [id number] Acct: [id number] Name: JIAN ALTAMIRANO Rep #:[id number] : 1965 57 From: Geo Mercer DO PCP: Dr. Clifford Estes MD Status:ADM I N [id number] Reason for Visit Reason for Visit: Diagnoses Ileus, unspecified (02/20/23) Subjective Subjective Patient was seen and examined today, he does not appear uncomfortable, he still has an NG tube in place, I talked with his sister who is in the room at the timemy examination also. Surgery is participating in his medical care at this time,it appears from her note that the patient may not need surgical intervention at this time. Objective Data Objective Data Vital Signs: Vital Signs Temp Pulse Resp BP Pulse Ox O2 Del Method 98.6 F 89 18 130/77 H 98 Room Air 02/21/23 16:53 02/21/23 16:53 02/21/23 16:53 02/21/23 16:53 02/21/23 16:53 02/21/23 16:53 Oxygen Delivery Method Room Air Weight: 54.4 kg Body Mass Index (BMI) 21.2 Intake & Output: Intake and Output for Last 24 Hours 02/19/23 02/20/23 02/21/23 23:59 23:59 23:59 Intake Total 1368.33 / 1368.33 3333.67 / 3333.67 Output Total 1500 / 1500 1100 / 1100 Balance -131.67 / -131.67 2233.67 / 2233.67 Lab / Micro Data Result Diagrams: 02/21/23 04:25 02/21/23 04:25 Labs: Laboratory Results - last 24 hr 02/20/23 16:39: Phosphorus 2.9, Magnesium 2.1 02/20/23 18:55: Urine Color Yellow, Urine Clarity Sl. Cloudy, Urine pH 8.0, Ur Specific [place] 1.010, Urine Protein 30 H, Urine Glucose (UA) Normal, Urine Ketones 50 H, Urine Occult Blood 25 H, Urine Nitrite Positive H, Urine BilirubinNegative, Urine Urobilinogen Normal, Ur Leukocyte Esterase 500 H, Urine RBC 0-5 SEEN, Urine WBC 10-25 SEEN, Ur Squamous Epith Cells 0-5 SEEN, Amorphous Sediment1+ PHOS, Urine Bacteria 1+, Urine Mucus 0 SEEN 02/21/23 04:25: WBC 6.5, RBC 4.26 L, Hgb 12.9 L, Hct 37.1 L, MCV 87.1, MCH 30.3,MCHC 34.8, RDW Std Deviation 40.9, RDW Coeff of Frieda 13.0, Plt Count 340, MPV 9.7, Immature Gran % (Auto) 0.200, Neut % (Auto) 57.3, Lymph % (Auto) 26.7, [place]% (Auto) 14.1 H, Eos % (Auto) 1.2, Baso % (Auto) 0.5, Absolute Neuts (auto) 3.7,Absolute Lymphs (auto) 1.74, Nucleated RBC % 0 02/21/23 04:25: Sodium 133 L, Potassium 3.8, Chloride 105, Carbon Dioxide 23.0, Anion Gap 5, BUN 10, Creatinine 0.63 L, Estim Creat Clear Calc 103.25, Est GFR (MDRD) Af Amer 169, Est GFR (MDRD) Non-Af 140, BUN/Creatinine Ratio 15.8, Glucose 99, Calcium 7.9 L, Total Bilirubin 0.70, AST 12 L, ALT 17, Alkaline Phosphatase 60, Total Protein 6.0 L, Albumin 2.8 L, Globulin 3.2, Albumin/Globulin Ratio 0.9 Micro: Microbiology 02/20/23 18:55 Urine, Catheterized Urine Culture - Preliminary Gram negative kennedy Radiography Diagnostic Testing: Radiology Impression KUB X-Ray 02/21/23 05:55 IMPRESSION: Stable ileus. Electronically Signed: Damian MoonDO at 5:47 EDT , Physical Exam Const alert, oriented x3 and no apparent distress General Appearance: cooperative, well kempt and well developed Orientation / Consciousness: awake, oriented to person, oriented to place and oriented to time HEENT normocephalic, head/scalp atraumatic and moist oral mucous membranes Eyes PERRL, EOMs intact bilaterally and conjunctivae normal Neck supple, no JVD, thyroid normal and no carotid bruits General: trachea midline Resp normal respiratory effort, no retractions, no use of accessory muscles and clearto auscultation bilaterally Auscultation: Negative for rales, rhonchi or wheezes Cardio regular rate, regular rhythm, S1 normal heart sound, S2 normal heart sound, no murmurs, no rub and no gallops GI soft to palpation and non-tender GI Narrative: Bowel sounds are diminished at this time Auscultation: hypoactive bowel sounds Extremity no clubbing, cyanosis or edema Skin no rashes or lesions noted General Skin Exam: no breakdown Neuro oriented x3, CN's II-XII intact bilaterally, no focal motor deficits and no sensory deficits noted Sensorium / Orientation: awake, alert, oriented to person, oriented to place andoriented to time Speech: speech normal Psych affect normal Assessment & Plan Assessment/Plan (1) Ileus: PLAN: Plan 1. Acute recurrent ileus-patient currently has an NG to suction, he is being seen by general surgery #2 acute cystitis associated with chronic indwelling Hannon catheter with bladderstones-patient will remain on his current antibiotic coverage #3 hyponatremia-continue to monitor sodium, IV fluids will be administered #4 chronic gastroparesis-complicates care, medical course, recovery, and prognosis #5 history of normal pressure hydrocephalus-patient ambulates with special canes, otherwise uses a wheelchair Total clinical time spent by myself addressing the patient's medical issues, reviewing all of his data, and collaborating with patient's care team: 37 minutes Charges/Coding Visit Charges Inpatient E&M: 82318 Subs Hosp L2 02/22/23 1100 <Electronically signed by Geo Mercer DO> Cosigner Signature (if applicable): CC: ~ Signed [facility] Work Phone: 1(376) 961-863804-11-[address] Oliva [facility] February 22, 2023 7:47am Note Date/Time February 22, 2023 7:4 7am [facility] Medical Records Department [address] [place] [address] Consultation - Urology 02/22/23 0742 MR#: [id number] Acct: [id number] Name: JIAN ALTAMIRANO Rep #:[id number] : 1965 57 From: Kevyn Oliva MD PCP: Dr. Clifford Estes MD Status:ADM I N Location: [place] [address] Assessment & Plan Assessment/Plan (1) Bladder stones: PLAN: 57-year-old male multiple medical problems he has chronic Hannon catheter in place he does have a stone in his bladder and also appears that may be a stone in the left ureter some mild left hydronephrosis. This is definitely chronic prior CAT scan that demonstrated both findings. Unfortunately because of his condition and state it would be physically impossible to get the stones out via a transurethral approach because I would not be able to get his legs in stirrups in order to get into the bladder and remove the stones and the stone inthe ureter. I think it be too dangerous to approach this with an open surgical approach given his bowel distention and bowel problems. So at this point I do not think I am able to offer the patient any intervention regarding the removal of the stone in the bladder and the ureter. Signing off call me with questions. HPI Consult Data Date of Consult: 02/22/23 HPI Narrative Reason for Consultation: Bladder stone possible ureteral calculi HPI Narrative: JIAN ALTAMIRANO, is a 57 male patient with multiple medical problems he has a chronic indwelling Hannon catheter he presents to the hospital multiple times with abdominal distention and possible bowel obstruction which typically is managed with NG decompression and time. CT scan was done that demonstrates stone within the bladder and also possible stone within the left ureter. Unfortunate this patient is a cachectic noninteractive male with his legs are very thin and cachectic and contorted together he has a Hannon catheter that is changed every month. He is followed by the [facility] urologist as an outpatient. I reviewed the CAT scan and his admission notes [facility] Medical History (Updated 02/22/23 @ 07:[address] Kevyn Oliva MD) Bladder diverticulum Bladder stones Catheter-associated urinary tract infection Chronic indwelling Hannon catheter Gastroparesis History of urinary retention Hydrocephalus Hypertension Hyponatremia Ileus Inguinal hernia Seizures Home Medications linaclotide 72 mcg capsule (Linzess) 290 mcg PO DAILY constipation 07/31/21 [History Last Taken 02/20/23] baclofen 5 mg tablet 5 mg PO TID spasms 07/21/22 [History Last Taken 02/20/23] Allergy/AdvReac Type Severity Reaction Status Date / Time Iodinated Contrast Media Allergy Anaphylaxis Verified 10/29/22 14:20 [Iodinated Contrast Media - IV Dye] nitrofurantoin AdvReac Upset Verified 10/29/22 14:20 Stomach Family History Father Heart disease Kidney stones Prostate disease Brother Kidney stones Other Cancer Peptic ulcer disease Surgical History S/P release of urethral stricture S/P SOFT SHOE DANCER shunt Social History household members: family Smoking Status: Never smoker alcohol intake: never substance use type: does not use Physical Exam Narrative Noninteractive male does not respond to questions has got an NG tube in place abdomen is slightly distended Hannon catheter is in place he had cachectic contorted legs together. Lab / Micro Data Result Diagrams: 02/21/23 04:25 02/21/23 04:25 Micro: Microbiology 02/20/23 18:55 Urine, Catheterized Urine Culture - Preliminary Gram negative kennedy Reviewed CT scan imaging 02/22/23 0747 <Electronically signed by Kevyn Oliva MD> Cosigner Signature (if applicable): CC: Dr. Nikki Celestin MD; Dr. Kevyn Oliva MD; Dr. Laura Kidd MD; Dr.William Tommy MD~ Signed [facility] Work Phone: 1(562) 919-969304-10-[address] Kidd [facility] February 21, 2023 7:56am Note Date/Time February 21, 2023 6:3 8am [facility] Medical Records Department [address] [place] [address] Consultation - Surgical 02/21/23 0638 MR#: [id number] Acct: [id number] Name: JIAN ALTAMIRANO Rep #:[id number] : 1965 57 From: Laura Kidd MD PCP: Dr. Clifford Estes MD Status:ADM I N Location: [place] [address] Assessment & Plan Assessment/Plan (1) Ileus: PLAN: see below PLAN: Plan patient has presented to hospital for multiple admissions for partial SBO/ileus these episodes have all resolved with NG tube decompression/IV hydration/bowel rest Patient has had no previous intraabdominal surgeries except has a SOFT SHOE DANCER shunt He has known slow peristalsis Suspect that this episode will also resolve without surgery Consider gastrografin SBFT and IV reglan HPI Consult Data Date of Consult: 02/21/23 HPI Narrative Reason for Consultation: abdominal pain HPI Narrative: I was asked by Dr. Nikki Celestin to see this patient for consultation for abdominal pain and abnormal CT scan. JIAN ALTAMIRANO, is a 57 M who presents with abdominal pain, nausea and emesis. He has had multiple admissions to the hospital for the same presentation. Findings on CT scan of ileus. He has had worsening symptoms of above for the past day. He may also have a UTI. He presents with low grade temperature elevations CT scan reveals air fluid levels of small bowel, reading by radiologist of "ileus" - patient has known slow peristalsis. [facility] Medical History Bladder diverticulum Bladder stones Catheter-associated urinary tract infection Chronic indwelling Hannon catheter Gastroparesis History of urinary retention Hydrocephalus Hypertension Hyponatremia Ileus Inguinal hernia Seizures Home Medications linaclotide 72 mcg capsule (Linzess) 290 mcg PO DAILY constipation 07/31/21 [History Last Taken 02/20/23] baclofen 5 mg tablet 5 mg PO TID spasms 07/21/22 [History Last Taken 02/20/23] Allergy/AdvReac Type Severity Reaction Status Date / Time Iodinated Contrast Media Allergy Anaphylaxis Verified 10/29/22 14:20 [Iodinated Contrast Media - IV Dye] nitrofurantoin AdvReac Upset Verified 10/29/22 14:20 Stomach Family History Father Heart disease Kidney stones Prostate disease Brother Kidney stones Other Cancer Peptic ulcer disease Surgical History S/P release of urethral stricture S/P SOFT SHOE DANCER shunt Social History household members: family Smoking Status: Never smoker alcohol intake: never substance use type: does not use ROS Constitutional Constitutional: Reports fatigue; Denies chills Eyes Eyes: Denies loss of central vision ENT HEENT: Denies epistaxis Cardiovascular Cardiovascular: Denies chest pain at rest Respiratory/Chest Respiratory/Chest: Denies shortness of breath at rest Gastrointestinal Gastrointestinal: Reports abdominal pain Genitourinary Genitourinary: Reports difficulty urinating Musculoskeletal Musculoskeletal: Reports muscle weakness Integumentary Integumentary: Denies jaundice Neurologic Neurologic: Denies loss of vision Hematologic/Lymphatic Hematologic/Lymphatic: Denies easy bleeding Physical Exam Const alert General Appearance: cooperative HEENT head/scalp atraumatic Neck supple Resp normal respiratory effort Effort and Inspection: able to speak in complete sentences GI GI Narrative: abdomen is soft and benign, slightly tympanitic Medical Records Data Attestation: I reviewed the patient's medical records Lab / Micro Data Attestation: I reviewed the patient's lab results. Result Diagrams: 02/21/23 04:25 02/21/23 04:25 Labs: Laboratory Results - last 24 hr 02/20/23 16:39: WBC 13.7 H, RBC 4.98, Hgb 14.7, Hct 42.8, MCV 85.9, MCH 29.5, MCHC 34.3, RDW Std Deviation 39.3, RDW Coeff of Frieda 12.6, Plt Count 414, MPV 9.5, Immature Gran % (Auto) 0.300, Neut % (Auto) 73.6 H, Lymph % (Auto) 12.4 L, [place] % (Auto) 13.0 H, Eos % (Auto) 0.5, Baso % (Auto) 0.2, Absolute Neuts (auto)10.1 H, Absolute Lymphs (auto) 1.69, Nucleated RBC % 0, Differential Comment SCANNED, Diff Path Review March02/20/23 16:39: Sodium 124 L, Potassium 3.7, Chloride 92 L, Carbon Dioxide 21.0,Anion Gap 11, BUN 18, Creatinine 0.78, Estim Creat Clear Calc 86.12, Est GFR (MDRD) Af Amer 132, Est GFR (MDRD) Non-Af 109, BUN/Creatinine Ratio 23.0 H, Glucose 106, Calcium 8.6, Total Bilirubin 0.80, AST 14 L, ALT 19, Alkaline Phosphatase 72, Total Protein 7.3, Albumin 3.5, Globulin 3.8, Albumin/Globulin Ratio 0.9, Lipase 71 L 02/20/23 16:39: Lactic Acid 1.0 02/20/23 16:39: Phosphorus 2.9, Magnesium 2.1 02/20/23 18:55: Urine Color Yellow, Urine Clarity Sl. Cloudy, Urine pH 8.0, Ur Specific [place] 1.010, Urine Protein 30 H, Urine Glucose (UA) Normal, Urine Ketones 50 H, Urine Occult Blood 25 H, Urine Nitrite Positive H, Urine BilirubinNegative, Urine Urobilinogen Normal, Ur Leukocyte Esterase 500 H, Urine RBC 0-5 SEEN, Urine WBC 10-25 SEEN, Ur Squamous Epith Cells 0-5 SEEN, Amorphous Sediment1+ PHOS, Urine Bacteria 1+, Urine Mucus 0 SEEN 02/21/23 04:25: WBC 6.5, RBC 4.26 L, Hgb 12.9 L, Hct 37.1 L, MCV 87.1, MCH 30.3,MCHC 34.8, RDW Std Deviation 40.9, RDW Coeff of Frieda 13.0, Plt Count 340, MPV 9.7, Immature Gran % (Auto) 0.200, Neut % (Auto) 57.3, Lymph % (Auto) 26.7, [place]% (Auto) 14.1 H, Eos % (Auto) 1.2, Baso % (Auto) 0.5, Absolute Neuts (auto) 3.7,Absolute Lymphs (auto) 1.74, Nucleated RBC % 0 02/21/23 04:25: Sodium 133 L, Potassium 3.8, Chloride 105, Carbon Dioxide 23.0, Anion Gap 5, BUN 10, Creatinine 0.63 L, Estim Creat Clear Calc 103.25, Est GFR (MDRD) Af Amer 169, Est GFR (MDRD) Non-Af 140, BUN/Creatinine Ratio 15.8, Glucose 99, Calcium 7.9 L, Total Bilirubin 0.70, AST 12 L, ALT 17, Alkaline Phosphatase 60, Total Protein 6.0 L, Albumin 2.8 L, Globulin 3.2, Albumin/Globulin Ratio 0.9 Radiology Impression Abdomen/Pelvis CT 02/20/23 16:21 IMPRESSION: Mild right hydronephrosis and hydroureter. Possible punctate distal ureterolith. Stable bladder stone and questionable large distal ureterolith. Ileus. Electronically Signed: Chris Romero MD at 18:18 EDT , KUB X-Ray 02/20/23 18:40 IMPRESSION: Ileus. Enteric tube now noted in the stomach. Electronically Signed: Chris Romero MD at 19:12 EDT , KUB X-Ray 02/21/23 05:55 IMPRESSION: Stable ileus. Electronically Signed: Damian Moon DO at 5:47 EDT , 02/21/23 0756 <Electronically signed by Laura Kidd MD> Cosigner Signature (if applicable): CC: Dr. Nikki Celestin MD; Dr. Laura Kidd MD; Dr. Clifford Estes MD~ Signed [facility] Work Phone: 1(414) 247-539104-09-[address] Albarran [facility] February 20, 2023 9:46pm Note Date/Time February 20, 2023 4:37 pm [facility] Medical Records Department [address] [place] [address] Emergency Department Summary 02/20/23 MR#: [id number] Acct: [id number] Name: JIAN ALTAMIRANO Rep #:[id number] : 1965 57 From: Abelardo Bar PCP: Dr. Clifford Estes MD Status:ADM I N Location: [place] AO049-9 HPI HPI - GI History of Present Illness Chief Complaint: Abd Pain Informant: patient and spouse/S.O. Narrative Narrative: Here with sister concerning recurrent bowel obstruction. History of multiple bowel obstructions in the past. Reports last time was a couple months ago diagnosed here, however transferred to for with suspected sigmoid volvulus. Per sister, sigmoid scope was performed and there was no volvulus, treated conservatively with improvement of symptoms. Prior to that was this past July evaluated by myself treated conservatively. History of SOFT SHOE DANCER shunt with surgery from shunt placement. Known inguinal hernia from CT back July withbladder involvement no bowel involvement. Last bowel movement yesterday. Sister states since yesterday increasing distention and pain. There is no nausea or vomiting. Patient tolerated p.o. intake is been decreased Hannon output and she reports this is a precursor to him developing a bowel obstruction. Chronic Ahnnon for retention followed by Dr. Virgen. Denies fevers. No surgical intervention for obstruction in the past. Reports no flatus today. Prior similar symptoms: Yes PFSH PFSH Medical History (Updated 02/20/23 @ 20:[address] Nikki Celestin MD) Bladder diverticulum Bladder stones Catheter-associated urinary tract infection Chronic indwelling Hannon catheter Gastroparesis History of urinary retention Hydrocephalus Hypertension Hyponatremia Ileus Inguinal hernia Seizures Home Medications linaclotide 72 mcg capsule (Linzess) 290 mcg PO DAILY constipation 07/31/21 [History Last Taken 02/20/23] baclofen 5 mg tablet 5 mg PO TID spasms 07/21/22 [History Last Taken 02/20/23] Allergy/AdvReac Type Severity Reaction Status Date / Time Iodinated Contrast Media Allergy Anaphylaxis Verified 10/29/22 14:20 [Iodinated Contrast Media - IV Dye] nitrofurantoin AdvReac Upset Verified 10/29/22 14:20 Stomach Family History Father Heart disease Kidney stones Prostate disease Brother Kidney stones Other Cancer Peptic ulcer disease Surgical History S/P release of urethral stricture S/P SOFT SHOE DANCER shunt Social History household members: family Smoking Status: Never smoker alcohol intake: never substance use type: does not use ROS ROS ED Constitutional Constitutional ED: Denies chills, fever(s) or sweats Eyes Eyes: Denies change in vision ENT ENT ED: Denies dysphagia or sore throat Cardiovascular Cardiovascular: Denies chest pain, leg edema, palpitations or racing heartbeat Respiratory/Chest Respiratory/Chest: Denies cough, dyspnea or dyspnea on exertion Gastrointestinal Gastrointestinal: Reports abdominal pain; Denies diarrhea, nausea or vomiting Genitourinary Genitourinary ED: Denies dysuria, hematuria or urinary frequency Musculoskeletal Musculoskeletal: Denies back pain, extremity pain or neck pain Integumentary Denies rash or wounds Neurologic Neurologic: Denies headache(s), paresthesias or weakness EXAM Physical Exam Const Vital Signs: 02/20/23 15:22 02/20/23 15:24 02/20/23 18:43 Temperature 99.0 F 99.0 F 98.9 F Temperature Source Temporal Temporal Temporal Pulse Rate 101 H 101 H 95 Respiratory Rate 18 18 18 Blood Pressure 137/103 H 137/103 H 134/90 H Blood Pressure Mean 114 114 104 Pulse Ox 96 Oxygen Delivery Method Room Air Positive well nourished and well developed General Appearance ED: well developed and NAD HEENT Reports dry mucous membranes normocephalic and atraumatic Mouth ED: Yes dry mucous membranes Mouth: dry mucous membranes Eyes PERRL, EOMs intact bilaterally and conjunctivae normal General Eye ED: Yes normal appearance of both eyes Neck no lymphadenopathy and supple General: Negative for tenderness Chest Wall Chest: Negative for tenderness Resp normal respiratory effort and normal air movement Effort and Inspection: symmetric chest movement; Negative for respiratory distress Cardio regular rate, regular rhythm and no murmurs Peripheral Pulses: pulses 2+ throughout GI GI Narrative: Abdominal distention scant bowel sounds, no guarding or rebound. 2 healed horizontal right side abdominal scars reported from SOFT SHOE DANCER shunt placement Palpation: Negative for guarding or rebound tenderness present Back/Spine no CVA tenderness and no thoracic nor lumbar tenderness Extremity normal to inspection General Extremety ED: Negative for edema or tenderness General Extremity: Negative for edema Neuro oriented x3 and no sensory deficits noted Sensorium / Orientation: awake and alert Skin no rashes or lesions noted and no wounds MDM MDM MDM Narrative Medical decision making narrative: Interventions / MDM: Differential diagnosis: Small bowel obstruction, abdominal pain Diagnosis considered but do not suspect: N/A My EKG interpretation: N/A Imaging independently reviewed and interpreted by myself: CT abdomen pelvis: Proximal small bowel distention with air-fluid levels along with mild right hydro-, calcification in the bladder with Hannon catheter. Noted bladder herniation left inguinal canal as previous. Per radiology reporting ileus with questionable distal ureteral stone. External documents reviewed: N/A Test considered but not ordered:N/A ED course: Patient distended abdomen scant bowel sounds history of similar with bowel obstructions. Work-up initial white count 3.7 then so 124, there is been similar levels previously, currently not confused without any vomiting. Creatinine normal, lactic acid normal. CT scan per radiology air-fluid levels reporting ileus. Reported right hydro question of distal stone. Added urine and culture. Re-evaluation: 1900: stable, 300 cc output, improved distention. Nontoxic. I spoke with on-call surgeon Dr. Kidd, with reported ileus improved with conservative therapy previously she request discussing with medicine for admission. Spoke with Dr. Celestin for admission. Urine did report signs of infection and possible colonization culture sent. Will do cefepime which is sensitive as Rocephin was resistant. Disposition discussed with patient/family/significant other: Patient Case discussed with consulting clinician: General surgeon Dr. Kidd, hospitalist Dr. Celestin Lab Data Attestation: I reviewed the patient's lab results. Labs: Laboratory Results - last 24 hr 02/20/23 02/20/23 02/20/23 16:39 16:39 16:39 WBC 13.7 H RBC 4.98 Hgb 14.7 Hct 42.8 MCV 85.9 MCH 29.5 MCHC 34.3 RDW Std Deviation 39.3 RDW Coeff of Frieda 12.6 Plt Count 414 MPV 9.5 Immature Gran % (Auto) 0.300 Neut % (Auto) 73.6 H Lymph % (Auto) 12.4 L [place] % (Auto) 13.0 H Eos % (Auto) 0.5 Baso % (Auto) 0.2 Absolute Neuts (auto) 10.1 H Absolute Lymphs (auto) 1.69 Nucleated RBC % 0 Differential Comment SCANNED Diff Path Review May foll Sodium 124 L Potassium 3.7 Chloride 92 L Carbon Dioxide 21.0 Anion Gap 11 BUN 18 Creatinine 0.78 Estim Creat Clear Calc 86.12 Est GFR (MDRD) Af Amer 132 Est GFR (MDRD) Non-Af 109 BUN/Creatinine Ratio 23.0 H Glucose 106 Lactic Acid 1.0 Calcium 8.6 Phosphorus Magnesium Total Bilirubin 0.80 AST 14 L ALT 19 Alkaline Phosphatase 72 Total Protein 7.3 Albumin 3.5 Globulin 3.8 Albumin/Globulin Ratio 0.9 Lipase 71 L Urine Color Urine Clarity Urine pH Ur Specific [place] Urine Protein Urine Glucose (UA) Urine Ketones Urine Occult Blood Urine Nitrite Urine Bilirubin Urine Urobilinogen Ur Leukocyte Esterase Urine RBC Urine WBC Ur Squamous Epith Cells Amorphous Sediment Urine Bacteria Urine Mucus 02/20/23 02/20/23 16:39 18:55 WBC RBC Hgb Hct MCV MCH MCHC RDW Std Deviation RDW Coeff of Frieda Plt Count MPV Immature Gran % (Auto) Neut % (Auto) Lymph % (Auto) [place] % (Auto) Eos % (Auto) Baso % (Auto) Absolute Neuts (auto) Absolute Lymphs (auto) Nucleated RBC % Differential Comment Diff Path Review Sodium Potassium Chloride Carbon Dioxide Anion Gap BUN Creatinine Estim Creat Clear Calc Est GFR (MDRD) Af Amer Est GFR (MDRD) Non-Af BUN/Creatinine Ratio Glucose Lactic Acid Calcium Phosphorus 2.9 Magnesium 2.1 Total Bilirubin AST ALT Alkaline Phosphatase Total Protein Albumin Globulin Albumin/Globulin Ratio Lipase Urine Color Yellow Urine Clarity Sl. Cloudy Urine pH 8.0 Ur Specific [place] 1.010 Urine Protein 30 H Urine Glucose (UA) Normal Urine Ketones 50 H Urine Occult Blood 25 H Urine Nitrite Positive H Urine Bilirubin Negative Urine Urobilinogen Normal Ur Leukocyte Esterase 500 H Urine RBC 0-5 SEEN Urine WBC 10-25 SEEN Ur Squamous Epith Cells 0-5 SEEN Amorphous Sediment 1+ PHOS Urine Bacteria 1+ Urine Mucus 0 SEEN Radiography Diagnostic Testing: Clinical Impression(s) from Imaging Studies Abdomen/Pelvis CT 02/20/23 16:21 IMPRESSION: Mild right hydronephrosis and hydroureter. Possible punctate distal ureterolith. Stable bladder stone and questionable large distal ureterolith. Ileus. Electronically Signed: Chris Romero MD at 18:18 EDT , KUB X-Ray 02/20/23 18:40 IMPRESSION: Ileus. Enteric tube now noted in the stomach. Electronically Signed: Chris Romero MD at 19:12 EDT , Discharge Plan Dx/Rx/DC Orders Clinical Impression: Ileus, Hyponatremia, Abdominal distension, Normal pressure hydrocephalus, SOFT SHOE DANCER (ventriculoperitoneal) shunt status, Chronic indwelling Hannon catheter, Kidney stone on right side, UTI (urinary tract infection) Disposition Disposition: Acute Care Hospital [facility] Discharge Date/Time: 02/20/23 20:13 What to do if you have Problems For any increased pain, shortness of breath, bleeding, nausea or vomiting, chestpain, or any unexpected problems, contact your Primary Care Provider. Call [facility] ([phone]) or report to the closest Emergency Room. Call 911 if necessary. 02/20/232145 <Electronically signed by Abelardo Bar> Cosigner Signature (if applicable): CC: Dr. Clifford Estes MD ~ Signed [facility] Work Phone: 1([phone]) 238-827104-09-2023 History and physical note Author Dr. Celestin [facility] February 20, 2023 8:38pm Note Date/Time February 20, 2023 7:51 pm [facility] Medical Records Department [address] [place] [address] History & Physical Exam 02/20/23 1950 MR#: [id number] Acct: [id number] Name: JIAN ALTAMIRANO Rep #:[id number] : 1965 57 From: Nikki Celestin MD PCP: Dr. Clifford Estes MD Status:ADM I N Location: [place] [id number] [facility] - General General Date of Admission: 02/20/23 Date of Service: 02/20/23 Chief Complaint: Abdominal pain, distention, decreased UOP, foul smelling urine. HPI Narrative The patient is a 57 y/o M w/ PMHx: Chronic Hyponatremia (130 usual average but vacillates between low 120s-mid 130s), HTN, Hx Seizure disorder, Gastroparesis, Neurogenic bladder with chronic indwelling hannon catheter, NPH/Hydrocephalus/Functional paraplegia with wheelchair bound status s/p SOFT SHOE DANCER shunt placement, Hx prior SBO who presents to the [facility] ED on 02/20/23 with history of 12- 24 hours of progressively worsening abdominal distention, abdominal discomfort rated moderate 4-6 out of 10 in severity, decreased oral intake, decreased urine output and lack of flatus with last bowel movement greater than 24 hours prior with family concern for possible recurrent bowel obstruction and possible UTI with strong smelling urine reported as well but no fevers or chillsprompting ED evaluation. Work-up in the ED included T99, heart rate 101, BP 137/103, respiratory rate 18, 96% on room air, CBC with WBC 13.7, hemoglobin 14.7, platelet 414 with left shift, CMP with sodium 124, chloride 92, lactic acid 1.0, unremarkable hepatic profile, lipase 71, urinalysis concerning for possible UTI although patient would certainly could be chronically colonized, urine culture pending per ED, CT abdomen pelvis with mild right hydronephrosis and hydroureter, possible punctate distal ureterolith, stable bladder stone and questionable large distal ureterolith, ileus with air-fluid levels noted in the small bowel, colon distended with multiple air-fluid levels with no bowel wall thickening or pneumatosis, follow-up KUB following NG tube placement with evidence of ileus with enteric tube in the stomach. In the ED patient ministered 1 L normal saline as well as cefepime 1 g IV x1. [facility] Medical History (Updated 02/20/23 @ 20:[address] Nikki Celestin MD) Bladder diverticulum Bladder stones Catheter-associated urinary tract infection Chronic indwelling Hannon catheter Gastroparesis History of urinary retention Hydrocephalus Hypertension Hyponatremia Ileus Inguinal hernia Seizures Home Medications linaclotide 72 mcg capsule (Linzess) 145 mcg PO DAILY constipation 07/31/21 [History Last Taken 07/20/22] baclofen 5 mg tablet 5 mg PO TID spasms 07/21/22 [History Last Taken 07/20/22] Allergy/AdvReac Type Severity Reaction Status Date / Time Iodinated Contrast Media Allergy Anaphylaxis Verified 10/29/22 14:20 [Iodinated Contrast Media - IV Dye] nitrofurantoin AdvReac Upset Verified 10/29/22 14:20 Stomach Family History Father Heart disease Kidney stones Prostate disease Brother Kidney stones Other Cancer Peptic ulcer disease Surgical History S/P release of urethral stricture S/P SOFT SHOE DANCER shunt Social History household members: family Smoking Status: Never smoker alcohol intake: never substance use type: does not use ROS ROS Narrative Admission Review of Systems: CONSTITUTIONAL: No weight loss, fever, chills, + weakness or fatigue. HEENT: Eyes: No visual loss, blurred vision, double vision or yellow sclerae. Ears, Nose, Throat: No hearing loss, sneezing, congestion, runny nose or sore throat. SKIN: No rash or itching, lesions, wounds. CARDIOVASCULAR: No chest pain, chest pressure or chest discomfort, palpitations,edema, orthopnea, syncopal events. RESPIRATORY: No shortness of breath, cough or sputum, wheezing, hemoptysis. GASTROINTESTINAL: + anorexia, abdominal discomfort and distention, No reported nausea, vomiting, melena, BRBPR. GENITOURINARY: + Neurogenic bladder with chronic indwelling Hannon catheter, reporting foul-smelling urine. Does have a history of urinary retention. NEUROLOGICAL: + History neurogenic bladder, NPH, hydrocephalus with functional paraplegia with wheelchair bound status, seizure disorder, No headache, dizziness, syncope, change in bowel or bladder control. MUSCULOSKELETAL: + muscle, back pain, joint pain or stiffness. HEMATOLOGIC: No anemia, bleeding or bruising. LYMPHATICS: No enlarged nodes. No history of splenectomy. PSYCHIATRIC: No history of depression or anxiety. ENDOCRINOLOGIC: No reports of sweating, cold or heat intolerance. No polyuria orpolydipsia. ALLERGIES: + History of anaphylaxis. Vital Signs Vital Signs Vital Signs: 02/20/23 15:22 02/20/23 15:24 02/20/23 18:43 Temperature 99.0 F 99.0 F 98.9 F Temperature Source Temporal Temporal Temporal Pulse Rate 101 H 101 H 95 Respiratory Rate 18 18 18 Blood Pressure 137/103 H 137/103 H 134/90 H Blood Pressure Mean 114 114 104 Pulse Ox 96 Oxygen Delivery Method Room Air Weight Weight: 139 lb 15.896 oz Body Mass Index (BMI) 24.7 Physical Exam Narrative Physical Examination: General: Awake, alert, oriented to self, place and recent events, remains cooperative, seated upright in the ED bed, notes feeling improved status post NGtube placement with approximately one quarter of the canister filled already Skin: Normal color, normal turgor, no icterus, no cyanosis. HEENT: AT/NC, EOMI, PERRLA, dry MM, poor dentition, no carotid bruits or JVD noted. Lungs: Mildly diminished, greater bases, proper effort, no rales, ronchi or wheezing. Heart: Currently regular rate and rhythm; no gallop, rub audible. Abdomen: Soft, still some discomfort to general palpation but no rebound or guarding and no marked distention with patient reporting that this has improved status post NG tube placement, NG tube in place with at least one quarter of thecanister filled, hypoactive bowel sounds, no obvious HSM. Extremities: No cyanosis, clubbing, or edema, evidence of lower extremity musclewasting. Neurological: Patient awake, alert, oriented as noted, cognitive function suspect baseline intact intact; pupils equally reactive to light and accommodation, cranial nerves II-XII grossly normal, moving extremities but patient does have significant distal muscle wasting and uses a wheelchair at baseline. Psychiatric: Affect appears fatigued, no acute evidence of depressive or anxietyfeelings. Results Lab / Micro Data Result Diagrams: 02/20/23 16:39 02/20/23 16:39 Labs: Laboratory Results - last 24 hr 02/20/23 16:39: WBC 13.7 H, RBC 4.98, Hgb 14.7, Hct 42.8, MCV 85.9, MCH 29.5, MCHC 34.3, RDW Std Deviation 39.3, RDW Coeff of Frieda 12.6, Plt Count 414, MPV 9.5, Immature Gran % (Auto) 0.300, Neut % (Auto) 73.6 H, Lymph % (Auto) 12.4 L, [place] % (Auto) 13.0 H, Eos % (Auto) 0.5, Baso % (Auto) 0.2, Absolute Neuts (auto)10.1 H, Absolute Lymphs (auto) 1.69, Nucleated RBC % 0, Differential Comment SCANNED, Diff Path Review March02/20/23 16:39: Sodium 124 L, Potassium 3.7, Chloride 92 L, Carbon Dioxide 21.0,Anion Gap 11, BUN 18, Creatinine 0.78, Estim Creat Clear Calc 86.12, Est GFR (MDRD) Af Amer 132, Est GFR (MDRD) Non-Af 109, BUN/Creatinine Ratio 23.0 H, Glucose 106, Calcium 8.6, Total Bilirubin 0.80, AST 14 L, ALT 19, Alkaline Phosphatase 72, Total Protein 7.3, Albumin 3.5, Globulin 3.8, Albumin/Globulin Ratio 0.9, Lipase 71 L 02/20/23 16:39: Lactic Acid 1.0 02/20/23 18:55: Urine Color Yellow, Urine Clarity Sl. Cloudy, Urine pH 8.0, Ur Specific [place] 1.010, Urine Protein 30 H, Urine Glucose (UA) Normal, Urine Ketones 50 H, Urine Occult Blood 25 H, Urine Nitrite Positive H, Urine BilirubinNegative, Urine Urobilinogen Normal, Ur Leukocyte Esterase 500 H, Urine RBC 0-5 SEEN, Urine WBC 10-25 SEEN, Ur Squamous Epith Cells 0-5 SEEN, Amorphous Sediment1+ PHOS, Urine Bacteria 1+, Urine Mucus 0 SEEN Radiology Impression Abdomen/Pelvis CT 02/20/23 16:21 IMPRESSION: Mild right hydronephrosis and hydroureter. Possible punctate distal ureterolith. Stable bladder stone and questionable large distal ureterolith. Ileus. Electronically Signed: Chris Romero MD at 18:18 EDT Reading Location ID and State: [address] [place] [address] , Service support , KUB X-Ray 02/20/23 18:40 IMPRESSION: Ileus. Enteric tube now noted in the stomach. 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 ED on 02/20/23 with history of 12- 24 hours of progressively worsening abdominal distention, abdominal discomfort rated moderate 4-6 out of 10 in severity, decreased oral intake, decreased urine output and lack of flatus with last bowel movement greaterthan 24 hours prior with family concern for possible recurrent bowel obstructionand possible UTI with strong smelling urine reported as well but no fevers or chills prompting ED evaluation. #1. Abdominal pain, distention with concern for adynamic ileus versus possible early SBO: Will admit to medical surgical floor, maintain on IVFs, continue NGT to suction, strict I&Os, IV pain/anti-emetics PRN, serial KUB as needed to montior bowel function, PPI IV, maintain NPO on bowel rest. General surgery Dr. Kidd consulted and will evaluate in AM. #2. Acute Complicated Urinary Tract Infection associated with Chronic Indwelling Hannon Catheter with Neurogenic bladder w/ mild right hydronephrosis and hydroureter, possible punctate distal ureterolith, stable bladder stone and questionable large distal ureterolith: UA upon ED evaluation remarkable and given decreased UOP, strong smelling per family will opt to initiate therapy butcertainly does have some component of chronic colonization, pending UCx, continue IVFs, monitor I/Os, continue IV cefepime w/ transition as able pending sensitivities and speciation. Will have catheter changed. Dr. Oliva will be consulted in AM. #3. Acute on Chronic Hyponatremia: Admission Na 124, baseline does appear mid 120s-low 130s, likely worsened by recent decreased intake given #1 and #2, will continue to hydrate and repeat CMP in AM. #4. NPH, Hydrocephalus, Chronic wheelchair status, functional paraplegia, chartreported seizure history: s/p SOFT SHOE DANCER shunt, encourage continued follow-up with his Neurologist/Neurosurgery, fall precautions, frequent positional changes, barriercare, despite seizure history reported no usage of AED. Holding chronic baclofen, will change to low dose IV ativan to prevent withdrawal component. #5. Gastroaparesis: Chronic issues, not on any reglan or medication, currently NPO status but given history could start low dose scheduled IV if necessary. #6. DVT prophylaxis: Lovenox. #7. CODE status: Patient does not have healthcare power of director of corporate responsibility nor living will set up he notes that his sister present would be his decision maker likely. Discussed CODE status at length including difference between FULL code, DNR-CCAand DNR-CC status. Following discussions about the differences in these status and following discussions he states he is really not sure but amenable to keeping his status is full code and will think about it further and relate to staff if there is any change. Advanced Care Planning Face to Face Time: 16 minutes. Admission Evaluation Time spent evaluating chart, patient history, patient evaluation, care planning and discussion with specialists: 75 minutes. Charges/Coding Visit Charges Inpatient E&M: 13062 Init Hosp L3 Procedures Hospitalists Procedures: 18780 Advncd Care Plan 30 Min 02/20/232037 <Electronically signed by Nikki Celestin MD> Cosigner Signature (if applicable): CC: Dr. Nikki Celestin MD; Dr. Clifford Estes MD~ Signed [facility] Work Phone: [phone]) 934-926004-06-2023 Miscellaneous Notes* Telephone Encounter - Kishor Briseno - 02/17/2023 10:54 AM EDT Patient's request for medication is as follows: Requested Prescriptions Pending Prescriptions Disp Refills linaCLOtide (LINZESS) 290 mcg capsule 30 capsule 3 Sig: Take 1 capsule by mouth DAILY (6 AM). Please send this med to [facility] pharmacy in [place], [place] on [address] [facility]. documented in this encounterCleveland [id number] Miscellaneous Notes* Telephone Encounter - Kaylee Salguero LPN - 02/16/2023 12:27 PM EDT Completed and faxed. * Telephone Encounter - Rich Guajardo LPN - 02/16/2023 10:22 AM EDT Type of form: Home Health Care Orders Form received via fax When form is completed, Fax form to [phone] Form has been forwarded to Physician Mailbox: Dr. Tommy Guajardo LPN documented in this encounterSalem [facility]03-31-2023 Miscellaneous Notes* Telephone Encounter - Kaylee Salguero LPN - 02/11/2023 4:44 PM EDT Signed and faxed as requested. * Telephone Encounter - Rich Guajardo LPN - 02/11/2023 3:16 PM EDT Type of form: Home Health Care Orders Form received via fax When form is completed, Fax form to [phone] Form has been forwarded to Physician Mailbox: Dr. Tommy Guajardo LPN documented in this encounterSalem City Hospital03-31-2023 Miscellaneous Notes* Telephone Encounter - Daniela Nelson RN - 02/11/2023 12:20 PM EDT Moriah calling from [facility] to report plan of care for patient and SN will visit patient 1 time a monthfor a month and 1 times a week for 2 weeks. SN will work with patient on hannon placement, disease management, and medication education. Moriah reports no call back needed if provider agrees with POC. Daniela Nelson RN documented in this encounterSalem City Hospital03-17-2023 Miscellaneous Notes* Telephone Encounter - Kaylee Salguero LPN - 01/28/2023 12:44 PM EDT Notified sister Darrion and verbalizes understanding. * Telephone Encounter - Clifford Estes MD - 01/28/2023 12:14 PM EDT Sodium has dropped again. I think we discussed before that they pushed plain water. Change to something like gatorade etc. Recheck bmp in one week documented in this encounterSalem City Hospital02-06-2023 Miscellaneous Notes* Telephone Encounter - Stephanie Velez LPN - 12/20/2022 10:28 AM EST Nhi digital product manager for [facility] [employer] calling to let you know pt was d/c from [facility] on 12-15-22. Pt had a large bowel blockage. (FYI pt was sent there because there was no beds at [facility] per Nhi). Stephanie Velez LPN documented in this encounterSalem City Hospital02-03-2023 Miscellaneous Notes* Telephone Encounter - Melodie Kim RN - 12/17/2022 1:05 PM EST Sallie at [facility] notified by detailed VM on her identified line. Melodie Kim RN * Telephone Encounter - Juan Daniel Finn RN - 12/17/2022 9:38 AM EST Sallie- [facility] asking for approval for POC to see patient 2 x month for 2 months for hannon catheter change and recertification. Please phone Sallie with verbal. documented in this encounterSalem City Hospital02-02-2023 Miscellaneous Notes* Telephone Encounter - Kishor [...] her brother'scurrent update now. documented in this encounterSalem City Hospital02-01-2023 NoteSend Summary: Discharge Summary Providers: Provider [...] Care - Resumed Vital Signs: T PRBPMAPSpO2 [id number]/8692% Date/Time12/15 5:542/1 5:542/1 5:542/1 5:542/1 5:54 Range(35.9C - 37.1C ) (72 - 102 ) (16 - 18 ) (117 - 148 )/ (77 - 88 ) (92% - 96% ) Highest temp of 37.1 C was recorded at 12/14 9:24 Date: Weight/Scale Type:Height: 11-Dec-2022 16:1954.4 kg / wnn277.9 cm Physical Exam: Constitutional: Pleasant, calm and cooperative resting in bed, no apparent distress Pulmonary: Lungs CTAB, chest expansion symmetric, unlabored on room air Cardiac: RRR Abdominal: Soft, round, nontender, and nondistended : Voiding via chronic Hannon catheter Extremities: ROM intact, Pato Psychological: Appropriate for discharge Discharge instructions reviewed. Total time with patient today was 30 minutes, all of which was spent counseling patient on resuming home bowel regimen and contacting Dr. Chidi Mitchell office with any further questions or concerns. Hospital Course: Jian Altamirano is a 57 year old Male with a history of congenital hydrocephalus s/p remote SOFT SHOE DANCER shunt (revision at 19yo), bowel dysmotility, neurogenic [...] none Home Care Certification: Skilled Disciplines Ordered: RN/POWERHOUSE OILER, for monthly Hannon catheter change Home Care Services: Home Care Skilled Service: hannon catheter Follow Up Appointments: Follow-Up Appointment 01: [...] discharge: Full Code Electronic Signatures: Long Saldaña (SENIOR BUSINESS MANAGER-TOYS AND GAMES HAND FINISHER) (Signed 15-Dec-2022 13:32) Authored: Send Summary, Summary Content, Ongoing Care, DNR Status, Note Completion Last Updated: 15-Dec-2022 13:32 by Long Saldaña (SENIOR BUSINESS MANAGER-TOYS AND GAMES HAND FINISHER)[facility]01-31-2023 Miscellaneous Notes* Telephone Encounter - Daniela Nelson RN - 12/14/2022 10:15 AM EST Nhi mendoza with [facility] calls to let provider know that patient was transferred to [facility] instead of [facility]. Not certain as to why but they are discussing discharge planning at this time. Daniela Nelson RN documented in this encounterSalem City Hospital01-28-2023 NoteClinical Note - Pharmacy v2: Education: Document TopicMedication Education MedicationMeds to Beds: Patient accepts Meds to Beds service at discharge, please send prescriptions to [facility]. Sources used to confirm home medication list: Family interview with sister Darrion Barrow (patient's lawn care worker), Continuity of Care Document [facility] 12/11/2022, fill history Additional comments: Patient's sister reports he takes baclofen at 6 AM, 2 PM, and 10 PM daily Medication reconciliation complete Please reach out via [employer] for questions Wesley Mueller PharmD PGY-1 [facility] Is This Intervention Medication Reconciliation Relatedyes Time [id number] minutes Additional NotesHome Medications Review Status for [...] Contrast Reaction: Anaphylaxis Electronic Signatures: Wesley Mueller ([facility]) (Signed 11-Dec-2022 14:53) Authored: Stuart Allergy Yobani Romero ([facility]) (Signed 11-Dec-2022 18:26) Co-Signer: Stuart Allergy Last Updated: 11-Dec-2022 18:26 by Yobani Romero ([facility]01-28-2023 NoteHistory of Present Illness: HPI: JIAN ALTAMIRANO is a 57 year old Male with Hx congenital hydrocephalus s/p remote SOFT SHOE DANCER shunt (revision at 19yo), bowel dysmotility, neurogenic [...] CT obtained at OSH was read as "sigmoid volvulus"; however, in house review showed large stool burden, diffuse dilation, possible rectosigmoid narrowing due to compression from stool. Prior colonoscopy two years ago reported to be tortuous but otherwise unremarkable. PMH: congenital hydrocephalus, gastroparesis, HTN, hyponatremia, seizures, prior small bowel obstructions PSH: remote SOFT SHOE DANCER shunt Allergies: None FHX: noncontributory Meds: baclofen [...] are negative Objective: Objective Information: T PRBPMAPSpO2 [id number]/9095% Date/Time12/11 9: 12: 12: 12: 12:16 Range(36.8C [...] Gastrointestinal: soft, minimally distended, nontender Genitourinary: Chronic hannon in place Musculoskeletal: ESQUIVEL Extremities: warm and [...] Recent Lab Results: Results: CBC: 12/11/2022 09:28 \\ Hgb / \\ 12.9 L / WBC Plt 8.0 358 / Hct \\ / 36.4 L \\ RBC: 4.39 L MCV: 83 Neutrophil %: 62.2 RFP: 12/11/2022 09:28 NA+ Cl- BUN / 127 L 98 13 / Glucose 106 H K+ HCO3- Creat \\ 4.0 24 0.70 \\ Calcium : 8.1 LAnion Gap : 9 L Albumin : 3.4 Phos : 2.9 Coagulation: 12/11/2022 09:28 PT / 12.4 / -------< INR < 1.1 PTT\\ 29 \\ Assessment and Plan: Assessment: JEANJIAN KOENIG is a 57 year old Male with Hx congenital hydrocephalus s/p remote SOFT SHOE DANCER shunt (revision at 19yo), bowel dysmotility, neurogenic bladder, HTN, HLD, seizures who presented to OSH with abdominal pain c/f significant constipation vs rectosigmoid narrowing. Plan: -2x tap water enemas now to (more content not included)...[facility]01-28-[address] Schaffer [facility] December 11, 2022 5:25am Note Date/Time December 10, 2022 1 0:30pm [facility] Medical Records Department [address] [place] [address] Emergency Department Summary 12/10/22 MR#: [id number] Acct: [id number] Name: JIAN ALTAMIRANO Rep #:[id number] : 1965 57 From: Josiah Schaffer MD PCP: Dr. Clifford Estes MD Status:REG E R Location: ED HPI HPI - GI History of Present Illness Chief Complaint: Nausea/Vomiting Narrative Narrative: 57-year-old male past medical history of gastroparesis, indwelling Hannon catheter, previous ileus and bowel obstructions, bladder diverticulum presents with his sister who is a retired RN with concern for bowel obstruction. He is well-known to the emergency department for frequent visits for nausea and vomiting, and abdominal pain. She states that she thinks his last bowel obstruction was in August or September of last year but is unsure. He had a large bowel movement this morning without any blood in it. This evening, he vomited his stomach contents. This is usually a sign that he is working on obstruction. She denies that he has had any fever or other symptoms. No blood in his emesis. [facility] Medical History Bladder diverticulum Bladder diverticulum Bladder stones Catheter-associated urinary tract infection Chronic indwelling Hannon catheter Fever Gastric paresis Gastroparesis History of urinary retention Hydrocephalus Hypertension Hyponatremia Ileus Inguinal hernia Kidney stones Seizures Home Medications linaclotide 72 mcg capsule (Linzess) 145 mcg PO DAILY constipation 07/31/21 [History Last Taken 07/20/22] baclofen 5 mg tablet 5 mg PO TID spasms 07/21/22 [History Last Taken 07/20/22] cephalexin 500 mg capsule 500 mg PO Q6 #28 caps 10/29/22 [Rx Last Taken Unknown] sulfamethoxazole 800 mg-trimethoprim 160 mg tablet (Bactrim DS) 1 tab PO BID 7 days #14 tabs 11/04/22 [Rx Last Taken Unknown] Allergy/AdvReac Type Severity Reaction Status Date / Time Iodinated Contrast Media Allergy Anaphylaxis Verified 10/29/22 14:20 [Iodinated Contrast Media - IV Dye] nitrofurantoin AdvReac Upset Verified 10/29/22 14:20 Stomach Family History Father Heart disease Kidney stones Prostate disease Brother Kidney stones Other Cancer Peptic ulcer disease Surgical History S/P release of urethral stricture S/P SOFT SHOE DANCER shunt Social History household members: family Smoking Status: Never smoker alcohol intake: never substance use type: does not use ROS ROS ED ROS Narrative Constitutional: No fever, no chills. HEENT: No sore throat. No neck pain. No loss of vision. No rhinorrhea. Cardiovascular: No chest pain. No palpitations. No pedal edema. Respiratory: No cough, no shortness of breath. Abdominal: No abdominal pain. Positive nausea. 1 episode of nonbloody vomiting. Genitourinary: No dysuria. No hematuria. Musculoskeletal: No myalgias. No arthralgias. Neurologic: No headaches. No dizziness. No lightheadedness. Skin: No rash. No change in color. Psychiatric: No depression. No anxiety. EXAM Physical Exam Narrative Exam Narrative: Afebrile. Vital signs noted. HEENT: Normocephalic. Atraumatic. PERRL, EOMI. Neck soft and supple. No pointtenderness or step off. Cardiovascular: Regular rate and rhythm with intermittent tachycardia. No murmurs, rubs, or gallops appreciated. Respiratory: No tachypnea. Lungs clear to auscultation bilaterally. Gastrointestinal: Abdomen soft, mild diffuse tenderness with mild to moderate distention with decreased bowel sounds. No rebound or guarding. Neurological: Awake. Alert. Nonfocal, nonlateralizing. Skin: No rash. Normal color. No pallor. Musculoskeletal: No pedal edema. Full range of motion extremities. Const Vital Signs: 12/10/22 22:14 12/11/22 01:46 12/11/22 03:48 Temperature 97.5 F L Temperature Source Temporal Pulse Rate 101 H 92 Respiratory Rate 16 18 16 Blood Pressure 160/94 H 147/91 H Blood Pressure Mean 116 109 Pulse Ox 98 94 Oxygen Delivery Method Room Air Room Air Room Air MDM MDM MDM Narrative Medical decision making narrative: I reviewed his prior ED work-ups. He had a bowel obstruction in September of last year. CT will be obtained without contrast because he has anaphylaxis to IV contrast. He is not given p.o. contrast secondary to his vomiting and concern for aspiration. He will be given Zofran and a bolus of IV fluids and his laboratory work will be checked. I am not as concerned for dehydration as he has only had 1 episode of vomiting today. I reviewed the patient's laboratory work. He has slightly elevated white count of 12.1, but almost chronic leukocytosis. Hemoglobin normal at 14.6, [id number]. Platelet count of 425. He is hyponatremic with a sodium of 129 with chloride 95. Glucose slightly elevated at 146 with a normal anion gap of 11. BUN of 16 and normal creatinine of 0.76. Lipase normal at 95. I in the pendantly reviewed the patient's CT scan. There is evidence of dilatedstomach, and dilated small bowel, all the way down to the colon. In review of the radiology CT report, they confirm suspicion for sigmoid volvulus. I discussed the patient with the radiologist over the telephone, and he states that there are 2 areas of concern in the Sigbunny Linder: That appear "pinched" with engorged blood vessels. Upon repeat examination at approximately 2345, patient's abdomen remains soft. He has not had profuse vomiting here, and his sister states that he may have spit up. I will discuss the patient with Dr. Grant with general surgery with concern for the patient's sigmoid volvulus. In discussion with Dr. Grant, as the patient has a SOFT SHOE DANCER shunt, it is not advisable that he be admitted here as there is no neurosurgery available in the event that the shunt needs were placed, or gets infected. In discussion with his sister, she agrees with the need for transfer to an outside facility. I discussed the patient with the [facility], and while he was initially accepted there, there is a long waiting list and I was told that he needed a "backup plan" by the on-call colorectal surgeon. Of note, gastroenterology is unavailable here for any sigmoid volvulus decompression withendoscopy. In discussion with his sister, she states that she would like [facility] to be tried for transfer as I do feel his sigmoid volvulus requires more emergent attention. I discussed the patient with Dr. Navarro with acute care surgery who recommends ED to ED transfer. I then discussed the patient with Dr. Murillo in the ED at the [facility] at [facility] whois excepted him in transfer. The colorectal surgeon was also on the line, and she agrees with the ED to ED transfer. I informed the patient and his sister that they would be transferred. In the meantime, I did have the RN inserted an NG tube to low intermittent wall suction. KUB x-ray was obtained for placement and interpreted by myself. Upon my interpretation it does appear to be in good position. I reviewed the radiology report and they confirm good placement of the NG tube. At this point in time, he will be transferred in stable condition. Lab Data Attestation: I reviewed the patient's lab results. Labs: Laboratory Results - last 24 hr 12/10/22 12/10/22 22:53 22:53 WBC 12.1 H RBC 4.96 Hgb 14.6 Hct 41.8 MCV 84.3 MCH 29.4 MCHC 34.9 RDW Std Deviation 40.9 RDW Coeff of Frieda 13.2 Plt Count 425 MPV 9.7 Immature Gran % (Auto) 0.200 Neut % (Auto) 78.7 H Lymph % (Auto) 11.0 L [place] % (Auto) 9.7 Eos % (Auto) 0.2 Baso % (Auto) 0.2 Absolute Neuts (auto) 9.5 H Absolute Lymphs (auto) 1.34 Nucleated RBC % 0 Sodium 129 L Potassium 3.9 Chloride 95 L Carbon Dioxide 23.0 Anion Gap 11 BUN 16 Creatinine 0.76 Estim Creat Clear Calc 83.85 Est GFR (MDRD) Af Amer 138 Est GFR (MDRD) Non-Af 114 BUN/Creatinine Ratio 21.2 H Glucose 146 H Calcium 8.7 Total Bilirubin 0.40 AST 13 L ALT 19 Alkaline Phosphatase 63 Total Protein 7.4 Albumin 3.4 Globulin 4.0 Albumin/Globulin Ratio 0.8 L Lipase 95 Radiography Diagnostic Testing: Clinical Impression(s) from Imaging Studies Abdomen/Pelvis CT 12/10/22 22:24 IMPRESSION: Findings suspicious for sigmoid volvulus with high-grade bowel obstruction. Chronic findings involving the bladder with likely cystitis, unchanged since prior CT dated 09/20/2022. Other chronic findings as above. Electronically Signed: Reynold Anglin MD at 23:37 EST , ADDENDUM: 12/10/22 2352 IMPRESSION: Findings suspicious for sigmoid volvulus with high-grade bowel obstruction. Chronic findings involving the bladder with likely cystitis, unchanged since prior CT dated 09/20/2022. Other chronic findings as above. N.B. : The above information has been verbally conveyed by Reynold Anglin MD to Josiah Schaffer MD, on 12/10/2022 23:45:05 (ET). Electronically Signed: Reynold Anglin MD at 23:37 EST , KUB X-Ray 12/11/22 00:29 IMPRESSION: 1. Appropriate positioning of nasogastric tube. 2. Dilated small and large bowel. Electronically Signed: Shantelle Murillo MD at 1:55 EST , Critical Care Time Critical care time (excluding procedures): 30-74 minutes (22 minutes), Includingtime spent:, Discussing w/Patient &/or Family/Labor Relations Consultant, Discussing w/Consultants, Arranging Admission or Transfer and Performing Direct Patient Care at Bedside Discharge Plan Triage Chief Complaint: Nausea/Vomiting ED Provider: Josiah Schaffer Dx/Rx/DC Orders Clinical Impression: Sigmoid volvulus, Hyponatremia, Nausea and vomiting, SOFT SHOE DANCER (ventriculoperitoneal) shunt status Prescriptions: No Action Linzess 72 mcg capsule 145 mcg PO DAILY Label Comments: TAKE 1 CAP BY MOUTH ONCE DAILY ON EMPTY STOMACH SWALLOW WHOLE DO NOT CHEW/CRUSH baclofen 5 MG tablet 5 mg PO TID Rx Instructions: Hold for sedation/lethargy cephalexin [cephalexin] 500 mg capsule 500 mg PO Q6 Qty: 28 0RF sulfamethoxazole-trimethoprim [Bactrim DS] 800-160 mg tablet 1 tab PO BID 7 Days Qty: 14 0RF Rx Instructions: Start this antibiotic once you citrus picker the prescription. Stop the current Keflex that he is on because the bacteria may be resistant to it. The Bactrim he will take 1 pill twice a day for 7 days. Primary Care Provider: Clifford Estes Referrals: Clifford Estes MD [Primary Care Provider] - Disposition Disposition: Acute Care Hospital Discharge Location: [facility] What to do if you have Problems For any increased pain, shortness of breath, bleeding, nausea or vomiting, chestpain, or any unexpected problems, contact your Primary Care Provider. Call [facility] ([phone]) or report to the closest Emergency Room. Call 911 if necessary. 12/11/22524 <Electronically signed by Josiah Schaffer MD> Cosigner Signature (if applicable): CC: Dr. Clifford Estes MD ~ Signed [facility] Work Phone: 1(232) 125-319312-19-2022 Miscellaneous Notes* Telephone Encounter - Mabel Lopez [...] Rea LPN - 11/01/2022 12:43 PM EST Cori with [facility] called, stating patient sister took catheter out of Nurse hand when going to place new one in patient, the patient sister proceeded to place catheter in patient, later that evening removed catheter stating it was not working and took to ER. Sister stated ER Placed a 14French instead of 16 Ukrainian. Home health is frustrated with the sister, and want to know if they should continue hannon changes or can it be done in office? Please advise. Thank you. Janay# [phone] * Telephone Encounter - Mercy Noonan RN - 10/29/2022 1:32 PM EST Shruthi from [facility] calls and states that she had changed Hannon catheter today. residential is decreasing their frequency of visits to 1 time a month. Next visit is 11/23/2022 where they will re-certify patient again. Mercy Noonan RN documented in this encounterSalem City Hospital12-09-2022 Miscellaneous Notes* Telephone Encounter - Kaylee Salguero LPN - 10/22/2022 10:33 AM EST Left detailed message as advised. * Telephone Encounter - Clifford Estes MD - 10/22/2022 8:29 AM EST Ok to do * Telephone Encounter - Stephanie Velez LPN - 10/22/2022 8:15 AM EST Sallie with [facility], nursing called to get a verbal order to move apt from today to reevaluate. Apt was to be today but pt has declined apt today and asking to have next week. Please call Sallie with verbal order. Okay to leave a message. [phone]. Stephanie Velez LPN documented in this encounterSalem City Hospital11-29-2022 History of Present illness Narrative* Brice Henriquez MD - 10/12/2022 12:36 PM EST [facility] UROLOGY HISTORY AND PHYSICAL ESTABLISHED PATIENT VISIT PATIENT: Jian Altamirano : 1965 DATE OF SERVICE: October 12, 2022 HISTORY OF PRESENT ILLNESS: Jian Altamirano is a 56 year old male with history of hydrocephalous, recurrent small bowel obstructions, bilateral inguinal hernias, and neurogenic bladder who presents to clinic today for follow-up for bladder stones/calcified debris, recurrent UTI and chronic indwelling hannon catheter. Patient has had urethral hannon (16 Fr) exchanged multiple times with prior discussions focused on consideration of SP or ileal conduit if other surgery planned. Patient was admitted to [facility] for SBO on 04/14/2022 and was [...] for hematuria. Chronic indwelling 16 Fr urethral hannon with mild debris in urine. Currently on [...] small bowel obstructions Genitourinary: Chronic indwelling urethral hannon, recurrent UTIs Musculoskeletal: Contracted muscles Skin: Negative [...] (HCC) Inguinal hernia left - imaging at [facility] Sleep apnea Spina bifida (HCC) Urinary retention PAST SURGICAL HISTORY Procedure Laterality Date CRTJ SHUNT [id number] TERMINUS EGD W/O BRSH SPEC VARICIES INJ [...] Bilateral inguinal hernias appreciated, 16 Fr urethral hannon inserted draining CYU EXT: [x] No edema [...] stones/calcified debris, recurrent UTI and chronic indwelling hannon catheter. Herniation of leftanterior bladder noted on prior CT with calcified matierial in area of herniation. PLAN: - Relatively stable bladder stone/calcification burden - Deferring on SP tube placement for now - Continue routine hannon catheter exchanged, continue monitoring for febrile UTIs [...] and notify me if his condition worsens Brice Henriquez MD documented in this encounterSalem City Hospital11-23-2022 Miscellaneous Notes* Telephone Encounter - Kaylee Salguero LPN - 10/06/2022 12:11 PM EST Completed and faxed. * Telephone Encounter - Wilfredo Monet - 10/04/2022 12:05 PM EST Physician order placed on [employer]'s desk for signature. Needs faxed back to [phone] Wilfredo Monet documented in this encounterSalem City Hospital11-21-2022 Instructions* Patient Instructions* Liz Villarreal PA-C - 10/04/2022 6:14 PM EST Dear Jian Altamirano, It was a pleasure seeing you and [...] anytime. My PA Liz, nurse Aileen and clinical secretary Kishor are also very familiar with you and they can help as well, but I am here for you anytime.Follow up appt at: [phone]. Scheduling number is: [phone] Best regards, Nayely Nazario M.D Brake Tester, GI motility & pelvic floor clinic Department of Gastroenterology, Nutrition & Hepatology [facility] [place] ([facility] documented in this encounterSalem City Hospital11-21-2022 History of Present illness Narrative* Nayely Nazario MD - 10/04/2022 3:30 PM EST DEPARTMENT OF GASTROENTEROLOGY - NEW PATIENT/CONSULT NEUROGASTROENTEROLOGY SECTION GI MOTILITY & PELVIC FLOOR CLINIC REASON FOR VISIT Jian Altamirano is a 56 year old male who is scheduled at the request of Millie Kaur for slow transit dysmotility. My final recommendations will be communicated back to the requesting physician by the way of the shared medical record, fax, or via US Mail.slow transit dysmotility HISTORY OF PRESENT ILLNESS Patient presents with sister (a POWERHOUSE OILER). Jian Altamirano is a 56 year old male who [...] - zero, stress d/t hospitalizations Worked at [employer] until COVID19 & bowel problems becoming time consuming Reviewed extensive testing in the past 09/28/2022 XRAY ABDOMEN ([facility]) IMPRESSION: Persistent large bowel ileus. No evidence of SBO. EGD 08/06/2021([facility]) IMPRESSION: Normal esophagus Duodenal polyp, resected and [...] (HCC) Inguinal hernia left - imaging at [facility] Sleep apnea Spina bifida (HCC) Urinary retention PAST SURGICAL HISTORY Procedure Laterality Date CRTJ SHUNT [id number] TERMINUS EGD W/O BRSH SPEC VARICIES INJ [...] EXAMINATION BP 145/92 Pulse 89 Ht 5' 3" (1.60m) Wt 119 lb (54.0kg) SpO2 100% [...] (U/L) Date Value 04/19/2022 34 IMPRESSION Mr. Altamirano is a 56 year old year old [...] of the abdomen <1 mo ago at [facility]. Recent xray with persistent large bowel ileus. [...] follow up as needed Nayely Nazario M.D Brake Tester, GI motility & pelvic floor clinic Department of Gastroenterology, nutrition & hepatology [facility] [place] ([facility] I spent a total of 60 minutes on the date of the service which included preparing to see the patient, [id number]-flxi patient care, completing clinical documentation, obtaining and/or reviewing separately obtained history, performing a medically appropriate examination, counseling and educating the pat ient/family/caregiver, ordering medications, tests, or procedures, communicating with other HCPs (not separately reported), independently interpreting results (not separately reported), communicatingresults to the patient/family/caregiver, and care coordination (not separately reported). documented in this encounterSalem City Hospital11-16-2022 Miscellaneous Notes* Telephone Encounter - Dalia Floyd RN - 09/29/2022 2:15 PM EST Barbara PT @ [facility] calling to let PCP know PT evaluated patient today and patient does not need physical therapy services at this time. He is at his baseline prior to hospitalization. Dalia Floyd RN documented in this encounterSalem City Hospital11-02-2022 Miscellaneous Notes* Telephone Encounter - Kaylee Salguero LPN - 09/15/2022 11:40 AM EDT Form [...] Nurse Rich Guajardo LPN documented in this encounterSalem City Hospital10-28-2022 Miscellaneous Notes* Telephone Encounter - Millie Kaur APRN.KAREN - 09/10/2022 9:16 AM EDT Called and spoke to patient's sister. Reports she took patient to ED last night and he is currentlyadmitted at [facility] awaiting transfer to [facility]. Recommended follow up with Dr. Nazario at [facility] for slow transit constipation and motility after [...] no BM's for awhile. documented in this encounterSalem City Hospital10-24-2022 Miscellaneous Notes* Telephone Encounter - Kassy Willson Ma - 09/06/2022 11:38 AM EDT VO given to ted at [facility] * Telephone Encounter - Yvette Gao APRN.CNP - 09/06/2022 10:16 AM EDT Agree. Yvette Gao APRN.CNP * Telephone Encounter - Mercy Noonan RN - 09/06/2022 10:03 AM EDT Ted from [facility] calls to report that physical therapy did not visit the patient on 09/03/2022 due to they needed insurance authorization. Ted asking for orders to omit that visit. Ted also asking for orders for physical therapy to do a 1 time visit for re-evaluation of physical therapy. Please review and advise, Mercy Noonan RN documented in this encounterSalem City Hospital10-12-2022 Miscellaneous Notes* Telephone Encounter - Wilfredo Monet - 08/25/2022 1:28 PM EDT Spoke with Darrion, patients sister and informed of results. She verbalized understanding. Wilfredo Monet * Telephone Encounter - Clifford Estes MD - 08/25/2022 12:49 PM EDT Platelets are up,likely due to recent infection. Sodium is better but still low. Recheck labs in one week documented in this encounterSalem City Hospital10-11-2022 History of Present illness Narrative* Clifford Estes MD - 08/24/2022 2:05 PM EDT [...] is doing well. SeeTCM noted. Discharged from [facility] on 08/14: Copied from [facility] [employer]: This 56 year-old white male seen in the emergency room at [facility] with complaints of fever and chills and altered mental status. Patient has a chronic indwelling Hannon, labs obtained in the emergency room revealed an elevated white blood cell count 11.4, patient's sodium was lowat 119. Chest x- ray showed no acute abnormal finding, patient's urinalysis showed red blood cells, white blood cells, and bacteria although the patient did have a chronic indwelling Hannon catheter. Patient was lethargic. Patient was felt [...] his hospital stay. Patient lives with his family." Per sister, pt does not have any follow up's with ID and does have some questions regarding the type of bacterial growth found on urine cx. She plans to discuss with PCP at upcoming appt. MEDICATIONS: Current Outpatient Medications Medication Sig baclofen (LIORESAL) 5 mg tablet Take 1 tablet by mouth three times daily. brandonaclotide (LINZESS) 145 mcg capsule Take 1 capsule [...] (HCC) Inguinal hernia left - imaging at [facility] Sleep apnea Spina bifida (HCC) Urinary retention PAST SURGICAL HISTORY Procedure Laterality Date CRTJ SHUNT [id number] TERMINUS EGD W/O BRSH SPEC VARICIES INJ [...] 126/80 Pulse 94 Ht 157.5 cm (5' 2") Wt 54 kg (119 lb) SpO2 97% [...] region (HCC) - ICD9: 741.00, ICD10: Q05.4 Clifford Estes MD Keep follow up appt and prn documented in this encounterSalem City Hospital10-06-2022 Miscellaneous Notes* Telephone Encounter - Kaylee Salguero LPN - 08/19/2022 3:10 PM EDT Faxed as requested. * Telephone Encounter - Clifford Estes MD - 08/19/2022 2:30 PM EDT Printed. * Telephone Encounter - Ave Mullins LPN - 08/19/2022 1:28 PM EDT Khai from [facility] Home Health OT returned call and said family wants order for standard manual wheel chair with elevating leg rests faxed to [employer] fax number is [phone]. Patient height is 63 inches and weight is 119 pounds. * Telephone Encounter - Kyleigh Hernandez LPN - 08/18/2022 12:00 PM EDT Contacted Khai from , need to know where to send order. Khai states she will find out and call back. * Telephone Encounter - Clifford Estes MD - 08/17/2022 3:40 PM EDT written * Telephone Encounter - Mercy Noonan RN - 08/17/2022 1:47 PM EDT Khai OT from [facility] calls to report that she did only a one time visit. Khai states that patient is pretty much wheel chair bound. Patient wheel chair is old and torn withno cushion. Khai asking if provider can write a prescription for a new wheel chair and cushion. Please review and advise, Mercy Noonan RN documented in this encounterSalem City Hospital10-05-2022 Miscellaneous Notes* Telephone Encounter - Juan Daniel Finn RN - 08/18/2022 4:09 PM EDT Barbara- PT- [facility], reporting POC: will see patient 2 x's week for 2 weeks, for lower extremity strengthening, ROM, transfers, and gait training. documented in this encounterSalem City Hospital10-04-2022 History of Present illness Narrative* Rich Guajardo LPN - 08/17/2022 10:14 AM EDT TRANSITION CARE MANAGEMENT (TCM) INITIAL CONTACT Occupational Ther Outreach Provider Action/FYI: Copied from [facility]: This 56 year-old white male seen in the emergency room at [facility] with complaints of fever and chills and altered mental status. Patient has a chronic indwelling Hannon, labs obtained in the emergency room revealed an elevated white blood cell count 11.4, patient's sodium was lowat 119. Chest x- ray showed no acute abnormal finding, patient's urinalysis showed red blood cells, white blood cells, and bacteria although the patient did have a chronic indwelling Hannon catheter. Patient was lethargic. Patient was felt [...] his hospital stay. Patient lives with his family." Per sister, pt does not have any [...] might be hidden SUMMARY: -Pt discharged from [facility] on 08/14/22. -Admitted for: UTI, hyponatremia Do [...] Requested from outside hospital documented in this encounterSalem City Hospital09-29-2022 Miscellaneous Notes* Telephone Encounter - Kassy Willson Ma - 08/12/2022 12:11 PM EDT Patient currently admitted and being treated for UTI * Telephone Encounter - Clifford Estes MD - 08/12/2022 12:05 PM EDT I think he is still in the hospital for ? Uti. Can we check. * Telephone Encounter - Morenita Neil Ma - 08/12/2022 12:00 PM EDT See outside external lab. View External Lab - Miscellaneous Lab [ID [id number]] Morenita Neil Ma documented in this encounterSalem City Hospital09-28-2022 Miscellaneous Notes* Telephone Encounter - Daniela Nelson RN - 08/11/2022 9:13 AM EDT Serina SW with [facility] HH calls to let provider know that she planned to see patient in the home today to help complete advance directives--POA. Serina reports that patient is currently hospitalized at [facility] PCU and SW will assist patient with this while he is there. Serina reports she shouldn't need anyfurther SW visits in the home but will call back if that changes. Daniela Nelson RN documented in this encounterSalem City Hospital09-27-2022 Miscellaneous Notes* Telephone Encounter - Kassy Willson Ma - 08/10/2022 1:16 PM EDT VO given to Moriah from [facility] * Telephone Encounter - Juan Daniel Wolff PA-C - 08/10/2022 12:51 PM EDT Telephone on 08/10/22 URINALYSIS, REFLEX MICROSCOPIC URINE CULTURE Abnormal urine color (primary encounter diagnosis) Urinary catheter in place Brayan Lawson PA-C * Telephone Encounter - Ave Mullins LPN - 08/10/2022 10:22 AM EDT Moriah from [facility] Home Health calling patient caregiver has called her and said his urine color is much darker, he has hannon catheter chronically. She plans to go to home later this morning. She is askingfor orders for urine sample. Pending orders needs diagnosis. Please advise documented in this encounterSalem City Hospital09-23-2022 Miscellaneous Notes* Telephone Encounter - Jane Wiggins RN - 08/06/2022 3:42 PM EDT Nhi nurse from [facility] called in and reports she was getting notifications that the Pt had been in the hospital from 07/20-07/23. I told her I didn't see in our system that the Pt had been. She saidshe couldn't pull any visits up either. documented in this encounterSalem City Hospital09-22-2022 Miscellaneous Notes* Telephone Encounter - Morenita Neil Ma - 08/05/2022 11:29 AM EDT Returned call to Phyllis, notified her of response from PCP, verbalized understanding. Morenita Neil Ma * Telephone Encounter - Clifford Estes MD - 08/05/2022 10:24 AM EDT Ok to do * Telephone Encounter - Mercy Noonan RN - 08/05/2022 10:00 AM EDT Serina BAUTISTA from [facility] calls and asking for a verbal order for continued Social Work for 1 time for 2 weeks. Please give Serina a call back at with verbal order if agreeable. Mercy Noonan RN documented in this encounterSalem City Hospital09-20-2022 Miscellaneous Notes* Telephone Encounter - Melodie Kim RN - 08/03/2022 11:58 AM EDT Shantelle Nurse, notified of order. Melodie Kim RN * Telephone Encounter - Yvette Gao APRN.KAREN - 08/03/2022 11:48 AM EDT Okay to change catheter. Yvette Gao APRN.[employer] HAND FINISHER * Telephone Encounter - Melodie Kim RN - 08/03/2022 10:19 AM EDT Shantelle, a nurse with [facility] calling to state patient's daughter reports patient's catheter is leaking. Shantelle is planning to visit patient at this afternoon. She is asking for an order to change the catheter today, if provider agreeable- It was to be changed on 08/11. Please call Shantelle with order at [phone]. Thank you. documented in this encounterSalem City Hospital09-19-2022 Miscellaneous Notes* Telephone Encounter - Clifford Estes MD - 08/02/2022 3:15 PM EDT noted * Telephone Encounter - Juan Daniel Finn RN - 08/02/2022 2:43 PM EDT Khai- [facility] OT reporting POC- there was a delay of care waiting for insurance authorization. Plan to see patient 2 x's week for 2 weeks, then 1 x week for 1 week, for home exercise to improve transfers, and education for caregivers. Does not need a call back as long as pcp agrees. documented in this encounterSalem City Hospital09-19-2022 Miscellaneous Notes* Telephone Encounter - Kaylee Salguero LPN - 08/02/2022 11:27 AM EDT As requested this was printed in letters and sent to patient via mail. This was requested by [facility] office the day of visit. * Telephone Encounter - Clifford Estes MD - 08/02/2022 8:41 AM EDT His labs are stable. Platelets are mildly up. Potassium is mildly up. Sodium is low but stable. Recheck labs in two weeks documented in this encounterSalem City Hospital09-16-2022 History of Present illness Narrative* Clifford Estes MD - 07/30/2022 3:39 PM EDT Patient presents with: Hospital F/U HPI: Patient presents today for office visit for hospital follow up. Bowel obstruction and UTI. Was in [facility] Admitted 07/21-07/25 DX:admitted with SBO, cystitis. Is [...] (HCC) Inguinal hernia left - imaging at [facility] Sleep apnea Spina bifida (HCC) Urinary retention PAST SURGICAL HISTORY Procedure Laterality Date CRTJ SHUNT [id number] TERMINUS EGD W/O BRSH SPEC VARICIES INJ [...] 130/86 Pulse 97 Ht 157.5 cm (5' 2") Wt 54 kg (119 lb) SpO2 97% BMI 21.77 kg/m Last 4 Encounter Wt Readings: Date: Wt: 07/30/2022 54 kg (119 lb) 06/11/2022 55.8 kg (123 lb) 04/13/2022 55.9 kg (123 lb 3.8 oz) 02/02/2022 0 kg () PHYSICAL EXAMINATION: General appearance: Wheelchair. Appears healthy. Urine is draining clear in hannon. Skin: Skin color, texture, turgor normal, no [...] 276.1, ICD10: E87.1 - BASIC METABOLIC PNL Clifford Estes RTO in six months and prn. documented in this encounterSalem City Hospital09-16-2022 Miscellaneous Notes* Telephone Encounter - Clifford Estes MD - 07/30/2022 3:22 PM EDT ok * Telephone Encounter - Ave Mullins LPN - 07/30/2022 3:15 PM EDT Barbara from [facility] Health calling with PT plan of care, 2 visits weekly for 3 weeks working on lower extremities range of motion, tone management, transfer and gait training, core strength. documented in this encounterSalem City Hospital09-13-2022 Miscellaneous Notes* Telephone Encounter - Mercy Noonan RN - 07/27/2022 4:36 PM EDT Christiano from [facility] calls and states that she did receive orders from provider via detailed message. Patient needs nystatin powder prescription to be sent to [facility]. Please review and advise, Mercy Noonan RN documented in this encounterSalem City Hospital09-13-2022 Miscellaneous Notes* Telephone Encounter - Diane Franco Ma - 07/27/2022 3:27 PM EDT Detailed message left on Cori's identified confidential VM. Diane Franco Ma * Telephone Encounter - Clifford Estes MD - 07/27/2022 3:17 PM EDT Ok for all * Telephone Encounter - Jane Wiggins RN - 07/27/2022 2:45 PM EDT Janay SN with [facility] called in and reports they will [...] that. Pleasecall and advise. documented in this encounterSalem City Hospital09-12-2022 Miscellaneous Notes* Telephone Encounter - Rich Guajardo LPN - 07/26/2022 5:44 PM EDT TC to leonel Petit detailed message on secure identified voicemail. Marisabel only to return call to office /c any questions. Rich Guajardo LPN * Telephone Encounter - Clifford Estes MD - 07/26/2022 5:09 PM EDT ok * Telephone Encounter - Dalia Floyd RN - 07/26/2022 4:45 PM EDT nurse Marisabel @ [facility] calling to let PCP know patient was discharged from [facility] on 07/25 post hospitalization for ileus, SBO, gastroparesis, UTI. He has home health orders for nursing, PT/OT. Agree and willing to follow? Please call with verbal okay. # [phone]. Dalia Floyd RN documented in this encounterSalem City Hospital09-02-2022 Instructions* Patient Instructions* Julita Sofia DO [...] for treating the spasticity. documented in this encounterSalem City Hospital09-02-2022 History of Present illness Narrative* Julita Sofia DO - 07/16/2022 11:00 AM EDT Images from the original note were not included. [facility] Follow up/ Established patient visit Individuals who were included in, or assisted with the encounter were: Jian Reuben Sofia DO Chief Complaint/Issues: Jian Alexis Jeanromelia is a 56 year old male seen in the [facility] for: Spasticity or b/l UE and LE, neurogenic bladder, bowel dysfunction. Multiple surgeries through the years to his legs, wheelchair bound with catheter Diagnosis/Issues: Relevant Medical Issues: 1. Hydrocephalus s/p SOFT SHOE DANCER shunt 2. Spina bifida 3. Spastic paraparesis with neurogenic bladder, SBO in 04/2022 and right head tilt Current Treatment and Relevant Treatment History: 1. baclofen 07/08/2022 2. referred to spasticity clinic for botox evaluation Follows with urology and GI Imaging/Studies/Labs: No FIELD SERVICE REPRESENTATIVE imaging Most Recent Neurological Assessment and Plan: [...] history of spina bifida with hydrocephalus s/p SOFT SHOE DANCER shunt placed at who presents for followup [...] at this time. Driving up to main [employer] is very difficult, as his sister Darrion, [...] SURGICAL HISTORY Procedure Laterality Date CRTJ SHUNT [id number] TERMINUS PAST SURGICAL HISTORY OF repair of [...] ED PATIENT INFORMATION Result Value Ref Range Chemical Engraver Provider DALILA your patient JIAN ALTAMIRANO has been assigned their Irene program. The date to complete this order is 07-19-2022 The Irene program is: PATIENT SAFETY AND FALL PREVENTION The patient access code to view the Irene program is: [id number] To view the Irene program go to: [email or web address] Patient-Entered Data: 07/11/22 - GENERAL NEUROLOGY SCORES No flowsheet data found. Depression Screening 09/06/2016 08/22/2018 PHQ-2 Score 2 0 No flowsheet data found. No flowsheet data found. No flowsheet data found. I spent a total of 35 minutes on the date of the service which included preparing to see the patient, [id number] patient care, completing clinical documentation, obtaining and/or reviewing separately obtained history, performing a medically appropriate examination, counseling and educating the pat ient/family/caregiver, ordering medications, tests, or procedures, independently interpreting results (not separately reported), and care coordination (not separately reported). Julita Sofia DO documented in this encounterSal[facility]07-29-[facility]22 Instructions* Patient Instructions* Millie Kaur APRN.CNP - 06/11/2022 4:18 PM EDT PLAN - Trial increase Linzess 145mcg daily. - 2 kiwi fruit/day - Follow up 6 months. documented in this encounterSalem City Hospital07-29-2022 History of Present illness Narrative* Millie Kaur APRN.CNP - 06/11/2022 4:07 PM EDT Jian Altamirano, 56 year old male here for follow-up [...] - Follow up 6 months. Millie Kaur APRN.CNP June 11, 2022 4:08 PM documented in this encounterSalem City Hospital07-19-2022 History of Present illness Narrative* Mabel Lopez LPN - 06/01/2022 1:56 PM EDT CC Hannon catheter in Place HPI: Jian Altamirano is a 56 year old male. The patient is here now for a supra hannon catheter change. Procedure: Performed a catheter change. Removed fluid from balloon in the hannon. The indwelling hannon catheter size 16 Fr Coude was removedwith [...] planned. Mabel Lopez LPN documented in this encounterSalem City Hospital06-17-2022 History of Present illness Narrative* Blaire Pandey RN - 04/30/2022 2:37 PM EDT Patient present for hannon catheter change. 16F coude hannon catheter removed with cath tip intact. Patient was then prepped with betadine usingsterile technique. 16F coude hannon catheter inserted and balloon inflated with 10 mL sterile water.Approximately 50 mL of urine drained into leg bag without issue. Patient tolerated procedure without distress. Instructions given on catheter care. Blaire Pandey RN documented in this encounterSalem City Hospital06-14-2022 Miscellaneous Notes* Telephone Encounter - Kassy Willson Ma - 04/27/2022 12:13 PM EDT Order faxed * Telephone Encounter - Kassy Willson Ma - 04/27/2022 11:[address] referral then will fax to [phone] Spoke with Enedina, then her motion picture equipment supervisor Hiral, they will try to get one out to him. * Telephone Encounter - Clifford Estes MD - 04/27/2022 11:39 AM EDT Are we able to have the agencies social work lecturer see him? * Telephone Encounter - Ave Mullins LPN - 04/27/2022 10:02 AM EDT Enedina from [facility] calling she opened patient case on [...] seen conditions like this. documented in this encounterSalem City Hospital06-10-2022 Miscellaneous Notes* Telephone Encounter - Makenna Gonzalez RN - 04/23/2022 2:57 PM EDT PATIENT INFORMATION Record ID: [id number] [facility]: [facility] [place]: [facility] [place] Attending: Francisca Jensen Center: General Surgery INSTRUCTIONS Continue with script and ensure patient has number or is given number to appointment center [phone] All Clear All Clear SURVEY INFORMATION Medical[facility]Nurse Distribution Center Assistant: Makenna Gonzalez 1. Your discharge instructions are [...] symptoms? (Standard Question) No documented in this encounterSalem City Hospital06-10-2022 Miscellaneous Notes* Telephone Encounter - Rich Guajardo LPN - 04/23/2022 11:15 AM EDT TC to Maryann, detailed message left on secure identified voicemail. Rich Guajardo LPN * Telephone Encounter - Clifford Estes MD - 04/23/2022 11:05 AM EDT Ok to start * Telephone Encounter - Jane Wiggins RN - 04/23/2022 9:30 AM EDT Maryann from [facility] will be faxing an order to provider at [phone]. This is for verbal for start of care for PT evaluation and treatment date 04/20/22. She states they will have a fax number on the paper for provider to send back to, she said to just put Attn: Penelope. documented in this encounterSalem City Hospital06-07-2022 Miscellaneous Notes* Telephone Encounter - Katiana Loera LPN - 04/20/2022 3:07 PM EDT CONFIRMATION CALL a. Date and Time: 3:08 PM 04/20/2022 b. Contact name/relationship: Spoke with patients sister DARRION and she said [facility] will be providinghomecare at this time. I told her if any problems please call. Katiana Loera LPN documented in this encounterSalem City Hospital05-20-2022 Miscellaneous Notes* Telephone Encounter - Mabel [...] office. Joana Quiñones RN documented in this encounterSalem City Hospital05-18-2022 Miscellaneous Notes* Telephone Encounter - Juvenal Henry MD - 03/31/2022 6:24 PM EDT Updated Nurse on-Call: Paged by RN re: Mr. Jian Altamirano, a 56 yo man w/PMH s/f spina bifida with hydrocephalus s/p SOFT SHOE DANCER shunt placed at , spastic paraparesis, and neurogenic bladder who last saw Dr. Sofia in Neurology clinic for spasticity. Mr. Altamirano's family called asking for a re-fill for [...] as well. Juvenal Henry MD PGY-2, Neurology [phone] 6:32 PM, March 31, 2022 documented in this encounterSalem City Hospital05-18-2022 Miscellaneous Notes* Telephone Encounter - Chriss [...] were reviewed, (see list,) no new allergies [facility] pharmacy in [place], Paged the doctor radiation / chemistry technician for Dr Sofia, and Dr Juvenal Henry [...] 8a.m. tomorrow morning. (Dr Sofia's office phone [phone]) documented in this encounterSalem City Hospital05-17-2022 Miscellaneous Notes* Telephone Encounter - Mabel Quiñones RN - 03/30/2022 1:37 PM EDT Refused refill request again as no longer under providers care. Joana Quiñones RN documented in this encounterSalem City Hospital05-12-2022 Miscellaneous Notes* Telephone Encounter - Mabel [...] three times daily. CARINE: No Pharmacy Name: [facility] Phone #: [phone] Paco Hawkins documented in this encounterSalem City Hospital05-05-2022 Miscellaneous Notes* Telephone Encounter - Laura Perez Sec - 03/18/2022 9:47 AM EDT Forwarding script request to covering provider for approval; in lieu of Millie's absence. documented in this encounterSalem City Hospital04-22-2022 History of Present illness Narrative* RT Eitan(R) - 03/05/2022 4:00 PM EDT Radiology Service Progress Note PATIENT NAME: Jian Altamirano DATE OF SERVICE: March 05, 2022 TIME: [...] 05, 2022 4:34 PM documented in this encounterSalem City Hospital04-06-2022 Miscellaneous Notes* Telephone Encounter - Laura Jacobo RN - 02/17/2022 11:46 AM EDT Will have patient contact schedulers to schedule appointments. * Telephone Encounter - Keisha Allen Pss - 02/17/2022 11:15 AM EDT Patient is at [facility] currently wants to know if they can schedule CT while they are here want a call back form Laura. 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 Soto [...] monthly. CT non-contrast to assess for stones. Brice Henriquez MD documented in this encounterSalem City Hospital04-05-2022 Miscellaneous Notes* Telephone Encounter - Laura Jacobo RN - 02/16/2022 9:20 AM EDT Message sent to schedulers. * Telephone Encounter - Keisha Allen Pss - 02/16/2022 8:55 AM EDT Sister wants a call back to schedule CT with the Clinic for the patient documented in this encounterSalem City Hospital04-05-2022 Miscellaneous Notes* Telephone Encounter - Laura Perez Sec - 02/16/2022 8:49 AM EDT Patient's sister called stating that he's completely out of his Linzess medication. Can refills be added this time please? Forwarding script request to covering provider for approval; in lieu of Millie's absence. documented in this encounterSalem City Hospital04-05-2022 Miscellaneous Notes* Telephone Encounter - Laura [...] wants a call back. documented in this encounterSalem City Hospital04-01-2022 History of Present illness Narrative* Mabel Lopez LPN - 02/12/2022 10:49 AM EDT CC Hannon catheter in Place HPI: Jian Alexis Jeanromelia is a 56 year old male. The patient is here now for a hannon catheter change. Darrion, patients sister/caregiver, reports that hannon catheter last changed at [facility] on 01/10/2022. Procedure: Performed a catheter change. Removed fluid from balloon in the hannon. The indwelling hannon catheter hannon size 16 Fr coude was removed with [...] planned. Mabel Lopez LPN documented in this encounterSalem City Hospital03-22-2022 History of Present illness Narrative* Lamont Eller MD - 02/02/2022 2:11 PM EDT Consultation requested by Self for an opinion regarding Jian Altamirano, who presents today for recurrent SBO.. My final recommendations will be communicated back to the requesting physician byway of shared Medical record or letter to requesting physician via US mail. [facility] STAFF PHYSICIAN NOTE OF PERSONAL [...] back to normal. PMHx per resident including SOFT SHOE DANCER shunt. PLAN: options of surgery now vs waiting for recurrent sx discussed. will repeat imaging now and decide. CT with PO contrast only. Medical Decision Making Daniel Eller MD Date of Service: February 02, 2022 Time of Service: 2:22 PM documented in this encounterSalem City Hospital03-22-2022 History and physical note * Nicho Jimenes MD - 02/02/2022 2:08 PM EDT SURGICAL SERVICES HISTORY AND PHYSICAL EXAMINATION SERVICE DATE: 02/02/2022 SERVICE TIME: 2:08 PM PRIMARY CARE PHYSICIAN: Clifford Estes MD SUBJECTIVE CHIEF COMPLAINT: Small bowel obstruction HISTORY OF PRESENT ILLNESS: Mr. Altamirano is a 56 year old male with a PMHx of spina bifida, hydrocephalus s/p SOFT SHOE DANCER shunt and dysmotility requiring regular suppositories and [...] (HCC) Inguinal hernia left - imaging at [place] Sleep apnea Spina bifida (HCC) Urinary retention PAST SURGICAL HISTORY: PAST SURGICAL HISTORY Procedure Laterality Date CRTJ SHUNT [id number] TERMINUS PAST SURGICAL HISTORY OF repair of [...] hypertension, CHF or palpitations GI: See HPI FORENSIC NURSE: Negative for abnormal vaginal bleeding, abnormal vaginal [...] PULSES: 2+ radial ASSESSMENT AND PLAN Jian Altamirano is a 56 year old male with [...] Jimenes MD PGY-2 General Surgery Resident Pager: [phone] 02/02/2022 documented in this encounterSalem City Hospital03-14-2022 Miscellaneous Notes* Telephone Encounter - Marcela Rowland LPN - 01/25/2022 2:45 PM EDT Called patient to gather medical record info. Patient voicemail not set up Spoke with patient sister, records at [facility]. Records requested 01/26/22 documented in this encounterSalem City Hospital03-21-2008 History of Past illness Narrative* Problem Noted Date Resolved Date CP (CEREBRAL PALSY - INFANTILE) HEMIPLEGIA, TESFAYE ENITAL 02/02/2008 05/22/2013 documented as of this encounter (statuses as of 02/03/2022) [facility] of Past illness Narrative* Problem Noted Date Resolved Date CP (CEREBRAL PALSY - INFANTILE) HEMIPLEGIA, TESFAYE ENITAL 02/02/2008 05/22/2013 documented as of this encounter (statuses as of 02/04/2022) [facility] of [facility] illness Narrative* Problem Noted Date Resolved Date CP (CEREBRAL PALSY - INFANTILE) HEMIPLEGIA, TESFAYE ENITAL 02/02/2008 05/22/2013 documented as of this encounter (statuses as of 02/12/2022) [facility] of [facility] illness Narrative* Problem Noted Date Resolved Date CP (CEREBRAL PALSY - INFANTILE) HEMIPLEGIA, TESFAYE ENITAL 02/02/2008 05/22/2013 documented as of this encounter (statuses as of 02/16/2022) [facility] Narrative* Problem Noted Date Resolved Date CP (CEREBRAL PALSY - INFANTILE) HEMIPLEGIA, TESFAYE ENITAL 02/02/2008 05/22/2013 documented as of this encounter (statuses as of 02/17/2022) [facility] Narrative* Problem Noted Date Resolved Date CP (CEREBRAL PALSY - INFANTILE) HEMIPLEGIA, TESFAYE ENITAL 02/02/2008 05/22/2013 documented as of this encounter (statuses as of 02/17/2022) [facility] Narrative* Problem Noted Date Resolved Date CP (CEREBRAL PALSY - INFANTILE) HEMIPLEGIA, TESFAYE ENITAL 02/02/2008 05/22/2013 documented as of this encounter (statuses as of 02/18/2022) [facility] Narrative* Problem Noted Date Resolved Date CP (CEREBRAL PALSY - INFANTILE) HEMIPLEGIA, TESFAYE ENITAL 02/02/2008 05/22/2013 documented as of this encounter (statuses as of 02/22/2022) [address]21-2008 History of Past illness Narrative* Problem Noted Date Resolved Date CP (CEREBRAL PALSY - INFANTILE) HEMIPLEGIA, TESFAYE ENITAL 02/02/2008 05/22/2013 documented as of this encounter (statuses as of 03/04/2022) [facility] Narrative* Problem Noted Date Resolved Date CP (CEREBRAL PALSY - INFANTILE) HEMIPLEGIA, TESFAYE ENITAL 02/02/2008 05/22/2013 documented as of this encounter (statuses as of 03/06/2022) [address]21-2008 History of Past illness Narrative* Problem Noted Date Resolved Date CP (CEREBRAL PALSY - INFANTILE) HEMIPLEGIA, TESFAYE ENITAL 02/02/2008 05/22/2013 documented as of this encounter (statuses as of 03/06/2022) [address]21-2008 History of Past illness Narrative* Problem Noted Date Resolved Date CP (CEREBRAL PALSY - INFANTILE) HEMIPLEGIA, TESFAYE ENITAL 02/02/2008 05/22/2013 documented as of this encounter (statuses as of 03/18/2022) [address]21-2008 History of Past illness Narrative* Problem Noted Date Resolved Date CP (CEREBRAL PALSY - INFANTILE) HEMIPLEGIA, TESFAYE ENITAL 02/02/2008 05/22/2013 documented as of this encounter (statuses as of 03/25/2022) [facility] Narrative* Problem Noted Date Resolved Date CP (CEREBRAL PALSY - INFANTILE) HEMIPLEGIA, TESFAYE ENITAL 02/02/2008 05/22/2013 documented as of this encounter (statuses as of 03/30/2022) [facility] Narrative* Problem Noted Date Resolved Date CP (CEREBRAL PALSY - INFANTILE) HEMIPLEGIA, TESFAYE ENITAL 02/02/2008 05/22/2013 documented as of this encounter (statuses as of 03/31/2022) [facility] Narrative* Problem Noted Date Resolved Date CP (CEREBRAL PALSY - INFANTILE) HEMIPLEGIA, TESFAYE ENITAL 02/02/2008 05/22/2013 documented as of this encounter (statuses as of 04/07/2022) [address]21-2008 History of Past illness Narrative* Problem Noted Date Resolved Date CP (CEREBRAL PALSY - INFANTILE) HEMIPLEGIA, TESFAYE ENITAL 02/02/2008 05/22/2013 documented as of this encounter (statuses as of 04/20/2022) [address]21-2008 History of Past illness Narrative* Problem Noted Date Resolved Date CP (CEREBRAL PALSY - INFANTILE) HEMIPLEGIA, TESFAYE ENITAL 02/02/2008 05/22/2013 documented as of this encounter (statuses as of 04/22/2022) [address]21-2008 History of Past illness Narrative* Problem Noted Date Resolved Date CP (CEREBRAL PALSY - INFANTILE) HEMIPLEGIA, TESFAYE ENITAL 02/02/2008 05/22/2013 documented as of this encounter (statuses as of 04/23/2022) [address]21-2008 History of Past illness Narrative* Problem Noted Date Resolved Date CP (CEREBRAL PALSY - INFANTILE) HEMIPLEGIA, TESFAYE ENITAL 02/02/2008 05/22/2013 documented as of this encounter (statuses as of 04/27/2022) [address]21-2008 History of Past illness Narrative* Problem Noted Date Resolved Date CP (CEREBRAL PALSY - INFANTILE) HEMIPLEGIA, TESFAYE ENITAL 02/02/2008 05/22/2013 documented as of this encounter (statuses as of 04/30/2022) [address]21-2008 History of Past illness Narrative* Problem Noted Date Resolved Date CP (CEREBRAL PALSY - INFANTILE) HEMIPLEGIA, TESFAYE ENITAL 02/02/2008 05/22/2013 documented as of this encounter (statuses as of 06/01/2022) [address]21-2008 History of Past illness Narrative* Problem Noted Date Resolved Date CP (CEREBRAL PALSY - INFANTILE) HEMIPLEGIA, TESFAYE ENITAL 02/02/2008 05/22/2013 documented as of this encounter (statuses as of 06/14/2022) [address]21-2008 History of Past illness Narrative* Problem Noted Date Resolved Date CP (CEREBRAL PALSY - INFANTILE) HEMIPLEGIA, TESFAYE ENITAL 02/02/2008 05/22/2013 documented as of this encounter (statuses as of 07/16/2022) [address]21-2008 History of Past illness Narrative* Problem Noted Date Resolved Date CP (CEREBRAL PALSY - INFANTILE) HEMIPLEGIA, TESFAYE ENITAL 02/02/2008 05/22/2013 documented as of this encounter (statuses as of 07/26/2022) [facility] Narrative* Problem Noted Date Resolved Date CP (CEREBRAL PALSY - INFANTILE) HEMIPLEGIA, TESFAYE ENITAL 02/02/2008 05/22/2013 documented as of this encounter (statuses as of 07/27/2022) [facility] Narrative* Problem Noted Date Resolved Date CP (CEREBRAL PALSY - INFANTILE) HEMIPLEGIA, TESFAYE ENITAL 02/02/2008 05/22/2013 documented as of this encounter (statuses as of 07/30/2022) [facility] Narrative* Problem Noted Date Resolved Date CP (CEREBRAL PALSY - INFANTILE) HEMIPLEGIA, TESFAYE ENITAL 02/02/2008 05/22/2013 documented as of this encounter (statuses as of 07/30/2022) [facility] Narrative* Problem Noted Date Resolved Date CP (CEREBRAL PALSY - INFANTILE) HEMIPLEGIA, TESFAYE ENITAL 02/02/2008 05/22/2013 documented as of this encounter (statuses as of 08/02/2022) [facility] Narrative* Problem Noted Date Resolved Date CP (CEREBRAL PALSY - INFANTILE) HEMIPLEGIA, TESFAYE ENITAL 02/02/2008 05/22/2013 documented as of this encounter (statuses as of 08/02/2022) [facility] Narrative* Problem Noted Date Resolved Date CP (CEREBRAL PALSY - INFANTILE) HEMIPLEGIA, TESFAYE ENITAL 02/02/2008 05/22/2013 documented as of this encounter (statuses as of 08/03/2022) [facility] Narrative* Problem Noted Date Resolved Date CP (CEREBRAL PALSY - INFANTILE) HEMIPLEGIA, TESFAYE ENITAL 02/02/2008 05/22/2013 documented as of this encounter (statuses as of 08/05/2022) [facility] Narrative* Problem Noted Date Resolved Date CP (CEREBRAL PALSY - INFANTILE) HEMIPLEGIA, TESFAYE ENITAL 02/02/2008 05/22/2013 documented as of this encounter (statuses as of 08/06/2022) [address]21-2008 History of Past illness Narrative* Problem Noted Date Resolved Date CP (CEREBRAL PALSY - INFANTILE) HEMIPLEGIA, TESFAYE ENITAL 02/02/2008 05/22/2013 documented as of this encounter (statuses as of 08/10/2022) [facility] Narrative* Problem Noted Date Resolved Date CP (CEREBRAL PALSY - INFANTILE) HEMIPLEGIA, TESFAYE ENITAL 02/02/2008 05/22/2013 documented as of this encounter (statuses as of 08/19/2022) [address]21-2008 History of Past illness Narrative* Problem Noted Date Resolved Date CP (CEREBRAL PALSY - INFANTILE) HEMIPLEGIA, TESFAYE ENITAL 02/02/2008 05/22/2013 documented as of this encounter (statuses as of 08/20/2022) [address]21-2008 History of Past illness Narrative* Problem Noted Date Resolved Date CP (CEREBRAL PALSY - INFANTILE) HEMIPLEGIA, TESFAYE ENITAL 02/02/2008 05/22/2013 documented as of this encounter (statuses as of 08/24/2022) [address]21-2008 History of Past illness Narrative* Problem Noted Date Resolved Date CP (CEREBRAL PALSY - INFANTILE) HEMIPLEGIA, TESFAYE ENITAL 02/02/2008 05/22/2013 documented as of this encounter (statuses as of 08/25/2022) [facility] Narrative* Problem Noted Date Resolved Date CP (CEREBRAL PALSY - INFANTILE) HEMIPLEGIA, TESFAYE ENITAL 02/02/2008 05/22/2013 documented as of this encounter (statuses as of 09/01/2022) [facility] Narrative* Problem Noted Date Resolved Date CP (CEREBRAL PALSY - INFANTILE) HEMIPLEGIA, TESFAYE ENITAL 02/02/2008 05/22/2013 documented as of this encounter (statuses as of 09/06/2022) [address]21-2008 History of Past illness Narrative* Problem Noted Date Resolved Date CP (CEREBRAL PALSY - INFANTILE) HEMIPLEGIA, TESFAYE ENITAL 02/02/2008 05/22/2013 documented as of this encounter (statuses as of 09/10/2022) [address]21-2008 History of Past illness Narrative* Problem Noted Date Resolved Date CP (CEREBRAL PALSY - INFANTILE) HEMIPLEGIA, TESFAYE ENITAL 02/02/2008 05/22/2013 documented as of this encounter (statuses as of 09/22/2022) [address]21-2008 History of Past illness Narrative* Problem Noted Date Resolved Date CP (CEREBRAL PALSY - INFANTILE) HEMIPLEGIA, TESFAYE ENITAL 02/02/2008 05/22/2013 documented as of this encounter (statuses as of 09/30/2022) [address]21-2008 History of Past illness Narrative* Problem Noted Date Resolved Date CP (CEREBRAL PALSY - INFANTILE) HEMIPLEGIA, TESFAYE ENITAL 02/02/2008 05/22/2013 documented as of this encounter (statuses as of 10/04/2022) [address]21-2008 History of Past illness Narrative* Problem Noted Date Resolved Date CP (CEREBRAL PALSY - INFANTILE) HEMIPLEGIA, TESFAYE ENITAL 02/02/2008 05/22/2013 documented as of this encounter (statuses as of 10/05/2022) [address]21-2008 History of Past illness Narrative* Problem Noted Date Resolved Date CP (CEREBRAL PALSY - INFANTILE) HEMIPLEGIA, TESFAYE ENITAL 02/02/2008 05/22/2013 documented as of this encounter (statuses as of 10/06/2022) [address]21[address]2008 History of Past illness Narrative* Problem Noted Date Resolved Date CP (CEREBRAL PALSY - INFANTILE) HEMIPLEGIA, TESFAYE ENITAL 02/02/2008 05/22/2013 documented as of this encounter (statuses as of 10/11/2022) [address]21[address]2008 History of Past illness Narrative* Problem Noted Date Resolved Date CP (CEREBRAL PALSY - INFANTILE) HEMIPLEGIA, TESFAYE ENITAL 02/02/2008 05/22/2013 documented as of this encounter (statuses as of 10/12/2022) [address]21[address]2008 History of Past illness Narrative* Problem Noted Date Resolved Date CP (CEREBRAL PALSY - INFANTILE) HEMIPLEGIA, TESFAYE ENITAL 02/02/2008 05/22/2013 documented as of this encounter (statuses as of 10/13/2022) [address]2008 History of Past illness Narrative* Problem Noted Date Resolved Date CP (CEREBRAL PALSY - INFANTILE) HEMIPLEGIA, TESFAYE ENITAL 02/02/2008 05/22/2013 documented as of this encounter (statuses as of 10/15/2022) [facility] Narrative* Problem Noted Date Resolved Date CP (CEREBRAL PALSY - INFANTILE) HEMIPLEGIA, TESFAYE ENITAL 02/02/2008 05/22/2013 documented as of this encounter (statuses as of 10/22/2022) [facility] Narrative* Problem Noted Date Resolved Date CP (CEREBRAL PALSY - INFANTILE) HEMIPLEGIA, TESFAYE ENITAL 02/02/2008 05/22/2013 documented as of this encounter (statuses as of 11/03/2022) [facility]03-21-2008 History of Past illness Narrative* Problem Noted Date Resolved Date CP (CEREBRAL PALSY - INFANTILE) HEMIPLEGIA, TESFAYE ENITAL 02/02/2008 05/22/2013 documented as of this encounter (statuses as of 12/16/2022) [facility]-21-2008 History of Past illness Narrative* Problem Noted Date Resolved Date CP (CEREBRAL PALSY - INFANTILE) HEMIPLEGIA, TESFAYE ENITAL 02/02/2008 05/22/2013 documented as of this encounter (statuses as of 12/16/2022) [facility]-21-2008 History of Past illness Narrative* Problem Noted Date Resolved Date CP (CEREBRAL PALSY - INFANTILE) HEMIPLEGIA, TESFAYE ENITAL 02/02/2008 05/22/2013 documented as of this encounter (statuses as of 12/17/2022) [facility]-21-2008 History of Past illness Narrative* Problem Noted Date Resolved Date CP (CEREBRAL PALSY - INFANTILE) HEMIPLEGIA, TESFAYE ENITAL 02/02/2008 05/22/2013 documented as of this encounter (statuses as of 12/21/2022) [facility]2008 History of Past illness Narrative* Problem Noted Date Resolved Date CP (CEREBRAL PALSY - INFANTILE) HEMIPLEGIA, TESFAYE ENITAL 02/02/2008 05/22/2013 documented as of this encounter (statuses as of 01/28/2023) [facility]2008 History of Past illness Narrative* Problem Noted Date Resolved Date CP (CEREBRAL PALSY - INFANTILE) HEMIPLEGIA, TESFAYE ENITAL 02/02/2008 05/22/2013 documented as of this encounter (statuses as of 02/12/2023) [address]21-2008 History of Past illness Narrative* Problem Noted Date Resolved Date CP (CEREBRAL PALSY - INFANTILE) HEMIPLEGIA, TESFAYE ENITAL 02/02/2008 05/22/2013 documented as of this encounter (statuses as of 02/15/2023) [address]21-2008 History of Past illness Narrative* Problem Noted Date Resolved Date CP (CEREBRAL PALSY - INFANTILE) HEMIPLEGIA, TESFAYE ENITAL 02/02/2008 05/22/2013 documented as of this encounter (statuses as of 02/16/2023) [address]21-2008 History of Past illness Narrative* Problem Noted Date Resolved Date CP (CEREBRAL PALSY - INFANTILE) HEMIPLEGIA, TESFAYE ENITAL 02/02/2008 05/22/2013 documented as of this encounter (statuses as of 02/17/2023) [address]21-2008 History of Past illness Narrative* Problem Noted Date Resolved Date CP (CEREBRAL PALSY - INFANTILE) HEMIPLEGIA, TESFAYE ENITAL 02/02/2008 05/22/2013 documented as of this encounter (statuses as of 02/18/2023) [address]21-2008 History of Past illness Narrative* Problem Noted Date Resolved Date CP (CEREBRAL PALSY - INFANTILE) HEMIPLEGIA, TESFAYE ENITAL 02/02/2008 05/22/2013 documented as of this encounter (statuses as of 02/26/2023) [facility] History of Past illness Narrative* Problem Noted Date Resolved Date CP (CEREBRAL PALSY - INFANTILE) HEMIPLEGIA, TESFAYE ENITAL 02/02/2008 05/22/2013 documented as of this encounter (statuses as of 03/09/2023) [facility] History of Past illness Narrative* Problem Noted Date Resolved Date CP (CEREBRAL PALSY - INFANTILE) HEMIPLEGIA, TESFAYE ENITAL 02/02/2008 05/22/2013 documented as of this encounter (statuses as of 03/10/2023) [address]21-2008 History of Past illness Narrative* Problem Noted Date Resolved Date CP (CEREBRAL PALSY - INFANTILE) HEMIPLEGIA, TESFAYE ENITAL 02/02/2008 05/22/2013 documented as of this encounter (statuses as of 03/10/2023) [facility] February 15, 2023 5:33am Note Date/Time February 15, 2023 5:33 am [facility] Medical Records Department [address] [place] [address] Emergency Department Summary 02/15/23 MR#: [id number] Acct: [id number] Name: JIAN ALTAMIRANO Rep #:[id number] : 1965 57 From: Josiah Schaffer MD PCP: Dr. Clifford Estes MD Status:REG E R Location: ED HPI History of Present Illness Chief Complaint: Hannon C/O Narrative Narrative: 57-year-old male, past medical history of gastroparesis, chronic indwelling Hannon that is changed once a month, presents with his sister who is his caregiver because of blocked Hannon catheter. She relates history that he calledher at around 3:00 in the morning, 2-1/2 hours ago, with bladder pressure. She was unable to irrigate his Hannon catheter like she usually does. She did not have anything to deflate the balloon. She thinks it may have been blocked for afew hours. No fevers or chills, no nausea or vomiting currently. He had been on cephalexin last month. She presents him for his Hannon catheter problem. [facility] Medical History Bladder diverticulum Bladder diverticulum Bladder stones Catheter-associated urinary tract infection Chronic indwelling Hannon catheter Fever Gastric paresis Gastroparesis History of urinary retention Hydrocephalus Hypertension Hyponatremia Ileus Inguinal hernia Kidney stones Seizures Home Medications linaclotide 72 mcg capsule (Linzess) 145 mcg PO DAILY constipation 07/31/21 [History Last Taken 07/20/22] baclofen 5 mg tablet 5 mg PO TID spasms 07/21/22 [History Last Taken 07/20/22] cephalexin 500 mg capsule 500 mg PO Q6 #28 caps 10/29/22 [Rx Last Taken Unknown] sulfamethoxazole 800 mg-trimethoprim 160 mg tablet (Bactrim DS) 1 tab PO BID 7 days #14 tabs 11/04/22 [Rx Last Taken Unknown] Allergy/AdvReac Type Severity Reaction Status Date / Time Iodinated Contrast Media Allergy Anaphylaxis Verified 10/29/22 14:20 [Iodinated Contrast Media - IV Dye] nitrofurantoin AdvReac Upset Verified 10/29/22 14:20 Stomach Family History Father Heart disease Kidney stones Prostate disease Brother Kidney stones Other Cancer Peptic ulcer disease Surgical History S/P release of urethral stricture S/P SOFT SHOE DANCER shunt Social History household members: family Smoking Status: Never smoker alcohol intake: never substance use type: does not use ROS ROS ED ROS Narrative Constitutional: No fever, no chills. HEENT: No sore throat. No neck pain. No loss of vision. No rhinorrhea. Cardiovascular: No chest pain. No palpitations. No pedal edema. Respiratory: No cough, no shortness of breath. Abdominal: No abdominal pain. No nausea. No vomiting. Genitourinary: No dysuria. No hematuria. History of bladder diverticulum. Chronic indwelling Hannon catheter. Unable to irrigate because Hannon catheter isblocked. Musculoskeletal: No myalgias. No arthralgias. Neurologic: No headaches. No dizziness. No lightheadedness. Skin: No rash. No change in color. Psychiatric: No depression. No anxiety. EXAM Physical Exam Narrative Exam Narrative: Afebrile. Vital signs noted. HEENT: Normocephalic. Atraumatic. PERRL, EOMI. Neck soft and supple. No pointtenderness or step off. Cardiovascular: Regular rate and rhythm. No murmurs, rubs, or gallops appreciated. Respiratory: No tachypnea. Lungs clear to auscultation bilaterally. Gastrointestinal: Abdomen soft, nontender, with normoactive bowel sounds. No rebound or guarding. Genitourinary: Exam performed after Hannon catheter had been changed by RN upon arrival, draining clear to yellow urine. Neurological: Awake. Alert. Nonfocal, nonlateralizing. Skin: No rash. Normal color. No pallor. Musculoskeletal: No pedal edema. Full range of motion extremities. Const Vital Signs: 02/15/23 05:20 Temperature 98.8 F Temperature Source Temporal Pulse Rate 85 Respiratory Rate 18 Blood Pressure 148/96 H Blood Pressure Mean 113 Pulse Ox 98 Oxygen Delivery Method Room Air MDM MDM MDM Narrative Medical decision making narrative: His obstructed Hannon catheter has been changed out. He was not due for a Hannon catheter change until mid month, in the next 1 to 2 weeks. At this point in time, I feel he can be discharged home to follow-up with his urologist and his primary care provider. I do feel that the blockage may have been secondary to sediment. I do not feel that he requires observation or outpatient antibiotics,this can be taken care of by his primary care provider and/or urologist because with his history of bladder diverticulum and chronic indwelling Hannon catheter, I do feel a urinalysis would most likely be colonized with bacteria. Hence, without any fever, I do not feel that he would require antibiotics regardless ofwhat the urinalysis would show. Return instructions were reviewed. Dispositionis discharged home in stable condition. Discharge Plan Triage Chief Complaint: Hannon C/O ED Provider: Josiah Schaffer Dx/Rx/DC Orders Clinical Impression: Hannon catheter problem, Obstructed Hannon catheter, Urinary catheter (Hannon) change required Instructions: Indwelling Urinary Catheter Dc, ED Hannon Catheter, Care Prescriptions: No Action Linzess 72 mcg capsule 145 mcg PO DAILY Label Comments: TAKE 1 CAP BY MOUTH ONCE DAILY ON EMPTY STOMACH SWALLOW WHOLE DO NOT CHEW/CRUSH baclofen 5 MG tablet 5 mg PO TID Rx Instructions: Hold for sedation/lethargy cephalexin [cephalexin] 500 mg capsule 500 mg PO Q6 Qty: 28 0RF sulfamethoxazole-trimethoprim [Bactrim DS] 800-160 mg tablet 1 tab PO BID 7 Days Qty: 14 0RF Rx Instructions: Start this antibiotic once you citrus picker the prescription. Stop the current Keflex that he is on because the bacteria may be resistant to it. The Bactrim he will take 1 pill twice a day for 7 days. Primary Care Provider: Clifford Estes Referrals: Clifford Estes MD [Primary Care Provider] - Activity Restrictions/Additional Instructions: Follow-up with your urologist as soon as possible. Disposition Disposition: Home, Self Care What to do if you have Problems For any increased pain, shortness of breath, bleeding, nausea or vomiting, chestpain, or any unexpected problems, contact your Primary Care Provider. Call [facility] ([phone]) or report to the closest Emergency Room. Call 911 if necessary. 02/15/23 0533 <Electronically signed by Josiah Schaffer MD> Cosigner Signature (if applicable): CC: Dr. Clifford Estes MD ~ Signed [facility] Work Phone: Discharge summary Author Ace Moncada [facility] May 16, 2023 1:31pm Note Date/Time May 16, 2023 1:31p m [facility] Medical Records Department [address] [place] [address] Discharge Summary 05/16/23 1325 MR#: [id number] Acct: [id number] Name: JIAN ALTAMIRANO Rep #:[id number] : 1965 57 From: Ace zelaya MD PCP: Dr. Clifford Estes MD Status:ADM I N [id number] Providers Date of Admission: 05/09/23 Primary Care Physician: Dr. Clifford Estes MD Consultations 05/15/23 12:25 Consult: Gastroenterology Routine Consulting Provider: [facility] Reason for Consult: Gastroparesis EMERGENT Consult: No MD Notified: Yes Date Notified: 05/15/23 Time Notified: 12:25 Method of Notification: Verbal Reason For Visit: SBO Diagnosis Discharge Diagnosis (1) Chronic intestinal pseudo-obstruction: Status: Acute Code(s): K59.89 - Other specified functional intestinal disorders Medications at Discharge Home Medications linaclotide 72 mcg capsule (Linzess) 290 mcg PO DAILY constipation 07/31/21 baclofen 5 mg tablet 5 mg PO TID spasms 07/21/22 erythromycin ethylsuccinate 200 mg/5 mL oral powder for suspension (EryPed 200) 100 mg (2.5 mL) PO TIDAC 30 days #225 mL 05/16/23 metoclopramide HCl 5 mg tablet (Reglan) 5 mg PO Q6H 30 days #120 tabs 05/16/23 tamsulosin 0.4 mg capsule 0.4 mg PO DAILY@1730 30 days #30 caps 05/16/23 Hospital Course Operations None Procedures None Summary of Care Provided Minutes Spent on Discharge: 36 Hospital Course: Per HPI: JIAN ALTAMIRANO, is a 57 M who presents with worsening abdominal pain and distention. Began around 1 AM. CAT scan performed in the emergency room showed progressive or recurrent distention of small bowel with transition to decompressed bowel in the central pelvis. Concerning for small bowel obstruction. NG tube was placed. ED reached out to [facility] for transfer. They reference the patient had a small bowel follow-through that he had had performed when he was transferred there month ago and showed no small bowel obstruction but was concerning for motility issue. The surgeon there recommended medical admission and conservative management. Patient's sister tells me the patient had not been feeling well for the previousfew days but did have flatus and a bowel movement yesterday. She thought that they were through the worst of it until he got worse earlier this morning. Hospital Course: 1. Chronic intestinal pseudoobstruction/spina bifida/hydrocephalus?57-year-old male presented to the hospital with what appeared to be a small bowel obstruction. He was started on NG tube and made n.p.o. This does happen periodically and he is not a great surgical candidate here. He did slowly improve and was placed on erythromycin as well as Reglan which did cause him to start having multiple bowel movements and he was able to tolerate a p.o. diet. Gastroenterology was consulted and felt that he was doing well and recommended Reglan and erythromycin on discharge. He is already on Linzess and does not take any medications other than baclofen for his muscle spasms and can cause constipation. I discussed with him the plan for possible discharge today and heexpressed understanding of the risks and benefits of going home and he would like to go home today, he feels much better today than when he came in. I do recommend that he follow-up with his PCP in 3 to 5 days as well as gastroenterology as an outpatient for continued monitoring and management of hisGI condition. Physical Exam Narrative General: Alert, Oriented x3, Cooperative, No apparent distress HEENT: Atraumatic, PERRLA, EOMI, Normocephalic Oral: Moist Mucosa Neck: Supple, No JVD Lungs: Diminished, normal air movement, No rhonchi, No wheeze, No rales Cardiovascular: Regular rate, Regular Rhythm, Normal S1, Normal S2, No murmurs Abdomen: Soft, Non Tender, Non-Distended, No Hepato-splenomegaly Extremities: No edema, Capillary Refill Less than 3 Seconds Skin: No rashes, No breakdown Musculoskeletal: No Tenderness to Palpation of Joints or Extremities Neurological: Chronically abnormal due to spina bifida, remains unchanged Psych/Mental Status: Normal Affect, Appropriate Weight / BMI Weight Weight: 124 lb Body Mass Index (BMI) 21.9 ABG / Lab / Microbiology Data 05/14/23 05:15 05/16/23 05:55 Laboratory: Laboratory Results - last 24 hr 05/16/23 05:55: Sodium 135 L, Potassium 3.8, Chloride 104, Carbon Dioxide 26.0, Anion Gap 5, BUN 1 L, Creatinine 0.44 L, Estim Creat Clear Calc 150.91, Est GFR (MDRD) Af Amer 258, Est GFR (MDRD) Non-Af 213, BUN/Creatinine Ratio 2.3 L, Glucose 104, Calcium 8.0 L Microbiology: Microbiology 05/09/23 05:20 Urine Catheter - Hannon Urine Culture - Final Citrobacter freundii Proteus mirabilis D/C Instructions Discharge Diet: No restrictions Call your doctor if you observe: Fever of 101 or Higher, Shortness of breath, Dizziness, Fainting spells, Swelling in the ankles, Chest pain and Increased palpitations (irregular heartbeat) Meaningful Use Info Meaningful Use Diagnoses (Choose all that apply): None applicable Discharge Plan Admission Admit Date/Time: 05/09/23 09:06 Attending Provider: Ace Moncada Primary Care Provider: Clifford Estes Consulting Providers: Richard Palacio Instructions Additional Instructions / Restrictions: Have lab work drawn by the home health nurse in 3 to 5 days to monitor your renal function and electrolytes Discharge Orders/Prescriptions Prescriptions: New tamsulosin 0.4 mg Capsule 0.4 mg PO DAILY@1730 30 Days Qty: 30 0RF erythromycin ethylsuccinate [EryPed 200] 200 mg/5 mL Suspension For Reconstitution 100 mg PO TIDAC 30 Days Qty: 225 0RF metoclopramide HCl [Reglan] 5 mg tablet 5 mg PO Q6H 30 Days Qty: 120 0RF Continued Linzess 72 mcg capsule 290 mcg PO DAILY Patient Comments: TAKE 1 CAP BY MOUTH ONCE DAILY ON EMPTY STOMACH SWALLOW WHOLE DO NOT CHEW/CRUSH baclofen 5 MG tablet 5 mg PO TID Rx Instructions: Hold for sedation/lethargy Referrals / Follow Up: Kaden Haynes DO [Med Staff - Active Staff] - 09/30/23 3:15 pm Clifford Estes MD [Primary Care Provider] - 05/20/23 2:20 pm Disposition Disposition (needs filled in before D/C Order can be placed): Home Health Service Charges/Coding Visit Charges Inpatient E&M: 76566 Disch Hosp >30min 05/16/23 1331 <Electronically signed by Ace Moncada MD> Cosigner Signature (if applicable): CC: Dr. Ace Moncada MD; Dr. Clifford Estes MD~ Signed [facility] Work Phone: Discharge summary Author Conchita [facility] August 15, 2023 3:53pm Note Date/Time August 15, 2023 3: 53pm [facility] Medical Records Department [address] [place] [address] Instructions for Home/Discharge Instructions 08/15/23 1552 MR#: [id number] Acct: [id number] Name: JIAN ALTAMIRANO Rep #:[id number] : 1965 57 From: Conchita Rankin MD PCP: Dr. Clifford Estes MD Status:ADM I N Discharge Instructions Diet Discharge Diet: Soft diet (advance slowly as tolerated) Activity Discharge Activity: Return to Normal Activity Weight Bearing Status: Weight bearing as tolerated Dressing / Incision Call your doctor if you observe: Fever of 101 or Higher, Shortness of breath, Dizziness and Chest pain Follow Up Care Test Results: Test results from this visit will be discussed in further detail at your follow- up appointment, if applicable. Discharge Plan Admission Admit Date/Time: 08/09/23 14:30 Primary Reason for Your Visit: small bowel obstruction Attending Provider: Conchita Rankin Primary Care Provider: Clifford Estes Consulting Providers: Richard Palacio Instructions Patient Instructions: Small Bowel Obstruction Discharge Orders/Prescriptions Prescriptions: Continued baclofen 5 MG tablet 5 mg PO TID Patient Comments: Hold for sedation/lethargy metoclopramide HCl [Reglan] 5 mg tablet 5 mg PO Q6H 30 Days Qty: 120 0RF Linzess 290 mcg capsule 290 mcg PO DAILY omeprazole 20 mg capsule,delayed release(DR/EC) 20 mg PO DAILY Motegrity 2 mg tablet 2 mg PO DAILY tamsulosin 0.4 mg Capsule 0.4 mg PO 1730 Referrals / Follow Up: Clifford Estes MD [Primary Care Provider] - Within 1 Week Disposition Disposition (needs filled in before D/C Order can be placed): Home, Self Care 08/15/23 1553<Electronically signed by Conchita Rankin MD>Conchita Rankin MD CC: Dr. Richard Palacio DO; Dr. Clifford Estes MD ~ Signed [facility] Work Phone: Discharge summary Author [facility] August 15, 2023 4:09pm Note Date/Time August 15, 2023 3: 53pm [facility] Medical Records Department [address] [place] [address] Discharge Summary 08/15/231552 MR#: [id number] Acct: [id number] Name: JIAN ALTAMIRANO Rep #:[id number] : 1965 57 From: Conchita Rankin MD PCP: Dr. Clifford Estes MD Status:ADM I N [id number] Providers Date of Admission: 08/09/23 Date of Discharge: 08/15/23 Primary Care Physician: Dr. Clifford Estes MD Reason For Visit: SMALL BOWL OBSTRUCTION Diagnosis Discharge Diagnosis (1) Small bowel obstruction: Status: Acute Code(s): K56.609 - Unspecified intestinal obstruction, unspecified as to partial versus complete obstruction (2) Leukocytosis: Status: Acute Code(s): D72.829 - Elevated white blood cell count, unspecified Qualifiers: Leukocytosis type: unspecified Qualified Code(s): D72.829 - Elevated white blood cell count, unspecified (3) Hyponatremia: Status: Acute Code(s): E87.1 - Hypo-osmolality and hyponatremia (4) Hypokalemia: Status: Resolved Code(s): E87.6 - Hypokalemia Medications at Discharge Home Medications baclofen 5 mg tablet 5 mg PO TID MUSCLE SPASMS 07/21/22 metoclopramide HCl 5 mg tablet (Reglan) 5 mg PO Q6H 30 days #120 tabs 05/16/23 linaclotide 290 mcg capsule (Linzess) 290 mcg PO DAILY IRRITABLE BOWELS 08/09/23 omeprazole 20 mg capsule,delayed release 20 mg PO DAILY ACID REFLUX 08/09/23 prucalopride 2 mg tablet (Motegrity) 2 mg PO DAILY CHRONIC CONSTIPATION 08/09/23 tamsulosin 0.4 mg capsule 0.4 mg PO 1730 PROSTATE 08/09/23 Hospital Course Operations None Procedures None Summary of Care Provided Minutes Spent on Discharge: 55 Hospital Course: JIAN ALTAMIRANO, is a 57 M with a PMH as outlined who presents via the ED on08/09/2023 with abdominal pain. He had associated vomiting and abdominal distension; he had had similar episodes in the past but it had worsened. this time. He came in to the ED and abdominal imaging done showed evidence of small bowel obstruction, with significant distension of hte stomach and proximal smallbowel with distal transition. NG tube was inserted. General surgery was reticentabout having patient admitted here due to his history of SOFT SHOE DANCER shunt. Patient was therefore to be transfered to [facility]. He was accepted at [facility] pending bed availability. He was eventually admitted to [facility] because of no bed availability at [facility]. He was intially kept NPO; abdominal pain resolved and he felt much better. He started passing gas. He was started on a clear liquid diet which he tolerated. He was advanced to a transitional diet which he also tolerated and did well. On the day of discharge, 08/15/2023, patient tolerated both breakfast and lunch on the transitional diet. He remained stable and requested to be discharged home. There was no longer any need for transfer because he was no longer having abdominal pain, and was passing gas and tolerating a diet. He remained stable and was discharged home on 08/15/2023. He is to follow up with his PCP within one week. He is to advance his diet very slowly as tolerated. Patient seen and examined. He feels well and has no complaints. He had tolerated breakfast and subsequently tolerated lunch. He denied any nausea vomiting or abdominal pain. Review of systems otherwise negative. Labs and vitals reviewed. Home meds reviewed and reconciled. Physical Exam Const alert, oriented x3 and no apparent distress General Appearance: cooperative and comfortable Orientation / Consciousness: awake Exam Limitations: no limitations HEENT normocephalic, head/scalp atraumatic, hearing grossly normal bilaterally and moist oral mucous membranes Mouth: oral and palatal mucosa normal Eyes PERRL Neck no lymphadenopathy Resp normal respiratory effort, no retractions, no use of accessory muscles and clearto auscultation bilaterally Cardio regular rate, regular rhythm, S1 normal heart sound and S2 normal heart sound GI normal to inspection, nondistended, normoactive bowel sounds, soft to palpation,non-tender and non-distended Extremity normal to inspection Skin no rashes or lesions noted Neuro oriented x3 and CN's II-XII intact bilaterally Sensorium / Orientation: awake and alert Motor Exam: strength 5/5 throughout Psych affect normal Weight / BMI Weight Weight: 125 lb Body Mass Index (BMI) 22.1 ABG / Lab / Microbiology Data 08/14/23 06:30 08/14/23 06:30 D/C Instructions Discharge Diet: Soft diet (advance slowly as tolerated) Discharge Activity: Return to Normal Activity Weight Bearing Status: Weight bearing as tolerated Call your doctor if you observe: Fever of 101 or Higher, Shortness of breath, Dizziness and Chest pain Meaningful Use Info Meaningful Use Diagnoses (Choose all that apply): None applicable Discharge Plan Admission Admit Date/Time: 08/09/23 14:30 Primary Reason for Your Visit: small bowel obstruction Attending Provider: Conchita Rankin Primary Care Provider: Clifford Estes Consulting Providers: Richard Palacio Instructions Patient Instructions: Small Bowel Obstruction Discharge Orders/Prescriptions Prescriptions: Continued baclofen 5 MG tablet 5 mg PO TID Patient Comments: Hold for sedation/lethargy metoclopramide HCl [Reglan] 5 mg tablet 5 mg PO Q6H 30 Days Qty: 120 0RF Linzess 290 mcg capsule 290 mcg PO DAILY omeprazole 20 mg capsule,delayed release(DR/EC) 20 mg PO DAILY Motegrity 2 mg tablet 2 mg PO DAILY tamsulosin 0.4 mg Capsule 0.4 mg PO 1730 Referrals / Follow Up: Clifford Estes MD [Primary Care Provider] - Within 1 Week Disposition Disposition (needs filled in before D/C Order can be placed): Home, Self Care Charges/Coding Visit Charges Inpatient E&M: 27165 Disch Hosp >30min 08/15/23 1609 <Electronically signed by Conchita Rankin MD> Cosigner Signature (if applicable): CC: Dr. Conchita Rankin MD; Dr. Clifford Estes MD~ Signed [facility] Work Phone: Discharge summary Author London Braden [facility] September 22, 2023 1:23pm Note Date/Time September 22, 2023 1 :23pm [facility] Medical Records Department [address] [place] [address] Discharge Summary 09/22/23 1319 MR#: [id number] Acct: [id number] Name: JIAN ALTAMIRANO Rep #:[id number] : 1965 57 From: London Thompson PCP: Dr. Clifford Estes MD Status:ADM I N Location: [place] [address] Providers Date of Admission: 09/20/23 Date of Discharge: 09/22/23 Primary Care Physician: Dr. Clifford Estes MD Reason For Visit: UTI, SUBACUTE COVID-19 AND HYPONATREMIA OF 124 POA Diagnosis Discharge Diagnosis (1) Complicated UTI (urinary tract infection): Status: Acute Code(s): N39.0 - Urinary tract infection, site not specified Plan: CAUTI. Catheter changed. Antibiotics with ceftriaxone. Await final urine culture results. (2) COVID-19: Status: Acute Code(s): U07.1 - COVID-19 Plan: On room air. Chest x-ray showed no pneumonia. No treatment for COVID-19 indicated at this time. Positive test on the . Patient will need to quarantine through the . Follow with PCP. Patient might benefit from booster COVID injection with multiple variants (3) Acute hyponatremia: Status: Acute Code(s): E87.1 - Hypo-osmolality and hyponatremia Plan: Sodium is 129 for last 2 days. I think he might have isovolemic hyponatremia. Follow with PCP. Plan Chronic conditions * History of recurrent ileus: Patient has scans that look like small bowel obstruction but generally respond to conservative measures. Seems to be more consistent with an ileus. Patient has been admitted here on numerous occasions as he surgeons in [place] do not feel that is an actual small bowel obstruction. Patient has responded well to conservative measures. General surgery here has repeatedly declined to be involved with the patient's care as it is beyond their scope given the patient's history of SOFT SHOE DANCER shunt. Currently no ongoing issues at this time but would advise caution with narcotics given this patient's history.Patient sister asking to be able to give him enemas. I feel that would be fine. I would defer to her as she is very intimately involved with his care at home. She is actually administered suppositories and enemas for him in the hospital during previous encounters. * Follow-up with Dr. Steve Nichols surgeon. * History of normal pressure hydrocephalus since ; status post SOFT SHOE DANCER shunt with seizure disorder - Continue home medications as previous. * History of BPH, bladder diverticulum and bladder stones - Stable. DVT prophylaxis - Lovenox 40 mg subcu daily. I believe the patient's sister was a former nurse, Mrs. Lesli Bansal multiple health conditions including recurrent UTI from stone and indwelling Hannon catheter. Patient also COVID-19 infection follow with PCP. He also has recurrent ileus and requires suppositories and enema. Her sister takes care of it. Follow-up with surgeon. Discharge medication reconciliation done. Discharge follow-up instructions completed. Discharge process discussed with the patient and all questions wereanswered to patient's satisfaction. Follow with PCP in 1 to 2 weeks Total time spent, exact 35 minutes on discharge meds reconciliation, examination, coordination of care with nurses and ancillary staff, review of imaging and blood test and discussion with the patient on follow-up instructions. Medications at Discharge Home Medications baclofen 5 mg tablet 5 mg PO TID MUSCLE SPASMS 07/21/22 linaclotide 290 mcg capsule (Linzess) 290 mcg PO DAILY IRRITABLE BOWELS 08/09/23 omeprazole 20 mg capsule,delayed release 20 mg PO DAILY ACID REFLUX 08/09/23 prucalopride 2 mg tablet (Motegrity) 2 mg PO DAILY CHRONIC CONSTIPATION 08/09/23 tamsulosin 0.4 mg capsule 0.4 mg PO 1730 PROSTATE 08/09/23 metoclopramide HCl 5 mg tablet (Reglan) 5 mg PO Q6H PRN nausea and vomiting 09/20/23 bisacodyl 10 mg rectal suppository 10 mg [place] DAILY PRN Constipation #0 ea 09/22/23 ciprofloxacin HCl 500 mg tablet 500 mg PO BID #10 tabs 09/22/23 Physical Exam Narrative Seen and examined. Patient is states no abdominal pain. Patient had good bowel movement. Physical exam General: Awake. Oriented x3. HEENT: Atraumatic, PERRLA, EOMI, Normocephalic Oral: No Gingival or Mucosal Lesions/ Ulcerations Neck: Supple, No JVD, Negative Carotid Bruits Lungs: Air entry diminished in bilateral lung bases. No crepitation/rhonchi. On room air. Cardiovascular: Regular rate, Regular Rhythm, Normal S1, Normal S2, No murmurs Abdomen: Abdominal surgical scar. Bowel Sounds Present, Soft, Non Tender, Non-Distended : No renal angle tenderness. No suprapubic tenderness. Extremities: No edema, Capillary Refill Less than 3 Seconds Skin: No rashes, No breakdown Musculoskeletal: Moderate to severe atrophy of muscles of extremity. No Tenderness to Palpation of Joints or Extremities Neurological: Cranial nerves II-XII grossly intact, DTR 2+/4. No acute focal neurological deficit. Psych/Mental Status: Flat affect. Medical Records Data Medical Nutrition Assessment Dietitian: Malnutrition Criteria Met Start: 09/21/23 14:54 Freq: Status: Active Protocol: Document 09/21/23 14:54 RMA (Rec: 09/21/23 14:54 RMA [id number]) Nutrition Malnutrition Evidence of Malnutrition Exists Yes Malnutrition (severe): Chronic Evidenced By Suboptimal Energy Intake ( Severe),Weight Loss (Severe) Intake Problem Inadequate Oral Intake Etiology related to altered GI function Signs/Symptoms as evidenced by ~14% unintentional weight loss x less than 2 months Status Active Problem Clinical Problem Chronic Disease or Condition Related Malnutrition Etiology Severe protein-calorie malnutrition in the context of chronic disease related to inadequate oral intake and altered GI function/recurrent ileus Signs/Symptoms as evidenced by BMI 18.8, ~14% weight loss x less than 2 months and PO meeting less than 50% estimated nutrition needs x past 1 month Status Active Problem Recommendation Dietitian Recommendations/Changes Will liberalize diet to regular w/ fiber-restriction given recurrent ileus/ obstructions. Will add ensure compact TID w/ meals as tolerated. Additional ONS as needed. Reweigh patient as able for further assessment. Weight / BMI Weight Weight: 106 lb 0.677 oz Body Mass Index (BMI) 18.8 ABG / Lab / Microbiology Data 09/22/23 06:20 09/22/23 06:20 Laboratory: Laboratory Results - last 24 hr 09/20/23 19:35: Diff Path Review Reviewed 09/21/23 04:36: Diff Path Review Reviewed 09/22/23 06:20: WBC 6.9, RBC 3.88 L, Hgb 11.4 L, Hct 32.9 L, MCV 84.8, MCH 29.4,MCHC 34.7, RDW Std Deviation 40.9, RDW Coeff of Frieda 13.2, Plt Count 327, MPV 9.7, Immature Gran % (Auto) 0.300, Neut % (Auto) 69.4, Lymph % (Auto) 18.0 L, [place] % (Auto) 11.3 H, Eos % (Auto) 0.9, Baso % (Auto) 0.1, Absolute Neuts (auto)4.8, Absolute Lymphs (auto) 1.24, Nucleated RBC % 0, Sodium 129 L, Potassium 3.5, Chloride 98, Carbon Dioxide 24.0, Anion Gap 7, BUN 5 L, Creatinine 0.48 L, Estim Creat Clear Calc 118.30, Est GFR (MDRD) Af Amer 233, Est GFR (MDRD) Non-Af192, BUN/Creatinine Ratio 10.4, Glucose 111 H, Calcium 6.6 L Microbiology: Microbiology 09/20/23 19:45 Urine Catheter - Hannon Urine Culture - Final Escherichia coli Proteus mirabilis 09/20/23 19:29 Nasal Secretion SARS-CoV-2 Antigen (Rapid) - Final SARS-CoV-2 (COVID 19) D/C Instructions Discharge Diet: Light diet - advance as tolerated ( Soft diet easy to chew, protein rich diet.) and - Weight Bearing Status: Partial weight bearing Call your doctor if you observe: Fever of 101 or Higher, Coldness, Increased Pain, Numbness or Tingling, Change in Color, Inability to urinate, Inability to have a bowel movement, Shortness of breath, Dizziness, Fainting spells, Swellingin the ankles, Chest pain, Prolonged hiccupping, Increased palpitations (irregular heartbeat) and Calf discomfort When: IN 2 WEEKS Meaningful Use Info Meaningful Use Diagnoses (Choose all that apply): None applicable Discharge Plan Admission Admit Date/Time: 09/20/23 21:57 Attending Provider: London Braden Primary Care Provider: Clifford Estes Consulting Providers: Gavino Pena; Richard Palacio Instructions Additional Instructions / Restrictions: Follow-up in [facility] urologist for kidney stones Discharge Orders/Prescriptions Prescriptions: New bisacodyl 10 mg Suppository 10 mg [place] DAILY PRN (Reason: Constipation) Qty: 0 0RF ciprofloxacin HCl 500 mg tablet 500 mg PO BID Qty: 10 0RF Continued baclofen 5 MG tablet 5 mg PO TID Patient Comments: Hold for sedation/lethargy Linzess 290 mcg capsule 290 mcg PO DAILY omeprazole 20 mg capsule,delayed release(DR/EC) 20 mg PO DAILY Motegrity 2 mg tablet 2 mg PO DAILY tamsulosin 0.4 mg Capsule 0.4 mg PO 1730 metoclopramide HCl [Reglan] 5 mg tablet 5 mg PO Q6H PRN (Reason: nausea and vomiting) Referrals / Follow Up: Chang Grant MD [Med Staff - Active Staff] - Within 1 Month (for recurrent ileus) Clifford Estes MD [Primary Care Provider] - Within 2 Weeks Disposition Disposition (needs filled in before D/C Order can be placed): Home Health Service Charges/Coding Visit Charges Inpatient E&M: 20807 Disch Hosp >30min 09/22/23 1323 <Electronically signed by London Braden MD> Cosigner Signature (if applicable): CC: Dr. London Braden MD; Dr. Clifford Estes MD~ Signed [facility] Work Phone: Evaluation note* Diagnosis Small bowel obstruction (HCC)- Primary Unspecified intestinal obstruction documented in this encounter [facility] note* Diagnosis Urinary retention- Primary Retention of urine, unspecified documented in this encounter [facility] note* Diagnosis Calculus of urinary bladder documented in this encounter [facility] note* Diagnosis Chronic constipation Unspecified constipation documented in this encounter [facility] note* Diagnosis Screening for genitourinary condition Screening for other and unspecified genitourinary condition documented in this encounter [facility] note* Diagnosis Small bowel obstruction (HCC) Unspecified intestinal obstruction Urinary retention Retention of urine, unspecified [facility] [place] [facility]* Diagnosis Onset Date Resolution Status Hypokalemia resolved Hyponatremia resolved Small bowel obstruction reso lved [facility] Work Phone: Evaluation note* Diagnosis Chronic constipation Unspecified constipation documented in this encounter [facility] note* Diagnosis Spina bifida with hydrocephalus, unspecified spinal region (HCC)- Primary documented in this encounter [facility] note* Diagnosis Neurogenic bladder- Primary Neurogenic bladder, NOS documented in this encounter [facility] note* Diagnosis Neurogenic bladder- Primary Neurogenic bladder, NOS documented in this encounter [facility] note* Diagnosis Chronic constipation- Primary Unspecified constipation documented in this encounter [facility] noteNo assessment information availableWCosho[facility] Work Phone: Evaluation note* Diagnosis Spina bifida with hydrocephalus, unspecified spinal region (HCC)- Primary Acquired deformity of ankle and foot, unspecified laterality Neurogenic bladder Neurogenic bladder, NOS SBO (small bowel obstruction) (HCC) Unspecified intestinal obstruction Congenital hydrocephalus (HCC) Congenital hydrocephalus History of brain shunt documented in this encounter [facility] note* Diagnosis Onset Date Resolution Status Acute hyponatremia acute Gastroparesis acute History of urinary retention acute Ileus due to infection acute Urinary tract infection acut e [facility] Work Phone: Evaluation note* Diagnosis SBO (small bowel obstruction) (HCC)- [...] dermatitis Dermatomycosis, unspecified [facility] [place] [facility]* Diagnosis Thrombocytosis- Primary Essential thrombocythemia Hyperkalemia Hyperpotassemia documented [facility] [place] [facility]* Diagnosis Abnormal urine color- Primary Other nonspecific finding on examination of urine Urinary catheter in place Other postprocedural status documented in this [facility] [place] [facility]* Diagnosis Onset Date Resolution Status Gastroparesis acute Acute hyponatremia resolved Ileus due to infection resol debbie Urinary tract infection reso lved Fever acute Hyponatremia acute UTI (urinary tract infection) acute [facility] Work Phone: Evaluation note* Diagnosis Spina bifida with hydrocephalus, unspecified spinal region (HCC)- Primary Congenital hydrocephalus (HCC) Congenital hydrocephalus documented [facility] [place] [facility]* Diagnosis Urinary tract infection without hematuria, site unspecified- Primary Hyponatremia Hyposmolality and/or hyponatremia Urinary catheter in place Other postprocedural status Neurogenic bladder Neurogenic bladder, NOS Spina bifida with hydrocephalus, unspecified spinal region (HCC) [facility] [place] [facility]* Diagnosis Thrombocytosis- Primary Essential thrombocythemia Hyponatremia Hyposmolality and/or hyponatremia [facility] [place] [facility]* Diagnosis Onset Date Resolution Status Gastroparesis acute Acute hyponatremia resolved Ileus due to infection resol debbie Urinary tract infection reso lved UTI (urinary tract infection) resolved Abdominal pain acute Bladder diverticulum acute Catheter-associated urinary tract infection acute Ileus acute Inguinal hernia acute Nausea and vomiting acute [facility] Work Phone: Evaluation note* Diagnosis Onset Date Resolution Status Gastroparesis acute Acute hyponatremia resolved Ileus due to infection resol debbie Urinary tract infection reso lved UTI (urinary tract infection) resolved Abdominal pain resolved Ileus resolved Nausea and vomiting resolved Abdominal pain, acute, generalized acute Bladder diverticulum acute Bladder stones acute Gastric paresis acute Nausea and vomiting in adult patient acute Sinus tachycardia acute Small bowel obstruction acut e [facility] Work Phone: Evaluation note* Diagnosis Chronic constipation- Primary Unspecified constipation Spina bifida with hydrocephalus, unspecified spinal region (HCC) Redundant colon Other congenital anomalies of intestine History of small bowel obstruction Personal history of other diseases of digestive system [facility] [place] [facility]* Diagnosis Neurogenic bladder- Primary Neurogenic bladder, NOS [facility] [place] [facility]* Diagnosis Screening for genitourinary condition Screening for other and unspecified genitourinary condition documented in this encounter [facility] note* Diagnosis Onset Date Resolution Status Gastroparesis acute Acute hyponatremia resolved Ileus due to infection resol debbie Urinary tract infection reso lved UTI (urinary tract infection) resolved Abdominal pain resolved Ileus resolved Nausea and vomiting resolved Nausea and vomiting in adult patient resolved Sinus tachycardia resolved Small bowel obstruction reso ed [facility] Work Phone: Evaluation note* Diagnosis Onset Date Resolution Status UTI (urinary tract infection) resolved Abdominal pain resolved Ileus resolved Nausea and vomiting resolved Nausea and vomiting in adult patient resolved Sinus tachycardia resolved Small bowel obstruction reso lved [facility] Work Phone: Evaluation note* Diagnosis Onset Date Resolution Status Abdominal distension acute Hyponatremia acute Ileus acute Kidney stone on right side a cute Normal pressure hydrocephalus acute UTI (urinary tract infection) acute SOFT SHOE DANCER (ventriculoperitoneal) shunt status acute Chronic indwelling Hannon catheter chronic [facility] Work Phone: Evaluation note* Diagnosis Onset Date Resolution Status Abdominal distension acute Bladder stones acute Hyponatremia acute Ileus acute Kidney stone on right side a cute Normal pressure hydrocephalus acute UTI (urinary tract infection) acute SOFT SHOE DANCER (ventriculoperitoneal) shunt status acute Chronic indwelling Hannon catheter chronic [facility] Work Phone: Evaluation note* Diagnosis Onset Date Resolution Status Bladder stones acute Kidney stone on right side a cute Chronic indwelling Hannon catheter chronic Abdominal distension resolve d Hyponatremia resolved Ileus resolved UTI (urinary tract infection) resolved TRESA (acute kidney injury) ac [place] Leukocytosis acute SBO (small bowel obstruction) acute Urinary tract infection acut e BPH (benign prostatic hyperplasia) acute Chronic intestinal pseudo-obstruction acute Recurrent urinary tract infection acute SBO (small bowel obstruction) acute Urinary tract infection acut e Chronic hyponatremia chronic Hypokalemia resolved [facility] Work Phone: Evaluation note* Diagnosis Renal insufficiency- Primary Unspecified disorder of kidney and ureter [facility] [place] [facility]* Diagnosis Acute pseudo-obstruction of bowel- Primary Other specified intestinal obstruction Gastroparesis Spina bifida with hydrocephalus, unspecified spinal region (HCC) Hypokalemia Hypopotassemia documented [facility] [place] [facility]* Diagnosis Hyponatremia- Primary Hyposmolality and/or hyponatremia documented [facility] [place] [facility]* Diagnosis Hyponatremia- Primary Hyposmolality and/or hyponatremia documented in this encounter [facility] note* Diagnosis Constipation, unspecified constipation type- Primary Redundant colon Other congenital anomalies of intestine H/O small bowel obstruction Personal history of other diseases of digestive system Spina bifida with hydrocephalus, unspecified spinal region (HCC) Neurogenic bladder Neurogenic bladder, NOS [facility] [place] [facility]* Diagnosis Hydrocephalus, unspecified type (HCC)- Primary [...] Thrombocytosis Essential thrombocythemia [facility] [place] [facility]* Diagnosis Hyponatremia- Primary Hyposmolality and/or hyponatremia [facility] [place] [facility]* Diagnosis Onset Date Resolution Status Hypokalemia resolved Recurrent urinary tract infection resolved SBO (small bowel obstruction) resolved Urinary tract infection reso lved Hydrocephalus acute Hyponatremia acute Leukocytosis acute Small bowel obstruction acut e Chronic indwelling Hannon catheter chronic [facility] Work Phone: Evaluation note* Diagnosis Onset Date Resolution Status Hypokalemia resolved Recurrent urinary tract infection resolved SBO (small bowel obstruction) resolved Urinary tract infection reso lved Hydrocephalus acute Hyponatremia acute Leukocytosis acute Small bowel obstruction acut e Chronic indwelling Hannon catheter chronic Hypokalemia resolved [facility] Work Phone: Evaluation note* Diagnosis Spina bifida with hydrocephalus, unspecified spinal region (HCC) [facility] [place] [facility]* Diagnosis Bladder spasm- Primary Other specified disorders of bladder [facility] [place] [facility]* Diagnosis Onset Date Resolution Status Hypokalemia resolved Leukocytosis resolved Small bowel obstruction reso lved Acute hyponatremia acute Complicated UTI (urinary tract infection) acute COVID-19 acute Leukocytosis acute [facility] Work Phone: Evaluation note* Diagnosis Onset Date Resolution Status Hypokalemia resolved Leukocytosis resolved Small bowel obstruction reso lved Acute hyponatremia acute Complicated UTI (urinary tract infection) acute COVID-19 acute Leukocytosis acute Chronic indwelling Hannon catheter chronic [facility] Work Phone[facility] [place] [facility]* Diagnosis Acute cystitis without hematuria- Primary Acute cystitis Hyponatremia Hyposmolality and/or hyponatremia Leukocytosis, unspecified type Gastroparesis COVID-19 documented in this encounter [facility] note* Diagnosis Hyponatremia- Primary Hyposmolality and/or hyponatremia documented in this encounter [facility] note* Diagnosis Onset Date Resolution Status Hypokalemia resolved Leukocytosis resolved Small bowel obstruction reso lved Chronic indwelling Hannon catheter chronic Leukocytosis resolved [facility] Work Phone: Evaluation note* Diagnosis Recurrent UTI (urinary tract infection)- Primary Urinary tract infection, site not specified documented in this encounter [facility] note* Diagnosis Neurogenic bladder- Primary Neurogenic bladder, NOS 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) Bladder stone Other calculus in bladder Recurrent UTI Urinary tract infection, site not specified S/P SOFT SHOE DANCER shunt Presence of cerebrospinal fluid drainage device 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 documented in this encounter [facility] note* Diagnosis Screening for genitourinary condition Screening for other and unspecified genitourinary condition documented in this encounter [facility] note* Diagnosis Diverticulum of bladder- Primary Bladder stones Other calculus in bladder Diverticulum of bladder Bladder stones Other calculus in bladder documented in this encounter [facility] note* Diagnosis Neurogenic bowel- Primary Diverticulum of bladder Bladder stones Other calculus in bladder documented in this encounter [facility] note* Diagnosis 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) Diverticulum of bladder Bladder stones Other calculus in bladder documented in this encounter [facility] note* Diagnosis Diverticulum of bladder Bladder stones Other calculus in bladder Diverticulum of bladder Bladder stones Other calculus in bladder documented in this encounter [facility] note* Diagnosis Pre-op evaluation- Primary Preoperative examination, unspecified Hydrocephalus, unspecified type (HCC) Spina bifida with hydrocephalus, unspecified spinal region (HCC) Gastroparesis Neurogenic bladder Neurogenic bladder, NOS Diverticulum of bladder Bladder stones Other calculus in bladder * Assessment & Plan Note - Anna Ayoub PA-C - 04/05/2024 2:10 PM EDT Associated Problem(s): Neurogenic bladder -hannon catheter -scheduled for surgery * Assessment & Plan Note - Anna Ayoub PA-C - 04/05/2024 2:09 PM EDT Associated Problem(s): Gastroparesis -on Linzess, Reglan, and Motegrity * Assessment & Plan Note - Anna Ayoub PA-C - 04/05/2024 2:08 PM EDT Associated Problem(s): Spina bifida (HCC) -on baclofen -follows with neurology * Assessment & Plan Note - Anna Ayoub PA-C - 04/05/2024 2:08 PM EDT Associated Problem(s): Hydrocephalus (HCC) -s/p shunt placement -follows with neurology [facility] [place] [facility]* Diagnosis Screening for genitourinary condition Screening for other and unspecified genitourinary condition Diverticulum of bladder Bladder stones Other calculus in bladder [facility] [place]* Diagnosis Screening for genitourinary condition- Primary Screening for other and unspecified genitourinary condition Diverticulum of bladder Bladder stones Other calculus in bladder Spina bifida with hydrocephalus, unspecified spinal region (HCC) Diverticulum of bladder Bladder stones Other calculus in bladder [facility] [place] [facility] Diagnosis Non-recurrent bilateral inguinal hernia without obstruction or gangrene- Primary Diverticulum of bladder Bladder stones Other calculus in bladder [facility] [place] [facility]* Diagnosis Neurogenic bladder- Primary Neurogenic bladder, NOS Diverticulum of bladder Bladder stones Other calculus in bladder [facility] [place] [facility]* Diagnosis Screening for genitourinary condition Screening for other and unspecified genitourinary condition documented in this encounter [facility] note* Diagnosis Urinary retention- Primary Retention of urine, unspecified Neurogenic bladder Neurogenic bladder, NOS Spina bifida with hydrocephalus, unspecified spinal region (HCC) documented in this encounter [facility] note* Diagnosis SBO (small bowel obstruction) (HCC)- Primary Unspecified intestinal obstruction documented in this encounter [facility] note* Diagnosis Pre-op evaluation- Primary Preoperative examination, unspecified Hydrocephalus, unspecified type (HCC) Spina bifida with hydrocephalus, unspecified spinal region (HCC) Gastroparesis Neurogenic bladder Neurogenic bladder, NOS Constipation due to neurogenic bowel- Primary SBO (small bowel obstruction) (HCC) Unspecified intestinal obstruction documented in this encounter [facility] note* Diagnosis Pre-op evaluation- Primary Preoperative examination, unspecified Hydrocephalus, unspecified type (HCC) Spina bifida with hydrocephalus, unspecified spinal region (HCC) Gastroparesis Neurogenic bladder Neurogenic bladder, NOS Malodorous urine- Primary Other nonspecific finding on examination of urine documented in this encounter [facility] note* Diagnosis Pre-op evaluation- Primary Preoperative examination, unspecified Hydrocephalus, unspecified type (HCC) Spina bifida with hydrocephalus, unspecified spinal region (HCC) Gastroparesis Neurogenic bladder Neurogenic bladder, NOS Spina bifida with hydrocephalus, unspecified spinal region (HCC) documented in this encounter [facility] note* Diagnosis Pre-op evaluation- Primary Preoperative examination, unspecified Hydrocephalus, unspecified type (HCC) Spina bifida with hydrocephalus, unspecified spinal region (HCC) Gastroparesis Neurogenic bladder Neurogenic bladder, NOS Spina bifida with hydrocephalus, unspecified spinal region (HCC)- Primary Urinary retention Retention of urine, unspecified Bladder diverticulum Diverticulum of bladder Neurogenic bladder Neurogenic bladder, NOS documented in this encounter [facility] note* Diagnosis Pre-op evaluation- Primary Preoperative examination, unspecified Hydrocephalus, unspecified type (HCC) Spina bifida with hydrocephalus, unspecified spinal region (HCC) Gastroparesis Neurogenic bladder Neurogenic bladder, NOS Neurogenic bladder Neurogenic bladder, NOS documented in this encounter [facility] note* Diagnosis Pre-op evaluation- Primary Preoperative examination, unspecified Hydrocephalus, unspecified type (HCC) Spina bifida with hydrocephalus, unspecified spinal region (HCC) Gastroparesis Neurogenic bladder Neurogenic bladder, NOS Neurogenic bladder- Primary Neurogenic bladder, NOS Diverticulum of bladder Bladder stones Other calculus in bladder Spina bifida with hydrocephalus, unspecified spinal region (HCC) [facility] Pre-op evaluation- Primary Preoperative examination, unspecified Hydrocephalus, unspecified type (HCC) Spina bifida with hydrocephalus, unspecified spinal region (HCC) Gastroparesis Neurogenic bladder Neurogenic bladder, NOS Screening for genitourinary condition Screening for other and unspecified genitourinary condition [facility] Diagnosis Pre-op evaluation- Primary Preoperative examination, unspecified Hydrocephalus, unspecified type (HCC) Spina bifida with hydrocephalus, unspecified spinal region (HCC) Gastroparesis Neurogenic bladder Neurogenic bladder, NOS Cloudy urine- Primary Other nonspecific finding on examination of urine Neurogenic bladder Neurogenic bladder, NOS Bladder stone Other calculus in bladder [facility] Author Richard Palacio [facility] August 09, 2023 2:50pm Note Date/Time August 09, 2023 2:46pm [facility] Medical Records Department [address] [place] [address] H&P Exam - Hospitalist 08/09/23 1436 MR#: [id number] Acct: [id number] Name: JIAN ALTAMIRANO Rep #:[id number] : 1965 57 From: Richard Palacio DO PCP: Dr. Clifford Estes MD Status:ADM I N Location: [place] [id number] HPI - General General Date of Admission: 08/09/23 Date of Service: 08/09/23 Chief Complaint: abdominal pain HPI Narrative JIAN ALTAMIRANO, is a 57 M who presents with abdominal pain. Patient was having vomiting abdominal distention. Patient has had similar but this was moresevere, according to his sister at bedside. Patient presents to the emergency room and was noted to have significant distention of the stomach and proximal small bowel with distal transition, suggestive of a small bowel obstruction. AnNG tube was placed in the emergency room the patient had copious amounts of green bilious fluid suctioned. Dr. Grant, general surgery, was contacted and would not feel comfortable managing this patient given his history of SOFT SHOE DANCER shunt. Requested transfer to tertiary facility. [facility] contactedand [facility] was except[facility], however no readily available beds. Patient was emergency room for roughly 6 hours and the hospitalist service was contacted. Irequested them to reach out to [facility] but no available at this time. Patient is to be brought into the hospital with his abdominal issues which may be a small bowel obstruction or an ileus with right surgical availability. If condition worsens. Patient will remain here until he can be safely transferred to a tertiary facility for unless he gets better. [facility] Medical History Bladder diverticulum Bladder stones BPH (benign prostatic hyperplasia) Catheter-associated urinary tract infection Chronic hyponatremia Chronic indwelling Hannon catheter Chronic intestinal pseudo-obstruction Gastroparesis History of urinary retention Hydrocephalus Hypertension Hyponatremia Ileus Inguinal hernia Normal pressure hydrocephalus Seizures Home Medications baclofen 5 mg tablet 5 mg PO TID MUSCLE SPASMS 07/21/22 [History Last Taken 02/20/23] metoclopramide HCl 5 mg tablet (Reglan) 5 mg PO Q6H 30 days #120 tabs 05/16/23 [Rx Last Taken Unknown] linaclotide 290 mcg capsule (Linzess) 290 mcg PO DAILY IRRITABLE BOWELS 08/09/23[History Last Taken Unknown] omeprazole 20 mg capsule,delayed release 20 mg PO DAILY ACID REFLUX 08/09/23 [History Last Taken Unknown] prucalopride 2 mg tablet (Motegrity) 2 mg PO DAILY CHRONIC CONSTIPATION 08/09/23[History Last Taken Unknown] tamsulosin 0.4 mg capsule 0.4 mg PO 1730 PROSTATE 08/09/23 [History Last Taken Unknown] Allergy/AdvReac Type Severity Reaction Status Date / Time Iodinated Contrast Media Allergy Anaphylaxis Verified 05/09/23 03:11 [Iodinated Contrast Media - IV Dye] nitrofurantoin AdvReac Upset Verified 05/09/23 03:11 Stomach Family History Father Heart disease Kidney stones Prostate disease Brother Kidney stones Other Cancer Peptic ulcer disease Surgical History S/P release of urethral stricture S/P SOFT SHOE DANCER shunt SOFT SHOE DANCER (ventriculoperitoneal) shunt status Social History household members: family Smoking Status: Never smoker alcohol intake: never substance use type: does not use ROS ROS Narrative Feeling much better after the ET tube was placed. All review of systems were negative except as mentioned above in the history of present illness and the other review of systems. Vital Signs Vital Signs Vital Signs: 08/09/23 00:18 08/09/23 02:17 08/09/23 04:00 Temperature 36.9 C Temperature Source Temporal Pulse Rate 110 H Respiratory Rate 16 20 H 18 Blood Pressure 137/107 H Blood Pressure Mean 117 Pulse Ox 97 Oxygen Delivery Method Room Air 08/09/23 08:20 08/09/23 11:00 08/09/23 12:55 Temperature 36.3 C L Temperature Source Oral Pulse Rate 89 66 90 Respiratory Rate 16 16 16 Blood Pressure 126/82 H 138/90 H 139/102 H Blood Pressure Mean 96 106 114 Pulse Ox 98 95 95 Oxygen Delivery Method Room Air Room Air Room Air Weight Weight: 56.699 kg Body Mass Index (BMI) 22.1 Physical Exam Const alert and no apparent distress Constitutional Narrative: NG tube in place HEENT normocephalic and head/scalp atraumatic Resp normal respiratory effort, no retractions, no use of accessory muscles and clearto auscultation bilaterally Cardio regular rate, regular rhythm, S1 normal heart sound and S2 normal heart sound GI normal to inspection, nondistended, normoactive bowel sounds, soft to palpation,non-tender and non-distended Extremity normal to inspection Neuro Sensorium / Orientation: awake and alert Results Lab / Micro Data 08/09/23 00:59 08/09/23 00:59 Labs: Laboratory Results - last 24 hr 08/09/23 00:59: WBC 15.4 H, RBC 5.28, Hgb 15.8, Hct 45.5, MCV 86.2, MCH 29.9, MCHC 34.7, RDW Std Deviation 39.1, RDW Coeff of Frieda 12.5, Plt Count 522 H, MPV 9.5, Immature Gran % (Auto) 0.400, Neut % (Auto) 84.5 H, Lymph % (Auto) 7.5 L, [place] % (Auto) 7.2, Eos % (Auto) 0.1, Baso % (Auto) 0.3, Absolute Neuts (auto) 13.0 H, Absolute Lymphs (auto) 1.15, Nucleated RBC % 0, Sodium 127 L, Potassium 4.1, Chloride 92 L, Carbon Dioxide 27.0, Anion Gap 8, BUN 15, Creatinine 0.89, Estim Creat Clear Calc 75.21, Est GFR (MDRD) Af Amer 114, Est GFR (MDRD) Non-Af 94, BUN/Creatinine Ratio 16.9, Glucose 168 H, Lactic Acid 1.0, Calcium 9.2, Total Bilirubin 0.50, Direct Bilirubin 0.16, AST 15, ALT 19, Alkaline Phosphatase 84, Total Protein 8.3 H, Albumin 3.6, Globulin 4.7 H, Lipase 22 Radiology Impression Abdomen/Pelvis CT 08/09/23 00:36 IMPRESSION: Multiple chronic changes. Significant distention of the stomach and proximal small bowel with distal transition, suggestive of a small bowel obstruction. This appearance is similar to prior imaging. Bladder with prominent diverticula. Multiple bladder calcifications. Left-sided diverticulum enters into the left inguinal hernia. Left-sided renal calculus. No hydronephrosis. Chronic left hip dislocation. Electronically Signed: Roscoe Sinha MD at 1:47 EDT , KUB X-Ray 08/09/23 01:52 IMPRESSION: Enteric tube terminating in the stomach. Dilated bowel in the upper abdomen. Electronically Signed: Roscoe Sinha MD at 2:42 EDT , Assessment & Plan Assessment/Plan (1) Small bowel obstruction: PLAN: Versus ileus. Patient has had similar presentations. Unclear as to whichthis is at this time. Continue with NG tube to low intermittent suction. IV fluids, antiemetics, nonnarcotic analgesia. Metoclopramide, scheduled. Patient does get better we can manage him here by clamping NG tube and assessinghis overall response. If he does not get better or certainly if he gets worse, patient still waiting on transfer to the [facility]. (2) Leukocytosis: QUALIFIERS: Leukocytosis type: unspecified Qualified Code(s): D72.829 - Elevated white blood cell count, unspecified PLAN: Suspect reactive due to small bowel obstruction or ileus Monitor (3) Hyponatremia: PLAN: May be due to hypovolemia. Continue with IV fluids and monitor PLAN: Plan Chronic conditions * BPH: Hold tamsulosin for now * Spina bifida: Hold baclofen. * Status post SOFT SHOE DANCER shunt: No active issues. Concern for infection at this time, however, who presents precludes her surgery managing this patient here. VTE prophylaxis: SCDs CODE STATUS: Addressed with the patient's sister at bedside. DNR Comfort Care arrest no intubation.. Charges/Coding Visit Charges Inpatient E&M: 34126 Init Hosp L3 08/09/23 1450 <Electronically signed by Richard Palacio DO> Cosigner Signature (if applicable): CC: Dr. Richard Palacio DO; Dr. Clifford Estes MD~ Signed [facility] Work Phone: Hospital Discharge instructions Additional Instructions Follow-up with your urologist as soon as possible.[facility] Work Phone: Hospital Discharge instructions Additional Instructions He was prescribed antibiotics for urinary tract infection to take 4 times daily. If symptoms worsen such as persistent fevers, vomiting and inability to take medications, come back to ER.[facility] Work Phone: Patient's home Plan of care note* Visit Details Visit Type -SN SOC Discipline -Long-Term Problems Problem Description Start Date Status Goals Interve ntions Discharge Disciplines: Skilled Services 06/17/2024 Active 1 goal linked to scheduled/documen benjy intervention 1 goal intervention scheduled/document ed in this visit Advance Directives Disciplines: Skilled Services 06/17/2024 Active 1 goal linked to scheduled/documen benjy intervention 1 goal intervention scheduled/document ed in this visit Medication Education Disciplines: Skilled Services 06/17/2024 Active 1 goal linked to scheduled/documen benjy intervention 1 goal intervention scheduled/document ed in this visit Sepsis Disciplines: Skilled Services 06/17/2024 Active 1 goal linked to scheduled/documen benjy intervention 1 goal intervention scheduled/document ed in this visit Risk for skin breakdown Disciplines: Skilled Services 06/17/2024 Active 1 goal linked to scheduled/documen benjy intervention 1 goal intervention scheduled/document ed in this visit Physician Specific Parameters Disciplines: Skilled Services 06/17/2024 Active 1 goal linked to scheduled/documen benjy intervention 1 goal intervention scheduled/document ed in this visit Risk for Falls Disciplines: Skilled Services 06/17/2024 Active 1 goal linked to scheduled/documen benjy intervention 1 goal intervention scheduled/document ed in this visit Pain Disciplines: Skilled Services 06/17/2024 Active 1 goal linked to scheduled/documen benjy intervention 1 goal intervention scheduled/document ed in this visit Nutrition/Hydration Disciplines: Skilled Services 06/17/2024 Active 1 goal linked to scheduled/documen benjy intervention 1 goal intervention scheduled/document ed in this visit SN Learning Assessment Disciplines: SN 06/17/2024 Active 1 goal linked to scheduled/documen benjy intervention 1 goal intervention scheduled/document ed in this visit SN Genitourinary disease process Disciplines: SN 06/17/2024 Active 1 goal linked to scheduled/documen benjy intervention 2 goal interventions scheduled/document ed in this visit SN Gastrointestinal Disciplines: SN 06/17/2024 Active 1 goal linked to scheduled/documen benjy intervention 1 goal intervention scheduled/document ed in this visit SN Other significant comorbidities/disea se process Disciplines: SN 06/17/2024 Active 1 goal linked to scheduled/documen benjy intervention 1 goal intervention scheduled/document ed in this visit Goals Goal Associated Problem Outcome Goal Met? Visit Notes Manage discharge planning Description: Patient/caregiver will verbalize understanding of ongoing discharge plan provided related to disease management, arrangements for outpatient and/or community services, obtaining medications, supplies, and DME, as needed throughout certification period. Discharge No Patient/caregiver will make healthcare providers aware of and any changes to Advance Directives throughout certification period Advance Directives No Patient/caregiver will demonstrate ability to obtain, store, identify and administer ordered medications, keep accurate medication list in home, and adhere to medication schedule Description: Patient/caregiver will demonstrate ability to obtain, store, identify and administer ordered medications, keep accurate medication list in home, and adhere to medication schedule by 08/15/24. Medication Education No Patient/caregiver will be able to identify and report symptoms of sepsis Description: Patient/caregiver will be able to identify signs/symptoms of sepsis infection and will verbalize actions to take if suspected by 08/15/24. Sepsis No Manage risk for skin breakdown Description: Patient/caregiver will verbalize and demonstrate understanding of the risks and measures to be taken to monitor and prevent skin breakdown by 07/18/24. Risk for skin breakdown No Patient to maintain parameters within physician-specified ranges throughout certification period Physician Specific Parameters No Manage Risk for falls Description: Patient/caregiver will verbalize knowledge of individualized fall prevention strategies by 08/15/24. Risk for Falls No Manage Pain Description: Patient/caregiver will verbalize knowledge and understanding of appropriate techniques to control pain, including non-pharmacological techniques. Patient will verbalize or demonstrate an acceptable level of pain as evidenced by a pain score of 0/10 and improvement in ability to perform activities of daily living to be achieved by 08/15/24. Pain No Manage Nutrition/Hydration Description: Patient/caregiver will verbalize/demonstrate knowledge of prescribed diet and/or healthy nutrition to be achieved by 07/18/24. Nutrition/Hydration No Demonstrate understanding of education Description: Patient and/or caregiver will verbalize understanding of educational instruction provided throughout certification period. SN Learning Assessment No Patient/Caregiver will verbalize understanding and demonstrate improved management of genitourinary disease/condition. Description: Patient/Caregiver will state understanding of genitourinary disease/condition and be able to teach back management strategies by 08/15/24. SN Genitourinary disease process No Improved management of GI disease/condition Description: Patient/Caregiver will demonstrate understanding of GI education as evidenced by improved management of gastrointestinal disease/condition by 08/15/24. SN Gastrointestinal No Patient/Caregiver will verbalize and/or demonstrate understanding of additional comorbidity(s) or disease process affecting plan of care Description: Patient/Caregiver will verbalize and/or demonstrate understanding of comorbidities effect on health conditions by 07/18/24. SN Other significant comorbidities/disease process No Interventions Intervention Associated Problem/Goal Status Variance Visit Notes Instruct on importance of follow-up appts and continued monitoring with medical provider &/or chronic care clinic Problem:Discharge Goal:Manage discharge planning Completed Education provided on importance of compliance with follow-up appointment(s). Recommendations: None Determine patient's Advance Directive Status Description: Patient does have advance directives. Patient's Advance Directives determined to be available in Home Healthcare DPOA. Problem:Advance Directives Goal:Patient/caregiver will make healthcare providers aware of and any changes to Advance Directives throughout certification period Completed Discussed Advance Directives with Patient and/or Caregiver. Referred patient to Home Care handbook for further information on Healthcare DPOA & Living Will. Medication Education Description: Evaluate/instruct patient/caregiver on obtaining, storing, identifying and administering ordered medications as well as keeping accurate medication list in the home and adhereing to medication schedule Problem:Medication Education Goal:Patient/caregiver will demonstrate ability to obtain, store, identify and administer ordered medications, keep accurate medication list in home, and adhere to medication schedule Completed Patient and Caregiver instructed on adhering to medication schedule. Risk of Sepsis Description: Patient is at risk for sepsis. Monitor closely for s/s of sepsis. Problem:Sepsis Goal:Patient/caregiver will be able to identify and report symptoms of sepsis Completed Instruct on the risks and measures to be taken to prevent skin breakdown Description: Patient's Chapo Score is: 18. A Chapo score <= to 18 indicates risk for skin breakdown. Problem:Risk for skin breakdown Goal:Manage risk for skin breakdown Completed patient and caregiver instructed on maintaining skin integrity including: Routine skin care and Notifying [facility] clinician of changes to skin integrity SPO2 Description: Notify Clifford Estes MD and stop activity if pulse ox is <92% at rest. Problem:Physician Specific Parameters Goal:Patient to maintain parameters within physician-specified ranges throughout certification period Completed Instruct on individual fall risk factors and strategies to prevent falls and injuries caused by falls. Problem:Risk for Falls Goal:Manage Risk for falls Completed SN: Patient and Caregiver instructed on Eliminating Environmental Hazards: Keep pathways clear, Keep rooms and walkways well lit, Wear supportive shoes or non-skid socks and Keep frequently used items within reach Managing Impaired Functional Mobility: Use assistive device(s): wheelchair and "somali cane" and Caregiver to provide assist with: Ambulation, Steps, Transfers and ADL/IADLs Instruct on pain and instruct on strategies to control pain Problem:Pain Goal:Manage Pain Completed patient and caregiver instructed on techniques to control pain including Non-Pharmacological measures; rest. Define patient s appetite/hydration status and implement strategies to improve compliance with prescribed diet and/or healthy nutrition. Problem:Nutrition/Hydra tion Goal:Manage Nutrition/Hydration Completed instructed patient and caregiver on implementing strategies to comply with prescribed diet, healthy nutrition and adequate hydration Instruct and educate on knowledge deficits Problem:SN Learning Assessment Goal:Demonstrate understanding of education Completed patient and caregiver verbalize and/or demonstrate understanding of nursing education completed today. Education methods include: verbal cues. Further education required to improve knowledge and compliance with fall prevention/home safety strategies and genitourinary care management. Catheter- Instruct Patient/Caregiver on use and management of a urinary catheter Description: Urinary catheter is a hannon catheter. Problem:SN Genitourinary disease process Goal:Patient/Caregiver will verbalize understanding and demonstrate improved management of genitourinary disease/condition. Completed patient and caregiver instructed on catheter management including: cleansing around catheter insertion site, positioning the catheter and urinary bag and use of securement device. UTI- Instruct Patient/Caregiver on signs and symptoms of urinary tract infection, treatment measures, measures to prevent reoccurence, and when to notify physician of symptoms Problem:SN Genitourinary disease process Goal:Patient/Caregiver will verbalize understanding and demonstrate improved management of genitourinary disease/condition. Completed patient and caregiver instructed on signs and symptoms of UTI and when to notify physician and preventative measures including: drink plenty of liquids, especially water, cleanse hands before performing personal care and clean genitalia daily and keep area dry to prevent bacteria and yeast growth. Constipation: Instruct Patient/Caregiver on measures to manage constipation Problem:SN Gastrointestinal Goal:Improved management of GI disease/condition Completed patient and caregiver instructed on the following measures to relieve constipation: increase fluids, increase dietary fiber intake and increase activity as tolerated. Instructed on use of stool softener and suppositories. Assess and instruct patient/caregiver on other significant comorbidity(s) or diseae process affecting plan of care Description: Significant comorbidity(s) or diseae process affecting plan of care: Spina Bifida Problem:SN Other significant comorbidities/disease process Goal:Patient/Caregiver will verbalize and/or demonstrate understanding of additional comorbidity(s) or disease process affecting plan of care Completed patient and caregiver instructed on fall precautions, assistance with ADLs. documented in this encounter [facility] home Plan of care note* Visit Details Visit Type -SN ROUTINE Discipline -Long-Term Problems Problem Description Start Date Status Goals Interve ntions Medication Education Disciplines: Skilled Services 06/17/2024 Active 1 goal linked to scheduled/documen benjy intervention 1 goal intervention scheduled/document ed in this visit Sepsis Disciplines: Skilled Services 06/17/2024 Active 1 goal linked to scheduled/documen benjy intervention 1 goal intervention scheduled/document ed in this visit Risk for skin breakdown Disciplines: Skilled Services 06/17/2024 Active 1 goal linked to scheduled/documen benjy intervention 1 goal intervention scheduled/document ed in this visit Physician Specific Parameters Disciplines: Skilled Services 06/17/2024 Active 1 goal linked to scheduled/documen benjy intervention 1 goal intervention scheduled/document ed in this visit Risk for Falls Disciplines: Skilled Services 06/17/2024 Active 1 goal linked to scheduled/documen benjy intervention 1 goal intervention scheduled/document ed in this visit Nutrition/Hydration Disciplines: Skilled Services 06/17/2024 Active 1 goal linked to scheduled/documen benjy intervention 1 goal intervention scheduled/document ed in this visit SN Learning Assessment Disciplines: SN 06/17/2024 Active 1 goal linked to scheduled/documen benjy intervention 1 goal intervention scheduled/document ed in this visit SN Genitourinary disease process Disciplines: SN 06/17/2024 Active 1 goal linked to scheduled/documen benjy intervention 2 goal interventions scheduled/document ed in this visit SN Gastrointestinal Disciplines: SN 06/17/2024 Active 1 goal linked to scheduled/documen benjy intervention 1 goal intervention scheduled/document ed in this visit Goals Goal Associated Problem Outcome Goal Met? Visit Notes Patient/caregiver will demonstrate ability to obtain, store, identify and administer ordered medications, keep accurate medication list in home, and adhere to medication schedule Description: Patient/caregiver will demonstrate ability to obtain, store, identify and administer ordered medications, keep accurate medication list in home, and adhere to medication schedule by 08/15/24. Medication Education No Patient/caregiver will be able to identify and report symptoms of sepsis Description: Patient/caregiver will be able to identify signs/symptoms of sepsis infection and will verbalize actions to take if suspected by 08/15/24. Sepsis No Manage risk for skin breakdown Description: Patient/caregiver will verbalize and demonstrate understanding of the risks and measures to be taken to monitor and prevent skin breakdown by 07/18/24. Risk for skin breakdown No Patient to maintain parameters within physician-specified ranges throughout certification period Physician Specific Parameters No Manage Risk for falls Description: Patient/caregiver will verbalize knowledge of individualized fall prevention strategies by 08/15/24. Risk for Falls No Manage Nutrition/Hydration Description: Patient/caregiver will verbalize/demonstrate knowledge of prescribed diet and/or healthy nutrition to be achieved by 07/18/24. Nutrition/Hydration No Demonstrate understanding of education Description: Patient and/or caregiver will verbalize understanding of educational instruction provided throughout certification period. SN Learning Assessment No Patient/Caregiver will verbalize understanding and demonstrate improved management of genitourinary disease/condition. Description: Patient/Caregiver will state understanding of genitourinary disease/condition and be able to teach back management strategies by 08/15/24. SN Genitourinary disease process No Improved management of GI disease/condition Description: Patient/Caregiver will demonstrate understanding of GI education as evidenced by improved management of gastrointestinal disease/condition by 08/15/24. SN Gastrointestinal No Interventions Intervention Associated Problem/Goal Status Variance Visit Notes Medication Education Description: Evaluate/instruct patient/caregiver on obtaining, storing, identifying and administering ordered medications as well as keeping accurate medication list in the home and adhereing to medication schedule Problem:Medication Education Goal:Patient/caregiver will demonstrate ability to obtain, store, identify and administer ordered medications, keep accurate medication list in home, and adhere to medication schedule Completed Patient and Caregiver instructed on adhering to medication schedule. Risk of Sepsis Description: Patient is at risk for sepsis. Monitor closely for s/s of sepsis. Problem:Sepsis Goal:Patient/caregiver will be able to identify and report symptoms of sepsis Completed Instruct on the risks and measures to be taken to prevent skin breakdown Description: Patient's Chapo Score is: 18. A Chapo score <= to 18 indicates risk for skin breakdown. Problem:Risk for skin breakdown Goal:Manage risk for skin breakdown Completed patient and caregiver instructed on maintaining skin integrity including: The need for every 1-2 hour turns, position changes, and maintaining activity as tolerated and Routine skin care SPO2 Description: Notify Clifford Estes MD and stop activity if pulse ox is <92% at rest. Problem:Physician Specific Parameters Goal:Patient to maintain parameters within physician-specified ranges throughout certification period Completed Instruct on individual fall risk factors and strategies to prevent falls and injuries caused by falls. Problem:Risk for Falls Goal:Manage Risk for falls Completed SN: Patient instructed on Eliminating Environmental Hazards: Keep pathways clear and Keep rooms and walkways well lit Managing Impaired Functional Mobility: Use assistive device(s): wheelchair and Caregiver to provide assist with: ADL/IADLs Define patient s appetite/hydration status and implement strategies to improve compliance with prescribed diet and/or healthy nutrition. Problem:Nutrition/Hydr ation Goal:Manage Nutrition/Hydration Completed instructed patient and caregiver on implementing strategies to comply with healthy nutrition and adequate hydration Instruct and educate on knowledge deficits Problem:SN Learning Assessment Goal:Demonstrate understanding of education Completed patient and caregiver verbalize and/or demonstrate understanding of nursing education completed today. Education methods include: verbal cues. Further education required to improve knowledge and compliance with fall prevention/home safety strategies, gastrointestinal care management, genitourinary care management, medication management and nutrition. Catheter- Instruct Patient/Caregiver on use and management of a urinary catheter Description: Urinary catheter is a hannon catheter. Problem:SN Genitourinary disease process Goal:Patient/Caregiver will verbalize understanding and demonstrate improved management of genitourinary disease/condition. Completed patient and caregiver instructed on catheter management including: cleansing around catheter insertion site. UTI- Instruct Patient/Caregiver on signs and symptoms of urinary tract infection, treatment measures, measures to prevent reoccurence, and when to notify physician of symptoms Problem:SN Genitourinary disease process Goal:Patient/Caregiver will verbalize understanding and demonstrate improved management of genitourinary disease/condition. Completed patient instructed on signs and symptoms of UTI and when to notify physician and preventative measures including: clean genitalia daily and keep area dry to prevent bacteria and yeast growth. Constipation: Instruct Patient/Caregiver on measures to manage constipation Problem:SN Gastrointestinal Goal:Improved management of GI disease/condition Completed patient and caregiver instructed on the following measures to relieve constipation: increase fluids as tolerated. Instructed on use of enema and suppositories. documented in this encounter [facility]'s home Plan of care note* Visit Details Visit Type -SN ROUTINE Discipline -Long-Term Problems Problem Description Start Date Status Goals Interve ntions Medication Education Disciplines: Skilled Services 06/17/2024 Active 1 goal linked to scheduled/documen benjy intervention 1 goal intervention scheduled/document ed in this visit Sepsis Disciplines: Skilled Services 06/17/2024 Active 1 goal linked to scheduled/documen benjy intervention 1 goal intervention scheduled/document ed in this visit Risk for skin breakdown Disciplines: Skilled Services 06/17/2024 Active 1 goal linked to scheduled/documen benjy intervention 1 goal intervention scheduled/document ed in this visit Physician Specific Parameters Disciplines: Skilled Services 06/17/2024 Active 1 goal linked to scheduled/documen benjy intervention 1 goal intervention scheduled/document ed in this visit Risk for Falls Disciplines: Skilled Services 06/17/2024 Active 1 goal linked to scheduled/documen benjy intervention 1 goal intervention scheduled/document ed in this visit Nutrition/Hydration Disciplines: Skilled Services 06/17/2024 Active 1 goal linked to scheduled/documen benjy intervention 1 goal intervention scheduled/document ed in this visit SN Learning Assessment Disciplines: SN 06/17/2024 Active 1 goal linked to scheduled/documen benjy intervention 1 goal intervention scheduled/document ed in this visit SN Genitourinary disease process Disciplines: SN 06/17/2024 Active 1 goal linked to scheduled/documen benjy intervention 2 goal interventions scheduled/document ed in this visit SN Gastrointestinal Disciplines: SN 06/17/2024 Active 1 goal linked to scheduled/documen benjy intervention 1 goal intervention scheduled/document ed in this visit Goals Goal Associated Problem Outcome Goal Met? Visit Notes Patient/caregiver will demonstrate ability to obtain, store, identify and administer ordered medications, keep accurate medication list in home, and adhere to medication schedule Description: Patient/caregiver will demonstrate ability to obtain, store, identify and administer ordered medications, keep accurate medication list in home, and adhere to medication schedule by 08/15/24. Medication Education No Patient/caregiver will be able to identify and report symptoms of sepsis Description: Patient/caregiver will be able to identify signs/symptoms of sepsis infection and will verbalize actions to take if suspected by 08/15/24. Sepsis No Manage risk for skin breakdown Description: Patient/caregiver will verbalize and demonstrate understanding of the risks and measures to be taken to monitor and prevent skin breakdown by 07/18/24. Risk for skin breakdown No Patient to maintain parameters within physician-specified ranges throughout certification period Physician Specific Parameters No Manage Risk for falls Description: Patient/caregiver will verbalize knowledge of individualized fall prevention strategies by 08/15/24. Risk for Falls No Manage Nutrition/Hydration Description: Patient/caregiver will verbalize/demonstrate knowledge of prescribed diet and/or healthy nutrition to be achieved by 07/18/24. Nutrition/Hydration No Demonstrate understanding of education Description: Patient and/or caregiver will verbalize understanding of educational instruction provided throughout certification period. SN Learning Assessment No Patient/Caregiver will verbalize understanding and demonstrate improved management of genitourinary disease/condition. Description: Patient/Caregiver will state understanding of genitourinary disease/condition and be able to teach back management strategies by 08/15/24. SN Genitourinary disease process No Improved management of GI disease/condition Description: Patient/Caregiver will demonstrate understanding of GI education as evidenced by improved management of gastrointestinal disease/condition by 08/15/24. SN Gastrointestinal No Interventions Intervention Associated Problem/Goal Status Variance Visit Notes Medication Education Description: Evaluate/instruct patient/caregiver on obtaining, storing, identifying and administering ordered medications as well as keeping accurate medication list in the home and adhereing to medication schedule Problem:Medication Education Goal:Patient/caregiver will demonstrate ability to obtain, store, identify and administer ordered medications, keep accurate medication list in home, and adhere to medication schedule Completed Patient and Caregiver instructed on adhering to medication schedule. Risk of Sepsis Description: Patient is at risk for sepsis. Monitor closely for s/s of sepsis. Problem:Sepsis Goal:Patient/caregiver will be able to identify and report symptoms of sepsis Completed Instruct on the risks and measures to be taken to prevent skin breakdown Description: Patient's Chapo Score is: 18. A Chapo score <= to 18 indicates risk for skin breakdown. Problem:Risk for skin breakdown Goal:Manage risk for skin breakdown Completed patient and caregiver instructed on maintaining skin integrity including: Routine skin care SPO2 Description: Notify Clifford Estes MD and stop activity if pulse ox is <92% at rest. Problem:Physician Specific Parameters Goal:Patient to maintain parameters within physician-specified ranges throughout certification period Completed Instruct on individual fall risk factors and strategies to prevent falls and injuries caused by falls. Problem:Risk for Falls Goal:Manage Risk for falls Completed SN: Patient and Caregiver instructed on Managing Impaired Functional Mobility: Caregiver to provide assist with: Transfers and ADL/IADLs Define patient s appetite/hydration status and implement strategies to improve compliance with prescribed diet and/or healthy nutrition. Problem:Nutrition/Hydr ation Goal:Manage Nutrition/Hydration Completed reinforced patient and caregiver on implementing strategies to comply with healthy nutrition and adequate hydration Instruct and educate on knowledge deficits Problem:SN Learning Assessment Goal:Demonstrate understanding of education Completed patient and caregiver verbalize and/or demonstrate understanding of nursing education completed today. Education methods include: verbal cues and visual cues. Further education required to improve knowledge and compliance with fall prevention/home safety strategies, gastrointestinal care management, genitourinary care management, medication management and nutrition. Catheter- Instruct Patient/Caregiver on use and management of a urinary catheter Description: Urinary catheter is a hannon catheter. Problem:SN Genitourinary disease process Goal:Patient/Caregiver will verbalize understanding and demonstrate improved management of genitourinary disease/condition. Completed patient and caregiver instructed on catheter management including: cleansing around catheter insertion site and use of securement device. UTI- Instruct Patient/Caregiver on signs and symptoms of urinary tract infection, treatment measures, measures to prevent reoccurence, and when to notify physician of symptoms Problem:SN Genitourinary disease process Goal:Patient/Caregiver will verbalize understanding and demonstrate improved management of genitourinary disease/condition. Completed patient and caregiver instructed on signs and symptoms of UTI and when to notify physician and preventative measures including: drink plenty of liquids, especially water and clean genitalia daily and keep area dry to prevent bacteria and yeast growth. Constipation: Instruct Patient/Caregiver on measures to manage constipation Problem:SN Gastrointestinal Goal:Improved management of GI disease/condition Completed patient and caregiver instructed on the following measures to relieve constipation: increase fluids as tolerated. Instructed on use of enema and suppositories. [facility] Visit Details Visit Type -SN ROUTINE Discipline -Long-Term Problems Problem Description Start Date Status Goals Interve ntions Medication Education Disciplines: Skilled Services 06/17/2024 Active 1 goal linked to scheduled/documen benjy intervention 1 goal intervention scheduled/document ed in this visit Sepsis Disciplines: Skilled Services 06/17/2024 Active 1 goal linked to scheduled/documen benjy intervention 1 goal intervention scheduled/document ed in this visit Risk for skin breakdown Disciplines: Skilled Services 06/17/2024 Active 1 goal linked to scheduled/documen benjy intervention 1 goal intervention scheduled/document ed in this visit Physician Specific Parameters Disciplines: Skilled Services 06/17/2024 Active 1 goal linked to scheduled/documen benjy intervention 1 goal intervention scheduled/document ed in this visit Risk for Falls Disciplines: Skilled Services 06/17/2024 Active 1 goal linked to scheduled/documen benjy intervention 1 goal intervention scheduled/document ed in this visit Nutrition/Hydration Disciplines: Skilled Services 06/17/2024 Active 1 goal linked to scheduled/documen benjy intervention 1 goal intervention scheduled/document ed in this visit SN Learning Assessment Disciplines: SN 06/17/2024 Active 1 goal linked to scheduled/documen benjy intervention 1 goal intervention scheduled/document ed in this visit SN Genitourinary disease process Disciplines: SN 06/17/2024 Active 1 goal linked to scheduled/docgui burleson intervention 3 goal interventions scheduled/document ed in this visit Goals Goal Associated Problem Outcome Goal Met? Visit Notes Patient/caregiver will demonstrate ability to obtain, store, identify and administer ordered medications, keep accurate medication list in home, and adhere to medication schedule Description: Patient/caregiver will demonstrate ability to obtain, store, identify and administer ordered medications, keep accurate medication list in home, and adhere to medication schedule by 08/15/24. Medication Education No Patient/caregiver will be able to identify and report symptoms of sepsis Description: Patient/caregiver will be able to identify signs/symptoms of sepsis infection and will verbalize actions to take if suspected by 08/15/24. Sepsis No Manage risk for skin breakdown Description: Patient/caregiver will verbalize and demonstrate understanding of the risks and measures to be taken to monitor and prevent skin breakdown by 07/18/24. Risk for skin breakdown No Patient to maintain parameters within physician-specified ranges throughout certification period Physician Specific Parameters No Manage Risk for falls Description: Patient/caregiver will verbalize knowledge of individualized fall prevention strategies by 08/15/24. Risk for Falls No Manage Nutrition/Hydration Description: Patient/caregiver will verbalize/demonstrate knowledge of prescribed diet and/or healthy nutrition to be achieved by 07/18/24. Nutrition/Hydration No Demonstrate understanding of education Description: Patient and/or caregiver will verbalize understanding of educational instruction provided throughout certification period. SN Learning Assessment No Patient/Caregiver will verbalize understanding and demonstrate improved management of genitourinary disease/condition. Description: Patient/Caregiver will state understanding of genitourinary disease/condition and be able to teach back management strategies by 08/15/24. SN Genitourinary disease process In Progress No Interventions Intervention Associated Problem/Goal Status Variance Visit Notes Medication Education Description: Evaluate/instruct patient/caregiver on obtaining, storing, identifying and administering ordered medications as well as keeping accurate medication list in the home and adhereing to medication schedule Problem:Medication Education Goal:Patient/caregiv er will demonstrate ability to obtain, store, identify and administer ordered medications, keep accurate medication list in home, and adhere to medication schedule Completed Patient instructed on adhering to medication schedule. Risk of Sepsis Description: Patient is at risk for sepsis. Monitor closely for s/s of sepsis. Problem:Sepsis Goal:Patient/caregiv er will be able to identify and report symptoms of sepsis Completed Instruct on the risks and measures to be taken to prevent skin breakdown Description: Patient's Chapo Score is: 18. A Chapo score <= to 18 indicates risk for skin breakdown. Problem:Risk for skin breakdown Goal:Manage risk for skin breakdown Completed patient instructed on maintaining skin integrity including: Routine skin care SPO2 Description: Notify Clifford Estes MD and stop activity if pulse ox is <92% at rest. Problem:Physician Specific Parameters Goal:Patient to maintain parameters within physician-specified ranges throughout certification period Completed Instruct on individual fall risk factors and strategies to prevent falls and injuries caused by falls. Problem:Risk for Falls Goal:Manage Risk for falls Completed SN: Patient instructed on Eliminating Environmental Hazards: Keep pathways clear Define patient s appetite/hydration status and implement strategies to improve compliance with prescribed diet and/or healthy nutrition. Problem:Nutrition/Hy dration Goal:Manage Nutrition/Hydration Completed reinforced patient on implementing strategies to comply with healthy nutrition and adequate hydration Instruct and educate on knowledge deficits Problem:SN Learning Assessment Goal:Demonstrate understanding of education Completed patient and caregiver verbalize and/or demonstrate understanding of nursing education completed today. Education methods include: verbal cues and visual cues. Further education required to improve knowledge and compliance with fall prevention/home safety strategies, gastrointestinal care management, genitourinary care management, medication management and nutrition. Catheter- Change catheter Description: Change hannon catheter monthly and as needed using sterile technique, cleansing with betadine and inserting 16f/10cc specify catheter size/balloon fill amount. Problem:SN Genitourinary disease process Goal:Patient/Caregiv er will verbalize understanding and demonstrate improved management of genitourinary disease/condition. Completed Catheter- Instruct Patient/Caregiver on use and management of a urinary catheter Description: Urinary catheter is a hannon catheter. Problem:SN Genitourinary disease process Goal:Patient/Caregiv er will verbalize understanding and demonstrate improved management of genitourinary disease/condition. Completed caregiver instructed on catheter management including: use of securement device and potential complications and actions to take. UTI- Instruct Patient/Caregiver on signs and symptoms of urinary tract infection, treatment measures, measures to prevent reoccurence, and when to notify physician of symptoms Problem:SN Genitourinary disease process Goal:Patient/Caregiv er will verbalize understanding and demonstrate improved management of genitourinary disease/condition. Completed patient instructed on signs and symptoms of UTI and when to notify physician. [facility] Visit Details Visit Type -Care Coordinatio n Discipline -Composition Mixer Problems Problem Description Start Date Status Goals Interve ntions [employer] Referral Disciplines: Skilled Services 06/17/2024 Resolved on 07/19/2024 1 goal linked to scheduled/document ed intervention 1 goal intervention scheduled/document ed in this visit Goals Goal Associated Problem Outcome Goal Met? 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 Problem:FOUNTAIN SERVER Referral Goal:Patient will be referred to additional discipline as needed [facility] Visit Details Visit Type -SN ROUTINE Discipline -Long-Term Problems Problem Description Start Date Status Goals Interve ntions Medication Education Disciplines: Skilled Services 06/17/2024 Active 1 goal linked to scheduled/documen benjy intervention 1 goal intervention scheduled/document ed in this visit Sepsis Disciplines: Skilled Services 06/17/2024 Active 1 goal linked to scheduled/documen benjy intervention 1 goal intervention scheduled/document ed in this visit Risk for skin breakdown Disciplines: Skilled Services 06/17/2024 Active 1 goal linked to scheduled/documen benjy intervention 1 goal intervention scheduled/document ed in this visit Physician Specific Parameters Disciplines: Skilled Services 06/17/2024 Active 1 goal linked to scheduled/documen benjy intervention 1 goal intervention scheduled/document ed in this visit Risk for Falls Disciplines: Skilled Services 06/17/2024 Active 1 goal linked to scheduled/documen benjy intervention 1 goal intervention scheduled/document ed in this visit Nutrition/Hydration Disciplines: Skilled Services 06/17/2024 Active 1 goal linked to scheduled/documen benjy intervention 1 goal intervention scheduled/document ed in this visit SN Learning Assessment Disciplines: SN 06/17/2024 Active 1 goal linked to scheduled/documen benjy intervention 1 goal intervention scheduled/document ed in this visit SN Genitourinary disease process Disciplines: SN 06/17/2024 Active 1 goal linked to scheduled/documen benjy intervention 3 goal interventions scheduled/document ed in this visit SN Gastrointestinal Disciplines: SN 06/17/2024 Active 1 goal linked to scheduled/documen benjy intervention 1 goal intervention scheduled/document ed in this visit Goals Goal Associated Problem Outcome Goal Met? Visit Notes Patient/caregiver will demonstrate ability to obtain, store, identify and administer ordered medications, keep accurate medication list in home, and adhere to medication schedule Description: Patient/caregiver will demonstrate ability to obtain, store, identify and administer ordered medications, keep accurate medication list in home, and adhere to medication schedule by 08/15/24. Medication Education No Patient/caregiver will be able to identify and report symptoms of sepsis Description: Patient/caregiver will be able to identify signs/symptoms of sepsis infection and will verbalize actions to take if suspected by 08/15/24. Sepsis No Manage risk for skin breakdown Description: Patient/caregiver will verbalize and demonstrate understanding of the risks and measures to be taken to monitor and prevent skin breakdown by 07/18/24. Risk for skin breakdown No Patient to maintain parameters within physician-specified ranges throughout certification period Physician Specific Parameters No Manage Risk for falls Description: Patient/caregiver will verbalize knowledge of individualized fall prevention strategies by 08/15/24. Risk for Falls No Manage Nutrition/Hydration Description: Patient/caregiver will verbalize/demonstrate knowledge of prescribed diet and/or healthy nutrition to be achieved by 07/18/24. Nutrition/Hydration No Demonstrate understanding of education Description: Patient and/or caregiver will verbalize understanding of educational instruction provided throughout certification period. SN Learning Assessment No Patient/Caregiver will verbalize understanding and demonstrate improved management of genitourinary disease/condition. Description: Patient/Caregiver will state understanding of genitourinary disease/condition and be able to teach back management strategies by 08/15/24. SN Genitourinary disease process In Progress No Improved management of GI disease/condition Description: Patient/Caregiver will demonstrate understanding of GI education as evidenced by improved management of gastrointestinal disease/condition by 08/15/24. SN Gastrointestinal No Interventions Intervention Associated Problem/Goal Status Variance Visit Notes Medication Education Description: Evaluate/instruct patient/caregiver on obtaining, storing, identifying and administering ordered medications as well as keeping accurate medication list in the home and adhereing to medication schedule Problem:Medication Education Goal:Patient/caregiver will demonstrate ability to obtain, store, identify and administer ordered medications, keep accurate medication list in home, and adhere to medication schedule Completed Patient instructed on adhering to medication schedule. Risk of Sepsis Description: Patient is at risk for sepsis. Monitor closely for s/s of sepsis. Problem:Sepsis Goal:Patient/caregiver will be able to identify and report symptoms of sepsis Completed Instruct on the risks and measures to be taken to prevent skin breakdown Description: Patient's Chapo Score is: 18. A Chapo score <= to 18 indicates risk for skin breakdown. Problem:Risk for skin breakdown Goal:Manage risk for skin breakdown Completed patient instructed on maintaining skin integrity including: The need for every 1-2 hour turns, position changes, and maintaining activity as tolerated SPO2 Description: Notify Clifford Estes MD and stop activity if pulse ox is <92% at rest. Problem:Physician Specific Parameters Goal:Patient to maintain parameters within physician-specified ranges throughout certification period Completed Instruct on individual fall risk factors and strategies to prevent falls and injuries caused by falls. Problem:Risk for Falls Goal:Manage Risk for falls Completed SN: Patient instructed on Managing Impaired Functional Mobility: Caregiver to provide assist with: Transfers and ADL/IADLs Define patient s appetite/hydration status and implement strategies to improve compliance with prescribed diet and/or healthy nutrition. Problem:Nutrition/Hydr ation Goal:Manage Nutrition/Hydration Completed reinforced patient on implementing strategies to comply with healthy nutrition and adequate hydration Instruct and educate on knowledge deficits Problem:SN Learning Assessment Goal:Demonstrate understanding of education Completed patient and caregiver verbalize and/or demonstrate understanding of nursing education completed today. Education methods include: verbal cues and visual cues. Further education required to improve knowledge and compliance with fall prevention/home safety strategies, gastrointestinal care management, genitourinary care management, integumentary care management, medication management and nutrition. Catheter- Change catheter Description: Change hannon catheter monthly and as needed using sterile technique, cleansing with betadine and inserting 16f/10cc specify catheter size/balloon fill amount. Problem:SN Genitourinary disease process Goal:Patient/Caregiver will verbalize understanding and demonstrate improved management of genitourinary disease/condition. Completed Catheter- Instruct Patient/Caregiver on use and management of a urinary catheter Description: Urinary catheter is a hannon catheter. Problem:SN Genitourinary disease process Goal:Patient/Caregiver will verbalize understanding and demonstrate improved management of genitourinary disease/condition. Completed patient and caregiver instructed on catheter management including: cleansing around catheter insertion site and potential complications and actions to take. UTI- Instruct Patient/Caregiver on signs and symptoms of urinary tract infection, treatment measures, measures to prevent reoccurence, and when to notify physician of symptoms Problem:SN Genitourinary disease process Goal:Patient/Caregiver will verbalize understanding and demonstrate improved management of genitourinary disease/condition. Completed patient instructed on signs and symptoms of UTI and when to notify physician and preventative measures including: drink plenty of liquids, especially water and clean genitalia daily and keep area dry to prevent bacteria and yeast growth. Constipation: Instruct Patient/Caregiver on measures to manage constipation Problem:SN Gastrointestinal Goal:Improved management of GI disease/condition Completed patient instructed on the following measures to relieve constipation: increase fluids as tolerated. Instructed on use of laxative. documented in this encounter [facility] Plan of care note* Visit Details Visit Type -SN RECERT Discipline -Long-Term Problems Problem Description Start Date Status Goals Interve ntions Medication Education Disciplines: Skilled Services 06/17/2024 Active 1 goal linked to scheduled/documen benjy intervention 1 goal intervention scheduled/documen benjy in this visit Sepsis Disciplines: Skilled Services 06/17/2024 Active 1 goal linked to scheduled/documen benjy intervention 1 goal intervention scheduled/documen benjy in this visit Risk for skin breakdown Disciplines: Skilled Services 06/17/2024 Active 1 goal linked to scheduled/documen benjy intervention 1 goal intervention scheduled/documen benjy in this visit Physician Specific Parameters Disciplines: Skilled Services 06/17/2024 Active 1 goal linked to scheduled/documen benjy intervention 1 goal intervention scheduled/documen benjy in this visit Risk for Falls Disciplines: Skilled Services 06/17/2024 Active 1 goal linked to scheduled/documen benjy intervention 1 goal intervention scheduled/documen benjy in this visit Pain Disciplines: Skilled Services 06/17/2024 Resolved on 08/15/2024 1 goal linked to scheduled/documen benjy intervention Nutrition/Hydratio n Disciplines: Skilled Services 06/17/2024 Active 1 goal linked to scheduled/documen benjy intervention 1 goal intervention scheduled/documen benjy in this visit SN Learning Assessment Disciplines: SN 06/17/2024 Active 1 goal linked to scheduled/documen benjy intervention 1 goal intervention scheduled/documen benjy in this visit SN Genitourinary disease process Disciplines: SN 06/17/2024 Active 1 goal linked to scheduled/documen benjy intervention 2 goal interventions scheduled/documen benjy in this visit SN Gastrointestinal Disciplines: SN 06/17/2024 Active 1 goal linked to scheduled/documen benjy intervention 1 goal intervention scheduled/documen benjy in this visit SN Other significant comorbidities/dise ase process Disciplines: SN 06/17/2024 Resolved on 08/15/2024 1 goal linked to scheduled/documen benjy intervention Recertification Disciplines: Skilled Services 08/15/2024 Active 1 goal linked to scheduled/documen benjy intervention 1 goal intervention scheduled/documen benjy in this visit Goals Goal Associated Problem Outcome Goal Met? Visit Notes Patient/caregiver will demonstrate ability to obtain, store, identify and administer ordered medications, keep accurate medication list in home, and adhere to medication schedule Description: Patient/caregiver will demonstrate ability to obtain, store, identify and administer ordered medications, keep accurate medication list in home, and adhere to medication schedule through need of care. Medication Education No Patient/caregiver will be able to identify and report symptoms of sepsis Description: Patient/caregiver will be able to identify signs/symptoms of sepsis infection and will verbalize actions to take if suspected through need of care. Sepsis No Manage risk for skin breakdown Description: Patient/caregiver will verbalize and demonstrate understanding of the risks and measures to be taken to monitor and prevent skin breakdown through need of care. Risk for skin breakdown No Patient to maintain parameters within physician-specified ranges throughout certification period Physician Specific Parameters No Manage Risk for falls Description: Patient/caregiver will verbalize knowledge of individualized fall prevention strategies through need of care. Risk for Falls No Manage Pain Description: Patient/caregiver will verbalize knowledge and understanding of appropriate techniques to control pain, including non-pharmacological techniques. Patient will verbalize or demonstrate an acceptable level of pain as evidenced by a pain score of 0/10 and improvement in ability to perform activities of daily living through need of care. Pain Completed Yes Manage Nutrition/Hydration Description: Patient/caregiver will verbalize/demonstrate knowledge of prescribed diet and/or healthy nutrition through need of care. Nutrition/Hydration No Demonstrate understanding of education Description: Patient and/or caregiver will verbalize understanding of educational instruction provided throughout certification period. SN Learning Assessment No Patient/Caregiver will verbalize understanding and demonstrate improved management of genitourinary disease/condition. Description: Patient/Caregiver will state understanding of genitourinary disease/condition and be able to teach back management strategies by 10/14/24. SN Genitourinary disease process No Improved management of GI disease/condition Description: Patient/Caregiver will demonstrate understanding of GI education as evidenced by improved management of gastrointestinal disease/condition by 10/14/24. SN Gastrointestinal No Patient/Caregiver will verbalize and/or demonstrate understanding of additional comorbidity(s) or disease process affecting plan of care Description: Patient/Caregiver will verbalize and/or demonstrate understanding of comorbidities effect on health conditions by 07/18/24. SN Other significant comorbidities/disease process Completed Yes Ongoing review of POC and need for skilled services Recertification No Interventions Intervention Associated Problem/Goal Status Variance Visit Notes Medication Education Description: Evaluate/instruct patient/caregiver on obtaining, storing, identifying and administering ordered medications as well as keeping accurate medication list in the home and adhereing to medication schedule Problem:Medication Education Goal:Patient/caregiver will demonstrate ability to obtain, store, identify and administer ordered medications, keep accurate medication list in home, and adhere to medication schedule Completed Patient and Caregiver instructed on adhering to medication schedule. Risk of Sepsis Description: Patient is at risk for sepsis. Monitor closely for s/s of sepsis. Problem:Sepsis Goal:Patient/caregiver will be able to identify and report symptoms of sepsis Completed Instruct on the risks and measures to be taken to prevent skin breakdown Description: Patient's Chapo Score is: 18. A Chapo score <= to 18 indicates risk for skin breakdown. Problem:Risk for skin breakdown Goal:Manage risk for skin breakdown Completed patient and caregiver instructed on maintaining skin integrity including: The need for every 1-2 hour turns, position changes, and maintaining activity as tolerated and Routine skin care SPO2 Description: Notify Clifford Estes MD and stop activity if pulse ox is <92% at rest. Problem:Physician Specific Parameters Goal:Patient to maintain parameters within physician-specified ranges throughout certification period Completed Instruct on individual fall risk factors and strategies to prevent falls and injuries caused by falls. Problem:Risk for Falls Goal:Manage Risk for falls Completed SN: Patient and Caregiver instructed on Managing Impaired Functional Mobility: Caregiver to provide assist with: Transfers and ADL/IADLs Define patient s appetite/hydration status and implement strategies to improve compliance with prescribed diet and/or healthy nutrition. Problem:Nutrition/Hydr ation Goal:Manage Nutrition/Hydration Completed reinforced patient and caregiver on implementing strategies to comply with healthy nutrition and adequate hydration Instruct and educate on knowledge deficits Problem:SN Learning Assessment Goal:Demonstrate understanding of education Completed patient and caregiver verbalize and/or demonstrate understanding of nursing education completed today. Education methods include: verbal cues. Further education required to improve knowledge and compliance with fall prevention/home safety strategies, gastrointestinal care management, genitourinary care management, medication management and nutrition. Catheter- Instruct Patient/Caregiver on use and management of a urinary catheter Description: Urinary catheter is a hannon catheter. Problem:SN Genitourinary disease process Goal:Patient/Caregiver will verbalize understanding and demonstrate improved management of genitourinary disease/condition. Completed patient and caregiver instructed on catheter management including: cleansing around catheter insertion site and potential complications and actions to take. UTI- Instruct Patient/Caregiver on signs and symptoms of urinary tract infection, treatment measures, measures to prevent reoccurence, and when to notify physician of symptoms Problem:SN Genitourinary disease process Goal:Patient/Caregiver will verbalize understanding and demonstrate improved management of genitourinary disease/condition. Completed patient and caregiver instructed on signs and symptoms of UTI and when to notify physician. Constipation: Instruct Patient/Caregiver on measures to manage constipation Problem:SN Gastrointestinal Goal:Improved management of GI disease/condition Completed patient and caregiver instructed on the following measures to relieve constipation: increase dietary fiber intake as tolerated. Instructed on use of laxative and suppositories. Continued need for Home Care Services Description: POC and certification renewed due to continuous senior living needs. Problem:Recertificatio n Goal:Ongoing review of POC and need for skilled services Completed documented in this encounter [facility] Plan of care note* Visit Details Visit Type -SN PRN VISIT Discipline -Long-Term Problems Problem Description Start Date Status Goals Interve ntions Discharge Disciplines: Skilled Services 06/17/2024 Active 1 goal linked to scheduled/documen benjy intervention 1 goal intervention scheduled/document ed in this visit Medication Education Disciplines: Skilled Services 06/17/2024 Active 1 goal linked to scheduled/documen benjy intervention 1 goal intervention scheduled/document ed in this visit Sepsis Disciplines: Skilled Services 06/17/2024 Active 1 goal linked to scheduled/documen benjy intervention 1 goal intervention scheduled/document ed in this visit Risk for skin breakdown Disciplines: Skilled Services 06/17/2024 Active 1 goal linked to scheduled/documen benjy intervention 1 goal intervention scheduled/document ed in this visit Physician Specific Parameters Disciplines: Skilled Services 06/17/2024 Active 1 goal linked to scheduled/documen benjy intervention 1 goal intervention scheduled/document ed in this visit Risk for Falls Disciplines: Skilled Services 06/17/2024 Active 1 goal linked to scheduled/documen benjy intervention 1 goal intervention scheduled/document ed in this visit Nutrition/Hydration Disciplines: Skilled Services 06/17/2024 Active 1 goal linked to scheduled/documen benjy intervention 1 goal intervention scheduled/document ed in this visit SN Learning Assessment Disciplines: SN 06/17/2024 Active 1 goal linked to scheduled/documen benjy intervention 1 goal intervention scheduled/document ed in this visit SN Genitourinary disease process Disciplines: 06/17/2024 Active 1 goal linked to scheduled/documen benjy intervention 3 goal interventions scheduled/document ed in this visit SN Gastrointestinal Disciplines: 06/17/2024 Active 1 goal linked to scheduled/documen benjy intervention 1 goal intervention scheduled/document ed in this visit SN Labwork Disciplines: 08/22/2024 Active 1 goal linked to scheduled/documen benjy intervention 1 goal intervention scheduled/document ed in this visit Goals Goal Associated Problem Outcome Goal Met? Visit Notes Manage discharge planning Description: Patient/caregiver will verbalize understanding of ongoing discharge plan provided related to disease management, arrangements for outpatient and/or community services, obtaining medications, supplies, and DME, as needed throughout certification period. Discharge No Patient/caregiver will demonstrate ability to obtain, store, identify and administer ordered medications, keep accurate medication list in home, and adhere to medication schedule Description: Patient/caregiver will demonstrate ability to obtain, store, identify and administer ordered medications, keep accurate medication list in home, and adhere to medication schedule through need of care. Medication Education No Patient/caregiver will be able to identify and report symptoms of sepsis Description: Patient/caregiver will be able to identify signs/symptoms of sepsis infection and will verbalize actions to take if suspected through need of care. Sepsis No Manage risk for skin breakdown Description: Patient/caregiver will verbalize and demonstrate understanding of the risks and measures to be taken to monitor and prevent skin breakdown through need of care. Risk for skin breakdown No Patient to maintain parameters within physician-specified ranges throughout certification period Physician Specific Parameters No Manage Risk for falls Description: Patient/caregiver will verbalize knowledge of individualized fall prevention strategies through need of care. Risk for Falls No Manage Nutrition/Hydration Description: Patient/caregiver will verbalize/demonstrate knowledge of prescribed diet and/or healthy nutrition through need of care. Nutrition/Hydration No Demonstrate understanding of education Description: Patient and/or caregiver will verbalize understanding of educational instruction provided throughout certification period. SN Learning Assessment No Patient/Caregiver will verbalize understanding and demonstrate improved management of genitourinary disease/condition. Description: Patient/Caregiver will state understanding of genitourinary disease/condition and be able to teach back management strategies by 10/14/24. SN Genitourinary disease process No Improved management of GI disease/condition Description: Patient/Caregiver will demonstrate understanding of GI education as evidenced by improved management of gastrointestinal disease/condition by 10/14/24. SN Gastrointestinal No SN to obtain lab specimen without difficulty when ordered throughout certification period SN Labwork No Interventions Intervention Associated Problem/Goal Status Variance Visit Notes Instruct on ongoing discharge plan Problem:Discharge Goal:Manage discharge planning Completed Ongoing Discharge plan: Discharge plan discussed with patient including frequency and duration for home SN and plan for transition to: live independently at home without ongoing services. Medication Education Description: Evaluate/instruct patient/caregiver on obtaining, storing, identifying and administering ordered medications as well as keeping accurate medication list in the home and adhereing to medication schedule Problem:Medication Education Goal:Patient/caregiver will demonstrate ability to obtain, store, identify and administer ordered medications, keep accurate medication list in home, and adhere to medication schedule Completed Patient instructed on importance of keeping accurate medication list in home, need to take up-to-date medication list to all medical provider appointments and adhering to medication schedule. Risk of Sepsis Description: Patient is at risk for sepsis. Monitor closely for s/s of sepsis. Problem:Sepsis Goal:Patient/caregiver will be able to identify and report symptoms of sepsis Completed Instruct on the risks and measures to be taken to prevent skin breakdown Description: Patient's Chapo Score is: 18. A Chapo score <= to 18 indicates risk for skin breakdown. Problem:Risk for skin breakdown Goal:Manage risk for skin breakdown Completed patient instructed on maintaining skin integrity including: The need for every 1-2 hour turns, position changes, and maintaining activity as tolerated SPO2 Description: Notify Clifford Estes MD and stop activity if pulse ox is <92% at rest. Problem:Physician Specific Parameters Goal:Patient to maintain parameters within physician-specified ranges throughout certification period Completed Instruct on individual fall risk factors and strategies to prevent falls and injuries caused by falls. Problem:Risk for Falls Goal:Manage Risk for falls Completed SN: Patient instructed on Eliminating Environmental Hazards: Keep pathways clear, Keep pets out of pathways and Remove unsafe rugs Define patient s appetite/hydration status and implement strategies to improve compliance with prescribed diet and/or healthy nutrition. Problem:Nutrition/Hydr ation Goal:Manage Nutrition/Hydration Completed instructed patient on implementing strategies to comply with healthy nutrition Instruct and educate on knowledge deficits Problem:SN Learning Assessment Goal:Demonstrate understanding of education Completed patient verbalize and/or demonstrate understanding of nursing education completed today. Education methods include: verbal cues and teach back. Further education required to improve knowledge and compliance with fall prevention/home safety strategies, gastrointestinal care management and genitourinary care management. Catheter- Change catheter Description: Change hannon catheter monthly and as needed using sterile technique, cleansing with betadine and inserting 16f/10cc specify catheter size/balloon fill amount. Problem:SN Genitourinary disease process Goal:Patient/Caregiver will verbalize understanding and demonstrate improved management of genitourinary disease/condition. Completed Catheter- Instruct Patient/Caregiver on use and management of a urinary catheter Description: Urinary catheter is a hannon catheter. Problem:SN Genitourinary disease process Goal:Patient/Caregiver will verbalize understanding and demonstrate improved management of genitourinary disease/condition. Completed patient instructed on catheter management including: cleansing around catheter insertion site, proper care of urinary storage bags and bag change protocol. UTI- Instruct Patient/Caregiver on signs and symptoms of urinary tract infection, treatment measures, measures to prevent reoccurence, and when to notify physician of symptoms Problem:SN Genitourinary disease process Goal:Patient/Caregiver will verbalize understanding and demonstrate improved management of genitourinary disease/condition. Completed caregiver instructed on signs and symptoms of UTI and when to notify physician. Constipation: Instruct Patient/Caregiver on measures to manage constipation Problem:SN Gastrointestinal Goal:Improved management of GI disease/condition Completed patient instructed on the following measures to relieve constipation: increase fluids as tolerated. Instructed on use of stool softener. SN to obtain lab specimen (1) Description: Obtain urine specimen for UA,C&S of urine on 08/23/24 off of new catheter. Results to Yvette Gao [employer]: . Dx code(s): R82.90 . Problem:SN Labwork Goal:SN to obtain lab specimen without difficulty when ordered throughout certification period Completed documented in this encounter [facility]'s home Plan of care note* Visit Details Visit Type -SN ROUTINE Discipline -Long-Term Problems Problem Description Start Date Status Goals Interve ntions Medication Education Disciplines: Skilled Services 06/17/2024 Active 1 goal linked to scheduled/documen benjy intervention 1 goal intervention scheduled/documen benjy in this visit Sepsis Disciplines: Skilled Services 06/17/2024 Active 1 goal linked to scheduled/documen benjy intervention 1 goal intervention scheduled/documen benjy in this visit Risk for skin breakdown Disciplines: Skilled Services 06/17/2024 Active 1 goal linked to scheduled/documen benjy intervention 1 goal intervention scheduled/documen benjy in this visit Physician Specific Parameters Disciplines: Skilled Services 06/17/2024 Active 1 goal linked to scheduled/documen benjy intervention 1 goal intervention scheduled/documen benjy in this visit Risk for Falls Disciplines: Skilled Services 06/17/2024 Active 1 goal linked to scheduled/documen benjy intervention 1 goal intervention scheduled/documen benjy in this visit Nutrition/Hydratio n Disciplines: Skilled Services 06/17/2024 Active 1 goal linked to scheduled/documen benjy intervention 1 goal intervention scheduled/documen benjy in this visit SN Learning Assessment Disciplines: SN 06/17/2024 Active 1 goal linked to scheduled/documen benjy intervention 1 goal intervention scheduled/documen benjy in this visit SN Genitourinary disease process Disciplines: SN 06/17/2024 Active 1 goal linked to scheduled/documen benjy intervention 3 goal interventions scheduled/documen benjy in this visit Recertification Disciplines: Skilled Services 08/15/2024 Resolved on 09/19/2024 1 goal linked to scheduled/documen benjy intervention SN Labwork Disciplines: SN 08/22/2024 Resolved on 09/19/2024 1 goal linked to scheduled/documen benjy intervention Goals Goal Associated Problem Outcome Goal Met? Visit Notes Patient/caregiver will demonstrate ability to obtain, store, identify and administer ordered medications, keep accurate medication list in home, and adhere to medication schedule Description: Patient/caregiver will demonstrate ability to obtain, store, identify and administer ordered medications, keep accurate medication list in home, and adhere to medication schedule through need of care. Medication Education No Patient/caregiver will be able to identify and report symptoms of sepsis Description: Patient/caregiver will be able to identify signs/symptoms of sepsis infection and will verbalize actions to take if suspected through need of care. Sepsis No Manage risk for skin breakdown Description: Patient/caregiver will verbalize and demonstrate understanding of the risks and measures to be taken to monitor and prevent skin breakdown through need of care. Risk for skin breakdown No Patient to maintain parameters within physician-specified ranges throughout certification period Physician Specific Parameters No Manage Risk for falls Description: Patient/caregiver will verbalize knowledge of individualized fall prevention strategies through need of care. Risk for Falls No Manage Nutrition/Hydration Description: Patient/caregiver will verbalize/demonstrate knowledge of prescribed diet and/or healthy nutrition through need of care. Nutrition/Hydration No Demonstrate understanding of education Description: Patient and/or caregiver will verbalize understanding of educational instruction provided throughout certification period. SN Learning Assessment No Patient/Caregiver will verbalize understanding and demonstrate improved management of genitourinary disease/condition. Description: Patient/Caregiver will state understanding of genitourinary disease/condition and be able to teach back management strategies by 10/14/24. SN Genitourinary disease process No Ongoing review of POC and need for skilled services Recertification Completed Yes SN to obtain lab specimen without difficulty when ordered throughout certification period SN Labwork Completed Yes Interventions Intervention Associated Problem/Goal Status Variance Visit Notes Medication Education Description: Evaluate/instruct patient/caregiver on obtaining, storing, identifying and administering ordered medications as well as keeping accurate medication list in the home and adhereing to medication schedule Problem:Medication Education Goal:Patient/caregiv er will demonstrate ability to obtain, store, identify and administer ordered medications, keep accurate medication list in home, and adhere to medication schedule Completed Patient instructed on adhering to medication schedule. Risk of Sepsis Description: Patient is at risk for sepsis. Monitor closely for s/s of sepsis. Problem:Sepsis Goal:Patient/caregiv er will be able to identify and report symptoms of sepsis Completed Instruct on the risks and measures to be taken to prevent skin breakdown Description: Patient's Chapo Score is: 18. A Chapo score <= to 18 indicates risk for skin breakdown. Problem:Risk for skin breakdown Goal:Manage risk for skin breakdown Completed patient and caregiver instructed on maintaining skin integrity including: The need for every 1-2 hour turns, position changes, and maintaining activity as tolerated and Routine skin care SPO2 Description: Notify Clifford Estes MD and stop activity if pulse ox is <92% at rest. Problem:Physician Specific Parameters Goal:Patient to maintain parameters within physician-specified ranges throughout certification period Completed Instruct on individual fall risk factors and strategies to prevent falls and injuries caused by falls. Problem:Risk for Falls Goal:Manage Risk for falls Completed SN: Patient and Caregiver instructed on Managing Impaired Functional Mobility: Caregiver to provide assist with: Transfers Define patient s appetite/hydration status and implement strategies to improve compliance with prescribed diet and/or healthy nutrition. Problem:Nutrition/Hy dration Goal:Manage Nutrition/Hydration Completed reinforced patient on implementing strategies to comply with healthy nutrition and adequate hydration Instruct and educate on knowledge deficits Problem:SN Learning Assessment Goal:Demonstrate understanding of education Completed patient and caregiver verbalize and/or demonstrate understanding of nursing education completed today. Education methods include: verbal cues and visual cues. Further education required to improve knowledge and compliance with fall prevention/home safety strategies, gastrointestinal care management, genitourinary care management, integumentary care management, medication management and nutrition. Catheter- Change catheter Description: Change hannon catheter monthly and as needed using sterile technique, cleansing with betadine and inserting 16f/10cc specify catheter size/balloon fill amount. Problem:SN Genitourinary disease process Goal:Patient/Caregiv er will verbalize understanding and demonstrate improved management of genitourinary disease/condition. Completed Catheter- Instruct Patient/Caregiver on use and management of a urinary catheter Description: Urinary catheter is a hannon catheter. Problem:SN Genitourinary disease process Goal:Patient/Caregiv er will verbalize understanding and demonstrate improved management of genitourinary disease/condition. Completed patient instructed on catheter management including: potential complications and actions to take. UTI- Instruct Patient/Caregiver on signs and symptoms of urinary tract infection, treatment measures, measures to prevent reoccurence, and when to notify physician of symptoms Problem:SN Genitourinary disease process Goal:Patient/Caregiv er will verbalize understanding and demonstrate improved management of genitourinary disease/condition. Completed patient instructed on signs and symptoms of UTI and when to notify physician and preventative measures including: drink plenty of liquids, especially water. documented in this encounter [facility]'s home Plan of care note* Visit Details Visit Type -SN RECERT Discipline -Long-Term Problems Problem Description Start Date Status Goals Interve ntions Advance Directives Disciplines: Skilled Services 06/17/2024 Resolved on 10/10/2024 1 goal linked to scheduled/documen benjy intervention Medication Education Disciplines: Skilled Services 06/17/2024 Active 1 goal linked to scheduled/documen benjy intervention 1 goal intervention scheduled/documen benjy in this visit Sepsis Disciplines: Skilled Services 06/17/2024 Active 1 goal linked to scheduled/documen benjy intervention 1 goal intervention scheduled/documen benjy in this visit Risk for skin breakdown Disciplines: Skilled Services 06/17/2024 Active 1 goal linked to scheduled/documen benjy intervention 1 goal intervention scheduled/documen benjy in this visit Physician Specific Parameters Disciplines: Skilled Services 06/17/2024 Active 1 goal linked to scheduled/documen benjy intervention 1 goal intervention scheduled/documen benjy in this visit Risk for Falls Disciplines: Skilled Services 06/17/2024 Active 1 goal linked to scheduled/documen benjy intervention 1 goal intervention scheduled/documen benjy in this visit Nutrition/Hydratio n Disciplines: Skilled Services 06/17/2024 Active 1 goal linked to scheduled/documen benjy intervention 1 goal intervention scheduled/documen benjy in this visit SN Learning Assessment Disciplines: 06/17/2024 Active 1 goal linked to scheduled/documen benjy intervention 1 goal intervention scheduled/documen benjy in this visit SN Genitourinary disease process Disciplines: 06/17/2024 Active 1 goal linked to scheduled/documen benjy intervention 2 goal interventions scheduled/documen benjy in this visit SN Gastrointestinal Disciplines: SN 06/17/2024 Active 1 goal linked to scheduled/documen benjy intervention 1 goal intervention scheduled/documen benjy in this visit Recertification Disciplines: Skilled Services 10/10/2024 Active 1 goal linked to scheduled/documen benjy intervention 1 goal intervention scheduled/documen benjy in this visit Goals Goal Associated Problem Outcome Goal Met? Visit Notes Patient/caregiver will make healthcare providers aware of and any changes to Advance Directives throughout certification period Advance Directives Completed Yes Patient/caregiver will demonstrate ability to obtain, store, identify and administer ordered medications, keep accurate medication list in home, and adhere to medication schedule Description: Patient/caregiver will demonstrate ability to obtain, store, identify and administer ordered medications, keep accurate medication list in home, and adhere to medication schedule through need of care. Medication Education No Patient/caregiver will be able to identify and report symptoms of sepsis Description: Patient/caregiver will be able to identify signs/symptoms of sepsis infection and will verbalize actions to take if suspected through need of care. Sepsis No Manage risk for skin breakdown Description: Patient/caregiver will verbalize and demonstrate understanding of the risks and measures to be taken to monitor and prevent skin breakdown through need of care. Risk for skin breakdown No Patient to maintain parameters within physician-specified ranges throughout certification period Physician Specific Parameters No Manage Risk for falls Description: Patient/caregiver will verbalize knowledge of individualized fall prevention strategies through need of care. Risk for Falls No Manage Nutrition/Hydration Description: Patient/caregiver will verbalize/demonstrate knowledge of prescribed diet and/or healthy nutrition through need of care. Nutrition/Hydration No Demonstrate understanding of education Description: Patient and/or caregiver will verbalize understanding of educational instruction provided throughout certification period. SN Learning Assessment No Patient/Caregiver will verbalize understanding and demonstrate improved management of genitourinary disease/condition. Description: Patient/Caregiver will state understanding of genitourinary disease/condition and be able to teach back management strategies by 12/13/24. SN Genitourinary disease process In Progress No Improved management of GI disease/condition Description: Patient/Caregiver will demonstrate understanding of GI education as evidenced by improved management of gastrointestinal disease/condition by 12/13/24 SN Gastrointestinal In Progress No Ongoing review of POC and need for skilled services Recertification No Interventions Intervention Associated Problem/Goal Status Variance Visit Notes Medication Education Description: Evaluate/instruct patient/caregiver on obtaining, storing, identifying and administering ordered medications as well as keeping accurate medication list in the home and adhereing to medication schedule Problem:Medication Education Goal:Patient/caregiver will demonstrate ability to obtain, store, identify and administer ordered medications, keep accurate medication list in home, and adhere to medication schedule Completed Patient and Caregiver instructed on adhering to medication schedule. Risk of Sepsis Description: Patient is at risk for sepsis. Monitor closely for s/s of sepsis. Problem:Sepsis Goal:Patient/caregiver will be able to identify and report symptoms of sepsis Completed Instruct on the risks and measures to be taken to prevent skin breakdown Description: Patient's Chapo Score is: 18. A Chapo score <= to 18 indicates risk for skin breakdown. Problem:Risk for skin breakdown Goal:Manage risk for skin breakdown Completed patient and caregiver instructed on maintaining skin integrity including: The need for every 1-2 hour turns, position changes, and maintaining activity as tolerated SPO2 Description: Notify Clifford Estes MD and stop activity if pulse ox is <92% at rest. Problem:Physician Specific Parameters Goal:Patient to maintain parameters within physician-specified ranges throughout certification period Completed Instruct on individual fall risk factors and strategies to prevent falls and injuries caused by falls. Problem:Risk for Falls Goal:Manage Risk for falls Completed SN: Patient and Caregiver instructed on Managing Impaired Functional Mobility: Caregiver to provide assist with: Transfers and ADL/IADLs Define patient s appetite/hydration status and implement strategies to improve compliance with prescribed diet and/or healthy nutrition. Problem:Nutrition/Hydr ation Goal:Manage Nutrition/Hydration Completed reinforced patient and caregiver on implementing strategies to comply with healthy nutrition and adequate hydration Instruct and educate on knowledge deficits Problem:SN Learning Assessment Goal:Demonstrate understanding of education Completed patient and caregiver verbalize and/or demonstrate understanding of nursing education completed today. Education methods include: verbal cues. Further education required to improve knowledge and compliance with fall prevention/home safety strategies, gastrointestinal care management, genitourinary care management, integumentary care management, medication management and nutrition. Catheter- Instruct Patient/Caregiver on use and management of a urinary catheter Description: Urinary catheter is a hannon catheter. Problem:SN Genitourinary disease process Goal:Patient/Caregiver will verbalize understanding and demonstrate improved management of genitourinary disease/condition. Completed patient and caregiver instructed on catheter management including: cleansing around catheter insertion site. UTI- Instruct Patient/Caregiver on signs and symptoms of urinary tract infection, treatment measures, measures to prevent reoccurence, and when to notify physician of symptoms Problem:SN Genitourinary disease process Goal:Patient/Caregiver will verbalize understanding and demonstrate improved management of genitourinary disease/condition. Completed patient and caregiver instructed on signs and symptoms of UTI and when to notify physician. Constipation: Instruct Patient/Caregiver on measures to manage constipation Problem:SN Gastrointestinal Goal:Improved management of GI disease/condition Completed patient and caregiver instructed on the following measures to relieve constipation: increase fluids and increase dietary fiber intake as tolerated. Instructed on use of laxative and enema. Continued need for Home Care Services Description: POC and certification renewed due to continuous senior living needs. Problem:Recertificatio n Goal:Ongoing review of POC and need for skilled services Completed documented in this encounter [facility]'s home Plan of care note* Visit Details Visit Type -SN ROUTINE Discipline -Long-Term Problems Problem Description Start Date Status Goals Interve ntions Medication Education Disciplines: Skilled Services 06/17/2024 Active 1 goal linked to scheduled/documen benjy intervention 1 goal intervention scheduled/document ed in this visit Sepsis Disciplines: Skilled Services 06/17/2024 Active 1 goal linked to scheduled/documen benjy intervention 1 goal intervention scheduled/document ed in this visit Risk for skin breakdown Disciplines: Skilled Services 06/17/2024 Active 1 goal linked to scheduled/documen benjy intervention 1 goal intervention scheduled/document ed in this visit Physician Specific Parameters Disciplines: Skilled Services 06/17/2024 Active 1 goal linked to scheduled/documen benjy intervention 1 goal intervention scheduled/document ed in this visit Risk for Falls Disciplines: Skilled Services 06/17/2024 Active 1 goal linked to scheduled/documen benjy intervention 1 goal intervention scheduled/document ed in this visit Nutrition/Hydration Disciplines: Skilled Services 06/17/2024 Active 1 goal linked to scheduled/documen benjy intervention 1 goal intervention scheduled/document ed in this visit SN Learning Assessment Disciplines: SN 06/17/2024 Active 1 goal linked to scheduled/documen benjy intervention 1 goal intervention scheduled/document ed in this visit SN Genitourinary disease process Disciplines: SN 06/17/2024 Active 1 goal linked to scheduled/documen benjy intervention 3 goal interventions scheduled/document ed in this visit Goals Goal Associated Problem Outcome Goal Met? Visit Notes Patient/caregiver will demonstrate ability to obtain, store, identify and administer ordered medications, keep accurate medication list in home, and adhere to medication schedule Description: Patient/caregiver will demonstrate ability to obtain, store, identify and administer ordered medications, keep accurate medication list in home, and adhere to medication schedule through need of care. Medication Education No Patient/caregiver will be able to identify and report symptoms of sepsis Description: Patient/caregiver will be able to identify signs/symptoms of sepsis infection and will verbalize actions to take if suspected through need of care. Sepsis No Manage risk for skin breakdown Description: Patient/caregiver will verbalize and demonstrate understanding of the risks and measures to be taken to monitor and prevent skin breakdown through need of care. Risk for skin breakdown No Patient to maintain parameters within physician-specified ranges throughout certification period Physician Specific Parameters No Manage Risk for falls Description: Patient/caregiver will verbalize knowledge of individualized fall prevention strategies through need of care. Risk for Falls No Manage Nutrition/Hydration Description: Patient/caregiver will verbalize/demonstrate knowledge of prescribed diet and/or healthy nutrition through need of care. Nutrition/Hydration No Demonstrate understanding of education Description: Patient and/or caregiver will verbalize understanding of educational instruction provided throughout certification period. SN Learning Assessment No Patient/Caregiver will verbalize understanding and demonstrate improved management of genitourinary disease/condition. Description: Patient/Caregiver will state understanding of genitourinary disease/condition and be able to teach back management strategies by 12/13/24. SN Genitourinary disease process No Interventions Intervention Associated Problem/Goal Status Variance Visit Notes Medication Education Description: Evaluate/instruct patient/caregiver on obtaining, storing, identifying and administering ordered medications as well as keeping accurate medication list in the home and adhereing to medication schedule Problem:Medication Education Goal:Patient/caregive r will demonstrate ability to obtain, store, identify and administer ordered medications, keep accurate medication list in home, and adhere to medication schedule Completed Patient and Caregiver instructed on adhering to medication schedule. Risk of Sepsis Description: Patient is at risk for sepsis. Monitor closely for s/s of sepsis. Problem:Sepsis Goal:Patient/caregive r will be able to identify and report symptoms of sepsis Completed Instruct on the risks and measures to be taken to prevent skin breakdown Description: Patient's Chapo Score is: 18. A Chapo score <= to 18 indicates risk for skin breakdown. Problem:Risk for skin breakdown Goal:Manage risk for skin breakdown Completed patient and caregiver instructed on maintaining skin integrity including: The need for every 1-2 hour turns, position changes, and maintaining activity as tolerated SPO2 Description: Notify Clifford Estes MD and stop activity if pulse ox is <92% at rest. Problem:Physician Specific Parameters Goal:Patient to maintain parameters within physician-specified ranges throughout certification period Completed Instruct on individual fall risk factors and strategies to prevent falls and injuries caused by falls. Problem:Risk for Falls Goal:Manage Risk for falls Completed SN: Patient and Caregiver instructed on Managing Impaired Functional Mobility: Caregiver to provide assist with: Transfers and ADL/IADLs Define patient s appetite/hydration status and implement strategies to improve compliance with prescribed diet and/or healthy nutrition. Problem:Nutrition/Hyd ration Goal:Manage Nutrition/Hydration Completed reinforced patient and caregiver on implementing strategies to comply with healthy nutrition and adequate hydration Instruct and educate on knowledge deficits Problem:SN Learning Assessment Goal:Demonstrate understanding of education Completed patient and caregiver verbalize and/or demonstrate understanding of nursing education completed today. Education methods include: verbal cues and visual cues. Further education required to improve knowledge and compliance with fall prevention/home safety strategies, genitourinary care management, medication management and nutrition. Catheter- Change catheter Description: Change hannon catheter monthly and as needed using sterile technique, cleansing with betadine and inserting 16f/10cc specify catheter size/balloon fill amount. Problem:SN Genitourinary disease process Goal:Patient/Caregive r will verbalize understanding and demonstrate improved management of genitourinary disease/condition. Completed Catheter- Instruct Patient/Caregiver on use and management of a urinary catheter Description: Urinary catheter is a hannon catheter. Problem:SN Genitourinary disease process Goal:Patient/Caregive r will verbalize understanding and demonstrate improved management of genitourinary disease/condition. Completed patient and caregiver instructed on catheter management including: cleansing around catheter insertion site. UTI- Instruct Patient/Caregiver on signs and symptoms of urinary tract infection, treatment measures, measures to prevent reoccurence, and when to notify physician of symptoms Problem:SN Genitourinary disease process Goal:Patient/Caregive r will verbalize understanding and demonstrate improved management of genitourinary disease/condition. Completed patient and caregiver instructed on signs and symptoms of UTI and when to notify physician and preventative measures including: drink plenty of liquids, especially water and clean genitalia daily and keep area dry to prevent bacteria and yeast growth. [facility] Visit Details Visit Type -SN ROUTINE Discipline -Long-Term Problems Problem Description Start Date Status Goals Interve ntions Medication Education Disciplines: Skilled Services 06/17/2024 Active 1 goal linked to scheduled/documen benjy intervention 1 goal intervention scheduled/documen benjy in this visit Sepsis Disciplines: Skilled Services 06/17/2024 Active 1 goal linked to scheduled/documen benjy intervention 1 goal intervention scheduled/documen benjy in this visit Risk for skin breakdown Disciplines: Skilled Services 06/17/2024 Active 1 goal linked to scheduled/documen benjy intervention 1 goal intervention scheduled/documen benjy in this visit Physician Specific Parameters Disciplines: Skilled Services 06/17/2024 Active 1 goal linked to scheduled/documen benjy intervention 1 goal intervention scheduled/documen benjy in this visit Risk for Falls Disciplines: Skilled Services 06/17/2024 Active 1 goal linked to scheduled/documen benjy intervention 1 goal intervention scheduled/documen benjy in this visit Nutrition/Hydratio n Disciplines: Skilled Services 06/17/2024 Active 1 goal linked to scheduled/documen benjy intervention 1 goal intervention scheduled/documen benjy in this visit SN Learning Assessment Disciplines: SN 06/17/2024 Active 1 goal linked to scheduled/documen benjy intervention 1 goal intervention scheduled/documen benjy in this visit SN Genitourinary disease process Disciplines: SN 06/17/2024 Active 1 goal linked to scheduled/documen benjy intervention 3 goal interventions scheduled/documen benjy in this visit SN Gastrointestinal Disciplines: SN 06/17/2024 Active 1 goal linked to scheduled/documen benjy intervention 1 goal intervention scheduled/documen benjy in this visit Recertification Disciplines: Skilled Services 10/10/2024 Resolved on 11/16/2024 1 goal linked to scheduled/documen benjy intervention Goals Goal Associated Problem Outcome Goal Met? Visit Notes Patient/caregiver will demonstrate ability to obtain, store, identify and administer ordered medications, keep accurate medication list in home, and adhere to medication schedule Description: Patient/caregiver will demonstrate ability to obtain, store, identify and administer ordered medications, keep accurate medication list in home, and adhere to medication schedule through need of care. Medication Education No Patient/caregiver will be able to identify and report symptoms of sepsis Description: Patient/caregiver will be able to identify signs/symptoms of sepsis infection and will verbalize actions to take if suspected through need of care. Sepsis No Manage risk for skin breakdown Description: Patient/caregiver will verbalize and demonstrate understanding of the risks and measures to be taken to monitor and prevent skin breakdown through need of care. Risk for skin breakdown No Patient to maintain parameters within physician-specified ranges throughout certification period Physician Specific Parameters No Manage Risk for falls Description: Patient/caregiver will verbalize knowledge of individualized fall prevention strategies through need of care. Risk for Falls No Manage Nutrition/Hydration Description: Patient/caregiver will verbalize/demonstrate knowledge of prescribed diet and/or healthy nutrition through need of care. Nutrition/Hydration No Demonstrate understanding of education Description: Patient and/or caregiver will verbalize understanding of educational instruction provided throughout certification period. SN Learning Assessment No Patient/Caregiver will verbalize understanding and demonstrate improved management of genitourinary disease/condition. Description: Patient/Caregiver will state understanding of genitourinary disease/condition and be able to teach back management strategies by 12/13/24. SN Genitourinary disease process No Improved management of GI disease/condition Description: Patient/Caregiver will demonstrate understanding of GI education as evidenced by improved management of gastrointestinal disease/condition by 12/13/24 SN Gastrointestinal No Ongoing review of POC and need for skilled services Recertification Completed Yes Interventions Intervention Associated Problem/Goal Status Variance Visit Notes Medication Education Description: Evaluate/instruct patient/caregiver on obtaining, storing, identifying and administering ordered medications as well as keeping accurate medication list in the home and adhereing to medication schedule Problem:Medication Education Goal:Patient/caregiver will demonstrate ability to obtain, store, identify and administer ordered medications, keep accurate medication list in home, and adhere to medication schedule Completed Patient and Caregiver instructed on adhering to medication schedule. Risk of Sepsis Description: Patient is at risk for sepsis. Monitor closely for s/s of sepsis. Problem:Sepsis Goal:Patient/caregiver will be able to identify and report symptoms of sepsis Completed Instruct on the risks and measures to be taken to prevent skin breakdown Description: Patient's Chapo Score is: 18. A Chapo score <= to 18 indicates risk for skin breakdown. Problem:Risk for skin breakdown Goal:Manage risk for skin breakdown Completed patient and caregiver instructed on maintaining skin integrity including: The need for every 1-2 hour turns, position changes, and maintaining activity as tolerated SPO2 Description: Notify Clifford Estes MD and stop activity if pulse ox is <92% at rest. Problem:Physician Specific Parameters Goal:Patient to maintain parameters within physician-specified ranges throughout certification period Completed Instruct on individual fall risk factors and strategies to prevent falls and injuries caused by falls. Problem:Risk for Falls Goal:Manage Risk for falls Completed SN: Patient and Caregiver instructed on Managing Impaired Functional Mobility: Caregiver to provide assist with: Transfers and ADL/IADLs Define patient s appetite/hydration status and implement strategies to improve compliance with prescribed diet and/or healthy nutrition. Problem:Nutrition/Hydr ation Goal:Manage Nutrition/Hydration Completed reinforced patient on implementing strategies to comply with healthy nutrition and adequate hydration Instruct and educate on knowledge deficits Problem:SN Learning Assessment Goal:Demonstrate understanding of education Completed patient and caregiver verbalize and/or demonstrate understanding of nursing education completed today. Education methods include: verbal cues. Further education required to improve knowledge and compliance with fall prevention/home safety strategies, gastrointestinal care management, genitourinary care management, integumentary care management and nutrition. Catheter- Change catheter Description: Change hannon catheter monthly and as needed using sterile technique, cleansing with betadine and inserting 16f/10cc specify catheter size/balloon fill amount. Problem:SN Genitourinary disease process Goal:Patient/Caregiver will verbalize understanding and demonstrate improved management of genitourinary disease/condition. Completed Catheter- Instruct Patient/Caregiver on use and management of a urinary catheter Description: Urinary catheter is a hannon catheter. Problem:SN Genitourinary disease process Goal:Patient/Caregiver will verbalize understanding and demonstrate improved management of genitourinary disease/condition. Completed patient and caregiver instructed on catheter management including: cleansing around catheter insertion site. UTI- Instruct Patient/Caregiver on signs and symptoms of urinary tract infection, treatment measures, measures to prevent reoccurence, and when to notify physician of symptoms Problem:SN Genitourinary disease process Goal:Patient/Caregiver will verbalize understanding and demonstrate improved management of genitourinary disease/condition. Completed patient and caregiver instructed on signs and symptoms of UTI and when to notify physician and preventative measures including: drink plenty of liquids, especially water and clean genitalia daily and keep area dry to prevent bacteria and yeast growth. Constipation: Instruct Patient/Caregiver on measures to manage constipation Problem:SN Gastrointestinal Goal:Improved management of GI disease/condition Completed patient and caregiver instructed on the following measures to relieve constipation: increase fluids as tolerated. Instructed on use of laxative. [facility] Visit Details Visit Type -SN RECERT Discipline -Long-Term Problems Problem Description Start Date Status Goals Interve ntions Medication Education Disciplines: Skilled Services 06/17/2024 Active 1 goal linked to scheduled/documen benjy intervention 1 goal intervention scheduled/document ed in this visit Sepsis Disciplines: Skilled Services 06/17/2024 Active 1 goal linked to scheduled/documen benjy intervention 1 goal intervention scheduled/document ed in this visit Risk for skin breakdown Disciplines: Skilled Services 06/17/2024 Active 1 goal linked to scheduled/documen benjy intervention 1 goal intervention scheduled/document ed in this visit Physician Specific Parameters Disciplines: Skilled Services 06/17/2024 Active 1 goal linked to scheduled/documen benjy intervention 1 goal intervention scheduled/document ed in this visit Risk for Falls Disciplines: Skilled Services 06/17/2024 Active 1 goal linked to scheduled/documen benjy intervention 1 goal intervention scheduled/document ed in this visit SN Learning Assessment Disciplines: SN 06/17/2024 Active 1 goal linked to scheduled/documen benjy intervention 1 goal intervention scheduled/document ed in this visit SN Genitourinary disease process Disciplines: SN 06/17/2024 Active 1 goal linked to scheduled/documen benjy intervention 3 goal interventions scheduled/document ed in this visit SN Gastrointestinal Disciplines: SN 06/17/2024 Active 1 goal linked to scheduled/documen benjy intervention 1 goal intervention scheduled/document ed in this visit Recertification Disciplines: Skilled Services 12/13/2024 Active 1 goal linked to scheduled/documen benjy intervention 1 goal intervention scheduled/document ed in this visit Goals Goal Associated Problem Outcome Goal Met? Visit Notes Patient/caregiver will demonstrate ability to obtain, store, identify and administer ordered medications, keep accurate medication list in home, and adhere to medication schedule Description: Patient/caregiver will demonstrate ability to obtain, store, identify and administer ordered medications, keep accurate medication list in home, and adhere to medication schedule through need of care. Medication Education No Patient/caregiver will be able to identify and report symptoms of sepsis Description: Patient/caregiver will be able to identify signs/symptoms of sepsis infection and will verbalize actions to take if suspected through need of care. Sepsis No Manage risk for skin breakdown Description: Patient/caregiver will verbalize and demonstrate understanding of the risks and measures to be taken to monitor and prevent skin breakdown through need of care. Risk for skin breakdown No Patient to maintain parameters within physician-specified ranges throughout certification period Physician Specific Parameters No Manage Risk for falls Description: Patient/caregiver will verbalize knowledge of individualized fall prevention strategies through need of care. Risk for Falls No Demonstrate understanding of education Description: Patient and/or caregiver will verbalize understanding of educational instruction provided throughout certification period. SN Learning Assessment No Patient/Caregiver will verbalize understanding and demonstrate improved management of genitourinary disease/condition. Description: Patient/Caregiver will state understanding of genitourinary disease/condition and be able to teach back management strategies by 02/11/25. SN Genitourinary disease process No Improved management of GI disease/condition Description: Patient/Caregiver will demonstrate understanding of GI education as evidenced by improved management of gastrointestinal disease/condition by 02/11/25 SN Gastrointestinal No Ongoing review of POC and need for skilled services Recertification No Interventions Intervention Associated Problem/Goal Status Variance Visit Notes Medication Education Description: Evaluate/instruct patient/caregiver on obtaining, storing, identifying and administering ordered medications as well as keeping accurate medication list in the home and adhereing to medication schedule Problem:Medication Education Goal:Patient/caregiver will demonstrate ability to obtain, store, identify and administer ordered medications, keep accurate medication list in home, and adhere to medication schedule Completed Patient instructed on adhering to medication schedule. Risk of Sepsis Description: Patient is at risk for sepsis. Monitor closely for s/s of sepsis. Problem:Sepsis Goal:Patient/caregiver will be able to identify and report symptoms of sepsis Completed Instruct on the risks and measures to be taken to prevent skin breakdown Description: Patient's Chapo Score is: 18. A Chapo score <= to 18 indicates risk for skin breakdown. Problem:Risk for skin breakdown Goal:Manage risk for skin breakdown Completed patient and caregiver instructed on maintaining skin integrity including: The need for every 1-2 hour turns, position changes, and maintaining activity as tolerated and Routine skin care SPO2 Description: Notify Clifford Estes MD and stop activity if pulse ox is <92% at rest. Problem:Physician Specific Parameters Goal:Patient to maintain parameters within physician-specified ranges throughout certification period Completed Instruct on individual fall risk factors and strategies to prevent falls and injuries caused by falls. Problem:Risk for Falls Goal:Manage Risk for falls Completed SN: Patient and Caregiver instructed on Eliminating Environmental Hazards: Keep pathways clear, Keep pets out of pathways and Keep rooms and walkways well lit Managing Impaired Functional Mobility: Caregiver to provide assist with: Ambulation, Transfers and ADL/IADLs Instruct and educate on knowledge deficits Problem:SN Learning Assessment Goal:Demonstrate understanding of education Completed patient and caregiver verbalize and/or demonstrate understanding of nursing education completed today. Education methods include: verbal cues and visual cues. Further education required to improve knowledge and compliance with fall prevention/home safety strategies, gastrointestinal care management, genitourinary care management and medication management. Catheter- Change catheter Description: Change hannon catheter monthly and as needed using sterile technique, cleansing with betadine and inserting 16f/10cc specify catheter size/balloon fill amount. Problem:SN Genitourinary disease process Goal:Patient/Caregiver will verbalize understanding and demonstrate improved management of genitourinary disease/condition. Completed Catheter- Instruct Patient/Caregiver on use and management of a urinary catheter Description: Urinary catheter is a hannon catheter. Problem:SN Genitourinary disease process Goal:Patient/Caregiver will verbalize understanding and demonstrate improved management of genitourinary disease/condition. Completed patient and caregiver instructed on catheter management including: cleansing around catheter insertion site, positioning the catheter and urinary bag, use of securement device and potential complications and actions to take. UTI- Instruct Patient/Caregiver on signs and symptoms of urinary tract infection, treatment measures, measures to prevent reoccurence, and when to notify physician of symptoms Problem:SN Genitourinary disease process Goal:Patient/Caregiver will verbalize understanding and demonstrate improved management of genitourinary disease/condition. Completed patient and caregiver instructed on signs and symptoms of UTI and when to notify physician and preventative measures including: drink plenty of liquids, especially water, cleanse hands before performing personal care and clean genitalia daily and keep area dry to prevent bacteria and yeast growth. Constipation: Instruct Patient/Caregiver on measures to manage constipation Problem:SN Gastrointestinal Goal:Improved management of GI disease/condition Completed patient and caregiver instructed on the following measures to relieve constipation: increase fluids and increase activity as tolerated. Instructed on use of stool softener. Continued need for Home Care Services Description: POC and certification renewed due to continuous senior living needs. Problem:Recertificatio n Goal:Ongoing review of POC and need for skilled services Completed documented in this encounter [facility] Plan of care note* Visit Details Visit Type -SN ROUTINE Discipline -Long-Term Problems Problem Description Start Date Status Goals Interve ntions Medication Education Disciplines: Skilled Services 06/17/2024 Active 1 goal linked to scheduled/documen benjy intervention 1 goal intervention scheduled/documen benjy in this visit Sepsis Disciplines: Skilled Services 06/17/2024 Active 1 goal linked to scheduled/documen benjy intervention 1 goal intervention scheduled/documen benjy in this visit Risk for skin breakdown Disciplines: Skilled Services 06/17/2024 Active 1 goal linked to scheduled/documen benjy intervention 1 goal intervention scheduled/documen benjy in this visit Physician Specific Parameters Disciplines: Skilled Services 06/17/2024 Active 1 goal linked to scheduled/documen benjy intervention 1 goal intervention scheduled/documen benjy in this visit Risk for Falls Disciplines: Skilled Services 06/17/2024 Active 1 goal linked to scheduled/documen benjy intervention 1 goal intervention scheduled/documen benjy in this visit Nutrition/Hydratio n Disciplines: Skilled Services 06/17/2024 Active 1 goal linked to scheduled/documen benjy intervention 1 goal intervention scheduled/documen benjy in this visit SN Learning Assessment Disciplines: SN 06/17/2024 Active 1 goal linked to scheduled/documen benjy intervention 1 goal intervention scheduled/documen benjy in this visit SN Genitourinary disease process Disciplines: SN 06/17/2024 Active 1 goal linked to scheduled/documen benjy intervention 3 goal interventions scheduled/documen benjy in this visit SN Gastrointestinal Disciplines: SN 06/17/2024 Active 1 goal linked to scheduled/documen benjy intervention 1 goal intervention scheduled/documen benjy in this visit Recertification Disciplines: Skilled Services 12/13/2024 Resolved on 01/09/2025 1 goal linked to scheduled/documen benjy intervention Goals Goal Associated Problem Outcome Goal Met? Visit Notes Patient/caregiver will demonstrate ability to obtain, store, identify and administer ordered medications, keep accurate medication list in home, and adhere to medication schedule Description: Patient/caregiver will demonstrate ability to obtain, store, identify and administer ordered medications, keep accurate medication list in home, and adhere to medication schedule through need of care. Medication Education No Patient/caregiver will be able to identify and report symptoms of sepsis Description: Patient/caregiver will be able to identify signs/symptoms of sepsis infection and will verbalize actions to take if suspected through need of care. Sepsis No Manage risk for skin breakdown Description: Patient/caregiver will verbalize and demonstrate understanding of the risks and measures to be taken to monitor and prevent skin breakdown through need of care. Risk for skin breakdown No Patient to maintain parameters within physician-specified ranges throughout certification period Physician Specific Parameters No Manage Risk for falls Description: Patient/caregiver will verbalize knowledge of individualized fall prevention strategies through need of care. Risk for Falls No Manage Nutrition/Hydration Description: Patient/caregiver will verbalize/demonstrate knowledge of prescribed diet and/or healthy nutrition through need of care. Nutrition/Hydration No Demonstrate understanding of education Description: Patient and/or caregiver will verbalize understanding of educational instruction provided throughout certification period. SN Learning Assessment No Patient/Caregiver will verbalize understanding and demonstrate improved management of genitourinary disease/condition. Description: Patient/Caregiver will state understanding of genitourinary disease/condition and be able to teach back management strategies by 02/11/25. SN Genitourinary disease process No Improved management of GI disease/condition Description: Patient/Caregiver will demonstrate understanding of GI education as evidenced by improved management of gastrointestinal disease/condition by 02/11/25 SN Gastrointestinal No Ongoing review of POC and need for skilled services Recertification Completed Yes Interventions Intervention Associated Problem/Goal Status Variance Visit Notes Medication Education Description: Evaluate/instruct patient/caregiver on obtaining, storing, identifying and administering ordered medications as well as keeping accurate medication list in the home and adhereing to medication schedule Problem:Medication Education Goal:Patient/caregiver will demonstrate ability to obtain, store, identify and administer ordered medications, keep accurate medication list in home, and adhere to medication schedule Completed Patient instructed on adhering to medication schedule. Risk of Sepsis Description: Patient is at risk for sepsis. Monitor closely for s/s of sepsis. Problem:Sepsis Goal:Patient/caregiver will be able to identify and report symptoms of sepsis Completed Instruct on the risks and measures to be taken to prevent skin breakdown Description: Patient's Chapo Score is: 18. A Chapo score <= to 18 indicates risk for skin breakdown. Problem:Risk for skin breakdown Goal:Manage risk for skin breakdown Completed patient and caregiver instructed on maintaining skin integrity including: The need for every 1-2 hour turns, position changes, and maintaining activity as tolerated SPO2 Description: Notify Clifford Estes MD and stop activity if pulse ox is <92% at rest. Problem:Physician Specific Parameters Goal:Patient to maintain parameters within physician-specified ranges throughout certification period Completed Instruct on individual fall risk factors and strategies to prevent falls and injuries caused by falls. Problem:Risk for Falls Goal:Manage Risk for falls Completed SN: Patient instructed on Managing Impaired Functional Mobility: Caregiver to provide assist with: Transfers and ADL/IADLs Define patient s appetite/hydration status and implement strategies to improve compliance with prescribed diet and/or healthy nutrition. Problem:Nutrition/Hydr ation Goal:Manage Nutrition/Hydration Completed reinforced patient on implementing strategies to comply with healthy nutrition and adequate hydration Instruct and educate on knowledge deficits Problem:SN Learning Assessment Goal:Demonstrate understanding of education Completed patient and caregiver verbalize and/or demonstrate understanding of nursing education completed today. Education methods include: verbal cues and visual cues. Further education required to improve knowledge and compliance with fall prevention/home safety strategies, gastrointestinal care management, genitourinary care management, medication management and nutrition. Catheter- Change catheter Description: Change hannon catheter monthly and as needed using sterile technique, cleansing with betadine and inserting 16f/10cc specify catheter size/balloon fill amount. Problem:SN Genitourinary disease process Goal:Patient/Caregiver will verbalize understanding and demonstrate improved management of genitourinary disease/condition. Completed Catheter- Instruct Patient/Caregiver on use and management of a urinary catheter Description: Urinary catheter is a hannon catheter. Problem:SN Genitourinary disease process Goal:Patient/Caregiver will verbalize understanding and demonstrate improved management of genitourinary disease/condition. Completed patient and caregiver instructed on catheter management including: cleansing around catheter insertion site, use of securement device and potential complications and actions to take. UTI- Instruct Patient/Caregiver on signs and symptoms of urinary tract infection, treatment measures, measures to prevent reoccurence, and when to notify physician of symptoms Problem:SN Genitourinary disease process Goal:Patient/Caregiver will verbalize understanding and demonstrate improved management of genitourinary disease/condition. Completed patient instructed on signs and symptoms of UTI and when to notify physician and preventative measures including: drink plenty of liquids, especially water. Constipation: Instruct Patient/Caregiver on measures to manage constipation Problem:SN Gastrointestinal Goal:Improved management of GI disease/condition Completed patient instructed on the following measures to relieve constipation: increase fluids as tolerated. Instructed on use of laxative. [facility] Visit Details Visit Type -SN RECERT Discipline -Long-Term Problems Problem Description Start Date Status Goals Interve ntions Medication Education Disciplines: Skilled Services 06/17/2024 Active 1 goal linked to scheduled/documen benjy intervention 1 goal intervention scheduled/document ed in this visit Sepsis Disciplines: Skilled Services 06/17/2024 Active 1 goal linked to scheduled/documen benjy intervention 1 goal intervention scheduled/document ed in this visit Risk for skin breakdown Disciplines: Skilled Services 06/17/2024 Active 1 goal linked to scheduled/documen benjy intervention 1 goal intervention scheduled/document ed in this visit Physician Specific Parameters Disciplines: Skilled Services 06/17/2024 Active 1 goal linked to scheduled/documen benjy intervention 1 goal intervention scheduled/document ed in this visit Risk for Falls Disciplines: Skilled Services 06/17/2024 Active 1 goal linked to scheduled/documen benjy intervention 1 goal intervention scheduled/document ed in this visit Nutrition/Hydration Disciplines: Skilled Services 06/17/2024 Active 1 goal linked to scheduled/documen benjy intervention 1 goal intervention scheduled/document ed in this visit SN Learning Assessment Disciplines: SN 06/17/2024 Active 1 goal linked to scheduled/documen benjy intervention 1 goal intervention scheduled/document ed in this visit SN Genitourinary disease process Disciplines: SN 06/17/2024 Active 1 goal linked to scheduled/documen benjy intervention 3 goal interventions scheduled/document ed in this visit SN Gastrointestinal Disciplines: SN 06/17/2024 Active 1 goal linked to scheduled/documen benjy intervention 1 goal intervention scheduled/document ed in this visit Goals Goal Associated Problem Outcome Goal Met? Visit Notes Patient/caregiver will demonstrate ability to obtain, store, identify and administer ordered medications, keep accurate medication list in home, and adhere to medication schedule Description: Patient/caregiver will demonstrate ability to obtain, store, identify and administer ordered medications, keep accurate medication list in home, and adhere to medication schedule through need of care. Medication Education No Patient/caregiver will be able to identify and report symptoms of sepsis Description: Patient/caregiver will be able to identify signs/symptoms of sepsis infection and will verbalize actions to take if suspected through need of care. Sepsis No Manage risk for skin breakdown Description: Patient/caregiver will verbalize and demonstrate understanding of the risks and measures to be taken to monitor and prevent skin breakdown through need of care. Risk for skin breakdown No Patient to maintain parameters within physician-specified ranges throughout certification period Physician Specific Parameters No Manage Risk for falls Description: Patient/caregiver will verbalize knowledge of individualized fall prevention strategies through need of care. Risk for Falls No Manage Nutrition/Hydration Description: Patient/caregiver will verbalize/demonstrate knowledge of prescribed diet and/or healthy nutrition through need of care. Nutrition/Hydration No Demonstrate understanding of education Description: Patient and/or caregiver will verbalize understanding of educational instruction provided throughout certification period. SN Learning Assessment No Patient/Caregiver will verbalize understanding and demonstrate improved management of genitourinary disease/condition. Description: Patient/Caregiver will state understanding of genitourinary disease/condition and be able to teach back management strategies by 04/12/25. SN Genitourinary disease process No Improved management of GI disease/condition Description: Patient/Caregiver will demonstrate understanding of GI education as evidenced by improved management of gastrointestinal disease/condition by 02/11/25 SN Gastrointestinal No Interventions Intervention Associated Problem/Goal Status Variance Visit Notes Medication Education Description: Evaluate/instruct patient/caregiver on obtaining, storing, identifying and administering ordered medications as well as keeping accurate medication list in the home and adhereing to medication schedule Problem:Medication Education Goal:Patient/caregiver will demonstrate ability to obtain, store, identify and administer ordered medications, keep accurate medication list in home, and adhere to medication schedule Completed Patient instructed on adhering to medication schedule. Risk of Sepsis Description: Patient is at risk for sepsis. Monitor closely for s/s of sepsis. Problem:Sepsis Goal:Patient/caregiver will be able to identify and report symptoms of sepsis Completed Instruct on the risks and measures to be taken to prevent skin breakdown Description: Patient's Chapo Score is: 18. A Chapo score <= to 18 indicates risk for skin breakdown. Problem:Risk for skin breakdown Goal:Manage risk for skin breakdown Completed patient instructed on maintaining skin integrity including: Routine skin care SPO2 Description: Notify Clifford Estes MD and stop activity if pulse ox is <92% at rest. Problem:Physician Specific Parameters Goal:Patient to maintain parameters within physician-specified ranges throughout certification period Completed Instruct on individual fall risk factors and strategies to prevent falls and injuries caused by falls. Problem:Risk for Falls Goal:Manage Risk for falls Completed SN: Patient instructed on Managing Impaired Functional Mobility: Caregiver to provide assist with: Ambulation, Transfers and ADL/IADLs Define patient s appetite/hydration status and implement strategies to improve compliance with prescribed diet and/or healthy nutrition. Problem:Nutrition/Hydr ation Goal:Manage Nutrition/Hydration Completed reinforced patient on implementing strategies to comply with healthy nutrition and adequate hydration Instruct and educate on knowledge deficits Problem:SN Learning Assessment Goal:Demonstrate understanding of education Completed patient verbalize and/or demonstrate understanding of nursing education completed today. Education methods include: verbal cues. Further education required to improve knowledge and compliance with fall prevention/home safety strategies, gastrointestinal care management, genitourinary care management, medication management and nutrition. Catheter- Change catheter Description: Change hannon catheter monthly and as needed using sterile technique, cleansing with betadine and inserting 16f/10cc specify catheter size/balloon fill amount. Problem:SN Genitourinary disease process Goal:Patient/Caregiver will verbalize understanding and demonstrate improved management of genitourinary disease/condition. Completed Catheter- Instruct Patient/Caregiver on use and management of a urinary catheter Description: Urinary catheter is a hannon catheter. Problem:SN Genitourinary disease process Goal:Patient/Caregiver will verbalize understanding and demonstrate improved management of genitourinary disease/condition. Completed patient and caregiver instructed on catheter management including: cleansing around catheter insertion site. UTI- Instruct Patient/Caregiver on signs and symptoms of urinary tract infection, treatment measures, measures to prevent reoccurence, and when to notify physician of symptoms Problem:SN Genitourinary disease process Goal:Patient/Caregiver will verbalize understanding and demonstrate improved management of genitourinary disease/condition. Completed patient instructed on signs and symptoms of UTI and when to notify physician and preventative measures including: drink plenty of liquids, especially water and clean genitalia daily and keep area dry to prevent bacteria and yeast growth. Constipation: Instruct Patient/Caregiver on measures to manage constipation Problem:SN Gastrointestinal Goal:Improved management of GI disease/condition Completed patient instructed on the following measures to relieve constipation: increase fluids as tolerated. Instructed on use of stool softener, laxative and enema. [facility] Visit Details Visit Type -SN ROUTINE Discipline -Long-Term Problems Problem Description Start Date Status Goals Interve ntions Medication Education Disciplines: Skilled Services 06/17/2024 Active 1 goal linked to scheduled/documen benjy intervention 1 goal intervention scheduled/document ed in this visit Sepsis Disciplines: Skilled Services 06/17/2024 Active 1 goal linked to scheduled/documen benjy intervention 1 goal intervention scheduled/document ed in this visit Risk for skin breakdown Disciplines: Skilled Services 06/17/2024 Active 1 goal linked to scheduled/documen benjy intervention 1 goal intervention scheduled/document ed in this visit Physician Specific Parameters Disciplines: Skilled Services 06/17/2024 Active 1 goal linked to scheduled/documen benjy intervention 1 goal intervention scheduled/document ed in this visit Risk for Falls Disciplines: Skilled Services 06/17/2024 Active 1 goal linked to scheduled/documen benjy intervention 1 goal intervention scheduled/document ed in this visit Nutrition/Hydration Disciplines: Skilled Services 06/17/2024 Active 1 goal linked to scheduled/documen benjy intervention 1 goal intervention scheduled/document ed in this visit SN Learning Assessment Disciplines: SN 06/17/2024 Active 1 goal linked to scheduled/documen benjy intervention 1 goal intervention scheduled/document ed in this visit SN Genitourinary disease process Disciplines: SN 06/17/2024 Active 1 goal linked to scheduled/documen benjy intervention 2 goal interventions scheduled/document ed in this visit Goals Goal Associated Problem Outcome Goal Met? Visit Notes Patient/caregiver will demonstrate ability to obtain, store, identify and administer ordered medications, keep accurate medication list in home, and adhere to medication schedule Description: Patient/caregiver will demonstrate ability to obtain, store, identify and administer ordered medications, keep accurate medication list in home, and adhere to medication schedule through need of care. Medication Education No Patient/caregiver will be able to identify and report symptoms of sepsis Description: Patient/caregiver will be able to identify signs/symptoms of sepsis infection and will verbalize actions to take if suspected through need of care. Sepsis No Manage risk for skin breakdown Description: Patient/caregiver will verbalize and demonstrate understanding of the risks and measures to be taken to monitor and prevent skin breakdown through need of care. Risk for skin breakdown No Patient to maintain parameters within physician-specified ranges throughout certification period Physician Specific Parameters No Manage Risk for falls Description: Patient/caregiver will verbalize knowledge of individualized fall prevention strategies through need of care. Risk for Falls No Manage Nutrition/Hydration Description: Patient/caregiver will verbalize/demonstrate knowledge of prescribed diet and/or healthy nutrition through need of care. Nutrition/Hydration No Demonstrate understanding of education Description: Patient and/or caregiver will verbalize understanding of educational instruction provided throughout certification period. SN Learning Assessment No Patient/Caregiver will verbalize understanding and demonstrate improved management of genitourinary disease/condition. Description: Patient/Caregiver will state understanding of genitourinary disease/condition and be able to teach back management strategies by 04/12/25. SN Genitourinary disease process No Interventions Intervention Associated Problem/Goal Status Variance Visit Notes Medication Education Description: Evaluate/instruct patient/caregiver on obtaining, storing, identifying and administering ordered medications as well as keeping accurate medication list in the home and adhereing to medication schedule Problem:Medication Education Goal:Patient/caregive r will demonstrate ability to obtain, store, identify and administer ordered medications, keep accurate medication list in home, and adhere to medication schedule Completed Patient instructed on adhering to medication schedule. Risk of Sepsis Description: Patient is at risk for sepsis. Monitor closely for s/s of sepsis. Problem:Sepsis Goal:Patient/caregive r will be able to identify and report symptoms of sepsis Completed Instruct on the risks and measures to be taken to prevent skin breakdown Description: Patient's Chapo Score is: 18. A Chapo score <= to 18 indicates risk for skin breakdown. Problem:Risk for skin breakdown Goal:Manage risk for skin breakdown Completed patient instructed on maintaining skin integrity including: Routine skin care SPO2 Description: Notify Clifford Estes MD and stop activity if pulse ox is <92% at rest. Problem:Physician Specific Parameters Goal:Patient to maintain parameters within physician-specified ranges throughout certification period Completed Instruct on individual fall risk factors and strategies to prevent falls and injuries caused by falls. Problem:Risk for Falls Goal:Manage Risk for falls Completed SN: Patient instructed on Managing Impaired Functional Mobility: Caregiver to provide assist with: Ambulation and ADL/IADLs Define patient s appetite/hydration status and implement strategies to improve compliance with prescribed diet and/or healthy nutrition. Problem:Nutrition/Hyd ration Goal:Manage Nutrition/Hydration Completed reinforced patient on implementing strategies to comply with healthy nutrition and adequate hydration Instruct and educate on knowledge deficits Problem:SN Learning Assessment Goal:Demonstrate understanding of education Completed patient verbalize and/or demonstrate understanding of nursing education completed today. Education methods include: verbal cues. Further education required to improve knowledge and compliance with fall prevention/home safety strategies, genitourinary care management, medication management and nutrition. Catheter- Change catheter Description: Change hannon catheter monthly and as needed using sterile technique, cleansing with betadine and inserting 16f/10cc specify catheter size/balloon fill amount. Problem:SN Genitourinary disease process Goal:Patient/Caregive r will verbalize understanding and demonstrate improved management of genitourinary disease/condition. Completed UTI- Instruct Patient/Caregiver on signs and symptoms of urinary tract infection, treatment measures, measures to prevent reoccurence, and when to notify physician of symptoms Problem:SN Genitourinary disease process Goal:Patient/Caregive r will verbalize understanding and demonstrate improved management of genitourinary disease/condition. Completed patient instructed on signs and symptoms of UTI and when to notify physician and preventative measures including: drink plenty of liquids, especially water and clean genitalia daily and keep area dry to prevent bacteria and yeast growth. [facility] Visit Details Visit Type -SN RECERT Discipline -Long-Term Problems Problem Description Start Date Status Goals Interve ntions Medication Education Disciplines: Skilled Services 06/17/2024 Active 1 goal linked to scheduled/documen benjy intervention 1 goal intervention scheduled/document ed in this visit Sepsis Disciplines: Skilled Services 06/17/2024 Active 1 goal linked to scheduled/documen benjy intervention 1 goal intervention scheduled/document ed in this visit Risk for skin breakdown Disciplines: Skilled Services 06/17/2024 Active 1 goal linked to scheduled/documen benjy intervention 1 goal intervention scheduled/document ed in this visit Physician Specific Parameters Disciplines: Skilled Services 06/17/2024 Active 1 goal linked to scheduled/documen benjy intervention 1 goal intervention scheduled/document ed in this visit Risk for Falls Disciplines: Skilled Services 06/17/2024 Active 1 goal linked to scheduled/documen benjy intervention 1 goal intervention scheduled/document ed in this visit Nutrition/Hydration Disciplines: Skilled Services 06/17/2024 Active 1 goal linked to scheduled/documen benjy intervention 1 goal intervention scheduled/document ed in this visit SN Learning Assessment Disciplines: 06/17/2024 Active 1 goal linked to scheduled/documen benjy intervention 1 goal intervention scheduled/document ed in this visit SN Genitourinary disease process Disciplines: 06/17/2024 Active 1 goal linked to scheduled/documen benjy intervention 2 goal interventions scheduled/document ed in this visit SN Gastrointestinal Disciplines: 06/17/2024 Active 1 goal linked to scheduled/documen benjy intervention 1 goal intervention scheduled/document ed in this visit Recertification Disciplines: Skilled Services 04/10/2025 Active 1 goal linked to scheduled/documen benjy intervention 1 goal intervention scheduled/document ed in this visit Goals Goal Associated Problem Outcome Goal Met? Visit Notes Patient/caregiver will demonstrate ability to obtain, store, identify and administer ordered medications, keep accurate medication list in home, and adhere to medication schedule Description: Patient/caregiver will demonstrate ability to obtain, store, identify and administer ordered medications, keep accurate medication list in home, and adhere to medication schedule through need of care. Medication Education No Patient/caregiver will be able to identify and report symptoms of sepsis Description: Patient/caregiver will be able to identify signs/symptoms of sepsis infection and will verbalize actions to take if suspected through need of care. Sepsis No Manage risk for skin breakdown Description: Patient/caregiver will verbalize and demonstrate understanding of the risks and measures to be taken to monitor and prevent skin breakdown through need of care. Risk for skin breakdown No Patient to maintain parameters within physician-specified ranges throughout certification period Physician Specific Parameters No Manage Risk for falls Description: Patient/caregiver will verbalize knowledge of individualized fall prevention strategies through need of care. Risk for Falls No Manage Nutrition/Hydration Description: Patient/caregiver will verbalize/demonstrate knowledge of prescribed diet and/or healthy nutrition through need of care. Nutrition/Hydration No Demonstrate understanding of education Description: Patient and/or caregiver will verbalize understanding of educational instruction provided throughout certification period. SN Learning Assessment No Patient/Caregiver will verbalize understanding and demonstrate improved management of genitourinary disease/condition. Description: Patient/Caregiver will state understanding of genitourinary disease/condition and be able to teach back management strategies by 06/11/25 SN Genitourinary disease process No Improved management of GI disease/condition Description: Patient/Caregiver will demonstrate understanding of GI education as evidenced by improved management of gastrointestinal disease/condition by 06/11/25 SN Gastrointestinal No Ongoing review of POC and need for skilled services Recertification No Interventions Intervention Associated Problem/Goal Status Variance Visit Notes Medication Education Description: Evaluate/instruct patient/caregiver on obtaining, storing, identifying and administering ordered medications as well as keeping accurate medication list in the home and adhereing to medication schedule Problem:Medication Education Goal:Patient/caregiver will demonstrate ability to obtain, store, identify and administer ordered medications, keep accurate medication list in home, and adhere to medication schedule Completed Patient and Caregiver instructed on adhering to medication schedule. Risk of Sepsis Description: Patient is at risk for sepsis. Monitor closely for s/s of sepsis. Problem:Sepsis Goal:Patient/caregiver will be able to identify and report symptoms of sepsis Completed Instruct on the risks and measures to be taken to prevent skin breakdown Description: Patient's Chapo Score is: 18. A Chapo score <= to 18 indicates risk for skin breakdown. Problem:Risk for skin breakdown Goal:Manage risk for skin breakdown Completed patient and caregiver instructed on maintaining skin integrity including: The need for every 1-2 hour turns, position changes, and maintaining activity as tolerated and Routine skin care SPO2 Description: Notify Clifford Estse MD and stop activity if pulse ox is <92% at rest. Problem:Physician Specific Parameters Goal:Patient to maintain parameters within physician-specified ranges throughout certification period Completed Instruct on individual fall risk factors and strategies to prevent falls and injuries caused by falls. Problem:Risk for Falls Goal:Manage Risk for falls Completed SN: Patient and Caregiver instructed on Managing Impaired Functional Mobility: Use assistive device(s): quad cane and Caregiver to provide assist with: Ambulation, Transfers and ADL/IADLs Define patient s appetite/hydration status and implement strategies to improve compliance with prescribed diet and/or healthy nutrition. Problem:Nutrition/Hydr ation Goal:Manage Nutrition/Hydration Completed reinforced patient and caregiver on implementing strategies to comply with healthy nutrition and adequate hydration Instruct and educate on knowledge deficits Problem:SN Learning Assessment Goal:Demonstrate understanding of education Completed patient and caregiver verbalize and/or demonstrate understanding of nursing education completed today. Education methods include: verbal cues and visual cues. Further education required to improve knowledge and compliance with fall prevention/home safety strategies, gastrointestinal care management, genitourinary care management, medication management and nutrition. Catheter- Instruct Patient/Caregiver on use and management of a urinary catheter Description: Urinary catheter is a hannon catheter. Problem:SN Genitourinary disease process Goal:Patient/Caregiver will verbalize understanding and demonstrate improved management of genitourinary disease/condition. Completed patient and caregiver instructed on catheter management including: potential complications and actions to take. UTI- Instruct Patient/Caregiver on signs and symptoms of urinary tract infection, treatment measures, measures to prevent reoccurence, and when to notify physician of symptoms Problem:SN Genitourinary disease process Goal:Patient/Caregiver will verbalize understanding and demonstrate improved management of genitourinary disease/condition. Completed patient and caregiver instructed on signs and symptoms of UTI and when to notify physician and preventative measures including: drink plenty of liquids, especially water and clean genitalia daily and keep area dry to prevent bacteria and yeast growth. Constipation: Instruct Patient/Caregiver on measures to manage constipation Problem:SN Gastrointestinal Goal:Improved management of GI disease/condition Completed patient and caregiver instructed on the following measures to relieve constipation: increase fluids and increase activity as tolerated. Instructed on use of laxative and enema. Continued need for Home Care Services Description: POC and certification renewed due to continuous senior living needs. Problem:Recertificatio n Goal:Ongoing review of POC and need for skilled services Completed documented in this encounter [facility]'s home Plan of care note* Visit Details Visit Type -SN ROUTINE Discipline -Long-Term Problems Problem Description Start Date Status Goals Interve ntions Medication Education Disciplines: Skilled Services 06/17/2024 Active 1 goal linked to scheduled/documen benjy intervention 1 goal intervention scheduled/document ed in this visit Sepsis Disciplines: Skilled Services 06/17/2024 Active 1 goal linked to scheduled/documen benjy intervention 1 goal intervention scheduled/document ed in this visit Risk for skin breakdown Disciplines: Skilled Services 06/17/2024 Active 1 goal linked to scheduled/documen benjy intervention 1 goal intervention scheduled/document ed in this visit Physician Specific Parameters Disciplines: Skilled Services 06/17/2024 Active 1 goal linked to scheduled/documen benjy intervention 1 goal intervention scheduled/document ed in this visit Risk for Falls Disciplines: Skilled Services 06/17/2024 Active 1 goal linked to scheduled/documen benjy intervention 1 goal intervention scheduled/document ed in this visit Nutrition/Hydration Disciplines: Skilled Services 06/17/2024 Active 1 goal linked to scheduled/documen benjy intervention 1 goal intervention scheduled/document ed in this visit SN Learning Assessment Disciplines: 06/17/2024 Active 1 goal linked to scheduled/documen benjy intervention 1 goal intervention scheduled/document ed in this visit SN Genitourinary disease process Disciplines: 06/17/2024 Active 1 goal linked to scheduled/documen benjy intervention 2 goal interventions scheduled/document ed in this visit SN Gastrointestinal Disciplines: 06/17/2024 Active 1 goal linked to scheduled/documen benjy intervention 1 goal intervention scheduled/document ed in this visit Goals Goal Associated Problem Outcome Goal Met? Visit Notes Patient/caregiver will demonstrate ability to obtain, store, identify and administer ordered medications, keep accurate medication list in home, and adhere to medication schedule Description: Patient/caregiver will demonstrate ability to obtain, store, identify and administer ordered medications, keep accurate medication list in home, and adhere to medication schedule through need of care. Medication Education No Patient/caregiver will be able to identify and report symptoms of sepsis Description: Patient/caregiver will be able to identify signs/symptoms of sepsis infection and will verbalize actions to take if suspected through need of care. Sepsis No Manage risk for skin breakdown Description: Patient/caregiver will verbalize and demonstrate understanding of the risks and measures to be taken to monitor and prevent skin breakdown through need of care. Risk for skin breakdown No Patient to maintain parameters within physician-specified ranges throughout certification period Physician Specific Parameters No Manage Risk for falls Description: Patient/caregiver will verbalize knowledge of individualized fall prevention strategies through need of care. Risk for Falls No Manage Nutrition/Hydration Description: Patient/caregiver will verbalize/demonstrate knowledge of prescribed diet and/or healthy nutrition through need of care. Nutrition/Hydration No Demonstrate understanding of education Description: Patient and/or caregiver will verbalize understanding of educational instruction provided throughout certification period. SN Learning Assessment No Patient/Caregiver will verbalize understanding and demonstrate improved management of genitourinary disease/condition. Description: Patient/Caregiver will state understanding of genitourinary disease/condition and be able to teach back management strategies by 06/11/25 SN Genitourinary disease process No Improved management of GI disease/condition Description: Patient/Caregiver will demonstrate understanding of GI education as evidenced by improved management of gastrointestinal disease/condition by 06/11/25 SN Gastrointestinal No Interventions Intervention Associated Problem/Goal Status Variance Visit Notes Medication Education Description: Evaluate/instruct patient/caregiver on obtaining, storing, identifying and administering ordered medications as well as keeping accurate medication list in the home and adhereing to medication schedule Problem:Medication Education Goal:Patient/caregiver will demonstrate ability to obtain, store, identify and administer ordered medications, keep accurate medication list in home, and adhere to medication schedule Completed Patient and Caregiver instructed on adhering to medication schedule. Risk of Sepsis Description: Patient is at risk for sepsis. Monitor closely for s/s of sepsis. Problem:Sepsis Goal:Patient/caregiver will be able to identify and report symptoms of sepsis Completed Instruct on the risks and measures to be taken to prevent skin breakdown Description: Patient's Chapo Score is: 18. A Chapo score <= to 18 indicates risk for skin breakdown. Problem:Risk for skin breakdown Goal:Manage risk for skin breakdown Completed patient and caregiver instructed on maintaining skin integrity including: The need for every 1-2 hour turns, position changes, and maintaining activity as tolerated SPO2 Description: Notify Clifford Estes MD and stop activity if pulse ox is <92% at rest. Problem:Physician Specific Parameters Goal:Patient to maintain parameters within physician-specified ranges throughout certification period Completed Instruct on individual fall risk factors and strategies to prevent falls and injuries caused by falls. Problem:Risk for Falls Goal:Manage Risk for falls Completed SN: Patient and Caregiver instructed on Managing Impaired Functional Mobility: Caregiver to provide assist with: Ambulation, Transfers and ADL/IADLs Define patient s appetite/hydration status and implement strategies to improve compliance with prescribed diet and/or healthy nutrition. Problem:Nutrition/Hydr ation Goal:Manage Nutrition/Hydration Completed reinforced patient and caregiver on implementing strategies to comply with healthy nutrition and adequate hydration Instruct and educate on knowledge deficits Problem:SN Learning Assessment Goal:Demonstrate understanding of education Completed patient and caregiver verbalize and/or demonstrate understanding of nursing education completed today. Education methods include: verbal cues. Further education required to improve knowledge and compliance with fall prevention/home safety strategies, gastrointestinal care management, genitourinary care management, medication management and nutrition. Catheter- Instruct Patient/Caregiver on use and management of a urinary catheter Description: Urinary catheter is a hannon catheter. Problem:SN Genitourinary disease process Goal:Patient/Caregiver will verbalize understanding and demonstrate improved management of genitourinary disease/condition. Completed patient and caregiver instructed on catheter management including: potential complications and actions to take and daily irrigation. UTI- Instruct Patient/Caregiver on signs and symptoms of urinary tract infection, treatment measures, measures to prevent reoccurence, and when to notify physician of symptoms Problem:SN Genitourinary disease process Goal:Patient/Caregiver will verbalize understanding and demonstrate improved management of genitourinary disease/condition. Completed patient and caregiver instructed on signs and symptoms of UTI and when to notify physician and preventative measures including: drink plenty of liquids, especially water, cleanse hands before performing personal care and clean genitalia daily and keep area dry to prevent bacteria and yeast growth. Constipation: Instruct Patient/Caregiver on measures to manage constipation Problem:SN Gastrointestinal Goal:Improved management of GI disease/condition Completed patient and caregiver instructed on the following measures to relieve constipation: increase fluids and increase activity as tolerated. Instructed on use of enema and suppositories[facility] Visit Details Visit Type -SN PRN VISIT Discipline -Long-Term Problems Problem Description Start Date Status Goals Interve ntions Medication Education Disciplines: Skilled Services 06/17/2024 Active 1 goal linked to scheduled/documen benjy intervention 1 goal intervention scheduled/document ed in this visit Physician Specific Parameters Disciplines: Skilled Services 06/17/2024 Active 1 goal linked to scheduled/documen benjy intervention 1 goal intervention scheduled/document ed in this visit Risk for Falls Disciplines: Skilled Services 06/17/2024 Active 1 goal linked to scheduled/documen benjy intervention 1 goal intervention scheduled/document ed in this visit Nutrition/Hydration Disciplines: Skilled Services 06/17/2024 Active 1 goal linked to scheduled/documen benjy intervention 1 goal intervention scheduled/document ed in this visit SN Learning Assessment Disciplines: SN 06/17/2024 Active 1 goal linked to scheduled/documen benjy intervention 1 goal intervention scheduled/document ed in this visit SN Genitourinary disease process Disciplines: SN 06/17/2024 Active 1 goal linked to scheduled/documen benjy intervention 1 goal intervention scheduled/document ed in this visit Goals Goal Associated Problem Outcome Goal Met? Visit Notes Patient/caregiver will demonstrate ability to obtain, store, identify and administer ordered medications, keep accurate medication list in home, and adhere to medication schedule Description: Patient/caregiver will demonstrate ability to obtain, store, identify and administer ordered medications, keep accurate medication list in home, and adhere to medication schedule through need of care. Medication Education No Patient to maintain parameters within physician-specified ranges throughout certification period Physician Specific Parameters No Manage Risk for falls Description: Patient/caregiver will verbalize knowledge of individualized fall prevention strategies through need of care. Risk for Falls No Manage Nutrition/Hydration Description: Patient/caregiver will verbalize/demonstrate knowledge of prescribed diet and/or healthy nutrition through need of care. Nutrition/Hydration No Demonstrate understanding of education Description: Patient and/or caregiver will verbalize understanding of educational instruction provided throughout certification period. SN Learning Assessment No Patient/Caregiver will verbalize understanding and demonstrate improved management of genitourinary disease/condition. Description: Patient/Caregiver will state understanding of genitourinary disease/condition and be able to teach back management strategies by 06/11/25 SN Genitourinary disease process No Interventions Intervention Associated Problem/Goal Status Variance Visit Notes Medication Education Description: Evaluate/instruct patient/caregiver on obtaining, storing, identifying and administering ordered medications as well as keeping accurate medication list in the home and adhereing to medication schedule Problem:Medication Education Goal:Patient/caregive r will demonstrate ability to obtain, store, identify and administer ordered medications, keep accurate medication list in home, and adhere to medication schedule Completed Patient instructed on adhering to medication schedule. SPO2 Description: Notify Clifford Estes MD and stop activity if pulse ox is <92% at rest. Problem:Physician Specific Parameters Goal:Patient to maintain parameters within physician-specified ranges throughout certification period Completed Instruct on individual fall risk factors and strategies to prevent falls and injuries caused by falls. Problem:Risk for Falls Goal:Manage Risk for falls Completed SN: Patient and Caregiver instructed on Managing Impaired Functional Mobility: Caregiver to provide assist with: Ambulation, Transfers and ADL/IADLs Define patient s appetite/hydration status and implement strategies to improve compliance with prescribed diet and/or healthy nutrition. Problem:Nutrition/Hyd ration Goal:Manage Nutrition/Hydration Completed reinforced patient on implementing strategies to comply with adequate hydration Instruct and educate on knowledge deficits Problem:SN Learning Assessment Goal:Demonstrate understanding of education Completed patient and caregiver verbalize and/or demonstrate understanding of nursing education completed today. Education methods include: verbal cues. Further education required to improve knowledge and compliance with fall prevention/home safety strategies, genitourinary care management and medication management. UTI- Instruct Patient/Caregiver on signs and symptoms of urinary tract infection, treatment measures, measures to prevent reoccurence, and when to notify physician of symptoms Problem:SN Genitourinary disease process Goal:Patient/Caregive r will verbalize understanding and demonstrate improved management of genitourinary disease/condition. Completed patient and caregiver instructed on signs and symptoms of UTI and when to notify physician and preventative measures including: drink plenty of liquids, especially water. documented in this encounter [facility]'s home Plan of care note* Visit Details Visit Type -SN ROUTINE Discipline -Long-Term Problems Problem Description Start Date Status Goals Interve ntions Medication Education Disciplines: Skilled Services 06/17/2024 Active 1 goal linked to scheduled/documen benjy intervention 1 goal intervention scheduled/document ed in this visit Sepsis Disciplines: Skilled Services 06/17/2024 Active 1 goal linked to scheduled/documen benjy intervention 1 goal intervention scheduled/document ed in this visit Risk for skin breakdown Disciplines: Skilled Services 06/17/2024 Active 1 goal linked to scheduled/documen benjy intervention 1 goal intervention scheduled/document ed in this visit Physician Specific Parameters Disciplines: Skilled Services 06/17/2024 Active 1 goal linked to scheduled/documen benjy intervention 1 goal intervention scheduled/document ed in this visit Risk for Falls Disciplines: Skilled Services 06/17/2024 Active 1 goal linked to scheduled/documen benjy intervention 1 goal intervention scheduled/document ed in this visit Nutrition/Hydration Disciplines: Skilled Services 06/17/2024 Active 1 goal linked to scheduled/documen benjy intervention 1 goal intervention scheduled/document ed in this visit SN Learning Assessment Disciplines: SN 06/17/2024 Active 1 goal linked to scheduled/documen ebnjy intervention 1 goal intervention scheduled/document ed in this visit SN Genitourinary disease process Disciplines: SN 06/17/2024 Active 1 goal linked to scheduled/documen benjy intervention 3 goal interventions scheduled/document ed in this visit SN Gastrointestinal Disciplines: 06/17/2024 Active 1 goal linked to scheduled/documen benjy intervention 1 goal intervention scheduled/document ed in this visit Goals Goal Associated Problem Outcome Goal Met? Visit Notes Patient/caregiver will demonstrate ability to obtain, store, identify and administer ordered medications, keep accurate medication list in home, and adhere to medication schedule Description: Patient/caregiver will demonstrate ability to obtain, store, identify and administer ordered medications, keep accurate medication list in home, and adhere to medication schedule through need of care. Medication Education No Patient/caregiver will be able to identify and report symptoms of sepsis Description: Patient/caregiver will be able to identify signs/symptoms of sepsis infection and will verbalize actions to take if suspected through need of care. Sepsis No Manage risk for skin breakdown Description: Patient/caregiver will verbalize and demonstrate understanding of the risks and measures to be taken to monitor and prevent skin breakdown through need of care. Risk for skin breakdown No Patient to maintain parameters within physician-specified ranges throughout certification period Physician Specific Parameters No Manage Risk for falls Description: Patient/caregiver will verbalize knowledge of individualized fall prevention strategies through need of care. Risk for Falls No Manage Nutrition/Hydration Description: Patient/caregiver will verbalize/demonstrate knowledge of prescribed diet and/or healthy nutrition through need of care. Nutrition/Hydration No Demonstrate understanding of education Description: Patient and/or caregiver will verbalize understanding of educational instruction provided throughout certification period. SN Learning Assessment No Patient/Caregiver will verbalize understanding and demonstrate improved management of genitourinary disease/condition. Description: Patient/Caregiver will state understanding of genitourinary disease/condition and be able to teach back management strategies by 06/11/25 Genitourinary disease process No Improved management of GI disease/condition Description: Patient/Caregiver will demonstrate understanding of GI education as evidenced by improved management of gastrointestinal disease/condition by 06/11/25 Gastrointestinal No Interventions Intervention Associated Problem/Goal Status Variance Visit Notes Medication Education Description: Evaluate/instruct patient/caregiver on obtaining, storing, identifying and administering ordered medications as well as keeping accurate medication list in the home and adhereing to medication schedule Problem:Medication Education Goal:Patient/caregiver will demonstrate ability to obtain, store, identify and administer ordered medications, keep accurate medication list in home, and adhere to medication schedule Completed Patient instructed on adhering to medication schedule. Risk of Sepsis Description: Patient is at risk for sepsis. Monitor closely for s/s of sepsis. Problem:Sepsis Goal:Patient/caregiver will be able to identify and report symptoms of sepsis Completed Instruct on the risks and measures to be taken to prevent skin breakdown Description: Patient's Chapo Score is: 18. A Chapo score <= to 18 indicates risk for skin breakdown. Problem:Risk for skin breakdown Goal:Manage risk for skin breakdown Completed patient and caregiver instructed on maintaining skin integrity including: Routine skin care SPO2 Description: Notify Clifford Estes MD and stop activity if pulse ox is <92% at rest. Problem:Physician Specific Parameters Goal:Patient to maintain parameters within physician-specified ranges throughout certification period Completed Instruct on individual fall risk factors and strategies to prevent falls and injuries caused by falls. Problem:Risk for Falls Goal:Manage Risk for falls Completed SN: Patient and Caregiver instructed on Managing Impaired Functional Mobility: Use assistive device(s): modified cane and Caregiver to provide assist with: Ambulation, Transfers and ADL/IADLs Define patient s appetite/hydration status and implement strategies to improve compliance with prescribed diet and/or healthy nutrition. Problem:Nutrition/Hydra tion Goal:Manage Nutrition/Hydration Completed reinforced patient on implementing strategies to comply with healthy nutrition and adequate hydration Instruct and educate on knowledge deficits Problem:SN Learning Assessment Goal:Demonstrate understanding of education Completed patient and caregiver verbalize and/or demonstrate understanding of nursing education completed today. Education methods include: verbal cues and visual cues. Further education required to improve knowledge and compliance with fall prevention/home safety strategies, genitourinary care management, medication management and nutrition. Catheter- Change catheter Description: Change hannon catheter monthly and as needed using sterile technique, cleansing with betadine and inserting [id number]/[id number] specify catheter size/balloon fill amount. Problem:SN Genitourinary disease process Goal:Patient/Caregiver will verbalize understanding and demonstrate improved management of genitourinary disease/condition. Completed Catheter- Instruct Patient/Caregiver on use and management of a urinary catheter Description: Urinary catheter is a hannon catheter. Problem:SN Genitourinary disease process Goal:Patient/Caregiver will verbalize understanding and demonstrate improved management of genitourinary disease/condition. Completed patient and caregiver instructed on catheter management including: cleansing around catheter insertion site and use of securement device. UTI- Instruct Patient/Caregiver on signs and symptoms of urinary tract infection, treatment measures, measures to prevent reoccurence, and when to notify physician of symptoms Problem:SN Genitourinary disease process Goal:Patient/Caregiver will verbalize understanding and demonstrate improved management of genitourinary disease/condition. Completed patient and caregiver instructed on signs and symptoms of UTI and when to notify physician. Constipation: Instruct Patient/Caregiver on measures to manage constipation Problem:SN Gastrointestinal Goal:Improved management of GI disease/condition Completed patient and caregiver instructed on the following measures to relieve constipation: increase fluids as tolerated. Instructed on use of stool softener, laxative and suppositories. [facility] Visit Details Visit Type -SN RECERT Discipline -Long-Term Problems Problem Description Start Date Status Goals Interve ntions Medication Education Disciplines: Skilled Services 06/17/2024 Active 1 goal linked to scheduled/documen benjy intervention 1 goal intervention scheduled/documen benjy in this visit Sepsis Disciplines: Skilled Services 06/17/2024 Active 1 goal linked to scheduled/documen benjy intervention 1 goal intervention scheduled/documen benjy in this visit Risk for skin breakdown Disciplines: Skilled Services 06/17/2024 Active 1 goal linked to scheduled/documen benjy intervention 1 goal intervention scheduled/documen benjy in this visit Physician Specific Parameters Disciplines: Skilled Services 06/17/2024 Active 1 goal linked to scheduled/documen benjy intervention 1 goal intervention scheduled/documen benjy in this visit Risk for Falls Disciplines: Skilled Services 06/17/2024 Active 1 goal linked to scheduled/documen benjy intervention 1 goal intervention scheduled/documen benjy in this visit Nutrition/Hydratio n Disciplines: Skilled Services 06/17/2024 Active 1 goal linked to scheduled/documen benjy intervention 1 goal intervention scheduled/documen benjy in this visit SN Learning Assessment Disciplines: 06/17/2024 Active 1 goal linked to scheduled/documen benjy intervention 1 goal intervention scheduled/documen benjy in this visit SN Genitourinary disease process Disciplines: 06/17/2024 Active 1 goal linked to scheduled/documen benjy intervention 2 goal interventions scheduled/documen benjy in this visit SN Gastrointestinal Disciplines: SN 06/17/2024 Active 1 goal linked to scheduled/documen benjy intervention 1 goal intervention scheduled/documen benjy in this visit Recertification Disciplines: Skilled Services 04/10/2025 Resolved on 06/10/2025 1 goal linked to scheduled/documen benjy intervention Goals Goal Associated Problem Outcome Goal Met? Visit Notes Patient/caregiver will demonstrate ability to obtain, store, identify and administer ordered medications, keep accurate medication list in home, and adhere to medication schedule Description: Patient/caregiver will demonstrate ability to obtain, store, identify and administer ordered medications, keep accurate medication list in home, and adhere to medication schedule by 08/10/25. Medication Education No Patient/caregiver will be able to identify and report symptoms of sepsis Description: Patient/caregiver will be able to identify signs/symptoms of sepsis infection and will verbalize actions to take if suspected by 08/10/25. Sepsis No Manage risk for skin breakdown Description: Patient/caregiver will verbalize and demonstrate understanding of the risks and measures to be taken to monitor and prevent skin breakdown by 08/10/25. Risk for skin breakdown No Patient to maintain parameters within physician-specified ranges throughout certification period Physician Specific Parameters No Manage Risk for falls Description: Patient/caregiver will verbalize knowledge of individualized fall prevention strategies by 08/10/25. Risk for Falls No Manage Nutrition/Hydration Description: Patient/caregiver will verbalize/demonstrate knowledge of prescribed diet and/or healthy nutrition by 08/10/25. Nutrition/Hydration No Demonstrate understanding of education Description: Patient and/or caregiver will verbalize understanding of educational instruction provided by 08/10/25 SN Learning Assessment No Patient/Caregiver will verbalize understanding and demonstrate improved management of genitourinary disease/condition. Description: Patient/Caregiver will state understanding of genitourinary disease/condition and be able to teach back management strategies by 08/10/25 Genitourinary disease process No Improved management of GI disease/condition Description: Patient/Caregiver will demonstrate understanding of GI education as evidenced by improved management of gastrointestinal disease/condition by 08/10/25 Gastrointestinal No Ongoing review of POC and need for skilled services Recertification Completed Yes Interventions Intervention Associated Problem/Goal Status Variance Visit Notes Medication Education Description: Evaluate/instruct patient/caregiver on obtaining, storing, identifying and administering ordered medications as well as keeping accurate medication list in the home and adhereing to medication schedule Problem:Medication Education Goal:Patient/caregiver will demonstrate ability to obtain, store, identify and administer ordered medications, keep accurate medication list in home, and adhere to medication schedule Completed Patient instructed on adhering to medication schedule. Risk of Sepsis Description: Patient is at risk for sepsis. Monitor closely for s/s of sepsis. Problem:Sepsis Goal:Patient/caregiver will be able to identify and report symptoms of sepsis Completed Instruct on the risks and measures to be taken to prevent skin breakdown Description: Patient's Chapo Score is: 18. A Chapo score <= to 18 indicates risk for skin breakdown. Problem:Risk for skin breakdown Goal:Manage risk for skin breakdown Completed patient and caregiver instructed on maintaining skin integrity including: Routine skin care SPO2 Description: Notify Clifford Estes MD and stop activity if pulse ox is <92% at rest. Problem:Physician Specific Parameters Goal:Patient to maintain parameters within physician-specified ranges throughout certification period Completed Instruct on individual fall risk factors and strategies to prevent falls and injuries caused by falls. Problem:Risk for Falls Goal:Manage Risk for falls Completed SN: Patient instructed on Eliminating Environmental Hazards: Keep rooms and walkways well lit Managing Impaired Functional Mobility: Caregiver to provide assist with: Ambulation, Transfers and ADL/IADLs Define patient s appetite/hydration status and implement strategies to improve compliance with prescribed diet and/or healthy nutrition. Problem:Nutrition/Hydr ation Goal:Manage Nutrition/Hydration Completed reinforced patient on implementing strategies to comply with healthy nutrition and adequate hydration Instruct and educate on knowledge deficits Problem:SN Learning Assessment Goal:Demonstrate understanding of education Completed patient and caregiver verbalize and/or demonstrate understanding of nursing education completed today. Education methods include: verbal cues and visual cues. Further education required to improve knowledge and compliance with fall prevention/home safety strategies, gastrointestinal care management, genitourinary care management, medication management and nutrition. Catheter- Instruct Patient/Caregiver on use and management of a urinary catheter Description: Urinary catheter is a hannon catheter. Problem:SN Genitourinary disease process Goal:Patient/Caregiver will verbalize understanding and demonstrate improved management of genitourinary disease/condition. Completed patient and caregiver instructed on catheter management including: cleansing around catheter insertion site, positioning the catheter and urinary bag and potential complications and actions to take. UTI- Instruct Patient/Caregiver on signs and symptoms of urinary tract infection, treatment measures, measures to prevent reoccurence, and when to notify physician of symptoms Problem:SN Genitourinary disease process Goal:Patient/Caregiver will verbalize understanding and demonstrate improved management of genitourinary disease/condition. Completed patient and caregiver instructed on signs and symptoms of UTI and when to notify physician and preventative measures including: drink plenty of liquids, especially water and clean genitalia daily and keep area dry to prevent bacteria and yeast growth. Constipation: Instruct Patient/Caregiver on measures to manage constipation Problem:SN Gastrointestinal Goal:Improved management of GI disease/condition Completed patient and caregiver instructed on the following measures to relieve constipation: increase fluids and increase activity as tolerated. Instructed on use of laxative, enema and suppositories. documented in this encounter [facility] Plan of care note* Visit Details Visit Type -SN ROUTINE Discipline -Long-Term Problems Problem Description Start Date Status Goals Interve ntions Medication Education Disciplines: Skilled Services 06/17/2024 Active 1 goal linked to scheduled/documen benjy intervention 1 goal intervention scheduled/document ed in this visit Sepsis Disciplines: Skilled Services 06/17/2024 Active 1 goal linked to scheduled/documen benjy intervention 1 goal intervention scheduled/document ed in this visit Risk for skin breakdown Disciplines: Skilled Services 06/17/2024 Active 1 goal linked to scheduled/documen benjy intervention 1 goal intervention scheduled/document ed in this visit Physician Specific Parameters Disciplines: Skilled Services 06/17/2024 Active 1 goal linked to scheduled/documen benjy intervention 1 goal intervention scheduled/document ed in this visit Risk for Falls Disciplines: Skilled Services 06/17/2024 Active 1 goal linked to scheduled/documen benjy intervention 1 goal intervention scheduled/document ed in this visit Nutrition/Hydration Disciplines: Skilled Services 06/17/2024 Active 1 goal linked to scheduled/documen benjy intervention 1 goal intervention scheduled/document ed in this visit SN Learning Assessment Disciplines: 06/17/2024 Active 1 goal linked to scheduled/documen benjy intervention 1 goal intervention scheduled/document ed in this visit SN Genitourinary disease process Disciplines: 06/17/2024 Active 1 goal linked to scheduled/documen benjy intervention 2 goal interventions scheduled/document ed in this visit SN Gastrointestinal Disciplines: 06/17/2024 Active 1 goal linked to scheduled/documen benjy intervention 1 goal intervention scheduled/document ed in this visit Goals Goal Associated Problem Outcome Goal Met? Visit Notes Patient/caregiver will demonstrate ability to obtain, store, identify and administer ordered medications, keep accurate medication list in home, and adhere to medication schedule Description: Patient/caregiver will demonstrate ability to obtain, store, identify and administer ordered medications, keep accurate medication list in home, and adhere to medication schedule by 08/10/25. Medication Education No Patient/caregiver will be able to identify and report symptoms of sepsis Description: Patient/caregiver will be able to identify signs/symptoms of sepsis infection and will verbalize actions to take if suspected by 08/10/25. Sepsis No Manage risk for skin breakdown Description: Patient/caregiver will verbalize and demonstrate understanding of the risks and measures to be taken to monitor and prevent skin breakdown by 08/10/25. Risk for skin breakdown No Patient to maintain parameters within physician-specified ranges throughout certification period Physician Specific Parameters No Manage Risk for falls Description: Patient/caregiver will verbalize knowledge of individualized fall prevention strategies by 08/10/25. Risk for Falls No Manage Nutrition/Hydration Description: Patient/caregiver will verbalize/demonstrate knowledge of prescribed diet and/or healthy nutrition by 08/10/25. Nutrition/Hydration No Demonstrate understanding of education Description: Patient and/or caregiver will verbalize understanding of educational instruction provided by 08/10/25 SN Learning Assessment No Patient/Caregiver will verbalize understanding and demonstrate improved management of genitourinary disease/condition. Description: Patient/Caregiver will state understanding of genitourinary disease/condition and be able to teach back management strategies by 08/10/25 SN Genitourinary disease process No Improved management of GI disease/condition Description: Patient/Caregiver will demonstrate understanding of GI education as evidenced by improved management of gastrointestinal disease/condition by 08/10/25 SN Gastrointestinal No Interventions Intervention Associated Problem/Goal Status Variance Visit Notes Medication Education Description: Evaluate/instruct patient/caregiver on obtaining, storing, identifying and administering ordered medications as well as keeping accurate medication list in the home and adhereing to medication schedule Problem:Medication Education Goal:Patient/caregiver will demonstrate ability to obtain, store, identify and administer ordered medications, keep accurate medication list in home, and adhere to medication schedule Performed Patient instructed on adhering to medication schedule. Risk of Sepsis Description: Patient is at risk for sepsis. Monitor closely for s/s of sepsis. Problem:Sepsis Goal:Patient/caregiver will be able to identify and report symptoms of sepsis Performed Instruct on the risks and measures to be taken to prevent skin breakdown Description: Patient's Chapo Score is: 18. A Chapo score <= to 18 indicates risk for skin breakdown. Problem:Risk for skin breakdown Goal:Manage risk for skin breakdown Performed patient and caregiver instructed on maintaining skin integrity including: The need for every 1-2 hour turns, position changes, and maintaining activity as tolerated and Routine skin care SPO2 Description: Notify Clifford Estes MD and stop activity if pulse ox is <92% at rest. Problem:Physician Specific Parameters Goal:Patient to maintain parameters within physician-specified ranges throughout certification period Performed Instruct on individual fall risk factors and strategies to prevent falls and injuries caused by falls. Problem:Risk for Falls Goal:Manage Risk for falls Performed SN: Patient and Caregiver instructed on Managing Impaired Functional Mobility: Caregiver to provide assist with: ADL/IADLs Define patient s appetite/hydration status and implement strategies to improve compliance with prescribed diet and/or healthy nutrition. Problem:Nutrition/Hydr ation Goal:Manage Nutrition/Hydration Performed reinforced patient on implementing strategies to comply with healthy nutrition and adequate hydration Instruct and educate on knowledge deficits Problem:SN Learning Assessment Goal:Demonstrate understanding of education Performed patient and caregiver verbalize and/or demonstrate understanding of nursing education completed today. Education methods include: verbal cues. Further education required to improve knowledge and compliance with fall prevention/home safety strategies, gastrointestinal care management, genitourinary care management, medication management and nutrition. Catheter- Instruct Patient/Caregiver on use and management of a urinary catheter Description: Urinary catheter is a hannon catheter. Problem:SN Genitourinary disease process Goal:Patient/Caregiver will verbalize understanding and demonstrate improved management of genitourinary disease/condition. Performed caregiver instructed on catheter management including: potential complications and actions to take. UTI- Instruct Patient/Caregiver on signs and symptoms of urinary tract infection, treatment measures, measures to prevent reoccurence, and when to notify physician of symptoms Problem:SN Genitourinary disease process Goal:Patient/Caregiver will verbalize understanding and demonstrate improved management of genitourinary disease/condition. Performed patient and caregiver instructed on signs and symptoms of UTI and when to notify physician and preventative measures including: drink plenty of liquids, especially water and clean genitalia daily and keep area dry to prevent bacteria and yeast growth. Constipation: Instruct Patient/Caregiver on measures to manage constipation Problem:SN Gastrointestinal Goal:Improved management of GI disease/condition Performed patient and caregiver instructed on the following measures to relieve constipation: daily bowel routine as tolerated. Instructed on use of stool softener, laxative, enema and suppositories. documented in this encounter [facility] Plan of care note* Visit Details Visit Type -SN ROUTINE Discipline -Long-Term Problems Problem Description Start Date Status Goals Interve ntions Medication Education Disciplines: Skilled Services 06/17/2024 Active 1 goal linked to scheduled/documen benjy intervention 1 goal intervention scheduled/document ed in this visit Sepsis Disciplines: Skilled Services 06/17/2024 Active 1 goal linked to scheduled/documen benjy intervention 1 goal intervention scheduled/document ed in this visit Risk for skin breakdown Disciplines: Skilled Services 06/17/2024 Active 1 goal linked to scheduled/documen benjy intervention 1 goal intervention scheduled/document ed in this visit Physician Specific Parameters Disciplines: Skilled Services 06/17/2024 Active 1 goal linked to scheduled/documen benjy intervention 1 goal intervention scheduled/document ed in this visit Risk for Falls Disciplines: Skilled Services 06/17/2024 Active 1 goal linked to scheduled/documen benjy intervention 1 goal intervention scheduled/document ed in this visit Nutrition/Hydration Disciplines: Skilled Services 06/17/2024 Active 1 goal linked to scheduled/documen benjy intervention 1 goal intervention scheduled/document ed in this visit SN Learning Assessment Disciplines: SN 06/17/2024 Active 1 goal linked to scheduled/documen benjy intervention 1 goal intervention scheduled/document ed in this visit SN Genitourinary disease process Disciplines: SN 06/17/2024 Active 1 goal linked to scheduled/documen benjy intervention 2 goal interventions scheduled/document ed in this visit SN Gastrointestinal Disciplines: SN 06/17/2024 Active 1 goal linked to scheduled/documen benjy intervention 1 goal intervention scheduled/document ed in this visit Goals Goal Associated Problem Outcome Goal Met? Visit Notes Patient/caregiver will demonstrate ability to obtain, store, identify and administer ordered medications, keep accurate medication list in home, and adhere to medication schedule Description: Patient/caregiver will demonstrate ability to obtain, store, identify and administer ordered medications, keep accurate medication list in home, and adhere to medication schedule by 08/10/25. Medication Education No Patient/caregiver will be able to identify and report symptoms of sepsis Description: Patient/caregiver will be able to identify signs/symptoms of sepsis infection and will verbalize actions to take if suspected by 08/10/25. Sepsis No Manage risk for skin breakdown Description: Patient/caregiver will verbalize and demonstrate understanding of the risks and measures to be taken to monitor and prevent skin breakdown by 08/10/25. Risk for skin breakdown No Patient to maintain parameters within physician-specified ranges throughout certification period Physician Specific Parameters No Manage Risk for falls Description: Patient/caregiver will verbalize knowledge of individualized fall prevention strategies by 08/10/25. Risk for Falls No Manage Nutrition/Hydration Description: Patient/caregiver will verbalize/demonstrate knowledge of prescribed diet and/or healthy nutrition by 08/10/25. Nutrition/Hydration No Demonstrate understanding of education Description: Patient and/or caregiver will verbalize understanding of educational instruction provided by 08/10/25 SN Learning Assessment No Patient/Caregiver will verbalize understanding and demonstrate improved management of genitourinary disease/condition. Description: Patient/Caregiver will state understanding of genitourinary disease/condition and be able to teach back management strategies by 08/10/25 SN Genitourinary disease process No Improved management of GI disease/condition Description: Patient/Caregiver will demonstrate understanding of GI education as evidenced by improved management of gastrointestinal disease/condition by 08/10/25 SN Gastrointestinal No Interventions Intervention Associated Problem/Goal Status Variance Visit Notes Medication Education Description: Evaluate/instruct patient/caregiver on obtaining, storing, identifying and administering ordered medications as well as keeping accurate medication list in the home and adhereing to medication schedule Problem:Medication Education Goal:Patient/caregiver will demonstrate ability to obtain, store, identify and administer ordered medications, keep accurate medication list in home, and adhere to medication schedule Performed Patient and Caregiver instructed on adhering to medication schedule. Risk of Sepsis Description: Patient is at risk for sepsis. Monitor closely for s/s of sepsis. Problem:Sepsis Goal:Patient/caregiver will be able to identify and report symptoms of sepsis Performed Instruct on the risks and measures to be taken to prevent skin breakdown Description: Patient's Chapo Score is: 18. A Chapo score <= to 18 indicates risk for skin breakdown. Problem:Risk for skin breakdown Goal:Manage risk for skin breakdown Performed patient instructed on maintaining skin integrity including: The need for every 1-2 hour turns, position changes, and maintaining activity as tolerated SPO2 Description: Notify Clifford Estes MD and stop activity if pulse ox is <92% at rest. Problem:Physician Specific Parameters Goal:Patient to maintain parameters within physician-specified ranges throughout certification period Performed Instruct on individual fall risk factors and strategies to prevent falls and injuries caused by falls. Problem:Risk for Falls Goal:Manage Risk for falls Performed SN: Patient and Caregiver instructed on Managing Impaired Functional Mobility: Caregiver to provide assist with: Ambulation and ADL/IADLs Define patient s appetite/hydration status and implement strategies to improve compliance with prescribed diet and/or healthy nutrition. Problem:Nutrition/Hydr ation Goal:Manage Nutrition/Hydration Performed reinforced patient and caregiver on implementing strategies to comply with healthy nutrition and adequate hydration Instruct and educate on knowledge deficits Problem:SN Learning Assessment Goal:Demonstrate understanding of education Performed patient and caregiver verbalize and/or demonstrate understanding of nursing education completed today. Education methods include: verbal cues, visual cues and teach back. Further education required to improve knowledge and compliance with fall preven tion/home safety strategies, gastrointestinal care management, genitourinary care management, medication management and nutrition. Catheter- Instruct Patient/Caregiver on use and management of a urinary catheter Description: Urinary catheter is a hannon catheter. Problem:SN Genitourinary disease process Goal:Patient/Caregiver will verbalize understanding and demonstrate improved management of genitourinary disease/condition. Performed patient and caregiver instructed on catheter management including: cleansing around catheter insertion site and potential complications and actions to take. UTI- Instruct Patient/Caregiver on signs and symptoms of urinary tract infection, treatment measures, measures to prevent reoccurence, and when to notify physician of symptoms Problem:SN Genitourinary disease process Goal:Patient/Caregiver will verbalize understanding and demonstrate improved management of genitourinary disease/condition. Performed patient instructed on signs and symptoms of UTI and when to notify physician and preventative measures including: drink plenty of liquids, especially water and clean genitalia daily and keep area dry to prevent bacteria and yeast growth. Constipation: Instruct Patient/Caregiver on measures to manage constipation Problem:SN Gastrointestinal Goal:Improved management of GI disease/condition Performed patient instructed on the following measures to relieve constipation: increase fluids and increase activity as tolerated. Instructed on use of stool softener, laxative, enema and suppositories. documented in this encounter [facility] home Plan of care note* Visit Details Visit Type -SN ROUTINE Discipline -Long-Term Problems Problem Description Start Date Status Goals Interve ntions Medication Education Disciplines: Skilled Services 06/17/2024 Active 1 goal linked to scheduled/documen benjy intervention 1 goal intervention scheduled/document ed in this visit Sepsis Disciplines: Skilled Services 06/17/2024 Active 1 goal linked to scheduled/documen benjy intervention 1 goal intervention scheduled/document ed in this visit Risk for skin breakdown Disciplines: Skilled Services 06/17/2024 Active 1 goal linked to scheduled/documen benjy intervention 1 goal intervention scheduled/document ed in this visit Risk for Falls Disciplines: Skilled Services 06/17/2024 Active 1 goal linked to scheduled/documen benjy intervention 1 goal intervention scheduled/document ed in this visit Nutrition/Hydration Disciplines: Skilled Services 06/17/2024 Active 1 goal linked to scheduled/documen benjy intervention 1 goal intervention scheduled/document ed in this visit SN Learning Assessment Disciplines: 06/17/2024 Active 1 goal linked to scheduled/documen benjy intervention 1 goal intervention scheduled/document ed in this visit SN Genitourinary disease process Disciplines: 06/17/2024 Active 1 goal linked to scheduled/documen benjy intervention 2 goal interventions scheduled/document ed in this visit SN Gastrointestinal Disciplines: 06/17/2024 Active 1 goal linked to scheduled/documen benjy intervention 1 goal intervention scheduled/document ed in this visit Goals Goal Associated Problem Outcome Goal Met? Visit Notes Patient/caregiver will demonstrate ability to obtain, store, identify and administer ordered medications, keep accurate medication list in home, and adhere to medication schedule Description: Patient/caregiver will demonstrate ability to obtain, store, identify and administer ordered medications, keep accurate medication list in home, and adhere to medication schedule by 08/10/25. Medication Education No Patient/caregiver will be able to identify and report symptoms of sepsis Description: Patient/caregiver will be able to identify signs/symptoms of sepsis infection and will verbalize actions to take if suspected by 08/10/25. Sepsis No Manage risk for skin breakdown Description: Patient/caregiver will verbalize and demonstrate understanding of the risks and measures to be taken to monitor and prevent skin breakdown by 08/10/25. Risk for skin breakdown No Manage Risk for falls Description: Patient/caregiver will verbalize knowledge of individualized fall prevention strategies by 08/10/25. Risk for Falls No Manage Nutrition/Hydration Description: Patient/caregiver will verbalize/demonstrate knowledge of prescribed diet and/or healthy nutrition by 08/10/25. Nutrition/Hydration No Demonstrate understanding of education Description: Patient and/or caregiver will verbalize understanding of educational instruction provided by 08/10/25 SN Learning Assessment No Patient/Caregiver will verbalize understanding and demonstrate improved management of genitourinary disease/condition. Description: Patient/Caregiver will state understanding of genitourinary disease/condition and be able to teach back management strategies by 08/10/25 SN Genitourinary disease process No Improved management of GI disease/condition Description: Patient/Caregiver will demonstrate understanding of GI education as evidenced by improved management of gastrointestinal disease/condition by 08/10/25 SN Gastrointestinal No Interventions Intervention Associated Problem/Goal Status Variance Visit Notes Medication Education Description: Evaluate/instruct patient/caregiver on obtaining, storing, identifying and administering ordered medications as well as keeping accurate medication list in the home and adhereing to medication schedule Problem:Medication Education Goal:Patient/caregiver will demonstrate ability to obtain, store, identify and administer ordered medications, keep accurate medication list in home, and adhere to medication schedule Performed Patient instructed on adhering to medication schedule. Risk of Sepsis Description: Patient is at risk for sepsis. Monitor closely for s/s of sepsis. Problem:Sepsis Goal:Patient/caregiver will be able to identify and report symptoms of sepsis Performed Instruct on the risks and measures to be taken to prevent skin breakdown Description: Patient's Chapo Score is: 18. A Chapo score <= to 18 indicates risk for skin breakdown. Problem:Risk for skin breakdown Goal:Manage risk for skin breakdown Performed patient instructed on maintaining skin integrity including: Routine skin care Instruct on individual fall risk factors and strategies to prevent falls and injuries caused by falls. Problem:Risk for Falls Goal:Manage Risk for falls Performed SN: Patient instructed on Managing Impaired Functional Mobility: Caregiver to provide assist with: ADL/IADLs Define patient s appetite/hydration status and implement strategies to improve compliance with prescribed diet and/or healthy nutrition. Problem:Nutrition/Hydra tion Goal:Manage Nutrition/Hydration Performed reinforced patient on implementing strategies to comply with healthy nutrition and adequate hydration Instruct and educate on knowledge deficits Problem:SN Learning Assessment Goal:Demonstrate understanding of education Performed patient verbalize and/or demonstrate understanding of nursing education completed today. Education methods include: verbal cues. Further education required to improve knowledge and compliance with fall prevention/home safety strategies, gastrointesti nal care management, genitourinary care management and medication management. Catheter- Instruct Patient/Caregiver on use and management of a urinary catheter Description: Urinary catheter is a hannon catheter. Problem:SN Genitourinary disease process Goal:Patient/Caregiver will verbalize understanding and demonstrate improved management of genitourinary disease/condition. Performed patient and caregiver instructed on catheter management including: potential complications and actions to take and daily irrigations. UTI- Instruct Patient/Caregiver on signs and symptoms of urinary tract infection, treatment measures, measures to prevent reoccurence, and when to notify physician of symptoms Problem:SN Genitourinary disease process Goal:Patient/Caregiver will verbalize understanding and demonstrate improved management of genitourinary disease/condition. Performed patient instructed on preventative measures including: drink plenty of liquids, especially water and clean genitalia daily and keep area dry to prevent bacteria and yeast growth. Constipation: Instruct Patient/Caregiver on measures to manage constipation Problem:SN Gastrointestinal Goal:Improved management of GI disease/condition Performed patient instructed on the following measures to relieve constipation: increase fluids as tolerated. Instructed on use of stool softener, laxative, enema and suppositories. [facility] Diagnostic Procedure Only (Routine) - Authorized Specialty Diagnoses / Procedures Referred By Contac t Referred To Contact XR IMAGING Diagnoses Diverticulum of bladder Bladder stones Procedures XR SOFT SHOE DANCER SHUNT SERIES 5V SKULL/NECK/CHEST/ABD/CTL ABD RADIOLOGIC EXAMINATION SKULL 4< VIEWS RADIOLOGIC EXAMINATION NECK SOFT TISSUE RADIOLOGIC EXAM CHEST SINGLE VIEW RADIOLOGIC EXAM ABDOMEN 1 VIEW Brea Florentino MD [address] [place] [address] [place] [address] Referral ID Status Reason Start Date Expiration Date Visits Requested Visits Authorized [id number] Authorized Auto-Generat ed Referral 03/06/2024 04/05/2025 1 1 * Consult, Test, Treat (Routine) - Authorized Specialty Diagnoses / Procedures Referred By Rose Marie neri Referred To Contact Diagnoses Diverticulum of bladder Bladder stones Procedures REFER TO PACC - PRE ANESTHESIA CONSULTATION CLINIC OFFICE/OUTPATIENT [facility] 60 MINUTES Brea Florentino MD [address] [place] [address] Referral ID Status Reason Start Date Expiration Date Visits Requested Visits Authorized [id number] Authorized PCP Requested Referral 03/06/2024 03/06/2025 1 1 [facility] for referral (narrative)* Diagnostic Procedure Only (Routine) - Closed Specialty Diagnoses / Procedures Referred By Rose Marie neri Referred To Contact XR IMAGING Diagnoses Diverticulum of bladder Bladder stones Procedures XR SOFT SHOE DANCER SHUNT SERIES 5V SKULL/NECK/CHEST/ABD/CTL ABD RADIOLOGIC EXAMINATION SKULL 4< VIEWS RADIOLOGIC EXAMINATION NECK SOFT TISSUE RADIOLOGIC EXAM CHEST SINGLE VIEW RADIOLOGIC EXAM ABDOMEN 1 VIEW Brea Florentino MD [address] [place] [address] Xr Imaging [place] [address] Referral ID Status Reason Start Date Expiration Date V isits Requested Visits Authorized [id number] Closed Auto-Generate d Referral 03/06/2024 04/05/2025 1 1 [facility] for referral (narrative)* Outpatient Procedure (Routine) - Closed Specialty Diagnoses / Procedures Referred By Rose Marie neri Referred To [facility] Diagnoses Pre-op evaluation Procedures ECG COMPLETE ECG ROUTINE ECG W/LEAST 12 LDS W/I&R Anna Ayoub PA-C [address] [address] [facility] [place] [address] [facility] [place] [address] Referral ID Status Reason Start Date Expiration Date V isits Requested Visits Authorized [id number] Closed Auto-Generate d Referral 04/05/2024 04/05/2025 1 1 [facility] for referral (narrative)* Diagnostic Procedure Only (Routine) - Pending Review Specialty Diagnoses / Procedures Referred By Contac t Referred To Contact US IMAGING Diagnoses Neurogenic bladder Procedures US KIDNEY/BLADDER US RETROPERITONEAL REAL TIME W/IMAGE COMPLETE Brea Florentino MD [address] [place] [address] Us [facility] [place] [address] Referral ID Status Reason Start Date Expiration Date Visits Requested Visits Authorized [id number] Pending Review Auto-Generat ed Referral 05/08/2025 06/07/2025 1 1 [facility] for visit Narrative* Auth/Cert (Routine) Specialty Diagnoses / Procedures Referred By Contac t Referred [facility] [address] [place] [id number] Phone: tel: Referral ID Status Reason Start Date Expiration Date Visits Re quested Visits Authorized [id number] 1 1 [facility] Reason for Referral Specialty Diagnoses / Procedures Referred By Contac t Referred To Contact CT IMAGING Diagnoses Small bowel obstruction (HCC) Procedures CT ABD/PEL WO IVCON CT ABD & PEL[place] [address] [place] [id number] Imaging Referral ID Status Reason Start Date Expiration Date Visits Requested Visits Authorized [id number] Authorized Auto-Generat ed Referral 03/05/2022 03/04/2023 1 1 Specialty Diagnoses / Procedures Referred By Contac t Referred To Contact CT IMAGING Diagnoses Calculus of urinary bladder Procedures CT FLANK WO IVCON CT ABD & PELVIS W/O CONTRAST Brice Henriquez MD [address] [place] [address] Ct Imaging Referral ID Status Reason Start Date Expiration Date Visits Requested Visits Authorized [id number] Pending Review Auto-Generat ed Referral 02/26/2022 03/19/2023 1 1 Referral ID Status Reason Start Date Expiration Date V isits Requested Visits Authorized [id number] Closed Auto-Generate d Referral 03/05/2022 03/04/2023 1 1 Specialty Diagnoses / Procedures Referred By Contac t Referred To Contact [facility] Diagnoses Spina bifida with hydrocephalus, unspecified spinal region (HCC) Procedures CONSULT TO PHYSICAL MEDICINE AND REHABILITATION OFFICE/OUTPATIENT [facility] 60-74 MINUTES Julita Sofia DO [address] [place] [address] [facility] [place] [address] [place] [id number] Referral ID Status Reason Start Date Expiration Date Visits Requested Visits Authorized [id number] Pending Review PCP Requested Referral Auto-Generate d Referral 07/16/2022 07/16/2023 1 1 Specialty Diagnoses / Procedures Referred By Contac t Referred To Contact Neurology Diagnoses Spina bifida with hydrocephalus, unspecified spinal region (HCC) Congenital hydrocephalus (HCC) Hydrocephalus, unspecified type (HCC) Neurogenic bladder Procedures CONSULT TO NEUROLOGY OFFICE/OUTPATIENT [facility] 60-74 MINUTES Clifford Estes MD [address] [place] [id number] Referral ID Status Reason Start Date Expiration Date Visits Requested Visits Authorized [id number] Pending Review PCP Requested Referral 08/03/2023 08/02/2024 1 1 Specialty Diagnoses / Procedures Referred By Contac t Referred To Contact [facility] Diagnoses Chronic cough Procedures LUNG DIFFUSION CAPACITY (DLCO) DIFFUSING CAPACITY Clifford Estes MD [address] [place] [id number] [facility] [place] [address] [place] [phone] Referral ID Status Reason Start Date Expiration Date Visits Requested Visits Authorized [id number] Pending Review Auto-Generat ed Referral 08/03/2023 09/01/2024 1 1 Specialty Diagnoses / Procedures Referred By Contac t Referred To Contact [facility] Diagnoses Chronic cough Procedures SPIROMETRY WITH DILATOR IF OBSTRUCTED BRNCDILAT RSPSE SPMTRY PRE&POST-BRNCDILAT ADMN Clifford Estes MD [address] [place] [address] [facility] [place] [address] [place] [address] Referral ID Status Reason Start Date Expiration Date Visits Requested Visits Authorized [id number] Pending Review Auto-Generat ed Referral 08/03/2023 09/01/2024 1 1 Specialty Diagnoses / Procedures Referred By Contac t Referred To Contact Neurosurgery Diagnoses 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) Procedures CT BRAIN WO IVCON CT HEAD/BRAIN W/O CONTRAST MATERIAL Daphney Castellon, ZOE [address] [place] [address] Ct Imaging [id number] Referral ID Status Reason Start Date Expiration Date Visits Requested Visits Authorized [id number] Pending Review Auto-Generat ed Referral 04/03/2024 05/03/2025 1 1 Specialty Diagnoses / Procedures Referred By Contac t Referred To Contact Diagnoses Urinary retention Neurogenic bladder Spina bifida with hydrocephalus, unspecified spinal region (HCC) Procedures CONSULT TO [facility] Clifford Estes MD [address] [place] [address] [address] [place] [address] Referral ID Status Reason Start Date Expiration Date V isits Requested Visits Authorized [id number] Closed PCP Requested Referral 06/13/2024 09/11/2024 1 1 Advance Directives No Advanced Directives Records FoundDocuments on File Type Date Recorded Patient Knit Tubing Dyer Expl anation Advance Directive(s) 03/27/2021 1:27 PM Advance Directive(s) 02/18/2021 9:25 AM Documents on File Type Date Recorded Patient Knit Tubing Dyer Expl anation Advance Directive(s) 03/27/2021 1:27 PM Advance Directive(s) 02/18/2021 9:25 AM Advance Directive Response Recorded Date/ Time Advance Directives No July 09, 2016 10:18am Living Will No March 07, 2022 9:24pm Power of Semiconductor Engineer No March 07 9:24pm Advance Directive Response Recorded Date/ Time Advance Directives No July 09, 2016 10:18am Living Will No March 27, 2022 1 2:53am Power of Semiconductor Engineer No March 27, 2022 12:53am Advance Directive Response Recorded Date/ Time Advance Directives No July 09, 2016 10:18am Living Will No April 13, 2022 8 :52pm Power of Semiconductor Engineer No April 13, 2022 8:52pm Documents on File Type Date Recorded Patient Knit Tubing Dyer Expl anation Advance Directive(s) 04/14/2022 6:51 PM Advance Directive(s) 03/27/2021 1:27 PM Advance Directive(s) 02/18/2021 9:25 AM Advance Directive Response Recorded Date/ Time Advance Directives No July 09, 2016 10:18am Living Will No July 05 12:52pm Power of Semiconductor Engineer No July 05 12:52pm Advance Directive Response Recorded Date/ Time Advance Directives No July 09, 2016 10:18am Living Will No July 21 5:16am Power of Semiconductor Engineer No July 21, 2022 5:16am Advance Directive Response Recorded Date/ Time Advance Directives No July 09, 2016 10:18am Living Will No July 21 9:57am Power of Semiconductor Engineer No July 21, 2022 9:57am Advance Directive Response Recorded Date/ Time Advance Directives No July 09, 2016 10:18am Living Will No August 11, 2022 12:09am Power of Semiconductor Engineer No July 12:09am Advance Directive Response Recorded Date/ Time Advance Directives No July 09, 2016 10:18am Living Will No September 09 9:32pm Power of Semiconductor Engineer No September 09, 2022 9:32pm Advance Directive Response Recorded Date/ Time Advance Directives No July 09, 2016 9:18am Living Will No September 19 7:56pm Power of Semiconductor Engineer No September 19, 2022 7:56pm Advance Directive Response Recorded Date/ Time Advance Directives No July 09, 2016 9:18am Living Will No September 20 4:32am Power of Semiconductor Engineer No September 20, 2022 4:32am Advance Directive Response Recorded Date/ Time Advance Directives No July 09, 2016 9:18am Living Will No October 29, 022 4:32pm Power of Semiconductor Engineer No October 29, 2022 4:32pm Advance Directive Response Recorded Date/ Time Advance Directives No July 09, 2016 9:18am Living Will No December 10 11:12pm Power of Semiconductor Engineer No December 10, 2022 11:12pm Advance Directive Response Recorded Date/ Time Advance Directives No July 09, 2016 10:18am Living Will No February 15, 2023 5:22am Power of Semiconductor Engineer No February 15 5:22am Advance Directive Response Recorded Date/ Time Advance Directives No July 09, 2016 10:18am Living Will No February 20, 2023 3:24pm Power of Semiconductor Engineer No February 20 3:24pm Advance Directive Response Recorded Date/ Time Advance Directives No July 09, 2016 10:18am Living Will No February 20, 2023 8:38pm Power of Semiconductor Engineer No February 20 8:38pm Documents on File Type Date Recorded Patient Knit Tubing Dyer Expl anation Advance Directive(s) 04/04/2023 7:49 PM Advance Directive Response Recorded Date/ Time Name of Medical Power of Semiconductor Engineer GIANCARLO BRUNO May 09, 2023 10:01am Advance Directives No July 09, 2016 10:18am Living Will Yes May 09, 2023 10:01am Power of Semiconductor Engineer Yes May 09 10:01am Documents on File Type Date Recorded Patient Knit Tubing Dyer Expl anation Advance Directive(s) 04/04/2023 7:49 PM Advance Directive Response Recorded Date/ Time Name of Medical Power of Semiconductor Engineer DARRION BANSAL SI STER May 09, 2023 10:01am Advance Directives No July 09, 2016 10:18am Living Will No August 09, 2023 12:22am Power of Semiconductor Engineer No July 12:22am Advance Directive Response Recorded Date/ Time Name of Medical Power of Semiconductor Engineer DARRION BANSAL SI STER May 09, 2023 10:01am Advance Directives No July 09, 2016 10:18am Living Will No August 09, 2023 3:49pm Power of Semiconductor Engineer No July 3:49pm Advance Directive Response Recorded Date/ Time Name of Medical Power of Semiconductor Engineer September 20, 2023 7:31pm Advance Directives No July 09, 2016 9:18am Living Will Yes September 20 7:31pm Power of Semiconductor Engineer Yes September 20, 2023 7:31pm Advance Directive Response Recorded Date/ Time Name of Medical Power of Semiconductor Engineer Lesli Rosita er September 20, 2023 11:15pm Advance Directives No July 09, 2016 9:18am Living Will No September 20 11:15pm Power of Semiconductor Engineer Yes September 20, 2023 11:15pm Advance Directive Response Recorded Date/ Time Name of Medical Power of Semiconductor Engineer family November 01, 2023 7:21pm Advance Directives No July 09, 2016 9:18am Living Will No November 01, 023 7:21pm Power of Semiconductor Engineer Yes November 01, 2023 7:21pm Name of Medical Power of Semiconductor Engineer Lesli Rosita er September 20, 2023 11:15pm Advance Directive Response Recorded Date/ Time Name of Medical Power of Semiconductor Engineer family November 01, 2023 8:21pm Name of Medical Power of Semiconductor Engineer sister Shelley GOLDBERG November 28, 2023 5:26pm Advance Directives No July 09, 2016 10:18am Living Will No November 28 5:26pm Power of Semiconductor Engineer Yes November 28, 2023 5:26pm Advance Directive Response Recorded Date/ Time Name of Medical Power of Semiconductor Engineer family November 01, 2023 7:21pm Name of Medical Power of Semiconductor Engineer sister Shelley GOLDBERG November 28, 2023 4:26pm Advance Directives No July 09, 2016 9:18am Living Will No November 28 4:26pm Power of Semiconductor Engineer Yes November 28, 2023 4:26pm Name of Medical Power of Semiconductor Engineer Lesli king September 20, 2023 11:15pm Documents on File Type Date Recorded Patient Knit Tubing Dyer Expl anation Advance Directive(s) 06/11/2024 1:30 PM Advance Directive(s) 04/04/2023 7:49 PM Date Activated Date Inactivated Comments 06/11/2024 12:42 PM Question Answer Comments DNR Order Discussed With: State-Approved DNR Angela ntification Date Activated Date Inactivated Comments 06/11/2024 12:42 PM 06/12/2024 5:29 PM Documents on File Type Date Recorded Patient Knit Tubing Dyer Expl anation Advance Directive(s) 06/11/2024 1:30 PM Advance Directive(s) 04/04/2023 7:49 PM Date Activated Date Inactivated Comments 06/11/2024 12:42 PM 06/12/2024 5:29 PM Question Answer Comments DNR Order Discussed With: State-Approved DNR Angela ntification Date Activated Date Inactivated Comments 06/17/2024 1:13 PM Date Activated Date Inactivated Comments 06/11/2024 12:42 PM 06/12/2024 5:29 PM Question Answer Comments DNR Order Discussed With: State-Approved DNR Angela ntification Date Activated Date Inactivated Comments 06/17/2024 1:13 PM Date Activated Date Inactivated Comments 06/11/2024 12:42 PM 06/12/2024 5:29 PM Question Answer Comments DNR Order Discussed With: State-Approved DNR Angela ntification Chief Complaint and Reason for Visit Chief Complaint hannon catheter SMALL BOWEL OBSTRUCTION SMALL BOWEL OBSTRUCTION SMALL BOWEL OBSTRUCTION SMALL BOWEL OBSTRUCTION SMALL BOWEL OBSTRUCTION SMALL BOWEL OBSTRUCTION SMALL BOWEL OBSTRUCTION SMALL BOWEL OBSTRUCTION HANNON FALLING OUT Reason for Visit Hypokalemia Hyponatremia Small bowel obstruction Chief Complaint hannon catheter SMALL BOWEL OBSTRUCTION SMALL BOWEL OBSTRUCTION SMALL BOWEL OBSTRUCTION SMALL BOWEL OBSTRUCTION SMALL BOWEL OBSTRUCTION SMALL BOWEL OBSTRUCTION SMALL BOWEL OBSTRUCTION SMALL BOWEL OBSTRUCTION HANNON FALLING OUT catheter problem Reason for Visit Hypokalemia Hyponatremia Small bowel obstruction Chief Complaint hannon catheter SMALL BOWEL OBSTRUCTION SMALL BOWEL OBSTRUCTION SMALL BOWEL OBSTRUCTION SMALL BOWEL OBSTRUCTION SMALL BOWEL OBSTRUCTION SMALL BOWEL OBSTRUCTION SMALL BOWEL OBSTRUCTION SMALL BOWEL OBSTRUCTION HANNON FALLING OUT catheter problem ABD PAIN Reason for Visit Hypokalemia Hyponatremia Small bowel obstruction Chief Complaint HANNON FALLING OUT catheter problem ABD PAIN hannon Chief Complaint catheter problem ABD PAIN hannon ILEUS Reason for Visit Acute hyponatremia Gastroparesis History of urinary retention Ileus due to infection Urinary tract infection Chief Complaint catheter problem ABD PAIN hannon ILEUS ILEUS ILEUS ILEUS ILEUS ILEUS ILEUS ILEUS ILEUS ILEUS ILEUS Reason for Visit Acute hyponatremia Gastroparesis History of urinary retention Ileus due to infection Urinary tract infection Chief Complaint ABD PAIN hannon ILEUS ILEUS ILEUS ILEUS ILEUS ILEUS ILEUS ILEUS ILEUS ILEUS ILEUS UTI, HYPONATREMIA UTI, HYPONATREMIA Reason for Visit Gastroparesis Acute hyponatremia Ileus due to infection Urinary tract infection Fever Hyponatremia UTI (urinary tract infection) Chief Complaint hannon ILEUS ILEUS ILEUS ILEUS ILEUS ILEUS ILEUS ILEUS ILEUS ILEUS ILEUS UTI, HYPONATREMIA UTI, HYPONATREMIA UTI, HYPONATREMIA UTI, HYPONATREMIA Reason for Visit Gastroparesis Acute hyponatremia Ileus due to infection Urinary tract infection Fever Hyponatremia UTI (urinary tract infection) Chief Complaint hannon ILEUS ILEUS ILEUS ILEUS ILEUS ILEUS ILEUS ILEUS ILEUS ILEUS ILEUS UTI, HYPONATREMIA UTI, HYPONATREMIA UTI, HYPONATREMIA UTI, HYPONATREMIA UTI, HYPONATREMIA UTI, HYPONATREMIA VOMITTING, UTI Reason for Visit Gastroparesis Acute hyponatremia Ileus due to infection Urinary tract infection UTI (urinary tract infection) Abdominal pain Bladder diverticulum Catheter-associated urinary tract infection Ileus Inguinal hernia Nausea and vomiting Chief Complaint hannon ILEUS ILEUS ILEUS ILEUS ILEUS ILEUS ILEUS ILEUS ILEUS ILEUS ILEUS UTI, HYPONATREMIA UTI, HYPONATREMIA UTI, HYPONATREMIA UTI, HYPONATREMIA UTI, HYPONATREMIA UTI, HYPONATREMIA VOMITTING, UTI VOMITTING, UTI VOMITTING, UTI VOMITTING, UTI VOMITTING, UTI VOMITTING, UTI VOMITING SMALL BOWEL OBSTRUCTION Reason for Visit Gastroparesis Acute hyponatremia Ileus due to infection Urinary tract infection UTI (urinary tract infection) Abdominal pain Ileus Nausea and vomiting Abdominal pain, acute, generalized Bladder diverticulum Bladder stones Gastric paresis Nausea and vomiting in adult patient Sinus tachycardia Small bowel obstruction Chief Complaint hannon ILEUS ILEUS ILEUS ILEUS ILEUS ILEUS ILEUS ILEUS ILEUS ILEUS ILEUS UTI, HYPONATREMIA UTI, HYPONATREMIA UTI, HYPONATREMIA UTI, HYPONATREMIA UTI, HYPONATREMIA UTI, HYPONATREMIA VOMITTING, UTI VOMITTING, UTI VOMITTING, UTI VOMITTING, UTI VOMITTING, UTI VOMITTING, UTI SMALL BOWEL OBSTRUCTION VOMITING SMALL BOWEL OBSTRUCTION SMALL BOWEL OBSTRUCTION SMALL BOWEL OBSTRUCTION Reason for Visit Gastroparesis Acute hyponatremia Ileus due to infection Urinary tract infection UTI (urinary tract infection) Abdominal pain Ileus Nausea and vomiting Abdominal pain, acute, generalized Bladder diverticulum Bladder stones Gastric paresis Nausea and vomiting in adult patient Sinus tachycardia Small bowel obstruction Chief Complaint hannon ILEUS ILEUS ILEUS ILEUS ILEUS ILEUS ILEUS ILEUS ILEUS ILEUS ILEUS UTI, HYPONATREMIA UTI, HYPONATREMIA UTI, HYPONATREMIA UTI, HYPONATREMIA UTI, HYPONATREMIA UTI, HYPONATREMIA VOMITTING, UTI VOMITTING, UTI VOMITTING, UTI VOMITTING, UTI VOMITTING, UTI VOMITTING, UTI SMALL BOWEL OBSTRUCTION VOMITING SMALL BOWEL OBSTRUCTION SMALL BOWEL OBSTRUCTION SMALL BOWEL OBSTRUCTION urinary complaint Reason for Visit Gastroparesis Acute hyponatremia Ileus due to infection Urinary tract infection UTI (urinary tract infection) Abdominal pain Ileus Nausea and vomiting Nausea and vomiting in adult patient Sinus tachycardia Small bowel obstruction Chief Complaint UTI, HYPONATREMIA UTI, HYPONATREMIA UTI, HYPONATREMIA VOMITTING, UTI VOMITTING, UTI VOMITTING, UTI VOMITTING, UTI VOMITTING, UTI VOMITTING, UTI SMALL BOWEL OBSTRUCTION VOMITING SMALL BOWEL OBSTRUCTION SMALL BOWEL OBSTRUCTION SMALL BOWEL OBSTRUCTION urinary complaint NAUSEA Reason for Visit UTI (urinary tract i nfection) Abdominal pain Ileus Nausea and vomiting Nausea and vomiting in adult patient Sinus tachycardia Small bowel obstruction Chief Complaint urinary complaint NAUSEA HANNON Chief Complaint urinary complaint NAUSEA HANNON ILEUS, HYPONATREMIA Reason for Visit Abdominal distension Hyponatremia Ileus Kidney stone on right side Normal pressure hydrocephalus UTI (urinary tract infection) SOFT SHOE DANCER (ventriculoperitoneal) shunt status Chronic indwelling Hannon catheter Chief Complaint urinary complaint NAUSEA HANNON ILEUS, HYPONATREMIA ILEUS, HYPONATREMIA ILEUS, HYPONATREMIA ILEUS, HYPONATREMIA Reason for Visit Abdominal distension Bladder stones Hyponatremia Ileus Kidney stone on right side Normal pressure hydrocephalus UTI (urinary tract infection) SOFT SHOE DANCER (ventriculoperitoneal) shunt status Chronic indwelling Hannon catheter Chief Complaint HANNON ILEUS, HYPONATREMIA ILEUS, HYPONATREMIA ILEUS, HYPONATREMIA ILEUS, HYPONATREMIA ILEUS, HYPONATREMIA UTI n/v SBO, UTI SBO, UTI SBO, UTI SBO VOMITING BLOOD SBO SBO SBO SBO SBO SBO SBO SBO Reason for Visit Bladder stones Kidney stone on right side Chronic indwelling Hannon catheter Abdominal distension Hyponatremia Ileus UTI (urinary tract infection) TRESA (acute kidney injury) Leukocytosis SBO (small bowel obstruction) Urinary tract infection BPH (benign prostatic hyperplasia) 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 SBO (small bowel obstruction) Urinary tract infection Chronic hyponatremia Hypokalemia Chief Complaint SBO VOMITING BLOOD SBO SBO SBO SBO SBO SBO SBO SBO SMALL BOWL OBSTRUCTION SMALL BOWL OBSTRUCTION Reason for Visit Hypokalemia Recurrent urinary tract infection SBO (small bowel obstruction) Urinary tract infection Hydrocephalus Hyponatremia Leukocytosis Small bowel obstruction Chronic indwelling Hannon catheter Chief Complaint SBO VOMITING BLOOD SBO SBO SBO SBO SBO SBO SBO SBO SMALL BOWL OBSTRUCTION SMALL BOWL OBSTRUCTION SMALL BOWL OBSTRUCTION SMALL BOWL OBSTRUCTION SMALL BOWL OBSTRUCTION SMALL BOWL OBSTRUCTION SMALL BOWL OBSTRUCTION SMALL BOWL OBSTRUCTION Reason for Visit Hypokalemia Recurrent urinary tract infection SBO (small bowel obstruction) Urinary tract infection Hydrocephalus Hyponatremia Leukocytosis Small bowel obstruction Chronic indwelling Hannon catheter Hypokalemia Chief Complaint SMALL BOWL OBSTRUCTI ON SMALL BOWL OBSTRUCTION SMALL BOWL OBSTRUCTION SMALL BOWL OBSTRUCTION SMALL BOWL OBSTRUCTION SMALL BOWL OBSTRUCTION SMALL BOWL OBSTRUCTION SMALL BOWL OBSTRUCTION UTI, SUBACUTE COVID-19 AND HYPONATREMIA OF 124 POA Reason for Visit Hypokalemia Leukocytosis Small bowel obstruction Acute hyponatremia Complicated UTI (urinary tract infection) COVID-19 Leukocytosis Chief Complaint SMALL BOWL OBSTRUCTI ON SMALL BOWL OBSTRUCTION SMALL BOWL OBSTRUCTION SMALL BOWL OBSTRUCTION SMALL BOWL OBSTRUCTION SMALL BOWL OBSTRUCTION SMALL BOWL OBSTRUCTION SMALL BOWL OBSTRUCTION UTI, SUBACUTE COVID-19 AND HYPONATREMIA OF 124 POA UTI, SUBACUTE COVID-19 AND HYPONATREMIA OF 124 POA UTI, SUBACUTE COVID-19 AND HYPONATREMIA OF 124 POA Reason for Visit Hypokalemia Leukocytosis Small bowel obstruction Acute hyponatremia Complicated UTI (urinary tract infection) COVID-19 Leukocytosis Chronic indwelling Hannon catheter Chief Complaint SMALL BOWL OBSTRUCTI ON SMALL BOWL OBSTRUCTION SMALL BOWL OBSTRUCTION SMALL BOWL OBSTRUCTION SMALL BOWL OBSTRUCTION SMALL BOWL OBSTRUCTION SMALL BOWL OBSTRUCTION SMALL BOWL OBSTRUCTION UTI, SUBACUTE COVID-19 AND HYPONATREMIA OF 124 POA UTI, SUBACUTE COVID-19 AND HYPONATREMIA OF 124 POA UTI, SUBACUTE COVID-19 AND HYPONATREMIA OF 124 POA low urine output Reason for Visit Hypokalemia Leukocytosis Small bowel obstruction Chronic indwelling Hannon catheter Leukocytosis Chief Complaint low urine output abd pain Chief Complaint SMALL BOWL OBSTRUCTI ON SMALL BOWL OBSTRUCTION SMALL BOWL OBSTRUCTION SMALL BOWL OBSTRUCTION SMALL BOWL OBSTRUCTION SMALL BOWL OBSTRUCTION SMALL BOWL OBSTRUCTION SMALL BOWL OBSTRUCTION UTI, SUBACUTE COVID-19 AND HYPONATREMIA OF 124 POA UTI, SUBACUTE COVID-19 AND HYPONATREMIA OF 124 POA UTI, SUBACUTE COVID-19 AND HYPONATREMIA OF 124 POA low urine output abd pain Reason for Visit Hypokalemia Leukocytosis Small bowel obstruction Chronic indwelling Hannon catheter Leukocytosis Family History No Family History Records Found Relationship Condition Age at Onset Recorded Date/T [place] Not Specified Cardiac disease Unknown Malignant neoplasm Unknown Peptic ulcer Unknown Relationship Condition Age at Onset Recorded Date/T [place] Not Specified Malignant neoplasm Unknown Peptic ulcer Unknown father Cardiac disease Unknown Calculus of kidney Unknown Disorder of prostate Unknown brother Calculus of kidney Unknown Summary Purpose Medications Administered Section Inactive Administered Medications - up to 3 most recent administrations Medication Order MAR Action Action Date Dose Rate Site cosyntropin 0.25 mg injection (CORTROSYN) 0.25 mg, INTRAMUSCULAR, ONCE, 1 dose, On Tue10/25/23 at 0000, Reconstitute 0.25 mg with 1 mL of NS and further dilute in NS to a total volume of 2 to 5 mL. Given 10/25/2023 11:04 AM EST 0.25 mg Deltoid, Left Additional Source Comments Source Comments (unrecognize d section and content) In the event this informatio n is protected by the Federal Confidentiality of Alcohol and Drug Abuse Patient Records regulations: The Federal rules restrict any use of the information to criminally investigate or prosecute any alcohol or drug abuse patient.[facility] the event this information is protected by the Federal Confidentiality of Alcohol and Drug Abuse Patient Records regulations: The Federal rules restrict any use of the information to criminally investigate or prosecute any alcohol or drug abuse patient.[facility] the event this information is protected by the Federal Confidentiality of Alcohol and Drug Abuse Patient Records regulations: The Federal rules restrict any use of the information to criminally investigate or prosecute any alcohol or drug abuse patient.[facility] the event this information is protected by the Federal Confidentiality of Alcohol and Drug Abuse Patient Records regulations: The Federal rules restrict any use of the information to criminally investigate or prosecute any alcohol or drug abuse patient.[facility] the event this information is protected by the Federal Confidentiality of Alcohol and Drug Abuse Patient Records regulations: The Federal rules restrict any use of the information to criminally investigate or prosecute any alcohol or drug abuse patient.[facility]In the event this information is protected by the Federal Confidentiality of Alcohol and Drug Abuse Patient Records regulations: The Federal rules restrict any use of the information to criminally investigate or prosecute any alcohol or drug abuse patient.[facility] the event this information is protected by the Federal Confidentiality of Alcohol and Drug Abuse Patient Records regulations: The Federal rules restrict any use of the information to criminally investigate or prosecute any alcohol or drug abuse patient.[facility]In the event this information is protected by the Federal Confidentiality of Alcohol and Drug Abuse Patient Records regulations: The Federal rules restrict any use of the information to criminally investigate or prosecute any alcohol or drug abuse patient.[facility]In the event this information is protected by the Federal Confidentiality of Alcohol and Drug Abuse Patient Records regulations: The Federal rules restrict any use of the information to criminally investigate or prosecute any alcohol or drug abuse patient.[facility]In the event this information is protected by the Federal Confidentiality of Alcohol and Drug Abuse Patient Records regulations: The Federal rules restrict any use of the information to criminally investigate or prosecute any alcohol or drug abuse patient.[facility]In the event this information is protected by the Federal Confidentiality of Alcohol and Drug Abuse Patient Records regulations: The Federal rules restrict any use of the information to criminally investigate or prosecute any alcohol or drug abuse patient.[facility]In the event this information is protected by the Federal Confidentiality of Alcohol and Drug Abuse Patient Records regulations: The Federal rules restrict any use of the information to criminally investigate or prosecute any alcohol or drug abuse patient.[facility]In the event this information is protected by the Federal Confidentiality of Alcohol and Drug Abuse Patient Records regulations: The Federal rules restrict any use of the information to criminally investigate or prosecute any alcohol or drug abuse patient.[facility]In the event this information is protected by the Federal Confidentiality of Alcohol and Drug Abuse Patient Records regulations: The Federal rules restrict any use of the information to criminally investigate or prosecute any alcohol or drug abuse patient.[facility]In the event this information is protected by the Federal Confidentiality of Alcohol and Drug Abuse Patient Records regulations: The Federal rules restrict any use of the information to criminally investigate or prosecute any alcohol or drug abuse patient.[facility]In the event this information is protected by the Federal Confidentiality of Alcohol and Drug Abuse Patient Records regulations: The Federal rules restrict any use of the information to criminally investigate or prosecute any alcohol or drug abuse patient.[facility]In the event this information is protected by the Federal Confidentiality of Alcohol and Drug Abuse Patient Records regulations: The Federal rules restrict any use of the information to criminally investigate or prosecute any alcohol or drug abuse patient.[facility]In the event this information is protected by the Federal Confidentiality of Alcohol and Drug Abuse Patient Records regulations: The Federal rules restrict any use of the information to criminally investigate or prosecute any alcohol or drug abuse patient.[facility]In the event this information is protected by the Federal Confidentiality of Alcohol and Drug Abuse Patient Records regulations: The Federal rules restrict any use of the information to criminally investigate or prosecute any alcohol or drug abuse patient.[facility]In the event this information is protected by the Federal Confidentiality of Alcohol and Drug Abuse Patient Records regulations: The Federal rules restrict any use of the information to criminally investigate or prosecute any alcohol or drug abuse patient.[facility]In the event this information is protected by the Federal Confidentiality of Alcohol and Drug Abuse Patient Records regulations: The Federal rules restrict any use of the information to criminally investigate or prosecute any alcohol or drug abuse patient.[facility]In the event this information is protected by the Federal Confidentiality of Alcohol and Drug Abuse Patient Records regulations: The Federal rules restrict any use of the information to criminally investigate or prosecute any alcohol or drug abuse patient.[facility]In the event this information is protected by the Federal Confidentiality of Alcohol and Drug Abuse Patient Records regulations: The Federal rules restrict any use of the information to criminally investigate or prosecute any alcohol or drug abuse patient.[facility]In the event this information is protected by the Federal Confidentiality of Alcohol and Drug Abuse Patient Records regulations: The Federal rules restrict any use of the information to criminally investigate or prosecute any alcohol or drug abuse patient.[facility]In the event this information is protected by the Federal Confidentiality of Alcohol and Drug Abuse Patient Records regulations: The Federal rules restrict any use of the information to criminally investigate or prosecute any alcohol or drug abuse patient.[facility]In the event this information is protected by the Federal Confidentiality of Alcohol and Drug Abuse Patient Records regulations: The Federal rules restrict any use of the information to criminally investigate or prosecute any alcohol or drug abuse patient.[facility]In the event this information is protected by the Federal Confidentiality of Alcohol and Drug Abuse Patient Records regulations: The Federal rules restrict any use of the information to criminally investigate or prosecute any alcohol or drug abuse patient.[facility]In the event this information is protected by the Federal Confidentiality of Alcohol and Drug Abuse Patient Records regulations: The Federal rules restrict any use of the information to criminally investigate or prosecute any alcohol or drug abuse patient.[facility]In the event this information is protected by the Federal Confidentiality of Alcohol and Drug Abuse Patient Records regulations: The Federal rules restrict any use of the information to criminally investigate or prosecute any alcohol or drug abuse patient.[facility]In the event this information is protected by the Federal Confidentiality of Alcohol and Drug Abuse Patient Records regulations: The Federal rules restrict any use of the information to criminally investigate or prosecute any alcohol or drug abuse patient.[facility]In the event this information is protected by the Federal Confidentiality of Alcohol and Drug Abuse Patient Records regulations: The Federal rules restrict any use of the information to criminally investigate or prosecute any alcohol or drug abuse patient.[facility]In the event this information is protected by the Federal Confidentiality of Alcohol and Drug Abuse Patient Records regulations: The Federal rules restrict any use of the information to criminally investigate or prosecute any alcohol or drug abuse patient.[facility]In the event this information is protected by the Federal Confidentiality of Alcohol and Drug Abuse Patient Records regulations: The Federal rules restrict any use of the information to criminally investigate or prosecute any alcohol or drug abuse patient.[facility]In the event this information is protected by the Federal Confidentiality of Alcohol and Drug Abuse Patient Records regulations: The Federal rules restrict any use of the information to criminally investigate or prosecute any alcohol or drug abuse patient.[facility]In the event this information is protected by the Federal Confidentiality of Alcohol and Drug Abuse Patient Records regulations: The Federal rules restrict any use of the information to criminally investigate or prosecute any alcohol or drug abuse patient.[facility]In the event this information is protected by the Federal Confidentiality of Alcohol and Drug Abuse Patient Records regulations: The Federal rules restrict any use of the information to criminally investigate or prosecute any alcohol or drug abuse patient.[facility]In the event this information is protected by the Federal Confidentiality of Alcohol and Drug Abuse Patient Records regulations: The Federal rules restrict any use of the information to criminally investigate or prosecute any alcohol or drug abuse patient.[facility]In the event this information is protected by the Federal Confidentiality of Alcohol and Drug Abuse Patient Records regulations: The Federal rules restrict any use of the information to criminally investigate or prosecute any alcohol or drug abuse patient.[facility]In the event this information is protected by the Federal Confidentiality of Alcohol and Drug Abuse Patient Records regulations: The Federal rules restrict any use of the information to criminally investigate or prosecute any alcohol or drug abuse patient.[facility]In the event this information is protected by the Federal Confidentiality of Alcohol and Drug Abuse Patient Records regulations: The Federal rules restrict any use of the information to criminally investigate or prosecute any alcohol or drug abuse patient.[facility]In the event this information is protected by the Federal Confidentiality of Alcohol and Drug Abuse Patient Records regulations: The Federal rules restrict any use of the information to criminally investigate or prosecute any alcohol or drug abuse patient.[facility]In the event this information is protected by the Federal Confidentiality of Alcohol and Drug Abuse Patient Records regulations: The Federal rules restrict any use of the information to criminally investigate or prosecute any alcohol or drug abuse patient.[facility]In the event this information is protected by the Federal Confidentiality of Alcohol and Drug Abuse Patient Records regulations: The Federal rules restrict any use of the information to criminally investigate or prosecute any alcohol or drug abuse patient.[facility]In the event this information is protected by the Federal Confidentiality of Alcohol and Drug Abuse Patient Records regulations: The Federal rules restrict any use of the information to criminally investigate or prosecute any alcohol or drug abuse patient.[facility]In the event this information is protected by the Federal Confidentiality of Alcohol and Drug Abuse Patient Records regulations: The Federal rules restrict any use of the information to criminally investigate or prosecute any alcohol or drug abuse patient.[facility]In the event this information is protected by the Federal Confidentiality of Alcohol and Drug Abuse Patient Records regulations: The Federal rules restrict any use of the information to criminally investigate or prosecute any alcohol or drug abuse patient.[facility]In the event this information is protected by the Federal Confidentiality of Alcohol and Drug Abuse Patient Records regulations: The Federal rules restrict any use of the information to criminally investigate or prosecute any alcohol or drug abuse patient.[facility]In the event this information is protected by the Federal Confidentiality of Alcohol and Drug Abuse Patient Records regulations: The Federal rules restrict any use of the information to criminally investigate or prosecute any alcohol or drug abuse patient.[facility] the event this information is protected by the Federal Confidentiality of Alcohol and Drug Abuse Patient Records regulations: The Federal rules restrict any use of the information to criminally investigate or prosecute any alcohol or drug abuse patient.[facility]In the event this information is protected by the Federal Confidentiality of Alcohol and Drug Abuse Patient Records regulations: The Federal rules restrict any use of the information to criminally investigate or prosecute any alcohol or drug abuse patient.[facility]In the event this information is protected by the Federal Confidentiality of Alcohol and Drug Abuse Patient Records regulations: The Federal rules restrict any use of the information to criminally investigate or prosecute any alcohol or drug abuse patient.[facility]In the event this information is protected by the Federal Confidentiality of Alcohol and Drug Abuse Patient Records regulations: The Federal rules restrict any use of the information to criminally investigate or prosecute any alcohol or drug abuse patient.[facility]In the event this information is protected by the Federal Confidentiality of Alcohol and Drug Abuse Patient Records regulations: The Federal rules restrict any use of the information to criminally investigate or prosecute any alcohol or drug abuse patient.[facility]In the event this information is protected by the Federal Confidentiality of Alcohol and Drug Abuse Patient Records regulations: The Federal rules restrict any use of the information to criminally investigate or prosecute any alcohol or drug abuse patient.[facility] HospitalIn the event this information is protected by the Federal Confidentiality of Alcohol and Drug Abuse Patient Records regulations: The Federal rules restrict any use of the information to criminally investigate or prosecute any alcohol or drug abuse patient.[facility] the event this information is protected by the Federal Confidentiality of Alcohol and Drug Abuse Patient Records regulations: The Federal rules restrict any use of the information to criminally investigate or prosecute any alcohol or drug abuse patient.[facility]In the event this information is protected by the Federal Confidentiality of Alcohol and Drug Abuse Patient Records regulations: The Federal rules restrict any use of the information to criminally investigate or prosecute any alcohol or drug abuse patient.[facility]In the event this information is protected by the Federal Confidentiality of Alcohol and Drug Abuse Patient Records regulations: The Federal rules restrict any use of the information to criminally investigate or prosecute any alcohol or drug abuse patient.[facility]In the event this information is protected by the Federal Confidentiality of Alcohol and Drug Abuse Patient Records regulations: The Federal rules restrict any use of the information to criminally investigate or prosecute any alcohol or drug abuse patient.[facility]In the event this information is protected by the Federal Confidentiality of Alcohol and Drug Abuse Patient Records regulations: The Federal rules restrict any use of the information to criminally investigate or prosecute any alcohol or drug abuse patient.[facility]In the event this information is protected by the Federal Confidentiality of Alcohol and Drug Abuse Patient Records regulations: The Federal rules restrict any use of the information to criminally investigate or prosecute any alcohol or drug abuse patient.[facility]In the event this information is protected by the Federal Confidentiality of Alcohol and Drug Abuse Patient Records regulations: The Federal rules restrict any use of the information to criminally investigate or prosecute any alcohol or drug abuse patient.[facility]In the event this information is protected by the Federal Confidentiality of Alcohol and Drug Abuse Patient Records regulations: The Federal rules restrict any use of the information to criminally investigate or prosecute any alcohol or drug abuse patient.[facility]In the event this information is protected by the Federal Confidentiality of Alcohol and Drug Abuse Patient Records regulations: The Federal rules restrict any use of the information to criminally investigate or prosecute any alcohol or drug abuse patient.[facility]In the event this information is protected by the Federal Confidentiality of Alcohol and Drug Abuse Patient Records regulations: The Federal rules restrict any use of the information to criminally investigate or prosecute any alcohol or drug abuse patient.[facility]In the event this information is protected by the Federal Confidentiality of Alcohol and Drug Abuse Patient Records regulations: The Federal rules restrict any use of the information to criminally investigate or prosecute any alcohol or drug abuse patient.[facility]In the event this information is protected by the Federal Confidentiality of Alcohol and Drug Abuse Patient Records regulations: The Federal rules restrict any use of the information to criminally investigate or prosecute any alcohol or drug abuse patient.[facility]In the event this information is protected by the Federal Confidentiality of Alcohol and Drug Abuse Patient Records regulations: The Federal rules restrict any use of the information to criminally investigate or prosecute any alcohol or drug abuse patient.[facility]In the event this information is protected by the Federal Confidentiality of Alcohol and Drug Abuse Patient Records regulations: The Federal rules restrict any use of the information to criminally investigate or prosecute any alcohol or drug abuse patient.[facility]In the event this information is protected by the Federal Confidentiality of Alcohol and Drug Abuse Patient Records regulations: The Federal rules restrict any use of the information to criminally investigate or prosecute any alcohol or drug abuse patient.[facility]In the event this information is protected by the Federal Confidentiality of Alcohol and Drug Abuse Patient Records regulations: The Federal rules restrict any use of the information to criminally investigate or prosecute any alcohol or drug abuse patient.[facility]In the event this information is protected by the Federal Confidentiality of Alcohol and Drug Abuse Patient Records regulations: The Federal rules restrict any use of the information to criminally investigate or prosecute any alcohol or drug abuse patient.[facility]In the event this information is protected by the Federal Confidentiality of Alcohol and Drug Abuse Patient Records regulations: The Federal rules restrict any use of the information to criminally investigate or prosecute any alcohol or drug abuse patient.[facility]In the event this information is protected by the Federal Confidentiality of Alcohol and Drug Abuse Patient Records regulations: The Federal rules restrict any use of the information to criminally investigate or prosecute any alcohol or drug abuse patient.[facility]In the event this information is protected by the Federal Confidentiality of Alcohol and Drug Abuse Patient Records regulations: The Federal rules restrict any use of the information to criminally investigate or prosecute any alcohol or drug abuse patient.[facility]In the event this information is protected by the Federal Confidentiality of Alcohol and Drug Abuse Patient Records regulations: The Federal rules restrict any use of the information to criminally investigate or prosecute any alcohol or drug abuse patient.[facility]In the event this information is protected by the Federal Confidentiality of Alcohol and Drug Abuse Patient Records regulations: The Federal rules restrict any use of the information to criminally investigate or prosecute any alcohol or drug abuse patient.[facility]In the event this information is protected by the Federal Confidentiality of Alcohol and Drug Abuse Patient Records regulations: The Federal rules restrict any use of the information to criminally investigate or prosecute any alcohol or drug abuse patient.[facility]In the event this information is protected by the Federal Confidentiality of Alcohol and Drug Abuse Patient Records regulations: The Federal rules restrict any use of the information to criminally investigate or prosecute any alcohol or drug abuse patient.[facility]In the event this information is protected by the Federal Confidentiality of Alcohol and Drug Abuse Patient Records regulations: The Federal rules restrict any use of the information to criminally investigate or prosecute any alcohol or drug abuse patient.[facility]In the event this information is protected by the Federal Confidentiality of Alcohol and Drug Abuse Patient Records regulations: The Federal rules restrict any use of the information to criminally investigate or prosecute any alcohol or drug abuse patient.[facility]In the event this information is protected by the Federal Confidentiality of Alcohol and Drug Abuse Patient Records regulations: The Federal rules restrict any use of the information to criminally investigate or prosecute any alcohol or drug abuse patient.[facility]In the event this information is protected by the Federal Confidentiality of Alcohol and Drug Abuse Patient Records regulations: The Federal rules restrict any use of the information to criminally investigate or prosecute any alcohol or drug abuse patient.[facility]In the event this information is protected by the Federal Confidentiality of Alcohol and Drug Abuse Patient Records regulations: The Federal rules restrict any use of the information to criminally investigate or prosecute any alcohol or drug abuse patient.[facility]In the event this information is protected by the Federal Confidentiality of Alcohol and Drug Abuse Patient Records regulations: The Federal rules restrict any use of the information to criminally investigate or prosecute any alcohol or drug abuse patient.[facility]In the event this information is protected by the Federal Confidentiality of Alcohol and Drug Abuse Patient Records regulations: The Federal rules restrict any use of the information to criminally investigate or prosecute any alcohol or drug abuse patient.[facility]In the event this information is protected by the Federal Confidentiality of Alcohol and Drug Abuse Patient Records regulations: The Federal rules restrict any use of the information to criminally investigate or prosecute any alcohol or drug abuse patient.[facility]In the event this information is protected by the Federal Confidentiality of Alcohol and Drug Abuse Patient Records regulations: The Federal rules restrict any use of the information to criminally investigate or prosecute any alcohol or drug abuse patient.[facility]In the event this information is protected by the Federal Confidentiality of Alcohol and Drug Abuse Patient Records regulations: The Federal rules restrict any use of the information to criminally investigate or prosecute any alcohol or drug abuse patient.[facility]In the event this information is protected by the Federal Confidentiality of Alcohol and Drug Abuse Patient Records regulations: The Federal rules restrict any use of the information to criminally investigate or prosecute any alcohol or drug abuse patient.[facility]In the event this information is protected by the Federal Confidentiality of Alcohol and Drug Abuse Patient Records regulations: The Federal rules restrict any use of the information to criminally investigate or prosecute any alcohol or drug abuse patient.[facility]In the event this information is protected by the Federal Confidentiality of Alcohol and Drug Abuse Patient Records regulations: The Federal rules restrict any use of the information to criminally investigate or prosecute any alcohol or drug abuse patient.[facility]In the event this information is protected by the Federal Confidentiality of Alcohol and Drug Abuse Patient Records regulations: The Federal rules restrict any use of the information to criminally investigate or prosecute any alcohol or drug abuse patient.[facility]In the event this information is protected by the Federal Confidentiality of Alcohol and Drug Abuse Patient Records regulations: The Federal rules restrict any use of the information to criminally investigate or prosecute any alcohol or drug abuse patient.[facility]In the event this information is protected by the Federal Confidentiality of Alcohol and Drug Abuse Patient Records regulations: The Federal rules restrict any use of the information to criminally investigate or prosecute any alcohol or drug abuse patient.[facility]In the event this information is protected by the Federal Confidentiality of Alcohol and Drug Abuse Patient Records regulations: The Federal rules restrict any use of the information to criminally investigate or prosecute any alcohol or drug abuse patient.[facility]In the event this information is protected by the Federal Confidentiality of Alcohol and Drug Abuse Patient Records regulations: The Federal rules restrict any use of the information to criminally investigate or prosecute any alcohol or drug abuse patient.[facility] HospitalIn the event this information is protected by the Federal Confidentiality of Alcohol and Drug Abuse Patient Records regulations: The Federal rules restrict any use of the information to criminally investigate or prosecute any alcohol or drug abuse patient.[facility] the event this information is protected by the Federal Confidentiality of Alcohol and Drug Abuse Patient Records regulations: The Federal rules restrict any use of the information to criminally investigate or prosecute any alcohol or drug abuse patient.[facility]In the event this information is protected by the Federal Confidentiality of Alcohol and Drug Abuse Patient Records regulations: The Federal rules restrict any use of the information to criminally investigate or prosecute any alcohol or drug abuse patient.[facility]In the event this information is protected by the Federal Confidentiality of Alcohol and Drug Abuse Patient Records regulations: The Federal rules restrict any use of the information to criminally investigate or prosecute any alcohol or drug abuse patient.[facility]In the event this information is protected by the Federal Confidentiality of Alcohol and Drug Abuse Patient Records regulations: The Federal rules restrict any use of the information to criminally investigate or prosecute any alcohol or drug abuse patient.[facility]In the event this information is protected by the Federal Confidentiality of Alcohol and Drug Abuse Patient Records regulations: The Federal rules restrict any use of the information to criminally investigate or prosecute any alcohol or drug abuse patient.[facility]In the event this information is protected by the Federal Confidentiality of Alcohol and Drug Abuse Patient Records regulations: The Federal rules restrict any use of the information to criminally investigate or prosecute any alcohol or drug abuse patient.[facility]In the event this information is protected by the Federal Confidentiality of Alcohol and Drug Abuse Patient Records regulations: The Federal rules restrict any use of the information to criminally investigate or prosecute any alcohol or drug abuse patient.[facility]In the event this information is protected by the Federal Confidentiality of Alcohol and Drug Abuse Patient Records regulations: The Federal rules restrict any use of the information to criminally investigate or prosecute any alcohol or drug abuse patient.[facility]In the event this information is protected by the Federal Confidentiality of Alcohol and Drug Abuse Patient Records regulations: The Federal rules restrict any use of the information to criminally investigate or prosecute any alcohol or drug abuse patient.[facility]In the event this information is protected by the Federal Confidentiality of Alcohol and Drug Abuse Patient Records regulations: The Federal rules restrict any use of the information to criminally investigate or prosecute any alcohol or drug abuse patient.[facility]In the event this information is protected by the Federal Confidentiality of Alcohol and Drug Abuse Patient Records regulations: The Federal rules restrict any use of the information to criminally investigate or prosecute any alcohol or drug abuse patient.[facility]In the event this information is protected by the Federal Confidentiality of Alcohol and Drug Abuse Patient Records regulations: The Federal rules restrict any use of the information to criminally investigate or prosecute any alcohol or drug abuse patient.[facility]In the event this information is protected by the Federal Confidentiality of Alcohol and Drug Abuse Patient Records regulations: The Federal rules restrict any use of the information to criminally investigate or prosecute any alcohol or drug abuse patient.[facility]In the event this information is protected by the Federal Confidentiality of Alcohol and Drug Abuse Patient Records regulations: The Federal rules restrict any use of the information to criminally investigate or prosecute any alcohol or drug abuse patient.[facility]In the event this information is protected by the Federal Confidentiality of Alcohol and Drug Abuse Patient Records regulations: The Federal rules restrict any use of the information to criminally investigate or prosecute any alcohol or drug abuse patient.[facility]In the event this information is protected by the Federal Confidentiality of Alcohol and Drug Abuse Patient Records regulations: The Federal rules restrict any use of the information to criminally investigate or prosecute any alcohol or drug abuse patient.[facility]In the event this information is protected by the Federal Confidentiality of Alcohol and Drug Abuse Patient Records regulations: The Federal rules restrict any use of the information to criminally investigate or prosecute any alcohol or drug abuse patient.[facility]In the event this information is protected by the Federal Confidentiality of Alcohol and Drug Abuse Patient Records regulations: The Federal rules restrict any use of the information to criminally investigate or prosecute any alcohol or drug abuse patient.[facility]In the event this information is protected by the Federal Confidentiality of Alcohol and Drug Abuse Patient Records regulations: The Federal rules restrict any use of the information to criminally investigate or prosecute any alcohol or drug abuse patient.[facility]In the event this information is protected by the Federal Confidentiality of Alcohol and Drug Abuse Patient Records regulations: The Federal rules restrict any use of the information to criminally investigate or prosecute any alcohol or drug abuse patient.[facility]In the event this information is protected by the Federal Confidentiality of Alcohol and Drug Abuse Patient Records regulations: The Federal rules restrict any use of the information to criminally investigate or prosecute any alcohol or drug abuse patient.[facility]In the event this information is protected by the Federal Confidentiality of Alcohol and Drug Abuse Patient Records regulations: The Federal rules restrict any use of the information to criminally investigate or prosecute any alcohol or drug abuse patient.[facility]In the event this information is protected by the Federal Confidentiality of Alcohol and Drug Abuse Patient Records regulations: The Federal rules restrict any use of the information to criminally investigate or prosecute any alcohol or drug abuse patient.[facility]In the event this information is protected by the Federal Confidentiality of Alcohol and Drug Abuse Patient Records regulations: The Federal rules restrict any use of the information to criminally investigate or prosecute any alcohol or drug abuse patient.[facility]In the event this information is protected by the Federal Confidentiality of Alcohol and Drug Abuse Patient Records regulations: The Federal rules restrict any use of the information to criminally investigate or prosecute any alcohol or drug abuse patient.[facility]In the event this information is protected by the Federal Confidentiality of Alcohol and Drug Abuse Patient Records regulations: The Federal rules restrict any use of the information to criminally investigate or prosecute any alcohol or drug abuse patient.[facility]In the event this information is protected by the Federal Confidentiality of Alcohol and Drug Abuse Patient Records regulations: The Federal rules restrict any use of the information to criminally investigate or prosecute any alcohol or drug abuse patient.[facility]In the event this information is protected by the Federal Confidentiality of Alcohol and Drug Abuse Patient Records regulations: The Federal rules restrict any use of the information to criminally investigate or prosecute any alcohol or drug abuse patient.[facility]In the event this information is protected by the Federal Confidentiality of Alcohol and Drug Abuse Patient Records regulations: The Federal rules restrict any use of the information to criminally investigate or prosecute any alcohol or drug abuse patient.[facility]In the event this information is protected by the Federal Confidentiality of Alcohol and Drug Abuse Patient Records regulations: The Federal rules restrict any use of the information to criminally investigate or prosecute any alcohol or drug abuse patient.[facility]In the event this information is protected by the Federal Confidentiality of Alcohol and Drug Abuse Patient Records regulations: The Federal rules restrict any use of the information to criminally investigate or prosecute any alcohol or drug abuse patient.[facility]In the event this information is protected by the Federal Confidentiality of Alcohol and Drug Abuse Patient Records regulations: The Federal rules restrict any use of the information to criminally investigate or prosecute any alcohol or drug abuse patient.[facility]In the event this information is protected by the Federal Confidentiality of Alcohol and Drug Abuse Patient Records regulations: The Federal rules restrict any use of the information to criminally investigate or prosecute any alcohol or drug abuse patient.[facility]In the event this information is protected by the Federal Confidentiality of Alcohol and Drug Abuse Patient Records regulations: The Federal rules restrict any use of the information to criminally investigate or prosecute any alcohol or drug abuse patient.[facility]In the event this information is protected by the Federal Confidentiality of Alcohol and Drug Abuse Patient Records regulations: The Federal rules restrict any use of the information to criminally investigate or prosecute any alcohol or drug abuse patient.[facility]In the event this information is protected by the Federal Confidentiality of Alcohol and Drug Abuse Patient Records regulations: The Federal rules restrict any use of the information to criminally investigate or prosecute any alcohol or drug abuse patient.[facility]In the event this information is protected by the Federal Confidentiality of Alcohol and Drug Abuse Patient Records regulations: The Federal rules restrict any use of the information to criminally investigate or prosecute any alcohol or drug abuse patient.[facility]In the event this information is protected by the Federal Confidentiality of Alcohol and Drug Abuse Patient Records regulations: The Federal rules restrict any use of the information to criminally investigate or prosecute any alcohol or drug abuse patient.[facility]In the event this information is protected by the Federal Confidentiality of Alcohol and Drug Abuse Patient Records regulations: The Federal rules restrict any use of the information to criminally investigate or prosecute any alcohol or drug abuse patient.[facility]In the event this information is protected by the Federal Confidentiality of Alcohol and Drug Abuse Patient Records regulations: The Federal rules restrict any use of the information to criminally investigate or prosecute any alcohol or drug abuse patient.[facility]In the event this information is protected by the Federal Confidentiality of Alcohol and Drug Abuse Patient Records regulations: The Federal rules restrict any use of the information to criminally investigate or prosecute any alcohol or drug abuse patient.[facility]In the event this information is protected by the Federal Confidentiality of Alcohol and Drug Abuse Patient Records regulations: The Federal rules restrict any use of the information to criminally investigate or prosecute any alcohol or drug abuse patient.[facility]In the event this information is protected by the Federal Confidentiality of Alcohol and Drug Abuse Patient Records regulations: The Federal rules restrict any use of the information to criminally investigate or prosecute any alcohol or drug abuse patient.[facility] HospitalIn the event this information is protected by the Federal Confidentiality of Alcohol and Drug Abuse Patient Records regulations: The Federal rules restrict any use of the information to criminally investigate or prosecute any alcohol or drug abuse patient.[facility] HospitalIn the event this information is protected by the Federal Confidentiality of Alcohol and Drug Abuse Patient Records regulations: The Federal rules restrict any use of the information to criminally investigate or prosecute any alcohol or drug abuse patient.[facility] HospitalIn the event this information is protected by the Federal Confidentiality of Alcohol and Drug Abuse Patient Records regulations: The Federal rules restrict any use of the information to criminally investigate or prosecute any alcohol or drug abuse patient.[facility] HospitalIn the event this information is protected by the Federal Confidentiality of Alcohol and Drug Abuse Patient Records regulations: The Federal rules restrict any use of the information to criminally investigate or prosecute any alcohol or drug abuse patient.[facility] HospitalIn the event this information is protected by the Federal Confidentiality of Alcohol and Drug Abuse Patient Records regulations: The Federal rules restrict any use of the information to criminally investigate or prosecute any alcohol or drug abuse patient.[facility] HospitalIn the event this information is protected by the Federal Confidentiality of Alcohol and Drug Abuse Patient Records regulations: The Federal rules restrict any use of the information to criminally investigate or prosecute any alcohol or drug abuse patient.[facility] HospitalIn the event this information is protected by the Federal Confidentiality of Alcohol and Drug Abuse Patient Records regulations: The Federal rules restrict any use of the information to criminally investigate or prosecute any alcohol or drug abuse patient.[facility] the event this information is protected by the Federal Confidentiality of Alcohol and Drug Abuse Patient Records regulations: The Federal rules restrict any use of the information to criminally investigate or prosecute any alcohol or drug abuse patient.[facility] HospitalIn the event this information is protected by the Federal Confidentiality of Alcohol and Drug Abuse Patient Records regulations: The Federal rules restrict any use of the information to criminally investigate or prosecute any alcohol or drug abuse patient.[facility] HospitalIn the event this information is protected by the Federal Confidentiality of Alcohol and Drug Abuse Patient Records regulations: The Federal rules restrict any use of the information to criminally investigate or prosecute any alcohol or drug abuse patient.[facility] HospitalIn the event this information is protected by the Federal Confidentiality of Alcohol and Drug Abuse Patient Records regulations: The Federal rules restrict any use of the information to criminally investigate or prosecute any alcohol or drug abuse patient.[facility] HospitalIn the event this information is protected by the Federal Confidentiality of Alcohol and Drug Abuse Patient Records regulations: The Federal rules restrict any use of the information to criminally investigate or prosecute any alcohol or drug abuse patient.[facility] HospitalIn the event this information is protected by the Federal Confidentiality of Alcohol and Drug Abuse Patient Records regulations: The Federal rules restrict any use of the information to criminally investigate or prosecute any alcohol or drug abuse patient.[facility] HospitalIn the event this information is protected by the Federal Confidentiality of Alcohol and Drug Abuse Patient Records regulations: The Federal rules restrict any use of the information to criminally investigate or prosecute any alcohol or drug abuse patient.[facility] HospitalIn the event this information is protected by the Federal Confidentiality of Alcohol and Drug Abuse Patient Records regulations: The Federal rules restrict any use of the information to criminally investigate or prosecute any alcohol or drug abuse patient.[facility] HospitalIn the event this information is protected by the Federal Confidentiality of Alcohol and Drug Abuse Patient Records regulations: The Federal rules restrict any use of the information to criminally investigate or prosecute any alcohol or drug abuse patient.[facility] HospitalIn the event this information is protected by the Federal Confidentiality of Alcohol and Drug Abuse Patient Records regulations: The Federal rules restrict any use of the information to criminally investigate or prosecute any alcohol or drug abuse patient.[facility] HospitalIn the event this information is protected by the Federal Confidentiality of Alcohol and Drug Abuse Patient Records regulations: The Federal rules restrict any use of the information to criminally investigate or prosecute any alcohol or drug abuse patient.[facility] HospitalIn the event this information is protected by the Federal Confidentiality of Alcohol and Drug Abuse Patient Records regulations: The Federal rules restrict any use of the information to criminally investigate or prosecute any alcohol or drug abuse patient.[facility] HospitalIn the event this information is protected by the Federal Confidentiality of Alcohol and Drug Abuse Patient Records regulations: The Federal rules restrict any use of the information to criminally investigate or prosecute any alcohol or drug abuse patient.[facility] HospitalIn the event this information is protected by the Federal Confidentiality of Alcohol and Drug Abuse Patient Records regulations: The Federal rules restrict any use of the information to criminally investigate or prosecute any alcohol or drug abuse patient.[facility] HospitalIn the event this information is protected by the Federal Confidentiality of Alcohol and Drug Abuse Patient Records regulations: The Federal rules restrict any use of the information to criminally investigate or prosecute any alcohol or drug abuse patient.[facility] HospitalIn the event this information is protected by the Federal Confidentiality of Alcohol and Drug Abuse Patient Records regulations: The Federal rules restrict any use of the information to criminally investigate or prosecute any alcohol or drug abuse patient.[facility] HospitalIn the event this information is protected by the Federal Confidentiality of Alcohol and Drug Abuse Patient Records regulations: The Federal rules restrict any use of the information to criminally investigate or prosecute any alcohol or drug abuse patient.[facility] HospitalIn the event this information is protected by the Federal Confidentiality of Alcohol and Drug Abuse Patient Records regulations: The Federal rules restrict any use of the information to criminally investigate or prosecute any alcohol or drug abuse patient.[facility] HospitalIn the event this information is protected by the Federal Confidentiality of Alcohol and Drug Abuse Patient Records regulations: The Federal rules restrict any use of the information to criminally investigate or prosecute any alcohol or drug abuse patient.[facility] HospitalIn the event this information is protected by the Federal Confidentiality of Alcohol and Drug Abuse Patient Records regulations: The Federal rules restrict any use of the information to criminally investigate or prosecute any alcohol or drug abuse patient.[facility] HospitalIn the event this information is protected by the Federal Confidentiality of Alcohol and Drug Abuse Patient Records regulations: The Federal rules restrict any use of the information to criminally investigate or prosecute any alcohol or drug abuse patient.[facility] HospitalIn the event this information is protected by the Federal Confidentiality of Alcohol and Drug Abuse Patient Records regulations: The Federal rules restrict any use of the information to criminally investigate or prosecute any alcohol or drug abuse patient.[facility] HospitalIn the event this information is protected by the Federal Confidentiality of Alcohol and Drug Abuse Patient Records regulations: The Federal rules restrict any use of the information to criminally investigate or prosecute any alcohol or drug abuse patient.[facility] HospitalIn the event this information is protected by the Federal Confidentiality of Alcohol and Drug Abuse Patient Records regulations: The Federal rules restrict any use of the information to criminally investigate or prosecute any alcohol or drug abuse patient.[facility] HospitalIn the event this information is protected by the Federal Confidentiality of Alcohol and Drug Abuse Patient Records regulations: The Federal rules restrict any use of the information to criminally investigate or prosecute any alcohol or drug abuse patient.[facility] HospitalIn the event this information is protected by the Federal Confidentiality of Alcohol and Drug Abuse Patient Records regulations: The Federal rules restrict any use of the information to criminally investigate or prosecute any alcohol or drug abuse patient.[facility] HospitalIn the event this information is protected by the Federal Confidentiality of Alcohol and Drug Abuse Patient Records regulations: The Federal rules restrict any use of the information to criminally investigate or prosecute any alcohol or drug abuse patient.[facility] HospitalIn the event this information is protected by the Federal Confidentiality of Alcohol and Drug Abuse Patient Records regulations: The Federal rules restrict any use of the information to criminally investigate or prosecute any alcohol or drug abuse patient.[facility] HospitalIn the event this information is protected by the Federal Confidentiality of Alcohol and Drug Abuse Patient Records regulations: The Federal rules restrict any use of the information to criminally investigate or prosecute any alcohol or drug abuse patient.[facility] HospitalIn the event this information is protected by the Federal Confidentiality of Alcohol and Drug Abuse Patient Records regulations: The Federal rules restrict any use of the information to criminally investigate or prosecute any alcohol or drug abuse patient.[facility] HospitalIn the event this information is protected by the Federal Confidentiality of Alcohol and Drug Abuse Patient Records regulations: The Federal rules restrict any use of the information to criminally investigate or prosecute any alcohol or drug abuse patient.[facility] HospitalIn the event this information is protected by the Federal Confidentiality of Alcohol and Drug Abuse Patient Records regulations: The Federal rules restrict any use of the information to criminally investigate or prosecute any alcohol or drug abuse patient.[facility] HospitalIn the event this information is protected by the Federal Confidentiality of Alcohol and Drug Abuse Patient Records regulations: The Federal rules restrict any use of the information to criminally investigate or prosecute any alcohol or drug abuse patient.[facility] HospitalIn the event this information is protected by the Federal Confidentiality of Alcohol and Drug Abuse Patient Records regulations: The Federal rules restrict any use of the information to criminally investigate or prosecute any alcohol or drug abuse patient.[facility] HospitalIn the event this information is protected by the Federal Confidentiality of Alcohol and Drug Abuse Patient Records regulations: The Federal rules restrict any use of the information to criminally investigate or prosecute any alcohol or drug abuse patient.[facility] HospitalIn the event this information is protected by the Federal Confidentiality of Alcohol and Drug Abuse Patient Records regulations: The Federal rules restrict any use of the information to criminally investigate or prosecute any alcohol or drug abuse patient.[facility] HospitalIn the event this information is protected by the Federal Confidentiality of Alcohol and Drug Abuse Patient Records regulations: The Federal rules restrict any use of the information to criminally investigate or prosecute any alcohol or drug abuse patient.[facility] HospitalIn the event this information is protected by the Federal Confidentiality of Alcohol and Drug Abuse Patient Records regulations: The Federal rules restrict any use of the information to criminally investigate or prosecute any alcohol or drug abuse patient.[facility] HospitalIn the event this information is protected by the Federal Confidentiality of Alcohol and Drug Abuse Patient Records regulations: The Federal rules restrict any use of the information to criminally investigate or prosecute any alcohol or drug abuse patient.[facility] HospitalIn the event this information is protected by the Federal Confidentiality of Alcohol and Drug Abuse Patient Records regulations: The Federal rules restrict any use of the information to criminally investigate or prosecute any alcohol or drug abuse patient.[facility] HospitalIn the event this information is protected by the Federal Confidentiality of Alcohol and Drug Abuse Patient Records regulations: The Federal rules restrict any use of the information to criminally investigate or prosecute any alcohol or drug abuse patient.[facility] HospitalIn the event this information is protected by the Federal Confidentiality of Alcohol and Drug Abuse Patient Records regulations: The Federal rules restrict any use of the information to criminally investigate or prosecute any alcohol or drug abuse patient.[facility] HospitalIn the event this information is protected by the Federal Confidentiality of Alcohol and Drug Abuse Patient Records regulations: The Federal rules restrict any use of the information to criminally investigate or prosecute any alcohol or drug abuse patient.[facility] HospitalIn the event this information is protected by the Federal Confidentiality of Alcohol and Drug Abuse Patient Records regulations: The Federal rules restrict any use of the information to criminally investigate or prosecute any alcohol or drug abuse patient.[facility] HospitalIn the event this information is protected by the Federal Confidentiality of Alcohol and Drug Abuse Patient Records regulations: The Federal rules restrict any use of the information to criminally investigate or prosecute any alcohol or drug abuse patient.[facility] HospitalIn the event this information is protected by the Federal Confidentiality of Alcohol and Drug Abuse Patient Records regulations: The Federal rules restrict any use of the information to criminally investigate or prosecute any alcohol or drug abuse patient.[facility] HospitalIn the event this information is protected by the Federal Confidentiality of Alcohol and Drug Abuse Patient Records regulations: The Federal rules restrict any use of the information to criminally investigate or prosecute any alcohol or drug abuse patient.[facility] HospitalIn the event this information is protected by the Federal Confidentiality of Alcohol and Drug Abuse Patient Records regulations: The Federal rules restrict any use of the information to criminally investigate or prosecute any alcohol or drug abuse patient.[facility] HospitalIn the event this information is protected by the Federal Confidentiality of Alcohol and Drug Abuse Patient Records regulations: The Federal rules restrict any use of the information to criminally investigate or prosecute any alcohol or drug abuse patient.[facility] HospitalIn the event this information is protected by the Federal Confidentiality of Alcohol and Drug Abuse Patient Records regulations: The Federal rules restrict any use of the information to criminally investigate or prosecute any alcohol or drug abuse patient.[facility] the event this information is protected by the Federal Confidentiality of Alcohol and Drug Abuse Patient Records regulations: The Federal rules restrict any use of the information to criminally investigate or prosecute any alcohol or drug abuse patient.[facility] HospitalIn the event this information is protected by the Federal Confidentiality of Alcohol and Drug Abuse Patient Records regulations: The Federal rules restrict any use of the information to criminally investigate or prosecute any alcohol or drug abuse patient.[facility] HospitalIn the event this information is protected by the Federal Confidentiality of Alcohol and Drug Abuse Patient Records regulations: The Federal rules restrict any use of the information to criminally investigate or prosecute any alcohol or drug abuse patient.[facility] HospitalIn the event this information is protected by the Federal Confidentiality of Alcohol and Drug Abuse Patient Records regulations: The Federal rules restrict any use of the information to criminally investigate or prosecute any alcohol or drug abuse patient.[facility] HospitalIn the event this information is protected by the Federal Confidentiality of Alcohol and Drug Abuse Patient Records regulations: The Federal rules restrict any use of the information to criminally investigate or prosecute any alcohol or drug abuse patient.[facility] HospitalIn the event this information is protected by the Federal Confidentiality of Alcohol and Drug Abuse Patient Records regulations: The Federal rules restrict any use of the information to criminally investigate or prosecute any alcohol or drug abuse patient.[facility] HospitalIn the event this information is protected by the Federal Confidentiality of Alcohol and Drug Abuse Patient Records regulations: The Federal rules restrict any use of the information to criminally investigate or prosecute any alcohol or drug abuse patient.[facility] HospitalIn the event this information is protected by the Federal Confidentiality of Alcohol and Drug Abuse Patient Records regulations: The Federal rules restrict any use of the information to criminally investigate or prosecute any alcohol or drug abuse patient.[facility] HospitalIn the event this information is protected by the Federal Confidentiality of Alcohol and Drug Abuse Patient Records regulations: The Federal rules restrict any use of the information to criminally investigate or prosecute any alcohol or drug abuse patient.[facility] HospitalIn the event this information is protected by the Federal Confidentiality of Alcohol and Drug Abuse Patient Records regulations: The Federal rules restrict any use of the information to criminally investigate or prosecute any alcohol or drug abuse patient.[facility] HospitalIn the event this information is protected by the Federal Confidentiality of Alcohol and Drug Abuse Patient Records regulations: The Federal rules restrict any use of the information to criminally investigate or prosecute any alcohol or drug abuse patient.[facility] HospitalIn the event this information is protected by the Federal Confidentiality of Alcohol and Drug Abuse Patient Records regulations: The Federal rules restrict any use of the information to criminally investigate or prosecute any alcohol or drug abuse patient.[facility] HospitalIn the event this information is protected by the Federal Confidentiality of Alcohol and Drug Abuse Patient Records regulations: The Federal rules restrict any use of the information to criminally investigate or prosecute any alcohol or drug abuse patient.[facility] HospitalIn the event this information is protected by the Federal Confidentiality of Alcohol and Drug Abuse Patient Records regulations: The Federal rules restrict any use of the information to criminally investigate or prosecute any alcohol or drug abuse patient.[facility] HospitalIn the event this information is protected by the Federal Confidentiality of Alcohol and Drug Abuse Patient Records regulations: The Federal rules restrict any use of the information to criminally investigate or prosecute any alcohol or drug abuse patient.[facility] HospitalIn the event this information is protected by the Federal Confidentiality of Alcohol and Drug Abuse Patient Records regulations: The Federal rules restrict any use of the information to criminally investigate or prosecute any alcohol or drug abuse patient.[facility] Reason for Visit (unrecogniz ed section and content) Reason Comments Consult Reason Comments Appointment Reason Comments Nurse Visit [...] & [place]EL[place] [address] [place] [address] [address] Imaging Referral ID Status Reason Start Date Expiration Date V isits Requested Visits Authorized [id number] Closed Auto-Generate d Referral 03/05/2022 03/04/2023 1 [...] Flu vaccination Reason Comments Results Reason Comments [facility] OT POC Reason Comments Order Request Reason Comments Continued Social Work order Reason Comments Hospital Follow Up Reason Onset Date Comments Transition Of Care 08/17/2022 [facility] 08/10/22-1 Reason Comments Physical Therapy orders Reason Comments Forms Reason Comments Physical Therapy Update Reason Comments New Patient Slow transit dysmoti lity Reason Comments Orders [facility] Home health Reason Comments Med Change Request Reason Comments [facility], nursing, verbal order Reason Comments Long-Term Updated Reason Comments Patient Update Patient Question Reason Comments Approve for POC Reason Comments [facility] SN POC Reason Onset Date Comments Refill Request 02/17/2023 Reason Comments Delay/resumption of care Reason Onset Date Comments Transition Of Care 03/08/2023 TCM follow up Reason Comments [facility] PT POC Reason Comments Inpatient at [facility] Reason Comments Follow Up Phone Call Post Discharge F/U - attempt made. No answer. Reason Comments Home Health Nursing Call Reason Onset Date Comments Transition Of Care 04/20/2023 TCM follow-up Reason Onset Date Comments Transition Of Care 05/04/2023 TCM follow-up Reason Comments Long-Term Update Reason Comments Hospital F/U Reason Comments Patient Update Results Reason Comments Home Health Medication Order Reason Comments Established Patient Constipation Reason Comments 6 Month Exam Reason Comments Hospital Admission Reason Comments Orders recert patient for home health Reason Comments Hospital F/U Reason Onset Date Comments Transition Of Care 08/18/2023 [facility] 08/09/23-1 Reason Onset Date Comments Refill Request 09/06/2023 Reason Comments [facility], verbal order needed jie Reason Comments Elevated Heart Rate Reason Comments FYI-No Action Needed Reason Onset Date Comments Refill Request 09/22/2023 Reason Comments Home Health Update Reason Comments Orders Extension Edger - Other Reason Onset Date Comments Transition Of Care 09/30/2023 TCM Initial O utreach: [facility] [place] 09/22/23, UTI Reason Comments Hospital Follow Up [facility] follow up dx: UT I Reason Onset Date Comments Transition Of Care 10/14/2023 TCM follow up Reason Comments Imm/Inj Reason Comments Medication Question Clarification Reason Comments Order request Reason Comments urine culture results Reason Comments Problem with catheter Reason Onset Date Comments Refill Request 02/20/2024 Reason Onset Date Comments Population Health Navigation Outreach 02/29/2024 [place] Annual Wellness Visit Reason Comments information upcoming surgery Reason Comments Returning Patient's Call Reason Comments New Patient Specialty Diagnoses / Procedures Referred By Contac t Referred To Contact Neurosurgery Diagnoses 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) Procedures CONSULT TO NEUROSURGERY OFFICE/OUTPATIENT NEW HIGH MDM 60 MINUTES Brea Florentino MD [address] [place] [address] Referral ID Status Reason Start Date Expiration Date V isits Requested Visits Authorized [id number] Closed PCP Requested Referral 02/21/2024 02/20/2025 1 1 Reason Comments Radio Gen [id number] Specialty Diagnoses / Procedures Referred By Contac t Referred To Contact XR IMAGING Diagnoses Diverticulum of bladder Bladder stones Procedures XR SOFT SHOE DANCER SHUNT SERIES 5V SKULL/NECK/CHEST/ABD/CTL ABD RADIOLOGIC EXAMINATION SKULL 4< VIEWS RADIOLOGIC EXAMINATION NECK SOFT TISSUE RADIOLOGIC EXAM CHEST SINGLE VIEW RADIOLOGIC EXAM ABDOMEN 1 VIEW Brea Florentino MD [address] [place] [address] Xr Imaging [id number] Referral ID Status Reason Start Date Expiration Date V isits Requested Visits Authorized [id number] Closed Auto-Generate d Referral 03/06/2024 04/05/2025 1 1 Reason Comments Pre-Op Visit Reason Comments Pre-Op Exam Reason Comments Consult Reason Onset Date Comments Refill Request 04/16/2024 Reason Comments bowel issue Reason Onset Date Comments Transition Of Care 04/24/2024 Fabric nonres ponse single outreach Reason Comments Follow Up Cath change Reason Onset Date Comments Refill Request 06/06/2024 Reason Onset Date Comments Population Health Navigation Outreach 06/07/2024 [place] Mar [facility] Reason Onset Date Comments Transition Of Care 06/14/2024 Value based n on-response initial outreach Reason Comments Home Care Reason Comments Home Care Confirmation call. Reason Comments Patient Update Reason Comments Specialty Diagnoses / Procedures Referred By Contac t Referred To Contact [facility] Home Care [address] [place] [id number] Referral ID Status Reason Start Date Expiration Date Visits Re quested Visits Authorized [id number] 1 1 Reason Comments Hospital Follow Up [facility] 06/12/24 dx: SBO; has upcoming appt with motility Reason Onset Date Comments Population Health Navigation Outreach 06/28/2024 [place] Attributed Member- PCP Attribution Update Sent to Payor Reason Comments Established Patient SBO Reason Onset Date Comments Refill Request 08/15/2024 Reason Comments Home Care Notification of unma de home nurse visit. Reason Onset Date Comments Refill Request 09/06/2024 Reason Onset Date Comments Refill Request 11/21/2024 Reason Onset Date Comments Population Health Navigation Outreach 11/26/2024 [place] Attributed Member - Chart Review Reason Onset Date Comments Refill Request 12/20/2024 Reason Onset Date Comments Refill Request 02/18/2025 Reason Comments Home Care Patient Question Reason Comments Radiology US Specialty Diagnoses / Procedures Referred By Contac t Referred To Contact US IMAGING Diagnoses Neurogenic bladder Procedures US KIDNEY/BLADDER US RETROPERITONEAL REAL TIME W/IMAGE COMPLETE Brea Florentino MD [address] [place] [address] Phone: tel: fax: US IMAGING [id number] Referral ID Status Reason Start Date Expiration Date V isits Requested Visits Authorized [id number] Closed Auto-Generate d Referral 05/08/2025 06/07/2025 1 1 Reason Onset Date Comments Refill Request 05/13/2025 Reason Onset Date Comments Refill Request 05/14/2025 Reason Onset Date Comments Refill Request 06/03/2025 Reason Comments Home Care Pt fall Care Teams (unrecognized sec tion and content) Cuff Stitcher Relationship Specialty Start Date End Date Clifford Estes MD [facility] [place], [place] [id number] PCP - General Family Practice 12/11/18 Cuff Stitcher Relationship Specialty Start Date End Date Clifford Estes MD [address] [place] [address] PCP - General Family Practice 12/11/18 Cuff Stitcher Relationship Specialty Start Date End Date Clifford Estes MD [address] [place], [place] [address] PCP - General Family Practice 12/11/18 Cuff Stitcher Relationship Specialty Start Date End Date Clifford Estes MD [address] [place] [id number] PCP - General Family Practice 12/11/18 Cuff Stitcher Relationship Specialty Start Date End Date Clifford Estes MD [address] [facility] [place] [address] PCP - General Family Practice 12/11/18 Cuff Stitcher Relationship Specialty Start Date End Date Clifford Estes MD [address] [facility] [place] [address] PCP - General Family Practice 12/11/18 Cuff Stitcher Relationship Specialty Start Date End Date Clifford Estes MD [address] [facility] [place] [address] PCP - General Family Practice 12/11/18 Cuff Stitcher Relationship Specialty [place] [address] [place] [address], [place] [address] PCP - General Family Practice 12/11/18 Cuff Stitcher Relationship Specialty Start Date End Date Clifford Estes MD [address] [place] [address] PCP - General Family Practice 12/11/18 Cuff Stitcher Relationship Specialty Start Date End Date Clifford Estes MD [address] [place] [address] PCP - General Family Practice 12/11/18 Cuff Stitcher Relationship Specialty Start Date End Date Clifford Estes MD [address] [place] [address] PCP - General Family Practice 12/11/18 Francisca Jensen MD [address] [place], [place] [id number] [phone] Referring General Surgery 04/20/22 Francisca Jensen MD [address] [place] [address] Home Care Physician General Surgery 04/20/22 Cuff Stitcher Relationship Specialty Start Date End Date Clifford Estes MD [address] [place] [address] PCP - General Family Practice 12/11/18 Francisca Jensen MD [address] [place] [address] Referring General Surgery 04/20/22 Francisca Jensen MD [address] [place] [address] Home Care Physician General Surgery 04/20/22 Cuff Stitcher Relationship Specialty Start Date End Date Clifford Estes MD [address] [place] [address] PCP - General Family Practice 12/11/18 Francisca Jensen MD [address] [place] [address] Referring General Surgery 04/20/22 Francisca Jensen MD [address] [place] [address] Home Care Physician General Surgery 04/20/22 Cuff Stitcher Relationship Specialty Start Date End Date Clifford Estes MD [address] [place] [address] PCP - General Family Practice 12/11/18 Francisca Jensen MD [address] [place] [address] Referring General Surgery 04/20/22 Francisca Jensen MD [address] [place] [address] Home Care Physician General Surgery 04/20/22 Cuff Stitcher Relationship Specialty Start Date End Date Clifford Estes MD [address] [place] [address] PCP - General Family Practice 12/11/18 Francisca Jensen MD [address] [place] [address] Referring General Surgery 04/20/22 Francisca Jensen MD [address] [place] [address] Home Care Physician General Surgery 04/20/22 Cuff Stitcher Relationship Specialty Start Date End Date Clifford Estes MD [address] [place] [address] PCP - General Family Practice 12/11/18 Francisca Jensen MD [address] [place] [address] Referring General Surgery 04/20/22 Francisca Jensen MD [address] [place] [address] Home Care Physician General Surgery 04/20/22 Cuff Stitcher Relationship Specialty Start Date End Date Clifford Estes MD [address] [place] [address] PCP - General Family Practice 12/11/18 Francisca Jensen MD [address] [place] [address] Referring General Surgery 04/20/22 Francisca Jensen MD [address] [place] [address] Home Care Provider General Surgery 04/20/22 Cuff Stitcher Relationship Specialty Start Date End Date Clifford Estes MD [address] [place] [address] PCP - General Family Practice 12/11/18 Francisca Jensen MD [address] [place] [address] Referring General Surgery 04/20/22 Francisca Jensen MD [address] [place] [address] Home Care Provider General Surgery 04/20/22 Cuff Stitcher Relationship Specialty Start Date End Date Clifford Estes MD [address] [place] [address] PCP - General Family Practice 12/11/18 Francisca Jensen MD [address] [place] [address] Referring General Surgery 04/20/22 Francisca Jensen MD [address] [place] [address] Home Care Provider General Surgery 04/20/22 Cuff Stitcher Relationship Specialty Start Date End Date Clifford Estes MD [address] [place] [address] PCP - General Family Practice 12/11/18 Francisca Jensen MD [address] [place] [address] Referring General Surgery 04/20/22 Francisca Jensen MD [address] [place] [address] Home Care Provider General Surgery 04/20/22 Cuff Stitcher Relationship Specialty Start Date End Date Clifford Estes MD [address] [place] [address] PCP - General Family Medicine 12/11/18 Francisca Jensen MD [address] [place] [address] Referring General Surgery 04/20/22 Francisca Jensen MD [address] [place] [address] Home Care Provider General Surgery 04/20/22 Cuff Stitcher Relationship Specialty Start Date End Date Clifford Estes MD [address] [place] [address] PCP - General Family Medicine 12/11/18 Francisca Jensen MD [address] [place] [address] Referring General Surgery 04/20/22 Francisca Jensen MD [address] [place] [address] Home Care Provider General Surgery 04/20/22 Cuff Stitcher Relationship Specialty Start Date End Date Clifford Estes MD [address] [place] [address] PCP - General Family Medicine 12/11/18 Francisca Jensen MD [address] [place] [address] Referring General Surgery 04/20/22 Francisca Jensen MD [address] [place] [address] Home Care Provider General Surgery 04/20/22 Cuff Stitcher Relationship Specialty Start Date End Date Clifford Estes MD [address] [place] [address] PCP - General Family Medicine 12/11/18 Francisca Jensen MD [address] [place] [address] Referring General Surgery 04/20/22 Francisca Jensen MD [address] [place] [address] Home Care Provider General Surgery 04/20/22 Cuff Stitcher Relationship Specialty Start Date End Date Clifford Estes MD [address] [place] [address] PCP - General Family Medicine 12/11/18 Francisca Jensen MD [address] [place] [address] Referring General Surgery 04/20/22 Francisca Jensen MD [address] [place] [address] Home Care Provider General Surgery 04/20/22 Cuff Stitcher Relationship Specialty Start Date End Date Clifford Estes MD [address] [place] [address] PCP - General Family Medicine 12/11/18 Francisca Jensen MD [address] [place] [address] Referring General Surgery 04/20/22 Francisca Jensen MD [address] [place] [address] Home Care Provider General Surgery 04/20/22 Cuff Stitcher Relationship Specialty Start Date End Date Clifford Estes MD [address] [place] [address] PCP - General Family Medicine 12/11/18 Francisca Jensen MD [address] [place] [address] Referring General Surgery 04/20/22 Francisca Jensen MD [address] [place] [address] Home Care Provider General Surgery 04/20/22 Cuff Stitcher Relationship Specialty Start Date End Date Clifford Estes MD [address] [place] [address] PCP - General Family Medicine 12/11/18 Francisca Jensen MD [address] [place], [place] 4[address] Referring General Surgery 04/20/22 Francisca Jensen MD [address] [place], [place] 72132[address] [phone] Home Care Provider General Surgery 04/20/22 Cuff Stitcher Relationship Specialty Start Date End Date Clifford Estes MD [address] [place], [place] [address]41 PCP - General Family Medicine 12/11/18 Francisca Jensen MD [address] [place] [address] Referring General Surgery 04/20/22 Francisca Jensen MD [address] [place] [address] Home Care Provider General Surgery 04/20/22 Team Status: Active Member Role Status Dates Dr. Damian Aldana MD Family Provider Active Dr. Clifford Estes MD Primary Care Provider Active Team Status: Active Member Role Status Dates Dr. Clifford Estes MD Primary Care Provider Active Dr. Maddie Vasquez MD Emergency Provider Active Dr. Sidney Hinkle MD Admit Provider, Other Provide r Active Dr. Geo Mercer DO Attending Provider, Other Pro vider Active Dr. Juan Miguel Castro MD Other Provider Active Team Status: Active Member Role Status Dates Dr. Clifford Estes MD Primary Care Provider Active Dr. Richard Dodd DO Emergency Provider Active Dr. Geo Mercer DO Admit Provider, Other Provide r Active Dr. Dorene Ruiz MD Attending Provider, Other Pro vider Active Team Status: Active Member Role Status Dates Dr. Clifford Estes MD Primary Care Provider Active Dr. Richard Dodd DO Emergency Provider Active Dr. Geo Mercer , DO Admit Provider, Attending Provider, Other Provider Active Dr. Dorene Ruiz MD Other Provider Active Team Status: Active Member Role Status Dates Dr. Clifford Estes MD Primary Care Provider Active Dr. Parvez Moore MD Emergency Provider Active Dr. Diane Franco DO Attending Provider Active Team Status: Active Member Role Status Dates Dr. Clifford Estes MD Primary Care Provider Active Dr. Parvez Moore MD Emergency Provider Active Dr. Diane Franco DO Admit Provider, Other Provider Ac tive Dr. Laura Kidd MD Other Provider Active Dr. Conchita Rankin MD Attending Provider, Other Prov ider Active Dr. Kevyn Oliva MD Other Provider Active Team Status: Active Member Role Status Dates Dr. Clifford Estes MD Primary Care Provider Active Dr. Parvez Moore MD Emergency Provider Active Dr. Diane Franco DO Admit Provider, Other Provider Ac tive Dr. Laura Kidd MD Other Provider Active Dr. Kevyn Oliva MD Other Provider Active Dr. Ace Moncada MD Attending Provider, Other Provider Active Dr. Conchita Rankin MD Other Provider Active Team Status: Inactive Member Role Status Dates Dr. Clifford Estes MD Primary Care Provider Active Dr. Maddie Vasquez MD Emergency Provider Active Dr. Sidney Hinkle MD Admit Provider, Other Provide r Active Dr. Geo Mercer DO Attending Provider Active Dr. Juan Miguel Castro MD Other Provider Active Team Status: Inactive Member Role Status Dates Dr. Clifford Estes MD Primary Care Provider Active Dr. Richard Dodd DO Emergency Provider Active Dr. Geo Mercer DO Admit Provider, Attending Pro vider Active Dr. Dorene Ruiz MD Other Provider Active Team Status: Inactive Member Role Status Dates Dr. Clifford Estes MD Primary Care Provider Active Dr. Parvez Moore MD Emergency Provider Active Dr. Diane Franco DO Admit Provider, Other Provider Ac tive Dr. Laura Kidd MD Other Provider Active Dr. Kevyn Oliva MD Other Provider Active Dr. Ace Moncada MD Attending Provider Active Dr. Conchita Rankin MD Other Provider Active Team Status: Inactive Member Role Status Dates Dr. Clifford Estes MD Primary Care Provider Active Dr. Abelardo Albarran DO Attending Provider, Emergency Provide r Active Team Status: Inactive Member Role Status Dates Dr. Clifford Estes MD Primary Care Provider Active Josiah Schaffer MD Emergency Provider Active Team Status: Inactive Member Role Status Dates Dr. Clifford Estes MD Primary Care Provider Active Josiah Schaffer MD Attending Provider, Emergency Provid er Active Team Status: Active Member Role Status Dates Dr. Clifford Estes MD Primary Care Provider Active Dr. Abelardo Albarran DO Emergency Provider Active Dr. Nikki Celestin MD Admit Provider, Attending Prov ider Active Team Status: Active Member Role Status Dates Dr. Clifford Estes MD Primary Care Provider Active Dr. Abelardo Albarran DO Emergency Provider Active Dr. Nikki Celestin MD Admit Provider, Other Provider Active Dr. Laura Kidd MD Other Provider Active Dr. Geo Mercer , Attending Provider, Other Pro vider Active Dr. Kevyn Oliva MD Other Provider Active Team Status: Inactive Member Role Status Dates Dr. Clifford Estes MD Primary Care Provider Active Dr. Abelardo Albarran DO Emergency Provider Active Dr. Nikki Celestin MD Admit Provider, Other Provider Active Dr. Laura Kidd MD Other Provider Active Dr. Geo Mercer DO Attending Provider Active Dr. Kevyn Oliva MD Other Provider Active Cuff Stitcher Relationship Specialty Start Date End Date Clifford Estes MD [address] [place], [place] [id number] PCP - General Family Medicine 12/11/18 Francisca Jensen MD [address] [place] [address] Referring General Surgery 04/20/22 Francisca Jensen MD [address] [place] [address] Home Care Provider General Surgery 04/20/22 Katiana Bill, fine arts instructor [employer] Ground Crew Supervisor 03/01/23 03/30/23 Cuff Stitcher Relationship Specialty Start Date End Date Clifford Estes MD [address] [place], [place] [id number] PCP - General Family Medicine 12/11/18 Francisca Jensen MD [address] [place] [address] Referring General Surgery 04/20/22 Francisca Jensen MD [address] [place] [address] Home Care Provider General Surgery 04/20/22 Katiana Bill, fine arts instructor [employer] Ground Crew Supervisor 03/01/23 03/30/23 Cuff Stitcher Relationship Specialty [place] [address] [place] [address] [id number] PCP - General Family Medicine 12/11/18 Francisca Jensen MD [address] [place] [address] Referring General Surgery 04/20/22 Francisca Jensen MD [address] [place] [address] Home Care Provider General Surgery 04/20/22 Giselle Medina, fine arts instructor [employer] Ground Crew Supervisor 04/06/23 05/04/23 Cuff Stitcher Relationship Specialty Start Date End Date Clifford Estes MD [address] [place], [place] [id number] PCP - General Family Medicine 12/11/18 Francisca Jensen MD [address] [place] [address] Referring General Surgery 04/20/22 Francisca Jensen MD [address] [place] [address] Home Care Provider General Surgery 04/20/22 Giselle Medina, fine arts instructor [employer] Ground Crew Supervisor 04/06/23 05/04/23 Cuff Stitcher Relationship Specialty Start Date End Date Clifford Estes MD [address] [place] [address] PCP - General Family Medicine 12/11/18 Francisca Jensen MD [address] [place] [address] Referring General Surgery 04/20/22 Francisca Jensen MD [address] [place] [address] Home Care Provider General Surgery 04/20/22 Giselle Medina RN Primary Care [employer] Ground Crew Supervisor 04/06/23 05/04/23 Team Status: Active Member Role Status Dates Dr. Clifford Estes MD Primary Care Provider Active Dr. Jian Jose MD Emergency Provider Active Dr. Myke Diego MD Attending Provider Active Team Status: Active Member Role Status Dates Dr. Clifford Estes MD Primary Care Provider Active Dr. Jian Jose MD Emergency Provider Active Dr. Richard Palacio DO Admit Provider, At tending Provider, Other Provider Active Team Status: Active Member Role Status Dates Dr. Clifford Estes MD Primary Care Provider Active Dr. Abdirahman Jones DO Emergency Provider Active Dr. Richard Palacio DO Attending Provider Active Team Status: Active Member Role Status Dates Dr. Clifford Estes MD Primary Care Provider Active Dr. Abdirahman Jones DO Emergency Provider Active Dr. Richard Palacio DO Admit Provider, Attending Provid er, Other Provider Active Team Status: Active Member Role Status Dates Dr. Clifford Estes MD Primary Care Provider Active Dr. Abdirahman Jones DO Emergency Provider Active Dr. Richard Palacio DO Admit Provider, Other Provider A ctive Dr. Ace Moncada MD Other Provider Active Dr. Kaden Haynes , Attending Provider Active Team Status: Active Member Role Status Dates Dr. Clifford Estes MD Primary Care Provider Active Dr. Abdirahman Jones DO Emergency Provider Active Dr. Richard Palacio DO Admit Provider, Other Provider A ctive Dr. Ace Moncada MD Attending Provider, Other Provider Active Team Status: Inactive Member Role Status Dates Dr. Clifford Estes MD Primary Care Provider Active Dr. Rivera Dodge DO Attending Provider, Emergency Provider Active Team Status: Inactive Member Role Status Dates Dr. Clifford Estes MD Primary Care Provider Active Dr. Jian Jose MD Emergency Provider Active Dr. Richard Palacio DO Admit Provider, Attending Provid er Active Team Status: Inactive Member Role Status Dates Dr. Clifford Estes MD Primary Care Provider Active Dr. Abdirahman Jones DO Emergency Provider Active Dr. Richard Palacio DO Admit Provider, Other Provider A ctive Dr. Ace Moncada MD Attending Provider Active Cuff Stitcher Relationship Specialty Start Date End Date Clifford Estes MD [address] [place] [address] PCP - General Family Medicine 12/11/18 Francisca Jensen MD [address] [place] [address] Referring General Surgery 04/20/22 Francisca Jensen MD [address] [place] [address] Home Care Provider General Surgery 04/20/22 Cuff Stitcher Relationship Specialty Start Date End Date Clifford Estes MD [address] [place] [address] PCP - General Family Medicine 12/11/18 Francisca Jensen MD [address] [place] [address] Referring General Surgery 04/20/22 Francisca Jensen MD [address] [place] [address] Home Care Provider General Surgery 04/20/22 Cuff Stitcher Relationship Specialty Start Date End Date Clifford Estes MD [address] [place] [address] PCP - General Family Medicine 12/11/18 Francisca Jensen MD [address] [place] [address] Referring General Surgery 04/20/22 Francisca Jensen MD [address] [place] [address] Home Care Provider General Surgery 04/20/22 Cuff Stitcher Relationship Specialty Start Date End Date Clifford Estes MD [address] [place] [address] PCP - General Family Medicine 12/11/18 Francisca Jensen MD [address] [place] [address] Referring General Surgery 04/20/22 Francisca Jensen MD [address] [place] [address] Home Care Provider General Surgery 04/20/22 Cuff Stitcher Relationship Specialty Start Date End Date Clifford Estes MD [address] [place] [address] PCP - General Family Medicine 12/11/18 Francisca Jensen MD [address] [place] [address] Referring General Surgery 04/20/22 Francisca Jensen MD [address] [place] [address] Home Care Provider General Surgery 04/20/22 Cuff Stitcher Relationship Specialty Start Date End Date Clifford Estes MD [address] [place], [place] [address] PCP - General Family Medicine 12/11/18 Francisca Jensen MD [address] [place] [address] Referring General Surgery 04/20/22 Francisca Jensen MD [address] [place] [address] Home Care Provider General Surgery 04/20/22 Cuff Stitcher Relationship Specialty Start Date End Date Clifford Estes MD [address] [place], [place] 4027[address] PCP - General Family Medicine 12/11/18 Francisca Jensen MD [address] [place] [address] Referring General Surgery 04/20/22 Francisca Jensen MD [address] [place] [address] Home Care Provider General Surgery 04/20/22 Giselle Medina, fine arts instructor [employer] Ground [employer] Supervisor 04/06/23 05/04/23 Cuff Stitcher Relationship Specialty Start Date End Date Clifford Estes MD [address] [place], [place] 369621 PCP - General Family Medicine 12/11/18 Francisca Jensen MD [address] [place] [address] Referring General Surgery 04/20/22 Francisca Jensen MD [address] [place], [place] [id number] Home Care Provider General Surgery 04/20/22 Cuff Stitcher Relationship Specialty Start Date End Date Clifford Estes MD [address] [place], [place] [address]61 PCP - General Family Medicine 12/11/18 Francisca Jensen MD [address] [place] [address] Referring General Surgery 04/20/22 Francisca Jensen MD [address] [place] [address] Home Care Provider General Surgery 04/20/22 Cuff Stitcher Relationship Specialty Start Date End Date Clifford Estes MD [address] [place] [address] PCP - General Family Medicine 12/11/18 Francisca Jensen MD [address] [place], [place] [id number] Referring General Surgery 04/20/22 Francisca Jensen MD [address] [place] [address] Home Care Provider General Surgery 04/20/22 Team Status: Active Member Role Status Dates Dr. Clifford Estes MD Primary Care Provider Active Dr. Abdirahman Jones DO Emergency Provider Active Dr. Richard Palacio DO Admit Provider, Other Provider A ctive Dr. Ace Moncada MD Referring Provider, Other Provider Active Dr. Kaden Haynes , DO Attending Provider Active Team Status: Active Member Role Status Dates Dr. Clifford Estes MD Primary Care Provider Active Dr. Abdirahman Jones DO Emergency Provider Active Dr. Richard Palacio DO Admit Provider, Attending Provid er Active Cuff Stitcher Relationship Specialty Start Date End Date Clifford Estes MD [address] [place] [address] PCP - General Family Medicine 12/11/18 Francisca Jensen MD [address] [place] [address] Referring General Surgery 04/20/22 Francisca Jensen MD [address] [place], [place] [id number] Home Care Provider General Surgery 04/20/22 Team Status: Active Member Role Status Dates Dr. Clifford Estes MD Primary Care Provider Active Dr. Abdirahman Jones DO Emergency Provider Active Dr. Richard Palacio DO Admit Provider, Other Provider A ctive Dr. Conchita Rankin MD Attending Provider, Other Prov ider Active Team Status: Inactive Member Role Status Dates Dr. Clifford Estes MD Primary Care Provider Active Dr. Abdirahman Jones DO Emergency Provider Active Dr. Richard Palacio DO Admit Provider, Other Provider A ctive Dr. Conchita Rankin MD Attending Provider Active Team Status: Active Member Role Status Dates Dr. Clifford Estes MD Primary Care Provider Active Dr. Bennett Olivarez MD Emergency Provider Active Dr. Gavino Pena DO Admit Provider, Attending Pr ovidfernando Active Team Status: Active Member Role Status Dates Dr. Clifford Estes MD Primary Care Provider Active Dr. Bennett Olivarez MD Emergency Provider Active Dr. Gavino Pena DO Admit Provider, Other Provid er Active Dr. Richard Palacio DO Attending Provider, Other Provid er Active Team Status: Active Member Role Status Dates Dr. Clifford Estes MD Primary Care Provider Active Dr. Bennett Olivarez MD Emergency Provider Active Dr. Gavino Pena , DO Admit Provider, Other Provid er Active Dr. London Braden MD Attending Provider, Other Provi kristine Active Dr. Richard Palacio , DO Other Provider Active Team Status: Inactive Member Role Status Dates Dr. Clifford Estes MD Primary Care Provider Active Dr. Bennett Olivarez MD Emergency Provider Active Dr. Gavino Pena , DO Admit Provider, Other Provid er Active Dr. London Braden MD Attending Provider Active Dr. Richard Palacio , DO Other Provider Active Cuff Stitcher Relationship Specialty Start Date End Date Clifford Estes MD [address] [place] [address] PCP - General Family Medicine 12/11/18 Francisca Jensen MD [address] [place] [address] Referring General Surgery 04/20/22 Francisca Jensen MD [address] [place] [address] Home Care Provider General Surgery 04/20/22 Cuff Stitcher Relationship Specialty Start Date End Date Clifford Estes MD [address] [place] [address] PCP - General Family Medicine 12/11/18 Francisca Jensen MD [address] [place] [address] Referring General Surgery 04/20/22 Francisca Jensen MD [address] [place] [address] Home Care Provider General Surgery 04/20/22 Katiana Bill, NEIL [address] [place] [address] Primary Care [employer] Ground Crew Supervisor 09/30/23 10/21/23 Cuff Stitcher Relationship Specialty Start Date End Date Clifford Estes MD [address] [place], [place] 782821 PCP - General Family Medicine 12/11/18 Francisca Jensen MD [address] [place] [address] Referring General Surgery 04/20/22 Francisca Jensen MD [address] [place] [address] Home Care Provider General Surgery 04/20/22 Katiana Bill, NEIL [address] [id number] Primary Care [employer] Ground Crew Supervisor 09/30/23 10/21/23 Cuff Stitcher Relationship Specialty Start Date End Date Clifford Estes MD [address] [place], [place] [address]81 PCP - General Family Medicine 12/11/18 Francisca Jensen MD [address] [place] [address] Referring General Surgery 04/20/22 Francisca Jensen MD [address] [place] [address] Home Care Provider General Surgery 04/20/22 Katiana Bill, NEIL [address] [place] [address] Primary Care [employer] Ground Crew Supervisor 09/30/23 10/21/23 Cuff Stitcher Relationship Specialty Start Date End Date Clifford Estes MD [address] [place], [place] 378441 PCP - General Family Medicine 12/11/18 Francisca Jensen MD [address] [place], [place] [address] Referring General Surgery 04/20/22 Francisca Jensen MD [address] [place] [address] Home Care Provider General Surgery 04/20/22 Katiana Bill RN [address] [id number] Primary Care [employer] Ground Crew Supervisor 09/30/23 10/21/23 Cuff Stitcher Relationship Specialty Start Date End Date Clifford Estes MD [address] [place] [address] PCP - General Family Medicine 12/11/18 Francisca Jensen MD [address] [place] [address] Referring General Surgery 04/20/22 Francisca Jensen MD [address] [place] [address] Home Care Provider General Surgery 04/20/22 Katiana Bill RN [address] [id number] Primary Care [employer] Ground Crew Supervisor 09/30/23 10/21/23 Cuff Stitcher Relationship Specialty Start Date End Date Clifford Estes MD [address] [place], [place] 711051 PCP - General Family Medicine 12/11/18 Francisca Jensen MD [address] [place], [place] [id number] [phone] Referring General Surgery 04/20/22 Francisca Jensen MD [address] [place], [place] [id number] Home Care Provider General Surgery 04/20/22 Team Status: Inactive Member Role Status Dates Dr. Clifford Estes MD Primary Care Provider Active Dr. Abelardo Albarran DO Emergency Provider Active Cuff Stitcher Relationship Specialty Start Date End Date Clifford Estes MD [address] [place] [address] PCP - General Family Medicine 12/11/18 Francisca Jensen MD [address] [place] [address] [phone] Referring General Surgery 04/20/22 Francisca Jensen MD [address] [place] [address] Home Care Provider General Surgery 04/20/22 Cuff Stitcher Relationship Specialty Start Date End Date Clifford Estes MD [address] [place] [address] PCP - General Family Medicine 12/11/18 Francisca Jensen MD [address] [place], [place] [id number] [phone] Referring General Surgery 04/20/22 Francisca Jensen MD [address] [place] 6397331 [phone] Home Care Provider General Surgery 04/20/22 Team Status: Inactive Member Role Status Dates Dr. Clifford Estes MD Primary Care Provider Active Dr. Reji Woods DO Attending Provider, Emergency Michael marrero Active Team Status: Inactive Member Role Status Dates Dr. Clifford Estes MD Primary Care Provider, Attending Provider Active Cuff Stitcher Relationship Specialty Start Date End Date Clifford Estes MD [address] [place] [address] PCP - General Family Medicine 12/11/18 Francisca Jensen MD [address] [place] [address] Referring General Surgery 04/20/22 Francisca Jensen MD [address] [place] [address] Home Care Provider General Surgery 04/20/22 Cuff Stitcher Relationship Specialty Start Date End Date Clifford Estes MD [address] [place] [address] PCP - General Family Medicine 12/11/18 Francisca Jensen MD [address] [place] [address] Referring General Surgery 04/20/22 Francisca Jensen MD [address] [place] [address] Home Care Provider General Surgery 04/20/22 Cuff Stitcher Relationship Specialty Start Date End Date Clifford Estes MD [address] [place] [address] PCP - General Family Medicine 12/11/18 Francisca Jensen MD [address] [place] [address] Referring General Surgery 04/20/22 Francisca Jensen MD [address] [place] [address] Home Care Provider General Surgery 04/20/22 Cuff Stitcher Relationship Specialty Start Date End Date Clifford Estes MD [address] [place] [address] PCP - General Family Medicine 12/11/18 Francisca Jensen MD [address] [place], [place] 3616718 [phone] Referring General Surgery 04/20/22 Francisca Jensen MD [address] [place] [address] Home Care Provider General Surgery 04/20/22 Cuff Stitcher Relationship Specialty Start Date End Date Clifford Estes MD [address] [place], [place] 052191 PCP - General Family Medicine 12/11/18 Francisca Jensen MD [address] [place] [address] Referring General Surgery 04/20/22 Francisca Jensen MD [address] [place] [address] Home Care Provider General Surgery 04/20/22 Cuff Stitcher Relationship Specialty Start Date End Date Clifford Estes MD [address] [place], [place] 336251 PCP - General Family Medicine 12/11/18 Francisca Jensen MD [address] [place] [address] Referring General Surgery 04/20/22 Francisca Jensen MD [address] [place], [place] [address] Home Care Provider General Surgery 04/20/22 Cuff Stitcher Relationship Specialty Start Date End Date lCifford Etses MD [address] [place] [address] PCP - General Family Medicine 12/11/18 Francisca Jensen MD [address] [place], [place] 1299111 [phone] Referring General Surgery 04/20/22 Francisca Jensen MD [address] [place], [place] [address] Home Care Provider General Surgery 04/20/22 Cuff Stitcher Relationship Specialty Start Date End Date Clifford Estes MD [address] [place], [place] 860711 PCP - General Family Medicine 12/11/18 Francisca Jensen MD [address] [place] [address] Referring General Surgery 04/20/22 Francisca Jensen MD [address] [place], [place] 028[address] [phone] Home Care Provider General Surgery 04/20/22 Cuff Stitcher Relationship Specialty Start Date End Date Clifford Estes MD [address] [place] [address] PCP - General Family Medicine 12/11/18 Francisca Jensen MD [address] [place] [address] Referring General Surgery 04/20/22 Francisca Jensen MD [address] [place] [address] Home Care Provider General Surgery 04/20/22 Cuff Stitcher Relationship Specialty Start Date End Date Clifford Estes MD [address] [place] [address] PCP - General Family Medicine 12/11/18 Francisca Jensen MD [address] [place] [address] Referring General Surgery 04/20/22 Francisca Jensen MD [address] [place] [address] Home Care Provider General Surgery 04/20/22 Cuff Stitcher Relationship Specialty Start Date End Date Clifford Estes MD [address] [place] [address] PCP - General Family Medicine 12/11/18 Francisca Jensen MD [address] [place] [address] Referring General Surgery 04/20/22 Francisca Jensen MD [address] [place] [address] Home Care Provider General Surgery 04/20/22 Cuff Stitcher Relationship Specialty Start Date End Date Clifford Estes MD [address] [place] [address] PCP - General Family Medicine 12/11/18 Francisca Jensen MD [address] [place] [address] Referring General Surgery 04/20/22 Francisca Jensen MD [address] [place], [place] 2825[address] [phone] Home Care Provider General Surgery 04/20/22 Cuff Stitcher Relationship Specialty Start Date End Date Clifford Estes MD [address] [place] [address] PCP - General Family Medicine 12/11/18 Francisca Jensen MD [address] [place], [place] 9459091 [phone] Referring General Surgery 04/20/22 Francisca Jensen MD [address] [place] [address] Home Care Provider General Surgery 04/20/22 Team Status: Inactive Member Role Status Dates Dr. Clifford Estes MD Primary Care Provider Active Dr. Reji Woods DO Emergency Provider Active Cuff Stitcher Relationship Specialty Start Date End Date lCifford Estes MD [address] [place] [address] PCP - General Family Medicine 12/11/18 Francisca Jensen MD [address] [place] [address] Referring General Surgery 04/20/22 Francisca Jensen MD [address] [place] [address] Home Care Provider General Surgery 04/20/22 Cuff Stitcher Relationship Specialty Start Date End Date Clifford Estes MD [address] [place] [address] PCP - General Family Medicine 12/11/18 Francisca Jensen MD [address] [place] [address] Referring General Surgery 04/20/22 Francisca Jensen MD [address] [place] [address] Home Care Provider General Surgery 04/20/22 Cuff Stitcher Relationship Specialty Start Date End Date Clifford Estes MD [address] [place], [place] 572901 PCP - General Family Medicine 12/11/18 Francisca Jensen MD [address] [place] [address] Referring General Surgery 04/20/22 Francisca Jensen MD [address] [place] [address] Home Care Provider General Surgery 04/20/22 Susanne Sagastume MD Instructor Dancing 06/12/24 07/11/24 Cuff Stitcher Relationship Specialty Start Date End Date Clifford Estes MD [address] [place] [address] PCP - General Family Medicine 12/11/18 Francisca Jensen MD [address] [place] [address] Referring General Surgery 04/20/22 Francisca Jensen MD [address] [place] [address] Home Care Provider General Surgery 04/20/22 Susanne Sagastume MD Instructor Dancing 06/12/24 07/11/24 Cuff Stitcher Relationship Specialty Start Date End Date Clifford Estes MD [address] [place], [place] 132071 PCP - General Family Medicine 12/11/18 Susanne Sagastume MD Instructor Dancing 06/12/24 07/13/24 Clifford Estes MD [address] [place] [address] Referring Family Medicine 06/15/24 Clifford Estes MD [address] [place], [place] 486341 Home Care Provider Family Medicine 06/15/24 Wero Uribe, RN [address] [place] [address] Balancer Post Acute Care 06/15/24 Cuff Stitcher Relationship Specialty Start Date End Date Clifford Estes MD [address] [place] [address] PCP - General Family Medicine 12/11/18 Francisca Jensen MD [address] [place], [place] 3126495 Referring General Surgery 04/20/22 06/14/24 Francisca Jensen MD [address] [place] [address] Home Care Provider General Surgery 04/20/22 06/14/24 Susanne Sagastume MD Instructor Dancing 06/12/24 07/13/24 Clifford Estes MD [address] [place] [address] Referring Family Medicine 06/15/24 Clifford Estes MD [address] [place] [address] Home Care Provider Family Medicine 06/15/24 Wero Uribe, NEIL [address] [place] [address] Balancer Post Acute Care 06/15/24 Cuff Stitcher Relationship Specialty Start Date End Date Clifford Estes MD [address] [place] [address] PCP - General Family Medicine 12/11/18 Susanne Sagastume MD Instructor Dancing 06/12/24 07/13/24 Clifford Estes MD [address] [place] [address] Referring Family Medicine 06/15/24 Clifford Estes MD [address] [place] [address] Home Care Provider Family Medicine 06/15/24 Wero Uribe RN [address] [place] [address] Balancer Post Acute Care 06/15/24 Cuff Stitcher Relationship Specialty Start Date End Date Clifford Estes MD [address] [place] [address] PCP - General Family Medicine 12/11/18 Susanne Sagastume MD Instructor Dancing 06/12/24 07/13/24 Clifford Estes MD [address] [place] [address] Referring Family Medicine 06/15/24 Clifford Estes MD [address] [place] [address] Home Care Provider Family Medicine 06/15/24 Wero Uribe, RN [address] [place], [place] [phone] Balancer Post Acute Care 06/15/24 Cuff Stitcher Relationship Specialty Start Date End Date Clifford Estes MD [address] [place] [address] PCP - General Family Medicine 12/11/18 Susanne Sagastume MD Instructor Dancing 06/12/24 07/13/24 Clifford Estes MD [address] [place] [address] Referring Family Medicine 06/15/24 Clifford Estes MD [address] [place] [address] Home Care Provider Family Medicine 06/15/24 Wero Uribe, NEIL [address] [place] [address] Balancer Post Acute Care 06/15/24 Cuff Stitcher Relationship Specialty Start Date End Date Clifford Estes MD [address] [place] [address] PCP - General Family Medicine 12/11/18 Susanne Sagastume MD Instructor Dancing 06/12/24 07/13/24 Clifford Estes MD [address] [place] [address] Referring Family Medicine 06/15/24 Clifford Estes MD [address] [place] [address] Home Care Provider Family Medicine 06/15/24 Wero Uribe RN [address] [place] [address] Balancer Post Acute Care 06/15/24 Cuff Stitcher Relationship Specialty Start Date End Date Clifford Estes MD [address] [place] [address] PCP - General Family Medicine 12/11/18 ProviderSusanne MD Instructor Dancing 06/12/24 07/13/24 Clifford Estes MD [address] [place] [address] Referring Family Medicine 06/15/24 Clifford Estes MD [address] [place] [address] Home Care Provider Family Medicine 06/15/24 Wero Uribe RN [address] [place] [address] Balancer Post Acute Care 06/15/24 Cuff Stitcher Relationship Specialty Start Date End Date Clifford Estes MD [address] [place] [address] PCP - General Family Medicine 12/11/18 ProviderSusanne MD Instructor Dancing 06/12/24 07/13/24 Clifford Estes MD [address] [place] [address] Referring Family Medicine 06/15/24 Clifford Estes MD [address] [facility] [place] [address] Home Care Provider Family Medicine 06/15/24 Wero Uribe RN [address] [place] [address] Balancer Post Acute Care 06/15/24 Cuff Stitcher Relationship Specialty Start Date End Date Clifford Estes MD [address] [facility] [place] [address] PCP - General Family Medicine 12/11/18 Clifford Estes MD [address] [place] [address] Referring Family Medicine 06/15/24 Clifford Estes MD [address] [place] [address] Home Care Provider Family Medicine 06/15/24 Wero Uribe RN [address] [place] [address] Balancer Post Acute Care 06/15/24 Cuff Stitcher Relationship Specialty Start Date End Date Clifford Estes MD [address] [place] [address] PCP - General Family Medicine 12/11/18 Clifford Estes MD [address] [facility] [place] [address] Referring Family Medicine 06/15/24 Clifford Estes MD [address] [place] [address] Home Care Provider Family Medicine 06/15/24 Wero Uribe RN [address] [place] [address] Balancer Post Acute Care 06/15/24 Cuff Stitcher Relationship Specialty Start Date End Date Clifford Estes MD [address] [place] [address] PCP - General Family Medicine 12/11/18 Clifford Estes MD [address] [place] [address] Referring Family Medicine 06/15/24 Clifford Estes MD [address] [place] [address] Home Care Provider Family Medicine 06/15/24 Wero Uribe, NEIL [address] [place], [place] [phone] Balancer Post Acute Care 06/15/24 Cuff Stitcher Relationship Specialty Start Date End Date Clifford Estes MD [address] [place] [address] PCP - General Family Medicine 12/11/18 Clifford Estes MD [address] [place] [address] Referring Family Medicine 06/15/24 Clifford Estes MD [address] [place] [address] Home Care Provider Family Medicine 06/15/24 Wero Uribe RN [address] [place], [place] [phone] Balancer Post Acute Care 06/15/24 Cuff Stitcher Relationship Specialty Start Date End Date Clifford Estes MD [address] [place] [address] PCP - General Family Medicine 12/11/18 Clifford Estes MD [address] [facility] [place] [address] Referring Family Medicine 06/15/24 Clifford Estes MD [address] [facility] [place] [address] Home Care Provider Family Medicine 06/15/24 Wero Uribe, NEIL [address] [place] [address] Balancer Post Acute Care 06/15/24 Cuff Stitcher Relationship Specialty Start Date End Date Clifford Estes MD [address] [place] [address] PCP - General Family Medicine 12/11/18 Clifford Estes MD [address] [place] [address] Referring Family Medicine 06/15/24 Clifford Estes MD [address] [place] [address] Home Care Provider Family Medicine 06/15/24 Wero Uribe RN [address] [place] [address] Balancer Post Acute Care 06/15/24 Cuff Stitcher Relationship Specialty Start Date End Date Clifford Estes MD [address] [place] [address] PCP - General Family Medicine 12/11/18 Clifford Estes MD [address] [place] [address] Referring Family Medicine 06/15/24 Clifford Estes MD [address] [facility] [place] [address] Home Care Provider Family Medicine 06/15/24 Wero Uribe RN [address] [place] [address] Balancer Post Acute Care 06/15/24 Cuff Stitcher Relationship Specialty Start Date End Date Clifford Estes MD [address] [place] [address] PCP - General Family Medicine 12/11/18 Clifford Estes MD [address] [place] [address] Referring Family Medicine 06/15/24 Clifford Estes MD [address] [place] [address] Home Care Provider Family Medicine 06/15/24 Wero Uribe RN [address] [place] [address] Balancer Post Acute Care 06/15/24 Cuff Stitcher Relationship Specialty Start Date End Date Clifford Estes MD [address] [place] [address] PCP - General Family Medicine 12/11/18 Clifford Estes MD [address] [place] [address] Referring Family Medicine 06/15/24 Clifford Estes MD [address] [place] [address] Home Care Provider Family Medicine 06/15/24 Wero Uribe RN [address] [place] [address] Balancer Post Acute Care 06/15/24 Yvette Gao APRN.[employer] GAMES HAND FINISHER [address] [place] [address] Instructor Dancing Family Medicine 10/22/24 Kyleigh Casas APRN.TOYS AND GAMES HAND FINISHER [address] [place] [address] Instructor Dancing Family Medicine 10/22/24 Cuff Stitcher Relationship Specialty Start Date End Date Clifford Estes MD [address] [place] [address] PCP - General Family Medicine 12/11/18 Clifford Estes MD [address] [place] [address] Referring Family Medicine 06/15/24 Clifford Estes MD [address] [place] [address] Home Care Provider Family Medicine 06/15/24 Wero Uribe, RN [address] [place] [address] Balancer Post Acute Care 06/15/24 Yvette Gao APRN.TOYS [employer] GAMES HAND FINISHER [address] [place] [address] Instructor Dancing Family Medicine 10/22/24 Kyleigh Casas APRN.TOYS AND GAMES HAND FINISHER [address] [facility] [place] [address] Instructor Dancing Family Medicine 10/22/24 Cuff Stitcher Relationship Specialty Start Date End Date Clifford Estes MD [address] [place] [address] PCP - General Family Medicine 12/11/18 Clifford Estes MD [address] [place] [address] Referring Family Medicine 06/15/24 Clifford Estes MD [address] [place] [address] Home Care Provider Family Medicine 06/15/24 Wero Uribe, NEIL [address] [place] [address] Balancer Post Acute Care 06/15/24 Yvette Gao, SENIOR BUSINESS MANAGER.TO[employer] GAMES HAND FINISHER [address] [place] [address] Instructor Dancing Family Medicine 10/22/24 Kyleigh Casas, SENIOR BUSINESS MANAGER.TO[employer]AMES HAND FINISHER [address] [place] [address] Instructor Dancing Family Medicine 10/22/24 Cuff Stitcher Relationship Specialty Start Date End Date Clifford Estes MD [address] [place] [address] PCP - General Family Medicine 12/11/18 Clifford Estes MD [address] [place] [address] Referring Family Medicine 06/15/24 Clifford Estes MD [address] [place] [address] Home Care Provider Family Medicine 06/15/24 Wero Uribe RN [address] [place] [address] Balancer Post Acute Care 06/15/24 Yvette Gao APRN.TO[employer] GAMES HAND FINISHER [address] [place], [place] 398[address] Instructor Dancing Family [facility] 10/22/24 Kyleigh Casas APRN.TOYS AND GAMES HAND FINISHER [address] [place] [address] Instructor Dancing Family [facility] 10/22/24 Cuff Stitcher Relationship Specialty Start Date End Date Clifford Estes MD [address] [place] [address] PCP - General Family Medicine 12/11/18 Clifford Estes MD [address] [place] [address] Referring Family Medicine 06/15/24 Clifford Estes MD [address] [place] [address] Home Care Provider Family Medicine 06/15/24 Wero Uribe, RN [address] [place], [place] [phone] Balancer Post Acute Care 06/15/24 Yvette Gao APRN.[employer] GAMES HAND FINISHER [address] [place] [address] Instructor Dancing Family [facility] 10/22/24 Kyleigh Casas APRN.TOYS [employer] GAMES HAND FINISHER [address] [place] [address] Instructor Dancing Family [facility] 10/22/24 Cuff Stitcher Relationship Specialty Start Date End Date Clifford Estes MD [address] [place], [place] 456281 PCP - General Family Medicine 12/11/18 Clifford Estes MD [address] [place] [address] Referring Family Medicine 06/15/24 Clifford Estes MD [address] [place] [address] Home Care Provider Family Medicine 06/15/24 Wero Uribe, NEIL [address] [place] [address] Balancer Post Acute Care 06/15/24 Yvtete Gao APRN.[employer] GAMES HAND FINISHER [address] [place] [address] Instructor Dancing Family Medicine 10/22/24 Kyleigh Casas SENIOR BUSINESS MANAGER.TO[employer] GAMES HAND FINISHER [address] [place] [address] Instructor Dancing Family Medicine 10/22/24 Cuff Stitcher Relationship Specialty Start Date End Date Clifford Estes MD [address] [place] [address] PCP - General Family Medicine 12/11/18 Clifford Estes MD [address] [place] [address] Referring Family Medicine 06/15/24 Clifford Estes MD [address] [place] [address] Home Care Provider Family Medicine 06/15/24 Wero Uribe, NEIL [address] [place] [address] Balancer Post Acute Care 06/15/24 Yvette Gao APRN.TOYS AND GAMES HAND FINISHER [address] [facility] [place] [address] Instructor Dancing Family [facility] 10/22/24 Kyleigh Casas APRN.TOYS AND GAMES HAND FINISHER [address] [place] [address] Instructor Dancing Family [facility] 10/22/24 Cuff Stitcher Relationship Specialty Start Date End Date Clifford Estes MD [address] [place], [place] 550351 PCP - General Family Medicine 12/11/18 Clifford Estes MD [address] [place] [address] Referring Family Medicine 06/15/24 Clifford Estes MD [address] [place] [address] Home Care Provider Family Medicine 06/15/24 Wero Uribe, RN [address] [place] [address] Balancer Post Acute Care 06/15/24 Yvette Gao APRN.TOYS AND GAMES HAND FINISHER [address] [facility] [place] [address] Instructor Dancing Family [facility] 10/22/24 Kyleigh Casas APRN.TOYS AND GAMES HAND FINISHER [address] [facility] [place] [address] Instructor Dancing Family [facility] 10/22/24 Cuff Stitcher Relationship Specialty Start Date End Date Clifford Estes MD [address] [place] [address] PCP - General Family Medicine 12/11/18 Clifford Estes MD [address] [place] [address] Referring Family Medicine 06/15/24 Clifford Estes MD [address] [place] [address] Home Care Provider Family Medicine 06/15/24 Wero Uribe, NEIL [address] [place] [address] Balancer Post Acute Care 06/15/24 Yvette Gao APRN.TOYS [employer] GAMES HAND FINISHER [address] [place] [address] Instructor Dancing Family Medicine 10/22/24 Kyleigh Cassa APRN.TO[employer] GAMES HAND FINISHER [address] [place] [address] Instructor Dancing Family Medicine 10/22/24 Cuff Stitcher Relationship Specialty Start Date End Date Clifford Estes MD [address] [place] [address] PCP - General Family Medicine 12/11/18 Clifford Estes MD [address] [place] [address] Referring Family Medicine 06/15/24 Clifford Estes MD [address] [place] [address] Home Care Provider Family Medicine 06/15/24 Wero Uribe, NEIL [address] [place] [address] Balancer Post Acute Care 06/15/24 Yvette Gao APRN.TOYS AND GAMES HAND FINISHER [address] [facility] [place] [address] Instructor Dancing Family Medicine 10/22/24 Kyleigh Casas APRN.TOYS AND GAMES HAND FINISHER [address] [facility] [place] [address] Instructor Dancing Family Medicine 10/22/24 Cuff Stitcher Relationship Specialty Start Date End Date Clifford Estes MD [address] [place], [place] [address] PCP - General Family Medicine 12/11/18 Clifford Estes MD [address] [place] [address] Referring Family Medicine 06/15/24 Clifford Estes MD [address] [facility] [place] [address] Home Care Provider Family Medicine 06/15/24 Wero Uribe, RN [address] [place] [address] Balancer Post Acute Care 06/15/24 Yvette Gao APRN.TOYS AND GAMES HAND FINISHER [address] [facility] [place] [address] Instructor Dancing Family [facility] 10/22/24 Kyleigh Casas APRN.TOYS AND GAMES HAND FINISHER [address] [facility] [place] [address] Instructor Dancing Family [facility] 10/22/24 Cuff Stitcher Relationship Specialty Start Date End Date Clifford Estes MD [address] [place] [address] PCP - General Family Medicine 12/11/18 Clifford Estes MD [address] [place] [address] Referring Family Medicine 06/15/24 Clifford Estes MD [address] [place] [address] Home Care Provider Family Medicine 06/15/24 Wero Uribe, NEIL [address] [place], [place] [id number] Balancer Post Acute Care 06/15/24 Yvette Gao APRN.TOYS AND GAMES HAND FINISHER [address] [place] [address] Instructor Dancing Family Medicine 10/22/24 Kyleigh Casas APRN.TOYS AND GAMES HAND FINISHER [address] [place] [address] Instructor Dancing Family Medicine 10/22/24 Cuff Stitcher Relationship Specialty Start Date End Date Clifford Estes MD [address] [place] [address] PCP - General Family Medicine 12/11/18 Clifford Estes MD [address] [place] [address] Referring Family Medicine 06/15/24 Clifford Estes MD [address] [place] [address] Home Care Provider Family Medicine 06/15/24 Wero Uribe RN [address] [place] [address] Balancer Post Acute Care 06/15/24 Yvette Gao, SENIOR BUSINESS MANAGER.TOYS AND GAMES HAND FINISHER [address] [place] [address] Instructor Dancing Family [facility] 10/22/24 Kyleigh Casas APRN.TOYS AND GAMES HAND FINISHER [address] [place] [address] Instructor Dancing Family Medicine 10/22/24 Cuff Stitcher Relationship Specialty Start Date End Date Clifford Estes MD [address] [facility] [place] [address] PCP - General Family Medicine 12/11/18 Clifford Estes MD [address] [place] [address] Referring Family Medicine 06/15/24 Clifford Estes MD [address] [facility] [place] [address] Home Care Provider Family Medicine 06/15/24 Wero Uribe, RN [address] [place] [address] Balancer Post Acute Care 06/15/24 Yvette Gao APRN.TOYS AND GAMES HAND FINISHER [address] [facility] [place] [address] Instructor Dancing Family [facility] 10/22/24 Kyleigh Casas APRN.TOYS AND GAMES HAND FINISHER [address] [facility] [place] [address] Instructor Dancing Family [facility] 10/22/24 Cuff Stitcher Relationship Specialty Start Date End Date Clifford Estes MD [address] [facility] [place] [address] PCP - General Family Medicine 12/11/18 Clifford Estes MD [address] [facility] [place] [address] Referring Family Medicine 06/15/24 Clifford Estes MD [address] [facility] [place] [address] Home Care Provider Family Medicine 06/15/24 Wero Uribe, NEIL [address] [place], [place] [id number] Balancer Post Acute Care 06/15/24 Yvette Gao APRN.TOYS AND GAMES HAND FINISHER [address] [facility] [place] [address] Instructor Dancing Family Medicine 10/22/24 Kyleigh Casas APRN.TOYS AND GAMES HAND FINISHER [address] [facility] [place] [address] Instructor Dancing Family Medicine 10/22/24 Cuff Stitcher Relationship Specialty Start Date End Date Clifford Estes MD [address] [facility] [place] [address] PCP - General Family Medicine 12/11/18 Clifford Estes MD [address] [facility] [place] [address] Referring Family Medicine 06/15/24 Clifford Estes MD [address] [facility] [place] [address] Home Care Provider Family Medicine 06/15/24 Wero Uribe, NEIL [address] [place], [place] [phone] Balancer Post Acute Care 06/15/24 Yvette Gao APRN.TOYS AND GAMES HAND FINISHER [address] [place] [address] [facility]24 Kyleigh Casas APRN.TOYS AND GAMES HAND FINISHER [address] [place], [place] [address] [facility] 10/22/24 Cuff Stitcher Relationship Specialty Start Date End Date Clifford Estes MD [address] [place], [place] [address] PCP - General Family Medicine 12/11/18 Clifford Estes MD [address] [place], [place] [address] Referring Family Medicine 06/15/24 Clifford Estes MD [address] [place], [place] [address] Home Care Provider Family Medicine 06/15/24 Wero Uribe, RN [address] [place] [address] Balancer Post Acute Care 06/15/24 Yvette Gao APRN.TOYS AND GAMES HAND FINISHER [address] [place] [address] [facility] 10/22/24 Kyleigh Casas APRN.TOYS AND GAMES HAND FINISHER [address] [place], [place] [address] [facility] 10/22/24 Goals (unrecognized section and content) Goals may be documented in a n alternate sectionGoals may be documented in an alternate sectionGoals may be documented in an alternate sectionGoals may be documented in an alternate sectionGoals may be documented in an alternate sectionGoals may be documented in an alternate sectionGoals may be documented in an alternate sectionGoals may be documented in an alternate section (unrecognized sect ion and content) No Status Records FoundNo Status Records FoundNo Status Records FoundNo Status Records Found INFORMATION SOURCE (unrecogn ized section and content) DATE CREATED AUTHOR 12/23/2022 [facility] DATE CREATED AUTHOR AUTHOR'S ORGANIZ ATION 11/24/2024 [facility] DATE CREATED AUTHOR AUTHOR'S ORGANIZ ATION 11/29/2024 [facility] DATE CREATED AUTHOR AUTHOR'S ORGANIZ ATION 09/08/2025 [facility] FOR RECORDS PERTAINING TO PATIENTS WHO ARE [...] BE BASED ON THE PRIMARY CLINICAL RECORDS. [employer] provides no warranty or guarantee of the accuracy or completeness of information in this document.
[2025-09-21 23:35] LABS: Mucous, Urine 0 SEEN /hpf (<or=2+); Squamous Epithelial Cells - UA 0 SEEN /hpf (0-5)
[2025-09-21 23:36] LABS: Color, Urine Yellow (Yellow); Glucose, Dipstick Normal (Normal); Ketone-Dipstick 5 mg/dl (Negative); Leukocyte Esterase-Dipstick 500 /ul (Negative); Nitrite-Dipstick Positive (Negative); Occult Blood-Urine 150 /ul (Negative); Protein-Dipstick 30 mg/dl (Negative); Specific Gravity, Urine 1.010 (1.002-1.030); Urine Bilirubin Dipstick Negative (Negative)
[2025-09-21 23:37] LABS: Anion Gap 12 (5-15); BUN 11 mg/dL (4-19); BUN/Creat Ratio 15.2 RATIO (10-20); Calcium,Total 8.9 mg/dL (7.6-11.0); Carbon Dioxide 22.0 mmol/L (21.0-32.0); Chloride 93 mmol/L (98-108); Estimated Creatinine Clearance 86.61 ml/min (50-250); Glucose 104 mg/dL (70-99); Potassium 4.4 mmol/L (3.3-5.1)
[2025-09-21] MEDS: 0.9% Normal Saline (1000mL) 1,000 ML 999 ML IV (23:50)
[2025-09-21 23:55] LABS: Red Blood Cells-Urine 0-5 SEEN /hpf (0-5)
[2025-09-22 00:31] VITALS: BP 150/91; PULSE 72; O2SAT 99
[2025-09-22 01:34] VITALS: BP 144/92; PULSE 80; RESP 16; TEMP 36.7; O2SAT 99
== END 2025-09-22 01:52 | disposition home or self-care (01) ==
PROVIDERS: Emergency Provider Specialist/Technologist Athletic Trainer; PCP Family Medicine; Visit Provider Specialist/Technologist Athletic Trainer
DX: T83.89XA Other specified complication of genitourinary prosthetic devices, implants and grafts, initial encounter (principal); N39.0 Urinary tract infection, site not specified; Z86.16 Personal history of COVID-19; X58.XXXA Exposure to other specified factors, initial encounter
CPT/HCPCS: 51702; 80048; 81001; 96360; 99285

== ENCOUNTER 2025-11-04 07:17 | Inpatient (IN) | payer MEDICARE, MEDICAID, SELFPAY ==
[2025-11-04] VITALS (26 sets, daily range): BP systolic 82–111; BP diastolic 49–90; PULSE 79–118; RESP 14–29; TEMP 36.6–37.8; O2SAT 92–100; BMI 22.3; BMI 23.1
--- NOTE | 2025-11-04 07:29 | CT_ITS ---
PROCEDURE: BRAIN/HEAD WITHOUT CONTRAST 11/04/2025 REASON FOR EXAM: AMS TECHNIQUE: Procedure Code: CTBR Modality: CT Procedure: BRAIN/HEAD WITHOUT CONTRAST Coronal and Sagittal reconstruction series were provided. One or more dose reduction techniques were used (e.g., Automated exposure control, adjustment of the mA and/or kV according to patient size, use of iterative reconstruction technique. RADIATION DOSE SUMMARY: CTDlvol: 44.99+ 44.99 mGy DLP: 897.4+ 897.4 mGycm COMPARISON: None available. FINDINGS: Brain: There is no acute large territorial infarct, intracranial hemorrhage, midline shift or mass effect. There are atherosclerotic vascular calcifications involving the bilateral carotid siphons. WASTE OIL PUMPER shunt catheter from the right occipital 2 left lateral ventricular approaches noted. The sella and pineal gland regions appear unremarkable. Evaluation of the brainstem is limited due to beam hardening artifact. There is no evidence of cerebellar tonsillar herniation. Ventricles: There is no acute hydrocephalus. Basilar cisterns are patent. Paranasal sinuses: Mucosal thickening of the maxillary and ethmoid sinuses with air-fluid level present in the right sphenoid sinus. Mastoid air cells: Well-aerated. Calvarium: The bony calvarium is intact. Orbits: The bilateral globes are symmetric, without retrobulbar compressive mass lesion or hemorrhage. CT/Brain/Head without Contrast IMPRESSION: 1. No evidence of acute intracranial hemorrhage, hydrocephalus, or herniation. 2. Right occipital to left lateral ventricle WASTE OIL PUMPER shunt access. 3. Maxillary, ethmoid, and sphenoid sinus disease. Reading Location: [id number]
--- NOTE | 2025-11-04 07:29 | EKG12_ITS ---
Test Reason : Blood Pressure : */* mmHG Vent. Rate : 93 BPM Atrial Rate : 93 BPM P-R Int : 150 ms QRS Dur : 96 ms QT Int : 376 ms P-R-T Axes : 64 35 38 degrees QTcB Int : 467 ms Normal sinus rhythm Increased R/S ratio in V1, consider early transition or posterior infarct Abnormal ECG Confirmed by Demetrius Henderson ([id number]), editor news ARTHUR DAMON ([id number]) on 11/05/2025 11:02:13 AM Also confirmed by Demetrius Henderson ([id number]), editor news ARTHUR DAMON ([id number]) on 11/06/2025 11:11:47 AM Referred By: Confirmed By: Demetrius Henderson
--- NOTE | 2025-11-04 07:31 | CT_ITS ---
EXAM: ABDOMEN/PELVIS WITHOUT CONT CLINICAL HISTORY: CONSTIPATION 59-year-old with abdominal pain. COMPARISON: None. TECHNIQUE: Helical CT images of the abdomen and pelvis were performed utilizing routine protocol without intravenous contrast material. Multiplanar reformations were obtained. Dose reduction techniques were used including intermediate exposure control (AEC),iterative reconstruction technique, and/or mA and/or KV dose adjustments based on patient's size. Total DLP: 572.5 mGy per cm. FINDINGS: Motion degradation of the lung bases with atelectasis. Hiatal hernia. Abdomen/pelvis: ROLLER BEARING INSPECTOR shunt tubing is noted. Attenuation artifact from lower extremities and [id number] during scan. The liver, gallbladder, adrenals, spleen, and pancreas are grossly normal. Moderate left hydronephrosis with perinephric stranding. Left parapelvic cysts are suggested. Punctate left nephrolithiasis. The bladder is contracted containing a Bowman catheter with coarse posterior bladder calcifications. Mild colonic stool burden with gaseous distention of the transverse and proximal descending segment. The appendix was not definitively visualized on this examination. Shotty mesenteric lymph nodes. No significant free fluid in the abdomen and pelvis. Degenerative changes of the spine, hips, and pelvis with arthrosis of the left hip and near-complete loss of joint space. CT/Abdomen/Pelvis without Cont IMPRESSION: 1. Thickened bladder wall with coarse bladder calcifications as well as modera te left hydronephrosis and probable peripelvic cysts. 2. Colonic gaseous distention with mild colonic stool burden. The appendix wa s not definitively identified on this examination. 3. Hiatal hernia. 4. ROLLER BEARING INSPECTOR shunt tubing is noted. Reading Location: [id number]
--- NOTE | 2025-11-04 07:40 | EX.ED.DYSGE1 ---
HPI History of Present Illness Chief Complaint: General Illness Narrative Narrative: Chief complaint and HPI: 59-year-old male with past medical history of hydrocephalus, chronic indwelling Bowman catheter, HTN, seizures presents with caregiver for evaluation of altered mental status, weakness, constipation, decreased urine output, and fevers. History unable to be obtained by the patient due to altered mental status. Caregiver states that yesterday the patient had constipation. She states that he was at his normal mentation until this morning when he was more altered and lethargic. She states she also noticed decreased urine output. Patient does have his Bowman catheter changed on Tuesday. On presentation, patient is altered with a GCS 10 however 9 at times. He will not answer any of my questions. Review of systems: See HPI Medications: As listed on the chart Allergies: As listed on the chart PFSH: Per chart Vital signs: As listed on the chart. Reviewed. Physical exam: Gen: Lethargic, unable to assess orientation as he is currently nonverbal, unwell appearing Head: Normocephalic, atraumatic Eyes: Opens eyes to verbal command, no sclera icterus, conjunctiva clear, PERRL ENT: TMs clear BL, dry mucous membranes, posterior oropharynx unremarkable, uvula midline Neck: Trachea midline, moves neck intermittently- does not appear tender CV: Tachycardic, regular rhythm, no murmurs, no peripheral edema Resp: Lungs CTA BL, no w/r/c GI: Abd soft, non-distended, does not appear tender, no r/r/g : Bowman catheter with yellow clear urine. Circumcised penis. No penile discharge or bleeding. No penile or testicular swelling. Normal lie and position of the testicles. 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 Leukocytosis Acute hyponatremia Acute UTI Complete obstruction of small intestine COVID-19 Complicated UTI (urinary tract infection) Hydrocephalus Hyponatremia Chronic indwelling Bowman catheter Chronic intestinal pseudo-obstruction BPH (benign prostatic hyperplasia) Chronic hyponatremia Normal pressure hydrocephalus Bladder stones Bladder diverticulum Inguinal hernia Catheter-associated urinary tract infection Hyponatremia Hypertension Seizures Gastroparesis Ileus Chronic indwelling Bowman catheter Hydrocephalus History of urinary retention Home Medications ?Medication ?Instructions ?Recorded ?Last Taken ?Type baclofen 5 mg tablet 5 mg PO TID MUSCLE SPASMS 07/21/22 02/20/23 History linaclotide 290 mcg capsule 290 mcg PO DAILY IRRITABLE BOWELS 08/09/23 Unknown History (Linzess) prucalopride 2 mg tablet 2 mg PO DAILY CHRONIC CONSTIPATION 08/09/23 Unknown History (Motegrity) metoclopramide HCl 5 mg tablet 5 mg PO Q6H PRN nausea and vomiting 09/20/23 Unknown History (Reglan) bisacodyl 10 mg rectal suppository 10 mg AL DAILY PRN Constipation #0 09/22/23 Unknown Rx ea cefdinir 300 mg capsule 300 mg PO BID #14 caps 09/22/25 Unknown Rx Allergy/AdvReac Type Severity Reaction Status Date / Time Iodinated Contrast Media Allergy Anaphylaxis Verified 11/04/25 07:20 (Iodinated Contrast Media - IV Dye) nitrofurantoin AdvReac Upset Verified 11/04/25 07:20 Stomach Family History Father Heart disease Kidney stones Prostate disease Hypertension Brother Kidney stones Mother Cancer Hypertension Peptic ulcer disease Surgical History DISTRICT PLANT SUPERVISOR (ventriculoperitoneal) shunt status S/P release of urethral stricture S/P DISTRICT PLANT SUPERVISOR shunt Social History household members: family Smoking Status: Never smoker alcohol intake: never substance use type: does not use EXAM Physical Exam Const Vital Signs: 11/04/25 07:18 11/04/25 07:18 11/04/25 07:22 Temperature 98.7 F 98.7 F Temperature Source Oral Oral Pulse Rate 103 H 103 H 101 H Respiratory Rate 14 14 16 Respiratory Effort Respiratory Pattern Blood Pressure 82/65 L 83/66 L 88/62 L Blood Pressure Mean 70 71 70 Pulse Ox 96 97 97 Oxygen Delivery Method Room Air Room Air Room Air 11/04/25 07:22 11/04/25 07:54 11/04/25 08:22 Temperature Temperature Source Pulse Rate 102 H 90 Respiratory Rate 14 16 Respiratory Effort Normal Respiratory Pattern Normal Blood Pressure 100/60 96/65 Blood Pressure Mean 73 75 Pulse Ox 100 97 Oxygen Delivery Method Room Air 11/04/25 09:00 11/04/25 09:36 11/04/25 09:56 Temperature Temperature Source Pulse Rate 98 96 79 Respiratory Rate 16 14 16 Respiratory Effort Respiratory Pattern Blood Pressure 85/72 L 90/69 99/68 Blood Pressure Mean 76 76 78 Pulse Ox 100 100 99 Oxygen Delivery Method Room Air Room Air 11/04/25 10:00 Temperature Temperature Source Pulse Rate 101 H Respiratory Rate 16 Respiratory Effort Respiratory Pattern Blood Pressure 96/71 Blood Pressure Mean 79 Pulse Ox 99 Oxygen Delivery Method Room Air MDM MDM MDM Narrative Medical decision making narrative: 59-year-old male with past medical history of hydrocephalus, chronic indwelling Bowman catheter, HTN, seizures presents with caregiver for evaluation of altered mental status, weakness, constipation, decreased urine output, and fevers. History unable to be obtained by the patient due to altered mental status. Caregiver states that yesterday the patient had constipation. She states that he was at his normal mentation until this morning when he was more altered and lethargic. She states she also noticed decreased urine output. On presentation, patient is altered with a GCS 10 however 9 at times. He will not answer any of my questions. He is a full code. Will monitor mental status as patient may require intubation for airway protection. He is unwell appearing. Tachycardic and hypotensive. Concern is for sepsis. Patient made a sepsis alert. 30 cc/kg bolus ordered. Zosyn and vancomycin for empiric coverage. Differential diagnosis includes but is not limited to UTI, viral illness, pneumonia, bacteremia, intra-abdominal pathology, intracranial abnormality. Sepsis workup ordered including CT head and CTA abdomen and pelvis without contrast given patient has anaphylaxis to contrast. Patient's blood pressure and mental status is slightly improving with fluids. Patient now intermittently saying yes or no to questions. ABG without acidosis. CBC with leukocytosis of 25.6. No anemia. Patient already received antibiotics. INR unremarkable. CMP with TRESA. Patient has hyponatremia at 123 and hypokalemia of 3.2. Creatinine 1.63. No transaminitis. Lactic acid elevated at 2.9. Patient already receiving 30 cc/kg bolus. Troponin elevated at 35. Patient states no when you ask him if he is in any pain. CT of the head negative for any acute intracranial abnormality. Right occipital to left lateral ventricular DISTRICT PLANT SUPERVISOR shunt access. Mild sinus disease. COVID, flu, RSV negative. CT abdomen pelvis showed thickened bladder wall with coarse bladder calcifications as well as moderate left hydronephrosis and probable peripelvic cyst. Colonic gaseous distention with mild colonic stool burden. Hiatal hernia. DISTRICT PLANT SUPERVISOR shunt tubing. UA positive for UTI. Urine culture sent. Patient already given antibiotics. On chart review, patient has grown out multiple bacteria in the past. Have been sensitive to the above antibiotics. Patient will warrant admission for sepsis secondary to UTI. On reevaluation, his blood pressure is improved. Hospitalist consulted. They accepted admission. Family was updated of all results and the plan. They confirmed understanding. 30 minutes of critical care time utilized in managing the patient. This is due to high probability of and deterioration of the patient based on the patient's condition and excludes any separately billable procedures. EKG: Interpreted by me/EM physician: EKG shows normal sinus rhythm. Heart rate 93. No QTc prolongation. Diagnostic: Interpreted by me/EM physician: Chest x-ray without pneumonia, effusion, pneumothorax, cardiomegaly. Radiology in agreement. Per radiology, DISTRICT PLANT SUPERVISOR shunt tubing on the right. Moderate amount of air within the bowel loops. Present on prior study. Impression: 1. Sepsis secondary to UTI 2. Metabolic encephalopathy secondary to #1 3. TRESA with dehydration 4. Hyponatremia 5. Hypokalemia 6. Lactic acidosis Lab Data Labs: Laboratory Results - last 24 hr 11/04/25 11/04/25 11/04/25 07:30 09:00 09:35 WBC 25.6 H RBC 5.00 Hgb 14.7 Hct 42.5 MCV 85.0 MCH 29.4 MCHC 34.6 RDW Std Deviation 39.1 RDW Coeff of Frieda 12.7 Plt Count 242 MPV 9.8 Immature Gran % (Auto) Not Reportable Neut % (Auto) Not Reportable Lymph % (Auto) Not Reportable [place] % (Auto) Not Reportable Eos % (Auto) Not Reportable Baso % (Auto) Not Reportable Absolute Neuts (auto) 22.0 H Absolute Lymphs (auto) 0.77 L Total Counted 100 Neutrophils % (Manual) 73 H Band Neutrophils % 13 H Lymphocytes % (Manual) 3 L Monocytes % (Manual) 5 Metamyelocytes % 6 H Nucleated RBC % Not Reportable Diff Path Review May foll Platelet Estimate ADEQUATE PT 16.5 H INR 1.3 APTT 31.2 Sodium 123 L Potassium 3.2 L Chloride 86 L Carbon Dioxide 23.2 Anion Gap 14 BUN 16 Creatinine 1.63 H Estim Creat Clear Calc 40.24 L Est GFR (MDRD) Non-Af 49 L BUN/Creatinine Ratio 9.9 L Glucose 144 H Lactic Acid 2.9 H* Calcium 8.7 Total Bilirubin 0.56 AST 29 ALT 20 Alkaline Phosphatase 68 Troponin T High Sens 35 H Troponin T Hi Sens 2 Hr 19 Total Protein 6.6 Albumin 3.7 Globulin 2.9 Albumin/Globulin Ratio 1.3 Urine Color Yellow Urine Clarity Cloudy Urine pH 8.0 Ur Specific [place] 1.010 Urine Protein 100 H Urine Glucose (UA) Normal Urine Ketones Negative Urine Occult Blood 25 H Urine Nitrite Positive H Urine Bilirubin Negative Urine Urobilinogen Normal Ur Leukocyte Esterase 500 H Urine RBC 0-5 SEEN Urine WBC 5-10 SEEN Ur Squamous Epith Cells 0 SEEN Amorphous Sediment 1+ Urine Bacteria 2+ Urine Mucus 0 SEEN ABG Data ABG results: ABG 11/04/25 07:57 Specimen Type ART Sample Site L Radial pH 7.47 H Bicarbonate Actual 18.4 L Total CO2 19 Base Excess -5 L O2 Saturation 97 ABG pCO2 25.6 L ABG pO2 78 Mega Test Positive O2 Delivery Device Room Air Vent Mode Not entered Radiography Diagnostic Testing: Clinical Impression(s) from Imaging Studies Brain CT 11/04/25 07:29 IMPRESSION: 1. No evidence of acute intracranial hemorrhage, hydrocephalus, or herniation. 2. Right occipital to left lateral ventricle DISTRICT PLANT SUPERVISOR shunt access. 3. Maxillary, ethmoid, and sphenoid sinus disease. Reading Location: [facility] Abdomen/Pelvis CT 11/04/25 07:31 IMPRESSION: 1. Thickened bladder wall with coarse bladder calcifications as well as moderate left hydronephrosis and probable peripelvic cysts. 2. Colonic gaseous distention with mild colonic stool burden. The appendix was not definitively identified on this examination. 3. Hiatal hernia. 4. DISTRICT PLANT SUPERVISOR shunt tubing is noted. Reading Location: [facility] Chest X-Ray 11/04/25 08:00 IMPRESSION: No Acute Findings. Reading Location: [facility] Discharge Plan Triage Chief Complaint: General Illness ED Provider: Mehrdad Paniagua Dx/Rx/DC Orders Prescriptions: No Action baclofen 5 MG tablet 5 mg PO TID Patient Comments: Hold for sedation/lethargy Linzess 290 mcg capsule 290 mcg PO DAILY Motegrity 2 mg tablet 2 mg PO DAILY metoclopramide HCl [Reglan] 5 mg tablet 5 mg PO Q6H PRN (Reason: nausea and vomiting) bisacodyl 10 mg Suppository 10 mg AL DAILY PRN (Reason: Constipation) Qty: 0 0RF cefdinir 300 mg capsule 300 mg PO BID Qty: 14 0RF Primary Care Provider: Lyndon Sanders Referrals: Lyndon Sanders MD [Primary Care Provider, Medical] Print Language: Paraguayan
[2025-11-04] MEDS: 0.9% Normal Saline (1000mL) 1,000 ML 999 ML IV ×4 (07:47→10:59)
[2025-11-04 07:48] LABS: Hematocrit 42.5 % (40-54); Hemoglobin 14.7 g/dL (13.0-16.5); Mean Corp Hgb Conc 34.6 g/dL (32-36); Mean Corpuscular Volume 85.0 fL (80-94); Mean Platelet Vol. 9.8 fl (6.2-12.0); POSITIVE COUNT YES; POSITIVE DIFFERENTIAL YES; POSITIVE MORPHOLOGY YES; Platelet Count 242 K/mm3 (150-450); RBC Distribution Width CV 12.7 % (11.6-14.6); RBC Distribution Width SD 39.1 fl (35.1-43.9); Red Blood Count 5.00 M/mm3 (4.6-6.2); White Blood Count 25.6 K/mm3 (4.4-11.0)
[2025-11-04] MEDS: Piperacil/Tazobactam 4.5 GM in 0.9% Normal Saline (100mL MB+) 100 ML IV (07:48)
--- NOTE | 2025-11-04 08:00 | RAD_ITS ---
PROCEDURE: CHEST 1 VIEW (PORTABLE) 11/04/2025 REASON FOR EXAM: AMS TECHNIQUE: Frontal view of the chest. COMPARISON: 09/20/2023 FINDINGS: LUNGS AND PLEURA: The lungs are clear. No pleural effusion or pneumothorax. HEART AND MEDIASTINUM: The heart size and mediastinal contours are normal. BONES: No acute osseous abnormality. OTHER: SOIL SPECIALIST shunt tubing on the right. Moderate amount of air within the bowel loops, also present on the prior study. RAD/Chest 1 View (Portable) IMPRESSION: No Acute Findings. Reading Location: [id number]
[2025-11-04 08:01] LABS: Allen Test Positive; Base Excess -5 mmol/L (-2 to +2); PO2 78 mmHG (75-100); SITE L Radial; SO2 97 % (94-98)
[2025-11-04 08:09] LABS: AST(SGOT) 29 U/L (<=37); Alanine Aminotransfer ALT/SGPT 20 U/L (<=46); Albumin, Serum 3.7 g/dL (3.5-5.0); Alkaline Phosphatase 68 U/L (40-129); Anion Gap 14 (5-15); BUN 16 mg/dL (4-19); BUN/Creat Ratio 9.9 RATIO (10-20); Calcium,Total 8.7 mg/dL (7.6-11.0); Carbon Dioxide 23.2 mmol/L (21.0-32.0); Chloride 86 mmol/L (98-108); Estimated Creatinine Clearance 40.24 ml/min (50-250); Globulin 2.9 g/dL (2.2-4.2); Glucose 144 mg/dL (70-99); Potassium 3.2 mmol/L (3.3-5.1); Troponin T High Sensitivity 35 ng/L (<=22)
[2025-11-04 08:11] LABS: Differential Indicated MANUAL DIFF
[2025-11-04 08:12] LABS: Scan Smear per Review Criteria MANUAL DIFF
[2025-11-04 08:15] LABS: Neutrophil-Band 13 % (0-5); Neutrophil-Segmented 73 % (47-70); Total Cells Counted 100 (MANUAL DIFF)
[2025-11-04 08:22] LABS: Prothrombin Time (Protime)PT. 16.5 SECONDS (11.7-14.9)
[2025-11-04 08:23] LABS: Partial Thromboplast Time 31.2 Seconds (24.1-36.2)
[2025-11-04] MEDS: Vancomycin HCl 1,500 MG in 0.9% Normal Saline (500mL Bag) 500 ML 250 MG IV (08:58)
[2025-11-04 09:12] LABS: Mucous, Urine 0 SEEN /hpf (<or=2+); Squamous Epithelial Cells - UA 0 SEEN /hpf (0-5)
[2025-11-04 09:19] LABS: Color, Urine Yellow (Yellow); Glucose, Dipstick Normal (Normal); Ketone-Dipstick Negative (Negative); Leukocyte Esterase-Dipstick 500 /ul (Negative); Nitrite-Dipstick Positive (Negative); Occult Blood-Urine 25 /ul (Negative); Protein-Dipstick 100 mg/dl (Negative); Specific Gravity, Urine 1.010 (1.002-1.030); Urine Bilirubin Dipstick Negative (Negative)
[2025-11-04 09:28] LABS: Red Blood Cells-Urine 0-5 SEEN /hpf (0-5)
[2025-11-04 10:09] LABS: Troponin T High Sens 2 HR 19 ng/L (<=22)
--- NOTE | 2025-11-04 10:26 | PCM.HP.STD ---
HPI - General General Date of Admission: 11/04/25 Date of Service: 11/04/25 Chief Complaint: Altered mentation and weakness HPI Narrative JIAN ALTAMIRANO, is a 59 M who presented to [facility] ED on 11/04/2025 with altered mentation and weakness. Medical history significant for spina bifida with hydrocephalus s/p DIE CASTING MACHINE MAINTAINER shunt and chronic Bowman catheter with frequent bladder stones. He follows with urology at [facility] [place]. He presented here today with altered mentation and worsening weakness over the past few days. He has had decreased p.o. intake as well. In the ED he was hypotensive to the 80s over 50s and had sinus tachycardia to the 110s. Labs with WBC count 25, lactate 2.9, creatinine 1.6 (baseline around 0.7). UA infectious appearing. CT abdomen pelvis with thickened bladder wall with coarse bladder calcifications and moderate left hydronephrosis with perinephric stranding as well as punctate left nephrolithiasis. He was given 30 cc/kg of IV fluids with continued borderline low blood pressures. Hospitalist was contacted for admission. I saw the patient at bedside in the ED, sister present. Sister is his primary factory superintendent. Patient was laying back in bed and very fatigued appearing. He was opening his eyes for me and answering questions with appropriate one-word responses but was falling asleep during my encounter with him. Will be admitted for further management. [facility] Medical History (Updated 11/04/25 @ 14:[address] 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 Leukocytosis Acute hyponatremia Acute UTI Complete obstruction of small intestine COVID-19 Complicated UTI (urinary tract infection) Hydrocephalus Hyponatremia Chronic indwelling Bowman catheter Chronic intestinal pseudo-obstruction BPH (benign prostatic hyperplasia) Chronic hyponatremia Normal pressure hydrocephalus Bladder stones Bladder diverticulum Inguinal hernia Catheter-associated urinary tract infection Hyponatremia Hypertension Seizures Gastroparesis Ileus Chronic indwelling Bowman catheter Hydrocephalus History of urinary retention Home Medications ?Medication ?Instructions ?Recorded ?Last Taken ?Type baclofen 5 mg tablet 5 mg PO TID MUSCLE SPASMS 07/21/22 02/20/23 History linaclotide 290 mcg capsule 290 mcg PO DAILY IRRITABLE BOWELS 08/09/23 Unknown History (Linzess) prucalopride 2 mg tablet 2 mg PO DAILY CHRONIC CONSTIPATION 08/09/23 Unknown History (Motegrity) metoclopramide HCl 5 mg tablet 5 mg PO Q6H PRN nausea and vomiting 09/20/23 Unknown History (Reglan) bisacodyl 10 mg rectal suppository 10 mg [place] DAILY PRN Constipation #0 09/22/23 Unknown Rx ea cefdinir 300 mg capsule 300 mg PO BID #14 caps 09/22/25 Unknown Rx Allergy/AdvReac Type Severity Reaction Status Date / Time Iodinated Contrast Media Allergy Anaphylaxis Verified 11/04/25 07:20 (Iodinated Contrast Media - IV Dye) nitrofurantoin AdvReac Upset Verified 11/04/25 07:20 Stomach Family History Father Heart disease Kidney stones Prostate disease Hypertension Brother Kidney stones Mother Cancer Hypertension Peptic ulcer disease Surgical History DIE CASTING MACHINE MAINTAINER (ventriculoperitoneal) shunt status S/P release of urethral stricture S/P DIE CASTING MACHINE MAINTAINER shunt Social History household members: family Smoking Status: Never smoker alcohol intake: never substance use type: does not use ROS Constitutional Constitutional: Reports chills, fatigue, fever(s) and weakness Cardiovascular Cardiovascular: Denies chest pain Respiratory/Chest Respiratory/Chest: Denies shortness of breath at rest Gastrointestinal Gastrointestinal: Reports abdominal pain Patient's Goals Of Care . What matters most to you about your health?: Improvement in symptoms What would you like to achieve or improve as a result of your hospital stay?: To feel better Vital Signs Vital Signs Vital Signs: 11/04/25 07:18 11/04/25 07:18 11/04/25 07:22 Temperature 98.7 F 98.7 F Temperature Source Oral Oral Pulse Rate 103 H 103 H 101 H Respiratory Rate 14 14 16 Respiratory Effort Respiratory Pattern Blood Pressure 82/65 L 83/66 L 88/62 L Blood Pressure Mean 70 71 70 Pulse Ox 96 97 97 Oxygen Delivery Method Room Air Room Air Room Air 11/04/25 07:22 11/04/25 07:54 11/04/25 08:22 Temperature Temperature Source Pulse Rate 102 H 90 Respiratory Rate 14 16 Respiratory Effort Normal Respiratory Pattern Normal Blood Pressure 100/60 96/65 Blood Pressure Mean 73 75 Pulse Ox 100 97 Oxygen Delivery Method Room Air 11/04/25 09:00 11/04/25 09:36 11/04/25 09:56 Temperature Temperature Source Pulse Rate 98 96 79 Respiratory Rate 16 14 16 Respiratory Effort Respiratory Pattern Blood Pressure 85/72 L 90/69 99/68 Blood Pressure Mean 76 76 78 Pulse Ox 100 100 99 Oxygen Delivery Method Room Air Room Air 11/04/25 10:00 Temperature Temperature Source Pulse Rate 101 H Respiratory Rate 16 Respiratory Effort Respiratory Pattern Blood Pressure 96/71 Blood Pressure Mean 79 Pulse Ox 99 Oxygen Delivery Method Room Air Weight Weight: 57.2 kg Body Mass Index (BMI) 22.3 Physical Exam Const alert, no apparent distress and average body habitus Constitutional Narrative: Upper middle-age male, chronically ill-appearing, very fatigued appearing, making appropriate eye contact and answering questions with short appropriate normal responses, otherwise laying back in bed comfortably. General Appearance: cooperative and comfortable Orientation / Consciousness: lethargic HEENT normocephalic, head/scalp atraumatic, hearing grossly normal bilaterally and nasal mucous membranes and turbinates normal HEENT Narrative: Dry mucous membranes. Eyes PERRL, EOMs intact bilaterally and conjunctivae normal Neck full ROM Chest inspection of chest normal Resp normal respiratory effort, normal air movement, no use of accessory muscles and clear to auscultation bilaterally Cardio no murmurs and peripheral pulses 2+ throughout Cardio Narrative: Tachycardic, regular rhythm. GI GI Narrative: Abdomen mildly distended but otherwise soft and nontender to palpation. no CVA tenderness Bladder / Kidney Exam: catheter in place and bladder normal to palpation Back/Spine normal ROM Extremity normal to inspection, full ROM and no pedal edema Skin no rashes or lesions noted Results Lab / Micro Data 11/04/25 07:30 11/04/25 07:30 Labs: Laboratory Results - last 24 hr 11/04/25 07:30: WBC 25.6 H, RBC 5.00, Hgb 14.7, Hct 42.5, MCV 85.0, MCH 29.4, MCHC 34.6, RDW Std Deviation 39.1, RDW Coeff of Frieda 12.7, Plt Count 242, MPV 9.8, Immature Gran % (Auto) Not Reportable, Neut % (Auto) Not Reportable, Lymph % (Auto) Not Reportable, Bureau % (Auto) Not Reportable, Eos % (Auto) Not Reportable, Baso % (Auto) Not Reportable, Absolute Neuts (auto) 22.0 H, Absolute Lymphs (auto) 0.77 L, Total Counted 100, Neutrophils % (Manual) 73 H, Band Neutrophils % 13 H, Lymphocytes % (Manual) 3 L, Monocytes % (Manual) 5, Metamyelocytes % 6 H, Nucleated RBC % Not Reportable, Diff Path Review May , Platelet Estimate ADEQUATE, PT 16.5 H, INR 1.3, APTT 31.2, Sodium 123 L, Potassium 3.2 L, Chloride 86 L, Carbon Dioxide 23.2, Anion Gap 14, BUN 16, Creatinine 1.63 H, Estim Creat Clear Calc 40.24 L, Est GFR (MDRD) Non-Af 49 L, BUN/Creatinine Ratio 9.9 L, Glucose 144 H, Lactic Acid 2.9 H*, Calcium 8.7, Total Bilirubin 0.56, AST 29, ALT 20, Alkaline Phosphatase 68, Troponin T High Sens 35 H, Total Protein 6.6, Albumin 3.7, Globulin 2.9, Albumin/Globulin Ratio 1.3 11/04/25 09:00: Urine Color Yellow, Urine Clarity Cloudy, Urine pH 8.0, Ur Specific [place] 1.010, Urine Protein 100 H, Urine Glucose (UA) Normal, Urine Ketones Negative, Urine Occult Blood 25 H, Urine Nitrite Positive H, Urine Bilirubin Negative, Urine Urobilinogen Normal, Ur Leukocyte Esterase 500 H, Urine RBC 0-5 SEEN, Urine WBC 5-10 SEEN, Ur Squamous Epith Cells 0 SEEN, Amorphous Sediment 1+, Urine Bacteria 2+, Urine Mucus 0 SEEN 11/04/25 09:35: Troponin T Hi Sens 2 Hr 19 Micro: Microbiology 11/04/25 08:13 Mucosa - Nose SARS-CoV-2, Influenza & RSV (PCR) - Final ABG Data ABG results: ABG 11/04/25 07:57 Specimen Type ART Sample Site L Radial pH 7.47 H Bicarbonate Actual 18.4 L Total CO2 19 Base Excess -5 L O2 Saturation 97 ABG pCO2 25.6 L ABG pO2 78 Mega Test Positive O2 Delivery Device Room Air Vent Mode Not entered Imaging Radiology Impression Brain CT 11/04/25 07:29 IMPRESSION: 1. No evidence of acute intracranial hemorrhage, hydrocephalus, or herniation. 2. Right occipital to left lateral ventricle DIE CASTING MACHINE MAINTAINER shunt access. 3. Maxillary, ethmoid, and sphenoid sinus disease. Reading Location: [facility] Abdomen/Pelvis CT 11/04/25 07:31 IMPRESSION: 1. Thickened bladder wall with coarse bladder calcifications as well as moderate left hydronephrosis and probable peripelvic cysts. 2. Colonic gaseous distention with mild colonic stool burden. The appendix was not definitively identified on this examination. 3. Hiatal hernia. 4. DIE CASTING MACHINE MAINTAINER shunt tubing is noted. Reading Location: [facility] Chest X-Ray 11/04/25 08:00 IMPRESSION: No Acute Findings. Reading Location: [facility] Assessment & Plan Assessment/Plan (1) Sepsis: (2) Pyelonephritis: PLAN: Plan Patient is a 59-year-old male who presented to [facility] ED on 11/04/2025 with altered mentation and weakness. 1. Acute metabolic encephalopathy suspected due to sepsis in setting of pyelonephritis, moderate left-sided hydronephrosis with history of bladder stones and nephrolithiasis, chronic indwelling Bowman catheter ? Admit under inpatient status to ICU. Svp consulted. Follows with urology at [facility]. Met sepsis criteria on admit with SBP less than 90, lactate 2.9, altered mental status, and leukocytosis in setting of presumed urinary source. CT abdomen pelvis with thickened bladder wall with coarse bladder calcifications and moderate left hydronephrosis with perinephric stranding as well as punctate left nephrolithiasis. Notably, [facility] records reviewed and compared to CT abdomen pelvis from 10/11, the left-sided hydronephrosis and perinephric stranding are new. UA infectious appearing. CT brain unremarkable. Patient alert, making appropriate eye contact and answering questions with one-word responses but very fatigued. Given 30 cc/kg in the ED with continued hypotension to the 80s over 50s, but patient was still dry appearing on exam. Given another 1 L of IV fluid with improvement in blood pressure to the 100s over 70s. History of ESBL E. coli so initiated on meropenem. Of note, Bowman catheter was replaced at home 2 days prior to admission. Unfortunately, we do not have urology services available this week, so plan is for transfer to [facility] at this time. 2. Chronic debility due to spina bifida with hydrocephalus s/p DIE CASTING MACHINE MAINTAINER shunt ? PT/OT/case management consulted. Patient lives at home with his sister who is his primary factory superintendent. CT brain on admit with no concerns as above. Appreciate therapy recommendations. 3. TRESA ? Creatinine 1.63 on admit, baseline around 0.7. Presumed prerenal etiology due to sepsis as above. Further treatment as above. Monitor daily BMP and urine output. DVT prophylaxis: Heparin subcu CODE STATUS: Full code, verified Expected disposition: Transfer to [facility] Total clinical time spent by myself addressing the patient's medical issues, reviewing all the data, and collaborating with patient's care team: 79 minutes. Sepsis Attestation Sepsis Alert: Yes Sepsis Attestation: Agree w/Sepsis Date exam was performed: 11/04/25 Time exam was performed: 12:00 Possible Source of Sepsis: Genitourinary Sepsis Organ Dysfunction Criteria Present: SBP < 90 mmHg or MAP < 65 mmHg, SBP decrease of more than 40 mmHg, UOP < 0.5 mL/kg/hour for 2 consecutive hours, Lactic Acid > 2 mmol/L and New/Unexplained change in mental status Fluid Resuscitation Fluid resuscitation indicated?: Yes Fluid Resuscitation ordered: 30 ml/kg fluid bolus ordered Amount of fluid ordered: 3,000 (Patient with continued hypotension to the 80s over 50s after 30 cc/kg bolus (approximately 2 L) and was still dry appearing, so he received another 1 L of IV fluids with improvement in hypotension) Sepsis Note Date exam was performed: 11/04/25 Time exam was performed: 14:30 Sepsis Attestation: Sepsis re-evaluation was performed Response to fluids: Fluid responsive hypotension Charges/Coding Visit Charges Inpatient E&M: 40801 Init Hosp L3
[2025-11-04 11:18] LABS: Magnesium 1.9 mg/dL (1.5-2.2)
[2025-11-04 11:40] LABS: Reflex Lactate? Y
--- NOTE | 2025-11-04 12:29 | CON.PCM.CC_ITS ---
Assessment & Plan Assessment/Plan (1) Sepsis: (2) TRESA (acute kidney injury): PLAN: Plan RECOMMENDATIONS: 1. Complete fluid resuscitation per sepsis protocol. 2. Reflex lactate. 3. Recommend ID consultation for assistance with antimicrobial management. Continue empiric antimicrobials for now. 4. Consider urology consultation. IMPRESSIONS: 1. Sepsis The patient presented with sepsis due to suspected complicated UTI with acute sepsis related organ dysfunction as evidenced by altered mental status and lactic acidemia. The patient will receive supplemental IV fluid hydration per sepsis protocol. Will check reflex lactate level. Given the patient's history of multidrug-resistant organisms, recommend ID consultation to assist with antimicrobial management. In the interim, continue broad-spectrum antimicrobials, pending blood and urine culture results. Given the hydronephrosis noted on CT imaging, I would consider urology consultation. If urology is unavailable, I would consider transfer to a tertiary care facility, given the patient's complex medical history. 2. Toxic/metabolic encephalopathy Most likely secondary to underlying UTI. Initial CT head was unremarkable. 3. Acute kidney injury Most likely prerenal in etiology in the setting of #1. Continue fluid resuscitation per protocol. Continue to monitor urine output. No current indication for renal replacement therapy. 4. History of small bowel obstruction/chronic hyponatremia/history of normal pressure hydrocephalus status post WALKING DRAGLINE OPERATOR shunt Complicates care, management, recovery and prognosis. Continue supportive measures as noted above. This note was generated with [employer] dictation software. It may contain incorrect words, spelling, and punctuation that were not noted in checking the note before signing. HPI Consult Data Date of Consult: 11/04/25 HPI Narrative Reason for Consultation: Sepsis HPI Narrative: The patient is a 59-year-old male, with a history as outlined below, who presented to the emergency department on November 04 with altered mental status. The patient has a known history of chronic hyponatremia, unspecified seizure disorder, gastroparesis, neurogenic bladder with chronic indwelling Bowman, and hydrocephalus with functional paraplegia status post WALKING DRAGLINE OPERATOR shunt placement. The patient's family indicated that he was in his normal state of health from a mental status perspective yesterday but that he became increasingly less responsive and interactive overnight. On presentation to the emergency department, the patient was noted to be afebrile but was mildly tachycardic with a presenting blood pressure of 82/65 mmHg. Laboratory evaluation was notable for a white blood cell count of 25,000 with 13% band neutrophils. Chemistry profile was notable for a sodium of 123 with a potassium of 3.2, chloride of 86 and creatinine of 1.63. Lactate was elevated at 2.9. Troponin was mildly increased at 35. Urine analysis was positive for nitrites, leukocyte esterase and 2+ urine bacteria. CT abdomen/pelvis without contrast demonstrated a thickened bladder wall with moderate left hydronephrosis and colonic gaseous distention with mild colonic stool burden. Blood and urine cultures were collected. The patient does have a history of ESBL E. coli along with VRE isolated from the urine in the past. The patient was ordered to receive supplemental IV fluid hydration and was started on antimicrobial therapy. [facility] Medical History (Updated 11/04/25 @ 14:[address] 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 Leukocytosis Acute hyponatremia Acute UTI Complete obstruction of small intestine COVID-19 Complicated UTI (urinary tract infection) Hydrocephalus Hyponatremia Chronic indwelling Bowman catheter Chronic intestinal pseudo-obstruction BPH (benign prostatic hyperplasia) Chronic hyponatremia Normal pressure hydrocephalus Bladder stones Bladder diverticulum Inguinal hernia Catheter-associated urinary tract infection Hyponatremia Hypertension Seizures Gastroparesis Ileus Chronic indwelling Bowman catheter Hydrocephalus History of urinary retention Home Medications ?Medication ?Instructions ?Recorded ?Last Taken ?Type baclofen 5 mg tablet 5 mg PO TID MUSCLE SPASMS 02/20/23 History linaclotide 290 mcg capsule 290 mcg PO DAILY IRRITABLE BOWELS 08/09/23 Unknown History (Linzess) prucalopride 2 mg tablet 2 mg PO DAILY CHRONIC CONSTI PATION 08/09/23 Unknown History (Motegrity) metoclopramide HCl 5 mg tablet 5 mg PO Q6H PRN nausea and vomiting 09/20/23 Unknown History (Reglan) bisacodyl 10 mg rectal suppository 10 mg [place] DAILY PRN Constipation #0 09/22/23 Unknown Rx ea Allergy/AdvReac Type Severity Reaction Status Date / Time Iodinated Contrast Media Allergy Anaphylaxis Verified 11/04/25 07:20 (Iodinated Contrast Media - IV Dye) nitrofurantoin AdvReac Upset Verified 11/04/25 07:20 Stomach Family History Father Heart disease Kidney stones Prostate disease Hypertension Brother Kidney stones Mother Cancer Hypertension Peptic ulcer disease Surgical History WALKING DRAGLINE OPERATOR (ventriculoperitoneal) shunt status S/P release of urethral stricture S/P WALKING DRAGLINE OPERATOR shunt Social History household members: family Smoking Status: Never smoker alcohol intake: never substance use type: does not use ROS Review of Systems ROS Unobtainable: due to mental status Physical Exam Const Constitutional Narrative: Family present at the bedside. General Appearance: lethargic and ill appearing HEENT normocephalic and head/scalp atraumatic Eyes EOMs intact bilaterally, conjunctivae normal and no scleral icterus Neck supple General: trachea midline Chest inspection of chest normal Resp no use of accessory muscles Effort and Inspection: tachypneic Auscultation: diminished lung sounds Cardio S1 normal heart sound and S2 normal heart sound Rate: tachycardic GI soft to palpation and non-tender Extremity no clubbing, cyanosis or edema Skin no rashes or lesions noted Neuro CN's II-XII intact bilaterally and no focal motor deficits Psych Mood & Affect: flat affect Lab / Micro Data 11/04/25 07:30 11/04/25 07:30 Labs: Laboratory Results - last 24 hr 11/04/25 07:30: WBC 25.6 H, RBC 5.00, Hgb 14.7, Hct 42.5, MCV 85.0, MCH 29.4, MCHC 34.6, RDW Std Deviation 39.1, RDW Coeff of Frieda 12.7, Plt Count 242, MPV 9.8, Immature Gran % (Auto) Not Reportable, Neut % (Auto) Not Reportable, Lymph % (Auto) Not Reportable, [place] % (Auto) Not Reportable, Eos % (Auto) Not Reportable, Baso % (Auto) Not Reportable, Absolute Neuts (auto) 22.0 H, Absolute Lymphs (auto) 0.77 L, Total Counted 100, Neutrophils % (Manual) 73 H, Band Neutrophils % 13 H, Lymphocytes % (Manual) 3 L, Monocytes % (Manual) 5, M etamyelocytes % 6 H, Nucleated RBC % Not Reportable, Diff Path Review May , Platelet Estimate ADEQUATE, PT 16.5 H, INR 1.3, APTT 31.2, Sodium 123 L, P otassium 3.2 L, Chloride 86 L, Carbon Dioxide 23.2, Anion Gap 14, BUN 16, C reatinine 1.63 H, Estim Creat Clear Calc 40.24 L, Est GFR (MDRD) Non-Af 49 L, B UN/Creatinine Ratio 9.9 L, Glucose 144 H, Lactic Acid 2.9 H*, Calcium 8.7, P hosphorus 2.3 L, Magnesium 1.9, Total Bilirubin 0.56, AST 29, ALT 20, Alkaline Phosphatase 68, Troponin T High Sens 35 H, Total Protein 6.6, Albumin 3.7, Globulin 2.9, Albumin/Globulin Ratio 1.3 11/04/25 09:00: Urine Color Yellow, Urine Clarity Cloudy, Urine pH 8.0, Ur Specific [place] 1.010, Urine Protein 100 H, Urine Glucose (UA) Normal, Urine Ketones Negative, Urine Occult Blood 25 H, Urine Nitrite Positive H, Urine Bilirubin Negative, Urine Urobilinogen Normal, Ur Leukocyte Esterase 500 H, Urine RBC 0-5 SEEN, Urine WBC 5-10 SEEN, Ur Squamous Epith Cells 0 SEEN, Amorphous Sediment 1+, Urine Bacteria 2+, Urine Mucus 0 SEEN 11/04/25 09:35: Troponin T Hi Sens 2 Hr 19 Micro: Microbiology 11/04/25 08:13 Mucosa - Nose SARS-CoV-2, Influenza & RSV (PCR) - Final ABG Data ABG results: ABG 11/04/25 07:57 Specimen Type ART Sample Site L Radial pH 7.47 H Bicarbonate Actual 18.4 L Total CO2 19 Base Excess -5 L O2 Saturation 97 ABG pCO2 25.6 L ABG pO2 78 Mega Test Positive O2 Delivery Device Room Air Vent Mode Not entered Imaging Radiology Impression Brain CT 11/04/25 07:29 IMPRESSION: 1. No evidence of acute intracranial hemorrhage, hydrocephalus, or herniation. 2. Right occipital to left lateral ventricle WALKING DRAGLINE OPERATOR shunt access. 3. Maxillary, ethmoid, and sphenoid sinus disease. Reading Location: [facility] Abdomen/Pelvis CT 11/04/25 07:31 IMPRESSION: 1. Thickened bladder wall with coarse bladder calcifications as well as moderate left hydronephrosis and probable peripelvic cysts. 2. Colonic gaseous distention with mild colonic stool burden. The appendix was not definitively identified on this examination. 3. Hiatal hernia. 4. WALKING DRAGLINE OPERATOR shunt tubing is noted. Reading Location: [facility] Chest X-Ray 11/04/25 08:00 IMPRESSION: No Acute Findings. Reading Location: [facility] Sepsis Attestation Sepsis Alert: Yes Sepsis Attestation: Agree w/Sepsis Date exam was performed: 11/04/25 Time exam was performed: 12:53 Possible Source of Sepsis: Genitourinary Sepsis Organ Dysfunction Criteria Present: SBP < 90 mmHg or MAP < 65 mmHg, Lactic Acid > 2 mmol/L and New/Unexplained change in mental status Fluid Resuscitation Fluid resuscitation indicated?: Yes Fluid Resuscitation ordered: 30 ml/kg fluid bolus ordered Amount of fluid ordered: 3,000 Charges/Coding Visit Charges Inpatient E&M: 67148 Init Hosp L3
[2025-11-04] MEDS: Norepinephrine 8 MG in 0.9% Normal Saline (250mL Bag) 242 ML 9.4 MG CONT INF (13:30)
[2025-11-04] MEDS: 0.9% Normal Saline (250mL Bag) 250 ML 15 ML IV (13:58)
[2025-11-04] MEDS: Potassium Chloride 10mEq/100mL 10 MEQ/100 ML IV.SOLN. 100 MEQ IV BOLUS ×2 (14:04→15:15)
--- NOTE | 2025-11-04 14:48 | DCINST_ITS ---
Discharge Instructions DC O2, CPAP, BIPAP needs Home O2 Discharge instructions: No Follow Up Care Test Results: Test results from this visit will be discussed in further detail at your follow- up appointment, if applicable. Discharge Plan Admission Admit Date/Time: 11/04/25 10:26 Primary Reason for Your Visit: weakness and altered mentation Attending Provider: Alexey Serrano Primary Care Provider: Lyndon Sanders Consulting Providers: Juan Miguel Castro; Terell Delarosa; Nick Carmen; Lalo Pressley; Mahendra Franco; William Ellis; Gavino Farmer; Yanely Santacruz; Brenden Espinosa; Ananya Rodriguez; Andres Chau; Suad Baltazar; Contreras Herrera; Jose Srivastava; Ekaterina Way; Keyon Shannon; Ace Hunter; Abdirahman Carvajal; Mariana Rae; Darlin Sutton; Robert Soliman; Niurka Galan; Lizzette Martinez; Geo Menon; Jessica Odom; Jovanna Kerns; Bozena Hernández; Jennifer Hogan; Jessica Unger; Ace Wells; Wolf Avila; Frandy Nelson; Vy Mahajan; Clyde Alejandro; Joe Andrade; Deion Griffin; Sanam Dinh; Stephanie Bernal; Raz Ortiz; [place]; Joseph Grant; Amador Henry; Kaleigh Carbajal; Lyndon Hopson Discharge Orders/Prescriptions Prescriptions: Continued baclofen 5 MG tablet 5 mg PO TID Patient Comments: Hold for sedation/lethargy Linzess 290 mcg capsule 290 mcg PO DAILY Motegrity 2 mg tablet 2 mg PO DAILY metoclopramide HCl [Reglan] 5 mg tablet 5 mg PO Q6H PRN (Reason: nausea and vomiting) bisacodyl 10 mg Suppository 10 mg [place] DAILY PRN (Reason: Constipation) Qty: 0 0RF Discontinued cefdinir 300 mg capsule 300 mg PO BID Qty: 14 0RF Referrals / Follow Up: Lyndon Sanders MD [Primary Care Provider, Medical] Disposition Disposition (needs filled in before D/C Order can be placed): [facility]
--- NOTE | 2025-11-04 14:48 | DS.PCM_ITS ---
Providers Date of Admission: 11/04/25 Date of Discharge: 11/04/25 Primary Care Physician: Dr. Lyndon Sanders MD Consultations 11/04/25 13:23 Consult: Infectious Disease Routine Consulting Provider: Juan Miguel Castro Reason for Consult: Sepsis with h/o MDRO EMERGENT Consult: No Notified: Yes Date Notified: 11/04/25 Time Notified: 14:07 Method of Notification: Text Consult: Dish Machine Operator / Pulmonary Medicine Routine Consulting Provider: Intensivists/Pulmonary Med Reason for Consult: urosepsis EMERGENT Consult: No Notified: Yes Date Notified: 11/04/25 Time Notified: 14:45 Method of Notification: Verbal Reason For Visit: UROSEPSIS Diagnosis Discharge Diagnosis (1) Sepsis: Status: Acute Code(s): A41.9 - Sepsis, unspecified organism (2) Pyelonephritis: Status: Acute Code(s): N12 - Tubulo-interstitial nephritis, not specified as acute or chronic Medications at Discharge Home Medications baclofen 5 mg tablet 5 mg PO TID MUSCLE SPASMS 07/21/22 linaclotide 290 mcg capsule (Linzess) 290 mcg PO DAILY IRRITABLE BOWELS 08/09/23 prucalopride 2 mg tablet (Motegrity) 2 mg PO DAILY CHRONIC CONSTIPATION 08/09/23 metoclopramide HCl 5 mg tablet (Reglan) 5 mg PO Q6H PRN nausea and vomiting 09/20/23 bisacodyl 10 mg rectal suppository 10 mg WA DAILY PRN Constipation #0 ea 09/22/23 Hospital Course Operations None Procedures - (CT abdomen pelvis without contrast, CT brain, chest x-ray) Summary of Care Provided Minutes Spent on Discharge: 37 Hospital Course: Patient is a 59-year-old male who presented to [facility] ED on 11/04/2025 with altered mentation and weakness. Short hospital course as noted below. Patient transferred to [facility] on evening of 11/04 for further management. 1. Acute metabolic encephalopathy suspected due to sepsis in setting of acute pyelonephritis, moderate left-sided hydronephrosis with history of bladder stones and nephrolithiasis, chronic indwelling Bowman catheter ? Dish Machine Operator followed. Follows with urology at [facility] Main campus. Met sepsis criteria on admit with SBP less than 90, lactate 2.9, altered mental status, and leukocytosis in setting of presumed urinary source. ABG with pH 7.4 and bicarb 23 on BMP, no acidosis noted. CT abdomen pelvis with thickened bladder wall with coarse bladder calcifications and moderate left hydronephrosis with perinephric stranding as well as punctate left nephrolithiasis. Notably, [facility] records reviewed and compared to CT abdomen pelvis from 10/11, the left-sided hydronephrosis and perinephric stranding are new. UA infectious appearing. CT brain unremarkable. Patient alert, making appropriate eye contact and answering questions with one-word responses but very fatigued. Given 30 cc/kg in the ED with continued hypotension to the 80s over 50s, but patient was still dry appearing on exam. Given another 1 L of IV fluid with improvement in blood pressure to the 100s over 70s. History of ESBL E. coli so initiated on meropenem. Of note, Bowman catheter was replaced at home 2 days prior to admission. Unfortunately, we do not have urology services available this week, so patient was transferred to [facility] on the evening of 11/04 for further management. 2. Acute on chronic debility with history of spina bifida with hydrocephalus s/p ALARM SIGNAL OPERATOR shunt ? PT/OT/case management consulted. Patient lives at home with his sister who is his primary etymology professor. CT brain on admit with no concerns as above. 3. TRESA ? Creatinine 1.63 on admit, baseline around 0.7. Presumed prerenal etiology due to sepsis as above. Further treatment as above. Monitor daily BMP and urine output. Total clinical time spent by myself addressing the patient's medical issues, reviewing all the data, and collaborating with patient's care team: 37 minutes. Physical Exam Const alert, no apparent distress and average body habitus Constitutional Narrative: Upper middle-age male, chronically ill-appearing, very fatigued appearing, making appropriate eye contact and answering questions with short appropriate normal responses, otherwise laying back in bed comfortably. General Appearance: cooperative and comfortable Orientation / Consciousness: lethargic HEENT normocephalic, head/scalp atraumatic, hearing grossly normal bilaterally and nasal mucous membranes and turbinates normal HEENT Narrative: Dry mucous membranes. Eyes PERRL, EOMs intact bilaterally and conjunctivae normal Neck full ROM Chest inspection of chest normal Resp normal respiratory effort, normal air movement, no use of accessory muscles and clear to auscultation bilaterally Cardio no murmurs and peripheral pulses 2+ throughout Cardio Narrative: Tachycardic, regular rhythm. GI GI Narrative: Abdomen mildly distended but otherwise soft and nontender to palpation. no CVA tenderness Bladder / Kidney Exam: catheter in place and bladder normal to palpation Back/Spine normal ROM Extremity normal to inspection, full ROM and no pedal edema Skin no rashes or lesions noted Weight / BMI Weight Weight: 59.2 kg Body Mass Index (BMI) 23.1 ABG / Lab / Microbiology Data 11/04/25 07:30 11/04/25 07:30 Laboratory: Laboratory Results - last 24 hr 11/04/25 07:30: WBC 25.6 H, RBC 5.00, Hgb 14.7, Hct 42.5, MCV 85.0, MCH 29.4, MCHC 34.6, RDW Std Deviation 39.1, RDW Coeff of Frieda 12.7, Plt Count 242, MPV 9.8, Immature Gran % (Auto) Not Reportable, Neut % (Auto) Not Reportable, Lymph % (Auto) Not Reportable, Evans % (Auto) Not Reportable, Eos % (Auto) Not Reportable, Baso % (Auto) Not Reportable, Absolute Neuts (auto) 22.0 H, Absolute Lymphs (auto) 0.77 L, Total Counted 100, Neutrophils % (Manual) 73 H, Band Neutrophils % 13 H, Lymphocytes % (Manual) 3 L, Monocytes % (Manual) 5, M etamyelocytes % 6 H, Nucleated RBC % Not Reportable, Diff Path Review Reviewed, Platelet Estimate ADEQUATE, PT 16.5 H, INR 1.3, APTT 31.2, Sodium 123 L, P otassium 3.2 L, Chloride 86 L, Carbon Dioxide 23.2, Anion Gap 14, BUN 16, C reatinine 1.63 H, Estim Creat Clear Calc 40.24 L, Est GFR (MDRD) Non-Af 49 L, B UN/Creatinine Ratio 9.9 L, Glucose 144 H, Lactic Acid 2.9 H*, Calcium 8.7, P hosphorus 2.3 L, Magnesium 1.9, Total Bilirubin 0.56, AST 29, ALT 20, Alkaline Phosphatase 68, Troponin T High Sens 35 H, Total Protein 6.6, Albumin 3.7, Globulin 2.9, Albumin/Globulin Ratio 1.3 11/04/25 09:00: Urine Color Yellow, Urine Clarity Cloudy, Urine pH 8.0, Ur Specific [place] 1.010, Urine Protein 100 H, Urine Glucose (UA) Normal, Urine Ketones Negative, Urine Occult Blood 25 H, Urine Nitrite Positive H, Urine Bilirubin Negative, Urine Urobilinogen Normal, Ur Leukocyte Esterase 500 H, Urine RBC 0-5 SEEN, Urine WBC 5-10 SEEN, Ur Squamous Epith Cells 0 SEEN, Amorphous Sediment 1+, Urine Bacteria 2+, Urine Mucus 0 SEEN 11/04/25 09:35: Troponin T Hi Sens 2 Hr 19 Microbiology: Microbiology 11/04/25 08:13 Mucosa - Nose SARS-CoV-2, Influenza & RSV (PCR) - Final ABG: ABG 11/04/25 07:57 Specimen Type ART Sample Site L Radial pH 7.47 H Bicarbonate Actual 18.4 L Total CO2 19 Base Excess -5 L O2 Saturation 97 ABG pCO2 25.6 L ABG pO2 78 Mega Test Positive O2 Delivery Device Room Air Vent Mode Not entered Radiography Diagnostic Testing: Radiology Impression Brain CT 11/04/25 07:29 IMPRESSION: 1. No evidence of acute intracranial hemorrhage, hydrocephalus, or herniation. 2. Right occipital to left lateral ventricle ALARM SIGNAL OPERATOR shunt access. 3. Maxillary, ethmoid, and sphenoid sinus disease. Reading Location: [id number] Abdomen/Pelvis CT 11/04/25 07:31 IMPRESSION: 1. Thickened bladder wall with coarse bladder calcifications as well as moderate left hydronephrosis and probable peripelvic cysts. 2. Colonic gaseous distention with mild colonic stool burden. The appendix was not definitively identified on this examination. 3. Hiatal hernia. 4. ALARM SIGNAL OPERATOR shunt tubing is noted. Reading Location: [id number] Chest X-Ray 11/04/25 08:00 IMPRESSION: No Acute Findings. Reading Location: [id number] D/C Instructions DC O2, CPAP, BIPAP Needs Home O2 Discharge instructions: No Patient's Goals Of Care - F/U Goals Reviewed Goals of care reviewed with patient: NA-No significant change in clinical Status /major procedure scheduled Meaningful Use Info Meaningful Use Meaningful Use Diagnoses (Choose all that apply): None applicable Discharge Plan Admission Admit Date/Time: 11/04/25 10:26 Primary Reason for Your Visit: weakness and altered mentation Attending Provider: Alexey Serrano Primary Care Provider: Lyndon Sanders Consulting Providers: Juan Miguel Castro; Terell Delarosa; Nick Carmen; Lalo Pressley; Mahendra Franco; Willaim Ellis; Gavino Farmer; Yanely Santacruz; Brenden Espinosa; Ananya Rodriguez; Andres Chau; Suad Baltazar; Contreras Herrera; Jose Srivastava; Ekaterina Way; Keyon Shannon; Ace Hunter; Abdirhaman Carvajal; Mariana Rae; Darlin Sutton; Robert Soliman; Niurka Galan; Lizzette Martinez; Geo Menon; Jessica Odom; Jovanna Kerns; Bozena Hernández; Jennifer Hogan; Jessica Unger; Ace Wells; Wolf Avila; Frandy Nelson; Vy Mahajan; Clyde Alejandro; Joe Andrade; Deion Griffin; Sanam Dinh; Stephanie Brenal; Raz Ortiz; [place]; Joseph Grant; Amador Henry; Kaleigh Carbajal; Lyndon Hopson Discharge Orders/Prescriptions Prescriptions: Continued baclofen 5 MG tablet 5 mg PO TID Patient Comments: Hold for sedation/lethargy Linzess 290 mcg capsule 290 mcg PO DAILY Motegrity 2 mg tablet 2 mg PO DAILY metoclopramide HCl [Reglan] 5 mg tablet 5 mg PO Q6H PRN (Reason: nausea and vomiting) bisacodyl 10 mg Suppository 10 mg WA DAILY PRN (Reason: Constipation) Qty: 0 0RF Discontinued cefdinir 300 mg capsule 300 mg PO BID Qty: 14 0RF Referrals / Follow Up: Lyndon Sanders MD [Primary Care Provider, Medical] Disposition Disposition (needs filled in before D/C Order can be placed): Acute Care Hospital Charges/Coding Visit Charges Inpatient E&M: 98610 Disch Hosp >30min
[2025-11-04] MEDS: Meropenem 2 GM in 0.9% Normal Saline (100mL Bag) 100 ML IV (15:09)
--- NOTE | 2025-11-04 20:16 | CASEMGMT ---
Care Management Face to Face with patient for initial transition planning/care coordination assessment in the ED.? This property underwriter introduced self and role at [facility]. Patient not alert or oriented. Patients sister ?willing to participate in assessment and is able to answer all questions appropriately.? Care providers, pharmacy, and demographics verified. Admitting Diagnosis: ?TRESA Other diagnosis history: hydrocephalus, indwelling hannon cath, HTN PCP: ?Tommy Specialists: ?[facility], Neurologist Preferred Pharmacy:? [facility] Insurance: ?Jaars Prescription Benefit: ?yes Living Will/HPOA: ?has HPOA and LW on file at [facility] LNOK: ?sisters Lesli and Isadora Living Arrangements: ?patient lives with Lesli who, between her and her sister, provide all ADL and IADL care.?? Transportation: ?Sister drives patient where needed.? DME: hospital bed, bedside commode, walker, cane, wheelchair HHC: ?[facility] for nurse 2 x per month for hannon care SNF/Rehab: none Community Resources: ?none Behavioral Health History: none Patient goals: Patient wishes to discharge home, denies need for home health care at this time. Patient denies any further needs or concerns at this time. Disposition Plan: admission to acute; RN CM/SW to follow for discharge planning needs that may arise. Nathalie Pat, WIND FARM SUPPORT SPECIALIST, SERVICES [facility]
== END 2025-11-04 16:32 | disposition short-term general hospital (02) | DRG 871 ==
LOC: ED 08:24 → ICU 10:46
PROVIDERS: Admitting Provider Hospitalist; Emergency Provider Surgery; PCP Family Medicine; Visit Provider Hospitalist
DX: A41.9 Sepsis, unspecified organism (principal); G93.41 Metabolic encephalopathy; E87.20 Acidosis, unspecified; Q05.4 Unspecified spina bifida with hydrocephalus; N17.9 Acute kidney failure, unspecified; N13.2 Hydronephrosis with renal and ureteral calculous obstruction; N10 Acute pyelonephritis; I10 Essential (primary) hypertension; N32.89 Other specified disorders of bladder; Z98.2 Presence of cerebrospinal fluid drainage device; Z86.16 Personal history of COVID-19
CPT/HCPCS: 36600; 70450; 71045; 74176; 80053; 81001; 82803; 82962; 83605; 83735; 84100; 84484; 85025; 85610; 85730; 87040; 87077; 87086; 87088; 87186; 87631; 93005; 99285; J2185; A4216; J2405